=== PATIENT | male | born 1970 | race Hispanic/Latino ===

== ENCOUNTER 2018-05-09 18:20 | Observation (INO) | payer OTHER ==
--- OUTSIDE RECORDS SUMMARY | 2018-05-09 18:24 | XMS REPORT | Clinical Summary ---
:1970 Author Organization [facility] Address [address] [place] [address] Care Team Providers Name Role Phone New ZacariasOVlad Primary Care Provider Allergies Active Allergy Reactions Severity Noted Date Comments Aspirin GI Bleeding High 10/11/2016 GI bleeding Atorvastatin Other (See Comments) Low 12/09/2017 Cough Iodine Hives 05/19/2007 IV iodine and iodine -Cardiac arrest Other 10/11/2016 Anesthesia: during Gallbladder and back surgery pt went into cardiac arrest. ([facility]). Ropinirole 10/11/2016 Hypotensive for 2 days. Shellfish Derived Anaphylaxis High 10/11/2016 Cardiac arrest Medications Medication Sig Dispensed Refills Start End Date Status Date metFORMIN (GLUCOPHAGE) Take 1,000 mg 0 Active 1,000 mg tablet by mouth 2 (two) times a day with meals. BD ULTRA-FINE LILY PEN USE BID UTD 1 Active NEEDLES 32 gauge x 7 32" needle ACCU-CHEK GUIDE strip DIRECTED 4 Active test strips TID 7 ACCU-CHEK GUIDE GLUCOSE TK 1 Active METER misc DIRECTED 7 ACCU-CHEK FASTCLIX misc TEST TID 4 Active DIRECTED 7 LYRICA 200 mg capsule Take 1 tablet 0 Active by mouth 3 8 (three) times a day. sertraline (ZOLOFT) 50 Take 50 mg by 0 Active MG tablet mouth daily. traZODone (DESYREL) 50 Take 50 mg by 0 Active MG tablet mouth nightly. promethazine Take 25 mg by 0 Active (PHENERGAN) 25 MG mouth every 6 tablet (six) hours as needed for nausea or vomiting. rosuvastatin (CRESTOR) Take 10 mg by 0 Active 10 MG tablet mouth nightly. empagliflozin Take 10 mg by 0 Active (JARDIANCE) 10 mg mouth every tablet tablet morning. amLODIPine (NORVASC) 5 Take 5 mg by 0 Active mg tablet mouth daily. esomeprazole (NexIUM) Take 40 mg by 0 05/01/20 Discontinued 40 MG capsule mouth every 18 morning. montelukast (SINGULAIR) Take 10 mg by 0 05/01/20 Discontinued 10 mg tablet mouth every 18 morning. MOMETASONE/FORMOTEROL Inhale 1 puff 0 11/21/19 Discontinued (DULERA INHL) 2 (two) times 18 a day as needed. Uses 2 to 3 times a week. VICTOZA 2-JOVI 0.6 Inject 0.6 mg 3 12/23/19 Discontinued mg/0.1 mL (18 mg/3 mL) under the 7 18 pen injector skin every morning. metoprolol succinate XL TK 1 T PO 3 12/22/19 Discontinued (TOPROL-XL) 25 mg 24 hr ONCE A DAY in 7 18 tablet the morning ondansetron (ZOFRAN) 8 TK 1 T PO q8 2 12/25/19 Discontinued MG tablet prn 7 18 LYRICA 50 mg capsule Take 50 mg by 0 12/22/19 Discontinued mouth 3 7 18 (three) times a day. baclofen (LIORESAL) 10 TK 1 T PO TID 0 05/01/20 Discontinued MG tablet 7 18 hydroCHLOROthiazide TK 1 T PO QD 2 11/21/19 Discontinued (HYDRODIURIL) 12.5 MG IN THE 7 18 tablet MORNING oxyCODone-acetaminophen TK 1 T PO TID 0 05/01/20 Discontinued (PERCOCET) 10-325 mg PRN 7 18 per tablet LYRICA 75 mg capsule TK 1 C TID 1 12/22/19 Discontinued 7 18 JARDIANCE 10 mg tablet TK 1 T PO QD 3 12/23/19 Discontinued 7 18 metroNIDAZOLE (FLAGYL) Take 1 tablet 21 tablet 0 05/18/19 500 MG tablet (500 mg 7 18 total) by mouth 3 (three) times a day for 7 days. ciprofloxacin (CIPRO) Take 1 tablet 14 tablet 0 05/18/19 500 MG tablet (500 mg 7 18 total) by mouth 2 (two) times a day for 7 days. ondansetron ODT (ZOFRAN Take 1 tablet 15 tablet 0 05/23/19 Discontinued ODT) 4 MG (4 mg total) 7 18 disintegrating tablet by mouth every 8 (eight) hours as needed for nausea or vomiting for up to 15 days. acetaminophen-codeine Take 1-2 15 tablet 0 05/14/19 (TYLENOL WITH CODEINE tablets by 7 18 #3) 300-30 mg per mouth every 6 tablet (six) hours as needed for moderate pain for up to 3 days. clindamycin (CLEOCIN) TK ONE C PO Q 0 11/21/19 Discontinued 300 MG capsule 8 H 7 18 TOUJEO SOLOSTAR 300 20 UNITS QHS 4 05/01/20 Discontinued unit/mL (1.5 mL) SC 7 18 insulin pen oxyCODone (ROXICODONE) TK 1 T PO TID 0 09/12/19 Discontinued 10 MG tablet 7 18 acetaminophen-codeine Take 1-2 15 tablet 0 05/28/19 (TYLENOL WITH CODEINE tablets by 8 18 #3) 300-30 mg per mouth every 6 tablet (six) hours as needed for moderate pain for up to 5 days. famotidine (PEPCID) 40 Take 1 tablet 20 tablet 0 06/22/19 MG tablet (40 mg total) 8 18 by mouth nightly as needed for heartburn for up to 30 days. ondansetron ODT (ZOFRAN Take 1 tablet 20 tablet 0 06/22/19 ODT) 4 MG (4 mg total) 8 18 disintegrating tablet by mouth every 8 (eight) hours as needed for nausea or vomiting for up to 30 days. keTOROlac (TORadol) 10 Take 1 tablet 20 tablet 0 06/10/19 mg tablet (10 mg total) 8 18 by mouth every 6 (six) hours as needed for moderate pain for up to 5 days. meloxicam (MOBIC) 7.5 Take 7.5 mg 0 05/01/20 Discontinued mg tablet by mouth 2 18 (two) times a day. milnacipran (SAVELLA) Take 25 mg by 0 05/01/20 Discontinued 25 mg tablet mouth 2 (two) 18 times a day. tamsulosin (FLOMAX) 0.4 Take 1 30 capsule 0 07/13/19 mg capsule,extended capsule (0.4 8 18 release 24hr mg total) by mouth daily for 30 days. traMADol (ULTRAM) 50 mg Take 1 tablet 20 tablet 0 06/17/19 tablet (50 mg total) 8 18 by mouth every 6 (six) hours as needed for moderate pain for up to 5 days. amoxicillin-pot Take 1 tablet 20 tablet 0 09/04/19 clavulanate (AUGMENTIN) by mouth 8 18 875-125 mg per tablet every 12 (twelve) hours for 10 days. acetaminophen-codeine Take 1-2 10 tablet 0 08/28/19 (TYLENOL WITH CODEINE tablets by 8 18 #3) 300-30 mg per mouth every 8 tablet (eight) hours as needed for moderate pain for up to 3 days. famotidine (PEPCID AC) Take 10 mg by 0 05/01/20 Discontinued 10 MG tablet mouth 2 (two) 18 times a day. diphenhydrAMINE Take 1 90 capsule 0 01/21/20 (BENADRYL) 25 mg capsule (25 8 18 capsule mg total) by mouth 3 (three) times a day for 30 days. clindamycin (CLEOCIN) Take 3 60 capsule 0 12/28/19 150 MG capsule capsules (450 8 18 mg total) by mouth 4 (four) times a day for 5 days. levoFLOXacin (LEVAQUIN) Take 1 tablet 5 tablet 0 12/29/19 500 MG tablet (500 mg 8 18 total) by mouth daily for 5 days. oxyCODone-acetaminophen Take one for 21 tablet 0 12/30/19 (PERCOCET) 10-325 mg severe pain 8 18 per tablet as needed every eight hours for up to 7 days. ondansetron (ZOFRAN) 4 Take 1 tablet 10 tablet 0 05/01/20 Discontinued MG tablet (4 mg total) 8 18 by mouth every 8 (eight) hours as needed for nausea or vomiting for up to 10 doses. pregabalin (LYRICA) 200 Take 200 mg 0 05/01/20 Discontinued MG capsule by mouth 2 18 (two) times a day. Active Problems Problem Noted Date Generalized weakness 05/04/2018 Arthralgia of multiple sites 05/01/2018 Obesity (BMI 30-39.9) 02/26/2018 Cellulitis 12/21/2017 Essential hypertension 12/09/2017 Mixed hyperlipidemia 12/09/2017 Chest pain, rule out acute myocardial infarction 02/10/2017 Resolved Problems Problem Noted Date Resolved Date Generalized weakness 05/01/2018 05/01/2018 Encounters Date Type Specialty Care Team Description 05/01/2018 - Hospital Encounter General Internal DiptiChristiano Generalized weakness 05/05/2018 Shruti Walls MD (Primary Dx) Jude Lawson MD 02/07/2018 Emergency Emergency Medicine [facility], initial encounter (Primary Dx); Anthony Francis MD Pain of right forearm; Hand pain, right 01/15/2018 Emergency Emergency Medicine [facility], initial encounter (Primary Dx); Santiago Estrada Contusion of rib on left side, initial encounter; Contusion of right upper extremity, initial encounter; Hematoma of scalp, initial encounter; Secondary hypertension 01/02/2018 - Emergency Emergency Medicine Kennedy Rodgers Abdominal pain, 01/03/2018 DO Mariola unspecified abdominal location (Primary Dx) 12/24/2017 Emergency Emergency Medicine Gal Dela Cruz Abdominal pain, MD Eufemia unspecified abdominal location (Primary Dx) 12/22/2017 Documentation Pain Medicine Eliezer Gauthier MD 12/21/2017 - Hospital Encounter General Surgery Gayla Olguin Cellulitis of 12/22/2017Emily Wyman MD abdominal wall Eduardo Farrell, (Primary Dx) DO 12/21/2017 Orders Only Pain Medicine Eliezer Gauthier MD 12/21/2017 Documentation Pain Medicine Eliezer Gauthier MD 12/20/2017 - Emergency Emergency Medicine Js Alegre, Postoperative 12/21/2017 MD infection, initial encounter (Primary Dx) 12/20/2017 Intake Access N/A 12/18/2017 Anesthesia Event Orthopedic Surgery Maryan Gudino, PASSENGER SERVICE AGENT 12/18/2017 Surgery Orthopedic Surgery Abrahan, INSERTION PAIN PUMP MD Eliezer FENTANYL 12/18/2017 Hospital Encounter Orthopedic Surgery Eliezer Gauthier MD 11/20/2017 Pre-Admit Testing Pre-Admission Abrahan, Preop testing Appointment Testing MD Eliezer (Primary Dx) 11/20/2017 Emergency Emergency Medicine Kennedy Rodgers Acute right-sided Mohammad, low back pain, with sciatica presence unspecified (Primary Dx) 10/29/2017 Emergency Emergency Medicine Pam Rubio, Shoulder strain, He Cortes, cherelle, initial MD encounter (Primary Dx) 09/11/2017 Anesthesia Event Orthopedic Surgery Deng Manzanares, OTR FLATBED DRIVER 09/11/2017 Surgery Orthopedic Surgery Abrahan, INTRATHECAL, FOR MD Eliezer PAIN PUMP TRIAL 09/11/2017 Hospital Encounter Orthopedic Surgery Eliezer Gauthier MD 08/24/2017 Emergency Emergency Medicine Camilo Olguin, Pain due to dental caries (Primary Dx); Chronic dental pain; Dental abscess; Hyperglycemia; Acute maxillary sinusitis, recurrence not specified 06/12/2017 Emergency Emergency Medicine Herman, Urinary hesitancy ( Primary Dx); Hema-Jerardo Essential hypertension MD Hair 06/05/2017 Emergency Emergency Medicine Herman, Chronic bilateral Hema-Jerardo low back pain with MD Hair bilateral sciatica (Primary Dx) 05/23/2017 Emergency Emergency Medicine Js Alegre, Epigastric pain (Primary Dx) 05/11/2017 Emergency Emergency Medicine Olga, Acute gastritis Anthony Francis MD without hemorrhage, unspecified gastritis type (Primary Dx) after 05/08/2017 Family History Medical History Relation Name Comments Leukemia Brother Diabetes type II Father Hypertension Father Stroke Father No Known Problems Maternal Grandfather Cancer Maternal Grandmother Diabetes Maternal Grandmother Diabetes Mother Hypertension Mother Stroke Mother No Known Problems Paternal Grandfather No Known Problems Paternal Grandmother Cancer Sister Diabetes type II Sister Ovarian cancer Sister Ovarian cancer Sister Relation Name Status Comments Brother Father Maternal Grandfather Maternal Grandmother Mother Paternal Grandfather Paternal Grandmother Sister Sister Social History Tobacco Use Types Packs/Day Years Used Date Never Smoker Smokeless Tobacco: Never Used Alcohol Use Drinks/Week oz/Week Comments No Sex Assigned at Date Recorded Not on file Job Start Date Occupation Industry Not on file Not on file Not on file Travel History Travel Start Travel End No recent travel history available. Last Filed Vital Signs Vital Sign Reading Time Taken Blood Pressure 109/57 05/05/2018 10:44 AM [employer] SUPERVIS[employer] Pulse 64 05/05/2018 10:44 AM [employer] Temperature 36.8 C (98.2 F) 05/05/2018 10:44 AM [employer]PER[employer] Respiratory Rate 15 05/05/2018 10:44 AM [employer] Oxygen Saturation 97% 05/05/2018 10:44 AM [employer]PER[employer] Inhaled Oxygen Concentration - - Weight 111 kg (244 lb) 05/01/2018 12:14 PM [employer] Height 167.6 cm (5' 6") 05/01/2018 12:14 PM [employer] SUPER[employer] Body Mass Index 39.38 05/01/2018 12:14 PM [employer] SUPER[employer]OR Plan of Treatment Health Maintenance Due Date Last Done Comments INFLUENZA VACCINE 12/11/2017 Implants Implanted Type Area Package Line Relief Operator Device Shelf Model / Identifier Expiration Serial Date / Lot Surescan Sensor Ipg - [id number] - [id number] IMPLANT N/A: N/A [employer] -NEUROLO 08/07/2017 [id number] / Implanted: Qty: 1 on 10/17/2016 by Eliezer Gauthier MD DEVICES GICAL [id number] / N/A Patient Buyer Intern - [id number] [id number] IMPLANT N/A: N/A [employer]-NEUROLO [id number] / Implanted: Qty: 1 on 10/17/2016 by Eliezer Gauthier MD DEVICES VERONICA / Charging System, W Sensor, Spinal Stimulation, Ea - [id number] [id number] IMPLANT N/A : N/A [employer]-NEUROLO [id number] / Implanted: Qty: 1 on 10/17/2016 by Eliezer Gauthier MD DEVICES VERONICA / Kit Pckt Adptr For Scs 2x4in - [id number] Neurosurgical N/A: N/A [employer] 01/23/2020 [id number] / Implanted: Qty: 1 on 10/17/2016 by Eliezer Gauthier MD Implants NEUROMODULATION / [id number] Pump Infsn Synchromed Ii W/ Fltr Sut Loop Prgrmbl Rsvr 20ml - [id number] - [id number] Neurosurgical Right: [employer] 05/26/2019 [id number] / Implanted: Qty: 1 on 12/18/2017 by Eliezer Gauthier MD Implants Abdomen, NEUROMODULATION [id number] / Lower [id number] Quadrant Passer Cath W/ Rmvbl Hndl And Ppe Obtrtr 38cm Strl - [id number] Neurosurgical N/A: N/A [employer] [facility] [email or web address]] - 10/10/2022 [id number] / Implanted: Qty: 1 on 12/18/2017 by Eliezer Gauthier MD Implants NEUROLOGICAL / [id number] Procedures Procedure Name Priority Date/Time Associated Comments Diagnosis ESTIMATED GFR Routine 05/04/2018 5:05 Results for this AM [employer] SUPER[employer] procedure are in the results section. BASIC METABOLIC PANEL Routine 05/04/2018 5:05 Results for this AM [employer] procedure are in the results section. HC COMPLETE BLD COUNT Routine 05/04/2018 5:05 Results for this W/AUTO DIFF AM [employer]PER[employer] procedure are in the results section. POC GLUCOSE Routine 05/02/2018 5:46 Results for this PM [employer]PER[employer] procedure are in the results section. POC GLUCOSE Routine 05/01/2018 5:01 Results for this PM [employer] procedure are in the results section. URINALYSIS SCREEN AND Routine 05/01/2018 3:33 Results for this MICROSCOPY, WITH REFLEX PM [employer] SUPERVISOR procedure are in TO CULTURE the results section. URINE CULTURE Routine 05/01/2018 3:33 Results for this PM [employer]PER[employer] procedure are in the results section. CT HEAD WO CONTRAST STAT 05/01/2018 2:36 Results for this PM [employer] SUPER[employer] procedure are in the results section. VENOUS BLOOD GAS STAT 05/01/2018 1:51 Results for this PM [employer]PER[employer] procedure are in the results section. XR CHEST 1 VW PORTABLE STAT 05/01/2018 1:10 Results for this PM [employer]PER[employer] procedure are in the results section. PROCALCITONIN Routine 05/01/2018 12:40 Results for this PM [employer] procedure are in the results section. C-REACTIVE PROTEIN Routine 05/01/2018 12:40 Results for this PM [employer]PER[employer] procedure are in the results section. ESTIMATED GFR STAT 05/01/2018 12:40 Results for this PM [employer]PER[employer] procedure are in the results section. TROPONIN STAT 05/01/2018 12:40 Results for this PM [employer]PER[employer] procedure are in the results section. CREATINE KINASE, TOTAL STAT 05/01/2018 12:40 Results for this (CPK) PM [employer] SUPER[employer] procedure are in the results section. HC COMPLETE BLD COUNT STAT 05/01/2018 12:40 Results for this W/AUTO DIFF PM [employer] SUPER[employer] procedure are in the results section. LIPASE LEVEL STAT 05/01/2018 12:40 Results for this PM [employer]PER[employer] procedure are in the results section. HEPATIC FUNCTION PANEL STAT 05/01/2018 12:40 Results for this PM [employer] SUPER[employer] procedure are in the results section. BASIC METABOLIC PANEL STAT 05/01/2018 12:40 Results for this PM [employer] SUPER[employer]OR procedure are in the results section. RESPIRATORY PATHOGEN Routine 05/01/2018 12:40 Results for this PANEL PM [employer] SUPER[employer] procedure are in the results section. INFLUENZA ANTIGEN TEST, Routine 05/01/2018 12:40 Results for this REFLEX NEGATIVE TO RPP PM [employer]PER[employer]OR procedure are in the results section. ECG ED PRELIMINARY Routine 05/01/2018 12:19 Results for this INTERPRETATION PM [employer] procedure are in the results section. ECG 12-LEAD STAT 05/01/2018 12:18 Results for this PM [employer]PER[employer] procedure are in the results section. POC GLUCOSE Routine 05/01/2018 12:13 Results for this PM [employer] procedure are in the results section. XR FOREARM 2 VW RIGHT STAT 02/07/2018 2:37 Results for this AM CDT procedure are in the results section. XR HAND 3+ VW RIGHT STAT 02/07/2018 2:37 Results for this AM CDT procedure are in the results section. XR FOREARM 2 VW RIGHT STAT 01/15/2018 2:19 Results for this AM CDT procedure are in the results section. XR RIBS W PA CHEST LEFT STAT 01/15/2018 2:19 Results for this AM CDT procedure are in the results section. CT HEAD WO CONTRAST STAT 01/15/2018 2:06 Results for this AM CDT procedure are in the results section. ZZESTIMATED GFR STAT 01/15/2018 1:57 Results for this AM CDT procedure are in the results section. TROPONIN STAT 01/15/2018 1:57 Results for this AM CDT procedure are in the results section. LIPASE LEVEL STAT 01/15/2018 1:57 Results for this AM CDT procedure are in the results section. PARTIAL THROMBOPLASTIN STAT 01/15/2018 1:57 Results for this TIME (PTT) AM CDT procedure are in the results section. PROTHROMBIN TIME WITH STAT 01/15/2018 1:57 Results for this INR AM CDT procedure are in the results section. HEPATIC FUNCTION PANEL STAT 01/15/2018 1:57 Results for this AM CDT procedure are in the results section. BASIC METABOLIC PANEL STAT 01/15/2018 1:57 Results for this AM CDT procedure are in the results section. HC COMPLETE BLD COUNT STAT 01/15/2018 1:57 Results for this W/AUTO DIFF AM CDT procedure are in the results section. ECG 12-LEAD STAT 01/15/2018 1:15 Results for this AM CDT procedure are in the results section. ECG ED PRELIMINARY Routine 01/15/2018 1:09 Results for this INTERPRETATION AM CDT procedure are in the results section. CT RENAL STONE PROTOCOL STAT 01/02/2018 11:04 Results for this PM CDT procedure are in the results section. ECG 12-LEAD Routine 01/02/2018 10:45 Results for this PM CDT procedure are in the results section. ZZESTIMATED GFR STAT 01/02/2018 10:40 Results for this PM CDT procedure are in the results section. LIPASE LEVEL STAT 01/02/2018 10:40 Results for this PM CDT procedure are in the results section. COMPREHENSIVE METABOLIC STAT 01/02/2018 10:40 Results for this PANEL PM CDT procedure are in the results section. HC COMPLETE BLD COUNT STAT 01/02/2018 10:40 Results for this W/AUTO DIFF PM CDT procedure are in the results section. ECG ED PRELIMINARY Routine 01/02/2018 10:34 Results for this INTERPRETATION PM CDT procedure are in the results section. CT ABDOMEN PELVIS WO STAT 12/24/2017 8:21 Results for this CONTRAST PM CDT procedure are in the results section. TROPONIN STAT 12/24/2017 8:08 Results for this PM CDT procedure are in the results section. CREATINE KINASE, TOTAL STAT 12/24/2017 8:08 Results for this (CPK) PM CDT procedure are in the results section. ZZESTIMATED GFR STAT 12/24/2017 8:08 Results for this PM CDT procedure are in the results section. B NATRIURETIC PEPTIDE STAT 12/24/2017 8:08 Results for this PM CDT procedure are in the results section. PARTIAL THROMBOPLASTIN STAT 12/24/2017 8:08 Results for this TIME (PTT) PM CDT procedure are in the results section. PROTHROMBIN TIME WITH STAT 12/24/2017 8:08 Results for this INR PM CDT procedure are in the results section. LIPASE LEVEL STAT 12/24/2017 8:08 Results for this PM CDT procedure are in the results section. COMPREHENSIVE METABOLIC STAT 12/24/2017 8:08 Results for this PANEL PM CDT procedure are in the results section. HC COMPLETE BLD COUNT STAT 12/24/2017 8:08 Results for this W/AUTO DIFF PM CDT procedure are in the results section. URINALYSIS SCREEN AND STAT 12/24/2017 8:00 Results for this MICROSCOPY, WITH REFLEX PM CDT procedure are in TO CULTURE the results section. URINE CULTURE STAT 12/24/2017 8:00 Results for this PM CDT procedure are in the results section. ECG ED PRELIMINARY Routine 12/24/2017 7:46 Results for this INTERPRETATION PM CDT procedure are in the results section. ECG 12-LEAD Routine 12/24/2017 6:24 Results for this PM CDT procedure are in the results section. ZZESTIMATED GFR Routine 12/22/2017 11:20 Results for this AM CDT procedure are in the results section. COMPREHENSIVE METABOLIC Routine 12/22/2017 11:20 Results for this PANEL AM CDT procedure are in the results section. POC GLUCOSE Routine 12/22/2017 11:19 Results for this AM CDT procedure are in the results section. POC GLUCOSE Routine 12/22/2017 7:08 Results for this AM CDT procedure are in the results section. HC COMPLETE BLD COUNT Routine 12/22/2017 6:30 Results for this W/AUTO DIFF AM CDT procedure are in the results section. POC GLUCOSE Routine 12/21/2017 8:49 Results for this PM CDT procedure are in the results section. POC GLUCOSE Routine 12/21/2017 5:03 Results for this PM CDT procedure are in the results section. POC GLUCOSE Routine 12/21/2017 11:16 Results for this AM CDT procedure are in the results section. ECG 12-LEAD STAT 12/21/2017 10:24 Results for this AM CDT procedure are in the results section. POC GLUCOSE Routine 12/21/2017 7:26 Results for this AM CDT procedure are in the results section. POC GLUCOSE Routine 12/21/2017 4:02 Results for this AM CDT procedure are in the results section. TROPONIN Routine 12/21/2017 3:56 Results for this AM CDT procedure are in the results section. ZZESTIMATED GFR Routine 12/21/2017 3:56 Results for this AM CDT procedure are in the results section. PHOSPHORUS LEVEL Routine 12/21/2017 3:56 Results for this AM CDT procedure are in the results section. MAGNESIUM LEVEL Routine 12/21/2017 3:56 Results for this AM CDT procedure are in the results section. COMPREHENSIVE METABOLIC Routine 12/21/2017 3:56 Results for this PANEL AM CDT procedure are in the results section. PARTIAL THROMBOPLASTIN Routine 12/21/2017 3:56 Results for this TIME (PTT) AM CDT procedure are in the results section. PROTHROMBIN TIME WITH Routine 12/21/2017 3:56 Results for this INR AM CDT procedure are in the results section. HC COMPLETE BLD COUNT Routine 12/21/2017 3:56 Results for this W/AUTO DIFF AM CDT procedure are in the results section. IA CRITICAL CARE, E/M Routine 12/21/2017 1:05 Results for this 30-74 MINUTES AM CDT procedure are in the results section. CT ABDOMEN PELVIS WO STAT 12/20/2017 9:47 Results for this CONTRAST PM CDT procedure are in the results section. BLOOD CULTURE, AEROBIC Routine 12/20/2017 9:25 Results for this & ANAEROBIC PM CDT procedure are in the results section. ZZESTIMATED GFR STAT 12/20/2017 9:20 Results for this PM CDT procedure are in the results section. C-REACTIVE PROTEIN STAT 12/20/2017 9:20 Results for this PM CDT procedure are in the results section. URINALYSIS SCREEN AND STAT 12/20/2017 9:20 Results for this MICROSCOPY, WITH REFLEX PM CDT procedure are in TO CULTURE the results section. LIPASE LEVEL STAT 12/20/2017 9:20 Results for this PM CDT procedure are in the results section. HEPATIC FUNCTION PANEL STAT 12/20/2017 9:20 Results for this PM CDT procedure are in the results section. LACTIC ACID LEVEL, STAT 12/20/2017 9:20 Results for this SEPSIS - NOW AND REPEAT PM CDT procedure are in 2X EVERY 3 HOURS the results section. TROPONIN STAT 12/20/2017 9:20 Results for this PM CDT procedure are in the results section. CREATINE KINASE, TOTAL STAT 12/20/2017 9:20 Results for this (CPK) PM CDT procedure are in the results section. SEDIMENTATION RATE STAT 12/20/2017 9:20 Results for this PM CDT procedure are in the results section. HC COMPLETE BLD COUNT STAT 12/20/2017 9:20 Results for this W/AUTO DIFF PM CDT procedure are in the results section. BASIC METABOLIC PANEL STAT 12/20/2017 9:20 Results for this PM CDT procedure are in the results section. URINE CULTURE STAT 12/20/2017 9:20 Results for this PM CDT procedure are in the results section. BLOOD CULTURE, AEROBIC Routine 12/20/2017 9:20 Results for this & ANAEROBIC PM CDT procedure are in the results section. POC GLUCOSE Routine 12/18/2017 1:06 Results for this PM CDT procedure are in the results section. OR FL < 1 HOUR Routine 12/18/2017 12:00 Results for this PM CDT procedure are in the results section. IA AN ELECTIVE Routine 12/18/2017 11:42 ENDOTRACHEAL AIRWAY AM CDT Procedure Note - Omega Jo CRNA - 12/18/2017 11:42 AM CDT Airway Date/Time: 12/18/2017 11:23 AM Performed by: OMEGA JO Authorized by: REGINA LATHAM Location: [place] Urgency: Elective Difficult Airway: No Resident/OTR FLATBED DRIVER/AA: OMEGA JO Performed by: resident/OTR FLATBED DRIVER/AA Preoxygenated with 100% O2: Yes C-spine Precautions Maintained Throughout: Yes Mask Ventilation: Assisted mask Final Airway Type: Endotracheal airway Final Endotracheal Airway: ETT Cuffed: Yes Technique Used: Direct laryngoscopy Insertion Site: Oral Blade Type: Anthony Laryngoscope Blade/Videolaryngoscope Blade Size: 4 ETT Size (mm): 8.0 Cuff at minimum occlusion pressure: Yes Measured from: Lips ETT to Lips (cm): 22 Placement Verified by: CO2 detection, direct visualization and equal breath sounds Laryngoscopic view: Grade I - full view of glottis Rapid Sequence Induction (RSI): No Modified RSI: No Number of Attempts at Approach: 1 INSERTION, PUMP, TRIAL, 12/18/2017 10:30 AM CDT Lumbago FOR PAIN Chronic pain associated with significant psychosocial dysfunction Special Needs LARGE C-ARM BeamingTRONIC POC GLUCOSE Routine 12/18/2017 9:36 AM Results for this CDT procedure are in the results section. ECG PRE/POST OP Routine 11/20/2017 4:45 PM Preop testing Results for this CDT procedure are in the results section. ZZESTIMATED GFR Routine 11/20/2017 4:34 PM Results for this CDT procedure are in the results section. HEMOGLOBIN A1C Routine 11/20/2017 4:34 PM Preop testing Results for this CDT procedure are in the results section. COMPREHENSIVE METABOLIC Routine 11/20/2017 4:34 PM Preop testing Results for this PANEL CDT procedure are in the results section. HC COMPLETE BLD COUNT Routine 11/20/2017 4:34 PM Preop testing Results for this W/AUTO DIFF CDT procedure are in the results section. XR CHEST 2 VW STAT 10/29/2017 7:50 PM Results for this CDT procedure are in the results section. XR SHOULDER 2+ VW LEFT STAT 10/29/2017 7:50 PM Results for this CDT procedure are in the results section. POC GLUCOSE Routine 09/11/2017 1:37 PM Results for this CDT procedure are in the results section. OR FL < 1 HOUR Routine 09/11/2017 1:00 PM Results for this CDT procedure are in the results section. INSERTION, CATHETER, 09/11/2017 12:00 PM Lower back pain INTRATHECAL, FOR PAIN CDT PUMP TRIAL Case Notes REQ 1030 START Special Needs LARGE C-ARM POC GLUCOSE Routine 09/11/2017 10:37 AM CDT ECG 12-LEAD STAT 08/24/2017 10:48 PM CDT XR CHEST 2 VW STAT 08/24/2017 10:[address] MAXILLOFACIAL WO CONTRAST STAT 08/24/2017 10:[address] HEAD WO CONTRAST STAT 08/24/2017 10:30 PM CDT ZZESTIMATED GFR STAT 08/24/2017 10:10 PM CDT TROPONIN STAT 08/24/2017 10:10 PM CDT COMPREHENSIVE METABOLIC STAT 08/24/2017 10:10 PM CDT Results for this PANEL procedure are in the results section. HC COMPLETE BLD COUNT W/AUTO STAT 08/24/2017 10:10 PM CDT Results for this DIFF procedure are in the results section. ECG ED PRELIMINARY Routine 08/24/2017 9:34 PM CDT Results for this INTERPRETATION procedure are in the results section. ZZESTIMATED GFR Routine 06/12/2017 3:25 AM [employer]OLD SHOP SUPERVISOR COMPREHENSIVE METABOLIC Routine 06/12/2017 3:25 AM [employer] SUPER[employer]OR Results for this PANEL procedure are in the results section. URINALYSIS SCREEN AND STAT 06/12/2017 2:50 AM [employer] SUPER[employer]OR Results for this MICROSCOPY, WITH REFLEX TO procedure are in the CULTURE results section. URINE CULTURE STAT 06/12/2017 2:50 AM [employer] SUPERVISOR HC COMPLETE BLD COUNT W/AUTO STAT 06/12/2017 2:45 AM [employer] SUPERVISOR Results for this DIFF procedure are in the results section. ECG 12-LEAD STAT 05/23/2017 10:[address] ABDOMEN PELVIS WO STAT 05/23/2017 10:38 PM [employer] SUPER[employer]OR Results for this CONTRAST procedure are in the results section. ZZESTIMATED GFR STAT 05/23/2017 10:10 PM [employer] SUPER[employer]OR LACTIC ACID LEVEL, SEPSIS - STAT 05/23/2017 10:10 PM [employer] SUPER[employer]OR Results for this NOW AND REPEAT 2X EVERY 3 procedure are in the HOURS results section. MAGNESIUM LEVEL STAT 05/23/2017 10:10 PM [employer] SUPER[employer]OR TROPONIN STAT 05/23/2017 10:10 PM [employer] SUPER[employer]OR URINALYSIS SCREEN AND STAT 05/23/2017 10:10 PM [employer] SUPER[employer]OR Results for this MICROSCOPY, WITH REFLEX TO procedure are in the CULTURE results section. PARTIAL THROMBOPLASTIN TIME STAT 05/23/2017 10:10 PM [employer] SUPERVISOR Results for this (PTT) procedure are in the results section. PROTHROMBIN TIME WITH INR STAT 05/23/2017 10:10 PM [employer] SUPERVISOR HC COMPLETE BLD COUNT W/AUTO STAT 05/23/2017 10:10 PM [employer] SUPERVISOR Results for this DIFF procedure are in the results section. LIPASE LEVEL STAT 05/23/2017 10:10 PM [employer] SUPERVISOR HEPATIC FUNCTION PANEL STAT 05/23/2017 10:10 PM [employer] SUPERVISOR BASIC METABOLIC PANEL STAT 05/23/2017 10:10 PM [employer] SUPERVISOR URINE CULTURE STAT 05/23/2017 10:10 PM [employer] SUPERVISOR ECG ED PRELIMINARY Routine 05/12/2017 10:31 AM [employer] SUPERVISOR Results for this INTERPRETATION procedure are in the results section. CT ABDOMEN PELVIS WO STAT 05/11/2017 8:24 PM [employer] SUPERVISOR Results for this CONTRAST procedure are in the results section. URINALYSIS SCREEN AND STAT 05/11/2017 8:20 PM [employer] SUPERVISOR Results for this MICROSCOPY, WITH REFLEX TO procedure are in the CULTURE results section. URINE CULTURE STAT 05/11/2017 8:20 PM [employer] SUPERVISOR INFLUENZA ANTIGEN Routine 05/11/2017 6:30 PM [employer] SUPERVISOR ZZESTIMATED GFR STAT 05/11/2017 6:25 PM [employer] SUPER[employer]OR LIPASE LEVEL STAT 05/11/2017 6:25 PM [employer] SUPERVISOR COMPREHENSIVE METABOLIC STAT 05/11/2017 6:25 PM [employer] SUPER[employer]OR Results for this PANEL procedure are in the results section. PARTIAL THROMBOPLASTIN TIME STAT 05/11/2017 6:25 PM [employer] SUPERVISOR Results for this (PTT) procedure are in the results section. PROTHROMBIN TIME WITH INR STAT 05/11/2017 6:25 PM [employer] SUPERVISOR HC COMPLETE BLD COUNT W/AUTO STAT 05/11/2017 6:25 PM [employer] SUPER[employer]OR Results for this DIFF procedure are in the results section. XR ABDOMEN ACUTE INC CHEST STAT 05/11/2017 6:20 PM [employer] SUPERVISOR ECG 12-LEAD Routine 05/11/2017 3:53 PM [employer] SUPERVISOR after 05/08/2017 Results Estimated GFR (05/04/2018 5:05 AM [employer] SUPERVISOR)Only the most recent of2 resultswithin the time period is included. Estimated GFR 89 mL/min/1.73 m2 [facility] Comment: [facility] CatergoryUnitsInterpretation G1 >=90 Normal or high G2 60-89Mildly decreased [id number] to moderately decreased [id number] to severely decreased G4 15-29Severely decreased G5 <15Kidney failure The eGFR was calculated using the Chronic Kidney Disease Epidemiology Collaboration (CKD-EPI) equation. Interpretation is based on recommendations of the National Kidney Foundation-Kidney Disease Outcomes Quality Initiative (NKF-KDOQI) published in 2014. Specimen Plasma specimen Performing Organization Address City/State/Zipcode Phone Number [facility] DEPARTMENT OF PATHOLOGY AND [address] [place] [address] [facility] [address] [address] [place], [place] [id number] [place] [address] CBC with platelet and differential (05/04/2018 5:05 AM [employer] SUPERVISOR)Only the most recent of13 resultswithin the time period is included. WBC 9.20 4.50 - 11.00 k/uL [facility] RBC 4.68 4.40 - 6.00 m/uL [facility] HGB 13.8 (L) 14.0 - 18.0 g/dL [facility] HCT 42.6 41.0 - 51.0 % [facility] MCV 91.0 82.0 - 100.0 fL [facility] MCH 29.5 27.0 - 34.0 pg [facility] MCHC 32.4 31.0 - 37.0 g/dL [facility] RDW - SD 45.8 37.0 - 55.0 fL [facility] MPV 12.6 8.8 - 13.2 fL [facility] Platelet count 134 (L) 150 - 400 k/uL [facility] Nucleated RBC 0.00 /100 WBC [facility] Neutrophils 54.7 39.0 - 69.0 % [facility] Lymphocytes 33.8 25.0 - 45.0 % [facility] Monocytes 6.2 0.0 - 10.0 % [facility] Eosinophils 3.6 0.0 - 5.0 % [facility] Basophils 0.5 0.0 - 1.0 % [facility] Specimen Blood Performing Organization Address City/[facility] Phone Number [facility] DEPARTMENT OF PATHOLOGY AND [address] [place] [address] Basic metabolic panel (05/04/2018 5:05 AM M[employer] SUPERVISOR)Only the most recent of5 resultswithin the time period is included. Sodium 142 135 - 148 mEq/L [facility] Potassium 4.0 3.5 - 5.0 mEq/L [facility] Chloride 108 98 - 112 mEq/L [facility] CO2 25 24 - 31 mEq/L [facility] Anion gap 9@ANIO 7 - 15 mEq/L [facility] BUN 13 6 - 20 mg/dL [facility] Creatinine 1.00 0.70 - 1.20 mg/dL [facility] Glucose 120 (H) 65 - 99 mg/dL [facility] Calcium 8.9 8.3 - 10.2 mg/dL [facility] Specimen Plasma specimen Performing Organization Address [facility] Phone Number [facility] DEPARTMENT OF PATHOLOGY AND [address] [place] [address] POC glucose (05/02/2018 5:46 PM [employer] SUPERVISOR)Only the most recent of14 resultswithin the time period is included. POC glucose 119 (H) 65 - 99 mg/dL [facility] Comment: HOSPITAL Meter ID: [id number] Sql Data Analyst: Yuval Barrientos Performing Organization Address City/[facility] Hospital[facility] Phone Number [facility] DEPARTMENT OF PATHOLOGY AND [address] [place] [address] Urinalysis screen and microscopy, with reflex to culture (05/01/2018 3:33 PM [employer] SUPERVISOR)Only the most recent of6 resultswithin the time period is included. Specimen site Clean catch [facility] Color, UA Yellow [facility] Appearance, UA Clear [facility] Specific gravity, UA 1.028 1.001 - 1.035 [facility] pH, UA 5.0 5.0 - 8.5 [facility] Protein, UA Negative Negative [facility] Glucose, UA 3+ (A) Negative [facility] Ketones, UA Negative Negative [facility] Bilirubin, UA Negative Negative [facility] Blood, UA Negative Negative [facility] Nitrite, UA Negative Negative [facility] Urobilinogen, UA 4.0 (A) <2.0 [facility] Leukocyte esterase, UA Negative Negative [facility] Epithelial cells, UA Few /HPF [facility] WBC, UA 0-5 0 - 1 /HPF [facility] RBC, UA 0-5 0 - 5 /HPF [facility] Bacteria, UA None seen None seen [facility] Yeast, UA None seen [facility] Yeast with pseudohyphae, UA None seen [facility] Specimen Urine Performing Organization Address City/[facility] Phone Number [facility] DEPARTMENT OF PATHOLOGY AND [address] [place] [address] Urine culture (05/01/2018 3:33 PM [employer] SUPERVISOR)Only the most recent of6 resultswithin the time period is included. Urine culture SEE COMMENTComment: Bacteriuria [facility] screen negative. [facility] Specimen Urine Performing Organization Address City/[facility] Phone Number [facility] DEPARTMENT OF PATHOLOGY AND [address] [place] [address] [address] [place] Head Wo Contrast (05/01/2018 2:36 PM [employer] SUPERVISOR)Only the most recent of3 resultswithin the time period is included. Narrative Performed At EXAMINATION: CT HEAD WO CONTRAST [facility] CLINICAL HISTORY: headacheweakness COMPARISON:CT brain from January 15, 2018. TECHNIQUE: Noncontrast enhanced images of the brain were obtained from the skull base to the vertex. Both soft tissue and bone reconstruction algorithms were performed.CT scans are performed using radiation dose reduction techniques. Technical factors are evaluated and adjusted to ensure appropriate moderation of exposure. Automated dose management technology is applied to adjust radiation exposure while achieving a diagnostic quality image. FINDINGS: Artifacts obscure some details. There is no definite evidence of acute intracranial hemorrhage or mass, hydrocephalus or midline shift, stroke or thrombus in the vessels. There is nonspecific enlargement of the ventricles and extra axial space greater in the anterior region. There is mild calcification in the cade of some of the arteries. The orbits, sinuses and mastoid air cells do not show significant abnormality. IMPRESSION: No acute intracranial abnormality identified. [id number] Procedure Note Hm Interface, Radiology Results Incoming - 05/01/2018 2:42 PM [employer] SUPERVISOR EXAMINATION: CT HEAD WO CONTRAST CLINICAL HISTORY: headache weakness COMPARISON: CT brain from January 15, 2018. TECHNIQUE: Noncontrast enhanced images of the brain were obtained from the skull base to the vertex. Both soft tissue and bone reconstruction algorithms were performed. CT scans are performed using radiation dose reduction techniques. Technical factors are evaluated and adjusted to ensure appropriate moderation of exposure. Automated dose management technology is applied to adjust radiation exposure while achieving a diagnostic quality image. FINDINGS: Artifacts obscure some details. There is no definite evidence of acute intracranial hemorrhage or mass, hydrocephalus or midline shift, stroke or thrombus in the vessels. There is nonspecific enlargement of the ventricles and extra axial space greater in the anterior region. There is mild calcification in the cade of some of the arteries. The orbits, sinuses and mastoid air cells do not show significant abnormality. IMPRESSION: No acute intracranial abnormality identified. [facility]-[id number] Performing Organization Address City/State/Zipcode Phone Number [facility] [address] [place] [address] Venous blood gas (05/01/2018 1:51 PM [employer] SUPERVISOR) pH, venous 7.36 7.32 - 7.42 [facility] pCO2, venous 43 (L) 45 - 51 mmHg [facility] pO2, venous 61 (H) 25 - 40 mmHg [facility] Base excess, venous -2 -2 - 2 meq/L [facility] O2 saturation, venous 92 (H) 40 - 70 % [facility] Bicarbonate, venous 23.1 21.0 - 28.0 mmol/L [facility] FiO2, inspired O2% Unknown % [facility] Specimen Blood Performing Organization Address City/[facility] Phone Number [facility] DEPARTMENT OF PATHOLOGY AND [address] [place] [address] [facility] [address] [place] [address] [facility] XR Chest 1 Vw Portable (05/01/2018 1:10 PM [employer] SUPERVISOR) Narrative Performed At EXAMINATION:XR CHEST 1 [facility]:weaknessfatigue COMPARISON:Left rib series from 01/15/2018 IMPRESSION: An AP radiograph of the chest was submitted for interpretation. Mild pulmonary vascular congestion. Otherwise no significant change in appearance of the chest when compared to previous examination. Rounded opacity overlying the left suprahilar region likely represents a vascular opacity rather than a pulmonary nodule. The mediastinal contours and cardiac silhouette are unchanged. Mild cardiomegaly. The bones are unremarkable. [facility]-[id number] Procedure Note Interface, Radiology Results Incoming - 05/01/2018 1:27 PM [employer] SUPERVISOR EXAMINATION: XR CHEST 1 VW PORTABLE CLINICAL HISTORY: weakness fatigue COMPARISON: Left rib series from 01/15/2018 IMPRESSION: An AP radiograph of the chest was submitted for interpretation. Mild pulmonary vascular congestion. Otherwise no significant change in appearance of the chest when compared to previous examination. Rounded opacity overlying the left suprahilar region likely represents a vascular opacity rather than a pulmonary nodule. The mediastinal contours and cardiac silhouette are unchanged. Mild cardiomegaly. The bones are unremarkable. [facility]-[id number] Performing Organization Address City/[facility]/Zipcode Phone Number [facility] [address] [place] [address] Respiratory pathogen panel (05/01/2018 12:40 PM [employer] SUPERVISOR) Respiratory pathogen Negative for all pathogens tested: [facility] panel Negative for Adenovirus HOSPITAL Negative for Coronavirus HKU1 Negative for Coronavirus NL63 Negative for Coronavirus 229E Negative for Coronavirus OC43 Negative for Human Metapneumovirus Negative for Rhinovirus/Enterovirus Negative for Influenza A Negative for Influenza A/H1 Negative for Influenza A/H3 Negative for Influenza A/H1-2009 Negative for Influenza B Negative for Parainfluenza Virus 1 Negative for Parainfluenza Virus 2 Negative for Parainfluenza Virus 3 Negative for Parainfluenza Virus 4 Negative for Respiratory Syncytial Virus Negative for Bordetella pertussis Negative for Chlamydophila pneumoniae Negative for Mycoplasma pneumoniae This real-time PCR assay detects the presence of nucleic acids (RNA or DNA) for the respiratory pathogens listed. A result of "Not-detected" does not exclude the possibility of the presence of one or more pathogens at concentrations less than the detectable limits of the assay. Comment: Specimen Information Specimen Source: Nares Specimen Site: Left Specimen Nares - Left Performing Organization Address City/State/Zipcode Phone Number [facility] DEPARTMENT OF PATHOLOGY AND [address] [place] [address] GENOMIC MEDICINE [address] [address] Procalcitonin (05/01/2018 12:40 PM [employer] SUPERVISOR) Procalcitonin 0.65 (H) <=0.07 ng/mL [facility] Comment: INTERPRETIVE INFORMATION: Procalcitonin Effective November 11, 2017, this test is performed by the [employer] Procalcitonin assay. A correction has been applied to optimize cutoff's established for the [employer] PCT sensitive Kryptor assay. Procalcitonin > 2.00 ng/mL: Procalcitonin levels above 2.00 ng/mL on the first day of ICU admission represent a high risk for progression to severe sepsis and/or septic shock. Procalcitonin < 0.50 ng/mL: Procalcitonin levels below 0.50 ng/mL on the first day of ICU admission represent a low risk for progression to severe sepsis and/or septic shock. If the procalcitonin measurement is performed shortly after the systemic infection process has started (usually less than 6 hours), these values may still be low. As various non-infectious conditions are known to induce procalcitonin as well, procalcitonin levels between 0.5 ng/mL and 2.00 ng/mL should be reviewed carefully to take into account the specific clinical background and condition(s) of the individual patient. Performed at: [facility] [address] [facility] [address] Specimen Serum Performing Organization Address City/[facility]/Zipcode Phone Number [facility] [address] [place] [address] [facility] [address] [place] [address] Influenza antigen test, reflex negative to RPP (05/01/2018 12:40 PM [employer] SUPERVISOR) Influenza antigen Negative for Influenza A/B antigen. [facility] Comment: HOSPITAL Specimen Information Specimen Source: Nares Specimen Site: Left Specimen Nares - Left Performing Organization Address [facility] Phone Number [facility] DEPARTMENT OF PATHOLOGY AND [address] [place] [id number] [place] [address] Troponin (05/01/2018 12:40 PM [employer] SUPERVISOR)Only the most recent of7 resultswithin the time period is included. Troponin <0.300 0.000 - 0.300 ng/mL [facility] Comment: HOSPITAL 0.30 - 1.49 ng/mlMay indicate increased risk of acute coronary syndrome. >=1.5 ng/mlConsistent with acute myocardial infarction. The diagnostic value of a single normal or non-diagnostic result is questionable.Serial samples at 2-6 hour intervals are required to rule out acute myocardial injury. Specimen Plasma specimen Performing Organization Address [facility] Phone Number [facility] DEPARTMENT OF PATHOLOGY AND [id number] [place] [address] C-reactive protein (05/01/2018 12:40 PM M[employer] SUPERVISOR)Only the most recent of2 resultswithin the time period is included. CRP 1.21 (H) 0.00 - 0.50 mg/dL [facility] Specimen Plasma specimen Performing Organization Address [facility]/Zipcode Phone Number [facility] DEPARTMENT OF PATHOLOGY AND [address] [place] [address] [place] [phone] Lipase level (05/01/2018 12:40 PM M[employer] SUPERVISOR)Only the most recent of7 resultswithin the time period is included. Lipase 39 13 - 60 U/L [facility] Specimen Plasma specimen Performing Organization Address City/[facility] Phone Number [facility] DEPARTMENT OF PATHOLOGY AND [address] [place] [address] Creatine kinase, total (CPK) (05/01/2018 12:40 PM M[employer] SUPERVISOR)Only the most recent of3 resultswithin the time period is included. Creatine kinase 54 39 - 308 U/L [facility] Specimen Plasma specimen Performing Organization Address [facility] Phone Number [facility] DEPARTMENT PATHOLOGY AND [address] [place] [address] Hepatic function panel (05/01/2018 12:40 PM M[employer] SUPERVISOR)Only the most recent of4 resultswithin the time period is included. Albumin 4.1 3.5 - 5.0 g/dL [facility] Total bilirubin 0.6 0.0 - 1.2 mg/dL [facility] Bilirubin direct <0.1 0.0 - 0.3 mg/dL [facility] Alkaline phosphatase 121 40 - 129 U/L [facility] Protein 8.1 6.3 - 8.3 g/dL [facility] Comment: HOSPITAL [place] 4.6-7.0 g/dL 1 week 4.4-7.6 g/dL 7 months-1year5.1-7.3 g/dL 1-2 years5.6-7.5 g/dL >3 years6.0-8.0 g/dL 18-150 6.3-8.3 g/dL ALT 27 5 - 50 U/L [facility] AST 40 10 - 50 U/L [facility] Specimen Plasma specimen Performing Organization Address City/[facility] Phone Number [facility] DEPARTMENT OF PATHOLOGY AND [address] [place] [address] [place] [phone] [place] [address] [facility] ECG ED Preliminary Interpretation - Not an Order (05/01/2018 12:19 PM M[employer] SUPERVISOR)Only the most recent of6 resultswithin the time period is included. Narrative Performed At Christiano Resendez MD 05/01/20182:23 PM ECG ED Preliminary Interpretation - Not an Order Performed by: Christiano Resendez MD Authorized by: Christiano Resendez MD ECG reviewed by ED Physician in the absence of a classified advertising manager: yes Previous ECG: Previous ECG:Compared to current Similarity:No change Interpretation: Interpretation: normal Rate: ECG rate:68 ECG rate assessment: normal Rhythm: Rhythm: sinus rhythm Ectopy: Ectopy: none QRS: QRS axis:Left QRS intervals:Normal Conduction: Conduction: normal ST segments: ST segments:Normal T waves: T waves: normal Comments: Read at 12:18 pm ECG 12 lead (05/01/2018 12:18 PM [employer])Only the most recent of8 resultswithin the time period is included. Ventricular rate 68 [facility] Atrial rate 68 [facility] IA interval 128 [facility] QRSD interval 84 [facility] QT interval 382 [facility] QTC interval 406 [facility] P axis 1 68 [facility] QRS axis 1 -42 [facility] T wave axis 16 [facility] EKG impression Normal sinus rhythm-Left axis [facility] deviation-Abnormal ECG-In automated comparison with ECG of 15-JAN-2018 01:15,-No significant change was found- Narrative Performed At Performing Organization Address City/State/Zipcode Phone Number [facility] MUSE [address] [place] [address] XR Forearm 2 Vw Right (02/07/2018 2:37 AM CDT)Only the most recent of2 resultswithin the time period is included. Narrative Performed At XR FOREARM 2 VW RIGHT [facility] CLINICAL INDICATION:Fractureforearm COMPARISON:None. IMPRESSION: There is no acute fracture or dislocation. There are mild degenerative changes at the base of the thumb. Osseous mineralization is normal. [facility]-[id number] Procedure Note Interface, Radiology Results Incoming - 02/07/2018 2:45 AM CDT XR FOREARM 2 VW RIGHT CLINICAL INDICATION: Fracture forearm COMPARISON: None. IMPRESSION: There is no acute fracture or dislocation. There are mild degenerative changes at the base of the thumb. Osseous mineralization is normal. [facility]-[id number] Performing Organization Address [facility] Phone Number [facility] [address] [place] [address] XR Hand 3+ Vw Right (02/07/2018 2:37 AM CDT) Narrative Performed At XR HAND 3VW RIGHT [facility] CLINICAL INDICATION:Fracturehand COMPARISON:None. IMPRESSION: There is no acute fracture or dislocation. There are mild degenerative changes of the base of the thumb. Osseous mineralization is normal. [facility]-[id number] Procedure Note Interface, Radiology Results Incoming - 02/07/2018 2:42 AM CDT XR HAND 3 VW RIGHT CLINICAL INDICATION: Fracture hand COMPARISON: None. IMPRESSION: There is no acute fracture or dislocation. There are mild degenerative changes of the base of the thumb. Osseous mineralization is normal. [facility]-[id number] Performing Organization Address [facility] Phone Number [facility] [address] [place] [address] XR Ribs W Pa Chest Left (01/15/2018 2:19 AM CDT) Narrative Performed At Examination:XR RIBS W PA CHEST LEFT [facility] Clinical History: fall Comparison: None. Findings: Single frontal view of the chest and 3 views of the leftribs are obtained. On the chest film, the lungs are free of infiltrate. The heart size normal. No effusion is seen. On the rib films, no acute fracture or dislocation is seen. Posterior stimulator leads are noted. No pneumothorax is seen. IMPRESSION: 1. No acute abnormality identified in the chest or leftribs. [facility]-[id number] Procedure Note Interface, Radiology Results Incoming - 01/15/2018 2:25 AM CDT Examination: XR RIBS W PA CHEST LEFT Clinical History: fall Comparison: None. Findings: Single frontal view of the chest and 3 views of the left ribs are obtained. On the chest film, the lungs are free of infiltrate. The heart size normal. No effusion is seen. On the rib films, no acute fracture or dislocation is seen. Posterior stimulator leads are noted. No pneumothorax is seen. IMPRESSION: 1. No acute abnormality identified in the chest or left ribs. [facility]-[id number] Performing Organization Address [facility]/Zipcode Phone Number [facility] [address] [place] [address] Estimated GFR (01/15/2018 1:57 AM CDT)Only the most recent of11 resultswithin the time period is included. GFR Non Af Amer 72 mL/min/1.73 m2 [facility] DEPARTMENT OF PATHOLOGY AND GENOMIC MEDICINE GFR Af Amer 87 mL/min/1.73 m2 [facility] DEPARTMENT OF Comment: PATHOLOGY AND [facility] Chronic kidney disease: <60 mL/min/1.73m2 MEDICINE Kidney failure: <15 mL/min/1.73m2 The estimated GFR is calculated from the IDMS-traceable Modification of Diet in Renal Disease Equation. The accuracy of the calculation is poor when the creatinine is normal. Calculated values >90 mL/min/1.73m2 are not reported. This equation has not been validated in children (<18 years), women, the elderly (>70 years), or ethnic groups other than Caucasians and Americans. Specimen Plasma specimen Performing Organization Address [facility] Phone Number [facility] DEPARTMENT OF PATHOLOGY AND [address] [place] [address] [place] [address] [facility] Partial thromboplastin time, activated (01/15/2018 1:57 AM CDT)Only the most recent of5 resultswithin the time period is included. PTT 35.1 23.0 - 36.0 sec [facility] DEPARTMENT OF Comment: PATHOLOGY AND [facility] PTT therapeutic range for unfractionated heparin is MEDICINE 61.0-112.0 seconds which corresponds to Anti-Xa 0.3-0.7 U/ml. Specimen Blood Performing Organization Address [facility] Phone Number [facility] PATHOLOGY AND [address] [place] [address] [place] [address] [facility] Prothrombin time with INR (01/15/2018 1:57 AM CDT)Only the most recent of5 resultswithin the time period is included. Prothrombin time 13.6 12.0 - 15.0 sec [facility] DEPARTMENT OF PATHOLOGY AND GENOMIC MEDICINE INR 1.0 [facility] DEPARTMENT OF Comment: PATHOLOGY AND GENOMIC The International Normalized Ratio (INR) is a therapeutic MEDICINE monitoring tool for patients who are stable on oral anticoagulant therapy. An INR of 2.0-3.0 is suggested for deep vein thrombosis/pulmonary embolism. Specimen Blood Performing Organization Address City/State/Zipcode Phone Number [facility] DEPARTMENT OF PATHOLOGY AND [id number] [place] [address] [place] [address] [facility] MEDICINE CT Renal Stone Protocol (01/02/2018 11:04 PM CDT) Narrative Performed At EXAMINATION:CT RENAL STONE PROTOCOL [facility] CLINICAL HISTORY:RUQ abdominal pain around pain pump contrast allergy TECHNIQUE: Multiple axial images of the abdomen and pelvis were obtained without intravenous administration of iodinated contrast. Sagittal and coronal computerized reformatted images were also obtained. The lack of intravenous contrast reduces the sensitivity of detecting solid organ disease. CT imaging was performed with iterative reconstruction technique and/or automated exposure control to reduce radiation dose. COMPARISON:12/24/2017 IMPRESSION: Diffuse fatty infiltration of the liver. Patient is status post cholecystectomy. Spleen, pancreas and adrenal glands are normal. Punctate nonobstructive calculus is seen of superior pole of the left kidney. Right kidney is normal. No hydronephrosis or hydroureter. Bladder is unremarkable. No free intraperitoneal fluid or air. Atherosclerotic vascular calcifications are seen. Diverticulosis is seen without diverticulitis. Appendix is normal. No gastrointestinal tract obstruction. No acute osseous abnormalities. Mild degenerative change of the lower lumbar spine. Postoperative appearance and posterior fusion are seen of L3-L4. Hardware is seen in the left gluteal region, with leads entering the thoracic spine spinal canal. A right mid abdomen subcutaneous tissue device is seen with catheter entering the lumbar spinal canal and proceeding in the thoracic spinal canal. Previously seen gas around this device has resolved. No fluid collections are seen associated with the device or catheter. CONCLUSION: Diffuse fatty infiltration of the liver. Punctate nonobstructive calculus is seen of superior pole of the left kidney. Previously seen gas around right mid abdomen subcutaneous tissues device has resolved. No fluid collections are seen associated with the device or catheter. [facility]-[id number] Procedure Note Interface, Radiology Results Incoming - 01/02/2018 11:18 PM CDT EXAMINATION: CT RENAL STONE PROTOCOL CLINICAL HISTORY: RUQ abdominal pain around pain pump contrast allergy TECHNIQUE: Multiple axial images of the abdomen and pelvis were obtained without intravenous administration of iodinated contrast. Sagittal and coronal computerized reformatted images were also obtained. The lack of intravenous contrast reduces the sensitivity of detecting solid organ disease. CT imaging was performed with iterative reconstruction technique and/or automated exposure control to reduce radiation dose. COMPARISON: 12/24/2017 IMPRESSION: Diffuse fatty infiltration of the liver. Patient is status post cholecystectomy. Spleen, pancreas and adrenal glands are normal. Punctate nonobstructive calculus is seen of superior pole of the left kidney. Right kidney is normal. No hydronephrosis or hydroureter. Bladder is unremarkable. No free intraperitoneal fluid or air. Atherosclerotic vascular calcifications are seen. Diverticulosis is seen without diverticulitis. Appendix is normal. No gastrointestinal tract obstruction. No acute osseous abnormalities. Mild degenerative change of the lower lumbar spine. Postoperative appearance and posterior fusion are seen of L3-L4. Hardware is seen in the left gluteal region, with leads entering the thoracic spine spinal canal. A right mid abdomen subcutaneous tissue device is seen with catheter entering the lumbar spinal canal and proceeding in the thoracic spinal canal. Previously seen gas around this device has resolved. No fluid collections are seen associated with the device or catheter. CONCLUSION: Diffuse fatty infiltration of the liver. Punctate nonobstructive calculus is seen of superior pole of the left kidney. Previously seen gas around right mid abdomen subcutaneous tissues device has resolved. No fluid collections are seen associated with the device or catheter. [facility]-[id number] Performing Organization Address City/State/Zipcode Phone Number [facility] [address] [place] [address] Comprehensive metabolic panel (01/02/2018 10:40 PM CDT)Only the most recent of8 resultswithin the time period is included. Sodium 141 135 - 148 mEq/L [facility] DEPARTMENT OF PATHOLOGY AND GENOMIC MEDICINE Potassium 3.9 3.5 - 5.0 mEq/L [facility] DEPARTMENT OF PATHOLOGY AND GENOMIC MEDICINE Chloride 103 98 - 112 mEq/L [facility] DEPARTMENT OF PATHOLOGY AND GENOMIC MEDICINE CO2 26 24 - 31 mEq/L [facility] DEPARTMENT OF PATHOLOGY AND GENOMIC MEDICINE Anion gap 12@ANIO 7 - 15 mEq/L [facility] DEPARTMENT OF PATHOLOGY AND GENOMIC MEDICINE BUN 9 6 - 20 mg/dL [facility] DEPARTMENT OF PATHOLOGY AND GENOMIC MEDICINE Creatinine 1.2 0.7 - 1.2 mg/dL [facility] DEPARTMENT OF PATHOLOGY AND GENOMIC MEDICINE Glucose 203 (H) 65 - 99 mg/dL [facility] DEPARTMENT OF PATHOLOGY AND GENOMIC MEDICINE Calcium 8.6 8.3 - 10.2 mg/dL [facility] DEPARTMENT OF PATHOLOGY AND GENOMIC MEDICINE Protein 8.1 6.3 - 8.3 g/dL [facility] DEPARTMENT OF Comment: PATHOLOGY AND GENOMIC [place] 4.6-7.0 g/dL MEDICINE 1 week 4.4-7.6 g/dL 7 months-1year5.1-7.3 g/dL 1-2 years5.6-7.5 g/dL >3 years6.0-8.0 g/dL 18-150 6.3-8.3 g/dL Albumin 3.9 3.5 - 5.0 g/dL [facility] DEPARTMENT OF PATHOLOGY AND GENOMIC MEDICINE A/G ratio 0.9 0.7 - 3.8 [facility] DEPARTMENT OF PATHOLOGY AND GENOMIC MEDICINE Alkaline phosphatase 97 40 - 129 U/L [facility] DEPARTMENT OF PATHOLOGY AND GENOMIC MEDICINE AST 20 10 - 50 U/L [facility] DEPARTMENT OF PATHOLOGY AND GENOMIC MEDICINE ALT 11 5 - 50 U/L [facility] DEPARTMENT OF PATHOLOGY AND GENOMIC MEDICINE Total bilirubin 0.4 0.0 - 1.2 mg/dL [facility] DEPARTMENT OF PATHOLOGY AND GENOMIC MEDICINE Specimen Plasma specimen Performing Organization Address City/State/Zipcode Phone Number [facility] DEPARTMENT OF PATHOLOGY AND [address] [place] [address] [facility] CT Abdomen Pelvis Wo Contrast (12/24/2017 8:21 PM CDT)Only the most recent of4 resultswithin the time period is included. Narrative Performed At EXAMINATION: [facility] CT ABDOMEN PELVIS WO CONTRAST CLINICAL HISTORY: Abd painunspecified, abd pain s p pain pump placed to abd COMPARISON: December 20, 2017 TECHNIQUE: Contiguous 5 mm axial slices were performed from the hemidiaphragms to the iliac crests without IV contrast. No oral contrast was given for the procedure REQUEST BY PHYSICIAN. . Images were acquired on a multidetector CT scanner using helical scanning technique with 2-D reconstructions in the coronal and sagittal planes.The dose length product for the entire procedure is 814 mGy-cm. CT imaging was performed with iterative reconstruction technique and/or automated exposure control to reduce radiation dose. FINDINGS: 1. The lung parenchymal window settings demonstrate no abnormality in the visualized lung parenchymal bases . 2. The absence of intravenous iodinated contrast media precludes evaluation of solid organ pathology. No abnormality is demonstrated of the liver, kidneys, spleen, pancreas. 3. The absence of enteric contrast precludes evaluation of the small and large bowel as well as the stomach. No dilatation of the small or large bowel are identified. The appendix is visualized and is normal. 4. No intra-abdominal fluid collections, mesenteric masses, or retroperitoneal lymphadenopathy is seen. 5. The aorta is normal in caliber with no atheromatous plaque formation..No abnormality of the inferior vena cava is noted. The gallbladder is surgically absent. 6. The sagittal and coronal reconstructed images demonstrate no vertebral body height loss. A fusion has been performed at the L3-4 level. 7. Bone window settings demonstrate no gross acute bony abnormality. CT PELVIS: No pelvic fluid collections, masses, or lymphadenopathy is seen. No inguinal lymphadenopathy is identified. IMPRESSION: Unremarkable exam. [facility]-[id number] Procedure Note [facility], Radiology Results - 12/24/2017 8:44 PM CDT EXAMINATION: CT ABDOMEN PELVIS WO CONTRAST CLINICAL HISTORY: Abd pain unspecified, abd pain s p pain pump placed to abd COMPARISON: December 20, 2017 TECHNIQUE: Contiguous 5 mm axial slices were performed from the hemidiaphragms to the iliac crests without IV contrast. No oral contrast was given for the procedure REQUEST BY PHYSICIAN. . Images were acquired on a multidetector CT scanner using helical scanning technique with 2-D reconstructions in the coronal and sagittal planes.The dose length product for the entire procedure is 814 mGy-cm. CT imaging was performed with iterative reconstruction technique and/or automated exposure control to reduce radiation dose. FINDINGS: 1. The lung parenchymal window settings demonstrate no abnormality in the visualized lung parenchymal bases . 2. The absence of intravenous iodinated contrast media precludes evaluation of solid organ pathology. No abnormality is demonstrated of the liver, kidneys, spleen, pancreas. 3. The absence of enteric contrast precludes evaluation of the small and large bowel as well as the stomach. No dilatation of the small or large bowel are identified. The appendix is visualized and is normal. 4. No intra-abdominal fluid collections, mesenteric masses, or retroperitoneal lymphadenopathy is seen. 5. The aorta is normal in caliber with no atheromatous plaque formation..No abnormality of the inferior vena cava is noted. The gallbladder is surgically absent. 6. The sagittal and coronal reconstructed images demonstrate no vertebral body height loss. A fusion has been performed at the L3-4 level. 7. Bone window settings demonstrate no gross acute bony abnormality. CT PELVIS: No pelvic fluid collections, masses, or lymphadenopathy is seen. No inguinal lymphadenopathy is identified. IMPRESSION: Unremarkable exam. [facility]-[id number] Performing Organization Address City/[facility]/Zipcode Phone Number [facility] [address] [place] [address] B natriuretic peptide (12/24/2017 8:08 PM CDT) BNP 17 0 - 100 pg/mL [facility] DEPARTMENT OF PATHOLOGY AND GENOMIC MEDICINE Specimen Blood Performing Organization Address City/[facility] Phone Number [facility] DEPARTMENT OF PATHOLOGY AND [id number] [place] [address] [place] [address] GENOMIC MEDICINE Phosphorus level (12/21/2017 3:56 AM CDT) Phosphorus 3.1 2.4 - 4.5 mg/dL [facility] DEPARTMENT OF PATHOLOGY AND GENOMIC MEDICINE Specimen Plasma specimen Performing Organization Address [facility] Phone Number [facility] DEPARTMENT OF PATHOLOGY AND [address] [place] [address] [facility] Magnesium level (12/21/2017 3:56 AM CDT)Only the most recent of2 resultswithin the time period is included. Magnesium 1.8 1.6 - 2.6 mg/dL [facility] DEPARTMENT OF PATHOLOGY AND GENOMIC MEDICINE Specimen Plasma specimen Performing Organization Address [facility] Phone Number [facility] DEPARTMENT OF PATHOLOGY AND [address] [place] [address] GENOMIC MEDICINE CRITICAL CARE (12/21/2017 1:05 AM CDT) Narrative Performed At Js Alegre MD 12/21/20173:10 AM Critical Care Performed by: JS ALEGRE Authorized by: JS ALEGRE Critical care provider statement: Critical care time (minutes):33 Critical care start time:12/20/2017 9:00 PM Critical care end time:12/20/2017 11:30 PM Critical care time was exclusive of:Separately billable procedures and treating other patients and teaching time Critical care was necessary to treat or prevent imminent or life-threatening deterioration of the following conditions:Sepsis (emergent transfer for post op infection) Critical care was time spent personally by me on the following activities:Blood draw for specimens, development of treatment plan with patient or surrogate, discussions with consultants, discussions with primary provider, evaluation of patient's response to treatment, examination of patient, obtaining history from patient or surrogate, ordering and performing treatments and interventions, ordering and review of laboratory studies, ordering and review of radiographic studies, pulse oximetry, re-evaluation of patient's condition and review of old charts Jean-Pierre 'yes' if you are taking over critical care for this patient from another provider.: no Blood culture, aerobic & anaerobic (12/20/2017 9:25 PM CDT)Only the most recent of2 resultswithin the time period is included. Blood culture isolate No growth after 5 days of incubation. [facility] DEPARTMENT OF Comment: PATHOLOGY AND GENOMIC Specimen Information MEDICINE Specimen Source: Blood Specimen Site: Antecubital, left Specimen Blood - Antecubital, left Performing Organization Address City/[facility] Phone Number [facility] DEPARTMENT OF PATHOLOGY AND [address] [place] [address] GENOMIC [facility] Lactic acid level, SEPSIS - Now and repeat 2x every 3 hours (12/20/2017 9:20 PM CDT)Only the most recent of2 resultswithin the time period is included. Lactic acid 1.3 0.5 - 2.2 mmol/L [facility] DEPARTMENT OF PATHOLOGY AND GENOMIC MEDICINE Specimen Plasma specimen Performing Organization Address [facility] Phone Number [facility] DEPARTMENT OF PATHOLOGY AND [address] [place] [address] [employer] MEDICINE Sedimentation rate (12/20/2017 9:20 PM CDT) Sedimentation rate 38 (H) 0 - 10 mm/hr [facility] DEPARTMENT OF PATHOLOGY AND GENOMIC MEDICINE Specimen Blood Performing Organization Address [facility] Phone Number [facility] DEPARTMENT OF PATHOLOGY AND [address] [place] [address] [facility] MEDICINE OR [place] < 1 Hour (12/18/2017 12:00 PM CDT)Only the most recent of2 resultswithin the time period is included. Narrative Performed At IMPRESSION: C-arm fluoroscopy under one hour was provided in the OR for [facility] the referring physician. A radiologist was not present during the procedure. Refer to the Operative report issued by the performing provider for procedure details. [facility] OR 19 ROOM: 1 PROCEDURE: INSERTION PAIN PUMP START TIME: 1130 END TIME: 1200 FLUORO TIME: 38 SECS DOSAGE:41.57 mGy TECH: TS Procedure Note Interface, Radiology Results Incoming - 12/18/2017 1:36 PM CDT IMPRESSION: C-arm fluoroscopy under one hour was provided in the OR for the referring physician. A radiologist was not present during the procedure. Refer to the Operative report issued by the performing provider for procedure details. [facility] OR 19 ROOM: 1 PROCEDURE: INSERTION PAIN PUMP START TIME: 1130 END TIME: 1200 FLUORO TIME: 38 SECS DOSAGE:41.57 mGy TECH: TS Performing Organization Address [facility] Phone Number [facility] [address] [place] [address] ECG Pre/Post Op (11/20/2017 4:45 PM CDT) Ventricular rate 74 [facility] Atrial rate 74 [facility] IA interval 138 [facility] QRSD interval 86 [facility] QT interval 364 [facility] QTC interval 404 [facility] P axis 1 15 [facility] QRS axis 1 -34 [facility] T wave axis 8 [facility] MUSE EKG impression Normal sinus rhythm-Left axis [facility] MUSE deviation-Abnormal ECG-In automated comparison with ECG of 24-AUG-2017 22:48,-No significant change was found- Performing Organization Address [facility] Phone Number [facility] MUSE [address] [place] [address] Hemoglobin A1c (11/20/2017 4:34 PM CDT) Hemoglobin A1C 7.9 (H) 4.0 - 5.6 % [facility] DEPARTMENT OF PATHOLOGY Comment: AND GENOMIC MEDICINE HbA1c cutoffs for diagnosing diabetes: 4.0% - 5.6%=normal 5.7% - 6.4%=increased risk for diabetes (prediabetes) >=6.5%=diabetes Goals for glycemic control (ADA 2016) < 7.0%Target for non adults with diabetes. More or less stringent targets may be appropriate for individual patients. <7.5% Target for Children and adolescents with type 1 diabetes. Specimen Blood Performing Organization Address [facility] Phone Number [facility] DEPARTMENT OF PATHOLOGY AND [address] [place] [address] [employer] MEDICINE XR Shoulder 2+ Vw Left (10/29/2017 7:50 PM CDT) Narrative Performed At EXAMINATION:XR SHOULDER 2VW LEFT [facility] CLINICAL HISTORY:pain COMPARISON:None. IMPRESSION: No evidence of acute left shoulder fracture or dislocation. Soft tissues are unremarkable. [facility]-[id number] Procedure Note Interface, Radiology Results Incoming - 10/29/2017 8:18 PM CDT EXAMINATION: XR SHOULDER 2 VW LEFT CLINICAL HISTORY: pain COMPARISON: None. IMPRESSION: No evidence of acute left shoulder fracture or dislocation. Soft tissues are unremarkable. [facility] [facility]-[id number] Performing Organization Address [facility] Phone Number [facility] [address] [place] [address] XR Chest 2 Vw (10/29/2017 7:50 PM CDT)Only the most recent of2 resultswithin the time period is included. Narrative Performed At EXAMINATION: XR CHEST 2 VW [facility] CLINICAL HISTORY: SOBl shoulder pain r o ptx COMPARISON:08/24/2017 chest x-ray. IMPRESSION: The lungs are clear. No pleural effusion or pneumothorax. The cardiomediastinal silhouette is normal. No acute osseous abnormalities. [facility]-[id number] Procedure Note Interface, Radiology Results Incoming - 10/29/2017 8:18 PM CDT EXAMINATION: XR CHEST 2 VW CLINICAL HISTORY: SOB l shoulder pain r o ptx COMPARISON: 08/24/2017 chest x-ray. IMPRESSION: The lungs are clear. No pleural effusion or pneumothorax. The cardiomediastinal silhouette is normal. No acute osseous abnormalities. [facility]-[id number] Performing Organization Address [facility] Phone Number [facility] [address] [place] [address] CT Maxillofacial Wo Contrast (08/24/2017 10:32 PM CDT) Narrative Performed At EXAM: CT MAXILLOFACIAL WO CONTRAST [facility] CLINICAL HISTORY: dental painsinus pain TECHNIQUE: Axial noncontrast enhanced images through the maxillofacial bones were obtained with bone and soft tissue algorithms. Coronal and sagittal reconstructions were also performed. CT scans are performed using radiation dose reduction techniques (iterative reconstruction and/or automated exposure control). Technical factors are evaluated and adjusted to ensure appropriate moderation of exposure. Automated dose management technology is applied to adjust radiation exposure while achieving a diagnostic quality image. COMPARISON:CT head performed concurrently FINDINGS: No fracture of the maxillofacial bones is seen. Paranasal sinuses demonstrate scattered mild to moderate mucosal thickening. Orbits and skull base are intact. Multiple teeth are absent. Numerous dental caries are present. Small. Lucencies surrounding the left maxillary medial incisor is noted. Soft tissues are unremarkable. IMPRESSION: 1.Negative CT for acute maxillofacial fracture. 2.Multiple teeth are absent. Numerous dental caries are present. Small. Lucencies surrounding the left maxillary medial incisor is noted. [facility]-[id number] Procedure Note Hm Interface, Radiology Results Incoming - 08/24/2017 10:44 PM CDT EXAM: CT MAXILLOFACIAL WO CONTRAST CLINICAL HISTORY: dental pain sinus pain TECHNIQUE: Axial noncontrast enhanced images through the maxillofacial bones were obtained with bone and soft tissue algorithms. Coronal and sagittal reconstructions were also performed. CT scans are performed using radiation dose reduction techniques (iterative reconstruction and/or automated exposure control). Technical factors are evaluated and adjusted to ensure appropriate moderation of exposure. Automated dose management technology is applied to adjust radiation exposure while achieving a diagnostic quality image. COMPARISON: CT head performed concurrently FINDINGS: No fracture of the maxillofacial bones is seen. Paranasal sinuses demonstrate scattered mild to moderate mucosal thickening. Orbits and skull base are intact. Multiple teeth are absent. Numerous dental caries are present. Small. Lucencies surrounding the left maxillary medial incisor is noted. Soft tissues are unremarkable. IMPRESSION: 1. Negative CT for acute maxillofacial fracture. 2. Multiple teeth are absent. Numerous dental caries are present. Small. Lucencies surrounding the left maxillary medial incisor is noted. [facility]-[id number] Performing Organization Address City/State/Zipcode Phone Number [facility] [address] [place] [address] Influenza antigen (05/11/2017 6:30 PM [employer]OLD SHOP SUPERVISOR) Influenza antigen Negative for Influenza A/B antigen. [facility] DEPARTMENT OF Comment: PATHOLOGY AND GENOMIC Specimen Information MEDICINE Specimen Source: Nares Specimen Site: Right Specimen Nares - Right Performing Organization Address City/State/Zipcode Phone Number [facility] DEPARTMENT OF PATHOLOGY AND [address] [place] [address] GENOMIC MEDICINE XR Abdomen Acute Inc Chest (05/11/2017 6:20 PM [employer]OLD SHOP SUPERVISOR) Narrative Performed At Study:XR ABDOMEN ACUTE INC CHEST [facility] History: ABDOMINAL PAIN COMPARISON: Chest x-ray June 13, 2016 IMPRESSION: A single view of the chest. 4 views of the abdomen.There is no focal consolidation, pleural effusion or pneumothorax.No bowel distention or free air. Spinal simulator device has its leads at the level of the lower thoracic spine. Cardiac silhouette is normal.There are degenerative changes of the lumbar spine and bilateral hip joints. [id number] Procedure Note Hm Interface, Radiology Results Incoming - 05/11/2017 6:35 PM MOLD SHOP SUPERVISOR Study:XR ABDOMEN ACUTE INC CHEST History: ABDOMINAL PAIN COMPARISON: Chest x-ray June 13, 2016 IMPRESSION: A single view of the chest. 4 views of the abdomen. There is no focal consolidation, pleural effusion or pneumothorax. No bowel distention or free air. Spinal simulator device has its leads at the level of the lower thoracic spine. Cardiac silhouette is normal. There are degenerative changes of the lumbar spine and bilateral hip joints. [id number] Performing Organization Address City/State/Zipcode Phone Number JESS[facility] [address] [place] [address] after 05/08/2017 Insurance Payer Benefit Plan / Group Subscriber ID Type Phone Address [facility] MEDICARE [facility] DUAL COMPLETE [facility] xxxxxxxxx HMO Advance Directives Patient has advance care planning documents on file. For more information, please contact:Joshua Arciniega[address] [place] [address]
--- OUTSIDE RECORDS SUMMARY | 2018-05-09 18:24 | XMS REPORT | Summary of Care ---
:1970 Author Name ZHEN ZEPEDA M.D. Address Unavailable Unavailable , Care Team Providers Name Role Phone MYA Stearns, RIN Unavailable Unavailable ZHEN ZEPEDA M.D. Unavailable Unavailable MARIO AYALA MD Unavailable Unavailable Unavailable Unavailable Unavailable Functional Status Name Dates Details Functional status health issues are not documented Status: Name Dates Details Cognitive status health issues are not documented Status: Problems Name Dates Details Dermatitis (692.9, L30.9) Status: Active Sicca syndrome (710.2, M35.00) Status: Active Arthralgia of multiple sites (719.49, M25.50) Status: Active Need for hepatitis C screening test (V73.89, Z11.59) Status: Active Screening for endocrine, nutritional, metabolic and immunity disorder (V77.99, Z13.29) Status: Active Screening for skin condition (V82.0, Z13.89) Status: Active Low back pain (724.2, M54.5) Status: Active Medications Name Dates Details Gabapentin 300 MG Oral Capsule Refills: 0 Active MetFORMIN HCl - 500 MG Oral Tablet Refills: 0 Active Lyrica 25 MG Oral Capsule Refills: 0 Active Norvasc 5 MG Oral Tablet Refills: 0 Active Simvastatin TABS Refills: 0 Active Triamcinolone Acetonide CREA Refills: 0 Active Zofran TABS Refills: 0 Active Hydrocodone-Acetaminophen TABS Refills: 0 Active Meclizine HCl TABS Refills: 0 Active Cipro 500 MG Oral Tablet Refills: 0 Active PredniSONE 20 MG Oral Tablet TAPER Instructions - TAKE 3 PILLS, BY MOUTH, DAILY X 5 DAYSTHEN 2 PILLS DAILY X 5 DAYSTHEN 1 PILL DAILY X 5 DAYS, UNTIL COMPLETE Quantity: 30 Refills: 0 ZHEN ZEPEDA M.D. Start : 30-May-2017 Active PredniSONE 20 MG Oral Tablet Take 3 tablets PO QAM for 2 days, then 2 tablets PO QAM for 3 days, then take 1 tablet PO QAM for 3 days, then take 1/2 tab PO QAM daily Quantity: 16 Refills: 0 MYA Stearns RIN Start : 02-Mar-2014 Active Pilocarpine HCl - 5 MG Oral Tablet TAKE 1 TABLET 3 TIMES DAILY. Quantity: 90 Refills: 1 MYA Stearns RIN Start : 20-Feb-2014 Active Allergies and Adverse Reactions Name Dates Details Iodine SOLN (Allergy) Status: Active Past Medical History Name Dates Details History of Diabetes mellitus (250.00, E11.9) Status: Resolved History of essential hypertension (V12.59, Z86.79) Status: Resolved History of hypercholesterolemia (V12.29, Z86.39) Status: Resolved Procedures Procedure Dates Details CT Spine lumbar myelogram 80153 Date: 30-May-2017 Immunization Name Dates Details Immunizations not documented Social History Name Dates Details Unknown if ever smoked Vital Signs Date Test Result Details No Known Vitals to report Results Date Description Value Details [id number] [U] XRAY SPINE LUMBOSACRAL MIN 4 VWS 77050 XR SPINE LUMBOSACRAL MIN 4 VWS EXAM: XR SPINE LUMBOSACRAL MIN 4 VWS DATE: 05/30/2017 at 1400 hours. INDICATION: Lower back pain. COMPARISON: None available. TECHNIQUE: AP, lateral, coned lateral, LPO and RPO radiographs of the lumbar spine. FINDINGS:5 nonrib bearing, lumbar-type vertebral bodies are present.A presumed spinal cord stimulator battery pack project over the left hip. Its distal leads are excluded from the [id number].Moderate facet arthropathy is present throughout the mid to lower lumbar spine.There appears to be an intervening disc spacer at the L3-L4 level. IMPRESSION:1. No acute, radiographic abnormality of the lower lumbar spine.2. Advanced facet arthropathy throughout the mid to lower lumbar spine.3. Probable intervening disc spacer at the L3-L4 level. 05/30/2017 2:32 PM NATHALIA Hector Plan of Care Name Dates Details Planned Observations Planned Goals not documented Interventions Provided Medication ChangesPredniSONE 20 MG Oral Tablet - StartLabs/Procedures/ImagingCT Spine lumbar myelogram 75535; To Be Done: 30 May 2017[U] XRAY SPINE LUMBOSACRAL MIN 4 VWS 30773; Done: 30 May 2017 Instructions Name Dates Details Instructions not documented Encounters Appointment; ZHEN ZEPEDA M.D. On: 23-Apr-2017 9:15 Encounter Diagnosis: Problem not documented Appointment; ZHEN ZEPEDA M.D. On: 30-May-2017 13:00 Encounter Diagnosis: Problem not documented
--- OUTSIDE RECORDS SUMMARY | 2018-05-09 18:24 | XMS REPORT ---
:1970 [facility] Address [address] [place] [address] Care Team Providers Name Role Phone NONE Primary Care Provider Unavailable Payers Payer Name Policy Type Policy Number Effective Date Expiration Date Problems This patient has no known problems. Allergies, Adverse Reactions, Alerts Allergy Name Allergy Status Severity Reaction(s) Onset Inactive Treating Comments Type Date Date Clinician lorazepam DA Active MO 2018-02 00:00:0 0 lisinopril DA Active ID 2017-12 00:00:0 0 iodine DA Active ID 2017-12 00:00:0 0 aspirin DA Active ID 2017-12 00:00:0 0 ropinirole DA Active ID 2017-12 00:00:0 0 Medications This patient has no known medications. Encounters Start End Encounter Admission Attending Care Care Encounter Date/Time Date/Time Type Type Clinicians Facility Department ID 2017-07-31 2017-07-31 Emergency [facility] [id number] 19:16:00 19:16:00
--- OUTSIDE RECORDS SUMMARY | 2018-05-09 18:25 | XMS REPORT | Continuity of Care Document ---
:1970 Author Organization [facility] Address [address] [place] [address] Phone Unavailable Care Team Providers Name Role Phone OTHER, ENTER NAME IN NOTES Primary Care Physician Unavailable Insurance Providers Guarantor Matti Garibay Address [address] [place] [address] Email [email or web address] Payer [facility] [id number] Policy Number [id number] Subscriber's Name Matti Garibay Relationship Self / Same As Patient Group Number [id number] Group Name NA Payer Medicaid Policy Number [id number] Subscriber's Name Matti Garibay Relationship Self / Same As Patient Group Number NA Group Name NA Advance Directives Directive Response Recorded Date/Time Advance Directive on File No 04/03/18 7:19pm Name of Surrogate/Decision Maker NA 04/03/18 8:14pm Patient/Family Given Education Material R/T Y - KR...04/03/18 04/03/18 8: 15pm Directives? Chief Complaint and Reason for Visit Chief Complaint General Complaint Reason for Visit HTN (hypertension) Anxiety Problems Medical Problem Onset Date Status Epigastric discomfort Unknown Acute URI (upper respiratory infection) Unknown Acute URI (upper respiratory infection) Unknown Acute Past Problems Medical Problem Onset Date Status Anxiety Unknown Acute HTN (hypertension) Unknown Acute Medications Current Home Medications Medication Dose Units Route Directions Days Qty Instructions Start Date Albuterol Hfa * 1-2 Puff RESPIRATORY Rt-Every 6 (Proair Hfa 90 (INHALATION) Hours As Mcg/Act *) Aer Needed Amlodipine 1 Tab ORAL Daily Besylate (Amlodipine Besylate*) 5 Mg Tab Carbidopa/Levodo 0.5 Tab ORAL Bedtime pa * (Sinemet 25/100 Mg *) 1 Tab Tab Cetirizine Hcl 10 Mg ORAL Daily (Zyrtec *) 10 Mg Tab Esomeprazole Mag 40 Mg ORAL Daily * (Nexium 40 Mg *) 40 Mg Cap Esomeprazole Mag 40 Mg ORAL Daily * (Nexium 40 Mg *) 40 Mg Cap Hydrocodone-Acet 5 Mg ORAL As Needed aminophen (Co-Gesic 5/500 Mg) 1 Tab Tab Metformin Hcl Mg ORAL Daily (Glucophage *) 500 Mg Tab Montelukast 10 Mg ORAL Once Daily Sodium (Montelukast Sodium 10 Mg (Singulair) *) 10 Mg Tab Nebivolol * 5 Mg ORAL Daily (Bystolic *) 5 Mg Tab Nebivolol * 10 Mg ORAL Daily (Bystolic *) 10 Mg Tab Past Home Medications Medication Directions Ordered Status Amlodipine Besylate-Benazepril (Amlodipine Once Daily Discontinued Besy/Benazazepril 5MG/20MG *) 1 Cap Cap, 1 Cap Oral Loteprednol Etabonate (Alrex 0.2% Oph *) 0.2 % Twice A Day Discontinued Kristen, 1 Drop Ophthalmic Social History Social History Problem Response Recorded Date/Time Onset Date Status Hx Alcohol Use No 12/04/2012 11:05pm Not Applicable Not Applicable Hx Physical Abuse No 04/03/2018 7:19pm Not Applicable Not Applicable Smoking Status Start Date Stop Date Never smoker Hospital Discharge Instructions No hospital discharge instruction information available. Plan of Care Discharge Date 04/03/18 9:48pm Instructions/Education Provided Panic Attack Hypertension Forms Provided Prescription Opioid Use Portal Welcome Letter Prescriptions See Medication Section Referrals OTHER,ENTER NAME IN NOTES Additional Instructions/Education TAKE ALL MEDICATIONS PRESCRIBED AMLODIPINE 10MG TAB 1 BY MOUTH ONCE A DAY #14. FOLLOW UP WITH A PRIMARY CARE PROVIDER IN 2-3 DAYS RETURN TO THE ER IF YOUR SYMPTOMS WORSEN Functional Status No functional status information available. Allergies, Adverse Reactions, Alerts Allergen Type Severity Reaction Status Last Updated Aspirin ([id number]) Allergy Severe Active 12/05/12 Iodine ([id number]) Allergy Severe Active 03/06/11 Phenylbutazone Adverse Reaction Severe Active 03/06/11 Ropinirole ([id number]) Allergy Unknown Active 03/30/14 ASA Adverse Reaction Severe GI BLEED Active 12/04/12 Immunizations No immunization information available. Vital Signs Acute Vital Signs Vital Response Date/Time Blood Pressure 137/71 mm Hg 04/03/2018 9:59pm Pulse Pulse Rate (adult) 73 beats per minute (60 - 100) 04/03/2018 9:59pm Respiratory Rate 20 breaths per minute (10 - 24) 04/03/2018 9:59pm Results Laboratory Results Test Name Result Units Flags Reference Collection Result Comments Date/Time Date/Time White Blood Count 10.1 K/ul 4.0-12.3 04/03/2018 04/03/2018 7:39pm 8:10pm Red Blood Count 5.01 M/ul 3.80-5.80 04/03/2018 04/03/2018 7:39pm 8:10pm Hemoglobin 15.3 g/dl 11.67-17.2 04/03/2018 04/03/2018 2 7:39pm 8:10pm Hematocrit 44.6 % 35.0-51.0 04/03/2018 04/03/2018 7:39pm 8:10pm Mean Corpuscular 89.0 fl 78-96 04/03/2018 04/03/2018 Volume 7:39pm 8:10pm Mean Corpuscular 30.6 pg 26.8-33.4 04/03/2018 04/03/2018 Hemoglobin 7:39pm 8:10pm Mean Corpuscular 34.3 g/dl 32.3-36.7 04/03/2018 04/03/2018 Hemoglobin Concent 7:39pm 8:10pm Red Cell 13.1 % 11.6-15.4 04/03/2018 04/03/2018 Distribution Width 7:39pm 8:10pm Platelet Count 149 K/ul 115-328 04/03/2018 04/03/2018 7:39pm 8:10pm Mean Platelet 14.1 fl H 8.4-11.8 04/03/2018 04/03/2018 Volume 7:39pm 8:10pm Neutrophils (%) 62.4 % 44.7-82.4 04/03/2018 04/03/2018 (Auto) 7:39pm 8:10pm Lymphocytes (%) 26.9 % 10.0-50.0 04/03/2018 04/03/2018 (Auto) 7:39pm 8:10pm Monocytes (%) 6.0 % 3.9-13.4 04/03/2018 04/03/2018 (Auto) 7:39pm 8:10pm Eosinophils (%) 3.6 % 0.0-6.43 04/03/2018 04/03/2018 (Auto) 7:39pm 8:10pm Basophils (%) 1.2 % H 0.0-0.72 04/03/2018 04/03/2018 (Auto) 7:39pm 8:10pm Prothrombin Time 9.9 SECONDS L 10.3-12.3 04/03/2018 04/03/2018 7:39pm 8:13pm THERAPEUTIC LEVEL: 1.5 to 1.9 times normal range of PT Prothromb Time 0.94 04/03/2018 04/03/2018 International 7:39pm 8:13pm Recommended therapeutic range for patients receiving Ratio warfarin (coumadin) therapy: INR is 2.0 to 3.0 Recommended range for patients with mechanical prosthetic heart valves: INR is 2.5 to 3.5 Activated Partial 27.9 SECONDS 22.5-37.0 04/03/2018 04/03/2018 Thromboplast Time 7:39pm 8:13pm Random Glucose 158 mg/dL H 74-106 04/03/2018 04/03/2018 7:39pm 8:19pm Blood Urea 11 mg/dL 10-3004/03/2018 04/03/2018 Nitrogen 7:39pm 8:19pm Serum Osmolality 282 280-300 04/03/2018 04/03/2018 7:39pm 8:19pm Creatinine 0.7 mg/dL 0.70-1.20 04/03/2018 04/03/2018 7:39pm 8:19pm Glomerular > 60.00 04/03/2018 04/03/2018 GFR RESULTS ARE REPORTED IN mL/min/1.73m2. Filtration Rate 7:39pm 8:19pm Calc Normal GFR: >60mL/min Moderately decreased GFR: 30-59 mL/min Severely decreased GFR: 15-29 mL/min Kidney Failure (or Dialysis): <15 mL/min The calculated eGFR is not valid for patients younger than 18 years or older than 75 years. BUN/Creatinine 15.7 12-04/03/2018 04/03/2018 Ratio 7:39pm 8:19pm Sodium Level 140 mmol/L 135-145 04/03/2018 04/03/2018 7:39pm 8:19pm Potassium Level 4.0 mmol/L 3.5-5.2 04/03/2018 04/03/2018 7:39pm 8:19pm Chloride Level 106 mmol/L 98-108 04/03/2018 04/03/2018 7:39pm 8:19pm Carbon Dioxide 24 mmol/L 21-32 04/03/2018 04/03/2018 Level 7:39pm 8:19pm Anion Gap 14.0 mEq/L 12-04/03/2018 04/03/2018 7:39pm 8:19pm Calcium Level 8.8 mg/dL 8.6-10.0 04/03/2018 04/03/2018 7:39pm 8:19pm Magnesium Level 2.3 mg/dL 1.6-2.6 04/03/2018 04/03/2018 7:39pm 8:19pm Total Protein 7.3 g/dL 6.6-8.7 04/03/2018 04/03/2018 7:39pm 8:19pm Albumin 3.8 g/dL 3.5-5.2 04/03/2018 04/03/2018 7:39pm 8:19pm Globulin 3.5 gm/dL 04/03/2018 04/03/2018 7:39pm 8:19pm Albumin/Globulin 1.1 >1.0 04/03/2018 04/03/2018 Ratio 7:39pm 8:19pm Total Bilirubin 0.4 mg/dL 0.0-1.2 04/03/2018 04/03/2018 7:39pm 8:19pm Aspartate Amino 36 U/L 15-40 04/03/2018 04/03/2018 Transf (AST/SGOT) 7:39pm 8:19pm Alanine 32 U/L 0-41 04/03/2018 04/03/2018 Aminotransferase 7:39pm 8:19pm (ALT/SGPT) ES-Jnh-W-Type 51 pg/mL 0-125 04/03/2018 04/03/2018 Natriuretic 7:39pm 8:24pm Peptide Total Alkaline 125 U/L 40-130 04/03/2018 04/03/2018 Phosphatase 7:39pm 8:19pm Creatine Kinase 55 U/L 20-200 04/03/2018 04/03/2018 7:39pm 8:19pm Troponin I < 0.30 ng/mL 0.0-0.5 04/03/2018 04/03/2018 Published clinical studies have shown elevations of cTnI in 7:39pm 8:24pm patients with myocardial injury, as seen in unstable angina pectoris, cardiac contusions, and heart transplants. Elevations have also been seen in patients with rhabdomyolysis and polymyositis. Elevated troponin levels point to myocardial injury, but are not necessarily indicative of an ischemic mechanism. The term AL should be used when there is evidence of cardiac damage, as detected by marker proteins in a clinical setting consistent with myocardial ischemia. If the clinical circumstance suggests that an ischemic mechanism is unlikely, other causes of cardiac injury should be considered. For diagnostic purposes, the results should always be assessed in conjunction with the patient's medical history, clinical examination and other findings. Creatine Kinase MB < 1.0 ng/ml 0.0-3.6 04/03/2018 04/03/2018 7:39pm 8:24pm DIAGNOSTIC CITERIA: CKMB CKMB RELATIVE INDEX SUGGESTIVE OF NON-AMI < or=5 N/A RODRÍGUEZ ZONE (INCONCLUSIVE) > 5 < or=4 SUGGESTIVE OF AMI >5 > 4 Myoglobin < 25 ng/mL L 28-72 04/03/2018 04/03/2018 7:39pm 8:24pm Procedures Procedure Status Date Provider(s) Computed tomography of head without contrast Completed 04/03/18 RAE REYNOLDS NP X-ray of chest, single view Completed 04/03/18 RAE REYNOLDS DRUG COUNSELOR Encounters Encounter Location Arrival/Admit Date Discharge/Depart Date Attending Provider Departed Dee 04/03/18 7:12pm 04/03/18 9:48pm [facility] Recent Diagnosis
[2018-05-09] MEDS ORDERED: MORPHINE 4 MG/ML SYR ONE ×2 (19:04→21:45)
[2018-05-09] MEDS ORDERED: ONDANSETRON 4 MG/2 ML VIAL ONE (19:04)
[2018-05-09 19:28] LABS: Absolute Lymphocytes (CBC) 2.1 K/uL (0.7-4.9); Absolute Monocytes 0.7 K/uL (0.1-1.3); Absolute Neutrophil 6.8 K/uL (1.8-8.0); Eosinophils % 3.5 % (0-4.4); Hematocrit 46.8 % (39.6-49.0); Lymphocytes % 20.6 % (15.3-44.8); MPV 11.4 fL (7.6-11.3); Monocytes % 6.8 % (3.3-12.3); RBC Red Blood Cell Count 5.27 M/uL (4.33-5.43)
[2018-05-09 19:30] LABS: Protime INR 1.06
--- NOTE | 2018-05-09 19:34 | RAD REPORT ---
EXAM DESCRIPTION: CT - Head Brain Wo Cont - 05/09/2018 7:26 pm CLINICAL HISTORY: Headache COMPARISON: None. TECHNIQUE: Computed axial tomography of the head was obtained. IV contrast was not requested. All CT scans are performed using dose optimization technique as appropriate and may include automated exposure control or mA/KV adjustment according to patient size. FINDINGS: An intracranial bleed is not seen . The ventricles are normal in caliber. No extra-axial fluid collection is noted. Fluid within the sinuses/ mastoids is not seen. IMPRESSION: No acute intracranial abnormality is seen. If patient's symptoms persist MRI of the bra in would be recommended.
[2018-05-09 19:49] LABS: ALT/SGPT 36 U/L (12-78); AST/SGOT 46 U/L (15-37); Albumin 3.6 g/dL (3.4-5.0); Alkaline Phosphatase 106 U/L (45-117); BUN Blood Urea Nitrogen 11 mg/dL (7-18); Bicarbonate 29 mmol/L (21-32); Bilirubin Direct 0.2 mg/dL (0-0.2); Bilirubin Total 0.4 mg/dL (0.2-1.0); Glucose Level 106 mg/dL (74-106); Magnesium 2.4 mg/dL (1.8-2.4); NT PRO-BNP 10 pg/mL (<125); Potassium 4.4 mmol/L (3.5-5.1); Protein, Total 7.8 g/dL (6.4-8.2); Sodium Level 142 mmol/L (136-145); Troponin (Emerg Dept Use Only) < 0.02 ng/mL (0.0-0.045)
--- NOTE | 2018-05-09 20:18 | RAD REPORT ---
EXAM DESCRIPTION: Barney Single View05/09/2018 7:51 pm CLINICAL HISTORY: Chest pain COMPARISON: 2014 FINDINGS: The lungs appear clear of acute infiltrate. The heart is borderline enlarged IMPRESSION: No acute abnormalities displayed
--- NOTE | 2018-05-09 21:42 | EDPHYS ---
Physician Documentation [facility] Name: Matti Juarez Age: 47 yrs Sex: Male : 1970 Arrival Date: 05/09/2018 Time: 18:27 Bed 18 Private MD: ED Physician Reyes Llanes HPI: 05/09 18:50 This 47 yrs old Male presents to ER via EMS with complaints of Chest Pain. [facility] 18:50 The patient or guardian reports chest pain that is located primarily in the substernal [facility] area. Onset: acutely, 3 hour(s) ago. The pain does not radiate. The chest pain is described as a pressure, sharp. Duration: The patient or guardian reports multiple episodes, approximately 1 episodes since symptom onset, that wax and wane. This is a 47 year old male that presents to the ED with substernal chest pain beginning approx 3 hours ago. Patient states having 2 episodes. The patient describes the pain now as a dull ache which does not radiate. Patient was recently discharged from [facility] due to weakness. 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 . Historical: - Allergies: 18:37 Aspirin; em 18:37 SHELLFISH; em 18:37 Iodinated Contrast Media - IV Dye (cardiac arrest); em 18:37 Requip; em 18:37 atorvastatin; em - Home Meds: 18:37 Lyrica Oral [Active]; metformin 1,000 mg Oral tab 1 tab 2 times per day [Active]; em promethazine 25 mg Oral tab 1 tab every 6 hours [Active]; rosuvastatin 10 mg oral tab 1 tab once daily [Active]; sertraline 50 mg oral tab 1 tab once daily [Active]; trazodone 50 mg Oral tab [Active]; - PMHx: 18:37 cardiac arrest; Hypertension; Diabetes - NIDDM; em - PSHx: 18:37 back fusion; em - Immunization history:: Adult Immunizations up to date. - Social history:: Smoking status: Patient/guardian denies using tobacco. - Ebola Screening: : Patient negative for fever greater than or equal to 101.5 degrees Fahrenheit, and additional compatible Ebola Virus Disease symptoms Patient denies exposure to infectious person Patient denies travel to an Ebola-affected area in the 21 days before illness onset No symptoms or risks identified at this time. ROS: 18:50 Constitutional: Negative for fever, chills, and weight loss. jmm 18:50 Respiratory: Negative for shortness of breath, cough, wheezing, and pleuritic chest pain, Abdomen/GI: Negative for abdominal pain, nausea, vomiting, diarrhea, and constipation, MS/Extremity: Negative for injury and deformity, Skin: Negative for injury, rash, and discoloration, Neuro: Negative for headache, weakness, numbness, tingling, and seizure. 18:50 Cardiovascular: Positive for chest pain. 18:50 All other systems are negative. Exam: 18:50 Head/Face: atraumatic. Eyes: EOMI, no conjunctival erythema appreciated ENT: Moist [facility] Mucus Membranes Neck: Trachea midline, Supple 18:50 Cardiovascular: Regular rate and rhythm. No edema appreciated Respiratory: Normal respirations, no respiratory distress appreciated 18:50 Constitutional: The patient appears in no acute distress, alert, awake. 18:50 Chest/axilla: Palpation: tenderness, that is moderate. 18:50 Abdomen/GI: Inspection: abdomen appears normal, Bowel sounds: normal, Palpation: soft, in all quadrants. 18:50 Back: ROM is normal. 18:50 Musculoskeletal/extremity: ROM: intact in all extremities. 18:50 Skin: Appearance: Color: normal in color. 18:50 Neuro: Orientation: is normal, Mentation: is normal, Memory: is normal. 18:50 Psych: Behavior/mood is pleasant, cooperative. Vital Signs: 18:37 BP 116 / 72; Pulse 67; Resp 14; Temp 98.2(O); Pulse Ox 99% on R/A; Weight 110.68 kg; em Height 5 ft. 6 in. (167.64 cm); Pain 8/10; 20:24 BP 130 / 94; Pulse 64; Resp 18; Pulse Ox 97% on R/A; aa1 21:30 BP 140 / 87; Pulse 77; Resp 18; Pulse Ox 96% on R/A; aa1 18:37 Body Mass Index 39.38 (110.68 kg, 167.64 cm) em MDM: 18:37 Patient medically screened. glenn 21:40 The patient was not given aspirin in the Emergency Department. Data reviewed: vital [facility] signs, nurses notes, lab test result(s), EKG, radiologic studies. ED course: i discussed the patient with Dr. Davison whom accepted admission. . 05/09 18:47 Order name: Basic Metabolic Panel; Complete Time: 20:20 [facility] 05/09 18:47 Order name: CBC with Diff; Complete Time: 19:42 [facility] 05/09 18:47 Order name: LFT's; Complete Time: 20:20 [facility] 05/09 18:47 Order name: Magnesium; Complete Time: 20:20 [facility] 05/09 18:47 Order name: NT PRO-BNP; Complete Time: 20:20 [facility] 05/09 18:47 Order name: PT-INR; Complete Time: 19:42 [facility] 05/09 18:47 Order name: Troponin (emerg Dept Use Only); Complete Time: 20:20 [facility] 05/09 18:47 Order name: XRAY Chest (1 view); Complete Time: 20:20 [facility] 05/09 18:47 Order name: CT Head Brain wo Cont; Complete Time: 19:42 [facility] 05/09 18:47 Order name: EKG; Complete Time: 18:48 [facility] 05/09 18:47 Order name: Cardiac monitoring; Complete Time: 19:21 [facility] 05/09 18:47 Order name: EKG - Nurse/Tech; Complete Time: 19:21 [facility] 05/09 18:47 Order name: IV Saline Lock; Complete Time: 19:21 [facility] 05/09 18:47 Order name: Labs collected and sent; Complete Time: 19:21 [facility] 05/09 18:47 Order name: O2 Per Protocol; Complete Time: 19:21 [facility] 05/09 18:47 Order name: O2 Sat Monitoring; Complete Time: 19:21 [facility] Administered Medications: 19:17 Drug: Zofran 4 mg Route: IVP; Site: right antecubital; ss 19:19 Drug: morphine 2 mg Route: IVP; Site: right antecubital; ss 21:40 Drug: Tylenol 650 mg Route: PO; jb4 21:42 Drug: Nitroglycerin 0.4 mg Route: Sublingual; jb4 21:43 Drug: morphine 2 mg Route: IVP; Site: right antecubital; jb4 Disposition: 05/09/18 21:41 Hospitalization ordered by Aurora Davison for Observation. Preliminary diagnosis is Chest pain, unspecified. - Bed requested for Telemetry/MedSurg (observation). - Status is Observation. aa1 - Condition is Stable. - Problem is new. - Symptoms have improved. UTI on Admission? No Addendum: 05/13/2018 11:09 Co-signature as Attending Physician, Reyes Llanes MD I agree with the assessment and c franks plan of care. Signatures: Dispatcher [employer] EDMS Nicole Rayo RN RN Katiana Worthy RN RN aa1 Reyes Llanes MD MD cha Mickail, Joel, PA PA [facility] Piyush De Anda, SAP BOBJ DEVELOPER SAP BOBJ DEVELOPER em Nasra Nair RN RN ss Oracio Hardy RN RN jb4 Corrections: (The following items were deleted from the chart) 05/09 21:58 21:41 Hospitalization Ordered by Aurora Davison MD for Observation. Preliminary diagnosis is Chest pain, unspecified. Bed requested for Telemetry/MedSurg (observation). Status is Observation. Condition is Stable. Problem is new. Symptoms have improved. UTI on Admission? No. [facility] 22:46 21:58 05/09/2018 21:41 Hospitalization Ordered by Aurora Davison MD for Observation. aa1 Preliminary diagnosis is Chest pain, unspecified. Bed requested for Telemetry/MedSurg (observation). Status is Observation. Condition is Stable. Problem is new. Symptoms have improved. UTI on Admission? No.
--- NOTE | 2018-05-09 21:42 | ER ---
Nurse's Notes [facility] Name: Matti Juarez Age: 47 yrs Sex: Male : 1970 Arrival Date: 05/09/2018 Time: 18:27 Bed 18 Private MD: Diagnosis: Chest pain, unspecified Presentation: 05/09 18:28 Presenting complaint: EMS states: called out for substernal chest pain that started a em few hours ago, also reports nausea, pt denies vomiting, pt has hx of cardiac arrest about 6 months ago while getting gallbladder removed, pt was given IV iodine during the procedure. Transition of care: patient was not received from another setting of care. Onset of symptoms was May 09, 2018. Risk Assessment: Do you want to hurt yourself or someone else? Patient reports no desire to harm self or others. Initial Sepsis Screen: Does the patient meet any 2 criteria? No. Patient's initial sepsis screen is negative. Does the patient have a suspected source of infection? No. Patient's initial sepsis screen is negative. Care prior to arrival: None. 18:28 Method Of Arrival: EMS: [facility] em 18:39 Acuity: JELENA 3 ph Triage Assessment: 18:37 General: Appears in no apparent distress. comfortable, Behavior is calm, cooperative. em Pain: Complains of pain in anterior aspect of left upper chest and mid-sternal area Pain does not radiate. Pain currently is 8 out of 10 on a pain scale. Quality of pain is described as pressure. Cardiovascular: Reports chest pain, nausea, shortness of breath, Patient's skin is warm and dry. Historical: - Allergies: 18:37 Aspirin; em 18:37 SHELLFISH; em 18:37 Iodinated Contrast Media - IV Dye (cardiac arrest); em 18:37 Requip; em 18:37 atorvastatin; em - Home Meds: 18:37 Lyrica Oral [Active]; metformin 1,000 mg Oral tab 1 tab 2 times per day [Active]; em promethazine 25 mg Oral tab 1 tab every 6 hours [Active]; rosuvastatin 10 mg oral tab 1 tab once daily [Active]; sertraline 50 mg oral tab 1 tab once daily [Active]; trazodone 50 mg Oral tab [Active]; - PMHx: 18:37 cardiac arrest; Hypertension; Diabetes - NIDDM; em - PSHx: 18:37 back fusion; em - Immunization history:: Adult Immunizations up to date. - Social history:: Smoking status: Patient/guardian denies using tobacco. - Ebola Screening: : Patient negative for fever greater than or equal to 101.5 degrees Fahrenheit, and additional compatible Ebola Virus Disease symptoms Patient denies exposure to infectious person Patient denies travel to an Ebola-affected area in the 21 days before illness onset No symptoms or risks identified at this time. Screenin:38 Abuse screen: Denies threats or abuse. Nutritional screening: No deficits noted. em Tuberculosis screening: No symptoms or risk factors identified. Fall Risk None identified. Assessment: 18:39 General: Appears in no apparent distress. comfortable, Behavior is calm, cooperative. em Pain: Complains of pain in mid-sternal area and anterior aspect of left upper chest Pain currently is 8 out of 10 on a pain scale. Quality of pain is described as pressure, sharp, Pain began 3 hours ago. Pain: Pain does not radiate. Neuro: Level of Consciousness is awake, alert, obeys commands, Oriented to person, place, time, situation, Moves all extremities. Speech is slurred. Cardiovascular: Reports chest pain, nausea, Patient's skin is warm and dry. Rhythm is sinus rhythm. Respiratory: Airway is patent Respiratory effort is even, unlabored, Respiratory pattern is regular, symmetrical. GI: Abdomen is obese, Reports nausea. : No signs and/or symptoms were reported regarding the genitourinary system. Derm: Skin is intact, is healthy with good turgor, Skin is pink, warm \T\ dry. Musculoskeletal: Range of motion: intact in all extremities. 18:45 General: The previous assessment is accurate, call light remains within reach. ss 19:15 Reassessment: Patient appears in no apparent distress at this time. EMS IV infiltrated, em IV D/C'd, placed new IV 20 RAC. 20:24 Reassessment: Patient appears in no apparent distress at this time. Patient and/or aa1 family updated on plan of care and expected duration. Pain level reassessed. Patient is alert, oriented x 3, equal unlabored respirations, skin warm/dry/pink. Awaiting provider reassessment. Pt reports he still has a headache and nausea. 22:04 Reassessment: Patient appears in no apparent distress at this time. Patient and/or aa1 family updated on plan of care and expected duration. Pain level reassessed. Patient is alert, oriented x 3, equal unlabored respirations, skin warm/dry/pink. Pt to be admitted and bed assignment received however admission orders have not yet been entered by admitting provider. 22:32 Reassessment: Report given to Judy on 2nd floor. aa1 Vital Signs: 18:37 BP 116 / 72; Pulse 67; Resp 14; Temp 98.2(O); Pulse Ox 99% on R/A; Weight 110.68 kg; em Height 5 ft. 6 in. (167.64 cm); Pain 8/10; 20:24 BP 130 / 94; Pulse 64; Resp 18; Pulse Ox 97% on R/A; aa1 21:30 BP 140 / 87; Pulse 77; Resp 18; Pulse Ox 96% on R/A; aa1 18:37 Body Mass Index 39.38 (110.68 kg, 167.64 cm) em ED Course: 18:27 Patient arrived in ED. em 18:33 Antolin Welsh PA is PHCP. [facility] 18:33 Reyes Llanes MD is Attending Physician. jmm 18:37 Arm band placed on. em 18:39 Triage completed. ph 18:39 Maintain EMS IV. Dressing intact. Good blood return noted. Site clean \T\ dry. Gauge \T\ em site: 20 LAC. 18:39 Patient maintains SpO2 saturation greater than 95% on room air. em 18:46 Patient has correct armband on for positive identification. Placed in gown. Bed in low mh5 position. Call light in reach. Side rails up X2. Warm blanket given. scientologist on. Pulse ox on. NIBP on. 18:46 EKG done, by ED staff, reviewed by Reyes Llanes MD. mh5 18:49 Piyush De Anda LVN is Primary Nurse. em 19:13 Note: Nurse Staff wanted to get IV before CT scan. nj 19:15 Initial lab(s) drawn, by me, sent to lab. Inserted saline lock: 20 gauge in right em antecubital area, using aseptic technique. Blood collected. 19:26 CT Head Brain wo Cont In Process Unspecified. EDMS 19:51 XRAY Chest (1 view) In Process Unspecified. EDMS 21:41 Divinski, Ianir, MD is Hospitalizing Provider. m 22:32 No provider procedures requiring assistance completed. Patient admitted, IV remains in aa1 place. Administered Medications: 19:17 Drug: Zofran 4 mg Route: IVP; Site: right antecubital; ss 19:19 Drug: morphine 2 mg Route: IVP; Site: right antecubital; ss 21:40 Drug: Tylenol 650 mg Route: PO; jb4 21:42 Drug: Nitroglycerin 0.4 mg Route: Sublingual; jb4 21:43 Drug: morphine 2 mg Route: IVP; Site: right antecubital; jb4 Outcome: 21:41 Decision to Hospitalize by Provider. m 22:45 Admitted to Tele accompanied by tech, family with patient, via wheelchair, room 214, aa1 with chart, Report called to Judy 22:45 Condition: stable 22:45 Instructed on the need for admit, Demonstrated understanding of instructions. 22:46 Patient left the ED. aa1 Signatures: Dispatcher [employer] EDKatiana Thompson, RN RN aa1 Antolin Welsh PA PA jmm Piyush De Anda, LEASE OUT MAN LEASE OUT MAN Nasra Foster RN RN ss Hall, Patricia, RN RN ph Bryson, James, RN RN 4 Mauro Sun Maria [facility] Corrections: (The following items were deleted from the chart) 19:26 19:19 Patient did not have IV access during this emergency room visit. Pressure em dressing applied, 5
[2018-05-09] MEDS ORDERED: ACETAMINOPHEN 325 MG TABLET ONE (21:44)
[2018-05-09] MEDS ORDERED: NITROGLYCERIN 0.4 MG/TAB SL ONE (21:45)
--- NOTE | 2018-05-09 22:35 | P.HP ---
Certification for Inpatient Patient admitted to: Observation With expected LOS: <2 Midnights Practitioner: I am a practitioner with admitting privileges, knowledge of patient current condition, hospital course, and medical plan of care. Services: Services provided to patient in accordance with Admission requirements found in Title 42 Section 412.3 of the Code of Federal Regulations Patient History Date of Service: 05/09/18 Reason for admission: chest pain History of Present Illness: Mr Juarez is a 47 years old male with history of HTN, CVA, chronic pain syndrome s/p a fentanyl pump, DM II, s/p cardiac arrest during a cholecystectomy , who came to ER complaining of chest pain and headache. The chest pain started about 2 hours prior arrival, pressure like, substernal, associated with nausea, no radiated. He denied SOB or palpitations. Movements make it worse. Nitro SL did not relived the pain. He is also complaining of headache, started at the same time than chest pain. CT head shows no acute abnormalities. No obvious focal neurologic deficit. EKG SR 62 bpm, no ST abnormalities, poor R progression on anterior leads, left axis deviation. Initial trop I is negative. Allergies aspirin Allergy (Verified 01/01/14 15:53) Itching iodine Allergy (Verified 01/01/14 16:23) Anaphylaxis ropinirole HCl [From Requip] Allergy (Verified 01/01/14 16:23) Anaphylaxis Iodine-Iodine Containing Allergy (Uncoded 04/26/14 23:27) Unknown Home medications list reviewed: Yes Home Medications: Esomeprazole Mag Trihydrate [Nexium] 40 mg PO DAILY 01/01/14 Metformin HCl [Glucophage*] 500 mg PO DAILY WITH BREAKFAST 01/01/14 Mometasone/Formoterol [Dulera 100 Mcg/5 Mcg Inhaler] 2 puff IH PRN PRN 01/01/14 Mucinex 10 mg PO DAILY 01/01/14 Nebivolol HCl [Bystolic*] 10 mg PO DAILY 01/01/14 Hydrocodone 10/APAP 325 [[place] 10/325*] 1 tab PO Q6H PRN #40 tab 01/04/14 Cyclobenzaprine [Flexeril*] 10 mg PO TIDP PRN #30 tab 01/06/14 Gabapentin [Neurontin*] 300 mg PO BID #90 cap 01/06/14 LORazepam [Ativan] 0.5 mg PO TID PRN #30 tab 01/06/14 Promethazine Tab [Phenergan -Tab] 25 mg PO Q6HP PRN #30 tab 01/06/14 predniSONE [Prednisone*] 60 mg PO DAILY #30 tab 01/06/14 - Past Medical/Surgical History Diabetic: Yes -: 2001 staph? via pt -: RLS -: NIDDM -: CVA -: HTN -: Pneumoia -: lupus -: disc degeneration -: asthma -: intestinal polyps -: hyperlipidemia -: 27 h/o back surgery 2001 last 2006 -: galbladder removed 2009 -: heart cath 2013 -: spinal cord stimulator - Family History Family History: Reviewed- Non-Contributory - Social History Smoking Status: Former smoker Alcohol use: No CD- Drugs: No Caffeine use: Yes Place of Residence: Home Review of Systems 10-point ROS is otherwise unremarkable Physical Examination - Physical Exam General: Alert, In no apparent distress HEENT: Atraumatic, PERRLA, Mucous membr. moist/pink, EOMI, Sclerae nonicteric Neck: Supple, 2+ carotid pulse no bruit, No LAD, Without JVD or thyroid abnormality Respiratory: Clear to auscultation bilaterally, Normal air movement Cardiovascular: Regular rate/rhythm, Normal S1 S2 Gastrointestinal: Normal bowel sounds, No tenderness Musculoskeletal: No tenderness Integumentary: No rashes Neurological: Normal speech, Normal strength at 5/5 x4 extr, Normal tone, Normal affect Lymphatics: No axilla or inguinal lymphadenopathy - Studies Laboratory Data (last 24 hrs) 05/09/18 19:15: PT 12.5, INR 1.06 05/09/18 19:15: WBC 10.0, Hgb 15.8, Hct 46.8, Plt Count 126 L 05/09/18 19:15: Sodium 142, Potassium 4.4, BUN 11, Creatinine 0.84, Glucose 106 , Magnesium 2.4, Total Bilirubin 0.4, AST 46 H, ALT 36, Alkaline Phosphatase 106 Assessment and Plan - Problems (Diagnosis) (1) Headache Current Visit: Yes Status: Acute Qualifiers: Headache type: unspecified Headache chronicity pattern: acute headache Intractability: not intractable Qualified Code(s): R51 - Headache (2) Obesity Current Visit: Yes Status: Acute Qualifiers: Obesity type: unspecified obesity type Obesity classification: unspecified obesity classification Serious obesity comorbidity presence: unspecified whether serious comorbidity present Qualified Code(s): E66.9 - Obesity, unspecified (3) Diabetes mellitus Current Visit: Yes Status: Acute Qualifiers: Diabetes mellitus type: type 2 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 Initial trop I negative, EKG without acute changes. Will continue with serial cardiac enzymes and EKG. Consult cardiology team. Headache: unremarkable CT head. Will order pain medication and evaluate progress. - Advance Directives Does patient have a Living Will: No Does patient have a Durable POA for Healthcare: No - Code Status/Comfort Care Code Status Assessed: Yes Code Status: Full Code
[2018-05-09] MEDS ORDERED: ACETAMINOPHEN 500 MG TAB PO PRN (22:40)
[2018-05-09 23:08] VITALS: BMI 39.4
[2018-05-10 00:26] LABS: Urine Appearance CLEAR; Urine Bilirubin NEGATIVE (NEG); Urine Blood NEGATIVE (NEG); Urine Color YELLOW; Urine Glucose 3+ (NEG); Urine Protein NEGATIVE (NEG); Urine Specific Gravity >=1.030 (1.005-1.030); Urine Urobilinogen 0.2 mg/dL (0.2-1.0); Urine pH 5.5 (5.0-7.0)
[2018-05-10 00:28] LABS: Urine Microscopic Reflex NO UMIC
[2018-05-10] MEDS: TRAMADOL HCL 50 MG TAB PO PRN ×2 (00:40→10:52)
[2018-05-10] MEDS: ONDANSETRON 4 MG/2 ML VIAL IV PRN ×2 (00:42→06:10)
[2018-05-10 06:56] LABS: Absolute Monocytes 0.7 K/uL (0.1-1.3); Absolute Neutrophil 5.5 K/uL (1.8-8.0); Basophils % 1.1 % (0-1.3); Eosinophils % 4.2 % (0-4.4); Hematocrit 45.1 % (39.6-49.0); Lymphocytes % 30.8 % (15.3-44.8); MPV 11.5 fL (7.6-11.3); Monocytes % 7.3 % (3.3-12.3)
[2018-05-10 07:08] LABS: BUN Blood Urea Nitrogen 12 mg/dL (7-18); Bicarbonate 28 mmol/L (21-32); Glucose Level 108 mg/dL (74-106); HDL Cholesterol 23 mg/dL (40-60); LDL Cholesterol, Calculated 49 (<130); Sodium Level 143 mmol/L (136-145); Troponin I < 0.02 ng/mL (0.0-0.045)
[2018-05-10] MEDS: INSULIN -REGULAR HUMAN 50 UNIT/0.5 ML ML SQ SCH ×3 (07:30→16:30)
--- NOTE | 2018-05-10 08:30 | EKG ---
Test Date: 2018-05-09 Test Time: 18:32:39 Card Tape Converter Operator: CASEY MEASUREMENT RESULTS: Intervals: Rate: 62 KS: 150 QRSD: 96 QT: 390 QTc: 395 [place]: P: 21 KS: 150 QRS: -46 T: 7 INTERPRETIVE STATEMENTS: Normal sinus rhythm Left axis deviation Abnormal ECG Compared to ECG 07/05/2014 23:58:59 no significant change from previous ECG Electronically Signed On 05-10-18 08:29:18 WINDOW REPAIRER by Sebastian Sung
[2018-05-10] MEDS ORDERED: AMLODIPINE 5 MG TAB PO SCH (09:00)
[2018-05-10] MEDS: PREGABALIN 50 MG CAP PO SCH ×2 (10:25→14:44)
[2018-05-10 10:28] VITALS: BP 107/81
[2018-05-10 11:01] VITALS: TEMP 97.5
--- NOTE | 2018-05-10 11:41 | CON ---
Chief Complaint: Chest pain. History Of Present Illness: Mr. Juarez is visiting his daughter. He normally lives in [place]. 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 Within the past year and a half, he has had a cardiac cath that did not reveal any CAD. The pain he had was in the central part of his chest, felt like pressure. It la sted for several hours. When he took nitroglycerin, it improved slightly, did not go away, went away , then came back while he was sleeping. He sat up and that seemed to help it. The patient has numer s hospital admissions for chest pain. Two cardiac caths have been done. He has underlying diabete s, obesity, dyslipidemia, and history of TIAs. Outpatient Medications: Amlodipine, Lyrica, metformin, promethazine, rosuvastatin, sertraline, trazo done, and Jardiance. Allergies: HE REPORTS DRUG INTOLERANCE TO ASPIRIN, IODINE, ROPINIROLE, AND HE TOLD ME THAT HE TAKES PLAVIX, ALTHOUGH THAT IS NOT ON THE LIST OF MEDICINES HE TAKES, THAT HE GAVE TO THE NURSES. Social History: He uses no tobacco. Physical Examination: General: He is alert, oriented, pleasant, not in distress, 5 feet 6 inches, 244 pounds, obese, orien carey. Lungs: Clear. Carotids: No bruit. Heart: Normal. Abdomen: Soft. Extremities: Normal. No cyanosis, clubbing, or edema. Laboratory Data: His electrocardiogram shows sinus rhythm, leftward axis, otherwise it is normal. Impression And Plan: Mr. Juarez is not having an acute coronary syndrome. We should get him back o n his Plavix. I see that he has been started on Protonix since being in the hospital. I think that is a good idea. If he could sleep overnight without having chest pain or taking Protonix, I believe he could be discharged home since his last chest pain was just 5 hours ago. We probably should not l et him go even though his enzymes are normal. If he does not have any chest pain overnight, he shoul d be discharged with a prescription for Protonix to take as an outpatient. Thank you very much for your kind referral of Mr. Juarez. I will follow him with you. MIRELLA Voice ID: [id number] Report ID: [id number]
--- NOTE | 2018-05-10 13:40 | P.PN ---
Subjective Date of Service: 05/10/18 Primary Care Provider: Dr. Molina([facility]); Pain management-Dr. Gauthier( [place], [place]) Chief Complaint: chest pain Subjective: Improving (Chest pain improved.) Physical Examination - Vital Signs Temperature: 97.5 F Blood Pressure: 107/81 Pulse: 70 Respirations: 18 Pulse Ox (%): 95 - Physical Exam General: Alert, Oriented x3, Cooperative HEENT: Atraumatic Neck: Supple Respiratory: Clear to auscultation bilaterally, Normal air movement Cardiovascular: Normal pulses, Regular rate/rhythm Gastrointestinal: Normal bowel sounds, Soft and benign, Non-distended, No tenderness, No masses, No rebound, No guarding Musculoskeletal: No erythema, No tenderness, No warmth Integumentary: No tenderness/swelling, No erythema, No warmth, No cyanosis Neurological: Normal speech, Normal strength at 5/5 x4 extr, Normal tone, Normal affect - Studies Laboratory Data (last 24 hrs) 05/09/18 19:15: PT 12.5, INR 1.06 05/09/18 19:15: WBC 10.0, Hgb 15.8, Hct 46.8, Plt Count 126 L 05/09/18 19:15: Sodium 142, Potassium 4.4, BUN 11, Creatinine 0.84, Glucose 106 , Magnesium 2.4, Total Bilirubin 0.4, AST 46 H, ALT 36, Alkaline Phosphatase 106 Medications List Reviewed: Yes Assessment & Plan Discharge Plan: Home Plan to discharge in: 24 Hours Physician Review Additional Text: Impression: Chest pain, atypical with history of CAD Hypertension Diabetes mellitus type 2 Diabetic neuropathy History of TIA Hyperlipidemia GERD Chronic pain with history of pain pump Depression Plan: Chest pain, atypical with history of CAD: Cardiac enzymes unremarkable. Chest pain likely atypical. Cardiology has evaluated patient. Cardiology recommends to monitor overnight. Cardiology agrees with adding Protonix for possible underlying GERD. Patient may require GI evaluation as an outpatient. If stable discharge tomorrow. Encourage ambulation. Restart Plavix. Patient has had multiple cardiac evaluations in the past. Patient is visiting in the area. He gets most of his care at [facility] (formerly [facility]) and pain management in [facility]. Hypertension: Continue with blood pressure medication. Will monitor and adjust appropriately. Diabetes mellitus type 2: Will check A1c. Will continue sliding scale. Diabetic neuropathy: Restart home medication. Will provide medication for pain. Hyperlipidemia: Will restart home medication. History of TIA: Continue with Plavix. GERD: Suspect GERD. Patient started on Protonix. Patient may required GI evaluation as an outpatient. Chronic pain with history of pain pump: Will provide medication for pain. Patient has pain pump in place. Patient seen by pain management in [facility]. Depression: Continue with medication. Time Spent Managing Pts Care (In Minutes): 55
[2018-05-10 14:33] LABS: Thyroid Stimulating Hormone 1.75 uIU/mL (0.360-3.740)
[2018-05-10 15:53] VITALS: O2SAT 100
--- NOTE | 2018-05-10 16:32 | P.DS ---
Admission Date: 05/09/18 Discharge Date: 05/10/18 Primary Care Provider: Dr. Molina([facility]); Pain management-Dr. Gauthier( [place], [place]) Disposition: ROUTINE DISCHARGE Discharge Condition: GOOD Reason for Admission: chest pain Consultations: Cardiology-Dr. Sung Procedures: CT head: Unremarkable CXR: unremarkable Medical Problem List: Atypical with history of CAD Hypertension Diabetes mellitus type 2 Diabetic neuropathy History of TIA Hyperlipidemia GERD Chronic pain with history of pain pump Depression Brief History of Present Illness: 47 yo HM presented to the ER with chest pain. He was admitted for observation. Hospital Course: Patient presented with chest pain. Cardiac enzymes were normal. No EKG changes were noted. Cardiology evaluated the patient. He has had multiple cardiac evaluations and heart catheterizations. No need for further cardiac workup at this time. Chest pain is atypical and likely GERD related. Will recommend that he continue with Protonix 40 mg daily. He may need to see GI as an outpatient to further address. He is visiting in the area. Recommendation is for the patient to follow up with his [facility]ter at [facility] to further assess. He may continue with Plavix 75 mg daily. He has HTN. He will continue with his medication at discharge. He has DM. He will continue with his medication at discharge. Recommendation is for the patient to maintain BS less than 140 fasting and less than 200 after meals. Patient has DM Neuropathy. He may continue with his medication. He has chronic pain and see Pain management in [place], [place]. He will continue to follow up with his specialist. He currently has a pain pump. He has Depression. He will continue with his medication. He has Hyperlipidemia. He will continue with his home medication. Vital Signs/Physical Exam: Temp Pulse Resp BP Pulse Ox 97.5 F 70 18 107/81 95 05/10/18 13:40 05/10/18 13:40 05/10/18 13:40 05/10/18 13:40 05/10/18 13:40 General: Alert, In no apparent distress, Oriented x3, Cooperative HEENT: Atraumatic Neck: Supple Respiratory: Clear to auscultation bilaterally, Normal air movement Cardiovascular: Normal pulses, Regular rate/rhythm Gastrointestinal: Normal bowel sounds, Soft and benign, Non-distended, No tenderness, No masses Musculoskeletal: No erythema, No tenderness, No warmth Integumentary: No erythema, No warmth, No cyanosis Neurological: Normal speech, Normal strength at 5/5 x4 extr, Normal tone, Normal affect Laboratory Data at Discharge: WBC 9.7 K/uL (4.3-10.9) 05/10/18 06:33 Hgb 15.3 g/dL (13.6-17.9) 05/10/18 06:33 Hct 45.1 % (39.6-49.0) 05/10/18 06:33 Plt Count 145 K/uL (152-406) L 05/10/18 06:33 PT 12.5 SECONDS (9.5-12.5) 05/09/18 19:15 INR 1.06 05/09/18 19:15 Sodium 143 mmol/L (136-145) 05/10/18 06:33 Potassium 4.0 mmol/L (3.5-5.1) 05/10/18 06:33 BUN 12 mg/dL (7-18) 05/10/18 06:33 Creatinine 0.98 mg/dL (0.55-1.3) 05/10/18 06:33 Glucose 108 mg/dL (74-106) H 05/10/18 06:33 Magnesium 2.4 mg/dL (1.8-2.4) 05/09/18 19:15 Total Bilirubin 0.4 mg/dL (0.2-1.0) 05/09/18 19:15 AST 46 U/L (15-37) H 05/09/18 19:15 ALT 36 U/L (12-78) 05/09/18 19:15 Alkaline Phosphatase 106 U/L (45-117) 05/09/18 19:15 Troponin I < 0.02 ng/mL (0.0-0.045) 05/10/18 13:51 Triglycerides Cancelled 05/10/18 06:40 Cholesterol Cancelled 05/10/18 06:40 HDL Cholesterol Cancelled 05/10/18 06:40 Cholesterol/HDL Ratio Cancelled 05/10/18 06:40 Home Medications: Amlodipine [Norvasc*] 5 mg PO DAILY 05/09/18 Empagliflozin [Jardiance] 10 mg PO DAILY 05/09/18 Metformin ER [Glucophage ER*] 1,000 mg PO BID 12/28/18 Pregabalin [Lyrica*] 200 mg PO TID 05/09/18 Promethazine HCl 25 mg pe PO Q6HP PRN 05/09/18 Rosuvastatin [Crestor*] 10 mg PO BEDTIME 05/09/18 Sertraline [Zoloft*] 50 mg PO BEDTIME 05/09/18 Trazodone [Desyrel*] 50 mg PO BEDTIME 05/09/18 Clopidogrel Bisulfate [Plavix*] 75 mg PO DAILY tablet 05/10/18 Pantoprazole [Protonix Tab*] 40 mg PO DAILYAC #30 tab 05/10/18 New Medications: Pantoprazole [Protonix Tab*] 40 mg PO DAILYAC #30 tab Patient Discharge Instructions: 1. Patient will need to follow up with his PCP in one week to follow up this hospitalization. 2. Patient presented with chest pain. Cardiac enzymes were normal. No EKG changes were noted. Cardiology evaluated the patient. He has had multiple cardiac evaluations and heart catheterizations. No need for further cardiac workup at this time. Chest pain is atypical and likely GERD related. Will recommend that he continue with Protonix 40 mg daily. He may need to see GI as an outpatient to further address. He is visiting in the area. Recommendation is for the patient to follow up with his [facility]ter at [facility] to further assess. He may continue with Plavix 75 mg daily. 3. He has HTN. He will continue with his medication at discharge. 4. He has DM. He will continue with his medication at discharge. Recommendation is for the patient to maintain BS less than 140 fasting and less than 200 after meals. 5. Patient has DM Neuropathy. He may continue with his medication. 6. He has chronic pain and see Pain management in [place], [place]. He will continue to follow up with his specialist. He currently has a pain pump. 7. He has Depression. He will continue with his medication. 8. He has Hyperlipidemia. He will continue with his medication. Diet: AHA Activity: Fall precautions Time spent managing pt's care (in minutes): 55
[2018-05-10] MEDS ORDERED: ENOXAPARIN 40 MG/0.4 ML SQ SCH (17:00)
[2018-05-10] MEDS ORDERED: SERTRALINE HCL 50 MG TAB PO SCH (21:00)
[2018-05-10] MEDS ORDERED: TRAZODONE 50 MG TABLET PO SCH (21:00)
[2018-05-10] MEDS ORDERED: ROSUVASTATIN 10 MG TAB PO SCH (21:00)
[2018-05-11] MEDS ORDERED: PANTOPRAZOLE 40MG TABLET PO SCH (06:30)
[2018-05-11] MEDS ORDERED: CLOPIDOGREL 75 MG TABLET PO SCH (09:00)
== END 2018-05-10 17:46 | disposition home or self-care (01) ==
LOC: ER 18:20 → ERHOLD 22:20 → 2ND 22:32
PROVIDERS: ADMIT Internal Medicine; ATTEND Internal Medicine
DX: R07.89 Other chest pain (principal); I25.10 Atherosclerotic heart disease of native coronary artery without angina pectoris; I10 Essential (primary) hypertension; E11.40 Type 2 diabetes mellitus with diabetic neuropathy, unspecified; E78.5 Hyperlipidemia, unspecified; K21.9 Gastro-esophageal reflux disease without esophagitis; F32.9 Major depressive disorder, single episode, unspecified; G89.29 Other chronic pain; Z86.73 Personal history of transient ischemic attack (TIA), and cerebral infarction without residual deficits
CPT/HCPCS: 36415; 70450; 71045; 80048 ×2; 80061; 80076; 81003; 82962 ×2; 83036; 83735; 83880; 84439; 84443; 84484 ×4; 85025 ×2; 85610; 93005; 96374; 96375; 99285; G0378 ×2; J1650; J2405 ×3

== ENCOUNTER 2018-05-27 00:06 | Observation (INO) | payer OTHER ==
--- OUTSIDE RECORDS SUMMARY | 2018-05-27 00:10 | XMS REPORT | Clinical Summary ---
:1970 Author Organization [facility] Address [address] [place] [address] Care Team Providers Name Role Phone New ZacariasOVlad Primary Care Provider Allergies Active Allergy Reactions Severity Noted Date Comments Aspirin GI Bleeding High 10/11/2016 GI bleeding Atorvastatin Other (See Comments) Low 12/09/2017 Cough Iodine Hives 05/19/2007 IV iodine and iodine -Cardiac arrest Other 10/11/2016 Anesthesia: during Gallbladder and back surgery pt went into cardiac arrest. ([facility] Ropinirole 10/11/2016 Hypotensive for 2 days. [...] PO QD 3 12/23/19 Discontinued 7 18 clindamycin (CLEOCIN) TK ONE C PO Q 0 11/21/19 Discontinued 300 MG capsule 8 H 7 18 MARIANA CHILDERSOSTAR 300 20 UNITS QHS 4 05/01/20 Discontinued [...] Description 05/01/2018 - Hospital Encounter General Internal Christiano Resendez Generalized weakness 05/05/2018 Shruti Walls MD (Primary Dx) Jude Lawson MD 02/07/2018 Emergency Emergency Medicine Saadantejacklyn, Fall, initial encounter (Primary Dx); Anthony Francis MD Pain of right forearm; Hand pain, right 01/15/2018 Emergency Emergency Medicine Brittaniani, Fall, initial encounter (Primary Dx); Santiago Estrada, Contusion of rib on left side, initial encounter; Contusion of right upper extremity, initial encounter; Hematoma of scalp, initial encounter; Secondary hypertension 01/02/2018 - Emergency Emergency Medicine Kennedy Rodgers Abdominal pain, 01/03/2018 Mohammad, DO unspecified abdominal location (Primary Dx) 12/24/2017 Emergency Emergency Medicine Gal Dela Cruz Abdominal pain, MD Eufemia unspecified abdominal location (Primary Dx) 12/22/2017 Documentation Pain Medicine Eliezer Gauthier MD 12/21/2017 - Hospital Encounter General Surgery Gayla Olguin Cellulitis of 12/22/2017 MD Zamzam abdominal wall Eduardo Farrell, (Primary Dx) DO 12/21/2017 Orders Only Pain Medicine Eliezer Gauthier MD 12/21/2017 Documentation Pain Medicine Eliezer Gauthier MD 12/20/2017 - Emergency Emergency Medicine Js Alegre, Postoperative 12/21/2017 infection, initial encounter (Primary Dx) 12/20/2017 Intake Access N/A 12/18/2017 Anesthesia Event Orthopedic Surgery Maryan Gudino, DATA ENTRY EMAIL PROCESSOR 12/18/2017 Surgery Orthopedic Surgery Abrahan, INSERTION PAIN PUMP MD Eliezer FENTANYL 12/18/2017 Hospital Encounter Orthopedic Surgery Eliezer Gauthier MD 11/20/2017 Pre-Admit Testing Pre-Admission Abrahan Preop testing Appointment Testing MD Eliezer (Primary Dx) 11/20/2017 Emergency Emergency Medicine Kennedy Rodgers Acute right-sided Mohammad, DO low back pain, with sciatica presence unspecified (Primary Dx) 10/29/2017 Emergency Emergency Medicine [place] Meulen, Shoulder strain, He Cortes, left, initial MD encounter (Primary Dx) 09/11/2017 Anesthesia Event Orthopedic Surgery Jacindasage, Deng Robert, FISHER PURSE SEINE 09/11/2017 Surgery Orthopedic Surgery Abrahan, INTRATHECAL, FOR [...] with MD Hair bilateral sciatica (Primary Dx) after 05/26/2017 Family History Medical History Relation Name Comments [...] Taken Blood Pressure 109/57 05/05/2018 10:44 AM RAIL TRANSPORTATION TABELER Pulse 64 05/05/2018 10:44 AM RAIL TRANSPORTATION TABELER Temperature 36.8 C (98.2 F) 05/05/2018 10:44 AM RAIL TRANSPORTATION TABELER Respiratory Rate 15 05/05/2018 10:44 AM RAIL TRANSPORTATION TABELER Oxygen Saturation 97% 05/05/2018 10:44 AM RAIL TRANSPORTATION TABELER Inhaled Oxygen Concentration - - Weight 111 kg (244 lb) 05/01/2018 12:14 PM RAIL TRANSPORTATION TABELER Height 167.6 cm (5' 6") 05/01/2018 12:14 PM RAIL TRANSPORTATION TABELER Body Mass Index 39.38 05/01/2018 12:14 PM RAIL TRANSPORTATION TABELER Plan of Treatment Health Maintenance Due Date Last Done Comments INFLUENZA VACCINE 12/11/2017 Implants Implanted Type Area Pre Press Operator Device Shelf Model / Identifier Expiration Serial Date / Lot Surescan Sensor Ipg - [id number] - [id number] [id number] IMPLANT N/A: N/A [employer] -NEUROLO 08/07/2017 [id number] / Implanted: Qty: 1 on 10/17/2016 by Eliezer Gauthier MD DEVICES GICAL [id number] / N/A Patient Neuropsychiatrist - [id number] [id number] IMPLANT N/A: N/A [employer]-NEUROLO [id number] / Implanted: Qty: 1 on 10/17/2016 by Eliezer Gauthier MD DEVICES GICAL / Charging System, W Sensor, Spinal Stimulation, Ea - [id number] [id number] IMPLANT N/A : N/A [employer]-NEUROLO [id number] / Implanted: Qty: 1 on 10/17/2016 by Eliezer Gauthier MD DEVICES GICAL / Kit Pckt Adptr For Scs 2x4in - [id number] Neurosurgical N/A: N/A [employer] 01/23/2020 [id number] / Implanted: Qty: 1 on 10/17/2016 by Eliezer Gauthier MD Implants NEUROMODULATION / [id number] Pump Infsn Synchromed Ii W/ Fltr Sut Loop Prgrmbl Rsvr 20ml - [id number] - [id number] Neurosurgical Right: [employer] 05/26/2019 [id number] / Implanted: Qty: 1 on 12/18/2017 by Eliezer Gauthier MD Implants Abdomen, NEUROMODULATION [id number] / Lower [id number] Quadrant Passer Cath W/ Rmvbl Hndl And Ppe Obtrtr 38cm Strl - [id number] Neurosurgical N/A: N/A [employer] [facility] - 10/10/2022 [id number] / Implanted: Qty: 1 on 12/18/2017 by Eliezer Gauthier MD Implants NEUROLOGICAL / [id number] Procedures Procedure Name Priority Date/Time Associated Comments Diagnosis ESTIMATED GFR Routine 05/04/2018 5:05 Results for this AM RAIL TRANSPORTATION TABELER procedure are in the results section. BASIC METABOLIC PANEL Routine 05/04/2018 5:05 Results for this AM RAIL TRANSPORTATION TABELER procedure are in the results section. HC COMPLETE BLD COUNT Routine 05/04/2018 5:05 Results for this W/AUTO DIFF AM RAIL TRANSPORTATION TABELER procedure are in the results section. POC GLUCOSE Routine 05/02/2018 5:46 Results for this PM RAIL TRANSPORTATION TABELER procedure are in the results section. POC GLUCOSE Routine 05/01/2018 5:01 Results for this PM RAIL TRANSPORTATION TABELER procedure are in the results section. URINALYSIS SCREEN AND Routine 05/01/2018 3:33 Results for this MICROSCOPY, WITH REFLEX PM RAIL TRANSPORTATION TABELER procedure are in TO CULTURE the results section. URINE CULTURE Routine 05/01/2018 3:33 Results for this PM RAIL TRANSPORTATION TABELER procedure are in the results section. CT HEAD WO CONTRAST STAT 05/01/2018 2:36 Results for this PM RAIL TRANSPORTATION TABELER procedure are in the results section. VENOUS BLOOD GAS STAT 05/01/2018 1:51 Results for this PM RAIL TRANSPORTATION TABELER procedure are in the results section. XR CHEST 1 VW PORTABLE STAT 05/01/2018 1:10 Results for this PM RAIL TRANSPORTATION TABELER procedure are in the results section. PROCALCITONIN Routine 05/01/2018 12:40 Results for this PM RAIL TRANSPORTATION TABELER procedure are in the results section. C-REACTIVE PROTEIN Routine 05/01/2018 12:40 Results for this PM RAIL TRANSPORTATION TABELER procedure are in the results section. ESTIMATED GFR STAT 05/01/2018 12:40 Results for this PM RAIL TRANSPORTATION TABELER procedure are in the results section. TROPONIN STAT 05/01/2018 12:40 Results for this PM RAIL TRANSPORTATION TABELER procedure are in the results section. CREATINE KINASE, TOTAL STAT 05/01/2018 12:40 Results for this (CPK) PM RAIL TRANSPORTATION TABELER procedure are in the results section. HC COMPLETE BLD COUNT STAT 05/01/2018 12:40 Results for this W/AUTO DIFF PM RAIL TRANSPORTATION TABELER procedure are in the results section. LIPASE LEVEL STAT 05/01/2018 12:40 Results for this PM RAIL TRANSPORTATION TABELER procedure are in the results section. HEPATIC FUNCTION PANEL STAT 05/01/2018 12:40 Results for this PM RAIL TRANSPORTATION TABELER procedure are in the results section. BASIC METABOLIC PANEL STAT 05/01/2018 12:40 Results for this PM RAIL TRANSPORTATION TABELER procedure are in the results section. RESPIRATORY PATHOGEN Routine 05/01/2018 12:40 Results for this PANEL PM RAIL TRANSPORTATION TABELER procedure are in the results section. INFLUENZA ANTIGEN TEST, Routine 05/01/2018 12:40 Results for this REFLEX NEGATIVE TO RPP PM RAIL TRANSPORTATION TABELER procedure are in the results section. ECG ED PRELIMINARY Routine 05/01/2018 12:19 Results for this INTERPRETATION PM RAIL TRANSPORTATION TABELER procedure are in the results section. ECG 12-LEAD STAT 05/01/2018 12:18 Results for this PM RAIL TRANSPORTATION TABELER procedure are in the results section. POC GLUCOSE Routine 05/01/2018 12:13 Results for this PM RAIL TRANSPORTATION TABELER procedure are in the results section. XR [...] CDT procedure are in the results section. FL CRITICAL CARE, E/M Routine 12/21/2017 1:05 Results [...] CDT procedure are in the results section. FL AN ELECTIVE Routine 12/18/2017 11:42 ENDOTRACHEAL AIRWAY AM CDT Procedure Note - Omega Jo CRNA - 12/18/2017 11:42 AM CDT Airway Date/Time: 12/18/2017 11:23 AM Performed by: OMEGA JO Authorized by: REGINA LATHAM Location: OR Urgency: Elective Difficult Airway: No Resident/FISHER PURSE SEINE/AA: OMEGA JO Performed by: resident/FISHER PURSE SEINE/AA Preoxygenated with 100% O2: Yes C-spine Precautions [...] significant psychosocial dysfunction Special Needs LARGE C-ARM [employer] POC GLUCOSE Routine 12/18/2017 9:36 AM Results [...] section. ZZESTIMATED GFR Routine 06/12/2017 3:25 AM RAIL TRANSPORTATION TABELER COMPREHENSIVE METABOLIC Routine 06/12/2017 3:25 AM RAIL TRANSPORTATION TABELER Results for this PANEL procedure are in the results section. URINALYSIS SCREEN AND STAT 06/12/2017 2:50 AM RAIL TRANSPORTATION TABELER Results for this MICROSCOPY, WITH REFLEX TO procedure are in the CULTURE results section. URINE CULTURE STAT 06/12/2017 2:50 AM RAIL TRANSPORTATION TABELER HC COMPLETE BLD COUNT W/AUTO STAT 06/12/2017 2:45 AM RAIL TRANSPORTATION TABELER Results for this DIFF procedure are in the results section. after 05/26/2017 Results Estimated GFR (05/04/2018 5:05 AM RAIL TRANSPORTATION TABELER)Only the most recent of2 resultswithin the time period is included. Estimated GFR 89 mL/min/1.73 m2 [facility] CatergoryUnitsInterpretation G1 >=90 Normal or high G2 60-89Mildly decreased K0j09-32Tsauoy to moderately decreased R2f52-24Oohosnzahd to severely decreased G4 15-29Severely decreased G5 <15Kidney failure The eGFR was calculated using the Chronic Kidney Disease Epidemiology Collaboration (CKD-EPI) equation. Interpretation is based on recommendations of the National Kidney Foundation-Kidney Disease Outcomes Quality Initiative (NKF-KDOQI) published in 2014. Specimen Plasma specimen Performing Organization Address City/State/Zipcode Phone Number [facility] DEPARTMENT OF PATHOLOGY AND [address] [place] [address] GENOMIC MEDICINE [facility] [address] [place], [place] [id number] [place] [address] CBC with platelet and differential (05/04/2018 5:05 AM RAIL TRANSPORTATION TABELER)Only the most recent of11 resultswithin the time period is included. WBC 9.20 4.50 - 11.00 k/uL [facility] RBC 4.68 4.40 - 6.00 m/uL [facility] HGB 13.8 (L) 14.0 - 18.0 g/dL [facility] HCT 42.6 41.0 - 51.0 % [facility] MCV 91.0 82.0 - 100.0 fL [facility] MCH 29.5 27.0 - 34.0 pg [facility] MCHC 32.4 31.0 - 37.0 g/dL [facility] RDW - SD 45.8 37.0 - 55.0 fL [facility] MPV 12.6 8.8 - 13.2 fL [facility] Platelet count 134 (L) 150 - 400 k/uL [facility] Nucleated RBC 0.00 /100 WBC [facility] Neutrophils 54.7 39.0 - 69.0 % [facility] Lymphocytes 33.8 25.0 - 45.0 % [facility] Monocytes 6.2 0.0 - 10.0 % [facility] Eosinophils 3.6 0.0 - 5.0 % [facility] Basophils 0.5 0.0 - 1.0 % [facility] Specimen Blood Performing Organization Address City/[facility] Phone Number [facility] DEPARTMENT PATHOLOGY AND [address] [place] [address] Basic metabolic panel (05/04/2018 5:05 AM RAIL TRANSPORTATION TABELER)Only the most recent of4 resultswithin the time period is included. Sodium 142 135 - 148 mEq/L [facility] Potassium 4.0 3.5 - 5.0 mEq/L [facility] Chloride 108 98 - 112 mEq/L [facility] CO2 25 24 - 31 mEq/L [facility] Anion gap 9@ANIO 7 - 15 mEq/L [facility] BUN 13 6 - 20 mg/dL [facility] Creatinine 1.00 0.70 - 1.20 mg/dL [facility] Glucose 120 (H) 65 - 99 mg/dL [facility] Calcium 8.9 8.3 - 10.2 mg/dL [facility] Specimen Plasma specimen Performing Organization Address [facility] Phone Number [facility] DEPARTMENT PATHOLOGY AND [address] [place] [address] POC glucose (05/02/2018 5:46 PM RAIL TRANSPORTATION TABELER)Only the most recent of14 resultswithin the time period is included. POC glucose 119 (H) 65 - 99 mg/dL [facility] Comment: HOSPITAL Meter ID: [id number] Cert Pharmacy Tech: Yuval Barrientos Performing Organization Address City/[facility] Phone Number [facility] DEPARTMENT PATHOLOGY AND [address] [place] [address] Urinalysis screen and microscopy, with reflex to culture (05/01/2018 3:33 PM RAIL TRANSPORTATION TABELER)Only the most recent of4 resultswithin the time period is included. Specimen site Clean catch [facility] Color, UA Yellow [facility] Appearance, UA Clear [facility] Specific gravity, UA 1.028 1.001 - 1.035 [facility] pH, UA 5.0 5.0 - 8.5 [facility] Protein, UA Negative Negative [facility] Glucose, UA 3+ (A) Negative [facility] Ketones, UA Negative Negative [facility] Bilirubin, UA Negative Negative [facility] Blood, UA Negative Negative [facility] Nitrite, UA Negative Negative [facility] Urobilinogen, UA 4.0 (A) <2.0 [facility] Leukocyte esterase, UA Negative Negative [facility] Epithelial cells, UA Few /HPF [facility] WBC, UA 0-5 0 - 1 /HPF [facility] RBC, UA 0-5 0 - 5 /HPF [facility] Bacteria, UA None seen None seen [facility] Yeast, UA None seen [facility] Yeast with pseudohyphae, UA None seen [facility] Specimen Urine Performing Organization Address City/[facility] Phone Number [facility] DEPARTMENT OF PATHOLOGY AND [address] [place] [address] Urine culture (05/01/2018 3:33 PM RAIL TRANSPORTATION TABELER)Only the most recent of4 resultswithin the time period is included. Urine culture SEE COMMENTComment: Bacteriuria [facility] screen negative. [facility] Specimen Urine Performing Organization Address City/[facility]code Phone Number [facility] DEPARTMENT OF PATHOLOGY AND [address] [place] [address] [place] [address] GENOMIC MEDICINE [address] [place] [address] [facility] [address] Head Wo Contrast (05/01/2018 2:36 PM RAIL TRANSPORTATION TABELER)Only the most recent of3 resultswithin the time [...] abnormality. IMPRESSION: No acute intracranial abnormality identified. [id number] Procedure Note Hm Interface, Radiology Results Incoming - 05/01/2018 2:42 PM RAIL TRANSPORTATION TABELER EXAMINATION: CT HEAD WO CONTRAST CLINICAL HISTORY: [...] abnormality. IMPRESSION: No acute intracranial abnormality identified. [facility]-[id number] Performing Organization Address City/State/Zipcode Phone Number [facility] [address] [place] [address] Venous blood gas (05/01/2018 1:51 PM RAIL TRANSPORTATION TABELER) pH, venous 7.36 7.32 - 7.42 [facility] pCO2, venous 43 (L) 45 - 51 mmHg [facility] pO2, venous 61 (H) 25 - 40 mmHg [facility] Base excess, venous -2 -2 - 2 meq/L [facility] O2 saturation, venous 92 (H) 40 - 70 % [facility] Bicarbonate, venous 23.1 21.0 - 28.0 mmol/L [facility] FiO2, inspired O2% Unknown % [facility] Specimen Blood Performing Organization Address City/[facility] Phone Number [facility] DEPARTMENT OF PATHOLOGY AND [address] [place] [address] GENOMIC MEDICINE [facility] [address] [place] [address] [facility] XR Chest 1 Vw Portable (05/01/2018 1:10 PM RAIL TRANSPORTATION TABELER) Narrative Performed At EXAMINATION:XR CHEST 1 [facility]W [facility] CLINICAL HISTORY:weaknessfatigue COMPARISON:Left rib series [...] unchanged. Mild cardiomegaly. The bones are unremarkable. [facility]-[id number] Procedure Note Interface, Radiology Results Incoming - 05/01/2018 1:27 PM RAIL TRANSPORTATION TABELER EXAMINATION: XR CHEST 1 VW PORTABLE CLINICAL [...] unchanged. Mild cardiomegaly. The bones are unremarkable. [facility]-[id number] Performing Organization Address City/State/Zipcode Phone Number [facility] [address] [place] [address] Respiratory pathogen panel (05/01/2018 12:40 PM RAIL TRANSPORTATION TABELER) Respiratory pathogen Negative for all pathogens tested: [facility] Negative for Adenovirus [facility] Negative for Coronavirus HKU1 Negative for Coronavirus [...] Left Performing Organization Address City/State/Zipcode Phone Number [facility] DEPARTMENT OF PATHOLOGY AND [address] [place] [address] GENOMIC MEDICINE [address] [address] Procalcitonin (05/01/2018 12:40 PM RAIL TRANSPORTATION TABELER) Procalcitonin 0.65 (H) <=0.07 ng/mL [facility] Comment: INTERPRETIVE INFORMATION: Procalcitonin Effective November 11, 2017, this test is performed by the [facility] Procalcitonin assay. A correction has been [...] condition(s) of the individual patient. Performed at: [facility] [address] [facility] [address] Specimen Serum Performing Organization Address City/[facility]/Zipcode Phone Number [facility] [address] [place] [address] [facility] [address] [place] [address] Influenza antigen test, reflex negative to RPP (05/01/2018 12:40 PM RAIL TRANSPORTATION TABELER) Influenza antigen Negative for Influenza A/B antigen. [facility] Comment: HOSPITAL Specimen Information Specimen Source: Nares Specimen Site: Left Specimen Nares - Left Performing Organization Address [facility] Phone Number [facility] DEPARTMENT OF PATHOLOGY AND [address] [place] [address] Troponin (05/01/2018 12:40 PM RAIL TRANSPORTATION TABELER)Only the most recent of6 resultswithin the time period is included. Troponin <0.300 0.000 - 0.300 ng/mL [facility] Comment: HOSPITAL 0.30 - 1.49 ng/mlMay indicate increased risk of acute coronary syndrome. >=1.5 ng/mlConsistent with acute myocardial infarction. The diagnostic value of a single normal or non-diagnostic result is questionable.Serial samples at 2-6 hour intervals are required to rule out acute myocardial injury. Specimen Plasma specimen Performing Organization Address [facility] Phone Number [facility] DEPARTMENT OF PATHOLOGY AND [address] [place] [address] [address] C-reactive protein (05/01/2018 12:40 PM RAIL TRANSPORTATION TABELER)Only the most recent of2 resultswithin the time period is included. CRP 1.21 (H) 0.00 - 0.50 mg/dL [facility] Specimen Plasma specimen Performing Organization Address [facility]/Zipcode Phone Number [facility] DEPARTMENT OF PATHOLOGY AND [address] [place], [place] [address] [address] [place] [address] Lipase level (05/01/2018 12:40 PM RAIL TRANSPORTATION TABELER)Only the most recent of5 resultswithin the time period is included. Lipase 39 13 - 60 U/L [facility] Specimen Plasma specimen Performing Organization Address [facility] Phone Number [facility] DEPARTMENT OF PATHOLOGY AND [address] [place] [id number] [place] [address] Creatine kinase, total (CPK) (05/01/2018 12:40 PM RAIL TRANSPORTATION TABELER)Only the most recent of3 resultswithin the time period is included. Creatine kinase 54 39 - 308 U/L [facility] Specimen Plasma specimen Performing Organization Address [facility] Phone Number [facility] DEPARTMENT OF PATHOLOGY AND [address] [place] [id number] [place] [address] Hepatic function panel (05/01/2018 12:40 PM RAIL TRANSPORTATION TABELER)Only the most recent of3 resultswithin the time period is included. Albumin 4.1 3.5 - 5.0 g/dL [facility] Total bilirubin 0.6 0.0 - 1.2 mg/dL [facility] Bilirubin direct <0.1 0.0 - 0.3 mg/dL [facility] Alkaline phosphatase 121 40 - 129 U/L [facility] Protein 8.1 6.3 - 8.3 g/dL [facility] Comment: HOSPITAL [place]pinit 4.6-7.0 g/dL 1 week 4.4-7.6 g/dL 7 months-1year5.1-7.3 g/dL 1-2 years5.6-7.5 g/dL >3 years6.0-8.0 g/dL 18-150 6.3-8.3 g/dL ALT 27 5 - 50 U/L [facility] AST 40 10 - 50 U/L [facility] Specimen Plasma specimen Performing Organization Address City/State/Zipcode Phone Number [facility] DEPARTMENT OF PATHOLOGY AND [address] [place] [address] GENOMIC MEDICINE [facility] [address] [place] [address] [facility] ECG ED Preliminary Interpretation - Not an Order (05/01/2018 12:19 PM RAIL TRANSPORTATION TABELER)Only the most recent of5 resultswithin the time period is included. Narrative Performed At Christiano Resendez MD 05/01/20182:23 PM ECG ED Preliminary Interpretation - Not an Order Performed by: Christiano Resendez MD Authorized by: Christiano Resendez MD ECG reviewed by ED Physician in the absence of a gasoline engine assembler: yes Previous ECG: Previous ECG:Compared to current Similarity:No change Interpretation: Interpretation: normal Rate: ECG rate:68 ECG rate assessment: normal Rhythm: Rhythm: sinus rhythm Ectopy: Ectopy: none QRS: QRS axis:Left QRS intervals:Normal Conduction: Conduction: normal ST segments: ST segments:Normal T waves: T waves: normal Comments: Read at 12:18 pm ECG 12 lead (05/01/2018 12:18 PM RAIL TRANSPORTATION TABELER)Only the most recent of6 resultswithin the time period is included. Ventricular rate 68 [facility] Atrial rate 68 [facility] FL interval 128 [facility] QRSD interval 84 [...] found- Narrative Performed At Performing Organization Address City/[facility]/Zipcode Phone Number [facility] [address] [place] [address] XR Forearm 2 Vw Right (02/07/2018 2:37 AM CDT)Only the most recent of2 resultswithin the time period is included. Narrative Performed At XR FOREARM 2 VW RIGHT [facility] CLINICAL INDICATION:Fractureforearm COMPARISON:None. IMPRESSION: There is no acute fracture or dislocation. There are mild degenerative changes at the base of the thumb. Osseous mineralization is normal. [facility]-[id number] Procedure Note Interface, Radiology Results Incoming - 02/07/2018 2:45 AM CDT XR FOREARM 2 VW RIGHT CLINICAL INDICATION: Fracture forearm COMPARISON: None. IMPRESSION: There is no acute fracture or dislocation. There are mild degenerative changes at the base of the thumb. Osseous mineralization is normal. [facility]-[id number] Performing Organization Address [facility] Phone Number [facility] [address] [place] [address] XR Hand 3+ Vw Right (02/07/2018 2:37 AM CDT) Narrative Performed At XR HAND 3VW RIGHT [facility] CLINICAL INDICATION:Fracturehand COMPARISON:None. IMPRESSION: There is no acute fracture or dislocation. There are mild degenerative changes of the base of the thumb. Osseous mineralization is normal. [facility]-[id number] Procedure Note Interface, Radiology Results Incoming - 02/07/2018 2:42 AM CDT XR HAND 3 VW RIGHT CLINICAL INDICATION: Fracture hand COMPARISON: None. IMPRESSION: There is no acute fracture or dislocation. There are mild degenerative changes of the base of the thumb. Osseous mineralization is normal. [facility]-[id number] Performing Organization Address [facility] Phone Number [facility] [address] [place] [address] XR Ribs W Pa Chest Left (01/15/2018 2:19 AM CDT) Narrative Performed At Examination:XR RIBS W PA CHEST LEFT [facility] Clinical History: fall Comparison: None. Findings: Single [...] abnormality identified in the chest or leftribs. [facility]-[id number] Procedure Note Interface, Radiology Results Incoming - [...] identified in the chest or left ribs. [facility]-[id number] Performing Organization Address City/[facility]/[place] Phone Number PATRICIA LOPEZ [address] [place] [address] Estimated GFR (01/15/2018 1:57 AM CDT)Only the most recent of9 resultswithin the time period is included. GFR Non Af Amer 72 mL/min/1.73 m2 [facility] DEPARTMENT OF PATHOLOGY AND [facility] MEDICINE GFR Af Amer 87 mL/min/1.73 m2 [facility] DEPARTMENT OF Comment: PATHOLOGY AND [facility] Chronic kidney disease: <60 mL/min/1.73m2 MEDICINE [...] Americans. Specimen Plasma specimen Performing Organization Address [facility] Phone Number [facility] DEPARTMENT OF PATHOLOGY AND [address] [place] [address] [place] [address] [facility] Partial thromboplastin time, activated (01/15/2018 1:57 AM CDT)Only the most recent of3 resultswithin the time period is included. PTT 35.1 23.0 - 36.0 sec [facility] DEPARTMENT OF Comment: PATHOLOGY AND [facility] PTT therapeutic range for unfractionated heparin is MEDICINE 61.0-112.0 seconds which corresponds to Anti-Xa 0.3-0.7 U/ml. Specimen Blood Performing Organization Address [facility] Phone Number [facility] DEPARTMENT OF PATHOLOGY AND [address] [place] [address] [place] [address] [facility] Prothrombin time with INR (01/15/2018 1:57 AM CDT)Only the most recent of3 resultswithin the time period is included. Prothrombin time 13.6 12.0 - 15.0 sec [facility] DEPARTMENT OF PATHOLOGY AND GENOMIC MEDICINE INR 1.0 [facility] DEPARTMENT OF Comment: PATHOLOGY AND GENOMIC The International Normalized Ratio (INR) is a therapeutic MEDICINE monitoring tool for patients who are stable on oral anticoagulant therapy. An INR of 2.0-3.0 is suggested for deep vein thrombosis/pulmonary embolism. Specimen Blood Performing Organization Address City/State/Zipcode Phone Number [facility] DEPARTMENT OF PATHOLOGY AND [address] [address] [facility] MEDICINE CT Renal Stone Protocol (01/02/2018 [...] seen associated with the device or catheter. [facility]-[id number] Procedure Note Interface, Radiology Results Incoming - [...] seen associated with the device or catheter. [facility]-[id number] Performing Organization Address City/State/Zipcode Phone Number [facility] [address] [place] [address] Comprehensive metabolic panel (01/02/2018 10:40 PM CDT)Only the most recent of7 resultswithin the time period is included. Sodium 141 135 - 148 mEq/L [facility] DEPARTMENT OF PATHOLOGY AND GENOMIC MEDICINE Potassium 3.9 3.5 - 5.0 mEq/L [facility] DEPARTMENT OF PATHOLOGY AND GENOMIC MEDICINE Chloride 103 98 - 112 mEq/L [facility] DEPARTMENT OF PATHOLOGY AND GENOMIC MEDICINE CO2 26 24 - 31 mEq/L [facility] DEPARTMENT OF PATHOLOGY AND GENOMIC MEDICINE Anion gap 12@ANIO 7 - 15 mEq/L [facility] DEPARTMENT OF PATHOLOGY AND GENOMIC MEDICINE BUN 9 6 - 20 mg/dL [facility] DEPARTMENT OF PATHOLOGY AND GENOMIC MEDICINE Creatinine 1.2 0.7 - 1.2 mg/dL [facility] OF PATHOLOGY AND GENOMIC [facility] Glucose 203 (H) 65 - 99 mg/dL [facility] DEPARTMENT OF PATHOLOGY AND GENOMIC [facility] Calcium 8.6 8.3 - 10.2 mg/dL [facility] DEPARTMENT OF PATHOLOGY AND GENOMIC [facility] Protein 8.1 6.3 - 8.3 g/dL [facility] DEPARTMENT OF Comment: PATHOLOGY AND GENOMIC [place] 4.6-7.0 g/dL MEDICINE 1 week 4.4-7.6 g/dL 7 months-1year5.1-7.3 g/dL 1-2 years5.6-7.5 g/dL >3 years6.0-8.0 g/dL 18-150 6.3-8.3 g/dL Albumin 3.9 3.5 - 5.0 g/dL [facility] OF PATHOLOGY AND GENOMIC [facility] A/G ratio 0.9 0.7 - 3.8 [facility] DEPARTMENT OF PATHOLOGY AND GENOMIC [facility] Alkaline phosphatase 97 40 - 129 U/L [facility] DEPARTMENT OF PATHOLOGY AND GENOMIC MEDICINE AST 20 10 - 50 U/L [facility] DEPARTMENT OF PATHOLOGY AND GENOMIC MEDICINE ALT 11 5 - 50 U/L [facility] DEPARTMENT OF PATHOLOGY AND GENOMIC [facility] Total bilirubin 0.4 0.0 - 1.2 mg/dL [facility] DEPARTMENT OF PATHOLOGY AND GENOMIC [facility] Specimen Plasma specimen Performing Organization Address City/State/Zipcode Phone Number [facility] DEPARTMENT OF PATHOLOGY AND [address] [place] [address] [facility] CT Abdomen Pelvis Wo Contrast (12/24/2017 8:21 PM CDT)Only the most recent of2 resultswithin [...] inguinal lymphadenopathy is identified. IMPRESSION: Unremarkable exam. [facility]-[id number] Procedure Note Interface, Radiology Results Incoming - 12/24/2017 8:44 PM CDT EXAMINATION: CT [...] inguinal lymphadenopathy is identified. IMPRESSION: Unremarkable exam. [facility]-[id number] Performing Organization Address [facility] Phone Number [facility] [address] [place] [address] B natriuretic peptide (12/24/2017 8:08 PM CDT) BNP 17 0 - 100 pg/mL [facility] DEPARTMENT OF PATHOLOGY AND GENOMIC MEDICINE Specimen Blood Performing Organization Address [facility] Phone Number [facility] DEPARTMENT OF PATHOLOGY AND [address] [place] [address] GENOMIC [facility] Phosphorus level (12/21/2017 3:56 AM CDT) Phosphorus 3.1 2.4 - 4.5 mg/dL [facility] DEPARTMENT OF PATHOLOGY AND GENOMIC MEDICINE Specimen Plasma specimen Performing Organization Address [facility] Phone Number [facility] DEPARTMENT OF PATHOLOGY AND [address] [place] [address] GENOMIC [facility] Magnesium level (12/21/2017 3:56 AM CDT) Magnesium 1.8 1.6 - 2.6 mg/dL [facility] DEPARTMENT OF PATHOLOGY AND GENOMIC MEDICINE Specimen Plasma specimen Performing Organization Address [facility] Phone Number [facility] DEPARTMENT OF PATHOLOGY AND [address] [place] [address] [facility] MEDICINE CRITICAL CARE (12/21/2017 1:05 AM CDT) [...] No growth after 5 days of incubation. [facility] DEPARTMENT OF Comment: PATHOLOGY AND GENOMIC Specimen Information MEDICINE Specimen Source: Blood Specimen Site: Antecubital, left Specimen Blood - Antecubital, left Performing Organization Address City/[facility] Phone Number [facility] DEPARTMENT OF PATHOLOGY AND [address] [place] [address] GENOMIC MEDICINE Lactic acid level, SEPSIS - Now and repeat 2x every 3 hours (12/20/2017 9:20 PM CDT) Lactic acid 1.3 0.5 - 2.2 mmol/L [facility] DEPARTMENT OF PATHOLOGY AND GENOMIC MEDICINE Specimen Plasma specimen Performing Organization Address [facility] Phone Number [facility] DEPARTMENT OF PATHOLOGY AND [address] [place] [address] GENOMIC MEDICINE Sedimentation rate (12/20/2017 9:20 PM CDT) Sedimentation rate 38 (H) 0 - 10 mm/hr [facility] DEPARTMENT OF PATHOLOGY AND GENOMIC MEDICINE Specimen Blood Performing Organization Address [facility] Phone Number [facility] DEPARTMENT OF PATHOLOGY AND [address] [place] [address] [facility] MEDICINE OR FL < 1 Hour [...] DOSAGE:41.57 mGy TECH: TS Performing Organization Address [facility] Phone Number [facility] [address] [place] [address] ECG Pre/Post Op (11/20/2017 4:45 PM CDT) Ventricular rate 74 [facility] Atrial rate 74 [facility] FL interval 138 [facility] QRSD interval 86 [facility] QT interval 364 [facility] QTC interval 404 [facility] P axis 1 15 [facility] QRS axis 1 -34 [facility] T wave axis 8 [facility] M[facility] EKG impression Normal sinus rhythm-Left axis [facility] M[facility] deviation-Abnormal ECG-In automated comparison with ECG of 24-AUG-2017 22:48,-No significant change was found- Performing Organization Address [facility] Phone Number [facility] [address] [place] [address] Hemoglobin A1c (11/20/2017 4:34 PM CDT) Hemoglobin A1C 7.9 (H) 4.0 - 5.6 % [facility] DEPARTMENT OF PATHOLOGY Comment: AND GENOMIC MEDICINE HbA1c cutoffs for diagnosing diabetes: 4.0% - 5.6%=normal 5.7% - 6.4%=increased risk for diabetes (prediabetes) >=6.5%=diabetes Goals for glycemic control (ADA 2016) < 7.0%Target for non adults with diabetes. More or less stringent targets may be appropriate for individual patients. <7.5% Target for Children and adolescents with type 1 diabetes. Specimen Blood Performing Organization Address [facility] Phone Number [facility] DEPARTMENT OF PATHOLOGY AND [address] [place] [id number] GENOMIC MEDICINE XR Shoulder 2+ Vw Left (10/29/2017 7:50 PM CDT) Narrative Performed At EXAMINATION:XR SHOULDER 2VW LEFT [facility] CLINICAL HISTORY:pain COMPARISON:None. IMPRESSION: No evidence of acute left shoulder fracture or dislocation. Soft tissues are unremarkable. [facility]-[id number] Procedure Note Interface, Radiology Results Incoming - 10/29/2017 8:18 PM CDT EXAMINATION: XR SHOULDER 2 VW LEFT CLINICAL HISTORY: pain COMPARISON: None. IMPRESSION: No evidence of acute left shoulder fracture or dislocation. Soft tissues are unremarkable. [facility]-[id number] Performing Organization Address [facility] Phone Number [facility] [address] [place] [address] XR Chest 2 Vw (10/29/2017 7:50 PM CDT)Only the most recent of2 resultswithin the time period is included. Narrative Performed At EXAMINATION: XR CHEST 2 VW [facility] CLINICAL HISTORY: SOBl shoulder pain r o ptx COMPARISON:08/24/2017 chest x-ray. IMPRESSION: The lungs are clear. No pleural effusion or pneumothorax. The cardiomediastinal silhouette is normal. No acute osseous abnormalities. [facility]-[id number] Procedure Note Interface, Radiology Results Incoming - 10/29/2017 8:18 PM CDT EXAMINATION: XR CHEST 2 VW CLINICAL HISTORY: SOB l shoulder pain r o ptx COMPARISON: 08/24/2017 chest x-ray. IMPRESSION: The lungs are clear. No pleural effusion or pneumothorax. The cardiomediastinal silhouette is normal. No acute osseous abnormalities. [facility]-[id number] Performing Organization Address [facility] Phone Number [facility] [address] [place] [address] CT Maxillofacial Wo Contrast (08/24/2017 10:32 PM [...] the left maxillary medial incisor is noted. [facility]-[id number] Procedure Note Hm Interface, Radiology Results Incoming [...] the left maxillary medial incisor is noted. [facility]-[id number] Performing Organization Address City/State/Zipcode Phone Number [facility] [address] [place] [address] after 05/26/2017 Insurance Payer Benefit Plan / Group Subscriber ID Type Phone Address [facility] MEDICARE [facility] DUAL COMPLETE MCR xxxxxxxxx O Advance Directives Patient has advance care planning documents on file. For more information, please contact:Joshua Arciniega[address] [place] [address]
--- OUTSIDE RECORDS SUMMARY | 2018-05-27 00:11 | XMS REPORT ---
:1970 [facility] Address [address] [place] [address] Care Team Providers Name Role Phone NONE Primary Care Provider Unavailable Payers Payer Name Policy Type Policy Number Effective Date Expiration Date Problems This patient has no known problems. Allergies, Adverse Reactions, Alerts Allergy Name Allergy Status Severity Reaction(s) Onset Inactive Treating Comments Type Date Date Clinician iodine DA Active SV 2018-05 00:00:0 0 lisinopril DA Active NM 2018-05 00:00:0 0 iodine DA Active NM 2018-05 00:00:0 0 lorazepam DA Active MO 2018-05 00:00:0 0 aspirin DA Active NM 2018-05 00:00:0 0 ropinirole DA Active NM 2018-05 00:00:0 0 lorazepam DA Active MO 2018-02 00:00:0 0 lisinopril DA Active NM 2017-12 00:00:0 0 iodine DA Active NM 2017-12 00:00:0 0 aspirin DA Active NM 2017-12 00:00:0 0 ropinirole DA Active NM 2017-12 00:00:0 0 Medications This patient has no known medications. Encounters Start End Encounter Admission Attending Care Care Encounter Date/Time Date/Time Type Type Clinicians Facility Department ID 2017-07-31 2017-07-31 Emergency E [facility] [id number] 19:16:00 19:16:00
[2018-05-27] MEDS ORDERED: MORPHINE 4 MG/ML SYR ONE ×2 (01:02→04:11)
[2018-05-27] MEDS ORDERED: ONDANSETRON 4 MG/2 ML VIAL ONE (01:03)
[2018-05-27 01:05] LABS: Absolute Lymphocytes (CBC) 2.4 K/uL (0.7-4.9); Absolute Monocytes 0.9 K/uL (0.1-1.3); Absolute Neutrophil 7.7 K/uL (1.8-8.0); Eosinophils % 3.8 % (0-4.4); Hematocrit 46.2 % (39.6-49.0); Lymphocytes % 20.8 % (15.3-44.8); MPV 11.3 fL (7.6-11.3); Monocytes % 7.6 % (3.3-12.3); RBC Red Blood Cell Count 5.32 M/uL (4.33-5.43)
[2018-05-27 01:06] LABS: Protime INR 1.02
[2018-05-27 01:19] LABS: ALT/SGPT 30 U/L (12-78); AST/SGOT 24 U/L (15-37); Albumin 3.2 g/dL (3.4-5.0); Alkaline Phosphatase 93 U/L (45-117); BUN Blood Urea Nitrogen 12 mg/dL (7-18); Bicarbonate 26 mmol/L (21-32); Bilirubin Direct 0.1 mg/dL (0-0.2); Bilirubin Total 0.3 mg/dL (0.2-1.0); Glucose Level 203 mg/dL (74-106); Magnesium 2.1 mg/dL (1.8-2.4); NT PRO-BNP 63 pg/mL (<125); Potassium 3.7 mmol/L (3.5-5.1); Protein, Total 7.1 g/dL (6.4-8.2); Sodium Level 139 mmol/L (136-145); Troponin (Emerg Dept Use Only) < 0.02 ng/mL (0.0-0.045)
[2018-05-27] MEDS ORDERED: NITROGLYCERIN 0.4 MG/TAB SL ONE (02:11)
--- NOTE | 2018-05-27 02:34 | ER ---
Nurse's Notes [facility] Name: Matti Juarez Age: 47 yrs Sex: Male : 1970 Arrival Date: 05/27/2018 Time: 00:07 Bed 16 Private MD: Diagnosis: Chest pain, unspecified Presentation: 05/27 00:20 Presenting complaint: Patient states: sudden chest pain radiating to left arm started rr5 at 2330H. pain score of 4/10. nauseated no vomiting. 00:20 Transition of care: patient was not received from another setting of care. Onset of rr5 symptoms was May 26, 2018 at 23:30. Risk Assessment: Do you want to hurt yourself or someone else? Patient reports no desire to harm self or others. Initial Sepsis Screen: Does the patient meet any 2 criteria? No. Patient's initial sepsis screen is negative. Does the patient have a suspected source of infection? No. Patient's initial sepsis screen is negative. Care prior to arrival: None. 00:20 Method Of Arrival: Ambulatory rr5 00:20 Acuity: JELENA 3 rr5 Historical: - Allergies: 00:40 Aspirin; rr5 00:40 atorvastatin; rr5 00:40 Iodinated Contrast Media - IV Dye (cardiac arrest); rr5 00:40 Requip; rr5 00:40 SHELLFISH; rr5 - Home Meds: 00:40 Lyrica Oral [Active]; metformin 1,000 mg Oral tab 1 tab 2 times per day [Active]; rr5 promethazine 25 mg Oral tab 1 tab every 6 hours [Active]; rosuvastatin 10 mg Oral tab 1 tab once daily [Active]; sertraline 50 mg Oral tab 1 tab once daily [Active]; trazodone 50 mg Oral tab [Active]; - PMHx: 00:40 cardiac arrest; Diabetes - NIDDM; Hypertension; heart catheterization; rr5 - PSHx: 00:40 spinal fusion; rr5 - Immunization history:: Adult Immunizations up to date, Pneumococcal vaccine is up to date, Flu vaccine is up to date. - Social history:: Smoking status: Patient/guardian denies using tobacco, Patient/guardian denies using alcohol, street drugs. - Ebola Screening: : Patient negative for fever greater than or equal to 101.5 degrees Fahrenheit, and additional compatible Ebola Virus Disease symptoms Patient denies exposure to infectious person Patient denies travel to an Ebola-affected area in the 21 days before illness onset. Screenin:30 Abuse screen: Denies threats or abuse. Denies injuries from another. Nutritional rr5 screening: No deficits noted. Tuberculosis screening: No symptoms or risk factors identified. Fall Risk IV access (20 points). Total Thorpe Fall Scale indicates No Risk (0-24 pts). Assessment: 00:30 General: Appears in no apparent distress. comfortable, Behavior is calm, cooperative, rr5 appropriate for age. Pain: Complains of pain in chest Pain radiates to left arm Pain currently is 4 out of 10 on a pain scale. Quality of pain is described as Pain began gradually, Is intermittent. 00:30 Neuro: Level of Consciousness is awake, alert, obeys commands, Oriented to person, rr5 place, time, situation, Appropriate for age. Cardiovascular: Capillary refill < 3 seconds Patient's skin is warm and dry. Cardiovascular: Chest pain. Respiratory: Airway is patent Respiratory effort is even, unlabored, Respiratory pattern is regular, symmetrical. GI: No signs and/or symptoms were reported involving the gastrointestinal system. : No signs and/or symptoms were reported regarding the genitourinary system. EENT: No signs and/or symptoms were reported regarding the EENT system. Derm: Skin is intact, Skin temperature is warm. 02:00 Reassessment: Patient appears in no apparent distress at this time. Patient and/or rr5 family updated on plan of care and expected duration. Pain level reassessed. complaints of chest pain 12/20. 02:00 Pain: Complains of pain in chest Pain radiates to left arm Pain currently is 8 out of rr5 10 on a pain scale. Quality of pain is described as aching, Pain began gradually, Is intermittent. 02:30 Reassessment: Patient appears in no apparent distress at this time. Patient and/or rr5 family updated on plan of care and expected duration. Pain level reassessed. Patient states feeling better. Patient states symptoms have improved. 03:30 Reassessment: Pt states that he is having severe chest pain. Vj BE notified and orders rec'd for EKG and Nitro s/l. 03:41 Reassessment: EKG shown to Vj BE and orders rec'd for Amlodipine 5 mg po now. fc Vital Signs: 00:25 BP 146 / 84; Pulse 72; Resp 19; Temp 98.8; Pulse Ox 100% ; Weight 110.68 kg; Height 5 rr5 ft. 6 in. (167.64 cm); Pain 4/10; 01:00 BP 157 / 99; Pulse 75; Resp 19; Pulse Ox 99% ; rr5 02:00 BP 148 / 83; Pulse 68; Resp 17; Pulse Ox 99% ; rr5 02:30 BP 149 / 80; Pulse 76; Resp 17; Pulse Ox 100% ; rr5 03:00 BP 141 / 92; Pulse 75; Resp 17; Pulse Ox 100% ; rr5 03:30 BP 141 / 82; Pulse 82; Resp 19; Pulse Ox 99% ; Pain 10/10; rr5 04:30 BP 125 / 84; Pulse 70; Resp 17; Pulse Ox 98% ; rr5 00:25 Body Mass Index 39.38 (110.68 kg, 167.64 cm) rr5 ED Course: 00:07 Patient arrived in ED. al2 00:20 Vj Suero PA is PHCP. jr8 00:21 Sherwin Marsh MD is Attending Physician. jr8 00:27 EKG completed in triage. Results shown to MD. rr5 00:27 Patient has correct armband on for positive identification. Placed in gown. Bed in low rr5 position. Call light in reach. Side rails up X 1. electronic device monitor on. Pulse ox on. NIBP on. 00:30 Patient maintains SpO2 saturation greater than 95% on room air. rr5 00:40 Inserted saline lock: 20 gauge in left forearm, using aseptic technique. Blood rr5 collected. 00:40 Arm band placed on right wrist. rr5 01:01 Kenneth Kimbrough, RN is Primary Nurse. rr5 01:06 X-ray completed. Portable x-ray completed in exam room. Patient tolerated procedure kw well. 01:11 Triage completed. rr5 01:13 XRAY Chest (1 view) In Process Unspecified. EDMS 02:33 Mariola Romero MD is Hospitalizing Provider. jr8 04:30 No provider procedures requiring assistance completed. Patient admitted, IV remains in rr5 place. intact, No redness/swelling at site. Administered Medications: 01:00 Drug: Zofran 4 mg Route: IVP; Site: left forearm; rr5 03:46 Follow up: Response: No adverse reaction rr5 01:02 Drug: morphine 4 mg Route: IVP; Site: left forearm; rr5 03:46 Follow up: Response: No adverse reaction rr5 02:00 Drug: Nitroglycerin 0.4 mg {Note: chest pain 8/10. .} Route: Sublingual; rr5 03:46 Follow up: Response: No adverse reaction rr5 03:35 Drug: Nitroglycerin 0.4 mg Route: Sublingual; rr5 04:42 Follow up: Response: No adverse reaction rr5 03:40 Drug: amLODIPine 5 mg Route: PO; rr5 04:41 Follow up: Response: No adverse reaction rr5 Outcome: 02:34 Decision to Hospitalize by Provider. jr8 04:51 Admitted to ER Hold. Please see [facility] for further documentation. rr5 04:51 Condition: stable 04:51 Instructed on the need for admit. 08:10 Patient left the ED. hj Signatures: Dispatcher [employer] EDMS Deborah Syed RN RN Violeta Alvarado Josh, PA PA jr8 Yonatan Becerra RN RN hj Love, Angelica al2 Roque, Raymond, RN RN rr5 Corrections: (The following items were deleted from the chart) 04:33 04:30 Reassessment: Patient appears in no apparent distress at this time. Patient rr5 and/or family updated on plan of care and expected duration. Pain level reassessed. discharge instruction and prescription given and explained without complaints made. Patient states feeling better. Patient states symptoms have improved. rr5 04:38 04:30 IV discontinued, intact, bleeding controlled, No redness/swelling at site. rr5 Pressure dressing applied, rr5
--- NOTE | 2018-05-27 02:34 | EDPHYS ---
Physician Documentation [facility] Name: Matti Juarez Age: 47 yrs Sex: Male : 1970 Arrival Date: 05/27/2018 Time: 00:07 Bed 16 Private MD: ED Physician Sherwin Marsh HPI: 05/27 01:11 This 47 yrs old Male presents to ER via Ambulatory with complaints of Chest jr8 Pain. 01:11 Onset: The symptoms/episode began/occurred acutely, today. Associated signs and jr8 symptoms: The patient has no apparent associated signs or symptoms. Modifying factors: The patient symptoms are alleviated by nothing, the patient symptoms are aggravated by nothing. The patient has experienced similar episodes in the past, a few times. The patient has been recently seen by a physician:. Patient stated that he has had history of chest pain for past few years. Has had three heart catheterization's without stent placement. Last one being about 2 weeks ago. All of them completed for chest pain. Came tonight for chest pain. Comes and goes. Pressure and sharp in nature . Historical: - Allergies: 00:40 Aspirin; rr5 00:40 atorvastatin; rr5 00:40 Iodinated Contrast Media - IV Dye (cardiac arrest); rr5 00:40 Requip; rr5 00:40 SHELLFISH; rr5 - Home Meds: 00:40 Lyrica Oral [Active]; metformin 1,000 mg Oral tab 1 tab 2 times per day [Active]; rr5 promethazine 25 mg Oral tab 1 tab every 6 hours [Active]; rosuvastatin 10 mg Oral tab 1 tab once daily [Active]; sertraline 50 mg Oral tab 1 tab once daily [Active]; trazodone 50 mg Oral tab [Active]; - PMHx: 00:40 cardiac arrest; Diabetes - NIDDM; Hypertension; heart catheterization; rr5 - PSHx: 00:40 spinal fusion; rr5 - Immunization history:: Adult Immunizations up to date, Pneumococcal vaccine is up to date, Flu vaccine is up to date. - Social history:: Smoking status: Patient/guardian denies using tobacco, Patient/guardian denies using alcohol, street drugs. - Ebola Screening: : Patient negative for fever greater than or equal to 101.5 degrees Fahrenheit, and additional compatible Ebola Virus Disease symptoms Patient denies exposure to infectious person Patient denies travel to an Ebola-affected area in the 21 days before illness onset. ROS: 01:11 Eyes: Negative for injury, pain, redness, and discharge, ENT: Negative for injury, jr8 pain, and discharge, Neck: Negative for injury, pain, and swelling, Respiratory: Negative for shortness of breath, cough, wheezing, and pleuritic chest pain, Abdomen/GI: Negative for abdominal pain, nausea, vomiting, diarrhea, and constipation, Back: Negative for injury and pain, MS/Extremity: Negative for injury and deformity, Skin: Negative for injury, rash, and discoloration, Neuro: Negative for headache, weakness, numbness, tingling, and seizure. 01:11 Cardiovascular: Positive for chest pain, Negative for edema, orthopnea, palpitations, paroxysmal nocturnal dyspnea. Exam: 01:11 Eyes: Pupils equal round and reactive to light, extra-ocular motions intact. Lids and jr8 lashes normal. Conjunctiva and sclera are non-icteric and not injected. Cornea within normal limits. Periorbital areas with no swelling, redness, or edema. ENT: Nares patent. No nasal discharge, no septal abnormalities noted. Tympanic membranes are normal and external auditory canals are clear. Oropharynx with no redness, swelling, or masses, exudates, or evidence of obstruction, uvula midline. Mucous membranes moist. Neck: Trachea midline, no thyromegaly or masses palpated, and no cervical lymphadenopathy. Supple, full range of motion without nuchal rigidity, or vertebral point tenderness. No Meningismus. Chest/axilla: Normal chest wall appearance and motion. Nontender with no deformity. No lesions are appreciated. Cardiovascular: Regular rate and rhythm with a normal S1 and S2. No gallops, murmurs, or rubs. Normal PMI, no JVD. No pulse deficits. Respiratory: Lungs have equal breath sounds bilaterally, clear to auscultation and percussion. No rales, rhonchi or wheezes noted. No increased work of breathing, no retractions or nasal flaring. Abdomen/GI: Soft, non-tender, with normal bowel sounds. No distension or tympany. No guarding or rebound. No evidence of tenderness throughout. Back: No spinal tenderness. No costovertebral tenderness. Full range of motion. Skin: Warm, dry with normal turgor. Normal color with no rashes, no lesions, and no evidence of cellulitis. MS/ Extremity: Pulses equal, no cyanosis. Neurovascular intact. Full, normal range of motion. Neuro: Awake and alert, GCS 15, oriented to person, place, time, and situation. Cranial nerves II-XII grossly intact. Motor strength 5/5 in all extremities. Sensory grossly intact. Cerebellar exam normal. Normal gait. Vital Signs: 00:25 BP 146 / 84; Pulse 72; Resp 19; Temp 98.8; Pulse Ox 100% ; Weight 110.68 kg; Height 5 rr5 ft. 6 in. (167.64 cm); Pain 4/10; 01:00 BP 157 / 99; Pulse 75; Resp 19; Pulse Ox 99% ; rr5 02:00 BP 148 / 83; Pulse 68; Resp 17; Pulse Ox 99% ; rr5 02:30 BP 149 / 80; Pulse 76; Resp 17; Pulse Ox 100% ; rr5 03:00 BP 141 / 92; Pulse 75; Resp 17; Pulse Ox 100% ; rr5 03:30 BP 141 / 82; Pulse 82; Resp 19; Pulse Ox 99% ; Pain 10/10; rr5 04:30 BP 125 / 84; Pulse 70; Resp 17; Pulse Ox 98% ; rr5 00:25 Body Mass Index 39.38 (110.68 kg, 167.64 cm) rr5 MDM: 00:21 Patient medically screened. jr8 02:32 Data reviewed: vital signs, nurses notes, lab test result(s), EKG, radiologic studies, jr8 plain films, and as a result, I will admit patient. Data interpreted: Pulse oximetry: on room air is 100 %. Interpretation: normal. Counseling: I had a detailed discussion with the patient and/or guardian regarding: the historical points, exam findings, and any diagnostic results supporting the discharge/admit diagnosis, lab results, radiology results, the need for further work-up and treatment in the hospital. ED course: Patient feeling better but still with pain after nitro and morphine. 05/27 00:43 Order name: Basic Metabolic Panel; Complete Time: :05/27 00:43 Order name: CBC with Diff; Complete Time: 05/27 00:43 Order name: LFT's; Complete Time: 05/27 00:43 Order name: Magnesium; Complete Time: 01:22 8 05/27 00:43 Order name: NT PRO-BNP; Complete Time: :22 8 05/27 00:43 Order name: PT-INR; Complete Time: :22 8 05/27 00:43 Order name: Troponin (emerg Dept Use Only); Complete Time: 01:22 8 05/27 00:43 Order name: XRAY Chest (1 view); Complete Time: 15:48 8 05/27 02:53 Order name: Lipid Profile EDPA 05/27 02:53 Order name: Lipid Profile; Complete Time: 15:48 EDPA 05/27 02:53 Order name: Troponin I EDPA 05/27 02:53 Order name: Troponin I; Complete Time: 15:48 EDPA 05/27 02:53 Order name: Troponin I EDPA 05/27 06:06 Order name: Urinalysis; Complete Time: 06:52 EDPA 05/27 00:43 Order name: EKG; Complete Time: 00:44 8 05/27 00:43 Order name: Cardiac monitoring; Complete Time: 01:43 8 05/27 00:43 Order name: EKG - Nurse/Tech; Complete Time: 01:43 8 05/27 00:43 Order name: IV Saline Lock; Complete Time: 01:43 8 05/27 00:43 Order name: Labs collected and sent; Complete Time: 01:43 8 05/27 02:53 Order name: CONS Physician Consult EDPA 05/27 02:53 Order name: Heart Healthy EDPA 05/27 02:53 Order name: Echo with Doppler EDPA 05/27 02:53 Order name: EKG Electrocardiogram EDPA 05/27 02:53 Order name: EKG Electrocardiogram EDPA 05/27 03:37 Order name: EKG; Complete Time: 03:37 fc 05/27 00:43 Order name: O2 Per Protocol; Complete Time: :43 8 05/27 00:43 Order name: O2 Sat Monitoring; Complete Time: 01:44 05/27 03:37 Order name: EKG - Nurse/Tech; Complete Time: 03:38 fc Administered Medications: 01:00 Drug: Zofran 4 mg Route: IVP; Site: left forearm; rr5 03:46 Follow up: Response: No adverse reaction rr5 01:02 Drug: morphine 4 mg Route: IVP; Site: left forearm; rr5 03:46 Follow up: Response: No adverse reaction rr5 02:00 Drug: Nitroglycerin 0.4 mg {Note: chest pain 8/10. .} Route: Sublingual; rr5 03:46 Follow up: Response: No adverse reaction rr5 03:35 Drug: Nitroglycerin 0.4 mg Route: Sublingual; rr5 04:42 Follow up: Response: No adverse reaction rr5 03:40 Drug: amLODIPine 5 mg Route: PO; rr5 04:41 Follow up: Response: No adverse reaction rr5 Disposition: 22:36 Co-signature as Attending Physician, Sherwin Marsh MD I agree with the assessment and 4 plan of care. Disposition: 05/27/18 02:34 Hospitalization ordered by Mariola Romero for Observation. Preliminary diagnosis is Chest pain, unspecified. - Bed requested for Telemetry/MedSurg (observation). - Status is Observation. hj - Condition is Stable. - Problem is new. - Symptoms have improved. UTI on Admission? No Signatures: Dispatcher [employer] EDMS Deborah Syed RN RN fc Vj Suero PA PA jr8 Yonatan Becerra RN RN Tao Foley MD MD ps1 Wadley, Terrence, MD MD 4 Jagdish Nichols mw2 Kenneth Kimbrough, RN RN rr5 Corrections: (The following items were deleted from the chart) 04:44 02:34 Hospitalization Ordered by Mariola Romero MD for Observation. Preliminary fc diagnosis is Chest pain, unspecified. Bed requested for Telemetry/MedSurg (observation). Status is Observation. Condition is Stable. Problem is new. Symptoms have improved. UTI on Admission? No. jr8 06:16 04:44 05/27/2018 02:34 Hospitalization Ordered by Mariola Romero MD for Observation. mw2 Preliminary diagnosis is Chest pain, unspecified. Bed requested for [facility] ER HOLD. Status is Observation. Condition is Stable. Problem is new. Symptoms have improved. UTI on Admission? No. fc 08:10 06:16 05/27/2018 02:34 Hospitalization Ordered by Mariola Romero MD for Observation. hj Preliminary diagnosis is Chest pain, unspecified. Bed requested for Telemetry/MedSurg (observation). Status is Observation. Condition is Stable. Problem is new. Symptoms have improved. UTI on Admission? No. mw2
[2018-05-27] MEDS ORDERED: ALPRAZOLAM 0.25 MG TABLET PO PRN (02:48)
[2018-05-27] MEDS ORDERED: ACETAMINOPHEN 500 MG TAB PO PRN (02:48)
[2018-05-27] MEDS ORDERED: AMLODIPINE 5 MG TAB ONE (03:50)
[2018-05-27] MEDS: MORPHINE 4 MG/ML SYR IV PRN ×2 (04:15→08:19)
[2018-05-27 06:00] LABS: Urine Appearance CLEAR; Urine Bilirubin NEGATIVE (NEG); Urine Blood NEGATIVE (NEG); Urine Color YELLOW; Urine Glucose NEGATIVE (NEG); Urine Protein NEGATIVE (NEG); Urine Specific Gravity 1.015 (1.005-1.030); Urine pH 6.5 (5.0-7.0)
[2018-05-27 06:05] LABS: Urine Microscopic Reflex NO UMIC
[2018-05-27] MEDS ORDERED: PANTOPRAZOLE 40MG TABLET PO SCH (06:30)
[2018-05-27] MEDS ORDERED: PANTOPRAZOLE 40 MG INJ ONE (06:33)
--- NOTE | 2018-05-27 06:46 | EKG ---
Test Date: 2018-05-27 Test Time: 00:27:40 Java Tech: [place] MEASUREMENT RESULTS: Intervals: Rate: 80 AK: 144 QRSD: 84 QT: 354 QTc: 408 [place]: P: 18 AK: 144 QRS: -40 T: 4 INTERPRETIVE STATEMENTS: Normal sinus rhythm Left axis deviation Abnormal ECG Compared to ECG 05/09/2018 18:32:39 No significant changes Electronically Signed On 05-27-18 06:46:07 CRAB BUTCHER by Sebastian Sung
[2018-05-27 07:06] LABS: HDL Cholesterol 32 mg/dL (40-60); LDL Cholesterol, Calculated 108 (<130); Troponin I < 0.02 ng/mL (0.0-0.045)
--- NOTE | 2018-05-27 07:24 | P.HP ---
Certification for Inpatient Patient admitted to: Observation With expected LOS: <2 Midnights Patient will require the following post-hospital care: None Practitioner: I am a practitioner with admitting privileges, knowledge of patient current condition, hospital course, and medical plan of care. Services: Services provided to patient in accordance with Admission requirements found in Title 42 Section 412.3 of the Code of Federal Regulations Patient History Date of Service: 05/27/18 Reason for admission: Chest pain rule out acute coronary syndrome History of Present Illness: Patient is a 47-year-old gentleman came into the hospital with chest discomfort. Pain was mainly in the sternal region which radiate down his left arm. Patient has had shortness of breath and lightheadedness. He ,came into the emergency room for further evaluation. In the ER, he had troponins which are negative. He was here about 1-2 weeks ago for similar complaints. He had to leave because he states that his mother was in the hospital with a stroke in his sister ended up having a stroke as well. There were recently discharge from the hospital so he came into the hospital for further evaluation of his chest pain. Patient does have multiple risk factors. He will be evaluated with a stress test, and if it is okay then he should be stable for discharge home. His chest x-ray is negative. Labs are unremarkable. It could be GI related. This could be worked up further as an outpatient. Allergies aspirin Allergy (Verified 05/09/18 22:58) Itching iodine Allergy (Verified 05/09/18 22:58) Anaphylaxis ropinirole HCl [From Requip] Allergy (Verified 05/09/18 22:58) Anaphylaxis Iodine-Iodine Containing Allergy (Uncoded 05/09/18 22:58) Unknown Home Medications: Amlodipine [Norvasc*] 5 mg PO DAILY 05/09/18 Empagliflozin [Jardiance] 10 mg PO DAILY 05/09/18 Metformin ER [Glucophage ER*] 1,000 mg PO BID 05/09/18 Pregabalin [Lyrica*] 200 mg PO TID 05/09/18 Promethazine HCl 25 mg pe PO Q6HP PRN 05/09/18 Rosuvastatin [Crestor*] 10 mg PO BEDTIME 05/09/18 Sertraline [Zoloft*] 50 mg PO BEDTIME 05/09/18 Trazodone [Desyrel*] 50 mg PO BEDTIME 05/09/18 Clopidogrel Bisulfate [Plavix] 75 mg PO DAILY #30 tablet 05/10/18 Pantoprazole [Protonix Tab*] 40 mg PO DAILYAC #30 tab 05/10/18 - Past Medical/Surgical History Has patient received pneumonia vaccine in the past: Yes Diabetic: Yes -: 2001 staph? via pt -: RLS -: NIDDM -: CVA -: HTN -: Pneumoia -: lupus -: disc degeneration -: asthma -: intestinal polyps -: hyperlipidemia -: 27 h/o back surgery 2001 last 2006 -: galbladder removed 2009 -: heart cath 2013 -: spinal cord stimulator - Family History Father Medical History: Hypertension, Diabetes, Cancer Mother Medical History: Hypertension, Diabetes, Cancer Brother Medical History: Hypertension, Diabetes, Cancer Sister Medical History: Hypertension, Diabetes, Cancer - Social History Smoking Status: Unknown if ever smoked Alcohol use: No CD- Drugs: No Caffeine use: No Place of Residence: Home Review of Systems 10-point ROS is otherwise unremarkable Physical Examination - Vital Signs Temperature: 99.5 F Blood Pressure: 125/84 Pulse: 75 Respirations: 16 Pulse Ox (%): 99 - Physical Exam General: Alert, In no apparent distress, Oriented x3 HEENT: Atraumatic, PERRLA, Mucous membr. moist/pink, EOMI, Sclerae nonicteric Neck: Supple, 2+ carotid pulse no bruit, No LAD, Without JVD or thyroid abnormality Respiratory: Clear to auscultation bilaterally, Normal air movement Cardiovascular: Regular rate/rhythm, Normal S1 S2, No murmurs Gastrointestinal: Normal bowel sounds, Soft and benign, Non-distended, No tenderness Musculoskeletal: No clubbing, No swelling, No tenderness Integumentary: No rashes Neurological: Normal gait, Normal speech, Normal strength at 5/5 x4 extr, Normal tone, Normal affect Lymphatics: No axilla or inguinal lymphadenopathy - Studies Laboratory Data (last 24 hrs) 05/27/18 00:50: PT 12.0, INR 1.02 05/27/18 00:50: WBC 11.5 H, Hgb 15.7, Hct 46.2, Plt Count 152 05/27/18 00:50: Sodium 139, Potassium 3.7, BUN 12, Creatinine 0.87, Glucose 203 H, Magnesium 2.1, Total Bilirubin 0.3, AST 24, ALT 30, Alkaline Phosphatase 93 Assessment & Plan - Problems (Diagnosis) (1) Chest pain, rule out acute myocardial infarction Current Visit: Yes Status: Acute (2) Diabetes mellitus Current Visit: No Status: Acute Qualifiers: Diabetes mellitus type: type 2 Diabetes mellitus senior living insulin use: 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 Serial troponins and EKG 2. Cardiology consultation 3. Stress test 4. Anti-platelet therapy, anti coagulation, beta-sary, statin, and O2 as needed 5. IV morphine for pain 6. Nitro p.r.n. Discharge Plan: Home Plan to discharge in: 24 Hours - Advance Directives Does patient have a Living Will: No Does patient have a Durable POA for Healthcare: No - Code Status/Comfort Care Code Status Assessed: Yes Code Status: Full Code Critical Care: No Time Spent Managing PTS Care (In Minutes): 50
[2018-05-27] MEDS ORDERED: REGADENOSON 0.4 MG/5 ML SYR IV ONE (07:58)
--- NOTE | 2018-05-27 08:10 | RAD REPORT ---
EXAM DESCRIPTION: RAD - Chest Single View - 05/27/2018 1:12 am CLINICAL HISTORY: CHEST PAIN Chest pain. COMPARISON: Chest Single View dated 05/09/2018; CHEST SINGLE VIEW dated 05/28/2014; CHEST PA AND LAT 2 VIEW dated 05/16/2014; CHEST SINGLE VIEW dated 04/06/2014 FINDINGS: Portable technique limits examination quality. The lungs are grossly clear. The heart is upper limit of normal in size. No displaced fractures. IMPRESSION: No acute intrathoracic process suspected.
[2018-05-27] MEDS ORDERED: ASPIRIN EC 81 MG TAB PO SCH (09:00)
[2018-05-27] MEDS ORDERED: CLOPIDOGREL 75 MG TABLET PO SCH (09:00)
[2018-05-27] MEDS ORDERED: HOME MED 1 EA UNK (Empagliflozin [Jardiance] 10 MG) PO SCH (09:00)
[2018-05-27] MEDS ORDERED: ENOXAPARIN 40 MG/0.4 ML SQ SCH (09:00)
[2018-05-27] MEDS ORDERED: PREGABALIN 50 MG CAP PO SCH (09:00)
[2018-05-27] MEDS ORDERED: AMLODIPINE 5 MG TAB PO SCH (09:00)
[2018-05-27] MEDS ORDERED: METOPROLOL TAR 50 MG TAB PO SCH (09:00)
[2018-05-27] MEDS ORDERED: METFORMIN ER 500 MG TAB PO SCH (09:00)
[2018-05-27 09:10] VITALS: BP 134/81; TEMP 97.8
[2018-05-27 09:57] VITALS: BMI 39.2
--- NOTE | 2018-05-27 12:27 | EKG ---
Test Date: 2018-05-27 Test Time: 03:35:48 Designer Writer: RR MEASUREMENT RESULTS: Intervals: Rate: 68 NM: 124 QRSD: 80 QT: 384 QTc: 408 [place]: P: 12 NM: 124 QRS: -25 T: 24 INTERPRETIVE STATEMENTS: Normal sinus rhythm with sinus arrhythmia Normal ECG Compared to ECG 05/27/2018 00:27:40 Left-axis deviation no longer present Electronically Signed On 05-27-18 12:25:39 ARCH SUPPORT TECHNICIAN by Santosh Sharma
[2018-05-27 12:46] VITALS: O2SAT 97
[2018-05-27] MEDS ORDERED: TRAZODONE 50 MG TABLET PO SCH (21:00)
[2018-05-27] MEDS ORDERED: ROSUVASTATIN 10 MG TAB PO SCH (21:00)
[2018-05-27] MEDS ORDERED: SERTRALINE HCL 50 MG TAB PO SCH (21:00)
== END 2018-05-27 13:30 | disposition home or self-care (01) ==
LOC: ER 00:06 → ERHOLD 02:48 → 2ND 07:49
PROVIDERS: ADMIT Hospitalist; ATTEND Family Medicine
DX: R07.9 Chest pain, unspecified (principal); E11.9 Type 2 diabetes mellitus without complications; M32.9 Systemic lupus erythematosus, unspecified; E66.9 Obesity, unspecified; Z68.39 Body mass index [BMI] 39.0-39.9, adult; Z86.73 Personal history of transient ischemic attack (TIA), and cerebral infarction without residual deficits; Z88.6 Allergy status to analgesic agent
CPT/HCPCS: 36415; 71045; 80048; 80061; 80076; 81003; 82962; 83735; 83880; 84484 ×2; 85025; 85610; 93005 ×2; 96374; 96375; 99285; C9113; G0378 ×2; J1650; J2405; J2785

== ENCOUNTER 2018-05-29 07:50 | Emergency (ER) | payer OTHER ==
--- OUTSIDE RECORDS SUMMARY | 2018-05-29 07:53 | XMS REPORT | Clinical Summary ---
:1970 Author Organization [facility] Address [address] [place] [address] Care Team Providers Name Role Phone New ZacariasOVlad Primary Care Provider Allergies Active Allergy Reactions Severity Noted Date Comments Aspirin GI Bleeding High 10/11/2016 GI bleeding Atorvastatin Other (See Comments) Low 12/09/2017 Cough Iodine Hives 05/19/2007 IV iodine and iodine -Cardiac arrest Other 10/11/2016 Anesthesia: during Gallbladder and back surgery pt went into cardiac arrest. ([facility]). Ropinirole 10/11/2016 Hypotensive for 2 days. [...] 12/18/2017 Anesthesia Event Orthopedic Surgery Maryan Gudino, WINDOWS SERVER ENGINEER 12/18/2017 Surgery Orthopedic Surgery Abrahan, INSERTION PAIN PUMP MD Eliezer FENTANYL 12/18/2017 Hospital Encounter Orthopedic Surgery Eliezer Gauthier MD 11/20/2017 Pre-Admit Testing Pre-Admission Abrahan Preop testing Appointment Testing MD Eliezer (Primary Dx) 11/20/2017 Emergency Emergency Medicine Kennedy Rodgers Acute right-sided Mohammad, DO low back pain, with sciatica presence unspecified (Primary Dx) 10/29/2017 Emergency Emergency Medicine [place] Me[place]en, Shoulder strain, He Cortes, left, initial MD encounter (Primary Dx) 09/11/2017 Anesthesia Event Orthopedic Surgery Jacindasage, Deng Robert, OFFICE WORKFORCE PLANNER 09/11/2017 Surgery Orthopedic Surgery Abrahan, INTRATHECAL, FOR [...] MD Hair bilateral sciatica (Primary Dx) after 05/28/2017 Family History Medical History Relation Name Comments [...] Taken Blood Pressure 109/57 05/05/2018 10:44 AM FLAT SORTING MACHINE CLERK Pulse 64 05/05/2018 10:44 AM FLAT SORTING MACHINE CLERK Temperature 36.8 C (98.2 F) 05/05/2018 10:44 AM FLAT SORTING MACHINE CLERK Respiratory Rate 15 05/05/2018 10:44 AM FLAT SORTING MACHINE CLERK Oxygen Saturation 97% 05/05/2018 10:44 AM FLAT SORTING MACHINE CLERK Inhaled Oxygen Concentration - - Weight 111 kg (244 lb) 05/01/2018 12:14 PM FLAT SORTING MACHINE CLERK Height 167.6 cm (5' 6") 05/01/2018 12:14 PM FLAT SORTING MACHINE CLERK Body Mass Index 39.38 05/01/2018 12:14 PM FLAT SORTING MACHINE CLERK Plan of Treatment Health Maintenance Due Date Last Done Comments INFLUENZA VACCINE 12/11/2017 Implants Implanted Type Area Herbarium Curator Device Shelf Model / Identifier Expiration Serial Date / Lot Surescan Sensor Ipg - [id number] - [id number] IMPLANT N/A: N/A [employer] -NEUROLO 08/07/2017 [id number] / Implanted: Qty: 1 on 10/17/2016 by Eliezer Gauthier MD DEVICES GICAL [id number] / N/A Patient Galley Cook - [id number] IMPLANT N/A: N/A [employer]-NEUROLO [id number] / Implanted: Qty: 1 on 10/17/2016 by Eliezer Gauthier MD DEVICES GICAL / Charging System, W Sensor, Spinal Stimulation, Ea - [id number] [id number] IMPLANT N/A : N/A [employer]-NEUROLO [id number] / Implanted: Qty: 1 on 10/17/2016 by Eliezer Gauthier MD DEVICES GICAL / Kit Pckt Adptr For Scs 2x4in - [id number] Neurosurgical N/A: N/A [employer] 01/23/2020 [id number] / Implanted: Qty: 1 on 10/17/2016 by Eliezer Gauthier MD Implants NEUROMODULATION / [id number] Pump Infsn Synchromed Ii W/ Fltr Sut Loop Prgrmbl Rsvr 20ml - [id number] - [id number] Neurosurgical Right: [employer] 05/26/2019 [id number] / Implanted: Qty: 1 on 12/18/2017 by Eliezer Gauthier MD Implants Abdomen, NEUROMODULATION [id number] / Lower [id number] Quadrant Passer Cath W/ Rmvbl Hndl And Ppe Obtrtr 38cm Strl - [id number] Neurosurgical N/A: N/A [employer] [facility] - 10/10/2022 [id number] / Implanted: Qty: 1 on 12/18/2017 by Eliezer Gauthier MD Implants NEUROLOGICAL / [id number] Procedures Procedure Name Priority Date/Time Associated Comments Diagnosis ESTIMATED GFR Routine 05/04/2018 5:05 Results for this AM FLAT SORTING MACHINE CLERK procedure are in the results section. BASIC METABOLIC PANEL Routine 05/04/2018 5:05 Results for this AM FLAT SORTING MACHINE CLERK procedure are in the results section. HC COMPLETE BLD COUNT Routine 05/04/2018 5:05 Results for this W/AUTO DIFF AM FLAT SORTING MACHINE CLERK procedure are in the results section. POC GLUCOSE Routine 05/02/2018 5:46 Results for this PM FLAT SORTING MACHINE CLERK procedure are in the results section. POC GLUCOSE Routine 05/01/2018 5:01 Results for this PM FLAT SORTING MACHINE CLERK procedure are in the results section. URINALYSIS SCREEN AND Routine 05/01/2018 3:33 Results for this MICROSCOPY, WITH REFLEX PM FLAT SORTING MACHINE CLERK procedure are in TO CULTURE the results section. URINE CULTURE Routine 05/01/2018 3:33 Results for this PM FLAT SORTING MACHINE CLERK procedure are in the results section. CT HEAD WO CONTRAST STAT 05/01/2018 2:36 Results for this PM FLAT SORTING MACHINE CLERK procedure are in the results section. VENOUS BLOOD GAS STAT 05/01/2018 1:51 Results for this PM FLAT SORTING MACHINE CLERK procedure are in the results section. XR CHEST 1 VW PORTABLE STAT 05/01/2018 1:10 Results for this PM FLAT SORTING MACHINE CLERK procedure are in the results section. PROCALCITONIN Routine 05/01/2018 12:40 Results for this PM FLAT SORTING MACHINE CLERK procedure are in the results section. C-REACTIVE PROTEIN Routine 05/01/2018 12:40 Results for this PM FLAT SORTING MACHINE CLERK procedure are in the results section. ESTIMATED GFR STAT 05/01/2018 12:40 Results for this PM FLAT SORTING MACHINE CLERK procedure are in the results section. TROPONIN STAT 05/01/2018 12:40 Results for this PM FLAT SORTING MACHINE CLERK procedure are in the results section. CREATINE KINASE, TOTAL STAT 05/01/2018 12:40 Results for this (CPK) PM FLAT SORTING MACHINE CLERK procedure are in the results section. HC COMPLETE BLD COUNT STAT 05/01/2018 12:40 Results for this W/AUTO DIFF PM FLAT SORTING MACHINE CLERK procedure are in the results section. LIPASE LEVEL STAT 05/01/2018 12:40 Results for this PM FLAT SORTING MACHINE CLERK procedure are in the results section. HEPATIC FUNCTION PANEL STAT 05/01/2018 12:40 Results for this PM FLAT SORTING MACHINE CLERK procedure are in the results section. BASIC METABOLIC PANEL STAT 05/01/2018 12:40 Results for this PM FLAT SORTING MACHINE CLERK procedure are in the results section. RESPIRATORY PATHOGEN Routine 05/01/2018 12:40 Results for this PANEL PM FLAT SORTING MACHINE CLERK procedure are in the results section. INFLUENZA ANTIGEN TEST, Routine 05/01/2018 12:40 Results for this REFLEX NEGATIVE TO RPP PM FLAT SORTING MACHINE CLERK procedure are in the results section. ECG ED PRELIMINARY Routine 05/01/2018 12:19 Results for this INTERPRETATION PM FLAT SORTING MACHINE CLERK procedure are in the results section. ECG 12-LEAD STAT 05/01/2018 12:18 Results for this PM FLAT SORTING MACHINE CLERK procedure are in the results section. POC GLUCOSE Routine 05/01/2018 12:13 Results for this PM FLAT SORTING MACHINE CLERK procedure are in the results section. XR [...] procedure are in the results section. CT CRITICAL CARE, E/M Routine 12/21/2017 1:05 Results [...] procedure are in the results section. CT AN ELECTIVE Routine 12/18/2017 11:42 ENDOTRACHEAL AIRWAY AM CDT Procedure Note - Omega Jo CRNA - 12/18/2017 11:42 AM CDT Airway Date/Time: 12/18/2017 11:23 AM Performed by: OMEGA JO Authorized by: ERGINA LATHAM Location: [place] Urgency: Elective Difficult Airway: No Resident/OFFICE WORKFORCE PLANNER/AA: OMEGA JO Performed by: resident/OFFICE WORKFORCE PLANNER/AA Preoxygenated with 100% O2: Yes C-spine Precautions [...] section. ZZESTIMATED GFR Routine 06/12/2017 3:25 AM FLAT SORTING MACHINE CLERK COMPREHENSIVE METABOLIC Routine 06/12/2017 3:25 AM FLAT SORTING MACHINE CLERK Results for this PANEL procedure are in the results section. URINALYSIS SCREEN AND STAT 06/12/2017 2:50 AM FLAT SORTING MACHINE CLERK Results for this MICROSCOPY, WITH REFLEX TO procedure are in the CULTURE results section. URINE CULTURE STAT 06/12/2017 2:50 AM FLAT SORTING MACHINE CLERK HC COMPLETE BLD COUNT W/AUTO STAT 06/12/2017 2:45 AM FLAT SORTING MACHINE CLERK Results for this DIFF procedure are in the results section. after 05/28/2017 Results Estimated GFR (05/04/2018 5:05 AM FLAT SORTING MACHINE CLERK)Only the most recent of2 resultswithin the time period is included. Estimated GFR 89 mL/min/1.73 m2 [facility] CatergoryUnitsInterpretation G1 >=90 Normal or high G2 60-89Mildly decreased M5s68-10Xalyig to moderately decreased L9i44-42Dpkqlspojp to severely decreased G4 15-29Severely decreased G5 <15Kidney failure The eGFR was calculated using the Chronic Kidney Disease Epidemiology Collaboration (CKD-EPI) equation. Interpretation is based on recommendations of the National Kidney Foundation-Kidney Disease Outcomes Quality Initiative (NKF-KDOQI) published in 2014. Specimen Plasma specimen Performing Organization Address City/State/Zipcode Phone Number [facility] DEPARTMENT OF PATHOLOGY AND [address] [place] [address] GENOMIC MEDICINE [facility] [address] [place], [place] [id number] [place] [address] CBC with platelet and differential (05/04/2018 5:05 AM FLAT SORTING MACHINE CLERK)Only the most recent of11 resultswithin the time period is included. WBC 9.20 4.50 - 11.00 k/uL [facility] RBC 4.68 4.40 - 6.00 m/uL [facility] HGB 13.8 (L) 14.0 - 18.0 g/dL [facility] HCT 42.6 41.0 - 51.0 % [facility] MCV 91.0 82.0 - 100.0 fL [facility] MCH 29.5 27.0 - 34.0 pg [facility] MCHC 32.4 31.0 - 37.0 g/dL [facility] RDW - SD 45.8 37.0 - 55.0 fL [facility] MPV 12.6 8.8 - 13.2 fL [facility] Platelet count 134 (L) 150 - 400 k/uL [facility] Nucleated RBC 0.00 /100 WBC [facility] Neutrophils 54.7 39.0 - 69.0 % [facility] Lymphocytes 33.8 25.0 - 45.0 % [facility] Monocytes 6.2 0.0 - 10.0 % [facility] Eosinophils 3.6 0.0 - 5.0 % [facility] Basophils 0.5 0.0 - 1.0 % [facility] Specimen Blood Performing Organization Address City/[facility] Phone Number [facility] DEPARTMENT PATHOLOGY AND [address] [place] [address] Basic metabolic panel (05/04/2018 5:05 AM FLAT SORTING MACHINE CLERK)Only the most recent of4 resultswithin the time period is included. Sodium 142 135 - 148 mEq/L [facility] Potassium 4.0 3.5 - 5.0 mEq/L [facility] Chloride 108 98 - 112 mEq/L [facility] CO2 25 24 - 31 mEq/L [facility] Anion gap 9@ANIO 7 - 15 mEq/L [facility] BUN 13 6 - 20 mg/dL [facility] Creatinine 1.00 0.70 - 1.20 mg/dL [facility] Glucose 120 (H) 65 - 99 mg/dL [facility] Calcium 8.9 8.3 - 10.2 mg/dL [facility] Specimen Plasma specimen Performing Organization Address [facility] Phone Number [facility] DEPARTMENT PATHOLOGY AND [address] [place] [address] POC glucose (05/02/2018 5:46 PM FLAT SORTING MACHINE CLERK)Only the most recent of14 resultswithin the time period is included. POC glucose 119 (H) 65 - 99 mg/dL [facility] Comment: HOSPITAL Meter ID: [id number] Act Tutor: Yuval Barrientos Performing Organization Address City/[facility] Phone Number [facility] DEPARTMENT PATHOLOGY AND [address] [place] [address] [place] Urinalysis screen and microscopy, with reflex to culture (05/01/2018 3:33 PM FLAT SORTING MACHINE CLERK)Only the most recent of4 resultswithin the time period is included. Specimen site Clean catch [facility] Color, UA Yellow [facility] Appearance, UA Clear [facility] Specific gravity, UA 1.028 1.001 - 1.035 [facility] pH, UA 5.0 5.0 - 8.5 [facility] Protein, UA Negative Negative [facility] Glucose, UA 3+ (A) Negative [facility] Ketones, UA Negative Negative [facility] Bilirubin, UA Negative Negative [facility] Blood, UA Negative Negative [facility] Nitrite, UA Negative Negative [facility] Urobilinogen, UA 4.0 (A) <2.0 [facility] Leukocyte esterase, UA Negative Negative [facility] Epithelial cells, UA Few /HPF [facility] WBC, UA 0-5 0 - 1 /HPF [facility] RBC, UA 0-5 0 - 5 /HPF [facility] Bacteria, UA None seen None seen [facility] Yeast, UA None seen [facility] Yeast with pseudohyphae, UA None seen [facility] Specimen Urine Performing Organization Address City/[facility] Phone Number [facility] DEPARTMENT OF PATHOLOGY AND [address] [place] [address] Urine culture (05/01/2018 3:33 PM FLAT SORTING MACHINE CLERK)Only the most recent of4 resultswithin the time period is included. Urine culture SEE COMMENTComment: Bacteriuria [facility] screen negative. [facility] Specimen Urine Performing Organization Address City/[facility] Cent[facility]ode Phone Number [facility] DEPARTMENT OF PATHOLOGY AND [address] [place] [address] [place] [address] GENOMIC MEDICINE [address] [place] [address] [facility] CT Head Wo Contrast (05/01/2018 2:36 PM FLAT SORTING MACHINE CLERK)Only the most recent of3 resultswithin the time [...] abnormality. IMPRESSION: No acute intracranial abnormality identified. [id number] Procedure Note Hm Interface, Radiology Results Incoming - 05/01/2018 2:42 PM FLAT SORTING MACHINE CLERK EXAMINATION: CT HEAD WO CONTRAST CLINICAL HISTORY: [...] abnormality. IMPRESSION: No acute intracranial abnormality identified. [facility]-[id number] Performing Organization Address City/State/Zipcode Phone Number [facility] [address] [place] [address] Venous blood gas (05/01/2018 1:51 PM FLAT SORTING MACHINE CLERK) pH, venous 7.36 7.32 - 7.42 [facility] pCO2, venous 43 (L) 45 - 51 mmHg [facility] pO2, venous 61 (H) 25 - 40 mmHg [facility] Base excess, venous -2 -2 - 2 meq/L [facility] O2 saturation, venous 92 (H) 40 - 70 % [facility] Bicarbonate, venous 23.1 21.0 - 28.0 mmol/L [facility] FiO2, inspired O2% Unknown % [facility] Specimen Blood Performing Organization Address City/[facility] Phone Number [facility] DEPARTMENT OF PATHOLOGY AND [address] [place] [address] GENOMIC MEDICINE [facility] [address] [place] [address] [employer] XR Chest 1 Vw Portable (05/01/2018 1:10 PM FLAT SORTING MACHINE CLERK) Narrative Performed At EXAMINATION:XR CHEST 1 VW PORTABLE [facility] CLINICAL HISTORY:weaknessfatigue COMPARISON:Left rib series from 01/15/2018 [...] unchanged. Mild cardiomegaly. The bones are unremarkable. [facility]-[id number] Procedure Note Interface, Radiology Results Incoming - 05/01/2018 1:27 PM FLAT SORTING MACHINE CLERK EXAMINATION: XR CHEST 1 VW PORTABLE CLINICAL [...] unchanged. Mild cardiomegaly. The bones are unremarkable. [facility]-[id number] Performing Organization Address City/State/Zipcode Phone Number [facility] [address] [place] [address] Respiratory pathogen panel (05/01/2018 12:40 PM FLAT SORTING MACHINE CLERK) Respiratory pathogen Negative for all pathogens tested: [facility] Negative for Adenovirus [facility] [employer] [facility] [facility] Negative for Coronavirus HKU1 Negative for Coronavirus [...] Left Performing Organization Address City/State/Zipcode Phone Number [facility] DEPARTMENT OF PATHOLOGY AND [address] [place] [address] GENOMIC MEDICINE [address] [address] Procalcitonin (05/01/2018 12:40 PM FLAT SORTING MACHINE CLERK) Procalcitonin 0.65 (H) <=0.07 ng/mL [facility] Comment: INTERPRETIVE INFORMATION: Procalcitonin Effective November 11, 2017, this test is performed by the [employer] Procalcitonin assay. A correction has been [...] of the individual patient. Performed at: [facility] [address] [facility] [address] Specimen Serum Performing Organization Address City/[facility]/Zipcode Phone Number [facility] [address] [place] [address] [facility] [address] [place] [address] Influenza antigen test, reflex negative to RPP (05/01/2018 12:40 PM FLAT SORTING MACHINE CLERK) Influenza antigen Negative for Influenza A/B antigen. [facility] Comment: HOSPITAL Specimen Information Specimen Source: Nares Specimen Site: Left Specimen Nares - Left Performing Organization Address [facility] Phone Number [facility] DEPARTMENT OF PATHOLOGY AND [address] [place] [address] Troponin (05/01/2018 12:40 PM FLAT SORTING MACHINE CLERK)Only the most recent of6 resultswithin the time period is included. Troponin <0.300 0.000 - 0.300 ng/mL [facility] Comment: HOSPITAL 0.30 - 1.49 ng/mlMay indicate increased risk of acute coronary syndrome. >=1.5 ng/mlConsistent with acute myocardial infarction. The diagnostic value of a single normal or non-diagnostic result is questionable.Serial samples at 2-6 hour intervals are required to rule out acute myocardial injury. Specimen Plasma specimen Performing Organization Address [facility] Phone Number [facility] DEPARTMENT OF PATHOLOGY AND [address] [place] [address] [address] C-reactive protein (05/01/2018 12:40 PM FLAT SORTING MACHINE CLERK)Only the most recent of2 resultswithin the time period is included. CRP 1.21 (H) 0.00 - 0.50 mg/dL [facility] Specimen Plasma specimen Performing Organization Address [facility]/Zipcode Phone Number [facility] DEPARTMENT OF PATHOLOGY AND [address] [place], [place] [address] [address] [place] [address] Lipase level (05/01/2018 12:40 PM FLAT SORTING MACHINE CLERK)Only the most recent of5 resultswithin the time period is included. Lipase 39 13 - 60 U/L [facility] Specimen Plasma specimen Performing Organization Address [facility] Phone Number [facility] DEPARTMENT OF PATHOLOGY AND [address] [place] [id number] [place] [address] Creatine kinase, total (CPK) (05/01/2018 12:40 PM FLAT SORTING MACHINE CLERK)Only the most recent of3 resultswithin the time period is included. Creatine kinase 54 39 - 308 U/L [facility] Specimen Plasma specimen Performing Organization Address [facility] Phone Number [facility] DEPARTMENT OF PATHOLOGY AND [address] [place] [id number] [place] [address] Hepatic function panel (05/01/2018 12:40 PM FLAT SORTING MACHINE CLERK)Only the most recent of3 resultswithin the time period is included. Albumin 4.1 3.5 - 5.0 g/dL [facility] Total bilirubin 0.6 0.0 - 1.2 mg/dL [facility] Bilirubin direct <0.1 0.0 - 0.3 mg/dL [facility] Alkaline phosphatase 121 40 - 129 U/L [facility] Protein 8.1 6.3 - 8.3 g/dL [facility] Comment: HOSPITAL Jean 4.6-7.0 g/dL 1 week 4.4-7.6 g/dL 7 months-1year5.1-7.3 g/dL 1-2 years5.6-7.5 g/dL >3 years6.0-8.0 g/dL 18-150 6.3-8.3 g/dL ALT 27 5 - 50 U/L [facility] AST 40 10 - 50 U/L [facility] Specimen Plasma specimen Performing Organization Address City/State/Zipcode Phone Number [facility] DEPARTMENT OF PATHOLOGY AND [address] [place] [address] GENOMIC MEDICINE [facility] [address] [place] [address] [employer] [facility] [facility] ECG ED Preliminary Interpretation - Not an Order (05/01/2018 12:19 PM FLAT SORTING MACHINE CLERK)Only the most recent of5 resultswithin the time period is included. Narrative Performed At Christiano Resendez MD 05/01/20182:23 PM ECG ED Preliminary Interpretation - Not an Order Performed by: Christiano Resendez MD Authorized by: Christiano Resendez MD ECG reviewed by ED Physician in the absence of a drawing supervisor: yes Previous ECG: Previous ECG:Compared to current Similarity:No change Interpretation: Interpretation: normal Rate: ECG rate:68 ECG rate assessment: normal Rhythm: Rhythm: sinus rhythm Ectopy: Ectopy: none QRS: QRS axis:Left QRS intervals:Normal Conduction: Conduction: normal ST segments: ST segments:Normal T waves: T waves: normal Comments: Read at 12:18 pm ECG 12 lead (05/01/2018 12:18 PM FLAT SORTING MACHINE CLERK)Only the most recent of6 resultswithin the time period is included. Ventricular rate 68 [facility] Atrial rate [address] interval 128 [facility] QRSD interval 84 [...] found- Narrative Performed At Performing Organization Address City/[facility]/Zipcode Phone Number [facility] MUSE [address] [place] [address] XR Forearm 2 Vw Right (02/07/2018 2:37 AM CDT)Only the most recent of2 resultswithin the time period is included. Narrative Performed At XR FOREARM 2 VW RIGHT [facility] CLINICAL INDICATION:Fractureforearm COMPARISON:None. IMPRESSION: There is no acute fracture or dislocation. There are mild degenerative changes at the base of the thumb. Osseous mineralization is normal. [facility]-[id number] Procedure Note Interface, Radiology Results Incoming - 02/07/2018 2:45 AM CDT XR FOREARM 2 VW RIGHT CLINICAL INDICATION: Fracture forearm COMPARISON: None. IMPRESSION: There is no acute fracture or dislocation. There are mild degenerative changes at the base of the thumb. Osseous mineralization is normal. [facility]-[id number] Performing Organization Address [facility] Phone Number [facility] [address] [place] [address] XR Hand 3+ Vw Right (02/07/2018 2:37 AM CDT) Narrative Performed At XR HAND 3VW RIGHT [facility] CLINICAL INDICATION:Fracturehand COMPARISON:None. IMPRESSION: There is no acute fracture or dislocation. There are mild degenerative changes of the base of the thumb. Osseous mineralization is normal. [facility]-[id number] Procedure Note Interface, Radiology Results Incoming - 02/07/2018 2:42 AM CDT XR HAND 3 VW RIGHT CLINICAL INDICATION: Fracture hand COMPARISON: None. IMPRESSION: There is no acute fracture or dislocation. There are mild degenerative changes of the base of the thumb. Osseous mineralization is normal. [facility]-[id number] Performing Organization Address [facility] Phone Number [facility] [address] [place] [address] XR Ribs W Pa Chest Left (01/15/2018 [...] abnormality identified in the chest or leftribs. [facility]-[id number] Procedure Note Interface, Radiology Results Incoming - [...] identified in the chest or left ribs. [facility]-[id number] Performing Organization Address City/[facility]/[employer] Phone Number PATRICIA LOPEZ [address] [place] [address] Estimated GFR (01/15/2018 1:57 AM CDT)Only the most recent of9 resultswithin the time period is included. GFR Non Af Amer 72 mL/min/1.73 m2 [facility] DEPARTMENT OF PATHOLOGY AND [facility] MEDICINE GFR Af Amer 87 mL/min/1.73 m2 [facility] DEPARTMENT OF Comment: PATHOLOGY AND [facility] Chronic kidney disease: <60 mL/min/1.73m2 MEDICINE [...] Americans. Specimen Plasma specimen Performing Organization Address [facility] Phone Number [facility] DEPARTMENT OF PATHOLOGY AND [address] [place] [address] [place] [address] [facility] Partial thromboplastin time, activated (01/15/2018 1:57 AM CDT)Only the most recent of3 resultswithin the time period is included. PTT 35.1 23.0 - 36.0 sec [facility] DEPARTMENT OF Comment: PATHOLOGY AND [facility] PTT therapeutic range for unfractionated heparin is MEDICINE 61.0-112.0 seconds which corresponds to Anti-Xa 0.3-0.7 U/ml. Specimen Blood Performing Organization Address [facility] Phone Number [facility] DEPARTMENT OF PATHOLOGY AND [address] [place] [address] [place] [address] [facility] Prothrombin time with INR (01/15/2018 1:57 AM CDT)Only the most recent of3 resultswithin the time period is included. Prothrombin time 13.6 12.0 - 15.0 sec [facility] DEPARTMENT OF PATHOLOGY AND GENOMIC MEDICINE INR 1.0 [facility] DEPARTMENT OF Comment: PATHOLOGY AND GENOMIC The International Normalized Ratio (INR) is a therapeutic MEDICINE monitoring tool for patients who are stable on oral anticoagulant therapy. An INR of 2.0-3.0 is suggested for deep vein thrombosis/pulmonary embolism. Specimen Blood Performing Organization Address City/State/Zipcode Phone Number [facility] DEPARTMENT OF PATHOLOGY AND [address] [place] [address] [facility] MEDICINE CT Renal Stone Protocol (01/02/2018 [...] seen associated with the device or catheter. [facility]-[id number] Procedure Note Interface, Radiology Results Incoming - [...] seen associated with the device or catheter. [facility]-[id number] Performing Organization Address City/State/Zipcode Phone Number [facility] [address] [place] [address] Comprehensive metabolic panel (01/02/2018 10:40 PM CDT)Only the most recent of7 resultswithin the time period is included. Sodium 141 135 - 148 mEq/L [facility] DEPARTMENT OF PATHOLOGY AND GENOMIC MEDICINE Potassium 3.9 3.5 - 5.0 mEq/L [facility] DEPARTMENT OF PATHOLOGY AND GENOMIC MEDICINE Chloride 103 98 - 112 mEq/L [facility] DEPARTMENT OF PATHOLOGY AND GENOMIC MEDICINE CO2 26 24 - 31 mEq/L [facility] DEPARTMENT OF PATHOLOGY AND GENOMIC MEDICINE Anion gap 12@ANIO 7 - 15 mEq/L [facility] DEPARTMENT OF PATHOLOGY AND GENOMIC MEDICINE BUN 9 6 - 20 mg/dL [facility] DEPARTMENT OF PATHOLOGY AND GENOMIC MEDICINE Creatinine 1.2 0.7 - 1.2 mg/dL [facility] OF PATHOLOGY AND GENOMIC [facility] Glucose 203 (H) 65 - 99 mg/dL [facility] DEPARTMENT OF PATHOLOGY AND GENOMIC [facility] Calcium 8.6 8.3 - 10.2 mg/dL [facility] DEPARTMENT OF PATHOLOGY AND GENOMIC [facility] Protein 8.1 6.3 - 8.3 g/dL [facility] DEPARTMENT OF Comment: PATHOLOGY AND GENOMIC Jean 4.6-7.0 g/dL MEDICINE 1 week 4.4-7.6 g/dL 7 months-1year5.1-7.3 g/dL 1-2 years5.6-7.5 g/dL >3 years6.0-8.0 g/dL 18-150 6.3-8.3 g/dL Albumin 3.9 3.5 - 5.0 g/dL [facility] OF PATHOLOGY AND GENOMIC [facility] A/G ratio 0.9 0.7 - 3.8 [facility] DEPARTMENT OF PATHOLOGY AND GENOMIC [facility] Alkaline phosphatase 97 40 - 129 U/L [facility] DEPARTMENT OF PATHOLOGY AND GENOMIC MEDICINE AST 20 10 - 50 U/L [facility] DEPARTMENT OF PATHOLOGY AND GENOMIC MEDICINE ALT 11 5 - 50 U/L [facility] DEPARTMENT OF PATHOLOGY AND GENOMIC [facility] Total bilirubin 0.4 0.0 - 1.2 mg/dL [facility] DEPARTMENT OF PATHOLOGY AND GENOMIC [facility] Specimen Plasma specimen Performing Organization Address City/State/Zipcode Phone Number [facility] DEPARTMENT OF PATHOLOGY AND [address] [place] [address] [facility] [address] Abdomen Pelvis Wo Contrast (12/24/2017 8:21 [...] inguinal lymphadenopathy is identified. IMPRESSION: Unremarkable exam. [facility]-[id number] Procedure Note Interface, Radiology Results Incoming - [...] inguinal lymphadenopathy is identified. IMPRESSION: Unremarkable exam. [facility]-[id number] Performing Organization Address [facility] Phone Number [facility] [address] [place] [address] B natriuretic peptide (12/24/2017 8:08 PM CDT) BNP 17 0 - 100 pg/mL [facility] DEPARTMENT OF PATHOLOGY AND GENOMIC MEDICINE Specimen Blood Performing Organization Address [facility] Phone Number [facility] DEPARTMENT OF PATHOLOGY AND [address] [place] [address] GENOMIC [facility] Phosphorus level (12/21/2017 3:56 AM CDT) Phosphorus 3.1 2.4 - 4.5 mg/dL [facility] DEPARTMENT OF PATHOLOGY AND GENOMIC MEDICINE Specimen Plasma specimen Performing Organization Address [facility] Phone Number [facility] DEPARTMENT OF PATHOLOGY AND [address] [place] [address] GENOMIC [facility] Magnesium level (12/21/2017 3:56 AM CDT) Magnesium 1.8 1.6 - 2.6 mg/dL [facility] DEPARTMENT OF PATHOLOGY AND GENOMIC MEDICINE Specimen Plasma specimen Performing Organization Address [facility] Phone Number [facility] DEPARTMENT OF PATHOLOGY AND [address] [place] [address] [facility] MEDICINE CRITICAL CARE (12/21/2017 1:05 AM [...] No growth after 5 days of incubation. [facility] DEPARTMENT OF Comment: PATHOLOGY AND GENOMIC Specimen Information MEDICINE Specimen Source: Blood Specimen Site: Antecubital, left Specimen Blood - Antecubital, left Performing Organization Address City/[facility] Phone Number [facility] DEPARTMENT OF PATHOLOGY AND [address] [place] [address] GENOMIC MEDICINE Lactic acid level, SEPSIS - Now and repeat 2x every 3 hours (12/20/2017 9:20 PM CDT) Lactic acid 1.3 0.5 - 2.2 mmol/L [facility] DEPARTMENT OF PATHOLOGY AND GENOMIC MEDICINE Specimen Plasma specimen Performing Organization Address [facility] Phone Number [facility] DEPARTMENT OF PATHOLOGY AND [address] [place] [address] GENOMIC MEDICINE Sedimentation rate (12/20/2017 9:20 PM CDT) Sedimentation rate 38 (H) 0 - 10 mm/hr [facility] DEPARTMENT OF PATHOLOGY AND GENOMIC MEDICINE Specimen Blood Performing Organization Address [facility] Phone Number [facility] DEPARTMENT OF PATHOLOGY AND [address] [place] [address] [facility] MEDICINE OR [place] < 1 Hour [...] DOSAGE:41.57 mGy TECH: TS Performing Organization Address [facility] Phone Number [facility] [address] [place] [address] ECG Pre/Post Op (11/20/2017 4:45 PM CDT) Ventricular rate 74 [facility] Atrial [facility] [address] interval 138 [facility] QRSD interval 86 [facility] QT interval 364 [facility] QTC interval 404 [facility] P axis 1 15 [facility] QRS axis 1 -34 [facility] T wave axis 8 [facility] MUSE EKG impression Normal sinus rhythm-Left axis [facility] MUSE deviation-Abnormal ECG-In automated comparison with ECG of 24-AUG-2017 22:48,-No significant change was found- Performing Organization Address [facility] Phone Number [facility] MUSE [address] [place] [address] Hemoglobin A1c (11/20/2017 4:34 PM CDT) Hemoglobin A1C 7.9 (H) 4.0 - 5.6 % [facility] DEPARTMENT OF PATHOLOGY Comment: AND GENOMIC MEDICINE HbA1c cutoffs for diagnosing diabetes: 4.0% - 5.6%=normal 5.7% - 6.4%=increased risk for diabetes (prediabetes) >=6.5%=diabetes Goals for glycemic control (ADA 2016) < 7.0%Target for non adults with diabetes. More or less stringent targets may be appropriate for individual patients. <7.5% Target for Children and adolescents with type 1 diabetes. Specimen Blood Performing Organization Address [facility] Phone Number [facility] DEPARTMENT OF PATHOLOGY AND [address] [place] [phone] GENOMIC MEDICINE XR Shoulder 2+ Vw Left (10/29/2017 7:50 PM CDT) Narrative Performed At EXAMINATION:XR SHOULDER 2VW LEFT [facility] CLINICAL HISTORY:pain COMPARISON:None. IMPRESSION: No evidence of acute left shoulder fracture or dislocation. Soft tissues are unremarkable. [facility]-[id number] Procedure Note Interface, Radiology Results Incoming - 10/29/2017 8:18 PM CDT EXAMINATION: XR SHOULDER 2 VW LEFT CLINICAL HISTORY: pain COMPARISON: None. IMPRESSION: No evidence of acute left shoulder fracture or dislocation. Soft tissues are unremarkable. [facility]-[id number] Performing Organization Address [facility] Phone Number [facility] [address] [place] [address] XR Chest 2 Vw (10/29/2017 7:50 PM CDT)Only the most recent of2 resultswithin the time period is included. Narrative Performed At EXAMINATION: XR CHEST 2 VW [facility] CLINICAL HISTORY: SOBl shoulder pain r o ptx COMPARISON:08/24/2017 chest x-ray. IMPRESSION: The lungs are clear. No pleural effusion or pneumothorax. The cardiomediastinal silhouette is normal. No acute osseous abnormalities. [facility]-[id number] Procedure Note Interface, Radiology Results Incoming - 10/29/2017 8:18 PM CDT EXAMINATION: XR CHEST 2 VW CLINICAL HISTORY: SOB l shoulder pain r o ptx COMPARISON: 08/24/2017 chest x-ray. IMPRESSION: The lungs are clear. No pleural effusion or pneumothorax. The cardiomediastinal silhouette is normal. No acute osseous abnormalities. [facility]-[id number] Performing Organization Address [facility] Phone Number [facility] [address] [place] [address] CT Maxillofacial Wo Contrast (08/24/2017 10:32 PM [...] the left maxillary medial incisor is noted. [facility]-[id number] Procedure Note Hm Interface, Radiology Results Incoming [...] the left maxillary medial incisor is noted. [facility]-[id number] Performing Organization Address City/State/Zipcode Phone Number JESSICA [address] [place] [address] after 05/28/2017 Insurance Payer Benefit Plan / Group Subscriber ID Type Phone Address [facility] MEDICARE [facility] DUAL COMPLETE MCR xxxxxxxxx O Advance Directives Patient has advance care planning documents on file. For more information, please contact:Joshua Arciniega[address] [place] [address]
--- OUTSIDE RECORDS SUMMARY | 2018-05-29 07:54 | XMS REPORT ---
:1970 [facility] Address [address] [place] [address] Care Team Providers Name Role Phone NONE Primary Care Provider Unavailable Payers Payer Name Policy Type Policy Number Effective Date Expiration Date Problems This patient has no known problems. Allergies, Adverse Reactions, Alerts Allergy Name Allergy Status Severity Reaction(s) Onset Inactive Treating Comments Type Date Date Clinician iodine DA Active SV 2018-05 00:00:0 0 lisinopril DA Active [place] 2018-05 00:00:0 0 iodine DA Active [place] 2018-05 00:00:0 0 lorazepam DA Active [place] 2018-05 00:00:0 0 aspirin DA Active [place] 2018-05 00:00:0 0 ropinirole DA Active [place] 2018-05 00:00:0 0 lorazepam DA Active [place] 2018-02 00:00:0 0 lisinopril DA Active [place] 2017-12 00:00:0 0 iodine DA Active [place] 2017-12 00:00:0 0 aspirin DA Active [place] 2017-12 00:00:0 0 ropinirole DA Active [place] 2017-12 00:00:0 0 Medications This patient has no known medications. Encounters Start End Encounter Admission Attending Care Care Encounter Date/Time Date/Time Type Type Clinicians Facility Department ID 2017-07-31 2017-07-31 Emergency E [facility] [id number] 19:16:00 19:16:00
--- NOTE | 2018-05-29 08:07 | EDPHYS ---
Physician Documentation [facility] Name: Matti Juarez Age: 47 yrs Sex: Male : 1970 Arrival Date: 05/29/2018 Time: 07:52 Bed 13 Private MD: ED Physician Reji Valle HPI: 05/29 08:26 This 47 yrs old Male presents to ER via Ambulatory with complaints of snw Toothache. 08:26 The patient presents with broken tooth/teeth, pain, swelling. The problem is located in snw the lower right second molar (#31). Onset: The symptoms/episode began/occurred suddenly, yesterday, and became worse this morning. Duration: The symptoms are continuous, and are steadily getting worse. Associated signs and symptoms: Pertinent positives: anorexia, nausea, pain. Severity of symptoms: At their worst the symptoms were severe. The patient has experienced similar episodes in the past, multiple times. It is unknown whether or not the patient has recently seen a physician. Historical: - Allergies: 07:55 Aspirin; rb1 07:55 atorvastatin; rb1 07:55 Iodinated Contrast Media - IV Dye (cardiac arrest); rb1 07:55 Requip; rb1 07:55 SHELLFISH; rb1 07:55 Anesthesia; rb1 - Home Meds: 07:55 Lyrica Oral [Active]; metformin 1,000 mg Oral tab 1 tab 2 times per day [Active]; rb1 promethazine 25 mg Oral tab 1 tab every 6 hours [Active]; rosuvastatin 10 mg Oral tab 1 tab once daily [Active]; sertraline 50 mg Oral tab 1 tab once daily [Active]; trazodone 50 mg Oral tab [Active]; - PMHx: 07:55 cardiac arrest; Diabetes - NIDDM; heart catheterization; Hypertension; rb1 - PSHx: 07:55 spinal fusion; rb1 - Immunization history:: Adult Immunizations up to date. - Social history:: Smoking status: Patient/guardian denies using tobacco. - Ebola Screening: : Patient negative for fever greater than or equal to 101.5 degrees Fahrenheit, and additional compatible Ebola Virus Disease symptoms. ROS: 08:25 Constitutional: Negative for fever, chills, and weight loss, Eyes: Negative for injury, snw pain, redness, and discharge, Neck: Negative for injury, pain, and swelling, Cardiovascular: Negative for chest pain, palpitations, and edema, Respiratory: Negative for shortness of breath, cough, wheezing, and pleuritic chest pain, Back: Negative for injury and pain, : Negative for injury, bleeding, discharge, and swelling, MS/Extremity: Negative for injury and deformity, Skin: Negative for injury, rash, and discoloration, Neuro: Negative for headache, weakness, numbness, tingling, and seizure. 08:25 ENT: Positive for dental pain, Gum pain Teeth pain 08:25 Abdomen/GI: Positive for nausea and vomiting. Exam: 08:13 Head/Face: Normocephalic, atraumatic. Eyes: Pupils equal round and reactive to light, snw extra-ocular motions intact. Lids and lashes normal. Conjunctiva and sclera are non-icteric and not injected. Cornea within normal limits. Periorbital areas with no swelling, redness, or edema. Neck: Trachea midline, no thyromegaly or masses palpated, and no cervical lymphadenopathy. Supple, full range of motion without nuchal rigidity, or vertebral point tenderness. No Meningismus. Chest/axilla: Normal chest wall appearance and motion. Nontender with no deformity. No lesions are appreciated. Cardiovascular: Regular rate and rhythm with a normal S1 and S2. No gallops, murmurs, or rubs. Normal PMI, no JVD. No pulse deficits. Respiratory: Lungs have equal breath sounds bilaterally, clear to auscultation and percussion. No rales, rhonchi or wheezes noted. No increased work of breathing, no retractions or nasal flaring. Back: No spinal tenderness. No costovertebral tenderness. Full range of motion. Skin: Warm, dry with normal turgor. Normal color with no rashes, no lesions, and no evidence of cellulitis. MS/ Extremity: Pulses equal, no cyanosis. Neurovascular intact. Full, normal range of motion. Neuro: Awake and alert, GCS 15, oriented to person, place, time, and situation. Cranial nerves II-XII grossly intact. Motor strength 5/5 in all extremities. Sensory grossly intact. Cerebellar exam normal. Normal gait. 08:13 Constitutional: The patient appears alert, awake, anxious, in obvious distress, in obvious pain, uncomfortable. 08:13 ENT: External ear(s): are unremarkable, Ear canal(s): are normal, TM's: are normal, Nose: is normal, Mouth: is normal, Dental exam: gum swelling, missing teeth, pain, that is moderate, that is severe, specifically in the lower right second molar (#31), Voice: is normal. 08:13 Abdomen/GI: Inspection: abdomen appears normal, Bowel sounds: normal, vomiting. Vital Signs: 07:52 BP 176 / 116; Pulse 90; Resp 20; Temp 99.1(O); Pulse Ox 95% on R/A; Weight 110.68 kg rb1 (R); Height 5 ft. 6 in. (167.64 cm) (R); Pain 10/10; 07:52 Body Mass Index 39.38 (110.68 kg, 167.64 cm) rb1 MDM: 08:06 Patient medically screened. snw 08:12 Data reviewed: vital signs, nurses notes. Data interpreted: Pulse oximetry: on room air snw is 95 %. Interpretation: acceptable. Counseling: I had a detailed discussion with the patient and/or guardian regarding: the historical points, exam findings, and any diagnostic results supporting the discharge/admit diagnosis, the presence of at least one elevated blood pressure reading (>120/80) during this emergency department visit, the need for outpatient follow up, to return to the emergency department if symptoms worsen or persist or if there are any questions or concerns that arise at home. Administered Medications: 08:15 Drug: Jal (7.5 mg-325 mg) 1 tabs Route: PO; rb1 08:15 Follow up: Response: Medication administered at discharge. rb1 08:15 Drug: Clindamycin 300 mg Route: PO; rb1 08:15 Follow up: Response: Medication administered at discharge. rb1 08:15 Drug: Zofran 4 mg Route: PO; rb1 08:15 Follow up: Response: Medication administered at discharge.; pt. has had all three rb1 medications before. Disposition: 10:36 Co-signature as Attending Physician, Reji Valle MD I agree with the assessment and kdr plan of care. Disposition: 05/29/18 08:06 Discharged to Home. Impression: Dental caries, unspecified, Dental root caries. - Condition is Stable. - Discharge Instructions: Dental Caries, Adult, Dental Pain, Root Canal, Diet and Dental Disease. - Prescriptions for chlorhexidine gluconate 0.12 % Mucous Membrane mouthwash - place 15 milliliter by MUCOUS MEMBRANE route 2 times per day after brushing teeth, swish in mouth for 30 seconds then spit out; 480 milliliter. Clindamycin HCl 150 mg Oral Capsule - take 1 capsule by ORAL route every 6 hours for 10 days; 40 capsule. Ultram 50 mg Oral Tablet - take 1 tablet by ORAL route every 6 hours As needed; 20 tablet. - Medication Reconciliation Form, Thank You Letter, Antibiotic Education, Prescription Opioid Use form. - Follow up: Private Physician; When: Tomorrow; Reason: Recheck today's complaints, Continuance of care, Re-evaluation by your physician. Follow up: Emergency Department; When: As needed; Reason: Worsening of condition. Signatures: Reji Valle MD MD [facility] Chelo Dolan, O[facility]-C DIFFERENTIAL SPECIALIST-Sohailw Luanne Hayden, USMAN RN rb1 Batsheva Leos RN RN hb Corrections: (The following items were deleted from the chart) 08:41 08:06 05/29/2018 08:06 Discharged to Home. Impression: Dental caries, unspecified; rb1 Dental root caries. Condition is Stable. Forms are Medication Reconciliation Form, Thank You Letter, Antibiotic Education, Prescription Opioid Use. Follow up: Private Physician; When: Tomorrow; Reason: Recheck today's complaints, Continuance of care, Re-evaluation by your physician. Follow up: Emergency Department; When: As needed; Reason: Worsening of condition. snw 08:45 08:41 05/29/2018 08:06 Discharged to Home. Impression: Dental caries, unspecified; hb Dental root caries. Condition is Stable. Discharge Instructions: Dental Caries, Adult, Dental Pain, Root Canal, Diet and Dental Disease. Prescriptions for chlorhexidine gluconate 0.12 % Mucous Membrane mouthwash - place 15 milliliter by MUCOUS MEMBRANE route 2 times per day after brushing teeth, swish in mouth for 30 seconds then spit out; 480 milliliter, Clindamycin HCl 150 mg Oral Capsule - take 1 capsule by ORAL route every 6 hours for 10 days; 40 capsule, Ultram 50 mg Oral Tablet - take 1 tablet by ORAL route every 6 hours As needed; 20 tablet. and Forms are Medication Reconciliation Form, Thank You Letter, Antibiotic Education, Prescription Opioid Use. Follow up: Private Physician; When: Tomorrow; Reason: Recheck today's complaints, Continuance of care, Re-evaluation by your physician. Follow up: Emergency Department; When: As needed; Reason: Worsening of condition. rb1
--- NOTE | 2018-05-29 08:07 | ER ---
Nurse's Notes [facility] Name: Matti Juarez Age: 47 yrs Sex: Male : 1970 Arrival Date: 05/29/2018 Time: 07:52 Bed 13 Private MD: Diagnosis: Dental caries, unspecified;Dental root caries Presentation: 05/29 07:55 Presenting complaint: Patient states: c/o of tooth pain that started last night on the rb1 right lower jaw. Transition of care: patient was not received from another setting of care. Onset of symptoms was May 28, 2018. Risk Assessment: Do you want to hurt yourself or someone else? Patient reports no desire to harm self or others. Initial Sepsis Screen: Does the patient meet any 2 criteria? No. Patient's initial sepsis screen is negative. Does the patient have a suspected source of infection? No. Patient's initial sepsis screen is negative. 07:55 Method Of Arrival: Ambulatory rb1 07:55 Acuity: JELENA 4 rb1 07:55 Care prior to arrival: None. rb1 Triage Assessment: 07:55 General: Appears uncomfortable, Behavior is calm, cooperative. Pain: Complains of pain rb1 in right lower jaw Pain currently is 10 out of 10 on a pain scale. Pain began 1 day ago. EENT: Reports pain in right lower jaw. Neuro: Level of Consciousness is awake, alert, obeys commands, Oriented to person, place, time, situation. Cardiovascular: Capillary refill < 3 seconds is brisk in bilateral fingers. Respiratory: Airway is patent Respiratory effort is even, unlabored, Respiratory pattern is regular, symmetrical. GI: Reports vomiting, x 1 due to pain per pt. report. : No signs and/or symptoms were reported regarding the genitourinary system. Derm: Skin is dry, Skin is normal, Skin temperature is warm. Historical: - Allergies: 07:55 Aspirin; rb1 07:55 atorvastatin; rb1 07:55 Iodinated Contrast Media - IV Dye (cardiac arrest); rb1 07:55 Requip; rb1 07:55 SHELLFISH; rb1 07:55 Anesthesia; rb1 - Home Meds: 07:55 Lyrica Oral [Active]; metformin 1,000 mg Oral tab 1 tab 2 times per day [Active]; rb1 promethazine 25 mg Oral tab 1 tab every 6 hours [Active]; rosuvastatin 10 mg Oral tab 1 tab once daily [Active]; sertraline 50 mg Oral tab 1 tab once daily [Active]; trazodone 50 mg Oral tab [Active]; - PMHx: 07:55 cardiac arrest; Diabetes - NIDDM; heart catheterization; Hypertension; rb1 - PSHx: 07:55 spinal fusion; rb1 - Immunization history:: Adult Immunizations up to date. - Social history:: Smoking status: Patient/guardian denies using tobacco. - Ebola Screening: : Patient negative for fever greater than or equal to 101.5 degrees Fahrenheit, and additional compatible Ebola Virus Disease symptoms. Screenin:55 Abuse screen: Denies threats or abuse. Nutritional screening: No deficits noted. rb1 Tuberculosis screening: No symptoms or risk factors identified. Fall Risk None identified. Assessment: 07:55 General: See triage assessment. rb1 Vital Signs: 07:52 BP 176 / 116; Pulse 90; Resp 20; Temp 99.1(O); Pulse Ox 95% on R/A; Weight 110.68 kg rb1 (R); Height 5 ft. 6 in. (167.64 cm) (R); Pain 10/10; 07:52 Body Mass Index 39.38 (110.68 kg, 167.64 cm) rb1 ED Course: 07:52 Patient arrived in ED. rg4 07:52 Luanne Hayden, RN is Primary Nurse. rb1 07:52 Arm band placed on right wrist. rb1 07:55 Patient has correct armband on for positive identification. Bed in low position. Call rb1 light in reach. Side rails up X 1. Pulse ox on. NIBP on. 08:00 Chelo Dolan FNP-C is PHCP. snw 08:00 Reji Valle MD is Attending Physician. snw 08:03 Triage completed. rb1 08:17 No provider procedures requiring assistance completed. Patient did not have IV access rb1 during this emergency room visit. Administered Medications: 08:15 Drug: Marbury (7.5 mg-325 mg) 1 tabs Route: PO; rb1 08:15 Follow up: Response: Medication administered at discharge. rb1 08:15 Drug: Clindamycin 300 mg Route: PO; rb1 08:15 Follow up: Response: Medication administered at discharge. rb1 08:15 Drug: Zofran 4 mg Route: PO; rb1 08:15 Follow up: Response: Medication administered at discharge.; pt. has had all three rb1 medications before. Intake: Outcome: 08:06 Discharge ordered by MD. tamayo 08:17 Patient left the ED. rb1 08:17 Discharged to home ambulatory, with family. rb1 08:17 Condition: stable 08:17 Discharge instructions given to patient, Instructed on discharge instructions, follow up and referral plans. medication usage, Demonstrated understanding of instructions, follow-up care, medications, Prescriptions given X 3. 08:45 Patient left the ED. Signatures: Chelo Dolan, FOUNDRY TENDER-C FOUNDRY TENDER-Csnw Luanne Hayden RN RN rb1 Batsheva Leos RN RN Judith Palmer rg4 Corrections: (The following items were deleted from the chart) 08:45 08:41 Patient left the ED. rb1 rb1
[2018-05-29] MEDS ORDERED: HYDROCODONE/APAP 7.5/325 MG TAB ONE (08:24)
[2018-05-29] MEDS ORDERED: CLINDAMYCIN HCL 150 MG CAP ONE (08:24)
[2018-05-29] MEDS ORDERED: ONDANSETRON 4 MG (ODT) TAB ONE (08:24)
[2018-05-29 08:47] VITALS: BP 176/116; TEMP 99.1; O2SAT 95
== END 2018-05-29 08:45 | disposition home or self-care (01) ==
LOC: ER 07:50
DX: J06.9 Acute upper respiratory infection, unspecified (principal); Z88.6 Allergy status to analgesic agent; Z88.4 Allergy status to anesthetic agent; Z91.041 Radiographic dye allergy status; Z91.013 Allergy to seafood; E11.9 Type 2 diabetes mellitus without complications; I10 Essential (primary) hypertension

== ENCOUNTER 2018-06-07 15:45 | Emergency (ER) | payer OTHER ==
--- OUTSIDE RECORDS SUMMARY | 2018-06-07 15:49 | XMS REPORT | Clinical Summary ---
:1970 Author Organization [facility] Address [address] [place] [address] Care Team Providers Name Role Phone New ZacariasOVlad Primary Care Provider Allergies Active Allergy Reactions Severity Noted Date Comments Aspirin GI Bleeding High 10/11/2016 GI bleeding Atorvastatin Other (See Comments) Low 12/09/2017 Cough Iodine Hives 05/19/2007 IV iodine and iodine -Cardiac arrest Other 10/11/2016 Anesthesia: during Gallbladder and back surgery pt went into cardiac arrest. ([facility] Ropinirole 10/11/2016 Hypotensive for 2 days. [...] 09/12/19 Discontinued 10 MG tablet 7 18 famotidine (PEPCID) 40 Take 1 tablet 20 [...] Description 05/01/2018 - Hospital Encounter General Internal Dipti, Christiano Generalized weakness 05/05/2018 Shruti Walls MD (Primary Dx) Jude Lawson MD 02/07/2018 Emergency Emergency Medicine Imelda Espinoza, initial encounter (Primary Dx); Anthony Francis MD Pain of right forearm; Hand pain, right 01/15/2018 Emergency Emergency Medicine Imelda Perry, initial encounter (Primary Dx); Santiago Estrada, Contusion [...] Medicine Eliezer Gauthier MD 12/21/2017 Documentation Pain Eliezer Baumann MD 12/20/2017 - Emergency Emergency Medicine Js Alegre, Postoperative 12/21/2017 infection, initial encounter (Primary Dx) 12/20/2017 Intake Access N/A 12/18/2017 Anesthesia Event Orthopedic Surgery Maryan Gudino, EBD TEACHER 12/18/2017 Surgery Orthopedic Surgery Abrahan, INSERTION PAIN PUMP MD Eliezer FENTANYL 12/18/2017 Hospital Encounter Orthopedic Surgery Eliezer Gauthier MD 11/20/2017 Pre-Admit Testing Pre-Admission Abrahan Preop testing Appointment Testing MD Eliezer (Primary Dx) 11/20/2017 Emergency Emergency Medicine Kennedy Rodgers Acute right-sided Mohammad, DO low back pain, with sciatica presence unspecified (Primary Dx) 10/29/2017 Emergency Emergency Medicine Pam Rubio, Fabiola briggs, He Cortes, left, initial MD encounter (Primary Dx) 09/11/2017 Anesthesia Event Orthopedic Surgery Deng Manzanares, ELIAZAR 09/11/2017 Surgery Orthopedic Surgery Abrahan INTRATHECAL, FOR MD Eliezer PAIN PUMP TRIAL 09/11/2017 Hospital Encounter Orthopedic Surgery Eliezer Gauthier MD 08/24/2017 Emergency Emergency Medicine Camilo Olguin, Pain due to dental caries (Primary Dx); Chronic dental pain; Dental abscess; Hyperglycemia; Acute maxillary sinusitis, recurrence not specified 06/12/2017 Emergency Emergency Medicine Wingtorun, Urinary hesitancy ( Primary Dx); Dariel Essential hypertension MD Hair after 06/06/2017 Family History Medical History Relation Name Comments [...] Taken Blood Pressure 109/57 05/05/2018 10:44 AM TECHNICAL SALES ADVISOR Pulse 64 05/05/2018 10:44 AM TECHNICAL SALES ADVISOR Temperature 36.8 C (98.2 F) 05/05/2018 10:44 AM TECHNICAL SALES ADVISOR Respiratory Rate 15 05/05/2018 10:44 AM TECHNICAL SALES ADVISOR Oxygen Saturation 97% 05/05/2018 10:44 AM TECHNICAL SALES ADVISOR Inhaled Oxygen Concentration - - Weight 111 kg (244 lb) 05/01/2018 12:14 PM TECHNICAL SALES ADVISOR Height 167.6 cm (5' 6") 05/01/2018 12:14 PM TECHNICAL SALES ADVISOR Body Mass Index 39.38 05/01/2018 12:14 PM TECHNICAL SALES ADVISOR Plan of Treatment Health Maintenance Due Date Last Done Comments INFLUENZA VACCINE 12/11/2017 Implants Implanted Type 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 Device Shelf Model / Identifier Expiration Serial Date / Lot Surescan Sensor Ipg - [id number] - [id number] IMPLANT N/A: N/A [employer] -NEUROLO 08/07/2017 [id number] / Implanted: Qty: 1 on 10/17/2016 by Eliezer Gauthier MD DEVICES GICAL [id number] / N/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 - [id number] IMPLANT N/A: N/A [employer]-NEUROLO [id number] / Implanted: Qty: 1 on 10/17/2016 by Eliezer Gauthier MD DEVICES GIKIKI / Charging System, W Sensor, Spinal Stimulation, Ea - [id number] IMPLANT N/A : N/A [employer]-NEUROLO [id number] / Implanted: Qty: 1 on 10/17/2016 by Eliezer Gauthier MD DEVICES GICAL / Kit Pckt Adptr For Scs 2x4in - [id number] Neurosurgical N/A: N/A [employer] 01/23/2020 [id number] / Implanted: Qty: 1 on 10/17/2016 by Eliezer Gauthier MD Implants NEUROMODULATION / [id number] Pump Infsn Synchromed Ii W/ Fltr Sut Loop Prgrmbl Rsvr 20ml - [id number] - [id number] Neurosurgical Right: [employer] 05/26/2019 [id number] / Implanted: Qty: 1 on 12/18/2017 by Eliezer Gauthier MD Implants Abdomen, NEUROMODULATION [id number] / Lower [id number] Quadrant Passer Cath W/ Rmvbl Hndl And Ppe Obtrtr 38cm Strl - [id number] Neurosurgical N/A: N/A [employer] [facility] - 10/10/2022 [id number] / Implanted: Qty: 1 on 12/18/2017 by Eliezer Gauthier MD Implants NEUROLOGICAL / [id number] Procedures Procedure Name Priority Date/Time Associated Comments Diagnosis ESTIMATED GFR Routine 05/04/2018 5:05 Results for this AM TECHNICAL SALES ADVISOR procedure are in the results section. BASIC METABOLIC PANEL Routine 05/04/2018 5:05 Results for this AM TECHNICAL SALES ADVISOR procedure are in the results section. HC COMPLETE BLD COUNT Routine 05/04/2018 5:05 Results for this W/AUTO DIFF AM TECHNICAL SALES ADVISOR procedure are in the results section. POC GLUCOSE Routine 05/02/2018 5:46 Results for this PM TECHNICAL SALES ADVISOR procedure are in the results section. POC GLUCOSE Routine 05/01/2018 5:01 Results for this PM TECHNICAL SALES ADVISOR procedure are in the results section. URINALYSIS SCREEN AND Routine 05/01/2018 3:33 Results for this MICROSCOPY, WITH REFLEX PM TECHNICAL SALES ADVISOR procedure are in TO CULTURE the results section. URINE CULTURE Routine 05/01/2018 3:33 Results for this PM TECHNICAL SALES ADVISOR procedure are in the results section. CT HEAD WO CONTRAST STAT 05/01/2018 2:36 Results for this PM TECHNICAL SALES ADVISOR procedure are in the results section. VENOUS BLOOD GAS STAT 05/01/2018 1:51 Results for this PM TECHNICAL SALES ADVISOR procedure are in the results section. XR CHEST 1 VW PORTABLE STAT 05/01/2018 1:10 Results for this PM TECHNICAL SALES ADVISOR procedure are in the results section. PROCALCITONIN Routine 05/01/2018 12:40 Results for this PM TECHNICAL SALES ADVISOR procedure are in the results section. C-REACTIVE PROTEIN Routine 05/01/2018 12:40 Results for this PM TECHNICAL SALES ADVISOR procedure are in the results section. ESTIMATED GFR STAT 05/01/2018 12:40 Results for this PM TECHNICAL SALES ADVISOR procedure are in the results section. TROPONIN STAT 05/01/2018 12:40 Results for this PM TECHNICAL SALES ADVISOR procedure are in the results section. CREATINE KINASE, TOTAL STAT 05/01/2018 12:40 Results for this (CPK) PM TECHNICAL SALES ADVISOR procedure are in the results section. HC COMPLETE BLD COUNT STAT 05/01/2018 12:40 Results for this W/AUTO DIFF PM TECHNICAL SALES ADVISOR procedure are in the results section. LIPASE LEVEL STAT 05/01/2018 12:40 Results for this PM TECHNICAL SALES ADVISOR procedure are in the results section. HEPATIC FUNCTION PANEL STAT 05/01/2018 12:40 Results for this PM TECHNICAL SALES ADVISOR procedure are in the results section. BASIC METABOLIC PANEL STAT 05/01/2018 12:40 Results for this PM TECHNICAL SALES ADVISOR procedure are in the results section. RESPIRATORY PATHOGEN Routine 05/01/2018 12:40 Results for this PANEL PM TECHNICAL SALES ADVISOR procedure are in the results section. INFLUENZA ANTIGEN TEST, Routine 05/01/2018 12:40 Results for this REFLEX NEGATIVE TO RPP PM TECHNICAL SALES ADVISOR procedure are in the results section. ECG ED PRELIMINARY Routine 05/01/2018 12:19 Results for this INTERPRETATION PM TECHNICAL SALES ADVISOR procedure are in the results section. ECG 12-LEAD STAT 05/01/2018 12:18 Results for this PM TECHNICAL SALES ADVISOR procedure are in the results section. POC GLUCOSE Routine 05/01/2018 12:13 Results for this PM TECHNICAL SALES ADVISOR procedure are in the results section. XR [...] CDT procedure are in the results section. GA CRITICAL CARE, E/M Routine 12/21/2017 1:05 Results [...] CDT procedure are in the results section. GA AN ELECTIVE Routine 12/18/2017 11:42 ENDOTRACHEAL AIRWAY AM CDT Procedure Note - Omega Jo CRNA - 12/18/2017 11:42 AM CDT Airway Date/Time: 12/18/2017 11:23 AM Performed by: OMEGA JO Authorized by: REGINA LATHAM Location: [place] Urgency: Elective Difficult Airway: No Resident/DRILL SETUP OPERATOR/AA: OMEGA JO Performed by: resident/DRILL SETUP OPERATOR/AA Preoxygenated with 100% O2: Yes C-spine Precautions [...] significant psychosocial dysfunction Special Needs LARGE C-ARM [email or web address] POC GLUCOSE Routine 12/18/2017 9:36 AM Results [...] section. ZZESTIMATED GFR Routine 06/12/2017 3:25 AM TECHNICAL SALES ADVISOR COMPREHENSIVE METABOLIC Routine 06/12/2017 3:25 AM TECHNICAL SALES ADVISOR Results for this PANEL procedure are in the results section. URINALYSIS SCREEN AND STAT 06/12/2017 2:50 AM TECHNICAL SALES ADVISOR Results for this MICROSCOPY, WITH REFLEX TO procedure are in the CULTURE results section. URINE CULTURE STAT 06/12/2017 2:50 AM TECHNICAL SALES ADVISOR HC COMPLETE BLD COUNT W/AUTO STAT 06/12/2017 2:45 AM TECHNICAL SALES ADVISOR Results for this DIFF procedure are in the results section. after 06/06/2017 Results Estimated GFR (05/04/2018 5:05 AM TECHNICAL SALES ADVISOR)Only the most recent of2 resultswithin the time period is included. Estimated GFR 89 mL/min/1.[address] [facility] Comment: [facility] CatergoryUnitsInterpretation G1 >=90 Normal or high G2 60-89Mildly decreased N1p80-80Fdymkw to moderately decreased Z2l19-32Bdxapjixqw to severely decreased G4 15-29Severely decreased G5 <15Kidney failure The eGFR was calculated using the Chronic Kidney Disease Epidemiology Collaboration (CKD-EPI) equation. Interpretation is based on recommendations of the National Kidney Foundation-Kidney Disease Outcomes Quality Initiative (NKF-KDOQI) published in 2014. Specimen Plasma specimen Performing Organization Address City/[facility]/Zipcode Phone Number [facility] DEPARTMENT OF PATHOLOGY AND [address] [place] [address] GENOMIC MEDICINE [facility] [address] CBC with platelet and differential (05/04/2018 5:05 AM TECHNICAL SALES ADVISOR)Only the most recent of11 resultswithin the time period is included. WBC 9.20 4.50 - 11.00 k/uL [facility] RBC 4.68 4.40 - 6.00 m/uL [facility] HGB 13.8 (L) 14.0 - 18.0 g/dL [facility] HCT 42.6 41.0 - 51.0 % [facility] MCV 91.0 82.0 - 100.0 fL [facility] MCH 29.5 27.0 - 34.0 pg [facility] MCHC 32.4 31.0 - 37.0 g/dL [facility] RDW - SD 45.8 37.0 - 55.0 fL [facility] MPV 12.6 8.8 - 13.2 fL [facility] Platelet count 134 (L) 150 - 400 k/uL [facility] Nucleated RBC 0.00 /100 WBC [facility] Neutrophils 54.7 39.0 - 69.0 % [facility] Lymphocytes 33.8 25.0 - 45.0 % [facility] Monocytes 6.2 0.0 - 10.0 % [facility] Eosinophils 3.6 0.0 - 5.0 % [facility] Basophils 0.5 0.0 - 1.0 % [facility] Specimen Blood Performing Organization Address City/[facility]/Zipcode Phone Number [facility] DEPARTMENT OF PATHOLOGY AND [address] [place] [id number] [place] [address] Basic metabolic panel (05/04/2018 5:05 AM TECHNICAL SALES ADVISOR)Only the most recent of4 resultswithin the time period is included. Sodium 142 135 - 148 mEq/L [facility] Potassium 4.0 3.5 - 5.0 mEq/L [facility] Chloride 108 98 - 112 mEq/L [facility] CO2 25 24 - 31 mEq/L [facility] Anion gap 9@ANIO 7 - 15 mEq/L [facility] BUN 13 6 - 20 mg/dL [facility] Creatinine 1.00 0.70 - 1.20 mg/dL [facility] Glucose 120 (H) 65 - 99 mg/dL [facility] Calcium 8.9 8.3 - 10.2 mg/dL [facility] Specimen Plasma specimen Performing Organization Address City/[facility]/Zipcode Phone Number [facility] DEPARTMENT OF PATHOLOGY AND [address] [place] [address] POC glucose (05/02/2018 5:46 PM TECHNICAL SALES ADVISOR)Only the most recent of14 resultswithin the time period is included. POC glucose 119 (H) 65 - 99 mg/dL [facility] Comment: HOSPITAL Meter ID: [id number] Slip Tender: Yuval Barrientos Performing Organization Address City/State/Zipcode Phone Number [facility] DEPARTMENT OF PATHOLOGY AND [address] [place] [address] Urinalysis screen and microscopy, with reflex to culture (05/01/2018 3:33 PM TECHNICAL SALES ADVISOR)Only the most recent of4 resultswithin the time period is included. Specimen site Clean catch [facility] Color, UA Yellow [facility] Appearance, UA Clear [facility] Specific gravity, UA 1.028 1.001 - 1.035 [facility] pH, UA 5.0 5.0 - 8.5 [facility] Protein, UA Negative Negative [facility] Glucose, UA 3+ (A) Negative [facility] Ketones, UA Negative Negative [facility] Bilirubin, UA Negative Negative [facility] Blood, UA Negative Negative [facility] Nitrite, UA Negative Negative [facility] Urobilinogen, UA 4.0 (A) <2.0 [facility] Leukocyte esterase, UA Negative Negative [facility] Epithelial cells, UA Few /HPF [facility] WBC, UA 0-5 0 - 1 /HPF [facility] RBC, UA 0-5 0 - 5 /HPF [facility] Bacteria, UA None seen None seen [facility] Yeast, UA None seen [facility] Yeast with pseudohyphae, UA None seen [facility] Specimen Urine Performing Organization Address [facility] Phone Number [facility] DEPARTMENT OF PATHOLOGY AND [address] [place] [address] Urine culture (05/01/2018 3:33 PM TECHNICAL SALES ADVISOR)Only the most recent of4 resultswithin the time period is included. Urine culture SEE COMMENTComment: Bacteriuria [facility] screen negative. HOSPITAL Specimen Urine Performing Organization Address City/[facility] Phone Number [facility] DEPARTMENT OF PATHOLOGY AND [address] [place] [address] Head Wo Contrast (05/01/2018 2:36 PM TECHNICAL SALES ADVISOR)Only the most recent of3 resultswithin the time period is included. Narrative Performed At EXAMINATION: CT HEAD WO CONTRAST [facility] CLINICAL HISTORY: headacheweakness COMPARISON:CT brain from [...] abnormality. IMPRESSION: No acute intracranial abnormality identified. [facility]-[id number] Procedure Note Interface, Radiology Results Incoming - 05/01/2018 2:42 PM TECHNICAL SALES ADVISOR EXAMINATION: CT HEAD WO CONTRAST CLINICAL HISTORY: [...] abnormality. IMPRESSION: No acute intracranial abnormality identified. [facility]-[id number] Performing Organization Address City/State/Zipcode Phone Number [facility] [address] [place] [address] Venous blood gas (05/01/2018 1:51 PM TECHNICAL SALES ADVISOR) pH, venous 7.36 7.32 - 7.42 [facility] pCO2, venous 43 (L) 45 - 51 mmHg [facility] pO2, venous 61 (H) 25 - 40 mmHg [facility] Base excess, venous -2 -2 - 2 meq/L [facility] O2 saturation, venous 92 (H) 40 - 70 % [facility] Bicarbonate, venous 23.1 21.0 - 28.0 mmol/L [facility] FiO2, inspired O2% Unknown % [facility] Specimen Blood Performing Organization Address [facility] Phone Number [facility] DEPARTMENT OF PATHOLOGY AND [address] [place] [address] GENOMIC MEDICINE [facility] [address] [place] [address] [facility] XR Chest 1 Vw Portable (05/01/2018 1:10 PM TECHNICAL SALES ADVISOR) Narrative Performed At EXAMINATION:XR CHEST 1 VW [facility]ABLE [facility]:weaknessfatigue COMPARISON:Left rib series [...] unchanged. Mild cardiomegaly. The bones are unremarkable. [facility]-[id number] Procedure Note Interface, Radiology Results Incoming - 05/01/2018 1:27 PM TECHNICAL SALES ADVISOR EXAMINATION: XR CHEST 1 VW PORTABLE CLINICAL [...] unchanged. Mild cardiomegaly. The bones are unremarkable. [facility]-[id number] Performing Organization Address City/[facility]/Zipcode Phone Number [facility] [address] [place] [address] Respiratory pathogen panel (05/01/2018 12:40 PM TECHNICAL SALES ADVISOR) Respiratory pathogen Negative for all pathogens tested: [facility] panel Negative for Adenovirus HOSPITAL Negative [...] Left Performing Organization Address City/State/Zipcode Phone Number [facility] DEPARTMENT OF PATHOLOGY AND [address] [place] [phone] [facility] [address] [address] Procalcitonin (05/01/2018 12:40 PM TECHNICAL SALES ADVISOR) Procalcitonin 0.65 (H) <=0.07 ng/mL [facility] Comment: INTERPRETIVE INFORMATION: Procalcitonin Effective November 11, 2017, this test is performed by the [facility] Procalcitonin assay. A correction has been [...] condition(s) of the individual patient. Performed at: [facility] [address] [facility] [address] Specimen Serum Performing Organization Address City/[facility]/Zipcode Phone Number [facility] [address] [place] [address] [facility] [address] [place] [address] Influenza antigen test, reflex negative to RPP (05/01/2018 12:40 PM TECHNICAL SALES ADVISOR) Influenza antigen Negative for Influenza A/B antigen. [facility] Comment: HOSPITAL Specimen Information Specimen Source: Nares Specimen Site: Left Specimen Nares - Left Performing Organization Address [facility] Phone Number [facility] DEPARTMENT PATHOLOGY AND [address] [place] [id number] [place] [address] Troponin (05/01/2018 12:40 PM TECHNICAL SALES ADVISOR)Only the most recent of6 resultswithin the time period is included. Troponin <0.300 0.000 - 0.300 ng/mL [facility] Comment: HOSPITAL 0.30 - 1.49 ng/mlMay indicate increased risk of acute coronary syndrome. >=1.5 ng/mlConsistent with acute myocardial infarction. The diagnostic value of a single normal or non-diagnostic result is questionable.Serial samples at 2-6 hour intervals are required to rule out acute myocardial injury. Specimen Plasma specimen Performing Organization Address [facility] Phone Number [facility] DEPARTMENT PATHOLOGY AND [address] [place] [address] C-reactive protein (05/01/2018 12:40 PM TECHNICAL SALES ADVISOR)Only the most recent of2 resultswithin the time period is included. CRP 1.21 (H) 0.00 - 0.50 mg/dL [facility] Specimen Plasma specimen Performing Organization Address [facility] Phone Number [facility] DEPARTMENT OF PATHOLOGY AND [address] [place] [address] [address] Lipase level (05/01/2018 12:40 PM TECHNICAL SALES ADVISOR)Only the most recent of5 resultswithin the time period is included. Lipase 39 13 - 60 U/L [facility] Specimen Plasma specimen Performing Organization Address [facility] Phone Number [facility] DEPARTMENT OF PATHOLOGY AND [address] [place] [address] Creatine kinase, total (CPK) (05/01/2018 12:40 PM TECHNICAL SALES ADVISOR)Only the most recent of3 resultswithin the time period is included. Creatine kinase 54 39 - 308 U/L [facility] Specimen Plasma specimen Performing Organization Address City/[facility] Phone Number [facility] DEPARTMENT OF PATHOLOGY AND [address] [place] [address] Hepatic function panel (05/01/2018 12:40 PM TECHNICAL SALES ADVISOR)Only the most recent of3 resultswithin the time period is included. Albumin 4.1 3.5 - 5.0 g/dL [facility] Total bilirubin 0.6 0.0 - 1.2 mg/dL [facility] Bilirubin direct <0.1 0.0 - 0.3 mg/dL [facility] Alkaline phosphatase 121 40 - 129 U/L [facility] Protein 8.1 6.3 - 8.3 g/dL [facility] Comment: HOSPITAL 4.6-7.0 g/dL 1 week 4.4-7.6 g/dL 7 months-1year5.1-7.3 g/dL 1-2 years5.6-7.5 g/dL >3 years6.0-8.0 g/dL 18-150 6.3-8.3 g/dL ALT 27 5 - 50 U/L [facility] AST 40 10 - 50 U/L [facility] Specimen Plasma specimen Performing Organization Address City/[facility] Phone Number [facility] DEPARTMENT OF PATHOLOGY AND [address] [place] [address] ECG ED Preliminary Interpretation - Not an Order (05/01/2018 12:19 PM TECHNICAL SALES ADVISOR)Only the most recent of5 resultswithin the time period is included. Narrative Performed At Christiano Resendez MD 05/01/20182:23 PM ECG ED Preliminary Interpretation - Not an Order Performed by: Christiano Resendez MD Authorized by: Christiano Resendez MD ECG reviewed by ED Physician in the absence of a stucco plasterer: yes Previous ECG: Previous ECG:Compared to current Similarity:No change Interpretation: Interpretation: normal Rate: ECG rate:68 ECG rate assessment: normal Rhythm: Rhythm: sinus rhythm Ectopy: Ectopy: none QRS: QRS axis:Left QRS intervals:Normal Conduction: Conduction: normal ST segments: ST segments:Normal T waves: T waves: normal Comments: Read at 12:18 pm ECG 12 lead (05/01/2018 12:18 PM TECHNICAL SALES ADVISOR)Only the most recent of6 resultswithin the time period is included. Ventricular rate 68 [facility] Atrial rate 68 [facility] GA interval 128 [facility] QRSD interval 84 [...] At Performing Organization Address City/State/Zipcode Phone Number [facility] [address] [place] [address] XR Forearm 2 Vw Right (02/07/2018 2:37 AM CDT)Only the most recent of2 resultswithin the time period is included. Narrative Performed At XR FOREARM 2 VW RIGHT [facility] CLINICAL INDICATION:Fractureforearm COMPARISON:None. IMPRESSION: There is no acute fracture or dislocation. There are mild degenerative changes at the base of the thumb. Osseous mineralization is normal. [facility]-[id number] Procedure Note Interface, Radiology Results Incoming - 02/07/2018 2:45 AM CDT XR FOREARM 2 VW RIGHT CLINICAL INDICATION: Fracture forearm COMPARISON: None. IMPRESSION: There is no acute fracture or dislocation. There are mild degenerative changes at the base of the thumb. Osseous mineralization is normal. [id number] Performing Organization Address [facility] Phone Number [facility] [address] [place] [address] XR Hand 3+ Vw Right (02/07/2018 2:37 AM CDT) Narrative Performed At XR HAND 3VW RIGHT [facility] CLINICAL INDICATION:Fracturehand COMPARISON:None. IMPRESSION: There is no acute fracture or dislocation. There are mild degenerative changes of the base of the thumb. Osseous mineralization is normal. [facility]-[id number] Procedure Note Interface, Radiology Results Incoming - 02/07/2018 2:42 AM CDT XR HAND 3 VW RIGHT CLINICAL INDICATION: Fracture hand COMPARISON: None. IMPRESSION: There is no acute fracture or dislocation. There are mild degenerative changes of the base of the thumb. Osseous mineralization is normal. [facility]-[id number] Performing Organization Address [facility] Phone Number [facility] [address] [place] [address] XR Ribs W Pa Chest Left (01/15/2018 [...] abnormality identified in the chest or leftribs. [facility]-[id number] Procedure Note Interface, Radiology Results Incoming - [...] identified in the chest or left ribs. [id number] Performing Organization Address [facility] Phone Number [facility] [address] [place] [address] Estimated GFR (01/15/2018 1:57 AM CDT)Only the most recent of9 resultswithin the time period is included. GFR Non Af Amer 72 mL/min/1.73 m2 [facility] DEPARTMENT OF PATHOLOGY AND [facility] GFR Af Amer 87 mL/min/1.73 m2 [facility] DEPARTMENT OF Comment: PATHOLOGY AND [facility] Chronic kidney disease: <60 mL/min/1.73m2 MEDICINE Kidney [...] Americans. Specimen Plasma specimen Performing Organization Address [facility] Phone Number [facility] AND [address] [place] [address] [address] [place], [place] [id number] [place] [address] Partial thromboplastin time, activated (01/15/2018 1:57 AM CDT)Only the most recent of3 resultswithin the time period is included. PTT 35.1 23.0 - 36.0 sec [facility] DEPARTMENT OF Comment: PATHOLOGY AND [facility] PTT therapeutic range for unfractionated heparin is MEDICINE 61.0-112.0 seconds which corresponds to Anti-Xa 0.3-0.7 U/ml. Specimen Blood Performing Organization Address [facility] Phone Number [facility] AND [address] [place] [address] [place] [address] [facility] Prothrombin time with INR (01/15/2018 1:57 AM CDT)Only the most recent of3 resultswithin the time period is included. Prothrombin time 13.6 12.0 - 15.0 sec [facility] DEPARTMENT OF PATHOLOGY AND [facility] INR 1.0 [facility] DEPARTMENT OF Comment: PATHOLOGY AND [facility] The International Normalized Ratio (INR) is a therapeutic MEDICINE monitoring tool for patients who are stable on oral anticoagulant therapy. An INR of 2.0-3.0 is suggested for deep vein thrombosis/pulmonary embolism. Specimen Blood Performing Organization Address [facility] Phone Number [facility] AND [address] [place] [address] [place] [address] [facility] CT Renal Stone Protocol (01/02/2018 11:04 PM CDT) Narrative Performed At EXAMINATION:[facility] CLINICAL HISTORY:RUQ abdominal pain around pain pump [...] seen associated with the device or catheter. [facility]-[id number] Procedure Note Interface, Radiology Results Incoming - [...] seen associated with the device or catheter. [facility]-[id number] Performing Organization Address City/State/Zipcode Phone Number [facility] [address] [place] [address] Comprehensive metabolic panel (01/02/2018 10:40 PM CDT)Only the most recent of7 resultswithin the time period is included. Sodium 141 135 - 148 mEq/L [facility] DEPARTMENT OF PATHOLOGY AND GENOMIC MEDICINE Potassium 3.9 3.5 - 5.0 mEq/L [facility] DEPARTMENT OF PATHOLOGY AND GENOMIC MEDICINE Chloride 103 98 - 112 mEq/L [facility] DEPARTMENT OF PATHOLOGY AND GENOMIC MEDICINE CO2 26 24 - 31 mEq/L [facility] DEPARTMENT OF PATHOLOGY AND GENOMIC MEDICINE Anion gap 12@ANIO 7 - 15 mEq/L [facility] DEPARTMENT OF PATHOLOGY AND GENOMIC MEDICINE BUN 9 6 - 20 mg/dL [facility] DEPARTMENT OF PATHOLOGY AND GENOMIC MEDICINE Creatinine 1.2 0.7 - 1.2 mg/dL [facility] DEPARTMENT OF PATHOLOGY AND GENOMIC MEDICINE Glucose 203 (H) 65 - 99 mg/dL [facility] DEPARTMENT OF PATHOLOGY AND GENOMIC MEDICINE Calcium 8.6 8.3 - 10.2 mg/dL [facility] DEPARTMENT OF PATHOLOGY AND GENOMIC MEDICINE Protein 8.1 6.3 - 8.3 g/dL [facility] DEPARTMENT OF Comment: PATHOLOGY AND GENOMIC 4.6-7.0 g/dL MEDICINE 1 week 4.4-7.6 g/dL 7 months-1year5.1-7.3 g/dL 1-2 years5.6-7.5 g/dL >3 years6.0-8.0 g/dL 18-150 6.3-8.3 g/dL Albumin 3.9 3.5 - 5.0 g/dL [facility] OF PATHOLOGY AND bMobilized MEDICINE A/G ratio 0.9 0.7 - 3.8 [facility] DEPARTMENT OF PATHOLOGY AND GENOMIC MEDICINE Alkaline phosphatase 97 40 - 129 U/L [facility] DEPARTMENT OF PATHOLOGY AND GENOMIC MEDICINE AST 20 10 - 50 U/L [facility] DEPARTMENT OF PATHOLOGY AND GENOMIC MEDICINE ALT 11 5 - 50 U/L [facility] OF PATHOLOGY AND bMobilized [facility] Total bilirubin 0.4 0.0 - 1.2 mg/dL [facility] OF PATHOLOGY AND bMobilized [facility] Specimen Plasma specimen Performing Organization Address City/State/Zipcode Phone Number [facility] DEPARTMENT OF PATHOLOGY AND [address] [place] [address] [facility] CT Abdomen Pelvis Wo Contrast (12/24/2017 [...] inguinal lymphadenopathy is identified. IMPRESSION: Unremarkable exam. [facility]-[id number] Procedure Note [facility], Radiology Results Incoming - 12/24/2017 8:44 PM [...] inguinal lymphadenopathy is identified. IMPRESSION: Unremarkable exam. [facility]-[id number] Performing Organization Address City/State/Zipcode Phone Number [facility] [address] [place] [address] B natriuretic peptide (12/24/2017 8:08 PM CDT) BNP 17 0 - 100 pg/mL [facility] DEPARTMENT OF PATHOLOGY AND GENOMIC MEDICINE Specimen Blood Performing Organization Address City/[facility] Phone Number [facility] DEPARTMENT OF PATHOLOGY AND [address] [place] [address] GENOMIC MEDICINE Phosphorus level (12/21/2017 3:56 AM CDT) Phosphorus 3.1 2.4 - 4.5 mg/dL [facility] DEPARTMENT OF PATHOLOGY AND GENOMIC MEDICINE Specimen Plasma specimen Performing Organization Address City/[facility] Phone Number [facility] DEPARTMENT OF PATHOLOGY AND [address] [place] [address] [facility] MEDICINE Magnesium level (12/21/2017 3:56 AM CDT) Magnesium 1.8 1.6 - 2.6 mg/dL [facility] DEPARTMENT OF PATHOLOGY AND GENOMIC MEDICINE Specimen Plasma specimen Performing Organization Address [facility] Phone Number [facility] DEPARTMENT OF PATHOLOGY AND [address] [place] [address] [facility] MEDICINE CRITICAL CARE (12/21/2017 1:05 AM CDT) [...] No growth after 5 days of incubation. [facility] DEPARTMENT OF Comment: PATHOLOGY AND GENOMIC Specimen Information MEDICINE Specimen Source: Blood Specimen Site: Antecubital, left Specimen Blood - Antecubital, left Performing Organization Address City/[facility] Phone Number [facility] DEPARTMENT OF PATHOLOGY AND [address] [place] [address] GENOMIC MEDICINE Lactic acid level, SEPSIS - Now and repeat 2x every 3 hours (12/20/2017 9:20 PM CDT) Lactic acid 1.3 0.5 - 2.2 mmol/L [facility] DEPARTMENT OF PATHOLOGY AND GENOMIC MEDICINE Specimen Plasma specimen Performing Organization Address [facility] Phone Number [facility] DEPARTMENT OF PATHOLOGY AND [address] [place] [address] GENOMIC MEDICINE Sedimentation rate (12/20/2017 9:20 PM CDT) Sedimentation rate 38 (H) 0 - 10 mm/hr [facility] DEPARTMENT OF PATHOLOGY AND GENOMIC MEDICINE Specimen Blood Performing Organization Address [facility] Phone Number [facility] DEPARTMENT OF PATHOLOGY AND [address] [place] [address] GENOMIC MEDICINE OR FL < 1 Hour (12/18/2017 [...] DOSAGE:41.57 mGy TECH: TS Performing Organization Address [facility] Phone Number [facility] [address] [place] [address] ECG Pre/Post Op (11/20/2017 4:45 PM CDT) Ventricular rate 74 H MUSE Atrial rate 74 [facility] MUSE GA interval 138 [facility] QRSD interval 86 [facility] QT interval 364 [facility] QTC interval 404 [facility] MUSE P axis 1 15 [facility] MUSE QRS axis 1 -34 [facility] MUSE T wave axis 8 [facility] MUSE EKG impression Normal sinus rhythm-Left axis [facility] MUSE deviation-Abnormal ECG-In automated comparison with ECG of 24-AUG-2017 22:48,-No significant change was found- Performing Organization Address [facility] Phone Number [facility] MUSE [address] [place] [address] Hemoglobin A1c (11/20/2017 4:34 PM CDT) Hemoglobin A1C 7.9 (H) 4.0 - 5.6 % [facility] DEPARTMENT OF PATHOLOGY Comment: AND GENOMIC MEDICINE HbA1c cutoffs for diagnosing diabetes: 4.0% - 5.6%=normal 5.7% - 6.4%=increased risk for diabetes (prediabetes) >=6.5%=diabetes Goals for glycemic control (ADA 2016) < 7.0%Target for non adults with diabetes. More or less stringent targets may be appropriate for individual patients. <7.5% Target for Children and adolescents with type 1 diabetes. Specimen Blood Performing Organization Address [facility] Phone Number [facility] DEPARTMENT OF PATHOLOGY AND [address] [place] [address] b[employer]obilized MEDICINE XR Shoulder 2+ Vw Left (10/29/2017 7:50 PM CDT) Narrative Performed At EXAMINATION:XR SHOULDER 2VW LEFT [facility] CLINICAL HISTORY:pain COMPARISON:None. IMPRESSION: No evidence of acute left shoulder fracture or dislocation. Soft tissues are unremarkable. [facility]-[id number] Procedure Note Interface, Radiology Results Incoming - 10/29/2017 8:18 PM CDT EXAMINATION: XR SHOULDER 2 VW LEFT CLINICAL HISTORY: pain COMPARISON: None. IMPRESSION: No evidence of acute left shoulder fracture or dislocation. Soft tissues are unremarkable. [facility]-[id number] Performing Organization Address [facility] Phone Number [facility] [address] [place] [address] XR Chest 2 Vw (10/29/2017 7:50 PM CDT)Only the most recent of2 resultswithin the time period is included. Narrative Performed At EXAMINATION: XR CHEST 2 VW [facility] CLINICAL HISTORY: SOBl shoulder pain r o ptx COMPARISON:08/24/2017 chest x-ray. IMPRESSION: The lungs are clear. No pleural effusion or pneumothorax. The cardiomediastinal silhouette is normal. No acute osseous abnormalities. [facility]-[id number] Procedure Note Interface, Radiology Results Incoming - 10/29/2017 8:18 PM CDT EXAMINATION: XR CHEST 2 VW CLINICAL HISTORY: SOB l shoulder pain r o ptx COMPARISON: 08/24/2017 chest x-ray. IMPRESSION: The lungs are clear. No pleural effusion or pneumothorax. The cardiomediastinal silhouette is normal. No acute osseous abnormalities. [facility]-[id number] Performing Organization Address [facility] Phone Number [facility] [address] [place] [address] CT Maxillofacial Wo Contrast (08/24/2017 10:32 PM [...] the left maxillary medial incisor is noted. [facility]-[id number] Procedure Note Interface, Radiology Results Incoming - 08/24/2017 10:44 [...] the left maxillary medial incisor is noted. [facility]-[id number] Performing Organization Address City/State/Zipcode Phone Number [facility] [address] [place] [address] after 06/06/2017 Insurance Payer Benefit Plan / Group Subscriber ID Type Phone Address [facility] DUAL COMPLETE [facility] xxxxxxxxx O (Home) [address] [place] [address] Advance Directives Patient has advance care planning documents on file. For more information, please contact:Joshua Arciniega[address] [place] [address]
--- OUTSIDE RECORDS SUMMARY | 2018-06-07 15:49 | XMS REPORT ---
:1970 [facility] Address [address] [place] [address] Care Team Providers Name Role Phone NONE Primary Care Provider Unavailable Payers Payer Name Policy Type Policy Number Effective Date Expiration Date Problems This patient has no known problems. Allergies, Adverse Reactions, Alerts Allergy Name Allergy Status Severity Reaction(s) Onset Inactive Treating Comments Type Date Date Clinician iodine DA Active SV 2018-05 00:00:0 0 lisinopril DA Active ID 2018-05 00:00:0 0 iodine DA Active ID 2018-05 00:00:0 0 lorazepam DA Active MO 2018-05 00:00:0 0 aspirin DA Active ID 2018-05 00:00:0 0 ropinirole DA Active ID 2018-05 00:00:0 0 lorazepam DA Active MO [...] ID 2017-07-31 2017-07-31 Emergency E [facility] [id number] 19:16:00 19:16:00
--- NOTE | 2018-06-07 17:01 | RAD REPORT ---
EXAM DESCRIPTION: RAD - Chest Pa And Lat (2 Views) - 06/07/2018 4:46 pm CLINICAL HISTORY: Cough, congestion and fever COMPARISON: May 27 TECHNIQUE: PA and lateral views of the chest were obtained. FINDINGS: The lungs are clear of focal infiltrate, mass or failure. Lung markings are mildly promine nt but not clearly different. Heart size is normal and central vasculature is within normal limits. No pleural effusion or pneumothorax seen. No acute bony finding noted. No aortic abnormality. IMPRESSION: No acute cardiopulmonary process. No significant interval change.
[2018-06-07] MEDS ORDERED: HYDROCODONE/CHLORPHEN 5 ML/OSYR ONE (17:10)
--- NOTE | 2018-06-07 18:05 | EDPHYS ---
Physician Documentation [facility] Name: Matti Juarez Age: 47 yrs Sex: Male : 1970 Arrival Date: 06/07/2018 Time: 15:47 Bed 26 Private MD: ED Physician Jim Monson HPI: 06/07 16:23 This 47 yrs old Male presents to ER via Ambulatory with complaints of Fever, kb Cough. 16:23 The patient or guardian reports cough, that is intermittent, described as moderate, kb with no sputum, flu symptoms, arthralgias, low-grade fever, myalgias. Onset: The symptoms/episode began/occurred yesterday. Severity of symptoms: At their worst the symptoms were moderate, in the emergency department the symptoms are unchanged. Modifying factors: The symptoms are alleviated by nothing, the symptoms are aggravated by nothing. Associated signs and symptoms: Pertinent positives: chest pain, with breathing, earache, fever, rhinorrhea, sore throat, Pertinent negatives: diarrhea, nausea, vomiting. The patient has not experienced similar symptoms in the past. The patient has not recently seen a physician. Historical: - Allergies: 16:00 Anesthesia; sg 16:00 Aspirin; sg 16:00 atorvastatin; sg 16:00 Iodinated Contrast Media - IV Dye (cardiac arrest); sg 16:00 Requip; sg 16:00 SHELLFISH; sg - PMHx: 16:00 cardiac arrest; Diabetes - NIDDM; heart catheterization; Hypertension; sg - PSHx: 16:00 spinal fusion; sg - Immunization history:: Adult Immunizations up to date. - Social history:: Smoking status: Patient/guardian denies using tobacco. - Ebola Screening: : Patient negative for fever greater than or equal to 101.5 degrees Fahrenheit, and additional compatible Ebola Virus Disease symptoms Patient denies exposure to infectious person Patient denies travel to an Ebola-affected area in the 21 days before illness onset No symptoms or risks identified at this time. ROS: 16:20 Neck: Negative for injury, pain, and swelling, Abdomen/GI: Negative for abdominal pain, kb nausea, vomiting, diarrhea, and constipation, Back: Negative for injury and pain, : Negative for injury, bleeding, discharge, and swelling, MS/Extremity: Negative for injury and deformity, Skin: Negative for injury, rash, and discoloration. 16:20 Constitutional: Positive for body aches, chills, fatigue, fever, malaise, Negative for poor PO intake, weight loss. 16:20 ENT: Positive for rhinorrhea, sinus congestion, sore throat. 16:20 Cardiovascular: Positive for chest pain, Negative for edema, orthopnea, palpitations, paroxysmal nocturnal dyspnea. 16:20 Respiratory: Positive for cough, Negative for dyspnea on exertion, hemoptysis, orthopnea, pleurisy, shortness of breath, sputum production, wheezing. Exam: 16:22 Constitutional: This is a well developed, well nourished patient who is awake, alert, kb and in no acute distress. Head/Face: Normocephalic, atraumatic. Chest/axilla: Normal chest wall appearance and motion. Nontender with no deformity. No lesions are appreciated. Cardiovascular: Regular rate and rhythm with a normal S1 and S2. No gallops, murmurs, or rubs. Normal PMI, no JVD. No pulse deficits. Abdomen/GI: Soft, non-tender, with normal bowel sounds. No distension or tympany. No guarding or rebound. No evidence of tenderness throughout. Skin: Warm, dry with normal turgor. Normal color with no rashes, no lesions, and no evidence of cellulitis. MS/ Extremity: Pulses equal, no cyanosis. Neurovascular intact. Full, normal range of motion. Neuro: Awake and alert, GCS 15, oriented to person, place, time, and situation. Cranial nerves II-XII grossly intact. Motor strength 5/5 in all extremities. Sensory grossly intact. Cerebellar exam normal. Normal gait. 16:22 ENT: External ear(s): are unremarkable, Ear canal(s): are normal, TM's: are normal, Nose: is normal, Mouth: is normal, Posterior pharynx: Airway: normal, no evidence of obstruction, Tonsils: bilaterally enlarged, with erythema, Uvula: normal, midline, swelling, that is moderate, erythema, that is moderate. 16:23 Respiratory: the patient does not display signs of respiratory distress, Respirations: kb normal, Breath sounds: pt reports pain with deep breath . Vital Signs: 15:58 Pulse 107; Resp 19; Temp 98.6; Pulse Ox 100% ; Weight 75.3 kg; Height 5 ft. 6 in. sg (167.64 cm); Pain 10/10; 16:01 BP 147 / 107; sg 16:53 BP 147 / 104; Pulse 101; Resp 19 S; Pulse Ox 97% on R/A; rv 17:30 BP 133 / 90; Pulse 86; Resp 17 S; Pulse Ox 95% on R/A; rv 18:00 BP 125 / 94; Pulse 83; Resp 18 S; Pulse Ox 95% on R/A; rv 15:58 Body Mass Index 26.79 (75.30 kg, 167.64 cm) MDM: 16:03 Patient medically screened. kb 16:20 Data reviewed: vital signs, nurses notes. Data interpreted: Pulse oximetry: on room air kb is 100 %. Interpretation: normal. 16:57 ED course: Pt had an episode of vomiting caused by cough. . kb 17:56 Counseling: I had a detailed discussion with the patient and/or guardian regarding: the kb historical points, exam findings, and any diagnostic results supporting the discharge/admit diagnosis, lab results, radiology results, the need for outpatient follow up, a family practitioner, to return to the emergency department if symptoms worsen or persist or if there are any questions or concerns that arise at home. 06/07 16:11 Order name: Flu; Complete Time: 18:01 kb 06/07 16:11 Order name: Strep; Complete Time: 17:58 kb 06/07 16:11 Order name: Chest Pa And Lat (2 Views) XRAY; Complete Time: 17:04 kb 06/07 17:59 Order name: Throat Culture EDMS Administered Medications: 17:01 Drug: Tussionex Pennkinetic ER 5 ml Route: PO; rv 17:32 Follow up: Response: Pain is decreased rv Disposition: 06/08 07:03 Co-signature as Attending Physician, Jmi Monson MD. rn Disposition: 06/07/18 18:04 Discharged to Home. Impression: Acute upper respiratory infection, unspecified. - Condition is Stable. - Discharge Instructions: Upper Respiratory Infection, Adult, [id number]. - Prescriptions for Tessalon Perles 100 mg Oral Capsule - take 1 capsule by ORAL route every 8 hours As needed; 15 capsule. Albuterol Sulfate 90 mcg/actuation - inhale 1-2 puff by INHALATION route every 4-6 hours; 1 Inhaler. Tamiflu 75 mg Oral Capsule - take 1 capsule by ORAL route every 12 hours for 5 days; 10 capsule. - Medication Reconciliation Form, Thank You Letter, Antibiotic Education, Prescription Opioid Use form. - Follow up: Emergency Department; When: As needed; Reason: Worsening of condition. Follow up: Private Physician; When: 2 - 3 days; Reason: Recheck today's complaints, Continuance of care, Re-evaluation by your physician. Signatures: Dispatcher [employer] EDMS Polly Gracia, OLI-C DIRECTOR OF STRATEGIC ALLIANCES-Nikhil Hadley RN RN sg Nieto, Roman, MD MD rn Vicente, Ronaldo, RN RN rv Corrections: (The following items were deleted from the chart) 06/07 16:23 16:22 Constitutional: This is a well developed, well nourished patient who is awake, kb alert, and in no acute distress. Head/Face: Normocephalic, atraumatic. Chest/axilla: Normal chest wall appearance and motion. Nontender with no deformity. No lesions are appreciated. Cardiovascular: Regular rate and rhythm with a normal S1 and S2. No gallops, murmurs, or rubs. Normal PMI, no JVD. No pulse deficits. Respiratory: Lungs have equal breath sounds bilaterally, clear to auscultation and percussion. No rales, rhonchi or wheezes noted. No increased work of breathing, no retractions or nasal flaring. Abdomen/GI: Soft, non-tender, with normal bowel sounds. No distension or tympany. No guarding or rebound. No evidence of tenderness throughout. Skin: Warm, dry with normal turgor. Normal color with no rashes, no lesions, and no evidence of cellulitis. MS/ Extremity: Pulses equal, no cyanosis. Neurovascular intact. Full, normal range of motion. Neuro: Awake and alert, GCS 15, oriented to person, place, time, and situation. Cranial nerves II-XII grossly intact. Motor strength 5/5 in all extremities. Sensory grossly intact. Cerebellar exam normal. Normal gait. kb 18:11 18:04 06/07/2018 18:04 Discharged to Home. Impression: Acute upper respiratory rv infection, unspecified. Condition is Stable. Discharge Instructions: Upper Respiratory Infection, Adult, [id number]. Prescriptions for Tessalon Perles 100 mg Oral Capsule - take 1 capsule by ORAL route every 8 hours As needed; 15 capsule, Albuterol Sulfate 90 mcg/actuation - inhale 1-2 puff by INHALATION route every 4-6 hours; 1 Inhaler. and Forms are Medication Reconciliation Form, Thank You Letter, Antibiotic Education, Prescription Opioid Use. Follow up: Emergency Department; When: As needed; Reason: Worsening of condition. Follow up: Private Physician; When: 2 - 3 days; Reason: Recheck today's complaints, Continuance of care, Re-evaluation by your physician. kb
--- NOTE | 2018-06-07 18:05 | ER ---
Nurse's Notes [facility] Name: Matti Juarez Age: 47 yrs Sex: Male : 1970 Arrival Date: 06/07/2018 Time: 15:47 Bed 26 Private MD: Diagnosis: Acute upper respiratory infection, unspecified Presentation: 06/07 16:00 Presenting complaint: Patient states: N/V/D for 1-2 days now, pt reports feeling weak sg with bodyaches, and fever. Transition of care: patient was not received from another setting of care. Onset of symptoms was June 07, 2018. Risk Assessment: Do you want to hurt yourself or someone else? Patient reports no desire to harm self or others. Initial Sepsis Screen: Does the patient meet any 2 criteria? RR > 20 per min. HR > 90 bpm. Does the patient have a suspected source of infection? Yes: Productive cough/pneumonia. Care prior to arrival: None. 16:00 Method Of Arrival: Ambulatory sg 16:00 Acuity: JELENA 3 sg Historical: - Allergies: 16:00 Anesthesia; sg 16:00 Aspirin; sg 16:00 atorvastatin; sg 16:00 Iodinated Contrast Media - IV Dye (cardiac arrest); sg 16:00 Requip; sg 16:00 SHELLFISH; sg - PMHx: 16:00 cardiac arrest; Diabetes - NIDDM; heart catheterization; Hypertension; sg - PSHx: 16:00 spinal fusion; sg - Immunization history:: Adult Immunizations up to date. - Social history:: Smoking status: Patient/guardian denies using tobacco. - Ebola Screening: : Patient negative for fever greater than or equal to 101.5 degrees Fahrenheit, and additional compatible Ebola Virus Disease symptoms Patient denies exposure to infectious person Patient denies travel to an Ebola-affected area in the 21 days before illness onset No symptoms or risks identified at this time. Screenin:26 Abuse screen: Denies threats or abuse. Denies injuries from another. Nutritional rv screening: No deficits noted. Tuberculosis screening: No symptoms or risk factors identified. Fall Risk None identified. Assessment: 16:25 General: Appears in no apparent distress. uncomfortable, Behavior is calm, cooperative. rv Pain: Denies pain. Neuro: Level of Consciousness is awake, alert, obeys commands, Oriented to person, place, time, situation. Cardiovascular: Capillary refill < 3 seconds. Respiratory: Airway is patent. GI: No signs and/or symptoms were reported involving the gastrointestinal system. : No signs and/or symptoms were reported regarding the genitourinary system. EENT: No signs and/or symptoms were reported regarding the EENT system. Derm: Skin is intact. Musculoskeletal: No signs and/or symptoms reported regarding the musculoskeletal system. Vital Signs: 15:58 Pulse 107; Resp 19; Temp 98.6; Pulse Ox 100% ; Weight 75.3 kg; Height 5 ft. 6 in. sg (167.64 cm); Pain 10/10; 16:01 BP 147 / 107; sg 16:53 BP 147 / 104; Pulse 101; Resp 19 S; Pulse Ox 97% on R/A; rv 17:30 BP 133 / 90; Pulse 86; Resp 17 S; Pulse Ox 95% on R/A; rv 18:00 BP 125 / 94; Pulse 83; Resp 18 S; Pulse Ox 95% on R/A; rv 15:58 Body Mass Index 26.79 (75.30 kg, 167.64 cm) sg ED Course: 15:47 Patient arrived in ED. as 15:58 Arm band placed on. sg 16:01 Triage completed. sg 16:02 Polly Gracia FNP-C is [facility]. kb 16:02 Jim Monson MD is Attending Physician. kb 16:09 Hilario Chopra, USMAN is Primary Nurse. la1 16:26 Patient has correct armband on for positive identification. Bed in low position. Call rv light in reach. Side rails up X 1. Pulse ox on. NIBP on. 16:43 Patient moved to radiology via wheelchair. sg4 16:43 X-ray completed. Patient tolerated procedure well. sg4 16:44 Chest Pa And Lat (2 Views) XRAY In Process Unspecified. EDMS 18:07 No provider procedures requiring assistance completed. Patient did not have IV access rv during this emergency room visit. Administered Medications: 17:01 Drug: Tussionex Pennkinetic ER 5 ml Route: PO; rv 17:32 Follow up: Response: Pain is decreased rv Outcome: 18:04 Discharge ordered by . kb 18:07 Discharged to home ambulatory. rv 18:07 Condition: good 18:07 Discharge instructions given to patient, Instructed on discharge instructions, follow up and referral plans. medication usage, Demonstrated understanding of instructions, follow-up care, medications, Prescriptions given X 3. 18:11 Patient left the ED. rv Signatures: Dispatcher [employer] EDPolly Glass, RAFITA BAIRD-Nikhil Hadley, RN RN Mary Cano Lee, RN RN la1 Smith Church RN RN rv Garcia, Susana sg4
[2018-06-07 18:17] VITALS: TEMP 98.6
[2018-06-07 18:21] VITALS: O2SAT 95
[2018-06-07 18:23] VITALS: BP 125/94
== END 2018-06-07 18:11 | disposition home or self-care (01) ==
LOC: ER 15:45
DX: J06.9 Acute upper respiratory infection, unspecified (principal); I10 Essential (primary) hypertension; Z88.4 Allergy status to anesthetic agent; Z88.6 Allergy status to analgesic agent; Z88.8 Allergy status to other drugs, medicaments and biological substances; Z91.013 Allergy to seafood; Z91.041 Radiographic dye allergy status
CPT/HCPCS: 71046; 87070; 87081; 87804; 99284

== ENCOUNTER 2020-06-14 14:20 | Emergency (ER) | payer OTHER ==
--- OUTSIDE RECORDS SUMMARY | 2020-06-14 14:23 | XMS REPORT | Clinical Summary ---
:1970 Author Organization [facility] Address [address] [place] [address] Care Team Providers Name Role Phone New Zacarias D.O. Primary Care Provider [phone] Allergies Active Allergy Reactions Severity Noted Date Comments Aspirin GI Bleeding High 10/11/2016 GI bleeding Atorvastatin Other (See Comments) Low 12/09/2017 Cough Iodine Hives 05/19/2007 IV iodine and i odine -Cardiac arrest Other 10/11/2016 Anesthesia: dur ing Gallbladder and back surgery pt went into cardiac arrest. ([facility]). Ropinirole 10/11/2016 Hypotensive for 2 days. Shellfish Derived Anaphylaxis High 10/11/2016 Cardiac ar rest Medications Medication Sig Dispensed Refills Start Date End Date Status metFORMIN (GLUCOPHAGE) Take 1,000 mg by 0 Active 1,000 mg tablet mouth 2 (two) times a day with meals. BD ULTRA-FINE LILY PEN USE BID UTD 1 03/13/2017 Active NEEDLES 32 gauge x 5/32" needle ACCU-CHEK GUIDE strip DIRECTED TID 4 04/18/2017 Active test strips ACCU-CHEK GUIDE GLUCOSE TK DIRECTED 1 04/15/2017 Active METER misc ACCU-CHEK FASTCLIX misc TEST TID 4 04/15/2017 Active DIRECTED LYRICA 200 mg capsule Take 1 tablet by 0 09/23/2017 Active mouth 3 (three) times a day. sertraline (ZOLOFT) 50 Take 50 mg by 0 Active MG tablet mouth daily. traZODone (DESYREL) 50 Take 50 mg by 0 Active MG tablet mouth nightly. promethazine Take 25 mg by 0 Act bipin (PHENERGAN) 25 MG mouth every 6 tablet (six) hours as needed for nausea or vomiting. rosuvastatin (CRESTOR) Take 10 mg by 0 Active 10 MG tablet mouth nightly. empagliflozin Take 10 mg by 0 Ac tive (JARDIANCE) 10 mg mouth every tablet tablet morning. amLODIPine (NORVASC) 5 Take 5 mg by 0 Active mg tablet mouth daily. Active Problems Problem Noted Date Generalized weakness 05/04/2018 Arthralgia of multiple sites 05/01/2018 Obesity (BMI 30-39.9) 02/26/2018 Cellulitis 12/21/2017 Essential hypertension 12/09/2017 Mixed hyperlipidemia 12/09/2017 Chest pain, rule out acute myocardial infarction 02/10 Surgical History Surgery Date Site/Laterality Comments LUMBAR FUSION 2001 SPINAL CORD STIMULATOR IMPLANT 2 003 CHOLECYSTECTOMY, LAPAROSCOPIC 20 12. Carrdiac arrest x 2 in OR and PACU. CARDIAC CATHETERIZATION 2015 and 07/2016 no stents REPLACEMENT, NEUROSTIMULATOR 10/17/2016 N/A Pro cedure: REPLACEMENT OF GENERATOR OR INFUSION PUMP DORSA L COLUMN STIMULATOR BATTERY ; Surge on: Eliezer Gauthier MD; Location: [facility] OP C 19 OR; Service: Anesthe siology; Laterality: N/A; Medical devices from this surgery are in t he Implants section. INJECTION, FACET JOINT, LUMBAR, 01/02/2017 N/A Procedure: BILATERAL L3-4 PARAVERTEBRAL, FOR NERVE BLOCK L 4-5 L5-S1 LUMBAR FACET INJECTION ; [place] geon: Eliezer Gauthier MD; Location: [facility] OP C 19 OR; Service: Anesthe siology; Laterality: N/A; CHOLECYSTECTOMY INSERTION, CATHETER, 09/11/2017 N/A Procedure: INTRATHECAL, FOR INTRATHECAL, FOR PAIN PUMP TRIAL PAIN PUMP TRIAL; Surgeon: Eliezer Gauthier MD; Location: [facility] OP C 19 OR; Service: Pain Kacy alicia; Laterality: N/A; INSERTION, PUMP, TRIAL, FOR PAIN 12/18/2017 N/A Procedure: INSERTION PAIN PUMP FENTANYL; Surgeon: Eliezer Gauthier MD; Location: [facility] OP C 19 OR; Service: Pain Ma ravin; Laterality: N/A; Medical devices from this surgery are in t he Implants section. Medical History Medical History Date Comments Coronary artery disease Hypertension Sleep apnea, obstructive has CPAP. Does not use CPAP. asked to bring mask day rg. PONV (postoperative nausea and vomiting) Type 2 diabetes mellitus (HCC) GERD (gastroesophageal reflux disease) s evere Asthma wheezing. no attacks . 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 States will pass by the plants and will become SOB or will j ust be sitting and becomes SOB. Happens multiple times a week to once a month . Snoring Claustrophobia when tied down. TIA (transient ischemic attack) x 2 11/11 016, 04/2016 hospitalized. not on any blood thinner s. Back pain radiates to henok. low er ext. with numbness Glaucoma Work place accident 03/27/2000 H/O being hospitalized 04/2016 due to e levated BP, elvated Blood sugar, and TIA Angina pectoris (HCC) almost everyday Lupus (HCC) Stroke (HCC) Cardiac arrest (HCC) per pt had cardiac arrest during gallbladder surgery Lupus (HCC) Family History Medical History Relation Name Comments [...] Assigned at Date Recorded Not on file Last Filed Vital Signs Not on file Plan of Treatment Health Maintenance Due Date Last Done Comments DIABETES: RETINAL EYE EXAM 1980 DIABETIC FOOT EXAM 1980 URINE MICROALBUMIN 1980 COVID-19 VACCINE (1 of 2) 1986 INFLUENZA VACCINE 12/12/2019 Implants Implanted 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 SPITAL DEVICES GICAL [id number] / N/A Patient Brewer Helper - [id number] IMPLANT N/A: N/A [employer]-NEUROLO [id number] / Implanted: Qty: 1 on 10/17/2016 by Eliezer Gauthier MD at [facility] [employer] GICAL / Charging System, W Sensor, Spinal Stimulation, Ea - [id number] IMPLANT N/A: N/A [employer]-NEUROLO [id number] / Implanted: Qty: 1 on 10/17/2016 by Eliezer Gauthier MD at [facility] [employer] DEV[employer] GICAL / Kit Pckt Adptr For Scs 2x4in - [id number] Neurosurgical N/A: N/A [employer] 01/23/2020 [id number] / Implanted: Qty: 1 on 10/17/2016 by Eliezer Gauthier MD at [facility] Implants NEUROMODULATION / [id number] Pump Infsn Synchromed Ii W/ Fltr Sut Loo p Prgrmbl Rsvr 20ml - [id number] - [id number] Neurosurgical Right: [employer] 05/26/2019 [id number] / Implanted: Qty: 1 on 12/18/2017 by Eliezer Gauthier MD at [facility] Implants Abdomen, NEUROMODULATION [id number] / Lower [id number] Quadrant Passer Cath W/ Rmvbl Hndl And Ppe Obtrtr 38cm Strl - [id number] Neurosurgical N/A: N/A [employer] [facility] 10/10/2022 [id number] / Implanted: Qty: 1 on 12/18/2017 by Eliezer Gauthier MD at [facility] Implants NEUROLOGICAL / [id number] Results Not on fileafter 06/14/2019 Insurance Payer Benefit Plan / Subscriber ID Effective Dates Phone Addre ss Type Group [facility] MEDICARE [facility] DUAL COMPLETE [id number] 2016-Present [facility] MEDICAID MEDICAID [id number] 2016-Present Med icaid Advance Directives For more information, please contact: [phone] Type Date Recorded Patient Technical Service Specialist Explanati on Advance Directives, 10/29/2017 7:57 PM Living Will and Medical Power of Forging Engineer Advance Directives, 12/18/2017 7:51 AM Living Will and Medical Power of Forging Engineer
--- OUTSIDE RECORDS SUMMARY | 2020-06-14 14:23 | XMS REPORT | Summary of Care ---
:1970 Author Organization [facility] Address [address] [place] [id number] Care Team Providers Name Role Phone Chriss Wnog Service/Team Unavailable Leandro Molina MD Primary Care Provider Unavailable Reason for Visit Reason Comments Refill Request hydrOXYzine 50 mg tablet Encounter Details Date Type Department Care Team Description 04/04/2020 Refill [facility] Internal Leandro Molina Refill Request Medicine- Winston Deras MD (hydrOXYzine 50 mg [facility] n tablet) [address], [address] [place] [address] Allergies Active Allergy Reactions Severity Noted Date Comments Aspirin Other - See comments High 10/11/2016 GI blee ding Other reaction( s): GI Bleeding GI bleeding Atorvastatin Unknown - See comments, Low 12/09/2017 Coug h Other - See comments Cough Iodine Hives 05/19/2007 IV iodine and i odine -Cardiac arrest Lisinopril Cough Medium 02/26/2018 Persistent coug h Ropinirole Other - See comments High 10/11/2016 Severe hypotension Hypotensive for 2 days. Seafood/Fish Anaphylaxis High 12/02/2018 Shellfish Derived Palpitations, High 10/11/2016 Cardiac a rrest Anaphylaxis documented as of this encounter (statuses as of 04/04/2020) Medications Medication Sig Dispensed Refills Start End Status Date Date lancets 31 gauge Use as directed 100 Each 2 03/04/20 Active Misc 18 blood sugar Use as directed 1 Box 2 03/04/20 Ac tive diagnostic 18 (ACCU-CHEK SMARTVIEW TEST STRIP) strip rosuvastatin 10 mg Take 1 tablet by 30 tablet 5 12/05/19 Active tabletIndications: mouth at 19 Essential bedtime. hypertension, Chest pain, unspecified type nitroglycerin 0.[address] 1 tablet 1 Bottle 2 12/05/19 Active sublingual under the tongue 19 tabletIndications: every 5 (five) Essential minutes as hypertension, Chest needed for Chest pain, unspecified pain. type metoprolol tartrate Take 0.5 tablets 30 tablet 5 12/05/19 Active 25 mg by mouth 2 (two) 19 tabletIndications: times daily. Essential hypertension, Chest pain, unspecified type ondansetron (ZOFRAN) Take 4 mg by 0 Active 4 mg tablet mouth 2 (two) times daily as needed for Nausea and Vomiting (N/V). HYDROmorphone 4 mg Take 4 mg by 0 Active tablet mouth 2 (two) times daily as needed. amLODIPine 10 mg Take 1 tablet by 30 tablet 2 12/31/19 Active tabletIndications: mouth daily. 19 Essential hypertension, Chest pain, unspecified type sennosides (SENOKOT) Take 1 tablet by 30 tablet 2 12/31/19 Active 8.6 mg mouth daily. 19 tabletIndications: Constipation, unspecified constipation type tamsulosin 0.4 mg 24 Take 1 capsule 30 capsule 1 04/22/20 Active hr by mouth daily. 19 capsuleIndications: Benign localized prostatic hyperplasia with lower urinary tract symptoms (LUTS) albuterol (PROAIR Inhale 2 Puffs 8.5 g 0 04/28/20 Active HFA) 90 every 6 (six) 19 mcg/actuation hours as needed inhalerIndications: for Wheezing, Moderate persistent Shortness of asthma without Breath or Chest complication tightness. fluticasone Use 1 [place] in 16 g 5 04/28/20 Act bipin propionate 50 each nostril 2 19 mcg/actuation nasal (two) times sprayIndications: daily. Chronic rhinitis EPINEPHrine (EPIPEN 0.3 mL by 2 Each 0 04/28/20 Active 2-JOVI) 0.3 mg/0.3 mL Intramuscular 19 injectionIndications route as needed : Adverse food (anaphylaxis). reaction, initial encounter esomeprazole 20 mg Take 40 mg by 60 capsule 2 04/30/20 Active capsuleIndications: mouth daily. 19 Gastroesophageal reflux disease, esophagitis presence not specified CLOPIDOGREL 75 mg TAKE 1 TABLET BY 90 tablet 0 08/03/19 Active tablet MOUTH DAILY 20 SERTraline 50 mg Take 1 tablet by 90 tablet 1 08/03/19 Active tabletIndications: mouth daily. 20 RICH (generalized anxiety disorder) budesonide-formotero Inhale 2 Puffs 2 10.2 g 11 08/07/19 Active L (SYMBICORT) (two) times 20 160-4.5 daily. mcg/actuation inhalerIndications: Moderate persistent asthma without complication hydrOXYzine 50 mg Take 1 tablet by 90 tablet 1 04/04/20 Active tabletIndications: mouth 3 (three) 20 Anxiety times daily as needed for Anxiety. hydrOXYzine 50 mg Take 1 tablet by 90 tablet 1 01/30/2004/04 Discontinued tabletIndications: mouth 3 (three) 19 020 (Reorder) Anxiety times daily as needed for Anxiety. 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 12/09/2017 cerebral infarction documented as of this encounter (statuses as of 04/04/2020) Immunizations Name Administration Dates Next Due Influenza Virus Vaccine Quad .5 mL 04/22/2019 IM 6+ MO TDAP (ADACEL) VACCINE 04/22/2019 (Deferred: Patient Refused - not covered in by insurance in clinic) documented as of this encounter Social History Tobacco Use Types Packs/Day Years Used Date Never Smoker Smokeless Tobacco: Never Used Alcohol Use Drinks/Week oz/Week Comments No Sex Assigned at Date Recorded Not on file documented as of this encounter Last Filed Vital Signs Not on filedocumented in this encounter Plan of Treatment Health Maintenance Due Date Last Done Comments PNEUMOCOCCAL 0-64 YEARS COMBINED 1976 SERIES (1 of 3 - PCV13) DTaP,Tdap,and Td Vaccines (1 - 1989 Tdap) LDL-C 12/03/2019 12/02/2018 INFLUENZA VACCINE (#1) 2020 04/22/2019 HgA1C 02/13/2020 08/14/2019, 04/22/2019, 12/03/2018, Additional history exists FOOT EXAM 04/22/2020 04/22/2019, 04/22/2019 URINE MICROALBUMIN 04/22/2020 04/22/2019, 03/04/2018 Depression Screening 04/30/2020 04/30/2019 EYE EXAM 05/11/2020 05/11/2019, 04/07/2018, 03/05/2018, Additional history exists CREATININE (SERUM) 09/09/2020 09/10/2019, 08/14/2019, 04/22/2019, Additional history exists Colorectal Cancer Screening 2020 documented as of this encounter Implants Implanted Type 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 Vegetable 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 Device Shelf Model / Identifier Expiration Serial / Date Lot Neurostimulator Neurostimulator Right: Back Pain Pump Pain Pump documented as of this encounter Results Not on filedocumented in this encounter Visit Diagnoses Diagnosis Anxiety Anxiety state, unspecified documented in this encounter Insurance Payer Benefit Plan / Subscriber ID Effective Phone Address T ype Group Dates [facility] [id number] 2019-Pres Medica re HEALTHCARE - HEALTHCARE ent Adv HM O MANAGED DUAL COMPLETE MEDICARE [facility] MEDICAID OF [id number] 2018-Pre [phone] Medi caid [place] sent [id number] [place] [address] [facility] [id number] 2017-Pres Medica re HEALTHCARE - HEALTHCARE ent Adv PP O MANAGED DUAL COMPLETE MEDICARE documented as of this encounter
--- OUTSIDE RECORDS SUMMARY | 2020-06-14 14:23 | XMS REPORT | Continuity of Care Document ---
:1970 Author Organization [facility] t Address [address] [place] [address] Care Team Providers Name Role Phone NONE Primary Care Physician Unavailable Braeden Molina MD Attending Clinician Unavailable Doctor Unassigned, Name Attending Clinician Unavailable Vtc-Lab Attending Clinician Unavailable Pcp-Lab Attending Clinician Unavailable Pb BRYSON Attending Clinician Rachelle BRYSON L Attending Clinician KATELYN Attending Clinician Unavailable Payers Payer Name Policy Type Policy Number Effective Date Expiration Date S ource Problems Condition Condition Condition Status Onset Resolution Last Treating Co mments Source Name Details Category Date Date Treatment Clinician Date Generalize Generalize Disease Active 2017-05 H cora d weakness d weakness 2-23 Me thodi 00:00: st 00 Arthralgia Arthralgia Disease Active 2017-05 H oujaneth of of 2-20 Methodi multiple multiple 00:00: st sites sites 00 Obesity Obesity Disease Active 2017-05 [place] (BMI (BMI 0-17 Methodi 30-39.9) 30-39.9) 00:00: st 00 Cellulitis Cellulitis Disease Active [place] 8-11 Methodi 00:00: st 00 Essential Essential Disease Active Ramila ston hypertensi hypertensi 7-30 Me thodi on on 00:00: st 00 Mixed Mixed Disease Active [place] hyperlipid hyperlipid 7-30 Me thodi emia emia 00:00: st 00 Chest Chest Disease Active 2016-05 [place] pain, rule pain, rule 0-01 Me thodi out acute out acute 00:00: st myocardial myocardial 00 infarction infarction History of History of Problem Resolve Univers Diabetes Diabetes d ity of mellitus mellitus [place] [facility]ici ans History of History of Problem Resolve Univers essential essential d ity of hypertens[place]ici ans History of History of Problem Resolve Univers hyperchole hyperchole d it y of sterolemia [place]olemia [place] [facility] Dermatitis Dermatitis Problem Active U nivers [place] [facility] [place] [facility] 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 [facility] [place] [facility] Need for Need for Problem Active Unive rs hepatitis hepatitis ity of C C [place] screening screening Phys ici test test ans Screening Screening Problem Active Uni vers for skin for skin [place] condition [place] Low back Low back Problem Active Unive rs pain pain ity of [place] Physici ans Allergies, Adverse Reactions, Alerts Allergy Allergy Status Severity Reaction(s) Onset Inactive Treating Comm ents Source Name Type Date Date Clinician lisinopr DA Active [place] [facility] il 4-05 [place] 00:00: d 00 [facility] iodine DA Active SV [facility] 4-05 [place] 00:00: d 00 [facility] [place] lorazepa DA Active [place] [facility] m 4-05 [facility] 00:[facility]: d 00 [facility] aspirin DA Active [place] 2019-0 [facility] 4-05 [place] 00:00: d 00 [facility] ropiniro DA Active [place] 2019-0 [facility] le 4-05 [place] 00:00: d 00 [facility] lisinopr DA Active [place] 2019-0 [facility] il 3-31 [place] 00:00: d 00 [facility] iodine DA Active SV 2019-0 [facility] 3-31 [place] 00:00: d 00 [facility] lorazepa DA Active [place] 2019-0 [facility] m 3-31 [facility] 00:00: d 00 [facility] aspirin DA Active [place] 2019-0 [facility] 3-31 [place] 00:00: d 00 [facility] ropiniro DA Active [place] 2019-0 [facility] le 3-31 [facility] 00:00: d 00 [facility] iodine DA Active SV 2019-0 [facility] 1-05 [place] 00:00: d 00 [facility] lisinopr DA Active [place] 2019-0 [facility] il 1- [place] 00:00: d 00 [facility] iodine DA Active [place] 2019-0 [facility] 1- [place] 00:00: d 00 [facility] lorazepa DA Active [place] 2019-0 [facility] m 1-01 [place] 00:00: d 00 [facility] aspirin DA Active [place] 2019-0 [facility] 1-01 [place] 00:00: d 00 [facility] ropiniro DA Active [place] 2019-0 [facility] le 1-01 [place] 00:00: d 00 [facility] lorazepa DA Active [place] 2018-1 [facility] m 0-14 [place] 00:00: d 00 [facility] [place] lisinopr DA Active [place] 2018-0 [facility] il 8-25 Clear 00:00: Faria 00 [facility] iodine DA Active [place] 2018-0 [facility] 8-25 Clear 00:00: Faria 00 [facility] aspirin DA Active [place] 2018-0 [facility] 8-25 Clear 00:00: Faria 00 [facility] ropiniro DA Active [place] 2018-0 [facility] le 8-25 Clear 00:00: Faria 00 [facility] Atorvast Propensi Active Other (See Cough [place] atin ty to Comments) 12-09 Methodi adverse 00:00: st reaction 00 s to drug Aspirin Propensi Active GI Bleeding GI [place] ty to 10-11 bleeding Methodi adverse 00:00: st reaction 00 s to drug Other Propensi Active 2017-0 Anesthesi [place] ty to 10-11 a: during Methodi adverse 00:00: Gallbladd st reaction 00 er and s back surgery pt went into cardiac arrest. ([facility]) . Ropiniro Propensi Active Hypotensi Ramila ston le ty to 10-11 ve for 2 Methodi adverse 00:00: days. st reaction 00 s to drug Shellfis Propensi Active Anaphylaxis Cardiac Lewis h ty to 10-11 arrest Methodi Derived adverse 00:00: st reaction 00 s to drug Iodine Propensi Active Hives IV iodine [place] ty to 05-19 and Methodi adverse 00:00: iodine st reaction 00 -Cardiac s to arrest drug Iodine drug Active Univers SOLN allergy [facility] [place] [facility] Family History Family Member Diagnosis Comments Start Date Stop Date Source Natural brother Leukemia [facility] ethodist Natural father Diabetes type II [place] Natural father Hypertension [place] Natural father Stroke [place] Me thodist Maternal grandfather No Known Problems [place] Maternal grandmother Cancer [place] Maternal grandmother Diabetes [place] Natural mother Diabetes [place] Me thodist Natural mother Hypertension [place] Natural mother Stroke [place] [facility]ist Paternal grandfather No Known Problems [place] Paternal grandmother No Known Problems [place] Natural sister Cancer [place] Me thodist Natural sister Diabetes type II [place] Natural sister Ovarian cancer [place] Social History Social Habit Start Date Stop Date Quantity Comments Source Sex Assigned At [facility] ethodist Tobacco use and 2018-05-01 2018-05-01 Never used [facility] ethodist exposure 00:00:00 00:00:00 Alcohol intake 2018-05-01 2018-05-01 Current [facility] thodist 00:00:00 00:00:00 non-drinker of alcohol (finding) Smoking Status Start Date Stop Date Source Never smoker [place] Methodis t Medications Ordered Filled Start Stop Current Ordering Indication Dosage Frequency Signature Comments Components Source Medication Medication Date Date Medication? Clinician (SIG) Name Name metFORMIN Yes 1000mg Q.5D Take 1,000 Lewis (GLUCOPHAGE 2-14 mg by Methodi ) 1,000 mg 08:46: mouth 2 st tablet 09 (two) times a day with meals. sertraline Yes 50mg QD Take 50 mg H oujaneth (ZOLOFT) 50 2-14 by mouth Meth craig MG tablet 08:46: daily. st 09 traZODone Yes 50mg QD Take 50 mg [place] (DESYREL) 2-14 by mouth Method i 50 MG 08:46: nightly. st tablet 09 promethazin Yes 25mg Q6H Take 25 mg Lewis e 2-14 by mouth Methodi (PHENERGAN) 08:46: every 6 st 25 MG 09 (six) tablet hours as needed for nausea or vomiting. rosuvastati Yes 10mg QD Take 10 mg Lewis n (CRESTOR) 2-14 by mouth Meth craig 10 MG 08:46: nightly. st tablet 09 empaglifloz Yes 10mg QD Take 10 mg Lewis in 2-14 by mouth Methodi (JARDIANCE) 08:46: every st 10 mg 09 morning. tablet tablet amLODIPine Yes 5mg QD Take 5 mg Ho usbarry (NORVASC) 5 2-14 by mouth Meth craig mg tablet 08:46: daily. st 09 LYRICA 200 Yes 1{tbl} [id number] Take 1 Lewis mg capsule 5-14 [id number] tablet by Methodi 00:00: 3D mouth 3 st 00 (three) times a day. PredniSONE PredniSONE Yes ZHEN TAPER Univers 20 MG Oral 20 MG Oral 1-18 KATELYN donnelly of Tablet Tablet 00:00: M.D. [place] 00 3 PILLS, Physici BY MOUTH, ans DAILY X 5 DAYSTHEN 2 PILLS DAILY X 5 DAYSTHEN 1 PILL DAILY X 5 DAYS, UNTIL COMPLETE ACCU-CHEK 2016-05 Yes [place] GUIDE strip 2-07 DIRECTED Meth craig test strips 00:00: TID st 00 ACCU-CHEK 2016-05 Yes TK Lewis GUIDE 2-04 DIRECTED Methodi GLUCOSE 00:00: st METER misc 00 ACCU-CHEK 2016-05 Yes TEST TID [place] FASTCLIX 2-04 Methodi misc 00:00: DIRECTED st 00 BD 2016-05 Yes USE BID Lewis ULTRA-FINE 1-01 UTD Methodi LILY PEN 00:00: st NEEDLES 32 00 gauge x 5/32" needle PredniSONE PredniSONE 2013-05 Yes RIN Take 3 Univers 20 MG Oral 20 MG Oral 0-21 JIE-TIGH tablets PO ity of Tablet Tablet 00:00: M.D. QAM [place] 2 [place] 00 [place], then Physici 2 tablets ans PO QAM for 3 days, then take 1 tablet PO QAM for 3 days, then take 1/2 tab PO QAM daily Pilocarpine Pilocarpine 2013-05 Yes RIN Q0.3333D TAKE 1 Univers HCl - 5 MG HCl - 5 MG 0-11 JIE-TIGH TABLET 3 ity of Oral Tablet Oral Tablet 00:00: M.D. TIMES [place] 00 DAILY. Physici ans Gabapentin Gabapentin Yes Uni vers 300 MG Oral 300 MG Oral i ty of Capsule Capsule [place] Physici ans MetFORMIN MetFORMIN Yes Unive rs HCl - 500 HCl - 500 ity o f MG Oral MG Oral [place] Tablet Tablet Physici ans Lyrica 25 Lyrica 25 Yes Unive rs MG Oral MG Oral ity of Capsule Capsule [place] [facility]ici [facility] Norvasc 5 Norvasc 5 Yes Unive rs MG Oral MG Oral ity of Tablet Tablet [place] [facility] Simvastatin Simvastatin Yes U nivers TABS TABS ity of [place] [facility]ici ans Triamcinolo Triamcinolo Yes U nivers ne ne ity of Acetonide Acetonide [place] CREA CREA Physici ans Zofran TABS Zofran TABS Yes U nivers ity of [place] [facility]ici ans Hydrocodone Hydrocodone Yes U nivers -Acetaminop -Acetaminop i ty of hen TABS hen TABS [place] [facility] Meclizine Meclizine Yes Unive rs HCl TABS HCl TABS ity of [place] [facility]ici ans Cipro 500 Cipro 500 Yes Unive rs MG Oral MG Oral ity of Tablet Tablet [place] [facility] Procedures Procedure Date / Time Performed Performing Clinician [facility] e CT Spine lumbar 2017-05-30 00:00:00 [place] myelogram [address] Physicians Plan of Care Planned Activity Planned Date Details Comments Source Future Scheduled 2019-12-12 INFLUENZA VACCINE [place] Test 00:00:00 [code = INFLUENZA VACCINE] Future Scheduled 1986 COVID-19 VACCINE (1 of H [place]a [facility] Test 00:00:00 2) [code = COVID-19 VACCINE (1 of 2)] Future Scheduled 1980 DIABETES: RETINAL EYE [place] [facility] Test 00:00:00 EXAM [code = DIABETES: RETINAL EYE EXAM] Future Scheduled 1980 DIABETIC FOOT EXAM [place] [facility] Test 00:00:00 [code = DIABETIC FOOT EXAM] Future Scheduled 1980 URINE MICROALBUMIN [place] [facility] Test 00:00:00 [code = URINE MICROALBUMIN] Encounters Start End Encounter Admission Attending Care Care Encounter Source Date/Time Date/Time Type Type Clinicians Facility Department ID 2020-04-04 2020-04-04 Refill Jesse [facility] [id number] 00:00:00 00:00:00 Leandro Deras PRIMARY [id number] CARE [id number] PAVILLION [id number] 2019-11-20 2019-11-20 Telephone Jesse [facility] [id number] 00:00:00 00:00:00 Leandro Deras PRIMARY [id number] CARE [id number] PAVILLION [id number] 2019-11-13 2019-11-13 Telephone Jesse [facility] [id number] 00:00:00 00:00:00 Leandro Deras PRIMARY [id number] CARE [id number] PAVILLION [id number] 2019-09-29 2019-09-29 Patient Doctor [facility] [id number] 00:00:00 00:00:00 Secure Msg Unassigned, PRIMARY [id number] [place] CARE [id number] PAVILLION [id number] 2019-09-15 2019-09-15 Telephone Jesse [facility] [id number] 00:00:00 00:00:00 Leandro Deras PRIMARY [id number] CARE [id number] PAVILLION [id number] 2019-09-10 2019-09-10 Dyed Raw Stock Blower Feeder Vtc-Lab [facility] [id number] 12:34:34 12:44:34 Visit MULTISPEC [id number] IALTY 4.2.7.2.686 CENTER [id number] [facility] 2019-08-18 2019-08-18 Patient Jesse [facility] [id number] 00:00:00 00:00:00 Secure Msg Leandro Deras PRIMARY [id number] CARE [id number] PAVILLION [id number] 2019-08-17 2019-08-17 Patient Doctor [facility] [id number] 00:00:00 00:00:00 Secure Msg Unassigned, PRIMARY [id number] [place] CARE [id number] PAVILLION [id number] 2019-08-14 2019-08-14 Dyed Raw Stock Blower Feeder Pcp-Lab [facility] [id number] 11:02:02 11:12:02 Visit PRIMARY [id number] CARE [id number] PAVILLION [id number] 2019-08-12 2019-08-12 [facility] [id number] 14:32:03 15:02:03 ne Visit Salvatore PRIMARY [id number] CARE [id number] PAVILLION [id number] 2019-08-12 2019-08-12 Telephone Jesse [facility] [id number] 00:00:00 00:00:00 Leandro Deras PRIMARY [id number] CARE [id number] PAVILLION [id number] 2019-08-07 2019-08-10 [facility]ici [facility] [id number] 08:31:45 15:00:40 ne Visit Kay DARBYPEC [id number] IALTY 4.2.7.2.686 [facility] [id number] [facility] 2017-07-31 2017-07-31 Emergency E MCSETX MED [id number] Medical 19:16:00 19:16:00 [facility] 2017-05-30 2017-05-30 AURELIA [facility] 3 [id number] [facility] 13:00:00 13:00:00 t; Jinny FONTAINE it y of [place] ZEPEDA Physici M.D. ans 2017-04-23 2017-04-23 Appointmen AURELIA ZEPEDA UTP [id number] [facility] 09:15:00 09:15:00 t; Jinny FONTAINE it y of [place] Physici M.D. ans Results Test Description Test Time Test Comments Results Result Comments Source GLUBED 2018-08-14 11:32:00 Test Item Value Reference Range Interpretation Comme nts GLUBED (test code = GLUBED) 155 mg/dL 70-110 H BASIC METABOLIC [id number] 06:26:00 Test Item Value Reference Range Interpretation Comments SODIUM (test code = NA) 141 mmol/l 134.0-147.0 N POTASSIUM (test code = K) 3.9 mmol/L 3.6-5.2 N CHLORIDE (test code = CL) 106 mmol/l 98.0-107.0 N CARBON DIOXIDE (test code = CO2) 27.8 mmol/l 21.0-33.0 N ANION GAP (test code = GAP) 11.1 0-20 N GLUCOSE (test code = GLU) 174 mg/dl 70.0-110.0 H BLOOD UREA NITROGEN (test code = 16 mg/dl 7.0-18.0 N BUN) CREATININE (test code = CREAT) 0.77 mg/dL 0.60-1.30 N GFR NON BLACK (test code = 115 mL/min 95-105 H GFRNONBLACK) GFR BLACK (test code = GFRBLACK) 139 mL/min 115-127 H CALCIUM (test code = CA) 8.0 mg/dl 8.0-10.5 N CBC W/AUTO [id number] 06:04:00 Test Item Value Reference Range Interpretation Comments WHITE BLOOD CELL (test code = 16.1 K/mm3 4.5-11.0 H WBC) RED BLOOD CELL (test code = 4.97 M/mm3 4.40-5.90 N RBC) HEMOGLOBIN (test code = HGB) 14.5 gm/dL 13.0-17.0 N HEMATOCRIT (test code = HCT) 44.5 % 36.0-48.0 N MEAN CELL VOLUME (test code = 89.5 UM3 80.0-94.0 N MCV) MEAN CELL HGB (test code = MCH) 29.2 UUG 25.5-32.5 N MEAN CELL HGB CONCETRATION 32.6 gm/dL 29.0-35.5 N (test code = MCHC) RED CELL DISTRIBUTION WIDTH 14.3 % 11.5-15.0 N (test code = RDW) RED CELL DISTRIBUTION WIDTH SD 46.5 fL 34.8-50.2 N (test code = RDW-SD) PLATELET COUNT (test code = 161 K/mm3 150-400 N PLT) MEAN PLATELET VOLUME (test code 13.5 fl 7.4-10.4 H = MPV) NEUTROPHIL % (test code = NT%) 74.0 % 49.0-76.0 N IMMATURE GRANULOCYTE % (test 0.9 % 0.0-0.4 H code = IG%) LYMPHOCYTE % (test code = LY%) 18.0 % 23.0-38.0 L MONOCYTE % (test code = MO%) 6.7 % 1.0-10.0 N EOSINOPHIL % (test code = EO%) 0.1 % 1.0-5.0 L BASOPHIL % (test code = BA%) 0.3 % 0.0-1.0 N NEUTROPHIL # (test code = NT#) 11.9 K/mm3 2.4-6.3 H IMMATURE GRANULOCYTE # (test 0.15 x10 3/uL 0.00-0.07 H code = IG#) LYMPHOCYTE # (test code = LY#) 2.9 K/mm3 1.2-4.0 N MONOCYTE # (test code = MO#) 1.1 K/mm3 0.0-0.6 H EOSINOPHIL # (test code = EO#) 0.0 K/MM3 0.0-0.7 N BASOPHIL # (test code = BA#) 0.1 K/mm3 0.0-0.2 N [id number] 05:50:00 Test Item Value Reference Range Interpretation Comments GLUBED (test code = GLUBED) 163 mg/dL 70-110 H [id number] 00:32:00 Test Item Value Reference Range Interpretation Comments GLUBED (test code = GLUBED) 216 mg/dL 70-110 H [id number] 05:57:00 Test Item Value Reference Range Interpretation Comments GLUBED (test code = GLUBED) 147 mg/dL 70-110 H [id number] 00:14:00 Test Item Value Reference Range Interpretation Comments GLUBED (test code = GLUBED) 169 mg/dL 70-110 H [id number] 16:32:00 Test Item Value Reference Range Interpretation Comments GLUBED (test code = GLUBED) 132 mg/dL 70-110 H [id number] 11:51:00 Test Item Value Reference Range Interpretation Comments GLUBED (test code = GLUBED) 170 mg/dL 70-110 H CARDIAC ENZYMES [id number] 08:23:00 Test Item Value Reference Range Interpretation Comments CREATINE KINASE (CK) 28 Units/L 39-308 L (test code = CK) TROPONIN-I (test code <0.02 NG/ML 0.00-0.06 N REFERE NCE RANGE = TROPI) TROPONIN I HEAL THY INDIVIDUALS: < 0.06 ng/mL R/O ISCHE AKHIL: 0.07 - 0.60 ng/ mL CUT-OFF RANGE F OR AMI: 0.60 - 1. 5 ng/mL - XR CHEST 1 [id number] 06:38:00 FAX: Sky Valente MD [phone] [place]: St: ADM FAX: Jimmie Dobbs [phone] Name: SUDHEER JUAREZ [facility] : 1970 Age/S: 47/M [address] [facility] Unit #: [id number] Loc: E.438 [place], [place] Phys: [place] [address] Acct: [id number] Dis Date: Status: ADM IN PHONE #: [phone] Exam Date: 08/12/2018 06 FAX #: [phone] Reason: CHEST PAIN EXAMS: CPT CODE: [id number] XR CHEST 1 V 85074 Location: U19. CHEST, FRONTAL VIEW HISTORY: CHEST PAIN COMPARISON: Chest x-ray 05/17/18. FINDINGS: The lungs are clear without consolidation. No pleural effusion or pneumothorax. The heart size is normal. The bones are unremarkable. IMPRESSION: No evidence of acute cardiopulmonary disease. [id number] Reported and signed by: Augusta Remy M.D. CC: Sky Bartholomew MD; [place] BE Technologist: [facility]EE [facility] Date/Time/By: 08/12/2018 (0638) : By: [email or web address] PAGE 1 Signed Report FAX: Sky Valente MD [phone] [place]: St: ADM FAX: [place]ango Dobbs [phone] Name: SUDHEER JUAREZ [facility] : 1970 Age/S: 47/M [address] [facility] Unit #: [id number] Loc: [address] Phys: [place] [address] Acct: [id number] Dis Date: Status: ADM IN PHONE #: [phone] Exam Date: 08/12/2018635 FAX #: [phone] Reason: CHEST PAIN EXAMS: CPT CODE: [id number] XR CHEST 1 V 91883 <Continued> Orig Print D/T: S: 08/12/2018 (0641) PAGE 2 Signed [id number] 05:48:00 Test Item Value Reference Range Interpretation Comments GLUBED (test code = GLUBED) 155 mg/dL 70-110 H [id number] 04:15:00 Test Item Value Reference Range Interpretation Comments GLUBED (test code = GLUBED) 195 mg/dL 70-110 H [id number] 16:15:00 Test Item Value Reference Range Interpretation Comments GLUBED (test code = GLUBED) 210 mg/dL 70-110 H URINALYSIS [id number] 13:21:00 Test Item Value Reference Range Interpretation Comments UA COLOR (test code = COLU) YELLOW UA APPEARANCE (test code = CLEAR APPU) UA GLUCOSE DIPSTICK (test 1000 mg/dl mg/dl NORMAL A code = DGLUU) UA BILIRUBIN DIPSTICK (test NEGATIVE mg/dL NEGATIVE code = BILU) UA KETONE DIPSTICK (test NEGATIVE mg/dl NEGATIVE code = KETU) UA SPECIFIC GRAVITY (test 1.015 1.000-1.030 code = SGU) UA BLOOD DIPSTICK (test NEGATIVE Emilio/micL NEGATIVE code = DAVID) UA PH DIPSTICK (test code = 6.0 5.0-9.0 AYAKA) UA PROTEIN DIPSTICK (test 15 mg/dl mg/dl NEGATIVE A code = PROU) UA UROBILINIOGEN DIPSTICK 4.0 mg/dl mg/dl NORMAL A (test code = URO) UA NITRITE DIPSTICK (test NEGATIVE NEGATIVE code = SHELIA) UA LEUKOCYTE ESTERASE NEGATIVE Lakhwinder/micL NEGATIVE DIPSTICK (test code = LEUU) UA WBC (test code = WBCU) 0-2 WBC/HPF NONE UA RBC (test code = RBCU) 0-2 RBC/HPF 0-3 UA EPITHELIAL CELLS (test 0-3 EPI/HPF 0-3 code = EPIU) UA BACTERIA (test code = FEW NONE BACU) UA MUCUS (test code = MUCU) TRACE DRUGS OF ABUSE SCREEN [id number] 13:20:00 Test Item Value Reference Interpretation Comments Range URN COCAINE (test NEGATIVE NEGATIVE Cocaine cu t-off code = COCAURN) concentratio n: 300 ng/mL URN CANNABINOIDS NEGATIVE NEGATIVE Cannabinoid s cut-off (test code = concentration: 50 ng/mL CANNABURN) URN AMPHETAMINE NEGATIVE NEGATIVE Amphetamine cut-off (test code = concentration: 1000 ng/mL AMPHETURN) URN BARBITURATE NEGATIVE NEGATIVE Barbiturate cut-off (test code = concentration: 200 ng/mL BARBITURN) URN BENZODIAZEPINE NEGATIVE NEGATIVE Benzodiaz epine cut-off (test code = concentration: 200 ng/mL BENZOURN) URN OPIATES (test POSITIVE NEGATIVE A UNCONFIRME D INITIAL code = OPIATURN) SCREENING O NLY; SUGGEST ADDITIONALCONFI RMATORY TESTING.Opiates cut-off concentration: 200 ng/mL URN PHENCYCLIDINE NEGATIVE NEGATIVE Phencyclid ine(PCP) cut-off (PCP) (test code = concentra tion: 25 ng/ml PHENCURN) URN METHADONE (test NEGATIVE NEGATIVE Methadon e cut-off code = METHAURN) concentrati on: 300 ng/mL URINALYSIS [id number] 13:17:00 Test Item Value Reference Range Interpretation Comments UA COLOR (test code = COLU) YELLOW UA APPEARANCE (test code = CLEAR APPU) UA GLUCOSE DIPSTICK (test 1000 mg/dl mg/dl NORMAL A code = DGLUU) UA BILIRUBIN DIPSTICK (test NEGATIVE mg/dL NEGATIVE code = BILU) UA KETONE DIPSTICK (test NEGATIVE mg/dl NEGATIVE code = KETU) UA SPECIFIC GRAVITY (test 1.015 1.000-1.030 code = SGU) UA BLOOD DIPSTICK (test NEGATIVE Emilio/micL NEGATIVE code = DAVID) UA PH DIPSTICK (test code = 6.0 5.0-9.0 AYAKA) UA PROTEIN DIPSTICK (test 15 mg/dl mg/dl NEGATIVE A code = PROU) UA UROBILINIOGEN DIPSTICK 4.0 mg/dl mg/dl NORMAL A (test code = URO) UA NITRITE DIPSTICK (test NEGATIVE NEGATIVE code = SHELIA) UA LEUKOCYTE ESTERASE NEGATIVE Lakhwinder/micL NEGATIVE DIPSTICK (test code = LEUU) UA WBC (test code = WBCU) WBC/HPF NONE UA RBC (test code = RBCU) RBC/HPF 0-3 UA EPITHELIAL CELLS (test EPI/HPF 0-3 code = EPIU) UA BACTERIA (test code = NONE BACU) [id number] 11:54:00 Test Item Value Reference Range Interpretation Comments HGBA1C% (test code = HGBA1C%) 5.7 %A1C 4.8-6.0 N ESTIMATED AVERAGE GLUCOSE (test 117 MG/DL code = EAG) [id number] 11:19:00 Test Item Value Reference Range Interpretation Comments GLUBED (test code = GLUBED) 225 mg/dL 70-110 H COMPREHENSIVE METABOLIC [id number] 07:52:00 Test Item Value Reference Range Interpretation Comments SODIUM (test code = NA) 139 mmol/l 134.0-147.0 N POTASSIUM (test code = K) 3.6 mmol/L 3.6-5.2 N CHLORIDE (test code = CL) 105 mmol/l 98.0-107.0 N CARBON DIOXIDE (test code = CO2) 24.4 mmol/l 21.0-33.0 N ANION GAP (test code = GAP) 13.2 0-20 N GLUCOSE (test code = GLU) 187 mg/dl 70.0-110.0 H BLOOD UREA NITROGEN (test code = 13 mg/dl 7.0-18.0 N BUN) CREATININE (test code = CREAT) 0.89 mg/dL 0.60-1.30 N GFR NON BLACK (test code = 97 mL/min 95-105 N GFRNONBLACK) GFR BLACK (test code = GFRBLACK) 118 mL/min 115-127 N TOTAL PROTEIN (test code = PROT) 7.3 gm/dL 6.4-8.2 N ALBUMIN (test code = ALB) 3.3 gm/dl 3.2-4.7 N CALCIUM (test code = CA) 9.5 mg/dl 8.0-10.5 N BILIRUBIN TOTAL (test code = 0.7 mg/dl 0.0-1.0 N BILT) SGOT/AST (test code = AST) 23 Units/L 15.0-37.0 N SGPT/ALT (test code = ALT) 24 Units/L 12.0-78.0 N ALKALINE PHOSPHATASE TOTAL (test 83 Units/L 50.0-136.0 N code = ALKP) Comments to Senior Product Development Scientist: Patient is currently in the ED waiting on a bedLIPID PROFILE (CORONARY RISK)2018-08-11 07:52:00 Test Item Value Reference Range Interpretation Comments TRIGLYCERIDES (test code = TRIG) 63 mg/dl 40.0-150.0 N CHOLESTEROL (test code = CHOL) 156 mg/dl 0.0-200.0 N CHOLESTEROL/HDL RATIO (test code = 5.2 RATIO CHOLHDL) HDL CHOLESTEROL (test code = HDL) 30 mg/dl 30.0-60.0 N LIPOPROTEIN LDL (test code = LDL) 128 mg/dl 70-130 N Comments to Senior Product Development Scientist: Patient is currently in the ED waiting on a [id number] 07:52:00 Test Item Value Reference Range Interpretation Comments MAGNESIUM (test code = MAG) 1.9 mg/dl 1.8-2.4 N Comments to Senior Product Development Scientist: Patient is currently in the ED waiting on a bedCBC W/AUTO [id number] 07:31:00 Test Item Value Reference Range Interpretation Comments WHITE BLOOD CELL (test code = 13.0 K/mm3 4.5-11.0 H WBC) RED BLOOD CELL (test code = 5.48 M/mm3 4.40-5.90 N RBC) HEMOGLOBIN (test code = HGB) 15.8 gm/dL 13.0-17.0 N HEMATOCRIT (test code = HCT) 47.6 % 36.0-48.0 N MEAN CELL VOLUME (test code = 86.9 UM3 80.0-94.0 N MCV) MEAN CELL HGB (test code = MCH) 28.8 UUG 25.5-32.5 N MEAN CELL HGB CONCETRATION 33.2 gm/dL 29.0-35.5 N (test code = MCHC) RED CELL DISTRIBUTION WIDTH 13.8 % 11.5-15.0 N (test code = RDW) RED CELL DISTRIBUTION WIDTH SD 43.9 fL 34.8-50.2 N (test code = RDW-SD) PLATELET COUNT (test code = 200 K/mm3 150-400 N PLT) MEAN PLATELET VOLUME (test code 13.5 fl 7.4-10.4 H = MPV) NEUTROPHIL % (test code = NT%) 92.4 % 49.0-76.0 H IMMATURE GRANULOCYTE % (test 0.7 % 0.0-0.4 H code = IG%) LYMPHOCYTE % (test code = LY%) 5.9 % 23.0-38.0 L MONOCYTE % (test code = MO%) 0.8 % 1.0-10.0 L EOSINOPHIL % (test code = EO%) 0.0 % 1.0-5.0 L BASOPHIL % (test code = BA%) 0.2 % 0.0-1.0 N NEUTROPHIL # (test code = NT#) 12.0 K/mm3 2.4-6.3 H IMMATURE GRANULOCYTE # (test 0.09 x10 3/uL 0.00-0.07 H code = IG#) LYMPHOCYTE # (test code = LY#) 0.8 K/mm3 1.2-4.0 L MONOCYTE # (test code = MO#) 0.1 K/mm3 0.0-0.6 N EOSINOPHIL # (test code = EO#) 0.0 K/MM3 0.0-0.7 N BASOPHIL # (test code = BA#) 0.0 K/mm3 0.0-0.2 N Comments to Senior Product Development Scientist: Patient is currently in the ED waiting on a [id number] 05:55:00 Test Item Value Reference Range Interpretation Comments GLUBED (test code = GLUBED) 215 mg/dL 70-110 H [id number] 00:35:00 Test Item Value Reference Range Interpretation Comments GLUBED (test code = GLUBED) 260 mg/dL 70-110 H COMPREHENSIVE METABOLIC [id number] 18:48:00 Test Item Value Reference Range Interpretation Comments SODIUM (test code = NA) 140 mmol/l 134.0-147.0 N POTASSIUM (test code = K) 3.4 mmol/L 3.6-5.2 L CHLORIDE (test code = CL) 105 mmol/l 98.0-107.0 N CARBON DIOXIDE (test code = CO2) 25.3 mmol/l 21.0-33.0 N ANION GAP (test code = GAP) 13.1 0-20 N GLUCOSE (test code = GLU) 120 mg/dl 70.0-110.0 H BLOOD UREA NITROGEN (test code = 13 mg/dl 7.0-18.0 N BUN) CREATININE (test code = CREAT) 0.87 mg/dL 0.60-1.30 N GFR NON BLACK (test code = 100 mL/min 95-105 N GFRNONBLACK) GFR BLACK (test code = GFRBLACK) 121 mL/min 115-127 N TOTAL PROTEIN (test code = PROT) 7.5 GM/DL 6.0-8.1 N ALBUMIN (test code = ALB) 3.5 gm/dL 3.2-4.7 N CALCIUM (test code = CA) 9.1 mg/dl 8.0-10.5 N BILIRUBIN TOTAL (test code = 0.7 mg/dl 0.0-1.0 N BILT) SGOT/AST (test code = AST) 32 Units/L 15.0-37.0 N SGPT/ALT (test code = ALT) 28 Units/L 12.0-78.0 N ALKALINE PHOSPHATASE TOTAL (test 88 Units/L 50.0-136.0 N code = ALKP) COMPREHENSIVE METABOLIC [id number] 18:41:00 Test Item Value Reference Range Interpretation Comments SODIUM (test code = NA) 140 mmol/l 134.0-147.0 N POTASSIUM (test code = K) 3.4 mmol/L 3.6-5.2 L CHLORIDE (test code = CL) 105 mmol/l 98.0-107.0 N CARBON DIOXIDE (test code = CO2) 25.3 mmol/l 21.0-33.0 N ANION GAP (test code = GAP) 13.1 0-20 N GLUCOSE (test code = GLU) mg/dl 70.0-110.0 BLOOD UREA NITROGEN (test code = mg/dl 7.0-18.0 BUN) CREATININE (test code = CREAT) mg/dL 0.60-1.30 GFR NON BLACK (test code = mL/min 95-105 GFRNONBLACK) GFR BLACK (test code = GFRBLACK) mL/min 115-127 TOTAL PROTEIN (test code = PROT) gm/dL 6.4-8.2 ALBUMIN (test code = ALB) gm/dl 3.2-4.7 CALCIUM (test code = CA) mg/dl 8.0-10.5 BILIRUBIN TOTAL (test code = mg/dl 0.0-1.0 BILT) SGOT/AST (test code = AST) Units/L 15.0-37.0 SGPT/ALT (test code = ALT) Units/L 12.0-78.0 ALKALINE PHOSPHATASE TOTAL (test Units/L 50.0-136.0 code = ALKP) PROTHROMBIN [id number] 18:36:00 Test Item Value Reference Range Interpretation Comments PROTHROMBIN TIME 12.6 SECONDS 9.9-12.8 N PATIENT (test code = PTP) INTERNATIONAL NORMAL 1.1 0.89-1.14 N THE INR IS TO BE USED RATIO (test code = ONLY FOR MONITORING INR) ORAL ANTICOAGULANTTH ERAPY. THE FOLLOWING A RE SUGGESTED RANGE S FROM [facility] LE[facility] OF CHEST PHYS[facility]:REJI CATION INR VALUEPROPHYLAXI S OF VENOUS THROMBOS IS (ORTHOPEDIC RENNY TA) 2.0 - 3.0PROP HYLAXIS OF VENOUS THROM BOSIS (OTHER THAN HIG H-RISK SURGERY) 2.0 - 3.0TRE ATMENT OF DEEP VEIN THROMBOSIS OR PULMONARY EMBOL ISM 2.0 - 3.0PREV ENTION OF SYSTEMIC EMB OLISM TISSUE HEART VA LVES 2.0 - 3.0 AC ALATNA MYOCARDIAL INFA RCTION (TO PREVENT SYSTEMIC EMBOLI SM) 2.0 - 3.0 ACUTE MYOCARDIA L INFARCTION (TO PREVENT RECURRE NT INFARCT) 2.5 - 3.0 VALV ULAR HEART DISEASE 2.0 - 3.0 ATRIAL FIBRILATION 2.0 - 3.0BILEAFLET MECHANICAL VALV E IN AORTIC POSITION 2.0 - 3.0MECHAN ICAL PROSTHETIC VALV ES (HIGH RISK) 2.5 - 3.5PRESEN CE OF LUPUS ANTICOAGU LANT OR ANTIPHOSPHOLIP ID ANTIBODIES 2.5 - 3 .5 CBC W/AUTO [id number] 18:31:00 Test Item Value Reference Range Interpretation Comments WHITE BLOOD CELL (test code = 11.9 K/mm3 4.5-11.0 H WBC) RED BLOOD CELL (test code = 5.51 M/mm3 4.40-5.90 N RBC) HEMOGLOBIN (test code = HGB) 15.9 gm/dL 13.0-17.0 N HEMATOCRIT (test code = HCT) 48.5 % 36.0-48.0 H MEAN CELL VOLUME (test code = 88.0 UM3 80.0-94.0 N MCV) MEAN CELL HGB (test code = MCH) 28.9 UUG 25.5-32.5 N MEAN CELL HGB CONCETRATION 32.8 gm/dL 29.0-35.5 N (test code = MCHC) RED CELL DISTRIBUTION WIDTH 14.0 % 11.5-15.0 N (test code = RDW) RED CELL DISTRIBUTION WIDTH SD 44.5 fL 34.8-50.2 N (test code = RDW-SD) PLATELET COUNT (test code = 161 K/mm3 150-400 N PLT) MEAN PLATELET VOLUME (test code 12.8 fl 7.4-10.4 H = MPV) NEUTROPHIL % (test code = NT%) 76.5 % 49.0-76.0 H IMMATURE GRANULOCYTE % (test 0.7 % 0.0-0.4 H code = IG%) LYMPHOCYTE % (test code = LY%) 14.9 % 23.0-38.0 L MONOCYTE % (test code = MO%) 4.5 % 1.0-10.0 N EOSINOPHIL % (test code = EO%) 2.9 % 1.0-5.0 N BASOPHIL % (test code = BA%) 0.5 % 0.0-1.0 N NEUTROPHIL # (test code = NT#) 9.1 K/mm3 2.4-6.3 H IMMATURE GRANULOCYTE # (test 0.08 x10 3/uL 0.00-0.07 H code = IG#) LYMPHOCYTE # (test code = LY#) 1.8 K/mm3 1.2-4.0 N MONOCYTE # (test code = MO#) 0.5 K/mm3 0.0-0.6 N EOSINOPHIL # (test code = EO#) 0.4 K/MM3 0.0-0.7 N BASOPHIL # (test code = BA#) 0.1 K/mm3 0.0-0.2 N - CT L-SPINE W/O [id number] 18:03:00 FAX: Sagar Troncoso MD [phone] [place]: St: REG Name: JUAREZSUDHEER SIMEON [facility] : 1970 Age/S: 47/M [address] [facility] Unit: [id number] [place]: [place]: [place] [id number] Acct: [id number] Dis Date: Status: REG ER PHONE #: [phone] Exam Date: 08/10/2018 1754 FAX #: [phone] Reason: acute injury, Hx L3-4 fusion EXAMS: CPT CODE: [id number] CT L-SPINE W/O CONTRAST 13119 EXAM: CT LUMBAR SPINE WITHOUT CONTRAST INDICATION: Back injury COMPARISON: February 28, 2003 TECHNIQUE: Axial CT imaging of the lumbar spine was obtained without administration of intravenous contrast. Sagittal and coronal reconstructions were submitted for review. IV contrast: None DLP: 887.87 mGy-cm FINDINGS: There are 5 nonrib-bearing lumbar vertebra. There are postsurgical changes at L3-L4 with osseous fusion of the vertebral bodies and posterior elements. There are neurostimulator leads within the lower lumbar and lower thoracic spine. The vertebral bodies are normal in height, alignment and density. The facet joints and spinous processes are in normal alignment. There is diffuse facet joint arthropathy. There are erosive changes at the facet joints at L4-L5 bilaterally which has progressed since the prior examination. There is loss of the intervertebral disc height throughout the lumbar spine. The p araspinal soft tissues are normal. Imaged portion of the abdomen is unremarkable. Individual levels: L1-2: No spinal canal or neuroforaminal stenosis. L2-3: Nospinal canal or neuroforaminal stenosis. L3-4: Postsurgical changes. No spinal canalor neuroforaminal stenosis. L4-5: No spinal canal stenosis. Facet joint hypertr ophy with moderate neuroforaminal stenosis bilaterally. L5- S1: No spinal canal stenosis. Facet joint hypertrophy with moderate neuroforaminal stenosis bilaterally. IMPRESSION: No acute fracture is identified. Erosive changes at the facet joints at L4-L5 bilaterally which has progressed since the prior examination may be secondary to synovitis. PAGE 1 Signed Report (CONTINUED) FAX: Sagar Troncoso MD [phone] [place]: St: REG Name: SUDHEER JUAREZ [facility] : 1970 Age/S: 47/M [address] Unit: [id number] Loc: [place], [place] Phys: Sagar Peters [id number] Acct: [id number] Dis Date: Status: REG ER PHONE #: [phone] Exam Date: 08/10/2018 1754FAX #: [phone] Reason: acute injury, Hx L3-4 fusion EXAMS: CPT CODE: [id number] CT L-SPINE W/O CONTRAST 29361 <Continued> Diffuse discogenic disease and facet joint arthropathy throughout the lumbar spine. Postsurgical changes at L3-L4. Moderate neuroforaminal stenosis at L4-L5 and L5-S1 bilaterally. LOCATION: B2This CT exam was performed according to our departmental dose optimization program, which includes automated exposure control, adjustment of the mA and or kV according to patient size and/or use of iterative reconstruction technique. at 1803 Reported and signed by: Leslee Lobo M.D. CC: Sagar Peters MD Technologist: MEHUL AWAN [facility] Dt/Tm: 08/10/2018 (1802) 16 Orig Print D/T: S: 08/10/2018 (5266 PAGE 2 Signed Report- CT HEAD/BRAIN W/O [id number] 17:56:00 FAX: Sagar Troncoso MD [phone] [place]: St: REG Name: SUDHEER JUAREZ [facility] : 1970 Age/S: 47/M [address] Unit: [id number] Loc: [place], [place]: [place] [id number] Acct: [id number] Dis Date: Status: REG ER PHONE #: [phone] Exam Date: 08/10/2018 1754 FAX #: [phone] Reason: acute injury, +LOC EXAMS: CPT CODE: [id number] CT HEAD/BRAIN W/O CONT 61955 CT HEAD WITHOUT CONTRAST. HISTORY: acute injury, +LOC COMPARISON: CT head 01/06/18. TECHNIQUE: Axial CT images of the head were obtained with coronal and/or sagittal reformatted views. Automated exposure control, iterative reconstruction technique, and/or adjustment of mA and/or kV according to patient's size was utilized for radiation dose reduction. IV CONTRAST: None. Location: U19. FINDINGS: No intracranial abnormalities such as hemorrhage, mass, masseffect, hydrocephalus, midline shift, extra-axial fluid collection or secondary signs ofan acute infarct are noted. The calvarium and skull base are intact. The visualized paranasal sinus and mastoid air cells are clear. IMPRESSION: Noevidence of acute intracranial abnormality. at 1756 Reported and signed by: Augusta Remy M.D. CC: Sagar Peters MD Technologist: MEHUL AWAN [facility] Dt/Tm: 08/10/2018 (1755) [email or web address] Orig Print D/T: S: 08/10/2018 (6394 PAGE 1 Signed Report- XR T-SPINE 3 [id number] 17:33:00 FAX: Sagar Troncoso MD [phone] [place]: EM St: REG Name: SUDHEER JUAREZ [facility] : 1970 Age/S: 47/M [address] Unit#: [id number] Loc: [place], [place]: [place] [address] Acct: [id number] Dis Date: Status: REG ER PHONE #: [phone] Exam Date: 08/10/2018 1729 FAX #: [phone] Reason: acute injury EXAMS: CPT CODE: [id number] XR T-SPINE 3 VIEWS 84169 Site ID: [id number] HISTORY: Acute injury, back pain IMPRESSION: Normal thoracic kyphosis, no acute fracture or subluxation. No significant spondylosis. Visualized ribs are intact. Spinal epidural leads terminate at the T8-T9 level. at 1739 Reported and signed by: Memo Greer M.D. CC: Sagar Peters MD Technologist: HAI Huffman Date/Time/By: 08/10/2018 (7710) : By: [email or web address] PAGE 1Signed Report FAX: Sagar Troncoso MD [phone] [place]: St: REG -- Name: SUDHEER JUAREZ [facility] : 1970 Age/S: 47/M [address] [facility] #: [id number] Loc: [place], [place]: [place] [address] Acct: [id number] Dis Date: Status: REG ER PHONE #: [phone] Exam Date: 08/10/2018 1729 FAX #: [phone] Reason: acute injury EXAMS: CPT CODE: [id number] XR T-SPINE 3 VIEWS 13492 <Continued> OrigPrint D/T: S: 08/10/2018 (6494) PAGE 2 Signed Report[U] XRAY SPINE LUMBOSACRAL MIN 4 VWS [id number] 13:57:00 Test Item Value Reference Range Interpretation Comments XR SPINE LUMBOSACRAL EXAM: XR SPINE MIN 4 VWS (test code = LUMBOSACRAL MIN 4 VWS 86678-2) DATE: 05/30/2017 at 1400 hours. INDICATION: Lower back pain. COMPARISON: None available. TECHNIQUE: AP, lateral, coned lateral, LPO and RPO radiographs of the lumbar spine. FINDINGS:5 nonrib bearing, lumbar-type vertebral bodies are present.A presumed spinal cord stimulator battery pack project over the left hip. Its distal leads are excluded from the [id number]-qe-hwkr.Moderate facet arthropathy is present throughout the mid to lower lumbar spine.There appears to be an intervening disc spacer at the L3-L4 level. IMPRESSION:1. No acute, radiographic abnormality of the lower lumbar spine.2. Advanced facet arthropathy throughout the mid to lower lumbar spine.3. Probable intervening disc spacer at the L3-L4 level. 05/30/2017 2:[address] [employer] [facility]
--- NOTE | 2020-06-14 16:18 | ER ---
Nurse's Notes [facility] Name: Matti Juarez Age: 49 yrs Sex: Male : 1970 Arrival Date: 06/14/2020 Time: 14:23 Bed Waiting Private MD: Diagnosis: Periapical abscess without sinus Presentation: 06/14 16:06 Chief complaint: Patient states: bad infection in left lower tooth, has a lot of pain , iw started 3 days ago, worse last night. Coronavirus screen: At this time, the client does not indicate any symptoms associated with coronavirus-19. Ebola Screen: Patient negative for fever greater than or equal to 101.5 degrees Fahrenheit, and additional compatible Ebola Virus Disease symptoms Patient denies exposure to infectious person. Patient denies travel to an Ebola-affected area in the 21 days before illness onset. No symptoms or risks identified at this time. Initial Sepsis Screen: Does the patient meet any 2 criteria? No. Patient's initial sepsis screen is negative. Does the patient have a suspected source of infection? No. Patient's initial sepsis screen is negative. Risk Assessment: Do you want to hurt yourself or someone else? Patient reports no desire to harm self or others. Onset of symptoms was June 11, 2020. 16:06 Method Of Arrival: Ambulatory iw 16:06 Acuity: JELENA 4 iw Historical: - Allergies: 16:08 Anesthesia; iw 16:08 Aspirin; iw 16:08 atorvastatin; iw 16:08 Iodinated Contrast Media - IV Dye (cardiac arrest); iw 16:08 Requip; iw 16:08 SHELLFISH; iw - PMHx: 16:08 cardiac arrest; Diabetes - NIDDM; heart catheterization; Hypertension; iw - PSHx: 16:08 spinal fusion; iw - Social history:: Smoking status: . Screenin:11 Abuse screen: Denies threats or abuse. Denies injuries from another. Nutritional iw screening: No deficits noted. Tuberculosis screening: No symptoms or risk factors identified. Fall Risk None identified. Assessment: 16:09 General: Appears in no apparent distress. comfortable, Behavior is calm, cooperative. iw Pain: Complains of pain in left jaw. Neuro: Level of Consciousness is awake, alert, obeys commands, Oriented to person, place, time, situation. Cardiovascular: Patient's skin is warm and dry. Respiratory: Respiratory effort is even, unlabored, Respiratory pattern is regular. EENT: Derm: Skin is intact, is healthy with good turgor. Musculoskeletal: Range of motion: intact in all extremities. Vital Signs: 16:08 BP 198 / 113; Pulse 87; Resp 16; Pulse Ox 99% on R/A; iw ED Course: 14:23 Patient arrived in ED. ds1 16:06 Milady Finn, RN is Primary Nurse. iw 16:07 Triage completed. iw 16:08 Arm band placed on. iw 16:10 Polly Gracia FNP-C is [facility]. kb 16:10 Mariola Goodman MD is Attending Physician. kb 16:11 No provider procedures requiring assistance completed. Patient did not have IV access iw during this emergency room visit. Administered Medications: 16:42 Drug: [place] 10 mg-325 mg 1 tabs Route: PO; iw 16:42 Drug: Augmentin 875 mg Route: PO; iw Outcome: 16:17 Discharge ordered by MD. kb 16:42 Discharged to home ambulatory, with family. iw 16:42 Condition: good 16:42 Discharge instructions given to patient, Instructed on discharge instructions, follow up and referral plans. medication usage, Demonstrated understanding of instructions, follow-up care, medications, Prescriptions given X 1. 16:42 Patient left the ED. iw Signatures: Polly Gracia FNP-C FNP-Sylvia Montalvo ds1 Milady Finn RN RN iw
--- NOTE | 2020-06-14 16:18 | EDPHYS ---
Physician Documentation [facility] Name: Matti Juarez Age: 49 yrs Sex: Male : 1970 Arrival Date: 06/14/2020 Time: 14:23 Bed Waiting Private MD: ED Physician Mariola Goodman HPI: 06/14 16:17 This 49 yrs old Male presents to ER via Ambulatory with complaints of Dental kb Pain, Ear Pain. 16:17 The patient presents with pain, redness, swelling. The problem is located in the lower kb left second molar (#18). Onset: The symptoms/episode began/occurred 3 day(s) ago. Duration: The symptoms are continuous. Modifying factors: The symptoms are alleviated by nothing, the symptoms are aggravated by nothing. Associated signs and symptoms: Pertinent positives: pain, redness in area, swelling. Severity of symptoms: At their worst the symptoms were moderate, in the emergency department the symptoms are unchanged. The patient has experienced similar episodes in the past. The patient has not recently seen a physician. Pt reports tooth pain with gum swelling and redness for 3 days. States he has been trying to make an appt with dentist, but is having trouble finding a ride to get there because he is in [place]. States his son is supposed to get him there within the week. Historical: - Allergies: 16:08 Anesthesia; iw 16:08 Aspirin; iw 16:08 atorvastatin; iw 16:08 Iodinated Contrast Media - IV Dye (cardiac arrest); iw 16:08 Requip; iw 16:08 SHELLFISH; iw - PMHx: 16:08 cardiac arrest; Diabetes - NIDDM; heart catheterization; Hypertension; iw - PSHx: 16:08 spinal fusion; iw - Social history:: Smoking status: . ROS: 16:12 Constitutional: Negative for fever, chills, and weight loss, Cardiovascular: Negative kb for chest pain, palpitations, and edema, Respiratory: Negative for shortness of breath, cough, wheezing, and pleuritic chest pain, Abdomen/GI: Negative for abdominal pain, nausea, vomiting, diarrhea, and constipation, MS/Extremity: Negative for injury and deformity, Skin: Negative for injury, rash, and discoloration, Neuro: Negative for headache, weakness, numbness, tingling, and seizure. 16:12 ENT: Positive for dental pain, ear pain. Exam: 16:12 Constitutional: This is a well developed, well nourished patient who is awake, alert, kb and in no acute distress. Head/Face: Normocephalic, atraumatic. Chest/axilla: Normal chest wall appearance and motion. Nontender with no deformity. No lesions are appreciated. Cardiovascular: Regular rate and rhythm with a normal S1 and S2. No gallops, murmurs, or rubs. Normal PMI, no JVD. No pulse deficits. Respiratory: Lungs have equal breath sounds bilaterally, clear to auscultation and percussion. No rales, rhonchi or wheezes noted. No increased work of breathing, no retractions or nasal flaring. Abdomen/GI: Soft, non-tender, with normal bowel sounds. No distension or tympany. No guarding or rebound. No evidence of tenderness throughout. Skin: Warm, dry with normal turgor. Normal color with no rashes, no lesions, and no evidence of cellulitis. MS/ Extremity: Pulses equal, no cyanosis. Neurovascular intact. Full, normal range of motion. Neuro: Awake and alert, GCS 15, oriented to person, place, time, and situation. Cranial nerves II-XII grossly intact. Motor strength 5/5 in all extremities. Sensory grossly intact. Cerebellar exam normal. Normal gait. 16:12 ENT: External ear(s): are unremarkable, Ear canal(s): are normal, TM's: are normal, Dental exam: abscess, that is mild, specifically in the lower left second molar (#18), gum swelling, that is mild, that is moderate, specifically in the lower left second molar (#18), pain, that is moderate, specifically in the lower left second molar (#18). Vital Signs: 16:08 BP 198 / 113; Pulse 87; Resp 16; Pulse Ox 99% on R/A; iw MDM: 16:10 Patient medically screened. kb 16:11 Data reviewed: vital signs, nurses notes. Data interpreted: Pulse oximetry: on room air kb is 99 %. Interpretation: normal. Counseling: I had a detailed discussion with the patient and/or guardian regarding: the historical points, exam findings, and any diagnostic results supporting the discharge/admit diagnosis, the need for outpatient follow up, a dentist, to return to the emergency department if symptoms worsen or persist or if there are any questions or concerns that arise at home. ED course: Pt reports BP is normal for him. States he is working with his PCP to get it down, but nothing has worked yet. Pt asymptomatic of BP. Administered Medications: 16:42 Drug: [place] 10 mg-325 mg 1 tabs Route: PO; iw 16:42 Drug: Augmentin 875 mg Route: PO; Disposition: 18:23 Co-signature as Attending Physician, Mariola Goodman MD. ma2 Disposition: 06/14/20 16:17 Discharged to Home. Impression: Periapical abscess without sinus. - Condition is Stable. - Discharge Instructions: Dental Pain, Bozc-wt-Awjt, Dental Abscess, Wmiv-wd-Hwfo. - Prescriptions for Augmentin 875- 125 mg Oral Tablet - take 1 tablet by ORAL route every 12 hours for 10 days; 20 tablet. - Medication Reconciliation Form, Thank You Letter, Antibiotic Education, Prescription Opioid Use form. - Follow up: Emergency Department; When: As needed; Reason: Worsening of condition. Follow up: Private Physician; When: 2 - 3 days; Reason: Recheck today's complaints, Continuance of care, Re-evaluation by your physician. Signatures: Polly Gracia, RAFITA BAIRD-Milady Jones RN RN iw Alzahri, Mohammad, MD MD ma2 Corrections: (The following items were deleted from the chart) 16:42 16:17 06/14/2020 16:17 Discharged to Home. Impression: Periapical abscess without iw sinus. Condition is Stable. Forms are Medication Reconciliation Form, Thank You Letter, Antibiotic Education, Prescription Opioid Use. Follow up: Emergency Department; When: As needed; Reason: Worsening of condition. Follow up: Private Physician; When: 2 - 3 days; Reason: Recheck today's complaints, Continuance of care, Re-evaluation by your physician. kb
[2020-06-14 16:53] VITALS: BP 198/113; O2SAT 99
[2020-06-14] MEDS ORDERED: HYDROCODONE/APAP 10/325 TAB ONE (16:55)
[2020-06-14] MEDS ORDERED: AMOX/K CLAV 875 MG TAB ONE (16:55)
== END 2020-06-14 16:42 | disposition home or self-care (01) ==
LOC: ER 14:20
DX: K04.7 Periapical abscess without sinus (principal); E11.9 Type 2 diabetes mellitus without complications; I10 Essential (primary) hypertension
CPT/HCPCS: 99283

== ENCOUNTER 2020-10-21 22:01 | Emergency (ER) | payer OTHER ==
[2020-10-22] MEDS ORDERED: LIDOCAINE 1% MPF 5 ML VIAL ONE (00:14)
[2020-10-22] MEDS ORDERED: BUPIVACAINE 0.5% PF 10 ML VIAL ONE (00:14)
--- NOTE | 2020-10-22 00:18 | EDPHYS ---
Physician Documentation [facility] Name: Matti Juarez Age: 50 yrs Sex: Male : 1970 Arrival Date: 10/21/2020 Time: 22:06 Bed 12 Private MD: ED Physician Otto Ryan HPI: 10/21 23:50 This 50 yrs old Male presents to ER via Ambulatory with complaints of cp Toothache, Jaw Pain. 23:50 The patient presents with pain. The problem is located in the left lower jaw back cp molar. Onset: The symptoms/episode began/occurred 1 month(s) ago, and became worse today. Duration: The symptoms are intermittent. Associated signs and symptoms: Pertinent positives: nausea, Pertinent negatives: fever, inability to eat. Patient reports he has been seen by dentist for this issue but dentist unable to remove tooth due to issue with tools. Patient reports being on multiple courses of antibiotics and most recently finishing course of clindamycin 2 days ago. Pain became intense today causing him to black out. Patient requesting dental block. Historical: - Allergies: 22:33 Anesthesia; em 22:33 Aspirin; em 22:33 atorvastatin; em 22:33 Iodinated Contrast Media - IV Dye (cardiac arrest); em 22:33 Requip; em 22:33 SHELLFISH; em - PMHx: 22:33 cardiac arrest; Diabetes - NIDDM; heart catheterization; Hypertension; em - PSHx: 22:33 spinal fusion; em - Immunization history:: Adult Immunizations up to date. - Social history:: Smoking status: Patient denies any tobacco usage or history of. ROS: 23:55 Constitutional: Negative for body aches, chills, fever, poor PO intake. cp 23:55 Eyes: Negative for injury, pain, redness, and discharge. cp 23:55 ENT: Positive for dental pain, Negative for ear pain, sore throat, difficulty swallowing, difficulty handling secretions. 23:55 Cardiovascular: Negative for chest pain, palpitations. 23:55 Respiratory: Negative for cough, shortness of breath, wheezing. 23:55 Abdomen/GI: Positive for nausea, Negative for abdominal pain. 23:55 Skin: Negative for rash. 23:55 Neuro: Negative for altered mental status, headache, weakness. 23:55 All other systems are negative. Exam: 23:58 Constitutional: The patient appears in no acute distress, alert, awake, non-toxic, well cp developed, well nourished, obese. 23:58 Head/Face: Normocephalic, atraumatic. cp 23:58 Eyes: Periorbital structures: appear normal, Conjunctiva: normal, no exudate, no injection, Sclera: no appreciated abnormality, Lids and lashes: appear normal, bilaterally. 23:58 ENT: External ear(s): are unremarkable, Ear canal(s): are normal, clear, TM's: dullness, bilaterally, Nose: is normal, Mouth: Lips: moist, Oral mucosa: pink and intact, moist, Posterior pharynx: Airway: no evidence of obstruction, patent, Dental exam: abscess, is not appreciated, dental caries, that is moderate, diffusely, gum swelling, not appreciated, missing teeth, diffusely, pain, that is severe, specifically in the lower left third molar (#17), Voice: is normal. 23:58 Neck: External neck: is normal, ROM/movement: is normal, is supple, no meningismus, no nuchal rigidity. 23:58 Chest/axilla: Inspection: normal. 23:58 Cardiovascular: Rate: normal. 23:58 Respiratory: the patient does not display signs of respiratory distress, Respirations: normal. Vital Signs: 22:31 BP 130 / 85; Pulse 94; Resp 18; Temp 97.7(O); Pulse Ox 98% on R/A; Weight 102.06 kg; em Height 5 ft. 6 in. (167.64 cm); Pain 10/10; 10/22 00:35 BP 121 / 81; Pulse 71; Resp 16 S; Pulse Ox 100% on R/A; Pain 0/10; bb 10/21 22:31 Body Mass Index 36.32 (102.06 kg, 167.64 cm) em MDM: 10/21 23:34 Patient medically screened. cp 10/22 00:00 Differential diagnosis: dental caries, dental abscess, pericoronitis. cp 00:17 Data reviewed: vital signs, nurses notes. cp 00:17 Counseling: I had a detailed discussion with the patient and/or guardian regarding: the cp historical points, exam findings, and any diagnostic results supporting the discharge/admit diagnosis, the need for outpatient follow up, for definitive care, a dentist, to return to the emergency department if symptoms worsen or persist or if there are any questions or concerns that arise at home. Response to treatment: the patient's symptoms have mildly improved after treatment, VSS. Dental block of left lower jaw performed after injecting approximately 5 ccs of mixture 1% lidocaine with epi and 0.5% marcaine, and as a result, I will discharge patient. ED course: Review of [place] prescription monitor program website did not return any results. Will discharge to home for continued monitoring with return precautions: swelling of lower jaw, fever, difficulty swallowing. Administered Medications: 00:26 Drug: Marcaine (bupivacaine) (0.5 %) 10 ml {Note: administered by Reyes BE to bb affected area.} Volume: 10 ml; Route: Infiltration; :33 Follow up: Response: Pain is decreased bb 00:27 Drug: Lidocaine-Epinephrine -1%: (1:100,000) 10 ml {Note: administered by Reyes gleason to affected area.} Volume: 20 ml; Route: Infiltration; 00:33 Follow up: Response: Pain is decreased bb 00:33 Drug: Ondansetron 4 mg Route: PO; bb 00:33 Follow up: Response: Medication administered at discharge. bb Disposition: 10/22/20 00:18 Discharged to Home. Impression: Disorder of teeth and supporting structures, unspecified. - Condition is Stable. - Discharge Instructions: Dental Pain. - Prescriptions for penicillin V potassium 500 mg Oral tablet - take 1 tablet by ORAL route 4 times per day for 10 days; 40 tablet. Zofran 4 mg Oral Tablet - take 1 tablet by ORAL route every 12 hours As needed; 20 tablet. Metronidazole 500 mg Oral Tablet - take 1 tablet by ORAL route every 8 hours; 30 tablet. - Medication Reconciliation Form, Thank You Letter, Antibiotic Education, Prescription Opioid Use form. - Follow up: Private Physician; When: 2 - 3 days; Reason: Recheck today's complaints. - Problem is an ongoing problem. - Symptoms have improved. Addendum: 10/23/2020 02:32 Co-signature as Attending Physician, Otto Ryan MD. m Signatures: Piyush De Anda RN Zaira Oswald RN RN bb Page, Corey, PA PA cp Holmes, Maurice, MD MD [id number] Corrections: (The following items were deleted from the chart) 10/22 00:36 00:18 10/22/2020 00:18 Discharged to Home. Impression: Disorder of teeth and supporting bb structures, unspecified. Condition is Stable. Forms are Medication Reconciliation Form, Thank You Letter, Antibiotic Education, Prescription Opioid Use. Follow up: Private Physician; When: 2 - 3 days; Reason: Recheck today's complaints. Problem is an ongoing problem. Symptoms have improved. cp
--- NOTE | 2020-10-22 00:18 | ER ---
Nurse's Notes [facility] Name: Matti Juarez Age: 50 yrs Sex: Male : 1970 Arrival Date: 10/21/2020 Time: 22:06 Bed 12 Private MD: Diagnosis: Disorder of teeth and supporting structures, unspecified Presentation: 10/21 22:31 Chief complaint: Patient states: has been getting treated for infected tooth by dentist em for 1 month, has completed 2 rounds of clindamycin and amoxicillin and pain and swelling has been getting worse, denies fever. Coronavirus screen: Client denies travel out of the [place] in the last 14 days. Ebola Screen: Patient negative for fever greater than or equal to 101.5 degrees Fahrenheit, and additional compatible Ebola Virus Disease symptoms Patient denies exposure to infectious person. Patient denies travel to an Ebola-affected area in the 21 days before illness onset. No symptoms or risks identified at this time. Initial Sepsis Screen: Does the patient meet any 2 criteria? HR > 90 bpm. No. Patient's initial sepsis screen is negative. Does the patient have a suspected source of infection? Yes:. Risk Assessment: Do you want to hurt yourself or someone else? Patient reports no desire to harm self or others. Onset of symptoms was October 21, 2020. 22:31 Method Of Arrival: Ambulatory em 22:31 Acuity: JELENA 3 em Historical: - Allergies: 22:33 Anesthesia; em 22:33 Aspirin; em 22:33 atorvastatin; em 22:33 Iodinated Contrast Media - IV Dye (cardiac arrest); em 22:33 Requip; em 22:33 SHELLFISH; em - PMHx: 22:33 cardiac arrest; Diabetes - NIDDM; heart catheterization; Hypertension; em - PSHx: 22:33 spinal fusion; em - Immunization history:: Adult Immunizations up to date. - Social history:: Smoking status: Patient denies any tobacco usage or history of. Screenin:14 Abuse screen: Denies threats or abuse. Nutritional screening: No deficits noted. bb Tuberculosis screening: No symptoms or risk factors identified. Fall Risk None identified. Assessment: 23:14 General: Appears in no apparent distress. uncomfortable, Behavior is calm, cooperative. bb Pain: Complains of pain in left lower jaw Pain currently is 10 out of 10 on a pain scale. Neuro: Level of Consciousness is awake, alert, obeys commands, Oriented to person, place, time, situation. Cardiovascular: Capillary refill < 3 seconds Patient's skin is warm and dry. Respiratory: Respiratory effort is even, unlabored, Respiratory pattern is regular. GI: No signs and/or symptoms were reported involving the gastrointestinal system. EENT: missing teeth pt states last tooth on left has holes in it and is extremely painful. Derm: Skin is pink, warm \T\ dry. Musculoskeletal: Circulation, motion, and sensation intact. 10/22 00:34 Reassessment: Patient is alert, oriented x 3, equal unlabored respirations, skin bb warm/dry/pink. Patient states feeling better. Patient states symptoms have improved. pt verbalized understanding of and agrees to plan of care discharge instructions given pt ambulated with steady gait to exit accompanied by family. Vital Signs: 10/21 22:31 BP 130 / 85; Pulse 94; Resp 18; Temp 97.7(O); Pulse Ox 98% on R/A; Weight 102.06 kg; em Height 5 ft. 6 in. (167.64 cm); Pain 10/10; 10/22 00:35 BP 121 / 81; Pulse 71; Resp 16 S; Pulse Ox 100% on R/A; Pain 0/10; bb 10/21 22:31 Body Mass Index 36.32 (102.06 kg, 167.64 cm) em ED Course: 10/21 22:06 Patient arrived in ED. bp1 22:33 Triage completed. em 22:34 Arm band placed on. em 23:14 Patient has correct armband on for positive identification. Adult w/ patient. bb 23:16 Reyes Fitzgerald PA is PHCP. cp 23:16 Otto Ryan MD is Attending Physician. cp 10/22 00:35 No provider procedures requiring assistance completed. Patient did not have IV access bb during this emergency room visit. Administered Medications: 00:26 Drug: Marcaine (bupivacaine) (0.5 %) 10 ml {Note: administered by Reyes BE to bb affected area.} Volume: 10 ml; Route: Infiltration; 00:33 Follow up: Response: Pain is decreased bb 00:27 Drug: Lidocaine-Epinephrine -1%: (1:100,000) 10 ml {Note: administered by Reyes gleason to affected area.} Volume: 20 ml; Route: Infiltration; 00:33 Follow up: Response: Pain is decreased bb 00:33 Drug: Ondansetron 4 mg Route: PO; bb 00:33 Follow up: Response: Medication administered at discharge. bb Outcome: 00:18 Discharge ordered by . alexys 00:35 Discharged to home ambulatory, with family. bb 00:35 Condition: stable 00:35 Discharge instructions given to patient, Instructed on discharge instructions, follow up and referral plans. medication usage, Demonstrated understanding of instructions, follow-up care, medications, Prescriptions given X 3. 00:36 Patient left the ED. bb Signatures: Piyush De Anda RN Zaira Oswald RN RN bb Page, Corey, PA PA cp [place], [facility] Corrections: (The following items were deleted from the chart) 10/21 22:34 22:31 Chief complaint: Patient states: has been getting treated for infected tooth by em dentist for 1 month, has completed 2 rounds of clindamycin and pain and swelling has been getting worse, denies fever em
[2020-10-22] MEDS ORDERED: ONDANSETRON 4 MG (ODT) TAB ONE (00:51)
[2020-10-22 00:56] VITALS: TEMP 97.7
[2020-10-22 00:58] VITALS: BP 121/81; O2SAT 100
== END 2020-10-22 00:36 | disposition home or self-care (01) ==
LOC: ER 22:01
DX: K08.89 Other specified disorders of teeth and supporting structures (principal); I10 Essential (primary) hypertension; Z88.4 Allergy status to anesthetic agent; Z88.6 Allergy status to analgesic agent; Z88.8 Allergy status to other drugs, medicaments and biological substances; Z91.013 Allergy to seafood; Z91.041 Radiographic dye allergy status
CPT/HCPCS: 99283

== ENCOUNTER 2021-07-27 17:35 | Emergency (ER) | payer OTHER ==
--- OUTSIDE RECORDS SUMMARY | 2021-07-27 17:45 | XMS REPORT | Continuity of Care Document ---
:1970 Author Organization [facility] t Address [address] [place] [address] Care Team Providers Name Role Phone NONE Primary Care Physician Unavailable BRUNO Attending Clinician Unavailable BRUNO Attending Clinician Unavailable Nemesio ESQUIVEL Attending Clinician Unavailable Nemesio Murphy Attending Clinician Doctor Unassigned, Name Attending Clinician Unavailable JERMAINE Attending Clinician Unavailable MCKAYLA Attending Clinician Unavailable Lab, Fam Pob I Attending Clinician Unavailable Palomo BAIRD Attending Clinician PALOMO Attending Clinician Unavailable Tio Coppola DO Attending Clinician Braeden Molina MD Attending Clinician Unavailable CINTHIA Attending Clinician Unavailable CARMEN Attending Clinician Unavailable TACO Attending Clinician Unavailable SREEDHAR DEWEY Attending Clinician Unavailable UNKNOWN Attending Clinician Unavailable Vtc-Lab Attending Clinician Unavailable Dalila BRYSON Attending Clinician DALILA Attending Clinician Unavailable Pcp-Lab Attending Clinician Unavailable Unknown Attending Clinician Unavailable Pb BRYSON Attending Clinician Tito Champagne MD Attending Clinician Tito CHAMPAGNE Attending Clinician Unavailable ELIZABETH MOSS Attending Clinician Unavailable Catherine MURILLO Attending Clinician Saad Villagomez MD Attending Clinician Elizabeth Moss MD Attending Clinician Silas Pino MD Attending Clinician [phone] Carrie BRYSON Attending Clinician Marleen Attending Clinician Unavailable Jack Cyr MD Attending Clinician Sreedhar Dewey MD Attending Clinician Donta MARY Attending Clinician Dante BRYSON Attending Clinician Alma BRYSON Attending Clinician Skye BRYSON T Attending Clinician KATELYN Attending Clinician Unavailable CINTHIA Admitting Clinician Unavailable Marleen Admitting Clinician Unavailable Alma BRYSON Admitting Clinician Payers Payer Name Policy Type Policy Number Effective Date Expiration Date Micheline HERNANDEZ/[facility] DUAL [id number] 2020 COMP HMO D SNP 00:00:00 [place]ICAID [place] [id number] 2018 00:00:00 CIG[employer] TOTAL CARE [id number] 2020 MEDICARE HMO DSNP 00:00:00 MEDICARE-PART B 5 [id number] 2020 00:00:00 [facility] [id number] 2017 DUAL COMPLETE 00:00:00 [facility] - [id number] DUAL COMPLETE - DUAL ELIGIBLE - SNP (MEDICARE-MEDICAID REPLACEMENT HMO) [place]: ACS - [id number] TMHP - TRADITIONAL Problems Condition Condition Condition Status Onset Resolution Last Treating Co mments Source Name Details Category Date Date Treatment Clinician Date Chest pain Chest pain Disease Active U nivers 7-23 ity of 00:00: [place] [facility] Nonspecifi Nonspecifi Disease Active 2017-05 U nivers c chest c chest 0-17 ity of pain pain 00:00: [place] [facility] Obesity Obesity Disease Active 2017-05 Univers (BMI (BMI 0-17 ity of 30-39.9) 30-39.9) 00:00: [place] [facility] Occlusion Occlusion Disease Active Uni vers and and 730 ity of stenosis stenosis 00:00: [facility] Medical multiple multiple Branch and and 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 Essential Essential Disease Active Uni vers hypertensi hypertensi 7-30 it y of on on 00:00: Medical Branch Type 2 Type 2 Disease Active Univers diabetes diabetes 30 ity of mellitus mellitus 00:00: [place] with other with other 00 Me dical specified specified Bran ch complicati complicati on on Mixed Mixed Disease Active Univers hyperlipid hyperlipid 30 it y of emia emia 00:00: [place] [facility] SANDHYA SANDHYA Disease Active Univers (obstructi (obstructi 12-09 it y of ve sleep ve sleep 00:00: [place] apnea) apnea) 00 Medical Branch Occlusion Occlusion Disease Active Uni vers and and 730 ity of stenosis stenosis 00:00: [place] of Medical multiple multiple Branch and and 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 Occlusion Occlusion Disease Active Uni vers and and 730 ity of stenosis stenosis 00:00: [place] of Medical multiple multiple Branch and and 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 History of History of Problem [...] Dermatitis Problem Active U nivers [facility]y of [place] [facility] 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 [facility] of [place] [facility] Arthralgia Arthralgia Problem Active U nivers of of ity of multiple multiple [place] sites sites Physici ans Need for Need for Problem Active Unive rs hepatitis hepatitis ity of C C [place] screening screening Phys ici test test ans Screening Screening Problem Active Uni vers for skin for skin [place] condition [place] [facility] Low back Low back Problem Active Unive rs pain pain ity of [place] [facility] Allergies, Adverse Reactions, Alerts Allergy Allergy Status Severity Reaction(s) Onset Inactive Treating Comm ents Source Name Type Date Date Clinician Seafood/ Food Active Anaphylaxis Uni vers Fish Allergy 7- ity of 00:00: [place] 00 Medical Branch SEAFOOD/ Food Active High Anaphylaxis Uni vers FISH 7- ity of 00:00: [place] 00 [facility] lisinopr DA Active [place] 2019-[facility] iodine DA Active SV 2018-0 [facility] 4-05 [facility]: d [facility] lorazepa DA Active [place] 2019-0 [facility] m 4-05 [facility]: d [facility] aspirin DA Active [place] 2019-0 [facility] 4-05 [facility] 00:[facility]: d [facility] ropiniro DA Active [place] 2019-0 [facility] le 4-05 [facility] 00:[facility]: d [facility] lisinopr DA Active [place] 2019-0 [facility] 3-31 [facility] 00:[facility]: d [facility] iodine DA Active SV 2019-0 [facility] 3-31 [facility] 00:[facility]: d [facility] lorazepa DA Active [place] 2019-0 [facility] m 3-31 [facility] 00:[facility]: d [facility] aspirin DA Active [place] 2019-0 [facility] 3-31 [facility] 00:[facility]: d [facility] ropiniro DA Active [place] 2019-0 [facility] le 3-31 [facility] 00:[facility]: d [facility] iodine DA Active SV 2019-0 [facility] 1-05 [facility] 00:[facility]: d 00 [facility] lisinopr DA Active [place] 2019-0 [facility] 1-01 [facility] 00:[facility]: d [facility] iodine DA Active [place] 2019-0 [facility] 1- [facility] 00:00: d 00 [facility] lorazepa DA Active MO 2018-0 [facility] m 1 [facility] 00:00: d 00 [facility] aspirin DA Active [place] 2019-0 [facility] 05-13 [facility] 00:00: d 00 [facility] ropiniro DA Active [place] 2019-0 [facility] le 05-13 [facility] 00:00: d 00 [facility] Lisinopr Propensi Active Cough 2017-05 Persisten Uni vers il ty to 0-17 t cough ity of adverse 00:00: [place] reaction 00 Medical s to Branch drug Ropiniro Propensi Active Other - See 2017-05 Severe U nivers le ty to comments 0-17 hypotensi ity o f adverse 00:00: on [place] reaction Medical s to Branch drug Shellfis Propensi Active Palpitations 2017-05 Univers h ty to 0-17 ity of Derived adverse 00:00: [place] reaction 00 Medical s Branch LISINOPR DRUG Active Med COUGH 2017-05 Univers IL INGREDI 0-17 ity of 00:00: [place] 00 Medical [place] lorazepa DA Active MO 2017-05 [facility] m 0-14 [facility] 00:00: d 00 [facility] lisinopr DA Active [place] 2017-0 [facility] il 8-25 Clear 00:00: [place] [facility] iodine DA Active [place] 2018-0 [facility] 8-25 Clear 00:00: [place] [facility] aspirin DA Active [place] 2018-0 [facility] 8-25 Clear 00:00: [place] [facility] ropiniro DA Active [place] 2018-0 [facility] le 8-25 Clear 00:00: [place] [address] [facility] ATORVAST DRUG Active Low Unknown-Cmnt Un alfonso ATIN INGREDI 7-30 ity of 00:00: [place] 00 Medical Branch Aspirin Propensi Active Other - See 2018 GI Un alfonso ty to comments 7-30 bleeding ity of adverse 00:00: [place] reaction 00 Medical s Branch Atorvast Propensi Active Other - See CoughCou g Univers atin ty to comments 7-30 h ity of adverse 00:00: [place] reaction 00 Medical s Branch Aspirin Propensi Active Other - See 2017 GI Un alfonso ty to comments 6- bleedingO ity o f adverse 00:00: ther [place] reaction 00 reaction( Medic al s s): GI Branch BleedingG I bleeding Ropiniro Propensi Active Other - See Severe U nivers le ty to comments 10-11 hypotensi ity o f adverse 00:00: onHypoten [place] reaction 00 sive for Medica l s to 2 days. Branch drug Shellfis Propensi Active Anaphylaxis Cardiac Univers h ty to 10-11 arrest ity of Derived adverse 00:00: [place] reaction 00 Medical s Branch ASPIRIN DRUG Active High Other-Cmnt Unive rs INGREDI 10-11 ity of 00:00: [place] [facility] ROPINIRO DRUG Active High Other-Cmnt Univ ers LE INGREDI 10-11 ity of 00:00: [place] [facility] SHELLFIS DRUG Active High Palpitations Un alfonso H INGREDI 10-11 ity of DERIVED 00:00: [place] 00 Medical Branch IODINE DRUG Active Hives 2007- Univers INGREDI 05-19 ity of 00:00: [place] [facility] Iodine Propensi Active Hives IV iodine Unive rs ty to 05-19 and ity of adverse 00:00: iodine [place] reaction 00 -Cardiac Medica l s arrest Branch Iodine drug Active Univers SOLN allergy [facility] of [place] [facility] Social History Social Habit Start Date Stop Date Quantity Comments Source Exposure to Not sure [facility] SARS-CoV-2 [place] [facility] (event) Branch Alcohol intake 2021-07-21 2021-07-21 Current University of 00:00:00 00:00:00 non-drinker of [facility] alcohol Branch (finding) Tobacco use and 2017-12-09 2017-12-09 Never used Universit y of exposure 00:00:00 00:00:00 [facility] [place] [facility] Sex [birth year] At [birth year] Universit y of 00:00:00 00:00:00 [facility] [place] [facility] Smoking Status Start Date Stop Date Source Never smoker [facility] Medications Ordered Filled Start Stop Current Ordering Indication Dosage Frequency Signature Comments Components Source Medication Medication Date Date Medication? Clinician (SIG) Name Name HYDROmorpho Yes 4mg Take 4 mg U nivers ne 4 mg 3-11 by mouth 2 ity of tablet 14:26: (two) [place] 11 times Medical daily as Branch needed. montelukast Yes 10mg Take 10 mg Univers (SINGULAIR) 3-11 by mouth. ity of 10 mg 14:26: [place] tablet 11 Medical Branch losartan 25 0 Yes 25mg Take 25 mg Univers mg tablet 3-11 by mouth ity of 14:26: daily. [place] 11 Medical Branch metFORMIN 2021-0 Yes [id number] 1000mg Take 1 Univers 1,000 mg 3-04 tablet by ity of tablet 00:00: mouth 2 (two) Medical times Branch daily with meals. losartan 50 Yes [id number] 50mg Take 1 Univers mg tablet 3-04 tablet by ity o f 00:00: mouth 00 daily. Medical Branch ondansetron Yes Univer s 8 mg tablet 3-03 ity of 00:00: [place] 00 Medical Branch cyclobenzap Yes TAKE 1 Univ ers rine 10 mg 2-15 TABLET BY ity of tablet 00:00: MOUTH 00 THREE Medical TIMES Branch DAILY NEEDED FOR SPASMS Diclofenac Yes APPLY 2 Univ ers Sodium 1 % 2-15 GRAMS ity of gel 00:00: TOPICALLY TO THE Medical AFFECTED Branch AREA FOUR TIMES DAILY DIRECTED pregabalin Yes TAKE 1 Unive rs 200 mg 2-15 CAPSULE BY ity of capsule 00:00: MOUTH 00 TWICE Medical DAILY Branch DIRECTED hydrOXYzine 2019- Yes [id number] 50mg Take 1 Univers 50 mg 1-23 tablet by ity of tablet 00:00: mouth 3 (three) Medical times Branch daily as needed for Anxiety. hydrOXYzine 2019-05 Yes [id number] 50mg Take 1 Univers 50 mg 1-23 tablet by ity of tablet 00:00: mouth 3 (three) Medical times Branch daily as needed for Anxiety. hydrOXYzine 2019-1 Yes [id number] 50mg Take 1 Univers 50 mg 1-23 tablet by ity of tablet 00:00: mouth 3 (three) Medical times Branch daily as needed for Anxiety. hydrOXYzine 2019- Yes [id number] 50mg Take 1 Univers 50 mg 1-23 tablet by ity of tablet 00:00: mouth 3 (three) Medical times Branch daily as needed for Anxiety. hydrOXYzine 0 2020- No [id number] 50mg Take 1 Univers 50 mg 5- 06-07 tablet by ity of tablet 00:00: 04:59 mouth [place] 00 :00 every 8 Medical (eight) Branch hours as needed for Itching for up to 30 days. HYDROmorpho 2020-0 Yes 4mg Take 4 mg U nivers ne 4 mg 4-01 by mouth 2 ity of tablet 19:39: (two) [place] 27 times Medical daily as Branch needed. HYDROmorpho 2020-0 Yes 4mg Take 4 mg U nivers ne 4 mg 4-01 by mouth 2 ity of tablet 19:39: (two) [place] 27 times Medical daily as Branch needed. HYDROmorpho 2020-0 Yes 4mg Take 4 mg U nivers ne 4 mg 4-01 by mouth 2 ity of tablet 19:39: (two) [place] 27 times Medical daily as Branch needed. HYDROmorpho 2020-0 Yes 4mg Take 4 mg U nivers ne 4 mg 4-01 by mouth 2 ity of tablet 19:39: (two) [place] 27 times Medical daily as Branch needed. HYDROmorpho 2020-0 Yes 4mg Take 4 mg U nivers ne 4 mg 4-01 by mouth 2 ity of tablet 19:39: (two) [place] 27 times Medical daily as Branch needed. HYDROmorpho 2020-0 Yes 4mg Take 4 mg U nivers ne 4 mg 4-01 by mouth 2 ity of tablet 19:39: (two) [place] 27 times Medical daily as Branch needed. HYDROmorpho 2020-0 Yes 4mg Take 4 mg U nivers ne 4 mg 4-01 by mouth 2 ity of tablet 19:39: (two) [place] 27 times Medical daily as Branch needed. HYDROmorpho 2020-0 Yes 4mg Take 4 mg U nivers ne 4 mg 4-01 by mouth 2 ity of tablet 19:39: (two) [place] 27 times Medical daily as Branch needed. HYDROmorpho 2020-0 Yes 4mg Take 4 mg U nivers ne 4 mg 4-01 by mouth 2 ity of tablet 19:39: (two) [place] 27 times Medical daily as Branch needed. HYDROmorpho 2020-0 Yes 4mg Take 4 mg U nivers ne 4 mg 4-01 by mouth 2 ity of tablet 19:39: (two) [place] 27 times Medical daily as Branch needed. HYDROmorpho 2020-0 Yes 4mg Take 4 mg U nivers ne 4 mg 4-01 by mouth 2 ity of tablet 19:39: (two) [place] 27 times Medical daily as Branch needed. HYDROmorpho 2020-0 Yes 4mg Take 4 mg U nivers ne 4 mg 4-01 by mouth 2 ity of tablet 19:39: (two) [place] 27 times Medical daily as Branch needed. cyclobenzap 2020-0 2020- No 10mg Take 10 mg Univers rine 10 mg 4-01 04-01 by mouth 3 it y of tablet 19:39: 00:00 (three) [place] 17 :00 times Medical daily as Branch needed for Muscle Spasms. HYDROmorpho 2020-0 Yes 4mg Take 4 mg U nivers ne 4 mg 4-01 by mouth 2 ity of tablet 14:39: (two) [place] 27 times Medical daily as Branch needed. pregabalin 2020-0 2020- No [id number] 50mg Take 1 Univers 50 mg 4-01 05-02 capsule by ity of capsule 00:00: 04:59 mouth 3 [place] 00 :00 (three) Medical times Branch daily for 30 days. pregabalin 2020-0 2020- No [id number] 50mg Take 1 Univers 50 mg 4-01 05-02 capsule by ity of capsule 00:00: 04:59 mouth 3 [place] 00 :00 (three) Medical times Branch daily for 30 days. pregabalin 2020-0 2020- No [id number] 50mg Take 1 Univers 50 mg 4-01 05-02 capsule by ity of capsule 00:00: 04:59 mouth 3 [place] 00 :00 (three) Medical times Branch daily for 30 days. pregabalin 2020-0 2020- No [id number] 50mg Take 1 Univers 50 mg 4-01 05-02 capsule by ity of capsule 00:00: 04:59 mouth 3 [place] 00 :00 (three) Medical times Branch daily for 30 days. pregabalin 2020-0 2020- No [id number] 50mg Take 1 Univers 50 mg 4-01 05-02 capsule by ity of capsule 00:00: 04:59 mouth 3 [place] 00 :00 (three) Medical times Branch daily for 30 days. budesonide- 2020-0 Yes [id number] 2{puff} Inhale 2 Univers formoteroL 3-27 Puffs 2 ity of (SYMBICORT) 00:00: (two) [place] 160-4.5 00 times Medical mcg/actuati daily. Branch on inhaler budesonide- 2019-0 Yes [id number] 2{puff} Inhale 2 Univers formoteroL 3-27 Puffs 2 ity of (SYMBICORT) 00:00: (two) [place] 160-4.5 00 times Medical mcg/actuati daily. Branch on inhaler budesonide- 2019-0 Yes [id number] 2{puff} Inhale 2 Univers formoteroL 3-27 Puffs 2 ity of (SYMBICORT) 00:00: (two) [place] 160-4.5 00 times Medical mcg/actuati daily. Branch on inhaler budesonide- 2019-0 Yes [id number] 2{puff} Inhale 2 Univers formoteroL 3-27 Puffs 2 ity of (SYMBICORT) 00:00: (two) [place] 160-4.5 00 times Medical mcg/actuati daily. Branch on inhaler budesonide- 0 Yes [id number] 2{puff} Inhale 2 Univers formoteroL 3-27 Puffs 2 ity of (SYMBICORT) 00:00: (two) [place] 160-4.5 00 times Medical mcg/actuati daily. Branch on inhaler budesonide- 2019-0 Yes [id number] 2{puff} Inhale 2 Univers formoteroL 3-27 Puffs 2 ity of (SYMBICORT) 00:00: (two) [place] 160-4.5 00 times Medical mcg/actuati daily. Branch on inhaler budesonide- 2019-0 Yes [id number] 2{puff} Inhale 2 Univers formoteroL 3-27 Puffs 2 ity of (SYMBICORT) 00:00: (two) [place] 160-4.5 00 times Medical mcg/actuati daily. Branch on inhaler budesonide- 2019-0 Yes [id number] 2{puff} Inhale 2 Univers formoteroL 3-27 Puffs 2 ity of (SYMBICORT) 00:00: (two) [place] 160-4.5 00 times Medical mcg/actuati daily. Branch on inhaler budesonide- 2019-0 Yes [id number] 2{puff} Inhale 2 Univers formoteroL 3-27 Puffs 2 ity of (SYMBICORT) 00:00: (two) [place] 160-4.5 00 times Medical mcg/actuati daily. Branch on inhaler budesonide- 0 Yes [id number] 2{puff} Inhale 2 Univers formoteroL 3-27 Puffs 2 ity of (SYMBICORT) 00:00: (two) [place] 160-4.5 00 times Medical mcg/actuati daily. Branch on inhaler budesonide- 0 Yes [id number] 2{puff} Inhale 2 Univers formoteroL 3-27 Puffs 2 ity of (SYMBICORT) 00:00: (two) [place] 160-4.5 00 times Medical mcg/actuati daily. Branch on inhaler budesonide- Yes [id number] 2{puff} Inhale 2 Univers formoteroL 3-27 Puffs 2 ity of (SYMBICORT) 00:00: (two) [place] 160-4.5 00 times Medical mcg/actuati daily. Branch on inhaler budesonide- 0 Yes [id number] 2{puff} Inhale 2 Univers formoteroL 3-27 Puffs 2 ity of (SYMBICORT) 00:00: (two) [place] 160-4.5 00 times Medical mcg/actuati daily. Branch on inhaler budesonide- 0 Yes [id number] 2{puff} Inhale 2 Univers formoteroL 3-27 Puffs 2 ity of (SYMBICORT) 00:00: (two) [place] 160-4.5 00 times Medical mcg/actuati daily. Branch on inhaler budesonide- 2019-0 Yes [id number] 2{puff} Inhale 2 Univers formoteroL 3-27 Puffs 2 ity of (SYMBICORT) 00:00: (two) [place] 160-4.5 00 times Medical mcg/actuati daily. Branch on inhaler budesonide- 0 Yes [id number] 2{puff} Inhale 2 Univers formoteroL 3-27 Puffs 2 ity of (SYMBICORT) 00:00: (two) [place] 160-4.5 00 times Medical mcg/actuati daily. Branch on inhaler budesonide- 2019-0 Yes [id number] 2{puff} Inhale 2 Univers formoteroL 3-27 Puffs 2 ity of (SYMBICORT) 00:00: (two) [place] 160-4.5 00 times Medical mcg/actuati daily. Branch on inhaler CLOPIDOGREL 2020-0 Yes TAKE 1 Univ ers 75 mg 3-23 TABLET BY ity of tablet 00:00: MOUTH [place] 00 DAILY Medical Branch SERTraline 2020-0 Yes [id number] 50mg Take 1 U nivers 50 mg 3-23 tablet by ity of tablet 00:00: mouth [place] 00 daily. Medical Branch CLOPIDOGREL 2020-0 Yes TAKE 1 Univ ers 75 mg 3-23 TABLET BY ity of tablet 00:00: MOUTH [place] 00 DAILY Medical Branch CLOPIDOGREL 2020-0 Yes TAKE 1 Univ ers 75 mg 3-23 TABLET BY ity of tablet 00:00: MOUTH [place] 00 DAILY Medical Branch SERTraline 2020-0 Yes [id number] 50mg Take 1 U nivers 50 mg 3-23 tablet by ity of tablet 00:00: mouth [place] 00 daily. Medical Branch CLOPIDOGREL 2020-0 Yes TAKE 1 Univ ers 75 mg 3-23 TABLET BY ity of tablet 00:00: MOUTH [place] 00 DAILY Medical Branch SERTraline 2020-0 Yes [id number] 50mg Take 1 U nivers 50 mg 3-23 tablet by ity of tablet 00:00: mouth [place] 00 daily. Medical Branch CLOPIDOGREL 2020-0 Yes TAKE 1 Univ ers 75 mg 3-23 TABLET BY ity of tablet 00:00: MOUTH [place] 00 DAILY Medical Branch SERTraline 2020-0 Yes [id number] 50mg Take 1 U nivers 50 mg 3-23 tablet by ity of tablet 00:00: mouth [place] 00 daily. Medical Branch CLOPIDOGREL 2020-0 Yes TAKE 1 Univ ers 75 mg 3-23 TABLET BY ity of tablet 00:00: MOUTH [place] 00 DAILY Medical Branch SERTraline 2020-0 Yes [id number] 50mg Take 1 U nivers 50 mg 3-23 tablet by ity of tablet 00:00: mouth [place] 00 daily. Medical Branch CLOPIDOGREL 2020-0 Yes TAKE 1 Univ ers 75 mg 3-23 TABLET BY ity of tablet 00:00: MOUTH [place] 00 DAILY Medical Branch SERTraline 2020-0 Yes [id number] 50mg Take 1 U nivers 50 mg 3-23 tablet by ity of tablet 00:00: mouth [place] 00 daily. Medical Branch CLOPIDOGREL 2020-0 Yes TAKE 1 Univ ers 75 mg 3-23 TABLET BY ity of tablet 00:00: MOUTH [place] 00 DAILY Medical Branch SERTraline 2020-0 Yes [id number] 50mg Take 1 U nivers 50 mg 3-23 tablet by ity of tablet 00:00: mouth [place] 00 daily. Medical Branch CLOPIDOGREL 2020-0 Yes TAKE 1 Univ ers 75 mg 3-23 TABLET BY ity of tablet 00:00: MOUTH [place] 00 DAILY Medical Branch SERTraline 2020-0 Yes [id number] 50mg Take 1 U nivers 50 mg 3-23 tablet by ity of tablet 00:00: mouth [place] 00 daily. Medical Branch CLOPIDOGREL 2020-0 Yes TAKE 1 Univ ers 75 mg 3-23 TABLET BY ity of tablet 00:00: MOUTH [place] 00 DAILY Medical Branch SERTraline 2020-0 Yes [id number] 50mg Take 1 U nivers 50 mg 3-23 tablet by ity of tablet 00:00: mouth [place] 00 daily. Medical Branch CLOPIDOGREL 2020-0 Yes TAKE 1 Univ ers 75 mg 3-23 TABLET BY ity of tablet 00:00: MOUTH [place] 00 DAILY Medical Branch SERTraline 2020-0 Yes [id number] 50mg Take 1 U nivers 50 mg 3-23 tablet by ity of tablet 00:00: mouth [place] 00 daily. Medical Branch CLOPIDOGREL 2020-0 Yes TAKE 1 Univ ers 75 mg 3-23 TABLET BY ity of tablet 00:00: MOUTH [place] 00 DAILY Medical Branch SERTraline 2020-0 Yes [id number] 50mg Take 1 U nivers 50 mg 3-23 tablet by ity of tablet 00:00: mouth [place] 00 daily. Medical Branch CLOPIDOGREL 2020-0 Yes TAKE 1 Univ ers 75 mg 3-23 TABLET BY ity of tablet 00:00: MOUTH [place] 00 DAILY Medical Branch SERTraline 2020-0 Yes [id number] 50mg Take 1 U nivers 50 mg 3-23 tablet by ity of tablet 00:00: mouth [place] 00 daily. Medical Branch CLOPIDOGREL 2020-0 Yes TAKE 1 Univ ers 75 mg 3-23 TABLET BY ity of tablet 00:00: MOUTH [place] 00 DAILY Medical Branch SERTraline 2020-0 Yes [id number] 50mg Take 1 U nivers 50 mg 3-23 tablet by ity of tablet 00:00: mouth [place] 00 daily. Medical Branch CLOPIDOGREL 2020-0 Yes TAKE 1 Univ ers 75 mg 3-23 TABLET BY ity of tablet 00:00: MOUTH [place] 00 DAILY Medical Branch SERTraline 2020-0 Yes [id number] 50mg Take 1 U nivers 50 mg 3-23 tablet by ity of tablet 00:00: mouth [place] 00 daily. Medical Branch CLOPIDOGREL 2020-0 Yes TAKE 1 Univ ers 75 mg 3-23 TABLET BY ity of tablet 00:00: MOUTH [place] 00 DAILY Medical Branch SERTraline 2020-0 Yes [id number] 50mg Take 1 U nivers 50 mg 3-23 tablet by ity of tablet 00:00: mouth [place] 00 daily. Medical Branch CLOPIDOGREL 2020-0 Yes TAKE 1 Univ ers 75 mg 3-23 TABLET BY ity of tablet 00:00: MOUTH [place] 00 DAILY Medical Branch SERTraline 2020-0 Yes [id number] 50mg Take 1 U nivers 50 mg 3-23 tablet by ity of tablet 00:00: mouth [place] 00 daily. Medical Branch CLOPIDOGREL 2020-0 Yes TAKE 1 Univ ers 75 mg 3-23 TABLET BY ity of tablet 00:00: MOUTH [place] 00 DAILY Medical Branch SERTraline 2020-0 Yes [id number] 50mg Take 1 U nivers 50 mg 3-23 tablet by ity of tablet 00:00: mouth [place] 00 daily. Medical Branch CLOPIDOGREL 2020-0 Yes TAKE 1 Univ ers 75 mg 3-23 TABLET BY ity of tablet 00:00: MOUTH [place] 00 DAILY Medical Branch SERTraline 2020-0 Yes [id number] 50mg Take 1 U nivers 50 mg 3-23 tablet by ity of tablet 00:00: mouth [place] 00 daily. Medical Branch CLOPIDOGREL 2020-0 Yes TAKE 1 Univ ers 75 mg 3-23 TABLET BY ity of tablet 00:00: MOUTH [place] 00 DAILY Medical Branch SERTraline 2020-0 Yes [id number] 50mg Take 1 U nivers 50 mg 3-23 tablet by ity of tablet 00:00: mouth [place] 00 daily. Medical Branch CLOPIDOGREL 2020-0 Yes TAKE 1 Univ ers 75 mg 3-23 TABLET BY ity of tablet 00:00: MOUTH [place] 00 DAILY Medical Branch SERTraline 2020-0 Yes [id number] 50mg Take 1 U nivers 50 mg 3-23 tablet by ity of tablet 00:00: mouth [place] 00 daily. Medical Branch CLOPIDOGREL 2020-0 Yes TAKE 1 Univ ers 75 mg 3-23 TABLET BY ity of tablet 00:00: MOUTH [place] 00 DAILY Medical Branch SERTraline 2020-0 Yes [id number] 50mg Take 1 U nivers 50 mg 3-23 tablet by ity of tablet 00:00: mouth [place] 00 daily. Medical Branch CLOPIDOGREL 2020-0 Yes TAKE 1 Univ ers 75 mg 3-23 TABLET BY ity of tablet 00:00: MOUTH [place] 00 DAILY Medical Branch SERTraline 2020-0 Yes [id number] 50mg Take 1 U nivers 50 mg 3-23 tablet by ity of tablet 00:00: mouth [place] 00 daily. Medical Branch CLOPIDOGREL 2020-0 Yes TAKE 1 Univ ers 75 mg 3-23 TABLET BY ity of tablet 00:00: MOUTH [place] 00 DAILY Medical Branch SERTraline 2020-0 Yes [id number] 50mg Take 1 U nivers 50 mg 3-23 tablet by ity of tablet 00:00: mouth [place] 00 daily. Medical Branch CLOPIDOGREL 2020-0 Yes TAKE 1 Univ ers 75 mg 3-23 TABLET BY ity of tablet 00:00: MOUTH [place] 00 DAILY Medical Branch SERTraline 2020-0 Yes [id number] 50mg Take 1 U nivers 50 mg 3-23 tablet by ity of tablet 00:00: mouth [place] 00 daily. Medical Branch diphenhydrA 2020-0 Yes [id number] 25mg Take 1 Univers MINE 1-07 capsule by ity of (BENADRYL) 00:00: mouth 2 [place] 25 [place] 00 (two) Medical capsule times Branch daily. predniSONE 2020-0 Yes [id number] 10mg Take 1 [facility] 10 mg 1-07 tablet by ity of tablet 00:00: mouth [place] 00 daily. Medical [facility] diphenhydrA 2020-0 Yes [id number] 25mg Take 1 [facility] MINE 1-07 capsule by ity of (BENADRYL) 00:00: mouth [place] 25 mg 00 (two) Medical capsule times Branch daily. predniSONE 2020-0 Yes [id number] 10mg Take 1 [facility] 10 mg 1-07 tablet by ity of tablet 00:00: mouth [place] 00 daily. Medical [facility] diphenhydrA 2020-0 Yes [id number] 25mg Take 1 [facility] MINE 1-07 capsule by ity of (BENADRYL) 00:00: mouth [place] 25 mg 00 (two) Medical capsule times Branch daily. predniSONE 2020-0 Yes [id number] 10mg Take 1 [facility] 10 mg 1-07 tablet by ity of tablet 00:00: mouth [place] 00 daily. [facility] diphenhydrA 2020-0 Yes [id number] 25mg Take 1 [facility] MINE 1-07 capsule by ity of (BENADRYL) 00:00: mouth [place] 25 mg 00 (two) Medical capsule times Branch daily. predniSONE 2020-0 Yes [id number] 10mg Take 1 [facility] 10 mg 1-07 tablet by ity of tablet 00:00: mouth [place] 00 daily. [facility] diphenhydrA 2020-0 Yes [id number] 25mg Take 1 [facility] MINE 1-07 capsule by ity of (BENADRYL) 00:00: mouth [place] 25 mg 00 (two) Medical capsule times Branch daily. predniSONE 2020-0 Yes [id number] 10mg Take 1 [facility] 10 mg 1-07 tablet by ity of tablet 00:00: mouth [place] 00 daily. [facility] diphenhydrA 2020-0 Yes [id number] 25mg Take 1 [facility] MINE 1-07 capsule by ity of (BENADRYL) 00:00: mouth 2 [place] 25 mg 00 (two) Medical capsule times Branch daily. predniSONE 2020-0 Yes [id number] 10mg Take 1 [facility] 10 mg 1-07 tablet by ity of tablet 00:00: mouth [place] 00 daily. [facility] diphenhydrA 2020-0 Yes [id number] 25mg Take 1 [facility] MINE 1-07 capsule by ity of (BENADRYL) 00:00: mouth 2 [place] 25 mg 00 (two) Medical capsule times Branch daily. predniSONE 2020-0 Yes [id number] 10mg Take 1 [facility] 10 mg 1-07 tablet by ity of tablet 00:00: mouth [place] 00 daily. [facility] diphenhydrA 2020-0 Yes [id number] 25mg Take 1 [facility] MINE 1-07 capsule by ity of (BENADRYL) 00:00: mouth 2 [place] 25 mg 00 (two) Medical capsule times Branch daily. predniSONE 2020-0 Yes [id number] 10mg Take 1 [facility] 10 mg 1-07 tablet by ity of tablet 00:00: mouth [place] 00 daily. [facility] diphenhydrA 2020-0 Yes [id number] 25mg Take 1 [facility] MINE 1-07 capsule by ity of (BENADRYL) 00:00: mouth 2 [place] 25 mg 00 (two) Medical capsule times Branch daily. predniSONE 2020-0 Yes [id number] 10mg Take 1 [facility] 10 mg 1-07 tablet by ity of tablet 00:00: mouth [place] 00 daily. [facility] diphenhydrA 2020-0 Yes [id number] 25mg Take 1 [facility] MINE 1-07 capsule by ity of (BENADRYL) 00:00: mouth 2 [place] 25 mg 00 (two) Medical capsule times Branch daily. predniSONE 2020-0 Yes [id number] 10mg Take 1 [facility] 10 mg 1-07 tablet by ity of tablet 00:00: mouth [place] 00 daily. [facility] diphenhydrA 2020-0 Yes [id number] 25mg Take 1 [facility] MINE 1-07 capsule by ity of (BENADRYL) 00:00: mouth 2 [place] 25 mg 00 (two) Medical capsule times Branch daily. predniSONE 2020-0 Yes [id number] 10mg Take 1 [facility] 10 mg 1-07 tablet by ity of tablet 00:00: mouth [place] 00 daily. Medical [facility] diphenhydrA 2020-0 Yes [id number] 25mg Take 1 [facility] MINE 1-07 capsule by ity of (BENADRYL) 00:00: mouth 2 [place] 25 mg 00 (two) Medical capsule times Branch daily. predniSONE 2020-0 Yes [id number] 10mg Take 1 [facility] 10 mg 1-07 tablet by ity of tablet 00:00: mouth [place] 00 daily. Medical [facility] diphenhydrA 2020-0 Yes [id number] 25mg Take 1 [facility] MINE 1-07 capsule by ity of (BENADRYL) 00:00: mouth 2 [place] 25 mg 00 (two) Medical capsule times Branch daily. predniSONE 2020-0 Yes [id number] 10mg Take 1 [facility] 10 mg 1-07 tablet by ity of tablet 00:00: mouth [place] 00 daily. Medical [facility] diphenhydrA 2020-0 Yes [id number] 25mg Take 1 [facility] MINE 1-07 capsule by ity of (BENADRYL) 00:00: mouth 2 [place] 25 mg 00 (two) Medical capsule times Branch daily. predniSONE 2020-0 Yes [id number] 10mg Take 1 [facility] 10 mg 1-07 tablet by ity of tablet 00:00: mouth [place] 00 daily. Medical [facility] diphenhydrA 2020-0 Yes [id number] 25mg Take 1 [facility] MINE -07 capsule by ity of (BENADRYL) 00:00: mouth 2 [place] 25 mg 00 (two) Medical capsule times Branch daily. predniSONE 2020-0 Yes [id number] 10mg Take 1 [facility] 10 mg -07 tablet by ity of tablet 00:00: mouth [place] 00 daily. Medical [facility] diphenhydrA 0 2020- No [id number] 25mg Take 1 [facility] MINE -11 13- capsule by ity of (BENADRYL) 00:00: 00:00 mouth 2 [place] 25 mg 00 :00 (two) Medical capsule times Branch daily. predniSONE 0 2020- No [id number] 10mg Take 1 [facility] 10 mg 05-19- tablet by ity of tablet 00:00: 00:00 mouth [place] 00 :00 daily. Medical Branch esomeprazol 2018-05 Yes [id number] 40mg Take 40 mg [facility] e 20 mg 2-19 by mouth ity of capsule 00:00: daily. Medical Branch esomeprazol 2018-05 Yes [id number] 40mg Take 40 mg [facility] e 20 mg 2-19 by mouth ity of capsule 00:00: daily. Medical Branch esomeprazol 2018-05 Yes [id number] 40mg Take 40 mg [facility] e 20 mg 2-19 by mouth ity of capsule 00:00: daily. Medical Branch CLOPIDOGREL 2018-05 Yes TAKE 1 [facility] ers 75 mg 2-19 TABLET BY ity of tablet 00:00: MOUTH DAILY Medical Branch esomeprazol 2018-05 Yes [id number] 40mg Take 40 mg [facility] e 20 mg 2-19 by mouth ity of capsule 00:00: daily. Medical Branch CLOPIDOGREL 2018-05 Yes TAKE 1 [facility] ers 75 mg 2-19 TABLET BY ity of tablet 00:00: MOUTH 00 DAILY Medical Branch esomeprazol 2018-05 Yes [id number] 40mg Take 40 mg [facility] e 20 mg 2-19 by mouth ity of capsule 00:00: daily. Medical Branch CLOPIDOGREL 2018-05 Yes TAKE 1 [facility] ers 75 mg 2-19 TABLET BY ity of tablet 00:00: MOUTH [place] 00 DAILY Medical Branch esomeprazol 2018- Yes [id number] 40mg Take 40 mg [facility] e 20 mg 2-19 by mouth ity of capsule 00:00: daily. [place] [facility] esomeprazol 2018-05 Yes [id number] 40mg Take 40 mg [facility] e 20 mg 2-19 by mouth ity of capsule 00:00: daily. [place] [facility] esomeprazol 2018-05 Yes [id number] 40mg Take 40 mg [facility] e 20 mg 2-19 by mouth ity of capsule 00:00: daily. [place] [facility] esomeprazol 2018-05 Yes [id number] 40mg Take 40 mg [facility] e 20 mg 2-19 by mouth ity of capsule 00:00: daily. [place] [facility] esomeprazol 2018-05 Yes [id number] 40mg Take 40 mg [facility] e 20 mg 2-19 by mouth ity of capsule 00:00: daily. [place] [facility] esomeprazol 2018-05 Yes [id number] 40mg Take 40 mg [facility] e 20 mg 2-19 by mouth ity of capsule 00:00: daily. [place] [facility] esomeprazol 2018-05 Yes [id number] 40mg Take 40 mg [facility] e 20 mg 2-19 by mouth ity of capsule 00:00: daily. [place] [facility] esomeprazol 2018-05 Yes [id number] 40mg Take 40 mg [facility] e 20 mg 2-19 by mouth ity of capsule 00:00: daily. [place] [facility] esomeprazol 2018-05 Yes [id number] 40mg Take 40 mg [facility] e 20 mg 2-19 by mouth ity of capsule 00:00: daily. [place] [facility] esomeprazol 2018-05 Yes [id number] 40mg Take 40 mg [facility] e 20 mg 2-19 by mouth ity of capsule 00:00: daily. [place] [facility] esomeprazol 2018-05 Yes [id number] 40mg Take 40 mg [facility] e 20 mg 2-19 by mouth ity of capsule 00:00: daily. [place] [facility] esomeprazol 2018-05 Yes [id number] 40mg Take 40 mg [facility] e 20 mg 2-19 by mouth ity of capsule 00:00: daily. [place] [facility] esomeprazol 2018-05 Yes [id number] 40mg Take 40 mg [facility] e 20 mg 2-19 by mouth ity of capsule 00:00: daily. [facility] esomeprazol 2018-05 Yes [id number] 40mg Take 40 mg [facility] e 20 mg 2-19 by mouth ity of capsule 00:00: daily. [facility] esomeprazol 2018-05 Yes [id number] 40mg Take 40 mg [facility] e 20 mg 2-19 by mouth ity of capsule 00:00: daily. [place] [facility] esomeprazol 2018-05 Yes [id number] 40mg Take 40 mg [facility] e 20 mg 2-19 by mouth ity of capsule 00:00: daily. [place] [facility] esomeprazol 2018-05 Yes [id number] 40mg Take 40 mg [facility] e 20 mg 2-19 by mouth ity of capsule 00:00: daily. [place] [facility] esomeprazol 2018-05 Yes [id number] 40mg Take 40 mg [facility] e 20 mg 2-19 by mouth ity of capsule 00:00: daily. [place] [facility] esomeprazol 2018-05 Yes [id number] 40mg Take 40 mg [facility] e 20 mg 2-19 by mouth ity of capsule 00:00: daily. [place] [facility] esomeprazol 2018-05 Yes [id number] 40mg Take 40 mg [facility] e 20 mg 2-19 by mouth ity of capsule 00:00: daily. [place] [facility] esomeprazol 2018-05 Yes [id number] 40mg Take 40 mg [facility] e 20 mg 2-19 by mouth ity of capsule 00:00: daily. [place] [facility] esomeprazol 2018-05 Yes [id number] 40mg Take 40 mg [facility] e 20 mg 2-19 by mouth ity of capsule 00:00: daily. [place] [facility] esomeprazol 2018-05 Yes [id number] 40mg Take 40 mg [facility] e 20 mg 2-19 by mouth ity of capsule 00:00: daily. [place] [facility] esomeprazol 2018-05 Yes [id number] 40mg Take 40 mg [facility] e 20 mg 2-19 by mouth ity of capsule 00:00: daily. [address] CLOPIDOGREL 2018-05 2020- No TAKE 1 [facility] vers 75 mg 2-19 08-02 TABLET BY ity of tablet 00:00: 00:00 MOUTH [place] 00 :00 DAILY Medical Branch albuterol 2018-05 Yes [id number] 2{puff} Inhale 2 [facility] (PROAIR 2-17 Puffs ity of HFA) 90 00:00: every 6 [place] mcg/actuati 00 (six) Medical on inhaler hours as Branc h needed for Wheezing, Shortness of Breath or Chest tightness. fluticasone 2018-05 Yes [id number] 1{spray Use 1 [facility] propionate 2-17 } [place] in ity o f 50 00:00: each [place] mcg/actuati 00 nostril 2 Med ical on nasal (two) Branch spray times daily. EPINEPHrine 2018-05 Yes [id number] .3mg 0.3 mL by [facility] (EPIPEN 2-17 Intramuscu ity of 2-JOVI) 0.3 00:00: lar route [place] mg/0.3 mL 00 as needed Medic al injection (anaphylax Bran ch is). albuterol 2018-05 Yes [id number] 2{puff} Inhale 2 [facility] (PROAIR 2-17 Puffs ity of HFA) 90 00:00: every 6 [place] mcg/actuati 00 (six) Medical on inhaler hours as Branc h needed for Wheezing, Shortness of Breath or Chest tightness. albuterol 2018-05 Yes [id number] 2{puff} Inhale 2 [facility] (PROAIR 2-17 Puffs ity of HFA) 90 00:00: every 6 [place] mcg/actuati 00 (six) Medical on inhaler hours as Branc h needed for Wheezing, Shortness of Breath or Chest tightness. budesonide- 2018-05 Yes [id number] 2{puff} Inhale 2 [facility] formoterol 2-17 Puffs 2 ity of 80-4.5 00:00: (two) [place] mcg/actuati 00 times Medical on inhaler daily. Branch fluticasone 2018-05 Yes [id number] 1{spray Use 1 [facility] propionate 2-17 } [place] in ity o f 50 00:00: each [place] mcg/actuati 00 nostril 2 Med ical on nasal (two) Branch spray times daily. EPINEPHrine 2018-05 Yes [id number] .3mg 0.3 mL by [facility] (EPIPEN 2-17 Intramuscu ity of 2-JOVI) 0.3 00:00: lar route [place] mg/0.3 mL 00 as needed Medic al injection (anaphylax Bran ch is). albuterol 2018-05 Yes [id number] 2{puff} Inhale 2 [facility] (PROAIR 2-17 Puffs ity of HFA) 90 00:00: every 6 [place] mcg/actuati 00 (six) Medical on inhaler hours as Branc h needed for Wheezing, Shortness of Breath or Chest tightness. budesonide- 2018-05 Yes [id number] 2{puff} Inhale 2 [facility] formoterol 2-17 Puffs 2 ity of 80-4.5 00:00: (two) [place] mcg/actuati 00 times Medical on inhaler daily. Branch fluticasone 2018-05 Yes [id number] 1{spray Use 1 [facility] propionate 2-17 } [place] in ity o f 50 00:00: each [place] mcg/actuati 00 nostril 2 Med ical on nasal (two) Branch spray times daily. EPINEPHrine 2018-05 Yes [id number] .3mg 0.3 mL by [facility] (EPIPEN 2-17 Intramuscu ity of 2-JOVI) 0.3 00:00: lar route [place] mg/0.3 mL 00 as needed Medic al injection (anaphylax Bran ch is). albuterol 2018-05 Yes [id number] 2{puff} Inhale 2 [facility] (PROAIR 2-17 Puffs ity of HFA) 90 00:00: every 6 [place] mcg/actuati 00 (six) Medical on inhaler hours as Branc h needed for Wheezing, Shortness of Breath or Chest tightness. budesonide- 2018-05 Yes [id number] 2{puff} Inhale 2 [facility] formoterol 2-17 Puffs 2 ity of 80-4.5 00:00: (two) [place] mcg/actuati 00 times Medical on inhaler daily. Branch fluticasone 2018-05 Yes [id number] 1{spray Use 1 [facility] propionate 2-17 } [place] in ity o f 50 00:00: each [place] mcg/actuati 00 nostril 2 Med ical on nasal (two) Branch spray times daily. EPINEPHrine 2018-05 Yes [id number] .3mg 0.3 mL by [facility] (EPIPEN 2-17 Intramuscu ity of 2-JOVI) 0.3 00:00: lar route [place] mg/0.3 mL 00 as needed Medic al injection (anaphylax Bran ch is). albuterol 2018-05 Yes [id number] 2{puff} Inhale 2 [facility] (PROAIR 2-17 Puffs ity of HFA) 90 00:00: every 6 [place] mcg/actuati 00 (six) Medical on inhaler hours as Branc h needed for Wheezing, Shortness of Breath or Chest tightness. budesonide- 2018-05 Yes [id number] 2{puff} Inhale 2 [facility] formoterol 2-17 Puffs 2 ity of 80-4.5 00:00: (two) [place] mcg/actuati 00 times Medical on inhaler daily. Branch fluticasone 2018-05 Yes [id number] 1{spray Use 1 [facility] propionate 2-17 } [place] in ity o f 50 00:00: each [place] mcg/actuati 00 nostril 2 Med ical on nasal (two) Branch spray times daily. EPINEPHrine 2018-05 Yes [id number] .3mg 0.3 mL by [facility] (EPIPEN 2-17 Intramuscu ity of 2-JOVI) 0.3 00:00: lar route [place] mg/0.3 mL 00 as needed Medic al injection (anaphylax Bran ch is). albuterol 2018-05 Yes [id number] 2{puff} Inhale 2 [facility] (PROAIR 2-17 Puffs ity of HFA) 90 00:00: every 6 [place] mcg/actuati 00 (six) Medical on inhaler hours as Branc h needed for Wheezing, Shortness of Breath or Chest tightness. budesonide- 2018-05 Yes [id number] 2{puff} Inhale 2 [facility] formoterol 2-17 Puffs 2 ity of 80-4.5 00:00: (two) [place] mcg/actuati 00 times Medical on inhaler daily. Branch fluticasone 2018-05 Yes [id number] 1{spray Use 1 [facility] propionate 2-17 } [place] in ity o f 50 00:00: each [place] mcg/actuati 00 nostril 2 Med ical on nasal (two) Branch spray times daily. EPINEPHrine 2018-05 Yes [id number] .3mg 0.3 mL by [facility] (EPIPEN 2-17 Intramuscu ity of 2-JOVI) 0.3 00:00: lar route [place] mg/0.3 mL 00 as needed Medic al injection (anaphylax Bran ch is). albuterol 2018-05 Yes [id number] 2{puff} Inhale 2 [facility] (PROAIR 2-17 Puffs ity of HFA) 90 00:00: every 6 [place] mcg/actuati 00 (six) Medical on inhaler hours as Branc h needed for Wheezing, Shortness of Breath or Chest tightness. budesonide- 2018-05 Yes [id number] 2{puff} Inhale 2 [facility] formoterol 2-17 Puffs 2 ity of 80-4.5 00:00: (two) [place] mcg/actuati 00 times Medical on inhaler daily. Branch fluticasone 2018-05 Yes [id number] 1{spray Use 1 [facility] propionate 2-17 } [place] in ity o f 50 00:00: each [place] mcg/actuati 00 nostril 2 Med ical on nasal (two) Branch spray times daily. EPINEPHrine 2018-05 Yes [id number] .3mg 0.3 mL by [facility] (EPIPEN 2-17 Intramuscu ity of 2-JOVI) 0.3 00:00: lar route [place] mg/0.3 mL 00 as needed Medic al injection (anaphylax Bran ch is). albuterol 2018-05 Yes [id number] 2{puff} Inhale 2 [facility] (PROAIR 2-17 Puffs ity of HFA) 90 00:00: every 6 [place] mcg/actuati 00 (six) Medical on inhaler hours as Branc h needed for Wheezing, Shortness of Breath or Chest tightness. budesonide- 2018-05 Yes [id number] 2{puff} Inhale 2 [facility] formoterol 2-17 Puffs 2 ity of 80-4.5 00:00: (two) [place] mcg/actuati 00 times Medical on inhaler daily. Branch fluticasone 2018-05 Yes [id number] 1{spray Use 1 [facility] propionate 2-17 } [place] in ity o f 50 00:00: each [place] mcg/actuati 00 nostril 2 Med ical on nasal (two) Branch spray times daily. EPINEPHrine 2018-05 Yes [id number] .3mg 0.3 mL by [facility] (EPIPEN 2-17 Intramuscu ity of 2-JOVI) 0.3 00:00: lar route [place] mg/0.3 mL 00 as needed Medic al injection (anaphylax Bran ch is). albuterol 2018-05 Yes [id number] 2{puff} Inhale 2 [facility] (PROAIR 2-17 Puffs ity of HFA) 90 00:00: every 6 [place] mcg/actuati 00 (six) Medical on inhaler hours as Branc h needed for Wheezing, Shortness of Breath or Chest tightness. budesonide- 2018-05 Yes [id number] 2{puff} Inhale 2 [facility] formoterol 2-17 Puffs 2 ity of 80-4.5 00:00: (two) [place] mcg/actuati 00 times Medical on inhaler daily. Branch fluticasone 2018-05 Yes [id number] 1{spray Use 1 [facility] propionate 2-17 } [place] in ity o f 50 00:00: each [place] mcg/actuati 00 nostril 2 Med ical on nasal (two) Branch spray times daily. EPINEPHrine 2018-05 Yes [id number] .3mg 0.3 mL by [facility] (EPIPEN 2-17 Intramuscu ity of 2-JOVI) 0.3 00:00: lar route [place] mg/0.3 mL 00 as needed Medic al injection (anaphylax Bran ch is). albuterol 2018-05 Yes [id number] 2{puff} Inhale 2 [facility] (PROAIR 2-17 Puffs ity of HFA) 90 00:00: every 6 [place] mcg/actuati 00 (six) Medical on inhaler hours as Branc h needed for Wheezing, Shortness of Breath or Chest tightness. budesonide- 2018-05 Yes [id number] 2{puff} Inhale 2 [facility] formoterol 2-17 Puffs 2 ity of 80-4.5 00:00: (two) [place] mcg/actuati 00 times Medical on inhaler daily. Branch fluticasone 2018-05 Yes [id number] 1{spray Use 1 [facility] propionate 2-17 } [place] in ity o f 50 00:00: each [place] mcg/actuati 00 nostril 2 Med ical on nasal (two) Branch spray times daily. EPINEPHrine 2018-05 Yes [id number] .3mg 0.3 mL by [facility] (EPIPEN 2-17 Intramuscu ity of 2-JOVI) 0.3 00:00: lar route [place] mg/0.3 mL 00 as needed Medic al injection (anaphylax Bran ch is). albuterol 2018-05 Yes [id number] 2{puff} Inhale 2 [facility] (PROAIR 2-17 Puffs ity of HFA) 90 00:00: every 6 [place] mcg/actuati 00 (six) Medical on inhaler hours as Branc h needed for Wheezing, Shortness of Breath or Chest tightness. budesonide- 2018-05 Yes [id number] 2{puff} Inhale 2 [facility] formoterol 2-17 Puffs 2 ity of 80-4.5 00:00: (two) [place] mcg/actuati 00 times Medical on inhaler daily. Branch fluticasone 2018-05 Yes [id number] 1{spray Use 1 [facility] propionate 2-17 } [place] in ity o f 50 00:00: each [place] mcg/actuati 00 nostril 2 Med ical on nasal (two) Branch spray times daily. EPINEPHrine 2018-05 Yes [id number] .3mg 0.3 mL by [facility] (EPIPEN 2-17 Intramuscu ity of 2-JOVI) 0.3 00:00: lar route [place] mg/0.3 mL 00 as needed Medic al injection (anaphylax Bran ch is). albuterol 2018-05 Yes [id number] 2{puff} Inhale 2 [facility] (PROAIR 2-17 Puffs ity of HFA) 90 00:00: every 6 [place] mcg/actuati 00 (six) Medical on inhaler hours as Branc h needed for Wheezing, Shortness of Breath or Chest tightness. budesonide- 2018-05 Yes [id number] 2{puff} Inhale 2 [facility] formoterol 2-17 Puffs 2 ity of 80-4.5 00:00: (two) [place] mcg/actuati 00 times Medical on inhaler daily. Branch fluticasone 2018-05 Yes [id number] 1{spray Use 1 [facility] propionate 2-17 } [place] in ity o f 50 00:00: each [place] mcg/actuati 00 nostril 2 Med ical on nasal (two) Branch spray times daily. EPINEPHrine 2018-05 Yes [id number] .3mg 0.3 mL by [facility] (EPIPEN 2-17 Intramuscu ity of 2-JOVI) 0.3 00:00: lar route [place] mg/0.3 mL 00 as needed Medic al injection (anaphylax Bran ch is). albuterol 2018-05 Yes [id number] 2{puff} Inhale 2 [facility] (PROAIR 2-17 Puffs ity of HFA) 90 00:00: every 6 [place] mcg/actuati 00 (six) Medical on inhaler hours as Branc h needed for Wheezing, Shortness of Breath or Chest tightness. budesonide- 2018-05 Yes [id number] 2{puff} Inhale 2 [facility] formoterol 2-17 Puffs 2 ity of 80-4.5 00:00: (two) [place] mcg/actuati 00 times Medical on inhaler daily. Branch fluticasone 2018-05 Yes [id number] 1{spray Use 1 [facility] propionate 2-17 } [place] in ity o f 50 00:00: each [place] mcg/actuati 00 nostril 2 Med ical on nasal (two) Branch spray times daily. EPINEPHrine 2018-05 Yes [id number] .3mg 0.3 mL by [facility] (EPIPEN 2-17 Intramuscu ity of 2-JOVI) 0.3 00:00: lar route [place] mg/0.3 mL 00 as needed Medic al injection (anaphylax Bran ch is). albuterol 2018-05 Yes [id number] 2{puff} Inhale 2 [facility] (PROAIR 2-17 Puffs ity of HFA) 90 00:00: every 6 [place] mcg/actuati 00 (six) Medical on inhaler hours as Branc h needed for Wheezing, Shortness of Breath or Chest tightness. fluticasone 2018-05 Yes [id number] 1{spray Use 1 [facility] propionate 2-17 } [place] in ity o f 50 00:00: each [place] mcg/actuati 00 nostril 2 Med ical on nasal (two) Branch spray times daily. EPINEPHrine 2018-05 Yes [id number] .3mg 0.3 mL by [facility] (EPIPEN 2-17 Intramuscu ity of 2-JOVI) 0.3 00:00: lar route [place] mg/0.3 mL 00 as needed Medic al injection (anaphylax Bran ch is). albuterol 2018-05 Yes [id number] 2{puff} Inhale 2 [facility] (PROAIR 2-17 Puffs ity of HFA) 90 00:00: every 6 [place] mcg/actuati 00 (six) Medical on inhaler hours as Branc h needed for Wheezing, Shortness of Breath or Chest tightness. fluticasone 2018-05 Yes [id number] 1{spray Use 1 [facility] propionate 2-17 } [place] in ity o f 50 00:00: each [place] mcg/actuati 00 nostril 2 Med ical on nasal (two) Branch spray times daily. EPINEPHrine 2018-05 Yes [id number] .3mg 0.3 mL by [facility] (EPIPEN 2-17 Intramuscu ity of 2-JOVI) 0.3 00:00: lar route [place] mg/0.3 mL 00 as needed Medic al injection (anaphylax Bran ch is). albuterol 2018-05 Yes [id number] 2{puff} Inhale 2 [facility] (PROAIR 2-17 Puffs ity of HFA) 90 00:00: every 6 [place] mcg/actuati 00 (six) Medical on inhaler hours as Branc h needed for Wheezing, Shortness of Breath or Chest tightness. fluticasone 2018-05 Yes [id number] 1{spray Use 1 [facility] propionate 2-17 } [place] in ity o f 50 00:00: each [place] mcg/actuati 00 nostril 2 Med ical on nasal (two) Branch spray times daily. EPINEPHrine 2018-05 Yes [id number] .3mg 0.3 mL by [facility] (EPIPEN 2-17 Intramuscu ity of 2-JOVI) 0.3 00:00: lar route [place] mg/0.3 mL 00 as needed Medic al injection (anaphylax Bran ch is). albuterol 2018-05 Yes [id number] 2{puff} Inhale 2 [facility] (PROAIR 2-17 Puffs ity of HFA) 90 00:00: every 6 [place] mcg/actuati 00 (six) Medical on inhaler hours as Branc h needed for Wheezing, Shortness of Breath or Chest tightness. fluticasone 2018-05 Yes [id number] 1{spray Use 1 [facility] propionate 2-17 } [place] in ity o f 50 00:00: each [place] mcg/actuati 00 nostril 2 Med ical on nasal (two) Branch spray times daily. EPINEPHrine 2018-05 Yes [id number] .3mg 0.3 mL by [facility] (EPIPEN 2-17 Intramuscu ity of 2-JOVI) 0.3 00:00: lar route [place] mg/0.3 mL 00 as needed Medic al injection (anaphylax Bran ch is). albuterol 2018-05 Yes [id number] 2{puff} Inhale 2 [facility] (PROAIR 2-17 Puffs ity of HFA) 90 00:00: every 6 [place] mcg/actuati 00 (six) Medical on inhaler hours as Branc h needed for Wheezing, Shortness of Breath or Chest tightness. fluticasone 2018-05 Yes [id number] 1{spray Use 1 [facility] propionate 2-17 } [place] in ity o f 50 00:00: each [place] mcg/actuati 00 nostril 2 Med ical on nasal (two) Branch spray times daily. EPINEPHrine 2018-05 Yes [id number] .3mg 0.3 mL by [facility] (EPIPEN 2-17 Intramuscu ity of 2-JOVI) 0.3 00:00: lar route [place] mg/0.3 mL 00 as needed Medic al injection (anaphylax Bran ch is). albuterol 2018-05 Yes [id number] 2{puff} Inhale 2 [facility] (PROAIR 2-17 Puffs ity of HFA) 90 00:00: every 6 [place] mcg/actuati 00 (six) Medical on inhaler hours as Branc h needed for Wheezing, Shortness of Breath or Chest tightness. fluticasone 2018-05 Yes [id number] 1{spray Use 1 [facility] propionate 2-17 } [place] in ity o f 50 00:00: each [place] mcg/actuati 00 nostril 2 Med ical on nasal (two) Branch spray times daily. EPINEPHrine 2018-05 Yes [id number] .3mg 0.3 mL by [facility] (EPIPEN 2-17 Intramuscu ity of 2-JOVI) 0.3 00:00: lar route [place] mg/0.3 mL 00 as needed Medic al injection (anaphylax Bran ch is). albuterol 2018-05 Yes [id number] 2{puff} Inhale 2 [facility] (PROAIR 2-17 Puffs ity of HFA) 90 00:00: every 6 [place] mcg/actuati 00 (six) Medical on inhaler hours as Branc h needed for Wheezing, Shortness of Breath or Chest tightness. fluticasone 2018-05 Yes [id number] 1{spray Use 1 [facility] propionate 2-17 } [place] in ity o f 50 00:00: each [place] mcg/actuati 00 nostril 2 Med ical on nasal (two) Branch spray times daily. EPINEPHrine 2018-05 Yes [id number] .3mg 0.3 mL by [facility] (EPIPEN 2-17 Intramuscu ity of 2-JOVI) 0.3 00:00: lar route [place] mg/0.3 mL 00 as needed Medic al injection (anaphylax Bran ch is). albuterol 2018-05 Yes [id number] 2{puff} Inhale 2 [facility] (PROAIR 2-17 Puffs ity of HFA) 90 00:00: every 6 [place] mcg/actuati 00 (six) Medical on inhaler hours as Branc h needed for Wheezing, Shortness of Breath or Chest tightness. fluticasone 2018-05 Yes [id number] 1{spray Use 1 [facility] propionate 2-17 } [place] in ity o f 50 00:00: each [place] mcg/actuati 00 nostril 2 Med ical on nasal (two) Branch spray times daily. EPINEPHrine 2018-05 Yes [id number] .3mg 0.3 mL by [facility] (EPIPEN 2-17 Intramuscu ity of 2-JOVI) 0.3 00:00: lar route [place] mg/0.3 mL 00 as needed Medic al injection (anaphylax Bran ch is). albuterol 2018-05 Yes [id number] 2{puff} Inhale 2 [facility] (PROAIR 2-17 Puffs ity of HFA) 90 00:00: every 6 [place] mcg/actuati 00 (six) Medical on inhaler hours as Branc h needed for Wheezing, Shortness of Breath or Chest tightness. fluticasone 2018-05 Yes [id number] 1{spray Use 1 [facility] propionate 2-17 } [place] in ity o f 50 00:00: each [place] mcg/actuati 00 nostril 2 Med ical on nasal (two) Branch spray times daily. EPINEPHrine 2018-05 Yes [id number] .3mg 0.3 mL by [facility] (EPIPEN 2-17 Intramuscu ity of 2-JOVI) 0.3 00:00: lar route [place] mg/0.3 mL 00 as needed Medic al injection (anaphylax Bran ch is). albuterol 2018-05 Yes [id number] 2{puff} Inhale 2 [facility] (PROAIR 2-17 Puffs ity of HFA) 90 00:00: every 6 [place] mcg/actuati 00 (six) Medical on inhaler hours as Branc h needed for Wheezing, Shortness of Breath or Chest tightness. fluticasone 2018-05 Yes [id number] 1{spray Use 1 [facility] propionate 2-17 } [place] in ity o f 50 00:00: each [place] mcg/actuati 00 nostril 2 Med ical on nasal (two) Branch spray times daily. EPINEPHrine 2018-05 Yes [id number] .3mg 0.3 mL by [facility] (EPIPEN 2-17 Intramuscu ity of 2-JOVI) 0.3 00:00: lar route [place] mg/0.3 mL 00 as needed Medic al injection (anaphylax Bran ch is). albuterol 2018-05 Yes [id number] 2{puff} Inhale 2 [facility] (PROAIR 2-17 Puffs ity of HFA) 90 00:00: every 6 [place] mcg/actuati 00 (six) Medical on inhaler hours as Branc h needed for Wheezing, Shortness of Breath or Chest tightness. fluticasone 2018-05 Yes [id number] 1{spray Use 1 [facility] propionate 2-17 } [place] in ity o f 50 00:00: each [place] mcg/actuati 00 nostril 2 Med ical on nasal (two) Branch spray times daily. EPINEPHrine 2018-05 Yes [id number] .3mg 0.3 mL by [facility] (EPIPEN 2-17 Intramuscu ity of 2-JOVI) 0.3 00:00: lar route [place] mg/0.3 mL 00 as needed Medic al injection (anaphylax Bran ch is). albuterol 2018-05 Yes [id number] 2{puff} Inhale 2 [facility] (PROAIR 2-17 Puffs ity of HFA) 90 00:00: every 6 [place] mcg/actuati 00 (six) Medical on inhaler hours as Branc h needed for Wheezing, Shortness of Breath or Chest tightness. fluticasone 2018-05 Yes [id number] 1{spray Use 1 [facility] propionate 2-17 } [place] in ity o f 50 00:00: each [place] mcg/actuati 00 nostril 2 Med ical on nasal (two) Branch spray times daily. EPINEPHrine 2018-05 Yes [id number] .3mg 0.3 mL by [facility] (EPIPEN 2-17 Intramuscu ity of 2-JOVI) 0.3 00:00: lar route [place] mg/0.3 mL 00 as needed Medic al injection (anaphylax Bran ch is). albuterol 2018-05 Yes [id number] 2{puff} Inhale 2 [facility] (PROAIR 2-17 Puffs ity of HFA) 90 00:00: every 6 [place] mcg/actuati 00 (six) Medical on inhaler hours as Branc h needed for Wheezing, Shortness of Breath or Chest tightness. fluticasone 2018-05 Yes [id number] 1{spray Use 1 [facility] propionate 2-17 } [place] in ity o f 50 00:00: each [place] mcg/actuati 00 nostril 2 Med ical on nasal (two) Branch spray times daily. EPINEPHrine 2018-05 Yes [id number] .3mg 0.3 mL by [facility] (EPIPEN 2-17 Intramuscu ity of 2-JOVI) 0.3 00:00: lar route [place] mg/0.3 mL 00 as needed Medic al injection (anaphylax Bran ch is). albuterol 2018-05 Yes [id number] 2{puff} Inhale 2 [facility] (PROAIR 2-17 Puffs ity of HFA) 90 00:00: every 6 [place] mcg/actuati 00 (six) Medical on inhaler hours as Branc h needed for Wheezing, Shortness of Breath or Chest tightness. fluticasone 2018-05 Yes [id number] 1{spray Use 1 [facility] propionate 2-17 } [place] in ity o f 50 00:00: each [place] mcg/actuati 00 nostril 2 Med ical on nasal (two) Branch spray times daily. EPINEPHrine 2018-05 Yes [id number] .3mg 0.3 mL by [facility] (EPIPEN 2-17 Intramuscu ity of 2-JOVI) 0.3 00:00: lar route [place] mg/0.3 mL 00 as needed Medic al injection (anaphylax Bran ch is). albuterol 2018-05 Yes [id number] 2{puff} Inhale 2 [facility] (PROAIR 2-17 Puffs ity of HFA) 90 00:00: every 6 [place] mcg/actuati 00 (six) Medical on inhaler hours as Branc h needed for Wheezing, Shortness of Breath or Chest tightness. fluticasone 2018-05 Yes [id number] 1{spray Use 1 [facility] propionate 2-17 } [place] in ity o f 50 00:00: each [place] mcg/actuati 00 nostril 2 Med ical on nasal (two) Branch spray times daily. EPINEPHrine 2018-05 Yes [id number] .3mg 0.3 mL by [facility] (EPIPEN 2-17 Intramuscu ity of 2-JOVI) 0.3 00:00: lar route [place] mg/0.3 mL 00 as needed Medic al injection (anaphylax Bran ch is). budesonide- 2018-05 2020- No [id number] 2{puff} Inhale 2 [facility] formoterol 2-17 03-27 Puffs 2 ity o f 80-4.5 00:00: 00:00 (two) [place] mcg/actuati 00 :00 times Medical on inhaler daily. Branch budesonide- 2018-05 2020- No [id number] 2{puff} Inhale 2 [facility] formoterol 2-17 03-27 Puffs 2 ity o f 80-4.5 00:00: 00:00 (two) [place] mcg/actuati 00 :00 times Medical on inhaler daily. Branch tamsulosin 2018-05 Yes [id number] .4mg Take 1 [facility] 0.4 mg 24 2-11 capsule by ity of hr capsule 00:00: mouth [place] 00 daily. Medical Branch tamsulosin 2018-05 Yes [id number] .4mg Take 1 [facility] 0.4 mg 24 2-11 capsule by ity of hr capsule 00:00: mouth [place] 00 daily. Medical Branch SERTraline 2018-05 Yes [id number] 100mg Take 1 [facility] 100 mg 2-11 tablet by ity of tablet 00:00: mouth [place] 00 daily. Medical Branch tamsulosin 2018-05 Yes [id number] .4mg Take 1 [facility] 0.4 mg 24 2-11 capsule by ity of hr capsule 00:00: mouth [place] 00 daily. Medical Branch SERTraline 2018-05 Yes [id number] 100mg Take 1 [facility] 100 mg 2-11 tablet by ity of tablet 00:00: mouth [place] 00 daily. Medical Branch tamsulosin 2018-05 Yes [id number] .4mg Take 1 [facility] 0.4 mg 24 2-11 capsule by ity of hr capsule 00:00: mouth [place] 00 daily. Medical Branch SERTraline 2018-05 Yes [id number] 100mg Take 1 [facility] 100 mg 2-11 tablet by ity of tablet 00:00: mouth [place] 00 daily. Medical Branch tamsulosin 2018-05 Yes [id number] .4mg Take 1 [facility] 0.4 mg 24 2-11 capsule by ity of hr capsule 00:00: mouth [place] 00 daily. Medical Branch SERTraline 2018-05 Yes [id number] 100mg Take 1 [facility] 100 mg 2-11 tablet by ity of tablet 00:00: mouth [place] 00 daily. Medical Branch tamsulosin 2018-05 Yes [id number] .4mg Take 1 [facility] 0.4 mg 24 2-11 capsule by ity of hr capsule 00:00: mouth [place] 00 daily. Medical Branch tamsulosin 2018-05 Yes [id number] .4mg Take 1 [facility] 0.4 mg 24 2-11 capsule by ity of hr capsule 00:00: mouth [place] 00 daily. Medical Branch tamsulosin 2018-05 Yes [id number] .4mg Take 1 [facility] 0.4 mg 24 2-11 capsule by ity of hr capsule 00:00: mouth [place] 00 daily. Medical Branch tamsulosin 2018-05 Yes [id number] .4mg Take 1 [facility] 0.4 mg 24 2-11 capsule by ity of hr capsule 00:00: mouth [place] 00 daily. Medical Branch tamsulosin 2018-05 Yes [id number] .4mg Take 1 [facility] 0.4 mg 24 2-11 capsule by ity of hr capsule 00:00: mouth [place] 00 daily. Medical Branch tamsulosin 2018-05 Yes [id number] .4mg Take 1 [facility] 0.4 mg 24 2-11 capsule by ity of hr capsule 00:00: mouth [place] 00 daily. Medical Branch tamsulosin 2018-05 Yes [id number] .4mg Take 1 [facility] 0.4 mg 24 2-11 capsule by ity of hr capsule 00:00: mouth [place] 00 daily. Medical Branch tamsulosin 2018-05 Yes [id number] .4mg Take 1 [facility] 0.4 mg 24 2-11 capsule by ity of hr capsule 00:00: mouth [place] 00 daily. Medical Branch tamsulosin 2018-05 Yes [id number] .4mg Take 1 [facility] 0.4 mg 24 2-11 capsule by ity of hr capsule 00:00: mouth [place] 00 daily. Medical Branch tamsulosin 2018-05 Yes [id number] .4mg Take 1 [facility] 0.4 mg 24 2-11 capsule by ity of hr capsule 00:00: mouth [place] 00 daily. Medical Branch tamsulosin 2018-05 Yes [id number] .4mg Take 1 [facility] 0.4 mg 24 2-11 capsule by ity of hr capsule 00:00: mouth [place] 00 daily. Medical Branch tamsulosin 2018-05 Yes [id number] .4mg Take 1 [facility] 0.4 mg 24 2-11 capsule by ity of hr capsule 00:00: mouth [place] 00 daily. Medical Branch tamsulosin 2018-05 Yes [id number] .4mg Take 1 [facility] 0.4 mg 24 2-11 capsule by ity of hr capsule 00:00: mouth [place] 00 daily. Medical Branch tamsulosin 2018-05 Yes [id number] .4mg Take 1 [facility] 0.4 mg 24 2-11 capsule by ity of hr capsule 00:00: mouth [place] 00 daily. Medical Branch tamsulosin 2018-05 Yes [id number] .4mg Take 1 [facility] 0.4 mg 24 2-11 capsule by ity of hr capsule 00:00: mouth [place] 00 daily. Medical Branch tamsulosin 2018-05 Yes [id number] .4mg Take 1 [facility] 0.4 mg 24 2-11 capsule by ity of hr capsule 00:00: mouth [place] 00 daily. Medical Branch tamsulosin 2018-05 Yes [id number] .4mg Take 1 [facility] 0.4 mg 24 2-11 capsule by ity of hr capsule 00:00: mouth [place] 00 daily. Medical Branch tamsulosin 2018-05 Yes [id number] .4mg Take 1 [facility] 0.4 mg 24 2-11 capsule by ity of hr capsule 00:00: mouth [place] 00 daily. Medical Branch tamsulosin 2018-05 Yes [id number] .4mg Take 1 [facility] 0.4 mg 24 2-11 capsule by ity of hr capsule 00:00: mouth [place] 00 daily. Medical Branch tamsulosin 2018-05 Yes [id number] .4mg Take 1 [facility] 0.4 mg 24 2-11 capsule by ity of hr capsule 00:00: mouth [place] 00 daily. Medical Branch tamsulosin 2018-05 Yes [id number] .4mg Take 1 [facility] 0.4 mg 24 2-11 capsule by ity of hr capsule 00:00: mouth [place] 00 daily. Medical Branch tamsulosin 2018-05 Yes [id number] .4mg Take 1 [facility] 0.4 mg 24 2-11 capsule by ity of hr capsule 00:00: mouth [place] 00 daily. Medical Branch tamsulosin 2018-05 Yes [id number] .4mg Take 1 [facility] 0.4 mg 24 2-11 capsule by ity of hr capsule 00:00: mouth [place] 00 daily. Medical Branch SERTraline 2018-05 2020- No [id number] 100mg Take 1 [facility] 100 mg 2-11 03-23 tablet by ity of tablet 00:00: 00:00 mouth [place] 00 :00 daily. Medical Branch hydrOXYzine Yes [id number] 50mg Take 1 [facility] 50 mg 9-19 tablet by ity of tablet 00:00: mouth 3 00 (three) Medical times Branch daily as needed for Anxiety. hydrOXYzine Yes [id number] 50mg Take 1 [facility] 50 mg 9-19 tablet by ity of tablet 00:00: mouth 3 (three) Medical times Branch daily as needed for Anxiety. hydrOXYzine Yes [id number] 50mg Take 1 [facility] 50 mg 9-19 tablet by ity of tablet 00:00: mouth 3 [place] 00 (three) Medical times Branch daily as needed for Anxiety. hydrOXYzine Yes [id number] 50mg Take 1 [facility] 50 mg 9-19 tablet by ity of tablet 00:00: mouth 3 (three) Medical times Branch daily as needed for Anxiety. hydrOXYzine 2019-0 Yes [id number] 50mg Take 1 [facility] 50 mg 9-19 tablet by ity of tablet 00:00: mouth 3 (three) Medical times Branch daily as needed for Anxiety. hydrOXYzine 2019-0 Yes [id number] 50mg Take 1 [facility] 50 mg 9-19 tablet by ity of tablet 00:00: mouth 3 (three) Medical times Branch daily as needed for Anxiety. hydrOXYzine 2019-0 Yes [id number] 50mg Take 1 [facility] 50 mg 9-19 tablet by ity of tablet 00:00: mouth 3 (three) Medical times Branch daily as needed for Anxiety. hydrOXYzine 2019-0 Yes [id number] 50mg Take 1 [facility] 50 mg 9-19 tablet by ity of tablet 00:00: mouth (three) Medical times Branch daily as needed for Anxiety. hydrOXYzine 2019-0 Yes [id number] 50mg Take 1 [facility] 50 mg 9-19 tablet by ity of tablet 00:00: mouth (three) Medical times Branch daily as needed for Anxiety. hydrOXYzine 2019-0 Yes [id number] 50mg Take 1 [facility] 50 mg 9-19 tablet by ity of tablet 00:00: mouth (three) Medical times Branch daily as needed for Anxiety. hydrOXYzine 2019-0 Yes [id number] 50mg Take 1 [facility] 50 mg 9-19 tablet by ity of tablet 00:00: mouth (three) Medical times Branch daily as needed for Anxiety. hydrOXYzine 2019-0 Yes [id number] 50mg Take 1 [facility] 50 mg 9-19 tablet by ity of tablet 00:00: mouth (three) Medical times Branch daily as needed for Anxiety. hydrOXYzine 2019-0 Yes [id number] 50mg Take 1 [facility] 50 mg 9-19 tablet by ity of tablet 00:00: mouth 3 (three) Medical times Branch daily as needed for Anxiety. hydrOXYzine 2019-0 Yes [id number] 50mg Take 1 [facility] 50 mg 9-19 tablet by ity of tablet 00:00: mouth 3 (three) Medical times Branch daily as needed for Anxiety. hydrOXYzine 2019-0 Yes [id number] 50mg Take 1 [facility] 50 mg 9-19 tablet by ity of tablet 00:00: mouth 3 (three) Medical times Branch daily as needed for Anxiety. hydrOXYzine 2019-0 Yes [id number] 50mg Take 1 [facility] 50 mg 9-19 tablet by ity of tablet 00:00: mouth 3 (three) Medical times Branch daily as needed for Anxiety. hydrOXYzine 2019-0 Yes [id number] 50mg Take 1 [facility] 50 mg 9-19 tablet by ity of tablet 00:00: mouth 3 (three) Medical times Branch daily as needed for Anxiety. hydrOXYzine 2019-0 Yes [id number] 50mg Take 1 [facility] 50 mg 9-19 tablet by ity of tablet 00:00: mouth 3 (three) Medical times Branch daily as needed for Anxiety. hydrOXYzine 2018-0 Yes [id number] 50mg Take 1 [facility] 50 mg 9-19 tablet by ity of tablet 00:00: mouth 3 (three) Medical times Branch daily as needed for Anxiety. hydrOXYzine 2018-0 Yes [id number] 50mg Take 1 [facility] 50 mg 9-19 tablet by ity of tablet 00:00: mouth 3 (three) Medical times Branch daily as needed for Anxiety. hydrOXYzine 2018-0 Yes [id number] 50mg Take 1 [facility] 50 mg 9-19 tablet by ity of tablet 00:00: mouth 3 (three) Medical times Branch daily as needed for Anxiety. hydrOXYzine 2019-0 Yes [id number] 50mg Take 1 [facility] 50 mg 9-19 tablet by ity of tablet 00:00: mouth 3 (three) Medical times Branch daily as needed for Anxiety. hydrOXYzine 2019-0 Yes [id number] 50mg Take 1 [facility] 50 mg 9-19 tablet by ity of tablet 00:00: mouth 3 (three) Medical times Branch daily as needed for Anxiety. hydrOXYzine 2019-0 Yes [id number] 50mg Take 1 [facility] 50 mg 9-19 tablet by ity of tablet 00:00: mouth 3 (three) Medical times Branch daily as needed for Anxiety. hydrOXYzine 2019-0 Yes [id number] 50mg Take 1 [facility] 50 mg 9-19 tablet by ity of tablet 00:00: mouth 3 (three) Medical times Branch daily as needed for Anxiety. hydrOXYzine 2020- No [id number] 50mg Take 1 [facility] 50 mg 9-19 11-23 tablet by ity of tablet 00:00: 00:00 mouth 3 [place] 00 :00 (three) Medical times Branch daily as needed for Anxiety. esomeprazol 2019-0 2019- No 40mg Take 40 mg [facility] e 40 mg 8-20 08-20 by mouth. ity of capsule 21:02: 00:00 [place] 40 :00 Medical Branch esomeprazol 2019-0 2019- No 40mg Take 40 mg [facility] e 40 mg 8-20 08-20 by mouth. ity of capsule 21:02: 00:00 40 :00 Medical Branch clopidogrel 2019-0 Yes 75mg Take 75 mg [facility] (PLAVIX) 75 8-20 by mouth ity of mg tablet 20:08: daily. Medical Branch ondansetron 2019-0 Yes 4mg Take 4 mg [facility] n[facility] (ZOFRAN) 4 8-20 by mouth 2 ity of mg tablet 20:08: (two) times Medical daily as Branch needed for Nausea and Vomiting (N/V). cyclobenzap 2019-0 Yes 10mg Take 10 mg [facility] rine 10 mg 8-20 by mouth 3 ity of tablet 20:08: (three) times Medical daily as Branch needed for Muscle Spasms. HYDROmorpho 2019-0 Yes 4mg Take 4 mg [facility] nivers ne 4 mg 8-20 by mouth 2 ity of tablet 20:08: (two) times Medical daily as Branch needed. clopidogrel 2019-0 Yes 75mg Take 75 mg [facility] (PLAVIX) 75 8-20 by mouth ity of mg tablet 20:08: daily. [address] [place] [address] Branch ondansetron 2019-0 Yes 4mg Take 4 mg U nivers (ZOFRAN) 4 8-20 by mouth 2 ity of mg tablet 20:08: (two) times Medical daily as Branch needed for Nausea and Vomiting (N/V). cyclobenzap 2019-0 Yes 10mg Take 10 mg [facility] rine 10 mg 8-20 by mouth 3 ity of tablet 20:08: (three) times Medical daily as Branch needed for Muscle Spasms. HYDROmorpho 2019-0 Yes 4mg Take 4 mg U nivers ne 4 mg 8-20 by mouth 2 ity of tablet 20:08: (two) [place] [id number] times Medical daily as Branch needed. clopidogrel 2019-0 Yes 75mg Take 75 mg [facility] (PLAVIX) 75 8-20 by mouth ity of mg tablet 20:08: daily. [place] [facility] ondansetron 2019-0 Yes 4mg Take 4 mg U nivers (ZOFRAN) 4 8-20 by mouth 2 ity of mg tablet 20:08: (two) [place] 07 times Medical daily as Branch needed for Nausea and Vomiting (N/V). cyclobenzap 2019-0 Yes 10mg Take 10 mg [facility] rine 10 mg 8-20 by mouth 3 ity of tablet 20:08: (three) [place] 07 times Medical daily as Branch needed for Muscle Spasms. HYDROmorpho 2019-0 Yes 4mg Take 4 mg U nivers ne 4 mg 8-20 by mouth 2 ity of tablet 20:08: (two) [place] 07 times Medical daily as Branch needed. ondansetron 2019-0 Yes 4mg Take 4 mg U nivers (ZOFRAN) 4 8-20 by mouth 2 ity of mg tablet 20:08: (two) [place] 07 times Medical daily as Branch needed for Nausea and Vomiting (N/V). cyclobenzap 2019-0 Yes 10mg Take 10 mg [facility] rine 10 mg 8-20 by mouth 3 ity of tablet 20:08: (three) [place] 07 times Medical daily as Branch needed for Muscle Spasms. HYDROmorpho 2019-0 Yes 4mg Take 4 mg U nivers ne 4 mg 8-20 by mouth 2 ity of tablet 20:08: (two) [place] 07 times Medical daily as Branch needed. ondansetron 2019-0 Yes 4mg Take 4 mg [facility] nivers (ZOFRAN) 4 8-20 by mouth 2 ity of mg tablet 20:08: (two) [place] 07 times Medical daily as Branch needed for Nausea and Vomiting (N/V). cyclobenzap 2019-0 Yes 10mg Take 10 mg [facility] rine 10 mg 8-20 by mouth 3 ity of tablet 20:08: (three) [place] 07 times Medical daily as Branch needed for Muscle Spasms. HYDROmorpho 2019-0 Yes 4mg Take 4 mg U nivers ne 4 mg 8-20 by mouth 2 ity of tablet 20:08: (two) [place] 07 times Medical daily as Branch needed. ondansetron 2019-0 Yes 4mg Take 4 mg [facility] nivers (ZOFRAN) 4 8-20 by mouth 2 ity of mg tablet 20:08: (two) [place] 07 times Medical daily as Branch needed for Nausea and Vomiting (N/V). cyclobenzap 2019-0 Yes 10mg Take 10 mg [facility] rine 10 mg 8-20 by mouth 3 ity of tablet 20:08: (three) [place] 07 times Medical daily as Branch needed for Muscle Spasms. HYDROmorpho 2019-0 Yes 4mg Take 4 mg U nivers ne 4 mg 8-20 by mouth 2 ity of tablet 20:08: (two) [place] 07 times Medical daily as Branch needed. ondansetron 2019-0 Yes 4mg Take 4 mg [facility] nivers (ZOFRAN) 4 8-20 by mouth 2 ity of mg tablet 20:08: (two) [place] 07 times Medical daily as Branch needed for Nausea and Vomiting (N/V). cyclobenzap 2019-0 Yes 10mg Take 10 mg [facility] rine 10 mg 8-20 by mouth 3 ity of tablet 20:08: (three) [place] 07 times Medical daily as Branch needed for Muscle Spasms. HYDROmorpho 2019-0 Yes 4mg Take 4 mg [facility] nivers ne 4 mg 8-20 by mouth 2 ity of tablet 20:08: (two) [place] 07 times Medical daily as Branch needed. ondansetron 2019-0 Yes 4mg Take 4 mg U nivers (ZOFRAN) 4 8-20 by mouth 2 ity of mg tablet 20:08: (two) [place] 07 times Medical daily as Branch needed for Nausea and Vomiting (N/V). cyclobenzap 2019-0 Yes 10mg Take 10 mg [facility] rine 10 mg 8-20 by mouth 3 ity of tablet 20:08: (three) [place] 07 times Medical daily as Branch needed for Muscle Spasms. HYDROmorpho 2019-0 Yes 4mg Take 4 mg U nivers ne 4 mg 8-20 by mouth 2 ity of tablet 20:08: (two) [place] 07 times Medical daily as Branch needed. ondansetron 2019-0 Yes 4mg Take 4 mg [facility] nivers (ZOFRAN) 4 8-20 by mouth 2 ity of mg tablet 20:08: (two) [place] 07 times Medical daily as Branch needed for Nausea and Vomiting (N/V). cyclobenzap 2019-0 Yes 10mg Take 10 mg [facility] rine 10 mg 8-20 by mouth 3 ity of tablet 20:08: (three) [place] 07 times Medical daily as Branch needed for Muscle Spasms. HYDROmorpho 2019-0 Yes 4mg Take 4 mg U nivers ne 4 mg 8-20 by mouth 2 ity of tablet 20:08: (two) [place] 07 times Medical daily as Branch needed. ondansetron 2019-0 Yes 4mg Take 4 mg [facility] nivers (ZOFRAN) 4 8-20 by mouth 2 ity of mg tablet 20:08: (two) [place] 07 times Medical daily as Branch needed for Nausea and Vomiting (N/V). cyclobenzap 2019-0 Yes 10mg Take 10 mg [facility] rine 10 mg 8-20 by mouth 3 ity of tablet 20:08: (three) [place] 07 times Medical daily as Branch needed for Muscle Spasms. HYDROmorpho 2019-0 Yes 4mg Take 4 mg U nivers ne 4 mg 8-20 by mouth 2 ity of tablet 20:08: (two) [place] 07 times Medical daily as Branch needed. ondansetron 2019-0 Yes 4mg Take 4 mg [facility] nivers (ZOFRAN) 4 8-20 by mouth 2 ity of mg tablet 20:08: (two) [place] 07 times Medical daily as Branch needed for Nausea and Vomiting (N/V). cyclobenzap 2019-0 Yes 10mg Take 10 mg [facility] rine 10 mg 8-20 by mouth 3 ity of tablet 20:08: (three) [place] 07 times Medical daily as Branch needed for Muscle Spasms. HYDROmorpho 2019-0 Yes 4mg Take 4 mg [facility] nivers ne 4 mg 8-20 by mouth 2 ity of tablet 20:08: (two) [place] 07 times Medical daily as Branch needed. ondansetron 2019-0 Yes 4mg Take 4 mg [facility] nivers (ZOFRAN) 4 8-20 by mouth 2 ity of mg tablet 20:08: (two) [place] 07 times Medical daily as Branch needed for Nausea and Vomiting (N/V). cyclobenzap 2019-0 Yes 10mg Take 10 mg [facility] rine 10 mg 8-20 by mouth 3 ity of tablet 20:08: (three) [place] 07 times Medical daily as Branch needed for Muscle Spasms. HYDROmorpho 2019-0 Yes 4mg Take 4 mg [facility] nivers ne 4 mg 8-20 by mouth 2 ity of tablet 20:08: (two) [place] 07 times Medical daily as Branch needed. ondansetron 2019-0 Yes 4mg Take 4 mg [facility] nivers (ZOFRAN) 4 8-20 by mouth 2 ity of mg tablet 20:08: (two) [place] 07 times Medical daily as Branch needed for Nausea and Vomiting (N/V). cyclobenzap 2019-0 Yes 10mg Take 10 mg [facility] rine 10 mg 8-20 by mouth 3 ity of tablet 20:08: (three) [place] 07 times Medical daily as Branch needed for Muscle Spasms. HYDROmorpho 2019-0 Yes 4mg Take 4 mg U nivers ne 4 mg 8-20 by mouth 2 ity of tablet 20:08: (two) [place] 07 times Medical daily as Branch needed. ondansetron 2019-0 Yes 4mg Take 4 mg [facility] nivers (ZOFRAN) 4 8-20 by mouth 2 ity of mg tablet 20:08: (two) [place] 07 times Medical daily as Branch needed for Nausea and Vomiting (N/V). cyclobenzap 2019-0 Yes 10mg Take 10 mg [facility] rine 10 mg 8-20 by mouth 3 ity of tablet 20:08: (three) [place] 07 times Medical daily as Branch needed for Muscle Spasms. HYDROmorpho 2019-0 Yes 4mg Take 4 mg [facility] nivers ne 4 mg 8-20 by mouth 2 ity of tablet 20:08: (two) [place] 07 times Medical daily as Branch needed. ondansetron 2019-0 Yes 4mg Take 4 mg [facility] nivers (ZOFRAN) 4 8-20 by mouth 2 ity of mg tablet 20:08: (two) [place] 07 times Medical daily as Branch needed for Nausea and Vomiting (N/V). cyclobenzap 2019-0 Yes 10mg Take 10 mg [facility] rine 10 mg 8-20 by mouth 3 ity of tablet 20:08: (three) [place] 07 times Medical daily as Branch needed for Muscle Spasms. HYDROmorpho 2019-0 Yes 4mg Take 4 mg [facility] nivers ne 4 mg 8-20 by mouth 2 ity of tablet 20:08: (two) [place] 07 times Medical daily as Branch needed. ondansetron 2019-0 Yes 4mg Take 4 mg [facility] nivers (ZOFRAN) 4 8-20 by mouth 2 ity of mg tablet 20:08: (two) [place] 07 times Medical daily as Branch needed for Nausea and Vomiting (N/V). cyclobenzap 2019-0 Yes 10mg Take 10 mg [facility] rine 10 mg 8-20 by mouth 3 ity of tablet 20:08: (three) [place] 07 times Medical daily as Branch needed for Muscle Spasms. HYDROmorpho 2019-0 Yes 4mg Take 4 mg [facility] nivers ne 4 mg 8-20 by mouth 2 ity of tablet 20:08: (two) [place] 07 times Medical daily as Branch needed. ondansetron 2019-0 Yes 4mg Take 4 mg [facility] nivers (ZOFRAN) 4 8-20 by mouth 2 ity of mg tablet 20:08: (two) [place] 07 times Medical daily as Branch needed for Nausea and Vomiting (N/V). cyclobenzap 2019-0 Yes 10mg Take 10 mg [facility] rine 10 mg 8-20 by mouth 3 ity of tablet 20:08: (three) [place] 07 times Medical daily as Branch needed for Muscle Spasms. HYDROmorpho 2019-0 Yes 4mg Take 4 mg [facility] nivers ne 4 mg 8-20 by mouth 2 ity of tablet 20:08: (two) [place] 07 times Medical daily as Branch needed. ondansetron 2019-0 Yes 4mg Take 4 mg [facility] nivers (ZOFRAN) 4 8-20 by mouth 2 ity of mg tablet 20:08: (two) [place] 07 times Medical daily as Branch needed for Nausea and Vomiting (N/V). cyclobenzap 2019-0 Yes 10mg Take 10 mg [facility] rine 10 mg 8-20 by mouth 3 ity of tablet 20:08: (three) [place] 07 times Medical daily as Branch needed for Muscle Spasms. HYDROmorpho 2019-0 Yes 4mg Take 4 mg [facility] nivers ne 4 mg 8-20 by mouth 2 ity of tablet 20:08: (two) [place] 07 times Medical daily as Branch needed. ondansetron 2019-0 Yes 4mg Take 4 mg [facility] nivers (ZOFRAN) 4 8-20 by mouth 2 ity of mg tablet 20:08: (two) [place] 07 times Medical daily as Branch needed for Nausea and Vomiting (N/V). ondansetron 2019-0 Yes 4mg Take 4 mg [facility] n[facility] (ZOFRAN) 4 8-20 by mouth 2 ity of mg tablet 20:08: (two) [place] 07 times Medical daily as Branch needed for Nausea and Vomiting (N/V). ondansetron 2019-0 Yes 4mg Take 4 mg [facility] nivers (ZOFRAN) 4 8-20 by mouth 2 ity of mg tablet 20:08: (two) [place] 07 times Medical daily as Branch needed for Nausea and Vomiting (N/V). ondansetron 2019-0 Yes 4mg Take 4 mg [facility] nivers (ZOFRAN) 4 8-20 by mouth 2 ity of mg tablet 20:08: (two) [place] 07 times Medical daily as Branch needed for Nausea and Vomiting (N/V). ondansetron 2019-0 Yes 4mg Take 4 mg [facility] nivers (ZOFRAN) 4 8-20 by mouth 2 ity of mg tablet 20:08: (two) [place] 07 times Medical daily as Branch needed for Nausea and Vomiting (N/V). ondansetron 2019-0 Yes 4mg Take 4 mg [facility] nivers (ZOFRAN) 4 8-20 by mouth 2 ity of mg tablet 20:08: (two) [place] 07 times Medical daily as Branch needed for Nausea and Vomiting (N/V). ondansetron 2019-0 Yes 4mg Take 4 mg [facility] (ZOFRAN) 4 8-20 by mouth 2 ity of mg tablet 20:08: (two) [place] 07 times Medical daily as Branch needed for Nausea and Vomiting (N/V). ondansetron 2019-0 Yes 4mg Take 4 mg [facility] (ZOFRAN) 4 8-20 by mouth 2 ity of mg tablet 20:08: (two) [place] 07 times Medical daily as Branch needed for Nausea and Vomiting (N/V). ondansetron 2019-0 Yes 4mg Take 4 mg [facility] (ZOFRAN) 4 8-20 by mouth 2 ity of mg tablet 20:08: (two) [place] 07 times Medical daily as Branch needed for Nausea and Vomiting (N/V). ondansetron 2019-0 Yes 4mg Take 4 mg [facility] (ZOFRAN) 4 8-20 by mouth 2 ity of mg tablet 20:08: (two) [place] 07 times Medical daily as Branch needed for Nausea and Vomiting (N/V). ondansetron 2019-0 Yes 4mg Take 4 mg [facility] (ZOFRAN) 4 8-20 by mouth 2 ity of mg tablet 20:08: (two) [place] 07 times Medical daily as Branch needed for Nausea and Vomiting (N/V). ondansetron 2019-0 Yes 4mg Take 4 mg [facility] (ZOFRAN) 4 8-20 by mouth 2 ity of mg tablet 20:08: (two) [place] 07 times Medical daily as Branch needed for Nausea and Vomiting (N/V). ondansetron 2019-0 Yes 4mg Take 4 mg [facility] (ZOFRAN) 4 8-20 by mouth 2 ity of mg tablet 15:08: (two) [place] 07 times Medical daily as Branch needed for Nausea and Vomiting (N/V). amLODIPine Yes [id number] 10mg Take 1 [facility] 10 mg 8-20 tablet by ity of tablet 00:00: mouth [place] 00 daily. Medical Branch sennosides Yes [id number] 8.6mg Take 1 [facility] (SENOKOT) 8-20 tablet by ity o f 8.6 mg 00:00: mouth [place] tablet 00 daily. Medical Branch amLODIPine Yes [id number] 10mg Take 1 [facility] 10 mg 8-20 tablet by ity of tablet 00:00: mouth [place] 00 daily. Medical Branch hydrOXYzine Yes [id number] 25mg Take 1 [facility] 25 mg 8-20 capsule by ity of capsule 00:00: mouth 3 [place] 00 (three) Medical times Branch daily as needed for Anxiety. esomeprazol 2018- Yes [id number] 40mg Take 40 mg [facility] e 20 mg 8-20 by mouth ity of capsule 00:00: daily [place] 00 before a Medical meal. Branch sennosides Yes [id number] 8.6mg Take 1 [facility] (SENOKOT) 8-20 tablet by ity o f 8.6 mg 00:00: mouth [place] tablet 00 daily. Medical Branch amLODIPine Yes [id number] 10mg Take 1 [facility] 10 mg 8-20 tablet by ity of tablet 00:00: mouth [place] 00 daily. Medical Branch hydrOXYzine Yes [id number] 25mg Take 1 [facility] 25 mg 8-20 capsule by ity of capsule 00:00: mouth 3 [place] 00 (three) Medical times Branch daily as needed for Anxiety. esomeprazol Yes [id number] 40mg Take 40 mg [facility] e 20 mg 8-20 by mouth ity of capsule 00:00: daily [place] 00 before a Medical meal. Branch sennosides Yes [id number] 8.6mg Take 1 [facility] (SENOKOT) 8-20 tablet by ity o f 8.6 mg 00:00: mouth [place] tablet 00 daily. Medical Branch amLODIPine Yes [id number] 10mg Take 1 [facility] 10 mg 8-20 tablet by ity of tablet 00:00: mouth [place] 00 daily. Medical Branch esomeprazol Yes [id number] 40mg Take 40 mg [facility] e 20 mg 8-20 by mouth ity of capsule 00:00: daily [place] 00 before a Medical meal. Branch sennosides Yes [id number] 8.6mg Take 1 [facility] (SENOKOT) 8-20 tablet by ity o f 8.6 mg 00:00: mouth [place] tablet 00 daily. Medical Branch amLODIPine Yes [id number] 10mg Take 1 [facility] 10 mg 8-20 tablet by ity of tablet 00:00: mouth [place] 00 daily. Medical Branch sennosides Yes [id number] 8.6mg Take 1 [facility] (SENOKOT) 8-20 tablet by ity o f 8.6 mg 00:00: mouth [place] tablet 00 daily. Medical Branch amLODIPine Yes [id number] 10mg Take 1 [facility] 10 mg 8-20 tablet by ity of tablet 00:00: mouth [place] 00 daily. Medical Branch sennosides Yes [id number] 8.6mg Take 1 [facility] (SENOKOT) 8-20 tablet by ity o f 8.6 mg 00:00: mouth [place] tablet 00 daily. Medical Branch amLODIPine Yes [id number] 10mg Take 1 [facility] 10 mg 8-20 tablet by ity of tablet 00:00: mouth [place] 00 daily. Medical Branch sennosides Yes [id number] 8.6mg Take 1 [facility] (SENOKOT) 8-20 tablet by ity o f 8.6 mg 00:00: mouth [place] tablet 00 daily. Medical Branch amLODIPine 2019-0 Yes [id number] 10mg Take 1 [facility] 10 mg 8-20 tablet by ity of tablet 00:00: mouth [place] 00 daily. Medical Branch sennosides 0 Yes [id number] 8.6mg Take 1 [facility] (SENOKOT) 8-20 tablet by ity o f 8.6 mg 00:00: mouth [place] tablet 00 daily. Medical Branch amLODIPine 0 Yes [id number] 10mg Take 1 [facility] 10 mg 8-20 tablet by ity of tablet 00:00: mouth [place] 00 daily. Medical Branch sennosides Yes [id number] 8.6mg Take 1 [facility] (SENOKOT) 8-20 tablet by ity o f 8.6 mg 00:00: mouth [place] tablet 00 daily. Medical Branch amLODIPine Yes [id number] 10mg Take 1 [facility] 10 mg 8-20 tablet by ity of tablet 00:00: mouth [place] 00 daily. Medical Branch sennosides Yes [id number] 8.6mg Take 1 [facility] (SENOKOT) 8-20 tablet by ity o f 8.6 mg 00:00: mouth [place] tablet 00 daily. Medical Branch amLODIPine Yes [id number] 10mg Take 1 [facility] 10 mg 8-20 tablet by ity of tablet 00:00: mouth [place] 00 daily. Medical Branch sennosides Yes [id number] 8.6mg Take 1 [facility] (SENOKOT) 8-20 tablet by ity o f 8.6 mg 00:00: mouth [place] tablet 00 daily. Medical Branch amLODIPine 0 Yes [id number] 10mg Take 1 [facility] 10 mg 8-20 tablet by ity of tablet 00:00: mouth [place] 00 daily. Medical Branch sennosides Yes [id number] 8.6mg Take 1 [facility] (SENOKOT) 8-20 tablet by ity o f 8.6 mg 00:00: mouth [place] tablet 00 daily. Medical Branch amLODIPine 0 Yes [id number] 10mg Take 1 [facility] 10 mg 8-20 tablet by ity of tablet 00:00: mouth [place] 00 daily. Medical Branch sennosides 0 Yes [id number] 8.6mg Take 1 [facility] (SENOKOT) 8-20 tablet by ity o f 8.6 mg 00:00: mouth [place] tablet 00 daily. Medical Branch amLODIPine 0 Yes [id number] 10mg Take 1 [facility] 10 mg 8-20 tablet by ity of tablet 00:00: mouth [place] 00 daily. Medical Branch sennosides 0 Yes [id number] 8.6mg Take 1 [facility] (SENOKOT) 8-20 tablet by ity o f 8.6 mg 00:00: mouth [place] tablet 00 daily. Medical Branch amLODIPine Yes [id number] 10mg Take 1 [facility] 10 mg 8-20 tablet by ity of tablet 00:00: mouth [place] 00 daily. Medical Branch sennosides Yes [id number] 8.6mg Take 1 [facility] (SENOKOT) 8-20 tablet by ity o f 8.6 mg 00:00: mouth [place] tablet 00 daily. Medical Branch amLODIPine Yes [id number] 10mg Take 1 [facility] 10 mg 8-20 tablet by ity of tablet 00:00: mouth [place] 00 daily. Medical Branch sennosides Yes [id number] 8.6mg Take 1 [facility] (SENOKOT) 8-20 tablet by ity o f 8.6 mg 00:00: mouth [place] tablet 00 daily. Medical Branch amLODIPine Yes [id number] 10mg Take 1 [facility] 10 mg 8-20 tablet by ity of tablet 00:00: mouth [place] 00 daily. Medical Branch sennosides Yes [id number] 8.6mg Take 1 [facility] (SENOKOT) 8-20 tablet by ity o f 8.6 mg 00:00: mouth [place] tablet 00 daily. Medical Branch amLODIPine 0 Yes [id number] 10mg Take 1 U n[facility] 10 mg 8-20 tablet by ity of tablet 00:00: mouth [place] 00 daily. Medical Branch sennosides 0 Yes [id number] 8.6mg Take 1 [facility] (SENOKOT) 8-20 tablet by ity o f 8.6 mg 00:00: mouth [place] tablet 00 daily. Medical Branch amLODIPine 0 Yes [id number] 10mg Take 1 [facility] 10 mg 8-20 tablet by ity of tablet 00:00: mouth [place] 00 daily. Medical Branch sennosides Yes [id number] 8.6mg Take 1 [facility] (SENOKOT) 8-20 tablet by ity o f 8.6 mg 00:00: mouth [place] tablet 00 daily. Medical Branch amLODIPine Yes [id number] 10mg Take 1 [facility] 10 mg 8-20 tablet by ity of tablet 00:00: mouth [place] 00 daily. Medical Branch sennosides Yes [id number] 8.6mg Take 1 [facility] (SENOKOT) 8-20 tablet by ity o f 8.6 mg 00:00: mouth [place] tablet 00 daily. Medical Branch amLODIPine Yes [id number] 10mg Take 1 [facility] 10 mg 8-20 tablet by ity of tablet 00:00: mouth [place] 00 daily. [facility] Yes [id number] 8.6mg Take 1 [facility] (SENOKOT) 8-20 tablet by ity o f 8.6 mg 00:00: mouth [place] tablet 00 daily. Medical Branch amLODIPine Yes [id number] 10mg Take 1 U nivers 10 mg 8-20 tablet by ity of tablet 00:00: mouth [place] 00 daily. [facility] [id number] 8.6mg Take 1 [facility] (SENOKOT) 8-20 tablet by ity o f 8.6 mg 00:00: mouth [place] tablet 00 daily. Medical Branch amLODIPine Yes [id number] 10mg Take 1 [facility] n[facility] 10 mg 8-20 tablet by ity of tablet 00:00: mouth [place] 00 daily. [facility] [id number] 8.6mg Take 1 [facility] (SENOKOT) 8-20 tablet by ity o f 8.6 mg 00:00: mouth [place] tablet 00 daily. Medical Branch amLODIPine Yes [id number] 10mg Take 1 U nivers 10 mg 8-20 tablet by ity of tablet 00:00: mouth [place] 00 daily. [facility] [id number] 8.6mg Take 1 [facility] (SENOKOT) 8-20 tablet by ity o f 8.6 mg 00:00: mouth [place] tablet 00 daily. Medical Branch amLODIPine Yes [id number] 10mg Take 1 U nivers 10 mg 8-20 tablet by ity of tablet 00:00: mouth [place] 00 daily. [facility] [id number] 8.6mg Take 1 Univers (SENOKOT) 8-20 tablet by ity o f 8.6 mg 00:00: mouth [place] tablet 00 daily. Medical Branch amLODIPine Yes [id number] 10mg Take 1 U nivers 10 mg 8-20 tablet by ity of tablet 00:00: mouth [place] 00 daily. Medical Branch sennosides Yes [id number] 8.6mg Take 1 Univers (SENOKOT) 8-20 tablet by ity o f 8.6 mg 00:00: mouth [place] tablet 00 daily. Medical Branch amLODIPine Yes [id number] 10mg Take 1 U nivers 10 mg 8-20 tablet by ity of tablet 00:00: mouth [place] 00 daily. Medical Branch sennosides Yes [id number] 8.6mg Take 1 [facility] (SENOKOT) 8-20 tablet by ity o f 8.6 mg 00:00: mouth [place] tablet 00 daily. Medical Branch amLODIPine Yes [id number] 10mg Take 1 U nivers 10 mg 8-20 tablet by ity of tablet 00:00: mouth [place] 00 daily. Medical Branch sennosides Yes [id number] 8.6mg Take 1 [facility] (SENOKOT) 8-20 tablet by ity o f 8.6 mg 00:00: mouth [place] tablet 00 daily. Medical Branch amLODIPine Yes [id number] 10mg Take 1 U nivers 10 mg 8-20 tablet by ity of tablet 00:00: mouth [place] 00 daily. Medical Branch sennosides Yes [id number] 8.6mg Take 1 [facility] (SENOKOT) 8-20 tablet by ity o f 8.6 mg 00:00: mouth [place] tablet 00 daily. Medical Branch amLODIPine Yes [id number] 10mg Take 1 U nivers 10 mg 8-20 tablet by ity of tablet 00:00: mouth [place] 00 daily. Medical Branch sennosides Yes [id number] 8.6mg Take 1 [facility] (SENOKOT) 8-20 tablet by ity o f 8.6 mg 00:00: mouth [place] tablet 00 daily. Medical Branch amLODIPine Yes [id number] 10mg Take 1 U nivers 10 mg 8-20 tablet by ity of tablet 00:00: mouth [place] 00 daily. [facility] Branch sennosides Yes [id number] 8.6mg Take 1 Univers (SENOKOT) 8-20 tablet by ity o f 8.6 mg 00:00: mouth [place] tablet 00 daily. [facility] hydrOXYzine 2019- No [id number] 25mg Take 1 [facility] 25 mg 8-20 -19 capsule by ity of capsule 00:00: 00:00 mouth 3 [place] 00 :00 (three) Medical times Branch daily as needed for Anxiety. esomeprazol Yes 40mg Take 40 mg Univers e 40 mg 7-26 by mouth. ity of capsule 02:09: [address] clopidogrel Yes 75mg Take 75 mg Univers (PLAVIX) 75 7-26 by mouth ity of mg tablet 02:09: daily. [address] esomeprazol Yes 40mg Take 40 mg Univers e 40 mg 7-26 by mouth. ity of capsule 02:09: [address] clopidogrel Yes 75mg Take 75 mg Univers (PLAVIX) 75 7-26 by mouth ity of mg tablet 02:09: daily. [address] esomeprazol Yes 40mg Take 40 mg Univers e 40 mg 7-26 by mouth. ity of capsule 02:09: [address] clopidogrel Yes 75mg Take 75 mg Univers (PLAVIX) 75 7-26 by mouth ity of mg tablet 02:09: daily. [address] esomeprazol Yes 40mg Take 40 mg [facility] e 40 mg 7-26 by mouth. ity of capsule 02:09: [address] clopidogrel Yes 75mg Take 75 mg Univers (PLAVIX) 75 7-26 by mouth ity of mg tablet 02:09: daily. [address] esomeprazol Yes 40mg Take 40 mg Univers e 40 mg 7-26 by mouth. ity of capsule 02:09: [address] clopidogrel Yes 75mg Take 75 mg Univers (PLAVIX) 75 7-26 by mouth ity of mg tablet 02:09: daily. [address] metFORMIN 2019- No 1000mg Take 1,000 Univers 1,000 mg 7-25 07-25 mg by ity of tablet 22:24: 00:00 mouth. [place] 47 :00 [facility] alum-mag 2018- Yes 30mL 30 mL, Univers hydroxide-s 12-04 Oral, ity of imeth 21:50: Q6HPRN, [place] (MAALOX 25 Starting Medical PLUS / [facility] MAG-AL 12/04/18 at PLUS) 1650, 200-200-20 Until mg/5 mL Discontinu suspension ed, 30 mL Routine, Indigestio n sulfur 2019- No 5mL 5 mL, Univers hexafluorid 12-04 Intravenou i ty of e microsphr 21:30: 20:20 s, ONCE, 1 [place] (LUMASON) 00 :00 dose, [facility] Medic al injection 5 12/04/18 at Br anch mL 1630, Routine KCL 2018- No 30meq 30 mEq, Univers (KLOR-CON 12-04 Oral, ity of M10) tablet 13:00: 14:19 ONCE, 1 [place] 30 mEq 00 :00 dose, [facility] 12/04/18 at Branch 0800, Routine nitroglycer 2019- No 1{patch 1 Patch, Univers in 12-04 } Transderma ity of (TRANSDERM- 11:15: 22:20 l (Apply [place] NITRO) 0.2 00 :00 To Skin), Medi lula mg/hr patch Administer Br anch 1 Patch over 12 Hours, ONCE, 1 dose, [facility] 12/04/18 at 0615, Routine ramelteon 2018- No 8mg 8 mg, Univer s (ROZEREM) 12-04 Oral, ity of tablet 8 mg 07:20: 07:50 ONCE, 1 [place] 00 :00 dose, [facility] 12/04/18 at Branch 0230, Routine hydralAZINE 2018- No 10mg 10 mg, Uni vers (APRESOLINE 12-04 Intravenou i ty of ) injection 03:53: 04:06 s, ONCE, 1 [place] 10 mg 00 :00 dose, [facility] 12/03/18 at Branch 2300, Routine
Indicatio n: Hypertensi ve Emergency morpHINE 2019- No 2mg 2 mg, Slow Un alfonso injection 2 7-25 07-25 IV Push, ity of mg 03:30: 02:35 ONCE, 1 [place] 00 :00 dose, Sat12/03/18 at Branch 2230, Routine morpHINE 2019- No 2mg 2 mg, Slow Un alfonso injection 2 7-25 07-25 IV Push, ity of mg 02:52: 03:32 ONCE, 1 00 :00 dose, Sat12/03/18 at Branch 2200, Routine rosuvastati 2018- Yes 10mg 10 mg, Univ ers n (CRESTOR) 7-25 Oral, QHS, it y of tablet 10 02:00: First dose [place] mg 00 on Sat12/03/18 at Branch 2100, Until Discontinu ed, Routine rosuvastati Yes [id number] 10mg Take 1 Univers n 10 mg 7-25 tablet by ity of tablet 00:00: mouth at [place] [address] bedtime. Medical Branch nitroglycer Yes [id number] .4mg Place 1 Univers in 0.4 mg 7-25 tablet ity of sublingual 00:00: under the [place] tablet 00 tongue Medical every 5 Branch (five) minutes as needed for Chest pain. metoprolol Yes [id number] 12.5mg Take 0.5 Univers tartrate 25 7-25 tablets by it y of mg tablet 00:00: mouth 2 (two) Medical times Branch daily. rosuvastati Yes [id number] 10mg Take 1 Univers n 10 mg 7-25 tablet by ity of tablet 00:00: mouth at [place] [address] bedtime. Medical Branch nitroglycer Yes [id number] .4mg Place 1 [facility] in 0.4 mg 7-25 tablet ity of sublingual 00:00: under the [place] tablet 00 tongue Medical every 5 Branch (five) minutes as needed for Chest pain. metoprolol Yes [id number] 12.5mg Take 0.5 [facility] tartrate 25 7-25 tablets by it y of mg tablet 00:00: mouth 2 00 (two) Medical times Branch daily. amLODIPine 2018- Yes [id number] 5mg Take 1 U nivers 5 mg tablet 7-25 tablet by ity of 00:00: mouth [place] 00 daily. Medical Branch traZODONE Yes [id number] 50mg Take 1 U nivers 50 mg 7-25 tablet by ity of tablet 00:00: mouth at [place] 00 bedtime. Medical Branch rosuvastati Yes [id number] 10mg Take 1 [facility] n 10 mg 7-25 tablet by ity of tablet 00:00: mouth at [place] 00 bedtime. Medical Branch nitroglycer Yes [id number] .4mg Place 1 [facility] in 0.4 mg 7-25 tablet ity of sublingual 00:00: under the [place] tablet 00 tongue Medical every 5 Branch (five) minutes as needed for Chest pain. metoprolol Yes [id number] 12.5mg Take 0.5 [facility] tartrate 25 7-25 tablets by it y of mg tablet 00:00: mouth 2 (two) Medical times Branch daily. amLODIPine Yes [id number] 5mg Take 1 U nivers 5 mg tablet 7-25 tablet by ity of 00:00: mouth [place] 00 daily. Medical Branch traZODONE Yes [id number] 50mg Take 1 U nivers 50 mg 7-25 tablet by ity of tablet 00:00: mouth at [place] 00 bedtime. Medical Branch rosuvastati Yes [id number] 10mg Take 1 Univers n 10 mg 7-25 tablet by ity of tablet 00:00: mouth at [place] 00 bedtime. Medical Branch nitroglycer Yes [id number] .4mg Place 1 Univers in 0.4 mg 7-25 tablet ity of sublingual 00:00: under the [place] tablet 00 tongue Medical every 5 Branch (five) minutes as needed for Chest pain. metoprolol Yes [id number] 12.5mg Take 0.5 [facility] tartrate 25 7-25 tablets by it y of mg tablet 00:00: mouth 2 (two) Medical times Branch daily. amLODIPine Yes [id number] 5mg Take 1 U nivers 5 mg tablet 7-25 tablet by ity of 00:00: mouth [place] 00 daily. Medical Branch traZODONE Yes [id number] 50mg Take 1 U nivers 50 mg 7-25 tablet by ity of tablet 00:00: mouth at [place] 00 bedtime. Medical Branch rosuvastati Yes [id number] 10mg Take 1 Univers n 10 mg 7-25 tablet by ity of tablet 00:00: mouth at [place] 00 bedtime. Medical Branch nitroglycer Yes [id number] .4mg Place 1 Univers in 0.4 mg 7-25 tablet ity of sublingual 00:00: under the [place] tablet 00 tongue Medical every 5 Branch (five) minutes as needed for Chest pain. metoprolol Yes [id number] 12.5mg Take 0.5 [facility] tartrate 25 7-25 tablets by it y of mg tablet 00:00: mouth 2 (two) Medical times Branch daily. rosuvastati Yes [id number] 10mg Take 1 Univers n 10 mg 7-25 tablet by ity of tablet 00:00: mouth at [place] bedtime. Medical Branch nitroglycer Yes [id number] .4mg Place 1 Univers in 0.4 mg 7-25 tablet ity of sublingual 00:00: under the [place] tablet 00 tongue Medical every 5 Branch (five) minutes as needed for Chest pain. metoprolol Yes [id number] 12.5mg Take 0.5 [facility] tartrate 25 7-25 tablets by it y of mg tablet 00:00: mouth 2 (two) Medical times Branch daily. rosuvastati Yes [id number] 10mg Take 1 Univers n 10 mg 7-25 tablet by ity of tablet 00:00: mouth at [place] bedtime. Medical Branch nitroglycer Yes [id number] .4mg Place 1 Univers in 0.4 mg 7-25 tablet ity of sublingual 00:00: under the [place] tablet 00 tongue Medical every 5 Branch (five) minutes as needed for Chest pain. metoprolol Yes [id number] 12.5mg Take 0.5 [facility] tartrate 25 7-25 tablets by it y of mg tablet 00:00: mouth 2 (two) Medical times Branch daily. rosuvastati Yes [id number] 10mg Take 1 Univers n 10 mg 7-25 tablet by ity of tablet 00:00: mouth at [place] [address] bedtime. Medical Branch nitroglycer Yes [id number] .4mg Place 1 Univers in 0.4 mg 7-25 tablet ity of sublingual 00:00: under the [place] tablet 00 tongue Medical every 5 Branch (five) minutes as needed for Chest pain. metoprolol Yes [id number] 12.5mg Take 0.5 [facility] tartrate 25 7-25 tablets by it y of mg tablet 00:00: mouth 2 (two) Medical times Branch daily. rosuvastati Yes [id number] 10mg Take 1 Univers n 10 mg 7-25 tablet by ity of tablet 00:00: mouth at [place] bedtime. Medical Branch nitroglycer Yes [id number] .4mg Place 1 [facility] in 0.4 mg 7-25 tablet ity of sublingual 00:00: under the [place] tablet 00 tongue Medical every 5 Branch (five) minutes as needed for Chest pain. metoprolol Yes [id number] 12.5mg Take 0.5 [facility] tartrate 25 7-25 tablets by it y of mg tablet 00:00: mouth 2 (two) Medical times Branch daily. rosuvastati Yes [id number] 10mg Take 1 Univers n 10 mg 7-25 tablet by ity of tablet 00:00: mouth at [place] bedtime. Medical Branch nitroglycer Yes [id number] .4mg Place 1 Univers in 0.4 mg 7-25 tablet ity of sublingual 00:00: under the [place] tablet 00 tongue Medical every 5 Branch (five) minutes as needed for Chest pain. metoprolol Yes [id number] 12.5mg Take 0.5 [facility] tartrate 25 7-25 tablets by it y of mg tablet 00:00: mouth 2 (two) Medical times Branch daily. rosuvastati Yes [id number] 10mg Take 1 [facility] n 10 mg 7-25 tablet by ity of tablet 00:00: mouth at [place] bedtime. Medical Branch nitroglycer Yes [id number] .4mg Place 1 Univers in 0.4 mg 7-25 tablet ity of sublingual 00:00: under the [place] tablet 00 tongue Medical every 5 Branch (five) minutes as needed for Chest pain. metoprolol Yes [id number] 12.5mg Take 0.5 [facility] tartrate 25 7-25 tablets by it y of mg tablet 00:00: mouth 2 (two) Medical times Branch daily. rosuvastati Yes [id number] 10mg Take 1 Univers n 10 mg 7-25 tablet by ity of tablet 00:00: mouth at [place] 00 bedtime. Medical Branch nitroglycer Yes [id number] .4mg Place 1 Univers in 0.4 mg 7-25 tablet ity of sublingual 00:00: under the [place] tablet 00 tongue Medical every 5 Branch (five) minutes as needed for Chest pain. metoprolol Yes [id number] 12.5mg Take 0.5 [facility] tartrate 25 7-25 tablets by it y of mg tablet 00:00: mouth 2 (two) Medical times Branch daily. rosuvastati Yes [id number] 10mg Take 1 Univers n 10 mg 7-25 tablet by ity of tablet 00:00: mouth at [place] bedtime. Medical Branch nitroglycer Yes [id number] .4mg Place 1 [facility] in 0.4 mg 7-25 tablet ity of sublingual 00:00: under the [place] tablet 00 tongue Medical every 5 Branch (five) minutes as needed for Chest pain. metoprolol Yes [id number] 12.5mg Take 0.5 [facility] tartrate 25 7-25 tablets by it y of mg tablet 00:00: mouth 2 (two) Medical times Branch daily. rosuvastati Yes [id number] 10mg Take 1 Univers n 10 mg 7-25 tablet by ity of tablet 00:00: mouth at [place] bedtime. Medical Branch nitroglycer Yes [id number] .4mg Place 1 [facility] in 0.4 mg 7-25 tablet ity of sublingual 00:00: under the [place] tablet 00 tongue Medical every 5 Branch (five) minutes as needed for Chest pain. metoprolol Yes [id number] 12.5mg Take 0.5 [facility] tartrate 25 7-25 tablets by it y of mg tablet 00:00: mouth 2 (two) Medical times Branch daily. rosuvastati Yes [id number] 10mg Take 1 [facility] n 10 mg 7-25 tablet by ity of tablet 00:00: mouth at [place] bedtime. Medical Branch nitroglycer Yes [id number] .4mg Place 1 [facility] in 0.4 mg 7-25 tablet ity of sublingual 00:00: under the [place] tablet 00 tongue Medical every 5 Branch (five) minutes as needed for Chest pain. metoprolol 2018-0 Yes [id number] 12.5mg Take 0.5 [facility] tartrate 25 7-25 tablets by it y of mg tablet 00:00: mouth 2 (two) Medical times Branch daily. rosuvastati 2018- Yes [id number] 10mg Take 1 Univers n 10 mg 7-25 tablet by ity of tablet 00:00: mouth at [place] bedtime. Medical Branch nitroglycer Yes [id number] .4mg Place 1 Univers in 0.4 mg 7-25 tablet ity of sublingual 00:00: under the [place] tablet 00 tongue Medical every 5 Branch (five) minutes as needed for Chest pain. metoprolol Yes [id number] 12.5mg Take 0.5 [facility] tartrate 25 7-25 tablets by it y of mg tablet 00:00: mouth 2 (two) Medical times Branch daily. rosuvastati Yes [id number] 10mg Take 1 Univers n 10 mg 7-25 tablet by ity of tablet 00:00: mouth at [place] bedtime. Medical Branch nitroglycer Yes [id number] .4mg Place 1 Univers in 0.4 mg 7-25 tablet ity of sublingual 00:00: under the [place] tablet 00 tongue Medical every 5 Branch (five) minutes as needed for Chest pain. metoprolol Yes [id number] 12.5mg Take 0.5 [facility] tartrate 25 7-25 tablets by it y of mg tablet 00:00: mouth 2 (two) Medical times Branch daily. rosuvastati Yes [id number] 10mg Take 1 Univers n 10 mg 7-25 tablet by ity of tablet 00:00: mouth at [place] bedtime. Medical Branch nitroglycer Yes [id number] .4mg Place 1 [facility] in 0.4 mg 7-25 tablet ity of sublingual 00:00: under the [place] tablet 00 tongue Medical every 5 Branch (five) minutes as needed for Chest pain. rosuvastati 2018- Yes [id number] 10mg Take 1 Univers n 10 mg 7-25 tablet by ity of tablet 00:00: mouth at [place] [address] bedtime. Medical Branch nitroglycer Yes [id number] .4mg Place 1 [facility] in 0.4 mg 7-25 tablet ity of sublingual 00:00: under the [place] tablet 00 tongue Medical every 5 Branch (five) minutes as needed for Chest pain. metoprolol Yes [id number] 12.5mg Take 0.5 [facility] tartrate 25 7-25 tablets by it y of mg tablet 00:00: mouth 2 [place] (two) Medical times Branch daily. metoprolol Yes [id number] 12.5mg Take 0.5 [facility] tartrate 25 7-25 tablets by it y of mg tablet 00:00: mouth 2 [place] (two) Medical times Branch daily. amLODIPine Yes [id number] 5mg Take 1 U nivers 5 mg tablet 7-25 tablet by ity of 00:00: mouth [place] daily. Medical Branch traZODONE Yes [id number] 50mg Take 1 U nivers 50 mg 7-25 tablet by ity of tablet 00:00: mouth at [place] [address] bedtime. Medical Branch rosuvastati Yes [id number] 10mg Take 1 Univers n 10 mg 7-25 tablet by ity of tablet 00:00: mouth at [place] [address] bedtime. Medical Branch nitroglycer Yes [id number] .4mg Place 1 [facility] in 0.4 mg 7-25 tablet ity of sublingual 00:00: under the [place] tablet 00 tongue Medical every 5 Branch (five) minutes as needed for Chest pain. metoprolol Yes [id number] 12.5mg Take 0.5 [facility] tartrate 25 7-25 tablets by it y of mg tablet 00:00: mouth 2 [place] (two) Medical times Branch daily. rosuvastati Yes [id number] 10mg Take 1 [facility] n 10 mg 7-25 tablet by ity of tablet 00:00: mouth at [place] [address] bedtime. Medical Branch nitroglycer Yes [id number] .4mg Place 1 [facility] in 0.4 mg 7-25 tablet ity of sublingual 00:00: under the [place] tablet 00 tongue Medical every 5 Branch (five) minutes as needed for Chest pain. metoprolol Yes [id number] 12.5mg Take 0.5 [facility] tartrate 25 7-25 tablets by it y of mg tablet 00:00: mouth 2 (two) Medical times Branch daily. rosuvastati Yes [id number] 10mg Take 1 [facility] n 10 mg 7-25 tablet by ity of tablet 00:00: mouth at [place] bedtime. Medical Branch nitroglycer Yes [id number] .4mg Place 1 [facility] in 0.4 mg 7-25 tablet ity of sublingual 00:00: under the [place] tablet 00 tongue Medical every 5 Branch (five) minutes as needed for Chest pain. metoprolol Yes [id number] 12.5mg Take 0.5 [facility] tartrate 25 7-25 tablets by it y of mg tablet 00:00: mouth 2 (two) Medical times Branch daily. rosuvastati Yes [id number] 10mg Take 1 [facility] n 10 mg 7-25 tablet by ity of tablet 00:00: mouth at [place] bedtime. Medical Branch nitroglycer Yes [id number] .4mg Place 1 [facility] in 0.4 mg 7-25 tablet ity of sublingual 00:00: under the [place] tablet 00 tongue Medical every 5 Branch (five) minutes as needed for Chest pain. metoprolol Yes [id number] 12.5mg Take 0.5 [facility] tartrate 25 7-25 tablets by it y of mg tablet 00:00: mouth 2 (two) Medical times Branch daily. rosuvastati Yes [id number] 10mg Take 1 [facility] n 10 mg 7-25 tablet by ity of tablet 00:00: mouth at [place] bedtime. Medical Branch nitroglycer Yes [id number] .4mg Place 1 [facility] in 0.4 mg 7-25 tablet ity of sublingual 00:00: under the [place] tablet 00 tongue Medical every 5 Branch (five) minutes as needed for Chest pain. metoprolol Yes [id number] 12.5mg Take 0.5 [facility] tartrate 25 7-25 tablets by it y of mg tablet 00:00: mouth 2 (two) Medical times Branch daily. rosuvastati Yes [id number] 10mg Take 1 [facility] n 10 mg 7-25 tablet by ity of tablet 00:00: mouth at [place] bedtime. Medical Branch nitroglycer Yes [id number] .4mg Place 1 [facility] in 0.4 mg 7-25 tablet ity of sublingual 00:00: under the [place] tablet 00 tongue Medical every 5 Branch (five) minutes as needed for Chest pain. metoprolol Yes [id number] 12.5mg Take 0.5 [facility] tartrate 25 7-25 tablets by it y of mg tablet 00:00: mouth 2 (two) Medical times Branch daily. rosuvastati Yes [id number] 10mg Take 1 [facility] n 10 mg 7-25 tablet by ity of tablet 00:00: mouth at [place] bedtime. Medical Branch nitroglycer Yes [id number] .4mg Place 1 [facility] in 0.4 mg 7-25 tablet ity of sublingual 00:00: under the [place] tablet 00 tongue Medical every 5 Branch (five) minutes as needed for Chest pain. metoprolol Yes [id number] 12.5mg Take 0.5 [facility] tartrate 25 7-25 tablets by it y of mg tablet 00:00: mouth 2 (two) Medical times Branch daily. rosuvastati Yes [id number] 10mg Take 1 [facility] n 10 mg 7-25 tablet by ity of tablet 00:00: mouth at [place] bedtime. Medical Branch nitroglycer Yes [id number] .4mg Place 1 [facility] in 0.4 mg 7-25 tablet ity of sublingual 00:00: under the [place] tablet 00 tongue Medical every 5 Branch (five) minutes as needed for Chest pain. metoprolol Yes [id number] 12.5mg Take 0.5 [facility] tartrate 25 7-25 tablets by it y of mg tablet 00:00: mouth 2 [place] (two) Medical times Branch daily. rosuvastati Yes [id number] 10mg Take 1 [facility] n 10 mg 7-25 tablet by ity of tablet 00:00: mouth at [place] [address] bedtime. Medical Branch nitroglycer Yes [id number] .4mg Place 1 [facility] in 0.4 mg 7-25 tablet ity of sublingual 00:00: under the [place] tablet 00 tongue Medical every 5 Branch (five) minutes as needed for Chest pain. metoprolol Yes [id number] 12.5mg Take 0.5 [facility] tartrate 25 7-25 tablets by it y of mg tablet 00:00: mouth 2 (two) Medical times Branch daily. rosuvastati Yes [id number] 10mg Take 1 [facility] n 10 mg 7-25 tablet by ity of tablet 00:00: mouth at bedtime. Medical Branch nitroglycer Yes [id number] .4mg Place 1 [facility] in 0.4 mg 7-25 tablet ity of sublingual 00:00: under the [place] tablet 00 tongue Medical every 5 Branch (five) minutes as needed for Chest pain. metoprolol Yes [id number] 12.5mg Take 0.5 [facility] tartrate 25 7-25 tablets by it y of mg tablet 00:00: mouth 2 (two) Medical times Branch daily. rosuvastati Yes [id number] 10mg Take 1 [facility] n 10 mg 7-25 tablet by ity of tablet 00:00: mouth at [place] bedtime. Medical Branch nitroglycer Yes [id number] .4mg Place 1 [facility] in 0.4 mg 7-25 tablet ity of sublingual 00:00: under the [place] tablet 00 tongue Medical every 5 Branch (five) minutes as needed for Chest pain. metoprolol Yes [id number] 12.5mg Take 0.5 [facility] tartrate 25 7-25 tablets by it y of mg tablet 00:00: mouth 2 (two) Medical times Branch daily. rosuvastati Yes [id number] 10mg Take 1 [facility] n 10 mg 7-25 tablet by ity of tablet 00:00: mouth at [place] bedtime. Medical Branch nitroglycer Yes [id number] .4mg Place 1 [facility] in 0.4 mg 7-25 tablet ity of sublingual 00:00: under the [place] tablet 00 tongue Medical every 5 Branch (five) minutes as needed for Chest pain. metoprolol Yes [id number] 12.5mg Take 0.5 [facility] tartrate 25 7-25 tablets by it y of mg tablet 00:00: mouth 2 (two) Medical times Branch daily. rosuvastati Yes [id number] 10mg Take 1 [facility] n 10 mg 7-25 tablet by ity of tablet 00:00: mouth at [place] 00 bedtime. Medical Branch nitroglycer Yes [id number] .4mg Place 1 [facility] in 0.4 mg 7-25 tablet ity of sublingual 00:00: under the [place] tablet 00 tongue Medical every 5 Branch (five) minutes as needed for Chest pain. metoprolol Yes [id number] 12.5mg Take 0.5 [facility] tartrate 25 7-25 tablets by it y of mg tablet 00:00: mouth 2 [place] (two) Medical times Branch daily. rosuvastati Yes [id number] 10mg Take 1 [facility] n 10 mg 7-25 tablet by ity of tablet 00:00: mouth at [place] bedtime. Medical Branch nitroglycer Yes [id number] .4mg Place 1 [facility] in 0.4 mg 7-25 tablet ity of sublingual 00:00: under the [place] tablet 00 tongue Medical every 5 Branch (five) minutes as needed for Chest pain. metoprolol Yes [id number] 12.5mg Take 0.5 [facility] tartrate 25 7-25 tablets by it y of mg tablet 00:00: mouth 2 [place] (two) Medical times Branch daily. rosuvastati Yes [id number] 10mg Take 1 [facility] n 10 mg 7-25 tablet by ity of tablet 00:00: mouth at [place] bedtime. Medical Branch nitroglycer Yes [id number] .4mg Place 1 [facility] in 0.4 mg 7-25 tablet ity of sublingual 00:00: under the [place] tablet 00 tongue Medical every 5 Branch (five) minutes as needed for Chest pain. metoprolol Yes [id number] 12.5mg Take 0.5 [facility] tartrate 25 7-25 tablets by it y of mg tablet 00:00: mouth 2 [place] (two) Medical times Branch daily. rosuvastati Yes [id number] 10mg Take 1 [facility] n 10 mg 7-25 tablet by ity of tablet 00:00: mouth at [place] bedtime. Medical Branch nitroglycer Yes [id number] .4mg Place 1 [facility] in 0.4 mg 7-25 tablet ity of sublingual 00:00: under the [place] tablet 00 tongue Medical every 5 Branch (five) minutes as needed for Chest pain. metoprolol Yes [id number] 12.5mg Take 0.5 [facility] tartrate 25 7-25 tablets by it y of mg tablet 00:00: mouth 2 [place] 00 (two) Medical times Branch daily. amLODIPine 2019- No [id number] 5mg Take 1 [facility] 5 mg tablet 7-25 08-20 tablet by it y of 00:00: 00:00 mouth [place] 00 :00 daily. Medical Branch traZODONE 2019- No [id number] 50mg Take 1 [facility] 50 mg 7-25 08-20 tablet by ity of tablet 00:00: 00:00 mouth at [place] 00 :00 bedtime. Medical Branch amLODIPine 2019- No [id number] 5mg Take 1 [facility] 5 mg tablet 7-25 08-20 tablet by it y of 00:00: 00:00 mouth [place] 00 :00 daily. Medical Branch traZODONE 2019- No [id number] 50mg Take 1 [facility] 50 mg 7-25 08-20 tablet by ity of tablet 00:00: 00:00 mouth at [place] 00 :00 bedtime. Medical Branch acetaminoph Yes 650mg 650 mg, [facility] en 7-24 Oral, ity of (TYLENOL) 22:46: Q6HPRN, [place] tablet 650 29 Starting Medic al mg Sat Branch 12/03/18 at 1746, Until Discontinu ed, Routine, Pain (scale 1-3), Pain (scale 4-6), headache metoprolol Yes 12.5mg 12.5 mg, U nivers tartrate 7-24 Oral, BID, ity o f (LOPRESSOR) 15:45: First dose [place] tablet 12.5 00 on Sat Medica l mg 12/03/18 at Branch 1045, Until Discontinu ed, Routine pantoprazol Yes 40mg 40 mg, Univ ers e 7-24 Oral, ity of (PROTONIX) 14:00: DAILY, [place] EC tablet 00 First dose Medi lula 40 mg on Sat Branch 12/03/18 at 0900, Until Discontinu ed, Routine nitroglycer 2019- No 1[in_us 1 Inch, Univers in (NITROL) 12-03 ] Transderma i ty of 2 % 11:00: 09:05 l (Apply [place] ointment 1 00 :19 To Skin), Medi lula Inch Q6HHOL, Branch First dose on Sat12/03/18 at 0600, Until Discontinu ed, Routine KCL 2018- No 40meq 40 mEq, Univers (KLOR-CON 12-03 Oral, ity of M20) tablet 10:30: 09:50 ONCE, 1 [place] 40 mEq 00 :00 dose, Sat Medical 12/03/18 at Branch 0530, Routine NaCl 0.9% 2019- No 500mL at 999 Univ ers (NS) IV 12-03 mL/hr, IV ity of infusion 09:00: 09:15 Infusion, [place] as 500 mL 00 :00 ONCE, 1 Medical dose, Sat [place] 12/03/18 at 0400, Routine nitroglycer 2018- No 5ug/min 5 mcg/min Univers in 50 12-03 (1.5 ity of mg/250 mL 04:39: 14:14 mL/hr), IV [place] (Fixed 22 :31 Infusion, Medical Dose) TITRATE, Branch infusion Starting Sat12/02/18 at 2339, Until Sat12/03/18 at 0914, To be tirtrated up if chest pain persist, Routine ondansetron 2018- Yes 4mg 4 mg, Slow Univers (ZOFRAN 12-03 IV Push, ity of (PF)) 03:20: Q6HPRN, [place] injection 4 45 Starting Medi lula mg Sat [place] 12/02/18 at 2220, Until Discontinu ed, Routine, Nausea and Vomiting (N/V) amLODIPine 2019- No 5mg 5 mg, Unive rs (NORVASC) 12-03 Oral, ity of tablet 5 mg 03:15: 07:58 DAILY, [place] 00 :00 First dose Medical on Sat [place] 12/02/18 at 2215, Until Discontinu ed, Routine clopidogrel 2018- Yes 75mg 75 mg, Univ ers (PLAVIX) 12-02 Oral, ity of tablet 75 14:00: DAILY, [place] mg 00 First dose Medical on Sat [place] 12/02/18 at 0900, Until Discontinu ed, Routine enoxaparin 2018- Yes 40mg 40 mg, Unive rs (LOVENOX) 7-23 Subcutaneo ity of injection 14:00: us, DAILY, [place] 40 mg 00 First dose Medical on [facility] 12/02/18 at 0900, Until Discontinu ed, Routine Sliding Yes Subcutaneo Univ ers Scale 12-02 us, AC+HS, ity of Insulin-Reg 12:30: First dose [place] ular + Fsbg 00 on [facility] l Testing 12/02/18 at Branch 0730, Until Discontinu ed, Routine nitroglycer Yes .4mg 0.4 mg, Uni vers in 12-02 Sublingual ity of (NITROSTAT) 05:54: , Q5MIN [place] sublingual 26 PRN, Medical tablet 0.4 Starting Branc h mg [facility] 12/02/18 at 0054, Until Discontinu ed, Routine, Chest pain morpHINE 2019- No 2mg 2 mg, Slow Un alfonso injection 2 12-02 07-24 IV Push, ity of mg 05:53: 03:42 Q4HPRN, [place] 42 :05 Starting Medical [facility] 12/02/18 at 0053, Until [facility] 12/02/18 at 2242, Routine, Pain (scale 7-10) SERTraline Yes [id number] 50mg Take 1 U nivers 50 mg 3-21 tablet by ity of tablet 00:00: mouth [place] 00 daily. [facility] Branch SERTraline 2018-0 Yes [id number] 50mg Take 1 U nivers 50 mg 3-21 tablet by ity of tablet 00:00: mouth [place] 00 daily. [facility] Branch SERTraline 2018-0 Yes [id number] 50mg Take 1 U nivers 50 mg 3-21 tablet by ity of tablet 00:00: mouth [place] 00 daily. [facility] Branch SERTraline 2019-0 Yes [id number] 50mg Take 1 U nivers 50 mg 3-21 tablet by ity of tablet 00:00: mouth [place] 00 daily. [facility] Branch SERTraline 2019-0 Yes [id number] 50mg Take 1 U nivers 50 mg 3-21 tablet by ity of tablet 00:00: mouth [place] 00 daily. [facility] Branch SERTraline 2019-0 Yes [id number] 50mg Take 1 U nivers 50 mg 3-21 tablet by ity of tablet 00:00: mouth [place] 00 daily. [facility] Branch SERTraline 2019-0 Yes [id number] 50mg Take 1 U nivers 50 mg 3-21 tablet by ity of tablet 00:00: mouth 00 daily. Medical Branch SERTraline 2019-0 Yes [id number] 50mg Take 1 U nivers 50 mg 3-21 tablet by ity of tablet 00:00: mouth 00 daily. Medical Branch metFORMIN 2019-0 Yes [id number] 1000mg Take 1 [facility] 1,000 mg 2-25 tablet by ity of tablet 00:00: mouth (two) Medical times Branch daily with meals. metFORMIN 2019-0 Yes [id number] 1000mg Take 1 [facility] 1,000 mg 2-25 tablet by ity of tablet 00:00: mouth (two) Medical times Branch daily with meals. metFORMIN 2019-0 Yes [id number] 1000mg Take 1 [facility] 1,000 mg 2-25 tablet by ity of tablet 00:00: mouth (two) Medical times Branch daily with meals. metFORMIN 2019-0 Yes [id number] 1000mg Take 1 [facility] 1,000 mg 2-25 tablet by ity of tablet 00:00: mouth (two) Medical times Branch daily with meals. metFORMIN 2019-0 Yes [id number] 1000mg Take 1 [facility] 1,000 mg 2-25 tablet by ity of tablet 00:00: mouth (two) Medical times Branch daily with meals. metFORMIN 2019-0 Yes [id number] 1000mg Take 1 [facility] 1,000 mg 2-25 tablet by ity of tablet 00:00: mouth (two) Medical times Branch daily with meals. metFORMIN 2019-0 Yes [id number] 1000mg Take 1 [facility] 1,000 mg 2-25 tablet by ity of tablet 00:00: mouth (two) Medical times Branch daily with meals. metFORMIN 2019-0 Yes [id number] 1000mg Take 1 [facility] 1,000 mg 2-25 tablet by ity of tablet 00:00: mouth (two) Medical times Branch daily with meals. traZODONE 2019-0 2019- No [id number] 50mg Take 1 [facility] 50 mg 2-25 07-25 tablet by ity of tablet 00:00: 00:00 mouth at [place] 00 :00 bedtime. Medical Branch lancets 31 2018-1 Yes Use as Unive rs gauge Misc 0-23 directed ity o f 00:00: [place] Medical Branch blood sugar 2017-05 Yes Use as Univ ers diagnostic 0-23 directed ity o f (ACCU-CHEK 00:00: [place] SMARTVIEW 00 Medical TEST STRIP) Branch strip lancets 2017-05 Yes Use as Unive rs gauge Misc 0-23 directed ity o f 00:00: [place] Medical Branch blood sugar 2017-05 Yes Use as Univ ers diagnostic 0-23 directed ity o f (ACCU-CHEK 00:00: [place] SMARTVIEW 00 Medical TEST STRIP) Branch strip lancets 2017-05 Yes Use as Unive rs gauge Misc 0-23 directed ity o f 00:00: [place] Medical Branch blood sugar 2017-05 Yes Use as Univ ers diagnostic 0-23 directed ity o f (ACCU-CHEK 00:00: [place] SMARTVIEW 00 Medical TEST STRIP) Branch strip lancets 2017-05 Yes Use as Unive rs gauge Misc 0-23 directed ity o f 00:00: [place] Medical Branch blood sugar 2017-05 Yes Use as Univ ers diagnostic 0-23 directed ity o f (ACCU-CHEK 00:00: [place] SMARTVIEW 00 Medical TEST STRIP) Branch strip lancets 2017-05 Yes Use as Unive rs gauge Misc 0-23 directed ity o f 00:00: [place] Medical Branch blood sugar 2017-05 Yes Use as Univ ers diagnostic 0-23 directed ity o f (ACCU-CHEK 00:00: [place] SMARTVIEW 00 Medical TEST STRIP) Branch strip lancets 2017-05 Yes Use as Unive rs gauge Misc 0-23 directed ity o f 00:00: [place] Medical Branch blood sugar 2017-05 Yes Use as Univ ers diagnostic 0-23 directed ity o f (ACCU-CHEK 00:00: [place] SMARTVIEW 00 Medical TEST STRIP) Branch strip lancets 2017-05 Yes Use as Unive rs gauge Misc 0-23 directed ity o f 00:00: [place] Medical Branch blood sugar 2017-05 Yes Use as Univ ers diagnostic 0-23 directed ity o f (ACCU-CHEK 00:00: [place] SMARTVIEW 00 Medical TEST STRIP) Branch strip lancets 2017-05 Yes Use as Unive rs gauge Misc 0-23 directed ity o f 00:00: [place] Medical Branch blood sugar 2017-05 Yes Use as Univ ers diagnostic 0-23 directed ity o f (ACCU-CHEK 00:00: [place] SMARTVIEW 00 Medical TEST STRIP) Branch strip lancets 2017-05 Yes Use as Unive rs gauge Misc 0-23 directed ity o f 00:00: [place] Medical Branch blood sugar 2017-05 Yes Use as Univ ers diagnostic 0-23 directed ity o f (ACCU-CHEK 00:00: [place] SMARTVIEW 00 Medical TEST STRIP) Branch strip lancets 2017-05 Yes Use as Unive rs gauge Misc 0-23 directed ity o f 00:00: [place] Medical Branch blood sugar 2017-05 Yes Use as Univ ers diagnostic 0-23 directed ity o f (ACCU-CHEK 00:00: [place] SMARTVIEW 00 Medical TEST STRIP) Branch strip lancets 2017-05 Yes Use as Unive rs gauge Misc 0-23 directed ity o f 00:00: [place] Medical Branch blood sugar 2017-05 Yes Use as Univ ers diagnostic 0-23 directed ity o f (ACCU-CHEK 00:00: [place] SMARTVIEW 00 Medical TEST STRIP) Branch strip lancets 2017-05 Yes Use as Unive rs gauge Misc 0-23 directed ity o f 00:00: [place] Medical Branch blood sugar 2017-05 Yes Use as Univ ers diagnostic 0-23 directed ity o f (ACCU-CHEK 00:00: [place] SMARTVIEW 00 Medical TEST STRIP) Branch strip lancets 2017-05 Yes Use as Unive rs gauge Misc 0-23 directed ity o f 00:00: [place] Medical Branch blood sugar 2017-05 Yes Use as Univ ers diagnostic 0-23 directed ity o f (ACCU-CHEK 00:00: [place] SMARTVIEW 00 Medical TEST STRIP) Branch strip lancets 2017-05 Yes Use as Unive rs gauge Misc 0-23 directed ity o f 00:00: [place] Medical Branch blood sugar 2017-05 Yes Use as Univ ers diagnostic 0-23 directed ity o f (ACCU-CHEK 00:00: [place] SMARTVIEW 00 Medical TEST STRIP) Branch strip lancets 2017-05 Yes Use as Unive rs gauge Misc 0-23 directed ity o f 00:00: [place] Medical Branch blood sugar 2017-05 Yes Use as Univ ers diagnostic 0-23 directed ity o f (ACCU-CHEK 00:00: [place] SMARTVIEW 00 Medical TEST STRIP) Branch strip lancets 2017-05 Yes Use as Unive rs gauge Misc 0-23 directed ity o f 00:00: [place] 00 Medical Branch blood sugar 2017-05 Yes Use as Univ ers diagnostic 0-23 directed ity o f (ACCU-CHEK 00:00: [place] SMARTVIEW 00 Medical TEST STRIP) Branch strip lancets 2017-05 Yes Use as Unive rs gauge Misc 0-23 directed ity o f 00:00: [place] 00 Medical Branch lancets 2017-05 Yes Use as Unive rs gauge Misc 0-23 directed ity o f 00:00: [place] Medical Branch blood sugar 2017-05 Yes Use as Univ ers diagnostic 0-23 directed ity o f (ACCU-CHEK 00:00: [place] [facility] Branch strip blood sugar 2017-05 Yes Use as Univ ers diagnostic 0-23 directed ity o f (ACCU-CHEK 00:00: [place] [facility]) Branch strip lancets 2017-05 Yes Use as Unive rs gauge Misc 0-23 directed ity o f 00:00: [place] Medical Branch blood sugar 2017-05 Yes Use as Univ ers diagnostic 0-23 directed ity o f (ACCU-CHEK 00:00: [place] [facility]) Branch strip lancets 2017-05 Yes Use as Unive rs gauge Misc 0-23 directed ity o f 00:00: [place] Medical Branch blood sugar 2017-05 Yes Use as Univ ers diagnostic 0-23 directed ity o f (ACCU-CHEK 00:00: [place] SMARTVIEW 00 Medical TEST STRIP) Branch strip lancets 2017-05 Yes Use as Unive rs gauge Misc 0-23 directed ity o f 00:00: [place] [facility] Branch blood sugar 2017-05 Yes Use as Univ ers diagnostic 0-23 directed ity o f (ACCU-CHEK 00:00: [place] SMARTVIEW 00 Medical TEST STRIP) Branch strip lancets 2017-05 Yes Use as Unive rs gauge Misc 0-23 directed ity o f 00:00: [place] Medical Branch blood sugar 2017-05 Yes Use as Univ ers diagnostic 0-23 directed ity o f (ACCU-CHEK 00:00: [place] SMARTVIEW 00 Medical TEST STRIP) Branch strip lancets 2017-05 Yes Use as Unive rs gauge Misc 0-23 directed ity o f 00:00: [place] [facility] Branch blood sugar 2017-05 Yes Use as Univ ers diagnostic 0-23 directed ity o f (ACCU-CHEK 00:00: [place] SMARTVIEW 00 Medical TEST STRIP) Branch strip lancets 2017-05 Yes Use as Unive rs gauge Misc 0-23 directed ity o f 00:00: [place] Medical Branch blood sugar 2017-05 Yes Use as Univ ers diagnostic 0-23 directed ity o f (ACCU-CHEK 00:00: [place] SMARTVIEW 00 Medical TEST STRIP) Branch strip lancets 2017-05 Yes Use as Unive rs gauge Misc 0-23 directed ity o f 00:00: [place] Medical Branch blood sugar 2017-05 Yes Use as Univ ers diagnostic 0-23 directed ity o f (ACCU-CHEK 00:00: [place] SMARTVIEW 00 Medical TEST STRIP) Branch strip lancets 2017-05 Yes Use as Unive rs gauge Misc 0-23 directed ity o f 00:00: [place] Medical Branch blood sugar 2017-05 Yes Use as Univ ers diagnostic 0-23 directed ity o f (ACCU-CHEK 00:00: [place] SMARTVIEW 00 Medical TEST STRIP) Branch strip lancets 2017-05 Yes Use as Unive rs gauge Misc 0-23 directed ity o f 00:00: [place] Medical Branch blood sugar 2017-05 Yes Use as Univ ers diagnostic 0-23 directed ity o f (ACCU-CHEK 00:00: [place] SMARTVIEW 00 Medical TEST STRIP) Branch strip lancets 2017-05 Yes Use as Unive rs gauge Misc 0-23 directed ity o f 00:00: [place] Medical Branch blood sugar 2017-05 Yes Use as Univ ers diagnostic 0-23 directed ity o f (ACCU-CHEK 00:00: [place] SMARTVIEW 00 Medical TEST STRIP) Branch strip lancets 2017-05 Yes Use as Unive rs gauge Misc 0-23 directed ity o f 00:00: [place] Medical Branch blood sugar 2017-05 Yes Use as Univ ers diagnostic 0-23 directed ity o f (ACCU-CHEK 00:00: [place] SMARTVIEW 00 Medical TEST STRIP) Branch strip lancets 2017-05 Yes Use as Unive rs gauge Misc 0-23 directed ity o f 00:00: [place] [facility] Branch blood sugar 2017-05 Yes Use as Univ ers diagnostic 0-23 directed ity o f (ACCU-CHEK 00:00: [place] SMARTVIEW 00 Medical TEST STRIP) Branch strip lancets 2017-05 Yes Use as Unive rs gauge Misc 0-23 directed ity o f 00:00: [place] Medical Branch blood sugar 2017-05 Yes Use as Univ ers diagnostic 0-23 directed ity o f (ACCU-CHEK 00:00: [place] SMARTVIEW 00 Medical TEST STRIP) Branch strip lancets 2017-05 Yes Use as Unive rs gauge Misc 0-23 directed ity o f 00:00: [place] Medical Branch blood sugar 2017-05 Yes Use as Univ ers diagnostic 0-23 directed ity o f (ACCU-CHEK 00:00: [place] [facility] TEST [facility]) Branch strip lancets 2017-05 Yes Use as Unive rs gauge Misc 0-23 directed ity o f 00:00: [place] Medical Branch blood sugar 2017-05 Yes Use as Univ ers diagnostic 0-23 directed ity o f (ACCU-CHEK 00:00: [place] [facility] Medical TEST STR[facility]) Branch strip lancets 2017-05 Yes Use as Unive rs gauge Misc 0-23 directed ity o f 00:00: [place] Medical Branch blood sugar 2017-05 Yes Use as Univ ers diagnostic 0-23 directed ity o f (ACCU-CHEK 00:00: [place] SMARTVIEW 00 Medical TEST STRIP) Branch strip lancets 2017-05 Yes Use as Unive rs gauge Misc 0-23 directed ity o f 00:00: [place] Medical Branch blood sugar 2017-05 Yes Use as Univ ers diagnostic 0-23 directed ity o f (ACCU-CHEK 00:00: [place] SMARTVIEW 00 Medical TEST STRIP) Branch strip lancets 2017-05 Yes Use as Unive rs gauge Misc 0-23 directed ity o f 00:00: [place] [facility] Branch blood sugar 2017-05 Yes Use as Univ ers diagnostic 0-23 directed ity o f (ACCU-CHEK 00:00: [place] SMARTVIEW 00 Medical TEST STRIP) Branch strip lancets 2017-05 Yes Use as Unive rs gauge Misc 0-23 directed ity o f 00:00: [place] 00 Medical Branch blood sugar 2017-05 Yes Use as Univ ers diagnostic 0- directed ity o f (ACCU-CHEK 00:00: [place] SMARTVIEW 00 Medical TEST STRIP) Branch strip amLODIPine 2017-05- No 5mg Take 1 Univ ers 5 mg tablet 12-04 tablet by it y of 00:00: 00:00 mouth [place] 00 :00 daily. Medical Branch empaglifloz 2017-05- No 10mg Take 10 mg Univers in -24 by mouth ity of (JARDIANCE) 00:00: 00:00 daily. [place] as 10 mg Tab 00 :00 Medical Branch LYRICA 200 0 Yes 200mg Take 200 [facility] [place] mg capsule 7-26 mg by ity of 00:00: mouth 3 [place] [id number] (three) Medical times Branch daily. LYRICA 200 2017- Yes 200mg Take 200 [place] mg capsule 7-26 mg by ity of 00:00: mouth 3 [place] ([facility]) Medical times Branch daily. LYRICA 200 2017-0 Yes 200mg Take 200 [place] mg capsule 7-26 mg by ity of 00:00: mouth 3 [place] (three) Medical times Branch daily. LYRICA 200 2017-0 Yes 200mg Take 200 [place] mg capsule 7-26 mg by ity of 00:00: mouth 3 [place] (three) Medical times Branch daily. LYRICA 200 2017-0 Yes 200mg Take 200 [place] mg capsule 7-26 mg by ity of 00:00: mouth 3 [place] (three) Medical times Branch daily. LYRICA 200 2017-0 Yes 200mg Take 200 [place] mg capsule 7-26 mg by ity of 00:00: mouth 3 [place] (three) Medical times Branch daily. LYRICA 200 2018-0 Yes 200mg Take 200 [place] mg capsule 7-26 mg by ity of 00:00: mouth 3 [place] (three) Medical times Branch daily. LYRICA 200 2017-0 Yes 200mg Take 200 [place] mg capsule 7-26 mg by ity of 00:00: mouth 3 [place] (three) Medical times Branch daily. LYRICA 200 2018-0 Yes 200mg Take 200 [place] mg capsule 7-26 mg by ity of 00:00: mouth (three) Medical times Branch daily. LYRICA 200 2018-0 Yes 200mg Take 200 [place] mg capsule 7-26 mg by ity of 00:00: mouth (three) Medical times Branch daily. LYRICA 200 2018-0 Yes 200mg Take 200 [place] mg capsule 7-26 mg by ity of 00:00: mouth (three) Medical times Branch daily. LYRICA 200 2018-0 Yes 200mg Take 200 Un alfonso mg capsule 7-26 mg by ity of 00:00: mouth (three) Medical times Branch daily. LYRICA 200 2018-0 Yes 200mg Take 200 Un alfonso mg capsule 7-26 mg by ity of 00:00: mouth (three) Medical times Branch daily. LYRICA 200 2018-0 Yes 200mg Take 200 Un alfonso mg capsule 7-26 mg by ity of 00:00: mouth (three) Medical times Branch daily. LYRICA 200 2017-0 Yes 200mg Take 200 Un alfonso mg capsule 7-26 mg by ity of 00:00: mouth (three) Medical times Branch daily. LYRICA 200 2018-0 Yes 200mg Take 200 Un alfonso mg capsule 7-26 mg by ity of 00:00: mouth (three) Medical times Branch daily. LYRICA 200 2018-0 Yes 200mg Take 200 Un alfonso mg capsule 7-26 mg by ity of 00:00: mouth (three) Medical times Branch daily. LYRICA 200 2018-0 Yes 200mg Take 200 Un alfonso mg capsule 7-26 mg by ity of 00:00: mouth (three) Medical times Branch daily. LYRICA 200 2018-0 Yes 200mg Take 200 Un alfonso mg capsule 7-26 mg by ity of 00:00: mouth (three) Medical times Branch daily. LYRICA 200 2018-0 Yes 200mg Take 200 Un alfonso mg capsule 7-26 mg by ity of 00:00: mouth (three) Medical times Branch daily. LYRICA 200 2018-0 Yes 200mg Take 200 Un alfonso mg capsule 7-26 mg by ity of 00:00: mouth 3 [place] 00 (three) Medical times Branch daily. LYRICA 200 Yes 200mg Take 200 Un alfonso mg capsule 7-26 mg by ity of 00:00: mouth 3 [place] 00 (three) Medical times Branch daily. LYRICA 200 Yes 200mg Take 200 Un alfonso mg capsule 7-26 mg by ity of 00:00: mouth 3 [place] 00 (three) Medical times Branch daily. LYRICA 200 2020- No 200mg Take 200 U nivers mg capsule 7-26 04-01 mg by ity of 00:00: 00:00 mouth 3 [place] 00 :00 (three) Medical times Branch daily. pregabalin 2019- No 1{tbl} Take 1 Un alfonso (LYRICA) 5-14 07-25 tablet by ity o f 200 mg 00:00: 00:00 mouth. [place] capsule 00 :00 Medical Branch PredniSONE PredniSONE Yes ZHEN TAPER Univers 20 MG Oral 20 MG Oral 1-18 KATELYN Christianson ity of Tablet Tablet 00:00: M.D. ns - TAKE [place] 00 3 PILLS, Physici BY MOUTH, ans DAILY X 5 DAYSTHEN 2 PILLS DAILY X 5 DAYSTHEN 1 PILL DAILY X 5 DAYS, UNTIL COMPLETE empaglifloz 2016-05 2019- No TK 1 T PO Univers in 06-03 07-24 QD ity of (JARDIANCE) 00:00: 00:00 [place] 10 mg Tab 00 :00 Medical Branch PredniSONE PredniSONE 2013-05 Yes RIN Take 3 [...] ity of Tablet Tablet [place] Physici ans Immunizations Ordered Filled Immunization Date Status Comments Sour e Immunization Name Name Influenza Virus 2021-04-12 Completed Universit y of Vaccine 00:00:00 [facility] [place] [facility] Influenza Virus 2019-04-22 Completed Universit y of Vaccine Quad .5 mL 00:00:00 [facility] 6+ MO Branch Influenza Virus 2019-04-22 Completed Universit y of Vaccine Quad .5 mL 00:00:00 [facility] 6+ MO Branch Influenza Virus 2019-04-22 Completed Universit y of Vaccine Quad .5 mL 00:00:00 [facility] 6+ MO Branch Influenza Virus 2019-04-22 Completed Universit y of Vaccine Quad .5 mL 00:00:00 [facility] 6+ MO Branch Influenza Virus 2019-04-22 Completed Universit y of Vaccine Quad .5 mL 00:00:00 [facility] 6+ MO Branch Influenza Virus 2019-04-22 Completed Universit y of Vaccine Quad .5 mL 00:00:00 [facility] 6+ MO Branch Influenza Virus 2019-04-22 Completed Universit y of Vaccine Quad .5 mL 00:00:00 [facility] 6+ MO Branch Influenza Virus 2019-04-22 Completed Universit y of Vaccine Quad .5 mL 00:00:00 [facility] 6+ MO Branch Influenza Virus 2019-04-22 Completed Universit y of Vaccine Quad .5 mL 00:00:00 [place] [facility] 6+ MO Branch Influenza Virus 2019-04-22 Completed Universit y of Vaccine Quad .5 mL 00:00:00 [place] [facility] IM 6+ MO Branch Influenza Virus 2019-04-22 Completed Universit y of Vaccine Quad .5 mL 00:00:00 [place] [facility] IM 6+ MO Branch Influenza Virus 2019-04-22 Completed Universit y of Vaccine Quad .5 mL 00:00:00 [place] [facility] IM 6+ MO Branch Influenza Virus 2019-04-22 Completed Universit y of Vaccine Quad .5 mL 00:00:00 [place] [facility] IM 6+ MO Branch Influenza Virus 2019-04-22 Completed Universit y of Vaccine Quad .5 mL 00:00:00 [place] [facility] IM 6+ MO Branch Influenza Virus 2019-04-22 Completed Universit y of Vaccine Quad .5 mL 00:00:00 [place] [facility] IM 6+ MO Branch Influenza Virus 2019-04-22 Completed Universit y of Vaccine Quad .5 mL 00:00:00 [place] [facility] IM 6+ MO Branch Influenza Virus 2019-04-22 Completed Universit y of Vaccine Quad .5 mL 00:00:00 [place] [facility] IM 6+ MO Branch Influenza Virus 2019-04-22 Completed Universit y of Vaccine Quad .5 mL 00:00:00 [place] [facility] IM 6+ MO Branch Influenza Virus 2019-04-22 Completed Universit y of Vaccine Quad .5 mL 00:00:00 [place] [facility] IM 6+ MO Branch Influenza Virus 2019-04-22 Completed Universit y of Vaccine Quad .5 mL 00:00:00 [place] [facility] IM 6+ MO Branch Influenza Virus 2019-04-22 Completed Universit y of Vaccine Quad .5 mL 00:00:00 [place] [facility] IM 6+ MO Branch Influenza Virus 2019-04-22 Completed Universit y of Vaccine Quad .5 mL 00:00:00 [place] [facility] IM 6+ MO Branch Influenza Virus 2019-04-22 Completed Universit y of Vaccine Quad .5 mL 00:00:00 [place] [facility] IM 6+ MO Branch Influenza Virus 2019-04-22 Completed Universit y of Vaccine Quad .5 mL 00:00:00 [place] [facility] IM 6+ MO Branch Influenza Virus 2019-04-22 Completed Universit y of Vaccine Quad .5 mL 00:00:00 [place] [facility] IM 6+ MO Branch Influenza Virus 2019-04-22 Completed Universit y of Vaccine Quad .5 mL 00:00:00 [place] [facility] IM 6+ MO Branch Influenza Virus 2019-04-22 Completed Universit y of Vaccine Quad .5 mL 00:00:00 [place] [facility] IM 6+ MO Branch Influenza Virus 2019-04-22 Completed Universit y of Vaccine Quad .5 mL 00:00:00 [place] [facility] IM 6+ MO Branch Influenza Virus 2019-04-22 Completed Universit y of Vaccine Quad .5 mL 00:00:00 [facility] IM 6+ MO Branch TDAP 2013-06-09 Completed University of 00:00:00 [facility] [place] [facility] Vital Signs Vital Name Observation Time Observation Value Comments Source Systolic blood 2018-12-30 19:40:00 145 mm[Hg] Univer sity of pressure [facility] [place] [facility] Diastolic blood 2018-12-30 19:40:00 86 mm[Hg] Unive rsity of pressure [facility] [place] [facility] Heart rate 2018-12-30 19:40:00 80 /min Universi ty of [facility] [place] [facility] Body temperature 2018-12-30 19:40:00 37.17 [facility] ersity of [facility] [place] [facility] Respiratory rate 2018-12-30 19:40:00 18 /min Univ ersity of [place] [facility] [place] Body height 2018-12-30 19:40:00 167.6 cm Universi ty of [place] [facility] [place] Body weight 2018-12-30 19:40:00 96.616 kg Universi ty of [place] [facility] [place] BMI 2018-12-30 19:40:00 34.38 kg/m2 Universi ty of [facility] [place] [facility] Oxygen saturation in 2018-12-30 19:40:00 98 /min room air University of Arterial blood by [facility] Pulse oximetry Branch Systolic blood 2018-12-04 21:00:00 123 mm[Hg] Univer sity of pressure [facility] [place] [facility] Diastolic blood 2018-12-04 21:00:00 59 mm[Hg] Unive rsity of pressure [place] [facility] [place] Heart rate 2018-12-04 21:00:00 57 /min Universi ty of [facility] [place] [facility] Body temperature 2018-12-04 21:00:00 36.67 Aras[facility] ersity of [place] [facility] Respiratory rate 2018-12-04 21:00:00 18 /min Univ ersity of [facility] [place] [facility] Oxygen saturation in 2018-12-04 21:00:00 99 /min University of Arterial blood by [place] [facility] Pulse oximetry Branch Body weight 2018-12-04 10:30:00 92.67 kg [facility] BMI 2018-12-04 10:30:00 32.97 kg/m2 [facility] Body height 2018-12-03 07:15:00 167.6 cm [facility] Procedures Procedure Date / Time Performing Clinician Source Performed CT HEAD WO CONTRAST 2021-07-26 20:37:00 Blessing Esquivel [facility] NOTICE OF PRIVACY 2021-07-26 20:17:06 Doctor Unassigned, No [facility] PRACTICES [facility] CONSENT/REFUSAL FOR 2021-07-26 20:16:51 [facility] ASSIGNMENT OF BENEFITS 2021-07-26 20:16:37 Doctor Unassigned, No [facility] ASSIGNMENT OF BENEFITS 2021-07-14 15:37:14 Doctor Unassigned, No [facility] EXTERNAL PROVIDER 2019-08-04 05:01:00 Doctor Unassigned, No [facility] RECORDS [facility] EXTERNAL PROVIDER 2018-12-12 05:01:00 Doctor Unassigned, No [facility] POCT GLUCOSE (AUTOMATED) 2018-12-04 22:09:00 [facility] ECHO ROUTINE W/DOPPLER 2018-12-04 20:04:25 Zofia Manley [facility] POCT GLUCOSE (AUTOMATED) 2018-12-04 16:50:00 [facility] POCT GLUCOSE (AUTOMATED) 2018-12-04 12:39:00 Emiliano Cheung [facility] MAGNESIUM 2018-12-04 07:50:00 RiosJorge A Hernandez [facility] TROPONIN I 2018-12-04 07:50:00 Jorge A Rao [facility] BASIC METABOLIC PANEL 2018-12-04 07:50:00 Jorge A Rao [facility] (NA, K, CL, CO2, Medical Branch GLUCOSE, BUN, CREATININE, CA) TROPONIN I 2018-12-04 02:44:00 Jorge A Rao [facility] POCT GLUCOSE (AUTOMATED) 2018-12-04 02:28:00 [facility] POCT GLUCOSE (AUTOMATED) 2018-12-03 21:04:00 [facility] POCT GLUCOSE (AUTOMATED) 2018-12-03 16:40:00 [facility] XR CHEST 1 VW 2018-12-03 14:47:12 Mae Lui [facility] POCT GLUCOSE (AUTOMATED) 2018-12-03 12:47:00 [facility] MAGNESIUM 2018-12-03 08:37:00 Audra Evans [facility] TROPONIN I 2018-12-03 08:37:[address] [facility] HEPATIC FUNCTION PANEL 2018-12-03 08:37:00 Audra Evans [facility] ([id number]) (ALB,T.PRO,BILI [facility] Branch T,BU/BC,ALT,AST,ALK PHOS) BASIC METABOLIC PANEL 2018-12-03 08:37:00 Audra Evans [facility] (NA, K, CL, CO2, Medical Branch GLUCOSE, BUN, CREATININE, CA) PROFILE / HEMOGRAM 2018-12-03 08:37:00 Audra Evans [facility] GLYCOSYLATED HEMOGLOBIN 2018-12-03 08:37:00 Audra Evans [facility] (A1C) [facility] PROTHROMBIN TIME / INR 2018-12-03 08:37:00 Audra Evans [facility] MRSA / MSSA SCREEN BY 2018-12-03 08:26:00 Audra Evans [facility] PCR, [facility] TROPONIN I 2018-12-03 03:47:00 [facility] POCT GLUCOSE (AUTOMATED) 2018-12-03 01:31:00 [facility] TROPONIN I 2018-12-02 22:55:[facility]) 2018-12-02 20:45:00 [facility] POCT GLUCOSE (AUTOMATED) 2018-12-02 16:48:00 [facility] TROPONIN I 2018-12-02 16:05:00 Robert Hanley [facility] ECHO ROUTINE W/DOPPLER 2018-12-02 14:00:25 [facility] PO[facility] GLUCOSE (AUTOMATED) 2018-12-02 12:07:00 [facility] TROPONIN I 2018-12-02 11:18:00 Dante, [facility] LIPID PANEL 2018-12-02 11:18:00 Dante, [facility] ([id number])(TOTAL Medical Branch CHOLESTEROL, TRIGLYCERIDES, HDL) SEDIMENTATION RATE 2018-12-02 11:18:00 [facility] PROCALCITONIN 2018-12-02 11:18:00 Dante [facility] PHOSPHORUS 2018-12-02 06:18:00 Dante [facility] MAGNESIUM 2018-12-02 06:18:00 Dante, [facility] TROPONIN I 2018-12-02 06:18:00 Dante, [facility] BASIC METABOLIC PANEL 2018-12-02 06:18:00 DanteMary umaña [facility] (NA, K, CL, CO2, Medical Branch GLUCOSE, BUN, CREATININE, CA) CBC WITH DIFFERENTIAL 2018-12-02 06:18:00 [facility] 2018-12-02 05:01:00 Doctor Unassigned, No Uni [facility] CT Spine lumbar 2017-05-30 00:00:00 [facility] myelogram [id number] Physicians Encounters Start End Encounter Admission Attending Care Care Encounter Source Date/Time Date/Time Type Type Clinicians Facility Department ID 2021-07-28 2021-07-28 Outpatient R MELINA CARR [facility] [id number] [facility] 13:00:00 13:00:00 [facility] [id number] [facility] 2021-07-28 2021-07-28 Outpatient R BRUNO MELINA [facility] [id number] Univers 13:00:00 13:00:00 PETRONA CARRNITA [facility] 2021-07-26 2021-07-26 Outpatient R FARZANA, [facility] [id number] Univers 15:20:22 23:59:00 BLESSING [facility] 2021-07-26 2021-07-26 [facility] [id number] Univers 15:00:00 23:59:00 Encounter Blessing CARLOS [id number] [facility] [id number] [facility] [id number] [address] 2021-07-26 2021-07-26 [facility] [id number] Univers 00:00:00 00:00:00 BLESSING [id number] [facility] 2021-07-24 2021-07-24 Outpatient R FARZANA, [facility] [id number] Univers 00:00:00 00:00:00 BLESSING [id number] [facility] 2021-07-21 2021-07-21 Outpatient R FARZANA, [facility] [id number] Univers 14:30:00 15:16:04 BLESSING [facility] 2021-07-21 2021-07-21 Outpatient R FARZANA [facility] [id number] Univers 14:30:00 14:30:00 BLESSING [id number] [facility] 2021-07-19 2021-07-19 Outpatient R FARZANA, [facility] [id number] Univers 09:00:00 09:00:00 BLESSING [id number] [facility] 2021-07-19 2021-07-19 Outpatient R FARZANA, [facility] [id number] Univers 09:00:00 09:00:00 BLESSING [facility] 2021-07-14 2021-07-14 Outpatient R FARZANA [facility] [id number] Univers 11:30:00 11:30:00 BLESSING [id number] [facility] 2021-07-14 2021-07-14 Outpatient R FARZANA [facility] [id number] Univers 10:00:00 11:07:33 BLESSING [facility] 2021-07-14 2021-07-14 Orders Doctor ALEM [id number] Univers 00:00:00 00:00:00 Only Unassigned, JOSESITO [id number] ity of [facility] [id number] Adrien as [id number] [address] 2021-07-12 2021-07-12 [facility] [id number] Univers 10:00:00 10:00:00 JUVE [id number] [facility] 2021-07-12 2021-07-12 Outpatient [facility] [id number] Univers 10:00:00 10:00:00 JUVE [facility] 2020-12-06 2020-12-06 Outpatient PERLA BLOCK [id number] Perla 10:45:00 10:45:00 ELLIOT obrien 2020-07-30 2020-07-30 Laboratory Lab, [employer] [facility] I [facility] 1.2. [id number] Univers 16:14:44 16:34:44 Only Jeannie Cul[facility] [id number] ity [facility] [id number] Adrien as Professio [phone] [address] Office [address] 2020-07-30 2020-07-30 Outpatient R [facility] [id number] Univers 16:00:00 16:00:00 [id number] [facility] 2020-07-30 2020-07-30 [facility] [id number] Univers 16:00:00 16:00:00 [facility] 2020-07-28 2020-07-28 Patient Abdon [facility] [id number] Univers 00:00:00 00:00:00 Outreach Joel PRIMARY [id number] i ty of [place] [id number] [id number] Id dical 388 Branch 2020-04-04 2020-04-04 [facility] 1.2.840.114 [id number] Univers 00:00:00 00:00:00 Leandro Deras PRIMARY [id number] ity of [place] [id number] [id number] Me dical 389 Branch 2020-04-04 2020-04-04 [facility] [id number] 00:00:00 00:00:00 Leandro Deras PRIMARY [id number] CARE [id number] PAVILLION [id number] 389 2020-03-18 2020-03-18 Outpatient FERGUSON_JO MEHOP [facility] [id number] 02:21:00 02:21:00 HN [facility]6 [facility] 2020-03-14 2020-03-14 Outpatient FERGUSON_JO MEHOP [facility] [id number] 04:45:00 04:45:00 HN 1102 [facility] 2020-02-29 2020-02-29 Outpatient Sofia [facility] [id number] Univers 08:45:00 08:45:00 ARELY [id number] cony ramirez [facility] [place] [facility] 2020-02-29 2020-02-29 Outpatient Sofia [facility] [id number] Univers 08:45:00 08:45:00 ARELY itjoie o james [facility] [place] [facility] 2020-02-26 2020-02-26 Outpatient FERGUSON_JO MEHOP [facility] [id number] 09:48:00 09:48:00 HN 1016 [facility] 2020-02-25 2020-02-25 Outpatient FERGUSON_JO MEHOP [facility] [id number] 01:22:00 01:22:00 HN 1015 [facility] 2020-02-17 2020-02-17 Outpatient R TACO, [facility] [id number] Univers 11:00:00 11:00:00 TRELL ity [facility] 2020-02-17 2020-02-17 Outpatient R SEAN DEWEY [facility] [id number] Univers 11:00:00 11:00:00 ity [facility] 2019-11-20 2019-11-20 Telephone [facility] [id number] Univers 00:00:00 00:00:00 Leandro Deras PRIMARY [id number] ity [id number] [id number] [address] 2019-11-20 2019-11-20 Telephone [facility] [id number] 00:00:00 00:00:00 Leandro Braeden PRIMARY [id number] CARE [id number] PAVILLION [id number] [facility] 2019-11-13 2019-11-13 [facility] [id number] [facility] 00:00:00 00:00:00 Leandro Braeden PRIMARY [id number] ity [id number] [id number] [address] 2019-11-13 2019-11-13 [facility] [id number] 00:00:00 00:00:00 Leandro Braeden PRIMARY [id number] CARE [id number] PAVILLION [id number] 389 2019-11-04 2019-11-04 Outpatient R [facility] [id number] Univers 10:40:00 10:40:00 [id number] ity [facility] 2019-10-28 2019-10-28 Outpatient R [facility] [id number] Univers 10:40:00 10:40:00 [id number] ity [facility] 2019-10-28 2019-10-28 Outpatient R UNKNOWN, [facility] [id number] Univers 10:40:00 10:40:00 ATTENDING ity of [facility] [place] [facility] 2019-09-29 2019-09-29 Patient Doctor [facility] [id number] Univers 00:00:00 00:00:00 Secure Msg Unassigned, PRIMARY [id number] ity of [place] [id number] [id number] Id dical [address] [place] 2019-09-29 2019-09-29 Patient Doctor [facility] 1.2.840.114 [id number] 00:00:00 00:00:00 Secure Msg Unassigned, PRIMARY [id number] [place] CARE [id number] PAVILLION [id number] 390 2019-09-15 2019-09-15 Telephone eJsse [facility] [id number] Univers 00:00:00 00:00:00 Leandro Deras PRIMARY [id number] ity [place] [id number] [id number] Id dictn [address] [place] 2019-09-15 2019-09-15 Telephone Jesse [facility] [id number] 00:00:00 00:00:00 Leandro Deras PRIMARY [id number] CARE [id number] PAVILLION [id number] 389 2019-09-10 2019-09-10 Licensed Sales Assistant [facility] 1.2.840.114 [id number] Univers 12:34:34 12:44:34 Visit Samir Conner MULTISPEC 350.1.13.10 ity of [place]2.[place]2.[place] [id number] [facility] AND JAIRO [facility] 2019-09-10 2019-09-10 Licensed Sales Assistant Vt-Lab [facility] 1.2.840.114 [id number] 12:34:34 12:44:34 Visit MULTISPEC [id number] IALTY [id number] CENTER [id number] AND JAIRO [facility] 2019-09-10 2019-09-10 Outpatient R [facility] [id number] Univers 12:40:00 12:40:00 ity [facility] 2019-09-10 2019-09-10 Outpatient R SAMIR CONNER [facility] [id number] Univers 12:40:00 12:40:00 ity of [facility] [place] [facility] 2019-08-18 2019-08-18 Patient Jesse [facility] 1.2.840.114 [id number] Univers 00:00:00 00:00:00 Secure Msg Leandro Deras PRIMARY [id number] ity of [place] [id number] [id number] Id dical [address] [place] 2019-08-18 2019-08-18 Patient Jesse [facility] [id number] 00:00:00 00:00:00 Secure Msg Leandro Deras PRIMARY [id number] CARE [id number] PAVILLION [id number] 390 2019-08-17 2019-08-17 Patient Doctor [facility] 1.2.840.114 [id number] Univers 00:00:00 00:00:00 Secure Msg Unassigned, PRIMARY 350.1.13.10 ity [place] [id number] [id number] Id dical [address] [place] 2019-08-17 2019-08-17 Patient Doctor [facility] 1.2.840.114 [id number] 00:00:00 00:00:00 Secure Msg Unassigned, PRIMARY 350.1.13.10 [place] CARE [id number] PAVILLION [id number] 2019-08-14 2019-08-14 Outpatient R [facility] [id number] Univers 12:10:00 12:10:00 ity of [facility] [place] [facility] 2019-08-14 2019-08-14 Outpatient R UNKNOWN, [facility] [id number] Univers 12:10:00 12:10:00 ATTENDING ity of [facility] [place] [facility] 2019-08-14 2019-08-14 Licensed Sales Assistant Pcp-Lab [facility] 1.2.840.114 [id number] Univers 11:02:02 11:12:02 Visit Unknown, Attending PRIMARY 350.1.13.10 ity of Alberto Connera CARE 4.2.7.2.686 T excorina PAVILLION [id number] [facility] [address] [place] 2019-08-14 2019-08-14 Licensed Sales Assistant Pcp-Lab [facility] 1.2.840.114 [id number] 11:02:02 11:12:02 Visit PRIMARY 350.1.13.10 CARE [id number] PAVILLION [id number] 2019-08-12 2019-08-12 Telemedic Salvatore Ambriz [facility] 1.2.840 .114 [id number] Univers 14:32:03 15:02:03 ne Visit Unknown, Attending PRIMARY 350.1.13.1 0 ity of [id number] [id number] [facility] [address] 2019-08-12 2019-08-12 [facility] 1.2.840.114 [id number] 14:32:03 15:02:03 ne Visit Salvatore PRIMARY 350.1.13.10 CARE [id number] PAVILLION [id number] 2019-08-12 2019-08-12 Outpatient [facility] [id number] Univers 14:50:00 14:50:00 [id number] [facility] 2019-08-12 2019-08-12 Outpatient R UNKNOWN, [facility] [id number] Univers 14:50:00 14:50:00 [facility] 2019-08-12 2019-08-12 Telephone [facility] [id number] Univers 00:00:00 00:00:00 Leandro Deras PRIMARY 350.1.13.10 ity [place] [id number] [facility] [address] 2019-08-12 2019-08-12 Telephone [facility] [id number] 00:00:00 00:00:00 Leandro Deras PRIMARY 350.1.13.10 CARE [id number] PAVILLION [id number] 389 2019-08-07 2019-08-10 [facility] 1.2.840.114 [id number] Univers 08:31:45 15:00:40 ne Visit Kay [facility] 350.1.13.10 ity of [place] 4.2.7.2.686 [facility] [phone] [facility] [place] [address] [address] [facility] 2019-08-07 2019-08-10 [facility]ici [facility] 1.2.840.114 [id number] 08:31:45 15:00:40 ne Visit Kay DARBYPEC 350.1.13.10 [place]AL[place] 4.2.7.2.686 [place] [phone] [place] [address] [facility] 2019-08-07 2019-08-07 Outpatient R RACHELLE [facility] [id number] Univers 10:30:00 10:30:00 KAY [id number] cony alonso [facility] 2019-08-07 2019-08-07 Outpatient R RACHELLE [facility] [id number] Univers 10:30:00 10:30:00 KAY alonso [facility] 2019-08-06 2019-08-06 Outpatient R RACHELLE [facility] [id number] Univers 10:45:00 10:45:00 KAY [id number] cony o james [facility] 2019-08-04 2019-08-04 Outpatient R ELIZABETH [facility] [id number] Univers 11:00:00 11:00:00 Judit MOSS [facility] 2019-08-04 2019-08-04 Telemedici Johan Alexander [facility]ERS[facility] 1.2.84 0.114 [id number] Univers 07:35:13 08:05:13 ne Visit Trell Villagomez Y HEALTH 350.1.13 .10 ity of Mame Pineda [facility] 4.2.7.2.68 6 [place] [phone] [facility] [address] 2019-08-04 2019-08-04 Telephone MAYTE AlexanderIT 1.2.840.114 [id number] Univers 00:00:00 00:00:00 Johan Y HEALTH 350.1.13.10 i ty of [place] [phone] [facility] [address] 2019-08-04 2019-08-04 Orders Doctor ALEM 1.2.840.114 [id number] Univers 00:00:00 00:00:00 Only Unassigned, JOSESITO 350.1.13.10 ity of [place] [facility] 4.2.7.2.686 Adrien as [phone] [facility] [address] 2019-08-03 2019-08-03 RefJD [facility] 1.2.840.114 [id number] Univers 00:00:00 00:00:00 Mostafa MULTISPEC 350.1.13.10 ity of [place] IALTY 4.2.7.2.686 [facility] [phone] [facility] AND [address] DIABETES CLINIC 2019-08-03 2019-08-03 RefJD [facility] 1.2.840.114 [id number] Univers 00:00:00 00:00:00 Mostafa MULTISPEC 350.1.13.10 ity of [place] IALTY 4.2.7.2.686 [facility] [phone] [facility] AND [address] DIABETES CLINIC 2019-08-03 2019-08-03 Telephone [facility] [id number] Univers 00:00:00 00:00:00 Leandro Deras PRIMARY 350.1.13.10 it[place] [phone] Id dical [address] 2019-08-03 2019-08-03 Telephone [facility] 1.2.840.114 [id number] Univers 00:00:00 00:00:00 Kay Francis MULTISPEC 350.1.13.10 ity of [place] [id number] [facility] AND [address] DIABETES CLINIC 2019-06-05 2019-06-05 Telephone Martha HAIDER 1.2.840.11 [id number] Univers 00:00:00 00:00:00 henok, Juan Y 350.1.13.10 ity of NATIONAL 4.2.7.2.686 Adrien as [phone] [facility] [address] 2019-05-19 2019-05-19 Clinic Martha [facility] 1.2.840.114 [id number] Univers 00:00:00 00:00:00 Assessment henok, Juan Y 350.1.13.10 ity of NATIONAL 4.2.7.2.686 Adrien as BANK [phone] [facility] [address] 2019-03-05 2019-03-05 Outpatient [id number] [place] 03:44:00 03:44:00 428 Medical Group 2019-01-26 2019-01-26 Telephone Jesse [facility] 1.2.771.178 [id number] Univers 00:00:00 00:00:00 Leandro Deras PRIMARY 350.1.13.10 [place] [phone] Id dical [address] 2018-12-30 2018-12-30 Office Klarissa Elverzuleyka Santiago [facility] 1.2 .840.114 [id number] Univers 14:33:52 16:12:24 Visit Unknown, Attending PRIMARY 350.1.13.10 ity of Sean Dewey CARE 4.2.7.2.686 [facility] [phone] Id dical [address] 2018-12-12 2018-12-12 Orders Doctor ALEM 1.2.840.114 [id number] Univers 00:00:00 00:00:00 Only Unassigned, JOSESITO 350.1.13.10 ity of [place] [facility] 4.2.7.2.686 Adrien as [phone] [facility] [address] 2018-12-05 2018-12-05 Transition Blaine Longo 1.2.840.114 [id number] Univers 00:00:00 00:00:00 of Care Nicky Frankely 350.1.13.10 it y of [place] [phone] [facility] [address] 2018-12-02 2018-12-04 Hospital Mary Howell 1.2.840.114 [id number] Univers 00:29:00 19:45:00 Encounter ToritoMelanyOxfordMikey holden 35 0.1.13.10 ity of Emiliano Cheung [facility] 4.2.7.2.686 [place] [phone] [facility] [address] 2018-12-04 2018-12-04 Telephone Alvarez [facility] 1.2.840.114 [id number] Univers 00:00:00 00:00:00 [facility] Paperwoven 350.1.13.10 it y of [place] 4.2.7.2.686 [facility] [phone] [facility] Primary & [address] Specialty Care 2018-12-02 2018-12-02 Orders Doctor ALEM 1.2.840.114 [id number] Univers 00:00:00 00:00:00 Only Unassigned, JOSESITO 350.1.13.10 ity of [place] [facility] 4.2.7.2.[address] [facility] [phone] [facility] [address] 2017-07-31 2017-07-31 Emergency E [facility] MED [id number] Medical 19:16:00 19:16:00 [facility] 2017-05-30 2017-05-30 Appointmen AURELIA ZEPEDA Orthopedics 3 [id number] [facility] 13:00:00 13:00:00 t; Jinny FONTAINE it y of [place] ZEPEDA Physici M.D. ans 2017-04-23 2017-04-23 Appointmen AURELIA ZEPEDA [facility] [id number] Univers 09:15:00 09:15:00 t; Jinny FONTAINE it y of [place] ZEPEDA Physici M.D. ans Results Test Description Test Time Test Comments Results Result Comments Source POCT GLUCOSE (AUTOMATED) 2018-12-04 22:26:00 Test Item Value Reference Range Interpretation Comme nts POCT GLU (test code = 4603015725) 103 mg/dL 70-110 Lab Interpretation (test code = 78306-8) Normal [facility]2018-12-04 16:59:00 Test Item Value Reference Range Interpretation Comments POCT GLU (test code = 84 mg/dL 70-110 3742976212) SHAWN (test code = SHAWN) Notified Provider Lab Interpretation (test Normal code = 66002-1) [facility]2018-12-04 12:55:00 Test Item Value Reference Range Interpretation Comments POCT GLU (test code = 87 mg/dL 70-110 5981391131) SHAWN (test code = SHAWN) Notified Provider Lab Interpretation (test Normal code = 88999-8) [facility] [id number] 09:24:00 Test Item Value Reference Range Interpretation Comments TROPONIN I (test 0.002 ng/mL See_Comment [Automated code = 8547293873) message] The system which generated this result transmitted reference range : <=0.034. The reference range was not used to interpret this result as normal/abnormal . SHAWN (test code = Equal or Less than SHAWN) 0.034 ng/ml---Normal?Not e: Cardiac troponin begins to rise 3-4 hours after the onset of ischemia. Repeat in 4-6 hours if the sample was drawn within 3-4 hours of the onset of the symptom and found normal. Between 0.035 and 0.120 ng/mL--- Borderline. Questionable myocardial injury or necrosis?Note: Serial measurement may be necessary to confirm or exclude the diagnosis of myocardial injury or necrosis; Clinical correlation (symptoms, EKGs, imaging studies, and others) required; Repeat in 4-6 hours if clinically indicated.? Equal or Higher than 0.121 ng/mL---Abnormal. Myocardial Injury or Necrosis Likely? Biotin has been reported to cause a negative bias, interpret results relative to patient's use of biotin.? ? Lab Interpretation Normal (test code = 55458-1) [facility] (NA, K, CL, CO2, GLUCOSE, BUN, CREATININE, CA)2018-12-04 09:13:00 Test Item Value Reference Range Interpretation Comments NA (test code = 141 mmol/L 135-145 9577314236) K (test code = 3.7 mmol/L 3.5-5 8872415687) CL (test code = 108 mmol/L 98-108 2890367248) CO2 TOTAL (test code = 25 mmol/L 23-31 1245643067) AGAP (test code = 2-16 4689136519) BUN (test code = 10 mg/dL 7-23 5946811305) GLUCOSE (test code = 97 mg/dL 70-110 9313130878) CREATININE (test code 0.68 mg/dL 0.6-1.25 = 2706848434) CALCIUM (test code = 8.8 mg/dL 8.6-10.6 2402602579) eGFR Calculation mL/min/1.73m2 (Non-) (test code = 7916089758) eGFR Calculation mL/min/1.73m2 () (test code = 1700790031) SHAWN (test code = SHAWN) Association of Glomerular Filtration Rate (GFR) and Staging of Kidney Disease*+ ---------+ --------+ +| GFR (mL/min/1.73 m2)?| With Kidney Damage?|?Without Kidney Damage+ -------+ ------+ ---------+|?>90?|?Stage one?|? Normal?+ --------+ -------+ +|?60-89?|?St age two?|? Decreased GFR? + -+ + ---+|?30-59?|?Stage three?|? Stage three? + -+ + ---+|?15-29?|?Stage four? |? Stage four?+ ------+ -----+ --------+|?<15 (or dialysis)?|?Stage five? |? Stage five?+ ------+ -----+ --------+*Each stage assumes the associated GFR level has been in effect for at least three months.?Stages 1 to 5, with or without kidney disease, indicate chronic kidney disease.Notes: Determination of stages one and two (with eGFR >59mL/min/1.73 m2) requires estimation of kidney damage for at least three months as defined by structural or functional abnormalities of the kidney, manifested by either:Pathological abnormalities or Markers of kidney damage (including abnormalities in the composition of the blood or urine or abnormalities in imaging tests). [facility] 09:13:00 Test Item Value Reference Range Interpretation Comments MAGNESIUM (test code = 1937510469) 2.1 mg/dL 1.7-2.4 Lab Interpretation (test code = Normal 49347-4) [facility] [id number] 03:18:00 Test Item Value Reference Range Interpretation Comments TROPONIN I (test 0.003 ng/mL See_Comment [Automated code = 1951115820) message] The system which generated this result transmitted reference range : <=0.034. The reference range was not used to interpret this result as normal/abnormal . SHAWN (test code = Equal or Less than SHAWN) 0.034 ng/ml---Normal?Not e: Cardiac troponin begins to rise 3-4 hours after the onset of ischemia. Repeat in 4-6 hours if the sample was drawn within 3-4 hours of the onset of the symptom and found normal. Between 0.035 and 0.120 ng/mL--- Borderline. Questionable myocardial injury or necrosis?Note: Serial measurement may be necessary to confirm or exclude the diagnosis of myocardial injury or necrosis; Clinical correlation (symptoms, EKGs, imaging studies, and others) required; Repeat in 4-6 hours if clinically indicated.? Equal or Higher than 0.121 ng/mL---Abnormal. Myocardial Injury or Necrosis Likely? Biotin has been reported to cause a negative bias, interpret results relative to patient's use of biotin.?? ? Lab Interpretation Normal (test code = 59612-0) [facility] GLUCOSE (AUTOMATED)2018-12-04 02:29:00 Test Item Value Reference Range Interpretation Comments POCT GLU (test code = 9564630126) 106 mg/dL 70-110 Lab Interpretation (test code = Normal 52231-2) [facility] GLUCOSE (AUTOMATED)2018-12-03 21:13:00 Test Item Value Reference Range Interpretation Comments POCT GLU (test code = 4245739478) 108 mg/dL 70-110 Lab Interpretation (test code = Normal 10706-1) [facility] GLUCOSE (AUTOMATED)2018-12-03 16:41:00 Test Item Value Reference Range Interpretation Comments POCT GLU (test code = 6608957829) 123 mg/dL 70-110 H Lab Interpretation (test code = Abnormal 79365-2) [facility]SA / MSSA Screen by Vanita [id number] 16:21:00 Test Item Value Reference Range Interpretation Comments MSSA Screen by Vanita PICHARDO (test code Negative Negative = 89695-1) MRSA/MSSA Positive? (test code = No No 5878021047) Lab Interpretation (test code = Normal 18679-9) [facility] Hospital[facility] CHEST 1 [id number] 15:04:55* * * * * * * * ORIGINAL REPORT * * * * * * * *EXAM: XR CHEST 1 VW HISTORY: chest pain COMPARISON: None. FINDINGS: The heart is upper limit of normal in size or slightly enlarged to theleft, probably the latter. The lungs are moderately well expanded andmildly congested but otherwise clear. A spinal stimulator is superimposedupon the lower thoracic spine.[facility], Radiant Results Inft User - 12/03/2018 10:05 AM CDT* * * * * * * * ORIGINAL REPORT * * * * * * * *EXAM: XR CHEST 1 VWHISTORY: chest pain COMPARISON: None.FINDINGS:The heart is upper limit of normal in size or slightly enlarged to theleft, probably the latter. The lungs are moderately well expanded andmildly congested but otherwise clear. A s jose stimulator is superimposedupon the lower thoracic spine.[facility])2018-12-03 12:48:00 Test Item Value Reference Range Interpretation Comments POCT GLU (test code = 9550080052) 93 mg/dL 70-110 Lab Interpretation (test code = Normal 26145-4) [facility] HospitalGLYCOSYLATED HEMOGLOBIN (A1C)2018-12-03 10:52:00 Test Item Value Reference Range Interpretation Comments HGB A1C (test code = 4548-4) 5.0 % 4-6 Lab Interpretation (test code = Normal 38012-2) [facility] HospitalHEPATIC FUNCTION PANEL (86993) (ALB,T.PRO,BILI T,BU/BC,ALT,AST,ALK PHOS)2018-12-03 09:36:00 Test Item Value Reference Range Interpretation Comments TOTAL BILI (test code = 0.8 mg/dL 0.1-1.9 6695303960) BILI UNCON (test code = 0.4 mg/dL 0.1-1.4 6932038991) BILI CONJ (test code = 0.0 mg/dL 0-0.3 6292584268) T PROTEIN (test code = 6.9 g/dL 6.3-8.2 9314851453) ALBUMIN (test code = 3.5 g/dL 3.5-5 0937840038) ALK PHOS (test code = 73 U/L 34-122 Slight hemolysis 4038355415) ALT(SGPT) (test code = 10 U/L 9-51 Sligh t hemolysis 1015459011) AST(SGOT) (test code = 34 U/L 13-40 Sligh t hemolysis 7394141643) Lab Interpretation (test Normal code = 48255-8) [facility] (NA, K, CL, CO2, GLUCOSE, BUN, CREATININE, CA)2018-12-03 09:27:00 Test Item Value Reference Range Interpretation Comments NA (test code = 138 mmol/L 135-145 9495951972) K (test code = 3.7 mmol/L 3.5-5 Slight 0630099243) hemolysis CL (test code = 105 mmol/L 98-108 3873651774) CO2 TOTAL (test code 25 mmol/L 23-31 = 8119433592) AGAP (test code = 2-16 9655087756) BUN (test code = 10 mg/dL 7-23 Slight 1065097049) hemolysis GLUCOSE (test code = 113 mg/dL 70-110 H 2114200193) CREATININE (test code 0.80 mg/dL 0.6-1.25 = 0033608284) CALCIUM (test code = 8.3 mg/dL 8.6-10.6 L 2329867866) eGFR Calculation mL/min/1.73m2 (Non-) (test code = 1779867749) eGFR Calculation mL/min/1.73m2 () (test code = 4614080656) SHAWN (test code = SHAWN) Association of Glomerular Filtration Rate (GFR) and Staging of Kidney Disease*+ +----- +-- ----+| GFR (mL/min/1.73 m2)?| With Kidney Damage?|?Without Kidney Damage+ +------- +---- --+|?>90?|?Stage one?|? Normal?+ +------ +--- ---+|?60-89?|?Stage two?|? Decreased GFR? + -----+ --------+ +|?3 0-59?|?Stage three?|? Stage three? + -----+ --------+ +|?1 5-29?|?Stage four? |? Stage four?+ +-------- +----- -+|?<15 (or dialysis)?|?Stage five? |? Stage five?+ +-------- +----- -+*Each stage assumes the associated GFR level has been in effect for at least three months.?Stages 1 to 5, with or without kidney disease, indicate chronic kidney disease.Notes: Determination of stages one and two (with eGFR >59mL/min/1.73 m2) requires estimation of kidney damage for at least three months as defined by structural or functional abnormalities of the kidney, manifested by either:Pathological abnormalities or Markers of kidney damage (including abnormalities in the composition of the blood or urine or abnormalities in imaging tests). Lab Interpretation Abnormal (test code = 33416-4) [facility]2019-07-24 09:27:00 Test Item Value Reference Range Interpretation Comments MAGNESIUM (test code = 4494631722) 2.1 mg/dL 1.7-2.4 Lab Interpretation (test code = Normal 88353-8) [facility] [id number] 09:22:00 Test Item Value Reference Range Interpretation Comments TROPONIN I (test 0.003 ng/mL See_Comment [Automated code = 6227378029) message] The system which generated this result transmitted reference range : <=0.034. The reference range was not used to interpret this result as normal/abnormal . SHAWN (test code = Equal or Less than SHAWN) 0.034 ng/ml---Normal?Not e: Cardiac troponin begins to rise 3-4 hours after the onset of ischemia. Repeat in 4-6 hours if the sample was drawn within 3-4 hours of the onset of the symptom and found normal. Between 0.035 and 0.120 ng/mL--- Borderline. Questionable myocardial injury or necrosis?Note: Serial measurement may be necessary to confirm or exclude the diagnosis of myocardial injury or necrosis; Clinical correlation (symptoms, EKGs, imaging studies, and others) required; Repeat in 4-6 hours if clinically indicated.? Equal or Higher than 0.121 ng/mL---Abnormal. Myocardial Injury or Necrosis Likely? Biotin has been reported to cause a negative bias, interpret results relative to patient's use of biotin.? ?? Lab Interpretation Normal (test code = 53058-2) [facility] HospitalPROTHROMBIN TIME / [id number] 08:52:00 Test Item Value Reference Range Interpretation Comments PROTIME PATIENT (test See_Comment H [Auto mated message] code = 5964-2) The system wh ich generated this result transmitted ref erence range: 10.1 - 1 2.6 Seconds. The reference range was not used to int erpret this result as normal/abnormal . INR (test code = 6301-6) Nor mal INR <1.1; Warfarin Therap eutic range 2.0 to 3. 0 or 2.5 to 3.5, dep ending upon the indica tions. Lab Interpretation (test Abnormal code = 46755-0) [facility] HospitalPROFILE / [id number] 08:50:00 Test Item Value Reference Range Interpretation Comments WBC (test code = See_Comment [Automated message] The 6690-2) system which ge nerated this result tra nsmitted reference range : 4.20 - 10.70 10*3/?L. The reference range was not used to interpr et this result as normal/abnormal . RBC (test code = See_Comment [Automated message] The 789-8) system which nerated this result tra nsmitted reference range : 4.26 - 5.52 10*6/?L. T he reference range was not used to interpr et this result as normal/abnormal . HGB (test code = 14.1 g/dL 12.2-16.4 718-7) HCT (test code = 42.5 % 38.4-49.3 4544-3) MCH (test code = 29.7 pg 26.1-32.7 785-6) MCV (test code = 89.5 fL 81.7-95.6 787-2) MCHC (test code = 33.2 g/dL 31.2-35 786-4) PLT (test code = See_Comment [Automated message] The 777-3) system which nerated this result tra nsmitted reference range : 150 - 328 10*3/?L. Th e reference range was not used to interpr et this result as normal/abnormal . MPV (test code = 12.6 fL 9.8-13 25775-0) RDW-CV (test code = 13.2 % 12.1-15.4 788-0) RDW-SD (test code = 43.4 fL 38.5-51.6 19938-3) NRBC x10^3 (test <0.01 See_Comment [Automated message] The code = 8954400978) system [facility] generated this result tra nsmitted reference range : 10*3/?L. The reference r bhavna was not used to int erpret this result as normal/abnormal . NRBC/100 WBC (test See_Comment [Automat ed message] The code = 0317442104) system wh ich generated this result tra nsmitted reference range : 0.0 - 10.0 /100 WBCs. The reference range was not used to interpr et this result as normal/abnormal . IPF % (test code = 1.2-10.7 5616178025) [facility] [id number] 04:27:00 Test Item Value Reference Range Interpretation Comments TROPONIN I (test 0.002 ng/mL See_Comment [Automated code = 2912298939) message] The system which generated this result transmitted reference range : <=0.034. The reference range was not used to interpret this result as normal/abnormal . SHAWN (test code = Equal or Less than SHAWN) 0.034 ng/ml---Normal?Not e: Cardiac troponin begins to rise 3-4 hours after the onset of ischemia. Repeat in 4-6 hours if the sample was drawn within 3-4 hours of the onset of the symptom and found normal. Between 0.035 and 0.120 ng/mL--- Borderline. Questionable myocardial injury or necrosis?Note: Serial measurement may be necessary to confirm or exclude the diagnosis of myocardial injury or necrosis; Clinical correlation (symptoms, EKGs, imaging studies, and others) required; Repeat in 4-6 hours if clinically indicated.? Equal or Higher than 0.121 ng/mL---Abnormal. Myocardial Injury or Necrosis Likely? Biotin has been reported to cause a negative bias, interpret results relative to patient's use of biotin.? ? Lab Interpretation Normal (test code = 06992-6) [facility] GLUCOSE (AUTOMATED)2018-12-03 01:32:00 Test Item Value Reference Range Interpretation Comments POCT GLU (test code = 7361499813) 117 mg/dL 70-110 H Lab Interpretation (test code = Abnormal 36811-3) [facility] [id number] 23:37:00 Test Item Value Reference Range Interpretation Comments TROPONIN I (test 0.001 ng/mL See_Comment [Automated code = 5047279297) message] The system which generated this result transmitted reference range : <=0.034. The reference range was not used to interpret this result as normal/abnormal . SHAWN (test code = Equal or Less than SHAWN) 0.034 ng/ml---Normal?Not e: Cardiac troponin begins to rise 3-4 hours after the onset of ischemia. Repeat in 4-6 hours if the sample was drawn within 3-4 hours of the onset of the symptom and found normal. Between 0.035 and 0.120 ng/mL--- Borderline. Questionable myocardial injury or necrosis?Note: Serial measurement may be necessary to confirm or exclude the diagnosis of myocardial injury or necrosis; Clinical correlation (symptoms, EKGs, imaging studies, and others) required; Repeat in 4-6 hours if clinically indicated.? Equal or Higher than 0.121 ng/mL---Abnormal. Myocardial Injury or Necrosis Likely? Biotin has been reported to cause a negative bias, interpret results relative to patient's use of biotin.? ? Lab Interpretation Normal (test code = 47515-5) [facility]2018-12-02 20:56:00 Test Item Value Reference Range Interpretation Comments POCT GLU (test code = 4224712434) 120 mg/dL 70-110 H Lab Interpretation (test code = Abnormal 84943-0) [facility] HospitalPROCALCITONIN2019-07-23 17:57:00 Test Item Value Reference Range Interpretation Comments Procalcitonin (test 0.16 ng/mL <0.07 H code = 8275892486) SHAWN (test code = SHAWN) INTERPRETATION OF PROCALCITONIN RESULTS IN ADULTS >= 18 YEARS OF AGEInitiation and discontinuation of antibiotics on patients with suspected or confirmed Lower Respiratory Tract Infection in Adults >= 18 years of age.+ +---- + ----+ ---------+|Procalcitonin |Interpretation?|Antibio tic? |Considerations? |ng/mL? |?|recommendation |? + +-------- --------+ + -----+| <0.1? | Bacterial?| Strongly?|? |?| infection very | discouraged? | Overruling:? |?| unlikely? |? | ? Clinically unstable? + +-------- --------+ + ? High risk for adverse? | <0.25?| Bacterial?| Discouraged? |? outcome? |?| infection?|? | ? SEE IMPORTANT NOTE?|?| unlikely? |? |? + +-------- --------+ + -----+| >=0.25? | Bacterial?| Encouraged?|? |?| infection?|? |? |?| likely? |? | Consider treatment failure?+ + +------- --------+ if levels does not decrease | >0.5? | Bacterial?| Strongly?| appropriately? |?| infection very | encouraged?|? |?| likely? |? |? + +-------- --------+ + -----+Discontinuation of antibiotics in high-acuity patients with suspected or confirmed sepsis in Adults >= 18 years of age.+ +---- + ----+ ---------+|Procalcitonin |Interpretation?|Antibio tic? |Considerations? |ng/mL? |?|recommendation |? + +-------- --------+ + -----+| <0.25?| Bacterial?| Strongly?|? |?| infection very | discouraged? | Overruling:? |?| unlikely? |? | ? Clinically unstable? + +-------- --------+ + ? High risk for adverse? | <0.5 or drop | Bacterial?| Discouraged? |? outcome? | >80% from?| infection?|? | ? SEE IMPORTANT NOTE?| highest PCT?| unlikely? |? |? | level?|?|? |?? + +-------- --------+ + -----+| >=0.5?| Bacterial?| Encouraged?|? |?| infection?|? |? |?| likely? |? | Consider treatment failure?+ + +------- --------+ if levels does not decrease | >1.0? | Bacterial?| Strongly?| appropriately? |?| infection very | encouraged?|? |?| likely? |? |? + +-------- --------+ + -----+Percentage of drop of Procalcitonin calculation for Discontinuation of antibiotics in high-acuity patients with suspected or confirmed sepsis in Adults >= 18 years of age.? Procalcitonin highest{}-Procalcitonin current{}Delta Procalcitonin = x100% ? Procalcitonin current {}IMPORTANT NOTE: Procalcitonin may be elevated without bacterial infection by physiologic stress related to trauma, ellis, chronic dialysis, metastatic cancer, surgery in the past seven days, malaria, some fungal infections, and some forms of vasculitis. The interpretation algorithm may not apply to patients with immunosuppression (equivalent of >10 mg of prednisone daily), HIV with CD4 cell count < 350 cells/mm3, active malignancy on systemic chemotherapy, solid organ transplant or hematopoietic stem cell transplantation, or hospital acquired pneumonia. Additionally, some clinical trials of procalcitonin have excluded patients with shock requiring vasopressor use, acute respiratory failure requiring mechanical ventilation, or those with known lung abscess/empyema.For further information please refer to:[email or web address] Lab Interpretation Abnormal (test code = 73531-7) [facility]2018-12-02 17:00:00 Test Item Value Reference Range Interpretation Comments POCT GLU (test code = 8393417315) 104 mg/dL 70-110 Lab Interpretation (test code = Normal 41435-2) [facility] [id number] 16:52:00 Test Item Value Reference Range Interpretation Comments TROPONIN I (test 0.001 ng/mL See_Comment [Automated code = 9619567172) message] The system which generated this result transmitted reference range : <=0.034. The reference range was not used to interpret this result as normal/abnormal . SHAWN (test code = Equal or Less than SHAWN) 0.034 ng/ml---Normal?Not e: Cardiac troponin begins to rise 3-4 hours after the onset of ischemia. Repeat in 4-6 hours if the sample was drawn within 3-4 hours of the onset of the symptom and found normal. Between 0.035 and 0.120 ng/mL--- Borderline. Questionable myocardial injury or necrosis?Note: Serial measurement may be necessary to confirm or exclude the diagnosis of myocardial injury or necrosis; Clinical correlation (symptoms, EKGs, imaging studies, and others) required; Repeat in 4-6 hours if clinically indicated.? Equal or Higher than 0.121 ng/mL---Abnormal. Myocardial Injury or Necrosis Likely? Biotin has been reported to cause a negative bias, interpret results relative to patient's use of biotin.? ? Lab Interpretation Normal (test code = 04345-3) [facility]ED[facility]ENTATION [id number] 12:28:00 Test Item Value Reference Range Interpretation Comments ESR (test code = See_Comment H [Automated message] 4925668115) The system [employer] generated this result transmitted ref erence range: 0 - 10 m m/HR. The reference r bhavna was not used to interpret this result as normal/abnor mal. Lab Interpretation (test Abnormal code = 57763-9) [facility]2018-12-02 12:22:00 Test Item Value Reference Range Interpretation Comments POCT GLU (test code = 4730897922) 93 mg/dL 70-110 Lab Interpretation (test code = Normal 81424-5) [facility] [id number] 12:00:00 Test Item Value Reference Range Interpretation Comments TROPONIN I (test 0.002 ng/mL See_Comment [Automated code = 3785214367) message] The system which generated this result transmitted reference range : <=0.034. The reference range was not used to interpret this result as normal/abnormal . SHAWN (test code = Equal or Less than SHAWN) 0.034 ng/ml---Normal?Not e: Cardiac troponin begins to rise 3-4 hours after the onset of ischemia. Repeat in 4-6 hours if the sample was drawn within 3-4 hours of the onset of the symptom and found normal. Between 0.035 and 0.120 ng/mL--- Borderline. Questionable myocardial injury or necrosis?Note: Serial measurement may be necessary to confirm or exclude the diagnosis of myocardial injury or necrosis; Clinical correlation (symptoms, EKGs, imaging studies, and others) required; Repeat in 4-6 hours if clinically indicated.? Equal or Higher than 0.121 ng/mL---Abnormal. Myocardial Injury or Necrosis Likely? Biotin has been reported to cause a negative bias, interpret results relative to patient's use of biotin.? ? Lab Interpretation Normal (test code = 62268-0) [facility]IP[facility] PANEL (83915)(TOTAL CHOLESTEROL, TRIGLYCERIDES, HDL)2018-12-02 11:49:00 Test Item Value Reference Range Interpretation Comments CHOL (test code = 140 mg/dL 120-200 3173208239) HDL (test code = 23 mg/dL >40 L 0850565013) HDLC RATIO (test code = See_Comment H [Au tomated message] 9036111707) The system [employer] generated this result transmit carey reference range : <=5.0. The refe rence range was not u sed to interpret th is result as normal/abnormal . TRIG (test code = 107 mg/dL 30-170 4001510850) LDL CHOL (test code = 96 mg/dL See_Comment [Auto mated message] 39709-4) The system [employer] generated this result transmit carey reference range : <=160. The refe rence range was not u sed to interpret th is result as normal/abnormal . VLDL (test code = 21 mg/dL 5-60 2360502100) Lab Interpretation (test Abnormal code = 11120-6) [facility] [id number] 06:54:00 Test Item Value Reference Range Interpretation Comments TROPONIN I (test 0.002 ng/mL See_Comment [Automated code = 8314737315) message] The system which generated this result transmitted reference range : <=0.034. The reference range was not used to interpret this result as normal/abnormal . SHAWN (test code = Equal or Less than SHAWN) 0.034 ng/ml---Normal?Not e: Cardiac troponin begins to rise 3-4 hours after the onset of ischemia. Repeat in 4-6 hours if the sample was drawn within 3-4 hours of the onset of the symptom and found normal. Between 0.035 and 0.120 ng/mL--- Borderline. Questionable myocardial injury or necrosis?Note: Serial measurement may be necessary to confirm or exclude the diagnosis of myocardial injury or necrosis; Clinical correlation (symptoms, EKGs, imaging studies, and others) required; Repeat in 4-6 hours if clinically indicated.? Equal or Higher than 0.121 ng/mL---Abnormal. Myocardial Injury or Necrosis Likely? Biotin has been reported to cause a negative bias, interpret results relative to patient's use of biotin.? ? Lab Interpretation Normal (test code = 57116-3) [facility] HospitalPhosphorus [id number] 06:43:00 Test Item Value Reference Range Interpretation Comments PHOSPHORUS (test code = 0127722424) 2.8 mg/dL 2.5-5 Lab Interpretation (test code = Normal 55522-9) [facility] (NA, K, CL, CO2, GLUCOSE, BUN, CREATININE, CA)2018-12-02 06:43:00 Test Item Value Reference Range Interpretation Comments NA (test code = 140 mmol/L 135-145 0927080230) K (test code = 3.7 mmol/L 3.5-5 2854499422) CL (test code = 106 mmol/L 98-108 3926624119) CO2 TOTAL (test code = 27 mmol/L 23-31 2344423579) AGAP (test code = 2-16 4056226393) BUN (test code = 7 mg/dL 7-23 8490355348) GLUCOSE (test code = 92 mg/dL 70-110 3964296037) CREATININE (test code = 0.72 mg/dL 0.6-1.25 0670576169) CALCIUM (test code = 8.5 mg/dL 8.6-10.6 L 1593812190) eGFR Calculation mL/min/1.73m2 (Non-) (test code = 6158911446) eGFR Calculation mL/min/1.73m2 () (test code = 3791825006) SHAWN (test code = SHAWN) Association of Glomerular Filtration Rate (GFR) and Staging of Kidney Disease*+ + + +| GFR (mL/min/1.73 m2)?| With Kidney Damage?|?Without Kidney Damage+ --------+ --------+ +|?>90?|?S gabriele one?|? Normal?+ ---------+ ---------+ +|?60-89? |?Stage two?|? Decreased GFR? + --+ --+ ------+|?30-59?|?Stage three?|? Stage three? + --+ --+ ------+|?15-29?|?Stage four? |? Stage four?+ -------+ -------+ +|?<15 (or dialysis)?|?Stage five? |? Stage five?+ -------+ -------+ +*Each stage assumes the associated GFR level has been in effect for at least three months.?Stages 1 to 5, with or without kidney disease, indicate chronic kidney disease.Notes: Determination of stages one and two (with eGFR >59mL/min/1.73 m2) requires estimation of kidney damage for at least three months as defined by structural or functional abnormalities of the kidney, manifested by either:Pathological abnormalities or Markers of kidney damage (including abnormalities in the composition of the blood or urine or abnormalities in imaging tests). Lab Interpretation Abnormal (test code = 66910-2) [facility] HospitalMagnesium [id number] 06:43:00 Test Item Value Reference Range Interpretation Comments MAGNESIUM (test code = 1837925760) 2.0 mg/dL 1.7-2.4 Lab Interpretation (test code = Normal 71431-9) [facility] WITH [id number] 06:24:00 Test Item Value Reference Range Interpretation Comments WBC (test code = See_Comment [Automated 7454-2) message] The sy stem which generated this result transmitted reference range : 4.20 - 10.70 10*3/?L. The reference range was not used to interpret this result as normal/abnormal . RBC (test code = See_Comment [Automated 128-1) message] The sy stem which generated this result transmitted reference range : 4.26 - 5.52 10*6/?L. The reference range was not used to interpret this result as normal/abnormal . HGB (test code = 14.4 g/dL 12.2-16.4 718-7) HCT (test code = 42.4 % 38.4-49.3 4544-3) MCV (test code = 88.1 fL 81.7-95.6 787-2) MCH (test code = 29.9 pg 26.1-32.7 785-6) MCHC (test code = 34.0 g/dL 31.2-35 786-4) RDW-SD (test code = 43.0 fL 38.5-51.6 58635-2) RDW-CV (test code = 13.2 % 12.1-15.4 788-0) PLT (test code = See_Comment L [Automated 777-3) message] The sy stem which generated this result transmitted reference range : 150 - 328 10*3/ ?L. The reference r bhavna was not used to interpret this result as normal/abnormal . MPV (test code = 12.9 fL 9.8-13 36589-0) NRBC/100 WBC (test See_Comment [Automat ed code = 2107433418) message] The system which generated this result transmitted reference range : 0.0 - 10.0 /100 WBCs. The refer ence range was not u sed to interpret th is result as normal/abnormal . NRBC x10^3 (test code <0.01 See_Comment [Auto mated = 7329058144) message] The s ystem which generated this result transmitted reference range : 10*3/?L. The reference range was not used to interpret this result as normal/abnormal . GRAN MAT (NEUT) % 58.9 % (test code = 770-8) IMM GRAN % (test code 0.60 % = 0370458179) LYMPH % (test code = 30.8 % 736-9) MONO % (test code = 6.2 % 5905-5) EOS % (test code = 3.0 % 713-8) BASO % (test code = 0.5 % 706-2) GRAN MAT x10^3(ANC) 5.88 10*3/uL 1.99-6.95 (test code = 4511249909) IMM GRAN x10^3 (test 0.06 10*3/uL 0-0.06 code = 0724341015) LYMPH x10^3 (test code 3.08 10*3/uL 1.09-3.23 = 731-0) MONO x10^3 (test code 0.62 10*3/uL 0.36-1.02 = 742-7) EOS x10^3 (test code = 0.30 10*3/uL 0.06-0.53 711-2) BASO x10^3 (test code 0.05 10*3/uL 0.01-0.09 = 704-7) Lab Interpretation Abnormal (test code = 33361-2) [facility]GLUBED2019-04-[facility] 11:32:00 Test Item Value Reference Range Interpretation Comments GLUBED (test code = GLUBED) 155 mg/dL 70-110 H BASIC METABOLIC [id number] 06:26:00 Test Item Value Reference Range Interpretation [...] CA) 8.0 mg/dl 8.0-10.5 N CBC W/AUTO [id number] 06:04:00 Test Item Value Reference Range Interpretation [...] code = BA#) 0.1 K/mm3 0.0-0.2 N [id number] 05:50:00 Test Item Value Reference Range Interpretation Comments GLUBED (test code = GLUBED) 163 mg/dL 70-110 H [id number] 00:32:00 Test Item Value Reference Range Interpretation Comments GLUBED (test code = GLUBED) 216 mg/dL 70-110 H [id number] 05:57:00 Test Item Value Reference Range Interpretation Comments GLUBED (test code = GLUBED) 147 mg/dL 70-110 H [id number] 00:14:00 Test Item Value Reference Range Interpretation Comments GLUBED (test code = GLUBED) 169 mg/dL 70-110 H [id number] 16:32:00 Test Item Value Reference Range Interpretation Comments GLUBED (test code = GLUBED) 132 mg/dL 70-110 H [id number] 11:51:00 Test Item Value Reference Range Interpretation Comments GLUBED (test code = GLUBED) 170 mg/dL 70-110 H CARDIAC ENZYMES [id number] 08:23:00 Test Item Value Reference Range Interpretation Comments CREATINE KINASE (CK) 28 Units/L 39-308 L (test code = CK) TROPONIN-I (test code <0.02 NG/ML 0.00-0.06 N REFERE NCE RANGE = TROPI) TROPONIN I HEAL THY INDIVIDUALS: < 0.06 ng/mL R/O ISCHE AKHIL: 0.07 - 0.60 ng/ mL CUT-OFF RANGE F OR AMI: 0.60 - 1. 5 ng/mL - XR CHEST 1 [id number] 06:38:00 FAX: Sky Valente MD [phone] [place]: St: ADM FAX: Jimmie Dobbs [phone] Name: JUAREZSUDHEER [facility] : 1970 Age/S: 47/M [address] [facility] Unit #: [id number] Loc: [address] [place], [place] Phys: Chilango Vigil [address] Acct: Rajan [id number] Dis Date: Status: ADM IN PHONE #: [phone] Exam Date: 08/12/2018 0636 FAX #: [phone] Reason: CHEST PAIN EXAMS: CPT CODE: [id number] XR CHEST 1 V 36139 Location: U19. CHEST, FRONTAL VIEW HISTORY: CHEST PAIN COMPARISON: Chest x-ray 05/17/18. FINDINGS: The lungs are clear without consolidation. No pleural effusion or pneumothorax. The heart size is normal. The bones are unremarkable. IMPRESSION: No evidence of acute cardiopulmonary disease. [id number] Reported and signed by: Augusta Remy M.D. CC: Sky Bartholomew MD; [place]ango BE Technologist: KAREN CEE Trnscrd Date/Time/By: 08/12/2018 (0638) : By: [email or web address] PAGE 1 Signed Report FAX: Sky Valente MD [phone] [place]: St: ADM FAX: Chilango Dobbs [phone] Name: SUDHEER JUAREZ [facility] : 1970 Age/S: 47/M [address] [facility] Unit #: [id number] Loc: [address] Phys: Chilango Vigil [address] Acct: [id number] Dis Date: Status: ADM IN PHONE #: [phone] Exam Date: 08/12/2018635 FAX #: [phone] Reason: CHEST PAIN EXAMS: CPT CODE: [id number] XR CHEST 1 V 11895 <Continued> Orig Print D/T: S: 08/12/2018 (0641) PAGE 2 Signed [id number] 05:48:00 Test Item Value Reference Range Interpretation Comments GLUBED (test code = GLUBED) 155 mg/dL 70-110 H [id number] 04:15:00 Test Item Value Reference Range Interpretation Comments GLUBED (test code = GLUBED) 195 mg/dL 70-110 H [id number] 16:15:00 Test Item Value Reference Range Interpretation Comments GLUBED (test code = GLUBED) 210 mg/dL 70-110 H URINALYSIS [id number] 13:21:00 Test Item Value Reference Range Interpretation [...] = MUCU) TRACE DRUGS OF ABUSE SCREEN [id number] 13:20:00 Test Item Value Reference Interpretation Comments [...] = [place]) concentrati on: 300 ng/mL URINALYSIS [id number] 13:17:00 Test Item Value Reference Range Interpretation [...] UA BACTERIA (test code = NONE BACU) [id number] 11:54:00 Test Item Value Reference Range Interpretation Comments HGBA1C% (test code = HGBA1C%) 5.7 %A1C 4.8-6.0 N ESTIMATED AVERAGE GLUCOSE (test 117 MG/DL code = EAG) [id number] 11:19:00 Test Item Value Reference Range Interpretation Comments GLUBED (test code = GLUBED) 225 mg/dL 70-110 H COMPREHENSIVE METABOLIC [id number] 07:52:00 Test Item Value Reference Range Interpretation [...] 50.0-136.0 N code = ALKP) Comments to [employer]en[employer] Reporter: Patient is currently in the ED waiting [...] LDL) 128 mg/dl 70-130 N Comments to [address] Reporter: Patient is currently in the ED waiting on a [id number] 07:52:00 Test Item Value Reference Range Interpretation Comments MAGNESIUM (test code = MAG) 1.9 mg/dl 1.8-2.[address] to [address] Reporter: Patient is currently in the ED waiting on a bedCBC W/AUTO [id number] 07:31:00 Test Item Value Reference Range Interpretation [...] BA#) 0.0 K/mm3 0.0-0.2 [address] to [address] Reporter: Patient is currently in the ED waiting on a [id number] 05:55:00 Test Item Value Reference Range Interpretation Comments GLUBED (test code = GLUBED) 215 mg/dL 70-110 H [id number] 00:35:00 Test Item Value Reference Range Interpretation Comments GLUBED (test code = GLUBED) 260 mg/dL 70-110 H COMPREHENSIVE METABOLIC [id number] 18:48:00 Test Item Value Reference Range Interpretation [...] 50.0-136.0 N code = ALKP) COMPREHENSIVE METABOLIC [id number] 18:41:00 Test Item Value Reference Range Interpretation [...] (test Units/L 50.0-136.0 code = ALKP) PROTHROMBIN [id number] 18:36:00 Test Item Value Reference Range Interpretation Comments PROTHROMBIN TIME 12.6 SECONDS 9.9-12.8 N PATIENT (test code = PTP) INTERNATIONAL NORMAL 1.1 0.89-1.14 N THE INR IS TO BE USED RATIO (test code = ONLY FOR MONITORING INR) ORAL ANTICOAGULANTTH ERAPY. THE FOLLOWING A RE SUGGESTED RANGE S FROM [facility] LE[facility] OF CHEST PHYSICIANS:REJI CATION INR VALUEPROPHYLAXI S OF VENOUS THROMBOS IS (ORTHOPEDIC RENNY TA) 2.0 - 3.0PROP HYLAXIS OF VENOUS THROM BOSIS (OTHER THAN HIG H-RISK SURGERY) 2.0 - 3.0TRE ATMENT OF DEEP VEIN THROMBOSIS OR PULMONARY EMBOL ISM 2.0 - 3.0PREV ENTION OF SYSTEMIC EMB OLISM TISSUE HEART VA LVES 2.0 - 3.0 AC WALTER MYOCARDIAL INFA RCTION (TO PREVENT SYSTEMIC EMBOLI [...] ANTIBODIES 2.5 - 3 .5 CBC W/AUTO [id number] 18:31:00 Test Item Value Reference Range Interpretation [...] K/mm3 0.0-0.2 N - CT L-SPINE W/O [id number] 18:03:00 FAX: Sagar Troncoso MD [phone] [place]: St: REG Name: SUDHEER JUAREZ [facility] : 1970 Age/S: 47/M [address] [facility] Unit: [id number] Loc: E.[place], [place]: [place] [address] Acct: [id number] Dis Date: Status: REG ER PHONE #: [phone] Exam Date: 08/10/2018 8757 FAX #: [phone] Reason: acute injury, Hx L3-4 fusion EXAMS: CPT CODE: [id number] CT L-SPINE W/O CONTRAST 52716 EXAM: CT LUMBAR SPINE WITHOUT CONTRAST INDICATION: [...] Signed Report (CONTINUED) FAX: Sagar Troncoso MD [phone] [place]: St: REG Name: SUDHEER JUAREZ [facility] : 1970 Age/S: 47/M [address] [facility] [address] Unit: [id number] Loc: E.[place], [place] Phys: Sagar Peters MD[address] Acct: [id number] Dis Date: Status: REG ER PHONE #: [phone] Exam Date: 08/10/2018 1754FAX #: [phone] Reason: acute injury, Hx L3-4 fusion EXAMS: CPT CODE: [id number] CT L-SPINE W/O CONTRAST 97904 <Continued> Diffuse discogenic disease and facet joint [...] MD Technologist: MEHUL AWAN Trnscrd Dt/Tm: 08/10/2018 (180) [email or web address] Orig Print D/T: S: 08/10/2018 (9758 PAGE 2 Signed Report- CT HEAD/BRAIN W/O [id number] 17:56:00 FAX: Sagar Troncoso MD [phone] [place]: St: REG Name: JUAREZSUDHEER [facility] : 1970 Age/S: 47/M [address] Unit: [id number] Loc: E.[place], [place]: [place] [address] Acct: [id number] Dis Date: Status: REG ER PHONE #: [phone] Exam Date: 08/10/2018 1754 FAX #: [phone] Reason: acute injury, +LOC EXAMS: CPT CODE: [id number] CT HEAD/BRAIN W/O CONT 96495 CT HEAD WITHOUT CONTRAST. HISTORY: acute injury, [...] IMPRESSION: Noevidence of acute intracranial abnormality. at 4601 Reported and signed by: Augusta Remy M.D. CC: Sagar Peters MD Technologist: MEHUL AWAN Trnscrd Dt/Tm: 08/10/2018 (3754) [email or web address] Orig Print D/T: S: 08/10/2018 (1769 PAGE 1 Signed Report- XR T-SPINE 3 [id number] 17:33:00 FAX: Sagar Troncoso MD [phone] [place]: St: REG Name: SUDHEER JUAREZ [facility] : 1970 Age/S: 47/M [address] [facility] Unit#: [id number] Loc: E.[place], [place]: [place] [address] Acct: [id number] Dis Date: Status: REG ER PHONE #: [phone] Exam Date: 08/10/2018 1729 FAX #: [phone] Reason: acute injury EXAMS: CPT CODE: [id number] XR T-SPINE 3 VIEWS 97417 Site ID: [id number] HISTORY: Acute injury, back pain IMPRESSION: Normal thoracic kyphosis, no acute fracture or subluxation. No significant spondylosis. Visualized ribs are intact. Spinal epidural leads terminate at the T8-T9 level. at 1733 Reported and signed by: Memo Greer M.D. CC: Sagar Peters MD Technologist: HAI ELKINS [facility] Date/Time/By: 08/10/2018 (3508) : By: [email or web address] PAGE 1Signed Report FAX: Sagar Troncoso MD [phone] [place]: St: REG -- Name: SUDHEER JUAREZ [facility] : 1970 Age/S: 47/M [address] [facility] Unit #: [id number] [place]: [place] [address] Acct: [id number] Dis Date: Status: REG ER PHONE #: [phone] Exam Date: 08/10/2018 1729 FAX #: [phone] Reason: acute injury EXAMS: CPT CODE: [id number] XR T-SPINE 3 VIEWS 74363 <Continued> OrigPrint D/T: S: 08/10/2018 (1299) PAGE 2 Signed Report[U] XRAY SPINE LUMBOSACRAL MIN 4 S [id number] 13:57:00 Test Item Value Reference Range Interpretation Comments XR SPINE LUMBOSACRAL EXAM: XR SPINE MIN 4 VWS (test code = LUMBOSACRAL MIN 4 VWS 76003-9) DATE: 05/30/2017 at 1400 hours. INDICATION: Lower back pain. COMPARISON: None available. TECHNIQUE: AP, lateral, coned lateral, LPO and RPO radiographs of the lumbar spine. FINDINGS:5 nonrib bearing, lumbar-type vertebral bodies are present.A presumed spinal cord stimulator battery pack project over the left hip. Its distal leads are excluded from the fmacu-bt-oeog.Moderate facet arthropathy is present throughout the mid to lower lumbar spine.There appears to be an intervening disc spacer at the L3-L4 level. IMPRESSION:1. No acute, radiographic abnormality of the lower lumbar spine.2. Advanced facet arthropathy throughout the mid to lower lumbar spine.3. Probable intervening disc spacer at the L3-L4 level. 05/30/2017 2:32 PM [employer] Lamont Hector [facility]"
[2021-07-27 18:28] LABS: Urine Blood Negative (Negative); Urine Glucose Negative (Negative); Urine Protein Negative (Negative); Urine pH 5.5 (5.0-7.0)
[2021-07-27] MEDS ORDERED: FAMOTIDINE 20 MG/2 ML VIAL IV ONE (18:37)
[2021-07-27] MEDS ORDERED: MORPHINE 4 MG/ML SYR ONE ×2 (18:37→20:59)
[2021-07-27] MEDS ORDERED: NA CHLORIDE 0.9% 1,000 ML ONE (18:37)
[2021-07-27] MEDS ORDERED: ONDANSETRON 4 MG/2 ML VIAL ONE ×2 (18:37→21:00)
[2021-07-27 18:39] LABS: Urine Bacteria <20 /HPF (NONE SEEN); Urine RBC <5 /HPF (NONE SEEN)
[2021-07-27 18:42] LABS: Absolute Lymphocytes (CBC) 2.4 K/uL (0.7-4.9); Hematocrit 46.3 % (39.6-49.0); Lymphocytes % 20.7 % (15.3-44.8); MPV 11.1 fL (7.6-11.3); RBC Red Blood Cell Count 5.16 M/uL (4.33-5.43)
[2021-07-27 18:55] LABS: ALT/SGPT 32 U/L (12-78); AST/SGOT 26 U/L (15-37); Albumin 3.5 g/dL (3.4-5.0); Alkaline Phosphatase 111 U/L (45-117); BUN Blood Urea Nitrogen 10 mg/dL (7-18); Bicarbonate 28 mmol/L (21-32); Bilirubin Total 0.8 mg/dL (0.2-1.0); Glucose Level 101 mg/dL (74-106); Lipase 171 U/L (73-393); Potassium 4.2 mmol/L (3.5-5.1); Protein, Total 8.1 g/dL (6.4-8.2); Sodium Level 137 mmol/L (136-145)
--- NOTE | 2021-07-27 20:59 | RAD REPORT ---
EXAM DESCRIPTION: CT - Abdomen Pelvis Wo Contrast - 07/27/2021 8:35 pm CLINICAL HISTORY: Abdominal distention;Abd pain COMPARISON: <Comparisons> CT study 05/01/2014 TECHNIQUE: Axial [address] imaging of the abdomen and pelvis was performed without IV contrast. No IV contrast was given because of allergy, abnormal renal function, patient refusal or physician re quest. Oral contrast was given. All CT scans are performed using dose optimization technique as appropriate and may include automated exposure control or mA/KV adjustment according to patient size. FINDINGS: No suspicious findings in the lung bases. The liver, spleen and pancreas show no suspicious findings on non-contrast imaging. Gallbladder is ab sent. No biliary tree dilatation. No hydronephrosis or suspicious renal mass. No significant adrenal finding. Isodense renal masses an d pyelonephritis cannot be excluded in the absence of IV contrast. Urinary bladder is fully contracte d. No dilated bowel loops or bowel wall thickening. Appendix is normal. No active GI process identifiabl e. No free air, free fluid or inflammatory stranding. No hernia, mass or bulky lymphadenopathy. No suspicious bony findings. Neurostimulator wires are in place. Battery packs are seen in the right abdomen subcutaneous fat in the subcutaneous fat over the superior left gluteal musculature. IMPRESSION: Non-contrast enhanced CT abdomen and pelvis imaging show no acute or emergent finding. Full assessment is limited is the absence of IV contrast.
--- NOTE | 2021-07-27 21:43 | ER ---
Nurse's Notes [facility] Name: Matti Juarez Age: 50 yrs Sex: Male : 1970 Arrival Date: 07/27/2021 Time: 17:36 Bed 17 Private MD: Diagnosis: Abdominal pain, unspecified Presentation: 07/27 17:55 Chief complaint: Patient states: i started yesterday started having real bad stomach tw2 pains, well the night before. it would ease off. but now its getting worse and worse. i am real nauseated, i havent thrown up but i feel like i can. i did get a cat scan yesterday for migraines. i think maybe a virus or not but its all over. Coronavirus screen: nausea, Client presents with at least one sign or symptom that may indicate coronavirus-19. Standard/surgical mask placed on the client. Provider contacted for isolation considerations. Ebola Screen: Patient denies travel to an Ebola-affected area in the 21 days before illness onset. Initial Sepsis Screen: Does the patient meet any 2 criteria? No. Patient's initial sepsis screen is negative. Does the patient have a suspected source of infection? No. Patient's initial sepsis screen is negative. Risk Assessment: Do you want to hurt yourself or someone else? Patient reports no desire to harm self or others. Onset of symptoms was July 27, 2021. 17:55 Method Of Arrival: Ambulatory tw2 17:55 Acuity: JELENA 3 tw2 Triage Assessment: 18:00 General: Appears in no apparent distress. obese, well groomed, Behavior is calm, tw2 cooperative, appropriate for age. Pain: Complains of pain in abdomen. GI: Reports lower abdominal pain, upper abdominal pain, bloating, nausea. Historical: - Allergies: 17:57 Anesthesia; tw2 17:57 Aspirin; tw2 17:57 Iodinated Contrast Media - IV Dye (cardiac arrest); tw2 17:57 atorvastatin; tw2 17:57 Requip; tw2 17:57 SHELLFISH; tw2 17:57 ropinirole HCl; tw2 - Home Meds: 17:57 metformin 1,000 mg Oral tab 1 tab 2 times per day [Active]; pregabalin 75 mg oral cap 1 tw2 cap [Active]; promethazine 25 mg Oral tab 1 tab every 6 hours [Active]; - PMHx: 17:57 cardiac arrest; Diabetes - NIDDM; heart catheterization; Hypertension; tw2 - PSHx: 17:57 Cholecystectomy; spine fusion; pain pump implant, RIGHT lower abd; spine stimulator, tw2 LEFT hip; - Immunization history:: Client reports receiving the 2nd dose of the Covid vaccine, Flu vaccine is up to date. - Social history:: Smoking status: Patient denies any tobacco usage or history of. Screenin:37 Abuse screen: Denies threats or abuse. Nutritional screening: No deficits noted. tw2 Tuberculosis screening: No symptoms or risk factors identified. Fall Risk None identified. Assessment: 18:27 General: Appears in no apparent distress. comfortable, Behavior is calm, cooperative, ab2 appropriate for age. Pain: Complains of pain in abdomen Pain currently is 7 out of 10 on a pain scale. Neuro: Level of Consciousness is awake, alert, obeys commands, Oriented to person, place, time, situation, Appropriate for age Cardiovascular Lab Director are equal bilaterally Moves all extremities. Gait is steady, Speech is normal, Facial symmetry appears normal. Cardiovascular: No deficits noted. Denies chest pain, shortness of breath, Heart tones S1 S2 present Patient's skin is warm and dry. Respiratory: No deficits noted. Airway is patent Respiratory effort is even, unlabored, Respiratory pattern is regular, symmetrical, Breath sounds are clear bilaterally. GI: Abdomen is round obese, Bowel sounds present X 4 quads. Abd is non tender Reports lower abdominal pain, upper abdominal pain, diarrhea, intolerance of food, nausea, vomiting. : No deficits noted. No signs and/or symptoms were reported regarding the genitourinary system. EENT: No deficits noted. No signs and/or symptoms were reported regarding the EENT system. Derm: Skin is intact, is healthy with good turgor, Skin is dry, Skin is pink, warm \T\ dry. Skin temperature is warm. 19:42 Reassessment: Patient and/or family updated on plan of care and expected duration. Pain ll3 level reassessed. Patient is alert, oriented x 3, equal unlabored respirations, skin warm/dry/pink. Patient states symptoms have not improved. 21:10 Reassessment: C/o nausea and abdominal pain, 9/10, ERP notified, medicated as ordered. ll3 22:15 Reassessment: PO challenge tolerated well, ERP notified. ll3 Vital Signs: 17:55 BP 158 / 97; Pulse 80; Resp 17; Temp 98.4(TE); Pulse Ox 100% on R/A; Weight 112.94 kg tw2 (R); Height 5 ft. 6 in. (167.64 cm); Pain 10/10; 18:39 BP 146 / 89; Pulse 83; Resp 17; Pulse Ox 98% on R/A; ab2 19:00 BP 133 / 100; Pulse 67; Resp 17; Pulse Ox 97% on R/A; ll3 21:12 BP 146 / 90; Pulse 78; Pulse Ox 95% on R/A; ll3 22:15 BP 129 / 91; Pulse 76; Resp 16; Pulse Ox 95% on R/A; ll3 17:55 Body Mass Index 40.19 (112.94 kg, 167.64 cm) tw2 ED Course: 17:36 Patient arrived in ED. ds1 17:53 Reyes Fitzgerald PA is PHCP. cp 17:53 Jeremy Fernandes MD is Attending Physician. cp 17:57 Triage completed. tw2 18:00 Arm band placed on. tw2 18:00 Bed in low position. Call light in reach. Adult w/ patient. Pulse ox on. NIBP on. tw2 18:08 Jared White is Primary Nurse. ab2 18:39 No provider procedures requiring assistance completed. Inserted saline lock: 22 gauge ab2 in left antecubital area, using aseptic technique. Blood collected. 18:45 Urine Dipstick-Ancillary Sent. mh5 20:35 Abdomen In Process Unspecified. EDMS 21:42 Kody Pagan MD is Referral Physician. cp 22:42 IV discontinued, intact, bleeding controlled, No redness/swelling at site. Pressure ll3 dressing applied. Administered Medications: 18:40 Drug: morphine 4 mg Route: IVP; Site: left forearm; ab2 18:56 Follow up: Response: No adverse reaction ab2 18:45 Drug: NS 0.9% 1000 ml Route: IV; Rate: 1 bolus; Site: left forearm; ab2 18:45 Drug: Pepcid (famotidine) 20 mg Route: IVP; Site: left forearm; ab2 18:56 Follow up: Response: No adverse reaction ab2 18:45 Drug: Zofran (Ondansetron) 4 mg Route: IVP; Site: left forearm; ab2 18:56 Follow up: Response: No adverse reaction ab2 21:08 Drug: morphine 4 mg Route: IVP; Site: left forearm; ll3 22:17 Follow up: Response: No adverse reaction; Marked relief of symptoms ll3 21:08 Drug: Zofran (Ondansetron) 4 mg Route: IVP; Site: left forearm; ll3 22:17 Follow up: Response: No adverse reaction; Marked relief of symptoms ll3 22:15 Drug: GI Cocktail without - (Maalox Suspension 30 ml, Lidocaine Liquid 2 % 15 ll3 ml) Route: PO; 22:43 Follow up: Response: No adverse reaction ll3 Outcome: 21:43 Discharge ordered by . alexys 22:42 Discharged to home ambulatory. ll3 22:42 Condition: stable 22:42 Discharge instructions given to patient, Instructed on discharge instructions, follow up and referral plans. medication usage, Demonstrated understanding of instructions, follow-up care, medications, Prescriptions given X 3. 22:44 Patient left the ED. ll3 Signatures: Dispatcher [employer] [facility] Sylvia Mercado ds1 Reyes Fitzgerald PA PA cp Wise, Tara, RN RN 2 Marie Daniels [facility] Richard Rosenberg RN RN ll3 Jared White ab2
--- NOTE | 2021-07-27 21:43 | EDPHYS ---
Physician Documentation [facility] Name: Matti Juarez Age: 50 yrs Sex: Male : 1970 Arrival Date: 07/27/2021 Time: 17:36 Bed 17 Private MD: ED Physician Jeremy Fernandes HPI: 07/27 18:30 This 50 yrs old Male presents to ER via Ambulatory with complaints of cp Abdominal Pain. 18:30 The patient presents with abdominal pain mid abdomen. cp 18:30 Onset: The symptoms/episode began/occurred yesterday. The symptoms do not radiate. cp Associated signs and symptoms: Pertinent positives: nausea, Pertinent negatives: constipation, diarrhea, shortness of breath, vomiting, chest pain. 18:30 The symptoms are described as burning. Severity of pain: in the emergency department cp the pain is unchanged despite home interventions. Historical: - Allergies: 17:57 Anesthesia; tw2 17:57 Aspirin; tw2 17:57 Iodinated Contrast Media - IV Dye (cardiac arrest); tw2 17:57 atorvastatin; tw2 17:57 Requip; tw2 17:57 SHELLFISH; tw2 17:57 ropinirole HCl; tw2 - Home Meds: 17:57 metformin 1,000 mg Oral tab 1 tab 2 times per day [Active]; pregabalin 75 mg oral cap 1 tw2 cap [Active]; promethazine 25 mg Oral tab 1 tab every 6 hours [Active]; - PMHx: 17:57 cardiac arrest; Diabetes - NIDDM; heart catheterization; Hypertension; tw2 - PSHx: 17:57 Cholecystectomy; spine fusion; pain pump implant, RIGHT lower abd; spine stimulator, tw2 LEFT hip; - Immunization history:: Client reports receiving the 2nd dose of the Covid vaccine, Flu vaccine is up to date. - Social history:: Smoking status: Patient denies any tobacco usage or history of. ROS: 18:45 Constitutional: Negative for body aches, chills, fever, poor PO intake. cp 18:45 Cardiovascular: Negative for chest pain, edema, palpitations. cp 18:45 Eyes: Negative for injury, pain, redness, and discharge. cp 18:45 ENT: Negative for drainage from ear(s), ear pain, sore throat, difficulty swallowing, difficulty handling secretions. 18:45 Respiratory: Negative for cough, shortness of breath, wheezing. 18:45 Abdomen/GI: Positive for abdominal pain, nausea, Negative for vomiting, diarrhea, constipation, black/tarry stool, rectal bleeding. 18:45 Back: Negative for radiated pain. 18:45 Neuro: Negative for altered mental status, dizziness, headache, syncope, weakness. 18:45 All other systems are negative. Exam: 18:50 Constitutional: The patient appears in no acute distress, alert, awake, cp non-diaphoretic, non-toxic, well developed, well nourished, obese. 18:50 Head/Face: Normocephalic, atraumatic. cp 18:50 Eyes: Periorbital structures: appear normal, Conjunctiva: normal, no exudate, no injection, Sclera: no appreciated abnormality, Lids and lashes: appear normal, bilaterally. 18:50 ENT: External ear(s): are unremarkable, Nose: is normal, Mouth: Lips: moist, Oral mucosa: pink and intact, moist, Posterior pharynx: Airway: no evidence of obstruction, patent. 18:50 Chest/axilla: Inspection: normal, Palpation: is normal, no crepitus, no tenderness. 18:50 Cardiovascular: Rate: normal, Rhythm: regular, Edema: is not appreciated, JVD: is not appreciated. 18:50 Respiratory: the patient does not display signs of respiratory distress, Respirations: normal, no use of accessory muscles, no retractions, labored breathing, is not present, Breath sounds: are clear throughout, no decreased breath sounds, no stridor, no wheezing. 18:50 Abdomen/GI: Inspection: obese Bowel sounds: active, all quadrants, Palpation: soft, in all quadrants, moderate abdominal tenderness, in the mid abdomen, rebound tenderness, is not appreciated, involuntary guarding, is not appreciated. 18:50 Back: pain, is absent, ROM is normal. Vital Signs: 17:55 BP 158 / 97; Pulse 80; Resp 17; Temp 98.4(TE); Pulse Ox 100% on R/A; Weight 112.94 kg tw2 (R); Height 5 ft. 6 in. (167.64 cm); Pain 10/10; 18:39 BP 146 / 89; Pulse 83; Resp 17; Pulse Ox 98% on R/A; ab2 19:00 BP 133 / 100; Pulse 67; Resp 17; Pulse Ox 97% on R/A; ll3 21:12 BP 146 / 90; Pulse 78; Pulse Ox 95% on R/A; ll3 22:15 BP 129 / 91; Pulse 76; Resp 16; Pulse Ox 95% on R/A; ll3 17:55 Body Mass Index 40.19 (112.94 kg, 167.64 cm) tw2 MDM: 18:02 Patient medically screened. cp 19:00 Differential diagnosis: appendicitis, bowel obstruction, pancreatitis, Peptic Ulcer cp Disease, Perf. Duodenal Ulcer, Perf. Gastric Ulcer, Ureterolithiasis, urinary tract infection. 21:42 Data reviewed: vital signs, nurses notes, lab test result(s), radiologic studies, CT cp scan. 21:42 Counseling: I had a detailed discussion with the patient and/or guardian regarding: the cp historical points, exam findings, and any diagnostic results supporting the discharge/admit diagnosis, lab results, radiology results, to return to the emergency department if symptoms worsen or persist or if there are any questions or concerns that arise at home. Response to treatment: the patient's symptoms have markedly improved after treatment. Special discussion: Based on the patient's Hx, exam, and Dx evaluation, there is no indication for emergent surgery or inpatient Tx. It is understood by the patient/guardian that if the Sx's persist or worsen they need to return immediately for re-evaluation. 07/27 18:27 Order name: CBC with Diff; Complete Time: 18:58 cp 07/27 18:27 Order name: CMP; Complete Time: 18:58 cp 07/27 18:27 Order name: Lipase; Complete Time: 18:58 cp 07/27 18:27 Order name: Urine Microscopic Only; Complete Time: 18:58 cp 07/27 18:28 Order name: Urine Dipstick-Ancillary EDMS 07/27 18:43 Order name: Abdomen ; Complete Time: 21:16 EDMS 07/27 18:27 Order name: IV Saline Lock; Complete Time: 18:27 cp 07/27 18:27 Order name: Labs collected and sent; Complete Time: 18:27 cp 07/27 18:27 Order name: Urine Dipstick-Ancillary (obtain specimen); Complete Time: 18:27 cp 07/27 21:17 Order name: PO challenge; Complete Time: 22:15 cp Administered Medications: 18:40 Drug: morphine 4 mg Route: IVP; Site: left forearm; ab2 18:56 Follow up: Response: No adverse reaction ab2 18:45 Drug: NS 0.9% 1000 ml Route: IV; Rate: 1 bolus; Site: left forearm; ab2 18:45 Drug: Pepcid (famotidine) 20 mg Route: IVP; Site: left forearm; ab2 18:56 Follow up: Response: No adverse reaction ab2 18:45 Drug: Zofran (Ondansetron) 4 mg Route: IVP; Site: left forearm; ab2 18:56 Follow up: Response: No adverse reaction ab2 21:08 Drug: morphine 4 mg Route: IVP; Site: left forearm; ll3 22:17 Follow up: Response: No adverse reaction; Marked relief of symptoms ll3 21:08 Drug: Zofran (Ondansetron) 4 mg Route: IVP; Site: left forearm; ll3 22:17 Follow up: Response: No adverse reaction; Marked relief of symptoms ll3 22:15 Drug: GI Cocktail without - (Maalox Suspension 30 ml, Lidocaine Liquid 2 % 15 ll3 ml) Route: PO; 22:43 Follow up: Response: No adverse reaction ll3 Disposition Summary: 07/27/21 21:43 Discharge Ordered Location: Home cp Problem: new cp Symptoms: have improved cp Condition: Stable cp Diagnosis - Abdominal pain, unspecified cp Followup: cp - With: Kody Pagan MD - When: 2 - 3 days - Reason: Recheck today's complaints Discharge Instructions: - Discharge Summary Sheet cp - Abdominal Pain, Adult cp Forms: - Medication Reconciliation Form cp - Thank You Letter cp - Antibiotic Education cp - Prescription Opioid Use cp Prescriptions: - Protonix 40 mg Oral Tablet - take 1 tablet by ORAL route once daily; 30 tablet; Refills: 0, Product cp Selection Permitted - Zofran 4 mg Oral Tablet - take 1 tablet by ORAL route every 12 hours As needed; 20 tablet; Refills: 0, cp Product Selection Permitted - dicyclomine 20 mg Oral Tablet - take 1 tablet by ORAL route 4 times per day; 30 tablet; Refills: 0, Product cp Selection Permitted Signatures: Dispatcher [employer] EDReyes Cordon PA PA cp Wise, Tara RN RN tw2 Richard Rosenberg RN RN ll3 Jared White2 Corrections: (The following items were deleted from the chart) 18:34 18:27 Abdomen Pelvis W Con+CT.RAD.BRZ ordered. EDMS EDMS 18:43 18:28 Abdomen Pelvis W Con+CT.RAD.BRZ ordered. EDMS EDMS
[2021-07-27] MEDS ORDERED: MAGNES/ALUMIN/SIMET 30ML UCUP ONE (22:02)
[2021-07-27] MEDS ORDERED: LIDOCAINE VISCOUS 2% SOLN 15 ML UDC ONE (22:02)
[2021-07-28 00:54] VITALS: TEMP 98.4
[2021-07-28 00:58] VITALS: O2SAT 95
[2021-07-28 00:59] VITALS: BP 129/91
== END 2021-07-27 22:44 | disposition home or self-care (01) ==
LOC: ER 17:35
DX: R10.9 Unspecified abdominal pain (principal); R11.0 Nausea; I10 Essential (primary) hypertension; E11.9 Type 2 diabetes mellitus without complications; I25.2 Old myocardial infarction; Z88.4 Allergy status to anesthetic agent; Z88.6 Allergy status to analgesic agent; Z88.8 Allergy status to other drugs, medicaments and biological substances; Z91.041 Radiographic dye allergy status; Z91.013 Allergy to seafood
CPT/HCPCS: 85025; 36415; 83690; 80053; 74176; 96375; 96374; 99284; J7030; J2405 ×2; 81003; 81015

== ENCOUNTER 2021-08-17 19:05 | Emergency (ER) | payer OTHER ==
--- OUTSIDE RECORDS SUMMARY | 2021-08-17 19:10 | XMS REPORT | Continuity of Care Document ---
:1970 Author Organization [facility] t Address [address] [place] [place] [address] Care Team Providers Name Role Phone NONE Primary Care Physician Unavailable ABILIO Attending Clinician Unavailable BRUNO Attending Clinician Unavailable BRUNO Attending Clinician Unavailable ZO GREER Attending Clinician Unavailable Stephen OLVERA Attending Clinician Unavailable Stephen OLVERA Attending Clinician Unavailable Bill BRYSON Attending Clinician Nemesio Murphy Attending Clinician Abilio BRYSON Attending Clinician Doctor Unassigned, Name Attending Clinician Unavailable MCKAYLA Attending Clinician Unavailable Braeden Molina MD Attending Clinician Unavailable CINTHIA Attending Clinician Unavailable Vtc-Lab Attending Clinician Unavailable Pcp-Lab Attending Clinician Unavailable Pb BRYSON Attending Clinician Tito Bush MD Attending Clinician Marleen Attending Clinician Unavailable KATELYN Attending Clinician Unavailable CINTHIA Admitting Clinician Unavailable Marleen Admitting Clinician Unavailable Payers Payer Name Policy Type Policy Number Effective Date Expiration Date S jewel [facility]/[facility] DUAL [id number] 2020 COMP HMO D SNP 00:00:00 MEDICAID OF [place] [id number] 2018 00:00:00 MEDICARE-PART B 5 [id number] 2020 00:00:00 [facility] - [id number] DUAL COMPLETE - DUAL ELIGIBLE - SNP (MEDICARE-MEDICAID REPLACEMENT HMO) [place]: ACS - [id number] TMHP - TRADITIONAL Problems Condition Condition Condition Status Onset Resolution Last Treating Co mments Source Name Details Category Date Date Treatment Clinician Date Chest pain Chest pain Disease Active U nivers 7-23 ity of 00:00: [place] [facility] Nonspecifi Nonspecifi Disease Active 2017-05 U nivers c chest c chest 0-17 ity of pain pain 00:00: [place] [facility] Branch Obesity Obesity Disease Active 2017-05 Univers (BMI (BMI 0-17 ity of 30-39.9) 30-39.9) 00:00: [place] [facility] Occlusion Occlusion Disease Active Uni vers and and 730 ity of stenosis stenosis 00:00: [place] of of 00 Medical multiple multiple Branch and and 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 Essential Essential Disease Active Uni vers hypertensi hypertensi 7-30 it y of on on 00:: [place] [facility] Type 2 Type 2 Disease Active Univers diabetes diabetes 7-30 ity of mellitus mellitus 00:00: [place] with other with other 00 Me dical specified specified Bran ch complicati complicati on on Mixed Mixed Disease Active Univers hyperlipid hyperlipid 7-30 it y of emia emia 00:00: [place] 00 Medical Branch SANDHYA SANDHYA Disease Active Univers (obstructi (obstructi 7-30 it y of ve sleep ve sleep 00:00: [place] apnea) apnea) 00 Medical Branch History of History of Problem Resolve Univers [...] ents Source Name Type Date Date Clinician SEAFOOD/ Food Active High Anaphylaxis 2018- Uni vers FISH 7-23 ity of 00:00: [place] 00 Medical Branch Seafood/ Food Active Anaphylaxis Uni vers Fish Allergy 7-23 ity of 00:00: [place] 00 Medical [facility] lisinopr DA Active ND 2018-0 [facility] d [facility] iodine DA Active SV 2018-0 [facility] 4-05 [facility] 00:[facility]: d [facility] lorazepa DA Active MO 2018-0 [facility] m 4-05 [facility] 00:[facility]: d [facility] aspirin DA Active ND 2018-0 [facility] 4-05 [facility] 00:[facility]: d 00 [facility] ropiniro DA Active ND 2018-0 [facility] le 4-05 [facility] 00:00: d 00 [facility] lisinopr DA Active ND 2018-0 [facility] il 3-31 [facility] 00:00: d 00 [facility] iodine DA Active SV 2018-0 [facility] 3-31 [facility] 00:[facility]: d 00 [facility] lorazepa DA Active MO 2019-0 [facility] m 3-31 [facility] 00:[facility]: d [facility] aspirin DA Active ND 2019-0 [facility] 3-31 [facility] 00:00: d 00 [facility] ropiniro DA Active ND 2019-0 [facility] le 3-31 [facility] 00:00: d 00 [facility] iodine DA Active SV 2019-0 [facility] 1-05 [facility] 00:00: d 00 [facility] lisinopr DA Active ND 2019-0 [facility] il 1- [facility] 00:00: d 00 [facility] Center iodine DA Active ND 2019-0 [facility] 1- [facility] 00:00: d 00 [facility] Center lorazepa DA Active MO 2019-0 [facility] m 1- [facility] 00:00: d 00 [facility] Center aspirin DA Active ND 2019-0 [facility] 1- [facility] 00:00: d 00 [facility] Center ropiniro DA Active ND 2019-0 [facility] le 1- [facility] 00:00: d 00 [facility] LISINOPR DRUG Active Med COUGH 2017- Univers IL INGREDI 0-17 ity of 00:00: [place] 00 Medical Branch Lisinopr Propensi Active Cough 2017- Persisten Uni vers il ty to 0-17 t cough ity of adverse 00:00: [place] reaction 00 Medical s to Branch drug lorazepa DA Active MO 2017-1 [facility] m 0-14 [facility] 00:00: d 00 [facility] lisinopr DA Active ND 2018-0 [facility] il 8-25 Clear 00:00: [place] 00 [facility] iodine DA Active ND 2018-0 [facility] 8-25 Clear 00:00: [place] 00 [facility] aspirin DA Active ND 2018-0 [facility] 8-25 Clear 00:00: [place] 00 [facility] ropiniro DA Active ND 2018-0 [facility] le 8-25 Clear 00:00: [place] 00 [facility] ATORVAST DRUG Active Low Unknown-Cmnt 0 Un alfonso ATIN INGREDI 7-30 ity of 00:00: [place] 00 Medical Branch Atorvast Propensi Active Other - See 0 CoughCou g Univers atin ty to comments 7-30 h ity of adverse 00:00: [place] reaction 00 Medical s Branch ASPIRIN DRUG Active High Other-Cmnt Unive rs INGREDI 10-11 ity of 00:00: [place] 00 Medical Branch ROPINIRO DRUG Active High Other-Cmnt Univ ers LE INGREDI 6 ity of 00:00: [place] 00 Medical Branch SHELLFIS DRUG Active High Palpitations Un alfonso H INGREDI 10-11 ity of DERIVED 00:00: [place] 00 Medical Branch Aspirin Propensi Active Other - See GI Un alfonso ty to comments 10-11 bleedingO ity o f adverse 00:00: ther [...] 00:00: [place] reaction 00 Medical s Branch IODINE DRUG Active Hives Univers INGREDI 05-19 ity of 00:00: [place] 00 Medical Branch Iodine Propensi Active Hives IV iodine Unive rs ty to 05-19 and ity of adverse 00:00: iodine [place] reaction -Cardiac Medica l s arrest Branch Iodine drug Active Univers SOLN allergy ity of [place] [facility] ans Social History Social Habit Start Date Stop Date Quantity Comments Source Exposure to Not sure [facility] SARS-CoV-2 [place] [facility] (event) Branch Alcohol intake 2021-08-10 2021-08-10 Current [facility] 00:00:00 00:00:00 non-drinker of [facility] alcohol Branch (finding) Tobacco use and 2017-12-09 2017-12-09 Never used Universit y of exposure 00:00:00 00:00:00 [facility] Sex [birth year] Universit y of 00:00:00 00:00:00 [facility] Smoking Status Start Date Stop Date Source Never smoker [facility] Medical Branch Medications Ordered Filled Start Stop Current Ordering Indication Dosage Frequency Signature Comments Components Source Medication Medication Date Date Medication? Clinician (SIG) Name Name lancets Yes [id number] Use as Univers gauge Misc 08-12 directed ity o f 00:00: [place] 00 Medical Branch blood sugar Yes [id number] Use as Univers diagnostic 08-12 directed ity o f (ACCU-CHEK 00:00: [place] SMARTVIEW 00 Medical TEST STRIP) Branch strip lancets Yes [id number] Use as Univers gauge Misc 4-02 directed ity o f 00:00: [place] [facility] blood sugar Yes [id number] Use as Univers diagnostic 4-02 directed ity o f (ACCU-CHEK 00:00: [place] SMARTVIEW 00 Medical TEST STRIP) Branch strip lancets Yes [id number] Use as Univers gauge Misc 4-02 directed ity o f 00:00: [place] [facility] [place] blood sugar Yes [id number] Use as Univers diagnostic 4-02 directed ity o f (ACCU-CHEK 00:00: [place] SMARTVIEW 00 Medical TEST STRIP) Branch strip lancets Yes [id number] Use as Univers gauge Misc 4-02 directed ity o f 00:00: [place] [facility] blood sugar Yes [id number] Use as Univers diagnostic 4-02 directed ity o f (ACCU-CHEK 00:00: [place] SMARTVIEW 00 Medical TEST STRIP) Branch strip losartan 25 Yes 25mg Take 25 mg Univers mg tablet 3-23 by mouth ity of 11:01: daily. [address] losartan 25 Yes 25mg Take 25 mg Univers mg tablet 3-23 by mouth ity of 11:01: daily. [address] losartan 25 Yes 25mg Take 25 mg Univers mg tablet 3-23 by mouth ity of 11:01: daily. [address] losartan 25 Yes 25mg Take 25 mg Univers mg tablet 3-23 by mouth ity of 11:01: daily. [address] losartan 25 Yes 25mg Take 25 mg Univers mg tablet 3-23 by mouth ity of 11:01: daily. [address] losartan 25 Yes 25mg Take 25 mg Univers mg tablet 3-23 by mouth ity of 11:01: daily. [address] rosuvastati Yes [id number] 5mg Take 1 Univers n 5 mg 3-23 tablet by ity of tablet 00:00: mouth [place] 00 daily. [facility] rosuvastati Yes [id number] 5mg Take 1 Univers n 5 mg 3-23 tablet by ity of tablet 00:00: mouth [place] 00 daily. Medical Branch rosuvastati 2021-0 Yes [id number] 5mg Take 1 Univers n 5 mg 3-23 tablet by ity of tablet 00:00: mouth [place] 00 daily. Medical Branch rosuvastati 2021-0 Yes [id number] 5mg Take 1 Univers n 5 mg 3-23 tablet by ity of tablet 00:00: mouth [place] 00 daily. Medical Branch rosuvastati 2021-0 Yes [id number] 5mg Take 1 Univers n 5 mg 3-23 tablet by ity of tablet 00:00: mouth [place] 00 daily. Medical Branch rosuvastati 2021-0 Yes [id number] 5mg Take 1 Univers n 5 mg 3-23 tablet by ity of tablet 00:00: mouth [place] 00 daily. Medical Branch HYDROmorpho 2021-0 Yes 4mg Take 4 mg U nivers ne 4 mg 3-11 by mouth 2 ity of tablet 14:26: (two) [place] 11 times Medical daily as Branch needed. montelukast 2021-0 Yes 10mg Take 10 mg Univers (SINGULAIR) 3-11 by mouth. ity of 10 mg 14:26: [place] tablet 11 [facility] HYDROmorpho 2021-0 Yes 4mg Take 4 mg U nivers ne 4 mg 3-11 by mouth 2 ity of tablet 14:26: (two) [place] 11 times Medical daily as Branch needed. montelukast 2021-0 Yes 10mg Take 10 mg Univers (SINGULAIR) 3-11 by mouth. ity of 10 mg 14:26: [place] tablet 11 Medical Branch HYDROmorpho 2021-0 Yes 4mg Take 4 mg U nivers ne 4 mg 3-11 by mouth 2 ity of tablet 14:26: (two) [place] 11 times Medical daily as Branch needed. montelukast 2-0 Yes 10mg Take 10 mg Univers (SINGULAIR) 3-11 by mouth. ity of 10 mg 14:26: [place] tablet 11 [facility] Branch HYDROmorpho 2021-0 Yes 4mg Take 4 mg U nivers ne 4 mg 3-11 by mouth 2 ity of tablet 14:26: (two) [place] 11 times Medical daily as Branch needed. montelukast 2022-0 Yes 10mg Take 10 mg Univers (SINGULAIR) 3-11 by mouth. ity of 10 mg 14:26: [place] tablet 11 Medical Branch HYDROmorpho Yes 4mg Take 4 mg U nivers ne 4 mg 3-11 by mouth 2 ity of tablet 14:26: (two) [place] 11 times Medical daily as Branch needed. montelukast Yes 10mg Take 10 mg Univers (SINGULAIR) 3-11 by mouth. ity of 10 mg 14:26: [place] tablet 11 Medical Branch HYDROmorpho Yes 4mg Take 4 mg U nivers ne 4 mg 3-11 by mouth 2 ity of tablet 14:26: (two) [place] 11 times Medical daily as Branch needed. montelukast Yes 10mg Take 10 mg Univers (SINGULAIR) 3-11 by mouth. ity of 10 mg 14:26: [place] tablet 11 Medical Branch metFORMIN Yes [id number] 1000mg Take 1 Univers 1,000 mg 3-04 tablet by ity of tablet 00:00: mouth 2 (two) Medical times Branch daily with meals. losartan 50 0 Yes [id number] 50mg Take 1 Univers mg tablet 3-04 tablet by ity o f 00:00: mouth [place] 00 daily. Medical Branch metFORMIN Yes [id number] 1000mg Take 1 Univers 1,000 mg 3-04 tablet by ity of tablet 00:00: mouth 2 (two) Medical times Branch daily with meals. losartan 50 0 Yes [id number] 50mg Take 1 Univers mg tablet 3-04 tablet by ity o f 00:00: mouth [place] 00 daily. Medical Branch metFORMIN Yes [id number] 1000mg Take 1 Univers 1,000 mg 3-04 tablet by ity of tablet 00:00: mouth 2 (two) Medical times Branch daily with meals. losartan 50 0 Yes [id number] 50mg Take 1 Univers mg tablet 3-04 tablet by ity o f 00:00: mouth [place] 00 daily. Medical Branch metFORMIN 0 Yes [id number] 1000mg Take 1 Univers 1,000 mg 3-04 tablet by ity of tablet 00:00: mouth 2 (two) Medical times Branch daily with meals. losartan 50 0 Yes [id number] 50mg Take 1 Univers mg tablet 3-04 tablet by ity o f 00:00: mouth 00 daily. Medical Branch metFORMIN 2-0 Yes [id number] 1000mg Take 1 Univers 1,000 mg 3-04 tablet by ity of tablet 00:00: mouth 2 (two) Medical times Branch daily with meals. losartan 50 2021-0 Yes [id number] 50mg Take 1 Univers mg tablet 3-04 tablet by ity o f 00:00: mouth 00 daily. Medical Branch metFORMIN 2-0 Yes [id number] 1000mg Take 1 Univers 1,000 mg 3-04 tablet by ity of tablet 00:00: mouth 2 (two) Medical times Branch daily with meals. losartan 50 2021-0 Yes [id number] 50mg Take 1 Univers mg tablet 3-04 tablet by ity o f 00:00: mouth 00 daily. Medical Branch ondansetron 2021-0 Yes Univer s 8 mg tablet 3-03 ity of 00:00: Medical Branch ondansetron 2021-0 Yes Univer s 8 mg tablet 3-03 ity of 00:00: 00 Medical Branch ondansetron 2021-0 Yes Univer s 8 mg tablet 3-03 ity of 00:00: 00 Medical Branch ondansetron 2021-0 Yes Univer s 8 mg tablet 3-03 ity of 00:00: Medical Branch ondansetron 2021-0 Yes Univer s 8 mg tablet 3-03 ity of 00:00: 00 Medical Branch ondansetron 2-0 Yes Univer s 8 mg tablet 3-03 ity of 00:00: 00 Medical Branch cyclobenzap 2021-0 Yes TAKE 1 Univ ers rine 10 mg 2-15 TABLET BY ity of tablet 00:00: MOUTH THREE Medical TIMES Branch DAILY NEEDED FOR SPASMS Diclofenac 2021-0 Yes APPLY 2 Univ ers Sodium 1 % 2-15 GRAMS ity of gel 00:00: TOPICALLY TO THE Medical AFFECTED Branch AREA FOUR TIMES DAILY DIRECTED pregabalin 2021-0 Yes TAKE 1 Unive rs 200 mg 2-15 CAPSULE BY ity of capsule 00:00: MOUTH TWICE Medical DAILY Branch DIRECTED cyclobenzap 2021-0 Yes TAKE 1 Univ ers rine 10 mg 2-15 TABLET BY ity of tablet 00:00: MOUTH THREE Medical TIMES Branch DAILY NEEDED FOR SPASMS Diclofenac 2022-0 Yes APPLY 2 Univ ers Sodium 1 % 2-15 GRAMS ity of gel 00:00: TOPICALLY 00 TO THE Medical AFFECTED Branch AREA FOUR TIMES DAILY DIRECTED pregabalin 2022-0 Yes TAKE 1 Unive rs 200 mg 2-15 CAPSULE BY ity of capsule 00:00: MOUTH TWICE Medical DAILY Branch DIRECTED cyclobenzap 2022-0 Yes TAKE 1 Univ ers rine 10 mg 2-15 TABLET BY ity of tablet 00:00: MOUTH THREE Medical TIMES Branch DAILY NEEDED FOR SPASMS Diclofenac 2022-0 Yes APPLY 2 Univ ers Sodium 1 % 2-15 GRAMS ity of gel 00:00: TOPICALLY 00 TO THE Medical AFFECTED Branch AREA FOUR TIMES DAILY DIRECTED pregabalin 2022-0 Yes TAKE 1 Unive rs 200 mg 2-15 CAPSULE BY ity of capsule 00:00: MOUTH TWICE Medical DAILY Branch DIRECTED cyclobenzap 2022-0 Yes TAKE 1 Univ ers rine 10 mg 2-15 TABLET BY ity of tablet 00:00: MOUTH THREE Medical TIMES Branch DAILY NEEDED FOR SPASMS Diclofenac 2022-0 Yes APPLY 2 Univ ers Sodium 1 % 2-15 GRAMS ity of gel 00:00: TOPICALLY 00 TO THE Medical AFFECTED Branch AREA FOUR TIMES DAILY DIRECTED pregabalin 2022-0 Yes TAKE 1 Unive rs 200 mg 2-15 CAPSULE BY ity of capsule 00:00: MOUTH TWICE Medical DAILY Branch DIRECTED cyclobenzap 2022-0 Yes TAKE 1 Univ ers rine 10 mg 2-15 TABLET BY ity of tablet 00:00: MOUTH THREE Medical TIMES Branch DAILY NEEDED FOR SPASMS Diclofenac 2022-0 Yes APPLY 2 Univ ers Sodium 1 % 2-15 GRAMS ity of gel 00:00: TOPICALLY 00 TO THE Medical AFFECTED Branch AREA FOUR TIMES DAILY DIRECTED pregabalin 2022-0 Yes TAKE 1 Unive rs 200 mg 2-15 CAPSULE BY ity of capsule 00:00: MOUTH 00 TWICE Medical DAILY Branch DIRECTED cyclobenzap 2022-0 Yes TAKE 1 Univ ers rine 10 mg 2-15 TABLET BY ity of tablet 00:00: MOUTH THREE Medical TIMES Branch DAILY NEEDED FOR SPASMS Diclofenac 2022-0 Yes APPLY 2 Univ ers Sodium 1 % 2-15 GRAMS ity of gel 00:00: TOPICALLY TO THE Medical AFFECTED Branch AREA FOUR TIMES DAILY DIRECTED pregabalin Yes TAKE 1 Unive rs 200 mg 2-15 CAPSULE BY ity of capsule 00:00: MOUTH [place] 00 TWICE Medical DAILY Branch DIRECTED budesonide- Yes [id number] 2{puff} Inhale 2 Univers formoteroL 3-27 Puffs 2 ity of (SYMBICORT) 00:00: (two) [place] 160-4.5 00 times Medical mcg/actuati daily. Branch on inhaler budesonide- Yes [id number] 2{puff} Inhale 2 Univers formoteroL 3-27 Puffs 2 ity of (SYMBICORT) 00:00: (two) [place] 160-4.5 00 times Medical mcg/actuati daily. Branch on inhaler budesonide Yes [id number] 2{puff} Inhale 2 Univers formoteroL 3-27 Puffs 2 ity of (SYMBICORT) 00:00: (two) [place] 160-4.5 00 times Medical mcg/actuati daily. Branch on inhaler budesonide- Yes [id number] 2{puff} Inhale 2 Univers formoteroL 3-27 Puffs 2 ity of (SYMBICORT) 00:00: (two) [place] 160-4.5 00 times Medical mcg/actuati daily. Branch on inhaler budesonide Yes [id number] 2{puff} Inhale 2 Univers formoteroL 3-27 Puffs 2 ity of (SYMBICORT) 00:00: (two) [place] 160-4.5 00 times Medical mcg/actuati daily. Branch on inhaler budesonide Yes [id number] 2{puff} Inhale 2 Univers formoteroL 3-27 Puffs 2 ity of (SYMBICORT) 00:00: (two) [place] 160-4.5 00 times Medical mcg/actuati daily. Branch on inhaler esomeprazol 2018- Yes [id number] 40mg Take 40 mg Univers e 20 mg 2-19 by mouth ity of capsule 00:00: daily. [place] 00 Medical Branch esomeprazol 2018-05 Yes [id number] 40mg Take 40 mg Univers e 20 mg 2-19 by mouth ity of capsule 00:00: daily. [place] [facility] esomeprazol 2018-05 Yes [id number] 40mg Take 40 mg Univers e 20 mg 2-19 by mouth ity of capsule 00:00: daily. [place] [facility] esomeprazol 2018-05 Yes [id number] 40mg Take 40 mg Univers e 20 mg 2-19 by mouth ity of capsule 00:00: daily. [place] [facility] esomeprazol 2018-05 Yes [id number] 40mg Take 40 mg Univers e 20 mg 2-19 by mouth ity of capsule 00:00: daily. [place] [facility] esomeprazol 2018-05 Yes [id number] 40mg Take 40 mg Univers e 20 mg 2-19 by mouth ity of capsule 00:00: daily. [address] albuterol 2018-05 Yes [id number] 2{puff} Inhale 2 Univers (PROAIR 2-17 Puffs ity of HFA) 90 00:00: every 6 [place] mcg/actuati 00 (six) Medical on inhaler hours as Branc h needed for Wheezing, Shortness of Breath or Chest tightness. albuterol 2018-05 Yes [id number] 2{puff} Inhale 2 Univers (PROAIR 2-17 Puffs ity of HFA) 90 00:00: every 6 [place] mcg/actuati 00 (six) Medical on inhaler hours as Branc h needed for Wheezing, Shortness of Breath or Chest tightness. albuterol 2018-05 Yes [id number] 2{puff} Inhale 2 Univers (PROAIR 2-17 Puffs ity of HFA) 90 00:00: every 6 [place] mcg/actuati 00 (six) Medical on inhaler hours as Branc h needed for Wheezing, Shortness of Breath or Chest tightness. albuterol 2018-05 Yes [id number] 2{puff} Inhale 2 Univers (PROAIR 2-17 Puffs ity of HFA) 90 00:00: every 6 [place] mcg/actuati 00 (six) Medical on inhaler hours as Branc h needed for Wheezing, Shortness of Breath or Chest tightness. albuterol 2018-05 Yes [id number] 2{puff} Inhale 2 Univers (PROAIR 2-17 Puffs ity of HFA) 90 00:00: every 6 [place] mcg/actuati 00 (six) Medical on inhaler hours as Branc h needed for Wheezing, Shortness of Breath or Chest tightness. albuterol 2018-05 Yes [id number] 2{puff} Inhale 2 Univers (PROAIR 2-17 Puffs ity of HFA) 90 00:00: every 6 [place] mcg/actuati 00 (six) Medical on inhaler hours as Branc h needed for Wheezing, Shortness of Breath or Chest tightness. lancets 2017-05 Yes Use as Unive rs gauge Misc 0-23 directed ity o f 00:00: [place] 00 Medical [place] blood sugar 2017-05 Yes Use as Univ ers diagnostic 0-23 directed ity o f (ACCU-CHEK 00:00: [place] SMARTVIEW 00 Medical TEST STRIP) Branch strip lancets 2017-05 Yes Use as Unive rs gauge Misc 0-23 directed ity o f 00:00: [place] 00 Medical [place] blood sugar 2017-05 Yes Use as Univ ers diagnostic 0-23 directed ity o f (ACCU-CHEK 00:00: [place] SMARTVIEW 00 Medical TEST STRIP) Branch strip lancets 31 2017-05- No Use as Univ ers gauge Misc 0-23 03-30 directed ity of 00:00: 00:00 [place] 00 :00 [facility] Branch blood sugar 2017-05- No Use as Uni vers diagnostic 0-23 03-30 directed ity of (ACCU-CHEK 00:00: 00:00 [place] SMARTVIEW 00 :00 Medical TEST STRIP) Branch strip PredniSONE PredniSONE Yes ZHEN TAPER Univers 20 MG Oral 20 MG Oral 1-18 KATELYN Christianson ity of Tablet Tablet 00:00: M.D. ns - TAKE [place] 00 3 PILLS, Physici BY MOUTH, ans DAILY X 5 DAYSTHEN 2 PILLS DAILY X 5 DAYSTHEN 1 PILL DAILY X 5 DAYS, UNTIL COMPLETE PredniSONE PredniSONE 2013-05 Yes RIN Take 3 [...] Oral MG Oral ity of Tablet Tablet [place] [facility] Simvastatin Simvastatin Yes U nivers TABS TABS ity of [place] [facility] Triamcinolo Triamcinolo Yes U nivers ne ne ity of Acetonide Acetonide [place] CREA CREA Physici ans Zofran TABS Zofran TABS Yes [facility] Hydrocodone Hydrocodone Yes U nivers -Acetaminop -Acetaminop i ty of hen TABS hen TABS [place] [facility] ans Meclizine Meclizine Yes Unive rs HCl TABS HCl TABS ity of [facility] Cipro 500 Cipro 500 Yes Unive rs MG Oral MG Oral ity of Tablet Tablet [place] Phys[facility] ans Immunizations Ordered Filled Immunization Date Status Comments [facility] e Immunization Name Name Influenza Virus 2021-04-12 Completed Universit y of Vaccine 00:00:00 [facility] Influenza Virus 2021-04-12 Completed Universit y of Vaccine 00:00:00 [facility] Influenza Virus 2021-04-12 Completed Universit y of Vaccine 00:00:00 [facility] Influenza Virus 2021-04-12 Completed Universit y of Vaccine 00:00:00 [facility] Influenza Virus 2021-04-12 Completed Universit y of Vaccine 00:00:00 [facility] Influenza Virus 2021-04-12 Completed Universit y of Vaccine 00:00:00 [facility] Influenza Virus 2019-04-22 Completed Universit y of Vaccine Quad .5 mL 00:00:00 [facility] 6+ MO Branch Influenza Virus 2019-04-22 Completed [...] y of Vaccine Quad .5 mL 00:00:00 [place] [facility] IM 6+ MO Branch TDAP 2013-06-09 Completed University of 00:00:00 [facility] TDAP 2013-06-09 Completed University of 00:00:00 [facility] TDAP 2013-06-09 Completed University of 00:00:00 [facility] TDAP 2013-06-09 Completed University of 00:00:00 [facility] TDAP 2013-06-09 Completed University of 00:00:00 [facility] TDAP 2013-06-09 Completed University of 00:00:00 [facility] Vital Signs Vital Name Observation Time Observation Value Comments Source Systolic blood 2021-08-10 19:39:00 132 mm[Hg] Univer sity of pressure [facility] Diastolic blood 2021-08-10 19:39:00 82 mm[Hg] Unive rsity of pressure [facility] Heart rate 2021-08-10 19:39:00 73 /min [facility] Body temperature 2021-08-10 19:39:00 36.44 [facility] Respiratory rate 2021-08-10 19:39:00 18 /min [facility] Body height 2021-08-10 19:39:00 167.6 cm [facility] Body weight 2021-08-10 19:39:00 113.581 kg [facility] BMI 2021-08-10 19:39:00 40.42 kg/m2 [facility] Oxygen saturation in 2021-08-10 19:39:00 97 /min [facility] Arterial blood by [facility] Pulse oximetry Branch Procedures Procedure Date / Time Performed Performing Clinician Sour e CT Spine lumbar 2017-05-30 00:00:00 [place] myelogram [id number] Physicians Encounters Start End Encounter Admission Attending Care Care Encounter Source Date/Time Date/Time Type Type Clinicians Facility Department ID 2021-09-28 2021-09-28 Outpatient Sofia RAMIREZ [facility] [id number] Univers 15:30:00 15:30:00 OSIEL [id number] [facility] [place] [facility] 2021-08-31 2021-08-31 Outpatient R MELINA CARR [facility] [id number] Univers 00:00:00 00:00:00 MELINA CARR [facility] [place] [facility] 2021-08-21 2021-08-21 Outpatient Sofia GREER [facility] [id number] Univers 13:00:00 13:00:00 TIERRA [id number] [facility] [place] [facility] 2021-08-21 2021-08-21 [id number] Univers 13:00:00 13:00:00 TIERRA [facility] [place] [facility] 2021-08-17 2021-08-17 Outpatient TOBI TREVIZO [facility] [id number] Univers 13:00:00 13:00:00 TOBI OLVERA [facility] [place] [facility] 2021-08-17 2021-08-17 Telephone [facility] [id number] Univers 00:00:00 00:00:00 Alfred HEALTH 350.1.13.10 it y of [place] 4.2.7.2.686 Adrien as BORIS?BLEA [id number] [address] [facility] 2021-08-17 2021-08-17 Refill [facility] 1.2.840.114 [id number] Univers 00:00:00 00:00:00 Blessing A HEALTH 350.1.13.10 i ty of [place] 4.2.7.2.686 Adrien as BORIS?BLEA [id number] [address] [facility] 2021-08-16 2021-08-16 Outpatient Sofia GREER [facility] [id number] Univers 12:00:00 12:00:00 TIERRA [id number] [facility] 2021-08-16 2021-08-16 Outpatient R CARLO [facility] [id number] Univers 12:00:00 12:00:00 TIERRA [facility] 2021-08-16 2021-08-16 Telephone [facility] 1.2.840.114 [id number] Univers 00:00:00 00:00:00 Osiel CARLOS 350.1.13.10 i ty [facility] [place] [phone] N[place] dical NAL 188 [facility] 2021-08-14 2021-08-14 Outpatient R MELINA CARR [facility] [id number] Univers 15:18:48 23:59:00 MELINA CARR [facility] 2021-08-10 2021-08-10 Outpatient R ABILIO [facility] [id number] Univers 15:00:00 15:45:32 OSIEL [facility] [place] [facility] 2021-08-10 2021-08-10 Office [facility] [id number] Univers 15:00:00 15:45:32 Visit Osiel CARLOS 350.1.13.10 i ty [facility] [place] [phone] N[place] dical NAL 188 [facility] 2021-08-09 2021-08-09 Refill Doctor [facility] 1.2.840.114 [id number] Univers 00:00:00 00:00:00 Unassigned, PRIMARY 350.1.13.10 ity of [place].2.[place] [phone] N[place] dical [address] [place] 2020-12-06 2020-12-06 Outpatient PERLA BLOCK [id number] [place] 10:45:00 10:45:00 ELLIOT obrien 2020-04-04 2020-04-04 Refill Jesse [facility] 1.2.840.114 [id number] 00:00:00 00:00:00 Leandro Deras PRIMARY 350.1.13.10 CARE 4.2.7.2.686 PAVILLION [id number] 389 2020-03-18 2020-03-18 Outpatient FERGUSON_JO MEHOP MEHOP [address] [place] 02:21:00 02:21:00 HN 1106 [facility] 2020-03-14 2020-03-14 Outpatient FERGUSON_JO MEHOP MEHOP [address] [place] 04:45:00 04:45:00 HN 1102 [facility] 2020-02-26 2020-02-26 Outpatient FERGUSON_JO MEHOP MEHOP [address] [place] 09:48:00 09:48:00 HN 1016 [facility] 2020-02-25 2020-02-25 Outpatient FERGUSON_JO MEHOP MEHOP [address] [place] 01:22:00 01:22:00 HN 1015 [facility] 2019-11-20 2019-11-20 Telephone [facility] [id number] 00:00:00 00:00:00 Leandro Braeden PRIMARY 350.1.13.10 CARE 4.2.7.2.686 PAVILLION [id number] 389 2019-11-13 2019-11-13 Telephone [facility] [id number] 00:00:00 00:00:00 Leandro Braeden PRIMARY 350.1.13.10 CARE 4.2.7.2.686 PAVILLION [id number] 389 2019-09-29 2019-09-29 Patient Doctor [facility] 1.2.840.114 [id number] 00:00:00 00:00:00 Secure Msg Unassigned, PRIMARY 350.1.13.10 [place] CARE 4.2.7.2.686 PAVILLION [id number] 390 2019-09-15 2019-09-15 Telephone [facility] [id number] 00:00:00 00:00:00 Leandro Deras PRIMARY 350.1.13.10 CARE 4.2.7.2.686 PAVILLION [id number] 389 2019-09-10 2019-09-10 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 [facility] 1.2.840.114 [id number] 12:34:34 12:44:34 Visit MULTISPEC 350.1.13.10 IALTY 4.2.7.2.686 CENTER [id number] [place] [facility] 2019-08-18 2019-08-18 Patient Jesse [facility] 1.2.840.114 [id number] 00:00:00 00:00:00 Secure Msg Leandro Deras PRIMARY 350.1.13.10 CARE 4.2.7.2.686 PAVILLION [id number] 390 2019-08-17 2019-08-17 Patient Doctor [facility] 1.2.840.114 [id number] 00:00:00 00:00:00 Secure Msg Unassigned, PRIMARY 350.1.13.10 [place] CARE 4.2.7.2.686 PAVILLION [id number] 389 2019-08-14 2019-08-14 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 Pcp-Lab [facility] 1.2.840.114 [id number] 11:02:02 11:12:02 Visit PRIMARY 350.1.13.10 CARE 4.2.7.2.686 PAVILLION [id number] 2019-08-12 2019-08-12 Telemedici [facility] 1.2.840.114 [id number] 14:32:03 15:02:03 ne Visit Salvatore PRIMARY 350.1.13.10 CARE 4.2.7.2.686 PAVILLION [id number] 390 2019-08-12 2019-08-12 Telephone [facility] [id number] 00:00:00 00:00:00 Leandro Deras PRIMARY 350.1.13.10 CARE 4.2.7.2.686 PAVILLION [id number] 389 2019-08-07 2019-08-10 Telemedici RachelleNEW [facility] 1.2.840.114 [id number] 08:31:45 15:00:40 ne Visit Kay Francis MULTISPEC 350.1.13.10 IALTY 4.2.7.2.686 [place] [id number] [facility] 2019-03-05 2019-03-05 Outpatient Young_J MMG G [id number] [address] [place] 03:44:00 03:44:00 428 [facility] 2017-07-31 2017-07-31 Emergency E [facility] [id number] Medical 19:16:00 19:16:00 [facility] 2017-05-30 2017-05-30 AURELIA Knutson Orth[facility] 3 [id number] [facility] 13:00:00 13:00:00 t; Jinny FONTAINE y of [place] ZEPEDA Physici M.D. ans 2017-04-23 2017-04-23 AURELIA Knutson [facility] [id number] [facility] 09:15:00 09:15:00 t; Jinny FONTAINE of [place] ZEP[place] Physici M.D. ans Results Test Description Test Time Test Comments Results Result Comments Source GLUBED 2018-08-14 11:32:00 Test Item Value Reference Range Interpretation Comme nts GLUBED (test code = GLUBED) 155 mg/dL 70-110 H BASIC METABOLIC [id number] 06:26:00 Test Item Value Reference Range Interpretation [...] CA) 8.0 mg/dl 8.0-10.5 N CBC W/AUTO [id number] 06:04:00 Test Item Value Reference Range Interpretation [...] code = BA#) 0.1 K/mm3 0.0-0.2 N [id number] 05:50:00 Test Item Value Reference Range Interpretation Comments GLUBED (test code = GLUBED) 163 mg/dL 70-110 H [id number] 00:32:00 Test Item Value Reference Range Interpretation Comments GLUBED (test code = GLUBED) 216 mg/dL 70-110 H [id number] 05:57:00 Test Item Value Reference Range Interpretation Comments GLUBED (test code = GLUBED) 147 mg/dL 70-110 H [id number] 00:14:00 Test Item Value Reference Range Interpretation Comments GLUBED (test code = GLUBED) 169 mg/dL 70-110 H [id number] 16:32:00 Test Item Value Reference Range Interpretation Comments GLUBED (test code = GLUBED) 132 mg/dL 70-110 H [id number] 11:51:00 Test Item Value Reference Range Interpretation Comments GLUBED (test code = GLUBED) 170 mg/dL 70-110 H CARDIAC ENZYMES [id number] 08:23:00 Test Item Value Reference Range Interpretation Comments CREATINE KINASE (CK) 28 Units/L 39-308 L (test code = CK) TROPONIN-I (test code <0.02 NG/ML 0.00-0.06 N REFERE NCE RANGE = TROPI) TROPONIN I HEAL THY INDIVIDUALS: < 0.06 ng/mL R/O ISCHE AKHIL: 0.07 - 0.60 ng/ mL CUT-OFF RANGE F OR AMI: 0.60 - 1. 5 ng/mL - XR CHEST 1 [id number] 06:38:00 FAX: Sky Valente MD [phone] [place]: St: [facility] FAX: Jimmie Dobbs [phone] Name: SUDHEER JUAREZ [facility] : 1970 Age/S: 47/M [address] [facility] Unit #: [id number] Loc: E.438 [place], [place] Phys: [place] Vigil [address] Acct: [id number] Dis Date: Status: ADM IN PHONE #: [phone] Exam Date: 08/12/2018 0636 FAX #: [phone] Reason: CHEST PAIN EXAMS: CPT CODE: [id number] XR CHEST 1 V 17102 Location: U19. CHEST, FRONTAL VIEW HISTORY: CHEST PAIN COMPARISON: Chest x-ray 05/17/18. FINDINGS: The lungs are clear without consolidation. No pleural effusion or pneumothorax. The heart size is normal. The bones are unremarkable. IMPRESSION: No evidence of acute cardiopulmonary disease. [id number] Reported and signed by: Augusta Remy M.D. CC: Sky Bartholomew MD; [place] BE Technologist: KAREN CEE Trnnerd Date/Time/By: 08/12/2018 (0638) : By: [email or web address] PAGE 1 Signed Report FAX: Sky Valente MD [phone] [place]: St: ADM FAX: Chilango Dobbs [phone] Name: SUDHEER JUAREZ [facility] : 1970 Age/S: 47/M [address] [facility] #: [id number] Loc: E.438 [place], [place] Phys: [place] Vigil [address] Acct: [id number] Dis Date: Status: ADM IN PHONE #: [phone] Exam Date: 08/12/2018 0636 FAX #: [phone] Reason: CHEST PAIN EXAMS: CPT CODE: [id number] XR CHEST 1 V 49183 <Continued> Orig Print D/T: S: 08/12/2018 (0641) PAGE 2 Signed [id number] 05:48:00 Test Item Value Reference Range Interpretation Comments GLUBED (test code = GLUBED) 155 mg/dL 70-110 H [id number] 04:15:00 Test Item Value Reference Range Interpretation Comments GLUBED (test code = GLUBED) 195 mg/dL 70-110 H [id number] 16:15:00 Test Item Value Reference Range Interpretation Comments GLUBED (test code = GLUBED) 210 mg/dL 70-110 H URINALYSIS [id number] 13:21:00 Test Item Value Reference Range Interpretation [...] = MUCU) TRACE DRUGS OF ABUSE SCREEN [id number] 13:20:00 Test Item Value Reference Interpretation Comments [...] = [place]) concentrati on: 300 ng/mL URINALYSIS [id number] 13:17:00 Test Item Value Reference Range Interpretation [...] UA BACTERIA (test code = NONE BACU) [id number] 11:54:00 Test Item Value Reference Range Interpretation Comments HGBA1C% (test code = HGBA1C%) 5.7 %A1C 4.8-6.0 N ESTIMATED AVERAGE GLUCOSE (test 117 MG/DL code = EAG) [id number] 11:19:00 Test Item Value Reference Range Interpretation Comments GLUBED (test code = GLUBED) 225 mg/dL 70-110 H COMPREHENSIVE METABOLIC [id number] 07:52:00 Test Item Value Reference Range Interpretation [...] 50.0-136.0 N code = ALKP) Comments to Behavioral Science Chair: Patient is currently in the ED waiting [...] LDL) 128 mg/dl 70-130 N Comments to Behavioral Science Chair: Patient is currently in the ED waiting on a [id number] 07:52:00 Test Item Value Reference Range Interpretation Comments MAGNESIUM (test code = MAG) 1.9 mg/dl 1.8-2.4 N Comments to Behavioral Science Chair: Patient is currently in the ED waiting on a bedCBC W/AUTO [id number] 07:31:00 Test Item Value Reference Range Interpretation [...] BA#) 0.0 K/mm3 0.0-0.2 N Comments to Behavioral Science Chair: Patient is currently in the ED waiting on a [id number] 05:55:00 Test Item Value Reference Range Interpretation Comments GLUBED (test code = GLUBED) 215 mg/dL 70-110 H [id number] 00:35:00 Test Item Value Reference Range Interpretation Comments GLUBED (test code = GLUBED) 260 mg/dL 70-110 H COMPREHENSIVE METABOLIC [id number] 18:48:00 Test Item Value Reference Range Interpretation [...] 50.0-136.0 N code = ALKP) COMPREHENSIVE METABOLIC [id number] 18:41:00 Test Item Value Reference Range Interpretation [...] (test Units/L 50.0-136.0 code = ALKP) PROTHROMBIN [id number] 18:36:00 Test Item Value Reference Range Interpretation Comments PROTHROMBIN TIME 12.6 SECONDS 9.9-12.8 N PATIENT (test code = PTP) INTERNATIONAL NORMAL 1.1 0.89-1.14 N THE INR IS TO BE USED RATIO (test code = ONLY FOR MONITORING INR) ORAL ANTICOAGULANTTH ERAPY. THE FOLLOWING A RE SUGGESTED RANGE S FROM THESAN CARLOS [facility] LEGE OF CHEST PHYSICIANS:REJI CATION INR VALUEPROPHYLAXI [...] ANTIBODIES 2.5 - 3 .5 CBC W/AUTO [id number] 18:31:00 Test Item Value Reference Range Interpretation [...] K/mm3 0.0-0.2 N - CT L-SPINE W/O [id number] 18:03:00 FAX: Sagar Troncoso MD [phone] [place]: [place] St: REG Name: SUDHEER JUAREZ [facility] : 1970 Age/S: 47/M [address] [facility] Unit: [id number] [place]: [place] [address] Acct: [id number] Dis Date: Status: REG ER PHONE #: [phone] Exam Date: 08/10/2018 9693 FAX #: [phone] Reason: acute injury, Hx L3-4 fusion EXAMS: CPT CODE: [id number] CT L-SPINE W/O CONTRAST 62127 EXAM: CT LUMBAR SPINE WITHOUT CONTRAST INDICATION: [...] Signed Report (CONTINUED) FAX: Sagar Troncoso MD [phone] [place]: St: REG Name: SUDHEER JUAREZ [facility] : 1970 Age/S: 47/M [address] [facility] Unit: [id number] Loc: [place], [place] Phys: Sagar Peters MD77591 Acct: [id number] Dis Date: Status: REG ER PHONE #: [phone] Exam Date: 08/10/2018 1754FAX #: [phone] Reason: acute injury, Hx L3-4 fusion EXAMS: CPT CODE: [id number] CT L-SPINE W/O CONTRAST 25674 <Continued> Diffuse discogenic disease and facet joint [...] Technologist: MEHUL AWAN Trnscrd Dt/Tm: 08/10/2018 (180) 16 Orig Print D/T: S: 08/10/2018 (1806 PAGE 2 Signed Report- CT HEAD/BRAIN W/O [id number] 17:56:00 FAX: Sagar Troncoso MD [phone] [place]: St: REG Name: SUDHEER JUAREZ [facility] : 1970 Age/S: 47/M [address] [facility] [address] Unit: [id number] Loc: E.ERS [place], [place]: [place] [address] Acct: [id number] Dis Date: Status: REG ER PHONE #: [phone] Exam Date: 08/10/2018 175 FAX #: [phone] Reason: acute injury, +LOC EXAMS: CPT CODE: [id number] CT HEAD/BRAIN W/O CONT 51849 CT HEAD WITHOUT CONTRAST. HISTORY: acute injury, [...] Technologist: MEHUL AWAN Trnscrd Dt/Tm: 08/10/2018 (1755) [email or web address] Orig Print D/T: S: 08/10/2018 (0479 PAGE 1 Signed Report- XR T-SPINE 3 [id number] 17:33:00 FAX: Sagar Troncoso MD [phone] [place]: St: REG Name: SUDHEER JUAREZ [facility] : 1970 Age/S: 47/M [address] [facility] Unit#: [id number] Loc: [place], [place]: [place] [address] Acct: [id number] Dis Date: Status: REG ER PHONE #: [phone] Exam Date: 08/10/2018 1729 FAX #: [phone] Reason: acute injury EXAMS: CPT CODE: [id number] XR T-SPINE 3 VIEWS 92067 Site ID: [id number] HISTORY: Acute injury, back pain IMPRESSION: Normal thoracic kyphosis, no acute fracture or subluxation. No significant spondylosis. Visualized ribs are intact. Spinal epidural leads terminate at the T8-T9 level. at 1733 Reported and signed by: Memo Greer M.D. CC: Sagar Peters MD Technologist: HAI Sharprd Date/Time/By: 08/10/2018 (1733) : By: [email or web address] PAGE 1Signed Report FAX: Sagar Troncoso MD [phone] [place]: St: REG -- Name: SUDHEER JUAREZ [facility] : 1970 Age/S: 47/M [address] [facility] Unit #: [id number] Loc: [place], [place]: [place] [address] Acct: [id number] Dis Date: Status: REG ER PHONE #: [phone] Exam Date: 08/10/2018 1729 FAX #: [phone] Reason: acute injury EXAMS: CPT CODE: [id number] XR T-SPINE 3 VIEWS 31204 <Continued> OrigPrint D/T: S: 08/10/2018 (9573) PAGE 2 Signed Report[U] XRAY SPINE LUMBOSACRAL MIN 4 VWS [id number] 13:57:00 Test Item Value Reference Range Interpretation Comments XR SPINE LUMBOSACRAL EXAM: XR SPINE MIN 4 VWS (test code = LUMBOSACRAL MIN 4 VWS 01777-8) DATE: 05/30/2017 at 1400 hours. INDICATION: Lower back pain. COMPARISON: None available. TECHNIQUE: AP, lateral, coned lateral, LPO and RPO radiographs of the lumbar spine. FINDINGS:5 nonrib bearing, lumbar-type vertebral bodies are present.A presumed spinal cord stimulator battery pack project over the left hip. Its distal leads are excluded from the jlkns-vj-awns.Moderate facet arthropathy is present throughout the mid to lower lumbar spine.There appears to be an intervening disc spacer at the L3-L4 level. IMPRESSION:1. No acute, radiographic abnormality of the lower lumbar spine.2. Advanced facet arthropathy throughout the mid to lower lumbar spine.3. Probable intervening disc spacer at the L3-L4 level. 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
--- NOTE | 2021-08-17 20:23 | RAD REPORT ---
EXAM DESCRIPTION: RAD - Chest Single View - 08/17/2021 8:17 pm CLINICAL HISTORY: CHEST PAIN COMPARISON: Two view chest 06/07/2018 TECHNIQUE: AP portable chest image was obtained 08/17/2021 8:17 pm . FINDINGS: No peripheral mass consolidation. Interstitial markings are mildly prominent but not gross ly different from comparison. Mild interstitial edema or infiltrate could be masked. Loop recorder ov erlies the midline chest. Heart size is upper normal. Pulmonary vasculature within normal limits. No measurable pleural effusion and no pneumothorax. No acute bony abnormality seen. No acute aortic find ings suspected. IMPRESSION: No focal acute lung parenchymal process seen. Baseline interstitial pattern could mask e dontrell edema or infiltrate. Heart size is upper normal. No acute failure or volume overload suspected.
--- NOTE | 2021-08-17 20:24 | RAD REPORT ---
EXAM DESCRIPTION: CT - Head Brain Wo Cont - 08/17/2021 8:09 pm CLINICAL HISTORY: HEADACHE COMPARISON: Head Brain Wo Cont dated 05/09/2018 TECHNIQUE: Axial 5 mm thick images of the head were obtained without IV contrast. All CT scans are performed using dose optimization technique as appropriate and may include automated exposure control or mA/KV adjustment according to patient size. FINDINGS: No intracranial hemorrhage, mass, edema or shift of mid-line structures. No acute infarcti on changes seen. No abnormal extra-axial fluid collections. Ventricles are normal. Minimal volume los s changes are present. Is greater than typically seen for age but not significantly different from 20 18 imaging. Mastoid air cells and visualized portions of the paranasal sinuses are clear. No acute bony findings. IMPRESSION: Negative non-contrast CT head examination for acute finding. No significant change from comparison.
[2021-08-17 20:34] LABS: Absolute Lymphocytes (CBC) 1.9 K/uL (0.7-4.9); Hematocrit 43.8 % (39.6-49.0); Lymphocytes % 21.4 % (15.3-44.8); MPV 11.4 fL (7.6-11.3); RBC Red Blood Cell Count 4.83 M/uL (4.33-5.43)
[2021-08-17 20:41] LABS: Potassium 3.8 mmol/L (3.5-5.1)
[2021-08-17] MEDS ORDERED: ONDANSETRON 4 MG/2 ML VIAL ONE (21:06)
[2021-08-17 21:33] LABS: Troponin High Sensitivity 5.2 pg/mL (<58.9)
[2021-08-17] MEDS ORDERED: ACETAMINOPHEN 500 MG TAB ONE (22:13)
--- NOTE | 2021-08-18 01:09 | ER ---
Nurse's Notes [facility] Name: Matti Juarez Age: 50 yrs Sex: Male : 1970 Arrival Date: 08/17/2021 Time: 19:13 Bed 15 Private MD: Diagnosis: Chest pain, unspecified;Essential (primary) hypertension;Hyperglycemia, unspecified Presentation: 08/17 19:13 Chief complaint: EMS states: pt was outside looking at [place] and started having sm5 sudden sharp chest pain and unable to catch his breath. pt has heart monitor on x3 days due to hx of a fib. follows with cardiology at [facility]. pt states CP better now but complaining of headache. Coronavirus screen: Vaccine status: Patient reports receiving the 2nd dose of the covid vaccine. Ebola Screen: No symptoms or risks identified at this time. Initial Sepsis Screen: Does the patient meet any 2 criteria? No. Patient's initial sepsis screen is negative. Does the patient have a suspected source of infection? No. Patient's initial sepsis screen is negative. Risk Assessment: Do you want to hurt yourself or someone else? Patient reports no desire to harm self or others. Onset of symptoms was August 17, 2021. 19:13 Method Of Arrival: EMS: [facility] 19:13 Acuity: JELENA 3 sm5 Historical: - Allergies: 19:17 Anesthesia; sm5 19:17 Aspirin; sm5 19:17 atorvastatin; sm5 19:17 Iodinated Contrast Media - IV Dye (cardiac arrest); 5 19:17 Requip; 5 19:17 ropinirole HCl; 5 19:17 SHELLFISH; 5 - Home Meds: 19:17 metformin 1,000 mg Oral tab 1 tab 2 times per day [Active]; losartan oral [Active]; sm5 montelukast oral [Active]; - PMHx: 19:17 cardiac arrest; Diabetes - NIDDM; heart catheterization; Hypertension; sm5 - PSHx: 19:17 Cholecystectomy; pain pump implant, RIGHT lower abd; spine fusion; spine stimulator, sm5 LEFT hip; - Immunization history:: Client reports receiving the 2nd dose of the Covid vaccine, Flu vaccine is up to date. - Social history:: Smoking status: Patient denies any tobacco usage or history of. Screenin:19 Abuse screen: Denies threats or abuse. Denies injuries from another. Nutritional sm5 screening: No deficits noted. Tuberculosis screening: No symptoms or risk factors identified. Fall Risk None identified. Assessment: 21:04 General: Appears in no apparent distress. Behavior is cooperative. Pain: Complains of sm5 pain in head. Neuro: No deficits noted. Level of Consciousness is awake, alert, obeys commands, Oriented to person, place, time, situation. Cardiovascular: Capillary refill < 3 seconds Patient's skin is warm and dry. Rhythm is sinus rhythm. Respiratory: No deficits noted. Airway is patent Trachea midline Respiratory effort is even, unlabored. GI: Reports nausea. 22:27 Reassessment: No changes from previously documented assessment. Patient and/or family 5 updated on plan of care and expected duration. Pain level reassessed. 23:48 Reassessment: No changes from previously documented assessment. Patient is alert, sm5 oriented x 3, equal unlabored respirations, skin warm/dry/pink. 08/18 01:23 Reassessment: Patient states feeling better. [facility] Vital Signs: 08/17 19:13 BP 171 / 119; Pulse 97; Resp 20; Temp 97.8(O); Pulse Ox 98% on R/A; Weight 113.4 kg; 5 Height 5 ft. 6 in. (167.64 cm); Pain 10/10; 21:05 BP 147 / 115; Pulse 67; Resp 20; Pulse Ox 98% on R/A; 5 08/18 00:00 BP 146 / 91; Pulse 61; Resp 13; Pulse Ox 98% on R/A; 5 01:00 BP 159 / 105; Pulse 75; Resp 20; Pulse Ox 98% on R/A; 5 08/17 19:13 Body Mass Index 40.35 (113.40 kg, 167.64 cm) [facility] ED Course: 08/17 19:13 Patient arrived in ED. [facility] 19:15 Triage completed. [facility] 19:17 Sary Miller, USMAN is Primary Nurse. [facility] 19:18 Arm band placed on left wrist. EKG completed in triage. Results shown to MD. [facility] 19:19 Patient has correct armband on for positive identification. Placed in gown. Bed in low sm5 position. Side rails up X2. black off worker on. Pulse ox on. NIBP on. 19:32 Junior Pinedo DO is Attending Physician. ms3 19:33 Inserted saline lock: 20 gauge in left antecubital area, using aseptic technique. Blood sm5 collected. 19:33 Initial lab(s) drawn, by me, EKG done, by installation and service technician. sm5 19:55 Basic Metabolic Panel Sent. sm5 19:55 CBC with Diff Sent. sm5 19:55 Troponin HS Sent. sm5 20:11 CT Head Brain wo Cont In Process Unspecified. EDMS 20:22 XRAY Chest (1 view) In Process Unspecified. EDMS 23:09 Troponin High Sensitivity: To be drawn at 1047 Sent. sm5 23:54 Troponin High Sensitivity Sent. sm5 08/18 01:23 No provider procedures requiring assistance completed. IV discontinued, intact, sm5 bleeding controlled, No redness/swelling at site. Pressure dressing applied. Administered Medications: 08/17 21:04 Drug: Zofran (Ondansetron) 4 mg Route: IVP; Site: left antecubital; sm5 22:17 Follow up: Response: Nausea is decreased sm5 22:15 Drug: Tylenol 1000 mg Route: PO; sm5 23:21 Follow up: Response: Pain is decreased sm5 Outcome: 08/18 01:08 Discharge ordered by . ms3 01:24 Discharged to home ambulatory, with family. sm5 01:24 Condition: stable 01:24 Discharge instructions given to patient, family, Instructed on discharge instructions, follow up and referral plans. Demonstrated understanding of instructions, follow-up care. 01:24 Patient left the ED. 5 Signatures: Dispatcher [employer] EDFL Junior Pinedo DO DO ms3 Sary Miller, RN RN sm5
--- NOTE | 2021-08-18 01:09 | EDPHYS ---
Physician Documentation [facility] Name: Matti Juarez Age: 50 yrs Sex: Male : 1970 Arrival Date: 08/17/2021 Time: 19:13 Bed 15 Private MD: ED Physician Junior Pinedo HPI: 08/17 20:36 This 50 yrs old Male presents to ER via EMS with complaints of chest pain. ms3 20:36 The patient or guardian reports chest pain that is located primarily in the substernal ms3 area. Onset: acutely, 1 hour(s) ago. The pain does not radiate. Associated signs and symptoms: The patient has no apparent associated signs or symptoms. The chest pain is described as sore. Duration: The patient or guardian reports multiple episodes, the episodes last approximately 1 hour(s). Modifying factors: The symptoms are alleviated by nothing. the symptoms are aggravated by nothing. Severity of pain: At its worst the pain was severe in the emergency department the pain has improved markedly. 50-year-old male with past medical history of atrial fibrillation, TIA, intracranial hemorrhage, hypertension, diabetes presents for chest pain that began 1 hour prior to arrival. Patient states his pain is a 3 or 4/10. Patient states the pain was severe on onset. Patient also notes a headache and nausea. Patient denies alleviating or inciting factors. Patient states he has had intermittent chest pain for the previous 3 months. Patient currently is seeing cardiology and wearing a heart monitor.. Historical: - Allergies: 19:17 Anesthesia; sm5 19:17 Aspirin; sm5 19:17 atorvastatin; sm5 19:17 Iodinated Contrast Media - IV Dye (cardiac arrest); sm5 19:17 Requip; sm5 19:17 ropinirole HCl; sm5 19:17 SHELLFISH; sm5 - Home Meds: 19:17 metformin 1,000 mg Oral tab 1 tab 2 times per day [Active]; losartan oral [Active]; sm5 montelukast oral [Active]; - PMHx: 19:17 cardiac arrest; Diabetes - NIDDM; heart catheterization; Hypertension; sm5 - PSHx: 19:17 Cholecystectomy; pain pump implant, RIGHT lower abd; spine fusion; spine stimulator, sm5 LEFT hip; - Immunization history:: Client reports receiving the 2nd dose of the Covid vaccine, Flu vaccine is up to date. - Social history:: Smoking status: Patient denies any tobacco usage or history of. ROS: 20:36 Constitutional: Negative for fever, and chills. Neck: Negative for injury, pain, and ms3 swelling. 20:36 Respiratory: Negative for shortness of breath, cough, wheezing, and pleuritic chest pain, Back: Negative for injury and pain, Skin: Negative for injury, rash, and discoloration, Neuro: Negative for headache, weakness, numbness, tingling. 20:36 Cardiovascular: Positive for chest pain. 20:36 All other systems are negative. Exam: 19:18 ECG was reviewed by the Attending Physician. ms3 20:40 Constitutional: This is a well developed, well nourished patient who is awake, alert, ms3 and in no acute distress. Head/Face: Normocephalic, atraumatic. Chest/axilla: Normal chest wall appearance and motion. Nontender with no deformity. Cardiovascular: Regular rate and rhythm with a normal S1 and S2. No gallops, murmurs, or rubs. Normal PMI, no JVD. No pulse deficits. Respiratory: Lungs have equal breath sounds bilaterally, clear to auscultation and percussion. No rales, rhonchi or wheezes noted. No increased work of breathing, no retractions or nasal flaring. Abdomen/GI: Soft, non-tender, with normal bowel sounds. No distension or tympany. No guarding or rebound. No evidence of tenderness throughout. Back: No spinal tenderness. No costovertebral tenderness. Full range of motion. Skin: Warm, dry with normal turgor. Normal color with no rashes, no lesions, and no evidence of cellulitis. MS/ Extremity: Pulses equal, no cyanosis. Neurovascular intact. Full, normal range of motion. Psych: Awake, alert, with orientation to person, place and time. Behavior, mood, and affect are within normal limits. Vital Signs: 19:13 BP 171 / 119; Pulse 97; Resp 20; Temp 97.8(O); Pulse Ox 98% on R/A; Weight 113.4 kg; sm5 Height 5 ft. 6 in. (167.64 cm); Pain 10/10; 21:05 BP 147 / 115; Pulse 67; Resp 20; Pulse Ox 98% on R/A; [facility] 08/18 00:00 BP 146 / 91; Pulse 61; Resp 13; Pulse Ox 98% on R/A; [facility] 01:00 BP 159 / 105; Pulse 75; Resp 20; Pulse Ox 98% on R/A; 5 08/17 19:13 Body Mass Index 40.35 (113.40 kg, 167.64 cm) [facility] MDM: 08/17 19:44 Patient medically screened. ms3 20:40 Differential diagnosis: abnormal EKG, coronary artery disease chest wall pain, stable ms3 angina. 08/18 01:09 HEART Score: History: Slightly Suspicious (0), ECG: Normal (0), Age: > 45 and < 65 ms3 years (1), Risk Factors: > or = 3 Risk factors for atherosclerotic disease (2), Troponin: < or = 1 x Normal Limit (0). 01:09 Data reviewed: vital signs, nurses notes, lab test result(s), EKG, radiologic studies. 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 Counseling: I had a detailed discussion with the patient and/or guardian regarding: the historical points, exam findings, and any diagnostic results supporting the discharge/admit diagnosis, lab results, radiology results, the need for outpatient follow up, to return to the emergency department if symptoms worsen or persist or if there are any questions or concerns that arise at home. ED course: Discussed labs, EKG, chest x-ray, physical exam findings with patient. Discussed observation versus discharge with patient. Through shared decision-making decision for discharge was made. Patient to follow-up with his primary care physician in 1 to 2 days. All questions were answered. Return precautions discussed include worsening symptoms, or any other concerns. On reevaluation patient is alert and oriented x4, no apparent distress, nontoxic, ambulatory emergency primary, without chest pain.. 08/17 19:47 Order name: Basic Metabolic Panel; Complete Time: 21:49 ms3 08/17 19:47 Order name: CBC with Diff; Complete Time: 20:54 ms3 08/17 19:47 Order name: Troponin HS; Complete Time: 21:49 ms3 08/17 19:47 Order name: XRAY Chest (1 view); Complete Time: 20:34 ms3 08/17 19:47 Order name: Troponin High Sensitivity: To be drawn at 1047 ms3 08/17 23:46 Order name: Troponin High Sensitivity; Complete Time: 00:57 EDMS 08/17 19:47 Order name: EKG; Complete Time: 19:48 ms3 08/17 19:47 Order name: Cardiac monitoring; Complete Time: 19:55 ms3 08/17 19:47 Order name: EKG - Nurse/Tech; Complete Time: 19:55 ms3 08/17 19:47 Order name: IV Saline Lock; Complete Time: 19:55 ms3 08/17 19:47 Order name: Labs collected and sent; Complete Time: 19:55 ms3 08/17 19:48 Order name: CT Head Brain wo Cont; Complete Time: 20:34 ms3 08/17 19:47 Order name: O2 Per Protocol; Complete Time: 19:55 ms3 08/17 19:47 Order name: O2 Sat Monitoring; Complete Time: 19:55 ms3 EC/07 19:18 Rate is 84 beats/min. Rhythm is regular. Left axis deviation noted. Clinical ms3 impression: NSR with LAD. Interpreted by me. Administered Medications: 21:04 Drug: Zofran (Ondansetron) 4 mg Route: IVP; Site: left antecubital; sm5 22:17 Follow up: Response: Nausea is decreased sm5 22:15 Drug: Tylenol 1000 mg Route: PO; sm5 23:21 Follow up: Response: Pain is decreased sm5 Disposition Summary: 08/18/21 01:08 Discharge Ordered Location: Home ms3 Condition: Stable ms3 Diagnosis - Chest pain, unspecified ms3 - Essential (primary) hypertension ms3 - Hyperglycemia, unspecified ms3 Followup: ms3 - With: Private Physician - When: 1 - 2 days - Reason: Re-evaluation by your physician Discharge Instructions: - Discharge Summary Sheet ms3 - Hypertension, Adult ms3 - Nonspecific Chest Pain, Adult, [id number] ms3 Forms: - Medication Reconciliation Form ms3 - Thank You Letter ms3 - Antibiotic Education ms3 - Prescription Opioid Use ms3 Signatures: Dispatcher [employer] EDMS Junior Pinedo DO DO ms3 Sary Miller RN RN sm5 Brown, Gabrielle, PA PA sb3
--- NOTE | 2021-08-18 07:46 | EKG ---
Test Date: 2021-08-17 Test Time: 19:18:54 Hopper Operator: LEONELA MEASUREMENT RESULTS: Intervals: Rate: 84 DE: 148 QRSD: 90 QT: 340 QTc: 401 [place]: P: 30 DE: 148 QRS: -57 T: 26 INTERPRETIVE STATEMENTS: Normal sinus rhythm Left axis deviation Abnormal ECG Compared to ECG 05/27/2018 03:35:48 Left-axis deviation now present Sinus arrhythmia no longer present Electronically Signed On 08-18-21 07:45:51 CDT by Santosh Sharma
[2021-08-18 08:29] VITALS: TEMP 97.8; O2SAT 98
[2021-08-18 08:34] VITALS: BP 159/105
== END 2021-08-18 01:24 | disposition home or self-care (01) ==
LOC: ER 19:05
DX: I10 Essential (primary) hypertension (principal); E11.65 Type 2 diabetes mellitus with hyperglycemia; R51.9 Headache, unspecified; R11.0 Nausea; Z88.4 Allergy status to anesthetic agent; Z88.6 Allergy status to analgesic agent; Z88.8 Allergy status to other drugs, medicaments and biological substances; Z91.013 Allergy to seafood; Z91.041 Radiographic dye allergy status
CPT/HCPCS: 93005; 85025; 80048; 36415; 84484 ×2; 70450; 71045; 96374; 99285; J2405

== ENCOUNTER 2022-10-25 12:14 | Emergency (ER) | payer OTHER ==
--- OUTSIDE RECORDS SUMMARY | 2022-10-25 12:37 | XMS REPORT | Continuity of Care Document ---
:1970 Author Organization [facility] t Address [address] [address] [place] [address] Care Team Providers Name Role Phone NONE Primary Care Physician Unavailable DILIP BOLTON Attending Clinician Unavailable Blessing Murphy Attending Clinician Hoang BRYSON, Dilip Attending Clinician Jeremy BRYSON, Maggie Attending Clinician Alfred Khan MD Attending Clinician TEREZA MAGALLANES Attending Clinician Unavailable CASSY CORRIGAN Attending Clinician Unavailable CINTHIA Attending Clinician Unavailable Kay Bush MD Attending Clinician Doctor Unassigned, [place] Attending Clinician Unavailable ADITYA CHENG Attending Clinician Unavailable BLESSING YANES Attending Clinician Unavailable Mariola Romero Attending Clinician Unavailable Jacqui Gómez LVN Attending Clinician Unavailable Lab, Ang - Db Attending Clinician Unavailable Ashley Rodriguez RN Attending Clinician Unavailable Yissel Kelly Attending Clinician Unavailable Jany Vaughan Attending Clinician TAO TREVIZO Attending Clinician Unavailable Tao Trevizo DO Attending Clinician KAY BUSH Attending Clinician Unavailable TIERRA MATOS Attending Clinician Unavailable SOHA KNOX Attending Clinician Unavailable PRINCESS ZACARIAS Attending Clinician Unavailable SHANNAN WILCOX Attending Clinician Unavailable Cass Crespo MD Attending Clinician CASS CRESPO Attending Clinician Unavailable Therapist, Adc Respiratory Attending Clinician Unavailable Desean Gay MD Attending Clinician DESEAN GAY Attending Clinician Unavailable Arely Morales OD Attending Clinician ARELY MORALES Attending Clinician Unavailable Sindy Oneill MD Attending Clinician SINDY ONEILL Attending Clinician Unavailable Tierra Matos MD Attending Clinician TOBI OLVERA Attending Clinician Unavailable TOBI OVLERA Attending Clinician Unavailable Soha Knox MD Attending Clinician JUVE DEAN Attending Clinician Unavailable ELLIOT BLOCK Attending Clinician Unavailable Lab, Adc Fam Pob I Attending Clinician Unavailable Matt Solano Attending Clinician MATT CULVER Attending Clinician Unavailable Joel Coppola DO Attending Clinician HAFSA SAEED Attending Clinician Unavailable BAO EMERY Attending Clinician Unavailable PANKAJ MEDINA Attending Clinician Unavailable Leandro Molina MD Attending Clinician Unavailable DOMINGO AVALOS Attending Clinician Unavailable SEAN METZ Attending Clinician Unavailable LORENE MONTANO Attending Clinician Unavailable UNKNOWN, ATTENDING Attending Clinician Unavailable Vtc-Lab Attending Clinician Unavailable Samir Conner MD Attending Clinician SAMIR CONNER Attending Clinician Unavailable Pcp-Lab Attending Clinician Unavailable Unknown, Attending Attending Clinician Unavailable Pb BRYSON, Salvatore Attending Clinician MAME NY Attending Clinician Unavailable Catherine MURILLO, Johan Attending Clinician Trell Villagomez MD Attending Clinician Brian Hatfield MD, Mame Attending Clinician Rosanne Pino MD Attending Clinician SHANNEN SIN Attending Clinician Unavailable ALYSSA WU Attending Clinician Unavailable Juan Butler MD Attending Clinician Marleen Attending Clinician Unavailable PATI HONEYCUTT Attending Clinician Unavailable Elver Cyr MD Attending Clinician [phone] Sean Metz MD Attending Clinician Nicky Longo RN Attending Clinician Mary Howell MD Attending Clinician Mikey Marquez MD Attending Clinician [phone] Emiliano Cheung MD Attending Clinician Sean Antoine Attending Clinician Unavailable ZHEN ZEPEDA M.D. Attending Clinician Unavailable RICHARD BRYAN Attending Clinician Unavailable JUMANA SOLO Attending Clinician Unavailable MATT RAMOS Attending Clinician Unavailable MIKAELA MAN Attending Clinician Unavailable STEVEN WILLINGHAM Attending Clinician Unavailable KERRY PUTNAM Attending Clinician Unavailable Talat Abdul Attending Clinician Unavailable Driss Bain Attending Clinician Unavailable CINTHIA Admitting Clinician Unavailable BLESSING YANES Admitting Clinician Unavailable Mariola Romero Admitting Clinician Unavailable CASS CRESPO Admitting Clinician Unavailable SINYD ONEILL Admitting Clinician Unavailable Marleen Admitting Clinician Unavailable Mikey Marquez MD Admitting Clinician [phone] Sean Antoine Admitting Clinician Unavailable MATT RAMOS Admitting Clinician Unavailable Payers Payer Name Policy Type Policy Number Effective Date Expiration Date Enrico HERNANDEZ/[facility] DUAL [id number] 2021 COMP HMO D SNP 00:00:00 [place] [id number] 2018 00:00:00 [facility] - [id number] DUAL COMPLETE - DUAL ELIGIBLE - SNP (MEDICARE-MEDICAID REPLACEMENT HMO) [employer]IG[employer] TOTAL CARE [id number] 2020 MEDICARE HMO DSNP 00:00:00 MEDICARE-PART B 5 [id number] 2020 00:00:00 [facility] [id number] 2017 DUAL COMPLETE 00:00:00 [place]: ACS - [id number] TMHP - TRADITIONAL Problems Condition Condition Condition Status Onset Resolution Last Treating Co mments Source Name Details Category Date Date Treatment Clinician Date Fatty Fatty Disease Active 2021-05 Univers liver liver 0-06 ity of 00:00: [place] [address] Medical Branch Elevated Elevated Disease Active Unive rs AST (SGOT) AST (SGOT) 9-26 it y of 00:00: [place] [facility] History of History of Disease Active U nivers transient transient 5-05 ity of ischemic ischemic 00:00: [place] attack attack 00 Medical (TIA) (TIA) Branch Chest pain Chest pain Disease Active U nivers 7-23 ity of 00:00: [place] [address] Medical Branch Generalize Generalize Disease Active 2017-05 M ethodi d weakness d weakness 07-05 st 00:00: Hospita 00 l Arthralgia Arthralgia Disease Active 2017-05 M ethodi of of 2-20 st multiple multiple 00:00: Hospit a sites sites 00 l Nonspecifi Nonspecifi Disease Active 2017-05 U nivers c chest c chest 0-17 ity of pain pain 00:00: [place] 00 Medical Branch Obesity Obesity Disease Active 2017-05 Methodi (BMI (BMI 0-17 st 30-39.9) 30-39.9) 00:00: Hospit a 00 l Cellulitis Cellulitis Disease Active M ethodi 8-11 st 00:00: Hospita 00 l Occlusion Occlusion Disease Recurre Un alfonso and and nce 730 ity of stenosis stenosis 00:00: [place] of of 00 Medical multiple multiple Branch and and 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 Type 2 Type 2 Disease Recurre Univers diabetes diabetes nce 7-30 ity of mellitus mellitus 00:00: [place] with other with other 00 Me dical specified specified Bran ch complicati complicati on on SANDHYA SANDHYA Disease Recurre Univers (obstructi (obstructi nce 730 it y of ve sleep ve sleep 00:00: [place] apnea) apnea) 00 Medical Branch Essential Essential Disease Active Met hodi hypertensi hypertensi 12-09 st on on 00:00: Hospita 00 l Mixed Mixed Disease Active Methodi hyperlipid hyperlipid 12-[address] emia emia 00:00: Hospita 00 l Chest Chest Disease Active 2016-05 Methodi pain, rule pain, rule 0-01 st out acute out acute 00:00: Hosp pam myocardial myocardial 00 l infarction infarction History of History of Problem Resolve [place] Diabetes Diabetes d Physic i mellitus mellitus ans History of History of Problem Resolve [place] essential essential d Phys ici hypertensi hypertensi an s on on History of History of Problem Resolve [place] hyperchole hyperchole d Ph ysici sterolemia sterolemia an s Dermatitis Dermatitis Problem Active U T Physici ans [place] Sic[place] Problem Active UT syndrome syndrome Physic i ans Need for Need for Problem Active [facility] hepatitis hepatitis Phys ici C C ans screening screening test test Screening Screening Problem Active [facility] for skin for skin Physic i condition condition ans Low back Low back Problem Active [facility] pain pain Physici ans Allergies, Adverse Reactions, Alerts Allergy Allergy Status Severity Reaction(s) Onset Inactive Treating Comm ents Source Name Type Date Date Clinician Seafood/ Food Active Anaphylaxis 2019-0 Uni vers Fish Allergy 7-23 ity of 00:00: [place] 00 Medical Branch SEAFOOD/ Food Active High Anaphylaxis 2019-0 Uni vers FISH 7-23 ity of 00:00: [place] 00 Medical Branch lisinopr DA Active [place] 2019-0 [facility] iodine DA Active SV 2019-0 [facility] 4-05 [facility] 00:[facility]: d [facility] lorazepa DA Active [place] 2019-0 [facility] m 4-05 [facility] 00:[facility]: d [facility] aspirin DA Active [place] 2019-0 [facility] 4-05 [facility] 00:[facility]: d [facility] ropiniro DA Active [place] 2019-0 [facility] le 4-05 [facility] 00:[facility]: d [facility] lisinopr DA Active [place] 2019-0 [facility] il 3-31 [facility] 00:[facility]: d [facility] iodine DA Active SV 2019-0 [facility] 3-31 [facility] 00:00: d 00 [facility] lorazepa DA Active MO 2019-0 [facility] m 3-31 [facility] 00:[facility]: d [facility] aspirin DA Active [place] 2019-0 [facility] 3-31 [facility] 00:[facility]: d 00 [facility] ropiniro DA Active [place] 2019-0 [facility] le 3-31 [facility] 00:[facility]: d 00 [facility] iodine DA Active SV 2019-0 [facility] 1-05 [facility] 00:00: d 00 [facility] lisinopr DA Active [place] 2019-0 [facility] il 1- [facility] 00:[facility]: d [facility] iodine DA Active [place] 2019-0 [facility] 1- [facility] 00:[facility]: d 00 [facility] lorazepa DA Active [place] 2019-0 [facility] m 1- [facility] 00:[facility]: d [facility] aspirin DA Active [place] 2019-0 [facility] 1- [facility] 00:[facility]: d 00 [facility] ropiniro DA Active [place] 2019-0 [facility] le 1- [facility] 00:[facility]: d [facility] Lisinopr Propensi Active Cough 2017- Persisten Uni vers il ty to 0-17 t cough ity of adverse 00:00: [place] reaction 00 Medical s to Branch drug LISINOPR DRUG Active Med COUGH 2018- Univers IL INGREDI 0-17 ity of 00:00: [place] 00 Medical Branch lorazepa DA Active MO 2018-1 [facility] m 0-14 [facility] 00:00: d 00 [facility] lisinopr DA Active [place] 2018-0 [facility] il 8-25 Clear 00:00: [place] 00 [facility] iodine DA Active [place] 2018-0 [facility] 8-25 Clear 00:00: [place] 00 [facility] aspirin DA Active [place] 2018-0 [facility] 8-25 Clear 00:00: [place] 00 [facility] ropiniro DA Active [place] 2018-0 [facility] le 8-25 Clear 00:00: [place] 00 [facility] Atorvast Propensi Active Other - See 0 CoughCou g Univers atin ty to comments 730 h ity of adverse 00:00: [place] reaction 00 Medical s Branch ATORVAST DRUG Active Low Unknown-Cmnt Un alfonso ATIN INGREDI 12-09 ity of 00:00: [place] 00 Medical Branch Atorvast Propensi Active Other (See Cough Me thodi atin ty to Comments) 12-09 st adverse 00:00: Hospita reaction 00 l s to drug Aspirin Propensi Active Other - See GI Un alfonso ty to comments 10-11 bleedingO ity o f adverse 00:00: ther [place] reaction 00 reaction( Medic al s s): GI Branch BleedingG I bleeding Shellfis Propensi Active Anaphylaxis Cardiac Univers h ty to 10-11 arrest ity of Derived adverse 00:00: [place] reaction 00 Medical s Branch ASPIRIN DRUG Active High Other-Cmnt 0 Unive rs INGREDI 10-11 ity of 00:00: [place] 00 Medical Branch ROPINIRO DRUG Active High Other-Cmnt 0 Univ ers LE INGREDI 10-11 ity of 00:00: [place] 00 Medical Branch SHELLFIS DRUG Active High Palpitations Un alfonso H INGREDI 10-11 ity of DERIVED 00:00: [place] 00 Medical Branch Aspirin Propensi Active GI Bleeding GI Me thodi ty to 10-[address] adverse 00:00: Hospita reaction 00 l s to drug Other Propensi Active Anesthesi Metho di ty to 10-11 a: during st adverse 00:00: [facility] a reaction 00 er and l s back surgery pt went into cardiac arrest. ([facility]) . Ropiniro Propensi Active 2017-0 Hypotensi Met hodi le ty to 10-[address] adverse 00:00: days. Hospita reaction 00 l s to drug Shellfis Propensi Active Anaphylaxis 2017- Cardiac Methodi h ty to 10-[address] Derived adverse 00:00: Hospita reaction 00 l s to drug Iodine Propensi Active Hives IV iodine Unive rs ty to 05-19 and ity of adverse 00:00: iodine [place] reaction 00 -Cardiac Medica l s arrest Branch IODINE DRUG Active Hives Univers INGREDI 05-19 ity of 00:00: [place] 00 Medical Branch Iodine Propensi Active Hives IV iodine Metho di ty to 05-[address] adverse 00:00: iodine Hospita reaction 00 -Cardiac l s to arrest drug Iodine drug Active [facility] SOLN allergy Physici ans Family History Family Member Diagnosis Comments Start Date Stop Date Source Maternal grandfather No Known Problems [facility] Paternal grandfather No Known Problems [facility] Paternal grandmother No Known Problems [facility] Natural father Hypertension [facility] Natural father Stroke [facility] Natural father Diabetes type II [facility] Maternal grandmother Cancer [facility] Maternal grandmother Diabetes [facility] Natural mother Diabetes [facility] Natural mother Hypertension [facility] Natural mother Stroke [facility] Natural sister Cancer [facility] Natural sister Diabetes type II Meth [facility] Natural sister Ovarian cancer Method [facility] Natural brother Leukemia [facility] Social History Social Habit Start Date Stop Date Quantity Comments Source Gender identity [facility] Sexual orientation Method [facility] Exposure to 2022-03-24 2022-04-03 Not sure University of SARS-CoV-2 (event) 00:00:00 13:26:00 [facility] Tobacco use and 2022-02-02 2022-02-02 Smokeless Universit y of exposure 00:00:00 00:00:00 tobacco non-user [facility] History of Social 2019-01-02 2019-01-[address] function 00:00:00 00:00:00 Hospital Alcohol intake 2018-05-01 2018-05-01 Current Buddhist 00:00:00 00:00:00 non-drinker of Hospital alcohol (finding) Sex Ass[birth year] At [birth year] Buddhist 00:00:00 00:00:00 Hospital Smoking Status Start Date Stop Date Source Never smoked tobacco [facility] Medications Ordered Filled Start Stop Current Ordering Indication Dosage Frequency Signature Comments Components Source Medication Medication Date Date Medication? Clinician (SIG) Name Name omeprazole 2022-0 Yes [id number] 20mg Take 1 Univers 20 mg 6-02 capsule by ity of capsule 00:00: mouth in [place] the morning. Branch MUST BE SEEN FOR FURTHER REFILLS omeprazole 2022-0 Yes [id number] 20mg Take 1 Univers 20 mg 6-02 capsule by ity of capsule 00:00: mouth in [place] the morning. Branch MUST BE SEEN FOR FURTHER REFILLS montelukast 2022-0 Yes [id number] 10mg Take 1 Univers 10 mg 6-02 tablet by ity of tablet 00:00: mouth in [place] the morning. Branch MUST BE SEEN FOR FURTHER REFILLS omeprazole 2022-0 Yes [id number] 20mg Take 1 Univers 20 mg 6-02 capsule by ity of capsule 00:00: mouth in [place] the morning. Branch MUST BE SEEN FOR FURTHER REFILLS montelukast 2022-0 Yes [id number] 10mg Take 1 Univers 10 mg 6-02 tablet by ity of tablet 00:00: mouth in [place] the morning. Branch MUST BE SEEN FOR FURTHER REFILLS omeprazole 2022-0 Yes [id number] 20mg Take 1 Univers 20 mg 6-02 capsule by ity of capsule 00:00: mouth in [place] the morning. Branch MUST BE SEEN FOR FURTHER REFILLS montelukast 2022-0 Yes [id number] 10mg Take 1 Univers 10 mg 6-02 tablet by ity of tablet 00:00: mouth in [place] the morning. Branch MUST BE SEEN FOR FURTHER REFILLS metFORMIN 2022-0 Yes [id number] 1000mg Take 1 Univers 1,000 mg 4-26 tablet by ity of tablet 00:00: mouth in [place] the morning Branch and 1 tablet in the evening. Take with meals. MUST BE SEEN FOR FURTHER REFILLS metFORMIN 2022-0 Yes [id number] 1000mg Take 1 Univers 1,000 mg 4-26 tablet by ity of tablet 00:00: mouth in [place] the morning Branch and 1 tablet in the evening. Take with meals. MUST BE SEEN FOR FURTHER REFILLS metFORMIN 2022-0 Yes [id number] 1000mg Take 1 Univers 1,000 mg 4-26 tablet by ity of tablet 00:00: mouth in [place] 00 the Medical morning Branch and 1 tablet in the evening. Take with meals. MUST BE SEEN FOR FURTHER REFILLS metFORMIN 2022-0 Yes [id number] 1000mg Take 1 Univers 1,000 mg 4-26 tablet by ity of tablet 00:00: mouth in [place] [address] the Medical morning Branch and 1 tablet in the evening. Take with meals. MUST BE SEEN FOR FURTHER REFILLS metFORMIN 2022-0 Yes [id number] 1000mg Take 1 Univers 1,000 mg 4-26 tablet by ity of tablet 00:00: mouth in [place] [address] the Medical morning Branch and 1 tablet in the evening. Take with meals. MUST BE SEEN FOR FURTHER REFILLS metFORMIN 2022-0 Yes [id number] 1000mg Take 1 Univers 1,000 mg 4-26 tablet by ity of tablet 00:00: mouth in [place] [address] the [facility] morning [place] and 1 tablet in the evening. Take with meals. MUST BE SEEN FOR FURTHER REFILLS metFORMIN 2022-0 Yes [id number] 1000mg Take 1 Univers 1,000 mg 4-26 tablet by ity of tablet 00:00: mouth in [place] [address] the [facility] morning [place] and 1 tablet in the evening. Take with meals. MUST BE SEEN FOR FURTHER REFILLS fluticasone 2022-0 Yes [id number] 1{spray Use 1 Univers propionate 4-21 } [place] in ity o f 50 00:00: each [place] mcg/actuati 00 nostril in Me dical on nasal the Branch spray morning and 1 [place] in the evening. fluticasone 2022-0 Yes [id number] 1{spray Use 1 Univers propionate 4-21 } [place] in ity o f 50 00:00: each [place] mcg/actuati 00 nostril in Me dical on nasal the Branch spray morning and 1 [place] in the evening. fluticasone 2022-0 Yes [id number] 1{spray Use 1 Univers propionate 4-21 } [place] in ity o f 50 00:00: each [place] mcg/actuati 00 nostril in Me dical on nasal the Branch spray morning and 1 [place] in the evening. fluticasone 2022-0 Yes [id number] 1{spray Use 1 Univers propionate 4-21 } [place] in ity o f 50 00:00: each [place] mcg/actuati 00 nostril in Me dical on nasal the Branch spray morning and 1 [place] in the evening. fluticasone 2022-0 Yes [id number] 1{spray Use 1 Univers propionate 4-21 } [place] in ity o f 50 00:00: each [place] mcg/actuati 00 nostril in Me dical on nasal the Branch spray morning and 1 [place] in the evening. fluticasone 2022-0 Yes [id number] 1{spray Use 1 Univers propionate 4-21 } [place] in ity o f 50 00:00: each [place] mcg/actuati 00 nostril in Me dical on nasal the Branch spray morning and 1 [place] in the evening. fluticasone 2022-0 Yes [id number] 1{spray Use 1 Univers propionate 4-21 } [place] in ity o f 50 00:00: each [place] mcg/actuati 00 nostril in Me dical on nasal the Branch spray morning and 1 [place] in the evening. fluticasone 2022-0 Yes [id number] 1{spray Use 1 Univers propionate 4-21 } [place] in it o f 50 00:00: each [place] mcg/actuati 00 nostril in Me dical on nasal the Branch spray morning and 1 [place] in the evening. fluticasone 2022-0 Yes [id number] 1{spray Use 1 Univers propionate 4-21 } [place] in ity o f 50 00:00: each [place] mcg/actuati 00 nostril in Me dical on nasal the Branch spray morning and 1 [place] in the evening. fluticasone 2022-0 Yes [id number] 1{spray Use 1 Univers propionate 4-21 } [place] in ity o f 50 00:00: each [place] mcg/actuati 00 nostril in Me dical on nasal the Branch spray morning and 1 [place] in the evening. fluticasone 2022-0 Yes [id number] 1{spray Use 1 Univers propionate 4-21 } [place] in ity o f 50 00:00: each [place] mcg/actuati 00 nostril in Me dical on nasal the Branch spray morning and 1 [place] in the evening. fluticasone 2022-0 Yes [id number] 1{spray Use 1 Univers propionate 4-21 } [place] in ity o f 50 00:00: each [place] mcg/actuati 00 nostril in Me dical on nasal the Branch spray morning and 1 [place] in the evening. fluticasone 2022-0 Yes [id number] 1{spray Use 1 Univers propionate 4-21 } [place] in ity o f 50 00:00: each [place] mcg/actuati 00 nostril in Me dical on nasal the Branch spray morning and 1 [place] in the evening. metoprolol 2022-0 3- No 25mg Take 25 mg Univers tartrate 25 2-20 02-20 by mouth ity of mg tablet 09:42: 00:00 in the [place] 57 :00 morning Medical and 25 mg Branch in the evening. Patient takes half tablet twice daily metoprolol 2022-0 Yes [id number] 12.5mg Take 0.5 Univers tartrate 25 2-20 tablets by it y of mg tablet 00:00: [facility] Branch and 0.5 tablets in the evening. Patient takes half tablet twice daily losartan 50 2022-0 Yes [id number] 50mg Take 1 Univers mg tablet 2-20 tablet by ity o f 00:00: mouth in [place] 00 the Medical morning. Branch metoprolol 2022-0 Yes [id number] 12.5mg Take 0.5 Univers tartrate 25 2-20 tablets by it y of mg tablet 00:00: [facility] morning Branch and 0.5 tablets in the evening. Patient takes half tablet twice daily losartan 50 2022-0 Yes [id number] 50mg Take 1 Univers mg tablet 2-20 tablet by ity o f 00:00: mouth in [place] 00 the Medical morning. Branch metoprolol 2022-0 Yes [id number] 12.5mg Take 0.5 Univers tartrate 25 2-20 tablets by it y of mg tablet 00:00: [place] the Medical morning Branch and 0.5 tablets in the evening. Patient takes half tablet twice daily losartan 50 2022-0 Yes [id number] 50mg Take 1 Univers mg tablet 2-20 tablet by ity o f 00:00: mouth in [place] 00 the Medical morning. Branch metoprolol 2022-0 Yes [id number] 12.5mg Take 0.5 Univers tartrate 25 2-20 tablets by it y of mg tablet 00:00: [facility] morning Branch and 0.5 tablets in the evening. Patient takes half tablet twice daily losartan 50 3-0 Yes [id number] 50mg Take 1 Univers mg tablet 2-20 tablet by ity o f 00:00: mouth in [place] the morning. Branch metoprolol 2023-0 Yes [id number] 12.5mg Take 0.5 Univers tartrate 25 2-20 tablets by it y of mg tablet 00:00: [place] the Medical morning Branch and 0.5 tablets in the evening. Patient takes half tablet twice daily losartan 50 3-0 Yes [id number] 50mg Take 1 Univers mg tablet 2-20 tablet by ity o f 00:00: mouth in [place] the morning. Branch metoprolol 2023-0 Yes [id number] 12.5mg Take 0.5 Univers tartrate 25 2-20 tablets by it y of mg tablet 00:00: mouth in [facility] the morning Branch and 0.5 tablets in the evening. Patient takes half tablet twice daily losartan 50 3-0 Yes [id number] 50mg Take 1 Univers mg tablet 2-20 tablet by ity o f 00:00: mouth in [place] the morning. Branch metoprolol 3-0 Yes [id number] 12.5mg Take 0.5 Univers tartrate 25 2-20 tablets by it y of mg tablet 00:00: mouth in [facility] the morning Branch and 0.5 tablets in the evening. Patient takes half tablet twice daily losartan 50 3-0 Yes [id number] 50mg Take 1 Univers mg tablet 2-20 tablet by ity o f 00:00: mouth in [place] the morning. Branch metoprolol 2023-0 Yes [id number] 12.5mg Take 0.5 Univers tartrate 25 2-20 tablets by it y of mg tablet 00:00: mouth in [facility] the Medical morning Branch and 0.5 tablets in the evening. Patient takes half tablet twice daily losartan 50 3-0 Yes [id number] 50mg Take 1 Univers mg tablet 2-20 tablet by ity o f 00:00: mouth in [place] the morning. Branch metoprolol 2023-0 Yes [id number] 12.5mg Take 0.5 Univers tartrate 25 2-20 tablets by it y of mg tablet 00:00: mouth in [facility] the Medical morning Branch and 0.5 tablets in the evening. Patient takes half tablet twice daily losartan 50 2023-0 Yes [id number] 50mg Take 1 Univers mg tablet 2-20 tablet by ity o f 00:00: mouth in [place] the morning. Branch metoprolol 2023-0 Yes [id number] 12.5mg Take 0.5 Univers tartrate 25 2-20 tablets by it y of mg tablet 00:00: mouth in the Medical morning Branch and 0.5 tablets in the evening. Patient takes half tablet twice daily losartan 50 2023-0 Yes [id number] 50mg Take 1 Univers mg tablet 2-20 tablet by ity o f 00:00: mouth in [place] the Medical morning. Branch metoprolol 2023-0 Yes [id number] 12.5mg Take 0.5 Univers tartrate 25 2-20 tablets by it y of mg tablet 00:00: mouth in the Medical morning Branch and 0.5 tablets in the evening. Patient takes half tablet twice daily losartan 50 2023-0 Yes [id number] 50mg Take 1 Univers mg tablet 2-20 tablet by ity o f 00:00: mouth in [place] the morning. Branch metoprolol 2023-0 Yes [id number] 12.5mg Take 0.5 Univers tartrate 25 2-20 tablets by it y of mg tablet 00:00: mouth in [facility] [place] the morning Branch and 0.5 tablets in the evening. Patient takes half tablet twice daily losartan 50 2023-0 Yes [id number] 50mg Take 1 [facility] mg tablet 2-20 tablet by ity o f 00:00: mouth in [place] the morning. Branch metoprolol 2023-0 Yes [id number] 12.5mg Take 0.5 [facility] tartrate 25 2-20 tablets by it y of mg tablet 00:00: mouth in [place] the Medical morning Branch and 0.5 tablets in the evening. Patient takes half tablet twice daily losartan 50 2023-0 Yes [id number] 50mg Take 1 [facility] mg tablet 2-20 tablet by ity o f 00:00: mouth in [place] the Medical morning. Branch metoprolol 2023-0 Yes [id number] 12.5mg Take 0.5 [facility] tartrate 25 2-20 tablets by it y of mg tablet 00:00: mouth in [place] the Medical morning Branch and 0.5 tablets in the evening. Patient takes half tablet twice daily losartan 50 2023-0 Yes [id number] 50mg Take 1 [facility] mg tablet 2-20 tablet by ity o f 00:00: mouth in [place] the morning. Branch metoprolol 2023-0 Yes [id number] 12.5mg Take 0.5 [facility] tartrate 25 2-20 tablets by it y of mg tablet 00:00: mouth in the morning Branch and 0.5 tablets in the evening. Patient takes half tablet twice daily losartan 50 3-0 Yes [id number] 50mg Take 1 [facility] mg tablet 2-20 tablet by ity o f 00:00: mouth in [place] the morning. Branch metoprolol 2023-0 Yes [id number] 12.5mg Take 0.5 [facility] tartrate 25 2-20 tablets by it y of mg tablet 00:00: mouth in the Medical morning Branch and 0.5 tablets in the evening. Patient takes half tablet twice daily losartan 50 3-0 Yes [id number] 50mg Take 1 [facility] mg tablet 2-20 tablet by ity o f 00:00: mouth in [place] the morning. Branch metoprolol 2023-0 Yes [id number] 12.5mg Take 0.5 [facility] tartrate 25 2-20 tablets by it y of mg tablet 00:00: mouth in the morning Branch and 0.5 tablets in the evening. Patient takes half tablet twice daily losartan 50 3-0 Yes [id number] 50mg Take 1 [facility] mg tablet 2-20 tablet by ity o f 00:00: mouth in [place] the morning. Branch metoprolol 2023-0 Yes [id number] 12.5mg Take 0.5 [facility] tartrate 25 2-20 tablets by it y of mg tablet 00:00: mouth in [facility] the Medical morning Branch and 0.5 tablets in the evening. Patient takes half tablet twice daily losartan 50 2023-0 Yes [id number] 50mg Take 1 [facility] mg tablet 2-20 tablet by ity o f 00:00: mouth in [place] the Medical morning. Branch metoprolol 2023-0 Yes [id number] 12.5mg Take 0.5 [facility] tartrate 25 2-20 tablets by it y of mg tablet 00:00: mouth in [facility] 00 the [facility] morning Branch and 0.5 tablets in the evening. Patient takes half tablet twice daily losartan 50 2022-0 Yes [id number] 50mg Take 1 [facility] mg tablet 2-20 tablet by ity o f 00:00: mouth in [place] [address] the Medical morning. Branch metoprolol 2022-0 Yes [id number] 12.5mg Take 0.5 [facility] tartrate 25 2-20 tablets by it y of mg tablet 00:00: mouth in [facility] 00 the [facility] morning Branch and 0.5 tablets in the evening. Patient takes half tablet twice daily losartan 50 2022-0 Yes [id number] 50mg Take 1 [facility] mg tablet 2-20 tablet by ity o f 00:00: mouth in [place] [address] the Medical morning. Branch metoprolol 2022-0 Yes [id number] 12.5mg Take 0.5 [facility] tartrate 25 2-20 tablets by it y of mg tablet 00:00: mouth in [place] [address] the [facility] morning [place] and 0.5 tablets in the evening. Patient takes half tablet twice daily losartan 50 2022-0 Yes [id number] 50mg Take 1 [facility] mg tablet 2-20 tablet by ity o f 00:00: mouth in [place] [address] the morning. Branch MONTELUKAST 2022-0 Yes [id number] 10mg TAKE 1 [facility] 10 mg 2-14 TABLET BY ity of tablet 00:00: MOUTH IN [place] 00 THE [facility] MORNING Branch MONTELUKAST 2022-0 Yes [id number] 10mg TAKE 1 [facility] 10 mg 2-14 TABLET BY ity of tablet 00:00: MOUTH IN [place] 00 THE [facility] MORNING Branch MONTELUKAST 2022-0 Yes [id number] 10mg TAKE 1 [facility] 10 mg 2-14 TABLET BY ity of tablet 00:00: MOUTH IN [place] 00 THE [facility] MORNING Branch MONTELUKAST 2022-0 Yes [id number] 10mg TAKE 1 [facility] 10 mg 2-14 TABLET BY ity of tablet 00:00: MOUTH IN [place] 00 THE [facility] MORNING Branch MONTELUKAST 2022-0 Yes [id number] 10mg TAKE 1 [facility] 10 mg 2-14 TABLET BY ity of tablet 00:00: MOUTH IN [place] 00 THE [facility] MORNING Branch MONTELUKAST 2022-0 Yes [id number] 10mg TAKE 1 [facility] 10 mg 2-14 TABLET BY ity of tablet 00:00: MOUTH IN [place] 00 THE Medical MORNING Branch MONTELUKAST 0 Yes [id number] 10mg TAKE 1 [facility] 10 mg 2-14 TABLET BY ity of tablet 00:00: MOUTH IN [place] 00 THE Medical MORNING Branch MONTELUKAST 0 Yes [id number] 10mg TAKE 1 [facility] 10 mg 2-14 TABLET BY ity of tablet 00:00: MOUTH IN [place] 00 THE Medical MORNING Branch MONTELUKAST 0 Yes [id number] 10mg TAKE 1 [facility] 10 mg 2-14 TABLET BY ity of tablet 00:00: MOUTH IN [place] 00 THE Medical MORNING Branch MONTELUKAST Yes [id number] 10mg TAKE 1 [facility] 10 mg 2-14 TABLET BY ity of tablet 00:00: MOUTH IN [place] 00 THE [facility] MORNING Branch MONTELUKAST Yes [id number] 10mg TAKE 1 [facility] 10 mg 2-14 TABLET BY ity of tablet 00:00: MOUTH IN [place] 00 THE [facility] MORNING Branch MONTELUKAST 0 Yes [id number] 10mg TAKE 1 [facility] 10 mg 2-14 TABLET BY ity of tablet 00:00: MOUTH IN [place] 00 THE Medical MORNING Branch MONTELUKAST 0 Yes [id number] 10mg TAKE 1 [facility] 10 mg 2-14 TABLET BY ity of tablet 00:00: MOUTH IN [place] 00 THE [facility] MORNING Branch MONTELUKAST 0 Yes [id number] 10mg TAKE 1 [facility] 10 mg 2-14 TABLET BY ity of tablet 00:00: MOUTH IN [place] 00 THE [facility] MORNING Branch MONTELUKAST 2022-0 Yes [id number] 10mg TAKE 1 [facility] 10 mg 2-14 TABLET BY ity of tablet 00:00: MOUTH IN [place] 00 THE [facility] MORNING [place] MONTELUKAST 0 Yes [id number] 10mg TAKE 1 [facility] 10 mg 2-14 TABLET BY ity of tablet 00:00: MOUTH IN [place] 00 THE [facility] MORNING Branch MONTELUKAST 0 Yes [id number] 10mg TAKE 1 [facility] 10 mg 2-14 TABLET BY ity of tablet 00:00: MOUTH IN [place] 00 THE [facility] MORNING Branch MONTELUKAST 2022-0 Yes [id number] 10mg TAKE 1 [facility] 10 mg 2-14 TABLET BY ity of tablet 00:00: MOUTH IN [place] 00 THE [facility] [id number] 10mg TAKE 1 [facility] 10 mg 2-14 TABLET BY ity of tablet 00:00: [facility] [place] [facility] [id number] 10mg TAKE 1 [facility] 10 mg 2-14 - TABLET BY ity of tablet 00:00: 00:00 MOUTH IN [place] 00 :00 THE [facility] Branch metFORMIN 2021- Yes [id number] 1000mg Take 1 [facility] 1,000 mg 2-12 tablet by ity of tablet 00:00: mouth in [place] 00 the [facility] morning [place] and 1 tablet in the evening. Take with meals. Omeprazole 2021- Yes [id number] 20mg Take 1 [facility] 20 mg 2-12 tablet by ity of tablet 00:00: mouth in [place] the morning. Branch metFORMIN 2021-05 Yes [id number] 1000mg Take 1 [facility] 1,000 mg 2-12 tablet by ity of tablet 00:00: mouth in [place] the [facility] morning [place] and 1 tablet in the evening. Take with meals. Omeprazole 2021- Yes [id number] 20mg Take 1 [facility] 20 mg 2-12 tablet by ity of tablet 00:00: mouth in [place] the morning. Branch metFORMIN 2021- Yes [id number] 1000mg Take 1 [facility] 1,000 mg 2-12 tablet by ity of tablet 00:00: mouth in [place] the [facility] morning [place] and 1 tablet in the evening. Take with meals. Omeprazole 2021- Yes [id number] 20mg Take 1 [facility] 20 mg 2-12 tablet by ity of tablet 00:00: mouth in [place] the morning. Branch metFORMIN 2021-05 Yes [id number] 1000mg Take 1 [facility] 1,000 mg 2-12 tablet by ity of tablet 00:00: mouth in [place] the [facility] morning [place] and 1 tablet in the evening. Take with meals. Omeprazole 2021- Yes [id number] 20mg Take 1 [facility] 20 mg 2-12 tablet by ity of tablet 00:00: mouth in [place] [address] the Medical morning. Branch metFORMIN 2021- Yes [id number] 1000mg Take 1 [facility] 1,000 mg 2-12 tablet by ity of tablet 00:00: mouth in [place] [address] the [facility] and 1 tablet in the evening. Take with meals. Omeprazole 2021- Yes [id number] 20mg Take 1 [facility] 20 mg 2-12 tablet by ity of tablet 00:00: mouth in [place] the morning. Branch metFORMIN 2021- Yes [id number] 1000mg Take 1 [facility] 1,000 mg 2-12 tablet by ity of tablet 00:00: mouth in [place] the morning Branch and 1 tablet in the evening. Take with meals. Omeprazole 2021- Yes [id number] 20mg Take 1 [facility] 20 mg 2-12 tablet by ity of tablet 00:00: mouth in [place] the morning. Branch metFORMIN 2021- Yes [id number] 1000mg Take 1 [facility] 1,000 mg 2-12 tablet by ity of tablet 00:00: mouth in [place] the Branch and 1 tablet in the evening. Take with meals. Omeprazole 2021- Yes [id number] 20mg Take 1 [facility] 20 mg 2-12 tablet by ity of tablet 00:00: mouth in [place] the . Branch metFORMIN 2021- Yes [id number] 1000mg Take 1 [facility] 1,000 mg 2-12 tablet by ity of tablet 00:00: mouth in [place] the Branch and 1 tablet in the evening. Take with meals. Omeprazole 2021- Yes [id number] 20mg Take 1 [facility] 20 mg 2-12 tablet by ity of tablet 00:00: mouth in [place] the . Branch metFORMIN 2021- Yes [id number] 1000mg Take 1 [facility] 1,000 mg 2-12 tablet by ity of tablet 00:00: mouth in [place] the Branch and 1 tablet in the evening. Take with meals. Omeprazole 2021-1 Yes [id number] 20mg Take 1 [facility] 20 mg 2-12 tablet by ity of tablet 00:00: mouth in [place] the morning. Branch metFORMIN 2021- Yes [id number] 1000mg Take 1 [facility] 1,000 mg 2-12 tablet by ity of tablet 00:00: mouth in [place] [address] the Branch and 1 tablet in the evening. Take with meals. Omeprazole 2021- Yes [id number] 20mg Take 1 [facility] 20 mg 2-12 tablet by ity of tablet 00:00: mouth in [place] the morning. Branch metFORMIN 2021-1 Yes [id number] 1000mg Take 1 [facility] 1,000 mg 2-12 tablet by ity of tablet 00:00: mouth in [place] the morning Branch and 1 tablet in the evening. Take with meals. Omeprazole 2021-1 Yes [id number] 20mg Take 1 [facility] 20 mg 2-12 tablet by ity of tablet 00:00: mouth in [place] the morning. Branch metFORMIN 2021-1 Yes [id number] 1000mg Take 1 [facility] 1,000 mg 2-12 tablet by ity of tablet 00:00: mouth in [place] [address] the morning Branch and 1 tablet in the evening. Take with meals. Omeprazole 2021-1 Yes [id number] 20mg Take 1 [facility] 20 mg 2-12 tablet by ity of tablet 00:00: mouth in [place] the morning. Branch metFORMIN 2021-1 Yes [id number] 1000mg Take 1 [facility] 1,000 mg 2-12 tablet by ity of tablet 00:00: mouth in [place] [address] the morning Branch and 1 tablet in the evening. Take with meals. Omeprazole 2021-1 Yes [id number] 20mg Take 1 [facility] 20 mg 2-12 tablet by ity of tablet 00:00: mouth in [place] the morning. Branch metFORMIN 2021-1 Yes [id number] 1000mg Take 1 [facility] 1,000 mg 2-12 tablet by ity of tablet 00:00: mouth in [place] [address] the morning Branch and 1 tablet in the evening. Take with meals. Omeprazole 2021-1 Yes [id number] 20mg Take 1 [facility] 20 mg 2-12 tablet by ity of tablet 00:00: mouth in [place] the morning. Branch metFORMIN 2021-1 Yes [id number] 1000mg Take 1 [facility] 1,000 mg 2-12 tablet by ity of tablet 00:00: mouth in [place] [address] the morning Branch and 1 tablet in the evening. Take with meals. Omeprazole 2021-1 Yes [id number] 20mg Take 1 [facility] 20 mg 2-12 tablet by ity of tablet 00:00: mouth in [place] the morning. Branch Omeprazole 2021-1 Yes [id number] 20mg Take 1 [facility] 20 mg 2-12 tablet by ity of tablet 00:00: mouth in [place] [address] the morning. Branch Omeprazole 2021-1 Yes [id number] 20mg Take 1 [facility] 20 mg 2-12 tablet by ity of tablet 00:00: mouth in [place] 00 the Medical morning. Branch Omeprazole 2021-05 Yes [id number] 20mg Take 1 [facility] 20 mg 2-12 tablet by ity of tablet 00:00: mouth in [place] the Medical morning. Branch Omeprazole 2021-05 Yes [id number] 20mg Take 1 [facility] 20 mg 2-12 tablet by ity of tablet 00:00: mouth in [place] the Medical morning. Branch Omeprazole 2021-05 Yes [id number] 20mg Take 1 [facility] 20 mg 2-12 tablet by ity of tablet 00:00: mouth in [place] 00 the Medical morning. Branch Omeprazole 2021-05 Yes [id number] 20mg Take 1 [facility] 20 mg 2-12 tablet by ity of tablet 00:00: mouth in [place] the Medical morning. Branch Omeprazole 2021-05 Yes [id number] 20mg Take 1 [facility] 20 mg 2-12 tablet by ity of tablet 00:00: mouth in [place] the Medical morning. Branch Omeprazole 2021-05 Yes [id number] 20mg Take 1 [facility] 20 mg 2-12 tablet by ity of tablet 00:00: mouth in [place] the Medical morning. Branch Omeprazole 2021-05 Yes [id number] 20mg Take 1 [facility] 20 mg 2-12 tablet by ity of tablet 00:00: mouth in [place] the Medical morning. Branch Omeprazole 2021-05 Yes [id number] 20mg Take 1 [facility] 20 mg 2-12 tablet by ity of tablet 00:00: mouth in [place] the Medical morning. Branch Omeprazole 2021-05 Yes [id number] 20mg Take 1 [facility] 20 mg 2-12 tablet by ity of tablet 00:00: mouth in [place] the Medical morning. Branch Omeprazole 2021-05 Yes [id number] 20mg Take 1 [facility] 20 mg 2-12 tablet by ity of tablet 00:00: mouth in [place] 00 the Medical morning. Branch metFORMIN 2021-05- No [id number] 1000mg Take 1 [facility] 1,000 mg 2-12 - tablet by ity o f tablet 00:00: 00:00 mouth in [place] 00 :00 the Medical morning Branch and 1 tablet in the evening. Take with meals. apixaban 2021-05 Yes 1358 5mg Take 1 [facility] (ELIQUIS) 5 1-25 tablet by ity of mg tablet 00:00: mouth [place] 00 the Medical morning Branch and 1 tablet in the evening. Indication s: atrial fibrillati on apixaban 2021-05 Yes 1358 5mg Take 1 [facility] (ELIQUIS) 5 1-25 tablet by ity of mg tablet 00:00: mouth in [place] 00 the Medical morning Branch and 1 tablet in the evening. Indication s: atrial fibrillati on apixaban 2021-05 Yes 1358 5mg Take 1 [facility] (ELIQUIS) 5 1-25 tablet by ity of mg tablet 00:00: mouth [place] 00 the Medical morning Branch and 1 tablet in the evening. Indication s: atrial fibrillati on apixaban 2021-05 Yes 1358 5mg Take 1 [facility] (ELIQUIS) 5 1-25 tablet by ity of mg tablet 00:00: mouth [place] 00 the Medical morning Branch and 1 tablet in the evening. Indication s: atrial fibrillati on apixaban 2021-05 Yes 1358 5mg Take 1 [facility] (ELIQUIS) 5 1-25 tablet by ity of mg tablet 00:00: mouth [place] 00 the Medical morning Branch and 1 tablet in the evening. Indication s: atrial fibrillati on apixaban 2021-05 Yes 1358 5mg Take 1 [facility] (ELIQUIS) 5 1-25 tablet by ity of mg tablet 00:00: mouth in [place] 00 the Medical morning Branch and 1 tablet in the evening. Indication s: atrial fibrillati on apixaban 2021-05 Yes 1358 5mg Take 1 [facility] (ELIQUIS) 5 1-25 tablet by ity of mg tablet 00:00: mouth [place] 00 the Medical morning Branch and 1 tablet in the evening. Indication s: atrial fibrillati on apixaban 2021-05 Yes 1358 5mg Take 1 [facility] (ELIQUIS) 5 1-25 tablet by ity of mg tablet 00:00: mouth [place] 00 the Medical morning Branch and 1 tablet in the evening. Indication s: atrial fibrillati on apixaban 2021-05 Yes 1358 5mg Take 1 [facility] (ELIQUIS) 5 1-25 tablet by ity of mg tablet 00:00: mouth in [place] 00 the Medical morning Branch and 1 tablet in the evening. Indication s: atrial fibrillati on apixaban 2021-05 Yes 1358 5mg Take 1 [facility] (ELIQUIS) 5 1-25 tablet by ity of mg tablet 00:00: mouth in [place] 00 the Medical morning Branch and 1 tablet in the evening. Indication s: atrial fibrillati on apixaban 2021-05 Yes 1358 5mg Take 1 [facility] (ELIQUIS) 5 1-25 tablet by ity of mg tablet 00:00: mouth in [place] 00 the Medical morning Branch and 1 tablet in the evening. Indication s: atrial fibrillati on apixaban 2021-05 Yes 1358 5mg Take 1 [facility] (ELIQUIS) 5 1-25 tablet by ity of mg tablet 00:00: mouth in [place] 00 the Medical morning Branch and 1 tablet in the evening. Indication s: atrial fibrillati on apixaban 2021-05 Yes 1358 5mg Take 1 [facility] (ELIQUIS) 5 1-25 tablet by ity of mg tablet 00:00: mouth [place] 00 the Medical morning Branch and 1 tablet in the evening. Indication s: atrial fibrillati on apixaban 2021-05 Yes 1358 5mg Take 1 [facility] (ELIQUIS) 5 1-25 tablet by ity of mg tablet 00:00: mouth in [place] 00 the Medical morning Branch and 1 tablet in the evening. Indication s: atrial fibrillati on apixaban 2021-05 Yes 1358 5mg Take 1 [facility] (ELIQUIS) 5 1-25 tablet by ity of mg tablet 00:00: mouth in [place] 00 the Medical morning Branch and 1 tablet in the evening. Indication s: atrial fibrillati on apixaban 2021-05 Yes 1358 5mg Take 1 [facility] (ELIQUIS) 5 1-25 tablet by ity of mg tablet 00:00: mouth in [place] 00 the Medical morning Branch and 1 tablet in the evening. Indication s: atrial fibrillati on apixaban 2021-05 Yes 1358 5mg Take 1 [facility] (ELIQUIS) 5 1-25 tablet by ity of mg tablet 00:00: mouth in [place] 00 the Medical morning Branch and 1 tablet in the evening. Indication s: atrial fibrillati on apixaban 2021-05 Yes 1358 5mg Take 1 [facility] (ELIQUIS) 5 1-25 tablet by ity of mg tablet 00:00: mouth in [place] 00 the Medical morning Branch and 1 tablet in the evening. Indication s: atrial fibrillati on apixaban 2021-05 Yes 1358 5mg Take 1 [facility] (ELIQUIS) 5 1-25 tablet by ity of mg tablet 00:00: mouth in [place] 00 the Medical morning Branch and 1 tablet in the evening. Indication s: atrial fibrillati on apixaban 2021-05 Yes 1358 5mg Take 1 [facility] (ELIQUIS) 5 1-25 tablet by ity of mg tablet 00:00: mouth in [place] 00 the Medical morning Branch and 1 tablet in the evening. Indication s: atrial fibrillati on apixaban 2021-05 Yes 1358 5mg Take 1 [facility] (ELIQUIS) 5 1-25 tablet by ity of mg tablet 00:00: mouth in [place] 00 the Medical morning Branch and 1 tablet in the evening. Indication s: atrial fibrillati on apixaban 2021-05 Yes 1358 5mg Take 1 [facility] (ELIQUIS) 5 1-25 tablet by ity of mg tablet 00:00: mouth in [place] 00 the Medical morning Branch and 1 tablet in the evening. Indication s: atrial fibrillati on apixaban 2021-05 Yes 1358 5mg Take 1 [facility] (ELIQUIS) 5 1-25 tablet by ity of mg tablet 00:00: mouth in [place] 00 the Medical morning Branch and 1 tablet in the evening. Indication s: atrial fibrillati on apixaban 2021-05 Yes 1358 5mg Take 1 [facility] (ELIQUIS) 5 1-25 tablet by ity of mg tablet 00:00: mouth in [place] 00 the Medical morning Branch and 1 tablet in the evening. Indication s: atrial fibrillati on apixaban 2021-05 Yes 1358 5mg Take 1 [facility] (ELIQUIS) 5 1-25 tablet by ity of mg tablet 00:00: mouth in [place] 00 the Medical morning Branch and 1 tablet in the evening. Indication s: atrial fibrillati on apixaban 2021-05 Yes 1358 5mg Take 1 [facility] (ELIQUIS) 5 1-25 tablet by ity of mg tablet 00:00: mouth in [place] 00 the Medical morning Branch and 1 tablet in the evening. Indication s: atrial fibrillati on apixaban 2021-05 Yes 1358 5mg Take 1 [facility] (ELIQUIS) 5 1-25 tablet by ity of mg tablet 00:00: mouth in [place] 00 the Medical morning Branch and 1 tablet in the evening. Indication s: atrial fibrillati on apixaban 2021-05 Yes 1358 5mg Take 1 [facility] (ELIQUIS) 5 1-25 tablet by ity of mg tablet 00:00: mouth in [place] 00 the Medical morning Branch and 1 tablet in the evening. Indication s: atrial fibrillati on apixaban 2021-05 Yes 1358 5mg Take 1 [facility] (ELIQUIS) 5 1-25 tablet by ity of mg tablet 00:00: mouth in [place] 00 the Medical morning Branch and 1 tablet in the evening. Indication s: atrial fibrillati on apixaban 2021-05 Yes 1358 5mg Take 1 [facility] (ELIQUIS) 5 1-25 tablet by ity of mg tablet 00:00: mouth in [place] 00 the Medical morning Branch and 1 tablet in the evening. Indication s: atrial fibrillati on apixaban 2021-05 Yes 1358 5mg Take 1 [facility] (ELIQUIS) 5 1-25 tablet by ity of mg tablet 00:00: mouth in [place] 00 the Medical morning Branch and 1 tablet in the evening. Indication s: atrial fibrillati on losartan 25 2021-05- No 25mg Take 25 mg [facility] mg tablet 06-03 by mouth ity o f 14:08: 00:00 daily. [place] 17 : [facility] losartan 25 2021-05- No 25mg Take 25 mg Univers mg tablet -04-03 by mouth ity o f 14:08: 00:00 daily. [place] 17 :00 [facility] losartan 25 2021-05- No 25mg Take 25 mg Univers mg tablet -04-03 by mouth ity o f 14:08: 00:00 daily. [place] 17 : [facility] losartan 25 2021-05- No 25mg Take 25 mg Univers mg tablet 06-03 by mouth ity o f 14:08: 00:00 daily. [place] [id number] :00 Medical Branch metoprolol 2021-05 Yes 25mg Take 25 mg U nivers tartrate 25 1-22 by mouth ity of mg tablet 13:45: in the [place] [address] morning Medical and 25 mg Branch in the evening. Patient takes half tablet twice daily metoprolol 2021- Yes 25mg Take 25 mg U nivers tartrate 25 1-22 by mouth ity of mg tablet 13:45: in the [place] [address] morning Medical and 25 mg Branch in the evening. Patient takes half tablet twice daily metoprolol 2021- Yes 25mg Take 25 mg U nivers tartrate 25 1-22 by mouth ity of mg tablet 13:45: in the [place] [address] morning Medical and 25 mg Branch in the evening. Patient takes half tablet twice daily metoprolol 2021- Yes 25mg Take 25 mg U nivers tartrate 25 1-22 by mouth ity of mg tablet 13:45: in the [place] [address] morning Medical and 25 mg Branch in the evening. Patient takes half tablet twice daily metoprolol 2021-05 Yes 25mg Take 25 mg U nivers tartrate 25 1-22 by mouth ity of mg tablet 13:45: in the [place] [address] morning Medical and 25 mg Branch in the evening. Patient takes half tablet twice daily metoprolol 2021-05 Yes 25mg Take 25 mg U nivers tartrate 25 1-22 by mouth ity of mg tablet 13:45: in the [place] [address] morning Medical and 25 mg Branch in the evening. Patient takes half tablet twice daily metoprolol 2021- Yes 25mg Take 25 mg U nivers tartrate 25 1-22 by mouth ity of mg tablet 13:45: in the [place] [address] morning Medical and 25 mg Branch in the evening. Patient takes half tablet twice daily metoprolol 2021- Yes 25mg Take 25 mg U nivers tartrate 25 1-22 by mouth ity of mg tablet 13:45: in the [place] [address] morning Medical and 25 mg Branch in the evening. Patient takes half tablet twice daily metoprolol 2021-1 Yes 25mg Take 25 mg U nivers tartrate 25 1-22 by mouth ity of mg tablet 13:45: in the [place] [address] morning Medical and 25 mg Branch in the evening. Patient takes half tablet twice daily metoprolol 2021-1 Yes 25mg Take 25 mg U nivers tartrate 25 1-22 by mouth ity of mg tablet 13:45: in the [place] [address] morning Medical and 25 mg Branch in the evening. Patient takes half tablet twice daily metoprolol 2021-05 Yes 25mg Take 25 mg U nivers tartrate 25 1-22 by mouth ity of mg tablet 13:45: in the [place] [address] morning Medical and 25 mg Branch in the evening. Patient takes half tablet twice daily metoprolol 2021-05 Yes 25mg Take 25 mg U nivers tartrate 25 1-22 by mouth ity of mg tablet 13:45: in the [place] [address] morning Medical and 25 mg Branch in the evening. Patient takes half tablet twice daily metoprolol 2021-05 Yes 25mg Take 25 mg U nivers tartrate 25 1-22 by mouth ity of mg tablet 13:45: in the [place] [address] morning Medical and 25 mg Branch in the evening. Patient takes half tablet twice daily metoprolol 2021-05 Yes 25mg Take 25 mg U nivers tartrate 25 1-22 by mouth ity of mg tablet 13:45: in the [place] [address] morning Medical and 25 mg Branch in the evening. Patient takes half tablet twice daily metoprolol 2021-05 Yes 25mg Take 25 mg U nivers tartrate 25 1-22 by mouth ity of mg tablet 13:45: in the [place] [address] morning Medical and 25 mg Branch in the evening. Patient takes half tablet twice daily metoprolol 2021-05 Yes 25mg Take 25 mg U nivers tartrate 25 1-22 by mouth ity of mg tablet 13:45: in the [place] [address] morning Medical and 25 mg Branch in the evening. Patient takes half tablet twice daily metoprolol 2021-05 Yes 25mg Take 25 mg [facility] tartrate 25 1-22 by mouth ity of mg tablet 13:45: in the [place] [address] morning Medical and 25 mg Branch in the evening. Patient takes half tablet twice daily albuterol 2021-05 Yes [id number] 2{puff} Inhale 2 [facility] (PROAIR 1-22 Puffs ity of HFA) 90 00:00: every 6 [place] mcg/actuati 00 (six) Medical on inhaler hours as Branc h needed for Wheezing, Shortness of Breath or Chest tightness. losartan 2021-05 Yes [id number] 100mg Take 1 [facility] [place] 100 mg 1-22 tablet by ity of tablet 00:00: mouth in [place] 00 the Medical morning. Branch losartan 2021-05 Yes [id number] 100mg Take 1 [facility] [place] 100 mg 1-22 tablet by ity of tablet 00:00: mouth in [place] 00 the Medical morning. Branch albuterol 2021-05 Yes [id number] 2{puff} Inhale 2 [facility] (PROAIR 1-22 Puffs ity of HFA) 90 00:00: every 6 [place] mcg/actuati 00 (six) Medical on inhaler hours as Branc h needed for Wheezing, Shortness of Breath or Chest tightness. albuterol 2021-05 Yes [id number] 2{puff} Inhale 2 [facility] (PROAIR 1-22 Puffs ity of HFA) 90 00:00: every 6 [place] mcg/actuati 00 (six) Medical on inhaler hours as Branc h needed for Wheezing, Shortness of Breath or Chest tightness. losartan 2021-05 Yes [id number] 100mg Take 1 [facility] [place] 100 mg 1-22 tablet by ity of tablet 00:00: mouth in [place] 00 the Medical morning. Branch albuterol 2021-05 Yes [id number] 2{puff} Inhale 2 [facility] (PROAIR 1-22 Puffs ity of HFA) 90 00:00: every 6 [place] mcg/actuati 00 (six) Medical on inhaler hours as Branc h needed for Wheezing, Shortness of Breath or Chest tightness. losartan 2021-05 Yes [id number] 100mg Take 1 [facility] [place] 100 mg 1-22 tablet by ity of tablet 00:00: mouth in [place] 00 the Medical morning. Branch albuterol 2021-05 Yes [id number] 2{puff} Inhale 2 [facility] (PROAIR 1-22 Puffs ity of HFA) 90 00:00: every 6 [place] mcg/actuati 00 (six) Medical on inhaler hours as Branc h needed for Wheezing, Shortness of Breath or Chest tightness. losartan 2021-05 Yes [id number] 100mg Take 1 [facility] [place] 100 mg 1-22 tablet by ity of tablet 00:00: mouth in [place] 00 the Medical morning. Branch albuterol 2021-05 Yes [id number] 2{puff} Inhale 2 [facility] (PROAIR 1-22 Puffs ity of HFA) 90 00:00: every 6 [place] mcg/actuati 00 (six) Medical on inhaler hours as Branc h needed for Wheezing, Shortness of Breath or Chest tightness. losartan 2021-05 Yes [id number] 100mg Take 1 [facility] [place] 100 mg 1-22 tablet by ity of tablet 00:00: mouth in [place] 00 the Medical morning. Branch albuterol 2021-05 Yes [id number] 2{puff} Inhale 2 [facility] (PROAIR 1-22 Puffs ity of HFA) 90 00:00: every 6 [place] mcg/actuati 00 (six) Medical on inhaler hours as Branc h needed for Wheezing, Shortness of Breath or Chest tightness. losartan 2021-05 Yes [id number] 100mg Take 1 [facility] [place] 100 mg 1-22 tablet by ity of tablet 00:00: mouth in [place] 00 the Medical morning. Branch albuterol 2021-05 Yes [id number] 2{puff} Inhale 2 [facility] (PROAIR 1-22 Puffs ity of HFA) 90 00:00: every 6 [place] mcg/actuati 00 (six) Medical on inhaler hours as Branc h needed for Wheezing, Shortness of Breath or Chest tightness. losartan 2021-05 Yes [id number] 100mg Take 1 [facility] [place] 100 mg 1-22 tablet by ity of tablet 00:00: mouth in [place] 00 the Medical morning. Branch albuterol 2021-05 Yes [id number] 2{puff} Inhale 2 [facility] (PROAIR 1-22 Puffs ity of HFA) 90 00:00: every 6 [place] mcg/actuati 00 (six) Medical on inhaler hours as Branc h needed for Wheezing, Shortness of Breath or Chest tightness. losartan 2021-05 Yes [id number] 100mg Take 1 [facility] [place] 100 mg 1-22 tablet by ity of tablet 00:00: mouth in [place] 00 the Medical morning. Branch albuterol 2021-05 Yes [id number] 2{puff} Inhale 2 [facility] (PROAIR 1-22 Puffs ity of HFA) 90 00:00: every 6 [place] mcg/actuati 00 (six) Medical on inhaler hours as Branc h needed for Wheezing, Shortness of Breath or Chest tightness. losartan 2021-05 Yes [id number] 100mg Take 1 [facility] [place] 100 mg 1-22 tablet by ity of tablet 00:00: mouth in [place] 00 the Medical morning. Branch losartan 2021-05 Yes [id number] 100mg Take 1 [facility] [place] 100 mg 1-22 tablet by ity of tablet 00:00: mouth in [place] 00 the Medical morning. Branch albuterol 2021-05 Yes [id number] 2{puff} Inhale 2 [facility] (PROAIR 1-22 Puffs ity of HFA) 90 00:00: every 6 [place] mcg/actuati 00 (six) Medical on inhaler hours as Branc h needed for Wheezing, Shortness of Breath or Chest tightness. losartan 2021-05 Yes [id number] 100mg Take 1 [facility] [place] 100 mg 1-22 tablet by ity of tablet 00:00: mouth in [place] 00 the Medical morning. Branch albuterol 2021-05 Yes [id number] 2{puff} Inhale 2 [facility] (PROAIR 1-22 Puffs ity of HFA) 90 00:00: every 6 [place] mcg/actuati 00 (six) Medical on inhaler hours as Branc h needed for Wheezing, Shortness of Breath or Chest tightness. losartan 2021-05 Yes [id number] 100mg Take 1 [facility] [place] 100 mg 1-22 tablet by ity of tablet 00:00: mouth in [place] 00 the Medical morning. Branch albuterol 2021-05 Yes [id number] 2{puff} Inhale 2 [facility] (PROAIR 1-22 Puffs ity of HFA) 90 00:00: every 6 [place] mcg/actuati 00 (six) Medical on inhaler hours as Branc h needed for Wheezing, Shortness of Breath or Chest tightness. losartan 2021-05 Yes [id number] 100mg Take 1 [facility] [place] 100 mg 1-22 tablet by ity of tablet 00:00: mouth in [place] 00 the Medical morning. Branch albuterol 2021-05 Yes [id number] 2{puff} Inhale 2 [facility] (PROAIR 1-22 Puffs ity of HFA) 90 00:00: every 6 [place] mcg/actuati 00 (six) Medical on inhaler hours as Branc h needed for Wheezing, Shortness of Breath or Chest tightness. losartan 2021-05 Yes [id number] 100mg Take 1 [facility] [place] 100 mg 1-22 tablet by ity of tablet 00:00: mouth in [place] 00 the Medical morning. Branch albuterol 2021-05 Yes [id number] 2{puff} Inhale 2 [facility] (PROAIR 1-22 Puffs ity of HFA) 90 00:00: every 6 [place] mcg/actuati 00 (six) Medical on inhaler hours as Branc h needed for Wheezing, Shortness of Breath or Chest tightness. losartan 2021-05 Yes [id number] 100mg Take 1 [facility] [place] 100 mg 1-22 tablet by ity of tablet 00:00: mouth in [place] 00 the Medical morning. Branch albuterol 2021-05 Yes [id number] 2{puff} Inhale 2 [facility] (PROAIR 1-22 Puffs ity of HFA) 90 00:00: every 6 [place] mcg/actuati 00 (six) Medical on inhaler hours as Branc h needed for Wheezing, Shortness of Breath or Chest tightness. losartan 2021-05 Yes [id number] 100mg Take 1 [facility] [place] 100 mg 1-22 tablet by ity of tablet 00:00: mouth in [place] 00 the Medical morning. Branch albuterol 2021-05 Yes [id number] 2{puff} Inhale 2 [facility] (PROAIR 1-22 Puffs ity of HFA) 90 00:00: every 6 [place] mcg/actuati 00 (six) Medical on inhaler hours as Branc h needed for Wheezing, Shortness of Breath or Chest tightness. losartan 2021-05 Yes [id number] 100mg Take 1 [facility] [place] 100 mg 1-22 tablet by ity of tablet 00:00: mouth in [place] 00 the Medical morning. Branch albuterol 2021-05 Yes [id number] 2{puff} Inhale 2 [facility] (PROAIR 1-22 Puffs ity of HFA) 90 00:00: every 6 [place] mcg/actuati 00 (six) Medical on inhaler hours as Branc h needed for Wheezing, Shortness of Breath or Chest tightness. losartan 2021-05 Yes [id number] 100mg Take 1 [facility] [place] 100 mg 1-22 tablet by ity of tablet 00:00: mouth in [place] 00 the Medical morning. Branch albuterol 2021-05 Yes [id number] 2{puff} Inhale 2 [facility] (PROAIR 1-22 Puffs ity of HFA) 90 00:00: every 6 [place] mcg/actuati 00 (six) Medical on inhaler hours as Branc h needed for Wheezing, Shortness of Breath or Chest tightness. losartan 2021-05 Yes [id number] 100mg Take 1 [facility] [place] 100 mg 1-22 tablet by ity of tablet 00:00: mouth in [place] 00 the Medical morning. Branch albuterol 2021-05 Yes [id number] 2{puff} Inhale 2 [facility] (PROAIR 1-22 Puffs ity of HFA) 90 00:00: every 6 [place] mcg/actuati 00 (six) Medical on inhaler hours as Branc h needed for Wheezing, Shortness of Breath or Chest tightness. losartan 2021-05 Yes [id number] 100mg Take 1 [facility] [place] 100 mg 1-22 tablet by ity of tablet 00:00: mouth in [place] 00 the Medical morning. Branch albuterol 2021-05 Yes [id number] 2{puff} Inhale 2 [facility] (PROAIR 1-22 Puffs ity of HFA) 90 00:00: every 6 [place] mcg/actuati 00 (six) Medical on inhaler hours as Branc h needed for Wheezing, Shortness of Breath or Chest tightness. losartan 2021-05 Yes [id number] 100mg Take 1 [facility] [place] 100 mg 1-22 tablet by ity of tablet 00:00: mouth in [place] 00 the Medical morning. Branch albuterol 2021-05 Yes [id number] 2{puff} Inhale 2 [facility] (PROAIR 1-22 Puffs ity of HFA) 90 00:00: every 6 [place] mcg/actuati 00 (six) Medical on inhaler hours as Branc h needed for Wheezing, Shortness of Breath or Chest tightness. losartan 2021-05 Yes [id number] 100mg Take 1 [facility] [place] 100 mg 1-22 tablet by ity of tablet 00:00: mouth in [place] 00 the Medical morning. Branch albuterol 2021-05 Yes [id number] 2{puff} Inhale 2 [facility] (PROAIR 1-22 Puffs ity of HFA) 90 00:00: every 6 [place] mcg/actuati 00 (six) Medical on inhaler hours as Branc h needed for Wheezing, Shortness of Breath or Chest tightness. losartan 2021-05 Yes [id number] 100mg Take 1 [facility] [place] 100 mg 1-22 tablet by ity of tablet 00:00: mouth in [place] 00 the Medical morning. Branch albuterol 2021-05 Yes [id number] 2{puff} Inhale 2 [facility] (PROAIR 1-22 Puffs ity of HFA) 90 00:00: every 6 [place] mcg/actuati 00 (six) Medical on inhaler hours as Branc h needed for Wheezing, Shortness of Breath or Chest tightness. losartan 2021-05 Yes [id number] 100mg Take 1 [facility] [place] 100 mg 1-22 tablet by ity of tablet 00:00: mouth in [place] 00 the Medical morning. Branch albuterol 2021-05 Yes [id number] 2{puff} Inhale 2 [facility] (PROAIR 1-22 Puffs ity of HFA) 90 00:00: every 6 [place] mcg/actuati 00 (six) Medical on inhaler hours as Branc h needed for Wheezing, Shortness of Breath or Chest tightness. losartan 2021-05 Yes [id number] 100mg Take 1 [facility] [place] 100 mg 1-22 tablet by ity of tablet 00:00: mouth in [place] 00 the Medical morning. Branch albuterol 2021-05 Yes [id number] 2{puff} Inhale 2 [facility] (PROAIR 1-22 Puffs ity of HFA) 90 00:00: every 6 [place] mcg/actuati 00 (six) Medical on inhaler hours as Branc h needed for Wheezing, Shortness of Breath or Chest tightness. losartan 2021-05 Yes [id number] 100mg Take 1 [facility] [place] 100 mg 1-22 tablet by ity of tablet 00:00: mouth in [place] 00 the Medical morning. Branch albuterol 2021-05 Yes [id number] 2{puff} Inhale 2 [facility] (PROAIR 1-22 Puffs ity of HFA) 90 00:00: every 6 [place] mcg/actuati 00 (six) Medical on inhaler hours as Branc h needed for Wheezing, Shortness of Breath or Chest tightness. losartan 2021-05 Yes [id number] 100mg Take 1 [facility] [place] 100 mg 1-22 tablet by ity of tablet 00:00: mouth in [place] 00 the Medical morning. Branch albuterol 2021-05 Yes [id number] 2{puff} Inhale 2 [facility] (PROAIR 1-22 Puffs ity of HFA) 90 00:00: every 6 [place] mcg/actuati 00 (six) Medical on inhaler hours as Branc h needed for Wheezing, Shortness of Breath or Chest tightness. losartan 2021-05 Yes [id number] 100mg Take 1 [facility] [place] 100 mg 1-22 tablet by ity of tablet 00:00: mouth in [place] 00 the Medical morning. Branch albuterol 2021-05 Yes [id number] 2{puff} Inhale 2 [facility] (PROAIR 1-22 Puffs ity of HFA) 90 00:00: every 6 [place] mcg/actuati 00 (six) Medical on inhaler hours as Branc h needed for Wheezing, Shortness of Breath or Chest tightness. losartan 2021-05 Yes [id number] 100mg Take 1 [facility] [place] 100 mg 1-22 tablet by ity of tablet 00:00: mouth in [place] 00 the Medical morning. Branch albuterol 2021-05 Yes [id number] 2{puff} Inhale 2 [facility] (PROAIR 1-22 Puffs ity of HFA) 90 00:00: every 6 [place] mcg/actuati 00 (six) Medical on inhaler hours as Branc h needed for Wheezing, Shortness of Breath or Chest tightness. losartan 2021-05 Yes [id number] 100mg Take 1 [facility] [place] 100 mg 1-22 tablet by ity of tablet 00:00: mouth in [place] 00 the Medical morning. Branch albuterol 2021-05 Yes [id number] 2{puff} Inhale 2 [facility] (PROAIR 1-22 Puffs ity of HFA) 90 00:00: every 6 [place] mcg/actuati 00 (six) Medical on inhaler hours as Branc h needed for Wheezing, Shortness of Breath or Chest tightness. losartan 2021-05 Yes [id number] 100mg Take 1 [facility] [place] 100 mg 1-22 tablet by ity of tablet 00:00: mouth in [place] 00 the Medical morning. Branch albuterol 2021-05 Yes [id number] 2{puff} Inhale 2 [facility] (PROAIR 1-22 Puffs ity of HFA) 90 00:00: every 6 [place] mcg/actuati 00 (six) Medical on inhaler hours as Branc h needed for Wheezing, Shortness of Breath or Chest tightness. losartan 2021-05 Yes [id number] 100mg Take 1 [facility] [place] 100 mg 1-22 tablet by ity of tablet 00:00: mouth in [place] 00 the Medical morning. Branch albuterol 2021-05 Yes [id number] 2{puff} Inhale 2 [facility] (PROAIR 1-22 Puffs ity of HFA) 90 00:00: every 6 [place] mcg/actuati 00 (six) Medical on inhaler hours as Branc h needed for Wheezing, Shortness of Breath or Chest tightness. losartan 2021-05 Yes [id number] 100mg Take 1 [place] 100 mg 1-22 tablet by ity of tablet 00:00: mouth in [place] 00 the Medical morning. Branch albuterol 2021-05 Yes [id number] 2{puff} Inhale 2 [facility] (PROAIR 1-22 Puffs ity of HFA) 90 00:00: every 6 [place] mcg/actuati 00 (six) Medical on inhaler hours as Branc h needed for Wheezing, Shortness of Breath or Chest tightness. losartan 2021-05 Yes [id number] 100mg Take 1 [place] 100 mg 1-22 tablet by ity of tablet 00:00: mouth in [place] 00 the Medical morning. Branch albuterol 2021-05 Yes [id number] 2{puff} Inhale 2 [facility] (PROAIR 1-22 Puffs ity of HFA) 90 00:00: every 6 [place] mcg/actuati 00 (six) Medical on inhaler hours as Branc h needed for Wheezing, Shortness of Breath or Chest tightness. losartan 2021-05 Yes [id number] 100mg Take 1 [place] 100 mg 1-22 tablet by ity of tablet 00:00: mouth in [place] 00 the Medical morning. Branch apixaban Yes 1358 5mg Take 1 [facility] (ELIQUIS) 5 9-30 tablet by ity of mg tablet 00:00: mouth [place] 00 the Medical morning Branch and 1 tablet in the evening. Indication s: atrial fibrillati on apixaban Yes 1358 5mg Take 1 [facility] (ELIQUIS) 5 9-30 tablet by ity of mg tablet 00:00: mouth [place] 00 the Medical morning Branch and 1 tablet in the evening. Indication s: atrial fibrillati on apixaban 0 Yes 1358 5mg Take 1 [facility] (ELIQUIS) 5 9-30 tablet by ity of mg tablet 00:00: mouth [place] 00 the Medical morning Branch and 1 tablet in the evening. Indication s: atrial fibrillati on apixaban Yes 1358 5mg Take 1 [facility] (ELIQUIS) 5 9-30 tablet by ity of mg tablet 00:00: mouth [place] 00 the Medical morning Branch and 1 tablet in the evening. Indication s: atrial fibrillati on apixaban Yes 1358 5mg Take 1 [facility] (ELIQUIS) 5 9-30 tablet by ity of mg tablet 00:00: mouth [place] 00 the Medical morning Branch and 1 tablet in the evening. Indication s: atrial fibrillati on apixaban Yes 1358 5mg Take 1 [facility] (ELIQUIS) 5 9-30 tablet by ity of mg tablet 00:00: mouth [place] 00 the Medical morning Branch and 1 tablet in the evening. Indication s: atrial fibrillati on apixaban Yes 1358 5mg Take 1 [facility] (ELIQUIS) 5 9-30 tablet by ity of mg tablet 00:00: mouth [place] 00 the Medical morning Branch and 1 tablet in the evening. Indication s: atrial fibrillati on apixaban Yes 1358 5mg Take 1 [facility] (ELIQUIS) 5 9-30 tablet by ity of mg tablet 00:00: mouth [place] 00 the Medical morning Branch and 1 tablet in the evening. Indication s: atrial fibrillati on apixaban Yes 1358 5mg Take 1 [facility] (ELIQUIS) 5 9-30 tablet by ity of mg tablet 00:00: mouth [place] 00 the Medical morning Branch and 1 tablet in the evening. Indication s: atrial fibrillati on apixaban 2021- No 1358 5mg Take 1 [facility] (ELIQUIS) 5 9-30 11-25 tablet by it y of mg tablet 00:00: 00:00 mouth in [place] as 00 :00 the Medical morning Branch and 1 tablet in the evening. Indication s: atrial fibrillati on apixaban 2021-0 2022- No 1358 5mg Take 1 [facility] s (ELIQUIS) 5 02-09 11-25 tablet by it y of mg tablet 00:00: 00:00 mouth in [facility] as 00 :00 the Branch and 1 tablet in the evening. Indication s: atrial fibrillati on metFORMIN 2021-0 Yes [id number] 1000mg Take 1 [facility] 1,000 mg 9-23 tablet by ity of tablet 00:00: mouth in [place] the Branch and 1 tablet in the evening. Take with meals. Omeprazole 2021-0 Yes [id number] 20mg Take 1 [facility] 20 mg 9-23 tablet by ity of tablet 00:00: mouth in [place] the . Branch metFORMIN 2021-0 Yes [id number] 1000mg Take 1 [facility] 1,000 mg 9-23 tablet by ity of tablet 00:00: mouth in [place] the Branch and 1 tablet in the evening. Take with meals. Omeprazole 2021-0 Yes [id number] 20mg Take 1 [facility] 20 mg 9-23 tablet by ity of tablet 00:00: mouth in [place] the . Branch metFORMIN 2021-0 Yes [id number] 1000mg Take 1 [facility] 1,000 mg 9-23 tablet by ity of tablet 00:00: mouth in [place] the Branch and 1 tablet in the evening. Take with meals. Omeprazole 2021-0 Yes [id number] 20mg Take 1 [facility] 20 mg 9-23 tablet by ity of tablet 00:00: mouth in [place] the . Branch metFORMIN 2-0 Yes [id number] 1000mg Take 1 [facility] 1,000 mg 9-23 tablet by ity of tablet 00:00: mouth in [place] the Branch and 1 tablet in the evening. Take with meals. Omeprazole 2-0 Yes [id number] 20mg Take 1 [facility] 20 mg 9-23 tablet by ity of tablet 00:00: mouth in [place] [address] the . Branch metFORMIN 2-0 Yes [id number] 1000mg Take 1 [facility] 1,000 mg 9-23 tablet by ity of tablet 00:00: mouth in [place] [address] the Branch and 1 tablet in the evening. Take with meals. Omeprazole 2-0 Yes [id number] 20mg Take 1 [facility] 20 mg 9-23 tablet by ity of tablet 00:00: mouth in [place] the morning. Branch metFORMIN 2022-0 Yes [id number] 1000mg Take 1 [facility] 1,000 mg 9-23 tablet by ity of tablet 00:00: mouth in [place] [address] the morning Branch and 1 tablet in the evening. Take with meals. Omeprazole 2022-0 Yes [id number] 20mg Take 1 [facility] 20 mg 9-23 tablet by ity of tablet 00:00: mouth in [place] the morning. Branch metFORMIN 2022-0 Yes [id number] 1000mg Take 1 [facility] 1,000 mg 9-23 tablet by ity of tablet 00:00: mouth in [place] [address] the morning Branch and 1 tablet in the evening. Take with meals. Omeprazole 2022-0 Yes [id number] 20mg Take 1 [facility] 20 mg 9-23 tablet by ity of tablet 00:00: mouth in [place] the . Branch metFORMIN 2022-0 Yes [id number] 1000mg Take 1 [facility] 1,000 mg 9-23 tablet by ity of tablet 00:00: mouth in [place] [address] the [place] and 1 tablet in the evening. Take with meals. Omeprazole 2022-0 Yes [id number] 20mg Take 1 [facility] 20 mg 9-23 tablet by ity of tablet 00:00: mouth in [place] the . Branch metFORMIN 2022-0 Yes [id number] 1000mg Take 1 [facility] 1,000 mg 9-23 tablet by ity of tablet 00:00: mouth in [place] [address] the [place] and 1 tablet in the evening. Take with meals. Omeprazole 2022-0 Yes [id number] 20mg Take 1 [facility] 20 mg 9-23 tablet by ity of tablet 00:00: mouth in [place] the morning. Branch metFORMIN 2022-0 Yes [id number] 1000mg Take 1 [facility] 1,000 mg 9-23 tablet by ity of tablet 00:00: mouth in [place] [address] the morning Branch and 1 tablet in the evening. Take with meals. Omeprazole 2022-0 Yes [id number] 20mg Take 1 [facility] 20 mg 9-23 tablet by ity of tablet 00:00: mouth in [place] [address] the morning. Branch metFORMIN 2022-0 Yes [id number] 1000mg Take 1 [facility] 1,000 mg 9-23 tablet by ity of tablet 00:00: mouth in [place] 00 the Medical morning Branch and 1 tablet in the evening. Take with meals. Omeprazole 2022-0 Yes [id number] 20mg Take 1 [facility] 20 mg 9-23 tablet by ity of tablet 00:00: mouth in [place] the morning. Branch metFORMIN 2022-0 Yes [id number] 1000mg Take 1 [facility] 1,000 mg 9-23 tablet by ity of tablet 00:00: mouth in [place] the morning Branch and 1 tablet in the evening. Take with meals. Omeprazole 2022-0 Yes [id number] 20mg Take 1 [facility] 20 mg 9-23 tablet by ity of tablet 00:00: mouth in [place] the morning. Branch metFORMIN 2022-0 Yes [id number] 1000mg Take 1 [facility] 1,000 mg 9-23 tablet by ity of tablet 00:00: mouth in [place] [address] the morning Branch and 1 tablet in the evening. Take with meals. Omeprazole 2022-0 Yes [id number] 20mg Take 1 [facility] 20 mg 9-23 tablet by ity of tablet 00:00: mouth in [place] the morning. Branch metFORMIN 2022-0 Yes [id number] 1000mg Take 1 [facility] 1,000 mg 9-23 tablet by ity of tablet 00:00: mouth in [place] the morning Branch and 1 tablet in the evening. Take with meals. Omeprazole 2022-0 Yes [id number] 20mg Take 1 [facility] 20 mg 9-23 tablet by ity of tablet 00:00: mouth in [place] the morning. Branch metFORMIN 2022-0 Yes [id number] 1000mg Take 1 [facility] 1,000 mg 9-23 tablet by ity of tablet 00:00: mouth in [place] [address] the morning Branch and 1 tablet in the evening. Take with meals. Omeprazole 2022-0 Yes [id number] 20mg Take 1 [facility] 20 mg 9-23 tablet by ity of tablet 00:00: mouth in [place] the morning. Branch metFORMIN 2022-0 Yes [id number] 1000mg Take 1 [facility] 1,000 mg 9-23 tablet by ity of tablet 00:00: mouth in [place] [address] the morning Branch and 1 tablet in the evening. Take with meals. Omeprazole 2022-0 Yes [id number] 20mg Take 1 [facility] 20 mg 9-23 tablet by ity of tablet 00:00: mouth in [place] 00 the Medical morning. Branch metFORMIN 2022-0 Yes [id number] 1000mg Take 1 [facility] 1,000 mg 9-23 tablet by ity of tablet 00:00: mouth in [place] the Medical morning Branch and 1 tablet in the evening. Take with meals. Omeprazole 2022-0 Yes [id number] 20mg Take 1 [facility] 20 mg 9-23 tablet by ity of tablet 00:00: mouth in [place] the Medical morning. Branch metFORMIN 2022-0 Yes [id number] 1000mg Take 1 [facility] 1,000 mg 9-23 tablet by ity of tablet 00:00: mouth in [place] [address] the morning Branch and 1 tablet in the evening. Take with meals. Omeprazole 2022-0 Yes [id number] 20mg Take 1 [facility] 20 mg 9-23 tablet by ity of tablet 00:00: mouth in [place] the Medical morning. Branch metFORMIN 2022-0 Yes [id number] 1000mg Take 1 [facility] 1,000 mg 9-23 tablet by ity of tablet 00:00: mouth in [place] [address] the morning Branch and 1 tablet in the evening. Take with meals. Omeprazole 2022-0 Yes [id number] 20mg Take 1 [facility] 20 mg 9-23 tablet by ity of tablet 00:00: mouth in [place] the Medical morning. Branch metFORMIN 2022-0 2022- No [id number] 1000mg Take 1 [facility] 1,000 mg 9-23 12-12 tablet by ity o f tablet 00:00: 00:00 mouth in [place] 00 :00 the morning Branch and 1 tablet in the evening. Take with meals. Omeprazole 2022-0 2022- No [id number] 20mg Take 1 [facility] 20 mg 9-23 12-12 tablet by ity of tablet 00:00: 00:00 mouth in [place] 00 :00 the Medical morning. Branch metFORMIN 2022-0 2022- No [id number] 1000mg Take 1 [facility] 1,000 mg 9-23 12-12 tablet by ity o f tablet 00:00: 00:00 mouth in [place] 00 :00 the morning Branch and 1 tablet in the evening. Take with meals. Omeprazole 2022-0 2022- No [id number] 20mg Take 1 [facility] 20 mg 9-23 12-12 tablet by ity of tablet 00:00: 00:00 mouth in [place] 00 :00 the Medical morning. Branch apixaban 0 Yes 1358 5mg Take 1 [facility] (ELIQUIS) 5 9-07 tablet by ity of mg tablet 00:00: mouth [place] 00 the Medical morning Branch and 1 tablet in the evening. Indication s: atrial fibrillati on apixaban 0 Yes 1358 5mg Take 1 [facility] (ELIQUIS) 5 9-07 tablet by ity of mg tablet 00:00: mouth in [place] 00 the Medical morning Branch and 1 tablet in the evening. Indication s: atrial fibrillati on apixaban 0 Yes 1358 5mg Take 1 [facility] (ELIQUIS) 5 9-07 tablet by ity of mg tablet 00:00: mouth in [place] 00 the Medical morning Branch and 1 tablet in the evening. Indication s: atrial fibrillati on apixaban 0 Yes 1358 5mg Take 1 [facility] (ELIQUIS) 5 9-07 tablet by ity of mg tablet 00:00: mouth [place] 00 the Medical morning Branch and 1 tablet in the evening. Indication s: atrial fibrillati on apixaban 0 Yes 1358 5mg Take 1 [facility] (ELIQUIS) 5 9-07 tablet by ity of mg tablet 00:00: mouth in [place] 00 the Medical morning Branch and 1 tablet in the evening. Indication s: atrial fibrillati on apixaban 0 Yes 1358 5mg Take 1 [facility] (ELIQUIS) 5 9-07 tablet by ity of mg tablet 00:00: mouth in [place] 00 the Medical morning Branch and 1 tablet in the evening. Indication s: atrial fibrillati on apixaban 0 Yes 1358 5mg Take 1 [facility] (ELIQUIS) 5 9-07 tablet by ity of mg tablet 00:00: [place] 00 the Medical morning Branch and 1 tablet in the evening. Indication s: atrial fibrillati on apixaban 0 Yes 1358 5mg Take 1 [facility] (ELIQUIS) 5 9-07 tablet by [facility] mg tablet 00:00: [place] 00 the Medical morning Branch and 1 tablet in the evening. Indication s: atrial fibrillati on apixaban 2021- No 1358 5mg Take 1 [facility] (ELIQUIS) 5 9-07 09-30 tablet by it y of mg tablet 00:00: 00:00 mouth in [place] 00 :00 the Medical morning Branch and 1 tablet in the evening. Indication s: atrial fibrillati on montelukast 2021- No 10mg Take 10 mg [facility] (SINGULAIR) 8-25 08-25 by mouth. it y of 10 mg 10:02: 00:00 [place] tablet 41 :00 Medical Branch montelust 0 Yes [id number] 10mg Take 1 [facility] (SINGULAIR) 8-25 tablet by ity of 10 mg 00:00: mouth in [place] tablet 00 the Medical morning. [place] montelust Yes [id number] 10mg Take 1 [facility] (SINGULAIR) 8-25 tablet by ity of 10 mg 00:00: mouth in [place] tablet 00 the Medical morning. [place] montelust Yes [id number] 10mg Take 1 [facility] (SINGULAIR) 8-25 tablet by ity of 10 mg 00:00: mouth in [place] tablet 00 the Medical morning. [place] [facility] [id number] 10mg Take 1 [facility] (SINGULAIR) 8-25 tablet by ity of 10 mg 00:00: mouth in [place] tablet 00 the Medical morning. [place] [facility] Yes [id number] 10mg Take 1 [facility] (SINGULAIR) 8-25 tablet by ity of 10 mg 00:00: mouth in [place] tablet 00 the Medical morning. [place] montelust 0 Yes [id number] 10mg Take 1 [facility] (SINGULAIR) 8-25 tablet by ity of 10 mg 00:00: mouth in [place] tablet 00 the Medical morning. [place] [facility] [id number] 10mg Take 1 [facility] (SINGULAIR) 8-25 tablet by ity of 10 mg 00:00: mouth in [place] tablet 00 the Medical morning. [place] [facility] Yes [id number] 10mg Take 1 [facility] (SINGULAIR) 8-25 tablet by ity of 10 mg 00:00: mouth in [place] tablet 00 the Medical morning. [place] [facility] Yes [id number] 10mg Take 1 [facility] (SINGULAIR) 8-25 tablet by ity of 10 mg 00:00: mouth in [place] tablet 00 the Medical morning. Branch montelukast 0 Yes [id number] 10mg Take 1 [facility] (SINGULAIR) 8-25 tablet by ity of 10 mg 00:00: mouth in [place] tablet 00 the Medical morning. Branch montelukast 0 Yes [id number] 10mg Take 1 [facility] (SINGULAIR) 8-25 tablet by ity of 10 mg 00:00: mouth in [place] tablet 00 the Medical morning. Branch montelukast 0 Yes [id number] 10mg Take 1 [facility] (SINGULAIR) 8-25 tablet by ity of 10 mg 00:00: mouth in [place] tablet 00 the Medical morning. Branch montelukast Yes [id number] 10mg Take 1 [facility] (SINGULAIR) 8-25 tablet by ity of 10 mg 00:00: mouth in [place] tablet 00 the Medical morning. Branch montelukast Yes [id number] 10mg Take 1 [facility] (SINGULAIR) 8-25 tablet by ity of 10 mg 00:00: mouth in [place] tablet 00 the Medical morning. Branch montelukast Yes [id number] 10mg Take 1 [facility] (SINGULAIR) 8-25 tablet by ity of 10 mg 00:00: mouth in [place] tablet 00 the Medical morning. Branch montelukast Yes [id number] 10mg Take 1 [facility] (SINGULAIR) 8-25 tablet by ity of 10 mg 00:00: mouth in [place] tablet 00 the Medical morning. Branch montelukast 0 Yes [id number] 10mg Take 1 [facility] (SINGULAIR) 8-25 tablet by ity of 10 mg 00:00: mouth in [place] tablet 00 the Medical morning. Branch montelukast 0 Yes [id number] 10mg Take 1 [facility] (SINGULAIR) 8-25 tablet by ity of 10 mg 00:00: mouth in [place] tablet 00 the Medical morning. Branch montelukast 0 Yes [id number] 10mg Take 1 [facility] (SINGULAIR) 8-25 tablet by ity of 10 mg 00:00: mouth in [place] tablet 00 the Medical morning. Branch montelukast 2022-0 Yes [id number] 10mg Take 1 [facility] (SINGULAIR) 8-25 tablet by ity of 10 mg 00:00: mouth in [place] tablet 00 the Medical morning. Branch montelukast 2021-0 Yes [id number] 10mg Take 1 [facility] (SINGULAIR) 8-25 tablet by ity of 10 mg 00:00: mouth in [place] tablet 00 the Medical morning. Branch montelukast 2021-0 Yes [id number] 10mg Take 1 [facility] (SINGULAIR) 8-25 tablet by ity of 10 mg 00:00: mouth in [place] tablet 00 the Medical morning. Branch montelukast 2021-0 Yes [id number] 10mg Take 1 [facility] (SINGULAIR) 8-25 tablet by ity of 10 mg 00:00: mouth in [place] tablet 00 the Medical morning. Branch montelukast 0 Yes [id number] 10mg Take 1 [facility] (SINGULAIR) 8-25 tablet by ity of 10 mg 00:00: mouth in [place] tablet 00 the Medical morning. Branch montelukast 0 Yes [id number] 10mg Take 1 [facility] (SINGULAIR) 8-25 tablet by ity of 10 mg 00:00: mouth in [place] tablet 00 the Medical morning. Branch montelukast 0 Yes [id number] 10mg Take 1 [facility] (SINGULAIR) 8-25 tablet by ity of 10 mg 00:00: mouth in [place] tablet 00 the Medical morning. Branch montelukast 0 Yes [id number] 10mg Take 1 [facility] (SINGULAIR) 8-25 tablet by ity of 10 mg 00:00: mouth in [place] tablet 00 the Medical morning. Branch montelukast 0 Yes [id number] 10mg Take 1 [facility] (SINGULAIR) 8-25 tablet by ity of 10 mg 00:00: mouth in [place] tablet 00 the Medical morning. Branch montelukast 2021-0 Yes [id number] 10mg Take 1 [facility] (SINGULAIR) 8-25 tablet by ity of 10 mg 00:00: mouth in [place] tablet 00 the Medical morning. Branch montelukast 2021-0 Yes [id number] 10mg Take 1 [facility] (SINGULAIR) 8-25 tablet by ity of 10 mg 00:00: mouth in [place] tablet 00 the Medical morning. [facility] [id number] 10mg Take 1 [facility] (SINGULAIR) 8-25 tablet by ity of 10 mg 00:00: mouth in [place] tablet 00 the Medical morning. [facility]- No [id number] 10mg Take 1 [facility] (SINGULAIR) 8-25 02-14 tablet by it y of 10 mg 00:00: 00:00 mouth in [place] tablet 00 :00 the Medical morning. Branch apixaban Yes 1358 5mg Take 1 [facility] (ELIQUIS) 5 8-19 tablet by it[facility] of mg tablet 00:00: mouth [place] 00 the Medical morning Branch and 1 tablet in the evening. Indication s: atrial fibrillati on apixaban Yes 1358 5mg Take 1 [facility] (ELIQUIS) 5 8-19 tablet by ity of mg tablet 00:00: mouth [place] 00 the Medical morning Branch and 1 tablet in the evening. Indication s: atrial fibrillati on apixaban Yes 1358 5mg Take 1 [facility] (ELIQUIS) 5 8-19 tablet by ity of mg tablet 00:00: mouth in [place] 00 the Medical morning Branch and 1 tablet in the evening. Indication s: atrial fibrillati on apixaban Yes 1358 5mg Take 1 [facility] (ELIQUIS) 5 8-19 tablet by ity of mg tablet 00:00: mouth [place] 00 the Medical morning Branch and 1 tablet in the evening. Indication s: atrial fibrillati on apixaban Yes 1358 5mg Take 1 [facility] (ELIQUIS) 5 8-19 tablet by ity of mg tablet 00:00: mouth [place] 00 the Medical morning Branch and 1 tablet in the evening. Indication s: atrial fibrillati on apixaban Yes 1358 5mg Take 1 [facility] (ELIQUIS) 5 8-19 tablet by ity of mg tablet 00:00: mouth [place] 00 the Medical morning Branch and 1 tablet in the evening. Indication s: atrial fibrillati on apixaban 2021- No 1358 5mg Take 1 [facility] (ELIQUIS) 5 8-19 09-07 tablet by it y of mg tablet 00:00: 00:00 mouth in [facility] as 00 :00 the [facility] morning [place] and 1 tablet in the evening. Indication s: atrial fibrillati on metFORMIN 2022-0 Yes [id number] 1000mg Take 1 [facility] 1,000 mg 8-02 tablet by ity of tablet 00:00: mouth in [address] morning [place] and 1 tablet in the evening. Take with meals. metFORMIN 2022-0 Yes [id number] 1000mg Take 1 [facility] 1,000 mg 8-02 tablet by ity of tablet 00:00: mouth in [address] morning [place] and 1 tablet in the evening. Take with meals. metFORMIN 2022-0 Yes [id number] 1000mg Take 1 [facility] 1,000 mg 8-02 tablet by ity of tablet 00:00: mouth in [address] and 1 tablet in the evening. Take with meals. metFORMIN 2022-0 Yes [id number] 1000mg Take 1 [facility] 1,000 mg 8-02 tablet by ity of tablet 00:00: mouth in [address] and 1 tablet in the evening. Take with meals. metFORMIN 2022-0 Yes [id number] 1000mg Take 1 [facility] 1,000 mg 8-02 tablet by ity of tablet 00:00: mouth in [address] and 1 tablet in the evening. Take with meals. metFORMIN 2022-0 Yes [id number] 1000mg Take 1 [facility] 1,000 mg 8-02 tablet by ity of tablet 00:00: mouth in [address] and 1 tablet in the evening. Take with meals. metFORMIN 2022-0 Yes [id number] 1000mg Take 1 [facility] 1,000 mg 8-02 tablet by ity of tablet 00:00: mouth in [address] and 1 tablet in the evening. Take with meals. metFORMIN 2022-0 Yes [id number] 1000mg Take 1 [facility] 1,000 mg 8-02 tablet by ity of tablet 00:00: mouth in [address] and 1 tablet in the evening. Take with meals. metFORMIN 2022-0 Yes [id number] 1000mg Take 1 [facility] 1,000 mg 8-02 tablet by ity of tablet 00:00: mouth in [address] and 1 tablet in the evening. Take with meals. metFORMIN 2022-0 Yes [id number] 1000mg Take 1 [facility] 1,000 mg - tablet by ity of tablet 00:00: mouth in [place] 00 the Medical morning Branch and 1 tablet in the evening. Take with meals. metFORMIN 2021- No [id number] 1000mg Take 1 [facility] 1,000 mg 12-12 tablet by ity o f tablet 00:00: 00:00 mouth in [place] 00 :00 the Medical morning Branch and 1 tablet in the evening. Take with meals. metFORMIN 2021- No [id number] 1000mg Take 1 [facility] 1,000 mg 12-12 tablet by ity o f tablet 00:00: 00:00 mouth in [place] 00 :00 the Medical morning Branch and 1 tablet in the evening. Take with meals. apixaban Yes 1358 5mg Take 1 [facility] (ELIQUIS) 5 7-21 tablet by ity of mg tablet 00:00: mouth in [facility] s 00 the Medical morning Branch and 1 tablet in the evening. Indication s: atrial fibrillati on apixaban Yes 1358 5mg Take 1 [facility] (ELIQUIS) 5 7-21 tablet by ity of mg tablet 00:00: mouth in [facility] s 00 the Medical morning Branch and 1 tablet in the evening. Indication s: atrial fibrillati on apixaban 2021- No 1358 5mg Take 1 [facility] (ELIQUIS) 5 7-21 08-19 tablet by it y of mg tablet 00:00: 00:00 mouth in [place] [facility] 00 :00 the Medical morning Branch and 1 tablet in the evening. Indication s: atrial fibrillati on chlorphenir Yes [id number] 4mg Take 1 [facility] amine 4 mg 6-29 tablet by ity of tablet 00:00: mouth [place] 00 every 6 Medical (six) Branch hours as needed for Allergies or Runny nose. calcium/mag Yes [id number] 1{each} Take 1 [facility] nesium/zinc 6-29 Each by ity o f (CALCIUM-MA 00:00: mouth [place] GNESUIUM-ZI 00 daily. Medica l [place]) Branch 333-133-5 mg Tab benzonatate Yes [id number] 100mg Take 1 [facility] 100 mg 6-29 capsule by ity of capsule 00:00: mouth 3 [place] 00 (three) Medical times Branch daily as needed for Cough. nirmatrelvi 2021-0 Yes [id number] 3{tbl} Take 3 [facility] r-ritonavir 6-29 tablets by it y of (PAXLOVID, 00:00: mouth 2 [place] EUA,) 150 00 (two) Medical mg x 2- 100 times Branch mg tablet daily. chlorphenir 2022-0 Yes [id number] 4mg Take 1 [facility] amine 4 mg 6-29 tablet by ity of tablet 00:00: mouth [place] 00 every 6 Medical (six) Branch hours as needed for Allergies or Runny nose. calcium/mag 2021-0 Yes [id number] 1{each} Take 1 [facility] nesium/zinc 6-29 Each by ity o f (CALCIUM-MA 00:00: mouth [place] GNESUIUM-ZI 00 daily. Medica l NC) Branch 333-133-5 mg Tab benzonatate 2021-0 Yes [id number] 100mg Take 1 [facility] 100 mg 6-29 capsule by ity of capsule 00:00: mouth 3 [place] 00 (three) Medical times Branch daily as needed for Cough. nirmatrelvi 2021-0 Yes [id number] 3{tbl} Take 3 [facility] r-ritonavir 6-29 tablets by it y of (PAXLOVID, 00:00: mouth 2 [place] EUA,) 150 00 (two) Medical mg x 2- 100 times Branch mg tablet daily. chlorphenir 2021-0 Yes [id number] 4mg Take 1 [facility] amine 4 mg 6-29 tablet by ity of tablet 00:00: mouth [place] 00 every 6 Medical (six) Branch hours as needed for Allergies or Runny nose. calcium/mag 2-0 Yes [id number] 1{each} Take 1 [facility] nesium/zinc 6-29 Each by ity o f (CALCIUM-MA 00:00: mouth [place] GNESUIUM-ZI 00 daily. Medica l NC) Branch 333-133-5 mg Tab benzonatate 202-0 Yes [id number] 100mg Take 1 [facility] 100 mg 6-29 capsule by ity of capsule 00:00: mouth 3 [place] 00 (three) Medical times Branch daily as needed for Cough. nirmatrelvi Yes [id number] 3{tbl} Take 3 [facility] r-ritonavir 6-29 tablets by it y of (PAXLOVID, 00:00: mouth 2 [place] EUA,) 150 00 (two) Medical mg x 2- 100 times Branch mg tablet daily. chlorphenir 2021-0 Yes [id number] 4mg Take 1 [facility] amine 4 mg 6-29 tablet by ity of tablet 00:00: mouth [place] 00 every 6 Medical (six) Branch hours as needed for Allergies or Runny nose. calcium/mag 2021-0 Yes [id number] 1{each} Take 1 [facility] nesium/zinc 6-29 Each by ity o f (CALCIUM-MA 00:00: mouth [place] GNESUIUM-ZI 00 daily. Medica l NC) Branch 333-133-5 mg Tab benzonatate 2021-0 Yes [id number] 100mg Take 1 [facility] 100 mg 6-29 capsule by ity of capsule 00:00: mouth 3 [place] 00 (three) Medical times Branch daily as needed for Cough. nirmatrelvi Yes [id number] 3{tbl} Take 3 [facility] r-ritonavir 6-29 tablets by it y of (PAXLOVID, 00:00: mouth 2 [place] EUA,) 150 00 (two) Medical mg x 2- 100 times Branch mg tablet daily. chlorphenir Yes [id number] 4mg Take 1 [facility] amine 4 mg 6-29 tablet by ity of tablet 00:00: mouth [place] 00 every 6 Medical (six) Branch hours as needed for Allergies or Runny nose. calcium/mag 2021-0 Yes [id number] 1{each} Take 1 [facility] nesium/zinc 6-29 Each by ity o f (CALCIUM-MA 00:00: mouth [place] GNESUIUM-ZI 00 daily. Medica l NC) Branch 333-133-5 mg Tab benzonatate 2021-0 Yes [id number] 100mg Take 1 [facility] 100 mg 6-29 capsule by ity of capsule 00:00: mouth 3 [place] 00 (three) Medical times Branch daily as needed for Cough. nirmatrelvi 2021-0 Yes [id number] 3{tbl} Take 3 [facility] r-ritonavir 6-29 tablets by it y of (PAXLOVID, 00:00: mouth 2 [place] EUA,) 150 00 (two) Medical mg x 2- 100 times Branch mg tablet daily. chlorphenir 2022-0 Yes [id number] 4mg Take 1 [facility] amine 4 mg 6-29 tablet by ity of tablet 00:00: mouth [place] 00 every 6 Medical (six) Branch hours as needed for Allergies or Runny nose. calcium/mag 2-0 Yes [id number] 1{each} Take 1 [facility] nesium/zinc 6-29 Each by ity o f (CALCIUM-MA 00:00: mouth [place] GNESUIUM-ZI 00 daily. Medica l NC) Branch 333-133-5 mg Tab benzonatate 2022-0 Yes [id number] 100mg Take 1 [facility] 100 mg 6-29 capsule by ity of capsule 00:00: mouth 3 [place] 00 (three) Medical times Branch daily as needed for Cough. nirmatrelvi 2021-0 Yes [id number] 3{tbl} Take 3 [facility] r-ritonavir 6-29 tablets by it y of (PAXLOVID, 00:00: mouth 2 [place] EUA,) 150 00 (two) Medical mg x 2- 100 times Branch mg tablet daily. chlorphenir 2-0 Yes [id number] 4mg Take 1 [facility] amine 4 mg 6-29 tablet by ity of tablet 00:00: mouth [place] 00 every 6 Medical (six) Branch hours as needed for Allergies or Runny nose. calcium/mag 2021-0 Yes [id number] 1{each} Take 1 [facility] nesium/zinc 6-29 Each by ity o f (CALCIUM-MA 00:00: mouth [place] GNESUIUM-ZI 00 daily. Medica l NC) Branch 333-133-5 mg Tab benzonatate 2022-0 Yes [id number] 100mg Take 1 [facility] 100 mg 6-29 capsule by ity of capsule 00:00: mouth 3 [place] 00 (three) Medical times Branch daily as needed for Cough. nirmatrelvi 2021-0 Yes [id number] 3{tbl} Take 3 [facility] r-ritonavir 6-29 tablets by it y of (PAXLOVID, 00:00: mouth 2 [place] EUA,) 150 00 (two) Medical mg x 2- 100 times Branch mg tablet daily. chlorphenir 2022-0 Yes [id number] 4mg Take 1 [facility] amine 4 mg 6-29 tablet by ity of tablet 00:00: mouth [place] 00 every 6 Medical (six) Branch hours as needed for Allergies or Runny nose. calcium/mag 2-0 Yes [id number] 1{each} Take 1 [facility] nesium/zinc 6-29 Each by ity o f (CALCIUM-MA 00:00: mouth [place] GNESUIUM-ZI 00 daily. Medica l NC) Branch 333-133-5 mg Tab benzonatate 2022-0 Yes [id number] 100mg Take 1 [facility] 100 mg 6-29 capsule by ity of capsule 00:00: mouth 3 [place] 00 (three) Medical times Branch daily as needed for Cough. nirmatrelvi 2021-0 Yes [id number] 3{tbl} Take 3 [facility] r-ritonavir 6-29 tablets by it y of (PAXLOVID, 00:00: mouth 2 [place] EUA,) 150 00 (two) Medical mg x 2- 100 times Branch mg tablet daily. chlorphenir 2-0 Yes [id number] 4mg Take 1 [facility] amine 4 mg 6-29 tablet by ity of tablet 00:00: mouth [place] 00 every 6 Medical (six) Branch hours as needed for Allergies or Runny nose. calcium/mag 2021-0 Yes [id number] 1{each} Take 1 [facility] nesium/zinc 6-29 Each by ity o f (CALCIUM-MA 00:00: mouth [place] GNESUIUM-ZI 00 daily. Medica l NC) Branch 333-133-5 mg Tab benzonatate 2-0 Yes [id number] 100mg Take 1 [facility] 100 mg 6-29 capsule by ity of capsule 00:00: mouth 3 [place] 00 (three) Medical times Branch daily as needed for Cough. nirmatrelvi 2022-0 Yes [id number] 3{tbl} Take 3 [facility] r-ritonavir 6-29 tablets by it y of (PAXLOVID, 00:00: mouth 2 [place] EUA,) 150 00 (two) Medical mg x 2- 100 times Branch mg tablet daily. chlorphenir 2022-0 Yes [id number] 4mg Take 1 [facility] amine 4 mg 6-29 tablet by ity of tablet 00:00: mouth [place] 00 every 6 Medical (six) Branch hours as needed for Allergies or Runny nose. calcium/mag Yes [id number] 1{each} Take 1 [facility] nesium/zinc 6-29 Each by ity o f (CALCIUM-MA 00:00: mouth [place] GNESUIUM-ZI 00 daily. Medica l NC) Branch 333-133-5 mg Tab benzonatate Yes [id number] 100mg Take 1 [facility] 100 mg 6-29 capsule by ity of capsule 00:00: mouth 3 [place] 00 (three) Medical times Branch daily as needed for Cough. nirmatrelvi Yes [id number] 3{tbl} Take 3 [facility] r-ritonavir 6-29 tablets by it y of (PAXLOVID, 00:00: mouth 2 [place] EUA,) 150 00 (two) Medical mg x 2- 100 times Branch mg tablet daily. chlorphenir 2021- No [id number] 4mg Take 1 [facility] amine 4 mg 6-29 09-23 tablet by ity of tablet 00:00: 00:00 mouth [place] 00 :00 every 6 Medical (six) Branch hours as needed for Allergies or Runny nose. calcium/mag 2021- No [id number] 1{each} Take 1 [facility] nesium/zinc 6-29 09-23 Each by ity of (CALCIUM-MA 00:00: 00:00 mouth [place] GNESUIUM-ZI 00 :00 daily. Medica l NC) Branch 333-133-5 mg Tab benzonatate 2021- No [id number] 100mg Take 1 [facility] 100 mg 6-29 09-23 capsule by ity of capsule 00:00: 00:00 mouth 3 [place] 00 :00 (three) Medical times Branch daily as needed for Cough. nirmatrelvi 2021- No [id number] 3{tbl} Take 3 [facility] r-ritonavir 6-29 09-23 tablets by i ty of (PAXLOVID, 00:00: 00:00 mouth 2 [place] EUA,) 150 00 :00 (two) Medical mg x 2- 100 times Branch mg tablet daily. chlorphenir 2022-0 2022- No [id number] 4mg Take 1 [facility] amine 4 mg 11-08 tablet by ity of tablet 00:00: 00:00 mouth [place] 00 :00 every 6 Medical (six) Branch hours as needed for Allergies or Runny nose. calcium/mag 2021- No [id number] 1{each} Take 1 [facility] nesium/zinc 11-08 Each by ity of (CALCIUM-MA 00:00: 00:00 mouth [place] GNESUIUM-ZI 00 :00 daily. Medica l [place]) Branch 333-133-5 mg Tab benzonatate 2021- No [id number] 100mg Take 1 [facility] 100 mg 11-08 capsule by ity of capsule 00:00: 00:00 mouth 3 [place] 00 :00 (three) Medical times Branch daily as needed for Cough. nirmatrelvi 2021- No [id number] 3{tbl} Take 3 [facility] r-ritonavir 11-08 tablets by i ty of (PAXLOVID, 00:00: 00:00 mouth 2 [place] EUA,) 150 00 :00 (two) Medical mg x 2- 100 times Branch mg tablet daily. vitamin 2021- No [id number] 1{tbl} Take 1 [facility] D3-folic 11-0830 tablet by ity o f acid 125 00:00: 04:59 mouth [place] mcg (5,000 00 :00 daily for Medi lula unit)-1 mg 30 days. Branc h Tab mupirocin 2 Yes [id number] Apply to [facility] % ointment 6-15 area(s) 3 ity of 00:00: (three) [place] 00 times Medical daily. Branch mupirocin 2 Yes [id number] Apply to [facility] % ointment 6-15 area(s) 3 ity of 00:00: (three) [place] 00 times Medical daily. Branch mupirocin 2 Yes [id number] Apply to [facility] % ointment 6-15 area(s) 3 ity of 00:00: (three) [place] 00 times Medical daily. Branch mupirocin 2 2022-0 Yes [id number] Apply to [facility] % ointment 6-15 area(s) 3 ity of 00:00: (three) [place] 00 times Medical daily. Branch mupirocin 2 2-0 Yes [id number] Apply to [facility] % ointment 6-15 area(s) 3 ity of 00:00: (three) [place] 00 times Medical daily. Branch mupirocin 2 2021-0 Yes [id number] Apply to [facility] % ointment 6-15 area(s) 3 ity of 00:00: (three) [place] 00 times Medical daily. Branch mupirocin 2 2021-0 Yes [id number] Apply to [facility] % ointment 6-15 area(s) 3 ity of 00:00: (three) [place] 00 times Medical daily. Branch mupirocin 2 2021-0 Yes [id number] Apply to [facility] % ointment 6-15 area(s) 3 ity of 00:00: (three) [place] 00 times Medical daily. Branch mupirocin 2 2021-0 Yes [id number] Apply to [facility] % ointment 6-15 area(s) 3 ity of 00:00: (three) [place] 00 times Medical daily. Branch mupirocin 2 2021-0 Yes [id number] Apply to [facility] % ointment 6-15 area(s) 3 ity of 00:00: (three) [place] 00 times Medical daily. Branch mupirocin 2 2021-0 Yes [id number] Apply to Univers % ointment 6-15 area(s) 3 ity of 00:00: (three) [place] 00 times Medical daily. Branch mupirocin 2 2-0 Yes [id number] Apply to Univers % ointment 6-15 area(s) 3 ity of 00:00: (three) [place] 00 times Medical daily. Branch mupirocin 2 2-0 Yes [id number] Apply to Univers % ointment 6-15 area(s) 3 ity of 00:00: (three) [place] 00 times Medical daily. Branch mupirocin 2 2-0 Yes [id number] Apply to [facility] % ointment 6-15 area(s) 3 ity of 00:00: (three) [place] 00 times Medical daily. Branch mupirocin 2 2022-0 Yes [id number] Apply to [facility] % ointment 6-15 area(s) 3 ity of 00:00: (three) [place] 00 times Medical daily. Branch mupirocin 2 2-0 Yes [id number] Apply to [facility] % ointment 6-15 area(s) 3 ity of 00:00: (three) [place] 00 times Medical daily. Branch mupirocin 2 2-0 Yes [id number] Apply to [facility] % ointment 6-15 area(s) 3 ity of 00:00: (three) [place] 00 times Medical daily. Branch mupirocin 2 2-0 Yes [id number] Apply to [facility] % ointment 6-15 area(s) 3 ity of 00:00: (three) [place] 00 times Medical daily. Branch mupirocin 2 2-0 Yes [id number] Apply to [facility] % ointment 6-15 area(s) 3 ity of 00:00: (three) [place] 00 times Medical daily. Branch mupirocin 2 2021-0 Yes [id number] Apply to [facility] % ointment 6-15 area(s) 3 ity of 00:00: (three) [place] 00 times Medical daily. Branch mupirocin 2 2-0 Yes [id number] Apply to [facility] % ointment 6-15 area(s) 3 ity of 00:00: (three) [place] 00 times Medical daily. Branch mupirocin 2 2-0 Yes [id number] Apply to [facility] % ointment 6-15 area(s) 3 ity of 00:00: (three) [place] 00 times Medical daily. Branch mupirocin 2 2-0 Yes [id number] Apply to Univers % ointment 6-15 area(s) 3 ity of 00:00: (three) [place] 00 times Medical daily. Branch mupirocin 2 2022-0 Yes [id number] Apply to Univers % ointment 6-15 area(s) 3 ity of 00:00: (three) [place] 00 times Medical daily. Branch mupirocin 2 2-0 Yes [id number] Apply to Univers % ointment 6-15 area(s) 3 ity of 00:00: (three) [place] 00 times Medical daily. Branch mupirocin 2 2-0 Yes [id number] Apply to Univers % ointment 6-15 area(s) 3 ity of 00:00: (three) [place] 00 times Medical daily. Branch mupirocin 2 2-0 Yes [id number] Apply to [facility] % ointment 6-15 area(s) 3 ity of 00:00: (three) [place] 00 times Medical daily. Branch mupirocin 2 2-0 Yes [id number] Apply to Univers % ointment 6-15 area(s) 3 ity of 00:00: (three) [place] 00 times Medical daily. Branch mupirocin 2 2-0 Yes [id number] Apply to Univers % ointment 6-15 area(s) 3 ity of 00:00: (three) [place] 00 times Medical daily. Branch mupirocin 2 2021-0 Yes [id number] Apply to [facility] % ointment 6-15 area(s) 3 ity of 00:00: (three) [place] 00 times Medical daily. Branch mupirocin 2 2021-0 Yes [id number] Apply to Univers % ointment 6-15 area(s) 3 ity of 00:00: (three) [place] 00 times Medical daily. Branch mupirocin 2 2-0 Yes [id number] Apply to Univers % ointment 6-15 area(s) 3 ity of 00:00: (three) [place] 00 times Medical daily. Branch mupirocin 2 2-0 Yes [id number] Apply to [facility] % ointment 6-15 area(s) 3 ity of 00:00: (three) [place] 00 times Medical daily. Branch mupirocin 2 2-0 Yes [id number] Apply to Univers % ointment 6-15 area(s) 3 ity of 00:00: (three) [place] 00 times Medical daily. Branch mupirocin 2 2-0 Yes [id number] Apply to [facility] % ointment 6-15 area(s) 3 ity of 00:00: (three) [place] 00 times Medical daily. Branch mupirocin 2 2-0 Yes [id number] Apply to [facility] % ointment 6-15 area(s) 3 ity of 00:00: (three) [place] 00 times Medical daily. Branch mupirocin 2 2022-0 Yes [id number] Apply to [facility] % ointment 6-15 area(s) 3 ity of 00:00: (three) [place] 00 times Medical daily. Branch mupirocin 2 2022-0 Yes [id number] Apply to [facility] % ointment 6-15 area(s) 3 ity of 00:00: (three) [place] times Medical daily. Branch mupirocin 2 2022-0 Yes [id number] Apply to [facility] % ointment 6-15 area(s) 3 ity of 00:00: (three) [place] 00 times Medical daily. Branch mupirocin 2 2022-0 Yes [id number] Apply to [facility] % ointment 6-15 area(s) 3 ity of 00:00: (three) [place] times Medical daily. Branch mupirocin 2 2022-0 Yes [id number] Apply to [facility] % ointment 6-15 area(s) 3 ity of 00:00: (three) [place] times Medical daily. Branch mupirocin 2 2-0 Yes [id number] Apply to [facility] % ointment 6-15 area(s) 3 ity of 00:00: (three) [place] times Medical daily. Branch mupirocin 2 2-0 Yes [id number] Apply to [facility] % ointment 6-15 area(s) 3 ity of 00:00: (three) [place] times Medical daily. Branch mupirocin 2 2022-0 Yes [id number] Apply to [facility] % ointment 6-15 area(s) 3 ity of 00:00: (three) [place] times Medical daily. Branch mupirocin 2 2022-0 Yes [id number] Apply to [facility] % ointment 6-15 area(s) 3 ity of 00:00: (three) [place] times Medical daily. Branch mupirocin 2 2022-0 Yes [id number] Apply to [facility] % ointment 6-15 area(s) 3 ity of 00:00: (three) [place] 00 times Medical daily. Branch mupirocin 2 2022-0 Yes [id number] Apply to [facility] % ointment 6-15 area(s) 3 ity of 00:00: (three) [place] 00 times Medical daily. Branch mupirocin 2 2-0 Yes [id number] Apply to [facility] % ointment 6-15 area(s) 3 ity of 00:00: (three) [place] 00 times Medical daily. Branch mupirocin 2 2-0 Yes [id number] Apply to [facility] % ointment 6-15 area(s) 3 ity of 00:00: (three) [place] 00 times Medical daily. Branch mupirocin 2 2-0 Yes [id number] Apply to [facility] % ointment 6-15 area(s) 3 ity of 00:00: (three) [place] 00 times Medical daily. Branch mupirocin 2 2022-0 Yes [id number] Apply to [facility] % ointment 6-15 area(s) 3 ity of 00:00: (three) [place] 00 times Medical daily. Branch mupirocin 2 2-0 Yes [id number] Apply to [facility] % ointment 6-15 area(s) 3 ity of 00:00: (three) [place] 00 times Medical daily. Branch mupirocin 2 2-0 Yes [id number] Apply to [facility] % ointment 6-15 area(s) 3 ity of 00:00: (three) [place] 00 times Medical daily. Branch mupirocin 2 2-0 Yes [id number] Apply to [facility] % ointment 6-15 area(s) 3 ity of 00:00: (three) [place] 00 times Medical daily. Branch mupirocin 2 2022-0 Yes [id number] Apply to [facility] % ointment 6-15 area(s) 3 ity of 00:00: (three) [place] 00 times Medical daily. Branch mupirocin 2 2-0 Yes [id number] Apply to [facility] % ointment 6-15 area(s) 3 ity of 00:00: (three) [place] 00 times Medical daily. Branch mupirocin 2 2022-0 Yes [id number] Apply to [facility] % ointment 6-15 area(s) 3 ity of 00:00: (three) [place] 00 times Medical daily. Branch mupirocin 2 2022-0 Yes [id number] Apply to [facility] % ointment 6-15 area(s) 3 ity of 00:00: (three) [place] 00 times Medical daily. Branch isosorbide 2021-0 Yes [id number] 60mg Take 1 [facility] n[facility] mononitrate 5-05 tablet by ity of 60 mg 24 hr 00:00: mouth [place] tablet 00 daily. Medical Branch isosorbide 2021-0 Yes [id number] 60mg Take 1 [facility] nivers mononitrate 5-05 tablet by ity of 60 mg 24 hr 00:00: mouth [place] tablet 00 daily. Medical [facility] isosorbide 2021-0 Yes [id number] 60mg Take 1 U nivers mononitrate 5-05 tablet by ity of 60 mg 24 hr 00:00: mouth [place] tablet 00 daily. Medical [facility] isosorbide 2021-0 Yes [id number] 60mg Take 1 U nivers mononitrate 5-05 tablet by ity of 60 mg 24 hr 00:00: mouth [place] tablet 00 daily. Medical [facility] isosorbide 2021-0 Yes [id number] 60mg Take 1 U nivers mononitrate 5-05 tablet by ity of 60 mg 24 hr 00:00: mouth [place] tablet 00 daily. Medical [facility] isosorbide 2021-0 Yes [id number] 60mg Take 1 U nivers mononitrate 5-05 tablet by ity of 60 mg 24 hr 00:00: mouth [place] tablet 00 daily. Medical [facility] isosorbide 2021-0 Yes [id number] 60mg Take 1 U nivers mononitrate 5-05 tablet by ity of 60 mg 24 hr 00:00: mouth [place] tablet 00 daily. Medical [facility] isosorbide 2021-0 Yes [id number] 60mg Take 1 [facility] nivers mononitrate 5-05 tablet by ity of 60 mg 24 hr 00:00: mouth [place] tablet 00 daily. Medical [facility] isosorbide 2021-0 Yes [id number] 60mg Take 1 U nivers mononitrate 5-05 tablet by ity of 60 mg 24 hr 00:00: mouth [place] tablet 00 daily. Medical [facility] isosorbide 2-0 Yes [id number] 60mg Take 1 U nivers mononitrate 5-05 tablet by ity of 60 mg 24 hr 00:00: mouth [place] tablet 00 daily. Medical [facility] isosorbide 2-0 Yes [id number] 60mg Take 1 U nivers mononitrate 5-05 tablet by ity of 60 mg 24 hr 00:00: mouth [place] tablet 00 daily. Medical [facility] isosorbide 2021-0 Yes [id number] 60mg Take 1 U nivers mononitrate 5-05 tablet by ity of 60 mg 24 hr 00:00: mouth [place] tablet 00 daily. Medical [facility] isosorbide 2021-0 Yes [id number] 60mg Take 1 U nivers mononitrate 5-05 tablet by ity of 60 mg 24 hr 00:00: mouth [place] tablet 00 daily. Medical [facility] isosorbide 2021-0 Yes [id number] 60mg Take 1 U nivers mononitrate 5-05 tablet by ity of 60 mg 24 hr 00:00: mouth [place] tablet 00 daily. Medical [facility] isosorbide 2021-0 Yes [id number] 60mg Take 1 U nivers mononitrate 5-05 tablet by ity of 60 mg 24 hr 00:00: mouth [place] tablet 00 daily. Medical [facility] isosorbide 2021-0 Yes [id number] 60mg Take 1 [facility] nivers mononitrate 5-05 tablet by ity of 60 mg 24 hr 00:00: mouth [place] tablet 00 daily. Medical [facility] isosorbide 2021-0 Yes [id number] 60mg Take 1 U nivers mononitrate 5-05 tablet by ity of 60 mg 24 hr 00:00: mouth [place] tablet 00 daily. Medical [facility] isosorbide 2021-0 Yes [id number] 60mg Take 1 U nivers mononitrate 5-05 tablet by ity of 60 mg 24 hr 00:00: mouth [place] tablet 00 daily. Medical [facility] isosorbide 2-0 Yes [id number] 60mg Take 1 U nivers mononitrate 5-05 tablet by ity of 60 mg 24 hr 00:00: mouth [place] tablet 00 daily. Medical [facility] isosorbide 2021-0 Yes [id number] 60mg Take 1 U nivers mononitrate 5-05 tablet by ity of 60 mg 24 hr 00:00: mouth [place] tablet 00 daily. Medical Branch isosorbide 2-0 Yes [id number] 60mg Take 1 U nivers mononitrate 5-05 tablet by ity of 60 mg 24 hr 00:00: mouth [place] tablet 00 daily. Medical [facility] isosorbide 2-0 Yes [id number] 60mg Take 1 [facility] nivers mononitrate 5-05 tablet by ity of 60 mg 24 hr 00:00: mouth [place] tablet 00 daily. Medical [facility] isosorbide 2021-0 Yes [id number] 60mg Take 1 [facility] nivers mononitrate 5-05 tablet by ity of 60 mg 24 hr 00:00: mouth [place] tablet 00 daily. Medical [facility] isosorbide 2021-0 Yes [id number] 60mg Take 1 [facility] nivers mononitrate 5-05 tablet by ity of 60 mg 24 hr 00:00: mouth [place] tablet 00 daily. Medical [facility] isosorbide 2021-0 Yes [id number] 60mg Take 1 [facility] nivers mononitrate 5-05 tablet by ity of 60 mg 24 hr 00:00: mouth [place] tablet 00 daily. Medical [facility] isosorbide 2021-0 Yes [id number] 60mg Take 1 U nivers mononitrate 5-05 tablet by ity of 60 mg 24 hr 00:00: mouth [place] tablet 00 daily. Medical [facility] isosorbide 2021-0 Yes [id number] 60mg Take 1 U nivers mononitrate 5-05 tablet by ity of 60 mg 24 hr 00:00: mouth [place] tablet 00 daily. Medical [facility] isosorbide 2021-0 Yes [id number] 60mg Take 1 [facility] nivers mononitrate 5-05 tablet by ity of 60 mg 24 hr 00:00: mouth [place] tablet 00 daily. Medical [facility] isosorbide 2021-0 Yes [id number] 60mg Take 1 U nivers mononitrate 5-05 tablet by ity of 60 mg 24 hr 00:00: mouth [place] tablet 00 daily. Medical [facility] isosorbide 2-0 Yes [id number] 60mg Take 1 [facility] nivers mononitrate 5-05 tablet by ity of 60 mg 24 hr 00:00: mouth [place] tablet 00 daily. Medical [facility] isosorbide 2-0 Yes [id number] 60mg Take 1 U nivers mononitrate 5-05 tablet by ity of 60 mg 24 hr 00:00: mouth [place] tablet 00 daily. Medical [facility] isosorbide 2-0 Yes [id number] 60mg Take 1 U nivers mononitrate 5-05 tablet by ity of 60 mg 24 hr 00:00: mouth [place] tablet 00 daily. Medical [facility] isosorbide 2022-0 Yes [id number] 60mg Take 1 [facility] nivers mononitrate 5-05 tablet by ity of 60 mg 24 hr 00:00: mouth [place] tablet 00 daily. Medical [facility] isosorbide 2021-0 Yes [id number] 60mg Take 1 [facility] nivers mononitrate 5-05 tablet by ity of 60 mg 24 hr 00:00: mouth [place] tablet 00 daily. Medical [facility] isosorbide 2021-0 Yes [id number] 60mg Take 1 [facility] nivers mononitrate 5-05 tablet by ity of 60 mg 24 hr 00:00: mouth [place] tablet 00 daily. Medical [facility] isosorbide 2021-0 Yes [id number] 60mg Take 1 [facility] nivers mononitrate 5-05 tablet by ity of 60 mg 24 hr 00:00: mouth [place] tablet 00 daily. Medical [facility] isosorbide 0 Yes [id number] 60mg Take 1 U nivers mononitrate 5-05 tablet by ity of 60 mg 24 hr 00:00: mouth [place] tablet 00 daily. Medical [facility] isosorbide 2021-0 Yes [id number] 60mg Take 1 U nivers mononitrate 5-05 tablet by ity of 60 mg 24 hr 00:00: mouth [place] tablet 00 daily. Medical [facility] isosorbide 2021-0 Yes [id number] 60mg Take 1 [facility] nivers mononitrate 5-05 tablet by ity of 60 mg 24 hr 00:00: mouth [place] tablet 00 daily. Medical [facility] isosorbide 2021-0 Yes [id number] 60mg Take 1 [facility] nivers mononitrate 5-05 tablet by ity of 60 mg 24 hr 00:00: mouth [place] tablet 00 daily. Medical [facility] isosorbide 2021-0 Yes [id number] 60mg Take 1 [facility] nivers mononitrate 5-05 tablet by ity of 60 mg 24 hr 00:00: mouth [place] tablet 00 daily. Medical [facility] isosorbide 2021-0 Yes [id number] 60mg Take 1 [facility] nivers mononitrate 5-05 tablet by ity of 60 mg 24 hr 00:00: mouth [place] tablet 00 daily. Medical [facility] isosorbide 2021-0 Yes [id number] 60mg Take 1 [facility] nivers mononitrate 5-05 tablet by ity of 60 mg 24 hr 00:00: mouth [place] tablet 00 daily. Medical [facility] isosorbide 2021-0 Yes [id number] 60mg Take 1 [facility] nivers mononitrate 5-05 tablet by ity of 60 mg 24 hr 00:00: mouth [place] tablet 00 daily. Medical [facility] isosorbide 2021-0 Yes [id number] 60mg Take 1 [facility] nivers mononitrate 5-05 tablet by ity of 60 mg 24 hr 00:00: mouth [place] tablet 00 daily. Medical [facility] isosorbide 2021-0 Yes [id number] 60mg Take 1 [facility] nivers mononitrate 5-05 tablet by ity of 60 mg 24 hr 00:00: mouth [place] tablet 00 daily. Medical [facility] isosorbide 2021-0 Yes [id number] 60mg Take 1 [facility] nivers mononitrate 5-05 tablet by ity of 60 mg 24 hr 00:00: mouth [place] tablet 00 daily. Medical [facility] isosorbide 2021-0 Yes [id number] 60mg Take 1 [facility] nivers mononitrate 5-05 tablet by ity of 60 mg 24 hr 00:00: mouth [place] tablet 00 daily. Medical [facility] isosorbide 2021-0 Yes [id number] 60mg Take 1 U nivers mononitrate 5-05 tablet by ity of 60 mg 24 hr 00:00: mouth [place] tablet 00 daily. Medical [facility] isosorbide 2021-0 Yes [id number] 60mg Take 1 U nivers mononitrate 5-05 tablet by ity of 60 mg 24 hr 00:00: mouth [place] tablet 00 daily. Medical [facility] isosorbide 2021-0 Yes [id number] 60mg Take 1 [facility] nivers mononitrate 5-05 tablet by ity of 60 mg 24 hr 00:00: mouth [place] tablet 00 daily. Medical [facility] isosorbide 2021-0 Yes [id number] 60mg Take 1 [facility] nivers mononitrate 5-05 tablet by ity of 60 mg 24 hr 00:00: mouth [place] tablet 00 daily. Medical [facility] isosorbide 2021-0 Yes [id number] 60mg Take 1 U nivers mononitrate 5-05 tablet by ity of 60 mg 24 hr 00:00: mouth [place] tablet 00 daily. Medical [facility] isosorbide 2021-0 Yes [id number] 60mg Take 1 U nivers mononitrate 5-05 tablet by ity of 60 mg 24 hr 00:00: mouth [place] tablet 00 daily. Medical [facility] isosorbide 2021-0 Yes [id number] 60mg Take 1 U nivers mononitrate 5-05 tablet by ity of 60 mg 24 hr 00:00: mouth [place] tablet 00 daily. Medical [facility] isosorbide 2021-0 Yes [id number] 60mg Take 1 U nivers mononitrate 5-05 tablet by ity of 60 mg 24 hr 00:00: mouth [place] tablet 00 daily. Medical Branch isosorbide 2021-0 Yes [id number] 60mg Take 1 [facility] nivers mononitrate 5-05 tablet by ity of 60 mg 24 hr 00:00: mouth [place] tablet 00 daily. Medical [facility] isosorbide 2021-0 Yes [id number] 60mg Take 1 [facility] nivers mononitrate 5-05 tablet by ity of 60 mg 24 hr 00:00: mouth [place] tablet 00 daily. Medical Branch budesonide- Yes [id number] 2{puff} Inhale 2 [facility] formoteroL 4-26 Puffs 2 ity of (SYMBICORT) 00:00: (two) [place] 160-4.5 00 times Medical mcg/actuati daily. Branch on inhaler fluticasone Yes [id number] 1{spray Use 1 [facility] propionate 4-26 } [place] in ity o f 50 00:00: each [place] mcg/actuati 00 nostril 2 Med ical on nasal (two) Branch spray times daily. EPINEPHrine Yes ADMINISTER [facility] 0.3 mg/0.3 4-26 0.3 ML IN ity of mL 00:00: THE MUSCLE [place] injection 00 1 TIME NOW Medi lula FOR 1 DOSE Branch budesonide- Yes [id number] 2{puff} Inhale 2 [facility] formoteroL 4-26 Puffs 2 ity of (SYMBICORT) 00:00: (two) [place] 160-4.5 00 times Medical mcg/actuati daily. Branch on inhaler fluticasone Yes [id number] 1{spray Use 1 [facility] propionate 4-26 } [place] in ity o f 50 00:00: each [place] mcg/actuati 00 nostril 2 Med ical on nasal (two) Branch spray times daily. EPINEPHrine Yes ADMINISTER [facility] 0.3 mg/0.3 4-26 0.3 ML IN ity of mL 00:00: THE MUSCLE [place] injection 00 1 TIME NOW Medi lula FOR 1 DOSE Branch budesonide- 2021- Yes [id number] 2{puff} Inhale 2 [facility] formoteroL 4-26 Puffs 2 ity of (SYMBICORT) 00:00: (two) [place] 160-4.5 00 times Medical mcg/actuati daily. Branch on inhaler fluticasone 2021- Yes [id number] 1{spray Use 1 [facility] propionate 4-26 } [place] in ity o f 50 00:00: each [place] mcg/actuati 00 nostril 2 Med ical on nasal (two) Branch spray times daily. EPINEPHrine 2021- Yes ADMINISTER [facility] 0.3 mg/0.3 4-26 0.3 ML IN ity of mL 00:00: THE MUSCLE [place] injection 00 1 TIME NOW Medi lula FOR 1 DOSE Branch budesonide- Yes [id number] 2{puff} Inhale 2 [facility] formoteroL 4-26 Puffs 2 ity of (SYMBICORT) 00:00: (two) [place] 160-4.5 00 times Medical mcg/actuati daily. Branch on inhaler fluticasone Yes [id number] 1{spray Use 1 [facility] propionate 4-26 } [place] in ity o f 50 00:00: each [place] mcg/actuati 00 nostril 2 Med ical on nasal (two) Branch spray times daily. EPINEPHrine 2021- Yes ADMINISTER [facility] 0.3 mg/0.3 4-26 0.3 ML IN ity of mL 00:00: THE MUSCLE [place] injection 00 1 TIME NOW Medi lula FOR 1 DOSE Branch budesonide- 2021-0 Yes [id number] 2{puff} Inhale 2 [facility] formoteroL 4-26 Puffs 2 ity of (SYMBICORT) 00:00: (two) [place] 160-4.5 00 times Medical mcg/actuati daily. Branch on inhaler fluticasone Yes [id number] 1{spray Use 1 [facility] propionate 4-26 } [place] in ity o f 50 00:00: each [place] mcg/actuati 00 nostril 2 Med ical on nasal (two) Branch spray times daily. EPINEPHrine 2021-0 Yes ADMINISTER [facility] 0.3 mg/0.3 4-26 0.3 ML IN ity of mL 00:00: THE MUSCLE [place] injection 00 1 TIME NOW Medi lula FOR 1 DOSE Branch budesonide- 0 Yes [id number] 2{puff} Inhale 2 [facility] formoteroL 4-26 Puffs 2 ity of (SYMBICORT) 00:00: (two) [place] 160-4.5 00 times Medical mcg/actuati daily. Branch on inhaler fluticasone 0 Yes [id number] 1{spray Use 1 [facility] propionate 4-26 } [place] in ity o f 50 00:00: each [place] mcg/actuati 00 nostril 2 Med ical on nasal (two) Branch spray times daily. EPINEPHrine 0 Yes ADMINISTER [facility] 0.3 mg/0.3 4-26 0.3 ML IN ity of mL 00:00: THE MUSCLE [place] injection 00 1 TIME NOW Medi lula FOR 1 DOSE Branch budesonide- 0 Yes [id number] 2{puff} Inhale 2 [facility] formoteroL 4-26 Puffs 2 ity of (SYMBICORT) 00:00: (two) [place] 160-4.5 00 times Medical mcg/actuati daily. Branch on inhaler fluticasone 0 Yes [id number] 1{spray Use 1 [facility] propionate 4-26 } [place] in ity o f 50 00:00: each [place] mcg/actuati 00 nostril 2 Med ical on nasal (two) Branch spray times daily. EPINEPHrine 0 Yes ADMINISTER [facility] 0.3 mg/0.3 4-26 0.3 ML IN ity of mL 00:00: THE MUSCLE [place] injection 00 1 TIME NOW Medi lula FOR 1 DOSE Branch budesonide- 0 Yes [id number] 2{puff} Inhale 2 [facility] formoteroL 4-26 Puffs 2 ity of (SYMBICORT) 00:00: (two) [place] 160-4.5 00 times Medical mcg/actuati daily. Branch on inhaler fluticasone 0 Yes [id number] 1{spray Use 1 [facility] propionate 4-26 } [place] in ity o f 50 00:00: each [place] mcg/actuati 00 nostril 2 Med ical on nasal (two) Branch spray times daily. EPINEPHrine Yes ADMINISTER [facility] 0.3 mg/0.3 4-26 0.3 ML IN ity of mL 00:00: THE MUSCLE [place] injection 00 1 TIME NOW Medi lula FOR 1 DOSE Branch budesonide- Yes [id number] 2{puff} Inhale 2 [facility] formoteroL 4-26 Puffs 2 ity of (SYMBICORT) 00:00: (two) [place] 160-4.5 00 times Medical mcg/actuati daily. Branch on inhaler fluticasone Yes [id number] 1{spray Use 1 [facility] propionate 4-26 } [place] in ity o f 50 00:00: each [place] mcg/actuati 00 nostril 2 Med ical on nasal (two) Branch spray times daily. EPINEPHrine Yes ADMINISTER [facility] 0.3 mg/0.3 4-26 0.3 ML IN ity of mL 00:00: THE MUSCLE [place] injection 00 1 TIME NOW Medi lula FOR 1 DOSE Branch budesonide- Yes [id number] 2{puff} Inhale 2 [facility] formoteroL 4-26 Puffs 2 ity of (SYMBICORT) 00:00: (two) [place] 160-4.5 00 times Medical mcg/actuati daily. Branch on inhaler fluticasone Yes [id number] 1{spray Use 1 [facility] propionate 4-26 } [place] in ity o f 50 00:00: each [place] mcg/actuati 00 nostril 2 Med ical on nasal (two) Branch spray times daily. EPINEPHrine Yes ADMINISTER [facility] 0.3 mg/0.3 4-26 0.3 ML IN ity of mL 00:00: THE MUSCLE [place] injection 00 1 TIME NOW Medi lula FOR 1 DOSE Branch budesonide- 0 Yes [id number] 2{puff} Inhale 2 [facility] formoteroL 4-26 Puffs 2 ity of (SYMBICORT) 00:00: (two) [place] 160-4.5 00 times Medical mcg/actuati daily. Branch on inhaler fluticasone 2021-0 Yes [id number] 1{spray Use 1 [facility] propionate 4-26 } [place] in ity o f 50 00:00: each [place] mcg/actuati 00 nostril 2 Med ical on nasal (two) Branch spray times daily. EPINEPHrine Yes ADMINISTER [facility] 0.3 mg/0.3 4-26 0.3 ML IN ity of mL 00:00: THE MUSCLE [place] injection 00 1 TIME NOW Medi lula FOR 1 DOSE Branch budesonide- 0 Yes [id number] 2{puff} Inhale 2 [facility] formoteroL 4-26 Puffs 2 ity of (SYMBICORT) 00:00: (two) [place] 160-4.5 00 times Medical mcg/actuati daily. Branch on inhaler fluticasone 0 Yes [id number] 1{spray Use 1 [facility] propionate 4-26 } [place] in ity o f 50 00:00: each [place] mcg/actuati 00 nostril 2 Med ical on nasal (two) Branch spray times daily. EPINEPHrine 2021-0 Yes ADMINISTER [facility] 0.3 mg/0.3 4-26 0.3 ML IN ity of mL 00:00: THE MUSCLE [place] injection 00 1 TIME NOW Medi lula FOR 1 DOSE Branch budesonide- 0 Yes [id number] 2{puff} Inhale 2 [facility] formoteroL 4-26 Puffs 2 ity of (SYMBICORT) 00:00: (two) [place] 160-4.5 00 times Medical mcg/actuati daily. Branch on inhaler fluticasone 0 Yes [id number] 1{spray Use 1 [facility] propionate 4-26 } [place] in ity o f 50 00:00: each [place] mcg/actuati 00 nostril 2 Med ical on nasal (two) Branch spray times daily. EPINEPHrine 2021-0 Yes ADMINISTER [facility] 0.3 mg/0.3 4-26 0.3 ML IN ity of mL 00:00: THE MUSCLE [place] injection 00 1 TIME NOW Medi lula FOR 1 DOSE Branch budesonide- 2021-0 Yes [id number] 2{puff} Inhale 2 [facility] formoteroL 4-26 Puffs 2 ity of (SYMBICORT) 00:00: (two) [place] 160-4.5 00 times Medical mcg/actuati daily. Branch on inhaler fluticasone 2021-0 Yes [id number] 1{spray Use 1 [facility] propionate 4-26 } [place] in ity o f 50 00:00: each [place] mcg/actuati 00 nostril 2 Med ical on nasal (two) Branch spray times daily. EPINEPHrine 2021-0 Yes ADMINISTER [facility] 0.3 mg/0.3 4-26 0.3 ML IN ity of mL 00:00: THE MUSCLE [place] injection 00 1 TIME NOW Medi lula FOR 1 DOSE Branch budesonide- 0 Yes [id number] 2{puff} Inhale 2 [facility] formoteroL 4-26 Puffs 2 ity of (SYMBICORT) 00:00: (two) [place] 160-4.5 00 times Medical mcg/actuati daily. Branch on inhaler fluticasone 2021-0 Yes [id number] 1{spray Use 1 [facility] propionate 4-26 } [place] in ity o f 50 00:00: each [place] mcg/actuati 00 nostril 2 Med ical on nasal (two) Branch spray times daily. EPINEPHrine 2021-0 Yes ADMINISTER [facility] 0.3 mg/0.3 4-26 0.3 ML IN ity of mL 00:00: THE MUSCLE [place] injection 00 1 TIME NOW Medi lula FOR 1 DOSE Branch budesonide- 0 Yes [id number] 2{puff} Inhale 2 [facility] formoteroL 4-26 Puffs 2 ity of (SYMBICORT) 00:00: (two) [place] 160-4.5 00 times Medical mcg/actuati daily. Branch on inhaler fluticasone 0 Yes [id number] 1{spray Use 1 [facility] propionate 4-26 } [place] in ity o f 50 00:00: each [place] mcg/actuati 00 nostril 2 Med ical on nasal (two) Branch spray times daily. EPINEPHrine 2021-0 Yes ADMINISTER [facility] 0.3 mg/0.3 4-26 0.3 ML IN ity of mL 00:00: THE MUSCLE [place] injection 00 1 TIME NOW Medi lula FOR 1 DOSE Branch budesonide- 2021-0 Yes [id number] 2{puff} Inhale 2 [facility] formoteroL 4-26 Puffs 2 ity of (SYMBICORT) 00:00: (two) [place] 160-4.5 00 times Medical mcg/actuati daily. Branch on inhaler fluticasone 2021-0 Yes [id number] 1{spray Use 1 [facility] propionate 4-26 } [place] in ity o f 50 00:00: each [place] mcg/actuati 00 nostril 2 Med ical on nasal (two) Branch spray times daily. EPINEPHrine 2021-0 Yes ADMINISTER [facility] 0.3 mg/0.3 4-26 0.3 ML IN ity of mL 00:00: THE MUSCLE [place] injection 00 1 TIME NOW Medi lula FOR 1 DOSE Branch budesonide- 2021-0 Yes [id number] 2{puff} Inhale 2 [facility] formoteroL 4-26 Puffs 2 ity of (SYMBICORT) 00:00: (two) [place] 160-4.5 00 times Medical mcg/actuati daily. Branch on inhaler fluticasone 2021-0 Yes [id number] 1{spray Use 1 [facility] propionate 4-26 } [place] in ity o f 50 00:00: each [place] mcg/actuati 00 nostril 2 Med ical on nasal (two) Branch spray times daily. EPINEPHrine 2021- Yes ADMINISTER [facility] 0.3 mg/0.3 4-26 0.3 ML IN ity of mL 00:00: THE MUSCLE [place] injection 00 1 TIME NOW Medi lula FOR 1 DOSE Branch budesonide- 2021-0 Yes [id number] 2{puff} Inhale 2 [facility] formoteroL 4-26 Puffs 2 ity of (SYMBICORT) 00:00: (two) [place] 160-4.5 00 times Medical mcg/actuati daily. Branch on inhaler fluticasone 2021-0 Yes [id number] 1{spray Use 1 [facility] propionate 4-26 } [place] in ity o f 50 00:00: each [place] mcg/actuati 00 nostril 2 Med ical on nasal (two) Branch spray times daily. EPINEPHrine 2021-0 Yes ADMINISTER [facility] 0.3 mg/0.3 4-26 0.3 ML IN ity of mL 00:00: THE MUSCLE [place] injection 00 1 TIME NOW Medi lula FOR 1 DOSE Branch budesonide- 2021-0 Yes [id number] 2{puff} Inhale 2 [facility] formoteroL 4-26 Puffs 2 ity of (SYMBICORT) 00:00: (two) [place] 160-4.5 00 times Medical mcg/actuati daily. Branch on inhaler fluticasone 2021-0 Yes [id number] 1{spray Use 1 [facility] propionate 4-26 } [place] in ity o f 50 00:00: each [place] mcg/actuati 00 nostril 2 Med ical on nasal (two) Branch spray times daily. EPINEPHrine 2021-0 Yes ADMINISTER [facility] 0.3 mg/0.3 4-26 0.3 ML IN ity of mL 00:00: THE MUSCLE [place] injection 00 1 TIME NOW Medi lula FOR 1 DOSE Branch budesonide- 2021-0 Yes [id number] 2{puff} Inhale 2 [facility] formoteroL 4-26 Puffs 2 ity of (SYMBICORT) 00:00: (two) [place] 160-4.5 00 times Medical mcg/actuati daily. Branch on inhaler fluticasone 2021-0 Yes [id number] 1{spray Use 1 [facility] propionate 4-26 } [place] in ity o f 50 00:00: each [place] mcg/actuati 00 nostril 2 Med ical on nasal (two) Branch spray times daily. EPINEPHrine 2021-0 Yes ADMINISTER [facility] 0.3 mg/0.3 4-26 0.3 ML IN ity of mL 00:00: THE MUSCLE [place] injection 00 1 TIME NOW Medi lula FOR 1 DOSE Branch budesonide- 2021-0 Yes [id number] 2{puff} Inhale 2 [facility] formoteroL 4-26 Puffs 2 ity of (SYMBICORT) 00:00: (two) [place] 160-4.5 00 times Medical mcg/actuati daily. Branch on inhaler fluticasone 2021-0 Yes [id number] 1{spray Use 1 [facility] propionate 4-26 } [place] in ity o f 50 00:00: each [place] mcg/actuati 00 nostril 2 Med ical on nasal (two) Branch spray times daily. EPINEPHrine 2021-0 Yes ADMINISTER [facility] 0.3 mg/0.3 4-26 0.3 ML IN ity of mL 00:00: THE MUSCLE [place] injection 00 1 TIME NOW Medi lula FOR 1 DOSE Branch budesonide- 2021-0 Yes [id number] 2{puff} Inhale 2 [facility] formoteroL 4-26 Puffs 2 ity of (SYMBICORT) 00:00: (two) [place] 160-4.5 00 times Medical mcg/actuati daily. Branch on inhaler fluticasone 2022-0 Yes [id number] 1{spray Use 1 [facility] propionate 4-26 } [place] in ity o f 50 00:00: each [place] mcg/actuati 00 nostril 2 Med ical on nasal (two) Branch spray times daily. EPINEPHrine 2021-0 Yes ADMINISTER [facility] 0.3 mg/0.3 4-26 0.3 ML IN ity of mL 00:00: THE MUSCLE [place] injection 00 1 TIME NOW Medi lula FOR 1 DOSE Branch budesonide- 0 Yes [id number] 2{puff} Inhale 2 [facility] formoteroL 4-26 Puffs 2 ity of (SYMBICORT) 00:00: (two) [place] 160-4.5 00 times Medical mcg/actuati daily. Branch on inhaler fluticasone Yes [id number] 1{spray Use 1 [facility] propionate 4-26 } [place] in ity o f 50 00:00: each [place] mcg/actuati 00 nostril 2 Med ical on nasal (two) Branch spray times daily. EPINEPHrine Yes ADMINISTER [facility] 0.3 mg/0.3 4-26 0.3 ML IN ity of mL 00:00: THE MUSCLE [place] injection 00 1 TIME NOW Medi lula FOR 1 DOSE Branch budesonide- 0 Yes [id number] 2{puff} Inhale 2 [facility] formoteroL 4-26 Puffs 2 ity of (SYMBICORT) 00:00: (two) [place] 160-4.5 00 times Medical mcg/actuati daily. Branch on inhaler fluticasone 2021-0 Yes [id number] 1{spray Use 1 [facility] propionate 4-26 } [place] in ity o f 50 00:00: each [place] mcg/actuati 00 nostril 2 Med ical on nasal (two) Branch spray times daily. EPINEPHrine 2021-0 Yes ADMINISTER [facility] 0.3 mg/0.3 4-26 0.3 ML IN ity of mL 00:00: THE MUSCLE [place] injection 00 1 TIME NOW Medi lula FOR 1 DOSE Branch budesonide- 0 Yes [id number] 2{puff} Inhale 2 [facility] formoteroL 4-26 Puffs 2 ity of (SYMBICORT) 00:00: (two) [place] 160-4.5 00 times Medical mcg/actuati daily. Branch on inhaler fluticasone Yes [id number] 1{spray Use 1 [facility] propionate 4-26 } [place] in ity o f 50 00:00: each [place] mcg/actuati 00 nostril 2 Med ical on nasal (two) Branch spray times daily. EPINEPHrine Yes ADMINISTER [facility] 0.3 mg/0.3 4-26 0.3 ML IN ity of mL 00:00: THE MUSCLE [place] injection 00 1 TIME NOW Medi lula FOR 1 DOSE Branch budesonide- 0 Yes [id number] 2{puff} Inhale 2 [facility] formoteroL 4-26 Puffs 2 ity of (SYMBICORT) 00:00: (two) [place] 160-4.5 00 times Medical mcg/actuati daily. Branch on inhaler fluticasone Yes [id number] 1{spray Use 1 [facility] propionate 4-26 } [place] in ity o f 50 00:00: each [place] mcg/actuati 00 nostril 2 Med ical on nasal (two) Branch spray times daily. EPINEPHrine Yes ADMINISTER [facility] 0.3 mg/0.3 4-26 0.3 ML IN ity of mL 00:00: THE MUSCLE [place] injection 00 1 TIME NOW Medi lula FOR 1 DOSE Branch budesonide- 0 Yes [id number] 2{puff} Inhale 2 [facility] formoteroL 4-26 Puffs 2 ity of (SYMBICORT) 00:00: (two) [place] 160-4.5 00 times Medical mcg/actuati daily. Branch on inhaler fluticasone 0 Yes [id number] 1{spray Use 1 [facility] propionate 4-26 } [place] in ity o f 50 00:00: each [place] mcg/actuati 00 nostril 2 Med ical on nasal (two) Branch spray times daily. EPINEPHrine 2021-0 Yes ADMINISTER [facility] 0.3 mg/0.3 4-26 0.3 ML IN ity of mL 00:00: THE MUSCLE [place] injection 00 1 TIME NOW Medi lula FOR 1 DOSE Branch budesonide- 0 Yes [id number] 2{puff} Inhale 2 [facility] formoteroL 4-26 Puffs 2 ity of (SYMBICORT) 00:00: (two) [place] 160-4.5 00 times Medical mcg/actuati daily. Branch on inhaler fluticasone 2021-0 Yes [id number] 1{spray Use 1 [facility] propionate 4-26 } [place] in ity o f 50 00:00: each [place] mcg/actuati 00 nostril 2 Med ical on nasal (two) Branch spray times daily. EPINEPHrine 2021-0 Yes ADMINISTER [facility] 0.3 mg/0.3 4-26 0.3 ML IN ity of mL 00:00: THE MUSCLE [place] injection 00 1 TIME NOW Medi lula FOR 1 DOSE Branch budesonide- 2021-0 Yes [id number] 2{puff} Inhale 2 [facility] formoteroL 4-26 Puffs 2 ity of (SYMBICORT) 00:00: (two) [place] 160-4.5 00 times Medical mcg/actuati daily. Branch on inhaler fluticasone 0 Yes [id number] 1{spray Use 1 [facility] propionate 4-26 } [place] in ity o f 50 00:00: each [place] mcg/actuati 00 nostril 2 Med ical on nasal (two) Branch spray times daily. EPINEPHrine 2021-0 Yes ADMINISTER [facility] 0.3 mg/0.3 4-26 0.3 ML IN ity of mL 00:00: THE MUSCLE [place] injection 00 1 TIME NOW Medi lula FOR 1 DOSE Branch budesonide- 0 Yes [id number] 2{puff} Inhale 2 [facility] formoteroL 4-26 Puffs 2 ity of (SYMBICORT) 00:00: (two) [place] 160-4.5 00 times Medical mcg/actuati daily. Branch on inhaler fluticasone 2021-0 Yes [id number] 1{spray Use 1 [facility] propionate 4-26 } [place] in ity o f 50 00:00: each [place] mcg/actuati 00 nostril 2 Med ical on nasal (two) Branch spray times daily. EPINEPHrine 2021-0 Yes ADMINISTER [facility] 0.3 mg/0.3 4-26 0.3 ML IN ity of mL 00:00: THE MUSCLE [place] injection 00 1 TIME NOW Medi lula FOR 1 DOSE Branch budesonide- 2021-0 Yes [id number] 2{puff} Inhale 2 [facility] formoteroL 4-26 Puffs 2 ity of (SYMBICORT) 00:00: (two) [place] 160-4.5 00 times Medical mcg/actuati daily. Branch on inhaler fluticasone 2021-0 Yes [id number] 1{spray Use 1 [facility] propionate 4-26 } [place] in ity o f 50 00:00: each [place] mcg/actuati 00 nostril 2 Med ical on nasal (two) Branch spray times daily. EPINEPHrine 2021-0 Yes ADMINISTER [facility] 0.3 mg/0.3 4-26 0.3 ML IN ity of mL 00:00: THE MUSCLE [place] injection 00 1 TIME NOW Medi lula FOR 1 DOSE Branch budesonide- 2021-0 Yes [id number] 2{puff} Inhale 2 [facility] formoteroL 4-26 Puffs 2 ity of (SYMBICORT) 00:00: (two) [place] 160-4.5 00 times Medical mcg/actuati daily. Branch on inhaler fluticasone 2021-0 Yes [id number] 1{spray Use 1 [facility] propionate 4-26 } [place] in ity o f 50 00:00: each [place] mcg/actuati 00 nostril 2 Med ical on nasal (two) Branch spray times daily. EPINEPHrine 2021-0 Yes ADMINISTER [facility] 0.3 mg/0.3 4-26 0.3 ML IN ity of mL 00:00: THE MUSCLE [place] injection 00 1 TIME NOW Medi lula FOR 1 DOSE Branch budesonide- 2021-0 Yes [id number] 2{puff} Inhale 2 [facility] formoteroL 4-26 Puffs 2 ity of (SYMBICORT) 00:00: (two) [place] 160-4.5 00 times Medical mcg/actuati daily. Branch on inhaler fluticasone 2021-0 Yes [id number] 1{spray Use 1 [facility] propionate 4-26 } [place] in ity o f 50 00:00: each [place] mcg/actuati 00 nostril 2 Med ical on nasal (two) Branch spray times daily. EPINEPHrine 2021-0 Yes ADMINISTER [facility] 0.3 mg/0.3 4-26 0.3 ML IN ity of mL 00:00: THE MUSCLE [place] injection 00 1 TIME NOW Medi lula FOR 1 DOSE Branch budesonide- 2021-0 Yes [id number] 2{puff} Inhale 2 [facility] formoteroL 4-26 Puffs 2 ity of (SYMBICORT) 00:00: (two) [place] 160-4.5 00 times Medical mcg/actuati daily. Branch on inhaler fluticasone 2021-0 Yes [id number] 1{spray Use 1 [facility] propionate 4-26 } [place] in ity o f 50 00:00: each [place] mcg/actuati 00 nostril 2 Med ical on nasal (two) Branch spray times daily. EPINEPHrine 2021-0 Yes ADMINISTER [facility] 0.3 mg/0.3 4-26 0.3 ML IN ity of mL 00:00: THE MUSCLE [place] injection 00 1 TIME NOW Medi lula FOR 1 DOSE Branch budesonide- 0 Yes [id number] 2{puff} Inhale 2 [facility] formoteroL 4-26 Puffs 2 ity of (SYMBICORT) 00:00: (two) [place] 160-4.5 00 times Medical mcg/actuati daily. Branch on inhaler fluticasone 2021-0 Yes [id number] 1{spray Use 1 [facility] propionate 4-26 } [place] in ity o f 50 00:00: each [place] mcg/actuati 00 nostril 2 Med ical on nasal (two) Branch spray times daily. EPINEPHrine 2021-0 Yes ADMINISTER [facility] 0.3 mg/0.3 4-26 0.3 ML IN ity of mL 00:00: THE MUSCLE [place] injection 00 1 TIME NOW Medi lula FOR 1 DOSE Branch budesonide- 2021-0 Yes [id number] 2{puff} Inhale 2 [facility] formoteroL 4-26 Puffs 2 ity of (SYMBICORT) 00:00: (two) [place] 160-4.5 00 times Medical mcg/actuati daily. Branch on inhaler fluticasone 0 Yes [id number] 1{spray Use 1 [facility] propionate 4-26 } [place] in ity o f 50 00:00: each [place] mcg/actuati 00 nostril 2 Med ical on nasal (two) Branch spray times daily. EPINEPHrine 2021-0 Yes ADMINISTER [facility] 0.3 mg/0.3 4-26 0.3 ML IN ity of mL 00:00: THE MUSCLE [place] injection 00 1 TIME NOW Medi lula FOR 1 DOSE Branch budesonide- 2021-0 Yes [id number] 2{puff} Inhale 2 [facility] formoteroL 4-26 Puffs 2 ity of (SYMBICORT) 00:00: (two) [place] 160-4.5 00 times Medical mcg/actuati daily. Branch on inhaler fluticasone Yes [id number] 1{spray Use 1 [facility] propionate 4-26 } [place] in ity o f 50 00:00: each [place] mcg/actuati 00 nostril 2 Med ical on nasal (two) Branch spray times daily. EPINEPHrine Yes ADMINISTER [facility] 0.3 mg/0.3 4-26 0.3 ML IN ity of mL 00:00: THE MUSCLE [place] injection 00 1 TIME NOW Medi lula FOR 1 DOSE Branch budesonide- 0 Yes [id number] 2{puff} Inhale 2 [facility] formoteroL 4-26 Puffs 2 ity of (SYMBICORT) 00:00: (two) [place] 160-4.5 00 times Medical mcg/actuati daily. Branch on inhaler fluticasone Yes [id number] 1{spray Use 1 [facility] propionate 4-26 } [place] in ity o f 50 00:00: each [place] mcg/actuati 00 nostril 2 Med ical on nasal (two) Branch spray times daily. EPINEPHrine Yes ADMINISTER [facility] 0.3 mg/0.3 4-26 0.3 ML IN ity of mL 00:00: THE MUSCLE [place] injection 00 1 TIME NOW Medi lula FOR 1 DOSE Branch budesonide- 0 Yes [id number] 2{puff} Inhale 2 [facility] formoteroL 4-26 Puffs 2 ity of (SYMBICORT) 00:00: (two) [place] 160-4.5 00 times Medical mcg/actuati daily. Branch on inhaler fluticasone 2021-0 Yes [id number] 1{spray Use 1 [facility] propionate 4-26 } [place] in ity o f 50 00:00: each [place] mcg/actuati 00 nostril 2 Med ical on nasal (two) Branch spray times daily. EPINEPHrine 0 Yes ADMINISTER [facility] 0.3 mg/0.3 4-26 0.3 ML IN ity of mL 00:00: THE MUSCLE [place] injection 00 1 TIME NOW Medi lula FOR 1 DOSE Branch budesonide- 0 Yes [id number] 2{puff} Inhale 2 [facility] formoteroL 4-26 Puffs 2 ity of (SYMBICORT) 00:00: (two) [place] 160-4.5 00 times Medical mcg/actuati daily. Branch on inhaler fluticasone 0 Yes [id number] 1{spray Use 1 [facility] propionate 4-26 } [place] in ity o f 50 00:00: each [place] mcg/actuati 00 nostril 2 Med ical on nasal (two) Branch spray times daily. EPINEPHrine Yes ADMINISTER [facility] 0.3 mg/0.3 4-26 0.3 ML IN ity of mL 00:00: THE MUSCLE [place] injection 00 1 TIME NOW Medi lula FOR 1 DOSE Branch budesonide- Yes [id number] 2{puff} Inhale 2 [facility] formoteroL 4-26 Puffs 2 ity of (SYMBICORT) 00:00: (two) [place] 160-4.5 00 times Medical mcg/actuati daily. Branch on inhaler fluticasone Yes [id number] 1{spray Use 1 [facility] propionate 4-26 } [place] in ity o f 50 00:00: each [place] mcg/actuati 00 nostril 2 Med ical on nasal (two) Branch spray times daily. EPINEPHrine Yes ADMINISTER [facility] 0.3 mg/0.3 4-26 0.3 ML IN ity of mL 00:00: THE MUSCLE [place] injection 00 1 TIME NOW Medi lula FOR 1 DOSE Branch budesonide- Yes [id number] 2{puff} Inhale 2 [facility] formoteroL 4-26 Puffs 2 ity of (SYMBICORT) 00:00: (two) [place] 160-4.5 00 times Medical mcg/actuati daily. Branch on inhaler fluticasone 0 Yes [id number] 1{spray Use 1 [facility] propionate 4-26 } [place] in ity o f 50 00:00: each [place] mcg/actuati 00 nostril 2 Med ical on nasal (two) Branch spray times daily. EPINEPHrine 2021-0 Yes ADMINISTER [facility] 0.3 mg/0.3 4-26 0.3 ML IN ity of mL 00:00: THE MUSCLE [place] injection 00 1 TIME NOW Medi lula FOR 1 DOSE Branch budesonide- Yes [id number] 2{puff} Inhale 2 [facility] formoteroL 4-26 Puffs 2 ity of (SYMBICORT) 00:00: (two) [place] 160-4.5 00 times Medical mcg/actuati daily. Branch on inhaler fluticasone Yes [id number] 1{spray Use 1 [facility] propionate 4-26 } [place] in ity o f 50 00:00: each [place] mcg/actuati 00 nostril 2 Med ical on nasal (two) Branch spray times daily. EPINEPHrine Yes ADMINISTER [facility] 0.3 mg/0.3 4-26 0.3 ML IN ity of mL 00:00: THE MUSCLE [place] injection 00 1 TIME NOW Medi lula FOR 1 DOSE Branch budesonide- Yes [id number] 2{puff} Inhale 2 [facility] formoteroL 4-26 Puffs 2 ity of (SYMBICORT) 00:00: (two) [place] 160-4.5 00 times Medical mcg/actuati daily. Branch on inhaler fluticasone Yes [id number] 1{spray Use 1 [facility] propionate 4-26 } [place] in ity o f 50 00:00: each [place] mcg/actuati 00 nostril 2 Med ical on nasal (two) Branch spray times daily. EPINEPHrine Yes ADMINISTER [facility] 0.3 mg/0.3 4-26 0.3 ML IN ity of mL 00:00: THE MUSCLE [place] injection 00 1 TIME NOW Medi lula FOR 1 DOSE Branch budesonide- 0 Yes [id number] 2{puff} Inhale 2 [facility] formoteroL 4-26 Puffs 2 ity of (SYMBICORT) 00:00: (two) [place] 160-4.5 00 times Medical mcg/actuati daily. Branch on inhaler EPINEPHrine Yes ADMINISTER [facility] 0.3 mg/0.3 4-26 0.3 ML IN ity of mL 00:00: THE MUSCLE [place] injection 00 1 TIME NOW Medi lula FOR 1 DOSE Branch budesonide- 0 Yes [id number] 2{puff} Inhale 2 [facility] formoteroL 4-26 Puffs 2 ity of (SYMBICORT) 00:00: (two) [place] 160-4.5 00 times Medical mcg/actuati daily. Branch on inhaler EPINEPHrine 2021-0 Yes ADMINISTER [facility] 0.3 mg/0.3 4-26 0.3 ML IN ity of mL 00:00: THE MUSCLE [place] injection 00 1 TIME NOW Medi lula FOR 1 DOSE Branch budesonide- 2021-0 Yes [id number] 2{puff} Inhale 2 [facility] formoteroL 4-26 Puffs 2 ity of (SYMBICORT) 00:00: (two) [place] 160-4.5 00 times Medical mcg/actuati daily. Branch on inhaler EPINEPHrine Yes ADMINISTER [facility] 0.3 mg/0.3 4-26 0.3 ML IN ity of mL 00:00: THE MUSCLE [place] injection 00 1 TIME NOW Medi lula FOR 1 DOSE Branch budesonide- 2021-0 Yes [id number] 2{puff} Inhale 2 [facility] formoteroL 4-26 Puffs 2 ity of (SYMBICORT) 00:00: (two) [place] 160-4.5 00 times Medical mcg/actuati daily. Branch on inhaler EPINEPHrine 2021-0 Yes ADMINISTER [facility] 0.3 mg/0.3 4-26 0.3 ML IN ity of mL 00:00: THE MUSCLE [place] injection 00 1 TIME NOW Medi lula FOR 1 DOSE Branch budesonide- 2021-0 Yes [id number] 2{puff} Inhale 2 [facility] formoteroL 4-26 Puffs 2 ity of (SYMBICORT) 00:00: (two) [place] 160-4.5 00 times Medical mcg/actuati daily. Branch on inhaler EPINEPHrine 2021- Yes ADMINISTER [facility] 0.3 mg/0.3 4-26 0.3 ML IN ity of mL 00:00: THE MUSCLE [place] injection 00 1 TIME NOW Medi lula FOR 1 DOSE Branch budesonide- 2021-0 Yes [id number] 2{puff} Inhale 2 [facility] formoteroL 4-26 Puffs 2 ity of (SYMBICORT) 00:00: (two) [place] 160-4.5 00 times Medical mcg/actuati daily. Branch on inhaler EPINEPHrine 2021-0 Yes ADMINISTER [facility] 0.3 mg/0.3 4-26 0.3 ML IN ity of mL 00:00: THE MUSCLE [place] injection 00 1 TIME NOW Medi lula FOR 1 DOSE Branch budesonide- 0 Yes [id number] 2{puff} Inhale 2 [facility] formoteroL 4-26 Puffs 2 ity of (SYMBICORT) 00:00: (two) [place] 160-4.5 00 times Medical mcg/actuati daily. Branch on inhaler EPINEPHrine Yes ADMINISTER [facility] 0.3 mg/0.3 4-26 0.3 ML IN ity of mL 00:00: THE MUSCLE [place] injection 00 1 TIME NOW Medi lula FOR 1 DOSE Branch budesonide- 0 Yes [id number] 2{puff} Inhale 2 [facility] formoteroL 4-26 Puffs 2 ity of (SYMBICORT) 00:00: (two) [place] 160-4.5 00 times Medical mcg/actuati daily. Branch on inhaler EPINEPHrine Yes ADMINISTER [facility] 0.3 mg/0.3 4-26 0.3 ML IN ity of mL 00:00: THE MUSCLE [place] injection 00 1 TIME NOW Medi lula FOR 1 DOSE Branch budesonide- Yes [id number] 2{puff} Inhale 2 [facility] formoteroL 4-26 Puffs 2 ity of (SYMBICORT) 00:00: (two) [place] 160-4.5 00 times Medical mcg/actuati daily. Branch on inhaler EPINEPHrine Yes ADMINISTER [facility] 0.3 mg/0.3 4-26 0.3 ML IN ity of mL 00:00: THE MUSCLE [place] injection 00 1 TIME NOW Medi lula FOR 1 DOSE Branch budesonide- 0 Yes [id number] 2{puff} Inhale 2 [facility] formoteroL 4-26 Puffs 2 ity of (SYMBICORT) 00:00: (two) [place] 160-4.5 00 times Medical mcg/actuati daily. Branch on inhaler EPINEPHrine 0 Yes ADMINISTER [facility] 0.3 mg/0.3 4-26 0.3 ML IN ity of mL 00:00: THE MUSCLE [place] injection 00 1 TIME NOW Medi lula FOR 1 DOSE Branch budesonide- 0 Yes [id number] 2{puff} Inhale 2 [facility] formoteroL 4-26 Puffs 2 ity of (SYMBICORT) 00:00: (two) [place] 160-4.5 00 times Medical mcg/actuati daily. Branch on inhaler EPINEPHrine Yes ADMINISTER [facility] 0.3 mg/0.3 4-26 0.3 ML IN ity of mL 00:00: THE MUSCLE [place] injection 00 1 TIME NOW Medi lula FOR 1 DOSE Branch budesonide- Yes [id number] 2{puff} Inhale 2 [facility] formoteroL 4-26 Puffs 2 ity of (SYMBICORT) 00:00: (two) [place] 160-4.5 00 times Medical mcg/actuati daily. Branch on inhaler EPINEPHrine Yes ADMINISTER [facility] 0.3 mg/0.3 4-26 0.3 ML IN ity of mL 00:00: THE MUSCLE [place] injection 00 1 TIME NOW Medi ulla FOR 1 DOSE Branch budesonide- Yes [id number] 2{puff} Inhale 2 [facility] formoteroL 4-26 Puffs 2 ity of (SYMBICORT) 00:00: (two) [place] 160-4.5 00 times Medical mcg/actuati daily. Branch on inhaler EPINEPHrine Yes ADMINISTER [facility] 0.3 mg/0.3 4-26 0.3 ML IN ity of mL 00:00: THE MUSCLE [place] injection 00 1 TIME NOW Medi lula FOR 1 DOSE Branch fluticasone 2023- No [id number] 1{spray Use 1 [facility] propionate 4-26 04-21 } [place] in ity of 50 00:00: 00:00 each [place] mcg/actuati 00 :00 nostril 2 Med ical on nasal (two) Branch spray times daily. buprenorphi Yes APPLY 1 [facility] vers ne 20 4-19 PATCH ON ity of mcg/hour 00:00: THE SKIN [place] PTWK 00 EVERY Medical WEEK. Branch buprenorphi 2021-0 Yes APPLY 1 [facility] vers ne 20 4-19 PATCH ON ity of mcg/hour 00:00: THE SKIN [place] PTWK 00 EVERY Medical WEEK. Branch buprenorphi 2021- Yes APPLY 1 [facility] vers ne 20 4-19 PATCH ON ity of mcg/hour 00:00: THE SKIN [place] PTWK 00 EVERY Medical WEEK. Branch buprenorphi 2021- Yes APPLY 1 [facility] vers ne 20 4-19 PATCH ON ity of mcg/hour 00:00: THE SKIN [place] PTWK 00 EVERY Medical WEEK. Branch buprenorphi 2021-0 Yes APPLY 1 [facility] vers ne 20 4-19 PATCH ON ity of mcg/hour 00:00: THE SKIN [place] PTWK 00 EVERY Medical WEEK. Branch buprenorphi 2021-0 Yes APPLY 1 [facility] vers ne 20 4-19 PATCH ON ity of mcg/hour 00:00: THE SKIN [place] PTWK 00 EVERY Medical WEEK. Branch buprenorphi 2021-0 Yes APPLY 1 [facility] vers ne 20 4-19 PATCH ON ity of mcg/hour 00:00: THE SKIN [place] PTWK 00 EVERY Medical WEEK. Branch buprenorphi 2021-0 Yes APPLY 1 [facility] vers ne 20 4-19 PATCH ON ity of mcg/hour 00:00: THE SKIN [place] PTWK 00 EVERY Medical WEEK. Branch buprenorphi 2021-0 Yes APPLY 1 [facility] vers ne 20 4-19 PATCH ON ity of mcg/hour 00:00: THE SKIN [place] PTWK 00 EVERY Medical WEEK. Branch buprenorphi 2021-0 Yes APPLY 1 [facility] vers ne 20 4-19 PATCH ON ity of mcg/hour 00:00: THE SKIN [place] PTWK 00 EVERY Medical WEEK. Branch buprenorphi 2021-0 Yes APPLY 1 [facility] vers ne 20 4-19 PATCH ON ity of mcg/hour 00:00: THE SKIN [place] PTWK 00 EVERY Medical WEEK. Branch buprenorphi 2021-0 Yes APPLY 1 [facility] vers ne 20 4-19 PATCH ON ity of mcg/hour 00:00: THE SKIN [place] PTWK 00 EVERY Medical WEEK. Branch buprenorphi 2021-0 Yes APPLY 1 [facility] vers ne 20 4-19 PATCH ON ity of mcg/hour 00:00: THE SKIN [place] PTWK 00 EVERY Medical WEEK. Branch buprenorphi 2-0 Yes APPLY 1 [facility] vers ne 20 4-19 PATCH ON ity of mcg/hour 00:00: THE SKIN [place] PTWK 00 EVERY Medical WEEK. Branch buprenorphi 2-0 Yes APPLY 1 [facility] vers ne 20 4-19 PATCH ON ity of mcg/hour 00:00: THE SKIN [place] PTWK 00 EVERY Medical WEEK. Branch buprenorphi 2-0 Yes APPLY 1 [facility] vers ne 20 4-19 PATCH ON ity of mcg/hour 00:00: THE SKIN [place] PTWK 00 EVERY Medical WEEK. Branch buprenorphi 2021-0 Yes APPLY 1 [facility] vers ne 20 4-19 PATCH ON ity of mcg/hour 00:00: THE SKIN [place] PTWK 00 EVERY Medical WEEK. Branch buprenorphi 2021-0 Yes APPLY 1 [facility] vers ne 20 4-19 PATCH ON ity of mcg/hour 00:00: THE SKIN [place] PTWK 00 EVERY Medical WEEK. Branch buprenorphi 2021-0 Yes APPLY 1 [facility] vers ne 20 4-19 PATCH ON ity of mcg/hour 00:00: THE SKIN [place] PTWK 00 EVERY Medical WEEK. Branch buprenorphi 2021-0 Yes APPLY 1 [facility] vers ne 20 4-19 PATCH ON ity of mcg/hour 00:00: THE SKIN [place] PTWK 00 EVERY Medical WEEK. Branch buprenorphi 2-0 Yes APPLY 1 [facility] vers ne 20 4-19 PATCH ON ity of mcg/hour 00:00: THE SKIN [place] PTWK 00 EVERY Medical WEEK. Branch buprenorphi 2021-0 Yes APPLY 1 [facility] vers ne 20 4-19 PATCH ON ity of mcg/hour 00:00: THE SKIN [place] PTWK 00 EVERY Medical WEEK. Branch buprenorphi 2021-0 Yes APPLY 1 [facility] vers ne 20 4-19 PATCH ON ity of mcg/hour 00:00: THE SKIN [place] PTWK 00 EVERY Medical WEEK. Branch buprenorphi 2-0 Yes APPLY 1 [facility] vers ne 20 4-19 PATCH ON ity of mcg/hour 00:00: THE SKIN [place] PTWK 00 EVERY Medical WEEK. Branch buprenorphi 2-0 Yes APPLY 1 [facility] vers ne 20 4-19 PATCH ON ity of mcg/hour 00:00: THE SKIN [place] PTWK 00 EVERY Medical WEEK. Branch buprenorphi 2-0 Yes APPLY 1 [facility] vers ne 20 4-19 PATCH ON ity of mcg/hour 00:00: THE SKIN [place] PTWK 00 EVERY Medical WEEK. Branch buprenorphi 2-0 Yes APPLY 1 [facility] vers ne 20 4-19 PATCH ON ity of mcg/hour 00:00: THE SKIN [place] PTWK 00 EVERY Medical WEEK. Branch buprenorphi 2-0 Yes APPLY 1 [facility] vers ne 20 4-19 PATCH ON ity of mcg/hour 00:00: THE SKIN [place] PTWK 00 EVERY Medical WEEK. Branch buprenorphi 2021-0 Yes APPLY 1 [facility] vers ne 20 4-19 PATCH ON ity of mcg/hour 00:00: THE SKIN [place] PTWK 00 EVERY Medical WEEK. Branch buprenorphi 2021-0 Yes APPLY 1 [facility] vers ne 20 4-19 PATCH ON ity of mcg/hour 00:00: THE SKIN [place] PTWK 00 EVERY Medical WEEK. Branch buprenorphi 2021-0 Yes APPLY 1 [facility] vers ne 20 4-19 PATCH ON ity of mcg/hour 00:00: THE SKIN [place] PTWK 00 EVERY Medical WEEK. Branch buprenorphi 2021-0 Yes APPLY 1 [facility] vers ne 20 4-19 PATCH ON ity of mcg/hour 00:00: THE SKIN [place] PTWK 00 EVERY Medical WEEK. Branch buprenorphi 2021-0 Yes APPLY 1 [facility] vers ne 20 4-19 PATCH ON ity of mcg/hour 00:00: THE SKIN [place] PTWK 00 EVERY Medical WEEK. Branch buprenorphi 2021-0 Yes APPLY 1 [facility] vers ne 20 4-19 PATCH ON ity of mcg/hour 00:00: THE SKIN [place] PTWK 00 EVERY Medical WEEK. Branch buprenorphi 2021-0 Yes APPLY 1 [facility] vers ne 20 4-19 PATCH ON ity of mcg/hour 00:00: THE SKIN [place] PTWK 00 EVERY Medical WEEK. Branch buprenorphi 2021-0 Yes APPLY 1 [facility] vers ne 20 4-19 PATCH ON ity of mcg/hour 00:00: THE SKIN [place] PTWK 00 EVERY Medical WEEK. Branch buprenorphi 2021-0 Yes APPLY 1 [facility] vers ne 20 4-19 PATCH ON ity of mcg/hour 00:00: THE SKIN [place] PTWK 00 EVERY Medical WEEK. Branch buprenorphi 2021-0 Yes APPLY 1 [facility] vers ne 20 4-19 PATCH ON ity of mcg/hour 00:00: THE SKIN [place] PTWK 00 EVERY Medical WEEK. Branch buprenorphi 2021-0 Yes APPLY 1 [facility] vers ne 20 4-19 PATCH ON ity of mcg/hour 00:00: THE SKIN [place] PTWK 00 EVERY Medical WEEK. Branch buprenorphi 2021-0 Yes APPLY 1 [facility] vers ne 20 4-19 PATCH ON ity of mcg/hour 00:00: THE SKIN [place] PTWK 00 EVERY Medical WEEK. Branch buprenorphi 2-0 Yes APPLY 1 [facility] vers ne 20 4-19 PATCH ON ity of mcg/hour 00:00: THE SKIN [place] PTWK 00 EVERY Medical WEEK. Branch buprenorphi 2-0 Yes APPLY 1 [facility] vers ne 20 4-19 PATCH ON ity of mcg/hour 00:00: THE SKIN [place] PTWK 00 EVERY Medical WEEK. Branch buprenorphi 2-0 Yes APPLY 1 [facility] vers ne 20 4-19 PATCH ON ity of mcg/hour 00:00: THE SKIN [place] PTWK 00 EVERY Medical WEEK. Branch buprenorphi 2-0 Yes APPLY 1 [facility] vers ne 20 4-19 PATCH ON ity of mcg/hour 00:00: THE SKIN [place] PTWK 00 EVERY Medical WEEK. Branch buprenorphi 2-0 Yes APPLY 1 [facility] vers ne 20 4-19 PATCH ON ity of mcg/hour 00:00: THE SKIN [place] PTWK 00 EVERY Medical WEEK. Branch buprenorphi 2-0 Yes APPLY 1 [facility] vers ne 20 4-19 PATCH ON ity of mcg/hour 00:00: THE SKIN [place] PTWK 00 EVERY Medical WEEK. Branch buprenorphi 2-0 Yes APPLY 1 [facility] vers ne 20 4-19 PATCH ON ity of mcg/hour 00:00: THE SKIN [place] PTWK 00 EVERY Medical WEEK. Branch buprenorphi 2-0 Yes APPLY 1 [facility] vers ne 20 4-19 PATCH ON ity of mcg/hour 00:00: THE SKIN [place] PTWK 00 EVERY Medical WEEK. Branch buprenorphi 2-0 Yes APPLY 1 [facility] vers ne 20 4-19 PATCH ON ity of mcg/hour 00:00: THE SKIN [place] PTWK 00 EVERY Medical WEEK. Branch buprenorphi 2022-0 Yes APPLY 1 [facility] vers ne 20 4-19 PATCH ON ity of mcg/hour 00:00: THE SKIN [place] PTWK 00 EVERY Medical WEEK. Branch buprenorphi 2-0 Yes APPLY 1 [facility] vers ne 20 4-19 PATCH ON ity of mcg/hour 00:00: THE SKIN [place] PTWK 00 EVERY Medical WEEK. Branch buprenorphi 2022-0 Yes APPLY 1 [facility] vers ne 20 4-19 PATCH ON ity of mcg/hour 00:00: THE SKIN [place] PTWK 00 EVERY Medical WEEK. Branch buprenorphi 2022-0 Yes APPLY 1 [facility] vers ne 20 4-19 PATCH ON ity of mcg/hour 00:00: THE SKIN [place] PTWK 00 EVERY Medical WEEK. Branch buprenorphi 2022-0 Yes APPLY 1 [facility] vers ne 20 4-19 PATCH ON ity of mcg/hour 00:00: THE SKIN [place] PTWK 00 EVERY Medical WEEK. Branch buprenorphi 2022-0 Yes APPLY 1 [facility] vers ne 20 4-19 PATCH ON ity of mcg/hour 00:00: THE SKIN [place] PTWK 00 EVERY Medical WEEK. Branch buprenorphi 2022-0 Yes APPLY 1 [facility] vers ne 20 4-19 PATCH ON ity of mcg/hour 00:00: THE SKIN [place] PTWK 00 EVERY Medical WEEK. Branch buprenorphi 2022-0 Yes APPLY 1 [facility] vers ne 20 4-19 PATCH ON ity of mcg/hour 00:00: THE SKIN [place] PTWK 00 EVERY Medical WEEK. Branch buprenorphi 2022-0 Yes APPLY 1 [facility] vers ne 20 4-19 PATCH ON ity of mcg/hour 00:00: THE SKIN [place] PTWK 00 EVERY Medical WEEK. Branch acetaminoph 2022-0 Yes TAKE 1 [facility] ers en-codeine 4-18 TABLET BY ity of 300-60 mg 00:00: MOUTH [place] tablet 00 EVERY 6 Medical HOURS Branch NEEDED acetaminoph 2022-0 Yes TAKE 1 [facility] ers en-codeine 4-18 TABLET BY ity of 300-60 mg 00:00: MOUTH [place] tablet 00 EVERY 6 Medical HOURS Branch NEEDED acetaminoph 2022-0 Yes TAKE 1 [facility] ers en-codeine 4-18 TABLET BY ity of 300-60 mg 00:00: MOUTH [place] tablet 00 EVERY 6 [facility] HOURS [facility] NEEDED acetaminoph 2022-0 Yes TAKE 1 [facility] en-codeine 4-18 TABLET BY [facility] 300-60 mg 00:00: MOUTH [place] tablet 00 EVERY 6 [facility] HOURS [facility] NEEDED acetaminoph 2022-0 Yes TAKE 1 [facility] en-codeine 4-18 TABLET BY [facility] 300-60 mg 00:00: MOUTH [place] tablet 00 EVERY 6 [facility] HOURS [facility] NEEDED acetaminoph 2022-0 Yes TAKE 1 [facility] en-codeine 4-18 TABLET BY [facility] 300-60 mg 00:00: MOUTH [place] tablet 00 EVERY 6 [facility] HOURS [facility] NEEDED acetaminoph 2022-0 Yes TAKE 1 [facility] en-codeine 4-18 TABLET BY [facility] 300-60 mg 00:00: MOUTH [place] tablet 00 EVERY 6 [facility] HOURS [facility] NEEDED acetaminoph 2022-0 Yes TAKE 1 [facility] en-codeine 4-18 TABLET BY [facility] 300-60 mg 00:00: MOUTH [place] tablet 00 EVERY 6 [facility] HOURS [facility] NEEDED acetaminoph 2022-0 Yes TAKE 1 [facility] en-codeine 4-18 TABLET BY [facility] 300-60 mg 00:00: MOUTH [place] tablet 00 EVERY 6 [facility] HOURS [facility] NEEDED acetaminoph 2022-0 Yes TAKE 1 [facility] en-codeine 4-18 TABLET BY [facility] 300-60 mg 00:00: MOUTH [place] tablet 00 EVERY 6 [facility] HOURS [facility] NEEDED acetaminoph 2022-0 Yes TAKE 1 [facility] en-codeine 4-18 TABLET BY [facility] 300-60 mg 00:00: MOUTH [place] tablet 00 EVERY 6 [facility] HOURS [facility] NEEDED acetaminoph 2022-0 Yes TAKE 1 [facility] en-codeine 4-18 TABLET BY ity of 300-60 mg 00:00: MOUTH [place] tablet 00 EVERY 6 Medical HOURS Branch NEEDED acetaminoph 2022-0 Yes TAKE 1 [facility] en-codeine 4-18 TABLET BY ity of 300-60 mg 00:00: MOUTH [place] tablet 00 EVERY 6 Medical HOURS Branch NEEDED acetaminoph 2022-0 Yes TAKE 1 [facility] en-codeine 4-18 TABLET BY ity of 300-60 mg 00:00: MOUTH [place] tablet 00 EVERY 6 Medical HOURS Branch NEEDED acetaminoph 2022-0 Yes TAKE 1 [facility] en-codeine 4-18 TABLET BY ity of 300-60 mg 00:00: MOUTH [place] tablet 00 EVERY 6 Medical HOURS Branch NEEDED acetaminoph 2022-0 Yes TAKE 1 [facility] en-codeine 4-18 TABLET BY ity of 300-60 mg 00:00: MOUTH [place] tablet 00 EVERY 6 Medical HOURS Branch NEEDED acetaminoph 2022-0 Yes TAKE 1 [facility] en-codeine 4-18 TABLET BY ity of 300-60 mg 00:00: MOUTH [place] tablet 00 EVERY 6 Medical HOURS Branch NEEDED acetaminoph 2022-0 Yes TAKE 1 [facility] en-codeine 4-18 TABLET BY ity of 300-60 mg 00:00: MOUTH [place] tablet 00 EVERY 6 Medical HOURS Branch NEEDED acetaminoph 2022-0 Yes TAKE 1 [facility] en-codeine 4-18 TABLET BY ity of 300-60 mg 00:00: MOUTH [place] tablet 00 EVERY 6 Medical HOURS Branch NEEDED acetaminoph 2022-0 Yes TAKE 1 [facility] en-codeine 4-18 TABLET BY ity of 300-60 mg 00:00: MOUTH [place] tablet 00 EVERY 6 Medical HOURS Branch NEEDED acetaminoph 2022-0 Yes TAKE 1 [facility] en-codeine 4-18 TABLET BY ity of 300-60 mg 00:00: MOUTH [place] tablet 00 EVERY 6 Medical HOURS Branch NEEDED acetaminoph 2022-0 Yes TAKE 1 [facility] en-codeine 4-18 TABLET BY ity of 300-60 mg 00:00: MOUTH [place] tablet 00 EVERY 6 Medical HOURS Branch NEEDED acetaminoph 2022-0 Yes TAKE 1 [facility] en-codeine 4-18 TABLET BY ity of 300-60 mg 00:00: MOUTH [place] tablet 00 EVERY 6 Medical HOURS Branch NEEDED acetaminoph 2022-0 Yes TAKE 1 [facility] en-codeine 4-18 TABLET BY ity of 300-60 mg 00:00: MOUTH [place] tablet 00 EVERY 6 Medical HOURS Branch NEEDED acetaminoph 2022-0 Yes TAKE 1 [facility] en-codeine 4-18 TABLET BY ity of 300-60 mg 00:00: MOUTH [place] tablet 00 EVERY 6 Medical HOURS Branch NEEDED acetaminoph 2022-0 Yes TAKE 1 [facility] en-codeine 4-18 TABLET BY ity of 300-60 mg 00:00: MOUTH [place] tablet 00 EVERY 6 Medical HOURS Branch NEEDED acetaminoph 2022-0 Yes TAKE 1 [facility] en-codeine 4-18 TABLET BY ity of 300-60 mg 00:00: MOUTH [place] tablet 00 EVERY 6 Medical HOURS Branch NEEDED acetaminoph 2022-0 Yes TAKE 1 [facility] en-codeine 4-18 TABLET BY ity of 300-60 mg 00:00: MOUTH [place] tablet 00 EVERY 6 Medical HOURS Branch NEEDED acetaminoph 2022-0 Yes TAKE 1 [facility] en-codeine 4-18 TABLET BY ity of 300-60 mg 00:00: MOUTH [place] tablet 00 EVERY 6 Medical HOURS Branch NEEDED acetaminoph 2022-0 Yes TAKE 1 [facility] en-codeine 4-18 TABLET BY ity of 300-60 mg 00:00: MOUTH [place] tablet 00 EVERY 6 [facility] HOURS Branch NEEDED acetaminoph 2022-0 Yes TAKE 1 [facility] en-codeine 4-18 TABLET BY ity of 300-60 mg 00:00: MOUTH [place] tablet 00 EVERY 6 Medical HOURS Branch NEEDED acetaminoph 2022-0 Yes TAKE 1 [facility] en-codeine 4-18 TABLET BY ity of 300-60 mg 00:00: MOUTH [place] tablet 00 EVERY 6 Medical HOURS Branch NEEDED acetaminoph 2022-0 Yes TAKE 1 [facility] en-codeine 4-18 TABLET BY ity of 300-60 mg 00:00: MOUTH [place] tablet 00 EVERY 6 Medical HOURS Branch NEEDED acetaminoph 2022-0 Yes TAKE 1 [facility] en-codeine 4-18 TABLET BY ity of 300-60 mg 00:00: MOUTH [place] tablet 00 EVERY 6 Medical HOURS Branch NEEDED acetaminoph 2022-0 Yes TAKE 1 [facility] en-codeine 4-18 TABLET BY ity of 300-60 mg 00:00: MOUTH [place] tablet 00 EVERY 6 Medical HOURS Branch NEEDED acetaminoph 2022-0 Yes TAKE 1 [facility] en-codeine 4-18 TABLET BY ity of 300-60 mg 00:00: MOUTH [place] tablet 00 EVERY 6 Medical HOURS Branch NEEDED acetaminoph 2022-0 Yes TAKE 1 [facility] en-codeine 4-18 TABLET BY ity of 300-60 mg 00:00: MOUTH [place] tablet 00 EVERY 6 Medical HOURS Branch NEEDED acetaminoph 2022-0 Yes TAKE 1 [facility] en-codeine 4-18 TABLET BY ity of 300-60 mg 00:00: MOUTH [place] tablet 00 EVERY 6 [facility] HOURS Branch NEEDED acetaminoph 2022-0 Yes TAKE 1 [facility] en-codeine 4-18 TABLET BY ity of 300-60 mg 00:00: MOUTH [place] tablet 00 EVERY 6 [facility] HOURS Branch NEEDED acetaminoph 2022-0 Yes TAKE 1 [facility] en-codeine 4-18 TABLET BY ity of 300-60 mg 00:00: MOUTH [place] tablet 00 EVERY 6 [facility] HOURS Branch NEEDED acetaminoph 2022-0 Yes TAKE 1 [facility] en-codeine 4-18 TABLET BY ity of 300-60 mg 00:00: MOUTH [place] tablet 00 EVERY 6 [facility] HOURS Branch NEEDED acetaminoph 2022-0 Yes TAKE 1 [facility] en-codeine 4-18 TABLET BY ity of 300-60 mg 00:00: MOUTH [place] tablet 00 EVERY 6 [facility] HOURS Branch NEEDED acetaminoph 2022-0 Yes TAKE 1 [facility] en-codeine 4-18 TABLET BY ity of 300-60 mg 00:00: MOUTH [place] tablet 00 EVERY 6 [facility] HOURS Branch NEEDED acetaminoph 2022-0 Yes TAKE 1 [facility] en-codeine 4-18 TABLET BY ity of 300-60 mg 00:00: MOUTH [place] tablet 00 EVERY 6 [facility] HOURS Branch NEEDED acetaminoph 2022-0 Yes TAKE 1 [facility] en-codeine 4-18 TABLET BY ity of 300-60 mg 00:00: MOUTH [place] tablet 00 EVERY 6 [facility] HOURS Branch NEEDED acetaminoph 2022-0 Yes TAKE 1 [facility] en-codeine 4-18 TABLET BY ity of 300-60 mg 00:00: MOUTH [place] tablet 00 EVERY 6 [facility] HOURS Branch NEEDED acetaminoph 2022-0 Yes TAKE 1 [facility] en-codeine 4-18 TABLET BY ity of 300-60 mg 00:00: MOUTH [place] tablet 00 EVERY 6 [facility] HOURS Branch NEEDED acetaminoph 2022-0 Yes TAKE 1 [facility] en-codeine 4-18 TABLET BY ity of 300-60 mg 00:00: MOUTH [place] tablet 00 EVERY 6 [facility] HOURS Branch NEEDED acetaminoph 2022-0 Yes TAKE 1 [facility] en-codeine 4-18 TABLET BY ity of 300-60 mg 00:00: MOUTH [place] tablet 00 EVERY 6 [facility] HOURS Branch NEEDED acetaminoph 2022-0 Yes TAKE 1 [facility] en-codeine 4-18 TABLET BY ity of 300-60 mg 00:00: MOUTH [place] tablet 00 EVERY 6 Medical HOURS Branch NEEDED acetaminoph 2022-0 Yes TAKE 1 [facility] en-codeine 4-18 TABLET BY ity of 300-60 mg 00:00: MOUTH [place] tablet 00 EVERY 6 Medical HOURS Branch NEEDED acetaminoph 2022-0 Yes TAKE 1 [facility] en-codeine 4-18 TABLET BY ity of 300-60 mg 00:00: MOUTH [place] tablet 00 EVERY 6 Medical HOURS Branch NEEDED acetaminoph 2022-0 Yes TAKE 1 [facility] en-codeine 4-18 TABLET BY ity of 300-60 mg 00:00: MOUTH [place] tablet 00 EVERY 6 Medical HOURS Branch NEEDED acetaminoph 2022-0 Yes TAKE 1 [facility] en-codeine 4-18 TABLET BY ity of 300-60 mg 00:00: MOUTH [place] tablet 00 EVERY 6 Medical HOURS Branch NEEDED acetaminoph 2022-0 Yes TAKE 1 [facility] en-codeine 4-18 TABLET BY ity of 300-60 mg 00:00: MOUTH [place] tablet 00 EVERY 6 Medical HOURS Branch NEEDED acetaminoph 2022-0 Yes TAKE 1 [facility] en-codeine 4-18 TABLET BY ity of 300-60 mg 00:00: MOUTH [place] tablet 00 EVERY 6 Medical HOURS Branch NEEDED acetaminoph 2022-0 Yes TAKE 1 [facility] en-codeine 4-18 TABLET BY ity of 300-60 mg 00:00: MOUTH [place] tablet 00 EVERY 6 Medical HOURS Branch NEEDED acetaminoph 2022-0 Yes TAKE 1 [facility] en-codeine 4-18 TABLET BY ity of 300-60 mg 00:00: MOUTH [place] tablet 00 EVERY 6 Medical HOURS Branch NEEDED losartan 25 Yes 25mg Take 25 mg [facility] mg tablet 4-11 by mouth ity of 13:05: daily. [address] losartan 25 Yes 25mg Take 25 mg [facility] mg tablet 4-11 by mouth ity of 13:05: daily. [address] losartan 25 0 Yes 25mg Take 25 mg [facility] mg tablet 4-11 by mouth ity of 13:05: daily. [address] losartan 25 0 Yes 25mg Take 25 mg [facility] mg tablet 4-11 by mouth ity of 13:05: daily. [address] losartan 25 0 Yes 25mg Take 25 mg [facility] mg tablet 4-11 by mouth ity of 13:05: daily. [address] losartan 25 0 Yes 25mg Take 25 mg [facility] mg tablet 4-11 by mouth ity of 13:05: daily. [address] losartan 25 0 Yes 25mg Take 25 mg [facility] mg tablet 4-11 by mouth ity of 13:05: daily. [address] losartan 25 Yes 25mg Take 25 mg [facility] mg tablet 4-11 by mouth ity of 13:05: daily. [address] losartan 25 Yes 25mg Take 25 mg [facility] mg tablet 4-11 by mouth ity of 13:05: daily. [address] losartan 25 Yes 25mg Take 25 mg [facility] mg tablet 4-11 by mouth ity of 13:05: daily. [address] losartan 25 Yes 25mg Take 25 mg [facility] mg tablet 4-11 by mouth ity of 13:05: daily. [address] losartan 25 Yes 25mg Take 25 mg [facility] mg tablet 4-11 by mouth ity of 13:05: daily. [address] losartan 25 Yes 25mg Take 25 mg [facility] mg tablet 4-11 by mouth ity of 13:05: daily. [address] losartan 25 Yes 25mg Take 25 mg [facility] mg tablet 4-11 by mouth ity of 13:05: daily. [address] losartan 25 Yes 25mg Take 25 mg [facility] mg tablet 4-11 by mouth ity of 13:05: daily. [address] losartan 25 Yes 25mg Take 25 mg [facility] mg tablet 4-11 by mouth ity of 13:05: daily. [address] losartan 25 Yes 25mg Take 25 mg [facility] mg tablet 4-11 by mouth ity of 13:05: daily. [address] losartan 25 Yes 25mg Take 25 mg [facility] mg tablet 4-11 by mouth ity of 13:05: daily. [address] losartan 25 Yes 25mg Take 25 mg [facility] mg tablet 4-11 by mouth ity of 13:05: daily. [address] losartan 25 0 Yes 25mg Take 25 mg [facility] mg tablet 4-11 by mouth ity of 13:05: daily. [address] losartan 25 0 Yes 25mg Take 25 mg [facility] mg tablet 4-11 by mouth ity of 13:05: daily. [address] ACCU-CHEK Yes Univers SOFTCLIX 4-07 ity of LANCETS 00:00: [place] [facility] 00 [facility] Branch ACCU-CHEK 2022-0 Yes [facility] SOFTCLIX 4-07 ity of LANCETS 00:00: [facility] 00 Medical Branch ACCU-CHEK 2022-0 Yes [facility] SOFTCLIX 4-07 ity of LANCETS 00:00: [facility] 00 Medical Branch ACCU-CHEK 2022-0 Yes [facility] SOFTCLIX 4-07 ity of LANCETS 00:00: [facility] 00 Medical Branch ACCU-CHEK 2022-0 Yes [facility] SOFTCLIX 4-07 ity of LANCETS 00:00: [facility] 00 Medical Branch ACCU-CHEK 2022-0 Yes [facility] SOFTCLIX 4-07 ity of LANCETS 00:00: [facility] 00 Medical Branch ACCU-CHEK 2022-0 Yes [facility] SOFTCLIX 4-07 ity of LANCETS 00:00: [facility] 00 Medical Branch ACCU-CHEK 2022-0 Yes [facility] SOFTCLIX 4-07 ity of LANCETS 00:00: [facility] 00 Medical Branch ACCU-CHEK 2022-0 Yes [facility] SOFTCLIX 4-07 ity of LANCETS 00:00: [facility] 00 Medical Branch ACCU-CHEK 2022-0 Yes [facility] SOFTCLIX 4-07 ity of LANCETS 00:00: [facility] 00 Medical Branch ACCU-CHEK 2022-0 Yes Univers SOFTCLIX 4-07 ity of LANCETS 00:00: [facility] 00 Medical Branch ACCU-CHEK 2022-0 Yes [facility] SOFTCLIX 4-07 ity of LANCETS 00:00: [facility] 00 Medical Branch ACCU-CHEK 2022-0 Yes [facility] SOFTCLIX 4-07 ity of LANCETS 00:00: [facility] 00 Medical Branch ACCU-CHEK 2022-0 Yes Univers SOFTCLIX 4-07 ity of LANCETS 00:00: [facility] 00 Medical Branch ACCU-CHEK 2022-0 Yes Univers SOFTCLIX 4-07 ity of LANCETS 00:00: [facility] 00 Medical Branch ACCU-CHEK 2022-0 Yes Univers SOFTCLIX 4-07 ity of LANCETS 00:00: [facility] 00 Medical Branch ACCU-CHEK 2022-0 Yes Univers SOFTCLIX 4-07 ity of LANCETS 00:00: [facility] 00 Medical Branch ACCU-CHEK 2022-0 Yes Univers SOFTCLIX 4-07 ity of LANCETS 00:00: [facility] 00 Medical Branch ACCU-CHEK 2022-0 Yes Univers SOFTCLIX 4-07 ity of LANCETS 00:00: [facility] 00 Medical Branch ACCU-CHEK 2022-0 Yes [facility] SOFTCLIX 4-07 ity of LANCETS 00:00: [facility] 00 Medical Branch ACCU-CHEK 2022-0 Yes Univers SOFTCLIX 4-07 ity of LANCETS 00:00: [facility] 00 Medical Branch ACCU-CHEK 2022-0 Yes [facility] SOFTCLIX 4-07 ity of LANCETS 00:00: [facility] 00 Medical Branch ACCU-CHEK 2022-0 Yes Univers SOFTCLIX 4-07 ity of LANCETS 00:00: [facility] 00 Medical Branch ACCU-CHEK 2022-0 Yes Univers SOFTCLIX 4-07 ity of LANCETS 00:00: [facility] 00 Medical Branch ACCU-CHEK 2022-0 Yes [facility] SOFTCLIX 4-07 ity of LANCETS 00:00: [facility] 00 Medical Branch ACCU-CHEK 2022-0 Yes [facility] SOFTCLIX 4-07 ity of LANCETS 00:00: [facility] 00 Medical Branch ACCU-CHEK 2022-0 Yes [facility] SOFTCLIX 4-07 ity of LANCETS 00:00: [facility] 00 Medical Branch ACCU-CHEK 2022-0 Yes [facility] SOFTCLIX 4-07 ity of LANCETS 00:00: [facility] 00 Medical Branch ACCU-CHEK 2022-0 Yes [facility] SOFTCLIX 4-07 ity of LANCETS 00:00: [facility] 00 Medical Branch ACCU-CHEK 2022-0 Yes [facility] SOFTCLIX 4-07 ity of LANCETS 00:00: [facility] 00 Medical Branch ACCU-CHEK 2022-0 Yes [facility] SOFTCLIX 4-07 ity of LANCETS 00:00: [facility] 00 Medical Branch ACCU-CHEK 2022-0 Yes [facility] SOFTCLIX 4-07 ity of LANCETS 00:00: [facility] 00 Medical Branch ACCU-CHEK 2022-0 Yes [facility] SOFTCLIX 4-07 ity of LANCETS 00:00: [facility] 00 Medical Branch ACCU-CHEK 2022-0 Yes [facility] SOFTCLIX 4-07 ity of LANCETS 00:00: [facility] 00 Medical Branch ACCU-CHEK 2022-0 Yes Univers SOFTCLIX 4-07 ity of LANCETS 00:00: [facility] 00 Medical Branch ACCU-CHEK 2022-0 Yes [facility] SOFTCLIX 4-07 ity of LANCETS 00:00: [facility] 00 Medical Branch ACCU-CHEK 2022-0 Yes Univers SOFTCLIX 4-07 ity of LANCETS 00:00: [facility] 00 Medical Branch ACCU-CHEK 2022-0 Yes Univers SOFTCLIX 4-07 ity of LANCETS 00:00: [facility] 00 Medical Branch ACCU-CHEK 2022-0 Yes Univers SOFTCLIX 4-07 ity of LANCETS 00:00: [place] [address] Medical Branch ACCU-CHEK 2022-0 Yes Univers SOFTCLIX 4-07 ity of LANCETS 00:00: [facility] 00 Medical Branch ACCU-CHEK 2022-0 Yes Univers SOFTCLIX 4-07 ity of LANCETS 00:00: [facility] 00 Medical Branch ACCU-CHEK 2022-0 Yes Univers SOFTCLIX 4-07 ity of LANCETS 00:00: [facility] 00 Medical Branch ACCU-CHEK 2022-0 Yes [facility] SOFTCLIX 4-07 ity of LANCETS 00:00: [facility] 00 Medical Branch ACCU-CHEK 2022-0 Yes [facility] SOFTCLIX 4-07 ity of LANCETS 00:00: [facility] 00 Medical Branch ACCU-CHEK 2022-0 Yes [facility] SOFTCLIX 4-07 ity of LANCETS 00:00: [facility] 00 Medical Branch ACCU-CHEK 2022-0 Yes [facility] SOFTCLIX 4-07 ity of LANCETS 00:00: [facility] 00 Medical Branch ACCU-CHEK 2022-0 Yes [facility] SOFTCLIX 4-07 ity of LANCETS 00:00: [facility] 00 Medical Branch ACCU-CHEK 2022-0 Yes [facility] SOFTCLIX 4-07 ity of LANCETS 00:00: [facility] 00 Medical Branch ACCU-CHEK 2022-0 Yes [facility] SOFTCLIX 4-07 ity of LANCETS 00:00: [facility] 00 Medical Branch ACCU-CHEK 2022-0 Yes [facility] SOFTCLIX 4-07 ity of LANCETS 00:00: [facility] 00 Medical Branch ACCU-CHEK 2022-0 Yes [facility] SOFTCLIX 4-07 ity of LANCETS 00:00: [facility] 00 Medical Branch ACCU-CHEK 2022-0 Yes Univers SOFTCLIX 4-07 ity of LANCETS 00:00: [facility] 00 Medical Branch ACCU-CHEK 2022-0 Yes [facility] SOFTCLIX 4-07 ity of LANCETS 00:00: [facility] 00 Medical Branch ACCU-CHEK 2022-0 Yes [facility] SOFTCLIX 4-07 ity of LANCETS 00:00: [facility] 00 Medical Branch ACCU-CHEK 2022-0 Yes [facility] SOFTCLIX 4-07 ity of LANCETS 00:00: [facility] 00 Medical Branch ACCU-CHEK 2022-0 Yes Univers SOFTCLIX 4-07 ity of LANCETS 00:00: [facility] 00 Medical Branch ACCU-CHEK 2022-0 Yes [facility] SOFTCLIX 4-07 ity of LANCETS 00:00: [facility] 00 Medical Branch ACCU-CHEK 2022-0 Yes [facility] SOFTCLIX 4-07 ity of LANCETS 00:00: [facility] 00 Medical Branch blood sugar 2022-0 Yes [id number] Use as [facility] diagnostic 4-02 directed ity o f (ACCU-CHEK 00:00: [place] SMARTVIEW 00 Medical TEST STRIP) Branch strip blood sugar 2-0 Yes [id number] Use as [facility] diagnostic 4-02 directed ity o f (ACCU-CHEK 00:00: [place] SMARTVIEW 00 Medical TEST STRIP) Branch strip blood sugar 2022-0 Yes [id number] Use as [facility] diagnostic 4-02 directed ity o f (ACCU-CHEK 00:00: [place] SMARTVIEW 00 Medical TEST STRIP) Branch strip blood sugar 2022-0 Yes [id number] Use as [facility] diagnostic 4-02 directed ity o f (ACCU-CHEK 00:00: [place] SMARTVIEW 00 Medical TEST STRIP) Branch strip blood sugar 202-0 Yes [id number] Use as [facility] diagnostic 4-02 directed ity o f (ACCU-CHEK 00:00: [place] SMARTVIEW 00 Medical TEST STRIP) Branch strip blood sugar 2021-0 Yes [id number] Use as [facility] diagnostic 4-02 directed ity o f (ACCU-CHEK 00:00: [place] SMARTVIEW 00 Medical TEST STRIP) Branch strip blood sugar 2021-0 Yes [id number] Use as [facility] diagnostic 4- directed ity o f (ACCU-CHEK 00:00: [place] SMARTVIEW 00 Medical TEST STRIP) Branch strip blood sugar 2021-0 Yes [id number] Use as [facility] diagnostic 4- directed ity o f (ACCU-CHEK 00:00: [place] SMARTVIEW 00 Medical TEST STRIP) Branch strip blood sugar 2021-0 Yes [id number] Use as [facility] diagnostic 4- directed ity o f (ACCU-CHEK 00:00: [place] SMARTVIEW 00 Medical TEST STRIP) Branch strip blood sugar 2021-0 Yes [id number] Use as [facility] diagnostic 4- directed ity o f (ACCU-CHEK 00:00: [place] SMARTVIEW 00 Medical TEST STRIP) Branch strip blood sugar 2021-0 Yes [id number] Use as [facility] diagnostic 4- directed ity o f (ACCU-CHEK 00:00: [place] SMARTVIEW 00 Medical TEST STRIP) Branch strip blood sugar 2021-0 Yes [id number] Use as [facility] diagnostic 4- directed ity o f (ACCU-CHEK 00:00: [place] SMARTVIEW 00 Medical TEST STRIP) Branch strip blood sugar 2021-0 Yes [id number] Use as [facility] diagnostic 4-02 directed ity o f (ACCU-CHEK 00:00: [place] SMARTVIEW 00 Medical TEST STRIP) Branch strip blood sugar 2021-0 Yes [id number] Use as [facility] diagnostic 4-02 directed ity o f (ACCU-CHEK 00:00: [place] SMARTVIEW 00 Medical TEST STRIP) Branch strip blood sugar 2-0 Yes [id number] Use as [facility] diagnostic 4-02 directed ity o f (ACCU-CHEK 00:00: [place] SMARTVIEW 00 Medical TEST STRIP) Branch strip blood sugar 2022-0 Yes [id number] Use as [facility] diagnostic 4-02 directed ity o f (ACCU-CHEK 00:00: [place] SMARTVIEW 00 Medical TEST STRIP) Branch strip blood sugar 2021-0 Yes [id number] Use as [facility] diagnostic 4-02 directed ity o f (ACCU-CHEK 00:00: [place] SMARTVIEW 00 Medical TEST STRIP) Branch strip blood sugar 2022-0 Yes [id number] Use as [facility] diagnostic 4-02 directed ity o f (ACCU-CHEK 00:00: [place] SMARTVIEW 00 Medical TEST STRIP) Branch strip blood sugar 2021-0 Yes [id number] Use as [facility] diagnostic 4-02 directed ity o f (ACCU-CHEK 00:00: [place] SMARTVIEW 00 Medical TEST STRIP) Branch strip blood sugar 2021-0 Yes [id number] Use as [facility] diagnostic 4- directed ity o f (ACCU-CHEK 00:00: [place] SMARTVIEW 00 Medical TEST STRIP) Branch strip blood sugar 2021-0 Yes [id number] Use as [facility] diagnostic 4- directed ity o f (ACCU-CHEK 00:00: [place] SMARTVIEW 00 Medical TEST STRIP) Branch strip blood sugar 2021-0 Yes [id number] Use as [facility] diagnostic 4- directed ity o f (ACCU-CHEK 00:00: [place] SMARTVIEW 00 Medical TEST STRIP) Branch strip blood sugar 2021-0 Yes [id number] Use as [facility] diagnostic 4- directed ity o f (ACCU-CHEK 00:00: [place] SMARTVIEW 00 Medical TEST STRIP) Branch strip blood sugar 2-0 Yes [id number] Use as [facility] diagnostic 4- directed ity o f (ACCU-CHEK 00:00: [place] SMARTVIEW 00 Medical TEST STRIP) Branch strip blood sugar 2022-0 Yes [id number] Use as [facility] diagnostic 4-02 directed ity o f (ACCU-CHEK 00:00: [place] SMARTVIEW 00 Medical TEST STRIP) Branch strip blood sugar 2022-0 Yes [id number] Use as [facility] diagnostic 4-02 directed ity o f (ACCU-CHEK 00:00: [place] SMARTVIEW 00 Medical TEST STRIP) Branch strip blood sugar 2022-0 Yes [id number] Use as [facility] diagnostic 4-02 directed ity o f (ACCU-CHEK 00:00: [place] SMARTVIEW 00 Medical TEST STRIP) Branch strip blood sugar 2022-0 Yes [id number] Use as [facility] diagnostic 4-02 directed ity o f (ACCU-CHEK 00:00: [place] SMARTVIEW 00 Medical TEST STRIP) Branch strip blood sugar 2022-0 Yes [id number] Use as [facility] diagnostic 4-02 directed ity o f (ACCU-CHEK 00:00: [place] SMARTVIEW 00 Medical TEST STRIP) Branch strip blood sugar 2022-0 Yes [id number] Use as [facility] diagnostic 4- directed ity o f (ACCU-CHEK 00:00: [place] SMARTVIEW 00 Medical TEST STRIP) Branch strip blood sugar 2022-0 Yes [id number] Use as [facility] diagnostic 4- directed ity o f (ACCU-CHEK 00:00: [place] SMARTVIEW 00 Medical TEST STRIP) Branch strip blood sugar 2021-0 Yes [id number] Use as [facility] diagnostic 4- directed ity o f (ACCU-CHEK 00:00: [place] SMARTVIEW 00 Medical TEST STRIP) Branch strip blood sugar 2-0 Yes [id number] Use as [facility] diagnostic 4- directed ity o f (ACCU-CHEK 00:00: [place] SMARTVIEW 00 Medical TEST STRIP) Branch strip blood sugar 2-0 Yes [id number] Use as [facility] diagnostic 4- directed ity o f (ACCU-CHEK 00:00: [place] SMARTVIEW 00 Medical TEST STRIP) Branch strip blood sugar 2-0 Yes [id number] Use as [facility] diagnostic 4- directed ity o f (ACCU-CHEK 00:00: [place] SMARTVIEW 00 Medical TEST STRIP) Branch strip blood sugar 2022-0 Yes [id number] Use as [facility] diagnostic 4- directed ity o f (ACCU-CHEK 00:00: [place] SMARTVIEW 00 Medical TEST STRIP) Branch strip blood sugar 2022-0 Yes [id number] Use as [facility] diagnostic 4-02 directed ity o f (ACCU-CHEK 00:00: [place] SMARTVIEW 00 Medical TEST STRIP) Branch strip blood sugar 2022-0 Yes [id number] Use as [facility] diagnostic 4-02 directed ity o f (ACCU-CHEK 00:00: [place] SMARTVIEW 00 Medical TEST STRIP) Branch strip blood sugar 2022-0 Yes [id number] Use as [facility] diagnostic 4-02 directed ity o f (ACCU-CHEK 00:00: [place] SMARTVIEW 00 Medical TEST STRIP) Branch strip blood sugar 2021-0 Yes [id number] Use as [facility] diagnostic 4-02 directed ity o f (ACCU-CHEK 00:00: [place] SMARTVIEW 00 Medical TEST STRIP) Branch strip blood sugar 2021-0 Yes [id number] Use as [facility] diagnostic 4-02 directed ity o f (ACCU-CHEK 00:00: [place] SMARTVIEW 00 Medical TEST STRIP) Branch strip blood sugar 2021-0 Yes [id number] Use as [facility] diagnostic 4- directed ity o f (ACCU-CHEK 00:00: [place] SMARTVIEW 00 Medical TEST STRIP) Branch strip blood sugar 2021-0 Yes [id number] Use as [facility] diagnostic 4- directed ity o f (ACCU-CHEK 00:00: [place] SMARTVIEW 00 Medical TEST STRIP) Branch strip blood sugar 2021-0 Yes [id number] Use as [facility] diagnostic 4- directed ity o f (ACCU-CHEK 00:00: [place] SMARTVIEW 00 Medical TEST STRIP) Branch strip blood sugar 2021-0 Yes [id number] Use as [facility] diagnostic 4- directed ity o f (ACCU-CHEK 00:00: [place] SMARTVIEW 00 Medical TEST STRIP) Branch strip blood sugar 2021-0 Yes [id number] Use as [facility] diagnostic 4- directed ity o f (ACCU-CHEK 00:00: [place] SMARTVIEW 00 Medical TEST STRIP) Branch strip blood sugar 2021-0 Yes [id number] Use as [facility] diagnostic 4- directed ity o f (ACCU-CHEK 00:00: [place] SMARTVIEW 00 Medical TEST STRIP) Branch strip blood sugar 2021-0 Yes [id number] Use as [facility] diagnostic 4-02 directed ity o f (ACCU-CHEK 00:00: [place] SMARTVIEW 00 Medical TEST STRIP) Branch strip blood sugar 2-0 Yes [id number] Use as [facility] diagnostic 4-02 directed ity o f (ACCU-CHEK 00:00: [place] SMARTVIEW 00 Medical TEST STRIP) Branch strip blood sugar 2022-0 Yes [id number] Use as [facility] diagnostic 4-02 directed ity o f (ACCU-CHEK 00:00: [place] SMARTVIEW 00 Medical TEST STRIP) Branch strip blood sugar 2022-0 Yes [id number] Use as [facility] diagnostic 4-02 directed ity o f (ACCU-CHEK 00:00: [place] SMARTVIEW 00 Medical TEST STRIP) Branch strip blood sugar 2021-0 Yes [id number] Use as [facility] diagnostic 4-02 directed ity o f (ACCU-CHEK 00:00: [place] SMARTVIEW 00 Medical TEST STRIP) Branch strip blood sugar 2021-0 Yes [id number] Use as [facility] diagnostic 4-02 directed ity o f (ACCU-CHEK 00:00: [place] SMARTVIEW 00 Medical TEST STRIP) Branch strip blood sugar 2021-0 Yes [id number] Use as [facility] diagnostic 4-02 directed ity o f (ACCU-CHEK 00:00: [place] SMARTVIEW 00 Medical TEST STRIP) Branch strip blood sugar 2021-0 Yes [id number] Use as [facility] diagnostic 4- directed ity o f (ACCU-CHEK 00:00: [place] SMARTVIEW 00 Medical TEST STRIP) Branch strip blood sugar 2021-0 Yes [id number] Use as [facility] diagnostic 4- directed ity o f (ACCU-CHEK 00:00: [place] SMARTVIEW 00 Medical TEST STRIP) Branch strip blood sugar 2021-0 Yes [id number] [facility] as [facility] diagnostic 4-02 directed ity o f (ACCU-CHEK 00:00: [place] SMARTVIEW 00 Medical TEST STRIP) Branch strip blood sugar 2021-0 Yes [id number] Use as [facility] diagnostic 4-02 directed ity o f (ACCU-CHEK 00:00: [place] SMARTVIEW 00 Medical TEST STRIP) Branch strip rosuvastati 2021-0 Yes [id number] 5mg Take 1 [facility] n 5 mg 3-23 tablet by ity of tablet 00:00: mouth [place] 00 daily. Medical Branch rosuvastati 2021-0 Yes [id number] 5mg Take 1 [facility] n 5 mg 3-23 tablet by ity of tablet 00:00: mouth [place] 00 daily. Medical Branch rosuvastati 2021-0 Yes [id number] 5mg Take 1 [facility] n 5 mg 3-23 tablet by ity of tablet 00:00: mouth [place] 00 daily. Medical Branch rosuvastati 2021-0 Yes [id number] 5mg Take 1 [facility] n 5 mg 3-23 tablet by ity of tablet 00:00: mouth [place] 00 daily. Medical Branch rosuvastati 0 Yes [id number] 5mg Take 1 [facility] n 5 mg 3-23 tablet by ity of tablet 00:00: mouth [place] 00 daily. [facility] Branch rosuvastati Yes [id number] 5mg Take 1 [facility] n 5 mg 3-23 tablet by ity of tablet 00:00: mouth [place] 00 daily. [facility] Branch rosuvastati Yes [id number] 5mg Take 1 [facility] n 5 mg 3-23 tablet by ity of tablet 00:00: mouth [place] 00 daily. [facility] Branch rosuvastati Yes [id number] 5mg Take 1 [facility] n 5 mg 3-23 tablet by ity of tablet 00:00: mouth [place] 00 daily. [facility] Branch rosuvastati Yes [id number] 5mg Take 1 [facility] n 5 mg 3-23 tablet by ity of tablet 00:00: mouth [place] 00 daily. [facility] Branch rosuvastati Yes [id number] 5mg Take 1 [facility] n 5 mg 3-23 tablet by ity of tablet 00:00: mouth [place] 00 daily. [facility] Branch rosuvastati Yes [id number] 5mg Take 1 [facility] n 5 mg 3-23 tablet by ity of tablet 00:00: mouth [place] 00 daily. [facility] Branch rosuvastati Yes [id number] 5mg Take 1 [facility] n 5 mg 3-23 tablet by ity of tablet 00:00: mouth [place] 00 daily. [facility] Branch rosuvastati Yes [id number] 5mg Take 1 [facility] n 5 mg 3-23 tablet by ity of tablet 00:00: mouth [place] 00 daily. [facility] Branch rosuvastati Yes [id number] 5mg Take 1 [facility] n 5 mg 3-23 tablet by ity of tablet 00:00: mouth [place] 00 daily. [facility] Branch rosuvastati Yes [id number] 5mg Take 1 [facility] n 5 mg 3-23 tablet by ity of tablet 00:00: mouth [place] 00 daily. [facility] Branch rosuvastati Yes [id number] 5mg Take 1 [facility] n 5 mg 3-23 tablet by ity of tablet 00:00: mouth [place] 00 daily. [facility] Branch rosuvastati Yes [id number] 5mg Take 1 [facility] n 5 mg 3-23 tablet by ity of tablet 00:00: mouth [place] 00 daily. [facility] rosuvastati Yes [id number] 5mg Take 1 [facility] n 5 mg 3-23 tablet by ity of tablet 00:00: mouth [place] 00 daily. [facility] Branch rosuvastati Yes [id number] 5mg Take 1 [facility] n 5 mg 3-23 tablet by ity of tablet 00:00: mouth [place] 00 daily. [facility] rosuvastati Yes [id number] 5mg Take 1 [facility] n 5 mg 3-23 tablet by ity of tablet 00:00: mouth [place] 00 daily. [facility] Branch rosuvastati Yes [id number] 5mg Take 1 [facility] n 5 mg 3-23 tablet by ity of tablet 00:00: mouth [place] 00 daily. [facility] rosuvastati Yes [id number] 5mg Take 1 [facility] n 5 mg 3-23 tablet by ity of tablet 00:00: mouth [place] 00 daily. [facility] Branch rosuvastati Yes [id number] 5mg Take 1 [facility] n 5 mg 3-23 tablet by ity of tablet 00:00: mouth [place] 00 daily. [facility] rosuvastati Yes [id number] 5mg Take 1 [facility] n 5 mg 3-23 tablet by ity of tablet 00:00: mouth [place] 00 daily. [facility] rosuvastati Yes [id number] 5mg Take 1 [facility] n 5 mg 3-23 tablet by ity of tablet 00:00: mouth [place] 00 daily. [facility] Branch rosuvastati Yes [id number] 5mg Take 1 [facility] n 5 mg 3-23 tablet by ity of tablet 00:00: mouth [place] 00 daily. [facility] rosuvastati Yes [id number] 5mg Take 1 [facility] n 5 mg 3-23 tablet by ity of tablet 00:00: mouth [place] 00 daily. [facility] Branch rosuvastati Yes [id number] 5mg Take 1 [facility] n 5 mg 3-23 tablet by ity of tablet 00:00: mouth [place] 00 daily. [facility] rosuvastati Yes [id number] 5mg Take 1 [facility] n 5 mg 3-23 tablet by ity of tablet 00:00: mouth [place] 00 daily. [facility] rosuvastati Yes [id number] 5mg Take 1 [facility] n 5 mg 3-23 tablet by ity of tablet 00:00: mouth [place] 00 daily. [facility] Branch rosuvastati Yes [id number] 5mg Take 1 [facility] n 5 mg 3-23 tablet by ity of tablet 00:00: mouth [place] 00 daily. [facility] Branch rosuvastati Yes [id number] 5mg Take 1 [facility] n 5 mg 3-23 tablet by ity of tablet 00:00: mouth [place] 00 daily. [facility] Branch rosuvastati Yes [id number] 5mg Take 1 [facility] n 5 mg 3-23 tablet by ity of tablet 00:00: mouth [place] 00 daily. [facility] Branch rosuvastati Yes [id number] 5mg Take 1 [facility] n 5 mg 3-23 tablet by ity of tablet 00:00: mouth [place] 00 daily. [facility] Branch rosuvastati Yes [id number] 5mg Take 1 [facility] n 5 mg 3-23 tablet by ity of tablet 00:00: mouth [place] 00 daily. [facility] Branch rosuvastati Yes [id number] 5mg Take 1 [facility] n 5 mg 3-23 tablet by ity of tablet 00:00: mouth [place] 00 daily. [facility] Branch rosuvastati Yes [id number] 5mg Take 1 [facility] n 5 mg 3-23 tablet by ity of tablet 00:00: mouth [place] 00 daily. [facility] Branch rosuvastati Yes [id number] 5mg Take 1 [facility] n 5 mg 3-23 tablet by ity of tablet 00:00: mouth [place] 00 daily. [facility] Branch rosuvastati Yes [id number] 5mg Take 1 [facility] n 5 mg 3-23 tablet by ity of tablet 00:00: mouth [place] 00 daily. [facility] Branch rosuvastati Yes [id number] 5mg Take 1 [facility] n 5 mg 3-23 tablet by ity of tablet 00:00: mouth [place] 00 daily. [facility] Branch rosuvastati Yes [id number] 5mg Take 1 [facility] n 5 mg 3-23 tablet by ity of tablet 00:00: mouth [place] 00 daily. [facility] Branch rosuvastati Yes [id number] 5mg Take 1 [facility] n 5 mg 3-23 tablet by ity of tablet 00:00: mouth [place] 00 daily. [facility] rosuvastati Yes [id number] 5mg Take 1 [facility] n 5 mg 3-23 tablet by ity of tablet 00:00: mouth [place] 00 daily. [facility] Branch rosuvastati Yes [id number] 5mg Take 1 [facility] n 5 mg 3-23 tablet by ity of tablet 00:00: mouth [place] 00 daily. [facility] rosuvastati Yes [id number] 5mg Take 1 [facility] n 5 mg 3-23 tablet by ity of tablet 00:00: mouth [place] 00 daily. [facility] Branch rosuvastati Yes [id number] 5mg Take 1 [facility] n 5 mg 3-23 tablet by ity of tablet 00:00: mouth [place] 00 daily. [facility] rosuvastati Yes [id number] 5mg Take 1 [facility] n 5 mg 3-23 tablet by ity of tablet 00:00: mouth [place] 00 daily. [facility] Branch rosuvastati Yes [id number] 5mg Take 1 [facility] n 5 mg 3-23 tablet by ity of tablet 00:00: mouth [place] 00 daily. [facility] rosuvastati Yes [id number] 5mg Take 1 [facility] n 5 mg 3-23 tablet by ity of tablet 00:00: mouth [place] 00 daily. [facility] rosuvastati Yes [id number] 5mg Take 1 [facility] n 5 mg 3-23 tablet by ity of tablet 00:00: mouth [place] 00 daily. [facility] Branch rosuvastati Yes [id number] 5mg Take 1 [facility] n 5 mg 3-23 tablet by ity of tablet 00:00: mouth [place] 00 daily. [facility] rosuvastati Yes [id number] 5mg Take 1 [facility] n 5 mg 3-23 tablet by ity of tablet 00:00: mouth [place] 00 daily. [facility] Branch rosuvastati Yes [id number] 5mg Take 1 [facility] n 5 mg 3-23 tablet by ity of tablet 00:00: mouth [place] 00 daily. [facility] rosuvastati Yes [id number] 5mg Take 1 [facility] n 5 mg 3-23 tablet by ity of tablet 00:00: mouth [place] 00 daily. [facility] rosuvastati Yes [id number] 5mg Take 1 [facility] n 5 mg 3-23 tablet by ity of tablet 00:00: mouth daily. Medical Branch rosuvastati 2-0 Yes [id number] 5mg Take 1 [facility] n 5 mg 3-23 tablet by ity of tablet 00:00: mouth [place] daily. Medical Branch rosuvastati 2-0 Yes [id number] 5mg Take 1 [facility] n 5 mg 3-23 tablet by ity of tablet 00:00: mouth [place] daily. Medical Branch rosuvastati 2-0 Yes [id number] 5mg Take 1 [facility] n 5 mg 3-23 tablet by ity of tablet 00:00: mouth 00 daily. Medical Branch pantoprazol 2021-0 Yes 40mg Take 40 mg [facility] e 40 mg EC 3-18 by mouth ity o f tablet 00:00: daily. Medical Branch ondansetron 2021-0 Yes TAKE 1 [facility] ers 4 mg tablet 3-18 TABLET BY ity of 00:00: MOUTH [place] EVERY 12 Medical HOURS Branch NEEDED dicyclomine 2021-0 Yes 20mg Take 20 mg [facility] 20 mg 3-18 by mouth 4 ity of tablet 00:00: (four) [place] 00 times Medical daily. Branch pantoprazol 2021-0 Yes 40mg Take 40 mg [facility] e 40 mg EC 3-18 by mouth ity o f tablet 00:00: daily. Medical Branch ondansetron 2021-0 Yes TAKE 1 [facility] ers 4 mg tablet 3-18 TABLET BY ity of 00:00: MOUTH [place] EVERY 12 Medical HOURS Branch NEEDED dicyclomine 2021-0 Yes 20mg Take 20 mg [facility] 20 mg 3-18 by mouth 4 ity of tablet 00:00: (four) [place] 00 times Medical daily. Branch pantoprazol 2021-0 Yes 40mg Take 40 mg [facility] e 40 mg EC 3-18 by mouth ity o f tablet 00:00: daily. Medical Branch ondansetron 2021-0 Yes TAKE 1 [facility] ers 4 mg tablet 3-18 TABLET BY ity of 00:00: MOUTH [place] EVERY 12 Medical HOURS Branch NEEDED dicyclomine 2-0 Yes 20mg Take 20 mg [facility] 20 mg 3-18 by mouth 4 ity of tablet 00:00: (four) [place] 00 times Medical daily. Branch pantoprazol 2-0 Yes 40mg Take 40 mg [facility] e 40 mg EC 3-18 by mouth ity o f tablet 00:00: daily. Medical Branch ondansetron 2-0 Yes TAKE 1 [facility] ers 4 mg tablet 3-18 TABLET BY ity of 00:00: MOUTH [place] EVERY 12 Medical HOURS Branch NEEDED dicyclomine 2-0 Yes 20mg Take 20 mg [facility] 20 mg 3-18 by mouth 4 ity of tablet 00:00: (four) [place] 00 times Medical daily. Branch pantoprazol 2-0 Yes 40mg Take 40 mg [facility] e 40 mg EC 3-18 by mouth ity o f tablet 00:00: daily. [place] Medical Branch ondansetron 2021-0 Yes TAKE 1 [facility] ers 4 mg tablet 3-18 TABLET BY ity of 00:00: MOUTH [place] EVERY 12 Medical HOURS Branch NEEDED dicyclomine 2-0 Yes 20mg Take 20 mg [facility] 20 mg 3-18 by mouth 4 ity of tablet 00:00: (four) [place] 00 times Medical daily. Branch pantoprazol 2-0 Yes 40mg Take 40 mg [facility] e 40 mg EC 3-18 by mouth ity o f tablet 00:00: daily. [place] Medical Branch ondansetron 2-0 Yes TAKE 1 [facility] ers 4 mg tablet 3-18 TABLET BY ity of 00:00: MOUTH [place] EVERY 12 Medical HOURS Branch NEEDED dicyclomine 2-0 Yes 20mg Take 20 mg [facility] 20 mg 3-18 by mouth 4 ity of tablet 00:00: (four) [place] times Medical daily. Branch pantoprazol 2-0 Yes 40mg Take 40 mg [facility] e 40 mg EC 3-18 by mouth ity o f tablet 00:00: daily. [place] Medical Branch ondansetron 2-0 Yes TAKE 1 [facility] ers 4 mg tablet 3-18 TABLET BY ity of 00:00: MOUTH [place] EVERY 12 Medical HOURS Branch NEEDED dicyclomine 2-0 Yes 20mg Take 20 mg [facility] 20 mg 3-18 by mouth 4 ity of tablet 00:00: (four) [place] 00 times Medical daily. Branch pantoprazol 2-0 Yes 40mg Take 40 mg [facility] e 40 mg EC 3-18 by mouth ity o f tablet 00:00: daily. [place] 00 Medical Branch ondansetron 2022-0 Yes TAKE 1 [facility] ers 4 mg tablet 3-18 TABLET BY ity of 00:00: MOUTH [place] 00 EVERY 12 Medical HOURS Branch NEEDED dicyclomine 2-0 Yes 20mg Take 20 mg [facility] 20 mg 3-18 by mouth 4 ity of tablet 00:00: (four) [place] 00 times Medical daily. Branch pantoprazol 2021-0 Yes 40mg Take 40 mg [facility] e 40 mg EC 3-18 by mouth ity o f tablet 00:00: daily. [place] 00 Medical Branch ondansetron 2021-0 Yes TAKE 1 [facility] ers 4 mg tablet 3-18 TABLET BY ity of 00:00: MOUTH [place] 00 EVERY 12 Medical HOURS Branch NEEDED dicyclomine 2021-0 Yes 20mg Take 20 mg [facility] 20 mg 3-18 by mouth 4 ity of tablet 00:00: (four) [place] 00 times Medical daily. Branch pantoprazol 2021-0 Yes 40mg Take 40 mg [facility] e 40 mg EC 3-18 by mouth ity o f tablet 00:00: daily. [place] [address] Medical Branch ondansetron 2021-0 Yes TAKE 1 [facility] ers 4 mg tablet 3-18 TABLET BY ity of 00:00: MOUTH [place] 00 EVERY 12 Medical HOURS Branch NEEDED dicyclomine 2021-0 Yes 20mg Take 20 mg [facility] 20 mg 3-18 by mouth 4 ity of tablet 00:00: (four) [place] 00 times Medical daily. Branch pantoprazol 2021-0 2021- No 40mg Take 40 mg [facility] e 40 mg EC 07-28 by mouth ity of tablet 00:00: 00:00 daily. [place] 00 :00 Medical Branch ondansetron 2021-0 2021- No TAKE 1 Uni vers 4 mg tablet 07-28 TABLET BY it y of 00:00: 00:00 MOUTH [place] 00 :00 EVERY 12 Medical HOURS Branch NEEDED dicyclomine 2-0 2021- No 20mg Take 20 mg [facility] 20 mg 18 02-02 by mouth 4 ity of tablet 00:00: 00:00 (four) [place] 00 :00 times Medical daily. Branch pantoprazol 2021-0 2021- No 40mg Take 40 mg [facility] e 40 mg EC 18 02-02 by mouth ity of tablet 00:00: 00:00 daily. [place] 00 :00 Medical Branch ondansetron 2021- No TAKE 1 [facility] vers 4 mg tablet 07-28 TABLET BY it y of 00:00: 00:00 MOUTH [place] 00 :00 EVERY 12 Medical HOURS Branch NEEDED dicyclomine 2021- No 20mg Take 20 mg [facility] 20 mg 07-28 by mouth 4 ity of tablet 00:00: 00:00 (four) [place] 00 :00 times Medical daily. Branch montelukast Yes 10mg Take 10 mg [facility] (SINGULAIR) 3-11 by mouth. ity of 10 mg 14:26: [place] tablet 11 Medical Branch montelukast Yes 10mg Take 10 mg Univers (SINGULAIR) 3-11 by mouth. ity of 10 mg 14:26: [place] tablet 11 Medical Branch montelukast Yes 10mg Take 10 mg [facility] (SINGULAIR) 3-11 by mouth. ity of 10 mg 14:26: [place] tablet 11 Medical Branch montelukast Yes 10mg Take 10 mg [facility] (SINGULAIR) 3-11 by mouth. ity of 10 mg 14:26: [place] [facility] 11 [facility] Branch metFORMIN 2021- No [id number] 1000mg Take 1 Univers 1,000 mg 07-14 tablet by ity o f tablet 00:00: 00:00 mouth 2 [place] 00 :00 (two) Medical times Branch daily with meals. cyclobenzap Yes TAKE 1 Univ ers rine [...] 00 TWICE Medical DAILY Branch DIRECTED cyclobenzap Yes TAKE 1 [facility] ers rine 10 mg 2-15 TABLET BY ity of tablet 00:00: MOUTH [place] 00 THREE Medical TIMES Branch DAILY NEEDED FOR SPASMS Diclofenac Yes APPLY 2 Univ ers Sodium 1 % 2-15 GRAMS ity of gel 00:00: TOPICALLY 00 TO THE Medical AFFECTED Branch AREA FOUR TIMES DAILY DIRECTED pregabalin 2022-0 Yes TAKE 1 Unive rs 200 mg 2-15 CAPSULE BY ity of capsule 00:00: MOUTH TWICE Medical DAILY Branch DIRECTED cyclobenzap 2-0 Yes TAKE 1 Univ ers rine 10 mg 2-15 TABLET BY ity of tablet 00:00: MOUTH THREE Medical TIMES Branch DAILY NEEDED FOR SPASMS Diclofenac 2021-0 Yes APPLY 2 Univ ers Sodium 1 % 2-15 GRAMS ity of gel 00:00: TOPICALLY 00 TO THE Medical AFFECTED Branch AREA FOUR TIMES DAILY DIRECTED pregabalin 2-0 Yes TAKE 1 Unive rs 200 mg [...] Branch AREA FOUR TIMES DAILY DIRECTED pregabalin 2-0 Yes TAKE 1 Unive rs 200 mg 2-15 CAPSULE BY ity of capsule 00:00: MOUTH TWICE Medical DAILY Branch DIRECTED cyclobenzap 2-0 Yes TAKE 1 Univ ers rine 10 mg 2-15 TABLET BY ity of tablet 00:00: MOUTH THREE Medical TIMES Branch DAILY NEEDED FOR SPASMS Diclofenac 2-0 Yes APPLY 2 Univ ers Sodium 1 % 2-15 GRAMS ity of gel 00:00: TOPICALLY TO THE Medical AFFECTED Branch AREA FOUR TIMES DAILY DIRECTED pregabalin 2-0 Yes TAKE 1 Unive rs 200 mg 2-15 CAPSULE BY ity of capsule 00:00: MOUTH 00 TWICE Medical DAILY Branch DIRECTED cyclobenzap 2022-0 Yes TAKE 1 Univ ers rine 10 mg 2-15 TABLET BY ity of tablet 00:00: MOUTH 00 THREE Medical TIMES Branch DAILY NEEDED FOR SPASMS Diclofenac 2-0 Yes APPLY 2 Univ ers Sodium 1 % 2-15 GRAMS ity of gel 00:00: TOPICALLY 00 TO THE Medical AFFECTED Branch AREA FOUR TIMES DAILY DIRECTED pregabalin 2022-0 Yes TAKE 1 Unive rs 200 mg 2-15 CAPSULE BY ity of capsule 00:00: MOUTH 00 TWICE Medical DAILY Branch DIRECTED cyclobenzap 2-0 Yes TAKE 1 Univ ers rine 10 [...] 00 TWICE Medical DAILY Branch DIRECTED cyclobenzap 2021-0 Yes TAKE 1 [facility] ers rine 10 mg 2-15 TABLET BY ity of tablet 00:00: MOUTH 00 THREE Medical TIMES Branch DAILY NEEDED FOR SPASMS Diclofenac 2021-0 Yes APPLY 2 Univ ers Sodium 1 % 2-15 GRAMS ity of gel 00:00: TOPICALLY 00 TO THE Medical AFFECTED Branch AREA FOUR TIMES DAILY DIRECTED pregabalin 2-0 Yes TAKE 1 Unive rs 200 mg 2-15 CAPSULE BY ity of capsule 00:00: MOUTH 00 TWICE Medical DAILY Branch DIRECTED cyclobenzap 2-0 Yes TAKE 1 Univ ers rine 10 mg 2-15 TABLET BY ity of tablet 00:00: MOUTH 00 THREE Medical TIMES Branch DAILY NEEDED FOR SPASMS Diclofenac 2-0 Yes APPLY 2 Univ ers Sodium 1 % 2-15 GRAMS ity of gel 00:00: TOPICALLY 00 TO THE Medical AFFECTED Branch AREA FOUR TIMES DAILY DIRECTED pregabalin 2022-0 Yes TAKE 1 Unive rs 200 mg 2-15 CAPSULE BY ity of capsule 00:00: MOUTH 00 TWICE Medical DAILY Branch DIRECTED cyclobenzap 2-0 Yes TAKE 1 Univ ers rine 10 mg 2-15 TABLET BY ity of tablet 00:00: MOUTH 00 THREE Medical TIMES Branch DAILY NEEDED FOR SPASMS Diclofenac 2-0 Yes APPLY 2 Univ ers Sodium 1 [...] MOUTH TWICE Medical DAILY Branch DIRECTED cyclobenzap 2-0 Yes TAKE 1 [facility] ers rine 10 [...] MOUTH TWICE Medical DAILY Branch DIRECTED cyclobenzap 2-0 Yes TAKE 1 [facility] ers rine 10 mg 2-15 TABLET BY ity of tablet 00:00: MOUTH THREE Medical TIMES Branch DAILY NEEDED FOR SPASMS Diclofenac 2-0 Yes APPLY 2 Univ ers Sodium 1 [...] 00 TWICE Medical DAILY Branch DIRECTED cyclobenzap 2-0 Yes TAKE 1 Univ ers rine 10 [...] MOUTH TWICE Medical DAILY Branch DIRECTED cyclobenzap 2-0 Yes TAKE 1 [facility] ers rine 10 mg 2-15 TABLET BY ity of tablet 00:00: MOUTH THREE Medical TIMES Branch DAILY NEEDED FOR SPASMS Diclofenac 2-0 Yes APPLY 2 Univ ers Sodium 1 % 2-15 GRAMS ity of gel 00:00: TOPICALLY 00 TO THE Medical AFFECTED Branch AREA FOUR TIMES DAILY DIRECTED pregabalin 2022-0 Yes TAKE 1 Unive rs 200 mg 2-15 CAPSULE BY ity of capsule 00:00: MOUTH TWICE Medical DAILY Branch DIRECTED cyclobenzap 2-0 Yes TAKE 1 [facility] ers rine 10 mg 2-15 TABLET BY ity of tablet 00:00: MOUTH 00 THREE Medical TIMES Branch DAILY NEEDED FOR SPASMS Diclofenac 2-0 Yes APPLY 2 Univ ers Sodium 1 [...] ity of tablet 00:00: MOUTH [place] 00 THREE Medical TIMES Branch DAILY NEEDED FOR SPASMS Diclofenac 2022-0 Yes APPLY 2 Univ ers Sodium 1 % 2-15 GRAMS ity of gel 00:00: TOPICALLY TO THE Medical AFFECTED Branch AREA FOUR TIMES DAILY DIRECTED pregabalin 2022-0 Yes TAKE 1 Unive rs 200 mg 2-15 CAPSULE BY ity of capsule 00:00: MOUTH TWICE Medical DAILY Branch DIRECTED cyclobenzap 2-0 Yes TAKE 1 Univ ers rine 10 mg 2-15 TABLET BY ity of tablet 00:00: MOUTH THREE Medical TIMES Branch DAILY NEEDED FOR SPASMS Diclofenac 2-0 Yes APPLY 2 Univ ers Sodium 1 % 2-15 GRAMS ity of gel 00:00: TOPICALLY 00 TO THE Medical AFFECTED Branch AREA FOUR TIMES DAILY DIRECTED pregabalin 2022-0 Yes TAKE 1 Un[facility] rs 200 mg 2-15 CAPSULE BY ity of capsule 00:00: MOUTH TWICE Medical DAILY Branch DIRECTED cyclobenzap 2-0 Yes TAKE 1 [facility] ers rine 10 mg 2-15 TABLET BY ity of tablet 00:00: MOUTH THREE Medical TIMES Branch DAILY NEEDED FOR SPASMS Diclofenac 2-0 Yes APPLY 2 Univ ers Sodium 1 % 2-15 GRAMS ity of gel 00:00: TOPICALLY 00 TO THE Medical AFFECTED Branch AREA FOUR TIMES DAILY DIRECTED pregabalin 2022-0 Yes TAKE 1 [facility] rs 200 mg 2-15 CAPSULE BY ity of capsule 00:00: MOUTH TWICE Medical DAILY Branch DIRECTED cyclobenzap 2-0 Yes TAKE 1 [facility] ers rine 10 mg 2-15 TABLET BY ity of tablet 00:00: MOUTH THREE Medical TIMES Branch DAILY NEEDED FOR SPASMS Diclofenac 2-0 Yes APPLY 2 Univ ers Sodium 1 [...] TIMES Branch DAILY NEEDED FOR SPASMS Diclofenac 2-0 Yes APPLY 2 Univ ers Sodium 1 % 2-15 GRAMS ity of gel 00:00: TOPICALLY 00 TO THE Medical AFFECTED Branch AREA FOUR TIMES DAILY DIRECTED pregabalin 2022-0 Yes TAKE 1 [facility] rs 200 mg 2-15 CAPSULE BY ity of capsule 00:00: MOUTH TWICE Medical DAILY Branch DIRECTED cyclobenzap 2-0 Yes TAKE 1 [facility] ers rine 10 mg 2-15 TABLET BY ity of tablet 00:00: MOUTH THREE Medical TIMES Branch DAILY NEEDED FOR SPASMS Diclofenac 2021-0 Yes APPLY 2 Univ ers Sodium 1 % 2-15 GRAMS ity of gel 00:00: TOPICALLY TO THE Medical AFFECTED Branch AREA FOUR TIMES DAILY DIRECTED pregabalin 2-0 Yes TAKE 1 Un[facility] rs 200 mg 2-15 CAPSULE BY ity of capsule 00:00: MOUTH TWICE Medical DAILY Branch DIRECTED cyclobenzap 2022-0 Yes TAKE 1 [facility] ers rine 10 mg 2-15 TABLET BY ity of tablet 00:00: MOUTH THREE Medical TIMES Branch DAILY NEEDED FOR SPASMS Diclofenac 2-0 Yes APPLY 2 Univ ers Sodium 1 [...] 00 TWICE Medical DAILY Branch DIRECTED cyclobenzap 2021-0 Yes TAKE 1 [facility] ers rine 10 mg 2-15 TABLET BY ity of tablet 00:00: MOUTH 00 THREE Medical TIMES Branch DAILY NEEDED FOR SPASMS Diclofenac 2021-0 Yes APPLY 2 Univ ers Sodium 1 % 2-15 GRAMS ity of gel 00:00: TOPICALLY 00 TO THE Medical AFFECTED Branch AREA FOUR TIMES DAILY DIRECTED pregabalin 2-0 Yes TAKE 1 Un[facility] rs 200 mg 2-15 CAPSULE BY ity of capsule 00:00: MOUTH 00 TWICE Medical DAILY Branch DIRECTED cyclobenzap 2021-0 Yes TAKE 1 Univ ers rine 10 mg 2-15 TABLET BY ity of tablet 00:00: MOUTH 00 THREE Medical TIMES Branch DAILY NEEDED FOR SPASMS Diclofenac 2021-0 Yes APPLY 2 Univ ers Sodium 1 % 2-15 GRAMS ity of gel 00:00: TOPICALLY 00 TO THE Medical AFFECTED Branch AREA FOUR TIMES DAILY DIRECTED pregabalin 2-0 Yes TAKE 1 Un[facility] rs 200 mg 2-15 CAPSULE BY ity of capsule 00:00: MOUTH 00 TWICE Medical DAILY Branch DIRECTED cyclobenzap 2-0 Yes TAKE 1 Univ ers rine 10 [...] 00 TWICE Medical DAILY Branch DIRECTED cyclobenzap 2-0 Yes TAKE 1 [facility] ers rine 10 mg 2-15 TABLET BY ity of tablet 00:00: MOUTH 00 THREE Medical TIMES Branch DAILY NEEDED FOR SPASMS Diclofenac 2-0 Yes APPLY 2 Univ ers Sodium 1 % 2-15 GRAMS ity of gel 00:00: TOPICALLY 00 TO THE Medical AFFECTED Branch AREA FOUR TIMES DAILY DIRECTED pregabalin 2022-0 Yes TAKE 1 Unive rs 200 mg 2-15 CAPSULE BY ity of capsule 00:00: MOUTH TWICE Medical DAILY Branch DIRECTED cyclobenzap 2-0 Yes TAKE 1 Univ ers rine 10 [...] MOUTH TWICE Medical DAILY Branch DIRECTED cyclobenzap 2-0 Yes TAKE 1 [facility] ers rine 10 mg 2-15 TABLET BY ity of tablet 00:00: MOUTH THREE Medical TIMES Branch DAILY NEEDED FOR SPASMS Diclofenac 2-0 Yes APPLY 2 Univ ers Sodium 1 [...] TIMES Branch DAILY NEEDED FOR SPASMS Diclofenac 2-0 Yes APPLY 2 Univ ers Sodium 1 % 2-15 GRAMS ity of gel 00:00: TOPICALLY 00 TO THE Medical AFFECTED Branch AREA FOUR TIMES DAILY DIRECTED pregabalin 2022-0 Yes TAKE 1 [facility] rs 200 mg 2-15 CAPSULE BY ity of capsule 00:00: MOUTH TWICE Medical DAILY Branch DIRECTED cyclobenzap 2-0 Yes TAKE 1 Univ ers rine 10 mg 2-15 TABLET BY ity of tablet 00:00: MOUTH THREE Medical TIMES Branch DAILY NEEDED FOR SPASMS Diclofenac 2-0 Yes APPLY 2 Univ ers Sodium 1 % 2-15 GRAMS ity of gel 00:00: TOPICALLY 00 TO THE Medical AFFECTED Branch AREA FOUR TIMES DAILY DIRECTED pregabalin 2022-0 Yes TAKE 1 [facility] rs 200 mg 2-15 CAPSULE BY ity of capsule 00:00: MOUTH TWICE Medical DAILY Branch DIRECTED cyclobenzap 2-0 Yes TAKE 1 [facility] ers rine 10 mg 2-15 TABLET BY ity of tablet 00:00: MOUTH THREE Medical TIMES Branch DAILY NEEDED FOR SPASMS Diclofenac 2-0 Yes APPLY 2 Univ ers Sodium 1 [...] TIMES Branch DAILY NEEDED FOR SPASMS Diclofenac 2-0 Yes APPLY 2 Univ ers Sodium 1 [...] MOUTH TWICE Medical DAILY Branch DIRECTED cyclobenzap 2-0 Yes TAKE 1 [facility] ers rine 10 mg 2-15 TABLET BY ity of tablet 00:00: MOUTH THREE Medical TIMES Branch DAILY NEEDED FOR SPASMS Diclofenac 2-0 Yes APPLY 2 Univ ers Sodium 1 [...] 2-15 GRAMS ity of gel 00:00: TOPICALLY [place] 00 TO THE Medical AFFECTED Branch AREA FOUR TIMES DAILY DIRECTED pregabalin 2022-0 Yes TAKE 1 Un[facility] rs 200 mg 2-15 CAPSULE BY ity of capsule 00:00: MOUTH 00 TWICE Medical DAILY Branch DIRECTED cyclobenzap 2-0 Yes TAKE 1 [facility] ers rine 10 [...] 00 TWICE Medical DAILY Branch DIRECTED cyclobenzap 2-0 Yes TAKE 1 [facility] ers rine 10 mg 2-15 TABLET BY ity of tablet 00:00: MOUTH THREE Medical TIMES Branch DAILY NEEDED FOR SPASMS Diclofenac 2021-0 Yes APPLY 2 Univ ers Sodium 1 % 2-15 GRAMS ity of gel 00:00: TOPICALLY 00 TO THE Medical AFFECTED Branch AREA FOUR TIMES DAILY DIRECTED pregabalin 2-0 Yes TAKE 1 Un[facility] rs 200 mg 2-15 CAPSULE BY ity of capsule 00:00: MOUTH 00 TWICE Medical DAILY Branch DIRECTED cyclobenzap 2-0 Yes TAKE 1 [facility] rine 10 mg 2-15 TABLET BY [facility] tablet 00:00: MOUTH THREE Medical TIMES Branch DAILY NEEDED FOR SPASMS Diclofenac 2-0 Yes APPLY 2 [facility] Sodium 1 [...] TIMES Branch DAILY NEEDED FOR SPASMS Diclofenac 2-0 Yes APPLY 2 [facility] Sodium 1 % 2-15 GRAMS it[facility] of gel 00:00: TOPICALLY 00 TO THE Medical AFFECTED Branch AREA FOUR TIMES DAILY DIRECTED pregabalin 2022-0 Yes TAKE 1 [facility] 200 mg 2-15 CAPSULE BY [facility] of capsule 00:00: MOUTH 00 TWICE Medical DAILY Branch DIRECTED cyclobenzap 2021-0 Yes TAKE 1 [facility] rine 10 mg 2-15 TABLET BY [facility] of tablet 00:00: MOUTH 00 THREE Medical TIMES Branch DAILY NEEDED FOR SPASMS Diclofenac 2021-0 Yes APPLY 2 [facility] Sodium 1 % 2-15 GRAMS it[facility] of gel 00:00: TOPICALLY 00 TO THE Medical AFFECTED Branch AREA FOUR TIMES DAILY DIRECTED pregabalin 2-0 Yes TAKE 1 [facility] 200 mg 2-15 CAPSULE BY [facility] of capsule 00:00: MOUTH 00 TWICE Medical DAILY Branch DIRECTED cyclobenzap 2021-0 Yes TAKE 1 [facility] rine 10 mg 2-15 TABLET BY [facility] of tablet 00:00: MOUTH THREE Medical TIMES Branch DAILY NEEDED FOR SPASMS Diclofenac 2021-0 Yes APPLY 2 [facility] Sodium 1 % 2-15 GRAMS it[facility] of gel 00:00: TOPICALLY TO THE Medical AFFECTED Branch AREA FOUR TIMES DAILY DIRECTED pregabalin 2-0 Yes TAKE 1 [facility] 200 mg 2-15 CAPSULE BY [facility] of capsule 00:00: MOUTH 00 TWICE Medical DAILY Branch DIRECTED cyclobenzap 2021-0 Yes TAKE 1 [facility] rine 10 mg 2-15 TABLET BY [facility] of tablet 00:00: MOUTH 00 THREE Medical TIMES Branch DAILY NEEDED FOR SPASMS Diclofenac 2021-0 Yes APPLY 2 [facility] Sodium 1 % 2-15 GRAMS it[facility] of gel 00:00: TOPICALLY 00 TO THE Medical AFFECTED Branch AREA FOUR TIMES DAILY DIRECTED pregabalin 2-0 Yes TAKE 1 [facility] 200 mg 2-15 CAPSULE BY [facility] of capsule 00:00: MOUTH 00 TWICE Medical DAILY Branch DIRECTED cyclobenzap 2-0 Yes TAKE 1 [facility] rine 10 mg 2-15 TABLET BY [facility] of tablet 00:00: MOUTH 00 THREE Medical TIMES Branch DAILY NEEDED FOR SPASMS Diclofenac 2-0 Yes APPLY 2 [facility] Sodium 1 % 2-15 GRAMS it[facility] of gel 00:00: TOPICALLY 00 TO THE Medical AFFECTED Branch AREA FOUR TIMES DAILY DIRECTED pregabalin 2022-0 Yes TAKE 1 [facility] 200 mg 2-15 CAPSULE BY [facility] of capsule 00:00: MOUTH TWICE Medical DAILY Branch DIRECTED cyclobenzap 2-0 Yes TAKE 1 [facility] rine 10 [...] MOUTH TWICE Medical DAILY Branch DIRECTED cyclobenzap 2-0 Yes TAKE 1 [facility] rine 10 [...] MOUTH TWICE Medical DAILY Branch DIRECTED cyclobenzap 2-0 Yes TAKE 1 [facility] rine 10 mg 2-15 TABLET BY [facility] of tablet 00:00: MOUTH THREE Medical TIMES Branch DAILY NEEDED FOR SPASMS Diclofenac 2-0 Yes APPLY 2 [facility] Sodium 1 [...] ity of tablet 00:00: MOUTH [place] 00 THREE Medical TIMES Branch DAILY NEEDED FOR SPASMS Diclofenac Yes APPLY 2 [facility] Sodium 1 % 2-15 GRAMS ity of gel 00:00: TOPICALLY 00 TO THE Medical AFFECTED Branch AREA FOUR TIMES DAILY DIRECTED pregabalin 0 Yes TAKE 1 [facility] 200 mg 2-15 CAPSULE BY [facility] of capsule 00:00: MOUTH 00 TWICE Medical DAILY Branch DIRECTED cyclobenzap Yes TAKE 1 [facility] rine [...] MOUTH 00 TWICE Medical DAILY Branch DIRECTED albuterol 2018-05 Yes [id number] 2{puff} Inhale 2 [facility] (PROAIR 2-17 Puffs it[facility] of HFA) 90 00:00: every 6 [place] mcg/actuati 00 (six) Medical on inhaler hours as Branc h needed for Wheezing, Shortness of Breath or Chest tightness. albuterol 2018-05 Yes [id number] 2{puff} Inhale 2 [facility] (PROAIR 2-17 Puffs ity of HFA) 90 00:00: every 6 [place] mcg/actuati 00 (six) Medical on inhaler hours as Branc h needed for Wheezing, Shortness of Breath or Chest tightness. albuterol 2018-05 Yes [id number] 2{puff} Inhale 2 [facility] (PROAIR 2-17 Puffs ity of HFA) 90 00:00: every 6 [place] mcg/actuati 00 (six) Medical on inhaler hours as Branc h needed for Wheezing, Shortness of Breath or Chest tightness. albuterol 2018-05 Yes [id number] 2{puff} Inhale 2 [facility] (PROAIR 2-17 Puffs ity of HFA) 90 00:00: every 6 [place] mcg/actuati 00 (six) Medical on inhaler hours as Branc h needed for Wheezing, Shortness of Breath or Chest tightness. albuterol 2018-05 Yes [id number] 2{puff} Inhale 2 [facility] (PROAIR 2-17 Puffs ity of HFA) 90 00:00: every 6 [place] mcg/actuati 00 (six) Medical on inhaler hours as Branc h needed for Wheezing, Shortness of Breath or Chest tightness. albuterol 2018-05 Yes [id number] 2{puff} Inhale 2 [facility] (PROAIR 2-17 Puffs ity of HFA) 90 00:00: every 6 [place] mcg/actuati 00 (six) Medical on inhaler hours as Branc h needed for Wheezing, Shortness of Breath or Chest tightness. albuterol 2018-05 Yes [id number] 2{puff} Inhale 2 [facility] (PROAIR 2-17 Puffs [facility]y of HFA) 90 00:00: every 6 [place] mcg/actuati 00 (six) Medical on inhaler hours as Branc h needed for Wheezing, Shortness of Breath or Chest tightness. albuterol 2018-05 Yes [id number] 2{puff} Inhale 2 [facility] (PROAIR 2-17 Puffs [facility]y of HFA) 90 00:00: every 6 [place] mcg/actuati 00 (six) Medical on inhaler hours as Branc h needed for Wheezing, Shortness of Breath or Chest tightness. albuterol 2018-05 Yes [id number] 2{puff} Inhale 2 [facility] (PROAIR 2-17 Puffs [facility]y of HFA) 90 00:00: every 6 [place] mcg/actuati 00 (six) Medical on inhaler hours as Branc h needed for Wheezing, Shortness of Breath or Chest tightness. albuterol 2018-05 Yes [id number] 2{puff} Inhale 2 [facility] (PROAIR 2-17 Puffs [facility]y of HFA) 90 00:00: every 6 [place] mcg/actuati 00 (six) Medical on inhaler hours as Branc h needed for Wheezing, Shortness of Breath or Chest tightness. albuterol 2018-05 Yes [id number] 2{puff} Inhale 2 [facility] (PROAIR 2-17 Puffs [facility]y of HFA) 90 00:00: every 6 [place] mcg/actuati 00 (six) Medical on inhaler hours as Branc h needed for Wheezing, Shortness of Breath or Chest tightness. albuterol 2018-05 Yes [id number] 2{puff} Inhale 2 [facility] (PROAIR 2-17 Puffs [facility]y of HFA) 90 00:00: every 6 [place] mcg/actuati 00 (six) Medical on inhaler hours as Branc h needed for Wheezing, Shortness of Breath or Chest tightness. albuterol 2018-05 Yes [id number] 2{puff} Inhale 2 [facility] (PROAIR 2-17 Puffs [facility]y of HFA) 90 00:00: every 6 [place] mcg/actuati 00 (six) Medical on inhaler hours as Branc h needed for Wheezing, Shortness of Breath or Chest tightness. albuterol 2018-05 Yes [id number] 2{puff} Inhale 2 [facility] (PROAIR 2-17 Puffs [facility]y of HFA) 90 00:00: every 6 [place] mcg/actuati 00 (six) Medical on inhaler hours as Branc h needed for Wheezing, Shortness of Breath or Chest tightness. albuterol 2018-05 Yes [id number] 2{puff} Inhale 2 [facility] (PROAIR 2-17 Puffs [facility]y of HFA) 90 00:00: every 6 [place] mcg/actuati 00 (six) Medical on inhaler hours as Branc h needed for Wheezing, Shortness of Breath or Chest tightness. albuterol 2018-05 Yes [id number] 2{puff} Inhale 2 [facility] (PROAIR 2-17 Puffs [facility]y of HFA) 90 00:00: every 6 [place] mcg/actuati 00 (six) Medical on inhaler hours as Branc h needed for Wheezing, Shortness of Breath or Chest tightness. albuterol 2018-05 Yes [id number] 2{puff} Inhale 2 [facility] (PROAIR 2-17 Puffs [facility]y of HFA) 90 00:00: every 6 [place] mcg/actuati 00 (six) Medical on inhaler hours as Branc h needed for Wheezing, Shortness of Breath or Chest tightness. albuterol 2018-05 Yes [id number] 2{puff} Inhale 2 [facility] (PROAIR 2-17 Puffs [facility]y of HFA) 90 00:00: every 6 [place] mcg/actuati 00 (six) Medical on inhaler hours as Branc h needed for Wheezing, Shortness of Breath or Chest tightness. albuterol 2018-05 Yes [id number] 2{puff} Inhale 2 [facility] (PROAIR 2-17 Puffs [facility]y of HFA) 90 00:00: every 6 [place] mcg/actuati 00 (six) Medical on inhaler hours as Branc h needed for Wheezing, Shortness of Breath or Chest tightness. albuterol 2018-05 Yes [id number] 2{puff} Inhale 2 [facility] (PROAIR 2-17 Puffs [facility]y of HFA) 90 00:00: every 6 [place] mcg/actuati 00 (six) Medical on inhaler hours as Branc h needed for Wheezing, Shortness of Breath or Chest tightness. albuterol 2018-05- No [id number] 2{puff} Inhale 2 [facility] (PROAIR 2-17 11-22 Puffs [facility] of HFA) 90 00:00: 00:00 every 6 [place] mcg/actuati 00 :00 (six) Medical on inhaler hours as Branc h needed for Wheezing, Shortness of Breath or Chest tightness. albuterol 2018-05- No [id number] 2{puff} Inhale 2 [facility] (PROAIR 2-17 11-22 Puffs [facility]y of HFA) 90 00:00: 00:00 every 6 [place] mcg/actuati 00 :00 (six) Medical on inhaler hours as Branc h needed for Wheezing, Shortness of Breath or Chest tightness. albuterol 2018-05- No [id number] 2{puff} Inhale 2 [facility] (PROAIR 2-17 11-22 Puffs [facility]y of HFA) 90 00:00: 00:00 every 6 [place] mcg/actuati 00 :00 (six) Medical on inhaler hours as Branc h needed for Wheezing, Shortness of Breath or Chest tightness. albuterol 2018-05- No [id number] 2{puff} Inhale 2 [facility] (PROAIR 2-17 11-22 Puffs [facility] of HFA) 90 00:00: 00:00 every 6 [place] mcg/actuati 00 :00 (six) Medical on inhaler hours as Branc h needed for Wheezing, Shortness of Breath or Chest tightness. albuterol 2018-05- No [id number] 2{puff} Inhale 2 [facility] (PROAIR 2-17 11-22 Puffs [facility] of HFA) 90 00:00: 00:00 every 6 [place] mcg/actuati 00 :00 (six) Medical on inhaler hours as Branc h needed for Wheezing, Shortness of Breath or Chest tightness. metFORMIN 2019-0 Yes 1000mg Q.5D Take 1,000 [facility] (GLUCOPHAGE 2-[address] ) 1,000 mg 08:46: mouth 2 [facility] tablet 09 (two) l times a day with meals. sertraline 2019-0 Yes 50mg QD Take 50 mg [facility] (ZOLOFT) 50 2-[address] MG tablet 08:46: daily. [facility] a 09 l traZODone 2019-0 Yes 50mg QD Take 50 mg [facility] (DESYREL) 2-[address] 50 MG 08:46: nightly. [facility]osp[facility] tablet 09 l promethazin 2019-0 Yes 25mg Q6H Take 25 mg [facility] (PHENERGAN) 08:46: every 6 [facility] 25 MG 09 (six) l tablet hours as needed for nausea or vomiting. rosuvastati 2019-0 Yes 10mg QD Take 10 mg [facility] (CRESTOR) 2-[address] 10 MG 08:46: nightly. [facility]osp[facility] tablet 09 l empaglifloz 2019-0 Yes 10mg QD Take 10 mg [facility] (JARDIANCE) 08:46: every [facility] 10 mg 09 morning. l tablet tablet amLODIPine 2019-0 Yes 5mg QD Take 5 mg [facility] (NORVASC) 5 2-[address] mg tablet 08:46: daily. [facility] a 09 l metFORMIN 2019-0 Yes 1000mg Q.5D Take 1,000 [facility] (GLUCOPHAGE 2-[address] ) 1,000 mg 08:46: mouth 2 [facility] tablet 09 (two) l times a day with meals. sertraline 2019-0 Yes 50mg QD Take 50 mg [facility] (ZOLOFT) 50 2-[address] MG tablet 08:46: daily. [facility] a 09 l traZODone 2019-0 Yes 50mg QD Take 50 mg [facility] (DESYREL) 2-[address] 50 MG 08:46: nightly. [facility]osp[facility] tablet 09 l promethazin 2019-0 Yes 25mg Q6H Take 25 mg [facility] 2[facility] (PHENERGAN) 08:46: every 6 [facility] 25 MG 09 (six) l tablet hours as needed for nausea or vomiting. rosuvastati 2019-0 Yes 10mg QD Take 10 mg [facility] (CRESTOR) 2-[address] 10 MG 08:46: nightly. [facility]osp[facility] tablet 09 l empaglifloz 2019-0 Yes 10mg QD Take 10 mg [facility] (JARDIANCE) 08:46: every [facility] 10 mg 09 morning. l tablet tablet amLODIPine 2019-0 Yes 5mg QD Take 5 mg [facility] (NORVASC) 5 2-[address] mg tablet 08:46: daily. [facility] a 09 l metFORMIN 2019-0 Yes 1000mg Q.5D Take 1,000 [facility] (GLUCOPHAGE 2-[address] ) 1,000 mg 08:46: mouth 2 [facility] tablet 09 (two) l times a day with meals. sertraline 2019-0 Yes 50mg QD Take 50 mg [facility] (ZOLOFT) 50 2-[address] MG tablet 08:46: daily. [facility] a 09 l traZODone 2019-0 Yes 50mg QD Take 50 mg [facility] (DESYREL) 2-[address] 50 MG 08:46: nightly. [facility] tablet 09 l promethazin 2019-0 Yes 25mg Q6H Take 25 mg [facility] 2[facility] (PHENERGAN) 08:46: every 6 [facility] 25 MG 09 (six) l tablet hours as needed for nausea or vomiting. rosuvastati 2019-0 Yes 10mg QD Take 10 mg [facility] (CRESTOR) 2-[address] 10 MG 08:46: nightly. [facility] tablet 09 l empaglifloz 2019-0 Yes 10mg QD Take 10 mg [facility] 2-[address] (JARDIANCE) 08:46: every [facility] 10 mg 09 morning. l tablet tablet amLODIPine 2019-0 Yes 5mg QD Take 5 mg [facility] (NORVASC) 5 2-[address] mg tablet 08:46: daily. [facility] a 09 l metFORMIN 2019-0 Yes 1000mg Q.5D Take 1,000 [facility] (GLUCOPHAGE 2-[address] ) 1,000 mg 08:46: mouth 2 [facility] tablet 09 (two) l times a day with meals. sertraline 2019-0 Yes 50mg QD Take 50 mg [facility] (ZOLOFT) 50 2-[address] MG tablet 08:46: daily. [facility] a 09 l traZODone 2019-0 Yes 50mg QD Take 50 mg [facility] (DESYREL) 2-[address] 50 MG 08:46: nightly. [facility] tablet 09 l promethazin 2019-0 Yes 25mg Q6H Take 25 mg [facility] 2[facility] (PHENERGAN) 08:46: every 6 [facility] 25 MG 09 (six) l tablet hours as needed for nausea or vomiting. rosuvastati 2019-0 Yes 10mg QD Take 10 mg [facility] (CRESTOR) 2-[address] 10 MG 08:46: nightly. [facility] tablet 09 l empaglifloz 2019-0 Yes 10mg QD Take 10 mg [facility] 2[facility] (JARDIANCE) 08:46: every [facility] 10 mg 09 morning. l tablet tablet amLODIPine 2019-0 Yes 5mg QD Take 5 mg [facility] (NORVASC) 5 2-[address] mg tablet 08:46: daily. [facility] a 09 l metFORMIN 2019-0 Yes 1000mg Q.5D Take 1,000 [facility] (GLUCOPHAGE 2-[address] ) 1,000 mg 08:46: mouth 2 [facility] tablet 09 (two) l times a day with meals. sertraline 2019-0 Yes 50mg QD Take 50 mg [facility] (ZOLOFT) 50 2-[address] MG tablet 08:46: daily. [facility] a 09 l metFORMIN 2019-0 Yes 1000mg Q.5D Take 1,000 [facility] (GLUCOPHAGE 2-[address] ) 1,000 mg 08:46: mouth 2 [facility] tablet 09 (two) l times a day with meals. sertraline 2019-0 Yes 50mg QD Take 50 mg [facility] (ZOLOFT) 50 2-[address] MG tablet 08:46: daily. [facility] a 09 l traZODone 2019-0 Yes 50mg QD Take 50 mg [facility] (DESYREL) 2-[address] 50 MG 08:46: nightly. [facility] tablet 09 l promethazin 2019-0 Yes 25mg Q6H Take 25 mg [facility] 2[facility] (PHENERGAN) 08:46: every 6 [facility] 25 MG 09 (six) l tablet hours as needed for nausea or vomiting. rosuvastati 2019-0 Yes 10mg QD Take 10 mg [facility] (CRESTOR) 2-[address] 10 MG 08:46: nightly. [facility] tablet 09 l empaglifloz 2019-0 Yes 10mg QD Take 10 mg [facility] 2-[address] (JARDIANCE) 08:46: every [facility] 10 mg 09 morning. l tablet tablet amLODIPine 2019-0 Yes 5mg QD Take 5 mg [facility] (NORVASC) 5 2-[address] mg tablet 08:46: daily. [facility] a 09 l traZODone 2019-0 Yes 50mg QD Take 50 mg [facility] (DESYREL) 2-[address] 50 MG 08:46: nightly. [facility] tablet 09 l promethazin 2019-0 Yes 25mg Q6H Take 25 mg [facility] 2[facility] (PHENERGAN) 08:46: every 6 [facility] 25 MG 09 (six) l tablet hours as needed for nausea or vomiting. rosuvastati 2019-0 Yes 10mg QD Take 10 mg [facility] (CRESTOR) 2-[address] 10 MG 08:46: nightly. [facility] tablet 09 l empaglifloz 2019-0 Yes 10mg QD Take 10 mg [facility] 2[facility] (JARDIANCE) 08:46: every [facility] 10 mg 09 morning. l tablet tablet amLODIPine 2019-0 Yes 5mg QD Take 5 mg [facility] (NORVASC) 5 2-[address] mg tablet 08:46: daily. [facility] a 09 l metFORMIN 2019-0 Yes 1000mg Q.5D Take 1,000 [facility] (GLUCOPHAGE 2-[address] ) 1,000 mg 08:46: mouth 2 [facility] tablet 09 (two) l times a day with meals. sertraline 2019-0 Yes 50mg QD Take 50 mg [facility] (ZOLOFT) 50 2-[address] MG tablet 08:46: daily. [facility] a 09 l traZODone 2019-0 Yes 50mg QD Take 50 mg [facility] (DESYREL) 2-[address] 50 MG 08:46: nightly. [facility] tablet 09 l promethazin 2019-0 Yes 25mg Q6H Take 25 mg [facility] 2[facility] (PHENERGAN) 08:46: every 6 [facility] 25 MG 09 (six) l tablet hours as needed for nausea or vomiting. rosuvastati 2019-0 Yes 10mg QD Take 10 mg [facility] (CRESTOR) 2-[address] 10 MG 08:46: nightly. [facility] tablet 09 l empaglifloz 2019-0 Yes 10mg QD Take 10 mg [facility] (JARDIANCE) 08:46: every [facility] 10 mg 09 morning. l tablet tablet amLODIPine 2019-0 Yes 5mg QD Take 5 mg [facility] (NORVASC) 5 2-[address] mg tablet 08:46: daily. [facility] a 09 l metFORMIN 2019-0 Yes 1000mg Q.5D Take 1,000 [facility] (GLUCOPHAGE 2-[address] ) 1,000 mg 08:46: mouth 2 [facility] tablet 09 (two) l times a day with meals. sertraline 2019-0 Yes 50mg QD Take 50 mg [facility] (ZOLOFT) 50 2-[address] MG tablet 08:46: daily. [facility] a 09 l traZODone 2019-0 Yes 50mg QD Take 50 mg [facility] (DESYREL) 2-[address] 50 MG 08:46: nightly. [facility] tablet 09 l promethazin 2019-0 Yes 25mg Q6H Take 25 mg [facility] 2[facility] (PHENERGAN) 08:46: every 6 [facility] 25 MG 09 (six) l tablet hours as needed for nausea or vomiting. rosuvastati 2019-0 Yes 10mg QD Take 10 mg [facility] (CRESTOR) 2-[address] 10 MG 08:46: nightly. [facility] tablet 09 l empaglifloz 2019-0 Yes 10mg QD Take 10 mg [facility] (JARDIANCE) 08:46: every [facility] 10 mg 09 morning. l tablet tablet amLODIPine 2019-0 Yes 5mg QD Take 5 mg [facility] (NORVASC) 5 2-[address] mg tablet 08:46: daily. [facility] a 09 l metFORMIN 2019-0 Yes 1000mg Q.5D Take 1,000 [facility] (GLUCOPHAGE 2-[address] ) 1,000 mg 08:46: mouth 2 [facility] tablet 09 (two) l times a day with meals. sertraline 2019-0 Yes 50mg QD Take 50 mg [facility] (ZOLOFT) 50 2-[address] MG tablet 08:46: daily. [facility] a 09 l traZODone 2019-0 Yes 50mg QD Take 50 mg [facility] (DESYREL) 2-[address] 50 MG 08:46: nightly. [facility] tablet 09 l promethazin 2019-0 Yes 25mg Q6H Take 25 mg [facility] 2[facility] (PHENERGAN) 08:46: every 6 [facility] 25 MG 09 (six) l tablet hours as needed for nausea or vomiting. rosuvastati 2019-0 Yes 10mg QD Take 10 mg [facility] (CRESTOR) 2-[address] 10 MG 08:46: nightly. [facility] tablet 09 l empaglifloz 2019-0 Yes 10mg QD Take 10 mg [facility] 2-[address] (JARDIANCE) 08:46: every [facility] 10 mg 09 morning. l tablet tablet amLODIPine 2019-0 Yes 5mg QD Take 5 mg [facility] (NORVASC) 5 2-[address] mg tablet 08:46: daily. [facility] a 09 l metFORMIN 2019-0 Yes 1000mg Q.5D Take 1,000 [facility] (GLUCOPHAGE 2-[address] ) 1,000 mg 08:46: mouth 2 [facility] tablet 09 (two) l times a day with meals. sertraline 2019-0 Yes 50mg QD Take 50 mg [facility] (ZOLOFT) 50 2-[address] MG tablet 08:46: daily. [facility] a 09 l traZODone 2019-0 Yes 50mg QD Take 50 mg [facility] (DESYREL) 2-[address] 50 MG 08:46: nightly. [facility] tablet 09 l promethazin 2019-0 Yes 25mg Q6H Take 25 mg [facility] 2[facility] (PHENERGAN) 08:46: every 6 [facility] 25 MG 09 (six) l tablet hours as needed for nausea or vomiting. rosuvastati 2019-0 Yes 10mg QD Take 10 mg [facility] (CRESTOR) 2-[address] 10 MG 08:46: nightly. [facility] tablet 09 l empaglifloz 2019-0 Yes 10mg QD Take 10 mg [facility] (JARDIANCE) 08:46: every [facility] 10 mg 09 morning. l tablet tablet amLODIPine 2019-0 Yes 5mg QD Take 5 mg [facility] (NORVASC) 5 2-[address] mg tablet 08:46: daily. [facility] a 09 l metFORMIN 2019-0 Yes 1000mg Q.5D Take 1,000 [facility] (GLUCOPHAGE 2-[address] ) 1,000 mg 08:46: mouth 2 [facility] tablet 09 (two) l times a day with meals. sertraline 2019-0 Yes 50mg QD Take 50 mg [facility] (ZOLOFT) 50 2-[address] MG tablet 08:46: daily. [facility] a 09 l traZODone 2019-0 Yes 50mg QD Take 50 mg [facility] (DESYREL) 2-[address] 50 MG 08:46: nightly. [facility] tablet 09 l promethazin 2019-0 Yes 25mg Q6H Take 25 mg [facility] 2[facility] (PHENERGAN) 08:46: every 6 [facility] 25 MG 09 (six) l tablet hours as needed for nausea or vomiting. rosuvastati 2019-0 Yes 10mg QD Take 10 mg [facility] (CRESTOR) 2-[address] 10 MG 08:46: nightly. [facility] tablet 09 l empaglifloz 2019-0 Yes 10mg QD Take 10 mg [facility] 2-[address] (JARDIANCE) 08:46: every [facility] 10 mg 09 morning. l tablet tablet amLODIPine 2019-0 Yes 5mg QD Take 5 mg [facility] (NORVASC) 5 2-[address] mg tablet 08:46: daily. [facility] a 09 l metFORMIN 2019-0 Yes 1000mg Q.5D Take 1,000 [facility] (GLUCOPHAGE 2-[address] ) 1,000 mg 08:46: mouth 2 [facility] tablet 09 (two) l times a day with meals. sertraline 2019-0 Yes 50mg QD Take 50 mg [facility] (ZOLOFT) 50 2-[address] MG tablet 08:46: daily. [facility] a 09 l traZODone 2019-0 Yes 50mg QD Take 50 mg [facility] (DESYREL) 2-[address] 50 MG 08:46: nightly. [facility] tablet 09 l promethazin 2019-0 Yes 25mg Q6H Take 25 mg [facility] 2[facility] (PHENERGAN) 08:46: every 6 [facility] 25 MG 09 (six) l tablet hours as needed for nausea or vomiting. rosuvastati 2019-0 Yes 10mg QD Take 10 mg [facility] (CRESTOR) 2-[address] 10 MG 08:46: nightly. [facility] tablet 09 l empaglifloz 2019-0 Yes 10mg QD Take 10 mg [facility] 2-[address] (JARDIANCE) 08:46: every [facility] 10 mg 09 morning. l tablet tablet amLODIPine 2019-0 Yes 5mg QD Take 5 mg [facility] (NORVASC) 5 2-[address] mg tablet 08:46: daily. [facility] a 09 l metFORMIN 2019-0 Yes 1000mg Q.5D Take 1,000 [facility] (GLUCOPHAGE 2-[address] ) 1,000 mg 08:46: mouth 2 [facility] tablet 09 (two) l times a day with meals. sertraline 2019-0 Yes 50mg QD Take 50 mg [facility] (ZOLOFT) 50 2-[address] MG tablet 08:46: daily. [facility] a 09 l traZODone 2019-0 Yes 50mg QD Take 50 mg [facility] (DESYREL) 2-[address] 50 MG 08:46: nightly. [facility] tablet 09 l promethazin 2019-0 Yes 25mg Q6H Take 25 mg [facility] 2[facility] (PHENERGAN) 08:46: every 6 [facility] 25 MG 09 (six) l tablet hours as needed for nausea or vomiting. rosuvastati 0 Yes 10mg QD Take 10 mg [facility] (CRESTOR) 2-[address] 10 MG 08:46: nightly. [facility] tablet 09 l empaglifloz 0 Yes 10mg QD Take 10 mg [facility] 2-[address] (JARDIANCE) 08:46: every [facility] 10 mg 09 morning. l tablet tablet amLODIPine Yes 5mg QD Take 5 mg [facility] (NORVASC) 5 2-[address] mg tablet 08:46: daily. [facility] a 09 l LYRICA 200 Yes 1{tbl} Q.[id number] Take 1 [facility] mg capsule 5-[id number] 00:00: 3D mouth 3 [facility] 00 (three) l times a day. LYRICA 200 Yes 1{tbl} Q.[id number] Take 1 [facility] mg capsule 5-[id number] 00:00: 3D mouth 3 [facility] 00 (three) l times a day. LYRICA 200 Yes 1{tbl} Q.[id number] Take 1 [facility] mg [facility] 5-[id number] 00:00: 3D mouth 3 [facility] 00 (three) l times a day. LYRICA 200 Yes 1{tbl} Q.[id number] Take 1 [facility] mg capsule 5-[id number] 00:00: 3D mouth 3 [facility] 00 (three) l times a day. LYRICA 200 Yes 1{tbl} Q.[id number] Take 1 [facility] 5-[id number] 00:00: 3D mouth 3 [facility] 00 (three) l times a day. LYRICA 200 Yes 1{tbl} Q.[id number] Take 1 [facility] capsule 5-[id number] 00:00: 3D mouth 3 [facility] 00 (three) l times a day. LYRICA 200 Yes 1{tbl} Q.[id number] Take 1 [facility] 5-[id number] 00:00: 3D mouth 3 [facility] 00 (three) l times a day. LYRICA 200 2017- Yes 1{tbl} Q.[id number] Take 1 [facility] mg [facility] 5-[id number] 00:00: 3D mouth 3 [facility] 00 (three) l times a day. LYRICA 200 Yes 1{tbl} Q.[id number] Take 1 [facility] mg [facility] 5-[id number] 00:00: 3D mouth 3 [facility] 00 (three) l times a day. LYRICA 200 Yes 1{tbl} Q.[id number] Take 1 [facility] 5-[id number] 00:00: 3D mouth 3 [facility] 00 (three) l times a day. LYRICA 200 Yes 1{tbl} Q.[id number] Take 1 [facility] 5-[id number] 00:00: 3D mouth 3 [facility] 00 (three) l times a day. LYRICA 200 Yes 1{tbl} Q.[id number] Take 1 [facility] mg [facility] 5-[id number] 00:00: 3D mouth 3 [facility] 00 (three) l times a day. LYRICA 200 Yes 1{tbl} Q.[id number] Take 1 [facility] mg capsule 5-[id number] 00:00: 3D mouth 3 [facility] 00 (three) l times a day. PredniSONE PredniSONE Yes ZHEN TAPER UT 20 MG Oral 20 MG Oral 1-18 KATELYN [facility] Tablet Tablet 00:00: M.D. ns - TAKE ans 00 3 PILLS, BY MOUTH, DAILY X 5 DAYSTHEN 2 PILLS DAILY X 5 DAYSTHEN 1 PILL DAILY X 5 DAYS, UNTIL COMPLETE ACCU-CHEK 2016-05 Yes [facility] GUIDE strip 2-[address] test strips 00:00: [facility] ACCU-CHEK 2016-05 Yes [facility] GUIDE strip 2-[address] test strips 00:00: [facility] 00 l ACCU-CHEK 2016-05 Yes [facility] GUIDE strip 2-[address] test strips 00:00: [facility] 00 [facility] ACCU-CHEK 2016-05 Yes [facility] GUIDE strip 2-[address] test strips 00:00: [facility] 00 l ACCU-CHEK 2016-05 Yes [facility] GUIDE strip 2-[address] test strips 00:00: [facility] 00 [facility] ACCU-CHEK 2016-05 Yes [facility] GUIDE strip 2-[address] test strips 00:00: [facility] 00 l ACCU-CHEK 2016-05 Yes [facility] GUIDE strip 2-[address] test strips 00:00: [facility] 00 l ACCU-CHEK 2016-05 Yes [facility] GUIDE strip 2-[address] test strips 00:00: [facility] 00 [facility] ACCU-CHEK 2016-05 Yes [facility] GUIDE strip 2-[address] test strips 00:00: [facility] 00 l ACCU-CHEK 2016-05 Yes [facility] GUIDE strip 2-[address] test strips 00:00: TID [facility] ACCU-CHEK 2016-05 Yes [facility] GUIDE strip 2-[address] test strips 00:00: [facility] ACCU-CHEK 2016-05 Yes [facility] GUIDE strip 2-[address] test strips 00:00: [facility] ACCU-CHEK 2016-05 Yes [facility] GUIDE strip 2-[address] test strips 00:00: [facility] ACCU-CHEK 2016-05 Yes TK [facility] GUIDE 2-[address] GLUCOSE 00:00: [facility] METER misc 00 l ACCU-CHEK 2016-05 Yes TEST TID Meth craig FASTCLIX 2-04 st misc 00:00: [facility] 00 l ACCU-CHEK 2016-05 Yes TK [facility] GUIDE 2-[address] GLUCOSE 00:00: [facility] METER misc 00 l ACCU-CHEK 2016-05 Yes TEST TID Meth craig FASTCLIX 2-04 [facility] misc 00:00: [facility] 00 l ACCU-CHEK 2016-05 Yes TK [facility] GUIDE 2-[address] GLUCOSE 00:00: [facility] METER misc 00 l ACCU-CHEK 2017-1 Yes TEST TID [facility] craig FASTCLIX 2-04 [facility] misc 00:00: [facility] 00 l ACCU-CHEK 2017-1 Yes TK [facility] GUIDE 2-[address] GLUCOSE 00:00: [facility] METER misc 00 l ACCU-CHEK 2017-1 Yes TEST TID Meth craig FASTCLIX 2-04 [facility] misc 00:00: [facility] 00 l ACCU-CHEK 2017- Yes TK [facility] GUIDE 2-[address] GLUCOSE 00:00: [facility] MET[facility] misc 00 l ACCU-CHEK 2017- Yes TEST TID Meth craig FASTCLIX 2-04 [facility] misc 00:00: [facility] 00 l ACCU-CHEK 2016- Yes TK [facility] GUIDE 2-[address] GLUCOSE 00:00: [facility] METER misc 00 l ACCU-CHEK 2016- Yes TEST TID Meth craig FASTCLIX 2-04 [facility] misc 00:00: [facility] 00 l ACCU-CHEK 2016- Yes TK [facility] GUIDE 2-[address] GLUCOSE 00:00: [facility] METER misc 00 l ACCU-CHEK 2016- Yes TEST TID Meth craig FASTCLIX 2-04 st misc 00:00: [facility] 00 l ACCU-CHEK 2016- Yes TK [facility] GUIDE 2-[address] GLUCOSE 00:00: [facility] METER misc 00 l ACCU-CHEK 2016- Yes TEST TID Meth craig FASTCLIX 2-04 [facility] misc 00:00: [facility] 00 l ACCU-CHEK 2016- Yes TK [facility] GUIDE 2-[address] GLUCOSE 00:00: [facility] METER misc 00 l ACCU-CHEK 2017- Yes TEST TID Meth craig FASTCLIX 2-04 [facility] misc 00:00: [facility] 00 l ACCU-CHEK 2017-1 Yes TK [facility] GUIDE 2-[address] GLUCOSE 00:00: [facility] METER misc 00 l ACCU-CHEK 2017-1 Yes TEST TID Meth craig FASTCLIX 2-04 [facility] misc 00:00: [facility] 00 l ACCU-CHEK 2017- Yes TK [facility] GUIDE 2-[address] GLUCOSE 00:00: [facility] MET[facility] misc 00 l ACCU-CHEK 2016-05 Yes TEST TID Meth craig FASTCLIX 2-04 [facility] misc 00:00: [facility] 00 l ACCU-CHEK 2016-05 Yes TK [facility] GUIDE 2-[address] GLUCOSE 00:00: [facility] METER misc 00 l ACCU-CHEK 2016-05 Yes TEST TID Meth craig FASTCLIX 2-04 [facility] misc 00:00: [facility] 00 l ACCU-CHEK 2016-05 Yes TK [facility] GUIDE 2-[address] GLUCOSE 00:00: [facility] METER misc 00 l ACCU-CHEK 2016-05 Yes TEST TID Meth craig FASTCLIX 2-04 [facility] misc 00:00: [facility] 00 l BD 2016-05 Yes USE BID [facility] ULTRA-FINE 1-[address] LILY PEN 00:00: [facility]ospita NEEDLES 32 00 l gauge x 5/32" needle BD 2016-05 Yes USE BID [facility] ULTRA-FINE 1-[address] LILY PEN 00:00: [facility]ospita NEEDLES 32 00 l gauge x 5/32" needle BD 2016-05 Yes USE BID [facility] ULTRA-FINE 1-[address] LILY PEN 00:00: [facility]osp[facility] NEEDLES 32 00 l gauge x 5/32" needle BD 2016-05 Yes USE BID [facility] ULTRA-FINE 1-[address] LILY PEN 00:00: [facility]ospita NEEDLES 32 00 l gauge x 5/32" needle BD 2016-05 Yes USE BID [facility] ULTRA-FINE 1-[address] LILY PEN 00:00: [facility]ospita NEEDLES 32 00 l gauge x 5/32" needle BD 2016-05 Yes USE BID [facility] ULTRA-FINE 1-[address] LILY PEN 00:00: [facility]ospita NEEDLES 32 00 l gauge x 5/32" needle BD 2016-05 Yes USE BID [facility] ULTRA-FINE 1-[address] LILY PEN 00:00: [facility]ospita NEEDLES 32 00 l gauge x 5/32" needle BD 2016-05 Yes USE BID [facility] ULTRA-FINE 1-[address] LILY PEN 00:00: [facility]ospita NEEDLES 32 00 l gauge x 5/32" needle BD 2016-05 Yes USE BID [facility] ULTRA-FINE 1-[address] LILY PEN 00:00: [facility]ospita NEEDLES 32 00 l gauge x 5/32" needle BD 2016-05 Yes USE BID [facility] ULTRA-FINE 1- UTD st LILY PEN 00:00: Hospita NEEDLES 32 00 l gauge x 5/32" needle BD 2016-05 Yes USE BID [facility] ULTRA-FINE 1- UTD st LILY PEN 00:00: [facility]ospita NEEDLES 32 00 l gauge x 5/32" needle BD 2016-05 Yes USE BID [facility] ULTRA-FINE 1- UTD st LILY PEN 00:00: [facility]ospita NEEDLES 32 00 l gauge x 5/32" needle BD 2016-05 Yes USE BID [facility] ULTRA-FINE 1- UTD st LILY PEN 00:00: Hospita NEEDLES 32 00 l gauge x 5/32" needle PredniSONE PredniSONE 2013-05 Yes RIN Take 3 UT 20 MG Oral 20 MG Oral 0-21 JIE-TIGH tablets PO [facility] Tablet Tablet 00:00: M.D. QAM for 2 ans 00 days, then 2 tablets PO QAM for 3 days, then take 1 tablet PO QAM for 3 days, then take 1/2 tab PO QAM daily Pilocarpine Pilocarpine 2013-05 Yes RIN Q0.3333D TAKE 1 UT HCl - 5 MG HCl - 5 MG 0-11 JIE-TIGH TABLET 3 [facility] Oral Tablet Oral Tablet 00:00: M.D. TIMES ans 00 DAILY. Gabapentin Gabapentin Yes UT 300 MG Oral 300 MG Oral P hysici Capsule Capsule ans MetFORMIN MetFORMIN Yes UT HCl - 500 HCl - [address] MG Oral MG Oral ans Tablet Tablet Lyrica 25 Lyrica 25 Yes UT MG Oral MG Oral Physici Capsule Capsule ans Norvasc 5 Norvasc 5 Yes UT MG Oral MG Oral [facility]ici Tablet Tablet ans Simvastatin Simvastatin Yes U T TABS TABS Physici ans Triamcinolo Triamcinolo Yes U T ne ne Physici [place]ide Acetonide ans CREA CREA Zofran TABS Zofran TABS Yes U T Physici ans Hydrocodone Hydrocodone Yes U T -Acetaminop -Acetaminop P hysici hen TABS hen TABS ans Meclizine Meclizine Yes UT HCl TABS HCl TABS [facility]ici ans Cipro 500 Cipro 500 Yes UT MG Oral MG Oral [facility] Tablet Tablet ans Immunizations Ordered Filled Immunization Date Status Comments Sourc e Immunization Name Name Pneumococcal 20 2022-04-22 Completed [facility] Conjugate, PCV20 00:00:00 [facility] (Prevnar 20) Branch Zoster Vaccine 2022-04-22 Completed [facility] Recombinant 00:00:00 [facility] Pneumococcal 20 2022-04-22 Completed [facility]it [facility] of Conjugate, PCV20 00:00:00 [facility] dical (Prevnar 20) Branch Zoster Vaccine 2022-04-22 Completed [facility] of Recombinant 00:00:00 [facility] Pneumococcal 20 2022-04-22 Completed [facility]it [facility] of Conjugate, PCV20 00:00:00 [facility] dical (Prevnar 20) Branch Zoster Vaccine 2022-04-22 Completed [facility] of Recombinant 00:00:00 [facility] Pneumococcal 20 2022-04-22 Completed [facility]it [facility] of Conjugate, PCV20 00:00:00 [facility] dical (Prevnar 20) Branch Zoster Vaccine 2022-04-22 Completed [facility] of Recombinant 00:00:00 [facility] Pneumococcal 20 2022-04-22 Completed [facility] of Conjugate, PCV20 00:00:00 [facility] dical (Prevnar 20) Branch Zoster Vaccine 2022-04-22 Completed [facility] of Recombinant 00:00:00 [facility] Pneumococcal 20 2022-04-22 Completed [facility] of Conjugate, PCV20 00:00:00 [facility] dical (Prevnar 20) Branch Zoster Vaccine 2022-04-22 Completed [facility] of Recombinant 00:00:00 [facility] Pneumococcal 20 2022-04-22 Completed [facility] of Conjugate, PCV20 00:00:00 [place] [facility] (Prevnar 20) Branch Zoster Vaccine 2022-04-22 Completed [facility] of Recombinant 00:00:00 [facility] Pneumococcal 20 2022-04-22 Completed [facility] of Conjugate, PCV20 00:00:00 [place] [facility] (Prevnar 20) Branch Zoster Vaccine 2022-04-22 Completed [facility] of Recombinant 00:00:00 [facility] Pneumococcal 20 2022-04-22 Completed [facility] of Conjugate, PCV20 00:00:00 [place] [facility] (Prevnar 20) Branch Zoster Vaccine 2022-04-22 Completed [facility] of Recombinant 00:00:00 [facility] Pneumococcal 20 2022-04-22 Completed [facility] of Conjugate, PCV20 00:00:00 [facility] dical (Prevnar 20) Branch Zoster Vaccine 2022-04-22 Completed [facility] of Recombinant 00:00:00 [facility] Pneumococcal 20 2022-04-22 Completed [facility]it y of Conjugate, PCV20 00:00:00 [facility] dical (Prevnar 20) Branch Zoster Vaccine 2022-04-22 Completed [facility] of Recombinant 00:00:00 [facility] Pneumococcal 20 2022-04-22 Completed [facility] y of Conjugate, PCV20 00:00:00 [facility] dical (Prevnar 20) Branch Zoster Vaccine 2022-04-22 Completed [facility] of Recombinant 00:00:00 [facility] Pneumococcal 20 2022-04-22 Completed [facility]it y of Conjugate, PCV20 00:00:00 [facility] dical (Prevnar 20) Branch Zoster Vaccine 2022-04-22 Completed [facility] of Recombinant 00:00:00 [facility] Pneumococcal 20 2022-04-22 Completed [facility] y of Conjugate, PCV20 00:00:00 [facility] dical (Prevnar 20) Branch Zoster Vaccine 2022-04-22 Completed [facility] of Recombinant 00:00:00 [facility] Pneumococcal 20 2022-04-22 Completed [facility]it y of Conjugate, PCV20 00:00:00 [facility] dical (Prevnar 20) Branch Zoster Vaccine 2022-04-22 Completed [facility] of Recombinant 00:00:00 [facility] Pneumococcal 20 2022-04-22 Completed [facility]it y of Conjugate, PCV20 00:00:00 [facility] dical (Prevnar 20) Branch Zoster Vaccine 2022-04-22 Completed [facility] of Recombinant 00:00:00 [facility] Pneumococcal 20 2022-04-22 Completed [facility]it y of Conjugate, PCV20 00:00:00 [facility] dical (Prevnar 20) Branch Zoster Vaccine 2022-04-22 Completed [facility] of Recombinant 00:00:00 [facility] Pneumococcal 20 2022-04-22 Completed [facility]it y of Conjugate, PCV20 00:00:00 [facility] dical (Prevnar 20) Branch Zoster Vaccine 2022-04-22 Completed [facility] of Recombinant 00:00:00 [facility] Pneumococcal 20 2022-04-22 Completed [facility] y of Conjugate, PCV20 00:00:00 [facility] dical (Prevnar 20) Branch Zoster Vaccine 2022-04-22 Completed [facility] of Recombinant 00:00:00 [facility] Pneumococcal 20 2022-04-22 Completed [facility]it y of Conjugate, PCV20 00:00:00 [facility] dical (Prevnar 20) Branch Zoster Vaccine 2022-04-22 Completed [facility] of Recombinant 00:00:00 [facility] Pneumococcal 20 2022-04-22 Completed [facility]it y of Conjugate, PCV20 00:00:00 [facility] dical (Prevnar 20) Branch Zoster Vaccine 2022-04-22 Completed [facility] of Recombinant 00:00:00 [facility] Pneumococcal 20 2022-04-22 Completed [facility]it y of Conjugate, PCV20 00:00:00 [facility] dical (Prevnar 20) Branch Zoster Vaccine 2022-04-22 Completed [facility] of Recombinant 00:00:00 [facility] Pneumococcal 20 2022-04-22 Completed [facility]it y of Conjugate, PCV20 00:00:00 [facility] dical (Prevnar 20) Branch Zoster Vaccine 2022-04-22 Completed [facility] of Recombinant 00:00:00 [facility] Pneumococcal 20 2022-04-22 Completed [facility]it y of Conjugate, PCV20 00:00:00 [facility] dical (Prevnar 20) Branch Zoster Vaccine 2022-04-22 Completed [facility] of Recombinant 00:00:00 [facility] Pneumococcal 20 2022-04-22 Completed [facility]it y of Conjugate, PCV20 00:00:00 [facility] dical (Prevnar 20) Branch Zoster Vaccine 2022-04-22 Completed [facility] of Recombinant 00:00:00 [facility] Pneumococcal 20 2022-04-22 Completed [facility] y of Conjugate, PCV20 00:00:00 [facility] dical (Prevnar 20) Branch Zoster Vaccine 2022-04-22 Completed [facility] of Recombinant 00:00:00 [facility] Pneumococcal 20 2022-04-22 Completed [facility]it y of Conjugate, PCV20 00:00:00 [facility] dical (Prevnar 20) Branch Zoster Vaccine 2022-04-22 Completed [facility] of Recombinant 00:00:00 [facility] Pneumococcal 20 2022-04-22 Completed [facility] y of Conjugate, PCV20 00:00:00 [place] [facility] (Prevnar 20) Branch Zoster Vaccine 2022-04-22 Completed [facility] of Recombinant 00:00:00 [facility] Pneumococcal 20 2022-04-22 Completed [facility]it y of Conjugate, PCV20 00:00:00 [facility] dical (Prevnar 20) Branch Zoster Vaccine 2022-04-22 Completed [facility] of Recombinant 00:00:00 [facility] Pneumococcal 20 2022-04-22 Completed [facility]it y of Conjugate, PCV20 00:00:00 [facility] dical (Prevnar 20) Branch Zoster Vaccine 2022-04-22 Completed [facility] of Recombinant 00:00:00 [facility] Influenza Virus 2022-02-02 Completed [facility]it y of Vaccine Quad IM, 00:00:00 [facility] dical Preserv and ABX Branch Free 6 MO-64 YRS Influenza Virus 2022-02-02 Completed [facility]it y of Vaccine Quad IM, 00:00:00 [facility] dical Preserv and ABX Branch Free 6 MO-64 YRS Influenza Virus 2022-02-02 Completed [facility]it y of Vaccine Quad IM, 00:00:00 [facility] dical Preserv and ABX Branch Free 6 MO-64 YRS Influenza Virus 2022-02-02 Completed [facility]it y of Vaccine Quad IM, 00:00:00 [facility] dical Preserv and ABX Branch Free 6 MO-64 YRS Influenza Virus 2022-02-02 Completed [facility]it y of Vaccine Quad IM, 00:00:00 [facility] dical Preserv and ABX Branch Free 6 MO-64 YRS Influenza Virus 2022-02-02 Completed [facility]it y of Vaccine Quad IM, 00:00:00 [facility] dical Preserv and ABX Branch Free 6 MO-64 YRS Influenza Virus 2022-02-02 Completed [facility]it y of Vaccine Quad IM, 00:00:00 [facility] dical Preserv and ABX Branch Free 6 MO-64 YRS Influenza Virus 2022-02-02 Completed [facility]it y of Vaccine Quad IM, 00:00:00 [place] [facility] Preserv and ABX Branch Free 6 MO-64 YRS Influenza Virus 2022-02-02 Completed [facility] y of Vaccine Quad IM, 00:00:00 [place] [facility] Preserv and ABX Branch Free 6 MO-64 YRS Influenza Virus 2022-02-02 Completed [facility] y of Vaccine Quad IM, 00:00:00 [place] [facility] Preserv and ABX Branch Free 6 MO-64 YRS Influenza Virus 2022-02-02 Completed [facility] y of Vaccine Quad IM, 00:00:00 [place] [facility] Preserv and ABX Branch Free 6 MO-64 YRS Influenza Virus 2022-02-02 Completed [facility] y of Vaccine Quad IM, 00:00:00 [place] [facility] Preserv and ABX Branch Free 6 MO-64 YRS Influenza Virus 2022-02-02 Completed [facility] y of Vaccine Quad IM, 00:00:00 [place] [facility] Preserv and ABX Branch Free 6 MO-64 YRS Influenza Virus 2022-02-02 Completed [facility] y of Vaccine Quad IM, 00:00:00 [place] [facility] Preserv and ABX Branch Free 6 MO-64 YRS Influenza Virus 2022-02-02 Completed [facility] y of Vaccine Quad IM, 00:00:00 [place] [facility] Preserv and ABX Branch Free 6 MO-64 YRS Influenza Virus 2022-02-02 Completed [facility] y of Vaccine Quad IM, 00:00:00 [place] [facility] Preserv and ABX Branch Free 6 MO-64 YRS Influenza Virus 2022-02-02 Completed [facility] y of Vaccine Quad IM, 00:00:00 [place] [facility] Preserv and ABX Branch Free 6 MO-64 YRS Influenza Virus 2022-02-02 Completed [facility] y of Vaccine Quad IM, 00:00:00 [place] [facility] Preserv and ABX Branch Free 6 MO-64 YRS Influenza Virus 2022-02-02 Completed [facility] y of Vaccine Quad IM, 00:00:00 [place] [facility] Preserv and ABX Branch Free 6 MO-64 YRS Influenza Virus 2022-02-02 Completed [facility] y of Vaccine Quad IM, 00:00:00 [place] [facility] Preserv and ABX Branch Free 6 MO-64 YRS Influenza Virus 2022-02-02 Completed [facility] y of Vaccine Quad IM, 00:00:00 [place] [facility] Preserv and ABX Branch Free 6 MO-64 YRS Influenza Virus 2022-02-02 Completed [facility] y of Vaccine Quad IM, 00:00:00 [place] [facility] Preserv and ABX Branch Free 6 MO-64 YRS Influenza Virus 2022-02-02 Completed [facility] y of Vaccine Quad IM, 00:00:00 [place] [facility] Preserv and ABX Branch Free 6 MO-64 YRS Influenza Virus 2022-02-02 Completed [facility] y of Vaccine Quad IM, 00:00:00 [place] [facility] Preserv and ABX Branch Free 6 MO-64 YRS Influenza Virus 2022-02-02 Completed [facility] y of Vaccine Quad IM, 00:00:00 [place] [facility] Preserv and ABX Branch Free 6 MO-64 YRS Influenza Virus 2022-02-02 Completed [facility] y of Vaccine Quad IM, 00:00:00 [place] [facility] Preserv and ABX Branch Free 6 MO-64 YRS Influenza Virus 2022-02-02 Completed [facility] y of Vaccine Quad IM, 00:00:00 [place] [facility] Preserv and ABX Branch Free 6 MO-64 YRS Influenza Virus 2022-02-02 Completed [facility] y of Vaccine Quad IM, 00:00:00 [place] [facility] Preserv and ABX Branch Free 6 MO-64 YRS Influenza Virus 2022-02-02 Completed [facility] y of Vaccine Quad IM, 00:00:00 [place] [facility] Preserv and ABX Branch Free 6 MO-64 YRS Influenza Virus 2022-02-02 Completed [facility] y of Vaccine Quad IM, 00:00:00 [place] [facility] Preserv and ABX Branch Free 6 MO-64 YRS Influenza Virus 2022-02-02 Completed [facility] y of Vaccine Quad IM, 00:00:00 [place] [facility] Preserv and ABX Branch Free 6 MO-64 YRS Influenza Virus 2022-02-02 Completed [facility] y of Vaccine Quad IM, 00:00:00 [place] [facility] Preserv and ABX Branch Free 6 MO-64 YRS Influenza Virus 2022-02-02 Completed [facility] y of Vaccine Quad IM, 00:00:00 [place] [facility] Preserv and ABX Branch Free 6 MO-64 YRS Influenza Virus 2022-02-02 Completed [facility] y of Vaccine Quad IM, 00:00:00 [place] [facility] Preserv and ABX Branch Free 6 MO-64 YRS Influenza Virus 2022-02-02 Completed [facility] y of Vaccine Quad IM, 00:00:00 [place] [facility] Preserv and ABX Branch Free 6 MO-64 YRS Influenza Virus 2022-02-02 Completed [facility] y of Vaccine Quad IM, 00:00:00 [place] [facility] Preserv and ABX Branch Free 6 MO-64 YRS Influenza Virus 2022-02-02 Completed [facility] y of Vaccine Quad IM, 00:00:00 [place] [facility] Preserv and ABX Branch Free 6 MO-64 YRS Influenza Virus 2022-02-02 Completed [facility] y of Vaccine Quad IM, 00:00:00 [place] [facility] Preserv and ABX Branch Free 6 MO-64 YRS Influenza Virus 2022-02-02 Completed [facility] y of Vaccine Quad IM, 00:00:00 [place] [facility] Preserv and ABX Branch Free 6 MO-64 YRS Influenza Virus 2022-02-02 Completed [facility] y of Vaccine Quad IM, 00:00:00 [place] [facility] Preserv and ABX Branch Free 6 MO-64 YRS Influenza Virus 2022-02-02 Completed [facility] y of Vaccine Quad IM, 00:00:00 [place] [facility] Preserv and ABX Branch Free 6 MO-64 YRS Influenza Virus 2022-02-02 Completed [facility] y of Vaccine Quad IM, 00:00:00 [place] [facility] Preserv and ABX Branch Free 6 MO-64 YRS Influenza Virus 2022-02-02 Completed [facility] y of Vaccine Quad IM, 00:00:00 [place] [facility] Preserv and ABX Branch Free 6 MO-64 YRS Influenza Virus 2022-02-02 Completed [facility] y of Vaccine Quad IM, 00:00:00 [place] [facility] Preserv and ABX Branch Free 6 MO-64 YRS Influenza Virus 2022-02-02 Completed [facility] y of Vaccine Quad IM, 00:00:00 [place] [facility] Preserv and ABX Branch Free 6 MO-64 YRS Influenza Virus 2022-02-02 Completed [facility] y of Vaccine Quad IM, 00:00:00 [place] [facility] Preserv and ABX Branch Free 6 MO-64 YRS Influenza Virus 2022-02-02 Completed [facility] y of Vaccine Quad IM, 00:00:00 [place] [facility] Preserv and ABX Branch Free 6 MO-64 YRS Influenza Virus 2022-02-02 Completed [facility] y of Vaccine Quad IM, 00:00:00 [place] [facility] Preserv and ABX Branch Free 6 MO-64 YRS Influenza Virus 2021-04-12 Completed [facility] y of Vaccine 00:00:00 [facility] Influenza Virus 2021-04-12 Completed [facility] y of Vaccine 00:00:00 [facility] Influenza Virus 2021-04-12 Completed [facility] y of Vaccine 00:00:00 [facility] Influenza Virus 2021-04-12 Completed [facility] y of Vaccine 00:00:00 [facility] Influenza Virus 2021-04-12 Completed [facility] y of Vaccine 00:00:00 [facility] Influenza Virus 2021-04-12 Completed [facility] y of Vaccine 00:00:00 [facility] Influenza Virus 2021-04-12 Completed [facility] y of Vaccine 00:00:00 [facility] Influenza Virus 2021-04-12 Completed [facility] y of Vaccine 00:00:00 [facility] Influenza Virus 2021-04-12 Completed [facility] y of Vaccine 00:00:00 [facility] Influenza Virus 2021-04-12 Completed [facility] y of Vaccine 00:00:00 [facility] Influenza Virus 2021-04-12 Completed [facility] y of Vaccine 00:00:00 [facility] Influenza Virus 2021-04-12 Completed [facility] y of Vaccine 00:00:00 [facility] Influenza Virus 2021-04-12 Completed [facility] y of Vaccine 00:00:00 [facility] Influenza Virus 2021-04-12 Completed [facility] y of Vaccine 00:00:00 [facility] Influenza Virus 2021-04-12 Completed [facility] y of Vaccine 00:00:00 [facility] Influenza Virus 2021-04-12 Completed [facility] y of Vaccine 00:00:00 [facility] Influenza Virus 2021-04-12 Completed [facility] y of Vaccine 00:00:00 [facility] Influenza Virus 2021-04-12 Completed [facility] y of Vaccine 00:00:00 [facility] Influenza Virus 2021-04-12 Completed [facility] y of Vaccine 00:00:00 [facility] Influenza Virus 2021-04-12 Completed [facility] y of Vaccine 00:00:00 [facility] Influenza Virus 2021-04-12 Completed [facility] y of Vaccine 00:00:00 [facility] Influenza Virus 2021-04-12 Completed [facility] y of Vaccine 00:00:00 [facility] Influenza Virus 2021-04-12 Completed [facility] y of Vaccine 00:00:00 [facility] Influenza Virus 2021-04-12 Completed [facility] y of Vaccine 00:00:00 [facility] Influenza Virus 2021-04-12 Completed [facility] y of Vaccine 00:00:00 [facility] Influenza Virus 2021-04-12 Completed [facility]it y of Vaccine 00:00:00 [facility] Influenza Virus 2021-04-12 Completed [facility]it y of Vaccine 00:00:00 [facility] Influenza Virus 2021-04-12 Completed [facility] y of Vaccine 00:00:00 [facility] Influenza Virus 2021-04-12 Completed [facility] y of Vaccine 00:00:00 [facility] Influenza Virus 2021-04-12 Completed [facility] y of Vaccine 00:00:00 [facility] Influenza Virus 2021-04-12 Completed [facility] y of Vaccine 00:00:00 [facility] Influenza Virus 2021-04-12 Completed [facility] y of Vaccine 00:00:00 [facility] Influenza Virus 2021-04-12 Completed [facility] y of Vaccine 00:00:00 [facility] Influenza Virus 2021-04-12 Completed [facility] y of Vaccine 00:00:00 [facility] Influenza Virus 2021-04-12 Completed [facility] y of Vaccine 00:00:00 [facility] Influenza Virus 2021-04-12 Completed [facility] y of Vaccine 00:00:00 [facility] Influenza Virus 2021-04-12 Completed [facility] y of Vaccine 00:00:00 [facility] Influenza Virus 2021-04-12 Completed [facility] y of Vaccine 00:00:00 [facility] Influenza Virus 2021-04-12 Completed [facility] y of Vaccine 00:00:00 [facility] Influenza Virus 2021-04-12 Completed [facility] y of Vaccine 00:00:00 [facility] Influenza Virus 2021-04-12 Completed [facility] Vaccine 00[facility]00:00 [facility] [facility] Influenza Virus 2021-04-12 Completed Universit y of Vaccine 00:00:00 [facility] Influenza Virus 2021-04-12 Completed Universit y of Vaccine 00:00:00 [facility] Influenza Virus 2021-04-12 Completed Universit y of Vaccine 00:00:00 [facility] Influenza Virus 2021-04-12 Completed Universit y of Vaccine 00:00:00 [facility] Influenza Virus 2021-04-12 Completed Universit y of Vaccine 00:00:00 [facility] Influenza Virus 2021-04-12 Completed Universit y of Vaccine 00:00:00 [facility] Influenza Virus 2021-04-12 Completed Universit y of Vaccine 00:00:00 [facility] Influenza Virus 2021-04-12 Completed Universit y of Vaccine 00:00:00 [facility] Influenza Virus 2021-04-12 Completed Universit y of Vaccine 00:00:00 [facility] Influenza Virus 2021-04-12 Completed Universit y of Vaccine 00:00:00 [facility] Influenza Virus 2021-04-12 Completed Universit y of Vaccine 00:00:00 [facility] Influenza Virus 2021-04-12 Completed Universit y of Vaccine 00:00:00 [facility] Influenza Virus 2021-04-12 Completed Universit y of Vaccine 00:00:00 [facility] Influenza Virus 2021-04-12 Completed Universit y of Vaccine 00:00:00 [facility] Influenza Virus 2021-04-12 Completed Universit y of Vaccine 00:00:00 [facility] Influenza Virus 2021-04-12 Completed Universit y of Vaccine 00:00:00 [facility] Influenza Virus 2021-04-12 Completed Universit y of Vaccine 00:00:00 [facility] Influenza Virus 2019-04-22 Completed Universit y of Vaccine Quad .5 mL 00:00:00 [facility] IM 6+ MO Branch Influenza Virus 2019-04-22 Completed Universit y of Vaccine Quad .5 mL 00:00:00 [facility] 6+ [facility] Influenza Virus 2019-04-22 Completed Universit y of Vaccine Quad .5 mL 00:00:00 [facility] IM 6+ MO [facility] Influenza Virus 2019-04-22 Completed Universit y of Vaccine Quad .5 mL 00:00:00 [facility] IM 6+ MO Branch Influenza Virus 2019-04-22 Completed Universit y of Vaccine Quad .5 mL 00:00:00 [facility] IM 6+ MO Branch Influenza Virus [...] y of Vaccine Quad .5 mL 00:00:00 [facility] IM 6+ MO Branch Influenza Virus [...] y of Vaccine Quad .5 mL 00:00:00 [facility] 6+ MO Branch TDAP 2013-06-09 Completed University of 00:00:00 [facility] TDAP 2013-06-09 Completed University of 00:00:00 [facility] TDAP 2013-06-09 Completed University of 00:00:00 [facility] TDAP 2013-06-09 Completed University of 00:00:00 [facility] TDAP 2013-06-09 Completed University of 00:00:00 [facility] TDAP 2013-06-09 Completed University of 00:00:00 [facility] TDAP 2013-06-09 Completed University of 00:00:00 [facility] TDAP 2013-06-09 Completed University of 00:00:00 [facility] TDAP 2013-06-09 Completed University of 00:00:00 [facility] TDAP 2013-06-09 Completed University of 00:00:00 [facility] TDAP 2013-06-09 Completed University of 00:00:00 [facility] TDAP 2013-06-09 Completed University of 00:00:00 [facility] TDAP 2013-06-09 Completed University of 00:00:00 [facility] TDAP 2013-06-09 Completed University of 00:00:00 [facility] TDAP 2013-06-09 Completed University of 00:00:00 [facility] TDAP 2013-06-09 Completed University of 00:00:00 [facility] TDAP 2013-06-09 Completed University of 00:00:00 [facility] TDAP 2013-06-09 Completed University of 00:00:00 [facility] TDAP 2013-06-09 Completed University of 00:00:00 [facility] TDAP 2013-06-09 Completed University of 00:00:00 [facility] TDAP 2013-06-09 Completed University of 00:00:00 [facility] TDAP 2013-06-09 Completed University of 00:00:00 [facility] TDAP 2013-06-09 Completed University of 00:00:00 [facility] TDAP 2013-06-09 Completed University of 00:00:00 [facility] TDAP 2013-06-09 Completed University of 00:00:00 [facility] TDAP 2013-06-09 Completed University of 00:00:00 [facility] TDAP 2013-06-09 Completed University of 00:00:00 [facility] TDAP 2013-06-09 Completed University of 00:00:00 [facility] TDAP 2013-06-09 Completed University of 00:00:00 [facility] TDAP 2013-06-09 Completed University of 00:00:00 [facility] TDAP 2013-06-09 Completed University of 00:00:00 [facility] TDAP 2013-06-09 Completed University of 00:00:00 [facility] TDAP 2013-06-09 Completed University of 00:00:00 [facility] TDAP 2013-06-09 Completed University of 00:00:00 [facility] TDAP 2013-06-09 Completed University of 00:00:00 [facility] TDAP 2013-06-09 Completed University of 00:00:00 [facility] TDAP 2013-06-09 Completed University of 00:00:00 [facility] TDAP 2013-06-09 Completed University of 00:00:00 [facility] TDAP 2013-06-09 Completed University of 00:00:00 [facility] TDAP 2013-06-09 Completed University of 00:00:00 [facility] TDAP 2013-06-09 Completed University of 00:00:00 [facility] TDAP 2013-06-09 Completed University of 00:00:00 [facility] TDAP 2013-06-09 Completed University of 00:00:00 [facility] TDAP 2013-06-09 Completed University of 00:00:00 [facility] TDAP 2013-06-09 Completed University of 00:00:00 [facility] TDAP 2013-06-09 Completed University of 00:00:00 [facility] TDAP 2013-06-09 Completed University of 00:00:00 [facility] TDAP 2013-06-09 Completed University of 00:00:00 [facility] TDAP 2013-06-09 Completed University of 00:00:00 [facility] TDAP 2013-06-09 Completed University of 00:00:00 [facility] TDAP 2013-06-09 Completed University of 00:00:00 [facility] TDAP 2013-06-09 Completed University of 00:00:00 [facility] TDAP 2013-06-09 Completed University of 00:00:00 [facility] TDAP 2013-06-09 Completed University of 00:00:00 [facility] TDAP 2013-06-09 Completed University of 00:00:00 [facility] TDAP 2013-06-09 Completed University of 00:00:00 [facility] TDAP 2013-06-09 Completed University of 00:00:00 [facility] TDAP 2013-06-09 Completed University of 00:00:00 [facility] Vital Signs Vital Name Observation Time Observation Value Comments Source Systolic blood 2022-04-03 19:51:00 134 mm[Hg] Univer sity of pressure [facility] Diastolic blood 2022-04-03 19:51:00 86 mm[Hg] Unive rsity of pressure [facility] Heart rate 2022-04-03 19:51:00 83 /min Universi of [facility] Oxygen saturation in 2022-04-03 19:51:00 97 /min [facility] Arterial blood by [facility] Pulse oximetry Branch Body temperature 2022-04-03 19:48:00 36.72 Araseli [facility] Respiratory rate 2022-04-03 19:48:00 17 /min [facility] Body weight 2022-04-03 19:48:00 111.63 kg Universi [facility] BMI 2022-04-03 19:48:00 39.72 kg/m2 Universi ty [facility] Systolic blood 2022-02-02 20:20:00 138 mm[Hg] Univer sity of pressure [facility] Diastolic blood 2022-02-02 20:20:00 90 mm[Hg] [facility] Heart rate 2022-02-02 20:19:00 78 /min [facility] Body height 2022-02-02 20:19:00 167.6 cm [facility] Body weight 2022-02-02 20:19:00 104.736 kg [facility] BMI 2022-02-02 20:19:00 37.27 kg/m2 [facility] Oxygen saturation in 2022-02-02 20:19:00 99 /min [place] [facility] Arterial blood by [facility] Pulse oximetry Branch Procedures Procedure Date / Time Performing Clinician Source Performed EXTERNAL PROVIDER - ADC 2022-05-03 06:01:00 Doctor Chadwick, [facility] CARDIOLOGY [facility] AUTHORIZATION TO RELEASE 2022-04-03 06:01:00 Doctor Chadwick, [facility] PHI TO [facility] US ABDOMEN COMPLETE 2022-02-13 18:24:56 [facility] FLU VACC (), 6 2022-02-02 20:37:25 Blessing Yanes [facility] MO-64 YRS, .5ML, IM, QUAD Medica l Branch (FLUCELVAX) MEDICATION CORRESPONDENCE 2022-01-19 05:01:00 Doctor Chadwick, [facility] DME/SUPPLY JUSTIFICATION 2021-12-25 05:01:00 Doctor Chadwick, [facility] CT Spine lumbar myelogram 2017-05-30 00:00:00 [facility] [id number] Plan of Care Planned Activity Planned Date Details Comments Source Future Scheduled 2022-10-25 [facility] Test 12:18:53 malignant neoplasm of colon (procedure) [code = 607011094] Future Scheduled 2022-10-25 [facility] Test 12:18:53 malignant neoplasm of colon (procedure) [code = 559782391] Future Scheduled 2022-10-25 [facility] Test 12:18:53 malignant neoplasm of colon (procedure) [code = 872721687] Future Scheduled 2022-10-25 COVID-19 VACCINE (#1) [facility] Test 12:18:53 [code = COVID-19 VACCINE (#1)] Future Scheduled 2022-10-25 [facility] Test 12:18:53 malignant neoplasm of colon (procedure) [code = 692653084] Future Scheduled 2022-10-25 [facility] Test 12:18:53 malignant neoplasm of colon (procedure) [code = 743010077] Future Scheduled 2022-10-25 SHINGLES VACCINES ([facility] 12:18:53 of 2) [code = SHINGLES VACCINES (1 of 2)] Future Scheduled 2022-10-25 INFLUENZA VACCINE Method [facility] Hospital Test 12:18:53 [code = INFLUENZA VACCINE] Future Scheduled 2022-08-15 COVID-19 VACCINE (#1) [facility] Hospital Test 23:12:16 [code = COVID-19 VACCINE (#1)] Future Scheduled 2022-08-15 COLONOSCOPY SCREENING [facility] Hospital Test 23:12:16 [code = COLONOSCOPY SCREENING] Future Scheduled 2022-08-15 SHINGLES VACCINES (1 [facility] Test 23:12:16 of 2) [code = SHINGLES VACCINES (1 of 2)] Future Scheduled 2022-08-15 INFLUENZA VACCINE Method [facility] Hospital Test 23:12:16 [code = INFLUENZA VACCINE] Future Scheduled 2022-04-25 COVID-19 VACCINE (#1) [facility] Hospital Test 20:19:34 [code = COVID-19 VACCINE (#1)] Future Scheduled 2022-04-25 COLONOSCOPY SCREENING [facility] Hospital Test 20:19:34 [code = COLONOSCOPY SCREENING] Future Scheduled 2022-04-25 [facility]IN[facility] 20:19:34 of 2) [code = SHINGLES VACCINES (1 of 2)] Future Scheduled 2022-04-25 INFLUENZA VACCINE Method [facility] Test 20:19:34 [code = INFLUENZA VACCINE] Future Scheduled 2022-04-25 COVID-19 [facility] 20:19:34 [code = COVID-19 VACCINE (#1)] Future Scheduled 2022-04-25 [facility] 20:19:34 [code = COLONOSCOPY SCREENING] Future Scheduled 2022-04-25 SHINGLES VACCINES (1 Met [facility] Hospital Test 20:19:34 of 2) [code = SHINGLES VACCINES (1 of 2)] Future Scheduled 2022-04-25 INFLUENZA VACCINE Method ist Hospital Test 20:19:34 [code = INFLUENZA VACCINE] Future Scheduled 2022-04-25 COVID-19 VACCINE (#[facility]) [facility] 20:19:34 [code = COVID-19 VACCINE (#1)] Future Scheduled 2022-04-25 COLONOSCOPY SCREENING [facility] Hospital Test 20:19:34 [code = COLONOSCOPY SCREENING] Future Scheduled 2022-04-25 SHINGLES VACCINES (1 [facility] Test 20:19:34 of 2) [code = SHINGLES VACCINES (1 of 2)] Future Scheduled 2022-04-25 INFLUENZA VACCINE Method ist Hospital Test 20:19:34 [code = INFLUENZA VACCINE] Future Scheduled 2022-04-25 COVID-19 VACCINE (#1) [facility] Hospital Test 20:19:34 [code = COVID-19 VACCINE (#1)] Future Scheduled 2022-04-25 COLONOSCOPY SCREENING [facility] Hospital Test 20:19:34 [code = COLONOSCOPY SCREENING] Future Scheduled 2022-04-25 SHINGLES VACCINES (1 [facility] Test 20:19:34 of 2) [code = SHINGLES VACCINES (1 of 2)] Future Scheduled 2022-04-25 INFLUENZA VACCINE Method [facility] Hospital Test 20:19:34 [code = INFLUENZA VACCINE] Future Scheduled 2022-03-14 HEPATITIS B VACCINES Met [facility] Test 23:23:26 (1 of 3 - 3-dose series) [code = HEPATITIS B VACCINES (1 of 3 - 3-dose series)] Future Scheduled 2022-03-14 COVID-19 VACCINE (#1) [facility] Test 23:23:26 [code = COVID-19 VACCINE (#1)] Future Scheduled 2022-03-14 COLONOSCOPY SCREENING [facility] Test 23:23:26 [code = COLONOSCOPY SCREENING] Future Scheduled 2022-03-14 SHINGLES VACCINES (1 [facility] Test 23:23:26 of 2) [code = SHINGLES VACCINES (1 of 2)] Future Scheduled 2022-03-14 INFLUENZA VACCINE Method [facility] Hospital Test 23:23:26 [code = INFLUENZA VACCINE] Future Scheduled 2022-03-14 HEPATITIS B VACCINES Met [facility] Test 23:23:26 (1 of 3 - 3-dose series) [code = HEPATITIS B VACCINES (1 of 3 - 3-dose series)] Future Scheduled 2022-03-14 COVID-19 VACCINE (#1) [facility] Test 23:23:26 [code = COVID-19 VACCINE (#1)] Future Scheduled 2022-03-14 COLONOSCOPY SCREENING [facility] Test 23:23:26 [code = COLONOSCOPY SCREENING] Future Scheduled 2022-03-14 SHINGLES VACCINES (1 [facility] Test 23:23:26 of 2) [code = SHINGLES VACCINES (1 of 2)] Future Scheduled 2022-03-14 INFLUENZA VACCINE Method [facility] Hospital Test 23:23:26 [code = INFLUENZA VACCINE] Future Scheduled 2022-01-03 INFLUENZA VACCINE Method [facility] Hospital Test 17:56:50 [code = INFLUENZA VACCINE] Future Scheduled 2022-01-03 HEPATITIS B VACCINES Met [facility] Test 17:56:50 (1 of 3 - 3-dose series) [code = HEPATITIS B VACCINES (1 of 3 - 3-dose series)] Future Scheduled 2022-01-03 COVID-19 VACCINE (#1) [facility] Test 17:56:50 [code = COVID-19 VACCINE (#1)] Future Scheduled 2022-01-03 COLONOSCOPY SCREENING [facility] Test 17:56:50 [code = COLONOSCOPY SCREENING] Future Scheduled 2022-01-03 SHINGLES VACCINES (1 Met [facility] Test 17:56:50 of 2) [code = SHINGLES VACCINES (1 of 2)] Future Scheduled 2022-01-03 INFLUENZA VACCINE Method is Hospital Test 17:56:50 [code = INFLUENZA VACCINE] Future Scheduled 2022-01-03 HEPATITIS B VACCINES Met [facility] Test 17:56:50 (1 of 3 - 3-dose series) [code = HEPATITIS B VACCINES (1 of 3 - 3-dose series)] Future Scheduled 2022-01-03 COVID-19 VACCINE (#1) [facility] Test 17:56:50 [code = COVID-19 VACCINE (#1)] Future Scheduled 2022-01-03 COLONOSCOPY SCREENING [facility] Test 17:56:50 [code = COLONOSCOPY SCREENING] Future Scheduled 2022-01-03 SHINGLES VACCINES (1 [facility] Test 17:56:50 of 2) [code = SHINGLES VACCINES (1 of 2)] Future Scheduled 2022-01-03 INFLUENZA VACCINE Method [facility] Hospital Test 17:56:50 [code = INFLUENZA VACCINE] Future Scheduled 2022-01-03 HEPATITIS B VACCINES Met [facility] Test 17:56:50 (1 of 3 - 3-dose series) [code = HEPATITIS B VACCINES (1 of 3 - 3-dose series)] Future Scheduled 2022-01-03 COVID-19 VACCINE (#1) [facility] Test 17:56:50 [code = COVID-19 VACCINE (#1)] Future Scheduled 2022-01-03 COLONOSCOPY SCREENING [facility] Test 17:56:50 [code = COLONOSCOPY SCREENING] Future Scheduled 2022-01-03 SHINGLES VACCINES (1 [facility] Test 17:56:50 of 2) [code = SHINGLES VACCINES (1 of 2)] Future Scheduled 2022-01-03 INFLUENZA VACCINE Method [facility] Hospital Test 17:56:50 [code = INFLUENZA VACCINE] Future Scheduled 2022-01-03 HEPATITIS B VACCINES [facility] Test 17:56:50 (1 of 3 - 3-dose series) [code = HEPATITIS B VACCINES (1 of 3 - 3-dose series)] Future Scheduled 2022-01-03 COVID-19 VACCINE (#1) [facility] Test 17:56:50 [code = COVID-19 VACCINE (#1)] Future Scheduled 2022-01-03 COLONOSCOPY SCREENING [facility] Test 17:56:50 [code = COLONOSCOPY SCREENING] Future Scheduled 2022-01-03 SHINGLES VACCINES (1 Met [facility] Test 17:56:50 of 2) [code = SHINGLES VACCINES (1 of 2)] Future Scheduled 2022-01-03 INFLUENZA VACCINE Method [facility] Hospital Test 17:56:50 [code = INFLUENZA VACCINE] Future Scheduled 2022-01-03 HEPATITIS B VACCINES Met [facility] Test 17:56:50 (1 of 3 - 3-dose series) [code = HEPATITIS B VACCINES (1 of 3 - 3-dose series)] Future Scheduled 2022-01-03 COVID-19 VACCINE (#1) [facility] Test 17:56:50 [code = COVID-19 VACCINE (#1)] Future Scheduled 2022-01-03 COLONOSCOPY SCREENING [facility] Test 17:56:50 [code = COLONOSCOPY SCREENING] Future Scheduled 2022-01-03 SHINGLES VACCINES (1 Met [facility] Test 17:56:50 of 2) [code = SHINGLES VACCINES (1 of 2)] Encounters Start End Encounter Admission Attending Care Care Encounter Source Date/Time Date/Time Type Type Clinicians Facility Department ID 2022-10-24 2022-10-24 Outpatient R [facility] [id number] Univers 14:40:00 14:40:00 DILIP donnelly [facility] 2022-10-15 2022-10-15 [facility] [id number] Univers 14:40:00 14:40:00 DILIP alonso [facility] 2022-10-12 2022-10-12 [facility] [id number] Univers 00:00:00 00:00:00 Blessing A HEALTH 350.1.13.10 i ty of [place] 4.2.7.2.686 Adrien as BORIS?BLEA [id number] [address] MEDICAL OFFICE BUILDING 2022-10-12 2022-10-12 [facility] [id number] Univers 00:00:00 00:00:00 [facility]ing A HEALTH 350.1.13.10 i ty of [place] 4.2.7.2.686 Adrien as BORIS?BLEA [id number] [facility] [address] 2022-10-12 2022-10-12 [facility] [id number] Univers 00:00:00 00:00:00 Blessing [facility] HEALTH 350.1.13.10 i ty of [place] 4.2.7.2.686 Adrien as BORIS?BLEA [id number] [address] 2022-10-12 2022-10-12 [facility] [id number] Univers 00:00:00 00:00:00 [facility] HEALTH 350.1.13.10 i [facility] 4.2.7.2.686 Adrien as BORIS?BLEA [phone] [facility] [address] 2022-10-01 2022-10-01 [facility] [id number] Univers 14:00:00 14:00:00 DILIP ity o f [facility] 2022-09-18 2022-09-18 Telephone [facility] [id number] Univers 00:00:00 00:00:00 [facility] 350.1.13.10 [place] [id number] [facility] 059 [facility] 2022 2022 Outpatient [facility] [id number] Univers 09:00:00 09:00:00 DILIP ity o f [facility] 2022-09-05 2022-09-[address] [facility] 1.2.840.114 [id number] Univers 00:00:00 00:00:00 Blessing A HEALTH 350.1.13.10 i ty of [place] 4.2.7.2.686 Adrien as BORIS?BLEA [id number] [address] 2022-09-03 2022-09-03 [facility] 1.2.840.114 [id number] Univers 00:00:00 00:00:00 Secure Msg Blessing A HEALTH 350.1.13.10 ity of [place] 4.2.7.2.686 Adrien as BORIS?BLEA [id number] [address] MEDICAL OFFICE [facility] 2022-08-31 2022-08-31 Patient Farzana, [facility] 1.2.840.114 [id number] Univers 00:00:00 00:00:00 Secure Msg Blessing A HEALTH 350.1.13.10 ity of [place] 4.2.7.2.686 Adrien as BORIS?BLEA [id number] [address] OFFICE [facility] 2022-08-31 2022-08-31 Patient Hoang, [facility] [id number] [id number] Univers 00:00:00 00:00:00 Secure Msg Dilip [place] 350.1.13.10 ity [place] [id number] Al dicnd NAL 9 [facility] 2022-08-31 2022-08-31 Refmarah [facility] 1.2.840.114 [id number] Univers 00:00:00 00:00:00 Maggie MULTISPEC 350.1.13.10 [place]2.7.2.[place] [id number] Adore cotton AND JAIRO 0[address] [place] [facility] 2022-08-31 2022-08-31 [facility]abella [facility] 1.2.840.114 [id number] Univers 00:00:00 00:00:00 Alfred HEALTH 350.1.13.10 it y of [place] 4.2.7.2.686 Adrien as BORIS?BLEA [id number] [address] OFFICE [facility] 2022-08-27 2022-08-27 Telephone Hoang, [facility] [id number] Univers 00:00:00 00:00:00 Qiangjun [place] 350.1.13.10 ity [place] 4[place] [id number] Al dical TOMY 059 [facility] 2022-08-14 2022-08-14 Patient Farzana, [facility] [id number] [id number] Univers 00:00:00 00:00:00 Secure Msg Blessing [facility] HEALTH 350.1.13.10 ity of [place] 4.2.7.2.686 Adrien as BORIS?BLEA [id number] [address] MEDICAL OFFICE [facility] 2022-08-11 2022-08-11 Emergency ER CATANESCU, [facility] [id number] [place] 05:03:00 06:34:00 TEREZA -[id number] [facility] 2022-07-21 2022-07-21 Emergency ER SHEKHAR, [facility] [id number] [place] 19:47:00 21:28:00 CASSY -[id number] [facility] 2022-07-03 2022-07-03 Outpatient BIBIANA [facility] [id number] [place] 00:00:00 00:00:00 HN [id number] [facility] 2022-07-02 2022-07-02 Telephone Rachelle [facility] [id number] [id number] Univers 00:00:00 00:00:00 Kay Francis MULTISPEC 350.1.13.10 [place] SLE[place] [id number] Adore Sheth 056 [place] [facility] 2022-06-25 2022-06-25 Refill Doctor [facility] [id number] [id number] Univers 00:00:00 00:00:00 Unassigned, HEALTH 350.1.13.10 ity of [place] 4.2.7.2.686 Adrien as BORIS?BLEA [phone] Al dic[address] OFFICE [facility] 2022-06-25 2022-06-25 Refill Farzana, [facility] [id number] [id number] Univers 00:00:00 00:00:00 Blessing A HEALTH 350.1.13.10 i ty of [place] 4.2.7.2.686 Adrien as BORIS?BLEA [id number] [address] MEDICAL OFFICE [facility] 2022-06-25 2022-06-25 Refill Farzana, [facility] 1.2.840.114 [id number] Univers 00:00:00 00:00:00 Blessing A HEALTH 350.1.13.10 i ty of [place] 4.2.7.2.686 Adrien as BORIS?BLEA [id number] [address] OFFICE [facility] 2022-06-25 2022-06-25 Patient Farzana, [facility] 1.2.840.114 [id number] Univers 00:00:00 00:00:00 Secure Msg Blessing A HEALTH 350.1.13.10 ity of [place] 4.2.7.2.686 Adrien as BORIS?BLEA [id number] [address] OFFICE [facility] 2022-05-03 2022-05-03 Orders Doctor ALEM 1.2.840.114 [id number] Univers 00:00:00 00:00:00 Only Unassigned, LUIS ARMANDO 350.1.13.10 ity of [place] [facility] 4.2.7.2.686 Adrien as [phone] [address] 2022-04-24 2022-04-24 Patient Hoang, [facility] 1.2.840.114 [id number] Univers 00:00:00 00:00:00 Secure Msg Dilip [place] 350.1.13.10 ity of [place].2.7.2.[place] [phone] Al dical NAL 059 [facility] 2022-04-23 2022-04-23 Patient Farzana, [facility] 1.2.840.114 [id number] Univers 00:00:00 00:00:00 Secure Msg Blessing A HEALTH 350.1.13.10 ity of [place] 4.2.7.2.686 Adrien as BORIS?BLEA [id number] [address] OFFICE [facility] 2022-04-23 2022-04-23 Patient Farzana, [facility] 1.2.840.114 [id number] Univers 00:00:00 00:00:00 Secure Msg Blessing A HEALTH 350.1.13.10 ity of [place] 4.2.7.2.686 Adrien as BORIS?BLEA [phone] [address] MEDICAL OFFICE [facility] 2022-04-22 2022-04-22 [facility] 1.2.840.114 [id number] Univers 00:00:00 00:00:00 Blessing A HEALTH 350.1.13.10 i ty of [place] 4.2.7.2.686 Adrien as BORIS?BLEA [id number] [address] OFFICE [facility] 2022-04-08 2022-04-08 Telephone [facility] 1.2.588.243 [id number] Univers 00:00:00 00:00:00 Blessing A HEALTH 350.1.13.10 i ty of [place] 4.2.7.2.686 Adrien as BORIS?BLEA [id number] [address] OFFICE [facility] 2022-04-06 2022-04-06 Emergency ER SKYLAR, [facility] [id number] [place] 12:30:00 15:21:00 ADITYA -[id number] [facility] 2022-04-06 2022-04-06 [facility]ill [facility] 1.2.840.114 [id number] Univers 00:00:00 00:00:00 Qiadeon [facility] 350.1.13.10 ity of [place] 4.2.7.2.[place]ESS [id number] Al dical [facility] 2022-04-04 2022-04-04 Patient Rachelle [facility] 1.2.840.114 [id number] Univers 00:00:00 00:00:00 Secure Msg Kay Francis MULTISPEC 350.1.13.10 ity of [place] 4.2.7.2.686 [place] SLEMP [id number] Adore Sheth 056 [place] [facility] 2022-04-03 2022-04-03 Office [facility] 1.2.840.114 [id number] Univers 14:20:00 14:20:00 Visit Zachbeau TERRANCE 350.1.13.10 ity of [place] 4.2.7.2.686 [place] [facility] [id number] Al dical [facility] 2022-04-03 2022-04-03 Outpatient R HOANG, [facility] [id number] Univers 14:20:00 14:09:45 DILIP donnelly o [facility] 2022-04-03 2022-04-03 Isidoromarah [facility] 1.2.840.114 [id number] Univers 00:00:00 00:00:00 Kay BARR 350.1.13.10 ity of [place] 4.2.7.2.686 [place] SLE[place] [id number] [facility] [place] 947316 [place] [facility] 2022-04-03 2022-04-03 Orders Doctor FERRARA 1.2.840.114 [id number] Univers 00:00:00 00:00:00 Only Unassigned, LUIS ARMANDO 350.1.13.10 ity of [place] [facility] 4.2.7.2.686 Adrien as [phone] [facility] [address] 2022-03-19 2022-03-19 Outpatient R HOANG, [facility] [id number] Univers 09:20:00 09:20:00 DILIP calderónjoie o [facility] 2022-03-19 2022-03-19 Outpatient R HOANG, [facility] [id number] Univers 09:20:00 09:20:00 DILIP calderónjoie o [facility] 2022-03-19 2022-03-19 Outpatient R HOANG, [facility] [id number] Univers 09:20:00 09:20:00 DILIP calderónjoie o [facility] 2022-03-19 2022-03-19 Outpatient R HOANG, [facility] [id number] Univers 09:20:00 09:20:00 DILIP cony o [facility] 2022-03-19 2022-03-19 Outpatient R HOANG, [facility] [id number] Univers 09:20:00 09:20:00 DILIP calderóny o f [facility] 2022-02-15 2022-02-15 Telephone [facility] 1.2.226.839 [id number] Univers 00:00:00 00:00:00 Blessing Nemesio HEALTH 350.1.13.10 i ty of [facility] 4.2.7.2.686 Adrien as BORIS?BLEA [phone] [address] OFFICE [facility] 2022-02-14 2022-02-14 Outpatient FERGUSON_JO [facility] [address]14 [place] 00:00:00 00:00:00 HN 1005 [facility] 2022-02-14 2022-02-14 Patient [facility] 1.2.840.114 [id number] Univers 00:00:00 00:00:00 Secure Msg Blessing A HEALTH 350.1.13.10 ity of [place] 4.2.7.2.686 Adrien as BORIS?BLEA [id number] [address] 2022-02-13 2022-02-13 Outpatient [facility] [id number] Univers 12:37:39 23:59:00 BLESSING cony of [facility] 2022-02-13 2022-02-13 [facility] 1.2.840.114 [id number] Univers 12:37:39 23:59:00 Encounter Blessing Herr [facility] 350.1.13.10 ity [facility] 4.2.7.2.686 [place] [id number] [facility] [address] [place] 2022-02-08 2022-02-09 [facility] [id number] [place] 06:37:00 18:02:00 Mariola -[id number] [facility] 2022-02-09 2022-02-09 Isabella [facility] 1.2.840.114 [id number] Univers 00:00:00 00:00:00 Dilip [facility] 350.1.13.10 ity of [facility] 4.2.7.2.686 [place] [facility] [id number] Al dical NAL 059 [facility] 2022-02-08 2022-02-08 Patient Rico [facility] 1.2.840.114 [id number] Univers 00:00:00 00:00:00 Secure Msg Jacqui Beaver [place] 350.1.13.10 ity of [facility] 4.2.7.2.686 [place] [id number] Al dical NAL 044 [facility] 2022-02-08 2022-02-08 Patient [facility] 1.2.840.114 [id number] Univers 00:00:00 00:00:00 Secure Msg Blessing A HEALTH 350.1.13.10 ity of [place] 4.2.7.2.686 Adrien as BORIS?BLEA [id number] [facility] 044 [facility] OFFICE [facility] 2022-02-05 2022-02-05 Telephone [facility] 1.2.034.209 [id number] Univers 00:00:00 00:00:00 Blessing A HEALTH 350.1.13.10 i ty of [place] 4.2.7.2.686 Adrien as BORIS?BLEA [id number] [address] OFFICE [facility] 2022-02-02 2022-02-02 [facility], Ang - Db [facility] 1.2.840.1 14 [id number] Univers 16:00:00 16:15:00 Visit Farzana Blessing A HEALTH 350.1.13.10 ity of [place] 4.2.7.2.686 Adrien as BORIS?BLEA [id number] [facility] 353 [facility] OFFICE [facility] 2022-02-02 2022-02-02 Outpatient R [facility] [id number] Univers 15:00:00 15:49:47 BLESSING ity of [facility] 2022-02-02 2022-02-[address] [facility] 1.2.840.114 [id number] Univers 15:00:00 15:49:47 Visit Blessing Herr HEALTH 350.1.13.10 i ty of [place] 4.2.7.2.686 Adrien as BORIS?BLEA [id number] Al dicbrian ROWAN [address] [place] MEDICAL OFFICE BUILDING 2022-02-02 2022-02-02 Outpatient R FARZANA [facility] [id number] Univers 14:30:00 14:30:00 BLESSING itjoie of [facility] 2022-01-19 2022-01-19 Orders Doctor ALEM 1.2.840.114 [id number] Univers 00:00:00 00:00:00 Only Unassigned, LUIS ARMANDO 350.1.13.10 ity of [place] [facility] 4.2.7.2.686 Adrien as [phone] [facility] [address] [place] 2022-01-16 2022-01-16 Refill Hoang [facility] 1.2.840.114 [id number] Univers 00:00:00 00:00:00 Dilip CARLOS 350.1.13.10 ity of [place] 4.2.7.2.686 [place] ESSTHANH [id number] Al dical NAL 059 [facility] 2022-01-08 2022-01-08 Case ALEM Rodriguez 1.2.840.114 [id number] Univers 00:00:00 00:00:00 Management Ashley BELLAMY 350.1.13.10 ity of [facility] 4.2.7.2.686 Adrien as [id number] [facility] [address] [place] 2022-01-06 2022-01-07 Inpatient ER Nick [facility] [id number] [place] 14:59:00 16:35:00 Mariola -[id number] [facility] 2022-01-05 2022-01-05 Emergency ER Leticia [facility] [id number] [place] 21:17:00 22:57:00 Yissel -[id number] [facility] 2022-01-04 2022-01-04 Patient Rico [facility] 1.2.840.114 [id number] Univers 00:00:00 00:00:00 Secure Msg Jacqui [facility] 350.1.13.10 ity of [place] 4.2.7.2.686 Adrien as BORIS?BLEA [phone] Al dical ANUM [address] [place] MEDICAL OFFICE [facility] 2022-01-04 2022-01-04 Patient [facility] 1.2.840.114 [id number] Univers 00:00:00 00:00:00 Secure Msg Blessing A HEALTH 350.1.13.10 ity of [facility] 4.2.7.2.686 Adrien as BORIS?BLEA [id number] [address] OFFICE [facility] 2022-01-02 2022-01-02 Refill [facility] 1.2.840.114 [id number] Univers 00:00:00 00:00:00 Blessing A HEALTH 350.1.13.10 i ty of [facility] 4.2.7.2.686 Adrien as BORIS?BLEA [id number] [address] OFFICE [facility] 2022-01-01 2022-01-01 Refill [facility] 1.2.840.114 [id number] Univers 00:00:00 00:00:00 Blessing A HEALTH 350.1.13.10 i ty of [place] 4.2.7.2.686 Adrien as BORIS?BLEA [id number] [address] 2021-12-29 2021-12-29 Refmarah oBltonPLAINS [facility] 1.2.840.114 [id number] Univers 00:00:00 00:00:00 Qiangbeau [facility] 350.1.13.10 ity of [place].2.7.2.[place] [id number] [facility] 059 [facility] 2021-12-25 2021-12-25 Orders Doctor ALEM 1.2.840.114 [id number] Univers 00:00:00 00:00:00 Only Unassigned, LUIS ARMANDO 350.1.13.10 ity of [place] [facility] 4.2.7.2.686 Adrien as [id number] [address] 2021-12-06 2021-12-06 Outpatient R FARZANA [facility] [id number] Univers 11:30:00 11:30:00 BLESSING ity of [facility] 2021-12-01 2021-12-[address] [facility] 1.2.840.114 [id number] Univers 00:00:00 00:00:00 Blessing A HEALTH 350.1.13.10 i ty of [place] 4.2.7.2.686 Adrien as BORIS?BLEA [id number] [address] OFFICE [facility] 2021-11-30 2021-11-30 Refmarah [facility] 1.2.840.114 [id number] Univers 00:00:00 00:00:00 Qiadeon [place] 350.1.13.10 ity of [place] 4.2.7.2.686 [place] O[place] [id number] [facility] 059 [facility] 2021-11-30 2021-11-30 Telephone [facility] 1.2.592.736 [id number] Univers 00:00:00 00:00:00 Blessing A HEALTH 350.1.13.10 i ty of [place] 4.2.7.2.686 Adrien as BORIS?BLEA [id number] [address] 2021-11-17 2021-11-17 Telephone [facility] 1.2.978.226 [id number] Univers 00:00:00 00:00:00 Blessing A HEALTH 350.1.13.10 i ty of [place] 4.2.7.2.686 Adrien as BORIS?BLEA [id number] [address] 2021-11-17 2021-11-17 Telephone [facility] 1.2.840.114 [id number] Univers 00:00:00 00:00:00 Jany HEALTH 350.1.13.10 it y of [place] 4.2.7.2.686 Adrien as BORIS?BLEA [id number] [address] 2021-11-14 2021-11-14 Patient [facility] 1.2.840.114 [id number] Univers 00:00:00 00:00:00 Secure Msfeng Osman M HEALTH 350.1.13.10 ity of [place] 4.2.7.2.686 Adrien as BORIS?BLEA [id number] [address] OFFICE [facility] 2021-11-14 2021-11-14 Patient [facility] 1.2.840.114 [id number] Univers 00:00:00 00:00:00 Secure Msg Jacqui Beaver HEALTH 350.1.13.10 ity of [place] 4.2.7.2.686 Adrien as BORIS?BLEA [id number] [address] 2021-11-14 2021-11-14 Patient [facility] 1.2.840.114 [id number] Univers 00:00:00 00:00:00 Secure Msg Blessing A HEALTH 350.1.13.10 ity of [place] 4.2.7.2.686 Adrien as BORIS?BLEA [id number] [address] 2021-11-08 2021-11-08 Emergency X [facility] ERT [id number] Univers 07:59:00 08:59:00 TAO cony [facility] 2021-11-08 2021-11-08 Emergency [facility] 1.2.474.242 [id number] Univers 07:59:00 08:59:00 Tao [facility]BEAU 350.1.13.10 i ty of [place] 4.2.7.2.686 [place] [facility] [id number] [address] 2021-11-08 2021-11-08 Telephone [facility] 1.2.400.238 [id number] Univers 00:00:00 00:00:00 Blessing A HEALTH 350.1.13.10 i ty of [place] 4.2.7.2.686 Adrien as BORIS?BLEA [id number] [address] 2021-11-07 2021-11-07 Outpatient Sofia BUSH [facility] [id number] Univers 14:30:00 14:30:00 KAY pickering [facility] 2021-11-07 2021-11-07 Outpatient R RACHELLE [facility] [id number] Univers 14:30:00 14:30:00 KAY pickering [facility] 2021-11-07 2021-11-07 Outpatient R RACHELLE, [facility] [id number] Univers 14:30:00 14:30:00 KAY stephanejoie celeste james [facility] 2021-11-01 2021-11-01 Outpatient R CARLO, [facility] [id number] Univers 12:30:00 12:30:00 TIERRA joie [facility] 2021-11-01 2021-11-01 Telephone [facility] 1.2.794.848 [id number] Univers 00:00:00 00:00:00 Blessing Herr HEALTH 350.1.13.10 i ty of [place] 4.2.7.2.686 Adrien as BORIS?BLEA [id number] [address] MEDICAL OFFICE [facility] 2021-10-25 2021-10-25 Outpatient R FARZANA [facility] [id number] Univers 09:30:00 09:48:15 BLESSING donnelly [facility] 2021-10-25 2021-10-[address] [facility] 1.2.840.114 [id number] Univers 09:30:00 09:48:15 Visit Blessing Herr HEALTH 350.1.13.10 i ty of [place] 4.2.7.2.686 Adrien as BORIS?BLEA [phone] [address] MEDICAL OFFICE [facility] 2021-10-19 2021-10-19 Telephone Hoang [facility] 1.2.414.727 [id number] Univers 00:00:00 00:00:00 Dilip [facility] 350.1.13.10 ity of [place] 4.2.7.2.686 [place] [id number] [facility] 059 [facility] 2021-10-18 2021-10-18 Patient Rico [facility] 1.2.840.114 [id number] Univers 00:00:00 00:00:00 Secure Msg Jacqui Beaver HEALTH 350.1.13.10 ity of [facility] 4.2.7.2.686 Adrien as BORIS?BLEA [phone] Me dical KNEY 044 [facility] 2021-09-28 2021-09-28 Outpatient R ABILIO, [facility] [id number] Univers 15:30:00 15:30:00 S[facility] 2021-09-28 2021-09-28 Outpatient R ABILIO, [facility] [id number] Univers 15:30:00 15:30:00 [facility] 2021-09-27 2021-09-27 Outpatient R DEANN, [facility] [id number] Univers 10:40:00 10:40:00 PRINCESS [facility] 2021-09-27 2021-09-27 Telephone [facility] 1.2.874.898 [id number] Univers 00:00:00 00:00:00 Blessing Herr HEALTH 350.1.13.10 i ty of [place] 4.2.7.2.686 Adrien as BORIS?BLEA [id number] Al susanna ROWAN [address] [place] [address] 2021-09-26 2021-09-26 Outpatient R BRENDEN, [facility] [id number] Univers 14:00:00 14:00:00 SHANNAN [facility] 2021-09-21 2021-09-21 [facility] BLADIMIR Crespo 1.2.840.114 [id number] Univers 15:19:00 23:59:00 Encounter Cass Walls 350.1.13.10 ity [facility] 4.2.7.2.686 Adrien as [id number] [address] 2021-09-21 2021-09-21 Outpatient R [facility] ACO [id number] Univers 00:00:00 23:59:00 CASS [facility] 2021-09-20 2021-09-20 [facility], Ang - Israel [facility] 1.2.840.1 14 [id number] Univers 11:00:00 11:15:00 Visit Blessing Yanes A HEALTH 350.1.13.10 ity of [place] 4.2.7.2.686 Adrien as BORIS?BLEA [id number] Al susanna ROWAN [address] [facility] OFFICE [facility] 2021-09-20 2021-09-20 Outpatient [facility] [id number] Univers 11:00:00 11:00:00 BLESSING donnelly [facility] 2021-09-20 2021-09-20 Office [facility] 1.2.840.114 [id number] Univers 10:30:00 11:00:00 Visit Blessing Herr HEALTH 350.1.13.10 i ty of [facility] 4.2.7.2.686 Adrien as BORIS?BLEA [id number] [address] OFFICE [facility] 2021-09-20 2021-09-20 Outpatient [facility] [id number] Univers 10:30:00 10:30:00 BLESSING donnelly [facility] 2021-09-20 2021-09-20 Telephone [facility] 1.2.217.794 [id number] Univers 00:00:00 00:00:00 Blessing Herr HEALTH 350.1.13.10 i ty of [place] 4.2.7.2.686 Adrien as BORIS?BLEA [id number] [address] OFFICE [facility] 2021-09-18 2021-09-18 Telephone [facility] 1.2.282.927 [id number] Univers 00:00:00 00:00:00 Dilip [facility] 350.1.13.10 ity of [place] 4.2.7.2.[place] [id number] [facility] 059 [facility] 2021-09-15 2021-09-15 Patient Rico [facility] 1.2.840.114 [id number] Univers 00:00:00 00:00:00 Secure Msg Jacqui Beaver HEALTH 350.1.13.10 ity of [place] 4.2.7.2.686 Adrien as BORIS?BLEA [id number] [address] OFFICE [facility] 2021-09-14 2021-09-14 Outpatient R CARLO [facility] [id number] Univers 13:42:35 23:59:00 TIERRA donnelly [facility] 2021-09-14 2021-09-14 Outpatient R HOANG [facility] [id number] Univers 15:00:00 15:27:51 DILIP calderóny o f [facility] 2021-09-14 2021-09-14 Office [facility] 1.2.840.114 [id number] Univers 15:00:00 15:27:51 Visit Dilip TERRANCE 350.1.13.10 ity of [place] 4.2.7.2.686 [place] [facility] [id number] Al susanna NAL [address] [facility] 2021-09-14 2021-09-14 Outpatient R HOANG, [facility] [id number] Univers 15:00:00 15:00:00 DILIP donnelly o f [facility] 2021-09-14 2021-09-14 Outpatient R CARLO, [facility] [id number] Univers 14:00:00 14:00:00 TIERRA [facility] 2021-09-14 2021-09-14 Shaper Hand Therapist, [facility] 1.2.840.114 [id number] Univers 12:30:00 12:45:00 Visit Desean Gay 350.1.13. 10 ity [facility] 4.2.7.2.686 [place] [id number] [facility] [address] [place] 2021-09-14 2021-09-14 Outpatient R RICCARDO, [facility] [id number] Univers 12:30:00 12:30:00 DESEAN [facility] 2021 2021 Outpatient R DEANN, [facility] [id number] Univers 13:40:00 13:40:00 PRINCESS [facility] 2021-09-06 2021-09-06 Telephone [facility] 1.2.322.222 [id number] Univers 00:00:00 00:00:00 Blessing A HEALTH 350.1.13.10 i ty of [place] 4.2.7.2.686 Adrien as BORIS?BLEA [id number] Al dical KNEY [address] [place] MEDICAL OFFICE BUILDING 2021-09-05 2021-09-05 Outpatient R RACHELLE, [facility] [id number] Univers 13:30:00 15:06:45 KAY pickering [facility] 2021-09-05 2021-09-05 Office [facility] .2.840.114 [id number] Univers 13:30:00 15:06:45 Visit Kay Tito [facility] 350.1.13.10 [facility] 4.2.7.2.686 [place] C[place] [id number] [facility] [place] [address] [facility] 2021-09-05 2021-09-05 Outpatient R RACHELLE [facility] [id number] Univers 13:30:00 13:30:00 KAY stephanejoie alonso [facility] 2021-09-05 2021-09-05 [facility] [id number] Univers 13:30:00 13:30:00 KAY stephanejoie alonso [facility] 2021-09-04 2021-09-04 Office MELIZA Morales [id number] Univers 08:00:00 08:53:32 Visit Arely Y [id number] i ty of [employer] [id number] Adrien as BANK [id number] [facility] BLDG. [address] 2021-09-04 2021-09-04 Outpatient Sof[facility] [id number] Univers 08:00:00 08:53:32 ARELY ity o [facility] 2021-09-04 2021-09-04 Outpatient Sofia MORALES [facility] [id number] Univers 08:00:00 08:53:32 ARELY ity o [facility] 2021-09-04 2021-09-04 Outpatient Sofia MORALES [facility] [id number] Univers 08:00:00 08:00:00 ARELY ity o [facility] 2021-09-04 2021-09-04 Outpatient R CARMEN [facility] [id number] Univers 08:00:00 08:00:00 ARELY ity o [facility] 2021-08-31 2021-08-31 [facility] [id number] [facility] 08:07:43 23:59:00 Encounter Blessing TOMASTON [id number] ity of [place] [id number] [facility] [id number] [facility] [address] 2021-08-31 2021-08-31 [facility] [id number] [facility] 08:06:25 08:06:25 Encounter Sindy THOMTON [id number] ity of [place] [id number] [facility] [id number] [facility] [address] 2021-08-31 2021-08-31 [facility] [id number] [place] [address] 08:06:11 08:06:11 Encounter Sindy TERRANCE [id number] ity of [place] [id number] [facility] [id number] [facility] [address] [place] 2021-08-31 2021-08-31 Outpatient R SINDY ONEILL [facility] [id number] Univers 08:06:11 08:06:11 MIRANDASINDY WHITE [facility] 2021-08-31 2021-08-31 Outpatient R SINDY ONEILL [facility] [id number] Univers 08:06:11 08:06:11 SINDY ONEILL [facility] 2021-08-31 2021-08-31 [facility] [id number] [place] [address] 08:04:49 08:05:00 Encounter Sindyelvia CARLOS 350.1.13.10 ity of [place] 4.2.7.2.686 [facility] [id number] [place] [address] [place] 2021-08-31 2021-08-31 Outpatient R SINDY ONEILL [facility] [id number] Univers 08:04:32 08:05:00 SINDY ONEILL [facility] 2021-08-31 2021-08-31 [facility] 1.2.840.[id number] [place] [address] 08:04:32 08:05:00 Encounter Sindyadrien CARLOS 350.1.13.10 ity of [place] 4.2.7.2.686 [facility] [id number] [facility] [address] 2021-08-31 2021-08-31 Outpatient R SINDY ONEILL [facility] [id number] Univers 00:00:00 00:00:00 SINDY ONEILL [facility] 2021-08-31 2021-08-31 Outpatient R FARZANA [facility] [id number] Univers 00:00:00 00:00:00 BLESSING donnelly [facility] 2021-08-22 2021-08-22 Orders Doctor ALEM 1.2.840.114 [id number] Univers 00:00:00 00:00:00 Only Unassigned, LUIS ARMANDO 350.1.13.10 ity of [facility] 4.2.7.2.686 [facility] [id number] [facility] 009 [place] 2021-08-21 2021-08-21 Outpatient R CARLO [facility] [id number] Univers 13:00:00 14:01:28 TIERRA ity [facility] 2021-08-21 2021-08-21 [facility] 1.2.840.114 [id number] Univers 13:00:00 14:01:28 Visit [facility] 350.1.13.10 it y of [place] 4.2.7.2.686 [place] a [place]LD[place] [id number] [address] OFFICE BUILDING 2021-08-21 2021-08-21 Outpatient R CARLO [facility] [id number] Univers 13:00:00 14:01:28 TIERRA ity [facility] 2021-08-21 2021-08-21 Office [facility] 1.2.840.114 [id number] Univers 13:00:00 14:01:28 Visit [facility] 350.1.13.10 it y of [place] 4.2.7.2.686 [place] a [place] [id number] [address] OFFICE BUILDING 2021-08-21 2021-08-21 Telephone Farzana [facility] 1.2.199.031 [id number] Univers 00:00:00 00:00:00 Blessing A HEALTH 350.1.13.10 i ty of [place] 4.2.7.2.686 Adrien as BORIS?BLEA [phone] [address] MEDICAL OFFICE BUILDING 2021-08-21 2021-08-21 Telephone Farzana, [facility] 1.2.682.795 [id number] Univers 00:00:00 00:00:00 Blessing A HEALTH 350.1.13.10 i ty of [place] 4.2.7.2.686 Adrien as BORIS?BLEA [id number] [address] OFFICE BUILDING 2021-08-21 2021-08-21 Telephone Matos, [facility] 1.2.650.083 [id number] Univers 00:00:00 00:00:00 Tierra HEALTH 350.1.13.10 it y of [place] 4.2.7.2.686 [place] [id number] [place] [address] [address] OFFICE [facility] 2021-08-21 2021-08-21 Telephone Matos, [facility] 1.2.352.102 [id number] Univers 00:00:00 00:00:00 Tierra HEALTH 350.1.13.10 it y of [place] 4.2.7.2.686 [place] [id number] [address] OFFICE [facility] 2021-08-21 2021-08-21 Telephone Farzana, [facility] 1.2.136.761 [id number] Univers 00:00:00 00:00:00 Blessing A HEALTH 350.1.13.10 i ty of [place] 4.2.7.2.686 Adrien as BORIS?BLEA [phone] [address] OFFICE BUILDING 2021-08-21 2021-08-21 Telephone Khan, [facility] 1.2.357.614 [id number] Univers 00:00:00 00:00:00 Alfred HEALTH 350.1.13.10 it y of [place] 4.2.7.2.686 Adrien as BORIS?BLEA [id number] Me [address] OFFICE [facility] 2021-08-21 2021-08-21 Patient Doctor [facility] 1.2.840.114 [id number] Univers 00:00:00 00:00:00 Secure Msg Unassigned, HEALTH 350.1.13.10 ity of [place] 4.2.7.2.686 Adrien as BORIS?BLEA [id number] [address] OFFICE [facility] 2021-08-18 2021-08-18 Outpatient [facility] [id number] Univers 09:15:00 09:15:00 ARELY ity o f [facility] 2021-08-18 2021-08-18 Outpatient R [facility] [id number] Univers 09:15:00 09:15:00 ARELY ity o f [facility] 2021-08-18 2021-08-18 Telephone [facility] 1.2.735.278 [id number] Univers 00:00:00 00:00:00 Blessing A HEALTH 350.1.13.10 i ty of [place] 4.2.7.2.686 Adrien as BORIS?BLEA [id number] [address] 2021-08-17 2021-08-17 Outpatient R [facility] [id number] Univers 13:00:00 13:00:00 GRISELDA OLVERAILL [facility] 2021-08-17 2021-08-17 Outpatient R [facility] [id number] Univers 13:00:00 13:00:00 ATARAFIA STRAHIL ity [facility] 2021-08-17 2021-08-17 Outpatient R [facility] [id number] Univers 13:00:00 13:00:00 WADE [facility] 2021-08-17 2021-08-17 Telephone [facility] 1.2.356.508 [id number] Univers 00:00:00 00:00:00 Alfred HEALTH 350.1.13.10 it y of [place] 4.2.7.2.686 Adrien as BORIS?BLEA [phone] Al susanna ROWAN 044 [facility] OFFICE [facility] 2021-08-17 2021-08-17 Refmarah [facility] 1.2.840.114 [id number] Univers 00:00:00 00:00:00 Blessing Herr [facility] 350.1.13.10 i ty of [place] 4.2.7.2.686 Adrien as BORIS?BLEA [phone] [facility] 044 [facility] 2021-08-16 2021-08-16 Outpatient R CARLO [facility] [id number] Univers 12:00:00 12:00:00 [facility] 2021-08-16 2021-08-16 [facility] [id number] Univers 12:00:00 12:00:00 [facility] 2021-08-16 2021-08-16 Outpatient R [facility] [id number] Univers 12:00:00 12:00:00 [facility] 2021-08-16 2021-08-16 Telephone [facility] 1.2.840.114 [id number] Univers 00:00:00 00:00:00 Soha CARLOS 350.1.13.10 i ty of [place].2.7.2.686 [place] [id number] Al susanna [facility] 188 [facility] 2021-08-14 2021-08-14 Outpatient R SINDY ONEILL [facility] [id number] Univers 15:18:48 23:59:00 SINDY ONEILL [facility] 2021-08-14 2021-08-14 Outpatient R SINDY ONEILL [facility] [id number] Univers 15:18:48 23:59:00 SINDY ONEILL [facility] 2021-08-10 2021-08-10 Outpatient R ABILIO [facility] [id number] Univers 15:00:00 15:45:32 SOHA [facility] 2021-08-10 2021-08-10 Office [facility] 1.2.491.015 [id number] Univers 15:00:00 15:45:32 Visit Soha CARLOS 350.1.13.10 i ty [facility] 4.2.7.2.686 [place] [id number] Al dical NAL [address] [facility] 2021-08-10 2021-08-10 Outpatient R [facility] [id number] Univers 15:00:00 15:45:[address] [facility] 2021-08-10 2021-08-10 Outpatient R [facility] [id number] Univers 15:00:00 15:45:[address] [facility] 2021-08-10 2021-08-10 Outpatient R [facility] [id number] Univers 15:00:00 15:00:[address] [facility] 2021-08-09 2021-08-09 Refmarah [facility] 1.2.840.114 [id number] Univers 00:00:00 00:00:00 Kay BARR 350.1.13.10 ity of [place].2.7.2.686 [place] C[place] [id number] [address] [facility] 2021-08-09 2021-08-09 Isabella Bush [facility] 1.2.840.114 [id number] Univers 00:00:00 00:00:00 Kay DARBYPEC 350.1.13.10 it[place] of [place].7.2.686 [place] [id number] [address] [facility] 2021-08-09 2021-08-09 Isabella Carlson [facility] 1.2.840.114 [id number] Univers 00:00:00 00:00:00 Unassigned, PRIMARY 350.1.13.10 ity of [place] 4.2.7.2.686 [place] [id number] Al dical [address] 2021-08-04 2021-08-04 Patient [facility] 1.2.840.114 [id number] Univers 00:00:00 00:00:00 Secure Msg Blessing A HEALTH 350.1.13.10 ity of [place] 4.2.7.2.686 Adrien as BORIS?BLEA [phone] [address] MEDICAL OFFICE BUILDING 2021-08-04 2021-08-04 Patient [facility] 1.2.840.114 [id number] Univers 00:00:00 00:00:00 Secure Msg Blessing A HEALTH 350.1.13.10 ity of [place] 4.2.7.2.686 Adrien as BORIS?BLEA [phone] [address] MEDICAL OFFICE [facility] 2021-08-02 2021-08-02 Office MELIZA Oneill 1.2.281.572 [id number] Univers 11:30:00 11:30:00 Visit Sindy Murphy HEALTH 350.1.13.[address] [facility] 4.2.7.2.686 [place] [id number] [facility] 0[address] [place] 2021-08-02 2021-08-02 Outpatient R SINDY ONEILL [facility] [id number] Univers 11:30:00 11:24:07 SINDY ONEILL joie [facility] 2021-07-28 2021-07-28 Outpatient R SINDY ONEILL [facility] [id number] Univers 13:00:00 13:00:[address] [facility] 2021-07-26 2021-07-26 Outpatient R [facility] [id number] Univers 15:20:22 23:59:00 BLESSING ity [facility] 2021-07-26 2021-07-26 [facility] 1.2.840.114 [id number] Univers 15:00:00 23:59:00 Encounter Blessing Herr [place] 350.1.13.10 ity of [place] 4.2.7.2.686 [place] [id number] [facility] 801 [place] 2021-07-21 2021-07-21 Outpatient R [facility] [id number] Univers 14:30:00 15:16:04 BLESSING ity [facility] 2021-07-19 2021-07-19 Outpatient R FARZANA [facility] [id number] Univers 09:00:00 09:00:00 BLESSING donnelly [facility] 2021-07-14 2021-07-14 Outpatient Sofia YANES [facility] [id number] Univers 10:00:00 11:07:33 BLESSING donnelly [facility] 2021-07-14 2021-07-14 Orders Doctor ALEM 1.2.840.114 [id number] Univers 00:00:00 00:00:00 Only Unassigned, LUIS ARMANDO 350.1.13.10 ity of [facility] 4.2.7.2.686 Adrien as [id number] [address] 2021-07-12 2021-07-12 Outpatient Sofia DEAN [facility] [id number] Univers 10:00:00 10:00:00 JUVE donnelly [facility] 2021-02-12 2021-02-12 Outpatient PRIV PRIV [id number] 1-2 [facility] 00:00:00 00:00:00 [id number] Medica l 2021-02-12 2021-02-12 Outpatient PRIV PRIV [id number] 1-2 [facility] 00:00:00 00:00:00 [id number] Medica l 2020-12-06 2020-12-06 Outpatient PERLA BLOCK [id number] Perla 10:45:00 10:45:00 ELLIOT obrien 2020-07-30 2020-07-30 Laboratory Lab, Adc Fam Pob I [facility] 1.2. 840.114 [id number] Univers 16:14:44 16:34:44 Only Matt Culver [facility] 350.1.13.10 ity of [place] 4.2.7.2.686 Adrien as Professio [id number] [address] Office [facility] 2020-07-30 2020-07-30 Outpatient Sofia CULVER [facility] [id number] Univers 16:00:00 16:00:00 MATT [facility] 2020-07-28 2020-07-28 Patient [facility] 1.2.840.114 [id number] Univers 00:00:00 00:00:00 Outreach Joel PRIMARY 350.1.13.10 i ty of [place] CARE 4.2.7.2.686 Maritza weston PAVILLION [id number] Al dical [address] 2020-05-04 2020-05-04 Emergency ER OWO, EDDS [facility] [id number] [place] 16:03:00 18:07:00 -[id number] [facility] 2020-05-01 2020-05-01 Emergency ER RUPERT, [facility] [id number] [place] 14:12:00 18:16:00 BAO -[id number] [facility] 2020-04-20 2020-04-21 Emergency ER , [facility] [id number] [place] 22:53:00 00:07:00 WASIM -[id number] [facility] 2020-04-04 2020-04-04 [facility] 1.2.840.114 [id number] Univers 00:00:00 00:00:00 [facility] PRIMARY 350.1.13.10 ity of CARE 4.2.7.2.686 Maritza s PAVILLION [id number] Al dical [address] 2020-04-04 2020-04-04 [facility] 1.2.840.114 [id number] 00:00:00 00:00:00 [facility] PRIMARY 350.1.13.10 CARE 4.2.7.2.686 PAVILLION [id number] 389 2020-03-18 2020-03-18 Outpatient FERGUSON_JO GAHOP [facility] 814 [place] 00:00:00 00:00:00 HN 1106 [facility] 2020-03-14 2020-03-14 Outpatient FERGUSON_JO MEHOP GAHOP [address]14 [place] 04:45:00 04:45:00 HN 1102 [facility] 2020-02-29 2020-02-29 Outpatient Sofia [facility] [id number] Univers 08:45:00 08:45:00 ARELY pickering [facility] 2020-02-26 2020-02-26 Emergency ER OWO, TOKS [facility] [id number] [place] 10:15:00 12:20:00 -[id number] [facility] 2020-02-26 2020-02-26 Outpatient FERGUSON_JO MEHOP GAHOP 814 [place] 09:48:00 09:48:00 HN 1016 [facility] 2020-02-25 2020-02-25 Outpatient FERGUSON_JO MEHOP MEHOP 814 [place] 01:22:00 01:22:00 HN 1015 [facility] 2020-02-19 2020-02-20 Emergency ER AVALOS, [facility] [id number] [place] 21:17:00 03:38:00 DOMINGO -[id number] [facility] 2020-02-17 2020-02-17 Outpatient SEAN GUILLERMO [facility] [id number] [facility] 11:00:00 11:00:00 ity of [facility] 2020-02-10 2020-02-10 Emergency ER OWO, TOKS [facility] [id number] [place] 16:26:00 19:59:00 -[id number] [facility] 2019-12-31 2019-12-31 Emergency ER OWO, TOKS [facility] [id number] [place] 17:19:00 19:23:00 -[id number] [facility] 2019-11-26 2019-11-26 Emergency ER SAIFI, [facility] [id number] [place] 09:27:00 11:17:00 LORENE -[id number] [facility] 2019-11-20 2019-11-20 Telephone [facility] 1.2.479.031 [id number] Univers 00:00:00 00:00:00 Leandro Deras PRIMARY 350.1.13.10 ity of CARE 4.2.7.2.686 Maritza GUPTA [id number] [address] 2019-11-20 2019-11-20 Telephone [facility] 1.2.759.248 [id number] 00:00:00 00:00:00 Leandro Deras PRIMARY 350.1.13.10 CARE 4.2.7.2.686 PAVILLION [id number] 389 2019-11-13 2019-11-13 Telephone Jesse [facility] 1.2.968.771 [id number] Univers 00:00:00 00:00:00 Leandro Deras PRIMARY 350.1.13.10 ity of [place] 4.2.7.2.686 [place] [id number] [facility] [address] [place] 2019-11-13 2019-11-13 Telephone [facility] 1.2.173.716 [id number] 00:00:00 00:00:00 Leandro Deras PRIMARY 350.1.13.10 CARE 4.2.7.2.686 PAVILLION [id number] 389 2019-10-28 2019-10-28 Outpatient R UNKNOWN, [facility] [id number] Univers 10:40:00 10:40:00 ATTENDING ity of [facility] 2019-09-29 2019-09-29 Patient Doctor [facility] 1.2.840.114 [id number] 00:00:00 00:00:00 Secure Msg Unassigned, PRIMARY 350.1.13.10 [place] CARE 4.2.7.2.686 PAVILLION [id number] 390 2019-09-29 2019-09-29 Patient Doctor [facility] 1.2.840.114 [id number] Univers 00:00:00 00:00:00 Secure Msg Unassigned, PRIMARY 350.1.13.10 ity of [place] CARE 4.2.7.2.[place] [id number] [address] 2019-09-15 2019-09-15 Telephone [facility] 1.2.001.220 [id number] 00:00:00 00:00:00 Leandro Deras PRIMARY 350.1.13.10 CARE 4.2.7.2.686 PAVILLION [id number] 389 2019-09-15 2019-09-15 Telephone [facility] 1.2.388.161 [id number] [facility] 00:00:00 00:00:00 Leandro Deras PRIMARY 350.1.13.10 ity of [place] 4.2.7.2.686 [place] [id number] Al dical [address] 2019-09-10 2019-09-10 Shaper Hand [facility]-Lab [facility] 1.2.840.114 [id number] 12:34:34 12:44:34 Visit MULTISPEC 350.1.13.10 IALTY 4.2.7.2.686 CENTER [id number] [place] [address] [facility]ES CLIN[facility] 2019-09-10 2019-09-10 Shaper Hand Vt-Lab [facility] 1.2.840.114 [id number] [facility] 12:34:34 12:44:34 Visit Samir Conner MULTISPEC 350.1.13.10 ity of [place] 4.2.7.2.686 [place] CENTER [id number] [facility] AND [address] DIABETES [facility] 2019-09-10 2019-09-10 Outpatient R SAMIR CONNER [facility] [id number] [facility] 12:40:00 12:40:00 ity of [facility] 2019-08-18 2019-08-18 Patient Jesse, [facility] 1.2.840.114 [id number] 00:00:00 00:00:00 Secure Msg Leandro Deras PRIMARY 350.1.13.10 CARE 4.2.7.2.686 PAVILLION [id number] 390 2019-08-18 2019-08-18 Patient Jesse [facility] 1.2.840.114 [id number] Univers 00:00:00 00:00:00 Secure Msg Leandro Deras PRIMARY 350.1.13.10 ity of [place] 4.2.7.2.686 [place] [id number] Al dical [address] 2019-08-17 2019-08-17 Patient Doctor [facility] 1.2.840.114 [id number] 00:00:00 00:00:00 Secure Msg Unassigned, PRIMARY 350.1.13.10 [place] CARE 4.2.7.2.686 PAVILLION [id number] 389 2019-08-17 2019-08-17 Patient Doctor [facility] 1.2.840.114 [id number] Univers 00:00:00 00:00:00 Secure Msg Unassigned, PRIMARY 350.1.13.10 ity of [place] CARE 4.2.7.2.686 [place] [id number] Al dical [address] [place] 2019-08-14 2019-08-14 Outpatient R UNKNOWN, [facility] [id number] Univers 12:10:00 12:10:00 ATTENDING ity [facility] 2019-08-14 2019-08-14 Shaper Hand Pcp-Lab [facility] 1.2.840.114 [id number] 11:02:02 11:12:02 Visit PRIMARY 350.1.13.10 CARE 4.2.7.2.686 PAVILLION [id number] 366 2019-08-14 2019-08-14 Shaper Hand Pcp-Lab [facility] 1.2.840.114 [id number] Univers 11:02:02 11:12:02 Visit Unknown, Attending PRIMARY 350.1.13.10 ity of [place], Israa CARE 4.2.7.2.686 [place] PAVILLION [id number] [facility] [address] [place] 2019-08-12 2019-08-12 [facility] 1.2.840.114 [id number] 14:32:03 15:02:03 ne Visit Salvatore PRIMARY 350.1.13.10 CARE 4.2.7.2.686 PAVILLION [id number] 390 2019-08-12 2019-08-12 [facility] Pb [facility] 1.2.840 .114 [id number] Univers 14:32:03 15:02:03 ne Visit Unknown, Attending PRIMARY 350.1.13.1 0 ity of [place] 4.2.7.2.686 [place] [id number] [facility] [address] [place] 2019-08-12 2019-08-12 Outpatient R UNKNOWN, [facility] [id number] Univers 14:50:00 14:50:00 ATTENDING ity [facility] 2019-08-12 2019-08-12 Telephone Jesse [facility] 1.2.259.226 [id number] 00:00:00 00:00:00 Leandro Deras PRIMARY 350.1.13.10 CARE 4.2.7.2.686 PAVILLION [id number] 389 2019-08-12 2019-08-12 Telephone [facility] 1.2.110.796 [id number] Univers 00:00:00 00:00:00 Leandro Deras PRIMARY 350.1.13.10 ity of [place] 4.2.7.2.686 [place] [id number] Al dical [address] [place] 2019-08-07 2019-08-10 [facility] 1.2.840.114 [id number] 08:31:45 15:00:40 ne Visit Kay DARBYPEC 350.1.13.10 IALTY 4.2.7.2.686 SLEMP [id number] [place] [address] [facility] 2019-08-07 2019-08-10 [facility]ici [facility] 1.2.840.114 [id number] Univers 08:31:45 15:00:40 ne Visit Kay BARR 350.1.13.10 ity of [place] 4.2.7.2.686 [place] CENTER [id number] [facility] AND [address] DIABETES CLINIC 2019-08-07 2019-08-07 Outpatient R RACHELLE [facility] [id number] Univers 10:30:00 10:30:00 KAY pickering [facility] 2019-08-04 2019-08-04 Outpatient R BRIAN [facility] [id number] Univers 11:00:00 11:00:00 cony HAT[place] of [place] [facility] 2019-08-04 2019-08-04 Telemedici Johan Alexander [facility] 1.2.84 0.114 [id number] Univers 07:35:13 08:05:13 ne Visit Trell Villagomez Y HEALTH 350.1.13 .10 ity of Mame Ny [facility] 4.2.7.2.68 6 [place] [id number] [facility] lula [address] 2019-08-04 2019-08-04 Telephone Catherine, [facility] 1.2.840.114 [id number] Univers 00:00:00 00:00:00 Johan Y HEALTH 350.1.13.10 i ty of CLINICS 4.2.7.2.686 [place] [id number] [facility] [address] 2019-08-04 2019-08-04 Orders Doctor ALEM 1.2.840.114 [id number] Univers 00:00:00 00:00:00 Only Unassigned, LUIS ARMANDO 350.1.13.10 ity of [place] HOSPITAL 4.2.7.2.686 Adrien as [id number] [facility] [address] 2019-08-03 2019-08-03 [facility] 1.2.840.114 [id number] Univers 00:00:00 00:00:00 Mostafa MULTISPEC 350.1.13.10 ity of [place] Rodriguez IALTY 4.2.7.2.686 [facility] [id number] [facility] AND [address] DIABETES CLINIC 2019-08-03 2019-08-03 Refill [facility] 1.2.840.114 [id number] Univers 00:00:00 00:00:00 Mostafa MULTISPEC 350.1.13.10 ity of Sil[place]ristina Rodriguez IALTY 4.2.7.2.686 [facility] [id number] [facility] AND [address] [facility] 2019-08-03 2019-08-03 [facility]phone [facility] [id number] Univers 00:00:00 00:00:00 Leandro Deras PRIMARY 350.1.13.10 [place] [id number] Al dical [address] [place] 2019-08-03 2019-08-03 [facility]phone [facility] [id number] Univers 00:00:00 00:00:00 Kay Francis MULTISPEC 350.1.13.10 [place] [id number] [facility] AND [address] [facility]ABETES [facility]INIC 2019-07-20 2019-07-20 Emergency ER MERRICK [facility] [id number] [place] 20:16:00 21:34:00 SHANNEN -[id number] [facility] 2019-06-23 2019-06-23 Emergency ER JAZMIN, [facility] [id number] [place] 15:06:00 17:30:00 ALYSSA -[id number] [facility] 2019-06-05 2019-06-05 Emergency ER RUPERT, [facility] [id number] [place] 16:39:00 19:48:00 BAO -[id number] [facility] 2019-06-05 2019-06-05 [facility] [id number] Univers 00:00:00 00:00:00 henok, Juan Y 350.1.13.10 ity of NATIONAL 4.2.7.2.686 Adrien as BANK [phone] [facility] [address] 2019-05-19 2019-05-19 [facility] 1.2.840.114 [id number] Univers 00:00:00 00:00:00 Assessment henokJuan Y 350.1.13.10 ity of NATIONAL 4.2.7.2.686 Adrien as BANK [id number] [facility] 2019-03-05 2019-03-05 Outpatient Young_J [facility] [id number] [place] 03:44:00 03:44:00 024 Medical Group 2019-03-01 2019-03-01 Emergency ER TRELL, [facility] [id number] [place] 15:15:00 18:55:00 PATI [id number] [facility] 2019-01-26 2019-01-26 Telephone [facility] [id number] [id number] Univers 00:00:00 00:00:00 Leandro Deras PRIMARY 350.1.13.10 ity of CARE 4.2.7.2.686 [place] [phone] Al dical [address] 2019-01-21 2019-01-21 Emergency ER RUPERT, [facility] [id number] [place] 17:43:00 20:38:00 BAO -[id number] [facility] 2018-12-30 2018-12-30 Office Elver Cyr [facility] 1.2 .840.114 [id number] Univers 14:33:52 16:12:24 Visit Unknown, Attending PRIMARY [id number] ity of LashaySean Sreedhar [facility] 4.2.7.2.686 [facility] [id number] Al dical [address] 2018-12-12 2018-12-12 Orders Doctor ALEM 1.2.840.114 [id number] Univers 00:00:00 00:00:00 Only Unassigned, LUIS ARMANDO 350.1.13.10 ity of [facility] 4.2.7.2.686 Adrien as [phone] [facility] 009 Branch 2018-12-05 2018-12-05 Transition Blaine Longo 1.2.840.114 [id number] Univers 00:00:00 00:00:00 of Care Nicky Hicks 350.1.13.10 it [place].2.[place] [id number] [facility] [address] 2018-12-02 2018-12-04 Hospital Mary Howell 1.2.840.114 [id number] Univers 00:29:00 19:45:00 Encounter Mikey Marquezy 35 0.1.13.10 ity of Emiliano Cheung [facility] 4.2.7.2.686 [place] [id number] [facility] 090 Branch 2018-12-04 2018-12-04 Telephone Alvarez [facility] 1.2.840.114 [id number] Univers 00:00:00 00:00:00 [facility] 350.1.13.10 it y of Silas Rodriguez [place] 4.2.7.2.686 [place] [facility] [phone] [facility] Primary & 059 [address] Specialty Care 2018-12-02 2018-12-02 Orders Doctor FERRARA 1.2.840.114 [id number] Univers 00:00:00 00:00:00 Only Unassigned, LUIS ARMANDO 350.1.13.10 ity of [facility] 4.2.7.2.686 Adrien as [phone] [facility] 009 Branch 2018-11-29 2018-12-01 Inpatient ER Elina, [facility] [id number] [place] 19:48:00 23:00:00 Sean -[id number] [facility] 2018-11-28 2018-11-29 Emergency ER MERRICK, [facility] [id number] [place] 20:53:00 01:14:00 SHANNEN -[id number] [facility] 2018-04-03 2018-04-03 Emergency ER JAZMIN, [facility] [id number] [place] 19:12:00 21:48:00 ALYSSA -[id number] [facility] 2017-07-31 2017-07-31 Emergency E [facility] MED [id number] Medical 19:16:00 19:16:00 [facility] 2017-05-30 2017-05-30 AURELIA [facility] 3 [id number] [place] 13:00:00 13:00:00 t; Jinny FONTAINE Ph greg Reid M.D. 2017-04-23 2017-04-23 AURELIA Knutson [facility] [id number] [place] 09:15:00 09:15:00 t; Jinny FONTAINE Ph greg Reid M.D. 2013-08-09 2013-08-09 Emergency ER RICHARD BRYAN [facility] [id number] [place] 19:09:00 22:27:00 -[id number] [facility] 2013-05-11 2013-05-11 Emergency ER MEDINA, [facility] [id number] 61 [place] 02:30:00 05:46:00 WASIM -[id number] [facility] 2013-04-18 2013-04-18 Emergency ER UGORJI, [facility] [id number] 61 [place] 01:08:00 04:45:00 JUMANA -[id number] [facility] 2013-03-26 2013-03-26 Outpatient EL D'ANN, [facility] [id number] [place] 09:38:00 09:38:00 MATT -[id number] [facility] 2013-03-09 2013-03-09 Emergency ER DONOVAN, [facility] [id number] [place] 19:03:00 20:05:00 MIKAELA -[id number] [facility] 2012-12-04 2012-12-06 Inpatient ER D'ANN, [facility] MED [id number] 61 [place] 21:36:00 14:11:00 MATT -[id number] [facility] 2012-12-01 2012-12-02 Emergency ER JOSSELINE BRYANG [facility] [id number] [place] 22:29:00 01:22:00 -[id number] [facility] 2012-11-27 2012-11-27 Outpatient UR TARSHA, [facility] [id number] [place] 10:49:00 10:49:00 [place] -[id number] [facility] 2012-11-18 2012-11-18 Emergency ER UGORJI, [facility] [id number] 61 [place] 12:50:00 15:39:00 [facility] -[id number] [facility] 2012-08-01 2012-08-01 Emergency ER UGORJI, [facility] [id number] 61 [place] 17:26:00 20:49:00 [facility] -[id number] [facility] 2012-07-19 2012-07-19 Emergency ER JERSEY, [facility] [id number] [address] [place] 14:19:00 15:44:00 [facility] -[id number] [facility] 2012-07-10 2012-07-10 Outpatient ELI Abdul, [facility] [id number] [place] 07:04:00 07:04:00 Talat -[id number] [facility] 2012-06-06 2012-06-06 Outpatient EL D'ANN, [facility] [id number] [place] 13:17:00 13:17:00 [facility] -[id number] [facility] 2012-06-05 2012-06-06 Emergency ER UGORJI, [facility] [id number] 61 [place] 20:38:00 02:50:00 CLEDARRICK -[id number] [facility] 2012-05-28 2012-06-01 Inpatient EL D'ANN, [facility] [id number] 61 [place] 17:00:00 10:27:00 MATT -[id number] [facility] 2012-03-09 2012-03-09 Emergency ER Taya, [facility] [id number] [place] 21:25:00 22:48:00 Driss -[id number] [facility] 2012-02-29 2012-02-29 Outpatient EL D'ANN, [facility] [id number] [place] 15:16:00 15:16:00 MATT -[id number] [facility] 2012-01-12 2012-01-12 Emergency ER GERMANIA, [facility] [id number] [place] 19:42:00 23:53:00 JUMANA -[id number] [facility] 2011-08-14 2011-08-14 Outpatient EL D'ANN, [facility] [id number] [place] 11:58:00 11:58:00 [id number] [facility] 2011-04-26 2011-04-26 Outpatient EL D'ANN, [facility] [id number] [place] 14:29:00 14:29:00 [id number] [facility] 2010-10-18 2010-10-19 Emergency ER UGMEG, [facility] [id number] 61 [place] 20:52:00 01:50:00 [facility] -[id number] [facility] 2010-10-13 2010-10-16 Inpatient EL D'ANN, [facility] [id number] 61 [place] 18:28:00 20:15:00 [id number] [facility] 2010-09-12 2010-09-14 Inpatient EL D'ANN, [facility] [id number] [address] [place] 12:12:00 13:45:00 [id number] [facility] Results Test Description Test Time Test Comments Results Result Comments Source GLUBED 2018-08-14 11:32:00 Test Item Value Reference Range Interpretation Comme nts GLUBED (test code = GLUBED) 155 mg/dL 70-110 H BASIC METABOLIC [id number] 06:26:00 Test Item Value Reference Range Interpretation [...] CA) 8.0 mg/dl 8.0-10.5 N CBC W/AUTO [id number] 06:04:00 Test Item Value Reference Range Interpretation [...] code = BA#) 0.1 K/mm3 0.0-0.2 N [id number] 05:50:00 Test Item Value Reference Range Interpretation Comments GLUBED (test code = GLUBED) 163 mg/dL 70-110 H [id number] 00:32:00 Test Item Value Reference Range Interpretation Comments GLUBED (test code = GLUBED) 216 mg/dL 70-110 H [id number] 05:57:00 Test Item Value Reference Range Interpretation Comments GLUBED (test code = GLUBED) 147 mg/dL 70-110 H [id number] 00:14:00 Test Item Value Reference Range Interpretation Comments GLUBED (test code = GLUBED) 169 mg/dL 70-110 H [id number] 16:32:00 Test Item Value Reference Range Interpretation Comments GLUBED (test code = GLUBED) 132 mg/dL 70-110 H [id number] 11:51:00 Test Item Value Reference Range Interpretation Comments GLUBED (test code = GLUBED) 170 mg/dL 70-110 H CARDIAC ENZYMES [id number] 08:23:00 Test Item Value Reference Range Interpretation Comments CREATINE KINASE (CK) 28 Units/L 39-308 L (test code = CK) TROPONIN-I (test code <0.02 NG/ML 0.00-0.06 N REFERE NCE RANGE = TROPI) TROPONIN I HEAL THY INDIVIDUALS: <0 .06 ng/mL R/O ISCHE AKHIL: 0.07 - 0.60 ng/ mL CUT-OFF RANGE F OR AMI: 0.60 - 1.5 ng/mL - XR CHEST 1 [id number] 06:38:00 FAX: Sky Valente MD [phone] [place]: St: ADM FAX: Chilango Dobbs [phone] ------ Name: SUDHEER JUAREZ [facility] : 1970 Age/S: 47/M [address] [facility] Unit #: [id number] Loc: [address] [place] [address] Phys: Chilango Vigil [address] Acct: [id number] Dis Date: Status: ADM IN PHONE #:[phone] Exam Date: 08/12/2018635 FAX #: [phone] Reason: CHEST PAIN EXAMS: CPT CODE: [id number] XR CHEST 1 V 79223 Location: U19. CHEST, FRONTAL VIEW HISTORY: CHEST PAIN COMPARISON: Chest x-ray 05/17/18. FINDINGS: The lungs are clear without consolidation. No pleural effusion or pneumothorax. The heart size is normal. The bones are unremarkable. IMPRESSION: No evidence of acute cardiopulmonary disease. at 0638 Reported and signed by: Augusta Remy M.D. CC: Sky Bartholomew MD; Chilango BE Technologist: KAREN CEE Trnscrd Date/Time/By: 08/12/2018 (0638) : By: [email or web address] PAGE 1 Signed Report FAX: Sky Valente MD [phone] [place]: St: ADM FAX: Chilango Dobbs [phone] Name: SUDHEER JUAREZ [facility] : 1970 Age/S: 47/M [address] [facility] Unit #: [id number] Loc: [address] Phys: Chilango Vigil [address] Acct: [id number] Dis Date: Status: ADM IN PHONE #: [phone] Exam Date: 08/12/2018635 FAX #: [phone] Reason: CHEST PAIN EXAMS: CPT CODE: [id number] XRCHEST 1 V 49604 (Continued) Orig Print D/T: S: 08/12/2018 (0641) PAGE 2 Signed [id number] 05:48:00 Test Item Value Reference Range Interpretation Comments GLUBED (test code = GLUBED) 155 mg/dL 70-110 H [id number] 04:15:00 Test Item Value Reference Range Interpretation Comments GLUBED (test code = GLUBED) 195 mg/dL 70-110 H [id number] 16:15:00 Test Item Value Reference Range Interpretation Comments GLUBED (test code = GLUBED) 210 mg/dL 70-110 H URINALYSIS [id number] 13:21:00 Test Item Value Reference Range Interpretation [...] = MUCU) TRACE DRUGS OF ABUSE SCREEN [id number] 13:20:00 Test Item Value Reference Interpretation Comments [...] = [place]) concentrati on: 300 ng/mL URINALYSIS [id number] 13:17:00 Test Item Value Reference Range Interpretation [...] UA BACTERIA (test code = NONE BACU) [id number] 11:54:00 Test Item Value Reference Range Interpretation Comments HGBA1C% (test code = HGBA1C%) 5.7 %A1C 4.8-6.0 N ESTIMATED AVERAGE GLUCOSE (test 117 MG/DL code = EAG) [id number] 11:19:00 Test Item Value Reference Range Interpretation Comments GLUBED (test code = GLUBED) 225 mg/dL 70-110 H COMPREHENSIVE METABOLIC [id number] 07:52:00 Test Item Value Reference Range Interpretation [...] 50.0-136.0 N code = ALKP) Comments to Supervisor [employer]: Patient is currently in the ED waiting [...] LDL) 128 mg/dl 70-130 N Comments to Supervisor [employer]: Patient is currently in the ED waiting on a bed [id number] 07:52:00 Test Item Value Reference Range Interpretation Comments MAGNESIUM (test code = MAG) 1.9 mg/dl 1.8-2.4 N Comments to [employer]visor [employer]: Patient is currently in the ED waiting on a bedCBC W/AUTO [id number] 07:31:00 Test Item Value Reference Range Interpretation [...] BA#) 0.0 K/mm3 0.0-0.2 N Comments to [employer]visor [employer]: Patient is currently in the ED waiting on a bedGLUBED 2018-08-11 05:55:00 Test Item Value Reference Range Interpretation Comments GLUBED (test code = GLUBED) 215 mg/dL 70-110 H [id number] 00:35:00 Test Item Value Reference Range Interpretation Comments GLUBED (test code = GLUBED) 260 mg/dL 70-110 H COMPREHENSIVE METABOLIC [id number] 18:48:00 Test Item Value Reference Range Interpretation [...] 50.0-136.0 N code = ALKP) COMPREHENSIVE METABOLIC [id number] 18:41:00 Test Item Value Reference Range Interpretation [...] (test Units/L 50.0-136.0 code = ALKP) PROTHROMBIN [id number] 18:36:00 Test Item Value Reference Range Interpretation Comments PROTHROMBIN TIME 12.6 SECONDS 9.9-12.8 N PATIENT (test code = PTP) INTERNATIONAL NORMAL 1.1 0.89-1.14 N THE INR IS TO BE USED RATIO (test code = ONLY FOR MONITORING INR) ORAL ANTICOAGULANTTH ERAPY. THE FOLLOWING A RE SUGGESTED RANGE S FROM [facility] LEGE OF CHEST PHYSICIANS:REJI CATION INR VALUEPROPHY LAXIS OF VENOUS THROM BOSIS (ORTHOPEDIC RENNY TA) 2.0 - 3.0PROPHY LAXIS OF VENOUS THROM BOSIS (OTHER THAN HIG H-RISK SURGERY) 2.0 - 3.0TREATMENT OF DEEP VEIN THROMBOSIS OR PULMONARY EMBOL ISM 2.0 - 3.0PREVEN TION OF SYSTEMIC EMBOLI SM TISSUE HEART VA LVES 2.0 - 3.0 ACUTE MYOCARDIAL INFA RCTION (TO PREVENT SYS TEMIC EMBOLISM) 2.0 - 3.0 ACUTE MYOCARDIA L INFARCTION (TO PREVENT RECURRENT INFAR CT) 2.5 - 3.0 VALVULAR HEART DISEASE 2.0 - 3 .0 ATRIAL FIBRILAT ION 2.0 - 3.0BILEAF LET MECHANICAL VALV E IN AORTIC POSITION 2.0 - 3.0MECHANICAL PROSTHETIC VALV ES (HIGH RISK) 2.5 - 3.5PRESENCE OF LUPUS ANTICOAGULANT O R ANTIPHOSPHOLIPI D ANTIBODIES 2.5 - 3.5 CBC W/AUTO [id number] 18:31:00 Test Item Value Reference Range Interpretation [...] K/mm3 0.0-0.2 N - CT L-SPINE W/O [id number] 18:03:00 FAX: Sagar Troncoso MD [phone] [place]: St: REG Name: SUDHEER JUAREZ [facility] : 1970 Age/S: 47/M [address] [facility] Unit: [id number] [place]: [place] Phys: Sagar Peters [facility] [address] Acct: [id number] Dis Date: Status: REG ER PHONE #: [phone] Exam Date: 08/10/2018 4932 FAX #: [phone] Reason: acute injury, Hx L3-4 fusion EXAMS: CPT CODE: [id number] CT L-SPINE W/OCONTRAST 32760 EXAM: CT LUMBAR SPINE WITHOUT CONTRAST INDICATION: [...] The vertebral bodies are normal in height, a lignment and density. The facet joints and spinous processes are in normal alignment. There is diffuse facet joint arthropathy. There are erosive changes at the facet joints at L4-L5 bilaterally which has progressed since the prior examination. There is loss of the intervertebral disc height throughout the lumbar spine. The paraspinal soft tissues are normal. Imaged portion of the abdomen is unremarkable. Individual levels: L1-2: No spinal canal or neuroforaminal stenosis. L2-3: No spinal canal or neuroforaminal stenosis. L3-4: Postsurgical changes. No spinal canal or neuroforaminal stenosis. L4-5: No spinal canal stenosis. Facet joint hypertrophy with moderate neuroforaminal stenosis bilaterally. L5-S1: No spinal canal stenosis. Facet joint hypertrophy with moderate neuroforaminal stenosis bilaterally. IMPRESSION: No acute fracture is identified. Erosive changes at the facet joints at L4-L5 bilaterally which has progressed since the prior examination may be secondary to synovitis. PAGE 1 Signed Report (CONTINUED) FAX: Sagar Troncoso MD [phone] [place]: St: REG Name: SUDHEER JUAREZ [facility] : 1970 Age/S: 47/M [address] [facility] Unit: [id number] Loc: [place], [place]: [place] [address] Acct: [id number] Dis Date: Status: REG ER PHONE #: [phone] ExamDate: 08/10/2018 9559 FAX #: [phone] Reason: acute injury, Hx L3-4 fusion EXAMS: CPT CODE: [id number] CT L-SPINE W/O CONTRAST 15468 (Continued) Diffuse discogenic disease and facet joint arthropathy throughout the lumbar spine. Postsurgical changes at L3-L4. Moderate neuroforaminal stenosis at L4-L5 and L5- S1 bilaterally. LOCATION: B2 This CT exam was performed according to our departmental doseoptimization program, which includes automated exposure control, adjustment of the mA and or kV according to patient size and/or use of iterative reconstruction technique. at 1803 Reported and signed by: Leslee Lobo M.D. CC: Sagar Peters MD Technologist: MEHUL AWAN Trnscrd Dt/Tm: 08/10/2018 (994) [email or web address] Orig Print D/T: S: 08/10/2018 (4710 PAGE 2 Signed Report- CT HEAD/BRAIN W/O [id number] 17:56:00 FAX: Sagar Troncoso MD [phone] [place]: St: REG Name: LARRYSUDHEER SIMEON [facility] : 1970 Age/S: 47/M [address] [facility] Unit: [id number] Loc: [place], [place] Phys: Sagar Peters [facility] [address] Acct: [id number] Dis Date: Status: REG ER PHONE #: [phone] Exam Date: 08/10/2018 3045 FAX #: [phone] Reason: acute injury, +LOC EXAMS: CPT CODE: [id number] CT HEAD/BRAIN W/O CONT 98821 CT HEAD WITHOUT CONTRAST. HISTORY: acute injury, +LOC COMPARISON: CT head 01/06/18. TECHNIQUE: Axial CT images of the head were obtained with coronal and/or sagittal reformatted views. Automated exposure control, iterative reconstruction technique, and/or adjustment of mA and/or kV according to patie nt's size was utilized for radiation dose reduction. IV CONTRAST: None. Location: U19. FINDINGS: No intracranial abnormalities such as hemorrhage, mass, mass effect, hydrocephalus, midline shift, extra-axial fluid collection or secondary signs of an acute infarct are noted. The calvarium and skull base are intact. The visualized paranasal sinus and mastoid air cells are clear. IMPRESSION: No evidenceof acute intracranial abnormality. at 1755 Reported and signed by: Augusta Remy M.D. CC: Sagar Peters MD Technologist: MEHUL Huffman Dt/Tm: 08/10/2018 (250) [email or web address] Orig Print D/T: S: 08/10/2018 (4289 PAGE 1 Signed Report- XR T-SPINE 3 [id number] 17:33:00 FAX: Sagar Troncoso MD [phone] [place]: St: REG Name: SUDHEER JUAREZ [facility] : 1970 Age/S: 47/M [address] [facility] Unit #: [id number] Loc: [place], [place]: [place] [address] Acct: [id number] Dis Date: Status: REG ER PHONE #: [phone] Exam Date: 08/10/2018 1729 FAX #: [phone] Reason: acute injury EXAMS: CPT CODE: [id number] XR T-SPINE 3 VIEWS 20079 Site ID: [id number] HISTORY: Acute injury, back pain IMPRESSION: Normal thoracic kyphosis, no acute fracture or subluxation. No significant spondylosis. Visualized ribs are intact. Spinal epidural leads terminate at the T8-T9 level. at 1733 Reportedand signed by: Memo Matos M.D. CC: Sagar Peters MD Technologist: HAI Huffman Date/Time/By: 08/10/2018 (6603) : By: [email or web address] PAGE 1 Signed Report FAX: Sagar Troncoso MD [phone] [place]: St: REG -- Name: SUDHEER JUAREZ [facility] : 1970 Age/S: 47/M [address] [facility]: [id number] Loc: [place], [place]: [place] [address] Acct: [id number] Dis Date: Status: REG ER PHONE #: [phone] Exam Date: 08/10/2018 1729 FAX #: [phone] Reason: acute injury EXAMS: CPT CODE: [id number] XR T-SPINE 3 VIEWS 99699 (Continued) Orig Print D/T: S: 08/10/2018 (9135) PAGE 2 Signed Report[U] XRAY SPINE LUMBOSACRAL MIN 4 VWS [id number] 13:57:00 Test Item Value Reference Range Interpretation Comments XR SPINE LUMBOSACRAL EXAM: XR SPINE MIN 4 VWS (test code = LUMBOSACRAL MIN 4 VWS 64710-4) DATE: 05/30/2017 at 1400 hours. INDICATION: Lower back pain. COMPARISON: None available. TECHNIQUE: AP, lateral, coned lateral, LPO and RPO radiographs of the lumbar spine. FINDINGS:5 nonrib bearing, lumbar-type vertebral bodies are present.A presumed spinal cord stimulator battery pack project over the left hip. Its distal leads are excluded from the yzlkq-co-wdjx.Moderate facet arthropathy is present throughout the mid to lower lumbar spine.There appears to be an intervening disc spacer at the L3-L4 level. IMPRESSION:1. No acute, radiographic abnormality of the lower lumbar spine.2. Advanced facet arthropathy throughout the mid to lower lumbar spine.3. Probable intervening disc spacer at the L3-L4 level. 05/30/2017 2:32 PM ORTHOPEDIC ASSISTANT Lamont Hector [place] Physicians Notes Date/Time Note Provider Source 2018-09-18 10:38:00-00:00 [id number] [facility] and [facility] [address] [place], [place] [address] PATIENT NAME: SUDHEER JUAREZ ADMIT DATE: ACCOUNT NO: [id number] DISCHARGE DATE: 9 ROOM NO: E.438 REPORT TYPE: DISCHARGE SUMMARY DATE OF : AGE: 48 SEX: M ADMITTING PHYSICIAN:Sky Bartholomew MD ATTENDING PHYSICIAN:Sky Bartholomew MD ADMISSION DATE: 08/10/2018 DISCHARGE DATE: 08/14/2018 PRIMARY CARE PHYSICIAN: BJ. REASON FOR ADMISSION: Severe back pain. CONSULTATIONS: 1. Dr. Avila, orthopedics. 2. Pain management, [facility] Valenzuela. HISTORY OF PRESENT ILLNESS AND HOSPITAL COURSE: A 47-year-old patient with known history of chronic back pain who follows w [facility] pain management and has fentanyl pain pump, also wit h history of L3-L4 spinal fusion, also with history of hypertension, diabetes, T IA, hyperlipidemia, lupus, anxiety, presented to the hospital with excruciating back pain. EMS was ca lled. He was brought into the hospital. He denies any incontinence or perineal sensory loss. The patient was diagnosed with zbzxj-kk-qbvmxhx intractable low back pain. Diabetes and hypertension remained stable during this hospitalization. Plavix was continued for history of TIA. He was seen by orthopedics a nd pain management. Pain was controlled with Percocet and IV Dilaudid . Lyrica was continued. PT was ordered for mobilization. MRI was not possible d ue to spinal cord stimulator in place. Slowly, pain improved. The patient was a ble to ambulate and discharged home in a stable condition on 08/14/2018. FOLLOWUP: Follow up with PCP in 1 week, pain man agement in 1 week. ACTIVITY: As tolerated. DISCHARGE DIET: As tolerated, ADA. DISCHARGE TIME: 35 minutes. DISCHARGE EXAMINATION: GENERAL: Alert, oriented x3. CHEST: Clear to auscultation bilaterally. ABDOMEN: Soft, nontender, nondistended. Bowel so unds present. EXTREMITIES: No edema, cyanosis, or clubbing. DIAGNOSTIC STUDIES: CT L-spine negative for acut e fracture. Dictated By: Lakeisha Flaherty MD PATIENT NAME: SUDHEER JUAREZ ACCOUNT #: [id number] WT: DS:E.HIM/SINSI/NTS Conf#: [id number]/DID#: [id number] Authenticated by Lakeisha Flaherty MD On 09/22/2018 02:45:38 PM Electronically Signed by Lakeisha Flaherty MD on 0 09/22/18 at 1445 PATIENT NAME: SUDHEER JUAREZ ACCOUNT #: [id number] 2018-08-16 23:31:00-00:00 [facility] ([facility]) EMERGENCY PROVIDER REPORT REPORT#:[id number] REPORT STATUS: Signed DATE:08/16/18 TIME: 2330 PATIENT: SUDHEER JUAREZ UNIT #: [id number] ROOM/BED: AGE: 47 SEX: M PCP PHYS: No Primary or Family P hysician SERVICE AUTHOR: Rin Simmons [employer] * ALL edits or amendments must be made on the [employer] document * HPI-Back Pain 40 and Over General Confirmed Patient Yes Patient Type Existing patient Initial Greet Date/Time 08/16/18 2311 Assumed Care at Time 2311 Presentation Chief Complaint Pain, lumbar Hx Obtained From Patient Sudden in Onset? No Onset Occurred Today Symptom Duration Since onset Progression since Onset Gradually worsening Caused by No trauma by history Free Text HPI Notes Free Text HPI Notes 47 y/o M with PMHx of DM, an d HTN, PSHx of L3-L4 spinal fusion, presents to the ED c/o lumbar back pain x 3 days. Pt was admitted into the hosital after falling 3 feet x 1 week ago for acut e on chronic lumbar pain, chronic back pain present >1 year. Describes pain as aching.throbbing, at worst 7/10, aggravated with movement and palpation, better with rest and narcotic pain meds, no associated sx's. Pt reports he was switched from pe rcocet to dilaudid 2 days ago, with no releif of pain. Has pain management appo intment in 2 days. Denies neurological defecit, urinary incontinence. Risk-Back Pain 40 and Over Risk Stratification )( Abdominal Aortic Aneurysm Risk factors review ed, Risk factors N/A, No risk factors )( Thoracic Aortic Dissection Risk facto rs reviewed, Risk factors N/A, No risk factors Review of Systems ROS Statements All systems rev neg except as marked. Focused Review of Systems Constitutional Denies: Chills, Fatigue, Fever, Lethargy, Malais e, Recent wt loss, Weakness - generalized. Respiratory Denies: Cough, non-productive, Cough, productive , Dyspnea on exertion, Hemoptysis, Parox nocturnal dyspnea, Pleuritic p ain, Shortness of breath, Wheezing. Cardiovascular Denies: Chest pain, Dyspnea on exertion, Edema, Orthopnea, Palpitations, Parox nocturnal dyspnea, Syncope. GI Denies: Abdominal pain, Anorexia, Belching, Bloo dy/tarry stool, Constipation, Diarrhea, Dysphagia, Hematemesis, Hemato chezia, Mucousy stool, Melena, Nausea, Rectal pain, Vomiting. Male Denies: Dysuria, Flank pain, Hematuria, Incontinence, Nocturia, Penile discharge , Penile lesion, Scrotal swe lling, Testicular pain, Testicular swelling, Urinary frequency, Urinary urgency, Urination decreased, Urination increased. Musculoskeletal Reports: Back pain, Lumbar pain. Denies: Extremi ty pain, Extremity swelling, Joint pain, Joint swelling, Myalgia, Neck pain, Thoracic pain. Hematologic Denies: Adenopathy, Bleeding, Bruising, Petechia e. Neurologic Denies: Abnormal movement, Bladder dysfu nction, Bowel dysfunction, Change LOC, Confusion, Dizziness, Focal weakness, Generalize d weakness, Headache, Lightheaded, Numbness, Problem walking, Seizure, Shaking, Slurred speech, Spinning sensation, Syncope, Tingling, Unable to speak, Vision change. Past Medical History - Adult Stated Complaint FALL BACK PAIN Allergies Coded Allergies: iodine (Severe, CARDIAC ARREST 08/15/18) Converted from Ingredient Allergy: IODINE lorazepam (From ATIVAN) (Intermediate, A NXIETY worsens significantly 08/15/18) per pt he cannont take ativan because it "has t he opposite effect", wires him up more aspirin (Mild, BLEEDING 08/15/18) lisinopril (Mild, COUGHING 08/15/18) ropinirole (From REQUIP) (Mild, DECREASE BP 09/28) Home Medications Active Scripts SERTRALINE (ZOLOFT) 25 MG PO BEDTIME SERTRALINE (ZOLOFT) 25 MG PO BEDTIME #30 TAB Prov: 02/25/18 traZODone (DESYREL) 50 MG PO BEDTIME PRN PRN INS OMNIA traZODone (DESYREL) 50 MG PO BEDTIME PRN PRN IN SOMNIA #30 TAB Prov: 02/25/[address] (NexIUM) 20 MG PO DAILY ESOMEPRAZOLE MAG DR (NexIUM) 20 MG PO DAILY #30 CAP Prov: 02/25/18 METHOCARBAMOL (ROBAXIN) 750 MG PO Q8HR METHOCARBAMOL (ROBAXIN) 750 MG PO Q8HR #30 TAB Prov: 08/13/18 predniSONE 20 MG PO C BK predniSONE 20 MG PO C BK #10 TAB Prov: 08/13/18 Discontinued Scripts traMADol (ULTRAM) 50 MG PO Q4H PRN PRN pain traMADol (ULTRAM) 50 MG PO Q4H PRN PRN pain #20 TABS Prov: 05/13/18 DC: 08/10/18 1750 Change of medication Reported Medications EMPAGLIFLOZIN (JARDIANCE) 25 MG PO DAILY CLOPIDOGREL (PLAVIX) 75 MG PO DAILY PREGABALIN (LYRICA) 200 MG PO TID MONTELUKAST (SINGULAIR) 10 MG PO DAILY metFORMIN (GLUCOPHAGE) 1,000 MG PO BID METOPROLOL SUCC XL (TOPROL XL) 25 MG PO DAILY Review of Nursing Notes Rev avail, and agree Past Medical History: Reports: Diabetes mellitus, Hypertension. Additional Medical History Lupus, No MN, Heart Grafts x2, anxiety Additional Surgical History NO Stents, Spinal Fusion, back surgery Family History: Reports: Hypertension. Alcohol Use Denies EtOH use Drug Use Denies recreational drugs Smoking status for patients 13 years old or olde r: Never Smoker Physical Exam Vital Signs Vital Signs First Documented: Result Date Time Pulse Ox 96 08/16 2306 B/P 164/100 08/16 2306 B/P Mean 121 08/16 2306 O2 Delivery Room air 08/16 2305 Temp 36.9 08/16 2305 Pulse 83 08/16 230 Resp 18 08/16 2305 Last Documented: Result Date Time Pulse Ox 97 08/17 29 B/P 155/80 08/17 29 B/P Mean 105 08/17 29 Temp 36.7 08/17 29 Pulse 80 08/17 29 Resp 18 08/17 29 O2 Delivery Room air 08/16 2305 Review of Vital Signs Reviewed, Vital signs norm al Focused PE General/Const General/Const Awake, Alert, No acute di stress, Well appearing, Well developed , Well hydrated, Well nourished MS Neck Neck Atraumatic, Supple Resp/Chest Respiratory/Chest Atraumatic, Breath sounds NL, Breath sounds = bilat Cardiovascular Cardiovascular Heart rate NL, Regular r hythm, Heart sounds NL, Cap refill not delayed, Peripheral circulation NL Abdomen/GI Abdomen/GI Atraumatic, Soft, Non-tender MS Back Flank/Spine/Paraspinal Lumbar paraspinal tend. MS Lower Extrem Lower Ext/Pelvis/MS Atraumatic, Inspection NL, Full range of motion, No swelling, Non-tender Skin Skin Atraumatic, Color NL, No rash, War m, Dry, Intact, Turgor NL, No swelling Neurologic Neurologic Oriented X3, Speech NL Re-Evaluation MDM Re-Evaluation/Progress #1 Time of Re-Eval 0028 Re-Eval Status Improved Eval Following Treatment Pt. feels better Back Pain MDM Note The patient presented with acute back pain. The patient is now resting comfortably and feels better, is alert, talkativ e, interactive and in no distress. The repeat examination is unremarkable and benign. The patient is neurologically intact and is ambulatory in the ED. The patient has no fever, no bowel or bladder incontinenc e, no saddle anesthesia, and is otherwise alert and well-appearing. The history, physical ex amination, and diagnostics (if any) do not suggest the presence of acute spinal epidural abscess, acute spinal epidural bleed, cauda equina syndrome, abdominal aortic a neurysm, aortic dissection or other process requiring further testing, treatme nt or consultation in the emergency department. The vi ji signs have been stable. The patient's condition is stable and appropriate for discharge. The pat ient will pursue further outpatient evaluation with the primary care phys ician or other designated or consulting physician as indicated in the dischar ge instructions. ED Course Medication(s) Ordered Medication(s) Ordered: Central Nervous System Agents Sig/Mahsa Start time Last Medication Dose Route Stop Time Status Admin Hydromorphone HCl 1 MG ONCE ONE 08/16 2344 DC 0 08/16 IV 08/16 Hydromorphone HCl 1 MG ONCE ONE 08/16 2329 DC SC 08/16 2330 Patient Discharge Departure Vital Signs/Condition Vital Signs First Documented: Result Date Time Pulse Ox 96 08/16 2305 B/P 164/100 08/16 230 B/P Mean 121 08/16 2305 O2 Delivery Room air 08/16 2305 Temp 36.9 08/16 2305 Pulse 83 08/16 2305 Resp 18 08/16 2305 Last Documented: Result Date Time Pulse Ox 97 08/17 0030 B/P 155/80 08/17 0030 B/P Mean 105 08/170 Temp 36.7 08/17 0030 Pulse 80 08/17 0030 Resp 18 08/17 0030 O2 Delivery Room air 08/16 2305 All vital signs available at the time of this en try have been reviewed. Condition Stable Clinical Impression Clinical Impression Primary Impression: Acute exacerbation of chroni c low back pain Secondary Impressions: Narcotic dependence Disposition Decision Discharge )( Discharged to Home Yes )( Time 0028 )( Date 08/17/18 Discharge/Care Plan Counseled Regarding Diagnosis, Need for follow-u p, When to return to ED Discharge Note I have spoken with the patie nt and/or caregivers. I have explained the patient's condition, diagnoses and albina atment plan based on the information available to me at this time. I have answered the patient's and/ or caregiver's questions and addressed any concerns. The patient and/or careg alfonso have as good an understanding of the patient 's diagnosis, condition and treatment plan as can be expected at this point. The vital signs have bee n stable. The patient's condition is stable and appr opriate for discharge from the emergency department. The patient will pursue further outpatient evalu ation with the primary care physician or other designated or consulting phys ician as outlined in the discharge instructions. The patient and/or caregivers are agreeable to this plan of care and follow-up instructions have been exp lained in detail. The patient and/or caregivers have received these instructio ns in written format and have expressed an understanding of the discharge inst ructions. The patient and/or caregivers are aware that any significant change in condition or worsening of symptoms should prompt an immediate return to [facility] or the closest emergency department or a call to 911. at 2117 RPT #:[id number] END OF REPORT 2018-08-16 23:31:00-00:00 [facility] ([facility]) EMERGENCY PROVIDER REPORT REPORT#:[id number] REPORT STATUS: Signed DATE:08/16/18 TIME: 2330 PATIENT: SUDHEER JUAREZ UNIT #: [id number] ROOM/BED: AGE: 47 SEX: M PCP PHYS: No Primary or Family Ph ysician SERVICE AUTHOR: Rin Simmons NP * ALL edits or amendments must be made on the [employer]/computer document * Rin Simmons 08/16/18 2331: HPI-Back Pain 40 and Over General Confirmed Patient Yes Patient Type Existing patient Assumed Care at Time 2311 Presentation Chief Complaint Pain, lumbar Hx Obtained From Patient Sudden in Onset? No Onset Occurred Today Symptom Duration Since onset Progression since Onset Gradually worsening Caused by No trauma by history Free Text HPI Notes Free Text HPI Notes 47 y/o M with PMHx of DM, an d HTN, PSHx of L3-L4 spinal fusion, presents to the ED c/o lumbar back pain x 3 days. Pt was admitted into the hosital after falling 3 feet x 1 week ago for acut e on chronic lumbar pain, chronic back pain present >1 year. Describes pain as aching.throbbing, at worst 7/10, aggravated with movement and palpation, better with rest and narcotic pain meds, no associated sx's. Pt reports he was switched from pe rcocet to dilaudid 2 days ago, with no releif of pain. Has pain management appo intment in 2 days. Denies neurological defecit, urinary incontinence. Risk-Back Pain 40 and Over Risk Stratification )( Abdominal Aortic Aneurysm Risk factors review ed, Risk factors N/A, No risk factors )( Thoracic Aortic Dissection Risk facto rs reviewed, Risk factors N/A, No risk factors Review of Systems ROS Statements All systems rev neg except as marked. Focused Review of Systems Constitutional Denies: Chills, Fatigue, Fever, Lethargy, Malais e, Recent wt loss, Weakness - generalized. Respiratory Denies: Cough, non-productive, Cough, productive , Dyspnea on exertion, Hemoptysis, Parox nocturnal dyspnea, Pleuritic p ain, Shortness of breath, Wheezing. Cardiovascular Denies: Chest pain, Dyspnea on exertion, Edema, Orthopnea, Palpitations, Parox nocturnal dyspnea, Syncope. GI Denies: Abdominal pain, Anorexia, Belching, Bloo dy/tarry stool, Constipation, Diarrhea, Dysphagia, Hematemesis, Hemato chezia, Mucousy stool, Melena, Nausea, Rectal pain, Vomiting. Male Denies: Dysuria, Flank pain, Hematuria, Incontinence, Nocturia, Penile discharge , Penile lesion, Scrotal swe lling, Testicular pain, Testicular swelling, Urinary frequency, Urinary urgency, Urination decreased, Urination increased. Musculoskeletal Reports: Back pain, Lumbar pain. Denies: Extremi ty pain, Extremity swelling, Joint pain, Joint swelling, Myalgia, Neck pain, Thoracic pain. Hematologic Denies: Adenopathy, Bleeding, Bruising, Petechia e. Neurologic Denies: Abnormal movement, Bladder dysfu nction, Bowel dysfunction, Change LOC, Confusion, Dizziness, Focal weakness, Generalize d weakness, Headache, Lightheaded, Numbness, Problem walking, Seizure, Shaking, Slurred speech, Spinning sensation, Syncope, Tingling, Unable to speak, Vision change. Past Medical History - Adult Stated Complaint FALL BACK PAIN Allergies Coded Allergies: iodine (Severe, CARDIAC ARREST 08/15/18) Converted from Ingredient Allergy: IODINE lorazepam (From ATIVAN) (Intermediate, A NXIETY worsens significantly 08/15/18) per pt he cannont take ativan because it "has t he opposite effect", wires him up more aspirin (Mild, BLEEDING 08/15/18) lisinopril (Mild, COUGHING 08/15/18) ropinirole (From REQUIP) (Mild, DECREASE BP 09/28) Home Medications Active Scripts SERTRALINE (ZOLOFT) 25 MG PO BEDTIME SERTRALINE (ZOLOFT) 25 MG PO BEDTIME #30 TAB Prov: 02/25/18 traZODone (DESYREL) 50 MG PO BEDTIME PRN PRN INS OMNIA traZODone (DESYREL) 50 MG PO BEDTIME PRN PRN IN SOMNIA #30 TAB Prov: 02/25/[address] (NexIUM) 20 MG PO DAILY ESOMEPRAZOLE MAG DR (NexIUM) 20 MG PO DAILY #30 CAP Prov: 02/25/18 METHOCARBAMOL (ROBAXIN) 750 MG PO Q8HR METHOCARBAMOL (ROBAXIN) 750 MG PO Q8HR #30 TAB Prov: 08/13/18 predniSONE 20 MG PO C BK predniSONE 20 MG PO C BK #10 TAB Prov: 08/13/18 Discontinued Scripts traMADol (ULTRAM) 50 MG PO Q4H PRN PRN pain traMADol (ULTRAM) 50 MG PO Q4H PRN PRN pain #20 TABS Prov: 05/13/18 DC: 08/10/18 1750 Change of medication Reported Medications EMPAGLIFLOZIN (JARDIANCE) 25 MG PO DAILY CLOPIDOGREL (PLAVIX) 75 MG PO DAILY PREGABALIN (LYRICA) 200 MG PO TID MONTELUKAST (SINGULAIR) 10 MG PO DAILY metFORMIN (GLUCOPHAGE) 1,000 MG PO BID METOPROLOL SUCC XL (TOPROL XL) 25 MG PO DAILY Review of Nursing Notes Rev avail, and agree Past Medical History: Reports: Diabetes mellitus, Hypertension. Additional Medical History Lupus, No MN, Heart Grafts x2, anxiety Additional Surgical History NO Stents, Spinal Fusion, back surgery Family History: Reports: Hypertension. Alcohol Use Denies EtOH use Drug Use Denies recreational drugs Smoking status for patients 13 years old or olde r: Never Smoker Physical Exam Vital Signs Vital Signs First Documented: Result Date Time Pulse Ox 96 08/16 2305 B/P 164/100 08/16 2305 B/P Mean 121 08/16 2305 O2 Delivery Room air 08/16 2305 Temp 36.9 08/16 2305 Pulse 83 08/16 2305 Resp 18 08/16 2305 Last Documented: Result Date Time Pulse Ox 97 08/170 B/P 155/80 08/17 29 B/P Mean 105 08/17 29 Temp 36.7 08/17 29 Pulse 80 08/170 Resp 18 08/17 29 O2 Delivery Room air 08/16 2305 Review of Vital Signs Reviewed, Vital signs norm al Focused PE General/Const General/Const Awake, Alert, No acute di stress, Well appearing, Well developed , Well hydrated, Well nourished MS Neck Neck Atraumatic, Supple Resp/Chest Respiratory/Chest Atraumatic, Breath sounds NL, Breath sounds = bilat Cardiovascular Cardiovascular Heart rate NL, Regular r hythm, Heart sounds NL, Cap refill not delayed, Peripheral circulation NL Abdomen/GI Abdomen/GI Atraumatic, Soft, Non-tender MS Back Flank/Spine/Paraspinal Lumbar paraspinal tend. MS Lower Extrem Lower Ext/Pelvis/MS Atraumatic, Inspection NL, Full range of motion, No swelling, Non-tender Skin Skin Atraumatic, Color NL, No rash, War m, Dry, Intact, Turgor NL, No swelling Neurologic Neurologic Oriented X3, Speech NL Re-Evaluation MDM Re-Evaluation/Progress #1 Time of Re-Eval 0028 Re-Eval Status Improved Eval Following Treatment Pt. feels better Back Pain MDM Note The patient presented with acute back pain. The patient is now resting comfortably and feels better, is alert, talkativ e, interactive and in no distress. The repeat examination is unremarkable and benign. The patient is neurologically intact and is ambulatory in the ED. The patient has no fever, no bowel or bladder incontinenc e, no saddle anesthesia, and is otherwise alert and well-appearing. The history, physical ex amination, and diagnostics (if any) do not suggest the presence of acute spinal epidural abscess, acute spinal epidural bleed, cauda equina syndrome, abdominal aortic a neurysm, aortic dissection or other process requiring further testing, treatme nt or consultation in the emergency department. The vi ji signs have been stable. The patient's condition is stable and appropriate for discharge. The pat ient will pursue further outpatient evaluation with the primary care phys ician or other designated or consulting physician as indicated in the dischar ge instructions. ED Course Medication(s) Ordered Medication(s) Ordered: Central Nervous System Agents Sig/Mahsa Start time Last Medication Dose Route Stop Time Status Admin Hydromorphone HCl 1 MG ONCE ONE 08/16 2345 DC 0 / IV 08/16 2346 2346 Hydromorphone HCl 1 MG ONCE ONE 08/16 2330 DC SC 08/16 2331 Patient Discharge Departure Vital Signs/Condition Vital Signs First Documented: Result Date Time Pulse Ox 96 08/16 2305 B/P 164/100 08/16 2305 B/P Mean 121 08/16 2305 O2 Delivery Room air 08/16 2305 Temp 36.9 08/16 2305 Pulse 83 08/16 2305 Resp 18 08/16 2305 Last Documented: Result Date Time Pulse Ox 97 08/17 29 B/P 155/80 08/17 29 B/P Mean 105 08/17 29 Temp 36.7 08/17 29 Pulse 80 08/17 29 Resp 18 08/17 29 O2 Delivery Room air 08/16 2305 All vital signs available at the time of this en try have been reviewed. Condition Stable Clinical Impression Clinical Impression Primary Impression: Acute exacerbation of chroni c low back pain Secondary Impressions: Narcotic dependence Disposition Decision Discharge )( Discharged to Home Yes )( Time 0028 )( Date 08/17/18 Discharge/Care Plan Counseled Regarding Diagnosis, Need for follow-u p, When to return to ED Discharge Note I have spoken with the patie nt and/or caregivers. I have explained the patient's condition, diagnoses and albina atment plan based on the information available to me at this time. I have answered the patient's and/ or caregiver's questions and addressed any concerns. The patient and/or careg alfonso have as good an understanding of the patient 's diagnosis, condition and treatment plan as can be expected at this point. The vital signs have bee n stable. The patient's condition is stable and appr opriate for discharge from the emergency department. The patient will pursue further outpatient evalu ation with the primary care physician or other designated or consulting phys ician as outlined in the discharge instructions. The patient and/or caregivers are agreeable to this plan of care and follow-up instructions have been exp lained in detail. The patient and/or caregivers have received these instructio ns in written format and have expressed an understanding of the discharge inst ructions. The patient and/or caregivers are aware that any significant change in condition or worsening of symptoms should prompt an immediate return to [facility] or the closest emergency department or a call to 911. Vani Madden 08/17/182116: HPI-Back Pain 40 and Over General Initial Greet Date/Time 08/16/18 2311 Physical Exam Vital Signs Vital Signs Re-Evaluation MDM ED Course Medication(s) Ordered Patient Discharge Departure Vital Signs/Condition Vital Signs Supervising Physician Note MidLv Saw Pt Alone I have reviewed the PA/WIRE SPIRAL BINDER's note and plan of car e. I was available for consultation as needed at al l times during the patient's visit in the emergency department. I agree with the clinical impression , plan and disposition. at 2117 Electronically Signed by Vani Madden MD on at 211 RPT #:[id number] END OF REPORT 2018-08-15 12:22:00-00:00 [facility] ([facility]) EMERGENCY PROVIDER REPORT REPORT#:[id number] REPORT STATUS: Signed DATE:08/15/18 TIME: 1222 PATIENT: SUDHEER JUAREZ UNIT #: [id number] ROOM/BED: AGE: 47 SEX: M PCP PHYS: No Primary or Family Ph ysician SERVICE AUTHOR: Bishop Choudhury * ALL edits or amendments must be made on the [employer]/computer document * HPI-Back Pain 40 and Over General Confirmed Patient Yes Initial Greet Date/Time 08/15/18 1217 Presentation Chief Complaint Pain, back Sudden in Onset? Yes Free Text HPI Notes Free Text HPI Notes Pt is a 47 M with history of Chronic Back Pain, DM, HTN whom was recently admitted into the hospital f or acute on chronic back pain. Patient states he was released yesterday and has pain manageme nt follow up but was unable to get his Rx filled for pain control. He does have a fentanyl pain pump in his abdomen but notes continued pain. He denies recent falls or blunt trauma to aggrevate his back. States he woke up this morning and felt li ke his back was "tight". He notes that he has been able to get aroun d his house with assistance of cane or walker. Of note, the ended the history portion o f my initial encounter by stating "I do not want to be admitted to the [facility]." Review of Systems ROS Statements All systems rev neg except as marked. Focused Review of Systems Constitutional Denies: Fever, Lethargy, Weakness - generalized. Respiratory Denies: Shortness of breath. Cardiovascular Denies: Chest pain, Dyspnea on exertion, Edema. Musculoskeletal Reports: Back pain, Lumbar pain. Denies: Extremi ty pain, Extremity swelling, Joint pain, Joint swelling, Myalgia, Neck pain, Thoracic pain. Neurologic Reports: Problem walking (uses cane/ walker). De nies: Bladder dysfunction, Bowel dysfunction, Focal weakness, Generalized w eakness, Headache, Numbness, Shaking, Syncope, Tingling, Unable to speak, Vis ion change. Past Medical History - Adult Stated Complaint back pain Allergies Coded Allergies: iodine (Severe, CARDIAC ARREST 08/15/18) Converted from Ingredient Allergy: IODINE lorazepam (From ATIVAN) (Intermediate, A NXIETY worsens significantly 08/15/18) per pt he cannont take ativan because it "has t he opposite effect", wires him up more aspirin (Mild, BLEEDING 08/15/18) lisinopril (Mild, COUGHING 08/15/18) ropinirole (From REQUIP) (Mild, DECREASE BP 09/28) Home Medications Active Scripts SERTRALINE (ZOLOFT) 25 MG PO BEDTIME SERTRALINE (ZOLOFT) 25 MG PO BEDTIME #30 TAB Prov: 02/25/18 traZODone (DESYREL) 50 MG PO BEDTIME PRN PRN INS OMNIA traZODone (DESYREL) 50 MG PO BEDTIME PRN PRN IN SOMNIA #30 TAB Prov: 02/25/[address] (NexIUM) 20 MG PO DAILY ESOMEPRAZOLE MAG DR (NexIUM) 20 MG PO DAILY #30 CAP Prov: 02/25/18 METHOCARBAMOL (ROBAXIN) 750 MG PO Q8HR METHOCARBAMOL (ROBAXIN) 750 MG PO Q8HR #30 TAB Prov: 08/13/18 predniSONE 20 MG PO C BK predniSONE 20 MG PO C BK #10 TAB Prov: 08/13/18 Discontinued Scripts traMADol (ULTRAM) 50 MG PO Q4H PRN PRN pain traMADol (ULTRAM) 50 MG PO Q4H PRN PRN pain #20 TABS Prov: 05/13/18 DC: 08/10/18 1750 Change of medication Reported Medications EMPAGLIFLOZIN (JARDIANCE) 25 MG PO DAILY CLOPIDOGREL (PLAVIX) 75 MG PO DAILY PREGABALIN (LYRICA) 200 MG PO TID MONTELUKAST (SINGULAIR) 10 MG PO DAILY metFORMIN (GLUCOPHAGE) 1,000 MG PO BID METOPROLOL SUCC XL (TOPROL XL) 25 MG PO DAILY Review of Nursing Notes Rev avail, and agree Past Medical History: Reports: Diabetes mellitus, Hypertension. Additional Medical History Lupus, No MN, Heart Grafts x2, anxiety Additional Surgical History NO Stents, Spinal Fusion, back surgery Family History: Reports: Hypertension. Alcohol Use Denies EtOH use Drug Use Denies recreational drugs Smoking status for patients 13 years old or olde r: Never Smoker Physical Exam Vital Signs Vital Signs First Documented: Result Date Time Pulse Ox 98 04/05 1206 B/P 177/89 04/05 1206 B/P Mean 118 04/05 1206 O2 Delivery Room air 04/05 1206 Temp 36.8 04/05 1206 Pulse 81 04/05 1206 Resp 18 04/05 1206 Last Documented: Result Date Time Pulse Ox 98 04/05 1206 B/P 177/89 04/05 1206 B/P Mean 118 04/05 1206 O2 Delivery Room air 04/05 1206 Temp 36.8 04/05 1206 Pulse 81 04/05 1206 Resp 18 04/05 1206 Review of Vital Signs Reviewed Focused PE General/Const General/Const Awake, Alert, No acute di stress, Well appearing, Well developed , Well hydrated, on initial encounter the patien t is lieing in bed with his hands crossed behind his head and legs crossed t alking with his spouse in NAD MS Neck Neck Supple, No meningismus Resp/Chest Respiratory/Chest Atraumatic, Breath sounds NL, Breath sounds = bilat, No respiratory distress, No rales, No rhonchi Cardiovascular Cardiovascular Heart rate NL, Regular rhythm, H eart sounds NL, No gallop, No murmurs, No rubs, Cap refill not delayed, Periph eral circulation NL Abdomen/GI Abdomen/GI Atraumatic, Soft, Non-tender, No dis tention, No pulsatile mass, R sided abdominal pain pump is palpable MS Back Back Atraumatic, No midline vertebral tend, Str aight leg raise neg, No CVA tenderness, remote skin changes from procedures neg for midline tnederness or steppoffs paraspinal soft tissue tenderness is p resent MS Lower Extrem Lower Ext/Pelvis/MS Atraumatic, Inspection NL, Full range of motion, No swelling, Non-tender, Neurol ogic intact, Vascular intact, Pelvis stable, Pelvis non-tender, patient is able to lift both legs up past 45 degrees in supine position able to roll side to side without natali tance Skin Skin Atraumatic, Color NL Neurologic Neurologic Oriented X3, Speech NL, No m otor deficits, No sensory deficits, no diminished sensation to saddle region 5/5 streng th to BLE reflexes are normal to patella and achilles Additional PE MS Ankle/Foot Ankle/Foot Inspection NL, No compartment syndro me, No edema Psychiatric Psychiatric Affect NL, Mood NL Re-Evaluation MDM Free Text MDM Notes Free Text MDM Notes I reviewed the patient's chart from recent admis dyana/ CT spine: I had a discussion with patient about care for c hronic back pain and the need for him to follow up with al ready established pain medicine doctor. Pt agrees to go home with meds for muscle spasm/ strain and f ollow up. This patient was recently ad mitted and evaluated by Pain Mgmt, Ortho and cleared for discharge. He has adequate follow up with pain managmeent and has no focal neurologic deficits, fever or dysuria. Re-Evaluation/Progress #1 Time of Re-Eval 1222 Re-Eval Status Improved ED Course Medication(s) Ordered Medication(s) Ordered: Autonomic Drugs Sig/Mahsa Start time Last Medication Dose Route Stop Time Status Admin Methocarbamol 750 MG X1ED STA 08/15 1222 DC 04/ PO 08/15 1223 1229 Central Nervous System Agents Sig/Mahsa Start time Last Medication Dose Route Stop Time Status Admin Hydromorphone HCl 2 MG X1ED STA 08/15 1221 DC 0 /05 PO 08/15 1222 1230 Hormones And Synthetic Substit Sig/Mahsa Start time Last Medication Dose Route Stop Time Status Admin Prednisone 50 MG X1ED STA 08/15 1222 DC 04/05 PO 08/15 1223 1229 Patient Discharge Departure Vital Signs/Condition Vital Signs First Documented: Result Date Time Pulse Ox 98 08/15 1206 B/P 177/89 08/15 1206 B/P Mean 118 08/15 1206 O2 Delivery Room air 08/15 1206 Temp 36.8 08/15 1206 Pulse 81 08/15 1206 Resp 18 08/15 1206 Last Documented: Result Date Time Pulse Ox 98 08/15 1206 B/P 177/89 08/15 1206 B/P Mean 118 08/15 1206 O2 Delivery Room air 08/15 120 Temp 36.8 08/15 1206 Pulse 81 08/15 1206 Resp 18 08/15 1206 All vital signs available at the time of this en try have been reviewed. Condition Stable Clinical Impression Clinical Impression Primary Impression: Acute exacerbation of chroni c low back pain Disposition Decision Discharge )( Discharged to Home Yes )( Time 1224 )( Date 08/15/18 Discharge/Care Plan Counseled Regarding Diagnosi s, Prescriptions, Need for follow-up, When to return to ED Prescriptions prednisone robaxin Electronically Signed by Bishop Choudhury on at 1635 RPT #:[id number] END OF REPORT 2018-08-15 12:22:00-00:00 [facility] ([facility]) EMERGENCY PROVIDER REPORT REPORT#:[id number] REPORT STATUS: Signed DATE:08/15/18 TIME: 122 PATIENT: SUDHEER JUAREZ UNIT #: [id number] ROOM/BED: AGE: 47 SEX: M PCP PHYS: No Primary or Family Ph ysician SERVICE AUTHOR: Bishop Choudhury * ALL edits or amendments must be made on the [employer]/computer document * Bishop Choudhury 08/15/18 1222: HPI-Back Pain 40 and Over General Confirmed Patient Yes Presentation Chief Complaint Pain, back Sudden in Onset? Yes Free Text HPI Notes Free Text HPI Notes Pt is a 47 M with history of Chronic Back Pain, DM, HTN whom was recently admitted into the hospital f or acute on chronic back pain. Patient states he was released yesterday and has pain manageme nt follow up but was unable to get his Rx filled for pain control. He does have a fentanyl pain pump in his abdomen but notes continued pain. He denies recent falls or blunt trauma to aggrevate his back. States he woke up this morning and felt li ke his back was "tight". He notes that he has been able to get aroun d his house with assistance of cane or walker. Of note, the ended the history portion o f my initial encounter by stating "I do not want to be admitted to the [facility]." Review of Systems ROS Statements All systems rev neg except as marked. Focused Review of Systems Constitutional Denies: Fever, Lethargy, Weakness - generalized. Respiratory Denies: Shortness of breath. Cardiovascular Denies: Chest pain, Dyspnea on exertion, Edema. Musculoskeletal Reports: Back pain, Lumbar pain. Denies: Extremi ty pain, Extremity swelling, Joint pain, Joint swelling, Myalgia, Neck pain, Thoracic pain. Neurologic Reports: Problem walking (uses cane/ walker). De nies: Bladder dysfunction, Bowel dysfunction, Focal weakness, Generalized w eakness, Headache, Numbness, Shaking, Syncope, Tingling, Unable to speak, Vis ion change. Past Medical History - Adult Stated Complaint back pain Allergies Coded Allergies: iodine (Severe, CARDIAC ARREST 08/15/18) Converted from Ingredient Allergy: IODINE lorazepam (From ATIVAN) (Intermediate, A NXIETY worsens significantly 08/15/18) per pt he cannont take ativan because it "has t he opposite effect", wires him up more aspirin (Mild, BLEEDING 08/15/18) lisinopril (Mild, COUGHING 08/15/18) ropinirole (From REQUIP) (Mild, DECREASE BP 09/28) Home Medications Active Scripts SERTRALINE (ZOLOFT) 25 MG PO BEDTIME SERTRALINE (ZOLOFT) 25 MG PO BEDTIME #30 TAB Prov: 02/25/18 traZODone (DESYREL) 50 MG PO BEDTIME PRN PRN INS OMNIA traZODone (DESYREL) 50 MG PO BEDTIME PRN PRN IN SOMNIA #30 TAB Prov: 02/25/[address] (NexIUM) 20 MG PO DAILY ESOMEPRAZOLE MAG DR (NexIUM) 20 MG PO DAILY #30 CAP Prov: 02/25/18 METHOCARBAMOL (ROBAXIN) 750 MG PO Q8HR METHOCARBAMOL (ROBAXIN) 750 MG PO Q8HR #30 TAB Prov: 08/13/18 predniSONE 20 MG PO C BK predniSONE 20 MG PO C BK #10 TAB Prov: 08/13/18 Discontinued Scripts traMADol (ULTRAM) 50 MG PO Q4H PRN PRN pain traMADol (ULTRAM) 50 MG PO Q4H PRN PRN pain #20 TABS Prov: 05/13/18 DC: 08/10/18 1750 Change of medication Reported Medications EMPAGLIFLOZIN (JARDIANCE) 25 MG PO DAILY CLOPIDOGREL (PLAVIX) 75 MG PO DAILY PREGABALIN (LYRICA) 200 MG PO TID MONTELUKAST (SINGULAIR) 10 MG PO DAILY metFORMIN (GLUCOPHAGE) 1,000 MG PO BID METOPROLOL SUCC XL (TOPROL XL) 25 MG PO DAILY Review of Nursing Notes Rev avail, and agree Past Medical History: Reports: Diabetes mellitus, Hypertension. Additional Medical History Lupus, No MN, Heart Grafts x2, anxiety Additional Surgical History NO Stents, Spinal Fusion, back surgery Family History: Reports: Hypertension. Alcohol Use Denies EtOH use Drug Use Denies recreational drugs Smoking status for patients 13 years old or olde r: Never Smoker Physical Exam Vital Signs Vital Signs First Documented: Result Date Time Pulse Ox 98 04/05 1206 B/P 177/89 04/05 1206 B/P Mean 118 04/05 1206 O2 Delivery Room air 04/05 1206 Temp 36.8 04/05 1206 Pulse 81 04/05 1206 Resp 18 04/05 1206 Last Documented: Result Date Time Pulse Ox 98 04/05 1206 B/P 177/89 04/05 1206 B/P Mean 118 04/05 1206 O2 Delivery Room air 04/05 1206 Temp 36.8 04/05 1206 Pulse 81 04/05 1206 Resp 18 04/05 1206 Review of Vital Signs Reviewed Focused PE General/Const General/Const Awake, Alert, No acute di stress, Well appearing, Well developed , Well hydrated, on initial encounter the patien t is lieing in bed with his hands crossed behind his head and legs crossed t alking with his spouse in NAD MS Neck Neck Supple, No meningismus Resp/Chest Respiratory/Chest Atraumatic, Breath sounds NL, Breath sounds = bilat, No respiratory distress, No rales, No rhonchi Cardiovascular Cardiovascular Heart rate NL, Regular rhythm, H eart sounds NL, No gallop, No murmurs, No rubs, Cap refill not delayed, Periph eral circulation NL Abdomen/GI Abdomen/GI Atraumatic, Soft, Non-tender, No dis tention, No pulsatile mass, R sided abdominal pain pump is palpable MS Back Back Atraumatic, No midline vertebral tend, Str aight leg raise neg, No CVA tenderness, remote skin changes from procedures neg for midline tnederness or steppoffs paraspinal soft tissue tenderness is p resent MS Lower Extrem Lower Ext/Pelvis/MS Atraumatic, Inspection NL, Full range of motion, No swelling, Non-tender, Neurol ogic intact, Vascular intact, Pelvis stable, Pelvis non-tender, patient is able to lift both legs up past 45 degrees in supine position able to roll side to side without natali tance Skin Skin Atraumatic, Color NL Neurologic Neurologic Oriented X3, Speech NL, No m otor deficits, No sensory deficits, no diminished sensation to saddle region 5/5 streng th to BLE reflexes are normal to patella and achilles Additional PE MS Ankle/Foot Ankle/Foot Inspection NL, No compartment syndro me, No edema Psychiatric Psychiatric Affect NL, Mood NL Re-Evaluation MDM Free Text MDM Notes Free Text MDM Notes I reviewed the patient's chart from recent admis dyana/ CT spine: I had a discussion with patient about care for c hronic back pain and the need for him to follow up with al ready established pain medicine doctor. Pt agrees to go home with meds for muscle spasm/ strain and f ollow up. This patient was recently ad mitted and evaluated by Pain Mgmt, Ortho and cleared for discharge. He has adequate follow up with pain managmeent and has no focal neurologic deficits, fever or dysuria. Re-Evaluation/Progress #1 Time of Re-Eval 1222 Re-Eval Status Improved ED Course Medication(s) Ordered Medication(s) Ordered: Autonomic Drugs Sig/Mahsa Start time Last Medication Dose Route Stop Time Status Admin Methocarbamol 750 MG X1ED STA 08/15 1222 DC 04/ PO 08/15 1223 1229 Central Nervous System Agents Sig/Mahsa Start time Last Medication Dose Route Stop Time Status Admin Hydromorphone HCl 2 MG X1ED STA 08/15 1221 DC 0 05 PO 08/15 1222 1230 Hormones And Synthetic Substit Sig/Mahsa Start time Last Medication Dose Route Stop Time Status Admin Prednisone 50 MG X1ED STA 08/15 1222 DC 04/ PO 08/15 1223 1229 Patient Discharge Departure Vital Signs/Condition Vital Signs First Documented: Result Date Time Pulse Ox 98 08/15 1206 B/P 177/89 04/ 1206 B/P Mean 118 04/05 1206 O2 Delivery Room air 04/ 1206 Temp 36.8 04/05 1206 Pulse 81 04/05 1206 Resp 18 08/15 1206 Last Documented: Result Date Time Pulse Ox 98 04/ 1206 B/P 177/89 04/ 1206 B/P Mean 118 04/05 1206 O2 Delivery Room air 04/ 1206 Temp 36.8 04/05 1206 Pulse 81 04/ 1206 Resp 18 08/15 1206 All vital signs available at the time of this en try have been reviewed. Condition Stable Clinical Impression Clinical Impression Primary Impression: Acute exacerbation of chroni c low back pain Disposition Decision Discharge )( Discharged to Home Yes )( Time 1224 )( Date 08/15/18 Discharge/Care Plan Counseled Regarding Diagnosi s, Prescriptions, Need for follow-up, When to return to ED Prescriptions prednisone edwigeaxin Payton Snowden 08/16/18 0758: HPI-Back Pain 40 and Over General Initial Greet Date/Time 08/15/18 1217 Risk-Back Pain 40 and Over Risk Stratification )( Abdominal Aortic Aneurysm Risk factors review ed )( Thoracic Aortic Dissection Risk factors revie wed Physical Exam Vital Signs Vital Signs Re-Evaluation MDM ED Course Medication(s) Ordered Patient Discharge Departure Vital Signs/Condition Vital Signs Supervising Physician Note MidLv Saw Pt Alone I have reviewed the PA/WIRE SPIRAL BINDER's note and plan of car e. I was available for consultation as needed at al l times during the patient's visit in the emergency department. I agree with the clinical impression , plan and disposition. Electronically Signed by Bishop Choudhury on at 1635 Electronically Signed by Payton Snowden MD on 0 08/16/18 at 0759 RPT #:[id number] END OF REPORT 2018-08-14 11:17:00-00:00 [facility] ([facility] Orthopaedic Progress Note REPORT#:[id number] REPORT STATUS: Signed DATE:08/14/18 TIME: 1117 PATIENT: SUDHEER JUAREZ UNIT #: [id number] ROOM/BED: [place] [id number] : 70 AGE: 47 SEX: M ATTEND: Shahid Bartholomew MD ADM AUTHOR: Jose Elias Avila MD * ALL edits or amendments must be made on the [employer] document * Subjective Chief complaint: low back spasm INTRACTABLE PAIN HPI: IMPROVED PAIN PUMP INTERROGATED YESTERDAY BY PAIN MANAGEM ENT Review of Systems Constitutional: Denies: chills, fatigue, fever. Respiratory: Denies: SOB, wheezing. Cardiovascular: Denies: chest pain, palpitations. Objective VS: Last Documented: Result Date Time Pulse Ox 95 08/14 1048 B/P 124/60 08/14 1048 B/P Mean 81.6 08/14 1048 O2 Delivery Room air 08/14 1048 Temp 36.6 08/14 1048 Pulse 59 08/14 1048 Resp 18 08/14 1048 Medications: Active Meds + DC'd Last 24 Hrs Hydromorphone HCl 4 MG Q4H PRN PRN PO Hydromorphone HCl 1 MG Q6H PRN PRN IV Methocarbamol 750 MG Q8HR PO Oxycodone/Acetaminophen 1 TAB Q4H PRN PRN PO (DC ) Prednisone 20 MG C BK PO Ondansetron HCl 4 MG Q4H PRN PRN IV Dextrose/Water 125 ML ASDIR PRN IV Dextrose/Water 250 ML ASDIR PRN IV Glucagon 1 MG ASDIR PRN IM Nitroglycerin 0.4 MG Q5M PRN PRN SL Insulin Human Lispro 0 Q6HR SUBQ Hydromorphone HCl 1 MG Q4H PRN PRN IV (DC) Clopidogrel Bisulfate 75 MG DAILY PO Metoprolol Succinate 25 MG DAILY PO Montelukast Sodium 10 MG DAILY PO Pantoprazole 40 MG 0600 PO Pregabalin 200 MG TID PO Sertraline HCl 25 MG BEDTIME PO Trazodone HCl 50 MG BEDTIME PRN PRN PO Sodium Chloride 500 ML ASDIR IV Sodium Chloride 10 ML ASDIR IV I O: 24 hour I O ending at 0700: 08/14 0700 08/13 1900 Intake Total 300 Output Total 300 Balance -300 300 Intake, Oral 300 Number 1 Bowel Movements Output, Urine 300 Physical Exam General appearance: alert, awake, oriented, plea alyssia, conversational, mental status normal Musculoskeletal: midline spi ne tenderness, muscle spasm, painful range of motion , paraspinal tenderness Results Findings/data: Laboratory Tests 08/14 08/14 08/14 0538 0532 0024 Chemistry Sodium (134.0 - 147.0 mmol/l) 141 Potassium (3.6 - 5.2 mmol/L) 3.9 Chloride (98.0 - 107.0 mmol/l) 106 Carbon Dioxide (21.0 - 33.0 mmol/l) 27.8 Anion Gap (0 - 20) 11.1 BUN (7.0 - 18.0 mg/dl) 16 Creatinine (0.60 - 1.30 mg/dL) 0.77 Est GFR ( Amer) (115 - 127 mL/min) 139 H Est GFR (Non-Af Amer) (95 - 105 mL/min) 115 H Glucose (70.0 - 110.0 mg/dl) 174 H POC Glucose (70 - 110 mg/dL) 163 H 216 H Calcium (8.0 - 10.5 mg/dl) 8.0 Laboratory Tests 08/14 0532 Hematology WBC (4.5 - 11.0 K/mm3) 16.1 H RBC (4.40 - 5.90 M/mm3) 4.97 Hgb (13.0 - 17.0 gm/dL) 14.5 Hct (36.0 - 48.0 %) 44.5 MCV (80.0 - 94.0 UM3) 89.5 MCH (25.5 - 32.5 UUG) 29.2 MCHC (29.0 - 35.5 gm/dL) 32.6 RDW (11.5 - 15.0 %) 14.3 Plt Count (150 - 400 K/mm3) 161 MPV (7.4 - 10.4 fl) 13.5 H Neut % (Auto) (49.0 - 76.0 %) 74.0 Lymph % (Auto) (23.0 - 38.0 %) 18.0 L Cla[place]orne % (Auto) (1.0 - 10.0 %) 6.7 Eos % (Auto) (1.0 - 5.0 %) 0.1 L Baso % (Auto) (0.0 - 1.0 %) 0.3 Neut # (Auto) (2.4 - 6.3 K/mm3) 11.9 H Lymph # (Auto) (1.2 - 4.0 K/mm3) 2.9 Claiborne # (Auto) (0.0 - 0.6 K/mm3) 1.1 H Eos # (Auto) (0.0 - 0.7 K/MM3) 0.0 Baso # (Auto) (0.0 - 0.2 K/mm3) 0.1 Immature Gran % (0.0 - 0.4 %) 0.9 H Immature Gran # (0.00 - 0.07 x10 3/uL) 0.15 H Diagnosis, Assessment Plan Hospital course to date: MAKING PROGRESS LESS SPASM PIAN MGMT SEEING PT Problem List/A P: 1. Intractable low back pain MULTIPLE OPERATED LUMBAR SPINE CHRONIC BACK PAINS PAIN MANAGEMENT IS SEEING. REDNISONE 20 MG DAILY PHY THERAPY Electronically Signed by Jose Elias Avila MD on at 1119 RPT #:[id number] END OF REPORT 2018-08-13 14:29:00-00:00 [facility] ([facility]) Hospitalist Progress Note REPORT#:[id number] REPORT STATUS: Signed DATE:08/13/18 TIME: 1429 PATIENT: SUDHEER JUAREZ UNIT #: [id number] ROOM/BED: [place] [address] : 70 AGE: 47 SEX: M ATTEND: Shahid Bartholomew MD ADM AUTHOR: Lakeisha Flaherty MD * ALL edits or amendments must be made on the [employer]/computer document * Subjective Chief Complaint: still with severe back pain cannot take more than one or two steps worked with PT unable to sit up long enough pain meds not working no recent weight loss, incontinence,loss of blad rick or bowel control Review of Systems Constitutional: Denies: fatigue, fever. Respiratory: Denies: SOB, wheezing. GI: Reports: nausea. Denies: vomiting. Objective General VS/I O: Vital Signs: Date Time Temp Pulse Resp B/P B/P Pulse O2 O2 F low FiO2 Mean Ox Delivery Rate 08/13 1141 36.4 59 17 118/76 90.1 95 08/13 0654 36.7 49 17 119/68 85.3 97 08/13 0357 36.4 58 19 121/76 90.7 97 Nasal cannula 08/13 0004 37.0 53 19 126/63 84.0 98 Nasal cannula 08/12 1852 37.0 60 19 104/62 75.8 98 Nasal cannula 08/12 1531 36.7 51 18 108/62 77.7 97 Nasal cannula Physical Exam General appearance: alert, awake, oriented Cardiovascular: normal heart sounds, regular rat e rhythm Respiratory: clear to auscultation, symmetric ex pansion Abdomen: non-tender, normal bowel sounds, soft, no distention, pain pump Extremities: no calf tenderness, no clubbing, no cyanosis, no edema Musculoskeletal: muscle spasm, muscle tenderness , paraspinal tenderness Neuro/SET UP MECHANIC HEADING MACHINES: alert, oriented X 3 Skin: dry, intact Results Findings/Data: Laboratory Tests 08/12 08/13 08/13 1620 0002 0548 Chemistry POC Glucose (70 - 110 mg/dL) 132 H 169 H 147 H Diagnosis, Assessment Plan Free Text DxA P Notes Free text DxA P notes: 1. Frwag-yx-azexpmj intractable low back pain. C T L-spine is negative for acute fracture. consulted PT, slow to improv e---cannot take few steps, cannot sit for more than few seconds seen by Dr. Avila consult pain management patient reports pain not well controlled---perco paradise not working discussed with pain mgmt, they will change to dom sotelo and also working on getting him earlier outpatient appt 2. Diabetes mellitus type 2. controlled E8O----4.7 3. Hyperlipidemia. Continue home medications. 4. Transient ischemic attack. Continue Plavix. 5. Deep vein thrombosis prophylaxis with SCDs. 6. chronic pain-----Lyrica, tramadol, fentanyl( pain pump) Home tomorrow, has wheelchair at home, wants a w alker too. continue pain control at home, needs outpatient fu with pain management discussed with patient ---he agrees with plan also set up outpatient PT if possible Electronically Signed by Lakeisha Flaherty MD on at 1438 RPT #:[id number] END OF REPORT 2018-08-13 14:29:00-00:00 [facility] ([facility]) Hospitalist Progress Note REPORT#:[id number] REPORT STATUS: Signed DATE:08/13/18 TIME: 1429 PATIENT: SUDHEER JUAREZ UNIT #: [id number] ROOM/BED: [place] [address] : 70 AGE: 47 SEX: M ATTEND: Shahid Bartholomew MD ADM AUTHOR: Lakeisha Flaherty MD * ALL edits or amendments must be made on the [employer]/computer document * See Addendum Subjective Chief Complaint: still with severe back pain cannot take more than one or two steps worked with PT unable to sit up long enough pain meds not working no recent weight loss, incontinence,loss of blad rick or bowel control Review of Systems Constitutional: Denies: fatigue, fever. Respiratory: Denies: SOB, wheezing. GI: Reports: nausea. Denies: vomiting. Objective General VS/I O: Vital Signs: Date Time Temp Pulse Resp B/P B/P Pulse O2 O2 F low FiO2 Mean Ox Delivery Rate 08/13 1141 36.4 59 17 118/76 90.1 95 08/13 0654 36.7 49 17 119/68 85.3 97 08/13 0357 36.4 58 19 121/76 90.7 97 Nasal cannula 08/13 0004 37.0 53 19 126/63 84.0 98 Nasal cannula 08/12 1852 37.0 60 19 104/62 75.8 98 Nasal cannula 08/12 1531 36.7 51 18 108/62 77.7 97 Nasal cannula Physical Exam General appearance: alert, awake, oriented Cardiovascular: normal heart sounds, regular rat e rhythm Respiratory: clear to auscultation, symmetric ex pansion Abdomen: non-tender, normal bowel sounds, soft, no distention, pain pump Extremities: no calf tenderness, no clubbing, no cyanosis, no edema Musculoskeletal: muscle spasm, muscle tenderness , paraspinal tenderness Neuro/SET UP MECHANIC HEADING MACHINES: alert, oriented X 3 Skin: dry, intact Results Findings/Data: Laboratory Tests 08/12 08/13 08/13 1620 0002 0548 Chemistry POC Glucose (70 - 110 mg/dL) 132 H 169 H 147 H Diagnosis, Assessment Plan Free Text DxA P Notes Free text DxA P notes: 1. Kddvs-xo-izvgukd intractable low back pain. CT L-spine is negative for acute fracture. consulted PT, slow to improv e---cannot take few steps, cannot sit for more than few seconds seen by Dr. Avila consult pain management patient reports pain not well controlled---nikunj ghotra not working discussed with pain mgmt, they will change to dom sotelo and also working on getting him earlier outpatient appt 2. Diabetes mellitus type 2. controlled P2A----5.7 3. Hyperlipidemia. Continue home medications. 4. Transient ischemic attack. Continue Plavix. 5. Deep vein thrombosis prophylaxis with SCDs. 6. chronic pain-----Lyrica, tramadol, fentanyl( pain pump) Home tomorrow, has wheelchair at home, wants a w alker too. continue pain control at home, needs outpatient fu with pain management discussed with patient ---he agrees with plan also set up outpatient PT if possible Electronically Signed by Lakeisha Flaherty MD on at 1438 Addendum 1: 08/13/18 1439 by Lakeisha Flaherty MD The patient has a mobility l imitation that significantly impairs his/her ability to participate in one or mor e mobility-related activities of daily living in the home; and the patient is able to safely use the walker; and the functional mobility deficit can be sufficiently resolved by use of a walker. Electronically Signed by Lakeisha Flaherty MD on at 1435 RPT #:[id number] END OF REPORT 2018-08-13 14:01:00-00:00 [facility] ([facility]) Pain Management Progress Note REPORT#:[id number] REPORT STATUS: Signed DATE:08/13/18 TIME: 1401 PATIENT: SUDHEER JUAREZ UNIT #: [id number] ROOM/BED: [place] [address] : 70 AGE: 47 SEX: M ATTEND: Shahid Bartholomew MD ADM AUTHOR: Brennen Valenzuela * ALL edits or amendments must be made on the [employer]/computer document * Subjective Chief Complaint: Patient seen and examined. Chart reviewed. He still is having lumbar pa in and states that the Percocet is not manageing his discomfort. We discussed changing to Dilaudid PO and he is a greeable. Patient denies dizziness, ch est pain, dyspnea, N/V, pruritus, or hallucinations 14 point ROS unremarkable except as noted Objective Physical Exam VS/I O: Last Documented: Result Date Time Pulse Ox 95 08/13 1141 B/P 118/76 08/13 1141 B/P Mean 90.1 08/13 1141 Temp 36.4 08/13 1141 Pulse 59 08/13 1141 Resp 17 08/13 1141 O2 Delivery Nasal cannula 08/13 0357 Medications: Active Meds + DC'd Last 24 Hrs Hydromorphone HCl 4 MG Q4H PRN PRN PO Hydromorphone HCl 1 MG Q6H PRN PRN IV (UNV) Methocarbamol 750 MG Q8HR PO (DC) Methocarbamol 750 MG Q8HR PO Oxycodone/Acetaminophen 1 TAB Q4H PRN PRN PO (DC ) Prednisone 20 MG C BK PO Ondansetron HCl 4 MG Q4H PRN PRN IV Dextrose/Water 125 ML ASDIR PRN IV Dextrose/Water 250 ML ASDIR PRN IV Glucagon 1 MG ASDIR PRN IM Nitroglycerin 0.4 MG Q5M PRN PRN SL Insulin Human Lispro 0 Q6HR SUBQ Cyclobenzaprine HCl 10 MG BID PO (DC) Hydromorphone HCl 1 MG Q4H PRN PRN IV (DC) Oxycodone/Acetaminophen 1 TAB Q4H PRN PRN PO (DC ) Clopidogrel Bisulfate 75 MG DAILY PO Metoprolol Succinate 25 MG DAILY PO Montelukast Sodium 10 MG DAILY PO Pantoprazole 40 MG 0600 PO Pregabalin 200 MG TID PO Sertraline HCl 25 MG BEDTIME PO Trazodone HCl 50 MG BEDTIME PRN PRN PO Sodium Chloride 500 ML ASDIR IV Sodium Chloride 10 ML ASDIR IV General appearance: alert, awake, oriented, no a cute distress Head/Eyes: atraumatic, EOMI, normocephalic, norm al conjunctiva/sclera, PERRLA ENT: noraml pharynx, moist mucosal membranes Neck: full range of motion, no bruit/NL carotids, no lymphadenopathy, supple/no meningismus Cardiovascular: regular rate rhythm, no murmur, no rub Respiratory: clear to auscultation, no distress Abdomen: soft, non-tender, no distention, ITPP i n RLQ, stimulator L posterior quadrant Abdomen quadrants LLQ normal bowel sounds, LUQ normal baljinder l sounds, RLQ normal bowel sounds, RUQ normal bowel sounds Extremities: moves all, no edema, pedal pulses Neuro/SET UP MECHANIC HEADING MACHINES: no motor deficits, no sensory deficit s, CNII-XII grossly intact Skin: dry, intact, warm Lymphatics: no lymphadenopathy Psychiatry: normal affect Spine Cervical: normal inspection Thoracic: muscle tenderness Lumbar: muscle tenderness, decreased ROM Results Findings/data: Laboratory Tests: 08/13 08/13 08/12 0548 0002 1620 Chemistry POC Glucose (70 - 110 mg/dL) 147 H 169 H 132 H Diagnosis, Assessment Plan Free text A P: A/P: Pt is a47 y/o male with med hx of Diabet es mellitus type 2, hypertension, TIA, hyperlipidemia, anxiety, and lupus, chronic pain , prior L3-L4 spinal fusion, back surgery, pain pump with fentanyl and a stim ulator. He was admitted after a fall with c/o acute on c hronic lumbar pain acute on chronic lumbar pain - s/p fall - prior L3-L4 spinal fusion, ITPP, nuerostimulat or - CT Lumbar spine 08/10/18 - No acute fracture is identified. Erosive changes at the facet joints at L4-L5 bilaterally which has progressed since the prior examination may be secondary to synovitis. Diffuse discogenic disease and facet joint arthr opathy throughout the lumbar spine. Postsurgical changes at L3-L4. Moderate neuroforaminal stenosis at L4-L5 and L5-S1 bilaterally - interrogation is ITPP normal, see separate rep ort - DC percocet 7.5/325 1 tab PO q4hrs prn pain 4- 6 - Dilaudid 1mg IV q4hrs prn pain 7-10 - Dilaudid 4mg PO q 4 hrs prn pain 4-6 Muscle spasm - change Flexeril to Robaxin - Robaxin 750 mg po TID Diabetic peripheral neuropathy - Lyrica 200mg PO tid Patient will require monitoring while utilizing narcotic medication will arrange followup in clinic [place] [facility] report personally reviewed, copy place d on chart. 06/23/2018 1 04/10/2018 LYRI CA 200 MG CAPSULE 90.0 30 DA [place] [id number] [facility] (1911 ) 0 Medicare [place] 05/29/2018 1 05/29/2018 TRAM ADOL HCL 50 MG TABLET 20.0 5 KE RIT [id number] [facility] ( 1910) 05/28/2018 2 05/22/2018 FENTANYL CITRATE POWDER 0.0015 1 VL RED [id number] [facility] ( 8731) 0 195.0 MME Private Pay [place] 05/14/2018 1 05/13/2018 TRAMADOL HCL 50 MG TABLET 20.0 3 RO ARM [id number] [facility] ( 9191) 0 33.33 MME [place] 04/10/2018 1 04/10/2018 LYRI CA 200 MG CAPSULE 90.0 30 DA [place] [id number] [facility] (9191) 0 Medicare [place] 03/24/2018 2 03/20/2018 FENTANYL CITRATE POWDER 0.001 1 VL RED [id number] [facility] ( 8731) [facility] (1910) [address] [place] [facility] [address] [phone] [employer] [employer] (9190) [address] [place] [address] [phone] [facility] (8731) [address] [facility] [address] [phone] at 1406 RPT #:[id number] END OF REPORT 2018-08-13 14:01:00-00:00 [facility] ([facility]) Pain Management Progress Note REPORT#:[id number] REPORT STATUS: Signed DATE:08/13/18 TIME: 1401 PATIENT: SUDHEER JUAREZ UNIT #: [id number] ROOM/BED: [place] [address] : 70 AGE: 47 SEX: M ATTEND: Shahid Bartholomew MD ADM AUTHOR: Brennen Valenzuela * ALL edits or amendments must be made on the el Applimation/computer document * Subjective Chief Complaint: Patient seen and examined. Chart reviewed. He still is having lumbar pa in and states that the Percocet is not manageing his discomfort. We discussed changing to Dilaudid PO and he is a greeable. Patient denies dizziness, ch est pain, dyspnea, N/V, pruritus, or hallucinations 14 point ROS unremarkable except as noted Objective Physical Exam VS/I O: Last Documented: Result Date Time Pulse Ox 95 08/13 1141 B/P 118/76 08/13 1141 B/P Mean 90.1 08/13 1141 Temp 36.4 08/13 1141 Pulse 59 08/13 1141 Resp 17 08/13 1141 O2 Delivery Nasal cannula 08/13 0357 Medications: Active Meds + DC'd Last 24 Hrs Hydromorphone HCl 4 MG Q4H PRN PRN PO Hydromorphone HCl 1 MG Q6H PRN PRN IV (UNV) Methocarbamol 750 MG Q8HR PO (DC) Methocarbamol 750 MG Q8HR PO Oxycodone/Acetaminophen 1 TAB Q4H PRN PRN PO (DC ) Prednisone 20 MG C BK PO Ondansetron HCl 4 MG Q4H PRN PRN IV Dextrose/Water 125 ML ASDIR PRN IV Dextrose/Water 250 ML ASDIR PRN IV Glucagon 1 MG ASDIR PRN IM Nitroglycerin 0.4 MG Q5M PRN PRN SL Insulin Human Lispro 0 Q6HR SUBQ Cyclobenzaprine HCl 10 MG BID PO (DC) Hydromorphone HCl 1 MG Q4H PRN PRN IV (DC) Oxycodone/Acetaminophen 1 TAB Q4H PRN PRN PO (DC ) Clopidogrel Bisulfate 75 MG DAILY PO Metoprolol Succinate 25 MG DAILY PO Montelukast Sodium 10 MG DAILY PO Pantoprazole 40 MG 0600 PO Pregabalin 200 MG TID PO Sertraline HCl 25 MG BEDTIME PO Trazodone HCl 50 MG BEDTIME PRN PRN PO Sodium Chloride 500 ML ASDIR IV Sodium Chloride 10 ML ASDIR IV General appearance: alert, awake, oriented, no a cute distress Head/Eyes: atraumatic, EOMI, normocephalic, norm al conjunctiva/sclera, PERRLA ENT: noraml pharynx, moist mucosal membranes Neck: full range of motion, no bruit/NL carotids, no lymphadenopathy, supple/no meningismus Cardiovascular: regular rate rhythm, no murmur, no rub Respiratory: clear to auscultation, no distress Abdomen: soft, non-tender, no distention, ITPP i n RLQ, stimulator L posterior quadrant Abdomen quadrants LLQ normal bowel sounds, LUQ normal baljinder l sounds, RLQ normal bowel sounds, RUQ normal bowel sounds Extremities: moves all, no edema, pedal pulses Neuro/SET UP MECHANIC HEADING MACHINES: no motor deficits, no sensory deficit s, CNII-XII grossly intact Skin: dry, intact, warm Lymphatics: no lymphadenopathy Psychiatry: normal affect Spine Cervical: normal inspection Thoracic: muscle tenderness Lumbar: muscle tenderness, decreased ROM Results Findings/data: Laboratory Tests: 08/13 08/13 08/12 0548 0002 1620 Chemistry POC Glucose (70 - 110 mg/dL) 147 H 169 H 132 H Diagnosis, Assessment Plan Free text A P: A/P: Pt is a47 y/o male with med hx of Diabet es mellitus type 2, hypertension, TIA, hyperlipidemia, anxiety, and lupus, chronic pain , prior L3-L4 spinal fusion, back surgery, pain pump with fentanyl and a stim ulator. He was admitted after a fall with c/o acute on c hronic lumbar pain acute on chronic lumbar pain - s/p fall - prior L3-L4 spinal fusion, ITPP, nuerostimulat or - CT Lumbar spine 08/10/18 - No acute fracture is identified. Erosive changes at the facet joints at L4-L5 bilaterally which has progressed since the prior examination may be secondary to synovitis. Diffuse discogenic disease and facet joint arthr opathy throughout the lumbar spine. Postsurgical changes at L3-L4. Moderate neuroforaminal stenosis at L4-L5 and L5-S1 bilaterally - interrogation is ITPP normal, see separate rep ort - DC percocet 7.5/325 1 tab PO q4hrs prn pain 4- 6 - Dilaudid 1mg IV q4hrs prn pain 7-10 - Dilaudid 4mg PO q 4 hrs prn pain 4-6 Muscle spasm - change Flexeril to Robaxin - Robaxin 750 mg po TID Diabetic peripheral neuropathy - Lyrica 200mg PO tid Patient will require monitoring while utilizing narcotic medication will arrange followup in clinic [place] [facility] report personally reviewed, copy place d on chart. 06/23/2018 1 04/10/2018 LYRI CA 200 MG CAPSULE 90.0 30 DA [place] [id number] [facility] (1911 ) 0 Medicare [place] 05/29/2018 1 05/29/2018 TRAM ADOL HCL 50 MG TABLET 20.0 5 KE RIT [id number] [facility] ( 1910) 05/28/2018 2 05/22/2018 FENTANYL CITRATE POWDER 0.0015 1 VL RED [id number] [facility] ( 8731) 0 195.0 MME Private Pay [place] 05/14/2018 1 05/13/2018 TRAMADOL HCL 50 MG TABLET 20.0 3 RO ARM [id number] [facility] ( 9191) 0 33.33 MME [place] 04/10/2018 1 04/10/2018 LYRI CA 200 MG CAPSULE 90.0 30 DA [place] [id number] [facility] (9191) 0 Medicare [place] 03/24/2018 2 03/20/2018 FENTANYL CITRATE POWDER 0.001 1 VL RED [id number] [facility] ( 8731) [facility] (1910) [address] [place] [address] [phone] [employer] (9191) [address] [place] [address] [phone] [facility] (8731) [address] [facility] [address] [phone] at 1406 Electronically Signed by Alberto Arceo MD on 07/29 at 2157 RPT #:[id number] END OF REPORT 2018-08-13 07:12:00-00:00 [id number] [facility] and [place] [id number] [place] [id number] PATIENT NAME: SUDHEER JUAREZ ADMIT DATE: ACCOUNT NO: [id number] DISCHARGE DATE: ROOM NO: E.[facility] REPORT TYPE: OPERATIVE REPORT DATE OF : AGE: 47 SEX: M ADMITTING PHYSICIAN:Sky Bartholomew MD ATTENDING PHYSICIAN:Sky Bartholomew MD OPERATION DATE: 08/13/2018 PREOPERATIVE DIAGNOSIS: Chronic pain syndrome wi th intrathecal pain pump in place. POSTOPERATIVE DIAGNOSIS: Chronic pain syndrome w ith intrathecal pain pump in place. PROCEDURE PERFORMED: Interrogation of intratheca l pain pump. ANESTHESIA: PROCEDURE IN DETAIL: The patient has intrathecal pain pump and chronic pain. I was asked to interrogate his device to ascerta in medications and function. He has a Medtronic SynchroMed II device pump mod el #8637-20, pump serial #[id number]. He currently has in his reservoir f entanyl 75 mcg per mL. He has a simple continuous infusion of 16.984 mcg per day. Estimated ROB is 73 months. Current reservoir volume has 5.9 mL. Low reservo ir alarm volume is set at 2ml Refill interval approximately 17 days. Low reser voir alarm date 08/29/2018. No changes were made to his device. He is asked to follow up with his regularly treating pain management doctor for up coming refill. Dictated By: Brennen Valenzuela PA for Alberto lam MD WT: OP:KELSEA/NETO/MYLENE Conf#: [id number]/DID#: [id number] Authenticated and Edited by Lex Dan On 08/13/18 2:17:30 PM Authenticated by Alberto Arceo MD On 08/13/2018 09:58:51 PM Electronically Signed by Alberto Arceo MD on 07/29 at 2159 at 2159 PATIENT NAME: SUDHEER JUAREZ ACCOUNT #: [id number] 2018-08-12 15:23:00-00:00 [facility] ([facility] Orthopaedic Progress Note REPORT#:[id number] REPORT STATUS: Signed DATE:08/12/18 TIME: 152 PATIENT: SUDHEER JUAREZ UNIT #: [id number] ROOM/BED: [place] [address] : 70 AGE: 47 SEX: M ATTEND: Shahid Bartholomew MD ADM AUTHOR: Jose Elias Avila MD * ALL edits or amendments must be made on the [employer]/computer document * Subjective Chief complaint: low back spasm INTRACTABLE PAIN Review of Systems Constitutional: Denies: chills, fatigue. Respiratory: Denies: SOB. Cardiovascular: Denies: chest pain, palpitations. Objective VS: Last Documented: Result Date Time Pulse Ox 96 08/12 1259 B/P 118/69 08/12 1259 B/P Mean 85.4 08/12 1259 Temp 36.6 08/12 1259 Pulse 65 08/12 1259 Resp 16 08/12 1259 O2 Delivery Room air 08/12 0356 Medications: Active Meds + DC'd Last 24 Hrs Prednisone 20 MG C BK PO Ondansetron HCl 4 MG Q4H PRN PRN IV Dextrose/Water 125 ML ASDIR PRN IV Dextrose/Water 250 ML ASDIR PRN IV Glucagon 1 MG ASDIR PRN IM Nitroglycerin 0.4 MG Q5M PRN PRN SL Insulin Human Lispro 0 Q6HR SUBQ Cyclobenzaprine HCl 10 MG BID PO Hydromorphone HCl 1 MG Q4H PRN PRN IV Insulin Human Lispro 0 Q6H SUBQ (DC) Oxycodone/Acetaminophen 1 TAB Q4H PRN PRN PO Clopidogrel Bisulfate 75 MG DAILY PO Metoprolol Succinate 25 MG DAILY PO Montelukast Sodium 10 MG DAILY PO Pantoprazole 40 MG 0600 PO Insulin Human Lispro SLIDING SCALE Q6HR SUBQ (DC) Pregabalin 200 MG TID PO Sertraline HCl 25 MG BEDTIME PO Trazodone HCl 50 MG BEDTIME PRN PRN PO Dextrose/Water 125 ML ASDIR PRN IV (DC) Dextrose/Water 250 ML ASDIR PRN IV (DC) Glucagon 1 MG ASDIR PRN IM (DC) Hydromorphone HCl 1 MG Q4H PRN PRN IV (DC) Ondansetron HCl 4 MG Q4H PRN PRN IV (DC) Oxycodone/Acetaminophen 1 TAB Q4H PRN PRN PO (DC ) Sodium Chloride 500 ML ASDIR IV Sodium Chloride 10 ML ASDIR IV I O: 24 hour I O ending at 0700: 08/12 0700 08/11 1900 Intake Total 119 480 Output Total 850 400 Balance -731 80 Intake, Oral 119 240 Intake, Oral 240 Supplement Number Voids 2 Output, Urine 850 400 Ambulation status: unable to ambulate Physical Exam General appearance: alert, awake, oriented, plea alyssia, mental status normal Musculoskeletal: midline spi ne tenderness, muscle spasm, painful range of motion , paraspinal tenderness Results Findings/data: Laboratory Tests 08/12 08/12 08/12 08/12 1129 0730 0540 0051 Chemistry POC Glucose (70 - 110 mg/dL) 170 H 155 H 195 H Total Creatine Kinase (39 - 308 Units/L) 28 L Troponin I (0.00 - 0.06 NG/ML) <0.02 Radiology data: Recent Impressions: RADIOLOGY - XR CHEST 1 V 08/13 635 Report Impression - Status: SIGNED Entered: 08/12/2018 0641 IMPRESSION: No evidence of acute cardiopulmonary disease. Impression By: [email or web address] Aria Remy M.D. Diagnosis, Assessment Plan Hospital course to date: MAKING VERY LITTLE PROGRESS LOTS OF SPASM Problem List/A P: 1. Intractable low back pain MULTIPLE OPERATED LUMBAR SPINE CHRONIC BACK PAINS PAIN MANAGEMENT IS SEEING. WILL BEGIN PREDNISONE 20 MG DAILY PHY THERAPY WILL FOLLOW Electronically Signed by Jose Elias Avila MD on at 1526 RPT #:[id number] END OF REPORT 2018-08-12 13:54:00-00:00 [facility] ([facility]) Hospitalist Progress Note REPORT#:[id number] REPORT STATUS: Signed DATE:08/12/18 TIME: 1354 PATIENT: SUDHEER JUAREZ UNIT #: [id number] ROOM/BED: [place] [address] : 70 AGE: 47 SEX: M ATTEND: Shahid Bartholomew MD ADM AUTHOR: Lakeisha Flaherty MD * ALL edits or amendments must be made on the el Applimation/computer document * Subjective Chief Complaint: still with severe back pain cannot take more than one or two steps worked with PT today Review of Systems Constitutional: Denies: fatigue, fever. Respiratory: Denies: SOB, wheezing. GI: Reports: nausea. Denies: vomiting. Objective General VS/I O: Vital Signs: Date Time Temp Pulse Resp B/P B/P Pulse O2 O2 F low FiO2 Mean Ox Delivery Rate 08/12 1259 36.6 65 16 118/69 85.4 96 08/12 1126 36.8 61 94 08/12 0545 57 18 121/80 93.3 08/12 0406 75 18 133/76 94.7 08/12 0356 36.9 76 17 93/57 69.3 96 Room air 08/11 2328 37.0 52 20 108/68 81.3 97 Room air 08/11 1853 36.9 69 17 154/78 103.1 95 Room air 08/11 1527 36.8 83 18 98/61 72.9 97 Room air 24 hour I O ending at 0700: 08/11 1900 08/12 0700 Intake Total 480 119 Output Total 400 850 Balance 80 -731 Intake, Oral 240 119 Intake, Oral 240 Supplement Number Voids 2 Output, Urine 400 850 Physical Exam General appearance: alert, awake, oriented Cardiovascular: normal heart sounds, regular rat e rhythm Respiratory: clear to auscultation, symmetric ex pansion Abdomen: non-tender, normal bowel sounds, soft, no distention, pain pump Extremities: no calf tenderness, no clubbing, no cyanosis, no edema Neuro/SET UP MECHANIC HEADING MACHINES: alert, oriented X 3 Skin: dry, intact Results Findings/Data: Laboratory Tests 08/11 08/12 08/12 08/12 08/12 1523 0051 0540 0730 1129 Chemistry POC Glucose (70 - 110 mg/dL) 210 H 195 H 155 H 170 H Total Creatine Kinase (39 - 308 Units/L) 28 L Troponin I (0.00 - 0.06 NG/ML) <0.02 Diagnosis, Assessment Plan Free Text DxA P Notes Free text DxA P notes: 1. Ziifh-fa-hupvkxy intractable low back pain. C T L-spine is negative for acute fracture. consulted PT, slow to improve consulted ortho consult pain management patient reports pain not well controlled 2. Diabetes mellitus type 2. controlled O7L----1.7 3. Hyperlipidemia. Continue home medications. 4. Transient ischemic attack. Continue Plavix. 5. Deep vein thrombosis prophylaxis with SCDs. 6. chronic pain-----Lyrica, tramadol, fentanyl( pain pump) Home once the patient is able to walk. Electronically Signed by Lakeisha Flaherty MD on at 1357 RPT #:[id number] END OF REPORT 2018-08-12 12:03:00-00:00 [facility] ([facility]) Pain Management Consult Note REPORT#:[id number] REPORT STATUS: Signed DATE:08/12/18 TIME: 1203 PATIENT: SUDHEER JUAREZ UNIT #: [id number] ROOM/BED: [place] [address] : 70 AGE: 47 SEX: M ATTEND: Shahid Bartholomew MD ADM AUTHOR: Brennen Valenzuela * ALL edits or amendments must be made on the el [employer]/computer document * History of Present Illness Primary Care Physician: attend DR Bartholomew HPI: Pt is a 47-year-old male wit h known history of chronic back pain, who presented to the ER s/p fall. Pt c/o acute on chronic lumbar pain, present >1 year, worse after fall 2 days ago, aching.throbbing, at worst 7/10, aggravated with movement and palpation, better with rest and narcotic pain meds, no asso ciated sx's Review of Systems Additional notes: 14 point ROS undertaken , negative except as not ed History Past History Past Medical History: Reports: Diabetes mellitus, Hypertension. Past social history: no alcohol use, no drug abu se, no tobacco use Past family history: Relation not specified for: Family History: Cancer Family History: Diabetes Family History: Heart disease Family History: Stroke Family History: Unknown Family History: Unremarkable Medications: Home Medications: Medication Dose/Rte/Freq Days Qty Entered Last Max Daily Dose Reviewed EMPAGLIFLOZIN 25 MG PO DAILY 07/06/17 08/10/18 (JARDIANCE) 1934 2003 Strength: 25 MG TAB CLOPIDOGREL (PLAVIX) 75 MG PO DAILY 01/03/18 Strength: 75 MG TAB 2153 2003 PREGABALIN (LYRICA) 200 MG PO TID 05/13/1807/13 Strength: 200 MG CAP 0059 2003 MONTELUKAST (SINGULAIR) 10 MG PO DAILY 08/01/16 08/10/18 Strength: 4 MG TAB.CHEW 082003 metFORMIN (GLUCOPHAGE) 1,000 MG PO BID 08/01/16 08/10/18 Strength: 1,000 MG TAB 0819 2003 METOPROLOL SUCC XL 25 MG PO DAILY 08/01/16 (TOPROL XL) 0821 2003 Strength: 25 MG TAB.SR.24H SERTRALINE (ZOLOFT) 25 MG PO BEDTIME 30 08/10/18 Strength: 50 MG TAB 1543 2003 traZODone (DESYREL) 50 MG PO 30 02/25/18 Strength: 50 MG TAB BEDTIME PRN PRN 1544 [address] 20 MG PO DAILY 30 02/25/18 08/10/18 (NexIUM) 1544 2003 Strength: 20 MG CAP. Current Hospital Medications: Autonomic Drugs Sig/Mahsa Start time Last Medication Dose Route Stop Time Status Admin Cyclobenzaprine HCl 10 MG BID 08/11 2099 AC (FLEXERIL) PO 09/10 205 0852 Blood Formation,Coagulation Sig/Mahsa Start time Last Medication Dose Route Stop Time Status Admin Clopidogrel Bisulfate 75 MG DAILY 08/11 09 AC 08/12 (PLAVIX) PO 09/10 0859 0851 Cardiovascular Drugs Sig/Mahsa Start time Last Medication Dose Route Stop Time Status Admin Nitroglycerin 0.4 MG Q5M PRN PRN 08/12 0630 AC 08/12 (NITROSTAT BOTTLE) SL 09/11 0629 0643 Metoprolol Succinate 25 MG DAILY 08/11 09 AC 08/12 (TOPROL XL) PO 09/10 0859 0852 Central Nervous System Agents Sig/Mahsa Start time Last Medication Dose Route Stop Time Status Admin Hydromorphone HCl 1 MG Q4H PRN PRN 08/11 2014 A C 08/12 (DILAUDID) IV 09/10 2013 0853 Oxycodone/ 1 TAB Q4H PRN PRN 08/11 2014 AC 2 Acetaminophen PO 09/10 2013 1308 (PERCOCET 5-325 MG TABLET) Pregabalin 200 MG TID 08/10 2099 AC 08/12 (LYRICA) PO 09/09 2058 1308 Sertraline HCl 25 MG BEDTIME 08/10 2099 AC 1 (ZOLOFT) PO 09/09 2058 2302 Trazodone HCl 50 MG BEDTIME PRN PRN 08/10 2030 AC 08/11 (DESYREL) PO 09/09 2028 2302 Hydromorphone HCl 1 MG Q4H PRN PRN 08/10 1830 D C 08/11 (DILAUDID) IV 08/11 1829 1404 Electrolytic, Caloric, And Vic Sig/Mahsa Start time Last Medication Dose Route Stop Time Status Admin Dextrose/Water 125 ML ASDIR PRN 08/12 0945 AC (DEXTROSE 10%) IV 09/11 09 Dextrose/Water 250 ML ASDIR PRN 08/12 0945 AC (DEXTROSE 10%) IV 09/11 0944 Sodium Chloride 500 ML ASDIR 08/10 1830 AC (SODIUM CHLORIDE IV 09/09 1829 0.9%) Sodium Chloride 10 ML ASDIR 08/10 1830 AC (SODIUM CHLORIDE) IV 09/09 1829 Gastrointestinal Drugs Sig/Mahsa Start time Last Medication Dose Route Stop Time Status Admin Ondansetron HCl 4 MG Q4H PRN PRN 08/12 1115 AC 08/12 (ZOFRAN 2ML) IV 09/11 1114 1118 Pantoprazole 40 MG 0600 08/11 0600 AC 08/12 (PROTONIX) PO 09/10 0559 0632 Ondansetron HCl 4 MG Q4H PRN PRN 08/10 1830 DC 08/11 (ZOFRAN 2ML) IV 08/11 1829 1123 Hormones And Synthetic Substit Sig/Mahsa Start time Last Medication Dose Route Stop Time Status Admin Prednisone 20 MG C BK 08/12 1515 AC 08/12 (predniSONE) PO 08/26 1600 1631 Glucagon 1 MG ASDIR PRN 08/12 0945 AC (GLUCAGON) IM 09/11 0944 Insulin Human Lispro 0 Q6HR 08/12 0000 AC 08/12 (HumaLOG 100 UNITS/ SUBQ 09/11 0000 1159 ML) Insulin Human Lispro 0 Q6H 08/11 2015 DC (HumaLOG 100 UNITS/ SUBQ 09/10 2014 ML) Miscellaneous Therapeutic Agen Sig/Mahsa Start time Last Medication Dose Route Stop Time Status Admin Montelukast Sodium 10 MG DAILY 08/11 0900 AC (SINGULAIR) PO 09/10 0859 0852 Allergies: Coded Allergies: iodine (Severe, CARDIAC ARREST 08/10/18) Converted from Ingredient Allergy: IODINE lorazepam (From ATIVAN) (Intermediate, A NXIETY worsens significantly 08/10/18) per pt he cannont take ativan because it "has t he opposite effect", wires him up more aspirin (Mild, BLEEDING 08/10/18) lisinopril (Mild, COUGHING 08/10/18) ropinirole (From REQUIP) (Mild, DECREASE BP 07/13 05/31) Free Text Hx Notes Free text Hx notes: PAST MEDICAL HISTORY: Diabetes mellitus type 2, hypertension, TIA, hyperlipidemia, anxiety, and lupus, chronic pain . PAST SURGICAL HISTORY: L3-L4 spinal fusion, back surgery, pain pump with fentanyl and a stimulator. Objective Physical Exam VS/I O: Last Documented: Result Date Time Pulse Ox 97 08/12 1530 B/P 108/62 08/12 1530 B/P Mean 77.7 08/12 1530 O2 Delivery Nasal cannula 08/12 1530 Temp 36.7 08/12 1530 Pulse 51 08/12 1530 Resp 18 08/12 1530 24 hour I O ending at 0700: 08/12 0700 08/11 1900 Intake Total 119 480 Output Total 850 400 Balance -731 80 Intake, Oral 119 240 Intake, Oral 240 Supplement Number Voids 2 Output, Urine 850 400 General appearance: alert, awake, oriented, no a cute distress Head/Eyes: atraumatic, EOMI, normocephalic, norm al conjunctiva/sclera, PERRLA ENT: noraml pharynx, moist mucosal membranes Neck: full range of motion, no bruit/NL carotids, no lymphadenopathy, supple/no meningismus Cardiovascular: regular rate rhythm, no murmur, no rub Respiratory: clear to auscultation, no distress Abdomen: soft, non-tender, no distention, ITPP i n RLQ, stimulator L posterior quadrant Abdomen quadrants LLQ normal bowel sounds, LUQ normal baljinder l sounds, RLQ normal bowel sounds, RUQ normal bowel sounds Extremities: moves all, no edema, pedal pulses Neuro/SET UP MECHANIC HEADING MACHINES: no motor deficits, no sensory deficit s, CNII-XII grossly intact Skin: dry, intact, no rash Lymphatics: no lymphadenopathy Psychiatry: normal affect Spine Cervical: normal inspection Thoracic: muscle tenderness Lumbar: muscle tenderness, decreased ROM Results Findings/data: Laboratory Tests: 08/12 08/12 08/12 08/12 08/12 1620 1129 0730 0540 0051 Chemistry POC Glucose (70 - 110 mg/dL) 132 H 170 H 155 H 195 H Total Creatine Kinase (39 - 308 28 L Units/L) Troponin I (0.00 - 0.06 NG/ML) <0.02 Recent Impressions: RADIOLOGY - XR CHEST 1 V 08/12 0636 Report Impression - Status: SIGNED Entered: 08/12/2018 0641 IMPRESSION: No evidence of acute cardiopulmonary disease. Impression By: [email or web address] - [place] Remy M.D. Diagnosis, Assessment Plan Free text A P: A/P: Pt is a47 y/o male with med hx of Diabet es mellitus type 2, hypertension, TIA, hyperlipidemia, anxiety, and lupus, chronic pain , prior L3-L4 spinal fusion, back surgery, pain pump with fentanyl and a stim ulator. He was admitted after a fall with c/o acute on c hronic lumbar pain acute on chronic lumbar pain - s/p fall - prior L3-L4 spinal fusion, ITPP, nuerostimulat or - CT Lumbar spine 08/10/18 - No acute fracture is identified. Erosive changes at the facet joints at L4-L5 bilaterally which has progressed since the prior examination may be secondary to synovitis. Diffuse discogenic disease and facet joint arthr opathy throughout the lumbar spine. Postsurgical changes at L3-L4. Moderate neuroforaminal stenosis at L4-L5 and L5-S1 bilaterally - interrogation is ITPP normal, see separate rep ort - Dilaudid 1mg IV q4hrs prn pain 7-10 - percocet 7.5/325 1 tab PO q4hrs prn pain 4-6 Muscle spasm - change Flexeril to Robaxin - Robaxin 750 mg po TID Diabetic peripheral neuropathy - Lyrica 200mg PO tid Thank you DR Flaherty for the consultation. case di scussed with Dr Arceo whom agrees. [place] [employer] report personally reviewed, copy place d on chart. 06/23/2018 1 04/10/2018 LYRI CA 200 MG CAPSULE 90.0 30 DA [place] [id number] [facility] (1910 ) 0 Medicare [place] 05/29/2018 1 05/29/2018 TRAM ADOL HCL 50 MG TABLET 20.0 5 KE RIT [id number] [facility] ( 1910) 05/28/2018 2 05/22/2018 FENTANYL CITRATE POWDER 0.0015 1 VL RED [id number] [facility] ( 7279) 0 195.0 MME Private Pay [place] 05/14/2018 1 05/13/2018 TRAMADOL HCL 50 MG TABLET 20.0 3 RO ARM [id number] [facility] ( 9191) 0 33.33 MME Medicare [place] 04/10/2018 1 04/10/2018 LYRI CA 200 MG CAPSULE 90.0 30 DA [place] [id number] [facility] (9191) 0 Medicare [place] 03/24/2018 2 03/20/2018 FENTANYL CITRATE POWDER 0.001 1 VL RED [id number] [facility] ( 8731) [facility] (7631) [address] [place] [address] [phone] [facility] (1791) [address] [place] [address] [phone] [facility] (5987) [address] [facility] [address] [phone] at 1738 RPT #:[id number] END OF REPORT 2018-08-12 12:03:00-00:00 [facility] ([facility]) Pain Management Consult Note REPORT#:[id number] REPORT STATUS: Signed DATE:08/12/18 TIME: 1203 PATIENT: SUDHEER JUAREZ UNIT #: [id number] ROOM/BED: [place] [address] : 70 AGE: 47 SEX: M ATTEND: Shahid Bartholomew MD ADM AUTHOR: Brennen Valenzuela * ALL edits or amendments must be made on the [employer]/computer document * History of Present Illness Primary Care Physician: attend DR Bartholomew HPI: Pt is a 47-year-old male wit h known history of chronic back pain, who presented to the ER s/p fall. Pt c/o acute on chronic lumbar pain, present >1 year, worse after fall 2 days ago, aching.throbbing, at worst 7/10, aggravated with movement and palpation, better with rest and narcotic pain meds, no asso ciated sx's Review of Systems Additional notes: 14 point ROS undertaken , negative except as not ed History Past History Past Medical History: Reports: Diabetes mellitus, Hypertension. Past social history: no alcohol use, no drug abu se, no tobacco use Past family history: Relation not specified for: Family History: Cancer Family History: Diabetes Family History: Heart disease Family History: Stroke Family History: Unknown Family History: Unremarkable Medications: Home Medications: Medication Dose/Rte/Freq Days Qty Entered Last Max Daily Dose Reviewed EMPAGLIFLOZIN 25 MG PO DAILY 07/06/17 08/10/18 (JARDIANCE) 1932003 Strength: 25 MG TAB CLOPIDOGREL (PLAVIX) 75 MG PO DAILY 01/03/18 Strength: 75 MG TAB 2152003 PREGABALIN (LYRICA) 200 MG PO TID 05/13/1807/13 Strength: 200 MG CAP 0059 2003 MONTELUKAST (SINGULAIR) 10 MG PO DAILY 08/01/16 08/10/18 Strength: 4 MG TAB.CHEW 082003 metFORMIN (GLUCOPHAGE) 1,000 MG PO BID 08/01/16 08/10/18 Strength: 1,000 MG TAB 0819 2003 METOPROLOL SUCC XL 25 MG PO DAILY 08/01/16 (TOPROL XL) 0821 2003 Strength: 25 MG TAB.SR.24H SERTRALINE (ZOLOFT) 25 MG PO BEDTIME 30 08/10/18 Strength: 50 MG TAB 1543 2003 traZODone (DESYREL) 50 MG PO 30 02/25/18 Strength: 50 MG TAB BEDTIME PRN PRN 1544 [address] 20 MG PO DAILY 30 02/25/18 08/10/18 (NexIUM) 1544 2003 Strength: 20 MG CAP. Current Hospital Medications: Autonomic Drugs Sig/Mahsa Start time Last Medication Dose Route Stop Time Status Admin Cyclobenzaprine HCl 10 MG BID 08/11 2100 AC (FLEXERIL) PO 09/10 205 0852 Blood Formation,Coagulation Sig/Mahsa Start time Last Medication Dose Route Stop Time Status Admin Clopidogrel Bisulfate 75 MG DAILY 08/11 899 AC 08/12 (PLAVIX) PO 09/10 0859 0851 Cardiovascular Drugs Sig/Mahsa Start time Last Medication Dose Route Stop Time Status Admin Nitroglycerin 0.4 MG Q5M PRN PRN 08/12 0630 AC 08/12 (NITROSTAT BOTTLE) SL 09/11 0629 0643 Metoprolol Succinate 25 MG DAILY 08/11 899 AC 08/12 (TOPROL XL) PO 09/10 0859 0852 Central Nervous System Agents Sig/Mahsa Start time Last Medication Dose Route Stop Time Status Admin Hydromorphone HCl 1 MG Q4H PRN PRN 08/11 2014 AC 08/12 (DILAUDID) IV 09/10 2013 0853 Oxycodone/ 1 TAB Q4H PRN PRN 08/11 2014 AC 2 Acetaminophen PO 09/10 2013 1308 (PERCOCET 5-325 MG TABLET) Pregabalin 200 MG TID 08/10 2099 AC 08/12 (LYRICA) PO 09/09 2058 1308 Sertraline HCl 25 MG BEDTIME 08/10 2099 AC 1 (ZOLOFT) PO 09/09 2058 2302 Trazodone HCl 50 MG BEDTIME PRN PRN 08/10 2029 AC 08/11 (DESYREL) PO 09/09 2028 2302 Hydromorphone HCl 1 MG Q4H PRN PRN 08/10 1830 D C 08/11 (DILAUDID) IV 08/11 1829 1404 Electrolytic, Caloric, And Vic Sig/Mahsa Start time Last Medication Dose Route Stop Time Status Admin Dextrose/Water 125 ML ASDIR PRN 08/12 0945 AC (DEXTROSE 10%) IV 09/11 0944 Dextrose/Water 250 ML ASDIR PRN 08/12 0945 AC (DEXTROSE 10%) IV 09/11 0944 Sodium Chloride 500 ML ASDIR 08/10 1830 AC (SODIUM CHLORIDE IV 09/09 1829 0.9%) Sodium Chloride 10 ML ASDIR 08/10 1830 AC (SODIUM CHLORIDE) IV 09/09 1829 Gastrointestinal Drugs Sig/Mahsa Start time Last Medication Dose Route Stop Time Status Admin Ondansetron HCl 4 MG Q4H PRN PRN 08/12 1115 AC 08/12 (ZOFRAN 2ML) IV 09/11 1114 1118 Pantoprazole 40 MG 0600 08/11 0600 AC 08/12 (PROTONIX) PO 09/10 0559 0632 Ondansetron HCl 4 MG Q4H PRN PRN 08/10 1830 DC 08/11 (ZOFRAN 2ML) IV 08/11 1829 1123 Hormones And Synthetic Substit Sig/Mahsa Start time Last Medication Dose Route Stop Time Status Admin Prednisone 20 MG C BK 08/12 1515 AC 08/12 (predniSONE) PO 08/26 1600 1631 Glucagon 1 MG ASDIR PRN 08/12 0945 AC (GLUCAGON) IM 09/11 0944 Insulin Human Lispro 0 Q6HR 08/12 0000 AC 04 2 (HumaLOG 100 UNITS/ SUBQ 09/11 0000 1159 ML) Insulin Human Lispro 0 Q6H 08/11 2014 DC (HumaLOG 100 UNITS/ SUBQ 09/10 2014 ML) Miscellaneous Therapeutic Agen Sig/Mahsa Start time Last Medication Dose Route Stop Time Status Admin Montelukast Sodium 10 MG DAILY 08/11 0900 AC (SINGULAIR) PO 09/10 0859 0852 Allergies: Coded Allergies: iodine (Severe, CARDIAC ARREST 08/10/18) Converted from Ingredient Allergy: IODINE lorazepam (From ATIVAN) (Intermediate, A NXIETY worsens significantly 08/10/18) per pt he cannont take ativan because it "has t he opposite effect", wires him up more aspirin (Mild, BLEEDING 08/10/18) lisinopril (Mild, COUGHING 08/10/18) ropinirole (From REQUIP) (Mild, DECREASE BP 07/13 05/31) Free Text Hx Notes Free text Hx notes: PAST MEDICAL HISTORY: Diabetes mellitus type 2, hypertension, TIA, hyperlipidemia, anxiety, and lupus, chronic pain . PAST SURGICAL HISTORY: L3-L4 spinal fusion, back surgery, pain pump with fentanyl and a stimulator. Objective Physical Exam VS/I O: Last Documented: Result Date Time Pulse Ox 97 08/12 153 B/P 108/62 08/12 153 B/P Mean 77.7 08/12 153 O2 Delivery Nasal cannula 08/12 153 Temp 36.7 08/12 153 Pulse 51 08/12 1531 Resp 18 08/12 1531 24 hour I O ending at 0700: 08/12 0700 08/11 1900 Intake Total 119 480 Output Total 850 400 Balance -731 80 Intake, Oral 119 240 Intake, Oral 240 Supplement Number Voids 2 Output, Urine 850 400 General appearance: alert, awake, oriented, no a cute distress Head/Eyes: atraumatic, EOMI, normocephalic, norm al conjunctiva/sclera, PERRLA ENT: noraml pharynx, moist mucosal membranes Neck: full range of motion, no bruit/NL carotids, no lymphadenopathy, supple/no meningismus Cardiovascular: regular rate rhythm, no murmur, no rub Respiratory: clear to auscultation, no distress Abdomen: soft, non-tender, no distention, ITPP i n RLQ, stimulator L posterior quadrant Abdomen quadrants LLQ normal bowel sounds, LUQ normal baljinder l sounds, RLQ normal bowel sounds, RUQ normal bowel sounds Extremities: moves all, no edema, pedal pulses Neuro/SET UP MECHANIC HEADING MACHINES: no motor deficits, no sensory deficit s, CNII-XII grossly intact Skin: dry, intact, no rash Lymphatics: no lymphadenopathy Psychiatry: normal affect Spine Cervical: normal inspection Thoracic: muscle tenderness Lumbar: muscle tenderness, decreased ROM Results Findings/data: Laboratory Tests: 08/12 08/12 08/12 08/12 08/12 1620 1129 0730 0540 0051 Chemistry POC Glucose (70 - 110 mg/dL) 132 H 170 H 155 H 195 H Total Creatine Kinase (39 - 308 28 L Units/L) Troponin I (0.00 - 0.06 NG/ML) <0.02 Recent Impressions: RADIOLOGY - XR CHEST 1 V 08/12 0636 Report Impression - Status: SIGNED Entered: 08/12/2018 0641 IMPRESSION: No evidence of acute cardiopulmonary disease. Impression By: [email or web address] - Augusta Remy M.D. Diagnosis, Assessment Plan Free text A P: A/P: Pt is a47 y/o male with med hx of Diabet es mellitus type 2, hypertension, TIA, hyperlipidemia, anxiety, and lupus, chronic pain , prior L3-L4 spinal fusion, back surgery, pain pump with fentanyl and a stim ulator. He was admitted after a fall with c/o acute on c hronic lumbar pain acute on chronic lumbar pain - s/p fall - prior L3-L4 spinal fusion, ITPP, nuerostimulat or - CT Lumbar spine 08/10/18 - No acute fracture is identified. Erosive changes at the facet joints at L4-L5 bilaterally which has progressed since the prior examination may be secondary to synovitis. Diffuse discogenic disease and facet joint arthr opathy throughout the lumbar spine. Postsurgical changes at L3-L4. Moderate neuroforaminal stenosis at L4-L5 and L5-S1 bilaterally - interrogation is ITPP normal, see separate rep ort - Dilaudid 1mg IV q4hrs prn pain 7-10 - percocet 7.5/325 1 tab PO q4hrs prn pain 4-6 Muscle spasm - change Flexeril to Robaxin - Robaxin 750 mg po TID Diabetic peripheral neuropathy - Lyrica 200mg PO tid Thank you DR Flaherty for the consultation. case di scussed with Dr Arceo whom agrees. [facility] report personally reviewed, copy place d on chart. 06/23/2018 1 04/10/2018 LYRI CA 200 MG CAPSULE 90.0 30 DA [place] [id number] [facility] (1910 ) 0 Medicare [place] 05/29/2018 1 05/29/2018 TRAM ADOL HCL 50 MG TABLET 20.0 5 KE RIT [id number] [facility] ( 1910) 05/28/2018 2 05/22/2018 FENTANYL CITRATE POWDER 0.0015 1 VL RED [id number] [facility] ( 8731) 0 195.0 MME Private Pay [place] 05/14/2018 1 05/13/2018 TRAMADOL HCL 50 MG TABLET 20.0 3 RO ARM [id number] [facility] ( 9191) 0 33.33 MME Medicare [place] 04/10/2018 1 04/10/2018 LYRI CA 200 MG CAPSULE 90.0 30 DA [place] 615043 [facility] (9191) 0 Medicare [place] 03/24/2018 2 03/20/2018 FENTANYL CITRATE POWDER 0.001 1 VL RED [id number] [facility] ( 8731) [employer] (1910) [address] [place] [address] [id number] [employer] (9191) [address] [place] [address] [id number] [facility] (8731) [address] [facility] [address] [id number] at 1731 Electronically Signed by Alberto Arceo MD on 07/01 at 5558 RPT #:[id number] END OF REPORT 2018-08-12 09:39:00-00:00 [facility] ([facility]) Pharmacy Prog.Note-Med Mgmt REPORT#:[id number] REPORT STATUS: Signed DATE:08/12/18 TIME: 0939 PATIENT: SUDHEER JUAREZ UNIT #: [id number] ROOM/BED: [facility]-1 : 70 AGE: 47 SEX: M ATTEND: Igor Bartholomew MD ADM AUTHOR: Claudio Block [facility] * ALL edits or amendments must be made on the el ectronic/computer document * Medication Therapy Management Additional comments: RE Hypoglycemia treatment added per approved P T protocol Electronically Signed by Claudio Bolck [facility] on 08/12 at 0939 RPT #:[id number] END OF REPORT 2018-08-11 12:06:00-00:00 [id number] [facility] [address] [address] PATIENT NAME: SUDHEER JUAREZ ADMIT DATE: ACCOUNT NO: [id number] DISCHARGE DATE: ROOM NO: [facility] REPORT TYPE: CONSULTATION REPORT DATE OF : 70 AGE: 47 SEX: M ADMITTING PHYSICIAN:Sky Bartholomew MD ATTENDING PHYSICIAN:Sky Bartholomew MD CONSULTATION DATE: 08/11/2018 CONSULTING PHYSICIAN: Jose Elias Avila MD REASON FOR CONSULTATION: Intractable low back pa in and right upper leg pain. HISTORY OF PRESENT ILLNESS: Sudheer Juarez is a 47-year-old male who has a history of chronic low back pain. He was follo wed by pain management physician, Dr. Gauthier in [place], [place]. He states that he has had over 20 low back surgeries, most of which were incision and drain age of infections. He had a fusion with hardware at one point, he believes a ll the hardware has been removed. He currently has a spinal cord stimulat or in place as well as a pain pump. He has been told by his surgeon not to un dergo an MRI scan. His most recent incident involved a fall for about 3 to 4 feet off the doorway of his [facility] home. He was trying to grab o n to the door with a strong wind and it threw him off the platform. He state s he was knocked unconscious and was eventually brought here to [facility] where a CT of the lumbar spine was done, which showed postsurgica l changes, but no acute changes. There were no fractures and no dislocations of the fac et joint. Since yesterday, he has had intractable pain. He has great difficult y even rolling from side to side, initially had some numbness in his legs, but that is resolved and now he is left with some right uppe r leg pain. He has not had any nausea, vomiting, or chest pain. Denies any recent infections with fe vers or chills. PAST MEDICAL HISTORY: Diabetes type 2, hypertens ion, TIA, hyperlipidemia, anxiety disorder, and lupus. PAST SURGICAL HISTORY: He had undergone multiple lumbar surgeries, possibly over 20. He has had L3-L4 spinal fusion and deco mpression. He has had pain pump insertion as well as a spinal cord stimulator, both of which are in place. I did speak with his doctor's office, Dr. Gauthier' s office confirmed that. SOCIAL HISTORY: Lives here i n the [facility], but he drives to [place] to see his pain management physician. Denies any tobacc o, alcohol, or illicit drug use. ALLERGIES: NUMEROUS INCLUDING LISINOPRIL, ASPIRI N, LORAZEPAM, IODINE, ROPINIROLE. MEDICATIONS: At home include metoprolol, Lyrica, Zoloft, trazodone, Singulair, Nexium, Glucophage, and Plavix. PATIENT NAME: SUDHEER JUAREZ ACCOUNT #: [id number] PHYSICAL EXAMINATION: GENERAL: He is awake and alert 47-year-old [place] male. He is lying supine. He is able to answer questions appropriately. Mo derately obese. VITAL SIGNS: Show temperature 36.7, pulse 85, re spirations 18, blood pressure 99/65, pulse ox 95%. EXTREMITIES: I was able to log roll the patient to the left. He does have a healed midline incision in the lumbar spinal reg ion. There is no underlying fluid. Pelvis appears to be stable. There is haresh e mild tenderness along the spinous processes, but no sign of infection or f luid collections. Thoracic spine examination is fairly unremarkable as well . Both hips have fairly good range of motion, but overall he is quite guarded . Pulses are intact to the feet. His pain pump and spinal cord stimulator a re palpable. LABORATORY DATA: Show a WBC count of 13, hemoglo bin 15.8, and platelet count 200,000. Basic metabolic panel was unremarkable. Hemoglobin A1c was 5.7. Liver function tests are normal. Coags tests wer e normal. Imaging of the lumbar CT scan showing no acute changes to the l umbar region. There are no fractures or subluxation. There are some erosive changes inside the facet joints at L4-L5 bilaterally, which may be second ruddy to synovitis. There is diffuse discogenic disease and facet joint arthr opathy throughout the lumbar spine, but without acute changes. He has moderate neural foraminal stenosis at L4-L5 and L5-S1 bilaterally. DIAGNOSTIC DATA: X-rays of the thoracic spine re vealed no acute fracture or subluxation, or any specific injury to the thoracic spinal area and there is no significant spondylosis. ASSESSMENT: A 47-year-old with multiple lumbar b ack surgeries with acute intractable back pain on top of his chronic low back pain for which he sees pain management for which he had a spinal cord stimul ator as well as a pain pump. PLAN: 1. MRI will not be possible with a spinal cord s timulator in place. 2. Agree with Lyrica, which he is on at home as well as the Percocet and the IV Dilaudid. 3. We will order physical therapy for mobilizati on. 4. I will continue to follow him during this hospitalization. We will mobilize him as tolerated and that will be ordered. Dictated By: Jose Elias Avila MD WT: CON:ELACEY/MADISON/MYLENE Conf#: [id number]/DID#: [id number] Authenticated by Jose Elias Avila MD On 019 12:47:37 PM Electronically Signed by Jose Elias Avila MD on 0 08/13/18 at 1247 PATIENT NAME: SUDHEER JUAREZ ACCOUNT #: [id number] 2018-08-11 11:09:00-00:00 [id number] [facility] and [id number] [address] PATIENT NAME: SUDHEER JUAREZ ADMIT DATE: ACCOUNT NO: [id number] DISCHARGE DATE: 9 ROOM NO: E.438 REPORT TYPE: HISTORY AND PHYSICAL DATE OF : [birth year] AGE: 47 SEX: M ADMITTING PHYSICIAN:Sky Bartholomew MD ATTENDING PHYSICIAN:Sky Bartholomew MD ADMISSION DATE: 08/10/2018 PRIMARY CARE PHYSICIAN: REBA. REASON FOR ADMISSION: Severe back pain. HISTORY OF PRESENT ILLNESS: A 47-year-old patient with known history of chronic back pain, who follows with pain management and has fentanyl pain pump, also has history of L3-L4 spinal fusion, diabetes mellitu s type 2 and hypertension, presented to the hospital after a fall. The patient reports he lives in and it was windy yesterday, he decided to op en the door and he was ____ out of his RV. He states he fell 3 feet. He lost consciousn ess. Apparently neighbor called EMS. The patient was brought into the [facility]. He complains of severe low back pain, thoracic pain , and lower extremity pain. He reports pain is much worse than his baseline. He denies any incontinence, perineal and sensory loss. He denies nausea, vomiting, abdominal pain, anthony st pain, fevers or chills lately. PAST MEDICAL HISTORY: Diabetes mellitus type 2, hypertension, TIA, hyperlipidemia, anxiety, and lupus. PAST SURGICAL HISTORY: L3-L4 spinal fusion, back surgery, pain pump with fentanyl 12.5 mcg daily as a back stimulator. FAMILY HISTORY: Hypertension. SOCIAL HISTORY: No current tobacco, alcohol, or drug use. ALLERGIES: IODINE, LORAZEPAM, ASPIRIN, LISINOPRI L, ROPINIROLE. MEDICATIONS AT HOME: Plavix, metoprolol, Lyrica, Zoloft, trazodone, Singulair, Nexium, ____ Glucophage. REVIEW OF SYSTEMS: Fourteen-point reviewed and f ound to be negative except as mentioned in HPI. SOCIAL HISTORY: No current tobacco, alcohol, or drug use. PHYSICAL EXAMINATION: VITAL SIGNS: Afebrile, heart rate 85 karthikeyan ts per minute, respiratory rate 18 per minute, blood pressure 99/65 mmHg, pulse ox 97% on room air. Weight 120 pounds, BMI 42.7. GENERAL APPEARANCE: Alert, oriented x3, no acute distress. PATIENT NAME: SUDHEER JUAREZ ACCOUNT #: [id number] HEENT: Normocephalic, atraumatic. Oropharyngeal mucosa clear and moist. Sclerae are anicteric. Pupils bilaterally equal, react to light and accommodation. NECK: Supple. No JVD. HEART: S1 and S2 present. No murmurs, rubs, or g allops. LUNGS: Clear to auscultation bilaterally. ABDOMEN: Soft, nontender, nondistended. Bowel so unds present. No organomegaly appreciated. Pain pump noted in the right upper quadrant. EXTREMITIES: No edema, cyanosis, or clubbing. SKIN: Warm and dry. No rashes or ecchymosis. NEUROLOGIC: Cranial nerves II through XII intact . Motor and sensory normal. PSYCHIATRIC: Normal insight. MUSCULOSKELETAL: Pain all over his thoracic lumb ar spine, but no focal tenderness, no paraspinal muscle spasm. LABS AND IMAGING: CBC with hemoglobin 15.9, WBC 11.9, and platelets 161. INR 1.1. CMP with potassium 3.4. Other electrolytes normal, glucose 120 and creatinine normal. LFTs normal. X-ray thoracic s pine three views with normal thoracic kyphosis. No acute fracture or subluxat ion. No significant spondylolysis. CT of the hea d and brain without contrast, no acute abnormality. CT lumbar spine without contrast, no ac daniel fracture, erosive changes at facet joints L4-L5 bilaterally, which has prog ressed, may be secondary to synovitis, diffuse discogenic disease, facet joint arthropathy throughout the lumbar spine, post-surgical changes at L3-L4, moderate neural foraminal stenosis L4-L5 and L5-S1 bilaterally. ASSESSMENT AND PLAN: 1. Rnpuh-wa-afmdsos intractable low back pain. C T L-spine is negative for acute fracture. The patient had trauma before ad mission and would fell down 3 feet from his RV. Consult physical therapy. CT s hows no fracture. Consult ortho for further input. Continue pain meds as o rdered. Once the patient is able to move with PT, the patient can be dischar ged home. The patient follows with Dr. Gauthier in [place] pain management for chronic low back pain and has a pain pump as well. 2. Diabetes mellitus type 2. Continue home medic ations and adjust as needed. Check A1c. 3. Hyperlipidemia. Continue home medications. 4. Transient ischemic attack. Continue Plavix. 5. Deep vein thrombosis prophylaxis with SCDs. 6. Disposition: Home once the patient is able to walk. Dictated By: Lakeisha Flaherty MD WT: HP:ELACEY/BHAVNA/MYLENE Conf#: [id number]/DID#: [id number] Authenticated by Lakeisha Flaherty MD On 08/14/2018 09:48:35 PM Electronically Signed by Lakeisha Flaherty MD on 0 08/14/18 at 2148 PATIENT NAME: SUDHEER JUAREZ ACCOUNT #: [id number] 2018-08-11 11:03:00-00:00 [facility] ([facility]) History Physical - Adult REPORT#:[id number] REPORT STATUS: Signed DATE:08/11/18 TIME: 1103 PATIENT: SUDHEER JUAREZ UNIT #: [id number] ROOM/BED: [place] [address] : 70 AGE: 47 SEX: M ATTEND: Shahid Bartholomew MD ADM AUTHOR: Lakeisha Flaherty MD * ALL edits or amendments must be made on the [employer]/computer document * History Past medical history: Reports: Diabetes mellitus, Hypertension. Additional medical history: Lupus, No MN, Heart Grafts x2, anxiety Additional surgical history: NO Stents, Spinal Fusion, back surgery Family history: Reports: Hypertension. Alcohol use: Denies EtOH use Drug use: Denies recreational drugs Smoking status for patients 13 years old or olde r: Never Smoker Medication/Allergy-Vaccine Hx Allergies: Coded Allergies: iodine (Severe, CARDIAC ARREST 08/10/18) Converted from Ingredient Allergy: IODINE lorazepam (From ATIVAN) (Intermediate, A NXIETY worsens significantly 08/10/18) per pt he cannont take ativan because it "has t he opposite effect", wires him up more aspirin (Mild, BLEEDING 08/10/18) lisinopril (Mild, COUGHING 08/10/18) ropinirole (From REQUIP) (Mild, DECREASE BP 07/13 05/31) Electronically Signed by Lakeisha Flaherty MD on at 1103 RPT #:[id number] END OF REPORT 2018-08-10 17:03:00-00:00 [facility] ([facility]) EMERGENCY PROVIDER REPORT REPORT#:[id number] REPORT STATUS: Signed DATE:08/10/18 TIME: 1703 PATIENT: SUDHEER JUAREZ UNIT #: [id number] ROOM/BED: [place] [address] AGE: 47 SEX: M PCP PHYS: No Primary or Family Ph ysician SERVICE AUTHOR: Sagar Peters MD * ALL edits or amendments must be made on the [employer] document * HPI-Trauma Minor/Fall General Confirmed Patient Yes Initial Greet Date/Time 08/10/18 1646 Presentation Chief Complaint Fall Hx Obtained From Patient Onset Occurred Today Symptom Duration Since onset Progression since Onset Unchanged Caused by Fall from height Location Back Quality Painful Severity: Onset Severe Severity: Current Severe Associated with Reports: Loss of consciousness. Associated Other Pt denies other symptoms Exacerbated by Nothing Relieved by Nothing Free Text HPI Notes Free Text HPI Notes 47 y/o M with PMHx of DM, an d HTN, PSHx of L3-L4 spinal fusion, presents to the ED c/o thoracic and lumbar back pain, s/p fall f rom height, onset today. Pt states he fell 3 feet while on his RV. S tates LOC. Pt currently has a Fentanyl pump in place. Denies BUE pain, neck pain, or an y other acute Sx. Pt did not urinate on himself. Portions of this section were scribed by Shaan Palmer on 08/10/18 at 1819 Review of Systems ROS Statements All systems rev neg except as marked. Focused Review of Systems Constitutional Denies: Chills, Fever. Eyes Denies: Blurred bilat, Photophobia. Ears/Nose/Throat Denies: Nasal congestion, Sore throat. Respiratory Denies: Cough, non-productive, Shortness of john th. Musculoskeletal Reports: Back pain. Denies: Extremity pain, Neck pain. Skin Denies: Diaphoresis, Erythema. Neurologic Reports: Change LOC. Denies: Numbness. Additional Review of Systems Cardiovascular Denies: Chest pain, Palpitations. GI Denies: Abdominal pain, Nausea, Vomiting. Male Denies: Dysuria, Hematuria. Portions of this section were scribed by Shaan Palmer on 08/10/18 at 1712 Past Medical History - Adult Stated Complaint back pain Allergies Coded Allergies: iodine (Severe, CARDIAC ARREST 08/10/18) Converted from Ingredient Allergy: IODINE lorazepam (From ATIVAN) (Intermediate, A NXIETY worsens significantly 08/10/18) per pt he cannont take ativan because it "has t he opposite effect", wires him up more aspirin (Mild, BLEEDING 08/10/18) lisinopril (Mild, COUGHING 08/10/18) ropinirole (From REQUIP) (Mild, DECREASE BP 07/13 05/31) Home Medications Active Scripts SERTRALINE (ZOLOFT) 25 MG PO BEDTIME SERTRALINE (ZOLOFT) 25 MG PO BEDTIME #30 TAB Prov: 02/25/18 traZODone (DESYREL) 50 MG PO BEDTIME PRN PRN INS OMNIA traZODone (DESYREL) 50 MG PO BEDTIME PRN PRN IN SOMNIA #30 TAB Prov: 02/25/[address] (NexIUM) 20 MG PO DAILY ESOMEPRAZOLE MAG DR (NexIUM) 20 MG PO DAILY #30 CAP Prov: 02/25/18 Discontinued Scripts traMADol (ULTRAM) 50 MG PO Q4H PRN PRN pain traMADol (ULTRAM) 50 MG PO Q4H PRN PRN pain #20 TABS Prov: 05/13/18 DC: 08/10/18 9630 Change of medication Reported Medications EMPAGLIFLOZIN (JARDIANCE) 25 MG PO DAILY CLOPIDOGREL (PLAVIX) 75 MG PO DAILY PREGABALIN (LYRICA) 200 MG PO TID MONTELUKAST (SINGULAIR) 10 MG PO DAILY metFORMIN (GLUCOPHAGE) 1,000 MG PO BID METOPROLOL SUCC XL (TOPROL XL) 25 MG PO DAILY Review of Nursing Notes Rev avail, and agree Past Medical History: Reports: Diabetes mellitus, Hypertension. Additional Medical History Lupus, No MN, Heart Grafts x2, anxiety Additional Surgical History NO Stents, Spinal Fusion, back surgery Family History: Reports: Hypertension. Alcohol Use Denies EtOH use Drug Use Denies recreational drugs Smoking status for patients 13 years old or olde r: Never Smoker Portions of this section were scribed by Shaan Palmer on 08/10/18 at 1819 Physical Exam Vital Signs Vital Signs First Documented: Result Date Time Pulse Ox 98 08/10 1635 B/P 170/90 08/10 1635 B/P Mean 116 08/10 1635 Temp 36.7 08/10 1635 Pulse 78 08/10 1635 Resp 16 08/10 1635 Last Documented: Result Date Time Pulse Ox 98 08/10 1753 B/P 178/92 08/10 1753 B/P Mean 120 08/10 1753 Pulse 88 08/10 1753 Resp 16 08/10 1753 Temp 36.7 08/10 1635 Review of Vital Signs Reviewed, Vital signs abno rmal (Elevated BP) Focused PE General/Const General/Const Awake, Alert, Well developed, Wel l nourished, Cooperative MS Head Head Atraumatic, Normocephalic Ears/Nose/Throat Ears/Nose/Throat Airway patent, Mucous membrane s moist MS Neck Neck Atraumatic, Supple, Full range of motion, No swelling, Non-tender Resp/Chest Respiratory/Chest Breath sounds NL, Breath soun ds = bilat, No respiratory distress, No wheezing Cardiovascular Cardiovascular Heart rate NL, Regular rhythm, H eart sounds NL, Pulses = bilaterally MS Back Back No muscle spasm Text/Dict Notes Diffuse back tenderness. MS Upper Extrem Upper Extremity/MS Atraumatic, Inspection NL, F ull range of motion, No swelling, Non-tender MS Lower Extrem Lower Ext/Pelvis/MS Atraumatic, Inspection NL, Full range of motion, No swelling, Non-tender Skin Skin Atraumatic, Color NL, No rash, Warm, Dry, Intact, No swelling Neurologic Neurologic Oriented X3, Speech NL, No m otor deficits, No sensory deficits, CN II - XII intact, Reflexes equal bilat, Cerebella r NL, Memory NL Text/Dict Notes No neurosurgical signs. Portions of this section were scribed by Shaan Palmer on 08/10/18 at 1819 Interpretation Diagnostics Lab Results Interpretation Results Recent Impressions: RADIOLOGY - XR T-SPINE 3 VIEWS 08/10 172 Report Impression - Status: SIGNED Entered: 08/10/2018 1736 IMPRESSION: Normal thoracic kyphosis, no acute fracture or s ubluxation. No significant spondylosis. Visualized ribs are int act. Spinal epidural leads terminate at the T8-T9 level. Impression By: [email or web address] - Memo Matos M.D. CAT SCAN - CT HEAD/BRAIN W/O CONT 08/10 1753 Report Impression - Status: SIGNED Entered: 08/10/20181758 IMPRESSION: No evidence of acute intracranial abnormality. Impression By: [email or web address] Aria Remy M.D. CAT SCAN - CT L-SPINE W/O CONTRAST 08/10 1753 Report Impression - Status: SIGNED Entered: 08/10/20181805 IMPRESSION: No acute fracture is identified. Erosive changes at the facet joints at L4-L5 henok aterally which has progressed since the prior examination may be se condary to synovitis. Diffuse discogenic disease and facet joint arthr opathy throughout the lumbar spine. Postsurgical changes at L3-L4. Moderate neuroforaminal stenosis at L4-L5 and L5 -S1 bilaterally. LOCATION: B2 This CT exam was performed according to our depa rtmental dose optimization program, which includes automated e xposure control, adjustment of the mA and or kV according to suzanne ent size and/or use of iterative reconstruction technique. Impression By: [email or web address] - Amado Tafoya Imaging Statement Radiographic studies reviewed and considered in the medical decision-making. Point of Care Testing Pulse Oximetry Pulse Ox % 98 On: Room air Interpretation Interpreted by me, Pulse oximetr y normal Time 1635 Radiography X-Ray T-Spine Interpetation/Wet Read by Interpret - Radiologi st Reviewed by ED physician CT Head Study No contrast Interpretation/Wet Read by Interpret - Radiolog ist Reviewed by ED physician CT L-Spine Study Type No contrast Interpretation/Wet Read by Interpret - Radiolog ist Reviewed by ED physician Portions of this section were scribed by Shaan Palmer on 08/10/18 at 1819 Re-Evaluation MDM Free Text MDM Notes Free Text MDM Notes CT H/B ordered due to fall, LOC. Re-Evaluation/Progress #1 Time of Re-Eval 1817 Re-Eval Status Persistent pain. Plan Post Re-Eval Plan admit ED Course Medication(s) Ordered Medication(s) Ordered: Electrolytic, Caloric, And Vic Sig/Mahsa Start time Last Medication Dose Route Stop Time Status Admin Sodium Chloride 500 ML ASDIR 08/10 1829 AC IV 09/09 1828 Sodium Chloride 10 ML ASDIR 08/10 1829 AC IV 09/09 1828 Consultation Consultation Business Rules Analyst Called Physical Therapy Requested Call Time 1819 Requested Call Date 08/10/18 Call Returned Routine Portions of this section were scribed by Shaan Palmer on 08/10/18 at 1819 Patient Discharge Departure Vital Signs/Condition Vital Signs First Documented: Result Date Time Pulse Ox 98 08/10 1635 B/P 170/90 08/10 1635 B/P Mean 116 08/10 1635 Temp 36.7 08/10 1635 Pulse 78 08/10 1635 Resp 16 08/10 1635 Last Documented: Result Date Time Pulse Ox 98 08/10 1753 B/P 178/92 08/10 1753 B/P Mean 120 08/10 1753 Pulse 88 08/10 1753 Resp 16 08/10 1753 Temp 36.7 08/10 1635 All vital signs available at the time of this en try have been reviewed. Condition Stable Clinical Impression Clinical Impression Primary Impression: Intractable back pain Disposition Decision Admit Admit Physician Name Sky Bartholomew MD Admit Physician Hospitalist Request Time 1819 Request Date 08/10/18 )( Admission Accepts Yes )( Accepted Time 1819 )( Accepted Date 08/10/18 Call Information will see patient, agrees with eval, agrees with plan Discharge/Care Plan Counseled Regarding Diagnosis, Imaging studies, Need for admission Admit Note I have spoken with the patie nt and/or caregivers. I have explained the patient's condition, diagnoses and albina atment plan based on the information available to me at this time. I have answered the patient's and/ or caregiver's questions and addressed any concerns. The patient and/or careg alfonso have as good an understanding of the patient 's diagnosis, condition and treatment plan as can be expected at this point. The patient has been stabilized within the capability of the emergency department. The patient wi ll be transported for further care and management or will be moved to an observation or inpatient service. I have communicated with the staff or medical p ractitioner taking over this patient's care. Quality Measures Smoking Cessation Screened, non user Tobacco Screening/Cessation 18 years or older, D enies tobacco use Supervising Physician Note Scribe Statement Portions of this note were t ranscribed by a Scribe. I, personally performed the history, physical exam and medical decis ion making; and confirmed the accuracy of the information in the transcribed note. Shaan Palmer, 08/10/181711, scribing for a nd in the presence of Dr. Peters. Signed By: Shaan Palmer, 08/10/182 Portions of this section were scribed by Shaan Palmer on 08/10/18 at 1819 at 0615 RPT #:[id number] END OF REPORT
[2022-10-25] MEDS ORDERED: CODEINE 30MG/APAP 300MG TAB ONE (12:46)
--- NOTE | 2022-10-25 13:36 | RAD REPORT ---
EXAM DESCRIPTION: US - Scrotum Testicles - 10/25/2022 1:25 pm CLINICAL HISTORY: eval for rupture, sp trauma Trauma, pain COMPARISON: No comparisons FINDINGS: The right testicle 3.8 x 2.3 cm. No intratesticular masses or evidence of testicular torsi on. Microlithiasis. The left testicle 3.8 x 2.7 cm. No intratesticular masses or evidence of testicular torsion. Microlit hiasis. Both epididymides are normal in size and appearance. Mild left-sided hydrocele. IMPRESSION: No finding to indicate testicular trauma. Microlithiasis noted bilaterally.
[2022-10-25 14:15] LABS: Specific Gravity 1.025 (1.005-1.030); Urine Bacteria None Seen /HPF (<20); Urine Bilirubin NEGATIVE (Negative); Urine Blood 3+ (OVER) (Negative); Urine Clarity Extremely Turbid (Clear); Urine Color Yellow (Yellow); Urine Glucose 4+ (Over) (Negative); Urine Protein 1+ (Negative); Urine RBC >50 /HPF (None Seen); Urine Urobilinogen 2+ (Normal)
--- NOTE | 2022-10-25 14:54 | ER ---
Nurse's Notes [facility] Name: Matti Juarez Age: 52 yrs Sex: Male : 1970 Arrival Date: 10/25/2022 Time: 12:14 Bed 7 Private MD: Diagnosis: UTI/ Urinary tract infection, site not specified Presentation: 10/25 12:28 Chief complaint: Patient states: Pt reports that his right testicle got crushed by a cm10 folding chair when he was grabbing a bbq pit from falling. Pt reports that this happened yesterday. Pt reports that he feels like he is unable to empty his bladder completely. Coronavirus screen: Vaccine status: Patient reports receiving the 2nd dose of the covid vaccine. Client denies travel out of the [place] in the last 14 days. Ebola Screen: No symptoms or risks identified at this time. 12:28 Method Of Arrival: Wheelchair cm10 12:32 Initial Sepsis Screen: Does the patient meet any 2 criteria? No. Patient's initial cm10 sepsis screen is negative. Does the patient have a suspected source of infection? No. Patient's initial sepsis screen is negative. Risk Assessment: Do you want to hurt yourself or someone else? Patient reports no desire to harm self or others. Onset of symptoms was October 24, 2022. 12:32 Acuity: JELENA 3 cm10 Triage Assessment: 12:33 General: Appears in no apparent distress. uncomfortable, Behavior is calm, cooperative. cm10 Pain: Complains of pain in pelvis Pain currently is 10 out of 10 on a pain scale. Pain began 1 day ago. Historical: - Allergies: 12:32 Anesthesia; cm10 12:32 Aspirin; cm10 12:32 atorvastatin; cm10 12:32 Iodinated Contrast Media - IV Dye (cardiac arrest); cm10 12:32 Requip; cm10 12:32 ropinirole HCl; cm10 12:32 SHELLFISH; cm10 - PMHx: 12:32 cardiac arrest; Diabetes - NIDDM; heart catheterization; Hypertension; cm10 - PSHx: 12:32 Cholecystectomy; pain pump implant, RIGHT lower abd; spine fusion; spine stimulator, cm10 LEFT hip; - Immunization history:: Adult Immunizations unknown. - Social history:: Smoking status: Patient denies any tobacco usage or history of. Screenin:35 [facility] ED Fall Risk Assessment (Adult) History of falling in the last 3 months, iw including since admission. Abuse screen: Denies threats or abuse. Denies injuries from another. Nutritional screening: No deficits noted. Tuberculosis screening: No symptoms or risk factors identified. Assessment: 14:35 Reassessment: Patient appears in no apparent distress at this time. Patient and/or iw family updated on plan of care and expected duration. Pain level reassessed. Patient is alert, oriented x 3, equal unlabored respirations, skin warm/dry/pink. 15:19 Reassessment: Patient appears in no apparent distress at this time. Patient and/or iw family updated on plan of care and expected duration. Pain level reassessed. Patient is alert, oriented x 3, equal unlabored respirations, skin warm/dry/pink. Vital Signs: 12:32 BP 153 / 97; Pulse 103; Resp 18; Temp 99(TE); Pulse Ox 98% on R/A; Weight 104.33 kg; cm10 Height 5 ft. 6 in. ; Pain 10/10; 14:41 BP 148 / 84; Pulse 89; Resp 16; Pulse Ox 98% on R/A; Pain 9/10; iw 12:32 Body Mass Index 37.12 (104.33 kg, 167.64 cm) cm10 12:32 Pain Scale: Adult cm10 14:41 Pain Scale: Adult iw ED Course: 12:17 Patient arrived in ED. mr 12:27 Jayson Marshall MD is Attending Physician. bs3 12:32 Triage completed. cm10 12:33 Arm band placed on Patient placed in an exam room, on a stretcher. cm10 12:40 Milady Finn, RN is Primary Nurse. iw 13:25 Scrotum Testicles In Process Unspecified. EDMS 14:35 No provider procedures requiring assistance completed. Patient did not have IV access iw during this emergency room visit. 14:36 Patient has correct armband on for positive identification. iw 14:53 Tenzin Lo MD is Referral Physician. bs3 Administered Medications: 12:40 Drug: Acetaminophen-Codeine PO (300 mg-30 mg) 1 tablet Route: PO; iw 13:40 Follow up: Response: No adverse reaction iw Medication: 14:35 VIS not applicable for this client. iw Outcome: 14:53 Discharge ordered by . bs3 15:19 Discharged to home ambulatory, with family. iw 15:19 Condition: good 15:19 Discharge instructions given to patient, family, Instructed on discharge instructions, follow up and referral plans. medication usage, Demonstrated understanding of instructions, follow-up care, medications, Prescriptions given X 1. 15:21 Patient left the ED. iw Signatures: Dispatcher [employer] EDTN AngAudrey Irene, RN RN Jayson Bonilla MD MD bs3 Jennyfer Daniels RN RN cm10
--- NOTE | 2022-10-25 14:54 | EDPHYS ---
Physician Documentation [facility] Name: Matti Juarez Age: 52 yrs Sex: Male : 1970 Arrival Date: 10/25/2022 Time: 12:14 Bed 7 Private MD: ED Physician Jayson Marshall HPI: 10/25 12:36 This 52 yrs old Male presents to ER via Wheelchair with complaints of bs3 Testicular Pain. 12:36 Patient has a history of diabetes, heart cath, hypertension, status post cardiac arrest bs3 presenting with testicular pain started yesterday after he got it caught in a folding chair since then he has had severe pain he decided to wait and therefore came in today denies any nausea vomiting chest pain shortness of breath or anything else bothering him has not taken anything for the pain nothing makes better or worse. Historical: - Allergies: 12:32 Anesthesia; cm10 12:32 Aspirin; cm10 12:32 atorvastatin; cm10 12:32 Iodinated Contrast Media - IV Dye (cardiac arrest); cm10 12:32 Requip; cm10 12:32 ropinirole HCl; cm10 12:32 SHELLFISH; cm10 - PMHx: 12:32 cardiac arrest; Diabetes - NIDDM; heart catheterization; Hypertension; cm10 - PSHx: 12:32 Cholecystectomy; pain pump implant, RIGHT lower abd; spine fusion; spine stimulator, cm10 LEFT hip; - Immunization history:: Adult Immunizations unknown. - Social history:: Smoking status: Patient denies any tobacco usage or history of. ROS: 12:36 Constitutional: Negative for fever, chills bs3 12:36 All other systems are negative. Exam: 12:36 Constitutional: This is a well developed, well nourished patient who is awake, alert, bs3 and in no acute distress. Head/Face: Normocephalic, atraumatic. Eyes: Pupils equal round and reactive to light, extra-ocular motions intact. Lids and lashes normal. ENT: mmm, no posterior phyarngeal erythema Chest/axilla: Normal chest wall appearance and motion. Nontender with no deformity. No lesions are appreciated. Cardiovascular: Regular rate and rhythm with a normal S1 and S2. symmetric pulses in upper extremities Abdomen/GI: Soft, non-tender, no rebound or guarding MS/ Extremity: Pulses equal, no cyanosis. Neurovascular intact. Full, normal range of motion. Neuro: Awake and alert, GCS 15, oriented to person, place, time, and situation. Cranial nerves II-XII grossly intact. Motor strength 5/5 in all extremities. Sensory grossly intact. Vital Signs: 12:32 BP 153 / 97; Pulse 103; Resp 18; Temp 99(TE); Pulse Ox 98% on R/A; Weight 104.33 kg; cm10 Height 5 ft. 6 in. ; Pain 10/10; 14:41 BP 148 / 84; Pulse 89; Resp 16; Pulse Ox 98% on R/A; Pain 9/10; iw 12:32 Body Mass Index 37.12 (104.33 kg, 167.64 cm) cm10 12:32 Pain Scale: Adult cm10 14:41 Pain Scale: Adult iw MDM: 12:27 Patient medically screened. bs3 12:36 Data reviewed: vital signs, nurses notes. ED course: Will evaluate for testicular bs3 rupture with ultrasound we will treat pain will reassess. 14:19 ED course: Urinalysis consistent with urinary tract infection will give antibiotics bs3 advised outpatient follow-up with Dr. Lo urology. 14:51 ED course: return prec given. bs3 10/25 12:28 Order name: Urinalysis w/ reflexes; Complete Time: 14:18 bs3 10/25 14:19 Order name: Urine Culture EDAZ 10/25 12:33 Order name: US Scrotum Testicles; Complete Time: 13:45 bs3 Administered Medications: 12:40 Drug: Acetaminophen-Codeine PO (300 mg-30 mg) 1 tablet Route: PO; iw 13:40 Follow up: Response: No adverse reaction iw Disposition Summary: 10/25/22 14:53 Discharge Ordered Location: Home bs3 Problem: new bs3 Symptoms: have improved bs3 Condition: Stable bs3 Diagnosis - UTI/ Urinary tract infection, site not specified bs3 Followup: bs3 - With: Tenzin Lo MD - When: 1 week - Reason: Re-evaluation by your physician Discharge Instructions: - Discharge Summary Sheet bs3 - Urinary Tract Infection, Adult, [id number] bs3 Forms: - Medication Reconciliation Form bs3 - Thank You Letter bs3 - Antibiotic Education bs3 - Prescription Opioid Use bs3 Prescriptions: - Cephalexin 500 mg Oral Capsule - take 1 capsule by ORAL route every 12 hours for 10 days; 20 capsule; Refills: bs3 0, Product Selection Permitted Signatures: Dispatcher [employer] Milady Carty, RN RN iw Jayson Marshall MD MD bs3 Jennyfer Daniels RN RN cm10
[2022-10-25 16:33] VITALS: TEMP 99; O2SAT 98
[2022-10-25 16:35] VITALS: BP 148/84
== END 2022-10-25 15:21 | disposition home or self-care (01) ==
LOC: ER 12:14
DX: N39.0 Urinary tract infection, site not specified (principal); I10 Essential (primary) hypertension; E11.9 Type 2 diabetes mellitus without complications; I25.2 Old myocardial infarction; Z88.4 Allergy status to anesthetic agent; Z88.6 Allergy status to analgesic agent; Z88.8 Allergy status to other drugs, medicaments and biological substances; Z91.013 Allergy to seafood; Z91.041 Radiographic dye allergy status
CPT/HCPCS: 76870; 81001; 87086; 87088; 99283

== ENCOUNTER 2022-11-21 10:56 | Emergency (ER) | payer OTHER ==
--- OUTSIDE RECORDS SUMMARY | 2022-11-21 11:15 | XMS REPORT | Continuity of Care Document ---
:1970 Author Organization [facility] t Address [address] [facility] [address] [place] [address] Care Team Providers Name Role Phone NONE Primary Care Physician Unavailable Farzana PA, Blessing A Attending Clinician Hoang BRYSON, Dilip Attending Clinician FAREED PAUL Attending Clinician Unavailable Fareed Poole Attending Clinician DILIP BOLTON Attending Clinician Unavailable Jeremy BRYSON, Maggie Attending Clinician Alfred Khan MD Attending Clinician TEREZA MAGALLANES Attending Clinician Unavailable CASSY CORRIGAN Attending Clinician Unavailable CINTHIA Attending Clinician Unavailable Kay Bush MD Attending Clinician Doctor Unassigned, [place] Attending Clinician Unavailable ADITYA CHENG Attending Clinician Unavailable BLESSING YANES Attending Clinician Unavailable Mariola Romero Attending Clinician Unavailable Jacqui Gómez LVN Attending Clinician Unavailable Lab, Ang - Db Attending Clinician Unavailable Jennifer MARY, Ashley Herr Attending Clinician Unavailable Yissel Kelly Attending Clinician [...] Clinician Unavailable Tierra Matos MD Attending Clinician [phone] TOBI OLVERA Attending Clinician Unavailable TOBI OLVERA Attending Clinician Unavailable Soha Knox MD Attending Clinician JUVE DEAN Attending Clinician Unavailable ELLIOT BLOCK Attending Clinician Unavailable Lab, Adc Fam Pob I Attending Clinician Unavailable Matt Solano Attending Clinician MATT GARCIA Attending Clinician Unavailable Joel Coppola DO Attending Clinician HAFSA SAEED Attending Clinician Unavailable BAO EMERY Attending Clinician Unavailable PANKAJ MEDINA Attending Clinician Unavailable Leandro Molina MD Attending Clinician Unavailable DOMINGO AVALOS Attending Clinician Unavailable SEAN METZ Attending Clinician Unavailable LORENE MONTANO Attending Clinician Unavailable UNKNOWN, ATTENDING Attending Clinician Unavailable Vtc-Lab Attending Clinician Unavailable Dalila BRYSON, Samir Attending Clinician SAMIR CONNER Attending Clinician Unavailable Pcp-Lab Attending Clinician Unavailable Unknown, Attending Attending Clinician Unavailable Pb BRYSON, Salvatore Attending Clinician MAME NY Attending Clinician Unavailable Catherine MURILLO, Johan Attending Clinician Trell Villagomez MD Attending Clinician Brian Moss MD, Mame Attending Clinician Rosanne Pino MD Attending Clinician SHANNEN SIN Attending Clinician Unavailable ALYSSA WU Attending Clinician Unavailable Juan Butler MD Attending Clinician Marleen Attending Clinician Unavailable PATI HONEYCUTT Attending Clinician Unavailable Klarissa BRYSON, Elver Santiago Attending Clinician [phone] Sean Metz MD Attending Clinician Nicky Longo RN Attending Clinician Mary Howell MD Attending Clinician Alma BRYSON, Mikey Attending Clinician [phone] Emiliano Cheung MD Attending Clinician Sean Antoine Attending Clinician Unavailable ZHEN ZEPEDA M.D. Attending Clinician Unavailable RICHARD BRYAN Attending Clinician Unavailable JUMANA SOLO Attending Clinician Unavailable MATT RAMOS Attending Clinician Unavailable MIKAELA MAN Attending Clinician Unavailable STEVEN WILLINGHAM Attending Clinician Unavailable KERRY PUTNAM Attending Clinician Unavailable Talat Abdul Attending Clinician Unavailable Driss Bain Attending Clinician Unavailable FAREED PAUL Admitting Clinician Unavailable CINTHIA Admitting Clinician Unavailable BLESSING YANES Admitting Clinician Unavailable Mariola Romero Admitting Clinician Unavailable CASS CRESPO Admitting Clinician Unavailable SINDY ONEILL Admitting Clinician Unavailable Marleen Admitting Clinician Unavailable Mikey Marquez MD Admitting Clinician [phone] Sean Antoine Admitting Clinician Unavailable MATT RAMOS Admitting Clinician Unavailable Payers Payer Name Policy Type Policy Number Effective Date Expiration Date S jewel [facility] - [id number] DUAL COMPLETE - DUAL ELIGIBLE - SNP (MEDICARE-MEDICAID REPLACEMENT HMO) [employer] TOTAL CARE [id number] 2020 MEDICARE HMO DSNP 00:00:00 MEDICARE-PART B 5 [id number] 2020 00:00:00 [facility] [id number] 2017 DUAL COMPLETE 00:00:00 [place]: ACS - [id number] TMHP - TRADITIONAL Problems Condition Condition Condition Status Onset Resolution Last Treating Co mments Source Name Details Category Date Date Treatment Clinician Date Fatty Fatty Disease Active 2021-05 Univers liver liver 0-06 ity of 00:00: [place] [address] Medical Branch Elevated Elevated Disease Active Unive rs AST (SGOT) AST (SGOT) 9-26 it y of 00:00: [place] Medical Branch History of History of Disease Active U nivers transient transient 5-05 ity of ischemic ischemic 00:00: [place] attack attack 00 Medical (TIA) (TIA) Branch Chest pain Chest pain Disease Active 2018- U nivers 7-23 ity of 00:00: [place] [address] Medical Branch Generalize Generalize Disease Active 2017-05 M ethodi d weakness d weakness 07-05 st 00:00: [facility]osp[facility] 00 l Arthralgia Arthralgia Disease Active 2017-05 M ethodi of of -20 st multiple multiple 00:00: Hospit a sites [...] nce 730 ity of stenosis stenosis 00:00: [place] of of 00 Medical multiple multiple Branch and and 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 Type 2 Type 2 Disease Recurre Univers diabetes diabetes nce 7 ity of mellitus mellitus 00:00: [place] with other with other 00 Me dical specified specified Bran ch complicati complicati on on SANDHYA SANDHYA Disease Recurre Univers (obstructi (obstructi nce 7 it y of ve sleep ve sleep 00:00: [place] apnea) apnea) 00 Medical Branch Essential Essential [...] [place] 00 Medical Branch lisinopr DA Active GA 2019-0 [facility] iodine DA Active SV 2019-0 [facility] 4-05 [facility] d [facility] lorazepa DA Active MO 2019-0 [facility] m 4-05 [facility]: d [facility] aspirin DA Active GA 2019-0 [facility] 4-05 [facility] 00:[facility]: d [facility] ropiniro DA Active GA 2019-0 [facility] le 4-05 [facility] 00:[facility]: d 00 [facility] lisinopr DA Active GA 2019-0 [facility] il 3-31 [facility] 00:[facility]: d [facility] iodine DA Active SV 2019-0 [facility] 3-31 [facility] 00:[facility]: d [facility] lorazepa DA Active MO 2019-0 [facility] m 3-31 [facility] 00:[facility]: d [facility] aspirin DA Active GA 2019-0 [facility] 3-31 [facility] 00:[facility]: d [facility] ropiniro DA Active GA 2019-0 [facility] le 3-31 [facility] 00:[facility]: d [facility] iodine DA Active SV 2019-0 [facility] 1-05 [facility] 00:[facility]: d 00 [facility] lisinopr DA Active GA 2019-0 [facility] il 1- [facility] 00:[facility]: d 00 [facility] iodine DA Active GA 2019-0 [facility] 1- [facility] 00:[facility]: d 00 [facility] lorazepa DA Active MO 2019-0 [facility] m 1- [facility] 00:[facility]: d [facility] aspirin DA Active GA 2019-0 [facility] 1- [facility] 00:[facility]: d 00 [facility] ropiniro DA Active GA 2019-0 [facility] le 1- [facility] 00:00: d [...] m 0-14 [facility] 00:00: d 00 [facility] Center lisinopr DA Active GA 2018-0 [facility] il 8-25 [facility] 00:00: [place] 00 [facility] iodine DA Active GA 2018-0 [facility] 8-25 Clear 00:00: [place] 00 [facility] aspirin DA Active GA 2018-0 [facility] 8-25 Clear 00:00: [place] 00 [facility] ropiniro DA Active GA 2018-0 [facility] le 8-25 Clear 00:00: [place] 00 [facility] Atorvast Propensi Active Other - See [address] CoughCou g Univers atin ty to comments 730 h ity of adverse 00:00: [place] reaction 00 Medical s Branch ATORVAST DRUG Active Low Unknown-Cmnt 0 Un alfonso ATIN INGREDI 12-09 ity of [...] Medical Branch SHELLFIS DRUG Active High Palpitations 0 Un alfonso H INGREDI 10-11 ity of [...] (Clear [facility]) . Ropiniro Propensi Active Hypotensi Met hodi le ty to 10-[address] adverse 00:00: days. Hospita reaction 00 l s to drug Shellfis Propensi Active Anaphylaxis Cardiac Methodi h ty to 10-11 arrest [...] Comments Start Date Stop Date Source Natural father Hypertension [facility] Natural father Stroke [facility] Natural father Diabetes type II [facility] Maternal grandmother Cancer [facility] Maternal grandmother Diabetes [facility] Natural mother Diabetes [facility] Natural mother [facility] Natural mother Stroke [facility] Natural sister Cancer [facility] Natural sister Diabetes type II [facility] Natural sister Ovarian cancer Method [facility] Natural brother Leukemia [facility] Maternal grandfather No Known Problems [facility] Paternal grandfather No Known Problems [facility] Paternal grandmother No Known Problems [facility] Social History Social Habit Start Date Stop Date Quantity Comments Source Gender identity [facility] Sexual orientation Method [facility] Exposure to 2022-03-24 2022-04-03 Not sure University of SARS-CoV-2 (event) 00:00:00 13:26:00 [facility] Tobacco use and 2022-02-02 2022-02-02 Smokeless Universit y of exposure 00:00:00 00:00:00 tobacco non-user [facility] History of Social 2019-01-02 2019-01-[address] function 00:00:00 00:00:00 Hospital Alcohol intake 2018-05-01 2018-05-01 Current Yazidism 00:00:00 00:00:00 non-drinker of Hospital alcohol (finding) Sex Ass[birth year] At [birth year] Y[facility]ism 00:00:00 00:00:00 Hospital Smoking Status Start Date Stop Date Source Never smoked tobacco [facility] Medications Ordered Filled Start Stop Current Ordering Indication Dosage Frequency Signature Comments Components Source Medication Medication Date Date Medication? Clinician (SIG) Name Name losartan 50 Yes [id number] 50mg Take 1 Univers mg tablet 7-03 tablet by ity o f 00:00: mouth in [place] 00 the Medical morning. Branch losartan 50 Yes [id number] 50mg Take 1 Univers mg tablet 7-03 tablet by ity o f 00:00: mouth in [place] 00 the Medical morning. Branch MONTELUKAST Yes [id number] TAKE 1 Univers 10 mg 7-03 TABLET BY ity of tablet 00:00: MOUTH IN [place] 00 THE Medical MORNING Branch losartan 50 Yes [id number] 50mg Take 1 Univers mg tablet 7-03 tablet by ity o f 00:00: mouth in [place] 00 the morning. Branch MONTELUKAST Yes [id number] TAKE 1 Univers 10 mg 7-03 TABLET BY ity of tablet 00:00: MOUTH IN [place] THE Medical MORNING Branch ketorolac No 30mg 30 mg, Unive rs (TORADOL) 10-28 Slow IV ity of injection 23:30: 22:27 Push, [place] 30 mg 00 :00 ONCE, 1 Medical dose, On Branch 10/28/22 at 1830, GARY sulfamethox 2022- No 1{tbl} 1 tablet, Univers azole-trime 10-28 Oral, ity of thoprim 22:30: 22:26 ONCE, 1 [place] (BACTRIM 00 :00 dose, On Medical DS) 800-160 [place] mg per 10/28/22 at tablet 1 1730, tablet GARY
Re ason for Anti-Infec tive: Documented Infection< br>Documen carey Infection Site: Urine
D uration of Therapy: 10 days vancomycin No 1000mg 1,000 mg, Univers (VANCOCIN) 10-28 IV ity of 1,000 mg in 21:30: 22:21 [place], [place] NaCl 0.9% 00 :00 ONCE, 1 Medical (NS) 250 mL dose, On [facility] VIAL-MATE Sun IV 10/28/22 at piggyback 1630, Administer over 60 Minutes, 250 mL
Reas on for Anti-Infec tive: Documented Infection< br>Documen carey Infection Site: Urine<br&g t;Duration of Therapy: Other (see Comments) morpHINE (4 2022- No 4mg 4 mg, Slow Univers mg/mL) 10-28 IV Push, ity of injection 4 19:00: 18:56 ONCE, 1 [place] mg 00 :00 dose, On [facility] 10/28/22 at 1400, STAT ondansetron 2022- No 4mg 4 mg, Slow Univers (ZOFRAN 10-28 IV Push, ity of (PF)) 16:00: 15:57 ONCE, 1 [place] injection 4 00 :00 dose, On Medi lula mg [facility] 10/28/22 at 1100, GARY morpHINE (4 2022- No 4mg 4 mg, Slow Univers mg/mL) 10-28 IV Push, ity of injection 4 16:00: 15:57 ONCE, 1 [place] mg 00 :00 dose, On [facility] 10/28/22 at 1100, STAT sulfamethox 2022-0 Yes [id number] 1{tbl} Take 1 Univers azole-trime 6-18 tablet by ity of thoprim 00:00: mouth [place] 800-160 mg 00 every 12 Medic al per tablet (twelve) Branc h hours. gabapentin 2022-0 Yes [id number] 100mg Take 1 Univers 100 mg 6-18 capsule by ity of capsule 00:00: mouth in [place] 00 the Medical morning Branch and 1 capsule at noon and 1 capsule in the evening. ketorolac 2022-0 Yes [id number] 10mg Take 1 U nivers 10 mg 6-18 tablet by ity of tablet 00:00: mouth [place] 00 every 6 Medical (six) Branch hours as needed for Pain (scale 4-6). sulfamethox 2022-0 Yes [id number] 1{tbl} Take 1 Univers azole-trime 6-18 tablet by ity of thoprim 00:00: mouth [place] 800-160 mg 00 every 12 Medic al per tablet (twelve) Branc h hours. gabapentin 2022-0 Yes [id number] 100mg Take 1 Univers 100 mg 6-18 capsule by ity of capsule 00:00: mouth in [place] 00 the Medical morning Branch and 1 capsule at noon and 1 capsule in the evening. ketorolac 2023-0 Yes 10mg Take 1 U nivers 10 mg 6-18 tablet by ity of tablet 00:00: mouth [place] 00 every 6 Medical (six) Branch hours as needed for Pain (scale 4-6). sulfamethox 202-0 Yes 1{tbl} Take 1 Univers azole-trime 6-18 tablet by ity of thoprim 00:00: mouth [place] 800-160 mg 00 every 12 Medic al per tablet (twelve) Branc h hours. gabapentin 202-0 Yes [id number] 100mg Take 1 Univers 100 mg 6-18 capsule by ity of capsule 00:00: mouth in [place] 00 the Medical morning Branch and 1 capsule at noon and 1 capsule in the evening. ketorolac 2022-0 Yes [id number] 10mg Take 1 U nivers 10 mg 6-18 tablet by ity of tablet 00:00: mouth [place] 00 every 6 Medical (six) Branch hours as needed for Pain (scale 4-6). sulfamethox 2022-0 Yes 1{tbl} Take 1 Univers azole-trime 6-18 tablet by ity of thoprim 00:00: mouth [place] 800-160 mg 00 every 12 Medic al per tablet (twelve) Branc h hours. gabapentin 2022-0 Yes [id number] 100mg Take 1 Univers 100 mg 6-18 capsule by ity of capsule 00:00: mouth in [place] 00 the Medical morning Branch and 1 capsule at noon and 1 capsule in the evening. ketorolac 2022-0 Yes [id number] 10mg Take 1 U nivers 10 mg 6-18 tablet by ity of tablet 00:00: mouth [place] 00 every 6 Medical (six) Branch hours as needed for Pain (scale 4-6). ketorolac 2023-0 2023- No [id number] 10mg Take 1 Univers 10 mg 6-18 06-18 tablet by ity of tablet 00:00: 00:00 mouth [place] 00 :00 every 6 Medical (six) Branch hours as needed for Pain (scale 4-6). omeprazole 3-0 Yes [id number] 20mg Take 1 Univers 20 mg 6-02 capsule by ity of capsule 00:00: mouth in [place] the Medical morning. Branch MUST BE SEEN FOR FURTHER REFILLS omeprazole 3-0 Yes [id number] 20mg Take 1 Univers 20 mg 6-02 capsule by ity of capsule 00:00: mouth in [place] the Medical morning. Branch MUST BE SEEN FOR FURTHER REFILLS montelukast 2022-0 Yes [id number] 10mg Take 1 Univers 10 mg 6-02 tablet by ity of tablet 00:00: mouth in [place] the Medical morning. Branch MUST BE SEEN FOR FURTHER REFILLS omeprazole 2022-0 Yes [id number] 20mg Take 1 Univers 20 mg 6-02 capsule by ity of capsule 00:00: mouth in [place] the Medical morning. Branch MUST BE SEEN FOR FURTHER REFILLS montelukast 2022-0 Yes [id number] 10mg Take 1 Univers 10 mg 6-02 tablet by ity of tablet 00:00: mouth in [place] the Medical morning. Branch MUST BE SEEN FOR FURTHER REFILLS omeprazole 2022-0 Yes [id number] 20mg Take 1 Univers 20 mg 6-02 capsule by ity of capsule 00:00: mouth in [place] the Medical morning. Branch MUST BE SEEN FOR FURTHER REFILLS montelukast 2022-0 Yes [id number] 10mg Take 1 Univers 10 mg 6-02 tablet by ity of tablet 00:00: mouth in [place] the Medical morning. Branch MUST BE SEEN FOR FURTHER REFILLS omeprazole 3-0 Yes [id number] 20mg Take 1 Univers 20 mg 6-02 capsule by ity of capsule 00:00: mouth in [place] the Medical morning. Branch MUST BE SEEN FOR FURTHER REFILLS montelukast 2022-0 Yes [id number] 10mg Take 1 Univers 10 mg 6-02 tablet by ity of tablet 00:00: mouth in [place] the Medical morning. Branch MUST BE SEEN FOR FURTHER REFILLS omeprazole 3-0 Yes [id number] 20mg Take 1 Univers 20 mg 6-02 capsule by ity of capsule 00:00: mouth in [place] the Medical morning. Branch MUST BE SEEN FOR FURTHER REFILLS montelukast 3-0 Yes [id number] 10mg Take 1 Univers 10 mg 6-02 tablet by ity of tablet 00:00: mouth in [place] [address] the Medical morning. Branch MUST BE SEEN FOR FURTHER REFILLS omeprazole 2022-0 Yes [id number] 20mg Take 1 Univers 20 mg 6-02 capsule by ity of capsule 00:00: mouth in [place] [address] the . Branch MUST BE SEEN FOR FURTHER REFILLS omeprazole 2022-0 Yes [id number] 20mg Take 1 Univers 20 mg 6-02 capsule by ity of capsule 00:00: mouth in [place] the . Branch MUST BE SEEN FOR FURTHER REFILLS montelukast 2022-0 202- No [id number] 10mg Take 1 Univers 10 mg 6-02 07-03 tablet by ity of tablet 00:00: 00:00 mouth in [place] 00 :00 the . Branch MUST BE SEEN FOR FURTHER REFILLS metFORMIN 2022-0 Yes [id number] 1000mg Take 1 Univers 1,000 mg 4-26 tablet by ity of tablet 00:00: mouth in [address] and 1 tablet in the evening. Take with meals. MUST BE SEEN FOR FURTHER REFILLS metFORMIN 2022-0 Yes [id number] 1000mg Take 1 Univers 1,000 mg 4-26 tablet by ity of tablet 00:00: mouth in [address] and 1 tablet in the evening. Take with meals. MUST BE SEEN FOR FURTHER REFILLS metFORMIN 2022-0 Yes [id number] 1000mg Take 1 Univers 1,000 mg 4-26 tablet by ity of tablet 00:00: mouth in [address] and 1 tablet in the evening. Take with meals. MUST BE SEEN FOR FURTHER REFILLS metFORMIN 2022-0 Yes [id number] 1000mg Take 1 Univers 1,000 mg 4-26 tablet by ity of tablet 00:00: mouth in [address] and 1 tablet in the evening. Take with meals. MUST BE SEEN FOR FURTHER REFILLS metFORMIN 2022-0 Yes [id number] 1000mg Take 1 Univers 1,000 mg 4-26 tablet by ity of tablet 00:00: mouth in [address] and 1 tablet in the evening. Take with meals. MUST BE SEEN FOR FURTHER REFILLS metFORMIN 2022-0 Yes [id number] 1000mg Take 1 Univers 1,000 mg 4-26 tablet by ity of tablet 00:00: mouth in [address] and 1 tablet in the evening. Take with meals. MUST BE SEEN FOR FURTHER REFILLS metFORMIN 2022-0 Yes [id number] 1000mg Take 1 Univers 1,000 mg 4-26 tablet by ity of tablet 00:00: mouth in [place] [address] the [facility] and 1 tablet in the evening. Take with meals. MUST BE SEEN FOR FURTHER REFILLS metFORMIN 2022-0 Yes [id number] 1000mg Take 1 Univers 1,000 mg 4-26 tablet by ity of tablet 00:00: mouth in [place] [address] the [facility] and 1 tablet in the evening. Take with meals. MUST BE SEEN FOR FURTHER REFILLS metFORMIN 2022-0 Yes [id number] 1000mg Take 1 Univers 1,000 mg 4-26 tablet by ity of tablet 00:00: mouth in [address] morning [place] and 1 tablet in the evening. Take with meals. MUST BE SEEN FOR FURTHER REFILLS metFORMIN 2022-0 Yes [id number] 1000mg Take 1 Univers 1,000 mg 4-26 tablet by ity of tablet 00:00: mouth in [address] and 1 tablet in the evening. Take with meals. MUST BE SEEN FOR FURTHER REFILLS metFORMIN 2022-0 Yes [id number] 1000mg Take 1 Univers 1,000 mg 4-26 tablet by ity of tablet 00:00: mouth in [address] and 1 tablet in the evening. Take with meals. MUST BE SEEN FOR FURTHER REFILLS fluticasone 2022-0 Yes [id number] 1{spray Use 1 Univers propionate 4-21 } [place] in ity o f 50 00:00: each [place] mcg/actuati 00 nostril in Me dical on nasal the Branch spray morning and 1 [place] in the evening. fluticasone 2022-0 Yes [id number] 1{spray Use 1 Univers propionate 4-21 } [place] in ity o f 50 00:00: each [place] mcg/actuati 00 nostril in Me dical on nasal the Branch spray morning and 1 [place] in the evening. fluticasone 2022-0 Yes [id number] 1{spray Use 1 Univers propionate 4-21 } [place] in ity o f 50 00:00: each [place] mcg/actuati 00 nostril in Me dical on nasal the Branch spray morning and 1 [place] in the evening. fluticasone 2022-0 Yes [id number] 1{spray Use 1 Univers propionate 4-21 } [place] in ity o f 50 00:00: each [place] mcg/actuati 00 nostril in Me dical on nasal the Branch spray morning and 1 [place] in the evening. fluticasone 0 Yes [id number] 1{spray Use 1 Univers propionate 4-21 } [place] in ity o f 50 00:00: each [place] mcg/actuati 00 nostril in Me dical on nasal the Branch spray morning and 1 [place] in the evening. fluticasone 0 Yes [id number] 1{spray Use 1 Univers propionate 4-21 } [place] in ity o f 50 00:00: each [place] mcg/actuati 00 nostril in Me dical on nasal the Branch spray morning and 1 [place] in the evening. fluticasone 0 Yes [id number] 1{spray Use 1 Univers propionate 4-21 } [place] in ity o f 50 00:00: each [place] mcg/actuati 00 nostril in Me dical on nasal the Branch spray morning and 1 [place] in the evening. fluticasone 0 Yes [id number] 1{spray Use 1 Univers propionate 4-21 } [place] in ity o f 50 00:00: each [place] mcg/actuati 00 nostril in Me dical on nasal the Branch spray morning and 1 [place] in the evening. fluticasone Yes [id number] 1{spray Use 1 Univers propionate 4-21 } [place] in ity o f 50 00:00: each [place] mcg/actuati 00 nostril in Me dical on nasal the Branch spray morning and 1 [place] in the evening. fluticasone 0 Yes [id number] 1{spray Use 1 Univers propionate 4-21 } [place] in ity o f 50 00:00: each [place] mcg/actuati 00 nostril in Me dical on nasal the Branch spray morning and 1 [place] in the evening. fluticasone 0 Yes [id number] 1{spray Use 1 Univers propionate 4-21 } [place] in ity o f 50 00:00: each [place] mcg/actuati 00 nostril in Me dical on nasal the Branch spray morning and 1 [place] in the evening. fluticasone 2022-0 Yes [id number] 1{spray Use 1 Univers propionate 4-21 } [place] in ity o f 50 00:00: each [place] mcg/actuati 00 nostril in Me dical on nasal the Branch spray morning and 1 [place] in the evening. fluticasone 0 Yes [id number] 1{spray Use 1 Univers propionate 4-21 } [place] in ity o f 50 00:00: each [place] mcg/actuati 00 nostril in Me dical on nasal the Branch spray morning and 1 [place] in the evening. fluticasone 0 Yes [id number] 1{spray Use 1 Univers propionate 4-21 } [place] in ity o f 50 00:00: each [place] mcg/actuati 00 nostril in Me dical on nasal the Branch spray morning and 1 [place] in the evening. fluticasone 0 Yes [id number] 1{spray Use 1 Univers propionate 4-21 } [place] in it o 50 00:00: each [place] mcg/actuati 00 nostril in Me dical on nasal the Branch spray morning and 1 [place] in the evening. fluticasone 0 Yes [id number] 1{spray Use 1 Univers propionate 4-21 } [place] in it o 50 00:00: each [place] mcg/actuati 00 nostril in Me dical on nasal the Branch spray morning and 1 [place] in the evening. fluticasone 0 Yes [id number] 1{spray Use 1 Univers propionate 4-21 } [place] in [facility] 00:00: each [place] mcg/actuati 00 nostril in Me dical on nasal the Branch spray morning and 1 [place] in the evening. metoprolol 2022-0 2022- No 25mg Take 25 mg Univers tartrate 25 2-20 02-20 by mouth ity of mg tablet 09:42: 00:00 in the [place] 57 :00 morning Medical and 25 mg Branch in the evening. Patient takes half tablet twice daily metoprolol 2022-0 Yes [id number] 12.5mg Take 0.5 Univers tartrate 25 2-20 tablets by it y of mg tablet 00:00: [place] 00 the Medical morning Branch and 0.5 tablets in the evening. Patient takes half tablet twice daily losartan 50 2022-0 Yes [id number] 50mg Take 1 Univers mg tablet 2-20 tablet by ity o f 00:00: mouth in [place] the morning. Branch metoprolol 2023-0 Yes [id number] 12.5mg Take 0.5 Univers tartrate 25 2-20 tablets by it y of mg tablet 00:00: [place] morning Branch and 0.5 tablets in the evening. Patient takes half tablet twice daily losartan 50 2023-0 Yes [id number] 50mg Take 1 Univers mg tablet 2-20 tablet by ity o f 00:00: mouth in [place] the morning. Branch metoprolol 2023-0 Yes [id number] 12.5mg Take 0.5 Univers tartrate 25 2-20 tablets by it y of mg tablet 00:00: [place] the morning Branch and 0.5 tablets in the evening. Patient takes half tablet twice daily losartan 50 2023-0 Yes [id number] 50mg Take 1 Univers mg tablet 2-20 tablet by ity o f 00:00: mouth in [place] the morning. Branch metoprolol 2023-0 Yes [id number] 12.5mg Take 0.5 Univers tartrate 25 2-20 tablets by it y of mg tablet 00:00: mouth in [facility] the morning Branch and 0.5 tablets in the evening. Patient takes half tablet twice daily losartan 50 3-0 Yes [id number] 50mg Take 1 [facility] mg tablet 2-20 tablet by ity o f 00:00: mouth in [place] the morning. Branch metoprolol 2023-0 Yes [id number] 12.5mg Take 0.5 [facility] tartrate 25 2-20 tablets by it y of mg tablet 00:00: mouth in [facility] the morning Branch and 0.5 tablets in the evening. Patient takes half tablet twice daily losartan 50 3-0 Yes [id number] 50mg Take 1 [facility] mg tablet 2-20 tablet by ity o f 00:00: mouth in [place] the morning. Branch metoprolol 2023-0 Yes [id number] 12.5mg Take 0.5 [facility] tartrate 25 2-20 tablets by it y of mg tablet 00:00: mouth in [place] the Medical morning Branch and 0.5 tablets in the evening. Patient takes half tablet twice daily losartan 50 2023-0 Yes [id number] 50mg Take 1 [facility] mg tablet 2-20 tablet by ity o f 00:00: mouth in [place] the Medical morning. Branch metoprolol 2023-0 Yes [id number] 12.5mg Take 0.5 [facility] tartrate 25 2-20 tablets by it y of mg tablet 00:00: mouth in [place] the Medical morning Branch and 0.5 tablets in the evening. Patient takes half tablet twice daily losartan 50 2023-0 Yes [id number] 50mg Take 1 [facility] mg tablet 2-20 tablet by ity o f 00:00: mouth in [place] the Medical morning. Branch metoprolol 2023-0 Yes [id number] 12.5mg Take 0.5 [facility] tartrate 25 2-20 tablets by it y of mg tablet 00:00: mouth in [place] the morning Branch and 0.5 tablets in the evening. Patient takes half tablet twice daily losartan 50 3-0 Yes [id number] 50mg Take 1 [facility] mg tablet 2-20 tablet by ity o f 00:00: mouth in [place] the morning. Branch metoprolol 2023-0 Yes [id number] 12.5mg Take 0.5 [facility] tartrate 25 2-20 tablets by it y of mg tablet 00:00: mouth in [place] the Medical morning Branch and 0.5 tablets in the evening. Patient takes half tablet twice daily losartan 50 2023-0 Yes [id number] 50mg Take 1 [facility] mg tablet 2-20 tablet by ity o f 00:00: mouth in [place] the morning. Branch metoprolol 2023-0 Yes [id number] 12.5mg Take 0.5 [facility] tartrate 25 2-20 tablets by it y of mg tablet 00:00: mouth [facility] the [facility] morning Branch and 0.5 tablets in the evening. Patient takes half tablet twice daily losartan 50 2023-0 Yes [id number] 50mg Take 1 [facility] mg tablet 2-20 tablet by ity o f 00:00: mouth in [place] the Medical morning. Branch metoprolol 2023-0 Yes [id number] 12.5mg Take 0.5 [facility] tartrate 25 2-20 tablets by it y of mg tablet 00:00: mouth in [place] the Medical morning Branch and 0.5 tablets in the evening. Patient takes half tablet twice daily losartan 50 2023-0 Yes [id number] 50mg Take 1 [facility] mg tablet 2-20 tablet by ity o f 00:00: mouth in [place] the morning. Branch metoprolol 2023-0 Yes [id number] 12.5mg Take 0.5 [facility] tartrate 25 2-20 tablets by it y of mg tablet 00:00: mouth [facility] the morning Branch and 0.5 tablets in the evening. Patient takes half tablet twice daily losartan 50 2023-0 Yes [id number] 50mg Take 1 [facility] mg tablet 2-20 tablet by ity o f 00:00: mouth in [place] the morning. Branch metoprolol 2023-0 Yes [id number] 12.5mg Take 0.5 [facility] tartrate 25 2-20 tablets by it y of mg tablet 00:00: mouth in [facility] the morning Branch and 0.5 tablets in the evening. Patient takes half tablet twice daily losartan 50 3-0 Yes [id number] 50mg Take 1 [facility] mg tablet 2-20 tablet by ity o f 00:00: mouth in [place] the morning. Branch metoprolol 2023-0 Yes [id number] 12.5mg Take 0.5 [facility] tartrate 25 2-20 tablets by it y of mg tablet 00:00: mouth in [facility] the morning Branch and 0.5 tablets in the evening. Patient takes half tablet twice daily losartan 50 3-0 Yes [id number] 50mg Take 1 [facility] mg tablet 2-20 tablet by ity o f 00:00: mouth in [place] the morning. Branch metoprolol 2023-0 Yes [id number] 12.5mg Take 0.5 [facility] tartrate 25 2-20 tablets by it y of mg tablet 00:00: mouth in [facility] the morning Branch and 0.5 tablets in the evening. Patient takes half tablet twice daily losartan 50 3-0 Yes [id number] 50mg Take 1 [facility] mg tablet 2-20 tablet by ity o f 00:00: mouth in [place] the morning. Branch metoprolol 2023-0 Yes [id number] 12.5mg Take 0.5 [facility] tartrate 25 2-20 tablets by it y of mg tablet 00:00: mouth in [place] the Medical morning Branch and 0.5 tablets in the evening. Patient takes half tablet twice daily losartan 50 2023-0 Yes [id number] 50mg Take 1 [facility] mg tablet 2-20 tablet by ity o f 00:00: mouth in [place] the morning. Branch metoprolol 2023-0 Yes [id number] 12.5mg Take 0.5 [facility] tartrate 25 2-20 tablets by it y of mg tablet 00:00: mouth in [place] the morning Branch and 0.5 tablets in the evening. Patient takes half tablet twice daily losartan 50 3-0 Yes [id number] 50mg Take 1 [facility] mg tablet 2-20 tablet by ity o f 00:00: mouth in [place] the morning. Branch metoprolol 2023-0 Yes [id number] 12.5mg Take 0.5 [facility] tartrate 25 2-20 tablets by it y of mg tablet 00:00: mouth in [facility] the morning Branch and 0.5 tablets in the evening. Patient takes half tablet twice daily losartan 50 3-0 Yes [id number] 50mg Take 1 [facility] mg tablet 2-20 tablet by ity o f 00:00: mouth in [place] the morning. Branch metoprolol 3-0 Yes [id number] 12.5mg Take 0.5 [facility] tartrate 25 2-20 tablets by it y of mg tablet 00:00: mouth in [facility] the morning Branch and 0.5 tablets in the evening. Patient takes half tablet twice daily losartan 50 3-0 Yes [id number] 50mg Take 1 [facility] mg tablet 2-20 tablet by ity o f 00:00: mouth in [place] the morning. Branch metoprolol 2023-0 Yes [id number] 12.5mg Take 0.5 [facility] tartrate 25 2-20 tablets by it y of mg tablet 00:00: mouth in [facility] the morning Branch and 0.5 tablets in the evening. Patient takes half tablet twice daily losartan 50 3-0 Yes [id number] 50mg Take 1 [facility] mg tablet 2-20 tablet by ity o f 00:00: mouth in [place] the morning. Branch metoprolol 2023-0 Yes [id number] 12.5mg Take 0.5 [facility] tartrate 25 2-20 tablets by it y of mg tablet 00:00: mouth in [place] the Medical morning Branch and 0.5 tablets in the evening. Patient takes half tablet twice daily losartan 50 2023-0 Yes [id number] 50mg Take 1 [facility] mg tablet 2-20 tablet by ity o f 00:00: mouth in [place] 00 the Medical morning. Branch metoprolol 2022-0 Yes [id number] 12.5mg Take 0.5 [facility] tartrate 25 2-20 tablets by it y of mg tablet 00:00: mouth [place] 00 the Medical morning Branch and 0.5 tablets in the evening. Patient takes half tablet twice daily losartan 50 2022-0 Yes [id number] 50mg Take 1 [facility] mg tablet 2-20 tablet by ity o f 00:00: mouth in [place] [address] the Medical morning. Branch metoprolol 2022-0 Yes [id number] 12.5mg Take 0.5 [facility] tartrate 25 2-20 tablets by it y of mg tablet 00:00: mouth in [facility] s 00 the Medical morning Branch and 0.5 tablets in the evening. Patient takes half tablet twice daily metoprolol 2022-0 Yes [id number] 12.5mg Take 0.5 [facility] tartrate 25 2-20 tablets by it y of mg tablet 00:00: mouth in [facility] the Medical morning Branch and 0.5 tablets in the evening. Patient takes half tablet twice daily metoprolol 2022-0 Yes [id number] 12.5mg Take 0.5 [facility] tartrate 25 2-20 tablets by it y of mg tablet 00:00: mouth in [facility] the Medical morning Branch and 0.5 tablets in the evening. Patient takes half tablet twice daily losartan 50 2022-0 3- No [id number] 50mg Take 1 [facility] mg tablet 2-20 - tablet by ity of 00:00: 00:00 mouth in [place] 00 :00 the Medical morning. Branch MONTELUKAST 2022-0 Yes [id number] 10mg TAKE 1 [facility] 10 mg 2-14 TABLET BY ity of tablet 00:00: MOUTH IN [place] 00 THE Medical MORNING Branch MONTELUKAST 2022-0 Yes [id number] 10mg TAKE 1 [facility] 10 mg 2-14 TABLET BY ity of tablet 00:00: MOUTH IN [place] 00 THE Medical MORNING Branch MONTELUKAST 2022-0 Yes [id number] 10mg TAKE 1 [facility] 10 mg 2-14 TABLET BY ity of tablet 00:00: MOUTH IN [place] 00 THE [facility] MORNING Branch MONTELUKAST 2023-0 Yes [id number] 10mg TAKE 1 [facility] 10 mg 2-14 TABLET BY ity of tablet 00:00: MOUTH IN [place] 00 THE Medical MORNING Branch MONTEKAST Yes [id number] 10mg TAKE 1 [facility] 10 mg 2-14 TABLET BY ity of tablet 00:00: MOUTH IN [place] 00 THE Medical MORNING Branch MONTELUKAST Yes [id number] 10mg TAKE 1 [facility] 10 mg 2-14 TABLET BY ity of tablet 00:00: MOUTH IN [place] 00 THE Medical MORNING Branch MONTEKAST Yes [id number] 10mg TAKE 1 [facility] 10 mg 2-14 TABLET BY ity of tablet 00:00: MOUTH IN [place] 00 THE [facility] MORNING Branch MONTEKAST Yes [id number] 10mg TAKE 1 [facility] 10 mg 2-14 TABLET BY ity of tablet 00:00: MOUTH IN [place] 00 THE [facility] MORNING Branch MONTEKAST Yes [id number] 10mg TAKE 1 [facility] 10 mg 2-14 TABLET BY ity of tablet 00:00: MOUTH IN [place] 00 [facility] [id number] 10mg TAKE 1 [facility] 10 mg 2-14 TABLET BY ity of tablet 00:00: MOUTH IN [place] 00 THE [facility] MORNING [facility] Yes [id number] 10mg TAKE 1 [facility] 10 mg 2-14 TABLET BY ity of tablet 00:00: MOUTH IN [place] 00 THE [facility] MORNING [place] MONTEKAST Yes [id number] 10mg TAKE 1 [facility] 10 mg 2-14 TABLET BY ity of tablet 00:00: MOUTH IN [place] 00 THE [facility] MORNING [place] MONTEKAST Yes [id number] 10mg TAKE 1 [facility] 10 mg 2-14 TABLET BY ity of tablet 00:00: MOUTH IN [place] 00 THE [facility] MORNING [place] MONTEKAST Yes [id number] 10mg TAKE 1 [facility] 10 mg 2-14 TABLET BY ity of tablet 00:00: MOUTH IN [place] 00 THE [facility] MORNING [place] MONTELUKAST Yes [id number] 10mg TAKE 1 [facility] 10 mg 2-14 TABLET BY ity of tablet 00:00: MOUTH IN [place] 00 THE [facility] MORNING [place] MONTEKAST Yes [id number] 10mg TAKE 1 [facility] 10 mg 2-14 TABLET BY ity of tablet 00:00: MOUTH IN [place] 00 THE Medical MORNING Branch MONTELUKAST 2022-0 Yes [id number] 10mg TAKE 1 [facility] 10 mg 2-14 TABLET BY ity of tablet 00:00: MOUTH IN [place] 00 THE Medical MORNING Branch MONTELUKAST 2022-0 Yes [id number] 10mg TAKE 1 [facility] 10 mg 2-14 TABLET BY ity of tablet 00:00: MOUTH IN [place] 00 THE Medical MORNING Branch MONTELUKAST 2022-0 Yes [id number] 10mg TAKE 1 [facility] 10 mg 2-14 TABLET BY ity of tablet 00:00: MOUTH IN [place] 00 THE [facility] MORNING Branch MONTELUKAST 2022-0 2022- No [id number] 10mg TAKE 1 [facility] 10 mg 2-14 - TABLET BY ity of tablet 00:00: 00:00 MOUTH IN [place] 00 :00 THE [facility] Branch metFORMIN 2021- Yes [id number] 1000mg Take 1 [facility] 1,000 mg 2-12 tablet by ity of tablet 00:00: mouth in [place] 00 the [facility] morning [place] and 1 tablet in the evening. Take with meals. Omeprazole 2021- Yes [id number] 20mg Take 1 [facility] 20 mg 2-12 tablet by ity of tablet 00:00: mouth in [place] the morning. Branch metFORMIN 2021-05 Yes [id number] 1000mg Take 1 [facility] 1,000 mg 2-12 tablet by ity of tablet 00:00: mouth in [place] the [facility] and 1 tablet in the evening. Take with meals. Omeprazole 2021- Yes [id number] 20mg Take 1 [facility] 20 mg 2-12 tablet by ity of tablet 00:00: mouth in [place] the Medical morning. Branch metFORMIN 2021- Yes [id number] 1000mg Take 1 [facility] 1,000 mg 2-12 tablet by ity of tablet 00:00: mouth in [place] the [facility] morning [place] and 1 tablet in the evening. Take with meals. Omeprazole 2021- Yes [id number] 20mg Take 1 [facility] 20 mg 2-12 tablet by ity of tablet 00:00: mouth in [place] the morning. Branch metFORMIN 2021- Yes [id number] 1000mg Take 1 [facility] 1,000 mg 2-12 tablet by ity of tablet 00:00: mouth in [place] [address] the [facility] morning Branch and 1 tablet in the evening. Take with meals. Omeprazole 2021-1 Yes [id number] 20mg Take 1 [facility] 20 mg 2-12 tablet by ity of tablet 00:00: mouth in [place] the morning. Branch metFORMIN 2021-1 Yes [id number] 1000mg Take 1 [facility] 1,000 mg 2-12 tablet by ity of tablet 00:00: mouth in [place] [address] the morning Branch and 1 tablet in the evening. Take with meals. Omeprazole 2021-1 Yes [id number] 20mg Take 1 [facility] 20 mg 2-12 tablet by ity of tablet 00:00: mouth in [place] the morning. Branch metFORMIN 2021-1 Yes [id number] 1000mg Take 1 [facility] 1,000 mg 2-12 tablet by ity of tablet 00:00: mouth in [place] [address] the [facility] morning [place] and 1 tablet in the evening. Take with meals. Omeprazole 2021-1 Yes [id number] 20mg Take 1 [facility] 20 mg 2-12 tablet by ity of tablet 00:00: mouth in [place] the . Branch metFORMIN 2021-1 Yes [id number] 1000mg Take 1 [facility] 1,000 mg 2-12 tablet by ity of tablet 00:00: mouth in [place] [address] the [facility] [place] and 1 tablet in the evening. Take with meals. Omeprazole 2021-1 Yes [id number] 20mg Take 1 [facility] 20 mg 2-12 tablet by ity of tablet 00:00: mouth in [place] the . Branch metFORMIN 2021-1 Yes [id number] 1000mg Take 1 [facility] 1,000 mg 2-12 tablet by ity of tablet 00:00: mouth in [place] [address] the [facility] morning [place] and 1 tablet in the evening. Take with meals. Omeprazole 2021-1 Yes [id number] 20mg Take 1 [facility] 20 mg 2-12 tablet by ity of tablet 00:00: mouth in [place] the morning. Branch metFORMIN 2021-1 Yes [id number] 1000mg Take 1 [facility] 1,000 mg 2-12 tablet by ity of tablet 00:00: mouth in [place] [address] the [facility] morning [place] and 1 tablet in the evening. Take with meals. Omeprazole 2021-1 Yes [id number] 20mg Take 1 [facility] 20 mg 2-12 tablet by ity of tablet 00:00: mouth in [place] [address] the morning. Branch metFORMIN 2021-1 Yes [id number] 1000mg Take 1 [facility] 1,000 mg 2-12 tablet by ity of tablet 00:00: mouth in [place] the morning Branch and 1 tablet in the evening. Take with meals. Omeprazole 2021-1 Yes [id number] 20mg Take 1 [facility] 20 mg 2-12 tablet by ity of tablet 00:00: mouth in [place] the morning. Branch metFORMIN 2021-1 Yes [id number] 1000mg Take 1 [facility] 1,000 mg 2-12 tablet by ity of tablet 00:00: mouth in [place] the Branch and 1 tablet in the evening. Take with meals. Omeprazole 2021-1 Yes [id number] 20mg Take 1 [facility] 20 mg 2-12 tablet by ity of tablet 00:00: mouth in [place] the morning. Branch metFORMIN 2021-1 Yes [id number] 1000mg Take 1 [facility] 1,000 mg 2-12 tablet by ity of tablet 00:00: mouth in [place] the Branch and 1 tablet in the evening. Take with meals. Omeprazole 2021-1 Yes [id number] 20mg Take 1 [facility] 20 mg 2-12 tablet by ity of tablet 00:00: mouth in [place] the . Branch metFORMIN 2021-1 Yes [id number] 1000mg Take 1 [facility] 1,000 mg 2-12 tablet by ity of tablet 00:00: mouth in [place] [address] the [place] and 1 tablet in the evening. Take with meals. Omeprazole 2021-1 Yes [id number] 20mg Take 1 [facility] 20 mg 2-12 tablet by ity of tablet 00:00: mouth in [place] the morning. Branch metFORMIN 2021-1 Yes [id number] 1000mg Take 1 [facility] 1,000 mg 2-12 tablet by ity of tablet 00:00: mouth in [place] [address] the morning Branch and 1 tablet in the evening. Take with meals. Omeprazole 2-1 Yes [id number] 20mg Take 1 [facility] 20 mg 2-12 tablet by ity of tablet 00:00: mouth in [place] [address] the morning. Branch metFORMIN 2021-1 Yes [id number] 1000mg Take 1 [facility] 1,000 mg 2-12 tablet by ity of tablet 00:00: mouth in [place] [address] the Medical morning Branch and 1 tablet in the evening. Take with meals. Omeprazole 2021-1 Yes [id number] 20mg Take 1 [facility] 20 mg 2-12 tablet by ity of tablet 00:00: mouth in [place] the Medical morning. Branch Omeprazole 2021-1 Yes [id number] 20mg Take 1 [facility] 20 mg 2-12 tablet by ity of tablet 00:00: mouth in [place] the Medical morning. Branch Omeprazole 2021-1 Yes [id number] 20mg Take 1 [facility] 20 mg 2-12 tablet by ity of tablet 00:00: mouth in [place] the Medical morning. Branch Omeprazole 2021-1 Yes [id number] 20mg Take 1 [facility] 20 mg 2-12 tablet by ity of tablet 00:00: mouth in [place] the Medical morning. Branch Omeprazole 2021-1 Yes [id number] 20mg Take 1 [facility] 20 mg 2-12 tablet by ity of tablet 00:00: mouth in [place] the Medical morning. Branch Omeprazole 2021-1 Yes [id number] 20mg Take 1 [facility] 20 mg 2-12 tablet by ity of tablet 00:00: mouth in [place] the Medical morning. Branch Omeprazole 2021- Yes [id number] 20mg Take 1 [facility] 20 mg 2-12 tablet by ity of tablet 00:00: mouth in [place] the Medical morning. Branch Omeprazole 2021-1 Yes [id number] 20mg Take 1 [facility] 20 mg 2-12 tablet by ity of tablet 00:00: mouth in [place] the Medical morning. Branch Omeprazole 2021-1 Yes [id number] 20mg Take 1 [facility] 20 mg 2-12 tablet by ity of tablet 00:00: mouth in [place] the Medical morning. Branch Omeprazole 2021-1 Yes [id number] 20mg Take 1 [facility] 20 mg 2-12 tablet by ity of tablet 00:00: mouth in [place] the Medical morning. Branch Omeprazole 2021-1 Yes [id number] 20mg Take 1 [facility] 20 mg 2-12 tablet by ity of tablet 00:00: mouth in [place] the Medical morning. Branch Omeprazole 2-1 Yes [id number] 20mg Take 1 [facility] 20 mg 2-12 tablet by ity of tablet 00:00: mouth in [place] the Medical morning. Branch Omeprazole 2021-1 Yes [id number] 20mg Take 1 [facility] 20 mg 2-12 tablet by ity of tablet 00:00: mouth in [place] the morning. Branch Omeprazole 2021-05 Yes [id number] 20mg Take 1 [facility] 20 mg 2-12 tablet by ity of tablet 00:00: mouth in [place] the . Branch Omeprazole 2021-05 Yes [id number] 20mg Take 1 [facility] 20 mg 2-12 tablet by ity of tablet 00:00: mouth in [place] the . Branch Omeprazole 2021-05 Yes [id number] 20mg Take 1 [facility] 20 mg 2-12 tablet by ity of tablet 00:00: mouth in [place] the morning. Branch Omeprazole 2021-05 Yes [id number] 20mg Take 1 [facility] 20 mg 2-12 tablet by ity of tablet 00:00: mouth in [place] the . Branch metFORMIN 2021-053- No [id number] 1000mg Take 1 [facility] 1,000 mg 2-12 04-26 tablet by ity o f tablet 00:00: 00:00 mouth in [place] 00 :00 the Branch and 1 tablet in the evening. Take with meals. apixaban 2021-05 Yes 1358 5mg Take 1 [facility] (ELIQUIS) 5 1-25 tablet by ity of mg tablet 00:00: mouth in [place] [address] the Branch and 1 tablet in the evening. Indication s: atrial fibrillati on apixaban 2021-05 Yes 1358 5mg Take 1 [facility] (ELIQUIS) 5 1-25 tablet by ity of mg tablet 00:00: mouth in [place] [address] the Branch and 1 tablet in the evening. Indication s: atrial fibrillati on apixaban 2021-05 Yes 1358 5mg Take 1 [facility] (ELIQUIS) 5 1-25 tablet by ity of mg tablet 00:00: mouth in [facility] 00 the morning Branch and 1 tablet in the evening. Indication s: atrial fibrillati on apixaban 2021-05 Yes 1358 5mg Take 1 [facility] (ELIQUIS) 5 1-25 tablet by ity of mg tablet 00:00: mouth in [place] [address] the morning Branch and 1 tablet in [...] evening. Indication s: atrial fibrillati on losartan 2021-05- No 25mg Take 25 mg [facility] mg tablet 06-03 by mouth ity o f 14:08: 00:00 daily. [place] 17 : [facility] losartan 25 2021-05- No 25mg Take 25 mg Univers mg tablet 06-03 by mouth ity o f 14:08: 00:00 daily. [place] 17 :00 [facility] losartan 25 2021-05- No 25mg Take 25 mg Univers mg tablet 06-03 by mouth ity o f 14:08: 00:00 daily. [place] 17 : [facility] losartan 25 2021-05- No 25mg Take 25 mg Univers mg tablet 06-03 by mouth ity o f 14:08: 00:00 daily. [place] [address] :00 Medical Branch metoprolol 2021-05 Yes 25mg Take 25 mg U nivers tartrate 25 1-22 by mouth ity of mg tablet 13:45: in the [place] [address] morning Medical and 25 mg Branch in the evening. Patient takes half tablet twice daily metoprolol 2021-1 Yes 25mg Take 25 mg U nivers tartrate 25 1-22 by mouth ity of mg tablet 13:45: in the [place] [address] morning Medical and 25 mg Branch in the evening. Patient takes half tablet twice daily metoprolol 2021- Yes 25mg Take 25 mg U nivers tartrate 25 1-22 by mouth ity of mg tablet 13:45: in the [place] [address] morning Medical and 25 mg Branch in the evening. Patient takes half tablet twice daily metoprolol 2021- Yes 25mg Take 25 mg U nivers tartrate 25 1-22 by mouth ity of mg tablet 13:45: in the [place] [address] morning Medical and 25 mg Branch in the evening. Patient takes half tablet twice daily metoprolol 2021- Yes 25mg Take 25 mg U nivers tartrate 25 1-22 by mouth ity of mg tablet 13:45: in the [place] [address] morning Medical and 25 mg Branch in the evening. Patient takes half tablet twice daily metoprolol 2021-05 Yes 25mg Take 25 mg U nivers tartrate 25 1-22 by mouth ity of mg tablet 13:45: in the [place] [address] morning Medical and 25 mg Branch in the evening. Patient takes half tablet twice daily metoprolol 2021- Yes 25mg Take 25 mg U nivers tartrate 25 1-22 by mouth ity of mg tablet 13:45: in the [place] [address] morning Medical and 25 mg Branch in the evening. Patient takes half tablet twice daily metoprolol 2021-1 Yes 25mg Take 25 mg U nivers tartrate 25 1-22 by mouth ity of mg tablet 13:45: in the [place] [address] morning Medical and 25 mg Branch in the evening. Patient takes half tablet twice daily metoprolol 2021-1 Yes 25mg Take 25 mg U nivers tartrate 25 1-22 by mouth ity of mg tablet 13:45: in the [place] [address] morning Medical and 25 mg Branch in the evening. Patient takes half tablet twice daily metoprolol 2021-1 Yes 25mg Take 25 mg U nivers tartrate 25 1-22 by mouth ity of mg tablet 13:45: in the [place] [address] morning Medical and 25 mg Branch in the evening. Patient takes half tablet twice daily metoprolol 2021-05 Yes 25mg Take 25 mg U nivers tartrate 25 1-22 by mouth ity of mg tablet 13:45: in the [place] [address] morning Medical and 25 mg Branch in the evening. Patient takes half tablet twice daily metoprolol 2021-05 Yes 25mg Take 25 mg U nivers tartrate 25 1-22 by mouth ity of mg tablet 13:45: in the [place] [address] morning Medical and 25 mg Branch in the evening. Patient takes half tablet twice daily metoprolol 2021-05 Yes 25mg Take 25 mg U nivers tartrate 25 1-22 by mouth ity of mg tablet 13:45: in the [place] [address] morning Medical and 25 mg Branch in the evening. Patient takes half tablet twice daily metoprolol 2021-05 Yes 25mg Take 25 mg U nivers tartrate 25 1-22 by mouth ity of mg tablet 13:45: in the [place] [address] morning Medical and 25 mg Branch in the evening. Patient takes half tablet twice daily metoprolol 2021-05 Yes 25mg Take 25 mg U nivers tartrate 25 1-22 by mouth ity of mg tablet 13:45: in the [place] [address] morning Medical and 25 mg Branch in the evening. Patient takes half tablet twice daily metoprolol 2021-05 Yes 25mg Take 25 mg U nivers tartrate 25 1-22 by mouth ity of mg tablet 13:45: in the [place] [address] morning Medical and 25 mg Branch in the evening. Patient takes half tablet twice daily metoprolol 2021-05 Yes 25mg Take 25 mg U nivers tartrate 25 1-22 by mouth ity of mg tablet 13:45: in the [place] [address] morning Medical and 25 mg Branch in the evening. Patient takes half tablet twice daily albuterol 2021-05 Yes [id number] 2{puff} Inhale 2 [facility] (PROAIR 1-22 Puffs ity of HFA) 90 00:00: every 6 [place] mcg/actuati 00 (six) Medical on inhaler hours as Branc h needed for Wheezing, Shortness of Breath or Chest tightness. losartan 2021-05 Yes [id number] 100mg Take 1 Un [place] 100 mg 1-22 tablet by ity of tablet 00:00: mouth in [place] 00 the Medical morning. Branch losartan 2021-05 Yes [id number] 100mg Take 1 Un [place] 100 mg 1-22 tablet by ity of tablet 00:00: mouth in [place] 00 the Medical morning. Branch albuterol 2021-05 Yes [id number] 2{puff} Inhale 2 [facility] (PROAIR 1-22 Puffs ity of HFA) 90 00:00: every 6 [place] mcg/actuati 00 (six) Medical on inhaler hours as Branc h needed for Wheezing, Shortness of Breath or Chest tightness. albuterol 2021-05 Yes [id number] 2{puff} Inhale 2 [facility] (PROAIR 1-22 Puffs ity of HFA) 90 00:00: every 6 [place] mcg/actuati 00 (six) Medical on inhaler hours as Branc h needed for Wheezing, Shortness of Breath or Chest tightness. losartan 2021-05 Yes [id number] 100mg Take 1 [facility] [place] 100 mg 1-22 tablet by [facility] of tablet 00:00: mouth in [place] 00 the Medical morning. Branch albuterol 2021-05 Yes [id number] 2{puff} Inhale 2 [facility] (PROAIR 1-22 Puffs ity of HFA) 90 00:00: every 6 [place] mcg/actuati 00 (six) Medical on inhaler hours as Branc h needed for Wheezing, Shortness of Breath or Chest tightness. losartan 2021-05 Yes [id number] 100mg Take 1 [facility] [place] 100 mg 1-22 tablet by [facility] of tablet 00:00: mouth in [place] 00 the Medical morning. Branch albuterol 2021-05 Yes [id number] 2{puff} Inhale 2 [facility] (PROAIR 1-22 Puffs ity of HFA) 90 00:00: every 6 [place] mcg/actuati 00 (six) Medical on inhaler hours as Branc h needed for Wheezing, Shortness of Breath or Chest tightness. losartan 2021-05 Yes [id number] 100mg Take 1 [facility] [place] 100 mg 1-22 tablet by [facility] of tablet 00:00: mouth in [place] 00 the Medical morning. Branch albuterol 2021-05 Yes [id number] 2{puff} Inhale 2 [facility] (PROAIR 1-22 Puffs ity of HFA) 90 00:00: every 6 [place] mcg/actuati 00 (six) Medical on inhaler hours as Branc h needed for Wheezing, Shortness of Breath or Chest tightness. losartan 2021-05 Yes [id number] 100mg Take 1 [facility] [place] 100 mg 1-22 tablet by it[facility] of tablet 00:00: mouth in [place] 00 the Medical morning. Branch albuterol 2021-05 Yes [id number] 2{puff} Inhale 2 [facility] (PROAIR 1-22 Puffs ity of HFA) 90 00:00: every 6 [place] mcg/actuati 00 (six) Medical on inhaler hours as Branc h needed for Wheezing, Shortness of Breath or Chest tightness. losartan 2021-05 Yes [id number] 100mg Take 1 [facility] [place] 100 mg 1-22 tablet by [facility] of tablet 00:00: mouth in [place] 00 the Medical morning. Branch albuterol 2021-05 Yes [id number] 2{puff} Inhale 2 [facility] (PROAIR 1-22 Puffs ity of HFA) 90 00:00: every 6 [place] mcg/actuati 00 (six) Medical on inhaler hours as Branc h needed for Wheezing, Shortness of Breath or Chest tightness. losartan 2021-05 Yes [id number] 100mg Take 1 [facility] [place] 100 mg 1-22 tablet by [facility] of tablet 00:00: mouth in [place] 00 the Medical morning. Branch albuterol 2021-05 Yes [id number] 2{puff} Inhale 2 [facility] (PROAIR 1-22 Puffs ity of HFA) 90 00:00: every 6 [place] mcg/actuati 00 (six) Medical on inhaler hours as Branc h needed for Wheezing, Shortness of Breath or Chest tightness. losartan 2021-05 Yes [id number] 100mg Take 1 [facility] [place] 100 mg 1-22 tablet by [facility] of tablet 00:00: mouth in [place] 00 the Medical morning. Branch albuterol 2021-05 Yes [id number] 2{puff} Inhale 2 [facility] (PROAIR 1-22 Puffs ity of HFA) 90 00:00: every 6 [place] mcg/actuati 00 (six) Medical on inhaler hours as Branc h needed for Wheezing, Shortness of Breath or Chest tightness. losartan 2021-05 Yes [id number] 100mg Take 1 [facility] [place] 100 mg 1-22 tablet by [facility] of tablet 00:00: mouth in [place] 00 the Medical morning. Branch losartan 2021-05 Yes [id number] 100mg Take 1 [facility] [place] 100 mg 1-22 tablet by [facility] of tablet 00:00: mouth in [place] 00 the Medical morning. Branch albuterol 2021-05 Yes [id number] 2{puff} Inhale 2 [facility] (PROAIR 1-22 Puffs ity of HFA) 90 00:00: every 6 [place] mcg/actuati 00 (six) Medical on inhaler hours as Branc h needed for Wheezing, Shortness of Breath or Chest tightness. losartan 2021-05 Yes [id number] 100mg Take 1 [facility] [place] 100 mg 1-22 tablet by [facility] of tablet 00:00: mouth in [place] 00 the Medical morning. Branch albuterol 2021-05 Yes [id number] 2{puff} Inhale 2 [facility] (PROAIR 1-22 Puffs ity of HFA) 90 00:00: every 6 [place] mcg/actuati 00 (six) Medical on inhaler hours as Branc h needed for Wheezing, Shortness of Breath or Chest tightness. losartan 2021-05 Yes [id number] 100mg Take 1 [facility] [place] 100 mg 1-22 tablet by ity of tablet 00:00: mouth in [place] 00 the Medical morning. Branch albuterol 2021-05 Yes [id number] 2{puff} Inhale 2 [facility] (PROAIR 1-22 Puffs ity of HFA) 90 00:00: every 6 [place] mcg/actuati 00 (six) Medical on inhaler hours as Branc h needed for Wheezing, Shortness of Breath or Chest tightness. losartan 2021-05 Yes [id number] 100mg Take 1 [facility] [place] 100 mg 1-22 tablet by [facility] of tablet 00:00: mouth in [place] 00 the Medical morning. Branch albuterol 2021-05 Yes [id number] 2{puff} Inhale 2 [facility] (PROAIR 1-22 Puffs ity of HFA) 90 00:00: every 6 [place] mcg/actuati 00 (six) Medical on inhaler hours as Branc h needed for Wheezing, Shortness of Breath or Chest tightness. losartan 2021-05 Yes [id number] 100mg Take 1 [facility] [place] 100 mg 1-22 tablet by [facility] of tablet 00:00: mouth in [place] 00 the Medical morning. Branch albuterol 2021-05 Yes [id number] 2{puff} Inhale 2 [facility] (PROAIR 1-22 Puffs ity of HFA) 90 00:00: every 6 [place] mcg/actuati 00 (six) Medical on inhaler hours as Branc h needed for Wheezing, Shortness of Breath or Chest tightness. losartan 2021-05 Yes [id number] 100mg Take 1 [place] 100 mg 1-22 tablet by [facility] of tablet 00:00: mouth in [place] 00 the Medical morning. Branch albuterol 2021-05 Yes [id number] 2{puff} Inhale 2 [facility] (PROAIR 1-22 Puffs ity of HFA) 90 00:00: every 6 [place] mcg/actuati 00 (six) Medical on inhaler hours as Branc h needed for Wheezing, Shortness of Breath or Chest tightness. losartan 2021-05 Yes [id number] 100mg Take 1 [facility] [place] 100 mg 1-22 tablet by [facility] of tablet 00:00: mouth in [place] 00 the Medical morning. Branch albuterol 2021-05 Yes [id number] 2{puff} Inhale 2 [facility] (PROAIR 1-22 Puffs ity of HFA) 90 00:00: every 6 [place] mcg/actuati 00 (six) Medical on inhaler hours as Branc h needed for Wheezing, Shortness of Breath or Chest tightness. losartan 2021-05 Yes [id number] 100mg Take 1 [facility] [place] 100 mg 1-22 tablet by [facility] of tablet 00:00: mouth in [place] 00 the Medical morning. Branch albuterol 2021-05 Yes [id number] 2{puff} Inhale 2 [facility] (PROAIR 1-22 Puffs ity of HFA) 90 00:00: every 6 [place] mcg/actuati 00 (six) Medical on inhaler hours as Branc h needed for Wheezing, Shortness of Breath or Chest tightness. losartan 2021-05 Yes [id number] 100mg Take 1 [facility] [place] 100 mg 1-22 tablet by ity of tablet 00:00: mouth in [place] 00 the Medical morning. Branch albuterol 2021-05 Yes [id number] 2{puff} Inhale 2 [facility] (PROAIR 1-22 Puffs ity of HFA) 90 00:00: every 6 [place] mcg/actuati 00 (six) Medical on inhaler hours as Branc h needed for Wheezing, Shortness of Breath or Chest tightness. losartan 2021-05 Yes [id number] 100mg Take 1 [facility] [place] 100 mg 1-22 tablet by ity of tablet 00:00: mouth in [place] 00 the Medical morning. Branch albuterol 2021-05 Yes [id number] 2{puff} Inhale 2 [facility] (PROAIR 1-22 Puffs ity of HFA) 90 00:00: every 6 [place] mcg/actuati 00 (six) Medical on inhaler hours as Branc h needed for Wheezing, Shortness of Breath or Chest tightness. losartan 2021-05 Yes [id number] 100mg Take 1 [facility] [place] 100 mg 1-22 tablet by it[facility] of tablet 00:00: mouth in [place] 00 the Medical morning. Branch albuterol 2021-05 Yes [id number] 2{puff} Inhale 2 [facility] (PROAIR 1-22 Puffs ity of HFA) 90 00:00: every 6 [place] mcg/actuati 00 (six) Medical on inhaler hours as Branc h needed for Wheezing, Shortness of Breath or Chest tightness. losartan 2021-05 Yes [id number] 100mg Take 1 [facility] [place] 100 mg 1-22 tablet by ity of tablet 00:00: mouth in [place] 00 the Medical morning. Branch albuterol 2021-05 Yes [id number] 2{puff} Inhale 2 [facility] (PROAIR 1-22 Puffs ity of HFA) 90 00:00: every 6 [place] mcg/actuati 00 (six) Medical on inhaler hours as Branc h needed for Wheezing, Shortness of Breath or Chest tightness. losartan 2021-05 Yes [id number] 100mg Take 1 [facility] [place] 100 mg 1-22 tablet by ity of tablet 00:00: mouth in [place] 00 the Medical morning. Branch albuterol 2021-05 Yes [id number] 2{puff} Inhale 2 [facility] (PROAIR 1-22 Puffs ity of HFA) 90 00:00: every 6 [place] mcg/actuati 00 (six) Medical on inhaler hours as Branc h needed for Wheezing, Shortness of Breath or Chest tightness. losartan 2021-05 Yes [id number] 100mg Take 1 [facility] [place] 100 mg 1-22 tablet by it[facility] of tablet 00:00: mouth in [place] 00 the Medical morning. Branch albuterol 2021-05 Yes [id number] 2{puff} Inhale 2 [facility] (PROAIR 1-22 Puffs ity of HFA) 90 00:00: every 6 [place] mcg/actuati 00 (six) Medical on inhaler hours as Branc h needed for Wheezing, Shortness of Breath or Chest tightness. losartan 2021-05 Yes [id number] 100mg Take 1 [place] 100 mg 1-22 tablet by ity of tablet 00:00: mouth in [place] 00 the Medical morning. Branch albuterol 2021-05 Yes [id number] 2{puff} Inhale 2 [facility] (PROAIR 1-22 Puffs ity of HFA) 90 00:00: every 6 [place] mcg/actuati 00 (six) Medical on inhaler hours as Branc h needed for Wheezing, Shortness of Breath or Chest tightness. losartan 2021-05 Yes [id number] 100mg Take 1 [facility] [place] 100 mg 1-22 tablet by it[facility] of tablet 00:00: mouth in [place] 00 the Medical morning. Branch albuterol 2021-05 Yes [id number] 2{puff} Inhale 2 [facility] (PROAIR 1-22 Puffs ity of HFA) 90 00:00: every 6 [place] mcg/actuati 00 (six) Medical on inhaler hours as Branc h needed for Wheezing, Shortness of Breath or Chest tightness. losartan 2021-05 Yes [id number] 100mg Take 1 [place] 100 mg 1-22 tablet by it[facility] of tablet 00:00: mouth in [place] 00 the Medical morning. Branch albuterol 2021-05 Yes [id number] 2{puff} Inhale 2 [facility] (PROAIR 1-22 Puffs ity of HFA) 90 00:00: every 6 [place] mcg/actuati 00 (six) Medical on inhaler hours as Branc h needed for Wheezing, Shortness of Breath or Chest tightness. losartan 2021-05 Yes [id number] 100mg Take 1 [place] 100 mg 1-22 tablet by ity of tablet 00:00: mouth in [place] 00 the Medical morning. Branch albuterol 2021-05 Yes [id number] 2{puff} Inhale 2 [facility] (PROAIR 1-22 Puffs ity of HFA) 90 00:00: every 6 [place] mcg/actuati 00 (six) Medical on inhaler hours as Branc h needed for Wheezing, Shortness of Breath or Chest tightness. losartan 2021-05 Yes [id number] 100mg Take 1 [facility] [place] 100 mg 1-22 tablet by ity of tablet 00:00: mouth in [place] 00 the Medical morning. Branch albuterol 2021-05 Yes [id number] 2{puff} Inhale 2 [facility] (PROAIR 1-22 Puffs ity of HFA) 90 00:00: every 6 [place] mcg/actuati 00 (six) Medical on inhaler hours as Branc h needed for Wheezing, Shortness of Breath or Chest tightness. losartan 2021-05 Yes [id number] 100mg Take 1 [place] 100 mg 1-22 tablet by ity of tablet 00:00: mouth in [place] 00 the Medical morning. Branch albuterol 2021-05 Yes [id number] 2{puff} Inhale 2 [facility] (PROAIR 1-22 Puffs ity of HFA) 90 00:00: every 6 [place] mcg/actuati 00 (six) Medical on inhaler hours as Branc h needed for Wheezing, Shortness of Breath or Chest tightness. losartan 2021-05 Yes [id number] 100mg Take 1 [place] 100 mg 1-22 tablet by ity of tablet 00:00: mouth in [place] 00 the Medical morning. Branch albuterol 2021-05 Yes [id number] 2{puff} Inhale 2 [facility] (PROAIR 1-22 Puffs ity of HFA) 90 00:00: every 6 [place] mcg/actuati 00 (six) Medical on inhaler hours as Branc h needed for Wheezing, Shortness of Breath or Chest tightness. losartan 2021-05 Yes [id number] 100mg Take 1 [facility] [place] 100 mg 1-22 tablet by ity of tablet 00:00: mouth in [place] 00 the Medical morning. Branch albuterol 2021-05 Yes [id number] 2{puff} Inhale 2 [facility] (PROAIR 1-22 Puffs ity of HFA) 90 00:00: every 6 [place] mcg/actuati 00 (six) Medical on inhaler hours as Branc h needed for Wheezing, Shortness of Breath or Chest tightness. losartan 2021-05 Yes [id number] 100mg Take 1 [place] 100 mg 1-22 tablet by ity of tablet 00:00: mouth in [place] 00 the Medical morning. Branch albuterol 2021-05 Yes [id number] 2{puff} Inhale 2 [facility] (PROAIR 1-22 Puffs ity of HFA) 90 00:00: every 6 [place] mcg/actuati 00 (six) Medical on inhaler hours as Branc h needed for Wheezing, Shortness of Breath or Chest tightness. losartan 2021-05 Yes [id number] 100mg Take 1 [place] 100 mg 1-22 tablet by ity of tablet 00:00: mouth in [place] 00 the Medical morning. Branch albuterol 2021-05 Yes [id number] 2{puff} Inhale 2 [facility] (PROAIR 1-22 Puffs ity of HFA) 90 00:00: every 6 [place] mcg/actuati 00 (six) Medical on inhaler hours as Branc h needed for Wheezing, Shortness of Breath or Chest tightness. losartan 2021-05 Yes [id number] 100mg Take 1 [place] 100 mg 1-22 tablet by ity of tablet 00:00: mouth in [place] 00 the Medical morning. Branch albuterol 2021-05 Yes [id number] 2{puff} Inhale 2 [facility] (PROAIR 1-22 Puffs ity of HFA) 90 00:00: every 6 [place] mcg/actuati 00 (six) Medical on inhaler hours as Branc h needed for Wheezing, Shortness of Breath or Chest tightness. losartan 2021-05 Yes [id number] 100mg Take 1 [place] 100 mg 1-22 tablet by ity of tablet 00:00: mouth in [place] 00 the Medical morning. Branch albuterol 2021-05 Yes [id number] 2{puff} Inhale 2 [facility] (PROAIR 1-22 Puffs ity of HFA) 90 00:00: every 6 [place] mcg/actuati 00 (six) Medical on inhaler hours as Branc h needed for Wheezing, Shortness of Breath or Chest tightness. losartan 2021-05 Yes [id number] 100mg Take 1 [place] 100 mg 1-22 tablet by ity of tablet 00:00: mouth in [place] 00 the Medical morning. Branch albuterol 2021-05 Yes [id number] 2{puff} Inhale 2 [facility] (PROAIR 1-22 Puffs ity of HFA) 90 00:00: every 6 [place] mcg/actuati 00 (six) Medical on inhaler hours as Branc h needed for Wheezing, Shortness of Breath or Chest tightness. losartan 2021-05 Yes [id number] 100mg Take 1 [place] 100 mg 1-22 tablet by ity of tablet 00:00: mouth in [place] 00 the Medical morning. Branch albuterol 2021-05 Yes [id number] 2{puff} Inhale 2 [facility] (PROAIR 1-22 Puffs ity of HFA) 90 00:00: every 6 [place] mcg/actuati 00 (six) Medical on inhaler hours as Branc h needed for Wheezing, Shortness of Breath or Chest tightness. losartan 2021-05 Yes [id number] 100mg Take 1 [place] 100 mg 1-22 tablet by ity of tablet 00:00: mouth in [place] 00 the Medical morning. Branch albuterol 2021-05 Yes [id number] 2{puff} Inhale 2 [facility] (PROAIR 1-22 Puffs ity of HFA) 90 00:00: every 6 [place] mcg/actuati 00 (six) Medical on inhaler hours as Branc h needed for Wheezing, Shortness of Breath or Chest tightness. losartan 2021-05 Yes [id number] 100mg Take 1 [place] 100 mg 1-22 tablet by ity of tablet 00:00: mouth in [place] 00 the Medical morning. Branch apixaban Yes 1358 5mg Take 1 [facility] (ELIQUIS) 5 9-30 tablet by ity of mg tablet 00:00: mouth in [facility] 00 the Medical morning Branch and 1 tablet in the evening. Indication s: atrial fibrillati on apixaban Yes 1358 5mg Take 1 [facility] (ELIQUIS) 5 9-30 tablet by ity of mg tablet 00:00: mouth in [facility] 00 the Medical morning Branch and 1 [...] Indication s: atrial fibrillati on apixaban 0 2021- No 1358 5mg Take 1 [facility] (ELIQUIS) 5 9-30 11-25 tablet by it y of mg tablet 00:00: 00:00 mouth in [place] 00 :00 the Medical morning Branch and 1 tablet in the evening. Indication s: atrial fibrillati on apixaban 2021-0 2021- No 1358 5mg Take 1 [facility] (ELIQUIS) 5 9-30 11-25 tablet by it y of mg tablet 00:00: 00:00 mouth in [place] 00 :00 the Medical morning Branch and 1 tablet in the evening. Indication s: atrial fibrillati on metFORMIN 2022-0 Yes [id number] 1000mg Take 1 [facility] 1,000 mg 9-23 tablet by ity of tablet 00:00: mouth in [place] [address] the Branch and 1 tablet in the evening. Take with meals. Omeprazole 2022-0 Yes [id number] 20mg Take 1 [facility] 20 mg 9-23 tablet by ity of tablet 00:00: mouth in [place] the . Branch metFORMIN 2022-0 Yes [id number] 1000mg Take 1 [facility] 1,000 mg 9-23 tablet by ity of tablet 00:00: mouth in [place] [address] the morning Branch and 1 tablet in the evening. Take with meals. Omeprazole 2022-0 Yes [id number] 20mg Take 1 [facility] 20 mg 9-23 tablet by ity of tablet 00:00: mouth in [place] the . Branch metFORMIN 2022-0 Yes [id number] 1000mg Take 1 [facility] 1,000 mg 9-23 tablet by ity of tablet 00:00: mouth in [place] [address] the Branch and 1 tablet in the evening. Take with meals. Omeprazole 2022-0 Yes [id number] 20mg Take 1 [facility] 20 mg 9-23 tablet by ity of tablet 00:00: mouth in [place] the . Branch metFORMIN 2022-0 Yes [id number] 1000mg Take 1 [facility] 1,000 mg 9-23 tablet by ity of tablet 00:00: mouth in [place] [address] the Branch and 1 tablet in the evening. Take with meals. Omeprazole 2022-0 Yes [id number] 20mg Take 1 [facility] 20 mg 9-23 tablet by ity of tablet 00:00: mouth in [place] the . Branch metFORMIN 2022-0 Yes [id number] 1000mg Take 1 [facility] 1,000 mg 9-23 tablet by ity of tablet 00:00: mouth in [place] [address] the Branch and 1 tablet in the evening. Take with meals. Omeprazole 2022-0 Yes [id number] 20mg Take 1 [facility] 20 mg 9-23 tablet by ity of tablet 00:00: mouth in [place] [address] the morning. Branch metFORMIN 2022-0 Yes [id number] 1000mg Take 1 [facility] 1,000 mg 9-23 tablet by ity of tablet 00:00: mouth in [place] [address] the Medical morning Branch and 1 tablet in the evening. Take with meals. Omeprazole 2022-0 Yes [id number] 20mg Take 1 [facility] 20 mg 9-23 tablet by ity of tablet 00:00: mouth in [place] the morning. Branch metFORMIN 2022-0 Yes [id number] 1000mg Take 1 [facility] 1,000 mg 9-23 tablet by ity of tablet 00:00: mouth in [place] [address] the morning Branch and 1 tablet in the evening. Take with meals. Omeprazole 2022-0 Yes [id number] 20mg Take 1 [facility] 20 mg 9-23 tablet by ity of tablet 00:00: mouth in [place] the morning. Branch metFORMIN 2022-0 Yes [id number] 1000mg Take 1 [facility] 1,000 mg 9-23 tablet by ity of tablet 00:00: mouth in [place] [address] the morning Branch and 1 tablet in the evening. Take with meals. Omeprazole 2022-0 Yes [id number] 20mg Take 1 [facility] 20 mg 9-23 tablet by ity of tablet 00:00: mouth in [place] the morning. Branch metFORMIN 2022-0 Yes [id number] 1000mg Take 1 [facility] 1,000 mg 9-23 tablet by ity of tablet 00:00: mouth in [place] [address] the morning Branch and 1 tablet in the evening. Take with meals. Omeprazole 2022-0 Yes [id number] 20mg Take 1 [facility] 20 mg 9-23 tablet by ity of tablet 00:00: mouth in [place] the . Branch metFORMIN 2022-0 Yes [id number] 1000mg Take 1 [facility] 1,000 mg 9-23 tablet by ity of tablet 00:00: mouth in [place] [address] the morning Branch and 1 tablet in the evening. Take with meals. Omeprazole 2022-0 Yes [id number] 20mg Take 1 [facility] 20 mg 9-23 tablet by ity of tablet 00:00: mouth in [place] the morning. Branch metFORMIN 2022-0 Yes [id number] 1000mg Take 1 [facility] 1,000 mg 9-23 tablet by ity of tablet 00:00: mouth in [place] [address] the morning Branch and 1 tablet in the evening. Take with meals. Omeprazole 2022-0 Yes [id number] 20mg Take 1 [facility] 20 mg 9-23 tablet by ity of tablet 00:00: mouth in [place] [address] the . Branch metFORMIN 2022-0 Yes [id number] 1000mg Take 1 [facility] 1,000 mg 9-23 tablet by ity of tablet 00:00: mouth in [place] the Branch and 1 tablet in the evening. Take with meals. Omeprazole 2022-0 Yes [id number] 20mg Take 1 [facility] 20 mg 9-23 tablet by ity of tablet 00:00: mouth in [place] the morning. Branch metFORMIN 2022-0 Yes [id number] 1000mg Take 1 [facility] 1,000 mg 9-23 tablet by ity of tablet 00:00: mouth in [address] Branch and 1 tablet in the evening. Take with meals. Omeprazole 2022-0 Yes [id number] 20mg Take 1 [facility] 20 mg 9-23 tablet by ity of tablet 00:00: mouth in [place] [address] the . Branch metFORMIN 2022-0 Yes [id number] 1000mg Take 1 [facility] 1,000 mg 9-23 tablet by ity of tablet 00:00: mouth in [address] [place] and 1 tablet in the evening. Take with meals. Omeprazole 2022-0 Yes [id number] 20mg Take 1 [facility] 20 mg 9-23 tablet by ity of tablet 00:00: mouth in [place] the . Branch metFORMIN 2022-0 Yes [id number] 1000mg Take 1 [facility] 1,000 mg 9-23 tablet by ity of tablet 00:00: mouth in [address] [place] and 1 tablet in the evening. Take with meals. Omeprazole 2022-0 Yes [id number] 20mg Take 1 [facility] 20 mg 9-23 tablet by ity of tablet 00:00: mouth in [place] the . Branch metFORMIN 2022-0 Yes [id number] 1000mg Take 1 [facility] 1,000 mg 9-23 tablet by ity of tablet 00:00: mouth in [address] [place] and 1 tablet in the evening. Take with meals. Omeprazole 2022-0 Yes [id number] 20mg Take 1 [facility] 20 mg 9-23 tablet by ity of tablet 00:00: mouth in [place] [address] the morning. Branch metFORMIN 2022-0 Yes [id number] 1000mg Take 1 [facility] 1,000 mg 9-23 tablet by ity of tablet 00:00: mouth in [address] morning Branch and 1 tablet in the evening. Take with meals. Omeprazole 2022-0 Yes [id number] 20mg Take 1 [facility] 20 mg 9-23 tablet by ity of tablet 00:00: mouth in [place] 00 the Medical morning. Branch metFORMIN 2-0 Yes [id number] 1000mg Take 1 [facility] 1,000 mg 9-23 tablet by ity of tablet 00:00: mouth in [place] 00 the Medical morning Branch and 1 tablet in the evening. Take with meals. Omeprazole 2022-0 Yes [id number] 20mg Take 1 [facility] 20 mg 9-23 tablet by ity of tablet 00:00: mouth in [place] 00 the Medical morning. Branch metFORMIN 2-0 Yes [id number] 1000mg Take 1 [facility] 1,000 mg 9-23 tablet by ity of tablet 00:00: mouth in [place] 00 the Medical morning Branch and 1 tablet in the evening. Take with meals. Omeprazole 2-0 Yes [id number] 20mg Take 1 [facility] 20 mg 9-23 tablet by ity of tablet 00:00: mouth in [place] 00 the Medical morning. Branch metFORMIN 2-0 2022- No [id number] 1000mg Take 1 [facility] 1,000 mg 9-23 12-12 tablet by ity o f tablet 00:00: 00:00 mouth in [place] 00 :00 the Medical morning Branch and 1 tablet in the evening. Take with meals. Omeprazole 2-0 2022- No [id number] 20mg Take 1 [facility] 20 mg 9-23 12-12 tablet by ity of tablet 00:00: 00:00 mouth in [place] 00 :00 the Medical morning. Branch metFORMIN 2022-0 2022- No [id number] 1000mg Take 1 [facility] 1,000 mg 9-23 12-12 tablet by ity o f tablet 00:00: 00:00 mouth in [place] 00 :00 the Medical morning Branch and 1 tablet in the evening. Take with meals. Omeprazole 2022-0 2022- No [id number] 20mg Take 1 [facility] 20 mg 9-23 12-12 tablet by ity of tablet 00:00: 00:00 mouth in [place] 00 :00 the Medical morning. Branch apixaban 2-0 Yes [id number] 5mg Take 1 [facility] (ELIQUIS) 5 9-07 tablet by ity of mg tablet 00:00: mouth in [facility] 00 the Medical morning Branch and 1 [...] 10:02: 00:00 [place] tablet 41 :00 Medical [place] montelukast Yes [id number] 10mg Take 1 [facility] (SINGULAIR) 8-25 tablet by ity of 10 mg 00:00: mouth in [place] tablet 00 the Medical morning. Branch montelukast 0 Yes [id number] 10mg Take 1 [facility] (SINGULAIR) 8-25 tablet by ity of 10 mg 00:00: mouth in [place] tablet 00 the Medical morning. Branch montelukast 0 Yes [id number] 10mg Take 1 [facility] (SINGULAIR) 8-25 tablet by ity of 10 mg 00:00: mouth in [place] tablet 00 the Medical morning. Branch montelukast Yes [id number] 10mg Take 1 [facility] (SINGULAIR) 8-25 tablet by ity of 10 mg 00:00: mouth in [place] tablet 00 the Medical morning. Branch montelukast Yes [id number] 10mg Take 1 [facility] (SINGULAIR) 8-25 tablet by ity of 10 mg 00:00: mouth in [place] tablet 00 the Medical morning. Branch montelukast 0 Yes [id number] 10mg Take 1 [facility] (SINGULAIR) 8-25 tablet by ity of 10 mg 00:00: mouth in [place] tablet 00 the Medical morning. [place] montelukast Yes [id number] 10mg Take 1 [facility] (SINGULAIR) 8-25 tablet by ity of 10 mg 00:00: mouth in [place] tablet 00 the Medical morning. [place] montelust Yes [id number] 10mg Take 1 [facility] (SINGULAIR) 8-25 tablet by ity of 10 mg 00:00: mouth in [place] tablet 00 the Medical morning. Branch montelukast 0 Yes [id number] 10mg Take 1 [facility] (SINGULAIR) 8-25 tablet by ity of 10 mg 00:00: mouth in [place] tablet 00 the Medical morning. Branch montelukast 2021-0 Yes [id number] 10mg Take 1 [facility] (SINGULAIR) 8-25 tablet by ity of 10 mg 00:00: mouth in [place] tablet 00 the Medical morning. Branch montelukast 0 Yes [id number] 10mg Take 1 [facility] (SINGULAIR) 8-25 tablet by ity of 10 mg 00:00: mouth in [place] tablet 00 the Medical morning. Branch montelukast 0 Yes [id number] 10mg Take 1 [facility] (SINGULAIR) 8-25 tablet by ity of 10 mg 00:00: mouth in [place] tablet 00 the Medical morning. Branch montelukast 0 Yes [id number] 10mg Take 1 [facility] (SINGULAIR) 8-25 tablet by ity of 10 mg 00:00: mouth in [place] tablet 00 the Medical morning. [place] montelukast Yes [id number] 10mg Take 1 [facility] (SINGULAIR) 8-25 tablet by [facility] of 10 mg 00:00: mouth in [place] tablet 00 the Medical morning. [place] montelukast Yes [id number] 10mg Take 1 [facility] (SINGULAIR) 8-25 tablet by [facility] of 10 mg 00:00: mouth in [place] tablet 00 the Medical morning. [place] montelukast Yes [id number] 10mg Take 1 [facility] (SINGULAIR) 8-25 tablet by [facility] of 10 mg 00:00: mouth in [place] tablet 00 the Medical morning. [place] montelukast 0 Yes [id number] 10mg Take 1 [facility] (SINGULAIR) 8-25 tablet by [facility] of 10 mg 00:00: mouth in [place] tablet 00 the Medical morning. [place] montelukast 0 Yes [id number] 10mg Take 1 [facility] (SINGULAIR) 8-25 tablet by [facility] of 10 mg 00:00: mouth in [place] tablet 00 the Medical morning. [place] montelukast 0 Yes [id number] 10mg Take 1 [facility] (SINGULAIR) 8-25 tablet by ity of 10 mg 00:00: mouth in [place] tablet 00 the Medical morning. [place] montelukast 0 Yes [id number] 10mg Take 1 [facility] (SINGULAIR) 8-25 tablet by [facility]y of 10 mg 00:00: mouth in [place] tablet 00 the Medical morning. [place] montelukast 0 Yes [id number] 10mg Take 1 [facility] (SINGULAIR) 8-25 tablet by [facility] of 10 mg 00:00: mouth in [place] tablet 00 the Medical morning. [facility] montelukast 0 Yes [id number] 10mg Take 1 [facility] (SINGULAIR) 8-25 tablet by [facility] of 10 mg 00:00: mouth in [place] tablet 00 the Medical morning. [facility] montelukast 0 Yes [id number] 10mg Take 1 [facility] (SINGULAIR) 8-25 tablet by [facility] of 10 mg 00:00: mouth in [place] tablet 00 the Medical morning. [facility] montelukast 0 Yes [id number] 10mg Take 1 [facility] (SINGULAIR) 8-25 tablet by ity of 10 mg 00:00: mouth in [place] tablet 00 the Medical morning. [facility] montelukast 0 Yes [id number] 10mg Take 1 [facility] (SINGULAIR) 8-25 tablet by [facility]y of 10 mg 00:00: mouth in [place] tablet 00 the Medical morning. [facility] montelukast 0 Yes [id number] 10mg Take 1 [facility] (SINGULAIR) 8-25 tablet by [facility] of 10 mg 00:00: mouth in [place] tablet 00 the Medical morning. [place] montelukast 0 Yes [id number] 10mg Take 1 [facility] (SINGULAIR) 8-25 tablet by [facility] of 10 mg 00:00: mouth in [place] tablet 00 the Medical morning. [facility] montelukast 0 Yes [id number] 10mg Take 1 [facility] (SINGULAIR) 8-25 tablet by ity of 10 mg 00:00: mouth in [place] tablet 00 the Medical morning. [facility] montelukast 0 Yes [id number] 10mg Take 1 [facility] (SINGULAIR) 8-25 tablet by [facility] of 10 mg 00:00: mouth in [place] tablet 00 the Medical morning. [facility] montelukast 0 Yes [id number] 10mg Take 1 [facility] (SINGULAIR) 8-25 tablet by [facility] of 10 mg 00:00: mouth in [place] tablet 00 the Medical morning. [facility] montelukast 0 Yes [id number] 10mg Take 1 [facility] (SINGULAIR) 8-25 tablet by [facility] of 10 mg 00:00: mouth in [place] tablet 00 the Medical morning. [facility] antoninalukast 2022- No [id number] 10mg Take 1 [facility] (SINGULAIR) 8-25 02-14 [...] evening. Indication s: atrial fibrillati on metFORMIN Yes [id number] 1000mg Take 1 [facility] 1,000 mg 8-02 tablet by ity of tablet 00:00: mouth in [address] morning [place] and 1 tablet in the evening. Take with meals. metFORMIN 2022-0 Yes [id number] 1000mg Take 1 [facility] 1,000 mg 8-02 tablet by ity of tablet 00:00: mouth in [address] and 1 tablet in the evening. Take with meals. metFORMIN 2022-0 Yes [id number] 1000mg Take 1 [facility] 1,000 mg 8-02 tablet by ity of tablet 00:00: mouth in [address] and 1 tablet in the evening. Take with meals. metFORMIN 2022-0 Yes [id number] 1000mg Take 1 [facility] 1,000 mg 8-02 tablet by ity of tablet 00:00: mouth in [address] and 1 tablet in the evening. Take with meals. metFORMIN 2022-0 Yes [id number] 1000mg Take 1 [facility] 1,000 mg 8-02 tablet by ity of tablet 00:00: mouth in [address] and 1 tablet in the evening. Take with meals. metFORMIN 2022-0 Yes [id number] 1000mg Take 1 [facility] 1,000 mg 8-02 tablet by ity of tablet 00:00: mouth in [address] and 1 tablet in the evening. Take with meals. metFORMIN 2022-0 Yes [id number] 1000mg Take 1 [facility] 1,000 mg 8-02 tablet by ity of tablet 00:00: mouth in [address] and 1 tablet in the evening. Take with meals. metFORMIN 2022-0 Yes [id number] 1000mg Take 1 [facility] 1,000 mg 8-02 tablet by ity of tablet 00:00: mouth in [address] and 1 tablet in the evening. Take with meals. metFORMIN 2022-0 Yes [id number] 1000mg Take 1 [facility] 1,000 mg 8-02 tablet by ity of tablet 00:00: mouth in [address] and 1 tablet in the evening. Take with meals. metFORMIN 2022-0 Yes [id number] 1000mg Take 1 [facility] 1,000 mg 8-02 tablet by ity of tablet 00:00: mouth in [address] and 1 tablet in the evening. Take with meals. metFORMIN 2022-0 2022- No [id number] 1000mg Take 1 [facility] 1,000 mg 12-12 tablet by ity o f tablet 00:00: 00:00 mouth in [place] 00 :00 the Medical morning Branch and 1 tablet in the evening. Take with meals. metFORMIN 2021- No [id number] 1000mg Take 1 [facility] 1,000 mg 12-12 tablet by ity o f tablet 00:00: 00:00 mouth in [place] 00 :00 the Medical morning [facility] and 1 tablet in the evening. Take with meals. apixaban Yes 1358 5mg Take 1 [facility] (ELIQUIS) 5 7-21 tablet by [facility] mg tablet 00:00[facility] and 1 tablet in the evening. Indication s: atrial fibrillati on apixaban Yes 1358 5mg Take 1 [facility] (ELIQUIS) 5 7-21 tablet by [facility] of mg tablet 00:00: [facility] and 1 tablet in the evening. Indication s: atrial fibrillati on apixaban 2021- No 1358 5mg Take 1 [facility] (ELIQUIS) 5 7-21 08- tablet by it y of mg tablet 00:00: 00:00 mouth in [place] 00 :00 the Medical morning Branch and 1 tablet in the evening. Indication s: atrial fibrillati on chlorphenir Yes [id number] 4mg Take 1 [facility] amine 4 mg 6-29 tablet by ity of tablet 00:00: mouth [place] 00 every 6 Medical (six) Branch hours as needed for Allergies or Runny nose. calcium/mag Yes [id number] 1{each} Take 1 [facility] nesium/zinc 6-29 Each by ity o f (CALCIUM-MA 00:00: mouth [place] GNESUIUM-ZI 00 daily. Medica l HI) Branch 333-133-5 mg Tab benzonatate Yes [id number] 100mg Take 1 [facility] 100 mg 6-29 capsule by ity of capsule 00:00: mouth 3 [place] 00 (three) Medical times Branch daily as needed for Cough. nirmatrelvi Yes [id number] 3{tbl} Take 3 [facility] r-ritonavir 6-29 tablets by it y of (PAXLOVID, 00:00: mouth [place] EUA,) 150 00 (two) Medical mg x 2- 100 times Branch mg tablet daily. chlorphenir 2022-0 Yes [id number] 4mg Take 1 [facility] amine 4 mg 6-29 tablet by ity of tablet 00:00: mouth [place] 00 every 6 Medical (six) Branch hours as needed for Allergies or Runny nose. calcium/mag 2021-0 Yes [id number] 1{each} Take 1 [facility] nesium/zinc 6-29 Each by ity o f (CALCIUM-MA 00:00: mouth [place] GNESUIUM-ZI 00 daily. Medica l NC) Branch 333-133-5 mg Tab benzonatate 2022-0 Yes [id number] 100mg Take 1 [facility] 100 mg 6-29 capsule by ity of capsule 00:00: mouth 3 [place] 00 (three) Medical times Branch daily as needed for Cough. nirmatrelvi 2021-0 Yes [id number] 3{tbl} Take 3 [facility] r-ritonavir 6-29 tablets by it y of (PAXLOVID, 00:00: mouth [place] EUA,) 150 00 (two) Medical mg x 2- 100 times Branch mg tablet daily. chlorphenir 2021-0 Yes [id number] 4mg Take 1 [facility] amine 4 mg 6-29 tablet by ity of tablet 00:00: mouth [place] 00 every 6 Medical (six) Branch hours as needed for Allergies or Runny nose. calcium/mag 2021-0 Yes [id number] 1{each} Take 1 [facility] nesium/zinc 6-29 Each by ity o f (CALCIUM-MA 00:00: mouth [place] GNESUIUM-ZI 00 daily. Medica l NC) Branch 333-133-5 mg Tab benzonatate 2022-0 Yes [id number] 100mg Take 1 [facility] 100 mg 6-29 capsule by ity of capsule 00:00: mouth 3 [place] 00 (three) Medical times Branch daily as needed for Cough. nirmatrelvi 2021-0 Yes [id number] 3{tbl} Take 3 [facility] r-ritonavir 6-29 tablets by it y of (PAXLOVID, 00:00: mouth [place] EUA,) 150 00 (two) Medical mg x 2- 100 times Branch mg tablet daily. chlorphenir 2022-0 Yes [id number] 4mg Take 1 [facility] amine 4 mg 6-29 tablet by ity of tablet 00:00: mouth [place] 00 every 6 Medical (six) Branch hours as needed for Allergies or Runny nose. calcium/mag 2022-0 Yes [id number] 1{each} Take 1 [facility] nesium/zinc 6-29 Each by ity o f (CALCIUM-MA 00:00: mouth [place] GNESUIUM-ZI 00 daily. Medica l NC) Branch 333-133-5 mg Tab benzonatate 2022-0 Yes [id number] 100mg Take 1 [facility] 100 mg 6-29 capsule by ity of capsule 00:00: mouth 3 [place] 00 (three) Medical times Branch daily as needed for Cough. nirmatrelvi 2021-0 Yes [id number] 3{tbl} Take 3 [facility] r-ritonavir 6-29 tablets by it y of (PAXLOVID, 00:00: mouth [place] EUA,) 150 00 (two) Medical mg x 2- 100 times Branch mg tablet daily. chlorphenir 2022-0 Yes [id number] 4mg Take 1 [facility] amine 4 mg 6-29 tablet by ity of tablet 00:00: mouth [place] 00 every 6 Medical (six) Branch hours as needed for Allergies or Runny nose. calcium/mag 2-0 Yes [id number] 1{each} Take 1 [facility] nesium/zinc 6-29 Each by ity o f (CALCIUM-MA 00:00: mouth [place] GNESUIUM-ZI 00 daily. Medica l HI) Branch 333-133-5 mg Tab benzonatate 2022-0 Yes [id number] 100mg Take 1 [facility] 100 mg 6-29 capsule by ity of capsule 00:00: mouth 3 [place] 00 (three) Medical times Branch daily as needed for Cough. nirmatrelvi 2022-0 Yes [id number] 3{tbl} Take 3 [facility] r-ritonavir 6-29 tablets by it y of (PAXLOVID, 00:00: mouth 2 [place] EUA,) 150 00 (two) Medical mg x 2- 100 times Branch mg tablet daily. chlorphenir 2022-0 Yes [id number] 4mg Take 1 [facility] amine 4 mg 6-29 tablet by ity of tablet 00:00: mouth [place] 00 every 6 Medical (six) Branch hours as needed for Allergies or Runny nose. calcium/mag 2021-0 Yes [id number] 1{each} Take 1 [facility] nesium/zinc 6-29 Each by ity o f (CALCIUM-MA 00:00: mouth [place] GNESUIUM-ZI 00 daily. Medica l HI) Branch 333-133-5 mg Tab benzonatate 2021-0 Yes [id number] 100mg Take 1 [facility] 100 mg 6-29 capsule by ity of capsule 00:00: mouth 3 [place] 00 (three) Medical times Branch daily as needed for Cough. nirmatrelvi 2021-0 Yes [id number] 3{tbl} Take 3 [facility] r-ritonavir 6-29 tablets by it y of (PAXLOVID, 00:00: mouth 2 [place] EUA,) 150 00 (two) Medical mg x 2- 100 times Branch mg tablet daily. chlorphenir 2021-0 Yes [id number] 4mg Take 1 [facility] amine 4 mg 6-29 tablet by ity of tablet 00:00: mouth [place] 00 every 6 Medical (six) Branch hours as needed for Allergies or Runny nose. calcium/mag 2021-0 Yes [id number] 1{each} Take 1 [facility] nesium/zinc 6-29 Each by ity o f (CALCIUM-MA 00:00: mouth [place] GNESUIUM-ZI 00 daily. Medica l HI) Branch 333-133-5 mg Tab benzonatate 2021-0 Yes [id number] 100mg Take 1 [facility] 100 mg 6-29 capsule by ity of capsule 00:00: mouth 3 [place] 00 (three) Medical times Branch daily as needed for Cough. nirmatrelvi 2021-0 Yes [id number] 3{tbl} Take 3 [facility] r-ritonavir 6-29 tablets by it y of (PAXLOVID, 00:00: mouth 2 [place] EUA,) 150 00 (two) Medical mg x 2- 100 times Branch mg tablet daily. chlorphenir 2021-0 Yes [id number] 4mg Take 1 [facility] amine 4 mg 6-29 tablet by ity of tablet 00:00: mouth [place] 00 every 6 Medical (six) Branch hours as needed for Allergies or Runny nose. calcium/mag 2021-0 Yes [id number] 1{each} Take 1 [facility] nesium/zinc 6-29 Each by ity o f (CALCIUM-MA 00:00: mouth [place] GNESUIUM-ZI 00 daily. Medica l HI) Branch 333-133-5 mg Tab benzonatate 2021-0 Yes [id number] 100mg Take 1 [facility] 100 mg 6-29 capsule by ity of capsule 00:00: mouth 3 [place] 00 (three) Medical times Branch daily as needed for Cough. nirmatrelvi 2021-0 Yes [id number] 3{tbl} Take 3 [facility] r-ritonavir 6-29 tablets by it y of (PAXLOVID, 00:00: mouth 2 [place] EUA,) 150 00 (two) Medical mg x 2- 100 times Branch mg tablet daily. chlorphenir 2021-0 Yes [id number] 4mg Take 1 [facility] amine 4 mg 6-29 tablet by ity of tablet 00:00: mouth [place] 00 every 6 Medical (six) Branch hours as needed for Allergies or Runny nose. calcium/mag 2021-0 Yes [id number] 1{each} Take 1 [facility] nesium/zinc 6-29 Each by ity o f (CALCIUM-MA 00:00: mouth [place] GNESUIUM-ZI 00 daily. Medica l HI) Branch 333-133-5 mg Tab benzonatate 2021-0 Yes [id number] 100mg Take 1 [facility] 100 mg 6-29 capsule by ity of capsule 00:00: mouth 3 [place] 00 (three) Medical times Branch daily as needed for Cough. nirmatrelvi 2021-0 Yes [id number] 3{tbl} Take 3 [facility] r-ritonavir 6-29 tablets by it y of (PAXLOVID, 00:00: mouth 2 [place] EUA,) 150 00 (two) Medical mg x 2- 100 times Branch mg tablet daily. chlorphenir 2022-0 Yes [id number] 4mg Take 1 [facility] amine 4 mg 6-29 tablet by ity of tablet 00:00: mouth [place] 00 every 6 Medical (six) Branch hours as needed for Allergies or Runny nose. calcium/mag 2021-0 Yes [id number] 1{each} Take 1 [facility] nesium/zinc 6-29 Each by ity o f (CALCIUM-MA 00:00: mouth [place] GNESUIUM-ZI 00 daily. Medica l NC) Branch 333-133-5 mg Tab benzonatate 2021- Yes [id number] 100mg Take 1 [facility] 100 mg 6-29 capsule by ity of capsule 00:00: mouth 3 [place] 00 (three) Medical times Branch daily as needed for Cough. nirmatrelvi Yes [id number] 3{tbl} Take 3 [facility] r-ritonavir 6-29 tablets by it y of (PAXLOVID, 00:00: mouth 2 [place] EUA,) 150 00 (two) Medical mg x 2- 100 times Branch mg tablet daily. chlorphenir 2021- No [id number] 4mg Take 1 [facility] amine 4 mg 6-29 09-23 tablet by ity of tablet 00:00: 00:00 mouth [place] 00 :00 every 6 Medical (six) Branch hours as needed for Allergies or Runny nose. calcium/mag 2021- No [id number] 1{each} Take 1 [facility] nesium/zinc 6-29 09-23 Each by ity of (CALCIUM-MA 00:00: 00:00 mouth [place] GNESUIUM-ZI 00 :00 daily. Medica l HI) Branch 333-133-5 mg Tab benzonatate 2021- No [id number] 100mg Take 1 [facility] 100 mg 6-29 09-23 capsule by ity of capsule 00:00: 00:00 mouth 3 [place] 00 :00 (three) Medical times Branch daily as needed for Cough. nirmatrelvi 2021- No [id number] 3{tbl} Take 3 [facility] r-ritonavir 6-29 09-23 tablets by i ty of (PAXLOVID, 00:00: 00:00 mouth 2 [place] EUA,) 150 00 :00 (two) Medical mg x 2- 100 times Branch mg tablet daily. chlorphenir 2021-2021- No [id number] 4mg Take 1 [facility] amine 4 mg 6-29 09-23 tablet by ity of tablet 00:00: 00:00 mouth [place] 00 :00 every 6 Medical (six) Branch hours as needed for Allergies or Runny nose. calcium/mag 2021- No [id number] 1{each} Take 1 [facility] nesium/zinc 11-08 Each by ity of (CALCIUM-MA 00:00: 00:00 mouth [place] GNESUIUM-ZI 00 :00 daily. Medica l NC) Branch 333-133-5 mg Tab benzonatate 2021- No [id number] 100mg Take 1 [facility] 100 mg 11-08 capsule by ity of capsule 00:00: 00:00 mouth 3 [place] 00 :00 (three) Medical times Branch daily as needed for Cough. nirmatrelvi 2021- No [id number] 3{tbl} Take 3 [facility] r-ritonavir 11-08 tablets by i ty of (PAXLOVID, 00:00: 00:00 mouth 2 [place] EUA,) 150 00 :00 (two) Medical mg x 2- 100 times Branch mg tablet daily. vitamin 2021- No [id number] 1{tbl} Take 1 [facility] D3-folic 11-08 07-30 tablet by ity o f acid 125 00:00: 04:59 mouth [place] mcg (5,000 00 :00 daily for Medi lula unit)-1 mg 30 days. Branc h Tab mupirocin 2 Yes [id number] Apply to [facility] % ointment 6-15 area(s) 3 ity of 00:00: (three) [place] 00 times Medical daily. Branch mupirocin 2 Yes [id number] Apply to [facility] % ointment 6-15 area(s) 3 ity of 00:00: (three) [place] 00 times Medical daily. Branch mupirocin 2 Yes [id number] Apply to [facility] % ointment 6-15 area(s) 3 ity of 00:00: (three) [place] 00 times Medical daily. Branch mupirocin 2 Yes [id number] Apply to [facility] % ointment 6-15 area(s) 3 ity of 00:00: (three) [place] 00 times Medical daily. Branch mupirocin 2 2022-0 Yes [id number] Apply to [facility] % ointment 6-15 area(s) 3 ity of 00:00: (three) [place] 00 times Medical daily. Branch mupirocin 2 2-0 Yes [id number] Apply to [facility] % ointment 6-15 area(s) 3 ity of 00:00: (three) [place] 00 times Medical daily. Branch mupirocin 2 2021-0 Yes [id number] Apply to [facility] % ointment 6-15 area(s) 3 ity of 00:00: (three) [place] 00 times Medical daily. Branch mupirocin 2 2021-0 Yes [id number] Apply to [facility] % ointment 6-15 area(s) 3 ity of 00:00: (three) [place] 00 times Medical daily. Branch mupirocin 2 2021-0 Yes [id number] Apply to [facility] % ointment 6-15 area(s) 3 ity of 00:00: (three) [place] 00 times Medical daily. Branch mupirocin 2 2021-0 Yes [id number] Apply to [facility] % ointment 6-15 area(s) 3 ity of 00:00: (three) [place] 00 times Medical daily. Branch mupirocin 2 2021-0 Yes [id number] Apply to [facility] % ointment 6-15 area(s) 3 ity of 00:00: (three) [place] 00 times Medical daily. Branch mupirocin 2 2021-0 Yes [id number] Apply to [facility] % ointment 6-15 area(s) 3 ity of 00:00: (three) [place] 00 times Medical daily. Branch mupirocin 2 2021-0 Yes [id number] Apply to [facility] % ointment 6-15 area(s) 3 ity of 00:00: (three) [place] 00 times Medical daily. Branch mupirocin 2 2-0 Yes [id number] Apply to [facility] % ointment 6-15 area(s) 3 ity of 00:00: (three) [place] 00 times Medical daily. Branch mupirocin 2 2-0 Yes [id number] Apply to [facility] % ointment 6-15 area(s) 3 ity of 00:00: (three) [place] 00 times Medical daily. Branch mupirocin 2 2-0 Yes [id number] Apply to [facility] % ointment 6-15 area(s) 3 ity of 00:00: (three) [place] 00 times Medical daily. Branch mupirocin 2 2-0 Yes [id number] Apply to [facility] % ointment 6-15 area(s) 3 ity of 00:00: (three) [place] 00 times Medical daily. Branch mupirocin 2 2-0 Yes [id number] Apply to [facility] % ointment 6-15 area(s) 3 ity of 00:00: (three) [place] 00 times Medical daily. Branch mupirocin 2 2-0 Yes [id number] Apply to [facility] % ointment 6-15 area(s) 3 ity of 00:00: (three) [place] 00 times Medical daily. Branch mupirocin 2 2021-0 Yes [id number] Apply to [facility] % ointment 6-15 area(s) 3 ity of 00:00: (three) [place] 00 times Medical daily. Branch mupirocin 2 2021-0 Yes [id number] Apply to [facility] % ointment 6-15 area(s) 3 ity of 00:00: (three) [place] 00 times Medical daily. Branch mupirocin 2 2021-0 Yes [id number] Apply to [facility] % ointment 6-15 area(s) 3 ity of 00:00: (three) [place] 00 times Medical daily. Branch mupirocin 2 2021-0 Yes [id number] Apply to [facility] % ointment 6-15 area(s) 3 ity of 00:00: (three) [place] 00 times Medical daily. Branch mupirocin 2 2-0 Yes [id number] Apply to [facility] % ointment 6-15 area(s) 3 ity of 00:00: (three) [place] 00 times Medical daily. Branch mupirocin 2 2-0 Yes [id number] Apply to [facility] % ointment 6-15 area(s) 3 ity of 00:00: (three) [place] 00 times Medical daily. Branch mupirocin 2 2-0 Yes [id number] Apply to [facility] % ointment 6-15 area(s) 3 ity of 00:00: (three) [place] 00 times Medical daily. Branch mupirocin 2 2-0 Yes [id number] Apply to [facility] % ointment 6-15 area(s) 3 ity of 00:00: (three) [place] 00 times Medical daily. Branch mupirocin 2 2-0 Yes [id number] Apply to [facility] % ointment 6-15 area(s) 3 ity of 00:00: (three) [place] 00 times Medical daily. Branch mupirocin 2 2-0 Yes [id number] Apply to [facility] % ointment 6-15 area(s) 3 ity of 00:00: (three) [place] 00 times Medical daily. Branch mupirocin 2 2-0 Yes [id number] Apply to [facility] % ointment 6-15 area(s) 3 ity of 00:00: (three) [place] 00 times Medical daily. Branch mupirocin 2 2021-0 Yes [id number] Apply to [facility] % ointment 6-15 area(s) 3 ity of 00:00: (three) [place] 00 times Medical daily. Branch mupirocin 2 2021-0 Yes [id number] Apply to [facility] % ointment 6-15 area(s) 3 ity of 00:00: (three) [place] 00 times Medical daily. Branch mupirocin 2 2-0 Yes [id number] Apply to [facility] % ointment 6-15 area(s) 3 ity of 00:00: (three) [place] 00 times Medical daily. Branch mupirocin 2 2-0 Yes [id number] Apply to [facility] % ointment 6-15 area(s) 3 ity of 00:00: (three) [place] 00 times Medical daily. Branch mupirocin 2 2-0 Yes [id number] Apply to [facility] % ointment 6-15 area(s) 3 ity of 00:00: (three) [place] 00 times Medical daily. Branch mupirocin 2 2-0 Yes [id number] Apply to [facility] % ointment 6-15 area(s) 3 ity of 00:00: (three) [place] 00 times Medical daily. Branch mupirocin 2 2-0 Yes [id number] Apply to [facility] % ointment 6-15 area(s) 3 ity of 00:00: (three) [place] 00 times Medical daily. Branch mupirocin 2 2022-0 Yes [id number] Apply to [facility] % ointment 6-15 area(s) 3 ity of 00:00: (three) [place] 00 times Medical daily. Branch mupirocin 2 2-0 Yes [id number] Apply to [facility] % ointment 6-15 area(s) 3 ity of 00:00: (three) [place] 00 times Medical daily. Branch mupirocin 2 2-0 Yes [id number] Apply to [facility] % ointment 6-15 area(s) 3 ity of 00:00: (three) [place] 00 times Medical daily. Branch mupirocin 2 2-0 Yes [id number] Apply to [facility] % ointment 6-15 area(s) 3 ity of 00:00: (three) [place] 00 times Medical daily. Branch mupirocin 2 2-0 Yes [id number] Apply to [facility] % ointment 6-15 area(s) 3 ity of 00:00: (three) [place] 00 times Medical daily. Branch mupirocin 2 2-0 Yes [id number] Apply to [facility] % ointment 6-15 area(s) 3 ity of 00:00: (three) [place] 00 times Medical daily. Branch mupirocin 2 2-0 Yes [id number] Apply to [facility] % ointment 6-15 area(s) 3 ity of 00:00: (three) [place] 00 times Medical daily. Branch mupirocin 2 2-0 Yes [id number] Apply to [facility] % ointment 6-15 area(s) 3 ity of 00:00: (three) [place] 00 times Medical daily. Branch mupirocin 2 2-0 Yes [id number] Apply to [facility] % ointment 6-15 area(s) 3 ity of 00:00: (three) [place] 00 times Medical daily. Branch mupirocin 2 2022-0 Yes [id number] Apply to [facility] % ointment 6-15 area(s) 3 ity of 00:00: (three) [place] 00 times Medical daily. Branch mupirocin 2 2-0 Yes [id number] Apply to [facility] % ointment 6-15 area(s) 3 ity of 00:00: (three) [place] 00 times Medical daily. Branch mupirocin 2 2022-0 Yes [id number] Apply to [facility] % ointment 6-15 area(s) 3 ity of 00:00: (three) [place] 00 times Medical daily. Branch mupirocin 2 2-0 Yes [id number] Apply to [facility] % ointment 6-15 area(s) 3 ity of 00:00: (three) [place] 00 times Medical daily. Branch mupirocin 2 2022-0 Yes [id number] Apply to [facility] % ointment 6-15 area(s) 3 ity of 00:00: (three) [place] 00 times Medical daily. Branch mupirocin 2 2022-0 Yes [id number] Apply to [facility] % ointment 6-15 area(s) 3 ity of 00:00: (three) [place] 00 times Medical daily. Branch mupirocin 2 2022-0 Yes [id number] Apply to [facility] % ointment 6-15 area(s) 3 ity of 00:00: (three) [place] 00 times Medical daily. Branch mupirocin 2 2-0 Yes [id number] Apply to [facility] % ointment 6-15 area(s) 3 ity of 00:00: (three) [place] 00 times Medical daily. Branch mupirocin 2 2-0 Yes [id number] Apply to [facility] % ointment 6-15 area(s) 3 ity of 00:00: (three) [place] 00 times Medical daily. Branch mupirocin 2 2022-0 Yes [id number] Apply to [facility] % ointment 6-15 area(s) 3 ity of 00:00: (three) [place] 00 times Medical daily. Branch mupirocin 2 2022-0 Yes [id number] Apply to [facility] % ointment 6-15 area(s) 3 ity of 00:00: (three) [place] 00 times Medical daily. Branch mupirocin 2 2022-0 Yes [id number] Apply to [facility] % ointment 6-15 area(s) 3 ity of 00:00: (three) [place] 00 times Medical daily. Branch mupirocin 2 2022-0 Yes [id number] Apply to [facility] % ointment 6-15 area(s) 3 ity of 00:00: (three) [place] 00 times Medical daily. Branch mupirocin 2 2021-0 Yes [id number] Apply to [facility] % ointment 6-15 area(s) 3 ity of 00:00: (three) [place] 00 times Medical daily. Branch mupirocin 2 2021-0 Yes [id number] Apply to [facility] % ointment 6-15 area(s) 3 ity of 00:00: (three) [place] 00 times Medical daily. Branch mupirocin 2 2021-0 Yes [id number] Apply to [facility] % ointment 6-15 area(s) 3 ity of 00:00: (three) [place] 00 times Medical daily. Branch isosorbide 2021-0 Yes [id number] 60mg Take 1 [facility] nivers mononitrate 5-05 tablet by ity of 60 mg 24 hr 00:00: mouth [place] tablet 00 daily. Medical Branch isosorbide 2021-0 Yes [id number] 60mg Take 1 U nivers mononitrate 5-05 tablet by ity of 60 mg 24 hr 00:00: mouth [place] tablet 00 daily. Medical Branch isosorbide 2021-0 Yes [id number] 60mg Take 1 U nivers mononitrate 5-05 tablet by ity of 60 mg 24 hr 00:00: mouth [place] tablet 00 daily. Medical Branch isosorbide 2021-0 Yes [id number] 60mg Take 1 U nivers mononitrate 5-05 tablet by ity of 60 mg 24 hr 00:00: mouth [place] tablet 00 daily. Medical Branch isosorbide 2021-0 Yes [id number] 60mg Take 1 U nivers mononitrate 5-05 tablet by ity of 60 mg 24 hr 00:00: mouth [place] tablet 00 daily. Medical Branch isosorbide 2021-0 Yes [id number] 60mg Take 1 U nivers mononitrate 5-05 tablet by ity of 60 mg 24 hr 00:00: mouth [place] tablet 00 daily. Medical Branch isosorbide 2-0 Yes [id number] 60mg Take 1 U nivers mononitrate 5-05 tablet by ity of 60 mg 24 hr 00:00: mouth [place] tablet 00 daily. Medical Branch isosorbide 2-0 Yes [id number] 60mg Take 1 U nivers mononitrate 5-05 tablet by ity of 60 mg 24 hr 00:00: mouth [place] tablet 00 daily. [facility] isosorbide 2-0 Yes [id number] 60mg Take 1 [facility] mononitrate 5-05 tablet by ity of 60 mg 24 hr 00:00: mouth [place] tablet 00 daily. [facility] isosorbide 2-0 Yes [id number] 60mg Take 1 [facility] mononitrate 5-05 tablet by ity of 60 mg 24 hr 00:00: mouth [place] tablet 00 daily. [facility] isosorbide 2-0 Yes [id number] 60mg Take 1 [facility] mononitrate 5-05 tablet by ity of 60 mg 24 hr 00:00: mouth [place] tablet 00 daily. [facility] isosorbide 2021-0 Yes [id number] 60mg Take 1 [facility] mononitrate 5-05 tablet by ity of 60 mg 24 hr 00:00: mouth [place] tablet 00 daily. [facility] isosorbide 2021-0 Yes [id number] 60mg Take 1 [facility] mononitrate 5-05 tablet by ity of 60 mg 24 hr 00:00: mouth [place] tablet 00 daily. [facility] isosorbide 2021-0 Yes [id number] 60mg Take 1 [facility] mononitrate 5-05 tablet by ity of 60 mg 24 hr 00:00: mouth [place] tablet 00 daily. [facility] isosorbide 2021-0 Yes [id number] 60mg Take 1 [facility] mononitrate 5-05 tablet by ity of 60 mg 24 hr 00:00: mouth [place] tablet 00 daily. [facility] isosorbide 2-0 Yes [id number] 60mg Take 1 [facility] mononitrate 5-05 tablet by ity of 60 mg 24 hr 00:00: mouth [place] tablet 00 daily. [facility] isosorbide 2-0 Yes [id number] 60mg Take 1 [facility] mononitrate 5-05 tablet by ity of 60 mg 24 hr 00:00: mouth [place] tablet 00 daily. [facility] isosorbide 2-0 Yes [id number] 60mg Take 1 [facility] mononitrate 5-05 tablet by ity of 60 mg 24 hr 00:00: mouth [place] tablet 00 daily. [facility] isosorbide 2-0 Yes [id number] 60mg Take 1 [facility] mononitrate 5-05 tablet by ity of 60 mg 24 hr 00:00: mouth [place] tablet 00 daily. [facility] isosorbide 2-0 Yes [id number] 60mg Take 1 [facility] mononitrate 5-05 tablet by ity of 60 mg 24 hr 00:00: mouth [place] tablet 00 daily. [facility] isosorbide 2-0 Yes [id number] 60mg Take 1 [facility] mononitrate 5-05 tablet by ity of 60 mg 24 hr 00:00: mouth [place] tablet 00 daily. [facility] isosorbide 2021-0 Yes [id number] 60mg Take 1 [facility] mononitrate 5-05 tablet by ity of 60 mg 24 hr 00:00: mouth [place] tablet 00 daily. [facility] isosorbide 2021-0 Yes [id number] 60mg Take 1 [facility] mononitrate 5-05 tablet by ity of 60 mg 24 hr 00:00: mouth [place] tablet 00 daily. [facility] isosorbide 2021-0 Yes [id number] 60mg Take 1 [facility] mononitrate 5-05 tablet by ity of 60 mg 24 hr 00:00: mouth [place] tablet 00 daily. [facility] isosorbide 2021-0 Yes [id number] 60mg Take 1 [facility] mononitrate 5-05 tablet by ity of 60 mg 24 hr 00:00: mouth [place] tablet 00 daily. [facility] isosorbide 2021-0 Yes [id number] 60mg Take 1 [facility] mononitrate 5-05 tablet by ity of 60 mg 24 hr 00:00: mouth [place] tablet 00 daily. [facility] isosorbide 2-0 Yes [id number] 60mg Take 1 [facility] mononitrate 5-05 tablet by ity of 60 mg 24 hr 00:00: mouth [place] tablet 00 daily. [facility] isosorbide 2-0 Yes [id number] 60mg Take 1 [facility] mononitrate 5-05 tablet by ity of 60 mg 24 hr 00:00: mouth [place] tablet 00 daily. [facility] isosorbide 2-0 Yes [id number] 60mg Take 1 [facility] mononitrate 5-05 tablet by ity of 60 mg 24 hr 00:00: mouth [place] tablet 00 daily. [facility] isosorbide 2-0 Yes [id number] 60mg Take 1 [facility] mononitrate 5-05 tablet by ity of 60 mg 24 hr 00:00: mouth [place] tablet 00 daily. [facility] isosorbide 2021-0 Yes [id number] 60mg Take 1 [facility] mononitrate 5-05 tablet by ity of 60 mg 24 hr 00:00: mouth [place] tablet 00 daily. [facility] isosorbide 2021-0 Yes [id number] 60mg Take 1 [facility] mononitrate 5-05 tablet by ity of 60 mg 24 hr 00:00: mouth [place] tablet 00 daily. [facility] isosorbide 2021-0 Yes [id number] 60mg Take 1 [facility] mononitrate 5-05 tablet by ity of 60 mg 24 hr 00:00: mouth [place] tablet 00 daily. [facility] isosorbide 2021-0 Yes [id number] 60mg Take 1 [facility] mononitrate 5-05 tablet by ity of 60 mg 24 hr 00:00: mouth [place] tablet 00 daily. [facility] isosorbide 2021-0 Yes [id number] 60mg Take 1 [facility] mononitrate 5-05 tablet by ity of 60 mg 24 hr 00:00: mouth [place] tablet 00 daily. [facility] isosorbide 2021-0 Yes [id number] 60mg Take 1 [facility] mononitrate 5-05 tablet by ity of 60 mg 24 hr 00:00: mouth [place] tablet 00 daily. [facility] isosorbide 2021-0 Yes [id number] 60mg Take 1 [facility] mononitrate 5-05 tablet by ity of 60 mg 24 hr 00:00: mouth [place] tablet 00 daily. [facility] isosorbide 2021-0 Yes [id number] 60mg Take 1 [facility] mononitrate 5-05 tablet by ity of 60 mg 24 hr 00:00: mouth [place] tablet 00 daily. [facility] isosorbide 2021-0 Yes [id number] 60mg Take 1 [facility] mononitrate 5-05 tablet by ity of 60 mg 24 hr 00:00: mouth [place] tablet 00 daily. [facility] isosorbide 2-0 Yes [id number] 60mg Take 1 [facility] mononitrate 5-05 tablet by ity of 60 mg 24 hr 00:00: mouth [place] tablet 00 daily. [facility] isosorbide 2022-0 Yes [id number] 60mg Take 1 [facility] mononitrate 5-05 tablet by ity of 60 mg 24 hr 00:00: mouth [place] tablet 00 daily. [facility] isosorbide 2-0 Yes [id number] 60mg Take 1 [facility] mononitrate 5-05 tablet by ity of 60 mg 24 hr 00:00: mouth [place] tablet 00 daily. [facility] isosorbide 2-0 Yes [id number] 60mg Take 1 [facility] mononitrate 5-05 tablet by ity of 60 mg 24 hr 00:00: mouth [place] tablet 00 daily. [facility] isosorbide 2021-0 Yes [id number] 60mg Take 1 [facility] mononitrate 5-05 tablet by ity of 60 mg 24 hr 00:00: mouth [place] tablet 00 daily. [facility] isosorbide 2021-0 Yes [id number] 60mg Take 1 [facility] mononitrate 5-05 tablet by ity of 60 mg 24 hr 00:00: mouth [place] tablet 00 daily. [facility] isosorbide 2021-0 Yes [id number] 60mg Take 1 [facility] mononitrate 5-05 tablet by ity of 60 mg 24 hr 00:00: mouth [place] tablet 00 daily. [facility] isosorbide 2021-0 Yes [id number] 60mg Take 1 [facility] mononitrate 5-05 tablet by ity of 60 mg 24 hr 00:00: mouth [place] tablet 00 daily. [facility] isosorbide 2021-0 Yes [id number] 60mg Take 1 [facility] mononitrate 5-05 tablet by ity of 60 mg 24 hr 00:00: mouth [place] tablet 00 daily. [facility] isosorbide 2-0 Yes [id number] 60mg Take 1 [facility] mononitrate 5-05 tablet by ity of 60 mg 24 hr 00:00: mouth [place] tablet 00 daily. [facility] isosorbide 2-0 Yes [id number] 60mg Take 1 [facility] mononitrate 5-05 tablet by ity of 60 mg 24 hr 00:00: mouth [place] tablet 00 daily. [facility] isosorbide 2-0 Yes [id number] 60mg Take 1 [facility] mononitrate 5-05 tablet by ity of 60 mg 24 hr 00:00: mouth [place] tablet 00 daily. [facility] isosorbide 2021-0 Yes [id number] 60mg Take 1 [facility] mononitrate 5-05 tablet by ity of 60 mg 24 hr 00:00: mouth [place] tablet 00 daily. [facility] isosorbide 2021-0 Yes [id number] 60mg Take 1 [facility] mononitrate 5-05 tablet by ity of 60 mg 24 hr 00:00: mouth [place] tablet 00 daily. [facility] isosorbide 2021-0 Yes [id number] 60mg Take 1 [facility] mononitrate 5-05 tablet by ity of 60 mg 24 hr 00:00: mouth [place] tablet 00 daily. [facility] isosorbide 2021-0 Yes [id number] 60mg Take 1 [facility] mononitrate 5-05 tablet by ity of 60 mg 24 hr 00:00: mouth [place] tablet 00 daily. [facility] isosorbide 2021-0 Yes [id number] 60mg Take 1 [facility] mononitrate 5-05 tablet by ity of 60 mg 24 hr 00:00: mouth [place] tablet 00 daily. [facility] isosorbide 2021-0 Yes [id number] 60mg Take 1 [facility] mononitrate 5-05 tablet by ity of 60 mg 24 hr 00:00: mouth [place] tablet 00 daily. [facility] isosorbide 2021-0 Yes [id number] 60mg Take 1 [facility] mononitrate 5-05 tablet by ity of 60 mg 24 hr 00:00: mouth [place] tablet 00 daily. [facility] isosorbide 2021-0 Yes [id number] 60mg Take 1 [facility] mononitrate 5-05 tablet by ity of 60 mg 24 hr 00:00: mouth [place] tablet 00 daily. [facility] isosorbide 2021-0 Yes [id number] 60mg Take 1 [facility] mononitrate 5-05 tablet by ity of 60 mg 24 hr 00:00: mouth [place] tablet 00 daily. [facility] isosorbide 2-0 Yes [id number] 60mg Take 1 [facility] mononitrate 5-05 tablet by ity of 60 mg 24 hr 00:00: mouth [place] tablet 00 daily. [facility] isosorbide 2-0 Yes [id number] 60mg Take 1 [facility] mononitrate 5-05 tablet by ity of 60 mg 24 hr 00:00: mouth [place] tablet 00 daily. [facility] budesonide- Yes [id number] 2{puff} Inhale 2 [facility] formoteroL 4-26 Puffs 2 ity of (SYMBICORT) 00:00: (two) [place] 160-4.5 00 times Medical mcg/actuati daily. Branch on inhaler fluticasone 0 Yes [id number] 1{spray Use 1 [facility] propionate 4-26 } [place] in ity o f 50 00:00: each [place] mcg/actuati 00 nostril 2 Med ical on nasal (two) Branch spray times daily. EPINEPHrine Yes ADMINISTER [facility] 0.3 mg/0.3 4-26 0.3 ML IN ity of mL 00:00: THE MUSCLE [place] injection 00 1 TIME NOW Medi lula FOR 1 DOSE Branch budesonide- Yes [id number] 2{puff} Inhale 2 [facility] formoteroL 4-26 Puffs 2 ity of (SYMBICORT) 00:00: (two) [place] 160-4.5 00 times Medical mcg/actuati daily. Branch on inhaler fluticasone Yes [id number] 1{spray Use 1 [facility] propionate 4-26 } [place] in ity o f 50 00:00: each [place] mcg/actuati 00 nostril 2 Med ical on nasal (two) Branch spray times daily. EPINEPHrine Yes ADMINISTER [facility] 0.3 mg/0.3 4-26 0.3 ML IN ity of mL 00:00: THE MUSCLE [place] injection 00 1 TIME NOW Medi lula FOR 1 DOSE Branch budesonide- Yes [id number] 2{puff} Inhale 2 [facility] formoteroL 4-26 Puffs 2 ity of (SYMBICORT) 00:00: (two) [place] 160-4.5 00 times Medical mcg/actuati daily. Branch on inhaler fluticasone 0 Yes [id number] 1{spray Use 1 [facility] propionate 4-26 } [place] in ity o f 50 00:00: each [place] mcg/actuati 00 nostril 2 Med ical on nasal (two) Branch spray times daily. EPINEPHrine 2021-0 Yes ADMINISTER [facility] 0.3 mg/0.3 4-26 0.3 ML IN ity of mL 00:00: THE MUSCLE [place] injection 00 1 TIME NOW Medi lula FOR 1 DOSE Branch budesonide- 2021-0 Yes [id number] 2{puff} Inhale 2 [facility] formoteroL 4-26 Puffs 2 ity of (SYMBICORT) 00:00: (two) [place] 160-4.5 00 times Medical mcg/actuati daily. Branch on inhaler fluticasone 2021-0 Yes [id number] 1{spray Use 1 [facility] propionate 4-26 } [place] in ity o f 50 00:00: each [place] mcg/actuati 00 nostril 2 Med ical on nasal (two) Branch spray times daily. EPINEPHrine 2021-0 Yes ADMINISTER [facility] 0.3 mg/0.3 4-26 0.3 ML IN ity of mL 00:00: THE MUSCLE [place] injection 00 1 TIME NOW Medi lula FOR 1 DOSE Branch budesonide- 2021-0 Yes [id number] 2{puff} Inhale 2 [facility] formoteroL 4-26 Puffs 2 ity of (SYMBICORT) 00:00: (two) [place] 160-4.5 00 times Medical mcg/actuati daily. Branch on inhaler fluticasone 2021-0 Yes [id number] 1{spray Use 1 [facility] propionate 4-26 } [place] in ity o f 50 00:00: each [place] mcg/actuati 00 nostril 2 Med ical on nasal (two) Branch spray times daily. EPINEPHrine 2021-0 Yes ADMINISTER [facility] 0.3 mg/0.3 4-26 0.3 ML IN ity of mL 00:00: THE MUSCLE [place] injection 00 1 TIME NOW Medi lula FOR 1 DOSE Branch budesonide- 2021-0 Yes [id number] 2{puff} Inhale 2 [facility] formoteroL 4-26 Puffs 2 ity of (SYMBICORT) 00:00: (two) [place] 160-4.5 00 times Medical mcg/actuati daily. Branch on inhaler fluticasone 2021-0 Yes [id number] 1{spray Use 1 [facility] propionate 4-26 } [place] in ity o f 50 00:00: each [place] mcg/actuati 00 nostril 2 Med ical on nasal (two) Branch spray times daily. EPINEPHrine 2021-0 Yes ADMINISTER [facility] 0.3 mg/0.3 4-26 0.3 ML IN ity of mL 00:00: THE MUSCLE [place] injection 00 1 TIME NOW Medi lula FOR 1 DOSE Branch budesonide- 2021-0 Yes [id number] 2{puff} Inhale 2 [facility] formoteroL 4-26 Puffs 2 ity of (SYMBICORT) 00:00: (two) [place] 160-4.5 00 times Medical mcg/actuati daily. Branch on inhaler fluticasone 2021-0 Yes [id number] 1{spray Use 1 [facility] propionate 4-26 } [place] in ity o f 50 00:00: each [place] mcg/actuati 00 nostril 2 Med ical on nasal (two) Branch spray times daily. EPINEPHrine 2021- Yes ADMINISTER [facility] 0.3 mg/0.3 4-26 0.3 ML IN ity of mL 00:00: THE MUSCLE [place] injection 00 1 TIME NOW Medi lula FOR 1 DOSE Branch budesonide- 2021- Yes [id number] 2{puff} Inhale 2 [facility] formoteroL 4-26 Puffs 2 ity of (SYMBICORT) 00:00: (two) [place] 160-4.5 00 times Medical mcg/actuati daily. Branch on inhaler fluticasone Yes [id number] 1{spray Use 1 [facility] propionate 4-26 } [place] in ity o f 50 00:00: each [place] mcg/actuati 00 nostril 2 Med ical on nasal (two) Branch spray times daily. EPINEPHrine 2021-0 Yes ADMINISTER [facility] 0.3 mg/0.3 4-26 0.3 ML IN ity of mL 00:00: THE MUSCLE [place] injection 00 1 TIME NOW Medi lula FOR 1 DOSE Branch budesonide- 2021-0 Yes [id number] 2{puff} Inhale 2 [facility] formoteroL 4-26 Puffs 2 ity of (SYMBICORT) 00:00: (two) [place] 160-4.5 00 times Medical mcg/actuati daily. Branch on inhaler fluticasone 2021-0 Yes [id number] 1{spray Use 1 [facility] propionate 4-26 } [place] in ity o f 50 00:00: each [place] mcg/actuati 00 nostril 2 Med ical on nasal (two) Branch spray times daily. EPINEPHrine 2021-0 Yes ADMINISTER [facility] 0.3 mg/0.3 4-26 0.3 ML IN ity of mL 00:00: THE MUSCLE [place] injection 00 1 TIME NOW Medi lula FOR 1 DOSE Branch budesonide- 0 Yes [id number] 2{puff} Inhale 2 [facility] formoteroL 4-26 Puffs 2 ity of (SYMBICORT) 00:00: (two) [place] 160-4.5 00 times Medical mcg/actuati daily. Branch on inhaler fluticasone 2021-0 Yes [id number] 1{spray Use 1 [facility] propionate 4-26 } [place] in ity o f 50 00:00: each [place] mcg/actuati 00 nostril 2 Med ical on nasal (two) Branch spray times daily. EPINEPHrine 2021-0 Yes ADMINISTER [facility] 0.3 mg/0.3 4-26 0.3 ML IN ity of mL 00:00: THE MUSCLE [place] injection 00 1 TIME NOW Medi lula FOR 1 DOSE Branch budesonide- 0 Yes [id number] 2{puff} Inhale 2 [facility] formoteroL 4-26 Puffs 2 ity of (SYMBICORT) 00:00: (two) [place] 160-4.5 00 times Medical mcg/actuati daily. Branch on inhaler fluticasone 0 Yes [id number] 1{spray Use 1 [facility] propionate 4-26 } [place] in ity o f 50 00:00: each [place] mcg/actuati 00 nostril 2 Med ical on nasal (two) Branch spray times daily. EPINEPHrine 2021-0 Yes ADMINISTER [facility] 0.3 mg/0.3 4-26 0.3 ML IN ity of mL 00:00: THE MUSCLE [place] injection 00 1 TIME NOW Medi lula FOR 1 DOSE Branch budesonide- 2021-0 Yes [id number] 2{puff} Inhale 2 [facility] formoteroL 4-26 Puffs 2 ity of (SYMBICORT) 00:00: (two) [place] 160-4.5 00 times Medical mcg/actuati daily. Branch on inhaler fluticasone 2021-0 Yes [id number] 1{spray Use 1 [facility] propionate 4-26 } [place] in ity o f 50 00:00: each [place] mcg/actuati 00 nostril 2 Med ical on nasal (two) Branch spray times daily. EPINEPHrine Yes ADMINISTER [facility] 0.3 mg/0.3 4-26 0.3 ML IN ity of mL 00:00: THE MUSCLE [place] injection 00 1 TIME NOW Medi lula FOR 1 DOSE Branch budesonide- Yes [id number] 2{puff} Inhale 2 [facility] formoteroL 4-26 Puffs 2 ity of (SYMBICORT) 00:00: (two) [place] 160-4.5 00 times Medical mcg/actuati daily. Branch on inhaler fluticasone Yes [id number] 1{spray Use 1 [facility] propionate 4-26 } [place] in ity o f 50 00:00: each [place] mcg/actuati 00 nostril 2 Med ical on nasal (two) Branch spray times daily. EPINEPHrine Yes ADMINISTER [facility] 0.3 mg/0.3 4-26 0.3 ML IN ity of mL 00:00: THE MUSCLE [place] injection 00 1 TIME NOW Medi lula FOR 1 DOSE Branch budesonide- Yes [id number] 2{puff} Inhale 2 [facility] formoteroL 4-26 Puffs 2 ity of (SYMBICORT) 00:00: (two) [place] 160-4.5 00 times Medical mcg/actuati daily. Branch on inhaler fluticasone Yes [id number] 1{spray Use 1 [facility] propionate 4-26 } [place] in ity o f 50 00:00: each [place] mcg/actuati 00 nostril 2 Med ical on nasal (two) Branch spray times daily. EPINEPHrine Yes ADMINISTER [facility] 0.3 mg/0.3 4-26 0.3 ML IN ity of mL 00:00: THE MUSCLE [place] injection 00 1 TIME NOW Medi lula FOR 1 DOSE Branch budesonide- 0 Yes [id number] 2{puff} Inhale 2 [facility] formoteroL 4-26 Puffs 2 ity of (SYMBICORT) 00:00: (two) [place] 160-4.5 00 times Medical mcg/actuati daily. Branch on inhaler fluticasone 0 Yes [id number] 1{spray Use 1 [facility] propionate 4-26 } [place] in ity o f 50 00:00: each [place] mcg/actuati 00 nostril 2 Med ical on nasal (two) Branch spray times daily. EPINEPHrine Yes ADMINISTER [facility] 0.3 mg/0.3 4-26 0.3 ML IN ity of mL 00:00: THE MUSCLE [place] injection 00 1 TIME NOW Medi lula FOR 1 DOSE Branch budesonide- 0 Yes [id number] 2{puff} Inhale 2 [facility] formoteroL 4-26 Puffs 2 ity of (SYMBICORT) 00:00: (two) [place] 160-4.5 00 times Medical mcg/actuati daily. Branch on inhaler fluticasone 0 Yes [id number] 1{spray Use 1 [facility] propionate 4-26 } [place] in ity o f 50 00:00: each [place] mcg/actuati 00 nostril 2 Med ical on nasal (two) Branch spray times daily. EPINEPHrine 2021-0 Yes ADMINISTER [facility] 0.3 mg/0.3 4-26 0.3 ML IN ity of mL 00:00: THE MUSCLE [place] injection 00 1 TIME NOW Medi lula FOR 1 DOSE Branch budesonide- 0 Yes [id number] 2{puff} Inhale 2 [facility] formoteroL 4-26 Puffs 2 ity of (SYMBICORT) 00:00: (two) [place] 160-4.5 00 times Medical mcg/actuati daily. Branch on inhaler fluticasone 0 Yes [id number] 1{spray Use 1 [facility] propionate 4-26 } [place] in ity o f 50 00:00: each [place] mcg/actuati 00 nostril 2 Med ical on nasal (two) Branch spray times daily. EPINEPHrine 2021-0 Yes ADMINISTER [facility] 0.3 mg/0.3 4-26 0.3 ML IN ity of mL 00:00: THE MUSCLE [place] injection 00 1 TIME NOW Medi lula FOR 1 DOSE Branch budesonide- 2021-0 Yes [id number] 2{puff} Inhale 2 [facility] formoteroL 4-26 Puffs 2 ity of (SYMBICORT) 00:00: (two) [place] 160-4.5 00 times Medical mcg/actuati daily. Branch on inhaler fluticasone 2021-0 Yes [id number] 1{spray Use 1 [facility] propionate 4-26 } [place] in ity o f 50 00:00: each [place] mcg/actuati 00 nostril 2 Med ical on nasal (two) Branch spray times daily. EPINEPHrine 2021-0 Yes ADMINISTER [facility] 0.3 mg/0.3 4-26 0.3 ML IN ity of mL 00:00: THE MUSCLE [place] injection 00 1 TIME NOW Medi lula FOR 1 DOSE Branch budesonide- 2021-0 Yes [id number] 2{puff} Inhale 2 [facility] formoteroL 4-26 Puffs 2 ity of (SYMBICORT) 00:00: (two) [place] 160-4.5 00 times Medical mcg/actuati daily. Branch on inhaler fluticasone 2021-0 Yes [id number] 1{spray Use 1 [facility] propionate 4-26 } [place] in ity o f 50 00:00: each [place] mcg/actuati 00 nostril 2 Med ical on nasal (two) Branch spray times daily. EPINEPHrine 2021-0 Yes ADMINISTER [facility] 0.3 mg/0.3 4-26 0.3 ML IN ity of mL 00:00: THE MUSCLE [place] injection 00 1 TIME NOW Medi lula FOR 1 DOSE Branch budesonide- 2021-0 Yes [id number] 2{puff} Inhale 2 [facility] formoteroL 4-26 Puffs 2 ity of (SYMBICORT) 00:00: (two) [place] 160-4.5 00 times Medical mcg/actuati daily. Branch on inhaler fluticasone 2021-0 Yes [id number] 1{spray Use 1 [facility] propionate 4-26 } [place] in ity o f 50 00:00: each [place] mcg/actuati 00 nostril 2 Med ical on nasal (two) Branch spray times daily. EPINEPHrine 2021-0 Yes ADMINISTER [facility] 0.3 mg/0.3 4-26 0.3 ML IN ity of mL 00:00: THE MUSCLE [place] injection 00 1 TIME NOW Medi lula FOR 1 DOSE Branch budesonide- 2021-0 Yes [id number] 2{puff} Inhale 2 [facility] formoteroL 4-26 Puffs 2 ity of (SYMBICORT) 00:00: (two) [place] 160-4.5 00 times Medical mcg/actuati daily. Branch on inhaler fluticasone 2021-0 Yes [id number] 1{spray Use 1 [facility] propionate 4-26 } [place] in ity o f 50 00:00: each [place] mcg/actuati 00 nostril 2 Med ical on nasal (two) Branch spray times daily. EPINEPHrine 2021-0 Yes ADMINISTER [facility] 0.3 mg/0.3 4-26 0.3 ML IN ity of mL 00:00: THE MUSCLE [place] injection 00 1 TIME NOW Medi lula FOR 1 DOSE Branch budesonide- 2021-0 Yes [id number] 2{puff} Inhale 2 [facility] formoteroL 4-26 Puffs 2 ity of (SYMBICORT) 00:00: (two) [place] 160-4.5 00 times Medical mcg/actuati daily. Branch on inhaler fluticasone 2021-0 Yes [id number] 1{spray Use 1 [facility] propionate 4-26 } [place] in ity o f 50 00:00: each [place] mcg/actuati 00 nostril 2 Med ical on nasal (two) Branch spray times daily. EPINEPHrine 2021- Yes ADMINISTER [facility] 0.3 mg/0.3 4-26 0.3 ML IN ity of mL 00:00: THE MUSCLE [place] injection 00 1 TIME NOW Medi lula FOR 1 DOSE Branch budesonide- 2021-0 Yes [id number] 2{puff} Inhale 2 [facility] formoteroL 4-26 Puffs 2 ity of (SYMBICORT) 00:00: (two) [place] 160-4.5 00 times Medical mcg/actuati daily. Branch on inhaler fluticasone 2021-0 Yes [id number] 1{spray Use 1 [facility] propionate 4-26 } [place] in ity o f 50 00:00: each [place] mcg/actuati 00 nostril 2 Med ical on nasal (two) Branch spray times daily. EPINEPHrine 2021-0 Yes ADMINISTER [facility] 0.3 mg/0.3 4-26 0.3 ML IN ity of mL 00:00: THE MUSCLE [place] injection 00 1 TIME NOW Medi lula FOR 1 DOSE Branch budesonide- 2021-0 Yes [id number] 2{puff} Inhale 2 [facility] formoteroL 4-26 Puffs 2 ity of (SYMBICORT) 00:00: (two) [place] 160-4.5 00 times Medical mcg/actuati daily. Branch on inhaler fluticasone 2021-0 Yes [id number] 1{spray Use 1 [facility] propionate 4-26 } [place] in ity o f 50 00:00: each [place] mcg/actuati 00 nostril 2 Med ical on nasal (two) Branch spray times daily. EPINEPHrine 2021-0 Yes ADMINISTER [facility] 0.3 mg/0.3 4-26 0.3 ML IN ity of mL 00:00: THE MUSCLE [place] injection 00 1 TIME NOW Medi lula FOR 1 DOSE Branch budesonide- 2021-0 Yes [id number] 2{puff} Inhale 2 [facility] formoteroL 4-26 Puffs 2 ity of (SYMBICORT) 00:00: (two) [place] 160-4.5 00 times Medical mcg/actuati daily. Branch on inhaler fluticasone 2021-0 Yes [id number] 1{spray Use 1 [facility] propionate 4-26 } [place] in ity o f 50 00:00: each [place] mcg/actuati 00 nostril 2 Med ical on nasal (two) Branch spray times daily. EPINEPHrine 2021-0 Yes ADMINISTER [facility] 0.3 mg/0.3 4-26 0.3 ML IN ity of mL 00:00: THE MUSCLE [place] injection 00 1 TIME NOW Medi lula FOR 1 DOSE Branch budesonide- 2021-0 Yes [id number] 2{puff} Inhale 2 [facility] formoteroL 4-26 Puffs 2 ity of (SYMBICORT) 00:00: (two) [place] 160-4.5 00 times Medical mcg/actuati daily. Branch on inhaler fluticasone 2021-0 Yes [id number] 1{spray Use 1 [facility] propionate 4-26 } [place] in ity o f 50 00:00: each [place] mcg/actuati 00 nostril 2 Med ical on nasal (two) Branch spray times daily. EPINEPHrine 2021-0 Yes ADMINISTER [facility] 0.3 mg/0.3 4-26 0.3 ML IN ity of mL 00:00: THE MUSCLE [place] injection 00 1 TIME NOW Medi lula FOR 1 DOSE Branch budesonide- 2021-0 Yes [id number] 2{puff} Inhale 2 [facility] formoteroL 4-26 Puffs 2 ity of (SYMBICORT) 00:00: (two) [place] 160-4.5 00 times Medical mcg/actuati daily. Branch on inhaler fluticasone 2022-0 Yes [id number] 1{spray Use 1 [facility] propionate 4-26 } [place] in ity o f 50 00:00: each [place] mcg/actuati 00 nostril 2 Med ical on nasal (two) Branch spray times daily. EPINEPHrine 2021- Yes ADMINISTER [facility] 0.3 mg/0.3 4-26 0.3 ML IN ity of mL 00:00: THE MUSCLE [place] injection 00 1 TIME NOW Medi lula FOR 1 DOSE Branch budesonide- 0 Yes [id number] 2{puff} Inhale 2 [facility] formoteroL 4-26 Puffs 2 ity of (SYMBICORT) 00:00: (two) [place] 160-4.5 00 times Medical mcg/actuati daily. Branch on inhaler fluticasone Yes [id number] 1{spray Use 1 [facility] propionate 4-26 } [place] in ity o f 50 00:00: each [place] mcg/actuati 00 nostril 2 Med ical on nasal (two) Branch spray times daily. EPINEPHrine Yes ADMINISTER [facility] 0.3 mg/0.3 4-26 0.3 ML IN ity of mL 00:00: THE MUSCLE [place] injection 00 1 TIME NOW Medi lula FOR 1 DOSE Branch budesonide- 0 Yes [id number] 2{puff} Inhale 2 [facility] formoteroL 4-26 Puffs 2 ity of (SYMBICORT) 00:00: (two) [place] 160-4.5 00 times Medical mcg/actuati daily. Branch on inhaler fluticasone 0 Yes [id number] 1{spray Use 1 [facility] propionate 4-26 } [place] in ity o f 50 00:00: each [place] mcg/actuati 00 nostril 2 Med ical on nasal (two) Branch spray times daily. EPINEPHrine 2021-0 Yes ADMINISTER [facility] 0.3 mg/0.3 4-26 0.3 ML IN ity of mL 00:00: THE MUSCLE [place] injection 00 1 TIME NOW Medi lula FOR 1 DOSE Branch budesonide- 0 Yes [id number] 2{puff} Inhale 2 [facility] formoteroL 4-26 Puffs 2 ity of (SYMBICORT) 00:00: (two) [place] 160-4.5 00 times Medical mcg/actuati daily. Branch on inhaler fluticasone Yes [id number] 1{spray Use 1 [facility] propionate 4-26 } [place] in ity o f 50 00:00: each [place] mcg/actuati 00 nostril 2 Med ical on nasal (two) Branch spray times daily. EPINEPHrine Yes ADMINISTER [facility] 0.3 mg/0.3 4-26 0.3 ML IN ity of mL 00:00: THE MUSCLE [place] injection 00 1 TIME NOW Medi lula FOR 1 DOSE Branch budesonide- Yes [id number] 2{puff} Inhale 2 [facility] formoteroL 4-26 Puffs 2 ity of (SYMBICORT) 00:00: (two) [place] 160-4.5 00 times Medical mcg/actuati daily. Branch on inhaler fluticasone Yes [id number] 1{spray Use 1 [facility] propionate 4-26 } [place] in ity o f 50 00:00: each [place] mcg/actuati 00 nostril 2 Med ical on nasal (two) Branch spray times daily. EPINEPHrine Yes ADMINISTER [facility] 0.3 mg/0.3 4-26 0.3 ML IN ity of mL 00:00: THE MUSCLE [place] injection 00 1 TIME NOW Medi lula FOR 1 DOSE Branch budesonide- 0 Yes [id number] 2{puff} Inhale 2 [facility] formoteroL 4-26 Puffs 2 ity of (SYMBICORT) 00:00: (two) [place] 160-4.5 00 times Medical mcg/actuati daily. Branch on inhaler fluticasone 0 Yes [id number] 1{spray Use 1 [facility] propionate 4-26 } [place] in ity o f 50 00:00: each [place] mcg/actuati 00 nostril 2 Med ical on nasal (two) Branch spray times daily. EPINEPHrine 2021-0 Yes ADMINISTER [facility] 0.3 mg/0.3 4-26 0.3 ML IN ity of mL 00:00: THE MUSCLE [place] injection 00 1 TIME NOW Medi lula FOR 1 DOSE Branch budesonide- 0 Yes [id number] 2{puff} Inhale 2 [facility] formoteroL 4-26 Puffs 2 ity of (SYMBICORT) 00:00: (two) [place] 160-4.5 00 times Medical mcg/actuati daily. Branch on inhaler fluticasone 0 Yes [id number] 1{spray Use 1 [facility] propionate 4-26 } [place] in ity o f 50 00:00: each [place] mcg/actuati 00 nostril 2 Med ical on nasal (two) Branch spray times daily. EPINEPHrine 2021-0 Yes ADMINISTER [facility] 0.3 mg/0.3 4-26 0.3 ML IN ity of mL 00:00: THE MUSCLE [place] injection 00 1 TIME NOW Medi lula FOR 1 DOSE Branch budesonide- 0 Yes [id number] 2{puff} Inhale 2 [facility] formoteroL 4-26 Puffs 2 ity of (SYMBICORT) 00:00: (two) [place] 160-4.5 00 times Medical mcg/actuati daily. Branch on inhaler fluticasone Yes [id number] 1{spray Use 1 [facility] propionate 4-26 } [place] in ity o f 50 00:00: each [place] mcg/actuati 00 nostril 2 Med ical on nasal (two) Branch spray times daily. EPINEPHrine Yes ADMINISTER [facility] 0.3 mg/0.3 4-26 0.3 ML IN ity of mL 00:00: THE MUSCLE [place] injection 00 1 TIME NOW Medi lula FOR 1 DOSE Branch budesonide- Yes [id number] 2{puff} Inhale 2 [facility] formoteroL 4-26 Puffs 2 ity of (SYMBICORT) 00:00: (two) [place] 160-4.5 00 times Medical mcg/actuati daily. Branch on inhaler fluticasone 0 Yes [id number] 1{spray Use 1 [facility] propionate 4-26 } [place] in ity o f 50 00:00: each [place] mcg/actuati 00 nostril 2 Med ical on nasal (two) Branch spray times daily. EPINEPHrine 2021-0 Yes ADMINISTER [facility] 0.3 mg/0.3 4-26 0.3 ML IN ity of mL 00:00: THE MUSCLE [place] injection 00 1 TIME NOW Medi lula FOR 1 DOSE Branch budesonide- 0 Yes [id number] 2{puff} Inhale 2 [facility] formoteroL 4-26 Puffs 2 ity of (SYMBICORT) 00:00: (two) [place] 160-4.5 00 times Medical mcg/actuati daily. Branch on inhaler fluticasone 2021-0 Yes [id number] 1{spray Use 1 [facility] propionate 4-26 } [place] in ity o f 50 00:00: each [place] mcg/actuati 00 nostril 2 Med ical on nasal (two) Branch spray times daily. EPINEPHrine 2021-0 Yes ADMINISTER [facility] 0.3 mg/0.3 4-26 0.3 ML IN ity of mL 00:00: THE MUSCLE [place] injection 00 1 TIME NOW Medi lula FOR 1 DOSE Branch budesonide- 2021-0 Yes [id number] 2{puff} Inhale 2 [facility] formoteroL 4-26 Puffs 2 ity of (SYMBICORT) 00:00: (two) [place] 160-4.5 00 times Medical mcg/actuati daily. Branch on inhaler fluticasone 2021-0 Yes [id number] 1{spray Use 1 [facility] propionate 4-26 } [place] in ity o f 50 00:00: each [place] mcg/actuati 00 nostril 2 Med ical on nasal (two) Branch spray times daily. EPINEPHrine 2021-0 Yes ADMINISTER [facility] 0.3 mg/0.3 4-26 0.3 ML IN ity of mL 00:00: THE MUSCLE [place] injection 00 1 TIME NOW Medi lula FOR 1 DOSE Branch budesonide- 2021-0 Yes [id number] 2{puff} Inhale 2 [facility] formoteroL 4-26 Puffs 2 ity of (SYMBICORT) 00:00: (two) [place] 160-4.5 00 times Medical mcg/actuati daily. Branch on inhaler fluticasone 2021-0 Yes [id number] 1{spray Use 1 [facility] propionate 4-26 } [place] in ity o f 50 00:00: each [place] mcg/actuati 00 nostril 2 Med ical on nasal (two) Branch spray times daily. EPINEPHrine 2021-0 Yes ADMINISTER [facility] 0.3 mg/0.3 4-26 0.3 ML IN ity of mL 00:00: THE MUSCLE [place] injection 00 1 TIME NOW Medi lula FOR 1 DOSE Branch budesonide- 2021-0 Yes [id number] 2{puff} Inhale 2 [facility] formoteroL 4-26 Puffs 2 ity of (SYMBICORT) 00:00: (two) [place] 160-4.5 00 times Medical mcg/actuati daily. Branch on inhaler fluticasone 2021-0 Yes [id number] 1{spray Use 1 [facility] propionate 4-26 } [place] in ity o f 50 00:00: each [place] mcg/actuati 00 nostril 2 Med ical on nasal (two) Branch spray times daily. EPINEPHrine 2021-0 Yes ADMINISTER [facility] 0.3 mg/0.3 4-26 0.3 ML IN ity of mL 00:00: THE MUSCLE [place] injection 00 1 TIME NOW Medi lula FOR 1 DOSE Branch budesonide- 0 Yes [id number] 2{puff} Inhale 2 [facility] formoteroL 4-26 Puffs 2 ity of (SYMBICORT) 00:00: (two) [place] 160-4.5 00 times Medical mcg/actuati daily. Branch on inhaler fluticasone 2021-0 Yes [id number] 1{spray Use 1 [facility] propionate 4-26 } [place] in ity o f 50 00:00: each [place] mcg/actuati 00 nostril 2 Med ical on nasal (two) Branch spray times daily. EPINEPHrine 2021-0 Yes ADMINISTER [facility] 0.3 mg/0.3 4-26 0.3 ML IN ity of mL 00:00: THE MUSCLE [place] injection 00 1 TIME NOW Medi lula FOR 1 DOSE Branch budesonide- 0 Yes [id number] 2{puff} Inhale 2 [facility] formoteroL 4-26 Puffs 2 ity of (SYMBICORT) 00:00: (two) [place] 160-4.5 00 times Medical mcg/actuati daily. Branch on inhaler fluticasone 0 Yes [id number] 1{spray Use 1 [facility] propionate 4-26 } [place] in ity o f 50 00:00: each [place] mcg/actuati 00 nostril 2 Med ical on nasal (two) Branch spray times daily. EPINEPHrine 2021-0 Yes ADMINISTER [facility] 0.3 mg/0.3 4-26 0.3 ML IN ity of mL 00:00: THE MUSCLE [place] injection 00 1 TIME NOW Medi lula FOR 1 DOSE Branch budesonide- 2021-0 Yes [id number] 2{puff} Inhale 2 [facility] formoteroL 4-26 Puffs 2 ity of (SYMBICORT) 00:00: (two) [place] 160-4.5 00 times Medical mcg/actuati daily. Branch on inhaler fluticasone Yes [id number] 1{spray Use 1 [facility] propionate 4-26 } [place] in ity o f 50 00:00: each [place] mcg/actuati 00 nostril 2 Med ical on nasal (two) Branch spray times daily. EPINEPHrine Yes ADMINISTER [facility] 0.3 mg/0.3 4-26 0.3 ML IN ity of mL 00:00: THE MUSCLE [place] injection 00 1 TIME NOW Medi lula FOR 1 DOSE Branch budesonide- 0 Yes [id number] 2{puff} Inhale 2 [facility] formoteroL 4-26 Puffs 2 ity of (SYMBICORT) 00:00: (two) [place] 160-4.5 00 times Medical mcg/actuati daily. Branch on inhaler fluticasone Yes [id number] 1{spray Use 1 [facility] propionate 4-26 } [place] in ity o f 50 00:00: each [place] mcg/actuati 00 nostril 2 Med ical on nasal (two) Branch spray times daily. EPINEPHrine Yes ADMINISTER [facility] 0.3 mg/0.3 4-26 0.3 ML IN ity of mL 00:00: THE MUSCLE [place] injection 00 1 TIME NOW Medi lula FOR 1 DOSE Branch budesonide- 0 Yes [id number] 2{puff} Inhale 2 [facility] formoteroL 4-26 Puffs 2 ity of (SYMBICORT) 00:00: (two) [place] 160-4.5 00 times Medical mcg/actuati daily. Branch on inhaler fluticasone 0 Yes [id number] 1{spray Use 1 [facility] propionate 4-26 } [place] in ity o f 50 00:00: each [place] mcg/actuati 00 nostril 2 Med ical on nasal (two) Branch spray times daily. EPINEPHrine 0 Yes ADMINISTER [facility] 0.3 mg/0.3 4-26 0.3 ML IN ity of mL 00:00: THE MUSCLE [place] injection 00 1 TIME NOW Medi lula FOR 1 DOSE Branch budesonide- 0 Yes [id number] 2{puff} Inhale 2 [facility] formoteroL 4-26 Puffs 2 ity of (SYMBICORT) 00:00: (two) [place] 160-4.5 00 times Medical mcg/actuati daily. Branch on inhaler fluticasone Yes [id number] 1{spray Use 1 [facility] propionate 4-26 } [place] in ity o f 50 00:00: each [place] mcg/actuati 00 nostril 2 Med ical on nasal (two) Branch spray times daily. EPINEPHrine Yes ADMINISTER [facility] 0.3 mg/0.3 4-26 0.3 ML IN ity of mL 00:00: THE MUSCLE [place] injection 00 1 TIME NOW Medi lula FOR 1 DOSE Branch budesonide- Yes [id number] 2{puff} Inhale 2 [facility] formoteroL 4-26 Puffs 2 ity of (SYMBICORT) 00:00: (two) [place] 160-4.5 00 times Medical mcg/actuati daily. Branch on inhaler EPINEPHrine Yes ADMINISTER [facility] 0.3 mg/0.3 4-26 0.3 ML IN ity of mL 00:00: THE MUSCLE [place] injection 00 1 TIME NOW Medi lula FOR 1 DOSE Branch budesonide- Yes [id number] 2{puff} Inhale 2 [facility] formoteroL 4-26 Puffs 2 ity of (SYMBICORT) 00:00: (two) [place] 160-4.5 00 times Medical mcg/actuati daily. Branch on inhaler EPINEPHrine Yes ADMINISTER [facility] 0.3 mg/0.3 4-26 0.3 ML IN ity of mL 00:00: THE MUSCLE [place] injection 00 1 TIME NOW Medi lula FOR 1 DOSE Branch budesonide- 0 Yes [id number] 2{puff} Inhale 2 [facility] formoteroL 4-26 Puffs 2 ity of (SYMBICORT) 00:00: (two) [place] 160-4.5 00 times Medical mcg/actuati daily. Branch on inhaler EPINEPHrine Yes ADMINISTER [facility] 0.3 mg/0.3 4-26 0.3 ML IN ity of mL 00:00: THE MUSCLE [place] injection 00 1 TIME NOW Medi lula FOR 1 DOSE Branch budesonide- 2022-0 Yes [id number] 2{puff} Inhale 2 [facility] formoteroL 4-26 Puffs 2 ity of (SYMBICORT) 00:00: (two) [place] 160-4.5 00 times Medical mcg/actuati daily. Branch on inhaler EPINEPHrine Yes ADMINISTER [facility] 0.3 mg/0.3 4-26 0.3 ML IN ity of mL 00:00: THE MUSCLE [place] injection 00 1 TIME NOW Medi lula FOR 1 DOSE Branch budesonide- 2021-0 Yes [id number] 2{puff} Inhale 2 [facility] formoteroL 4-26 Puffs 2 ity of (SYMBICORT) 00:00: (two) [place] 160-4.5 00 times Medical mcg/actuati daily. Branch on inhaler EPINEPHrine Yes ADMINISTER [facility] 0.3 mg/0.3 4-26 0.3 ML IN ity of mL 00:00: THE MUSCLE [place] injection 00 1 TIME NOW Medi lula FOR 1 DOSE Branch budesonide- 2021-0 Yes [id number] 2{puff} Inhale 2 [facility] formoteroL 4-26 Puffs 2 ity of (SYMBICORT) 00:00: (two) [place] 160-4.5 00 times Medical mcg/actuati daily. Branch on inhaler EPINEPHrine Yes ADMINISTER [facility] 0.3 mg/0.3 4-26 0.3 ML IN ity of mL 00:00: THE MUSCLE [place] injection 00 1 TIME NOW Medi lula FOR 1 DOSE Branch budesonide- 2021-0 Yes [id number] 2{puff} Inhale 2 [facility] formoteroL 4-26 Puffs 2 ity of (SYMBICORT) 00:00: (two) [place] 160-4.5 00 times Medical mcg/actuati daily. Branch on inhaler EPINEPHrine 2021-0 Yes ADMINISTER [facility] 0.3 mg/0.3 4-26 0.3 ML IN ity of mL 00:00: THE MUSCLE [place] injection 00 1 TIME NOW Medi lula FOR 1 DOSE Branch budesonide- 2021-0 Yes [id number] 2{puff} Inhale 2 [facility] formoteroL 4-26 Puffs 2 ity of (SYMBICORT) 00:00: (two) [place] 160-4.5 00 times Medical mcg/actuati daily. Branch on inhaler EPINEPHrine 2022-0 Yes ADMINISTER [facility] 0.3 mg/0.3 4-26 0.3 ML IN ity of mL 00:00: THE MUSCLE [place] injection 00 1 TIME NOW Medi lula FOR 1 DOSE Branch budesonide- Yes [id number] 2{puff} Inhale 2 [facility] formoteroL 4-26 Puffs 2 ity of (SYMBICORT) 00:00: (two) [place] 160-4.5 00 times Medical mcg/actuati daily. Branch on inhaler EPINEPHrine Yes ADMINISTER [facility] 0.3 mg/0.3 4-26 0.3 ML IN ity of mL 00:00: THE MUSCLE [place] injection 00 1 TIME NOW Medi lula FOR 1 DOSE Branch budesonide- Yes [id number] 2{puff} Inhale 2 [facility] formoteroL 4-26 Puffs 2 ity of (SYMBICORT) 00:00: (two) [place] 160-4.5 00 times Medical mcg/actuati daily. Branch on inhaler EPINEPHrine Yes ADMINISTER [facility] 0.3 mg/0.3 4-26 0.3 ML IN ity of mL 00:00: THE MUSCLE [place] injection 00 1 TIME NOW Medi lula FOR 1 DOSE Branch budesonide- Yes [id number] 2{puff} Inhale 2 [facility] formoteroL 4-26 Puffs 2 ity of (SYMBICORT) 00:00: (two) [place] 160-4.5 00 times Medical mcg/actuati daily. Branch on inhaler EPINEPHrine Yes ADMINISTER [facility] 0.3 mg/0.3 4-26 0.3 ML IN ity of mL 00:00: THE MUSCLE [place] injection 00 1 TIME NOW Medi lula FOR 1 DOSE Branch budesonide- 2021-0 Yes [id number] 2{puff} Inhale 2 [facility] formoteroL 4-26 Puffs 2 ity of (SYMBICORT) 00:00: (two) [place] 160-4.5 00 times Medical mcg/actuati daily. Branch on inhaler EPINEPHrine Yes ADMINISTER [facility] 0.3 mg/0.3 4-26 0.3 ML IN ity of mL 00:00: THE MUSCLE [place] injection 00 1 TIME NOW Medi lula FOR 1 DOSE Branch budesonide- 2022-0 Yes [id number] 2{puff} Inhale 2 [facility] formoteroL 4-26 Puffs 2 ity of (SYMBICORT) 00:00: (two) [place] 160-4.5 00 times Medical mcg/actuati daily. Branch on inhaler EPINEPHrine 2021- Yes ADMINISTER [facility] 0.3 mg/0.3 4-26 0.3 ML IN ity of mL 00:00: THE MUSCLE [place] injection 00 1 TIME NOW Medi lula FOR 1 DOSE Branch budesonide- 2021-0 Yes [id number] 2{puff} Inhale 2 [facility] formoteroL 4-26 Puffs 2 ity of (SYMBICORT) 00:00: (two) [place] 160-4.5 00 times Medical mcg/actuati daily. Branch on inhaler EPINEPHrine Yes ADMINISTER [facility] 0.3 mg/0.3 4-26 0.3 ML IN ity of mL 00:00: THE MUSCLE [place] injection 00 1 TIME NOW Medi lula FOR 1 DOSE Branch budesonide- 2021-0 Yes [id number] 2{puff} Inhale 2 [facility] formoteroL 4-26 Puffs 2 ity of (SYMBICORT) 00:00: (two) [place] 160-4.5 00 times Medical mcg/actuati daily. Branch on inhaler EPINEPHrine 2021-0 Yes ADMINISTER [facility] 0.3 mg/0.3 4-26 0.3 ML IN ity of mL 00:00: THE MUSCLE [place] injection 00 1 TIME NOW Medi lula FOR 1 DOSE Branch budesonide- 2021-0 Yes [id number] 2{puff} Inhale 2 [facility] formoteroL 4-26 Puffs 2 ity of (SYMBICORT) 00:00: (two) [place] 160-4.5 00 times Medical mcg/actuati daily. Branch on inhaler EPINEPHrine 2021-0 Yes ADMINISTER [facility] 0.3 mg/0.3 4-26 0.3 ML IN ity of mL 00:00: THE MUSCLE [place] injection 00 1 TIME NOW Medi lula FOR 1 DOSE Branch budesonide- 2021-0 Yes [id number] 2{puff} Inhale 2 [facility] formoteroL 4-26 Puffs 2 ity of (SYMBICORT) 00:00: (two) [place] 160-4.5 00 times Medical mcg/actuati daily. Branch on inhaler EPINEPHrine 2022-0 Yes ADMINISTER [facility] 0.3 mg/0.3 4-26 0.3 ML IN ity of mL 00:00: THE MUSCLE [place] injection 00 1 TIME NOW Medi [facility] FOR 1 DOSE Branch fluticasone 3- No [id number] 1{spray Use 1 [facility] propionate 4-26 04-21 } [place] in ity of 50 00:00: 00:00 each [place] mcg/actuati 00 :00 nostril 2 Med ical on nasal (two) Branch spray times daily. buprenorphi Yes APPLY 1 Uni vers ne 20 4-19 PATCH ON ity of mcg/hour 00:00: THE SKIN [place] PTWK 00 EVERY Medical WEEK. Branch buprenorphi Yes APPLY 1 [facility] vers ne 20 4-19 PATCH ON ity of mcg/hour 00:00: THE SKIN [place] PTWK 00 EVERY Medical WEEK. Branch buprenorphi Yes APPLY 1 Uni vers ne 20 4-19 PATCH ON ity of mcg/hour 00:00: THE SKIN [place] PTWK 00 EVERY Medical WEEK. Branch buprenorphi Yes APPLY 1 Uni vers ne 20 4-19 PATCH ON ity of mcg/hour 00:00: THE SKIN [place] PTWK 00 EVERY Medical WEEK. Branch buprenorphi Yes APPLY 1 [facility] vers ne 20 4-19 PATCH ON ity of mcg/hour 00:00: THE SKIN [place] PTWK 00 EVERY Medical WEEK. Branch buprenorphi Yes APPLY 1 [facility] vers ne 20 4-19 PATCH ON ity of mcg/hour 00:00: THE SKIN [place] PTWK 00 EVERY Medical WEEK. Branch buprenorphi Yes APPLY 1 Uni vers ne 20 4-19 PATCH ON ity of mcg/hour 00:00: THE SKIN [place] PTWK 00 EVERY Medical WEEK. Branch buprenorphi 0 Yes APPLY 1 Uni vers ne 20 4-19 PATCH ON ity of mcg/hour 00:00: THE SKIN [place] PTWK 00 EVERY Medical WEEK. Branch buprenorphi Yes APPLY 1 Uni vers ne [...] 6 Medical HOURS Branch NEEDED losartan 25 2021-0 Yes 25mg Take 25 mg Univers mg tablet 4-11 by mouth ity of 13:05: daily. [place] [address] Medical Branch losartan 25 2021-0 Yes 25mg Take 25 mg Univers mg tablet 4-11 by mouth ity of 13:05: daily. [place] [address] Medical Branch losartan 25 2021-0 Yes 25mg Take 25 mg Univers mg tablet 4-11 by mouth ity of 13:05: daily. [address] Branch losartan 25 2021-0 Yes 25mg Take 25 mg Univers mg tablet 4-11 by mouth ity of 13:05: daily. [address] losartan 25 Yes 25mg Take 25 mg Univers mg tablet 4-11 by mouth ity of 13:05: daily. [address] losartan 25 Yes 25mg Take 25 mg Univers mg tablet 4-11 by mouth ity of 13:05: daily. [address] losartan 25 Yes 25mg Take 25 mg Univers mg tablet 4-11 by mouth ity of 13:05: daily. [address] losartan 25 Yes 25mg Take 25 mg Univers mg tablet 4-11 by mouth ity of 13:05: daily. [address] losartan 25 Yes 25mg Take 25 mg Univers mg tablet 4-11 by mouth ity of 13:05: daily. [address] losartan 25 Yes 25mg Take 25 mg Univers mg tablet 4-11 by mouth ity of 13:05: daily. [address] losartan 25 Yes 25mg Take 25 mg Univers mg tablet 4-11 by mouth ity of 13:05: daily. [address] losartan Yes 25mg Take 25 mg Univers mg tablet 4-11 by mouth ity of 13:05: daily. [address] losartan 25 Yes 25mg Take 25 mg Univers mg tablet 4-11 by mouth ity of 13:05: daily. [address] losartan 25 Yes 25mg Take 25 mg Univers mg tablet 4-11 by mouth ity of 13:05: daily. [address] losartan 25 Yes 25mg Take 25 mg Univers mg tablet 4-11 by mouth ity of 13:05: daily. [address] losartan 25 0 Yes 25mg Take 25 mg Univers mg tablet 4-11 by mouth ity of 13:05: daily. [address] losartan 25 0 Yes 25mg Take 25 mg Univers mg tablet 4-11 by mouth ity of 13:05: daily. [address] losartan 25 Yes 25mg Take 25 mg Univers mg tablet 4-11 by mouth ity of 13:05: daily. [address] losartan 25 0 Yes 25mg Take 25 mg Univers mg tablet 4-11 by mouth ity of 13:05: daily. [place] [address] Medical Branch losartan 25 2021-0 Yes 25mg Take 25 mg Univers mg tablet 4-11 by mouth ity of 13:05: daily. [place] [facility] Medical Branch losartan 25 2021-0 Yes 25mg Take 25 mg Univers mg tablet 4-11 by mouth ity of 13:05: daily. [place] [address] Medical Branch ACCU-CHEK 2022-0 Yes Univers SOFTCLIX 4-07 ity of LANCETS 00:00: [place] [address] Medical Branch ACCU-CHEK 2022-0 Yes Univers SOFTCLIX 4-07 ity of LANCETS 00:00: [place] [address] Medical Branch ACCU-CHEK 2022-0 Yes Univers SOFTCLIX 4-07 ity of LANCETS 00:00: [place] [address] Medical Branch ACCU-CHEK 2022-0 Yes Univers SOFTCLIX 4-07 ity of LANCETS 00:00: [place] [address] Medical Branch ACCU-CHEK 2022-0 Yes Univers SOFTCLIX 4-07 ity of LANCETS 00:00: [place] [address] Medical Branch ACCU-CHEK 2022-0 Yes Univers SOFTCLIX 4-07 ity of LANCETS 00:00: [place] [address] Medical Branch ACCU-CHEK 2022-0 Yes Univers SOFTCLIX 4-07 ity of LANCETS 00:00: [place] [address] Medical Branch ACCU-CHEK 2022-0 Yes Univers SOFTCLIX 4-07 ity of LANCETS 00:00: [place] [address] Medical Branch ACCU-CHEK 2022-0 Yes Univers SOFTCLIX 4-07 ity of LANCETS 00:00: [place] [address] Medical Branch ACCU-CHEK 2022-0 Yes Univers SOFTCLIX 4-07 ity of LANCETS 00:00: [place] [address] Medical Branch ACCU-CHEK 2022-0 Yes Univers SOFTCLIX 4-07 ity of LANCETS 00:00: [place] [address] Medical Branch ACCU-CHEK 2022-0 Yes Univers SOFTCLIX 4-07 ity of LANCETS 00:00: [place] [address] Medical Branch ACCU-CHEK 2022-0 Yes Univers SOFTCLIX 4-07 ity of LANCETS 00:00: [place] [address] Medical Branch ACCU-CHEK 2022-0 Yes Univers SOFTCLIX 4-07 ity of LANCETS 00:00: [facility] 00 Medical Branch ACCU-CHEK 2022-0 Yes Univers SOFTCLIX 4-07 ity of LANCETS 00:00: [facility] 00 Medical Branch ACCU-CHEK 2022-0 Yes Univers SOFTCLIX 4-07 ity of LANCETS 00:00: [facility] 00 Medical Branch ACCU-CHEK 2022-0 Yes Univers SOFTCLIX 4-07 ity of LANCETS 00:00: [facility] 00 Medical Branch ACCU-CHEK 2022-0 Yes Univers SOFTCLIX 4-07 ity of LANCETS 00:00: [facility] 00 Medical Branch ACCU-CHEK 2022-0 Yes Univers SOFTCLIX 4-07 ity of LANCETS 00:00: [place] [address] Medical Branch ACCU-CHEK 2022-0 Yes Univers SOFTCLIX 4-07 ity of LANCETS 00:00: [place] [address] Medical Branch ACCU-CHEK 2022-0 Yes Univers SOFTCLIX 4-07 ity of LANCETS 00:00: [facility] 00 Medical Branch ACCU-CHEK 2022-0 Yes Univers SOFTCLIX 4-07 ity of LANCETS 00:00: [place] [address] Medical Branch ACCU-CHEK 2022-0 Yes Univers SOFTCLIX 4-07 ity of LANCETS 00:00: [facility] 00 Medical Branch ACCU-CHEK 2022-0 Yes Univers SOFTCLIX 4-07 ity of LANCETS 00:00: [facility] 00 Medical Branch ACCU-CHEK 2022-0 Yes Univers SOFTCLIX 4-07 ity of LANCETS 00:00: [facility] 00 Medical Branch ACCU-CHEK 2022-0 Yes Univers SOFTCLIX 4-07 ity of LANCETS 00:00: [facility] 00 Medical Branch ACCU-CHEK 2022-0 Yes Univers SOFTCLIX 4-07 ity of LANCETS 00:00: [facility] 00 Medical Branch ACCU-CHEK 2022-0 Yes Univers SOFTCLIX 4-07 ity of LANCETS 00:00: [facility] 00 Medical Branch ACCU-CHEK 2022-0 Yes Univers SOFTCLIX 4-07 ity of LANCETS 00:00: [facility] 00 Medical Branch ACCU-CHEK 2022-0 Yes Univers SOFTCLIX 4-07 ity of LANCETS 00:00: [facility] 00 Medical Branch ACCU-CHEK 2022-0 Yes Univers SOFTCLIX 4-07 ity of LANCETS 00:00: [facility] 00 Medical Branch ACCU-CHEK 2022-0 Yes Univers SOFTCLIX 4-07 ity of LANCETS 00:00: [facility] 00 Medical Branch ACCU-CHEK 2022-0 Yes Univers SOFTCLIX 4-07 ity of LANCETS 00:00: [facility] 00 Medical Branch ACCU-CHEK 2022-0 Yes Univers SOFTCLIX 4-07 ity of LANCETS 00:00: [facility] 00 Medical Branch ACCU-CHEK 2022-0 Yes Univers SOFTCLIX 4-07 ity of LANCETS 00:00: [facility] 00 Medical Branch ACCU-CHEK 2022-0 Yes Univers SOFTCLIX 4-07 ity of LANCETS 00:00: [facility] 00 Medical Branch ACCU-CHEK 2022-0 Yes Univers SOFTCLIX 4-07 ity of LANCETS 00:00: [facility] 00 Medical Branch ACCU-CHEK 2022-0 Yes Univers SOFTCLIX 4-07 ity of LANCETS 00:00: [facility] 00 Medical Branch ACCU-CHEK 2022-0 Yes Univers SOFTCLIX 4-07 ity of LANCETS 00:00: [facility] 00 Medical Branch ACCU-CHEK 2022-0 Yes Univers SOFTCLIX 4-07 ity of LANCETS 00:00: [facility] 00 Medical Branch ACCU-CHEK 2022-0 Yes Univers SOFTCLIX 4-07 ity of LANCETS 00:00: [facility] 00 Medical Branch ACCU-CHEK 2022-0 Yes Univers SOFTCLIX 4-07 ity of LANCETS 00:00: [facility] 00 Medical Branch ACCU-CHEK 2022-0 Yes Univers SOFTCLIX 4-07 ity of LANCETS 00:00: [facility] 00 Medical Branch ACCU-CHEK 2022-0 Yes Univers SOFTCLIX 4-07 ity of LANCETS 00:00: [facility] 00 Medical Branch ACCU-CHEK 2022-0 Yes Univers SOFTCLIX 4-07 ity of LANCETS 00:00: [facility] 00 Medical Branch ACCU-CHEK 2022-0 Yes Univers SOFTCLIX 4-07 ity of LANCETS 00:00: [facility] 00 Medical Branch ACCU-CHEK 2022-0 Yes Univers SOFTCLIX 4-07 ity of LANCETS 00:00: [facility] 00 Medical Branch ACCU-CHEK 2022-0 Yes Univers SOFTCLIX 4-07 ity of LANCETS 00:00: [facility] 00 Medical Branch ACCU-CHEK 2022-0 Yes Univers SOFTCLIX 4-07 ity of LANCETS 00:00: [facility] 00 Medical Branch ACCU-CHEK 2022-0 Yes Univers SOFTCLIX 4-07 ity of LANCETS 00:00: [facility] 00 Medical Branch ACCU-CHEK 2022-0 Yes Univers SOFTCLIX 4-07 ity of LANCETS 00:00: [facility] 00 Medical Branch ACCU-CHEK 2022-0 Yes Univers SOFTCLIX 4-07 ity of LANCETS 00:00: [facility] 00 Medical Branch ACCU-CHEK 2022-0 Yes Univers SOFTCLIX 4-07 ity of LANCETS 00:00: [facility] 00 Medical Branch ACCU-CHEK 2022-0 Yes Univers SOFTCLIX 4-07 ity of LANCETS 00:00: [facility] 00 Medical Branch ACCU-CHEK 2022-0 Yes Univers SOFTCLIX 4-07 ity of LANCETS 00:00: [facility] 00 Medical Branch ACCU-CHEK 2022-0 Yes Univers SOFTCLIX 4-07 ity of LANCETS 00:00: [facility] 00 Medical Branch ACCU-CHEK 2022-0 Yes Univers SOFTCLIX 4-07 ity of LANCETS 00:00: [facility] 00 Medical Branch ACCU-CHEK 2022-0 Yes Univers SOFTCLIX 4-07 ity of LANCETS 00:00: [facility] 00 Medical Branch ACCU-CHEK 2022-0 Yes Univers SOFTCLIX 4-07 ity of LANCETS 00:00: [facility] 00 Medical Branch ACCU-CHEK 2022-0 Yes Univers SOFTCLIX 4-07 ity of LANCETS 00:00: [facility] 00 Medical Branch ACCU-CHEK 2022-0 Yes Univers SOFTCLIX 4-07 ity of LANCETS 00:00: [place] [facility] 00 Medical Branch ACCU-CHEK 2021-0 Yes Univers SOFTCLIX 4-07 ity of LANCETS 00:00: [place] [facility] 00 Medical Branch blood sugar 2021-0 Yes [id number] Use as Univers diagnostic 4-02 directed ity o f (ACCU-CHEK 00:00: [place] SMARTVIEW 00 Medical TEST STRIP) Branch strip blood sugar 2021-0 Yes [id number] Use as Univers diagnostic 4-02 directed ity o f (ACCU-CHEK 00:00: [place] SMARTVIEW 00 Medical TEST STRIP) Branch strip blood sugar 2021-0 Yes [id number] Use as Univers diagnostic 4-02 directed ity o f (ACCU-CHEK 00:00: [place] SMARTVIEW 00 Medical TEST STRIP) Branch strip blood sugar 2021-0 Yes [id number] Use as Univers diagnostic 4-02 directed ity o f (ACCU-CHEK 00:00: [place] SMARTVIEW 00 Medical TEST STRIP) Branch strip blood sugar 2021-0 Yes [id number] Use as Univers diagnostic 4-02 directed ity o f (ACCU-CHEK 00:00: [place] SMARTVIEW 00 Medical TEST STRIP) Branch strip blood sugar 2021-0 Yes [id number] Use as [facility] diagnostic 4-02 directed ity o f (ACCU-CHEK 00:00: [place] SMARTVIEW 00 Medical TEST STRIP) Branch strip blood sugar 2021-0 Yes [id number] Use as [facility] diagnostic 4-02 directed ity o f (ACCU-CHEK 00:00: [place] SMARTVIEW 00 Medical TEST STRIP) Branch strip blood sugar 2021-0 Yes [id number] Use as [facility] diagnostic 4-02 directed ity o f (ACCU-CHEK 00:00: [place] SMARTVIEW 00 Medical TEST STRIP) Branch strip blood sugar 2021-0 Yes [id number] Use as [facility] diagnostic 4-02 directed ity o f (ACCU-CHEK 00:00: [place] SMARTVIEW 00 Medical TEST STRIP) Branch strip blood sugar 2021-0 Yes [id number] Use as [facility] diagnostic 4-02 directed ity o f (ACCU-CHEK 00:00: [place] SMARTVIEW 00 Medical TEST STRIP) Branch strip blood sugar 2021-0 Yes [id number] Use as [facility] diagnostic 4-02 directed ity o f (ACCU-CHEK 00:00: [place] SMARTVIEW 00 Medical TEST STRIP) Branch strip blood sugar 2022-0 Yes [id number] Use as [facility] diagnostic 4-02 directed ity o f (ACCU-CHEK 00:00: [place] SMARTVIEW 00 Medical TEST STRIP) Branch strip blood sugar 2022-0 Yes [id number] Use as [facility] diagnostic 4- directed ity o f (ACCU-CHEK 00:00: [place] SMARTVIEW 00 Medical TEST STRIP) Branch strip blood sugar 2022-0 Yes [id number] Use as [facility] diagnostic 4- directed ity o f (ACCU-CHEK 00:00: [place] SMARTVIEW 00 Medical TEST STRIP) Branch strip blood sugar 2021-0 Yes [id number] Use as [facility] diagnostic 4- directed ity o f (ACCU-CHEK 00:00: [place] SMARTVIEW 00 Medical TEST STRIP) Branch strip blood sugar 2-0 Yes [id number] Use as [facility] diagnostic 4- directed ity o f (ACCU-CHEK 00:00: [place] SMARTVIEW 00 Medical TEST STRIP) Branch strip blood sugar 2-0 Yes [id number] Use as [facility] diagnostic 4- directed ity o f (ACCU-CHEK 00:00: [place] SMARTVIEW 00 Medical TEST STRIP) Branch strip blood sugar 2-0 Yes [id number] Use as [facility] diagnostic 4- directed ity o f (ACCU-CHEK 00:00: [place] SMARTVIEW 00 Medical TEST STRIP) Branch strip blood sugar 2022-0 Yes [id number] Use as [facility] diagnostic 4- directed ity o f (ACCU-CHEK 00:00: [place] SMARTVIEW 00 Medical TEST STRIP) Branch strip blood sugar 2022-0 Yes [id number] Use as [facility] diagnostic 4-02 directed ity o f (ACCU-CHEK 00:00: [place] SMARTVIEW 00 Medical TEST STRIP) Branch strip blood sugar 2022-0 Yes [id number] Use as [facility] diagnostic 4-02 directed ity o f (ACCU-CHEK 00:00: [place] SMARTVIEW 00 Medical TEST STRIP) Branch strip blood sugar 2022-0 Yes [id number] Use as [facility] diagnostic 4-02 directed ity o f (ACCU-CHEK 00:00: [place] SMARTVIEW 00 Medical TEST STRIP) Branch strip blood sugar 2021-0 Yes [id number] Use as [facility] diagnostic 4-02 directed ity o f (ACCU-CHEK 00:00: [place] SMARTVIEW 00 Medical TEST STRIP) Branch strip blood sugar 2021-0 Yes [id number] Use as [facility] diagnostic 4-02 directed ity o f (ACCU-CHEK 00:00: [place] SMARTVIEW 00 Medical TEST STRIP) Branch strip blood sugar 2021-0 Yes [id number] Use as [facility] diagnostic 4- directed ity o f (ACCU-CHEK 00:00: [place] SMARTVIEW 00 Medical TEST STRIP) Branch strip blood sugar 2021-0 Yes [id number] Use as [facility] diagnostic 4- directed ity o f (ACCU-CHEK 00:00: [place] SMARTVIEW 00 Medical TEST STRIP) Branch strip blood sugar 2021-0 Yes [id number] Use as [facility] diagnostic 4- directed ity o f (ACCU-CHEK 00:00: [place] SMARTVIEW 00 Medical TEST STRIP) Branch strip blood sugar 2021-0 Yes [id number] Use as [facility] diagnostic 4- directed ity o f (ACCU-CHEK 00:00: [place] SMARTVIEW 00 Medical TEST STRIP) Branch strip blood sugar 2021-0 Yes [id number] Use as [facility] diagnostic 4- directed ity o f (ACCU-CHEK 00:00: [place] SMARTVIEW 00 Medical TEST STRIP) Branch strip blood sugar 2021-0 Yes [id number] Use as [facility] diagnostic 4- directed ity o f (ACCU-CHEK 00:00: [place] SMARTVIEW 00 Medical TEST STRIP) Branch strip blood sugar 2021-0 Yes [id number] Use as [facility] diagnostic 4-02 directed ity o f (ACCU-CHEK 00:00: [place] SMARTVIEW 00 Medical TEST STRIP) Branch strip blood sugar 2-0 Yes [id number] Use as [facility] diagnostic 4-02 directed ity o f (ACCU-CHEK 00:00: [place] SMARTVIEW 00 Medical TEST STRIP) Branch strip blood sugar 2022-0 Yes [id number] Use as [facility] diagnostic 4-02 directed ity o f (ACCU-CHEK 00:00: [place] SMARTVIEW 00 Medical TEST STRIP) Branch strip blood sugar 2022-0 Yes [id number] Use as [facility] diagnostic 4-02 directed ity o f (ACCU-CHEK 00:00: [place] SMARTVIEW 00 Medical TEST STRIP) Branch strip blood sugar 2-0 Yes [id number] Use as [facility] diagnostic 4-02 directed ity o f (ACCU-CHEK 00:00: [place] SMARTVIEW 00 Medical TEST STRIP) Branch strip blood sugar 2022-0 Yes [id number] Use as [facility] diagnostic 4-02 directed ity o f (ACCU-CHEK 00:00: [place] SMARTVIEW 00 Medical TEST STRIP) Branch strip blood sugar 2022-0 Yes [id number] Use as [facility] diagnostic 4-02 directed ity o f (ACCU-CHEK 00:00: [place] SMARTVIEW 00 Medical TEST STRIP) Branch strip blood sugar 2-0 Yes [id number] Use as [facility] diagnostic 4- directed ity o f (ACCU-CHEK 00:00: [place] SMARTVIEW 00 Medical TEST STRIP) Branch strip blood sugar 2-0 Yes [id number] Use as [facility] diagnostic 4- directed ity o f (ACCU-CHEK 00:00: [place] SMARTVIEW 00 Medical TEST STRIP) Branch strip blood sugar 2022-0 Yes [id number] Use as [facility] diagnostic 4-02 directed ity o f (ACCU-CHEK 00:00: [place] SMARTVIEW 00 Medical TEST STRIP) Branch strip blood sugar 2-0 Yes [id number] Use as [facility] diagnostic 4-02 directed ity o f (ACCU-CHEK 00:00: [place] SMARTVIEW 00 Medical TEST STRIP) Branch strip blood sugar 2022-0 Yes [id number] Use as [facility] diagnostic 4-02 directed ity o f (ACCU-CHEK 00:00: [place] SMARTVIEW 00 Medical TEST STRIP) Branch strip blood sugar 2022-0 Yes [id number] Use as [facility] diagnostic 4-02 directed ity o f (ACCU-CHEK 00:00: [place] SMARTVIEW 00 Medical TEST STRIP) Branch strip blood sugar 2022-0 Yes [id number] Use as [facility] diagnostic 4-02 directed ity o f (ACCU-CHEK 00:00: [place] SMARTVIEW 00 Medical TEST STRIP) Branch strip blood sugar 2022-0 Yes [id number] Use as [facility] diagnostic 4-02 directed ity o f (ACCU-CHEK 00:00: [place] SMARTVIEW 00 Medical TEST STRIP) Branch strip blood sugar 2022-0 Yes [id number] Use as [facility] diagnostic 4-02 directed ity o f (ACCU-CHEK 00:00: [place] SMARTVIEW 00 Medical TEST STRIP) Branch strip blood sugar 2021-0 Yes [id number] Use as [facility] diagnostic 4-02 directed ity o f (ACCU-CHEK 00:00: [place] SMARTVIEW 00 Medical TEST STRIP) Branch strip blood sugar 2021-0 Yes [id number] Use as [facility] diagnostic 4- directed ity o f (ACCU-CHEK 00:00: [place] SMARTVIEW 00 Medical TEST STRIP) Branch strip blood sugar 2021-0 Yes [id number] Use as [facility] diagnostic 4- directed ity o f (ACCU-CHEK 00:00: [place] SMARTVIEW 00 Medical TEST STRIP) Branch strip blood sugar 2021-0 Yes [id number] Use as [facility] diagnostic 4- directed ity o f (ACCU-CHEK 00:00: [place] SMARTVIEW 00 Medical TEST STRIP) Branch strip blood sugar 2021-0 Yes [id number] Use as [facility] diagnostic 4- directed ity o f (ACCU-CHEK 00:00: [place] SMARTVIEW 00 Medical TEST STRIP) Branch strip blood sugar 2021-0 Yes [id number] Use as [facility] diagnostic 4- directed ity o f (ACCU-CHEK 00:00: [place] SMARTVIEW 00 Medical TEST STRIP) Branch strip blood sugar 2021-0 Yes [id number] Use as [facility] diagnostic 4- directed ity o f (ACCU-CHEK 00:00: [place] SMARTVIEW 00 Medical TEST STRIP) Branch strip blood sugar 2021-0 Yes [id number] Use as [facility] diagnostic 4- directed ity o f (ACCU-CHEK 00:00: [place] SMARTVIEW 00 Medical TEST STRIP) Branch strip blood sugar 2-0 Yes [id number] Use as [facility] diagnostic 4-02 directed ity o f (ACCU-CHEK 00:00: [place] SMARTVIEW 00 Medical TEST STRIP) Branch strip blood sugar 2-0 Yes [id number] Use as [facility] diagnostic 4-02 directed ity o f (ACCU-CHEK 00:00: [place] SMARTVIEW 00 Medical TEST STRIP) Branch strip blood sugar 2-0 Yes [id number] Use as [facility] diagnostic 4-02 directed ity o f (ACCU-CHEK 00:00: [place] SMARTVIEW 00 Medical TEST STRIP) Branch strip blood sugar 0 Yes [id number] Use as [facility] diagnostic 4-02 directed ity o f (ACCU-CHEK 00:00: [place] SMARTVIEW 00 Medical TEST STRIP) Branch strip blood sugar 2021-0 Yes [id number] Use as [facility] diagnostic 4- directed ity o f (ACCU-CHEK 00:00: [place] SMARTVIEW 00 Medical TEST STRIP) Branch strip blood sugar 2021-0 Yes [id number] Use as [facility] diagnostic 4- directed ity o f (ACCU-CHEK 00:00: [place] SMARTVIEW 00 Medical TEST STRIP) Branch strip blood sugar 2021- Yes [id number] Use as [facility] diagnostic 4- directed ity o f (ACCU-CHEK 00:00: [place] SMARTVIEW 00 Medical TEST STRIP) Branch strip blood sugar 2021- Yes [id number] Use as [facility] diagnostic 4- directed ity o f (ACCU-CHEK 00:00: [place] [facility] TEST STR[facility]) Branch strip rosuvastati Yes [id number] 5mg Take 1 [facility] n 5 mg 3-23 tablet by ity of tablet 00:00: mouth [place] 00 daily. Medical Branch rosuvastati Yes [id number] 5mg Take 1 [facility] n 5 mg 3-23 tablet by ity of tablet 00:00: mouth [place] 00 daily. Medical Branch rosuvastati Yes [id number] 5mg Take 1 [facility] n 5 mg 3-23 tablet by ity of tablet 00:00: mouth [place] 00 daily. Medical Branch rosuvastati Yes [id number] 5mg Take 1 [facility] n 5 mg 3-23 tablet by ity of tablet 00:00: mouth [place] 00 daily. Medical Branch rosuvastati 2021-0 Yes [id number] 5mg Take 1 [facility] n 5 mg 3-23 tablet by ity of tablet 00:00: mouth [place] 00 daily. Medical Branch rosuvastati 2021-0 Yes [id number] 5mg Take 1 [facility] n 5 mg 3-23 tablet by ity of tablet 00:00: mouth [place] 00 daily. Medical Branch rosuvastati 2021-0 Yes [id number] 5mg Take 1 [facility] n 5 mg 3-23 tablet by ity of tablet 00:00: mouth [place] 00 daily. Medical Branch rosuvastati Yes [id number] 5mg Take 1 [facility] n 5 mg 3-23 tablet by ity of tablet 00:00: mouth [place] 00 daily. [facility] Branch rosuvastati Yes [id number] 5mg Take 1 [facility] n 5 mg 3-23 tablet by ity of tablet 00:00: mouth [place] 00 daily. [facility] rosuvastati Yes [id number] 5mg Take 1 [facility] n 5 mg 3-23 tablet by ity of tablet 00:00: mouth [place] 00 daily. [facility] Branch rosuvastati Yes [id number] 5mg Take 1 [facility] n 5 mg 3-23 tablet by ity of tablet 00:00: mouth [place] 00 daily. [facility] rosuvastati Yes [id number] 5mg Take 1 [facility] n 5 mg 3-23 tablet by ity of tablet 00:00: mouth [place] 00 daily. [facility] rosuvastati Yes [id number] 5mg Take 1 [facility] n 5 mg 3-23 tablet by ity of tablet 00:00: mouth [place] 00 daily. [facility] rosuvastati Yes [id number] 5mg Take 1 [facility] n 5 mg 3-23 tablet by ity of tablet 00:00: mouth [place] 00 daily. [facility] rosuvastati Yes [id number] 5mg Take 1 [facility] n 5 mg 3-23 tablet by ity of tablet 00:00: mouth [place] 00 daily. [facility] Branch rosuvastati Yes [id number] 5mg Take 1 [facility] n 5 mg 3-23 tablet by ity of tablet 00:00: mouth [place] 00 daily. [facility] rosuvastati Yes [id number] 5mg Take 1 [facility] n 5 mg 3-23 tablet by ity of tablet 00:00: mouth [place] 00 daily. [facility] Branch rosuvastati Yes [id number] 5mg Take 1 [facility] n 5 mg 3-23 tablet by ity of tablet 00:00: mouth [place] 00 daily. [facility] rosuvastati Yes [id number] 5mg Take 1 [facility] n 5 mg 3-23 tablet by ity of tablet 00:00: mouth [place] 00 daily. [facility] rosuvastati Yes [id number] 5mg Take 1 [facility] n 5 mg 3-23 tablet by ity of tablet 00:00: mouth [place] 00 daily. [facility] Branch rosuvastati Yes [id number] 5mg Take 1 [facility] n 5 mg 3-23 tablet by ity of tablet 00:00: mouth [place] 00 daily. [facility] Branch rosuvastati Yes [id number] 5mg Take 1 [facility] n 5 mg 3-23 tablet by ity of tablet 00:00: mouth [place] 00 daily. [facility] rosuvastati Yes [id number] 5mg Take 1 [facility] n 5 mg 3-23 tablet by ity of tablet 00:00: mouth [place] 00 daily. [facility] Branch rosuvastati Yes [id number] 5mg Take 1 [facility] n 5 mg 3-23 tablet by ity of tablet 00:00: mouth [place] 00 daily. [facility] Branch rosuvastati Yes [id number] 5mg Take 1 [facility] n 5 mg 3-23 tablet by ity of tablet 00:00: mouth [place] 00 daily. [facility] Branch rosuvastati Yes [id number] 5mg Take 1 [facility] n 5 mg 3-23 tablet by ity of tablet 00:00: mouth [place] 00 daily. [facility] Branch rosuvastati Yes [id number] 5mg Take 1 [facility] n 5 mg 3-23 tablet by ity of tablet 00:00: mouth [place] 00 daily. [facility] Branch rosuvastati Yes [id number] 5mg Take 1 [facility] n 5 mg 3-23 tablet by ity of tablet 00:00: mouth [place] 00 daily. [facility] rosuvastati Yes [id number] 5mg Take 1 [facility] n 5 mg 3-23 tablet by ity of tablet 00:00: mouth [place] 00 daily. [facility] rosuvastati Yes [id number] 5mg Take 1 [facility] n 5 mg 3-23 tablet by ity of tablet 00:00: mouth [place] 00 daily. [facility] rosuvastati Yes [id number] 5mg Take 1 [facility] n 5 mg 3-23 tablet by ity of tablet 00:00: mouth [place] 00 daily. [facility] Branch rosuvastati Yes [id number] 5mg Take 1 [facility] n 5 mg 3-23 tablet by ity of tablet 00:00: mouth [place] 00 daily. [facility] rosuvastati Yes [id number] 5mg Take 1 [facility] n 5 mg 3-23 tablet by ity of tablet 00:00: mouth [place] 00 daily. [facility] Branch rosuvastati Yes [id number] 5mg Take 1 [facility] n 5 mg 3-23 tablet by ity of tablet 00:00: mouth [place] 00 daily. [facility] rosuvastati Yes [id number] 5mg Take 1 [facility] n 5 mg 3-23 tablet by ity of tablet 00:00: mouth [place] 00 daily. [facility] Branch rosuvastati Yes [id number] 5mg Take 1 [facility] n 5 mg 3-23 tablet by ity of tablet 00:00: mouth [place] 00 daily. [facility] rosuvastati Yes [id number] 5mg Take 1 [facility] n 5 mg 3-23 tablet by ity of tablet 00:00: mouth [place] 00 daily. [facility] rosuvastati Yes [id number] 5mg Take 1 [facility] n 5 mg 3-23 tablet by ity of tablet 00:00: mouth [place] 00 daily. [facility] rosuvastati Yes [id number] 5mg Take 1 [facility] n 5 mg 3-23 tablet by ity of tablet 00:00: mouth [place] 00 daily. [facility] rosuvastati Yes [id number] 5mg Take 1 [facility] n 5 mg 3-23 tablet by ity of tablet 00:00: mouth [place] 00 daily. [facility] Branch rosuvastati Yes [id number] 5mg Take 1 [facility] n 5 mg 3-23 tablet by ity of tablet 00:00: mouth [place] 00 daily. [facility] rosuvastati Yes [id number] 5mg Take 1 [facility] n 5 mg 3-23 tablet by ity of tablet 00:00: mouth [place] 00 daily. [facility] Branch rosuvastati Yes [id number] 5mg Take 1 [facility] n 5 mg 3-23 tablet by ity of tablet 00:00: mouth [place] 00 daily. [facility] rosuvastati Yes [id number] 5mg Take 1 [facility] n 5 mg 3-23 tablet by ity of tablet 00:00: mouth [place] 00 daily. [facility] rosuvastati Yes [id number] 5mg Take 1 [facility] n 5 mg 3-23 tablet by ity of tablet 00:00: mouth [place] 00 daily. [facility] Branch rosuvastati Yes [id number] 5mg Take 1 [facility] n 5 mg 3-23 tablet by ity of tablet 00:00: mouth [place] 00 daily. [facility] rosuvastati Yes [id number] 5mg Take 1 [facility] n 5 mg 3-23 tablet by ity of tablet 00:00: mouth [place] 00 daily. [facility] rosuvastati Yes [id number] 5mg Take 1 [facility] n 5 mg 3-23 tablet by ity of tablet 00:00: mouth [place] 00 daily. [facility] rosuvastati Yes [id number] 5mg Take 1 [facility] n 5 mg 3-23 tablet by ity of tablet 00:00: mouth [place] 00 daily. [facility] rosuvastati Yes [id number] 5mg Take 1 [facility] n 5 mg 3-23 tablet by ity of tablet 00:00: mouth [place] 00 daily. [facility] rosuvastati Yes [id number] 5mg Take 1 [facility] n 5 mg 3-23 tablet by ity of tablet 00:00: mouth [place] 00 daily. [facility] rosuvastati Yes [id number] 5mg Take 1 [facility] n 5 mg 3-23 tablet by ity of tablet 00:00: mouth [place] 00 daily. [facility] rosuvastati Yes [id number] 5mg Take 1 [facility] n 5 mg 3-23 tablet by ity of tablet 00:00: mouth [place] 00 daily. [facility] rosuvastati Yes [id number] 5mg Take 1 [facility] n 5 mg 3-23 tablet by ity of tablet 00:00: mouth [place] 00 daily. [facility] rosuvastati Yes [id number] 5mg Take 1 [facility] n 5 mg 3-23 tablet by ity of tablet 00:00: mouth [place] 00 daily. [facility] rosuvastati Yes [id number] 5mg Take 1 [facility] n 5 mg 3-23 tablet by ity of tablet 00:00: mouth [place] 00 daily. [facility] rosuvastati Yes [id number] 5mg Take 1 [facility] n 5 mg 3-23 tablet by ity of tablet 00:00: mouth [place] 00 daily. [facility] rosuvastati 2-0 Yes [id number] 5mg Take 1 [facility] n 5 mg 3-23 tablet by ity of tablet 00:00: mouth [place] 00 daily. Medical Branch rosuvastati 2021-0 Yes [id number] 5mg Take 1 [facility] n 5 mg 3-23 tablet by ity of tablet 00:00: mouth [place] 00 daily. [facility] Branch rosuvastati 2021-0 Yes [id number] 5mg Take 1 [facility] n 5 mg 3-23 tablet by ity of tablet 00:00: mouth [place] 00 daily. Medical Branch rosuvastati 2021-0 Yes [id number] 5mg Take 1 [facility] n 5 mg 3-23 tablet by ity of tablet 00:00: mouth 00 daily. Medical Branch rosuvastati 2021-0 Yes [id number] 5mg Take 1 [facility] n 5 mg 3-23 tablet by ity of tablet 00:00: mouth 00 daily. Medical Branch pantoprazol 2021-0 Yes 40mg Take 40 mg [facility] e 40 mg EC 3-18 by mouth ity o f tablet 00:00: daily. [place] [facility] ondansetron 2021-0 Yes TAKE 1 Univ ers 4 mg tablet 3-18 TABLET BY ity of 00:00: MOUTH EVERY 12 Medical HOURS Branch NEEDED dicyclomine 2021-0 Yes 20mg Take 20 mg [facility] 20 mg 3-18 by mouth 4 ity of tablet 00:00: (four) [place] 00 times Medical daily. Branch pantoprazol 2021-0 Yes 40mg Take 40 mg [facility] e 40 mg EC 3-18 by mouth ity o f tablet 00:00: daily. [place] [facility] ondansetron 2021-0 Yes TAKE 1 Univ ers 4 mg tablet 3-18 TABLET BY ity of 00:00: MOUTH [place] EVERY 12 Medical HOURS Branch NEEDED dicyclomine 2021-0 Yes 20mg Take 20 mg [facility] 20 mg 3-18 by mouth 4 ity of tablet 00:00: (four) [place] 00 times Medical daily. Branch pantoprazol 2021-0 Yes 40mg Take 40 mg [facility] e 40 mg EC 3-18 by mouth ity o f tablet 00:00: daily. [place] [facility] ondansetron 2021-0 Yes TAKE 1 Univ ers 4 mg tablet 3-18 TABLET BY ity of 00:00: MOUTH [place] EVERY 12 Medical HOURS Branch NEEDED dicyclomine 2022-0 Yes 20mg Take 20 mg [facility] 20 mg 3-18 by mouth 4 ity of tablet 00:00: (four) [place] 00 times Medical daily. Branch pantoprazol 2022-0 Yes 40mg Take 40 mg [facility] e 40 mg EC 3-18 by mouth ity o f tablet 00:00: daily. [place] [facility] ondansetron 2-0 Yes TAKE 1 Univ ers 4 mg tablet 3-18 TABLET BY ity of 00:00: MOUTH [place] EVERY 12 Medical HOURS Branch NEEDED dicyclomine 2-0 Yes 20mg Take 20 mg [facility] 20 mg 3-18 by mouth 4 ity of tablet 00:00: (four) [place] 00 times Medical daily. Branch pantoprazol 2-0 Yes 40mg Take 40 mg [facility] e 40 mg EC 3-18 by mouth ity o f tablet 00:00: daily. [place] [facility] ondansetron 2-0 Yes TAKE 1 Univ ers 4 mg tablet 3-18 TABLET BY ity of 00:00: MOUTH [place] EVERY 12 Medical HOURS Branch NEEDED dicyclomine 2-0 Yes 20mg Take 20 mg [facility] 20 mg 3-18 by mouth 4 ity of tablet 00:00: (four) [place] 00 times Medical daily. Branch pantoprazol 2-0 Yes 40mg Take 40 mg [facility] e 40 mg EC 3-18 by mouth ity o f tablet 00:00: daily. [place] [facility] ondansetron 2-0 Yes TAKE 1 Univ ers 4 mg tablet 3-18 TABLET BY ity of 00:00: MOUTH [place] EVERY 12 Medical HOURS Branch NEEDED dicyclomine 2-0 Yes 20mg Take 20 mg [facility] 20 mg 3-18 by mouth 4 ity of tablet 00:00: (four) [place] 00 times Medical daily. Branch pantoprazol 2022-0 Yes 40mg Take 40 mg [facility] e 40 mg EC 3-18 by mouth ity o f tablet 00:00: daily. [place] [facility] ondansetron 2022-0 Yes TAKE 1 Univ ers 4 mg tablet 3-18 TABLET BY ity of 00:00: MOUTH [place] EVERY 12 Medical HOURS Branch NEEDED dicyclomine 2022-0 Yes 20mg Take 20 mg [facility] 20 mg 3-18 by mouth 4 ity of tablet 00:00: (four) [place] 00 times Medical daily. Branch pantoprazol 2021-0 Yes 40mg Take 40 mg [facility] e 40 mg EC 3-18 by mouth ity o f tablet 00:00: daily. [place] 00 Medical Branch ondansetron 2021-0 Yes TAKE 1 Univ ers 4 mg tablet 3-18 TABLET BY ity of 00:00: MOUTH [place] 00 EVERY 12 Medical HOURS Branch NEEDED dicyclomine 2021-0 Yes 20mg Take 20 mg [facility] 20 mg 3-18 by mouth 4 ity of tablet 00:00: (four) [place] 00 times Medical daily. Branch pantoprazol 2021-0 Yes 40mg Take 40 mg [facility] e 40 mg EC 3-18 by mouth ity o f tablet 00:00: daily. [place] 00 Medical Branch ondansetron 2021-0 Yes TAKE 1 [facility] ers 4 mg tablet 3-18 TABLET BY ity of 00:00: MOUTH [place] 00 EVERY 12 Medical HOURS Branch NEEDED dicyclomine 2021-0 Yes 20mg Take 20 mg [facility] 20 mg 3-18 by mouth 4 ity of tablet 00:00: (four) [place] 00 times Medical daily. Branch pantoprazol 2021-0 Yes 40mg Take 40 mg [facility] e 40 mg EC 3-18 by mouth ity o f tablet 00:00: daily. [place] 00 Medical Branch ondansetron 2021-0 Yes TAKE 1 Univ ers 4 mg tablet 3-18 TABLET BY ity of 00:00: MOUTH [place] 00 EVERY 12 Medical HOURS Branch NEEDED dicyclomine 2021-0 Yes 20mg Take 20 mg [facility] 20 mg 3-18 by mouth 4 ity of tablet 00:00: (four) [place] 00 times Medical daily. Branch pantoprazol 2021-0 2021- No 40mg Take 40 mg [facility] e 40 mg EC 3-18 02-02 by mouth ity of tablet 00:00: 00:00 daily. [place] 00 :00 Medical Branch ondansetron 2021-0 2021- No TAKE 1 Uni vers 4 mg tablet 3-18 02-02 TABLET BY it y of 00:00: 00:00 MOUTH [place] 00 :00 EVERY 12 Medical HOURS Branch NEEDED dicyclomine 2-0 2021- No 20mg Take 20 mg [facility] 20 mg 3-18 02-02 by mouth 4 ity of tablet 00:00: 00:00 (four) [place] 00 :00 times Medical daily. Branch pantoprazol 2021- No 40mg Take 40 mg [facility] e 40 mg EC 07-28 by mouth ity of tablet 00:00: 00:00 daily. [place] 00 :00 Medical Branch ondansetron 2021- No TAKE 1 Uni vers 4 mg tablet 07-28 TABLET BY it y of 00:00: 00:00 MOUTH [place] 00 :00 EVERY 12 Medical HOURS Branch NEEDED dicyclomine 2021- No 20mg Take 20 mg [facility] 20 mg 07-28 by mouth 4 ity of tablet 00:00: 00:00 (four) [place] 00 :00 times Medical daily. Branch montelukast Yes 10mg Take 10 mg [facility] (SINGULAIR) 3-11 by mouth. ity of 10 mg 14:26: [address] montelukast Yes 10mg Take 10 mg Univers (SINGULAIR) 3-11 by mouth. ity of 10 mg 14:26: [address] montelukast Yes 10mg Take 10 mg Univers (SINGULAIR) 3-11 by mouth. ity of 10 mg 14:26: [address] montelukast Yes 10mg Take 10 mg Univers (SINGULAIR) 3-11 by mouth. ity of 10 mg 14:26: [address] metFORMIN 2021- No [id number] 1000mg Take 1 Univers 1,000 mg 07-14 tablet by ity o f tablet 00:00: 00:00 mouth 2 [place] 00 :00 (two) Medical times [place] daily with meals. cyclobenzap Yes TAKE 1 Univ ers rine 10 mg 2-15 TABLET BY ity of tablet 00:00: MOUTH 00 THREE Medical TIMES [place] DAILY NEEDED FOR SPASMS Diclofenac Yes APPLY [...] [place] 00 TWICE Medical DAILY Branch DIRECTED cyclobenzap [...] [place] 00 TWICE Medical DAILY Branch DIRECTED cyclobenzap [...] [place] 00 TWICE Medical DAILY Branch DIRECTED cyclobenzap Yes TAKE 1 Univ ers rine 10 mg 2-15 TABLET BY ity of tablet 00:00: MOUTH [place] 00 THREE Medical TIMES Branch DAILY NEEDED FOR SPASMS Diclofenac 0 Yes APPLY 2 Univ ers Sodium 1 % 2-15 GRAMS ity of gel 00:00: TOPICALLY 00 TO THE Medical AFFECTED Branch AREA FOUR TIMES DAILY DIRECTED pregabalin 0 Yes TAKE 1 Unive rs 200 mg 2-15 CAPSULE BY ity of capsule 00:00: MOUTH [place] 00 TWICE Medical DAILY Branch DIRECTED cyclobenzap [...] [place] 00 TWICE Medical DAILY Branch DIRECTED albuterol 2018-05 Yes [id number] 2{puff} Inhale 2 Univers (PROAIR 2-17 Puffs ity of HFA) 90 00:00: every 6 [place] mcg/actuati 00 (six) Medical on inhaler hours as Branc h needed for Wheezing, Shortness of Breath or Chest tightness. albuterol 2018-05 Yes [id number] 2{puff} Inhale 2 Univers (PROAIR 2-17 Puffs ity of HFA) 90 00:00: every 6 [place] mcg/actuati 00 (six) Medical on inhaler hours as Branc h needed for Wheezing, Shortness of Breath or Chest tightness. albuterol 2018-05 Yes [id number] 2{puff} Inhale 2 Univers (PROAIR 2-17 Puffs ity of HFA) 90 00:00: every 6 [place] mcg/actuati 00 (six) Medical on inhaler hours as Branc h needed for Wheezing, Shortness of Breath or Chest tightness. albuterol 2018-05 Yes [id number] 2{puff} Inhale 2 Univers (PROAIR 2-17 Puffs ity of HFA) 90 00:00: every 6 [place] mcg/actuati 00 (six) Medical on inhaler hours as Branc h needed for Wheezing, Shortness of Breath or Chest tightness. albuterol 2018-05 Yes [id number] 2{puff} Inhale 2 Univers (PROAIR 2-17 Puffs ity of HFA) 90 00:00: every 6 [place] mcg/actuati 00 (six) Medical on inhaler hours as Branc h needed for Wheezing, Shortness of Breath or Chest tightness. albuterol 2018-05 Yes [id number] 2{puff} Inhale 2 [facility] (PROAIR 2-17 Puffs ity of HFA) 90 00:00: every 6 [place] mcg/actuati 00 (six) Medical on inhaler hours as Branc h needed for Wheezing, Shortness of Breath or Chest tightness. albuterol 2018-05 Yes [id number] 2{puff} Inhale 2 [facility] (PROAIR 2-17 Puffs ity of HFA) 90 00:00: every 6 [place] mcg/actuati 00 (six) Medical on inhaler hours as Branc h needed for Wheezing, Shortness of Breath or Chest tightness. albuterol 2018-05 Yes [id number] 2{puff} Inhale 2 [facility] (PROAIR 2-17 Puffs ity of HFA) 90 00:00: every 6 [place] mcg/actuati 00 (six) Medical on inhaler hours as Branc h needed for Wheezing, Shortness of Breath or Chest tightness. albuterol 2018-05 Yes [id number] 2{puff} Inhale 2 [facility] (PROAIR 2-17 Puffs ity of HFA) 90 00:00: every 6 [place] mcg/actuati 00 (six) Medical on inhaler hours as Branc h needed for Wheezing, Shortness of Breath or Chest tightness. albuterol 2018-05 Yes [id number] 2{puff} Inhale 2 [facility] (PROAIR 2-17 Puffs ity of HFA) 90 00:00: every 6 [place] mcg/actuati 00 (six) Medical on inhaler hours as Branc h needed for Wheezing, Shortness of Breath or Chest tightness. albuterol 2018-05 Yes [id number] 2{puff} Inhale 2 [facility] (PROAIR 2-17 Puffs ity of HFA) 90 00:00: every 6 [place] mcg/actuati 00 (six) Medical on inhaler hours as Branc h needed for Wheezing, Shortness of Breath or Chest tightness. albuterol 2018-05 Yes [id number] 2{puff} Inhale 2 [facility] (PROAIR 2-17 Puffs ity of HFA) 90 00:00: every 6 [place] mcg/actuati 00 (six) Medical on inhaler hours as Branc h needed for Wheezing, Shortness of Breath or Chest tightness. albuterol 2018-05 Yes [id number] 2{puff} Inhale 2 [facility] (PROAIR 2-17 Puffs ity of HFA) 90 00:00: every 6 [place] mcg/actuati 00 (six) Medical on inhaler hours as Branc h needed for Wheezing, Shortness of Breath or Chest tightness. albuterol 2018-05 Yes [id number] 2{puff} Inhale 2 [facility] (PROAIR 2-17 Puffs ity of HFA) 90 00:00: every 6 [place] mcg/actuati 00 (six) Medical on inhaler hours as Branc h needed for Wheezing, Shortness of Breath or Chest tightness. albuterol 2018-05 Yes [id number] 2{puff} Inhale 2 [facility] (PROAIR 2-17 Puffs ity of HFA) 90 00:00: every 6 [place] mcg/actuati 00 (six) Medical on inhaler hours as Branc h needed for Wheezing, Shortness of Breath or Chest tightness. albuterol 2018-05 Yes [id number] 2{puff} Inhale 2 [facility] (PROAIR 2-17 Puffs ity of HFA) 90 00:00: every 6 [place] mcg/actuati 00 (six) Medical on inhaler hours as Branc h needed for Wheezing, Shortness of Breath or Chest tightness. albuterol 2018-05 Yes [id number] 2{puff} Inhale 2 [facility] (PROAIR 2-17 Puffs ity of HFA) 90 00:00: every 6 [place] mcg/actuati 00 (six) Medical on inhaler hours as Branc h needed for Wheezing, Shortness of Breath or Chest tightness. albuterol 2018-05 Yes [id number] 2{puff} Inhale 2 [facility] (PROAIR 2-17 Puffs ity of HFA) 90 00:00: every 6 [place] mcg/actuati 00 (six) Medical on inhaler hours as Branc h needed for Wheezing, Shortness of Breath or Chest tightness. albuterol 2018-05 Yes [id number] 2{puff} Inhale 2 [facility] (PROAIR 2-17 Puffs ity of HFA) 90 00:00: every 6 [place] mcg/actuati 00 (six) Medical on inhaler hours as Branc h needed for Wheezing, Shortness of Breath or Chest tightness. albuterol 2018-05 Yes [id number] 2{puff} Inhale 2 [facility] (PROAIR 2-17 Puffs ity of HFA) 90 00:00: every 6 [place] mcg/actuati 00 (six) Medical on inhaler hours as Branc h needed for Wheezing, Shortness of Breath or Chest tightness. albuterol 2018-05- No [id number] 2{puff} Inhale 2 [facility] (PROAIR 2-17 11-22 Puffs ity of HFA) 90 00:00: 00:00 every 6 [place] mcg/actuati 00 :00 (six) Medical on inhaler hours as Branc h needed for Wheezing, Shortness of Breath or Chest tightness. albuterol 2018-05- No [id number] 2{puff} Inhale 2 [facility] (PROAIR 2-17 11-22 Puffs ity of HFA) 90 00:00: 00:00 every 6 [place] mcg/actuati 00 :00 (six) Medical on inhaler hours as Branc h needed for Wheezing, Shortness of Breath or Chest tightness. albuterol 2018-05- No [id number] 2{puff} Inhale 2 [facility] (PROAIR 2-17 11-22 Puffs ity of HFA) 90 00:00: 00:00 every 6 [place] mcg/actuati 00 :00 (six) Medical on inhaler hours as Branc h needed for Wheezing, Shortness of Breath or Chest tightness. albuterol 2018-05- No [id number] 2{puff} Inhale 2 [facility] (PROAIR 2-17 11-22 Puffs ity of HFA) 90 00:00: 00:00 every 6 [place] mcg/actuati 00 :00 (six) Medical on inhaler hours as Branc h needed for Wheezing, Shortness of Breath or Chest tightness. albuterol 2018-05- No [id number] 2{puff} Inhale 2 [facility] (PROAIR 2-17 11-22 [...] daily. Hospit a 09 l LYRICA 200 2017- Yes 1{tbl} Q.[id number] Take 1 [id number] 00:00: [facility]D [facility] ([facility]) l times a day. LYRICA 200 Yes 1{tbl} Q.[id number] Take 1 [id number] 00:00: [facility] 00 (three) l times a day. LYRICA 200 Yes 1{tbl} Q.[id number] Take 1 [id number] 00:00: 3D mouth 3 [facility] 00 (three) l times a day. LYRICA 200 Yes 1{tbl} Q.[id number] Take 1 [id number] 00:00: 3D mouth 3 [facility] 00 (three) l times a day. LYRICA 200 Yes 1{tbl} Q.[id number] Take 1 [id number] 00:00: 3D mouth 3 [facility] 00 (three) l times a day. LYRICA 200 Yes 1{tbl} Q.[id number] Take 1 [id number] 00:00: 3D mouth 3 [facility] 00 (three) l times a day. LYRICA 200 Yes 1{tbl} Q.[id number] Take 1 [id number] 00:00: 3D mouth 3 [facility] 00 (three) l times a day. LYRICA 200 2017- Yes 1{tbl} Q.[id number] Take 1 [id number] 00:00: 3D mouth 3 [facility] 00 (three) l times a day. LYRICA 200 Yes 1{tbl} Q.[id number] Take 1 [id number] 00:00: 3D mouth 3 [facility] 00 (three) l times a day. LYRICA 200 Yes 1{tbl} Q.[id number] Take 1 [id number] 00:00: 3D mouth 3 [facility] 00 (three) l times a day. LYRICA 200 Yes 1{tbl} Q.[id number] Take 1 [id number] 00:00: 3D mouth 3 [facility] 00 (three) l times a day. LYRICA 200 Yes 1{tbl} Q.[id number] Take 1 [facility] 5[id number] 00:00: 3D mouth 3 [facility] 00 (three) l times a day. LYRICA 200 Yes 1{tbl} Q.[id number] Take 1 [id number] 00:00: 3D mouth 3 [facility] 00 (three) l times a day. LYRICA 200 Yes 1{tbl} Q.[id number] Take 1 [facility] 5[id number] 00:00: 3D mouth 3 [facility] 00 (three) l times a day. PredniSONE PredniSONE Yes ZHEN TAPER [place] 20 MG Oral 20 MG Oral 1-18 KATELYN [facility] Tablet Tablet 00:00: M.D. ns - [...] misc 00:00: DIRECTED Hospita 00 l ACCU-CHEK 2016-1 Yes TK [facility] GUIDE 2-[address] [...] Immunizations Ordered Filled Immunization Date Status Comments [facility] e Immunization Name Name Pneumococcal 20 2022-04-22 Completed Universit y of Conjugate, PCV20 00:00:00 [facility] dical (Prevnar 20) Branch Zoster Vaccine 2022-04-22 Completed University of Recombinant 00:00:00 [facility] Pneumococcal 20 2022-04-22 Completed Universit y of Conjugate, PCV20 00:00:00 [facility] dical (Prevnar 20) Branch Zoster Vaccine 2022-04-22 Completed University of Recombinant 00:00:00 [facility] Pneumococcal 20 2022-04-22 Completed Universit y of Conjugate, PCV20 00:00:00 [facility] dical (Prevnar 20) Branch Zoster Vaccine 2022-04-22 Completed University of Recombinant 00:00:00 [facility] Pneumococcal 20 2022-04-22 Completed Universit y of Conjugate, PCV20 00:00:00 [facility] dical (Prevnar 20) Branch Zoster Vaccine 2022-04-22 Completed University of Recombinant 00:00:00 [facility] Pneumococcal 20 2022-04-22 Completed Universit y of Conjugate, PCV20 00:00:00 [facility] dical (Prevnar 20) Branch Zoster Vaccine 2022-04-22 Completed University of Recombinant 00:00:00 [facility] Pneumococcal 20 2022-04-22 Completed Universit y of Conjugate, PCV20 00:00:00 [facility] dical (Prevnar 20) Branch Zoster Vaccine 2022-04-22 Completed University of Recombinant 00:00:00 [facility] Pneumococcal 20 2022-04-22 Completed Universit y of Conjugate, PCV20 00:00:00 [facility] dical (Prevnar 20) Branch Zoster Vaccine 2022-04-22 Completed University of Recombinant 00:00:00 [facility] Pneumococcal 20 2022-04-22 Completed Universit y of Conjugate, PCV20 00:00:00 [facility] dical (Prevnar 20) Branch Zoster Vaccine 2022-04-22 Completed University of Recombinant 00:00:00 [facility] Pneumococcal 20 2022-04-22 Completed Universit y of Conjugate, PCV20 00:00:00 [facility] dical (Prevnar 20) Branch Zoster Vaccine 2022-04-22 Completed University of Recombinant 00:00:00 [facility] Pneumococcal 20 2022-04-22 Completed Universit y of Conjugate, PCV20 00:00:00 [facility] dical (Prevnar 20) Branch Zoster Vaccine 2022-04-22 Completed University of Recombinant 00:00:00 [facility] Pneumococcal 20 2022-04-22 Completed Universit y of Conjugate, PCV20 00:00:00 [facility] dical (Prevnar 20) Branch Zoster Vaccine 2022-04-22 Completed University of Recombinant 00:00:00 [facility] Pneumococcal 20 2022-04-22 Completed Universit y of Conjugate, PCV20 00:00:00 [facility] dical (Prevnar 20) Branch Zoster Vaccine 2022-04-22 Completed University of Recombinant 00:00:00 [facility] Pneumococcal 20 2022-04-22 Completed Universit y of Conjugate, PCV20 00:00:00 [facility] dical (Prevnar 20) Branch Zoster Vaccine 2022-04-22 Completed University of Recombinant 00:00:00 [facility] Pneumococcal 20 2022-04-22 Completed Universit y of Conjugate, PCV20 00:00:00 [facility] dical (Prevnar 20) Branch Zoster Vaccine 2022-04-22 Completed University of Recombinant 00:00:00 [facility] Pneumococcal 20 2022-04-22 Completed Universit y of Conjugate, PCV20 00:00:00 [facility] dical (Prevnar 20) Branch Zoster Vaccine 2022-04-22 Completed University of Recombinant 00:00:00 [facility] Pneumococcal 20 2022-04-22 Completed Universit y of Conjugate, PCV20 00:00:00 [facility] dical (Prevnar 20) Branch Zoster Vaccine 2022-04-22 Completed University of Recombinant 00:00:00 [facility] Pneumococcal 20 2022-04-22 Completed Universit y of Conjugate, PCV20 00:00:00 [facility] dical (Prevnar 20) Branch Zoster Vaccine 2022-04-22 Completed University of Recombinant 00:00:00 [facility] Pneumococcal 20 2022-04-22 Completed Universit y of Conjugate, PCV20 00:00:00 [facility] dical (Prevnar 20) Branch Zoster Vaccine 2022-04-22 Completed University of Recombinant 00:00:00 [facility] Pneumococcal 20 2022-04-22 Completed Universit y of Conjugate, PCV20 00:00:00 [facility] dical (Prevnar 20) Branch Zoster Vaccine 2022-04-22 Completed University of Recombinant 00:00:00 [facility] Pneumococcal 20 2022-04-22 Completed Universit y of Conjugate, PCV20 00:00:00 [place] [facility] (Prevnar 20) Branch Zoster Vaccine 2022-04-22 Completed University of Recombinant 00:00:00 [facility] Pneumococcal 20 2022-04-22 Completed Universit y of Conjugate, PCV20 00:00:00 [facility] dical (Prevnar 20) Branch Zoster Vaccine 2022-04-22 Completed University of Recombinant 00:00:00 [facility] Pneumococcal 20 2022-04-22 Completed Universit y of Conjugate, PCV20 00:00:00 [facility] dical (Prevnar 20) Branch Zoster Vaccine 2022-04-22 Completed University of Recombinant 00:00:00 [facility] Pneumococcal 20 2022-04-22 Completed Universit y of Conjugate, PCV20 00:00:00 [facility] dical (Prevnar 20) Branch Zoster Vaccine 2022-04-22 Completed University of Recombinant 00:00:00 [facility] Pneumococcal 20 2022-04-22 Completed Universit y of Conjugate, PCV20 00:00:00 [facility] dical (Prevnar 20) Branch Zoster Vaccine 2022-04-22 Completed University of Recombinant 00:00:00 [facility] Pneumococcal 20 2022-04-22 Completed Universit y of Conjugate, PCV20 00:00:00 [facility] dical (Prevnar 20) Branch Zoster Vaccine 2022-04-22 Completed University of Recombinant 00:00:00 [facility] Pneumococcal 20 2022-04-22 Completed Universit y of Conjugate, PCV20 00:00:00 [facility] dical (Prevnar 20) Branch Zoster Vaccine 2022-04-22 Completed University of Recombinant 00:00:00 [facility] Pneumococcal 20 2022-04-22 Completed Universit y of Conjugate, PCV20 00:00:00 [facility] dical (Prevnar 20) Branch Zoster Vaccine 2022-04-22 Completed University of Recombinant 00:00:00 [facility] Pneumococcal 20 2022-04-22 Completed Universit y of Conjugate, PCV20 00:00:00 [facility] dical (Prevnar 20) Branch Zoster Vaccine 2022-04-22 Completed University of Recombinant 00:00:00 [facility] Pneumococcal 20 2022-04-22 Completed Universit y of Conjugate, PCV20 00:00:00 [facility] dical (Prevnar 20) Branch Zoster Vaccine 2022-04-22 Completed University of Recombinant 00:00:00 [facility] Pneumococcal 20 2022-04-22 Completed Universit y of Conjugate, PCV20 00:00:00 [facility] dical (Prevnar 20) Branch Zoster Vaccine 2022-04-22 Completed University of Recombinant 00:00:00 [facility] Pneumococcal 20 2022-04-22 Completed Universit y of Conjugate, PCV20 00:00:00 [facility] dical (Prevnar 20) Branch Zoster Vaccine 2022-04-22 Completed University of Recombinant 00:00:00 [facility] Pneumococcal 20 2022-04-22 Completed Universit y of Conjugate, PCV20 00:00:00 [facility] dical (Prevnar 20) Branch Zoster Vaccine 2022-04-22 Completed University of Recombinant 00:00:00 [facility] Pneumococcal 20 2022-04-22 Completed Universit y of Conjugate, PCV20 00:00:00 [facility] dical (Prevnar 20) Branch Zoster Vaccine 2022-04-22 Completed University of Recombinant 00:00:00 [facility] Pneumococcal 20 2022-04-22 Completed Universit y of Conjugate, PCV20 00:00:00 [facility] dical (Prevnar 20) Branch Zoster Vaccine 2022-04-22 Completed University of Recombinant 00:00:00 [facility] Influenza Virus 2022-02-02 Completed Universit y of Vaccine Quad IM, 00:00:00 [facility] dical Preserv and ABX Branch Free 6 MO-64 YRS Influenza Virus 2022-02-02 Completed Universit y of Vaccine Quad IM, 00:00:00 [facility] dical Preserv and ABX Branch Free 6 MO-64 YRS Influenza Virus 2022-02-02 Completed Universit y of Vaccine Quad IM, 00:00:00 [facility] dical Preserv and ABX Branch Free 6 MO-64 YRS Influenza Virus 2022-02-02 Completed Universit y of Vaccine Quad IM, 00:00:00 [facility] dical Preserv and ABX Branch Free 6 MO-64 YRS Influenza Virus 2022-02-02 Completed Universit y of Vaccine Quad IM, 00:00:00 [facility] dical Preserv and ABX Branch Free 6 [...] Universit y of Vaccine Quad IM, 00:00:00 [place] [facility] Preserv and ABX Branch Free [...] Universit y of Vaccine Quad IM, 00:00:00 [place] [facility] Preserv and ABX Branch Free [...] Universit y of Vaccine Quad IM, 00:00:00 [place] [facility] Preserv and ABX Branch Free 6 MO-64 YRS Influenza Virus 2022-02-02 Completed Universit y of Vaccine Quad IM, 00:00:00 [place] [facility] Preserv and ABX Branch Free 6 MO-64 YRS Influenza Virus 2022-02-02 Completed Universit y of Vaccine Quad IM, 00:00:00 [place] [facility] Preserv and ABX Branch Free 6 MO-64 YRS Influenza Virus 2022-02-02 Completed Universit y of Vaccine Quad IM, 00:00:00 [place] [facility] Preserv and ABX Branch Free 6 MO-64 YRS Influenza Virus 2021-04-12 Completed Universit y of Vaccine 00:00:00 [facility] Influenza Virus 2021-04-12 Completed Universit y of Vaccine 00:00:00 [facility] Influenza Virus 2021-04-12 Completed Universit y of Vaccine 00:00:00 [facility] Influenza Virus 2021-04-12 Completed Universit y of Vaccine 00:00:00 [facility] Influenza Virus 2021-04-12 Completed Universit y of Vaccine 00:00:00 [facility] Influenza Virus 2021-04-12 Completed Universit y of Vaccine 00:00:00 [facility] Influenza Virus 2021-04-12 Completed Universit y of Vaccine 00:00:00 [facility] Influenza Virus 2021-04-12 Completed Universit y of Vaccine 00:00:00 [facility] Influenza Virus 2021-04-12 Completed Universit y of Vaccine 00:00:00 [facility] Influenza Virus 2021-04-12 Completed Universit y of Vaccine 00:00:00 [facility] Influenza Virus 2021-04-12 Completed Universit y of Vaccine 00:00:00 [facility] Influenza Virus 2021-04-12 Completed Universit y of Vaccine 00:00:00 [facility] Influenza Virus 2021-04-12 Completed Universit y of Vaccine 00:00:00 [facility] Influenza Virus 2021-04-12 Completed Universit y of Vaccine 00:00:00 [facility] Influenza Virus 2021-04-12 Completed Universit y of Vaccine 00:00:00 [facility] Influenza Virus 2021-04-12 Completed Universit y of Vaccine 00:00:00 [facility] Influenza Virus 2021-04-12 Completed Universit y of Vaccine 00:00:00 [facility] Influenza Virus 2021-04-12 Completed Universit y of Vaccine 00:00:00 [facility] Influenza Virus 2021-04-12 Completed Universit y of Vaccine 00:00:00 [facility] Influenza Virus 2021-04-12 Completed Universit y of Vaccine 00:00:00 [facility] Influenza Virus 2021-04-12 Completed Universit y of Vaccine 00:00:00 [facility] Influenza Virus 2021-04-12 Completed Universit y of Vaccine 00:00:00 [facility] Influenza Virus 2021-04-12 Completed Universit y of Vaccine 00:00:00 [facility] Influenza Virus 2021-04-12 Completed Universit y of Vaccine 00:00:00 [facility] Influenza Virus 2021-04-12 Completed Universit y of Vaccine 00:00:00 [facility] Influenza Virus 2021-04-12 Completed Universit y of Vaccine 00:00:00 [facility] Influenza Virus 2021-04-12 Completed Universit y of Vaccine 00:00:00 [facility] Influenza Virus 2021-04-12 Completed Universit y of Vaccine 00:00:00 [facility] Influenza Virus 2021-04-12 Completed Universit y of Vaccine 00:00:00 [facility] Influenza Virus 2021-04-12 Completed Universit y of Vaccine 00:00:00 [facility] Influenza Virus 2021-04-12 Completed Universit y of Vaccine 00:00:00 [facility] Influenza Virus 2021-04-12 Completed Universit y of Vaccine 00:00:00 [facility] Influenza Virus 2021-04-12 Completed Universit y of Vaccine 00:00:00 [facility] Influenza Virus 2021-04-12 Completed Universit y of Vaccine 00:00:00 [facility] Influenza Virus 2021-04-12 Completed Universit y of Vaccine 00:00:[address] [facility] Branch Influenza Virus 2021-04-12 Completed Universit y of Vaccine 00:00:00 [facility] Influenza Virus 2021-04-12 Completed Universit y of Vaccine 00:00:[address] [facility] Branch Influenza Virus 2021-04-12 Completed Universit y of Vaccine 00:00:00 [facility] Influenza Virus 2021-04-12 Completed Universit y of Vaccine 00:00:00 [facility] Influenza Virus 2021-04-12 Completed Universit y of Vaccine 00:00:[address] [facility] Branch Influenza Virus 2021-04-12 Completed Universit y of Vaccine 00:00:[address] [facility] Branch Influenza Virus 2021-04-12 Completed Universit y of Vaccine 00:00:00 [facility] Influenza Virus 2021-04-12 Completed Universit y of Vaccine 00:00:00 [facility] Influenza Virus 2021-04-12 Completed Universit y of Vaccine 00:00:00 [facility] Influenza Virus 2021-04-12 Completed Universit y of Vaccine 00:00:00 [facility] Influenza Virus 2021-04-12 Completed Universit y of Vaccine 00:00:00 [facility] Influenza Virus 2021-04-12 Completed Universit y of Vaccine 00:00:00 [facility] Influenza Virus 2021-04-12 Completed Universit y of Vaccine 00:00:[address] [facility] Branch Influenza Virus 2021-04-12 Completed Universit y of Vaccine 00:00:00 [facility] Influenza Virus 2021-04-12 Completed Universit y of Vaccine 00:00:00 [facility] Influenza Virus 2021-04-12 Completed Universit y of Vaccine 00:00:00 [facility] Influenza Virus 2021-04-12 Completed Universit y of Vaccine 00:00:00 [facility] Branch Influenza Virus 2021-04-12 Completed Universit y of Vaccine 00:00:[address] [facility] Branch Influenza Virus 2021-04-12 Completed Universit y of Vaccine 00:00:[address] [facility] Branch Influenza Virus 2021-04-12 Completed Universit y of Vaccine 00:00:00 [facility] Branch Influenza Virus 2021-04-12 Completed Universit y of Vaccine 00:00:00 [facility] Influenza Virus 2021-04-12 Completed Universit y of Vaccine 00:00:00 [facility] Influenza Virus 2021-04-12 Completed Universit y of Vaccine 00:00:00 [facility] Influenza Virus 2021-04-12 Completed Universit y of Vaccine 00:00:00 [facility] Influenza Virus 2021-04-12 Completed Universit y of Vaccine 00:00:00 [facility] Influenza Virus 2021-04-12 Completed Universit y of Vaccine 00:00:00 [facility] Influenza Virus 2021-04-12 Completed Universit y of Vaccine 00:00:00 [facility] Influenza Virus 2019-04-22 Completed Universit y of Vaccine Quad .5 mL 00:00:00 [place] [facility] 6+ MO Branch Influenza Virus 2019-04-22 Completed Universit y of Vaccine Quad .5 mL 00:00:00 [place] [facility] 6+ MO Branch Influenza Virus 2019-04-22 Completed Universit y of Vaccine Quad .5 mL 00:00:00 [place] [facility] 6+ MO Branch Influenza Virus [...] y of Vaccine Quad .5 mL 00:00:00 [facility] MO [facility] TDAP 2013-06-09 Completed University of 00:00:00 [facility] TDAP 2013-06-09 Completed University of 00:00:00 [facility] TDAP 2013-06-09 Completed University of 00:00:00 [facility] TDAP 2013-06-09 Completed University of 00:00:[address] [facility] TDAP 2013-06-09 Completed University of 00:00:[address] [facility] TDAP 2013-06-09 Completed University of 00:00:[address] [facility] TDAP 2013-06-09 Completed University of 00:00:[address] [facility] TDAP 2013-06-09 Completed University of 00:00:[address] [facility] TDAP 2013-06-09 Completed University of 00:00:[address] [facility] TDAP 2013-06-09 Completed University of 00:00:[address] [facility] TDAP 2013-06-09 Completed University of 00:00:[address] [facility] TDAP 2013-06-09 Completed University of 00:00:[address] [facility] TDAP 2013-06-09 Completed University of 00:00:[address] [facility] TDAP 2013-06-09 Completed University of 00:00:[address] [facility] TDAP 2013-06-09 Completed University of 00:00:[address] [facility] TDAP 2013-06-09 Completed University of 00:00:[address] [facility] TDAP 2013-06-09 Completed University of 00:00:[address] [facility] TDAP 2013-06-09 Completed University of 00:00:[address] [facility] TDAP 2013-06-09 Completed University of 00:00:[address] [facility] TDAP 2013-06-09 Completed University of 00:00:[address] [facility] TDAP 2013-06-09 Completed University of 00:00:[address] [facility] TDAP 2013-06-09 Completed University of 00:00:[address] [facility] TDAP 2013-06-09 Completed University of 00:00:[address] [facility] TDAP 2013-06-09 Completed University of 00:00:[address] [facility] TDAP 2013-06-09 Completed University of 00:00:[address] [facility] TDAP 2013-06-09 Completed University of 00:00:[address] [facility] TDAP 2013-06-09 Completed University of 00:00:[address] [facility] TDAP 2013-06-09 Completed University of 00:00:[address] [facility] TDAP 2013-06-09 Completed University of 00:00:[address] [facility] TDAP 2013-06-09 Completed University of 00:00:[address] [facility] TDAP 2013-06-09 Completed [facility] 00:00:00 [facility] TDAP 2013-06-09 Completed University of 00:00:00 [facility] TDAP 2013-06-09 Completed University of 00:00:00 [facility] TDAP 2013-06-09 Completed University of 00:00:00 [facility] TDAP 2013-06-09 Completed University of 00:00:[address] [facility] TDAP 2013-06-09 Completed University of 00:00:[address] [facility] TDAP 2013-06-09 Completed University of 00:00:00 [facility] TDAP 2013-06-09 Completed University of 00:00:00 [facility] TDAP 2013-06-09 Completed University of 00:00:00 [facility] TDAP 2013-06-09 Completed University of 00:00:00 [facility] TDAP 2013-06-09 Completed University of 00:00:[address] [facility] TDAP 2013-06-09 Completed University of 00:00:[address] [facility] TDAP 2013-06-09 Completed University of 00:00:[address] [facility] TDAP 2013-06-09 Completed University of 00:00:[address] [facility] TDAP 2013-06-09 Completed University of 00:00:[address] [facility] TDAP 2013-06-09 Completed University of 00:00:[address] [facility] TDAP 2013-06-09 Completed University of 00:00:[address] [facility] TDAP 2013-06-09 Completed University of 00:00:[address] [facility] TDAP 2013-06-09 Completed University of 00:00:[address] [facility] TDAP 2013-06-09 Completed University of 00:00:00 [facility] TDAP 2013-06-09 Completed University of 00:00:00 [facility] TDAP 2013-06-09 Completed University of 00:00:00 [facility] TDAP 2013-06-09 Completed University of 00:00:00 [facility] TDAP 2013-06-09 Completed University of 00:00:00 [facility] TDAP 2013-06-09 Completed University of 00:00:00 [facility] TDAP 2013-06-09 Completed University of 00:00:[address] [facility] TDAP 2013-06-09 Completed University of 00:00:00 [facility] TDAP 2013-06-09 Completed University of 00:00:00 [facility] TDAP 2013-06-09 Completed University of 00:00:00 [facility] TDAP 2013-06-09 Completed University of 00:00:00 [facility] TDAP 2013-06-09 Completed University of 00:00:00 [facility] TDAP 2013-06-09 Completed University of 00:00:00 [facility] Vital Signs Vital Name Observation Time Observation Value Comments Source Systolic blood 2022-10-28 22:10:00 158 mm[Hg] Univer sity of pressure [facility] Diastolic blood 2022-10-28 22:10:00 90 mm[Hg] Unive rsity of pressure [facility] Heart rate 2022-10-28 22:10:00 105 /min Universi ty of [facility] Oxygen saturation in 2022-10-28 22:10:00 96 /min University of Arterial blood by [place] [facility] Pulse oximetry Branch Respiratory rate 2022-10-28 21:05:00 30 /min Univ ersity of [facility] Body temperature 2022-10-28 15:29:00 36.72 Araseli Univ ersity of [facility] Body weight 2022-10-28 15:29:00 111.585 kg Universi ty of [facility] BMI 2022-10-28 15:29:00 39.71 kg/m2 [facility] Systolic blood 2022-04-03 19:51:00 134 mm[Hg] Univer sity of pressure [facility] Diastolic blood 2022-04-03 19:51:00 86 mm[Hg] Unive rsity of pressure [facility] Heart rate 2022-04-03 19:51:00 83 /min Universi ty of [facility] Oxygen saturation in 2022-04-03 19:51:00 97 /min University of Arterial blood by [place] [facility] P[facility]xim[facility] Branch Body temperature 2022-04-03 19:48:00 36.72 Araseli Univ ersity of [facility] Respiratory rate 2022-04-03 19:48:00 17 /min Univ ersity of [facility] Body weight 2022-04-03 19:48:00 111.63 kg [facility]i ty of [facility] BMI 2022-04-03 19:48:00 39.72 kg/m2 [facility] Systolic blood 2022-02-02 20:20:00 138 mm[Hg] Univer sity of pressure [facility] Diastolic blood 2022-02-02 20:20:00 90 mm[Hg] [facility] Heart rate 2022-02-02 20:19:00 78 /min [facility] Body height 2022-02-02 20:19:00 167.6 cm [facility] Body weight 2022-02-02 20:19:00 104.736 kg [facility] BMI 2022-02-02 20:19:00 37.27 kg/m2 [facility] Oxygen saturation in 2022-02-02 20:19:00 99 /min [facility] Arterial blood by [facility] Pulse oximetry Branch Procedures Procedure Date / Time Performing Clinician Source Performed US TESTICULAR TORSION 2022-10-28 18:10:00 Fareed Paul [facility] BASIC METABOLIC PANEL 2022-10-28 15:47:00 Fareed Paul [facility] (NA, K, CL, CO2, GLUCOSE, Medica l Branch BUN, CREATININE, CA) CBC WITH DIFF 2022-10-28 15:47:[address] [facility] URINALYSIS 2022-10-28 15:47:[address] [facility] CONSENT/REFUSAL FOR 2022-10-28 15:25:48 Doctor Chadwick [facility] DIAGNOSIS AND TREATMENT [facility] EXTERNAL PROVIDER - ADC 2022-05-03 06:01:00 Doctor Chadwick [facility] CARDIOLOGY [facility] AUTHORIZATION TO RELEASE 2022-04-03 06:01:00 Doctor Genao [facility] PHI TO [facility] US ABDOMEN COMPLETE 2022-02-13 18:24:56 Blessing Yanes [facility] FLU VACC ([phone]), 6 2022-02-02 20:37:25 Blessing Yanes [facility] MO-64 YRS, .5ML, IM, QUAD Medica l Branch (FLUCELVAX) MEDICATION CORRESPONDENCE 2022-01-19 05:01:00 Doctor Chadwick, [facility] DME/SUPPLY JUSTIFICATION 2021-12-25 05:01:00 Doctor Unassigned, [facility] Spine lumbar myelogram 2017-05-30 00:00:00 [facility] [id number] Plan of Care Planned Activity Planned Date Details Comments Source Future Scheduled 2022-11-21 [facility] Test 10:58:39 malignant neoplasm of colon (procedure) [code = 948541021] Future Scheduled 2022-11-21 [facility] Test 10:58:39 malignant neoplasm of colon (procedure) [code = 568692909] Future Scheduled 2022-11-21 [facility] Test 10:58:39 malignant neoplasm of colon (procedure) [code = 352845259] Future Scheduled 2022-11-21 COVID[facility]19 [facility] 10:58:39 [code = COVID-19 VACCINE (#1)] Future Scheduled 2022-11-21 [facility] Test 10:58:39 malignant neoplasm of colon (procedure) [code = 595037546] Future Scheduled 2022-11-21 [facility] Test 10:58:39 malignant neoplasm of colon (procedure) [code = 875054214] Future Scheduled 2022-11-21 SHINGLES VACCINES (1 [facility] Test 10:58:39 of 2) [code = SHINGLES VACCINES (1 of 2)] Future Scheduled 2022-11-21 INFLUENZA VACCINE [facility] Test 10:58:39 [code = INFLUENZA VACCINE] Future Scheduled 2022-10-25 [facility] Test 12:18:53 malignant neoplasm of colon (procedure) [code = 880037460] Future Scheduled 2022-10-25 [facility] Test 12:18:53 malignant neoplasm of colon (procedure) [code = 302482452] Future Scheduled 2022-10-25 [facility] Test 12:18:53 malignant neoplasm of colon (procedure) [code = 345777497] Future Scheduled 2022-10-25 COVID-19 VACCINE (#1[facility] 12:18:53 [code = COVID-19 VACCINE (#1)] Future Scheduled 2022-10-25 [facility] Test 12:18:53 malignant neoplasm of colon (procedure) [code = 741507651] Future Scheduled 2022-10-25 [facility] Test 12:18:53 malignant neoplasm of colon (procedure) [code = 578119597] Future Scheduled 2022-10-25 [facility]:18[facility]53 of 2) [code = SHINGLES VACCINES (1 of 2)] Future Scheduled 2022-10-25 INFLUENZA VACCINE [facility] Test 12:18:53 [code = INFLUENZA VACCINE] Future Scheduled 2022-08-15 COVID-19 VACCINE (#1) [facility] Test 23:12:16 [code = COVID-19 VACCINE (#1)] Future Scheduled 2022-08-[address] 23:12:16 [code = COLONOSCOPY SCREENING] Future Scheduled 2022-08-15 [facility]IN[facility]:12:16 of 2) [code = SHINGLES VACCINES (1 of 2)] Future Scheduled 2022-08-15 INFLUENZA VACCINE Method [facility] Test 23:12:16 [code = INFLUENZA VACCINE] Future Scheduled 2022-04-25 COVID-19 VACCINE (#1[facility] 20:19:34 [code = COVID-19 VACCINE (#1)] Future Scheduled 2022-04-25 COLONOSCOPY SCREENING [facility] Hospital Test 20:19:34 [code = COLONOSCOPY SCREENING] Future Scheduled 2022-04-25 [facility]LES [facility]INES [facility] 20:19:34 of 2) [code = SHINGLES VACCINES (1 of 2)] Future Scheduled 2022-04-25 INFLUENZA VACCINE [facility] Test 20:19:34 [code = INFLUENZA VACCINE] Future Scheduled 2022-04-25 COVID-19 VACCINE (#1) [facility] Test 20:19:34 [code = COVID-19 VACCINE (#1)] Future Scheduled 2022-04-25 COLONOSCOPY SCREENING [facility] Hospital Test 20:19:34 [code = COLONOSCOPY SCREENING] Future Scheduled 2022-04-25 [facility]INES [facility] 20:19:34 of 2) [code = SHINGLES VACCINES (1 of 2)] Future Scheduled 2022-04-25 INFLUENZA VACCINE Method [facility] Hospital Test 20:19:34 [code = INFLUENZA VACCINE] Future Scheduled 2022-04-25 COVID-19 [facility]ACCINE (#1[facility] 20:19:34 [code = COVID-19 VACCINE (#1)] Future Scheduled 2022-04-25 COLONOSCOPY SCREENING [facility] Hospital Test 20:19:34 [code = COLONOSCOPY SCREENING] Future Scheduled 2022-04-25 SHINGLES VACCINES (1 Met [facility] Hospital Test 20:19:34 of 2) [code = SHINGLES VACCINES (1 of 2)] Future Scheduled 2022-04-25 INFLUENZA VACCINE Method ist Hospital Test 20:19:34 [code = INFLUENZA VACCINE] Future Scheduled 2022-04-25 COVID-19 VACCINE (#1) [facility] Hospital Test 20:19:34 [code = COVID-19 VACCINE (#1)] Future Scheduled 2022-04-25 COLONOSCOPY SCREENING [facility] Hospital Test 20:19:34 [code = COLONOSCOPY SCREENING] Future Scheduled 2022-04-25 SHINGLES VACCINES (1 [facility] Hospital Test 20:19:34 of 2) [code = SHINGLES VACCINES (1 of 2)] Future Scheduled 2022-04-25 INFLUENZA VACCINE Method is Hospital Test 20:19:34 [code = INFLUENZA VACCINE] Future Scheduled 2022-03-14 HEPATITIS B VACCINES [facility] Hospital Test 23:23:26 (1 of 3 - 3-dose series) [code = HEPATITIS B VACCINES (1 of 3 - 3-dose series)] Future Scheduled 2022-03-14 COVID-19 VACCINE (#1) [facility] Hospital Test 23:23:26 [code = COVID-19 VACCINE (#1)] Future Scheduled 2022-03-14 COLONOSCOPY SCREENING [facility] Hospital Test 23:23:26 [code = COLONOSCOPY SCREENING] Future Scheduled 2022-03-14 SHINGLES VACCINES (1 [facility] Hospital Test 23:23:26 of 2) [code = SHINGLES VACCINES (1 of 2)] Future Scheduled 2022-03-14 INFLUENZA VACCINE Method ist Hospital Test 23:23:26 [code = INFLUENZA VACCINE] Future Scheduled 2022-03-14 HEPATITIS B VACCINES [facility] Hospital Test 23:23:26 (1 of 3 - 3-dose series) [code = HEPATITIS B VACCINES (1 of 3 - 3-dose series)] Future Scheduled 2022-03-14 COVID[facility]19 [facility]INE [facility] 23:23:26 [code = COVID-19 VACCINE (#1)] Future Scheduled 2022-03-14 COLONOSCOPY SCREENING [facility] Hospital Test 23:23:26 [code = COLONOSCOPY SCREENING] Future Scheduled 2022-03-14 SHINGLES VACCINES (1 [facility] Hospital Test 23:23:26 of 2) [code = SHINGLES VACCINES (1 of 2)] Future Scheduled 2022-03-14 INFLUENZA VACCINE Method is Hospital Test 23:23:26 [code = INFLUENZA VACCINE] Future Scheduled 2022-01-03 INFLUENZA VACCINE Method is Hospital Test 17:56:50 [code = INFLUENZA VACCINE] Future Scheduled 2022-01-03 HEPATITIS B VACCINES [facility] Test 17:56:50 (1 of 3 - 3-dose series) [code = HEPATITIS B VACCINES (1 of 3 - 3-dose series)] Future Scheduled 2022-01-03 COVID-19 VACCINE (#1) [facility] Hospital Test 17:56:50 [code = COVID-19 VACCINE (#1)] Future Scheduled 2022-01-03 COLONOSCOPY SCREENING [facility] Hospital Test 17:56:50 [code = COLONOSCOPY SCREENING] Future Scheduled 2022-01-03 SHINGLES VACCINES (1 [facility] Hospital Test 17:56:50 of 2) [code = SHINGLES VACCINES (1 of 2)] Future Scheduled 2022-01-03 INFLUENZA VACCINE Method is Hospital Test 17:56:50 [code = INFLUENZA VACCINE] Future Scheduled 2022-01-03 HEPATITIS B VACCINES [facility] Hospital Test 17:56:50 (1 of 3 - 3-dose series) [code = HEPATITIS B VACCINES (1 of 3 - 3-dose series)] Future Scheduled 2022-01-03 COVID-19 VACCINE (#1) [facility] Hospital Test 17:56:50 [code = COVID-19 VACCINE (#1)] Future Scheduled 2022-01-03 COLONOSCOPY SCREENING [facility] Hospital Test 17:56:50 [code = COLONOSCOPY SCREENING] Future Scheduled 2022-01-03 SHINGLES VACCINES (1 [facility] Hospital Test 17:56:50 of 2) [code = SHINGLES VACCINES (1 of 2)] Future Scheduled 2022-01-03 INFLUENZA VACCINE Method is Hospital Test 17:56:50 [code = INFLUENZA VACCINE] Future Scheduled 2022-01-03 HEPATITIS B VACCINES [facility] Hospital Test 17:56:50 (1 of 3 - 3-dose series) [code = HEPATITIS B VACCINES (1 of 3 - 3-dose series)] Future Scheduled 2022-01-03 COVID-19 VACCINE (#1) [facility] Hospital Test 17:56:50 [code = COVID-19 VACCINE (#1)] Future Scheduled 2022-01-03 COLONOSCOPY SCREENING [facility] Hospital Test 17:56:50 [code = COLONOSCOPY SCREENING] Future Scheduled 2022-01-03 SHINGLES VACCINES (1 [facility] Hospital Test 17:56:50 of 2) [code = SHINGLES VACCINES (1 of 2)] Future Scheduled 2022-01-03 INFLUENZA VACCINE Method is Hospital Test 17:56:50 [code = INFLUENZA VACCINE] Future Scheduled 2022-01-03 HEPATITIS B VACCINES [facility] Test 17:56:50 (1 of 3 - 3-dose series) [code = HEPATITIS B VACCINES (1 of 3 - 3-dose series)] Future Scheduled 2022-01-03 COVID-19 VACCINE (#1) [facility] Hospital Test 17:56:50 [code = COVID-19 VACCINE (#1)] Future Scheduled 2022-01-03 COLONOSCOPY SCREENING [facility] Test 17:56:50 [code = COLONOSCOPY SCREENING] Future Scheduled 2022-01-03 SHINGLES VACCINES (1 [facility] Test 17:56:50 of 2) [code = SHINGLES VACCINES (1 of 2)] Future Scheduled 2022-01-03 INFLUENZA VACCINE Method is Hospital Test 17:56:50 [code = INFLUENZA VACCINE] Future Scheduled 2022-01-03 HEPATITIS B VACCINES [facility] Test 17:56:50 (1 of 3 - 3-dose series) [code = HEPATITIS B VACCINES (1 of 3 - 3-dose series)] Future Scheduled 2022-01-03 COVID-19 VACCINE (#1) [facility] Hospital Test 17:56:50 [code = COVID-19 VACCINE (#1)] Future Scheduled 2022-01-03 COLONOSCOPY SCREENING [facility] Test 17:56:50 [code = COLONOSCOPY SCREENING] Future Scheduled 2022-01-03 SHINGLES VACCINES (1 Met [facility] Test 17:56:50 of 2) [code = SHINGLES VACCINES (1 of 2)] Encounters Start End Encounter Admission Attending Care Care Encounter Source Date/Time Date/Time Type Type Clinicians Facility Department ID 2022-11-12 2022-11-12 [id number] Univers 00:00:00 00:00:00 Blessing A HEALTH 350.1.13.10 i ty of [place] 4.2.7.2.686 Adrien as BORIS?BLEA [id number] [address] 2022-11-10 2022-11-10 [facility] [id number] Univers 00:00:00 00:00:00 [facility] HEALTH 350.1.13.10 i ty of [place] 4.2.7.2.686 Adrien as BORIS?BLEA [id number] [address] 2022-11-10 2022-11-10 [facility] [id number] Univers 00:00:00 00:00:00 Blessing A HEALTH 350.1.13.10 i ty of [place] 4.2.7.2.686 Adrien as BORIS?BLEA [id number] [address] 2022-10-28 2022-10-28 Emergency X HUMBERTO [facility] ERT [id number] Univers 10:30:00 18:00:00 FAREED ity of [facility] 2022-10-28 2022-10-28 Emergency Humberto [facility] [id number] Univers 10:30:00 18:00:00 [facility] 350.1.13.10 [place] [id number] [address] 2022-10-24 2022-10-24 Outpatient R HOANG [facility] [id number] Univers 14:40:00 14:40:00 DILIP pickering [facility] 2022-10-15 2022-10-15 Outpatient R HOANG [facility] [id number] Univers 14:40:00 14:40:00 DILIP pickering [facility] 2022-10-12 2022-10-12 [id number] [id number] Univers 00:00:00 00:00:00 Blessing A HEALTH 350.1.13.10 i ty of [place] 4.2.7.2.686 Adrien as BORIS?BLEA [id number] [address] 2022-10-12 2022-10-12 [facility] 1.2.840.114 [id number] Univers 00:00:00 00:00:00 Blessing A HEALTH 350.1.13.10 i ty of [place] 4.2.7.2.686 Adrien as BORIS?BLEA [id number] [address] 2022-10-12 2022-10-12 [facility] 1.2.840.114 [id number] Univers 00:00:00 00:00:00 Blessing A HEALTH 350.1.13.10 i ty of [place] 4.2.7.2.686 Adrien as BORIS?BLEA [id number] [address] 2022-10-12 2022-10-12 [facility] 1.2.840.114 [id number] Univers 00:00:00 00:00:00 [facility] HE[facility] 350.1.13.10 i ty of [place] 4.2.7.2.686 Adrien as BORIS?BLEA [id number] [address] 2022-10-01 2022-10-01 Outpatient R HOANG [facility] [id number] Univers 14:00:00 14:00:00 RODOLFOCARLOS ALBERTO pickering [facility] 2022-09-18 2022-09-18 Telephone [facility] [id number] Univers 00:00:00 00:00:00 Qiacarlos alberto [place] 350.1.13.10 [place] [phone] Or susanna NAL 9 [facility] 2022 2022 Outpatient R HOANG [facility] [id number] Univers 09:00:00 09:00:00 QIARICHJUN ity o f [facility] 2022-09-05 2022-09-05 [facility] 1.2.840.114 [id number] Univers 00:00:00 00:00:00 Blessing A HEALTH 350.1.13.10 i ty of [place] 4.2.7.2.686 Adrien as BORIS?BLEA [id number] [address] OFFICE [facility] 2022-09-03 2022-09-03 Patient [facility] 1.2.840.114 [id number] Univers 00:00:00 00:00:00 Secure Msg Blessing A HEALTH 350.1.13.10 ity of [facility] 4.2.7.2.686 Adrien as BORIS?BLEA [id number] [address] OFFICE [facility] 2022-08-31 2022-08-31 [facility] 1.2.840.114 [id number] Univers 00:00:00 00:00:00 Secure Msg Blessing A HEALTH 350.1.13.10 ity of [place] 4.2.7.2.686 Adrien as BORIS?BLEA [id number] [address] OFFICE [facility] 2022-08-31 2022-08-31 Patient [facility] 1.2.840.114 [id number] Univers 00:00:00 00:00:00 Secure Msg Dilip [place] 350.1.13.10 ity of [facility] [place] [id number] Or ana paulawy NAL 9 [facility] 2022-08-31 2022-08-31 [facility]ill [facility] 1.2.840.114 [id number] Univers 00:00:00 00:00:00 Maggie MULTISPEC 350.1.13.10 [place]2.[place] [id number] Adore Sheth [address] [facility] 2022-08-31 2022-08-31 Refmarah WinterersGUADALUPE [facility] 1.2.840.114 [id number] Univers 00:00:00 00:00:00 Alfred HEALTH 350.1.13.10 it y of [place] 4.2.7.2.686 Adrien as BORIS?BLEA [id number] [address] MEDICAL OFFICE BUILDING 2022-08-27 2022-08-27 Telephone [facility] [id number] Univers 00:00:00 00:00:00 Dilip [facility] 350.1.13.10 [place] [facility] [id number] [place] [id number] [facility] 2022-08-14 2022-08-14 Patient [facility] 1.2.840.114 [id number] Univers 00:00:00 00:00:00 Secure Ms Blessing Herr HEALTH 350.1.13.10 ity of [facility] 4.2.7.2.686 Adrien as BORIS?BLEA [id number] [address] MEDICAL OFFICE [facility] 2022-08-11 2022-08-11 Emergency ER CATANESCU, [facility] [id number] [place] 05:03:00 06:34:00 TEREZA -[id number] [facility] 2022-07-21 2022-07-21 Emergency ER SHEKHAR, [facility] [facility] D000 [id number] [place] 19:47:00 21:28:00 CASSY -[id number] [facility] 2022-07-03 2022-07-03 Outpatient BIBIANA RESENDIZ 814 [place] 00:00:00 00:00:00 HN 0221 da [facility] Outre h Program 2022-07-02 2022-07-02 [facility]phone [facility] 1.2.840.114 1 [id number] Univers 00:00:00 00:00:00 Kay Tito MULTISPEC 350.1.13.10 [place] [id number] Adore [facility] AND JAIRO [address] [place] [facility] 2022-06-25 2022-06-25 Refill Doctor REBA 1.2.840.114 [id number] Univers 00:00:00 00:00:00 Unassigned, HEALTH 350.1.13.10 ity of [place] 4.2.7.2.686 Adrien as BORIS?BLEA [phone] [address] MEDICAL OFFICE [facility] 2022-06-25 2022-06-25 Refill Farzana, [facility] 1.2.840.114 [id number] Univers 00:00:00 00:00:00 Blessing A HEALTH 350.1.13.10 i ty of [place] 4.2.7.2.686 Adrien as BORIS?BLEA [phone] [address] MEDICAL OFFICE [facility] 2022-06-25 2022-06-25 Refill Farzana, [facility] 1.2.840.114 [id number] Univers 00:00:00 00:00:00 Blessing A HEALTH 350.1.13.10 i ty of [place] 4.2.7.2.686 Adrien as BORIS?BLEA [id number] [address] MEDICAL OFFICE [facility] 2022-06-25 2022-06-25 Patient Farzana, [facility] 1.2.840.114 [id number] Univers 00:00:00 00:00:00 Secure Msg Blessing A HEALTH 350.1.13.10 ity of [place] 4.2.7.2.686 Adrien as BORIS?BLEA [id number] [address] MEDICAL OFFICE BUILDING 2022-05-03 2022-05-03 Orders Doctor ALEM 1.2.840.114 [id number] Univers 00:00:00 00:00:00 Only Unassigned, LUIS ARMANDO 350.1.13.10 ity of [place] [facility] 4.2.7.2.686 Adrien as [id number] [address] 2022-04-24 2022-04-24 Patient Hoang, [facility] 1.2.840.114 [id number] Univers 00:00:00 00:00:00 Secure Msg Dilip [place] 350.1.13.10 ity of [place].7.2.[place] [phone] Or dical NAL 059 [facility] 2022-04-23 2022-04-23 Patient Farzana, [facility] 1.2.840.114 [id number] Univers 00:00:00 00:00:00 Secure Msg Blessing A HEALTH 350.1.13.10 ity of [place] 4.2.7.2.686 Adrien as BORIS?BLEA [id number] [address] OFFICE [facility] 2022-04-23 2022-04-23 Patient Farzana, [facility] 1.2.840.114 [id number] Univers 00:00:00 00:00:00 Secure Msg Blessing A HEALTH 350.1.13.10 ity of [place] 4.2.7.2.686 Adrien as BORIS?BLEA [id number] [address] MEDICAL OFFICE [facility] 2022-04-22 2022-04-22 Refill Farzana, [facility] 1.2.840.114 [id number] Univers 00:00:00 00:00:00 Blessing A HEALTH 350.1.13.10 i ty of [place] 4.2.7.2.686 Adrien as BORIS?BLEA [id number] [address] MEDICAL OFFICE [facility] 2022-04-08 2022-04-08 [facility] 1.2.449.971 [id number] Univers 00:00:00 00:00:00 Blessing A HEALTH 350.1.13.10 i ty of [place] 4.2.7.2.686 Adrien as BORIS?BLEA [id number] [address] OFFICE [facility] 2022-04-06 2022-04-06 Emergency ER SKYLAR [facility] [id number] [place] 12:30:00 15:21:00 [id number] da [facility] 2022-04-06 2022-04-06 [facility]ill [facility] 1.2.840.114 [id number] Univers 00:00:00 00:00:00 Dilip CARLOS 350.1.13.10 ity of [facility] [place] [id number] Or dical NAL [address] [place] [address] 2022-04-04 2022-04-04 Patient Rachelle [facility] 1.2.840.114 [id number] Univers 00:00:00 00:00:00 Secure Msg Kay DARBYPEC 350.1.13.10 it[place] of [place] C[place] [id number] [facility] AND [address] [facility] 2022-04-03 2022-04-03 Office [facility] 1.2.840.114 [id number] Univers 14:20:00 14:20:00 Visit Dilip CARLOS 350.1.13.10 ity of [place] 4.2.7.2.[place] [id number] [address] 2022-04-03 2022-04-03 Outpatient R HOANG [facility] [id number] Univers 14:20:00 14:09:45 DILIP calderóny o f [facility] 2022-04-03 2022-04-03 Refill [facility] 1.2.840.114 [id number] Univers 00:00:00 00:00:00 Kay DARBYPEC 350.1.13.10 it[place] of [place] CENTER [id number] [facility] AND [address] [facility] 2022-04-03 2022-04-03 Orders Doctor FERRARA 1.2.840.114 [id number] Univers 00:00:00 00:00:00 Only Unassigned, LUIS ARMANDO 350.1.13.10 ity of [place] [facility] 4.2.7.2.686 Adrien as [id number] [address] 2022-03-19 2022-03-19 Outpatient R HOANG, [facility] [id number] Univers 09:20:00 09:20:00 DILIP alonso [facility] 2022-03-19 2022-03-19 Outpatient R HOANG, [facility] [id number] Univers 09:20:00 09:20:00 DILIP alonso [facility] 2022-03-19 2022-03-19 Outpatient R HOANG, [facility] [id number] Univers 09:20:00 09:20:00 DILIP alonso [facility] 2022-03-19 2022-03-19 Outpatient R HOANG, [facility] [id number] Univers 09:20:00 09:20:00 RODOLFOBEAU donnelly [facility] 2022-03-19 2022-03-19 Outpatient R HOANG, [facility] [id number] Univers 09:20:00 09:20:00 [facility] 2022-02-15 2022-02-15 Telephone [facility] 1.2.039.199 [id number] Univers 00:00:00 00:00:00 Blessing A HEALTH 350.1.13.10 i ty of [place] 4.2.7.2.686 Adrien as BORIS?BLEA [id number] [address] MEDICAL OFFICE [facility] 2022-02-14 2022-02-14 Outpatient FERGUSON_JO [facility] 814 [place] 00:00:00 00:00:00 HN 1005 [facility] 2022-02-14 2022-02-14 [facility] 1.2.840.114 [id number] Univers 00:00:00 00:00:00 Secure Msg Blessing A HEALTH 350.1.13.10 ity of [place] 4.2.7.2.686 Adrien as BORIS?BLEA [id number] [address] MEDICAL OFFICE [facility] 2022-02-13 2022-02-13 Outpatient [facility] [id number] Univers 12:37:39 23:59:00 BLESSING ity [facility] 2022-02-13 2022-02-13 [facility] 1.2.840.114 [id number] Univers 12:37:39 23:59:00 Encounter Blessing CARLOS 350.1.13.10 ity of [facility] [place].2.[place] [id number] [facility] [address] [place] 2022-02-08 2022-02-09 [facility] [id number] [place] 06:37:00 18:02:00 Mohammad -[id number] [facility] 2022-02-09 2022-02-09 [facility] 1.2.840.114 [id number] Univers 00:00:00 00:00:00 Dilip TOMASBEAU 350.1.13.10 ity of [place] [id number] [facility] 059 [facility] 2022-02-08 2022-02-08 Patient [facility] 1.2.840.114 [id number] Univers 00:00:00 00:00:00 Secure Msg Jacqui Beaver [place] 350.1.13.10 ity of [place]2.[place] [phone] [facility] 044 [facility] 2022-02-08 2022-02-08 Patient [facility] 1.2.840.114 [id number] Univers 00:00:00 00:00:00 Secure Msg Blessing A HEALTH 350.1.13.10 ity of [place] 4.2.7.2.686 Adrien as BORIS?BLEA [id number] [address] OFFICE [facility] 2022-02-05 2022-02-05 Telephone [facility] 1.2.433.698 [id number] Univers 00:00:00 00:00:00 Blessing A HEALTH 350.1.13.10 i ty of [place] 4.2.7.2.686 Adrien as BORIS?BLEA [id number] [address] OFFICE [facility] 2022-02-02 2022-02-02 Varnishing Unit Operator Lab, Ang - Db [facility] 1.2.840.1 14 [id number] Univers 16:00:00 16:15:00 Visit Farzana Blessing Herr HEALTH 350.1.13.10 ity of [place] 4.2.7.2.686 Adrien as BORIS?BLEA [phone] [facility] ANUM [address] MEDICAL OFFICE [facility] 2022-02-02 2022-02-02 Outpatient [facility] [id number] Univers 15:00:00 15:49:47 BLESSING ity [facility] 2022-02-02 2022-02-02 Office [facility] 1.2.840.114 [id number] Univers 15:00:00 15:49:47 Visit Blessing Herr [facility] 350.1.13.10 i ty of [place] 4.2.7.2.686 Adrien as BORIS?BLEA [id number] [facility] 044 [facility] OFFICE [facility] 2022-02-02 2022-02-02 Outpatient R FARZANA [facility] [id number] Univers 14:30:00 14:30:00 BLESSING ity [facility] 2022-01-19 2022-01-19 Orders Doctor FERRARA 1.2.840.114 [id number] Univers 00:00:00 00:00:00 Only Unassigned, LUIS ARMANDO 350.1.13.10 ity of [place] [facility] 4.2.7.2.686 Adrien as [phone] [address] 2022-01-16 2022-01-16 Isabella Bolton [facility] 1.2.840.114 [id number] Univers 00:00:00 00:00:00 Dilip [place] 350.1.13.10 ity of [place]2.[place].2.[place] O[place] [phone] Or susanna HUITRON 059 [facility] 2022-01-08 2022-01-08 ALEM Hernandez 1.2.840.114 [id number] Univers 00:00:00 00:00:00 Management Ashley BELLAMY 350.1.13.10 ity of [facility] 4.2.7.2.686 Adrien as [phone] [address] 2022-01-06 2022-01-07 Inpatient ER Nick [facility] [id number] [place] 14:59:00 16:35:00 Mariola -[id number] [facility] 2022-01-05 2022-01-05 Emergency ER Leticia [facility] [id number] [place] 21:17:00 22:57:00 Yissel -[id number] [facility] 2022-01-04 2022-01-04 Patient Gómez, [facility] 1.2.840.114 [id number] Univers 00:00:00 00:00:00 Secure Msg Jacqui M HEALTH 350.1.13.10 ity of [place] 4.2.7.2.686 Adrien as BORIS?BLEA [id number] [address] OFFICE [facility] 2022-01-04 2022-01-04 Patient Farzana, [facility] 1.2.840.114 [id number] Univers 00:00:00 00:00:00 Secure Msg Blessing A HEALTH 350.1.13.10 ity of [place] 4.2.7.2.686 Adrien as BORIS?BLEA [phone] [address] OFFICE [facility] 2022-01-02 2022-01-02 Refill [facility] 1.2.840.114 [id number] Univers 00:00:00 00:00:00 Blessing A HEALTH 350.1.13.10 i ty of [place] 4.2.7.2.686 Adrien as BORIS?BLEA [id number] [address] OFFICE [facility] 2022-01-01 2022-01-01 Refill [facility] 1.2.840.114 [id number] Univers 00:00:00 00:00:00 Blessing A HEALTH 350.1.13.10 i ty of [place] 4.2.7.2.686 Adrien as BORIS?BLEA [id number] [address] OFFICE [facility] 2021-12-29 2021-12-29 Refill [facility] 1.2.840.114 [id number] Univers 00:00:00 00:00:00 Qiangjun [place] 350.1.13.10 ity of [facility] [place].2.[place] [phone] [address] 2021-12-25 2021-12-25 Orders Doctor ALEM 1.2.840.114 [id number] Univers 00:00:00 00:00:00 Only Unassigned, LUIS ARMANDO 350.1.13.10 ity of [facility] 4.2.7.2.686 Adrien as [phone] [address] 2021-12-06 2021-12-06 Outpatient [facility] [id number] Univers 11:30:00 11:30:00 BLESSING ity of [facility] 2021-12-01 2021-12-01 Refill [facility] 1.2.840.114 [id number] Univers 00:00:00 00:00:00 Blessing A HEALTH 350.1.13.10 i ty of [place] 4.2.7.2.686 Adrien as BORIS?BLEA [id number] [address] OFFICE [facility] 2021-11-30 2021-11-30 Refmarah BoltonGUADALUPE [facility] 1.2.840.114 [id number] Univers 00:00:00 00:00:00 Qiarichbeau [place] 350.1.13.10 ity of [place] 4.2.7.2.[place] [id number] [address] 2021-11-30 2021-11-30 Telephone [facility] 1.2.598.718 [id number] Univers 00:00:00 00:00:00 Blessing A HEALTH 350.1.13.10 i ty of [facility] 4.2.7.2.686 Adrien as BORIS?BLEA [id number] [address] OFFICE [facility] 2021-11-17 2021-11-17 Telephone [facility] 1.2.059.429 [id number] Univers 00:00:00 00:00:00 Blessing A HEALTH 350.1.13.10 i ty of [place] 4.2.7.2.686 Adrien as BORIS?BLEA [id number] [address] OFFICE [facility] 2021-11-17 2021-11-17 Telephone EderGUADALU[facility] 1.2.840.114 [id number] Univers 00:00:00 00:00:00 Jany HEALTH 350.1.13.10 it y of [place] 4.2.7.2.686 Adrien as BORIS?BLEA [phone] [address] OFFICE [facility] 2021-11-14 2021-11-14 Patient [facility] 1.2.840.114 [id number] Univers 00:00:00 00:00:00 Secure Msg Jacqui Beaver HEALTH 350.1.13.10 ity of [facility] 4.2.7.2.686 Adrien as BORIS?BLEA [phone] [address] 2021-11-14 2021-11-14 Patient [facility] 1.2.840.114 [id number] Univers 00:00:00 00:00:00 Secure Msg Jacqui Beaver HEALTH 350.1.13.10 ity of [place] 4.2.7.2.686 Adrien as BORIS?BLEA [id number] [address] 2021-11-14 2021-11-14 Patient [facility] 1.2.840.114 [id number] Univers 00:00:00 00:00:00 Secure Msg Blessing Herr HEALTH 350.1.13.10 ity of [place] 4.2.7.2.686 Adrien as BORIS?BLEA [id number] [address] 2021-11-08 2021-11-08 Emergency X SINGER [facility] ERT [id number] Univers 07:59:00 08:59:00 TAO cony of [facility] 2021-11-08 2021-11-08 Emergency [facility] 1.2.322.369 [id number] Univers 07:59:00 08:59:00 Tao TERRANCE 350.1.13.10 i ty of [place].2.7.2.[place] ALFR[place] [id number] [address] 2021-11-08 2021-11-08 Telephone [facility] 1.2.025.053 [id number] Univers 00:00:00 00:00:00 Blessing A HEALTH 350.1.13.10 i ty of [place] 4.2.7.2.686 Adrien as BORIS?BLEA [id number] [address] MEDICAL OFFICE [facility] 2021-11-07 2021-11-07 Outpatient R RACHELLE [facility] [id number] Univers 14:30:00 14:30:00 KAY alonso [facility] 2021-11-07 2021-11-07 Outpatient [facility] [id number] Univers 14:30:00 14:30:00 KAY alonos [facility] 2021-11-07 2021-11-07 Outpatient [facility] [id number] Univers 14:30:00 14:30:00 KAY alonso [facility] 2021-11-01 2021-11-01 Out[facility] [id number] Univers 12:30:00 12:30:00 TIERRA [facility] 2021-11-01 2021-11-01 Telephone [facility] 1.2.523.026 [id number] Univers 00:00:00 00:00:00 Blessing Herr HEALTH 350.1.13.10 i ty of [place] 4.2.7.2.686 Adrien as BORIS?BLEA [id number] [address] OFFICE [facility] 2021-10-25 2021-10-25 Outpatient [facility] [id number] Univers 09:30:00 09:48:15 BLESSING itjoie [facility] 2021-10-25 2021-10-25 Office [facility] 1.2.840.114 [id number] Univers 09:30:00 09:48:15 Visit Blessing A HEALTH 350.1.13.10 i ty of [facility] 4.2.7.2.686 Adrien as BORIS?BLEA [phone] Or dicwy KN 044 [facility] OFFICE [facility] 2021-10-19 2021-10-19 Telephone [facility] 1.2.260.597 [id number] Univers 00:00:00 00:00:00 Dilip [facility] 350.1.13.10 [place] [phone] Or dical NAL 059 [facility] 2021-10-18 2021-10-18 Patient [facility] 1.2.840.114 [id number] Univers 00:00:00 00:00:00 Secure Msg Jacqui Beaver HEALTH 350.1.13.10 ity of [place] 4.2.7.2.686 Adrien as BORIS?BLEA [id number] [address] 2021-09-28 2021-09-28 Outpatient R ABILIO [facility] [id number] Univers 15:30:00 15:30:00 [facility] 2021-09-28 2021-09-28 [facility] [id number] Univers 15:30:00 15:30:00 [facility] 2021-09-27 2021-09-27 Outpatient [facility] [id number] Univers 10:40:00 10:40:00 PRINCESS [facility] 2021-09-27 2021-09-27 Telephone [facility] 1.2.960.824 [id number] Univers 00:00:00 00:00:00 Blessing A HEALTH 350.1.13.10 i ty of [place] 4.2.7.2.686 Adrien as BORIS?BLEA [id number] [address] OFFICE [facility] 2021-09-26 2021-09-26 Outpatient R BRENDEN [facility] [id number] Univers 14:00:00 14:00:00 SHANNAN [facility] 2021-09-21 2021-09-21 [facility] BLADIMIR Crespo 1.2.840.114 9 [id number] Univers 15:19:00 23:59:00 Encounter [place] 350.1.13.10 ity [facility] 4.2.7.2.686 Adrien as [id number] [address] 2021-09-21 2021-09-21 Outpatient R VONNIE [facility] ACO [id number] Univers 00:00:00 23:59:00 CASS [facility] 2021-09-20 2021-09-20 Varnishing Unit Operator Lab, Ang - Db [facility] 1.2.840.1 14 [id number] Univers 11:00:00 11:15:00 Visit Farzana Blessing Herr HEALTH 350.1.13.10 ity of [place] [address].2.7.2.686 Adrien as BORIS?BLEA [phone] [facility] [address] MEDICAL OFFICE [facility] 2021-09-20 2021-09-20 Outpatient [facility] [id number] Univers 11:00:00 11:00:00 BLESSING calderónFoundation [facility] 2021-09-20 2021-09-20 Office [facility] 1..840.114 [id number] Univers 10:30:00 11:00:00 Visit Blessing Herr HEALTH 350.1.13.10 i ty of [place] [address].2.7.2.686 Adrien as BORIS?BLEA [id number] [address] MEDICAL OFFICE [facility] 2021-09-20 2021-09-20 Outpatient [facility] [id number] Univers 10:30:00 10:30:00 BLESSING [facility] 2021-09-20 2021-09-20 Telephone [facility] ..[id number] Univers 00:00:00 00:00:00 Blessing Herr HEALTH 350.1.13.10 i ty of [place] 4.2.7.2.686 Adrien as BORIS?BLEA [id number] [address] MEDICAL OFFICE [facility] 2021-09-18 2021-09-18 Telephone [facility] 1.2.142.098 [id number] Univers 00:00:00 00:00:00 Dilip CARLOS 350.1.13.10 ity of [place] [id number] [place] [id number] [facility] 2021-09-15 2021-09-15 Patient [facility] 1.2.840.114 [id number] Univers 00:00:00 00:00:00 Secure Msg Jacqui Beaver [facility] 350.1.13.10 ity of [facility] 4.2.7.2.686 Adrien as BORIS?BLEA [id number] [facility] 044 [facility] OFFICE [facility] 2021-09-14 2021-09-14 Outpatient R CARLO [facility] [id number] Univers 13:42:35 23:59:00 TIERRA [facility] 2021-09-14 2021-09-14 Outpatient R HOANG [facility] [id number] Univers 15:00:00 15:27:51 DILIP donnelly o f [facility] 2021-09-14 2021-09-14 Office [facility] 1.2.840.114 [id number] Univers 15:00:00 15:27:51 Visit Dilip CARLOS 350.1.13.10 ity of [facility] 4.2.7.2.[place] [facility] [phone] [address] 2021-09-14 2021-09-14 Outpatient R HOANG [facility] [id number] Univers 15:00:00 15:00:00 DILIP donnelly o f [facility] 2021-09-14 2021-09-14 Outpatient R CARLO [facility] [id number] Univers 14:00:00 14:00:00 TIERRA [facility] 2021-09-14 2021-09-14 Varnishing Unit Operator Therapist, Adc Respiratory [facility] 1.2.840.114 [id number] Univers 12:30:00 12:45:00 Visit Desean Gay [place] 350.1.13. 10 ity of [place]2.7.2.[place] [id number] [place] [id number] [place] 2021-09-14 2021-09-14 Outpatient R RICCARDO, [facility] [id number] Univers 12:30:00 12:30:00 DESEAN [facility] 2021 2021 Outpatient R DEANN, [facility] [id number] Univers 13:40:00 13:40:00 PRINCESS [facility] 2021-09-06 2021-09-06 [facility] [id number] Univers 00:00:00 00:00:00 Blessing [address] [facility] 350.1.13.10 i ty of [place] 4.2.7.2.686 Adrien as BORIS?BLEA [phone] Or susanna [facility] [address] [place] MEDICAL OFFICE BUILDING 2021-09-05 2021-09-05 [facility] [id number] Univers 13:30:00 15:06:45 KAY alonso [facility] 2021-09-05 2021-09-05 Office [facility] 1.2.840.114 [id number] Univers 13:30:00 15:06:45 Visit Kay BARR 350.1.13.10 [place] [id number] [facility] AND JAIRO [address] [place] [facility] 2021-09-05 2021-09-05 Outpatient R RACHELLE [facility] [id number] Univers 13:30:00 13:30:00 KAY alonso [facility] 2021-09-05 2021-09-05 Outpatient R RACHELLE [facility] [id number] Univers 13:30:00 13:30:00 KAY alonso [facility] 2021-09-04 2021-09-04 Office MELIZA Morales [id number] Univers 08:00:00 08:53:32 Visit Arely Y 350.1.13.10 i ty of [place] 4.2.7.2.686 Adrien as BANK [phone] [facility] BLDG. [address] [place] 2021-09-04 2021-09-04 Outpatient R CARMEN, [facility] [id number] Univers 08:00:00 08:53:32 ARELY ity o f [facility] 2021-09-04 2021-09-04 Outpatient R CRAMEN, [facility] [id number] Univers 08:00:00 08:53:32 ARELY ity o f [facility] 2021-09-04 2021-09-04 Outpatient R CARMEN, [facility] [id number] Univers 08:00:00 08:00:00 ARELY ity o f [facility] 2021-09-04 2021-09-04 Outpatient R CARMEN, [facility] [id number] Univers 08:00:00 08:00:00 ARELY ity o [facility] 2021-08-31 2021-08-31 [facility] [id number] Univers 08:07:43 23:59:00 Encounter Blessing [place] 350.1.13.10 ity of [facility] 4.2.7.2.686 [facility] [id number] [address] 2021-08-31 2021-08-31 [facility] [id number] Univers 08:06:25 08:06:25 Encounter Sindy [place] 350.1.13.10 ity of [facility] 4.2.7.2.686 [facility] [id number] [address] 2021-08-31 2021-08-31 [facility] 1.2.840.114 [id number] Univers 08:06:11 08:06:11 Encounter Sindy [place] 350.1.13.10 ity of [place] 4.2.7.2.686 [facility] [id number] [address] 2021-08-31 2021-08-31 Outpatient R SINDY ONEILL [facility] [id number] Univers 08:06:11 08:06:11 SINDY ONEILL [facility] 2021-08-31 2021-08-31 Outpatient R SINDY ONEILL [facility] [id number] Univers 08:06:11 08:06:11 SINDY ONEILL [facility] 2021-08-31 2021-08-31 [facility] Mai [facility] 1.2.840.114 [id number] Univers 08:04:49 08:05:00 Encounter Sindy CARLOS 350.1.13.10 ity [facility] 4.2.7.2.686 [facility] [id number] [facility] [address] 2021-08-31 2021-08-31 Outpatient R SINDY ONEILL [facility] [id number] Univers 08:04:32 08:05:00 SINDY ONEILL [facility] 2021-08-31 2021-08-31 [facility] 1.2.840.114 [id number] Univers 08:04:32 08:05:00 Encounter Sindy CARLOS 350.1.13.10 ity [facility] 4.2.7.2.686 [facility] [id number] [facility] [address] 2021-08-31 2021-08-31 Outpatient R SINDY ONEILL [facility] [id number] Univers 00:00:00 00:00:00 SINDY ONEILL [facility] 2021-08-31 2021-08-31 Outpatient R FARZANA [facility] [id number] Univers 00:00:00 00:00:00 BLESSING [facility] 2021-08-22 2021-08-22 Orders Doctor FERRARA 1.2.840.114 [id number] Univers 00:00:00 00:00:00 Only Unassigned, LUIS ARMANDO 350.1.13.10 ity of [facility] 4.2.7.2.686 [facility] [id number] [facility] [address] 2021-08-21 2021-08-21 [facility] [id number] Univers 13:00:00 14:01:28 TIERRA [facility] 2021-08-21 2021-08-21 Office [facility] 1.2.840.114 [id number] Univers 13:00:00 14:01:28 Visit Tierra HEALTH 350.1.13.10 it y of [place] 4.2.7.2.686 [place] [id number] [address] OFFICE [facility] 2021-08-21 2021-08-21 Outpatient R CARLO, [facility] [id number] Univers 13:00:00 14:01:28 TIERRA ity of [facility] 2021-08-21 2021-08-21 Office Matos, [facility] 1.2.840.114 [id number] Univers 13:00:00 14:01:28 Visit Tierra HEALTH 350.1.13.10 it y of [place] 4.2.7.2.686 [place] [id number] [address] OFFICE [facility] 2021-08-21 2021-08-21 Telephone Farzana, [facility] 1.2.963.104 [id number] Univers 00:00:00 00:00:00 Blessing A HEALTH 350.1.13.10 i ty of [place] 4.2.7.2.686 Adrien as BORIS?BLEA [id number] [address] OFFICE [facility] 2021-08-21 2021-08-21 Telephone Farzana, [facility] 1.2.491.889 [id number] Univers 00:00:00 00:00:00 Blessing A HEALTH 350.1.13.10 i ty of [place] 4.2.7.2.686 Adrien as BORIS?BLEA [id number] [address] OFFICE [facility] 2021-08-21 2021-08-21 Telephone Matos, [facility] 1.2.986.425 [id number] Univers 00:00:00 00:00:00 Tierra HEALTH 350.1.13.10 it y of [place] 4.2.7.2.686 [place] [id number] [address] OFFICE BUILDING 2021-08-21 2021-08-21 Telephone Matos, [facility] 1.2.986.297 [id number] Univers 00:00:00 00:00:00 Tierra HEALTH 350.1.13.10 it y of [place] 4.2.7.2.686 [place] [id number] [facility] [address] OFFICE BUILDING 2021-08-21 2021-08-21 Telephone Farzana, [facility] 1.2.231.455 [id number] Univers 00:00:00 00:00:00 Blessing A HEALTH 350.1.13.10 i ty of [place] 4.2.7.2.686 Adrien as BORIS?BLEA [id number] [address] OFFICE [facility] 2021-08-21 2021-08-21 Telephone [facility] 1.2.449.168 [id number] Univers 00:00:00 00:00:00 Alfred HEALTH 350.1.13.10 it y of [place] 4.2.7.2.686 Adrien as BORIS?BLEA [id number] [address] OFFICE [facility] 2021-08-21 2021-08-21 Patient Doctor [facility] 1.2.840.114 [id number] Univers 00:00:00 00:00:00 Secure Msg Unassigned, HEALTH 350.1.13.10 ity of [place] 4.2.7.2.686 Adrien as BORIS?BLEA [id number] [address] OFFICE [facility] 2021-08-18 2021-08-18 Outpatient Sofia MORALES [facility] [id number] Univers 09:15:00 09:15:00 ARELYSILVIA donnelly o f [facility] 2021-08-18 2021-08-18 Outpatient Sofia MORALES [facility] [id number] Univers 09:15:00 09:15:00 ARELYSILVIA donnelly o f [facility] 2021-08-18 2021-08-18 Telephone [facility] 1.2.293.244 [id number] Univers 00:00:00 00:00:00 Blessing A HEALTH 350.1.13.10 i ty of [place] 4.2.7.2.686 Adrien as BORIS?BLEA [id number] [address] OFFICE [facility] 2021-08-17 2021-08-17 Outpatient R GRISELDA OLVERAORTito [facility] [id number] Univers 13:00:00 13:00:00 TOBI OLVERA joie [facility] 2021-08-17 2021-08-17 Outpatient R [facility] [id number] Univers 13:00:00 13:00:00 GRISELDA OLVERAORTito joie [facility] 2021-08-17 2021-08-17 [facility] [id number] Univers 13:00:00 13:00:00 WADE [facility] 2021-08-17 2021-08-17 Telephone [facility] 1.2.145.956 [id number] Univers 00:00:00 00:00:00 Alfred HEALTH 350.1.13.10 it y of [place] 4.2.7.2.686 Adrien as BORIS?BLEA [id number] [address] OFFICE [facility] 2021-08-17 2021-08-17 Refill [facility] 1.2.840.114 [id number] Univers 00:00:00 00:00:00 Blessing A HEALTH 350.1.13.10 i ty of [place] 4.2.7.2.686 Adrien as BORIS?BLEA [id number] [address] 2021-08-16 2021-08-16 Outpatient Sofia MATOS [facility] [id number] Univers 12:00:00 12:00:00 TIERRA [facility] 2021-08-16 2021-08-16 Outpatient R CARLO [facility] [id number] Univers 12:00:00 12:00:00 TIERRA [facility] 2021-08-16 2021-08-16 Outpatient R CARLO [facility] [id number] Univers 12:00:00 12:00:00 [facility] 2021-08-16 2021-08-16 Telephone [facility] 1.2.840.114 [id number] Univers 00:00:00 00:00:00 Soha CARLOS 350.1.13.10 i ty of [place].2.7.2.[place] [id number] Or dicbrian HUITRON 188 [facility] 2021-08-14 2021-08-14 Outpatient R SINDY ONEILL [facility] [id number] Univers 15:18:48 23:59:00 SINDY ONEILL [facility] 2021-08-14 2021-08-14 Outpatient R SINDY ONEILL [facility] [id number] Univers 15:18:48 23:59:00 ISNDY ONEILL [facility] 2021-08-10 2021-08-10 [facility] [id number] Univers 15:00:00 15:45:32 SOHA joie [facility] 2021-08-10 2021-08-10 Office [facility] 1.2.901.967 [id number] Univers 15:00:00 15:45:32 Visit Soha CARLOS 350.1.13.10 i ty of [place]2.7.[place] [id number] Or susanna HUITRON [address] [place] [address] 2021-08-10 2021-08-10 Out[facility] [id number] Univers 15:00:00 15:45:32 SOHA joie [facility] 2021-08-10 2021-08-10 Out[facility] [id number] Univers 15:00:00 15:45:32 SOHA donnelly [facility] 2021-08-10 2021-08-10 Out[facility] [id number] Univers 15:00:00 15:00:00 SOHA [facility] 2021-08-09 2021-08-09 Isabella [facility] 1.2.840.114 [id number] Univers 00:00:00 00:00:00 Kay BARR 350.1.13.10 [place].7.[place] [id number] [address] DIABETES CLINIC 2021-08-09 2021-08-09 Refill Rachelle [facility] 1.2.840.114 [id number] Univers 00:00:00 00:00:00 Kay Francis MULTISPEC 350.1.13.10 ity of [place] [id number] [address] DIABETES CLINIC 2021-08-09 2021-08-09 Refill Doctor [facility] 1.2.840.114 [id number] Univers 00:00:00 00:00:00 Unassigned, PRIMARY 350.1.13.10 ity of [place]2.[place] [id number] [address] 2021-08-04 2021-08-04 Patient Farzana, [facility] 1.2.840.114 [id number] Univers 00:00:00 00:00:00 Secure Msg Blessing A HEALTH 350.1.13.10 ity of [place] 4.2.7.2.686 Adrien as BORIS?BLEA [id number] [address] MEDICAL OFFICE [facility] 2021-08-04 2021-08-04 Patient Farzana, [facility] 1.2.840.114 [id number] Univers 00:00:00 00:00:00 Secure Msg Blessing A HEALTH 350.1.13.10 ity of [place] 4.2.7.2.686 Adrien as BORIS?BLEA [id number] [address] MEDICAL OFFICE [facility] 2021-08-02 2021-08-02 Office MELIZA Oneill 1.2.065.586 [id number] Univers 11:30:00 11:30:00 Visit Sindy Y HEALTH 350.1.13.10 i ty of [place] [id number] [address] 2021-08-02 2021-08-02 Outpatient R SINDY ONEILL [facility] [id number] Univers 11:30:00 11:24:07 SINDY ONEILL [facility] 2021-07-28 2021-07-28 Outpatient R SINDY ONEILL [facility] [id number] Univers 13:00:00 13:00:00 SINDY ONEILL [facility] 2021-07-26 2021-07-26 Out[facility] [id number] Univers 15:20:22 23:59:00 BLESSING donnelly [facility] 2021-07-26 2021-07-26 [facility] 1.2.840.114 [id number] Univers 15:00:00 23:59:00 Encounter Blessing CARLOS 350.1.13.10 ity [facility] 4.2.7.2.686 [facility] [id number] [facility] [address] 2021-07-21 2021-07-21 Outpatient [facility] [id number] Univers 14:30:00 15:16:04 BLESSING joie [facility] 2021-07-19 2021-07-19 Outpatient [facility] [id number] Univers 09:00:00 09:00:00 BLESSING donnelly [facility] 2021-07-14 2021-07-14 Outpatient Sofia [facility] [id number] Univers 10:00:00 11:07:33 BLESSING [facility] 2021-07-14 2021-07-14 Orders Doctor FERRARA 1.2.840.114 [id number] Univers 00:00:00 00:00:00 Only Unassigned, LUIS ARMANDO 350.1.13.10 ity [facility] 4.2.7.2.686 [facility] [id number] [facility] [address] 2021-07-12 2021-07-12 Outpatient R [facility] [id number] Univers 10:00:00 10:00:00 JUVE donnelly [facility] 2021-02-12 2021-02-12 Outpatient PRIV PRIV [id number] 1-2 [facility] 00:00:00 00:00:00 [id number] Medica l 2021-02-12 2021-02-12 Outpatient PRIV PRIV [id number] 1-2 [facility] 00:00:00 00:00:00 [id number] Medica l 2020-12-06 2020-12-06 Outpatient PERLA BLOCK [id number] Perla 10:45:00 10:45:00 ELLIOT obrien 2020-07-30 2020-07-30 Laboratory Lab, Adc Fam Pob I [facility] 1.2. 840.114 [id number] Univers 16:14:44 16:34:44 [facility] 350.1.13.10 ity [facility] 4.2.7.2.686 Adrien as Professio [phone] [place] d[place] [address] [address] 2020-07-30 2020-07-30 Outpatient R PALOMO [facility] [id number] Univers 16:00:00 16:00:00 [facility] 2020-07-28 2020-07-28 Patient Abdon [facility] 1.2.840.114 [id number] Univers 00:00:00 00:00:00 Outreach Joel PRIMARY 350.1.13.10 i ty [facility] [place].2.7.2.[place] [id number] Me dical [address] 2020-05-04 2020-05-04 Emergency ER OWO, TOKS [facility] [id number] [place] 16:03:00 18:07:00 -[id number] [facility] 2020-05-01 2020-05-01 Emergency ER SAUNDRAANNONE, [facility] [id number] [place] 14:12:00 18:16:00 BAO -[id number] [facility] 2020-04-20 2020-04-21 Emergency ER MEDINA, [facility] [id number] [place] 22:53:00 00:07:00 WASIM -[id number] [facility] 2020-04-04 2020-04-04 Refill Jesse [facility] 1.2.840.114 [id number] Univers 00:00:00 00:00:00 Leandro Braeden PRIMARY 350.1.13.10 it[place] of [place].2.[place] [id number] Me dical [address] 2020-04-04 2020-04-04 Isabella [facility] 1.2.840.114 [id number] 00:00:00 00:00:00 Leandro Deras [facility] 350.1.13.10 [facility].2.7.2.686 ALONSO [id number] [facility] 2020-03-18 2020-03-18 Outpatient FERGUSON_JO MEHOP MEHOP [address] [place] 00:00:00 00:00:00 HN 1106 [facility] 2020-03-14 2020-03-14 Outpatient FERGUSON_JO MEHOP MEHOP [address] [place] 04:45:00 04:45:00 HN 1102 [facility] 2020-02-29 2020-02-29 Outpatient Sofia MORALES, [facility] [id number] Univers 08:45:00 08:45:00 ARELY pickering [facility] 2020-02-26 2020-02-26 Emergency ER OWO, TOKS [facility] [id number] [place] 10:15:00 12:20:00 -[id number] [facility] 2020-02-26 2020-02-26 Outpatient FERGUSON_JO MEHOP MEHOP [address] [place] 09:48:00 09:48:00 HN 1016 [facility] 2020-02-25 2020-02-25 Outpatient FERGUSON_JO MEHOP MEHOP [address] [place] 01:22:00 01:22:00 HN 1015 [facility] 2020-02-19 2020-02-20 Emergency ER AVALOS, [facility] [id number] [place] 21:17:00 03:38:00 DOMINGO -[id number] [facility] 2020-02-17 2020-02-17 Outpatient SEAN GUILLERMO [facility] [id number] Univers 11:00:00 11:00:00 cony [facility] 2020-02-10 2020-02-10 Emergency ER OWO, TOKS [facility] [id number] [place] 16:26:00 19:59:00 -[id number] [facility] 2019-12-31 2019-12-31 Emergency ER OWO, TOKS [facility] [id number] [place] 17:19:00 19:23:00 -[id number] [facility] 2019-11-26 2019-11-26 Emergency ER SAIFI, [facility] [id number] [place] 09:27:00 11:17:00 [id number] [facility] 2019-11-20 2019-11-20 Telephone [facility] 1.2.120.091 [id number] [facility] 00:00:00 00:00:00 Leandro Dreas PRIMARY 350.1.13.10 it[place] of [place] [id number] [address] 2019-11-20 2019-11-20 Telephone [facility] 1.2.516.607 [id number] 00:00:00 00:00:00 Leandro Deras PRIMARY 350.1.13.10 CARE 4.2.7.2.686 PAVILLION [id number] [facility] 2019-11-13 2019-11-13 [facility] 1.2.456.240 [id number] [facility] 00:00:00 00:00:00 Leandro Dersa PRIMARY 350.1.13.10 it[place] of [place] 4[place] [id number] [address] 2019-11-13 2019-11-13 [facility] 1.2.666.716 [id number] 00:00:00 00:00:00 Leandro Deras PRIMARY 350.1.13.10 CARE 4.2.7.2.686 PAVILLION [id number] [facility] 2019-10-28 2019-10-28 Outpatient R UNKNOWN, [facility] [id number] Univers 10:40:00 10:40:00 ATTENDING ity of [facility] 2019-09-29 2019-09-29 Patient Doctor [facility] 1.2.840.114 [id number] Univers 00:00:00 00:00:00 Secure Msg Unassigned, PRIMARY 350.1.13.10 ity of [place] 4.2.7.2.[place] [id number] Or dical [address] 2019-09-29 2019-09-29 Patient Doctor [facility] 1.2.840.114 [id number] 00:00:00 00:00:00 Secure Msg Unassigned, PRIMARY 350.1.13.10 [place] CARE 4.2.7.2.686 PAVILLION [id number] 390 2019-09-15 2019-09-15 Telephone Jesse [facility] 1.2.491.229 [id number] Univers 00:00:00 00:00:00 Leandro Deras PRIMARY 350.1.13.10 [place] of [place] 4[place]2.[place].2.[place] [id number] Or dical [address] 2019-09-15 2019-09-15 Telephone Jesse [facility] 1.2.494.922 [id number] 00:00:00 00:00:00 Leandro Deras PRIMARY 350.1.13.10 CARE 4.2.7.2.686 PAVILLION [id number] 389 2019-09-10 2019-09-10 Varnishing Unit Operator Vt-Lab [facility] 1.2.840.114 [id number] Univers 12:34:34 12:44:34 Visit Samir Conner MULTISPEC 350.1.13.10 it[place] of [place].2.[place] [id number] [facility] AND [address] DIABETES CLINIC 2019-09-10 2019-09-10 Varnishing Unit Operator Vt-Lab [facility] 1.2.840.114 [id number] 12:34:34 12:44:34 Visit MULTISPEC 350.1.13.10 IALTY 4.2.7.2.686 CENTER [id number] [place] [address] DIABETES CLINIC 2019-09-10 2019-09-10 Outpatient R SAMIR CONNER [facility] [id number] Univers 12:40:00 12:40:00 ity of [facility] 2019-08-18 2019-08-18 Patient Jesse [facility] 1.2.840.114 [id number] Univers 00:00:00 00:00:00 Secure Msg Leandro Deras PRIMARY 350.1.13.10 it[place] of [place] 4.2.7.2.[place] [id number] Or dical [address] 2019-08-18 2019-08-18 Patient Jesse, [facility] 1.2.840.114 [id number] 00:00:00 00:00:00 Secure Msg Leandro Deras PRIMARY 350.1.13.10 CARE 4.2.7.2.686 PAVILLION [id number] 390 2019-08-17 2019-08-17 Patient Doctor [facility] 1.2.840.114 [id number] Univers 00:00:00 00:00:00 Secure Msg Unassigned, PRIMARY 350.1.13.10 ity of [place] CARE 4.2.7.2.[place] [id number] Or dical [address] 2019-08-17 2019-08-17 Patient Doctor [facility] 1.2.840.114 [id number] 00:00:00 00:00:00 Secure Msg Unassigned, PRIMARY 350.1.13.10 [place] CARE 4.2.7.2.686 PAVILLION [id number] 389 2019-08-14 2019-08-14 Outpatient R UNKNOWN, [facility] [id number] Univers 12:10:00 12:10:00 ATTENDING ity of [facility] 2019-08-14 2019-08-14 Varnishing Unit Operator Pcp-Lab [facility] 1.2.840.114 [id number] Univers 11:02:02 11:12:02 Visit Unknown, Attending PRIMARY 350.1.13.10 ity of Samir Conenr CARE 4.2.7.2.686 [place] PAVILLION [id number] Or dical [address] 2019-08-14 2019-08-14 Varnishing Unit Operator Pcp-Lab [facility] 1.2.840.114 [id number] 11:02:02 11:12:02 Visit PRIMARY 350.1.13.10 CARE 4.2.7.2.686 PAVILLION [id number] 366 2019-08-12 2019-08-12 Telemedici Salvatore Ambriz [facility] 1.2.840 .114 [id number] Univers 14:32:03 15:02:03 ne Visit Unknown, Attending PRIMARY 350.1.13.1 0 it[place] of [place] 4.2.7.2.[place] [id number] [facility] [address] 2019-08-12 2019-08-12 [facility]medici [facility] 1.2.840.114 [id number] 14:32:03 15:02:03 ne Visit Salvatore PRIMARY 350.1.13.10 CARE 4.2.7.2.686 PAVILLION [id number] [facility] 2019-08-12 2019-08-12 Outpatient R CARLOZ, [facility] [id number] Univers 14:50:00 14:50:00 ATTENDING ity of [facility] 2019-08-12 2019-08-12 Telephone [facility] 1.2.375.427 [id number] 4556 [facility] 00:00:00 00:00:00 Leandro Deras PRIMARY 350.1.13.10 it[place] of [place] 4[place].2.[place] [phone] [address] 2019-08-12 2019-08-12 [facility]phone [facility] 1.2.060.101 [id number] 00:00:00 00:00:00 Leandro Deras PRIMARY 350.1.13.10 CARE 4.2.7.2.686 PAVILLION [id number] 389 2019-08-07 2019-08-10 Telemedici [facility] 1.2.840.114 [id number] Univers 08:31:45 15:00:40 ne Visit Kay DARBYPEC 350.1.13.10 ity of [place] [id number] [facility] AND JAIRO [address] [place] [address] DIABETES [facility] 2019-08-07 2019-08-10 Telemedici [facility] 1.2.840.114 [id number] 08:31:45 15:00:40 ne Visit Kay DARBYPEC 350.1.13.10 IALTY 4.2.7.2.686 CENTER [id number] AND JAIRO [facility] DIABETES CLINIC 2019-08-07 2019-08-07 Outpatient [facility] [id number] Univers 10:30:00 10:30:00 KAY donnelly o james [facility] 2019-08-04 2019-08-04 Outpatient R BRIAN [facility] [id number] Univers 11:00:00 11:00:00 LIU ity of MAME [facility] 2019-08-04 2019-08-04 Telemedici Trayros Johan [facility] 1.2.84 0.114 [id number] Univers 07:35:13 08:05:13 ne Visit Trell Villagomez [facility] 350.1.13 .10 ity of Brian CooleyAmaury blackwellroberto carlosseamus CLINICS 4.2.7.2.68 6 [place] [id number] [facility] [address] 2019-08-04 2019-08-04 Telephone MAYTE AlexanderIT 1.2.840.114 [id number] Univers 00:00:00 00:00:00 Johan HEALTH 350.1.13.10 i ty of CL[place] [id number] [facility] [address] 2019-08-04 2019-08-04 Orders Doctor ALEM 1.2.840.114 [id number] Univers 00:00:00 00:00:00 Only Unassigned, LUIS ARMANDO 350.1.13.10 ity of [place] [facility] 4.2.7.2.686 Adrien as [phone] [facility] [address] 2019-08-03 2019-08-03 [facility] 1.2.840.114 [id number] Univers 00:00:00 00:00:00 Mostafa MULTISPEC 350.1.13.10 ity of [place] MARI 4.2.7.2.686 [facility] [phone] [facility] AND JAIRO [address] DIABETES CLINIC 2019-08-03 2019-08-03 [facility] 1.2.840.114 [id number] Univers 00:00:00 00:00:00 Mostafa MULTISPEC 350.1.13.10 ity of [place] MARI 4.2.7.2.686 [facility] [id number] [facility] AND JAIRO 9 [place] [facility]ES [facility] 2019-08-03 2019-08-03 [facility]phone [facility] [id number] [id number] Univers 00:00:00 00:00:00 Leandro Deras PRIMARY 350.1.13.10 [place] [id number] Or dicbrian [address] 2019-08-03 2019-08-03 Telephone [facility] 1.2.840.114 [id number] Univers 00:00:00 00:00:00 Kay Francis MEHNAZPEC 350.1.13.10 ity of [place] [id number] [facility] AND [address] DIABETES [facility] 2019-07-20 2019-07-20 Emergency ER MERRICK, [facility] [id number] [place] 20:16:00 21:34:00 SHANNEN -[id number] [facility] 2019-06-23 2019-06-23 Emergency ER JAZMIN, [facility] [id number] [place] 15:06:00 17:30:00 ALYSSA -[id number] [facility] 2019-06-05 2019-06-05 Emergency ER RUPERT, [facility] [id number] [place] 16:39:00 19:48:00 BAO -[id number] [facility] 2019-06-05 2019-06-05 Telephone [facility] 1.2.840.11 [id number] Univers 00:00:00 00:00:00 henok Juan Y 350.1.13.10 ity of NATIONAL 4.2.7.2.686 Adrien as BANK [phone] [facility] BLDG. [address] 2019-05-19 2019-05-19 Clinic [facility] 1.2.840.114 [id number] Univers 00:00:00 00:00:00 Assessment henok, Juan Y 350.1.13.10 ity of NATIONAL 4.2.7.2.686 Adrien [id number] [address] 2019-03-05 2019-03-05 Outpatient Young_J [facility] G [id number] [address] [place] 03:44:00 03:44:00 024 [facility] 2019-03-01 2019-03-01 Emergency ER TRELL [facility] [id number] [place] 15:15:00 18:55:00 PATI -[id number] [facility] 2019-01-26 2019-01-26 Telephone Jesse [facility] 1.2.837.225 [id number] Univers 00:00:00 00:00:00 Leandro Braeden PRIMARY 350.1.13.10 ity of CARE [place]2.[place] [facility] [phone] Or dical [address] 2019-01-21 2019-01-21 Emergency ER RUPERT, [facility] [id number] [place] 17:43:00 20:38:00 BAO -[id number] [facility] 2018-12-30 2018-12-30 Office Elver Cyr [facility] 1.2 .840.114 [id number] Univers 14:33:52 16:12:24 Visit Unknown, Attending PRIMARY 350.1.13.10 ity of Sean Metz [facility] 4.2.7.2.686 [place] PAV[facility]UID[facility] [phone] Or dical [address] 2018-12-12 2018-12-12 Orders Doctor ALEM 1.2.840.114 [id number] Univers 00:00:00 00:00:00 Only Unassigned, LUIS ARMANDO 350.1.13.10 ity of [place] [facility] 4.2.7.2.686 Adrien as [phone] [facility] 009 Branch 2018-12-05 2018-12-05 Transition Blaine Longo 1.2.840.114 [id number] Univers 00:00:00 00:00:00 of Care Nicky Hicks 350.1.13.10 [place] [phone] [facility] [address] 2018-12-02 2018-12-04 Hospital Dante Maryoli Avalso 1.2.840.114 [id number] Univers 00:29:00 19:45:00 Encounter Mikey Marquezy 35 0.1.13.10 ity of Emiliano Cheung [facility] 4.2.7.2.686 [place] [phone] [facility] 090 Branch 2018-12-04 2018-12-04 Telephone REBA Pino 1.2.840.114 [id number] Univers 00:00:00 00:00:00 [facility] 350.1.13.10 it y of Silas Rodriguez [place] 4.2.7.2.686 [facility] [phone] [facility] Primary & 059 [address] Specialty Care 2018-12-02 2018-12-02 Orders Doctor ALEM 1.2.840.114 [id number] Univers 00:00:00 00:00:00 Only Unassigned, LUIS ARMANDO 350.1.13.10 ity of [place] [facility] 4.2.7.2.686 Adrien as [phone] [facility] 009 [address] 2018-11-29 2018-12-01 Inpatient ER Elina, [facility] MED [id number] [address] [place] 19:48:00 23:00:00 Sean -[id number] [facility] 2018-11-28 2018-11-29 Emergency ER MERRICK [facility] [id number] [place] 20:53:00 01:14:00 SHANNEN -[id number] [facility] 2018-04-03 2018-04-03 Emergency ER JAZMIN [facility] [id number] [place] 19:12:00 21:48:00 ALYSSA -[id number] [facility] 2017-07-31 2017-07-31 Emergency E [facility] MED [id number] [facility] 19:16:00 19:16:00 [facility] 2017-05-30 2017-05-30 AURELIA [facility] 3 [id number] ID 13:00:00 13:00:00 t; Jinny FONTAINE Ph greg Reid M.D. 2017-04-23 2017-04-23 AURELIA Knutson UTP [id number] [place] 09:15:00 09:15:00 t; Jinny FONTAINE Ph greg Reid M.D. 2013-08-09 2013-08-09 Emergency ER BA, RICHARD [facility] [id number] [place] 19:09:00 22:27:00 -[id number] [facility] 2013-05-11 2013-05-11 Emergency ER MEDINA, [facility] [id number] [address] [place] 02:30:00 05:46:00 WAS -[id number] [facility] 2013-04-18 2013-04-18 Emergency ER UGORJI, [facility] [id number] [address] [place] 01:08:00 04:45:00 CLEDARRICK -[id number] [facility] 2013-03-26 2013-03-26 Outpatient EL D'ANN, [facility] [id number] [place] 09:38:00 09:38:00 [id number] [facility] 2013-03-09 2013-03-09 Emergency ER DONOVAN, [facility] [id number] [place] 19:03:00 20:05:00 MIKAELA -[id number] [facility] 2012-12-04 2012-12-06 Inpatient ER D'ANN, [facility] [id number] [address] [place] 21:36:00 14:11:00 MATT -[id number] [facility] 2012-12-01 2012-12-02 Emergency ER BA, RICHARD [facility] [id number] [place] 22:29:00 01:22:00 -[id number] [facility] 2012-11-27 2012-11-27 Outpatient UR TARSHA, [facility] [id number] [place] 10:49:00 10:49:00 STEVEN -[id number] [facility] 2012-11-18 2012-11-18 Emergency ER UGORJI, [facility] [id number] [address] [place] 12:50:00 15:39:00 CLEDARRICK -[id number] [facility] 2012-08-01 2012-08-01 Emergency ER UGORJI, [facility] [id number] [address] [place] 17:26:00 20:49:00 CLEDARRICK -[id number] [facility] 2012-07-19 2012-07-19 Emergency ER JERSEY, [facility] [id number] [address] [place] 14:19:00 15:44:00 [facility] -[id number] [facility] 2012-07-10 2012-07-10 Outpatient EL Young, [facility] [id number] [place] 07:04:00 07:04:00 Talat -[id number] [facility] 2012-06-06 2012-06-06 Outpatient EL D'ANN, [facility] [id number] [place] 13:17:00 13:17:00 MATT -[id number] [facility] 2012-06-05 2012-06-06 Emergency ER UGORJI, [facility] [id number] [address] [place] 20:38:00 02:50:00 JUMANA -[id number] [facility] 2012-05-28 2012-06-01 Inpatient EL D'ANN, [facility] [id number] [address] [place] 17:00:00 10:27:00 MATT -[id number] [facility] 2012-03-09 2012-03-09 Emergency ER Bain, [facility] [id number] [place] 21:25:00 22:48:00 Driss -[id number] [facility] 2012-02-29 2012-02-29 Outpatient EL D'ANN, [facility] [id number] [place] 15:16:00 15:16:00 MATT -[id number] [facility] 2012-01-12 2012-01-12 Emergency ER UGORJI, [facility] [id number] [address] [place] 19:42:00 23:53:00 [facility][id number] [facility] 2011-08-14 2011-08-14 Outpatient EL D'ANN, [facility] [id number] [place] 11:58:00 11:58:00 MATT -[id number] [facility] 2011-04-26 2011-04-26 Outpatient EL D'ANN, [facility] [id number] [place] 14:29:00 14:29:00 MATT -[id number] [facility] 2010-10-18 2010-10-19 Emergency ER UGORJI, [facility] [id number] [address] [place] 20:52:00 01:50:00 [id number] [facility] 2010-10-13 2010-10-16 Inpatient ELI RAMOS [facility] [id number] [address] [place] 18:28:00 20:15:00 [id number] [facility] 2010-09-12 2010-09-14 Inpatient ELI RAMOS [facility] [id number] [address] [place] 12:12:00 13:45:00 [id number] [facility] Results Test Description Test Time Test Comments Results Result Comments Source BASIC METABOLIC PANEL (NA, K, CL, CO2, GLUCOSE, BUN, 2022-10 16:23:16 CREATININE, CA) Test Item Value Reference Range Interpretation Comme nts NA (test code = 6908338373) 136 mmol/L 135-145 K (test code = 9891104224) 4.0 mmol/L 3.5-5.0 CL (test code = 4582376997) 101 mmol/L 98-108 CO2 TOTAL (test code = 4986159938) 23 mmol/L 23-31 AGAP (test code = 0477780116) 12 2-16 BUN (test code = 1657856634) 9 mg/dL 7-23 GLUCOSE (test code = 4560082510) 286 mg/dL 70-110 H CREATININE (test code = 0.68 mg/dL 0.60-1.25 0143206685) CALCIUM (test code = 3724202973) 8.3 mg/dL 8.6-10.6 L eGFR (test code = 3721868484) 122.5 mL/min/1.73m2 SHAWN (test code = SHAWN) Association of Glomerular Filtration Rate (GFR) and Staging of Kidney Disease* + +-------- + ------+| GFR (mL/min/1.73 m2) ?| With Kidney Damage ?| ?Without Kidney Damage+ +-- + +| ?>90 ?| ?Stage one ?| ? Normal ?+ +------- + -------+| ?60-89 ?| ?Stage two ?| ? Decreased GFR ? + +-------- + ------+| ?30-59 ?| ?Stage three ?| ? Stage three ? + +-------- + ------+| ?15-29 ?| ?Stage four ? | ? Stage four ?+ +------- + -------+| ?<15 (or dialysis) ? ?| ?Stage five ? | ? Stage five ?+ +------- + -------+ *Each stage assumes the associated GFR level has been in effect for at least three months. ?Stages 1 to 5, with or without kidney disease, indicate chronic kidney disease. Notes: Determination of stages one and two (with eGFR >59mL/min/1.73 m2) requires estimation of kidney damage for at least three months as defined by structural or functional abnormalities of the kidney, manifested by either:Pathological abnormalities or Markers of kidney damage (including abnormalities in the composition of the blood or urine or abnormalities in imaging tests). Lab Interpretation (test code = Abnormal 28045-0) [facility] WITH [id number] 16:10:58 Test Item Value Reference Range Interpretation Comments WBC (test code = 13.03 See_Comment H [Automated 9090-2) message] The sy stem which generated this result transmitted reference range : 4.20 - 10.70 10*3/?L. The reference range was not used to interpret this result as normal/abnormal . RBC (test code = 4.94 See_Comment [Automated 779-8) message] The sy stem which generated this result transmitted reference range : 4.26 - 5.52 10*6/?L. The reference range was not used to interpret this result as normal/abnormal . HGB (test code = 15.0 g/dL 12.2-16.4 718-7) HCT (test code = 43.7 % 38.4-49.3 4544-3) MCV (test code = 88.5 fL 81.7-95.6 787-2) MCH (test code = 30.4 pg 26.1-32.7 785-6) MCHC (test code = 34.3 g/dL 31.2-35.0 786-4) RDW-SD (test code = 42.8 fL 38.5-51.6 95604-9) RDW-CV (test code = 13.2 % 12.1-15.4 788-0) PLT (test code = 156 See_Comment [Automated 777-3) message] The sy stem which generated this result transmitted reference range : 150 - 328 10*3/ ?L. The reference r bhavna was not used to interpret this result as normal/abnormal . MPV (test code = 13.0 fL 9.8-13.0 31563-1) NRBC/100 WBC (test 0.0 See_Comment [Automat ed code = 3790485655) message] The system which generated this result transmitted reference range : 0.0 - 10.0 /100 WBCs. The refer ence range was not u sed to interpret th is result as normal/abnormal . NRBC x10^3 (test code See_Comment [Auto mated = 6358531121) message] The s ystem which generated this result transmitted reference range : 10*3/?L. The reference range was not used to interpret this result as normal/abnormal . GRAN MAT (NEUT) % 72.3 % (test code = 770-8) IMM GRAN % (test code 2.00 % = 0210919111) LYMPH % (test code = 15.0 % 736-9) MONO % (test code = 9.1 % 5905-5) EOS % (test code = 1.1 % 713-8) BASO % (test code = 0.5 % 706-2) GRAN MAT x10^3(ANC) 9.42 10*3/uL 1.99-6.95 H (test code = 2692460550) IMM GRAN x10^3 (test 0.26 10*3/uL 0.00-0.06 H code = 4197445654) LYMPH x10^3 (test code 1.96 10*3/uL 1.09-3.23 = 731-0) MONO x10^3 (test code 1.19 10*3/uL 0.36-1.02 H = 742-7) EOS x10^3 (test code = 0.14 10*3/uL 0.06-0.53 711-2) BASO x10^3 (test code 0.06 10*3/uL 0.01-0.09 = 704-7) Lab Interpretation Abnormal (test code = 74875-7) [facility] Test Item Value Reference Range Interpretation Comments GLUBED (test code = GLUBED) 155 mg/dL 70-110 H BASIC METABOLIC [id number] 06:26:00 Test Item Value Reference Range Interpretation [...] CA) 8.0 mg/dl 8.0-10.5 N CBC W/AUTO [id number] 06:04:00 Test Item Value Reference Range Interpretation [...] code = BA#) 0.1 K/mm3 0.0-0.2 N [id number] 05:50:00 Test Item Value Reference Range Interpretation Comments GLUBED (test code = GLUBED) 163 mg/dL 70-110 H [id number] 00:32:00 Test Item Value Reference Range Interpretation Comments GLUBED (test code = GLUBED) 216 mg/dL 70-110 H [id number] 05:57:00 Test Item Value Reference Range Interpretation Comments GLUBED (test code = GLUBED) 147 mg/dL 70-110 H [id number] 00:14:00 Test Item Value Reference Range Interpretation Comments GLUBED (test code = GLUBED) 169 mg/dL 70-110 H [id number] 16:32:00 Test Item Value Reference Range Interpretation Comments GLUBED (test code = GLUBED) 132 mg/dL 70-110 H [id number] 11:51:00 Test Item Value Reference Range Interpretation Comments GLUBED (test code = GLUBED) 170 mg/dL 70-110 H CARDIAC ENZYMES [id number] 08:23:00 Test Item Value Reference Range Interpretation Comments CREATINE KINASE (CK) 28 Units/L 39-308 L (test code = CK) TROPONIN-I (test code <0.02 NG/ML 0.00-0.06 N REFERE NCE RANGE = TROPI) TROPONIN I HEAL THY INDIVIDUALS: <0 .06 ng/mL R/O ISCHE AKHIL: 0.07 - 0.60 ng/ mL CUT-OFF RANGE F OR AMI: 0.60 - 1.5 ng/mL - XR CHEST 1 [id number] 06:38:00 FAX: Sky Valente MD [phone] [place]: St: [facility] FAX: Chilango Dobbs [phone] ------ Name: LARRYSUDHEER CAILIN [facility] : 1970 Age/S: 47/M [address] [facility] Unit #: [id number] Loc: [address] Phys: Chilango Vigil [address] Acct: [id number] Dis Date: Status: ADM IN PHONE #:[phone] Exam Date: 08/12/2018 0636 FAX #: [phone] Reason: CHEST PAIN EXAMS: CPT CODE: [id number] XR CHEST 1 V 19325 Location: U19. CHEST, FRONTAL VIEW HISTORY: CHEST [...] 1 Signed Report FAX: Sky Valente MD [phone] [place]: St: ADM FAX: Chilango Dobbs [phone] Name: SUDHEER JUAREZ [facility] : 1970 Age/S: 47/M [address] [facility] Unit #: [id number] Loc: [address] [place], [place] Phys: Chilango Vigil [address] Acct: [id number] Dis Date: Status: ADM IN PHONE #: [phone] Exam Date: 08/12/2018635 FAX #: [phone] Reason: CHEST PAIN EXAMS: CPT CODE: [id number] XRCHEST 1 V 55562 (Continued) Orig Print D/T: S: 08/12/2018 (0641) PAGE 2 Signed [id number] 05:48:00 Test Item Value Reference Range Interpretation Comments GLUBED (test code = GLUBED) 155 mg/dL 70-110 H [id number] 04:15:00 Test Item Value Reference Range Interpretation Comments GLUBED (test code = GLUBED) 195 mg/dL 70-110 H [id number] 16:15:00 Test Item Value Reference Range Interpretation Comments GLUBED (test code = GLUBED) 210 mg/dL 70-110 H URINALYSIS [id number] 13:21:00 Test Item Value Reference Range Interpretation [...] = MUCU) TRACE DRUGS OF ABUSE SCREEN [id number] 13:20:00 Test Item Value Reference Interpretation Comments [...] = [place]) concentrati on: 300 ng/mL URINALYSIS [id number] 13:17:00 Test Item Value Reference Range Interpretation [...] UA BACTERIA (test code = NONE BACU) [id number] 11:54:00 Test Item Value Reference Range Interpretation Comments HGBA1C% (test code = HGBA1C%) 5.7 %A1C 4.8-6.0 N ESTIMATED AVERAGE GLUCOSE (test 117 MG/DL code = EAG) [id number] 11:19:00 Test Item Value Reference Range Interpretation Comments GLUBED (test code = GLUBED) 225 mg/dL 70-110 H COMPREHENSIVE METABOLIC [id number] 07:52:00 Test Item Value Reference Range Interpretation [...] 50.0-136.0 N code = ALKP) Comments to Strip Cleaner: Patient is currently in the ED waiting [...] LDL) 128 mg/dl 70-130 N Comments to Strip Cleaner: Patient is currently in the ED waiting on a bed [id number] 07:52:00 Test Item Value Reference Range Interpretation Comments MAGNESIUM (test code = MAG) 1.9 mg/dl 1.8-2.4 N Comments to Strip Cleaner: Patient is currently in the ED waiting on a bedCBC W/AUTO [id number] 07:31:00 Test Item Value Reference Range Interpretation [...] BA#) 0.0 K/mm3 0.0-0.2 N Comments to Strip Cleaner: Patient is currently in the ED waiting on a bedGLUBED 2018-08-11 05:55:00 Test Item Value Reference Range Interpretation Comments GLUBED (test code = GLUBED) 215 mg/dL 70-110 H [id number] 00:35:00 Test Item Value Reference Range Interpretation Comments GLUBED (test code = GLUBED) 260 mg/dL 70-110 H COMPREHENSIVE METABOLIC [id number] 18:48:00 Test Item Value Reference Range Interpretation [...] 50.0-136.0 N code = ALKP) COMPREHENSIVE METABOLIC [id number] 18:41:00 Test Item Value Reference Range Interpretation [...] (test Units/L 50.0-136.0 code = ALKP) PROTHROMBIN [id number] 18:36:00 Test Item Value Reference Range Interpretation Comments PROTHROMBIN TIME 12.6 SECONDS 9.9-12.8 N PATIENT (test code = PTP) INTERNATIONAL NORMAL 1.1 0.89-1.14 N THE INR IS TO BE USED RATIO (test code = ONLY FOR MONITORING INR) ORAL ANTICOAGULANTTH ERAPY. THE FOLLOWING A RE SUGGESTED RANGE S FROM [facility] LE[facility] OF CHEST PHYSICIANS:REJI CATION INR [...] D ANTIBODIES 2.5 - 3.5 CBC W/AUTO [id number] 18:31:00 Test Item Value Reference Range Interpretation [...] K/mm3 0.0-0.2 N - CT L-SPINE W/O [id number] 18:03:00 FAX: Sagar Troncoso MD [phone] [place]: St: REG Name: SUDHEER JUAREZ [facility] : 1970 Age/S: 47/M [address] [facility] Unit: [id number] Loc: E.[place], [place] Phys: Sagar Peters [facility] [address] Acct: [id number] Dis Date: Status: REG ER PHONE #: [phone] Exam Date: 08/10/2018 1752 FAX #: [phone] Reason: acute injury, Hx L3-4 fusion EXAMS: CPT CODE: [id number] CT L-SPINE W/OCONTRAST 00838 EXAM: CT LUMBAR SPINE WITHOUT CONTRAST INDICATION: [...] Signed Report (CONTINUED) FAX: Sagar Troncoso MD [phone] [place]: St: REG Name: SUDHEER JUAREZ [facility] : 1970 Age/S: 47/M [address] [facility] Unit: [id number] Loc: E.[place], [place] Phys: [place] [address] Acct: [id number] Dis Date: Status: REG ER PHONE #: [phone] ExamDate: 08/10/2018 8049 FAX #: [phone] Reason: acute injury, Hx L3-4 fusion EXAMS: CPT CODE: [id number] CT L-SPINE W/O CONTRAST 20102 (Continued) Diffuse discogenic disease and facet joint [...] MD Technologist: MEHUL AWAN Trnscrd Dt/Tm: 08/10/2018 (1802) 16 Orig Print D/T: S: 08/10/2018 (1410 PAGE 2 Signed Report- CT HEAD/BRAIN W/O [id number] 17:56:00 FAX: Sagar Troncoso MD [phone] [place]: St: REG Name: SUDHEER JUAREZ [facility] : 1970 Age/S: 47/M [address] [facility] Unit: [id number] Loc: E.[place], [place] Phys: Sagar Peters [facility] [address] Acct: [id number] Dis Date: Status: REG ER PHONE #: [phone] Exam Date: 08/10/2018 2400 FAX #: [phone] Reason: acute injury, +LOC EXAMS: CPT CODE: [id number] CT HEAD/BRAIN W/O CONT 57875 CT HEAD WITHOUT CONTRAST. HISTORY: acute injury, [...] IMPRESSION: No evidenceof acute intracranial abnormality. at 8804 Reported and signed by: Augusta Remy M.D. CC: Sagar Peters MD Technologist: MEHUL AWAN Trntxrd Dt/Tm: 08/10/2018 (1231) t.SDR.SP17 Orig Print D/T: S: 08/10/2018 (6601 PAGE 1 Signed Report- XR T-SPINE 3 [id number] 17:33:00 FAX: Sagar Troncoso MD [phone] [place]: St: REG Name: SUDHEER JUAREZ [facility] : 1970 Age/S: 47/M [address] [facility] Unit #: [id number] [place]: [place]: [place] [address] Acct: [id number] Dis Date: Status: REG ER PHONE #: [phone] Exam Date: 08/10/2018 1729 FAX #: [phone] Reason: acute injury EXAMS: CPT CODE: [id number] XR T-SPINE 3 VIEWS 91884 Site ID: [id number] HISTORY: Acute injury, back pain IMPRESSION: Normal thoracic kyphosis, no acute fracture or subluxation. No significant spondylosis. Visualized ribs are intact. Spinal epidural leads terminate at the T8-T9 level. at 1733 Reportedand signed by: Memo Matos M.D. CC: Sagar Peters MD Technologist: HAI ELKINS Trnscrd Date/Time/By: 08/10/2018 (1435) : By: [email or web address] PAGE 1 Signed Report FAX: Sagar Troncoso MD [phone] [place]: St: REG -- Name: SUDHEER JUAREZ [facility] : 1970 Age/S: 47/M [address] [facility] Unit #: [id number] Loc: [place]: [place] [address] Acct: [id number] Dis Date: Status: REG ER PHONE #: [phone] Exam Date: 08/10/2018 1729 FAX #: [phone] Reason: acute injury EXAMS: CPT CODE: [id number] XR T-SPINE 3 VIEWS 07961 (Continued) Orig Print D/T: S: 08/10/2018 (8315) PAGE 2 Signed Report[U] XRAY SPINE LUMBOSACRAL MIN 4 VWS [id number] 13:57:00 Test Item Value Reference Range Interpretation Comments XR SPINE LUMBOSACRAL EXAM: XR SPINE MIN 4 VWS (test code = LUMBOSACRAL MIN 4 VWS 45445-9) DATE: 05/30/2017 at 1400 hours. INDICATION: Lower back pain. COMPARISON: None available. TECHNIQUE: AP, lateral, coned lateral, LPO and RPO radiographs of the lumbar spine. FINDINGS:5 nonrib bearing, lumbar-type vertebral bodies are present.A presumed spinal cord stimulator battery pack project over the left hip. Its distal leads are excluded from the spmmu-nb-mjff.Moderate facet arthropathy is present throughout the mid to lower lumbar spine.There appears to be an intervening disc spacer at the L3-L4 level. IMPRESSION:1. No acute, radiographic abnormality of the lower lumbar spine.2. Advanced facet arthropathy throughout the mid to lower lumbar spine.3. Probable intervening disc spacer at the L3-L4 level. 05/30/2017 2:32 PM ZIPPER TRIMMER HAND Lamont Hector ID Physicians Notes Date/Time Note Provider Source 2018-09-18 10:38:00-00:00 [id number] [facility] and [place] [address] Tevin Pickering [place], [place] [address] PATIENT NAME: SUDHEER JUAREZ ADMIT DATE: ACCOUNT NO: [id number] DISCHARGE DATE: 9 ROOM NO: E.438 REPORT TYPE: DISCHARGE SUMMARY DATE OF : AGE: 48 SEX: M ADMITTING PHYSICIAN:Sky Bartholomew MD ATTENDING PHYSICIAN:Sky Bartholomew MD ADMISSION DATE: 08/10/2018 DISCHARGE DATE: 08/14/2018 PRIMARY CARE PHYSICIAN: [facility]. REASON FOR ADMISSION: Severe back pain. CONSULTATIONS: 1. Dr. Avila, orthopedics. 2. Pain management, [facility]uel[facility]. HISTORY OF PRESENT ILLNESS AND HOSPITAL COURSE: A 47-year-old patient with known history of chronic back pain who follows w [facility] pain management and has fentanyl pain pump, also wit h history of L3-L4 spinal fusion, also with history of hypertension, diabetes, T IA, hyperlipidemia, lupus, anxiety, presented to the hospital with excruciating back pain. EMS was ca lled. He was brought into the hospital. He denies any incontinence or perineal sensory loss. The patient was diagnosed with xtfog-sm-bpyievm intractable low back pain. Diabetes and hypertension [...] PATIENT NAME: SUDHEER JUAREZ ACCOUNT #: [id number] WT: DS:ELACEY/BHAVNA/NTS Conf#: [id number]/DID#: [id number] Authenticated by Lakeisha Flaherty MD On 09/22/2018 02:45:38 PM Electronically Signed by Lakeisha Flaherty MD on 0 09/22/18 at 1445 PATIENT NAME: SUDHEER JUAREZ ACCOUNT #: [id number] 2018-08-16 23:31:00-00:00 [facility] ([facility]) EMERGENCY PROVIDER REPORT REPORT#:[id number] REPORT STATUS: Signed DATE:08/16/18 TIME: 2330 PATIENT: SUDHEER JUAREZ UNIT #: [id number] ROOM/BED: AGE: 47 SEX: M PCP PHYS: No Primary or Family Ph ysician SERVICE AUTHOR: Rin Simmons MILKING MACHINE TECHNICIAN * ALL edits or amendments must be made on the 3D Data/computer document * HPI-Back Pain 40 and Over [...] mellitus, Hypertension. Additional Medical History Lupus, No GA, Heart Grafts x2, anxiety Additional Surgical History NO Stents, Spinal Fusion, back surgery Family History: Reports: Hypertension. Alcohol Use Denies EtOH use Drug Use Denies recreational drugs Smoking status for patients 13 years old or olde r: Never Smoker Physical Exam Vital Signs Vital Signs First Documented: Result Date Time Pulse Ox 96 04/06 2306 B/P 164/100 08/16 2305 B/P Mean 121 [...] Result Date Time Pulse Ox 96 08/16 230 B/P 164/100 08/16 230 B/P Mean 121 08/16 2305 O2 Delivery Room air 08/16 2305 Temp 36.9 08/16 2305 Pulse 83 08/16 2306 Resp 18 08/16 2306 Last Documented: Result Date Time Pulse Ox 97 08/17 0030 B/P 155/80 / 0030 B/P Mean 105 / 0030 Temp 36.7 / 0030 Pulse 80 04/ 0030 Resp 18 08/17 0030 O2 Delivery Room air 08/16 2306 All vital signs available at the time [...] symptoms should prompt an immediate return to [facility] or the closest emergency department or a call to 1. at 2117 RPT #:[id number] END OF REPORT 2018-08-16 23:31:00-00:00 [facility] ([facility]) EMERGENCY PROVIDER REPORT REPORT#:[id number] REPORT STATUS: Signed DATE:08/16/18 TIME: 2330 PATIENT: SUDHEER JUAREZ UNIT #: [id number] ROOM/BED: AGE: 47 SEX: M PCP PHYS: No Primary or Family Ph ysician SERVICE AUTHOR: Rin Simmons MILKING MACHINE TECHNICIAN * ALL edits or amendments must be made on the 3D Data/computer document * Rin Simmnos 08/16/18 2331: HPI-Back Pain 40 and Over [...] mellitus, Hypertension. Additional Medical History Lupus, No GA, Heart Grafts x2, anxiety Additional Surgical History NO Stents, Spinal Fusion, back surgery Family History: Reports: Hypertension. Alcohol Use Denies EtOH use Drug Use Denies recreational drugs Smoking status for patients 13 years old or olde r: Never Smoker Physical Exam Vital Signs Vital Signs First Documented: Result Date Time Pulse Ox 96 08/16 2306 B/P 164/100 08/16 2306 B/P Mean 121 08/16 230 O2 Delivery Room air 08/16 2305 Temp 36.9 08/16 2305 Pulse 83 08/16 230 Resp 18 08/16 2305 Last Documented: Result Date Time Pulse Ox 97 08/17 0030 B/P 155/80 08/17 29 B/P Mean 105 08/17 29 Temp 36.7 08/17 29 Pulse 80 08/17 29 Resp 18 08/17 29 O2 Delivery Room air 08/16 2306 Review of Vital Signs Reviewed, Vital signs [...] B/P 155/80 08/17 0030 B/P Mean 105 08/17 29 Temp 36.7 08/17 29 Pulse 80 08/17 0030 Resp 18 08/170 O2 Delivery Room air 08/16 2305 All [...] symptoms should prompt an immediate return to [facility] or the closest emergency department or a call to 911. Vani Madden 08/17/182116: HPI-Back Pain 40 and Over General Initial Greet Date/Time 08/16/18 2311 Physical Exam Vital Signs Vital Signs Re-Evaluation MDM ED Course Medication(s) Ordered Patient Discharge Departure Vital Signs/Condition Vital Signs Supervising Physician Note MidLv Saw Pt Alone I have reviewed the PA/MILKING MACHINE TECHNICIAN's note and plan of car e. I was available for consultation as needed at al l times during the patient's visit in the emergency department. I agree with the clinical impression , plan and disposition. at 2116 Electronically Signed by Vani Madden MD on at 2118 RPT #:[id number] END OF REPORT 2018-08-15 12:22:00-00:00 [facility] ([facility]) EMERGENCY PROVIDER REPORT REPORT#:[id number] REPORT STATUS: Signed DATE:08/15/18 TIME: 1222 PATIENT: SUDHEER JUAREZ UNIT #: [id number] ROOM/BED: AGE: 47 SEX: M PCP PHYS: No Primary or Family Ph ysician SERVICE AUTHOR: Bishop Choudhury * ALL edits or amendments must be made on the 3D Data/computer document * HPI-Back Pain 40 and Over [...] not want to be admitted to the [facility]." Review of Systems ROS Statements All systems [...] pain #20 TABS Prov: 05/13/18 DC: 08/10/18 5697 Change of medication Reported Medications EMPAGLIFLOZIN (JARDIANCE) [...] mellitus, Hypertension. Additional Medical History Lupus, No GA, Heart Grafts x2, anxiety Additional Surgical History [...] MG X1ED STA 08/15 1221 DC 0 / PO 08/15 1222 1230 Hormones And Synthetic [...] Pulse Ox 98 04/ 1206 B/P 177/89 04/05 1206 B/P Mean 118 04/05 1206 O2 Delivery Room air 04/ 1206 Temp 36.8 04/05 1206 Pulse 81 04/05 1206 Resp 18 08/15 1206 All vital [...] by Bishop Choudhury on at 1635 RPT #:[id number] END OF REPORT 2018-08-15 12:22:00-00:00 [facility] ([facility]) EMERGENCY PROVIDER REPORT REPORT#:[id number] REPORT STATUS: Signed DATE:08/15/18 TIME: 1222 PATIENT: SUDHEER JUAREZ UNIT #: [id number] ROOM/BED: AGE: 47 SEX: M PCP PHYS: No Primary or Family Ph ysician SERVICE AUTHOR: Bishop Choudhury * ALL edits or amendments must be made on the 3D Data/computer document * Bishop Choudhury 08/15/18 1222: HPI-Back [...] not want to be admitted to the [facility]." Review of Systems ROS Statements All systems [...] mellitus, Hypertension. Additional Medical History Lupus, No GA, Heart Grafts x2, anxiety Additional Surgical History [...] MG X1ED STA 08/15 1221 DC 0 08/15 PO 08/15 1222 1230 Hormones And Synthetic Substit Sig/Mahsa Start time Last Medication Dose Route Stop Time Status Admin Prednisone 50 MG X1ED STA 08/15 1222 DC 08/15 PO 08/15 1223 1229 Patient Discharge Departure Vital Signs/Condition Vital Signs First Documented: Result Date Time Pulse Ox 98 08/15 1206 B/P 177/89 04/ 1206 B/P Mean 118 04/05 1206 O2 Delivery Room air 04/ 1206 Temp 36.8 04/05 1206 Pulse 81 04/05 1206 Resp 18 04/ 1206 Last Documented: Result Date Time Pulse Ox 98 08/15 1206 B/P 177/89 04/ 1206 B/P Mean 118 04/ 1206 O2 Delivery Room air 04/ 1206 [...] When to return to ED Prescriptions prednisone Payton Morin 08/16/18 0758: HPI-Back Pain 40 and Over [...] Saw Pt Alone I have reviewed the PA/MILKING MACHINE TECHNICIAN's note and plan of car e. I was available for consultation as needed at al l times during the patient's visit in the emergency department. I agree with the clinical impression , plan and disposition. Electronically Signed by Bishop Choudhury on at 1635 Electronically Signed by Payton Snowden MD on 0 08/16/18 at 0759 RPT #:[id number] END OF REPORT 2018-08-14 11:17:00-00:00 [facility] ([facility]) Orthopaedic Progress Note REPORT#:[id number] REPORT STATUS: Signed DATE:08/14/18 TIME: 1117 PATIENT: SUDHEER JUAREZ UNIT #: [id number] ROOM/BED: [place] [address] : 70 AGE: 47 SEX: M ATTEND: Shahid Bartholomew MD ADM AUTHOR: Jose Elias Avila MD * ALL edits or amendments must be made on the 3D Data/computer document * Subjective Chief complaint: low back [...] (Auto) (23.0 - 38.0 %) 18.0 L [place] % (Auto) (1.0 - 10.0 %) 6.7 Eos % (Auto) (1.0 - 5.0 %) 0.1 L Baso % (Auto) (0.0 - 1.0 %) 0.3 Neut # (Auto) (2.4 - 6.3 K/mm3) 11.9 H Lymph # (Auto) (1.2 - 4.0 K/mm3) 2.9 [place] # (Auto) (0.0 - 0.6 K/mm3) 1.1 [...] Elias Avila MD on at 1119 RPT #:[id number] END OF REPORT 2018-08-13 14:29:00-00:00 [facility] ([facility] Hospitalist Progress Note REPORT#:[id number] REPORT STATUS: Signed DATE:08/13/18 TIME: 1429 PATIENT: SUDHEER JUAREZ UNIT #: [id number] ROOM/BED: [place] [address] : 70 AGE: 47 SEX: M ATTEND: Shahid Bartholomew MD ADM AUTHOR: Lakeisha Flaherty MD * ALL edits or amendments must be made on the 3D Data/computer document * Subjective Chief Complaint: still with [...] muscle spasm, muscle tenderness , paraspinal tenderness Neuro/TRUCK CATERER: alert, oriented X 3 Skin: dry, intact Results Findings/Data: Laboratory Tests 08/12 08/13 08/13 1620 0002 0548 Chemistry POC Glucose (70 - 110 mg/dL) 132 H 169 H 147 H Diagnosis, Assessment Plan Free Text DxA P Notes Free text DxA P notes: 1. Zddpx-vs-zawmvdo intractable low back pain. C T L-spine [...] appt 2. Diabetes mellitus type 2. controlled R7W----8.7 3. Hyperlipidemia. Continue home medications. 4. Transient [...] Lakeisha Flaherty MD on at 1438 RPT #:[id number] END OF REPORT 2018-08-13 14:29:00-00:00 [facility] ([facility]) Hospitalist Progress Note REPORT#:[id number] REPORT STATUS: Signed DATE:08/13/18 TIME: 1429 PATIENT: SUDHEER JUAREZ UNIT #: [id number] ROOM/BED: [place] [address] : 70 AGE: 47 SEX: M ATTEND: Shahid Bartholomew MD ADM AUTHOR: Lakeisha Flaherty MD * ALL edits or amendments must be made on the 3D Data/[facility] document * See Addendum Subjective Chief Complaint: [...] muscle spasm, muscle tenderness , paraspinal tenderness Neuro/TRUCK CATERER: alert, oriented X 3 Skin: dry, intact Results Findings/Data: Laboratory Tests 08/12 08/13 08/13 1620 0002 0548 Chemistry POC Glucose (70 - 110 mg/dL) 132 H 169 H 147 H Diagnosis, Assessment Plan Free Text DxA P Notes Free text DxA P notes: 1. Csnfi-zv-bakblcf intractable low back pain. C T L-spine [...] appt 2. Diabetes mellitus type 2. controlled H4T----7.7 3. Hyperlipidemia. Continue home medications. 4. Transient [...] Signed by Lakeisha Flaherty MD on at 1439 RPT #:[id number] END OF REPORT 2018-08-13 14:01:00-00:00 [facility] ([facility]) Pain Management Progress Note REPORT#:[id number] REPORT STATUS: Signed DATE:08/13/18 TIME: 140 PATIENT: SUDHEER JUAREZ UNIT #: [id number] ROOM/BED: [place] [address] : 70 AGE: 47 SEX: M ATTEND: Shahid Bartholomew MD ADM AUTHOR: Brennen Valenzuela * ALL edits or amendments must be made on the 3D Data/computer document * Subjective Chief Complaint: Patient seen [...] Extremities: moves all, no edema, pedal pulses Neuro/TRUCK CATERER: no motor deficits, no sensory deficit s, [...] narcotic medication will arrange followup in clinic [place] 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 06/23/2018 1 04/10/2018 LYRI CA 200 MG CAPSULE 90.0 30 DA [place] [id number] [facility] (1910 ) 0 Medicare [place] 05/29/2018 1 05/29/2018 TRAM ADOL HCL 50 MG TABLET 20.0 5 KE RIT [id number] [facility] ( 1910) 05/28/2018 2 05/22/2018 FENTANYL CITRATE POWDER 0.0015 1 VL RED [id number] [facility] ( 8731) 0 195.0 MME Private Pay [place] 05/14/2018 1 05/13/2018 TRAMADOL HCL 50 MG TABLET 20.0 3 RO ARM [id number] [facility] ( 91) 0 33.33 MME Medicare [place] 04/10/2018 1 04/10/2018 LYRI CA 200 MG CAPSULE 90.0 30 DA [place] 487210 [facility] (9191) 0 Medicare [place] 03/24/2018 2 03/20/2018 FENTANYL CITRATE POWDER 0.001 1 VL RED [id number] [facility] ( 8731) [facility] (1910) [address] [place] [address] [phone] [employer] (9191) [address] [place] [address] [phone] [facility] (8731) [address] [facility] [address] [phone] at 1406 RPT #:[id number] END OF REPORT 2018-08-13 14:01:00-00:00 [facility] ([facility]) Pain Management Progress Note REPORT#:[id number] REPORT STATUS: Signed DATE:08/13/18 TIME: 1401 PATIENT: SUDHEER JUAREZ UNIT #: [id number] ROOM/BED: [place] [address] : 70 AGE: 47 SEX: M ATTEND: Igor Bartholomew MD ADM AUTHOR: Brennen Valenzuela * ALL edits or amendments must be made on the el ectronic/computer document * Subjective Chief Complaint: Patient seen [...] Extremities: moves all, no edema, pedal pulses Neuro/TRUCK CATERER: no motor deficits, no sensory deficit s, [...] narcotic medication will arrange followup in clinic [place] 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 06/23/2018 1 04/10/2018 LYRI CA 200 MG CAPSULE 90.0 30 DA [place] [id number] [facility] (1910 ) 0 Medicare [place] 05/29/2018 1 05/29/2018 TRAM ADOL HCL 50 MG TABLET 20.0 5 KE RIT [id number] [facility] ( 1910) 05/28/2018 2 05/22/2018 FENTANYL CITRATE POWDER 0.0015 1 VL RED [id number] [facility] ( 8731) 0 195.0 MME Private Pay [place] 05/14/2018 1 05/13/2018 TRAMADOL HCL 50 MG TABLET 20.0 3 RO ARM 137868 [facility] ( 91) 0 33.33 MME Medicare [place] 04/10/2018 1 04/10/2018 LYRI CA 200 MG CAPSULE 90.0 30 DA [place] 157699 [facility] (9191) 0 Medicare [place] 03/24/2018 2 03/20/2018 FENTANYL CITRATE POWDER 0.001 1 VL RED 163186 [facility] ( 8731) [facility] (1910) [address] [place] [address] [id number] [employer] (9191) [address] [place] [address] [phone] [facility] (8731) [address] [facility] [address] [phone] at 1406 Electronically Signed by Alberto Arceo MD on 07/29 at 8671 RPT #:[id number] END OF REPORT 2018-08-13 07:12:00-00:00 [id number] [facility] Main and [facility] [address] [place], [place] [address] PATIENT NAME: SUDHEER JUAREZ ADMIT DATE: ACCOUNT NO: [id number] DISCHARGE DATE: ROOM NO: E.438 REPORT TYPE: OPERATIVE REPORT DATE OF : [...] device pump mod el #8637-20, pump serial #[id number]. He currently has in his reservoir f [...] Valenzuela PA for Alberto lam MD WT: OP:ELACEY/NETO/MYLENE Conf#: [id number]/DID#: [id number] Authenticated and Edited by Lex Dan On 08/13/18 2:17:30 PM Authenticated by Alberto Arceo MD On 08/13/2018 09:58:51 PM Electronically Signed by Alberto Arceo MD on 07/29 at 2159 at 2159 PATIENT NAME: SUDHEER JUAREZ ACCOUNT #: [id number] 2018-08-12 15:23:00-00:00 [facility] ([facility] Orthopaedic Progress Note REPORT#:[id number] REPORT STATUS: Signed DATE:08/12/18 TIME: 1522 PATIENT: SUDHEER JUAREZ UNIT #: [id number] ROOM/BED: [place] [address] : 70 AGE: 47 SEX: M ATTEND: Shahid Bartholomew MD ADM AUTHOR: Jose Elias Avila MD * ALL edits or amendments must be made on the 3D Data/[facility] document * Subjective Chief complaint: low back [...] RADIOLOGY - XR CHEST 1 V 08/12 0536 Report Impression - Status: SIGNED Entered: 08/12/2018640 IMPRESSION: No evidence of acute cardiopulmonary disease. [...] Elias Avila MD on at 1526 RPT #:[id number] END OF REPORT 2018-08-12 13:54:00-00:00 [facility] ([facility]) Hospitalist Progress Note REPORT#:[id number] REPORT STATUS: Signed DATE:08/12/18 TIME: 1354 PATIENT: SUDHEER JUAREZ UNIT #: [id number] ROOM/BED: [place] [address] : 70 AGE: 47 SEX: M ATTEND: Shahid Bartholomew MD ADM AUTHOR: Lakeisha Flaherty MD * ALL edits or amendments must be made on the 3D Data/computer document * Subjective Chief Complaint: still with [...] tenderness, no clubbing, no cyanosis, no edema Neuro/TRUCK CATERER: alert, oriented X 3 Skin: dry, intact [...] Notes Free text DxA P notes: 1. Irvem-zo-lostuwn intractable low back pain. C T L-spine is negative for acute fracture. consulted PT, slow to improve consulted ortho consult pain management patient reports pain not well controlled 2. Diabetes mellitus type 2. controlled U2B----2.7 3. Hyperlipidemia. Continue home medications. 4. Transient ischemic attack. Continue Plavix. 5. Deep vein thrombosis prophylaxis with SCDs. 6. chronic pain-----Lyrica, tramadol, fentanyl( pain pump) Home once the patient is able to walk. Electronically Signed by Lakeisha Flaherty MD on at 1357 RPT #:[id number] END OF REPORT 2018-08-12 12:03:00-00:00 [facility] ([facility]) Pain Management Consult Note REPORT#:[id number] REPORT STATUS: Signed DATE:08/12/18 TIME: 1203 PATIENT: SUDHEER JUAREZ UNIT #: [id number] ROOM/BED: [place] [address] : 70 AGE: 47 SEX: M ATTEND: Shahid Bartholomew MD ADM AUTHOR: Brennen Valenzuela * ALL edits or amendments must be made on the 3D Data/[facility] document * History of Present Illness Primary [...] DAILY 08/01/16 08/10/18 Strength: 4 MG TAB.CHEW 821 2003 metFORMIN (GLUCOPHAGE) 1,000 MG PO BID 08/01/16 08/10/18 Strength: 1,000 MG TAB 082003 METOPROLOL SUCC XL 25 MG PO DAILY 08/01/16 03/05/31 (TOPROL XL) 082003 Strength: 25 MG TAB.SR.24H SERTRALINE (ZOLOFT) 25 MG PO BEDTIME 30 8 08/10/18 Strength: 50 MG TAB 1543 2003 traZODone (DESYREL) 50 MG PO 30 02/25/18 Strength: 50 MG TAB BEDTIME PRN PRN 1544 [address] 20 MG PO DAILY 30 02/25/18 08/10/18 (NexIUM) 1542003 Strength: 20 MG CAP. Current Hospital Medications: Autonomic Drugs Sig/Mahsa Start time Last Medication Dose Route Stop Time Status Admin Cyclobenzaprine HCl 10 MG BID 08/11 2099 AC (FLEXERIL) PO 09/10 2058 0852 Blood Formation,Coagulation Sig/Mahsa Start time Last [...] 2099 AC 1 (ZOLOFT) PO 09/09 2058 230 Trazodone HCl 50 MG BEDTIME PRN PRN 08/10 2030 AC 08/11 (DESYREL) PO 09/09 2028 230 Hydromorphone HCl 1 MG Q4H PRN PRN [...] 08/12 153 O2 Delivery Nasal cannula 08/12 1530 Temp 36.7 08/12 153 Pulse 51 08/12 [...] Extremities: moves all, no edema, pedal pulses Neuro/TRUCK CATERER: no motor deficits, no sensory deficit s, [...] 0636 Report Impression - Status: SIGNED Entered: 08/12/2018640 IMPRESSION: No evidence of acute cardiopulmonary disease. [...] di scussed with Dr Arceo whom agrees. [facility] report personally reviewed, copy place d on chart. 06/23/2018 1 04/10/2018 LYRI CA 200 MG CAPSULE 90.0 30 DA [place] [id number] [facility] (1911 ) 0 Medicare [place] 05/29/2018 1 05/29/2018 TRAM ADOL HCL 50 MG TABLET 20.0 5 KE RIT [id number] [facility] ( 1910) 05/28/2018 2 05/22/2018 FENTANYL CITRATE POWDER 0.0015 1 VL RED 080301 [facility] ( 8731) 0 195.0 MME Private Pay [place] 05/14/2018 1 05/13/2018 TRAMADOL HCL 50 MG TABLET 20.0 3 RO ARM 725752 [facility] ( 9191) 0 33.33 MME Medicare [place] 04/10/2018 1 04/10/2018 LYRI CA 200 MG CAPSULE 90.0 30 DA [place] 884530 [facility] (9191) 0 Medicare [place] 03/24/2018 2 03/20/2018 FENTANYL CITRATE POWDER 0.001 1 VL RED 090656 [facility] ( 8731) [employer] (1910) [address] [place] [address] [id number] [employer] [facility] (3591) [address] [place] [address] [phone] [facility] (8812) [address] [facility] [address] [phone] at 1738 RPT #:[id number] END OF REPORT 2018-08-12 12:03:00-00:00 [facility] Pain Management Consult Note REPORT#:[id number] REPORT STATUS: Signed DATE:08/12/18 TIME: 1203 PATIENT: SUDHEER JUAREZ UNIT #: [id number] ROOM/BED: [place] [address] : 70 AGE: 47 SEX: M ATTEND: Shahid Bartholomew MD ADM AUTHOR: Brennen Valenzuela * ALL edits or amendments must be made on the 3D Data/[facility] document * History of Present Illness Primary [...] DAILY 08/01/16 08/10/18 Strength: 4 MG TAB.CHEW 0822 2003 metFORMIN (GLUCOPHAGE) 1,000 MG PO BID 08/01/16 08/10/18 Strength: 1,000 MG TAB 0819 2003 METOPROLOL SUCC XL 25 MG PO DAILY 08/01/1607/13 (TOPROL XL) 0821 2003 Strength: 25 MG TAB.SR.24H SERTRALINE (ZOLOFT) 25 MG PO BEDTIME 30 8 08/10/18 Strength: 50 MG TAB 1543 2003 [...] BID 08/11 2100 AC (FLEXERIL) PO 09/10 2058 0852 Blood Formation,Coagulation Sig/Mahsa Start time Last Medication Dose Route Stop Time Status Admin Clopidogrel Bisulfate 75 MG DAILY 08/11 0900 AC 08/12 (PLAVIX) PO 09/10 0859 0851 Cardiovascular Drugs Sig/Mahsa Start time Last Medication Dose Route Stop Time Status Admin Nitroglycerin 0.4 MG Q5M PRN PRN 08/12 0630 AC 08/12 (NITROSTAT BOTTLE) SL 09/11 0629 0643 Metoprolol Succinate 25 MG DAILY 08/11 09 AC 08/12 (TOPROL XL) PO 09/10 0859 0852 Central Nervous System Agents Sig/Masha Start time Last Medication Dose Route Stop Time Status Admin Hydromorphone HCl 1 MG Q4H PRN PRN 08/11 2014 A C 08/12 (DILAUDID) IV 09/10 2013 0853 Oxycodone/ 1 TAB Q4H PRN PRN 08/11 2014 AC 2 Acetaminophen PO 09/10 2013 1308 (PERCOCET 5-325 MG TABLET) Pregabalin 200 MG TID 08/10 2100 AC 08/12 (LYRICA) PO 09/09 2058 1308 Sertraline HCl 25 MG BEDTIME 08/10 2100 AC 1 (ZOLOFT) PO 09/09 2058 2302 Trazodone HCl 50 MG BEDTIME PRN PRN 08/10 2030 AC 08/11 (DESYREL) PO 09/099 2302 Hydromorphone HCl 1 MG Q4H PRN PRN 08/10 1830 D C 08/11 (DILAUDID) IV 08/11 1829 1404 Electrolytic, Caloric, And Ivc Sig/Mahsa Start time Last Medication Dose Route [...] Human Lispro 0 Q6HR 08/12 0000 AC 2 (HumaLOG 100 UNITS/ SUBQ 09/11 0000 [...] Nasal cannula 08/12 153 Temp 36.7 08/12 1531 Pulse 51 08/12 1531 Resp 18 08/12 [...] Extremities: moves all, no edema, pedal pulses Neuro/TRUCK CATERER: no motor deficits, no sensory deficit s, [...] di scussed with Dr Arceo whom agrees. [facility] report personally reviewed, copy place d on chart. 06/23/2018 1 04/10/2018 LYRI CA 200 MG CAPSULE 90.0 30 DA [place] [id number] [facility] (1910 ) 0 Medicare [place] 05/29/2018 1 05/29/2018 TRAM ADOL HCL 50 MG TABLET 20.0 5 KE RIT [id number] [facility] ( 1910) 05/28/2018 2 05/22/2018 FENTANYL CITRATE POWDER 0.0015 1 VL RED 236049 [facility] ( 8731) 0 195.0 MME Private Pay [place] 05/14/2018 1 05/13/2018 TRAMADOL HCL 50 MG TABLET 20.0 3 RO ARM 612375 [facility] ( 9191) 0 33.33 MME Medicare [place] 04/10/2018 1 04/10/2018 LYRI CA 200 MG CAPSULE 90.0 30 DA [place] 619484 [facility] (9191) 0 Medicare [place] 03/24/2018 2 03/20/2018 FENTANYL CITRATE POWDER 0.001 1 VL RED 645606 [facility] ( 8731) [employer] (1910) [address] [place] [address] [phone] [employer] (9430) [address] [place] [address] [phone] [facility] (8785) [address] [facility] [address] [phone] at 1738 Electronically Signed by Alberto Arceo MD on 07/01 at 2346 RPT #:[id number] END OF REPORT 2018-08-12 09:39:00-00:00 [facility] ([facility]) Pharmacy Prog.Note-Med Mgmt REPORT#:[id number] REPORT STATUS: Signed DATE:08/12/18 TIME: 0939 PATIENT: SUDHEER JUAREZ UNIT #: [id number] ROOM/BED: [place] [address] : 70 AGE: 47 SEX: M ATTEND: Shahid Bartholomew MD ADM AUTHOR: Claudio Block [facility] * ALL edits or amendments must be made on the el [employer]/computer document * Medication Therapy Management Additional comments: RE Hypoglycemia treatment added per approved P T protocol Electronically Signed by Claudio Block [facility] on 08/12 at 0939 RPT #:[id number] END OF REPORT 2018-08-11 12:06:00-00:00 [id number] [facility] and [facility] [address] [place] [address] PATIENT NAME: SUDHEER JUAREZ ADMIT DATE: ACCOUNT NO: [id number] DISCHARGE DATE: ROOM NO: [facility] REPORT TYPE: CONSULTATION REPORT DATE OF : [...] by pain management physician, Dr. Gauthier in [place], [place]. He states that he has had [...] been told by his surgeon not to und ergo an MRI scan. His most recent incident involved a fall for about 3 to 4 feet off the doorway of his new trailer home. He was trying to grab o n to the door with a strong wind and it threw him off the platform. He state s he was knocked unconscious and was eventually brought here to [facility] where a CT of the lumbar spine [...] Lives here i n the [facility], but he drives to [place] to see his pain management physician. Denies any tobacc o, alcohol, or illicit drug use. ALLERGIES: NUMEROUS INCLUDING LISINOPRIL, ASPIRI N, LORAZEPAM, IODINE, ROPINIROLE. MEDICATIONS: At home include metoprolol, Lyrica, Zoloft, trazodone, Singulair, Nexium, Glucophage, and Plavix. PATIENT NAME: SUDHEER JUAREZ ACCOUNT #: [id number] PHYSICAL EXAMINATION: GENERAL: He is awake and [...] Dictated By: Jose Elias Avila MD WT: CON:ELACEY/MADISON/MYLEEN Conf#: [id number]/DID#: [id number] Authenticated by Jose Elias Avila MD On 019 12:47:37 PM Electronically Signed by Jose Elias Avila MD on 0 08/13/18 at 1247 PATIENT NAME: USDHEER JUAREZ ACCOUNT #: [id number] 2018-08-11 11:09:00-00:00 [id number] [facility] [address] [place] [address] PATIENT NAME: SUDHEER JUAREZ ADMIT DATE: ACCOUNT NO: [id number] DISCHARGE DATE: 9 ROOM NO: E.438 REPORT [...] EMS. The [facility]. He complains of severe low back pain, [...] distress. PATIENT NAME: SUDHEER JUAREZ ACCOUNT #: [id number] HEENT: Normocephalic, atraumatic. Oropharyngeal mucosa clear and [...] CT lumbar spine without contrast, no ac [place] fracture, erosive changes at facet joints L4-L5 bilaterally, which has prog ressed, may be secondary to synovitis, diffuse discogenic disease, facet joint arthropathy throughout the lumbar spine, post-surgical changes at L3-L4, moderate neural foraminal stenosis L4-L5 and L5-S1 bilaterally. ASSESSMENT AND PLAN: 1. Ljcju-kx-jykgwmf intractable low back pain. C T L-spine [...] The patient follows with Dr. Gauthier in [place] pain management for chronic low back pain and has a pain pump as well. 2. Diabetes mellitus type 2. Continue home medic ations and adjust as needed. Check A1c. 3. Hyperlipidemia. Continue home medications. 4. Transient ischemic attack. Continue Plavix. 5. Deep vein thrombosis prophylaxis with SCDs. 6. Disposition: Home once the patient is able to walk. Dictated By: Lakeisha Flaherty MD WT: HP:ELACEY/BHAVNA/NTS Conf#: [id number]/DID#: [id number] Authenticated by Lakeisha Flaherty MD On 08/14/2018 09:48:35 PM Electronically Signed by Lakeisha Flaherty MD on 0 08/14/18 at 2148 PATIENT NAME: SUDHEER JUAREZ ACCOUNT #: [id number] 2018-08-11 11:03:00-00:00 [facility] ([facility]) History Physical - Adult REPORT#:[id number] REPORT STATUS: Signed DATE:08/11/18 TIME: 1103 PATIENT: SUDHEER JUAREZ UNIT #: [id number] ROOM/BED: [place] [address] : 70 AGE: 47 SEX: M ATTEND: Shahid Bartholomew MD ADM AUTHOR: Lakeisha Flaherty MD * ALL edits or amendments must be made on the [employer]computer document * History Past medical history: Reports: Diabetes mellitus, Hypertension. Additional medical history: Lupus, No GA, Heart Grafts x2, anxiety Additional surgical history: [...] Lakeisha Flaherty MD on at 1103 RPT #:[id number] END OF REPORT 2018-08-10 17:03:00-00:00 [facility] ([facility]) EMERGENCY PROVIDER REPORT REPORT#:[id number] REPORT STATUS: Signed DATE:08/10/18 TIME: 1703 PATIENT: SUDHEER JUAREZ UNIT #: [id number] ROOM/BED: [place] [address] AGE: 47 SEX: M PCP PHYS: No Primary or Family Ph ysician SERVICE AUTHOR: Sagar Peters MD * ALL edits or amendments must be made on the 3D Data/computer document * HPI-Trauma Minor/Fall General Confirmed Patient [...] mellitus, Hypertension. Additional Medical History Lupus, No GA, Heart Grafts x2, anxiety Additional Surgical History [...] RADIOLOGY - XR T-SPINE 3 VIEWS 08/10 1728 Report Impression - Status: SIGNED Entered: 08/10/2018 173 IMPRESSION: Normal thoracic kyphosis, no acute fracture or s ubluxation. No significant spondylosis. Visualized ribs are int act. Spinal epidural leads terminate at the T8-T9 level. Impression By: [email or web address] Aria Matos M.D. CAT SCAN - CT HEAD/BRAIN W/O CONT 08/10 1753 Report Impression - Status: SIGNED Entered: 08/10/20181758 IMPRESSION: No evidence of acute intracranial abnormality. Impression By: [email or web address] Aria Remy M.D. CAT SCAN - CT L-SPINE W/O CONTRAST 08/10 1753 Report Impression - Status: SIGNED Entered: 08/10/2018 180 IMPRESSION: No acute fracture is identified. Erosive [...] 1828 Sodium Chloride 10 ML ASDIR 08/10 183 AC IV 09/09 1828 Consultation Consultation Banjo Repairer Called Physical Therapy Requested Call Time 1819 [...] of Dr. Peters. Signed By: Shaan Palmer, 08/10/181711 Portions of this section were scribed by Shaan Palmer on 08/10/18 at 1819 at 0615 RPT #:[id number] END OF REPORT
--- NOTE | 2022-11-21 11:27 | RAD REPORT ---
EXAM DESCRIPTION: CT - Head Brain Wo Cont - 11/21/2022 11:15 am CLINICAL HISTORY: NUMBNESS COMPARISON: Head Brain Wo Cont dated 08/17/2021; Head Brain Wo Cont dated 05/09/2018 TECHNIQUE: Noncontrast head CT images were obtained without IV contrast. Multiplanar reformats were generated and reviewed. All CT scans are performed using dose optimization technique as appropriate and may include automated exposure control or mA/KV adjustment according to patient size. FINDINGS: Mixed density, although predominantly hypodense, left frontoparietal convexity subdural co llection measuring up to 8 millimeter in thickness. Minimal mass effect upon the adjacent sulci. No m idline shift. No evidence of parenchymal hemorrhage, mass, or edema. Midline structures are unremarka ble. Normal ventricular caliber for age. Aguilar-white matter differentiation is preserved, without evidence of acute infarct. Mild periventricul ar and deep white matter hypodensities are nonspecific, but suggests chronic small vessel ischemic ch anges. Mastoid air cells are well aerated. Mild inflammatory mucosal thickening along the ethmoidal air cell s bilaterally. Partially visualized periapical lucencies along the maxillary alveolus. No acute bony findings. IMPRESSION: Mixed density left frontoparietal subdural collection measuring 8 millimeter in thicknes s, suggestive of a subacute hemorrhage. Minimal mass effect, without significant ventricular effaceme nt or midline shift. No other acute findings. Incidental findings as above.
[2022-11-21 11:34] LABS: Absolute Lymphocytes (CBC) 2.1 K/uL (0.7-4.9); Hematocrit 43.6 % (39.6-49.0); Lymphocytes % 26.5 % (15.3-44.8); MCV 89.6 fL (80-100); MPV 11.3 fL (7.6-11.3); RBC Red Blood Cell Count 4.87 M/uL (4.33-5.43)
--- NOTE | 2022-11-21 11:54 | EDPHYS ---
Physician Documentation [facility] Name: Matti Juarez Age: 52 yrs Sex: Male : 1970 Arrival Date: 11/21/2022 Time: 10:56 Bed 4 Private MD: ED Physician Nancy Greer HPI: 11/21 11:15 This 52 yrs old Male presents to ER via Unassigned with complaints of Numbness snw - right side. 11:15 The patient's problem is reported as weakness, in the right lower extremity. Onset: The snw symptoms/episode began/occurred acutely, this morning. Duration: The episode is continuous. Context: occurred at home, Possible contributing factors include: Patient is a know diabetic. recent illness. It is unknown whether or not the patient has had similar symptoms in the past. The patient has been recently seen by a physician: The patient has been recently seen at the [facility] Emergency Department, last month. 11:15 Pt states he was aware there was something wrong this am when he awoke at 0900. Pt did snw take his Eliquis at 0930. Denies trauma. Pt does recall that he has had a bad headache x 3 days, initially to occipital area and then yesterday noted the pain had moved to left frontal area. . Historical: - Allergies: 11:25 Anesthesia; iw 11:25 Aspirin; iw 11:25 atorvastatin; iw 11:25 Iodinated Contrast Media - IV Dye (cardiac arrest); iw 11:25 Requip; iw 11:25 ropinirole HCl; iw 11:25 SHELLFISH; iw - PMHx: 11:25 cardiac arrest; Diabetes - NIDDM; heart catheterization; Hypertension; iw - PSHx: 11:25 Cholecystectomy; pain pump implant, RIGHT lower abd; spine fusion; spine stimulator, iw LEFT hip; - Immunization history:: Adult Immunizations not up to date. - Social history:: Smoking status: . ROS: 11:12 Eyes: Negative for injury, pain, redness, and discharge, ENT: Negative for injury, snw pain, and discharge, Neck: Negative for injury, pain, and swelling, Cardiovascular: Negative for chest pain, palpitations, and edema, Respiratory: Negative for shortness of breath, cough, wheezing, and pleuritic chest pain, Abdomen/GI: Negative for abdominal pain, nausea, vomiting, diarrhea, and constipation, Back: Negative for injury and pain, : Negative for injury, bleeding, discharge, and swelling, MS/Extremity: Negative for injury and deformity, Skin: Negative for injury, rash, and discoloration, Psych: Negative for depression, anxiety, suicide ideation, homicidal ideation, and hallucinations. 11:12 Constitutional: Positive for numbness to right face, arm, leg, mildly weaker to right. 11:12 Neuro: Positive for numbness, tingling, weakness. Exam: 11:37 Radiologist reports: 8mm subacute left frontoparietal subdural, no shift snw 11:37 Constitutional: This is a well developed, well nourished patient who is awake, alert, and in no acute distress. Head/Face: Normocephalic, atraumatic. Eyes: Pupils equal round and reactive to light, extra-ocular motions intact. Lids and lashes normal. Conjunctiva and sclera are non-icteric and not injected. Cornea within normal limits. Periorbital areas with no swelling, redness, or edema. 11:37 ENT: Nose: is normal, Mouth: no acute changes, Dental exam: dental caries, Voice: mildly weak. 11:53 Neck: Trachea midline, no thyromegaly or masses palpated, and no cervical snw lymphadenopathy. Supple, full range of motion without nuchal rigidity, or vertebral point tenderness. No Meningismus. Chest/axilla: Normal chest wall appearance and motion. Nontender with no deformity. No lesions are appreciated. Cardiovascular: Regular rate and rhythm with a normal S1 and S2. No gallops, murmurs, or rubs. Normal PMI, no JVD. No pulse deficits. Respiratory: Lungs have equal breath sounds bilaterally, clear to auscultation and percussion. No rales, rhonchi or wheezes noted. No increased work of breathing, no retractions or nasal flaring. Abdomen/GI: Soft, non-tender, with normal bowel sounds. No distension or tympany. No guarding or rebound. No evidence of tenderness throughout. Back: No spinal tenderness. No costovertebral tenderness. Full range of motion. Skin: Warm, dry with normal turgor. Normal color with no rashes, no lesions, and no evidence of cellulitis. MS/ Extremity: Pulses equal, no cyanosis. Neurovascular intact. Full, normal range of motion. Psych: Awake, alert, with orientation to person, place and time. Behavior, mood, and affect are within normal limits. 11:53 Neuro: Orientation: is normal, Mentation: is normal, Memory: is normal, Cerebellar function: is grossly normal, Motor: mild right sided weakness, Sensation: numbness, that is mild, that is moderate, of the right face, right arm and right leg, Gait: is steady, with walker (baby stroller), seizure activity, is not displayed by the patient. Vital Signs: 11:00 BP 179 / 99; Pulse 76; Resp 18; Temp 98.6(O); Pulse Ox 98% on R/A; db 11:45 BP 170 / 100; Pulse 79; Resp 16; Pulse Ox 98% on R/A; iw 12:24 BP 159 / 89; Pulse 86; Resp 18; Pulse Ox 98% on R/A; iw 12:38 BP 163 / 83; Pulse 91; Resp 18; Pulse Ox 98% ; iw 12:58 BP 150 / 78; Pulse 89; Resp 16; Temp 98; Pulse Ox 98% on R/A; Pain 0/10; iw 12:58 Pain Scale: Adult iw NIH Stroke Scale Scores: 11:13 NIHSS Score: 2 iw 11:17 NIHSS Score: 2 snw 12:50 NIHSS Score: 2 iw [place] Coma Score: 11:17 Eye Response: spontaneous(4). Motor Response: obeys commands(6). Verbal Response: snw oriented(5). Total: 15. MDM: 11:09 Patient medically screened. snw 11:17 Differential diagnosis: CVA, TIA, metabolic disorder. Data reviewed: vital signs, snw nurses notes. 11:50 Management of patient was discussed with the following: Dr. David, Neurointensivist, snw target BP SBP<160, no need to reverse Eliquis at present time. Will kindly accept to Neuro ICU for monitoring.. I considered the following discharge prescriptions or medication management in the emergency department Medications were administered in the Emergency Department. See JUL. 11/21 11:06 Order name: CBC with Diff; Complete Time: 11:46 snw 11/21 11:06 Order name: CMP; Complete Time: 12:22 snw 11/21 11:06 Order name: Lipase; Complete Time: 12:22 snw 11/21 11:21 Order name: Glucose, Ancillary Testing; Complete Time: 11:24 EDMS 11/21 11:06 Order name: CT Head Brain wo Cont; Complete Time: 11:32 snw 12 11:06 Order name: IV Saline Lock; Complete Time: 11:32 snw 11/21 11:06 Order name: Labs collected and sent; Complete Time: 11:32 snw 11/21 11:50 Order name: Misc. Order: target BP SBP<160; Complete Time: 12:25 snw EC:40 Rate is 83 beats/min. Rhythm is irregular. Left axis deviation noted. MT interval is snw normal. Clinical impression: NSR w/ Non-specific ST/T Changes and occ PVCs. Administered Medications: 11:56 Drug: Cardene IV 2.5 mg Route: IV; Rate: calculated rate; Site: left wrist; iw 12:20 Follow up: Rate change 5 mg/hr iw 13:02 Follow up: IV Status: Infusion continued upon transfer iw Point of Care Testing: Blood Glucose: 11:13 Blood Glucose: 234 mg/dL; iw Ranges: Critical Glucose Levels:Adult <50 mg/dl or >400 mg/dl <40 mg/dl or >180 mg/dl Disposition Summary: 11/21/22 11:53 Transfer Ordered Transfer Location: [facility] snw Reason: Higher level of care snw Condition: Stable snw Problem: new snw Symptoms: are unchanged snw Accepting Physician: Dr. David(11/21/22 13:02) iw Diagnosis - Nontraumatic acute subdural hemorrhage - sub-acute left frontoparietal 8mm on snw Eliquis Forms: - Medication Reconciliation Form snw - SBAR form snw NIH Stroke Scale - NIH Stroke Score Date: 11/21/2022 Time: 11:13 Total Score = 2 10. Dysarthria (speech clarity - read or repeat words) - 0(Normal) 11. Extinction and Inattention (visual/tactile/auditory/spatial/personal) - 0(No abnormality) 1a. Level of Consciousness (LOC) - 0(Alert) 1b. Level of Consciousness (LOC) (Month \T\ Age) - 0(Both) 1c. LOC Commands (Open \T\ Closes Eyes/Signal Apprentice) - 0(Both) 2. Best Gaze (Lateral Gaze Paresis) - 0(Normal) 3. Visual Field Loss - 0(No visual loss) 4. Facial Palsy - 0(Normal) 5a. Left Arm: Motor (10-second hold) - 0(No drift) 5b. Right Arm: Motor (10-second hold) - 0(No drift) 6a. Left Leg: Motor (5-second hold - always test supine) - 0(No drift) 6b. Right Leg: Motor (5-second hold - always test supine) - 1(Drift) 7. Limb Ataxia (finger/nose \T\ heel/petty - test with eyes open) - 0(Absent) 8. Sensory Loss (pinprick arms/legs/face) - 1(Mild to moderate loss) 9. Best Language: Aphasia (description/naming/reading) - 0(No aphasia) Initials: NIH Stroke Scale - NIH Stroke Score Date: 11/21/2022 Time: 11:17 Total Score = 2 10. Dysarthria (speech clarity - read or repeat words) - 0(Normal) 11. Extinction and Inattention (visual/tactile/auditory/spatial/personal) - 0(No abnormality) 1a. Level of Consciousness (LOC) - 0(Alert) 1b. Level of Consciousness (LOC) (Month \T\ Age) - 0(Both) 1c. LOC Commands (Open \T\ Closes Eyes/Signal Apprentice) - 0(Both) 2. Best Gaze (Lateral Gaze Paresis) - 0(Normal) 3. Visual Field Loss - 0(No visual loss) 4. Facial Palsy - 0(Normal) 5a. Left Arm: Motor (10-second hold) - 0(No drift) 5b. Right Arm: Motor (10-second hold) - 0(No drift) 6a. Left Leg: Motor (5-second hold - always test supine) - 0(No drift) 6b. Right Leg: Motor (5-second hold - always test supine) - 1(Drift) 7. Limb Ataxia (finger/nose \T\ heel/petty - test with eyes open) - 0(Absent) 8. Sensory Loss (pinprick arms/legs/face) - 1(Mild to moderate loss) 9. Best Language: Aphasia (description/naming/reading) - 0(No aphasia) Initials: roni NIH Stroke Scale - NIH Stroke Score Date: 11/21/2022 Time: 12:50 Total Score = 2 10. Dysarthria (speech clarity - read or repeat words) - 0(Normal) 11. Extinction and Inattention (visual/tactile/auditory/spatial/personal) - 0(No abnormality) 1a. Level of Consciousness (LOC) - 0(Alert) 1b. Level of Consciousness (LOC) (Month \T\ Age) - 0(Both) 1c. LOC Commands (Open \T\ Closes Eyes/Signal Apprentice) - 0(Both) 2. Best Gaze (Lateral Gaze Paresis) - 0(Normal) 3. Visual Field Loss - 0(No visual loss) 4. Facial Palsy - 0(Normal) 5a. Left Arm: Motor (10-second hold) - 0(No drift) 5b. Right Arm: Motor (10-second hold) - 0(No drift) 6a. Left Leg: Motor (5-second hold - always test supine) - 0(No drift) 6b. Right Leg: Motor (5-second hold - always test supine) - 1(Drift) 7. Limb Ataxia (finger/nose \T\ heel/petty - test with eyes open) - 0(Absent) 8. Sensory Loss (pinprick arms/legs/face) - 1(Mild to moderate loss) 9. Best Language: Aphasia (description/naming/reading) - 0(No aphasia) Initials: iw Signatures: Dispatcher [employer] Chelo Delaney, JOHNC BRUSH HAND-Csnw Milady Finn RN RN iw Corrections: (The following items were deleted from the chart) 11:17 11:15 The patient has been recently seen by a physician: The patient has been snw recently seen at the [facility] Emergency Department, last week, snw 13:02 11:53 Dr. Frankie tamayo iw
--- NOTE | 2022-11-21 11:54 | ER ---
Nurse's Notes [facility] Name: Matti Juarez Age: 52 yrs Sex: Male : 1970 Arrival Date: 11/21/2022 Time: 10:56 Bed 4 Private MD: Diagnosis: Nontraumatic acute subdural [id number] left frontoparietal 8mm on Eliquis Presentation: 11/21 11:13 Chief complaint: Patient states: numbness to right side of face, right arm, right leg iw since waking at 0900, went to bed between 2-3 am , he also feels weakness on his right side, hx of TIA's , on eliquis. Coronavirus screen: At this time, the client does not indicate any symptoms associated with coronavirus-19. Ebola Screen: Patient negative for fever greater than or equal to 101.5 degrees Fahrenheit, and additional compatible Ebola Virus Disease symptoms Patient denies exposure to infectious person. Patient denies travel to an Ebola-affected area in the 21 days before illness onset. No symptoms or risks identified at this time. Pre-hospital glucose is not applicable to this patient. Initial Sepsis Screen: Does the patient meet any 2 criteria? No. Patient's initial sepsis screen is negative. Does the patient have a suspected source of infection? No. Patient's initial sepsis screen is negative. Risk Assessment: Do you want to hurt yourself or someone else? Patient reports no desire to harm self or others. Onset of symptoms was November 21, 2022. 11:13 Method Of Arrival: Ambulatory iw 11:13 Acuity: JELENA 3 iw 11:44 Acuity: JELENA 2 iw Triage Assessment: 11:13 The onset of the patients symptoms was November 21, 2022 at 02:00. iw Stroke Activation: Symptom onset > 6 hours Physician: Stroke Attending; Name: ; Notified At: ; Arrived At: Physician: Chief Stroke Resident; Name: ; Notified At: ; Arrived At: Physician: Stroke Resident; Name: ; Notified At: ; Arrived At: Physician: ED Attending; Name: ; Notified At: ; Arrived At: Physician: ED Resident; Name: ; Notified At: ; Arrived At: Historical: - Allergies: 11:25 Anesthesia; iw 11:25 Aspirin; iw 11:25 atorvastatin; iw 11:25 Iodinated Contrast Media - IV Dye (cardiac arrest); iw 11:25 Requip; iw 11:25 ropinirole HCl; iw 11:25 SHELLFISH; iw - PMHx: 11:25 cardiac arrest; Diabetes - NIDDM; heart catheterization; Hypertension; iw - PSHx: 11:25 Cholecystectomy; pain pump implant, RIGHT lower abd; spine fusion; spine stimulator, iw LEFT hip; - Immunization history:: Adult Immunizations not up to date. - Social history:: Smoking status: . Screenin:25 [facility] ED Fall Risk Assessment (Adult) History of falling in the last 3 months, iw including since admission Yes- single mechanical fall (1 pt) Confusion or Disorientation No (0 pts) Intoxicated or Sedated No (0 pts) Impaired Gait No (0 pts) Mobility Assist Device Used No (0 pt) Altered Elimination No (0 pt) Score/Fall Risk Level 0 - 2 = Low Risk. Abuse screen: Denies threats or abuse. Denies injuries from another. Nutritional screening: No deficits noted. Tuberculosis screening: No symptoms or risk factors identified. Assessment: 11:13 Reassessment: Code Stroke called. iw 11:13 General: Appears in no apparent distress. Behavior is calm, cooperative. Pain: iw Complains of pain in face and left cheondoism. Neuro: Level of Consciousness is awake, alert, obeys commands, Oriented to person, place, time, situation, Moves all extremities. Full function Reports headache in right in left parietal area, numbness in right arm and right leg weakness in right leg. Cardiovascular: Patient's skin is warm and dry. Respiratory: Respiratory effort is even, unlabored, Respiratory pattern is regular, symmetrical. GI: Abdomen is non-distended. Derm: Skin is intact, is healthy with good turgor, Skin is pink, warm \T\ dry. Musculoskeletal: Range of motion: intact in all extremities. 11:18 Reassessment: patient returned to room from CT. db 11:33 VAN Scoring: Arm Drift: Patients demonstrates NO arm weakness. Patient is VAN Negative. iw TNKase (Tenecteplase) Screening:. 11:49 Pain: Complains of pain in left cheondoism. iw 12:25 Reassessment: Patient appears in no apparent distress at this time. Patient and/or iw family updated on plan of care and expected duration. Pain level reassessed. Patient is alert, oriented x 3, equal unlabored respirations, skin warm/dry/pink. Vital Signs: 11:00 BP 179 / 99; Pulse 76; Resp 18; Temp 98.6(O); Pulse Ox 98% on R/A; db 11:45 BP 170 / 100; Pulse 79; Resp 16; Pulse Ox 98% on R/A; iw 12:24 BP 159 / 89; Pulse 86; Resp 18; Pulse Ox 98% on R/A; iw 12:38 BP 163 / 83; Pulse 91; Resp 18; Pulse Ox 98% ; iw 12:58 BP 150 / 78; Pulse 89; Resp 16; Temp 98; Pulse Ox 98% on R/A; Pain 0/10; iw 12:58 Pain Scale: Adult iw [place] Coma Score: 11:17 Eye Response: spontaneous(4). Motor Response: obeys commands(6). Verbal Response: snw oriented(5). Total: 15. NIH Stroke Scale Scores: 11:13 NIHSS Score: 2 iw 11:17 NIHSS Score: 2 snw 12:50 NIHSS Score: 2 iw ED Course: 10:57 Patient arrived in ED. im 11:05 Chelo Dewey FNP-C is PHCP. snw 11:05 Nancy Greer MD is Attending Physician. snw 11:05 Arm band placed on Patient placed in an exam room, on a stretcher. ll1 11:05 Patient has correct armband on for positive identification. iw 11:17 CT Head Brain wo Cont In Process Unspecified. EDMS 11:24 Inserted saline lock: 20 gauge in left wrist, using aseptic technique. Blood collected. hb 11:25 Triage completed. iw 11:32 Milady Finn, RN is Primary Nurse. iw 11:42 EKG done, by ED staff, reviewed by Chelo ELLER. em1 12:25 Provided Education on: hemorrhagic stroke, cardene drip . iw 13:01 No provider procedures requiring assistance completed. Patient transferred, IV remains iw in place. Administered Medications: 11:56 Drug: Cardene IV 2.5 mg Route: IV; Rate: calculated rate; Site: left wrist; iw 12:20 Follow up: Rate change 5 mg/hr iw 13:02 Follow up: IV Status: Infusion continued upon transfer iw Medication: 12:42 VIS not applicable for this client. iw Point of Care Testing: Blood Glucose: 11:13 Blood Glucose: 234 mg/dL; Ranges: Outcome: 11:53 ER care complete, transfer ordered by MD. tamayo 13:00 Transferred by ground EMS to [facility], Transfer form completed. iw X-rays sent w/ patient. 13:00 Condition: stable 13:00 Instructed on the need for transfer, Demonstrated understanding of instructions. 13:02 Patient left the ED. NIH Stroke Scale - NIH Stroke Score Date: 11/21/2022 Time: 11:13 Total Score = 2 10. Dysarthria (speech clarity - read or repeat words) - 0(Normal) 11. Extinction and Inattention (visual/tactile/auditory/spatial/personal) - 0(No abnormality) 1a. Level of Consciousness (LOC) - 0(Alert) 1b. Level of Consciousness (LOC) (Month \T\ Age) - 0(Both) 1c. LOC Commands (Open \T\ Closes Eyes/Industrial Maintenance Manager) - 0(Both) 2. Best Gaze (Lateral Gaze Paresis) - 0(Normal) 3. Visual Field Loss - 0(No visual loss) 4. Facial Palsy - 0(Normal) 5a. Left Arm: Motor (10-second hold) - 0(No drift) 5b. Right Arm: Motor (10-second hold) - 0(No drift) 6a. Left Leg: Motor (5-second hold - always test supine) - 0(No drift) 6b. Right Leg: Motor (5-second hold - always test supine) - 1(Drift) 7. Limb Ataxia (finger/nose \T\ heel/petty - test with eyes open) - 0(Absent) 8. Sensory Loss (pinprick arms/legs/face) - 1(Mild to moderate loss) 9. Best Language: Aphasia (description/naming/reading) - 0(No aphasia) Initials: NIH Stroke Scale - NIH Stroke Score Date: 11/21/2022 Time: 11:17 Total Score = 2 10. Dysarthria (speech clarity - read or repeat words) - 0(Normal) 11. Extinction and Inattention (visual/tactile/auditory/spatial/personal) - 0(No abnormality) 1a. Level of Consciousness (LOC) - 0(Alert) 1b. Level of Consciousness (LOC) (Month \T\ Age) - 0(Both) 1c. LOC Commands (Open \T\ Closes Eyes/Industrial Maintenance Manager) - 0(Both) 2. Best Gaze (Lateral Gaze Paresis) - 0(Normal) 3. Visual Field Loss - 0(No visual loss) 4. Facial Palsy - 0(Normal) 5a. Left Arm: Motor (10-second hold) - 0(No drift) 5b. Right Arm: Motor (10-second hold) - 0(No drift) 6a. Left Leg: Motor (5-second hold - always test supine) - 0(No drift) 6b. Right Leg: Motor (5-second hold - always test supine) - 1(Drift) 7. Limb Ataxia (finger/nose \T\ heel/petty - test with eyes open) - 0(Absent) 8. Sensory Loss (pinprick arms/legs/face) - 1(Mild to moderate loss) 9. Best Language: Aphasia (description/naming/reading) - 0(No aphasia) Initials: pending sale to [facility] NIH Stroke Scale - NIH Stroke Score Date: 11/21/2022 Time: 12:50 Total Score = 2 10. Dysarthria (speech clarity - read or repeat words) - 0(Normal) 11. Extinction and Inattention (visual/tactile/auditory/spatial/personal) - 0(No abnormality) 1a. Level of Consciousness (LOC) - 0(Alert) 1b. Level of Consciousness (LOC) (Month \T\ Age) - 0(Both) 1c. LOC Commands (Open \T\ Closes Eyes/Industrial Maintenance Manager) - 0(Both) 2. Best Gaze (Lateral Gaze Paresis) - 0(Normal) 3. Visual Field Loss - 0(No visual loss) 4. Facial Palsy - 0(Normal) 5a. Left Arm: Motor (10-second hold) - 0(No drift) 5b. Right Arm: Motor (10-second hold) - 0(No drift) 6a. Left Leg: Motor (5-second hold - always test supine) - 0(No drift) 6b. Right Leg: Motor (5-second hold - always test supine) - 1(Drift) 7. Limb Ataxia (finger/nose \T\ heel/petty - test with eyes open) - 0(Absent) 8. Sensory Loss (pinprick arms/legs/face) - 1(Mild to moderate loss) 9. Best Language: Aphasia (description/naming/reading) - 0(No aphasia) Initials: iw Signatures: Dispatcher [employer] EDMS Chelo Dewey, OLI-C COMMUNICATIONS TECHNICIAN-Csnw Milady Finn, USMAN MARY iw Brown Daniels em1 Batsheva Leos RN RN hb Porsche Abreu RN RN ll1 Isabel Cristina RN RN db Michelle Ramires Corrections: (The following items were deleted from the chart) 11:28 11:00 BP 179 / 99; Pulse 76bpm; Resp 18bpm; Pulse Ox 98% RA; db db 11:29 11:24 Inserted saline lock: 20 gauge in left forearm, using aseptic technique. hb Blood collected. hb 11:49 11:45 Pulse 79bpm; Resp 16bpm; Pulse Ox 98% RA; iw iw 13:02 12:58 BP 150 / 78; Pulse 89bpm; Resp 16bpm; Pulse Ox 98% RA; iw iw
[2022-11-21 11:55] LABS: Albumin 3.1 g/dL (3.4-5.0); Bilirubin Total 0.5 mg/dL (0.2-1.0); Potassium 4.1 mEq/L (3.5-5.1); Protein, Total 7.8 g/dL (6.4-8.2)
[2022-11-21] MEDS ORDERED: Nicardipine/NS 25 MG/250 ML KIT IV ONE (12:01)
[2022-11-21 13:59] VITALS: O2SAT 98
[2022-11-21 14:05] VITALS: BP 150/78; TEMP 98
[2022-11-21 14:14] LABS: Absolute Lymphocytes (CBC) 2.1 K/uL (0.7-4.9); Hematocrit 46.2 % (39.6-49.0); Lymphocytes % 39.1 % (15.3-44.8); MCV 92.5 fL (80-100); MPV 9.4 fL (7.6-11.3); RBC Red Blood Cell Count 4.99 M/uL (4.33-5.43)
[2022-11-21 14:27] LABS: Potassium 3.5 mEq/L (3.5-5.1)
[2022-11-21 22:22] LABS: Protime INR ND
--- NOTE | 2022-11-22 15:47 | EKG ---
Test Date: 2022-11-21 Test Time: 11:38:50 Pbx Repairer: NEHEMIAS MEASUREMENT RESULTS: Intervals: Rate: 83 VT: 156 QRSD: 86 QT: 340 QTc: 399 [place]: P: 18 VT: 156 QRS: -38 T: 13 INTERPRETIVE STATEMENTS: Sinus rhythm with occasional premature ventricular complexes Left axis deviation Abnormal ECG Compared to ECG 08/31/2022 03:55:41 Ventricular premature complex(es) now present Electronically Signed On 11-22-22 15:44:46 CDT by Sean Antoine
== END 2022-11-21 13:02 | disposition short-term general hospital (02) ==
LOC: ER 10:56
DX: I62.01 Nontraumatic acute subdural hemorrhage (principal); R29.702 NIHSS score 2; I10 Essential (primary) hypertension; Z79.01 Long term (current) use of anticoagulants; E11.9 Type 2 diabetes mellitus without complications; Z88.4 Allergy status to anesthetic agent; Z88.6 Allergy status to analgesic agent; Z88.8 Allergy status to other drugs, medicaments and biological substances; Z91.013 Allergy to seafood; Z91.041 Radiographic dye allergy status
CPT/HCPCS: 36415; 70450; 80048; 80053; 82947; 83690; 85025; 85610; 93005

== ENCOUNTER 2022-12-11 13:13 | Emergency (ER) | payer OTHER ==
--- OUTSIDE RECORDS SUMMARY | 2022-12-11 13:39 | XMS REPORT | Continuity of Care Document ---
:1970 Author Organization [facility] t Address [address] [address] [place] [address] Care Team Providers Name Role Phone NONE Primary Care Physician Unavailable AMANDA HANEY Attending Clinician Unavailable BELLE CATES Attending Clinician Unavailable BLESSING YANES Attending Clinician Unavailable Blessing Murphy Attending Clinician Doctor Unassigned, [place] Attending Clinician Unavailable Jamila Phillips MD Attending Clinician [phone] DILIP BOLTON Attending Clinician Unavailable JAMILA PHILLIPS Attending Clinician Unavailable Fabian [facility] Attending Clinician Dalila Rodriguez MD Attending Clinician [phone] Belle Cates MD Attending Clinician [phone] Mariangel Luciano MD Attending Clinician Medina BRYSON, Amanda Luna Attending Clinician [phone] Dilip Bolton MD Attending Clinician Wilfredo RECOVERY COORDINATORHue Burnett Attending Clinician DALILA RODRIGUEZ Attending Clinician Unavailable CANDIDA PAUL Attending Clinician Unavailable Candida Poole S Attending Clinician Jeremy BRYSON, Maggie Attending Clinician Alfred Khan MD Attending Clinician TEREZA MAGALLANES Attending Clinician Unavailable CASSY CORRIGAN Attending Clinician Unavailable CINTHIA Attending Clinician Unavailable Kay Bush MD Attending Clinician ADITYA CHENG Attending Clinician Unavailable Mariola Romero Attending Clinician Unavailable Jacqui Gómez LVN Attending Clinician Unavailable Roman, Ang - Db Attending Clinician Unavailable Ashley Rodriguez RN Attending Clinician Unavailable Yissel Kelly Attending Clinician Unavailable Jany Vaughan Attending Clinician BETTY TREVIZO Attending Clinician Unavailable Betty Trevizo DO Attending Clinician KAY BUSH Attending Clinician Unavailable KORY MATOS Attending Clinician Unavailable SOHA KNOX Attending Clinician Unavailable PRINCESS ZACARIAS Attending Clinician Unavailable SHANNAN WILCOX Attending Clinician Unavailable Cass Crespo MD Attending Clinician CASS CRESPO Attending Clinician Unavailable Therapist, Adc Respiratory Attending Clinician Unavailable Thanh Gay MD Attending Clinician THANH GAY Attending Clinician Unavailable Moralesmarco a ROBLES, Betty Attending Clinician BETTY MORALES Attending Clinician Unavailable Sindy Oneill MD Attending Clinician SINDY ONEILL Attending Clinician Unavailable Carlo BRYSON, Kory Leach Attending Clinician [phone] TOBI OLVERA Attending Clinician Unavailable TOBI OLVERA [...] Clinician Unavailable DOMINGO AVALOS Attending Clinician Unavailable BELIA METZ Attending Clinician Unavailable LORENE MONTANO Attending Clinician Unavailable UNKNOWN, ATTENDING Attending Clinician Unavailable Vtc-Lab Attending Clinician Unavailable Samir Conner MD Attending Clinician SAMIR CONNER Attending Clinician Unavailable Pcp-Lab Attending Clinician Unavailable Unknown, Attending Attending Clinician Unavailable Salvatore Ambriz MD Attending Clinician MILO NY Attending Clinician Unavailable Johan Cuellar Attending Clinician Trell Villagomez MD Attending Clinician Milo Ny MD Attending Clinician Alvarez BRYSON, Rosanne Hawk Attending Clinician SHANNEN SIN Attending Clinician Unavailable ALYSSA WU Attending Clinician Unavailable Carrie BRYSON, Juan Attending Clinician Marleen Attending Clinician Unavailable PATI HONEYCUTT Attending Clinician Unavailable Klarissa BRYSON, Elver Santiago Attending Clinician [phone] Tao Metz MD, Belia Eli Attending Clinician Donta MARY, Nicky Attending Clinician Dante BRYSON, Mary Attending Clinician Alma BRYSON, Mikey Attending Clinician [phone] Emiliano Cheung MD Attending Clinician Sean Antoine Attending Clinician Unavailable ZHEN ZEPEDA M.D. Attending Clinician Unavailable RICHARD BRYAN Attending Clinician Unavailable JUMANA SOLO Attending Clinician Unavailable MATT RAMOS Attending Clinician Unavailable MIKAELA MAN Attending Clinician Unavailable STEVEN WILLINGHAM Attending Clinician Unavailable KERRY PUTNAM Attending Clinician Unavailable Talat Abdul Attending Clinician Unavailable Driss Bain Attending Clinician Unavailable BELLE CATES Admitting Clinician Unavailable CANDIDA PAUL Admitting Clinician Unavailable CINTHIA Admitting Clinician Unavailable BLESSING YANES Admitting Clinician Unavailable Mariola Romero Admitting Clinician Unavailable CASS CRESPO Admitting Clinician Unavailable SINDY ONEILL Admitting Clinician Unavailable Marleen Admitting Clinician Unavailable Alma BRYSON, Mikey Admitting Clinician [phone] Sean Antoine Admitting Clinician Unavailable MATT RAMOS Admitting Clinician Unavailable Payers Payer Name Policy Type Policy Number Effective Date Expiration Date Micheline holloway [employer] MEDICARE [id number] 2022 00:00:00 [place]ID [place] [id number] 2022 00:00:00 WELLMED/[facility] DUAL [id number] 2021 COMP HMO D SNP 00:00:00 [place] [id number] 2018 00:00:00 [facility] - [id number] DUAL COMPLETE - DUAL ELIGIBLE - SNP (MEDICARE-MEDICAID REPLACEMENT HMO) DANIELA TOTAL CARE [id number] 2020 MEDICARE HMO DSNP 00:00:00 MEDICARE-PART B 5 [id number] 2020 00:00:00 [facility] [id number] 2017 DUAL COMPLETE 00:00:00 [place] ACS - [id number] TMHP - TRADITIONAL Problems Condition Condition Condition Status Onset Resolution Last Treating Co mments Source Name Details Category Date Date Treatment Clinician Date Subdural Subdural Disease Recurre [facility] [address] Fatty Fatty Disease Active 2021-05 Univers liver liver 0-06 ity of 00:00: [place] [facility] Elevated Elevated Disease Active Unive rs AST (SGOT) AST (SGOT) 9-26 it y of 00:00: [place] [facility] History of History of Disease Active U nivers transient transient 5-05 ity of ischemic ischemic 00:00: [place] attack attack 00 Medical (TIA) (TIA) Branch Chest pain Chest pain Disease Active U nivers 7-23 ity of 00:00: [place] [facility] Generalize Generalize Disease Active 2017-05 M ethodi d weakness d weakness 2-23 st 00:00: Hospita 00 l Arthralgia Arthralgia Disease Active 2017-05 M ethodi of of 2-20 st multiple multiple 00:00: Hospit a sites sites 00 l Nonspecifi Nonspecifi Disease Active 2017-05 U nivers c chest c chest 0-17 ity of pain pain 00:00: [place] [facility] Obesity Obesity Disease Active 2017-05 Methodi (BMI (BMI 0-17 st 30-39.9) 30-39.9) 00:00: Hospit a 00 l Cellulitis Cellulitis Disease Active M ethodi 8-11 st 00:00: Hospita 00 l Occlusion Occlusion Disease Recurre Un alfonso and and nce 7-30 ity of stenosis stenosis 00:00: [place] of of 00 Medical multiple multiple Branch and and 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 Type 2 Type 2 Disease Recurre Univers diabetes diabetes nce 12-09 ity of mellitus mellitus 00:00: [place] with other with other 00 Me dical specified specified Bran ch complicati complicati on on SANDHYA SANDHYA Disease Recurre Univers (obstructi (obstructi nce 7 it y of ve sleep ve sleep 00:00: [place] apnea) apnea) 00 Medical Branch Essential Essential Disease Active Met hodi hypertensi hypertensi 12-09 st on on 00:00: Hospita 00 l Mixed Mixed Disease Active Methodi hyperlipid hyperlipid 12-[address] emia emia 00:00: Hospita 00 l Chest Chest Disease Active 2016-05 Methodi pain, rule pain, rule 0 st out acute out acute 00:00: Hosp [...] ents Source Name Type Date Date Clinician IODINE Allergy Active High Anaphylaxis 0 [facility] 11-21 00:00: 00 LISINOPR Allergy Active High Sob 2022-0 [facility] IL 11-21 00:00: 00 SHELLFIS Allergy Active High Anaphylaxis 2022-0 [facility] H 11-21 DERIVED 00:00: 00 SHELLFIS Allergy Active High Anaphylaxis 2022-0 SL HV H 11-21 CONTAINI 00:00: NG 00 PRODUCTS ROPINIRO Allergy Active Other [facility] LE 11-21 00:00: 00 ATORVAST Allergy Active Low Palpitations 2022- S [facility] ATIN 11-21 00:00: 00 Shellfis Propensi Active Anaphylaxis [facility] ty to 7-12 [facility] Containi adverse 00:00: Medical ng reaction 00 Center Products s Atorvast Propensi Active Palpitations [facility] at[facility] ty to 12 [facility] adverse 00:00: Medical reaction 00 Center s Iodine Propensi Active Anaphylaxis [facility] ty to 712 [facility] adverse 00:00: Medical reaction 00 Center s Lisinopr Propensi Active Shortness Of [facility] il ty to Breath 12 [facility] adverse 00:00: Medical reaction 00 Center s Ropiniro Propensi Active Other (See [facility] I [facility] le ty to Comments) 11-21 [facility] adverse 00:00: Medical reaction 00 Center s Shellfis Propensi Active Anaphylaxis [facility] ty to 11-21 [facility] Derived adverse 00:00: Medical reaction 00 Center s Seafood/ Food Active Anaphylaxis 2018-0 Uni vers Fish Allergy 7-23 ity of 00:00: [address] Branch SEAFOOD/ Food Active High Anaphylaxis 2018-0 Uni vers FISH 7-23 ity of 00:00: [place] 00 [facility] Branch lisinopr DA Active [place] 2019-0 [facility] [...] lisinopr DA Active [place] 2019-0 [facility] il 1- [place] 00:00: d 00 [facility] iodine DA Active [place] 2018-0 [facility] 05-13 [place] 00:00: d 00 [facility] Center lorazepa DA Active [place] 2018-0 [facility] m 1 [place] 00:00: d 00 [facility] aspirin DA Active [place] 2018-0 [facility] 05-13 [place] 00:00: d 00 [facility] ropiniro DA Active [place] 2018-0 [facility] le 05-13 [place] 00:00: d 00 [facility] Lisinopr Propensi Active Cough 2017-05 Persisten Uni vers il ty to 0-17 t cough ity of adverse 00:00: [place] reaction 00 Medical s to Branch drug LISINOPR DRUG Active Med COUGH 2017-05 Univers IL INGREDI 0-17 ity of 00:00: [place] 00 [facility] lorazepa DA Active MO 2017-05 [facility] m 0-14 [place] 00:00: d 00 [facility] lisinopr DA Active [place] 0 [facility] il 8-25 Clear 00:00: [place] 00 [facility] iodine DA Active [place] [facility] 8-25 Clear 00:00: [place] 00 [facility] aspirin DA Active [place] [facility] 8-25 Clear 00:00: [place] 00 [facility] ropiniro DA Active [place] [facility] le 8-25 Clear 00:00: [place] 00 [facility] Atorvast Propensi Active Other - See CoughCou g Univers atin ty to comments 7-30 h ity of adverse 00:00: [place] reaction 00 Medical s Branch ATORVAST DRUG Active Low Unknown-Cmnt Un alfonso ATIN INGREDI 730 ity of 00:00: [place] 00 Medical Branch Atorvast Propensi Active Other (See Cough Me thodi atin ty to Comments) 7-30 st adverse 00:00: Hospita reaction 00 l [...] ers LE INGREDI 10-11 ity of 00:00: Medical Branch SHELLFIS DRUG Active High Palpitations Un alfonso H INGREDI 10-11 ity of DERIVED 00:00: Medical Branch Aspirin Propensi Active GI Bleeding GI Me thodi ty to 10-[address] adverse 00:00: Hospita reaction 00 l s to drug Other Propensi Active Anesthesi Metho di ty to 10-11 a: during st adverse 00:00: [facility] a reaction 00 er and l s back surgery pt went into cardiac arrest. ([facility]) . Ropiniro Propensi Active Hypotensi Met hodi [...] 00 -Cardiac l s to arrest drug NO KNOWN Allergy Active [facility] Iodine drug Active [facility] allergy Physici ans Family History Family Member Diagnosis Comments Start Date Stop Date Source Natural father Hypertension [facility] Natural father Stroke [facility] Natural father Diabetes type II [facility] Maternal grandmother Cancer [facility] Maternal grandmother Diabetes [facility] Natural mother Diabetes [facility] Natural mother Hypertension [facility] Natural mother Stroke [facility] Natural sister Cancer [facility] Natural sister Diabetes type II [facility] Natural sister Ovarian cancer [facility] Natural brother Leukemia [facility] Maternal grandfather No Known Problems [facility] Paternal grandfather No Known Problems [facility] Paternal grandmother No Known Problems [facility] Social History Social Habit Start Date Stop Date Quantity Comments Source Gender identity [facility] Sexual orientation [facility] Exposure to 2022-03-24 2022-04-03 Not sure University SARS-CoV-2 (event) 00:00:00 13:26:00 [facility] Tobacco use and 2022-02-02 2022-02-02 Smokeless Universit y of exposure 00:00:00 00:00:00 tobacco non-user [facility] History of Social 2019-01-02 2019-01-[address] function 00:00:00 00:00:00 Hospital Alcohol intake 2018-05-01 2018-05-01 Current Spiritism 00:00:00 00:00:00 non-drinker of Hospital alcohol (finding) Sex Ass[birth year] At [birth year] GLENIS Salvador 00:00:00 00:00:00 [facility] Smoking Status Start Date Stop Date Source Never smoked tobacco [facility] Medications Ordered Filled Start Stop Current Ordering Indication Dosage Frequency Signature Comments Components Source Medication Medication Date Date Medication? Clinician (SIG) Name Name metoprolol 2022- No 25mg Take 1 Univ ers tartrate 25 7- 07-19 tablet by it y of mg tablet 12:20: 00:00 mouth in [place] as 19 :00 the Medical morning Branch and 1 tablet in the evening. metoprolol 2022- No 25mg Take 1 Univ ers tartrate 25 7-19 07-19 tablet by it y of mg tablet 12:20: 00:00 mouth in [place] 19 :00 the Medical morning Branch and 1 tablet in the evening. metoprolol 2022- No 25mg Take 1 Univ ers tartrate 25 7-19 07-19 tablet by it y of mg tablet 12:20: 00:00 mouth in [place] 19 :00 the Medical morning Branch and 1 tablet in the evening. metoprolol 2022- No 25mg Take 1 Univ ers tartrate 25 7-19 07-19 tablet by it y of mg tablet 12:20: 00:00 mouth in [place] 19 :00 the Medical morning Branch and 1 tablet in the evening. metFORMIN Yes [id number] 1000mg Take 1 Univers 1,000 mg 7-19 tablet by ity of tablet 00:00: mouth in [place] 00 the Medical morning Branch and 1 tablet in the evening. Take with meals. MUST BE SEEN FOR FURTHER REFILLS pantoprazol Yes [id number] 40mg Take 1 Univers e 40 mg EC 7-19 tablet by ity of tablet 00:00: mouth in [place] 00 the Medical morning. Branch metoprolol Yes [id number] 25mg Take 1 U nivers tartrate 25 7-19 tablet by ity of mg tablet 00:00: [place] the [place] morning Branch and 1 tablet in the evening. Blood-Gluco 2022-0 Yes [id number] Use as Univers se Meter 7-19 directed. ity of (ONETOUCH 00:00: May [place] VERIO FLEX 00 substitute Med ical START) Kit brand Branch preferred by insurance blood sugar 0 Yes [id number] Test bid Univers diagnostic 7-19 daily for ity of (ONETOUCH 00:00: diagnosis [place] as VERIO TEST 00 code E11.9 Med ical STRIPS) May Branch strip substitute brand preferred by insurance Lancing Yes [id number] Test bid Un alfonso Device with 7-19 daily. Use it y of Lancets 00:00: as [place] (ONE TOUCH 00 directed. Medi lula DELICA) Kit May Branch substitute brand preferred by insurance metFORMIN Yes [id number] 1000mg Take 1 Univers 1,000 mg 7-19 tablet by ity of tablet 00:00: mouth in [place] the Medical morning Branch and 1 tablet in the evening. Take with meals. MUST BE SEEN FOR FURTHER REFILLS pantoprazol 2022-0 Yes [id number] 40mg Take 1 Univers e 40 mg EC 7-19 tablet by ity of tablet 00:00: mouth in [place] 00 the Medical morning. Branch metoprolol 2022- Yes [id number] 25mg Take 1 U nivers tartrate 25 7-19 tablet by ity of mg tablet 00:00: [place] the [place] morning Branch and 1 tablet in the evening. Blood-Gluco 2022-0 Yes [id number] Use as Univers se Meter 7-19 directed. ity of (ONETOUCH 00:00: May [place] VERIO FLEX 00 substitute Med ical START) Kit brand Branch preferred by insurance blood sugar 2022-0 Yes [id number] Test bid Univers diagnostic 7-19 daily for ity of (ONETOUCH 00:00: diagnosis [place] VERIO TEST 00 code E11.9 Med ical STRIPS) May Branch strip substitute brand preferred by insurance Lancing Yes [id number] Test bid Un alfonso Device with 7-19 daily. Use it y of Lancets 00:00: as [place] (ONE TOUCH 00 directed. [facility]) Kit May Branch substitute brand preferred by insurance metFORMIN Yes [id number] 1000mg Take 1 Univers 1,000 mg 7-19 tablet by ity of tablet 00:00: mouth in [place] the Medical morning Branch and 1 tablet in the evening. Take with meals. MUST BE SEEN FOR FURTHER REFILLS pantoprazol Yes [id number] 40mg Take 1 Univers e 40 mg EC 7-19 tablet by ity of tablet 00:00: mouth in [place] the Medical morning. Branch metoprolol Yes [id number] 25mg Take 1 U nivers tartrate 25 7-19 tablet by ity of mg tablet 00:00: mouth in [facility] the Medical morning Branch and 1 tablet in the evening. Blood-Gluco Yes [id number] Use as Univers se Meter 7-19 directed. ity of (ONETOUCH 00:00: May [place] VERIO FLEX 00 substitute Med ical START) Kit brand Branch preferred by insurance blood sugar 0 Yes [id number] Test bid Univers diagnostic 7-19 daily for ity of (ONETOUCH 00:00: diagnosis [place] VERIO TEST 00 code E11.9 Med ical STRIPS) May Branch strip substitute brand preferred by insurance Lancing Yes [id number] Test bid Un alfonso Device with 7-19 daily. Use it y of Lancets 00:00: as [place] (ONE TOUCH 00 directed. [facility]) Kit May Branch substitute brand preferred by insurance metFORMIN Yes [id number] 1000mg Take 1 Univers 1,000 mg 7-19 tablet by ity of tablet 00:00: mouth in [place] the Medical morning Branch and 1 tablet in the evening. Take with meals. MUST BE SEEN FOR FURTHER REFILLS pantoprazol 2022-0 Yes [id number] 40mg Take 1 Univers e 40 mg EC 7-19 tablet by ity of tablet 00:00: mouth in [place] the Medical morning. Branch metoprolol 0 Yes [id number] 25mg Take 1 U nivers tartrate 25 7-19 tablet by ity of mg tablet 00:00: mouth in [facility] the Medical morning Branch and 1 tablet in the evening. Blood-Gluco 2022-0 Yes [id number] Use as Univers se Meter 7-19 directed. ity of (ONETOUCH 00:00: May [place] VERIO FLEX 00 substitute Med ical START) Kit brand Branch preferred by insurance blood sugar 2022-0 Yes [id number] Test bid Univers diagnostic 7-19 daily for ity of (ONETOUCH 00:00: diagnosis [place] VERIO TEST 00 code E11.9 Med ical STRIPS) May Branch strip substitute brand preferred by insurance Lancing 0 Yes [id number] Test bid Un alfonso Device with 7-19 daily. Use it y of Lancets 00:00: as [place] (ONE TOUCH 00 directed. Medi lula DELICA) Kit May Branch substitute brand preferred by insurance metFORMIN 2022-0 Yes [id number] 1000mg Take 1 Univers 1,000 mg 7-19 tablet by ity of tablet 00:00: mouth in [place] [address] the Medical morning Branch and 1 tablet in the evening. Take with meals. MUST BE SEEN FOR FURTHER REFILLS pantoprazol 2022-0 Yes [id number] 40mg Take 1 Univers e 40 mg EC 7-19 tablet by ity of tablet 00:00: mouth in [place] [address] the morning. Branch metoprolol 2022-0 Yes [id number] 25mg Take 1 U nivers tartrate 25 7-19 tablet by ity of mg tablet 00:00: mouth in [facility] the Medical morning Branch and 1 tablet in the evening. Blood-Gluco 2022-0 Yes [id number] Use as Univers se Meter 7-19 directed. ity of (ONETOUCH 00:00: May [place] VERIO FLEX 00 substitute Med ical START) Kit brand Branch preferred by insurance blood sugar 2022-0 Yes [id number] Test bid Univers diagnostic 7-19 daily for ity of (ONETOUCH 00:00: diagnosis [place] VERIO TEST 00 code E11.9 Med ical STRIPS) May Branch strip substitute brand preferred by insurance Lancing 0 Yes [id number] Test bid Un alfonso Device with 7-19 daily. Use it y of Lancets 00:00: as [place] (ONE TOUCH 00 directed. [facility]) Kit May Branch substitute brand preferred by insurance metFORMIN 0 Yes [id number] 1000mg Take 1 Univers 1,000 mg 7-19 tablet by ity of tablet 00:00: mouth in [place] the Medical morning Branch and 1 tablet in the evening. Take with meals. MUST BE SEEN FOR FURTHER REFILLS pantoprazol 2022-0 Yes [id number] 40mg Take 1 Univers e 40 mg EC 7-19 tablet by ity of tablet 00:00: mouth in [place] the Medical morning. Branch metoprolol 2022-0 Yes [id number] 25mg Take 1 U nivers tartrate 25 7-19 tablet by ity of mg tablet 00:00: mouth in [facility] the morning Branch and 1 tablet in the evening. Blood-Gluco 0 Yes [id number] Use as Univers se Meter 7-19 directed. ity of (ONETOUCH 00:00: May [place] VERIO FLEX 00 substitute Med ical START) Kit brand Branch preferred by insurance blood sugar 0 Yes [id number] Test bid Univers diagnostic 7-19 daily for ity of (ONETOUCH 00:00: diagnosis [place] VERIO TEST 00 code E11.9 Med ical STRIPS) May Branch strip substitute brand preferred by insurance Lancing 0 Yes [id number] Test bid Un alfonso Device with 7-19 daily. Use it y of Lancets 00:00: as [place] (ONE TOUCH 00 directed. [facility]) Kit May Branch substitute brand preferred by insurance metFORMIN 0 Yes [id number] 1000mg Take 1 Univers 1,000 mg 7-19 tablet by ity of tablet 00:00: mouth in [place] the Medical morning Branch and 1 tablet in the evening. Take with meals. MUST BE SEEN FOR FURTHER REFILLS pantoprazol 2022-0 Yes [id number] 40mg Take 1 Univers e 40 mg EC 7-19 tablet by ity of tablet 00:00: mouth in [place] 00 the Medical morning. Branch metoprolol 2022-0 Yes [id number] 25mg Take 1 U nivers tartrate 25 7-19 tablet by ity of mg tablet 00:00: mouth in [facility] the Medical morning Branch and 1 tablet in the evening. Blood-Gluco 2022-0 Yes [id number] Use as Univers se Meter 7-19 directed. ity of (ONETOUCH 00:00: May [place] VERIO FLEX 00 substitute Med ical START) Kit brand Branch preferred by insurance blood sugar Yes [id number] Test bid Univers diagnostic 7-19 daily for ity of (ONETOUCH 00:00: diagnosis [place] VERIO TEST 00 code E11.9 Med ical STRIPS) May Branch strip substitute brand preferred by insurance Lancing Yes [id number] Test bid Un alfonso Device with 7-19 daily. Use it y of Lancets 00:00: as [place] (ONE TOUCH directed. [facility] lula DEL[facility] Ink) Kit May Branch substitute brand preferred by insurance metFORMIN Yes [id number] 1000mg Take 1 Univers 1,000 mg 7-19 tablet by ity of tablet 00:00: mouth in the Medical morning Branch and 1 tablet in the evening. Take with meals. MUST BE SEEN FOR FURTHER REFILLS pantoprazol Yes [id number] 40mg Take 1 Univers e 40 mg EC 7-19 tablet by ity of tablet 00:00: mouth in the Medical morning. Branch metoprolol Yes [id number] 25mg Take 1 U nivers tartrate 25 7-19 tablet by ity of mg tablet 00:00: mouth in [facility] the Medical morning Branch and 1 tablet in the evening. Blood-Gluco Yes [id number] Use as Univers se Meter 7-19 directed. ity of (ONETOUCH 00:00: May [place] VERIO FLEX 00 substitute Med ical START) Kit brand Branch preferred by insurance blood sugar Yes [id number] Test bid Univers diagnostic 7-19 daily for ity of (ONETOUCH 00:00: diagnosis [place] VERIO TEST 00 code E11.9 Med ical STRIPS) May Branch strip substitute brand preferred by insurance Lancing Yes [id number] Test bid Un alfonso Device with 7-19 daily. Use it y of Lancets 00:00: as [place] (ONE TOUCH 00 directed. Medi lula DELICA) Kit May Branch substitute brand preferred by insurance metFORMIN 0 Yes [id number] 1000mg Take 1 Univers 1,000 mg 7-19 tablet by ity of tablet 00:00: mouth in the Medical morning Branch and 1 tablet in the evening. Take with meals. MUST BE SEEN FOR FURTHER REFILLS pantoprazol Yes [id number] 40mg Take 1 Univers e 40 mg EC 7-19 tablet by ity of tablet 00:00: mouth in [place] 00 the Medical morning. Branch metoprolol Yes [id number] 25mg Take 1 U nivers tartrate 25 7-19 tablet by ity of mg tablet 00:00: [place] the Medical morning Branch and 1 tablet in the evening. Blood-Gluco 2022-0 Yes [id number] Use as Univers se Meter 7-19 directed. ity of (ONETOUCH 00:00: May [place] VERIO FLEX 00 substitute Med ical START) Kit brand Branch preferred by insurance blood sugar Yes [id number] Test bid [facility] diagnostic 7-19 daily for ity of (ONETOUCH 00:00: diagnosis Adrien as VERIO TEST 00 code E11.9 Med ical STRIPS) May Branch strip substitute brand preferred by insurance Lancing Yes [id number] Test bid Un alfonso Device with 7-19 daily. Use it y of Lancets 00:00: as [place] (ONE TOUCH 00 directed. Medi lula DELICA) Kit May Branch substitute brand preferred by insurance metFORMIN Yes [id number] 1000mg Take 1 [facility] 1,000 mg 7-19 tablet by ity of tablet 00:00: mouth in [place] 00 the Medical morning Branch and 1 tablet in the evening. Take with meals. MUST BE SEEN FOR FURTHER REFILLS pantoprazol 2022-0 Yes [id number] 40mg Take 1 [facility] e 40 mg EC 7-19 tablet by ity of tablet 00:00: mouth in [place] 00 the Medical morning. Branch metoprolol Yes [id number] 25mg Take 1 [facility] nivers tartrate 25 7-19 tablet by ity of mg tablet 00:00: mouth in [place] the Medical morning Branch and 1 tablet in the evening. Blood-Gluco 2022-0 Yes [id number] Use as [facility] se Meter 7-19 directed. ity of (ONETOUCH 00:00: May [place] VERIO FLEX 00 substitute Med ical START) Kit brand Branch preferred by insurance blood sugar 2022-0 Yes [id number] Test bid [facility] diagnostic 7-19 daily for ity of (ONETOUCH 00:00: diagnosis [place]rien as VERIO TEST 00 code E11.9 Med ical STRIPS) May Branch strip substitute brand preferred by insurance Lancing Yes [id number] Test bid Un alfonso Device with 7-19 daily. Use it y of Lancets 00:00: as [place] (ONE TOUCH 00 directed. [facility]) Kit May Branch substitute brand preferred by insurance metFORMIN 2022-0 Yes [id number] 1000mg Take 1 [facility] 1,000 mg 7-19 tablet by ity of tablet 00:00: mouth in [place] the Medical morning Branch and 1 tablet in the evening. Take with meals. MUST BE SEEN FOR FURTHER REFILLS pantoprazol 2022-0 Yes [id number] 40mg Take 1 [facility] e 40 mg EC 7-19 tablet by ity of tablet 00:00: mouth in [place] the Medical morning. Branch metoprolol 0 Yes [id number] 25mg Take 1 U nivers tartrate 25 7-19 tablet by ity of mg tablet 00:00: mouth in [place] [facility] the Medical morning Branch and 1 tablet in the evening. Blood-Gluco Yes [id number] Use as [facility] se Meter 7-19 directed. ity of (ONETOUCH 00:00: May [place] VERIO FLEX 00 substitute Med ical START) Kit brand Branch preferred by insurance blood sugar 0 Yes [id number] Test bid [facility] diagnostic 7-19 daily for ity of (ONETOUCH 00:00: diagnosis Adrien as VERIO TEST 00 code E11.9 Med ical STRIPS) May Branch strip substitute brand preferred by insurance Lancing 0 Yes [id number] Test bid Un al[place] Device with 7-19 daily. Use it y of Lancets 00:00: as [place] (ONE TOUCH 00 directed. [facility]) Kit May Branch substitute brand preferred by insurance metFORMIN 0 Yes [id number] 1000mg Take 1 [facility] 1,000 mg 7-19 tablet by ity of tablet 00:00: mouth in [place] the Medical morning Branch and 1 tablet in the evening. Take with meals. MUST BE SEEN FOR FURTHER REFILLS pantoprazol 2022-0 Yes [id number] 40mg Take 1 [facility] e 40 mg EC 7-19 tablet by ity of tablet 00:00: mouth in [place] the Medical morning. Branch metoprolol 2022-0 Yes [id number] 25mg Take 1 U nivers tartrate 25 7-19 tablet by ity of mg tablet 00:00: mouth in [facility] the Medical morning Branch and 1 tablet in the evening. Blood-Gluco 2022-0 Yes [id number] Use as [facility] se Meter 7-19 directed. ity of (ONETOUCH 00:00: May [place] VERIO FLEX 00 substitute Med ical START) Kit brand Branch preferred by insurance blood sugar 2022-0 Yes [id number] Test bid [facility] diagnostic 7-19 daily for ity of (ONETOUCH 00:00: diagnosis [place]rien as VERIO TEST 00 code E11.9 Med ical STRIPS) May Branch strip substitute brand preferred by insurance Lancing 0 Yes [id number] Test bid Un [place] Device with 7-19 daily. Use it y of Lancets 00:00: as [place] (ONE TOUCH 00 directed. Medi lula DELICA) Kit May Branch substitute brand preferred by insurance metFORMIN 2022-0 Yes [id number] 1000mg Take 1 [facility] 1,000 mg 7-19 tablet by ity of tablet 00:00: mouth in the Medical morning Branch and 1 tablet in the evening. Take with meals. MUST BE SEEN FOR FURTHER REFILLS pantoprazol 0 Yes [id number] 40mg Take 1 [facility] e 40 mg EC 7-19 tablet by ity of tablet 00:00: mouth in the Medical morning. Branch metoprolol 0 Yes [id number] 25mg Take 1 U nivers tartrate 25 7-19 tablet by ity of mg tablet 00:00: mouth in [facility] the Medical morning Branch and 1 tablet in the evening. Blood-Gluco 2022-0 Yes [id number] Use as [facility] se Meter 7-19 directed. ity of (ONETOUCH 00:00: September [place] VERIO FLEX 00 substitute Med ical START) Kit brand Branch preferred by insurance blood sugar 2022-0 Yes [id number] Test bid [facility] diagnostic 7-19 daily for ity of (ONETOUCH 00:00: diagnosis Adrien as VERIO TEST 00 code E11.9 Med ical STRIPS) May Branch strip substitute brand preferred by insurance Lancing 2022-0 Yes [id number] Test bid Un [place] Device with 7-19 daily. Use it y of Lancets 00:00: as [place] (ONE TOUCH 00 directed. Medi lula DELICA) Kit May Branch substitute brand preferred by insurance metFORMIN 0 Yes [id number] 1000mg Take 1 [facility] 1,000 mg 7-19 tablet by ity of tablet 00:00: mouth in [place] 00 the Medical morning Branch and 1 tablet in the evening. Take with meals. MUST BE SEEN FOR FURTHER REFILLS pantoprazol 2022-0 Yes [id number] 40mg Take 1 [facility] e 40 mg EC 7-19 tablet by ity of tablet 00:00: mouth in [place] 00 the morning. Branch metoprolol 2022-0 Yes [id number] 25mg Take 1 U nivers tartrate 25 7-19 tablet by ity of mg tablet 00:00: [place] 00 the Medical morning Branch and 1 tablet in the evening. Blood-Gluco 2022-0 Yes [id number] Use as [facility] se Meter 7-19 directed. ity of (ONETOUCH 00:00: September [place] VERIO FLEX 00 substitute Med ical START) Kit brand Branch preferred by insurance blood sugar 0 Yes [id number] Test bid [facility] diagnostic 7-19 daily for ity of (ONETOUCH 00:00: diagnosis Adrien as VERIO TEST 00 code E11.9 Med ical STRIPS) May Branch strip substitute brand preferred by insurance Lancing Yes [id number] Test bid Un alfon[place] Device with 7-19 daily. Use it y of Lancets 00:00: as [place] (ONE TOUCH 00 directed. Medi lula DELICA) Kit May Branch substitute brand preferred by insurance metFORMIN 0 Yes [id number] 1000mg Take 1 [facility] 1,000 mg 7-19 tablet by ity of tablet 00:00: mouth in [place] the morning Branch and 1 tablet in the evening. Take with meals. MUST BE SEEN FOR FURTHER REFILLS pantoprazol 2022-0 Yes [id number] 40mg Take 1 [facility] e 40 mg EC 7-19 tablet by ity of tablet 00:00: mouth in [place] 00 the morning. Branch metoprolol 2022-0 Yes [id number] 25mg Take 1 U nivers tartrate 25 7-19 tablet by ity of mg tablet 00:00: [place] the Medical morning Branch and 1 tablet in the evening. Blood-Gluco 2022-0 Yes [id number] Use as [facility] se Meter 7-19 directed. ity of (ONETOUCH 00:00: May [place] VERIO FLEX 00 substitute Med ical START) Kit brand Branch preferred by insurance blood sugar Yes [id number] Test bid [facility] diagnostic 7-19 daily for ity of (ONETOUCH 00:00: diagnosis [place]rien as VERIO TEST 00 code E11.9 Med ical STRIPS) May Branch strip substitute brand preferred by insurance Lancing Yes [id number] Test bid Un alfon[place] Device with 7-19 daily. Use it y of Lancets 00:00: as [place] (ONE TOUCH 00 directed. Medi lula DELICA) Kit May Branch substitute brand preferred by insurance omeprazole 0 Yes 20mg QD [facility]Pri[facility]SEC[facility] 20 MG 11:27: (20 mg Medical capsule 02 total) by Center mouth daily. montelukast 0 Yes 10mg QD Take [address] [facility] (SINGULAIR) 7-17 tablet (10 [facility]ela [facility]es 10 mg 11:27: mg total) Medical tablet 02 by mouth Center daily. losartan 0 Yes 50mg QD Take [address] [facility] (COZAAR) 50 7-17 tablet (50 Carmela kes MG tablet 11:27: mg total) Med ical 02 by mouth Center daily. metoprolol 0 Yes 25mg Q.5D Take 1 [facility] tartrate 7-17 tablet (25 [facility] (LOPRESSOR) 11:27: mg total) M edical 25 MG 02 by mouth 2 Center tablet (two) times daily. budesonide- Yes maintenance 2{puff} Q.5D Inhale [address] [facility] formoteroL 7-17 therapy for puffs by [facility] (SYMBICORT) 11:27: asthma mouth via Medical 160-4.5 02 inhaler 2 Center mcg/actuati (two) on inhaler times daily. pregabalin 0 Yes 200mg Take [address] [facility] (LYRICA) 7-17 capsule [facility] 200 MG 11:27: (200 mg Medical capsule 02 total) by Center mouth 2 (two) times daily as needed As needed for back pain. Max Daily Amount: 400 mg metFORMIN 2022-0 2023- No 1000mg Take [address] [facility] (GLUCOPHAGE 7-17 07-14 tablet [facility] ) 1000 MG 11:27: 00:00 (1,000 mg Me dical tablet 02 :00 total) by Center mouth 2 (two) times daily with breakfast and dinner. clopidogreL 2023-0 2024- Yes 75mg QD Take [address] [facility] (PLAVIX) 75 7-17 07-16 tablet (75 [facility] mg tablet 00:00: 23:59 mg total) Me dical 00 :00 by mouth Center daily . clopidogreL 2023-0 Yes 75mg Take 1 Univ ers 75 mg 7-16 tablet by ity of tablet 00:00: mouth in [place] the Medical morning. Branch clopidogreL 2023-0 Yes 75mg Take 1 Univ ers 75 mg 7-16 tablet by ity of tablet 00:00: mouth in [place] the Medical morning. Branch clopidogreL 2023-0 Yes 75mg Take 1 Univ ers 75 mg 7-16 tablet by ity of tablet 00:00: mouth in [place] the Medical morning. Branch clopidogreL 2023-0 Yes 75mg Take 1 Univ ers 75 mg 7-16 tablet by ity of tablet 00:00: mouth in [place] the Medical morning. Branch clopidogreL 2023-0 Yes 75mg Take 1 Univ ers 75 mg 7-16 tablet by ity of tablet 00:00: mouth in [place] the Medical morning. Branch clopidogreL 2023-0 Yes 75mg Take 1 Univ ers 75 mg 7-16 tablet by ity of tablet 00:00: mouth in [place] the Medical morning. Branch clopidogreL 2023-0 Yes 75mg Take 1 Univ ers 75 mg 7-16 tablet by ity of tablet 00:00: mouth in [place] the Medical morning. Branch clopidogreL 2023-0 Yes 75mg Take 1 Univ ers 75 mg 7-16 tablet by ity of tablet 00:00: mouth in [place] the Medical morning. Branch clopidogreL 2023-0 Yes 75mg Take 1 Univ ers 75 mg 7-16 tablet by ity of tablet 00:00: mouth in [place] the Medical morning. Branch clopidogreL 2023-0 Yes 75mg Take 1 Univ ers 75 mg 7-16 tablet by ity of tablet 00:00: mouth in [place] the Medical morning. Branch clopidogreL 2023-0 Yes 75mg Take 1 Univ ers 75 mg 7-16 tablet by ity of tablet 00:00: mouth in [place] the Medical morning. Branch clopidogreL 2023-0 Yes 75mg Take 1 Univ ers 75 mg 7-16 tablet by ity of tablet 00:00: mouth in [place] 00 the Medical morning. Branch clopidogreL 2023-0 Yes 75mg Take 1 Univ ers 75 mg 7-16 tablet by ity of tablet 00:00: mouth in [place] the Medical morning. Branch clopidogreL 2023-0 Yes 75mg Take 1 Univ ers 75 mg 7-16 tablet by ity of tablet 00:00: mouth in [place] the Medical morning. Branch clopidogreL 2023-0 Yes 75mg Take 1 Univ ers 75 mg 7-16 tablet by ity of tablet 00:00: mouth in [place] the Medical morning. Branch rosuvastati 2023-0 2024- Yes 20mg QD Take [address] [facility] (CRESTOR) 7-15 07-14 tablet (20 [facility] 20 MG 00:00: 23:59 mg total) Medica l tablet 00 :00 by mouth Center daily. rosuvastati 2023-0 Yes 20mg Take 1 Univ ers n 20 mg 7-14 tablet by ity of tablet 00:00: mouth at [place] [address] bedtime. Medical Branch rosuvastati 2023-0 Yes 20mg Take 1 Univ ers n 20 mg 7-14 tablet by ity of tablet 00:00: mouth at [place] [address] bedtime. Medical Branch rosuvastati 2023-0 Yes 20mg Take 1 Univ ers n 20 mg 7-14 tablet by ity of tablet 00:00: mouth at [place] [address] bedtime. Medical Branch rosuvastati 2023-0 Yes 20mg Take 1 Univ ers n 20 mg 7-14 tablet by ity of tablet 00:00: mouth at [place] [address] bedtime. Medical Branch rosuvastati 2023-0 Yes 20mg Take 1 Univ ers n 20 mg 7-14 tablet by ity of tablet 00:00: mouth at [place] [address] bedtime. Medical Branch rosuvastati 2023-0 Yes 20mg Take 1 Univ ers n 20 mg 7-14 tablet by ity of tablet 00:00: mouth at [place] [address] bedtime. Medical Branch rosuvastati 2023-0 Yes 20mg Take 1 Univ ers n 20 mg 7-14 tablet by ity of tablet 00:00: mouth at [place] [address] bedtime. Medical Branch rosuvastati 2023-0 Yes 20mg Take 1 Univ ers n 20 mg 7-14 tablet by ity of tablet 00:00: mouth at [place] [address] bedtime. Medical Branch rosuvastati 2023-0 Yes 20mg Take 1 Univ ers n 20 mg 7-14 tablet by ity of tablet 00:00: mouth at [place] [address] bedtime. Medical Branch rosuvastati 3-0 Yes 20mg Take 1 Univ ers n 20 mg 7-14 tablet by ity of tablet 00:00: mouth at [place] [address] bedtime. Medical Branch rosuvastati 3-0 Yes 20mg Take 1 Univ ers n 20 mg 7-14 tablet by ity of tablet 00:00: mouth at [place] [address] bedtime. Medical Branch rosuvastati 2022-0 Yes 20mg Take 1 Univ ers n 20 mg 7-14 tablet by ity of tablet 00:00: mouth at [place] [address] bedtime. Medical Branch rosuvastati 2022-0 Yes 20mg Take 1 Univ ers n 20 mg 7-14 tablet by ity of tablet 00:00: mouth at [place] [address] bedtime. Medical Branch rosuvastati 2022-0 Yes 20mg Take 1 Univ ers n 20 mg 7-14 tablet by ity of tablet 00:00: mouth at [place] [address] bedtime. Medical Branch rosuvastati 2022-0 Yes 20mg Take 1 Univ ers n 20 mg 7-14 tablet by ity of tablet 00:00: mouth at [place] [address] bedtime. Medical Branch HYDROcodone 2022-0 Yes TAKE 1 Univ ers -acetaminop 7-07 TABLET BY ity of hen 10-325 00:00: MOUTH [place] mg tablet 00 TWICE A Medical DAY Branch NEEDED FOR PAIN MAX 2/DAY HYDROcodone 2022-0 Yes TAKE 1 Univ ers -acetaminop 7-07 TABLET BY ity of hen 10-325 00:00: MOUTH [place] mg tablet 00 TWICE A Medical DAY Branch NEEDED FOR PAIN MAX 2/DAY HYDROcodone 2022-0 Yes TAKE 1 Univ ers -acetaminop 7-07 TABLET BY ity of hen 10-325 00:00: MOUTH [place] mg tablet 00 TWICE A Medical DAY Branch NEEDED FOR PAIN MAX 2/DAY HYDROcodone 2022-0 Yes TAKE 1 Univ ers -acetaminop 7-07 TABLET BY ity of hen 10-325 00:00: MOUTH [place] mg tablet 00 TWICE A Medical DAY Branch NEEDED FOR PAIN MAX 2/DAY HYDROcodone 2022-0 Yes TAKE 1 Univ ers -acetaminop 7-07 TABLET BY ity of hen 10-325 00:00: MOUTH [place] mg tablet 00 TWICE A Medical DAY Branch NEEDED FOR PAIN MAX 2/DAY HYDROcodone 2022-0 Yes TAKE 1 Univ ers -acetaminop 7-07 TABLET BY ity of hen 10-325 00:00: MOUTH [place] mg tablet 00 TWICE A Medical DAY Branch NEEDED FOR PAIN MAX 2/DAY HYDROcodone 2022-0 Yes TAKE 1 Univ ers -acetaminop 7-07 TABLET BY ity of hen 10-325 00:00: MOUTH [place] mg tablet 00 TWICE A Medical DAY Branch NEEDED FOR PAIN MAX 2/DAY HYDROcodone 2022-0 Yes TAKE 1 Univ ers -acetaminop 7-07 TABLET BY ity of hen 10-325 00:00: MOUTH [place] mg tablet 00 TWICE A Medical DAY Branch NEEDED FOR PAIN MAX 2/DAY HYDROcodone 2022-0 Yes TAKE 1 Univ ers -acetaminop 7-07 TABLET BY ity of hen 10-325 00:00: MOUTH [place] mg tablet 00 TWICE A Medical DAY Branch NEEDED FOR PAIN MAX 2/DAY HYDROcodone 2022-0 Yes TAKE 1 Univ ers -acetaminop 7-07 TABLET BY ity of hen 10-325 00:00: MOUTH [place] mg tablet 00 TWICE A Medical DAY Branch NEEDED FOR PAIN MAX 2/DAY HYDROcodone 2022-0 Yes TAKE 1 Univ ers -acetaminop 7-07 TABLET BY ity of hen 10-325 00:00: MOUTH [place] mg tablet 00 TWICE A Medical DAY Branch NEEDED FOR PAIN MAX 2/DAY HYDROcodone 2022-0 Yes TAKE 1 Univ ers -acetaminop 7-07 TABLET BY ity of hen 10-325 00:00: MOUTH [place] mg tablet 00 TWICE A Medical DAY Branch NEEDED FOR PAIN MAX 2/DAY HYDROcodone 2022-0 Yes TAKE 1 Univ ers -acetaminop 7-07 TABLET BY ity of hen 10-325 00:00: MOUTH [place] mg tablet 00 TWICE A Medical DAY Branch NEEDED FOR PAIN MAX 2/DAY HYDROcodone 2022-0 Yes TAKE 1 Univ ers -acetaminop 7-07 TABLET BY ity of hen 10-325 00:00: MOUTH [place] mg tablet 00 TWICE A Medical DAY Branch NEEDED FOR PAIN MAX 2/DAY HYDROcodone 3-0 Yes TAKE 1 Univ ers -acetaminop 7-07 TABLET BY ity of hen 10-325 00:00: MOUTH [place] mg tablet 00 TWICE A Medical DAY Branch NEEDED FOR PAIN MAX 2/DAY losartan 50 2022-0 Yes [id number] 50mg Take 1 [facility] mg tablet 7-03 tablet by ity o f 00:00: mouth in [place] 00 the Medical morning. Branch losartan 50 2022-0 Yes [id number] 50mg Take 1 [facility] mg tablet 7-03 tablet by ity o f 00:00: mouth in [place] 00 the Medical morning. Branch MONTELUKAST 2022-0 Yes [id number] TAKE 1 [facility] 10 mg 7-03 TABLET BY ity of tablet 00:00: MOUTH IN [place] 00 THE Medical MORNING Branch losartan 50 2022-0 Yes [id number] 50mg Take 1 [facility] mg tablet 7-03 tablet by ity o f 00:00: mouth in [place] 00 the Medical morning. Branch MONTELUKAST 2022-0 Yes [id number] TAKE 1 [facility] 10 mg 7-03 TABLET BY ity of tablet 00:00: MOUTH IN [place] THE Medical MORNING Branch losartan 50 2022-0 Yes [id number] 50mg Take 1 [facility] mg tablet 7-03 tablet by ity o f 00:00: mouth in [place] 00 the Medical morning. Branch MONTELUKAST 2022-0 Yes [id number] TAKE 1 [facility] 10 mg 7-03 TABLET BY ity of tablet 00:00: MOUTH IN [place] 00 THE Medical MORNING Branch losartan 50 2022-0 Yes [id number] 50mg Take 1 [facility] mg tablet 7-03 tablet by ity o f 00:00: mouth in [place] the Medical morning. Branch MONTELUKAST 2022-0 Yes [id number] TAKE 1 [facility] 10 mg 7-03 TABLET BY ity of tablet 00:00: MOUTH IN [place] 00 THE Medical MORNING Branch losartan 50 2022-0 Yes [id number] 50mg Take 1 [facility] mg tablet 7-03 tablet by ity o f 00:00: mouth in [place] 00 the Medical morning. Branch MONTELUKAST 2022-0 Yes [id number] TAKE 1 [facility] 10 mg 7-03 TABLET BY ity of tablet 00:00: MOUTH IN [place] 00 THE Medical MORNING Branch losartan 50 2022-0 Yes [id number] 50mg Take 1 [facility] mg tablet 7-03 tablet by ity o f 00:00: mouth in [place] 00 the Medical morning. Branch MONTELUKAST 2022-0 Yes [id number] TAKE 1 [facility] 10 mg 7-03 TABLET BY ity of tablet 00:00: MOUTH IN [place] 00 THE Medical MORNING Branch losartan 50 2022-0 Yes [id number] 50mg Take 1 [facility] mg tablet 7-03 tablet by ity o f 00:00: mouth in [place] 00 the Medical morning. Branch MONTELUKAST 2022-0 Yes [id number] TAKE 1 [facility] 10 mg 7-03 TABLET BY ity of tablet 00:00: MOUTH IN [place] 00 THE Medical MORNING Branch losartan 50 2022-0 Yes [id number] 50mg Take 1 [facility] mg tablet 7-03 tablet by ity o f 00:00: mouth in [place] 00 the Medical morning. Branch MONTELUKAST 2022-0 Yes [id number] TAKE 1 [facility] 10 mg 7-03 TABLET BY ity of tablet 00:00: MOUTH IN [place] 00 THE Medical MORNING Branch losartan 50 2022-0 Yes [id number] 50mg Take 1 [facility] mg tablet 7-03 tablet by ity o f 00:00: mouth in [place] 00 the Medical morning. Branch MONTELUKAST 2022-0 Yes [id number] TAKE 1 [facility] 10 mg 7-03 TABLET BY ity of tablet 00:00: MOUTH IN [place] 00 THE Medical MORNING Branch losartan 50 2022-0 Yes [id number] 50mg Take 1 [facility] mg tablet 7-03 tablet by ity o f 00:00: mouth in [place] 00 the Medical morning. Branch MONTELUKAST 2022-0 Yes [id number] TAKE 1 [facility] 10 mg 7-03 TABLET BY ity of tablet 00:00: MOUTH IN [place] 00 THE Medical MORNING Branch losartan 50 2022-0 Yes [id number] 50mg Take 1 [facility] mg tablet 7-03 tablet by ity o f 00:00: mouth in [place] 00 the Medical morning. Branch MONTELUKAST 2022-0 Yes [id number] TAKE 1 [facility] 10 mg 7-03 TABLET BY ity of tablet 00:00: MOUTH IN [place] 00 THE Medical MORNING Branch losartan 50 2022-0 Yes [id number] 50mg Take 1 [facility] mg tablet 7-03 tablet by ity o f 00:00: mouth in [place] 00 the Medical morning. Branch MONTELUKAST 2022-0 Yes [id number] TAKE 1 [facility] 10 mg 7-03 TABLET BY ity of tablet 00:00: MOUTH IN [place] 00 THE Medical MORNING Branch losartan 50 2022-0 Yes [id number] 50mg Take 1 [facility] mg tablet 7-03 tablet by ity o f 00:00: mouth in [place] 00 the Medical morning. Branch MONTELUKAST 2022-0 Yes [id number] TAKE 1 [facility] 10 mg 7-03 TABLET BY ity of tablet 00:00: MOUTH IN [place] 00 THE Medical MORNING Branch losartan 50 2022-0 Yes [id number] 50mg Take 1 [facility] mg tablet 7-03 tablet by ity o f 00:00: mouth in [place] 00 the Medical morning. Branch MONTELUKAST 2022-0 Yes [id number] TAKE 1 [facility] 10 mg 7-03 TABLET BY ity of tablet 00:00: MOUTH IN [place] 00 THE Medical MORNING Branch losartan 50 2022-0 Yes [id number] 50mg Take 1 [facility] mg tablet 7-03 tablet by ity o f 00:00: mouth in [place] 00 the Medical morning. Branch MONTELUKAST 2022-0 Yes [id number] TAKE 1 [facility] 10 mg 7-03 TABLET BY ity of tablet 00:00: MOUTH IN [place] 00 THE Medical MORNING Branch losartan 50 2022-0 Yes [id number] 50mg Take 1 [facility] mg tablet 7-03 tablet by ity o f 00:00: mouth in [place] 00 the Medical morning. Branch MONTELUKAST 2022-0 Yes [id number] TAKE 1 [facility] 10 mg 7-03 TABLET BY ity of tablet 00:00: MOUTH IN [place] 00 THE Medical MORNING Branch losartan 50 2022-0 Yes [id number] 50mg Take 1 [facility] mg tablet 7-03 tablet by ity o f 00:00: mouth in [place] 00 the Medical morning. Branch MONTELUKAST 2022-0 Yes [id number] TAKE 1 [facility] 10 mg 7-03 TABLET BY ity of tablet 00:00: MOUTH IN [place] 00 THE Medical MORNING Branch losartan 50 2022-0 Yes [id number] 50mg Take 1 [facility] mg tablet 7-03 tablet by ity o f 00:00: mouth in [place] 00 the Medical morning. Branch MONTELUKAST 2022-0 Yes [id number] TAKE 1 [facility] 10 mg 7-03 TABLET BY ity of tablet 00:00: MOUTH IN [place] 00 THE Medical MORNING Branch losartan 50 2022-0 Yes [id number] 50mg Take 1 [facility] mg tablet 7-03 tablet by ity o f 00:00: mouth in [place] 00 the Medical morning. Branch MONTELUKAST 2023-0 Yes [id number] TAKE 1 [facility] 10 mg 7-03 TABLET BY ity of tablet 00:00: MOUTH IN [place] 00 THE Medical MORNING Branch losartan 50 2022-0 Yes [id number] 50mg Take 1 [facility] mg tablet 7-03 tablet by ity o f 00:00: mouth in [place] 00 the Medical morning. Branch MONTELUKAST Yes [id number] TAKE 1 [facility] 10 mg 7-03 TABLET BY ity of tablet 00:00: MOUTH IN [place] 00 THE Medical MORNING Branch losartan 50 0 Yes [id number] 50mg Take 1 [facility] mg tablet 7-03 tablet by ity o f 00:00: mouth in [place] 00 the Medical morning. Branch MONTELUKAST Yes [id number] TAKE 1 [facility] 10 mg 7-03 TABLET BY ity of tablet 00:00: MOUTH IN [place] THE Medical MORNING Branch ketorolac 2022- No 30mg 30 mg, Unive rs (TORADOL) 10-28 Slow IV ity of injection 23:30: 22:27 Push, [place] 30 mg 00 :00 ONCE, 1 Medical dose, On Branch 10/28/22 at 1830, GARY sulfamethox 2022- No 1{tbl} 1 tablet, Univers azole-trime 10-28 Oral, ity of thoprim 22:30: 22:26 ONCE, 1 [place] (BACTRIM 00 :00 dose, On Medical DS) 800-160 [place] mg per 10/28/22 at tablet 1 1730, tablet GARY
Re ason for Anti-Infec tive: Documented Infection< br>Documen carey Infection Site: Urine
D uration of Therapy: 10 days vancomycin 2022- No 1000mg 1,000 mg, Univers (VANCOCIN) 10-28 IV ity of 1,000 mg in 21:30: 22:21 [place], [place] NaCl 0.9% 00 :00 ONCE, 1 Medical (NS) 250 mL dose, On [facility] VIAL-MATE [place] IV 10/28/22 at piggyback 1630, Administer over 60 Minutes, 250 mL
Reas on for Anti-Infec tive: Documented Infection< br>Documen carey Infection Site: Urine<br&g t;Duration of Therapy: Other (see Comments) morpHINE (4 2022- No 4mg 4 mg, Slow Univers mg/mL) 10-28 IV Push, ity of injection 4 19:00: 18:56 ONCE, 1 [place] mg 00 :00 dose, On Medical [facility] 10/28/22 at 1400, STAT ondansetron 2022- No 4mg 4 mg, Slow Univers (ZOFRAN 10-28 IV Push, ity of (PF)) 16:00: 15:57 ONCE, 1 [place] injection 4 00 :00 dose, On Medi lula mg [place] Branch 10/28/22 at 1100, GARY morpHINE (4 2022- No 4mg 4 mg, Slow [facility] mg/mL) 10-28 IV [place], ity of injection 4 16:00: 15:57 ONCE, 1 [place] mg 00 :[place] dose, On [facility] 10/28/22 at 1100, STAT sulfamethox 2022-0 Yes 1{tbl} Take 1 [facility] azole-trime 6-18 tablet by ity of thoprim 00:00: mouth [place] 800-160 mg 00 every 12 Medic al per tablet (twelve) Branc h hours. gabapentin 2022-0 Yes [id number] 100mg Take 1 [facility] 100 mg 6-18 capsule by ity of capsule 00:00: mouth in [place] 00 the Medical morning Branch and 1 capsule at noon and 1 capsule in the evening. ketorolac 2022-0 Yes 10mg Take 1 U nivers 10 mg 6-18 tablet by ity of tablet 00:00: mouth [place] 00 every 6 Medical (six) Branch hours as needed for Pain (scale 4-6). sulfamethox 2022-0 Yes 1{tbl} Take 1 [facility] azole-trime 6-18 tablet by ity of thoprim 00:00: mouth [place] 800-160 mg 00 every 12 Medic al per tablet (twelve) Branc h hours. gabapentin 2022-0 Yes [id number] 100mg Take 1 [facility] 100 mg 6-18 capsule by ity of capsule 00:00: mouth in [place] 00 the Medical morning Branch and 1 capsule at noon and 1 capsule in the evening. ketorolac 3-0 Yes [id number] 10mg Take 1 U nivers 10 mg 6-18 tablet by ity of tablet 00:00: mouth [place] 00 every 6 Medical (six) Branch hours as needed for Pain (scale 4-6). sulfamethox 2023-0 Yes [id number] 1{tbl} Take 1 [facility] azole-trime 6-18 tablet by ity of thoprim 00:00: mouth [place] 800-160 mg 00 every 12 Medic al per tablet (twelve) Branc h hours. gabapentin 2023-0 Yes [id number] 100mg Take 1 [facility] 100 mg 6-18 capsule by ity of capsule 00:00: mouth in [place] 00 the Medical morning Branch and 1 capsule at noon and 1 capsule in the evening. ketorolac 2023-0 Yes [id number] 10mg Take 1 [facility] 10 mg 6-18 tablet by ity of tablet 00:00: mouth [place] 00 every 6 Medical (six) Branch hours as needed for Pain (scale 4-6). sulfamethox 2023-0 Yes [id number] 1{tbl} Take 1 [facility] azole-trime 6-18 tablet by ity of thoprim 00:00: mouth [place] 800-160 mg 00 every 12 Medic al per tablet (twelve) Branc h hours. gabapentin 2023-0 Yes [id number] 100mg Take 1 [facility] 100 mg 6-18 capsule by ity of capsule 00:00: mouth in [place] 00 the Medical morning Branch and 1 capsule at noon and 1 capsule in the evening. ketorolac 2023-0 Yes [id number] 10mg Take 1 [facility] 10 mg 6-18 tablet by ity of tablet 00:00: mouth [place] 00 every 6 Medical (six) Branch hours as needed for Pain (scale 4-6). sulfamethox 2023-0 Yes [id number] 1{tbl} Take 1 [facility] azole-trime 6-18 tablet by ity of thoprim 00:00: mouth [place] 800-160 mg 00 every 12 Medic al per tablet (twelve) Branc h hours. gabapentin 2023-0 Yes [id number] 100mg Take 1 [facility] 100 mg 6-18 capsule by ity of capsule 00:00: mouth in [place] 00 the Medical morning Branch and 1 capsule at noon and 1 capsule in the evening. ketorolac 2023-0 Yes [id number] 10mg Take 1 [facility] 10 mg 6-18 tablet by ity of tablet 00:00: mouth [place] 00 every 6 Medical (six) Branch hours as needed for Pain (scale 4-6). sulfamethox 2023-0 Yes [id number] 1{tbl} Take 1 [facility] azole-trime 6-18 tablet by ity of thoprim 00:00: mouth [place] 800-160 mg 00 every 12 Medic al per tablet (twelve) Branc h hours. gabapentin 2023-0 Yes [id number] 100mg Take 1 [facility] 100 mg 6-18 capsule by ity of capsule 00:00: mouth in [place] 00 the Medical morning Branch and 1 capsule at noon and 1 capsule in the evening. ketorolac 2023-0 Yes [id number] 10mg Take 1 [facility] n[facility] 10 mg 6-18 tablet by ity of tablet 00:00: mouth [place] 00 every 6 Medical (six) Branch hours as needed for Pain (scale 4-6). sulfamethox 2022-0 Yes 1{tbl} Take 1 [facility] azole-trime 6-18 tablet by ity of thoprim 00:00: mouth [place] 800-160 mg 00 every 12 Medic al per tablet (twelve) Branc h hours. gabapentin 2022-0 Yes [id number] 100mg Take 1 [facility] 100 mg 6-18 capsule by ity of capsule 00:00: mouth in [place] 00 the Medical morning Branch and 1 capsule at noon and 1 capsule in the evening. ketorolac 3-0 Yes [id number] 10mg Take 1 [facility] 10 mg 6-18 tablet by ity of tablet 00:00: mouth [place] 00 every 6 Medical (six) Branch hours as needed for Pain (scale 4-6). gabapentin 202-0 2022- No [id number] 100mg Take 1 [facility] 100 mg 6-18 07-19 capsule by ity of capsule 00:00: 00:00 mouth in [place] 00 :00 the Medical morning Branch and 1 capsule at noon and 1 capsule in the evening. gabapentin 2023-0 2022- No [id number] 100mg Take 1 [facility] 100 mg 6-18 07-19 capsule by ity of capsule 00:00: 00:00 mouth in [place] 00 :00 the Medical morning Branch and 1 capsule at noon and 1 capsule in the evening. gabapentin 2023-0 202- No [id number] 100mg Take 1 [facility] 100 mg 6-18 07-19 capsule by ity of capsule 00:00: 00:00 mouth in [place] 00 :00 the [facility] Branch and 1 capsule at noon and 1 capsule in the evening. gabapentin 3-0 2022- No [id number] 100mg Take 1 [facility] 100 mg 6-18 07-19 capsule by ity of capsule 00:00: 00:00 mouth in [place] 00 :00 the [facility] and 1 capsule at noon and 1 capsule in the evening. ketorolac 3-0 2022- No [id number] 10mg Take 1 [facility] 10 mg 6-18 06-18 tablet by ity of tablet 00:00: 00:00 mouth [place] 00 :00 every 6 Medical (six) Branch hours as needed for Pain (scale 4-6). pregabalin 2023-0 Yes 75mg Take 1 [facility] rs 75 mg 6-06 capsule by ity of capsule 00:00: mouth in [address] and 1 capsule at noon and 1 capsule in the evening. pregabalin 2023-0 Yes 75mg Take 1 [facility] rs 75 mg 6-06 capsule by ity of capsule 00:00: mouth in [address] and 1 capsule at noon and 1 capsule in the evening. pregabalin 2023-0 Yes 75mg Take 1 [facility] rs 75 mg 6-06 capsule by ity of capsule 00:00: mouth in [address] and 1 capsule at noon and 1 capsule in the evening. pregabalin 2023-0 Yes 75mg Take 1 [facility] rs 75 mg 6-06 capsule by ity of capsule 00:00: mouth in [address] and 1 capsule at noon and 1 capsule in the evening. pregabalin 2023-0 Yes 75mg Take 1 [facility] rs 75 mg 6-06 capsule by ity of capsule 00:00: mouth in [address] and 1 capsule at noon and 1 capsule in the evening. pregabalin 2023-0 Yes 75mg Take 1 [facility] rs 75 mg 6-06 capsule by ity of capsule 00:00: mouth in [address] and 1 capsule at noon and 1 capsule in the evening. pregabalin 2023-0 Yes 75mg Take 1 [facility] rs 75 mg 6-06 capsule by ity of capsule 00:00: mouth in [address] and 1 capsule at noon and 1 capsule in the evening. pregabalin 2023-0 Yes 75mg Take 1 [facility] rs 75 mg 6-06 capsule by ity of capsule 00:00: mouth in [address] and 1 capsule at noon and 1 capsule in the evening. pregabalin 2023-0 Yes 75mg Take 1 [facility] rs 75 mg 6-06 capsule by ity of capsule 00:00: mouth in [address] and 1 capsule at noon and 1 capsule in the evening. pregabalin 2023-0 Yes 75mg Take 1 [facility] rs 75 mg 6-06 capsule by ity of capsule 00:00: mouth in [address] and 1 capsule at noon and 1 capsule in the evening. pregabalin 2023-0 Yes 75mg Take 1 [facility] rs 75 mg 6-06 capsule by ity of capsule 00:00: mouth in [address] and 1 capsule at noon and 1 capsule in the evening. pregabalin 2023-0 Yes 75mg Take 1 [facility] rs 75 mg 6-06 capsule by ity of capsule 00:00: mouth in [address] and 1 capsule at noon and 1 capsule in the evening. pregabalin 2023-0 Yes 75mg Take 1 [facility] rs 75 mg 6-06 capsule by ity of capsule 00:00: mouth in [address] and 1 capsule at noon and 1 capsule in the evening. pregabalin 2023-0 Yes 75mg Take 1 [facility] rs 75 mg 6-06 capsule by ity of capsule 00:00: mouth in [address] and 1 capsule at noon and 1 capsule in the evening. pregabalin 2023-0 Yes 75mg Take 1 [facility] rs 75 mg 6-06 capsule by ity of capsule 00:00: mouth in [address] and 1 capsule at noon and 1 capsule in the evening. omeprazole 2023-0 Yes [id number] 20mg Take 1 [facility] 20 mg 6-02 capsule by ity of capsule 00:00: mouth in [address] Branch MUST BE SEEN FOR FURTHER REFILLS omeprazole 2023-0 Yes [id number] 20mg Take 1 [facility] 20 mg 6-02 capsule by ity of capsule 00:00: mouth in [place] the Medical morning. Branch MUST BE SEEN FOR FURTHER REFILLS montelukast 2022-0 Yes [id number] 10mg Take 1 [facility] 10 mg 6-02 tablet by ity of tablet 00:00: mouth in [place] the Medical morning. Branch MUST BE SEEN FOR FURTHER REFILLS omeprazole 2022-0 Yes [id number] 20mg Take 1 [facility] 20 mg 6-02 capsule by ity of capsule 00:00: mouth in [place] the Medical morning. Branch MUST BE SEEN FOR FURTHER REFILLS montelukast 2022-0 Yes [id number] 10mg Take 1 [facility] 10 mg 6-02 tablet by ity of tablet 00:00: mouth in [place] the Medical morning. Branch MUST BE SEEN FOR FURTHER REFILLS omeprazole 2022-0 Yes [id number] 20mg Take 1 [facility] 20 mg 6-02 capsule by ity of capsule 00:00: mouth in [place] the Medical morning. Branch MUST BE SEEN FOR FURTHER REFILLS montelukast 2022-0 Yes [id number] 10mg Take 1 [facility] 10 mg 6-02 tablet by ity of tablet 00:00: mouth in [place] the Medical morning. Branch MUST BE SEEN FOR FURTHER REFILLS omeprazole 2022-0 Yes [id number] 20mg Take 1 [facility] 20 mg 6-02 capsule by ity of capsule 00:00: mouth in [place] the Medical morning. Branch MUST BE SEEN FOR FURTHER REFILLS montelukast 2022-0 Yes [id number] 10mg Take 1 [facility] 10 mg 6-02 tablet by ity of tablet 00:00: mouth in [place] the Medical morning. Branch MUST BE SEEN FOR FURTHER REFILLS omeprazole 2022-0 Yes [id number] 20mg Take 1 [facility] 20 mg 6-02 capsule by ity of capsule 00:00: mouth in [place] the Medical morning. Branch MUST BE SEEN FOR FURTHER REFILLS montelukast 2022-0 Yes [id number] 10mg Take 1 [facility] 10 mg 6-02 tablet by ity of tablet 00:00: mouth in [place] 00 the Medical morning. Branch MUST BE SEEN FOR FURTHER REFILLS omeprazole 2022-0 Yes [id number] 20mg Take 1 [facility] 20 mg 6-02 capsule by ity of capsule 00:00: mouth in [place] 00 the Medical morning. Branch MUST BE SEEN FOR FURTHER REFILLS omeprazole 2022-0 Yes [id number] 20mg Take 1 [facility] 20 mg 6-02 capsule by ity of capsule 00:00: mouth in [place] 00 the Medical morning. Branch MUST BE SEEN FOR FURTHER REFILLS omeprazole 2022-0 Yes [id number] 20mg Take 1 [facility] 20 mg 6-02 capsule by ity of capsule 00:00: mouth in [place] 00 the Medical morning. Branch MUST BE SEEN FOR FURTHER REFILLS omeprazole 2022-0 Yes [id number] 20mg Take 1 [facility] 20 mg 6-02 capsule by ity of capsule 00:00: mouth in [place] 00 the Medical morning. Branch MUST BE SEEN FOR FURTHER REFILLS omeprazole 2022-0 Yes [id number] 20mg Take 1 [facility] 20 mg 6-02 capsule by ity of capsule 00:00: mouth in [place] 00 the Medical morning. Branch MUST BE SEEN FOR FURTHER REFILLS omeprazole 2022-0 3- No [id number] 20mg Take 1 [facility] 20 mg 6-02 07-19 capsule by ity of capsule 00:00: 00:00 mouth in [place] 00 :00 the Medical morning. Branch MUST BE SEEN FOR FURTHER REFILLS omeprazole 2022-0 2022- No [id number] 20mg Take 1 [facility] 20 mg 6-02 -19 capsule by ity of capsule 00:00: 00:00 mouth in [place] 00 :00 the Medical morning. Branch MUST BE SEEN FOR FURTHER REFILLS omeprazole 2022-0 3- No [id number] 20mg Take 1 [facility] 20 mg 6-02 07-19 capsule by ity of capsule 00:00: 00:00 mouth in [place] 00 :00 the Medical morning. Branch MUST BE SEEN FOR FURTHER REFILLS omeprazole 2022-0 2022- No [id number] 20mg Take 1 [facility] 20 mg 6-02 07-19 capsule by ity of capsule 00:00: 00:00 mouth in [place] 00 :00 the Medical morning. Branch MUST BE SEEN FOR FURTHER REFILLS montelukast 2022-0 3- No [id number] 10mg Take 1 [facility] 10 mg 6-02 07-03 tablet by ity of tablet 00:00: 00:00 mouth in [place] 00 :00 the Medical morning. Branch MUST BE SEEN FOR FURTHER REFILLS metFORMIN 2023-0 Yes [id number] 1000mg Take 1 [facility] 1,000 mg 4-26 tablet by ity of tablet 00:00: mouth in [address] and 1 tablet in the evening. Take with meals. MUST BE SEEN FOR FURTHER REFILLS metFORMIN 2023-0 Yes [id number] 1000mg Take 1 [facility] 1,000 mg 4-26 tablet by ity of tablet 00:00: mouth in [address] and 1 tablet in the evening. Take with meals. MUST BE SEEN FOR FURTHER REFILLS metFORMIN 2023-0 Yes [id number] 1000mg Take 1 [facility] 1,000 mg 4-26 tablet by ity of tablet 00:00: mouth in [address] and 1 tablet in the evening. Take with meals. MUST BE SEEN FOR FURTHER REFILLS metFORMIN 2023-0 Yes [id number] 1000mg Take 1 [facility] 1,000 mg 4-26 tablet by ity of tablet 00:00: mouth in [address] and 1 tablet in the evening. Take with meals. MUST BE SEEN FOR FURTHER REFILLS metFORMIN 2023-0 Yes [id number] 1000mg Take 1 [facility] 1,000 mg 4-26 tablet by ity of tablet 00:00: mouth in [address] and 1 tablet in the evening. Take with meals. MUST BE SEEN FOR FURTHER REFILLS metFORMIN 2023-0 Yes [id number] 1000mg Take 1 [facility] 1,000 mg 4-26 tablet by ity of tablet 00:00: mouth in [address] and 1 tablet in the evening. Take with meals. MUST BE SEEN FOR FURTHER REFILLS metFORMIN 2023-0 Yes [id number] 1000mg Take 1 [facility] 1,000 mg 4-26 tablet by ity of tablet 00:00: mouth in [address] and 1 tablet in the evening. Take with meals. MUST BE SEEN FOR FURTHER REFILLS metFORMIN 2023-0 Yes [id number] 1000mg Take 1 [facility] 1,000 mg 4-26 tablet by ity of tablet 00:00: mouth in [address] and 1 tablet in the evening. Take with meals. MUST BE SEEN FOR FURTHER REFILLS metFORMIN 2023-0 Yes [id number] 1000mg Take 1 [facility] 1,000 mg 4-26 tablet by ity of tablet 00:00: mouth in [address] and 1 tablet in the evening. Take with meals. MUST BE SEEN FOR FURTHER REFILLS metFORMIN 2023-0 Yes [id number] 1000mg Take 1 [facility] 1,000 mg 4-26 tablet by ity of tablet 00:00: mouth in [address] and 1 tablet in the evening. Take with meals. MUST BE SEEN FOR FURTHER REFILLS metFORMIN 3-0 Yes [id number] 1000mg Take 1 [facility] 1,000 mg 4-26 tablet by ity of tablet 00:00: mouth in [address] and 1 tablet in the evening. Take with meals. MUST BE SEEN FOR FURTHER REFILLS metFORMIN 2022-0 Yes [id number] 1000mg Take 1 [facility] 1,000 mg 4-26 tablet by ity of tablet 00:00: mouth in [address] and 1 tablet in the evening. Take with meals. MUST BE SEEN FOR FURTHER REFILLS metFORMIN 2022-0 Yes [id number] 1000mg Take 1 [facility] 1,000 mg 4-26 tablet by ity of tablet 00:00: mouth in [address] and 1 tablet in the evening. Take with meals. MUST BE SEEN FOR FURTHER REFILLS metFORMIN 2022-0 Yes [id number] 1000mg Take 1 [facility] 1,000 mg 4-26 tablet by ity of tablet 00:00: mouth in [address] and 1 tablet in the evening. Take with meals. MUST BE SEEN FOR FURTHER REFILLS metFORMIN 2022-0 2023- No [id number] 1000mg Take 1 [facility] 1,000 mg 4-26 07-19 tablet by ity o f tablet 00:00: 00:00 mouth in [place] 00 :00 [facility] and 1 tablet in the evening. Take with meals. MUST BE SEEN FOR FURTHER REFILLS metFORMIN 2023-0 2023- No [id number] 1000mg Take 1 [facility] 1,000 mg 4-26 07-19 tablet by ity o f tablet 00:00: 00:00 mouth in [place] 00 :00 [facility] and 1 tablet in the evening. Take with meals. MUST BE SEEN FOR FURTHER REFILLS metFORMIN 2023-0 2023- No [id number] 1000mg Take 1 [facility] 1,000 mg 4-26 07-19 tablet by ity o f tablet 00:00: 00:00 mouth in [place] 00 :00 [facility] and 1 tablet in the evening. Take with meals. MUST BE SEEN FOR FURTHER REFILLS metFORMIN 2022-0 3- No [id number] 1000mg Take 1 [facility] 1,000 mg 09-05- tablet by [facility] tablet 00:00: 00:00 mouth in [place] 00 :00 the Medical morning Branch and 1 tablet in the evening. Take with meals. MUST BE SEEN FOR FURTHER REFILLS fluticasone 2022-0 Yes [id number] 1{spray Use 1 [facility] propionate 4-21 } [place] [id number] 00:00: each [place] mcg/actuati 00 nostril in Me dical on nasal the Branch spray morning and 1 [place] in the evening. fluticasone 0 Yes [id number] 1{spray Use 1 [facility] propionate 4-21 } [place] [id number] 00:00: each [place] mcg/actuati 00 nostril in Me dical on nasal the Branch spray morning and 1 [place] in the evening. fluticasone 0 Yes [id number] 1{spray Use 1 [facility] propionate 4-21 } [place] [id number] 00:00: each [place] mcg/actuati 00 nostril in Md dical on nasal the Branch spray morning and 1 [place] in the evening. fluticasone 2022-0 Yes [id number] 1{spray Use 1 [facility] propionate 4-21 } [place] [id number] 00:00: each [place] mcg/actuati 00 nostril in Me dical on nasal the Branch spray morning and 1 [place] in the evening. fluticasone 2022-0 Yes [id number] 1{spray Use 1 [facility] propionate 4-21 } [place] [id number] 00:00: each [place] mcg/actuati 00 nostril in Me dical on nasal the Branch spray morning and 1 [place] in the evening. fluticasone 2022-0 Yes [id number] 1{spray Use 1 [facility] propionate 4-21 } [place] [id number] 00:00: each [place] mcg/actuati 00 nostril in Me dical on nasal the Branch spray morning and 1 [place] in the evening. fluticasone 2022-0 Yes [id number] 1{spray Use 1 [facility] propionate 4-21 } [place] [id number] 00:00: each [place] mcg/actuati 00 nostril in Md dical on nasal the Branch spray morning and 1 [place] in the evening. fluticasone 2022-0 Yes [id number] 1{spray Use 1 [facility] propionate 4-21 } [place] in ity o f 50 00:00: each [place] mcg/actuati 00 nostril in Me dical on nasal the Branch spray morning and 1 [place] in the evening. fluticasone 2022-0 Yes [id number] 1{spray Use 1 [facility] propionate 4-21 } [place] in ity o f 50 00:00: each [place] mcg/actuati 00 nostril in Me dical on nasal the Branch spray morning and 1 [place] in the evening. fluticasone 2022-0 Yes [id number] 1{spray Use 1 [facility] propionate 4-21 } [place] in ity o f 50 00:00: each [place] mcg/actuati 00 nostril in Me dical on nasal the Branch spray morning and 1 [place] in the evening. fluticasone 2022-0 Yes [id number] 1{spray Use 1 [facility] propionate 4-21 } [place] in ity o f 50 00:00: each [place] mcg/actuati 00 nostril in Me dical on nasal the Branch spray morning and 1 [place] in the evening. fluticasone 2022-0 Yes [id number] 1{spray Use 1 [facility] propionate 4-21 } [place] in ity o f 50 00:00: each [place] mcg/actuati 00 nostril in Me dical on nasal the Branch spray morning and 1 [place] in the evening. fluticasone 2022-0 Yes [id number] 1{spray Use 1 [facility] propionate 4-21 } [place] in ity o f 50 00:00: each [place] mcg/actuati 00 nostril in Me dical on nasal the Branch spray morning and 1 [place] in the evening. fluticasone 2022-0 Yes [id number] 1{spray Use 1 [facility] propionate 4-21 } [place] in ity o f 50 00:00: each [place] mcg/actuati 00 nostril in Me dical on nasal the Branch spray morning and 1 [place] in the evening. fluticasone 2022-0 Yes [id number] 1{spray Use 1 [facility] propionate 4-21 } [place] in ity o f 50 00:00: each [place] mcg/actuati 00 nostril in Me dical on nasal the Branch spray morning and 1 [place] in the evening. fluticasone 2022-0 Yes [id number] 1{spray Use 1 [facility] propionate 4-21 } [place] in ity o f 50 00:00: each [place] mcg/actuati 00 nostril in Me dical on nasal the Branch spray morning and 1 [place] in the evening. fluticasone 2022-0 Yes [id number] 1{spray Use 1 [facility] propionate 4-21 } [place] in ity o f 50 00:00: each [place] mcg/actuati 00 nostril in Me dical on nasal the Branch spray morning and 1 [place] in the evening. fluticasone 2022-0 Yes [id number] 1{spray Use 1 [facility] propionate 4-21 } [place] in ity o f 50 00:00: each [place] mcg/actuati 00 nostril in Me dical on nasal the Branch spray morning and 1 [place] in the evening. fluticasone 2022-0 Yes [id number] 1{spray Use 1 [facility] propionate 4-21 } [place] in ity o f 50 00:00: each [place] mcg/actuati 00 nostril in Me dical on nasal the Branch spray morning and 1 [place] in the evening. fluticasone 2022-0 Yes [id number] 1{spray Use 1 [facility] propionate 4-21 } [place] in ity o f 50 00:00: each [place] mcg/actuati 00 nostril in Me dical on nasal the Branch spray morning and 1 [place] in the evening. fluticasone 2022-0 Yes [id number] 1{spray Use 1 [facility] propionate 4-21 } [place] in ity o f 50 00:00: each [place] mcg/actuati 00 nostril in Me dical on nasal the Branch spray morning and 1 [place] in the evening. fluticasone 2022-0 Yes [id number] 1{spray Use 1 [facility] propionate 4-21 } [place] in ity o f 50 00:00: each [place] mcg/actuati 00 nostril in Me dical on nasal the Branch spray morning and 1 [place] in the evening. fluticasone 2022-0 Yes [id number] 1{spray Use 1 [facility] propionate 4-21 } [place] in ity o f 50 00:00: each [place] mcg/actuati 00 nostril in Me dical on nasal the Branch spray morning and 1 [place] in the evening. fluticasone 0 Yes [id number] 1{spray Use 1 [facility] propionate 4-21 } [place] in ity o f 50 00:00: each [place] mcg/actuati 00 nostril in Me dical on nasal the Branch spray morning and 1 [place] in the evening. fluticasone 0 Yes [id number] 1{spray Use 1 [facility] propionate 4-21 } [place] in ity o f 50 00:00: each [place] mcg/actuati 00 nostril in Me dical on nasal the Branch spray morning and 1 [place] in the evening. fluticasone 0 Yes [id number] 1{spray Use 1 [facility] propionate 4-21 } [place] in ity o f 50 00:00: each [place] mcg/actuati 00 nostril in Me dical on nasal the Branch spray morning and 1 [place] in the evening. fluticasone 0 Yes [id number] 1{spray Use 1 [facility] propionate 4-21 } [place] in ity o f 50 00:00: each [place] mcg/actuati 00 nostril in Me dical on nasal the Branch spray morning and 1 [place] in the evening. fluticasone 0 Yes [id number] 1{spray Use 1 [facility] propionate 4-21 } [place] in ity o f 50 00:00: each [place] mcg/actuati 00 nostril in Me dical on nasal the Branch spray morning and 1 [place] in the evening. fluticasone 0 Yes [id number] 1{spray Use 1 [facility] propionate 4-21 } [place] in ity o f 50 00:00: each [place] mcg/actuati 00 nostril in Me dical on nasal the Branch spray morning and 1 [place] in the evening. fluticasone 0 Yes [id number] 1{spray Use 1 [facility] propionate 4-21 } [place] in ity o f 50 00:00: each [place] mcg/actuati 00 nostril in Me dical on nasal the Branch spray morning and 1 [place] in the evening. fluticasone 2022-0 Yes [id number] 1{spray Use 1 [facility] propionate 4-21 } [place] in ity o f 50 00:00: each [place] mcg/actuati 00 nostril in Me dical on nasal the Branch spray morning and 1 [place] in the evening. fluticasone 2022-0 Yes [id number] 1{spray Use 1 [facility] propionate 4-21 } [place] in ity o f 50 00:00: each [place] mcg/actuati 00 nostril in Me dical on nasal the Branch spray morning and 1 [place] in the evening. fluticasone 2022-0 Yes [id number] 1{spray Use 1 [facility] propionate 4-21 } [place] in ity o f 50 00:00: each [place] mcg/actuati 00 nostril in Me dical on nasal the Branch spray morning and 1 [place] in the evening. fluticasone 2022-0 Yes [id number] 1{spray Use 1 [facility] propionate 4-21 } [place] in ity o f 50 00:00: each [place] mcg/actuati 00 nostril in Me dical on nasal the Branch spray morning and 1 [place] in the evening. fluticasone 0 Yes [id number] 1{spray Use 1 [facility] propionate 4-21 } [place] in ity o f 50 00:00: each [place] mcg/actuati 00 nostril in Me dical on nasal the Branch spray morning and 1 [place] in the evening. fluticasone 0 Yes [id number] 1{spray Use 1 [facility] propionate 4-21 } [place] in ity o f 50 00:00: each [place] mcg/actuati 00 nostril in Me dical on nasal the Branch spray morning and 1 [place] in the evening. metoprolol 2022- No 25mg Take 25 mg [facility] tartrate 25 2-20 02-20 by mouth ity of mg tablet 09:42: 00:00 in the [place] 57 :00 morning Medical and 25 mg Branch in the evening. Patient takes half tablet twice daily metoprolol 2022-0 Yes [id number] 12.5mg Take 0.5 [facility] tartrate 25 2-20 tablets by it y of mg tablet 00:00: mouth in [place] [facility] 00 the Medical morning Branch and 0.5 tablets in the evening. Patient takes half tablet twice daily losartan 50 2022-0 Yes [id number] 50mg Take 1 [facility] mg tablet 2-20 tablet by ity o f 00:00: mouth in [place] 00 the Medical morning. Branch metoprolol 2022-0 Yes [id number] 12.5mg Take 0.5 [facility] tartrate 25 2-20 tablets by it y of mg tablet 00:00: mouth in [facility] the Medical morning Branch and 0.5 tablets in the evening. Patient takes half tablet twice daily losartan 50 2023-0 Yes [id number] 50mg Take 1 [facility] mg tablet 2-20 tablet by ity o f 00:00: mouth in [place] the morning. Branch metoprolol 2023-0 Yes [id number] 12.5mg Take 0.5 [facility] tartrate 25 2-20 tablets by it y of mg tablet 00:00: mouth in [place] [facility] the morning Branch and 0.5 tablets in the evening. Patient takes half tablet twice daily losartan 50 2023-0 Yes [id number] 50mg Take 1 [facility] mg tablet 2-20 tablet by ity o f 00:00: mouth in [place] the morning. Branch metoprolol 2023-0 Yes [id number] 12.5mg Take 0.5 [facility] tartrate 25 2-20 tablets by it y of mg tablet 00:00: mouth in [facility] the morning Branch and 0.5 tablets in the evening. Patient takes half tablet twice daily losartan 50 3-0 Yes [id number] 50mg Take 1 [facility] mg tablet 2-20 tablet by ity o f 00:00: mouth in [place] the morning. Branch metoprolol 2023-0 Yes [id number] 12.5mg Take 0.5 [facility] tartrate 25 2-20 tablets by it y of mg tablet 00:00: mouth in [place] [facility] the morning Branch and 0.5 tablets in the evening. Patient takes half tablet twice daily losartan 50 3-0 Yes [id number] 50mg Take 1 [facility] mg tablet 2-20 tablet by ity o f 00:00: mouth in [place] the morning. Branch metoprolol 2023-0 Yes [id number] 12.5mg Take 0.5 [facility] tartrate 25 2-20 tablets by it y of mg tablet 00:00: mouth in [facility] the morning Branch and 0.5 tablets in the evening. Patient takes half tablet twice daily losartan 50 2023-0 Yes [id number] 50mg Take 1 [facility] mg tablet 2-20 tablet by ity o f 00:00: mouth in [place] the morning. Branch metoprolol 2023-0 Yes [id number] 12.5mg Take 0.5 [facility] tartrate 25 2-20 tablets by it y of mg tablet 00:00: mouth [place] the Medical morning Branch and 0.5 tablets in the evening. Patient takes half tablet twice daily losartan 50 2023-0 Yes [id number] 50mg Take 1 [facility] mg tablet 2-20 tablet by ity o f 00:00: mouth in [place] the morning. Branch metoprolol 2023-0 Yes [id number] 12.5mg Take 0.5 [facility] tartrate 25 2-20 tablets by it y of mg tablet 00:00: mouth in [facility] the morning Branch and 0.5 tablets in the evening. Patient takes half tablet twice daily losartan 50 3-0 Yes [id number] 50mg Take 1 [facility] mg tablet 2-20 tablet by ity o f 00:00: mouth in [place] the morning. Branch metoprolol 2023-0 Yes [id number] 12.5mg Take 0.5 [facility] tartrate 25 2-20 tablets by it y of mg tablet 00:00: mouth in [facility] the morning Branch and 0.5 tablets in the evening. Patient takes half tablet twice daily losartan 50 3-0 Yes [id number] 50mg Take 1 [facility] mg tablet 2-20 tablet by ity o f 00:00: mouth in [place] the morning. Branch metoprolol 2023-0 Yes [id number] 12.5mg Take 0.5 [facility] tartrate 25 2-20 tablets by it y of mg tablet 00:00: mouth in [facility] the morning Branch and 0.5 tablets in the evening. Patient takes half tablet twice daily losartan 50 3-0 Yes [id number] 50mg Take 1 [facility] mg tablet 2-20 tablet by ity o f 00:00: mouth in [place] the morning. Branch metoprolol 2023-0 Yes [id number] 12.5mg Take 0.5 [facility] tartrate 25 2-20 tablets by it y of mg tablet 00:00: mouth in [facility] the morning Branch and 0.5 tablets in the evening. Patient takes half tablet twice daily losartan 50 2023-0 Yes [id number] 50mg Take 1 [facility] mg tablet 2-20 tablet by ity o f 00:00: mouth in [place] the morning. Branch metoprolol 2023-0 Yes [id number] 12.5mg Take 0.5 [facility] tartrate 25 2-20 tablets by it y of mg tablet 00:00: mouth [place] the Medical morning Branch and 0.5 tablets in the evening. Patient takes half tablet twice daily losartan 50 3-0 Yes [id number] 50mg Take 1 [facility] mg tablet 2-20 tablet by ity o f 00:00: mouth in [place] the morning. Branch metoprolol 2023-0 Yes [id number] 12.5mg Take 0.5 [facility] tartrate 25 2-20 tablets by it y of mg tablet 00:00: mouth [place] the morning Branch and 0.5 tablets in the evening. Patient takes half tablet twice daily losartan 50 3-0 Yes [id number] 50mg Take 1 [facility] mg tablet 2-20 tablet by ity o f 00:00: mouth in [place] the morning. Branch metoprolol 2023-0 Yes [id number] 12.5mg Take 0.5 [facility] tartrate 25 2-20 tablets by it y of mg tablet 00:00: mouth in [facility] the morning Branch and 0.5 tablets in the evening. Patient takes half tablet twice daily losartan 50 3-0 Yes [id number] 50mg Take 1 [facility] mg tablet 2-20 tablet by ity o f 00:00: mouth in [place] the morning. Branch metoprolol 2023-0 Yes [id number] 12.5mg Take 0.5 [facility] tartrate 25 2-20 tablets by it y of mg tablet 00:00: mouth in [facility] the morning Branch and 0.5 tablets in the evening. Patient takes half tablet twice daily losartan 50 3-0 Yes [id number] 50mg Take 1 [facility] mg tablet 2-20 tablet by ity o f 00:00: mouth in [place] the morning. Branch metoprolol 2023-0 Yes [id number] 12.5mg Take 0.5 [facility] tartrate 25 2-20 tablets by it y of mg tablet 00:00: mouth in [facility] the morning Branch and 0.5 tablets in the evening. Patient takes half tablet twice daily losartan 50 2023-0 Yes [id number] 50mg Take 1 [facility] mg tablet 2-20 tablet by ity o f 00:00: mouth in [place] the morning. Branch metoprolol 2023-0 Yes [id number] 12.5mg Take 0.5 [facility] tartrate 25 2-20 tablets by it y of mg tablet 00:00: mouth in the morning Branch and 0.5 tablets in the evening. Patient takes half tablet twice daily losartan 50 2023-0 Yes [id number] 50mg Take 1 [facility] mg tablet 2-20 tablet by ity o f 00:00: mouth in [place] the morning. Branch metoprolol 2023-0 Yes [id number] 12.5mg Take 0.5 [facility] tartrate 25 2-20 tablets by it y of mg tablet 00:00: mouth in [place] the morning Branch and 0.5 tablets in the evening. Patient takes half tablet twice daily losartan 50 2023-0 Yes [id number] 50mg Take 1 [facility] mg tablet 2-20 tablet by ity o f 00:00: mouth in [place] the morning. Branch metoprolol 2023-0 Yes [id number] 12.5mg Take 0.5 [facility] tartrate 25 2-20 tablets by it y of mg tablet 00:00: mouth in [facility] the morning Branch and 0.5 tablets in the evening. Patient takes half tablet twice daily losartan 50 3-0 Yes [id number] 50mg Take 1 [facility] mg tablet 2-20 tablet by ity o f 00:00: mouth in [place] the morning. Branch metoprolol 2023-0 Yes [id number] 12.5mg Take 0.5 [facility] tartrate 25 2-20 tablets by it y of mg tablet 00:00: mouth in [facility] the morning Branch and 0.5 tablets in the evening. Patient takes half tablet twice daily losartan 50 3-0 Yes [id number] 50mg Take 1 [facility] mg tablet 2-20 tablet by ity o f 00:00: mouth in [place] the morning. Branch metoprolol 2023-0 Yes [id number] 12.5mg Take 0.5 [facility] tartrate 25 2-20 tablets by it y of mg tablet 00:00: mouth in [facility] the morning Branch and 0.5 tablets in the evening. Patient takes half tablet twice daily losartan 50 2023-0 Yes [id number] 50mg Take 1 [facility] mg tablet 2-20 tablet by ity o f 00:00: mouth in [place] the morning. Branch metoprolol 2023-0 Yes [id number] 12.5mg Take 0.5 [facility] tartrate 25 2-20 tablets by it y of mg tablet 00:00: [place] [facility] morning Branch and 0.5 tablets in the evening. Patient takes half tablet twice daily losartan 50 2022-0 Yes [id number] 50mg Take 1 [facility] mg tablet 2-20 tablet by ity o f 00:00: mouth in [place] [address] the [facility] morning. Branch metoprolol Yes [id number] 12.5mg Take 0.5 [facility] tartrate 25 2-20 tablets by it y of mg tablet 00:00: mouth in [place] [facility] morning Branch and 0.5 tablets in the evening. Patient takes half tablet twice daily metoprolol 0 Yes [id number] 12.5mg Take 0.5 [facility] tartrate 25 2-20 tablets by it y of mg tablet 00:00: [place] [facility] morning Branch and 0.5 tablets in the evening. Patient takes half tablet twice daily metoprolol Yes [id number] 12.5mg Take 0.5 [facility] tartrate 25 2-20 tablets by it y of mg tablet 00:00: mouth in the [facility] and 0.5 tablets in the evening. Patient takes half tablet twice daily metoprolol 0 Yes [id number] 12.5mg Take 0.5 [facility] tartrate 25 2-20 tablets by it y of mg tablet 00:00: mouth in the [facility] and 0.5 tablets in the evening. Patient takes half tablet twice daily metoprolol 2022-0 Yes [id number] 12.5mg Take 0.5 [facility] tartrate 25 2-20 tablets by it y of mg tablet 00:00: [place] [facility] morning Branch and 0.5 tablets in the evening. Patient takes half tablet twice daily metoprolol 2022-0 Yes [id number] 12.5mg Take 0.5 [facility] tartrate 25 2-20 tablets by it y of mg tablet 00:00: mouth in [place] [facility] morning Branch and 0.5 tablets in the evening. Patient takes half tablet twice daily metoprolol 0 2022- No [id number] 12.5mg Take 0.5 [facility] tartrate 25 2-20 07-19 tablets by i ty of mg tablet 00:00: 00:00 mouth in [place] 00 :00 the Medical morning Branch and 0.5 tablets in the evening. Patient takes half tablet twice daily metoprolol 2022- No [id number] 12.5mg Take 0.5 [facility] tartrate 25 2-20 -19 tablets by i ty of mg tablet 00:00: 00:00 mouth in [place] 00 :00 the Medical morning Branch and 0.5 tablets in the evening. Patient takes half tablet twice daily metoprolol 2022- No [id number] 12.5mg Take 0.5 [facility] tartrate 25 2-20 - tablets by i ty of mg tablet 00:00: 00:00 mouth in [place] 00 :00 the Medical morning Branch and 0.5 tablets in the evening. Patient takes half tablet twice daily metoprolol 2022- No [id number] 12.5mg Take 0.5 [facility] tartrate 25 2-29 11- tablets by i ty of mg tablet 00:00: 00:00 mouth in [facility] as 00 :00 the Medical morning Branch and 0.5 tablets in the evening. Patient takes half tablet twice daily losartan 50 2022- No [id number] 50mg Take 1 [facility] mg tablet 07-02 tablet by ity of 00:00: 00:00 mouth in [place] 00 :00 the [facility] Yes [id number] 10mg TAKE 1 [facility] 10 mg 2-14 TABLET BY ity of tablet 00:00: MOUTH IN [place] 00 [id number] TA[facility] 1 [facility] 10 mg 2-14 TABLET BY ity of tablet 00:00: MOUTH IN [place] 00 THE [facility] MONTELUKAST 0 Yes [id number] 10mg TAKE 1 [facility] 10 mg 2-14 TABLET BY ity of tablet 00:00: MOUTH IN [place] 00 THE [facility] MONTELUKAST 0 Yes [id number] 10mg TAKE 1 [facility] 10 mg 2-14 TABLET BY ity of tablet 00:00: MOUTH IN [place] 00 THE [facility] MONTELUKAST 0 Yes [id number] 10mg TAKE 1 [facility] 10 mg 2-14 TABLET BY ity of tablet 00:00: [facility] [place] [id number] 1 [facility] 10 mg 2-14 TABLET BY ity of tablet 00:00: MOUTH IN [place] 00 THE [facility] MORNING [place] MONTELUKAST Yes [id number] 10mg TAKE 1 [facility] 10 mg 2-14 TABLET BY ity of tablet 00:00: MOUTH IN [place] 00 THE [facility] MORNING [place] MONTELUKAST Yes [id number] 10mg TAKE 1 [facility] 10 mg 2-14 TABLET BY ity of tablet 00:00: MOUTH IN [place] 00 THE [facility] MORNING [place] MONTELUKAST Yes [id number] 10mg TAKE 1 [facility] 10 mg 2-14 TABLET BY ity of tablet 00:00: MOUTH IN [place] 00 THE [facility] MONTEKAST Yes [id number] 10mg TAKE 1 [facility] 10 mg 2-14 TABLET BY ity of tablet 00:00: MOUTH IN [place] 00 THE [facility] MONTEKAST Yes [id number] 10mg TAKE 1 [facility] 10 mg 2-14 TABLET BY ity of tablet 00:00: MOUTH IN [place] 00 THE [facility] MONTEKA Yes [id number] 10mg TAKE 1 [facility] 10 mg 2-14 TABLET BY ity of tablet 00:00: MOUTH IN [place] 00 THE [facility] [place] Yes [id number] 10mg TAKE 1 [facility] 10 mg 2-14 TABLET BY ity of tablet 00:00: MOUTH IN [place] 00 THE [facility] MONTEKAST Yes [id number] 10mg TAKE 1 [facility] 10 mg 2-14 TABLET BY ity of tablet 00:00: MOUTH IN [place] 00 THE [facility] MONTELUKAST Yes [id number] 10mg TAKE 1 [facility] 10 mg 2-14 TABLET BY ity of tablet 00:00: MOUTH IN [place] 00 THE [facility] MONTEKAST Yes [id number] 10mg TAKE 1 [facility] 10 mg 2-14 TABLET BY ity of tablet 00:00: MOUTH IN [place] 00 THE [facility] MONTEKAST Yes [id number] 10mg TAKE 1 [facility] 10 mg 2-14 TABLET BY ity of tablet 00:00: MOUTH IN [place] 00 THE [facility] MONTELUKAST Yes [id number] 10mg TAKE 1 [facility] 10 mg 2-14 TABLET BY ity of tablet 00:00: MOUTH IN [place] 00 THE Medical MORNING Branch MONTELUKAST 0 Yes [id number] 10mg TAKE 1 [facility] 10 mg 2-14 TABLET BY ity of tablet 00:00: MOUTH IN [place] 00 THE Medical MORNING Branch MONTELUKAST 0 3- No [id number] 10mg TAKE 1 [facility] 10 mg 2-14 - TABLET BY ity of tablet 00:00: 00:00 MOUTH IN [place] 00 :00 THE Medical MORNING Branch metFORMIN 2021-05 Yes [id number] 1000mg Take 1 [facility] 1,000 mg 2-12 tablet by ity of tablet 00:00: mouth in [place] 00 the Medical morning Branch and 1 tablet in the evening. Take with meals. Omeprazole 2021-05 Yes [id number] 20mg Take 1 [facility] 20 mg 2-12 tablet by ity of tablet 00:00: mouth in [place] the morning. Branch metFORMIN 2021-05 Yes [id number] 1000mg Take 1 [facility] 1,000 mg 2-12 tablet by ity of tablet 00:00: mouth in [place] the morning [place] and 1 tablet in the evening. Take with meals. Omeprazole 2021-05 Yes [id number] 20mg Take 1 [facility] 20 mg 2-12 tablet by ity of tablet 00:00: mouth in [place] the morning. Branch metFORMIN 2021-05 Yes [id number] 1000mg Take 1 [facility] 1,000 mg 2-12 tablet by ity of tablet 00:00: mouth in [place] the morning Branch and 1 tablet in the evening. Take with meals. Omeprazole 2021-05 Yes [id number] 20mg Take 1 [facility] 20 mg 2-12 tablet by ity of tablet 00:00: mouth in [place] the morning. Branch metFORMIN 2021-05 Yes [id number] 1000mg Take 1 [facility] 1,000 mg 2-12 tablet by ity of tablet 00:00: mouth in [place] the morning Branch and 1 tablet in the evening. Take with meals. Omeprazole 2021-05 Yes [id number] 20mg Take 1 [facility] 20 mg 2-12 tablet by ity of tablet 00:00: mouth in [place] the morning. Branch metFORMIN 2021-05 Yes [id number] 1000mg Take 1 [facility] 1,000 mg 2-12 tablet by ity of tablet 00:00: mouth in [place] [address] the morning Branch and 1 tablet in the evening. Take with meals. Omeprazole 2021- Yes [id number] 20mg Take 1 [facility] 20 mg 2-12 tablet by ity of tablet 00:00: mouth in [place] the morning. Branch metFORMIN 2021- Yes [id number] 1000mg Take 1 [facility] 1,000 mg 2-12 tablet by ity of tablet 00:00: mouth in [place] [address] the morning Branch and 1 tablet in the evening. Take with meals. Omeprazole 2021- Yes [id number] 20mg Take 1 [facility] 20 mg 2-12 tablet by ity of tablet 00:00: mouth in [place] the morning. Branch metFORMIN 2021- Yes [id number] 1000mg Take 1 [facility] 1,000 mg 2-12 tablet by ity of tablet 00:00: mouth in [place] [address] the morning [place] and 1 tablet in the evening. Take with meals. Omeprazole 2021- Yes [id number] 20mg Take 1 [facility] 20 mg 2-12 tablet by ity of tablet 00:00: mouth in [place] [address] the morning. Branch metFORMIN 2021- Yes [id number] 1000mg Take 1 [facility] 1,000 mg 2-12 tablet by ity of tablet 00:00: mouth in [place] [address] the [place] and 1 tablet in the evening. Take with meals. Omeprazole 2021- Yes [id number] 20mg Take 1 [facility] 20 mg 2-12 tablet by ity of tablet 00:00: mouth in [place] the . Branch metFORMIN 2021- Yes [id number] 1000mg Take 1 [facility] 1,000 mg 2-12 tablet by ity of tablet 00:00: mouth in [place] [address] the [facility] morning Branch and 1 tablet in the evening. Take with meals. Omeprazole 2021-1 Yes [id number] 20mg Take 1 [facility] 20 mg 2-12 tablet by ity of tablet 00:00: mouth in [place] [address] the morning. Branch metFORMIN 2021- Yes [id number] 1000mg Take 1 [facility] 1,000 mg 2-12 tablet by ity of tablet 00:00: mouth in [address] morning [place] and 1 tablet in the evening. Take with meals. Omeprazole 2021- Yes [id number] 20mg Take 1 [facility] 20 mg 2-12 tablet by ity of tablet 00:00: mouth in [place] the morning. Branch metFORMIN 2021- Yes [id number] 1000mg Take 1 [facility] 1,000 mg 2-12 tablet by ity of tablet 00:00: mouth in [place] [address] the morning Branch and 1 tablet in the evening. Take with meals. Omeprazole 2021-1 Yes [id number] 20mg Take 1 [facility] 20 mg 2-12 tablet by ity of tablet 00:00: mouth in [place] the morning. Branch metFORMIN 2021- Yes [id number] 1000mg Take 1 [facility] 1,000 mg 2-12 tablet by ity of tablet 00:00: mouth in [place] the morning Branch and 1 tablet in the evening. Take with meals. Omeprazole 2021- Yes [id number] 20mg Take 1 [facility] 20 mg 2-12 tablet by ity of tablet 00:00: mouth in [place] the morning. Branch metFORMIN 2021- Yes [id number] 1000mg Take 1 [facility] 1,000 mg 2-12 tablet by ity of tablet 00:00: mouth in [place] [address] the Branch and 1 tablet in the evening. Take with meals. Omeprazole 2021-1 Yes [id number] 20mg Take 1 [facility] 20 mg 2-12 tablet by ity of tablet 00:00: mouth in [place] the morning. Branch metFORMIN 2021- Yes [id number] 1000mg Take 1 [facility] 1,000 mg 2-12 tablet by ity of tablet 00:00: mouth in [place] [address] the Branch and 1 tablet in the evening. Take with meals. Omeprazole 2021-1 Yes [id number] 20mg Take 1 [facility] 20 mg 2-12 tablet by ity of tablet 00:00: mouth in [place] the morning. Branch metFORMIN 2021-1 Yes [id number] 1000mg Take 1 [facility] 1,000 mg 2-12 tablet by ity of tablet 00:00: mouth in [place] [address] the morning Branch and 1 tablet in the evening. Take with meals. Omeprazole 2021-1 Yes [id number] 20mg Take 1 [facility] 20 mg 2-12 tablet by ity of tablet 00:00: mouth in [place] [address] the morning. Branch Omeprazole 2021-1 Yes [id number] 20mg Take 1 [facility] 20 mg 2-12 tablet by ity of tablet 00:00: mouth in [place] 00 the Medical morning. Branch Omeprazole 2021-1 Yes [id number] 20mg Take 1 [facility] 20 mg 2-12 tablet by ity of tablet 00:00: mouth in [place] 00 the Medical morning. Branch Omeprazole 2021-1 Yes [id number] 20mg Take 1 [facility] 20 mg 2-12 tablet by ity of tablet 00:00: mouth in [place] 00 the Medical morning. Branch Omeprazole 2021-1 Yes [id number] 20mg Take 1 [facility] 20 mg 2-12 tablet by ity of tablet 00:00: mouth in [place] the Medical morning. Branch Omeprazole 2021-1 Yes [id number] 20mg Take 1 [facility] 20 mg 2-12 tablet by ity of tablet 00:00: mouth in [place] the Medical morning. Branch Omeprazole 2-1 Yes [id number] 20mg Take 1 [facility] 20 mg 2-12 tablet by ity of tablet 00:00: mouth in [place] the Medical morning. Branch Omeprazole 2021-1 Yes [id number] 20mg Take 1 [facility] 20 mg 2-12 tablet by ity of tablet 00:00: mouth in [place] the Medical morning. Branch Omeprazole 2021-1 Yes [id number] 20mg Take 1 [facility] 20 mg 2-12 tablet by ity of tablet 00:00: mouth in [place] the Medical morning. Branch Omeprazole 2021-1 Yes [id number] 20mg Take 1 [facility] 20 mg 2-12 tablet by ity of tablet 00:00: mouth in [place] the Medical morning. Branch Omeprazole 2-1 Yes [id number] 20mg Take 1 [facility] 20 mg 2-12 tablet by ity of tablet 00:00: mouth in [place] the Medical morning. Branch Omeprazole 2-1 Yes [id number] 20mg Take 1 [facility] 20 mg 2-12 tablet by ity of tablet 00:00: mouth in [place] 00 the Medical morning. Branch Omeprazole 2-1 Yes [id number] 20mg Take 1 [facility] 20 mg 2-12 tablet by ity of tablet 00:00: mouth in [place] 00 the Medical morning. Branch Omeprazole 2-1 Yes [id number] 20mg Take 1 [facility] 20 mg 2-12 tablet by ity of tablet 00:00: mouth in [place] 00 the Medical morning. Branch Omeprazole 2021-05 Yes [id number] 20mg Take 1 [facility] 20 mg 2-12 tablet by ity of tablet 00:00: mouth in [place] 00 the morning. Branch Omeprazole 2021-05 Yes [id number] 20mg Take 1 [facility] 20 mg 2-12 tablet by ity of tablet 00:00: mouth in [place] 00 the morning. Branch Omeprazole 2021-05 Yes [id number] 20mg Take 1 [facility] 20 mg 2-12 tablet by ity of tablet 00:00: mouth in [place] 00 the morning. Branch Omeprazole 2021-05 Yes [id number] 20mg Take 1 [facility] 20 mg 2-12 tablet by ity of tablet 00:00: mouth in [place] 00 the morning. Branch Omeprazole 2021-05 Yes [id number] 20mg Take 1 [facility] 20 mg 2-12 tablet by ity of tablet 00:00: mouth in [place] 00 the morning. Branch Omeprazole 2021-05 Yes [id number] 20mg Take 1 [facility] 20 mg 2-12 tablet by ity of tablet 00:00: mouth in [place] 00 the morning. Branch metFORMIN 2021-05 2023- No [id number] 1000mg Take 1 [facility] 1,000 mg 2-12 04-26 tablet by ity o f tablet 00:00: 00:00 mouth in [place] 00 :00 the morning Branch and 1 tablet in the evening. Take with meals. apixaban 2021-05 Yes 1358 5mg Take 1 [facility] (ELIQUIS) 5 1-25 tablet by ity of mg tablet 00:00: mouth in [facility] 00 the morning Branch and 1 tablet in the evening. Indication s: atrial fibrillati on apixaban 2021-05 Yes 1358 5mg Take 1 [facility] (ELIQUIS) 5 1-25 tablet by ity of mg tablet 00:00: mouth in [facility] 00 the Medical morning Branch and 1 tablet in the evening. Indication s: atrial fibrillati on apixaban 2021-05 Yes 1358 5mg Take 1 [facility] (ELIQUIS) 5 1-25 tablet by ity of mg tablet 00:00: mouth in [facility] 00 the Medical morning Branch and 1 [...] 1358 5mg Take 1 [facility] (ELIQUIS) 5 -25 tablet by ity of mg tablet 00:00: mouth [place] 00 the Medical morning Branch and 1 tablet in the evening. Indication s: atrial fibrillati on apixaban 2021-05- No 1358 5mg Take 1 Un[facility] s (ELIQUIS) 5 06-06 tablet by it y of mg tablet 00:00: 00:00 mouth in [place] 00 :00 the Medical morning Branch and 1 tablet in the evening. Indication s: atrial fibrillati on apixaban 2021-05- No 1358 5mg Take 1 Un[facility] s (ELIQUIS) 5 06-06 tablet by it y of mg tablet 00:00: 00:00 mouth in [place] 00 :00 the Medical morning Branch and 1 tablet in the evening. Indication s: atrial fibrillati on apixaban 2021-05- No 1358 5mg Take 1 Un[facility] s (ELIQUIS) 5 06-06 tablet by it y of mg tablet 00:00: 00:00 mouth in [place] 00 :00 the Medical morning Branch and 1 tablet in the evening. Indication s: atrial fibrillati on apixaban 2021-05- No 1358 5mg Take 1 Univer s (ELIQUIS) 5 06-06 tablet by it y of mg tablet 00:00: 00:00 mouth in [place] 00 :00 the Medical morning Branch and 1 tablet in the evening. Indication s: atrial fibrillati on apixaban 2021-05- No 5mg QD Take [address] [facility] (ELIQUIS) 5 06-06-14 tablet (5 [facility] mg Tab 00:00: 00:00 mg total) Medic al tablet 00 :00 by mouth Center daily. losartan 2021-05- No 25mg Take 25 mg [facility] mg tablet 06-03 by mouth ity o f 14:08: 00:00 daily. [place] 17 :00 [facility] losartan 25 2021-05- No 25mg Take 25 mg [facility] mg tablet 06-03 by mouth ity o f 14:08: 00:00 daily. [place] 17 :00 [facility] losartan 25 2021-05- No 25mg Take 25 mg [facility] mg tablet 1-22 11-22 by mouth ity o f 14:08: 00:00 daily. [place] 17 :00 Medical Branch losartan 25 2021-05- No 25mg Take 25 mg [facility] mg tablet 06-03 by mouth ity o f 14:08: 00:00 daily. [place] 17 :00 Medical Branch metoprolol 2021-05 Yes 25mg Take 25 mg U nivers tartrate 25 1-22 by mouth ity of mg tablet 13:45: in the [place] [address] morning Medical and 25 mg Branch in the evening. Patient takes half tablet twice daily metoprolol 2021-05 Yes 25mg Take 25 mg U nivers tartrate 25 1-22 by mouth ity of mg tablet 13:45: in the [place] [address] morning Medical and 25 mg Branch in the evening. Patient takes half tablet twice daily metoprolol 2021-05 Yes 25mg Take 25 mg U nivers tartrate 25 1-22 by mouth ity of mg tablet 13:45: in the [place] [address] morning Medical and 25 mg Branch in the evening. Patient takes half tablet twice daily metoprolol 2021-05 Yes 25mg Take 25 mg U nivers tartrate 25 1-22 by mouth ity of mg tablet 13:45: in the [place] [address] morning Medical and 25 mg Branch in the evening. Patient takes half tablet twice daily metoprolol 2021-05 Yes 25mg Take 25 mg U nivers tartrate 25 1-22 by mouth ity of mg tablet 13:45: in the [place] [address] morning Medical and 25 mg Branch in the evening. Patient takes half tablet twice daily metoprolol 2021-05 Yes 25mg Take 25 mg U nivers tartrate 25 1-22 by mouth ity of mg tablet 13:45: in the [place] [address] morning Medical and 25 mg Branch in the evening. Patient takes half tablet twice daily metoprolol 2021-05 Yes 25mg Take 25 mg U nivers tartrate 25 1-22 by mouth ity of mg tablet 13:45: in the [place] [address] morning Medical and 25 mg Branch in the evening. Patient takes half tablet twice daily metoprolol 2021-05 Yes 25mg Take 25 mg U nivers tartrate 25 1-22 by mouth ity of mg tablet 13:45: in the [place] [address] morning Medical and 25 mg Branch in the evening. Patient takes half tablet twice daily metoprolol 2021-05 Yes 25mg Take 25 mg U nivers tartrate 25 1-22 by mouth ity of mg tablet 13:45: in the [place] [address] morning Medical and 25 mg Branch in the evening. Patient takes half tablet twice daily metoprolol 2021-05 Yes 25mg Take 25 mg U nivers tartrate 25 1-22 by mouth ity of mg tablet 13:45: in the [place] [address] morning Medical and 25 mg Branch in the evening. Patient takes half tablet twice daily metoprolol 2021-05 Yes 25mg Take 25 mg U nivers tartrate 25 1-22 by mouth ity of mg tablet 13:45: in the [place] [address] morning Medical and 25 mg Branch in the evening. Patient takes half tablet twice daily metoprolol 2021-05 Yes 25mg Take 25 mg U nivers tartrate 25 1-22 by mouth ity of mg tablet 13:45: in the [place] [address] morning Medical and 25 mg Branch in the evening. Patient takes half tablet twice daily metoprolol 2021-05 Yes 25mg Take 25 mg U nivers tartrate 25 1-22 by mouth ity of mg tablet 13:45: in the [place] [address] morning Medical and 25 mg Branch in the evening. Patient takes half tablet twice daily metoprolol 2021-05 Yes 25mg Take 25 mg U nivers tartrate 25 1-22 by mouth ity of mg tablet 13:45: in the [place] [address] morning Medical and 25 mg Branch in the evening. Patient takes half tablet twice daily metoprolol 2021-05 Yes 25mg Take 25 mg [facility] nivers tartrate 25 1-22 by mouth ity of mg tablet 13:45: in the [place] [address] morning Medical and 25 mg Branch in the evening. Patient takes half tablet twice daily metoprolol 2021-05 Yes 25mg Take 25 mg U nivers tartrate 25 1-22 by mouth ity of mg tablet 13:45: in the [place] [address] morning Medical and 25 mg Branch in the evening. Patient takes half tablet twice daily metoprolol 2021-05 Yes 25mg Take 25 mg U nivers tartrate 25 1-22 by mouth ity of mg tablet 13:45: in the [place] [address] morning Medical and 25 mg Branch in the evening. Patient takes half tablet twice daily albuterol 2021-05 Yes [id number] 2{puff} Inhale 2 [facility] (PROAIR 1-22 Puffs ity of HFA) 90 00:00: every 6 [place] mcg/actuati 00 (six) Medical on inhaler hours as Branc h needed for Wheezing, Shortness of Breath or Chest tightness. losartan 2021-05 Yes [id number] 100mg Take 1 [facility] [place] 100 mg 1-22 tablet by ity of tablet 00:00: mouth in [place] 00 the Medical morning. Branch losartan 2021-05 Yes [id number] 100mg Take 1 [facility] [place] 100 mg 1-22 tablet by ity of tablet 00:00: mouth in [place] 00 the Medical morning. Branch albuterol 2021-05 Yes [id number] 2{puff} Inhale 2 [facility] (PROAIR 1-22 Puffs ity of HFA) 90 00:00: every 6 [place] mcg/actuati 00 (six) Medical on inhaler hours as Branc h needed for Wheezing, Shortness of Breath or Chest tightness. albuterol 2021-05 Yes [id number] 2{puff} Inhale 2 [facility] (PROAIR 1-22 Puffs ity of HFA) 90 00:00: every 6 [place] mcg/actuati 00 (six) Medical on inhaler hours as Branc h needed for Wheezing, Shortness of Breath or Chest tightness. losartan 2021-05 Yes [id number] 100mg Take 1 [facility] [place] 100 mg 1-22 tablet by ity of tablet 00:00: mouth in [place] 00 the Medical morning. Branch albuterol 2021-05 Yes [id number] 2{puff} Inhale 2 [facility] (PROAIR 1-22 Puffs ity of HFA) 90 00:00: every 6 [place] mcg/actuati 00 (six) Medical on inhaler hours as Branc h needed for Wheezing, Shortness of Breath or Chest tightness. losartan 2021-05 Yes [id number] 100mg Take 1 [facility] [place] 100 mg 1-22 tablet by ity of tablet 00:00: mouth in [place] 00 the Medical morning. Branch albuterol 2021-05 Yes [id number] 2{puff} Inhale 2 [facility] (PROAIR 1-22 Puffs ity of HFA) 90 00:00: every 6 [place] mcg/actuati 00 (six) Medical on inhaler hours as Branc h needed for Wheezing, Shortness of Breath or Chest tightness. losartan 2021-05 Yes [id number] 100mg Take 1 [facility] [place] 100 mg 1-22 tablet by ity of tablet 00:00: mouth in [place] 00 the Medical morning. Branch albuterol 2021-05 Yes [id number] 2{puff} Inhale 2 [facility] (PROAIR 1-22 Puffs ity of HFA) 90 00:00: every 6 [place] mcg/actuati 00 (six) Medical on inhaler hours as Branc h needed for Wheezing, Shortness of Breath or Chest tightness. losartan 2021-05 Yes [id number] 100mg Take 1 [facility] [place] 100 mg 1-22 tablet by ity of tablet 00:00: mouth in [place] 00 the Medical morning. Branch albuterol 2021-05 Yes [id number] 2{puff} Inhale 2 [facility] (PROAIR 1-22 Puffs ity of HFA) 90 00:00: every 6 [place] mcg/actuati 00 (six) Medical on inhaler hours as Branc h needed for Wheezing, Shortness of Breath or Chest tightness. losartan 2021-05 Yes [id number] 100mg Take 1 [facility] [place] 100 mg 1-22 tablet by ity of tablet 00:00: mouth in [place] 00 the Medical morning. Branch albuterol 2021-05 Yes [id number] 2{puff} Inhale 2 [facility] (PROAIR 1-22 Puffs ity of HFA) 90 00:00: every 6 [place] mcg/actuati 00 (six) Medical on inhaler hours as Branc h needed for Wheezing, Shortness of Breath or Chest tightness. losartan 2021-05 Yes [id number] 100mg Take 1 [facility] [place] 100 mg 1-22 tablet by ity of tablet 00:00: mouth in [place] 00 the Medical morning. Branch albuterol 2021-05 Yes [id number] 2{puff} Inhale 2 [facility] (PROAIR 1-22 Puffs ity of HFA) 90 00:00: every 6 [place] mcg/actuati 00 (six) Medical on inhaler hours as Branc h needed for Wheezing, Shortness of Breath or Chest tightness. losartan 2021-05 Yes [id number] 100mg Take 1 [facility] [place] 100 mg 1-22 tablet by ity of tablet 00:00: mouth in [place] 00 the Medical morning. Branch albuterol 2021-05 Yes [id number] 2{puff} Inhale 2 [facility] (PROAIR 1-22 Puffs ity of HFA) 90 00:00: every 6 [place] mcg/actuati 00 (six) Medical on inhaler hours as Branc h needed for Wheezing, Shortness of Breath or Chest tightness. losartan 2021-05 Yes [id number] 100mg Take 1 [facility] [place] 100 mg 1-22 tablet by ity of tablet 00:00: mouth in [place] 00 the Medical morning. Branch losartan 2021-05 Yes [id number] 100mg Take 1 [facility] [place] 100 mg 1-22 tablet by ity of tablet 00:00: mouth in [place] 00 the Medical morning. Branch albuterol 2021-05 Yes [id number] 2{puff} Inhale 2 [facility] (PROAIR 1-22 Puffs ity of HFA) 90 00:00: every 6 [place] mcg/actuati 00 (six) Medical on inhaler hours as Branc h needed for Wheezing, Shortness of Breath or Chest tightness. losartan 2021-05 Yes [id number] 100mg Take 1 [facility] [place] 100 mg 1-22 tablet by ity of tablet 00:00: mouth in [place] 00 the Medical morning. Branch albuterol 2021-05 Yes [id number] 2{puff} Inhale 2 [facility] (PROAIR 1-22 Puffs ity of HFA) 90 00:00: every 6 [place] mcg/actuati 00 (six) Medical on inhaler hours as Branc h needed for Wheezing, Shortness of Breath or Chest tightness. losartan 2021-05 Yes [id number] 100mg Take 1 [facility] [place] 100 mg 1-22 tablet by ity of tablet 00:00: mouth in [place] 00 the Medical morning. Branch albuterol 2021-05 Yes [id number] 2{puff} Inhale 2 [facility] (PROAIR 1-22 Puffs ity of HFA) 90 00:00: every 6 [place] mcg/actuati 00 (six) Medical on inhaler hours as Branc h needed for Wheezing, Shortness of Breath or Chest tightness. losartan 2021-05 Yes [id number] 100mg Take 1 [facility] [place] 100 mg 1-22 tablet by ity of tablet 00:00: mouth in [place] 00 the Medical morning. Branch albuterol 2021-05 Yes [id number] 2{puff} Inhale 2 [facility] (PROAIR 1-22 Puffs ity of HFA) 90 00:00: every 6 [place] mcg/actuati 00 (six) Medical on inhaler hours as Branc h needed for Wheezing, Shortness of Breath or Chest tightness. losartan 2021-05 Yes [id number] 100mg Take 1 [facility] [place] 100 mg 1-22 tablet by ity of tablet 00:00: mouth in [place] 00 the Medical morning. Branch albuterol 2021-05 Yes [id number] 2{puff} Inhale 2 [facility] (PROAIR 1-22 Puffs ity of HFA) 90 00:00: every 6 [place] mcg/actuati 00 (six) Medical on inhaler hours as Branc h needed for Wheezing, Shortness of Breath or Chest tightness. losartan 2021-05 Yes [id number] 100mg Take 1 [facility] [place] 100 mg 1-22 tablet by ity of tablet 00:00: mouth in [place] 00 the Medical morning. Branch albuterol 2021-05 Yes [id number] 2{puff} Inhale 2 [facility] (PROAIR 1-22 Puffs ity of HFA) 90 00:00: every 6 [place] mcg/actuati 00 (six) Medical on inhaler hours as Branc h needed for Wheezing, Shortness of Breath or Chest tightness. losartan 2021-05 Yes [id number] 100mg Take 1 [facility] [place] 100 mg 1-22 tablet by ity of tablet 00:00: mouth in [place] 00 the Medical morning. Branch albuterol 2021-05 Yes [id number] 2{puff} Inhale 2 [facility] (PROAIR 1-22 Puffs ity of HFA) 90 00:00: every 6 [place] mcg/actuati 00 (six) Medical on inhaler hours as Branc h needed for Wheezing, Shortness of Breath or Chest tightness. losartan 2021-05 Yes [id number] 100mg Take 1 [facility] [place] 100 mg 1-22 tablet by ity of tablet 00:00: mouth in [place] 00 the Medical morning. Branch albuterol 2021-05 Yes [id number] 2{puff} Inhale 2 [facility] (PROAIR 1-22 Puffs ity of HFA) 90 00:00: every 6 [place] mcg/actuati 00 (six) Medical on inhaler hours as Branc h needed for Wheezing, Shortness of Breath or Chest tightness. losartan 2021-05 Yes [id number] 100mg Take 1 [facility] [place] 100 mg 1-22 tablet by ity of tablet 00:00: mouth in [place] 00 the Medical morning. Branch albuterol 2021-05 Yes [id number] 2{puff} Inhale 2 [facility] (PROAIR 1-22 Puffs ity of HFA) 90 00:00: every 6 [place] mcg/actuati 00 (six) Medical on inhaler hours as Branc h needed for Wheezing, Shortness of Breath or Chest tightness. losartan 2021-05 Yes [id number] 100mg Take 1 [facility] [place] 100 mg 1-22 tablet by ity of tablet 00:00: mouth in [place] 00 the Medical morning. Branch albuterol 2021-05 Yes [id number] 2{puff} Inhale 2 [facility] (PROAIR 1-22 Puffs ity of HFA) 90 00:00: every 6 [place] mcg/actuati 00 (six) Medical on inhaler hours as Branc h needed for Wheezing, Shortness of Breath or Chest tightness. losartan 2021-05 Yes [id number] 100mg Take 1 [facility] [place] 100 mg 1-22 tablet by ity of tablet 00:00: mouth in [place] 00 the Medical morning. Branch albuterol 2021-05 Yes [id number] 2{puff} Inhale 2 [facility] (PROAIR 1-22 Puffs ity of HFA) 90 00:00: every 6 [place] mcg/actuati 00 (six) Medical on inhaler hours as Branc h needed for Wheezing, Shortness of Breath or Chest tightness. losartan 2021-05 Yes [id number] 100mg Take 1 [facility] [place] 100 mg 1-22 tablet by ity of tablet 00:00: mouth in [place] 00 the Medical morning. Branch albuterol 2021-05 Yes [id number] 2{puff} Inhale 2 [facility] (PROAIR 1-22 Puffs ity of HFA) 90 00:00: every 6 [place] mcg/actuati 00 (six) Medical on inhaler hours as Branc h needed for Wheezing, Shortness of Breath or Chest tightness. losartan 2021-05 Yes [id number] 100mg Take 1 [facility] [place] 100 mg 1-22 tablet by ity of tablet 00:00: mouth in [place] 00 the Medical morning. Branch albuterol 2021-05 Yes [id number] 2{puff} Inhale 2 [facility] (PROAIR 1-22 Puffs ity of HFA) 90 00:00: every 6 [place] mcg/actuati 00 (six) Medical on inhaler hours as Branc h needed for Wheezing, Shortness of Breath or Chest tightness. losartan 2021-05 Yes [id number] 100mg Take 1 [facility] [place] 100 mg 1-22 tablet by ity of tablet 00:00: mouth in [place] 00 the Medical morning. Branch albuterol 2021-05 Yes [id number] 2{puff} Inhale 2 [facility] (PROAIR 1-22 Puffs ity of HFA) 90 00:00: every 6 [place] mcg/actuati 00 (six) Medical on inhaler hours as Branc h needed for Wheezing, Shortness of Breath or Chest tightness. losartan 2021-05 Yes [id number] 100mg Take 1 [facility] [place] 100 mg 1-22 tablet by ity of tablet 00:00: mouth in [place] 00 the Medical morning. Branch albuterol 2021-05 Yes [id number] 2{puff} Inhale 2 [facility] (PROAIR 1-22 Puffs ity of HFA) 90 00:00: every 6 [place] mcg/actuati 00 (six) Medical on inhaler hours as Branc h needed for Wheezing, Shortness of Breath or Chest tightness. losartan 2021-05 Yes [id number] 100mg Take 1 [facility] [place] 100 mg 1-22 tablet by ity of tablet 00:00: mouth in [place] 00 the Medical morning. Branch albuterol 2021-05 Yes [id number] 2{puff} Inhale 2 [facility] (PROAIR 1-22 Puffs ity of HFA) 90 00:00: every 6 [place] mcg/actuati 00 (six) Medical on inhaler hours as Branc h needed for Wheezing, Shortness of Breath or Chest tightness. losartan 2021-05 Yes [id number] 100mg Take 1 [facility] [place] 100 mg 1-22 tablet by ity of tablet 00:00: mouth in [place] 00 the Medical morning. Branch albuterol 2021-05 Yes [id number] 2{puff} Inhale 2 [facility] (PROAIR 1-22 Puffs ity of HFA) 90 00:00: every 6 [place] mcg/actuati 00 (six) Medical on inhaler hours as Branc h needed for Wheezing, Shortness of Breath or Chest tightness. losartan 2021-05 Yes [id number] 100mg Take 1 [facility] [place] 100 mg 1-22 tablet by ity of tablet 00:00: mouth in [place] 00 the Medical morning. Branch albuterol 2021-05 Yes [id number] 2{puff} Inhale 2 [facility] (PROAIR 1-22 Puffs ity of HFA) 90 00:00: every 6 [place] mcg/actuati 00 (six) Medical on inhaler hours as Branc h needed for Wheezing, Shortness of Breath or Chest tightness. losartan 2021-05 Yes [id number] 100mg Take 1 [facility] [place] 100 mg 1-22 tablet by ity of tablet 00:00: mouth in [place] 00 the Medical morning. Branch albuterol 2021-05 Yes [id number] 2{puff} Inhale 2 [facility] (PROAIR 1-22 Puffs ity of HFA) 90 00:00: every 6 [place] mcg/actuati 00 (six) Medical on inhaler hours as Branc h needed for Wheezing, Shortness of Breath or Chest tightness. losartan 2021-05 Yes [id number] 100mg Take 1 [facility] [place] 100 mg 1-22 tablet by ity of tablet 00:00: mouth in [place] 00 the Medical morning. Branch albuterol 2021-05 Yes [id number] 2{puff} Inhale 2 [facility] (PROAIR 1-22 Puffs ity of HFA) 90 00:00: every 6 [place] mcg/actuati 00 (six) Medical on inhaler hours as Branc h needed for Wheezing, Shortness of Breath or Chest tightness. losartan 2021-05 Yes [id number] 100mg Take 1 [facility] [place] 100 mg 1-22 tablet by ity of tablet 00:00: mouth in [place] 00 the Medical morning. Branch albuterol 2021-05 Yes [id number] 2{puff} Inhale 2 [facility] (PROAIR 1-22 Puffs ity of HFA) 90 00:00: every 6 [place] mcg/actuati 00 (six) Medical on inhaler hours as Branc h needed for Wheezing, Shortness of Breath or Chest tightness. losartan 2021-05 Yes [id number] 100mg Take 1 [facility] [place] 100 mg 1-22 tablet by ity of tablet 00:00: mouth in [place] 00 the Medical morning. Branch albuterol 2021-05 Yes [id number] 2{puff} Inhale 2 [facility] (PROAIR 1-22 Puffs ity of HFA) 90 00:00: every 6 [place] mcg/actuati 00 (six) Medical on inhaler hours as Branc h needed for Wheezing, Shortness of Breath or Chest tightness. losartan 2021-05 Yes [id number] 100mg Take 1 [facility] [place] 100 mg 1-22 tablet by ity of tablet 00:00: mouth in [place] 00 the Medical morning. Branch albuterol 2021-05 Yes [id number] 2{puff} Inhale 2 [facility] (PROAIR 1-22 Puffs ity of HFA) 90 00:00: every 6 [place] mcg/actuati 00 (six) Medical on inhaler hours as Branc h needed for Wheezing, Shortness of Breath or Chest tightness. losartan 2021-05 Yes [id number] 100mg Take 1 [facility] [place] 100 mg 1-22 tablet by ity of tablet 00:00: mouth in [place] 00 the Medical morning. Branch albuterol 2021-05 Yes [id number] 2{puff} Inhale 2 [facility] (PROAIR 1-22 Puffs ity of HFA) 90 00:00: every 6 [place] mcg/actuati 00 (six) Medical on inhaler hours as Branc h needed for Wheezing, Shortness of Breath or Chest tightness. losartan 2021-05 Yes [id number] 100mg Take 1 [facility] [place] 100 mg 1-22 tablet by ity of tablet 00:00: mouth in [place] 00 the Medical morning. Branch albuterol 2021-05 Yes [id number] 2{puff} Inhale 2 [facility] (PROAIR 1-22 Puffs ity of HFA) 90 00:00: every 6 [place] mcg/actuati 00 (six) Medical on inhaler hours as Branc h needed for Wheezing, Shortness of Breath or Chest tightness. losartan 2021-05 Yes [id number] 100mg Take 1 [facility] [place] 100 mg 1-22 tablet by ity of tablet 00:00: mouth in [place] 00 the Medical morning. Branch albuterol 2021-05 Yes [id number] 2{puff} Inhale 2 [facility] (PROAIR 1-22 Puffs ity of HFA) 90 00:00: every 6 [place] mcg/actuati 00 (six) Medical on inhaler hours as Branc h needed for Wheezing, Shortness of Breath or Chest tightness. losartan 2021-05 Yes [id number] 100mg Take 1 [facility] [place] 100 mg 1-22 tablet by ity of tablet 00:00: mouth in [place] 00 the Medical morning. Branch albuterol 2021-05 Yes [id number] 2{puff} Inhale 2 [facility] (PROAIR 1-22 Puffs ity of HFA) 90 00:00: every 6 [place] mcg/actuati 00 (six) Medical on inhaler hours as Branc h needed for Wheezing, Shortness of Breath or Chest tightness. losartan 2021-05 Yes [id number] 100mg Take 1 [facility] [place] 100 mg 1-22 tablet by ity of tablet 00:00: mouth in [place] 00 the Medical morning. Branch albuterol 2021-05 Yes [id number] 2{puff} Inhale 2 [facility] (PROAIR 1-22 Puffs ity of HFA) 90 00:00: every 6 [place] mcg/actuati 00 (six) Medical on inhaler hours as Branc h needed for Wheezing, Shortness of Breath or Chest tightness. losartan 2021-05 Yes [id number] 100mg Take 1 [place] 100 mg 1-22 tablet by ity of tablet 00:00: mouth in [place] 00 the Medical morning. Branch albuterol 2021-05 Yes [id number] 2{puff} Inhale 2 [facility] (PROAIR 1-22 Puffs ity of HFA) 90 00:00: every 6 [place] mcg/actuati 00 (six) Medical on inhaler hours as Branc h needed for Wheezing, Shortness of Breath or Chest tightness. losartan 2021-05 Yes [id number] 100mg Take 1 [facility] [place] 100 mg 1-22 tablet by ity of tablet 00:00: mouth in [place] 00 the Medical morning. Branch albuterol 2021-05 Yes [id number] 2{puff} Inhale 2 [facility] (PROAIR 1-22 Puffs ity of HFA) 90 00:00: every 6 [place] mcg/actuati 00 (six) Medical on inhaler hours as Branc h needed for Wheezing, Shortness of Breath or Chest tightness. losartan 2021-05 Yes [id number] 100mg Take 1 [place] 100 mg 1-22 tablet by ity of tablet 00:00: mouth in [place] 00 the Medical morning. Branch albuterol 2021-05 Yes [id number] 2{puff} Inhale 2 [facility] (PROAIR 1-22 Puffs ity of HFA) 90 00:00: every 6 [place] mcg/actuati 00 (six) Medical on inhaler hours as Branc h needed for Wheezing, Shortness of Breath or Chest tightness. losartan 2021-05 Yes [id number] 100mg Take 1 [place] 100 mg 1-22 tablet by ity of tablet 00:00: mouth in [place] 00 the Medical morning. Branch albuterol 2021-05 Yes [id number] 2{puff} Inhale 2 [facility] (PROAIR 1-22 Puffs ity of HFA) 90 00:00: every 6 [place] mcg/actuati 00 (six) Medical on inhaler hours as Branc h needed for Wheezing, Shortness of Breath or Chest tightness. losartan 2021-05 Yes [id number] 100mg Take 1 [place] 100 mg 1-22 tablet by ity of tablet 00:00: mouth in [place] 00 the Medical morning. Branch albuterol 2021-05 Yes [id number] 2{puff} Inhale 2 [facility] (PROAIR 1-22 Puffs ity of HFA) 90 00:00: every 6 [place] mcg/actuati 00 (six) Medical on inhaler hours as Branc h needed for Wheezing, Shortness of Breath or Chest tightness. albuterol 2021-05 Yes [id number] 2{puff} Inhale 2 [facility] (PROAIR 1-22 Puffs ity of HFA) 90 00:00: every 6 [place] mcg/actuati 00 (six) Medical on inhaler hours as Branc h needed for Wheezing, Shortness of Breath or Chest tightness. albuterol 2021-05 Yes [id number] 2{puff} Inhale 2 [facility] (PROAIR 1-22 Puffs ity of HFA) 90 00:00: every 6 [place] mcg/actuati 00 (six) Medical on inhaler hours as Branc h needed for Wheezing, Shortness of Breath or Chest tightness. albuterol 2021-05 Yes [id number] 2{puff} Inhale 2 [facility] (PROAIR 1-22 Puffs ity of HFA) 90 00:00: every 6 [place] mcg/actuati 00 (six) Medical on inhaler hours as Branc h needed for Wheezing, Shortness of Breath or Chest tightness. albuterol 2021-05 Yes [id number] 2{puff} Inhale 2 [facility] (PROAIR 1-22 Puffs ity of HFA) 90 00:00: every 6 [place] mcg/actuati 00 (six) Medical on inhaler hours as Branc h needed for Wheezing, Shortness of Breath or Chest tightness. albuterol 2021-05 Yes [id number] 2{puff} Inhale 2 [facility] (PROAIR 1-22 Puffs ity of HFA) 90 00:00: every 6 [place] mcg/actuati 00 (six) Medical on inhaler hours as Branc h needed for Wheezing, Shortness of Breath or Chest tightness. albuterol 2021-05 Yes [id number] 2{puff} Inhale 2 [facility] (PROAIR 1-22 Puffs ity of HFA) 90 00:00: every 6 [place] mcg/actuati 00 (six) Medical on inhaler hours as Branc h needed for Wheezing, Shortness of Breath or Chest tightness. albuterol 2021-05 Yes [id number] 2{puff} Inhale 2 [facility] (PROAIR 1-22 Puffs ity of HFA) 90 00:00: every 6 [place] mcg/actuati 00 (six) Medical on inhaler hours as Branc h needed for Wheezing, Shortness of Breath or Chest tightness. albuterol 2021-05 Yes [id number] 2{puff} Inhale 2 [facility] (PROAIR 1-22 Puffs ity of HFA) 90 00:00: every 6 [place] mcg/actuati 00 (six) Medical on inhaler hours as Branc h needed for Wheezing, Shortness of Breath or Chest tightness. albuterol 2021-05 Yes [id number] 2{puff} Inhale 2 [facility] (PROAIR 1-22 Puffs ity of HFA) 90 00:00: every 6 [place] mcg/actuati 00 (six) Medical on inhaler hours as Branc h needed for Wheezing, Shortness of Breath or Chest tightness. albuterol 2021-05 Yes [id number] 2{puff} Inhale 2 [facility] (PROAIR 1-22 Puffs ity of HFA) 90 00:00: every 6 [place] mcg/actuati 00 (six) Medical on inhaler hours as Branc h needed for Wheezing, Shortness of Breath or Chest tightness. albuterol 2021-05 Yes [id number] 2{puff} Inhale 2 [facility] (PROAIR 1-22 Puffs ity of HFA) 90 00:00: every 6 [place] mcg/actuati 00 (six) Medical on inhaler hours as Branc h needed for Wheezing, Shortness of Breath or Chest tightness. albuterol 2021-05 Yes [id number] 2{puff} Inhale 2 [facility] (PROAIR 1-22 Puffs ity of HFA) 90 00:00: every 6 [place] mcg/actuati 00 (six) Medical on inhaler hours as Branc h needed for Wheezing, Shortness of Breath or Chest tightness. albuterol 2021-05 Yes [id number] 2{puff} Inhale 2 [facility] (PROAIR 1-22 Puffs ity of HFA) 90 00:00: every 6 [place] mcg/actuati 00 (six) Medical on inhaler hours as Branc h needed for Wheezing, Shortness of Breath or Chest tightness. albuterol 2021-05 Yes [id number] 2{puff} Inhale 2 [facility] (PROAIR 1-22 Puffs ity of HFA) 90 00:00: every 6 [place] mcg/actuati 00 (six) Medical on inhaler hours as Branc h needed for Wheezing, Shortness of Breath or Chest tightness. albuterol 2021-05 Yes [id number] 2{puff} Inhale 2 [facility] (PROAIR 1-22 Puffs ity of HFA) 90 00:00: every 6 [place] mcg/actuati 00 (six) Medical on inhaler hours as Branc h needed for Wheezing, Shortness of Breath or Chest tightness. apixaban Yes [id number] 5mg Take 1 [facility] [...] Indication s: atrial fibrillati on apixaban 2021-0 202- No 1358 5mg Take 1 [facility] s (ELIQUIS) 5 02-09 11-25 tablet by it y of mg tablet 00:00: 00:00 mouth in [facility] as 00 :00 the Medical morning Branch and 1 tablet in the evening. Indication s: atrial fibrillati on metFORMIN 2021-0 Yes [id number] 1000mg Take 1 [facility] 1,000 mg 9-23 tablet by ity of tablet 00:00: mouth in [place] the morning Branch and 1 tablet in the evening. Take with meals. Omeprazole 2021-0 Yes [id number] 20mg Take 1 [facility] 20 mg 9-23 tablet by ity of tablet 00:00: mouth in [place] the morning. Branch metFORMIN 2021-0 Yes [id number] 1000mg Take 1 [facility] 1,000 mg 9-23 tablet by ity of tablet 00:00: mouth in [place] the morning Branch and 1 tablet in the evening. Take with meals. Omeprazole 2021-0 Yes [id number] 20mg Take 1 [facility] 20 mg 9-23 tablet by ity of tablet 00:00: mouth in [place] the morning. Branch metFORMIN 2021-0 Yes [id number] 1000mg Take 1 [facility] 1,000 mg 9-23 tablet by ity of tablet 00:00: mouth in [place] the Branch and 1 tablet in the evening. Take with meals. Omeprazole 2-0 Yes [id number] 20mg Take 1 [facility] 20 mg 9-23 tablet by ity of tablet 00:00: mouth in [place] the morning. Branch metFORMIN 2021-0 Yes [id number] 1000mg Take 1 [facility] 1,000 mg 9-23 tablet by ity of tablet 00:00: mouth in [place] the morning Branch and 1 tablet in the evening. Take with meals. Omeprazole 2022-0 Yes [id number] 20mg Take 1 [facility] 20 mg 9-23 tablet by ity of tablet 00:00: mouth in [place] the morning. Branch metFORMIN 2021-0 Yes [id number] 1000mg Take 1 [facility] 1,000 mg 9-23 tablet by ity of tablet 00:00: mouth in [place] [address] the morning Branch and 1 tablet in the evening. Take with meals. Omeprazole 2022-0 Yes [id number] 20mg Take 1 [facility] 20 mg 9-23 tablet by ity of tablet 00:00: mouth in [place] the morning. Branch metFORMIN 2022-0 Yes [id number] 1000mg Take 1 [facility] 1,000 mg 9-23 tablet by ity of tablet 00:00: mouth in [place] the morning Branch and 1 tablet in the evening. Take with meals. Omeprazole 2022-0 Yes [id number] 20mg Take 1 [facility] 20 mg 9-23 tablet by ity of tablet 00:00: mouth in [place] the morning. Branch metFORMIN 2022-0 Yes [id number] 1000mg Take 1 [facility] 1,000 mg 9-23 tablet by ity of tablet 00:00: mouth in [place] the Branch and 1 tablet in the evening. Take with meals. Omeprazole 2022-0 Yes [id number] 20mg Take 1 [facility] 20 mg 9-23 tablet by ity of tablet 00:00: mouth in [place] the . Branch metFORMIN 2022-0 Yes [id number] 1000mg Take 1 [facility] 1,000 mg 9-23 tablet by ity of tablet 00:00: mouth in [place] [address] the Branch and 1 tablet in the evening. Take with meals. Omeprazole 2022-0 Yes [id number] 20mg Take 1 [facility] 20 mg 9-23 tablet by ity of tablet 00:00: mouth in [place] the . Branch metFORMIN 2022-0 Yes [id number] 1000mg Take 1 [facility] 1,000 mg 9-23 tablet by ity of tablet 00:00: mouth in [place] the Branch and 1 tablet in the evening. Take with meals. Omeprazole 2022-0 Yes [id number] 20mg Take 1 [facility] 20 mg 9-23 tablet by ity of tablet 00:00: mouth in [place] the morning. Branch metFORMIN 2022-0 Yes [id number] 1000mg Take 1 [facility] 1,000 mg 9-23 tablet by ity of tablet 00:00: mouth in [place] [address] the Branch and 1 tablet in the evening. Take with meals. Omeprazole 2022-0 Yes [id number] 20mg Take 1 [facility] 20 mg 9-23 tablet by ity of tablet 00:00: mouth in [place] [address] the morning. Branch metFORMIN 2022-0 Yes [id number] 1000mg Take 1 [facility] 1,000 mg 9-23 tablet by ity of tablet 00:00: mouth in [place] the morning Branch and 1 tablet in the evening. Take with meals. Omeprazole 2022-0 Yes [id number] 20mg Take 1 [facility] 20 mg 9-23 tablet by ity of tablet 00:00: mouth in [place] the morning. Branch metFORMIN 2022-0 Yes [id number] 1000mg Take 1 [facility] 1,000 mg 9-23 tablet by ity of tablet 00:00: mouth in [place] [address] the morning Branch and 1 tablet in the evening. Take with meals. Omeprazole 2022-0 Yes [id number] 20mg Take 1 [facility] 20 mg 9-23 tablet by ity of tablet 00:00: mouth in [place] the morning. Branch metFORMIN 2022-0 Yes [id number] 1000mg Take 1 [facility] 1,000 mg 9-23 tablet by ity of tablet 00:00: mouth in [place] [address] the morning [place] and 1 tablet in the evening. Take with meals. Omeprazole 2022-0 Yes [id number] 20mg Take 1 [facility] 20 mg 9-23 tablet by ity of tablet 00:00: mouth in [place] the morning. Branch metFORMIN 2022-0 Yes [id number] 1000mg Take 1 [facility] 1,000 mg 9-23 tablet by ity of tablet 00:00: mouth in [place] [address] the [facility] Branch and 1 tablet in the evening. Take with meals. Omeprazole 2022-0 Yes [id number] 20mg Take 1 [facility] 20 mg 9-23 tablet by ity of tablet 00:00: mouth in [place] the morning. Branch metFORMIN 2022-0 Yes [id number] 1000mg Take 1 [facility] 1,000 mg 9-23 tablet by ity of tablet 00:00: mouth in [place] [address] the [facility] morning Branch and 1 tablet in the evening. Take with meals. Omeprazole 2022-0 Yes [id number] 20mg Take 1 [facility] 20 mg 9-23 tablet by ity of tablet 00:00: mouth in [place] [address] the morning. Branch metFORMIN 2022-0 Yes [id number] 1000mg Take 1 [facility] 1,000 mg 9-23 tablet by ity of tablet 00:00: mouth in [place] [address] the [facility] morning Branch and 1 tablet in the evening. Take with meals. Omeprazole 2022-0 Yes [id number] 20mg Take 1 [facility] 20 mg 9-23 tablet by ity of tablet 00:00: mouth in [place] the Medical morning. Branch metFORMIN 2022-0 Yes [id number] 1000mg Take 1 [facility] 1,000 mg 9-23 tablet by ity of tablet 00:00: mouth in [place] the morning Branch and 1 tablet in the evening. Take with meals. Omeprazole 2022-0 Yes [id number] 20mg Take 1 [facility] 20 mg 9-23 tablet by ity of tablet 00:00: mouth in [place] 00 the Medical morning. Branch metFORMIN 2022-0 Yes [id number] 1000mg Take 1 [facility] 1,000 mg 9-23 tablet by ity of tablet 00:00: mouth in [place] the morning Branch and 1 tablet in the evening. Take with meals. Omeprazole 2022-0 Yes [id number] 20mg Take 1 [facility] 20 mg 9-23 tablet by ity of tablet 00:00: mouth in [place] the morning. Branch metFORMIN 2022-0 Yes [id number] 1000mg Take 1 [facility] 1,000 mg 9-23 tablet by ity of tablet 00:00: mouth in [place] [address] the Branch and 1 tablet in the evening. Take with meals. Omeprazole 2022-0 Yes [id number] 20mg Take 1 [facility] 20 mg 9-23 tablet by ity of tablet 00:00: mouth in [place] the . Branch metFORMIN 2022-0 2022- No [id number] 1000mg Take 1 [facility] 1,000 mg 9-23 12-12 tablet by ity o f tablet 00:00: 00:00 mouth in [place] 00 :00 the Branch and 1 tablet in the evening. Take with meals. Omeprazole 2022-0 2022- No [id number] 20mg Take 1 [facility] 20 mg 9-23 12-12 tablet by ity of tablet 00:00: 00:00 mouth in [place] 00 :00 the Medical morning. Branch metFORMIN 2022-0 2022- No [id number] 1000mg Take 1 [facility] 1,000 mg 9-23 12-12 tablet by ity o f tablet 00:00: 00:00 mouth in [place] 00 :00 the morning Branch and 1 tablet in the evening. Take with meals. Omeprazole 2022-0 2022- No [id number] 20mg Take 1 [facility] 20 mg 9-23 12-12 tablet by ity of tablet 00:00: 00:00 mouth in [place] 00 :00 the [facility] morning. Branch apixaban Yes 1358 5mg Take 1 [facility] (ELIQUIS) 5 9-07 tablet by ity of mg tablet 00:00: mouth in [place] [address] the [facility] morning [place] and 1 tablet in the evening. Indication s: atrial fibrillati on apixaban Yes 1358 5mg Take 1 [facility] (ELIQUIS) 5 9-07 tablet by ity of mg tablet 00:00: mouth in [place] [address] the [facility] and 1 tablet in the evening. Indication s: atrial fibrillati on apixaban Yes 1358 5mg Take 1 [facility] (ELIQUIS) 5 9-07 tablet by ity of mg tablet 00:00: mouth in [place] [address] the [facility] morning Branch and 1 tablet in the evening. Indication s: atrial fibrillati on apixaban Yes 1358 5mg Take 1 [facility] (ELIQUIS) 5 9-07 tablet by ity of mg tablet 00:00: mouth in [address] and 1 tablet in the evening. Indication s: atrial fibrillati on apixaban Yes 1358 5mg Take 1 [facility] (ELIQUIS) 5 9-07 tablet by ity of mg tablet 00:00: mouth in [place] [address] the [facility] and 1 tablet in the evening. Indication s: atrial fibrillati on apixaban Yes 1358 5mg Take 1 [facility] (ELIQUIS) 5 9-07 tablet by ity of mg tablet 00:00: mouth in [address] and 1 tablet in the evening. Indication s: atrial fibrillati on apixaban Yes 1358 5mg Take 1 [facility] (ELIQUIS) 5 9-07 tablet by ity of mg tablet 00:00: mouth in [place] [address] the [facility] morning Branch and 1 tablet in the evening. Indication s: atrial fibrillati on apixaban Yes 1358 5mg Take 1 [facility] (ELIQUIS) 5 9-07 tablet by ity of mg tablet 00:00: mouth in [place] [address] the [facility] Branch and 1 tablet in the evening. Indication s: atrial fibrillati on apixaban 2021- No 1358 5mg Take 1 [facility] s (ELIQUIS) 5 01-17 09-30 tablet by it y of mg tablet 00:00: 00:00 mouth in [place] 00 :00 the Medical morning Branch and 1 tablet in the evening. Indication s: atrial fibrillati on montelukast 2021- No 10mg Take 10 mg [facility] (SINGULAIR) 8-25 08-25 by mouth. it y of 10 mg 10:02: 00:00 [place] tablet 41 :00 Medical Branch montelukast Yes [id number] 10mg Take 1 [facility] (SINGULAIR) 8-25 tablet by ity of 10 mg 00:00: mouth in [place] tablet 00 the Medical [facility]. [id number] Take 1 [facility] (SINGULAIR) 8-25 tablet by ity of 10 mg 00:00: mouth in [place] tablet 00 the Medical morning. [place] montelukast Yes [id number] 10mg Take 1 [facility] (SINGULAIR) 8-25 tablet by ity of 10 mg 00:00: mouth in [place] tablet 00 the Medical morning. [place] [facility] [id number] 10mg Take 1 [facility] (SINGULAIR) 8-25 tablet by ity of 10 mg 00:00: mouth in [place] tablet 00 the Medical morning. [facility] [id number] 10mg Take 1 [facility] (SINGULAIR) 8-25 tablet by ity of 10 mg 00:00: mouth in [place] tablet 00 the Medical morning. [place] montelukast Yes [id number] 10mg Take 1 [facility] (SINGULAIR) 8-25 tablet by ity of 10 mg 00:00: mouth in [place] tablet 00 the Medical morning. [place] montelukast Yes [id number] 10mg Take 1 [facility] (SINGULAIR) 8-25 tablet by ity of 10 mg 00:00: mouth in [place] tablet 00 the Medical morning. [place] [facility] [id number] 10mg Take 1 [facility] (SINGULAIR) 8-25 tablet by ity of 10 mg 00:00: mouth in [place] tablet 00 the Medical morning. [facility] Yes [id number] 10mg Take 1 [facility] (SINGULAIR) 8-25 tablet by ity of 10 mg 00:00: mouth in [place] tablet 00 the Medical morning. [place] montelukast 0 Yes [id number] 10mg Take 1 [facility] (SINGULAIR) 8-25 tablet by ity of 10 mg 00:00: mouth in [place] tablet 00 the Medical morning. [place] montelust 0 Yes [id number] 10mg Take 1 [facility] (SINGULAIR) 8-25 tablet by ity of 10 mg 00:00: mouth in [place] tablet 00 the Medical morning. [place] montelust Yes [id number] 10mg Take 1 [facility] (SINGULAIR) 8-25 tablet by ity of 10 mg 00:00: mouth in [place] tablet 00 the Medical [facility]. [facility] [id number]mg Take 1 [facility] (SINGULAIR) 8-25 tablet by ity of 10 mg 00:00: mouth in [place] tablet 00 the Medical morning. [facility] [id number] 10mg Take 1 [facility] (SINGULAIR) 8-25 tablet by ity of 10 mg 00:00: mouth in [place] tablet 00 the Medical morning. [facility] [id number] 10mg Take 1 [facility] (SINGULAIR) 8-25 tablet by ity of 10 mg 00:00: mouth in [place] tablet 00 the Medical morning. [facility] [id number] 10mg Take 1 [facility] (SINGULAIR) 8-25 tablet by ity of 10 mg 00:00: mouth in [place] tablet 00 the Medical morning. [facility] [id number] 10mg Take 1 [facility] (SINGULAIR) 8-25 tablet by ity of 10 mg 00:00: mouth in [place] tablet 00 the Medical morning. [place] montelukast 0 Yes [id number] 10mg Take 1 [facility] (SINGULAIR) 8-25 tablet by ity of 10 mg 00:00: mouth in [place] tablet 00 the Medical morning. [place] montelukast 0 Yes [id number] 10mg Take 1 [facility] (SINGULAIR) 8-25 tablet by ity of 10 mg 00:00: mouth in [place] tablet 00 the Medical morning. Branch montelukast 0 Yes [id number] 10mg Take 1 [facility] (SINGULAIR) 8-25 tablet by ity of 10 mg 00:00: mouth in [place] tablet 00 the Medical morning. Branch montelukast 0 Yes [id number] 10mg Take 1 [facility] (SINGULAIR) 8-25 tablet by ity of 10 mg 00:00: mouth in [place] tablet 00 the Medical morning. Branch montelukast 0 Yes [id number] 10mg Take 1 [facility] (SINGULAIR) 8-25 tablet by ity of 10 mg 00:00: mouth in [place] tablet 00 the Medical morning. [place] montelukast Yes [id number] 10mg Take 1 [facility] (SINGULAIR) 8-25 tablet by ity of 10 mg 00:00: mouth in [place] tablet 00 the Medical morning. [place] montelukast Yes [id number] 10mg Take 1 [facility] (SINGULAIR) 8-25 tablet by ity of 10 mg 00:00: mouth in [place] tablet 00 the Medical morning. [place] montelukast Yes [id number] 10mg Take 1 [facility] (SINGULAIR) 8-25 tablet by ity of 10 mg 00:00: mouth in [place] tablet 00 the Medical morning. [place] montelukast 0 Yes [id number] 10mg Take 1 [facility] (SINGULAIR) 8-25 tablet by ity of 10 mg 00:00: mouth in [place] tablet 00 the Medical morning. [place] montelukast 0 Yes [id number] 10mg Take 1 [facility] (SINGULAIR) 8-25 tablet by ity of 10 mg 00:00: mouth in [place] tablet 00 the Medical morning. [place] montelukast 0 Yes [id number] 10mg Take 1 [facility] (SINGULAIR) 8-25 tablet by ity of 10 mg 00:00: mouth in [place] tablet 00 the Medical morning. [place] montelukast 0 Yes [id number] 10mg Take 1 [facility] (SINGULAIR) 8-25 tablet by ity of 10 mg 00:00: mouth in [place] tablet 00 the Medical morning. [place] montelukast 0 Yes [id number] 10mg Take 1 [facility] (SINGULAIR) 8-25 tablet by ity of 10 mg 00:00: mouth in [place] tablet 00 the Medical morning. Branch montelukast Yes [id number] 10mg Take 1 [facility] (SINGULAIR) 8-25 tablet by ity of 10 mg 00:00: mouth in [place] tablet 00 the Medical morning. Branch montelukast 2022- No [id number] 10mg Take 1 [facility] (SINGULAIR) 8-25 02-14 [...] Take 1 [facility]iver s (ELIQUIS) 5 8-19 - tablet by it y of mg tablet 00:00: 00:00 mouth in [place] 00 :00 the Medical morning Branch and 1 tablet in the evening. Indication s: atrial fibrillati on metFORMIN 2021-0 Yes [id number] 1000mg Take 1 [facility] 1,000 mg 8-02 tablet by ity of tablet 00:00: mouth in [place] [address] the [facility] morning [place] and 1 tablet in the evening. Take with meals. metFORMIN 2021-0 Yes [id number] 1000mg Take 1 [facility] 1,000 mg 8-02 tablet by ity of tablet 00:00: mouth in [place] [address] the [facility] morning [place] and 1 tablet in the evening. Take with meals. metFORMIN 2021-0 Yes [id number] 1000mg Take 1 [facility] 1,000 mg 8-02 tablet by ity of tablet 00:00: mouth in [place] [address] the [facility] morning [place] and 1 tablet in the evening. Take with meals. metFORMIN 2021-0 Yes [id number] 1000mg Take 1 [facility] 1,000 mg 8-02 tablet by ity of tablet 00:00: mouth in [address] morning [place] and 1 tablet in the evening. Take with meals. metFORMIN 2021-0 Yes [id number] 1000mg Take 1 [facility] 1,000 mg 8-02 tablet by ity of tablet 00:00: mouth in [address] morning [place] and 1 tablet in the evening. Take with meals. metFORMIN 2021-0 Yes [id number] 1000mg Take 1 [facility] 1,000 mg 8-02 tablet by ity of tablet 00:00: mouth in [address] morning [place] and 1 tablet in the evening. Take with meals. metFORMIN 2021-0 Yes [id number] 1000mg Take 1 [facility] 1,000 mg 8-02 tablet by ity of tablet 00:00: mouth in [address] morning [place] and 1 tablet in the evening. Take with meals. metFORMIN 202-0 Yes [id number] 1000mg Take 1 [facility] 1,000 mg 8-02 tablet by ity of tablet 00:00: mouth in [address] morning [place] and 1 tablet in the evening. Take with meals. metFORMIN 2021-0 Yes [id number] 1000mg Take 1 [facility] 1,000 mg 8-02 tablet by ity of tablet 00:00: mouth in [place] 00 the Medical morning Branch and 1 tablet in the evening. Take with meals. metFORMIN Yes [id number] 1000mg Take 1 [facility] 1,000 mg 8- tablet by ity of tablet 00:00: mouth in [place] 00 the [facility] morning Branch and 1 tablet in the evening. Take with meals. metFORMIN 2- No [id number] 1000mg Take 1 [facility] 1,000 mg 12-12 tablet by ity o f tablet 00:00: 00:00 mouth in [place] 00 :00 the [facility] morning Branch and 1 tablet in the evening. Take with meals. metFORMIN 2021- No [id number] 1000mg Take 1 [facility] 1,000 mg 12-12 tablet by ity o f tablet 00:00: 00:00 mouth in [place] 00 :00 the [facility] Branch and 1 tablet in the evening. Take with meals. apixaban Yes 1358 5mg Take 1 [facility] (ELIQUIS) 5 7-21 tablet by ity of mg tablet 00:00: mouth in [place] [facility] 00 the [facility] Branch and 1 tablet in the evening. Indication s: atrial fibrillati on apixaban Yes 1358 5mg Take 1 [facility] (ELIQUIS) 5 7-21 tablet by ity of mg tablet 00:00: mouth in [place] [facility] 00 the [facility] Branch and 1 tablet in the evening. Indication s: atrial fibrillati on apixaban 2022- No 1358 5mg Take 1 Univer s (ELIQUIS) 5 7-21 08-19 tablet by it y of mg tablet 00:00: 00:00 mouth in [facility] 00 :00 the [facility] Branch and 1 tablet in the evening. Indication s: atrial fibrillati on chlorphenir Yes [id number] 4mg Take 1 [facility] amine 4 mg 6-29 tablet by ity of tablet 00:00: mouth [place] 00 every 6 Medical (six) Branch hours as needed for Allergies or Runny nose. calcium/mag Yes [id number] 1{each} Take 1 [facility] nesium/zinc 6-29 Each by ity o f (CALCIUM-MA 00:00: mouth [place] GNESUIUM-ZI 00 daily. Medica l NC) Branch 333-133-5 mg Tab benzonatate 2021-0 Yes [id number] 100mg Take 1 [facility] 100 mg 6-29 capsule by ity of capsule 00:00: mouth 3 [place] 00 (three) Medical times Branch daily as needed for Cough. nirmatrelvi 2021-0 Yes [id number] 3{tbl} Take 3 [facility] r-ritonavir 6-29 tablets by it y of (PAXLOVID, 00:00: mouth [place] EUA,) 150 00 (two) Medical mg x 2- 100 times Branch mg tablet daily. chlorphenir 2021-0 Yes [id number] 4mg Take 1 [facility] amine 4 mg 6-29 tablet by ity of tablet 00:00: mouth [place] 00 every 6 Medical (six) Branch hours as needed for Allergies or Runny nose. calcium/mag 2021-0 Yes [id number] 1{each} Take 1 [facility] nesium/zinc 6-29 Each by ity o f (CALCIUM-MA 00:00: mouth [place] GNESUIUM-ZI 00 daily. Medica l ND) Branch 333-133-5 mg Tab benzonatate 2021-0 Yes [id number] 100mg Take 1 [facility] 100 mg 6-29 capsule by ity of capsule 00:00: mouth 3 [place] 00 (three) Medical times Branch daily as needed for Cough. nirmatrelvi 2021-0 Yes [id number] 3{tbl} Take 3 [facility] r-ritonavir 6-29 tablets by it y of (PAXLOVID, 00:00: mouth 2 [place] EUA,) 150 00 (two) Medical mg x 2- 100 times Branch mg tablet daily. chlorphenir 2-0 Yes [id number] 4mg Take 1 [facility] amine 4 mg 6-29 tablet by ity of tablet 00:00: mouth [place] 00 every 6 Medical (six) Branch hours as needed for Allergies or Runny nose. calcium/mag 2-0 Yes [id number] 1{each} Take 1 [facility] nesium/zinc 6-29 Each by ity o f (CALCIUM-MA 00:00: mouth [place] GNESUIUM-ZI 00 daily. Medica l NC) Branch 333-133-5 mg Tab benzonatate 2-0 Yes [id number] 100mg Take 1 [facility] 100 mg 6-29 capsule by ity of capsule 00:00: mouth 3 [place] 00 (three) Medical times Branch daily as needed for Cough. nirmatrelvi 2021-0 Yes [id number] 3{tbl} Take 3 [facility] r-ritonavir 6-29 tablets by it y of (PAXLOVID, 00:00: mouth 2 [place] EUA,) 150 00 (two) Medical mg x 2- 100 times Branch mg tablet daily. chlorphenir 2022-0 Yes [id number] 4mg Take 1 [facility] amine 4 mg 6-29 tablet by ity of tablet 00:00: mouth [place] 00 every 6 Medical (six) Branch hours as needed for Allergies or Runny nose. calcium/mag 2021-0 Yes [id number] 1{each} Take 1 [facility] nesium/zinc 6-29 Each by ity o f (CALCIUM-MA 00:00: mouth [place] GNESUIUM-ZI 00 daily. Medica l NC) Branch 333-133-5 mg Tab benzonatate 2021-0 Yes [id number] 100mg Take 1 [facility] 100 mg 6-29 capsule by ity of capsule 00:00: mouth 3 [place] 00 (three) Medical times Branch daily as needed for Cough. nirmatrelvi 2021-0 Yes [id number] 3{tbl} Take 3 [facility] r-ritonavir 6-29 tablets by it y of (PAXLOVID, 00:00: mouth 2 [place] EUA,) 150 00 (two) Medical mg x 2- 100 times Branch mg tablet daily. chlorphenir 2021-0 Yes [id number] 4mg Take 1 [facility] amine 4 mg 6-29 tablet by ity of tablet 00:00: mouth [place] 00 every 6 Medical (six) Branch hours as needed for Allergies or Runny nose. calcium/mag 2-0 Yes [id number] 1{each} Take 1 [facility] nesium/zinc 6-29 Each by ity o f (CALCIUM-MA 00:00: mouth [place] GNESUIUM-ZI 00 daily. Medica l NC) Branch 333-133-5 mg Tab benzonatate 202-0 Yes [id number] 100mg Take 1 [facility] 100 mg 6-29 capsule by ity of capsule 00:00: mouth 3 [place] 00 (three) Medical times Branch daily as needed for Cough. nirmatrelvi Yes [id number] 3{tbl} Take 3 [facility] r-ritonavir 6-29 tablets by it y of (PAXLOVID, 00:00: mouth 2 [place] EUA,) 150 00 (two) Medical mg x 2- 100 times Branch mg tablet daily. chlorphenir 2021-0 Yes [id number] 4mg Take 1 [facility] amine 4 mg 6-29 tablet by ity of tablet 00:00: mouth [place] 00 every 6 Medical (six) Branch hours as needed for Allergies or Runny nose. calcium/mag 2021-0 Yes [id number] 1{each} Take 1 [facility] nesium/zinc 6-29 Each by ity o f (CALCIUM-MA 00:00: mouth [place] GNESUIUM-ZI 00 daily. Medica l NC) Branch 333-133-5 mg Tab benzonatate 2021-0 Yes [id number] 100mg Take 1 [facility] 100 mg 6-29 capsule by ity of capsule 00:00: mouth 3 [place] 00 (three) Medical times Branch daily as needed for Cough. nirmatrelvi Yes [id number] 3{tbl} Take 3 [facility] r-ritonavir 6-29 tablets by it y of (PAXLOVID, 00:00: mouth 2 [place] EUA,) 150 00 (two) Medical mg x 2- 100 times Branch mg tablet daily. chlorphenir Yes [id number] 4mg Take 1 [facility] amine 4 mg 6-29 tablet by ity of tablet 00:00: mouth [place] 00 every 6 Medical (six) Branch hours as needed for Allergies or Runny nose. calcium/mag 2021-0 Yes [id number] 1{each} Take 1 [facility] nesium/zinc 6-29 Each by ity o f (CALCIUM-MA 00:00: mouth [place] GNESUIUM-ZI 00 daily. Medica l NC) Branch 333-133-5 mg Tab benzonatate 2021-0 Yes [id number] 100mg Take 1 [facility] 100 mg 6-29 capsule by ity of capsule 00:00: mouth 3 [place] 00 (three) Medical times Branch daily as needed for Cough. nirmatrelvi 2021-0 Yes [id number] 3{tbl} Take 3 [facility] r-ritonavir 6-29 tablets by it y of (PAXLOVID, 00:00: mouth 2 [place] EUA,) 150 00 (two) Medical mg x 2- 100 times Branch mg tablet daily. chlorphenir 2022-0 Yes [id number] 4mg Take 1 [facility] amine 4 mg 6-29 tablet by ity of tablet 00:00: mouth [place] 00 every 6 Medical (six) Branch hours as needed for Allergies or Runny nose. calcium/mag 2-0 Yes [id number] 1{each} Take 1 [facility] nesium/zinc 6-29 Each by ity o f (CALCIUM-MA 00:00: mouth [place] GNESUIUM-ZI 00 daily. Medica l NC) Branch 333-133-5 mg Tab benzonatate 2022-0 Yes [id number] 100mg Take 1 [facility] 100 mg 6-29 capsule by ity of capsule 00:00: mouth 3 [place] 00 (three) Medical times Branch daily as needed for Cough. nirmatrelvi 2021-0 Yes [id number] 3{tbl} Take 3 [facility] r-ritonavir 6-29 tablets by it y of (PAXLOVID, 00:00: mouth 2 [place] EUA,) 150 00 (two) Medical mg x 2- 100 times Branch mg tablet daily. chlorphenir 2-0 Yes [id number] 4mg Take 1 [facility] amine 4 mg 6-29 tablet by ity of tablet 00:00: mouth [place] 00 every 6 Medical (six) Branch hours as needed for Allergies or Runny nose. calcium/mag 2021-0 Yes [id number] 1{each} Take 1 [facility] nesium/zinc 6-29 Each by ity o f (CALCIUM-MA 00:00: mouth [place] GNESUIUM-ZI 00 daily. Medica l NC) Branch 333-133-5 mg Tab benzonatate 2022-0 Yes [id number] 100mg Take 1 [facility] 100 mg 6-29 capsule by ity of capsule 00:00: mouth 3 [place] 00 (three) Medical times Branch daily as needed for Cough. nirmatrelvi 2021-0 Yes [id number] 3{tbl} Take 3 [facility] r-ritonavir 6-29 tablets by it y of (PAXLOVID, 00:00: mouth 2 [place] EUA,) 150 00 (two) Medical mg x 2- 100 times Branch mg tablet daily. chlorphenir 2021-0 Yes [id number] 4mg Take 1 [facility] amine 4 mg 6-29 tablet by ity of tablet 00:00: mouth [place] 00 every 6 Medical (six) Branch hours as needed for Allergies or Runny nose. calcium/mag 2021-0 Yes [id number] 1{each} Take 1 [facility] nesium/zinc 6-29 Each by ity o f (CALCIUM-MA 00:00: mouth [place] GNESUIUM-ZI 00 daily. Medica l NC) Branch 333-133-5 mg Tab benzonatate 2021-0 Yes [id number] 100mg Take 1 [facility] 100 mg 6-29 capsule by ity of capsule 00:00: mouth 3 [place] 00 (three) Medical times Branch daily as needed for Cough. nirmatrelvi Yes [id number] 3{tbl} Take 3 [facility] r-ritonavir 6-29 tablets by it y of (PAXLOVID, 00:00: mouth 2 [place] EUA,) 150 00 (two) Medical mg x 2- 100 times Branch mg tablet daily. chlorphenir 2021- No [id number] 4mg Take 1 [facility] amine 4 mg 6-29 09-23 tablet by ity of tablet 00:00: 00:00 mouth [place] 00 :00 every 6 Medical (six) Branch hours as needed for Allergies or Runny nose. calcium/mag 0 2021- No [id number] 1{each} Take 1 [facility] nesium/zinc 6-29 09-23 Each by ity of (CALCIUM-MA 00:00: 00:00 mouth [place] GNESUIUM-ZI 00 :00 daily. Medica l NC) Branch 333-133-5 mg Tab benzonatate 2021-0 2021- No [id number] 100mg Take 1 [facility] 100 mg 6-29 09-23 capsule by ity of capsule 00:00: 00:00 mouth 3 [place] 00 :00 (three) Medical times Branch daily as needed for Cough. nirmatrelvi 0 2021- No [id number] 3{tbl} Take 3 [facility] r-ritonavir 6-29 09-23 tablets by i ty of (PAXLOVID, 00:00: 00:00 mouth 2 [place] EUA,) 150 00 :00 (two) Medical mg x 2- 100 times Branch mg tablet daily. chlorphenir 2021- No [id number] 4mg Take 1 [facility] amine 4 mg 11-08 tablet by ity of tablet 00:00: 00:00 mouth [place] 00 :00 every 6 Medical (six) Branch hours as needed for Allergies or Runny nose. calcium/mag 2021- No [id number] 1{each} Take 1 [facility] nesium/zinc 11-08 Each by ity of (CALCIUM-MA 00:00: 00:00 mouth [place] GNESUIUM-ZI 00 :00 daily. Medica l NC) Branch 333-133-5 mg Tab benzonatate 2021- No [id number] 100mg Take 1 [facility] 100 mg 11-08 capsule by ity of capsule 00:00: 00:00 mouth 3 [place] 00 :00 (three) Medical times Branch daily as needed for Cough. nirmatrelvi 2021- No [id number] 3{tbl} Take 3 [facility] r-ritonavir 11-08 tablets by i ty of (PAXLOVID, 00:00: 00:00 mouth 2 [place] EUA,) 150 00 :00 (two) Medical mg x 2- 100 times Branch mg tablet daily. vitamin 2021- No [id number] 1{tbl} Take 1 [facility] D3-folic 11-0830 tablet by ity o f acid 125 00:00: 04:59 mouth [place] mcg (5,000 00 :00 daily for Medi lula unit)-1 mg 30 days. Bran h Tab mupirocin 2 Yes [id number] Apply to Univers % ointment 6-15 area(s) 3 ity of 00:00: (three) [place] 00 times Medical daily. Branch mupirocin 2 Yes [id number] Apply to Univers % ointment 6-15 area(s) 3 ity of 00:00: (three) [place] 00 times Medical daily. Branch mupirocin 2 Yes [id number] Apply to Univers % ointment 6-15 area(s) 3 ity of 00:00: (three) [place] 00 times Medical daily. Branch mupirocin 2 2-0 Yes [id number] Apply to Univers % ointment 6-15 area(s) 3 ity of 00:00: (three) [place] 00 times Medical daily. Branch mupirocin 2 2-0 Yes [id number] Apply to Univers % ointment 6-15 area(s) 3 ity of 00:00: (three) [place] 00 times Medical daily. Branch mupirocin 2 2021-0 Yes [id number] Apply to Univers % ointment 6-15 area(s) 3 ity of 00:00: (three) [place] 00 times Medical daily. Branch mupirocin 2 2-0 Yes [id number] Apply to Univers % ointment 6-15 area(s) 3 ity of 00:00: (three) [place] 00 times Medical daily. Branch mupirocin 2 2021-0 Yes [id number] Apply to Univers % ointment 6-15 area(s) 3 ity of 00:00: (three) [place] 00 times Medical daily. Branch mupirocin 2 2021-0 Yes [id number] Apply to Univers % ointment 6-15 area(s) 3 ity of 00:00: (three) [place] 00 times Medical daily. Branch mupirocin 2 2021-0 Yes [id number] Apply to Univers % ointment 6-15 area(s) 3 ity of 00:00: (three) [place] 00 times Medical daily. Branch mupirocin 2 2-0 Yes [id number] Apply to Univers % ointment 6-15 area(s) 3 ity of 00:00: (three) [place] 00 times Medical daily. Branch mupirocin 2 2-0 Yes [id number] Apply to Univers % ointment 6-15 area(s) 3 ity of 00:00: (three) [place] 00 times Medical daily. Branch mupirocin 2 2-0 Yes [id number] Apply to [facility] % ointment 6-15 area(s) 3 ity of 00:00: (three) [place] 00 times Medical daily. Branch mupirocin 2 2-0 Yes [id number] Apply to [facility] % ointment 6-15 area(s) 3 ity of 00:00: (three) [place] 00 times Medical daily. Branch mupirocin 2 2-0 Yes [id number] Apply to [facility] % ointment 6-15 area(s) 3 ity of 00:00: (three) [place] 00 times Medical daily. Branch mupirocin 2 2-0 Yes [id number] Apply to [facility] % ointment 6-15 area(s) 3 ity of 00:00: (three) [place] 00 times Medical daily. Branch mupirocin 2 2-0 Yes [id number] Apply to [facility] % ointment 6-15 area(s) 3 ity of 00:00: (three) [place] 00 times Medical daily. Branch mupirocin 2 2-0 Yes [id number] Apply to [facility] % ointment 6-15 area(s) 3 ity of 00:00: (three) [place] 00 times Medical daily. Branch mupirocin 2 2021-0 Yes [id number] Apply to [facility] % ointment 6-15 area(s) 3 ity of 00:00: (three) [place] 00 times Medical daily. Branch mupirocin 2 2021-0 Yes [id number] Apply to [facility] % ointment 6-15 area(s) 3 ity of 00:00: (three) [place] 00 times Medical daily. Branch mupirocin 2 2021-0 Yes [id number] Apply to [facility] % ointment 6-15 area(s) 3 ity of 00:00: (three) [place] 00 times Medical daily. Branch mupirocin 2 2-0 Yes [id number] Apply to [facility] % ointment 6-15 area(s) 3 ity of 00:00: (three) [place] 00 times Medical daily. Branch mupirocin 2 2-0 Yes [id number] Apply to [facility] % ointment 6-15 area(s) 3 ity of 00:00: (three) [place] 00 times Medical daily. Branch mupirocin 2 2-0 Yes [id number] Apply to [facility] % ointment 6-15 area(s) 3 ity of 00:00: (three) [place] 00 times Medical daily. Branch mupirocin 2 2-0 Yes [id number] Apply to [facility] % ointment 6-15 area(s) 3 ity of 00:00: (three) [place] 00 times Medical daily. Branch mupirocin 2 2-0 Yes [id number] Apply to [facility] % ointment 6-15 area(s) 3 ity of 00:00: (three) [place] 00 times Medical daily. Branch mupirocin 2 2-0 Yes [id number] Apply to [facility] % ointment 6-15 area(s) 3 ity of 00:00: (three) [place] 00 times Medical daily. Branch mupirocin 2 2021-0 Yes [id number] Apply to [facility] % ointment 6-15 area(s) 3 ity of 00:00: (three) [place] 00 times Medical daily. Branch mupirocin 2 2021-0 Yes [id number] Apply to [facility] % ointment 6-15 area(s) 3 ity of 00:00: (three) [place] 00 times Medical daily. Branch mupirocin 2 2021-0 Yes [id number] Apply to [facility] % ointment 6-15 area(s) 3 ity of 00:00: (three) [place] 00 times Medical daily. Branch mupirocin 2 2021-0 Yes [id number] Apply to [facility] % ointment 6-15 area(s) 3 ity of 00:00: (three) [place] 00 times Medical daily. Branch mupirocin 2 2021-0 Yes [id number] Apply to [facility] % ointment 6-15 area(s) 3 ity of 00:00: (three) [place] 00 times Medical daily. Branch mupirocin 2 2021-0 Yes [id number] Apply to [facility] % ointment 6-15 area(s) 3 ity of 00:00: (three) [place] 00 times Medical daily. Branch mupirocin 2 2-0 Yes [id number] Apply to [facility] % ointment 6-15 area(s) 3 ity of 00:00: (three) [place] 00 times Medical daily. Branch mupirocin 2 2-0 Yes [id number] Apply to [facility] % ointment 6-15 area(s) 3 ity of 00:00: (three) [place] 00 times Medical daily. Branch mupirocin 2 2-0 Yes [id number] Apply to [facility] % ointment 6-15 area(s) 3 ity of 00:00: (three) [place] 00 times Medical daily. Branch mupirocin 2 2-0 Yes [id number] Apply to [facility] % ointment 6-15 area(s) 3 ity of 00:00: (three) [place] 00 times Medical daily. Branch mupirocin 2 2021-0 Yes [id number] Apply to [facility] % ointment 6-15 area(s) 3 ity of 00:00: (three) [place] 00 times Medical daily. Branch mupirocin 2 2021-0 Yes [id number] Apply to [facility] % ointment 6-15 area(s) 3 ity of 00:00: (three) [place] 00 times Medical daily. Branch mupirocin 2 2021-0 Yes [id number] Apply to [facility] % ointment 6-15 area(s) 3 ity of 00:00: (three) [place] 00 times Medical daily. Branch mupirocin 2 2021-0 Yes [id number] Apply to [facility] % ointment 6-15 area(s) 3 ity of 00:00: (three) [place] 00 times Medical daily. Branch mupirocin 2 2021-0 Yes [id number] Apply to [facility] % ointment 6-15 area(s) 3 ity of 00:00: (three) [place] 00 times Medical daily. Branch mupirocin 2 2021-0 Yes [id number] Apply to [facility] % ointment 6-15 area(s) 3 ity of 00:00: (three) [place] 00 times Medical daily. Branch mupirocin 2 2-0 Yes [id number] Apply to [facility] % ointment 6-15 area(s) 3 ity of 00:00: (three) [place] 00 times Medical daily. Branch mupirocin 2 2-0 Yes [id number] Apply to [facility] % ointment 6-15 area(s) 3 ity of 00:00: (three) [place] 00 times Medical daily. Branch mupirocin 2 2-0 Yes [id number] Apply to [facility] % ointment 6-15 area(s) 3 ity of 00:00: (three) [place] 00 times Medical daily. Branch mupirocin 2 2022-0 Yes [id number] Apply to [facility] % ointment 6-15 area(s) 3 ity of 00:00: (three) [place] 00 times Medical daily. Branch mupirocin 2 2-0 Yes [id number] Apply to [facility] % ointment 6-15 area(s) 3 ity of 00:00: (three) [place] 00 times Medical daily. Branch mupirocin 2 2-0 Yes [id number] Apply to [facility] % ointment 6-15 area(s) 3 ity of 00:00: (three) [place] 00 times Medical daily. Branch mupirocin 2 2-0 Yes [id number] Apply to [facility] % ointment 6-15 area(s) 3 ity of 00:00: (three) [place] 00 times Medical daily. Branch mupirocin 2 2-0 Yes [id number] Apply to [facility] % ointment 6-15 area(s) 3 ity of 00:00: (three) [place] 00 times Medical daily. Branch mupirocin 2 2021-0 Yes [id number] Apply to [facility] % ointment 6-15 area(s) 3 ity of 00:00: (three) [place] 00 times Medical daily. Branch mupirocin 2 2-0 Yes [id number] Apply to [facility] % ointment 6-15 area(s) 3 ity of 00:00: (three) [place] 00 times Medical daily. Branch mupirocin 2 2-0 Yes [id number] Apply to [facility] % ointment 6-15 area(s) 3 ity of 00:00: (three) [place] 00 times Medical daily. Branch mupirocin 2 2-0 Yes [id number] Apply to [facility] % ointment 6-15 area(s) 3 ity of 00:00: (three) [place] 00 times Medical daily. Branch mupirocin 2 2022-0 Yes [id number] Apply to [facility] % ointment 6-15 area(s) 3 ity of 00:00: (three) [place] 00 times Medical daily. Branch mupirocin 2 2-0 Yes [id number] Apply to [facility] % ointment 6-15 area(s) 3 ity of 00:00: (three) [place] 00 times Medical daily. Branch mupirocin 2 2-0 Yes [id number] Apply to [facility] % ointment 6-15 area(s) 3 ity of 00:00: (three) [place] 00 times Medical daily. Branch mupirocin 2 2-0 Yes [id number] Apply to [facility] % ointment 6-15 area(s) 3 ity of 00:00: (three) [place] 00 times Medical daily. Branch mupirocin 2 2-0 Yes [id number] Apply to [facility] % ointment 6-15 area(s) 3 ity of 00:00: (three) [place] 00 times Medical daily. Branch mupirocin 2 2-0 Yes [id number] Apply to [facility] % ointment 6-15 area(s) 3 ity of 00:00: (three) [place] 00 times Medical daily. Branch mupirocin 2 2021-0 Yes [id number] Apply to [facility] % ointment 6-15 area(s) 3 ity of 00:00: (three) [place] 00 times Medical daily. Branch mupirocin 2 2021-0 Yes [id number] Apply to [facility] % ointment 6-15 area(s) 3 ity of 00:00: (three) [place] 00 times Medical daily. Branch mupirocin 2 2-0 Yes [id number] Apply to [facility] % ointment 6-15 area(s) 3 ity of 00:00: (three) [place] 00 times Medical daily. Branch mupirocin 2 2-0 Yes [id number] Apply to [facility] % ointment 6-15 area(s) 3 ity of 00:00: (three) [place] 00 times Medical daily. Branch mupirocin 2 2-0 Yes [id number] Apply to [facility] % ointment 6-15 area(s) 3 ity of 00:00: (three) [place] 00 times Medical daily. Branch mupirocin 2 2-0 Yes [id number] Apply to [facility] % ointment 6-15 area(s) 3 ity of 00:00: (three) [place] 00 times Medical daily. Branch mupirocin 2 2-0 Yes [id number] Apply to [facility] % ointment 6-15 area(s) 3 ity of 00:00: (three) [place] 00 times Medical daily. Branch mupirocin 2 2022-0 Yes [id number] Apply to [facility] % ointment 6-15 area(s) 3 ity of 00:00: (three) [place] 00 times Medical daily. Branch mupirocin 2 2022-0 Yes [id number] Apply to [facility] % ointment 6-15 area(s) 3 ity of 00:00: (three) [place] times Medical daily. Branch mupirocin 2 2022-0 Yes [id number] Apply to [facility] % ointment 6-15 area(s) 3 ity of 00:00: (three) [place] 00 times Medical daily. Branch mupirocin 2 2022-0 Yes [id number] Apply to [facility] % ointment 6-15 area(s) 3 ity of 00:00: (three) [place] times Medical daily. Branch mupirocin 2 2022-0 Yes [id number] Apply to [facility] % ointment 6-15 area(s) 3 ity of 00:00: (three) [place] times Medical daily. Branch mupirocin 2 2-0 Yes [id number] Apply to [facility] % ointment 6-15 area(s) 3 ity of 00:00: (three) [place] times Medical daily. Branch mupirocin 2 2-0 Yes [id number] Apply to [facility] % ointment 6-15 area(s) 3 ity of 00:00: (three) [place] times Medical daily. Branch mupirocin 2 2022-0 Yes [id number] Apply to [facility] % ointment 6-15 area(s) 3 ity of 00:00: (three) [place] times Medical daily. Branch mupirocin 2 2022-0 Yes [id number] Apply to [facility] % ointment 6-15 area(s) 3 ity of 00:00: (three) [place] times Medical daily. Branch mupirocin 2 2022-0 Yes [id number] Apply to [facility] % ointment 6-15 area(s) 3 ity of 00:00: (three) [place] 00 times Medical daily. Branch mupirocin 2 2022-0 Yes [id number] Apply to [facility] % ointment 6-15 area(s) 3 ity of 00:00: (three) [place] 00 times Medical daily. Branch mupirocin 2 2021-0 Yes [id number] Apply to [facility] % ointment 6-15 area(s) 3 ity of 00:00: (three) [place] 00 times Medical daily. Branch mupirocin 2 2021-0 Yes [id number] Apply to [facility] % ointment 6-15 area(s) 3 ity of 00:00: (three) [place] 00 times Medical daily. Branch isosorbide 2021-0 Yes [id number] 60mg Take 1 [facility] n[facility] mononitrate 5-05 tablet by ity of 60 mg 24 hr 00:00: mouth [place] tablet 00 daily. Medical Branch isosorbide 2021-0 Yes [id number] 60mg Take 1 [facility] nivers mononitrate 5-05 tablet by ity of 60 mg 24 hr 00:00: mouth [place] tablet 00 daily. Medical [facility] isosorbide 2021-0 Yes [id number] 60mg Take 1 U nivers mononitrate 5-05 tablet by ity of 60 mg 24 hr 00:00: mouth [place] tablet 00 daily. Medical Branch isosorbide 2021-0 Yes [id number] 60mg Take 1 [facility] nivers mononitrate 5-05 tablet by ity of 60 mg 24 hr 00:00: mouth [place] tablet 00 daily. Medical [facility] isosorbide 2021-0 Yes [id number] 60mg Take 1 U nivers mononitrate 5-05 tablet by ity of 60 mg 24 hr 00:00: mouth [place] tablet 00 daily. Medical [facility] isosorbide 2021-0 Yes [id number] 60mg Take 1 U nivers mononitrate 5-05 tablet by ity of 60 mg 24 hr 00:00: mouth [place] tablet 00 daily. Medical Branch isosorbide 2-0 Yes [id number] 60mg Take 1 U nivers mononitrate 5-05 tablet by ity of 60 mg 24 hr 00:00: mouth [place] tablet 00 daily. Medical [facility] isosorbide 2-0 Yes [id number] 60mg Take 1 [facility] nivers mononitrate 5-05 tablet by ity of 60 mg 24 hr 00:00: mouth [place] tablet 00 daily. Medical [facility] isosorbide 2-0 Yes [id number] 60mg Take 1 U nivers mononitrate 5-05 tablet by ity of 60 mg 24 hr 00:00: mouth [place] tablet 00 daily. Medical Branch isosorbide 2-0 Yes [id number] 60mg Take 1 [facility] nivers mononitrate 5-05 tablet by ity of 60 mg 24 hr 00:00: mouth [place] tablet 00 daily. Medical Branch isosorbide 2-0 Yes [id number] 60mg Take 1 U nivers mononitrate 5-05 tablet by ity of 60 mg 24 hr 00:00: mouth [place] tablet 00 daily. Medical [facility] isosorbide 2-0 Yes [id number] 60mg Take 1 U nivers mononitrate 5-05 tablet by ity of 60 mg 24 hr 00:00: mouth [place] tablet 00 daily. Medical Branch isosorbide 2021-0 Yes [id number] 60mg Take 1 U nivers mononitrate 5-05 tablet by ity of 60 mg 24 hr 00:00: mouth [place] tablet 00 daily. Medical [facility] isosorbide 2021-0 Yes [id number] 60mg Take 1 [facility] nivers mononitrate 5-05 tablet by ity of 60 mg 24 hr 00:00: mouth [place] tablet 00 daily. Medical [facility] isosorbide 2021-0 Yes [id number] 60mg Take 1 U nivers mononitrate 5-05 tablet by ity of 60 mg 24 hr 00:00: mouth [place] tablet 00 daily. Medical [facility] isosorbide 2021-0 Yes [id number] 60mg Take 1 [facility] nivers mononitrate 5-05 tablet by ity of 60 mg 24 hr 00:00: mouth [place] tablet 00 daily. Medical [facility] isosorbide 2-0 Yes [id number] 60mg Take 1 [facility] nivers mononitrate 5-05 tablet by ity of 60 mg 24 hr 00:00: mouth [place] tablet 00 daily. Medical [facility] isosorbide 2-0 Yes [id number] 60mg Take 1 [facility] nivers mononitrate 5-05 tablet by ity of 60 mg 24 hr 00:00: mouth [place] tablet 00 daily. Medical [facility] isosorbide 2-0 Yes [id number] 60mg Take 1 [facility] nivers mononitrate 5-05 tablet by ity of 60 mg 24 hr 00:00: mouth [place] tablet 00 daily. Medical Branch isosorbide 2-0 Yes [id number] 60mg Take 1 [facility] nivers mononitrate 5-05 tablet by ity of 60 mg 24 hr 00:00: mouth [place] tablet 00 daily. Medical [facility] isosorbide 2021-0 Yes [id number] 60mg Take 1 U nivers mononitrate 5-05 tablet by ity of 60 mg 24 hr 00:00: mouth [place] tablet 00 daily. Medical [facility] isosorbide 2021-0 Yes [id number] 60mg Take 1 [facility] nivers mononitrate 5-05 tablet by ity of 60 mg 24 hr 00:00: mouth [place] tablet 00 daily. Medical [facility] isosorbide 2021-0 Yes [id number] 60mg Take 1 [facility] nivers mononitrate 5-05 tablet by ity of 60 mg 24 hr 00:00: mouth [place] tablet 00 daily. Medical [facility] isosorbide 2021-0 Yes [id number] 60mg Take 1 [facility] nivers mononitrate 5-05 tablet by ity of 60 mg 24 hr 00:00: mouth [place] tablet 00 daily. Medical Branch isosorbide 2021-0 Yes [id number] 60mg Take 1 [facility] nivers mononitrate 5-05 tablet by ity of 60 mg 24 hr 00:00: mouth [place] tablet 00 daily. Medical [facility] isosorbide 2021-0 Yes [id number] 60mg Take 1 [facility] nivers mononitrate 5-05 tablet by ity of 60 mg 24 hr 00:00: mouth [place] tablet 00 daily. Medical [facility] isosorbide 2021-0 Yes [id number] 60mg Take 1 [facility] nivers mononitrate 5-05 tablet by ity of 60 mg 24 hr 00:00: mouth [place] tablet 00 daily. Medical Branch isosorbide 2-0 Yes [id number] 60mg Take 1 [facility] nivers mononitrate 5-05 tablet by ity of 60 mg 24 hr 00:00: mouth [place] tablet 00 daily. Medical [facility] isosorbide 2021-0 Yes [id number] 60mg Take 1 [facility] nivers mononitrate 5-05 tablet by ity of 60 mg 24 hr 00:00: mouth [place] tablet 00 daily. Medical [facility] isosorbide 2-0 Yes [id number] 60mg Take 1 [facility] nivers mononitrate 5-05 tablet by ity of 60 mg 24 hr 00:00: mouth [place] tablet 00 daily. Medical [facility] isosorbide 2-0 Yes [id number] 60mg Take 1 [facility] nivers mononitrate 5-05 tablet by ity of 60 mg 24 hr 00:00: mouth [place] tablet 00 daily. Medical [facility] isosorbide 2021-0 Yes [id number] 60mg Take 1 [facility] nivers mononitrate 5-05 tablet by ity of 60 mg 24 hr 00:00: mouth [place] tablet 00 daily. Medical [facility] isosorbide 2021-0 Yes [id number] 60mg Take 1 [facility] nivers mononitrate 5-05 tablet by ity of 60 mg 24 hr 00:00: mouth [place] tablet 00 daily. Medical [facility] isosorbide 2021-0 Yes [id number] 60mg Take 1 [facility] nivers mononitrate 5-05 tablet by ity of 60 mg 24 hr 00:00: mouth [place] tablet 00 daily. Medical [facility] isosorbide 2021-0 Yes [id number] 60mg Take 1 [facility] nivers mononitrate 5-05 tablet by ity of 60 mg 24 hr 00:00: mouth [place] tablet 00 daily. Medical [facility] isosorbide 2021-0 Yes [id number] 60mg Take 1 [facility] nivers mononitrate 5-05 tablet by ity of 60 mg 24 hr 00:00: mouth [place] tablet 00 daily. Medical [facility] isosorbide 2021-0 Yes [id number] 60mg Take 1 [facility] nivers mononitrate 5-05 tablet by ity of 60 mg 24 hr 00:00: mouth [place] tablet 00 daily. Medical [facility] isosorbide 2021-0 Yes [id number] 60mg Take 1 [facility] nivers mononitrate 5-05 tablet by ity of 60 mg 24 hr 00:00: mouth [place] tablet 00 daily. Medical [facility] isosorbide 2-0 Yes [id number] 60mg Take 1 [facility] nivers mononitrate 5-05 tablet by ity of 60 mg 24 hr 00:00: mouth [place] tablet 00 daily. Medical [facility] isosorbide 2-0 Yes [id number] 60mg Take 1 [facility] nivers mononitrate 5-05 tablet by ity of 60 mg 24 hr 00:00: mouth [place] tablet 00 daily. Medical [facility] isosorbide 2-0 Yes [id number] 60mg Take 1 [facility] nivers mononitrate 5-05 tablet by ity of 60 mg 24 hr 00:00: mouth [place] tablet 00 daily. Medical [facility] isosorbide 2022-0 Yes [id number] 60mg Take 1 [facility] nivers mononitrate 5-05 tablet by ity of 60 mg 24 hr 00:00: mouth [place] tablet 00 daily. Medical [facility] isosorbide 2021-0 Yes [id number] 60mg Take 1 [facility] nivers mononitrate 5-05 tablet by ity of 60 mg 24 hr 00:00: mouth [place] tablet 00 daily. Medical [facility] isosorbide 2021-0 Yes [id number] 60mg Take 1 [facility] nivers mononitrate 5-05 tablet by ity of 60 mg 24 hr 00:00: mouth [place] tablet 00 daily. Medical [facility] isosorbide 2021-0 Yes [id number] 60mg Take 1 [facility] nivers mononitrate 5-05 tablet by ity of 60 mg 24 hr 00:00: mouth [place] tablet 00 daily. Medical [facility] isosorbide 0 Yes [id number] 60mg Take 1 [facility] nivers mononitrate 5-05 tablet by ity of 60 mg 24 hr 00:00: mouth [place] tablet 00 daily. Medical [facility] isosorbide 2021-0 Yes [id number] 60mg Take 1 [facility] nivers mononitrate 5-05 tablet by ity of 60 mg 24 hr 00:00: mouth [place] tablet 00 daily. Medical [facility] isosorbide 2021-0 Yes [id number] 60mg Take 1 [facility] nivers mononitrate 5-05 tablet by ity of 60 mg 24 hr 00:00: mouth [place] tablet 00 daily. Medical [facility] isosorbide 2021-0 Yes [id number] 60mg Take 1 [facility] nivers mononitrate 5-05 tablet by ity of 60 mg 24 hr 00:00: mouth [place] tablet 00 daily. Medical [facility] isosorbide 2021-0 Yes [id number] 60mg Take 1 [facility] nivers mononitrate 5-05 tablet by ity of 60 mg 24 hr 00:00: mouth [place] tablet 00 daily. Medical [facility] isosorbide 2021-0 Yes [id number] 60mg Take 1 [facility] nivers mononitrate 5-05 tablet by ity of 60 mg 24 hr 00:00: mouth [place] tablet 00 daily. Medical [facility] isosorbide 2021-0 Yes [id number] 60mg Take 1 [facility] nivers mononitrate 5-05 tablet by ity of 60 mg 24 hr 00:00: mouth [place] tablet 00 daily. Medical [facility] isosorbide 2021-0 Yes [id number] 60mg Take 1 [facility] nivers mononitrate 5-05 tablet by ity of 60 mg 24 hr 00:00: mouth [place] tablet 00 daily. Medical [facility] isosorbide 2021-0 Yes [id number] 60mg Take 1 [facility] nivers mononitrate 5-05 tablet by ity of 60 mg 24 hr 00:00: mouth [place] tablet 00 daily. Medical [facility] isosorbide 2021-0 Yes [id number] 60mg Take 1 [facility] nivers mononitrate 5-05 tablet by ity of 60 mg 24 hr 00:00: mouth [place] tablet 00 daily. Medical [facility] isosorbide 2021-0 Yes [id number] 60mg Take 1 [facility] nivers mononitrate 5-05 tablet by ity of 60 mg 24 hr 00:00: mouth [place] tablet 00 daily. Medical [facility] isosorbide 2021-0 Yes [id number] 60mg Take 1 [facility] nivers mononitrate 5-05 tablet by ity of 60 mg 24 hr 00:00: mouth [place] tablet 00 daily. Medical [facility] isosorbide 2021-0 Yes [id number] 60mg Take 1 [facility] nivers mononitrate 5-05 tablet by ity of 60 mg 24 hr 00:00: mouth [place] tablet 00 daily. Medical [facility] isosorbide 2021-0 Yes [id number] 60mg Take 1 [facility] nivers mononitrate 5-05 tablet by ity of 60 mg 24 hr 00:00: mouth [place] tablet 00 daily. Medical [facility] isosorbide 2021-0 Yes [id number] 60mg Take 1 [facility] nivers mononitrate 5-05 tablet by ity of 60 mg 24 hr 00:00: mouth [place] tablet 00 daily. Medical [facility] isosorbide 2021-0 Yes [id number] 60mg Take 1 [facility] nivers mononitrate 5-05 tablet by ity of 60 mg 24 hr 00:00: mouth [place] tablet 00 daily. Medical [facility] isosorbide 2021-0 Yes [id number] 60mg Take 1 [facility] nivers mononitrate 5-05 tablet by ity of 60 mg 24 hr 00:00: mouth [place] tablet 00 daily. Medical [facility] isosorbide 2021-0 Yes [id number] 60mg Take 1 [facility] nivers mononitrate 5-05 tablet by ity of 60 mg 24 hr 00:00: mouth [place] tablet 00 daily. Medical [facility] isosorbide Yes [id number] 60mg Take 1 [facility] nivers mononitrate 5-05 tablet by ity of 60 mg 24 hr 00:00: mouth [place] tablet 00 daily. Medical [facility] isosorbide Yes [id number] 60mg Take 1 [facility] nivers mononitrate 5-05 tablet by ity of 60 mg 24 hr 00:00: mouth [place] tablet 00 daily. Medical [facility] isosorbide 2022- No [id number] 60mg Take 1 [facility] mononitrate 5-05 07-19 tablet by it y of 60 mg 24 hr 00:00: 00:00 [place] tablet 00 :00 daily. [facility] isosorbide 2022- No [id number] 60mg Take 1 [facility] mononitrate 5-05 07-19 tablet by it y of 60 mg 24 hr 00:00: 00:00 [place] tablet 00 :00 daily. [facility] isosorbide 2022- No [id number] 60mg Take 1 [facility] mononitrate 5-05 07-19 tablet by it y of 60 mg 24 hr 00:00: 00:00 [place] tablet 00 :00 daily. [facility] isosorbide 2022- No [id number] 60mg Take 1 [facility] mononitrate 5-05 07-19 tablet by it y of 60 mg 24 hr 00:00: 00:00 [place] tablet 00 :00 daily. [facility] budesonide- Yes [id number] 2{puff} Inhale 2 [facility] formoteroL 4-26 Puffs 2 ity of (SYMBICORT) 00:00: (two) [place] 160-4.5 00 times Medical mcg/actuati daily. Branch on inhaler fluticasone Yes [id number] 1{spray Use 1 [facility] propionate 4-26 } [place] in ity o f 50 00:00: each [place] mcg/actuati 00 nostril 2 Med ical on nasal (two) Branch spray times daily. EPINEPHrine Yes ADMINISTER [facility] 0.3 mg/0.3 4-26 0.3 ML IN ity of mL 00:00: THE MUSCLE [place] injection 00 1 TIME NOW Medi lula FOR 1 DOSE Branch budesonide- Yes [id number] 2{puff} Inhale 2 [facility] formoteroL 4-26 Puffs 2 ity of (SYMBICORT) 00:00: (two) [place] 160-4.5 00 times Medical mcg/actuati daily. Branch on inhaler fluticasone 0 Yes [id number] 1{spray Use 1 [facility] propionate 4-26 } [place] in ity o f 50 00:00: each [place] mcg/actuati 00 nostril 2 Med ical on nasal (two) Branch spray times daily. EPINEPHrine Yes ADMINISTER [facility] 0.3 mg/0.3 4-26 0.3 ML IN ity of mL 00:00: THE MUSCLE [place] injection 00 1 TIME NOW Medi lula FOR 1 DOSE Branch budesonide- Yes [id number] 2{puff} Inhale 2 [facility] formoteroL 4-26 Puffs 2 ity of (SYMBICORT) 00:00: (two) [place] 160-4.5 00 times Medical mcg/actuati daily. Branch on inhaler fluticasone Yes [id number] 1{spray Use 1 [facility] propionate 4-26 } [place] in ity o f 50 00:00: each [place] mcg/actuati 00 nostril 2 Med ical on nasal (two) Branch spray times daily. EPINEPHrine Yes ADMINISTER [facility] 0.3 mg/0.3 4-26 0.3 ML IN ity of mL 00:00: THE MUSCLE [place] injection 00 1 TIME NOW Medi lula FOR 1 DOSE Branch budesonide- 0 Yes [id number] 2{puff} Inhale 2 [facility] formoteroL 4-26 Puffs 2 ity of (SYMBICORT) 00:00: (two) [place] 160-4.5 00 times Medical mcg/actuati daily. Branch on inhaler fluticasone 0 Yes [id number] 1{spray Use 1 [facility] propionate 4-26 } [place] in ity o f 50 00:00: each [place] mcg/actuati 00 nostril 2 Med ical on nasal (two) Branch spray times daily. EPINEPHrine Yes ADMINISTER [facility] 0.3 mg/0.3 4-26 0.3 ML IN ity of mL 00:00: THE MUSCLE [place] injection 00 1 TIME NOW Medi lula FOR 1 DOSE Branch budesonide- Yes [id number] 2{puff} Inhale 2 [facility] formoteroL 4-26 Puffs 2 ity of (SYMBICORT) 00:00: (two) [place] 160-4.5 00 times Medical mcg/actuati daily. Branch on inhaler fluticasone 2021-0 Yes [id number] 1{spray Use 1 [facility] propionate 4-26 } [place] in ity o f 50 00:00: each [place] mcg/actuati 00 nostril 2 Med ical on nasal (two) Branch spray times daily. EPINEPHrine Yes ADMINISTER [facility] 0.3 mg/0.3 4-26 0.3 ML IN ity of mL 00:00: THE MUSCLE [place] injection 00 1 TIME NOW Medi lula FOR 1 DOSE Branch budesonide- Yes [id number] 2{puff} Inhale 2 [facility] formoteroL 4-26 Puffs 2 ity of (SYMBICORT) 00:00: (two) [place] 160-4.5 00 times Medical mcg/actuati daily. Branch on inhaler fluticasone Yes [id number] 1{spray Use 1 [facility] propionate 4-26 } [place] in ity o f 50 00:00: each [place] mcg/actuati 00 nostril 2 Med ical on nasal (two) Branch spray times daily. EPINEPHrine Yes ADMINISTER [facility] 0.3 mg/0.3 4-26 0.3 ML IN ity of mL 00:00: THE MUSCLE [place] injection 00 1 TIME NOW Medi lula FOR 1 DOSE Branch budesonide- 0 Yes [id number] 2{puff} Inhale 2 [facility] formoteroL 4-26 Puffs 2 ity of (SYMBICORT) 00:00: (two) [place] 160-4.5 00 times Medical mcg/actuati daily. Branch on inhaler fluticasone 0 Yes [id number] 1{spray Use 1 [facility] propionate 4-26 } [place] in ity o f 50 00:00: each [place] mcg/actuati 00 nostril 2 Med ical on nasal (two) Branch spray times daily. EPINEPHrine Yes ADMINISTER [facility] 0.3 mg/0.3 4-26 0.3 ML IN ity of mL 00:00: THE MUSCLE [place] injection 00 1 TIME NOW Medi lula FOR 1 DOSE Branch budesonide- 2021-0 Yes [id number] 2{puff} Inhale 2 [facility] formoteroL 4-26 Puffs 2 ity of (SYMBICORT) 00:00: (two) [place] 160-4.5 00 times Medical mcg/actuati daily. Branch on inhaler fluticasone 2021-0 Yes [id number] 1{spray Use 1 [facility] propionate 4-26 } [place] in ity o f 50 00:00: each [place] mcg/actuati 00 nostril 2 Med ical on nasal (two) Branch spray times daily. EPINEPHrine Yes ADMINISTER [facility] 0.3 mg/0.3 4-26 0.3 ML IN ity of mL 00:00: THE MUSCLE [place] injection 00 1 TIME NOW Medi lula FOR 1 DOSE Branch budesonide- 0 Yes [id number] 2{puff} Inhale 2 [facility] formoteroL 4-26 Puffs 2 ity of (SYMBICORT) 00:00: (two) [place] 160-4.5 00 times Medical mcg/actuati daily. Branch on inhaler fluticasone 2021-0 Yes [id number] 1{spray Use 1 [facility] propionate 4-26 } [place] in ity o f 50 00:00: each [place] mcg/actuati 00 nostril 2 Med ical on nasal (two) Branch spray times daily. EPINEPHrine 2021-0 Yes ADMINISTER [facility] 0.3 mg/0.3 4-26 0.3 ML IN ity of mL 00:00: THE MUSCLE [place] injection 00 1 TIME NOW Medi lula FOR 1 DOSE Branch budesonide- 2021-0 Yes [id number] 2{puff} Inhale 2 [facility] formoteroL 4-26 Puffs 2 ity of (SYMBICORT) 00:00: (two) [place] 160-4.5 00 times Medical mcg/actuati daily. Branch on inhaler fluticasone 2021-0 Yes [id number] 1{spray Use 1 [facility] propionate 4-26 } [place] in ity o f 50 00:00: each [place] mcg/actuati 00 nostril 2 Med ical on nasal (two) Branch spray times daily. EPINEPHrine 2021-0 Yes ADMINISTER [facility] 0.3 mg/0.3 4-26 0.3 ML IN ity of mL 00:00: THE MUSCLE [place] injection 00 1 TIME NOW Medi lula FOR 1 DOSE Branch budesonide- 2021-0 Yes [id number] 2{puff} Inhale 2 [facility] formoteroL 4-26 Puffs 2 ity of (SYMBICORT) 00:00: (two) [place] 160-4.5 00 times Medical mcg/actuati daily. Branch on inhaler fluticasone 2021-0 Yes [id number] 1{spray Use 1 [facility] propionate 4-26 } [place] in ity o f 50 00:00: each [place] mcg/actuati 00 nostril 2 Med ical on nasal (two) Branch spray times daily. EPINEPHrine 2021- Yes ADMINISTER [facility] 0.3 mg/0.3 4-26 0.3 ML IN ity of mL 00:00: THE MUSCLE [place] injection 00 1 TIME NOW Medi lula FOR 1 DOSE Branch budesonide- 2021-0 Yes [id number] 2{puff} Inhale 2 [facility] formoteroL 4-26 Puffs 2 ity of (SYMBICORT) 00:00: (two) [place] 160-4.5 00 times Medical mcg/actuati daily. Branch on inhaler fluticasone 2021-0 Yes [id number] 1{spray Use 1 [facility] propionate 4-26 } [place] in ity o f 50 00:00: each [place] mcg/actuati 00 nostril 2 Med ical on nasal (two) Branch spray times daily. EPINEPHrine 2021-0 Yes ADMINISTER [facility] 0.3 mg/0.3 4-26 0.3 ML IN ity of mL 00:00: THE MUSCLE [place] injection 00 1 TIME NOW Medi lula FOR 1 DOSE Branch budesonide- 2021-0 Yes [id number] 2{puff} Inhale 2 [facility] formoteroL 4-26 Puffs 2 ity of (SYMBICORT) 00:00: (two) [place] 160-4.5 00 times Medical mcg/actuati daily. Branch on inhaler fluticasone 2021-0 Yes [id number] 1{spray Use 1 [facility] propionate 4-26 } [place] in ity o f 50 00:00: each [place] mcg/actuati 00 nostril 2 Med ical on nasal (two) Branch spray times daily. EPINEPHrine 2021-0 Yes ADMINISTER [facility] 0.3 mg/0.3 4-26 0.3 ML IN ity of mL 00:00: THE MUSCLE [place] injection 00 1 TIME NOW Medi lula FOR 1 DOSE Branch budesonide- 2021-0 Yes [id number] 2{puff} Inhale 2 [facility] formoteroL 4-26 Puffs 2 ity of (SYMBICORT) 00:00: (two) [place] 160-4.5 00 times Medical mcg/actuati daily. Branch on inhaler fluticasone 2021-0 Yes [id number] 1{spray Use 1 [facility] propionate 4-26 } [place] in ity o f 50 00:00: each [place] mcg/actuati 00 nostril 2 Med ical on nasal (two) Branch spray times daily. EPINEPHrine 2021- Yes ADMINISTER [facility] 0.3 mg/0.3 4-26 0.3 ML IN ity of mL 00:00: THE MUSCLE [place] injection 00 1 TIME NOW Medi lula FOR 1 DOSE Branch budesonide- Yes [id number] 2{puff} Inhale 2 [facility] formoteroL 4-26 Puffs 2 ity of (SYMBICORT) 00:00: (two) [place] 160-4.5 00 times Medical mcg/actuati daily. Branch on inhaler fluticasone 2021-0 Yes [id number] 1{spray Use 1 [facility] propionate 4-26 } [place] in ity o f 50 00:00: each [place] mcg/actuati 00 nostril 2 Med ical on nasal (two) Branch spray times daily. EPINEPHrine 2021-0 Yes ADMINISTER [facility] 0.3 mg/0.3 4-26 0.3 ML IN ity of mL 00:00: THE MUSCLE [place] injection 00 1 TIME NOW Medi lula FOR 1 DOSE Branch budesonide- 2021-0 Yes [id number] 2{puff} Inhale 2 [facility] formoteroL 4-26 Puffs 2 ity of (SYMBICORT) 00:00: (two) [place] 160-4.5 00 times Medical mcg/actuati daily. Branch on inhaler fluticasone 0 Yes [id number] 1{spray Use 1 [facility] propionate 4-26 } [place] in ity o f 50 00:00: each [place] mcg/actuati 00 nostril 2 Med ical on nasal (two) Branch spray times daily. EPINEPHrine 2022-0 Yes ADMINISTER [facility] 0.3 mg/0.3 4-26 0.3 ML IN ity of mL 00:00: THE MUSCLE [place] injection 00 1 TIME NOW Medi lula FOR 1 DOSE [facility] budesonide- 0 Yes [id number] 2{puff} Inhale 2 [facility] formoteroL 4-26 Puffs 2 ity of (SYMBICORT) 00:00: (two) [place] 160-4.5 00 times Medical mcg/actuati daily. Branch on inhaler fluticasone 2021- Yes [id number] 1{spray Use 1 [facility] propionate 4-26 } [place] in ity o f 50 00:00: each [place] mcg/actuati 00 nostril 2 Med ical on nasal (two) Branch spray times daily. EPINEPHrine Yes ADMINISTER [facility] 0.3 mg/0.3 4-26 0.3 ML IN ity of mL 00:00: THE MUSCLE [place] injection 00 1 TIME NOW Medi lula FOR 1 DOSE [facility] budesonide- Yes [id number] 2{puff} Inhale 2 [facility] formoteroL 4-26 Puffs 2 ity of (SYMBICORT) 00:00: (two) [place] 160-4.5 00 times Medical mcg/actuati daily. Branch on inhaler fluticasone Yes [id number] 1{spray Use 1 [facility] propionate 4-26 } [place] in ity o f 50 00:00: each [place] mcg/actuati 00 nostril 2 Med ical on nasal (two) Branch spray times daily. EPINEPHrine Yes ADMINISTER [facility] 0.3 mg/0.3 4-26 0.3 ML IN ity of mL 00:00: THE MUSCLE [place] injection 00 1 TIME NOW Medi lula FOR 1 DOSE [facility] budesonide- 0 Yes [id number] 2{puff} Inhale 2 [facility] formoteroL 4-26 Puffs 2 ity of (SYMBICORT) 00:00: (two) [place] 160-4.5 00 times Medical mcg/actuati daily. Branch on inhaler fluticasone 0 Yes [id number] 1{spray Use 1 [facility] propionate 4-26 } [place] in ity o f 50 00:00: each [place] mcg/actuati 00 nostril 2 Med ical on nasal (two) Branch spray times daily. EPINEPHrine Yes ADMINISTER [facility] 0.3 mg/0.3 4-26 0.3 ML IN ity of mL 00:00: THE MUSCLE [place] injection 00 1 TIME NOW Medi lula FOR 1 DOSE [facility] budesonide- 0 Yes [id number] 2{puff} Inhale 2 [facility] formoteroL 4-26 Puffs 2 ity of (SYMBICORT) 00:00: (two) [place] 160-4.5 00 times Medical mcg/actuati daily. Branch on inhaler fluticasone Yes [id number] 1{spray Use 1 [facility] propionate 4-26 } [place] in ity o f 50 00:00: each [place] mcg/actuati 00 nostril 2 Med ical on nasal (two) Branch spray times daily. EPINEPHrine Yes ADMINISTER [facility] 0.3 mg/0.3 4-26 0.3 ML IN ity of mL 00:00: THE MUSCLE [place] injection 00 1 TIME NOW Medi lula FOR 1 DOSE [facility] budesonide- Yes [id number] 2{puff} Inhale 2 [facility] formoteroL 4-26 Puffs 2 ity of (SYMBICORT) 00:00: (two) [place] 160-4.5 00 times Medical mcg/actuati daily. Branch on inhaler fluticasone Yes [id number] 1{spray Use 1 [facility] propionate 4-26 } [place] in ity o f 50 00:00: each [place] mcg/actuati 00 nostril 2 Med ical on nasal (two) Branch spray times daily. EPINEPHrine Yes ADMINISTER [facility] 0.3 mg/0.3 4-26 0.3 ML IN ity of mL 00:00: THE MUSCLE [place] injection 00 1 TIME NOW Medi lula FOR 1 DOSE [facility] budesonide- 0 Yes [id number] 2{puff} Inhale 2 [facility] formoteroL 4-26 Puffs 2 ity of (SYMBICORT) 00:00: (two) [place] 160-4.5 00 times Medical mcg/actuati daily. Branch on inhaler fluticasone 2021-0 Yes [id number] 1{spray Use 1 [facility] propionate 4-26 } [place] in ity o f 50 00:00: each [place] mcg/actuati 00 nostril 2 Med ical on nasal (two) Branch spray times daily. EPINEPHrine Yes ADMINISTER [facility] 0.3 mg/0.3 4-26 0.3 ML IN ity of mL 00:00: THE MUSCLE [place] injection 00 1 TIME NOW Medi lula FOR 1 DOSE [facility] budesonide- 0 Yes [id number] 2{puff} Inhale 2 [facility] formoteroL 4-26 Puffs 2 ity of (SYMBICORT) 00:00: (two) [place] 160-4.5 00 times Medical mcg/actuati daily. Branch on inhaler fluticasone 2021-0 Yes [id number] 1{spray Use 1 [facility] propionate 4-26 } [place] in ity o f 50 00:00: each [place] mcg/actuati 00 nostril 2 Med ical on nasal (two) Branch spray times daily. EPINEPHrine 2021-0 Yes ADMINISTER [facility] 0.3 mg/0.3 4-26 0.3 ML IN ity of mL 00:00: THE MUSCLE [place] injection 00 1 TIME NOW Medi lula FOR 1 DOSE Branch budesonide- 0 Yes [id number] 2{puff} Inhale 2 [facility] formoteroL 4-26 Puffs 2 ity of (SYMBICORT) 00:00: (two) [place] 160-4.5 00 times Medical mcg/actuati daily. Branch on inhaler fluticasone 0 Yes [id number] 1{spray Use 1 [facility] propionate 4-26 } [place] in ity o f 50 00:00: each [place] mcg/actuati 00 nostril 2 Med ical on nasal (two) Branch spray times daily. EPINEPHrine 2021-0 Yes ADMINISTER [facility] 0.3 mg/0.3 4-26 0.3 ML IN ity of mL 00:00: THE MUSCLE [place] injection 00 1 TIME NOW Medi lula FOR 1 DOSE Branch budesonide- 2021-0 Yes [id number] 2{puff} Inhale 2 [facility] formoteroL 4-26 Puffs 2 ity of (SYMBICORT) 00:00: (two) [place] 160-4.5 00 times Medical mcg/actuati daily. Branch on inhaler fluticasone 2021-0 Yes [id number] 1{spray Use 1 [facility] propionate 4-26 } [place] in ity o f 50 00:00: each [place] mcg/actuati 00 nostril 2 Med ical on nasal (two) Branch spray times daily. EPINEPHrine 2021-0 Yes ADMINISTER [facility] 0.3 mg/0.3 4-26 0.3 ML IN ity of mL 00:00: THE MUSCLE [place] injection 00 1 TIME NOW Medi lula FOR 1 DOSE Branch budesonide- 2021-0 Yes [id number] 2{puff} Inhale 2 [facility] formoteroL 4-26 Puffs 2 ity of (SYMBICORT) 00:00: (two) [place] 160-4.5 00 times Medical mcg/actuati daily. Branch on inhaler fluticasone 2021-0 Yes [id number] 1{spray Use 1 [facility] propionate 4-26 } [place] in ity o f 50 00:00: each [place] mcg/actuati 00 nostril 2 Med ical on nasal (two) Branch spray times daily. EPINEPHrine 2021-0 Yes ADMINISTER [facility] 0.3 mg/0.3 4-26 0.3 ML IN ity of mL 00:00: THE MUSCLE [place] injection 00 1 TIME NOW Medi lula FOR 1 DOSE Branch budesonide- 2021-0 Yes [id number] 2{puff} Inhale 2 [facility] formoteroL 4-26 Puffs 2 ity of (SYMBICORT) 00:00: (two) [place] 160-4.5 00 times Medical mcg/actuati daily. Branch on inhaler fluticasone 2021-0 Yes [id number] 1{spray Use 1 [facility] propionate 4-26 } [place] in ity o f 50 00:00: each [place] mcg/actuati 00 nostril 2 Med ical on nasal (two) Branch spray times daily. EPINEPHrine 2021-0 Yes ADMINISTER [facility] 0.3 mg/0.3 4-26 0.3 ML IN ity of mL 00:00: THE MUSCLE [place] injection 00 1 TIME NOW Medi lula FOR 1 DOSE Branch budesonide- 2021-0 Yes [id number] 2{puff} Inhale 2 [facility] formoteroL 4-26 Puffs 2 ity of (SYMBICORT) 00:00: (two) [place] 160-4.5 00 times Medical mcg/actuati daily. Branch on inhaler fluticasone 2021-0 Yes [id number] 1{spray Use 1 [facility] propionate 4-26 } [place] in ity o f 50 00:00: each [place] mcg/actuati 00 nostril 2 Med ical on nasal (two) Branch spray times daily. EPINEPHrine 2021-0 Yes ADMINISTER [facility] 0.3 mg/0.3 4-26 0.3 ML IN ity of mL 00:00: THE MUSCLE [place] injection 00 1 TIME NOW Medi lula FOR 1 DOSE Branch budesonide- 2021-0 Yes [id number] 2{puff} Inhale 2 [facility] formoteroL 4-26 Puffs 2 ity of (SYMBICORT) 00:00: (two) [place] 160-4.5 00 times Medical mcg/actuati daily. Branch on inhaler fluticasone 2021-0 Yes [id number] 1{spray Use 1 [facility] propionate 4-26 } [place] in ity o f 50 00:00: each [place] mcg/actuati 00 nostril 2 Med ical on nasal (two) Branch spray times daily. EPINEPHrine 2021-0 Yes ADMINISTER [facility] 0.3 mg/0.3 4-26 0.3 ML IN ity of mL 00:00: THE MUSCLE [place] injection 00 1 TIME NOW Medi lula FOR 1 DOSE Branch budesonide- 2021-0 Yes [id number] 2{puff} Inhale 2 [facility] formoteroL 4-26 Puffs 2 ity of (SYMBICORT) 00:00: (two) [place] 160-4.5 00 times Medical mcg/actuati daily. Branch on inhaler fluticasone 2021-0 Yes [id number] 1{spray Use 1 [facility] propionate 4-26 } [place] in ity o f 50 00:00: each [place] mcg/actuati 00 nostril 2 Med ical on nasal (two) Branch spray times daily. EPINEPHrine 2021-0 Yes ADMINISTER [facility] 0.3 mg/0.3 4-26 0.3 ML IN ity of mL 00:00: THE MUSCLE [place] injection 00 1 TIME NOW Medi lula FOR 1 DOSE Branch budesonide- 2021-0 Yes [id number] 2{puff} Inhale 2 [facility] formoteroL 4-26 Puffs 2 ity of (SYMBICORT) 00:00: (two) [place] 160-4.5 00 times Medical mcg/actuati daily. Branch on inhaler fluticasone 2021-0 Yes [id number] 1{spray Use 1 [facility] propionate 4-26 } [place] in ity o f 50 00:00: each [place] mcg/actuati 00 nostril 2 Med ical on nasal (two) Branch spray times daily. EPINEPHrine 2021-0 Yes ADMINISTER [facility] 0.3 mg/0.3 4-26 0.3 ML IN ity of mL 00:00: THE MUSCLE [place] injection 00 1 TIME NOW Medi lula FOR 1 DOSE Branch budesonide- 2021-0 Yes [id number] 2{puff} Inhale 2 [facility] formoteroL 4-26 Puffs 2 ity of (SYMBICORT) 00:00: (two) [place] 160-4.5 00 times Medical mcg/actuati daily. Branch on inhaler fluticasone 0 Yes [id number] 1{spray Use 1 [facility] propionate 4-26 } [place] in ity o f 50 00:00: each [place] mcg/actuati 00 nostril 2 Med ical on nasal (two) Branch spray times daily. EPINEPHrine 2021-0 Yes ADMINISTER [facility] 0.3 mg/0.3 4-26 0.3 ML IN ity of mL 00:00: THE MUSCLE [place] injection 00 1 TIME NOW Medi lula FOR 1 DOSE Branch budesonide- 0 Yes [id number] 2{puff} Inhale 2 [facility] formoteroL 4-26 Puffs 2 ity of (SYMBICORT) 00:00: (two) [place] 160-4.5 00 times Medical mcg/actuati daily. Branch on inhaler fluticasone 0 Yes [id number] 1{spray Use 1 [facility] propionate 4-26 } [place] in ity o f 50 00:00: each [place] mcg/actuati 00 nostril 2 Med ical on nasal (two) Branch spray times daily. EPINEPHrine 2021-0 Yes ADMINISTER [facility] 0.3 mg/0.3 4-26 0.3 ML IN ity of mL 00:00: THE MUSCLE [place] injection 00 1 TIME NOW Medi lula FOR 1 DOSE Branch budesonide- 0 Yes [id number] 2{puff} Inhale 2 [facility] formoteroL 4-26 Puffs 2 ity of (SYMBICORT) 00:00: (two) [place] 160-4.5 00 times Medical mcg/actuati daily. Branch on inhaler fluticasone Yes [id number] 1{spray Use 1 [facility] propionate 4-26 } [place] in ity o f 50 00:00: each [place] mcg/actuati 00 nostril 2 Med ical on nasal (two) Branch spray times daily. EPINEPHrine 2021-0 Yes ADMINISTER [facility] 0.3 mg/0.3 4-26 0.3 ML IN ity of mL 00:00: THE MUSCLE [place] injection 00 1 TIME NOW Medi lula FOR 1 DOSE Branch budesonide- 0 Yes [id number] 2{puff} Inhale 2 [facility] formoteroL 4-26 Puffs 2 ity of (SYMBICORT) 00:00: (two) [place] 160-4.5 00 times Medical mcg/actuati daily. Branch on inhaler fluticasone Yes [id number] 1{spray Use 1 [facility] propionate 4-26 } [place] in ity o f 50 00:00: each [place] mcg/actuati 00 nostril 2 Med ical on nasal (two) Branch spray times daily. EPINEPHrine 2021-0 Yes ADMINISTER [facility] 0.3 mg/0.3 4-26 0.3 ML IN ity of mL 00:00: THE MUSCLE [place] injection 00 1 TIME NOW Medi lula FOR 1 DOSE Branch budesonide- 0 Yes [id number] 2{puff} Inhale 2 [facility] formoteroL 4-26 Puffs 2 ity of (SYMBICORT) 00:00: (two) [place] 160-4.5 00 times Medical mcg/actuati daily. Branch on inhaler fluticasone 2021-0 Yes [id number] 1{spray Use 1 [facility] propionate 4-26 } [place] in ity o f 50 00:00: each [place] mcg/actuati 00 nostril 2 Med ical on nasal (two) Branch spray times daily. EPINEPHrine 2021-0 Yes ADMINISTER [facility] 0.3 mg/0.3 4-26 0.3 ML IN ity of mL 00:00: THE MUSCLE [place] injection 00 1 TIME NOW Medi lula FOR 1 DOSE Branch budesonide- 2021-0 Yes [id number] 2{puff} Inhale 2 [facility] formoteroL 4-26 Puffs 2 ity of (SYMBICORT) 00:00: (two) [place] 160-4.5 00 times Medical mcg/actuati daily. Branch on inhaler fluticasone 0 Yes [id number] 1{spray Use 1 [facility] propionate 4-26 } [place] in ity o f 50 00:00: each [place] mcg/actuati 00 nostril 2 Med ical on nasal (two) Branch spray times daily. EPINEPHrine 2021-0 Yes ADMINISTER [facility] 0.3 mg/0.3 4-26 0.3 ML IN ity of mL 00:00: THE MUSCLE [place] injection 00 1 TIME NOW Medi lula FOR 1 DOSE Branch budesonide- 0 Yes [id number] 2{puff} Inhale 2 [facility] formoteroL 4-26 Puffs 2 ity of (SYMBICORT) 00:00: (two) [place] 160-4.5 00 times Medical mcg/actuati daily. Branch on inhaler fluticasone 0 Yes [id number] 1{spray Use 1 [facility] propionate 4-26 } [place] in ity o f 50 00:00: each [place] mcg/actuati 00 nostril 2 Med ical on nasal (two) Branch spray times daily. EPINEPHrine Yes ADMINISTER [facility] 0.3 mg/0.3 4-26 0.3 ML IN ity of mL 00:00: THE MUSCLE [place] injection 00 1 TIME NOW Medi lula FOR 1 DOSE Branch budesonide- 0 Yes [id number] 2{puff} Inhale 2 [facility] formoteroL 4-26 Puffs 2 ity of (SYMBICORT) 00:00: (two) [place] 160-4.5 00 times Medical mcg/actuati daily. Branch on inhaler fluticasone 0 Yes [id number] 1{spray Use 1 [facility] propionate 4-26 } [place] in ity o f 50 00:00: each [place] mcg/actuati 00 nostril 2 Med ical on nasal (two) Branch spray times daily. EPINEPHrine 2021-0 Yes ADMINISTER [facility] 0.3 mg/0.3 4-26 0.3 ML IN ity of mL 00:00: THE MUSCLE [place] injection 00 1 TIME NOW Medi lula FOR 1 DOSE Branch budesonide- 2021-0 Yes [id number] 2{puff} Inhale 2 [facility] formoteroL 4-26 Puffs 2 ity of (SYMBICORT) 00:00: (two) [place] 160-4.5 00 times Medical mcg/actuati daily. Branch on inhaler fluticasone 2021-0 Yes [id number] 1{spray Use 1 [facility] propionate 4-26 } [place] in ity o f 50 00:00: each [place] mcg/actuati 00 nostril 2 Med ical on nasal (two) Branch spray times daily. EPINEPHrine 2021-0 Yes ADMINISTER [facility] 0.3 mg/0.3 4-26 0.3 ML IN ity of mL 00:00: THE MUSCLE [place] injection 00 1 TIME NOW Medi lula FOR 1 DOSE Branch budesonide- 2021-0 Yes [id number] 2{puff} Inhale 2 [facility] formoteroL 4-26 Puffs 2 ity of (SYMBICORT) 00:00: (two) [place] 160-4.5 00 times Medical mcg/actuati daily. Branch on inhaler fluticasone 2021-0 Yes [id number] 1{spray Use 1 [facility] propionate 4-26 } [place] in ity o f 50 00:00: each [place] mcg/actuati 00 nostril 2 Med ical on nasal (two) Branch spray times daily. EPINEPHrine 2021-0 Yes ADMINISTER [facility] 0.3 mg/0.3 4-26 0.3 ML IN ity of mL 00:00: THE MUSCLE [place] injection 00 1 TIME NOW Medi lula FOR 1 DOSE Branch budesonide- 2021-0 Yes [id number] 2{puff} Inhale 2 [facility] formoteroL 4-26 Puffs 2 ity of (SYMBICORT) 00:00: (two) [place] 160-4.5 00 times Medical mcg/actuati daily. Branch on inhaler fluticasone 2021-0 Yes [id number] 1{spray Use 1 [facility] propionate 4-26 } [place] in ity o f 50 00:00: each [place] mcg/actuati 00 nostril 2 Med ical on nasal (two) Branch spray times daily. EPINEPHrine 2021-0 Yes ADMINISTER [facility] 0.3 mg/0.3 4-26 0.3 ML IN ity of mL 00:00: THE MUSCLE [place] injection 00 1 TIME NOW Medi lula FOR 1 DOSE Branch budesonide- 2021-0 Yes [id number] 2{puff} Inhale 2 [facility] formoteroL 4-26 Puffs 2 ity of (SYMBICORT) 00:00: (two) [place] 160-4.5 00 times Medical mcg/actuati daily. Branch on inhaler fluticasone 2021-0 Yes [id number] 1{spray Use 1 [facility] propionate 4-26 } [place] in ity o f 50 00:00: each [place] mcg/actuati 00 nostril 2 Med ical on nasal (two) Branch spray times daily. EPINEPHrine 2021-0 Yes ADMINISTER [facility] 0.3 mg/0.3 4-26 0.3 ML IN ity of mL 00:00: THE MUSCLE [place] injection 00 1 TIME NOW Medi lula FOR 1 DOSE Branch budesonide- 2021-0 Yes [id number] 2{puff} Inhale 2 [facility] formoteroL 4-26 Puffs 2 ity of (SYMBICORT) 00:00: (two) [place] 160-4.5 00 times Medical mcg/actuati daily. Branch on inhaler fluticasone 2021-0 Yes [id number] 1{spray Use 1 [facility] propionate 4-26 } [place] in ity o f 50 00:00: each [place] mcg/actuati 00 nostril 2 Med ical on nasal (two) Branch spray times daily. EPINEPHrine Yes ADMINISTER [facility] 0.3 mg/0.3 4-26 0.3 ML IN ity of mL 00:00: THE MUSCLE [place] injection 00 1 TIME NOW Medi lula FOR 1 DOSE Branch budesonide- 0 Yes [id number] 2{puff} Inhale 2 [facility] formoteroL 4-26 Puffs 2 ity of (SYMBICORT) 00:00: (two) [place] 160-4.5 00 times Medical mcg/actuati daily. Branch on inhaler fluticasone 2021-0 Yes [id number] 1{spray Use 1 [facility] propionate 4-26 } [place] in ity o f 50 00:00: each [place] mcg/actuati 00 nostril 2 Med ical on nasal (two) Branch spray times daily. EPINEPHrine 2021-0 Yes ADMINISTER [facility] 0.3 mg/0.3 4-26 0.3 ML IN ity of mL 00:00: THE MUSCLE [place] injection 00 1 TIME NOW Medi lula FOR 1 DOSE Branch budesonide- 2021-0 Yes [id number] 2{puff} Inhale 2 [facility] formoteroL 4-26 Puffs 2 ity of (SYMBICORT) 00:00: (two) [place] 160-4.5 00 times Medical mcg/actuati daily. Branch on inhaler EPINEPHrine 2021-0 Yes ADMINISTER [facility] 0.3 mg/0.3 4-26 0.3 ML IN ity of mL 00:00: THE MUSCLE [place] injection 00 1 TIME NOW Medi lula FOR 1 DOSE Branch budesonide- 2021-0 Yes [id number] 2{puff} Inhale 2 [facility] formoteroL 4-26 Puffs 2 ity of (SYMBICORT) 00:00: (two) [place] 160-4.5 00 times Medical mcg/actuati daily. Branch on inhaler EPINEPHrine 2021- Yes ADMINISTER [facility] 0.3 mg/0.3 4-26 0.3 ML IN ity of mL 00:00: THE MUSCLE [place] injection 00 1 TIME NOW Medi lula FOR 1 DOSE Branch budesonide- 2021-0 Yes [id number] 2{puff} Inhale 2 [facility] formoteroL 4-26 Puffs 2 ity of (SYMBICORT) 00:00: (two) [place] 160-4.5 00 times Medical mcg/actuati daily. Branch on inhaler EPINEPHrine 2021-0 Yes ADMINISTER [facility] 0.3 mg/0.3 4-26 0.3 ML IN ity of mL 00:00: THE MUSCLE [place] injection 00 1 TIME NOW Medi lula FOR 1 DOSE Branch budesonide- 2021-0 Yes [id number] 2{puff} Inhale 2 [facility] formoteroL 4-26 Puffs 2 ity of (SYMBICORT) 00:00: (two) [place] 160-4.5 00 times Medical mcg/actuati daily. Branch on inhaler EPINEPHrine 2021-0 Yes ADMINISTER [facility] 0.3 mg/0.3 4-26 0.3 ML IN ity of mL 00:00: THE MUSCLE [place] injection 00 1 TIME NOW Medi lula FOR 1 DOSE Branch budesonide- 2021-0 Yes [id number] 2{puff} Inhale 2 [facility] formoteroL 4-26 Puffs 2 ity of (SYMBICORT) 00:00: (two) [place] 160-4.5 00 times Medical mcg/actuati daily. Branch on inhaler EPINEPHrine 2021-0 Yes ADMINISTER [facility] 0.3 mg/0.3 4-26 0.3 ML IN ity of mL 00:00: THE MUSCLE [place] injection 00 1 TIME NOW Medi lula FOR 1 DOSE Branch budesonide- 2021-0 Yes [id number] 2{puff} Inhale 2 [facility] formoteroL 4-26 Puffs 2 ity of (SYMBICORT) 00:00: (two) [place] 160-4.5 00 times Medical mcg/actuati daily. Branch on inhaler EPINEPHrine Yes ADMINISTER [facility] 0.3 mg/0.3 4-26 0.3 ML IN ity of mL 00:00: THE MUSCLE [place] injection 00 1 TIME NOW Medi lula FOR 1 DOSE Branch budesonide- 2021-0 Yes [id number] 2{puff} Inhale 2 [facility] formoteroL 4-26 Puffs 2 ity of (SYMBICORT) 00:00: (two) [place] 160-4.5 00 times Medical mcg/actuati daily. Branch on inhaler EPINEPHrine Yes ADMINISTER [facility] 0.3 mg/0.3 4-26 0.3 ML IN ity of mL 00:00: THE MUSCLE [place] injection 00 1 TIME NOW Medi lula FOR 1 DOSE Branch budesonide- 2021-0 Yes [id number] 2{puff} Inhale 2 [facility] formoteroL 4-26 Puffs 2 ity of (SYMBICORT) 00:00: (two) [place] 160-4.5 00 times Medical mcg/actuati daily. Branch on inhaler EPINEPHrine Yes ADMINISTER [facility] 0.3 mg/0.3 4-26 0.3 ML IN ity of mL 00:00: THE MUSCLE [place] injection 00 1 TIME NOW Medi lula FOR 1 DOSE Branch budesonide- 2021-0 Yes [id number] 2{puff} Inhale 2 [facility] formoteroL 4-26 Puffs 2 ity of (SYMBICORT) 00:00: (two) [place] 160-4.5 00 times Medical mcg/actuati daily. Branch on inhaler EPINEPHrine Yes ADMINISTER [facility] 0.3 mg/0.3 4-26 0.3 ML IN ity of mL 00:00: THE MUSCLE [place] injection 00 1 TIME NOW Medi lula FOR 1 DOSE Branch budesonide- 2021-0 Yes [id number] 2{puff} Inhale 2 [facility] formoteroL 4-26 Puffs 2 ity of (SYMBICORT) 00:00: (two) [place] 160-4.5 00 times Medical mcg/actuati daily. Branch on inhaler EPINEPHrine 2021-0 Yes ADMINISTER [facility] 0.3 mg/0.3 4-26 0.3 ML IN ity of mL 00:00: THE MUSCLE [place] injection 00 1 TIME NOW Medi lula FOR 1 DOSE Branch budesonide- 2021-0 Yes [id number] 2{puff} Inhale 2 [facility] formoteroL 4-26 Puffs 2 ity of (SYMBICORT) 00:00: (two) [place] 160-4.5 00 times Medical mcg/actuati daily. Branch on inhaler EPINEPHrine 2021- Yes ADMINISTER [facility] 0.3 mg/0.3 4-26 0.3 ML IN ity of mL 00:00: THE MUSCLE [place] injection 00 1 TIME NOW Medi lula FOR 1 DOSE Branch budesonide- 2021-0 Yes [id number] 2{puff} Inhale 2 [facility] formoteroL 4-26 Puffs 2 ity of (SYMBICORT) 00:00: (two) [place] 160-4.5 00 times Medical mcg/actuati daily. Branch on inhaler EPINEPHrine 2021-0 Yes ADMINISTER [facility] 0.3 mg/0.3 4-26 0.3 ML IN ity of mL 00:00: THE MUSCLE [place] injection 00 1 TIME NOW Medi lula FOR 1 DOSE Branch budesonide- 2021-0 Yes [id number] 2{puff} Inhale 2 [facility] formoteroL 4-26 Puffs 2 ity of (SYMBICORT) 00:00: (two) [place] 160-4.5 00 times Medical mcg/actuati daily. Branch on inhaler EPINEPHrine 2021-0 Yes ADMINISTER [facility] 0.3 mg/0.3 4-26 0.3 ML IN ity of mL 00:00: THE MUSCLE [place] injection 00 1 TIME NOW Medi lula FOR 1 DOSE Branch budesonide- 2021-0 Yes [id number] 2{puff} Inhale 2 [facility] formoteroL 4-26 Puffs 2 ity of (SYMBICORT) 00:00: (two) [place] 160-4.5 00 times Medical mcg/actuati daily. Branch on inhaler EPINEPHrine 2021-0 Yes ADMINISTER [facility] 0.3 mg/0.3 4-26 0.3 ML IN ity of mL 00:00: THE MUSCLE [place] injection 00 1 TIME NOW Medi lula FOR 1 DOSE Branch budesonide- 2021-0 Yes [id number] 2{puff} Inhale 2 [facility] formoteroL 4-26 Puffs 2 ity of (SYMBICORT) 00:00: (two) [place] 160-4.5 00 times Medical mcg/actuati daily. Branch on inhaler EPINEPHrine 2021- Yes ADMINISTER [facility] 0.3 mg/0.3 4-26 0.3 ML IN ity of mL 00:00: THE MUSCLE [place] injection 00 1 TIME NOW Medi lula FOR 1 DOSE Branch budesonide- 2021-0 Yes [id number] 2{puff} Inhale 2 [facility] formoteroL 4-26 Puffs 2 ity of (SYMBICORT) 00:00: (two) [place] 160-4.5 00 times Medical mcg/actuati daily. Branch on inhaler EPINEPHrine Yes ADMINISTER [facility] 0.3 mg/0.3 4-26 0.3 ML IN ity of mL 00:00: THE MUSCLE [place] injection 00 1 TIME NOW Medi lula FOR 1 DOSE Branch budesonide- 2021-0 Yes [id number] 2{puff} Inhale 2 [facility] formoteroL 4-26 Puffs 2 ity of (SYMBICORT) 00:00: (two) [place] 160-4.5 00 times Medical mcg/actuati daily. Branch on inhaler EPINEPHrine Yes ADMINISTER [facility] 0.3 mg/0.3 4-26 0.3 ML IN ity of mL 00:00: THE MUSCLE [place] injection 00 1 TIME NOW Medi lula FOR 1 DOSE Branch budesonide- 2021-0 Yes [id number] 2{puff} Inhale 2 [facility] formoteroL 4-26 Puffs 2 ity of (SYMBICORT) 00:00: (two) [place] 160-4.5 00 times Medical mcg/actuati daily. Branch on inhaler EPINEPHrine 2021-0 Yes ADMINISTER [facility] 0.3 mg/0.3 4-26 0.3 ML IN ity of mL 00:00: THE MUSCLE [place] injection 00 1 TIME NOW Medi lula FOR 1 DOSE Branch budesonide- 2021-0 Yes [id number] 2{puff} Inhale 2 [facility] formoteroL 4-26 Puffs 2 ity of (SYMBICORT) 00:00: (two) [place] 160-4.5 00 times Medical mcg/actuati daily. Branch on inhaler EPINEPHrine Yes ADMINISTER [facility] 0.3 mg/0.3 4-26 0.3 ML IN ity of mL 00:00: THE MUSCLE [place] injection 00 1 TIME NOW Medi lula FOR 1 DOSE Branch budesonide- Yes [id number] 2{puff} Inhale 2 [facility] formoteroL 4-26 Puffs 2 ity of (SYMBICORT) 00:00: (two) [place] 160-4.5 00 times Medical mcg/actuati daily. Branch on inhaler EPINEPHrine Yes ADMINISTER [facility] 0.3 mg/0.3 4-26 0.3 ML IN ity of mL 00:00: THE MUSCLE [place] injection 00 1 TIME NOW Medi lula FOR 1 DOSE Branch budesonide- Yes [id number] 2{puff} Inhale 2 [facility] formoteroL 4-26 Puffs 2 ity of (SYMBICORT) 00:00: (two) [place] 160-4.5 00 times Medical mcg/actuati daily. Branch on inhaler budesonide- Yes [id number] 2{puff} Inhale 2 [facility] formoteroL 4-26 Puffs 2 ity of (SYMBICORT) 00:00: (two) [place] 160-4.5 00 times Medical mcg/actuati daily. Branch on inhaler budesonide- Yes [id number] 2{puff} Inhale 2 [facility] formoteroL 4-26 Puffs 2 ity of (SYMBICORT) 00:00: (two) [place] 160-4.5 00 times Medical mcg/actuati daily. Branch on inhaler budesonide- Yes [id number] 2{puff} Inhale 2 [facility] formoteroL 4-26 Puffs 2 ity of (SYMBICORT) 00:00: (two) [place] 160-4.5 00 times Medical mcg/actuati daily. Branch on inhaler budesonide- Yes [id number] 2{puff} Inhale 2 [facility] formoteroL 4-26 Puffs 2 ity of (SYMBICORT) 00:00: (two) [place] 160-4.5 00 times Medical mcg/actuati daily. Branch on inhaler budesonide- Yes [id number] 2{puff} Inhale 2 [facility] formoteroL 4-26 Puffs 2 ity of (SYMBICORT) 00:00: (two) [place] 160-4.5 00 times Medical mcg/actuati daily. Branch on inhaler budesonide- Yes [id number] 2{puff} Inhale 2 [facility] formoteroL 4-26 Puffs 2 ity of (SYMBICORT) 00:00: (two) [place] 160-4.5 00 times Medical mcg/actuati daily. Branch on inhaler budesonide- Yes [id number] 2{puff} Inhale 2 [facility] formoteroL 4-26 Puffs 2 ity of (SYMBICORT) 00:00: (two) [place] 160-4.5 00 times Medical mcg/actuati daily. Branch on inhaler budesonide- Yes [id number] 2{puff} Inhale 2 [facility] formoteroL 4-26 Puffs 2 ity of (SYMBICORT) 00:00: (two) [place] 160-4.5 00 times Medical mcg/actuati daily. Branch on inhaler budesonide- Yes [id number] 2{puff} Inhale 2 [facility] formoteroL 4-26 Puffs 2 ity of (SYMBICORT) 00:00: (two) [place] 160-4.5 00 times Medical mcg/actuati daily. Branch on inhaler budesonide- Yes [id number] 2{puff} Inhale 2 [facility] formoteroL 4-26 Puffs 2 ity of (SYMBICORT) 00:00: (two) [place] 160-4.5 00 times Medical mcg/actuati daily. Branch on inhaler budesonide- Yes [id number] 2{puff} Inhale 2 [facility] formoteroL 4-26 Puffs 2 ity of (SYMBICORT) 00:00: (two) [place] 160-4.5 00 times Medical mcg/actuati daily. Branch on inhaler budesonide- Yes [id number] 2{puff} Inhale 2 [facility] formoteroL 4-26 Puffs 2 ity of (SYMBICORT) 00:00: (two) [place] 160-4.5 00 times Medical mcg/actuati daily. Branch on inhaler budesonide- Yes [id number] 2{puff} Inhale 2 [facility] formoteroL 4-26 Puffs 2 ity of (SYMBICORT) 00:00: (two) [place] 160-4.5 00 times Medical mcg/actuati daily. Branch on inhaler budesonide- Yes [id number] 2{puff} Inhale 2 [facility] formoteroL 4-26 Puffs 2 ity of (SYMBICORT) 00:00: (two) [place] 160-4.5 00 times Medical mcg/actuati daily. Branch on inhaler budesonide- Yes [id number] 2{puff} Inhale 2 [facility] formoteroL 4-26 Puffs 2 ity of (SYMBICORT) 00:00: (two) [place] 160-4.5 00 times Medical mcg/actuati daily. Branch on inhaler fluticasone 2023- No [id number] 1{spray Use 1 [facility] propionate 4-26 04-21 } [place] in ity of 50 00:00: 00:00 each [...] PTWK 00 EVERY Medical WEEK. Branch buprenorphi 2022- No APPLY 1 [place] ne 20 4-19 07-19 PATCH ON ity of mcg/hour 00:00: 00:[place] PT[facility] 00 :00 EVERY Medical WEEK. Branch buprenorphi 2022- No APPLY 1 [place] 20 4-19 07-19 PATCH ON ity of mcg/hour 00:00: 00:00 [place] PT[facility] 00 :00 EVERY Medical WEEK. Branch buprenorphi 2022- No APPLY 1 [place] 20 4-19 07-19 PATCH ON ity of mcg/hour 00:00: 00:00 [place] PTWK 00 :00 EVERY Medical WEEK. Branch buprenorphi 2022- No APPLY 1 [place] 20 4-19 07-19 PATCH ON ity of mcg/hour 00:00: 00:00 [place] PTWK 00 :00 EVERY Medical WEEK. Branch acetaminoph 2022-0 Yes [...] 6 Medical HOURS Branch NEEDED acetaminoph 2022-0 2023- No TAKE 1 [facility] vers en-codeine 4-18 07-19 TABLET BY ity of 300-60 mg 00:00: 00:00 MOUTH [place] tablet 00 :00 EVERY 6 Medical HOURS Branch NEEDED acetaminoph 2022-0 3- No TAKE 1 [facility] vers en-codeine 4-18 07-19 TABLET BY ity of 300-60 mg 00:00: 00:00 MOUTH [place] tablet 00 :00 EVERY 6 Medical HOURS Branch NEEDED acetaminoph 2022-0 3- No TAKE 1 [facility] vers en-codeine 4-18 07-19 TABLET BY ity of 300-60 mg 00:00: 00:00 MOUTH [place] tablet 00 :00 EVERY 6 Medical HOURS Branch NEEDED acetaminoph 2022-0 3- No TAKE 1 [facility] vers en-codeine 4-18 07-19 TABLET BY ity of 300-60 mg 00:00: 00:00 MOUTH [place] tablet 00 :00 EVERY 6 Medical HOURS Branch NEEDED losartan 25 Yes 25mg Take 25 mg [facility] mg tablet 4-11 by mouth ity of 13:05: daily. [address] losartan 25 Yes 25mg Take 25 mg [facility] mg tablet 4-11 by mouth ity of 13:05: daily. [address] losartan 25 Yes 25mg Take 25 mg [facility] mg tablet 4-11 by mouth ity of 13:05: daily. [address] losartan 25 0 Yes 25mg Take 25 mg [facility] mg tablet 4-11 by mouth ity of 13:05: daily. [address] losartan 25 0 Yes 25mg Take 25 mg [facility] mg tablet 4-11 by mouth ity of 13:05: daily. [address] losartan 25 0 Yes 25mg Take 25 mg [facility] mg tablet 4-11 by mouth ity of 13:05: daily. [address] losartan 25 Yes 25mg Take 25 mg [facility] mg tablet 4-11 by mouth ity of 13:05: daily. [address] losartan 25 Yes 25mg Take 25 mg [facility] mg tablet 4-11 by mouth ity of 13:05: daily. [address] losartan 25 Yes 25mg Take 25 mg [facility] mg tablet 4-11 by mouth ity of 13:05: daily. [address] losartan 25 Yes 25mg Take 25 mg [facility] mg tablet 4-11 by mouth ity of 13:05: daily. [address] losartan 25 Yes 25mg Take 25 mg [facility] mg tablet 4-11 by mouth ity of 13:05: daily. [address] losartan 25 Yes 25mg Take 25 mg [facility] mg tablet 4-11 by mouth ity of 13:05: daily. [address] losartan 25 Yes 25mg Take 25 mg [facility] mg tablet 4-11 by mouth ity of 13:05: daily. [address] losartan 25 Yes 25mg Take 25 mg [facility] mg tablet 4-11 by mouth ity of 13:05: daily. [address] losartan 25 Yes 25mg Take 25 mg [facility] mg tablet 4-11 by mouth ity of 13:05: daily. [address] losartan 25 Yes 25mg Take 25 mg [facility] mg tablet 4-11 by mouth ity of 13:05: daily. [address] losartan 25 Yes 25mg Take 25 mg [facility] mg tablet 4-11 by mouth ity of 13:05: daily. [address] losartan 25 Yes 25mg Take 25 mg [facility] mg tablet 4-11 by mouth ity of 13:05: daily. [address] losartan 25 Yes 25mg Take 25 mg [facility] mg tablet 4-11 by mouth ity of 13:05: daily. [address] losartan 25 Yes 25mg Take 25 mg [facility] mg tablet 4-11 by mouth ity of 13:05: daily. [address] losartan 25 Yes 25mg Take 25 mg [facility] mg tablet 4-11 by mouth ity of 13:05: daily. [address] ACCU-CHEK Yes [facility] SOFTCLIX 4-07 ity of LANCETS 00:00: [address] ACCU-CHEK 2022-0 Yes [facility] SOFTCLIX 4-07 ity of LANCETS 00:00: [facility] 00 Medical Branch ACCU-CHEK 2022-0 Yes [facility] SOFTCLIX 4-07 ity of LANCETS 00:00: [facility] 00 Medical Branch ACCU-CHEK 2022-0 Yes Univers SOFTCLIX 4-07 ity of LANCETS 00:00: [facility] 00 Medical Branch ACCU-CHEK 2022-0 Yes Univers SOFTCLIX 4-07 ity of LANCETS 00:00: [facility] 00 Medical Branch ACCU-CHEK 2022-0 Yes Univers SOFTCLIX 4-07 ity of LANCETS 00:00: [facility] 00 Medical Branch ACCU-CHEK 2022-0 Yes Univers SOFTCLIX 4-07 ity of LANCETS 00:00: [facility] 00 Medical Branch ACCU-CHEK 2022-0 Yes Univers SOFTCLIX 4-07 ity of LANCETS 00:00: [place] [address] Medical Branch ACCU-CHEK 2022-0 Yes Univers SOFTCLIX 4-07 ity of LANCETS 00:00: [facility] 00 Medical Branch ACCU-CHEK 2022-0 Yes Univers SOFTCLIX 4-07 ity of LANCETS 00:00: [place] [address] Medical Branch ACCU-CHEK 2022-0 Yes Univers SOFTCLIX 4-07 ity of LANCETS 00:00: [facility] 00 Medical Branch ACCU-CHEK 2022-0 Yes Univers SOFTCLIX 4-07 ity of LANCETS 00:00: [facility] 00 Medical Branch ACCU-CHEK 2022-0 Yes Univers SOFTCLIX 4-07 ity of LANCETS 00:00: [facility] 00 Medical Branch ACCU-CHEK 2022-0 Yes Univers SOFTCLIX 4-07 ity of LANCETS 00:00: [facility] 00 Medical Branch ACCU-CHEK 2022-0 Yes Univers SOFTCLIX 4-07 ity of LANCETS 00:00: [facility] 00 Medical Branch ACCU-CHEK 2022-0 Yes Univers SOFTCLIX 4-07 ity of LANCETS 00:00: [facility] 00 Medical Branch ACCU-CHEK 2022-0 Yes Univers SOFTCLIX 4-07 ity of LANCETS 00:00: [facility] 00 Medical Branch ACCU-CHEK 2022-0 Yes Univers SOFTCLIX 4-07 ity of LANCETS 00:00: [facility] 00 Medical Branch ACCU-CHEK 2022-0 Yes Univers SOFTCLIX 4-07 ity of LANCETS 00:00: [facility] 00 Medical Branch ACCU-CHEK 2022-0 Yes Univers SOFTCLIX 4-07 ity of LANCETS 00:00: [facility] 00 Medical Branch ACCU-CHEK 2022-0 Yes Univers SOFTCLIX 4-07 ity of LANCETS 00:00: [facility] 00 Medical Branch ACCU-CHEK 2022-0 Yes Univers SOFTCLIX 4-07 ity of LANCETS 00:00: [facility] 00 Medical Branch ACCU-CHEK 2022-0 Yes Univers SOFTCLIX 4-07 ity of LANCETS 00:00: [facility] 00 Medical Branch ACCU-CHEK 2022-0 Yes Univers SOFTCLIX 4-07 ity of LANCETS 00:00: [facility] 00 Medical Branch ACCU-CHEK 2022-0 Yes Univers SOFTCLIX 4-07 ity of LANCETS 00:00: [facility] 00 Medical Branch ACCU-CHEK 2022-0 Yes Univers SOFTCLIX 4-07 ity of LANCETS 00:00: [facility] 00 Medical Branch ACCU-CHEK 2022-0 Yes Univers SOFTCLIX 4-07 ity of LANCETS 00:00: [facility] 00 Medical Branch ACCU-CHEK 2022-0 Yes Univers SOFTCLIX 4-07 ity of LANCETS 00:00: [facility] 00 Medical Branch ACCU-CHEK 2022-0 Yes Univers SOFTCLIX 4-07 ity of LANCETS 00:00: [facility] 00 Medical Branch ACCU-CHEK 2022-0 Yes Univers SOFTCLIX 4-07 ity of LANCETS 00:00: [facility] 00 Medical Branch ACCU-CHEK 2022-0 Yes Univers SOFTCLIX 4-07 ity of LANCETS 00:00: [facility] 00 Medical Branch ACCU-CHEK 2022-0 Yes Univers SOFTCLIX 4-07 ity of LANCETS 00:00: [facility] 00 Medical Branch ACCU-CHEK 2022-0 Yes Univers SOFTCLIX 4-07 ity of LANCETS 00:00: [facility] 00 Medical Branch ACCU-CHEK 2022-0 Yes Univers SOFTCLIX 4-07 ity of LANCETS 00:00: [facility] 00 Medical Branch ACCU-CHEK 2022-0 Yes Univers SOFTCLIX 4-07 ity of LANCETS 00:00: [facility] 00 Medical Branch ACCU-CHEK 2022-0 Yes Univers SOFTCLIX 4-07 ity of LANCETS 00:00: [facility] 00 Medical Branch ACCU-CHEK 2022-0 Yes Univers SOFTCLIX 4-07 ity of LANCETS 00:00: [facility] 00 Medical Branch ACCU-CHEK 2022-0 Yes Univers SOFTCLIX 4-07 ity of LANCETS 00:00: [facility] 00 Medical Branch ACCU-CHEK 2022-0 Yes Univers SOFTCLIX 4-07 ity of LANCETS 00:00: [facility] 00 Medical Branch ACCU-CHEK 2022-0 Yes Univers SOFTCLIX 4-07 ity of LANCETS 00:00: [facility] 00 Medical Branch ACCU-CHEK 2022-0 Yes Univers SOFTCLIX 4-07 ity of LANCETS 00:00: [facility] 00 Medical Branch ACCU-CHEK 2022-0 Yes Univers SOFTCLIX 4-07 ity of LANCETS 00:00: [facility] 00 Medical Branch ACCU-CHEK 2022-0 Yes Univers SOFTCLIX 4-07 ity of LANCETS 00:00: [facility] 00 Medical Branch ACCU-CHEK 2022-0 Yes Univers SOFTCLIX 4-07 ity of LANCETS 00:00: [facility] 00 Medical Branch ACCU-CHEK 2022-0 Yes Univers SOFTCLIX 4-07 ity of LANCETS 00:00: [facility] 00 Medical Branch ACCU-CHEK 2022-0 Yes Univers SOFTCLIX 4-07 ity of LANCETS 00:00: [facility] 00 Medical Branch ACCU-CHEK 2022-0 Yes Univers SOFTCLIX 4-07 ity of LANCETS 00:00: [facility] 00 Medical Branch ACCU-CHEK 2022-0 Yes Univers SOFTCLIX 4-07 ity of LANCETS 00:00: [facility] 00 Medical Branch ACCU-CHEK 2022-0 Yes Univers SOFTCLIX 4-07 ity of LANCETS 00:00: [facility] 00 Medical Branch ACCU-CHEK 2022-0 Yes Univers SOFTCLIX 4-07 ity of LANCETS 00:00: [facility] 00 Medical Branch ACCU-CHEK 2022-0 Yes Univers SOFTCLIX 4-07 ity of LANCETS 00:00: [facility] 00 Medical Branch ACCU-CHEK 2022-0 Yes Univers SOFTCLIX 4-07 ity of LANCETS 00:00: [facility] 00 Medical Branch ACCU-CHEK 2022-0 Yes Univers SOFTCLIX 4-07 ity of LANCETS 00:00: [facility] 00 Medical Branch ACCU-CHEK 2022-0 Yes Univers SOFTCLIX 4-07 ity of LANCETS 00:00: [facility] 00 Medical Branch ACCU-CHEK 2022-0 Yes Univers SOFTCLIX 4-07 ity of LANCETS 00:00: [place] [address] Medical Branch ACCU-CHEK 2022-0 Yes Univers SOFTCLIX 4-07 ity of LANCETS 00:00: [facility] 00 Medical Branch ACCU-CHEK 2022-0 Yes Univers SOFTCLIX 4-07 ity of LANCETS 00:00: [facility] 00 Medical Branch ACCU-CHEK 2022-0 Yes Univers SOFTCLIX 4-07 ity of LANCETS 00:00: [facility] 00 Medical Branch ACCU-CHEK 2022-0 Yes Univers SOFTCLIX 4-07 ity of LANCETS 00:00: [facility] 00 Medical Branch ACCU-CHEK 2022-0 Yes Univers SOFTCLIX 4-07 ity of LANCETS 00:00: [facility] 00 Medical Branch ACCU-CHEK 2022-0 Yes Univers SOFTCLIX 4-07 ity of LANCETS 00:00: [facility] 00 Medical Branch ACCU-CHEK 2022-0 Yes Univers SOFTCLIX 4-07 ity of LANCETS 00:00: [facility] 00 Medical Branch ACCU-CHEK 2022-0 Yes Univers SOFTCLIX 4-07 ity of LANCETS 00:00: [facility] 00 Medical Branch ACCU-CHEK 2022-0 Yes Univers SOFTCLIX 4-07 ity of LANCETS 00:00: [facility] 00 Medical Branch ACCU-CHEK 2022-0 Yes Univers SOFTCLIX 4-07 ity of LANCETS 00:00: [facility] 00 Medical Branch ACCU-CHEK 2022-0 Yes Univers SOFTCLIX 4-07 ity of LANCETS 00:00: [facility] 00 Medical Branch ACCU-CHEK 2022-0 Yes Univers SOFTCLIX 4-07 ity of LANCETS 00:00: [facility] 00 Medical Branch ACCU-CHEK 2022-0 Yes Univers SOFTCLIX 4-07 ity of LANCETS 00:00: [facility] 00 Medical Branch ACCU-CHEK 2022-0 Yes Univers SOFTCLIX 4-07 ity of LANCETS 00:00: [facility] 00 Medical Branch ACCU-CHEK 2022-0 Yes Univers SOFTCLIX 4-07 ity of LANCETS 00:00: [facility] 00 Medical Branch ACCU-CHEK 2022-0 Yes Univers SOFTCLIX 4-07 ity of LANCETS 00:00: [facility] 00 Medical Branch ACCU-CHEK 2022-0 Yes Univers SOFTCLIX 4-07 ity of LANCETS 00:00: [facility] 00 Medical Branch ACCU-CHEK 2022-0 Yes Univers SOFTCLIX 4-07 ity of LANCETS 00:00: [facility] 00 Medical Branch ACCU-CHEK 2022-0 Yes Univers SOFTCLIX 4-07 ity of LANCETS 00:00: [facility] 00 Medical Branch ACCU-CHEK 2022-0 Yes Univers SOFTCLIX 4-07 ity of LANCETS 00:00: [facility] 00 Medical Branch ACCU-CHEK 2022-0 Yes Univers SOFTCLIX 4-07 ity of LANCETS 00:00: [facility] 00 Medical Branch ACCU-CHEK 2022-0 Yes Univers SOFTCLIX 4-07 ity of LANCETS 00:00: [facility] 00 Medical Branch ACCU-CHEK 2022-0 Yes Univers SOFTCLIX 4-07 ity of LANCETS 00:00: [facility] 00 Medical Branch ACCU-CHEK 2022-0 Yes Univers SOFTCLIX 4-07 ity of LANCETS 00:00: [facility] 00 Medical Branch ACCU-CHEK 2022-0 Yes Univers SOFTCLIX 4-07 ity of LANCETS 00:00: [place] Misc 00 Medical Branch ACCU-CHEK 2-0 Yes Univers SOFTCLIX 4-07 ity of LANCETS 00:00: [place] Misc 00 Medical Branch blood sugar 2021-0 Yes [id number] Use as [facility] diagnostic 4-02 directed ity o f (ACCU-CHEK 00:00: [place] SMARTVIEW 00 Medical TEST STRIP) Branch strip blood sugar 2021-0 Yes [id number] Use as [facility] diagnostic 4-02 directed ity o f (ACCU-CHEK 00:00: [place] SMARTVIEW 00 Medical TEST STRIP) Branch strip blood sugar 2021-0 Yes [id number] Use as [facility] diagnostic 4-02 directed ity o f (ACCU-CHEK 00:00: [place] SMARTVIEW 00 Medical TEST STRIP) Branch strip blood sugar 2021-0 Yes [id number] Use as [facility] diagnostic 4-02 directed ity o f (ACCU-CHEK 00:00: [place] SMARTVIEW 00 Medical TEST STRIP) Branch strip blood sugar 2021-0 Yes [id number] Use as [facility] diagnostic 4-02 directed ity o f (ACCU-CHEK 00:00: [place] SMARTVIEW 00 Medical TEST STRIP) Branch strip blood sugar 2021-0 Yes [id number] Use as [facility] diagnostic 4-02 directed ity o f (ACCU-CHEK 00:00: [place] SMARTVIEW 00 Medical TEST STRIP) Branch strip blood sugar 2021-0 Yes [id number] Use as [facility] diagnostic 4-02 directed ity o f (ACCU-CHEK 00:00: [place] SMARTVIEW 00 Medical TEST STRIP) Branch strip blood sugar 2021-0 Yes [id number] Use as [facility] diagnostic 4-02 directed ity o f (ACCU-CHEK 00:00: [place] SMARTVIEW 00 Medical TEST STRIP) Branch strip blood sugar 2-0 Yes [id number] Use as [facility] diagnostic 4-02 directed ity o f (ACCU-CHEK 00:00: [place] SMARTVIEW 00 Medical TEST STRIP) Branch strip blood sugar 2-0 Yes [id number] Use as [facility] diagnostic 4-02 directed ity o f (ACCU-CHEK 00:00: [place] SMARTVIEW 00 Medical TEST STRIP) Branch strip blood sugar 2-0 Yes [id number] Use as [facility] diagnostic 4-02 directed ity o f (ACCU-CHEK 00:00: [place] SMARTVIEW 00 Medical TEST STRIP) Branch strip blood sugar 2022-0 Yes [id number] Use as [facility] diagnostic 4-02 directed ity o f (ACCU-CHEK 00:00: [place] SMARTVIEW 00 Medical TEST STRIP) Branch strip blood sugar 2022-0 Yes [id number] Use as [facility] diagnostic 4- directed ity o f (ACCU-CHEK 00:00: [place] SMARTVIEW 00 Medical TEST STRIP) Branch strip blood sugar 2022-0 Yes [id number] Use as [facility] diagnostic 4- directed ity o f (ACCU-CHEK 00:00: [place] SMARTVIEW 00 Medical TEST STRIP) Branch strip blood sugar 2021-0 Yes [id number] Use as [facility] diagnostic 4- directed ity o f (ACCU-CHEK 00:00: [place] SMARTVIEW 00 Medical TEST STRIP) Branch strip blood sugar 2021-0 Yes [id number] Use as [facility] diagnostic 4- directed ity o f (ACCU-CHEK 00:00: [place] SMARTVIEW 00 Medical TEST STRIP) Branch strip blood sugar 2-0 Yes [id number] Use as [facility] diagnostic 4- directed ity o f (ACCU-CHEK 00:00: [place] SMARTVIEW 00 Medical TEST STRIP) Branch strip blood sugar 2-0 Yes [id number] Use as [facility] diagnostic 4- directed ity o f (ACCU-CHEK 00:00: [place] SMARTVIEW 00 Medical TEST STRIP) Branch strip blood sugar 2-0 Yes [id number] Use as [facility] diagnostic 4- directed ity o f (ACCU-CHEK 00:00: [place] SMARTVIEW 00 Medical TEST STRIP) Branch strip blood sugar 2022-0 Yes [id number] Use as [facility] diagnostic 4- directed ity o f (ACCU-CHEK 00:00: [place] SMARTVIEW 00 Medical TEST STRIP) Branch strip blood sugar 2022-0 Yes [id number] Use as [facility] diagnostic 4-02 directed ity o f (ACCU-CHEK 00:00: [place] SMARTVIEW 00 Medical TEST STRIP) Branch strip blood sugar 2022-0 Yes [id number] Use as [facility] diagnostic 4-02 directed ity o f (ACCU-CHEK 00:00: [place] SMARTVIEW 00 Medical TEST STRIP) Branch strip blood sugar 2022-0 Yes [id number] Use as [facility] diagnostic 4-02 directed ity o f (ACCU-CHEK 00:00: [place] SMARTVIEW 00 Medical TEST STRIP) Branch strip blood sugar 2021-0 Yes [id number] Use as [facility] diagnostic 4-02 directed ity o f (ACCU-CHEK 00:00: [place] SMARTVIEW 00 Medical TEST STRIP) Branch strip blood sugar 2021-0 Yes [id number] Use as [facility] diagnostic 4- directed ity o f (ACCU-CHEK 00:00: [place] SMARTVIEW 00 Medical TEST STRIP) Branch strip blood sugar 2021-0 Yes [id number] Use as [facility] diagnostic 4- directed ity o f (ACCU-CHEK 00:00: [place] SMARTVIEW 00 Medical TEST STRIP) Branch strip blood sugar 2021-0 Yes [id number] Use as [facility] diagnostic 4- directed ity o f (ACCU-CHEK 00:00: [place] SMARTVIEW 00 Medical TEST STRIP) Branch strip blood sugar 2021-0 Yes [id number] Use as [facility] diagnostic 4- directed ity o f (ACCU-CHEK 00:00: [place] SMARTVIEW 00 Medical TEST STRIP) Branch strip blood sugar 2021-0 Yes [id number] Use as [facility] diagnostic 4- directed ity o f (ACCU-CHEK 00:00: [place] SMARTVIEW 00 Medical TEST STRIP) Branch strip blood sugar 2021-0 Yes [id number] Use as [facility] diagnostic 4- directed ity o f (ACCU-CHEK 00:00: [place] SMARTVIEW 00 Medical TEST STRIP) Branch strip blood sugar 2-0 Yes [id number] Use as [facility] diagnostic 4- directed ity o f (ACCU-CHEK 00:00: [place] SMARTVIEW 00 Medical TEST STRIP) Branch strip blood sugar 2-0 Yes [id number] Use as [facility] diagnostic 4-02 directed ity o f (ACCU-CHEK 00:00: [place] SMARTVIEW 00 Medical TEST STRIP) Branch strip blood sugar 2-0 Yes [id number] Use as [facility] diagnostic 4-02 directed ity o f (ACCU-CHEK 00:00: [place] SMARTVIEW 00 Medical TEST STRIP) Branch strip blood sugar 2022-0 Yes [id number] Use as [facility] diagnostic 4-02 directed ity o f (ACCU-CHEK 00:00: [place] SMARTVIEW 00 Medical TEST STRIP) Branch strip blood sugar 2-0 Yes [id number] Use as [facility] diagnostic 4-02 directed ity o f (ACCU-CHEK 00:00: [place] SMARTVIEW 00 Medical TEST STRIP) Branch strip blood sugar 2022-0 Yes [id number] Use as [facility] diagnostic 4-02 directed ity o f (ACCU-CHEK 00:00: [place] SMARTVIEW 00 Medical TEST STRIP) Branch strip blood sugar 2022-0 Yes [id number] Use as [facility] diagnostic 4-02 directed ity o f (ACCU-CHEK 00:00: [place] SMARTVIEW 00 Medical TEST STRIP) Branch strip blood sugar 2021-0 Yes [id number] Use as [facility] diagnostic 4- directed ity o f (ACCU-CHEK 00:00: [place] SMARTVIEW 00 Medical TEST STRIP) Branch strip blood sugar 2-0 Yes [id number] Use as [facility] diagnostic 4- directed ity o f (ACCU-CHEK 00:00: [place] SMARTVIEW 00 Medical TEST STRIP) Branch strip blood sugar 2021-0 Yes [id number] Use as [facility] diagnostic 4- directed ity o f (ACCU-CHEK 00:00: [place] SMARTVIEW 00 Medical TEST STRIP) Branch strip blood sugar 2-0 Yes [id number] Use as [facility] diagnostic 4- directed ity o f (ACCU-CHEK 00:00: [place] SMARTVIEW 00 Medical TEST STRIP) Branch strip blood sugar 2022-0 Yes [id number] Use as [facility] diagnostic 4- directed ity o f (ACCU-CHEK 00:00: [place] SMARTVIEW 00 Medical TEST STRIP) Branch strip blood sugar 2022-0 Yes [id number] [facility] as [facility] diagnostic 4-02 directed ity o f (ACCU-CHEK 00:00: [place] SMARTVIEW 00 Medical TEST STRIP) Branch strip blood sugar 2022-0 Yes [id number] Use as [facility] diagnostic 4-02 directed ity o f (ACCU-CHEK 00:00: [place] SMARTVIEW 00 Medical TEST STRIP) Branch strip blood sugar 2022-0 Yes [id number] Use as [facility] diagnostic 4-02 directed ity o f (ACCU-CHEK 00:00: [place] SMARTVIEW 00 Medical TEST STRIP) Branch strip blood sugar 2022-0 Yes [id number] Use as [facility] diagnostic 4-02 directed ity o f (ACCU-CHEK 00:00: [place] SMARTVIEW 00 Medical TEST STRIP) Branch strip blood sugar 2022-0 Yes [id number] Use as [facility] diagnostic 4-02 directed ity o f (ACCU-CHEK 00:00: [place] SMARTVIEW 00 Medical TEST STRIP) Branch strip blood sugar 2022-0 Yes [id number] Use as [facility] diagnostic 4- directed ity o f (ACCU-CHEK 00:00: [place] SMARTVIEW 00 Medical TEST STRIP) Branch strip blood sugar 2022-0 Yes [id number] Use as [facility] diagnostic 4- directed ity o f (ACCU-CHEK 00:00: [place] SMARTVIEW 00 Medical TEST STRIP) Branch strip blood sugar 2022-0 Yes [id number] Use as [facility] diagnostic 4- directed ity o f (ACCU-CHEK 00:00: [place] SMARTVIEW 00 Medical TEST STRIP) Branch strip blood sugar 2022-0 Yes [id number] Use as [facility] diagnostic 4- directed ity o f (ACCU-CHEK 00:00: [place] SMARTVIEW 00 Medical TEST STRIP) Branch strip blood sugar 2022-0 Yes [id number] Use as [facility] diagnostic 4- directed ity o f (ACCU-CHEK 00:00: [place] SMARTVIEW 00 Medical TEST STRIP) Branch strip blood sugar 2022-0 Yes [id number] Use as [facility] diagnostic 4- directed ity o f (ACCU-CHEK 00:00: [place] SMARTVIEW 00 Medical TEST STRIP) Branch strip blood sugar 2022-0 Yes [id number] Use as [facility] diagnostic 4- directed ity o f (ACCU-CHEK 00:00: [place] SMARTVIEW 00 Medical TEST STRIP) Branch strip blood sugar 2022-0 Yes [id number] Use as [facility] diagnostic 4- directed ity o f (ACCU-CHEK 00:00: [place] SMARTVIEW 00 Medical TEST STRIP) Branch strip blood sugar 2022-0 Yes [id number] Use as [facility] diagnostic 4-02 directed ity o f (ACCU-CHEK 00:00: [place] SMARTVIEW 00 Medical TEST STRIP) Branch strip blood sugar 2022-0 Yes [id number] Use as [facility] diagnostic 4-02 directed ity o f (ACCU-CHEK 00:00: [place] SMARTVIEW 00 Medical TEST STRIP) Branch strip blood sugar 2021-0 Yes [id number] Use as [facility] diagnostic 4- directed ity o f (ACCU-CHEK 00:00: [place] SMARTVIEW 00 Medical TEST STRIP) Branch strip blood sugar 2021-0 Yes [id number] Use as [facility] diagnostic 4- directed ity o f (ACCU-CHEK 00:00: [place] SMARTVIEW 00 Medical TEST STRIP) Branch strip blood sugar 2021-0 Yes [id number] Use as [facility] diagnostic 4- directed ity o f (ACCU-CHEK 00:00: [place] SMARTVIEW 00 Medical TEST STRIP) Branch strip blood sugar 2021-0 Yes [id number] Use as [facility] diagnostic 4- directed ity o f (ACCU-CHEK 00:00: [place] SMARTVIEW 00 Medical TEST STRIP) Branch strip blood sugar 2021-0 Yes [id number] Use as [facility] diagnostic - directed ity o f (ACCU-CHEK 00:00: [place] SMARTVIEW 00 Medical TEST STRIP) Branch strip blood sugar 2021-0 Yes [id number] Use as [facility] diagnostic 08-12 directed ity o f (ACCU-CHEK 00:00: [place] SMARTVIEW 00 Medical TEST STRIP) Branch strip blood sugar 2021-0 Yes [id number] Use as [facility] diagnostic - directed ity o f (ACCU-CHEK 00:00: [place] SMARTVIEW 00 Medical TEST STRIP) Branch strip blood sugar 2021-0 Yes [id number] Use as [facility] diagnostic 4- directed ity o f (ACCU-CHEK 00:00: [place] SMARTVIEW 00 Medical TEST STRIP) Branch strip blood sugar 2021-0 3- No [id number] Use as [facility] diagnostic 4-11-28 directed ity of (ACCU-CHEK 00:00: 00:00 [place] SMARTVIEW 00 :00 Medical TEST STRIP) Branch strip blood sugar 2-0 3- No [id number] Use as [facility] diagnostic 4-11-28 directed ity of (ACCU-CHEK 00:00: 00:00 [place] SMARTVIEW 00 :00 Medical TEST STRIP) Branch strip blood sugar 2022-0 3- No [id number] Use as [facility] diagnostic 4-11-28 directed ity of (ACCU-CHEK 00:00: 00:00 [place] SMARTVIEW 00 :00 Medical TEST STRIP) Branch strip blood sugar 3- No [id number] Use as [facility] diagnostic 08-12 directed ity of (ACCU-CHEK 00:00: 00:00 [place] SMARTVIEW 00 :00 Medical TEST STRIP) Branch strip rosuvastati Yes [id number] 5mg Take 1 [facility] n 5 mg 3-23 tablet by ity of tablet 00:00: mouth [place] 00 daily. Medical Branch rosuvastati Yes [id number] 5mg Take 1 [facility] n 5 mg 3-23 tablet by ity of tablet 00:00: mouth [place] 00 daily. Medical Branch rosuvastati Yes [id number] 5mg Take 1 [facility] n 5 mg 3-23 tablet by ity of tablet 00:00: mouth [place] 00 daily. Medical Branch rosuvastati Yes [id number] 5mg Take 1 [facility] n 5 mg 3-23 tablet by ity of tablet 00:00: mouth [place] 00 daily. Medical Branch rosuvastati Yes [id number] 5mg Take 1 [facility] n 5 mg 3-23 tablet by ity of tablet 00:00: mouth [place] 00 daily. Medical Branch rosuvastati Yes [id number] 5mg Take 1 [facility] n 5 mg 3-23 tablet by ity of tablet 00:00: mouth [place] 00 daily. Medical Branch rosuvastati Yes [id number] 5mg Take 1 [facility] n 5 mg 3-23 tablet by ity of tablet 00:00: mouth [place] 00 daily. Medical Branch rosuvastati Yes [id number] 5mg Take 1 [facility] n 5 mg 3-23 tablet by ity of tablet 00:00: mouth [place] 00 daily. Medical Branch rosuvastati Yes [id number] 5mg Take 1 [facility] n 5 mg 3-23 tablet by ity of tablet 00:00: mouth [place] 00 daily. Medical Branch rosuvastati Yes [id number] 5mg Take 1 [facility] n 5 mg 3-23 tablet by ity of tablet 00:00: mouth [place] 00 daily. Medical Branch rosuvastati Yes [id number] 5mg Take 1 [facility] n 5 mg 3-23 tablet by ity of tablet 00:00: mouth [place] 00 daily. Medical Branch rosuvastati Yes [id number] 5mg Take 1 [facility] n 5 mg 3-23 tablet by ity of tablet 00:00: mouth [place] 00 daily. [facility] Branch rosuvastati Yes [id number] 5mg Take 1 [facility] n 5 mg 3-23 tablet by ity of tablet 00:00: mouth [place] 00 daily. [facility] Branch rosuvastati Yes [id number] 5mg Take 1 [facility] n 5 mg 3-23 tablet by ity of tablet 00:00: mouth [place] 00 daily. [facility] Branch rosuvastati Yes [id number] 5mg Take 1 [facility] n 5 mg 3-23 tablet by ity of tablet 00:00: mouth [place] 00 daily. [facility] Branch rosuvastati Yes [id number] 5mg Take 1 [facility] n 5 mg 3-23 tablet by ity of tablet 00:00: mouth [place] 00 daily. [facility] Branch rosuvastati Yes [id number] 5mg Take 1 [facility] n 5 mg 3-23 tablet by ity of tablet 00:00: mouth [place] 00 daily. [facility] Branch rosuvastati Yes [id number] 5mg Take 1 [facility] n 5 mg 3-23 tablet by ity of tablet 00:00: mouth [place] 00 daily. [facility] Branch rosuvastati Yes [id number] 5mg Take 1 [facility] n 5 mg 3-23 tablet by ity of tablet 00:00: mouth [place] 00 daily. [facility] Branch rosuvastati Yes [id number] 5mg Take 1 [facility] n 5 mg 3-23 tablet by ity of tablet 00:00: mouth [place] 00 daily. [facility] Branch rosuvastati Yes [id number] 5mg Take 1 [facility] n 5 mg 3-23 tablet by ity of tablet 00:00: mouth [place] 00 daily. [facility] Branch rosuvastati Yes [id number] 5mg Take 1 [facility] n 5 mg 3-23 tablet by ity of tablet 00:00: mouth [place] 00 daily. [facility] rosuvastati Yes [id number] 5mg Take 1 [facility] n 5 mg 3-23 tablet by ity of tablet 00:00: mouth [place] 00 daily. [facility] rosuvastati Yes [id number] 5mg Take 1 [facility] n 5 mg 3-23 tablet by ity of tablet 00:00: mouth [place] 00 daily. Medical Branch rosuvastati Yes [id number] 5mg Take 1 [facility] n 5 mg 3-23 tablet by ity of tablet 00:00: mouth [place] 00 daily. Medical Branch rosuvastati Yes [id number] 5mg Take 1 [facility] n 5 mg 3-23 tablet by ity of tablet 00:00: mouth [place] 00 daily. Medical Branch rosuvastati Yes [id number] 5mg Take 1 [facility] n 5 mg 3-23 tablet by ity of tablet 00:00: mouth [place] 00 daily. Medical Branch rosuvastati Yes [id number] 5mg Take 1 [facility] n 5 mg 3-23 tablet by ity of tablet 00:00: mouth [place] 00 daily. Medical Branch rosuvastati Yes [id number] 5mg Take 1 [facility] n 5 mg 3-23 tablet by ity of tablet 00:00: mouth [place] 00 daily. Medical Branch rosuvastati Yes [id number] 5mg Take 1 [facility] n 5 mg 3-23 tablet by ity of tablet 00:00: mouth [place] 00 daily. Medical Branch rosuvastati Yes [id number] 5mg Take 1 [facility] n 5 mg 3-23 tablet by ity of tablet 00:00: mouth [place] 00 daily. Medical Branch rosuvastati Yes [id number] 5mg Take 1 [facility] n 5 mg 3-23 tablet by ity of tablet 00:00: mouth [place] 00 daily. Medical Branch rosuvastati Yes [id number] 5mg Take 1 [facility] n 5 mg 3-23 tablet by ity of tablet 00:00: mouth [place] 00 daily. [facility] Branch rosuvastati Yes [id number] 5mg Take 1 [facility] n 5 mg 3-23 tablet by ity of tablet 00:00: mouth [place] 00 daily. [facility] Branch rosuvastati Yes [id number] 5mg Take 1 [facility] n 5 mg 3-23 tablet by ity of tablet 00:00: mouth [place] 00 daily. [facility] Branch rosuvastati Yes [id number] 5mg Take 1 [facility] n 5 mg 3-23 tablet by ity of tablet 00:00: mouth [place] 00 daily. [facility] Branch rosuvastati Yes [id number] 5mg Take 1 [facility] n 5 mg 3-23 tablet by ity of tablet 00:00: mouth [place] 00 daily. [facility] Branch rosuvastati Yes [id number] 5mg Take 1 [facility] n 5 mg 3-23 tablet by ity of tablet 00:00: mouth [place] 00 daily. [facility] Branch rosuvastati Yes [id number] 5mg Take 1 [facility] n 5 mg 3-23 tablet by ity of tablet 00:00: mouth [place] 00 daily. [facility] Branch rosuvastati Yes [id number] 5mg Take 1 [facility] n 5 mg 3-23 tablet by ity of tablet 00:00: mouth [place] 00 daily. [facility] Branch rosuvastati Yes [id number] 5mg Take 1 [facility] n 5 mg 3-23 tablet by ity of tablet 00:00: mouth [place] 00 daily. [facility] Branch rosuvastati Yes [id number] 5mg Take 1 [facility] n 5 mg 3-23 tablet by ity of tablet 00:00: mouth [place] 00 daily. [facility] Branch rosuvastati Yes [id number] 5mg Take 1 [facility] n 5 mg 3-23 tablet by ity of tablet 00:00: mouth [place] 00 daily. [facility] Branch rosuvastati Yes [id number] 5mg Take 1 [facility] n 5 mg 3-23 tablet by ity of tablet 00:00: mouth [place] 00 daily. [facility] Branch rosuvastati Yes [id number] 5mg Take 1 [facility] n 5 mg 3-23 tablet by ity of tablet 00:00: mouth [place] 00 daily. [facility] Branch rosuvastati Yes [id number] 5mg Take 1 [facility] n 5 mg 3-23 tablet by ity of tablet 00:00: mouth [place] 00 daily. [facility] Branch rosuvastati Yes [id number] 5mg Take 1 [facility] n 5 mg 3-23 tablet by ity of tablet 00:00: mouth [place] 00 daily. [facility] rosuvastati Yes [id number] 5mg Take 1 [facility] n 5 mg 3-23 tablet by ity of tablet 00:00: mouth [place] 00 daily. [facility] rosuvastati Yes [id number] 5mg Take 1 [facility] n 5 mg 3-23 tablet by ity of tablet 00:00: mouth [place] 00 daily. Medical Branch rosuvastati Yes [id number] 5mg Take 1 [facility] n 5 mg 3-23 tablet by ity of tablet 00:00: mouth [place] 00 daily. Medical Branch rosuvastati Yes [id number] 5mg Take 1 [facility] n 5 mg 3-23 tablet by ity of tablet 00:00: mouth [place] 00 daily. Medical Branch rosuvastati Yes [id number] 5mg Take 1 [facility] n 5 mg 3-23 tablet by ity of tablet 00:00: mouth [place] 00 daily. Medical Branch rosuvastati Yes [id number] 5mg Take 1 [facility] n 5 mg 3-23 tablet by ity of tablet 00:00: mouth [place] 00 daily. Medical Branch rosuvastati Yes [id number] 5mg Take 1 [facility] n 5 mg 3-23 tablet by ity of tablet 00:00: mouth [place] 00 daily. Medical Branch rosuvastati Yes [id number] 5mg Take 1 [facility] n 5 mg 3-23 tablet by ity of tablet 00:00: mouth [place] 00 daily. Medical Branch rosuvastati Yes [id number] 5mg Take 1 [facility] n 5 mg 3-23 tablet by ity of tablet 00:00: mouth [place] 00 daily. Medical Branch rosuvastati Yes [id number] 5mg Take 1 [facility] n 5 mg 3-23 tablet by ity of tablet 00:00: mouth [place] 00 daily. Medical Branch rosuvastati Yes [id number] 5mg Take 1 [facility] n 5 mg 3-23 tablet by ity of tablet 00:00: mouth [place] 00 daily. [facility] Branch rosuvastati Yes [id number] 5mg Take 1 [facility] n 5 mg 3-23 tablet by ity of tablet 00:00: mouth [place] 00 daily. [facility] Branch rosuvastati Yes [id number] 5mg Take 1 [facility] n 5 mg 3-23 tablet by ity of tablet 00:00: mouth [place] 00 daily. [facility] Branch rosuvastati Yes [id number] 5mg Take 1 [facility] n 5 mg 3-23 tablet by ity of tablet 00:00: mouth [place] 00 daily. [facility] Branch rosuvastati 2-0 Yes [id number] 5mg Take 1 [facility] n 5 mg 3-23 tablet by ity of tablet 00:00: mouth [place] 00 daily. Medical Branch rosuvastati 2021-0 Yes [id number] 5mg Take 1 [facility] n 5 mg 3-23 tablet by ity of tablet 00:00: mouth [place] 00 daily. Medical Branch rosuvastati 2021-0 Yes [id number] 5mg Take 1 [facility] n 5 mg 3-23 tablet by ity of tablet 00:00: mouth [place] 00 daily. Medical Branch rosuvastati 2021-0 Yes [id number] 5mg Take 1 [facility] n 5 mg 3-23 tablet by ity of tablet 00:00: mouth [place] 00 daily. Medical Branch pantoprazol 2021-0 Yes 40mg Take 40 mg [facility] e 40 mg EC 3-18 by mouth ity o f tablet 00:00: daily. [place] 00 Medical Branch ondansetron 2021-0 Yes TAKE 1 Univ ers 4 mg tablet 3-18 TABLET BY ity of 00:00: MOUTH [place] 00 EVERY 12 Medical HOURS Branch NEEDED dicyclomine 2021-0 Yes 20mg Take 20 mg [facility] 20 mg 3-18 by mouth 4 ity of tablet 00:00: (four) [place] 00 times Medical daily. Branch pantoprazol 2021-0 Yes 40mg Take 40 mg [facility] e 40 mg EC 3-18 by mouth ity o f tablet 00:00: daily. [place] Medical Branch ondansetron 2021-0 Yes TAKE 1 Univ ers 4 mg tablet 3-18 TABLET BY ity of 00:00: MOUTH [place] 00 EVERY 12 Medical HOURS Branch NEEDED dicyclomine 2021-0 Yes 20mg Take 20 mg [facility] 20 mg 3-18 by mouth 4 ity of tablet 00:00: (four) [place] 00 times Medical daily. Branch pantoprazol 2021-0 Yes 40mg Take 40 mg [facility] e 40 mg EC 3-18 by mouth ity o f tablet 00:00: daily. [place] 00 Medical Branch ondansetron 2021-0 Yes TAKE 1 Univ ers 4 mg tablet 3-18 TABLET BY ity of 00:00: MOUTH [place] 00 EVERY 12 Medical HOURS Branch NEEDED dicyclomine 2-0 Yes 20mg Take 20 mg [facility] 20 mg 3-18 by mouth 4 ity of tablet 00:00: (four) [place] 00 times Medical daily. Branch pantoprazol 2022-0 [...] mouth 4 ity of tablet 00:00: (four) [place] 00 times Medical daily. Branch pantoprazol 2-0 Yes 40mg Take 40 mg [facility] e 40 mg EC 3-18 by mouth ity o f tablet 00:00: daily. [place] Medical Branch ondansetron 2022-0 Yes TAKE 1 [facility] ers 4 mg tablet 3-18 TABLET BY ity of 00:00: MOUTH [place] EVERY 12 Medical HOURS Branch NEEDED dicyclomine 2-0 Yes 20mg Take 20 mg [facility] 20 mg 3-18 by mouth 4 ity of tablet 00:00: (four) [place] 00 times Medical daily. Branch pantoprazol 2-0 Yes 40mg Take 40 mg [facility] e 40 mg EC 3-18 by mouth ity o f tablet 00:00: daily. [place] Medical Branch ondansetron 2022-0 Yes TAKE 1 [facility] ers 4 mg tablet 3-18 TABLET BY ity of 00:00: MOUTH [place] EVERY 12 Medical HOURS Branch NEEDED dicyclomine 2-0 Yes 20mg Take 20 mg [facility] 20 mg 3-18 by mouth 4 ity of tablet 00:00: (four) [place] times Medical daily. Branch pantoprazol 2022-0 Yes 40mg Take 40 mg [facility] e 40 mg EC 3-18 by mouth ity o f tablet 00:00: daily. [place] Medical Branch ondansetron 2-0 Yes TAKE 1 [facility] ers 4 mg tablet 3-18 TABLET BY ity of 00:00: MOUTH [place] 00 EVERY 12 Medical HOURS Branch NEEDED dicyclomine 2022-0 Yes 20mg Take 20 mg [facility] 20 mg 3-18 by mouth 4 ity of tablet 00:00: (four) [place] 00 times Medical daily. Branch pantoprazol 2022-0 Yes 40mg Take 40 mg [facility] e 40 mg EC 3-18 by mouth ity o f tablet 00:00: daily. [place] 00 Medical Branch ondansetron 2021-0 Yes TAKE 1 [facility] ers 4 mg tablet 3-18 TABLET BY ity of 00:00: MOUTH [place] 00 EVERY 12 Medical HOURS Branch NEEDED dicyclomine 2-0 Yes 20mg Take 20 mg [facility] 20 mg 3-18 by mouth 4 ity of tablet 00:00: (four) [place] 00 times Medical daily. Branch pantoprazol 2021-0 Yes 40mg Take 40 mg [facility] e 40 mg EC 3-18 by mouth ity o f tablet 00:00: daily. [place] [address] Medical Branch ondansetron 2021-0 Yes TAKE 1 Univ ers 4 mg tablet 3-18 TABLET BY ity of 00:00: MOUTH [place] 00 EVERY 12 Medical HOURS Branch NEEDED dicyclomine 2021-0 Yes 20mg Take 20 mg [facility] 20 mg 3-18 by mouth 4 ity of tablet 00:00: (four) [place] 00 times Medical daily. Branch pantoprazol 2021-0 Yes 40mg Take 40 mg [facility] e 40 mg EC 3-18 by mouth ity o f tablet 00:00: daily. [place] [address] Medical Branch ondansetron 2021-0 Yes TAKE 1 Univ ers 4 mg tablet 3-18 TABLET BY ity of 00:00: MOUTH [place] 00 EVERY 12 Medical HOURS Branch NEEDED dicyclomine 2021-0 Yes 20mg Take 20 mg [facility] 20 mg 3-18 by mouth 4 ity of tablet 00:00: (four) [place] 00 times Medical daily. Branch pantoprazol 2021-0 2021- No 40mg Take 40 mg [facility] e 40 mg EC -18 02-02 by mouth ity of tablet 00:00: 00:00 daily. [place] 00 :00 Medical Branch ondansetron 2021-0 2021- No TAKE 1 Uni vers 4 mg tablet 07-28 TABLET BY it y of 00:00: 00:00 MOUTH [place] 00 :00 EVERY 12 Medical HOURS Branch NEEDED dicyclomine 2-0 2021- No 20mg Take 20 mg [facility] 20 mg -18 02-02 by mouth 4 ity of tablet 00:00: 00:00 (four) [place] 00 :00 times Medical daily. Branch pantoprazol 2021-0 2021- No 40mg Take 40 mg [facility] e 40 mg EC 3-18 23 by mouth ity of tablet 00:00: 00:00 daily. [place] 00 :00 Medical Branch ondansetron 2021- No TAKE 1 [facility] vers 4 mg tablet 07-28 TABLET BY it y of 00:00: 00:00 MOUTH [place] 00 :00 EVERY 12 Medical HOURS Branch NEEDED dicyclomine 2021- No 20mg Take 20 mg [facility] 20 mg 07-28 by mouth 4 ity of tablet 00:00: 00:00 (four) [place] 00 :00 times Medical daily. Branch montelukast Yes 10mg Take 10 mg [facility] (SINGULAIR) 3-11 by mouth. ity of 10 mg 14:26: [place] tablet 11 [facility] Yes 10mg Take 10 mg [facility] (SINGULAIR) 3-11 by mouth. ity of 10 mg 14:26: [place] tablet 11 [facility] Yes 10mg Take 10 mg [facility] (SINGULAIR) 3-11 by mouth. ity of 10 mg 14:26: [place] tablet 11 [facility] Yes 10mg Take 10 mg [facility] (SINGULAIR) 3-11 by mouth. ity of 10 mg 14:26: [address] metFORMIN 2021- No [id number] 1000mg Take 1 [facility] 1,000 mg 07-14 [...] AFFECTED Branch AREA FOUR TIMES DAILY DIRECTED cyclobenzap 2021-0 Yes TAKE 1 Univ ers rine 10 mg 2-15 TABLET BY ity of tablet 00:00: MOUTH 00 THREE Medical TIMES Branch DAILY NEEDED FOR SPASMS Diclofenac 2-0 Yes APPLY 2 Univ ers Sodium 1 % 2-15 GRAMS ity of gel 00:00: TOPICALLY 00 TO THE Medical AFFECTED Branch AREA FOUR TIMES DAILY DIRECTED cyclobenzap 2-0 Yes TAKE 1 Univ ers rine 10 mg 2-15 TABLET BY ity of tablet 00:00: MOUTH 00 THREE Medical TIMES Branch DAILY NEEDED FOR SPASMS Diclofenac 2-0 Yes APPLY 2 Univ ers Sodium 1 % 2-15 GRAMS ity of gel 00:00: TOPICALLY 00 TO THE Medical AFFECTED Branch AREA FOUR TIMES DAILY DIRECTED cyclobenzap 2-0 Yes TAKE 1 Univ ers rine 10 mg 2-15 TABLET BY ity of tablet 00:00: MOUTH 00 THREE Medical TIMES Branch DAILY NEEDED FOR SPASMS Diclofenac 2-0 Yes APPLY 2 Univ ers Sodium 1 % 2-15 GRAMS ity of gel 00:00: TOPICALLY 00 TO THE Medical AFFECTED Branch AREA FOUR TIMES DAILY DIRECTED cyclobenzap 2-0 Yes TAKE 1 Univ ers rine 10 mg 2-15 TABLET BY ity of tablet 00:00: MOUTH 00 THREE Medical TIMES Branch DAILY NEEDED FOR SPASMS Diclofenac 2-0 Yes APPLY 2 Univ ers Sodium 1 % 2-15 GRAMS ity of gel 00:00: TOPICALLY 00 TO THE Medical AFFECTED Branch AREA FOUR TIMES DAILY DIRECTED cyclobenzap 2022-0 Yes TAKE 1 Univ ers rine 10 mg 2-15 TABLET BY ity of tablet 00:00: MOUTH [place] 00 THREE Medical TIMES Branch DAILY NEEDED FOR SPASMS Diclofenac 2-0 Yes APPLY 2 Univ ers Sodium 1 % 2-15 GRAMS ity of gel 00:00: TOPICALLY [place] 00 TO THE Medical AFFECTED Branch AREA FOUR TIMES DAILY DIRECTED cyclobenzap 2-0 Yes TAKE 1 Univ ers rine 10 mg 2-15 TABLET BY ity of tablet 00:00: MOUTH 00 THREE Medical TIMES Branch DAILY NEEDED FOR SPASMS Diclofenac 2-0 Yes APPLY 2 Univ ers Sodium 1 % 2-15 GRAMS ity of gel 00:00: TOPICALLY 00 TO THE Medical AFFECTED Branch AREA FOUR TIMES DAILY DIRECTED cyclobenzap 2021-0 Yes TAKE 1 Univ ers rine 10 mg 2-15 TABLET BY ity of tablet 00:00: MOUTH 00 THREE Medical TIMES Branch DAILY NEEDED FOR SPASMS Diclofenac 2021-0 Yes APPLY 2 Univ ers Sodium 1 % 2-15 GRAMS ity of gel 00:00: TOPICALLY 00 TO THE Medical AFFECTED Branch AREA FOUR TIMES DAILY DIRECTED cyclobenzap 2-0 Yes TAKE 1 Univ ers rine 10 mg 2-15 TABLET BY ity of tablet 00:00: MOUTH 00 THREE Medical TIMES Branch DAILY NEEDED FOR SPASMS Diclofenac 2021-0 Yes APPLY 2 Univ ers Sodium 1 % 2-15 GRAMS ity of gel 00:00: TOPICALLY 00 TO THE Medical AFFECTED Branch AREA FOUR TIMES DAILY DIRECTED cyclobenzap 2-0 Yes TAKE 1 Univ ers rine 10 mg 2-15 TABLET BY ity of tablet 00:00: MOUTH 00 THREE Medical TIMES Branch DAILY NEEDED FOR SPASMS Diclofenac 2-0 Yes APPLY 2 Univ ers Sodium 1 % 2-15 GRAMS ity of gel 00:00: TOPICALLY 00 TO THE Medical AFFECTED Branch AREA FOUR TIMES DAILY DIRECTED cyclobenzap 2-0 Yes TAKE 1 Univ ers rine 10 mg 2-15 TABLET BY ity of tablet 00:00: MOUTH 00 THREE Medical TIMES Branch DAILY NEEDED FOR SPASMS Diclofenac 2-0 Yes APPLY 2 Univ ers Sodium 1 % 2-15 GRAMS ity of gel 00:00: TOPICALLY 00 TO THE Medical AFFECTED Branch AREA FOUR TIMES DAILY DIRECTED cyclobenzap 2-0 Yes TAKE 1 Univ ers rine 10 mg 2-15 TABLET BY ity of tablet 00:00: MOUTH [place] 00 THREE Medical TIMES Branch DAILY NEEDED FOR SPASMS Diclofenac 2-0 Yes APPLY 2 Univ ers Sodium 1 % 2-15 GRAMS ity of gel 00:00: TOPICALLY [place] 00 TO THE Medical AFFECTED Branch AREA FOUR TIMES DAILY DIRECTED cyclobenzap 2-0 Yes TAKE 1 Univ ers rine 10 mg 2-15 TABLET BY ity of tablet 00:00: MOUTH [place] 00 THREE Medical TIMES Branch DAILY NEEDED FOR SPASMS Diclofenac 2-0 Yes APPLY 2 Univ ers Sodium 1 % 2-15 GRAMS ity of gel 00:00: TOPICALLY [place] 00 TO THE Medical AFFECTED Branch AREA FOUR TIMES DAILY DIRECTED cyclobenzap 2021-0 Yes TAKE 1 Univ ers rine 10 mg 2-15 TABLET BY ity of tablet 00:00: MOUTH [place] 00 THREE Medical TIMES Branch DAILY NEEDED FOR SPASMS Diclofenac 2021-0 Yes APPLY 2 Univ ers Sodium 1 % 2-15 GRAMS ity of gel 00:00: TOPICALLY [place] 00 TO THE Medical AFFECTED Branch AREA FOUR TIMES DAILY DIRECTED cyclobenzap 2-0 Yes TAKE 1 Univ ers rine 10 mg 2-15 TABLET BY ity of tablet 00:00: MOUTH [place] 00 THREE Medical TIMES Branch DAILY NEEDED FOR SPASMS Diclofenac 2021-0 Yes APPLY 2 Univ ers Sodium 1 % 2-15 GRAMS ity of gel 00:00: TOPICALLY [place] 00 TO THE Medical AFFECTED Branch AREA FOUR TIMES DAILY DIRECTED cyclobenzap 2-0 Yes TAKE 1 Univ ers rine 10 mg 2-15 TABLET BY ity of tablet 00:00: MOUTH [place] 00 THREE Medical TIMES Branch DAILY NEEDED FOR SPASMS Diclofenac 2-0 Yes APPLY 2 Univ ers Sodium 1 % 2-15 GRAMS ity of gel 00:00: TOPICALLY [place] 00 TO THE Medical AFFECTED Branch AREA FOUR TIMES DAILY DIRECTED pregabalin 2022-0 2023- No TAKE 1 Univ ers 200 mg 2-15 -19 CAPSULE BY ity of capsule 00:00: 00:00 MOUTH [place] 00 :00 TWICE Medical DAILY Branch DIRECTED pregabalin 2022-0 3- No TAKE 1 Univ ers 200 mg 2-15 -19 CAPSULE BY ity of capsule 00:00: 00:00 MOUTH [place] 00 :00 TWICE Medical DAILY Branch DIRECTED pregabalin 2022-0 3- No TAKE 1 Univ ers 200 mg 2-15 - CAPSULE BY ity of capsule 00:00: 00:00 MOUTH [place] 00 :00 TWICE Medical DAILY Branch DIRECTED pregabalin 2021-0 3- No TAKE 1 Univ ers 200 mg 2-15 - CAPSULE BY ity of capsule 00:00: 00:00 MOUTH [place] 00 :00 TWICE Medical DAILY Branch DIRECTED albuterol 2018-05 Yes [id number] 2{puff} Inhale 2 [facility] (PROAIR 2-17 Puffs ity of HFA) 90 00:00: every 6 [place] mcg/actuati 00 (six) Medical on inhaler hours as Branc h needed for Wheezing, Shortness of Breath or Chest tightness. albuterol 2018-05 Yes [id number] 2{puff} Inhale 2 [facility] (PROAIR 2-17 Puffs ity of HFA) 90 00:00: every 6 [place] mcg/actuati 00 (six) Medical on inhaler hours as Branc h needed for Wheezing, Shortness of Breath or Chest tightness. albuterol 2018-05 Yes [id number] 2{puff} Inhale 2 [facility] (PROAIR 2-17 Puffs ity of HFA) 90 00:00: every 6 [place] mcg/actuati 00 (six) Medical on inhaler hours as Branc h needed for Wheezing, Shortness of Breath or Chest tightness. albuterol 2018-05 Yes [id number] 2{puff} Inhale 2 [facility] (PROAIR 2-17 Puffs ity of HFA) 90 00:00: every 6 [place] mcg/actuati 00 (six) Medical on inhaler hours as Branc h needed for Wheezing, Shortness of Breath or Chest tightness. albuterol 2018-05 Yes [id number] 2{puff} Inhale 2 [facility] (PROAIR 2-17 Puffs ity of HFA) 90 00:00: every 6 [place] mcg/actuati 00 (six) Medical on inhaler hours as Branc h needed for Wheezing, Shortness of Breath or Chest tightness. albuterol 2018-05 Yes [id number] 2{puff} Inhale 2 [facility] (PROAIR 2-17 Puffs ity of HFA) 90 00:00: every 6 [place] mcg/actuati 00 (six) Medical on inhaler hours as Branc h needed for Wheezing, Shortness of Breath or Chest tightness. albuterol 2018-05 Yes [id number] 2{puff} Inhale 2 [facility] (PROAIR 2-17 Puffs ity of HFA) 90 00:00: every 6 [place] mcg/actuati 00 (six) Medical on inhaler hours as Branc h needed for Wheezing, Shortness of Breath or Chest tightness. albuterol 2018-05 Yes [id number] 2{puff} Inhale 2 [facility] (PROAIR 2-17 Puffs ity of HFA) 90 00:00: every 6 [place] mcg/actuati 00 (six) Medical on inhaler hours as Branc h needed for Wheezing, Shortness of Breath or Chest tightness. albuterol 2018-05 Yes [id number] 2{puff} Inhale 2 [facility] (PROAIR 2-17 Puffs ity of HFA) 90 00:00: every 6 [place] mcg/actuati 00 (six) Medical on inhaler hours as Branc h needed for Wheezing, Shortness of Breath or Chest tightness. albuterol 2018-05 Yes [id number] 2{puff} Inhale 2 [facility] (PROAIR 2-17 Puffs ity of HFA) 90 00:00: every 6 [place] mcg/actuati 00 (six) Medical on inhaler hours as Branc h needed for Wheezing, Shortness of Breath or Chest tightness. albuterol 2018-05 Yes [id number] 2{puff} Inhale 2 [facility] (PROAIR 2-17 Puffs ity of HFA) 90 00:00: every 6 [place] mcg/actuati 00 (six) Medical on inhaler hours as Branc h needed for Wheezing, Shortness of Breath or Chest tightness. albuterol 2018-05 Yes [id number] 2{puff} Inhale 2 [facility] (PROAIR 2-17 Puffs ity of HFA) 90 00:00: every 6 [place] mcg/actuati 00 (six) Medical on inhaler hours as Branc h needed for Wheezing, Shortness of Breath or Chest tightness. albuterol 2018-05 Yes [id number] 2{puff} Inhale 2 [facility] (PROAIR 2-17 Puffs ity of HFA) 90 00:00: every 6 [place] mcg/actuati 00 (six) Medical on inhaler hours as Branc h needed for Wheezing, Shortness of Breath or Chest tightness. albuterol 2018-05 Yes [id number] 2{puff} Inhale 2 [facility] (PROAIR 2-17 Puffs ity of HFA) 90 00:00: every 6 [place] mcg/actuati 00 (six) Medical on inhaler hours as Branc h needed for Wheezing, Shortness of Breath or Chest tightness. albuterol 2018-05 Yes [id number] 2{puff} Inhale 2 [facility] (PROAIR 2-17 Puffs ity of HFA) 90 00:00: every 6 [place] mcg/actuati 00 (six) Medical on inhaler hours as Branc h needed for Wheezing, Shortness of Breath or Chest tightness. albuterol 2018-05 Yes [id number] 2{puff} Inhale 2 [facility] (PROAIR 2-17 Puffs ity of HFA) 90 00:00: every 6 [place] mcg/actuati 00 (six) Medical on inhaler hours as Branc h needed for Wheezing, Shortness of Breath or Chest tightness. albuterol 2018-05 Yes [id number] 2{puff} Inhale 2 [facility] (PROAIR 2-17 Puffs ity of HFA) 90 00:00: every 6 [place] mcg/actuati 00 (six) Medical on inhaler hours as Branc h needed for Wheezing, Shortness of Breath or Chest tightness. albuterol 2018-05 Yes [id number] 2{puff} Inhale 2 [facility] (PROAIR 2-17 Puffs ity of HFA) 90 00:00: every 6 [place] mcg/actuati 00 (six) Medical on inhaler hours as Branc h needed for Wheezing, Shortness of Breath or Chest tightness. albuterol 2018-05 Yes [id number] 2{puff} Inhale 2 [facility] (PROAIR 2-17 Puffs ity of HFA) 90 00:00: every 6 [place] mcg/actuati 00 (six) Medical on inhaler hours as Branc h needed for Wheezing, Shortness of Breath or Chest tightness. albuterol 2018-05 Yes [id number] 2{puff} Inhale 2 [facility] (PROAIR 2-17 Puffs ity of HFA) 90 00:00: every 6 [place] mcg/actuati 00 (six) Medical on inhaler hours as Branc h needed for Wheezing, Shortness of Breath or Chest tightness. albuterol 2018-05- No [id number] 2{puff} Inhale 2 [facility] (PROAIR 2-17 11-22 Puffs ity of HFA) 90 00:00: 00:00 every 6 [place] mcg/actuati 00 :00 (six) Medical on inhaler hours as Branc h needed for Wheezing, Shortness of Breath or Chest tightness. albuterol 2018-05- No [id number] 2{puff} Inhale 2 [facility] (PROAIR 2-17 11-22 Puffs ity of HFA) 90 00:00: 00:00 every 6 [place] mcg/actuati 00 :00 (six) Medical on inhaler hours as Branc h needed for Wheezing, Shortness of Breath or Chest tightness. albuterol 2018-05- No [id number] 2{puff} Inhale 2 [facility] (PROAIR 2-17 11-22 Puffs ity of HFA) 90 00:00: 00:00 every 6 [place] mcg/actuati 00 :00 (six) Medical on inhaler hours as Branc h needed for Wheezing, Shortness of Breath or Chest tightness. albuterol 2018-05- No [id number] 2{puff} Inhale 2 [facility] (PROAIR 2-17 11-22 Puffs ity of HFA) 90 00:00: 00:00 every 6 [place] mcg/actuati 00 :00 (six) Medical on inhaler hours as Branc h needed for Wheezing, Shortness of Breath or Chest tightness. albuterol 2018-05- No [id number] 2{puff} Inhale 2 [facility] (PROAIR 2-17 11-22 [...] l times a day with meals. sertraline 2018-0 Yes 50mg QD Take 50 mg M [...] ) 1,000 mg 08:46: mouth 2 Hosp p[facility] tablet 09 (two) l times a day [...] rosuvastati Yes 10mg QD Take 10 mg [facility] ([facility]) 2-[address] 10 MG 08:46: nightly. Hospita tablet 09 l empaglifloz Yes 10mg QD Take 10 mg [facility] (JARDIANCE) 08:46: every Hospi ta 10 mg 09 morning. l tablet tablet amLODIPine Yes 5mg QD Take 5 mg [facility] (NORVASC) 5 2-[address] mg tablet 08:46: daily. Hospit a 09 l LYRICA 200 Yes 1{tbl} Q.[id number] Take 1 [facility] mg capsule 5-[id number] 00:00: 3D mouth 3 [facility]ospita 00 (three) l times a day. LYRICA 200 Yes 1{tbl} Q.[id number] Take 1 [facility] capsule 5-[id number] 00:00: 3D mouth 3 [facility]osp[facility] 00 (three) l times a day. LYRICA 200 Yes 1{tbl} Q.[id number] Take 1 [facility] capsule 5-[id number] 00:00: 3D mouth 3 [facility]osp[facility] 00 (three) l times a day. LYRICA 200 Yes 1{tbl} Q.[id number] Take 1 [facility] capsule 5-[id number] 00:00: 3D mouth 3 [facility]osp[facility] 00 (three) l times a day. LYRICA 200 Yes 1{tbl} Q.[id number] Take 1 [facility] 5-[id number] 00:00: 3D mouth 3 [facility]osp[facility] 00 (three) l times a day. LYRICA 200 Yes 1{tbl} Q.[id number] Take 1 [facility] capsule 5-[id number] 00:00: 3D mouth 3 [facility]osp[facility] 00 (three) l times a day. LYRICA 200 Yes 1{tbl} Q.[id number] Take 1 [facility] capsule 5-[id number] 00:00: 3D mouth 3 [facility]osp[facility] 00 (three) l times a day. LYRICA 200 Yes 1{tbl} Q.[id number] Take 1 [facility] capsule 5-[id number] 00:00: 3D mouth 3 [facility]osp[facility] 00 (three) l times a day. LYRICA 200 Yes 1{tbl} Q.[id number] Take 1 [facility] 5-[id number] 00:00: 3D mouth 3 [facility]osp[facility] 00 (three) l times a day. LYRICA 200 Yes 1{tbl} Q.[id number] Take 1 [facility] 5-[id number] 00:00: 3D mouth 3 [facility]ospita 00 (three) l times a day. LYRICA 200 Yes 1{tbl} Q.[id number] Take 1 [facility] capsule 5-[id number] 00:00: 3D mouth 3 [facility]ospita 00 (three) l times a day. LYRICA 200 Yes 1{tbl} Q.[id number] Take 1 [facility] capsule 5-[id number] 00:00: 3D mouth 3 [facility]ospita 00 (three) l times a day. LYRICA 200 Yes 1{tbl} Q.[id number] Take 1 [facility] capsule 5-[id number] 00:00: 3D mouth 3 [facility]ospita 00 (three) l times a day. LYRICA 200 Yes 1{tbl} Q.[id number] Take 1 [facility] capsule 5-[id number] 00:00: 3D mouth 3 [facility]ospita 00 (three) l times a day. LYRICA 200 Yes 1{tbl} Q.[id number] Take 1 [facility] capsule 5-[id number] 00:00: 3D mouth 3 [facility]ospita 00 (three) l times a day. PredniSONE PredniSONE Yes ZHEN TAPER [place] 20 MG Oral 20 MG Oral 1-18 KATELYN [facility] Tablet Tablet 00:00: M.D. ns - [...] l ACCU-CHEK 2016- Yes TK [facility] GUIDE 2- DIRECTED st GLUCOSE 00:00: Hospita METER misc [...] l ACCU-CHEK 2016- Yes TEST TID Meth criag FASTCLIX 2-04 st misc 00:00: DIRECTED Hospita [...] Status Comments Sour e Immunization Name Name Pneumococcal 20 2022-04-22 Completed [facility] y of Conjugate, PCV20 00:00:00 [facility] dical (Prevnar 20) Branch Zoster Vaccine 2022-04-22 Completed [facility] 00:00:00 [facility] Pneumococcal 20 2022-04-22 Completed Universit y of Conjugate, PCV20 00:00:00 [facility] dical (Prevnar 20) Branch Zoster Vaccine 2022-04-22 Completed Combat Stroke 00:00:00 [facility] Pneumococcal 20 2022-04-22 Completed Universit y of Conjugate, PCV20 00:00:00 [facility] dical (Prevnar 20) Branch Zoster Vaccine 2022-04-22 Completed University of Recombinant 00:00:00 [facility] Pneumococcal 20 2022-04-22 Completed Universit y of Conjugate, PCV20 00:00:00 [facility] dical (Prevnar 20) Branch Zoster Vaccine 2022-04-22 Completed University of Recombinant 00:00:00 [facility] Pneumococcal 20 2022-04-22 Completed Universit y of Conjugate, PCV20 00:00:00 [facility] dical (Prevnar 20) Branch Zoster Vaccine 2022-04-22 Completed University of Recombinant 00:00:00 [facility] Pneumococcal 20 2022-04-22 Completed Universit y of Conjugate, PCV20 00:00:00 [facility] dical (Prevnar 20) Branch Zoster Vaccine 2022-04-22 Completed University of Recombinant 00:00:00 [facility] Pneumococcal 20 2022-04-22 Completed Universit y of Conjugate, PCV20 00:00:00 [facility] dical (Prevnar 20) Branch Zoster Vaccine 2022-04-22 Completed University of Recombinant 00:00:00 [facility] Pneumococcal 20 2022-04-22 Completed Universit y of Conjugate, PCV20 00:00:00 [facility] dical (Prevnar 20) Branch Zoster Vaccine 2022-04-22 Completed University of Recombinant 00:00:00 [facility] Pneumococcal 20 2022-04-22 Completed Universit y of Conjugate, PCV20 00:00:00 [facility] dical (Prevnar 20) Branch Zoster Vaccine 2022-04-22 Completed University of Recombinant 00:00:00 [facility] Pneumococcal 20 2022-04-22 Completed Universit y of Conjugate, PCV20 00:00:00 [facility] dical (Prevnar 20) Branch Zoster Vaccine 2022-04-22 Completed University of Recombinant 00:00:00 [facility] Pneumococcal 20 2022-04-22 Completed Universit y of Conjugate, PCV20 00:00:00 [facility] dical (Prevnar 20) Branch Zoster Vaccine 2022-04-22 Completed University of Recombinant 00:00:00 [facility] Pneumococcal 20 2022-04-22 Completed Universit y of Conjugate, PCV20 00:00:00 [facility] dical (Prevnar 20) Branch Zoster Vaccine 2022-04-22 Completed University of Recombinant 00:00:00 [facility] Pneumococcal 20 2022-04-22 Completed Universit y of Conjugate, PCV20 00:00:00 [facility] dical (Prevnar 20) Branch Zoster Vaccine 2022-04-22 Completed University of Recombinant 00:00:00 [facility] Pneumococcal 20 2022-04-22 Completed Universit y of Conjugate, PCV20 00:00:00 [place] [facility] dical (Prevnar 20) Branch Zoster Vaccine 2022-04-22 Completed University of Recombinant 00:00:00 [facility] Pneumococcal 20 2022-04-22 Completed Universit y of Conjugate, PCV20 00:00:00 [facility] dical (Prevnar 20) Branch Zoster Vaccine 2022-04-22 Completed University of Recombinant 00:00:00 [facility] Pneumococcal 20 2022-04-22 Completed Universit y of Conjugate, PCV20 00:00:00 [facility] dical (Prevnar 20) Branch Zoster Vaccine 2022-04-22 Completed University of Recombinant 00:00:00 [facility] Pneumococcal 20 2022-04-22 Completed Universit y of Conjugate, PCV20 00:00:00 [facility] dical (Prevnar 20) Branch Zoster Vaccine 2022-04-22 Completed University of Recombinant 00:00:00 [facility] Pneumococcal 20 2022-04-22 Completed Universit y of Conjugate, PCV20 00:00:00 [facility] dical (Prevnar 20) Branch Zoster Vaccine 2022-04-22 Completed University of Recombinant 00:00:00 [facility] Pneumococcal 20 2022-04-22 Completed Universit y of Conjugate, PCV20 00:00:00 [facility] dical (Prevnar 20) Branch Zoster Vaccine 2022-04-22 Completed University of Recombinant 00:00:00 [facility] Pneumococcal 20 2022-04-22 Completed Universit y of Conjugate, PCV20 00:00:00 [facility] dical (Prevnar 20) Branch Zoster Vaccine 2022-04-22 Completed University of Recombinant 00:00:00 [facility] Pneumococcal 20 2022-04-22 Completed Universit y of Conjugate, PCV20 00:00:00 [facility] dical (Prevnar 20) Branch Zoster Vaccine 2022-04-22 Completed University of Recombinant 00:00:00 [facility] Pneumococcal 20 2022-04-22 Completed Universit y of Conjugate, PCV20 00:00:00 [facility] dical (Prevnar 20) Branch Zoster Vaccine 2022-04-22 Completed University of Recombinant 00:00:00 [facility] Pneumococcal 20 2022-04-22 Completed Universit y of Conjugate, PCV20 00:00:00 [facility] dical (Prevnar 20) Branch Zoster Vaccine 2022-04-22 Completed University of Recombinant 00:00:00 [facility] Pneumococcal 20 2022-04-22 Completed Universit y of Conjugate, PCV20 00:00:00 [facility] dical (Prevnar 20) Branch Zoster Vaccine 2022-04-22 Completed University of Recombinant 00:00:00 [facility] Pneumococcal 20 2022-04-22 Completed Universit y of Conjugate, PCV20 00:00:00 [facility] dical (Prevnar 20) Branch Zoster Vaccine 2022-04-22 Completed University of Recombinant 00:00:00 [facility] Pneumococcal 20 2022-04-22 Completed Universit y of Conjugate, PCV20 00:00:00 [facility] dical (Prevnar 20) Branch Zoster Vaccine 2022-04-22 Completed University of Recombinant 00:00:00 [facility] Pneumococcal 20 2022-04-22 Completed Universit y of Conjugate, PCV20 00:00:00 [facility] dical (Prevnar 20) Branch Zoster Vaccine 2022-04-22 Completed University of Recombinant 00:00:00 [facility] Pneumococcal 20 2022-04-22 Completed Universit y of Conjugate, PCV20 00:00:00 [facility] dical (Prevnar 20) Branch Zoster Vaccine 2022-04-22 Completed University of Recombinant 00:00:00 [facility] Pneumococcal 20 2022-04-22 Completed Universit y of Conjugate, PCV20 00:00:00 [facility] dical (Prevnar 20) Branch Zoster Vaccine 2022-04-22 Completed University of Recombinant 00:00:00 [facility] Pneumococcal 20 2022-04-22 Completed Universit y of Conjugate, PCV20 00:00:00 [facility] dical (Prevnar 20) Branch Zoster Vaccine 2022-04-22 Completed University of Recombinant 00:00:00 [facility] Pneumococcal 20 2022-04-22 Completed Universit y of Conjugate, PCV20 00:00:00 [facility] dical (Prevnar 20) Branch Zoster Vaccine 2022-04-22 Completed University of Recombinant 00:00:00 [facility] Pneumococcal 20 2022-04-22 Completed Universit y of Conjugate, PCV20 00:00:00 [facility] dical (Prevnar 20) Branch Zoster Vaccine 2022-04-22 Completed University of Recombinant 00:00:00 [facility] Pneumococcal 20 2022-04-22 Completed Universit y of Conjugate, PCV20 00:00:00 [place] [facility] dical (Prevnar 20) Branch Zoster Vaccine 2022-04-22 Completed University of Recombinant 00:00:00 [facility] Pneumococcal 20 2022-04-22 Completed Universit y of Conjugate, PCV20 00:00:00 [facility] dical (Prevnar 20) Branch Zoster Vaccine 2022-04-22 Completed University of Recombinant 00:00:00 [facility] Pneumococcal 20 2022-04-22 Completed Universit y of Conjugate, PCV20 00:00:00 [facility] dical (Prevnar 20) Branch Zoster Vaccine 2022-04-22 Completed University of Recombinant 00:00:00 [facility] Pneumococcal 20 2022-04-22 Completed Universit y of Conjugate, PCV20 00:00:00 [facility] dical (Prevnar 20) Branch Zoster Vaccine 2022-04-22 Completed University of Recombinant 00:00:00 [facility] Pneumococcal 20 2022-04-22 Completed Universit y of Conjugate, PCV20 00:00:00 [facility] dical (Prevnar 20) Branch Zoster Vaccine 2022-04-22 Completed University of Recombinant 00:00:00 [facility] Pneumococcal 20 2022-04-22 Completed Universit y of Conjugate, PCV20 00:00:00 [facility] dical (Prevnar 20) Branch Zoster Vaccine 2022-04-22 Completed University of Recombinant 00:00:00 [facility] Pneumococcal 20 2022-04-22 Completed Universit y of Conjugate, PCV20 00:00:00 [facility] dical (Prevnar 20) Branch Zoster Vaccine 2022-04-22 Completed University of Recombinant 00:00:00 [facility] Pneumococcal 20 2022-04-22 Completed Universit y of Conjugate, PCV20 00:00:00 [place] [facility] dical (Prevnar 20) Branch Zoster Vaccine 2022-04-22 Completed University of Recombinant 00:00:00 [facility] Pneumococcal 20 2022-04-22 Completed Universit y of Conjugate, PCV20 00:00:00 [facility] dical (Prevnar 20) Branch Zoster Vaccine 2022-04-22 Completed University of Recombinant 00:00:00 [facility] Pneumococcal 20 2022-04-22 Completed Universit y of Conjugate, PCV20 00:00:00 [facility] dical (Prevnar 20) Branch Zoster Vaccine 2022-04-22 Completed University of Recombinant 00:00:00 [facility] Pneumococcal 20 2022-04-22 Completed Universit y of Conjugate, PCV20 00:00:00 [facility] dical (Prevnar 20) Branch Zoster Vaccine 2022-04-22 Completed University of Recombinant 00:00:00 [facility] Pneumococcal 20 2022-04-22 Completed Universit y of Conjugate, PCV20 00:00:00 [facility] dical (Prevnar 20) Branch Zoster Vaccine 2022-04-22 Completed University of Recombinant 00:00:00 [facility] Pneumococcal 20 2022-04-22 Completed Universit y of Conjugate, PCV20 00:00:00 [facility] dical (Prevnar 20) Branch Zoster Vaccine 2022-04-22 Completed University of Recombinant 00:00:00 [facility] Pneumococcal 20 2022-04-22 Completed Universit y of Conjugate, PCV20 00:00:00 [facility] dical (Prevnar 20) Branch Zoster Vaccine 2022-04-22 Completed University of Recombinant 00:00:00 [facility] Pneumococcal 20 2022-04-22 Completed Universit y of Conjugate, PCV20 00:00:00 [facility] dical (Prevnar 20) Branch Zoster Vaccine 2022-04-22 Completed University of Recombinant 00:00:00 [facility] Pneumococcal 20 2022-04-22 Completed Universit y of Conjugate, PCV20 00:00:00 [facility] dical (Prevnar 20) Branch Zoster Vaccine 2022-04-22 Completed University of Recombinant 00:00:00 [facility] Pneumococcal 20 2022-04-22 Completed Universit y of Conjugate, PCV20 00:00:00 [facility] dical (Prevnar 20) Branch Zoster Vaccine 2022-04-22 Completed University of Recombinant 00:00:00 [facility] Pneumococcal 20 2022-04-22 Completed Universit y of Conjugate, PCV20 00:00:00 [facility] dical (Prevnar 20) Branch Zoster Vaccine 2022-04-22 Completed University of Recombinant 00:00:00 [facility] Pneumococcal 20 2022-04-22 Completed Universit y of Conjugate, PCV20 00:00:00 [facility] dical (Prevnar 20) Branch Zoster Vaccine 2022-04-22 Completed University of Recombinant 00:00:00 [facility] Pneumococcal 20 2022-04-22 Completed Universit y of Conjugate, PCV20 00:00:00 [facility] dical (Prevnar 20) Branch Zoster Vaccine 2022-04-22 Completed University of Recombinant 00:00:00 [facility] Pneumococcal 20 2022-04-22 Completed Universit y of Conjugate, PCV20 00:00:00 [facility] dical (Prevnar 20) Branch Zoster Vaccine 2022-04-22 Completed University of Recombinant 00:00:00 [facility] Influenza Virus 2022-02-02 Completed Universit y of Vaccine Quad IM, 00:00:00 [facility] dical Preserv and ABX Branch Free 6 MO-64 YRS Influenza Virus 2022-02-02 Completed Universit y of Vaccine [facility] IM, 00:00:00 [facility] dical Preserv and ABX Branch Free 6 MO-64 YRS Influenza Virus 2022-02-02 Completed [facility]it y of Vaccine [facility] IM, 00:00:00 [facility] dical Preserv and ABX Branch Free 6 MO-64 YRS Influenza Virus 2022-02-02 Completed [facility]it y of Vaccine [facility] IM, 00:00:00 [facility] dical Preserv and ABX Branch Free 6 MO-64 YRS Influenza Virus 2022-02-02 Completed [facility]it y of Vaccine [facility] IM, 00:00:00 [facility] dical Preserv and ABX Branch Free 6 MO-64 YRS Influenza Virus 2022-02-02 Completed [facility]it y of Vaccine [facility] IM, 00:00:00 [facility] dical Preserv and ABX Branch Free 6 MO-64 YRS Influenza Virus 2022-02-02 Completed [facility]it y of Vaccine Quad IM, 00:00:00 [place] [facility] dical Preserv and ABX Branch Free 6 MO-64 YRS Influenza Virus 2022-02-02 Completed [facility]it y of Vaccine Quad IM, 00:00:00 [place] [facility]ical Preserv and ABX Branch Free 6 MO-64 YRS Influenza Virus 2022-02-02 Completed [facility] y of Vaccine Quad IM, 00:00:00 [place] [facility] Preserv and ABX Branch Free 6 MO-64 YRS Influenza Virus 2022-02-02 Completed [facility] y of Vaccine [facility] IM, 00:00:00 [facility] dical Preserv and ABX Branch Free 6 [...] Universit y of Vaccine [facility] IM, 00:00:00 [place] [facility] Preserv and ABX Branch Free 6 MO-64 YRS Influenza Virus 2022-02-02 Completed [facility]it y of Vaccine [facility] IM, 00:00:00 [place] [facility] Preserv and ABX Branch Free 6 MO-64 YRS Influenza Virus 2022-02-02 Completed [facility]it y of Vaccine Quad IM, 00:00:00 [place] [facility] dical Preserv and ABX Branch Free 6 MO-64 YRS Influenza Virus 2022-02-02 Completed [facility]it y of Vaccine Quad IM, 00:00:00 [place] [facility] Preserv and ABX Branch Free 6 MO-64 YRS Influenza Virus 2022-02-02 Completed [facility] y of Vaccine [facility] IM, 00:00:00 [place] [facility] Preserv and ABX Branch Free 6 MO-64 YRS Influenza Virus 2022-02-02 Completed [facility] y of Vaccine [facility] IM, 00:00:00 [place] [facility] Preserv and ABX Branch Free 6 MO-64 YRS Influenza Virus 2022-02-02 Completed [facility] y of Vaccine Quad IM, 00:00:00 [place] [facility] Preserv and ABX Branch Free 6 MO-64 YRS Influenza Virus 2022-02-02 Completed [facility] y of Vaccine Quad IM, 00:00:00 [place] [facility] Preserv and ABX Branch Free 6 MO-64 YRS Influenza Virus 2022-02-02 Completed [facility] y of Vaccine Quad IM, 00:00:00 [place] [facility] Preserv and ABX Branch Free 6 MO-64 YRS Influenza Virus 2022-02-02 Completed [facility] y of Vaccine Quad IM, 00:00:00 [place] [facility] dical Preserv and ABX Branch Free 6 MO-64 YRS Influenza Virus 2022-02-02 Completed [facility]it y [facility], 00:00:00 [place] [facility] Preserv and ABX Branch Free 6 MO-64 YRS Influenza Virus 2022-02-02 Completed [facility], 00:00:00 [place] [facility] Preserv and ABX Branch Free 6 MO-64 YRS Influenza Virus 2022-02-02 Completed [facility], 00:00:00 [place] [facility] Preserv and ABX Branch Free [...] [facility]it y of [facility], 00:00:00 [place] [facility] Preserv and ABX Branch Free 6 MO-64 YRS Influenza Virus 2022-02-02 Completed [facility], 00:00:00 [place] [facility] Preserv and ABX Branch Free 6 MO-64 YRS Influenza Virus 2022-02-02 Completed [facility]it y of Vaccine [facility], 00:00:00 [facility] dical Preserv and ABX Branch Free 6 MO-64 YRS Influenza Virus 2021-04-12 Completed Universit y of Vaccine 00:00:00 [facility] Influenza Virus 2021-04-12 Completed Universit y of Vaccine 00:00:00 [facility] Influenza Virus 2021-04-12 Completed Universit y of Vaccine 00:00:00 [facility] Influenza Virus 2021-04-12 Completed Universit y of Vaccine 00:00:00 [facility] Influenza Virus 2021-04-12 Completed Universit y of Vaccine 00:00:00 [facility] Influenza Virus 2021-04-12 Completed Universit y of Vaccine 00:00:00 [facility] Influenza Virus 2021-04-12 Completed Universit y of Vaccine 00:00:00 [facility] Influenza Virus 2021-04-12 Completed Universit y of Vaccine 00:00:00 [facility] Influenza Virus 2021-04-12 Completed Universit y of Vaccine 00:00:00 [facility] Influenza Virus 2021-04-12 Completed Universit y of Vaccine 00:00:00 [facility] Influenza Virus 2021-04-12 Completed Universit y of Vaccine 00:00:00 [facility] Influenza Virus 2021-04-12 Completed Universit y of Vaccine 00:00:00 [facility] Influenza Virus 2021-04-12 Completed Universit y of Vaccine 00:00:00 [facility] Influenza Virus 2021-04-12 Completed Universit y of Vaccine 00:00:00 [facility] Influenza Virus 2021-04-12 Completed Universit y of Vaccine 00:00:00 [facility] Influenza Virus 2021-04-12 Completed Universit y of Vaccine 00:00:00 [facility] Influenza Virus 2021-04-12 Completed Universit y of Vaccine 00:00:00 [facility] Influenza Virus 2021-04-12 Completed [facility]it y of Vaccine 00:00:00 [facility] Influenza Virus 2021-04-12 Completed Universit y of Vaccine 00:00:00 [facility] Influenza Virus 2021-04-12 Completed Universit y of Vaccine 00:00:00 [facility] Influenza Virus 2021-04-12 Completed Universit y of Vaccine 00:00:00 [facility] Influenza Virus 2021-04-12 Completed Universit y of Vaccine 00:00:00 [facility] Influenza Virus 2021-04-12 Completed Universit y of Vaccine 00:00:00 [facility] Influenza Virus 2021-04-12 Completed Universit y of Vaccine 00:00:00 [facility] Influenza Virus 2021-04-12 Completed Universit y of Vaccine 00:00:00 [facility] Influenza Virus 2021-04-12 Completed Universit y of Vaccine 00:00:00 [facility] Influenza Virus 2021-04-12 Completed Universit y of Vaccine 00:00:00 [facility] Influenza Virus 2021-04-12 Completed Universit y of Vaccine 00:00:00 [facility] Influenza Virus 2021-04-12 Completed Universit y of Vaccine 00:00:00 [facility] Influenza Virus 2021-04-12 Completed Universit y of Vaccine 00:00:00 [facility] Influenza Virus 2021-04-12 Completed Universit y of Vaccine 00:00:00 [facility] Influenza Virus 2021-04-12 Completed Universit y of Vaccine 00:00:00 [facility] Influenza Virus 2021-04-12 Completed Universit y of Vaccine 00:00:00 [facility] Influenza Virus 2021-04-12 Completed Universit y of Vaccine 00:00:00 [facility] Influenza Virus 2021-04-12 Completed Universit y of Vaccine 00:00:00 [facility] Influenza Virus 2021-04-12 Completed Universit y of Vaccine 00:00:00 [facility] Influenza Virus 2021-04-12 Completed Universit y of Vaccine 00:00:00 [facility] Influenza Virus 2021-04-12 Completed Universit y of Vaccine 00:00:00 [facility] Influenza Virus 2021-04-12 Completed Universit y of Vaccine 00:00:00 [facility] Influenza Virus 2021-04-12 Completed Universit y of Vaccine 00:00:00 [facility] Influenza Virus 2021-04-12 Completed Universit y of Vaccine 00:00:00 [facility] Influenza Virus 2021-04-12 Completed Universit y of Vaccine 00:00:00 [facility] Influenza Virus 2021-04-12 Completed Universit y of Vaccine 00:00:00 [facility] Influenza Virus 2021-04-12 Completed Universit y of Vaccine 00:00:00 [facility] Influenza Virus 2021-04-12 Completed Universit y of Vaccine 00:00:00 [facility] Influenza Virus 2021-04-12 Completed Universit y of Vaccine 00:00:00 [facility] Influenza Virus 2021-04-12 Completed Universit y of Vaccine 00:00:00 [facility] Influenza Virus 2021-04-12 Completed [facility]it y of Vaccine 00:00:00 [facility] Influenza Virus 2021-04-12 Completed Universit y of Vaccine 00:00:00 [facility] Influenza Virus 2021-04-12 Completed Universit y of Vaccine 00:00:00 [facility] Influenza Virus 2021-04-12 Completed Universit y of Vaccine 00:00:00 [facility] Influenza Virus 2021-04-12 Completed Universit y of Vaccine 00:00:00 [facility] Influenza Virus 2021-04-12 Completed Universit y of Vaccine 00:00:00 [facility] Influenza Virus 2021-04-12 Completed [facility]it y of Vaccine 00:00:00 [facility] Influenza Virus 2021-04-12 Completed Universit y of Vaccine 00:00:00 [facility] Influenza Virus 2021-04-12 Completed [facility]it y of Vaccine 00:00:00 [facility] Influenza Virus 2021-04-12 Completed [facility]it y of Vaccine 00:00:00 [facility] Influenza Virus 2021-04-12 Completed [facility]it y of Vaccine 00:00:00 [facility] Influenza Virus 2021-04-12 Completed [facility]it y of Vaccine 00:00:00 [facility] Influenza Virus 2021-04-12 Completed [facility]it y of Vaccine 00:00:00 [facility] Influenza Virus 2021-04-12 Completed [facility]it y of Vaccine 00:00:00 [facility] Influenza Virus 2021-04-12 Completed [facility]it y of Vaccine 00:00:00 [facility] Influenza Virus 2021-04-12 Completed [facility]it y of Vaccine 00:00:00 [facility] Influenza Virus 2021-04-12 Completed [facility]it y of Vaccine 00:00:00 [facility] Influenza Virus 2021-04-12 Completed [facility]it y of Vaccine 00:00:00 [facility] Influenza Virus 2021-04-12 Completed [facility]it y of Vaccine 00:00:00 [facility] Influenza Virus 2021-04-12 Completed [facility]it y of Vaccine 00:00:00 [facility] Influenza Virus 2021-04-12 Completed [facility]it y of Vaccine 00:00:00 [facility] Influenza Virus 2021-04-12 Completed [facility]it y of Vaccine 00:00:00 [facility] Influenza Virus 2021-04-12 Completed [facility]it y of Vaccine 00:00:00 [facility] Influenza Virus 2021-04-12 Completed [facility]it y of Vaccine 00:00:00 [facility] Influenza Virus 2021-04-12 Completed [facility]it y of Vaccine 00:00:00 [facility] Influenza Virus 2021-04-12 Completed [facility]it y of Vaccine 00:00:00 [facility] Influenza Virus 2021-04-12 Completed [facility]it y of Vaccine 00:00:00 [facility] Influenza Virus 2021-04-12 Completed [facility]it y of Vaccine 00:00:00 [facility] Influenza Virus 2021-04-12 Completed [facility]it y of Vaccine 00:00:00 [facility] Influenza Virus 2021-04-12 Completed [facility]it y of Vaccine 00:00:00 [facility] Influenza Virus 2021-04-12 Completed Universit y of Vaccine 00:00:00 [facility] Influenza Virus 2021-04-12 Completed Universit y of Vaccine 00:00:00 [facility] Influenza Virus 2021-04-12 Completed Universit y of Vaccine 00:00:00 [facility] Influenza Virus 2021-04-12 Completed Universit y of Vaccine 00:00:00 [facility] Influenza Virus 2019-04-22 Completed [facility] of Vaccine [facility] .5 mL 00:00:00 [place] [facility] 6+ MO Branch Influenza Virus 2019-04-22 Completed [facility] of Vaccine [facility] .5 mL 00:00:00 [place] [facility] 6+ MO Branch Influenza Virus 2019-04-22 Completed [facility] of Vaccine [facility] .5 mL 00:00:00 [place] [facility] 6+ MO Branch Influenza Virus 2019-04-22 Completed [facility] of Vaccine [facility] .5 mL 00:00:00 [place] [facility] 6+ MO Branch Influenza Virus 2019-04-22 Completed [facility] of Vaccine [facility] .5 mL 00:00:00 [place] [facility] 6+ MO Branch Influenza Virus 2019-04-22 Completed [facility] Vaccine [facility] .5 mL 00:00:00 [place] [facility] 6+ MO Branch Influenza Virus 2019-04-22 Completed [facility] Vaccine [facility] .5 mL 00:00:00 [place] [facility] 6+ MO Branch Influenza Virus 2019-04-22 Completed [facility] of Vaccine [facility] .5 mL 00:00:00 [place] [facility] 6+ MO Branch Influenza Virus [...] y of Vaccine [facility] .5 mL 00:00:00 [place] [facility] 6+ MO Branch TDAP 2013-06-09 Completed University of 00:00:00 [facility] TDAP 2013-06-09 Completed University of 00:00:00 [facility] TDAP 2013-06-09 Completed University of 00:00:00 [facility] TDAP 2013-06-09 Completed University of 00:00:00 [place] [facility] TDAP 2013-06-09 Completed [facility] of 00:00:00 [place] [facility] TDAP 2013-06-09 Completed [facility] of 00:00:00 [place] [facility] TDAP 2013-06-09 Completed University of 00:00:00 [place] [facility] TDAP 2013-06-09 Completed [facility] of 00:00:00 [place] [facility] TDAP 2013-06-09 Completed [facility] of 00:00:00 [place] [facility] TDAP 2013-06-09 Completed [facility] of 00:00:00 [place] [facility] TDAP 2013-06-09 Completed University of 00:00:00 [facility] TDAP 2013-06-09 Completed University of 00:00:00 [place] [facility] TDAP 2013-06-09 Completed [facility] of 00:00:00 [place] [facility] TDAP 2013-06-09 Completed University of 00:00:00 [facility] TDAP 2013-06-09 Completed University of 00:00:00 [facility] TDAP 2013-06-09 Completed University of 00:00:00 [facility] TDAP 2013-06-09 Completed University of 00:00:00 [facility] TDAP 2013-06-09 Completed University of 00:00:00 [facility] TDAP 2013-06-09 Completed University of 00:00:00 [facility] TDAP 2013-06-09 Completed University of 00:00:00 [facility] TDAP 2013-06-09 Completed University of 00:00:00 [facility] TDAP 2013-06-09 Completed University of 00:00:00 [facility] TDAP 2013-06-09 Completed University of 00:00:00 [facility] TDAP 2013-06-09 Completed [facility] of 00:00:00 [facility] TDAP 2013-06-09 Completed University of 00:00:00 [facility] TDAP 2013-06-09 Completed University of 00:00:00 [place] [facility] TDAP 2013-06-09 Completed [facility] of 00:00:00 [place] [facility] TDAP 2013-06-09 Completed University of 00:00:00 [place] [facility] TDAP 2013-06-09 Completed University of 00:00:00 [facility] TDAP 2013-06-09 Completed University of 00:00:00 [facility] TDAP 2013-06-09 Completed University of 00:00:00 [place] [facility] TDAP 2013-06-09 Completed [facility] of 00:00:00 [place] [facility] TDAP 2013-06-09 Completed University of 00:00:00 [place] [facility] TDAP 2013-06-09 Completed [facility] of 00:00:00 [place] [facility] TDAP 2013-06-09 Completed [facility] of 00:00:00 [place] [facility] TDAP 2013-06-09 Completed [facility] of 00:00:00 [place] [facility] TDAP 2013-06-09 Completed [facility] of 00:00:00 [place] [facility] TDAP 2013-06-09 Completed University of 00:00:00 [place] [facility] TDAP 2013-06-09 Completed University of 00:00:00 [place] [facility] TDAP 2013-06-09 Completed University of 00:00:00 [facility] TDAP 2013-06-09 Completed University of 00:00:00 [facility] TDAP 2013-06-09 Completed University of 00:00:00 [facility] TDAP 2013-06-09 Completed University of 00:00:00 [facility] TDAP 2013-06-09 Completed University of 00:00:00 [facility] TDAP 2013-06-09 Completed University of 00:00:00 [place] [facility] TDAP 2013-06-09 Completed University of 00:00:00 [facility] TDAP 2013-06-09 Completed University of 00:00:00 [facility] TDAP 2013-06-09 Completed University of 00:00:00 [facility] TDAP 2013-06-09 Completed University of 00:00:00 [facility] TDAP 2013-06-09 Completed University of 00:00:00 [facility] TDAP 2013-06-09 Completed University of 00:00:00 [place] [facility] TDAP 2013-06-09 Completed University of 00:00:00 [place] [facility] TDAP 2013-06-09 Completed [facility] of 00:00:00 [place] [facility] TDAP 2013-06-09 Completed [facility] of 00:00:00 [place] [facility] TDAP 2013-06-09 Completed [facility] of 00:00:00 [place] [facility] TDAP 2013-06-09 Completed [facility] of 00:00:00 [place] [facility] TDAP 2013-06-09 Completed University of 00:00:00 [facility] TDAP 2013-06-09 Completed University of 00:00:00 [place] [facility] TDAP 2013-06-09 Completed University of 00:00:00 [place] [facility] TDAP 2013-06-09 Completed [facility] of 00:00:00 [place] [facility] TDAP 2013-06-09 Completed [facility] of 00:00:00 [place] [facility] TDAP 2013-06-09 Completed [facility] of 00:00:00 [place] [facility] TDAP 2013-06-09 Completed [facility] of 00:00:00 [place] [facility] TDAP 2013-06-09 Completed [facility] of 00:00:00 [place] [facility] TDAP 2013-06-09 Completed University of 00:00:00 [place] [facility] TDAP 2013-06-09 Completed University of 00:00:00 [place] [facility] TDAP 2013-06-09 Completed University of 00:00:00 [place] [facility] TDAP 2013-06-09 Completed University of 00:00:00 [place] [facility] TDAP 2013-06-09 Completed University of 00:00:00 [place] [facility] TDAP 2013-06-09 Completed [facility] of 00:00:00 [place] [facility] TDAP 2013-06-09 Completed University of 00:00:00 [place] [facility] TDAP 2013-06-09 Completed University of 00:00:00 [place] [facility] TDAP 2013-06-09 Completed University of 00:00:00 [place] [facility] TDAP 2013-06-09 Completed University of 00:00:00 [place] [facility] TDAP 2013-06-09 Completed University of 00:00:00 [place] [facility] TDAP 2013-06-09 Completed University of 00:00:00 [place] [facility] TDAP 2013-06-09 Completed University of 00:00:00 [facility] TDAP 2013-06-09 Completed University of 00:00:00 [facility] TDAP 2013-06-09 Completed University of 00:00:00 [facility] TDAP 2013-06-09 Completed University of 00:00:00 [facility] TDAP 2013-06-09 Completed University of 00:00:00 [facility] Vital Signs Vital Name Observation Time Observation Value Comments Source Systolic blood 2022-11-28 16:44:00 119 mm[Hg] Univer sity of pressure [facility] Diastolic blood 2022-11-28 16:44:00 67 mm[Hg] Unive rsity of pressure [facility] Heart rate 2022-11-28 16:44:00 72 /min Universi ty of [facility] Body height 2022-11-28 16:44:00 167.6 cm Universi ty of [place] [facility] Body weight 2022-11-28 16:44:00 104.327 kg Universi [facility] of [place] [facility] BMI 2022-11-28 16:44:00 37.12 kg/m2 [facility] [place] [facility] Oxygen saturation in 2022-11-28 16:44:00 94 /min University of Arterial blood by [place] [facility] oxim[facility] HEIGHT 2022-11-21 14:10:00 167.6 cm WEIGHT 2022-11-21 14:10:00 106.142 kg HEIGHT 2022-11-21 14:10:00 167.6 cm WEIGHT 2022-11-21 14:10:00 106.142 kg HEIGHT 2022-11-21 14:10:00 167.6 cm WEIGHT 2022-11-21 14:10:00 106.142 kg Systolic blood 2022-10-28 22:10:00 158 mm[Hg] Univer sity of pressure [facility] Diastolic blood 2022-10-28 22:10:00 90 mm[Hg] Unive rsity of pressure [facility] [place] Heart rate 2022-10-28 22:10:00 105 /min [facility] Oxygen saturation in 2022-10-28 22:10:00 96 /min University of Arterial blood by [facility] Pulse oximetry Branch Respiratory rate 2022-10-28 21:05:00 30 /min Univ ersity of [facility] Body temperature 2022-10-28 15:29:00 36.72 Araseli Univ ersity of [facility] Body weight 2022-10-28 15:29:00 111.585 kg [facility] BMI 2022-10-28 15:29:00 39.71 kg/m2 [facility] Systolic blood 2022-04-03 19:51:00 134 mm[Hg] Univer sity of pressure [facility] Diastolic blood 2022-04-03 19:51:00 86 mm[Hg] Unive rsity of pressure [facility] Heart rate 2022-04-03 19:51:00 83 /min [facility] Oxygen saturation in 2022-04-03 19:51:00 97 /min University of Arterial blood by [facility] Pulse oximetry [facility] Body temperature 2022-04-03 19:48:00 36.72 Araseli [facility] ersity of [facility] Respiratory rate 2022-04-03 19:48:00 17 /min Univ ersity of [facility] Body weight 2022-04-03 19:48:00 111.63 kg Universi ty of [facility] BMI 2022-04-03 19:48:00 39.72 kg/m2 Universi ty [facility] Systolic blood 2022-02-02 20:20:00 138 mm[Hg] Univer sity of pressure [facility] Diastolic blood 2022-02-02 20:20:00 90 mm[Hg] Unive rsity of [facility] Heart rate 2022-02-02 20:19:00 78 /min Universi ty [facility] Body height 2022-02-02 20:19:00 167.6 cm Universi ty [facility] Body weight 2022-02-02 20:19:00 104.736 kg Universi ty [facility] BMI 2022-02-02 20:19:00 37.27 kg/m2 Universi ty [facility] Oxygen saturation in 2022-02-02 20:19:00 99 /min [facility] Arterial blood by [facility] Pulse oximetry [place] Systolic blood 2022-11-25 07:05:00 126 mm[Hg] [facility] Diastolic blood 2022-11-25 07:05:00 69 mm[Hg] [facility] Heart rate 2022-11-25 07:05:00 54 /min [facility] Body temperature 2022-11-25 07:05:00 36.28 Araseli [facility] Respiratory rate 2022-11-25 07:05:00 17 /min [facility] Oxygen saturation in 2022-11-25 07:05:00 98 /min [facility] Arterial blood by Medical nter Pulse oximetry Body height 2022-11-21 14:10:00 167.6 cm [facility] Body weight 2022-11-21 14:10:00 106.142 kg [facility] BMI 2022-11-21 14:10:00 37.77 kg/m2 [facility] Procedures Procedure Date / Time Performing Clinician Source Performed EXTERNAL PROVIDER RECORDS 2022-12-10 05:01:00 Doctor Unassigned, [facility] POCT-GLUCOSE METER 2022-11-25 08:14:00 Medina [facility] CBC W/PLT COUNT & AUTO 2022-11-25 05:47:00 Robert Power [facility] BASIC METABOLIC PANEL 2022-11-25 05:47:00 Robert Power [facility] PHOSPHORUS 2022-11-25 05:47:00 Tono [facility] MAGNESIUM 2022-11-25 05:47:00 Tono [facility] CBC W/PLT COUNT & AUTO 2022-11-25 05:47:00 Tono [facility] ECG 12-LEAD 2022-11-24 22:54:38 Posthenok [facility] ECG 12-LEAD 2022-11-24 22:54:38 Unknown, Hl7 [facility] POCT-GLUCOSE METER 2022-11-24 22:12:00 Medina [facility] BASIC METABOLIC PANEL 2022-11-24 18:58:00 Robert Power [facility] HIGH SENSITIVITY TROPONIN 2022-11-24 18:58:00 Dino Tate I [facility] CBC W/PLT COUNT & AUTO 2022-11-24 18:58:[address] [facility] MAGNESIUM 2022-11-24 18:58:00 Bebeto [facility] PHOSPHORUS 2022-11-24 18:58:00 Bebeto [facility] CBC W/PLT COUNT & AUTO 2022-11-24 18:58:[address] [facility] CT BRAIN WITHOUT IV 2022-11-24 18:45:00 [facility] POCT-GLUCOSE METER 2022-11-24 17:05:00 Medina [facility] POCT-GLUCOSE METER 2022-11-24 12:37:00 Medina [facility] POCT-GLUCOSE METER 2022-11-24 08:23:00 Medina [facility] CBC W/PLT COUNT & AUTO 2022-11-24 04:18:00 Robert Power [facility] BASIC METABOLIC PANEL 2022-11-24 04:18:00 Robert Power [facility] PHOSPHORUS 2022-11-24 04:18:00 Tono [facility] MAGNESIUM 2022-11-24 04:18:00 Tono [facility] CBC W/PLT COUNT & AUTO 2022-11-24 04:18:00 Tono [facility] POCT-GLUCOSE METER 2022-11-23 21:50:00 Medina [facility] EEG AWAKE AND DROWSY 2022-11-23 19:00:13 Leyla Cha [facility] POCT-GLUCOSE METER 2022-11-23 17:59:00 Medina [facility] CAROTID DOPPLER BILATERAL 2022-11-23 14:00:00 Kevin Pang [facility] POCT-GLUCOSE METER 2022-11-23 12:59:00 Medina [facility] POCT-GLUCOSE METER 2022-11-23 08:11:00 Medina [facility] CBC W/PLT COUNT & AUTO 2022-11-23 04:08:00 Tono Robert [facility] PHOSPHORUS 2022-11-23 04:08:00 Tono [facility] MAGNESIUM 2022-11-23 04:08:00 Tono [facility] CBC W/PLT COUNT & AUTO 2022-11-23 04:08:00 Robert Power [facility] POCT-GLUCOSE METER 2022-11-22 20:57:00 Paola [facility] [facility] POCT-GLUCOSE METER 2022-11-22 17:34:00 [facility] POCT-GLUCOSE METER 2022-11-22 11:21:[address] [facility] [address] BRAIN WITHOUT IV 2022-11-22 09:30:00 Amaury Tovarrukh [facility] POCT-GLUCOSE METER 2022-11-22 08:02:00 Donta Markolayinka [facility] CBC W/PLT COUNT & AUTO 2022-11-22 03:05:00 Robert Power [facility] BASIC METABOLIC PANEL 2022-11-22 03:05:00 Robert Power [facility] PHOSPHORUS 2022-11-22 03:05:00 Robert Power [facility] MAGNESIUM 2022-11-22 03:05:00 Robert Power [facility] CBC W/PLT COUNT & AUTO 2022-11-22 03:05:00 Robert Power [facility] CT BRAIN WITHOUT IV 2022-11-21 22:44:31 Marilee Betancourt [facility] EEG AWAKE AND DROWSY 2022-11-21 20:01:05 Kevin Pang [facility] Suheel [facility]ric[facility] CBC W/PLT COUNT & AUTO 2022-11-21 16:54:00 Robert Power [facility] HIGH SENSITIVITY TROPONIN 2022-11-21 16:54:00 Henry Power [facility] HEMOGLOBIN A1C 2022-11-21 16:54:00 Robert Power [facility] TSH/FREE T4 IF INDICATED 2022-11-21 16:54:00 Damon Power [facility] VITAMIN B12 2022-11-21 16:54:00 Robert Power [facility] METHYLMALONIC ACID 2022-11-21 16:54:00 Robert Power [facility] HC LAB HIV-1 AG W/HIV-1&2 2022-11-21 16:54:00 Henry Power [facility] AB [facility] RPR 2022-11-21 16:54:00 Robert Power [facility] CBC W/PLT COUNT & AUTO 2022-11-21 16:54:00 Tono Robert [facility] [place] INSERT 2022-11-21 16:28:15 Kevin Pang [facility] CATH,ART,PERCUT,SHORTTERM [facility] ECG 12-LEAD 2022-11-21 16:05:42 Unknown, Hl7 [facility] ECG 12-LEAD 2022-11-21 16:04:59 LongDino [facility] ECG 12-LEAD 2022-11-21 16:04:59 Unknown, Hl7 [facility] COMPREHENSIVE METABOLIC 2022-11-21 15:19:00 Robert Power [facility] PHOSPHORUS 2022-11-21 15:19:00 Robert Power [facility] MAGNESIUM 2022-11-21 15:19:00 Robert Power [facility] PROTHROMBIN TIME/INR 2022-11-21 15:19:00 Robert Power CH, I [facility] APTT 2022-11-21 15:19:00 Robert Power [facility] LIPID PANEL 2022-11-21 15:19:00 Robert Power [facility] C-REACTIVE PROTEIN 2022-11-21 15:19:00 Robert Power [facility] CREATINE KINASE (CK) 2022-11-21 15:19:00 Robert Power CH, I [facility] POCT-GLUCOSE METER 2022-11-21 14:42:00 Belle Cates [facility] EKG-SCANNED 2022-11-21 00:00:00 [facility] US TESTICULAR TORSION 2022-10-28 18:10:00 Candida Paul [facility] BASIC METABOLIC PANEL 2022-10-28 15:47:[address] [facility] (NA, K, CL, CO2, GLUCOSE, Medica l Branch BUN, CREATININE, CA) CBC WITH DIFF 2022-10-28 15:47:00 Humberto [facility] URINALYSIS 2022-10-28 15:47:00 Candida Paul [facility] CONSENT/REFUSAL FOR 2022-10-28 15:25:48 Doctor Chadwick, [facility] DIAGNOSIS AND TREATMENT [facility] EXTERNAL PROVIDER - ADC 2022-05-03 06:01:00 Doctor Chadwick, [facility] CARDIOLOGY [facility] AUTHORIZATION TO RELEASE 2022-04-03 06:01:00 Doctor Chadwick, [facility] PHI TO [facility] US ABDOMEN COMPLETE 2022-02-13 18:24:56 Blessing Yaens [facility] FLU VACC ([id number]), 6 2022-02-02 20:37:25 Blessing Yanes [facility] MO-64 YRS, .5ML, IM, QUAD Medica l Branch (FLUCELVAX) MEDICATION CORRESPONDENCE 2022-01-19 05:01:00 Doctor Chadwick [facility] DME/SUPPLY JUSTIFICATION 2021-12-25 05:01:00 Doctor Chadwick, [facility] CT Spine lumbar myelogram 2017-05-30 00:00:00 [place] [facility] [id number] Plan of Care Planned Activity Planned Date Details Comments Source Future Scheduled 2025-11-21 Lipid panel (procedure) [facility] Test 00:00:00 [code = 65208969] Medical Ce nter Future Scheduled 2023-06-09 DTAP/TDAP/TD VACCINES ([address] [facility] Test 00:00:00 - Td or Tdap) [code = Medica l Center DTAP/TDAP/TD VACCINES (2 - Td or Tdap)] Future Scheduled 2023-01-11 Influenza Vaccine (#1) [facility] 00:00:00 [code = Influenza Vaccine Me dical Center (#1)] Future Scheduled 2022-11-28 Screening for malignant [facility] 11:18:16 neoplasm of colon Hospital (procedure) [code = 150548947] Future Scheduled 2022-11-28 Screening for malignant [facility] 11:18:16 neoplasm of colon Hospital (procedure) [code = 959739499] Future Scheduled 2022-11-28 Screening for malignant [facility] 11:18:16 neoplasm of colon Hospital (procedure) [code = 610494875] Future Scheduled 2022-11-28 COVID-19 VACCINE (#1) [facility] 11:18:16 [code = COVID-19 [facility]ACCINE [facility] Future Scheduled 2022-11-28 Screening for malignant [facility] 11:18:16 neoplasm of colon Hospital (procedure) [code = 748113418] Future Scheduled 2022-11-28 Screening for malignant [facility] 11:18:16 neoplasm of colon Hospital (procedure) [code = 724156533] Future Scheduled 2022-11-28 SHINGLES VACCINES (1 of [facility] 11:18:16 2) [code = SHINGLES Hospital VACCINES (1 of 2)] Future Scheduled 2022-11-28 INFLUENZA VACCINE [code = [facility] 11:18:16 INFLUENZA VACCINE] Hospital Future Scheduled 2022-11-21 SHINGLES VACCINES (1 of [facility] 10:58:39 2) [code = SHINGLES Hospital VACCINES (1 of 2)] Future Scheduled 2022-11-21 INFLUENZA VACCINE [code = [facility] 10:58:39 INFLUENZA VACCINE] Hospital Future Scheduled 2022-11-21 Screening for malignant [facility] 10:58:39 neoplasm of colon Hospital (procedure) [code = 298321912] Future Scheduled 2022-11-21 Screening for malignant [facility] 10:58:39 neoplasm of colon Hospital (procedure) [code = 464289127] Future Scheduled 2022-11-21 Screening for malignant [facility] 10:58:39 neoplasm of colon Hospital (procedure) [code = 181079200] Future Scheduled 2022-11-21 COVID-19 VACCINE (#1) [facility] 10:58:39 [code = COVID-19 VACCINE Hos pital (#1)] Future Scheduled 2022-11-21 Screening for malignant [facility] 10:58:39 neoplasm of colon Hospital (procedure) [code = 503893066] Future Scheduled 2022-11-21 Screening for malignant [facility] 10:58:39 neoplasm of colon Hospital (procedure) [code = 801812756] Future Scheduled 2022-10-25 Screening for malignant [facility] 12:18:53 neoplasm of colon Hospital (procedure) [code = 712730929] Future Scheduled 2022-10-25 Screening for malignant [facility] 12:18:53 neoplasm of colon Hospital (procedure) [code = 271918989] Future Scheduled 2022-10-25 Screening for malignant [facility] 12:18:53 neoplasm of colon Hospital (procedure) [code = 196026836] Future Scheduled 2022-10-25 COVID-19 VACCINE (#1) [facility] 12:18:53 [code = COVID-19 VACCINE Hos pital (#1)] Future Scheduled 2022-10-25 Screening for malignant [facility] 12:18:53 neoplasm of colon Hospital (procedure) [code = 104383568] Future Scheduled 2022-10-25 Screening for malignant [facility] 12:18:53 neoplasm of colon Hospital (procedure) [code = 969609271] Future Scheduled 2022-10-25 SHINGLES VACCINES (1 of [facility] 12:18:53 2) [code = SHINGLES Hospital VACCINES (1 of 2)] Future Scheduled 2022-10-25 INFLUENZA VACCINE [code = [facility] 12:18:53 INFLUENZA VACCINE] Hospital Future Scheduled 2022-09-10 Medicare IPPE (WELCOME TO [facility] Test 00:00:00 MEDICARE) [code = Medical Ce nter Medicare IPPE (WELCOME TO MEDICARE)] Future Scheduled 2022-08-15 COVID-19 VACCINE (#1) [facility] 23:12:16 [code = COVID-19 VACCINE Hos pital (#1)] Future Scheduled 2022-08-15 COLONOSCOPY SCREENING [facility] 23:12:16 [code = COLONOSCOPY Hospital SCREENING] Future Scheduled 2022-08-15 SHINGLES VACCINES (1 of [facility] 23:12:16 2) [code = SHINGLES Hospital VACCINES (1 of 2)] Future Scheduled 2022-08-15 INFLUENZA VACCINE [code = [facility] 23:12:16 INFLUENZA VACCINE] Hospital Future Scheduled 2022-05-[address] [facility] Test 00:00:00 (12+) [code = DEPRESSION [facility] SCREENING (12+)] Future Scheduled 2022-04-25 COVID-19 VACCINE (#1) [facility] 20:19:34 [code = COVID-19 VACCINE Hos pital (#1)] Future Scheduled 2022-04-25 COLONOSCOPY [facility]CREENING [facility] 20:19:34 [code = COLONOSCOPY Hospital SCREENING] Future Scheduled 2022-04-25 SHINGLES VACCINES (1 of [facility] 20:19:34 2) [code = SHINGLES Hospital VACCINES (1 of 2)] Future Scheduled 2022-04-25 INFLUENZA VACCINE [code = [facility] 20:19:34 INFLUENZA VACCINE] Hospital Future Scheduled 2022-04-25 COVID-19 VACCINE (#1) [facility] 20:19:34 [code = COVID-19 VACCINE Hos pital (#1)] Future Scheduled 2022-04-25 COLONOSCOPY SCREENING [facility] 20:19:34 [code = COLONOSCOPY Hospital SCREENING] Future Scheduled 2022-04-25 SHINGLES VACCINES (1 of [facility] 20:19:34 2) [code = SHINGLES Hospital VACCINES (1 of 2)] Future Scheduled 2022-04-25 INFLUENZA VACCINE [code = [facility] 20:19:34 INFLUENZA VACCINE] Hospital Future Scheduled 2022-04-25 COVID-19 VACCINE (#1) [facility] 20:19:34 [code = COVID-19 VACCINE Hos pital (#1)] Future Scheduled 2022-04-25 COLONOSCOPY [facility]CREENING [facility] 20:19:34 [code = COLONOSCOPY Hospital SCREENING] Future Scheduled 2022-04-25 SHINGLES VACCINES (1 of [facility] 20:19:34 2) [code = SHINGLES Hospital VACCINES (1 of 2)] Future Scheduled 2022-04-25 INFLUENZA VACCINE [code = [facility] 20:19:34 INFLUENZA VACCINE] Hospital Future Scheduled 2022-04-25 COVID-19 VACCINE (#1) [facility] 20:19:34 [code = COVID-19 VACCINE Hos pital (#1)] Future Scheduled 2022-04-25 COLONOSCOPY [facility]CREENING [facility] 20:19:34 [code = COLONOSCOPY Hospital SCREENING] Future Scheduled 2022-04-25 SHINGLES VACCINES (1 of [facility] 20:19:34 2) [code = SHINGLES Hospital VACCINES (1 of 2)] Future Scheduled 2022-04-25 INFLUENZA VACCINE [code = [facility] 20:19:34 INFLUENZA VACCINE] Hospital Future Scheduled 2022-03-14 HEPATITIS B VACCINES (1 [facility] 23:23:26 of 3 - 3-dose series) Hospit al [code = HEPATITIS B VACCINES (1 of 3 - 3-dose series)] Future Scheduled 2022-03-14 COVID-19 VACCINE (#1) [facility] 23:23:26 [code = COVID-19 VACCINE Hos pital (#1)] Future Scheduled 2022-03-14 COLONOSCOPY [facility]CREENING [facility] 23:23:26 [code = COLONOSCOPY Hospital SCREENING] Future Scheduled 2022-03-14 SHINGLES VACCINES (1 of [facility] 23:23:26 2) [code = SHINGLES Hospital VACCINES (1 of 2)] Future Scheduled 2022-03-14 INFLUENZA VACCINE [code = [facility] 23:23:26 INFLUENZA VACCINE] Hospital Future Scheduled 2022-03-14 HEPATITIS B VACCINES (1 [facility] 23:23:26 of 3 - 3-dose series) Hospit al [code = HEPATITIS B VACCINES (1 of 3 - 3-dose series)] Future Scheduled 2022-03-14 COVID-19 VACCINE (#1) [facility] 23:23:26 [code = COVID-19 VACCINE Hos pital (#1)] Future Scheduled 2022-03-14 COLONOSCOPY [facility]CREENING [facility] 23:23:26 [code = COLONOSCOPY Hospital SCREENING] Future Scheduled 2022-03-14 SHINGLES VACCINES (1 of [facility] 23:23:26 2) [code = SHINGLES Hospital VACCINES (1 of 2)] Future Scheduled 2022-03-14 INFLUENZA VACCINE [code = [facility] 23:23:26 INFLUENZA VACCINE] Hospital Future Scheduled 2022-01-03 INFLUENZA VACCINE [code = [facility] 17:56:50 INFLUENZA VACCINE] Hospital Future Scheduled 2022-01-03 HEPATITIS B VACCINES (1 [facility] 17:56:50 of 3 - 3-dose series) Hospit al [code = HEPATITIS B VACCINES (1 of 3 - 3-dose series)] Future Scheduled 2022-01-03 COVID-19 VACCINE (#1) [facility] 17:56:50 [code = COVID-19 VACCINE Hos pital (#1)] Future Scheduled 2022-01-03 COLONOSCOPY [facility]CREENING [facility] 17:56:50 [code = COLONOSCOPY Hospital SCREENING] Future Scheduled 2022-01-03 SHINGLES VACCINES (1 of [facility] 17:56:50 2) [code = SHINGLES Hospital VACCINES (1 of 2)] Future Scheduled 2022-01-03 INFLUENZA VACCINE [code = [facility] 17:56:50 INFLUENZA VACCINE] Hospital Future Scheduled 2022-01-03 HEPATITIS B VACCINES (1 [facility] 17:56:50 of 3 - 3-dose series) Hospit al [code = HEPATITIS B VACCINES (1 of 3 - 3-dose series)] Future Scheduled 2022-01-03 COVID-19 VACCINE (#1) [facility] 17:56:50 [code = COVID-19 VACCINE Hos pital (#1)] Future Scheduled 2022-01-03 COLONOSCOPY [facility]CREENING [facility] 17:56:50 [code = COLONOSCOPY Hospital SCREENING] Future Scheduled 2022-01-03 SHINGLES VACCINES (1 of [facility] 17:56:50 2) [code = SHINGLES Hospital VACCINES (1 of 2)] Future Scheduled 2022-01-03 INFLUENZA VACCINE [code = [facility] 17:56:50 INFLUENZA VACCINE] Hospital Future Scheduled 2022-01-03 HEPATITIS B VACCINES (1 [facility] 17:56:50 of 3 - 3-dose series) Hospit al [code = HEPATITIS B VACCINES (1 of 3 - 3-dose series)] Future Scheduled 2022-01-03 COVID-19 VACCINE (#1) [facility] 17:56:50 [code = COVID-19 VACCINE Hos pital (#1)] Future Scheduled 2022-01-03 COLONOSCOPY [facility]CREENING [facility] 17:56:50 [code = COLONOSCOPY Hospital SCREENING] Future Scheduled 2022-01-03 SHINGLES VACCINES (1 of [facility] 17:56:50 2) [code = SHINGLES Hospital VACCINES (1 of 2)] Future Scheduled 2022-01-03 INFLUENZA VACCINE [code = [facility] 17:56:50 INFLUENZA VACCINE] Hospital Future Scheduled 2022-01-03 HEPATITIS B VACCINES (1 [facility] 17:56:50 of 3 - 3-dose series) Hospit al [code = HEPATITIS B VACCINES (1 of 3 - 3-dose series)] Future Scheduled 2022-01-03 COVID-19 VACCINE (#1) [facility] 17:56:50 [code = COVID-19 VACCINE Hos pital (#1)] Future Scheduled 2022-01-03 COLONOSCOPY [facility]CREENING [facility] 17:56:50 [code = COLONOSCOPY Hospital SCREENING] Future Scheduled 2022-01-03 SHINGLES VACCINES (1 of [facility] 17:56:50 2) [code = SHINGLES Hospital VACCINES (1 of 2)] Future Scheduled 2022-01-03 INFLUENZA VACCINE [code = [facility] 17:56:50 INFLUENZA VACCINE] Hospital Future Scheduled 2022-01-03 HEPATITIS B VACCINES (1 [facility] 17:56:50 of 3 - 3-dose series) Hospit al [code = HEPATITIS B VACCINES (1 of 3 - 3-dose series)] Future Scheduled 2022-01-03 COVID-19 VACCINE (#1) [facility] 17:56:50 [code = COVID-19 VACCINE Hos pital (#1)] Future Scheduled 2022-01-03 COLONOSCOPY [facility]CREENING [facility] 17:56:50 [code = COLONOSCOPY Hospital SCREENING] Future Scheduled 2022-01-03 SHINGLES VACCINES (1 of [facility] 17:56:50 2) [code = SHINGLES Hospital VACCINES (1 of 2)] Future Scheduled 2020 SHINGLES VACCINES ([address] [facility] Test 00:00:00 2) [facility] Future Scheduled 1988 HEPATITIS C [facility] 00:00[facility]00 [code = HEPATITIS C Medical Center SCREENING] Future Scheduled [address] [facility] Test 00:00:00 virus screening Medical Cent er (procedure) [code = 382854834] Future Scheduled [address] [facility] Test 00:00:00 Counseling and Screening [facility] (12+) [code = Tobacco Cessation Counseling and Screening (12+)] Future Scheduled 1971-03-16 COVID-19 VACCINE (#1) [facility] 00:00:00 [code = COVID-19 VACCINE Med ical Center (#1)] Future Scheduled 1970 CT Colonography (combo) [facility] Test 00:00:00 [code = CT Colonography [facility] Center (combo)] Future Scheduled 1970 Screening for malignant [facility] Test 00:00:00 neoplasm of colon Medical Ce nter (procedure) [code = 382568070] Future Scheduled 1970 Screening for malignant [facility] Test 00:00:00 neoplasm of colon Medical Ce nter (procedure) [code = 718222216] Future Scheduled 1970 Screening for malignant [facility] Test 00:00:00 neoplasm of colon Medical Ce nter (procedure) [code = 938664404] Future Scheduled 1970 Screening for malignant [facility] Test 00:00:00 neoplasm of colon Medical Ce nter (procedure) [code = 118399941] Future Scheduled 1970 Sigmoidoscopy [code = [facility] 00:[facility] Sigmoidoscopy] Medical Cente r Encounters Start End Encounter Admission Attending Care Care Encounter Source Date/Time Date/Time Type Type Clinicians Facility Department ID 2022-11-24 Inpatient ER MEDINA [facility] [id number] SLE 18:28:35 MRINALINI 2022-11-24 Inpatient ER MEDINA [facility] [id number] SLE 08:11:11 MRINALINI 2022-11-23 Inpatient ER CATES, [facility] [id number] SLE 12:42:16 BELLE 2022-11-22 Inpatient ER [facility] [id number] SLE 09:39:31 2022-11-22 Inpatient ER [facility] [id number] SLE 09:07:19 2022-11-21 Inpatient ER CATES, [facility] [id number] [facility] 22:21:04 [facility] 2022-11-21 Inpatient ER CATES, [facility] [id number] SLE 16:26:35 [facility] 2022-12-12 2022-12-12 Outpatient R FARZANA [facility] [id number] Univers 12:30:00 12:30:00 BLESSING ity of [facility] 2022-12-11 2022-12-11 [facility]phone [facility] [id number] Univers 00:00:00 00:00:00 Blessing A HEALTH 350.1.13.10 i ty of [place] [id number] Adrien as BORIS?BLEA [phone] [address] MEDICAL OFFICE [facility] 2022-12-11 2022-12-11 Patient Farzana [facility] [id number] Univers 00:00:00 00:00:00 Secure Msg Blessing A HEALTH 350.1.13.10 ity of [place] [id number] Adrien as BORIS?BLEA [phone] [address] OFFICE [facility] 2022-12-10 2022-12-10 Orders Doctor ALEM [id number] Univers 00:00:00 00:00:00 Only Unassigned, LUIS ARMANDO 350.1.13.10 ity of [place] [facility] [id number] Adrien as [phone] [address] 2022-12-07 2022-12-07 Telephone Jacqueline [facility] [id number] Univers 00:00:00 00:00:00 , Jamila HEALTH 350.1.13.10 ity of [facility] [id number] Adrien as BORIS?BLEA [phone] [address] MEDICAL OFFICE [facility] 2022-12-05 2022-12-05 Telephone [facility] [id number] Univers 00:00:00 00:00:00 , Jamila HEALTH 350.1.13.10 ity of [place] 4.2.7.2.686 Adrien as BORIS?BLEA [phone] [address] MEDICAL OFFICE BUILDING 2022-12-04 2022-12-04 Refill [facility] 1.2.840.114 [id number] Univers 00:00:00 00:00:00 , Jamila HEALTH 350.1.13.10 ity of [place] 4.2.7.2.686 Adrien as BORIS?BLEA [phone] [address] OFFICE [facility] 2022-12-04 2022-12-04 Refill [facility] [id number] Univers 00:00:00 00:00:00 , Jamila HEALTH 350.1.13.10 ity of [place] 4.2.7.2.686 Adrien as BORIS?BLEA [phone] [address] MEDICAL OFFICE [facility] 2022-11-30 2022-11-30 Outpatient R DEVEN [facility] [id number] Univers 14:00:00 14:00:00 DILIP donnelly o f [facility] 2022-11-28 2022-11-28 Outpatient R [facility] [id number] Univers 11:20:00 12:31:29 , JAMILA it y of [facility] 2022-11-28 2022-11-28 Office [facility] 1.2.840.114 [id number] Univers 11:20:00 12:31:29 Visit , [facility] 350.1.13.10 ity of [place] 4.2.7.2.686 Adrien as BORIS?BLEA [phone] [address] OFFICE [facility] 2022-11-28 2022-11-28 Patient Fabian [facility] 1.2.840.114 [id number] Univers 00:00:00 00:00:00 Outreach Ashley Francis HEALTH 350.1.13.10 i ty of [place] 4.2.7.2.686 Adrien as BORIS?BLEA [phone] Md dicga KNEY [address] [facility] OFFICE [facility] 2022-11-26 2022-11-26 Telephone [facility] [id number] Univers 00:00:00 00:00:00 Blessing A HEALTH 350.1.13.10 i ty of [place] 4.2.7.2.686 Adrien as BORIS?BLEA [phone] [address] OFFICE [facility] 2022-11-21 2022-11-25 Inpatient ER MEDINA, [facility] Neuro ICU [id number] [facility] 14:05:00 11:27:00 [facility] 2022-11-21 2022-11-25 [facility] Dalila Rodriguez [facility] [id number] 14:05:00 11:27:00 Encounter [facility] Mariangel Luciano, [facility] 2022-11-24 2022-11-24 Orders [facility] [id number] 00:00:00 00:00:[address] [facility] 2022-11-23 2022-11-23 Telephone [facility] [id number] Univers 00:00:00 00:00:00 Dilip [place] 350.1.13.10 ity of [facility] 4.2.7.2.[place] PROF[place] [phone] Md dical NAL 059 [facility] 2022-11-23 2022-11-23 Refill Wilfredo [facility] 1.2.840.114 [id number] Univers 00:00:00 00:00:00 Hue HEALTH 350.1.13.10 it y of [place] 4.2.7.2.686 Adrien as BORIS?BLEA [phone] Md dical KNEY 0[address] [facility] OFFICE [facility] 2022-11-21 2022-11-21 Patient [facility] 1.2.840.114 [id number] Univers 00:00:00 00:00:00 Secure Msg Blessing A HEALTH 350.1.13.10 ity of [place] 4.2.7.2.686 Adrien as BORIS?BLEA [phone] [address] MEDICAL OFFICE [facility] 2022-11-21 2022-11-21 Orders [facility] [id number] 00:00:00 00:00:[address] [facility] 2022-11-12 2022-11-12 [facility]ill [facility] 1.2.840.114 [id number] Univers 00:00:00 00:00:00 Blessing A HEALTH 350.1.13.10 i ty of [place] 4.2.7.2.686 Adrien as BORIS?BLEA [phone] [address] OFFICE [facility] 2022-11-10 2022-11-10 Refmarah [facility] 1.2.840.114 [id number] Univers 00:00:00 00:00:00 [facility] HEALTH 350.1.13.10 i ty of [place] 4.2.7.2.686 Adrien as BORIS?BLEA [id number] [address] OFFICE [facility] 2022-11-10 2022-11-10 Isabella [facility] 1.2.840.114 [id number] Univers 00:00:00 00:00:00 Blessing A HEALTH 350.1.13.10 i ty of [place] [facility] 4.2.7.2.686 Adrien as BORIS?BLEA [phone] [address] OFFICE [facility] 2022-10-28 2022-10-28 Emergency X [facility] E[facility] [id number] Univers 10:30:00 18:00:00 CANDIDA ity of [facility] 2022-10-28 2022-10-28 Emergency [facility] [id number] Univers 10:30:00 18:00:00 Candida S [place] 350.1.13.10 i ty [place]2.7.2.[place] [phone] [address] 2022-10-24 2022-10-24 Outpatient [facility] [id number] Univers 14:40:00 14:40:00 DILIP calderónjoie celeste pickering [facility] 2022-10-15 2022-10-15 Out[facility] [id number] Univers 14:40:00 14:40:00 DILIP pickering [facility] 2022-10-12 2022-10-12 [id number] Univers 00:00:00 00:00:00 [facility]ing [facility] [id number] i ty of [place] [id number] Adrien as BORIS?BLEA [phone] [address] 2022-10-12 2022-10-12 [facility] [id number] Univers 00:00:00 00:00:00 Blessing [facility] [id number] i ty of [place] [id number] Adrien as BORIS?BLEA [phone] [address] OFFICE [facility] 2022-10-12 2022-10-12 [facility] [id number] Univers 00:00:00 00:00:00 [facility]ing [facility] 350.1.13.10 i ty of [place] [id number] Adrien as BORIS?BLEA [phone] [address] 2022-10-12 2022-10-12 [facility] 1.2.840.114 [id number] Univers 00:00:00 00:00:00 [facility] HEALTH 350.1.13.10 i ty of [place] 4.2.7.2.686 Adrien as BORIS?BLEA [phone] [address] 2022-10-01 2022-10-01 Outpatient [facility] [id number] Univers 14:00:00 14:00:00 RODOLFODEON cony alonso james [facility] 2022-09-18 2022-09-18 Telephone [facility] 1.2.563.744 [id number] Univers 00:00:00 00:00:00 Qiangbeau [place] 350.1.13.10 ity of [place].2.[place] [phone] [facility] NAL 9 [facility] 2022 2022 Outpatient [facility] [id number] Univers 09:00:00 09:00:00 QIANGJUN ity o f [facility] 2022-09-05 2022-09-05 [facility]ill [facility] 1.2.840.114 [id number] Univers 00:00:00 00:00:00 Blessing A HEALTH 350.1.13.10 i ty of [place] 4.2.7.2.686 Adrien as BORIS?BLEA [phone] [address] OFFICE [facility] 2022-09-03 2022-09-03 [facility] 1.2.840.114 [id number] Univers 00:00:00 00:00:00 Secure Msg Blessing A HEALTH 350.1.13.10 ity of [place] 4.2.7.2.686 Adrien as BORIS?BLEA [phone] [address] 2022-08-31 2022-08-31 [facility] 1.2.840.114 [id number] Univers 00:00:00 00:00:00 Secure Msg Blessing A HEALTH 350.1.13.10 ity of [place] 4.2.7.2.686 Adrien as BORIS?BLEA [phone] [address] OFFICE [facility] 2022-08-31 2022-08-31 Patient [facility] 1.2.840.114 [id number] Univers 00:00:00 00:00:00 Secure Msg Rodolfongbeau [place] 350.1.13.10 ity of [place].7.2.[place] [phone] [address] 2022-08-31 2022-08-31 [facility]ill [facility] 1.2.840.114 [id number] Univers 00:00:00 00:00:00 Maggie MULTISPEC 350.1.13.10 [place] of [place].2.[place] C[place] [phone] Adore Sheth [address] [facility] 2022-08-31 2022-08-31 Refmarah KhanGUADALU[facility] 1.2.840.114 [id number] Univers 00:00:00 00:00:00 Alfred HEALTH 350.1.13.10 it y of [place] 4.2.7.2.686 Adrien as BORIS?BLEA [phone] Md dic[address] MEDICAL OFFICE [facility] 2022-08-27 2022-08-27 Telephone [facility] 1.2.131.550 [id number] Univers 00:00:00 00:00:00 Dilip [place] 350.1.13.10 ity of [place] 4.2.7.2.686 [place] [facility] [phone] Md dical NAL 9 [facility] 2022-08-14 2022-08-14 Patient Farzana, [facility] 1.2.840.114 [id number] Univers 00:00:00 00:00:00 Secure Ms Blessing A HEALTH 350.1.13.10 ity of [place] 4.2.7.2.686 Adrien as BORIS?BLEA [phone] Md dic[address] MEDICAL OFFICE [facility] 2022-08-11 2022-08-11 Emergency ER CATANESTEREZA, [facility] [id number] [place] 05:03:00 06:34:00 TEREZA -[id number] [facility] 2022-07-21 2022-07-21 Emergency ER SHEKHAR, [facility] D000 [id number] [place] 19:47:00 21:28:00 CASSY -[id number] [facility] 2022-07-03 2022-07-03 Outpatient BIBIANA RESENDIZ [facility] 814 [place] 00:00:00 00:00:00 HN 0221 da [facility] 2022-07-02 2022-07-02 Telephone Ihsan [facility] 1.2.840.114 1 [id number] Univers 00:00:00 00:00:00 Kay Francis MULTISPEC 350.1.13.10 ity of [place].2.686 [place] CENTER [id number] [facility] AND GILL [address] [facility] 2022-06-25 2022-06-25 Refill Doctor [facility] 1.2.840.114 [id number] Univers 00:00:00 00:00:00 Unassigned, HEALTH 350.1.13.10 ity of [place] 4.2.7.2.686 Adrien as BORIS?BLEA [phone] [address] MEDICAL OFFICE [facility] 2022-06-25 2022-06-25 Refill [facility] 1.2.840.114 [id number] Univers 00:00:00 00:00:00 Blessing A HEALTH 350.1.13.10 i ty of [place] 4.2.7.2.686 Adrien as BORIS?BLEA [id number] [address] MEDICAL OFFICE [facility] 2022-06-25 2022-06-25 Refill [facility] 1.2.840.114 [id number] Univers 00:00:00 00:00:00 Blessing A HEALTH 350.1.13.10 i ty of [place] 4.2.7.2.686 Adrien as BORIS?BLEA [phone] [address] MEDICAL OFFICE [facility] 2022-06-25 2022-06-25 Patient Farzana, [facility] 1.2.840.114 [id number] Univers 00:00:00 00:00:00 Secure Msg Blessing A HEALTH 350.1.13.10 ity of [place] 4.2.7.2.686 Adrien as BORIS?BLEA [id number] [address] OFFICE [facility] 2022-05-03 2022-05-03 Orders Doctor ALEM 1.2.840.114 [id number] Univers 00:00:00 00:00:00 Only Unassigned, LUIS ARMANDO 350.1.13.10 ity of [facility] 4.2.7.2.686 Adrien as [phone] [facility] [address] 2022-04-24 2022-04-24 Patient Deven, [facility] 1.2.840.114 [id number] Univers 00:00:00 00:00:00 Secure Msg Dilip [place] 350.1.13.10 ity of [facility] 4.2.7.2.686 [place] [phone] Md dical NAL 059 [facility] 2022-04-23 2022-04-23 Patient Farzana, [facility] 1.2.840.114 [id number] Univers 00:00:00 00:00:00 Secure Msg Blessing A HEALTH 350.1.13.10 ity of [place] 4.2.7.2.686 Adrien as BORIS?BLEA [phone] Md dic[address] MEDICAL OFFICE [facility] 2022-04-23 2022-04-23 Patient Farzana, [facility] 1.2.840.114 [id number] Univers 00:00:00 00:00:00 Secure Msg Lbessing A HEALTH 350.1.13.10 ity of [place] 4.2.7.2.686 Adrien as BORIS?BLEA [phone] [address] OFFICE [facility] 2022-04-22 2022-04-22 Ref[facility] 1.2.840.114 [id number] Univers 00:00:00 00:00:00 Blessing A HEALTH 350.1.13.10 i ty of [place] 4.2.7.2.686 Adrien as BORIS?BLEA [phone] Md dic[address] OFFICE [facility] 2022-04-08 2022-04-08 Telephone [facility] 1.2.622.852 [id number] Univers 00:00:00 00:00:00 Blessing A HEALTH 350.1.13.10 i ty of [place] 4.2.7.2.686 Adrien as BORIS?BLEA [phone] [address] OFFICE [facility] 2022-04-06 2022-04-06 Emergency ER SKYLAR [facility] [id number] [place] 12:30:00 15:21:00 ADITYA -[id number] zenaida [facility] 2022-04-06 2022-04-06 Refmarah Bolton[facility] 1.2.840.114 [id number] Univers 00:00:00 00:00:00 Rodolfodeon CARLOS 350.1.13.10 ity of [place] 4.2.7.2.[place] [phone] Md dical NAL [address] [place] [address] 2022-04-04 2022-04-04 Patient [facility] 1.2.840.114 [id number] Univers 00:00:00 00:00:00 Secure Msg Kay DARBYPEC 350.1.13.10 ity of [place].2.686 [place] CENTER [id number] [facility] AND [address] [facility] 2022-04-03 2022-04-03 Office [facility] 1.2.840.114 [id number] Univers 14:20:00 14:20:00 Visit Dilip CARLOS 350.1.13.10 ity of [facility] 4.2.7.2.686 [place] [phone] [address] 2022-04-03 2022-04-03 Outpatient [facility] [id number] Univers 14:20:00 14:09:45 DILIP calderóny o f [facility] 2022-04-03 2022-04-03 Refill [facility] 1.2.840.114 [id number] Univers 00:00:00 00:00:00 Kay DARBYPEC 350.1.13.10 [place] of [place]2.[place].2.686 [place] CENTER [phone] [facility] AND [address] [facility] 2022-04-03 2022-04-03 Orders Doctor FERRARA 1.2.840.114 [id number] Univers 00:00:00 00:00:00 Only Unassigned, LUIS ARMANDO 350.1.13.10 ity of [place] [facility] 4.2.7.2.686 Adrien as [phone] [address] 2022-03-19 2022-03-19 Outpatient R DEVEN, [facility] [id number] Univers 09:20:00 09:20:00 DILIP alonso [facility] 2022-03-19 2022-03-19 Outpatient R DEVEN, [facility] [id number] Univers 09:20:00 09:20:00 DILIP donnelly [facility] 2022-03-19 2022-03-19 Outpatient R DEVEN, [facility] [id number] Univers 09:20:00 09:20:00 [facility] 2022-[facility]-19 2022-03-19 Outpatient R DEVEN, [facility] [id number] Univers 09:20:00 09:20:00 [facility] 2022-03-19 2022-03-19 Outpatient R DEVEN, [facility] [id number] Univers 09:20:00 09:20:00 [facility] 2022-02-15 2022-02-15 Telephone Farzana, [facility] 1.2.676.272 [id number] Univers 00:00:00 00:00:00 Blessing A HEALTH 350.1.13.10 i ty [facility] 4.2.7.2.686 Adrien as BORIS?BLEA [phone] [address] MEDICAL OFFICE [facility] 2022-02-14 2022-02-14 Outpatient BIBIANA PAMAX [facility] 814 [place] 00:00:00 00:00:00 HN 1005 [facility] 2022-02-14 2022-02-14 Patient [facility] 1.2.840.114 [id number] Univers 00:00:00 00:00:00 Secure Msg Blessing A HEALTH 350.1.13.10 ity of [place] 4.2.7.2.686 Adrien as BORIS?BLEA [id number] [address] MEDICAL OFFICE [facility] 2022-02-13 2022-02-13 Outpatient R FARZANA, [facility] [id number] Univers 12:37:39 23:59:00 BLESSING ity of [facility] 2022-02-13 2022-02-13 Hospital [facility] 1.2.840.114 [id number] Univers 12:37:39 23:59:00 Encounter Blessing CARLOS 350.1.13.10 ity of [facility] 4.2.7.2.686 [place] C[place] [id number] [facility] [address] 2022-02-08 2022-02-09 [facility] [id number] [place] 06:37:00 18:02:00 [facility][id number] 2022-02-09 2022-02-09 Isabella [facility] 1.2.840.114 [id number] Univers 00:00:00 00:00:00 Dilip [place] 350.1.13.10 ity of [place] 4.2.7.2.686 [place] [phone] [facility] [address] [facility] 2022-02-08 2022-02-08 Patient [facility] 1.2.840.114 [id number] Univers 00:00:00 00:00:00 Secure Msg Jacqui [place] 350.1.13.10 ity of [place] 4.2.7.2.[place] [id number] [facility] 044 [facility] 2022-02-08 2022-02-08 Patient [facility] 1.2.840.114 [id number] Univers 00:00:00 00:00:00 Secure Msg Blessing A HEALTH 350.1.13.10 [place]y [place] [facility] 4.2.7.2.686 Adrien as BORIS?BLEA [phone] Md dicga KNEY [address] MEDICAL OFFICE BUILDING 2022-02-05 2022-02-05 Telephone [facility] 1.2.733.124 [id number] Univers 00:00:00 00:00:00 Blessing A HEALTH 350.1.13.10 i ty of [place] [facility] 4.2.7.2.686 Adrien as BORIS?BLEA [phone] [facility] [address] MEDICAL OFFICE [facility] 2022-02-02 2022-02-02 [facility], Ang - Db [facility] 1.2.840.1 14 [id number] Univers 16:00:00 16:15:00 Visit Farzana Blessing Herr [facility] 350.1.13.10 ity [place] 4.2.7.2.686 Adrien as BORIS?BLEA [phone] [facility] [address] [facility] OFFICE [facility] 2022-02-02 2022-02-02 Outpatient R FARZANA, [facility] [id number] Univers 15:00:00 15:49:47 BLESSING ity [facility] 2022-02-02 2022-02-02 Office [facility] 1.2.840.114 [id number] Univers 15:00:00 15:49:47 Visit Blessing A [facility] 350.1.13.10 i ty of [place] 4.2.7.2.686 Adrien as BORIS?BLEA [phone] [address] OFFICE [facility] 2022-02-02 2022-02-02 Outpatient R FARZANA, [facility] [id number] Univers 14:30:00 14:30:00 BLESSING ity of [facility] 2022-01-19 2022-01-19 Orders Doctor FERRARA 1.2.840.114 [id number] Univers 00:00:00 00:00:00 Only Unassigned, LUIS ARMANDO 350.1.13.10 ity of [place] [facility] 4.2.7.2.686 Adrien as [phone] [address] 2022-01-16 2022-01-16 Isabella Bolton[facility]AL[facility] 1.2.840.114 [id number] Univers 00:00:00 00:00:00 Dilip [place] [facility] 350.1.13.10 ity of [place] 4.2.7.2.686 [place] ESSTHANH [phone] [facility] 059 [facility] 2022-01-08 2022-01-08 ALEM Hernandez 1.2.840.114 [id number] Univers 00:00:00 00:00:00 Management Ashley A LUIS ARMANDO 350.1.13.10 ity of HOSPITAL 4.2.7.2.686 Adrien as [id number] [address] 2022-01-06 2022-01-07 Inpatient ER Nick, [facility] [id number] [place] 14:59:00 16:35:00 Mariola -[id number] [facility] 2022-01-05 2022-01-05 Emergency ER Leticia, [facility] [id number] [place] 21:17:00 22:57:00 Yissel -[id number] [facility] 2022-01-04 2022-01-04 Patient Gómez, [facility] 1.2.840.114 [id number] Univers 00:00:00 00:00:00 Secure Msg Jacqui Beaver HEALTH 350.1.13.10 ity of [place] 4.2.7.2.686 Adrien as BORIS?BLEA [phone] [address] OFFICE [facility] 2022-01-04 2022-01-04 Patient Farzana, [facility] 1.2.840.114 [id number] Univers 00:00:00 00:00:00 Secure Msg Blessing A HEALTH 350.1.13.10 ity of [place] 4.2.7.2.686 Adrien as BORIS?BLEA [phone] [address] OFFICE [facility] 2022-01-02 2022-01-02 Refill [facility] 1.2.840.114 [id number] Univers 00:00:00 00:00:00 Blessing A HEALTH 350.1.13.10 i ty of [place] 4.2.7.2.686 Adrien as BORIS?BLEA [phone] [address] OFFICE [facility] 2022-01-01 2022-01-01 Refill Farzana, [facility] 1.2.840.114 [id number] Univers 00:00:00 00:00:00 Blessing A HEALTH 350.1.13.10 i ty of [place] 4.2.7.2.686 Adrien as BORIS?BLEA [phone] [address] OFFICE [facility] 2021-12-29 2021-12-29 Refmarah BoltonGUADALU[facility] 1.2.840.114 [id number] Univers 00:00:00 00:00:00 Qiangbeau [place] [facility] 350.1.13.10 ity of [facility] 4.2.7.2.686 [place] [phone] [address] 2021-12-25 2021-12-25 Orders Doctor ALEM 1.2.840.114 [id number] Univers 00:00:00 00:00:00 Only Unassigned, LUIS ARMANDO 350.1.13.10 ity of [place] [facility] 4.2.7.2.686 Adrien as [phone] [address] 2021-12-06 2021-12-06 Outpatient R [facility] [id number] Univers 11:30:00 11:30:00 BLESSING ity of [facility] 2021-12-01 2021-12-01 Refill [facility] 1.2.840.114 [id number] Univers 00:00:00 00:00:00 Blessing A HEALTH 350.1.13.10 i ty of [place] 4.2.7.2.686 Adrien as BORIS?BLEA [phone] [address] OFFICE [facility] 2021-11-30 2021-11-30 Refmarah BoltonGUADALU[facility] 1.2.840.114 [id number] Univers 00:00:00 00:00:00 Ricardabeau [place] 350.1.13.10 ity of [place] 4.2.7.2.[place] [id number] [address] 2021-11-30 2021-11-30 Telephone [facility] 1.2.874.277 [id number] Univers 00:00:00 00:00:00 Blessing A HEALTH 350.1.13.10 i ty of [place] [facility] 4.2.7.2.686 Adrien as BORIS?BLEA [phone] [address] OFFICE [facility] 2021-11-17 2021-11-17 Telephone [facility] 1.2.690.844 [id number] Univers 00:00:00 00:00:00 Blessing A HEALTH 350.1.13.10 i ty of [place] [facility] 4.2.7.2.686 Adrien as BORIS?BLEA [phone] [address] OFFICE [facility] 2021-11-17 2021-11-17 Telephone [facility]derGU[facility]ALU[facility] 1.2.840.114 [id number] Univers 00:00:00 00:00:00 Jany HEALTH 350.1.13.10 it y of [place] 4.2.7.2.686 Adrien as BORIS?BLEA [phone] [address] OFFICE [facility] 2021-11-14 2021-11-14 Patient [facility] 1.2.840.114 [id number] Univers 00:00:00 00:00:00 Secure Msg Jacqui Beaver HEALTH 350.1.13.10 ity of [place] 4.2.7.2.686 Adrien as BORIS?BLEA [id number] [address] OFFICE [facility] 2021-11-14 2021-11-14 Patient [facility] 1.2.840.114 [id number] Univers 00:00:00 00:00:00 Secure Msg Jacqui Beaver HEALTH 350.1.13.10 ity of [place] 4.2.7.2.686 Adrien as BORIS?BLEA [phone] [address] 2021-11-14 2021-11-14 Patient [facility] 1.2.840.114 [id number] Univers 00:00:00 00:00:00 Secure Msg Blessing A HEALTH 350.1.13.10 ity of [place] [facility] 4.2.7.2.686 Adrien as BORIS?BLEA [phone] [address] 2021-11-08 2021-11-08 Emergency X [facility] ERT [id number] Univers 07:59:00 08:59:00 BETTY donnelly of [facility] 2021-11-08 2021-11-08 Emergency [facility] 1.2.514.269 [id number] Univers 07:59:00 08:59:00 Betty CARLOS 350.1.13.10 i ty of [place] 4.2.7.2.686 [place] [facility] [phone] [address] 2021-11-08 2021-11-08 Telephone [facility] 1.2.372.445 [id number] Univers 00:00:00 00:00:00 Blessing A HEALTH 350.1.13.10 i ty of [place] 4.2.7.2.686 Adrien as BORIS?BLEA [phone] [address] MEDICAL OFFICE [facility] 2021-11-07 2021-11-07 Outpatient R IHSAN [facility] [id number] Univers 14:30:00 14:30:00 KAY alonso [facility] 2021-11-07 2021-11-07 Outpatient [facility] [id number] Univers 14:30:00 14:30:00 KAY alonso [facility] 2021-11-07 2021-11-07 Outpatient R [facility] [id number] Univers 14:30:00 14:30:00 KAY joie alonso [facility] 2021-11-01 2021-11-01 Outpatient [facility] [id number] Univers 12:30:00 12:30:00 KORY [facility] 2021-11-01 2021-11-01 Telephone [facility] 1.2.446.757 [id number] Univers 00:00:00 00:00:00 Blessing A HEALTH 350.1.13.10 i ty of [place] 4.2.7.2.686 Adrien as BORIS?BLEA [phone] [address] MEDICAL OFFICE [facility] 2021-10-25 2021-10-25 Outpatient R [facility] [id number] Univers 09:30:00 09:48:15 BLESSING itjoie [facility] 2021-10-25 2021-10-25 Office [facility] 1.2.840.114 [id number] Univers 09:30:00 09:48:15 Visit Blessing Herr HEALTH 350.1.13.10 i ty of [place] 4.2.7.2.686 Adrien as BORIS?BLEA [id number] [address] OFFICE [facility] 2021-10-19 2021-10-19 Telephone [facility]GU[facility] 1.2.266.645 [id number] Univers 00:00:00 00:00:00 Qiadeon [place] 350.1.13.10 ity of [place] 4.2.7.2.686 [place] [id number] [facility] 059 [facility] 2021-10-18 2021-10-18 Patient [facility] 1.2.840.114 [id number] Univers 00:00:00 00:00:00 Secure Msg Jacqui Beaver HEALTH 350.1.13.10 ity of [place] [facility] 4.2.7.2.686 Adrien as BORIS?BLEA [phone] [address] 2021-09-28 2021-09-28 Outpatient [facility] [id number] Univers 15:30:00 15:30:00 [facility] 2021-09-28 2021-09-28 Outpatient R [facility] [id number] Univers 15:30:00 15:30:00 [facility] 2021-09-27 2021-09-27 Outpatient [facility] [id number] Univers 10:40:00 10:40:00 PRINCESS [facility] 2021-09-27 2021-09-27 Telephone [facility] 1.2.689.062 [id number] Univers 00:00:00 00:00:00 Blessing Herr HEALTH 350.1.13.10 i ty of [place] 4.2.7.2.686 Adrien as BORIS?BLEA [phone] [address] OFFICE [facility] 2021-09-26 2021-09-26 Outpatient R BRENDEN [facility] [id number] Univers 14:00:00 14:00:00 SHANNAN [facility] 2021-09-21 2021-09-21 [facility] BLADIMIR Crespo [id number] Univers 15:19:00 23:59:00 Encounter Cass Walls 350.1.13.10 ity of [facility] 4.2.7.2.686 Adrien as [phone] [address] 2021-09-21 2021-09-21 [facility] [id number] Univers 00:00:00 23:59:00 CASS [facility] 2021-09-20 2021-09-20 Jack [facility], Ang - Db [facility] [id number] Univers 11:00:00 11:15:00 Visit Blessing Yanes Nemesio HEALTH 350.1.13.10 ity of [place] 4.2.7.2.686 Adrien as BORIS?BLEA [phone] [facility] [address] MEDICAL OFFICE [facility] 2021-09-20 2021-09-20 Outpatient R [facility] [id number] Univers 11:00:00 11:00:00 BLESSING [facility] 2021-09-20 2021-09-20 Office [facility] [id number] [id number] Univers 10:30:00 11:00:00 Visit Blessing Herr HEALTH 350.1.13.10 i ty of [place] 4.2.7.2.686 Adrien as BORIS?BLEA [phone] [facility] [address] MEDICAL OFFICE [facility] 2021-09-20 2021-09-20 Outpatient R [facility] [id number] Univers 10:30:00 10:30:00 BLESSING [facility] 2021-09-20 2021-09-20 Telephone [facility] [id number] Univers 00:00:00 00:00:00 Blessing Herr HEALTH 350.1.13.10 i ty of [place] 4.2.7.2.686 Adrien as BORIS?BLEA [phone] [facility] [address] MEDICAL OFFICE BUILDING 2021-09-18 2021-09-18 Telephone [facility] [id number] Univers 00:00:00 00:00:00 Dilip CARLOS 350.1.13.10 ity of [place]2.7.2.[place] [phone] Md dical NAL 9 [facility] 2021-09-15 2021-09-15 Patient [facility] 1.2.840.114 [id number] Univers 00:00:00 00:00:00 Secure Msg Jacqui Beaver [facility] 350.1.13.10 ity [place] [facility] 4.2.7.2.686 Adrien as BORIS?BLEA [phone] Md susanna FERRARI [address] [facility] OFFICE [facility] 2021-09-14 2021-09-14 Outpatient Sofia MATOS [facility] [id number] Univers 13:42:35 23:59:00 [facility] 2021-09-14 2021-09-14 Outpatient R DEVEN [facility] [id number] Univers 15:00:00 15:27:51 RICARDABEAU cony o f [facility] 2021-09-14 2021-09-14 Office [facility] 1.2.840.114 [id number] Univers 15:00:00 15:27:51 Visit Dilip CARLOS 350.1.13.10 ity [facility] 4[place]2.7.2.[place] [phone] [id number] [address] 2021-09-14 2021-09-14 Outpatient R DEVEN [facility] [id number] Univers 15:00:00 15:00:00 RICARDABEAU cony o f [facility] 2021-09-14 2021-09-14 Outpatient R CARLO [facility] [id number] Univers 14:00:00 14:00:00 KORY [facility] 2021-09-14 2021-09-14 Jack Spooler Tender Therapist, Adc Respiratory [facility] 1.2.840.114 [id number] Univers 12:30:00 12:45:00 Visit Thanh Gay 350.1.13. 10 ity of [place] [id number] [facility] [address] 2021-09-14 2021-09-14 Outpatient R GAY, [facility] [id number] Univers 12:30:00 12:30:00 THANH [facility] 2021 2021 Outpatient R DEANN, [facility] [id number] Univers 13:40:00 13:40:00 PRINCESS [facility] 2021-09-06 2021-09-06 Telephone [facility] [id number] Univers 00:00:00 00:00:00 Blessing MONTEIRO 350.1.13.10 i ty of [place] 4.2.7.2.686 Adrien as BORIS?BLEA [id number] Md ana paula[address] MEDICAL OFFICE BUILDING 2021-09-05 2021-09-05 Outpatient R [facility] [id number] Univers 13:30:00 15:06:45 KAY alonso [facility] 2021-09-05 2021-09-05 Office [facility] 1.2.840.114 [id number] Univers 13:30:00 15:06:45 Visit Kay BARR 350.1.13.10 ity storm MARI 4.2.7.2.686 [facility] [place] [id number] [facility] [place] [address] [facility] 2021-09-05 2021-09-05 Outpatient R IHSAN [facility] [id number] Univers 13:30:00 13:30:00 KAY alonso [facility] 2021-09-05 2021-09-05 Outpatient R IHSAN [facility] [id number] Univers 13:30:00 13:30:00 KAY alonso [facility] 2021-09-04 2021-09-04 Office MELIZA Morales 1.2.077.249 [id number] Univers 08:00:00 08:53:32 Visit Betty Murphy 350.1.13.10 i ty of 4.2.7.2.686 Adrien as [place] [phone] [facility] BLDG. [address] 2021-09-04 2021-09-04 Outpatient R CARMEN, [facility] [id number] Univers 08:00:00 08:53:32 BETTY ity o f [facility] 2021-09-04 2021-09-04 Outpatient R CARMEN, [facility] [id number] Univers 08:00:00 08:53:32 BETTY ity o f [facility] 2021-09-04 2021-09-04 Outpatient R MORALES, [facility] [id number] Univers 08:00:00 08:00:00 BETTY ity o f [facility] 2021-09-04 2021-09-04 Outpatient R MORALES, [facility] [id number] Univers 08:00:00 08:00:00 BETTY ity o [facility] 2021-08-31 2021-08-31 [facility] 1.2.840.114 [id number] Univers 08:07:43 23:59:00 Encounter Blessing CARLOS 350.1.13.10 ity of [place] 4.2.7.2.686 [facility] [place] [id number] [facility] [address] 2021-08-31 2021-08-31 [facility] 1.2.840.114 [id number] Univers 08:06:25 08:06:25 Encounter Sindy CARLOS 350.1.13.10 ity of [place] 4.2.7.2.686 [facility] [place] [id number] [facility] [address] 2021-08-31 2021-08-31 [facility] 1.2.840.114 [id number] Univers 08:06:11 08:06:11 Encounter Sindy CARLOS 350.1.13.10 ity of [place] 4.2.7.2.686 [facility] [place] [id number] [facility] [address] 2021-08-31 2021-08-31 Outpatient R SINDY ONEILL [facility] [id number] Univers 08:06:11 08:06:11 SINDY ONEILL [facility] 2021-08-31 2021-08-31 Outpatient R SINDY ONEILL [facility] [id number] Univers 08:06:11 08:06:11 SINDY ONEILL [facility] 2021-08-31 2021-08-31 [facility] 1.2.840.114 [id number] Univers 08:04:49 08:05:00 Encounter Sindy TOMASBEAU 350.1.13.10 ity [facility] 4.2.7.2.686 [facility] [id number] [facility] [address] 2021-08-31 2021-08-31 Outpatient R SINDY ONEILL [facility] [id number] Univers 08:04:32 08:05:00 SINDY ONEILL [facility] 2021-08-31 2021-08-31 [facility] 1.2.840.114 [id number] Univers 08:04:32 08:05:00 Encounter Sindy TOMASBEAU 350.1.13.10 ity [facility] 4.2.7.2.686 [facility] [id number] [facility] [address] 2021-08-31 2021-08-31 Outpatient R SINDY ONEILL [facility] [id number] Univers 00:00:00 00:00:00 SINDY ONEILL [facility] 2021-08-31 2021-08-31 Outpatient R FARZANA [facility] [id number] Univers 00:00:00 00:00:00 BLESSING joie [facility] 2021-08-22 2021-08-22 Orders Doctor ALEM 1.2.840.114 [id number] Univers 00:00:00 00:00:00 Only Unassigned, LUIS ARMANDO 350.1.13.10 ity of [facility] 4.2.7.2.686 Adrien [id number] [facility] [address] 2021-08-21 2021-08-21 [address] [facility] [id number] Univers 13:00:00 14:01:28 KORY [facility] 2021-08-21 2021-08-21 Office Matos, [facility] 1.2.840.114 [id number] Univers 13:00:00 14:01:28 Visit Kory HEALTH 350.1.13.10 it y of [place] 4.2.7.2.686 [place] a [place] [id number] [address] OFFICE [facility] 2021-08-21 2021-08-21 Outpatient R CARLO, [facility] [id number] Univers 13:00:00 14:01:28 KORY ity of [facility] 2021-08-21 2021-08-21 Office Matos, [facility] 1.2.840.114 [id number] Univers 13:00:00 14:01:28 Visit Kory HEALTH 350.1.13.10 it y of [place] 4.2.7.2.686 [place] [phone] [address] OFFICE [facility] 2021-08-21 2021-08-21 Telephone Farzana, [facility] 1.2.166.104 [id number] Univers 00:00:00 00:00:00 Blessing A HEALTH 350.1.13.10 i ty of [place] 4.2.7.2.686 Adrien as BORIS?BLEA [phone] [address] OFFICE [facility] 2021-08-21 2021-08-21 Telephone Farzana, [facility] 1.2.613.659 [id number] Univers 00:00:00 00:00:00 Blessing A HEALTH 350.1.13.10 i ty of [place] 4.2.7.2.686 Adrien as BORIS?BLEA [id number] [address] OFFICE BUILDING 2021-08-21 2021-08-21 Telephone Matos, [facility] 1.2.992.590 [id number] Univers 00:00:00 00:00:00 Kory HEALTH 350.1.13.10 it y of [place] 4.2.7.2.686 [place] [id number] [address] OFFICE BUILDING 2021-08-21 2021-08-21 Telephone Matos, [facility] 1.2.937.709 [id number] Univers 00:00:00 00:00:00 Kory HEALTH 350.1.13.10 it y of [place] 4.2.7.2.686 [place] nemesio FAR[place] [id number] [facility] [address] OFFICE BUILDING 2021-08-21 2021-08-21 Telephone [facility] 1.2.208.612 [id number] Univers 00:00:00 00:00:00 Blessing A HEALTH 350.1.13.10 i ty of [place] 4.2.7.2.686 Adrien as BORIS?BLEA [phone] Md susanna FERRARI[address] OFFICE [facility] 2021-08-21 2021-08-21 Telephone [facility] 1.2.305.393 [id number] Univers 00:00:00 00:00:00 Alfred HEALTH 350.1.13.10 it y of [place] 4.2.7.2.686 Adrien as BORIS?BLEA [phone] Md susanna FERRARI[address] OFFICE [facility] 2021-08-21 2021-08-21 Patient Doctor [facility] 1.2.840.114 [id number] Univers 00:00:00 00:00:00 Secure Msg Unassigned, HEALTH 350.1.13.10 ity of [place] 4.2.7.2.686 Adrien as BORIS?BLEA [id number] Md susanna ROWAN [address] [place] [address] OFFICE [facility] 2021-08-18 2021-08-18 Outpatient Sofia MORALES [facility] [id number] Univers 09:15:00 09:15:00 BETTYSILVIA donnelly o [facility] 2021-08-18 2021-08-18 Outpatient Sofia MORALES, [facility] [id number] Univers 09:15:00 09:15:00 BETTY ity o f [facility] 2021-08-18 2021-08-18 Telephone [facility] 1.2.521.199 [id number] Univers 00:00:00 00:00:00 Blessing A HEALTH 350.1.13.10 i ty of [place] 4.2.7.2.686 Adrien as BORIS?BLEA [id number] [address] MEDICAL OFFICE [facility] 2021-08-17 2021-08-17 Outpatient R [facility] [id number] Univers 13:00:00 13:00:00 TOBI OLVERA joie [facility] 2021-08-17 2021-08-17 Outpatient R WADE [facility] [id number] Univers 13:00:00 13:00:00 GRISELDA OLVERACTTito joie [facility] 2021-08-17 2021-08-17 Outpatient R WADE [facility] [id number] Univers 13:00:00 13:00:00 WADE [facility] 2021-08-17 2021-08-17 Telephone [facility] 1.2.612.682 [id number] Univers 00:00:00 00:00:00 Alfred HEALTH 350.1.13.10 it y of [place] 4.2.7.2.686 Adrien as BORIS?BLEA [phone] [address] OFFICE [facility] 2021-08-17 2021-08-17 Refill [facility] 1.2.840.114 [id number] Univers 00:00:00 00:00:00 Blessing A HEALTH 350.1.13.10 i ty of [place] 4.2.7.2.686 Adrien as BORIS?BLEA [id number] [address] OFFICE [facility] 2021-08-16 2021-08-16 Outpatient R CARLO [facility] [id number] Univers 12:00:00 12:00:00 KORY [facility] 2021-08-16 2021-08-16 Outpatient R CARLO [facility] [id number] Univers 12:00:00 12:00:00 KORY [facility] 2021-08-16 2021-08-16 Outpatient R CARLO [facility] [id number] Univers 12:00:00 12:00:00 [facility] 2021-08-16 2021-08-16 Telephone [facility] 1.2.840.114 [id number] Univers 00:00:00 00:00:00 Soha CARLOS 350.1.13.10 i ty of [facility] 4.2.7.2.686 [place] [id number] [address] 2021-08-14 2021-08-14 Outpatient R SINDY ONEILL [facility] [id number] Univers 15:18:48 23:59:00 SINDY ONEILL joie [facility] 2021-08-14 2021-08-14 [facility] [id number] Univers 15:18:48 23:59:00 SINDY ONEILL [facility] 2021-08-10 2021-08-10 Out[address] [facility] [id number] Univers 15:00:00 15:45:32 SOHA [facility] 2021-08-10 2021-08-10 Office [facility] 1.2.783.635 [id number] Univers 15:00:00 15:45:32 Visit Soha TOMASBEAU 350.1.13.10 i ty of [place].2.[place] [phone] [address] 2021-08-10 2021-08-10 Out[address] [id number] Univers 15:00:00 15:45:32 SOHA [facility] 2021-08-10 2021-08-10 Outpatient R [facility] [id number] Univers 15:00:00 15:45:32 SOHA [facility] 2021-08-10 2021-08-10 Outpatient R [address] [id number] Univers 15:00:00 15:00:00 SOHA [facility] 2021-08-09 2021-08-09 Isabella [facility] 1.2.840.114 [id number] Univers 00:00:00 00:00:00 Kay BARR 350.1.13.10 ity of [place].2.[place] C[place] [id number] [address] [facility] 2021-08-09 2021-08-09 Refmarah Bush [facility] 1.2.840.114 [id number] Univers 00:00:00 00:00:00 Kay Tito MULTISPEC 350.1.13.10 ity of [place].2.686 [place] C[place] [phone] [address] [facility] 2021-08-09 2021-08-09 Refill [facility] 1.2.840.114 [id number] Univers 00:00:00 00:00:00 Unassigned, PRIMARY 350.1.13.10 ity of [place]2.[place].2.[place] [id number] [address] 2021-08-04 2021-08-04 Patient [facility] 1.2.840.114 [id number] Univers 00:00:00 00:00:00 Secure Msg Blessing A HEALTH 350.1.13.10 ity of [place] 4.2.7.2.686 Adrien as BORIS?BLEA [phone] [address] MEDICAL OFFICE [facility] 2021-08-04 2021-08-04 Patient [facility] 1.2.840.114 [id number] Univers 00:00:00 00:00:00 Secure Msg Blessing A HEALTH 350.1.13.10 ity of [place] 4.2.7.2.686 Adrien as BORIS?BLEA [id number] [address] MEDICAL OFFICE BUILDING 2021-08-02 2021-08-02 Office MELIZA Oneill 1.2.294.028 [id number] Univers 11:30:00 11:30:00 Visit Sindy MONTEIRO 350.1.13.10 i ty of [place] [id number] [address] 2021-08-02 2021-08-02 Outpatient R SINDY ONEILL [facility] [id number] Univers 11:30:00 11:24:07 SINDY ONEILL [facility] 2021-07-28 2021-07-28 Outpatient R SINDY ONEILL [facility] [id number] Univers 13:00:00 13:00:00 SINDY ONEILL [facility] 2021-07-26 2021-07-26 Outpatient R [facility] [id number] Univers 15:20:22 23:59:00 BLESSING donnelly [facility] 2021-07-26 2021-07-26 [facility] 1.2.840.114 [id number] Univers 15:00:00 23:59:00 Encounter Blessing CARLOS 350.1.13.10 ity [facility] 4.2.7.2.686 [facility] [id number] [facility] [address] 2021-07-21 2021-07-21 Outpatient R [facility] [id number] Univers 14:30:00 15:16:04 BLESSING joie [facility] 2021-07-19 2021-07-19 Outpatient R [address] [facility] [id number] Univers 09:00:00 09:00:00 BLESSING donnelly [facility] 2021-07-14 2021-07-14 Outpatient R [facility] [id number] Univers 10:00:00 11:07:33 BLESSING joie [facility] 2021-07-14 2021-07-14 Orders Doctor FERRARA 1.2.840.114 [id number] Univers 00:00:00 00:00:00 Only Unassigned, LUIS ARMANDO 350.1.13.10 ity of [facility] 4.2.7.2.686 [facility] [phone] [facility] [address] 2021-07-12 2021-07-12 Outpatient R JERMAINE [facility] [id number] Univers 10:00:00 10:00:00 JUVE cony [facility] 2021-02-12 2021-02-12 Outpatient PRIV PRIV [id number] 1-2 [facility] 00:00:00 00:00:00 [id number] Medica l 2021-02-12 2021-02-12 Outpatient PRIV PRIV [id number] 1-2 [facility] 00:00:00 00:00:00 [id number] Medica l 2020-12-06 2020-12-06 Outpatient BLOCKPERLA AGUILAR PERLA [id number] Perla 10:45:00 10:45:00 ELLIOT Garcia camille 2020-07-30 2020-07-30 Laboratory Lab, Adc Fam Pob I [facility] 1.2. 840.114 [id number] Univers 16:14:44 16:34:44 [facility] 350.1.13.10 ity [facility] 4.2.7.2.686 Adrien as Robby [id number] Md dical [address] Office Building [facility] 2020-07-30 2020-07-30 Outpatient R PALOMO [facility] [id number] Univers 16:00:00 16:00:00 [facility] 2020-07-28 2020-07-28 Patient Abdon [facility] 1.2.840.114 [id number] Univers 00:00:00 00:00:00 Outreach Joel PRIMARY 350.1.13.10 i ty [facility] 4.2.7.2.686 Maritza GUPTA [phone] Md dical [address] [place] [address] 2020-05-04 2020-05-04 Emergency ER EDD SAEEDS [facility] [id number] [place] 16:03:00 18:07:00 -[id number] [facility] 2020-05-01 2020-05-01 Emergency ER SAUNDRAMADINAE, [facility] [id number] [place] 14:12:00 18:16:00 BAO -[id number] [facility] 2020-04-20 2020-04-21 Emergency ER MEDINA, [facility] [id number] [place] 22:53:00 00:07:00 WASIM -[id number] [facility] 2020-04-04 2020-04-04 Refill Jesse [facility] 1.2.840.114 [id number] Univers 00:00:00 00:00:00 Leandro Braeden PRIMARY 350.1.13.10 ity of [facility] 4.2.7.2.686 Maritza weston ALONSO [id number] [address] 2020-04-04 2020-04-04 Isabella [facility] 1.2.840.114 [id number] 00:00:00 00:00:00 Leandro Deras [facility] 350.1.13.10 CARE 4.2.7.2.686 PAVILLION [id number] [facility] 2020-03-18 2020-03-18 Outpatient FERGUSON_JO MEHOP MEHOP [address] [place] 00:00:00 00:00:00 HN 1106 [facility] 2020-03-14 2020-03-14 Outpatient FERGUSON_JO MEHOP MEHOP [address] [place] 04:45:00 04:45:00 HN 1102 [facility] 2020-02-29 2020-02-29 Outpatient Sofia MORALES [facility] [id number] Univers 08:45:00 08:45:00 BETTY pickering [facility] 2020-02-26 2020-02-26 Emergency ER OWO, TOKS [facility] [id number] [place] 10:15:00 12:20:00 -[id number] [facility] 2020-02-26 2020-02-26 Outpatient FERGUSON_JO MEHOP MEHOP [address]14 [place] 09:48:00 09:48:00 HN 1016 [facility] 2020-02-25 2020-02-25 Outpatient FERGUSON_JO MEHOP MEHOP [address]14 [place] 01:22:00 01:22:00 HN 1015 [facility] 2020-02-19 2020-02-20 Emergency ER AVALOS, [facility] [id number] [place] 21:17:00 03:38:00 DOMINGO -[id number] [facility] 2020-02-17 2020-02-17 Outpatient BELIA GUILLERMO [facility] [id number] Univers 11:00:00 11:00:00 ity [facility] 2020-02-10 2020-02-10 Emergency ER OWO, TOKS [facility] [id number] [place] 16:26:00 19:59:00 -[id number] [facility] 2019-12-31 2019-12-31 Emergency ER OWO, HAFSA [facility] [id number] [place] 17:19:00 19:23:00 -[id number] [facility] 2019-11-26 2019-11-26 Emergency ER SAIFI, [facility] [id number] [place] 09:27:00 11:17:00 [facility] -[id number] [facility] 2019-11-20 2019-11-20 [facility] 1.2.389.407 [id number] Univers 00:00:00 00:00:00 Leandro Deras PRIMARY 350.1.13.10 [place] [id number] [address] 2019-11-20 2019-11-20 Telephone [facility] 1.2.963.973 [id number] 00:00:00 00:00:00 Leandro Deras PRIMARY 350.1.13.10 CARE 4.2.7.2.686 PAVILLION [id number] 389 2019-11-13 2019-11-13 Telephone [facility] 1.2.195.689 [id number] Univers 00:00:00 00:00:00 Leandro Deras PRIMARY 350.1.13.10 it[place] of [place] [id number] [address] 2019-11-13 2019-11-13 Telephone [facility] 1.2.811.952 [id number] 00:00:00 00:00:00 Leandro Deras PRIMARY 350.1.13.10 CARE 4.2.7.2.686 PAVILLION [id number] 389 2019-10-28 2019-10-28 Outpatient R UNKNOWN, [facility] [id number] Univers 10:40:00 10:40:00 ATTENDING ity of [facility] 2019-09-29 2019-09-29 Patient Doctor [facility] 1.2.840.114 [id number] 00:00:00 00:00:00 Secure Msg Unassigned, PRIMARY 350.1.13.10 [place] CARE 4.2.7.2.686 PAVILLION [id number] 390 2019-09-29 2019-09-29 Patient Doctor [facility] 1.2.840.114 [id number] Univers 00:00:00 00:00:00 Secure Msg Unassigned, PRIMARY 350.1.13.10 ity of [place]2.[place] [id number] Md dical [address] 2019-09-15 2019-09-15 Telephone Jesse [facility] 1.2.107.137 [id number] 00:00:00 00:00:00 Leandro Deras PRIMARY 350.1.13.10 CARE 4.2.7.2.686 PAVILLION [id number] 389 2019-09-15 2019-09-15 [facility]phone [facility] 1.2.310.966 [id number] [facility] 00:00:00 00:00:00 Leandro Deras PRIMARY 350.1.13.10 it[place] of [place] [id number] [facility] [address] 2019-09-10 2019-09-10 Jack Spooler Tender [facility] 1.2.840.114 [id number] 12:34:34 12:44:34 Visit MULTISPEC 350.1.13.10 I[place] 4.2.7.2.686 CENTER [id number] [place] [address] [facility] 2019-09-10 2019-09-10 Jack Spooler Tender [facility] 1.2.840.114 [id number] [facility] 12:34:34 12:44:34 Visit Samir Conner MULTISPEC 350.1.13.10 [place] of [place] [id number] [facility] AND [address] DI[facility]ETES CLINIC 2019-09-10 2019-09-10 Outpatient R SAMIR CONNER [facility] [id number] [facility] 12:40:00 12:40:00 ity of [facility] 2019-08-18 2019-08-18 Patient [facility] 1.2.840.114 [id number] 00:00:00 00:00:00 Secure Msg Leandro Deras PRIMARY 350.1.13.10 CARE 4.2.7.2.686 PAVILLION [id number] 390 2019-08-18 2019-08-18 Patient Jesse, [facility] 1.2.840.114 [id number] Univers 00:00:00 00:00:00 Secure Msg Leandro Deras PRIMARY 350.1.13.10 it[place] of [place] 4[place]2.[place].2.[place] [id number] Md dical [address] 2019-08-17 2019-08-17 Patient Doctor [facility] 1.2.840.114 [id number] 00:00:00 00:00:00 Secure Msg Unassigned, PRIMARY 350.1.13.10 [place] CARE 4.2.7.2.686 PAVILLION [id number] 2019-08-17 2019-08-17 Patient Doctor [facility] 1.2.840.114 [id number] Univers 00:00:00 00:00:00 Secure Msg Unassigned, PRIMARY 350.1.13.10 ity of [place] 4[place]2.7.2.[place] [id number] Md dicga [address] 2019-08-14 2019-08-14 Outpatient R UNKNOWN, [facility] [id number] Univers 12:10:00 12:10:00 ATTENDING ity of [facility] 2019-08-14 2019-08-14 Jack Spooler Tender Pcp-Lab [facility] 1.2.840.114 [id number] 11:02:02 11:12:02 Visit PRIMARY 350.1.13.10 CARE 4.2.7.2.686 PAVILLION [id number] 2019-08-14 2019-08-14 Jack Spooler Tender Pcp-Lab [facility] 1.2.840.114 [id number] Univers 11:02:02 11:12:02 Visit Unknown, Attending PRIMARY 350.1.13.10 ity of [place], [place] CARE 4.2.7.2.686 [place] PAVILLION [id number] Md dicga [address] 2019-08-12 2019-08-12 [facility].840.114 [id number] 14:32:03 15:02:03 ne Visit Salvatore PRIMARY 350.1.13.10 CARE 4.2.7.2.686 PAVILLION [id number] 390 2019-08-12 2019-08-12 Telemedici Salvatore Ambriz [facility] 1.2.840 .114 [id number] [facility] 14:32:03 15:02:03 ne Visit Unknown, Attending PRIMARY 350.1.13.1 0 [place] 4[place]7.2.[place] [id number] [address] 2019-08-12 2019-08-12 Outpatient R UNKNOWN, [facility] [id number] Univers 14:50:00 14:50:00 ATTENDING ity of [facility] 2019-08-12 2019-08-12 [facility] [id number] [id number] 00:00:00 00:00:00 Leandro Deras PRIMARY 350.1.13.10 CARE 4.2.7.2.686 PAVILLION [id number] 389 2019-08-12 2019-08-12 [facility] [id number] [id number] [facility] 00:00:00 00:00:00 Leandro Deras PRIMARY 350.1.13.10 [place] of [place] [phone] [facility] [address] 2019-08-07 2019-08-10 [facility] 1.2.840.114 [id number] 08:31:45 15:00:40 ne Visit Kay DARBYPEC 350.1.13.10 IALTY 4.2.7.2.686 CENTER [phone] AND JAIRO [facility] DIABETES CLINIC 2019-08-07 2019-08-10 [facility]oldoi [facility] 1.2.840.114 [id number] [facility] 08:31:45 15:00:40 ne Visit Kay DARBYPEC 350.1.13.10 [place] C[place] [phone] [facility] AND JAIRO [address] [place] [address] DIABETES CLINIC 2019-08-07 2019-08-07 Outpatient R IHSAN, [facility] [id number] Univers 10:30:00 10:30:00 KAY pickering [facility] 2019-08-04 2019-08-04 Outpatient R ELIZABETH [facility] [id number] Univers 11:00:00 11:00:00 stephane HATFIELDy of MILO [facility] 2019-08-04 2019-08-04 Telemedici Johan Alexander UNIVERSIT 1.2.84 0.114 [id number] Univers 07:35:13 08:05:13 ne Visit Trell Villagomez [facility] 350.1.13 .10 ity of [place] Ny [facility] 4.2.7.2.68 6 [place] [phone] [place] 026591 Branch 2019-08-04 2019-08-04 Telephone Catherine, UNIVERSIT 1.2.840.114 [id number] Univers 00:00:00 00:00:00 Johan [facility] 350.1.13.10 i ty of CLINICS [place] [phone] [facility] 071 [address] 2019-08-04 2019-08-04 Orders Doctor ALEM 1.2.840.114 [id number] Univers 00:00:00 00:00:00 Only Unassigned, LUIS ARMANDO 350.1.13.10 ity of [place] [facility] 4.2.7.2.686 Adrien as [phone] [facility] 009 [address] 2019-08-03 2019-08-03 Ref[facility] 1.2.840.114 [id number] Univers 00:00:00 00:00:00 Mostafa MULTISPEC 350.1.13.10 ity of Silas MARI 4.2.7.2.686 [facility] [phone] [facility] AND GILL [address] DIABETES CLINIC 2019-08-03 2019-08-03 [facility] 1.2.840.114 [id number] Univers 00:00:00 00:00:00 Mostafa MULTISPEC 350.1.13.10 ity of [place] MARI 4.2.7.2.686 [facility] [phone] [facility] AND GILL [address] DIABETES CLINIC 2019-08-03 2019-08-03 Telephone [facility] [id number] [id number] Univers 00:00:00 00:00:00 Leandro Deras PRIMARY 350.1.13.10 it[place] [phone] Md dical [address] 2019-08-03 2019-08-03 Telephone [facility] 1.2.840.114 [id number] Univers 00:00:00 00:00:00 Kay DARBYPEC 350.1.13.10 ity of IALTY 4.2.7.2.686 [facility] [id number] [facility] AND GILL [address] DIABETES [facility] 2019-07-20 2019-07-20 Emergency ER GALILEAHEAVEN, [facility] [id number] [place] 20:16:00 21:34:00 SHANNEN -[id number] [facility] 2019-06-23 2019-06-23 Emergency ER JAZMIN, [facility] [id number] [place] 15:06:00 17:30:00 ALYSSA -[id number] [facility] 2019-06-05 2019-06-05 Emergency ER RUPERT, [facility] [id number] [place] 16:39:00 19:48:00 BAO -[id number] [facility] 2019-06-05 2019-06-05 Telephone [employer] UNIVERSIT 1.2.840.11 [id number] Univers 00:00:00 00:00:00 henok, Juan Y 350.1.13.10 ity of NATIONAL 4.2.7.2.686 Adrien as BANK [phone] [facility] BLDG. [address] 2019-05-19 2019-05-19 Clinic Puthenparam UNIVERSIT 1.2.840.114 [id number] Univers 00:00:00 00:00:00 Assessment henok, Juan Y 350.1.13.10 ity of NATIONAL 4.2.7.2.686 Adrien as BANK [phone] [facility] BLDG. 136 [address] 2019-03-05 2019-03-05 Outpatient Young_J MMG G [id number] [address] [place] 03:44:00 03:44:00 024 Medical Group 2019-03-01 2019-03-01 Emergency ER TRELL, [facility] [id number] [place] 15:15:00 18:55:00 PATI -[id number] [facility] 2019-01-26 2019-01-26 Telephone Jesse [facility] 1.2.027.617 [id number] Univers 00:00:00 00:00:00 Leandro Deras PRIMARY 350.1.13.10 it[place] of [place] [phone] Md dical [address] 2019-01-21 2019-01-21 Emergency ER RUPERT, [facility] [id number] [place] 17:43:00 20:38:00 BAO -[id number] [facility] 2018-12-30 2018-12-30 Office Elver Cyr [facility] 1.2 .840.114 [id number] Univers 14:33:52 16:12:24 Visit Unknown, Attending PRIMARY 350.1.13.10 ity of Belia Metz [facility] 4.2.7.2.686 [place] [phone] Md dical [address] 2018-12-12 2018-12-12 Orders Doctor ALEM 1.2.840.114 [id number] Univers 00:00:00 00:00:00 Only Unassigned, LUIS ARMANDO 350.1.13.10 ity of [place] [facility] 4.2.7.2.686 Adrien as [phone] [facility] 009 [address] 2018-12-05 2018-12-05 Transition Blaine Longo 1.2.840.114 [id number] Univers 00:00:00 00:00:00 of Care Nicky Frankely 350.1.13.10 it y of [place] [id number] [facility] [address] 2018-12-02 2018-12-04 Hospital Mary Howell 1.2.840.114 [id number] Univers 00:29:00 19:45:00 Encounter Torito-Mikey Statony 35 0.1.13.10 ity of Emiliano Cheung [facility] 4.2.7.2.686 [place] [phone] [facility] 090 [address] 2018-12-04 2018-12-04 Telephone REBA Pino 1.2.840.114 [id number] Univers 00:00:00 00:00:00 [facility] 350.1.13.10 it y of [place] Rodriguez [place] 4.2.7.2.686 [facility] [id number] [facility] Primary & [address] Specialty Care 2018-12-02 2018-12-02 Orders Doctor ALEM 1.2.840.[id number] [place] [address] 00:00:00 00:00:00 Only Unassigned, LUIS ARMANDO 350.1.13.10 ity [place] [facility] 4.2.7.2.686 [facility] as [phone] [facility] 009 [address] 2018-11-29 2018-12-01 Inpatient ER Elina, [facility] [id number] [place] 19:48:00 23:00:00 Esan -[id number] [facility] 2018-11-28 2018-11-29 Emergency ER MERRICK [facility] [id number] [place] 20:53:00 01:14:00 SHANNEN -[id number] [facility] 2018-04-03 2018-04-03 Emergency ER JAZMIN [facility] [id number] [place] 19:12:00 21:48:00 ALYSSA -[id number] [facility] 2017-07-31 2017-07-31 Emergency E [facility] [id number] Medical 19:16:00 19:16:00 [facility] 2017-05-30 2017-05-30 A[facility] 3 [id number] [place] 13:00:00 13:00:00 t; Jinny FONTAINE Ph greg Reid M.D. 2017-04-23 2017-04-23 AURELIA Knutson UTP [id number] [place] 09:15:00 09:15:00 t; Jo Ann FONTAINE. greg Reid M.D. 2013-08-09 2013-08-09 Emergency ER BA, RICHARD [facility] [id number] [place] 19:09:00 22:27:00 -[id number] [facility] 2013-05-11 2013-05-11 Emergency ER MEDINA, [facility] [id number] [place] 02:30:00 05:46:00 WAS -[id number] [facility] 2013-04-18 2013-04-18 Emergency ER UGORJI, [facility] [id number] [address] [place] 01:08:00 04:45:00 CLEDARRICK -[id number] [facility] 2013-03-26 2013-03-26 Outpatient EL D'ANN, [facility] [id number] [place] 09:38:00 09:38:00 [facility] -[id number] [facility] 2013-03-09 2013-03-09 Emergency ER DONOVAN, [facility] [id number] [place] 19:03:00 20:05:00 MIKAELA -[id number] [facility] 2012-12-04 2012-12-06 Inpatient ER D'ANN, [facility] [id number] [address] [place] 21:36:00 14:11:00 [facility] -[id number] [facility] 2012-12-01 2012-12-02 Emergency ER BA, RICHARD [facility] [id number] [place] 22:29:00 01:22:00 -[id number] [facility] 2012-11-27 2012-11-27 Outpatient UR TARSHA, [facility] [id number] [place] 10:49:00 10:49:00 STEVEN -[id number] [facility] 2012-11-18 2012-11-18 Emergency ER UGORJI, [facility] [id number] [address] [place] 12:50:00 15:39:00 CLEDARRICK -[id number] [facility] 2012-08-01 2012-08-01 Emergency ER UGORJI, [facility] [id number] 61 [place] 17:26:00 20:49:00 CLEMENT -[id number] [facility] 2012-07-19 2012-07-19 Emergency ER JERSEY, [facility] [id number] [address] [place] 14:19:00 15:44:00 [facility] -[id number] [facility] 2012-07-10 2012-07-10 Outpatient EL Franko, [facility] [id number] [place] 07:04:00 07:04:00 Talat -[id number] [facility] 2012-06-06 2012-06-06 Outpatient EL D'ANN, [facility] [id number] [place] 13:17:00 13:17:00 MATT -[id number] [facility] 2012-06-05 2012-06-06 Emergency ER UGORJI, [facility] [id number] 61 [place] 20:38:00 02:50:00 CLEDARRICK -[id number] [facility] 2012-05-28 2012-06-01 Inpatient EL D'ANN, [facility] [id number] 61 [place] 17:00:00 10:27:00 MATT -[id number] [facility] 2012-03-09 2012-03-09 Emergency ER Bain, [facility] [id number] [place] 21:25:00 22:48:00 Driss -[id number] [facility] 2012-02-29 2012-02-29 Outpatient EL D'ANN, [facility] [id number] [place] 15:16:00 15:16:00 MATT -[id number] [facility] 2012-01-12 2012-01-12 Emergency ER UGORJI, [facility] [id number] 61 [place] 19:42:00 23:53:00 CLEDARRICK -[id number] [facility] 2011-08-14 2011-08-14 Outpatient EL D'ANN, [facility] [id number] [place] 11:58:00 11:58:00 MATT -[id number] [facility] 2011-04-26 2011-04-26 Outpatient EL D'ANN, [facility] [id number] [place] 14:29:00 14:29:00 MATT -[id number] [facility] 2010-10-18 2010-10-19 Emergency ER GERMANIA, [facility] [id number] [address] [place] 20:52:00 01:50:00 CLEMENT -[id number] [facility] 2010-10-13 2010-10-16 Inpatient ELI RAMOS, [facility] [id number] [address] [place] 18:28:00 20:15:00 MATT -[id number] [facility] 2010-09-12 2010-09-14 Inpatient EL RACHEL, [facility] [id number] [address] [place] 12:12:00 13:45:00 [facility] -[id number] [facility] Results Test Description Test Time Test Comments Results Result Comments Source POC-Glucose meter 2022-11-25 08:26:55 Test Item Value Reference Range Interpretation Comme nts POC-Glucose Meter (test code = 141 mg/dL 70-110 H : [facility] [address]) [facility], 770 30: Shaper Set Up Operator/Techni olesya ID = [id number] for Cinda Vines Lab Interpretation (test code = Abnormal 65671-9) [facility] [id number] 08:26:55 Test Item Value Reference Range Interpretation Comments POC-GLUCOSE METER 141 mg/dL 70-110 H : [facility] (BEAKER) (test code = [address]ERT[address] R [facility], 1538) [address]: Shaper Set Up Operator/Techni olesya ID = [id number] for Cinda Cool [id number] 06:43:25 Test Item Value Reference Range Interpretation Comments MAGNESIUM (BEAKER) (test code = 2.2 mg/dL 1.6-2.6 627) Shaper Set Up Operator ID - [id number] 06:43:25 Test Item Value Reference Range Interpretation Comments PHOSPHORUS (BEAKER) (test code = 2.9 mg/dL 2.3-4.7 604) Shaper Set Up Operator ID - MARCOBASIC METABOLIC [id number] 06:43:24 Test Item Value Reference Range Interpretation Comments SODIUM (BEAKER) 142 meq/L 136-145 (test code = 381) POTASSIUM 3.8 meq/L 3.5-5.1 (BEAKER) (test code = 379) CHLORIDE (BEAKER) 110 meq/L 98-107 H (test code = 382) CO2 (BEAKER) 20 meq/L 22-29 L (test code = 355) BLOOD UREA 12 mg/dL 7-21 NITROGEN (BEAKER) (test code = 354) CREATININE 0.82 mg/dL 0.57-1.25 (BEAKER) (test code = 358) GLUCOSE RANDOM 137 mg/dL 70-105 H (BEAKER) (test code = 652) CALCIUM (BEAKER) 8.7 mg/dL 8.4-10.2 (test code = 697) EGFR (BEAKER) 106 Interpretatio n of eGFR (test code = mL/min/1.73 values Stage De scription 1092) sq m Result G1 Chely l or high >=90 G2 Mildly decreased 60-89 G3a Mildl y to moderately 45-5 9 G3b Moderately to s everely 30-44 G4 Severl y decreased 15-29 G5 Kidney failure <15Reported eGF R is based on the CKD-EPI 2020 equation that d oes not use a race coefficientEsti mated GFR is not as accur ate as Creatinine Velma davide in predicting glom erular filtration rate . Estimated GFR is not appl icable for dialysis patien ts Shaper Set Up Operator ID - MARCOCBC W/PLT COUNT & AUTO [id number] 06:01:36 Test Item Value Reference Range Interpretation Comments WHITE BLOOD CELL COUNT (BEAKER) 9.4 K/ L 3.5-10.5 (test code = 775) RED BLOOD CELL COUNT (BEAKER) 4.94 M/ L 4.63-6.08 (test code = 761) HEMOGLOBIN (BEAKER) (test code = 14.5 GM/DL 13.7-17.5 410) HEMATOCRIT (BEAKER) (test code = 44.5 % 40.1-51.0 411) MEAN CORPUSCULAR VOLUME (BEAKER) 90 fL 79-92 (test code = 753) MEAN CORPUSCULAR HEMOGLOBIN 29.4 pg 25.7-32.2 (BEAKER) (test code = 751) MEAN CORPUSCULAR HEMOGLOBIN CONC 32.6 GM/DL 32.3-36.5 (BEAKER) (test code = 752) RED CELL DISTRIBUTION WIDTH 13.9 % 11.6-14.4 (BEAKER) (test code = 412) PLATELET COUNT (BEAKER) (test 138 K/CU MM 150-450 L code = 756) MEAN PLATELET VOLUME (BEAKER) 13.0 fL 9.4-12.4 H (test code = 754) NUCLEATED RED BLOOD CELLS 0 /100 WBC 0-0 (BEAKER) (test code = 413) NEUTROPHILS RELATIVE PERCENT 58 % (BEAKER) (test code = 429) LYMPHOCYTES RELATIVE PERCENT 28 % (BEAKER) (test code = 430) MONOCYTES RELATIVE PERCENT 7 % (BEAKER) (test code = 431) EOSINOPHILS RELATIVE PERCENT 6 % (BEAKER) (test code = 432) BASOPHILS RELATIVE PERCENT 1 % (BEAKER) (test code = 437) NEUTROPHILS ABSOLUTE COUNT 5.45 K/ L 1.78-5.38 H (BEAKER) (test code = 670) LYMPHOCYTES ABSOLUTE COUNT 2.59 K/ L 1.32-3.57 (BEAKER) (test code = 414) MONOCYTES ABSOLUTE COUNT (BEAKER) 0.69 K/ L 0.30-0.82 (test code = 415) EOSINOPHILS ABSOLUTE COUNT 0.58 K/ L 0.04-0.54 H (BEAKER) (test code = 416) BASOPHILS ABSOLUTE COUNT (BEAKER) 0.06 K/ L 0.01-0.08 (test code = 417) IMMATURE GRANULOCYTES-RELATIVE 0.50 % 0.00-1.00 PERCENT (BEAKER) (test code = 2801) POCT-GLUCOSE [id number] 22:23:26 Test Item Value Reference Range Interpretation Comments POC-GLUCOSE METER 186 mg/dL 70-110 H : TESTED A T [facility] 6720 (BEAKER) (test code = [facility] Sofia [facility], 1538) [address]: Shaper Set Up Operator/Techni olesya ID = [id number] for Nicole Esquivel HIGH SENSITIVITY TROPONIN [id number] 19:54:32 Test Item Value Reference Range Interpretation Comments HIGH SENSITIVITY TROPONIN I (test < pg/ml <=35 code = 4009474) The INTELLIGENCE APPLICATIONS STAT High Sensitivity Troponin-I results should be used in conjunction with other diagnostic information such as ECG, clinical observations and information, and patient symptoms to aid inthe diagnosis of [place].BASIC METABOLIC [id number] 19:44:55 Test Item Value Reference Range Interpretation Comments SODIUM (BEAKER) 141 meq/L 136-145 (test code = 381) POTASSIUM 3.9 meq/L 3.5-5.1 (BEAKER) (test code = 379) CHLORIDE (BEAKER) 108 meq/L 98-107 H (test code = 382) CO2 (BEAKER) 21 meq/L 22-29 L (test code = 355) BLOOD UREA 13 mg/dL 7-21 NITROGEN (BEAKER) (test code = 354) CREATININE 0.90 mg/dL 0.57-1.25 (BEAKER) (test code = 358) GLUCOSE RANDOM 123 mg/dL 70-105 H (BEAKER) (test code = 652) CALCIUM (BEAKER) 9.2 mg/dL 8.4-10.2 (test code = 697) EGFR (BEAKER) 104 Interpretatio n of eGFR (test code = mL/min/1.73 values Stage De scription 1092) sq m Result G1 Chely l or high >=90 G2 Mildly decreased 60-89 G3a Mildl y to moderately 45-5 9 G3b Moderately to s everely 30-44 G4 Severl y decreased 15-29 G5 Kidney failure <15Reported eGF R is based on the CKD-EPI 2020 equation that d oes not use a race coefficientEsti mated GFR is not as accur ate as Creatinine Velma augustine in predicting glom erular filtration rate . Estimated GFR is not appl icable for dialysis patien ts [id number] 19:44:55 Test Item Value Reference Range Interpretation Comments MAGNESIUM (BEAKER) (test code = 2.1 mg/dL 1.6-2.6 627) [id number] 19:44:55 Test Item Value Reference Range Interpretation Comments PHOSPHORUS (BEAKER) (test code = 2.0 mg/dL 2.3-4.7 L 604) CBC W/PLT COUNT & AUTO [id number] 19:27:50 Test Item Value Reference Range Interpretation Comments WHITE BLOOD CELL COUNT (BEAKER) 11.1 K/ L 3.5-10.5 H (test code = 775) RED BLOOD CELL COUNT (BEAKER) 5.13 M/ L 4.63-6.08 (test code = 761) HEMOGLOBIN (BEAKER) (test code = 15.1 GM/DL 13.7-17.5 410) HEMATOCRIT (BEAKER) (test code = 45.6 % 40.1-51.0 411) MEAN CORPUSCULAR VOLUME (BEAKER) 89 fL 79-92 (test code = 753) MEAN CORPUSCULAR HEMOGLOBIN 29.4 pg 25.7-32.2 (BEAKER) (test code = 751) MEAN CORPUSCULAR HEMOGLOBIN CONC 33.1 GM/DL 32.3-36.5 (BEAKER) (test code = 752) RED CELL DISTRIBUTION WIDTH 13.7 % 11.6-14.4 (BEAKER) (test code = 412) PLATELET COUNT (BEAKER) (test 160 K/CU MM 150-450 code = 756) MEAN PLATELET VOLUME (BEAKER) 12.9 fL 9.4-12.4 H (test code = 754) NUCLEATED RED BLOOD CELLS 0 /100 WBC 0-0 (BEAKER) (test code = 413) NEUTROPHILS RELATIVE PERCENT 60 % (BEAKER) (test code = 429) LYMPHOCYTES RELATIVE PERCENT 27 % (BEAKER) (test code = 430) MONOCYTES RELATIVE PERCENT 8 % (BEAKER) (test code = 431) EOSINOPHILS RELATIVE PERCENT 5 % (BEAKER) (test code = 432) BASOPHILS RELATIVE PERCENT 1 % (BEAKER) (test code = 437) NEUTROPHILS ABSOLUTE COUNT 6.61 K/ L 1.78-5.38 H (BEAKER) (test code = 670) LYMPHOCYTES ABSOLUTE COUNT 2.98 K/ L 1.32-3.57 (BEAKER) (test code = 414) MONOCYTES ABSOLUTE COUNT (BEAKER) 0.83 K/ L 0.30-0.82 H (test code = 415) EOSINOPHILS ABSOLUTE COUNT 0.53 K/ L 0.04-0.54 (BEAKER) (test code = 416) BASOPHILS ABSOLUTE COUNT (BEAKER) 0.08 K/ L 0.01-0.08 (test code = 417) IMMATURE GRANULOCYTES-RELATIVE 0.50 % 0.00-1.00 PERCENT (BEAKER) (test code = 2801) CT BRAIN WITHOUT IV [id number] 18:49:08 [facility] CENTERName: SUDHEER JUAREZ : 1970 Sex: MCT BRAIN WITHOUT IV CONTRASTINDICATION: Stroke, follow upCOMPARISON: 11/22/2022TECHNIQUE: Noncontrast axial CT imaging of the brain and skull. DOSE REDUCTION: Dose modulation, iterative reconstruction, and/orweight-based adjustment of the mA/kV was utilized to reduce theradiation dose to as low as reasonably achievable.FINDINGS:Expected evolution of previously described isodense and hypodense leftcerebral convexity subdural hematoma, which measures up to 8 mm. Smallvolume acute subdural hematoma along theanterior falx is unchanged andmeasures up to 2 mm. No associated midline shift or significant masseffect.No new intracranial hemorrhage.Scattered foci of hypoattenuation are present throughout theperiventricular and subcortical white matter, and, although nonspecificby imaging, statistically representmild chronic microvascular ischemicchanges in this age group.No hydrocephalus.Orbits are within normal limits.No obstructive paranasal sinus disease.IMPRESSION:1. Expected evolution of previously described isodense and hypodenseleft cerebral convexity subdural hematoma, which measures up to 8 mm. 2. Small volume acute subdural hematoma along the anterior falx isunchanged and measures up to 2 mm. No associated midline shift orsignificant mass effect.3. No new intracranial hemorrhage.4. Age-indeterminate lacunar infarct of the left basal ganglia.Electronically Signed By: Sary Maradiaga11/24/2022 18:51 CDTWorkstation Name: [id number]- GLUCOSE [id number] 17:16:25 Test Item Value Reference Range Interpretation Comments POC-GLUCOSE METER 234 mg/dL 70-110 H : TESTED A T [facility] 6720 (BEAKER) (test code = L[place] DIOP [place], 1538) [address]: Shaper Set Up Operator/Techni olesya ID = [id number] for Jean-Pierre Duff POCT-GLUCOSE [id number] 12:48:27 Test Item Value Reference Range Interpretation Comments POC-GLUCOSE METER 153 mg/dL 70-110 H : TESTED A T [facility] 6720 (BEAKER) (test code = LALO Black [facility], 153) [address]: Shaper Set Up Operator/Techni olesya ID = [id number] for Mey Dos Santos POCT-GLUCOSE [id number] 08:34:06 Test Item Value Reference Range Interpretation Comments POC-GLUCOSE METER 199 mg/dL 70-110 H : TESTED A T [facility] 6720 (BEAKER) (test code = LALO Black [facility], 1538) 35607: Shaper Set Up Operator/Techni olesya ID = [id number] for Mey Dos Santos CBC W/PLT COUNT & AUTO [id number] 05:53:53 Test Item Value Reference Range Interpretation Comments WHITE BLOOD CELL COUNT 10.6 K/ L 3.5-10.5 H (BEAKER) (test code = 775) RED BLOOD CELL COUNT 5.16 M/ L 4.63-6.08 (BEAKER) (test code = 761) HEMOGLOBIN (BEAKER) 15.2 GM/DL 13.7-17.5 (test code = 410) HEMATOCRIT (BEAKER) 46.1 % 40.1-51.0 (test code = 411) MEAN CORPUSCULAR 89 fL 79-92 VOLUME (BEAKER) (test code = 753) MEAN CORPUSCULAR 29.5 pg 25.7-32.2 HEMOGLOBIN (BEAKER) (test code = 751) MEAN CORPUSCULAR 33.0 GM/DL 32.3-36.5 HEMOGLOBIN CONC (BEAKER) (test code = 752) RED CELL DISTRIBUTION 14.0 % 11.6-14.4 WIDTH (BEAKER) (test code = 412) PLATELET COUNT 158 K/CU MM 150-450 (BEAKER) (test code = 756) MEAN PLATELET VOLUME 13.4 fL 9.4-12.4 H Unable to report due (BEAKER) (test code = to abn ormal Platelet 754) population distribution. NUCLEATED RED BLOOD 0 /100 WBC 0-0 CELLS (BEAKER) (test code = 413) NEUTROPHILS RELATIVE 55 % PERCENT (BEAKER) (test code = 429) LYMPHOCYTES RELATIVE 30 % PERCENT (BEAKER) (test code = 430) MONOCYTES RELATIVE 8 % PERCENT (BEAKER) (test code = 431) EOSINOPHILS RELATIVE 6 % PERCENT (BEAKER) (test code = 432) BASOPHILS RELATIVE 1 % PERCENT (BEAKER) (test code = 437) NEUTROPHILS ABSOLUTE 5.84 K/ L 1.78-5.38 H COUNT (BEAKER) (test code = 670) LYMPHOCYTES ABSOLUTE 3.23 K/ L 1.32-3.57 COUNT (BEAKER) (test code = 414) MONOCYTES ABSOLUTE 0.81 K/ L 0.30-0.82 COUNT (BEAKER) (test code = 415) EOSINOPHILS ABSOLUTE 0.60 K/ L 0.04-0.54 H COUNT (BEAKER) (test code = 416) BASOPHILS ABSOLUTE 0.06 K/ L 0.01-0.08 COUNT (BEAKER) (test code = 417) IMMATURE 0.70 % 0.00-1.00 GRANULOCYTES-RELATIVE PERCENT (BEAKER) (test code = 2801) BASIC METABOLIC [id number] 05:46:34 Test Item Value Reference Range Interpretation Comments SODIUM (BEAKER) 141 meq/L 136-145 (test code = 381) POTASSIUM 3.8 meq/L 3.5-5.1 (BEAKER) (test code = 379) CHLORIDE (BEAKER) 109 meq/L 98-107 H (test code = 382) CO2 (BEAKER) 21 meq/L 22-29 L (test code = 355) BLOOD UREA 15 mg/dL 7-21 NITROGEN (BEAKER) (test code = 354) CREATININE 0.90 mg/dL 0.57-1.25 (BEAKER) (test code = 358) GLUCOSE RANDOM 132 mg/dL 70-105 H (BEAKER) (test code = 652) CALCIUM (BEAKER) 8.8 mg/dL 8.4-10.2 (test code = 697) EGFR (BEAKER) 104 Interpretatio n of eGFR (test code = mL/min/1.73 values Stage De scription 1092) sq m Result G1 Chely l or high >=90 G2 Mildly decreased 60-89 G3a Mildl y to moderately 45-5 9 G3b Moderately to s everely 30-44 G4 Severl y decreased 15-29 G5 Kidney failure <15Reported eGF R is based on the CKD-EPI 2020 equation that d oes not use a race coefficientEsti mated GFR is not as accur ate as Creatinine Velma augustine in predicting glom erular filtration rate . Estimated GFR is not appl icable for dialysis patien ts [id number] 05:46:34 Test Item Value Reference Range Interpretation Comments MAGNESIUM (BEAKER) (test code = 2.1 mg/dL 1.6-2.6 627) [id number] 05:46:34 Test Item Value Reference Range Interpretation Comments PHOSPHORUS (BEAKER) (test code = 2.6 mg/dL 2.3-4.7 604) POCT-GLUCOSE [id number] 22:01:37 Test Item Value Reference Range Interpretation Comments POC-GLUCOSE METER 169 mg/dL 70-110 H : TESTED A T [facility] 6720 (BEAKER) (test code = [facility], 1538) [id number]: Shaper Set Up Operator/Techni olesya ID = [id number] for Nicole Esquivel POCT-GLUCOSE [id number] 18:12:40 Test Item Value Reference Range Interpretation Comments POC-GLUCOSE METER 231 mg/dL 70-110 H : TESTED A T [facility] 6720 (BEAKER) (test code = [facility], 1538) [id number]: Shaper Set Up Operator/Techni olesya ID = [id number] for Jean-Pierre Duff POCT-GLUCOSE [id number] 13:10:52 Test Item Value Reference Range Interpretation Comments POC-GLUCOSE METER 183 mg/dL 70-110 H : TESTED A T [facility] 6720 (BEAKER) (test code = [facility], 1538) 33691: Shaper Set Up Operator/Techni olesya ID = [id number] for Melissa gibsonon, Triwanda POCT-GLUCOSE [id number] 08:23:00 Test Item Value Reference Range Interpretation Comments POC-GLUCOSE METER 163 mg/dL 70-110 H : TESTED A T [facility] 6720 (BEAKER) (test code = [facility], 1538) 03388: Shaper Set Up Operator/Techni olesya ID = [id number] for Melsisa hnson, Triwanda [id number] 06:47:03 Test Item Value Reference Range Interpretation Comments MAGNESIUM (BEAKER) (test code = 1.9 mg/dL 1.6-2.6 627) Shaper Set Up Operator ID - ADMINOperator ID - [id number] 05:46:13 Test Item Value Reference Range Interpretation Comments PHOSPHORUS (BEAKER) (test code = 2.7 mg/dL 2.3-4.7 604) Shaper Set Up Operator ID - ADMINCBC W/PLT COUNT & AUTO [id number] 04:58:21 Test Item Value Reference Range Interpretation Comments WHITE BLOOD CELL COUNT (BEAKER) 9.7 K/ L 3.5-10.5 (test code = 775) RED BLOOD CELL COUNT (BEAKER) 4.88 M/ L 4.63-6.08 (test code = 761) HEMOGLOBIN (BEAKER) (test code = 14.5 GM/DL 13.7-17.5 410) HEMATOCRIT (BEAKER) (test code = 44.0 % 40.1-51.0 411) MEAN CORPUSCULAR VOLUME (BEAKER) 90 fL 79-92 (test code = 753) MEAN CORPUSCULAR HEMOGLOBIN 29.7 pg 25.7-32.2 (BEAKER) (test code = 751) MEAN CORPUSCULAR HEMOGLOBIN CONC 33.0 GM/DL 32.3-36.5 (BEAKER) (test code = 752) RED CELL DISTRIBUTION WIDTH 13.8 % 11.6-14.4 (BEAKER) (test code = 412) PLATELET COUNT (BEAKER) (test 159 K/CU MM 150-450 code = 756) MEAN PLATELET VOLUME (BEAKER) 13.0 fL 9.4-12.4 H (test code = 754) NUCLEATED RED BLOOD CELLS 0 /100 WBC 0-0 (BEAKER) (test code = 413) NEUTROPHILS RELATIVE PERCENT 58 % (BEAKER) (test code = 429) LYMPHOCYTES RELATIVE PERCENT 28 % (BEAKER) (test code = 430) MONOCYTES RELATIVE PERCENT 8 % (BEAKER) (test code = 431) EOSINOPHILS RELATIVE PERCENT 6 % (BEAKER) (test code = 432) BASOPHILS RELATIVE PERCENT 1 % (BEAKER) (test code = 437) NEUTROPHILS ABSOLUTE COUNT 5.58 K/ L 1.78-5.38 H (BEAKER) (test code = 670) LYMPHOCYTES ABSOLUTE COUNT 2.73 K/ L 1.32-3.57 (BEAKER) (test code = 414) MONOCYTES ABSOLUTE COUNT (BEAKER) 0.73 K/ L 0.30-0.82 (test code = 415) EOSINOPHILS ABSOLUTE COUNT 0.53 K/ L 0.04-0.54 (BEAKER) (test code = 416) BASOPHILS ABSOLUTE COUNT (BEAKER) 0.05 K/ L 0.01-0.08 (test code = 417) IMMATURE GRANULOCYTES-RELATIVE 0.40 % 0.00-1.00 PERCENT (BEAKER) (test code = 2801) POCT-GLUCOSE [id number] 21:08:50 Test Item Value Reference Range Interpretation Comments POC-GLUCOSE METER 170 mg/dL 70-110 H : TESTED A T [facility] 6720 (BEAKER) (test code [facility], = 1538) 04959: Shaper Set Up Operator/Techni olesya ID = [id number] for Thanh Ruiz POCT-GLUCOSE [id number] 17:45:46 Test Item Value Reference Range Interpretation Comments POC-GLUCOSE METER 235 mg/dL 70-110 H : TESTED A T [facility] 6720 (BEAKER) (test code = [facility], 1538) 53012: Shaper Set Up Operator/Techni olesya ID = [id number] for MAUREEN RAMIREZ [id number] 14:58:42 Test Item Value Reference Range Interpretation Comments RPR SCREEN ([facility]) (test code = Nonreactive Nonreactive 420) CT BRAIN WITHOUT IV [id number] 12:27:04 [facility] CENTERName: SUDHEER JUAREZ : 1970 Sex: MCT BRAIN WITHOUT IV CONTRASTINDICATION: Unlisted Reason for ExamCOMPARISON: 11/21/2022TECHNIQUE: Noncontrast axial CT imaging of the brain and skull. DOSE REDUCTION: Dose modulation, iterative reconstruction, and/orweight-based adjustment of the mA/kV was utilized to reduce theradiation dose to as low as reasonably achievable.FINDINGS:Expected evolution of previously described isodense and hypodense leftcerebral convexity subdural hematoma, which measures up to 8 mm. Smallvolume acute subdural hematoma along the anterior falx is unchanged andmeasures up to 2 mm. No associated midline shift or significantmasseffect.No new intracranial hemorrhage.Scattered foci of hypoattenuation are present throughout theperiventricular and subcortical white matter, and, although nonspecificby imaging, statistically represent mild chronic microvascular ischemicchanges in this age group.No hydrocephalus.Orbits are within normal limits.No obstructive paranasal sinus disease.IMPRESSION:1. Expected evolution of previously described isodense and hypodenseleft cerebral convexity subdural hematoma, which measures up to 8 mm. 2. Small volume acute subdural hematoma along the anterior falx isunchanged and measures up to 2 mm. No associated midline shift orsignificant mass effect.3. No new intracranial hemorrhage.If there is persistent clinical concern for intracranial pathology, MRexamination is recommended for further characterization.Electronically Signed By: Sary Maradiaga11/22/2022 12:29 CDTWorkstation Name: [id number] METER 2022-11-22 11:32:35 Test Item Value Reference Range Interpretation Comments POC-GLUCOSE METER 158 mg/dL 70-110 H : TESTED A T [facility] 6720 ([employer]) (test code = [facility] [place], 1538) 86673: Shaper Set Up Operator/Techni olseya ID = [id number] for Julio César Mae HEMOGLOBIN [id number] 11:17:17 Test Item Value Reference Range Interpretation Comments HEMOGLOBIN A1C 8.1 % See_Comment H [Automated essage] ELECTROPHORESIS ([employer]) The system which (test code = 3811) generated this result transmitted ref erence range: <=5.6%. The reference range was not used to int erpret this result as normal/abnormal . "The A1c is measured using a NGSP-certified method. HbA1c value equal to or greater than 6.5% as thediagnosis cutoff for diabetes. An HbA1c value of 5.7- 6.4% indicates increased risk for diabetes (prediabetes)."Shaper Set Up Operator ID - ADMPOCT- GLUCOSE [id number] 08:13:06 Test Item Value Reference Range Interpretation Comments POC-GLUCOSE METER 143 mg/dL 70-110 H : TESTED A T [facility] 6720 (BEAKER) (test code = [facility] [place], 1538) 01984: Shaper Set Up Operator/Techni olesya ID = [id number] for ALEM HARRIS CBC W/PLT COUNT & AUTO [id number] 04:17:53 Test Item Value Reference Range Interpretation Comments WHITE BLOOD CELL COUNT 11.2 K/ L 3.5-10.5 H (BEAKER) (test code = 775) RED BLOOD CELL COUNT 4.78 M/ L 4.63-6.08 (BEAKER) (test code = 761) HEMOGLOBIN (BEAKER) 14.1 GM/DL 13.7-17.5 (test code = 410) HEMATOCRIT (BEAKER) 42.2 % 40.1-51.0 (test code = 411) MEAN CORPUSCULAR 88 fL 79-92 VOLUME (BEAKER) (test code = 753) MEAN CORPUSCULAR 29.5 pg 25.7-32.2 HEMOGLOBIN (BEAKER) (test code = 751) MEAN CORPUSCULAR 33.4 GM/DL 32.3-36.5 HEMOGLOBIN CONC (BEAKER) (test code = 752) RED CELL DISTRIBUTION 13.5 % 11.6-14.4 WIDTH (BEAKER) (test code = 412) PLATELET COUNT 169 K/CU MM 150-450 (BEAKER) (test code = 756) MEAN PLATELET VOLUME Unable to report due (BEAKER) (test code = to abn ormal Platelet 754) population distribution. NUCLEATED RED BLOOD 0 /100 WBC 0-0 CELLS (BEAKER) (test code = 413) NEUTROPHILS RELATIVE 64 % PERCENT (BEAKER) (test code = 429) LYMPHOCYTES RELATIVE 25 % PERCENT (BEAKER) (test code = 430) MONOCYTES RELATIVE 7 % PERCENT (BEAKER) (test code = 431) EOSINOPHILS RELATIVE 3 % PERCENT (BEAKER) (test code = 432) BASOPHILS RELATIVE 0 % PERCENT (BEAKER) (test code = 437) NEUTROPHILS ABSOLUTE 7.13 K/ L 1.78-5.38 H COUNT (BEAKER) (test code = 670) LYMPHOCYTES ABSOLUTE 2.82 K/ L 1.32-3.57 COUNT (BEAKER) (test code = 414) MONOCYTES ABSOLUTE 0.73 K/ L 0.30-0.82 COUNT (BEAKER) (test code = 415) EOSINOPHILS ABSOLUTE 0.38 K/ L 0.04-0.54 COUNT (BEAKER) (test code = 416) BASOPHILS ABSOLUTE 0.05 K/ L 0.01-0.08 COUNT (BEAKER) (test code = 417) IMMATURE 0.50 % 0.00-1.00 GRANULOCYTES-RELATIVE PERCENT (BEAKER) (test code = 2801) [id number] 04:06:03 Test Item Value Reference Range Interpretation Comments MAGNESIUM (BEAKER) (test code = 1.6 mg/dL 1.6-2.6 627) Shaper Set Up Operator ID - [id number] 04:06:03 Test Item Value Reference Range Interpretation Comments PHOSPHORUS (BEAKER) (test code = 3.7 mg/dL 2.3-4.7 604) Shaper Set Up Operator ID - MMBASIC METABOLIC [id number] 04:06:02 Test Item Value Reference Range Interpretation Comments SODIUM (BEAKER) 139 meq/L 136-145 (test code = 381) POTASSIUM 3.9 meq/L 3.5-5.1 (BEAKER) (test code = 379) CHLORIDE (BEAKER) 105 meq/L 98-107 (test code = 382) CO2 (BEAKER) 24 meq/L 22-29 (test code = 355) BLOOD UREA 9 mg/dL 7-21 NITROGEN (BEAKER) (test code = 354) CREATININE 0.82 mg/dL 0.57-1.25 (BEAKER) (test code = 358) GLUCOSE RANDOM 142 mg/dL 70-105 H (BEAKER) (test code = 652) CALCIUM (BEAKER) 9.3 mg/dL 8.4-10.2 (test code = 697) EGFR (BEAKER) 106 Interpretatio n of eGFR (test code = mL/min/1.73 values Stage De scription 1092) sq m Result G1 Chely l or high >=90 G2 Mildly decreased 60-89 G3a Mildl y to moderately 45-5 9 G3b Moderately to s everely 30-44 G4 Severl y decreased 15-29 G5 Kidney failure <15Reported eGF R is based on the CKD-EPI 2020 equation that d oes not use a race coefficientEsti mated GFR is not as accur ate as Creatinine Velma davide in predicting glom erular filtration rate . Estimated GFR is not appl icable for dialysis patien ts Shaper Set Up Operator ID - MMCT BRAIN WITHOUT IV [id number] 01:51:30 [facility] CENTERName: SUDHEER JUAREZ : 1970 Sex: MEXAM/TECHNIQUE: Noncontrast CT of the head. Dose modulation, iterativereconstruction, and/or weight basedadjustment of the mA/kV was utilizedto reduce the radiation dose to as low as reasonably achievable.INDICATION: Subdural hematoma on outside imaging.COMPARISON: None.FINDINGS: Mixed attenuation left subdural hematoma measures 9 mm. Trace acutesubdural or subarachnoid hematoma along the anterior falx. Nosubstantial midline shift is present. Basal and suprasellar cisterns arepatent. No cerebellar tonsillar ectopia. The ventricles are normal inmorphology. No territorial aguilar-white differentiation loss.Aguilar-white differentiation is preserved. No acute intracranialhemorrhage. No extra-axial fluid collection.Ventricles are normal in appearance. Basal cisterns are patent. Nomidline shift. Cerebellar tonsils are normal in appearance.Orbits are normal. Paranasal sinuses are clear. Mastoid air cells areclear. No acute osseous processes or suspicious osseous lesion. Midlinestructures are normal. Visualized face and neck are unremarkable.IMPRESSION:Impression:Left convexity mixed attenuation subdural hematoma measures 9 mm withoutsignificant midline shift. Additionally there is trace anterior falxsubduralor subarachnoid blood. No herniation or hydrocephalusidentified.Per review of notes, findings are kno wn.Electronically Signed By: Ravinder Rojo11/22/2022 01:54 CDTWorkstation Name: [id number] 18:45:00 Test Item Value Reference Range Interpretation Comments VITAMIN B12 (BEAKER) (test code = 383 pg/mL 213-816 774) Shaper Set Up Operator ID - BSHIV-1 ANTIGEN WITH HIV-1/2 [id number] 17:48:38 Test Item Value Reference Range Interpretation Comments HIV-1 ANTIGEN WITH HIV 1\\T\\2 Nonreactive Nonreactive ANTIBODY (2) (BEAKER) (test code = 2586) Shaper Set Up Operator ID - ADMINTSH/FREE T4 IF [id number] 17:48:37 Test Item Value Reference Range Interpretation Comments THYROID STIMULATING HORMONE 1.693 uIU/mL 0.350-4.940 (BEAKER) (test code = 772) Shaper Set Up Operator ID - ADMINHIGH SENSITIVITY TROPONIN [id number] 17:34:01 Test Item Value Reference Range Interpretation Comments HIGH SENSITIVITY TROPONIN I (test < pg/ml <=35 code = 5657001) Shaper Set Up Operator ID - ADMINThe INTELLIGENCE APPLICATIONS STAT High Sensitivity Troponin-I results should be used in conjunction with other diagnostic information such as ECG, clinical observations and information, and patientsymptoms to aid in the diagnosis of [place]. CBC W/PLT COUNT & AUTO [id number] 17:04:31 Test Item Value Reference Range Interpretation Comments WHITE BLOOD CELL COUNT (BEAKER) 9.7 K/ L 3.5-10.5 (test code = 775) RED BLOOD CELL COUNT (BEAKER) 4.94 M/ L 4.63-6.08 (test code = 761) HEMOGLOBIN (BEAKER) (test code = 14.5 GM/DL 13.7-17.5 410) HEMATOCRIT (BEAKER) (test code = 43.9 % 40.1-51.0 411) MEAN CORPUSCULAR VOLUME (BEAKER) 89 fL 79-92 (test code = 753) MEAN CORPUSCULAR HEMOGLOBIN 29.4 pg 25.7-32.2 (BEAKER) (test code = 751) MEAN CORPUSCULAR HEMOGLOBIN CONC 33.0 GM/DL 32.3-36.5 (BEAKER) (test code = 752) RED CELL DISTRIBUTION WIDTH 13.4 % 11.6-14.4 (BEAKER) (test code = 412) PLATELET COUNT (BEAKER) (test 164 K/CU MM 150-450 code = 756) MEAN PLATELET VOLUME (BEAKER) 12.8 fL 9.4-12.4 H (test code = 754) NUCLEATED RED BLOOD CELLS 0 /100 WBC 0-0 (BEAKER) (test code = 413) NEUTROPHILS RELATIVE PERCENT 69 % (BEAKER) (test code = 429) LYMPHOCYTES RELATIVE PERCENT 20 % (BEAKER) (test code = 430) MONOCYTES RELATIVE PERCENT 6 % (BEAKER) (test code = 431) EOSINOPHILS RELATIVE PERCENT 5 % (BEAKER) (test code = 432) BASOPHILS RELATIVE PERCENT 1 % (BEAKER) (test code = 437) NEUTROPHILS ABSOLUTE COUNT 6.66 K/ L 1.78-5.38 H (BEAKER) (test code = 670) LYMPHOCYTES ABSOLUTE COUNT 1.91 K/ L 1.32-3.57 (BEAKER) (test code = 414) MONOCYTES ABSOLUTE COUNT (BEAKER) 0.53 K/ L 0.30-0.82 (test code = 415) EOSINOPHILS ABSOLUTE COUNT 0.47 K/ L 0.04-0.54 (BEAKER) (test code = 416) BASOPHILS ABSOLUTE COUNT (BEAKER) 0.07 K/ L 0.01-0.08 (test code = 417) IMMATURE GRANULOCYTES-RELATIVE 0.50 % 0.00-1.00 PERCENT (BEAKER) (test code = 2801) LIPID [id number] 16:20:15 Test Item Value Reference Range Interpretation Comments TRIGLYCERIDES (BEAKER) (test code = 138 mg/dL 540) CHOLESTEROL (BEAKER) (test code = 156 mg/dL 631) HDL CHOLESTEROL (BEAKER) (test code 31 mg/dL = 976) LDL CHOLESTEROL CALCULATED (BEAKER) 97 mg/dL (test code = 633) Triglyceride Reference Range: Low Risk <150 Borderline 150-199 High Risk 200- 499 Very High Risk >=500Cholesterol Reference Range: Low Risk <200 Borderline 200-239 High Risk >240HDL Cholesterol Reference Range: Low Risk >=60 High Risk <40LDL Cholesterol Reference Range: Optimal <100 Near Optimal 100-129 Borderline 130-159 High 160-189 Very High >=190CREATINE KINASE (CK)2022-11-21 16:20:15 Test Item Value Reference Range Interpretation Comments CREATINE KINASE TOTAL (BEAKER) (test 31 U/L 29-200 code = 380) C-REACTIVE [id number] 16:20:15 Test Item Value Reference Range Interpretation Comments C-REACTIVE PROTEIN (BEAKER) (test 1.08 mg/dL 0.00-0.50 H code = 676) COMPREHENSIVE METABOLIC [id number] 16:20:14 Test Item Value Reference Range Interpretation Comments TOTAL PROTEIN 7.8 gm/dL 6.0-8.3 (BEAKER) (test code = 770) ALBUMIN (BEAKER) 3.7 g/dL 3.5-5.0 (test code = 1145) ALKALINE 98 U/L 40-150 PHOSPHATASE (BEAKER) (test code = 346) BILIRUBIN TOTAL 0.6 mg/dL 0.2-1.2 (BEAKER) (test code = 377) SODIUM (BEAKER) 137 meq/L 136-145 (test code = 381) POTASSIUM (BEAKER) 4.2 meq/L 3.5-5.1 (test code = 379) CHLORIDE (BEAKER) 105 meq/L 98-107 (test code = 382) CO2 (BEAKER) (test 22 meq/L 22-29 code = 355) BLOOD UREA 8 mg/dL 7-21 NITROGEN (BEAKER) (test code = 354) CREATININE 0.84 mg/dL 0.57-1.25 (BEAKER) (test code = 358) GLUCOSE RANDOM 182 mg/dL 70-105 H (BEAKER) (test code = 652) CALCIUM (BEAKER) 9.9 mg/dL 8.4-10.2 (test code = 697) AST (SGOT) 53 U/L 5-34 H (BEAKER) (test code = 353) ALT (SGPT) 44 U/L 6-55 (BEAKER) (test code = 347) EGFR (BEAKER) 106 Interpretatio n of eGFR (test code = 1092) mL/min/1.[address] age Description sq m Result G1 Chely l or high >=90 G2 Mildly decreased 60-89 G3a Mildl y to moderately 45-5 9 G3b Moderately to s everely 30-44 G4 Severl y decreased 15-29 G5 Kidney failure <15Reported eGF R is based on the CKD-EPI 2020 equation that d oes not use a race coefficientEsti mated GFR is not as accur ate as Creatinine Velma davide in predicting glom erular filtration rate . Estimated GFR is not appl icable for dialysis patien ts [id number] 16:20:14 Test Item Value Reference Range Interpretation Comments MAGNESIUM (BEAKER) (test code = 1.6 mg/dL 1.6-2.6 627) [id number] 16:20:14 Test Item Value Reference Range Interpretation Comments PHOSPHORUS (BEAKER) (test code = 3.3 mg/dL 2.3-4.7 604) [id number] 15:37:23 Test Item Value Reference Range Interpretation Comments PARTIAL THROMBOPLASTIN TIME 35.5 seconds 22.5-36.0 (BEAKER) (test code = 760) PROTHROMBIN TIME/[id number] 15:36:45 Test Item Value Reference Range Interpretation Comments PROTIME (BEAKER) (test code = 15.3 seconds 11.9-14.2 H 759) INR (BEAKER) (test code = 370) 1.29 <=5.90 RECOMMENDED COUMADIN/WARFARIN INR THERAPY RANGESSTANDARD DOSE: 2.0 - 3.0 Includes: PROPHYLAXIS for venous thrombosis, systemic embolization; TREATMENT for venous thrombosis and/or pulmonary embolus.HIGH RISK: Target INR is 2.5-3.5 for patients with mechanical heart valves.POCT-GLUCOSE [id number] 14:53:41 Test Item Value Reference Range Interpretation Comments POC-GLUCOSE METER 183 mg/dL 70-110 H : TESTED A T [facility] 6720 (BEAKER) (test code = [facility] [place], 1538) 19888: Shaper Set Up Operator/Techni olesya ID = [id number] for Wendy Urena BASIC METABOLIC PANEL (NA, K, CL, CO2, GLUCOSE, BUN, CREATININE, CA)2022-10-28 16:23:16 Test Item Value Reference Range Interpretation Comments NA (test code = 136 mmol/L 135-145 6198084813) K (test code = 4.0 mmol/L 3.5-5.0 9350404962) CL (test code = 101 mmol/L 98-108 0021318874) CO2 TOTAL (test code = 23 mmol/L 23-31 6414756954) AGAP (test code = 12 2-16 7394058976) BUN (test code = 9 mg/dL 7-23 7681954473) GLUCOSE (test code = 286 mg/dL 70-110 H 0027934372) CREATININE (test code = 0.68 mg/dL 0.60-1.25 3999833291) CALCIUM (test code = 8.3 mg/dL 8.6-10.6 L 3232886404) eGFR (test code = 122.5 mL/min/1.73m2 5367532988) SHAWN (test code = SHAWN) Association of Glomerular Filtration Rate (GFR) and Staging of Kidney Disease* + --+ --+ ------+| GFR (mL/min/1.73 m2) ?| With Kidney Damage ?| ?Without Kidney Damage+ --------+ --------+ +| ?>90 ?| ?Stage one ?| ? Normal ?+ ---+ ---+ -------+| ?60-89 ?| ?Stage two ?| ? Decreased GFR ? + --+ --+ ------+| ?30-59 ?| ?Stage three ?| ? Stage three ? + --+ --+ ------+| ?15-29 ?| ?Stage four ? | ? Stage four ?+ ---+ ---+ -------+| ?<15 (or dialysis) ? ?| ?Stage five ? | ? Stage five ?+ ---+ ---+ -------+ *Each stage assumes the associated GFR [...] tests). Lab Interpretation Abnormal (test code = 71202-4) [facility] WITH [id number] 16:10:58 Test Item Value Reference Range Interpretation Comments WBC (test code = 13.03 See_Comment H [Automated 6690-2) message] The sy stem which generated this result transmitted reference range : 4.20 - 10.70 10*3/?L. The reference range was not used to interpret this result as normal/abnormal . RBC (test code = 4.94 See_Comment [Automated 789-8) message] The sy stem which generated this [...] RDW-SD (test code = 42.8 fL 38.5-51.6 37446-1) RDW-CV (test code = 13.2 % 12.1-15.4 788-0) PLT (test code = 156 See_Comment [Automated 777-3) message] The sy stem which generated this result transmitted reference range : 150 - 328 10*3/ ?L. The reference r bhavna was not used to interpret this result as normal/abnormal . MPV (test code = 13.0 fL 9.8-13.0 11404-8) NRBC/100 WBC (test 0.0 See_Comment [Automat ed code = 5900343371) message] The system which generated this result transmitted reference range : 0.0 - 10.0 /100 WBCs. The refer ence range was not u sed to interpret th is result as normal/abnormal . NRBC x10^3 (test code See_Comment [Auto mated = 4414459164) message] The s ystem which generated this result transmitted reference range : 10*3/?L. The reference range was not used to interpret this result as normal/abnormal . GRAN MAT (NEUT) % 72.3 % (test code = 770-8) IMM GRAN % (test code 2.00 % = 4142777248) LYMPH % (test code = 15.0 % 736-9) MONO % (test code = 9.1 % 5905-5) EOS % (test code = 1.1 % 713-8) BASO % (test code = 0.5 % 706-2) GRAN MAT x10^3(ANC) 9.42 10*3/uL 1.99-6.95 H (test code = 0904819926) IMM GRAN x10^3 (test 0.26 10*3/uL 0.00-0.06 H code = 3465267893) LYMPH x10^3 (test code 1.96 10*3/uL 1.09-3.23 = 731-0) MONO x10^3 (test code 1.19 10*3/uL 0.36-1.02 H = 742-7) EOS x10^3 (test code = 0.14 10*3/uL 0.06-0.53 711-2) BASO x10^3 (test code 0.06 10*3/uL 0.01-0.09 = 704-7) Lab Interpretation Abnormal (test code = 20461-7) [facility] Test Item Value Reference Range Interpretation Comments GLUBED (test code = GLUBED) 155 mg/dL 70-110 H BASIC METABOLIC [id number] 06:26:00 Test Item Value Reference Range Interpretation [...] CA) 8.0 mg/dl 8.0-10.5 N CBC W/AUTO [id number] 06:04:00 Test Item Value Reference Range Interpretation [...] code = BA#) 0.1 K/mm3 0.0-0.2 N [id number] 05:50:00 Test Item Value Reference Range Interpretation Comments GLUBED (test code = GLUBED) 163 mg/dL 70-110 H [id number] 00:32:00 Test Item Value Reference Range Interpretation Comments GLUBED (test code = GLUBED) 216 mg/dL 70-110 H [id number] 05:57:00 Test Item Value Reference Range Interpretation Comments GLUBED (test code = GLUBED) 147 mg/dL 70-110 H [id number] 00:14:00 Test Item Value Reference Range Interpretation Comments GLUBED (test code = GLUBED) 169 mg/dL 70-110 H [id number] 16:32:00 Test Item Value Reference Range Interpretation Comments GLUBED (test code = GLUBED) 132 mg/dL 70-110 H [id number] 11:51:00 Test Item Value Reference Range Interpretation Comments GLUBED (test code = GLUBED) 170 mg/dL 70-110 H CARDIAC ENZYMES [id number] 08:23:00 Test Item Value Reference Range Interpretation Comments CREATINE KINASE (CK) 28 Units/L 39-308 L (test code = CK) TROPONIN-I (test code <0.02 NG/ML 0.00-0.06 N REFERE NCE RANGE = TROPI) TROPONIN I HEAL THY INDIVIDUALS: <0 .06 ng/mL R/O ISCHE AKHIL: 0.07 - 0.60 ng/ mL CUT-OFF RANGE F OR AMI: 0.60 - 1.5 ng/mL - XR CHEST 1 [id number] 06:38:00 FAX: Sky Valente MD [phone] [place]: St: ADM FAX: Chilango Dobbs [phone] ------ Name: SUDHEER JUAREZ [facility] : 1970 Age/S: 47/M [address] [facility]: [id number] Loc: E.438 [place], [place] Phys: Chilango Vigil [address] Acct: [id number] Dis Date: Status: ADM IN PHONE #:[phone] Exam Date: 08/12/2018 06 FAX #: [phone] Reason: CHEST PAIN EXAMS: CPT CODE: [id number] XR CHEST 1 V 13220 Location: U19. CHEST, FRONTAL VIEW HISTORY: CHEST PAIN COMPARISON: Chest x-ray 05/17/18. FINDINGS: The lungs are clear without consolidation. No pleural effusion or pneumothorax. The heart size is normal. The bones are unremarkable. IMPRESSION: No evidence of acute cardiopulmonary disease. at 0638 Reported and signed by: Augusta Remy M.D. CC: Sky Bartholomew MD; [place] BE Technologist: KAREN CEE [facility] Date/Time/By: 08/12/2018 (0638) : By: [email or web address] PAGE 1 Signed Report FAX: Sky Valente MD [phone] [place]: St: [facility] FAX: Chilango Dobbs [phone] Name: SUDHEER JUAREZ [facility] [place] : 1970 Age/S: 47/M [address] [place] [facility] Unit #: [id number] Loc: E.[address] [place], [place] Phys: [place] Vigil [address] Acct: [id number] Dis Date: Status: ADM IN PHONE #: [phone] Exam Date: 08/12/2018 06 FAX #: [phone] Reason: CHEST PAIN EXAMS: CPT CODE: [id number] XR CHEST 1 V 14835 (Continued) Orig Print D/T: S: 08/12/2018 (0641) PAGE 2 Signed [id number] 05:48:00 Test Item Value Reference Range Interpretation Comments GLUBED (test code = GLUBED) 155 mg/dL 70-110 H [id number] 04:15:00 Test Item Value Reference Range Interpretation Comments GLUBED (test code = GLUBED) 195 mg/dL 70-110 H [id number] 16:15:00 Test Item Value Reference Range Interpretation Comments GLUBED (test code = GLUBED) 210 mg/dL 70-110 H URINALYSIS [id number] 13:21:00 Test Item Value Reference Range Interpretation [...] = MUCU) TRACE DRUGS OF ABUSE SCREEN [id number] 13:20:00 Test Item Value Reference Interpretation Comments [...] = [place]) concentrati on: 300 ng/mL URINALYSIS [id number] 13:17:00 Test Item Value Reference Range Interpretation [...] UA BACTERIA (test code = NONE BACU) [id number] 11:54:00 Test Item Value Reference Range Interpretation Comments HGBA1C% (test code = HGBA1C%) 5.7 %A1C 4.8-6.0 N ESTIMATED AVERAGE GLUCOSE (test 117 MG/DL code = EAG) [id number] 11:19:00 Test Item Value Reference Range Interpretation Comments GLUBED (test code = GLUBED) 225 mg/dL 70-110 H COMPREHENSIVE METABOLIC [id number] 07:52:00 Test Item Value Reference Range Interpretation [...] 50.0-136.0 N code = ALKP) Comments to Creative Manager: Patient is currently in the ED waiting [...] LDL) 128 mg/dl 70-130 N Comments to Creative Manager: Patient is currently in the ED waiting on a bed [id number] 07:52:00 Test Item Value Reference Range Interpretation Comments MAGNESIUM (test code = MAG) 1.9 mg/dl 1.8-2.4 N Comments to Creative Manager: Patient is currently in the ED waiting on a bedCBC W/AUTO [id number] 07:31:00 Test Item Value Reference Range Interpretation [...] BA#) 0.0 K/mm3 0.0-0.2 N Comments to Creative Manager: Patient is currently in the ED waiting on a bedGLUBED 2018-08-11 05:55:00 Test Item Value Reference Range Interpretation Comments GLUBED (test code = GLUBED) 215 mg/dL 70-110 H [id number] 00:35:00 Test Item Value Reference Range Interpretation Comments GLUBED (test code = GLUBED) 260 mg/dL 70-110 H COMPREHENSIVE METABOLIC [id number] 18:48:00 Test Item Value Reference Range Interpretation [...] 50.0-136.0 N code = ALKP) COMPREHENSIVE METABOLIC [id number] 18:41:00 Test Item Value Reference Range Interpretation [...] (test Units/L 50.0-136.0 code = ALKP) PROTHROMBIN [id number] 18:36:00 Test Item Value Reference Range Interpretation Comments PROTHROMBIN TIME 12.6 SECONDS 9.9-12.8 N PATIENT (test code = PTP) INTERNATIONAL NORMAL 1.1 0.89-1.14 N THE INR IS TO BE USED RATIO (test code = ONLY FOR MONITORING INR) ORAL ANTICOAGULANTTH ERAPY. THE FOLLOWING A RE SUGGESTED RANGE S FROM [facility] COL LEGE OF CHEST PHYSICIANS:REJI CATION INR VALUEPROPHY LAXIS OF VENOUS THROM BOSIS (ORTHOPEDIC RENNY TA) 2.0 - 3.0PROPHY LAXIS OF VENOUS THROM BOSIS (OTHER THAN HIG H-RISK SURGERY) 2.0 - 3.0TREATMENT OF DEEP VEIN THROMBOSIS OR PULMONARY EMBOL ISM 2.0 - 3.0PREVENTION OF SYSTEMIC EMBOLI SM TISSUE HEART VA LVES 2.0 - 3.0 ACUTE MYOCARDIAL INFA RCTION (TO PREVENT SYS TEMIC EMBOLISM) 2.0 - 3.0 ACUTE MYOCARDIA L INFARCTION (TO PREVENT RECURRENT INFAR CT) 2.5 - 3.0 VALVULAR HEART DISEASE 2.0 - 3 .0 ATRIAL FIBRILAT ION 2.0 - 3.0BILEAFLET MECHANICAL VALV E IN AORTIC POSITION 2.0 - 3.0MECHANICAL PROSTHETIC VALV ES (HIGH RISK) 2.5 - 3.5PRESENCE OF LUPUS ANTICOAGULANT O R ANTIPHOSPHOLIPI D ANTIBODIES 2.5 - 3.5 CBC W/AUTO [id number] 18:31:00 Test Item Value Reference Range Interpretation [...] K/mm3 0.0-0.2 N - CT L-SPINE W/O [id number] 18:03:00 FAX: Sagar Troncoso MD [phone] [place]: St: REG Name: SUDHEER JUAREZ [facility] : 1970 Age/S: 47/M [address] [facility] Unit: [id number] Loc: [place], [place] Phys: Sagar Peters [facility] [address] Acct: [id number] Dis Date: Status: REG ER PHONE #: [phone] Exam Date: 08/10/2018 1754 FAX #: [phone] Reason: acute injury, Hx L3-4 fusion EXAMS: CPT CODE: [id number] CT L-SPINE W/O CONTRAST 86619 EXAM: CT LUMBAR SPINE WITHOUT CONTRAST INDICATION: Back injury COMPARISON: February TECHNIQUE: Axial CT imaging of the lumbar spine was obtained without administration of intravenous contrast. Sagittal and coronal reconstructions were submitted for review. IV contrast: None DLP:887.87 mGy-cm FINDINGS: There are 5 nonrib-bearing lumbar vertebra. There are postsurgical changes at L3-L4 with osseous fusion of the vertebral bodies and posterior elements. There are neurostimulatorleads within the lower lumbar and lower thoracic spine. The vertebral bodies are normal in height, al ignment and density. The facet joints and spinous [...] changes. No spinal canal or neuroforaminal stenosis. L4-5:No spinal canal stenosis. Facet joint hypertrophy with moderate neuroforaminal stenosis bilaterally. L5-S1: No spinal canal stenosis. Facet joint hypertrophy with moderate neuroforaminal stenosis bilaterally. IMPRESSION: No acute fracture is identified. Erosive changes at the facet joints at L4-L5 bilaterally which has progressed since the prior examination may be secondary to synovitis. PAGE 1 Signed Report (CONTINUED) FAX: Sagar Troncoso MD [phone] [place]: St: REG Name: SUDHEER JUAREZ [facility] : 1970 Age/S: 47/M [address] [facility] Unit: [id number] Loc: [place], [place] Phys: [place] [address] Acct: [id number] Dis Date: Status: REG ER PHONE #: [phone] Exam Date: 08/10/2018 1754 FAX #: [phone] Reason: acute injury, Hx L3-4 fusion EXAMS: CPT CODE: [id number] CT L-SPINE W/O CONTRAST 76183 (Continued) Diffuse discogenic disease and facet joint arthropathy throughout the lumbar spine. Postsurgical changes at L3-L4. Moderate neuroforaminal stenosis at L4-L5 and L5-S1 bilaterally. LOCATION: B2 This CT exam was performed according to our departmental doseoptimization program, which includes automated exposure control, adjustment of the mA and or kV according to patient size and/or use of iterative reconstruction technique. at 1803 Reported and signed by: Leslee Lobo M.D. CC: Sagar Peters MD Technologist: MEHUL AWAN Trnscrd Dt/Tm: 08/10/2018 (1802) 16 Orig Print D/T: S: 08/10/2018 (180 PAGE 2 Signed Report- CT HEAD/BRAIN W/O [id number] 17:56:00 FAX: Sagar Troncoso MD [phone] [place]: St: REG Name: SUDHEER JUAREZ [facility] : 1970 Age/S: 47/M [address] [facility] Unit: [id number] Loc: [place], [place] Phys: Sagar Peters [facility] [address] Acct: [id number] Dis Date: Status: REG ER PHONE #: [phone] Exam Date: 08/10/2018 175 FAX #: [phone] Reason: acute injury, +LOC EXAMS: CPT CODE: [id number] CT HEAD/BRAIN W/O CONT 92298 CT HEAD WITHOUT CONTRAST. HISTORY: acute injury, +LOC COMPARISON: CT head 01/06/18. TECHNIQUE: Axial CT images of the head were obtained with coronal and/or sagittal reformatted views. Automated exposure control, iterative reconstruction technique, and/or adjustment of mA and/or kV according to patient's size was utilized for radiation dose reduction. IV CONTRAST: None. Location: U19. FINDINGS: Nointracranial abnormalities such as hemorrhage, mass, mass effect, hydrocephalus, midline shift, extra-axial fluid collection or secondary signs of an acute infarct are noted. The calvarium and skull base are intact. The visualized paranasal sinus and mastoid air cells are clear. IMPRESSION: No evidence of acute intracranial abnormality. at 2899 Reported and signed by: Augusta Remy M.D. CC: Sagar Peters MD Technologist: MEHUL AWAN Trnscrd Dt/Tm: 08/10/2018 (9326) [email or web address] Orig Print D/T: S: 08/10/2018 (7005 PAGE 1 Signed Report- XR T-SPINE 3 VIEWS 2018-08-10 17:33:00 FAX: Sagar Troncoso MD [phone] [place]: St: REG Name: SUDHEER JUAREZ [facility] : 1970 Age/S: 47/M [address] [facility] [employer] Unit #: [id number] Loc: [place], [place]: [place] [address] Acct: [id number] Dis Date: Status: REG ER PHONE #: [phone] Exam Date: 08/10/2018 1729 FAX #: [phone] Reason: acute injury EXAMS: CPT CODE: [id number] XR T-SPINE 3 VIEWS 99540 Site ID: [id number] HISTORY: Acute injury, back pain IMPRESSION: Normal thoracic kyphosis, no acute fracture or subluxation. No significant spondylosis. Visualized ribs are intact. Spinal epidural leads terminate at the T8-T9 level. at 0394 Reported and signed by: Memo Matos M.D. CC: Sagar Peters MD Technologist: HAI ELKINS Trnscrd Date/Time/By: 08/10/2018 (0000) : By: [email or web address] PAGE 1 Signed Report FAX: Sagar Troncoso MD [phone] [place]: St: REG -- Name: SUDHEER JUAREZ [facility] : 1970 Age/S: 47/M [address] Unit #: [id number] Loc: [place], [place] Phys: [place] [address] Acct: [id number] Dis Date: Status: REG ER PHONE #: [phone] Exam Date: 08/10/2018 1729 FAX #: [phone] Reason: acute injury EXAMS: CPT CODE: [id number] XR T-SPINE 3 VIEWS 58002 (Continued) Orig Print D/T: S: 08/10/2018(1736) PAGE 2 Signed Report[U] XRAY SPINE LUMBOSACRAL MIN 4 VWS [id number] 13:57:00 Test Item Value Reference Range Interpretation Comments XR SPINE LUMBOSACRAL EXAM: XR SPINE MIN 4 VWS (test code = LUMBOSACRAL MIN 4 VWS 73980-4) DATE: 05/30/2017 at 1400 hours. INDICATION: Lower back pain. COMPARISON: None available. TECHNIQUE: AP, lateral, coned lateral, LPO and RPO radiographs of the lumbar spine. FINDINGS:5 nonrib bearing, lumbar-type vertebral bodies are present.A presumed spinal cord stimulator battery pack project over the left hip. Its distal leads are excluded from the hqwal-hc-wlvx.Moderate facet arthropathy is present throughout the mid to lower lumbar spine.There appears to be an intervening disc spacer at the L3-L4 level. IMPRESSION:1. No acute, radiographic abnormality of the lower lumbar spine.2. Advanced facet arthropathy throughout the mid to lower lumbar spine.3. Probable intervening disc spacer at the L3-L4 level. 05/30/2017 2:32 PM MEDIA MARKETING COORDINATOR Lamont Hector [place] Physicians Notes Date/Time Note Provider Source 2022-12-11 Formatting of this note is different from the or iginal. [facility] 12:39:03-00:00 Images from the original note were not included. My Note Addendum 12:34 PM Addend Delete Copy Nauseous yesterday, vomited once today just bile, migraine 9/10 pain, feels weak and diaphoretic. Denies chest pain, palpitations, numbness or tin gling of extremities. Advised patient to have some one drive him to the ED given his hx or call 911. Patient verbalized understanding and agreed with the plan. He will have his drive him. Jacqui Gómez LVN 12/11/2022 12:37 PM Magdalena Hernandez Signed 12:13 PM Copy Pt called and stated that he has a migraine and is vomiting. Pt needs guidance of what he should do. Please advise 2022-12-11 [facility] 12:34:55-00:00 Nauseous yesterday, vomited once today just bile, migraine 9/10 pain, feels weak and diaphoretic. Denies chest pain, palpitations, numbness or tin gling of extremities. Advised patient to have some one drive him to the ED given his hx or call 911. Patient verbalized understanding and agreed with the plan. He will have his drive him. Jacqui Gómez LVN 12/11/2022 12:37 PM 2022-12-11 Formatting of this note might be differe nt from the original. Magdalena Hernandez [facility] 12:13:41-00:00 Pt called and stated that he has a migraine and is vomiting. Pt needs guidance of what he should do. Please advise Electronically signed by Magdalena Hernandez at 0805/2022 12:15 PM CDT 2022-12-10 Formatting of this note might be differe nt from the original. Miya Valentin LVN [facility] 10:14:30-00:00 Spoke with Koby at [facility] and confirmed that Dr. Phillips is patient's PCP. No further information requested. Electronically signed by Miya Valentin LVN at 0 12/10/2022 10:15 AM CDT 2022-12-07 Formatting of this note might be differe nt from the original. Chely Sheikh [facility] 09:29:51-00:00 Mehnaz with [facility] Staff is needing to speak to nurse in regards to pt last office visit and if pt will follow home ana. Electronically signed by Chely Sheikh at 9:31 AM CDT 2022-12-05 Formatting of this note might be differe nt from the original. Miya Valentin LVN [facility] 17:47:11-00:00 Sudheer Juarez SHAHLA/Spouse-Viki walls contacted on 12/05/2022. She was notified orders have been placed and are pending insurance approval. Electronically signed by Miya Valentin LVN at 0 12/05/2022 5:50 PM CDT 2022-12-05 Formatting of this note might be differe nt from the original. Chely Sheikh [facility] 15:44:24-00:00 Spouse states pt was seen on 11/28/[address] PHILLIPS an stated pt had a stroke an requesting a order for hospital bed, bed toilet, ankle foot osteosis 90 degree and tub transfer bench. Contact spouse when processed. Electronically signed by Chely Sheikh at 3:48 PM CDT 2022-12-04 Formatting of this note is different fro m the original. Amina Mayorga MA [facility] 10:20:23-00:00 Images from the original note were not included. Last Refilled: 11/28/22 Notes: duplicate Recent Visits Date Type Provider Dept 11/28/22 Office Visit Jamila Phillips MD [facility] 02/02/22 Office Visit Blessing Yanes PA [facility] 10/25/21 Office Visit Blessing Yanes PA [facility] 09/20/21 Office Visit Blessing Yanes PA [facility] 07/21/21 Office Visit Blessing Yanes PA [facility] 07/14/21 Office Visit Blessing Yanes PA [facility] Showing recent visits within past 540 days with a meds authorizing provider and meeting all other requirements Future Appointments Date Type Provider Dept 12/12/22 Appointment Blessing Yanes PA [facility] Showing future appointments within next 150 days with a meds authorizing provider and meeting all other requirements pantoprazole 40 mg EC tablet Possible duplicate: Hover to review recent acti ons on this medication Sig: Take 1 tablet by mouth in the morning. Disp: 30 tablet Refills: 2 Start: 12/04/2022 Class: eRX Non-formulary For: Chronic GERD Last ordered: 6 days ago (11/28/2022) by Tree Phillips MD Gastroenterology: Antiulcer - Proton Pump Inhibitors Passed 12/04/2022 09:05 AM Protocol Details Valid encounter within last 12 months To be filled at: [id number] - [place], [place] - [address] AT [facility] [address] 2022-11-30 Formatting of this note is different from the or iginal. [facility] 15:30:15-00:00 Images from the original note were not included. Patient seen in office 11/28/22 Office Visit 11/28/2022 [facility], [place] MD -FAMILY MEDICINE Acute ischemic left MCA strok e +5 more Dx Hospital F/U Reason for Visit Progress Notes Jamila Phillips MD (STAFF) -FAMILY EDICINE Expand All Collapse All Family Medicine Clinic Visit Date: 11/28/2022 CC: Hospital F/U HPI: Sudheer Juarez is a 52 year ol d male presents for hospital follow-up. This is our first visit together, he has not been seen in our clinic for almost a year now. He went to outside hospital 711 with acute weakness and then was transferred to [facility] as he was found to have a subdural hematoma as well as acute left-sided ischemic stroke. Medications were changed, he was discharged on Plavix and rosuvastatin for stroke prevention. Aspirin and Eliquis were discontinued due to the subdural hematoma. He was recommended to follow-up with [facility] internal medicine, ace rology and also EP for impla ntable loop recorder to evaluate for arrhythmia. No appointments have been scheduled yet, he has a listed phone numbers to call. He lives with his and s on, in [place]. He has severe weakness to the right side since the stroke, he is unable to stand without support. He needs help with showering, with dressing, he has difficu lty getting in and out of be d. He does not have any DME equipment at home except for a wheelchair which is broken. Home health has not yet been set up since discharge. He fell yesterday in the shower and twisted the right knee 2022-11-26 [facility] 16:06:40-00:00 Attempted to contact patient . No answer. Left message to call back. Jacqui Gómez LVN 11/26/2022 4:06 PM 2022-11-26 Formatting of this note might be differe nt from the original. Berna Fuentes [facility] 10:15:59-00:00 Patient called asking to spe ak to nurse, he was hospitalized and they had put him on a new meds, he is scheduled fo Hospital fu on Saturday, he has questions regarding his medications. Please advise Electronically signed by Berna Fuentes at 11/26 10:18 AM [facility] 2018-09-18 [id number] [facility] [place] 10:38:00-00:00 [address] [place], [place] [address] PATIENT NAME: SUDHEER JUAREZ ADMIT DATE: ACCOUNT NO: [id number] DISCHARGE DATE: 9 ROOM NO: E[facility] REPORT TYPE: DISCHARGE SUMMARY DATE OF : AGE: 48 SEX: M ADMITTING PHYSICIAN:Sky Bartholomew MD ATTENDING PHYSICIAN:Sky Bartholomew MD ADMISSION DATE: 08/10/2018 DISCHARGE DATE: 08/14/2018 PRIMARY CARE PHYSICIAN: [facility]. REASON FOR ADMISSION: Severe back pain. CONSULTATIONS: 1. Dr. Avila, orthopedics. 2. Pain management, [facility]. HISTORY OF PRESENT ILLNESS AND HOSPITAL COURSE: A 47-year-old patient with known history of chronic back pain who follows w [facility] pain management and has fentanyl pain pump, also wit h history of L3-L4 spinal fusion, also with history of hypertension, diabetes, T IA, hyperlipidemia, lupus, anxiety, presented to the hospital with excruciating back pain. EMS was sc lled. He was brought into the hospital. He denies any incontinence or perineal sensory loss. The patient was diagnosed with odakt-yl-ayuugri intractable low back pain. Diabetes and hypertension [...] Lakeisha Flaherty MD PATIENT NAME: SUDHEER JUAREZ CAIL[place] ACCOUNT #: [id number] WT: DS:KELSEA/BHAVNA/NTS Conf#: [id number]/DID#: [id number] Authenticated by Lakeisha Flaherty MD On 09/22/2018 02:45:38 PM Electronically Signed by Lakeisha Flaherty MD on 0 09/22/18 at 1445 PATIENT NAME: SUDHEER JUAREZ ACCOUNT #: [id number] 2018-08-16 [facility] 23:31:00-00:00 [facility] ([facility]) EMERGENCY PROVIDER REPORT REPORT#:[id number] REPORT STATUS: Signed DATE:08/16/18 TIME: 2330 PATIENT: SUDHEER JUAREZ UNIT #: [id number] ROOM/BED: AGE: 47 SEX: M PCP PHYS: No Primary or Family Ph ysician SERVICE AUTHOR: Rin Simmons WATCH [employer]ER * ALL edits or amendments must be made on the [employer]/computer document * HPI-Back Pain 40 and Over General Confirmed Patient Yes Patient Type Existing patient Initial Greet Date/Time 08/16/182310 Assumed Care at Time 2310 Presentation Chief Complaint Pain, lumbar Hx Obtained [...] mellitus, Hypertension. Additional Medical History Lupus, No [place], Heart Grafts x2, anxiety Additional Surgical History NO Stents, Spinal Fusion, back surgery Family History: Reports: Hypertension. Alcohol Use Denies EtOH use Drug Use Denies recreational drugs Smoking status for patients 13 years old or olde r: Never Smoker Physical Exam Vital Signs Vital Signs First Documented: Result Date Time Pulse Ox 96 08/16 2305 B/P 164/100 08/16 2305 B/P Mean 121 08/16 230 O2 Delivery Room air 08/16 2305 Temp 36.9 08/16 230 Pulse 83 08/16 230 Resp 18 08/16 2305 Last Documented: Result Date Time Pulse Ox 97 04/ 0030 B/P 155/80 08/17 0030 B/P Mean 105 08/17 0030 Temp 36.7 / 0030 Pulse 80 04/ 0030 Resp 18 08/17 0030 O2 Delivery Room air 08/16 230 Review of Vital Signs Reviewed, Vital signs [...] 08/16 2305 Pulse 83 08/16 2305 Resp 08/16 Last Documented: Result Date Time Pulse Ox 97 08/17 29 B/P 155/80 08/17 29 B/P Mean 105 08/17 29 Temp 36.7 08/17 29 Pulse 80 04/07 0030 Resp 18 08/17 0030 O2 Delivery [...] symptoms should prompt an immediate return to [facility] or the closest emergency department or a call to 911. at 2117 RPT #:[id number] END OF REPORT 2018-08-16 [facility] 23:31:00-00:00 [facility] ([facility]) EMERGENCY PROVIDER REPORT REPORT#:[id number] REPORT STATUS: Signed DATE:08/16/18 TIME: 2330 PATIENT: SUDHEER JUAREZ UNIT #: [id number] ROOM/BED: AGE: 47 SEX: M PCP PHYS: No Primary or Family Ph ysician SERVICE AUTHOR: Rin Simmons NP * ALL edits or amendments must be made on the [employer]ement[employer]/computer document * Rin Simmons 08/16/18 2331: HPI-Back [...] mellitus, Hypertension. Additional Medical History Lupus, No [place], Heart Grafts x2, anxiety Additional Surgical History NO Stents, Spinal Fusion, back surgery Family History: Reports: Hypertension. Alcohol Use Denies EtOH use Drug Use Denies recreational drugs Smoking status for patients 13 years old or olde r: Never Smoker Physical Exam Vital Signs Vital Signs First Documented: Result Date Time Pulse Ox 96 08/16 2306 B/P 164/100 08/16 2306 B/P Mean 121 08/16 2305 O2 Delivery Room air 08/16 2305 Temp 36.9 08/16 230 Pulse 83 08/16 2306 Resp 18 08/16 230 Last Documented: Result Date Time Pulse Ox 97 04 0030 B/P 155/80 / 0030 B/P Mean 105 / 0030 Temp 36.7 / 0030 Pulse 80 04/ 0030 Resp 18 / 0030 O2 Delivery Room air 08/16 2306 Review [...] 08/16 2344 DC 0 08/16 IV 08/16 2345 2346 Hydromorphone HCl 1 MG ONCE ONE 08/16 2330 DC SC 08/16 2330 Patient Discharge Departure Vital Signs/Condition Vital Signs First Documented: Result Date Time Pulse Ox 96 08/16 2305 B/P 164/100 08/16 2305 B/P Mean 121 08/16 2306 O2 Delivery Room air 08/16 2305 Temp 36.9 08/16 2305 Pulse 83 08/16 2305 Resp 18 08/16 2305 Last Documented: Result Date Time Pulse Ox 97 08/17 0030 B/P 155/80 08/17 0030 B/P Mean 105 08/17 0030 Temp 36.7 08/17 0030 Pulse 80 / 0030 Resp 18 08/17 0030 O2 Delivery [...] symptoms should prompt an immediate return to [facility] or the closest emergency department or a call to 911. Vani Madden 08/17/182116: HPI-Back Pain 40 and Over General Initial Greet Date/Time 08/16/18 2311 Physical Exam Vital Signs Vital Signs Re-Evaluation MDM ED Course Medication(s) Ordered Patient Discharge Departure Vital Signs/Condition Vital Signs Supervising Physician Note MidLv Saw Pt Alone I have reviewed the PA/WATCH CRYSTAL EDGE GRINDER's note and plan of car e. I was available for consultation as needed at al l times during the patient's visit in the emergency department. I agree with the clinical impression , plan and disposition. at 2117 Electronically Signed by Vani Madden MD on at 2118 RPT #:[id number] END OF REPORT 2018-08-15 [facility] 12:22:00-00:00 [facility] ([facility]) EMERGENCY PROVIDER REPORT REPORT#:[id number] REPORT STATUS: Signed DATE:08/15/18 TIME: 1222 PATIENT: SUDHEER JUAREZ UNIT #: [id number] ROOM/BED: AGE: 47 SEX: M PCP PHYS: No Primary or Family Ph ysician SERVICE AUTHOR: Bishop Choudhury * ALL edits or amendments must be made on the [employer] document * HPI-Back Pain 40 and Over [...] not want to be admitted to the [facility]." Review of Systems ROS Statements All systems [...] he cannont take ativan because it "has the opposite effect", wires him up more aspirin [...] mellitus, Hypertension. Additional Medical History Lupus, No [place], Heart Grafts x2, anxiety Additional Surgical History NO Stents, Spinal Fusion, back surgery Family History: Reports: Hypertension. Alcohol Use Denies EtOH use Drug Use Denies recreational drugs Smoking status for patients 13 years old or olde r: Never Smoker Physical Exam Vital Signs Vital Signs First Documented: Result Date Time Pulse Ox 98 04 1206 B/P 177/89 04 1206 B/P Mean 118 08/15 1206 O2 Delivery Room air 08/15 1206 Temp 36.8 08/15 1206 Pulse 81 08/15 1206 Resp 18 08/15 1206 Last Documented: Result Date Time Pulse Ox 98 08/15 120 B/P 177/89 08/15 1206 B/P Mean 118 08/15 1206 O2 Delivery Room air 08/15 1205 Temp 36.8 08/15 120 Pulse 81 08/15 120 Resp 18 08/15 1206 Review of Vital Signs Reviewed Focused [...] Status Admin Methocarbamol 750 MG X1ED STA 04 1222 DC 04/ 05 PO 04/ 1223 1229 Central Nervous System Agents Sig/Mahsa Start time Last Medication Dose Route Stop Time Status Admin Hydromorphone HCl 2 MG X1ED STA 04 1221 DC 0 4/05 PO 04/ 1222 1230 Hormones And Synthetic Substit Sig/Mahsa Start time Last Medication Dose Route Stop Time Status Admin Prednisone 50 MG X1ED STA 08/15 1222 DC 04/05 PO 04/ 1223 1229 Patient Discharge Departure Vital Signs/Condition [...] 81 04/05 1206 Resp 18 04/05 1206 All vital signs available at the [...] Signed by Bishop Choudhury on at 1635 [facility] #:[id number] END OF REPORT 2018-08-15 [facility] 12:22:00-00:00 [facility] ([facility]) EMERGENCY PROVIDER REPORT REPORT#:[id number] REPORT STATUS: Signed DATE:08/15/18 TIME: 1222 PATIENT: SUDHEER JUAREZ UNIT #: [id number] ROOM/BED: AGE: 47 SEX: M PCP PHYS: No Primary or Family Ph ysician SERVICE AUTHOR: Bishop Choudhury PA * ALL edits or amendments must be made on the Memento/computer document * Bishop Choudhury 08/15/18 1222: HPI-Back [...] not want to be admitted to the [facility]." Review of Systems ROS Statements All systems [...] mellitus, Hypertension. Additional Medical History Lupus, No [place], Heart Grafts x2, anxiety Additional Surgical History NO Stents, Spinal Fusion, back surgery Family History: Reports: Hypertension. Alcohol Use Denies EtOH use Drug Use Denies recreational drugs Smoking status for patients 13 years old or olde r: Never Smoker Physical Exam Vital Signs Vital Signs First Documented: Result Date Time Pulse Ox 98 08/15 1206 B/P 177/89 08/15 1206 B/P Mean 118 08/15 120 O2 Delivery Room air 08/15 1205 Temp 36.8 08/15 120 Pulse 81 08/15 1206 Resp 18 08/15 1205 Last Documented: Result Date Time Pulse Ox 98 08/15 120 B/P 177/89 08/15 1205 B/P Mean 118 08/15 1206 O2 Delivery Room air 08/15 1205 Temp 36.8 08/15 120 Pulse 81 08/15 1206 Resp 18 08/15 120 Review of Vital Signs Reviewed Focused PE [...] Status Admin Methocarbamol 750 MG X1ED STA 04 1222 DC 04/ 05 PO 04/05 1223 1229 Central Nervous System Agents Sig/Mahsa Start time Last Medication Dose Route Stop Time Status Admin Hydromorphone HCl 2 MG X1ED STA 04/ 1221 DC 0 4/05 PO 04/05 1222 1230 Hormones And Synthetic Substit Sig/Mahsa Start time Last Medication Dose Route Stop Time Status Admin Prednisone 50 MG X1ED STA 04/ 1222 DC 04/05 PO 04/05 1223 1229 Patient Discharge Departure Vital Signs/Condition [...] 81 04/05 1206 Resp 18 04/05 1206 All vital signs available at the time of this en try have been reviewed. Condition Stable Clinical Impression Clinical Impression Primary Impression: Acute exacerbation of chroni c low back pain Disposition Decision Discharge )( Discharged to Home Yes )( Time 1224 )( Date 08/15/18 Discharge/Care Plan Counseled Regarding Diagnosi s, Prescriptions, Need for follow-up, When to return to ED Prescriptions prednisone robaxin Koussayer,Tarek 08/16/18 0758: HPI-Back Pain 40 and Over [...] Saw Pt Alone I have reviewed the PA/WATCH CRYSTAL EDGE GRINDER's note and plan of car e. I was available for consultation as needed at al l times during the patient's visit in the emergency department. I agree with the clinical impression , plan and disposition. Electronically Signed by Bishop Choudhury on at 1635 Electronically Signed by Payton Snowden MD on 0 08/16/18 at 0759 RPT #:[id number] END OF REPORT 2018-08-14 [facility] 11:17:00-00:00 [facility] ([facility]) Orthopaedic Progress Note REPORT#:[id number] REPORT STATUS: Signed DATE:08/14/18 TIME: 1117 PATIENT: SUDHEER JUAREZ UNIT #: [id number] ROOM/BED: [place] [address] : 70 AGE: 47 SEX: M ATTEND: Shahid Bartholomew MD ADM AUTHOR: Jose Elias Avila MD * ALL edits or amendments must be made on the Memento/computer document * Subjective Chief complaint: low back [...] (Auto) (23.0 - 38.0 %) 18.0 L [place] % (Auto) (1.0 - 10.0 %) 6.7 Eos % (Auto) (1.0 - 5.0 %) 0.1 L Baso % (Auto) (0.0 - 1.0 %) 0.3 Neut # (Auto) (2.4 - 6.3 K/mm3) 11.9 H Lymph # (Auto) (1.2 - 4.0 K/mm3) 2.9 [place] # (Auto) (0.0 - 0.6 K/mm3) 1.1 [...] Elias Avila MD on at 1119 RPT #:[id number] END OF REPORT 2018-08-13 [facility] 14:29:00-00:00 [facility] ([facility]) Hospitalist Progress Note REPORT#:[id number] REPORT STATUS: Signed DATE:08/13/18 TIME: 1428 PATIENT: SUDHEER JUAREZ UNIT #: [id number] ROOM/BED: [place] [address] : 70 AGE: 47 SEX: M ATTEND: Shahid Bartholomew MD ADM AUTHOR: Lakeisha Flaherty MD * ALL edits or amendments must be made on the [employer] document * Subjective Chief Complaint: still with [...] muscle spasm, muscle tenderness , paraspinal tenderness Neuro/HYDROGRAPHIC ENGINEER: alert, oriented X 3 Skin: dry, intact Results Findings/Data: Laboratory Tests 08/12 08/13 08/13 1620 0002 0548 Chemistry POC Glucose (70 - 110 mg/dL) 132 H 169 H 147 H Diagnosis, Assessment Plan Free Text DxA P Notes Free text DxA P notes: 1. Ggsqh-eo-oxclzmq intractable low back pain. CT L-spine is negative for acute fracture. consulted PT, slow to improv e---cannot take few steps, cannot sit for more than few seconds seen by Dr. Avila consult pain management patient reports pain not well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
--- NOTE | 2022-12-11 13:51 | RAD REPORT ---
EXAM DESCRIPTION: CT - Ct Stroke Brain Wo Cont - 12/11/2022 1:42 pm CLINICAL HISTORY: Right-sided weakness COMPARISON: November 21, 2022 TECHNIQUE: Computed axial tomography of the head was obtained. All CT scans are performed using dose optimization technique as appropriate and may include automated exposure control or mA/KV adjustment according to patient size. FINDINGS: An intracranial bleed is not seen . The ventricles are normal in caliber. Small left cerebral subdural hematoma has resolved since prior exam No significant hypodensity within the brain is noted Fluid within the sinuses/ mastoids is not seen. Mild chronic sinusitis IMPRESSION: No acute intracranial abnormality is seen. If patient's symptoms persist MRI of the bra in would be recommended Dr Llanes of the emergency room was notified at 1:47 p.m. on December 11, 2022
[2022-12-11 14:12] LABS: Absolute Lymphocytes (CBC) 2.2 K/uL (0.7-4.9); Hematocrit 42.3 % (39.6-49.0); Lymphocytes % 21.1 % (15.3-44.8); MCV 88.8 fL (80-100); MPV 11.4 fL (7.6-11.3); RBC Red Blood Cell Count 4.76 M/uL (4.33-5.43)
[2022-12-11 14:27] LABS: Protime INR 1.15
[2022-12-11 14:30] LABS: Albumin 3.2 g/dL (3.4-5.0); Bilirubin Direct 0.2 mg/dL (0-0.2); Bilirubin Indirect, Calculated 0.4 mg/dL (0.2-0.8); Bilirubin Total 0.6 mg/dL (0.2-1.0); Magnesium 1.9 mg/dL (1.6-2.4); Potassium 3.4 mEq/L (3.5-5.1); Protein, Total 7.8 g/dL (6.4-8.2); Troponin High Sensitivity 4.9 pg/mL (<58.9)
[2022-12-11] MEDS ORDERED: METOCLOPRAMIDE 10 MG/2mL INJ ONE (14:57)
[2022-12-11] MEDS ORDERED: MORPHINE 2 MG/ML SYR ONE (14:58)
[2022-12-11] MEDS ORDERED: MAGNESIUM SULFATE 1 gm IVPB 1 GM/100 ML BAG IV ONE (14:58)
[2022-12-11] MEDS ORDERED: NA CHLORIDE 0.9% 500 ML ONE (14:58)
--- NOTE | 2022-12-11 16:33 | ER ---
Nurse's Notes [facility] Name: Matti Juarez Age: 52 yrs Sex: Male : 1970 Arrival Date: 12/11/2022 Time: 13:13 Bed 4 Private MD: Diagnosis: Headache Presentation: 12/11 13:24 Chief complaint: Patient states: headache to the back of his head X2 days. Pt states cm10 that the pain is getting worse and today he had 1 episode of vomiting. Pt states that on 11/21 he had a brain bleed and has right-sided deficits. No new weakness, no blurred vision. Pt reports taking tylenol with no relief. Coronavirus screen: Vaccine status: Patient reports receiving the 2nd dose of the covid vaccine. Ebola Screen: No symptoms or risks identified at this time. Initial Sepsis Screen: Does the patient meet any 2 criteria? No. Patient's initial sepsis screen is negative. Does the patient have a suspected source of infection? No. Patient's initial sepsis screen is negative. Risk Assessment: Do you want to hurt yourself or someone else? Patient reports no desire to harm self or others. Onset of symptoms was December 11, 2022. 13:24 Method Of Arrival: Wheelchair cm10 13:24 Acuity: JELENA 3 cm10 Historical: - Allergies: 13:26 Anesthesia; cm10 13:26 Aspirin; cm10 13:26 atorvastatin; cm10 13:26 Iodinated Contrast Media - IV Dye (cardiac arrest); cm10 13:26 Requip; cm10 13:26 ropinirole HCl; cm10 13:26 SHELLFISH; cm10 - PMHx: 13:26 cardiac arrest; Diabetes - NIDDM; heart catheterization; Hypertension; hemorrhagic cm10 stroke; 13:28 Right sided weakness; aa5 - PSHx: 13:26 Cholecystectomy; pain pump implant, RIGHT lower abd; spine stimulator, LEFT hip; spine cm10 fusion; - Immunization history:: Adult Immunizations. - Social history:: Smoking status: Patient denies any tobacco usage or history of. Screenin:30 Abuse screen: Denies threats or abuse. Nutritional screening: No deficits noted. aa5 Tuberculosis screening: No symptoms or risk factors identified. Assessment: 13:28 General: Appears comfortable, Behavior is calm, cooperative. Pain: Complains of pain in aa5 back of head Pain currently is 8 out of 10 on a pain scale. Quality of pain is described as pressure, Is continuous. 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 . Cardiovascular: Heart tones S1 S2 present Rhythm is regular. Respiratory: Airway is patent Respiratory effort is even, unlabored, Respiratory pattern is regular, symmetrical. 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 Patient currently denies nausea. : No signs and/or symptoms were reported regarding the genitourinary system. EENT: No signs and/or symptoms were reported regarding the EENT system. Derm: Skin is pink, warm \T\ dry. Musculoskeletal: right sided weakness. 15:00 Reassessment: Patient is alert, oriented x 3, equal unlabored respirations, skin aa5 warm/dry/pink. 15:45 Reassessment: Patient is alert, oriented x 3, equal unlabored respirations, skin aa5 warm/dry/pink. Patient states symptoms have not improved. 16:45 Reassessment: Patient is alert, oriented x 3, equal unlabored respirations, skin aa5 warm/dry/pink. Patient states feeling better. Pain: Pain currently is 3 out of 10 on a pain scale. Vital Signs: 13:24 BP 147 / 83; Pulse 68; Resp 18; Temp 97.3; Pulse Ox 98% ; Weight 106.59 kg; Height 5 cm10 ft. 6 in. ; Pain 8/10; 13:45 BP 145 / 84; Pulse 70; Resp 18 S; Pulse Ox 100% on R/A; aa5 14:27 BP 143 / 85; Pulse 71; Resp 16 S; Pulse Ox 99% on R/A; aa5 15:00 BP 146 / 89; Pulse 71; Resp 16 S; Pulse Ox 99% on R/A; aa5 15:45 BP 137 / 87; Pulse 73; Resp 16 S; Pulse Ox 99% on R/A; aa5 16:45 BP 139 / 87; Pulse 72; Resp 16 S; Pulse Ox 98% on R/A; Pain 3/10; aa5 13:24 Body Mass Index 37.93 (106.59 kg, 167.64 cm) cm10 13:24 Pain Scale: Adult cm10 16:45 Pain Scale: Adult aa5 Rayna Coma Score: 13:45 Eye Response: spontaneous(4). Motor Response: obeys commands(6). Verbal Response: sb4 oriented(5). Total: 15. ED Course: 13:17 Patient arrived in ED. am2 13:20 Gabrielle Angeles PA-C is PHCP. sb4 13:20 Jim Monson MD is Attending Physician. sb4 13:26 Triage completed. cm10 13:28 Arm band placed on Patient placed in an exam room, on a stretcher. cm10 13:28 Patient has correct armband on for positive identification. Bed in low position. Call aa5 light in reach. Side rails up X2. Adult w/ patient. Client placed on continuous cardiac and pulse oximetry monitoring. NIBP monitoring applied. 13:37 Latricia Carrillo, USMAN is Primary Nurse. aa5 13:44 CT Stroke Brain w/o Contrast In Process Unspecified. EDMS 14:05 Initial lab(s) drawn, by ED staff, sent to lab. aa5 14:05 Inserted saline lock: 22 gauge in left antecubital area, using aseptic technique. IV aa5 inserted by ZULEIMA Sandoval. 16:55 No provider procedures requiring assistance completed. IV discontinued, intact, aa5 bleeding controlled, No redness/swelling at site. Pressure dressing applied. Administered Medications: 15:00 Drug: morphine IVP or IV 2 mg Route: IVP; Infused Over: 4 mins; Site: left antecubital; aa5 15:15 Follow up: Response: No adverse reaction aa5 15:00 Drug: metoCLOPramide IVP 10 mg Route: IVP; Site: left antecubital; aa5 15:45 Follow up: Response: No adverse reaction aa5 15:00 Drug: NS 0.9% IV 500 ml Route: IV; Rate: bolus; Site: left antecubital; aa5 15:45 Follow up: IV Status: Completed infusion; IV Intake: 500ml aa5 15:45 Drug: Magnesium Sulfate IVPB 1 grams Route: IVPB; Infused Over: 1 hrs; Site: left aa5 antecubital; 16:45 Follow up: IV Status: Completed infusion aa5 Medication: 16:55 VIS not applicable for this client. aa5 Intake: 15:45 IV: 500ml; Total: 500ml. aa5 Outcome: 16:32 Discharge ordered by . sb4 16:55 Discharged to home via wheelchair, with significant other. aa5 16:55 Condition: improved 16:55 Discharge instructions given to patient, family, Instructed on discharge instructions, follow up and referral plans. Demonstrated understanding of instructions, follow-up care. 16:59 Patient left the ED. 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 Patient states feeling better. aa5 19:17 19:16 Pain: Pain currently is 3 out of 10 on a pain scale. aa5 aa5
--- NOTE | 2022-12-11 16:33 | EDPHYS ---
Physician Documentation [facility] Name: Matti Juarez Age: 52 yrs Sex: Male : 1970 Arrival Date: 12/11/2022 Time: 13:13 Bed 4 Private MD: ED Physician Jim Monson HPI: 12/11 13:45 This 52 yrs old Male presents to ER via Wheelchair with complaints of sb4 Headache, Nausea/Vomiting, muscle spasms. 13:45 The patient complains of pain to the occiput. Onset: The symptoms/episode sb4 began/occurred this morning. Associated signs and symptoms: Pertinent positives: vomiting, Pertinent negatives: altered mental status, dizziness, fever, neck stiffness, paresthesias, Photophobia vision changes, vision loss, weakness. Headache History: The patient has had previous headaches and this one is similar to previous episodes. The symptoms are alleviated by nothing. the symptoms are aggravated by nothing. The patient has experienced a previous episode, approximately 2 months ago. The patient has been recently seen by a physician: in the hospital. 52 year old male with recent history of 8 mm nontraumatic brain bleed secondary to eliquis with residual right sided deficits presents with complaints of an occipital headache. he states the pain began this morning while he was participating in physical therapy. he reports the pain caused him to vomit. he states the pain feels similar to when he had the bleed, but this time he does not have any new neurologic deficits. Historical: - Allergies: 13:26 Anesthesia; cm10 13:26 Aspirin; cm10 13:26 atorvastatin; cm10 13:26 Iodinated Contrast Media - IV Dye (cardiac arrest); cm10 13:26 Requip; cm10 13:26 ropinirole HCl; cm10 13:26 SHELLFISH; cm10 - PMHx: 13:26 cardiac arrest; Diabetes - NIDDM; heart catheterization; Hypertension; hemorrhagic cm10 stroke; 13:28 Right sided weakness; aa5 - PSHx: 13:26 Cholecystectomy; pain pump implant, RIGHT lower abd; spine stimulator, LEFT hip; spine cm10 fusion; - Immunization history:: Adult Immunizations. - Social history:: Smoking status: Patient denies any tobacco usage or history of. ROS: 13:45 Constitutional: Negative for fever, chills, and weight loss, Eyes: Negative for injury, sb4 pain, redness, and discharge, ENT: Negative for injury, pain, and discharge, Cardiovascular: Negative for chest pain, palpitations, and edema, Respiratory: Negative for shortness of breath, cough, wheezing, and pleuritic chest pain, Back: Negative for injury and pain, MS/Extremity: Negative for injury and deformity, Skin: Negative for injury, rash, and discoloration. 13:45 Abdomen/GI: Positive for nausea and vomiting. 13:45 Neuro: Positive for headache, weakness, Negative for altered mental status, dizziness, speech changes, syncope. 13:45 All other systems are negative. Exam: 13:45 Constitutional: This is a well developed, well nourished patient who is awake, alert, sb4 and in no acute distress. Head/Face: Normocephalic, atraumatic. Eyes: Extra-ocular motions intact. Periorbital areas with no swelling, redness, or edema. Cardiovascular: Regular rate and rhythm with a normal S1 and S2. Respiratory: Lungs have equal breath sounds bilaterally, clear to auscultation and percussion. No rales, rhonchi or wheezes noted. No increased work of breathing, no retractions or nasal flaring. Abdomen/GI: Soft, non-tender, no distension. Skin: Warm, dry with normal turgor. Normal color with no rashes, no lesions, and no evidence of cellulitis. MS/ Extremity: Pulses equal, no cyanosis. Neurovascular intact. Full, normal range of motion. 13:45 Neuro: Orientation: is normal, to person, place, time \T\ situation. Mentation: is normal, appropriate for stated age, no acute changes, able to follow commands, Memory: is normal, appropriate for stated age, no acute changes, Cranial nerves: no acute changes. Vital Signs: 13:24 BP 147 / 83; Pulse 68; Resp 18; Temp 97.3; Pulse Ox 98% ; Weight 106.59 kg; Height 5 cm10 ft. 6 in. ; Pain 8/10; 13:45 BP 145 / 84; Pulse 70; Resp 18 S; Pulse Ox 100% on R/A; aa5 14:27 BP 143 / 85; Pulse 71; Resp 16 S; Pulse Ox 99% on R/A; aa5 15:00 BP 146 / 89; Pulse 71; Resp 16 S; Pulse Ox 99% on R/A; aa5 15:45 BP 137 / 87; Pulse 73; Resp 16 S; Pulse Ox 99% on R/A; aa5 16:45 BP 139 / 87; Pulse 72; Resp 16 S; Pulse Ox 98% on R/A; Pain 3/10; aa5 13:24 Body Mass Index 37.93 (106.59 kg, 167.64 cm) cm10 13:24 Pain Scale: Adult cm10 16:45 Pain Scale: Adult aa5 Holland Coma Score: 13:45 Eye Response: spontaneous(4). Motor Response: obeys commands(6). Verbal Response: sb4 oriented(5). Total: 15. MDM: 13:20 Patient medically screened. sb4 13:45 Differential diagnosis: cluster headache, cerebral vascular accident, epidural sb4 hematoma, hypertensive headache, intracerebral hemorrhage, migraine, subarachnoid bleed, subdural hematoma, temporal arteritis, tension headache, traumatic injuries. 16:31 Data reviewed: vital signs, nurses notes, lab test result(s), EKG, radiologic studies, sb4 I have discussed the patient's presentation/case with the attending Emergency Department Physician; and as a result, I will discharge patient. Consideration of Admission/Observation Escalation of care including admission/observation considered. Historians other than the Patient: Spouse/Significant Other: . Care significantly affected by the following chronic conditions: Diabetes, Hypertension. Counseling: I had a detailed discussion with the patient and/or guardian regarding: the historical points, exam findings, and any diagnostic results supporting the discharge/admit diagnosis, the presence of at least one elevated blood pressure reading (>120/80) during this emergency department visit, lab results, radiology results, to return to the emergency department if symptoms worsen or persist or if there are any questions or concerns that arise at home. Medication response: morphine, reglan, magnesium- markedly improved. Special discussion: I discussed with the patient/guardian in detail that at this point there is no indication for admission to the hospital. It is understood, however, that if the symptoms persist or worsen the patient needs to return immediately for re-evaluation. 16:33 ED course: After discovering that patient's work-up was negative for any acute sb4 findings, I treated him with a migraine cocktail which relieved his symptoms. He feels okay to go home. I gave him strict return precautions and to follow-up with his neurologist tomorrow. I have given him a copy of all of his results. He and his verbalized understanding. 12/11 13:52 Order name: Basic Metabolic Panel; Complete Time: 14:31 sb4 12/11 13:52 Order name: CBC with Diff; Complete Time: 14:24 sb4 12/11 13:52 Order name: LFT's; Complete Time: 14:31 sb4 12/11 13:52 Order name: Magnesium; Complete Time: 14:31 sb4 12/11 13:52 Order name: NT PRO-BNP; Complete Time: 14:31 sb4 12/11 13:52 Order name: PT-INR; Complete Time: 14:29 sb4 12/11 13:52 Order name: Troponin HS; Complete Time: 14:31 sb4 12/11 13:37 Order name: CT Stroke Brain w/o Contrast; Complete Time: 13:56 aa5 12/11 13:52 Order name: EKG; Complete Time: 13:53 sb4 12/11 13:52 Order name: Cardiac monitoring; Complete Time: 14:05 sb4 12/11 13:52 Order name: EKG - Nurse/Tech; Complete Time: 14:05 sb4 12/11 13:52 Order name: IV Saline Lock; Complete Time: 14:05 sb4 12/11 13:52 Order name: Labs collected and sent; Complete Time: 14:05 sb4 12/11 13:52 Order name: O2 Per Protocol; Complete Time: 14:05 sb4 12/11 13:52 Order name: O2 Sat Monitoring; Complete Time: 14:05 sb4 EC:13 Rate is 72 beats/min. Rhythm is regular, Normal Sinus Rhythm. ND interval is normal at sb4 158 msec. QRS interval is normal at 90 msec. QT interval is normal at 370 msec. No Q waves. T waves are Normal. No ST changes noted. Clinical impression: Normal ECG. Interpreted by me. Reviewed by me. Administered Medications: 15:00 Drug: morphine IVP or IV 2 mg Route: IVP; Infused Over: 4 mins; Site: left antecubital; aa5 15:15 Follow up: Response: No adverse reaction aa5 15:00 Drug: metoCLOPramide IVP 10 mg Route: IVP; Site: left antecubital; aa5 15:45 Follow up: Response: No adverse reaction aa5 15:00 Drug: NS 0.9% IV 500 ml Route: IV; Rate: bolus; Site: left antecubital; aa5 15:45 Follow up: IV Status: Completed infusion; IV Intake: 500ml aa5 15:45 Drug: Magnesium Sulfate IVPB 1 grams Route: IVPB; Infused Over: 1 hrs; Site: left aa5 antecubital; 16:45 Follow up: IV Status: Completed infusion aa5 Disposition: 17:23 Co-signature as Attending Physician, Jim Monson MD I reviewed the patient's care rn provided by the Advanced Practice Provider and agree with the diagnosis and treatment plan. Disposition Summary: 12/11/22 16:32 Discharge Ordered Location: Home sb4 Problem: new sb4 Symptoms: have improved sb4 Condition: Stable sb4 Diagnosis - Headache sb4 Followup: sb4 - With: Private Physician - When: Tomorrow - Reason: Recheck today's complaints, Continuance of care, Re-evaluation by your physician Discharge Instructions: - General Headache Without Cause sb4 - Discharge Summary Sheet rs5 Forms: - Medication Reconciliation Form sb4 - Thank You Letter sb4 - Antibiotic Education sb4 - Prescription Opioid Use sb4 - Patient Portal Instructions sb4 - SBAR form rs5 Signatures: Dispatcher [employer] EDJim Cr MD MD rn Calderon, Audri RN RN aa5 Gabrielle Angeles PA-C PAAydin sb4 Jennyfer Daniels RN RN cm10 Corrections: (The following items were deleted from the chart) 13:44 13:38 Head Brain Wo Cont+CT.RAD.BRZ ordered. EDMS EDMS 13:58 13:54 Head Angio+CT.RAD.BRZ ordered. EDMS EDMS 13:58 13:54 Neck Angio+CT.RAD.BRZ ordered. EDMS EDMS
[2022-12-11 17:12] VITALS: TEMP 97.3
[2022-12-11 17:17] VITALS: O2SAT 99
[2022-12-11 17:20] VITALS: BP 137/87
--- NOTE | 2022-12-12 17:36 | EKG ---
Test Date: 2022-12-11 Test Time: 13:52:47 Shell Assembler: LAITH MEASUREMENT RESULTS: Intervals: Rate: 72 W[place]: 158 QRSD: 90 QT: 370 QTc: 405 [place]: P: 26 WY: 158 QRS: -29 T: 27 INTERPRETIVE STATEMENTS: Normal sinus rhythm Normal ECG Compared to ECG 11/21/2022 11:38:50 Ventricular premature complex(es) no longer present Left-axis deviation no longer present Electronically Signed On 12-12-22 17:33:41 CDT by Sean Antoine
== END 2022-12-11 16:59 | disposition home or self-care (01) ==
LOC: ER 13:13
DX: R51.9 Headache, unspecified (principal); R53.1 Weakness; E11.9 Type 2 diabetes mellitus without complications; I10 Essential (primary) hypertension; Z88.4 Allergy status to anesthetic agent; Z88.6 Allergy status to analgesic agent; Z88.8 Allergy status to other drugs, medicaments and biological substances; Z91.013 Allergy to seafood; Z91.041 Radiographic dye allergy status
CPT/HCPCS: 85025; 80048; 36415; 83735; 85610; 80076; 84484; 83880; 70450; J3475; J2765; J2270; J7040; 93005

== ENCOUNTER 2022-12-20 21:41 | Emergency (ER) | payer OTHER ==
--- OUTSIDE RECORDS SUMMARY | 2022-12-20 22:06 | XMS REPORT | Continuity of Care Document ---
:1970 Author Organization [facility] t Address [address] [facility] [address] [place] [address] Care Team Providers Name Role Phone NONE Primary Care Physician Unavailable AMANDA HANEY Attending Clinician Unavailable BELLE CATES Attending Clinician Unavailable Blessing Murphy Attending Clinician Jamila Phillips MD Attending Clinician [phone] BLESSING YANES Attending Clinician Unavailable Doctor Unassigned, [place] Attending Clinician Unavailable DILIP BOLTON Attending Clinician Unavailable JAMILA PHILLIPS Attending Clinician Unavailable Fabian [facility], Ashley Francis Attending Clinician Jennifer BRYSON, Dalila Ribera Attending Clinician [phone] Donta BRYSON, Belle Shelley Attending Clinician [phone] Ankita BRYSON, Mariangel Attending Clinician Medina BRYSON, Amanda Luna Attending Clinician [phone] Dilip Bolton MD Attending Clinician Hue Mcadams Attending Clinician CANDIDA PAUL Attending Clinician Unavailable Candida Poole [...] Db Attending Clinician Unavailable Ashley Rodriguez RN A Attending Clinician Unavailable Yissel Kelly Attending Clinician Unavailable Jany Vaughan Attending Clinician BETTY TREVIZO Attending Clinician Unavailable Betty Trevizo DO Attending Clinician IHSAN, KAY L Attending Clinician Unavailable KORY MATOS Attending Clinician Unavailable SOHA KNOX Attending Clinician Unavailable PRINCESS ZACARIAS Attending Clinician Unavailable SHANNAN WILCOX Attending Clinician Unavailable Cass Crespo MD Attending Clinician CASS CRESPO Attending Clinician Unavailable Therapist, Adc Respiratory Attending Clinician Unavailable Thanh Gay MD Attending Clinician THANH GAY Attending Clinician Unavailable Moralesmarco a ROBLES, Betty Attending Clinician CARMEN BETTY Attending Clinician Unavailable Mai BRYSON, Sindy Attending Clinician SINDY ONEILL Attending Clinician Unavailable Carlo BRYSON, Kory Leach Attending Clinician TOBI OLVERA Attending Clinician Unavailable TOBI OLVERA [...] Attending Clinician MILO [place] Attending Clinician Unavailable Catherine MURILLO, Johan Attending Clinician Trell Villagomez MD Attending Clinician Milo Ny MD Attending Clinician Rosanne Pino MD Mohamed Attending Clinician SHANNEN SIN Attending Clinician Unavailable ALYSSA WU Attending Clinician Unavailable Carrie BRYSON, Juan Attending Clinician Marleen Attending Clinician Unavailable PATI HONEYCUTT Attending Clinician Unavailable Klarissa BRYSON, Elver Santiago Attending Clinician [phone] Lashay BRYSON, Belia Eli Attending Clinician Donta MARY, Nicky Attending Clinician Dante BRYSON, Mary Attending Clinician Alma BRYSON, Mikey Attending Clinician [phone] Skye BRYSON, Emiliano Mitchell Attending Clinician Sean Antoine Attending Clinician Unavailable [...] Clinician Unavailable Alma BRYSON, Mikey Admitting Clinician [phone] Sean Antoine Admitting Clinician Unavailable MATT RAMOS Admitting Clinician Unavailable Payers Payer Name Policy Type Policy Number Effective Date Expiration Date Micheline holloway [employer] MEDICARE [id number] 2022 00:00:00 [place]ICAID [place] [id number] 2022 00:00:00 [facility]/[facility] DUAL [id number] 2021 COMP HMO D SNP 00:00:00 [place] [id number] 2018 00:00:00 [facility] [id number] DUAL COMPLETE - DUAL ELIGIBLE - SNP (MEDICARE-MEDICAID REPLACEMENT HMO) [employer] [id number] 2020 MEDICARE HMO DSNP 00:00:00 MEDICARE-PART B 5 [id number] 2020 00:00:00 [facility] [id number] 2017 DUAL COMPLETE 00:00:00 [place] ACS - [id number] TMHP - TRADITIONAL Problems Condition Condition Condition Status Onset Resolution Last Treating Co mments Source Name Details Category Date Date Treatment Clinician Date Subdural Subdural Disease Recurre [facility] [place] [id number] [facility] Fatty Fatty Disease Active 2021-05 Univers liver liver 0-06 ity of 00:00: [place] [facility] Elevated Elevated Disease Active Unive rs AST (SGOT) AST (SGOT) 9-26 it y of 00:00: [place] [facility] History of History of Disease Active U nivers transient transient 5-05 ity of ischemic ischemic 00:00: [place] attack attack 00 Medical (TIA) (TIA) Branch Chest pain Chest pain Disease Active U nivers 7-23 ity of 00:00: [place] [facility] Generalize Generalize Disease Active 2017-05 M ethodi d weakness d weakness 2- st 00:00: Hospita 00 l Arthralgia Arthralgia Disease Active 2017-05 M ethodi of of 2-20 st multiple multiple 00:00: Hospit a sites sites 00 l Nonspecifi Nonspecifi Disease Active 2017-05 U nivers c chest c chest 0-17 ity of pain pain 00:00: [place] [facility] Obesity Obesity Disease Active 2017-05 [...] nce 7-30 ity of mellitus mellitus 00:00: [place] with other with other 00 Me dical specified specified Bran ch complicati complicati on on SANDHYA SANDHYA Disease Recurre Univers (obstructi (obstructi nce 12-09 it y of ve sleep ve sleep 00:00: [place] apnea) apnea) 00 Medical Branch Essential Essential [...] ents Source Name Type Date Date Clinician Shellfis Propensi Active Anaphylaxis [facility] 7[facility]12 [facility] Containi adverse 00:00: Medical ng reaction Center Products s Atorvast Propensi Active Palpitations [facility] at[facility] ty to 7-12 [facility] adverse 00:00: Medical reaction Center s Iodine Propensi Active Anaphylaxis [facility] ty to 7-12 [facility] adverse 00:00: Medical reaction Center s Lisinopr Propensi Active Shortness Of [facility] il ty to Breath 7-12 [facility] adverse 00:00: Medical reaction Center s Ropiniro Propensi Active Other (See [facility] le ty to Comments) 712 [facility] adverse 00:00: Medical reaction Center s Shellfis Propensi Active Anaphylaxis 2022-[address] h ty to 712 [facility] Derived adverse 00:00: Medical reaction 00 Center s IODINE Allergy Active High Anaphylaxis 2022-0 [facility] 11-21 00:00: 00 LISINOPR Allergy Active High Sob 2022-0 [facility] IL 11-21 00:00: 00 SHELLFIS Allergy Active High Anaphylaxis 3-0 SL HV H 712 DERIVED 00:00: 00 SHELLFIS Allergy Active High Anaphylaxis 3-0 SL HV H 12 CONTAINI 00:00: NG 00 PRODUCTS ROPINIRO Allergy Active Other 2022-0 [facility] LE 11-21 00:00: 00 ATORVAST Allergy Active Low Palpitations 2022-0 S [facility] ATIN 11-21 00:00: 00 Seafood/ Food Active Anaphylaxis 2018-0 Uni vers Fish Allergy 7-23 ity of 00:00: [address] Branch SEAFOOD/ Food Active High Anaphylaxis 2019-0 Uni vers FISH 7-23 ity of 00:00: [address] Branch lisinopr DA Active [facility] 2019-0 [facility]05 [facility] d 00 [facility] iodine DA Active SV 2019-0 [facility] 4-05 [facility] 00:[facility]: d 00 [facility] Center lorazepa DA Active MO 2019-0 [facility] m 4-05 [facility] 00:[facility]: d 00 [facility] aspirin DA Active [place] 2019-0 [facility] 4-05 [facility] 00:00: d 00 [facility] Center ropiniro DA Active NH 2019-0 [facility] le 4-05 [facility] 00:00: d 00 [facility] Center lisinopr DA Active NH 2019-0 [facility] il 3-31 [facility] 00:00: d 00 Medical Center iodine DA Active SV 2019-0 [facility] 3-31 [facility] 00:00: d 00 Medical Center lorazepa DA Active MO 2019-0 [facility] m 3-31 [facility] 00:00: d 00 [facility] Center aspirin DA Active [place] 2019-0 [facility] 3-31 [facility] 00:00: d 00 [facility] Center ropiniro DA Active NH 2019-0 [facility] le 3-31 [facility] 00:00: d 00 [facility] Center iodine DA Active SV 2019-0 [facility] 1-05 [facility] 00:00: d 00 [facility] Center lisinopr DA Active NH 2019-0 [facility] il 1-01 [facility] 00:00: d 00 Medical Center iodine DA Active [place] 2019-0 [facility] 1-01 [facility] 00:00: d 00 Medical Center lorazepa DA Active MO 2019-0 [facility] m 1- [facility] 00:00: d 00 [facility] Center aspirin DA Active [place] 2019-0 [facility] 1 [facility] 00:00: d 00 Medical Center ropiniro DA Active [place] 2018-0 [facility] le 05-13 [facility] 00:00: d 00 [facility] Lisinopr Propensi Active Cough 2017-05 Persisten Uni vers il ty to 0-17 t cough ity of adverse 00:00: [place] reaction 00 Medical s to Branch drug LISINOPR DRUG Active Med COUGH 2017-05 Univers IL INGREDI 0-17 ity of 00:00: [place] 00 Medical [place] lorazepa DA Active MO 2017-05 [facility] m 0-14 [facility] 00:00: d 00 [facility] lisinopr DA Active NH 0 [facility] il 8-25 Clear 00:00: [place] 00 [facility] iodine DA Active NH 2017- [facility] 8-25 Clear 00:00: [place] 00 [facility] aspirin DA Active NH [facility] 8-25 Clear 00:00: [place] 00 [facility] ropiniro DA Active NH [facility] le 8-25 Clear 00:00: [place] 00 [facility] Atorvast Propensi Active Other - See CoughCou g Univers atin ty to comments 7-30 h ity of adverse 00:00: [place] reaction 00 Medical s Branch ATORVAST DRUG Active Low Unknown-Cmnt Un alfonso ATIN INGREDI 7 ity of 00:00: [place] [facility] Atorvast Propensi Active Other (See Cough Me thodi atin ty to Comments) 730 st adverse 00:00: Hospita reaction 00 l [...] back surgery pt went into cardiac arrest. ([facility]) . Ropiniro Propensi Active Hypotensi Met hodi [...] Hives Univers INGREDI 05-19 ity of 00:00: Medical Branch Iodine Propensi Active Hives IV iodine Metho di ty to 05-[address] adverse 00:00: iodine Hospita reaction 00 -Cardiac l s to arrest drug Iodine drug Active [facility] allergy Physici ans NO KNOWN Allergy Active [facility] Family History Family Member Diagnosis Comments Start Date Stop Date Source Maternal grandfather No Known Problems [facility] [place] [facility] Paternal grandfather No Known Problems [facility] [place] [facility] Paternal grandmother No Known Problems [facility] [place] [facility] Natural father Hypertension [facility] Natural father Stroke [facility] [place] [facility] Natural father Diabetes type II [facility] Maternal grandmother Cancer [facility]aternal grandmother Diabetes [facility] Natural mother Diabetes [facility] [place] [facility] Natural mother [facility]pertension [facility] Natural mother Stroke [facility] [place] [facility] Natural sister Cancer [facility] [place] [facility] Natural sister Diabetes type II [facility] Natural sister Ovarian cancer [facility] Natural brother Leukemia [facility] [place] [facility] Social History Social Habit Start Date Stop Date Quantity Comments Source Gender identity [facility] Sexual orientation [facility] Exposure to 2022-03-24 2022-04-03 Not sure University SARS-CoV-2 (event) 00:00:00 13:26:00 [facility] Tobacco use and 2022-02-02 2022-02-02 Smokeless Universit y of exposure 00:00:00 00:00:00 tobacco non-user [facility] History of Social 2019-01-02 2019-01-[address] function 00:00:00 00:00:00 Hospital Alcohol intake 2018-05-01 2018-05-01 Current [facility] 00:00:00 00:00:00 non-drinker of Hospital alcohol (finding) Sex Ass[birth year] At [birth year] GLENIS [place] 00:00:00 00:00:00 Medical Center Smoking Status Start Date Stop Date Source Never smoked tobacco [facility] Medications Ordered Filled Start Stop Current Ordering Indication Dosage Frequency Signature Comments Components Source Medication Medication Date Date Medication? Clinician (SIG) Name Name EFRAÍN Yes [id number] TAKE 1 Univers 10 mg 8-10 TABLET BY ity of tablet 00:00: MOUTH IN [place] 00 THE Medical MORNING Branch metoprolol 2022- No 25mg Take 1 Univ [...] and 1 tablet in the evening. metFORMIN 2022-0 Yes [id number] 1000mg Take 1 Univers 1,000 mg 7-19 tablet by ity of tablet 00:00: mouth in [place] 00 the Medical morning Branch and 1 tablet in the evening. Take with meals. MUST BE SEEN FOR FURTHER REFILLS pantoprazol 2022-0 Yes [id number] 40mg Take 1 Univers e 40 mg EC 7-19 tablet by ity of tablet 00:00: mouth in [place] the Medical morning. Branch metoprolol 2022-0 Yes [id number] 25mg Take 1 U nivers tartrate 25 7-19 tablet by ity of mg tablet 00:00[place] the [place] and 1 tablet in the evening. Blood-Gluco 2022-0 Yes [id number] Use as Univers se Meter 7-19 directed. ity of (ONETOUCH 00:00: May [place] VERIO FLEX 00 substitute Med ical START) Kit brand Branch preferred by insurance blood sugar 2022-0 Yes [id number] Test bid Univers diagnostic 7-19 daily for ity of (ONETOUCH 00:00: diagnosis Adrien as VERIO TEST 00 code E11.9 Med ical STRIPS) May Branch strip substitute brand preferred by insurance Lancing 2022-0 Yes [id number] Test bid Un alfonso Device with 7-19 daily. Use it y of Lancets 00:00: as [place] (ONE TOUCH 00 directed. Medi lula DELICA) Kit May Branch substitute brand preferred by insurance metFORMIN 2022-0 Yes [id number] 1000mg Take 1 Univers 1,000 mg 7-19 tablet by ity of tablet 00:00: mouth in [place] the Medical morning Branch and 1 tablet in the evening. Take with meals. MUST BE SEEN FOR FURTHER REFILLS pantoprazol 2022-0 Yes [id number] 40mg Take 1 Univers e 40 mg EC 7-19 tablet by ity of tablet 00:00: mouth in [place] 00 the Medical morning. Branch metoprolol 2022-0 Yes [id number] 25mg Take 1 U nivers tartrate 25 7-19 tablet by ity of mg tablet 00:00: [place] the [place] morning Branch and 1 tablet in the evening. Blood-Gluco 2022-0 Yes [id number] Use as Univers se Meter 7-19 directed. ity of (ONETOUCH 00:00: September [place] VERIO FLEX 00 substitute Med ical START) Kit brand Branch preferred by insurance blood sugar 0 Yes [id number] Test bid Univers diagnostic 7-19 daily for ity of (ONETOUCH 00:00: diagnosis Adrien as VERIO TEST 00 code E11.9 Med ical STRIPS) May Branch strip substitute brand preferred by insurance Lancing Yes [id number] Test bid Un alfonso Device with 7-19 daily. Use it y of Lancets 00:00: as [place] (ONE TOUCH 00 directed. [facility]) Kit May Branch substitute brand preferred by insurance metFORMIN Yes [id number] 1000mg Take 1 Univers 1,000 mg 7-19 tablet by ity of tablet 00:00: mouth in [place] the Medical morning Branch and 1 tablet in the evening. Take with meals. MUST BE SEEN FOR FURTHER REFILLS pantoprazol Yes [id number] 40mg Take 1 Univers e 40 mg EC 7-19 tablet by ity of tablet 00:00: mouth in [place] the Medical morning. Branch metoprolol Yes [id number] 25mg Take 1 U nivers tartrate 25 7-19 tablet by ity of mg tablet 00:00: mouth in [facility] 00 the Medical morning Branch and 1 tablet in the evening. Blood-Gluco Yes [id number] Use as Univers se Meter 7-19 directed. ity of (ONETOUCH 00:00: May [place] VERIO FLEX 00 substitute Med ical START) Kit brand Branch preferred by insurance blood sugar 0 Yes [id number] Test bid Univers diagnostic 7-19 daily for ity of (ONETOUCH 00:00: diagnosis Adrien as VERIO TEST 00 code E11.9 Med ical STRIPS) May Branch strip substitute brand preferred by insurance Lancing Yes [id number] Test bid Un alfonso Device with 7-19 daily. Use it y of Lancets 00:00: as [place] (ONE TOUCH 00 directed. [facility]) Kit May Branch substitute brand preferred by insurance metFORMIN Yes [id number] 1000mg Take 1 Univers 1,000 mg 7-19 tablet by ity of tablet 00:00: mouth in [place] the Medical morning Branch and 1 tablet in the evening. Take with meals. MUST BE SEEN FOR FURTHER REFILLS pantoprazol 0 Yes [id number] 40mg Take 1 Univers e 40 mg EC 7-19 tablet by ity of tablet 00:00: mouth in [place] the Medical morning. Branch metoprolol Yes [id number] 25mg Take 1 U nivers tartrate 25 7-19 tablet by ity of mg tablet 00:00: mouth in [facility] the Medical morning Branch and 1 tablet in the evening. Blood-Gluco 2022-0 Yes [id number] Use as Univers se Meter 7-19 directed. ity of (ONETOUCH 00:00: May [place] VERIO FLEX 00 substitute Med ical START) Kit brand Branch preferred by insurance blood sugar Yes [id number] Test bid Univers diagnostic 7-19 daily for ity of (ONETOUCH 00:00: diagnosis Adrien as VERIO TEST 00 code E11.9 Med ical STRIPS) May Branch strip substitute brand preferred by insurance Lancing Yes [id number] Test bid Un alfonso Device with 7-19 daily. Use it y of Lancets 00:00: as [place] (ONE TOUCH 00 directed. Medi lula DELICA) Kit May Branch substitute brand preferred by insurance metFORMIN Yes [id number] 1000mg Take 1 Univers 1,000 mg 7-19 tablet by ity of tablet 00:00: mouth in [place] the Medical morning Branch and 1 tablet in the evening. Take with meals. MUST BE SEEN FOR FURTHER REFILLS pantoprazol 0 Yes [id number] 40mg Take 1 Univers e 40 mg EC 7-19 tablet by ity of tablet 00:00: mouth in [place] the Medical morning. Branch metoprolol Yes [id number] 25mg Take 1 U nivers tartrate 25 7-19 tablet by ity of mg tablet 00:00: mouth in [facility] the Medical morning Branch and 1 tablet in the evening. Blood-Gluco 2022-0 Yes [id number] Use as Univers se Meter 7-19 directed. ity of (ONETOUCH 00:00: May [place] VERIO FLEX 00 substitute Med ical START) Kit brand Branch preferred by insurance blood sugar 0 Yes [id number] Test bid Univers diagnostic 7-19 daily for ity of (ONETOUCH 00:00: diagnosis Adrien as VERIO TEST 00 code E11.9 Med ical STRIPS) May Branch strip substitute brand preferred by insurance Lancing 2023-0 Yes [id number] Test bid Un alfonso Device with 7-19 daily. Use it y of Lancets 00:00: as [place] (ONE TOUCH 00 directed. [facility]) Kit May Branch substitute brand preferred by insurance metFORMIN 2022-0 Yes [id number] 1000mg Take 1 Univers 1,000 mg 7-19 tablet by ity of tablet 00:00: mouth in [place] 00 the Medical morning Branch and 1 tablet in the evening. Take with meals. MUST BE SEEN FOR FURTHER REFILLS pantoprazol 2022-0 Yes [id number] 40mg Take 1 Univers e 40 mg EC 7-19 tablet by ity of tablet 00:00: mouth in [place] 00 the Medical morning. Branch metoprolol 2022-0 Yes [id number] 25mg Take 1 U nivers tartrate 25 7-19 tablet by ity of mg tablet 00:00: [place] the Medical morning Branch and 1 tablet in the evening. Blood-Gluco 0 Yes [id number] Use as Univers se Meter 7-19 directed. ity of (ONETOUCH 00:00: May [place] VERIO FLEX 00 substitute Med ical START) Kit brand Branch preferred by insurance blood sugar 2022-0 Yes [id number] Test bid Univers diagnostic 7-19 daily for ity of (ONETOUCH 00:00: diagnosis Adrien as VERIO TEST 00 code E11.9 Med ical STRIPS) May Branch strip substitute brand preferred by insurance Lancing 0 Yes [id number] Test bid Un alfonso Device with 7-19 daily. Use it y of Lancets 00:00: as [place] (ONE TOUCH 00 directed. [facility]) Kit May Branch substitute brand preferred by insurance metFORMIN 2022-0 Yes [id number] 1000mg Take 1 Univers 1,000 mg 7-19 tablet by ity of tablet 00:00: mouth in [place] 00 the Medical morning Branch and 1 tablet in the evening. Take with meals. MUST BE SEEN FOR FURTHER REFILLS pantoprazol 2022-0 Yes [id number] 40mg Take 1 Univers e 40 mg EC 7-19 tablet by ity of tablet 00:00: mouth in [place] 00 the Medical morning. Branch metoprolol 2022-0 Yes [id number] 25mg Take 1 U nivers tartrate 25 7-19 tablet by ity of mg tablet 00:00: [place] the Medical morning Branch and 1 tablet in the evening. Blood-Gluco Yes [id number] Use as Univers se Meter 7-19 directed. ity of (ONETOUCH 00:00: May [place] VERIO FLEX 00 substitute Med ical START) Kit brand Branch preferred by insurance blood sugar 0 Yes [id number] Test bid Univers diagnostic 7-19 daily for ity of (ONETOUCH 00:00: diagnosis Adrien as VERIO TEST 00 code E11.9 Med ical STRIPS) May Branch strip substitute brand preferred by insurance Lancing Yes [id number] Test bid Un alofnso Device with 7-19 daily. Use it y of Lancets 00:00: as [place] (ONE TOUCH 00 directed. Medi lula DELICA) Kit May Branch substitute brand preferred by insurance metFORMIN 0 Yes [id number] 1000mg Take 1 Univers 1,000 mg 7-19 tablet by ity of tablet 00:00: mouth in the Medical morning Branch and 1 tablet in the evening. Take with meals. MUST BE SEEN FOR FURTHER REFILLS pantoprazol 0 Yes [id number] 40mg Take 1 Univers e 40 mg EC 7-19 tablet by ity of tablet 00:00: mouth in the Medical morning. Branch metoprolol 0 Yes [id number] 25mg Take 1 U nivers tartrate 25 7-19 tablet by ity of mg tablet 00:00: mouth in [facility] the Medical morning Branch and 1 tablet in the evening. Blood-Gluco Yes [id number] Use as Univers se Meter 7-19 directed. ity of (ONETOUCH 00:00: September [place] VERIO FLEX 00 substitute Med ical START) Kit brand Branch preferred by insurance blood sugar 0 Yes [id number] Test bid Univers diagnostic 7-19 daily for ity of (ONETOUCH 00:00: diagnosis Adrien as VERIO TEST 00 code E11.9 Med ical STRIPS) May Branch strip substitute brand preferred by insurance Lancing 0 Yes [id number] Test bid Un alfonso Device with 7-19 daily. Use it y of Lancets 00:00: as [place] (ONE TOUCH 00 directed. Medi lula DELICA) Kit May Branch substitute brand preferred by insurance metFORMIN 0 Yes [id number] 1000mg Take 1 Univers 1,000 mg 7-19 tablet by ity of tablet 00:00: mouth in [place] the Medical morning Branch and 1 tablet in the evening. Take with meals. MUST BE SEEN FOR FURTHER REFILLS pantoprazol Yes [id number] 40mg Take 1 Univers e 40 mg EC 7-19 tablet by ity of tablet 00:00: mouth in [place] the Medical morning. Branch metoprolol Yes [id number] 25mg Take 1 U nivers tartrate 25 7-19 tablet by ity of mg tablet 00:00: [place] the Medical morning Branch and 1 tablet in the evening. Blood-Gluco Yes [id number] Use as Univers se Meter 7-19 directed. ity of (ONETOUCH 00:00: September [place] VERIO FLEX 00 substitute Med ical START) Kit brand Branch preferred by insurance blood sugar Yes [id number] Test bid Univers diagnostic 7-19 daily for ity of (ONETOUCH 00:00: diagnosis Adrien as VERIO TEST 00 code E11.9 Med ical STRIPS) May Branch strip substitute brand preferred by insurance Lancing Yes [id number] Test bid Un alfonso Device with 7-19 daily. Use it y of Lancets 00:00: as [place] (ONE TOUCH 00 directed. Medi lula DELICA) Kit May Branch substitute brand preferred by insurance metFORMIN Yes [id number] 1000mg Take 1 Univers 1,000 mg 7-19 tablet by ity of tablet 00:00: mouth in [place] the Medical morning Branch and 1 tablet in the evening. Take with meals. MUST BE SEEN FOR FURTHER REFILLS pantoprazol 2022-0 Yes [id number] 40mg Take 1 Univers e 40 mg EC 7-19 tablet by ity of tablet 00:00: mouth in [place] the Medical morning. Branch metoprolol Yes [id number] 25mg Take 1 U nivers tartrate 25 7-19 tablet by ity of mg tablet 00:00: [place] the Medical morning Branch and 1 tablet in the evening. Blood-Gluco 0 Yes [id number] Use as Univers se Meter 7-19 directed. ity of (ONETOUCH 00:00: May [place] VERIO FLEX 00 substitute Med ical START) Kit brand Branch preferred by insurance blood sugar 2022- Yes [id number] Test bid Univers diagnostic 7-19 daily for ity of (ONETOUCH 00:00: diagnosis Adrien as VERIO TEST 00 code E11.9 Med ical STRIPS) May Branch strip substitute brand preferred by insurance Lancing Yes [id number] Test bid Un alfonso Device with 7-19 daily. Use it y of Lancets 00:00: as [place] (ONE TOUCH 00 directed. [facility]) Kit May Branch substitute brand preferred by insurance metFORMIN Yes [id number] 1000mg Take 1 Univers 1,000 mg 7-19 tablet by ity of tablet 00:00: mouth in [place] the Medical morning Branch and 1 tablet in the evening. Take with meals. MUST BE SEEN FOR FURTHER REFILLS pantoprazol Yes [id number] 40mg Take 1 Univers e 40 mg EC 7-19 tablet by ity of tablet 00:00: mouth in [place] the Medical morning. Branch metoprolol Yes [id number] 25mg Take 1 U nivers tartrate 25 7-19 tablet by ity of mg tablet 00:00: mouth in [facility] the Medical morning Branch and 1 tablet in the evening. Blood-Gluco Yes [id number] Use as [facility] se Meter 7-19 directed. ity of (ONETOUCH 00:00: May [place] VERIO FLEX 00 substitute Med ical START) Kit brand Branch preferred by insurance blood sugar Yes [id number] Test bid [facility] diagnostic 7-19 daily for ity of (ONETOUCH 00:00: diagnosis [place] as VERIO TEST 00 code E11.9 Med ical STRIPS) May Branch strip substitute brand preferred by insurance Lancing Yes [id number] Test bid Un alfonso Device with 7-19 daily. Use it y of Lancets 00:00: as [place] (ONE TOUCH 00 directed. [facility] lula DELICA) Kit May Branch substitute brand preferred by insurance metFORMIN Yes [id number] 1000mg Take 1 [facility] 1,000 mg 7-19 tablet by ity of tablet 00:00: mouth in [place] the Medical morning Branch and 1 tablet in the evening. Take with meals. MUST BE SEEN FOR FURTHER REFILLS pantoprazol 0 Yes [id number] 40mg Take 1 [facility] e 40 mg EC 7-19 tablet by ity of tablet 00:00: mouth in [place] the Medical morning. Branch metoprolol Yes [id number] 25mg Take 1 U nivers tartrate 25 7-19 tablet by ity of mg tablet 00:00: mouth in [facility] the Medical morning Branch and 1 tablet in the evening. Blood-Gluco 0 Yes [id number] Use as [facility] se Meter 7-19 directed. ity of (ONETOUCH 00:00: May [place] VERIO FLEX 00 substitute Med ical START) Kit brand Branch preferred by insurance blood sugar 0 Yes [id number] Test bid [facility] diagnostic 7-19 daily for ity of (ONETOUCH 00:00: diagnosis [place]rien as VERIO TEST 00 code E11.9 Med ical STRIPS) May Branch strip substitute brand preferred by insurance Lancing Yes [id number] Test bid Un alfonso Device with 7-19 daily. Use it y of Lancets 00:00: as [place] (ONE TOUCH 00 directed. Medi lula DELICA) Kit May Branch substitute brand preferred by insurance metFORMIN Yes [id number] 1000mg Take 1 [facility] 1,000 mg 7-19 tablet by ity of tablet 00:00: mouth in [place] the Medical morning Branch and 1 tablet in the evening. Take with meals. MUST BE SEEN FOR FURTHER REFILLS pantoprazol 0 Yes [id number] 40mg Take 1 [facility] e 40 mg EC 7-19 tablet by ity of tablet 00:00: mouth in [place] the morning. Branch metoprolol 0 Yes [id number] 25mg Take 1 U nivers tartrate 25 7-19 tablet by ity of mg tablet 00:00: mouth in [facility] the Medical morning Branch and 1 tablet in the evening. Blood-Gluco 0 Yes [id number] Use as [facility] se Meter 7-19 directed. ity of (ONETOUCH 00:00: May [place] VERIO FLEX 00 substitute Med ical START) Kit brand Branch preferred by insurance blood sugar 0 Yes [id number] Test bid [facility] diagnostic 7-19 daily for ity of (ONETOUCH 00:00: diagnosis [place] as VERIO TEST 00 code E11.9 Med ical STRIPS) May Branch strip substitute brand preferred by insurance Lancing 0 Yes [id number] Test bid Un alfonso Device with 7-19 daily. Use it y of Lancets 00:00: as [place] (ONE TOUCH 00 directed. [facility]) Kit May Branch substitute brand preferred by insurance metFORMIN 0 Yes [id number] 1000mg Take 1 [facility] 1,000 mg 7-19 tablet by ity of tablet 00:00: mouth in [place] the Medical morning Branch and 1 tablet in the evening. Take with meals. MUST BE SEEN FOR FURTHER REFILLS pantoprazol 2022-0 Yes [id number] 40mg Take 1 [facility] e 40 mg EC 7-19 tablet by ity of tablet 00:00: mouth in [place] the Medical morning. Branch metoprolol 2022-0 Yes [id number] 25mg Take 1 U nivers tartrate 25 7-19 tablet by ity of mg tablet 00:00: mouth in [facility] the morning Branch and 1 tablet in the evening. Blood-Gluco 0 Yes [id number] Use as [facility] se Meter 7-19 directed. ity of (ONETOUCH 00:00: May [place] VERIO FLEX 00 substitute Med ical START) Kit brand Branch preferred by insurance blood sugar 0 Yes [id number] Test bid [facility] diagnostic 7-19 daily for ity of (ONETOUCH 00:00: diagnosis [place]rien as VERIO TEST 00 code E11.9 Med ical STRIPS) May Branch strip substitute brand preferred by insurance Lancing 0 Yes [id number] Test bid Un alfonso Device with 7-19 daily. Use it y of Lancets 00:00: as [place] (ONE TOUCH 00 directed. [facility] Kit May Branch substitute brand preferred by insurance metFORMIN 0 Yes [id number] 1000mg Take 1 [facility] 1,000 mg 7-19 tablet by ity of tablet 00:00: mouth in [place] the Medical morning Branch and 1 tablet in the evening. Take with meals. MUST BE SEEN FOR FURTHER REFILLS pantoprazol 2022-0 Yes [id number] 40mg Take 1 [facility] e 40 mg EC 7-19 tablet by ity of tablet 00:00: mouth in [place] the morning. Branch metoprolol 2022-0 Yes [id number] 25mg Take 1 U nivers tartrate 25 7-19 tablet by ity of mg tablet 00:00: mouth in [facility] the Medical morning Branch and 1 tablet in the evening. Blood-Gluco 2022-0 Yes [id number] Use as [facility] se Meter 7-19 directed. ity of (ONETOUCH 00:00: May [place] VERIO FLEX 00 substitute Med ical START) Kit brand Branch preferred by insurance blood sugar Yes [id number] Test bid [facility] diagnostic 7-19 daily for ity of (ONETOUCH 00:00: diagnosis [place]rien as VERIO TEST 00 code E11.9 Med ical STRIPS) May Branch strip substitute brand preferred by insurance Lancing Yes [id number] Test bid Un alfonso Device with 7-19 daily. Use it y of Lancets 00:00: as [place] (ONE TOUCH directed. [facility] lula DELplista) Kit May Branch substitute brand preferred by insurance metFORMIN Yes [id number] 1000mg Take 1 [facility] 1,000 mg 7-19 tablet by ity of tablet 00:00: mouth in the Medical morning Branch and 1 tablet in the evening. Take with meals. MUST BE SEEN FOR FURTHER REFILLS pantoprazol Yes [id number] 40mg Take 1 [facility] e 40 mg EC 7-19 tablet by ity of tablet 00:00: mouth in the Medical morning. Branch metoprolol Yes [id number] 25mg Take 1 U nivers tartrate 25 7-19 tablet by ity of mg tablet 00:00: mouth in [facility] the Medical morning Branch and 1 tablet in the evening. Blood-Gluco Yes [id number] Use as [facility] se Meter 7-19 directed. ity of (ONETOUCH 00:00: May [place] VERIO FLEX 00 substitute Med ical START) Kit brand Branch preferred by insurance blood sugar Yes [id number] Test bid [facility] diagnostic 7-19 daily for ity of (ONETOUCH 00:00: diagnosis [place] as VERIO TEST 00 code E11.9 Med ical STRIPS) May Branch strip substitute brand preferred by insurance Lancing Yes [id number] Test bid Un alfon[place] Device with 7-19 daily. Use it y of Lancets 00:00: as [place] (ONE TOUCH 00 directed. Medi lula DELICA) Kit May Branch substitute brand preferred by insurance metFORMIN Yes [id number] 1000mg Take 1 [facility] 1,000 mg 7-19 tablet by ity of tablet 00:00: mouth in the Medical morning Branch and 1 tablet in the evening. Take with meals. MUST BE SEEN FOR FURTHER REFILLS pantoprazol Yes [id number] 40mg Take 1 [facility] e 40 mg EC 7-19 tablet by ity of tablet 00:00: mouth in [place] the morning. Branch metoprolol Yes [id number] 25mg Take 1 U nivers tartrate 25 7-19 tablet by ity of mg tablet 00:00: mouth in s the Medical morning Branch and 1 tablet in the evening. Blood-Gluco 2022-0 Yes [id number] Use as [facility] se Meter 7-19 directed. ity of (ONETOUCH 00:00: September [place] VERIO FLEX 00 substitute Med ical START) Kit brand Branch preferred by insurance blood sugar Yes [id number] Test bid [facility] diagnostic 7-19 daily for ity of (ONETOUCH 00:00: diagnosis [place] as VERIO TEST 00 code E11.9 Med ical STRIPS) May Branch strip substitute brand preferred by insurance Lancing Yes [id number] Test bid Un [place] Device with 7-19 daily. Use it y of Lancets 00:00: as [place] (ONE TOUCH 00 directed. Medi lula DELICA) Kit May Branch substitute brand preferred by insurance metFORMIN Yes [id number] 1000mg Take 1 [facility] 1,000 mg 7-19 tablet by ity of tablet 00:00: mouth in [place] the Medical morning Branch and 1 tablet in the evening. Take with meals. MUST BE SEEN FOR FURTHER REFILLS pantoprazol 2022-0 Yes [id number] 40mg Take 1 [facility] e 40 mg EC 7-19 tablet by ity of tablet 00:00: mouth in [place] the morning. Branch metoprolol Yes [id number] 25mg Take 1 U nivers tartrate 25 7-19 tablet by ity of mg tablet 00:00: mouth in the Medical morning Branch and 1 tablet in the evening. Blood-Gluco 2022-0 Yes [id number] Use as [facility] se Meter 7-19 directed. ity of (ONETOUCH 00:00: September [place] VERIO FLEX 00 substitute Med ical START) Kit brand Branch preferred by insurance blood sugar 2022-0 Yes [id number] Test bid [facility] diagnostic 7-19 daily for ity of (ONETOUCH 00:00: diagnosis [place] as VERIO TEST 00 code E11.9 Med ical STRIPS) May Branch strip substitute brand preferred by insurance Lancing 0 Yes [id number] Test bid Un [place] Device with 7-19 daily. Use it y of Lancets 00:00: as [place] (ONE TOUCH 00 directed. [facility]) Kit May Branch substitute brand preferred by insurance metFORMIN 0 Yes [id number] 1000mg Take 1 [facility] 1,000 mg 7-19 tablet by ity of tablet 00:00: mouth in [place] the Medical morning Branch and 1 tablet in the evening. Take with meals. MUST BE SEEN FOR FURTHER REFILLS pantoprazol 0 Yes [id number] 40mg Take 1 [facility] e 40 mg EC 7-19 tablet by ity of tablet 00:00: mouth in [place] the morning. Branch metoprolol Yes [id number] 25mg Take 1 U nivers tartrate 25 7-19 tablet by ity of mg tablet 00:00: mouth in [facility] the morning Branch and 1 tablet in the evening. Blood-Gluco Yes [id number] Use as [facility] se Meter 7-19 directed. ity of (ONETOUCH 00:00: May [place] VERIO FLEX 00 substitute Med ical START) Kit brand Branch preferred by insurance blood sugar 0 Yes [id number] Test bid [facility] diagnostic 7-19 daily for ity of (ONETOUCH 00:00: diagnosis [place] as VERIO TEST 00 code E11.9 Med ical STRIPS) May Branch strip substitute brand preferred by insurance Lancing 0 Yes [id number] Test bid Un alfonso Device with 7-19 daily. Use it y of Lancets 00:00: as [place] (ONE TOUCH 00 directed. [facility]) Kit May Branch substitute brand preferred by insurance metFORMIN Yes [id number] 1000mg Take 1 [facility] 1,000 mg 7-19 tablet by ity of tablet 00:00: mouth in [place] the morning Branch and 1 tablet in the evening. Take with meals. MUST BE SEEN FOR FURTHER REFILLS pantoprazol 2022-0 Yes [id number] 40mg Take 1 [facility] e 40 mg EC 7-19 tablet by ity of tablet 00:00: mouth in [place] the morning. Branch metoprolol 2022-0 Yes [id number] 25mg Take 1 U nivers tartrate 25 7-19 tablet by [place] of mg tablet [place] Branch and 1 tablet in the evening. Blood-Gluco 2022-0 Yes [id number] Use as [facility] se Meter 7-19 directed. ity of (ONETOUCH 00:00: May [place] VERIO FLEX 00 substitute Med ical START) Kit brand Branch preferred by insurance blood sugar 0 Yes [id number] Test bid [facility] diagnostic 7-19 daily for ity of (ONETOUCH 00:00: diagnosis [place] as VERIO TEST 00 code E11.9 Med ical STRIPS) May Branch strip substitute brand preferred by insurance Lancing 0 Yes [id number] Test bid Un alfonso Device with 7-19 daily. Use it y of Lancets 00:00: as [place] (ONE TOUCH 00 directed. Medi lula DELICA) Kit May Branch substitute brand preferred by insurance omeprazole 2022-0 Yes 20mg QD [facility] MG 11:27: (20 mg Medical capsule 02 total) by Center mouth daily. montelukast 2022-0 Yes 10mg QD Take [address] [facility] (SINGULAIR) 7-17 tablet (10 [facility] 10 mg 11:27: mg total) Medical tablet 02 by mouth Center daily. losartan 2022-0 Yes 50mg QD Take [address] [facility] (COZAAR) 50 7-17 tablet (50 [facility] MG tablet 11:27: mg total) Med ical 02 by mouth Center daily. metoprolol 2022-0 Yes 25mg Q.5D Take [facility] tartrate 7-[facility] (25 [facility] (LOPRESSOR) 11:27: mg total) M edical 25 MG 02 by mouth 2 Center tablet (two) times daily. budesonide- 2022-0 Yes maintenance 2{puff} Q.5D Inhale [address] [facility] formoteroL 7-17 therapy for puffs by [facility] (SYMBICORT) 11:27: asthma mouth via Medical 160-4.5 02 inhaler 2 Center mcg/actuati (two) on inhaler times daily. pregabalin 2022-0 Yes 200mg Take [address] [facility] (LYRICA) 7-17 capsule [facility] 200 MG 11:27: (200 mg Medical capsule 02 total) by Center mouth 2 (two) times daily as needed As needed for back pain. Max Daily Amount: 400 mg omeprazole 2022-0 Yes 20mg QD Take 1 [facility] (PriLOSEC) 7-17 [facility] 20 MG 11:27: (20 mg Medical capsule 02 total) by Center mouth daily. montelukast 3-0 Yes 10mg QD Take [address] [facility] (SINGULAIR) 7-17 tablet (10 [facility] 10 mg 11:27: mg total) Medical tablet 02 by mouth Center daily. losartan 2022-0 Yes 50mg QD Take [address] [facility] (COZAAR) 50 7-17 tablet (50 [facility]ela [facility] MG tablet 11:27: mg total) Med ical 02 by mouth Center daily. metoprolol 2022-0 Yes 25mg Q.5D Take 1 [facility] tartrate 7-[facility] tablet (25 [facility] (LOPRESSOR) 11:27: mg total) M edical 25 MG 02 by mouth 2 Center tablet (two) times daily. budesonide- 2022-0 Yes maintenance 2{puff} Q.5D Inhale [address] [facility] formoteroL 7-17 therapy for puffs by [facility] (SYMBICORT) 11:27: asthma mouth via Medical 160-4.5 02 inhaler 2 Center mcg/actuati (two) on inhaler times daily. pregabalin 2022-0 Yes 200mg Take [address] [facility] (LYRICA) 7-17 capsule [facility] 200 MG 11:27: (200 mg Medical capsule 02 total) by Center mouth 2 (two) times daily as needed As needed for back pain. Max Daily Amount: 400 mg metFORMIN 2022-0 2023- No 1000mg Take [address] [facility] (GLUCOPHAGE 7-17 -14 tablet [facility] ) 1000 MG 11:27: 00:00 (1,000 mg Me dical tablet 02 :00 total) by Center mouth 2 (two) times daily with breakfast and dinner. metFORMIN 2022-0 2023- No 1000mg Take [address] [facility] (GLUCOPHAGE 7-17 -14 tablet [facility] ) 1000 MG 11:27: 00:00 (1,000 mg Me dical tablet 02 :00 total) by Center mouth 2 (two) times daily with breakfast and dinner. clopidogreL 2022-0 2024- Yes 75mg QD Take [address] [facility] (PLAVIX) 75 7-17 07-16 tablet (75 [facility] mg tablet 00:00: 23:59 mg total) Me dical 00 :00 by mouth Center daily . clopidogreL 2023-0 2024- Yes 75mg QD Take [address] [facility] (PLAVIX) 75 7-17 07-16 tablet (75 [facility] mg tablet 00:00: 23:59 mg total) Me dical 00 :00 by mouth Center daily . clopidogreL 2023-0 Yes 75mg Take 1 [facility] ers 75 mg 7-16 tablet by ity of tablet 00:00: mouth in [place] the Medical morning. Branch clopidogreL 2023-0 Yes 75mg Take 1 Univ ers 75 mg 7-16 tablet by ity of tablet 00:00: mouth in [place] the Medical morning. Branch clopidogreL 2023-0 Yes 75mg Take 1 Univ ers 75 mg 7-16 tablet by ity of tablet 00:00: mouth in [place] the Medical morning. Branch clopidogreL 2023-0 Yes 75mg Take 1 Univ ers 75 mg 7-16 tablet by ity of tablet 00:00: mouth in [place] the Medical morning. Branch clopidogreL 2023-0 Yes 75mg Take 1 Univ ers 75 mg 7-16 tablet by ity of tablet 00:00: mouth in [place] the Medical morning. Branch clopidogreL 2023-0 Yes 75mg Take 1 Univ ers 75 mg 7-16 tablet by ity of tablet 00:00: mouth in [place] the Medical morning. Branch clopidogreL 2023-0 Yes 75mg Take 1 Univ ers 75 mg 7-16 tablet by ity of tablet 00:00: mouth in [place] the Medical morning. Branch clopidogreL 2023-0 Yes 75mg Take 1 Univ ers 75 mg 7-16 tablet by ity of tablet 00:00: mouth in [place] the Medical morning. Branch clopidogreL 2023-0 Yes 75mg Take 1 Univ ers 75 mg 7-16 tablet by ity of tablet 00:00: mouth in [place] the Medical morning. Branch clopidogreL 2023-0 Yes 75mg Take 1 Univ ers 75 mg 7-16 tablet by ity of tablet 00:00: mouth in [place] the Medical morning. Branch clopidogreL 2023-0 Yes 75mg Take 1 Univ ers 75 mg 7-16 tablet by ity of tablet 00:00: mouth in [place] the Medical morning. Branch clopidogreL 2023-0 Yes 75mg Take 1 Univ ers 75 mg 7-16 tablet by ity of tablet 00:00: mouth in [place] the Medical morning. Branch clopidogreL 2023-0 Yes 75mg Take 1 Univ ers 75 mg 7-16 tablet by ity of tablet 00:00: mouth in [place] the Medical morning. Branch clopidogreL 2023-0 Yes 75mg Take 1 Univ ers 75 mg 7-16 tablet by ity of tablet 00:00: mouth in [place] the Medical morning. Branch clopidogreL 2023-0 Yes 75mg Take 1 Univ ers 75 mg 7-16 tablet by ity of tablet 00:00: mouth in [place] the Medical morning. Branch clopidogreL 2023-0 Yes 75mg Take 1 [facility] ers 75 mg 7-16 tablet by ity of tablet 00:00: mouth in [place] the Medical morning. Branch clopidogreL 2023-0 Yes 75mg Take 1 [facility] ers 75 mg 7-16 tablet by ity of tablet 00:00: mouth in [place] the Medical morning. Branch clopidogreL 2023-0 Yes 75mg Take 1 [facility] ers 75 mg 7-16 tablet by ity of tablet 00:00: mouth in [place] the Medical morning. Branch clopidogreL 2023-0 Yes 75mg Take 1 [facility] ers 75 mg 7-16 tablet by ity of tablet 00:00: mouth in [place] the Medical morning. Branch clopidogreL 2023-0 Yes 75mg Take 1 [facility] ers 75 mg 7-16 tablet by ity of tablet 00:00: mouth in [place] the Medical morning. Branch rosuvastati 2023-0 2024- Yes 20mg QD Take [address] [facility] (CRESTOR) 7-15 07-14 tablet (20 [facility] 20 MG 00:00: 23:59 mg total) Medica l tablet 00 :00 by mouth Center daily. rosuvastati 2023-0 2024- Yes 20mg QD Take [address] [facility] (CRESTOR) 7-15 07-14 tablet (20 [facility] 20 MG 00:00: 23:59 mg total) Medica l tablet 00 :00 by mouth Center daily. rosuvastati 2023-0 Yes 20mg Take 1 Univ ers n 20 mg 7-14 tablet by ity of tablet 00:00: mouth at [place] [address] bedtime. Medical Branch rosuvastati 2023-0 Yes 20mg Take 1 Univ ers n 20 mg 7-14 tablet by ity of tablet 00:00: mouth at [place] [address] bedtime. Medical Branch rosuvastati 2023-0 Yes 20mg Take 1 Univ ers n 20 mg 7-14 tablet by ity of tablet 00:00: mouth at [place] [address] bedtime. Medical Branch rosuvastati 2023-0 Yes 20mg Take 1 Univ ers n 20 mg 7-14 tablet by ity of tablet 00:00: mouth at [place] bedtime. Medical Branch rosuvastati 2023-0 Yes 20mg Take 1 Univ ers n 20 mg 7-14 tablet by ity of tablet 00:00: mouth at [place] bedtime. Medical Branch rosuvastati 2023-0 Yes 20mg Take 1 Univ ers n 20 mg 7-14 tablet by ity of tablet 00:00: mouth at [place] bedtime. Medical Branch rosuvastati 2023-0 Yes 20mg Take 1 [facility] ers n 20 mg 7-14 tablet by ity of tablet 00:00: mouth at [place] [address] bedtime. Medical Branch rosuvastati 2023-0 Yes 20mg Take 1 [facility] ers n 20 mg 7-14 tablet by ity of tablet 00:00: mouth at [place] [address] bedtime. Medical Branch rosuvastati 3-0 Yes 20mg Take 1 [facility] ers n 20 mg 7-14 tablet by ity of tablet 00:00: mouth at [place] bedtime. Medical Branch rosuvastati 2023-0 Yes 20mg Take 1 [facility] ers n 20 mg 7-14 tablet by ity of tablet 00:00: mouth at [place] [address] bedtime. Medical Branch rosuvastati 2023-0 Yes 20mg Take 1 [facility] ers n 20 mg 7-14 tablet by ity of tablet 00:00: mouth at [place] [address] bedtime. Medical Branch rosuvastati 2023-0 Yes 20mg Take 1 [facility] ers n 20 mg 7-14 tablet by ity of tablet 00:00: mouth at [place] [address] bedtime. Medical Branch rosuvastati 2023-0 Yes 20mg Take 1 [facility] ers n 20 mg 7-14 tablet by ity of tablet 00:00: mouth at [place] [address] bedtime. Medical Branch rosuvastati 2023-0 Yes 20mg Take 1 [facility] ers n 20 mg 7-14 tablet by ity of tablet 00:00: mouth at [place] [address] bedtime. Medical Branch rosuvastati 2023-0 Yes 20mg Take 1 [facility] ers n 20 mg 7-14 tablet by ity of tablet 00:00: mouth at [place] [address] bedtime. Medical Branch rosuvastati 3-0 Yes 20mg Take 1 [facility] ers n 20 mg 7-14 tablet by ity of tablet 00:00: mouth at [place] [address] bedtime. Medical Branch rosuvastati 2022-0 Yes 20mg Take 1 [facility] ers n 20 mg 7-14 tablet by ity of tablet 00:00: mouth at [place] [address] bedtime. Medical Branch rosuvastati 3-0 Yes 20mg Take 1 [facility] ers n 20 mg 7-14 tablet by ity of tablet 00:00: mouth at [place] [address] bedtime. Medical Branch rosuvastati 2022-0 Yes 20mg Take 1 [facility] ers n 20 mg 7-14 tablet by ity of tablet 00:00: mouth at [place] [address] bedtime. Medical Branch rosuvastati 2022-0 Yes 20mg Take 1 [facility] ers n 20 mg 7-14 tablet by ity of tablet 00:00: mouth at [place] [address] bedtime. Medical Branch HYDROcodone 2022-0 Yes TAKE [...] PAIN MAX 2/DAY losartan 50 2022-0 Yes [id number] 50mg Take 1 [facility] mg tablet 7-03 tablet by ity o f 00:00: mouth in [place] the Medical morning. Branch losartan 50 2022-0 Yes [id number] 50mg Take 1 [facility] mg tablet 7-03 tablet by ity o f 00:00: mouth in [place] the Medical morning. Branch MONTELUKAST 2022-0 Yes [id number] TAKE 1 [facility] 10 mg 7-03 TABLET BY ity of tablet 00:00: MOUTH IN [place] THE Medical MORNING Branch losartan 50 2022-0 Yes [id number] 50mg Take 1 [facility] mg tablet 7-03 tablet by ity o f 00:00: mouth in [place] 00 the Medical morning. Branch MONTELUKAST 2022-0 Yes [id number] TAKE 1 [facility] 10 mg 7-03 TABLET BY ity of tablet 00:00: MOUTH IN [place] 00 THE Medical MORNING Branch losartan 50 2022-0 Yes [id number] 50mg Take 1 [facility] mg tablet 7-03 tablet by ity o f 00:00: mouth in [place] 00 the Medical morning. Branch MONTELUKAST 2022-0 Yes [id number] TAKE 1 [facility] 10 mg 7-03 TABLET BY ity of tablet 00:00: MOUTH IN [place] 00 THE Medical MORNING Branch losartan 50 2022-0 Yes [id number] 50mg Take 1 [facility] mg tablet 7-03 tablet by ity o f 00:00: mouth in [place] 00 the Medical morning. Branch MONTELUKAST 2022-0 Yes [id number] TAKE 1 [facility] 10 mg 7-03 TABLET BY ity of tablet 00:00: MOUTH IN [place] 00 THE Medical MORNING Branch losartan 50 2022-0 Yes [id number] 50mg Take 1 [facility] mg tablet 7-03 tablet by ity o f 00:00: mouth in [place] 00 the Medical morning. Branch MONTELUKAST 2022-0 Yes [id number] TAKE 1 [facility] 10 mg 7-03 TABLET BY ity of tablet 00:00: MOUTH IN [place] 00 THE Medical MORNING Branch losartan 50 2022-0 Yes [id number] 50mg Take 1 [facility] mg tablet 7-03 tablet by ity o f 00:00: mouth in [place] 00 the Medical morning. Branch MONTELUKAST 2022-0 Yes [id number] TAKE 1 [facility] 10 mg 7-03 TABLET BY ity of tablet 00:00: MOUTH IN [place] 00 THE Medical MORNING Branch losartan 50 2022-0 Yes [id number] 50mg Take 1 [facility] mg tablet 7-03 tablet by ity o f 00:00: mouth in [place] 00 the Medical morning. Branch MONTELUKAST 2022-0 Yes [id number] TAKE 1 [facility] 10 mg 7-03 TABLET BY ity of tablet 00:00: MOUTH IN [place] 00 THE Medical MORNING Branch losartan 50 2022-0 Yes [id number] 50mg Take 1 [facility] mg tablet 7-03 tablet by ity o f 00:00: mouth in [place] 00 the Medical morning. Branch MONTELUKAST 2022-0 Yes [id number] TAKE 1 [facility] 10 mg 7-03 TABLET BY ity of tablet 00:00: MOUTH IN [place] 00 THE Medical MORNING Branch losartan 50 2022-0 Yes [id number] 50mg Take 1 [facility] mg tablet 7-03 tablet by ity o f 00:00: mouth in [place] 00 the Medical morning. Branch MONTELUKAST 2022-0 Yes [id number] TAKE 1 [facility] 10 mg 7-03 TABLET BY ity of tablet 00:00: MOUTH IN [place] 00 THE Medical MORNING Branch losartan 50 2022-0 Yes [id number] 50mg Take 1 [facility] mg tablet 7-03 tablet by ity o f 00:00: mouth in [place] 00 the Medical morning. Branch MONTELUKAST 2022-0 Yes [id number] TAKE 1 [facility] 10 mg 7-03 TABLET BY ity of tablet 00:00: MOUTH IN [place] 00 THE Medical MORNING Branch losartan 50 2022-0 Yes [id number] 50mg Take 1 [facility] mg tablet 7-03 tablet by ity o f 00:00: mouth in [place] 00 the Medical morning. Branch MONTELUKAST 2022-0 Yes [id number] TAKE 1 [facility] 10 mg 7-03 TABLET BY ity of tablet 00:00: MOUTH IN [place] 00 THE Medical MORNING Branch losartan 50 2022-0 Yes [id number] 50mg Take 1 [facility] mg tablet 7-03 tablet by ity o f 00:00: mouth in [place] 00 the Medical morning. Branch MONTELUKAST 2022-0 Yes [id number] TAKE 1 [facility] 10 mg 7-03 TABLET BY ity of tablet 00:00: MOUTH IN [place] 00 THE Medical MORNING Branch losartan 50 2022-0 Yes [id number] 50mg Take 1 [facility] mg tablet 7-03 tablet by ity o f 00:00: mouth in [place] 00 the Medical morning. Branch MONTELUKAST 2022-0 Yes [id number] TAKE 1 [facility] 10 mg 7-03 TABLET BY ity of tablet 00:00: MOUTH IN [place] 00 THE Medical MORNING Branch losartan 50 2022-0 Yes [id number] 50mg Take 1 [facility] mg tablet 7-03 tablet by ity o f 00:00: mouth in [place] 00 the Medical morning. Branch MONTELUKAST 2022-0 Yes [id number] TAKE 1 [facility] 10 mg 7-03 TABLET BY ity of tablet 00:00: MOUTH IN [place] 00 THE Medical MORNING Branch losartan 50 2022-0 Yes [id number] 50mg Take 1 [facility] mg tablet 7-03 tablet by ity o f 00:00: mouth in [place] 00 the Medical morning. Branch MONTELUKAST 2022-0 Yes [id number] TAKE 1 [facility] 10 mg 7-03 TABLET BY ity of tablet 00:00: MOUTH IN [place] 00 THE Medical MORNING Branch losartan 50 2022-0 Yes [id number] 50mg Take 1 [facility] mg tablet 7-03 tablet by ity o f 00:00: mouth in [place] 00 the Medical morning. Branch MONTELUKAST 2022-0 Yes [id number] TAKE 1 [facility] 10 mg 7-03 TABLET BY ity of tablet 00:00: MOUTH IN [place] 00 THE Medical MORNING Branch losartan 50 2022-0 Yes [id number] 50mg Take 1 [facility] mg tablet 7-03 tablet by ity o f 00:00: mouth in [place] 00 the Medical morning. Branch MONTELUKAST 2022-0 Yes [id number] TAKE 1 [facility] 10 mg 7-03 TABLET BY ity of tablet 00:00: MOUTH IN [place] 00 THE Medical MORNING Branch losartan 50 2022-0 Yes [id number] 50mg Take 1 [facility] mg tablet 7-03 tablet by ity o f 00:00: mouth in [place] 00 the Medical morning. Branch MONTELUKAST 2022-0 Yes [id number] TAKE 1 [facility] 10 mg 7-03 TABLET BY ity of tablet 00:00: MOUTH IN [place] 00 THE Medical MORNING Branch losartan 50 2022-0 Yes [id number] 50mg Take 1 [facility] mg tablet 7-03 tablet by ity o f 00:00: mouth in [place] 00 the Medical morning. Branch MONTELUKAST 2022-0 Yes [id number] TAKE 1 [facility] 10 mg 7-03 TABLET BY ity of tablet 00:00: MOUTH IN [place] 00 THE Medical MORNING Branch losartan 50 2022-0 Yes [id number] 50mg Take 1 [facility] mg tablet 7-03 tablet by ity o f 00:00: mouth in [place] 00 the Medical morning. Branch MONTELUKAST 2022-0 Yes [id number] TAKE 1 [facility] 10 mg 7-03 TABLET BY ity of tablet 00:00: MOUTH IN [place] 00 THE Medical MORNING Branch losartan 50 2022-0 Yes [id number] 50mg Take 1 [facility] mg tablet 7-03 tablet by ity o f 00:00: mouth in [place] 00 the Medical morning. Branch MONTELUKAST 2022-0 Yes [id number] TAKE 1 [facility] 10 mg 7-03 TABLET BY ity of tablet 00:00: MOUTH IN [place] 00 THE Medical MORNING Branch losartan 50 2022-0 Yes [id number] 50mg Take 1 [facility] mg tablet 7-03 tablet by ity o f 00:00: mouth in [place] 00 the Medical morning. Branch MONTELUKAST 2022-0 Yes [id number] TAKE 1 [facility] 10 mg 7-03 TABLET BY ity of tablet 00:00: MOUTH IN [place] 00 THE Medical MORNING Branch losartan 50 2022-0 Yes [id number] 50mg Take 1 [facility] mg tablet 7-03 tablet by ity o f 00:00: mouth in [place] 00 the Medical morning. Branch MONTELUKAST Yes [id number] TAKE 1 [facility] 10 mg 7-03 TABLET BY ity of tablet 00:00: MOUTH IN [place] 00 THE Medical MORNING Branch losartan 50 0 Yes [id number] 50mg Take 1 [facility] mg tablet 7-03 tablet by ity o f 00:00: mouth in [place] 00 the Medical morning. Branch MONTELUKAST Yes [id number] TAKE 1 [facility] 10 mg 7-03 TABLET BY ity of tablet 00:00: MOUTH IN [place] 00 THE Medical MORNING Branch losartan 50 0 Yes [id number] 50mg Take 1 [facility] mg tablet 7-03 tablet by ity o f 00:00: mouth in [place] 00 the Medical morning. Branch losartan 50 0 Yes [id number] 50mg Take 1 [facility] mg tablet 7-03 tablet by ity o f 00:00: mouth in [place] 00 the Medical morning. Branch MONTELUKAST 2022- No [id number] TAKE 1 [facility] 10 mg 7-03 08-10 TABLET BY ity of tablet 00:00: 00:00 MOUTH IN [place] 00 :00 THE Medical MORNING Branch MONTELUKAST 2022- No [id number] TAKE 1 [facility] 10 mg 7-03 08-10 TABLET BY ity of tablet 00:00: 00:00 MOUTH IN [place] 00 :00 THE Medical MORNING Branch ketorolac 2022- No 30mg 30 mg, Unive rs (TORADOL) 10-28 Slow IV ity of injection 23:30: 22:27 [place], [place] 30 mg 00 :00 ONCE, 1 Medical dose, On Branch 10/28/22 at 1830, GARY sulfamethox 2022- No 1{tbl} 1 tablet, [facility] azole-trime 10-28 Oral, ity of thoprim 22:30: 22:26 ONCE, 1 [place] (BACTRIM 00 :00 dose, On Medical DS) 800-160 Sun Branch mg per 10/28/22 at tablet 1 1730, tablet GARY
Re ason for Anti-Infec tive: Documented Infection< br>Documen carey Infection Site: Urine
D uration of Therapy: 10 days vancomycin 2022- No 1000mg 1,000 mg, [facility] (VANCOCIN) 10-28 IV ity of 1,000 mg in 21:30: 22:21 [place], [place] NaCl 0.9% 00 :00 ONCE, 1 Medical (NS) 250 mL dose, On Bran ch VIAL-MATE Sun IV 10/28/22 at piggyback 1630, Administer over 60 Minutes, 250 mL
Reas on for Anti-Infec tive: Documented Infection< br>Documen carey Infection Site: Urine<br&g t;Duration of Therapy: Other (see Comments) morpHINE (4 2022- No 4mg 4 mg, Slow [facility] mg/mL) 10-28 IV [place], ity of injection 4 19:00: 18:56 ONCE, 1 [place] mg 00 :00 dose, On [facility] 10/28/22 at 1400, STAT ondansetron 2022- No 4mg 4 mg, Slow [facility] (ZOFRAN 10-28 IV [place], ity of (PF)) 16:00: 15:57 ONCE, 1 [place] injection 4 00 :00 dose, On Medi lula mg [facility] 10/28/22 at 1100, GARY morpHINE (4 2022- No 4mg 4 mg, Slow [facility] mg/mL) 10-28 IV [place], ity of injection 4 16:00: 15:57 ONCE, 1 [place] mg 00 :00 dose, On [facility] 10/28/22 at 1100, STAT sulfamethox Yes 1{tbl} Take 1 [facility] azole-trime 6-18 tablet by ity of thoprim 00:00: mouth [place] 800-160 mg 00 every 12 Medic al per tablet (twelve) Branc h hours. gabapentin Yes 100mg Take 1 [facility] 100 mg 6-18 capsule by ity of capsule 00:00: mouth in [place] 00 the Medical morning Branch and 1 capsule at noon and 1 capsule in the evening. ketorolac 0 Yes 10mg Take 1 U n[facility] 10 mg 6-18 tablet by ity of tablet 00:00: mouth [place] 00 every 6 Medical (six) Branch hours as needed for Pain (scale 4-6). sulfamethox 2023-0 Yes [id number] 1{tbl} Take 1 [facility] azole-trime 6-18 tablet by ity of thoprim 00:00: mouth [place] 800-160 mg 00 every 12 Medic al per tablet (twelve) Branc h hours. gabapentin 2023-0 Yes [id number] 100mg Take 1 [facility] 100 mg 6-18 capsule by ity of capsule 00:00: mouth in [place] 00 the Medical morning Branch and 1 capsule at noon and 1 capsule in the evening. ketorolac 2023-0 Yes [id number] 10mg Take 1 U nivers 10 mg 6-18 tablet by ity of tablet 00:00: mouth [place] 00 every 6 Medical (six) Branch hours as needed for Pain (scale 4-6). sulfamethox 2023-0 Yes [id number] 1{tbl} Take 1 [facility] azole-trime 6-18 tablet by ity of thoprim 00:00: mouth [place] 800-160 mg 00 every 12 Medic al per tablet (twelve) Branc h hours. gabapentin 2023-0 Yes [id number] 100mg Take 1 [facility] 100 mg 6-18 capsule by ity of capsule 00:00: mouth in [place] 00 the Medical morning Branch and 1 capsule at noon and 1 capsule in the evening. ketorolac 202-0 Yes [id number] 10mg Take 1 U nivers 10 mg 6-18 tablet by ity of tablet 00:00: mouth [place] 00 every 6 Medical (six) Branch hours as needed for Pain (scale 4-6). sulfamethox 2023-0 Yes 1{tbl} Take 1 [facility] azole-trime 6-18 tablet by ity of thoprim 00:00: mouth [place] 800-160 mg 00 every 12 Medic al per tablet (twelve) Branc h hours. gabapentin 2023-0 Yes [id number] 100mg Take 1 [facility] 100 mg 6-18 capsule by ity of capsule 00:00: mouth in [place] 00 the Medical morning Branch and 1 capsule at noon and 1 capsule in the evening. ketorolac 2023-0 Yes [id number] 10mg Take 1 U nivers 10 mg 6-18 tablet by ity of tablet 00:00: mouth [place] 00 every 6 Medical (six) Branch hours as needed for Pain (scale 4-6). sulfamethox 2023-0 Yes [id number] 1{tbl} Take 1 [facility] azole-trime 6-18 tablet by ity of thoprim 00:00: mouth [place] 800-160 mg 00 every 12 Medic al per tablet (twelve) Branc h hours. gabapentin 2023-0 Yes [id number] 100mg Take 1 [facility] 100 mg 6-18 capsule by ity of capsule 00:00: mouth in [place] 00 the Medical morning Branch and 1 capsule at noon and 1 capsule in the evening. ketorolac 2023-0 Yes [id number] 10mg Take 1 U nivers 10 mg 6-18 tablet by ity of tablet 00:00: mouth [place] 00 every 6 Medical (six) Branch hours as needed for Pain (scale 4-6). sulfamethox 202-0 Yes [id number] 1{tbl} Take 1 [facility] azole-trime 6-18 tablet by ity of thoprim 00:00: mouth [place] 800-160 mg 00 every 12 Medic al per tablet (twelve) Branc h hours. gabapentin 2022-0 Yes [id number] 100mg Take 1 [facility] 100 mg 6-18 capsule by ity of capsule 00:00: mouth in [place] 00 the Medical morning Branch and 1 capsule at noon and 1 capsule in the evening. ketorolac 2022-0 Yes [id number] 10mg Take 1 U nivers 10 mg 6-18 tablet by ity of tablet 00:00: mouth [place] 00 every 6 Medical (six) Branch hours as needed for Pain (scale 4-6). sulfamethox 2022-0 Yes [id number] 1{tbl} Take 1 [facility] azole-trime 6-18 tablet by ity of thoprim 00:00: mouth [place] 800-160 mg 00 every 12 Medic al per tablet (twelve) Branc h hours. gabapentin 3-0 Yes [id number] 100mg Take 1 [facility] 100 mg 6-18 capsule by ity of capsule 00:00: mouth in [place] 00 the Medical morning Branch and 1 capsule at noon and 1 capsule in the evening. ketorolac 2023-0 Yes [id number] 10mg Take 1 U nivers 10 mg 6-18 tablet by ity of tablet 00:00: mouth [place] 00 every 6 Medical (six) Branch hours as needed for Pain (scale 4-6). gabapentin 2023-0 2023- No [id number] 100mg Take 1 [facility] 100 mg 6-18 07-19 capsule by ity of capsule 00:00: 00:00 mouth in [place] 00 :00 the [facility] morning Branch and 1 capsule at noon and 1 capsule in the evening. gabapentin 2023-0 2022- No [id number] 100mg Take 1 [facility] 100 mg 6-18 07-19 capsule by ity of capsule 00:00: 00:00 mouth in [place] 00 :00 the [facility] and 1 capsule at noon and 1 capsule in the evening. gabapentin 2023-0 2022- No [id number] 100mg Take 1 [facility] 100 mg 6-18 07-19 capsule by ity of capsule 00:00: 00:00 mouth in [place] 00 :00 the [facility] and 1 capsule at noon and 1 capsule in the evening. gabapentin 2023-0 2022- No [id number] 100mg Take 1 [facility] 100 mg 6-18 07-19 capsule by ity of capsule 00:00: 00:00 mouth in [place] 00 :00 [facility] and 1 capsule at noon and 1 capsule in the evening. ketorolac 3-0 2022- No [id number] 10mg Take 1 [facility] 10 mg 6-18 06-18 tablet by ity of tablet 00:00: 00:00 mouth [place] 00 :00 every 6 Medical (six) Branch hours as needed for Pain (scale 4-6). pregabalin 2023-0 Yes 75mg Take 1 Unive rs 75 mg 6-06 capsule by ity of capsule 00:00: mouth in [address] and 1 capsule at noon and 1 capsule in the evening. pregabalin 2023-0 Yes 75mg Take 1 Unive rs 75 mg 6-06 capsule by ity of capsule 00:00: mouth in [address] and 1 capsule at noon and 1 capsule in the evening. pregabalin 2023-0 Yes 75mg Take 1 Unive rs 75 mg 6-06 capsule by ity of capsule 00:00: mouth in [address] and 1 capsule at noon and 1 capsule in the evening. pregabalin 2023-0 Yes 75mg Take 1 Unive rs 75 mg 6-06 capsule by ity of capsule 00:00: mouth in [address] and 1 capsule at noon and 1 capsule in the evening. pregabalin 2023-0 Yes 75mg Take 1 Unive rs 75 mg 6-06 capsule by ity of capsule 00:00: mouth in [address] morning [place] and 1 capsule at noon and 1 capsule in the evening. pregabalin 2023-0 Yes 75mg Take 1 Unive rs 75 mg 6-06 capsule by ity of capsule 00:00: mouth in [address] morning [place] and 1 capsule at noon and 1 capsule in the evening. pregabalin 2023-0 Yes 75mg Take 1 Unive rs 75 mg 6-06 capsule by ity of capsule 00:00: mouth in [address] morning [place] and 1 capsule at noon and 1 capsule in the evening. pregabalin 2023-0 Yes 75mg Take 1 Unive rs 75 mg 6-06 capsule by ity of capsule 00:00: mouth in [address] and 1 capsule at noon and 1 capsule in the evening. pregabalin 2023-0 Yes 75mg Take 1 Unive rs 75 mg 6-06 capsule by ity of capsule 00:00: mouth in [address] and 1 capsule at noon and 1 capsule in the evening. pregabalin 2023-0 Yes 75mg Take 1 Unive rs 75 mg 6-06 capsule by ity of capsule 00:00: mouth in [address] and 1 capsule at noon and 1 capsule in the evening. pregabalin 2023-0 Yes 75mg Take 1 Unive rs 75 mg 6-06 capsule by ity of capsule 00:00: mouth in [address] and 1 capsule at noon and 1 capsule in the evening. pregabalin 2023-0 Yes 75mg Take 1 Unive rs 75 mg 6-06 capsule by ity of capsule 00:00: mouth in [address] morning [place] and 1 capsule at noon and 1 capsule in the evening. pregabalin 2023-0 Yes 75mg Take 1 Unive rs 75 mg 6-06 capsule by ity of capsule 00:00: mouth in [address] and 1 capsule at noon and 1 capsule in the evening. pregabalin 2023-0 Yes 75mg Take 1 Unive rs 75 mg 6-06 capsule by ity of capsule 00:00: mouth in [place] 00 the Medical morning Branch and 1 capsule at noon and 1 capsule in the evening. pregabalin 2023-0 Yes 75mg Take 1 Unive rs 75 mg 6-06 capsule by ity of capsule 00:00: mouth in [place] [address] the Medical morning Branch and 1 capsule at noon and 1 capsule in the evening. pregabalin 2023-0 Yes 75mg Take 1 Unive rs 75 mg 6-06 capsule by ity of capsule 00:00: mouth in [place] [address] the Medical morning Branch and 1 capsule at noon and 1 capsule in the evening. pregabalin 2023-0 Yes 75mg Take 1 Unive rs 75 mg 6-06 capsule by ity of capsule 00:00: mouth in [place] [address] the Medical morning Branch and 1 capsule at noon and 1 capsule in the evening. pregabalin 2023-0 Yes 75mg Take 1 Unive rs 75 mg 6-06 capsule by ity of capsule 00:00: mouth in [place] [address] the Medical morning Branch and 1 capsule at noon and 1 capsule in the evening. pregabalin 2023-0 Yes 75mg Take 1 Unive rs 75 mg 6-06 capsule by ity of capsule 00:00: mouth in [place] [address] the Medical morning Branch and 1 capsule at noon and 1 capsule in the evening. pregabalin 2023-0 Yes 75mg Take 1 Unive rs 75 mg 6-06 capsule by ity of capsule 00:00: mouth in [place] [address] the [facility] morning Branch and 1 capsule at noon and 1 capsule in the evening. omeprazole 2023-0 Yes [id number] 20mg Take 1 [facility] 20 mg 6-02 capsule by ity of capsule 00:00: mouth in [place] the morning. Branch MUST BE SEEN FOR FURTHER REFILLS omeprazole 2023-0 Yes [id number] 20mg Take 1 [facility] 20 mg 6-02 capsule by ity of capsule 00:00: mouth in [place] the morning. Branch MUST BE SEEN FOR FURTHER REFILLS montelukast 2023-0 Yes [id number] 10mg Take 1 [facility] 10 mg 6-02 tablet by ity of tablet 00:00: mouth in [place] the morning. Branch MUST BE SEEN FOR FURTHER REFILLS omeprazole 2023-0 Yes [id number] 20mg Take 1 [facility] 20 mg 6-02 capsule by ity of capsule 00:00: mouth in [place] the Medical morning. Branch MUST BE SEEN FOR FURTHER REFILLS montelukast 2022-0 Yes [id number] 10mg Take 1 [facility] 10 mg 6-02 tablet by ity of tablet 00:00: mouth in [place] the Medical morning. Branch MUST BE SEEN FOR FURTHER REFILLS omeprazole 2022-0 Yes [id number] 20mg Take 1 [facility] 20 mg 6-02 capsule by ity of capsule 00:00: mouth in [place] the Medical morning. Branch MUST BE SEEN FOR FURTHER REFILLS montelukast 2022-0 Yes [id number] 10mg Take 1 [facility] 10 mg 6-02 tablet by ity of tablet 00:00: mouth in [place] the Medical morning. Branch MUST BE SEEN FOR FURTHER REFILLS omeprazole 2022-0 Yes [id number] 20mg Take 1 [facility] 20 mg 6-02 capsule by ity of capsule 00:00: mouth in [place] the Medical morning. Branch MUST BE SEEN FOR FURTHER REFILLS montelukast 2022-0 Yes [id number] 10mg Take 1 [facility] 10 mg 6-02 tablet by ity of tablet 00:00: mouth in [place] the Medical morning. Branch MUST BE SEEN FOR FURTHER REFILLS omeprazole 2022-0 Yes [id number] 20mg Take 1 [facility] 20 mg 6-02 capsule by ity of capsule 00:00: mouth in [place] the Medical morning. Branch MUST BE SEEN FOR FURTHER REFILLS montelukast 2022-0 Yes [id number] 10mg Take 1 [facility] 10 mg 6-02 tablet by ity of tablet 00:00: mouth in [place] the Medical morning. Branch MUST BE SEEN FOR FURTHER REFILLS omeprazole 2022-0 Yes [id number] 20mg Take 1 [facility] 20 mg 6-02 capsule by ity of capsule 00:00: mouth in [place] the Medical morning. Branch MUST BE SEEN FOR FURTHER REFILLS omeprazole 2022-0 Yes [id number] 20mg Take 1 [facility] 20 mg 6-02 capsule by ity of capsule 00:00: mouth in [place] the Medical morning. Branch MUST BE SEEN FOR FURTHER REFILLS omeprazole 3-0 Yes [id number] 20mg Take 1 [facility] 20 mg 6-02 capsule by ity of capsule 00:00: mouth in [place] 00 the Medical morning. Branch MUST BE SEEN FOR FURTHER REFILLS omeprazole 3-0 Yes [id number] 20mg Take 1 [facility] 20 mg 6-02 capsule by ity of capsule 00:00: mouth in [place] 00 the Medical morning. Branch MUST BE SEEN FOR FURTHER REFILLS omeprazole 2022-0 Yes [id number] 20mg Take 1 [facility] 20 mg 6-02 capsule by ity of capsule 00:00: mouth in [place] 00 the Medical morning. Branch MUST BE SEEN FOR FURTHER REFILLS omeprazole 2022-0 2022- No [id number] 20mg Take 1 [facility] 20 mg 6-02 -19 capsule by ity of capsule 00:00: 00:00 mouth in [place] 00 :00 the Medical morning. Branch MUST BE SEEN FOR FURTHER REFILLS omeprazole 2022-0 2022- No [id number] 20mg Take 1 [facility] 20 mg 6-02 - capsule by ity of capsule 00:00: 00:00 mouth in [place] 00 :00 the Medical morning. Branch MUST BE SEEN FOR FURTHER REFILLS omeprazole 2022-0 2022- No [id number] 20mg Take 1 [facility] 20 mg 6-02 - capsule by ity of capsule 00:00: 00:00 mouth in [place] 00 :00 the Medical morning. Branch MUST BE SEEN FOR FURTHER REFILLS omeprazole 2022-0 2022- No [id number] 20mg Take 1 [facility] 20 mg 6-02 - capsule by ity of capsule 00:00: 00:00 mouth in [place] 00 :00 the Medical morning. Branch MUST BE SEEN FOR FURTHER REFILLS montelukast 2022-0 2022- No [id number] 10mg Take 1 [facility] 10 mg 6-06 19-03 tablet by ity of tablet 00:00: 00:00 mouth in [place] 00 :00 the Medical morning. Branch MUST BE SEEN FOR FURTHER REFILLS metFORMIN 2022-0 Yes [id number] 1000mg Take 1 [facility] 1,000 mg 4-26 tablet by ity of tablet 00:00: mouth in [place] the morning Branch and 1 tablet in the evening. Take with meals. MUST BE SEEN FOR FURTHER REFILLS metFORMIN 2022-0 Yes [id number] 1000mg Take 1 [facility] 1,000 mg 4-26 tablet by ity of tablet 00:00: mouth in [place] the morning Branch and 1 tablet in the evening. Take with meals. MUST BE SEEN FOR FURTHER REFILLS metFORMIN 2022-0 Yes [id number] 1000mg Take 1 [facility] 1,000 mg 4-26 tablet by ity of tablet 00:00: mouth in [address] and 1 tablet in the evening. Take with meals. MUST BE SEEN FOR FURTHER REFILLS metFORMIN 2023-0 Yes [id number] 1000mg Take 1 [facility] 1,000 mg 4-26 tablet by ity of tablet 00:00: mouth in [address] and 1 tablet in the evening. Take with meals. MUST BE SEEN FOR FURTHER REFILLS metFORMIN 2023-0 Yes [id number] 1000mg Take 1 [facility] 1,000 mg 4-26 tablet by ity of tablet 00:00: mouth in [address] and 1 tablet in the evening. Take with meals. MUST BE SEEN FOR FURTHER REFILLS metFORMIN 2023-0 Yes [id number] 1000mg Take 1 [facility] 1,000 mg 4-26 tablet by ity of tablet 00:00: mouth in [address] and 1 tablet in the evening. Take with meals. MUST BE SEEN FOR FURTHER REFILLS metFORMIN 2023-0 Yes [id number] 1000mg Take 1 [facility] 1,000 mg 4-26 tablet by ity of tablet 00:00: mouth in [address] and 1 tablet in the evening. Take with meals. MUST BE SEEN FOR FURTHER REFILLS metFORMIN 2023-0 Yes [id number] 1000mg Take 1 [facility] 1,000 mg 4-26 tablet by ity of tablet 00:00: mouth in [address] and 1 tablet in the evening. Take with meals. MUST BE SEEN FOR FURTHER REFILLS metFORMIN 2023-0 Yes [id number] 1000mg Take 1 [facility] 1,000 mg 4-26 tablet by ity of tablet 00:00: mouth in [address] and 1 tablet in the evening. Take with meals. MUST BE SEEN FOR FURTHER REFILLS metFORMIN 2023-0 Yes [id number] 1000mg Take 1 [facility] 1,000 mg 4-26 tablet by ity of tablet 00:00: mouth in [address] and 1 tablet in the evening. Take with meals. MUST BE SEEN FOR FURTHER REFILLS metFORMIN 2023-0 Yes [id number] 1000mg Take 1 [facility] 1,000 mg 4-26 tablet by ity of tablet 00:00: mouth in [address] and 1 tablet in the evening. Take with meals. MUST BE SEEN FOR FURTHER REFILLS metFORMIN 2023-0 Yes [id number] 1000mg Take 1 [facility] 1,000 mg 4-26 tablet by ity of tablet 00:00: mouth in [address] and 1 tablet in the evening. Take with meals. MUST BE SEEN FOR FURTHER REFILLS metFORMIN 2022-0 Yes [id number] 1000mg Take 1 [facility] 1,000 mg 4-26 tablet by ity of tablet 00:00: mouth in [address] and 1 tablet in the evening. Take with meals. MUST BE SEEN FOR FURTHER REFILLS metFORMIN 2022-0 Yes [id number] 1000mg Take 1 [facility] 1,000 mg 4-26 tablet by ity of tablet 00:00: mouth in [address] and 1 tablet in the evening. Take with meals. MUST BE SEEN FOR FURTHER REFILLS metFORMIN 2022-0 2022- No [id number] 1000mg Take 1 [facility] 1,000 mg 4-26 07-19 tablet by ity o f tablet 00:00: 00:00 mouth in [place] 00 :00 [facility] and 1 tablet in the evening. Take with meals. MUST BE SEEN FOR FURTHER REFILLS metFORMIN 2022-0 2022- No [id number] 1000mg Take 1 [facility] 1,000 mg 4-26 07-19 tablet by ity o f tablet 00:00: 00:00 mouth in [place] 00 :00 [facility] and 1 tablet in the evening. Take with meals. MUST BE SEEN FOR FURTHER REFILLS metFORMIN 2022-0 2022- No [id number] 1000mg Take 1 [facility] 1,000 mg 4-26 07-19 tablet by ity o f tablet 00:00: 00:00 mouth in [place] 00 :00 [facility] and 1 tablet in the evening. Take with meals. MUST BE SEEN FOR FURTHER REFILLS metFORMIN 2022-0 2022- No [id number] 1000mg Take 1 [facility] 1,000 mg 4-26 07-19 tablet by ity o f tablet 00:00: 00:00 mouth in [place] 00 :00 [facility] and 1 tablet in the evening. Take with meals. MUST BE SEEN FOR FURTHER REFILLS fluticasone 2022-0 Yes [id number] 1{spray Use 1 [facility] propionate 4-21 } [place] in ity o f 50 00:00: each [place] mcg/actuati 00 nostril in Ri dical on nasal the Branch spray morning and 1 [place] in the evening. fluticasone 2022-0 Yes [id number] 1{spray Use 1 [facility] propionate 4-21 } [place] in ity o f 50 00:00: each [place] mcg/actuati 00 nostril in Me dical on nasal the Branch spray morning and 1 [place] in the evening. fluticasone 2022-0 Yes [id number] 1{spray Use 1 [facility] propionate 4-21 } [place] in ity o f 50 00:00: each [place] mcg/actuati 00 nostril in Me dical on nasal the Branch spray morning and 1 [place] in the evening. fluticasone 2022-0 Yes [id number] 1{spray Use 1 [facility] propionate 4-21 } [place] in ity o f 50 00:00: each [place] mcg/actuati 00 nostril in Me dical on nasal the Branch spray morning and 1 [place] in the evening. fluticasone 2022-0 Yes [id number] 1{spray Use 1 [facility] propionate 4-21 } [place] in ity o f 50 00:00: each [place] mcg/actuati 00 nostril in Me dical on nasal the Branch spray morning and 1 [place] in the evening. fluticasone 2022-0 Yes [id number] 1{spray Use 1 [facility] propionate 4-21 } [place] in ity o f 50 00:00: each [place] mcg/actuati 00 nostril in Me dical on nasal the Branch spray morning and 1 [place] in the evening. fluticasone 2022-0 Yes [id number] 1{spray Use 1 [facility] propionate 4-21 } [place] in ity o f 50 00:00: each [place] mcg/actuati 00 nostril in Me dical on nasal the Branch spray morning and 1 [place] in the evening. fluticasone 2022-0 Yes [id number] 1{spray Use 1 [facility] propionate 4-21 } [place] in ity o f 50 00:00: each [place] mcg/actuati 00 nostril in Me dical on nasal the Branch spray morning and 1 [place] in the evening. fluticasone 2022-0 Yes [id number] 1{spray Use 1 [facility] propionate 4-21 } [place] in ity o f 50 00:00: each [place] mcg/actuati 00 nostril in Me dical on nasal the Branch spray morning and 1 [place] in the evening. fluticasone 0 Yes [id number] 1{spray Use 1 [facility] propionate 4-21 } [place] in ity o f 50 00:00: each [place] mcg/actuati 00 nostril in Me dical on nasal the Branch spray morning and 1 [place] in the evening. fluticasone 0 Yes [id number] 1{spray Use 1 [facility] propionate 4-21 } [place] in ity o f 50 00:00: each [place] mcg/actuati 00 nostril in Me dical on nasal the Branch spray morning and 1 [place] in the evening. fluticasone 0 Yes [id number] 1{spray Use 1 [facility] propionate 4-21 } [place] in ity o f 50 00:00: each [place] mcg/actuati 00 nostril in Me dical on nasal the Branch spray morning and 1 [place] in the evening. fluticasone 0 Yes [id number] 1{spray Use 1 [facility] propionate 4-21 } [place] in ity o f 50 00:00: each [place] mcg/actuati 00 nostril in Me dical on nasal the Branch spray morning and 1 [place] in the evening. fluticasone 0 Yes [id number] 1{spray Use 1 [facility] propionate 4-21 } [place] in ity o f 50 00:00: each [place] mcg/actuati 00 nostril in Me dical on nasal the Branch spray morning and 1 [place] in the evening. fluticasone 0 Yes [id number] 1{spray Use 1 [facility] propionate 4-21 } [place] in ity o f 50 00:00: each [place] mcg/actuati 00 nostril in Me dical on nasal the Branch spray morning and 1 [place] in the evening. fluticasone 0 Yes [id number] 1{spray Use 1 [facility] propionate 4-21 } [place] in ity o f 50 00:00: each [place] mcg/actuati 00 nostril in Me dical on nasal the Branch spray morning and 1 [place] in the evening. fluticasone 0 Yes [id number] 1{spray Use 1 [facility] propionate 4-21 } [place] in ity o f 50 00:00: each [place] mcg/actuati 00 nostril in Me dical on nasal the Branch spray morning and 1 [place] in the evening. fluticasone 0 Yes [id number] 1{spray Use 1 [facility] propionate 4-21 } [place] in ity o f 50 00:00: each [place] mcg/actuati 00 nostril in Me dical on nasal the Branch spray morning and 1 [place] in the evening. fluticasone 0 Yes [id number] 1{spray Use 1 [facility] propionate 4-21 } [place] in ity o f 50 00:00: each [place] mcg/actuati 00 nostril in Me dical on nasal the Branch spray morning and 1 [place] in the evening. fluticasone 0 Yes [id number] 1{spray Use 1 [facility] propionate 4-21 } [place] in ity o f 50 00:00: each [place] mcg/actuati 00 nostril in Me dical on nasal the Branch spray morning and 1 [place] in the evening. fluticasone 0 Yes [id number] 1{spray Use 1 [facility] propionate 4-21 } [place] in ity o f 50 00:00: each [place] mcg/actuati 00 nostril in Me dical on nasal the Branch spray morning and 1 [place] in the evening. fluticasone 0 Yes [id number] 1{spray Use 1 [facility] propionate 4-21 } [place] in ity o f 50 00:00: each [place] mcg/actuati 00 nostril in Me dical on nasal the Branch spray morning and 1 [place] in the evening. fluticasone 0 Yes [id number] 1{spray Use 1 [facility] propionate 4-21 } [place] in ity o f 50 00:00: each [place] mcg/actuati 00 nostril in Me dical on nasal the Branch spray morning and 1 [place] in the evening. fluticasone 0 Yes [id number] 1{spray Use 1 [facility] propionate 4-21 } [place] in ity o f 50 00:00: each [place] mcg/actuati 00 nostril in Me dical on nasal the Branch spray morning and 1 [place] in the evening. fluticasone 0 Yes [id number] 1{spray Use 1 [facility] propionate 4-21 } [place] in ity o f 50 00:00: each [place] mcg/actuati 00 nostril in Me dical on nasal the Branch spray morning and 1 [place] in the evening. fluticasone Yes [id number] 1{spray Use 1 [facility] propionate 4-21 } [place] in ity o f 50 00:00: each [place] mcg/actuati 00 nostril in Me dical on nasal the Branch spray morning and 1 [place] in the evening. fluticasone Yes [id number] 1{spray Use 1 [facility] propionate 4-21 } [place] in ity o f 50 00:00: each [place] mcg/actuati 00 nostril in Me dical on nasal the Branch spray morning and 1 [place] in the evening. fluticasone Yes [id number] 1{spray Use 1 [facility] propionate 4-21 } [place] in ity o f 50 00:00: each [place] mcg/actuati 00 nostril in Me dical on nasal the Branch spray morning and 1 [place] in the evening. fluticasone Yes [id number] 1{spray Use 1 [facility] propionate 4-21 } [place] in ity o f 50 00:00: each [place] mcg/actuati 00 nostril in Me dical on nasal the Branch spray morning and 1 [place] in the evening. fluticasone Yes [id number] 1{spray Use 1 [facility] propionate 4-21 } [place] in ity o f 50 00:00: each [place] mcg/actuati 00 nostril in Me dical on nasal the Branch spray morning and 1 [place] in the evening. fluticasone Yes [id number] 1{spray Use 1 [facility] propionate 4-21 } [place] in ity o f 50 00:00: each [place] mcg/actuati 00 nostril in Me dical on nasal the Branch spray morning and 1 [place] in the evening. fluticasone 0 Yes [id number] 1{spray Use 1 [facility] propionate 4-21 } [place] in ity o f 50 00:00: each [place] mcg/actuati 00 nostril in Me dical on nasal the Branch spray morning and 1 [place] in the evening. fluticasone 0 Yes [id number] 1{spray Use 1 [facility] propionate 4-21 } [place] in ity o f 50 00:00: each [place] mcg/actuati 00 nostril in Me dical on nasal the Branch spray morning and 1 [place] in the evening. fluticasone 2023-0 Yes [id number] 1{spray Use 1 [facility] propionate 4-21 } [place] in ity o f 50 00:00: each [place] mcg/actuati 00 nostril in Me dical on nasal the Branch spray morning and 1 [place] in the evening. fluticasone 0 Yes [id number] 1{spray Use 1 [facility] propionate 4-21 } [place] in ity o f 50 00:00: each [place] mcg/actuati 00 nostril in Me dical on nasal the Branch spray morning and 1 [place] in the evening. fluticasone 0 Yes [id number] 1{spray Use 1 [facility] propionate 4-21 } [place] in ity o f 50 00:00: each [place] mcg/actuati 00 nostril in Me dical on nasal the Branch spray morning and 1 [place] in the evening. fluticasone Yes [id number] 1{spray Use 1 [facility] propionate 4-21 } [place] in ity o f 50 00:00: each [place] mcg/actuati 00 nostril in Me dical on nasal the Branch spray morning and 1 [place] in the evening. fluticasone 0 Yes [id number] 1{spray Use 1 [facility] propionate 4-21 } [place] in ity o f 50 00:00: each [place] mcg/actuati 00 nostril in Me dical on nasal the Branch spray morning and 1 [place] in the evening. fluticasone 0 Yes [id number] 1{spray Use 1 [facility] propionate 4-21 } [place] in ity o f 50 00:00: each [place] mcg/actuati 00 nostril in Me dical on nasal the Branch spray morning and 1 [place] in the evening. fluticasone Yes [id number] 1{spray Use 1 [facility] propionate 4-21 } [place] in ity o f 50 00:00: each [place] mcg/actuati 00 nostril in Me dical on nasal the Branch spray morning and 1 [place] in the evening. fluticasone 0 Yes [id number] 1{spray Use 1 [facility] propionate 4-21 } [place] in ity o f 50 00:00: each [place] mcg/actuati 00 nostril in Me dical on nasal the Branch spray morning and 1 [place] in the evening. metoprolol 0 2022- No 25mg Take 25 mg [facility] tartrate 25 2-20 02-20 by mouth ity of mg tablet 09:42: 00:00 in the [place] 57 :00 morning Medical and 25 mg Branch in the evening. Patient takes half tablet twice daily metoprolol 2023-0 Yes [id number] 12.5mg Take 0.5 [facility] tartrate 25 2-20 tablets by it y of mg tablet 00:00: mouth [place] 00 the Medical morning Branch and 0.5 tablets in the evening. Patient takes half tablet twice daily losartan 50 3-0 Yes [id number] 50mg Take 1 [facility] mg tablet 2-20 tablet by ity o f 00:00: mouth in [place] 00 the Medical morning. Branch metoprolol 2023-0 Yes [id number] 12.5mg Take 0.5 [facility] tartrate 25 2-20 tablets by it y [facility] mg tablet 00:00[facility] Branch and 0.5 tablets in the evening. Patient takes half tablet twice daily losartan 50 2022-0 Yes [id number] 50mg Take 1 [facility] mg tablet 2-20 tablet by ity o f 00:00: mouth in [place] 00 the Medical morning. Branch metoprolol 3-0 Yes [id number] 12.5mg Take 0.5 [facility] tartrate 25 2-20 tablets by it y of mg tablet 00:00: [facility] Branch and 0.5 tablets in the evening. Patient takes half tablet twice daily losartan 50 3-0 Yes [id number] 50mg Take 1 [facility] mg tablet 2-20 tablet by ity o f 00:00: mouth in [place] 00 the Medical morning. Branch metoprolol 3-0 Yes [id number] 12.5mg Take 0.5 [facility] tartrate 25 2-20 tablets by it y of mg tablet 00:00: mouth [place] 00 the Medical morning Branch and 0.5 tablets in the evening. Patient takes half tablet twice daily losartan 50 3-0 Yes [id number] 50mg Take 1 [facility] mg tablet 2-20 tablet by ity o f 00:00: mouth in [place] 00 the Medical morning. Branch metoprolol 2023-0 Yes [id number] 12.5mg Take 0.5 [facility] tartrate 25 2-20 tablets by it y of mg tablet 00:00: mouth [place] 00 the Medical morning Branch and 0.5 tablets in the evening. Patient takes half tablet twice daily losartan 50 2023-0 Yes [id number] 50mg Take 1 [facility] mg tablet 2-20 tablet by ity o f 00:00: mouth in [place] the morning. Branch metoprolol 2023-0 Yes [id number] 12.5mg Take 0.5 [facility] tartrate 25 2-20 tablets by it y of mg tablet 00:00: mouth in the Medical morning Branch and 0.5 tablets in the evening. Patient takes half tablet twice daily losartan 50 2023-0 Yes [id number] 50mg Take 1 [facility] mg tablet 2-20 tablet by ity o f 00:00: mouth in [place] the Medical morning. Branch metoprolol 2023-0 Yes [id number] 12.5mg Take 0.5 [facility] tartrate 25 2-20 tablets by it y of mg tablet 00:00: mouth in the Medical morning Branch and 0.5 tablets in the evening. Patient takes half tablet twice daily losartan 50 2023-0 Yes [id number] 50mg Take 1 [facility] mg tablet 2-20 tablet by ity o f 00:00: mouth in [place] the morning. Branch metoprolol 2023-0 Yes [id number] 12.5mg Take 0.5 [facility] tartrate 25 2-20 tablets by it y of mg tablet 00:00: mouth in [facility] the morning Branch and 0.5 tablets in the evening. Patient takes half tablet twice daily losartan 50 2023-0 Yes [id number] 50mg Take 1 [facility] mg tablet 2-20 tablet by ity o f 00:00: mouth in [place] the morning. Branch metoprolol 2023-0 Yes [id number] 12.5mg Take 0.5 [facility] tartrate 25 2-20 tablets by it y of mg tablet 00:00: mouth in [place] the Medical morning Branch and 0.5 tablets in the evening. Patient takes half tablet twice daily losartan 50 2023-0 Yes [id number] 50mg Take 1 [facility] mg tablet 2-20 tablet by ity o f 00:00: mouth in [place] the Medical morning. Branch metoprolol 2023-0 Yes [id number] 12.5mg Take 0.5 [facility] tartrate 25 2-20 tablets by it y of mg tablet 00:00: mouth in [place] the Medical morning Branch and 0.5 tablets in the evening. Patient takes half tablet twice daily losartan 50 2023-0 Yes [id number] 50mg Take 1 [facility] mg tablet 2-20 tablet by ity o f 00:00: mouth in [place] the morning. Branch metoprolol 2023-0 Yes [id number] 12.5mg Take 0.5 [facility] tartrate 25 2-20 tablets by it y of mg tablet 00:00: mouth in the morning Branch and 0.5 tablets in the evening. Patient takes half tablet twice daily losartan 50 3-0 Yes [id number] 50mg Take 1 [facility] mg tablet 2-20 tablet by ity o f 00:00: mouth in [place] the morning. Branch metoprolol 2023-0 Yes [id number] 12.5mg Take 0.5 [facility] tartrate 25 2-20 tablets by it y of mg tablet 00:00: mouth in the Medical morning Branch and 0.5 tablets in the evening. Patient takes half tablet twice daily losartan 50 3-0 Yes [id number] 50mg Take 1 [facility] mg tablet 2-20 tablet by ity o f 00:00: mouth in [place] the morning. Branch metoprolol 2023-0 Yes [id number] 12.5mg Take 0.5 [facility] tartrate 25 2-20 tablets by it y of mg tablet 00:00: mouth in the morning Branch and 0.5 tablets in the evening. Patient takes half tablet twice daily losartan 50 3-0 Yes [id number] 50mg Take 1 [facility] mg tablet 2-20 tablet by ity o f 00:00: mouth in [place] the morning. Branch metoprolol 2023-0 Yes [id number] 12.5mg Take 0.5 [facility] tartrate 25 2-20 tablets by it y of mg tablet 00:00: mouth in [facility] the Medical morning Branch and 0.5 tablets in the evening. Patient takes half tablet twice daily losartan 50 2023-0 Yes [id number] 50mg Take 1 [facility] mg tablet 2-20 tablet by ity o f 00:00: mouth in [place] the Medical morning. Branch metoprolol 2023-0 Yes [id number] 12.5mg Take 0.5 [facility] tartrate 25 2-20 tablets by it y of mg tablet 00:00: [facility] the morning Branch and 0.5 tablets in the evening. Patient takes half tablet twice daily losartan 50 2023-0 Yes [id number] 50mg Take 1 [facility] mg tablet 2-20 tablet by ity o f 00:00: mouth in [place] the morning. Branch metoprolol 2023-0 Yes [id number] 12.5mg Take 0.5 [facility] tartrate 25 2-20 tablets by it y of mg tablet 00:00: mouth in [facility] the morning Branch and 0.5 tablets in the evening. Patient takes half tablet twice daily losartan 50 2023-0 Yes [id number] 50mg Take 1 [facility] mg tablet 2-20 tablet by ity o f 00:00: mouth in [place] the morning. Branch metoprolol 2023-0 Yes [id number] 12.5mg Take 0.5 [facility] tartrate 25 2-20 tablets by it y of mg tablet 00:00: mouth in [facility] the morning Branch and 0.5 tablets in the evening. Patient takes half tablet twice daily losartan 50 3-0 Yes [id number] 50mg Take 1 [facility] mg tablet 2-20 tablet by ity o f 00:00: mouth in [place] the morning. Branch metoprolol 2023-0 Yes [id number] 12.5mg Take 0.5 [facility] tartrate 25 2-20 tablets by it y of mg tablet 00:00: mouth in [place] [address] the morning Branch and 0.5 tablets in the evening. Patient takes half tablet twice daily losartan 50 2023-0 Yes [id number] 50mg Take 1 [facility] mg tablet 2-20 tablet by ity o f 00:00: mouth in [place] the morning. Branch metoprolol 2023-0 Yes [id number] 12.5mg Take 0.5 [facility] tartrate 25 2-20 tablets by it y of mg tablet 00:00: mouth in [facility] the morning Branch and 0.5 tablets in the evening. Patient takes half tablet twice daily losartan 50 2023-0 Yes [id number] 50mg Take 1 [facility] mg tablet 2-20 tablet by ity o f 00:00: mouth in [place] [address] the morning. Branch metoprolol 2023-0 Yes [id number] 12.5mg Take 0.5 [facility] tartrate 25 2-20 tablets by it y of mg tablet 00:00: mouth in [facility] the [facility] morning Branch and 0.5 tablets in the evening. Patient takes half tablet twice daily losartan 50 2023-0 Yes [id number] 50mg Take 1 [facility] mg tablet 2-20 tablet by ity o f 00:00: mouth in [place] [address] the morning. Branch metoprolol 2023-0 Yes [id number] 12.5mg Take 0.5 [facility] tartrate 25 2-20 tablets by it y of mg tablet 00:00: mouth in [facility] the [facility] morning Branch and 0.5 tablets in the evening. Patient takes half tablet twice daily losartan 50 2023-0 Yes [id number] 50mg Take 1 [facility] mg tablet 2-20 tablet by ity o f 00:00: mouth in [place] [address] the morning. Branch metoprolol 2023-0 Yes [id number] 12.5mg Take 0.5 [facility] tartrate 25 2-20 tablets by it y of mg tablet 00:00: mouth in [facility] the [facility] morning Branch and 0.5 tablets in the evening. Patient takes half tablet twice daily losartan 50 3-0 Yes [id number] 50mg Take 1 [facility] mg tablet 2-20 tablet by ity o f 00:00: mouth in [place] [address] the morning. Branch metoprolol 2023-0 Yes [id number] 12.5mg Take 0.5 [facility] tartrate 25 2-20 tablets by it y of mg tablet 00:00: mouth in [facility] the [facility] Branch and 0.5 tablets in the evening. Patient takes half tablet twice daily metoprolol 2023-0 Yes [id number] 12.5mg Take 0.5 [facility] tartrate 25 2-20 tablets by it y of mg tablet 00:00: mouth in [place] [address] the [facility] morning Branch and 0.5 tablets in the evening. Patient takes half tablet twice daily metoprolol 2023-0 Yes [id number] 12.5mg Take 0.5 [facility] tartrate 25 2-20 tablets by it y of mg tablet 00:00: mouth in [facility] the [facility] morning Branch and 0.5 tablets in the evening. Patient takes half tablet twice daily metoprolol 2023-0 Yes [id number] 12.5mg Take 0.5 [facility] tartrate 25 2-20 tablets by it y of mg tablet 00:00: mouth [place] 00 the Medical morning Branch and 0.5 tablets in the evening. Patient takes half tablet twice daily metoprolol Yes [id number] 12.5mg Take 0.5 [facility] tartrate 25 2-20 tablets by it y of mg tablet 00:00: mouth [place] 00 the Medical morning Branch and 0.5 tablets in the evening. Patient takes half tablet twice daily metoprolol Yes [id number] 12.5mg Take 0.5 [facility] tartrate 25 2-20 tablets by it y of mg tablet 00:00: mouth [place] 00 the Medical morning Branch and 0.5 tablets in the evening. Patient takes half tablet twice daily metoprolol 2022- No [id number] 12.5mg Take 0.5 [facility] tartrate 25 2-20 07-19 tablets by i ty of mg tablet 00:00: 00:00 mouth in [place] 00 :00 the Medical morning Branch and 0.5 tablets in the evening. Patient takes half tablet twice daily metoprolol 2022- No [id number] 12.5mg Take 0.5 [facility] tartrate 25 2-20 07-19 tablets by i ty of mg tablet 00:00: 00:00 mouth in [place] 00 :00 the Medical morning Branch and 0.5 tablets in the evening. Patient takes half tablet twice daily metoprolol 2022- No [id number] 12.5mg Take 0.5 [facility] tartrate 25 2-20 07-19 tablets by i ty of mg tablet 00:00: 00:00 mouth in [place] 00 :00 the Medical morning Branch and 0.5 tablets in the evening. Patient takes half tablet twice daily metoprolol 2022- No [id number] 12.5mg Take 0.5 [facility] tartrate 25 2-20 07-19 tablets by i ty of mg tablet 00:00: 00:00 mouth in [place] 00 :00 the Medical morning Branch and 0.5 tablets in the evening. Patient takes half tablet twice daily losartan 50 2022- No [id number] 50mg Take 1 [facility] mg tablet 2-20 - tablet by ity of 00:00: 00:00 mouth in [place] 00 :00 the Medical morning. Branch MONTELUKAST Yes [id number] 10mg TAKE 1 [facility] 10 mg 2-14 TABLET BY ity of tablet 00:00: MOUTH IN [place] 00 THE [facility] MORNING [place] MONTEKAST 0 Yes [id number] 10mg TAKE 1 [facility] 10 mg 2-14 TABLET BY ity of tablet 00:00: MOUTH IN [place] 00 THE [facility] MORNING [place] MONTEKAST Yes [id number] 10mg TAKE 1 [facility] 10 mg 2-14 TABLET BY ity of tablet 00:00: MOUTH IN [place] 00 THE [id number] 1 [facility] 10 mg 2-14 TABLET BY ity of tablet 00:00: MOUTH IN [place] 00 THE [facility] MORNING [place] MONTE[place]AST Yes [id number] 10mg TAKE 1 [facility] 10 mg 2-14 TABLET BY ity of tablet 00:00: [facility] [place] [id number] 1 [facility] 10 mg 2-14 TABLET BY ity of tablet 00:00: MOUTH IN [place] 00 THE [facility] Yes [id number] 10mg TAKE 1 [facility] 10 mg 2-14 TABLET BY ity of tablet 00:00: MOUTH IN [place] 00 THE [facility] Yes [id number] 10mg TAKE 1 [facility] 10 mg 2-14 TABLET BY ity of tablet 00:00: MOUTH IN [place] [facility] [id number] 10mg TAKE 1 [facility] 10 mg 2-14 TABLET BY ity of tablet 00:00: MOUTH [facility] [place] [facility] [id number] 10mg TAKE 1 [facility] 10 mg 2-14 TABLET BY ity of tablet 00:00: MOUTH IN [place] 00 THE [facility] MORNING [place] MONTEKAST 0 Yes [id number] 10mg TAKE 1 [facility] 10 mg 2-14 TABLET BY ity of tablet 00:00: MOUTH IN [place] [facility] [id number] 10mg TAKE 1 [facility] 10 mg 2-14 TABLET BY ity of tablet 00:00: MOUTH IN [place] 00 THE [facility] MONTEKA 2022-0 Yes [id number] 10mg TAKE 1 [facility] 10 mg 2-14 TABLET BY ity of tablet 00:00: MOUTH IN [place] 00 THE Medical MORNING Branch MONTELUKAST 2022-0 Yes [id number] 10mg TAKE 1 [facility] 10 mg 2-14 TABLET BY ity of tablet 00:00: MOUTH IN [place] 00 THE Medical MORNING Branch MONTELUKAST 2022-0 Yes [id number] 10mg TAKE 1 [facility] 10 mg 2-14 TABLET BY ity of tablet 00:00: MOUTH IN [place] 00 THE [facility] MORNING Branch MONTELUKAST 2022-0 Yes [id number] 10mg TAKE 1 [facility] 10 mg 2-14 TABLET BY ity of tablet 00:00: MOUTH IN [place] 00 THE [facility] MORNING Branch MONTEKAST 2022- Yes [id number] 10mg TAKE 1 [facility] 10 mg 2-14 TABLET BY ity of tablet 00:00: MOUTH IN [place] 00 THE [facility] MORNING Branch [facility] Yes [id number] 10mg TAKE 1 [facility] 10 mg 2-14 TABLET BY ity of tablet 00:00: MOUTH IN [place] 00 THE [facility] MORNING [facility] 2022-0 Yes [id number] 10mg TAKE 1 [facility] 10 mg 2-14 TABLET BY ity of tablet 00:00: MOUTH IN [place] 00 THE [facility] MORNING [place] [facility] 2022- No [id number] 10mg TAKE 1 [facility] 10 mg 2-14 - TABLET BY ity of tablet 00:00: 00:00 MOUTH IN [place] 00 :[address] [facility] Branch metFORMIN 2021- Yes [id number] 1000mg Take 1 [facility] 1,000 mg 2-12 tablet by ity of tablet 00:00: mouth in [place] 00 the [facility] morning Branch and 1 tablet in the evening. Take with meals. Omeprazole 2021- Yes [id number] 20mg Take 1 [facility] 20 mg 2-12 tablet by ity of tablet 00:00: mouth in [place] 00 the Medical morning. Branch metFORMIN 2021- Yes [id number] 1000mg Take 1 [facility] 1,000 mg 2-12 tablet by ity of tablet 00:00: mouth in [place] 00 the [facility] morning Branch and 1 tablet in the evening. Take with meals. Omeprazole 2021- Yes [id number] 20mg Take 1 [facility] 20 mg 2-12 tablet by ity of tablet 00:00: mouth in [place] 00 the Medical morning. Branch metFORMIN 2021- Yes [id number] 1000mg Take 1 [facility] 1,000 mg 2-12 tablet by ity of tablet 00:00: mouth in [place] the morning Branch and 1 tablet in the evening. Take with meals. Omeprazole 2021- Yes [id number] 20mg Take 1 [facility] 20 mg 2-12 tablet by ity of tablet 00:00: mouth in [place] the morning. Branch metFORMIN 2021- Yes [id number] 1000mg Take 1 [facility] 1,000 mg 2-12 tablet by ity of tablet 00:00: mouth in [place] [address] the morning Branch and 1 tablet in the evening. Take with meals. Omeprazole 2021- Yes [id number] 20mg Take 1 [facility] 20 mg 2-12 tablet by ity of tablet 00:00: mouth in [place] the . Branch metFORMIN 2021- Yes [id number] 1000mg Take 1 [facility] 1,000 mg 2-12 tablet by ity of tablet 00:00: mouth in [place] [address] the Branch and 1 tablet in the evening. Take with meals. Omeprazole 2021- Yes [id number] 20mg Take 1 [facility] 20 mg 2-12 tablet by ity of tablet 00:00: mouth in [place] the morning. Branch metFORMIN 2021- Yes [id number] 1000mg Take 1 [facility] 1,000 mg 2-12 tablet by ity of tablet 00:00: mouth in [place] [address] the [place] and 1 tablet in the evening. Take with meals. Omeprazole 2021- Yes [id number] 20mg Take 1 [facility] 20 mg 2-12 tablet by ity of tablet 00:00: mouth in [place] the . Branch metFORMIN 2021- Yes [id number] 1000mg Take 1 [facility] 1,000 mg 2-12 tablet by ity of tablet 00:00: mouth in [place] [address] the [facility] Branch and 1 tablet in the evening. Take with meals. Omeprazole 2021- Yes [id number] 20mg Take 1 [facility] 20 mg 2-12 tablet by ity of tablet 00:00: mouth in [place] the morning. Branch metFORMIN 2021- Yes [id number] 1000mg Take 1 [facility] 1,000 mg 2-12 tablet by ity of tablet 00:00: mouth in [place] [address] the morning Branch and 1 tablet in the evening. Take with meals. Omeprazole 2021-1 Yes [id number] 20mg Take 1 [facility] 20 mg 2-12 tablet by ity of tablet 00:00: mouth in [place] the morning. Branch metFORMIN 2021- Yes [id number] 1000mg Take 1 [facility] 1,000 mg 2-12 tablet by ity of tablet 00:00: mouth in [place] the morning Branch and 1 tablet in the evening. Take with meals. Omeprazole 2021- Yes [id number] 20mg Take 1 [facility] 20 mg 2-12 tablet by [facility] of tablet 00:00: mouth in [place] the morning. Branch metFORMIN 2021- Yes [id number] 1000mg Take 1 [facility] 1,000 mg 2-12 tablet by [facility] of tablet 00:00: mouth in [place] the morning Branch and 1 tablet in the evening. Take with meals. Omeprazole 2021- Yes [id number] 20mg Take 1 [facility] 20 mg 2-12 tablet by [facility] of tablet 00:00: mouth in [place] the morning. Branch metFORMIN 2021- Yes [id number] 1000mg Take 1 [facility] 1,000 mg 2-12 tablet by [facility]y of tablet 00:00: mouth in [place] [address] the Branch and 1 tablet in the evening. Take with meals. Omeprazole 2021-1 Yes [id number] 20mg Take 1 [facility] 20 mg 2-12 tablet by [facility] of tablet 00:00: mouth in [place] the morning. Branch metFORMIN 2021- Yes [id number] 1000mg Take 1 [facility] 1,000 mg 2-12 tablet by [facility]y of tablet 00:00: mouth in [place] [address] the Branch and 1 tablet in the evening. Take with meals. Omeprazole 2021-1 Yes [id number] 20mg Take 1 [facility] 20 mg 2-12 tablet by [facility] of tablet 00:00: mouth in [place] the morning. Branch metFORMIN 2021- Yes [id number] 1000mg Take 1 [facility] 1,000 mg 2-12 tablet by [facility]y of tablet 00:00: mouth in [place] [address] the morning Branch and 1 tablet in the evening. Take with meals. Omeprazole 2021-1 Yes [id number] 20mg Take 1 [facility] 20 mg 2-12 tablet by [facility]y of tablet 00:00: mouth in [place] the morning. Branch metFORMIN 2021- Yes [id number] 1000mg Take 1 [facility] 1,000 mg 2-12 tablet by [facility]y of tablet 00:00: mouth in [place] the Medical morning Branch and 1 tablet in the evening. Take with meals. Omeprazole 2021-1 Yes [id number] 20mg Take 1 [facility] 20 mg 2-12 tablet by [facility] of tablet 00:00: mouth in [place] the Medical morning. Branch metFORMIN 2021-1 Yes [id number] 1000mg Take 1 [facility] 1,000 mg 2-12 tablet by ity of tablet 00:00: mouth in [place] the morning Branch and 1 tablet in the evening. Take with meals. Omeprazole 2021-1 Yes [id number] 20mg Take 1 [facility] 20 mg 2-12 tablet by [facility] of tablet 00:00: mouth in [place] the Medical morning. Branch Omeprazole 2021-1 Yes [id number] 20mg Take 1 [facility] 20 mg 2-12 tablet by [facility] of tablet 00:00: mouth in [place] the Medical morning. Branch Omeprazole 2021-1 Yes [id number] 20mg Take 1 [facility] 20 mg 2-12 tablet by [facility] of tablet 00:00: mouth in [place] the morning. Branch Omeprazole 2021-1 Yes [id number] 20mg Take 1 [facility] 20 mg 2-12 tablet by [facility] of tablet 00:00: mouth in [place] the Medical morning. Branch Omeprazole 2021-1 Yes [id number] 20mg Take 1 [facility] 20 mg 2-12 tablet by [facility] of tablet 00:00: mouth in [place] the Medical morning. Branch Omeprazole 2021-1 Yes [id number] 20mg Take 1 [facility] 20 mg 2-12 tablet by [facility] of tablet 00:00: mouth in [place] the Medical morning. Branch Omeprazole 2021-1 Yes [id number] 20mg Take 1 [facility] 20 mg 2-12 tablet by [facility] of tablet 00:00: mouth in [place] the Medical morning. Branch Omeprazole 2021-1 Yes [id number] 20mg Take 1 [facility] 20 mg 2-12 tablet by [facility] of tablet 00:00: mouth in [place] the Medical morning. Branch Omeprazole 2021-1 Yes [id number] 20mg Take 1 [facility] 20 mg 2-12 tablet by [facility] of tablet 00:00: mouth in [place] the Medical morning. Branch Omeprazole 2021-1 Yes [id number] 20mg Take 1 [facility] 20 mg 2-12 tablet by [facility] of tablet 00:00: mouth in [place] 00 the Medical morning. Branch Omeprazole 2021-05 Yes [id number] 20mg Take 1 [facility] 20 mg 2-12 tablet by [facility] of tablet 00:00: mouth in [place] 00 the Medical morning. Branch Omeprazole 2021-05 Yes [id number] 20mg Take 1 [facility] 20 mg 2-12 tablet by [facility] of tablet 00:00: mouth in [place] the Medical morning. Branch Omeprazole 2021-05 Yes [id number] 20mg Take 1 [facility] 20 mg 2-12 tablet by [facility] of tablet 00:00: mouth in [place] 00 the Medical morning. Branch Omeprazole 2021-05 Yes [id number] 20mg Take 1 [facility] 20 mg 2-12 tablet by [facility] of tablet 00:00: mouth in [place] the Medical morning. Branch Omeprazole 2021-05 Yes [id number] 20mg Take 1 [facility] 20 mg 2-12 tablet by [facility] of tablet 00:00: mouth in [place] the Medical morning. Branch Omeprazole 2021-05 Yes [id number] 20mg Take 1 [facility] 20 mg 2-12 tablet by [facility] of tablet 00:00: mouth in [place] the Medical morning. Branch Omeprazole 2021-05 Yes [id number] 20mg Take 1 [facility] 20 mg 2-12 tablet by [facility] of tablet 00:00: mouth in [place] the Medical morning. Branch Omeprazole 2021-05 Yes [id number] 20mg Take 1 [facility] 20 mg 2-12 tablet by [facility] of tablet 00:00: mouth in [place] the Medical morning. Branch Omeprazole 2021-05 Yes [id number] 20mg Take 1 [facility] 20 mg 2-12 tablet by [facility] of tablet 00:00: mouth in [place] the Medical morning. Branch Omeprazole 2021-05 Yes [id number] 20mg Take 1 [facility] 20 mg 2-12 tablet by [facility] of tablet 00:00: mouth in [place] 00 the Medical morning. Branch metFORMIN 2021-05- No [id number] 1000mg Take 1 [facility] 1,000 mg 2-12 - tablet by ity o f tablet 00:00: 00:00 mouth in [place] 00 :00 the Medical morning Branch and [...] 5mg Take 1 [facility] (ELIQUIS) 5 -04 12-19 tablet by it y of mg tablet 00:00: 00:00 mouth in [place] 00 :00 the Medical morning Branch and 1 tablet in the evening. Indication s: atrial fibrillati on apixaban 2021-05- No 1358 5mg Take 1 [facility] (ELIQUIS) 5 -04 12-19 tablet by it y of mg tablet 00:00: 00:00 mouth in [place] 00 :00 the Medical morning Branch and 1 tablet in the evening. Indication s: atrial fibrillati on apixaban 2021-05- No 1358 5mg Take 1 [facility] (ELIQUIS) 5 -25 07-19 tablet by it y of mg tablet 00:00: 00:00 mouth in [place] 00 :00 the Medical morning Branch and 1 tablet in the evening. Indication s: atrial fibrillati on apixaban 2021-05- No 1358 5mg Take 1 [facility] (ELIQUIS) 5 -04 12-19 tablet by it y of mg tablet 00:00: 00:00 mouth in [place] 00 :00 the Medical morning Branch and 1 tablet in the evening. Indication s: atrial fibrillati on apixaban 2021-05 No 5mg QD Take [address] [facility] (ELIQUIS) 5 06-06-14 tablet (5 [facility] mg Tab 00:00: 00:00 mg total) Medic al tablet 00 :00 by mouth Center daily. apixaban 2021-05 No 5mg QD Take [address] [facility] (ELIQUIS) 5 06-06 07-14 tablet (5 [facility] mg Tab 00:00: 00:00 mg total) Medic al tablet 00 :00 by mouth Center daily. losartan 25 2021-05- No 25mg Take 25 mg [facility] mg tablet 06-03 by mouth ity o f 14:08: 00:00 daily. [place] 17 :00 [facility] losartan 25 2021-05- No 25mg Take 25 mg [facility] mg tablet 06-03 by mouth ity o f 14:08: 00:00 daily. [place] 17 :00 [facility] losartan 25 2021-05- No 25mg Take 25 mg [facility] mg tablet 06-03 by mouth ity o f 14:08: 00:00 daily. [place] 17 :00 [facility] losartan 25 2021-05- No 25mg Take 25 mg [facility] mg tablet 06-03 by mouth ity o f 14:08: 00:00 daily. [place] 17 :00 [facility] metoprolol 2021-05 Yes 25mg Take 25 mg [facility] nivers tartrate 25 1-22 by mouth ity of mg tablet 13:45: in the [place] [address] morning Medical and 25 mg Branch in the evening. Patient takes half tablet twice daily metoprolol 2021-05 Yes 25mg Take 25 mg [facility] tartrate 25 1-22 by mouth ity of mg tablet 13:45: in the [place] [address] morning Medical and 25 mg Branch in the evening. Patient takes half tablet twice daily metoprolol 2021-05 Yes 25mg Take 25 mg [facility] nivers tartrate 25 1-22 by mouth ity of mg tablet 13:45: in the [place] [address] morning Medical and 25 mg Branch in the evening. Patient takes half tablet twice daily metoprolol 2021-05 Yes 25mg Take 25 mg [facility] nivers tartrate 25 1-22 by mouth ity of mg tablet 13:45: in the [place] [address] morning Medical and 25 mg Branch in the evening. Patient takes half tablet twice daily metoprolol 2021-1 Yes 25mg Take 25 mg [facility] nivers tartrate 25 1-22 by mouth ity of mg tablet 13:45: in the [place] [address] morning Medical and 25 mg Branch in the evening. Patient takes half tablet twice daily metoprolol 2021-1 Yes 25mg Take 25 mg [facility] nivers tartrate 25 1-22 by mouth ity of mg tablet 13:45: in the [place] [address] morning Medical and 25 mg Branch in the evening. Patient takes half tablet twice daily metoprolol 2021-1 Yes 25mg Take 25 mg [facility] nivers tartrate 25 1-22 by mouth ity of mg tablet 13:45: in the [place] [address] morning Medical and 25 mg Branch in the evening. Patient takes half tablet twice daily metoprolol 2021-1 Yes 25mg Take 25 mg [facility] nivers tartrate 25 1-22 by mouth ity of mg tablet 13:45: in the [place] [address] morning Medical and 25 mg Branch in the evening. Patient takes half tablet twice daily metoprolol 2021-1 Yes 25mg Take 25 mg U nivers tartrate 25 1-22 by mouth ity of mg tablet 13:45: in the [place] [address] morning Medical and 25 mg Branch in the evening. Patient takes half tablet twice daily metoprolol 2021-1 Yes 25mg Take 25 mg U nivers tartrate 25 1-22 by mouth ity of mg tablet 13:45: in the [place] [address] morning Medical and 25 mg Branch in the evening. Patient takes half tablet twice daily metoprolol 2021-1 Yes 25mg Take 25 mg U nivers tartrate 25 1-22 by mouth ity of mg tablet 13:45: in the [place] [address] morning Medical and 25 mg Branch in the evening. Patient takes half tablet twice daily metoprolol 2-1 Yes 25mg Take 25 mg U nivers tartrate 25 1-22 by mouth ity of mg tablet 13:45: in the [place] [address] morning Medical and 25 mg Branch in the evening. Patient takes half tablet twice daily metoprolol 2-1 Yes 25mg Take 25 mg U nivers tartrate 25 1-22 by mouth ity of mg tablet 13:45: in the [place] [address] morning Medical and 25 mg Branch in the evening. Patient takes half tablet twice daily metoprolol 2022-1 Yes 25mg Take 25 mg U nivers tartrate 25 1-22 by mouth ity of mg tablet 13:45: in the [address] Medical and 25 mg Branch in the evening. Patient takes half tablet twice daily metoprolol 2021-05 Yes 25mg Take 25 mg U nivers tartrate 25 1-22 by mouth ity of mg tablet 13:45: in the [address] Medical and 25 mg Branch in the evening. Patient takes half tablet twice daily metoprolol 2021-05 Yes 25mg Take 25 mg U nivers tartrate 25 1-22 by mouth ity of mg tablet 13:45: in the [address] Medical and 25 mg Branch in the evening. Patient takes half tablet twice daily metoprolol 2021-05 Yes 25mg Take 25 mg U nivers tartrate 25 1-22 by mouth ity of mg tablet 13:45: in the [address] Medical and 25 mg Branch in the evening. Patient takes half tablet twice daily albuterol 2021-05 Yes [id number] 2{puff} Inhale 2 [facility] (PROAIR 1-22 Puffs ity of HFA) 90 00:00: every 6 [place] mcg/actuati 00 (six) Medical on inhaler hours as Branc h needed for Wheezing, Shortness of Breath or Chest tightness. losartan 2021-05 Yes [id number] 100mg Take 1 [facility] [place] 100 mg 1-22 tablet by ity of tablet 00:00: mouth in [place] the Medical morning. Branch losartan 2021-05 Yes [id number] 100mg Take 1 [facility] [place] 100 mg 1-22 tablet by ity of tablet 00:00: mouth in [place] the Medical morning. Branch albuterol 2021-05 Yes [id number] 2{puff} Inhale 2 [facility] (PROAIR 1-22 Puffs ity of HFA) 90 00:00: every 6 [place] mcg/actuati 00 (six) Medical on inhaler hours as Branc h needed for Wheezing, Shortness of Breath or Chest tightness. albuterol 2021-05 Yes [id number] 2{puff} Inhale 2 [facility] (PROAIR 1-22 Puffs ity of HFA) 90 00:00: every 6 [place] mcg/actuati 00 (six) Medical on inhaler hours as Branc h needed for Wheezing, Shortness of Breath or Chest tightness. losartan 2021-05 Yes [id number] 100mg Take 1 [facility] [place] 100 mg 1-22 tablet by ity of tablet 00:00: mouth in [place] 00 the Medical morning. Branch albuterol 2021-05 Yes [id number] 2{puff} Inhale 2 [facility] (PROAIR 1-22 Puffs ity of HFA) 90 00:00: every 6 [place] mcg/actuati 00 (six) Medical on inhaler hours as Branc h needed for Wheezing, Shortness of Breath or Chest tightness. losartan 2021-05 Yes [id number] 100mg Take 1 [facility] [place] 100 mg 1-22 tablet by ity of tablet 00:00: mouth in [place] 00 the Medical morning. Branch albuterol 2021-05 Yes [id number] 2{puff} Inhale 2 [facility] (PROAIR 1-22 Puffs ity of HFA) 90 00:00: every 6 [place] mcg/actuati 00 (six) Medical on inhaler hours as Branc h needed for Wheezing, Shortness of Breath or Chest tightness. losartan 2021-05 Yes [id number] 100mg Take 1 [facility] [place] 100 mg 1-22 tablet by ity of tablet 00:00: mouth in [place] 00 the Medical morning. Branch albuterol 2021-05 Yes [id number] 2{puff} Inhale 2 [facility] (PROAIR 1-22 Puffs ity of HFA) 90 00:00: every 6 [place] mcg/actuati 00 (six) Medical on inhaler hours as Branc h needed for Wheezing, Shortness of Breath or Chest tightness. losartan 2021-05 Yes [id number] 100mg Take 1 [facility] [place] 100 mg 1-22 tablet by ity of tablet 00:00: mouth in [place] 00 the Medical morning. Branch albuterol 2021-05 Yes [id number] 2{puff} Inhale 2 [facility] (PROAIR 1-22 Puffs ity of HFA) 90 00:00: every 6 [place] mcg/actuati 00 (six) Medical on inhaler hours as Branc h needed for Wheezing, Shortness of Breath or Chest tightness. losartan 2021-05 Yes [id number] 100mg Take 1 [facility] [place] 100 mg 1-22 tablet by ity of tablet 00:00: mouth in [place] 00 the Medical morning. Branch albuterol 2021-05 Yes [id number] 2{puff} Inhale 2 [facility] (PROAIR 1-22 Puffs ity of HFA) 90 00:00: every 6 [place] mcg/actuati 00 (six) Medical on inhaler hours as Branc h needed for Wheezing, Shortness of Breath or Chest tightness. losartan 2021-05 Yes [id number] 100mg Take 1 [facility] [place] 100 mg 1-22 tablet by ity of tablet 00:00: mouth in [place] 00 the Medical morning. Branch albuterol 2021-05 Yes [id number] 2{puff} Inhale 2 [facility] (PROAIR 1-22 Puffs ity of HFA) 90 00:00: every 6 [place] mcg/actuati 00 (six) Medical on inhaler hours as Branc h needed for Wheezing, Shortness of Breath or Chest tightness. losartan 2021-05 Yes [id number] 100mg Take 1 [facility] [place] 100 mg 1-22 tablet by ity of tablet 00:00: mouth in [place] 00 the Medical morning. Branch albuterol 2021-05 Yes [id number] 2{puff} Inhale 2 [facility] (PROAIR 1-22 Puffs ity of HFA) 90 00:00: every 6 [place] mcg/actuati 00 (six) Medical on inhaler hours as Branc h needed for Wheezing, Shortness of Breath or Chest tightness. losartan 2021-05 Yes [id number] 100mg Take 1 [facility] [place] 100 mg 1-22 tablet by ity of tablet 00:00: mouth in [place] 00 the Medical morning. Branch losartan 2021-05 Yes [id number] 100mg Take 1 [facility] [place] 100 mg 1-22 tablet by ity of tablet 00:00: mouth in [place] 00 the Medical morning. Branch albuterol 2021-05 Yes [id number] 2{puff} Inhale 2 [facility] (PROAIR 1-22 Puffs ity of HFA) 90 00:00: every 6 [place] mcg/actuati 00 (six) Medical on inhaler hours as Branc h needed for Wheezing, Shortness of Breath or Chest tightness. losartan 2021-05 Yes [id number] 100mg Take 1 [facility] [place] 100 mg 1-22 tablet by ity of tablet 00:00: mouth in [place] 00 the Medical morning. Branch albuterol 2021-05 Yes [id number] 2{puff} Inhale 2 [facility] (PROAIR 1-22 Puffs ity of HFA) 90 00:00: every 6 [place] mcg/actuati 00 (six) Medical on inhaler hours as Branc h needed for Wheezing, Shortness of Breath or Chest tightness. losartan 2021-05 Yes [id number] 100mg Take 1 [facility] [place] 100 mg 1-22 tablet by ity of tablet 00:00: mouth in [place] 00 the Medical morning. Branch albuterol 2021-05 Yes [id number] 2{puff} Inhale 2 [facility] (PROAIR 1-22 Puffs ity of HFA) 90 00:00: every 6 [place] mcg/actuati 00 (six) Medical on inhaler hours as Branc h needed for Wheezing, Shortness of Breath or Chest tightness. losartan 2021-05 Yes [id number] 100mg Take 1 [facility] [place] 100 mg 1-22 tablet by ity of tablet 00:00: mouth in [place] 00 the Medical morning. Branch albuterol 2021-05 Yes [id number] 2{puff} Inhale 2 [facility] (PROAIR 1-22 Puffs ity of HFA) 90 00:00: every 6 [place] mcg/actuati 00 (six) Medical on inhaler hours as Branc h needed for Wheezing, Shortness of Breath or Chest tightness. losartan 2021-05 Yes [id number] 100mg Take 1 [facility] [place] 100 mg 1-22 tablet by ity of tablet 00:00: mouth in [place] 00 the Medical morning. Branch albuterol 2021-05 Yes [id number] 2{puff} Inhale 2 [facility] (PROAIR 1-22 Puffs ity of HFA) 90 00:00: every 6 [place] mcg/actuati 00 (six) Medical on inhaler hours as Branc h needed for Wheezing, Shortness of Breath or Chest tightness. losartan 2021-05 Yes [id number] 100mg Take 1 [facility] [place] 100 mg 1-22 tablet by ity of tablet 00:00: mouth in [place] 00 the Medical morning. Branch albuterol 2021-05 Yes [id number] 2{puff} Inhale 2 [facility] (PROAIR 1-22 Puffs ity of HFA) 90 00:00: every 6 [place] mcg/actuati 00 (six) Medical on inhaler hours as Branc h needed for Wheezing, Shortness of Breath or Chest tightness. losartan 2021-05 Yes [id number] 100mg Take 1 [facility] [place] 100 mg 1-22 tablet by ity of tablet 00:00: mouth in [place] 00 the Medical morning. Branch albuterol 2021-05 Yes [id number] 2{puff} Inhale 2 [facility] (PROAIR 1-22 Puffs ity of HFA) 90 00:00: every 6 [place] mcg/actuati 00 (six) Medical on inhaler hours as Branc h needed for Wheezing, Shortness of Breath or Chest tightness. losartan 2021-05 Yes [id number] 100mg Take 1 [facility] [place] 100 mg 1-22 tablet by ity of tablet 00:00: mouth in [place] 00 the Medical morning. Branch albuterol 2021-05 Yes [id number] 2{puff} Inhale 2 [facility] (PROAIR 1-22 Puffs ity of HFA) 90 00:00: every 6 [place] mcg/actuati 00 (six) Medical on inhaler hours as Branc h needed for Wheezing, Shortness of Breath or Chest tightness. losartan 2021-05 Yes [id number] 100mg Take 1 [facility] [place] 100 mg 1-22 tablet by ity of tablet 00:00: mouth in [place] 00 the Medical morning. Branch albuterol 2021-05 Yes [id number] 2{puff} Inhale 2 [facility] (PROAIR 1-22 Puffs ity of HFA) 90 00:00: every 6 [place] mcg/actuati 00 (six) Medical on inhaler hours as Branc h needed for Wheezing, Shortness of Breath or Chest tightness. losartan 2021-05 Yes [id number] 100mg Take 1 [facility] [place] 100 mg 1-22 tablet by ity of tablet 00:00: mouth in [place] 00 the Medical morning. Branch albuterol 2021-05 Yes [id number] 2{puff} Inhale 2 [facility] (PROAIR 1-22 Puffs ity of HFA) 90 00:00: every 6 [place] mcg/actuati 00 (six) Medical on inhaler hours as Branc h needed for Wheezing, Shortness of Breath or Chest tightness. losartan 2021-05 Yes [id number] 100mg Take 1 [facility] [place] 100 mg 1-22 tablet by ity of tablet 00:00: mouth in [place] 00 the Medical morning. Branch albuterol 2021-05 Yes [id number] 2{puff} Inhale 2 [facility] (PROAIR 1-22 Puffs ity of HFA) 90 00:00: every 6 [place] mcg/actuati 00 (six) Medical on inhaler hours as Branc h needed for Wheezing, Shortness of Breath or Chest tightness. losartan 2021-05 Yes [id number] 100mg Take 1 [facility] [place] 100 mg 1-22 tablet by ity of tablet 00:00: mouth in [place] 00 the Medical morning. Branch albuterol 2021-05 Yes [id number] 2{puff} Inhale 2 [facility] (PROAIR 1-22 Puffs ity of HFA) 90 00:00: every 6 [place] mcg/actuati 00 (six) Medical on inhaler hours as Branc h needed for Wheezing, Shortness of Breath or Chest tightness. losartan 2021-05 Yes [id number] 100mg Take 1 [facility] [place] 100 mg 1-22 tablet by ity of tablet 00:00: mouth in [place] 00 the Medical morning. Branch albuterol 2021-05 Yes [id number] 2{puff} Inhale 2 [facility] (PROAIR 1-22 Puffs ity of HFA) 90 00:00: every 6 [place] mcg/actuati 00 (six) Medical on inhaler hours as Branc h needed for Wheezing, Shortness of Breath or Chest tightness. losartan 2021-05 Yes [id number] 100mg Take 1 [facility] [place] 100 mg 1-22 tablet by ity of tablet 00:00: mouth in [place] 00 the Medical morning. Branch albuterol 2021-05 Yes [id number] 2{puff} Inhale 2 [facility] (PROAIR 1-22 Puffs ity of HFA) 90 00:00: every 6 [place] mcg/actuati 00 (six) Medical on inhaler hours as Branc h needed for Wheezing, Shortness of Breath or Chest tightness. losartan 2021-05 Yes [id number] 100mg Take 1 [facility] [place] 100 mg 1-22 tablet by ity of tablet 00:00: mouth in [place] 00 the Medical morning. Branch albuterol 2021-05 Yes [id number] 2{puff} Inhale 2 [facility] (PROAIR 1-22 Puffs ity of HFA) 90 00:00: every 6 [place] mcg/actuati 00 (six) Medical on inhaler hours as Branc h needed for Wheezing, Shortness of Breath or Chest tightness. losartan 2021-05 Yes [id number] 100mg Take 1 [facility] [place] 100 mg 1-22 tablet by ity of tablet 00:00: mouth in [place] 00 the Medical morning. Branch albuterol 2021-05 Yes [id number] 2{puff} Inhale 2 [facility] (PROAIR 1-22 Puffs ity of HFA) 90 00:00: every 6 [place] mcg/actuati 00 (six) Medical on inhaler hours as Branc h needed for Wheezing, Shortness of Breath or Chest tightness. losartan 2021-05 Yes [id number] 100mg Take 1 [facility] [place] 100 mg 1-22 tablet by ity of tablet 00:00: mouth in [place] 00 the Medical morning. Branch albuterol 2021-05 Yes [id number] 2{puff} Inhale 2 [facility] (PROAIR 1-22 Puffs ity of HFA) 90 00:00: every 6 [place] mcg/actuati 00 (six) Medical on inhaler hours as Branc h needed for Wheezing, Shortness of Breath or Chest tightness. losartan 2021-05 Yes [id number] 100mg Take 1 [facility] [place] 100 mg 1-22 tablet by ity of tablet 00:00: mouth in [place] 00 the Medical morning. Branch albuterol 2021-05 Yes [id number] 2{puff} Inhale 2 [facility] (PROAIR 1-22 Puffs ity of HFA) 90 00:00: every 6 [place] mcg/actuati 00 (six) Medical on inhaler hours as Branc h needed for Wheezing, Shortness of Breath or Chest tightness. losartan 2021-05 Yes [id number] 100mg Take 1 [facility] [place] 100 mg 1-22 tablet by ity of tablet 00:00: mouth in [place] 00 the Medical morning. Branch albuterol 2021-05 Yes [id number] 2{puff} Inhale 2 [facility] (PROAIR 1-22 Puffs ity of HFA) 90 00:00: every 6 [place] mcg/actuati 00 (six) Medical on inhaler hours as Branc h needed for Wheezing, Shortness of Breath or Chest tightness. losartan 2021-05 Yes [id number] 100mg Take 1 [facility] [place] 100 mg 1-22 tablet by ity of tablet 00:00: mouth in [place] 00 the Medical morning. Branch albuterol 2021-05 Yes [id number] 2{puff} Inhale 2 [facility] (PROAIR 1-22 Puffs ity of HFA) 90 00:00: every 6 [place] mcg/actuati 00 (six) Medical on inhaler hours as Branc h needed for Wheezing, Shortness of Breath or Chest tightness. losartan 2021-05 Yes [id number] 100mg Take 1 [facility] [place] 100 mg 1-22 tablet by ity of tablet 00:00: mouth in [place] 00 the Medical morning. Branch albuterol 2021-05 Yes [id number] 2{puff} Inhale 2 [facility] (PROAIR 1-22 Puffs ity of HFA) 90 00:00: every 6 [place] mcg/actuati 00 (six) Medical on inhaler hours as Branc h needed for Wheezing, Shortness of Breath or Chest tightness. losartan 2021-05 Yes [id number] 100mg Take 1 [facility] [place] 100 mg 1-22 tablet by ity of tablet 00:00: mouth in [place] 00 the Medical morning. Branch albuterol 2021-05 Yes [id number] 2{puff} Inhale 2 [facility] (PROAIR 1-22 Puffs ity of HFA) 90 00:00: every 6 [place] mcg/actuati 00 (six) Medical on inhaler hours as Branc h needed for Wheezing, Shortness of Breath or Chest tightness. losartan 2021-05 Yes [id number] 100mg Take 1 [facility] [place] 100 mg 1-22 tablet by ity of tablet 00:00: mouth in [place] 00 the Medical morning. Branch albuterol 2021-05 Yes [id number] 2{puff} Inhale 2 [facility] (PROAIR 1-22 Puffs ity of HFA) 90 00:00: every 6 [place] mcg/actuati 00 (six) Medical on inhaler hours as Branc h needed for Wheezing, Shortness of Breath or Chest tightness. losartan 2021-05 Yes [id number] 100mg Take 1 [facility] [place] 100 mg 1-22 tablet by ity of tablet 00:00: mouth in [place] 00 the Medical morning. Branch albuterol 2021-05 Yes [id number] 2{puff} Inhale 2 [facility] (PROAIR 1-22 Puffs ity of HFA) 90 00:00: every 6 [place] mcg/actuati 00 (six) Medical on inhaler hours as Branc h needed for Wheezing, Shortness of Breath or Chest tightness. losartan 2021-05 Yes [id number] 100mg Take 1 [facility] [place] 100 mg 1-22 tablet by ity of tablet 00:00: mouth in [place] 00 the Medical morning. Branch albuterol 2021-05 Yes [id number] 2{puff} Inhale 2 [facility] (PROAIR 1-22 Puffs ity of HFA) 90 00:00: every 6 [place] mcg/actuati 00 (six) Medical on inhaler hours as Branc h needed for Wheezing, Shortness of Breath or Chest tightness. losartan 2021-05 Yes [id number] 100mg Take 1 [place] 100 mg 1-22 tablet by ity of tablet 00:00: mouth in [place] 00 the Medical morning. Branch albuterol 2021-05 Yes [id number] 2{puff} Inhale 2 [facility] (PROAIR 1-22 Puffs ity of HFA) 90 00:00: every 6 [place] mcg/actuati 00 (six) Medical on inhaler hours as Branc h needed for Wheezing, Shortness of Breath or Chest tightness. losartan 2021-05 Yes [id number] 100mg Take 1 [place] 100 mg 1-22 tablet by ity of tablet 00:00: mouth in [place] 00 the Medical morning. Branch albuterol 2021-05 Yes [id number] 2{puff} Inhale 2 [facility] (PROAIR 1-22 Puffs ity of HFA) 90 00:00: every 6 [place] mcg/actuati 00 (six) Medical on inhaler hours as Branc h needed for Wheezing, Shortness of Breath or Chest tightness. losartan 2021-05 Yes [id number] 100mg Take 1 [place] 100 mg 1-22 tablet by ity of tablet 00:00: mouth in [place] 00 the Medical morning. Branch albuterol 2021-05 Yes [id number] 2{puff} Inhale 2 [facility] (PROAIR 1-22 Puffs ity of HFA) 90 00:00: every 6 [place] mcg/actuati 00 (six) Medical on inhaler hours as Branc h needed for Wheezing, Shortness of Breath or Chest tightness. losartan 2021-05 Yes [id number] 100mg Take 1 [place] 100 mg 1-22 tablet by ity of tablet 00:00: mouth in [place] 00 the Medical morning. Branch albuterol 2021-05 Yes [id number] 2{puff} Inhale 2 [facility] (PROAIR 1-22 Puffs ity of HFA) 90 00:00: every 6 [place] mcg/actuati 00 (six) Medical on inhaler hours as Branc h needed for Wheezing, Shortness of Breath or Chest tightness. losartan 2021-05 Yes [id number] 100mg Take 1 [place] 100 mg 1-22 tablet by ity of tablet 00:00: mouth in [place] 00 the Medical morning. Branch albuterol 2021-05 Yes [id number] 2{puff} Inhale 2 [facility] (PROAIR 1-22 Puffs ity of HFA) 90 00:00: every 6 [place] mcg/actuati 00 (six) Medical on inhaler hours as Branc h needed for Wheezing, Shortness of Breath or Chest tightness. losartan 2021-05 Yes [id number] 100mg Take 1 [place] 100 mg 1-22 tablet by ity of tablet 00:00: mouth in [place] 00 the Medical morning. Branch albuterol 2021-05 Yes [id number] 2{puff} Inhale 2 [facility] (PROAIR 1-22 Puffs ity of HFA) 90 00:00: every 6 [place] mcg/actuati 00 (six) Medical on inhaler hours as Branc h needed for Wheezing, Shortness of Breath or Chest tightness. losartan 2021-05 Yes [id number] 100mg Take 1 [place] 100 mg 1-22 tablet by ity of tablet 00:00: mouth in [place] 00 the Medical morning. Branch albuterol 2021-05 Yes [id number] 2{puff} Inhale 2 [facility] (PROAIR 1-22 Puffs ity of HFA) 90 00:00: every 6 [place] mcg/actuati 00 (six) Medical on inhaler hours as Branc h needed for Wheezing, Shortness of Breath or Chest tightness. losartan 2021-05 Yes [id number] 100mg Take 1 [place] 100 mg 1-22 tablet by ity of tablet 00:00: mouth in [place] 00 the Medical morning. Branch albuterol 2021-05 Yes [id number] 2{puff} Inhale 2 [facility] (PROAIR 1-22 Puffs ity of HFA) 90 00:00: every 6 [place] mcg/actuati 00 (six) Medical on inhaler hours as Branc h needed for Wheezing, Shortness of Breath or Chest tightness. albuterol 2021-05 Yes [id number] 2{puff} Inhale 2 [facility] (PROAIR 1-22 Puffs ity of HFA) 90 00:00: every 6 [place] mcg/actuati 00 (six) Medical on inhaler hours as Branc h needed for Wheezing, Shortness of Breath or Chest tightness. albuterol 2021-05 Yes [id number] 2{puff} Inhale 2 [facility] (PROAIR 1-22 Puffs ity of HFA) 90 00:00: every 6 [place] mcg/actuati 00 (six) Medical on inhaler hours as Branc h needed for Wheezing, Shortness of Breath or Chest tightness. albuterol 2021-05 Yes [id number] 2{puff} Inhale 2 [facility] (PROAIR 1-22 Puffs ity of HFA) 90 00:00: every 6 [place] mcg/actuati 00 (six) Medical on inhaler hours as Branc h needed for Wheezing, Shortness of Breath or Chest tightness. albuterol 2021-05 Yes [id number] 2{puff} Inhale 2 [facility] (PROAIR 1-22 Puffs ity of HFA) 90 00:00: every 6 [place] mcg/actuati 00 (six) Medical on inhaler hours as Branc h needed for Wheezing, Shortness of Breath or Chest tightness. albuterol 2021-05 Yes [id number] 2{puff} Inhale 2 [facility] (PROAIR 1-22 Puffs ity of HFA) 90 00:00: every 6 [place] mcg/actuati 00 (six) Medical on inhaler hours as Branc h needed for Wheezing, Shortness of Breath or Chest tightness. albuterol 2021-05 Yes [id number] 2{puff} Inhale 2 [facility] (PROAIR 1-22 Puffs ity of HFA) 90 00:00: every 6 [place] mcg/actuati 00 (six) Medical on inhaler hours as Branc h needed for Wheezing, Shortness of Breath or Chest tightness. albuterol 2021-05 Yes [id number] 2{puff} Inhale 2 [facility] (PROAIR 1-22 Puffs ity of HFA) 90 00:00: every 6 [place] mcg/actuati 00 (six) Medical on inhaler hours as Branc h needed for Wheezing, Shortness of Breath or Chest tightness. albuterol 2021-05 Yes [id number] 2{puff} Inhale 2 [facility] (PROAIR 1-22 Puffs ity of HFA) 90 00:00: every 6 [place] mcg/actuati 00 (six) Medical on inhaler hours as Branc h needed for Wheezing, Shortness of Breath or Chest tightness. albuterol 2021-05 Yes [id number] 2{puff} Inhale 2 [facility] (PROAIR 1-22 Puffs ity of HFA) 90 00:00: every 6 [place] mcg/actuati 00 (six) Medical on inhaler hours as Branc h needed for Wheezing, Shortness of Breath or Chest tightness. albuterol 2021-05 Yes [id number] 2{puff} Inhale 2 [facility] (PROAIR 1-22 Puffs ity of HFA) 90 00:00: every 6 [place] mcg/actuati 00 (six) Medical on inhaler hours as Branc h needed for Wheezing, Shortness of Breath or Chest tightness. albuterol 2021-05 Yes [id number] 2{puff} Inhale 2 [facility] (PROAIR 1-22 Puffs ity of HFA) 90 00:00: every 6 [place] mcg/actuati 00 (six) Medical on inhaler hours as Branc h needed for Wheezing, Shortness of Breath or Chest tightness. albuterol 2021-05 Yes [id number] 2{puff} Inhale 2 [facility] (PROAIR 1-22 Puffs ity of HFA) 90 00:00: every 6 [place] mcg/actuati 00 (six) Medical on inhaler hours as Branc h needed for Wheezing, Shortness of Breath or Chest tightness. albuterol 2021-05 Yes [id number] 2{puff} Inhale 2 [facility] (PROAIR 1-22 Puffs ity of HFA) 90 00:00: every 6 [place] mcg/actuati 00 (six) Medical on inhaler hours as Branc h needed for Wheezing, Shortness of Breath or Chest tightness. albuterol 2021-05 Yes [id number] 2{puff} Inhale 2 [facility] (PROAIR 1-22 Puffs ity of HFA) 90 00:00: every 6 [place] mcg/actuati 00 (six) Medical on inhaler hours as Branc h needed for Wheezing, Shortness of Breath or Chest tightness. albuterol 2021-05 Yes [id number] 2{puff} Inhale 2 [facility] (PROAIR 1-22 Puffs ity of HFA) 90 00:00: every 6 [place] mcg/actuati 00 (six) Medical on inhaler hours as Branc h needed for Wheezing, Shortness of Breath or Chest tightness. albuterol 2021-05 Yes [id number] 2{puff} Inhale 2 [facility] (PROAIR 1-22 Puffs ity of HFA) 90 00:00: every 6 [place] mcg/actuati 00 (six) Medical on inhaler hours as Branc h needed for Wheezing, Shortness of Breath or Chest tightness. albuterol 2021-05 Yes [id number] 2{puff} Inhale 2 [facility] (PROAIR 1-22 Puffs ity of HFA) 90 00:00: every 6 [place] mcg/actuati 00 (six) Medical on inhaler hours as Branc h needed for Wheezing, Shortness of Breath or Chest tightness. albuterol 2021-05 Yes [id number] 2{puff} Inhale 2 [facility] (PROAIR 1-22 Puffs ity of HFA) 90 00:00: every 6 [place] mcg/actuati 00 (six) Medical on inhaler hours as Branc h needed for Wheezing, Shortness of Breath or Chest tightness. albuterol 2021-05 Yes [id number] 2{puff} Inhale 2 [facility] (PROAIR 1-22 Puffs ity of HFA) 90 00:00: every 6 [place] mcg/actuati 00 (six) Medical on inhaler hours as Branc h needed for Wheezing, Shortness of Breath or Chest tightness. albuterol 2021-05 Yes [id number] 2{puff} Inhale 2 [facility] (PROAIR 1-22 Puffs [...] evening. Indication s: atrial fibrillati on apixaban 2022-0 Yes [id number] 5mg Take 1 [facility] (ELIQUIS) 5 9-30 tablet by ity of mg tablet 00:00: mouth [facility] 00 the Medical morning Branch and 1 [...] s: atrial fibrillati on metFORMIN 2021-0 Yes [id number] 1000mg Take 1 [facility] 1,000 mg 9-23 tablet by ity of tablet 00:00: mouth in [place] the morning Branch and 1 tablet in the evening. Take with meals. Omeprazole 2022-0 Yes [id number] 20mg Take 1 [facility] 20 mg 9-23 tablet by ity of tablet 00:00: mouth in [place] the . Branch metFORMIN 2-0 Yes [id number] 1000mg Take 1 [facility] 1,000 mg 9-23 tablet by ity of tablet 00:00: mouth in [place] the morning Branch and 1 tablet in the evening. Take with meals. Omeprazole 2022-0 Yes [id number] 20mg Take 1 [facility] 20 mg 9-23 tablet by ity of tablet 00:00: mouth in [place] the morning. Branch metFORMIN 2-0 Yes [id number] 1000mg Take 1 [facility] 1,000 mg 9-23 tablet by ity of tablet 00:00: mouth in [place] the morning Branch and 1 tablet in the evening. Take with meals. Omeprazole 2022-0 Yes [id number] 20mg Take 1 [facility] 20 mg 9-23 tablet by ity of tablet 00:00: mouth in [place] the morning. Branch metFORMIN 2022-0 Yes [id number] 1000mg Take 1 [facility] 1,000 mg 9-23 tablet by ity of tablet 00:00: mouth in [place] [address] the [facility] morning Branch and 1 tablet in the evening. Take with meals. Omeprazole 2022-0 Yes [id number] 20mg Take 1 [facility] 20 mg 9-23 tablet by ity of tablet 00:00: mouth in [place] the morning. Branch metFORMIN 2022-0 Yes [id number] 1000mg Take 1 [facility] 1,000 mg 9-23 tablet by ity of tablet 00:00: mouth in [place] [address] the morning Branch and 1 tablet in the evening. Take with meals. Omeprazole 2022-0 Yes [id number] 20mg Take 1 [facility] 20 mg 9-23 tablet by ity of tablet 00:00: mouth in [place] [address] the morning. Branch metFORMIN 2022-0 Yes [id number] 1000mg Take 1 [facility] 1,000 mg 9-23 tablet by ity of tablet 00:00: mouth in [place] [address] the [facility] morning [place] and 1 tablet in the evening. Take with meals. Omeprazole 2022-0 Yes [id number] 20mg Take 1 [facility] 20 mg 9-23 tablet by ity of tablet 00:00: mouth in [place] [address] the morning. Branch metFORMIN 2022-0 Yes [id number] 1000mg Take 1 [facility] 1,000 mg 9-23 tablet by ity of tablet 00:00: mouth in [address] morning [place] and 1 tablet in the evening. Take with meals. Omeprazole 2022-0 Yes [id number] 20mg Take 1 [facility] 20 mg 9-23 tablet by ity of tablet 00:00: mouth in [place] the . Branch metFORMIN 2022-0 Yes [id number] 1000mg Take 1 [facility] 1,000 mg 9-23 tablet by ity of tablet 00:00: mouth in [place] [address] the [facility] morning [place] and 1 tablet in the evening. Take with meals. Omeprazole 2022-0 Yes [id number] 20mg Take 1 [facility] 20 mg 9-23 tablet by ity of tablet 00:00: mouth in [place] [address] the morning. Branch metFORMIN 2022-0 Yes [id number] 1000mg Take 1 [facility] 1,000 mg 9-23 tablet by ity of tablet 00:00: mouth in [address] morning [place] and 1 tablet in the evening. Take with meals. Omeprazole 2022-0 Yes [id number] 20mg Take 1 [facility] 20 mg 9-23 tablet by ity of tablet 00:00: mouth in [place] [address] the morning. Branch metFORMIN 2022-0 Yes [id number] 1000mg Take 1 [facility] 1,000 mg 9-23 tablet by ity of tablet 00:00: mouth in [place] the Branch and 1 tablet in the evening. Take with meals. Omeprazole 2022-0 Yes [id number] 20mg Take 1 [facility] 20 mg 9-23 tablet by ity of tablet 00:00: mouth in [place] the morning. Branch metFORMIN 2022-0 Yes [id number] 1000mg Take 1 [facility] 1,000 mg 9-23 tablet by ity of tablet 00:00: mouth in [place] [address] the Branch and 1 tablet in the evening. Take with meals. Omeprazole 2022-0 Yes [id number] 20mg Take 1 [facility] 20 mg 9-23 tablet by ity of tablet 00:00: mouth in [place] the morning. Branch metFORMIN 2022-0 Yes [id number] 1000mg Take 1 [facility] 1,000 mg 9-23 tablet by ity of tablet 00:00: mouth in [place] the Branch and 1 tablet in the evening. Take with meals. Omeprazole 2022-0 Yes [id number] 20mg Take 1 [facility] 20 mg 9-23 tablet by ity of tablet 00:00: mouth in [place] the . Branch metFORMIN 2022-0 Yes [id number] 1000mg Take 1 [facility] 1,000 mg 9-23 tablet by ity of tablet 00:00: mouth in [address] [place] and 1 tablet in the evening. Take with meals. Omeprazole 2022-0 Yes [id number] 20mg Take 1 [facility] 20 mg 9-23 tablet by ity of tablet 00:00: mouth in [place] the morning. Branch metFORMIN 2022-0 Yes [id number] 1000mg Take 1 [facility] 1,000 mg 9-23 tablet by ity of tablet 00:00: mouth in [place] [address] the morning Branch and 1 tablet in the evening. Take with meals. Omeprazole 2022-0 Yes [id number] 20mg Take 1 [facility] 20 mg 9-23 tablet by ity of tablet 00:00: mouth in [place] [address] the morning. Branch metFORMIN 2022-0 Yes [id number] 1000mg Take 1 [facility] 1,000 mg 9-23 tablet by ity of tablet 00:00: mouth in [place] [address] the Medical morning Branch and 1 tablet in the evening. Take with meals. Omeprazole 2022-0 Yes [id number] 20mg Take 1 [facility] 20 mg 9-23 tablet by ity of tablet 00:00: mouth in [place] the morning. Branch metFORMIN 2022-0 Yes [id number] 1000mg Take 1 [facility] 1,000 mg 9-23 tablet by ity of tablet 00:00: mouth in [place] the Medical morning Branch and 1 tablet in the evening. Take with meals. Omeprazole 2022-0 Yes [id number] 20mg Take 1 [facility] 20 mg 9-23 tablet by ity of tablet 00:00: mouth in [place] the morning. Branch metFORMIN 2022-0 Yes [id number] 1000mg Take 1 [facility] 1,000 mg 9-23 tablet by ity of tablet 00:00: mouth in [place] the morning Branch and 1 tablet in the evening. Take with meals. Omeprazole 2022-0 Yes [id number] 20mg Take 1 [facility] 20 mg 9-23 tablet by ity of tablet 00:00: mouth in [place] the morning. Branch metFORMIN 2022-0 Yes [id number] 1000mg Take 1 [facility] 1,000 mg 9-23 tablet by ity of tablet 00:00: mouth in [place] the morning Branch and 1 tablet in the evening. Take with meals. Omeprazole 2022-0 Yes [id number] 20mg Take 1 [facility] 20 mg 9-23 tablet by ity of tablet 00:00: mouth in [place] the morning. Branch metFORMIN 2022-0 Yes [id number] 1000mg Take 1 [facility] 1,000 mg 9-23 tablet by ity of tablet 00:00: mouth in [place] the morning Branch and 1 tablet in the evening. Take with meals. Omeprazole 2022-0 Yes [id number] 20mg Take 1 [facility] 20 mg 9-23 tablet by ity of tablet 00:00: mouth in [place] the morning. Branch metFORMIN 2022-0 2022- No [id number] 1000mg Take 1 [facility] 1,000 mg 9-23 12-12 tablet by ity o f tablet 00:00: 00:00 mouth in [place] 00 :00 the Medical morning Branch and 1 tablet in the evening. Take with meals. Omeprazole 2022-0 2022- No [id number] 20mg Take 1 [facility] 20 mg 9-23 12-12 tablet by ity of tablet 00:00: 00:00 mouth in [place] 00 :00 the Medical morning. Branch metFORMIN 2021- No [id number] 1000mg Take 1 [facility] 1,000 mg 02-02 tablet by ity o f tablet 00:00: 00:00 mouth in [place] 00 :00 the Medical morning Branch and 1 tablet in the evening. Take with meals. Omeprazole 2021- No [id number] 20mg Take 1 [facility] 20 mg 02-02 tablet by ity of tablet 00:00: 00:00 mouth in [place] 00 :00 the Medical morning. Branch apixaban Yes 1358 5mg Take 1 [facility] (ELIQUIS) 5 9-07 tablet by ity of mg tablet 00:00: mouth in [place] [address] the Medical morning Branch and 1 tablet in the evening. Indication s: atrial fibrillati on apixaban Yes 1358 5mg Take 1 [facility] (ELIQUIS) 5 9-07 tablet by ity of mg tablet 00:00: mouth in [address] morning [place] and 1 tablet in the evening. Indication s: atrial fibrillati on apixaban Yes 1358 5mg Take 1 [facility] (ELIQUIS) 5 9-07 tablet by ity of mg tablet 00:00: mouth in [place] [address] the [facility] morning Branch and 1 tablet in the evening. Indication s: atrial fibrillati on apixaban Yes 1358 5mg Take 1 [facility] (ELIQUIS) 5 9-07 tablet by ity of mg tablet 00:00: mouth in [place] [address] the [facility] morning Branch and 1 tablet in the evening. Indication s: atrial fibrillati on apixaban 0 Yes 1358 5mg Take 1 [facility] (ELIQUIS) 5 9-07 tablet by ity of mg tablet 00:00: mouth in [place] [address] the [facility] morning Branch and 1 tablet in the evening. Indication s: atrial fibrillati on apixaban 2021-0 Yes 1358 5mg Take 1 [facility] (ELIQUIS) 5 9-07 tablet by ity of mg tablet 00:00: mouth in [place] [address] the Medical morning Branch and 1 tablet in the evening. Indication s: atrial fibrillati on apixaban 2021-0 Yes 1358 5mg Take 1 [facility] (ELIQUIS) 5 9-07 tablet by ity of mg tablet 00:00: [place] 00 the Medical morning Branch and 1 tablet in the evening. Indication s: atrial fibrillati on apixaban Yes 1358 5mg Take 1 [facility] (ELIQUIS) 5 - tablet by ity of mg tablet 00:00: [...] evening. Indication s: atrial fibrillati on montelukast No 10mg Take 10 mg [facility] (SINGULAIR) 8-25 08-25 by mouth. it y of 10 mg 10:02: 00:00 [place] tablet 41 :00 Medical [place] montelukast Yes [id number] 10mg Take 1 [facility] (SINGULAIR) 8-25 tablet by ity of 10 mg 00:00: mouth in [place] tablet 00 the Medical morning. [place] montelukast Yes [id number] 10mg Take 1 [facility] (SINGULAIR) 8-25 tablet by ity of 10 mg 00:00: mouth in [place] tablet 00 the Medical morning. [place] montelukast Yes [id number] 10mg Take 1 [facility] (SINGULAIR) 8-25 tablet by ity of 10 mg 00:00: mouth in [place] tablet 00 the Medical morning. [place] montelukast Yes [id number] 10mg Take 1 [facility] (SINGULAIR) 8-25 tablet by ity of 10 mg 00:00: mouth in [place] tablet 00 the Medical morning. [place] montelukast Yes [id number] 10mg Take 1 [facility] (SINGULAIR) 8-25 tablet by ity of 10 mg 00:00: mouth in [place] tablet 00 the Medical morning. [place] montelukast Yes [id number] 10mg Take 1 [facility] (SINGULAIR) 8-25 tablet by ity of 10 mg 00:00: mouth in [place] tablet 00 the Medical morning. Branch montelukast 0 Yes [id number] 10mg Take 1 [facility] (SINGULAIR) 8-25 tablet by ity of 10 mg 00:00: mouth in [place] tablet 00 the Medical morning. Branch montelukast 0 Yes [id number] 10mg Take 1 [facility] (SINGULAIR) 8-25 tablet by ity of 10 mg 00:00: mouth in [place] tablet 00 the Medical morning. Branch montelukast 0 Yes [id number] 10mg Take 1 [facility] (SINGULAIR) 8-25 tablet by ity of 10 mg 00:00: mouth in [place] tablet 00 the Medical morning. Branch montelukast 0 Yes [id number] 10mg Take 1 [facility] (SINGULAIR) 8-25 tablet by ity of 10 mg 00:00: mouth in [place] tablet 00 the Medical morning. Branch montelukast 0 Yes [id number] 10mg Take 1 [facility] (SINGULAIR) 8-25 tablet by ity of 10 mg 00:00: mouth in [place] tablet 00 the Medical morning. Branch montelukast Yes [id number] 10mg Take 1 [facility] (SINGULAIR) 8-25 tablet by ity of 10 mg 00:00: mouth in [place] tablet 00 the Medical morning. Branch montelukast 0 Yes [id number] 10mg Take 1 [facility] (SINGULAIR) 8-25 tablet by ity of 10 mg 00:00: mouth in [place] tablet 00 the Medical morning. Branch montelukast 0 Yes [id number] 10mg Take 1 [facility] (SINGULAIR) 8-25 tablet by ity of 10 mg 00:00: mouth in [place] tablet 00 the Medical morning. Branch montelukast 0 Yes [id number] 10mg Take 1 [facility] (SINGULAIR) 8-25 tablet by ity of 10 mg 00:00: mouth in [place] tablet 00 the Medical morning. Branch montelukast 0 Yes [id number] 10mg Take 1 [facility] (SINGULAIR) 8-25 tablet by ity of 10 mg 00:00: mouth in [place] tablet 00 the Medical morning. Branch montelukast 0 Yes [id number] 10mg Take 1 [facility] (SINGULAIR) 8-25 tablet by ity of 10 mg 00:00: mouth in [place] tablet 00 the Medical morning. [place] montelukast 0 Yes [id number] 10mg Take 1 [facility] (SINGULAIR) 8-25 tablet by ity of 10 mg 00:00: mouth in [place] tablet 00 the Medical morning. Branch montelukast Yes [id number] 10mg Take 1 [facility] (SINGULAIR) 8-25 tablet by ity of 10 mg 00:00: mouth in [place] tablet 00 the Medical morning. Branch montelukast Yes [id number] 10mg Take 1 [facility] (SINGULAIR) 8-25 tablet by ity of 10 mg 00:00: mouth in [place] tablet 00 the Medical morning. [place] montelukast Yes [id number] 10mg Take 1 [facility] (SINGULAIR) 8-25 tablet by ity of 10 mg 00:00: mouth in [place] tablet 00 the Medical morning. [place] montelukast Yes [id number] 10mg Take 1 [facility] (SINGULAIR) 8-25 tablet by ity of 10 mg 00:00: mouth in [place] tablet 00 the Medical morning. [place] montelukast Yes [id number] 10mg Take 1 [facility] (SINGULAIR) 8-25 tablet by ity of 10 mg 00:00: mouth in [place] tablet 00 the Medical morning. [place] montelust Yes [id number] 10mg Take 1 [facility] (SINGULAIR) 8-25 tablet by ity of 10 mg 00:00: mouth in [place] tablet 00 the Medical morning. [place] montelukast 0 Yes [id number] 10mg Take 1 [facility] (SINGULAIR) 8-25 tablet by ity of 10 mg 00:00: mouth in [place] tablet 00 the Medical morning. [place] montelukast Yes [id number] 10mg Take 1 [facility] (SINGULAIR) 8-25 tablet by ity of 10 mg 00:00: mouth in [place] tablet 00 the Medical morning. [place] montelukast Yes [id number] 10mg Take 1 [facility] (SINGULAIR) 8-25 tablet by ity of 10 mg 00:00: mouth in [place] tablet 00 the Medical morning. [place] montelust Yes [id number] 10mg Take 1 [facility] (SINGULAIR) 8-25 tablet by ity of 10 mg 00:00: mouth in [place] tablet 00 the Medical morning. Branch montelukast Yes [id number] 10mg Take 1 [facility] (SINGULAIR) 8-25 tablet by ity of 10 mg 00:00: mouth in [place] tablet 00 the Medical morning. Branch montelukast Yes [id number] 10mg Take 1 [facility] (SINGULAIR) 8-25 tablet by ity of 10 mg 00:00: mouth in [place] tablet 00 the Medical morning. Branch montelukast Yes [id number] 10mg Take 1 [facility] (SINGULAIR) 8-25 tablet by ity of 10 mg 00:00: mouth in [place] tablet 00 the morning. [place] letitiast 3- No [id number] 10mg Take 1 [facility] (SINGULAIR) 8-25 02-14 tablet by it y of 10 mg 00:00: 00:00 mouth in [place] tablet 00 :00 the Medical morning. Branch apixaban Yes 1358 5mg Take 1 [facility] (ELIQUIS) 5 8-19 tablet by ity of mg tablet 00:00: [place] the morning Branch and 1 tablet [...] Indication s: atrial fibrillati on apixaban 2021-0 Yes 1358 5mg Take 1 [facility] (ELIQUIS) [...] Indication s: atrial fibrillati on apixaban 2021-0 Yes 1358 5mg Take 1 [facility] (ELIQUIS) 5 8-19 tablet by ity of mg tablet 00:00: [place] the Medical morning Branch and 1 tablet in the evening. Indication s: atrial fibrillati on apixaban 202- No 1358 5mg Take 1 [facility] (ELIQUIS) 5 8-19 09-07 tablet by it y of mg tablet 00:00: 00:00 mouth in [place] 00 :00 the Medical morning Branch and 1 tablet in the evening. Indication s: atrial fibrillati on metFORMIN 2021-0 Yes [id number] 1000mg Take 1 [facility] 1,000 mg 8-02 tablet by ity of tablet 00:00: mouth in [place] 00 the Medical morning Branch and 1 tablet in the evening. Take with meals. metFORMIN 2021-0 Yes [id number] 1000mg Take 1 [facility] 1,000 mg 8-02 tablet by ity of tablet 00:00: mouth in [place] 00 the Medical morning Branch and 1 tablet in the evening. Take with meals. metFORMIN 2021-0 Yes [id number] 1000mg Take 1 [facility] 1,000 mg 8-02 tablet by ity of tablet 00:00: mouth in [place] 00 the Medical morning Branch and 1 tablet in the evening. Take with meals. metFORMIN 2021-0 Yes [id number] 1000mg Take 1 [facility] 1,000 mg 8-02 tablet by ity of tablet 00:00: mouth in [place] 00 the Medical morning Branch and 1 tablet in the evening. Take with meals. metFORMIN 2021-0 Yes [id number] 1000mg Take 1 [facility] 1,000 mg 8-02 tablet by ity of tablet 00:00: mouth in [place] 00 the Medical morning Branch and 1 tablet in the evening. Take with meals. metFORMIN 2022-0 Yes [id number] 1000mg Take 1 [facility] 1,000 mg 8-02 tablet by ity of tablet 00:00: mouth in [place] 00 the Medical morning Branch and 1 tablet in the evening. Take with meals. metFORMIN 2022-0 Yes [id number] 1000mg Take 1 [facility] 1,000 mg 8-02 tablet by ity of tablet 00:00: mouth in [place] 00 the Medical morning Branch and 1 tablet in the evening. Take with meals. metFORMIN 2021-0 Yes [id number] 1000mg Take 1 [facility] 1,000 mg 8-02 tablet by ity of tablet 00:00: mouth in [place] [address] the Medical morning Branch and 1 tablet in the evening. Take with meals. metFORMIN 2021-0 Yes [id number] 1000mg Take 1 [facility] 1,000 mg 8-02 tablet by ity of tablet 00:00: mouth in [place] [place] [address] the Medical morning Branch and 1 tablet in the evening. Take with meals. metFORMIN 2021-0 Yes [id number] 1000mg Take 1 [facility] 1,000 mg 8-02 tablet by ity of tablet 00:00: mouth in [place] [address] the Medical morning Branch and 1 tablet in the evening. Take with meals. metFORMIN 2021-0 2021- No [id number] 1000mg Take 1 [facility] 1,000 mg 8-06 21-23 tablet by ity o f tablet 00:00: 00:00 mouth in [place] 00 :00 the [facility] morning [place] and 1 tablet in the evening. Take with meals. metFORMIN 2021-0 2021- No [id number] 1000mg Take 1 [facility] 1,000 mg 8-06 21- tablet by ity o f tablet 00:00: 00:00 mouth in [place] 00 :00 the [facility] morning [place] and 1 tablet in the evening. Take with meals. apixaban 2021-0 Yes 1358 5mg Take 1 [facility] (ELIQUIS) 5 7-21 tablet by ity of mg tablet 00:00: mouth in [address] Medical morning Branch and 1 tablet in the evening. Indication s: atrial fibrillati on apixaban 2021-0 Yes 1358 5mg Take 1 [facility] (ELIQUIS) 5 7-21 tablet by ity of mg tablet 00:00: mouth in [facility] 00 the Medical morning Branch and 1 tablet in the evening. Indication s: atrial fibrillati on apixaban 2021-0 2022- No 1358 5mg Take 1 [facility] s (ELIQUIS) 5 7-21 08-19 tablet by it y of mg tablet 00:00: 00:00 mouth in [facility] 00 :00 the Medical morning Branch and 1 tablet in the evening. Indication s: atrial fibrillati on chlorphenir 2022-0 Yes [id number] 4mg Take 1 [facility] amine 4 mg 6-29 tablet by ity of tablet 00:00: mouth [place] 00 every 6 Medical (six) Branch hours as needed for Allergies or Runny nose. calcium/mag 2021-0 Yes [id number] 1{each} Take 1 [facility] nesium/zinc 6-29 Each by ity o f (CALCIUM-MA 00:00: mouth [place] GNESUIUM-ZI 00 daily. Medica l [place]) Branch 333-133-5 mg Tab benzonatate 2021-0 Yes [id number] 100mg Take 1 [facility] 100 mg 6-29 capsule by ity of capsule 00:00: mouth 3 [place] 00 (three) Medical times Branch daily as needed for Cough. nirmatrelvi 2021-0 Yes [id number] 3{tbl} Take 3 [facility] r-ritonavir 6-29 tablets by it y of (PAXLOVID, 00:00: mouth [place] EUA[place] 150 00 (two) Medical mg x 2- 100 times Branch mg tablet daily. chlorphenir 2021-0 Yes [id number] 4mg Take 1 [facility] amine 4 mg 6-29 tablet by ity of tablet 00:00: mouth [place] 00 every 6 Medical (six) Branch hours as needed for Allergies or Runny nose. calcium/mag 2021-0 Yes [id number] 1{each} Take 1 [facility] nesium/zinc 6-29 Each by ity o f (CALCIUM-MA 00:00: mouth [place] GNESUIUM-ZI 00 daily. Medica l [place]) Branch 333-133-5 mg Tab benzonatate 2021-0 Yes [id number] 100mg Take 1 [facility] 100 mg 6-29 capsule by ity of capsule 00:00: mouth 3 [place] 00 (three) Medical times Branch daily as needed for Cough. nirmatrelvi 2021-0 Yes [id number] 3{tbl} Take 3 [facility] r-ritonavir 6-29 tablets by it y of (PAXLOVID, 00:00: mouth [place] EUA[place] 150 00 (two) Medical mg x 2- 100 times Branch mg tablet daily. chlorphenir 2-0 Yes [id number] 4mg Take 1 [facility] amine 4 mg 6-29 tablet by ity of tablet 00:00: mouth [place] 00 every 6 Medical (six) Branch hours as needed for Allergies or Runny nose. calcium/mag 2021-0 Yes [id number] 1{each} Take 1 [facility] nesium/zinc 6-29 Each by ity o f (CALCIUM-MA 00:00: mouth [place] GNESUIUM-ZI 00 daily. Medica l [place]) Branch 333-133-5 mg Tab benzonatate 2-0 Yes [id number] 100mg Take 1 [facility] 100 mg 6-29 capsule by ity of capsule 00:00: mouth 3 [place] 00 (three) Medical times Branch daily as needed for Cough. nirmatrelvi 2021-0 Yes [id number] 3{tbl} Take 3 [facility] r-ritonavir 6-29 tablets by it y of (PAXLOVID, 00:00: mouth [place] EUA[place] 150 00 (two) Medical mg x 2- 100 times Branch mg tablet daily. chlorphenir 2021-0 Yes [id number] 4mg Take 1 [facility] amine 4 mg 6-29 tablet by ity of tablet 00:00: mouth [place] 00 every 6 Medical (six) Branch hours as needed for Allergies or Runny nose. calcium/mag 2021-0 Yes [id number] 1{each} Take 1 [facility] nesium/zinc 6-29 Each by ity o f (CALCIUM-MA 00:00: mouth [place] GNESUIUM-ZI 00 daily. Medica l [place]) Branch 333-133-5 mg Tab benzonatate 2021-0 Yes [id number] 100mg Take 1 [facility] 100 mg 6-29 capsule by ity of capsule 00:00: mouth 3 [place] 00 (three) Medical times Branch daily as needed for Cough. nirmatrelvi 2021-0 Yes [id number] 3{tbl} Take 3 [facility] r-ritonavir 6-29 tablets by it y of (PAXLOVID, 00:00: mouth [place] EUA[place] 150 00 (two) Medical mg x 2- 100 times Branch mg tablet daily. chlorphenir 2-0 Yes [id number] 4mg Take 1 [facility] amine 4 mg 6-29 tablet by ity of tablet 00:00: mouth [place] 00 every 6 Medical (six) Branch hours as needed for Allergies or Runny nose. calcium/mag 2021-0 Yes [id number] 1{each} Take 1 [facility] nesium/zinc 6-29 Each by ity o f (CALCIUM-MA 00:00: mouth [place] GNESUIUM-ZI 00 daily. Medica l [place]) Branch 333-133-5 mg Tab benzonatate 2021-0 Yes [id number] 100mg Take 1 [facility] 100 mg 6-29 capsule by ity of capsule 00:00: mouth 3 [place] 00 (three) Medical times Branch daily as needed for Cough. nirmatrelvi 2021-0 Yes [id number] 3{tbl} Take 3 [facility] r-ritonavir 6-29 tablets by it y of (PAXLOVID, 00:00: mouth [place] EUA[place] 150 00 (two) Medical mg x 2- 100 times Branch mg tablet daily. chlorphenir 2021-0 Yes [id number] 4mg Take 1 [facility] amine 4 mg 6-29 tablet by ity of tablet 00:00: mouth [place] 00 every 6 Medical (six) Branch hours as needed for Allergies or Runny nose. calcium/mag 2021-0 Yes [id number] 1{each} Take 1 [facility] nesium/zinc 6-29 Each by ity o f (CALCIUM-MA 00:00: mouth [place] GNESUIUM-ZI 00 daily. Medica l [place]) Branch 333-133-5 mg Tab benzonatate 2021-0 Yes [id number] 100mg Take 1 [facility] 100 mg 6-29 capsule by ity of capsule 00:00: mouth 3 [place] 00 (three) Medical times Branch daily as needed for Cough. nirmatrelvi 2021-0 Yes [id number] 3{tbl} Take 3 [facility] r-ritonavir 6-29 tablets by it y of (PAXLOVID, 00:00: mouth [place] EUA[place] 150 00 (two) Medical mg x 2- 100 times Branch mg tablet daily. chlorphenir 2-0 Yes [id number] 4mg Take 1 [facility] amine 4 mg 6-29 tablet by ity of tablet 00:00: mouth [place] 00 every 6 Medical (six) Branch hours as needed for Allergies or Runny nose. calcium/mag 2021-0 Yes [id number] 1{each} Take 1 [facility] nesium/zinc 6-29 Each by ity o f (CALCIUM-MA 00:00: mouth [place] GNESUIUM-ZI 00 daily. [place]ica [place]) Branch 333-133-5 mg Tab benzonatate 2021-0 Yes [id number] 100mg Take 1 [facility] 100 mg 6-29 capsule by ity of capsule 00:00: mouth 3 [place] 00 (three) Medical times Branch daily as needed for Cough. nirmatrelvi 2021-0 Yes [id number] 3{tbl} Take 3 [facility] r-ritonavir 6-29 tablets by it y of (PAXLOVID, 00:00: mouth [place] EUA[place] 150 00 (two) Medical mg x 2- 100 times Branch mg tablet daily. chlorphenir 2021-0 Yes [id number] 4mg Take 1 [facility] amine 4 mg 6-29 tablet by ity of tablet 00:00: mouth [place] 00 every 6 Medical (six) Branch hours as needed for Allergies or Runny nose. calcium/mag 2021-0 Yes [id number] 1{each} Take 1 [facility] nesium/zinc 6-29 Each by ity o f (CALCIUM-MA 00:00: mouth [place] GNESUIUM-ZI 00 daily. Medica [place]) Branch 333-133-5 mg Tab benzonatate 2021-0 Yes [id number] 100mg Take 1 [facility] 100 mg 6-29 capsule by ity of capsule 00:00: mouth 3 [place] 00 (three) Medical times Branch daily as needed for Cough. nirmatrelvi 2021-0 Yes [id number] 3{tbl} Take 3 [facility] r-ritonavir 6-29 tablets by it y of (PAXLOVID, 00:00: mouth [place] EU[place] 150 00 (two) Medical mg x 2- 100 times Branch mg tablet daily. chlorphenir 2-0 Yes [id number] 4mg Take 1 [facility] amine 4 mg 6-29 tablet by ity of tablet 00:00: mouth [place] 00 every 6 Medical (six) Branch hours as needed for Allergies or Runny nose. calcium/mag 2021-0 Yes [id number] 1{each} Take 1 [facility] nesium/zinc 6-29 Each by ity o f (CALCIUM-MA 00:00: mouth [place] GNESUIUM-ZI 00 daily. Medica l [place]) Branch 333-133-5 mg Tab benzonatate Yes [id number] 100mg Take 1 [facility] 100 mg 6-29 capsule by ity of capsule 00:00: mouth 3 [place] 00 (three) Medical times Branch daily as needed for Cough. nirmatrelvi Yes [id number] 3{tbl} Take 3 [facility] r-ritonavir 6-29 tablets by it y of (PAXLOVID, 00:00: mouth [place] EU[place] 150 00 (two) Medical mg x 2- 100 times Branch mg tablet daily. chlorphenir Yes [id number] 4mg Take 1 [facility] amine 4 mg 6-29 tablet by ity of tablet 00:00: mouth [place] 00 every 6 Medical (six) Branch hours as needed for Allergies or Runny nose. calcium/mag Yes [id number] 1{each} Take 1 [facility] nesium/zinc 6-29 Each by ity o f (CALCIUM-MA 00:00: mouth [place] GNESUIUM-ZI 00 daily. Medica l [place]) Branch 333-133-5 mg Tab benzonatate Yes [id number] 100mg Take 1 [facility] 100 mg 6-29 capsule by ity of capsule 00:00: mouth 3 [place] 00 (three) Medical times Branch daily as needed for Cough. nirmatrelvi Yes [id number] 3{tbl} Take 3 [facility] r-ritonavir 6-29 tablets by it y of (PAXLOVID, 00:00: mouth 2 [place] EU[place],) 150 00 (two) Medical mg x 2- 100 times Branch mg tablet daily. chlorphenir 2021- No [id number] 4mg Take 1 [facility] amine 4 mg 6-29 - tablet by ity of tablet 00:00: 00:00 mouth [place] 00 :00 every 6 Medical (six) Branch hours as needed for Allergies or Runny nose. calcium/mag 2021- No [id number] 1{each} Take 1 [facility] nesium/zinc 6-29 09-23 Each by ity of (CALCIUM-MA 00:00: 00:00 mouth [place] GNESUIUM-ZI 00 :00 daily. Medica l [place]) Branch 333-133-5 mg Tab benzonatate 2021- No [id number] 100mg Take 1 [facility] 100 mg 11-08 capsule by ity of capsule 00:00: 00:00 mouth 3 [place] 00 :00 (three) Medical times Branch daily as needed for Cough. nirmatrelvi 2021- No [id number] 3{tbl} Take 3 [facility] r-ritonavir 11-08 tablets by i ty of (PAXLOVID, 00:00: 00:00 mouth 2 [place] EUA,) 150 00 :00 (two) Medical mg x 2- 100 times Branch mg tablet daily. chlorphenir 2021- No [id number] 4mg Take 1 [facility] amine 4 mg 11-08 tablet by ity of tablet 00:00: 00:00 mouth [place] 00 :00 every 6 Medical (six) Branch hours as needed for Allergies or Runny nose. calcium/mag 2021- No [id number] 1{each} Take 1 [facility] nesium/zinc 11-08 Each by ity of (CALCIUM-MA 00:00: 00:00 mouth [place] GNESUIUM-ZI 00 :00 daily. Medica l [place]) Branch 333-133-5 mg Tab benzonatate 2021- No [id number] 100mg Take 1 [facility] 100 mg 11-08 capsule by ity of capsule 00:00: 00:00 mouth 3 [place] 00 :00 (three) Medical times Branch daily as needed for Cough. nirmatrelvi 2021- No [id number] 3{tbl} Take 3 [facility] r-ritonavir 11-08 tablets by i ty of (PAXLOVID, 00:00: 00:00 mouth 2 [place] EUA,) 150 00 :00 (two) Medical mg x 2- 100 times Branch mg tablet daily. vitamin 2021- No [id number] 1{tbl} Take 1 [facility] D3-folic 11-0830 tablet by ity o f acid 125 00:00: 04:59 mouth [place] mcg (5,000 00 :00 daily for Medi lula unit)-1 mg 30 days. Branc h Tab mupirocin 2 Yes [id number] Apply to [facility] % ointment 6-15 area(s) 3 ity of 00:00: (three) [place] 00 times Medical daily. Branch mupirocin 2 2-0 Yes [id number] Apply to [facility] % ointment 6-15 area(s) 3 ity of 00:00: (three) [place] 00 times Medical daily. Branch mupirocin 2 2021-0 Yes [id number] Apply to [facility] % ointment 6-15 area(s) 3 ity of 00:00: (three) [place] 00 times Medical daily. Branch mupirocin 2 2021-0 Yes [id number] Apply to [facility] % ointment 6-15 area(s) 3 ity of 00:00: (three) [place] 00 times Medical daily. Branch mupirocin 2 2021-0 Yes [id number] Apply to [facility] % ointment 6-15 area(s) 3 ity of 00:00: (three) [place] 00 times Medical daily. Branch mupirocin 2 2021-0 Yes [id number] Apply to Univers % ointment 6-15 area(s) 3 ity of 00:00: (three) [place] 00 times Medical daily. Branch mupirocin 2 2021-0 Yes [id number] Apply to [facility] % ointment 6-15 area(s) 3 ity of 00:00: (three) [place] 00 times Medical daily. Branch mupirocin 2 2021-0 Yes [id number] Apply to Univers % ointment 6-15 area(s) 3 ity of 00:00: (three) [place] 00 times Medical daily. Branch mupirocin 2 2021-0 Yes [id number] Apply to Univers % ointment 6-15 area(s) 3 ity of 00:00: (three) [place] 00 times Medical daily. Branch mupirocin 2 2-0 Yes [id number] Apply to Univers % ointment 6-15 area(s) 3 ity of 00:00: (three) [place] 00 times Medical daily. Branch mupirocin 2 2-0 Yes [id number] Apply to Univers % ointment 6-15 area(s) 3 ity of 00:00: (three) [place] 00 times Medical daily. Branch mupirocin 2 2022-0 Yes [id number] Apply to Univers % ointment 6-15 area(s) 3 ity of 00:00: (three) [place] 00 times Medical daily. Branch mupirocin 2 2021-0 Yes [id number] Apply to Univers % ointment 6-15 area(s) 3 ity of 00:00: (three) [place] 00 times Medical daily. Branch mupirocin 2 2021-0 Yes [id number] Apply to Univers % ointment 6-15 area(s) 3 ity of 00:00: (three) [place] 00 times Medical daily. Branch mupirocin 2 2021-0 Yes [id number] Apply to Univers % ointment 6-15 area(s) 3 ity of 00:00: (three) [place] 00 times Medical daily. Branch mupirocin 2 2021-0 Yes [id number] Apply to [facility] % ointment 6-15 area(s) 3 ity of 00:00: (three) [place] 00 times Medical daily. Branch mupirocin 2 2021-0 Yes [id number] Apply to Univers % ointment 6-15 area(s) 3 ity of 00:00: (three) [place] 00 times Medical daily. Branch mupirocin 2 2021-0 Yes [id number] Apply to Univers % ointment 6-15 area(s) 3 ity of 00:00: (three) [place] 00 times Medical daily. Branch mupirocin 2 2021-0 Yes [id number] Apply to [facility] % ointment 6-15 area(s) 3 ity of 00:00: (three) [place] 00 times Medical daily. Branch mupirocin 2 2021-0 Yes [id number] Apply to Univers % ointment 6-15 area(s) 3 ity of 00:00: (three) [place] 00 times Medical daily. Branch mupirocin 2 2021-0 Yes [id number] Apply to [facility] % ointment 6-15 area(s) 3 ity of 00:00: (three) [place] 00 times Medical daily. Branch mupirocin 2 2021-0 Yes [id number] Apply to Univers % ointment 6-15 area(s) 3 ity of 00:00: (three) [place] 00 times Medical daily. Branch mupirocin 2 2022-0 Yes [id number] Apply to Univers % ointment 6-15 area(s) 3 ity of 00:00: (three) [place] 00 times Medical daily. Branch mupirocin 2 2-0 Yes [id number] Apply to Univers % ointment 6-15 area(s) 3 ity of 00:00: (three) [place] 00 times Medical daily. Branch mupirocin 2 2-0 Yes [id number] Apply to Univers % ointment 6-15 area(s) 3 ity of 00:00: (three) [place] 00 times Medical daily. Branch mupirocin 2 2-0 Yes [id number] Apply to Univers % ointment 6-15 area(s) 3 ity of 00:00: (three) [place] 00 times Medical daily. Branch mupirocin 2 2-0 Yes [id number] Apply to [facility] % ointment 6-15 area(s) 3 ity of 00:00: (three) [place] 00 times Medical daily. Branch mupirocin 2 2021-0 Yes [id number] Apply to [facility] % ointment 6-15 area(s) 3 ity of 00:00: (three) [place] 00 times Medical daily. Branch mupirocin 2 2-0 Yes [id number] Apply to Univers % ointment 6-15 area(s) 3 ity of 00:00: (three) [place] 00 times Medical daily. Branch mupirocin 2 2-0 Yes [id number] Apply to Univers % ointment 6-15 area(s) 3 ity of 00:00: (three) [place] 00 times Medical daily. Branch mupirocin 2 2-0 Yes [id number] Apply to Univers % ointment 6-15 area(s) 3 ity of 00:00: (three) [place] 00 times Medical daily. Branch mupirocin 2 2-0 Yes [id number] Apply to Univers % ointment 6-15 area(s) 3 ity of 00:00: (three) [place] 00 times Medical daily. Branch mupirocin 2 2-0 Yes [id number] Apply to Univers % ointment 6-15 area(s) 3 ity of 00:00: (three) [place] 00 times Medical daily. Branch mupirocin 2 2-0 Yes [id number] Apply to Univers % ointment 6-15 area(s) 3 ity of 00:00: (three) [place] 00 times Medical daily. Branch mupirocin 2 2-0 Yes [id number] Apply to Univers % ointment 6-15 area(s) 3 ity of 00:00: (three) [place] 00 times Medical daily. Branch mupirocin 2 2-0 Yes [id number] Apply to Univers % ointment 6-15 area(s) 3 ity of 00:00: (three) [place] 00 times Medical daily. Branch mupirocin 2 2-0 Yes [id number] Apply to Univers % ointment 6-15 area(s) 3 ity of 00:00: (three) [place] 00 times Medical daily. Branch mupirocin 2 2021-0 Yes [id number] Apply to Univers % ointment 6-15 area(s) 3 ity of 00:00: (three) [place] 00 times Medical daily. Branch mupirocin 2 2021-0 Yes [id number] Apply to Univers % ointment 6-15 area(s) 3 ity of 00:00: (three) [place] 00 times Medical daily. Branch mupirocin 2 2021-0 Yes [id number] Apply to [facility] % ointment 6-15 area(s) 3 ity of 00:00: (three) [place] 00 times Medical daily. Branch mupirocin 2 2-0 Yes [id number] Apply to Univers % ointment 6-15 area(s) 3 ity of 00:00: (three) [place] 00 times Medical daily. Branch mupirocin 2 2-0 Yes [id number] Apply to Univers % ointment 6-15 area(s) 3 ity of 00:00: (three) [place] 00 times Medical daily. Branch mupirocin 2 2-0 Yes [id number] Apply to Univers % ointment 6-15 area(s) 3 ity of 00:00: (three) [place] 00 times Medical daily. Branch mupirocin 2 2-0 Yes [id number] Apply to Univers % ointment 6-15 area(s) 3 ity of 00:00: (three) [place] 00 times Medical daily. Branch mupirocin 2 2022-0 Yes [id number] Apply to [facility] % ointment 6-15 area(s) 3 ity of 00:00: (three) [place] times Medical daily. Branch mupirocin 2 2022-0 Yes [id number] Apply to [facility] % ointment 6-15 area(s) 3 ity of 00:00: (three) [place] times Medical daily. Branch mupirocin 2 2022-0 Yes [id number] Apply to [facility] % ointment 6-15 area(s) 3 ity of 00:00: (three) [place] 00 times Medical daily. Branch mupirocin 2 2022-0 Yes [id number] Apply to [facility] % ointment 6-15 area(s) 3 ity of 00:00: (three) [place] times Medical daily. Branch mupirocin 2 2022-0 Yes [id number] Apply to [facility] % ointment 6-15 area(s) 3 ity of 00:00: (three) [place] times Medical daily. Branch mupirocin 2 2-0 Yes [id number] Apply to [facility] % ointment 6-15 area(s) 3 ity of 00:00: (three) [place] times Medical daily. Branch mupirocin 2 2-0 Yes [id number] Apply to [facility] % ointment 6-15 area(s) 3 ity of 00:00: (three) [place] times Medical daily. Branch mupirocin 2 2022-0 Yes [id number] Apply to [facility] % ointment 6-15 area(s) 3 ity of 00:00: (three) [place] times Medical daily. Branch mupirocin 2 2022-0 Yes [id number] Apply to [facility] % ointment 6-15 area(s) 3 ity of 00:00: (three) [place] times Medical daily. Branch mupirocin 2 2022-0 Yes [id number] Apply to [facility] % ointment 6-15 area(s) 3 ity of 00:00: (three) [place] 00 times Medical daily. Branch mupirocin 2 2022-0 Yes [id number] Apply to [facility] % ointment 6-15 area(s) 3 ity of 00:00: (three) [place] 00 times Medical daily. Branch mupirocin 2 2-0 Yes [id number] Apply to [facility] % ointment 6-15 area(s) 3 ity of 00:00: (three) [place] 00 times Medical daily. Branch mupirocin 2 2-0 Yes [id number] Apply to [facility] % ointment 6-15 area(s) 3 ity of 00:00: (three) [place] 00 times Medical daily. Branch mupirocin 2 2-0 Yes [id number] Apply to [facility] % ointment 6-15 area(s) 3 ity of 00:00: (three) [place] 00 times Medical daily. Branch mupirocin 2 2-0 Yes [id number] Apply to [facility] % ointment 6-15 area(s) 3 ity of 00:00: (three) [place] 00 times Medical daily. Branch mupirocin 2 2-0 Yes [id number] Apply to [facility] % ointment 6-15 area(s) 3 ity of 00:00: (three) [place] 00 times Medical daily. Branch mupirocin 2 2021-0 Yes [id number] Apply to [facility] % ointment 6-15 area(s) 3 ity of 00:00: (three) [place] 00 times Medical daily. Branch mupirocin 2 2-0 Yes [id number] Apply to [facility] % ointment 6-15 area(s) 3 ity of 00:00: (three) [place] 00 times Medical daily. Branch mupirocin 2 2-0 Yes [id number] Apply to [facility] % ointment 6-15 area(s) 3 ity of 00:00: (three) [place] 00 times Medical daily. Branch mupirocin 2 2-0 Yes [id number] Apply to [facility] % ointment 6-15 area(s) 3 ity of 00:00: (three) [place] 00 times Medical daily. Branch mupirocin 2 2-0 Yes [id number] Apply to [facility] % ointment 6-15 area(s) 3 ity of 00:00: (three) [place] 00 times Medical daily. Branch mupirocin 2 2-0 Yes [id number] Apply to [facility] % ointment 6-15 area(s) 3 ity of 00:00: (three) [place] 00 times Medical daily. Branch mupirocin 2 2-0 Yes [id number] Apply to [facility] % ointment 6-15 area(s) 3 ity of 00:00: (three) [place] 00 times Medical daily. Branch mupirocin 2 2-0 Yes [id number] Apply to [facility] % ointment 6-15 area(s) 3 ity of 00:00: (three) [place] 00 times Medical daily. Branch mupirocin 2 2-0 Yes [id number] Apply to [facility] % ointment 6-15 area(s) 3 ity of 00:00: (three) [place] 00 times Medical daily. Branch mupirocin 2 2-0 Yes [id number] Apply to [facility] % ointment 6-15 area(s) 3 ity of 00:00: (three) [place] 00 times Medical daily. Branch mupirocin 2 2-0 Yes [id number] Apply to [facility] % ointment 6-15 area(s) 3 ity of 00:00: (three) [place] 00 times Medical daily. Branch mupirocin 2 2-0 Yes [id number] Apply to [facility] % ointment 6-15 area(s) 3 ity of 00:00: (three) [place] 00 times Medical daily. Branch mupirocin 2 2-0 Yes [id number] Apply to [facility] % ointment 6-15 area(s) 3 ity of 00:00: (three) [place] 00 times Medical daily. Branch mupirocin 2 2-0 Yes [id number] Apply to [facility] % ointment 6-15 area(s) 3 ity of 00:00: (three) [place] 00 times Medical daily. Branch mupirocin 2 2-0 Yes [id number] Apply to [facility] % ointment 6-15 area(s) 3 ity of 00:00: (three) [place] 00 times Medical daily. Branch mupirocin 2 2-0 Yes [id number] Apply to [facility] % ointment 6-15 area(s) 3 ity of 00:00: (three) [place] 00 times Medical daily. Branch mupirocin 2 2-0 Yes [id number] Apply to [facility] % ointment 6-15 area(s) 3 ity of 00:00: (three) [place] 00 times Medical daily. Branch mupirocin 2 2-0 Yes [id number] Apply to [facility] % ointment 6-15 area(s) 3 ity of 00:00: (three) [place] 00 times Medical daily. Branch mupirocin 2 2-0 Yes [id number] Apply to [facility] % ointment 6-15 area(s) 3 ity of 00:00: (three) [place] 00 times Medical daily. Branch mupirocin 2 2021-0 Yes [id number] Apply to [facility] % ointment 6-15 area(s) 3 ity of 00:00: (three) [place] 00 times Medical daily. Branch mupirocin 2 2021-0 Yes [id number] Apply to [facility] % ointment 6-15 area(s) 3 ity of 00:00: (three) [place] 00 times Medical daily. Branch mupirocin 2 2021-0 Yes [id number] Apply to [facility] % ointment 6-15 area(s) 3 ity of 00:00: (three) [place] 00 times Medical daily. Branch mupirocin 2 2021-0 Yes [id number] Apply to [facility] % ointment 6-15 area(s) 3 ity of 00:00: (three) [place] 00 times Medical daily. Branch mupirocin 2 2021-0 Yes [id number] Apply to [facility] % ointment 6-15 area(s) 3 ity of 00:00: (three) [place] 00 times Medical daily. Branch mupirocin 2 2021-0 Yes [id number] Apply to [facility] % ointment 6-15 area(s) 3 ity of 00:00: (three) [place] 00 times Medical daily. Branch mupirocin 2 2-0 Yes [id number] Apply to [facility] % ointment 6-15 area(s) 3 ity of 00:00: (three) [place] 00 times Medical daily. Branch isosorbide 2-0 Yes [id number] 60mg Take 1 U nivers mononitrate 5-05 tablet by ity of 60 mg 24 hr 00:00: mouth [place] tablet 00 daily. Medical Branch isosorbide 2022-0 Yes [id number] 60mg Take 1 U nivers mononitrate 5-05 tablet by ity of 60 mg 24 hr 00:00: mouth [place] tablet 00 daily. Medical Branch isosorbide 2021-0 Yes [id number] 60mg Take 1 U nivers mononitrate 5-05 tablet by ity of 60 mg 24 hr 00:00: mouth [place] tablet 00 daily. Medical Branch isosorbide 2021-0 Yes [id number] 60mg Take 1 U nivers mononitrate 5-05 tablet by ity of 60 mg 24 hr 00:00: mouth [place] tablet 00 daily. Medical Branch isosorbide 2021-0 Yes [id number] 60mg Take 1 U nivers mononitrate 5-05 tablet by ity of 60 mg 24 hr 00:00: mouth [place] tablet 00 daily. Medical Branch isosorbide 2021-0 Yes [id number] 60mg Take 1 U nivers mononitrate 5-05 tablet by ity of 60 mg 24 hr 00:00: mouth [place] tablet 00 daily. Medical Branch isosorbide 2021-0 Yes [id number] 60mg Take 1 U nivers mononitrate 5-05 tablet by ity of 60 mg 24 hr 00:00: mouth [place] tablet 00 daily. Medical Branch isosorbide 2021-0 Yes [id number] 60mg Take 1 U nivers mononitrate 5-05 tablet by ity of 60 mg 24 hr 00:00: mouth [place] tablet 00 daily. Medical Branch isosorbide 2021-0 Yes [id number] 60mg Take 1 U nivers mononitrate 5-05 tablet by ity of 60 mg 24 hr 00:00: mouth [place] tablet 00 daily. Medical Branch isosorbide 2021-0 Yes [id number] 60mg Take 1 U nivers mononitrate 5-05 tablet by ity of 60 mg 24 hr 00:00: mouth [place] tablet 00 daily. Medical Branch isosorbide 2021-0 Yes [id number] 60mg Take 1 U nivers mononitrate 5-05 tablet by ity of 60 mg 24 hr 00:00: mouth [place] tablet 00 daily. Medical Branch isosorbide 2021-0 Yes [id number] 60mg Take 1 U nivers mononitrate 5-05 tablet by ity of 60 mg 24 hr 00:00: mouth [place] tablet 00 daily. Medical Branch isosorbide 2022-0 Yes [id number] 60mg Take 1 U nivers mononitrate 5-05 tablet by ity of 60 mg 24 hr 00:00: mouth [place] tablet 00 daily. [facility] isosorbide 2021-0 Yes [id number] 60mg Take 1 [facility] mononitrate 5-05 tablet by ity of 60 mg 24 hr 00:00: mouth [place] tablet 00 daily. [facility] isosorbide 2021-0 Yes [id number] 60mg Take 1 [facility] mononitrate 5-05 tablet by ity of 60 mg 24 hr 00:00: mouth [place] tablet 00 daily. [facility] isosorbide 2021-0 Yes [id number] 60mg Take 1 [facility] mononitrate 5-05 tablet by ity of 60 mg 24 hr 00:00: mouth [place] tablet 00 daily. [facility] isosorbide 2021-0 Yes [id number] 60mg Take 1 [facility] mononitrate 5-05 tablet by ity of 60 mg 24 hr 00:00: mouth [place] tablet 00 daily. [facility] isosorbide 2021-0 Yes [id number] 60mg Take 1 [facility] mononitrate 5-05 tablet by ity of 60 mg 24 hr 00:00: mouth [place] tablet 00 daily. [facility] isosorbide 2021-0 Yes [id number] 60mg Take 1 [facility] mononitrate 5-05 tablet by ity of 60 mg 24 hr 00:00: mouth [place] tablet 00 daily. [facility] isosorbide 2021-0 Yes [id number] 60mg Take 1 [facility] mononitrate 5-05 tablet by ity of 60 mg 24 hr 00:00: mouth [place] tablet 00 daily. [facility] isosorbide 2021-0 Yes [id number] 60mg Take 1 [facility] mononitrate 5-05 tablet by ity of 60 mg 24 hr 00:00: mouth [place] tablet 00 daily. [facility] isosorbide 2021-0 Yes [id number] 60mg Take 1 [facility] mononitrate 5-05 tablet by ity of 60 mg 24 hr 00:00: mouth [place] tablet 00 daily. [facility] isosorbide 2021-0 Yes [id number] 60mg Take 1 [facility] mononitrate 5-05 tablet by ity of 60 mg 24 hr 00:00: mouth [place] tablet 00 daily. [facility] isosorbide 2022-0 Yes [id number] 60mg Take 1 [facility] mononitrate 5-05 tablet by ity of 60 mg 24 hr 00:00: mouth [place] tablet 00 daily. [facility] isosorbide 2021-0 Yes [id number] 60mg Take 1 [facility] mononitrate 5-05 tablet by ity of 60 mg 24 hr 00:00: mouth [place] tablet 00 daily. [facility] isosorbide 2021-0 Yes [id number] 60mg Take 1 [facility] mononitrate 5-05 tablet by ity of 60 mg 24 hr 00:00: mouth [place] tablet 00 daily. [facility] isosorbide 2021-0 Yes [id number] 60mg Take 1 [facility] mononitrate 5-05 tablet by ity of 60 mg 24 hr 00:00: mouth [place] tablet 00 daily. [facility] isosorbide 2021-0 Yes [id number] 60mg Take 1 [facility] mononitrate 5-05 tablet by ity of 60 mg 24 hr 00:00: mouth [place] tablet 00 daily. [facility] isosorbide 2021-0 Yes [id number] 60mg Take 1 [facility] mononitrate 5-05 tablet by ity of 60 mg 24 hr 00:00: mouth [place] tablet 00 daily. [facility] isosorbide 2021-0 Yes [id number] 60mg Take 1 [facility] mononitrate 5-05 tablet by ity of 60 mg 24 hr 00:00: mouth [place] tablet 00 daily. [facility] isosorbide 2021-0 Yes [id number] 60mg Take 1 [facility] mononitrate 5-05 tablet by ity of 60 mg 24 hr 00:00: mouth [place] tablet 00 daily. [facility] isosorbide 2021-0 Yes [id number] 60mg Take 1 [facility] mononitrate 5-05 tablet by ity of 60 mg 24 hr 00:00: mouth [place] tablet 00 daily. [facility] isosorbide 2-0 Yes [id number] 60mg Take 1 [facility] mononitrate 5-05 tablet by ity of 60 mg 24 hr 00:00: mouth [place] tablet 00 daily. [facility] isosorbide 2-0 Yes [id number] 60mg Take 1 [facility] mononitrate 5-05 tablet by ity of 60 mg 24 hr 00:00: mouth [place] tablet 00 daily. [facility] isosorbide 2-0 Yes [id number] 60mg Take 1 [facility] mononitrate 5-05 tablet by ity of 60 mg 24 hr 00:00: mouth [place] tablet 00 daily. [facility] isosorbide 2-0 Yes [id number] 60mg Take 1 [facility] mononitrate 5-05 tablet by ity of 60 mg 24 hr 00:00: mouth [place] tablet 00 daily. [facility] isosorbide 2-0 Yes [id number] 60mg Take 1 [facility] mononitrate 5-05 tablet by ity of 60 mg 24 hr 00:00: mouth [place] tablet 00 daily. [facility] isosorbide 2-0 Yes [id number] 60mg Take 1 [facility] mononitrate 5-05 tablet by ity of 60 mg 24 hr 00:00: mouth [place] tablet 00 daily. [facility] isosorbide 2-0 Yes [id number] 60mg Take 1 [facility] mononitrate 5-05 tablet by ity of 60 mg 24 hr 00:00: mouth [place] tablet 00 daily. [facility] isosorbide 2-0 Yes [id number] 60mg Take 1 [facility] mononitrate 5-05 tablet by ity of 60 mg 24 hr 00:00: mouth [place] tablet 00 daily. [facility] isosorbide 2-0 Yes [id number] 60mg Take 1 [facility] mononitrate 5-05 tablet by ity of 60 mg 24 hr 00:00: mouth [place] tablet 00 daily. [facility] isosorbide 2-0 Yes [id number] 60mg Take 1 [facility] mononitrate 5-05 tablet by ity of 60 mg 24 hr 00:00: mouth [place] tablet 00 daily. [facility] isosorbide 2-0 Yes [id number] 60mg Take 1 [facility] mononitrate 5-05 tablet by ity of 60 mg 24 hr 00:00: mouth [place] tablet 00 daily. [facility] isosorbide 2-0 Yes [id number] 60mg Take 1 [facility] mononitrate 5-05 tablet by ity of 60 mg 24 hr 00:00: mouth [place] tablet 00 daily. [facility] isosorbide 2-0 Yes [id number] 60mg Take 1 [facility] mononitrate 5-05 tablet by ity of 60 mg 24 hr 00:00: mouth [place] tablet 00 daily. [facility] isosorbide 2-0 Yes [id number] 60mg Take 1 [facility] mononitrate 5-05 tablet by ity of 60 mg 24 hr 00:00: mouth [place] tablet 00 daily. [facility] isosorbide 2021-0 Yes [id number] 60mg Take 1 [facility] mononitrate 5-05 tablet by ity of 60 mg 24 hr 00:00: mouth [place] tablet 00 daily. [facility] isosorbide 2-0 Yes [id number] 60mg Take 1 [facility] mononitrate 5-05 tablet by ity of 60 mg 24 hr 00:00: mouth [place] tablet 00 daily. [facility] isosorbide 2021-0 Yes [id number] 60mg Take 1 [facility] mononitrate 5-05 tablet by ity of 60 mg 24 hr 00:00: mouth [place] tablet 00 daily. [facility] isosorbide 2021-0 Yes [id number] 60mg Take 1 [facility] mononitrate 5-05 tablet by ity of 60 mg 24 hr 00:00: mouth [place] tablet 00 daily. [facility] isosorbide 2021-0 Yes [id number] 60mg Take 1 [facility] mononitrate 5-05 tablet by ity of 60 mg 24 hr 00:00: mouth [place] tablet 00 daily. [facility] isosorbide 2-0 Yes [id number] 60mg Take 1 [facility] mononitrate 5-05 tablet by ity of 60 mg 24 hr 00:00: mouth [place] tablet 00 daily. [facility] isosorbide 2-0 Yes [id number] 60mg Take 1 [facility] mononitrate 5-05 tablet by ity of 60 mg 24 hr 00:00: mouth [place] tablet 00 daily. [facility] isosorbide 2-0 Yes [id number] 60mg Take 1 [facility] mononitrate 5-05 tablet by ity of 60 mg 24 hr 00:00: mouth [place] tablet 00 daily. [facility] isosorbide 2-0 Yes [id number] 60mg Take 1 [facility] mononitrate 5-05 tablet by ity of 60 mg 24 hr 00:00: mouth [place] tablet 00 daily. [facility] isosorbide 2-0 Yes [id number] 60mg Take 1 [facility] mononitrate 5-05 tablet by ity of 60 mg 24 hr 00:00: mouth [place] tablet 00 daily. [facility] isosorbide 2021-0 Yes [id number] 60mg Take 1 [facility] mononitrate 5-05 tablet by ity of 60 mg 24 hr 00:00: mouth [place] tablet 00 daily. [facility] isosorbide 2-0 Yes [id number] 60mg Take 1 [facility] mononitrate 5-05 tablet by ity of 60 mg 24 hr 00:00: mouth [place] tablet 00 daily. [facility] isosorbide 2021-0 Yes [id number] 60mg Take 1 [facility] mononitrate 5-05 tablet by ity of 60 mg 24 hr 00:00: mouth [place] tablet 00 daily. [facility] isosorbide 2021-0 Yes [id number] 60mg Take 1 [facility] mononitrate 5-05 tablet by ity of 60 mg 24 hr 00:00: mouth [place] tablet 00 daily. [facility] isosorbide 2021-0 Yes [id number] 60mg Take 1 [facility] mononitrate 5-05 tablet by ity of 60 mg 24 hr 00:00: mouth [place] tablet 00 daily. [facility] isosorbide 2021-0 Yes [id number] 60mg Take 1 [facility] mononitrate 5-05 tablet by ity of 60 mg 24 hr 00:00: mouth [place] tablet 00 daily. [facility] isosorbide 2021-0 Yes [id number] 60mg Take 1 [facility] mononitrate 5-05 tablet by ity of 60 mg 24 hr 00:00: mouth [place] tablet 00 daily. [facility] isosorbide 2021-0 Yes [id number] 60mg Take 1 [facility] mononitrate 5-05 tablet by ity of 60 mg 24 hr 00:00: mouth [place] tablet 00 daily. [facility] isosorbide 2021-0 Yes [id number] 60mg Take 1 [facility] mononitrate 5-05 tablet by ity of 60 mg 24 hr 00:00: mouth [place] tablet 00 daily. [facility] isosorbide 2-0 3- No [id number] 60mg Take 1 [facility] mononitrate 5-05 07-19 tablet by it y of 60 mg 24 hr 00:00: 00:00 [facility] [place] 00 :00 daily. [facility] isosorbide 2-0 2023- No [id number] 60mg Take 1 [facility] mononitrate 5-05 07-19 tablet by it y of 60 mg 24 hr 00:00: 00:[place] [facility] [place] 00 :00 daily. [facility] isosorbide 2022- No [id number] 60mg Take 1 [facility] mononitrate 5-05 07-19 tablet by it y of 60 mg 24 hr 00:00: 00:[place] 00 :00 daily. [facility] isosorbide 2022- No [id number] 60mg Take 1 [facility] mononitrate 5-05 07-19 tablet by it y of 60 mg 24 hr 00:00: 00:[place] 00 :00 daily. [facility] budesonide- Yes [id number] 2{puff} Inhale 2 [facility] formoteroL 4-26 Puffs 2 ity of (SYMBICORT) 00:00: (two) [place] 160-4.5 00 times Medical mcg/actuati daily. Branch on inhaler fluticasone Yes [id number] 1{spray Use 1 [facility] propionate 4-26 } [place] in ity o f 50 00:00: each [place] mcg/actuati 00 nostril 2 Med ical on nasal (two) Branch spray times daily. EPINEPHrine Yes ADMINISTER [facility] 0.3 mg/0.3 4-26 0.3 ML IN ity of mL 00:00: THE MUSCLE [place] injection 00 1 TIME NOW Medi lula FOR 1 DOSE Branch budesonide- Yes [id number] 2{puff} Inhale 2 [facility] formoteroL 4-26 Puffs 2 ity of (SYMBICORT) 00:00: (two) [place] 160-4.5 00 times Medical mcg/actuati daily. Branch on inhaler fluticasone Yes [id number] 1{spray Use 1 [facility] propionate 4-26 } [place] in ity o f 50 00:00: each [place] mcg/actuati 00 nostril 2 Med ical on nasal (two) Branch spray times daily. EPINEPHrine Yes ADMINISTER [facility] 0.3 mg/0.3 4-26 0.3 ML IN ity of mL 00:00: THE MUSCLE [place] injection 00 1 TIME NOW Medi lula FOR 1 DOSE Branch budesonide- Yes [id number] 2{puff} Inhale 2 [facility] formoteroL 4-26 Puffs 2 ity of (SYMBICORT) 00:00: (two) [place] 160-4.5 00 times Medical mcg/actuati daily. Branch on inhaler fluticasone Yes [id number] 1{spray Use 1 [facility] propionate 4-26 } [place] in ity o f 50 00:00: each [place] mcg/actuati 00 nostril 2 Med ical on nasal (two) Branch spray times daily. EPINEPHrine Yes ADMINISTER [facility] 0.3 mg/0.3 4-26 0.3 ML IN ity of mL 00:00: THE MUSCLE [place] injection 00 1 TIME NOW Medi lula FOR 1 DOSE Branch budesonide- Yes [id number] 2{puff} Inhale 2 [facility] formoteroL 4-26 Puffs 2 ity of (SYMBICORT) 00:00: (two) [place] 160-4.5 00 times Medical mcg/actuati daily. Branch on inhaler fluticasone Yes [id number] 1{spray Use 1 [facility] propionate 4-26 } [place] in ity o f 50 00:00: each [place] mcg/actuati 00 nostril 2 Med ical on nasal (two) Branch spray times daily. EPINEPHrine Yes ADMINISTER [facility] 0.3 mg/0.3 4-26 0.3 ML IN ity of mL 00:00: THE MUSCLE [place] injection 00 1 TIME NOW Medi lula FOR 1 DOSE Branch budesonide- Yes [id number] 2{puff} Inhale 2 [facility] formoteroL 4-26 Puffs 2 ity of (SYMBICORT) 00:00: (two) [place] 160-4.5 00 times Medical mcg/actuati daily. Branch on inhaler fluticasone Yes [id number] 1{spray Use 1 [facility] propionate 4-26 } [place] in ity o f 50 00:00: each [place] mcg/actuati 00 nostril 2 Med ical on nasal (two) Branch spray times daily. EPINEPHrine Yes ADMINISTER [facility] 0.3 mg/0.3 4-26 0.3 ML IN ity of mL 00:00: THE MUSCLE [place] injection 00 1 TIME NOW Medi lula FOR 1 DOSE Branch budesonide- 2021-0 Yes [id number] 2{puff} Inhale 2 [facility] formoteroL 4-26 Puffs 2 ity of (SYMBICORT) 00:00: (two) [place] 160-4.5 00 times Medical mcg/actuati daily. Branch on inhaler fluticasone 2021-0 Yes [id number] 1{spray Use 1 [facility] propionate 4-26 } [place] in ity o f 50 00:00: each [place] mcg/actuati 00 nostril 2 Med ical on nasal (two) Branch spray times daily. EPINEPHrine 2021-0 Yes ADMINISTER [facility] 0.3 mg/0.3 4-26 0.3 ML IN ity of mL 00:00: THE MUSCLE [place] injection 00 1 TIME NOW Medi lula FOR 1 DOSE Branch budesonide- 0 Yes [id number] 2{puff} Inhale 2 [facility] formoteroL 4-26 Puffs 2 ity of (SYMBICORT) 00:00: (two) [place] 160-4.5 00 times Medical mcg/actuati daily. Branch on inhaler fluticasone 2021-0 Yes [id number] 1{spray Use 1 [facility] propionate 4-26 } [place] in ity o f 50 00:00: each [place] mcg/actuati 00 nostril 2 Med ical on nasal (two) Branch spray times daily. EPINEPHrine 2021-0 Yes ADMINISTER [facility] 0.3 mg/0.3 4-26 0.3 ML IN ity of mL 00:00: THE MUSCLE [place] injection 00 1 TIME NOW Medi lula FOR 1 DOSE Branch budesonide- 2021-0 Yes [id number] 2{puff} Inhale 2 [facility] formoteroL 4-26 Puffs 2 ity of (SYMBICORT) 00:00: (two) [place] 160-4.5 00 times Medical mcg/actuati daily. Branch on inhaler fluticasone 2021-0 Yes [id number] 1{spray Use 1 [facility] propionate 4-26 } [place] in ity o f 50 00:00: each [place] mcg/actuati 00 nostril 2 Med ical on nasal (two) Branch spray times daily. EPINEPHrine 2021-0 Yes ADMINISTER [facility] 0.3 mg/0.3 4-26 0.3 ML IN ity of mL 00:00: THE MUSCLE [place] injection 00 1 TIME NOW Medi lula FOR 1 DOSE Branch budesonide- 2021-0 Yes [id number] 2{puff} Inhale 2 [facility] formoteroL 4-26 Puffs 2 ity of (SYMBICORT) 00:00: (two) [place] 160-4.5 00 times Medical mcg/actuati daily. Branch on inhaler fluticasone 2021-0 Yes [id number] 1{spray Use 1 [facility] propionate 4-26 } [place] in ity o f 50 00:00: each [place] mcg/actuati 00 nostril 2 Med ical on nasal (two) Branch spray times daily. EPINEPHrine 2021-0 Yes ADMINISTER [facility] 0.3 mg/0.3 4-26 0.3 ML IN ity of mL 00:00: THE MUSCLE [place] injection 00 1 TIME NOW Medi lula FOR 1 DOSE Branch budesonide- 2021-0 Yes [id number] 2{puff} Inhale 2 [facility] formoteroL 4-26 Puffs 2 ity of (SYMBICORT) 00:00: (two) [place] 160-4.5 00 times Medical mcg/actuati daily. Branch on inhaler fluticasone 2021-0 Yes [id number] 1{spray Use 1 [facility] propionate 4-26 } [place] in ity o f 50 00:00: each [place] mcg/actuati 00 nostril 2 Med ical on nasal (two) Branch spray times daily. EPINEPHrine 2021-0 Yes ADMINISTER [facility] 0.3 mg/0.3 4-26 0.3 ML IN ity of mL 00:00: THE MUSCLE [place] injection 00 1 TIME NOW Medi lula FOR 1 DOSE Branch budesonide- 2021-0 Yes [id number] 2{puff} Inhale 2 [facility] formoteroL 4-26 Puffs 2 ity of (SYMBICORT) 00:00: (two) [place] 160-4.5 00 times Medical mcg/actuati daily. Branch on inhaler fluticasone 2021-0 Yes [id number] 1{spray Use 1 [facility] propionate 4-26 } [place] in ity o f 50 00:00: each [place] mcg/actuati 00 nostril 2 Med ical on nasal (two) Branch spray times daily. EPINEPHrine 2021-0 Yes ADMINISTER [facility] 0.3 mg/0.3 4-26 0.3 ML IN ity of mL 00:00: THE MUSCLE [place] injection 00 1 TIME NOW Medi lula FOR 1 DOSE Branch budesonide- 2021- Yes [id number] 2{puff} Inhale 2 [facility] formoteroL 4-26 Puffs 2 ity of (SYMBICORT) 00:00: (two) [place] 160-4.5 00 times Medical mcg/actuati daily. Branch on inhaler fluticasone 2021- Yes [id number] 1{spray Use 1 [facility] propionate 4-26 } [place] in ity o f 50 00:00: each [place] mcg/actuati 00 nostril 2 Med ical on nasal (two) Branch spray times daily. EPINEPHrine 2021- Yes ADMINISTER [facility] 0.3 mg/0.3 4-26 0.3 ML IN ity of mL 00:00: THE MUSCLE [place] injection 00 1 TIME NOW Medi lula FOR 1 DOSE Branch budesonide- Yes [id number] 2{puff} Inhale 2 [facility] formoteroL 4-26 Puffs 2 ity of (SYMBICORT) 00:00: (two) [place] 160-4.5 00 times Medical mcg/actuati daily. Branch on inhaler fluticasone Yes [id number] 1{spray Use 1 [facility] propionate 4-26 } [place] in ity o f 50 00:00: each [place] mcg/actuati 00 nostril 2 Med ical on nasal (two) Branch spray times daily. EPINEPHrine 2021- Yes ADMINISTER [facility] 0.3 mg/0.3 4-26 0.3 ML IN ity of mL 00:00: THE MUSCLE [place] injection 00 1 TIME NOW Medi lula FOR 1 DOSE Branch budesonide- 0 Yes [id number] 2{puff} Inhale 2 [facility] formoteroL 4-26 Puffs 2 ity of (SYMBICORT) 00:00: (two) [place] 160-4.5 00 times Medical mcg/actuati daily. Branch on inhaler fluticasone Yes [id number] 1{spray Use 1 [facility] propionate 4-26 } [place] in ity o f 50 00:00: each [place] mcg/actuati 00 nostril 2 Med ical on nasal (two) Branch spray times daily. EPINEPHrine 2021-0 Yes ADMINISTER [facility] 0.3 mg/0.3 4-26 0.3 ML IN ity of mL 00:00: THE MUSCLE [place] injection 00 1 TIME NOW Medi lula FOR 1 DOSE Branch budesonide- 0 Yes [id number] 2{puff} Inhale 2 [facility] formoteroL 4-26 Puffs 2 ity of (SYMBICORT) 00:00: (two) [place] 160-4.5 00 times Medical mcg/actuati daily. Branch on inhaler fluticasone 0 Yes [id number] 1{spray Use 1 [facility] propionate 4-26 } [place] in ity o f 50 00:00: each [place] mcg/actuati 00 nostril 2 Med ical on nasal (two) Branch spray times daily. EPINEPHrine Yes ADMINISTER [facility] 0.3 mg/0.3 4-26 0.3 ML IN ity of mL 00:00: THE MUSCLE [place] injection 00 1 TIME NOW Medi lula FOR 1 DOSE Branch budesonide- 0 Yes [id number] 2{puff} Inhale 2 [facility] formoteroL 4-26 Puffs 2 ity of (SYMBICORT) 00:00: (two) [place] 160-4.5 00 times Medical mcg/actuati daily. Branch on inhaler fluticasone 0 Yes [id number] 1{spray Use 1 [facility] propionate 4-26 } [place] in ity o f 50 00:00: each [place] mcg/actuati 00 nostril 2 Med ical on nasal (two) Branch spray times daily. EPINEPHrine 0 Yes ADMINISTER [facility] 0.3 mg/0.3 4-26 0.3 ML IN ity of mL 00:00: THE MUSCLE [place] injection 00 1 TIME NOW Medi lula FOR 1 DOSE Branch budesonide- 2021-0 Yes [id number] 2{puff} Inhale 2 [facility] formoteroL 4-26 Puffs 2 ity of (SYMBICORT) 00:00: (two) [place] 160-4.5 00 times Medical mcg/actuati daily. Branch on inhaler fluticasone 2021-0 Yes [id number] 1{spray Use 1 [facility] propionate 4-26 } [place] in ity o f 50 00:00: each [place] mcg/actuati 00 nostril 2 Med ical on nasal (two) Branch spray times daily. EPINEPHrine 2022-0 Yes ADMINISTER [facility] 0.3 mg/0.3 4-26 0.3 ML IN ity of mL 00:00: THE MUSCLE [place] injection 00 1 TIME NOW Medi lula FOR 1 DOSE Branch budesonide- 0 Yes [id number] 2{puff} Inhale 2 [facility] formoteroL 4-26 Puffs 2 ity of (SYMBICORT) 00:00: (two) [place] 160-4.5 00 times Medical mcg/actuati daily. Branch on inhaler fluticasone Yes [id number] 1{spray Use 1 [facility] propionate 4-26 } [place] in ity o f 50 00:00: each [place] mcg/actuati 00 nostril 2 Med ical on nasal (two) Branch spray times daily. EPINEPHrine Yes ADMINISTER [facility] 0.3 mg/0.3 4-26 0.3 ML IN ity of mL 00:00: THE MUSCLE [place] injection 00 1 TIME NOW Medi lula FOR 1 DOSE Branch budesonide- Yes [id number] 2{puff} Inhale 2 [facility] formoteroL 4-26 Puffs 2 ity of (SYMBICORT) 00:00: (two) [place] 160-4.5 00 times Medical mcg/actuati daily. Branch on inhaler fluticasone Yes [id number] 1{spray Use 1 [facility] propionate 4-26 } [place] in ity o f 50 00:00: each [place] mcg/actuati 00 nostril 2 Med ical on nasal (two) Branch spray times daily. EPINEPHrine 2021- Yes ADMINISTER [facility] 0.3 mg/0.3 4-26 0.3 ML IN ity of mL 00:00: THE MUSCLE [place] injection 00 1 TIME NOW Medi lula FOR 1 DOSE Branch budesonide- 0 Yes [id number] 2{puff} Inhale 2 [facility] formoteroL 4-26 Puffs 2 ity of (SYMBICORT) 00:00: (two) [place] 160-4.5 00 times Medical mcg/actuati daily. Branch on inhaler fluticasone 2021-0 Yes [id number] 1{spray Use 1 [facility] propionate 4-26 } [place] in ity o f 50 00:00: each [place] mcg/actuati 00 nostril 2 Med ical on nasal (two) Branch spray times daily. EPINEPHrine Yes ADMINISTER [facility] 0.3 mg/0.3 4-26 0.3 ML IN ity of mL 00:00: THE MUSCLE [place] injection 00 1 TIME NOW Medi lula FOR 1 DOSE Branch budesonide- 0 Yes [id number] 2{puff} Inhale 2 [facility] formoteroL 4-26 Puffs 2 ity of (SYMBICORT) 00:00: (two) [place] 160-4.5 00 times Medical mcg/actuati daily. Branch on inhaler fluticasone 2021-0 Yes [id number] 1{spray Use 1 [facility] propionate 4-26 } [place] in ity o f 50 00:00: each [place] mcg/actuati 00 nostril 2 Med ical on nasal (two) Branch spray times daily. EPINEPHrine Yes ADMINISTER [facility] 0.3 mg/0.3 4-26 0.3 ML IN ity of mL 00:00: THE MUSCLE [place] injection 00 1 TIME NOW Medi lula FOR 1 DOSE Branch budesonide- 0 Yes [id number] 2{puff} Inhale 2 [facility] formoteroL 4-26 Puffs 2 ity of (SYMBICORT) 00:00: (two) [place] 160-4.5 00 times Medical mcg/actuati daily. Branch on inhaler fluticasone Yes [id number] 1{spray Use 1 [facility] propionate 4-26 } [place] in ity o f 50 00:00: each [place] mcg/actuati 00 nostril 2 Med ical on nasal (two) Branch spray times daily. EPINEPHrine 0 Yes ADMINISTER [facility] 0.3 mg/0.3 4-26 0.3 ML IN ity of mL 00:00: THE MUSCLE [place] injection 00 1 TIME NOW Medi lula FOR 1 DOSE Branch budesonide- 2021-0 Yes [id number] 2{puff} Inhale 2 [facility] formoteroL 4-26 Puffs 2 ity of (SYMBICORT) 00:00: (two) [place] 160-4.5 00 times Medical mcg/actuati daily. Branch on inhaler fluticasone 2021-0 Yes [id number] 1{spray Use 1 [facility] propionate 4-26 } [place] in ity o f 50 00:00: each [place] mcg/actuati 00 nostril 2 Med ical on nasal (two) Branch spray times daily. EPINEPHrine 2021-0 Yes ADMINISTER [facility] 0.3 mg/0.3 4-26 0.3 ML IN ity of mL 00:00: THE MUSCLE [place] injection 00 1 TIME NOW Medi lula FOR 1 DOSE Branch budesonide- 2021-0 Yes [id number] 2{puff} Inhale 2 [facility] formoteroL 4-26 Puffs 2 ity of (SYMBICORT) 00:00: (two) [place] 160-4.5 00 times Medical mcg/actuati daily. Branch on inhaler fluticasone 2021-0 Yes [id number] 1{spray Use 1 [facility] propionate 4-26 } [place] in ity o f 50 00:00: each [place] mcg/actuati 00 nostril 2 Med ical on nasal (two) Branch spray times daily. EPINEPHrine 2021-0 Yes ADMINISTER [facility] 0.3 mg/0.3 4-26 0.3 ML IN ity of mL 00:00: THE MUSCLE [place] injection 00 1 TIME NOW Medi lula FOR 1 DOSE Branch budesonide- 0 Yes [id number] 2{puff} Inhale 2 [facility] formoteroL 4-26 Puffs 2 ity of (SYMBICORT) 00:00: (two) [place] 160-4.5 00 times Medical mcg/actuati daily. Branch on inhaler fluticasone 0 Yes [id number] 1{spray Use 1 [facility] propionate 4-26 } [place] in ity o f 50 00:00: each [place] mcg/actuati 00 nostril 2 Med ical on nasal (two) Branch spray times daily. EPINEPHrine 2021-0 Yes ADMINISTER [facility] 0.3 mg/0.3 4-26 0.3 ML IN ity of mL 00:00: THE MUSCLE [place] injection 00 1 TIME NOW Medi lula FOR 1 DOSE Branch budesonide- 2021-0 Yes [id number] 2{puff} Inhale 2 [facility] formoteroL 4-26 Puffs 2 ity of (SYMBICORT) 00:00: (two) [place] 160-4.5 00 times Medical mcg/actuati daily. Branch on inhaler fluticasone 2021-0 Yes [id number] 1{spray Use 1 [facility] propionate 4-26 } [place] in ity o f 50 00:00: each [place] mcg/actuati 00 nostril 2 Med ical on nasal (two) Branch spray times daily. EPINEPHrine 2021-0 Yes ADMINISTER [facility] 0.3 mg/0.3 4-26 0.3 ML IN ity of mL 00:00: THE MUSCLE [place] injection 00 1 TIME NOW Medi lula FOR 1 DOSE Branch budesonide- 2021-0 Yes [id number] 2{puff} Inhale 2 [facility] formoteroL 4-26 Puffs 2 ity of (SYMBICORT) 00:00: (two) [place] 160-4.5 00 times Medical mcg/actuati daily. Branch on inhaler fluticasone 2021-0 Yes [id number] 1{spray Use 1 [facility] propionate 4-26 } [place] in ity o f 50 00:00: each [place] mcg/actuati 00 nostril 2 Med ical on nasal (two) Branch spray times daily. EPINEPHrine 2021-0 Yes ADMINISTER [facility] 0.3 mg/0.3 4-26 0.3 ML IN ity of mL 00:00: THE MUSCLE [place] injection 00 1 TIME NOW Medi lula FOR 1 DOSE Branch budesonide- 2021-0 Yes [id number] 2{puff} Inhale 2 [facility] formoteroL 4-26 Puffs 2 ity of (SYMBICORT) 00:00: (two) [place] 160-4.5 00 times Medical mcg/actuati daily. Branch on inhaler fluticasone 2021-0 Yes [id number] 1{spray Use 1 [facility] propionate 4-26 } [place] in ity o f 50 00:00: each [place] mcg/actuati 00 nostril 2 Med ical on nasal (two) Branch spray times daily. EPINEPHrine 2021-0 Yes ADMINISTER [facility] 0.3 mg/0.3 4-26 0.3 ML IN ity of mL 00:00: THE MUSCLE [place] injection 00 1 TIME NOW Medi lula FOR 1 DOSE Branch budesonide- 2021-0 Yes [id number] 2{puff} Inhale 2 [facility] formoteroL 4-26 Puffs 2 ity of (SYMBICORT) 00:00: (two) [place] 160-4.5 00 times Medical mcg/actuati daily. Branch on inhaler fluticasone 2021-0 Yes [id number] 1{spray Use 1 [facility] propionate 4-26 } [place] in ity o f 50 00:00: each [place] mcg/actuati 00 nostril 2 Med ical on nasal (two) Branch spray times daily. EPINEPHrine 2021-0 Yes ADMINISTER [facility] 0.3 mg/0.3 4-26 0.3 ML IN ity of mL 00:00: THE MUSCLE [place] injection 00 1 TIME NOW Medi lula FOR 1 DOSE Branch budesonide- 2021-0 Yes [id number] 2{puff} Inhale 2 [facility] formoteroL 4-26 Puffs 2 ity of (SYMBICORT) 00:00: (two) [place] 160-4.5 00 times Medical mcg/actuati daily. Branch on inhaler fluticasone 2021-0 Yes [id number] 1{spray Use 1 [facility] propionate 4-26 } [place] in ity o f 50 00:00: each [place] mcg/actuati 00 nostril 2 Med ical on nasal (two) Branch spray times daily. EPINEPHrine 2021-0 Yes ADMINISTER [facility] 0.3 mg/0.3 4-26 0.3 ML IN ity of mL 00:00: THE MUSCLE [place] injection 00 1 TIME NOW Medi lula FOR 1 DOSE Branch budesonide- 2021-0 Yes [id number] 2{puff} Inhale 2 [facility] formoteroL 4-26 Puffs 2 ity of (SYMBICORT) 00:00: (two) [place] 160-4.5 00 times Medical mcg/actuati daily. Branch on inhaler fluticasone 2021-0 Yes [id number] 1{spray Use 1 [facility] propionate 4-26 } [place] in ity o f 50 00:00: each [place] mcg/actuati 00 nostril 2 Med ical on nasal (two) Branch spray times daily. EPINEPHrine 2021-0 Yes ADMINISTER [facility] 0.3 mg/0.3 4-26 0.3 ML IN ity of mL 00:00: THE MUSCLE [place] injection 00 1 TIME NOW Medi lula FOR 1 DOSE Branch budesonide- 2021-0 Yes [id number] 2{puff} Inhale 2 [facility] formoteroL 4-26 Puffs 2 ity of (SYMBICORT) 00:00: (two) [place] 160-4.5 00 times Medical mcg/actuati daily. Branch on inhaler fluticasone 2022-0 Yes [id number] 1{spray Use 1 [facility] propionate 4-26 } [place] in [facility]y o f 50 00:00: each [place] mcg/actuati 00 nostril 2 Med ical on nasal (two) Branch spray times daily. EPINEPHrine 2021-0 Yes ADMINISTER [facility] 0.3 mg/0.3 4-26 0.3 ML IN ity of mL 00:00: THE MUSCLE [place] injection 00 1 TIME NOW Medi lula FOR 1 DOSE Branch budesonide- 0 Yes [id number] 2{puff} Inhale 2 [facility] formoteroL 4-26 Puffs 2 ity of (SYMBICORT) 00:00: (two) [place] 160-4.5 00 times Medical mcg/actuati daily. Branch on inhaler fluticasone Yes [id number] 1{spray Use 1 [facility] propionate 4-26 } [place] in ity o f 50 00:00: each [place] mcg/actuati 00 nostril 2 Med ical on nasal (two) Branch spray times daily. EPINEPHrine Yes ADMINISTER [facility] 0.3 mg/0.3 4-26 0.3 ML IN ity of mL 00:00: THE MUSCLE [place] injection 00 1 TIME NOW Medi lula FOR 1 DOSE Branch budesonide- 0 Yes [id number] 2{puff} Inhale 2 [facility] formoteroL 4-26 Puffs 2 ity of (SYMBICORT) 00:00: (two) [place] 160-4.5 00 times Medical mcg/actuati daily. Branch on inhaler fluticasone 2021-0 Yes [id number] 1{spray Use 1 [facility] propionate 4-26 } [place] in ity o f 50 00:00: each [place] mcg/actuati 00 nostril 2 Med ical on nasal (two) Branch spray times daily. EPINEPHrine 2021-0 Yes ADMINISTER [facility] 0.3 mg/0.3 4-26 0.3 ML IN ity of mL 00:00: THE MUSCLE [place] injection 00 1 TIME NOW Medi lula FOR 1 DOSE Branch budesonide- 0 Yes [id number] 2{puff} Inhale 2 [facility] formoteroL 4-26 Puffs 2 ity of (SYMBICORT) 00:00: (two) [place] 160-4.5 00 times Medical mcg/actuati daily. Branch on inhaler fluticasone Yes [id number] 1{spray Use 1 [facility] propionate 4-26 } [place] in ity o f 50 00:00: each [place] mcg/actuati 00 nostril 2 Med ical on nasal (two) Branch spray times daily. EPINEPHrine Yes ADMINISTER [facility] 0.3 mg/0.3 4-26 0.3 ML IN ity of mL 00:00: THE MUSCLE [place] injection 00 1 TIME NOW Medi lula FOR 1 DOSE Branch budesonide- Yes [id number] 2{puff} Inhale 2 [facility] formoteroL 4-26 Puffs 2 ity of (SYMBICORT) 00:00: (two) [place] 160-4.5 00 times Medical mcg/actuati daily. Branch on inhaler fluticasone Yes [id number] 1{spray Use 1 [facility] propionate 4-26 } [place] in [facility]y o f 50 00:00: each [place] mcg/actuati 00 nostril 2 Med ical on nasal (two) Branch spray times daily. EPINEPHrine Yes ADMINISTER [facility] 0.3 mg/0.3 4-26 0.3 ML IN ity of mL 00:00: THE MUSCLE [place] injection 00 1 TIME NOW Medi lula FOR 1 DOSE Branch budesonide- 0 Yes [id number] 2{puff} Inhale 2 [facility] formoteroL 4-26 Puffs 2 ity of (SYMBICORT) 00:00: (two) [place] 160-4.5 00 times Medical mcg/actuati daily. Branch on inhaler fluticasone Yes [id number] 1{spray Use 1 [facility] propionate 4-26 } [place] in ity o f 50 00:00: each [place] mcg/actuati 00 nostril 2 Med ical on nasal (two) Branch spray times daily. EPINEPHrine 2021-0 Yes ADMINISTER [facility] 0.3 mg/0.3 4-26 0.3 ML IN ity of mL 00:00: THE MUSCLE [place] injection 00 1 TIME NOW Medi lula FOR 1 DOSE Branch budesonide- 0 Yes [id number] 2{puff} Inhale 2 [facility] formoteroL 4-26 Puffs 2 ity of (SYMBICORT) 00:00: (two) [place] 160-4.5 00 times Medical mcg/actuati daily. Branch on inhaler fluticasone 2021-0 Yes [id number] 1{spray Use 1 [facility] propionate 4-26 } [place] in ity o f 50 00:00: each [place] mcg/actuati 00 nostril 2 Med ical on nasal (two) Branch spray times daily. EPINEPHrine 2021-0 Yes ADMINISTER [facility] 0.3 mg/0.3 4-26 0.3 ML IN ity of mL 00:00: THE MUSCLE [place] injection 00 1 TIME NOW Medi lula FOR 1 DOSE Branch budesonide- 2021-0 Yes [id number] 2{puff} Inhale 2 [facility] formoteroL 4-26 Puffs 2 ity of (SYMBICORT) 00:00: (two) [place] 160-4.5 00 times Medical mcg/actuati daily. Branch on inhaler fluticasone 2021-0 Yes [id number] 1{spray Use 1 [facility] propionate 4-26 } [place] [facility]y o f 50 00:00: each [place] mcg/actuati 00 nostril 2 Med ical on nasal (two) Branch spray times daily. EPINEPHrine 2021-0 Yes ADMINISTER [facility] 0.3 mg/0.3 4-26 0.3 ML IN ity of mL 00:00: THE MUSCLE [place] injection 00 1 TIME NOW Medi lula FOR 1 DOSE Branch budesonide- 0 Yes [id number] 2{puff} Inhale 2 [facility] formoteroL 4-26 Puffs 2 ity of (SYMBICORT) 00:00: (two) [place] 160-4.5 00 times Medical mcg/actuati daily. Branch on inhaler fluticasone 2021-0 Yes [id number] 1{spray Use 1 [facility] propionate 4-26 } [place] in ity o f 50 00:00: each [place] mcg/actuati 00 nostril 2 Med ical on nasal (two) Branch spray times daily. EPINEPHrine 2021-0 Yes ADMINISTER [facility] 0.3 mg/0.3 4-26 0.3 ML IN ity of mL 00:00: THE MUSCLE [place] injection 00 1 TIME NOW Medi lula FOR 1 DOSE Branch budesonide- 2021-0 Yes [id number] 2{puff} Inhale 2 [facility] formoteroL 4-26 Puffs 2 ity of (SYMBICORT) 00:00: (two) [place] 160-4.5 00 times Medical mcg/actuati daily. Branch on inhaler fluticasone 2021-0 Yes [id number] 1{spray Use 1 [facility] propionate 4-26 } [place] in ity o f 50 00:00: each [place] mcg/actuati 00 nostril 2 Med ical on nasal (two) Branch spray times daily. EPINEPHrine 2021-0 Yes ADMINISTER [facility] 0.3 mg/0.3 4-26 0.3 ML IN ity of mL 00:00: THE MUSCLE [place] injection 00 1 TIME NOW Medi lula FOR 1 DOSE Branch budesonide- 2021-0 Yes [id number] 2{puff} Inhale 2 [facility] formoteroL 4-26 Puffs 2 ity of (SYMBICORT) 00:00: (two) [place] 160-4.5 00 times Medical mcg/actuati daily. Branch on inhaler fluticasone 2021-0 Yes [id number] 1{spray Use 1 [facility] propionate 4-26 } [place] in ity o f 50 00:00: each [place] mcg/actuati 00 nostril 2 Med ical on nasal (two) Branch spray times daily. EPINEPHrine 2021-0 Yes ADMINISTER [facility] 0.3 mg/0.3 4-26 0.3 ML IN ity of mL 00:00: THE MUSCLE [place] injection 00 1 TIME NOW Medi lula FOR 1 DOSE Branch budesonide- 0 Yes [id number] 2{puff} Inhale 2 [facility] formoteroL 4-26 Puffs 2 ity of (SYMBICORT) 00:00: (two) [place] 160-4.5 00 times Medical mcg/actuati daily. Branch on inhaler fluticasone 2021-0 Yes [id number] 1{spray Use 1 [facility] propionate 4-26 } [place] in ity o f 50 00:00: each [place] mcg/actuati 00 nostril 2 Med ical on nasal (two) Branch spray times daily. EPINEPHrine 2021-0 Yes ADMINISTER [facility] 0.3 mg/0.3 4-26 0.3 ML IN ity of mL 00:00: THE MUSCLE [place] injection 00 1 TIME NOW Medi lula FOR 1 DOSE Branch budesonide- 2021-0 Yes [id number] 2{puff} Inhale 2 [facility] formoteroL 4-26 Puffs 2 ity of (SYMBICORT) 00:00: (two) [place] 160-4.5 00 times Medical mcg/actuati daily. Branch on inhaler fluticasone 2021-0 Yes [id number] 1{spray Use 1 [facility] propionate 4-26 } [place] in ity o f 50 00:00: each [place] mcg/actuati 00 nostril 2 Med ical on nasal (two) Branch spray times daily. EPINEPHrine 2021-0 Yes ADMINISTER [facility] 0.3 mg/0.3 4-26 0.3 ML IN ity of mL 00:00: THE MUSCLE [place] injection 00 1 TIME NOW Medi lula FOR 1 DOSE Branch budesonide- 2021-0 Yes [id number] 2{puff} Inhale 2 [facility] formoteroL 4-26 Puffs 2 ity of (SYMBICORT) 00:00: (two) [place] 160-4.5 00 times Medical mcg/actuati daily. Branch on inhaler fluticasone 2021-0 Yes [id number] 1{spray Use 1 [facility] propionate 4-26 } [place] in ity o f 50 00:00: each [place] mcg/actuati 00 nostril 2 Med ical on nasal (two) Branch spray times daily. EPINEPHrine Yes ADMINISTER [facility] 0.3 mg/0.3 4-26 0.3 ML IN ity of mL 00:00: THE MUSCLE [place] injection 00 1 TIME NOW Medi lula FOR 1 DOSE Branch budesonide- 2021-0 Yes [id number] 2{puff} Inhale 2 [facility] formoteroL 4-26 Puffs 2 ity of (SYMBICORT) 00:00: (two) [place] 160-4.5 00 times Medical mcg/actuati daily. Branch on inhaler EPINEPHrine Yes ADMINISTER [facility] 0.3 mg/0.3 4-26 0.3 ML IN ity of mL 00:00: THE MUSCLE [place] injection 00 1 TIME NOW Medi lula FOR 1 DOSE Branch budesonide- 2021-0 Yes [id number] 2{puff} Inhale 2 [facility] formoteroL 4-26 Puffs 2 ity of (SYMBICORT) 00:00: (two) [place] 160-4.5 00 times Medical mcg/actuati daily. Branch on inhaler EPINEPHrine 2021-0 Yes ADMINISTER [facility] 0.3 mg/0.3 4-26 0.3 ML IN ity of mL 00:00: THE MUSCLE [place] injection 00 1 TIME NOW Medi lula FOR 1 DOSE Branch budesonide- 2021-0 Yes [id number] 2{puff} Inhale 2 [facility] formoteroL 4-26 Puffs 2 ity of (SYMBICORT) 00:00: (two) [place] 160-4.5 00 times Medical mcg/actuati daily. Branch on inhaler EPINEPHrine 2021- Yes ADMINISTER [facility] 0.3 mg/0.3 4-26 0.3 ML IN ity of mL 00:00: THE MUSCLE [place] injection 00 1 TIME NOW Medi lula FOR 1 DOSE Branch budesonide- 2021-0 Yes [id number] 2{puff} Inhale 2 [facility] formoteroL 4-26 Puffs 2 ity of (SYMBICORT) 00:00: (two) [place] 160-4.5 00 times Medical mcg/actuati daily. Branch on inhaler EPINEPHrine 2021- Yes ADMINISTER [facility] 0.3 mg/0.3 4-26 0.3 ML IN ity of mL 00:00: THE MUSCLE [place] injection 00 1 TIME NOW Medi lula FOR 1 DOSE Branch budesonide- 2021-0 Yes [id number] 2{puff} Inhale 2 [facility] formoteroL 4-26 Puffs 2 ity of (SYMBICORT) 00:00: (two) [place] 160-4.5 00 times Medical mcg/actuati daily. Branch on inhaler EPINEPHrine 2021-0 Yes ADMINISTER [facility] 0.3 mg/0.3 4-26 0.3 ML IN ity of mL 00:00: THE MUSCLE [place] injection 00 1 TIME NOW Medi lula FOR 1 DOSE Branch budesonide- 2021-0 Yes [id number] 2{puff} Inhale 2 [facility] formoteroL 4-26 Puffs 2 ity of (SYMBICORT) 00:00: (two) [place] 160-4.5 00 times Medical mcg/actuati daily. Branch on inhaler EPINEPHrine 2021-0 Yes ADMINISTER [facility] 0.3 mg/0.3 4-26 0.3 ML IN ity of mL 00:00: THE MUSCLE [place] injection 00 1 TIME NOW Medi lula FOR 1 DOSE Branch budesonide- 2021-0 Yes [id number] 2{puff} Inhale 2 [facility] formoteroL 4-26 Puffs 2 ity of (SYMBICORT) 00:00: (two) [place] 160-4.5 00 times Medical mcg/actuati daily. Branch on inhaler EPINEPHrine 2021-0 Yes ADMINISTER [facility] 0.3 mg/0.3 4-26 0.3 ML IN ity of mL 00:00: THE MUSCLE [place] injection 00 1 TIME NOW Medi lula FOR 1 DOSE Branch budesonide- 2021-0 Yes [id number] 2{puff} Inhale 2 [facility] formoteroL 4-26 Puffs 2 ity of (SYMBICORT) 00:00: (two) [place] 160-4.5 00 times Medical mcg/actuati daily. Branch on inhaler EPINEPHrine 2021-0 Yes ADMINISTER [facility] 0.3 mg/0.3 4-26 0.3 ML IN ity of mL 00:00: THE MUSCLE [place] injection 00 1 TIME NOW Medi lula FOR 1 DOSE Branch budesonide- 2021-0 Yes [id number] 2{puff} Inhale 2 [facility] formoteroL 4-26 Puffs 2 ity of (SYMBICORT) 00:00: (two) [place] 160-4.5 00 times Medical mcg/actuati daily. Branch on inhaler EPINEPHrine 2021-0 Yes ADMINISTER [facility] 0.3 mg/0.3 4-26 0.3 ML IN ity of mL 00:00: THE MUSCLE [place] injection 00 1 TIME NOW Medi lula FOR 1 DOSE Branch budesonide- 2021-0 Yes [id number] 2{puff} Inhale 2 [facility] formoteroL 4-26 Puffs 2 ity of (SYMBICORT) 00:00: (two) [place] 160-4.5 00 times Medical mcg/actuati daily. Branch on inhaler EPINEPHrine 2021-0 Yes ADMINISTER [facility] 0.3 mg/0.3 4-26 0.3 ML IN ity of mL 00:00: THE MUSCLE [place] injection 00 1 TIME NOW Medi lula FOR 1 DOSE Branch budesonide- 2021-0 Yes [id number] 2{puff} Inhale 2 [facility] formoteroL 4-26 Puffs 2 ity of (SYMBICORT) 00:00: (two) [place] 160-4.5 00 times Medical mcg/actuati daily. Branch on inhaler EPINEPHrine 2021-0 Yes ADMINISTER [facility] 0.3 mg/0.3 4-26 0.3 ML IN ity of mL 00:00: THE MUSCLE [place] injection 00 1 TIME NOW Medi lula FOR 1 DOSE Branch budesonide- 2021-0 Yes [id number] 2{puff} Inhale 2 [facility] formoteroL 4-26 Puffs 2 ity of (SYMBICORT) 00:00: (two) [place] 160-4.5 00 times Medical mcg/actuati daily. Branch on inhaler EPINEPHrine 2021- Yes ADMINISTER [facility] 0.3 mg/0.3 4-26 0.3 ML IN ity of mL 00:00: THE MUSCLE [place] injection 00 1 TIME NOW Medi lula FOR 1 DOSE Branch budesonide- 2021-0 Yes [id number] 2{puff} Inhale 2 [facility] formoteroL 4-26 Puffs 2 ity of (SYMBICORT) 00:00: (two) [place] 160-4.5 00 times Medical mcg/actuati daily. Branch on inhaler EPINEPHrine 2021- Yes ADMINISTER [facility] 0.3 mg/0.3 4-26 0.3 ML IN ity of mL 00:00: THE MUSCLE [place] injection 00 1 TIME NOW Medi lula FOR 1 DOSE Branch budesonide- 2021-0 Yes [id number] 2{puff} Inhale 2 [facility] formoteroL 4-26 Puffs 2 ity of (SYMBICORT) 00:00: (two) [place] 160-4.5 00 times Medical mcg/actuati daily. Branch on inhaler EPINEPHrine 2021-0 Yes ADMINISTER [facility] 0.3 mg/0.3 4-26 0.3 ML IN ity of mL 00:00: THE MUSCLE [place] injection 00 1 TIME NOW Medi lula FOR 1 DOSE Branch budesonide- 2021-0 Yes [id number] 2{puff} Inhale 2 [facility] formoteroL 4-26 Puffs 2 ity of (SYMBICORT) 00:00: (two) [place] 160-4.5 00 times Medical mcg/actuati daily. Branch on inhaler EPINEPHrine 2021-0 Yes ADMINISTER [facility] 0.3 mg/0.3 4-26 0.3 ML IN ity of mL 00:00: THE MUSCLE [place] injection 00 1 TIME NOW Medi lula FOR 1 DOSE Branch budesonide- 2021-0 Yes [id number] 2{puff} Inhale 2 [facility] formoteroL 4-26 Puffs 2 ity of (SYMBICORT) 00:00: (two) [place] 160-4.5 00 times Medical mcg/actuati daily. Branch on inhaler EPINEPHrine 2021-0 Yes ADMINISTER [facility] 0.3 mg/0.3 4-26 0.3 ML IN ity of mL 00:00: THE MUSCLE [place] injection 00 1 TIME NOW Medi lula FOR 1 DOSE Branch budesonide- 2021-0 Yes [id number] 2{puff} Inhale 2 [facility] formoteroL 4-26 Puffs 2 ity of (SYMBICORT) 00:00: (two) [place] 160-4.5 00 times Medical mcg/actuati daily. Branch on inhaler EPINEPHrine 2021- Yes ADMINISTER [facility] 0.3 mg/0.3 4-26 0.3 ML IN ity of mL 00:00: THE MUSCLE [place] injection 00 1 TIME NOW Medi lula FOR 1 DOSE Branch budesonide- 2021-0 Yes [id number] 2{puff} Inhale 2 [facility] formoteroL 4-26 Puffs 2 ity of (SYMBICORT) 00:00: (two) [place] 160-4.5 00 times Medical mcg/actuati daily. Branch on inhaler EPINEPHrine 2021-0 Yes ADMINISTER [facility] 0.3 mg/0.3 4-26 0.3 ML IN ity of mL 00:00: THE MUSCLE [place] injection 00 1 TIME NOW Medi lula FOR 1 DOSE Branch budesonide- 2021-0 Yes [id number] 2{puff} Inhale 2 [facility] formoteroL 4-26 Puffs 2 ity of (SYMBICORT) 00:00: (two) [place] 160-4.5 00 times Medical mcg/actuati daily. Branch on inhaler EPINEPHrine 2021-0 Yes ADMINISTER [facility] 0.3 mg/0.3 4-26 0.3 ML IN ity of mL 00:00: THE MUSCLE [place] injection 00 1 TIME NOW Medi lula FOR 1 DOSE Branch budesonide- 2021-0 Yes [id number] 2{puff} Inhale 2 [facility] formoteroL 4-26 Puffs 2 ity of (SYMBICORT) 00:00: (two) [place] 160-4.5 00 times Medical mcg/actuati daily. Branch on inhaler EPINEPHrine 2021-0 Yes ADMINISTER [facility] 0.3 mg/0.3 4-26 0.3 ML IN ity of mL 00:00: THE MUSCLE [place] injection 00 1 TIME NOW Medi lula FOR 1 DOSE Branch budesonide- Yes [id number] 2{puff} Inhale 2 [facility] formoteroL 4-26 Puffs 2 ity of (SYMBICORT) 00:00: (two) [place] 160-4.5 00 times Medical mcg/actuati daily. Branch on inhaler budesonide- Yes [id number] 2{puff} Inhale 2 [facility] formoteroL 4-26 Puffs 2 ity of (SYMBICORT) 00:00: (two) [place] 160-4.5 00 times Medical mcg/actuati daily. Branch on inhaler budesonide- Yes [id number] 2{puff} Inhale 2 [facility] formoteroL 4-26 Puffs 2 ity of (SYMBICORT) 00:00: (two) [place] 160-4.5 00 times Medical mcg/actuati daily. Branch on inhaler budesonide- Yes [id number] 2{puff} Inhale 2 [facility] formoteroL 4-26 Puffs 2 ity of (SYMBICORT) 00:00: (two) [place] 160-4.5 00 times Medical mcg/actuati daily. Branch on inhaler budesonide- Yes [id number] 2{puff} Inhale 2 [facility] formoteroL 4-26 Puffs 2 ity of (SYMBICORT) 00:00: (two) [place] 160-4.5 00 times Medical mcg/actuati daily. Branch on inhaler budesonide- Yes [id number] 2{puff} Inhale 2 [facility] formoteroL 4-26 Puffs 2 ity of (SYMBICORT) 00:00: (two) [place] 160-4.5 00 times Medical mcg/actuati daily. Branch on inhaler budesonide- Yes [id number] 2{puff} Inhale 2 [facility] formoteroL 4-26 Puffs 2 ity of (SYMBICORT) 00:00: (two) [place] 160-4.5 00 times Medical mcg/actuati daily. Branch on inhaler budesonide- Yes [id number] 2{puff} Inhale 2 [facility] formoteroL 4-26 Puffs 2 ity of (SYMBICORT) 00:00: (two) [place] 160-4.5 00 times Medical mcg/actuati daily. Branch on inhaler budesonide- Yes [id number] 2{puff} Inhale 2 [facility] formoteroL 4-26 Puffs 2 ity of (SYMBICORT) 00:00: (two) [place] 160-4.5 00 times Medical mcg/actuati daily. Branch on inhaler budesonide- Yes [id number] 2{puff} Inhale 2 [facility] formoteroL 4-26 Puffs 2 ity of (SYMBICORT) 00:00: (two) [place] 160-4.5 00 times Medical mcg/actuati daily. Branch on inhaler budesonide- Yes [id number] 2{puff} Inhale 2 [facility] formoteroL 4-26 Puffs 2 ity of (SYMBICORT) 00:00: (two) [place] 160-4.5 00 times Medical mcg/actuati daily. Branch on inhaler budesonide- Yes [id number] 2{puff} Inhale 2 [facility] formoteroL 4-26 Puffs 2 ity of (SYMBICORT) 00:00: (two) [place] 160-4.5 00 times Medical mcg/actuati daily. Branch on inhaler budesonide- Yes [id number] 2{puff} Inhale 2 [facility] formoteroL 4-26 Puffs 2 ity of (SYMBICORT) 00:00: (two) [place] 160-4.5 00 times Medical mcg/actuati daily. Branch on inhaler budesonide- Yes [id number] 2{puff} Inhale 2 [facility] formoteroL 4-26 Puffs 2 ity of (SYMBICORT) 00:00: (two) [place] 160-4.5 00 times Medical mcg/actuati daily. Branch on inhaler budesonide- Yes [id number] 2{puff} Inhale 2 [facility] formoteroL 4-26 Puffs 2 ity of (SYMBICORT) 00:00: (two) [place] 160-4.5 00 times Medical mcg/actuati daily. Branch on inhaler budesonide- Yes [id number] 2{puff} Inhale 2 [facility] formoteroL 4-26 Puffs 2 ity of (SYMBICORT) 00:00: (two) [place] 160-4.5 00 times Medical mcg/actuati daily. Branch on inhaler budesonide- Yes [id number] 2{puff} Inhale 2 [facility] formoteroL 4-26 Puffs 2 ity of (SYMBICORT) 00:00: (two) [place] 160-4.5 00 times Medical mcg/actuati daily. Branch on inhaler budesonide- Yes [id number] 2{puff} Inhale 2 [facility] formoteroL 4-26 Puffs 2 ity of (SYMBICORT) 00:00: (two) [place] 160-4.5 00 times Medical mcg/actuati daily. Branch on inhaler budesonide- Yes [id number] 2{puff} Inhale 2 [facility] formoteroL 4-26 Puffs 2 ity of (SYMBICORT) 00:00: (two) [place] 160-4.5 00 times Medical mcg/actuati daily. Branch on inhaler budesonide- Yes [id number] 2{puff} Inhale 2 [facility] formoteroL 4-26 Puffs 2 ity of (SYMBICORT) 00:00: (two) [place] 160-4.5 00 times Medical mcg/actuati daily. Branch on inhaler budesonide- Yes [id number] 2{puff} Inhale 2 [facility] formoteroL 4-26 Puffs 2 ity of (SYMBICORT) 00:00: (two) [place] 160-4.5 00 times Medical mcg/actuati daily. Branch on inhaler fluticasone 0 2023- No [id number] 1{spray Use 1 [facility] propionate 4-26 04-21 } [place] in ity of 50 00:00: 00:00 each [...] 00 :00 EVERY Medical WEEK. Branch acetaminoph Yes TAKE 1 [facility] ers en-codeine 4-18 TABLET BY ity of 300-60 mg 00:00: MOUTH [place] tablet 00 EVERY 6 Medical HOURS Branch NEEDED acetaminoph 2021-0 Yes TAKE 1 [facility] ers en-codeine 4-18 [...] 4-11 by mouth ity of 13:05: daily. [place] [address] [facility] Branch losartan 25 2021-0 Yes 25mg Take 25 mg [facility] mg tablet 4-11 by mouth ity of 13:05: daily. [place] [address] Medical Branch losartan 25 2021-0 Yes 25mg Take 25 mg [facility] mg tablet 4-11 by mouth ity of 13:05: daily. [address] losartan 25 Yes 25mg Take 25 mg [facility] mg tablet 4-11 by mouth ity of 13:05: daily. [address] losartan 25 Yes 25mg Take 25 mg [facility] mg tablet 4-11 by mouth ity of 13:05: daily. [address] losartan 25 Yes 25mg Take 25 mg [facility] mg tablet 4-11 by mouth ity of 13:05: daily. [address] losartan 25 Yes 25mg Take 25 mg [facility] mg tablet 4-11 by mouth ity of 13:05: daily. [address] losartan 25 Yes 25mg Take 25 mg [facility] mg tablet 4-11 by mouth ity of 13:05: daily. [address] losartan 25 Yes 25mg Take 25 mg [facility] mg tablet 4-11 by mouth ity of 13:05: daily. [address] losartan 25 Yes 25mg Take 25 mg [facility] mg tablet 4-11 by mouth ity of 13:05: daily. [address] losartan 25 Yes 25mg Take 25 mg [facility] mg tablet 4-11 by mouth ity of 13:05: daily. [address] losartan 25 Yes 25mg Take 25 mg [facility] mg tablet 4-11 by mouth ity of 13:05: daily. [address] losartan 25 Yes 25mg Take 25 mg [facility] mg tablet 4-11 by mouth ity of 13:05: daily. [address] losartan 25 Yes 25mg Take 25 mg [facility] mg tablet 4-11 by mouth ity of 13:05: daily. [address] losartan 25 Yes 25mg Take 25 mg [facility] mg tablet 4-11 by mouth ity of 13:05: daily. [address] losartan 25 Yes 25mg Take 25 mg [facility] mg tablet 4-11 by mouth ity of 13:05: daily. [address] losartan 25 Yes 25mg Take 25 mg [facility] mg tablet 4-11 by mouth ity of 13:05: daily. [address] losartan 25 Yes 25mg Take 25 mg [facility] mg tablet 4-11 by mouth ity of 13:05: daily. [place] [address] [facility] losartan 25 2021-0 Yes 25mg Take 25 mg [facility] mg tablet 4-11 by mouth ity of 13:05: daily. [place] [address] [facility] Branch losartan 25 2021-0 Yes 25mg Take 25 mg [facility] mg tablet 4-11 by mouth ity of 13:05: daily. [address] Branch losartan 25 2021-0 Yes 25mg Take 25 mg [facility] mg tablet 4-11 by mouth ity of 13:05: daily. [place] [address] [facility] Branch ACCU-CHEK 2022-0 Yes [facility] SOFTCLIX 4-07 ity of LANCETS 00:00: [place] [address] [facility] Branch ACCU-CHEK 2022-0 Yes [facility] SOFTCLIX 4-07 ity of LANCETS 00:00: [place] [address] [facility] Branch ACCU-CHEK 2022-0 Yes [facility] SOFTCLIX 4-07 ity of LANCETS 00:00: [place] [address] [facility] Branch ACCU-CHEK 2022-0 Yes [facility] SOFTCLIX 4-07 ity of LANCETS 00:00: [place] [address] [facility] Branch ACCU-CHEK 2022-0 Yes [facility] SOFTCLIX 4-07 ity of LANCETS 00:00: [place] [address] [facility] Branch ACCU-CHEK 2022-0 Yes [facility] SOFTCLIX 4-07 ity of LANCETS 00:00: [place] [address] [facility] Branch ACCU-CHEK 2022-0 Yes [facility] SOFTCLIX 4-07 ity of LANCETS 00:00: [place] [address] [facility] Branch ACCU-CHEK 2022-0 Yes [facility] SOFTCLIX 4-07 ity of LANCETS 00:00: [place] [address] [facility] Branch ACCU-CHEK 2022-0 Yes [facility] SOFTCLIX 4-07 ity of LANCETS 00:00: [place] [address] [facility] Branch ACCU-CHEK 2022-0 Yes [facility] SOFTCLIX 4-07 ity of LANCETS 00:00: [place] [address] [facility] Branch ACCU-CHEK 2022-0 Yes [facility] SOFTCLIX 4-07 ity of LANCETS 00:00: [place] [address] Medical Branch ACCU-CHEK 2022-0 Yes [facility] SOFTCLIX 4-07 ity of LANCETS 00:00: [place] [facility] Branch ACCU-CHEK 2022-0 Yes [facility] SOFTCLIX 4-07 ity of LANCETS 00:00: [facility] 00 Medical Branch ACCU-CHEK 2022-0 Yes [facility] SOFTCLIX 4-07 ity of LANCETS 00:00: [facility] 00 Medical Branch ACCU-CHEK 2022-0 Yes [facility] SOFTCLIX 4-07 ity of LANCETS 00:00: [facility] 00 Medical Branch ACCU-CHEK 2022-0 Yes [facility] SOFTCLIX 4-07 ity of LANCETS 00:00: [facility] 00 Medical Branch ACCU-CHEK 2022-0 Yes [facility] SOFTCLIX 4-07 ity of LANCETS 00:00: [facility] 00 Medical Branch ACCU-CHEK 2022-0 Yes [facility] SOFTCLIX 4-07 ity of LANCETS 00:00: [facility] 00 Medical Branch ACCU-CHEK 2022-0 Yes [facility] SOFTCLIX 4-07 ity of LANCETS 00:00: [facility] 00 Medical Branch ACCU-CHEK 2022-0 Yes [facility] SOFTCLIX 4-07 ity of LANCETS 00:00: [facility] 00 Medical Branch ACCU-CHEK 2022-0 Yes [facility] SOFTCLIX 4-07 ity of LANCETS 00:00: [facility] 00 Medical Branch ACCU-CHEK 2022-0 Yes [facility] SOFTCLIX 4-07 ity of LANCETS 00:00: [facility] 00 Medical Branch ACCU-CHEK 2022-0 Yes [facility] SOFTCLIX 4-07 ity of LANCETS 00:00: [facility] 00 Medical Branch ACCU-CHEK 2022-0 Yes [facility] SOFTCL[facility] 4-07 ity of LANCETS 00:00: [facility] 00 Medical Branch ACCU-CHEK 2022-0 Yes [facility] SOFTCL[facility] 4-07 ity of LANCETS 00:00: [facility] 00 Medical Branch ACCU-CHEK 2022-0 Yes [facility] SOFTCL[facility] 4-07 ity of LANCETS 00:00: [facility] 00 Medical Branch ACCU-CHEK 2022-0 Yes [facility] SOFTCL[employer] 4-07 ity of LANCETS 00:00: [facility] 00 Medical Branch ACCU-CHEK 2022-0 Yes [facility] SOFT[facility] 4-07 ity of LANCETS 00:00: [facility] 00 Medical Branch ACCU-CHEK 2022-0 Yes [facility] SOFT[facility] 4-07 ity of LANCETS 00:00: [facility] 00 Medical Branch ACCU-CHEK 2022-0 Yes [facility] SOFTCL[employer] 4-07 ity of LANCETS 00:00: [facility] 00 Medical Branch ACCU-CHEK 2022-0 Yes [facility] SOFTCL[facility] 4-07 ity of LANCETS 00:00: [facility] 00 Medical Branch ACCU-CHEK 2022-0 Yes [facility] SOFTCL[facility] 4-07 ity of LANCETS 00:00: [facility] 00 Medical Branch ACCU-CHEK 2022-0 Yes [facility]FT[facility] 4-07 ity of LANCETS 00:00: [facility] 00 Medical Branch ACCU-CHEK 2022-0 Yes [facility] SOFTCLIX 4-07 ity of LANCETS 00:00: [facility] 00 Medical Branch ACCU-CHEK 2022-0 Yes [facility] SOFTCLIX 4-07 ity of LANCETS 00:00: [facility] 00 Medical Branch ACCU-CHEK 2022-0 Yes [facility] SOFTCLIX 4-07 ity of LANCETS 00:00: [facility] 00 Medical Branch ACCU-CHEK 2022-0 Yes [facility] SOFTCLIX 4-07 ity of LANCETS 00:00: [facility] 00 Medical Branch ACCU-CHEK 2022-0 Yes [facility] SOFTCLIX 4-07 ity of LANCETS 00:00: [facility] 00 Medical Branch ACCU-CHEK 2022-0 Yes [facility] SOFTCLIX 4-07 ity of LANCETS 00:00: [facility] 00 Medical Branch ACCU-CHEK 2022-0 Yes [facility] SOFTCLIX 4-07 ity of LANCETS 00:00: [facility] 00 Medical Branch ACCU-CHEK 2022-0 Yes [facility] SOFTCLIX 4-07 ity of LANCETS 00:00: [facility] 00 Medical Branch ACCU-CHEK 2022-0 Yes [facility] SOFTCLIX 4-07 ity of LANCETS 00:00: [facility] 00 Medical Branch ACCU-CHEK 2022-0 Yes [facility] SOFTCLIX 4-07 ity of LANCETS 00:00: [facility] 00 Medical Branch ACCU-CHEK 2022-0 Yes [facility] SOFTCLIX 4-07 ity of LANCETS 00:00: [facility] 00 Medical Branch ACCU-CHEK 2022-0 Yes [facility] SOFTCLIX 4-07 ity of LANCETS 00:00: [facility] 00 Medical Branch ACCU-CHEK 2022-0 Yes [facility] SOFTCLIX 4-07 ity of LANCETS 00:00: [facility] 00 Medical Branch ACCU-CHEK 2022-0 Yes [facility] SOFTCLIX 4-07 ity of LANCETS 00:00: [facility] 00 Medical Branch ACCU-CHEK 2022-0 Yes [facility] SOFTCLIX 4-07 ity of LANCETS 00:00: [facility] 00 Medical Branch ACCU-CHEK 2022-0 Yes [facility] SOFTCLIX 4-07 ity of LANCETS 00:00: [facility] 00 Medical Branch ACCU-CHEK 2022-0 Yes [facility] SOFTCLIX 4-07 ity of LANCETS 00:00: [place] [address] Medical Branch ACCU-CHEK 2022-0 Yes [facility] SOFTCLIX 4-07 ity of LANCETS 00:00: [facility] 00 Medical Branch ACCU-CHEK 2022-0 Yes [facility] SOFTCLIX 4-07 ity of LANCETS 00:00: [facility] 00 Medical Branch ACCU-CHEK 2022-0 Yes [facility] SOFTCLIX 4-07 ity of LANCETS 00:00: [facility] 00 Medical Branch ACCU-CHEK 2022-0 Yes [facility] SOFTCLIX 4-07 ity of LANCETS 00:00: [facility] 00 Medical Branch ACCU-CHEK 2022-0 Yes [facility] SOFTCLIX 4-07 ity of LANCETS 00:00: [facility] 00 Medical Branch ACCU-CHEK 2022-0 Yes [facility] SOFTCLIX 4-07 ity of LANCETS 00:00: [facility] 00 Medical Branch ACCU-CHEK 2022-0 Yes [facility] SOFTCLIX 4-07 ity of LANCETS 00:00: [facility] 00 Medical Branch ACCU-CHEK 2022-0 Yes [facility] SOFTCLIX 4-07 ity of LANCETS 00:00: [facility] 00 Medical Branch ACCU-CHEK 2022-0 Yes [facility] SOFTCLIX 4-07 ity of LANCETS 00:00: [facility] 00 Medical Branch ACCU-CHEK 2022-0 Yes [facility] SOFTCLIX 4-07 ity of LANCETS 00:00: [facility] 00 Medical Branch ACCU-CHEK 2022-0 Yes [facility] SOFTCLIX 4-07 ity of LANCETS 00:00: [facility] 00 Medical Branch ACCU-CHEK 2022-0 Yes [facility] SOFTCLIX 4-07 ity of LANCETS 00:00: [facility] 00 Medical Branch ACCU-CHEK 2022-0 Yes [facility] SOFTCLIX 4-07 ity of LANCETS 00:00: [facility] 00 Medical Branch ACCU-CHEK 2022-0 Yes [facility] SOFTCLIX 4-07 ity of LANCETS 00:00: [facility] 00 Medical Branch ACCU-CHEK 2022-0 Yes [facility] SOFTCLIX 4-07 ity of LANCETS 00:00: [facility] 00 Medical Branch ACCU-CHEK 2022-0 Yes [facility] SOFTCLIX 4-07 ity of LANCETS 00:00: [facility] 00 Medical Branch ACCU-CHEK 2022-0 Yes [facility] SOFTCLIX 4-07 ity of LANCETS 00:00: [facility] 00 Medical Branch ACCU-CHEK 2022-0 Yes [facility] SOFTCLIX 4-07 ity of LANCETS 00:00: [facility] 00 Medical Branch ACCU-CHEK 2022-0 Yes [facility] SOFTCLIX 4-07 ity of LANCETS 00:00: [facility] 00 Medical Branch ACCU-CHEK 2022-0 Yes [facility] SOFTCLIX 4-07 ity of LANCETS 00:00: [facility] 00 Medical Branch ACCU-CHEK 2022-0 Yes [facility] SOFTCLIX 4-07 ity of LANCETS 00:00: [facility] 00 Medical Branch ACCU-CHEK 2022-0 Yes [facility] SOFTCLIX 4-07 ity of LANCETS 00:00: [facility] 00 Medical Branch ACCU-CHEK 2022-0 Yes [facility] SOFTCLIX 4-07 ity of LANCETS 00:00: [facility] 00 Medical Branch ACCU-CHEK 2022-0 Yes [facility] SOFTCLIX 4-07 ity of LANCETS 00:00: [facility] 00 Medical Branch ACCU-CHEK 2022-0 Yes [facility] SOFTCLIX 4-07 ity of LANCETS 00:00: [facility] 00 Medical Branch ACCU-CHEK 2022-0 Yes [facility] SOFTCLIX 4-07 ity of LANCETS 00:00: [facility] 00 Medical Branch ACCU-CHEK 2022-0 Yes [facility] SOFTCLIX 4-07 ity of LANCETS 00:00: [facility] 00 Medical Branch ACCU-CHEK 2022-0 Yes [facility] SOFTCLIX 4-07 ity of LANCETS 00:00: [facility] 00 Medical Branch ACCU-CHEK 2022-0 Yes [facility] SOFTCLIX 4-07 ity of LANCETS 00:00: [facility] 00 Medical Branch ACCU-CHEK 2022-0 Yes [facility] SOFTCLIX 4-07 ity of LANCETS 00:00: [facility] 00 Medical Branch ACCU-CHEK 2022-0 Yes [facility] SOFTCLIX 4-07 ity of LANCETS 00:00: [place] [address] Medical Branch ACCU-CHEK 2022-0 Yes [facility] SOFTCLIX 4-07 ity of LANCETS 00:00: [facility] 00 Medical Branch ACCU-CHEK 2022-0 Yes [facility] SOFTCLIX 4-07 ity of LANCETS 00:00: [facility] 00 Medical Branch ACCU-CHEK 2022-0 Yes [facility] SOFTCLIX 4-07 ity of LANCETS 00:00: [facility] 00 Medical Branch ACCU-CHEK 2022-0 Yes [facility] SOFTCLIX 4-07 ity of LANCETS 00:00: [facility] 00 Medical Branch ACCU-CHEK 2022-0 Yes [facility] SOFTCLIX 4-07 ity of LANCETS 00:00: [facility] 00 Medical Branch blood sugar 2022-0 Yes [id number] Use as [facility] diagnostic 4-02 directed ity o f (ACCU-CHEK 00:00: [place] [facility] 00 Medical TEST STRIP) Branch strip blood sugar 2022-0 Yes [id number] Use as [facility] diagnostic 4-02 directed ity o f (ACCU-CHEK 00:00: [place] [facility] 00 Medical TEST STRIP) Branch strip blood sugar 2022-0 Yes [id number] Use as [facility] diagnostic 4-02 directed ity o f (ACCU-CHEK 00:00: [place] [facility] 00 Medical TEST STRIP) Branch strip blood sugar 2022-0 Yes [id number] Use as [facility] diagnostic 4-02 directed ity o f (ACCU-CHEK 00:00: [place] [facility] 00 Medical TEST STRIP) Branch strip blood sugar 2021-0 Yes [id number] Use as [facility] diagnostic 4-02 directed ity o f (ACCU-CHEK 00:00: [place] [facility] 00 Medical TEST STRIP) Branch strip blood sugar 2021-0 Yes [id number] Use as [facility] diagnostic 4- directed ity o f (ACCU-CHEK 00:00: [place] [facility] 00 Medical TEST STRIP) Branch strip blood sugar 2021-0 Yes [id number] Use as [facility] diagnostic 4- directed ity o f (ACCU-CHEK 00:00: [place] [facility] 00 Medical TEST STRIP) Branch strip blood sugar 2021-0 Yes [id number] Use as [facility] diagnostic 4- directed ity o f (ACCU-CHEK 00:00: [place] [facility] 00 Medical TEST STRIP) Branch strip blood sugar 2021-0 Yes [id number] Use as [facility] diagnostic 4- directed ity o f (ACCU-CHEK 00:00: [place] [facility] 00 Medical TEST STRIP) Branch strip blood sugar 2021-0 Yes [id number] Use as [facility] diagnostic 4- directed ity o f (ACCU-CHEK 00:00: [place] [facility] 00 Medical TEST STRIP) Branch strip blood sugar 2021-0 Yes [id number] Use as [facility] diagnostic 4- directed ity o f (ACCU-CHEK 00:00: [place] [facility] 00 Medical TEST STRIP) Branch strip blood sugar 2021-0 Yes [id number] Use as [facility] diagnostic 4-02 directed ity o f (ACCU-CHEK 00:00: [place] [facility] 00 Medical TEST STRIP) Branch strip blood sugar 2-0 Yes [id number] Use as [facility] diagnostic 4-02 directed ity o f (ACCU-CHEK 00:00: [place] [facility] 00 Medical TEST STRIP) Branch strip blood sugar 2-0 Yes [id number] Use as [facility] diagnostic 4-02 directed ity o f (ACCU-CHEK 00:00: [place] [facility] 00 Medical TEST STRIP) Branch strip blood sugar 2022-0 Yes [id number] Use as [facility] diagnostic 4-02 directed ity o f (ACCU-CHEK 00:00: [place] [facility] 00 Medical TEST STRIP) Branch strip blood sugar 2021-0 Yes [id number] Use as [facility] diagnostic 4-02 directed ity o f (ACCU-CHEK 00:00: [place] [facility] 00 Medical TEST STRIP) Branch strip blood sugar 2-0 Yes [id number] Use as [facility] diagnostic 4-02 directed ity o f (ACCU-CHEK 00:00: [place] [facility] 00 Medical TEST STRIP) Branch strip blood sugar 2021-0 Yes [id number] Use as [facility] diagnostic 4-02 directed ity o f (ACCU-CHEK 00:00: [place] [facility] 00 Medical TEST STRIP) Branch strip blood sugar 2021-0 Yes [id number] Use as [facility] diagnostic 4- directed ity o f (ACCU-CHEK 00:00: [place] [facility] 00 Medical TEST STRIP) Branch strip blood sugar 2021-0 Yes [id number] Use as [facility] diagnostic 4- directed ity o f (ACCU-CHEK 00:00: [place] [facility] 00 Medical TEST STRIP) Branch strip blood sugar 2021-0 Yes [id number] Use as [facility] diagnostic 4- directed ity o f (ACCU-CHEK 00:00: [place] [facility] 00 Medical TEST STRIP) Branch strip blood sugar 2021-0 Yes [id number] Use as [facility] diagnostic 4- directed ity o f (ACCU-CHEK 00:00: [place] [facility] 00 Medical TEST STRIP) Branch strip blood sugar 2-0 Yes [id number] Use as [facility] diagnostic 4- directed ity o f (ACCU-CHEK 00:00: [place] [facility] 00 Medical TEST STRIP) Branch strip blood sugar 2022-0 Yes [id number] Use as [facility] diagnostic 4-02 directed ity o f (ACCU-CHEK 00:00: [place] [facility] 00 Medical TEST STRIP) Branch strip blood sugar 2022-0 Yes [id number] Use as [facility] diagnostic 4-02 directed ity o f (ACCU-CHEK 00:00: [place] [facility] 00 Medical TEST STRIP) Branch strip blood sugar 2022-0 Yes [id number] Use as [facility] diagnostic 4-02 directed ity o f (ACCU-CHEK 00:00: [place] [facility] 00 Medical TEST STRIP) Branch strip blood sugar 2022-0 Yes [id number] Use as [facility] diagnostic 4-02 directed ity o f (ACCU-CHEK 00:00: [place] [facility] 00 Medical TEST STRIP) Branch strip blood sugar 2022-0 Yes [id number] Use as [facility] diagnostic 4-02 directed ity o f (ACCU-CHEK 00:00: [place] [facility] 00 Medical TEST STRIP) Branch strip blood sugar 2022-0 Yes [id number] Use as [facility] diagnostic 4-02 directed ity o f (ACCU-CHEK 00:00: [place] [facility] 00 Medical TEST STRIP) Branch strip blood sugar 2022-0 Yes [id number] Use as [facility] diagnostic 4-02 directed ity o f (ACCU-CHEK 00:00: [place] [facility] 00 Medical TEST STRIP) Branch strip blood sugar 2-0 Yes [id number] Use as [facility] diagnostic 4- directed ity o f (ACCU-CHEK 00:00: [place] [facility] 00 Medical TEST STRIP) Branch strip blood sugar 2-0 Yes [id number] Use as [facility] diagnostic 4- directed ity o f (ACCU-CHEK 00:00: [place] [facility] 00 Medical TEST STRIP) Branch strip blood sugar 2-0 Yes [id number] Use as [facility] diagnostic 4- directed ity o f (ACCU-CHEK 00:00: [place] [facility] 00 Medical TEST STRIP) Branch strip blood sugar 2-0 Yes [id number] Use as [facility] diagnostic 4- directed ity o f (ACCU-CHEK 00:00: [place] [facility] 00 Medical TEST STRIP) Branch strip blood sugar 2-0 Yes [id number] Use as [facility] diagnostic 4- directed ity o f (ACCU-CHEK 00:00: [place] [facility] 00 Medical TEST STRIP) Branch strip blood sugar 2022-0 Yes [id number] Use as [facility] diagnostic 4-02 directed ity o f (ACCU-CHEK 00:00: [place] [facility] 00 Medical TEST STRIP) Branch strip blood sugar 2022-0 Yes [id number] Use as [facility] diagnostic 4-02 directed ity o f (ACCU-CHEK 00:00: [place] [facility] 00 Medical TEST STRIP) Branch strip blood sugar 2022-0 Yes [id number] Use as [facility] diagnostic 4-02 directed ity o f (ACCU-CHEK 00:00: [place] [facility] 00 Medical TEST STRIP) Branch strip blood sugar 2-0 Yes [id number] Use as [facility] diagnostic 4-02 directed ity o f (ACCU-CHEK 00:00: [place] [facility] 00 Medical TEST STRIP) Branch strip blood sugar 2-0 Yes [id number] Use as [facility] diagnostic 4-02 directed ity o f (ACCU-CHEK 00:00: [place] [facility] 00 Medical TEST STRIP) Branch strip blood sugar 2021-0 Yes [id number] Use as [facility] diagnostic 4- directed ity o f (ACCU-CHEK 00:00: [place] [facility] 00 Medical TEST STRIP) Branch strip blood sugar 2021-0 Yes [id number] Use as [facility] diagnostic 4- directed ity o f (ACCU-CHEK 00:00: [place] [facility] 00 Medical TEST STRIP) Branch strip blood sugar 2021-0 Yes [id number] Use as [facility] diagnostic 4- directed ity o f (ACCU-CHEK 00:00: [place] [facility] 00 Medical TEST STRIP) Branch strip blood sugar 2021-0 Yes [id number] Use as [facility] diagnostic 4- directed ity o f (ACCU-CHEK 00:00: [place] [facility] 00 Medical TEST STRIP) Branch strip blood sugar 2021-0 Yes [id number] Use as [facility] diagnostic 4- directed ity o f (ACCU-CHEK 00:00: [place] [facility] 00 Medical TEST STRIP) Branch strip blood sugar 2-0 Yes [id number] Use as [facility] diagnostic 4- directed ity o f (ACCU-CHEK 00:00: [place] [facility] 00 Medical TEST STRIP) Branch strip blood sugar 2-0 Yes [id number] Use as [facility] diagnostic 4-02 directed ity o f (ACCU-CHEK 00:00: [place] [facility] 00 Medical TEST STRIP) Branch strip blood sugar 2-0 Yes [id number] Use as [facility] diagnostic 4-02 directed ity o f (ACCU-CHEK 00:00: [place] [facility] 00 Medical TEST STRIP) Branch strip blood sugar 2022-0 Yes [id number] Use as [facility] diagnostic 4-02 directed ity o f (ACCU-CHEK 00:00: [place] [facility] 00 Medical TEST STRIP) Branch strip blood sugar 2022-0 Yes [id number] Use as [facility] diagnostic 4-02 directed ity o f (ACCU-CHEK 00:00: [place] [facility] 00 Medical TEST STRIP) Branch strip blood sugar 2022-0 Yes [id number] Use as [facility] diagnostic 4-02 directed ity o f (ACCU-CHEK 00:00: [place] [facility] 00 Medical TEST STRIP) Branch strip blood sugar 2022-0 Yes [id number] Use as [facility] diagnostic 4-02 directed ity o f (ACCU-CHEK 00:00: [place] [facility] 00 Medical TEST STRIP) Branch strip blood sugar 2022-0 Yes [id number] Use as [facility] diagnostic 4-02 directed ity o f (ACCU-CHEK 00:00: [place] [facility] 00 Medical TEST STRIP) Branch strip blood sugar 2022-0 Yes [id number] Use as [facility] diagnostic 4- directed ity o f (ACCU-CHEK 00:00: [place] [facility] 00 Medical TEST STRIP) Branch strip blood sugar 2022-0 Yes [id number] Use as [facility] diagnostic 4- directed ity o f (ACCU-CHEK 00:00: [place] [facility] 00 Medical TEST STRIP) Branch strip blood sugar 2022-0 Yes [id number] Use as [facility] diagnostic 4- directed ity o f (ACCU-CHEK 00:00: [place] [facility] 00 Medical TEST STRIP) Branch strip blood sugar 2022-0 Yes [id number] Use as [facility] diagnostic 4- directed ity o f (ACCU-CHEK 00:00: [place] [facility] 00 Medical TEST STRIP) Branch strip blood sugar 2022-0 Yes [id number] Use as [facility] diagnostic 4- directed ity o f (ACCU-CHEK 00:00: [place] [facility] 00 Medical TEST STRIP) Branch strip blood sugar 2022-0 Yes [id number] Use as [facility] diagnostic 4-02 directed ity o f (ACCU-CHEK 00:00: [place] [facility] 00 Medical TEST STRIP) Branch strip blood sugar 2022-0 Yes [id number] Use as [facility] diagnostic 4-02 directed ity o f (ACCU-CHEK 00:00: [place] [facility] 00 Medical TEST STRIP) Branch strip blood sugar 2022-0 Yes [id number] Use as [facility] diagnostic 4-02 directed ity o f (ACCU-CHEK 00:00: [place] [facility] 00 Medical TEST STRIP) Branch strip blood sugar 2022-0 Yes [id number] Use as [facility] diagnostic 08-12 directed ity o f (ACCU-CHEK 00:00: [place] [facility] 00 Medical TEST STRIP) Branch strip blood sugar 2021-0 Yes [id number] Use as [facility] diagnostic 08-12 directed ity o f (ACCU-CHEK 00:00: [place] [facility] 00 Medical TEST STRIP) Branch strip blood sugar 2021-0 Yes [id number] Use as [facility] diagnostic 08-12 directed ity o f (ACCU-CHEK 00:00: [place] [facility] 00 Medical TEST STRIP) Branch strip blood sugar 2021-0 Yes [id number] Use as [facility] diagnostic 08-12 directed ity o f (ACCU-CHEK 00:00: [place] [facility] 00 Medical TEST STRIP) Branch strip blood sugar 2021-0 2022- No [id number] Use as [facility] diagnostic 08-12 directed ity of (ACCU-CHEK 00:00: 00:00 [place] [facility] 00 :00 Medical TEST STRIP) Branch strip blood sugar 2021-0 3- No [id number] Use as [facility] diagnostic 08-12 directed ity of (ACCU-CHEK 00:00: 00:00 [place] [facility] 00 :00 Medical TEST STRIP) Branch strip blood sugar 2021-0 3- No [id number] Use as [facility] diagnostic 08-12 directed ity of (ACCU-CHEK 00:00: 00:00 [place] [facility] 00 :00 Medical TEST STRIP) Branch strip blood sugar 2021-0 2023- No [id number] Use as [facility] diagnostic 08-12 directed ity of (ACCU-CHEK 00:00: 00:00 [place] [facility] 00 :00 Medical TEST STRIP) Branch strip rosuvastati 2021-0 Yes [id number] 5mg Take 1 [facility] n 5 mg 3-23 tablet by ity of tablet 00:00: mouth [place] 00 daily. Medical Branch rosuvastati 2021-0 Yes [id number] 5mg Take 1 [facility] n 5 mg 3-23 tablet by ity of tablet 00:00: mouth [place] 00 daily. Medical Branch rosuvastati 2021-0 Yes [id number] 5mg Take 1 [facility] n 5 mg 3-23 tablet by ity of tablet 00:00: mouth [place] 00 daily. Medical Branch rosuvastati Yes [id number] 5mg Take 1 [facility] n 5 mg 3-23 tablet by ity of tablet 00:00: mouth [place] 00 daily. [facility] Branch rosuvastati Yes [id number] 5mg Take 1 [facility] n 5 mg 3-23 tablet by ity of tablet 00:00: mouth [place] 00 daily. [facility] Branch rosuvastati Yes [id number] 5mg Take 1 [facility] n 5 mg 3-23 tablet by ity of tablet 00:00: mouth [place] 00 daily. [facility] Branch rosuvastati Yes [id number] 5mg Take 1 [facility] n 5 mg 3-23 tablet by ity of tablet 00:00: mouth [place] 00 daily. [facility] Branch rosuvastati Yes [id number] 5mg Take 1 [facility] n 5 mg 3-23 tablet by ity of tablet 00:00: mouth [place] 00 daily. [facility] Branch rosuvastati Yes [id number] 5mg Take 1 [facility] n 5 mg 3-23 tablet by ity of tablet 00:00: mouth [place] 00 daily. [facility] rosuvastati Yes [id number] 5mg Take 1 [facility] n 5 mg 3-23 tablet by ity of tablet 00:00: mouth [place] 00 daily. [facility] Branch rosuvastati Yes [id number] 5mg Take 1 [facility] n 5 mg 3-23 tablet by ity of tablet 00:00: mouth [place] 00 daily. [facility] Branch rosuvastati Yes [id number] 5mg Take 1 [facility] n 5 mg 3-23 tablet by ity of tablet 00:00: mouth [place] 00 daily. [facility] Branch rosuvastati Yes [id number] 5mg Take 1 [facility] n 5 mg 3-23 tablet by ity of tablet 00:00: mouth [place] 00 daily. [facility] Branch rosuvastati Yes [id number] 5mg Take 1 [facility] n 5 mg 3-23 tablet by ity of tablet 00:00: mouth [place] 00 daily. [facility] rosuvastati Yes [id number] 5mg Take 1 [facility] n 5 mg 3-23 tablet by ity of tablet 00:00: mouth [place] 00 daily. [facility] rosuvastati Yes [id number] 5mg Take 1 [facility] n 5 mg 3-23 tablet by ity of tablet 00:00: mouth [place] 00 daily. Medical Branch rosuvastati Yes [id number] 5mg Take 1 [facility] n 5 mg 3-23 tablet by ity of tablet 00:00: mouth [place] 00 daily. Medical Branch rosuvastati Yes [id number] 5mg Take 1 [facility] n 5 mg 3-23 tablet by ity of tablet 00:00: mouth [place] 00 daily. Medical Branch rosuvastati Yes [id number] 5mg Take 1 [facility] n 5 mg 3-23 tablet by ity of tablet 00:00: mouth [place] 00 daily. Medical Branch rosuvastati Yes [id number] 5mg Take 1 [facility] n 5 mg 3-23 tablet by ity of tablet 00:00: mouth [place] 00 daily. Medical Branch rosuvastati Yes [id number] 5mg Take 1 [facility] n 5 mg 3-23 tablet by ity of tablet 00:00: mouth [place] 00 daily. Medical Branch rosuvastati Yes [id number] 5mg Take 1 [facility] n 5 mg 3-23 tablet by ity of tablet 00:00: mouth [place] 00 daily. Medical Branch rosuvastati Yes [id number] 5mg Take 1 [facility] n 5 mg 3-23 tablet by ity of tablet 00:00: mouth [place] 00 daily. Medical Branch rosuvastati Yes [id number] 5mg Take 1 [facility] n 5 mg 3-23 tablet by ity of tablet 00:00: mouth [place] 00 daily. Medical Branch rosuvastati Yes [id number] 5mg Take 1 [facility] n 5 mg 3-23 tablet by ity of tablet 00:00: mouth [place] 00 daily. [facility] Branch rosuvastati Yes [id number] 5mg Take 1 [facility] n 5 mg 3-23 tablet by ity of tablet 00:00: mouth [place] 00 daily. [facility] Branch rosuvastati Yes [id number] 5mg Take 1 [facility] n 5 mg 3-23 tablet by ity of tablet 00:00: mouth [place] 00 daily. [facility] Branch rosuvastati Yes [id number] 5mg Take 1 [facility] n 5 mg 3-23 tablet by ity of tablet 00:00: mouth [place] 00 daily. [facility] Branch rosuvastati Yes [id number] 5mg Take 1 [facility] n 5 mg 3-23 tablet by ity of tablet 00:00: mouth [place] 00 daily. [facility] rosuvastati Yes [id number] 5mg Take 1 [facility] n 5 mg 3-23 tablet by ity of tablet 00:00: mouth [place] 00 daily. [facility] rosuvastati Yes [id number] 5mg Take 1 [facility] n 5 mg 3-23 tablet by ity of tablet 00:00: mouth [place] 00 daily. [facility] rosuvastati Yes [id number] 5mg Take 1 [facility] n 5 mg 3-23 tablet by ity of tablet 00:00: mouth [place] 00 daily. [facility] rosuvastati Yes [id number] 5mg Take 1 [facility] n 5 mg 3-23 tablet by ity of tablet 00:00: mouth [place] 00 daily. [facility] Branch rosuvastati Yes [id number] 5mg Take 1 [facility] n 5 mg 3-23 tablet by ity of tablet 00:00: mouth [place] 00 daily. [facility] rosuvastati Yes [id number] 5mg Take 1 [facility] n 5 mg 3-23 tablet by ity of tablet 00:00: mouth [place] 00 daily. [facility] Branch rosuvastati Yes [id number] 5mg Take 1 [facility] n 5 mg 3-23 tablet by ity of tablet 00:00: mouth [place] 00 daily. [facility] rosuvastati Yes [id number] 5mg Take 1 [facility] n 5 mg 3-23 tablet by ity of tablet 00:00: mouth [place] 00 daily. [facility] rosuvastati Yes [id number] 5mg Take 1 [facility] n 5 mg 3-23 tablet by ity of tablet 00:00: mouth [place] 00 daily. [facility] rosuvastati Yes [id number] 5mg Take 1 [facility] n 5 mg 3-23 tablet by ity of tablet 00:00: mouth [place] 00 daily. [facility] rosuvastati Yes [id number] 5mg Take 1 [facility] n 5 mg 3-23 tablet by ity of tablet 00:00: mouth [place] 00 daily. [facility] rosuvastati Yes [id number] 5mg Take 1 [facility] n 5 mg 3-23 tablet by ity of tablet 00:00: mouth [place] 00 daily. Medical Branch rosuvastati Yes [id number] 5mg Take 1 [facility] n 5 mg 3-23 tablet by ity of tablet 00:00: mouth [place] 00 daily. Medical Branch rosuvastati Yes [id number] 5mg Take 1 [facility] n 5 mg 3-23 tablet by ity of tablet 00:00: mouth [place] 00 daily. Medical Branch rosuvastati Yes [id number] 5mg Take 1 [facility] n 5 mg 3-23 tablet by ity of tablet 00:00: mouth [place] 00 daily. [facility] Branch rosuvastati Yes [id number] 5mg Take 1 [facility] n 5 mg 3-23 tablet by ity of tablet 00:00: mouth [place] 00 daily. [facility] Branch rosuvastati Yes [id number] 5mg Take 1 [facility] n 5 mg 3-23 tablet by ity of tablet 00:00: mouth [place] 00 daily. [facility] Branch rosuvastati Yes [id number] 5mg Take 1 [facility] n 5 mg 3-23 tablet by ity of tablet 00:00: mouth [place] 00 daily. [facility] Branch rosuvastati Yes [id number] 5mg Take 1 [facility] n 5 mg 3-23 tablet by ity of tablet 00:00: mouth [place] 00 daily. [facility] Branch rosuvastati Yes [id number] 5mg Take 1 [facility] n 5 mg 3-23 tablet by ity of tablet 00:00: mouth [place] 00 daily. [facility] Branch rosuvastati Yes [id number] 5mg Take 1 [facility] n 5 mg 3-23 tablet by ity of tablet 00:00: mouth [place] 00 daily. [facility] rosuvastati Yes [id number] 5mg Take 1 [facility] n 5 mg 3-23 tablet by ity of tablet 00:00: mouth [place] 00 daily. [facility] rosuvastati Yes [id number] 5mg Take 1 [facility] n 5 mg 3-23 tablet by ity of tablet 00:00: mouth [place] 00 daily. [facility] rosuvastati Yes [id number] 5mg Take 1 [facility] n 5 mg 3-23 tablet by ity of tablet 00:00: mouth [place] 00 daily. [facility] rosuvastati Yes [id number] 5mg Take 1 [facility] n 5 mg 3-23 tablet by ity of tablet 00:00: mouth [place] 00 daily. [facility] rosuvastati Yes [id number] 5mg Take 1 [facility] n 5 mg 3-23 tablet by ity of tablet 00:00: mouth [place] 00 daily. [facility] rosuvastati Yes [id number] 5mg Take 1 [facility] n 5 mg 3-23 tablet by ity of tablet 00:00: mouth [place] 00 daily. [facility] rosuvastati Yes [id number] 5mg Take 1 [facility] n 5 mg 3-23 tablet by ity of tablet 00:00: mouth [place] 00 daily. [facility] rosuvastati Yes [id number] 5mg Take 1 [facility] n 5 mg 3-23 tablet by ity of tablet 00:00: mouth [place] 00 daily. [facility] rosuvastati Yes [id number] 5mg Take 1 [facility] n 5 mg 3-23 tablet by ity of tablet 00:00: mouth [place] 00 daily. [facility] rosuvastati Yes [id number] 5mg Take 1 [facility] n 5 mg 3-23 tablet by ity of tablet 00:00: mouth [place] 00 daily. [facility] rosuvastati Yes [id number] 5mg Take 1 [facility] n 5 mg 3-23 tablet by ity of tablet 00:00: mouth [place] 00 daily. [facility] rosuvastati Yes [id number] 5mg Take 1 [facility] n 5 mg 3-23 tablet by ity of tablet 00:00: mouth [place] 00 daily. [facility] rosuvastati Yes [id number] 5mg Take 1 [facility] n 5 mg 3-23 tablet by ity of tablet 00:00: mouth [place] 00 daily. [facility] rosuvastati Yes [id number] 5mg Take 1 [facility] n 5 mg 3-23 tablet by ity of tablet 00:00: mouth [place] 00 daily. [facility] rosuvastati Yes [id number] 5mg Take 1 [facility] n 5 mg 3-23 tablet by ity of tablet 00:00: mouth [place] 00 daily. [facility] pantoprazol Yes 40mg Take 40 mg Univers e 40 mg EC 3-18 by mouth ity o f tablet 00:00: daily. [place] [facility] ondansetron 2-0 Yes TAKE 1 Univ ers 4 mg tablet 3-18 TABLET BY ity of 00:00: MOUTH [place] EVERY 12 Medical HOURS Branch NEEDED dicyclomine 2-0 Yes 20mg Take 20 mg [facility] 20 mg 3-18 by mouth 4 ity of tablet 00:00: (four) [place] times Medical daily. Branch pantoprazol 2-0 Yes 40mg Take 40 mg [facility] e 40 mg EC 3-18 by mouth ity o f tablet 00:00: daily. [place] [facility] ondansetron 2-0 Yes TAKE 1 [facility] ers 4 mg tablet 3-18 TABLET BY ity of 00:00: MOUTH [place] EVERY 12 Medical HOURS Branch NEEDED dicyclomine 2-0 Yes 20mg Take 20 mg [facility] 20 mg 3-18 by mouth 4 ity of tablet 00:00: (four) [place] times Medical daily. Branch pantoprazol 2-0 Yes 40mg Take 40 mg [facility] e 40 mg EC 3-18 by mouth ity o f tablet 00:00: daily. [place] [facility] ondansetron 2-0 Yes TAKE 1 [facility] ers 4 mg tablet 3-18 TABLET BY ity of 00:00: MOUTH [place] EVERY 12 Medical HOURS Branch NEEDED dicyclomine 2-0 Yes 20mg Take 20 mg [facility] 20 mg 3-18 by mouth 4 ity of tablet 00:00: (four) [place] times Medical daily. Branch pantoprazol 2-0 Yes 40mg Take 40 mg [facility] e 40 mg EC 3-18 by mouth ity o f tablet 00:00: daily. [place] [facility] ondansetron 2-0 Yes TAKE 1 [facility] ers 4 mg tablet 3-18 TABLET BY ity of 00:00: MOUTH [place] EVERY 12 Medical HOURS Branch NEEDED dicyclomine 2-0 Yes 20mg Take 20 mg [facility] 20 mg 3-18 by mouth 4 ity of tablet 00:00: (four) [place] times Medical daily. Branch pantoprazol 2022-0 Yes 40mg Take 40 mg [facility] e 40 mg EC 3-18 by mouth ity o f tablet 00:00: daily. [place] [facility] ondansetron 2-0 Yes TAKE 1 [facility] ers 4 mg tablet 3-18 TABLET BY ity of 00:00: MOUTH [place] 00 EVERY 12 Medical HOURS Branch NEEDED dicyclomine 2022-0 Yes 20mg Take 20 mg [facility] 20 mg 3-18 by mouth 4 ity of tablet 00:00: (four) [place] 00 times Medical daily. Branch pantoprazol 2022-0 Yes 40mg Take 40 mg [facility] e 40 mg EC 3-18 by mouth ity o f tablet 00:00: daily. [place] [facility] ondansetron 2-0 Yes TAKE 1 [facility] ers 4 mg tablet 3-18 TABLET BY ity of 00:00: MOUTH [place] EVERY 12 Medical HOURS Branch NEEDED dicyclomine 2-0 Yes 20mg Take 20 mg [facility] 20 mg 3-18 by mouth 4 ity of tablet 00:00: (four) [place] 00 times Medical daily. Branch pantoprazol 2-0 Yes 40mg Take 40 mg [facility] e 40 mg EC 3-18 by mouth ity o f tablet 00:00: daily. [place] [facility] ondansetron 2-0 Yes TAKE 1 Univ ers 4 mg tablet 3-18 TABLET BY ity of 00:00: MOUTH [place] EVERY 12 Medical HOURS Branch NEEDED dicyclomine 2-0 Yes 20mg Take 20 mg [facility] 20 mg 3-18 by mouth 4 ity of tablet 00:00: (four) [place] 00 times Medical daily. Branch pantoprazol 2-0 Yes 40mg Take 40 mg [facility] e 40 mg EC 3-18 by mouth ity o f tablet 00:00: daily. [place] [facility] ondansetron 2-0 Yes TAKE 1 Univ ers 4 mg tablet 3-18 TABLET BY ity of 00:00: MOUTH [place] EVERY 12 Medical HOURS Branch NEEDED dicyclomine 2-0 Yes 20mg Take 20 mg [facility] 20 mg 3-18 by mouth 4 ity of tablet 00:00: (four) [place] 00 times Medical daily. Branch pantoprazol 2022-0 Yes 40mg Take 40 mg [facility] e 40 mg EC 3-18 by mouth ity o f tablet 00:00: daily. [place] [facility] ondansetron 2022-0 Yes TAKE 1 Univ ers 4 mg tablet 3-18 TABLET BY ity of 00:00: MOUTH [place] EVERY 12 Medical HOURS Branch NEEDED dicyclomine 2022-0 Yes 20mg Take 20 mg [facility] 20 mg 18 by mouth 4 ity of tablet 00:00: (four) [place] 00 times Medical daily. Branch pantoprazol Yes 40mg Take 40 mg Univers e 40 mg EC -18 by mouth ity o f tablet 00:00: daily. [place] 00 Medical Branch ondansetron Yes TAKE 1 Univ ers 4 mg tablet 07-28 TABLET BY ity of 00:00: MOUTH [place] 00 EVERY 12 Medical HOURS Branch NEEDED dicyclomine 2021-0 Yes 20mg Take 20 mg Univers 20 mg -18 by mouth 4 ity of tablet 00:00: (four) [place] 00 times Medical daily. Branch pantoprazol 2021-2021- No 40mg Take 40 mg [facility] e 40 mg EC 07-28 by mouth ity of tablet 00:00: 00:00 daily. [place] 00 :00 Medical Branch ondansetron 2021-2021- No TAKE 1 Uni vers 4 mg tablet 07-28 TABLET BY it y of 00:00: 00:00 MOUTH [place] 00 :00 EVERY 12 Medical HOURS Branch NEEDED dicyclomine 2021-0 2021- No 20mg Take 20 mg [facility] 20 mg 07-28 by mouth 4 ity of tablet 00:00: 00:00 (four) [place] 00 :00 times Medical daily. Branch pantoprazol 2021-0 2021- No 40mg Take 40 mg [facility] e 40 mg EC 07-28 by mouth ity of tablet 00:00: 00:00 daily. [place] 00 :00 Medical Branch ondansetron 2021-0 2021- No TAKE 1 Uni vers 4 mg tablet 07-28 TABLET BY it y of 00:00: 00:00 MOUTH [place] 00 :00 EVERY 12 Medical HOURS Branch NEEDED dicyclomine 2021-0 2021- No 20mg Take 20 mg Univers 20 mg 18 02-02 by mouth 4 ity of tablet 00:00: 00:00 (four) [place] 00 :00 times Medical daily. Branch montelukast Yes 10mg Take 10 mg Univers (SINGULAIR) 3-11 by mouth. ity of 10 mg 14:26: [place] tablet 11 Medical Branch montelukast 2022-0 Yes 10mg Take 10 mg Univers (SINGULAIR) 3-11 by mouth. ity of 10 mg 14:26: [place] tablet 11 Medical Branch montelukast 0 Yes 10mg Take 10 mg Univers (SINGULAIR) 3-11 by mouth. ity of 10 mg 14:26: [place] tablet 11 Medical Branch montelukast 2021-0 Yes 10mg Take 10 mg Univers (SINGULAIR) 3-11 by mouth. ity of 10 mg 14:26: [place] tablet 11 Medical Branch metFORMIN 2021-0 2021- No [id number] 1000mg Take 1 Univers 1,000 mg 3-04 - tablet by ity o f tablet 00:00: 00:00 mouth 2 [place] 00 :00 (two) Medical times Branch daily with meals. cyclobenzap 0 Yes TAKE 1 Univ ers rine 10 [...] TWICE Medical DAILY Branch DIRECTED pregabalin 2022-0 2023- No TAKE 1 Univ ers 200 mg 2-15 -19 CAPSULE BY ity of capsule 00:00: 00:00 MOUTH [place] 00 :00 TWICE Medical DAILY Branch DIRECTED pregabalin 2022-0 2023- No TAKE 1 Univ ers 200 mg 2-15 -19 CAPSULE BY ity of capsule 00:00: 00:00 MOUTH [place] 00 :00 TWICE Medical DAILY Branch DIRECTED albuterol 2018-05 Yes [id number] 2{puff} Inhale 2 Univers (PROAIR 2-17 Puffs ity of HFA) 90 00:00: every 6 [place] mcg/actuati 00 (six) Medical on inhaler hours as Branc h needed for Wheezing, Shortness of Breath or Chest tightness. albuterol 2018-05 Yes [id number] 2{puff} Inhale 2 Univers (PROAIR 2-17 Puffs ity of HFA) 90 00:00: every 6 [place] mcg/actuati 00 (six) Medical on inhaler hours as Branc h needed for Wheezing, Shortness of Breath or Chest tightness. albuterol 2018-05 Yes [id number] 2{puff} Inhale 2 Univers (PROAIR 2-17 Puffs ity of HFA) 90 00:00: every 6 [place] mcg/actuati 00 (six) Medical on inhaler hours as Branc h needed for Wheezing, Shortness of Breath or Chest tightness. albuterol 2018-05 Yes [id number] 2{puff} Inhale 2 Univers (PROAIR 2-17 Puffs ity of HFA) 90 00:00: every 6 [place] mcg/actuati 00 (six) Medical on inhaler hours as Branc h needed for Wheezing, Shortness of Breath or Chest tightness. albuterol 2018-05 Yes [id number] 2{puff} Inhale 2 Univers (PROAIR 2-17 Puffs ity of HFA) 90 00:00: every 6 [place] mcg/actuati 00 (six) Medical on inhaler hours as Branc h needed for Wheezing, Shortness of Breath or Chest tightness. albuterol 2018-05 Yes [id number] 2{puff} Inhale 2 Univers (PROAIR 2-17 Puffs ity of HFA) 90 00:00: every 6 [place] mcg/actuati 00 (six) Medical on inhaler hours as Branc h needed for Wheezing, Shortness of Breath or Chest tightness. albuterol 2018-05 Yes [id number] 2{puff} Inhale 2 [facility] (PROAIR 2-17 Puffs ity of HFA) 90 00:00: every 6 [place] mcg/actuati 00 (six) Medical on inhaler hours as Branc h needed for Wheezing, Shortness of Breath or Chest tightness. albuterol 2018-05 Yes [id number] 2{puff} Inhale 2 Univers (PROAIR 2-17 Puffs ity of HFA) 90 00:00: every 6 [place] mcg/actuati 00 (six) Medical on inhaler hours as Branc h needed for Wheezing, Shortness of Breath or Chest tightness. albuterol 2018-05 Yes [id number] 2{puff} Inhale 2 Univers (PROAIR 2-17 Puffs ity of HFA) 90 00:00: every 6 [place] mcg/actuati 00 (six) Medical on inhaler hours as Branc h needed for Wheezing, Shortness of Breath or Chest tightness. albuterol 2018-05 Yes [id number] 2{puff} Inhale 2 Univers (PROAIR 2-17 Puffs ity of HFA) 90 00:00: every 6 [place] mcg/actuati 00 (six) Medical on inhaler hours as Branc h needed for Wheezing, Shortness of Breath or Chest tightness. albuterol 2018-05 Yes [id number] 2{puff} Inhale 2 Univers (PROAIR 2-17 Puffs ity of HFA) 90 00:00: every 6 [place] mcg/actuati 00 (six) Medical on inhaler hours as Branc h needed for Wheezing, Shortness of Breath or Chest tightness. albuterol 2018-05 Yes [id number] 2{puff} Inhale 2 Univers (PROAIR 2-17 Puffs ity of HFA) 90 00:00: every 6 [place] mcg/actuati 00 (six) Medical on inhaler hours as Branc h needed for Wheezing, Shortness of Breath or Chest tightness. albuterol 2018-05 Yes [id number] 2{puff} Inhale 2 Univers (PROAIR 2-17 Puffs ity of HFA) 90 00:00: every 6 [place] mcg/actuati 00 (six) Medical on inhaler hours as Branc h needed for Wheezing, Shortness of Breath or Chest tightness. albuterol 2018-05 Yes [id number] 2{puff} Inhale 2 [facility] (PROAIR 2-17 Puffs ity of HFA) 90 00:00: every 6 [place] mcg/actuati 00 (six) Medical on inhaler hours as Branc h needed for Wheezing, Shortness of Breath or Chest tightness. albuterol 2018-05 Yes [id number] 2{puff} Inhale 2 Univers (PROAIR 2-17 Puffs ity of HFA) 90 00:00: every 6 [place] mcg/actuati 00 (six) Medical on inhaler hours as Branc h needed for Wheezing, Shortness of Breath or Chest tightness. albuterol 2018-05 Yes [id number] 2{puff} Inhale 2 Univers (PROAIR 2-17 Puffs ity of HFA) 90 00:00: every 6 [place] mcg/actuati 00 (six) Medical on inhaler hours as Branc h needed for Wheezing, Shortness of Breath or Chest tightness. albuterol 2018-05 Yes [id number] 2{puff} Inhale 2 [facility] (PROAIR 2-17 Puffs ity of HFA) 90 00:00: every 6 [place] mcg/actuati 00 (six) Medical on inhaler hours as Branc h needed for Wheezing, Shortness of Breath or Chest tightness. albuterol 2018-05 Yes [id number] 2{puff} Inhale 2 [facility] (PROAIR 2-17 Puffs ity of HFA) 90 00:00: every 6 [place] mcg/actuati 00 (six) Medical on inhaler hours as Branc h needed for Wheezing, Shortness of Breath or Chest tightness. albuterol 2018-05 Yes [id number] 2{puff} Inhale 2 [facility] (PROAIR 2-17 Puffs ity of HFA) 90 00:00: every 6 [place] mcg/actuati 00 (six) Medical on inhaler hours as Branc h needed for Wheezing, Shortness of Breath or Chest tightness. albuterol 2018-05 Yes [id number] 2{puff} Inhale 2 [facility] (PROAIR 2-17 Puffs ity of HFA) 90 00:00: every 6 [place] mcg/actuati 00 (six) Medical on inhaler hours as Branc h needed for Wheezing, Shortness of Breath or Chest tightness. albuterol 2018-05- No [id number] 2{puff} Inhale 2 [facility] (PROAIR 2-17 11-22 Puffs ity of HFA) 90 00:00: 00:00 every 6 [place] mcg/actuati 00 :00 (six) Medical on inhaler hours as Branc h needed for Wheezing, Shortness of Breath or Chest tightness. albuterol 2018-05- No [id number] 2{puff} Inhale 2 Univers (PROAIR 2-17 11-22 Puffs ity of HFA) 90 00:00: 00:00 every 6 [place] mcg/actuati 00 :00 (six) Medical on inhaler hours as Branc h needed for Wheezing, Shortness of Breath or Chest tightness. albuterol 2018-05- No [id number] 2{puff} Inhale 2 [facility] (PROAIR 2-17 11-22 Puffs ity of HFA) 90 00:00: 00:00 every 6 [place] mcg/actuati 00 :00 (six) Medical on inhaler hours as Branc h needed for Wheezing, Shortness of Breath or Chest tightness. albuterol 2018-05- No [id number] 2{puff} Inhale 2 [facility] (PROAIR 2-17 11-22 Puffs ity of HFA) 90 00:00: 00:00 every 6 [place] mcg/actuati 00 :00 (six) Medical on inhaler hours as Branc h needed for Wheezing, Shortness of Breath or Chest tightness. albuterol 2018-05- No [id number] 2{puff} Inhale 2 [facility] (PROAIR 2-17 11-22 [...] hours as needed for nausea or vomiting. metFORMIN 2019-0 Yes 1000mg Q.5D Take 1,000 [...] tablet 08:46: daily. [facility] l rosuvastati 2019-0 Yes 10mg QD Take 10 [...] a 09 l LYRICA 200 Yes 1{tbl} Q.[id number] Take 1 [id number] [facility]:00: [facility]D [facility] ([facility]) l times a day. LYRICA 200 Yes 1{tbl} Q.[id number] Take 1 [id number] 00:00: 3D [facility] 00 (three) l times a day. LYRICA 200 Yes 1{tbl} Q.[id number] Take 1 [id number] 00:00: 3D mouth [facility] 00 (three) l times a day. LYRICA 200 Yes 1{tbl} Q.[id number] Take 1 [id number] 00:00: 3D mouth [facility] 00 (three) l times a day. LYRICA 200 Yes 1{tbl} Q.[id number] Take 1 [facility]-[id number] 00:00: 3D mouth [facility] 00 (three) l times a day. LYRICA 200 Yes 1{tbl} Q.[id number] Take 1 [facility]-[id number] 00:00: 3D mouth 3 [facility] 00 (three) l times a day. LYRICA 200 Yes 1{tbl} Q.[id number] Take 1 [id number] 00:00: 3D mouth 3 [facility] 00 (three) l times a day. LYRICA 200 Yes 1{tbl} Q.[id number] Take 1 [id number] 00:00: 3D mouth 3 [facility] 00 (three) l times a day. LYRICA 200 Yes 1{tbl} Q.[id number] Take 1 [id number] 00:00: 3D mouth 3 [facility] 00 (three) l times a day. LYRICA 200 Yes 1{tbl} Q.[id number] Take 1 [id number] 00:00: 3D mouth 3 [facility] 00 (three) l times a day. LYRICA 200 Yes 1{tbl} Q.[id number] Take 1 [facility]-[id number] 00:00: 3D mouth 3 [facility] 00 (three) l times a day. LYRICA 200 Yes 1{tbl} Q.[id number] Take 1 [facility] 5-[id number] 00:00: 3D mouth 3 [facility] 00 (three) l times a day. LYRICA 200 Yes 1{tbl} Q.[id number] Take 1 [facility] 5-[id number] 00:00: 3D mouth 3 [facility] 00 (three) l times a day. LYRICA 200 Yes 1{tbl} Q.[id number] Take 1 [facility] 5-[id number] 00:00: 3D mouth 3 [facility] 00 (three) l times a day. LYRICA 200 Yes 1{tbl} Q.[id number] Take 1 [facility] 5-[id number] 00:00: 3D mouth 3 [facility] 00 (three) l times a day. LYRICA 200 Yes 1{tbl} Q.[id number] Take 1 [facility] 5-[id number] 00:00: 3D mouth 3 [...] Completed Universit y of Conjugate, PCV20 00:00:00 [facility] dical (Prevnar 20) Branch Zoster Vaccine 2022-04-22 Completed University of Recombinant 00:00:00 [facility] Pneumococcal 20 2022-04-22 Completed Universit y of Conjugate, PCV20 00:00:00 [facility] dical (Prevnar 20) Branch Zoster Vaccine 2022-04-22 Completed University of Recombinant 00:00:00 [facility] Pneumococcal 20 2022-04-22 Completed Universit y of Conjugate, PCV20 00:00:00 [facility] dical (Prevnar 20) Branch Zoster Vaccine 2022-04-22 Completed University of Recombinant 00:00:00 [facility] Pneumococcal 20 2022-04-22 Completed Universit y of Conjugate, PCV20 00:00:00 [facility] dical (Prevnar 20) Branch Zoster Vaccine 2022-04-22 Completed University of Recombinant 00:00:00 [facility] Pneumococcal 20 2022-04-22 Completed Universit y of Conjugate, PCV20 00:00:00 [facility] dical (Prevnar 20) Branch Zoster Vaccine 2022-04-22 Completed University of Recombinant 00:00:00 [facility] Pneumococcal 20 2022-04-22 Completed Universit y of Conjugate, PCV20 00:00:00 [facility] dical (Prevnar 20) Branch Zoster Vaccine 2022-04-22 Completed University of Recombinant 00:00:00 [facility] Pneumococcal 20 2022-04-22 Completed Universit y of Conjugate, PCV20 00:00:00 [facility] dical (Prevnar 20) Branch Zoster Vaccine 2022-04-22 Completed University of Recombinant 00:00:00 [facility] Pneumococcal 20 2022-04-22 Completed Universit y of Conjugate, PCV20 00:00:00 [facility] dical (Prevnar 20) Branch Zoster Vaccine 2022-04-22 Completed University of Recombinant 00:00:00 [facility] Pneumococcal 20 2022-04-22 Completed Universit y of Conjugate, PCV20 00:00:00 [facility] dical (Prevnar 20) Branch Zoster Vaccine 2022-04-22 Completed University of Recombinant 00:00:00 [facility] Pneumococcal 20 2022-04-22 Completed Universit y of Conjugate, PCV20 00:00:00 [facility] dical (Prevnar 20) Branch Zoster Vaccine 2022-04-22 Completed University of Recombinant 00:00:00 [facility] Pneumococcal 20 2022-04-22 Completed Universit y of Conjugate, PCV20 00:00:00 [facility] dical (Prevnar 20) Branch Zoster Vaccine 2022-04-22 Completed University of Recombinant 00:00:00 [facility] Pneumococcal 20 2022-04-22 Completed Universit y of Conjugate, PCV20 00:00:00 [facility] dical (Prevnar 20) Branch Zoster Vaccine 2022-04-22 Completed University of Recombinant 00:00:00 [facility] Pneumococcal 20 2022-04-22 Completed Universit y of Conjugate, PCV20 00:00:00 [facility] dical (Prevnar 20) Branch Zoster Vaccine 2022-04-22 Completed University of Recombinant 00:00:00 [facility] Pneumococcal 20 2022-04-22 Completed Universit y of Conjugate, PCV20 00:00:00 [facility] dical (Prevnar 20) Branch Zoster Vaccine 2022-04-22 Completed University of Recombinant 00:00:00 [facility] Pneumococcal 20 2022-04-22 Completed Universit y of Conjugate, PCV20 00:00:00 [facility] dical (Prevnar 20) Branch Zoster Vaccine 2022-04-22 Completed University of Recombinant 00:00:00 [facility] Pneumococcal 20 2022-04-22 Completed Universit y of Conjugate, PCV20 00:00:00 [facility] dical (Prevnar 20) Branch Zoster Vaccine 2022-04-22 Completed University of Recombinant 00:00:00 [facility] Pneumococcal 20 2022-04-22 Completed Universit y of Conjugate, PCV20 00:00:00 [facility] dical (Prevnar 20) Branch Zoster Vaccine 2022-04-22 Completed University of Recombinant 00:00:00 [facility] Pneumococcal 20 2022-04-22 Completed Universit y of Conjugate, PCV20 00:00:00 [facility] dical (Prevnar 20) Branch Zoster Vaccine 2022-04-22 Completed University of Recombinant 00:00:00 [facility] Pneumococcal 20 2022-04-22 Completed Universit y of Conjugate, PCV20 00:00:00 [facility] dical (Prevnar 20) Branch Zoster Vaccine 2022-04-22 Completed University of Recombinant 00:00:00 [facility] Pneumococcal 20 2022-04-22 Completed Universit y of Conjugate, PCV20 00:00:00 [facility] dical (Prevnar 20) Branch Zoster Vaccine 2022-04-22 Completed University of Recombinant 00:00:00 [facility] Pneumococcal 20 2022-04-22 Completed Universit y of Conjugate, PCV20 00:00:00 [facility] dical (Prevnar 20) Branch Zoster Vaccine 2022-04-22 Completed University of Recombinant 00:00:00 [facility] Pneumococcal 20 2022-04-22 Completed Universit y of Conjugate, PCV20 00:00:00 [facility] dical (Prevnar 20) Branch Zoster Vaccine 2022-04-22 Completed University of Recombinant 00:00:00 [facility] Pneumococcal 20 2022-04-22 Completed Universit y of Conjugate, PCV20 00:00:00 [facility] dical (Prevnar 20) Branch Zoster Vaccine 2022-04-22 Completed University of Recombinant 00:00:00 [facility] Pneumococcal 20 2022-04-22 Completed Universit y of Conjugate, PCV20 00:00:00 [facility] dical (Prevnar 20) Branch Zoster Vaccine 2022-04-22 Completed University of Recombinant 00:00:00 [facility] Pneumococcal 20 2022-04-22 Completed Universit y of Conjugate, PCV20 00:00:00 [facility] dical (Prevnar 20) Branch Zoster Vaccine 2022-04-22 Completed University of Recombinant 00:00:00 [facility] Pneumococcal 20 2022-04-22 Completed Universit y of Conjugate, PCV20 00:00:00 [facility] dical (Prevnar 20) Branch Zoster Vaccine 2022-04-22 Completed University of Recombinant 00:00:00 [facility] Pneumococcal 20 2022-04-22 Completed Universit y of Conjugate, PCV20 00:00:00 [facility] dical (Prevnar 20) Branch Zoster Vaccine 2022-04-22 Completed University of Recombinant 00:00:00 [facility] Pneumococcal 20 2022-04-22 Completed Universit y of Conjugate, PCV20 00:00:00 [facility] dical (Prevnar 20) Branch Zoster Vaccine 2022-04-22 Completed University of Recombinant 00:00:00 [facility] Pneumococcal 20 2022-04-22 Completed Universit y of Conjugate, PCV20 00:00:00 [facility] dical (Prevnar 20) Branch Zoster Vaccine 2022-04-22 Completed University of Recombinant 00:00:00 [facility] Pneumococcal 20 2022-04-22 Completed Universit y of Conjugate, PCV20 00:00:00 [facility] dical (Prevnar 20) Branch Zoster Vaccine 2022-04-22 Completed University of Recombinant 00:00:00 [facility] Pneumococcal 20 2022-04-22 Completed Universit y of Conjugate, PCV20 00:00:00 [facility] dical (Prevnar 20) Branch Zoster Vaccine 2022-04-22 Completed University of Recombinant 00:00:00 [facility] Pneumococcal 20 2022-04-22 Completed Universit y of Conjugate, PCV20 00:00:00 [facility] dical (Prevnar 20) Branch Zoster Vaccine 2022-04-22 Completed [facility] of Recombinant 00:00:00 [facility] Pneumococcal 20 2022-04-22 Completed [facility] Conjugate, PCV20 00:00:00 [facility] dical (Prevnar 20) Branch Zoster Vaccine 2022-04-22 Completed [facility] of Recombinant 00:00:00 [facility] Pneumococcal 20 2022-04-22 Completed [facility] y of Conjugate, PCV20 00:00:00 [facility] dical (Prevnar 20) Branch Zoster Vaccine 2022-04-22 Completed [facility] Recombinant 00:00:00 [facility] Pneumococcal 20 2022-04-22 Completed [facility]it y of Conjugate, PCV20 00:00:00 [facility] dical (Prevnar 20) Branch Zoster Vaccine 2022-04-22 Completed [facility] Recombinant 00:00:00 [facility] Pneumococcal 20 2022-04-22 Completed [facility] y of Conjugate, PCV20 00:00:00 [place] [facility] (Prevnar 20) Branch Zoster Vaccine 2022-04-22 Completed [facility] Recombinant 00:00:00 [facility] Pneumococcal 20 2022-04-22 Completed [facility] y of Conjugate, PCV20 00:00:00 [facility] dical (Prevnar 20) Branch Zoster Vaccine 2022-04-22 Completed [facility] Recombinant 00:00:00 [facility] Pneumococcal 20 2022-04-22 Completed [facility] y of Conjugate, PCV20 00:00:00 [facility] dical (Prevnar 20) Branch Zoster Vaccine 2022-04-22 Completed [facility] Recombinant 00:00:00 [facility] Pneumococcal 20 2022-04-22 Completed [facility] y of Conjugate, PCV20 00:00:00 [facility] dical (Prevnar 20) Branch Zoster Vaccine 2022-04-22 Completed [facility] of Recombinant 00:00:00 [facility] Pneumococcal 20 2022-04-22 Completed [facility] y of Conjugate, PCV20 00:00:00 [facility] dical (Prevnar 20) Branch Zoster Vaccine 2022-04-22 Completed [facility] Recombinant 00:00:00 [facility] Pneumococcal 20 2022-04-22 Completed [facility] y of Conjugate, PCV20 00:00:00 [facility] dical (Prevnar 20) Branch Zoster Vaccine 2022-04-22 Completed [facility] Recombinant 00:00:00 [facility] Pneumococcal 20 2022-04-22 Completed [facility] y of Conjugate, PCV20 00:00:00 [facility] dical (Prevnar 20) Branch Zoster Vaccine 2022-04-22 Completed [facility] Recombinant 00:00:00 [facility] Pneumococcal 20 2022-04-22 Completed [facility] y of Conjugate, PCV20 00:00:00 [facility] dical (Prevnar 20) Branch Zoster Vaccine 2022-04-22 Completed [facility] Recombinant 00:00:00 [facility] Pneumococcal 20 2022-04-22 Completed [facility] y of Conjugate, PCV20 00:00:00 [facility] dical (Prevnar 20) Branch Zoster Vaccine 2022-04-22 Completed [facility] of Recombinant 00:00:00 [facility] Pneumococcal 20 2022-04-22 Completed [facility] y of Conjugate, PCV20 00:00:00 [facility] dical (Prevnar 20) Branch Zoster Vaccine 2022-04-22 Completed [facility] of Recombinant 00:00:00 [facility] Pneumococcal 20 2022-04-22 Completed [facility] y of Conjugate, PCV20 00:00:00 [facility] dical (Prevnar 20) Branch Zoster Vaccine 2022-04-22 Completed [facility] Recombinant 00:00:00 [facility] Pneumococcal 20 2022-04-22 Completed [facility] y of Conjugate, PCV20 00:00:00 [facility] dical (Prevnar 20) Branch Zoster Vaccine 2022-04-22 Completed [facility] Recombinant 00:00:00 [facility] Pneumococcal 20 2022-04-22 Completed [facility] y of Conjugate, PCV20 00:00:00 [place] [facility] (Prevnar 20) Branch Zoster Vaccine 2022-04-22 Completed [facility] of Recombinant 00:00:00 [facility] Pneumococcal 20 2022-04-22 Completed [facility] y of Conjugate, PCV20 00:00:00 [facility] dical (Prevnar 20) Branch Zoster Vaccine 2022-04-22 Completed [facility] of Recombinant 00:00:00 [facility] Pneumococcal 20 2022-04-22 Completed [facility] y of Conjugate, PCV20 00:00:00 [facility] dical (Prevnar 20) Branch Zoster Vaccine 2022-04-22 Completed [facility] of Recombinant 00:00:00 [facility] Pneumococcal 20 2022-04-22 Completed [facility] y of Conjugate, PCV20 00:00:00 [facility] dical (Prevnar 20) Branch Zoster Vaccine 2022-04-22 Completed [facility] of Recombinant 00:00:00 [facility] Pneumococcal 20 2022-04-22 Completed [facility] y of Conjugate, PCV20 00:00:00 [facility] dical (Prevnar 20) Branch Zoster Vaccine 2022-04-22 Completed [facility] of Recombinant 00:00:00 [facility] Pneumococcal 20 2022-04-22 Completed [facility] y of Conjugate, PCV20 00:00:00 [facility] dical (Prevnar 20) Branch Zoster Vaccine 2022-04-22 Completed [facility] of Recombinant 00:00:00 [facility] Pneumococcal 20 2022-04-22 Completed [facility] y of Conjugate, PCV20 00:00:00 [facility] dical (Prevnar 20) Branch Zoster Vaccine 2022-04-22 Completed [facility] of Recombinant 00:00:00 [facility] Pneumococcal 20 2022-04-22 Completed [facility] y of Conjugate, PCV20 00:00:00 [facility] dical (Prevnar 20) Branch Zoster Vaccine 2022-04-22 Completed [facility] Recombinant 00:00:00 [facility] Pneumococcal 20 2022-04-22 Completed [facility] y of Conjugate, PCV20 00:00:00 [facility] dical (Prevnar 20) Branch Zoster Vaccine 2022-04-22 Completed [facility] of Recombinant 00:00:00 [facility] Pneumococcal 20 2022-04-22 Completed [facility] y of Conjugate, PCV20 00:00:00 [facility] dical (Prevnar 20) Branch Zoster Vaccine 2022-04-22 Completed [facility] Recombinant 00:00:00 [facility] Pneumococcal 20 2022-04-22 Completed [facility] y of Conjugate, PCV20 00:00:00 [facility] dical (Prevnar 20) Branch Zoster Vaccine 2022-04-22 Completed [facility] Recombinant 00:00:00 [facility] Influenza Virus 2022-02-02 Completed [facility]it y of Vaccine Quad IM, 00:00:00 [facility] dical Preserv and ABX Branch Free 6 MO-64 YRS Influenza Virus 2022-02-02 Completed Universit y of Vaccine Quad IM, 00:00:00 [facility] dical Preserv and ABX Branch Free 6 MO-64 YRS Influenza Virus 2022-02-02 Completed [facility]it y of Vaccine Quad IM, 00:00:00 [facility] dical Preserv and ABX Branch Free 6 MO-64 YRS Influenza Virus 2022-02-02 Completed [facility]it y of Vaccine Quad IM, 00:00:00 [facility] dical Preserv and ABX Branch Free 6 MO-64 YRS Influenza Virus 2022-02-02 Completed [facility]it y of Vaccine Quad IM, 00:00:00 [facility] dical Preserv and ABX Branch Free 6 MO-64 YRS Influenza Virus 2022-02-02 Completed [facility]it y of Vaccine Quad IM, 00:00:00 [facility] dical Preserv and ABX Branch Free 6 MO-64 YRS Influenza Virus 2022-02-02 Completed [facility]it y of Vaccine Quad IM, 00:00:00 [facility] dical Preserv and ABX Branch Free 6 MO-64 YRS Influenza Virus 2022-02-02 Completed [facility]it y of Vaccine Quad IM, 00:00:00 [facility] dical Preserv and ABX Branch Free 6 MO-64 YRS Influenza Virus 2022-02-02 Completed [facility]it y of Vaccine Quad IM, 00:00:00 [facility] dical Preserv and ABX Branch Free 6 MO-64 YRS Influenza Virus 2022-02-02 Completed [facility]it y of Vaccine Quad IM, 00:00:00 [facility] dical Preserv and ABX Branch Free 6 [...] 2021-04-12 Completed [facility] y of Vaccine 00:00:00 [facility] Influenza Virus 2021-04-12 Completed [facility] y of Vaccine 00:00:00 [facility] Influenza Virus 2021-04-12 Completed [facility] y of Vaccine 00:00:00 [facility] Influenza Virus 2021-04-12 Completed [facility] y of Vaccine 00:00:00 [facility] Influenza Virus 2021-04-12 Completed [facility] y of Vaccine 00:00:00 [facility] Influenza Virus 2021-04-12 Completed [facility] y of Vaccine 00:00:00 [place] [facility] Influenza Virus 2021-04-12 Completed [facility] y of Vaccine 00:00:00 [facility] Influenza Virus 2021-04-12 Completed [facility]it y of Vaccine 00:00:00 [facility] Branch Influenza Virus 2021-04-12 Completed [facility]it y of Vaccine 00:00:00 [facility] Influenza Virus 2021-04-12 Completed [facility] y of Vaccine 00:00:00 [facility] Influenza Virus 2021-04-12 Completed [facility]it y of Vaccine 00:00:00 [facility] Influenza Virus 2021-04-12 Completed [facility] y of Vaccine 00:00:00 [facility] Influenza Virus 2021-04-12 Completed [facility] y of Vaccine 00:00:00 [facility] Influenza Virus 2021-04-12 Completed [facility] y of Vaccine 00:00:00 [facility] Influenza Virus 2021-04-12 Completed [facility]it y of Vaccine 00:00:00 [facility] Influenza Virus 2021-04-12 Completed [facility] y of Vaccine 00:00:00 [facility] Influenza Virus 2021-04-12 Completed [facility] y of Vaccine 00:00:00 [facility] Influenza Virus 2021-04-12 Completed [facility] y of Vaccine 00:00:00 [facility] Influenza Virus 2021-04-12 Completed [facility] y of Vaccine 00:00:00 [facility] Influenza Virus 2021-04-12 Completed [facility] y of Vaccine 00:00:00 [place] [facility] Branch Influenza Virus 2021-04-12 Completed [facility] y of Vaccine 00:00:00 [facility] Influenza Virus 2021-04-12 Completed [facility] y of Vaccine 00:00:00 [facility] Branch Influenza Virus 2021-04-12 Completed [facility] y of Vaccine 00:00:00 [place] [facility] Branch Influenza Virus 2021-04-12 Completed [facility] y of Vaccine 00:00:00 [facility] Influenza Virus 2021-04-12 Completed [facility] y of Vaccine 00:00:00 [facility] Branch Influenza Virus 2021-04-12 Completed [facility] y of Vaccine 00:00:00 [facility] Branch Influenza Virus 2021-04-12 Completed [facility] y of Vaccine 00:00:00 [facility] Influenza Virus 2021-04-12 Completed [facility] y of Vaccine 00:00:00 [facility] Influenza Virus 2021-04-12 Completed [facility] y of Vaccine 00:00:00 [facility] Influenza Virus 2021-04-12 Completed [facility] y of Vaccine 00:00:00 [facility] Influenza Virus 2021-04-12 Completed [facility] y of Vaccine 00:00:00 [facility] Influenza Virus 2021-04-12 Completed [facility] y of Vaccine 00:00:00 [facility] Influenza Virus 2021-04-12 Completed [facility] y of Vaccine 00:00:00 [facility] Influenza Virus 2021-04-12 Completed [facility] y of Vaccine 00:00:00 [facility] Influenza Virus 2021-04-12 Completed [facility] y of Vaccine 00:00:00 [facility] Influenza Virus 2021-04-12 Completed [facility] y of Vaccine 00:00:00 [facility] Influenza Virus 2021-04-12 Completed [facility]it y of Vaccine 00:00:00 [facility] Branch Influenza Virus 2021-04-12 Completed [facility] y of Vaccine 00:00:00 [facility] Influenza Virus 2021-04-12 Completed [facility] y of Vaccine 00:00:00 [facility] Influenza Virus 2021-04-12 Completed [facility] y of Vaccine 00:00:00 [facility] Branch Influenza Virus 2021-04-12 Completed [facility] y of Vaccine 00:00:00 [facility] Influenza Virus 2021-04-12 Completed [facility] y of Vaccine 00:00:00 [facility] Branch Influenza Virus 2021-04-12 Completed [facility] y of Vaccine 00:00:00 [place] [facility] Influenza Virus 2021-04-12 Completed [facility] y of Vaccine 00:00:00 [facility] Branch Influenza Virus 2021-04-12 Completed [facility] y of Vaccine 00:00:00 [facility] Branch Influenza Virus 2021-04-12 Completed [facility] y of Vaccine 00:00:00 [place] [facility] Branch Influenza Virus 2021-04-12 Completed [facility] y of Vaccine 00:00:00 [facility] Influenza Virus 2021-04-12 Completed [facility]it y of Vaccine 00:00:00 [facility] Influenza Virus 2021-04-12 Completed [facility] y of Vaccine 00:00:00 [facility] Influenza Virus 2021-04-12 Completed [facility] y of Vaccine 00:00:00 [facility] Influenza Virus 2021-04-12 Completed [facility] y of Vaccine 00:00:00 [facility] Influenza Virus 2021-04-12 Completed [facility] y of Vaccine 00:00:00 [facility] Influenza Virus 2021-04-12 Completed [facility] y of Vaccine 00:00:00 [facility] Influenza Virus 2021-04-12 Completed [facility] y of Vaccine 00:00:00 [facility] Influenza Virus 2021-04-12 Completed [facility] y of Vaccine 00:00:00 [facility] Influenza Virus 2021-04-12 Completed [facility] y of Vaccine 00:00:00 [facility] Influenza Virus 2021-04-12 Completed [facility] y of Vaccine 00:00:00 [facility] Influenza Virus 2021-04-12 Completed [facility] y of Vaccine 00:00:00 [facility] Influenza Virus 2021-04-12 Completed [facility] y of Vaccine 00:00:00 [facility] Influenza Virus 2021-04-12 Completed [facility] y of Vaccine 00:00:00 [facility] Influenza Virus 2021-04-12 Completed [facility] y of Vaccine 00:00:00 [facility] Influenza Virus 2021-04-12 Completed [facility] y of Vaccine 00:00:00 [facility] Influenza Virus 2021-04-12 Completed [facility] y of Vaccine 00:00:00 [facility] Influenza Virus 2021-04-12 Completed [facility] y of Vaccine 00:00:00 [facility] Influenza Virus 2021-04-12 Completed [facility] y of Vaccine 00:00:00 [facility] Influenza Virus 2021-04-12 Completed [facility] y of Vaccine 00:00:00 [facility] Influenza Virus 2021-04-12 Completed [facility] y of Vaccine 00:00:00 [facility] Influenza Virus 2021-04-12 Completed [facility] y of Vaccine 00:00:00 [facility] Influenza Virus 2021-04-12 Completed [facility] y of Vaccine 00:00:00 [facility] Influenza Virus 2021-04-12 Completed [facility] y of Vaccine 00:00:00 [facility] Influenza Virus 2021-04-12 Completed [facility] y of Vaccine 00:00:00 [facility] Influenza Virus 2021-04-12 Completed [facility] y of Vaccine 00:00:00 [facility] Influenza Virus 2021-04-12 Completed [facility]it y of Vaccine 00:00:00 [facility] Influenza Virus 2021-04-12 Completed [facility] y of Vaccine 00:00:00 [facility] Influenza Virus 2021-04-12 Completed [facility] y of Vaccine 00:00:00 [facility] Influenza Virus 2021-04-12 Completed [facility] y of Vaccine 00:00:00 [facility] Influenza Virus 2021-04-12 Completed [facility] y of Vaccine 00:00:00 [facility] Influenza Virus 2021-04-12 Completed [facility] y of Vaccine 00:00:00 [facility] Influenza Virus 2021-04-12 Completed [facility] y of Vaccine 00:00:00 [facility] Influenza Virus 2021-04-12 Completed [facility] y of Vaccine 00:00:00 [facility] Influenza Virus 2021-04-12 Completed [facility] y of Vaccine 00:00:00 [facility] Influenza Virus 2021-04-12 Completed [facility] y of Vaccine 00:00:00 [facility] Influenza Virus 2021-04-12 Completed [facility] y of Vaccine 00:00:00 [facility] Influenza Virus 2021-04-12 Completed [facility] y of Vaccine 00:00:00 [facility] Influenza Virus 2021-04-12 Completed [facility] y of Vaccine 00:00:00 [facility] Influenza Virus 2021-04-12 Completed [facility] y of Vaccine 00:00:00 [facility] Influenza Virus 2019-04-22 Completed [facility]it y of Vaccine Quad .5 mL 00:00:00 [facility] IM 6+ MO Branch Influenza Virus 2019-04-22 Completed [facility] y of Vaccine Quad .5 mL 00:00:00 [place] [facility] 6+ MO Branch Influenza Virus 2019-04-22 Completed [facility] y of Vaccine Quad .5 mL 00:00:00 [facility] IM 6+ MO Branch Influenza Virus 2019-04-22 Completed [facility]it y of Vaccine Quad .5 mL 00:00:00 [facility] IM 6+ MO Branch Influenza Virus [...] y of Vaccine Quad .5 mL 00:00:00 [place] [facility] 6+ MO Branch TDAP 2013-06-09 Completed University of 00:00:00 [facility] TDAP 2013-06-09 Completed University of 00:00:00 [facility] TDAP 2013-06-09 Completed [facility] of 00:00:00 [facility] TDAP 2013-06-09 Completed University of 00:00:00 [facility] TDAP 2013-06-09 Completed University of 00:00:00 [facility] TDAP 2013-06-09 Completed University of 00:00:00 [facility] TDAP 2013-06-09 Completed [facility] of 00:00:00 [facility] TDAP 2013-06-09 Completed University of 00:00:00 [facility] Branch TDAP 2013-06-09 Completed [facility] of 00:00:00 [place] [facility] TDAP 2013-06-09 Completed [facility] of 00:00:00 [facility] [place] [facility] TDAP 2013-06-09 Completed [facility] of 00:00:00 [facility] Branch TDAP 2013-06-09 Completed [facility] of 00:00:00 [facility] Branch TDAP 2013-06-09 Completed [facility] of 00:00:00 [facility] [place] [facility] TDAP 2013-06-09 Completed [facility] of 00:00:00 [facility] [place] [facility] TDAP 2013-06-09 Completed [facility] of 00:00:00 [facility] Branch TDAP 2013-06-09 Completed [facility] of 00:00:00 [facility] TDAP 2013-06-09 Completed [facility] of 00:00:00 [facility] TDAP 2013-06-09 Completed [facility] of 00:00:00 [facility] TDAP 2013-06-09 Completed [facility] of 00:00:00 [facility] TDAP 2013-06-09 Completed [facility] of 00:00:00 [facility] TDAP 2013-06-09 Completed [facility] of 00:00:00 [facility] TDAP 2013-06-09 Completed [facility] of 00:00:00 [facility] TDAP 2013-06-09 Completed [facility] of 00:00:00 [facility] TDAP 2013-06-09 Completed [facility] of 00:00:00 [facility] TDAP 2013-06-09 Completed [facility] of 00:00:00 [facility] TDAP 2013-06-09 Completed University of 00:00:00 [facility] TDAP 2013-06-09 Completed [facility] of 00:00:00 [facility] TDAP 2013-06-09 Completed [facility] of 00:00:00 [facility] TDAP 2013-06-09 Completed [facility] of 00:00:00 [facility] TDAP 2013-06-09 Completed [facility] of 00:00:00 [facility] TDAP 2013-06-09 Completed [facility] of 00:00:00 [facility] TDAP 2013-06-09 Completed [facility] of 00:00:00 [facility] TDAP 2013-06-09 Completed [facility] of 00:00:00 [facility] TDAP 2013-06-09 Completed [facility] of 00:00:00 [facility] TDAP 2013-06-09 Completed [facility] 00:00:00 [facility] TDAP 2013-06-09 Completed [facility] of 00:00:00 [place] [facility] TDAP 2013-06-09 Completed [facility] of 00:00:00 [place] [facility] [place] [facility] TDAP 2013-06-09 Completed [facility] of 00:00:00 [place] [facility] TDAP 2013-06-09 Completed [facility] of 00:00:00 [place] [facility] TDAP 2013-06-09 Completed [facility] of 00:00:00 [place] [facility] TDAP 2013-06-09 Completed [facility] of 00:00:00 [place] [facility] TDAP 2013-06-09 Completed [facility] of 00:00:00 [place] [facility] [place] [facility] TDAP 2013-06-09 Completed [facility] of 00:00:00 [place] [facility] TDAP 2013-06-09 Completed [facility] of 00:00:00 [place] [facility] TDAP 2013-06-09 Completed [facility] of 00:00:00 [place] [facility] TDAP 2013-06-09 Completed [facility] of 00:00:00 [facility] TDAP 2013-06-09 Completed [facility] of 00:00:00 [facility] TDAP 2013-06-09 Completed [facility] of 00:00:00 [facility] TDAP 2013-06-09 Completed [facility] of 00:00:00 [facility] TDAP 2013-06-09 Completed [facility] of 00:00:00 [facility] [place] [facility] TDAP 2013-06-09 Completed [facility] of 00:00:00 [facility] [place] [facility] TDAP 2013-06-09 Completed [facility] of 00:00:00 [facility] TDAP 2013-06-09 Completed [facility] of 00:00:00 [facility] TDAP 2013-06-09 Completed [facility] of 00:00:00 [facility] [place] [facility] TDAP 2013-06-09 Completed [facility] of 00:00:00 [facility] [place] [facility] TDAP 2013-06-09 Completed [facility] of 00:00:00 [place] [facility] [place] [facility] TDAP 2013-06-09 Completed [facility] of 00:00:00 [place] [facility] [place] [facility] TDAP 2013-06-09 Completed [facility] of 00:00:00 [place] [facility] [place] [facility] TDAP 2013-06-09 Completed [facility] of 00:00:00 [facility] [place] [facility] TDAP 2013-06-09 Completed [facility] of 00:00:00 [facility] [place] [facility] TDAP 2013-06-09 Completed [facility] 00:00:00 [facility] [place] [facility] TDAP 2013-06-09 Completed [facility] of 00:00:00 [facility] [place] [facility] TDAP 2013-06-09 Completed [facility] of 00:00:00 [facility] [place] [facility] TDAP 2013-06-09 Completed [facility] of 00:00:00 [facility] TDAP 2013-06-09 Completed [facility] of 00:00:00 [facility] [place] [facility] TDAP 2013-06-09 Completed [facility] of 00:00:00 [facility] [place] [facility] TDAP 2013-06-09 Completed [facility] of 00:00:00 [facility] TDAP 2013-06-09 Completed [facility] of 00:00:00 [facility] TDAP 2013-06-09 Completed [facility] 00:00:00 [facility] TDAP 2013-06-09 Completed [facility] 00:00:00 [facility] TDAP 2013-06-09 Completed [facility] 00:00:00 [facility] TDAP 2013-06-09 Completed [facility] 00:00:00 [facility] TDAP 2013-06-09 Completed [facility] of 00:00:00 [facility] TDAP 2013-06-09 Completed [facility] of 00:00:00 [facility] TDAP 2013-06-09 Completed [facility] of 00:00:00 [facility] TDAP 2013-06-09 Completed [facility] of 00:00:00 [facility] TDAP 2013-06-09 Completed [facility] of 00:00:00 [facility] TDAP 2013-06-09 Completed [facility] of 00:00:00 [facility] TDAP 2013-06-09 Completed [facility] of 00:00:00 [facility] TDAP 2013-06-09 Completed [facility] of 00:00:00 [facility] TDAP 2013-06-09 Completed [facility] of 00:00:00 [facility] TDAP 2013-06-09 Completed [facility] of 00:00:00 [facility] TDAP 2013-06-09 Completed [facility] of 00:00:00 [facility] TDAP 2013-06-09 Completed [facility] of 00:00:00 [facility] TDAP 2013-06-09 Completed [facility] of 00:00:00 [facility] TDAP 2013-06-09 Completed [facility] of 00:00:00 [facility] Vital Signs Vital Name Observation Time Observation Value Comments Source Systolic blood 2022-11-28 16:44:00 119 mm[Hg] Univer sity of pressure [facility] Diastolic blood 2022-11-28 16:44:00 67 mm[Hg] Unive rsity of pressure [facility] Heart rate 2022-11-28 16:44:00 72 /min [facility]i ty of [facility] Body height 2022-11-28 16:44:00 167.6 cm [facility]i ty [facility] Body weight 2022-11-28 16:44:00 104.327 kg [facility]i [facility] BMI 2022-11-28 16:44:00 37.12 kg/m2 [facility] Oxygen saturation in 2022-11-28 16:44:00 94 /min University of Arterial blood by [facility] Pulse oximetry Branch HEIGHT 2022-11-21 14:10:00 167.6 cm WEIGHT 2022-11-21 14:10:00 106.142 kg HEIGHT 2022-11-21 14:10:00 167.6 cm WEIGHT 2022-11-21 14:10:00 106.142 kg HEIGHT 2022-11-21 14:10:00 167.6 cm WEIGHT 2022-11-21 14:10:00 106.142 kg Systolic blood 2022-10-28 22:10:00 158 mm[Hg] Univer sity of pressure [facility] Diastolic blood 2022-10-28 22:10:00 90 mm[Hg] Unive rsity of pressure [facility] Heart rate 2022-10-28 22:10:00 105 /min [facility]i ty [facility] Oxygen saturation in 2022-10-28 22:10:00 96 /min University of Arterial blood by [facility] Pulse oximetry Branch Respiratory rate 2022-10-28 21:05:00 30 /min Univ ersity of [facility] Body temperature 2022-10-28 15:29:00 36.72 Araseli Univ ersity of [facility] Body weight 2022-10-28 15:29:00 111.585 kg [facility]i ty of [facility] BMI 2022-10-28 15:29:00 39.71 kg/m2 [facility] Systolic blood 2022-04-03 19:51:00 134 mm[Hg] Univer sity of pressure [facility] Diastolic blood 2022-04-03 19:51:00 86 mm[Hg] Unive rsity of pressure [facility] Heart rate 2022-04-03 19:51:00 83 /min Universi ty of [facility] Oxygen saturation in 2022-04-03 19:51:00 97 /min University of Arterial blood by [facility] Pulse oximetry Branch Body temperature 2022-04-03 19:48:00 36.72 Araseli Univ ersity of [facility] Respiratory rate 2022-04-03 19:48:00 17 /min Univ ersity of [facility] Body weight 2022-04-03 19:48:00 111.63 kg Universi ty of [facility] BMI 2022-04-03 19:48:00 39.72 kg/m2 Universi ty [facility] Systolic blood 2022-02-02 20:20:00 138 mm[Hg] Univer sity of [facility] Diastolic blood 2022-02-02 20:20:00 90 mm[Hg] Unive rsity of [facility] Heart rate 2022-02-02 20:19:00 78 /min Universi ty of [facility] Body height 2022-02-02 20:19:00 167.6 cm Universi ty [facility] Body weight 2022-02-02 20:19:00 104.736 kg Universi ty [facility] BMI 2022-02-02 20:19:00 37.27 kg/m2 Universi ty [facility] Oxygen saturation in 2022-02-02 20:19:00 99 /min University of Arterial blood by [facility] Pulse oximetry Branch Systolic blood 2022-11-25 07:05:00 126 mm[Hg] [facility] Diastolic blood 2022-11-25 07:05:00 69 mm[Hg] [facility] Heart rate 2022-11-25 07:05:00 54 /min [facility] Body temperature 2022-11-25 07:05:00 36.28 Araseli [facility] Respiratory rate 2022-11-25 07:05:00 17 /min [facility] Oxygen saturation in 2022-11-25 07:05:00 98 /min [facility] Arterial blood by Medical nter Pulse oximetry Body height 2022-11-21 14:10:00 167.6 cm [facility] Body weight 2022-11-21 14:10:00 106.142 kg [facility] BMI 2022-11-21 14:10:00 37.77 kg/m2 [facility] Procedures Procedure Date / Time Performing Clinician Source Performed EXTERNAL PROVIDER RECORDS 2022-12-10 05:01:00 Doctor Unassigned, [facility] POCT-GLUCOSE METER 2022-11-25 08:14:00 [facility] CBC W/PLT COUNT & AUTO 2022-11-25 05:47:00 Robert Power [facility] BASIC METABOLIC PANEL 2022-11-25 05:47:[address] [facility] PHOSPHORUS 2022-11-25 05:47:00 Robert Power [facility] MAGNESIUM 2022-11-25 05:47:00 Tono [facility] CBC W/PLT COUNT & AUTO 2022-11-25 05:47:00 Robert Power [facility] ECG 12-LEAD 2022-11-24 22:54:38 Unknown, Hl7 [facility] ECG 12-LEAD 2022-11-24 22:54:38 Posthenok [facility] ECG 12-LEAD 2022-11-24 22:54:38 Unknown, Hl7 [facility] POCT-GLUCOSE METER 2022-11-24 22:12:00 [facility] BASIC METABOLIC PANEL 2022-11-24 18:58:[address] [facility] HIGH SENSITIVITY TROPONIN 2022-11-24 18:58:00 Dino Tate I [facility] CBC W/PLT COUNT & AUTO 2022-11-24 18:58:00 Bebeto [facility] MAGNESIUM 2022-11-24 18:58:00 Bebeto [facility] PHOSPHORUS 2022-11-24 18:58:00 Bebeto [facility] CBC W/PLT COUNT & AUTO 2022-11-24 18:58:00 Bebeto [facility] CT BRAIN WITHOUT IV 2022-11-24 18:45:00 Dino Tate [facility] POCT-GLUCOSE METER 2022-11-24 17:05:00 [facility] POCT-GLUCOSE METER 2022-11-24 12:37:00 [facility] POCT-GLUCOSE METER 2022-11-24 08:23:00 [facility] CBC W/PLT COUNT & AUTO 2022-11-24 04:18:00 Tono Robert [facility] BASIC METABOLIC PANEL 2022-11-24 04:18:[address] [facility] PHOSPHORUS 2022-11-24 04:18:00 Tono Robert [facility] MAGNESIUM 2022-11-24 04:18:00 Robert Power [facility] CBC W/PLT COUNT & AUTO 2022-11-24 04:18:00 Robert Power [facility] POCT-GLUCOSE METER 2022-11-23 21:50:00 [facility] EEG AWAKE AND DROWSY 2022-11-23 19:00:[address] [facility] POCT-GLUCOSE METER 2022-11-23 17:59:00 [facility] CAROTID DOPPLER BILATERAL 2022-11-23 14:00:00 Kevin Pang [facility] POCT-GLUCOSE METER 2022-11-23 12:59:00 [facility] POCT-GLUCOSE METER 2022-11-23 08:11:00 [facility] CBC W/PLT COUNT & AUTO 2022-11-23 04:08:00 Robert Power [facility] PHOSPHORUS 2022-11-23 04:08:00 Tono Robert [facility] MAGNESIUM 2022-11-23 04:08:00 Robert Power [facility] CBC W/PLT COUNT & AUTO 2022-11-23 04:08:00 Robert Power [facility] POCT-GLUCOSE METER 2022-11-22 20:57:00 [facility]SE [facility] 2022-11-22 17:34:00 Ankita [facility] POCT-GLUCOSE METER 2022-11-22 11:21:00 Ankita [facility] CT BRAIN WITHOUT IV 2022-11-22 09:30:00 Paxton Tovar [facility] POCT-GLUCOSE METER 2022-11-22 08:02:00 [place] CBC W/PLT COUNT & AUTO 2022-11-22 03:05:00 Robert Power [facility] BASIC METABOLIC PANEL 2022-11-22 03:05:[address] [facility] PHOSPHORUS 2022-11-22 03:05:00 Robert Power [facility] MAGNESIUM 2022-11-22 03:05:00 Robert Power [facility] CBC W/PLT COUNT & AUTO 2022-11-22 03:05:00 Robert Power [facility] CT BRAIN WITHOUT IV 2022-11-21 22:44:31 Marilee Betancourt [facility] EEG AWAKE AND DROWSY 2022-11-21 20:01:05 Kevin Pang [facility] W/[facility]T COUNT & AUTO 2022-11-21 16:54:00 Robert Power [facility] HIGH SENSITIVITY TROPONIN 2022-11-21 16:54:00 Henry Power [facility] HEMOGLOBIN A1C 2022-11-21 16:54:00 Tono Robert [facility] TSH/FREE T4 IF INDICATED 2022-11-21 16:54:00 Damon Power trever [facility] VITAMIN B12 2022-11-21 16:54:00 Robert Power [facility] METHYLMALONIC ACID 2022-11-21 16:54:00 Tono Robert [facility] HC LAB HIV-1 AG W/HIV-1&2 2022-11-21 16:54:00 Henry Power [facility] AB [facility] RPR 2022-11-21 16:54:00 Tono Robert [facility] CBC W/PLT COUNT & AUTO 2022-11-21 16:54:00 Robert Power [facility] RI INSERT 2022-11-21 16:28:15 Kevin Pang [facility] CATH,ART[facility]PERCUT[facility] 12[facility]AD 2022-11-21 16:05:42 Unknown, 7 [facility] ECG 12-LEAD 2022-11-21 16:05:42 Unknown, 7 [facility] ECG 12-LEAD 2022-11-21 16:04:59 Unknown, 7 [facility] ECG 12-LEAD 2022-11-21 16:04:59 LongDino [facility] ECG 12-LEAD 2022-11-21 16:04:59 Unknown, 7 [facility] CREATINE KINASE (CK) 2022-11-21 15:19:00 Robert Power CH, I [facility] COMPREHENSIVE METABOLIC 2022-11-21 15:19:00 Robert Power [facility] PHOSPHORUS 2022-11-21 15:19:00 Robert Power [facility] MAGNESIUM 2022-11-21 15:19:00 Tono Robert [facility] PROTHROMBIN TIME/INR 2022-11-21 15:19:00 TonoRobert CH, I [facility] APTT 2022-11-21 15:19:00 Toon Robert GALVIN [facility] LIPID PANEL 2022-11-21 15:19:00 Tono Robert [facility] C-REACTIVE PROTEIN 2022-11-21 15:19:00 Tono Robert [facility] POCT-GLUCOSE METER 2022-11-21 14:42:00 Donta Markolayinka [facility] EKG-SCANNED 2022-11-21 00:00:00 ProviderAllie [facility] US TESTICULAR TORSION 2022-10-28 18:10:00 Candida Paul [facility] BASIC METABOLIC PANEL 2022-10-28 15:47:00 Candida Paul [facility] (NA, K, CL, CO2, GLUCOSE, Medica l Branch BUN, CREATININE, CA) CBC WITH DIFF 2022-10-28 15:47:00 Candida Paul [facility] URINALYSIS 2022-10-28 15:47:00 Candida Paul [facility] CONSENT/REFUSAL FOR 2022-10-28 15:25:48 Doctor Chadwick, [facility] DIAGNOSIS AND TREATMENT [facility] [facility] EXTERNAL PROVIDER - ADC 2022-05-03 06:01:00 Doctor Chadwick [facility] CARDIOLOGY [facility] AUTHORIZATION TO RELEASE 2022-04-03 06:01:00 Doctor Genao, [facility] PHI TO [facility] US ABDOMEN COMPLETE 2022-02-13 18:24:56 Blessing Yanes [facility] FLU VACC (), 6 2022-02-02 20:37:25 Blessing Yanes [facility] MO-64 YRS, .5ML, IM, QUAD Medica l Branch (FLUCELVAX) MEDICATION CORRESPONDENCE 2022-01-19 05:01:00 Doctor Unassigned, [facility] [facility] DME/SUPPLY JUSTIFICATION 2021-12-25 05:01:00 Doctor Unassigned, [facility] CT Spine lumbar myelogram 2017-05-30 00:00:00 [facility] [id number] Plan of Care Planned Activity Planned Date Details Comments Source Future Scheduled 2025-11-21 Lipid panel (procedure) [facility] 00:00:00 [code = 65247560] Medical Ce nter Future Scheduled 2025-11-21 Lipid panel (procedure) [facility] 00:00:00 [code = 58523170] Medical Ce nter Future Scheduled 2023-06-09 DTAP/TDAP/TD VACCINES ([address] [facility] 00:00:00 - Td or Tdap) [code = Medica l Center DTAP/TDAP/TD VACCINES (2 - Td or Tdap)] Future Scheduled 2023-06-09 DTAP/TDAP/TD VACCINES ([address] [facility] 00:00:00 - Td or Tdap) [code = Medica l Center DTAP/TDAP/TD VACCINES (2 - Td or Tdap)] Future Scheduled 2023-01-11 Influenza Vaccine (#1) [facility] [code = Influenza Vaccine Me dical Center (#1)] Future Scheduled 2023-01-11 Influenza Vaccine (#1) [facility] 00:00:00 [code = Influenza Vaccine Me dical Center (#1)] Future Scheduled 2022-12-20 Screening for malignant [facility] 21:45:19 neoplasm of colon Hospital (procedure) [code = 903808899] Future Scheduled 2022-12-20 [facility]ening for [facility] 21:45:19 neoplasm of colon Hospital (procedure) [code = 072891924] Future Scheduled 2022-12-20 Screening for malignant [facility] 21:45:19 neoplasm of colon Hospital (procedure) [code = 201416138] Future Scheduled 2022-12-20 COVID-19 VACCINE (#1) [facility] 21:45:19 [code = COVID-19 VACCINE Hos pital (#1)] Future Scheduled 2022-12-20 Screening for malignant [facility] 21:45:19 neoplasm of colon Hospital (procedure) [code = 070204689] Future Scheduled 2022-12-20 Screening for malignant [facility] 21:45:19 neoplasm of colon Hospital (procedure) [code = 772589285] Future Scheduled 2022-12-20 SHINGLES VACCINES (1 of [facility] 21:45:19 2) [code = SHINGLES Hospital VACCINES (1 of 2)] Future Scheduled 2022-12-20 INFLUENZA VACCINE [code = [facility] 21:45:19 INFLUENZA VACCINE] Hospital Future Scheduled 2022-11-28 Screening for malignant [facility] 11:18:16 neoplasm of colon Hospital (procedure) [code = 063036232] Future Scheduled 2022-11-28 Screening for malignant [facility] 11:18:16 neoplasm of colon Hospital (procedure) [code = 330719862] Future Scheduled 2022-11-28 Screening for malignant [facility] 11:18:16 neoplasm of colon Hospital (procedure) [code = 718832304] Future Scheduled 2022-11-28 COVID-19 VACCINE (#1) [facility] 11:18:16 [code = COVID-19 VACCINE Hos pital (#1)] Future Scheduled 2022-11-28 Screening for malignant [facility] 11:18:16 neoplasm of colon Hospital (procedure) [code = 722021368] Future Scheduled 2022-11-28 Screening for malignant [facility] 11:18:16 neoplasm of colon Hospital (procedure) [code = 120591455] Future Scheduled 2022-11-28 SHINGLES VACCINES (1 of [facility] 11:18:16 2) [code = SHINGLES Hospital VACCINES (1 of 2)] Future Scheduled 2022-11-28 INFLUENZA VACCINE [code = [facility] 11:18:16 INFLUENZA VACCINE] Hospital Future Scheduled 2022-11-21 Screening for malignant [facility] 10:58:39 neoplasm of colon Hospital (procedure) [code = 902684393] Future Scheduled 2022-11-21 Screening for malignant [facility] 10:58:39 neoplasm of colon Hospital (procedure) [code = 475097873] Future Scheduled 2022-11-21 Screening for malignant [facility] 10:58:39 neoplasm of colon Hospital (procedure) [code = 186553070] Future Scheduled 2022-11-21 COVID-19 VACCINE (#1) [facility] 10:58:39 [code = COVID-19 VACCINE Hos pital (#1)] Future Scheduled 2022-11-21 Screening for malignant [facility] 10:58:39 neoplasm of colon Hospital (procedure) [code = 238432639] Future Scheduled 2022-11-21 Screening for malignant [facility] 10:58:39 neoplasm of colon Hospital (procedure) [code = 028591472] Future Scheduled 2022-11-21 SHINGLES VACCINES (1 of [facility] 10:58:39 2) [code = SHINGLES Hospital VACCINES (1 of 2)] Future Scheduled 2022-11-21 INFLUENZA VACCINE [code = [facility] 10:58:39 INFLUENZA VACCINE] Hospital Future Scheduled 2022-10-25 Screening for malignant [facility] 12:18:53 neoplasm of colon Hospital (procedure) [code = 325727077] Future Scheduled 2022-10-25 Screening for malignant [facility] 12:18:53 neoplasm of colon Hospital (procedure) [code = 315352883] Future Scheduled 2022-10-25 Screening for malignant [facility] 12:18:53 neoplasm of colon Hospital (procedure) [code = 458883623] Future Scheduled 2022-10-25 COVID-19 VACCINE (#1) [facility] 12:18:53 [code = COVID-19 VACCINE Hos pital (#1)] Future Scheduled 2022-10-25 Screening for malignant [facility] 12:18:53 neoplasm of colon Hospital (procedure) [code = 545528084] Future Scheduled 2022-10-25 Screening for malignant [facility] 12:18:53 neoplasm of colon Hospital (procedure) [code = 324097633] Future Scheduled 2022-10-25 SHINGLES VACCINES (1 of [facility] 12:18:53 2) [code = SHINGLES Hospital VACCINES (1 of 2)] Future Scheduled 2022-10-25 INFLUENZA VACCINE [code = [facility] 12:18:53 INFLUENZA VACCINE] Hospital Future Scheduled 2022-09-10 Medicare IPPE (WELCOME TO [facility] 00:00:00 MEDICARE) [code = Medical Ce nter Medicare IPPE (WELCOME TO MEDICARE)] Future Scheduled 2022-09-10 Medicare IPPE (WELCOME TO [facility] 00:00:00 MEDICARE) [code = Medical Ce nter Medicare IPPE (WELCOME TO MEDICARE)] Future Scheduled 2022-08-15 COVID-19 VACCINE (#1) [facility] 23:12:16 [code = COVID-19 VACCINE Hos pital (#1)] Future Scheduled 2022-08-15 [facility]COPY SCREENING [facility] 23:12:16 [code = COLONOSCOPY Hospital SCREENING] Future Scheduled 2022-08-15 SHINGLES VACCINES (1 of [facility] 23:12:16 2) [code = SHINGLES Hospital VACCINES (1 of 2)] Future Scheduled 2022-08-15 INFLUENZA VACCINE [code = [facility] 23:12:16 INFLUENZA VACCINE] Hospital Future Scheduled 2022-05-[address] [facility] 00:00:00 (12+) [code = DEPRESSION Med ical Center SCREENING (12+)] Future Scheduled 2022-05-[address] [facility] 00:00:00 (12+) [code = DEPRESSION Med ical Center SCREENING (12+)] Future Scheduled 2022-04-25 COVID-19 VACCINE (#1) [facility] 20:19:34 [code = COVID-19 VACCINE Hos pital (#1)] Future Scheduled 2022-04-25 [facility]OSCOPY [facility]CREENING [facility] 20:19:34 [code = COLONOSCOPY Hospital SCREENING] Future Scheduled 2022-04-25 SHINGLES VACCINES (1 of [facility] 20:19:34 2) [code = SHINGLES Hospital VACCINES (1 of 2)] Future Scheduled 2022-04-25 INFLUENZA VACCINE [code = [facility] 20:19:34 INFLUENZA VACCINE] Hospital Future Scheduled 2022-04-25 COVID-19 VACCINE (#1) [facility] 20:19:34 [code = COVID-19 VACCINE Hos pital (#1)] Future Scheduled 2022-04-25 COLONOSCOPY SCREENING [facility] 20:19:34 [code = COLONOSCOPY Hospital SCREENING] Future Scheduled 2022-04-25 SHINGLES VACCINES (1 of [facility] 20:19:34 2) [code = SHINGLES Hospital VACCINES (1 of 2)] Future Scheduled 2022-04-25 INFLUENZA VACCINE [code = [facility] 20:19:34 INFLUENZA VACCINE] Hospital Future Scheduled 2022-04-25 COVID-19 VACCINE (#1) [facility] 20:19:34 [code = COVID-19 VACCINE Hos pital (#1)] Future Scheduled 2022-04-25 COLONOSCOPY SCREENING [facility] 20:19:34 [code = COLONOSCOPY Hospital SCREENING] Future Scheduled 2022-04-25 SHINGLES VACCINES (1 of [facility] 20:19:34 2) [code = SHINGLES Hospital VACCINES (1 of 2)] Future Scheduled 2022-04-25 INFLUENZA VACCINE [code = [facility] 20:19:34 INFLUENZA VACCINE] Hospital Future Scheduled 2022-04-25 COVID-19 VACCINE (#1) [facility] 20:19:34 [code = COVID-19 VACCINE Hos pital (#1)] Future Scheduled 2022-04-25 COLONOSCOPY SCREENING [facility] 20:19:34 [code = COLONOSCOPY Hospital SCREENING] Future Scheduled 2022-04-25 SHINGLES VACCINES (1 of [facility] 20:19:34 2) [code = SHINGLES Hospital VACCINES (1 of 2)] Future Scheduled 2022-04-25 INFLUENZA VACCINE [code = [facility] 20:19:34 INFLUENZA VACCINE] Hospital Future Scheduled 2022-03-14 HEPATITIS B VACCINES (1 [facility] 23:23:26 of 3 - 3-dose series) Hospit al [code = HEPATITIS B VACCINES (1 of 3 - 3-dose series)] Future Scheduled 2022-03-14 COVID-19 VACCINE (#1) [facility] 23:23:26 [code = COVID-19 VACCINE Hos pital (#1)] Future Scheduled 2022-03-14 COLONOSCOPY SCREENING [facility] 23:23:26 [code = COLONOSCOPY Hospital SCREENING] Future Scheduled 2022-03-14 SHINGLES VACCINES (1 of [facility] 23:23:26 2) [code = SHINGLES Hospital VACCINES (1 of 2)] Future Scheduled 2022-03-14 INFLUENZA VACCINE [code = [facility] 23:23:26 INFLUENZA VACCINE] Hospital Future Scheduled 2022-03-14 HEPATITIS B VACCINES (1 [facility] 23:23:26 of 3 - 3-dose series) Hospit al [code = HEPATITIS B VACCINES (1 of 3 - 3-dose series)] Future Scheduled 2022-03-14 COVID-19 VACCINE (#1) [facility] 23:23:26 [code = COVID-19 VACCINE Hos pital (#1)] Future Scheduled 2022-03-14 COLONOSCOPY SCREENING [facility] 23:23:26 [code = COLONOSCOPY Hospital SCREENING] Future Scheduled 2022-03-14 SHINGLES VACCINES (1 of [facility] 23:23:26 2) [code = SHINGLES Hospital VACCINES (1 of 2)] Future Scheduled 2022-03-14 INFLUENZA VACCINE [code = [facility] 23:23:26 INFLUENZA VACCINE] Hospital Future Scheduled 2022-01-03 INFLUENZA VACCINE [code = [facility] 17:56:50 INFLUENZA VACCINE] Hospital Future Scheduled 2022-01-03 HEPATITIS B VACCINES (1 [facility] 17:56:50 of 3 - 3-dose series) Hospit al [code = HEPATITIS B VACCINES (1 of 3 - 3-dose series)] Future Scheduled 2022-01-03 COVID-19 VACCINE (#1) [facility] 17:56:50 [code = COVID-19 VACCINE Hos pital (#1)] Future Scheduled 2022-01-03 COLONOSCOPY SCREENING [facility] 17:56:50 [code = COLONOSCOPY Hospital SCREENING] Future Scheduled 2022-01-03 SHINGLES VACCINES (1 of [facility] 17:56:50 2) [code = SHINGLES Hospital VACCINES (1 of 2)] Future Scheduled 2022-01-03 INFLUENZA VACCINE [code = [facility] 17:56:50 INFLUENZA VACCINE] Hospital Future Scheduled 2022-01-03 HEPATITIS B VACCINES (1 [facility] 17:56:50 of 3 - 3-dose series) Hospit al [code = HEPATITIS B VACCINES (1 of 3 - 3-dose series)] Future Scheduled 2022-01-03 COVID-19 VACCINE (#1) [facility] 17:56:50 [code = COVID-19 VACCINE Hos pital (#1)] Future Scheduled 2022-01-03 COLONOSCOPY SCREENING [facility] 17:56:50 [code = COLONOSCOPY Hospital SCREENING] Future Scheduled 2022-01-03 SHINGLES VACCINES (1 of [facility] 17:56:50 2) [code = SHINGLES Hospital VACCINES (1 of 2)] Future Scheduled 2022-01-03 INFLUENZA VACCINE [code = [facility] 17:56:50 INFLUENZA VACCINE] Hospital Future Scheduled 2022-01-03 HEPATITIS B VACCINES (1 [facility] 17:56:50 of 3 - 3-dose series) Hospit al [code = HEPATITIS B VACCINES (1 of 3 - 3-dose series)] Future Scheduled 2022-01-03 COVID-19 VACCINE (#1) [facility] 17:56:50 [code = COVID-19 VACCINE Hos pital (#1)] Future Scheduled 2022-01-03 COLONOSCOPY SCREENING [facility] 17:56:50 [code = COLONOSCOPY Hospital SCREENING] Future Scheduled 2022-01-03 SHINGLES VACCINES (1 of [facility] 17:56:50 2) [code = SHINGLES Hospital VACCINES (1 of 2)] Future Scheduled 2022-01-03 INFLUENZA VACCINE [code = [facility] 17:56:50 INFLUENZA VACCINE] Hospital Future Scheduled 2022-01-03 HEPATITIS B VACCINES (1 [facility] 17:56:50 of 3 - 3-dose series) Hospit al [code = HEPATITIS B VACCINES (1 of 3 - 3-dose series)] Future Scheduled 2022-01-03 COVID-19 VACCINE (#1) [facility] 17:56:50 [code = COVID-19 VACCINE Hos pital (#1)] Future Scheduled 2022-01-03 COLONOSCOPY SCREENING [facility] 17:56:50 [code = COLONOSCOPY Hospital SCREENING] Future Scheduled 2022-01-03 SHINGLES VACCINES (1 of [facility] 17:56:50 2) [code = SHINGLES Hospital VACCINES (1 of 2)] Future Scheduled 2022-01-03 INFLUENZA VACCINE [code = [facility] 17:56:50 INFLUENZA VACCINE] Hospital Future Scheduled 2022-01-03 HEPATITIS B VACCINES (1 [facility] 17:56:50 of 3 - 3-dose series) Hospit al [code = HEPATITIS B VACCINES (1 of 3 - 3-dose series)] Future Scheduled 2022-01-03 COVID-19 VACCINE (#1) [facility] 17:56:50 [code = COVID-19 VACCINE Hos pital (#1)] Future Scheduled 2022-01-03 COLONOSCOPY SCREENING [facility] 17:56:50 [code = COLONOSCOPY Hospital SCREENING] Future Scheduled 2022-01-03 SHINGLES VACCINES (1 of [facility] 17:56:50 2) [code = SHINGLES Hospital VACCINES (1 of 2)] Future Scheduled 2020 SHINGLES VACCINES ([address] [facility] Test 00:00:00 2) [code = SHINGLES Medical Center VACCINES (1 of 2)] Future Scheduled 2020 SHINGLES VACCINES ([address] [facility] Test 00:00:00 2) [code = SHINGLES Medical Center VACCINES (1 of 2)] Future Scheduled 1988 [facility]ITIS [facility] 00:[facility] [code = HEPATITIS C Medical Center SCREENING] Future Scheduled 1988 HEPATITIS C [facility] [code = HEPATITIS C Medical Center SCREENING] Future Scheduled [address] [facility] virus screening Medical Cent er (procedure) [code = 141180783] Future Scheduled [address] [facility] 00:[facility]:00 virus screening Medical Cent er (procedure) [code = 941770675] Future Scheduled [address] [facility] Test 00:00:00 Counseling and Screening Med ica Center (12+) [code = Tobacco Cessation Counseling and Screening (12+)] Future Scheduled [address] [facility] Test 00:00:00 Counseling and Screening Med ica Center (12+) [code = Tobacco Cessation Counseling and Screening (12+)] Future Scheduled 1971-03-16 COVID-19 VACCINE (#1) [facility] 00:[facility]00 [code = COVID-19 VACCINE Med ical Center (#1)] Future Scheduled 1971-03-16 COVID-19 VACCINE (#1) [facility] 00:[facility]00 [code = COVID-19 VACCINE Med ical Center (#1)] Future Scheduled 1970 CT Colonography (combo) [facility] Test 00:00:00 [code = CT Colonography [facility] (combo)] Future Scheduled 1970 Screening for malignant [facility] Test 00:00:00 neoplasm of colon Medical Ce nter (procedure) [code = 347993994] Future Scheduled 1970 Screening for malignant [facility] Test 00:00:00 neoplasm of colon Medical Ce nter (procedure) [code = 899534565] Future Scheduled 1970 Screening for malignant [facility] Test 00:00:00 neoplasm of colon Medical Ce nter (procedure) [code = 294023270] Future Scheduled 1970 Screening for malignant [facility] Test 00:00:00 neoplasm of colon Medical Ce nter (procedure) [code = 220881099] Future Scheduled 1970 Sigmoidoscopy [code = [facility] S[facility]oscopy] Medical Cente r Future Scheduled 1970 CT Colonography (combo) [facility] Test 00:00:00 [code = CT Colonography [facility] (combo)] Future Scheduled 1970 Screening for malignant [facility] Test 00:00:00 neoplasm of colon Medical Ce nter (procedure) [code = 577745498] Future Scheduled 1970 Screening for malignant [facility] Test 00:00:00 neoplasm of colon Medical Ce nter (procedure) [code = 079837431] Future Scheduled 1970 Screening for malignant [facility] Test 00:00:00 neoplasm of colon Medical Ce nter (procedure) [code = 251152086] Future Scheduled 1970 Screening for malignant [facility] Test 00:00:00 neoplasm of colon Medical Ce nter (procedure) [code = 140238596] Future Scheduled 1970 Sigmoidoscopy [facility]code [facility] Sigmoidoscopy] Medical Cente r Encounters Start End Encounter Admission Attending Care Care Encounter Source Date/Time Date/Time Type Type Clinicians Facility Department ID 2022-11-24 Inpatient ER [facility] [id number] [facility] 18:28:35 MRINALINI 2022-11-24 Inpatient ER [facility] [id number] SLE 08:11:11 MRINALINI 2022-11-23 Inpatient ER [facility] [id number] [facility] 12:42:16 BELLE 2022-11-22 Inpatient ER [facility] [id number] [facility] 09:39:31 2022-11-22 Inpatient ER [facility] [id number] SLE 09:07:19 2022-11-21 Inpatient ER CATES, [facility] [id number] [facility] 22:21:04 [facility] 2022-11-21 [id number] 16:26:35 [facility] 2023-01-30 2023-01-30 Outpatient R [facility] [id number] Univers 12:30:00 12:30:00 ity of [facility] 2022-12-20 2022-12-20 [facility] 1.2.840.114 [id number] Univers 00:00:00 00:00:00 Blessing A HEALTH 350.1.13.10 i ty of [place] 4.2.7.2.686 Adrien as BORIS?BLEA [id number] [address] MEDICAL OFFICE [facility] 2022-12-17 2022-12-17 Telephone Elijah [facility] 1.2.840.114 [id number] Univers 00:00:00 00:00:00 , Jamila [employer] 350.1.13.10 ity of M [place] 4.2.7.2.686 Adrien as BORIS?BLEA [phone] [address] MEDICAL OFFICE [facility] 2022-12-13 2022-12-13 [facility] [id number] Univers 12:30:00 12:30:00 [facility] 2022-12-12 [facility] [id number] Univers 12:30:00 12:30:00 [facility] 2022-12-11 2022-12-11 Telephone [facility] 1.2.304.118 [id number] Univers 00:00:00 00:00:00 Blessing A HEALTH 350.1.13.10 i ty of [place] 4.2.7.2.686 Adrien as BORIS?BLEA [phone] [address] [facility] 2022-12-11 2022-12-11 Patient [place] 1.2.840.114 [id number] Univers 00:00:00 00:00:00 Secure Msfeng Funk A HEALTH 350.1.13.10 ity of [place] 4.2.7.2.686 Adrien as BORIS?BLEA [phone] [address] OFFICE [facility] 2022-12-10 2022-12-10 Orders Doctor ALEM 1.2.840.114 [id number] Univers 00:00:00 00:00:00 Only Unassigned, JOSESITO 350.1.13.10 ity of [place] [facility] 4.2.7.2.686 Adrien as [id number] [address] 2022-12-07 2022-12-07 Telephone Elijah [facility] 1.2.840.114 [id number] Univers 00:00:00 00:00:00 , Jamila HEALTH 350.1.13.10 ity of M [place] 4.2.7.2.686 Adrien as BORIS?BLEA [id number] [address] OFFICE [facility] 2022-12-05 2022-12-05 Telephone Elijah [facility] 1.2.840.114 [id number] Univers 00:00:00 00:00:00 , Jamila HEALTH 350.1.13.10 ity of M [place] 4.2.7.2.686 Adrien as BORIS?BLEA [phone] [address] OFFICE [facility] 2022-12-04 2022-12-04 Refill Elijah [facility] 1.2.840.114 [id number] Univers 00:00:00 00:00:00 , Jamila HEALTH 350.1.13.10 ity of M [place] 4.2.7.2.686 Adrien as BORIS?BLEA [phone] [address] OFFICE [facility] 2022-12-04 2022-12-04 Refill Hunt [facility] 1.2.840.114 [id number] Univers 00:00:00 00:00:00 , Jamila HEALTH 350.1.13.10 ity of M [place] 4.2.7.2.686 Adrien as BORIS?BLEA [phone] [address] MEDICAL OFFICE [facility] 2022-11-30 2022-11-30 Outpatient R DEVEN [facility] [id number] Univers 14:00:00 14:00:00 DILIP ity o f [facility] 2022-11-28 2022-11-28 Outpatient R ELIJAH [facility] [id number] Univers 11:20:00 12:31:29 , JAMILA it y of [facility] 2022-11-28 2022-11-28 Office [facility] 1.2.840.114 [id number] Univers 11:20:00 12:31:29 Visit , Jamila [facility] 350.1.13.10 ity of M [place] 4.2.7.2.686 Adrien as BORIS?BLEA [id number] [address] MEDICAL OFFICE [facility] 2022-11-28 2022-11-28 Patient [facility] 1.2.840.114 [id number] Univers 00:00:00 00:00:00 Outreach Ashley Tito HEALTH 350.1.13.10 i ty of [place] 4.2.7.2.686 Adrien as BORIS?BLEA [id number] [address] OFFICE [facility] 2022-11-26 2022-11-26 Telephone [facility] 1.2.191.167 [id number] Univers 00:00:00 00:00:00 Blessing A HEALTH 350.1.13.10 i ty of [place] 4.2.7.2.686 Adrien as BORIS?BLEA [id number] [address] MEDICAL OFFICE BUILDING 2022-11-21 2022-11-25 Hospital ER Dalila Rodriguez [facility] 1 [id number] [facility] 14:05:00 11:27:00 Encounter Belle Cates Najamus M edical Kulkarni [facility] 2022-11-21 2022-11-25 Inpatient ER DRISS HANEY Neuro ICU [id number] [facility] 14:05:00 11:27:00 MRINALINI 2022-11-21 2022-11-25 [facility] Dalila Rodriguezb [facility] [id number] [facility] 14:05:[facility] 11:27:00 Belle Reynolds [facility] 2022-11-24 2022-11-[address] [facility] [id number] 00:00:00 00:00:[address] [facility] 2022-11-24 2022-11-[address] [facility] [id number] 00:00:00 00:00:00 [facility] 2022-11-23 2022-11-23 Telephone [facility] 1.2.371.359 [id number] Univers 00:00:00 00:00:00 Dilip [facility] 350.1.13.10 ity of [place] [id number] Ri dicid NAL 059 [facility] 2022-11-23 2022-11-23 Refmarah VillalobosALBUQUER[facility] 1.2.840.114 [id number] Univers 00:00:00 00:00:00 Hue HEALTH 350.1.13.10 it y of [place] 4.2.7.2.686 Adrien as BORIS?BLEA [phone] [facility] [address] MEDICAL OFFICE BUILDING 2022-11-21 2022-11-21 Patient [facility] 1.2.840.114 [id number] Univers 00:00:00 00:00:00 Secure Msg Blessing A HEALTH 350.1.13.10 ity of [facility] 4.2.7.2.686 Adrien as BORIS?BLEA [phone] Ri dical [facility] 044 [facility] OFFICE BUILDING 2022-11-21 2022-11-[address] [facility] [id number] 00:00:00 00:00:00 [facility] 2022-11-21 2022-11-[address] [facility] [id number] 00:00:00 00:00:[address] [facility] 2022-11-12 2022-11-12 [facility] 1.2.840.114 [id number] Univers 00:00:00 00:00:00 Blessing A HEALTH 350.1.13.10 i ty of [place] 4.2.7.2.686 Adrien as BORIS?BLEA [phone] [address] OFFICE [facility] 2022-11-10 2022-11-10 Isabella Bolton[facility] 1.2.840.114 [id number] Univers 00:00:00 00:00:00 [facility] 350.1.13.10 i ty of [place] 4.2.7.2.686 Adrien as BORIS?BLEA [phone] [address] 2022-11-10 2022-11-10 Isabella [facility] 1.2.840.114 [id number] Univers 00:00:00 00:00:00 Blessing A HEALTH 350.1.13.10 i ty of [facility] 4.2.7.2.686 Adrien as BORIS?BLEA [phone] [address] 2022-10-28 2022-10-28 Emergency X [facility] ERT [id number] Univers 10:30:00 18:00:00 CANDIDA donnelly [facility] 2022-10-28 2022-10-28 Emergency Humber[facility]AL[facility] 1.2.313.410 [id number] Univers 10:30:00 18:00:00 Candida S [facility] 350.1.13.10 i ty of [place].2.[place] [id number] [address] 2022-10-24 2022-10-24 Outpatient Sofia [facility] [id number] Univers 14:40:00 14:40:00 DILIP donnelly o f [facility] 2022-10-15 2022-10-15 [facility] [id number] Univers 14:40:00 14:40:00 RICARDABEAU cony o f [facility] 2022-10-12 2022-10-12 Refill [facility] 1.2.840.114 [id number] Univers 00:00:00 00:00:00 Blessing A HEALTH 350.1.13.10 i ty of [place] 4.2.7.2.686 Adrien as BORIS?BLEA [phone] [address] 2022-10-12 2022-10-12 Refill [facility] 1.2.840.114 [id number] Univers 00:00:00 00:00:00 Blessing A HEALTH 350.1.13.10 i ty of [place] 4.2.7.2.686 Adrien as BORIS?BLEA [phone] [address] 2022-10-12 2022-10-[address] [facility] 1.2.840.114 [id number] Univers 00:00:00 00:00:00 Blessing A HEALTH 350.1.13.10 i ty of [place] 4.2.7.2.686 Adrien as BORIS?BLEA [phone] [address] 2022-10-12 2022-10-12 [facility] 1.2.840.114 [id number] Univers 00:00:00 00:00:00 [facility] HEALTH 350.1.13.10 i ty of [place] 4.2.7.2.686 Adrien as BORIS?BLEA [phone] [address] 2022-10-01 2022-10-01 [facility] [id number] Univers 14:00:00 14:00:00 DILIP alonso [facility] 2022-09-18 2022-09-18 Telephone [facility] 1.2.234.705 [id number] Univers 00:00:00 00:00:00 [facility] [place] 350.1.13.10 ity of [facility] [place] [phone] Ri dicid NAL 9 [facility] 2022 2022 Outpatient R DEVEN, [facility] [id number] Univers 09:00:00 09:00:00 QIANGJUN ity o f [facility] 2022-09-05 2022-09-05 Refill [facility] 1.2.840.114 [id number] Univers 00:00:00 00:00:00 Blessing A HEALTH 350.1.13.10 i ty of [place] 4.2.7.2.686 Adrien as BORIS?BLEA [id number] [address] OFFICE [facility] 2022-09-03 2022-09-03 Patient [facility] 1.2.840.114 [id number] Univers 00:00:00 00:00:00 Secure Msg Blessing A HEALTH 350.1.13.10 ity of [place] 4.2.7.2.686 Adrien as BORIS?BLEA [id number] [address] OFFICE [facility] 2022-08-31 2022-08-31 Patient [facility] 1.2.840.114 [id number] Univers 00:00:00 00:00:00 Secure Msg Blessing A HEALTH 350.1.13.10 ity of [place] 4.2.7.2.686 Adrien as BORIS?BLEA [id number] [address] OFFICE [facility] 2022-08-31 2022-08-31 Patient [facility] 1.2.840.114 [id number] Univers 00:00:00 00:00:00 Secure Msg Qiangjun [place] 350.1.13.10 ity of [place] [id number] [facility] NAL [address] [place] [address] 2022-08-31 2022-08-31 Refill [facility] 1.2.840.114 [id number] Univers 00:00:00 00:00:00 Maggie MULTISPEC 350.1.13.10 ity of [place] C[place] [phone] Adore cotton AND JAIRO [address] [facility] 2022-08-31 2022-08-31 Refill Bill, [facility] 1.2.840.114 [id number] Univers 00:00:00 00:00:00 Alfred HEALTH 350.1.13.10 it y of [place] 4.2.7.2.686 Adrien as BORIS?BLEA [phone] Ri dical ANUM [address] MEDICAL OFFICE [facility] 2022-08-27 2022-08-27 Telephone [facility] 1.2.968.449 [id number] Univers 00:00:00 00:00:00 Qiadeon [facility] 350.1.13.10 ity of [facility] 4.2.7.2.[address] [place] [facility] [phone] Ri dical NAL 059 [facility] 2022-08-14 2022-08-14 Patient Farzana, [facility] 1.2.840.114 [id number] Univers 00:00:00 00:00:00 Secure [facility] Blessing A HEALTH 350.1.13.10 ity of [facility] 4.2.7.2.686 Adrien as BORIS?BLEA [phone] Ri dical ANUM [address] [place] [address] OFFICE [facility] 2022-08-11 2022-08-11 Emergency ER CATANESCU, [facility] [id number] [place] 05:03:00 06:34:00 TEREZA -[id number] [facility] 2022-07-21 2022-07-21 Emergency ER SHEKHAR, [facility] D000 [id number] [place] 19:47:00 21:28:00 CASSY -[id number] [facility] 2022-07-03 2022-07-03 Outpatient MICA_MELISSA RESENDIZ [facility] 814 [place] 00:00:00 00:00:00 HN 0221 da [facility] 2022-07-02 2022-07-02 Telephone [facility] 1.2.840.114 1 [id number] Univers 00:00:00 00:00:00 Kay DARBYPEC 350.1.13.10 [place] C[place] [id number] [facility] AND JAIRO [address] [facility] 2022-06-25 2022-06-25 Refill Doctor [facility] 1.2.840.114 [id number] Univers 00:00:00 00:00:00 Unassigned, HEALTH 350.1.13.10 ity of [place] 4.2.7.2.686 Adrien as BORIS?BLEA [phone] [address] MEDICAL OFFICE BUILDING 2022-06-25 2022-06-25 Refill Farzana, [facility] 1.2.840.114 [id number] Univers 00:00:00 00:00:00 Blessing A HEALTH 350.1.13.10 i ty of [place] 4.2.7.2.686 Adrien as BORIS?BLEA [id number] [address] MEDICAL OFFICE [facility] 2022-06-25 2022-06-25 Refill Farzana, [facility] 1.2.840.114 [id number] Univers 00:00:00 00:00:00 Blessing A HEALTH 350.1.13.10 i ty of [facility] 4.2.7.2.686 Adrien as BORIS?BLEA [id number] [address] MEDICAL OFFICE [facility] 2022-06-25 2022-06-25 Patient Farzana, [facility] 1.2.840.114 [id number] Univers 00:00:00 00:00:00 Secure Msg Blessing A HEALTH 350.1.13.10 ity of [facility] 4.2.7.2.686 Adrien as BORIS?BLEA [id number] [address] MEDICAL OFFICE BUILDING 2022-05-03 2022-05-03 Orders Doctor ALEM 1.2.840.114 [id number] Univers 00:00:00 00:00:00 Only Unassigned, JOSESITO 350.1.13.10 ity of [place] [facility] 4.2.7.2.686 Adrien as [phone] [facility] [address] 2022-04-24 2022-04-24 Patient Deven, [facility] 1.2.840.114 [id number] Univers 00:00:00 00:00:00 Secure Msg Dilip [place] 350.1.13.10 ity of [place] [phone] Ri dicelizabeth HUITRON 059 [facility] 2022-04-23 2022-04-23 Patient Farzana, [facility] 1.2.840.114 [id number] Univers 00:00:00 00:00:00 Secure Msg Blessing A HEALTH 350.1.13.10 ity of [place] 4.2.7.2.686 Adrien as BORIS?BLEA [phone] Ri susanna ROWAN 044 [facility] OFFICE [facility] 2022-04-23 2022-04-23 Patient Farzana, [facility] 1.2.840.114 [id number] Univers 00:00:00 00:00:00 Secure Msg Blessing A HEALTH 350.1.13.10 ity of [facility] 4.2.7.2.686 Adrien as BORIS?BLEA [phone] [facility] ROWAN [address] [place] [address] OFFICE [facility] 2022-04-22 2022-04-22 Refill Farzana, [facility] 1.2.840.114 [id number] Univers 00:00:00 00:00:00 Blessing A HEALTH 350.1.13.10 i ty of [place] 4.2.7.2.686 Adrien as BORIS?BLEA [phone] [facility] VONDA[address] OFFICE [facility] 2022-04-08 2022-04-08 Telephone [facility] 1.2.162.675 [id number] Univers 00:00:00 00:00:00 Blessing A HEALTH 350.1.13.10 i ty of [place] 4.2.7.2.686 Adrien as BORIS?BLEA [phone] [facility] VON[address] OFFICE [facility] 2022-04-06 2022-04-06 Emergency ER SKYLAR [facility] [id number] [place] 12:30:00 15:21:00 ADITYA [id number] [facility] 2022-04-06 2022-04-06 Refill [facility] 1.2.840.114 [id number] Univers 00:00:00 00:00:00 Qiarichbeau [place] 350.1.13.10 ity of [place] [phone] Ri dic[address] 2022-04-04 2022-04-04 Patient [facility] 1.2.840.114 [id number] Univers 00:00:00 00:00:00 Secure Msg Kay DARBYPEC 350.1.13.10 ity of [place] [id number] [facility] AND [address] [facility] 2022-04-03 2022-04-03 Office [facility] 1.2.840.114 [id number] Univers 14:20:00 14:20:00 Visit Dilip CARLOS 350.1.13.10 ity of [place] [id number] [address] 2022-04-03 2022-04-03 Outpatient R DEVEN [facility] [id number] Univers 14:20:00 14:09:45 QIADEON ity o f [facility] 2022-04-03 2022-04-03 Refill [facility] 1.2.840.114 [id number] Univers 00:00:00 00:00:00 Kay DARBYPEC 350.1.13.10 [place] [phone] [facility] AND [address] [facility] 2022-04-03 2022-04-03 Orders Doctor FERRARA 1.2.840.114 [id number] Univers 00:00:00 00:00:00 Only Unassigned, JOSESITO 350.1.13.10 ity of [place] [facility] 4.2.7.2.686 Adrien as [phone] [place] [address] [place] 2022-03-19 2022-03-19 [facility] [id number] Univers 09:20:00 09:20:00 QIANGJUN ity o f [facility] 2022-03-19 2022-03-19 Outpatient R DEVEN, [facility] [id number] Univers 09:20:00 09:20:00 DILIP alonso [facility] 2022-03-19 2022-03-19 Outpatient R DEVEN, [facility] [id number] Univers 09:20:00 09:20:00 DILIP alonso [facility] 2022-03-19 2022-03-19 Outpatient R DEVEN, [facility] [id number] Univers 09:20:00 09:20:00 DILIP alonso [facility] 2022-03-19 2022-03-19 Outpatient R DEVEN, [facility] [id number] Univers 09:20:00 09:20:00 DILIP alonso [facility] 2022-02-15 2022-02-15 Telephone [facility] 1.2.151.120 [id number] Univers 00:00:00 00:00:00 Blessing A HEALTH 350.1.13.10 i ty of [place] 4.2.7.2.686 Adrien as BORIS?BLEA [id number] [address] MEDICAL OFFICE [facility] 2022-02-14 2022-02-14 Outpatient FERLONNIE_MELISSA [facility] [address] [place] 00:00:00 00:00:00 HN [facility]5 [facility] 2022-02-14 2022-02-14 [facility] 1.2.840.114 [id number] Univers 00:00:00 00:00:00 Secure Msg Blessing A HEALTH 350.1.13.10 ity of [place] 4.2.7.2.686 Adrien as BORIS?BLEA [phone] [address] MEDICAL OFFICE [facility] 2022-02-13 2022-02-13 [facility] [id number] Univers 12:37:39 23:59:00 BLESSING donnelly [facility] 2022-02-13 2022-02-13 [facility] [place] [address].2.840.114 [id number] Univers 12:37:39 23:59:00 Encounter Blessing [place] 350.1.13.10 [place] [id number] [facility] [address] [place] 2022-02-08 2022-02-09 Inpatient ER Nick [facility] [id number] [place] 06:37:00 18:02:00 [id number] [facility] 2022-02-09 2022-02-09 Refmarah Bolton [facility] 1.2.840.114 [id number] Univers 00:00:00 00:00:00 Dilip [place] 350.1.13.10 ity of [facility] [place].2.7.2.[place] [id number] Ri dicid NAL 059 [facility] 2022-02-08 2022-02-08 Patient Rico [facility] 1.2.840.114 [id number] Univers 00:00:00 00:00:00 Secure Msg Jacqui Beaver [place] 350.1.13.10 ity of [facility] 4.2.7.2.[place] [phone] Ri dicid NAL 044 [facility] 2022-02-08 2022-02-08 Patient Farzana [facility] 1.2.840.114 [id number] Univers 00:00:00 00:00:00 Secure Msg Blessing A HEALTH 350.1.13.10 ity of [place] 4.2.7.2.686 Adrien as BORIS?BLEA [id number] [address] OFFICE [facility] 2022-02-05 2022-02-05 Telephone Farzana [facility] 1.2.263.999 [id number] Univers 00:00:00 00:00:00 Blessing A HEALTH 350.1.13.10 i ty of [facility] 4.2.7.2.686 Adrien as BORIS?BLEA [id number] [address] OFFICE [facility] 2022-02-02 2022-02-02 Paper Latcher Lab, Ang - Israel [facility] 1.2.840.1 14 [id number] Univers 16:00:00 16:15:00 Visit Blessing Yanes HEALTH 350.1.13.10 ity of [place] 4.2.7.2.686 Adrien as BORIS?BLEA [phone] Ri susanna ROWAN [address] MEDICAL OFFICE BUILDING 2022-02-02 2022-02-02 [facility] [id number] Univers 15:00:00 15:49:47 BLESSING ity [facility] 2022-02-02 2022-02-02 Office [facility] 1.2.840.114 [id number] Univers 15:00:00 15:49:47 Visit Blessing Herr HEALTH 350.1.13.10 i ty of [place] 4.2.7.2.686 Adrien as BORIS?BLEA [phone] [facility] [address] MEDICAL OFFICE [facility] 2022-02-02 2022-02-02 Out[facility] [id number] Univers 14:30:00 14:30:00 BLESSING ity [facility] 2022-01-19 2022-01-19 Orders Doctor ALEM 1.2.840.114 [id number] Univers 00:00:00 00:00:00 Only Unassigned, JOSESITO 350.1.13.10 ity of [place] [facility] 4.2.7.2.686 Adrien as [phone] [facility] [address] 2022-01-16 2022-01-16 Isabella Bolton [facility] 1.2.840.114 [id number] Univers 00:00:00 00:00:00 Dilip [place] 350.1.13.10 ity of [place].2.7.2.[place] [phone] Ri dicid NAL 059 [facility] 2022-01-08 2022-01-08 ALEM Hernandez 1.2.840.114 [id number] Univers 00:00:00 00:00:00 Management Ashley BELLAMY 350.1.13.10 ity of [facility] 4.2.7.2.686 Adrien as [phone] [facility] [address] 2022-01-06 2022-01-07 [facility] [id number] [place] 14:59:00 16:35:00 Mariola -[id number] [facility] 2022-01-05 2022-01-05 Emergency ER Leticia [facility] [id number] [place] 21:17:00 22:57:00 Yissel -[id number] [facility] 2022-01-04 2022-01-04 Patient Gómez, [facility] 1.2.840.114 [id number] Univers 00:00:00 00:00:00 Secure Msg Jacqui Beaver HEALTH 350.1.13.10 ity of [place] 4.2.7.2.686 Adrien as BORIS?BLEA [phone] [address] OFFICE [facility] 2022-01-04 2022-01-04 Patient Farzana, [facility] 1.2.840.114 [id number] Univers 00:00:00 00:00:00 Secure Msg Blessing A HEALTH 350.1.13.10 ity of [place] 4.2.7.2.686 Adrien as BORIS?BLEA [id number] [address] OFFICE [facility] 2022-01-02 2022-01-02 Refill [facility] 1.2.840.114 [id number] Univers 00:00:00 00:00:00 Blessing A HEALTH 350.1.13.10 i ty of [place] 4.2.7.2.686 Adrien as BORIS?BLEA [id number] [address] OFFICE [facility] 2022-01-01 2022-01-01 Refill [facility] 1.2.840.114 [id number] Univers 00:00:00 00:00:00 Blessing A HEALTH 350.1.13.10 i ty of [place] 4.2.7.2.686 Adrien as BORIS?BLEA [id number] [address] 2021-12-29 2021-12-29 Refill [facility] 1.2.840.114 [id number] 69 Univers 00:00:00 00:00:00 Qiarichjun [place] 350.1.13.10 ity of [place].2.[place] [phone] [facility] NAL 059 [facility] 2021-12-25 2021-12-25 Orders Doctor ALEM 1.2.840.114 [id number] Univers 00:00:00 00:00:00 Only Unassigned, JOSESITO 350.1.13.10 ity of [place] [facility] 4.2.7.2.686 Adrien as [phone] [address] 2021-12-06 2021-12-06 Out[facility] [id number] Univers 11:30:00 11:30:00 BLESSING ity of [facility] 2021-12-01 2021-12-01 Refill [facility] 1.2.840.114 [id number] Univers 00:00:00 00:00:00 Blessing A HEALTH 350.1.13.10 i ty of [place] 4.2.7.2.686 Adrien as BORIS?BLEA [id number] [address] OFFICE [facility] 2021-11-30 2021-11-30 Refill [facility] 1.2.840.114 [id number] Univers 00:00:00 00:00:00 Qiadeon [place] 350.1.13.10 ity of [place].2.[place] [phone] [place] 486009 [facility] 2021-11-30 2021-11-30 Telephone [facility] 1.2.842.213 [id number] 8009 Univers 00:00:00 00:00:00 Blessing A HEALTH 350.1.13.10 i ty of [place] 4.2.7.2.686 Adrien as BORIS?BLEA [phone] [address] OFFICE [facility] 2021-11-17 2021-11-17 Telephone [facility] 1.2.217.936 [id number] Univers 00:00:00 00:00:00 Blessing A HEALTH 350.1.13.10 i ty of [place] 4.2.7.2.686 Adrien as BORIS?BLEA [id number] [address] OFFICE [facility] 2021-11-17 2021-11-17 Telephone [facility] 1.2.840.114 [id number] Univers 00:00:00 00:00:00 Jany HEALTH 350.1.13.10 it y of [place] 4.2.7.2.686 Adrien as BORIS?BLEA [id number] [address] OFFICE [facility] 2021-11-14 2021-11-14 Patient [facility] 1.2.840.114 [id number] Univers 00:00:00 00:00:00 Secure Msg Jacqui M HEALTH 350.1.13.10 ity of [place] 4.2.7.2.686 Adrien as BORIS?BLEA [id number] [address] 2021-11-14 2021-11-14 Patient [facility] 1.2.840.114 [id number] Univers 00:00:00 00:00:00 Secure Msg Jacqui M HEALTH 350.1.13.10 ity of [place] 4.2.7.2.686 Adrien as OBRIS?BLEA [phone] [address] 2021-11-14 2021-11-14 Patient [facility] 1.2.840.114 [id number] Univers 00:00:00 00:00:00 Secure Msg Blessing A HEALTH 350.1.13.10 ity of [place] 4.2.7.2.686 Adrien as BORIS?BLEA [id number] [address] 2021-11-08 2021-11-08 Emergency X SINGER [facility] ERT [id number] Univers 07:59:00 08:59:00 BETTY donnelly of [facility] 2021-11-08 2021-11-08 Emergency [facility] 1.2.279.721 [id number] Univers 07:59:00 08:59:00 Betty TERRANCE 350.1.13.10 i ty of [place].2.[place] [id number] [address] 2021-11-08 2021-11-08 Telephone [facility] 1.2.800.378 [id number] Univers 00:00:00 00:00:00 Blessing A HEALTH 350.1.13.10 i ty of [place] 4.2.7.2.686 Adrien as BORIS?BLEA [id number] [address] OFFICE [facility] 2021-11-07 2021-11-07 Outpatient R IHSAN [facility] [id number] Univers 14:30:00 14:30:00 KAY pickering [facility] 2021-11-07 2021-11-07 Outpatient R IHSAN [facility] [id number] Univers 14:30:00 14:30:00 KAY pickering [facility] 2021-11-07 2021-11-07 Outpatient R IHSAN [facility] [id number] Univers 14:30:00 14:30:00 KAY alonso [facility] 2021-11-01 2021-11-01 Outpatient R CARLO [facility] [id number] Univers 12:30:00 12:30:00 KORY [facility] 2021-11-01 2021-11-01 Telephone [facility] 1.2.192.054 [id number] Univers 00:00:00 00:00:00 Blessing Herr HEALTH 350.1.13.10 i ty of [place] 4.2.7.2.686 Adrien as BORIS?BLEA [id number] [address] OFFICE [facility] 2021-10-25 2021-10-25 [facility] [id number] Univers 09:30:00 09:48:15 BLESSING donnelly [facility] 2021-10-25 2021-10-25 Office [facility] 1.2.840.114 [id number] Univers 09:30:00 09:48:15 Visit Blessing A HEALTH 350.1.13.10 i ty of [place] 4.2.7.2.686 Adrien as BORIS?BLEA [id number] [address] OFFICE [facility] 2021-10-19 2021-10-19 Telephone [facility] 1.2.919.742 [id number] Univers 00:00:00 00:00:00 Dilip [facility] 350.1.13.10 ity [facility] 4.2.7.2.686 [place] [phone] Ri dicelizabeth NAL 059 [facility] 2021-10-18 2021-10-18 Patient [facility] 1.2.840.114 [id number] Univers 00:00:00 00:00:00 Secure Msg Jacqui Beaver HEALTH 350.1.13.10 ity of [place] 4.2.7.2.686 Adrien as BORIS?BLEA [phone] Ri susanna ROWAN [address] [place] [address] 2021-09-28 2021-09-28 [facility] [id number] Univers 15:30:00 15:30:00 [facility] 2021-09-28 2021-09-28 Outpatient R JAMES [facility] [id number] Univers 15:30:00 15:30:00 [facility] 2021-09-27 2021-09-27 [facility] [id number] Univers 10:40:00 10:40:00 PRINCESS [facility] 2021-09-27 2021-09-27 Telephone [facility] 1.2.407.553 [id number] Univers 00:00:00 00:00:00 Blessing A HEALTH 350.1.13.10 i ty of [place] 4.2.7.2.686 Adrien as BORIS?BLEA [id number] Ri susanna ROWAN [address] [place] [address] OFFICE [facility] 2021-09-26 2021-09-26 Outpatient R BRENDEN [facility] [id number] Univers 14:00:00 14:00:00 SHANNAN [facility] 2021-09-21 2021-09-21 [facility] BLADIMIR Crespo ..840.114 9 [id number] Univers 15:19:00 23:59:00 Encounter Cass Wall[place] 350.1.13.10 ity [facility] 4.2.7.2.686 Adrien as [phone] [address] 2021-09-21 2021-09-21 Outpatient R VONNIE [facility] ACO [id number] Univers 00:00:00 23:59:00 CASS ity [facility] 2021-09-20 2021-09-20 Paper Latcher Lab, Ang - Db [facility] 1.2.840.1 14 [id number] Univers 11:00:00 11:15:00 Visit Farzana Blessing Herr HEALTH 350.1.13.10 ity of [place] 4.2.7.2.686 Adrien as BORIS?BLEA [id number] [facility] [address] MEDICAL OFFICE [facility] 2021-09-20 2021-09-20 Outpatient R FARZANA, [facility] [id number] Univers 11:00:00 11:00:00 BLESSING [facility] 2021-09-20 2021-09-20 Office [facility] 1..840.114 [id number] Univers 10:30:00 11:00:00 Visit Blessing Herr HEALTH 350.1.13.10 i ty of [place] 4.2.7.2.686 Adrien as BORIS?BLEA [id number] [address] OFFICE [facility] 2021-09-20 2021-09-20 Outpatient R FARZANA, [facility] [id number] Univers 10:30:00 10:30:00 BLESSING [facility] 2021-09-20 2021-09-20 Telephone [facility] 1..506.856 [id number] Univers 00:00:00 00:00:00 Blessing Herr HEALTH 350.1.13.10 i ty of [place] 4.2.7.2.686 Adrien as BORIS?BLEA [phone] [address] OFFICE [facility] 2021-09-18 2021-09-18 Telephone [facility] 1.2.412.526 [id number] Univers 00:00:00 00:00:00 Dilip [place] 350.1.13.10 ity [facility] 4.2.7.2.[place] [phone] Ri dical NAL 059 [facility] 2021-09-15 2021-09-15 Patient Rico [facility] 1.2.840.114 [id number] Univers 00:00:00 00:00:00 Secure Msg Jacqui Beaver [facility] 350.1.13.10 ity of [facility] 4.2.7.2.686 Adrien as BORIS?BLEA [phone] Ri dical KNEY 044 [facility] OFFICE [facility] 2021-09-14 2021-09-14 Outpatient R CARLO [facility] [id number] Univers 13:42:35 23:59:00 KORY [facility] 2021-09-14 2021-09-14 Outpatient R DEVEN, [facility] [id number] Univers 15:00:00 15:27:51 DILIP cony o f [facility] 2021-09-14 2021-09-14 Office [facility] 1.2.840.114 [id number] Univers 15:00:00 15:27:51 Visit Dilip CARLOS 350.1.13.10 ity of [place].2.[place] [phone] Ri ana paulaid NAL [address] [place] [address] 2021-09-14 2021-09-14 Outpatient R DEVEN [facility] [id number] Univers 15:00:00 15:00:00 [facility] 2021-09-14 2021-09-14 Outpatient R CARLO [facility] [id number] Univers 14:00:00 14:00:00 KORY [facility] 2021-09-14 2021-09-14 Paper Latcher Therapist, Adc Respiratory [facility] 1..840.114 [id number] Univers 12:30:00 12:45:00 Visit Thanh Gay 350.1.13. 10 ity of [facility] 4.2.7.2.[place] [id number] [facility] [address] 2021-09-14 2021-09-14 Outpatient Sofia GAY [facility] [id number] Univers 12:30:00 12:30:00 THANH ity [facility] 2021 2021 Outpatient R DEANN [facility] [id number] Univers 13:40:00 13:40:00 [facility] 2021-09-06 2021-09-06 Telephone [facility] 1.2.052.744 [id number] Univers 00:00:00 00:00:00 Blessing Herr [facility] 350.1.13.10 i ty of [place] 4.2.7.2.686 Adrien as BORIS?BLEA [id number] Ri susanna [address] MEDICAL OFFICE BUILDING 2021-09-05 2021-09-05 Outpatient R IHSAN [facility] [id number] Univers 13:30:00 15:06:45 KAY alonso [facility] 2021-09-05 2021-09-05 Office [facility] 1.2.840.114 [id number] Univers 13:30:00 15:06:45 Visit Kay BARR 350.1.13.10 ity of [facility] 4.2.7.2.[place] [id number] [facility] AND JAIRO [address] [facility] 2021-09-05 2021-09-05 Outpatient Sofia BUSH [facility] [id number] Univers 13:30:00 13:30:00 KAY pickering [facility] 2021-09-05 2021-09-05 Outpatient R IHSAN [facility] [id number] Univers 13:30:00 13:30:00 KAY pickering [facility] 2021-09-04 2021-09-04 Office MELIZA Morales 1.2.282.796 [id number] Univers 08:00:00 08:53:32 Visit Betty Y 350.1.13.10 i ty of [facility] 4.2.7.2.686 Adrien as BANK [phone] [facility] BLDG. [address] 2021-09-04 2021-09-04 Outpatient R CARMEN [facility] [id number] Univers 08:00:00 08:53:32 BETTY ity o f [facility] 2021-09-04 2021-09-04 Outpatient R MORALES, [facility] [id number] Univers 08:00:00 08:53:32 BETTY ity o f [facility] 2021-09-04 2021-09-04 Outpatient R CARMEN [facility] [id number] Univers 08:00:00 08:00:00 BETTY ity o f [facility] 2021-09-04 2021-09-04 Outpatient R CARMEN [facility] [id number] Univers 08:00:00 08:00:00 BETTY ity o [facility] 2021-08-31 2021-08-31 [facility] 1.2.840.114 [id number] Univers 08:07:43 23:59:00 Encounter Blessing CARLOS 350.1.13.10 ity of [facility] 4.2.7.2.686 [facility] [id number] [facility] [address] 2021-08-31 2021-08-31 [facility] 1.2.840.114 [id number] [facility] 08:06:25 08:06:25 Encounter Sindy CARLOS 350.1.13.10 ity of [facility] 4.2.7.2.686 [facility] [id number] [facility] [address] 2021-08-31 2021-08-31 [facility] 1.2.840.114 [id number] Univers 08:06:11 08:06:11 Encounter Sindy CARLOS 350.1.13.10 ity of [facility] 4.2.7.2.686 [facility] [id number] [facility] [address] 2021-08-31 2021-08-31 Outpatient R SINDY ONEILL [facility] [id number] Univers 08:06:11 08:06:11 SINDY ONEILL [facility] 2021-08-31 2021-08-31 Outpatient R SINDY ONEILL [facility] [id number] Univers 08:06:11 08:06:11 SINDY ONEILL [facility] 2021-08-31 2021-08-31 [facility] 1.2.840.114 [id number] Univers 08:04:49 08:05:00 Encounter Sindy TOMASBEAU 350.1.13.10 ity of [facility] 4.2.7.2.686 [facility] [id number] [facility] [address] 2021-08-31 2021-08-31 Outpatient R SINDY ONEILL [facility] [id number] Univers 08:04:32 08:05:00 SINDY ONEILL [facility] 2021-08-31 2021-08-31 [facility] 1.2.840.114 [id number] Univers 08:04:32 08:05:00 Encounter Sindy CARLOS 350.1.13.10 ity [facility] 4.2.7.2.686 [facility] [id number] [facility] [address] 2021-08-31 2021-08-31 Outpatient R SINDY ONEILL [facility] [id number] Univers 00:00:00 00:00:00 SINDY ONEILL joie [facility] 2021-08-31 2021-08-31 Outpatient R FARZANA [facility] [id number] Univers 00:00:00 00:00:00 BLESSING y [facility] 2021-08-22 2021-08-22 Orders Doctor FERRARA 1.2.840.114 [id number] Univers 00:00:00 00:00:00 Only Unassigned, JOSESITO 350.1.13.10 ity of [place] [facility] 4.2.7.2.686 Adrien [id number] [facility] [address] 2021-08-21 2021-08-21 Outpatient R CARLO [facility] [id number] Univers 13:00:00 14:01:28 KORY ity [facility] 2021-08-21 2021-08-21 Office Carlo [facility] 1.2.840.114 [id number] Univers 13:00:00 14:01:28 Visit [facility] 350.1.13.10 it y of [place] 4.2.7.2.686 [place] a FARIA [id number] [address] OFFICE BUILDING 2021-08-21 2021-08-21 Outpatient R CARLO [facility] [id number] Univers 13:00:00 14:01:28 KORY ity of [facility] 2021-08-21 2021-08-21 Office Carlo, [facility] 1.2.840.114 [id number] Univers 13:00:00 14:01:28 Visit Kory HEALTH 350.1.13.10 it y of [place] 4.2.7.2.686 [place] FARIA [id number] [address] OFFICE BUILDING 2021-08-21 2021-08-21 Telephone [facility] 1.2.960.111 [id number] Univers 00:00:00 00:00:00 Blessing A HEALTH 350.1.13.10 i ty of [place] 4.2.7.2.686 Adrien as BORIS?BLEA [id number] [address] OFFICE BUILDING 2021-08-21 2021-08-21 Telephone Farzana, [facility] 1.2.348.817 [id number] Univers 00:00:00 00:00:00 Blessing A HEALTH 350.1.13.10 i ty of [place] 4.2.7.2.686 Adrien as BORIS?BLEA [id number] [address] OFFICE BUILDING 2021-08-21 2021-08-21 Telephone [facility] 1.2.060.868 [id number] Univers 00:00:00 00:00:00 Kory HEALTH 350.1.13.10 it y of [place] 4.2.7.2.686 [place] [id number] [address] OFFICE BUILDING 2021-08-21 2021-08-21 Telephone Matos, [facility] 1.2.756.807 [id number] Univers 00:00:00 00:00:00 Kory HEALTH 350.1.13.10 it y of [place] 4.2.7.2.686 [place] FAR[place] [id number] [address] OFFICE BUILDING 2021-08-21 2021-08-21 Telephone Farzana, [facility] 1.2.488.241 [id number] Univers 00:00:00 00:00:00 Blessing A HEALTH 350.1.13.10 i ty of [place] 4.2.7.2.686 Adrien as BORIS?BLEA [id number] [address] OFFICE [facility] 2021-08-21 2021-08-21 Telephone [facility] 1.2.204.415 [id number] Univers 00:00:00 00:00:00 Alfred HEALTH 350.1.13.10 it y of [place] 4.2.7.2.686 Adrien as BORIS?BLEA [id number] [address] OFFICE [facility] 2021-08-21 2021-08-21 Patient Doctor [facility] 1.2.840.114 [id number] Univers 00:00:00 00:00:00 Secure Msg Unassigned, HEALTH 350.1.13.10 ity of [place] 4.2.7.2.686 Adrien as BORIS?BLEA [id number] [address] OFFICE [facility] 2021-08-18 2021-08-18 Outpatient R CARMEN [facility] [id number] Univers 09:15:00 09:15:00 BETTY donnelly o [facility] 2021-08-18 2021-08-18 Outpatient Sofia MORALES [facility] [id number] Univers 09:15:00 09:15:00 BETTYSILVIA donnelly o [facility] 2021-08-18 2021-08-18 [facility] [id number] Univers 00:00:00 00:00:00 Blessing A HEALTH [id number] i ty of [place] [id number] Adrien as BORIS?BLEA [phone] [address] OFFICE [facility] 2021-08-17 2021-08-17 Outpatient R TOBI OLVERA [facility] [id number] Univers 13:00:00 13:00:00 ATANASOV, STRAHIL [facility] 2021-08-17 2021-08-17 [facility] [id number] Univers 13:00:00 13:00:00 TOBI OLVERA joie [facility] 2021-08-17 2021-08-17 [facility] [id number] Univers 13:00:00 13:00:00 TOBI OLVERA [facility] 2021-08-17 2021-08-17 Telephone [facility] [id number] Univers 00:00:00 00:00:00 Alfred HEALTH [id number] it y of [place] [id number] Adrien as BORIS?BLEA [id number] Ri susanna [address] OFFICE [facility] 2021-08-17 2021-08-17 Refill [facility] [id number] Univers 00:00:00 00:00:00 Blessing A HEALTH [id number] i ty [facility] [id number] Adrien as BORIS?BLEA [id number] [address] 2021-08-16 2021-08-16 [id number] Univers 12:00:00 12:00:00 KORY [facility] 2021-08-16 2021-08-16 [facility] [id number] Univers 12:00:00 12:00:00 KORY [facility] 2021-08-16 2021-08-16 [facility] [id number] Univers 12:00:00 12:00:00 [facility] 2021-08-16 2021-08-16 Telephone [facility] [id number] Univers 00:00:00 00:00:00 Soha [facility] [id number] i ty [place] [id number] [place] [id number] Ri dical NAL [address] [place] [address] 2021-08-14 2021-08-14 [facility] [facility] [id number] Univers 15:18:48 23:59:00 SINDY ONEILL joie [facility] 2021-08-14 2021-08-14 Outpatient R SINDY ONEILL [facility] [id number] Univers 15:18:48 23:59:00 SINDY ONEILL joie [facility] 2021-08-10 2021-08-10 Outpatient R JAMES [facility] [id number] Univers 15:00:00 15:45:32 SOHA joie [facility] 2021-08-10 2021-08-10 Office [facility] 1.2.359.931 [id number] Univers 15:00:00 15:45:32 Visit Soha CARLOS 350.1.13.10 i ty [facility] 4.2.7.2.686 [facility] s [facility] [id number] Ri dicelizabeth [address] 2021-08-10 2021-08-10 [facility] [id number] Univers 15:00:00 15:45:32 SOHA joie [facility] 2021-08-10 2021-08-10 Outpatient R JAMES [facility] [id number] Univers 15:00:00 15:45:32 SOHA joie [facility] 2021-08-10 2021-08-10 [facility] [id number] Univers 15:00:00 15:00:00 SOHA donnelly [facility] 2021-08-09 2021-08-09 Isabella Bush [facility] 1.2.840.114 [id number] Univers 00:00:00 00:00:00 Kay BARR 350.1.13.10 ity storm [place] [phone] [facility] AND JAIRO [address] [place] [address] [facility]IN[facility] 2021-08-09 2021-08-09 Isabella Bush [facility] 1.2.840.114 [id number] Univers 00:00:00 00:00:00 Kay Francis MULTISPEC 350.1.13.10 ity of [place] C[place] [id number] [facility] AND DORAN [address] [place] [facility] 2021-08-09 2021-08-09 Refill Doctor [facility] 1.2.840.114 [id number] Univers 00:00:00 00:00:00 Unassigned, PRIMARY 350.1.13.10 ity of [place] [id number] [address] 2021-08-04 2021-08-04 Patient Farzana, [facility] 1.2.840.114 [id number] Univers 00:00:00 00:00:00 Secure Msg Blessing A HEALTH 350.1.13.10 ity of [place] 4.2.7.2.686 Adrien as BORIS?BLEA [phone] [address] MEDICAL OFFICE BUILDING 2021-08-04 2021-08-04 Patient Farzana, [facility] 1.2.840.114 [id number] Univers 00:00:00 00:00:00 Secure Msg Blessing A HEALTH 350.1.13.10 ity of [place] 4.2.7.2.686 Adrien as BORIS?BLEA [phone] [address] MEDICAL OFFICE BUILDING 2021-08-02 2021-08-02 Office MELIZA Oneill 1.2.024.492 [id number] Univers 11:30:00 11:30:00 Visit Sindy Y HEALTH 350.1.13.10 i ty of CLINICS 4.2.7.2.[place] [id number] [facility] [address] [place] 2021-08-02 2021-08-02 Outpatient R SINDY ONEILL [facility] [id number] Univers 11:30:00 11:24:07 SINDY ONEILL of [facility] 2021-07-28 2021-07-28 Outpatient R SINDY ONEILL [facility] [id number] Univers 13:00:00 13:00:00 SINDY ONEILL cony [facility] 2021-07-26 2021-07-26 [facility] [id number] Univers 15:20:22 23:59:00 BLESSING donnelly [facility] 2021-07-26 2021-07-26 [facility] 1.2.840.114 [id number] Univers 15:00:00 23:59:00 Encounter Blessing CARLOS 350.1.13.10 ity [facility] 4.2.7.2.686 [facility] [id number] [facility] [address] 2021-07-21 2021-07-21 [facility] [id number] Univers 14:30:00 15:16:04 BLESSING donnelly [facility] 2021-07-19 2021-07-19 [facility] [id number] Univers 09:00:00 09:00:00 BLESSING donnelly [facility] 2021-07-14 2021-07-14 [facility] [id number] Univers 10:00:00 11:07:33 BLESSING donnelly [facility] 2021-07-14 2021-07-14 Orders Doctor FERRARA 1.2.840.114 [id number] Univers 00:00:00 00:00:00 Only Unassigned, JOSESITO 350.1.13.10 ity of [facility] 4.2.7.2.686 [facility] [id number] [facility] [address] 2021-07-12 2021-07-12 Outpatient [facility] [id number] Univers 10:00:00 10:00:00 JUVE donnelly [facility] 2021-02-12 2021-02-12 Outpatient PRIV PRIV [id number] 1-2 [facility] 00:00:00 00:00:00 [id number] Medica l 2021-02-12 2021-02-12 Outpatient PRIV PRIV [id number] 1-2 [facility] 00:00:00 00:00:00 [id number] Medica l 2020-12-06 2020-12-06 Outpatient PERLA BLOCK [id number] Perla 10:45:00 10:45:00 ELLIOT Garcia camille 2020-07-30 2020-07-30 Laboratory Lab, Adc Fam Pob I [facility] 1.2. 840.114 [id number] Univers 16:14:44 16:34:44 [facility] 350.1.13.10 ity [facility] 4.2.7.2.686 Adrien as Professio [phone] Ri dical [place] [address] [address] Office [address] One 2020-07-30 2020-07-30 [facility] [id number] Univers 16:00:00 16:00:00 [facility] 2020-07-28 2020-07-28 Patient Abdon [facility] 1.2.840.114 [id number] Univers 00:00:00 00:00:00 Outreach Joel PRIMARY 350.1.13.10 i Tate CARE 4.2.7.2.686 Maritza weston PAVILLION [id number] Ri dical [address] [place] [address] 2020-05-04 2020-05-04 Emergency ER OWO, TOKS [facility] [id number] [place] 16:03:00 18:07:00 -[id number] [facility] 2020-05-01 2020-05-01 Emergency ER RUPERT, [facility] [id number] [place] 14:12:00 18:16:00 BAO -[id number] [facility] 2020-04-20 2020-04-21 Emergency ER , [facility] [id number] [place] 22:53:00 00:07:00 WASIM -[id number] [facility] 2020-04-04 2020-04-04 [facility] 1.2.840.114 [id number] 00:00:00 00:00:00 Leandro Deras PRIMARY 350.1.13.10 CARE 4.2.7.2.686 PAVILLION [id number] [facility] 2020-04-04 2020-04-04 [facility] 1.2.840.114 [id number] Univers 00:00:00 00:00:00 Leandro Deras [facility].1.13.10 [facility] 4.2.7.2.686 Maritza GUPTA [phone] [address] 2020-03-18 2020-03-18 Outpatient FERGUSON_JO MEHOP MEHOP [address] [place] 00:00:00 00:00:00 HN 1106 [facility] 2020-03-14 2020-03-14 Outpatient FERGUSON_JO MEHOP MEHOP [address] [place] 04:45:00 04:45:00 HN 1102 [facility] 2020-02-29 2020-02-29 Outpatient R CARMEN, [facility] [id number] Univers 08:45:00 08:45:00 BETTY pickering [facility] 2020-02-26 2020-02-26 Emergency ER OWO, TOKS [facility] [id number] [place] 10:15:00 12:20:00 -[id number] [facility] 2020-02-26 2020-02-26 Outpatient FERGUSON_JO MEHOP MEHOP [address] [place] 09:48:00 09:48:00 HN 1016 [facility] 2020-02-25 2020-02-25 Outpatient FERGUSON_JO MEHOP MEHOP [address] [place] 01:22:00 01:22:00 HN 1015 [facility] 2020-02-19 2020-02-20 Emergency ER AVALOS, [facility] [id number] [place] 21:17:00 03:38:00 DOMINGO -[id number] [facility] 2020-02-17 2020-02-17 Outpatient BELIA GUILLERMO [facility] [id number] Univers 11:00:00 11:00:00 ity of [facility] 2020-02-10 2020-02-10 Emergency ER OWO, [facility] [id number] [place] 16:26:00 19:59:00 -[id number] [facility] 2019-12-31 2019-12-31 Emergency ER OWO, [facility] [id number] [place] 17:19:00 19:23:00 -[id number] [facility] 2019-11-26 2019-11-26 Emergency ER DUSTY, [facility] [id number] [place] 09:27:00 11:17:00 LORENE -[id number] [facility] 2019-11-20 2019-11-20 [facility] 1.2.195.400 [id number] 00:00:00 00:00:00 Leandro Deras PRIMARY 350.1.13.10 CARE 4.2.7.2.686 PAVILLION [id number] 389 2019-11-20 2019-11-[address] [facility] 1.2.641.935 [id number] [facility] 00:00:00 00:00:00 Leandro Deras PRIMARY 350.1.13.10 ity of [place].2.[place].2.[place] [id number] Ri dic[address] 2019-11-13 2019-11-[address] [facility] 1.2.955.064 [id number] 00:00:00 00:00:00 Leandro Deras PRIMARY 350.1.13.10 CARE 4.2.7.2.686 PAVILLION [id number] 389 2019-11-13 2019-11-13 [facility] 1.2.111.085 [id number] [facility] 00:00:00 00:00:00 Leandro Deras PRIMARY 350.1.13.10 ity of [place] [id number] Ri dic[address] 2019-10-28 2019-10-28 Outpatient R UNKNOWN, [facility] [id number] Univers 10:40:00 10:40:00 ATTENDING ity of [facility] 2019-09-29 2019-09-29 Patient Doctor [facility] 1.2.840.114 [id number] 00:00:00 00:00:00 Secure Msg Unassigned, PRIMARY 350.1.13.10 [place] CARE 4.2.7.2.686 PAVILLION [id number] 390 2019-09-29 2019-09-29 Patient Doctor [facility] 1.2.840.114 [id number] Univers 00:00:00 00:00:00 Secure Msg Unassigned, PRIMARY 350.1.13.10 ity of [place] C[place] 4.[place] [id number] [facility] [address] 2019-09-15 2019-09-15 Telephone Jesse [facility] 1.2.275.607 [id number] 00:00:00 00:00:00 Leandro Deras PRIMARY 350.1.13.10 CARE 4.2.7.2.686 PAVILLION [id number] 389 2019-09-15 2019-09-15 Telephone Jesse [facility] 1.2.170.733 [id number] Univers 00:00:00 00:00:00 Leandro Deras PRIMARY 350.1.13.10 ity of [place].2.[place] [id number] [address] 2019-09-10 2019-09-10 Paper Latcher [facility] 1.2.840.114 [id number] 12:34:34 12:44:34 Visit MULTISPEC 350.1.13.10 IAL[place] 4.2.7.2.686 CENTER [phone] [place] [address] [facility]ES [facility] 2019-09-10 2019-09-10 Paper Latcher [facility] 1.2.840.114 [id number] Univers 12:34:34 12:44:34 Visit Samir Conner MULTISPEC 350.1.13.10 ity of [place]2.[place].2.[place] [id number] [facility] AND [address] DIABETES CLINIC 2019-09-10 2019-09-10 Outpatient R SAMIR CONNRE [facility] [id number] Univers 12:40:00 12:40:00 ity of [facility] 2019-08-18 2019-08-18 Patient Jesse KSKATELYN 1.2.840.114 [id number] 00:00:00 00:00:00 Secure Msg Leandro Deras PRIMARY 350.1.13.10 CARE 4.2.7.2.686 PAVILLION [id number] 390 2019-08-18 2019-08-18 Patient Jesse, [facility] 1.2.840.114 [id number] Univers 00:00:00 00:00:00 Secure Msg Leandro Deras PRIMARY 350.1.13.10 ity of [place] 4.2.7.2.[place] [id number] Ri dical [address] 2019-08-17 2019-08-17 Patient Doctor [facility] 1.2.840.114 [id number] 00:00:00 00:00:00 Secure Msg Unassigned, PRIMARY 350.1.13.10 [place] CARE 4.2.7.2.686 PAVILLION [id number] 389 2019-08-17 2019-08-17 Patient Doctor [facility] 1.2.840.114 [id number] Univers 00:00:00 00:00:00 Secure Msg Unassigned, PRIMARY 350.1.13.10 ity of [place] CARE 4.2.7.2.[place] [id number] Ri dical [address] 2019-08-14 2019-08-14 Outpatient R UNKNOWN, [facility] [id number] Univers 12:10:00 12:10:00 ATTENDING ity of [facility] 2019-08-14 2019-08-14 Paper Latcher Pcp-Lab [facility] 1.2.840.114 [id number] 11:02:02 11:12:02 Visit PRIMARY 350.1.13.10 CARE 4.2.7.2.686 PAVILLION [id number] 366 2019-08-14 2019-08-14 Paper Latcher Pcp-Lab [facility] 1.2.840.114 [id number] Univers 11:02:02 11:12:02 Visit Unknown, Attending PRIMARY 350.1.13.10 ity of [place], Israa CARE 4.2.7.2.686 [place] PAVILLION [id number] [facility] [address] 2019-08-12 2019-08-12 Telemedici Pb, [facility] 1.2.840.114 [id number] 14:32:03 15:02:03 ne Visit Salvatore PRIMARY 350.1.13.10 CARE 4.2.7.2.686 PAVILLION [id number] 390 2019-08-12 2019-08-12 Telemedici Salvatore Ambriz [facility] 1.2.840 .114 [id number] Univers 14:32:03 15:02:03 ne Visit Unknown, Attending PRIMARY 350.1.13.1 0 ity of [place] 4.2.7.2.[place] [id number] [facility] [address] 2019-08-12 2019-08-12 Outpatient R UNKNOWN, [facility] [id number] Univers 14:50:00 14:50:00 ATTENDING ity of [facility] 2019-08-12 2019-08-[address] [facility] 1.2.554.345 [id number] 00:00:00 00:00:00 Leandro Deras PRIMARY 350.1.13.10 CARE 4.2.7.2.686 PAVILLION [id number] 389 2019-08-12 2019-08-12 Telephone [facility] 1.2.362.694 [id number] Univers 00:00:00 00:00:00 Leandro Deras PRIMARY 350.1.13.10 ity of C[place] 4.2.[place].2.[place] [id number] [facility] [address] 2019-08-07 2019-08-10 Telemedici [facility] 1.2.840.114 [id number] 08:31:45 15:00:40 ne Visit Kay DARBYPEC 350.1.13.10 IAL[place] 4.2.7.2.686 [place] [id number] AND JAIRO [facility] 2019-08-07 2019-08-10 Telemedici [facility] 1.2.840.114 [id number] [facility] 08:31:45 15:00:40 ne Visit Kay DARBYPEC 350.1.13.10 ity of [place]2.[place].2.[place] CENTER [id number] [facility] AND [address] DIABETES CLINIC 2019-08-07 2019-08-07 Outpatient R IHSAN [facility] [id number] Univers 10:30:00 10:30:00 KAY pickering [facility] 2019-08-04 2019-08-04 Outpatient R ELIZABETH [facility] [id number] Univers 11:00:00 11:00:00 LIU ity of [place] [facility] 2019-08-04 2019-08-04 Telemedici Johan Alexander [facility]ERS[facility] 1.2.84 0.114 [id number] Univers 07:35:13 08:05:13 ne Visit Trell Villagomez Y HEALTH 350.1.13 .10 ity of [place] Milo Moss [facility] 4.2.7.2.68 6 [place] [phone] [place] [address] Branch 2019-08-04 2019-08-04 Telephone BhaveshangieMAYTE herrIT 1.2.840.114 [id number] Univers 00:00:00 00:00:00 Johan Y HEALTH 350.1.13.10 i ty of CLINICS 4.2.7.2.[place] [id number] [place] [address] Branch 2019-08-04 2019-08-04 Orders Doctor ALEM 1.2.840.114 [id number] Univers 00:00:00 00:00:00 Only Unassigned, JOSESITO 350.1.13.10 ity of [place] [facility] 4.2.7.2.686 Adrien as [id number] [facility] [address] 2019-08-03 2019-08-03 Refill Alvarez, [facility] 1.2.840.114 [id number] Univers 00:00:00 00:00:00 Mostafa MULTISPEC 350.1.13.10 ity of [place] MARI 4.2.7.2.686 [facility] [phone] [facility] AND [address] DIABETES CLINIC 2019-08-03 2019-08-03 Refill [facility] 1.2.840.114 [id number] Univers 00:00:00 00:00:00 Mostafa MULTISPEC 350.1.13.10 ity of [place] MARI 4.2.7.2.686 [facility] [id number] [facility] AND [address] DIABETES CLINIC 2019-08-03 2019-08-03 Telephone [facility] 1.2.931.120 [id number] Univers 00:00:00 00:00:00 Leandro Deras PRIMARY 350.1.13.10 ity of CARE 4.2.7.2.686 [place] [id number] Ri dical [address] 2019-08-03 2019-08-03 Telephone [facility] 1.2.840.114 [id number] Univers 00:00:00 00:00:00 Kay Francis MULTISPEC 350.1.13.10 ity of [place]2.[place].2.[place] [id number] [facility] AND JAIRO [address] DIABETES CLINIC 2019-07-20 2019-07-20 Emergency ER MERRICK, [facility] [id number] [place] 20:16:00 21:34:00 SHANNEN -[id number] [facility] 2019-06-23 2019-06-23 Emergency ER JAZMIN, [facility] [id number] [place] 15:06:00 17:30:00 ALYSSA -[id number] [facility] 2019-06-05 2019-06-05 Emergency ER RUPERT, [facility] [id number] [place] 16:39:00 19:48:00 BAO -[id number] [facility] 2019-06-05 2019-06-05 Telephone Puthenparam UNIVERSIT 1.2.840.11 [id number] Univers 00:00:00 00:00:00 henok, Juan Y 350.1.13.10 ity of NATIONAL 4.2.7.2.686 Adrien as BANK [phone] [facility] BLDG. [address] 2019-05-19 2019-05-19 Clinic Puthenparam [facility]IVERS[facility] 1.2.840.114 [id number] Univers 00:00:00 00:00:00 Assessment henok, Juan Y 350.1.13.10 ity of [place]ATIONAL 4.2.7.2.686 Adrien as [phone] [facility] [address] 2019-03-05 2019-03-05 Outpatient Young_J MMG MMG [id number] [place] 03:44:00 03:44:00 024 Medical Group 2019-03-01 2019-03-01 Emergency ER TRELL, [facility] [id number] [place] 15:15:00 18:55:00 PATI -[id number] [facility] 2019-01-26 2019-01-26 Telephone Jesse [facility] 1.2.319.561 [id number] Univers 00:00:00 00:00:00 Leandro Deras PRIMARY 350.1.13.10 ity of C[place] 4.2.7.2.[place] [id number] Ri dical [address] 2019-01-21 2019-01-21 Emergency ER RUPERT, [facility] [id number] [place] 17:43:00 20:38:00 BAO -[id number] [facility] 2018-12-30 2018-12-30 Office Elver Cyr [facility] 1.2 .840.114 [id number] Univers 14:33:52 16:12:24 Visit Unknown, Attending PRIMARY 350.1.13.10 ity of Belia Metz [facility] 4.2.7.2.686 [place] PAVILLION 328.7925846 Ri dical [address] 2018-12-12 2018-12-12 Orders Doctor ALEM 1.2.840.114 [id number] Univers 00:00:00 00:00:00 Only Unassigned, JOSESITO 350.1.13.10 ity of [place] [facility] 4.2.7.2.686 Adrien as [id number] [facility] [address] 2018-12-05 2018-12-05 Transition Blaine Longo 1.2.840.114 [id number] Univers 00:00:00 00:00:00 of Care Nicky Hicks 350.1.13.10 it y of [place].2.7.2.[place] [id number] [facility] [address] 2018-12-02 2018-12-04 Hospital Mary Howell 1.2.840.114 [id number] Univers 00:29:00 19:45:00 Encounter Mikey Marquez 35 0.1.13.10 ity of Emiliano Cheung [facility] 4.2.7.2.686 [place] [phone] [facility] 0[address] 2018-12-04 2018-12-04 Telephone Alvarez [facility] 1.2.840.114 [id number] Univers 00:00:00 00:00:00 Rust Mitomics 350.1.13.10 it y of [place] Rodriguez [place] 4.2.7.2.686 [facility] [phone] [facility] Primary & 0[address] Specialty Care 2018-12-02 2018-12-02 Orders Doctor ALEM 1.2.840.114 [id number] Univers 00:00:00 00:00:00 Only Unassigned, JOSESITO 350.1.13.10 ity of [place] [facility] 4.2.7.2.686 [facility] [id number] [facility] 00[address] 2018-11-29 2018-12-01 Inpatient ER Elina, [facility] MED [id number] [address] [place] 19:48:00 23:00:00 Sean -[id number] [facility] 2018-11-28 2018-11-29 Emergency ER MERRICK [facility] [id number] [place] 20:53:00 01:14:00 SHANNEN -[id number] [facility] 2018-04-03 2018-04-03 Emergency ER JAZMIN [facility] [id number] [place] 19:12:00 21:48:00 ALYSSA -[id number] [facility] 2017-07-31 2017-07-31 Emergency E MCSETX MED [id number] Medical 19:16:00 19:16:00 [facility] 2017-05-30 2017-05-30 AURELIA [facility] 3 [id number] [place] 13:00:00 13:00:00 t; Jinny FONTAINE Ph greg Reid M.D. 2017-04-23 2017-04-23 AURELIA Knutson UTP [id number] [place] 09:15:00 09:15:00 t; Jinny FONTAINE Ph greg Reid M.D. 2013-08-09 2013-08-09 Emergency ER BA, RICHARD [facility] [id number] [place] 19:09:00 22:27:00 -[id number] [facility] 2013-05-11 2013-05-11 Emergency ER MDEINA, [facility] [id number] 61 [place] 02:30:00 05:46:00 WAS -[id number] [facility] 2013-04-18 2013-04-18 Emergency ER UGORJI, [facility] [id number] [address] [place] 01:08:00 04:45:00 CLEDARRICK -[id number] [facility] 2013-03-26 2013-03-26 Outpatient EL D'ANN, [facility] [id number] [place] 09:38:00 09:38:00 MATT -[id number] [facility] 2013-03-09 2013-03-09 Emergency ER DONOVAN, [facility] [id number] [place] 19:03:00 20:05:00 MIKAELA -[id number] [facility] 2012-12-04 2012-12-06 Inpatient ER D'ANN, [facility] [id number] [place] 21:36:00 14:11:00 [facility] -[id number] [facility] 2012-12-01 2012-12-02 Emergency ER BA, RICHARD [facility] [id number] [place] 22:29:00 01:22:00 -[id number] [facility] 2012-11-27 2012-11-27 Outpatient UR TARSHA, [facility] [id number] [place] 10:49:00 10:49:00 WALDO -[id number] [facility] 2012-11-18 2012-11-18 Emergency ER UGORJI, [facility] [id number] [address] [place] 12:50:00 15:39:00 [id number] 2012-08-01 2012-08-01 Emergency ER UGORJI, [facility] [id number] [address] [place] 17:26:00 20:49:00 [facility][id number] [facility] 2012-07-19 2012-07-19 Emergency ER JERSEY, [facility] [id number] [place] 14:19:00 15:44:00 [facility] -[id number] [facility] 2012-07-10 2012-07-10 Outpatient EL Franko, [facility] [id number] [place] 07:04:00 07:04:00 Talat -[id number] [facility] 2012-06-06 2012-06-06 Outpatient EL D'ANN, [facility] [id number] [place] 13:17:00 13:17:00 MATT -[id number] [facility] 2012-06-05 2012-06-06 Emergency ER UGORJI, [facility] [id number] [place] 20:38:00 02:50:00 CLEDARRICK -[id number] [facility] 2012-05-28 2012-06-01 Inpatient EL D'ANN, [facility] [id number] [place] 17:00:00 10:27:00 MATT -[id number] [facility] 2012-03-09 2012-03-09 Emergency ER Foley, [facility] [id number] [place] 21:25:00 22:48:00 Driss -[id number] [facility] 2012-02-29 2012-02-29 Outpatient EL D'ANN, [facility] [id number] [place] 15:16:00 15:16:00 MATT -[id number] [facility] 2012-01-12 2012-01-12 Emergency ER UGORJI, [facility] [id number] [place] 19:42:00 23:53:00 JUMANA -[id number] [facility] 2011-08-14 2011-08-14 Outpatient EL D'ANN, [facility] [id number] [place] 11:58:00 11:58:00 MATT -[id number] [facility] 2011-04-26 2011-04-26 Outpatient EL D'ANN, [facility] [id number] [place] 14:29:00 14:29:00 MATT -[id number] [facility] 2010-10-18 2010-10-19 Emergency ER UGORJI, [facility] [id number] [place] 20:52:00 01:50:00 JUMANA -[id number] [facility] 2010-10-13 2010-10-[address] [facility] [id number] [place] 18:28:00 20:15:00 [id number] [facility] 2010-09-12 2010-09-14 Inpatient ELI RAMOS [facility] [id number] [place] 12:12:00 13:45:00 [id number] [facility] Results Test Description Test Time Test Comments Results Result Comments Source POC-Glucose meter 2022-11-25 08:26:55 Test Item Value Reference Range Interpretation Comme nts POC-Glucose Meter (test code = 141 mg/dL 70-110 H : TESTED AT [facility] [address] [facility] 1538) [facility], 770 30: Retail Specialist/Techni olesya ID = [id number] for MiriCinda medina Lab Interpretation (test code = Abnormal 45075-0) [facility] [id number] 08:26:55 Test Item Value Reference Range Interpretation Comments POC-Glucose Meter (test 141 mg/dL 70-110 H : TE STED AT [facility] code = 1538) [address] [place] [address], 770 30: Retail Specialist/Techni olesya ID = [id number] for MiriCinda medina Lab Interpretation (test Abnormal code = 81510-4) [place] [facility]-GLUCOSE [id number] 08:26:55 Test Item Value Reference Range Interpretation Comments POC-GLUCOSE METER 141 mg/dL 70-110 H : TESTED A T [facility] 6720 (BEAKER) (test code = BERTNE R [facility], 1538) [address]: Retail Specialist/Techni olesya ID = [id number] for Miri medina Cinda [id number] 06:43:25 Test Item Value Reference Range Interpretation Comments MAGNESIUM (BEAKER) (test code = 2.2 mg/dL 1.6-2.6 627) Retail Specialist ID - PDYULANCZAFQQKP6661-51-71 06:43:25 Test Item Value Reference Range Interpretation Comments PHOSPHORUS (BEAKER) (test code = 2.9 mg/dL 2.3-4.7 604) Retail Specialist ID - MARCOBASIC METABOLIC [id number] 06:43:24 Test Item Value Reference Range Interpretation [...] G3b Moderately to s everely 30-44 G4 Sever ly decreased 15-29 G5 Kidney failure <15Repo rted eGFR is based on the CKD-EPI 2020 equation t hat does not use a race coefficientEsti mated GFR is not as accur ate as Creatinine Velma augustine in predicting glom erular filtration rate . Estimated GFR is not appl icable for dialysis patien ts Retail Specialist ID - MARCOCBC W/PLT COUNT & AUTO [id number] 06:01:36 Test Item Value Reference Range Interpretation [...] PERCENT (BEAKER) (test code = 2801) POCT-GLUCOSE [id number] 22:23:26 Test Item Value Reference Range Interpretation Comments POC-GLUCOSE METER 186 mg/dL 70-110 H : TESTED A T [facility] 6720 (BEAKER) (test code = LALO DIOP [facility], 1538) [address]: Retail Specialist/Techni olesya ID = [id number] for Nicole Esquivel HIGH SENSITIVITY TROPONIN [id number] 19:54:32 Test Item Value Reference Range Interpretation Comments HIGH SENSITIVITY TROPONIN I (test < pg/ml <=35 code = 9011158) The MOVIE OPERATOR STAT High Sensitivity Troponin-I results should be used in conjunction with other diagnostic information such as ECG, clinical observations and information, and patient symptoms to aid inthe diagnosis of NH.BASIC METABOLIC [id number] 19:44:55 Test Item Value Reference Range Interpretation [...] not appl icable for dialysis patien ts [id number] 19:44:55 Test Item Value Reference Range Interpretation Comments MAGNESIUM (BEAKER) (test code = 2.1 mg/dL 1.6-2.6 627) [id number] 19:44:55 Test Item Value Reference Range Interpretation Comments PHOSPHORUS (BEAKER) (test code = 2.0 mg/dL 2.3-4.7 L 604) CBC W/PLT COUNT & AUTO [id number] 19:27:50 Test Item Value Reference Range Interpretation [...] code = 2801) CT BRAIN WITHOUT IV [id number] 18:49:08 [facility] CENTERName: SUDHEER JUAREZ : 1970 [...] Signed By: Sary Maradiaga11/24/2022 18:51 CDTWorkstation Name: [id number]- GLUCOSE [id number] 17:16:25 Test Item Value Reference Range Interpretation Comments POC-GLUCOSE METER 234 mg/dL 70-110 H : TESTED A T [facility] 6720 (BEAKER) (test code = [facility] Sofia [facility], 1538) [address]: Retail Specialist/Techni olesya ID = [id number] for Jean-Pierre Duff POCT-GLUCOSE [id number] 12:48:27 Test Item Value Reference Range Interpretation Comments POC-GLUCOSE METER 153 mg/dL 70-110 H : TESTED A T [facility] 6720 (BEAKER) (test code = [facility] Sofia [facility], 1538) [address]: Retail Specialist/Techni olesya ID = [id number] for Mey Dos Santos POCT-GLUCOSE [id number] 08:34:06 Test Item Value Reference Range Interpretation Comments POC-GLUCOSE METER 199 mg/dL 70-110 H : TESTED A T [facility] 6720 (BEAKER) (test code = [facility] Sofia [facility], 153) [address]: Retail Specialist/Techni olesya ID = [id number] for Mey Dos Santos CBC W/PLT COUNT & AUTO [id number] 05:53:53 Test Item Value Reference Range Interpretation [...] (BEAKER) (test code = 2801) BASIC METABOLIC [id number] 05:46:34 Test Item Value Reference Range Interpretation [...] 30-44 G4 Severl y decreased 15-29 G5 Kidne y failure <15Reported eGF R is based on the CKD-EPI 2020 equation that d oes not use a race coefficientEsti mated GFR is not as accur ate as Creatinine Velma augustine in predicting glom erular filtration rate . Estimated GFR is not appl icable for dialysis patien ts [id number] 05:46:34 Test Item Value Reference Range Interpretation Comments MAGNESIUM (BEAKER) (test code = 2.1 mg/dL 1.6-2.6 627) [id number] 05:46:34 Test Item Value Reference Range Interpretation Comments PHOSPHORUS (BEAKER) (test code = 2.6 mg/dL 2.3-4.7 604) POCT-GLUCOSE [id number] 22:01:37 Test Item Value Reference Range Interpretation Comments POC-GLUCOSE METER 169 mg/dL 70-110 H : TESTED A T [facility] 6720 (BEAKER) (test code = [facility], 153) [address]: Retail Specialist/Techni olesya ID = [id number] for Nicole Esquivel POCT-GLUCOSE [id number] 18:12:40 Test Item Value Reference Range Interpretation Comments POC-GLUCOSE METER 231 mg/dL 70-110 H : TESTED A T [facility] 6720 (BEAKER) (test code = [facility], 1538) [address]: Retail Specialist/Techni olesya ID = [id number] for Jean-Pierre Duff POCT-GLUCOSE [id number] 13:10:52 Test Item Value Reference Range Interpretation Comments POC-GLUCOSE METER 183 mg/dL 70-110 H : TESTED A T [facility] 6720 (BEAKER) (test code = [facility], 1538) [address]: Retail Specialist/Techni olesya ID = [id number] for Melissa arthurgenovevaMey POCT-GLUCOSE [id number] 08:23:00 Test Item Value Reference Range Interpretation Comments POC-GLUCOSE METER 163 mg/dL 70-110 H : TESTED A T [facility] 6720 (BEAKER) (test code = [facility], 1538) [address]: Retail Specialist/Techni olesya ID = [id number] for Mey Dos Santos [id number] 06:47:03 Test Item Value Reference Range Interpretation Comments MAGNESIUM (BEAKER) (test code = 1.9 mg/dL 1.6-2.6 627) Retail Specialist ID - ADMINOperator ID - [id number] 05:46:13 Test Item Value Reference Range Interpretation Comments PHOSPHORUS (BEAKER) (test code = 2.7 mg/dL 2.3-4.7 604) Retail Specialist ID - ADMINCBC W/PLT COUNT & AUTO [id number] 04:58:21 Test Item Value Reference Range Interpretation [...] PERCENT (BEAKER) (test code = 2801) POCT-GLUCOSE [id number] 21:08:50 Test Item Value Reference Range Interpretation Comments POC-GLUCOSE METER 170 mg/dL 70-110 H : TESTED A T [facility] 6720 (BEAKER) (test code [facility], = 1538) [address]: Retail Specialist/Techni olesya ID = [id number] for Thanh Ruiz POCT-GLUCOSE [id number] 17:45:46 Test Item Value Reference Range Interpretation Comments POC-GLUCOSE METER 235 mg/dL 70-110 H : TESTED A T [facility] 6720 (BEAKER) (test code = [facility] Sofia [facility], 1538) [address]: Retail Specialist/Techni olesya ID = [id number] for MAUREEN RAMIREZ [id number] 14:58:42 Test Item Value Reference Range Interpretation Comments RPR SCREEN (AKER) (test code = Nonreactive Nonreactive 420) CT BRAIN WITHOUT IV [id number] 12:27:04 [facility] CENTERName: SUDHEER JUAREZ : 1970 [...] Signed By: Sary Maradiaga11/22/2022 12:29 CDTWorkstation Name: [id number] METER 2022-11-22 11:32:35 Test Item Value Reference Range Interpretation Comments POC-GLUCOSE METER 158 mg/dL 70-110 H : TESTED A T [facility] 6720 ([employer]) (test code = [facility], 1538) [address]: Retail Specialist/Techni olesya ID = [id number] for Julio César Mae HEMOGLOBIN [id number] 11:17:17 Test Item Value Reference Range Interpretation Comments HEMOGLOBIN A1C 8.1 % See_Comment H [Automated m essage] ELECTROPHORESIS ([employer]) The system which (test code = 3811) generated this result transmitted ref erence range: <=5.6%. The reference range was not used to int erpret this result as normal/abnormal . "The A1c is measured using a NGS-certified method. HbA1c value equal to or greater than 6.5% as thediagnosis cutoff for diabetes. An HbA1c value of 5.7- 6.4% indicates increased risk for diabetes (prediabetes)."Retail Specialist ID - ADMPOCT- GLUCOSE [id number] 08:13:06 Test Item Value Reference Range Interpretation Comments POC-GLUCOSE METER 143 mg/dL 70-110 H : TESTED A T [facility] 6720 (BEAKER) (test code = LALO Sofia [facility], 1538) [address]: Retail Specialist/Techni olesya ID = [id number] for ALEM HARRIS CBC W/PLT COUNT & AUTO [id number] 04:17:53 Test Item Value Reference Range Interpretation [...] GRANULOCYTES-RELATIVE PERCENT (BEAKER) (test code = 2801) [id number] 04:06:03 Test Item Value Reference Range Interpretation Comments MAGNESIUM (BEAKER) (test code = 1.6 mg/dL 1.6-2.6 627) Retail Specialist ID - VGCHEZDGHONE0452-57-17 04:06:03 Test Item Value Reference Range Interpretation Comments PHOSPHORUS (BEAKER) (test code = 3.7 mg/dL 2.3-4.7 604) Retail Specialist ID - MMBASIC METABOLIC [id number] 04:06:02 Test Item Value Reference Range Interpretation [...] high >=90 G2 Mildly decreased 60-89 G3a Mild ly to moderately 45-5 9 G3b Moderately to [...] not appl icable for dialysis patien ts Retail Specialist ID - MMCT BRAIN WITHOUT IV [id number] 01:51:30 [facility] CENTERName: SUDHEER JUAREZ : 1970 [...] Signed By: Ravinder Rojo11/22/2022 01:54 CDTWorkstation Name: [id number] [id number] 18:45:00 Test Item Value Reference Range Interpretation Comments VITAMIN B12 (BEAKER) (test code = 383 pg/mL 213-816 774) Retail Specialist ID - BSHIV-1 ANTIGEN WITH HIV-1/2 [id number] 17:48:38 Test Item Value Reference Range Interpretation Comments HIV-1 ANTIGEN WITH HIV 1\\T\\2 Nonreactive Nonreactive ANTIBODY (2) (BEAKER) (test code = 2586) Retail Specialist ID - ADMINTSH/FREE T4 IF [id number] 17:48:37 Test Item Value Reference Range Interpretation Comments THYROID STIMULATING HORMONE 1.693 uIU/mL 0.350-4.940 (BEAKER) (test code = 772) Retail Specialist ID - ADMINHIGH SENSITIVITY TROPONIN [id number] 17:34:01 Test Item Value Reference Range Interpretation Comments HIGH SENSITIVITY TROPONIN I (test < pg/ml <=35 code = 1221425) Retail Specialist ID - ADMINThe MOVIE OPERATOR STAT High Sensitivity Troponin-I results should be used in conjunction with other diagnostic information such as ECG, clinical observations and information, and patientsymptoms to aid in the diagnosis of NH. CBC W/PLT COUNT & AUTO [id number] 17:04:31 Test Item Value Reference Range Interpretation [...] PERCENT (BEAKER) (test code = 2801) LIPID [id number] 16:20:15 Test Item Value Reference Range Interpretation [...] 31 U/L 29-200 code = 380) C-REACTIVE [id number] 16:20:15 Test Item Value Reference Range Interpretation Comments C-REACTIVE PROTEIN (BEAKER) (test 1.08 mg/dL 0.00-0.50 H code = 676) COMPREHENSIVE METABOLIC [id number] 16:20:14 Test Item Value Reference Range Interpretation [...] eGF R is based on the CKD-EPI 202 equation that d oes not use a race coefficientEsti mated GFR is not as accur ate as Creatinine Velma davide in predicting glom erular filtration rate . Estimated GFR is not appl icable for dialysis patien ts [id number] 16:20:14 Test Item Value Reference Range Interpretation Comments MAGNESIUM (BEAKER) (test code = 1.6 mg/dL 1.6-2.6 627) [id number] 16:20:14 Test Item Value Reference Range Interpretation Comments PHOSPHORUS (BEAKER) (test code = 3.3 mg/dL 2.3-4.7 604) [id number] 15:37:23 Test Item Value Reference Range Interpretation Comments PARTIAL THROMBOPLASTIN TIME 35.5 seconds 22.5-36.0 (BEAKER) (test code = 760) PROTHROMBIN TIME/[id number] 15:36:45 Test Item Value Reference Range Interpretation Comments PROTIME (BEAKER) (test code = 15.3 seconds 11.9-14.2 H 759) INR (BEAKER) (test code = 370) 1.29 <=5.90 RECOMMENDED COUMADIN/WARFARIN INR THERAPY RANGESSTANDARD DOSE: 2.0 - 3.0 Includes: PROPHYLAXIS for venous thrombosis, systemic embolization; TREATMENT for venous thrombosis and/or pulmonary embolus.HIGH RISK: Target INR is 2.5-3.5 for patients with mechanical heart valves.POCT-GLUCOSE [id number] 14:53:41 Test Item Value Reference Range Interpretation Comments POC-GLUCOSE METER 183 mg/dL 70-110 H : TESTED A T [facility] 6720 (BEJN) (test code = LALO DIOP [place], 1538) [address]: Retail Specialist/Techni olesya ID = [id number] for Wendy Urena BASIC METABOLIC PANEL (NA, K, CL, CO2, GLUCOSE, BUN, CREATININE, CA)2022-10-28 16:23:16 Test Item Value Reference Range Interpretation Comments NA (test code = 136 mmol/L 135-145 2072950475) K (test code = 4.0 mmol/L 3.5-5.0 3354282893) CL (test code = 101 mmol/L 98-108 9821735789) CO2 TOTAL (test code = 23 mmol/L 23-31 0437816096) AGAP (test code = 12 2-16 9294798499) BUN (test code = 9 mg/dL 7-23 3333917290) GLUCOSE (test code = 286 mg/dL 70-110 H 8546619637) CREATININE (test code = 0.68 mg/dL 0.60-1.25 4273331600) CALCIUM (test code = 8.3 mg/dL 8.6-10.6 L 2411501273) eGFR (test code = 122.5 mL/min/1.73m2 8257510232) SHAWN (test code = SHAWN) Association of [...] tests). Lab Interpretation Abnormal (test code = 10821-7) [facility] WITH [id number] 16:10:58 Test Item Value Reference Range Interpretation [...] RDW-SD (test code = 42.8 fL 38.5-51.6 16237-4) RDW-CV (test code = 13.2 % 12.1-15.4 788-0) PLT (test code = 156 See_Comment [Automated 777-3) message] The sy stem which generated this result transmitted reference range : 150 - 328 10*3/ ?L. The reference r bhavna was not used to interpret this result as normal/abnormal . MPV (test code = 13.0 fL 9.8-13.0 59270-9) NRBC/100 WBC (test 0.0 See_Comment [Automat ed code = 1641751923) message] The system which generated this result transmitted reference range : 0.0 - 10.0 /100 WBCs. The refer ence range was not u sed to interpret th is result as normal/abnormal . NRBC x10^3 (test code See_Comment [Auto mated = 9920984987) message] The s ystem which generated this result transmitted reference range : 10*3/?L. The reference range was not used to interpret this result as normal/abnormal . GRAN MAT (NEUT) % 72.3 % (test code = 770-8) IMM GRAN % (test code 2.00 % = 9913950043) LYMPH % (test code = 15.0 % 736-9) MONO % (test code = 9.1 % 5905-5) EOS % (test code = 1.1 % 713-8) BASO % (test code = 0.5 % 706-2) GRAN MAT x10^3(ANC) 9.42 10*3/uL 1.99-6.95 H (test code = 6227968477) IMM GRAN x10^3 (test 0.26 10*3/uL 0.00-0.06 H code = 8758341576) LYMPH x10^3 (test code 1.96 10*3/uL 1.09-3.23 = 731-0) MONO x10^3 (test code 1.19 10*3/uL 0.36-1.02 H = 742-7) EOS x10^3 (test code = 0.14 10*3/uL 0.06-0.53 711-2) BASO x10^3 (test code 0.06 10*3/uL 0.01-0.09 = 704-7) Lab Interpretation Abnormal (test code = 50736-3) [facility] Test Item Value Reference Range Interpretation Comments GLUBED (test code = GLUBED) 155 mg/dL 70-110 H BASIC METABOLIC [id number] 06:26:00 Test Item Value Reference Range Interpretation [...] CA) 8.0 mg/dl 8.0-10.5 N CBC W/AUTO [id number] 06:04:00 Test Item Value Reference Range Interpretation [...] code = BA#) 0.1 K/mm3 0.0-0.2 N [id number] 05:50:00 Test Item Value Reference Range Interpretation Comments GLUBED (test code = GLUBED) 163 mg/dL 70-110 H [id number] 00:32:00 Test Item Value Reference Range Interpretation Comments GLUBED (test code = GLUBED) 216 mg/dL 70-110 H [id number] 05:57:00 Test Item Value Reference Range Interpretation Comments GLUBED (test code = GLUBED) 147 mg/dL 70-110 H [id number] 00:14:00 Test Item Value Reference Range Interpretation Comments GLUBED (test code = GLUBED) 169 mg/dL 70-110 H [id number] 16:32:00 Test Item Value Reference Range Interpretation Comments GLUBED (test code = GLUBED) 132 mg/dL 70-110 H [id number] 11:51:00 Test Item Value Reference Range Interpretation Comments GLUBED (test code = GLUBED) 170 mg/dL 70-110 H CARDIAC ENZYMES [id number] 08:23:00 Test Item Value Reference Range Interpretation Comments CREATINE KINASE (CK) 28 Units/L 39-308 L (test code = CK) TROPONIN-I (test code <0.02 NG/ML 0.00-0.06 N REFERE NCE RANGE = TROPI) TROPONIN I HEAL THY INDIVIDUALS: <0 .06 ng/mL R/O ISCHE AKHIL: 0.07 - 0.60 ng/ mL CUT-OFF RANGE F OR AMI: 0.60 - 1.5 ng/mL - XR CHEST 1 [id number] 06:38:00 FAX: Sky Valente MD [phone] [place]: St: [facility] FAX: Chilango Dobbs [phone] ------ Name: SUDHEER JUAREZ [facility] : 1970 Age/S: 47/M [address] [facility] Unit #: [id number] Loc: [address] Phys: Chilango Vigil [address] Acct: [id number] Dis Date: Status: ADM IN PHONE #: [phone] Exam Date: 08/12/2018 0636 FAX #: [phone] Reason: CHEST PAIN EXAMS: CPT CODE: [id number] XR CHEST 1 V 05663 Location: U19. CHEST, FRONTAL VIEW HISTORY: CHEST [...] 1 Signed Report FAX: Sky Valente MD [phone] [place]: St: [facility] FAX: Chilango Dobbs [phone] Name: SUDHEER JUAREZ [facility] : 1970 Age/S: 47/M [address] [employer] Unit #: [id number] Loc: [address] [place], [place] Phys: Chilango Vigil [address] Acct: [id number] Dis Date: Status: ADM IN PHONE #: [phone] Date: 08/12/2018 0636 FAX #: [phone] Reason: CHEST PAIN EXAMS: CPT CODE: [id number] XR CHEST 1 V 91871 (Continued) Orig Print D/T: S: 08/12/2018 (0641) PAGE 2 Signed [id number] 05:48:00 Test Item Value Reference Range Interpretation Comments GLUBED (test code = GLUBED) 155 mg/dL 70-110 H [id number] 04:15:00 Test Item Value Reference Range Interpretation Comments GLUBED (test code = GLUBED) 195 mg/dL 70-110 H [id number] 16:15:00 Test Item Value Reference Range Interpretation Comments GLUBED (test code = GLUBED) 210 mg/dL 70-110 H URINALYSIS [id number] 13:21:00 Test Item Value Reference Range Interpretation [...] = MUCU) TRACE DRUGS OF ABUSE SCREEN [id number] 13:20:00 Test Item Value Reference Interpretation Comments [...] = [place]) concentrati on: 300 ng/mL URINALYSIS [id number] 13:17:00 Test Item Value Reference Range Interpretation [...] UA BACTERIA (test code = NONE BACU) [id number] 11:54:00 Test Item Value Reference Range Interpretation Comments HGBA1C% (test code = HGBA1C%) 5.7 %A1C 4.8-6.0 N ESTIMATED AVERAGE GLUCOSE (test 117 MG/DL code = EAG) [id number] 11:19:00 Test Item Value Reference Range Interpretation Comments GLUBED (test code = GLUBED) 225 mg/dL 70-110 H COMPREHENSIVE METABOLIC [id number] 07:52:00 Test Item Value Reference Range Interpretation [...] 50.0-136.0 N code = ALKP) Comments to Slip Cover Operator: Patient is currently in the ED waiting [...] LDL) 128 mg/dl 70-130 N Comments to Slip Cover Operator: Patient is currently in the ED waiting on a bed [id number] 07:52:00 Test Item Value Reference Range Interpretation Comments MAGNESIUM (test code = MAG) 1.9 mg/dl 1.8-2.4 N Comments to Slip Cover Operator: Patient is currently in the ED waiting on a bedCBC W/AUTO [id number] 07:31:00 Test Item Value Reference Range Interpretation [...] BA#) 0.0 K/mm3 0.0-0.2 N Comments to Slip Cover Operator: Patient is currently in the ED waiting on a bedGLUBED 2018-08-11 05:55:00 Test Item Value Reference Range Interpretation Comments GLUBED (test code = GLUBED) 215 mg/dL 70-110 H [id number] 00:35:00 Test Item Value Reference Range Interpretation Comments GLUBED (test code = GLUBED) 260 mg/dL 70-110 H COMPREHENSIVE METABOLIC [id number] 18:48:00 Test Item Value Reference Range Interpretation [...] 50.0-136.0 N code = ALKP) COMPREHENSIVE METABOLIC [id number] 18:41:00 Test Item Value Reference Range Interpretation [...] (test Units/L 50.0-136.0 code = ALKP) PROTHROMBIN [id number] 18:36:00 Test Item Value Reference Range Interpretation Comments PROTHROMBIN TIME 12.6 SECONDS 9.9-12.8 N PATIENT (test code = PTP) INTERNATIONAL NORMAL 1.1 0.89-1.14 N THE INR IS TO BE USED RATIO (test code = ONLY FOR MONITORING INR) ORAL ANTICOAGULANTTH ERAPY. THE FOLLOWING A RE SUGGESTED RANGE S FROM [facility] LEGE OF CHEST PHYSICIANS:REJI CATION INR VALUEPROPHY [...] D ANTIBODIES 2.5 - 3.5 CBC W/AUTO [id number] 18:31:00 Test Item Value Reference Range Interpretation [...] K/mm3 0.0-0.2 N - CT L-SPINE W/O [id number] 18:03:00 FAX: Sagar Troncoso MD [phone] [place]: St: REG Name: SUDHEER JUAREZ [facility] : 1970 Age/S: 47/M [address] [facility] Unit: [id number] Loc: [place], [place] Phys: Sagar Peters [facility] [address] Acct: [id number] Dis Date: Status: REG ER PHONE #: [phone] Exam Date: 08/10/2018 1757 FAX #: [phone] Reason: acute injury, Hx L3-4 fusion EXAMS: CPT CODE: [id number] CT L-SPINE W/O CONTRAST 10319 EXAM: CT LUMBAR SPINE WITHOUT CONTRAST INDICATION: [...] Signed Report (CONTINUED) FAX: Sagar Troncoso MD [phone] [place]: St: REG Name: SUDHEER JUAREZ [facility] : 1970 Age/S: 47/M [address] [facility] Unit: [id number] Loc: [place], [place] Phys: [place] [address] Acct: [id number] Dis Date: Status: REG ER PHONE #: [phone] ExamDate: 08/10/2018 175 FAX #: [phone] Reason: acute injury, Hx L3-4 fusion EXAMS: CPT CODE: [id number] CT L-SPINE W/O CONTRAST 47077 (Continued) Diffuse discogenic disease and facet joint [...] Reported and signed by: Leslee Lobo M.D. CC:Sagar Peters MD Technologist: MEHUL AWAN [facility] Dt/Tm: 08/10/2018 (1805) [email or web address] Orig Print D/T: S: 08/10/2018 (9916 PAGE 2 Signed Report- CT HEAD/BRAIN W/O [id number] 17:56:00 FAX: Sagar Troncoso MD [phone] [place]: St: REG Name: SUDHEER JUAREZ [facility] : 1970 Age/S:47/M [address] [facility] Unit: [id number] Loc: [place], [place] Phys: [place] [address] Acct: [id number] Dis Date: Status: REG ER PHONE #: [phone] Exam Date: 08/10/2018 1754 FAX #: [phone] Reason: acute injury, +LOC EXAMS: CPT CODE: [id number] CT HEAD/BRAIN W/O CONT 54186 CT HEAD WITHOUT CONTRAST. HISTORY: acute injury, [...] No evidence of acute intracranial abnormality. at 1754 Reported and signed by: Augusta Remy M.D. CC: Sagar Peters MD Techno logist: MEHUL AWAN Trnscrd Dt/Tm: 08/10/2018 (8306) [email or web address] Orig Print D/T: S: 08/10/2018 (9298 PAGE 1 Signed Report- XR T-SPINE 3 [id number] 17:33:00 FAX: Sagar Troncoso MD [phone] [place]: St: REG Name: SUDHEER JUAREZ [facility] : 1970 Age/S: 47/M [address] [facility] Unit #: [id number] [place]: [place]: [place] [id number] Acct: [id number] Dis Date: Status: REG ER PHONE #: [phone] Exam Date: 08/10/2018 1729 FAX #: [phone] Reason: acute injury EXAMS: CPT CODE: [id number] XR T-SPINE 3 [id number] Site ID: [id number] HISTORY: Acute injury, back pain IMPRESSION: Normal thoracic kyphosis, no acute fracture or subluxation. No significant spondylosis. Visualized ribs are intact. Spinal epidural leads terminate at the T8-T9 level. at 1733 Reported a nd signed by: Memo Matos M.D. CC: Sagar Peters MD Technologist: HAI ELKINS Trnscrd Date/Time/By: 08/10/2018 (3725) : By: [email or web address] PAGE 1 Signed Report FAX: Sagar Troncoso MD [phone] [place]: St: REG -- Name: SUDHEER JUAREZ [facility] : 1970 Age/S: 47/M [address] [place] Unit #: [id number] Loc: [place], [place]: [place] [id number] Acct: [id number] Dis Date:Status: REG ER PHONE #: [phone] Exam Date: 08/10/2018 1729 FAX #: [phone] Reason: acute injury EXAMS: CPT CODE: [id number] XR T-SPINE 3 VIEWS 91124 (Continued) Orig Print D/T: S: 08/10/2018 (1736) PAGE 2 Signed Report[U] XRAY SPINE LUMBOSACRAL MIN 4 VWS [id number] 13:57:00 Test Item Value Reference Range Interpretation Comments XR SPINE LUMBOSACRAL EXAM: XR SPINE MIN 4 VWS (test code = LUMBOSACRAL MIN 4 VWS 58991-1) DATE: 05/30/2017 at 1400 hours. INDICATION: Lower back pain. COMPARISON: None available. TECHNIQUE: AP, lateral, coned lateral, LPO and RPO radiographs of the lumbar spine. FINDINGS:5 nonrib bearing, lumbar-type vertebral bodies are present.A presumed spinal cord stimulator battery pack project over the left hip. Its distal leads are excluded from the copoz-zy-pyna.Moderate facet arthropathy is present throughout the mid to lower lumbar spine.There appears to be an intervening disc spacer at the L3-L4 level. IMPRESSION:1. No acute, radiographic abnormality of the lower lumbar spine.2. Advanced facet arthropathy throughout the mid to lower lumbar spine.3. Probable intervening disc spacer at the L3-L4 level. 05/30/2017 2:32 PM TECHNICAL TRAINING SPECIALIST [facility] [place] [facility] Notes Date/Time Note Provider Source 2022-12-20 Addended by: JAMILA PHILLIPS on: 2022 04:54 PM [facility] [employer] 16:54:50-00:00 Modules accepted: Orders 2022-12-20 Formatting of this note is different from the or iginal. [facility] 14:54:59-00:00 Order History 5 weeks ago (11/12/2022) MONTELUKAST 10 mg tablet TAKE 1 TABLET BY MOUTH IN THE MORNING Dispense: 30 tablet Refills: 0 Start: 11/12/2022 Recent Visits Date Type Provider Dept 11/28/22 [...] and meeting all other requirements Future Appointments No visits were found meeting these conditions. Showing future appointments within next 150 days with a meds authorizing provider and meeting all other requirements 2022-12-18 Formatting of this note might be differe nt from the original. Miya Valentin LVN [facility] 13:32:10-00:00 rep notified of all. No further needs voiced at this time. Electronically signed by Miya Valentin LVN at 0 12/18/2022 1:32 PM CDT 2022-12-18 [facility] 10:51:50-00:00 I placed a referral to physi lula therapy for seating evaluation to be evaluated for power mobility device 2022-12-17 Formatting of this note might be differe nt from the original. Nava Hernandez [facility] 13:42:18-00:00 Mae with [facility] calling requesting for an order motorized scooter for pt. Please advise. Call back number: [phone] 2022-12-11 Formatting of this note is different from the or iginal. [facility] 12:39:03-00:00 Images from the original note were [...] what he should do. Please advise 2022-12-11 [facility] 12:34:55-00:00 Nauseous yesterday, vomited once today just [...] differe nt from the original. Magdalena Hernandez [facility] 12:13:41-00:00 Pt called and stated that he has a migraine and is vomiting. Pt needs guidance of what he should do. Please advise 2022-12-10 Formatting of this note might be differe nt from the original. Miya Valentin [facility] 10:14:30-00:00 Spoke with Koby at [facility] and confirmed that Dr. Phillips is patient's PCP. No further information requested. Electronically signed by Miya Valentin LVN at 0 12/10/2022 10:15 AM CDT 2022-12-07 Formatting of this note might be differe nt from the original. Chely Sheikh [facility] 09:29:51-00:00 Mehnaz with [facility] Staff is needing to speak to nurse in regards to pt last office visit and if pt will follow home ana. Electronically signed by Chely Sheikh at 9:31 AM CDT 2022-12-05 Formatting of this note might be differe nt from the original. Miya Valentin [facility] 17:47:11-00:00 Sudheer GALE/Spouse-Viki h contacted on 12/05/2022. She was notified orders have been placed and are pending insurance approval. Electronically signed by Miya Valentin LVN at 0 12/05/2022 5:50 PM CDT 2022-12-05 Formatting of this note might be differe nt from the original. Chely Sheikh [facility] 15:44:24-00:00 Spouse states pt was seen on 11/28/[address] PHILLIPS an stated pt had a stroke an requesting a order for hospital bed, bed toilet, ankle foot osteosis 90 degree and tub transfer bench. Contact spouse when processed. Electronically signed by Chely Sheikh at 3:48 PM CDT 2022-12-04 Formatting of this note is different fro m the original. Amina Mayorga MA [facility] 10:20:23-00:00 Images from the original note were [...] Dept 12/12/22 Appointment Blessing Yanes PA [facility] Showing future appointments within next 150 [...] last 12 months To be filled at: [employer] [id number] [address] [facility] 2022-11-30 Formatting of this note is different from the or iginal. [facility] 15:30:15-00:00 Images from the original note were not included. Patient seen in office 11/28/22 Office Visit 11/28/2022 [facility] Family Medicine, [place] Jamila Phillips MD -FAMILY MEDICINE Acute ischemic left MCA strok e +5 more Dx Hospital F/U Reason for Visit Progress Notes Jamila Phillips MD (STAFF) -FAMILY [place] EDICINE Expand All Collapse All Family Medicine Clinic Visit Date: 11/28/2022 CC: Hospital F/U HPI: Sudheer Juarez is a 52 year ol d male presents for hospital follow-up. This is our first visit together, he has not been seen in our clinic for almost a year now. He went to outside hospital 711 with acute weakness and then was transferred to [facility] as he was found to have a subdural hematoma as well as acute left-sided ischemic stroke. Medications were changed, he was discharged on Plavix and rosuvastatin for stroke prevention. Aspirin and Eliquis were discontinued due to the subdural hematoma. He was recommended to follow-up with [facility] internal medicine, ace leblancy and also EP for impla ntable loop recorder to evaluate for arrhythmia. No appointments have been scheduled yet, he has a listed phone numbers to call. He lives with his and s on, in [place]. He has severe weakness to the right [...] shower and twisted the right knee 2022-11-26 [facility] 16:06:40-00:00 Attempted to contact patient . No answer. Left message to call back. Jacqui Gómez LVN 11/26/2022 4:06 PM 2022-11-26 Formatting of this note might be differe nt from the original. Berna Fuentes [facility] 10:15:59-00:00 Patient called asking to spe ak to nurse, he was hospitalized and they had put him on a new meds, he is scheduled fo Hospital fu on Saturday, he has questions regarding his medications. Please advise Electronically signed by Berna Fuentes at 11/26 10:18 AM CDT 2018-09-18 1515-2227 [facility] 10:38:00-00:00 [address] [place], [place] [address] PATIENT NAME: SUDHEER JUAREZ ADMIT DATE: ACCOUNT NO: [id number] DISCHARGE DATE: 9 ROOM NO: E.438 REPORT TYPE: DISCHARGE SUMMARY DATE OF : AGE: 48 SEX: M ADMITTING PHYSICIAN:Sky Bartholomew MD ATTENDING PHYSICIAN:Sky Bartholomew MD ADMISSION DATE: 08/10/2018 DISCHARGE DATE: 08/14/2018 PRIMARY CARE PHYSICIAN: REBA. REASON FOR ADMISSION: Severe back pain. CONSULTATIONS: 1. Dr. Avila, orthopedics. 2. Pain management, Star Valenzuela. HISTORY OF PRESENT ILLNESS AND HOSPITAL COURSE: A 47-year-old patient with known history of chronic back pain who follows w [facility] pain management and has fentanyl pain pump, also wit h history of L3-L4 spinal fusion, also with history of hypertension, diabetes, T IA, hyperlipidemia, lupus, anxiety, presented to the hospital with excruciating back pain. EMS was ca lled. He was brought into the hospital. He denies any incontinence or perineal sensory loss. The patient was diagnosed with fsnke-ne-yvdmgst intractable low back pain. Diabetes and hypertension [...] negative for acut e fracture. Dictated By: aLkeisha Flaherty MD PATIENT NAME: SUDHEER JUAREZ ACCOUNT #: [id number] WT: DS:E.FELICITA/SINSI/NTS Conf#: [id number]/DID#: [id number] Authenticated by Lakeisha Flaherty MD On 09/22/2018 02:45:38 PM Electronically Signed by Lakeisha Flaherty MD on 0 09/22/18 at 1445 PATIENT NAME: SUDHEER JUAREZ ACCOUNT #: [id number] 2018-08-16 [facility] 23:31:00-00:00 [facility] ([facility]) EMERGENCY PROVIDER REPORT REPORT#:[id number] REPORT STATUS: Signed DATE:08/16/18 TIME: 2330 PATIENT: SUDHEER JUAREZ UNIT #: [id number] ROOM/BED: AGE: 47 SEX: M PCP PHYS: No Primary or Family Ph ysician SERVICE AUTHOR: Rin Simmons REFRIGERATION SYSTEM INSTALLER * ALL edits or amendments must be made on the [employer]/computer document * HPI-Back Pain 40 and Over [...] mellitus, Hypertension. Additional Medical History Lupus, No NH, Heart Grafts x2, anxiety Additional Surgical History [...] Pulse 83 08/16 230 Resp 18 08/16 230 Last Documented: Result Date Time Pulse Ox 97 08/17 0030 B/P 155/80 08/17 0030 B/P Mean 105 08/17 0030 Temp 36.7 04/07 0030 Pulse 80 08/17 0030 Resp 18 08/17 003 O2 Delivery Room air 08/16 2306 Review [...] Ox 97 08/17 0030 B/P 155/80 08/17 003 B/P Mean 105 08/17 29 Temp 36.7 [...] symptoms should prompt an immediate return to th is or the closest emergency department or a call to 911. at 2117 RPT #:[id number] END OF REPORT 2018-08-16 [facility] 23:31:00-00:00 [facility] ([facility]) EMERGENCY PROVIDER REPORT REPORT#:[id number] REPORT STATUS: Signed DATE:08/16/18 TIME: 2330 PATIENT: SUDHEER JUAREZ UNIT #: [id number] ROOM/BED: AGE: 47 SEX: M PCP PHYS: No Primary or Family Ph ysician SERVICE AUTHOR: Rin Simmons NP * ALL edits or amendments must be made on the [employer] document * Rin Simmons 08/16/18 2331: HPI-Back Pain 40 and Over General Confirmed Patient Yes Patient Type Existing patient Assumed Care at Time 231 Presentation Chief Complaint Pain, lumbar Hx Obtained [...] mellitus, Hypertension. Additional Medical History Lupus, No NH, Heart Grafts x2, anxiety Additional Surgical History [...] 0030 B/P Mean 105 08/170 Temp 36.7 08/170 Pulse 80 08/170 Resp 18 08/17 0030 O2 Delivery Room air 08/16 2305 Review [...] MG ONCE ONE 08/16 2345 DC 0 08/16 IV 08/16 2345 2346 Hydromorphone HCl 1 MG ONCE ONE 08/16 2330 DC SC 08/16 2331 Patient Discharge Departure Vital Signs/Condition Vital Signs First Documented: Result Date Time Pulse Ox 96 08/16 2306 B/P 164/100 08/16 2306 B/P Mean 121 04/06 2306 O2 Delivery Room air 08/16 2305 [...] symptoms should prompt an immediate return to [facility] or the closest emergency department or a call to 911. Vani Madden 08/17/182116: HPI-Back Pain 40 and Over General Initial Greet Date/Time 08/16/18 2311 Physical Exam Vital Signs Vital Signs Re-Evaluation MDM ED Course Medication(s) Ordered Patient Discharge Departure Vital Signs/Condition Vital Signs Supervising Physician Note MidLv Saw Pt Alone I have reviewed the PA/REFRIGERATION SYSTEM INSTALLER's note and plan of car e. I was available for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
[2022-12-20] MEDS ORDERED: METOCLOPRAMIDE 10 MG/2mL INJ ONE (22:46)
[2022-12-20] MEDS ORDERED: MECLIZINE HCL 12.5 MG TAB ONE (22:46)
[2022-12-20 23:35] LABS: Protime INR 1.09
[2022-12-20 23:47] LABS: Absolute Lymphocytes (CBC) 2.2 K/uL (0.7-4.9); Hematocrit 42.4 % (39.6-49.0); Lymphocytes % 20.8 % (15.3-44.8); MCV 88.3 fL (80-100); MPV 11.7 fL (7.6-11.3); Platelets 145 thou/uL (152-406)
[2022-12-20 23:49] LABS: Albumin 3.5 g/dL (3.4-5.0); Bilirubin Direct 0.2 mg/dL (0-0.2); Bilirubin Indirect, Calculated 0.3 mg/dL (0.2-0.8); Bilirubin Total 0.5 mg/dL (0.2-1.0); Potassium 3.7 mEq/L (3.5-5.1); Protein, Total 8.1 g/dL (6.4-8.2); Troponin High Sensitivity 4.2 pg/mL (<58.9)
[2022-12-21 00:16] LABS: Urine Bacteria None Seen /HPF (<20); Urine Color Yellow (Yellow); Urine Mucus Slight /HPF (None Seen); Urine RBC None Seen /HPF (None Seen)
[2022-12-21 00:17] LABS: Specific Gravity 1.024 (1.005-1.030); Urine Bilirubin Negative (Negative); Urine Blood Negative (Negative); Urine Clarity Clear (Clear); Urine Glucose Negative (Negative); Urine Protein Trace (Negative); Urine Urobilinogen 2+ (Normal)
--- NOTE | 2022-12-21 01:54 | ER ---
Nurse's Notes [facility] Name: Matti Juarez Age: 52 yrs Sex: Male : 1970 Arrival Date: 12/20/2022 Time: 21:41 Bed 18 Private MD: Diagnosis: Weakness;Abdominal pain, unspecified;Dizziness and giddiness;Nausea;Headache Presentation: 12/20 21:57 Chief complaint: Patient states: :Today, I started having abd pain and swelling, mb9 nausea, weaker than normal, and a headache." Pt denies D/V/SOB. Coronavirus screen: Vaccine status: Patient reports receiving the 2nd dose of the covid vaccine. Ebola Screen: No symptoms or risks identified at this time. Initial Sepsis Screen: Does the patient meet any 2 criteria? No. Patient's initial sepsis screen is negative. Does the patient have a suspected source of infection? No. Patient's initial sepsis screen is negative. Risk Assessment: Do you want to hurt yourself or someone else? Patient reports no desire to harm self or others. Onset of symptoms was December 20, 2022. 21:57 Method Of Arrival: Wheelchair mb9 21:57 Acuity: JELENA 3 mb9 Triage Assessment: 21:59 General: Appears uncomfortable, Behavior is cooperative. Pain: Complains of pain in mb9 abdomen Pain does not radiate. Pain currently is 4 out of 10 on a pain scale. Quality of pain is described as throbbing, Pain began suddenly, Is continuous. Neuro: Guillory Agitation-Sedation Scale (RASS): 0 - Alert and Calm Level of Consciousness is awake, alert, obeys commands, Oriented to person, place, time, situation, Appropriate for age. Neuro: Reports headache. Cardiovascular: Patient's skin is warm and dry. Respiratory: Airway is patent Respiratory effort is even, unlabored, Respiratory pattern is regular, symmetrical. GI: Abdomen is round Abd is soft Abdomen is tender to palpation X 4 quads. Reports nausea, Patient currently denies diarrhea, vomiting. : No signs and/or symptoms were reported regarding the genitourinary system. Derm: Skin is pink, warm \\T\\ dry. Musculoskeletal: Range of motion: intact in all extremities. Historical: - Allergies: 21:56 Anesthesia; mb9 21:56 Aspirin; mb9 21:56 atorvastatin; mb9 21:56 Iodinated Contrast Media - IV Dye (cardiac arrest); mb9 21:56 Requip; mb9 21:56 ropinirole HCl; mb9 21:56 SHELLFISH; mb9 - PMHx: 21:56 cardiac arrest; Diabetes - NIDDM; heart catheterization; Hemorrhagic Stroke; mb9 Hypertension; Right sided weakness; - PSHx: 21:56 Cholecystectomy; pain pump implant, RIGHT lower abd; spine fusion; spine stimulator, mb9 LEFT hip; - Immunization history:: Adult Immunizations up to date. - Social history:: Smoking status: Patient denies any tobacco usage or history of. Screenin:01 [facility] ED Fall Risk Assessment (Adult) History of falling in the last 3 months, mb9 including since admission Yes- single mechanical fall (1 pt) Confusion or Disorientation No (0 pts) Intoxicated or Sedated No (0 pts) Impaired Gait Yes (1 pt) Mobility Assist Device Used Yes (1 pt) Altered Elimination No (0 pt) Score/Fall Risk Level 3 or more points = High Risk Oriented to surroundings, Maintained a safe environment, Educated pt \\T\\ family on fall prevention, incl call for assistance when getting out of bed. Abuse screen: Denies threats or abuse. Nutritional screening: No deficits noted. Tuberculosis screening: No symptoms or risk factors identified. Assessment: 23:00 General: Appears in no apparent distress. uncomfortable, Behavior is calm, cooperative. lg3 Pain: Complains of pain in abdomen. Neuro: No deficits noted. Guillory Agitation-Sedation Scale (RASS): 0 - Alert and Calm Level of Consciousness is awake, alert, obeys commands, Oriented to person, place, time, situation, Reports headache weakness. Cardiovascular: No deficits noted. Denies chest pain, shortness of breath, Capillary refill < 3 seconds Clubbing of nail beds is absent JVD is absent Patient's skin is warm and dry. Rhythm is sinus rhythm. Respiratory: No deficits noted. Airway is patent Respiratory effort is even, unlabored, Respiratory pattern is regular, symmetrical. GI: No deficits noted. Abdomen is round non-distended, Reports lower abdominal pain, upper abdominal pain, bloating, cramping, nausea. : No deficits noted. No signs and/or symptoms were reported regarding the genitourinary system. EENT: No deficits noted. No signs and/or symptoms were reported regarding the EENT system. Derm: No deficits noted. No signs and/or symptoms reported regarding the dermatologic system. Skin is intact, is healthy with good turgor, Skin is dry, Skin is normal, Skin temperature is warm. Musculoskeletal: Circulation, motion, and sensation intact. Range of motion: limited in right sided paralysis post previous stroke Reports generalized weakness. 23:38 Reassessment: Patient appears in no apparent distress at this time. No changes from lg3 previously documented assessment. Patient and/or family updated on plan of care and expected duration. Pain level reassessed. Patient is alert, oriented x 3, equal unlabored respirations, skin warm/dry/pink. 12/21 01:11 Reassessment: Patient appears in no apparent distress at this time. No changes from lg3 previously documented assessment. Patient and/or family updated on plan of care and expected duration. Pain level reassessed. Patient is alert, oriented x 3, equal unlabored respirations, skin warm/dry/pink. Vital Signs: 12/20 21:57 BP 163 / 93; Pulse 77; Resp 18; Temp 98.4; Pulse Ox 99% on R/A; Weight 104.33 kg; mb9 Height 5 ft. 6 in. ; Pain 4/10; 23:00 BP 158 / 101; Pulse 101; Resp 21 S; Pulse Ox 100% on R/A; lg3 12/21 00:22 BP 156 / 95; Pulse 75; Resp 18 S; Pulse Ox 100% on R/A; lg3 01:11 BP 144 / 96; Pulse 59; Resp 17 S; Pulse Ox 98% on R/A; lg3 12/20 21:57 Body Mass Index 37.12 (104.33 kg, 167.64 cm) mb9 12/20 21:57 Pain Scale: Adult mb9 ED Course: 12/20 21:44 Patient arrived in ED. im 21:49 Reyes Fitzgerald PA is PHCP. cp 21:49 Reyes Llanes MD is Attending Physician. cp 21:56 Arm band placed on. mb9 21:59 Triage completed. mb9 22:01 Placed in gown. Bed in low position. Call light in reach. Side rails up X 1. Client mb9 placed on continuous cardiac and pulse oximetry monitoring. NIBP monitoring applied. 22:32 Seda Parson, RN is Primary Nurse. lg3 23:00 Door closed. Noise minimized. Warm blanket given. Family accompanied patient. lg3 23:00 Initial lab(s) drawn, by me, sent to lab. Urine collected: clean catch specimen, clear, lg3 EKG done, by ED staff, reviewed by Reyes BE. Inserted saline lock: 22 gauge in left antecubital area, using aseptic technique. Blood collected. Patient maintains SpO2 saturation greater than 95% on room air. 23:24 CT Head C Spine In Process Unspecified. EDMS 23:25 CT Abd/Pelvis - Without Contrast In Process Unspecified. EDMS 23:32 XRAY Chest (1 view) In Process Unspecified. EDMS 12/21 02:09 No provider procedures requiring assistance completed. IV discontinued, intact, jw7 bleeding controlled, No redness/swelling at site. Pressure dressing applied. 02:10 Provided Education on: discharge instructions. jw7 Administered Medications: 12/20 23:09 Drug: Meclizine PO 25 mg Route: PO; lg3 23:37 Follow up: Response: No adverse reaction lg3 23:09 Drug: metoCLOPramide IVP 10 mg Route: IVP; Site: left antecubital; lg3 23:37 Follow up: Response: No adverse reaction lg3 Medication: 22:01 VIS not applicable for this client. mb9 Outcome: 12/21 01:54 Discharge ordered by . cp 02:09 Discharged to home via wheelchair, with family. jw7 02:09 Condition: stable 02:09 Discharge instructions given to patient, Instructed on discharge instructions, follow up and referral plans. medication usage, Demonstrated understanding of instructions, follow-up care, medications, Prescriptions given X 2. 02:10 Patient left the ED. jw7 Signatures: Dispatcher [employer] EDHI Reyes Fitzgerald PA PA cp Gibson, Lacie, RN RN lg3 Lakesha Ortega RN RN jw7 Audrey Geronimo RN RN mb9 Michelle Ramires
--- NOTE | 2022-12-21 01:54 | EDPHYS ---
Physician Documentation [facility] Name: Matti Juarez Age: 52 yrs Sex: Male : 1970 Arrival Date: 12/20/2022 Time: 21:41 Bed 18 Private MD: ED Physician Reyes Llanes HPI: 12/20 22:33 This 52 yrs old Male presents to ER via Wheelchair with complaints of General cp Weakness, Nausea, Abdominal Swelling, Dizziness. 22:33 The patient presents with abdominal pain in the right upper quadrant, abdominal cp distention that is diffuse. 22:33 Onset: The symptoms/episode began/occurred today. cp 22:33 The patient presents with dizziness, lightheadedness. cp 22:33 Onset: The symptoms/episode began/occurred today. Associated signs and symptoms: cp Pertinent positives: weakness, headache. Historical: - Allergies: 21:56 Anesthesia; mb9 21:56 Aspirin; mb9 21:56 atorvastatin; mb9 21:56 Iodinated Contrast Media - IV Dye (cardiac arrest); mb9 21:56 Requip; mb9 21:56 ropinirole HCl; mb9 21:56 SHELLFISH; mb9 - PMHx: 21:56 cardiac arrest; Diabetes - NIDDM; heart catheterization; Hemorrhagic Stroke; mb9 Hypertension; Right sided weakness; - PSHx: 21:56 Cholecystectomy; pain pump implant, RIGHT lower abd; spine fusion; spine stimulator, mb9 LEFT hip; - Immunization history:: Adult Immunizations up to date. - Social history:: Smoking status: Patient denies any tobacco usage or history of. ROS: 22:35 Constitutional: Negative for body aches, chills, fever, poor PO intake. cp 22:35 Eyes: Negative for injury, pain, redness, and discharge. cp 22:35 Cardiovascular: Negative for chest pain, edema, palpitations. 22:35 Respiratory: Negative for cough, shortness of breath, wheezing. 22:35 Abdomen/GI: Positive for abdominal pain, nausea, abdominal distension, Negative for vomiting, diarrhea, constipation, black/tarry stool. 22:35 Neuro: Positive for dizziness, headache, weakness. cp 22:35 : Negative for urinary symptoms. cp 22:35 All other systems are negative. Exam: 22:50 ECG was reviewed by the Attending Physician. cp Vital Signs: 21:57 BP 163 / 93; Pulse 77; Resp 18; Temp 98.4; Pulse Ox 99% on R/A; Weight 104.33 kg; mb9 Height 5 ft. 6 in. ; Pain 08/20; 23:00 BP 158 / 101; Pulse 101; Resp 21 S; Pulse Ox 100% on R/A; lg3 12/21 00:22 BP 156 / 95; Pulse 75; Resp 18 S; Pulse Ox 100% on R/A; lg3 01:11 BP 144 / 96; Pulse 59; Resp 17 S; Pulse Ox 98% on R/A; lg3 12/20 21:57 Body Mass Index 37.12 (104.33 kg, 167.64 cm) mb9 12/20 21:57 Pain Scale: Adult mb9 MDM: 12/20 21:49 Patient medically screened. cp 12/20 22:30 Order name: Basic Metabolic Panel; Complete Time: 00:53 cp 12/21 00:53 Interpretation: Normal except: CL 109. cp 12/20 22:30 Order name: CBC with Diff; Complete Time: 00:53 cp 12/21 00:53 Interpretation: Normal except: PLT 145; MPV 11.7; EOSINOPHIL % 5.1. cp 12/20 22:30 Order name: LFT's; Complete Time: 00:53 cp 12/21 00:53 Interpretation: GLOB 4.6; A/G 0.8. cp 12/20 22:30 Order name: Magnesium; Complete Time: 00:53 cp 12/20 22:30 Order name: PT-INR; Complete Time: 00:53 cp 12/20 22:30 Order name: Troponin HS; Complete Time: 00:53 cp 12/20 22:30 Order name: Urinalysis W/Microscopic; Complete Time: 00:53 cp 12/21 00:54 Interpretation: Normal except: UUROB 2+. cp 12/20 22:30 Order name: XRAY Chest (1 view) cp 12/20 22:30 Order name: CT Head C Spine cp 12/20 22:30 Order name: CT Abd/Pelvis - Without Contrast cp 12/20 22:30 Order name: EKG; Complete Time: 22:30 cp 12/20 22:30 Order name: Cardiac monitoring; Complete Time: 23:09 cp 12/20 22:30 Order name: EKG - Nurse/Tech; Complete Time: 23: cp 12/20 22:30 Order name: IV Saline Lock; Complete Time: 23: cp 12/20 22:30 Order name: Labs collected and sent; Complete Time: 23: cp 12/20 22:30 Order name: O2 Per Protocol; Complete Time: 23: cp 12/20 22:30 Order name: O2 Sat Monitoring; Complete Time: 23: cp EC:50 Rate is 70 beats/min. Rhythm is regular. CO interval is normal. QRS interval is normal. cp QT interval is normal. T waves are Inverted in lead aVR. Interpreted by me. Reviewed by me. Administered Medications: 23: Drug: Meclizine PO 25 mg Route: PO; lg3 23:37 Follow up: Response: No adverse reaction lg3 23:09 Drug: metoCLOPramide IVP 10 mg Route: IVP; Site: left antecubital; lg3 23:37 Follow up: Response: No adverse reaction lg3 Disposition Summary: 12/21/22 01:54 Discharge Ordered Location: Home cp Problem: new cp Symptoms: have improved cp Condition: Stable cp Diagnosis - Weakness cp - Abdominal pain, unspecified cp - Dizziness and giddiness cp - Nausea cp - Headache cp Followup: cp - With: Private Physician - When: 2 - 3 days - Reason: Recheck today's complaints Discharge Instructions: - Discharge Summary Sheet cp - Abdominal Pain, Adult cp - Dizziness cp - Nausea, Adult cp - Weakness cp Forms: - Medication Reconciliation Form cp - Thank You Letter cp - Antibiotic Education cp - Prescription Opioid Use cp - Patient Portal Instructions cp Prescriptions: - Meclizine 25 mg Oral Tablet - take 1 tablet by ORAL route every 8 hours As needed; 30 tablet; Refills: 0, cp Product Selection Permitted - Zofran 4 mg Oral Tablet - take 1 tablet by ORAL route every 12 hours As needed; 20 tablet; Refills: 0, cp Product Selection Permitted Signatures: Dispatcher [employer] EDPA Reyes Fitzgerald PA PA cp Gibson, Lacie RN RN lg3 Audrey Geronimo RN RN mb9 Corrections: (The following items were deleted from the chart) 12/22 02:05 02:04 Onset: The symptoms/episode began/occurred today, cp cp 02:06 02:04 The patient presents with dizziness, lightheadedness, cp cp
[2022-12-21 02:19] VITALS: TEMP 98.4
[2022-12-21 02:35] VITALS: BP 144/96; O2SAT 98
--- NOTE | 2022-12-21 17:37 | RAD REPORT ---
EXAM DESCRIPTION: CT - Head C Spine Mpr Wo Con - 12/21/2022 6:55 am CLINICAL HISTORY: The patient is 52 years old and is Male; fall TECHNIQUE: Axial computed tomography images of the head/brain and cervical spine without intravenous contrast. Sagittal and coronal reformatted images were created and reviewed. This CT exam was pe rformed using one or more of the following dose reduction techniques: automated exposure control, a djustment of the mA and/or kV according to patient size, and/or use of iterative reconstruction techn ique. COMPARISON: No relevant prior studies available. FINDINGS: Brain: Unremarkable. No hemorrhage. No significant white matter disease. No edema. Ventricles: Unremarkable. No ventriculomegaly. Skull: No acute fracture. Sinuses: Unremarkable as visualized. No acute sinusitis. Mastoid air cells: Unremarkable as visualized. No mastoid effusion. Vertebrae: See below. Discs/spinal canal/neural foramina: Multilevel disc space narrowing with degenerative endplate ch anges most prominent at C5-6. Soft tissues: Unremarkable. IMPRESSION: No acute intracranial abnormality. No acute findings in the cervical spine. Electronically signed by: He Winter MD 12/21/2022 12:39 AM CDT Due to temporary technical issues with the PACS/Fluency reporting system, reports are being signed by the in house radiologists without review as a courtesy to insure prompt reporting. The interpreting radiologist is fully responsible for the content of the report.
--- NOTE | 2022-12-21 17:43 | RAD REPORT ---
EXAM DESCRIPTION: CT - Abdomen Pelvis Wo Contrast - 12/21/2022 6:55 am CLINICAL HISTORY: The patient is 52 years old and is Male; ABDOMINAL DISTENTION TECHNIQUE: Axial computed tomography images of the abdomen and pelvis without intravenous contrast. Sagittal and coronal reformatted images were created and reviewed. This CT exam was performed usi ng one or more of the following dose reduction techniques: automated exposure control, adjustment o f the mA and/or kV according to patient size, and/or use of iterative reconstruction technique. COMPARISON: No relevant prior studies available. FINDINGS: Lung bases: Unremarkable. No mass. No consolidation. ABDOMEN: Liver: Unremarkable. Gallbladder and bile ducts: Gallbladder is surgically absent. No ductal dilation. Pancreas: Unremarkable. No ductal dilation. Spleen: Mild splenomegaly. Adrenals: Unremarkable. No mass. Kidneys and ureters: Mild bilateral perinephric stranding. No obstructing stones. No hydronephrosis. Stomach and bowel: Unremarkable. No obstruction. No mucosal thickening. PELVIS: Appendix: No findings to suggest acute appendicitis. Bladder: Unremarkable. Reproductive: Unremarkable as visualized. ABDOMEN and PELVIS: Intraperitoneal space: Unremarkable. No free air. No significant fluid collection. Bones/joints: Postsurgical changes in the lumbar spine. No acute fracture. No dislocation. Soft tissues: Unremarkable. Vasculature: Unremarkable. No abdominal aortic aneurysm. Lymph nodes: Unremarkable. No enlarged lymph nodes. Tubes, lines and devices: Stimulator leads in the spinal canal. IMPRESSION: No acute finding in the abdomen/pelvis. Electronically signed by: He Winter MD 12/21/2022 12:44 AM CDT Due to temporary technical issues with the PACS/Fluency reporting system, reports are being signed by the in house radiologists without review as a courtesy to insure prompt reporting. The interpreting radiologist is fully responsible for the content of the report.
--- NOTE | 2022-12-21 18:03 | RAD REPORT ---
EXAM DESCRIPTION: RAD - Chest Single View - 12/20/2022 11:30 pm CLINICAL HISTORY: The patient is 52 years old and is Male; ABDOMINAL DISTENTION TECHNIQUE: Frontal view of the chest. COMPARISON: No relevant prior studies available. FINDINGS: Lungs: Unremarkable. No consolidation. Pleural space: Unremarkable. No pneumothorax. Heart: Unremarkable. Mediastinum: Unremarkable. Bones/joints: Unremarkable. IMPRESSION: No acute findings in the chest. Electronically signed by: He Winter MD 12/21/2022 12:21 AM CDT Due to temporary technical issues with the PACS/Fluency reporting system, reports are being signed by the in house radiologists without review as a courtesy to insure prompt reporting. The interpreting radiologist is fully responsible for the content of the report.
--- NOTE | 2022-12-23 15:34 | EKG ---
Test Date: 2022-12-20 Test Time: 22:43:29 Production Supervisor Trainee: NICKI MEASUREMENT RESULTS: Intervals: Rate: 70 CA: 152 QRSD: 86 QT: 370 QTc: 399 [place]: P: 19 CA: 152 QRS: -62 T: 8 INTERPRETIVE STATEMENTS: Normal sinus rhythm Left axis deviation Abnormal ECG Compared to ECG 12/11/2022 13:52:47 Left-axis deviation now present Electronically Signed On 12-23-22 15:31:17 CDT by Sean Antoine
== END 2022-12-21 02:10 | disposition home or self-care (01) ==
LOC: ER 21:41
DX: R53.1 Weakness (principal); R10.11 Right upper quadrant pain; R51.9 Headache, unspecified; R42 Dizziness and giddiness; R11.0 Nausea; I10 Essential (primary) hypertension; E11.9 Type 2 diabetes mellitus without complications; Z88.4 Allergy status to anesthetic agent; Z88.6 Allergy status to analgesic agent; Z88.8 Allergy status to other drugs, medicaments and biological substances; Z91.041 Radiographic dye allergy status; Z91.013 Allergy to seafood; Z97.8 Presence of other specified devices
CPT/HCPCS: 93005; 85025; 81001; 80048; 36415; 83735; 85610; 80076; 84484; 70450; 72125; 74176; 71045; 96374; 99285; J8597; J2765

== ENCOUNTER 2023-01-05 21:23 | Emergency (ER) | payer OTHER ==
--- OUTSIDE RECORDS SUMMARY | 2023-01-05 21:44 | XMS REPORT | Continuity of Care Document ---
:1970 Author Organization [facility] t Address [address] [place] [address] Care Team Providers Name Role Phone NONE Primary Care Physician Unavailable AMANDA HANEY Attending Clinician Unavailable BELLE CATES Attending Clinician Unavailable DILIP BOLTON Attending Clinician Unavailable BLESSING YANES Attending Clinician Unavailable Blessing Murphy Attending Clinician Jamila Phillips MD Attending Clinician [phone] Doctor Unassigned, [place] Attending Clinician Unavailable JAMILA PHILLIPS Attending Clinician Unavailable Fabian [facility], Ashley Francis Attending Clinician Jennifer BRYSON, Dalila Ribera Attending Clinician [phone] Donta BRYSON, Belle Shelley Attending Clinician [phone] Ankita BRYSON, Mariangel Attending Clinician Medina BRYSON, Amanda Luna Attending Clinician [phone] Dilip Bolton MD Attending Clinician Hue [...] Unavailable Carlo BRYSON, Kory Leach Attending Clinician [phone] TOBI OLVERA Attending Clinician Unavailable TOBI OLVERA [...] Unavailable Klarissa BRYSON, Elver Santiago Attending Clinician [phone] Zuleima BRYSON, Belia Eli Attending Clinician Donta MARY, Nicky Attending Clinician Dante BRYSON, Mary Attending Clinician Alma BRYSON, Mikey Attending Clinician [phone] Skye BRYSON, Emiliano Mitchell Attending Clinician Sean [...] Clinician Unavailable Alma BRYSON, Mikey Admitting Clinician [phone] Sean Antoine Admitting Clinician Unavailable MATT RAMOS Admitting Clinician Unavailable Payers Payer Name Policy Type Policy Number Effective Date Expiration Date Micheline holloway [employer] MEDICARE [id number] 2022 00:00:00 MEDICAID OF [place] [id number] 2022 00:00:00 [facility]LLMED/[facility] DUAL [id number] 2021 COMP HMO D SNP 00:00:00 [place]ICAID [place] [id number] 2018 00:00:00 [facility] [id number] DUAL COMPLETE - DUAL ELIGIBLE - SNP (MEDICARE-MEDICAID REPLACEMENT HMO) [employer] [id number] 2020 MEDICARE HMO DSNP 00:00:00 MEDICARE-PART B 5 [id number] 2020 00:00:00 [facility] [id number] 2017 DUAL COMPLETE 00:00:00 [place] ACS - [id number] TMHP - TRADITIONAL Problems Condition Condition Condition Status Onset Resolution Last Treating Co mments Source Name Details Category Date Date Treatment Clinician Date Subdural Subdural Disease Recurre [facility] [place] [id number] [facility] Fatty Fatty Disease Active 2021-05 Univers liver liver 0-06 ity of 00:00: [place] [facility] Elevated Elevated Disease Active Unive rs AST (SGOT) AST (SGOT) 9-26 it y of 00:00: [place] [facility] History of History of Disease Active U nivers transient transient 5-05 ity of ischemic ischemic 00:00: [place] attack attack 00 Medical (TIA) (TIA) Branch Chest pain Chest pain Disease Active U nivers 7-23 ity of 00:00: [place] [facility] Generalize Generalize Disease Active 2017-05 M ethodi d weakness d weakness 2- st 00:[facility]: [facility]osp[facility] 00 l Arthralgia Arthralgia Disease Active 2017-05 M ethodi of of 2-20 st multiple multiple 00:00: Hospit a sites sites 00 l Nonspecifi Nonspecifi Disease Active 2017-05 U nivers c chest c chest 0-17 ity of pain pain 00:00: [place] [facility] Obesity Obesity Disease Active 2017-05 [...] nce 7-30 ity of mellitus mellitus 00:00: [place] with other with other 00 Me dical specified specified Bran ch complicati complicati on on SANDHYA SANDHYA Disease Recurre Univers (obstructi (obstructi nce 12-09 it y of ve sleep ve sleep 00:00: [place] apnea) apnea) 00 Medical Branch Essential Essential [...] Active High Anaphylaxis 2022-0 SL HV H 7-12 DERIVED 00:00: 00 SHELLFIS Allergy Active High Anaphylaxis 2022-0 SL HV H 712 CONTAINI 00:00: NG 00 PRODUCTS ROPINIRO Allergy Active Other [facility] LE 11-21 00:00: 00 ATORVAST Allergy Active Low Palpitations 2022-0 S [facility] ATIN 12 00:00: 00 Shellfis Propensi Active Anaphylaxis 2022-[address] [facility] ty to 11-21 [facility] Containi adverse 00:00: Medical ng reaction 00 Center Products s Atorvast Propensi Active Palpitations [facility] at[facility]12 [facility] adverse 00:00: Medical [...] 00 Center s Seafood/ Food Active Anaphylaxis 2018- Uni vers Fish Allergy 7 ity of 00:00: [address] Branch SEAFOOD/ Food Active High Anaphylaxis 2018-0 Uni vers FISH 7- ity of 00:00: [place] 00 [facility] Branch lisinopr DA Active PR 2019-0 [facility] il 4-05 [facility] 00:[facility]: d 00 [facility] iodine DA Active SV 2019-0 [facility] 4-05 [facility] 00:[facility]: d 00 [facility] Center lorazepa DA Active MO 2019-0 [facility] m 4-05 [facility] 00:[facility]: d 00 [facility] aspirin DA Active PR 2019-0 [facility] 4-05 [facility] 00:00: d 00 [facility] ropiniro DA Active PR 2019-0 [facility] le 4-05 [facility] 00:00: d 00 [facility] Center lisinopr DA Active PR 2019-0 [facility] il 3-31 [facility] 00:00: d 00 [facility] Center iodine DA Active SV 2019-0 [facility] 3-31 [facility] 00:00: d 00 [facility] Center lorazepa DA Active MO 2019-0 [facility] m 3-31 [facility] 00:00: d 00 [facility] aspirin DA Active PR 2019-0 [facility] 3-31 [facility] 00:00: d 00 [facility] ropiniro DA Active PR 2019-0 [facility] le 3-31 [facility] 00:00: d 00 [facility] Center iodine DA Active SV 2019-0 [facility] 1-05 [facility] 00:00: d 00 [facility] lisinopr DA Active PR 2019-0 [facility] il 1-01 [facility] 00:00: d 00 [facility] Center iodine DA Active PR 2019-0 [facility] 1-01 [facility] 00:00: d 00 [facility] Center lorazepa DA Active MO 2019-0 [facility] m 1- [facility] 00:00: d 00 [facility] Center aspirin DA Active PR 2019-0 [facility] 1 [facility] 00:00: d 00 [facility] Center ropiniro DA Active PR 2018-0 [facility] le 05-13 [facility] 00:00: d 00 [facility] Lisinopr Propensi Active Cough 2017-05 Persisten Uni vers il ty to 0-17 t cough ity of adverse 00:00: [place] reaction 00 Medical s to Branch drug LISINOPR DRUG Active Med COUGH 2017-05 Univers IL INGREDI 0-17 ity of 00:00: [place] 00 [facility] [place] lorazepa DA Active MO 2017-05 [facility] m 0-14 [facility] 00:00: d 00 [facility] lisinopr DA Active PR 0 [facility] il 8-25 Clear 00:00: [place] 00 [facility] iodine DA Active PR 2017- [facility] 8-25 Clear 00:00: [place] 00 [facility] aspirin DA Active PR [facility] 8-25 Clear 00:00: [place] 00 [facility] ropiniro DA Active PR [facility] le 8-25 Clear 00:00: [place] 00 [facility] Atorvast Propensi Active Other - See CoughCou [...] back surgery pt went into cardiac arrest. ([facility]) . Ropiniro Propensi Active Hypotensi Met hodi [...] Physici ans NO KNOWN Allergy Active [facility] Family History Family Member Diagnosis Comments Start Date Stop Date Source Maternal grandfather No Known Problems [facility] Paternal grandfather No Known Problems [facility] Paternal grandmother No Known Problems [facility] Natural father Hypertension [facility] Natural father Stroke [facility] Natural father Diabetes type [facility] Maternal grandmother Cancer [facility]aternal grandmother Diabetes [facility] Natural mother Diabetes [facility] Natural mother Hypertension [facility] Natural mother Stroke [facility] Natural sister Cancer [facility] Natural sister Diabetes type [facility] Natural sister Ovarian cancer [facility] Natural brother Leukemia [facility] Social History Social Habit Start Date Stop Date Quantity Comments Source Gender identity [facility] Sexual orientation [facility] Exposure to 2022-03-24 2022-04-03 Not sure [facility]-CoV-2 (event) 00:00:00 13:26:00 [facility] Tobacco use and 2022-02-02 2022-02-02 Smokeless Universit y of exposure 00:00:00 00:00:00 tobacco non-user [facility] History of Social 2019-01-02 2019-01-[address] function 00:00:00 00:00:00 Hospital Alcohol intake 2018-05-01 2018-05-01 Current [facility] 00:00:00 00:00:00 non-drinker of Hospital alcohol (finding) Sex Ass[birth year] At [birth year] GLENIS [place] 00:00:00 00:00:00 [facility] Smoking Status Start Date Stop Date Source Never smoked tobacco [facility] Medications Ordered Filled Start Stop Current Ordering Indication Dosage Frequency Signature Comments Components Source Medication Medication Date Date Medication? Clinician (SIG) Name Name mupirocin 2 Yes [id number] Apply to Univers % ointment 8-23 area(s) 3 ity of 00:00: (three) [place] 00 times Medical daily. Branch mupirocin 2 0 Yes [id number] Apply to Univers % ointment 8-23 area(s) 3 ity of 00:00: (three) [place] 00 times Medical daily. Branch mupirocin 2 2022-0 Yes [id number] Apply to Univers % ointment 8-23 area(s) 3 ity of 00:00: (three) [place] 00 times Medical daily. Branch mupirocin 2 0 Yes [id number] Apply to Univers % ointment 8-23 area(s) 3 ity of 00:00: (three) [place] 00 times Medical daily. Branch MONTELUKAST Yes [id number] TAKE 1 Univers 10 mg 8-10 TABLET BY ity of tablet 00:00: MOUTH IN [place] THE Medical MORNING Branch MONTELUKAST 0 Yes [id number] TAKE 1 Univers 10 mg 8-10 TABLET BY ity of tablet 00:00: MOUTH IN [place] THE Medical MORNING Branch MONTELUKAST Yes [id number] TAKE 1 Univers 10 mg 8-10 TABLET BY ity of tablet 00:00: MOUTH IN [place] 00 THE Medical MORNING Branch MONTELUKAST 2022-0 Yes [id number] TAKE 1 Univers 10 mg 8-10 TABLET BY ity of tablet 00:00: MOUTH IN [place] 00 THE Medical MORNING Branch MONTELUKAST 2022-0 Yes [id number] TAKE 1 Univers 10 mg 8-10 TABLET BY ity of tablet 00:00: MOUTH IN [place] 00 THE Medical MORNING Branch MONTELUKAST 2022-0 Yes [id number] TAKE 1 Univers 10 mg 8-10 TABLET BY ity of tablet 00:00: MOUTH IN [place] 00 THE Medical MORNING Branch MONTELUKAST 2022-0 Yes [id number] TAKE 1 Univers 10 mg 8-10 TABLET BY ity of tablet 00:00: MOUTH IN [place] 00 THE Medical MORNING Branch MONTELUKAST 0 Yes [id number] TAKE 1 Univers 10 mg 8-10 TABLET BY ity of tablet 00:00: MOUTH IN [place] 00 THE Medical MORNING Branch MONTELUKAST 2022-0 Yes [id number] TAKE 1 Univers 10 mg 8-10 TABLET BY ity of tablet 00:00: MOUTH IN [place] 00 THE Medical MORNING Branch MONTELUKAST 0 Yes [id number] TAKE 1 Univers 10 mg 8-10 TABLET BY ity of tablet 00:00: MOUTH IN [place] 00 THE Medical MORNING Branch MONTELUKAST 0 Yes [id number] TAKE 1 Univers 10 mg 8-10 TABLET BY ity of tablet 00:00: MOUTH IN [place] 00 THE Medical MORNING Branch metoprolol 0 2022- No 25mg Take 1 Univ ers tartrate 25 7-19 tablet by it y of mg tablet 12:20: 00:00 mouth in [facility] [place] [facility] as 19 :00 the Medical morning Branch and 1 tablet in the evening. metoprolol 2022-0 2022- No 25mg Take 1 Univ ers tartrate 25 7-28 11-19 tablet by it y of mg tablet 12:20: 00:00 mouth in [place] as 19 :00 the Medical morning Branch and 1 tablet in the evening. metoprolol 2022-0 2022- No 25mg Take 1 Univ ers tartrate 25 7-28 11-19 tablet by it y of mg tablet 12:20: 00:00 mouth in [place] as 19 :00 the Medical morning Branch and 1 tablet in the evening. metoprolol 2022-0 2023- No 25mg Take 1 Univ ers tartrate 25 7-19 07-19 tablet by it y of mg tablet 12:20: 00:00 mouth in [place] as 19 :00 the Medical morning Branch and 1 tablet in the evening. metFORMIN 2022-0 Yes [id number] 1000mg Take 1 Univers 1,000 mg 7-19 tablet by ity of tablet 00:00: mouth in [place] 00 the Medical morning Branch and 1 tablet in the evening. Take with meals. MUST BE SEEN FOR FURTHER REFILLS pantoprazol 2022-0 Yes [id number] 40mg Take 1 Univers e 40 mg EC 7-19 tablet by ity of tablet 00:00: mouth in [place] the morning. Branch metoprolol 2022-0 Yes [id number] 25mg Take 1 U nivers tartrate 25 7-19 tablet by ity of mg tablet 00:00: [place] the Medical morning Branch and 1 tablet in the evening. Blood-Gluco 0 Yes [id number] Use as Univers se Meter 7-19 directed. ity of (ONETOUCH 00:00: May [place] VERIO FLEX 00 substitute Med ical START) Kit brand Branch preferred by insurance blood sugar 0 Yes [id number] Test bid Univers diagnostic 7-19 daily for ity of (ONETOUCH 00:00: diagnosis [place] as VERIO TEST 00 code E11.9 Med ical STRIPS) May Branch strip substitute brand preferred by insurance Lancing 2022-0 Yes [id number] Test bid Un alfonso Device with 7-19 daily. Use it y of Lancets 00:00: as [place] (ONE TOUCH 00 directed. Medi lula DELICA) Kit May Branch substitute brand preferred by insurance metFORMIN 2022-0 Yes [id number] 1000mg Take 1 Univers 1,000 mg 7-19 tablet by ity of tablet 00:00: mouth in [place] 00 the Medical morning Branch and 1 tablet in the evening. Take with meals. MUST BE SEEN FOR FURTHER REFILLS pantoprazol 2022-0 Yes [id number] 40mg Take 1 Univers e 40 mg EC 7-19 tablet by ity of tablet 00:00: mouth in [place] 00 the Medical morning. Branch metoprolol 2022-0 Yes [id number] 25mg Take 1 U nivers tartrate 25 7-19 tablet by ity of mg tablet 00:00: mouth in s the Medical morning Branch and 1 tablet in the evening. Blood-Gluco 2022-0 Yes [id number] Use as Univers se Meter 7-19 directed. ity of (ONETOUCH 00:00: September [place] VERIO FLEX 00 substitute Med ical START) Kit brand Branch preferred by insurance blood sugar 2022-0 Yes [id number] Test bid Univers diagnostic 7-19 daily for ity of (ONETOUCH 00:00: diagnosis [place] VERIO TEST 00 code E11.9 Med ical STRIPS) May Branch strip substitute brand preferred by insurance Lancing 0 Yes [id number] Test bid Un alfonso Device with 7-19 daily. Use it y of Lancets 00:00: as [place] (ONE TOUCH 00 directed. Medi lula DELICA) Kit May Branch substitute brand preferred by insurance metFORMIN 0 Yes [id number] 1000mg Take 1 Univers 1,000 mg 7-19 tablet by ity of tablet 00:00: mouth in the Medical morning Branch and 1 tablet in the evening. Take with meals. MUST BE SEEN FOR FURTHER REFILLS pantoprazol 0 Yes [id number] 40mg Take 1 Univers e 40 mg EC 7-19 tablet by ity of tablet 00:00: mouth in the Medical morning. Branch metoprolol 0 Yes [id number] 25mg Take 1 U nivers tartrate 25 7-19 tablet by ity of mg tablet 00:00: mouth in [facility] [place] [facility] s the Medical morning Branch and 1 tablet in the evening. Blood-Gluco 2022-0 Yes [id number] Use as Univers se Meter 7-19 directed. ity of (ONETOUCH 00:00: September [place] VERIO FLEX 00 substitute Med ical START) Kit brand Branch preferred by insurance blood sugar 2022-0 Yes [id number] Test bid Univers diagnostic 7-19 daily for ity of (ONETOUCH 00:00: diagnosis [place] VERIO TEST 00 code E11.9 Med ical STRIPS) May Branch strip substitute brand preferred by insurance Lancing 0 Yes [id number] Test bid Un alfonso Device with 7-19 daily. Use it y of Lancets 00:00: as [place] (ONE TOUCH 00 directed. Medi lula DELICA) Kit May Branch substitute brand preferred by insurance metFORMIN 2022-0 Yes [id number] 1000mg Take 1 Univers 1,000 mg 7-19 tablet by ity of tablet 00:00: mouth in [place] 00 the Medical morning Branch and 1 tablet in the evening. Take with meals. MUST BE SEEN FOR FURTHER REFILLS pantoprazol 2022-0 Yes [id number] 40mg Take 1 Univers e 40 mg EC 7-19 tablet by ity of tablet 00:00: mouth in [place] 00 the morning. Branch metoprolol 2022-0 Yes [id number] 25mg Take 1 U nivers tartrate 25 7-19 tablet by ity of mg tablet 00:00: [place] the Medical morning Branch and 1 tablet in the evening. Blood-Gluco 2022-0 Yes [id number] Use as Univers se Meter 7-19 directed. ity of (ONETOUCH 00:00: May [place] VERIO FLEX 00 substitute Med ical START) Kit brand Branch preferred by insurance blood sugar 2022-0 Yes [id number] Test bid Univers diagnostic 7-19 daily for ity of (ONETOUCH 00:00: diagnosis [place] VERIO TEST 00 code E11.9 Med ical STRIPS) May Branch strip substitute brand preferred by insurance Lancing 0 Yes [id number] Test bid Un alfonso Device with 7-19 daily. Use it y of Lancets 00:00: as [place] (ONE TOUCH 00 directed. Medi lula DELICA) Kit May Branch substitute brand preferred by insurance metFORMIN 0 Yes [id number] 1000mg Take 1 Univers 1,000 mg 7-19 tablet by ity of tablet 00:00: mouth in [place] the Medical morning Branch and 1 tablet in the evening. Take with meals. MUST BE SEEN FOR FURTHER REFILLS pantoprazol 2022-0 Yes [id number] 40mg Take 1 Univers e 40 mg EC 7-19 tablet by ity of tablet 00:00: mouth in [place] 00 the Medical morning. Branch metoprolol 2022-0 Yes [id number] 25mg Take 1 U nivers tartrate 25 7-19 tablet by ity of mg tablet 00:00: [place] the Medical morning Branch and 1 tablet in the evening. Blood-Gluco 2022-0 Yes [id number] Use as Univers se Meter 7-19 directed. ity of (ONETOUCH 00:00: May [place] VERIO FLEX 00 substitute Med ical START) Kit brand Branch preferred by insurance blood sugar 0 Yes [id number] Test bid Univers diagnostic 7-19 daily for ity of (ONETOUCH 00:00: diagnosis [place] as VERIO TEST 00 code E11.9 Med ical STRIPS) May Branch strip substitute brand preferred by insurance Lancing Yes [id number] Test bid Un alfonso Device with 7-19 daily. Use it y of Lancets 00:00: as [place] (ONE TOUCH 00 directed. [facility]) Kit May Branch substitute brand preferred by insurance metFORMIN 0 Yes [id number] 1000mg Take 1 Univers 1,000 mg 7-19 tablet by ity of tablet 00:00: mouth in [place] 00 the Medical morning Branch and 1 tablet in the evening. Take with meals. MUST BE SEEN FOR FURTHER REFILLS pantoprazol 0 Yes [id number] 40mg Take 1 Univers e 40 mg EC 7-19 tablet by ity of tablet 00:00: mouth in [place] 00 the Medical morning. Branch metoprolol Yes [id number] 25mg Take 1 U nivers tartrate 25 7-19 tablet by ity of mg tablet 00:00: mouth in [facility] 00 the Medical morning Branch and 1 tablet in the evening. Blood-Gluco Yes [id number] Use as Univers se Meter 7-19 directed. ity of (ONETOUCH 00:00: May [place] VERIO FLEX 00 substitute Med ical START) Kit brand Branch preferred by insurance blood sugar 2022-0 Yes [id number] Test bid Univers diagnostic 7-19 daily for ity of (ONETOUCH 00:00: diagnosis [place] VERIO TEST 00 code E11.9 Med ical STRIPS) May Branch strip substitute brand preferred by insurance Lancing Yes [id number] Test bid Un alfonso Device with 7-19 daily. Use it y of Lancets 00:00: as [place] (ONE TOUCH 00 directed. [facility] lula DELICA) Kit May Branch substitute brand preferred by insurance metFORMIN 0 Yes [id number] 1000mg Take 1 Univers 1,000 mg 7-19 tablet by ity of tablet 00:00: mouth in [place] the Medical morning Branch and 1 tablet in the evening. Take with meals. MUST BE SEEN FOR FURTHER REFILLS pantoprazol 2022-0 Yes [id number] 40mg Take 1 Univers e 40 mg EC 7-19 tablet by ity of tablet 00:00: mouth in [place] the Medical morning. Branch metoprolol Yes [id number] 25mg Take 1 U nivers tartrate 25 7-19 tablet by ity of mg tablet 00:00: mouth in [facility] [place] [facility] the Medical morning Branch and 1 tablet in the evening. Blood-Gluco Yes [id number] Use as Univers se Meter 7-19 directed. ity of (ONETOUCH 00:00: May [place] VERIO FLEX 00 substitute Med ical START) Kit brand Branch preferred by insurance blood sugar Yes [id number] Test bid Univers diagnostic 7-19 daily for ity of (ONETOUCH 00:00: diagnosis [place] as VERIO TEST 00 code E11.9 Med ical STRIPS) May Branch strip substitute brand preferred by insurance Lancing Yes [id number] Test bid Un alfonso Device with 7-19 daily. Use it y of Lancets 00:00: as [place] (ONE TOUCH 00 directed. Medi lula DELICA) Kit May Branch substitute brand preferred by insurance metFORMIN Yes [id number] 1000mg Take 1 Univers 1,000 mg 7-19 tablet by ity of tablet 00:00: mouth in [place] the Medical morning Branch and 1 tablet in the evening. Take with meals. MUST BE SEEN FOR FURTHER REFILLS pantoprazol Yes [id number] 40mg Take 1 Univers e 40 mg EC 7-19 tablet by ity of tablet 00:00: mouth in [place] the Medical morning. Branch metoprolol Yes [id number] 25mg Take 1 U nivers tartrate 25 7-19 tablet by ity of mg tablet 00:00: mouth in [facility] [place] [facility] the Medical morning Branch and 1 tablet in the evening. Blood-Gluco Yes [id number] Use as Univers se Meter 7-19 directed. ity of (ONETOUCH 00:00: September [place] VERIO FLEX 00 substitute Med ical START) Kit brand Branch preferred by insurance blood sugar Yes [id number] Test bid Univers diagnostic 7-19 daily for ity of (ONETOUCH 00:00: diagnosis [place] as VERIO TEST 00 code E11.9 Med ical STRIPS) May Branch strip substitute brand preferred by insurance Lancing Yes [id number] Test bid Un alfonso Device with 7-19 daily. Use it y of Lancets 00:00: as [place] (ONE TOUCH 00 directed. [facility]) Kit May Branch substitute brand preferred by insurance metFORMIN 0 Yes [id number] 1000mg Take 1 Univers 1,000 mg 7-19 tablet by ity of tablet 00:00: mouth in [place] 00 the Medical morning Branch and 1 tablet in the evening. Take with meals. MUST BE SEEN FOR FURTHER REFILLS pantoprazol 2022-0 Yes [id number] 40mg Take 1 Univers e 40 mg EC 7-19 tablet by ity of tablet 00:00: mouth in [place] the Medical morning. Branch metoprolol 2022-0 Yes [id number] 25mg Take 1 U nivers tartrate 25 7-19 tablet by ity of mg tablet 00:00: mouth in [facility] [place] [facility] s the Medical morning Branch and 1 tablet in the evening. Blood-Gluco Yes [id number] Use as Univers se Meter 7-19 directed. ity of (ONETOUCH 00:00: May [place] VERIO FLEX 00 substitute Med ical START) Kit brand Branch preferred by insurance blood sugar 0 Yes [id number] Test bid Univers diagnostic 7-19 daily for ity of (ONETOUCH 00:00: diagnosis [place] VERIO TEST 00 code E11.9 Med ical STRIPS) May Branch strip substitute brand preferred by insurance Lancing 0 Yes [id number] Test bid Un alfonso Device with 7-19 daily. Use it y of Lancets 00:00: as [place] (ONE TOUCH 00 directed. [facility]) Kit May Branch substitute brand preferred by insurance metFORMIN 2022-0 Yes [id number] 1000mg Take 1 Univers 1,000 mg 7-19 tablet by ity of tablet 00:00: mouth in [place] the Medical morning Branch and 1 tablet in the evening. Take with meals. MUST BE SEEN FOR FURTHER REFILLS pantoprazol 2022-0 Yes [id number] 40mg Take 1 Univers e 40 mg EC 7-19 tablet by ity of tablet 00:00: mouth in [place] 00 the Medical morning. Branch metoprolol 2022-0 Yes [id number] 25mg Take 1 U nivers tartrate 25 7-19 tablet by ity of mg tablet 00:00: [place] in [place] the Medical morning Branch and 1 tablet in the evening. Blood-Gluco Yes [id number] Use as Univers se Meter 7-19 directed. ity of (ONETOUCH 00:00: May [place] VERIO FLEX 00 substitute Med ical START) Kit brand Branch preferred by insurance blood sugar 0 Yes [id number] Test bid Univers diagnostic 7-19 daily for ity of (ONETOUCH 00:00: diagnosis [place] as VERIO TEST 00 code E11.9 Med ical STRIPS) May Branch strip substitute brand preferred by insurance Lancing Yes [id number] Test bid Un alfonso Device with 7-19 daily. Use it y of Lancets 00:00: as [place] (ONE TOUCH 00 directed. Medi lula DELICA) Kit May Branch substitute brand preferred by insurance metFORMIN Yes [id number] 1000mg Take 1 Univers 1,000 mg 7-19 tablet by ity of tablet 00:00: mouth in the Medical morning Branch and 1 tablet in the evening. Take with meals. MUST BE SEEN FOR FURTHER REFILLS pantoprazol 0 Yes [id number] 40mg Take 1 Univers e 40 mg EC 7-19 tablet by ity of tablet 00:00: mouth in 00 the Medical morning. Branch metoprolol 0 Yes [id number] 25mg Take 1 U nivers tartrate 25 7-19 tablet by ity of mg tablet 00:00: [place] the Medical morning Branch and 1 tablet in the evening. Blood-Gluco 0 Yes [id number] Use as Univers se Meter 7-19 directed. ity of (ONETOUCH 00:00: May [place] VERIO FLEX 00 substitute Med ical START) Kit brand Branch preferred by insurance blood sugar 0 Yes [id number] Test bid Univers diagnostic 7-19 daily for ity of (ONETOUCH 00:00: diagnosis [place] VERIO TEST 00 code E11.9 Med ical STRIPS) May Branch strip substitute brand preferred by insurance Lancing 0 Yes [id number] Test bid Un alfonso Device with 7-19 daily. Use it y of Lancets 00:00: as [place] (ONE TOUCH 00 directed. Medi lula DELICA) Kit May Branch substitute brand preferred by insurance metFORMIN 2022-0 Yes [id number] 1000mg Take 1 [facility] 1,000 mg 7-19 tablet by ity of tablet 00:00: mouth in [place] 00 the Medical morning Branch and 1 tablet in the evening. Take with meals. MUST BE SEEN FOR FURTHER REFILLS pantoprazol Yes [id number] 40mg Take 1 [facility] e 40 mg EC 7-19 tablet by ity of tablet 00:00: mouth in [place] 00 the Medical morning. Branch metoprolol 2022-0 Yes [id number] 25mg Take 1 U nivers tartrate 25 7-19 tablet by ity of mg tablet 00:00: [place] the Medical morning Branch and 1 tablet in the evening. Blood-Gluco 2022-0 Yes [id number] Use as Univers se Meter 7-19 directed. ity of (ONETOUCH 00:00: May [place] VERIO FLEX 00 substitute Med ical START) Kit brand Branch preferred by insurance blood sugar 0 Yes [id number] Test bid [facility] diagnostic 7-19 daily for ity of (ONETOUCH 00:00: diagnosis [place] as VERIO TEST 00 code E11.9 Med ical STRIPS) May Branch strip substitute brand preferred by insurance Lancing Yes [id number] Test bid Un alfonso Device with 7-19 daily. Use it y of Lancets 00:00: as [place] (ONE TOUCH 00 directed. Medi lula DELICA) Kit May Branch substitute brand preferred by insurance metFORMIN Yes [id number] 1000mg Take 1 [facility] 1,000 mg 7-19 tablet by ity of tablet 00:00: mouth in [place] the Medical morning Branch and 1 tablet in the evening. Take with meals. MUST BE SEEN FOR FURTHER REFILLS pantoprazol 2022-0 Yes [id number] 40mg Take 1 [facility] e 40 mg EC 7-19 tablet by ity of tablet 00:00: mouth in [place] 00 the Medical morning. Branch metoprolol 2022- Yes [id number] 25mg Take 1 U nivers tartrate 25 7-19 tablet by ity of mg tablet 00:00: [place] the Medical morning Branch and 1 tablet in the evening. Blood-Gluco 2022-0 Yes [id number] Use as [facility] se Meter 7-19 directed. ity of (ONETOUCH 00:00: May [place] VERIO FLEX 00 substitute Med ical START) Kit brand Branch preferred by insurance blood sugar 2022-0 Yes [id number] Test bid [facility] diagnostic 7-19 daily for ity of (ONETOUCH 00:00: diagnosis [place] as VERIO TEST 00 code E11.9 Med ical STRIPS) May Branch strip substitute brand preferred by insurance Lancing Yes [id number] Test bid Un alfonso Device with 7-19 daily. Use it y of Lancets 00:00: as [place] (ONE TOUCH 00 directed. [facility] lula DELICA) Kit May Branch substitute brand preferred by insurance metFORMIN Yes [id number] 1000mg Take 1 [facility] 1,000 mg 7-19 tablet by ity of tablet 00:00: mouth in [place] the Medical morning Branch and 1 tablet in the evening. Take with meals. MUST BE SEEN FOR FURTHER REFILLS pantoprazol 0 Yes [id number] 40mg Take 1 [facility] e 40 mg EC 7-19 tablet by ity of tablet 00:00: mouth in [place] 00 the Medical morning. Branch metoprolol Yes [id number] 25mg Take 1 U nivers tartrate 25 7-19 tablet by ity of mg tablet 00:00: mouth in [facility] the Medical morning Branch and 1 tablet in the evening. Blood-Gluco Yes [id number] Use as [facility] se Meter 7-19 directed. ity of (ONETOUCH 00:00: May [place] VERIO FLEX 00 substitute Med ical START) Kit brand Branch preferred by insurance blood sugar 0 Yes [id number] Test bid [facility] diagnostic 7-19 daily for ity of (ONETOUCH 00:00: diagnosis [place] as VERIO TEST 00 code E11.9 Med ical STRIPS) May Branch strip substitute brand preferred by insurance Lancing Yes [id number] Test bid Un alfonso Device with 7-19 daily. Use it y of Lancets 00:00: as [place] (ONE TOUCH 00 directed. Medi lula DELICA) Kit May Branch substitute brand preferred by insurance metFORMIN Yes [id number] 1000mg Take 1 [facility] 1,000 mg 7-19 tablet by ity of tablet 00:00: mouth in [place] the Medical morning Branch and 1 tablet in the evening. Take with meals. MUST BE SEEN FOR FURTHER REFILLS pantoprazol 2022-0 Yes [id number] 40mg Take 1 [facility] e 40 mg EC 7-19 tablet by ity of tablet 00:00: mouth in [place] the Medical morning. Branch metoprolol 2022-0 Yes [id number] 25mg Take 1 U nivers tartrate 25 7-19 tablet by ity of mg tablet 00:00: mouth in [facility] the Medical morning Branch and 1 tablet in the evening. Blood-Gluco 2022-0 Yes [id number] Use as [facility] se Meter 7-19 directed. ity of (ONETOUCH 00:00: May [place] VERIO FLEX 00 substitute Med ical START) Kit brand Branch preferred by insurance blood sugar 2022-0 Yes [id number] Test bid [facility] diagnostic 7-19 daily for ity of (ONETOUCH 00:00: diagnosis [place] as VERIO TEST 00 code E11.9 Med ical STRIPS) May Branch strip substitute brand preferred by insurance Lancing Yes [id number] Test bid Un alfonso Device with 7-19 daily. Use it y of Lancets 00:00: as [place] (ONE TOUCH 00 directed. Medi lula DELICA) Kit May Branch substitute brand preferred by insurance metFORMIN 2022-0 Yes [id number] 1000mg Take 1 [facility] 1,000 mg 7-19 tablet by ity of tablet 00:00: mouth in [place] [address] the Medical morning Branch and 1 tablet in the evening. Take with meals. MUST BE SEEN FOR FURTHER REFILLS pantoprazol 2022-0 Yes [id number] 40mg Take 1 [facility] e 40 mg EC 7-19 tablet by ity of tablet 00:00: mouth in [place] the Medical morning. Branch metoprolol 2022-0 Yes [id number] 25mg Take 1 U nivers tartrate 25 7-19 tablet by ity of mg tablet 00:00: mouth in [facility] the Medical morning Branch and 1 tablet in the evening. Blood-Gluco 2022-0 Yes [id number] Use as [facility] se Meter 7-19 directed. ity of (ONETOUCH 00:00: May [place] VERIO FLEX 00 substitute Med ical START) Kit brand Branch preferred by insurance blood sugar 2022-0 Yes [id number] Test bid [facility] diagnostic 7-19 daily for ity of (ONETOUCH 00:00: diagnosis [place] as VERIO TEST 00 code E11.9 Med ical STRIPS) May Branch strip substitute brand preferred by insurance Lancing 2022-0 Yes [id number] Test bid Un alfonso Device with 7-19 daily. Use it y of Lancets 00:00: as [place] (ONE TOUCH 00 directed. [facility]) Kit May Branch substitute brand preferred by insurance metFORMIN 2022-0 Yes [id number] 1000mg Take 1 [facility] 1,000 mg 7-19 tablet by ity of tablet 00:00: mouth in [place] the Medical morning Branch and 1 tablet in the evening. Take with meals. MUST BE SEEN FOR FURTHER REFILLS pantoprazol 2022-0 Yes [id number] 40mg Take 1 [facility] e 40 mg EC 7-19 tablet by ity of tablet 00:00: mouth in [place] the morning. Branch metoprolol 2022-0 Yes [id number] 25mg Take 1 U nivers tartrate 25 7-19 tablet by ity of mg tablet 00:00: mouth in [facility] the morning Branch and 1 tablet in the evening. Blood-Gluco 0 Yes [id number] Use as [facility] se Meter 7-19 directed. ity of (ONETOUCH 00:00: May [place] VERIO FLEX 00 substitute Med ical START) Kit brand Branch preferred by insurance blood sugar 2022-0 Yes [id number] Test bid [facility] diagnostic 7-19 daily for ity of (ONETOUCH 00:00: diagnosis [place] as VERIO TEST 00 code E11.9 Med ical STRIPS) May Branch strip substitute brand preferred by insurance Lancing 0 Yes [id number] Test bid Un alfonso Device with 7-19 daily. Use it y of Lancets 00:00: as [place] (ONE TOUCH 00 directed. [facility]) Kit May Branch substitute brand preferred by insurance metFORMIN 2022-0 Yes [id number] 1000mg Take 1 [facility] 1,000 mg 7-19 tablet by ity of tablet 00:00: mouth in [place] the Medical morning Branch and 1 tablet in the evening. Take with meals. MUST BE SEEN FOR FURTHER REFILLS pantoprazol 2022-0 Yes [id number] 40mg Take 1 [facility] e 40 mg EC 7-19 tablet by ity of tablet 00:00: mouth in [place] 00 the morning. Branch metoprolol 2022-0 Yes [id number] 25mg Take 1 U nivers tartrate 25 7-19 tablet by ity of mg tablet 00:00: mouth in [facility] the Medical morning Branch and 1 tablet in the evening. Blood-Gluco 2022-0 Yes [id number] Use as [facility] se Meter 7-19 directed. ity of (ONETOUCH 00:00: May [place] VERIO FLEX 00 substitute Med ical START) Kit brand Branch preferred by insurance blood sugar Yes [id number] Test bid [facility] diagnostic 7-19 daily for ity of (ONETOUCH 00:00: diagnosis [place] as VERIO TEST 00 code E11.9 Med ical STRIPS) May Branch strip substitute brand preferred by insurance Lancing Yes [id number] Test bid Un alfon[place] Device with 7-19 daily. Use it y of Lancets 00:00: as [place] (ONE TOUCH 00 directed. Medi lula DELICA) Kit May Branch substitute brand preferred by insurance metFORMIN Yes [id number] 1000mg Take 1 [facility] 1,000 mg 7-19 tablet by ity of tablet 00:00: mouth in [place] the Medical morning Branch and 1 tablet in the evening. Take with meals. MUST BE SEEN FOR FURTHER REFILLS pantoprazol Yes [id number] 40mg Take 1 [facility] e 40 mg EC 7-19 tablet by ity of tablet 00:00: mouth in [place] the Medical morning. Branch metoprolol Yes [id number] 25mg Take 1 U nivers tartrate 25 7-19 tablet by ity of mg tablet 00:00: mouth in [facility] the Medical morning Branch and 1 tablet in the evening. Blood-Gluco Yes [id number] Use as [facility] se Meter 7-19 directed. ity of (ONETOUCH 00:00: May [place] VERIO FLEX 00 substitute Med ical START) Kit brand Branch preferred by insurance blood sugar Yes [id number] Test bid [facility] diagnostic 7-19 daily for ity of (ONETOUCH 00:00: diagnosis [place] as VERIO TEST 00 code E11.9 Med ical STRIPS) May Branch strip substitute brand preferred by insurance Lancing Yes [id number] Test bid Un [place] Device with 7-19 daily. Use it y of Lancets 00:00: as [place] (ONE TOUCH 00 directed. Medi lula DELICA) Kit May Branch substitute brand preferred by insurance metFORMIN Yes [id number] 1000mg Take 1 [facility] 1,000 mg 7-19 tablet by ity of tablet 00:00: mouth in the Medical morning Branch and 1 tablet in the evening. Take with meals. MUST BE SEEN FOR FURTHER REFILLS pantoprazol Yes [id number] 40mg Take 1 [facility] e 40 mg EC 7-19 tablet by ity of tablet 00:00: mouth in [place] 00 the Medical morning. Branch metoprolol Yes [id number] 25mg Take 1 U nivers tartrate 25 7-19 tablet by ity of mg tablet 00:00: [place] the Medical morning Branch and 1 tablet in the evening. Blood-Gluco 2022-0 Yes [id number] Use as [facility] se Meter 7-19 directed. ity of (ONETOUCH 00:00: May [place] VERIO FLEX 00 substitute Med ical START) Kit brand Branch preferred by insurance blood sugar 0 Yes [id number] Test bid [facility] diagnostic 7-19 daily for ity of (ONETOUCH 00:00: diagnosis [place] as VERIO TEST 00 code E11.9 Med ical STRIPS) May Branch strip substitute brand preferred by insurance Lancing Yes [id number] Test bid Un al[employer] Device with 7-19 daily. Use it y of Lancets 00:00: as [place] (ONE TOUCH 00 directed. Medi lula DELICA) Kit May Branch substitute brand preferred by insurance metFORMIN Yes [id number] 1000mg Take 1 [facility] 1,000 mg 7-19 tablet by ity of tablet 00:00: mouth in [place] 00 the Medical morning Branch and 1 tablet in the evening. Take with meals. MUST BE SEEN FOR FURTHER REFILLS pantoprazol 2022-0 Yes [id number] 40mg Take 1 [facility] e 40 mg EC 7-19 tablet by ity of tablet 00:00: mouth in [place] 00 the Medical morning. Branch metoprolol Yes [id number] 25mg Take 1 U nivers tartrate 25 7-19 tablet by ity of mg tablet 00:00: [place] the Medical morning Branch and 1 tablet in the evening. Blood-Gluco 2022-0 Yes [id number] Use as [facility] se Meter 7-19 directed. ity of (ONETOUCH 00:00: September [place] VERIO FLEX 00 substitute Med ical START) Kit brand Branch preferred by insurance blood sugar 2022-0 Yes [id number] Test bid [facility] diagnostic 7-19 daily for ity of (ONETOUCH 00:00: diagnosis [place] as VERIO TEST 00 code E11.9 Med ical STRIPS) May Branch strip substitute brand preferred by insurance Lancing Yes [id number] Test bid Un alfonso Device with 7-19 daily. Use it y of Lancets 00:00: as [place] (ONE TOUCH 00 directed. [facility]) Kit May Branch substitute brand preferred by insurance metFORMIN 0 Yes [id number] 1000mg Take 1 [facility] 1,000 mg 7-19 tablet by ity of tablet 00:00: mouth in [place] the Medical morning Branch and 1 tablet in the evening. Take with meals. MUST BE SEEN FOR FURTHER REFILLS pantoprazol Yes [id number] 40mg Take 1 [facility] e 40 mg EC 7-19 tablet by ity of tablet 00:00: mouth in [place] the Medical morning. Branch metoprolol Yes [id number] 25mg Take 1 U nivers tartrate 25 7-19 tablet by ity of mg tablet 00:00: mouth in [facility] the Medical morning Branch and 1 tablet in the evening. Blood-Gluco Yes [id number] Use as [facility] se Meter 7-19 directed. ity of (ONETOUCH 00:00: May [place] VERIO FLEX 00 substitute Med ical START) Kit brand Branch preferred by insurance blood sugar 0 Yes [id number] Test bid [facility] diagnostic 7-19 daily for ity of (ONETOUCH 00:00: diagnosis [place] as VERIO TEST 00 code E11.9 Med ical STRIPS) May Branch strip substitute brand preferred by insurance Lancing Yes [id number] Test bid Un alfonso Device with 7-19 daily. Use it y of Lancets 00:00: as [place] (ONE TOUCH 00 directed. [facility]) Kit May Branch substitute brand preferred by insurance metFORMIN 0 Yes [id number] 1000mg Take 1 [facility] 1,000 mg 7-19 tablet by ity of tablet 00:00: mouth in [place] the Medical morning Branch and 1 tablet in the evening. Take with meals. MUST BE SEEN FOR FURTHER REFILLS pantoprazol 2022-0 Yes [id number] 40mg Take 1 [facility] e 40 mg EC 7-19 tablet by ity of tablet 00:00: mouth in [place] the Medical morning. Branch metoprolol 2022-0 Yes [id number] 25mg Take 1 U nivers tartrate 25 7-19 tablet by ity of mg tablet 00:00: mouth in [facility] [place] [facility] the Medical morning Branch and 1 tablet in the evening. Blood-Gluco 2022-0 Yes [id number] Use as [facility] se Meter 7-19 directed. ity of (ONETOUCH 00:00: May [place] VERIO FLEX 00 substitute Med ical START) Kit brand Branch preferred by insurance blood sugar 2022-0 Yes [id number] Test bid [facility] diagnostic 7-19 daily for ity of (ONETOUCH 00:00: diagnosis [place] as VERIO TEST 00 code E11.9 Med ical STRIPS) May Branch strip substitute brand preferred by insurance Lancing Yes [id number] Test bid Un alfonso Device with 7-19 daily. Use it y of Lancets 00:00: as [place] (ONE TOUCH 00 directed. Medi lula DELICA) Kit May Branch substitute brand preferred by insurance metFORMIN 2022-0 Yes [id number] 1000mg Take 1 [facility] 1,000 mg 7-19 tablet by ity of tablet 00:00: mouth in the Medical morning Branch and 1 tablet in the evening. Take with meals. MUST BE SEEN FOR FURTHER REFILLS pantoprazol 2022-0 Yes [id number] 40mg Take 1 [facility] e 40 mg EC 7-19 tablet by ity of tablet 00:00: mouth in the Medical morning. Branch metoprolol 0 Yes [id number] 25mg Take 1 U nivers tartrate 25 7-19 tablet by ity of mg tablet 00:00: mouth in [facility] the Medical morning Branch and 1 tablet in the evening. Blood-Gluco 2022-0 Yes [id number] Use as Univers se Meter 7-19 directed. ity of (ONETOUCH 00:00: September [place] VERIO FLEX 00 substitute Med ical START) Kit brand Branch preferred by insurance blood sugar 2022-0 Yes [id number] Test bid [facility] diagnostic 7-19 daily for ity of (ONETOUCH 00:00: diagnosis [place] as VERIO TEST 00 code E11.9 Med ical STRIPS) May Branch strip substitute brand preferred by insurance Lancing 2022-0 Yes [id number] Test bid Un alfonso Device with 7-19 daily. Use it y of Lancets 00:00: as [place] (ONE TOUCH 00 directed. Medi lula DELICA) Kit May Branch substitute brand preferred by insurance metFORMIN 2022-0 Yes [id number] 1000mg Take 1 Univers 1,000 mg 7-19 tablet by ity of tablet 00:00: mouth in [place] 00 the Medical morning Branch and 1 tablet in the evening. Take with meals. MUST BE SEEN FOR FURTHER REFILLS pantoprazol 2022-0 Yes [id number] 40mg Take 1 [facility] e 40 mg EC 7-19 tablet by ity of tablet 00:00: mouth in [place] 00 the morning. Branch metoprolol 2022-0 Yes [id number] 25mg Take 1 U nivers tartrate 25 7-19 tablet by ity of mg tablet 00:00: mouth [place] the Medical morning Branch and 1 tablet in the evening. Blood-Gluco 2022-0 Yes [id number] Use as Univers se Meter 7-19 directed. ity of (ONETOUCH 00:00: September [place] VERIO FLEX 00 substitute Med ical START) Kit brand Branch preferred by insurance blood sugar 2022-0 Yes [id number] Test bid [facility] diagnostic 7-19 daily for ity of (ONETOUCH 00:00: diagnosis [place] as VERIO TEST 00 code E11.9 Med ical STRIPS) May Branch strip substitute brand preferred by insurance Lancing 2022-0 Yes [id number] Test bid Un [place] Device with 7-19 daily. Use it y of Lancets 00:00: as [place] (ONE TOUCH 00 directed. [facility] lula DELICA) Kit May Branch substitute brand preferred by insurance metFORMIN 2022-0 Yes [id number] 1000mg Take 1 Univers 1,000 mg 7-19 tablet by ity of tablet 00:00: mouth in [place] 00 the Medical morning Branch and 1 tablet in the evening. Take with meals. MUST BE SEEN FOR FURTHER REFILLS pantoprazol 2022-0 Yes [id number] 40mg Take 1 [facility] e 40 mg EC 7-19 tablet by ity of tablet 00:00: mouth in [place] 00 the morning. Branch metoprolol 2022-0 Yes [id number] 25mg Take 1 U nivers tartrate 25 7-19 tablet by ity of mg tablet 00:00: [place] the Medical morning Branch and 1 tablet in the evening. Blood-Gluco 2022-0 Yes [id number] Use as [facility] se Meter 7-19 directed. ity of (ONETOUCH 00:00: May [place] VERIO FLEX 00 substitute Med ical START) Kit brand Branch preferred by insurance blood sugar 0 Yes [id number] Test bid [facility] diagnostic 7-19 daily for ity of (ONETOUCH 00:00: diagnosis [place] as VERIO TEST 00 code E11.9 Med ical STRIPS) May Branch strip substitute brand preferred by insurance Lancing 0 Yes [id number] Test bid Un alfonso Device with 7-19 daily. Use it y of Lancets 00:00: as [place] (ONE TOUCH directed. [facility]) Kit May Branch substitute brand preferred by insurance metFORMIN Yes [id number] 1000mg Take 1 Univers 1,000 mg 7-19 tablet by ity of tablet 00:00: mouth in [place] the Medical morning Branch and 1 tablet in the evening. Take with meals. MUST BE SEEN FOR FURTHER REFILLS pantoprazol 0 Yes [id number] 40mg Take 1 [facility] e 40 mg EC 7-19 tablet by ity of tablet 00:00: mouth in [place] the Medical morning. Branch metoprolol Yes [id number] 25mg Take 1 U nivers tartrate 25 7-19 tablet by ity of mg tablet 00:00: mouth in [facility] the Medical morning Branch and 1 tablet in the evening. Blood-Gluco Yes [id number] Use as [facility] se Meter 7-19 directed. ity of (ONETOUCH 00:00: May [place] VERIO FLEX 00 substitute Med ical START) Kit brand Branch preferred by insurance blood sugar 0 Yes [id number] Test bid [facility] diagnostic 7-19 daily for ity of (ONETOUCH 00:00: diagnosis [place] as VERIO TEST 00 code E11.9 Med ical STRIPS) May Branch strip substitute brand preferred by insurance Lancing Yes [id number] Test bid Un alfonso Device with 7-19 daily. Use it y of Lancets 00:00: as [place] (ONE TOUCH 00 directed. Medi lula DELICA) Kit May Branch substitute brand preferred by insurance metFORMIN 0 Yes [id number] 1000mg Take 1 Univers 1,000 mg 7-19 tablet by ity of tablet 00:00: mouth in [place] the Medical morning Branch and 1 tablet in the evening. Take with meals. MUST BE SEEN FOR FURTHER REFILLS pantoprazol 2022-0 Yes [id number] 40mg Take 1 [facility] e 40 mg EC 7-19 tablet by ity of tablet 00:00: mouth in [place] the morning. Branch metoprolol 2022-0 Yes [id number] 25mg Take 1 U nivers tartrate 25 7-19 tablet by ity of mg tablet 00:00: mouth [place] the Medical morning Branch and 1 tablet in the evening. Blood-Gluco 2022-0 Yes [id number] Use as Univers se Meter 7-19 directed. ity of (ONETOUCH 00:00: May [place] VERIO FLEX 00 substitute Med ical START) Kit brand Branch preferred by insurance blood sugar 2022-0 Yes [id number] Test bid [facility] diagnostic 7-19 daily for ity of (ONETOUCH 00:00: diagnosis [place] as VERIO TEST 00 code E11.9 Med ical STRIPS) May Branch strip substitute brand preferred by insurance Lancing 2022-0 Yes [id number] Test bid Un [place]fon[place] Device with 7-19 daily. Use it y of Lancets 00:00: as [place] (ONE TOUCH 00 directed. Medi lula DELICA) Kit May Branch substitute brand preferred by insurance metFORMIN Yes [id number] 1000mg Take 1 Univers 1,000 mg 7-19 tablet by ity of tablet 00:00: mouth in [place] the Medical morning Branch and 1 tablet in the evening. Take with meals. MUST BE SEEN FOR FURTHER REFILLS pantoprazol 2022-0 Yes [id number] 40mg Take 1 Univers e 40 mg EC 7-19 tablet by ity of tablet 00:00: mouth in [place] the morning. Branch metoprolol 2022-0 Yes [id number] 25mg Take 1 U nivers tartrate 25 7-19 tablet by ity of mg tablet 00:00: [place] the Medical morning Branch and 1 tablet in the evening. Blood-Gluco 2022-0 Yes [id number] Use as Univers se Meter 7-19 directed. ity of (ONETOUCH 00:00: September [place] VERIO FLEX 00 substitute Med ical START) Kit brand Branch preferred by insurance blood sugar 2022-0 Yes [id number] Test bid [facility] diagnostic 7-19 daily for ity of (ONETOUCH 00:00: diagnosis [place] as VERIO TEST 00 code E11.9 Med ical STRIPS) May Branch strip substitute brand preferred by insurance Lancing Yes [id number] Test bid Un [place]fonso Device with 7-19 daily. Use it y of Lancets 00:00: as [place] (ONE TOUCH 00 directed. [facility]) Kit May Branch substitute brand preferred by insurance metFORMIN 0 Yes [id number] 1000mg Take 1 Univers 1,000 mg 7-19 tablet by ity of tablet 00:00: mouth in [place] the Medical morning Branch and 1 tablet in the evening. Take with meals. MUST BE SEEN FOR FURTHER REFILLS pantoprazol 2022-0 Yes [id number] 40mg Take 1 Univers e 40 mg EC 7-19 tablet by ity of tablet 00:00: mouth in [place] the Medical morning. Branch metoprolol 2022-0 Yes [id number] 25mg Take 1 U nivers tartrate 25 7-19 tablet by ity of mg tablet 00:00: mouth in [facility] the Medical morning Branch and 1 tablet in the evening. Blood-Gluco Yes [id number] Use as Univers se Meter 7-19 directed. ity of (ONETOUCH 00:00: May [place] VERIO FLEX 00 substitute Med ical START) Kit brand Branch preferred by insurance blood sugar 0 Yes [id number] Test bid [facility] diagnostic 7-19 daily for ity of (ONETOUCH 00:00: diagnosis [place] as VERIO TEST 00 code E11.9 Med ical STRIPS) May Branch strip substitute brand preferred by insurance Lancing Yes [id number] Test bid Un alfonso Device with 7-19 daily. Use it y of Lancets 00:00: as [place] (ONE TOUCH 00 directed. [facility]) Kit May Branch substitute brand preferred by insurance metFORMIN 0 Yes [id number] 1000mg Take 1 Univers 1,000 mg 7-19 tablet by ity of tablet 00:00: mouth in [place] the Medical morning Branch and 1 tablet in the evening. Take with meals. MUST BE SEEN FOR FURTHER REFILLS pantoprazol 2022-0 Yes [id number] 40mg Take 1 Univers e 40 mg EC 7-19 tablet by ity of tablet 00:00: mouth in [place] 00 the Medical morning. Branch metoprolol 2022-0 Yes [id number] 25mg Take 1 U nivers tartrate 25 7-19 tablet by ity of mg tablet 00:00: mouth in the Medical morning Branch and 1 tablet in the evening. Blood-Gluco 0 Yes [id number] Use as Univers se Meter 7-19 directed. ity of (ONETOUCH 00:00: September [place] VERIO FLEX 00 substitute Med ical START) Kit brand Branch preferred by insurance blood sugar 0 Yes [id number] Test bid [facility] diagnostic 7-19 daily for ity of (ONETOUCH 00:00: diagnosis [place] as VERIO TEST 00 code E11.9 Med ical STRIPS) May Branch strip substitute brand preferred by insurance Lancing Yes [id number] Test bid Un alfonso Device with 7-19 daily. Use it y of Lancets 00:00: as [place] (ONE TOUCH 00 directed. Medi lula DELICA) Kit May Branch substitute brand preferred by insurance metFORMIN 0 Yes [id number] 1000mg Take 1 Univers 1,000 mg 7-19 tablet by ity of tablet 00:00: mouth in the Medical morning Branch and 1 tablet in the evening. Take with meals. MUST BE SEEN FOR FURTHER REFILLS pantoprazol 0 Yes [id number] 40mg Take 1 Univers e 40 mg EC 7-19 tablet by ity of tablet 00:00: mouth in the Medical morning. Branch metoprolol 0 Yes [id number] 25mg Take 1 U nivers tartrate 25 7-19 tablet by ity of mg tablet 00:00: mouth in [place] the Medical morning Branch and 1 tablet in the evening. Blood-Gluco 0 Yes [id number] Use as Univers se Meter 7-19 directed. ity of (ONETOUCH 00:00: September [place] VERIO FLEX 00 substitute Med ical START) Kit brand Branch preferred by insurance blood sugar 0 Yes [id number] Test bid [facility] diagnostic 7-19 daily for ity of (ONETOUCH 00:00: diagnosis [place] as VERIO TEST 00 code E11.9 Med ical STRIPS) May Branch strip substitute brand preferred by insurance Lancing 0 Yes [id number] Test bid [facility] with 7-19 daily. Use it y of Lancets 00:00: as [place] (ONE TOUCH 00 directed. Medi lula DELICA) Kit [facility] substitute brand preferred by insurance omeprazole 0 Yes 20mg QD [facility]17 [facility] 20 MG 11:27: (20 mg Medical capsule 02 total) by Center mouth daily. montelukast 2023-0 Yes 10mg QD Take [address] [facility] (SINGULAIR) 7-17 tablet (10 [facility] 10 mg 11:27: mg total) Medical tablet 02 by mouth Center daily. losartan 2023-0 Yes 50mg QD Take [address] [facility] (COZAAR) 50 7-17 tablet (50 [facility] MG tablet 11:27: mg total) Med ical 02 by mouth Center daily. metoprolol 2023-0 Yes 25mg Q.5D Take 1 [facility] mcg/actuati (two) on inhaler times daily. pregabalin 3-0 Yes 200mg Take [address] [facility] (LYRICA) 7-17 capsule [facility] 200 MG 11:27: (200 mg Medical capsule 02 total) by Center mouth 2 (two) times daily as needed As needed for back pain. Max Daily Amount: 400 mg omeprazole 3-0 Yes 20mg QD Take 1 [facility] (PriLOSEC[facility]17 [facility] 20 MG 11:27: (20 mg Medical capsule 02 total) by Center mouth daily. montelukast 2023-0 Yes 10mg QD Take [address] [facility] (SINGULAIR) 7-17 tablet (10 [facility] 10 mg 11:27: mg total) Medical tablet 02 by mouth Center daily. losartan 2023-0 Yes 50mg QD Take [address] [facility] (COZAAR) 50 7-17 tablet (50 [facility] MG tablet 11:27: mg total) Med ical 02 by mouth Center daily. metoprolol 2023-0 Yes 25mg Q.5D Take [facility] tartrate [facility] (25 [facility] (LOPRESSOR) 11:27: mg total) M edical 25 MG 02 by mouth 2 Center tablet (two) times daily. budesonide- 2023-0 Yes maintenance 2{puff} Q.5D Inhale [address] [facility] formoteroL 7-17 therapy for puffs by [facility] (SYMBICORT) 11:27: asthma mouth via Medical 160-4.5 02 inhaler 2 Center mcg/actuati (two) on inhaler times daily. pregabalin 2023-0 Yes 200mg Take [address] [facility] (LYRICA) 7-17 capsule [facility] 200 MG 11:27: (200 mg Medical capsule 02 total) by Center mouth 2 (two) times daily as needed As needed for back pain. Max Daily Amount: 400 mg omeprazole 2023-0 Yes 20mg QD Take 1 [facility] (PriLOSEC[facility]-17 [facility] 20 MG 11:27: (20 mg Medical capsule 02 total) by Center mouth daily. montelukast 3-0 Yes 10mg QD Take [address] [facility] (SINGULAIR) 7-17 tablet (10 [facility] 10 mg 11:27: mg total) Medical tablet 02 by mouth Center daily. losartan 2023-0 Yes 50mg QD Take [address] [facility] (COZAAR) 50 7-17 tablet (50 [facility] MG tablet 11:27: mg total) Med ical 02 by mouth Center daily. metoprolol 3-0 Yes 25mg Q.5D Take [facility] tartrate [facility] (25 [facility] (LOPRESSOR) 11:27: mg total) M edical 25 MG 02 by mouth 2 Center tablet (two) times daily. budesonide- 2023-0 Yes maintenance 2{puff} Q.5D Inhale [address] [facility] formoteroL 7-17 therapy for puffs by [facility] (SYMBICORT) 11:27: asthma mouth via Medical 160-4.5 02 inhaler 2 Center mcg/actuati (two) on inhaler times daily. pregabalin 2023-0 Yes 200mg Take [address] [facility] (LYRICA) 7-17 capsule [facility] 200 MG 11:27: (200 mg Medical capsule 02 total) by Center mouth 2 (two) times daily as needed As needed for back pain. Max Daily Amount: 400 mg metFORMIN 2023-0 2023- No 1000mg Take [address] [facility] (GLUCOPHAGE 7-17 07-14 tablet [facility] ) 1000 MG 11:27: 00:00 (1,000 mg Me dical tablet 02 :00 total) by Center mouth 2 (two) times daily with breakfast and dinner. metFORMIN 3-0 2023- No 1000mg Take [address] [facility] (GLUCOPHAGE 7-17 07-14 tablet [facility] ) 1000 MG 11:27: 00:00 (1,000 mg Me dical tablet 02 :00 total) by Center mouth 2 (two) times daily with breakfast and dinner. metFORMIN 2022-0 202- No 1000mg Take [address] [facility] (GLUCOPHAGE 7-17 07-14 tablet [facility] ) 1000 MG 11:27: 00:00 (1,000 mg Me dical tablet 02 :00 total) by Center mouth 2 (two) times daily with breakfast and dinner. clopidogreL 2022-0 4- Yes 75mg QD Take [address] [facility] (PLAVIX) 75 7-17 07-16 tablet (75 [facility] mg tablet 00:00: 23:59 mg total) Me dical 00 :00 by mouth Center daily . clopidogreL 2022-0 4- Yes 75mg QD Take [address] [facility] (PLAVIX) 75 7-17 07-16 tablet (75 [facility] mg tablet 00:00: 23:59 mg total) Me dical 00 :00 by mouth Center daily . clopidogreL 2022-0 4- Yes 75mg QD Take [address] [facility] (PLAVIX) 75 7-17 07-16 tablet (75 [facility] mg tablet 00:00: 23:59 mg total) Me dical 00 :00 by mouth Center daily . clopidogreL 2023-0 Yes 75mg Take 1 [facility] 75 mg 7-16 tablet by [facility] of tablet 00:00: mouth in [place] 00 the Medical morning. Branch clopidogreL 2023-0 Yes 75mg Take 1 [facility] 75 mg 7-16 tablet by ity of tablet 00:00: mouth in [place] the Medical morning. Branch clopidogreL 2023-0 Yes 75mg Take 1 [facility] 75 mg 7-16 tablet by [facility]y of tablet 00:00: mouth in [place] the Medical morning. Branch clopidogreL 2023-0 Yes 75mg Take 1 [facility] 75 mg 7-16 tablet by ity of tablet 00:00: mouth in [place] the Medical morning. Branch clopidogreL 2023-0 Yes 75mg Take 1 [facility] 75 mg 7-16 tablet by ity of tablet 00:00: mouth in [place] the Medical morning. Branch clopidogreL 2023-0 Yes 75mg Take 1 [facility] 75 mg 7-16 tablet by ity of tablet 00:00: mouth in [place] the Medical morning. Branch clopidogreL 2023-0 Yes 75mg Take 1 [facility] 75 mg 7-16 tablet by ity of tablet 00:00: mouth in [place] the Medical morning. Branch clopidogreL 2023-0 Yes 75mg Take 1 [facility] 75 mg 7-16 tablet by [facility]y of tablet 00:00: mouth in [place] the Medical morning. Branch clopidogreL 2023-0 Yes 75mg Take 1 [facility] 75 mg 7-16 tablet by [facility]y of tablet 00:00: mouth in [place] the Medical morning. Branch clopidogreL 2023-0 Yes 75mg Take 1 [facility] 75 mg 7-16 tablet by ity of tablet 00:00: mouth in [place] the Medical morning. Branch clopidogreL 2023-0 Yes 75mg Take 1 [facility] 75 mg 7-16 tablet by ity of tablet 00:00: mouth in [place] the Medical morning. Branch clopidogreL 2023-0 Yes 75mg Take 1 [facility] 75 mg 7-16 tablet by ity of tablet 00:00: mouth in [place] the Medical morning. Branch clopidogreL 2023-0 Yes 75mg Take 1 [facility] 75 mg 7-16 tablet by ity of tablet 00:00: mouth in [place] the Medical morning. Branch clopidogreL 2023-0 Yes 75mg Take 1 [facility] 75 mg 7-16 tablet by ity of tablet 00:00: mouth in [place] the Medical morning. Branch clopidogreL 2023-0 Yes 75mg Take 1 [facility] 75 mg 7-16 tablet by ity of tablet 00:00: mouth in [place] the Medical morning. Branch clopidogreL 2023-0 Yes 75mg Take 1 [facility] 75 mg 7-16 tablet by ity of tablet 00:00: mouth in [place] the Medical morning. Branch clopidogreL 2023-0 Yes 75mg Take 1 [facility] 75 mg 7-16 tablet by [facility]y of tablet 00:00: mouth in [place] the Medical morning. Branch clopidogreL 2023-0 Yes 75mg Take 1 [facility] 75 mg 7-16 tablet by ity of tablet 00:00: mouth in [place] 00 the Medical morning. Branch clopidogreL 2023-0 Yes 75mg Take 1 [facility] 75 mg 7-16 tablet by ity of tablet 00:00: mouth in [place] 00 the Medical morning. Branch clopidogreL 2023-0 Yes 75mg Take 1 [facility] 75 mg 7-16 tablet by ity of tablet 00:00: mouth in [place] the Medical morning. Branch clopidogreL 2023-0 Yes 75mg Take 1 [facility] 75 mg 7-16 tablet by ity of tablet 00:00: mouth in [place] the Medical morning. Branch clopidogreL 2023-0 Yes 75mg Take 1 [facility] 75 mg 7-16 tablet by [facility]y of tablet 00:00: mouth in [place] the Medical morning. Branch clopidogreL 2023-0 Yes 75mg Take 1 [facility] 75 mg 7-16 tablet by ity of tablet 00:00: mouth in [place] the Medical morning. Branch clopidogreL 2023-0 Yes 75mg Take 1 [facility] 75 mg 7-16 tablet by ity of tablet 00:00: mouth in [place] the Medical morning. Branch clopidogreL 2023-0 Yes 75mg Take 1 [facility] 75 mg 7-16 tablet by ity of tablet 00:00: mouth in [place] the Medical morning. Branch clopidogreL 2023-0 Yes 75mg Take 1 [facility] 75 mg 7-16 tablet by [facility]y of tablet 00:00: mouth in [place] the Medical morning. Branch clopidogreL 2023-0 Yes 75mg Take 1 [facility] 75 mg 7-16 tablet by [facility]y of tablet 00:00: mouth in [place] the Medical morning. Branch clopidogreL 2023-0 Yes 75mg Take 1 [facility] 75 mg 7-16 tablet by ity of tablet 00:00: mouth in [place] the Medical morning. Branch clopidogreL 2023-0 Yes 75mg Take 1 [facility] 75 mg 7-16 tablet by [facility]y of tablet 00:00: mouth in [place] the Medical morning. Branch clopidogreL 2023-0 Yes 75mg Take 1 [facility] 75 mg 7-16 tablet by ity of tablet 00:00: mouth in [place] 00 the Medical morning. Branch clopidogreL 2023-0 Yes 75mg Take 1 [facility] 75 mg 7-16 tablet by ity of tablet 00:00: mouth in [place] 00 the Medical morning. Branch clopidogreL 2023-0 Yes 75mg Take 1 [facility] 75 mg 7-16 tablet by [facility]y of tablet 00:00: mouth in [place] 00 the Medical morning. Branch rosuvastati 2023-0 2024- Yes 20mg QD Take [address] [facility] (CRESTOR) 7-15 07-14 tablet (20 [facility] 20 MG 00:00: 23:59 mg total) Medica l tablet 00 :00 by mouth Center daily. rosuvastati 2023- Yes 20mg QD Take [address] [facility] (CRESTOR) 7-15 07-14 tablet (20 [facility] 20 MG 00:00: 23:59 mg total) Medica l tablet 00 :00 by mouth Center daily. rosuvastati 2023- Yes 20mg QD Take [address] [facility] (CRESTOR) 7-15 07-14 tablet (20 [facility] 20 MG 00:00: 23:59 mg total) Medica l tablet 00 :00 by mouth Center daily. rosuvastati 2022-0 Yes 20mg Take 1 [facility] 20 mg 7-14 tablet by ity of tablet 00:00: mouth at [place] [address] bedtime. Medical Branch rosuvastati 2022-0 Yes 20mg Take 1 [facility] 20 mg 7-14 tablet by ity of tablet 00:00: mouth at [place] [address] bedtime. Medical Branch rosuvastati 2022-0 Yes 20mg Take 1 [facility] 20 mg 7-14 tablet by ity of tablet 00:00: mouth at [place] [address] bedtime. Medical Branch rosuvastati 2022-0 Yes 20mg Take 1 [facility] 20 mg 7-14 tablet by ity of tablet 00:00: mouth at [place] [address] bedtime. Medical Branch rosuvastati 2022-0 Yes 20mg Take 1 [facility] 20 mg 7-14 tablet by ity of tablet 00:00: mouth at [place] [address] bedtime. Medical Branch rosuvastati 2022-0 Yes 20mg Take 1 [facility] 20 mg 7-14 tablet by ity of tablet 00:00: mouth at [place] [address] bedtime. Medical Branch rosuvastati 2022-0 Yes 20mg Take 1 [facility] 20 mg 7-14 tablet by ity of tablet 00:00: mouth at [place] [address] bedtime. Medical Branch rosuvastati 2022-0 Yes 20mg Take 1 [facility] 20 mg 7-14 tablet by ity of tablet 00:00: mouth at [place] [address] bedtime. Medical Branch rosuvastati 2023-0 Yes 20mg Take 1 [facility] 20 mg 7-14 tablet by ity of tablet 00:00: mouth at [place] [address] bedtime. Medical Branch rosuvastati 2023-0 Yes 20mg Take 1 [facility] 20 mg 7-14 tablet by ity of tablet 00:00: mouth at [place] bedtime. Medical Branch rosuvastati 2023-0 Yes 20mg Take 1 [facility] 20 mg 7-14 tablet by ity of tablet 00:00: mouth at [place] bedtime. Medical Branch rosuvastati 2023-0 Yes 20mg Take 1 [facility] 20 mg 7-14 tablet by ity of tablet 00:00: mouth at [place] bedtime. Medical Branch rosuvastati 2023-0 Yes 20mg Take 1 [facility] 20 mg 7-14 tablet by ity of tablet 00:00: mouth at [place] [address] bedtime. Medical Branch rosuvastati 2023-0 Yes 20mg Take 1 [facility] 20 mg 7-14 tablet by ity of tablet 00:00: mouth at [place] [address] bedtime. Medical Branch rosuvastati 2023-0 Yes 20mg Take 1 [facility] 20 mg 7-14 tablet by ity of tablet 00:00: mouth at [place] [address] bedtime. Medical Branch rosuvastati 2023-0 Yes 20mg Take 1 [facility] 20 mg 7-14 tablet by [facility]y of tablet 00:00: mouth at [place] [address] bedtime. Medical Branch rosuvastati 2023-0 Yes 20mg Take 1 [facility] 20 mg 7-14 tablet by ity of tablet 00:00: mouth at [place] [address] bedtime. Medical Branch rosuvastati 2023-0 Yes 20mg Take 1 [facility] 20 mg 7-14 tablet by ity of tablet 00:00: mouth at [place] [address] bedtime. Medical Branch rosuvastati 2023-0 Yes 20mg Take 1 [facility] 20 mg 7-14 tablet by ity of tablet 00:00: mouth at [place] [address] bedtime. Medical Branch rosuvastati 2023-0 Yes 20mg Take 1 [facility] 20 mg 7-14 tablet by ity of tablet 00:00: mouth at [place] [address] bedtime. Medical Branch rosuvastati 2023-0 Yes 20mg Take 1 [facility] 20 mg 7-14 tablet by ity of tablet 00:00: mouth at [place] [address] bedtime. Medical Branch rosuvastati 3-0 Yes 20mg Take 1 [facility] 20 mg 7-14 tablet by ity of tablet 00:00: mouth at [place] [address] bedtime. Medical Branch rosuvastati 3-0 Yes 20mg Take 1 [facility] 20 mg 7-14 tablet by ity of tablet 00:00: mouth at [place] [address] bedtime. Medical Branch rosuvastati 2022-0 Yes 20mg Take 1 [facility] 20 mg 7-14 tablet by [facility]y of tablet 00:00: mouth at [place] [address] bedtime. Medical Branch rosuvastati 2022-0 Yes 20mg Take 1 [facility] 20 mg 7-14 tablet by ity of tablet 00:00: mouth at [place] [address] bedtime. Medical Branch rosuvastati 2022-0 Yes 20mg Take 1 [facility] 20 mg 7-14 tablet by ity of tablet 00:00: mouth at [place] [address] bedtime. Medical Branch rosuvastati 2022-0 Yes 20mg Take 1 [facility] 20 mg 7-14 tablet by ity of tablet 00:00: mouth at [place] [address] bedtime. Medical Branch rosuvastati 2022-0 Yes 20mg Take 1 [facility] 20 mg 7-14 tablet by ity of tablet 00:00: mouth at [place] [address] bedtime. Medical Branch rosuvastati 3-0 Yes 20mg Take 1 [facility] 20 mg 7-14 tablet by ity of tablet 00:00: mouth at [place] [address] bedtime. Medical Branch rosuvastati 3-0 Yes 20mg Take 1 [facility] 20 mg 7-14 tablet by ity of tablet 00:00: mouth at [place] [address] bedtime. Medical Branch rosuvastati 3-0 Yes 20mg Take 1 [facility] 20 mg 7-14 tablet by ity of tablet 00:00: mouth at [place] [address] bedtime. Medical Branch rosuvastati 3-0 Yes 20mg Take 1 [facility] 20 mg 7-14 tablet by [facility]y of tablet 00:00: mouth at [place] [address] bedtime. Medical Branch HYDROcodone 2022-0 Yes TAKE 1 [facility] -acetaminop 7-07 TABLET BY [facility] of hen 10-325 00:00: MOUTH [place] mg tablet 00 TWICE A Medical DAY Branch NEEDED FOR PAIN MAX 2/DAY HYDROcodone 0 Yes TAKE 1 [facility] -acetaminop 7-07 TABLET BY ity of hen 10-325 00:00: MOUTH [place] mg tablet 00 TWICE A Medical DAY Branch NEEDED FOR PAIN MAX 2/DAY HYDROcodone 2022-0 Yes TAKE 1 [facility] -acetaminop 7-07 TABLET BY ity of hen 10-325 00:00: MOUTH [place] mg tablet 00 TWICE A Medical DAY Branch NEEDED FOR PAIN MAX 2/DAY HYDROcodone 0 Yes TAKE 1 [facility] -acetaminop 7-07 TABLET BY ity of hen 10-325 00:00: MOUTH [place] mg tablet 00 TWICE A Medical DAY Branch NEEDED FOR PAIN MAX 2/DAY HYDROcodone 0 Yes TAKE 1 [facility] -acetaminop 7-07 TABLET BY ity of hen 10-325 00:00: MOUTH [place] mg tablet 00 TWICE A Medical DAY Branch NEEDED FOR PAIN MAX 2/DAY HYDROcodone 0 Yes TAKE 1 [facility] -acetaminop 7-07 TABLET BY ity of hen 10-325 00:00: MOUTH [place] mg tablet 00 TWICE A Medical DAY Branch NEEDED FOR PAIN MAX 2/DAY HYDROcodone 0 Yes TAKE 1 [facility] -acetaminop 7-07 [...] Branch NEEDED FOR PAIN MAX 2/DAY HYDROcodone 0 Yes TAKE 1 [facility] -acetaminop 7-07 TABLET BY ity of hen 10-325 00:00: MOUTH [place] mg tablet 00 TWICE A Medical DAY Branch NEEDED FOR PAIN MAX 2/DAY HYDROcodone 0 Yes TAKE 1 [facility] -acetaminop 7-07 TABLET BY ity of hen 10-325 00:00: MOUTH [place] mg tablet 00 TWICE A Medical DAY Branch NEEDED FOR PAIN MAX 2/DAY HYDROcodone 0 Yes TAKE 1 [facility] -acetaminop 7-07 TABLET BY ity of hen 10-325 00:00: MOUTH [place] mg tablet 00 TWICE A Medical DAY Branch NEEDED FOR PAIN MAX 2/DAY HYDROcodone 0 Yes TAKE 1 [facility] -acetaminop 7-07 TABLET BY ity of hen 10-325 00:00: MOUTH [place] mg tablet 00 TWICE A Medical DAY Branch NEEDED FOR PAIN MAX 2/DAY HYDROcodone 0 Yes TAKE 1 [facility] -acetaminop 7-07 TABLET BY ity of hen 10-325 00:00: MOUTH [place] mg tablet 00 TWICE A Medical DAY Branch NEEDED FOR PAIN MAX 2/DAY HYDROcodone 0 Yes TAKE 1 [facility] -acetaminop 7-07 [...] Branch NEEDED FOR PAIN MAX 2/DAY HYDROcodone 0 Yes TAKE 1 [facility] -acetaminop 7-07 TABLET BY ity of hen 10-325 00:00: MOUTH [place] mg tablet 00 TWICE A Medical DAY Branch NEEDED FOR PAIN MAX 2/DAY HYDROcodone 0 Yes TAKE 1 [facility] -acetaminop 7-07 TABLET BY ity of hen 10-325 00:00: MOUTH [place] mg tablet 00 TWICE A Medical DAY Branch NEEDED FOR PAIN MAX 2/DAY HYDROcodone 0 Yes TAKE 1 [facility] -acetaminop 7-07 TABLET BY ity of hen 10-325 00:00: MOUTH [place] mg tablet 00 TWICE A Medical DAY Branch NEEDED FOR PAIN MAX 2/DAY HYDROcodone 0 Yes TAKE 1 [facility] -acetaminop 7-07 [...] PAIN MAX 2/DAY losartan 50 2022-0 Yes [id number] 50mg Take 1 [facility] tablet 7-03 tablet by [facility]y o f 00:00: mouth in [place] 00 the Medical morning. Branch losartan 50 2022-0 Yes [id number] 50mg Take 1 [facility] mg tablet 7-03 tablet by ity o f 00:00: mouth in [place] 00 the Medical morning. Branch MONTELUKAST 2022-0 Yes [id number] TAKE 1 [facility] 10 mg 7-03 TABLET BY [facility]y of tablet 00:00: MOUTH IN [place] 00 THE Medical MORNING Branch losartan 50 2022-0 Yes [id number] 50mg Take 1 [facility] mg tablet 7-03 tablet by ity o f 00:00: mouth in [place] 00 the Medical morning. Branch MONTELUKAST 2022-0 Yes [id number] TAKE 1 [facility] 10 mg 7-03 TABLET BY [facility] of tablet 00:00: MOUTH IN [place] 00 THE Medical MORNING Branch losartan 50 2022-0 Yes [id number] 50mg Take 1 [facility] mg tablet 7-03 tablet by ity o f 00:00: mouth in [place] 00 the Medical morning. Branch MONTELUKAST 2022-0 Yes [id number] TAKE 1 [facility] 10 mg 7-03 TABLET BY [facility]y of tablet 00:00: MOUTH IN [place] 00 THE Medical MORNING Branch losartan 50 2022-0 Yes [id number] 50mg Take 1 [facility] mg tablet 7-03 tablet by ity o f 00:00: mouth in [place] 00 the Medical morning. Branch MONTELUKAST 2022-0 Yes [id number] TAKE 1 [facility] 10 mg 7-03 TABLET BY [facility] of tablet 00:00: MOUTH IN [place] 00 THE Medical MORNING Branch losartan 50 2022-0 Yes [id number] 50mg Take 1 [facility] mg tablet 7-03 tablet by ity o f 00:00: mouth in [place] 00 the Medical morning. Branch MONTELUKAST 2022-0 Yes [id number] TAKE 1 [facility] 10 mg 7-03 TABLET BY [facility]y of tablet 00:00: MOUTH IN [place] 00 THE Medical MORNING Branch losartan 50 2022-0 Yes [id number] 50mg Take 1 [facility] mg tablet 7-03 tablet by ity o f 00:00: mouth in [place] 00 the Medical morning. Branch MONTELUKAST 2022-0 Yes [id number] TAKE 1 [facility] 10 mg 7-03 TABLET BY [facility] of tablet 00:00: MOUTH IN [place] 00 THE Medical MORNING Branch losartan 50 2022-0 Yes [id number] 50mg Take 1 [facility] mg tablet 7-03 tablet by ity o f 00:00: mouth in [place] 00 the Medical morning. Branch MONTELUKAST 2022-0 Yes [id number] TAKE 1 [facility] 10 mg 7-03 TABLET BY [facility] of tablet 00:00: MOUTH IN [place] 00 THE Medical MORNING Branch losartan 50 2022-0 Yes [id number] 50mg Take 1 [facility] mg tablet 7-03 tablet by ity o f 00:00: mouth in [place] 00 the Medical morning. Branch MONTELUKAST 2022-0 Yes [id number] TAKE 1 [facility] 10 mg 7-03 TABLET BY [facility] of tablet 00:00: MOUTH IN [place] 00 THE Medical MORNING Branch losartan 50 2022-0 Yes [id number] 50mg Take 1 [facility] mg tablet 7-03 tablet by ity o f 00:00: mouth in [place] 00 the Medical morning. Branch MONTELUKAST 2022-0 Yes [id number] TAKE 1 [facility] 10 mg 7-03 TABLET BY [facility] of tablet 00:00: MOUTH IN [place] 00 THE Medical MORNING Branch losartan 50 2022-0 Yes [id number] 50mg Take 1 [facility] mg tablet 7-03 tablet by ity o f 00:00: mouth in [place] 00 the Medical morning. Branch MONTELUKAST 2022-0 Yes [id number] TAKE 1 [facility] 10 mg 7-03 TABLET BY [facility] of tablet 00:00: MOUTH IN [place] 00 THE Medical MORNING Branch losartan 50 2022-0 Yes [id number] 50mg Take 1 [facility] mg tablet 7-03 tablet by ity o f 00:00: mouth in [place] 00 the Medical morning. Branch MONTELUKAST 2022-0 Yes [id number] TAKE 1 [facility] 10 mg 7-03 TABLET BY [facility] of tablet 00:00: MOUTH IN [place] 00 THE Medical MORNING Branch losartan 50 2022-0 Yes [id number] 50mg Take 1 [facility] mg tablet 7-03 tablet by ity o f 00:00: mouth in [place] 00 the Medical morning. Branch MONTELUKAST 2022-0 Yes [id number] TAKE 1 [facility] 10 mg 7-03 TABLET BY [facility] of tablet 00:00: MOUTH IN [place] 00 THE Medical MORNING Branch losartan 50 2022-0 Yes [id number] 50mg Take 1 [facility] mg tablet 7-03 tablet by ity o f 00:00: mouth in [place] 00 the Medical morning. Branch MONTELUKAST 2022-0 Yes [id number] TAKE 1 [facility] 10 mg 7-03 TABLET BY [facility] of tablet 00:00: MOUTH IN [place] 00 THE Medical MORNING Branch losartan 50 2022-0 Yes [id number] 50mg Take 1 [facility] mg tablet 7-03 tablet by ity o f 00:00: mouth in [place] 00 the Medical morning. Branch MONTELUKAST 2022-0 Yes [id number] TAKE 1 [facility] 10 mg 7-03 TABLET BY [facility] of tablet 00:00: MOUTH IN [place] 00 THE Medical MORNING Branch losartan 50 2022-0 Yes [id number] 50mg Take 1 [facility] mg tablet 7-03 tablet by [facility]y o f 00:00: mouth in [place] 00 the Medical morning. Branch MONTELUKAST 2022-0 Yes [id number] TAKE 1 [facility] 10 mg 7-03 TABLET BY [facility] of tablet 00:00: MOUTH IN [place] 00 THE Medical MORNING Branch losartan 50 2022-0 Yes [id number] 50mg Take 1 [facility] mg tablet 7-03 tablet by ity o f 00:00: mouth in [place] 00 the Medical morning. Branch MONTELUKAST 2022-0 Yes [id number] TAKE 1 [facility] 10 mg 7-03 TABLET BY [facility] of tablet 00:00: MOUTH IN [place] 00 THE Medical MORNING Branch losartan 50 2022-0 Yes [id number] 50mg Take 1 [facility] mg tablet 7-03 tablet by ity o f 00:00: mouth in [place] 00 the Medical morning. Branch MONTELUKAST 2022-0 Yes [id number] TAKE 1 [facility] 10 mg 7-03 TABLET BY [facility] of tablet 00:00: MOUTH IN [place] 00 THE Medical MORNING Branch losartan 50 2022-0 Yes [id number] 50mg Take 1 [facility] mg tablet 7-03 tablet by ity o f 00:00: mouth in [place] 00 the Medical morning. Branch MONTELUKAST 2022-0 Yes [id number] TAKE 1 [facility] 10 mg 7-03 TABLET BY [facility] of tablet 00:00: MOUTH IN [place] 00 THE Medical MORNING Branch losartan 50 2022-0 Yes [id number] 50mg Take 1 [facility] mg tablet 7-03 tablet by ity o f 00:00: mouth in [place] 00 the Medical morning. Branch MONTELUKAST 2022-0 Yes [id number] TAKE 1 [facility] 10 mg 7-03 TABLET BY [facility] of tablet 00:00: MOUTH IN [place] 00 THE Medical MORNING Branch losartan 50 2022-0 Yes [id number] 50mg Take 1 [facility] mg tablet 7-03 tablet by ity o f 00:00: mouth in [place] 00 the Medical morning. Branch MONTELUKAST 2022-0 Yes [id number] TAKE 1 [facility] 10 mg 7-03 TABLET BY [facility] of tablet 00:00: MOUTH IN [place] 00 THE Medical MORNING Branch losartan 50 2022-0 Yes [id number] 50mg Take 1 [facility] mg tablet 7-03 tablet by ity o f 00:00: mouth in [place] 00 the Medical morning. Branch MONTELUKAST 2022-0 Yes [id number] TAKE 1 [facility] 10 mg 7-03 TABLET BY [facility] of tablet 00:00: MOUTH IN [place] 00 THE Medical MORNING Branch losartan 50 2022-0 Yes [id number] 50mg Take 1 [facility] mg tablet 7-03 tablet by ity o f 00:00: mouth in [place] 00 the Medical morning. Branch MONTELUKAST 2022-0 Yes [id number] TAKE 1 [facility] 10 mg 7-03 TABLET BY [facility] of tablet 00:00: MOUTH IN [place] 00 THE Medical MORNING Branch losartan 50 2022-0 Yes [id number] 50mg Take 1 [facility] mg tablet 7-03 tablet by ity o f 00:00: mouth in [place] 00 the Medical morning. Branch MONTELUKAST 2022-0 Yes [id number] TAKE 1 [facility] 10 mg 7-03 TABLET BY [facility] of tablet 00:00: MOUTH IN [place] 00 THE Medical MORNING Branch losartan 50 2022-0 Yes [id number] 50mg Take 1 [facility] mg tablet 7-03 tablet by ity o f 00:00: mouth in [place] 00 the Medical morning. Branch MONTELUKAST 2022-0 Yes [id number] TAKE 1 [facility] 10 mg 7-03 TABLET BY [facility] of tablet 00:00: MOUTH IN [place] 00 THE Medical MORNING Branch losartan 50 2022-0 Yes [id number] 50mg Take 1 [facility] mg tablet 7-03 tablet by [facility]y o f 00:00: mouth in [place] 00 the Medical morning. Branch losartan 50 2022-0 Yes [id number] 50mg Take 1 [facility] mg tablet 7-03 tablet by [facility] o f 00:00: mouth in [place] 00 the Medical morning. Branch losartan 50 2022-0 Yes [id number] 50mg Take 1 [facility] mg tablet 7-03 tablet by [facility] o f 00:00: mouth in [place] 00 the Medical morning. Branch losartan 50 3-0 Yes [id number] 50mg Take 1 [facility] mg tablet 7-03 tablet by [facility] o f 00:00: mouth in [place] 00 the Medical morning. Branch losartan 50 2022-0 Yes [id number] 50mg Take 1 [facility] mg tablet 7-03 tablet by [facility] o f 00:00: mouth in [place] 00 the Medical morning. Branch losartan 50 2022-0 Yes [id number] 50mg Take 1 [facility] mg tablet 7-03 tablet by [facility] o f 00:00: mouth in [place] 00 the Medical morning. Branch losartan 50 2022-0 Yes [id number] 50mg Take 1 [facility] mg tablet 7-03 tablet by [facility] o f 00:00: mouth in [place] 00 the Medical morning. Branch losartan 50 2022-0 Yes [id number] 50mg Take 1 [facility] mg tablet 7-03 tablet by [facility] o f 00:00: mouth in [place] 00 the Medical morning. Branch losartan 50 2022-0 Yes [id number] 50mg Take 1 [facility] mg tablet 7-03 tablet by [facility] o f 00:00: mouth in [place] 00 the Medical morning. Branch losartan 50 2022-0 Yes [id number] 50mg Take 1 [facility] mg tablet 7-03 tablet by [facility]y o f 00:00: mouth in [place] 00 the Medical morning. Branch losartan 50 2022-0 Yes [id number] 50mg Take 1 [facility] mg tablet 7-03 tablet by ity o f 00:00: mouth in [place] 00 the Medical morning. Branch losartan 50 2022-0 Yes [id number] 50mg Take 1 [facility] mg tablet 7-03 tablet by ity o f 00:00: mouth in [place] 00 the Medical morning. Branch losartan 50 3-0 Yes [id number] 50mg Take 1 [facility] mg tablet 7-03 tablet by ity o f 00:00: mouth in [place] 00 the Medical morning. Branch losartan 50 2022-0 Yes [id number] 50mg Take 1 [facility] mg tablet 7-03 tablet by ity o f 00:00: mouth in [place] 00 the Medical morning. Branch MONTELUKAST 2022-0 2023- No [id number] TAKE 1 [facility] 10 mg 7-03 08-10 TABLET BY ity of tablet 00:00: 00:00 MOUTH IN [place] 00 :00 THE Medical MORNING Branch MONTELUKAST 2022- No [id number] TAKE 1 [facility] 10 mg 7-03 08-10 TABLET BY ity of tablet 00:00: 00:00 MOUTH IN [place] 00 :00 THE Medical MORNING Branch MONTELUKAST 0 2022- No [id number] TAKE 1 [facility] 10 mg 7-03 08-10 TABLET BY ity of tablet 00:00: 00:00 MOUTH IN [place] 00 :00 THE Medical MORNING Branch MONTELUKAST 0 2022- No [id number] TAKE 1 [facility] 10 mg 7-03 08-10 TABLET BY ity of tablet 00:00: 00:00 MOUTH IN [place] 00 :00 THE [facility] MORNING Branch ketorolac No 30mg 30 mg, Unive rs (TORADOL) 10-28 Slow IV ity of injection 23:30: 22:27 [place], [place] 30 mg 00 :00 ONCE, 1 Medical dose, On Branch 10/28/22 at 1830, GARY sulfamethox 2022- No 1{tbl} 1 tablet, Univers azole-trime 10-28 Oral, ity of thoprim 22:30: 22:26 ONCE, 1 [place] (BACTRIM 00 :00 dose, On Medical DS) 800-160 [facility] mg per 10/28/22 at tablet 1 1730, tablet GARY
Re ason for Anti-Infec tive: Documented Infection< br>Documen carey Infection Site: Urine
D uration of Therapy: 10 days vancomycin No 1000mg 1,000 mg, Univers (VANCOCIN) 10-28 IV ity of 1,000 mg in 21:30: 22:21 [place], [place] NaCl 0.9% 00 :00 ONCE, 1 Medical (NS) 250 mL dose, On [facility] VIAL-MATE [place] IV 10/28/22 at piggyback 1630, Administer over 60 Minutes, 250 mL
Reas on for Anti-Infec tive: Documented Infection< br>Documen carey Infection Site: Urine<br&g t;Duration of Therapy: Other (see Comments) morpHINE (4 2022-0 2022- No 4mg 4 mg, Slow [facility] mg/mL) 10-2818 IV [place], ity of injection 4 19:00: 18:56 ONCE, 1 [place] mg 00 :00 dose, On Medical [facility] 10/28/22 at 1400, STAT ondansetron 0 2022- No 4mg 4 mg, Slow [facility] (ZOFRAN 10-28 IV [place], ity of (PF)) 16:00: 15:57 ONCE, 1 [place] injection 4 00 :00 dose, On Medi lula mg [place] Branch 10/28/22 at 1100, GARY morpHINE (4 0 2022- No 4mg 4 mg, Slow [facility] mg/mL) 10-2818 IV [place], ity of injection 4 16:00: 15:57 ONCE, 1 [place] mg 00 :00 dose, On [facility] 10/28/22 at 1100, STAT sulfamethox 2022-0 Yes [id number] 1{tbl} Take 1 [facility] azole-trime 6-18 tablet by ity of thoprim 00:00: mouth [place] 800-160 mg 00 every 12 Medic al per tablet (twelve) Branc h hours. gabapentin 2022-0 Yes [id number] 100mg Take 1 [facility] 100 mg 6-18 capsule by ity of capsule 00:00: mouth in [place] 00 the Medical morning Branch and 1 capsule at noon and 1 capsule in the evening. ketorolac 2022-0 Yes [id number] 10mg Take 1 U nivers 10 mg 6-18 tablet by ity of tablet 00:00: mouth [place] 00 every 6 Medical (six) Branch hours as needed for Pain (scale 4-6). sulfamethox 2022-0 Yes [id number] 1{tbl} Take 1 [facility] azole-trime 6-18 tablet by ity of thoprim 00:00: mouth [place] 800-160 mg 00 every 12 Medic al per tablet (twelve) Branc h hours. gabapentin 3-0 Yes [id number] 100mg Take 1 [facility] 100 mg 6-18 capsule by ity of capsule 00:00: mouth in [place] 00 the Medical morning Branch and 1 capsule at noon and 1 capsule in the evening. ketorolac 2022-0 Yes [id number] 10mg Take 1 U nivers 10 mg 6-18 tablet by ity of tablet 00:00: mouth [place] 00 every 6 Medical (six) Branch hours as needed for Pain (scale 4-6). sulfamethox 2023-0 Yes [id number] 1{tbl} Take 1 [facility] azole-trime 6-18 tablet by ity of thoprim 00:00: mouth [place] 800-160 mg 00 every 12 Medic al per tablet (twelve) Branc h hours. gabapentin 2023-0 Yes [id number] 100mg Take 1 [facility] 100 mg 6-18 capsule by ity of capsule 00:00: mouth in [place] 00 the Medical morning Branch and 1 capsule at noon and 1 capsule in the evening. ketorolac 2023-0 Yes [id number] 10mg Take 1 U nivers 10 mg 6-18 tablet by ity of tablet 00:00: mouth [place] 00 every 6 Medical (six) Branch hours as needed for Pain (scale 4-6). sulfamethox 2023-0 Yes 1{tbl} Take 1 [facility] azole-trime 6-18 tablet by ity of thoprim 00:00: mouth [place] 800-160 mg 00 every 12 Medic al per tablet (twelve) Branc h hours. gabapentin 2023-0 Yes [id number] 100mg Take 1 [facility] 100 mg 6-18 capsule by ity of capsule 00:00: mouth in [place] 00 the Medical morning Branch and 1 capsule at noon and 1 capsule in the evening. ketorolac 2023-0 Yes [id number] 10mg Take 1 U nivers 10 mg 6-18 tablet by ity of tablet 00:00: mouth [place] 00 every 6 Medical (six) Branch hours as needed for Pain (scale 4-6). sulfamethox 2023-0 Yes [id number] 1{tbl} Take 1 [facility] azole-trime 6-18 tablet by ity of thoprim 00:00: mouth [place] 800-160 mg 00 every 12 Medic al per tablet (twelve) Branc h hours. gabapentin 2023-0 Yes [id number] 100mg Take 1 [facility] 100 mg 6-18 capsule by ity of capsule 00:00: mouth in [place] 00 the Medical morning Branch and 1 capsule at noon and 1 capsule in the evening. ketorolac 2023-0 Yes [id number] 10mg Take 1 U nivers 10 mg 6-18 tablet by ity of tablet 00:00: mouth [place] 00 every 6 Medical (six) Branch hours as needed for Pain (scale 4-6). sulfamethox 2023-0 Yes [id number] 1{tbl} Take 1 [facility] azole-trime 6-18 tablet by ity of thoprim 00:00: mouth [place] 800-160 mg 00 every 12 Medic al per tablet (twelve) Branc h hours. gabapentin 2022-0 Yes [id number] 100mg Take 1 [facility] 100 mg 6-18 capsule by ity of capsule 00:00: mouth in [place] 00 the Medical morning Branch and 1 capsule at noon and 1 capsule in the evening. ketorolac 2022-0 Yes [id number] 10mg Take 1 U nivers 10 mg 6-18 tablet by ity of tablet 00:00: mouth [place] 00 every 6 Medical (six) Branch hours as needed for Pain (scale 4-6). sulfamethox 2022-0 Yes [id number] 1{tbl} Take 1 [facility] azole-trime 6-18 tablet by ity of thoprim 00:00: mouth [place] 800-160 mg 00 every 12 Medic al per tablet (twelve) Branc h hours. gabapentin 2022-0 Yes [id number] 100mg Take 1 [facility] 100 mg 6-18 capsule by ity of capsule 00:00: mouth in [place] 00 the Medical morning Branch and 1 capsule at noon and 1 capsule in the evening. ketorolac 2022-0 Yes [id number] 10mg Take 1 U nivers 10 mg 6-18 tablet by ity of tablet 00:00: mouth [place] 00 every 6 Medical (six) Branch hours as needed for Pain (scale 4-6). gabapentin 2022-0 2022- No [id number] 100mg Take 1 [facility] 100 mg 6-18 07-19 capsule by ity of capsule 00:00: 00:00 mouth in [place] 00 :00 the Medical morning Branch and 1 capsule at noon and 1 capsule in the evening. gabapentin 202-0 2022- No [id number] 100mg Take 1 [facility] 100 mg 6-18 07-19 capsule by ity of capsule 00:00: 00:00 mouth in [place] 00 :00 the Medical morning Branch and 1 capsule at noon and 1 capsule in the evening. gabapentin 2023-0 2022- No [id number] 100mg Take 1 [facility] 100 mg 6-18 07-19 capsule by ity of capsule 00:00: 00:00 mouth in [place] 00 :00 the [facility] and 1 capsule at noon and 1 capsule in the evening. gabapentin 2023-0 3- No [id number] 100mg Take 1 [facility] 100 mg 6-18 07-19 capsule by ity of capsule 00:00: 00:00 mouth in [place] 00 :00 the [facility] and 1 capsule at noon and 1 capsule in the evening. ketorolac 2023-0 3- No [id number] 10mg Take 1 [facility] 10 mg 6-18 06-18 tablet by ity of tablet 00:00: 00:00 mouth [place] 00 :00 every 6 Medical (six) Branch hours as needed for Pain (scale 4-6). pregabalin 2023-0 Yes 75mg Take 1 Unive rs 75 mg 6-06 capsule by ity of capsule 00:00: mouth in [address] and 1 capsule at noon and 1 capsule in the evening. pregabalin 2023-0 Yes 75mg Take 1 Unive rs 75 mg 6-06 capsule by ity of capsule 00:00: mouth in [address] and 1 capsule at noon and 1 capsule in the evening. pregabalin 2023-0 Yes 75mg Take 1 Unive rs 75 mg 6-06 capsule by ity of capsule 00:00: mouth in [address] and 1 capsule at noon and 1 capsule in the evening. pregabalin 2023-0 Yes 75mg Take 1 Unive rs 75 mg 6-06 capsule by ity of capsule 00:00: mouth in [address] and 1 capsule at noon and 1 capsule in the evening. pregabalin 2023-0 Yes 75mg Take 1 Unive rs 75 mg 6-06 capsule by ity of capsule 00:00: mouth in [address] and 1 capsule at noon and 1 capsule in the evening. pregabalin 2023-0 Yes 75mg Take 1 Unive rs 75 mg 6-06 capsule by ity of capsule 00:00: mouth in [address] and 1 capsule at noon and 1 capsule in the evening. pregabalin 2023-0 Yes 75mg Take 1 Unive rs 75 mg 6-06 capsule by ity of capsule 00:00: mouth in [address] morning [place] and 1 capsule at noon and 1 capsule in the evening. pregabalin 2023-0 Yes 75mg Take 1 Unive rs 75 mg 6-06 capsule by ity of capsule 00:00: mouth in [place] [address] the [facility] morning [place] and 1 capsule at noon and 1 capsule in the evening. pregabalin 2023-0 Yes 75mg Take 1 Unive rs 75 mg 6-06 capsule by ity of capsule 00:00: mouth in [address] morning [place] and 1 capsule at noon and 1 capsule in the evening. pregabalin 2023-0 Yes 75mg Take 1 Unive rs 75 mg 6-06 capsule by ity of capsule 00:00: mouth in [address] morning [place] and 1 capsule at noon and 1 capsule in the evening. pregabalin 2023-0 Yes 75mg Take 1 Unive rs 75 mg 6-06 capsule by ity of capsule 00:00: mouth in [address] and 1 capsule at noon and 1 capsule in the evening. pregabalin 2023-0 Yes 75mg Take 1 Unive rs 75 mg 6-06 capsule by ity of capsule 00:00: mouth in [address] and 1 capsule at noon and 1 capsule in the evening. pregabalin 2023-0 Yes 75mg Take 1 Unive rs 75 mg 6-06 capsule by ity of capsule 00:00: mouth in [address] and 1 capsule at noon and 1 capsule in the evening. pregabalin 2023-0 Yes 75mg Take 1 Unive rs 75 mg 6-06 capsule by ity of capsule 00:00: mouth in [address] and 1 capsule at noon and 1 capsule in the evening. pregabalin 2023-0 Yes 75mg Take 1 Unive rs 75 mg 6-06 capsule by ity of capsule 00:00: mouth in [address] morning [place] and 1 capsule at noon and 1 capsule in the evening. pregabalin 2023-0 Yes 75mg Take 1 Unive rs 75 mg 6-06 capsule by ity of capsule 00:00: mouth in [address] morning [place] and 1 capsule at noon and 1 capsule in the evening. pregabalin 2023-0 Yes 75mg Take 1 Unive rs 75 mg 6-06 capsule by ity of capsule 00:00: mouth in [address] morning [place] and 1 capsule at noon and 1 capsule in the evening. pregabalin 2023-0 Yes 75mg Take 1 Unive rs 75 mg 6-06 capsule by ity of capsule 00:00: mouth in [address] morning [place] and 1 capsule at noon and 1 capsule in the evening. pregabalin 2023-0 Yes 75mg Take 1 Unive rs 75 mg 6-06 capsule by ity of capsule 00:00: mouth in [address] morning [place] and 1 capsule at noon and 1 capsule in the evening. pregabalin 2023-0 Yes 75mg Take 1 Unive rs 75 mg 6-06 capsule by ity of capsule 00:00: mouth in [address] and 1 capsule at noon and 1 capsule in the evening. pregabalin 2023-0 Yes 75mg Take 1 Unive rs 75 mg 6-06 capsule by ity of capsule 00:00: mouth in [address] and 1 capsule at noon and 1 capsule in the evening. pregabalin 2023-0 Yes 75mg Take 1 Unive rs 75 mg 6-06 capsule by ity of capsule 00:00: mouth in [address] and 1 capsule at noon and 1 capsule in the evening. pregabalin 2023-0 Yes 75mg Take 1 Unive rs 75 mg 6-06 capsule by ity of capsule 00:00: mouth in [address] morning [place] and 1 capsule at noon and 1 capsule in the evening. pregabalin 2023-0 Yes 75mg Take 1 Unive rs 75 mg 6-06 capsule by ity of capsule 00:00: mouth in [address] morning [place] and 1 capsule at noon and 1 capsule in the evening. pregabalin 2023-0 Yes 75mg Take 1 Unive rs 75 mg 6-06 capsule by ity of capsule 00:00: mouth in [address] and 1 capsule at noon and 1 capsule in the evening. pregabalin 2023-0 Yes 75mg Take 1 Unive rs 75 mg 6-06 capsule by ity of capsule 00:00: mouth in [address] and 1 capsule at noon and 1 capsule in the evening. pregabalin 2023-0 Yes 75mg Take 1 Unive rs 75 mg 6-06 capsule by ity of capsule 00:00: mouth in [place] [address] the Medical morning Branch and 1 capsule at noon and 1 capsule in the evening. pregabalin 2023-0 Yes 75mg Take 1 Unive rs 75 mg 6-06 capsule by ity of capsule 00:00: mouth in [place] [address] the Medical morning Branch and 1 capsule at noon and 1 capsule in the evening. pregabalin 2023-0 Yes 75mg Take 1 Unive rs 75 mg 6-06 capsule by ity of capsule 00:00: mouth in [place] [address] the [facility] morning Branch and 1 capsule at noon and 1 capsule in the evening. pregabalin 2023-0 Yes 75mg Take 1 Unive rs 75 mg 6-06 capsule by ity of capsule 00:00: mouth in [place] [address] the [facility] morning Branch and 1 capsule at noon and 1 capsule in the evening. pregabalin 2023-0 Yes 75mg Take 1 Unive rs 75 mg 6-06 capsule by ity of capsule 00:00: mouth in [place] [address] the [facility] morning [place] and 1 capsule at noon and 1 capsule in the evening. pregabalin 2023-0 Yes 75mg Take 1 Unive rs 75 mg 6-06 capsule by ity of capsule 00:00: mouth in [place] [address] the [facility] morning Branch and 1 capsule at noon and 1 capsule in the evening. omeprazole 2023-0 Yes [id number] 20mg Take 1 [facility] 20 mg 6-02 capsule by ity of capsule 00:00: mouth in [place] the morning. Branch MUST BE SEEN FOR FURTHER REFILLS omeprazole 2023-0 Yes [id number] 20mg Take 1 [facility] 20 mg 6-02 capsule by ity of capsule 00:00: mouth in [place] the morning. Branch MUST BE SEEN FOR FURTHER REFILLS montelukast 2023-0 Yes [id number] 10mg Take 1 [facility] 10 mg 6-02 tablet by ity of tablet 00:00: mouth in [place] the morning. Branch MUST BE SEEN FOR FURTHER REFILLS omeprazole 2023-0 Yes [id number] 20mg Take 1 [facility] 20 mg 6-02 capsule by ity of capsule 00:00: mouth in [place] the morning. Branch MUST BE SEEN FOR FURTHER REFILLS montelukast 2023-0 Yes [id number] 10mg Take 1 [facility] 10 mg 6-02 tablet by ity of tablet 00:00: mouth in [place] the Medical morning. Branch MUST BE SEEN FOR FURTHER REFILLS omeprazole 3-0 Yes [id number] 20mg Take 1 [facility] 20 mg 6-02 capsule by ity of capsule 00:00: mouth in [place] the Medical morning. Branch MUST BE SEEN FOR FURTHER REFILLS montelukast 2022-0 Yes [id number] 10mg Take 1 [facility] 10 mg 6-02 tablet by ity of tablet 00:00: mouth in [place] the Medical morning. Branch MUST BE SEEN FOR FURTHER REFILLS omeprazole 3-0 Yes [id number] 20mg Take 1 [facility] 20 mg 6-02 capsule by ity of capsule 00:00: mouth in [place] the Medical morning. Branch MUST BE SEEN FOR FURTHER REFILLS montelukast 2022-0 Yes [id number] 10mg Take 1 [facility] 10 mg 6-02 tablet by ity of tablet 00:00: mouth in [place] the Medical morning. Branch MUST BE SEEN FOR FURTHER REFILLS omeprazole 2022-0 Yes [id number] 20mg Take 1 [facility] 20 mg 6-02 capsule by ity of capsule 00:00: mouth in [place] the Medical morning. Branch MUST BE SEEN FOR FURTHER REFILLS montelukast 2022-0 Yes [id number] 10mg Take 1 [facility] 10 mg 6-02 tablet by ity of tablet 00:00: mouth in [place] the Medical morning. Branch MUST BE SEEN FOR FURTHER REFILLS omeprazole 3-0 Yes [id number] 20mg Take 1 [facility] 20 mg 6-02 capsule by ity of capsule 00:00: mouth in [place] the Medical morning. Branch MUST BE SEEN FOR FURTHER REFILLS omeprazole 3-0 Yes [id number] 20mg Take 1 [facility] 20 mg 6-02 capsule by ity of capsule 00:00: mouth in [place] the Medical morning. Branch MUST BE SEEN FOR FURTHER REFILLS omeprazole 3-0 Yes [id number] 20mg Take 1 [facility] 20 mg 6-02 capsule by ity of capsule 00:00: mouth in [place] the Medical morning. Branch MUST BE SEEN FOR FURTHER REFILLS omeprazole 3-0 Yes [id number] 20mg Take 1 [facility] 20 mg 6-02 capsule by ity of capsule 00:00: mouth in [place] 00 the Medical morning. Branch MUST BE SEEN FOR FURTHER REFILLS omeprazole 2022-0 Yes [id number] 20mg Take 1 [facility] 20 mg 6-02 capsule by ity of capsule 00:00: mouth in [place] 00 the Medical morning. Branch MUST BE SEEN FOR FURTHER REFILLS omeprazole 2022-0 2022- No [id number] 20mg Take 1 [facility] 20 mg 6-02 07-19 capsule by ity of capsule 00:00: 00:00 mouth in [place] 00 :00 the Medical morning. Branch MUST BE SEEN FOR FURTHER REFILLS omeprazole 2022-0 2022- No [id number] 20mg Take 1 [facility] 20 mg 6-02 -19 capsule by ity of capsule 00:00: 00:00 mouth in [place] 00 :00 the Medical morning. Branch MUST BE SEEN FOR FURTHER REFILLS omeprazole 2022-0 2022- No [id number] 20mg Take 1 [facility] 20 mg 6-02 -19 capsule by ity of capsule 00:00: 00:00 mouth in [place] 00 :00 the Medical morning. Branch MUST BE SEEN FOR FURTHER REFILLS omeprazole 2022-0 2022- No [id number] 20mg Take 1 [facility] 20 mg 6-02 -19 capsule by ity of capsule 00:00: 00:00 mouth in [place] 00 :00 the Medical morning. Branch MUST BE SEEN FOR FURTHER REFILLS montelukast 2022-2022- No [id number] 10mg Take 1 [facility] 10 mg 6-06 19-03 tablet by ity of tablet 00:00: 00:00 mouth in [place] 00 :00 the Medical morning. Branch MUST BE SEEN FOR FURTHER REFILLS metFORMIN 2022-0 Yes [id number] 1000mg Take 1 [facility] 1,000 mg 4-26 tablet by ity of tablet 00:00: mouth in [place] the morning Branch and 1 tablet in the evening. Take with meals. MUST BE SEEN FOR FURTHER REFILLS metFORMIN 2022-0 Yes [id number] 1000mg Take 1 [facility] 1,000 mg 4-26 tablet by ity of tablet 00:00: mouth in [place] the morning Branch and 1 tablet in the evening. Take with meals. MUST BE SEEN FOR FURTHER REFILLS metFORMIN 2022-0 Yes [id number] 1000mg Take 1 [facility] 1,000 mg 4-26 tablet by ity of tablet 00:00: mouth in [address] and 1 tablet in the evening. Take with meals. MUST BE SEEN FOR FURTHER REFILLS metFORMIN 2023-0 Yes [id number] 1000mg Take 1 [facility] 1,000 mg 4-26 tablet by ity of tablet 00:00: mouth in [address] and 1 tablet in the evening. Take with meals. MUST BE SEEN FOR FURTHER REFILLS metFORMIN 2023-0 Yes [id number] 1000mg Take 1 [facility] 1,000 mg 4-26 tablet by ity of tablet 00:00: mouth in [address] and 1 tablet in the evening. Take with meals. MUST BE SEEN FOR FURTHER REFILLS metFORMIN 2023-0 Yes [id number] 1000mg Take 1 [facility] 1,000 mg 4-26 tablet by ity of tablet 00:00: mouth in [address] and 1 tablet in the evening. Take with meals. MUST BE SEEN FOR FURTHER REFILLS metFORMIN 2023-0 Yes [id number] 1000mg Take 1 [facility] 1,000 mg 4-26 tablet by ity of tablet 00:00: mouth in [address] and 1 tablet in the evening. Take with meals. MUST BE SEEN FOR FURTHER REFILLS metFORMIN 2023-0 Yes [id number] 1000mg Take 1 [facility] 1,000 mg 4-26 tablet by ity of tablet 00:00: mouth in [address] and 1 tablet in the evening. Take with meals. MUST BE SEEN FOR FURTHER REFILLS metFORMIN 2023-0 Yes [id number] 1000mg Take 1 [facility] 1,000 mg 4-26 tablet by ity of tablet 00:00: mouth in [address] and 1 tablet in the evening. Take with meals. MUST BE SEEN FOR FURTHER REFILLS metFORMIN 2023-0 Yes [id number] 1000mg Take 1 [facility] 1,000 mg 4-26 tablet by ity of tablet 00:00: mouth in [address] and 1 tablet in the evening. Take with meals. MUST BE SEEN FOR FURTHER REFILLS metFORMIN 2023-0 Yes [id number] 1000mg Take 1 [facility] 1,000 mg 4-26 tablet by ity of tablet 00:00: mouth in [address] and 1 tablet in the evening. Take with meals. MUST BE SEEN FOR FURTHER REFILLS metFORMIN 2023-0 Yes [id number] 1000mg Take 1 [facility] 1,000 mg 4-26 tablet by ity of tablet 00:00: mouth in [place] 00 the [facility] morning [place] and 1 tablet in the evening. Take with meals. MUST BE SEEN FOR FURTHER REFILLS metFORMIN 2022-0 Yes [id number] 1000mg Take 1 [facility] 1,000 mg 4-26 tablet by ity of tablet 00:00: mouth in [place] [address] the [facility] morning [place] and 1 tablet in the evening. Take with meals. MUST BE SEEN FOR FURTHER REFILLS metFORMIN 2022-0 Yes [id number] 1000mg Take 1 [facility] 1,000 mg 4-26 tablet by ity of tablet 00:00: mouth in [place] [address] the [facility] and 1 tablet in the evening. Take with meals. MUST BE SEEN FOR FURTHER REFILLS metFORMIN 2022-0 2022- No [id number] 1000mg Take 1 Univers 1,000 mg 4-26 07-19 tablet by ity o f tablet 00:00: 00:00 mouth in [place] 00 :00 the [facility] and 1 tablet in the evening. Take with meals. MUST BE SEEN FOR FURTHER REFILLS metFORMIN 2022-0 2022- No [id number] 1000mg Take 1 Univers 1,000 mg 4-26 07-19 tablet by ity o f tablet 00:00: 00:00 mouth in [place] 00 :00 the [facility] and 1 tablet in the evening. Take with meals. MUST BE SEEN FOR FURTHER REFILLS metFORMIN 2022-0 2022- No [id number] 1000mg Take 1 [facility] 1,000 mg 4-26 07-19 tablet by ity o f tablet 00:00: 00:00 mouth in [place] 00 :00 the [facility] and 1 tablet in the evening. Take with meals. MUST BE SEEN FOR FURTHER REFILLS metFORMIN 2022-0 2022- No [id number] 1000mg Take 1 Univers 1,000 mg 4-26 07-19 tablet by ity o f tablet 00:00: 00:00 mouth in [place] 00 :00 [facility] and 1 tablet in the evening. Take with meals. MUST BE SEEN FOR FURTHER REFILLS fluticasone 2022-0 Yes [id number] 1{spray Use 1 [facility] propionate 4-21 } [place] in ity o f 50 00:00: each [place] mcg/actuati 00 nostril in [place] on nasal the Branch spray morning and 1 [place] in the evening. fluticasone 2023-0 Yes [id number] 1{spray Use 1 [facility] propionate 4-21 } [place] in ity o f 50 00:00: each [place] mcg/actuati 00 nostril in [place] dical on nasal the Branch spray morning and 1 [place] in the evening. fluticasone 0 Yes [id number] 1{spray Use 1 [facility] propionate 4-21 } [place] in ity o f 50 00:00: each [place] mcg/actuati 00 nostril in [place] dical on nasal the Branch spray morning and 1 [place] in the evening. fluticasone 0 Yes [id number] 1{spray Use 1 [facility] propionate 4-21 } [place] in ity o f 50 00:00: each [place] mcg/actuati 00 nostril in Me dical on nasal the Branch spray morning and 1 [place] in the evening. fluticasone Yes [id number] 1{spray Use 1 [facility] propionate 4-21 } [place] in ity o f 50 00:00: each [place] mcg/actuati 00 nostril in Me dical on nasal the Branch spray morning and 1 [place] in the evening. fluticasone Yes [id number] 1{spray Use 1 [facility] propionate 4-21 } [place] in ity o f 50 00:00: each [place] mcg/actuati 00 nostril in Me dical on nasal the Branch spray morning and 1 [place] in the evening. fluticasone Yes [id number] 1{spray Use 1 [facility] propionate 4-21 } [place] in ity o f 50 00:00: each [place] mcg/actuati 00 nostril in Me dical on nasal the Branch spray morning and 1 [place] in the evening. fluticasone 0 Yes [id number] 1{spray Use 1 [facility] propionate 4-21 } [place] in ity o f 50 00:00: each [place] mcg/actuati 00 nostril in Me dical on nasal the Branch spray morning and 1 [place] in the evening. fluticasone 0 Yes [id number] 1{spray Use 1 [facility] propionate 4-21 } [place] in ity o f 50 00:00: each [place] mcg/actuati 00 nostril in Me dical on nasal the Branch spray morning and 1 [place] in the evening. fluticasone 0 Yes [id number] 1{spray Use 1 [facility] propionate 4-21 } [place] in ity o f 50 00:00: each [place] mcg/actuati 00 nostril in Me dical on nasal the Branch spray morning and 1 [place] in the evening. fluticasone 0 Yes [id number] 1{spray Use 1 [facility] propionate 4-21 } [place] in ity o f 50 00:00: each [place] mcg/actuati 00 nostril in Me dical on nasal the Branch spray morning and 1 [place] in the evening. fluticasone 2022-0 Yes [id number] 1{spray Use 1 [facility] propionate 4-21 } [place] in ity o f 50 00:00: each [place] mcg/actuati 00 nostril in Me dical on nasal the Branch spray morning and 1 [place] in the evening. fluticasone 0 Yes [id number] 1{spray Use 1 [facility] propionate 4-21 } [place] in ity o f 50 00:00: each [place] mcg/actuati 00 nostril in Me dical on nasal the Branch spray morning and 1 [place] in the evening. fluticasone 0 Yes [id number] 1{spray Use 1 [facility] propionate 4-21 } [place] in ity o f 50 00:00: each [place] mcg/actuati 00 nostril in Me dical on nasal the Branch spray morning and 1 [place] in the evening. fluticasone 0 Yes [id number] 1{spray Use 1 [facility] propionate 4-21 } [place] in [facility]y o f 50 00:00: each [place] mcg/actuati 00 nostril in Me dical on nasal the Branch spray morning and 1 [place] in the evening. fluticasone 0 Yes [id number] 1{spray Use 1 [facility] propionate 4-21 } [place] in [facility] o f 50 00:00: each [place] mcg/actuati 00 nostril in Me dical on nasal the Branch spray morning and 1 [place] in the evening. fluticasone 2022-0 Yes [id number] 1{spray Use 1 [facility] propionate 4-21 } [place] in [facility] o f 50 00:00: each [place] mcg/actuati 00 nostril in Me dical on nasal the Branch spray morning and 1 [place] in the evening. fluticasone 2022-0 Yes [id number] 1{spray Use 1 [facility] propionate 4-21 } [place] in [facility] o f 50 00:00: each [place] mcg/actuati 00 nostril in Me dical on nasal the Branch spray morning and 1 [place] in the evening. fluticasone 0 Yes [id number] 1{spray Use 1 [facility] propionate 4-21 } [place] in [facility] o f 50 00:00: each [place] mcg/actuati 00 nostril in Me dical on nasal the Branch spray morning and 1 [place] in the evening. fluticasone 0 Yes [id number] 1{spray Use 1 [facility] propionate 4-21 } [place] in [facility] o f 50 00:00: each [place] mcg/actuati 00 nostril in Me dical on nasal the Branch spray morning and 1 [place] in the evening. fluticasone 0 Yes [id number] 1{spray Use 1 [facility] propionate 4-21 } [place] in [facility] o f 50 00:00: each [place] mcg/actuati 00 nostril in Me dical on nasal the Branch spray morning and 1 [place] in the evening. fluticasone 0 Yes [id number] 1{spray Use 1 [facility] propionate 4-21 } [place] in [facility] o f 50 00:00: each [place] mcg/actuati 00 nostril in Me dical on nasal the Branch spray morning and 1 [place] in the evening. fluticasone Yes [id number] 1{spray Use 1 [facility] propionate 4-21 } [place] in [facility] o f 50 00:00: each [place] mcg/actuati 00 nostril in Me dical on nasal the Branch spray morning and 1 [place] in the evening. fluticasone 0 Yes [id number] 1{spray Use 1 [facility] propionate 4-21 } [place] in [facility] o f 50 00:00: each [place] mcg/actuati 00 nostril in Me dical on nasal the Branch spray morning and 1 [place] in the evening. fluticasone 2022-0 Yes [id number] 1{spray Use 1 [facility] propionate 4-21 } [place] in [facility] o f 50 00:00: each [place] mcg/actuati 00 nostril in Me dical on nasal the Branch spray morning and 1 [place] in the evening. fluticasone 2022-0 Yes [id number] 1{spray Use 1 [facility] propionate 4-21 } [place] in [facility] o f 50 00:00: each [place] mcg/actuati 00 nostril in Me dical on nasal the Branch spray morning and 1 [place] in the evening. fluticasone 0 Yes [id number] 1{spray Use 1 [facility] propionate 4-21 } [place] in [facility] o f 50 00:00: each [place] mcg/actuati 00 nostril in Me dical on nasal the Branch spray morning and 1 [place] in the evening. fluticasone 0 Yes [id number] 1{spray Use 1 [facility] propionate 4-21 } [place] in it[facility] o f 50 00:00: each [place] mcg/actuati 00 nostril in Me dical on nasal the Branch spray morning and 1 [place] in the evening. fluticasone 0 Yes [id number] 1{spray Use 1 [facility] propionate 4-21 } [place] in [facility] o f 50 00:00: each [place] mcg/actuati 00 nostril in Me dical on nasal the Branch spray morning and 1 [place] in the evening. fluticasone 0 Yes [id number] 1{spray Use 1 [facility] propionate 4-21 } [place] in [facility] o f 50 00:00: each [place] mcg/actuati 00 nostril in Me dical on nasal the Branch spray morning and 1 [place] in the evening. fluticasone Yes [id number] 1{spray Use 1 [facility] propionate 4-21 } [place] in [facility] o f 50 00:00: each [place] mcg/actuati 00 nostril in Me dical on nasal the Branch spray morning and 1 [place] in the evening. fluticasone 0 Yes [id number] 1{spray Use 1 [facility] propionate 4-21 } [place] in [facility] o f 50 00:00: each [place] mcg/actuati 00 nostril in Me dical on nasal the Branch spray morning and 1 [place] in the evening. fluticasone 2022-0 Yes [id number] 1{spray Use 1 [facility] propionate 4-21 } [place] in [facility] f 50 00:00: each [place] mcg/actuati 00 nostril in Me dical on nasal the Branch spray morning and 1 [place] in the evening. fluticasone 2022-0 Yes [id number] 1{spray Use 1 [facility] propionate 4-21 } [place] in [facility] o f 50 00:00: each [place] mcg/actuati 00 nostril in Me dical on nasal the Branch spray morning and 1 [place] in the evening. fluticasone 0 Yes [id number] 1{spray Use 1 [facility] propionate 4-21 } [place] in it o 50 00:00: each [place] mcg/actuati 00 nostril in Me dical on nasal the Branch spray morning and 1 [place] in the evening. fluticasone 2022-0 Yes [id number] 1{spray Use 1 [facility] propionate 4-21 } [place] in it o [facility] 00:00: each [place] mcg/actuati 00 nostril in Me dical on nasal the Branch spray morning and 1 [place] in the evening. fluticasone 0 Yes [id number] 1{spray Use 1 [facility] propionate 4-21 } [place] in [facility] 00:00: each [place] mcg/actuati 00 nostril in Me dical on nasal the Branch spray morning and 1 [place] in the evening. fluticasone 2022-0 Yes [id number] 1{spray Use 1 [facility] propionate 4-21 } [place] in [facility] 00:00: each [place] mcg/actuati 00 nostril in Me dical on nasal the Branch spray morning and 1 [place] in the evening. fluticasone 0 Yes [id number] 1{spray Use 1 [facility] propionate 4-21 } [place] in [facility] 00:00: each [place] mcg/actuati 00 nostril in Me dical on nasal the Branch spray morning and 1 [place] in the evening. fluticasone 0 Yes [id number] 1{spray Use 1 [facility] propionate 4-21 } [place] in [facility] 00:00: each [place] mcg/actuati 00 nostril in Me dical on nasal the Branch spray morning and 1 [place] in the evening. fluticasone 2022-0 Yes [id number] 1{spray Use 1 [facility] propionate 4-21 } [place] in it o 50 00:00: each [place] mcg/actuati 00 nostril in Me dical on nasal the Branch spray morning and 1 [place] in the evening. fluticasone 2022-0 Yes [id number] 1{spray Use 1 [facility] propionate 4-21 } [place] in it o f 50 00:00: each [place] mcg/actuati 00 nostril in Me dical on nasal the Branch spray morning and 1 [place] in the evening. fluticasone 2022-0 Yes [id number] 1{spray Use 1 [facility] propionate 4-21 } [place] in [facility] o 50 00:00: each [place] mcg/actuati 00 nostril in Me dical on nasal the Branch spray morning and 1 [place] in the evening. fluticasone 2022-0 Yes [id number] 1{spray Use 1 [facility] propionate 4-21 } [place] in it o [facility] 00:00: each [place] mcg/actuati 00 nostril in Me dical on nasal the Branch spray morning and 1 [place] in the evening. fluticasone 2022-0 Yes [id number] 1{spray Use 1 [facility] propionate 4-21 } [place] in [facility] 00:00: each [place] mcg/actuati 00 nostril in Me dical on nasal the Branch spray morning and 1 [place] in the evening. fluticasone 2022-0 Yes [id number] 1{spray Use 1 [facility] propionate 4-21 } [place] in [facility] 00:00: each [place] mcg/actuati 00 nostril in Me dical on nasal the Branch spray morning and 1 [place] in the evening. fluticasone 2022-0 Yes [id number] 1{spray Use 1 [facility] propionate 4-21 } [place] in [facility] 00:00: each [place] mcg/actuati 00 nostril in Me dical on nasal the Branch spray morning and 1 [place] in the evening. fluticasone 2022-0 Yes [id number] 1{spray Use 1 [facility] propionate 4-21 } [place] in [facility] o 50 00:00: each [place] mcg/actuati 00 nostril in Me dical on nasal the Branch spray morning and 1 [place] in the evening. fluticasone 2022-0 Yes [id number] 1{spray Use 1 [facility] propionate 4-21 } [place] in it o 50 00:00: each [place] mcg/actuati 00 nostril in Me dical on nasal the Branch spray morning and 1 [place] in the evening. fluticasone 2022-0 Yes [id number] 1{spray Use 1 [facility] propionate 4-21 } [place] in it o f 50 00:00: each [place] mcg/actuati 00 nostril in Me dical on nasal the Branch spray morning and 1 [place] in the evening. fluticasone 2022-0 Yes [id number] 1{spray Use 1 [facility] propionate 4-21 } [place] in ity o f 50 00:00: each [place] mcg/actuati 00 nostril in Me dical on nasal the Branch spray morning and 1 [place] in the evening. fluticasone 2022-0 Yes [id number] 1{spray Use 1 [facility] propionate 4-21 } [place] in it[facility] o f 50 00:00: each [place] mcg/actuati 00 nostril in Me dical on nasal the Branch spray morning and 1 [place] in the evening. fluticasone 2022-0 Yes [id number] 1{spray Use 1 [facility] propionate 4-21 } [place] in ity o f 50 00:00: each [place] mcg/actuati 00 nostril in Me dical on nasal the Branch spray morning and 1 [place] in the evening. metoprolol 0 2022- No 25mg Take 25 mg [facility] tartrate 25 2-20 02-20 by mouth ity of mg tablet 09:42: 00:00 in the [place] 57 :00 morning Medical and 25 mg Branch in the evening. Patient takes half tablet twice daily metoprolol 2022-0 Yes [id number] 12.5mg Take 0.5 [facility] tartrate 25 2-20 tablets by it y of mg tablet 00:00: mouth in [facility] 00 the Medical morning Branch and 0.5 tablets in the evening. Patient takes half tablet twice daily losartan 50 2022-0 Yes [id number] 50mg Take 1 [facility] mg tablet 2-20 tablet by ity o f 00:00: mouth in [place] 00 the Medical morning. Branch metoprolol 2022-0 Yes [id number] 12.5mg Take 0.5 [facility] tartrate 25 2-20 tablets by it y of mg tablet 00:00: mouth in [facility] 00 the Medical morning Branch and 0.5 tablets in the evening. Patient takes half tablet twice daily losartan 50 2022-0 Yes [id number] 50mg Take 1 [facility] mg tablet 2-20 tablet by ity o f 00:00: mouth in [place] 00 the Medical morning. Branch metoprolol 2022-0 Yes [id number] 12.5mg Take 0.5 [facility] tartrate 25 2-20 tablets by it y of mg tablet 00:00: [place] the Medical morning Branch and 0.5 tablets in the evening. Patient takes half tablet twice daily losartan 50 3-0 Yes [id number] 50mg Take 1 [facility] mg tablet 2-20 tablet by ity o f 00:00: mouth in [place] the morning. Branch metoprolol 2023-0 Yes [id number] 12.5mg Take 0.5 [facility] tartrate 25 2-20 tablets by it y of mg tablet 00:00: mouth [place] the morning Branch and 0.5 tablets in the evening. Patient takes half tablet twice daily losartan 50 3-0 Yes [id number] 50mg Take 1 [facility] mg tablet 2-20 tablet by ity o f 00:00: mouth in [place] the morning. Branch metoprolol 2023-0 Yes [id number] 12.5mg Take 0.5 [facility] tartrate 25 2-20 tablets by it y of mg tablet 00:00: mouth in [facility] the morning Branch and 0.5 tablets in the evening. Patient takes half tablet twice daily losartan 50 3-0 Yes [id number] 50mg Take 1 [facility] mg tablet 2-20 tablet by ity o f 00:00: mouth in [place] the morning. Branch metoprolol 2023-0 Yes [id number] 12.5mg Take 0.5 [facility] tartrate 25 2-20 tablets by it y of mg tablet 00:00: mouth in [facility] [place] [facility] the morning Branch and 0.5 tablets in the evening. Patient takes half tablet twice daily losartan 50 3-0 Yes [id number] 50mg Take 1 [facility] mg tablet 2-20 tablet by ity o f 00:00: mouth in [place] the morning. Branch metoprolol 2023-0 Yes [id number] 12.5mg Take 0.5 [facility] tartrate 25 2-20 tablets by it y of mg tablet 00:00: mouth in [facility] [place] [facility] the morning Branch and 0.5 tablets in the evening. Patient takes half tablet twice daily losartan 50 2023-0 Yes [id number] 50mg Take 1 [facility] mg tablet 2-20 tablet by ity o f 00:00: mouth in [place] the morning. Branch metoprolol 2023-0 Yes [id number] 12.5mg Take 0.5 [facility] tartrate 25 2-20 tablets by it y of mg tablet 00:00: mouth in [place] the Medical morning Branch and 0.5 tablets in the evening. Patient takes half tablet twice daily losartan 50 2023-0 Yes [id number] 50mg Take 1 [facility] mg tablet 2-20 tablet by ity o f 00:00: mouth in [place] the morning. Branch metoprolol 2023-0 Yes [id number] 12.5mg Take 0.5 [facility] tartrate 25 2-20 tablets by it y of mg tablet 00:00: mouth in [place] the morning Branch and 0.5 tablets in the evening. Patient takes half tablet twice daily losartan 50 2023-0 Yes [id number] 50mg Take 1 [facility] mg tablet 2-20 tablet by ity o f 00:00: mouth in [place] the morning. Branch metoprolol 2023-0 Yes [id number] 12.5mg Take 0.5 [facility] tartrate 25 2-20 tablets by it y of mg tablet 00:00: mouth in [facility] [place] [facility] the morning Branch and 0.5 tablets in the evening. Patient takes half tablet twice daily losartan 50 3-0 Yes [id number] 50mg Take 1 [facility] mg tablet 2-20 tablet by ity o f 00:00: mouth in [place] the morning. Branch metoprolol 2023-0 Yes [id number] 12.5mg Take 0.5 [facility] tartrate 25 2-20 tablets by it y of mg tablet 00:00: mouth in [facility] [place] [facility] the morning Branch and 0.5 tablets in the evening. Patient takes half tablet twice daily losartan 50 3-0 Yes [id number] 50mg Take 1 [facility] mg tablet 2-20 tablet by ity o f 00:00: mouth in [place] the morning. Branch metoprolol 2023-0 Yes [id number] 12.5mg Take 0.5 [facility] tartrate 25 2-20 tablets by it y of mg tablet 00:00: mouth in [facility] [place] [facility] the morning Branch and 0.5 tablets in the evening. Patient takes half tablet twice daily losartan 50 2023-0 Yes [id number] 50mg Take 1 [facility] mg tablet 2-20 tablet by ity o f 00:00: mouth in [place] the morning. Branch metoprolol 2023-0 Yes [id number] 12.5mg Take 0.5 [facility] tartrate 25 2-20 tablets by it y of mg tablet 00:00: mouth in [place] the morning Branch and 0.5 tablets in the evening. Patient takes half tablet twice daily losartan 50 2023-0 Yes [id number] 50mg Take 1 [facility] mg tablet 2-20 tablet by ity o f 00:00: mouth in [place] the morning. Branch metoprolol 2023-0 Yes [id number] 12.5mg Take 0.5 [facility] tartrate 25 2-20 tablets by it y of mg tablet 00:00: mouth in [place] the morning Branch and 0.5 tablets in the evening. Patient takes half tablet twice daily losartan 50 3-0 Yes [id number] 50mg Take 1 [facility] mg tablet 2-20 tablet by ity o f 00:00: mouth in [place] the morning. Branch metoprolol 2023-0 Yes [id number] 12.5mg Take 0.5 [facility] tartrate 25 2-20 tablets by it y of mg tablet 00:00: mouth in [facility] [place] [facility] the morning Branch and 0.5 tablets in the evening. Patient takes half tablet twice daily losartan 50 3-0 Yes [id number] 50mg Take 1 [facility] mg tablet 2-20 tablet by ity o f 00:00: mouth in [place] the morning. Branch metoprolol 2023-0 Yes [id number] 12.5mg Take 0.5 [facility] tartrate 25 2-20 tablets by it y of mg tablet 00:00: mouth in [facility] [place] [facility] the morning Branch and 0.5 tablets in the evening. Patient takes half tablet twice daily losartan 50 3-0 Yes [id number] 50mg Take 1 [facility] mg tablet 2-20 tablet by ity o f 00:00: mouth in [place] the morning. Branch metoprolol 2023-0 Yes [id number] 12.5mg Take 0.5 [facility] tartrate 25 2-20 tablets by it y of mg tablet 00:00: mouth in [place] the morning Branch and 0.5 tablets in the evening. Patient takes half tablet twice daily losartan 50 2023-0 Yes [id number] 50mg Take 1 [facility] mg tablet 2-20 tablet by ity o f 00:00: mouth in [place] the Medical morning. Branch metoprolol 2023-0 Yes [id number] 12.5mg Take 0.5 [facility] tartrate 25 2-20 tablets by it y of mg tablet 00:00: mouth in [place] the morning Branch and 0.5 tablets in the evening. Patient takes half tablet twice daily losartan 50 2023-0 Yes [id number] 50mg Take 1 [facility] mg tablet 2-20 tablet by ity o f 00:00: mouth in [place] the Medical morning. Branch metoprolol 2023-0 Yes [id number] 12.5mg Take 0.5 [facility] tartrate 25 2-20 tablets by it y of mg tablet 00:00: mouth [place] the Medical morning Branch and 0.5 tablets in the evening. Patient takes half tablet twice daily losartan 50 3-0 Yes [id number] 50mg Take 1 [facility] mg tablet 2-20 tablet by ity o f 00:00: mouth in [place] the morning. Branch metoprolol 2023-0 Yes [id number] 12.5mg Take 0.5 [facility] tartrate 25 2-20 tablets by it y of mg tablet 00:00: mouth in [facility] [place] [facility] the morning Branch and 0.5 tablets in the evening. Patient takes half tablet twice daily losartan 50 3-0 Yes [id number] 50mg Take 1 [facility] mg tablet 2-20 tablet by ity o f 00:00: mouth in [place] the morning. Branch metoprolol 2023-0 Yes [id number] 12.5mg Take 0.5 [facility] tartrate 25 2-20 tablets by it y of mg tablet 00:00: mouth in [facility] [place] [facility] the morning Branch and 0.5 tablets in the evening. Patient takes half tablet twice daily losartan 50 3-0 Yes [id number] 50mg Take 1 [facility] mg tablet 2-20 tablet by ity o f 00:00: mouth in [place] the Medical morning. Branch metoprolol 2023-0 Yes [id number] 12.5mg Take 0.5 [facility] tartrate 25 2-20 tablets by it y of mg tablet 00:00: mouth in [place] the morning Branch and 0.5 tablets in the evening. Patient takes half tablet twice daily losartan 50 3-0 Yes [id number] 50mg Take 1 [facility] mg tablet 2-20 tablet by ity o f 00:00: mouth in [place] the Medical morning. Branch metoprolol 2023-0 Yes [id number] 12.5mg Take 0.5 [facility] tartrate 25 2-20 tablets by it y of mg tablet 00:00: mouth in the morning Branch and 0.5 tablets in the evening. Patient takes half tablet twice daily metoprolol 0 Yes [id number] 12.5mg Take 0.5 [facility] tartrate 25 2-20 tablets by it y of mg tablet 00:00: mouth in the morning Branch and 0.5 tablets in the evening. Patient takes half tablet twice daily metoprolol 0 Yes [id number] 12.5mg Take 0.5 [facility] tartrate 25 2-20 tablets by it y of mg tablet 00:00: mouth in the Branch and 0.5 tablets in the evening. Patient takes half tablet twice daily metoprolol Yes [id number] 12.5mg Take 0.5 [facility] tartrate 25 2-20 tablets by it y of mg tablet 00:00: mouth in the Branch and 0.5 tablets in the evening. Patient takes half tablet twice daily metoprolol Yes [id number] 12.5mg Take 0.5 [facility] tartrate 25 2-20 tablets by it y of mg tablet 00:00: mouth in the and 0.5 tablets in the evening. Patient takes half tablet twice daily metoprolol 0 Yes [id number] 12.5mg Take 0.5 [facility] tartrate 25 2-20 tablets by it y of mg tablet 00:00: mouth in the Branch and 0.5 tablets in the evening. Patient takes half tablet twice daily metoprolol 2022- No [id number] 12.5mg Take 0.5 [facility] tartrate 25 2-20 07-19 tablets by i ty of mg tablet 00:00: 00:00 mouth in [place] 00 :00 the Branch and 0.5 tablets in the evening. Patient takes half tablet twice daily metoprolol 0 2022- No [id number] 12.5mg Take 0.5 [facility] tartrate 25 2-20 07-19 tablets by i ty of mg tablet 00:00: 00:00 mouth in [place] 00 :00 the Medical Branch and 0.5 tablets in the evening. Patient takes half tablet twice daily metoprolol 2022- No [id number] 12.5mg Take 0.5 [facility] tartrate 25 2-20 - tablets by i ty of mg tablet 00:00: 00:00 mouth in [facility] as 00 :00 the Medical morning Branch and 0.5 tablets in the evening. Patient takes half tablet twice daily metoprolol 2022- No [id number] 12.5mg Take 0.5 [facility] tartrate 25 2-20 - tablets by i ty of mg tablet 00:00: 00:00 mouth in [facility] [place] [facility] as 00 :00 the Medical morning Branch and 0.5 tablets in the evening. Patient takes half tablet twice daily losartan 50 2022- No [id number] 50mg Take 1 [facility] mg tablet 07-02 tablet by ity of 00:00: 00:00 mouth in [place] 00 :00 the Medical [facility] Branch [facility] Yes [id number] 10mg TAKE 1 [facility] 10 mg 2-14 TABLET BY ity of tablet 00:00: MOUTH IN [place] 00 THE [facility] MONTELUKAST Yes [id number] 10mg TAKE 1 [facility] 10 mg 2-14 TABLET BY ity of tablet 00:00: MOUTH IN [place] 00 THE [facility] MONTELUKAST Yes [id number] 10mg TAKE 1 [facility] 10 mg 2-14 TABLET BY ity of tablet 00:00: MOUTH IN [place] 00 THE [facility] MONTELUKAST 0 Yes [id number] 10mg TAKE 1 [facility] 10 mg 2-14 TABLET BY ity of tablet 00:00: MOUTH IN [place] 00 THE [facility] MONTELUKAST Yes [id number] 10mg TAKE 1 [facility] 10 mg 2-14 TABLET BY ity of tablet 00:00: MOUTH IN [place] 00 THE [facility] MONTELUKAST 0 Yes [id number] 10mg TAKE 1 [facility] 10 mg 2-14 TABLET BY ity of tablet 00:00: MOUTH IN [place] 00 THE [facility] MONTELUKAST 0 Yes [id number] 10mg TAKE 1 [facility] 10 mg 2-14 TABLET BY ity of tablet 00:00: MOUTH IN [place] 00 THE [facility] MONTELUKAST Yes [id number] 10mg TAKE 1 [facility] 10 mg 2-14 TABLET BY ity of tablet 00:00: MOUTH IN [place] 00 THE Medical MORNING Branch MONTELUKAST 0 Yes [id number] 10mg TAKE 1 [facility] 10 mg 2-14 TABLET BY ity of tablet 00:00: MOUTH IN [place] 00 THE Medical MORNING Branch MONTELUKAST 0 Yes [id number] 10mg TAKE 1 [facility] 10 mg 2-14 TABLET BY ity of tablet 00:00: MOUTH IN [place] 00 THE Medical MORNING Branch MONTELUKAST 0 Yes [id number] 10mg TAKE 1 [facility] 10 mg 2-14 TABLET BY ity of tablet 00:00: MOUTH IN [place] 00 THE [facility] MORNING Branch MONTELUKAST 0 Yes [id number] 10mg TAKE 1 [facility] 10 mg 2-14 TABLET BY ity of tablet 00:00: MOUTH IN [place] 00 THE [facility] MORNING Branch MONTELUKAST 0 Yes [id number] 10mg TAKE 1 [facility] 10 mg 2-14 TABLET BY ity of tablet 00:00: MOUTH IN [place] 00 THE [facility] MORNING Branch MONTELUKAST 0 Yes [id number] 10mg TAKE 1 [facility] 10 mg 2-14 TABLET BY ity of tablet 00:00: MOUTH IN [place] 00 THE [facility] MORNING [place] MONTELUKAST 0 Yes [id number] 10mg TAKE 1 [facility] 10 mg 2-14 TABLET BY ity of tablet 00:00: MOUTH IN [place] 00 THE [facility] MORNING Branch MONTELUKAST 0 Yes [id number] 10mg TAKE 1 [facility] 10 mg 2-14 TABLET BY ity of tablet 00:00: MOUTH IN [place] 00 THE [facility] MORNING [place] MONTELUKAST 0 Yes [id number] 10mg TAKE 1 [facility] 10 mg 2-14 TABLET BY ity of tablet 00:00: MOUTH IN [place] 00 THE [facility] MORNING [place] MONTELUKAST 0 Yes [id number] 10mg TAKE 1 [facility] 10 mg 2-14 TABLET BY ity of tablet 00:00: MOUTH IN [place] 00 THE [facility] MORNING [place] MONTELUKAST 0 Yes [id number] 10mg TAKE 1 [facility] 10 mg 2-14 TABLET BY ity of tablet 00:00: MOUTH IN [place] 00 THE [facility] MORNING [place] MONTELUKAST 0 2022- No [id number] 10mg TAKE 1 [facility] 10 mg 2-14 - TABLET BY ity of tablet 00:00: 00:00 MOUTH IN [place] 00 :00 THE Branch metFORMIN 2021- Yes [id number] 1000mg Take 1 [facility] 1,000 mg 2-12 tablet by ity of tablet 00:00: mouth in [place] the Branch and 1 tablet in the evening. Take with meals. Omeprazole 2021- Yes [id number] 20mg Take 1 [facility] 20 mg 2-12 tablet by ity of tablet 00:00: mouth in [place] the morning. Branch metFORMIN 2021-05 Yes [id number] 1000mg Take 1 [facility] 1,000 mg 2-12 tablet by ity of tablet 00:00: mouth in [place] [address] the Branch and 1 tablet in the evening. Take with meals. Omeprazole 2021-05 Yes [id number] 20mg Take 1 [facility] 20 mg 2-12 tablet by ity of tablet 00:00: mouth in [place] the . Branch metFORMIN 2021-05 Yes [id number] 1000mg Take 1 [facility] 1,000 mg 2-12 tablet by ity of tablet 00:00: mouth in [place] [address] the [place] and 1 tablet in the evening. Take with meals. Omeprazole 2021-05 Yes [id number] 20mg Take 1 [facility] 20 mg 2-12 tablet by ity of tablet 00:00: mouth in [place] the . Branch metFORMIN 2021-05 Yes [id number] 1000mg Take 1 [facility] 1,000 mg 2-12 tablet by ity of tablet 00:00: mouth in [place] [address] the [place] and 1 tablet in the evening. Take with meals. Omeprazole 2021-05 Yes [id number] 20mg Take 1 [facility] 20 mg 2-12 tablet by ity of tablet 00:00: mouth in [place] the morning. Branch metFORMIN 2021-05 Yes [id number] 1000mg Take 1 [facility] 1,000 mg 2-12 tablet by ity of tablet 00:00: mouth in [place] [address] the morning Branch and 1 tablet in the evening. Take with meals. Omeprazole 2021-05 Yes [id number] 20mg Take 1 [facility] 20 mg 2-12 tablet by ity of tablet 00:00: mouth in [place] the morning. Branch metFORMIN 2021-05 Yes [id number] 1000mg Take 1 [facility] 1,000 mg 2-12 tablet by ity of tablet 00:00: mouth in [place] [address] the morning Branch and 1 tablet in the evening. Take with meals. Omeprazole 2021- Yes [id number] 20mg Take 1 [facility] 20 mg 2-12 tablet by ity of tablet 00:00: mouth in [place] the morning. Branch metFORMIN 2021- Yes [id number] 1000mg Take 1 [facility] 1,000 mg 2-12 tablet by ity of tablet 00:00: mouth in [place] [address] the morning Branch and 1 tablet in the evening. Take with meals. Omeprazole 2021- Yes [id number] 20mg Take 1 [facility] 20 mg 2-12 tablet by [facility] of tablet 00:00: mouth in [place] the morning. Branch metFORMIN 2021- Yes [id number] 1000mg Take 1 [facility] 1,000 mg 2-12 tablet by ity of tablet 00:00: mouth in [place] [address] the morning [place] and 1 tablet in the evening. Take with meals. Omeprazole 2021- Yes [id number] 20mg Take 1 [facility] 20 mg 2-12 tablet by ity of tablet 00:00: mouth in [place] [address] the morning. Branch metFORMIN 2021- Yes [id number] 1000mg Take 1 [facility] 1,000 mg 2-12 tablet by ity of tablet 00:00: mouth in [place] [address] the [place] and 1 tablet in the evening. Take with meals. Omeprazole 2021- Yes [id number] 20mg Take 1 [facility] 20 mg 2-12 tablet by ity of tablet 00:00: mouth in [place] the . Branch metFORMIN 2021- Yes [id number] 1000mg Take 1 [facility] 1,000 mg 2-12 tablet by ity of tablet 00:00: mouth in [place] [address] the [facility] morning Branch and 1 tablet in the evening. Take with meals. Omeprazole 2021-1 Yes [id number] 20mg Take 1 [facility] 20 mg 2-12 tablet by ity of tablet 00:00: mouth in [place] [address] the morning. Branch metFORMIN 2021- Yes [id number] 1000mg Take 1 [facility] 1,000 mg 2-12 tablet by ity of tablet 00:00: mouth in [address] morning [place] and 1 tablet in the evening. Take with meals. Omeprazole 2021- Yes [id number] 20mg Take 1 [facility] 20 mg 2-12 tablet by ity of tablet 00:00: mouth in [place] the morning. Branch metFORMIN 2021-1 Yes [id number] 1000mg Take 1 [facility] 1,000 mg 2-12 tablet by ity of tablet 00:00: mouth in [place] the morning Branch and 1 tablet in the evening. Take with meals. Omeprazole 2021-1 Yes [id number] 20mg Take 1 [facility] 20 mg 2-12 tablet by ity of tablet 00:00: mouth in [place] the morning. Branch metFORMIN 2021-1 Yes [id number] 1000mg Take 1 [facility] 1,000 mg 2-12 tablet by ity of tablet 00:00: mouth in [place] the morning Branch and 1 tablet in the evening. Take with meals. Omeprazole 2021-1 Yes [id number] 20mg Take 1 [facility] 20 mg 2-12 tablet by ity of tablet 00:00: mouth in [place] the morning. Branch metFORMIN 2021-1 Yes [id number] 1000mg Take 1 [facility] 1,000 mg 2-12 tablet by ity of tablet 00:00: mouth in [place] [address] the morning Branch and 1 tablet in the evening. Take with meals. Omeprazole 2021-1 Yes [id number] 20mg Take 1 [facility] 20 mg 2-12 tablet by ity of tablet 00:00: mouth in [place] the morning. Branch metFORMIN 2021-1 Yes [id number] 1000mg Take 1 [facility] 1,000 mg 2-12 tablet by ity of tablet 00:00: mouth in [place] [address] the morning Branch and 1 tablet in the evening. Take with meals. Omeprazole 2021-1 Yes [id number] 20mg Take 1 [facility] 20 mg 2-12 tablet by ity of tablet 00:00: mouth in [place] the morning. Branch Omeprazole 2021-1 Yes [id number] 20mg Take 1 [facility] 20 mg 2-12 tablet by ity of tablet 00:00: mouth in [place] the morning. Branch Omeprazole 2021-1 Yes [id number] 20mg Take 1 [facility] 20 mg 2-12 tablet by it[facility] of tablet 00:00: mouth in [place] the morning. Branch Omeprazole 2021-1 Yes [id number] 20mg Take 1 [facility] 20 mg 2-12 tablet by it[facility] of tablet 00:00: mouth in [place] the Medical morning. Branch Omeprazole 2-1 Yes [id number] 20mg Take 1 [facility] 20 mg 2-12 tablet by ity of tablet 00:00: mouth in [place] the Medical morning. Branch Omeprazole 2-1 Yes [id number] 20mg Take 1 [facility] 20 mg 2-12 tablet by ity of tablet 00:00: mouth in [place] the Medical morning. Branch Omeprazole 2021-1 Yes [id number] 20mg Take 1 [facility] 20 mg 2-12 tablet by ity of tablet 00:00: mouth in [place] the Medical morning. Branch Omeprazole 2021-1 Yes [id number] 20mg Take 1 [facility] 20 mg 2-12 tablet by ity of tablet 00:00: mouth in [place] the Medical morning. Branch Omeprazole 2-1 Yes [id number] 20mg Take 1 [facility] 20 mg 2-12 tablet by ity of tablet 00:00: mouth in [place] the Medical morning. Branch Omeprazole 2021-1 Yes [id number] 20mg Take 1 [facility] 20 mg 2-12 tablet by ity of tablet 00:00: mouth in [place] the Medical morning. Branch Omeprazole 2021-1 Yes [id number] 20mg Take 1 [facility] 20 mg 2-12 tablet by ity of tablet 00:00: mouth in [place] the Medical morning. Branch Omeprazole 2021-1 Yes [id number] 20mg Take 1 [facility] 20 mg 2-12 tablet by ity of tablet 00:00: mouth in [place] the Medical morning. Branch Omeprazole 2-1 Yes [id number] 20mg Take 1 [facility] 20 mg 2-12 tablet by ity of tablet 00:00: mouth in [place] the Medical morning. Branch Omeprazole 2-1 Yes [id number] 20mg Take 1 [facility] 20 mg 2-12 tablet by ity of tablet 00:00: mouth in [place] the Medical morning. Branch Omeprazole 2-1 Yes [id number] 20mg Take 1 [facility] 20 mg 2-12 tablet by ity of tablet 00:00: mouth in [place] the Medical morning. Branch Omeprazole 2-1 Yes [id number] 20mg Take 1 [facility] 20 mg 2-12 tablet by ity of tablet 00:00: mouth in [place] the Medical morning. Branch Omeprazole 2-1 Yes [id number] 20mg Take 1 [facility] 20 mg 2-12 tablet by ity of tablet 00:00: mouth in [place] 00 the morning. Branch Omeprazole 2021-05 Yes [id number] 20mg Take 1 [facility] 20 mg 2-12 tablet by ity of tablet 00:00: mouth in [place] the morning. Branch Omeprazole 2021-05 Yes [id number] 20mg Take 1 [facility] 20 mg 2-12 tablet by ity of tablet 00:00: mouth in [place] the morning. Branch Omeprazole 2021-05 Yes [id number] 20mg Take 1 [facility] 20 mg 2-12 tablet by ity of tablet 00:00: mouth in [place] the morning. Branch metFORMIN 2021-053- No [id number] 1000mg Take 1 [facility] 1,000 mg 2-12 -26 tablet by ity o f tablet 00:00: 00:00 mouth in [place] 00 :00 the morning Branch and 1 tablet in the evening. Take with meals. apixaban 2021-05 Yes 1358 5mg Take 1 [facility] (ELIQUIS) 5 1-25 tablet by ity of mg tablet 00:00: mouth in [place] [address] the morning Branch and 1 tablet in the evening. Indication s: atrial fibrillati on apixaban 2021-05 Yes 1358 5mg Take 1 [facility] (ELIQUIS) 5 1-25 tablet by ity of mg tablet 00:00: mouth in [place] [address] the morning Branch and 1 tablet in the evening. Indication s: atrial fibrillati on apixaban 2021-05 Yes 1358 5mg Take 1 [facility] (ELIQUIS) 5 1-25 tablet by ity of mg tablet 00:00: mouth in [place] [address] the Medical morning Branch and 1 tablet in the evening. Indication s: atrial fibrillati on apixaban 2021-05 Yes 1358 5mg Take 1 [facility] (ELIQUIS) 5 1-25 tablet by ity of mg tablet 00:00: mouth in [place] [address] the morning Branch and 1 tablet in the evening. Indication s: atrial fibrillati on apixaban 2021-05 Yes 1358 5mg Take 1 [facility] (ELIQUIS) 5 1-25 tablet by ity of mg tablet 00:00: mouth in [place] [address] the morning Branch and 1 tablet in [...] evening. Indication s: atrial fibrillati on apixaban 2021-053- No 1358 5mg Take 1 [facility] (ELIQUIS) 5 1-25 07-19 tablet by it y of mg tablet 00:00: 00:00 mouth in [place] 00 :00 the Medical morning Branch and 1 tablet in the evening. Indication s: atrial fibrillati on apixaban 2021-2022- No 1358 5mg Take 1 [facility] [...] evening. Indication s: atrial fibrillati on apixaban 2021-2022- No 1358 5mg Take 1 [facility] (ELIQUIS) 5 06-06 tablet by it y of mg tablet 00:00: 00:00 mouth in [place] 00 :00 the Medical morning Branch and 1 tablet in the evening. Indication s: atrial fibrillati on apixaban 2021-05- No 5mg QD Take [address] [facility] (ELIQUIS) 5 06-06- tablet (5 [facility] mg Tab 00:00: 00:00 mg total) Medic al tablet 00 :00 by mouth Center daily. apixaban 2021-05- No 5mg QD Take [address] [facility] (ELIQUIS) 5 06-06-14 tablet (5 [facility] mg Tab 00:00: 00:00 mg total) Medic al tablet 00 :00 by mouth Center daily. apixaban 2021-05- No 5mg QD Take [address] [facility] (ELIQUIS) 5 06-06- tablet (5 [facility] mg Tab 00:00: 00:00 mg total) Medic al tablet 00 :00 by mouth Center daily. losartan 25 2021-05- No 25mg Take 25 mg [facility] mg tablet 06-03 by mouth ity o f 14:08: 00:00 daily. [place] 17 :00 [facility] losartan 25 2021-05- No 25mg Take 25 mg [facility] mg tablet 06-03 by mouth ity o f 14:08: 00:00 daily. [place] 17 :00 Medical Branch losartan 25 2021-05- No 25mg Take 25 mg [facility] mg tablet -03 04-22 by mouth ity o f 14:08: 00:00 daily. [place] 17 :00 Medical Branch losartan 25 2021-05- No 25mg Take 25 mg [facility] mg tablet -03 04-22 by mouth ity o f 14:08: 00:00 daily. [place] 17 :00 Medical Branch metoprolol 2021-05 Yes 25mg Take 25 mg [facility] tartrate 25 1-22 by mouth ity of mg tablet 13:45: in the [place] [address] morning Medical and 25 mg Branch in the evening. Patient takes half tablet twice daily metoprolol 2021-05 Yes 25mg Take 25 mg [facility] tartrate 25 1-22 by mouth ity of mg tablet 13:45: in the [place] [address] morning Medical and 25 mg Branch in the evening. Patient takes half tablet twice daily metoprolol 2021-05 Yes 25mg Take 25 mg [facility] tartrate 25 1-22 by mouth ity of mg tablet 13:45: in the [place] [address] morning Medical and 25 mg Branch in the evening. Patient takes half tablet twice daily metoprolol 2021-05 Yes 25mg Take 25 mg [facility] nivers tartrate 25 1-22 by mouth ity of mg tablet 13:45: in the [place] [address] morning Medical and 25 mg Branch in the evening. Patient takes half tablet twice daily metoprolol 2021-05 Yes 25mg Take 25 mg [facility] nivers tartrate 25 1-22 by mouth ity of mg tablet 13:45: in the [place] [address] morning Medical and 25 mg Branch in the evening. Patient takes half tablet twice daily metoprolol 2021-05 Yes 25mg Take 25 mg [facility] nivers tartrate 25 1-22 by mouth ity of mg tablet 13:45: in the [place] [address] morning Medical and 25 mg Branch in the evening. Patient takes half tablet twice daily metoprolol 2021-05 Yes 25mg Take 25 mg [facility] nivers tartrate 25 1-22 by mouth ity of mg tablet 13:45: in the [place] [address] morning Medical and 25 mg Branch in the evening. Patient takes half tablet twice daily metoprolol 2021-05 Yes 25mg Take 25 mg U nivers tartrate 25 1-22 by mouth ity of mg tablet 13:45: in the [place] [address] morning Medical and 25 mg Branch in the evening. Patient takes half tablet twice daily metoprolol 2021- Yes 25mg Take 25 mg U nivers tartrate 25 1-22 by mouth ity of mg tablet 13:45: in the [place] [address] morning Medical and 25 mg Branch in the evening. Patient takes half tablet twice daily metoprolol 2021- Yes 25mg Take 25 mg U nivers tartrate 25 1-22 by mouth ity of mg tablet 13:45: in the [place] [address] morning Medical and 25 mg Branch in the evening. Patient takes half tablet twice daily metoprolol 2021-1 Yes 25mg Take 25 mg U nivers tartrate 25 1-22 by mouth ity of mg tablet 13:45: in the [place] [address] morning Medical and 25 mg Branch in the evening. Patient takes half tablet twice daily metoprolol 2021- Yes 25mg Take 25 mg U nivers tartrate 25 1-22 by mouth ity of mg tablet 13:45: in the [place] [address] morning Medical and 25 mg Branch in the evening. Patient takes half tablet twice daily metoprolol 2021- Yes 25mg Take 25 mg U nivers tartrate 25 1-22 by mouth ity of mg tablet 13:45: in the [place] [address] morning Medical and 25 mg Branch in the evening. Patient takes half tablet twice daily metoprolol 2021- Yes 25mg Take 25 mg U nivers tartrate 25 1-22 by mouth ity of mg tablet 13:45: in the [place] [address] morning Medical and 25 mg Branch in the evening. Patient takes half tablet twice daily metoprolol 2021- Yes 25mg Take 25 mg U nivers tartrate 25 1-22 by mouth ity of mg tablet 13:45: in the [place] [address] morning Medical and 25 mg Branch in the evening. Patient takes half tablet twice daily metoprolol 2021-1 Yes 25mg Take 25 mg U nivers tartrate 25 1-22 by mouth ity of mg tablet 13:45: in the [place] [address] morning Medical and 25 mg Branch in the evening. Patient takes half tablet twice daily metoprolol 2021-1 Yes 25mg Take 25 mg U nivers tartrate 25 1-22 by mouth ity of mg tablet 13:45: in the [place] [address] morning Medical and 25 mg Branch in the evening. Patient takes half tablet twice daily albuterol 2021-05 Yes [id number] 2{puff} Inhale 2 [facility] (PROAIR 1-22 Puffs ity of HFA) 90 00:00: every 6 [place] mcg/actuati 00 (six) Medical on inhaler hours as Branc h needed for Wheezing, Shortness of Breath or Chest tightness. losartan 2021-05 Yes [id number] 100mg Take 1 [facility] [place] 100 mg 1-22 tablet by ity of tablet 00:00: mouth in [place] 00 the Medical morning. Branch losartan 2021-05 Yes [id number] 100mg Take 1 [facility] [place] 100 mg 1-22 tablet by ity of tablet 00:00: mouth in [place] 00 the Medical morning. Branch albuterol 2021-05 Yes [id number] 2{puff} Inhale 2 [facility] (PROAIR 1-22 Puffs ity of HFA) 90 00:00: every 6 [place] mcg/actuati 00 (six) Medical on inhaler hours as Branc h needed for Wheezing, Shortness of Breath or Chest tightness. albuterol 2021-05 Yes [id number] 2{puff} Inhale 2 [facility] (PROAIR 1-22 Puffs ity of HFA) 90 00:00: every 6 [place] mcg/actuati 00 (six) Medical on inhaler hours as Branc h needed for Wheezing, Shortness of Breath or Chest tightness. losartan 2021-05 Yes [id number] 100mg Take 1 [facility] [place] 100 mg 1-22 tablet by ity of tablet 00:00: mouth in [place] 00 the Medical morning. Branch albuterol 2021-05 Yes [id number] 2{puff} Inhale 2 [facility] (PROAIR 1-22 Puffs ity of HFA) 90 00:00: every 6 [place] mcg/actuati 00 (six) Medical on inhaler hours as Branc h needed for Wheezing, Shortness of Breath or Chest tightness. losartan 2021-05 Yes [id number] 100mg Take 1 [facility] [place] 100 mg 1-22 tablet by ity of tablet 00:00: mouth in [place] 00 the Medical morning. Branch albuterol 2021-05 Yes [id number] 2{puff} Inhale 2 [facility] (PROAIR 1-22 Puffs ity of HFA) 90 00:00: every 6 [place] mcg/actuati 00 (six) Medical on inhaler hours as Branc h needed for Wheezing, Shortness of Breath or Chest tightness. losartan 2021-05 Yes [id number] 100mg Take 1 [facility] [place] 100 mg 1-22 tablet by ity of tablet 00:00: mouth in [place] 00 the Medical morning. Branch albuterol 2021-05 Yes [id number] 2{puff} Inhale 2 [facility] (PROAIR 1-22 Puffs ity of HFA) 90 00:00: every 6 [place] mcg/actuati 00 (six) Medical on inhaler hours as Branc h needed for Wheezing, Shortness of Breath or Chest tightness. losartan 2021-05 Yes [id number] 100mg Take 1 [facility] [place] 100 mg 1-22 tablet by ity of tablet 00:00: mouth in [place] 00 the Medical morning. Branch albuterol 2021-05 Yes [id number] 2{puff} Inhale 2 [facility] (PROAIR 1-22 Puffs ity of HFA) 90 00:00: every 6 [place] mcg/actuati 00 (six) Medical on inhaler hours as Branc h needed for Wheezing, Shortness of Breath or Chest tightness. losartan 2021-05 Yes [id number] 100mg Take 1 [facility] [place] 100 mg 1-22 tablet by ity of tablet 00:00: mouth in [place] 00 the Medical morning. Branch albuterol 2021-05 Yes [id number] 2{puff} Inhale 2 [facility] (PROAIR 1-22 Puffs ity of HFA) 90 00:00: every 6 [place] mcg/actuati 00 (six) Medical on inhaler hours as Branc h needed for Wheezing, Shortness of Breath or Chest tightness. losartan 2021-05 Yes [id number] 100mg Take 1 [facility] [place] 100 mg 1-22 tablet by ity of tablet 00:00: mouth in [place] 00 the Medical morning. Branch albuterol 2021-05 Yes [id number] 2{puff} Inhale 2 [facility] (PROAIR 1-22 Puffs ity of HFA) 90 00:00: every 6 [place] mcg/actuati 00 (six) Medical on inhaler hours as Branc h needed for Wheezing, Shortness of Breath or Chest tightness. losartan 2021-05 Yes [id number] 100mg Take 1 [facility] [place] 100 mg 1-22 tablet by ity of tablet 00:00: mouth in [place] 00 the Medical morning. Branch albuterol 2021-05 Yes [id number] 2{puff} Inhale 2 [facility] (PROAIR 1-22 Puffs ity of HFA) 90 00:00: every 6 [place] mcg/actuati 00 (six) Medical on inhaler hours as Branc h needed for Wheezing, Shortness of Breath or Chest tightness. losartan 2021-05 Yes [id number] 100mg Take 1 [facility] [place] 100 mg 1-22 tablet by ity of tablet 00:00: mouth in [place] 00 the Medical morning. Branch losartan 2021-05 Yes [id number] 100mg Take 1 [facility] [place] 100 mg 1-22 tablet by ity of tablet 00:00: mouth in [place] 00 the Medical morning. Branch albuterol 2021-05 Yes [id number] 2{puff} Inhale 2 [facility] (PROAIR 1-22 Puffs ity of HFA) 90 00:00: every 6 [place] mcg/actuati 00 (six) Medical on inhaler hours as Branc h needed for Wheezing, Shortness of Breath or Chest tightness. losartan 2021-05 Yes [id number] 100mg Take 1 [facility] [place] 100 mg 1-22 tablet by ity of tablet 00:00: mouth in [place] 00 the Medical morning. Branch albuterol 2021-05 Yes [id number] 2{puff} Inhale 2 [facility] (PROAIR 1-22 Puffs ity of HFA) 90 00:00: every 6 [place] mcg/actuati 00 (six) Medical on inhaler hours as Branc h needed for Wheezing, Shortness of Breath or Chest tightness. losartan 2021-05 Yes [id number] 100mg Take 1 [facility] [place] 100 mg 1-22 tablet by ity of tablet 00:00: mouth in [place] 00 the Medical morning. Branch albuterol 2021-05 Yes [id number] 2{puff} Inhale 2 [facility] (PROAIR 1-22 Puffs ity of HFA) 90 00:00: every 6 [place] mcg/actuati 00 (six) Medical on inhaler hours as Branc h needed for Wheezing, Shortness of Breath or Chest tightness. losartan 2021-05 Yes [id number] 100mg Take 1 [facility] [place] 100 mg 1-22 tablet by ity of tablet 00:00: mouth in [place] 00 the Medical morning. Branch albuterol 2021-05 Yes [id number] 2{puff} Inhale 2 [facility] (PROAIR 1-22 Puffs ity of HFA) 90 00:00: every 6 [place] mcg/actuati 00 (six) Medical on inhaler hours as Branc h needed for Wheezing, Shortness of Breath or Chest tightness. losartan 2021-05 Yes [id number] 100mg Take 1 [facility] [place] 100 mg 1-22 tablet by ity of tablet 00:00: mouth in [place] 00 the Medical morning. Branch albuterol 2021-05 Yes [id number] 2{puff} Inhale 2 [facility] (PROAIR 1-22 Puffs ity of HFA) 90 00:00: every 6 [place] mcg/actuati 00 (six) Medical on inhaler hours as Branc h needed for Wheezing, Shortness of Breath or Chest tightness. losartan 2021-05 Yes [id number] 100mg Take 1 [facility] [place] 100 mg 1-22 tablet by ity of tablet 00:00: mouth in [place] 00 the Medical morning. Branch albuterol 2021-05 Yes [id number] 2{puff} Inhale 2 [facility] (PROAIR 1-22 Puffs ity of HFA) 90 00:00: every 6 [place] mcg/actuati 00 (six) Medical on inhaler hours as Branc h needed for Wheezing, Shortness of Breath or Chest tightness. losartan 2021-05 Yes [id number] 100mg Take 1 [facility] [place] 100 mg 1-22 tablet by ity of tablet 00:00: mouth in [place] 00 the Medical morning. Branch albuterol 2021-05 Yes [id number] 2{puff} Inhale 2 [facility] (PROAIR 1-22 Puffs ity of HFA) 90 00:00: every 6 [place] mcg/actuati 00 (six) Medical on inhaler hours as Branc h needed for Wheezing, Shortness of Breath or Chest tightness. losartan 2021-05 Yes [id number] 100mg Take 1 [facility] [place] 100 mg 1-22 tablet by ity of tablet 00:00: mouth in [place] 00 the Medical morning. Branch albuterol 2021-05 Yes [id number] 2{puff} Inhale 2 [facility] (PROAIR 1-22 Puffs ity of HFA) 90 00:00: every 6 [place] mcg/actuati 00 (six) Medical on inhaler hours as Branc h needed for Wheezing, Shortness of Breath or Chest tightness. losartan 2021-05 Yes [id number] 100mg Take 1 [facility] [place] 100 mg 1-22 tablet by ity of tablet 00:00: mouth in [place] 00 the Medical morning. Branch albuterol 2021-05 Yes [id number] 2{puff} Inhale 2 [facility] (PROAIR 1-22 Puffs ity of HFA) 90 00:00: every 6 [place] mcg/actuati 00 (six) Medical on inhaler hours as Branc h needed for Wheezing, Shortness of Breath or Chest tightness. losartan 2021-05 Yes [id number] 100mg Take 1 [facility] [place] 100 mg 1-22 tablet by ity of tablet 00:00: mouth in [place] 00 the Medical morning. Branch albuterol 2021-05 Yes [id number] 2{puff} Inhale 2 [facility] (PROAIR 1-22 Puffs ity of HFA) 90 00:00: every 6 [place] mcg/actuati 00 (six) Medical on inhaler hours as Branc h needed for Wheezing, Shortness of Breath or Chest tightness. losartan 2021-05 Yes [id number] 100mg Take 1 [facility] [place] 100 mg 1-22 tablet by ity of tablet 00:00: mouth in [place] 00 the Medical morning. Branch albuterol 2021-05 Yes [id number] 2{puff} Inhale 2 [facility] (PROAIR 1-22 Puffs ity of HFA) 90 00:00: every 6 [place] mcg/actuati 00 (six) Medical on inhaler hours as Branc h needed for Wheezing, Shortness of Breath or Chest tightness. losartan 2021-05 Yes [id number] 100mg Take 1 [facility] [place] 100 mg 1-22 tablet by ity of tablet 00:00: mouth in [place] 00 the Medical morning. Branch albuterol 2021-05 Yes [id number] 2{puff} Inhale 2 [facility] (PROAIR 1-22 Puffs ity of HFA) 90 00:00: every 6 [place] mcg/actuati 00 (six) Medical on inhaler hours as Branc h needed for Wheezing, Shortness of Breath or Chest tightness. losartan 2021-05 Yes [id number] 100mg Take 1 [facility] [place] 100 mg 1-22 tablet by ity of tablet 00:00: mouth in [place] 00 the Medical morning. Branch albuterol 2021-05 Yes [id number] 2{puff} Inhale 2 [facility] (PROAIR 1-22 Puffs ity of HFA) 90 00:00: every 6 [place] mcg/actuati 00 (six) Medical on inhaler hours as Branc h needed for Wheezing, Shortness of Breath or Chest tightness. losartan 2021-05 Yes [id number] 100mg Take 1 [facility] [place] 100 mg 1-22 tablet by ity of tablet 00:00: mouth in [place] 00 the Medical morning. Branch albuterol 2021-05 Yes [id number] 2{puff} Inhale 2 [facility] (PROAIR 1-22 Puffs ity of HFA) 90 00:00: every 6 [place] mcg/actuati 00 (six) Medical on inhaler hours as Branc h needed for Wheezing, Shortness of Breath or Chest tightness. losartan 2021-05 Yes [id number] 100mg Take 1 [facility] [place] 100 mg 1-22 tablet by ity of tablet 00:00: mouth in [place] 00 the Medical morning. Branch albuterol 2021-05 Yes [id number] 2{puff} Inhale 2 [facility] (PROAIR 1-22 Puffs ity of HFA) 90 00:00: every 6 [place] mcg/actuati 00 (six) Medical on inhaler hours as Branc h needed for Wheezing, Shortness of Breath or Chest tightness. losartan 2021-05 Yes [id number] 100mg Take 1 [facility] [place] 100 mg 1-22 tablet by ity of tablet 00:00: mouth in [place] 00 the Medical morning. Branch albuterol 2021-05 Yes [id number] 2{puff} Inhale 2 [facility] (PROAIR 1-22 Puffs ity of HFA) 90 00:00: every 6 [place] mcg/actuati 00 (six) Medical on inhaler hours as Branc h needed for Wheezing, Shortness of Breath or Chest tightness. losartan 2021-05 Yes [id number] 100mg Take 1 [facility] [place] 100 mg 1-22 tablet by ity of tablet 00:00: mouth in [place] 00 the Medical morning. Branch albuterol 2021-05 Yes [id number] 2{puff} Inhale 2 [facility] (PROAIR 1-22 Puffs ity of HFA) 90 00:00: every 6 [place] mcg/actuati 00 (six) Medical on inhaler hours as Branc h needed for Wheezing, Shortness of Breath or Chest tightness. losartan 2021-05 Yes [id number] 100mg Take 1 [facility] [place] 100 mg 1-22 tablet by ity of tablet 00:00: mouth in [place] 00 the Medical morning. Branch albuterol 2021-05 Yes [id number] 2{puff} Inhale 2 [facility] (PROAIR 1-22 Puffs ity of HFA) 90 00:00: every 6 [place] mcg/actuati 00 (six) Medical on inhaler hours as Branc h needed for Wheezing, Shortness of Breath or Chest tightness. losartan 2021-05 Yes [id number] 100mg Take 1 [facility] [place] 100 mg 1-22 tablet by ity of tablet 00:00: mouth in [place] 00 the Medical morning. Branch albuterol 2021-05 Yes [id number] 2{puff} Inhale 2 [facility] (PROAIR 1-22 Puffs ity of HFA) 90 00:00: every 6 [place] mcg/actuati 00 (six) Medical on inhaler hours as Branc h needed for Wheezing, Shortness of Breath or Chest tightness. losartan 2021-05 Yes [id number] 100mg Take 1 [facility] [place] 100 mg 1-22 tablet by ity of tablet 00:00: mouth in [place] 00 the Medical morning. Branch albuterol 2021-05 Yes [id number] 2{puff} Inhale 2 [facility] (PROAIR 1-22 Puffs ity of HFA) 90 00:00: every 6 [place] mcg/actuati 00 (six) Medical on inhaler hours as Branc h needed for Wheezing, Shortness of Breath or Chest tightness. losartan 2021-05 Yes [id number] 100mg Take 1 [facility] [place] 100 mg 1-22 tablet by ity of tablet 00:00: mouth in [place] 00 the Medical morning. Branch albuterol 2021-05 Yes [id number] 2{puff} Inhale 2 [facility] (PROAIR 1-22 Puffs ity of HFA) 90 00:00: every 6 [place] mcg/actuati 00 (six) Medical on inhaler hours as Branc h needed for Wheezing, Shortness of Breath or Chest tightness. losartan 2021-05 Yes [id number] 100mg Take 1 [facility] [place] 100 mg 1-22 tablet by ity of tablet 00:00: mouth in [place] 00 the Medical morning. Branch albuterol 2021-05 Yes [id number] 2{puff} Inhale 2 [facility] (PROAIR 1-22 Puffs ity of HFA) 90 00:00: every 6 [place] mcg/actuati 00 (six) Medical on inhaler hours as Branc h needed for Wheezing, Shortness of Breath or Chest tightness. losartan 2021-05 Yes [id number] 100mg Take 1 [facility] [place] 100 mg 1-22 tablet by ity of tablet 00:00: mouth in [place] 00 the Medical morning. Branch albuterol 2021-05 Yes [id number] 2{puff} Inhale 2 [facility] (PROAIR 1-22 Puffs ity of HFA) 90 00:00: every 6 [place] mcg/actuati 00 (six) Medical on inhaler hours as Branc h needed for Wheezing, Shortness of Breath or Chest tightness. losartan 2021-05 Yes [id number] 100mg Take 1 [facility] 100 mg 1-22 tablet by [facility] of tablet 00:00: mouth in [place] 00 the Medical morning. Branch albuterol 2021-05 Yes [id number] 2{puff} Inhale 2 [facility] (PROAIR 1-22 Puffs ity of HFA) 90 00:00: every 6 [place] mcg/actuati 00 (six) Medical on inhaler hours as Branc h needed for Wheezing, Shortness of Breath or Chest tightness. losartan 2021-05 Yes [id number] 100mg Take 1 [facility] 100 mg 1-22 tablet by [facility] of tablet 00:00: mouth in [place] 00 the Medical morning. Branch albuterol 2021-05 Yes [id number] 2{puff} Inhale 2 [facility] (PROAIR 1-22 Puffs ity of HFA) 90 00:00: every 6 [place] mcg/actuati 00 (six) Medical on inhaler hours as Branc h needed for Wheezing, Shortness of Breath or Chest tightness. losartan 2021-05 Yes [id number] 100mg Take 1 [facility] [place] 100 mg 1-22 tablet by [facility] of tablet 00:00: mouth in [place] 00 the Medical morning. Branch albuterol 2021-05 Yes [id number] 2{puff} Inhale 2 [facility] (PROAIR 1-22 Puffs ity of HFA) 90 00:00: every 6 [place] mcg/actuati 00 (six) Medical on inhaler hours as Branc h needed for Wheezing, Shortness of Breath or Chest tightness. losartan 2021-05 Yes [id number] 100mg Take 1 [facility] 100 mg 1-22 tablet by [facility] of tablet 00:00: mouth in [place] 00 the Medical morning. Branch albuterol 2021-05 Yes [id number] 2{puff} Inhale 2 [facility] (PROAIR 1-22 Puffs ity of HFA) 90 00:00: every 6 [place] mcg/actuati 00 (six) Medical on inhaler hours as Branc h needed for Wheezing, Shortness of Breath or Chest tightness. losartan 2021-05 Yes [id number] 100mg Take 1 [facility] [place] 100 mg 1-22 tablet by [facility] of tablet 00:00: mouth in [place] 00 the Medical morning. Branch albuterol 2021-05 Yes [id number] 2{puff} Inhale 2 [facility] (PROAIR 1-22 Puffs ity of HFA) 90 00:00: every 6 [place] mcg/actuati 00 (six) Medical on inhaler hours as Branc h needed for Wheezing, Shortness of Breath or Chest tightness. losartan 2021-05 Yes [id number] 100mg Take 1 [facility] [place] 100 mg 1-22 tablet by [facility] of tablet 00:00: mouth in [place] 00 the Medical morning. Branch albuterol 2021-05 Yes [id number] 2{puff} Inhale 2 [facility] (PROAIR 1-22 Puffs ity of HFA) 90 00:00: every 6 [place] mcg/actuati 00 (six) Medical on inhaler hours as Branc h needed for Wheezing, Shortness of Breath or Chest tightness. losartan 2021-05 Yes [id number] 100mg Take 1 [facility] [place] 100 mg 1-22 tablet by [facility] of tablet 00:00: mouth in [place] 00 the Medical morning. Branch albuterol 2021-05 Yes [id number] 2{puff} Inhale 2 [facility] (PROAIR 1-22 Puffs ity of HFA) 90 00:00: every 6 [place] mcg/actuati 00 (six) Medical on inhaler hours as Branc h needed for Wheezing, Shortness of Breath or Chest tightness. losartan 2021-05 Yes [id number] 100mg Take 1 [facility] [place] 100 mg 1-22 tablet by [facility] of tablet 00:00: mouth in [place] 00 the Medical morning. Branch albuterol 2021-05 Yes [id number] 2{puff} Inhale 2 [facility] (PROAIR 1-22 Puffs ity of HFA) 90 00:00: every 6 [place] mcg/actuati 00 (six) Medical on inhaler hours as Branc h needed for Wheezing, Shortness of Breath or Chest tightness. losartan 2021-05 Yes [id number] 100mg Take 1 [facility] [place] 100 mg 1-22 tablet by [facility] of tablet 00:00: mouth in [place] 00 the Medical morning. Branch albuterol 2021-05 Yes [id number] 2{puff} Inhale 2 [facility] (PROAIR 1-22 Puffs ity of HFA) 90 00:00: every 6 [place] mcg/actuati 00 (six) Medical on inhaler hours as Branc h needed for Wheezing, Shortness of Breath or Chest tightness. losartan 2021-05 Yes [id number] 100mg Take 1 [facility] [place] 100 mg 1-22 tablet by it[facility] of tablet 00:00: mouth in [place] 00 the Medical morning. Branch albuterol 2021-05 Yes [id number] 2{puff} Inhale 2 [facility] (PROAIR 1-22 Puffs ity of HFA) 90 00:00: every 6 [place] mcg/actuati 00 (six) Medical on inhaler hours as Branc h needed for Wheezing, Shortness of Breath or Chest tightness. albuterol 2021-05 Yes [id number] 2{puff} Inhale 2 [facility] (PROAIR 1-22 Puffs ity of HFA) 90 00:00: every 6 [place] mcg/actuati 00 (six) Medical on inhaler hours as Branc h needed for Wheezing, Shortness of Breath or Chest tightness. albuterol 2021-05 Yes [id number] 2{puff} Inhale 2 [facility] (PROAIR 1-22 Puffs ity of HFA) 90 00:00: every 6 [place] mcg/actuati 00 (six) Medical on inhaler hours as Branc h needed for Wheezing, Shortness of Breath or Chest tightness. albuterol 2021-05 Yes [id number] 2{puff} Inhale 2 [facility] (PROAIR 1-22 Puffs ity of HFA) 90 00:00: every 6 [place] mcg/actuati 00 (six) Medical on inhaler hours as Branc h needed for Wheezing, Shortness of Breath or Chest tightness. albuterol 2021-05 Yes [id number] 2{puff} Inhale 2 [facility] (PROAIR 1-22 Puffs ity of HFA) 90 00:00: every 6 [place] mcg/actuati 00 (six) Medical on inhaler hours as Branc h needed for Wheezing, Shortness of Breath or Chest tightness. albuterol 2021-05 Yes [id number] 2{puff} Inhale 2 [facility] (PROAIR 1-22 Puffs ity of HFA) 90 00:00: every 6 [place] mcg/actuati 00 (six) Medical on inhaler hours as Branc h needed for Wheezing, Shortness of Breath or Chest tightness. albuterol 2021-05 Yes [id number] 2{puff} Inhale 2 [facility] (PROAIR 1-22 Puffs ity of HFA) 90 00:00: every 6 [place] mcg/actuati 00 (six) Medical on inhaler hours as Branc h needed for Wheezing, Shortness of Breath or Chest tightness. albuterol 2021-05 Yes [id number] 2{puff} Inhale 2 [facility] (PROAIR 1-22 Puffs ity of HFA) 90 00:00: every 6 [place] mcg/actuati 00 (six) Medical on inhaler hours as Branc h needed for Wheezing, Shortness of Breath or Chest tightness. albuterol 2021-05 Yes [id number] 2{puff} Inhale 2 [facility] (PROAIR 1-22 Puffs ity of HFA) 90 00:00: every 6 [place] mcg/actuati 00 (six) Medical on inhaler hours as Branc h needed for Wheezing, Shortness of Breath or Chest tightness. albuterol 2021-05 Yes [id number] 2{puff} Inhale 2 [facility] (PROAIR 1-22 Puffs ity of HFA) 90 00:00: every 6 [place] mcg/actuati 00 (six) Medical on inhaler hours as Branc h needed for Wheezing, Shortness of Breath or Chest tightness. albuterol 2021-05 Yes [id number] 2{puff} Inhale 2 [facility] (PROAIR 1-22 Puffs ity of HFA) 90 00:00: every 6 [place] mcg/actuati 00 (six) Medical on inhaler hours as Branc h needed for Wheezing, Shortness of Breath or Chest tightness. albuterol 2021-05 Yes [id number] 2{puff} Inhale 2 [facility] (PROAIR 1-22 Puffs ity of HFA) 90 00:00: every 6 [place] mcg/actuati 00 (six) Medical on inhaler hours as Branc h needed for Wheezing, Shortness of Breath or Chest tightness. albuterol 2021-05 Yes [id number] 2{puff} Inhale 2 [facility] (PROAIR 1-22 Puffs ity of HFA) 90 00:00: every 6 [place] mcg/actuati 00 (six) Medical on inhaler hours as Branc h needed for Wheezing, Shortness of Breath or Chest tightness. albuterol 2021-05 Yes [id number] 2{puff} Inhale 2 [facility] (PROAIR 1-22 Puffs ity of HFA) 90 00:00: every 6 [place] mcg/actuati 00 (six) Medical on inhaler hours as Branc h needed for Wheezing, Shortness of Breath or Chest tightness. albuterol 2021-05 Yes [id number] 2{puff} Inhale 2 [facility] (PROAIR 1-22 Puffs ity of HFA) 90 00:00: every 6 [place] mcg/actuati 00 (six) Medical on inhaler hours as Branc h needed for Wheezing, Shortness of Breath or Chest tightness. albuterol 2021-05 Yes [id number] 2{puff} Inhale 2 [facility] (PROAIR 1-22 Puffs ity of HFA) 90 00:00: every 6 [place] mcg/actuati 00 (six) Medical on inhaler hours as Branc h needed for Wheezing, Shortness of Breath or Chest tightness. albuterol 2021-05 Yes [id number] 2{puff} Inhale 2 [facility] (PROAIR 1-22 Puffs ity of HFA) 90 00:00: every 6 [place] mcg/actuati 00 (six) Medical on inhaler hours as Branc h needed for Wheezing, Shortness of Breath or Chest tightness. albuterol 2021-05 Yes [id number] 2{puff} Inhale 2 [facility] (PROAIR 1-22 Puffs ity of HFA) 90 00:00: every 6 [place] mcg/actuati 00 (six) Medical on inhaler hours as Branc h needed for Wheezing, Shortness of Breath or Chest tightness. albuterol 2021-05 Yes [id number] 2{puff} Inhale 2 [facility] (PROAIR 1-22 Puffs ity of HFA) 90 00:00: every 6 [place] mcg/actuati 00 (six) Medical on inhaler hours as Branc h needed for Wheezing, Shortness of Breath or Chest tightness. albuterol 2021-05 Yes [id number] 2{puff} Inhale 2 [facility] (PROAIR 1-22 Puffs ity of HFA) 90 00:00: every 6 [place] mcg/actuati 00 (six) Medical on inhaler hours as Branc h needed for Wheezing, Shortness of Breath or Chest tightness. albuterol 2021-05 Yes [id number] 2{puff} Inhale 2 [facility] (PROAIR 1-22 Puffs ity of HFA) 90 00:00: every 6 [place] mcg/actuati 00 (six) Medical on inhaler hours as Branc h needed for Wheezing, Shortness of Breath or Chest tightness. albuterol 2021-05 Yes [id number] 2{puff} Inhale 2 [facility] (PROAIR 1-22 Puffs ity of HFA) 90 00:00: every 6 [place] mcg/actuati 00 (six) Medical on inhaler hours as Branc h needed for Wheezing, Shortness of Breath or Chest tightness. albuterol 2021-05 Yes [id number] 2{puff} Inhale 2 [facility] (PROAIR 1-22 Puffs ity of HFA) 90 00:00: every 6 [place] mcg/actuati 00 (six) Medical on inhaler hours as Branc h needed for Wheezing, Shortness of Breath or Chest tightness. albuterol 2021-05 Yes [id number] 2{puff} Inhale 2 [facility] (PROAIR 1-22 Puffs ity of HFA) 90 00:00: every 6 [place] mcg/actuati 00 (six) Medical on inhaler hours as Branc h needed for Wheezing, Shortness of Breath or Chest tightness. albuterol 2021-05 Yes [id number] 2{puff} Inhale 2 [facility] (PROAIR 1-22 Puffs ity of HFA) 90 00:00: every 6 [place] mcg/actuati 00 (six) Medical on inhaler hours as Branc h needed for Wheezing, Shortness of Breath or Chest tightness. albuterol 2021-05 Yes [id number] 2{puff} Inhale 2 [facility] (PROAIR 1-22 Puffs ity of HFA) 90 00:00: every 6 [place] mcg/actuati 00 (six) Medical on inhaler hours as Branc h needed for Wheezing, Shortness of Breath or Chest tightness. albuterol 2021-05 Yes [id number] 2{puff} Inhale 2 [facility] (PROAIR 1-22 Puffs ity of HFA) 90 00:00: every 6 [place] mcg/actuati 00 (six) Medical on inhaler hours as Branc h needed for Wheezing, Shortness of Breath or Chest tightness. albuterol 2021-05 Yes [id number] 2{puff} Inhale 2 [facility] (PROAIR 1-22 Puffs ity of HFA) 90 00:00: every 6 [place] mcg/actuati 00 (six) Medical on inhaler hours as Branc h needed for Wheezing, Shortness of Breath or Chest tightness. albuterol 2021-05 Yes [id number] 2{puff} Inhale 2 [facility] (PROAIR 1-22 Puffs ity of HFA) 90 00:00: every 6 [place] mcg/actuati 00 (six) Medical on inhaler hours as Branc h needed for Wheezing, Shortness of Breath or Chest tightness. albuterol 2021-05 Yes [id number] 2{puff} Inhale 2 [facility] (PROAIR 1-22 Puffs ity of HFA) 90 00:00: every 6 [place] mcg/actuati 00 (six) Medical on inhaler hours as Branc h needed for Wheezing, Shortness of Breath or Chest tightness. albuterol 2021-05 Yes [id number] 2{puff} Inhale 2 [facility] (PROAIR 1-22 Puffs ity of HFA) 90 00:00: every 6 [place] mcg/actuati 00 (six) Medical on inhaler hours as Branc h needed for Wheezing, Shortness of Breath or Chest tightness. albuterol 2021-05 Yes [id number] 2{puff} Inhale 2 [facility] (PROAIR 1-22 Puffs ity of HFA) 90 00:00: every 6 [place] mcg/actuati 00 (six) Medical on inhaler hours as Branc h needed for Wheezing, Shortness of Breath or Chest tightness. albuterol 2021-05 Yes [id number] 2{puff} Inhale 2 [facility] (PROAIR 1-22 Puffs [...] evening. Indication s: atrial fibrillati on metFORMIN 0 Yes [id number] 1000mg Take 1 [facility] 1,000 mg 9-23 tablet by ity of tablet 00:00: mouth in [place] 00 the Medical morning Branch and 1 tablet in the evening. Take with meals. Omeprazole 2021-0 Yes [id number] 20mg Take 1 [facility] 20 mg 9-23 tablet by ity of tablet 00:00: mouth in [place] 00 the Medical morning. Branch metFORMIN 2021-0 Yes [id number] 1000mg Take 1 [facility] 1,000 mg 9-23 tablet by ity of tablet 00:00: mouth in [place] 00 the Medical morning Branch and 1 tablet in the evening. Take with meals. Omeprazole 2022-0 Yes [id number] 20mg Take 1 [facility] 20 mg 9-23 tablet by ity of tablet 00:00: mouth in [place] the morning. Branch metFORMIN 2022-0 Yes [id number] 1000mg Take 1 [facility] 1,000 mg 9-23 tablet by ity of tablet 00:00: mouth in [place] the morning Branch and 1 tablet in the evening. Take with meals. Omeprazole 2022-0 Yes [id number] 20mg Take 1 [facility] 20 mg 9-23 tablet by ity of tablet 00:00: mouth in [place] the morning. Branch metFORMIN 2022-0 Yes [id number] 1000mg Take 1 [facility] 1,000 mg 9-23 tablet by ity of tablet 00:00: mouth in [place] the Branch and 1 tablet in the evening. Take with meals. Omeprazole 2022-0 Yes [id number] 20mg Take 1 [facility] 20 mg 9-23 tablet by ity of tablet 00:00: mouth in [place] the . Branch metFORMIN 2022-0 Yes [id number] 1000mg Take 1 [facility] 1,000 mg 9-23 tablet by ity of tablet 00:00: mouth in [place] [address] the Branch and 1 tablet in the evening. Take with meals. Omeprazole 2022-0 Yes [id number] 20mg Take 1 [facility] 20 mg 9-23 tablet by ity of tablet 00:00: mouth in [place] the . Branch metFORMIN 2022-0 Yes [id number] 1000mg Take 1 [facility] 1,000 mg 9-23 tablet by ity of tablet 00:00: mouth in [place] the Branch and 1 tablet in the evening. Take with meals. Omeprazole 2022-0 Yes [id number] 20mg Take 1 [facility] 20 mg 9-23 tablet by ity of tablet 00:00: mouth in [place] the morning. Branch metFORMIN 2022-0 Yes [id number] 1000mg Take 1 [facility] 1,000 mg 9-23 tablet by ity of tablet 00:00: mouth in [place] [address] the Branch and 1 tablet in the evening. Take with meals. Omeprazole 2022-0 Yes [id number] 20mg Take 1 [facility] 20 mg 9-23 tablet by ity of tablet 00:00: mouth in [place] the morning. Branch metFORMIN 2022-0 Yes [id number] 1000mg Take 1 [facility] 1,000 mg 9-23 tablet by ity of tablet 00:00: mouth in [place] [address] the morning Branch and 1 tablet in the evening. Take with meals. Omeprazole 2022-0 Yes [id number] 20mg Take 1 [facility] 20 mg 9-23 tablet by ity of tablet 00:00: mouth in [place] the morning. Branch metFORMIN 2022-0 Yes [id number] 1000mg Take 1 [facility] 1,000 mg 9-23 tablet by ity of tablet 00:00: mouth in [place] [address] the [facility] morning Branch and 1 tablet in the evening. Take with meals. Omeprazole 2022-0 Yes [id number] 20mg Take 1 [facility] 20 mg 9-23 tablet by ity of tablet 00:00: mouth in [place] [address] the morning. Branch metFORMIN 2022-0 Yes [id number] 1000mg Take 1 [facility] 1,000 mg 9-23 tablet by ity of tablet 00:00: mouth in [place] [address] the [facility] morning [place] and 1 tablet in the evening. Take with meals. Omeprazole 2022-0 Yes [id number] 20mg Take 1 [facility] 20 mg 9-23 tablet by ity of tablet 00:00: mouth in [place] [address] the morning. Branch metFORMIN 2022-0 Yes [id number] 1000mg Take 1 [facility] 1,000 mg 9-23 tablet by ity of tablet 00:00: mouth in [address] [place] and 1 tablet in the evening. Take with meals. Omeprazole 2022-0 Yes [id number] 20mg Take 1 [facility] 20 mg 9-23 tablet by ity of tablet 00:00: mouth in [place] the morning. Branch metFORMIN 2022-0 Yes [id number] 1000mg Take 1 [facility] 1,000 mg 9-23 tablet by ity of tablet 00:00: mouth in [place] [address] the [facility] morning Branch and 1 tablet in the evening. Take with meals. Omeprazole 2022-0 Yes [id number] 20mg Take 1 [facility] 20 mg 9-23 tablet by ity of tablet 00:00: mouth in [place] [address] the morning. Branch metFORMIN 2022-0 Yes [id number] 1000mg Take 1 [facility] 1,000 mg 9-23 tablet by ity of tablet 00:00: mouth in [place] [address] the [facility] morning Branch and 1 tablet in the evening. Take with meals. Omeprazole 2022-0 Yes [id number] 20mg Take 1 [facility] 20 mg 9-23 tablet by ity of tablet 00:00: mouth in [place] the morning. Branch metFORMIN 2022-0 Yes [id number] 1000mg Take 1 [facility] 1,000 mg 9-23 tablet by ity of tablet 00:00: mouth in [place] [address] the Branch and 1 tablet in the evening. Take with meals. Omeprazole 2022-0 Yes [id number] 20mg Take 1 [facility] 20 mg 9-23 tablet by ity of tablet 00:00: mouth in [place] the morning. Branch metFORMIN 2022-0 Yes [id number] 1000mg Take 1 [facility] 1,000 mg 9-23 tablet by ity of tablet 00:00: mouth in [place] [address] the Branch and 1 tablet in the evening. Take with meals. Omeprazole 2022-0 Yes [id number] 20mg Take 1 [facility] 20 mg 9-23 tablet by ity of tablet 00:00: mouth in [place] the . Branch metFORMIN 2022-0 Yes [id number] 1000mg Take 1 [facility] 1,000 mg 9-23 tablet by ity of tablet 00:00: mouth in [address] [place] and 1 tablet in the evening. Take with meals. Omeprazole 2022-0 Yes [id number] 20mg Take 1 [facility] 20 mg 9-23 tablet by ity of tablet 00:00: mouth in [place] the . Branch metFORMIN 2022-0 Yes [id number] 1000mg Take 1 [facility] 1,000 mg 9-23 tablet by ity of tablet 00:00: mouth in [address] [place] and 1 tablet in the evening. Take with meals. Omeprazole 2022-0 Yes [id number] 20mg Take 1 [facility] 20 mg 9-23 tablet by ity of tablet 00:00: mouth in [place] the morning. Branch metFORMIN 2022-0 Yes [id number] 1000mg Take 1 [facility] 1,000 mg 9-23 tablet by ity of tablet 00:00: mouth in [address] Branch and 1 tablet in the evening. Take with meals. Omeprazole 2022-0 Yes [id number] 20mg Take 1 [facility] 20 mg 9-23 tablet by ity of tablet 00:00: mouth in [place] [address] the morning. Branch metFORMIN 2022-0 Yes [id number] 1000mg Take 1 [facility] 1,000 mg 9-23 tablet by ity of tablet 00:00: mouth in [place] 00 the Medical morning Branch and 1 tablet in the evening. Take with meals. Omeprazole 2022-0 Yes [id number] 20mg Take 1 [facility] 20 mg 9-23 tablet by ity of tablet 00:00: mouth in [place] 00 the Medical morning. Branch metFORMIN 2021-0 2022- No [id number] 1000mg Take 1 [facility] 1,000 mg 9-23 12-12 tablet by ity o f tablet 00:00: 00:00 mouth in [place] 00 :00 the Medical morning Branch and 1 tablet in the evening. Take with meals. Omeprazole 2-0 2022- No [id number] 20mg Take 1 [facility] 20 mg 9-23 12-12 tablet by ity of tablet 00:00: 00:00 mouth in [place] 00 :00 the Medical morning. Branch metFORMIN 2021-0 2022- No [id number] 1000mg Take 1 [facility] 1,000 mg 9-23 12-12 tablet by ity o f tablet 00:00: 00:00 mouth in [place] 00 :00 the Medical morning Branch and 1 tablet in the evening. Take with meals. Omeprazole 2021-0 2- No [id number] 20mg Take 1 [facility] 20 mg 9-23 12-12 tablet by ity of tablet 00:00: 00:00 mouth in [place] 00 :00 the Medical morning. Branch apixaban 2021-0 Yes [id number] 5mg Take 1 [facility] (ELIQUIS) 5 9-07 tablet by ity of mg tablet 00:00: mouth in [facility] 00 the Medical morning Branch and 1 tablet in the evening. Indication s: atrial fibrillati on apixaban 2-0 Yes 1358 5mg Take 1 [facility] (ELIQUIS) 5 9-07 tablet by ity of mg tablet 00:00: [place] 00 the Medical morning Branch and 1 tablet in the evening. Indication s: atrial fibrillati on apixaban 2-0 Yes 1358 5mg Take 1 [facility] (ELIQUIS) 5 9-07 tablet by ity of mg tablet 00:00: [place] 00 the Medical morning Branch and 1 tablet in the evening. Indication s: atrial fibrillati on apixaban 2-0 Yes 1358 5mg Take 1 [...] 1358 5mg Take 1 [facility] (ELIQUIS) 5 01-17 tablet by ity of mg tablet 00:00: [...] tablet 41 :00 Medical Branch montelukast Yes [id number] 10mg Take 1 [facility] (SINGULAIR) 8-25 tablet by ity of 10 mg 00:00: mouth in [place] tablet 00 the Medical morning. Branch montelukast Yes [id number] 10mg Take 1 [facility] (SINGULAIR) 8-25 tablet by ity of 10 mg 00:00: mouth in [place] tablet 00 the Medical morning. Branch montelukast Yes [id number] 10mg Take 1 [facility] (SINGULAIR) 8-25 tablet by ity of 10 mg 00:00: mouth in [place] tablet 00 the Medical morning. Branch montelukast 0 Yes [id number] 10mg Take 1 [facility] (SINGULAIR) 8-25 tablet by ity of 10 mg 00:00: mouth in [place] tablet 00 the Medical morning. Branch montelukast 0 Yes [id number] 10mg Take 1 [facility] (SINGULAIR) 8-25 tablet by ity of 10 mg 00:00: mouth in [place] tablet 00 the Medical morning. Branch montelukast 0 Yes [id number] 10mg Take 1 [facility] (SINGULAIR) 8-25 tablet by ity of 10 mg 00:00: mouth in [place] tablet 00 the Medical morning. Branch montelukast 0 Yes [id number] 10mg Take 1 [facility] (SINGULAIR) 8-25 tablet by ity of 10 mg 00:00: mouth in [place] tablet 00 the Medical morning. Branch montelukast 0 Yes [id number] 10mg Take 1 [facility] (SINGULAIR) 8-25 tablet by ity of 10 mg 00:00: mouth in [place] tablet 00 the Medical morning. [place] montelukast 0 Yes [id number] 10mg Take 1 [facility] (SINGULAIR) 8-25 tablet by ity of 10 mg 00:00: mouth in [place] tablet 00 the Medical morning. Branch montelukast 0 Yes [id number] 10mg Take 1 [facility] (SINGULAIR) 8-25 tablet by ity of 10 mg 00:00: mouth in [place] tablet 00 the Medical morning. Branch montelukast 0 Yes [id number] 10mg Take 1 [facility] (SINGULAIR) 8-25 tablet by ity of 10 mg 00:00: mouth in [place] tablet 00 the Medical morning. Branch montelukast 0 Yes [id number] 10mg Take 1 [facility] (SINGULAIR) 8-25 tablet by ity of 10 mg 00:00: mouth in [place] tablet 00 the Medical morning. Branch montelukast 0 Yes [id number] 10mg Take 1 [facility] (SINGULAIR) 8-25 tablet by ity of 10 mg 00:00: mouth in [place] tablet 00 the Medical morning. Branch montelukast 0 Yes [id number] 10mg Take 1 [facility] (SINGULAIR) 8-25 tablet by ity of 10 mg 00:00: mouth in [place] tablet 00 the Medical morning. Branch montelukast 0 Yes [id number] 10mg Take 1 [facility] (SINGULAIR) 8-25 tablet by ity of 10 mg 00:00: mouth in [place] tablet 00 the Medical morning. Branch montelukast 0 Yes [id number] 10mg Take 1 [facility] (SINGULAIR) 8-25 tablet by ity of 10 mg 00:00: mouth in [place] tablet 00 the Medical morning. Branch montelukast 0 Yes [id number] 10mg Take 1 [facility] (SINGULAIR) 8-25 tablet by ity of 10 mg 00:00: mouth in [place] tablet 00 the Medical morning. [place] montelukast 0 Yes [id number] 10mg Take 1 [facility] (SINGULAIR) 8-25 tablet by ity of 10 mg 00:00: mouth in [place] tablet 00 the Medical morning. [place] montelukast 0 Yes [id number] 10mg Take 1 [facility] (SINGULAIR) 8-25 tablet by ity of 10 mg 00:00: mouth in [place] tablet 00 the Medical morning. [place] montelukast 0 Yes [id number] 10mg Take 1 [facility] (SINGULAIR) 8-25 tablet by ity of 10 mg 00:00: mouth in [place] tablet 00 the Medical morning. [place] montelukast 0 Yes [id number] 10mg Take 1 [facility] (SINGULAIR) 8-25 tablet by ity of 10 mg 00:00: mouth in [place] tablet 00 the Medical morning. [place] montelukast 0 Yes [id number] 10mg Take 1 [facility] (SINGULAIR) 8-25 tablet by ity of 10 mg 00:00: mouth in [place] tablet 00 the Medical morning. Branch montelukast 0 Yes [id number] 10mg Take 1 [facility] (SINGULAIR) 8-25 tablet by ity of 10 mg 00:00: mouth in [place] tablet 00 the Medical morning. [place] montelukast 0 Yes [id number] 10mg Take 1 [facility] (SINGULAIR) 8-25 tablet by ity of 10 mg 00:00: mouth in [place] tablet 00 the Medical morning. [place] montelukast Yes [id number] 10mg Take 1 [facility] (SINGULAIR) 8-25 tablet by ity of 10 mg 00:00: mouth in [place] tablet 00 the Medical morning. Branch montelukast 0 Yes [id number] 10mg Take 1 [facility] (SINGULAIR) 8-25 tablet by ity of 10 mg 00:00: mouth in [place] tablet 00 the Medical morning. Branch montelukast 0 Yes [id number] 10mg Take 1 [facility] (SINGULAIR) 8-25 tablet by ity of 10 mg 00:00: mouth in [place] tablet 00 the Medical morning. [place] montelukast Yes [id number] 10mg Take 1 [facility] (SINGULAIR) 8-25 tablet by ity of 10 mg 00:00: mouth in [place] tablet 00 the Medical morning. [place] montelukast Yes [id number] 10mg Take 1 [facility] (SINGULAIR) 8-25 tablet by ity of 10 mg 00:00: mouth in [place] tablet 00 the Medical morning. [place] montelukast Yes [id number] 10mg Take 1 [facility] (SINGULAIR) 8-25 tablet by ity of 10 mg 00:00: mouth in [place] tablet 00 the Medical morning. [place] montelukast Yes [id number] 10mg Take 1 [facility] (SINGULAIR) 8-25 tablet by ity of 10 mg 00:00: mouth in [place] tablet 00 the Medical morning. [place] montelukast 2022- No [id number] 10mg Take 1 [facility] (SINGULAIR) 8-25 02-14 tablet by it y of 10 mg 00:00: 00:00 mouth in [place] tablet 00 :00 the Medical morning. [place] apixaban Yes [id number] 5mg Take 1 [facility] [...] s: atrial fibrillati on metFORMIN 2021-0 Yes [id number] 1000mg Take 1 [facility] 1,000 mg 8-02 tablet by ity of tablet 00:00: mouth in [place] [address] the Medical morning Branch and 1 tablet in the evening. Take with meals. metFORMIN 2021-0 Yes [id number] 1000mg Take 1 [facility] 1,000 mg 8-02 tablet by ity of tablet 00:00: mouth in [place] 00 the Medical morning Branch and 1 tablet in the evening. Take with meals. metFORMIN 2022-0 Yes [id number] 1000mg Take 1 [facility] 1,000 mg 8-02 tablet by ity of tablet 00:00: mouth in [place] 00 the Medical morning Branch and 1 tablet in the evening. Take with meals. metFORMIN 2-0 Yes [id number] 1000mg Take 1 [facility] 1,000 mg 8-02 tablet by ity of tablet 00:00: mouth in [place] [address] the [facility] morning [place] and 1 tablet in the evening. Take with meals. metFORMIN 2022-0 Yes [id number] 1000mg Take 1 [facility] 1,000 mg 8-02 tablet by ity of tablet 00:00: mouth in [place] [address] the Medical morning [place] and 1 tablet in the evening. Take with meals. metFORMIN 2022-0 Yes [id number] 1000mg Take 1 [facility] 1,000 mg 8-02 tablet by ity of tablet 00:00: mouth in [place] [address] the [facility] morning [place] and 1 tablet in the evening. Take with meals. metFORMIN 2022-0 Yes [id number] 1000mg Take 1 [facility] 1,000 mg 8-02 tablet by ity of tablet 00:00: mouth in [address] morning [place] and 1 tablet in the evening. Take with meals. metFORMIN 2-0 Yes [id number] 1000mg Take 1 [facility] 1,000 mg 8-02 tablet by ity of tablet 00:00: mouth in [address] morning [place] and 1 tablet in the evening. Take with meals. metFORMIN 2-0 Yes [id number] 1000mg Take 1 [facility] 1,000 mg 8-02 tablet by ity of tablet 00:00: mouth in [address] morning [place] and 1 tablet in the evening. Take with meals. metFORMIN 2-0 Yes [id number] 1000mg Take 1 [facility] 1,000 mg 8-02 tablet by ity of tablet 00:00: mouth in [address] morning [place] and 1 tablet in the evening. Take with meals. metFORMIN 2022-0 2022- No [id number] 1000mg Take 1 [facility] 1,000 mg 8-02 -23 tablet by ity o f tablet 00:00: 00:00 mouth in [place] 00 :00 the [facility] morning [place] and 1 tablet in the evening. Take with meals. metFORMIN 2022-0 2022- No [id number] 1000mg Take 1 [facility] 1,000 mg 8-02 -23 tablet by ity o f tablet 00:00: 00:00 mouth in [place] 00 :00 the [facility] morning [place] and 1 tablet in the evening. Take with meals. apixaban 2-0 Yes 1358 5mg Take 1 [...] Indication s: atrial fibrillati on chlorphenir Yes [id number] 4mg Take 1 [facility] amine 4 mg 6-29 tablet by ity of tablet 00:00: mouth [place] 00 every 6 Medical (six) Branch hours as needed for Allergies or Runny nose. calcium/mag Yes [id number] 1{each} Take 1 [facility] nesium/zinc 6-29 Each by ity o f (CALCIUM-MA 00:00: mouth [place] GNESUIUM-ZI 00 daily. Medica l [place]) Branch 333-133-5 mg Tab benzonatate Yes [id number] 100mg Take 1 [facility] 100 mg 6-29 capsule by ity of capsule 00:00: mouth 3 [place] 00 (three) Medical times Branch daily as needed for Cough. nirmatrelvi Yes [id number] 3{tbl} Take 3 [facility] r-ritonavir 6-29 tablets by it y of (PAXLOVID, 00:00: mouth [place] EUA,) 150 00 (two) Medical mg x 2- 100 times Branch mg tablet daily. chlorphenir Yes [id number] 4mg Take 1 [facility] amine 4 mg 6-29 tablet by ity of tablet 00:00: mouth [place] 00 every 6 Medical (six) Branch hours as needed for Allergies or Runny nose. calcium/mag Yes [id number] 1{each} Take 1 [facility] nesium/zinc 6-29 Each by ity o f (CALCIUM-MA 00:00: mouth [place] GNESUIUM-ZI 00 daily. Medica l [place]) Branch 333-133-5 mg Tab benzonatate 2021-0 Yes [id number] 100mg Take 1 [facility] 100 mg 6-29 capsule by ity of capsule 00:00: mouth 3 [place] 00 (three) Medical times Branch daily as needed for Cough. nirmatrelvi 2021-0 Yes [id number] 3{tbl} Take 3 [facility] r-ritonavir 6-29 tablets by it y of (PAXLOVID, 00:00: mouth [place] EUA,) 150 00 (two) Medical mg x 2- 100 times Branch mg tablet daily. chlorphenir 2-0 Yes [id number] 4mg Take 1 [facility] amine 4 mg 6-29 tablet by ity of tablet 00:00: mouth [place] 00 every 6 Medical (six) Branch hours as needed for Allergies or Runny nose. calcium/mag 2021-0 Yes [id number] 1{each} Take 1 [facility] nesium/zinc 6-29 Each by ity o f (CALCIUM-MA 00:00: mouth [place] GNESUIUM-ZI 00 daily. Medica l [place]) Branch 333-133-5 mg Tab benzonatate 2021-0 Yes [id number] 100mg Take 1 [facility] 100 mg 6-29 capsule by ity of capsule 00:00: mouth 3 [place] 00 (three) Medical times Branch daily as needed for Cough. nirmatrelvi 2021-0 Yes [id number] 3{tbl} Take 3 [facility] r-ritonavir 6-29 tablets by it y of (PAXLOVID, 00:00: mouth [place] EUA,) 150 00 (two) Medical mg x 2- 100 times Branch mg tablet daily. chlorphenir 2-0 Yes [id number] 4mg Take 1 [facility] amine 4 mg 6-29 tablet by ity of tablet 00:00: mouth [place] 00 every 6 Medical (six) Branch hours as needed for Allergies or Runny nose. calcium/mag 2-0 Yes [id number] 1{each} Take 1 [facility] nesium/zinc 6-29 Each by ity o f (CALCIUM-MA 00:00: mouth [place] GNESUIUM-ZI 00 daily. Medica l [place]) Branch 333-133-5 mg Tab benzonatate 2-0 Yes [id number] 100mg Take 1 [facility] 100 mg 6-29 capsule by ity of capsule 00:00: mouth 3 [place] 00 (three) Medical times Branch daily as needed for Cough. nirmatrelvi 2021-0 Yes [id number] 3{tbl} Take 3 [facility] r-ritonavir 6-29 tablets by it y of (PAXLOVID, 00:00: mouth [place] EUA,) 150 00 (two) Medical mg x 2- 100 times Branch mg tablet daily. chlorphenir 2-0 Yes [id number] 4mg Take 1 [facility] amine 4 mg 6-29 tablet by ity of tablet 00:00: mouth [place] 00 every 6 Medical (six) Branch hours as needed for Allergies or Runny nose. calcium/mag 2021-0 Yes [id number] 1{each} Take 1 [facility] nesium/zinc 6-29 Each by ity o f (CALCIUM-MA 00:00: mouth [place] GNESUIUM-ZI 00 daily. Medica l [place]) Branch 333-133-5 mg Tab benzonatate 2021-0 Yes [id number] 100mg Take 1 [facility] 100 mg 6-29 capsule by ity of capsule 00:00: mouth 3 [place] 00 (three) Medical times Branch daily as needed for Cough. nirmatrelvi 2021-0 Yes [id number] 3{tbl} Take 3 [facility] r-ritonavir 6-29 tablets by it y of (PAXLOVID, 00:00: mouth [place] EUA,) 150 00 (two) Medical mg x 2- 100 times Branch mg tablet daily. chlorphenir 2-0 Yes [id number] 4mg Take 1 [facility] amine 4 mg 6-29 tablet by ity of tablet 00:00: mouth [place] 00 every 6 Medical (six) Branch hours as needed for Allergies or Runny nose. calcium/mag 2022-0 Yes [id number] 1{each} Take 1 [facility] nesium/zinc 6-29 Each by ity o f (CALCIUM-MA 00:00: mouth [place] GNESUIUM-ZI 00 daily. Medica l [place]) Branch 333-133-5 mg Tab benzonatate 2022-0 Yes [id number] 100mg Take 1 [facility] 100 mg 6-29 capsule by ity of capsule 00:00: mouth 3 [place] 00 (three) Medical times Branch daily as needed for Cough. nirmatrelvi 2021-0 Yes [id number] 3{tbl} Take 3 [facility] r-ritonavir 6-29 tablets by it y of (PAXLOVID, 00:00: mouth [place] EUA,) 150 00 (two) Medical mg x 2- 100 times Branch mg tablet daily. chlorphenir 2-0 Yes [id number] 4mg Take 1 [facility] amine 4 mg 6-29 tablet by ity of tablet 00:00: mouth [place] 00 every 6 Medical (six) Branch hours as needed for Allergies or Runny nose. calcium/mag 2021-0 Yes [id number] 1{each} Take 1 [facility] nesium/zinc 6-29 Each by ity o f (CALCIUM-MA 00:00: mouth [place] GNESUIUM-ZI 00 daily. Medica l [place]) Branch 333-133-5 mg Tab benzonatate 2021-0 Yes [id number] 100mg Take 1 [facility] 100 mg 6-29 capsule by ity of capsule 00:00: mouth 3 [place] 00 (three) Medical times Branch daily as needed for Cough. nirmatrelvi 2021-0 Yes [id number] 3{tbl} Take 3 [facility] r-ritonavir 6-29 tablets by it y of (PAXLOVID, 00:00: mouth [place] EUA,) 150 00 (two) Medical mg x 2- 100 times Branch mg tablet daily. chlorphenir 2021-0 Yes [id number] 4mg Take 1 [facility] amine 4 mg 6-29 tablet by ity of tablet 00:00: mouth [place] 00 every 6 Medical (six) Branch hours as needed for Allergies or Runny nose. calcium/mag 2021-0 Yes [id number] 1{each} Take 1 [facility] nesium/zinc 6-29 Each by ity o f (CALCIUM-MA 00:00: mouth [place] GNESUIUM-ZI 00 daily. Medica l [place]) Branch 333-133-5 mg Tab benzonatate 2-0 Yes [id number] 100mg Take 1 [facility] 100 mg 6-29 capsule by ity of capsule 00:00: mouth 3 [place] 00 (three) Medical times Branch daily as needed for Cough. nirmatrelvi 2021-0 Yes [id number] 3{tbl} Take 3 [facility] r-ritonavir 6-29 tablets by it y of (PAXLOVID, 00:00: mouth [place] EUA,) 150 00 (two) Medical mg x 2- 100 times Branch mg tablet daily. chlorphenir 2-0 Yes [id number] 4mg Take 1 [facility] amine 4 mg 6-29 tablet by ity of tablet 00:00: mouth [place] 00 every 6 Medical (six) Branch hours as needed for Allergies or Runny nose. calcium/mag 2021-0 Yes [id number] 1{each} Take 1 [facility] nesium/zinc 6-29 Each by ity o f (CALCIUM-MA 00:00: mouth [place] GNESUIUM-ZI 00 daily. Medica l [place]) Branch 333-133-5 mg Tab benzonatate 2021-0 Yes [id number] 100mg Take 1 [facility] 100 mg 6-29 capsule by ity of capsule 00:00: mouth 3 [place] 00 (three) Medical times Branch daily as needed for Cough. nirmatrelvi 2021-0 Yes [id number] 3{tbl} Take 3 [facility] r-ritonavir 6-29 tablets by it y of (PAXLOVID, 00:00: mouth [place] EUA,) 150 00 (two) Medical mg x 2- 100 times Branch mg tablet daily. chlorphenir 2021-0 Yes [id number] 4mg Take 1 [facility] amine 4 mg 6-29 tablet by ity of tablet 00:00: mouth [place] 00 every 6 Medical (six) Branch hours as needed for Allergies or Runny nose. calcium/mag 2021-0 Yes [id number] 1{each} Take 1 [facility] nesium/zinc 6-29 Each by ity o f (CALCIUM-MA 00:00: mouth [place] GNESUIUM-ZI 00 daily. Medica l [place]) Branch 333-133-5 mg Tab benzonatate 202-0 Yes [id number] 100mg Take 1 [facility] 100 mg 6-29 capsule by ity of capsule 00:00: mouth 3 [place] 00 (three) Medical times Branch daily as needed for Cough. nirmatrelvi 2021-0 Yes [id number] 3{tbl} Take 3 [facility] r-ritonavir 6-29 tablets by it y of (PAXLOVID, 00:00: mouth 2 [place] EUA,) 150 00 (two) Medical mg x 2- 100 times Branch mg tablet daily. chlorphenir 2021- No [id number] 4mg Take 1 [facility] amine 4 mg 11-08 tablet by ity of tablet 00:00: 00:00 mouth [place] 00 :00 every 6 Medical (six) Branch hours as needed for Allergies or Runny nose. calcium/mag 2021- No [id number] 1{each} Take 1 [facility] nesium/zinc -02-02 Each by ity of (CALCIUM-MA 00:00: 00:00 mouth [place] GNESUIUM-ZI 00 :00 daily. Medica l [place]) Branch 333-133-5 mg Tab benzonatate No [id number] 100mg Take 1 [facility] 100 mg 11-08 capsule by ity of capsule 00:00: 00:00 mouth 3 [place] 00 :00 (three) Medical times Branch daily as needed for Cough. nirmatrelvi No [id number] 3{tbl} Take 3 [facility] r-ritonavir 11-08 tablets by i ty of (PAXLOVID, 00:00: 00:00 mouth 2 [place] EUA,) 150 00 :00 (two) Medical mg x 2- 100 times Branch mg tablet daily. chlorphenir No [id number] 4mg Take 1 [facility] amine 4 mg 11-08 tablet by ity of tablet 00:00: 00:00 mouth [place] 00 :00 every 6 Medical (six) Branch hours as needed for Allergies or Runny nose. calcium/mag No [id number] 1{each} Take 1 [facility] nesium/zinc -02-02 Each by ity of (CALCIUM-MA 00:00: 00:00 mouth [place] GNESUIUM-ZI 00 :00 daily. Medica l [place]) Branch 333-133-5 mg Tab benzonatate 2021- No [id number] 100mg Take 1 [facility] 100 mg 11-08 capsule by ity of capsule 00:00: 00:00 mouth 3 [place] 00 :00 (three) Medical times Branch daily as needed for Cough. nirmatrelvi 2021- No [id number] 3{tbl} Take 3 [facility] r-ritonavir 11-08 09-23 tablets by i ty of (PAXLOVID, 00:00: 00:00 mouth 2 [place] EUA,) 150 00 :00 (two) Medical mg x 2- 100 times Branch mg tablet daily. vitamin 2021- No [id number] 1{tbl} Take 1 [facility] D3-folic 11-08 07-30 tablet by ity o f acid 125 00:00: 04:59 mouth [place] mcg (5,000 00 :00 daily for Medi lula unit)-1 mg 30 days. Branc h Tab mupirocin 2 Yes [id number] Apply to [facility] % ointment 6-15 area(s) 3 ity of 00:00: (three) [place] 00 times Medical daily. Branch mupirocin 2 2021-0 Yes [id number] Apply to [facility] % ointment 6-15 area(s) 3 ity of 00:00: (three) [place] 00 times Medical daily. Branch mupirocin 2 2021-0 Yes [id number] Apply to [facility] % ointment 6-15 area(s) 3 ity of 00:00: (three) [place] 00 times Medical daily. Branch mupirocin 2 2021-0 Yes [id number] Apply to [facility] % ointment 6-15 area(s) 3 ity of 00:00: (three) [place] 00 times Medical daily. Branch mupirocin 2 2021-0 Yes [id number] Apply to [facility] % ointment 6-15 area(s) 3 ity of 00:00: (three) [place] 00 times Medical daily. Branch mupirocin 2 2021-0 Yes [id number] Apply to [facility] % ointment 6-15 area(s) 3 ity of 00:00: (three) [place] 00 times Medical daily. Branch mupirocin 2 2021-0 Yes [id number] Apply to [facility] % ointment 6-15 area(s) 3 ity of 00:00: (three) [place] 00 times Medical daily. Branch mupirocin 2 2021-0 Yes [id number] Apply to [facility] % ointment 6-15 area(s) 3 ity of 00:00: (three) [place] 00 times Medical daily. Branch mupirocin 2 2-0 Yes [id number] Apply to [facility] % ointment 6-15 area(s) 3 ity of 00:00: (three) [place] 00 times Medical daily. Branch mupirocin 2 2-0 Yes [id number] Apply to [facility] % ointment 6-15 area(s) 3 ity of 00:00: (three) [place] 00 times Medical daily. Branch mupirocin 2 2-0 Yes [id number] Apply to Univers % ointment 6-15 area(s) 3 ity of 00:00: (three) [place] 00 times Medical daily. Branch mupirocin 2 2-0 Yes [id number] Apply to Univers % ointment 6-15 area(s) 3 ity of 00:00: (three) [place] 00 times Medical daily. Branch mupirocin 2 2-0 Yes [id number] Apply to Univers % ointment 6-15 area(s) 3 ity of 00:00: (three) [place] 00 times Medical daily. Branch mupirocin 2 2021-0 Yes [id number] Apply to [facility] % ointment 6-15 area(s) 3 ity of 00:00: (three) [place] 00 times Medical daily. Branch mupirocin 2 2-0 Yes [id number] Apply to [facility] % ointment 6-15 area(s) 3 ity of 00:00: (three) [place] 00 times Medical daily. Branch mupirocin 2 2-0 Yes [id number] Apply to [facility] % ointment 6-15 area(s) 3 ity of 00:00: (three) [place] 00 times Medical daily. Branch mupirocin 2 2-0 Yes [id number] Apply to [facility] % ointment 6-15 area(s) 3 ity of 00:00: (three) [place] 00 times Medical daily. Branch mupirocin 2 2-0 Yes [id number] Apply to [facility] % ointment 6-15 area(s) 3 ity of 00:00: (three) [place] 00 times Medical daily. Branch mupirocin 2 2-0 Yes [id number] Apply to [facility] % ointment 6-15 area(s) 3 ity of 00:00: (three) [place] 00 times Medical daily. Branch mupirocin 2 2-0 Yes [id number] Apply to [facility] % ointment 6-15 area(s) 3 ity of 00:00: (three) [place] 00 times Medical daily. Branch mupirocin 2 2-0 Yes [id number] Apply to [facility] % ointment 6-15 area(s) 3 ity of 00:00: (three) [place] 00 times Medical daily. Branch mupirocin 2 2-0 Yes [id number] Apply to [facility] % ointment 6-15 area(s) 3 ity of 00:00: (three) [place] 00 times Medical daily. Branch mupirocin 2 2-0 Yes [id number] Apply to [facility] % ointment 6-15 area(s) 3 ity of 00:00: (three) [place] 00 times Medical daily. Branch mupirocin 2 2021-0 Yes [id number] Apply to [facility] % ointment 6-15 area(s) 3 ity of 00:00: (three) [place] 00 times Medical daily. Branch mupirocin 2 2-0 Yes [id number] Apply to [facility] % ointment 6-15 area(s) 3 ity of 00:00: (three) [place] 00 times Medical daily. Branch mupirocin 2 2-0 Yes [id number] Apply to [facility] % ointment 6-15 area(s) 3 ity of 00:00: (three) [place] 00 times Medical daily. Branch mupirocin 2 2-0 Yes [id number] Apply to [facility] % ointment 6-15 area(s) 3 ity of 00:00: (three) [place] 00 times Medical daily. Branch mupirocin 2 2-0 Yes [id number] Apply to [facility] % ointment 6-15 area(s) 3 ity of 00:00: (three) [place] 00 times Medical daily. Branch mupirocin 2 2-0 Yes [id number] Apply to [facility] % ointment 6-15 area(s) 3 ity of 00:00: (three) [place] 00 times Medical daily. Branch mupirocin 2 2-0 Yes [id number] Apply to [facility] % ointment 6-15 area(s) 3 ity of 00:00: (three) [place] 00 times Medical daily. Branch mupirocin 2 2-0 Yes [id number] Apply to [facility] % ointment 6-15 area(s) 3 ity of 00:00: (three) [place] 00 times Medical daily. Branch mupirocin 2 2-0 Yes [id number] Apply to [facility] % ointment 6-15 area(s) 3 ity of 00:00: (three) [place] 00 times Medical daily. Branch mupirocin 2 2-0 Yes [id number] Apply to [facility] % ointment 6-15 area(s) 3 ity of 00:00: (three) [place] 00 times Medical daily. Branch mupirocin 2 2-0 Yes [id number] Apply to [facility] % ointment 6-15 area(s) 3 ity of 00:00: (three) [place] 00 times Medical daily. Branch mupirocin 2 2021-0 Yes [id number] Apply to [facility] % ointment 6-15 area(s) 3 ity of 00:00: (three) [place] 00 times Medical daily. Branch mupirocin 2 2021-0 Yes [id number] Apply to [facility] % ointment 6-15 area(s) 3 ity of 00:00: (three) [place] 00 times Medical daily. Branch mupirocin 2 2021-0 Yes [id number] Apply to [facility] % ointment 6-15 area(s) 3 ity of 00:00: (three) [place] 00 times Medical daily. Branch mupirocin 2 2-0 Yes [id number] Apply to [facility] % ointment 6-15 area(s) 3 ity of 00:00: (three) [place] 00 times Medical daily. Branch mupirocin 2 2-0 Yes [id number] Apply to [facility] % ointment 6-15 area(s) 3 ity of 00:00: (three) [place] 00 times Medical daily. Branch mupirocin 2 2-0 Yes [id number] Apply to [facility] % ointment 6-15 area(s) 3 ity of 00:00: (three) [place] 00 times Medical daily. Branch mupirocin 2 2-0 Yes [id number] Apply to [facility] % ointment 6-15 area(s) 3 ity of 00:00: (three) [place] 00 times Medical daily. Branch mupirocin 2 2-0 Yes [id number] Apply to [facility] % ointment 6-15 area(s) 3 ity of 00:00: (three) [place] 00 times Medical daily. Branch mupirocin 2 2021-0 Yes [id number] Apply to [facility] % ointment 6-15 area(s) 3 ity of 00:00: (three) [place] 00 times Medical daily. Branch mupirocin 2 2-0 Yes [id number] Apply to [facility] % ointment 6-15 area(s) 3 ity of 00:00: (three) [place] 00 times Medical daily. Branch mupirocin 2 2021-0 Yes [id number] Apply to [facility] % ointment 6-15 area(s) 3 ity of 00:00: (three) [place] 00 times Medical daily. Branch mupirocin 2 2021-0 Yes [id number] Apply to [facility] % ointment 6-15 area(s) 3 ity of 00:00: (three) [place] 00 times Medical daily. Branch mupirocin 2 2021-0 Yes [id number] Apply to [facility] % ointment 6-15 area(s) 3 ity of 00:00: (three) [place] 00 times Medical daily. Branch mupirocin 2 2021-0 Yes [id number] Apply to [facility] % ointment 6-15 area(s) 3 ity of 00:00: (three) [place] 00 times Medical daily. Branch mupirocin 2 2-0 Yes [id number] Apply to [facility] % ointment 6-15 area(s) 3 ity of 00:00: (three) [place] 00 times Medical daily. Branch mupirocin 2 2-0 Yes [id number] Apply to [facility] % ointment 6-15 area(s) 3 ity of 00:00: (three) [place] 00 times Medical daily. Branch mupirocin 2 2-0 Yes [id number] Apply to [facility] % ointment 6-15 area(s) 3 ity of 00:00: (three) [place] 00 times Medical daily. Branch mupirocin 2 2022-0 Yes [id number] Apply to [facility] % ointment 6-15 area(s) 3 ity of 00:00: (three) [place] 00 times Medical daily. Branch mupirocin 2 2-0 Yes [id number] Apply to [facility] % ointment 6-15 area(s) 3 ity of 00:00: (three) [place] 00 times Medical daily. Branch mupirocin 2 2-0 Yes [id number] Apply to [facility] % ointment 6-15 area(s) 3 ity of 00:00: (three) [place] 00 times Medical daily. Branch mupirocin 2 2-0 Yes [id number] Apply to [facility] % ointment 6-15 area(s) 3 ity of 00:00: (three) [place] 00 times Medical daily. Branch mupirocin 2 2-0 Yes [id number] Apply to [facility] % ointment 6-15 area(s) 3 ity of 00:00: (three) [place] 00 times Medical daily. Branch mupirocin 2 2-0 Yes [id number] Apply to [facility] % ointment 6-15 area(s) 3 ity of 00:00: (three) [place] 00 times Medical daily. Branch mupirocin 2 2-0 Yes [id number] Apply to [facility] % ointment 6-15 area(s) 3 ity of 00:00: (three) [place] 00 times Medical daily. Branch mupirocin 2 2-0 Yes [id number] Apply to [facility] % ointment 6-15 area(s) 3 ity of 00:00: (three) [place] 00 times Medical daily. Branch mupirocin 2 2-0 Yes [id number] Apply to [facility] % ointment 6-15 area(s) 3 ity of 00:00: (three) [place] 00 times Medical daily. Branch mupirocin 2 2022-0 Yes [id number] Apply to [facility] % ointment 6-15 area(s) 3 ity of 00:00: (three) [place] 00 times Medical daily. Branch mupirocin 2 2-0 Yes [id number] Apply to [facility] % ointment 6-15 area(s) 3 ity of 00:00: (three) [place] 00 times Medical daily. Branch mupirocin 2 2-0 Yes [id number] Apply to [facility] % ointment 6-15 area(s) 3 ity of 00:00: (three) [place] 00 times Medical daily. Branch mupirocin 2 2-0 Yes [id number] Apply to [facility] % ointment 6-15 area(s) 3 ity of 00:00: (three) [place] 00 times Medical daily. Branch mupirocin 2 2-0 Yes [id number] Apply to [facility] % ointment 6-15 area(s) 3 ity of 00:00: (three) [place] 00 times Medical daily. Branch mupirocin 2 2-0 Yes [id number] Apply to [facility] % ointment 6-15 area(s) 3 ity of 00:00: (three) [place] 00 times Medical daily. Branch mupirocin 2 2-0 Yes [id number] Apply to [facility] % ointment 6-15 area(s) 3 ity of 00:00: (three) [place] 00 times Medical daily. Branch mupirocin 2 2021-0 Yes [id number] Apply to [facility] % ointment 6-15 area(s) 3 ity of 00:00: (three) [place] 00 times Medical daily. Branch mupirocin 2 2-0 Yes [id number] Apply to [facility] % ointment 6-15 area(s) 3 ity of 00:00: (three) [place] 00 times Medical daily. Branch mupirocin 2 2-0 Yes [id number] Apply to [facility] % ointment 6-15 area(s) 3 ity of 00:00: (three) [place] 00 times Medical daily. Branch mupirocin 2 2-0 Yes [id number] Apply to [facility] % ointment 6-15 area(s) 3 ity of 00:00: (three) [place] 00 times Medical daily. Branch mupirocin 2 2-0 Yes [id number] Apply to [facility] % ointment 6-15 area(s) 3 ity of 00:00: (three) [place] 00 times Medical daily. Branch mupirocin 2 2-0 Yes [id number] Apply to [facility] % ointment 6-15 area(s) 3 ity of 00:00: (three) [place] 00 times Medical daily. Branch mupirocin 2 2022-0 Yes [id number] Apply to [facility] % ointment 6-15 area(s) 3 ity of 00:00: (three) [place] 00 times Medical daily. Branch mupirocin 2 2-0 Yes [id number] Apply to [facility] % ointment 6-15 area(s) 3 ity of 00:00: (three) [place] 00 times Medical daily. Branch mupirocin 2 2-0 Yes [id number] Apply to [facility] % ointment 6-15 area(s) 3 ity of 00:00: (three) [place] 00 times Medical daily. Branch mupirocin 2 2-0 Yes [id number] Apply to [facility] % ointment 6-15 area(s) 3 ity of 00:00: (three) [place] 00 times Medical daily. Branch mupirocin 2 2-0 Yes [id number] Apply to [facility] % ointment 6-15 area(s) 3 ity of 00:00: (three) [place] times Medical daily. Branch mupirocin 2 2-0 Yes [id number] Apply to [facility] % ointment 6-15 area(s) 3 ity of 00:00: (three) [place] times Medical daily. Branch mupirocin 2 2-0 Yes [id number] Apply to [facility] % ointment 6-15 area(s) 3 ity of 00:00: (three) [place] 00 times Medical daily. Branch mupirocin 2 2-0 Yes [id number] Apply to [facility] % ointment 6-15 area(s) 3 ity of 00:00: (three) [place] times Medical daily. Branch mupirocin 2 2-0 Yes [id number] Apply to [facility] % ointment 6-15 area(s) 3 ity of 00:00: (three) [place] 00 times Medical daily. Branch mupirocin 2 2022-0 Yes [id number] Apply to [facility] % ointment 6-15 area(s) 3 ity of 00:00: (three) [place] 00 times Medical daily. Branch mupirocin 2 2-0 Yes [id number] Apply to [facility] % ointment 6-15 area(s) 3 ity of 00:00: (three) [place] 00 times Medical daily. Branch mupirocin 2 2-0 Yes [id number] Apply to [facility] % ointment 6-15 area(s) 3 ity of 00:00: (three) [place] 00 times Medical daily. Branch mupirocin 2 2-0 Yes [id number] Apply to [facility] % ointment 6-15 area(s) 3 ity of 00:00: (three) [place] 00 times Medical daily. Branch mupirocin 2 2-0 Yes [id number] Apply to [facility] % ointment 6-15 area(s) 3 ity of 00:00: (three) [place] 00 times Medical daily. Branch mupirocin 2 2-0 Yes [id number] Apply to [facility] % ointment 6-15 area(s) 3 ity of 00:00: (three) [place] 00 times Medical daily. Branch mupirocin 2 2-0 Yes [id number] Apply to [facility] % ointment 6-15 area(s) 3 ity of 00:00: (three) [place] 00 times Medical daily. Branch mupirocin 2 2021-0 Yes [id number] Apply to [facility] % ointment 6-15 area(s) 3 ity of 00:00: (three) [place] 00 times Medical daily. Branch mupirocin 2 2-0 Yes [id number] Apply to [facility] % ointment 6-15 area(s) 3 ity of 00:00: (three) [place] 00 times Medical daily. Branch mupirocin 2 2-0 Yes [id number] Apply to [facility] % ointment 6-15 area(s) 3 ity of 00:00: (three) [place] 00 times Medical daily. Branch mupirocin 2 2-0 Yes [id number] Apply to [facility] % ointment 6-15 area(s) 3 ity of 00:00: (three) [place] 00 times Medical daily. Branch mupirocin 2 2-0 Yes [id number] Apply to [facility] % ointment 6-15 area(s) 3 ity of 00:00: (three) [place] 00 times Medical daily. Branch mupirocin 2 2022-0 3- No [id number] Apply to [facility] % ointment 6-15 08-23 area(s) 3 ity of 00:00: 00:00 (three) [place] 00 :00 times Medical daily. Branch mupirocin 2 3- No [id number] Apply to [facility] % ointment 10-25 area(s) 3 ity of 00:00: 00:00 (three) [place] 00 :00 times Medical daily. Branch isosorbide 2021-0 Yes [id number] 60mg Take 1 U nivers mononitrate 5-05 tablet by ity of 60 mg 24 hr 00:00: mouth [place] tablet 00 daily. Medical Branch isosorbide 2021-0 Yes [id number] 60mg Take 1 U nivers mononitrate 5-05 tablet by ity of 60 mg 24 hr 00:00: mouth [place] tablet 00 daily. Medical Branch isosorbide 2021-0 Yes [id number] 60mg Take 1 U nivers mononitrate 5-05 tablet by ity of 60 mg 24 hr 00:00: mouth [place] tablet 00 daily. Medical Branch isosorbide 2021-0 Yes [id number] 60mg Take 1 [facility] mononitrate 5-05 tablet by ity of 60 mg 24 hr 00:00: mouth [place] tablet 00 daily. [facility] isosorbide 2021-0 Yes [id number] 60mg Take 1 [facility] mononitrate 5-05 tablet by ity of 60 mg 24 hr 00:00: mouth [place] tablet 00 daily. [facility] isosorbide 2021-0 Yes [id number] 60mg Take 1 [facility] mononitrate 5-05 tablet by ity of 60 mg 24 hr 00:00: mouth [place] tablet 00 daily. [facility] isosorbide 2021-0 Yes [id number] 60mg Take 1 [facility] mononitrate 5-05 tablet by ity of 60 mg 24 hr 00:00: mouth [place] tablet 00 daily. [facility] isosorbide 2021-0 Yes [id number] 60mg Take 1 [facility] mononitrate 5-05 tablet by ity of 60 mg 24 hr 00:00: mouth [place] tablet 00 daily. [facility] isosorbide 2021-0 Yes [id number] 60mg Take 1 [facility] mononitrate 5-05 tablet by ity of 60 mg 24 hr 00:00: mouth [place] tablet 00 daily. [facility] isosorbide 2021-0 Yes [id number] 60mg Take 1 [facility] mononitrate 5-05 tablet by ity of 60 mg 24 hr 00:00: mouth [place] tablet 00 daily. [facility] isosorbide 2021-0 Yes [id number] 60mg Take 1 [facility] mononitrate 5-05 tablet by ity of 60 mg 24 hr 00:00: mouth [place] tablet 00 daily. [facility] isosorbide 2021-0 Yes [id number] 60mg Take 1 [facility] mononitrate 5-05 tablet by ity of 60 mg 24 hr 00:00: mouth [place] tablet 00 daily. [facility] isosorbide 2021-0 Yes [id number] 60mg Take 1 [facility] mononitrate 5-05 tablet by ity of 60 mg 24 hr 00:00: mouth [place] tablet 00 daily. [facility] isosorbide 2021-0 Yes [id number] 60mg Take 1 [facility] mononitrate 5-05 tablet by ity of 60 mg 24 hr 00:00: mouth [place] tablet 00 daily. [facility] isosorbide 2021-0 Yes [id number] 60mg Take 1 [facility] mononitrate 5-05 tablet by ity of 60 mg 24 hr 00:00: mouth [place] tablet 00 daily. [facility] isosorbide 2021-0 Yes [id number] 60mg Take 1 [facility] mononitrate 5-05 tablet by ity of 60 mg 24 hr 00:00: mouth [place] tablet 00 daily. [facility] isosorbide 2021-0 Yes [id number] 60mg Take 1 [facility] mononitrate 5-05 tablet by ity of 60 mg 24 hr 00:00: mouth [place] tablet 00 daily. [facility] isosorbide 2021-0 Yes [id number] 60mg Take 1 [facility] mononitrate 5-05 tablet by ity of 60 mg 24 hr 00:00: mouth [place] tablet 00 daily. [facility] isosorbide 2-0 Yes [id number] 60mg Take 1 [facility] mononitrate 5-05 tablet by ity of 60 mg 24 hr 00:00: mouth [place] tablet 00 daily. [facility] isosorbide 2-0 Yes [id number] 60mg Take 1 [facility] mononitrate 5-05 tablet by ity of 60 mg 24 hr 00:00: mouth [place] tablet 00 daily. [facility] isosorbide 2-0 Yes [id number] 60mg Take 1 [facility] mononitrate 5-05 tablet by ity of 60 mg 24 hr 00:00: mouth [place] tablet 00 daily. [facility] isosorbide 2-0 Yes [id number] 60mg Take 1 [facility] mononitrate 5-05 tablet by ity of 60 mg 24 hr 00:00: mouth [place] tablet 00 daily. [facility] isosorbide 2-0 Yes [id number] 60mg Take 1 [facility] mononitrate 5-05 tablet by ity of 60 mg 24 hr 00:00: mouth [place] tablet 00 daily. [facility] isosorbide 2-0 Yes [id number] 60mg Take 1 [facility] mononitrate 5-05 tablet by ity of 60 mg 24 hr 00:00: mouth [place] tablet 00 daily. [facility] isosorbide 2-0 Yes [id number] 60mg Take 1 [facility] mononitrate 5-05 tablet by ity of 60 mg 24 hr 00:00: mouth [place] tablet 00 daily. [facility] isosorbide 2-0 Yes [id number] 60mg Take 1 [facility] mononitrate 5-05 tablet by ity of 60 mg 24 hr 00:00: mouth [place] tablet 00 daily. [facility] isosorbide 2-0 Yes [id number] 60mg Take 1 [facility] mononitrate 5-05 tablet by ity of 60 mg 24 hr 00:00: mouth [place] tablet 00 daily. [facility] isosorbide 2-0 Yes [id number] 60mg Take 1 [facility] mononitrate 5-05 tablet by ity of 60 mg 24 hr 00:00: mouth [place] tablet 00 daily. [facility] isosorbide 2-0 Yes [id number] 60mg Take 1 [facility] mononitrate 5-05 tablet by ity of 60 mg 24 hr 00:00: mouth [place] tablet 00 daily. [facility] isosorbide 2-0 Yes [id number] 60mg Take 1 [facility] mononitrate 5-05 tablet by ity of 60 mg 24 hr 00:00: mouth [place] tablet 00 daily. [facility] isosorbide 2-0 Yes [id number] 60mg Take 1 [facility] mononitrate 5-05 tablet by ity of 60 mg 24 hr 00:00: mouth [place] tablet 00 daily. [facility] isosorbide 2-0 Yes [id number] 60mg Take 1 [facility] mononitrate 5-05 tablet by ity of 60 mg 24 hr 00:00: mouth [place] tablet 00 daily. [facility] isosorbide 2-0 Yes [id number] 60mg Take 1 [facility] mononitrate 5-05 tablet by ity of 60 mg 24 hr 00:00: mouth [place] tablet 00 daily. [facility] isosorbide 2-0 Yes [id number] 60mg Take 1 [facility] mononitrate 5-05 tablet by ity of 60 mg 24 hr 00:00: mouth [place] tablet 00 daily. [facility] isosorbide 2-0 Yes [id number] 60mg Take 1 [facility] mononitrate 5-05 tablet by ity of 60 mg 24 hr 00:00: mouth [place] tablet 00 daily. [facility] isosorbide 2021-0 Yes [id number] 60mg Take 1 [facility] mononitrate 5-05 tablet by ity of 60 mg 24 hr 00:00: mouth [place] tablet 00 daily. [facility] isosorbide 2-0 Yes [id number] 60mg Take 1 [facility] mononitrate 5-05 tablet by ity of 60 mg 24 hr 00:00: mouth [place] tablet 00 daily. [facility] isosorbide 2-0 Yes [id number] 60mg Take 1 [facility] mononitrate 5-05 tablet by ity of 60 mg 24 hr 00:00: mouth [place] tablet 00 daily. [facility] isosorbide 2-0 Yes [id number] 60mg Take 1 [facility] mononitrate 5-05 tablet by ity of 60 mg 24 hr 00:00: mouth [place] tablet 00 daily. [facility] isosorbide 2-0 Yes [id number] 60mg Take 1 [facility] mononitrate 5-05 tablet by ity of 60 mg 24 hr 00:00: mouth [place] tablet 00 daily. [facility] isosorbide 2-0 Yes [id number] 60mg Take 1 [facility] mononitrate 5-05 tablet by ity of 60 mg 24 hr 00:00: mouth [place] tablet 00 daily. [facility] isosorbide 2-0 Yes [id number] 60mg Take 1 [facility] mononitrate 5-05 tablet by ity of 60 mg 24 hr 00:00: mouth [place] tablet 00 daily. [facility] isosorbide 2-0 Yes [id number] 60mg Take 1 [facility] mononitrate 5-05 tablet by ity of 60 mg 24 hr 00:00: mouth [place] tablet 00 daily. [facility] isosorbide 2-0 Yes [id number] 60mg Take 1 [facility] mononitrate 5-05 tablet by ity of 60 mg 24 hr 00:00: mouth [place] tablet 00 daily. [facility] isosorbide 2-0 Yes [id number] 60mg Take 1 [facility] mononitrate 5-05 tablet by ity of 60 mg 24 hr 00:00: mouth [place] tablet 00 daily. [facility] isosorbide 2021-0 Yes [id number] 60mg Take 1 [facility] mononitrate 5-05 tablet by ity of 60 mg 24 hr 00:00: mouth [place] tablet 00 daily. [facility] isosorbide 2021-0 Yes [id number] 60mg Take 1 [facility] mononitrate 5-05 tablet by ity of 60 mg 24 hr 00:00: mouth [place] tablet 00 daily. [facility] isosorbide 2021-0 Yes [id number] 60mg Take 1 [facility] mononitrate 5-05 tablet by ity of 60 mg 24 hr 00:00: mouth [place] tablet 00 daily. [facility] isosorbide 2021-0 Yes [id number] 60mg Take 1 [facility] mononitrate 5-05 tablet by ity of 60 mg 24 hr 00:00: mouth [place] tablet 00 daily. [facility] isosorbide 2-0 Yes [id number] 60mg Take 1 [facility] mononitrate 5-05 tablet by ity of 60 mg 24 hr 00:00: mouth [place] tablet 00 daily. [facility] isosorbide 2-0 Yes [id number] 60mg Take 1 [facility] mononitrate 5-05 tablet by ity of 60 mg 24 hr 00:00: mouth [place] tablet 00 daily. [facility] isosorbide 2-0 Yes [id number] 60mg Take 1 [facility] mononitrate 5-05 tablet by ity of 60 mg 24 hr 00:00: mouth [place] tablet 00 daily. [facility] isosorbide 2-0 Yes [id number] 60mg Take 1 [facility] mononitrate 5-05 tablet by ity of 60 mg 24 hr 00:00: mouth [place] tablet 00 daily. [facility] isosorbide 2021-0 Yes [id number] 60mg Take 1 [facility] mononitrate 5-05 tablet by ity of 60 mg 24 hr 00:00: mouth [place] tablet 00 daily. [facility] isosorbide 2021-0 Yes [id number] 60mg Take 1 [facility] mononitrate 5-05 tablet by ity of 60 mg 24 hr 00:00: mouth [place] tablet 00 daily. [facility] isosorbide 2021-0 Yes [id number] 60mg Take 1 [facility] mononitrate 5-05 tablet by ity of 60 mg 24 hr 00:00: mouth [place] tablet 00 daily. [facility] isosorbide 2021-0 Yes [id number] 60mg Take 1 [facility] mononitrate 5-05 tablet by ity of 60 mg 24 hr 00:00: mouth [place] tablet 00 daily. [facility] isosorbide 2021-0 Yes [id number] 60mg Take 1 [facility] mononitrate 5-05 tablet by ity of 60 mg 24 hr 00:00: mouth [place] tablet 00 daily. [facility] isosorbide 2021-0 Yes [id number] 60mg Take 1 [facility] mononitrate 5-05 tablet by ity of 60 mg 24 hr 00:00: mouth [place] tablet 00 daily. [facility] isosorbide 2021-0 Yes [id number] 60mg Take 1 [facility] mononitrate 5-05 tablet by ity of 60 mg 24 hr 00:00: mouth [place] tablet 00 daily. [facility] isosorbide 2021-0 Yes [id number] 60mg Take 1 [facility] mononitrate 5-05 tablet by ity of 60 mg 24 hr 00:00: mouth [place] tablet 00 daily. [facility] isosorbide 2021-0 Yes [id number] 60mg Take 1 [facility] mononitrate 5-05 tablet by ity of 60 mg 24 hr 00:00: mouth [place] tablet 00 daily. [facility] isosorbide 2021-0 Yes [id number] 60mg Take 1 [facility] mononitrate 5-05 tablet by ity of 60 mg 24 hr 00:00: mouth [place] tablet 00 daily. [facility] isosorbide 2-0 Yes [id number] 60mg Take 1 [facility] mononitrate 5-05 tablet by ity of 60 mg 24 hr 00:00: mouth [place] tablet 00 daily. [facility] isosorbide Yes [id number] 60mg Take 1 [facility] mononitrate 5-05 tablet by ity of 60 mg 24 hr 00:00: mouth [place] tablet 00 daily. [facility] isosorbide 3- No [id number] 60mg Take 1 [facility] mononitrate 5-05 07-19 tablet by it y of 60 mg 24 hr 00:00: 00:00 [facility] [place] 00 :00 daily. [facility] isosorbide 2022- No [id number] 60mg Take 1 [facility] mononitrate 5-05 07-19 tablet by it y of 60 mg 24 hr 00:00: 00:[place] 00 :00 daily. [facility] isosorbide 2022- No [id number] 60mg Take 1 [facility] mononitrate 5-05 07-19 tablet by it y of 60 mg 24 hr 00:00: 00:00 [place] 00 :00 daily. [facility] isosorbide 2022- No [id number] 60mg Take 1 [facility] mononitrate 5-05 07-19 tablet by it y of 60 mg 24 hr 00:00: 00:00 [place] 00 :00 daily. [facility] budesonide- Yes [id number] 2{puff} Inhale 2 [facility] formoteroL 4-26 Puffs 2 ity of (SYMBICORT) 00:00: (two) [place] 160-4.5 00 times Medical mcg/actuati daily. Branch on inhaler fluticasone Yes [id number] 1{spray Use 1 [facility] propionate 4-26 } [place] in ity o f 50 00:00: each [place] mcg/actuati 00 nostril 2 Med ical on nasal (two) Branch spray times daily. EPINEPHrine Yes ADMINISTER [facility] 0.3 mg/0.3 4-26 0.3 ML IN ity of mL 00:00: THE MUSCLE [place] injection 00 1 TIME NOW Medi lula FOR 1 DOSE Branch budesonide- Yes [id number] 2{puff} Inhale 2 [facility] formoteroL 4-26 Puffs 2 ity of (SYMBICORT) 00:00: (two) [place] 160-4.5 00 times Medical mcg/actuati daily. Branch on inhaler fluticasone Yes [id number] 1{spray Use 1 [facility] propionate 4-26 } [place] in ity o f 50 00:00: each [place] mcg/actuati 00 nostril 2 Med ical on nasal (two) Branch spray times daily. EPINEPHrine Yes ADMINISTER [facility] 0.3 mg/0.3 4-26 0.3 ML IN ity of mL 00:00: THE MUSCLE [place] injection 00 1 TIME NOW Medi lula FOR 1 DOSE Branch budesonide- 0 Yes [id number] 2{puff} Inhale 2 [facility] formoteroL 4-26 Puffs 2 ity of (SYMBICORT) 00:00: (two) [place] 160-4.5 00 times Medical mcg/actuati daily. Branch on inhaler fluticasone 0 Yes [id number] 1{spray Use 1 [facility] propionate 4-26 } [place] in ity o f 50 00:00: each [place] mcg/actuati 00 nostril 2 Med ical on nasal (two) Branch spray times daily. EPINEPHrine 2021-0 Yes ADMINISTER [facility] 0.3 mg/0.3 4-26 0.3 ML IN ity of mL 00:00: THE MUSCLE [place] injection 00 1 TIME NOW Medi lula FOR 1 DOSE Branch budesonide- 0 Yes [id number] 2{puff} Inhale 2 [facility] formoteroL 4-26 Puffs 2 ity of (SYMBICORT) 00:00: (two) [place] 160-4.5 00 times Medical mcg/actuati daily. Branch on inhaler fluticasone 2021-0 Yes [id number] 1{spray Use 1 [facility] propionate 4-26 } [place] in ity o f 50 00:00: each [place] mcg/actuati 00 nostril 2 Med ical on nasal (two) Branch spray times daily. EPINEPHrine 2021-0 Yes ADMINISTER [facility] 0.3 mg/0.3 4-26 0.3 ML IN ity of mL 00:00: THE MUSCLE [place] injection 00 1 TIME NOW Medi lula FOR 1 DOSE Branch budesonide- 2021-0 Yes [id number] 2{puff} Inhale 2 [facility] formoteroL 4-26 Puffs 2 ity of (SYMBICORT) 00:00: (two) [place] 160-4.5 00 times Medical mcg/actuati daily. Branch on inhaler fluticasone 0 Yes [id number] 1{spray Use 1 [facility] propionate 4-26 } [place] in ity o f 50 00:00: each [place] mcg/actuati 00 nostril 2 Med ical on nasal (two) Branch spray times daily. EPINEPHrine Yes ADMINISTER [facility] 0.3 mg/0.3 4-26 0.3 ML IN ity of mL 00:00: THE MUSCLE [place] injection 00 1 TIME NOW Medi lula FOR 1 DOSE Branch budesonide- 0 Yes [id number] 2{puff} Inhale 2 [facility] formoteroL 4-26 Puffs 2 ity of (SYMBICORT) 00:00: (two) [place] 160-4.5 00 times Medical mcg/actuati daily. Branch on inhaler fluticasone Yes [id number] 1{spray Use 1 [facility] propionate 4-26 } [place] in ity o f 50 00:00: each [place] mcg/actuati 00 nostril 2 Med ical on nasal (two) Branch spray times daily. EPINEPHrine 2021-0 Yes ADMINISTER [facility] 0.3 mg/0.3 4-26 0.3 ML IN ity of mL 00:00: THE MUSCLE [place] injection 00 1 TIME NOW Medi lula FOR 1 DOSE [facility] budesonide- 0 Yes [id number] 2{puff} Inhale 2 [facility] formoteroL 4-26 Puffs 2 ity of (SYMBICORT) 00:00: (two) [place] 160-4.5 00 times Medical mcg/actuati daily. Branch on inhaler fluticasone 0 Yes [id number] 1{spray Use 1 [facility] propionate 4-26 } [place] in ity o f 50 00:00: each [place] mcg/actuati 00 nostril 2 Med ical on nasal (two) Branch spray times daily. EPINEPHrine 2021-0 Yes ADMINISTER [facility] 0.3 mg/0.3 4-26 0.3 ML IN ity of mL 00:00: THE MUSCLE [place] injection 00 1 TIME NOW Medi lula FOR 1 DOSE Branch budesonide- Yes [id number] 2{puff} Inhale 2 [facility] formoteroL 4-26 Puffs 2 ity of (SYMBICORT) 00:00: (two) [place] 160-4.5 00 times Medical mcg/actuati daily. Branch on inhaler fluticasone Yes [id number] 1{spray Use 1 [facility] propionate 4-26 } [place] in ity o f 50 00:00: each [place] mcg/actuati 00 nostril 2 Med ical on nasal (two) Branch spray times daily. EPINEPHrine Yes ADMINISTER [facility] 0.3 mg/0.3 4-26 0.3 ML IN ity of mL 00:00: THE MUSCLE [place] injection 00 1 TIME NOW Medi lula FOR 1 DOSE Branch budesonide- Yes [id number] 2{puff} Inhale 2 [facility] formoteroL 4-26 Puffs 2 ity of (SYMBICORT) 00:00: (two) [place] 160-4.5 00 times Medical mcg/actuati daily. Branch on inhaler fluticasone Yes [id number] 1{spray Use 1 [facility] propionate 4-26 } [place] in ity o f 50 00:00: each [place] mcg/actuati 00 nostril 2 Med ical on nasal (two) Branch spray times daily. EPINEPHrine Yes ADMINISTER [facility] 0.3 mg/0.3 4-26 0.3 ML IN ity of mL 00:00: THE MUSCLE [place] injection 00 1 TIME NOW Medi lula FOR 1 DOSE Branch budesonide- 2021-0 Yes [id number] 2{puff} Inhale 2 [facility] formoteroL 4-26 Puffs 2 ity of (SYMBICORT) 00:00: (two) [place] 160-4.5 00 times Medical mcg/actuati daily. Branch on inhaler fluticasone 0 Yes [id number] 1{spray Use 1 [facility] propionate 4-26 } [place] in ity o f 50 00:00: each [place] mcg/actuati 00 nostril 2 Med ical on nasal (two) Branch spray times daily. EPINEPHrine Yes ADMINISTER [facility] 0.3 mg/0.3 4-26 0.3 ML IN ity of mL 00:00: THE MUSCLE [place] injection 00 1 TIME NOW Medi lula FOR 1 DOSE Branch budesonide- 0 Yes [id number] 2{puff} Inhale 2 [facility] formoteroL 4-26 Puffs 2 ity of (SYMBICORT) 00:00: (two) [place] 160-4.5 00 times Medical mcg/actuati daily. Branch on inhaler fluticasone 0 Yes [id number] 1{spray Use 1 [facility] propionate 4-26 } [place] in ity o f 50 00:00: each [place] mcg/actuati 00 nostril 2 Med ical on nasal (two) Branch spray times daily. EPINEPHrine Yes ADMINISTER [facility] 0.3 mg/0.3 4-26 0.3 ML IN ity of mL 00:00: THE MUSCLE [place] injection 00 1 TIME NOW Medi lula FOR 1 DOSE Branch budesonide- Yes [id number] 2{puff} Inhale 2 [facility] formoteroL 4-26 Puffs 2 ity of (SYMBICORT) 00:00: (two) [place] 160-4.5 00 times Medical mcg/actuati daily. Branch on inhaler fluticasone Yes [id number] 1{spray Use 1 [facility] propionate 4-26 } [place] in ity o f 50 00:00: each [place] mcg/actuati 00 nostril 2 Med ical on nasal (two) Branch spray times daily. EPINEPHrine Yes ADMINISTER [facility] 0.3 mg/0.3 4-26 0.3 ML IN ity of mL 00:00: THE MUSCLE [place] injection 00 1 TIME NOW Medi lula FOR 1 DOSE Branch budesonide- 0 Yes [id number] 2{puff} Inhale 2 [facility] formoteroL 4-26 Puffs 2 ity of (SYMBICORT) 00:00: (two) [place] 160-4.5 00 times Medical mcg/actuati daily. Branch on inhaler fluticasone 0 Yes [id number] 1{spray Use 1 [facility] propionate 4-26 } [place] in ity o f 50 00:00: each [place] mcg/actuati 00 nostril 2 Med ical on nasal (two) Branch spray times daily. EPINEPHrine Yes ADMINISTER [facility] 0.3 mg/0.3 4-26 0.3 ML IN ity of mL 00:00: THE MUSCLE [place] injection 00 1 TIME NOW Medi lula FOR 1 DOSE Branch budesonide- 2021-0 Yes [id number] 2{puff} Inhale 2 [facility] formoteroL 4-26 Puffs 2 ity of (SYMBICORT) 00:00: (two) [place] 160-4.5 00 times Medical mcg/actuati daily. Branch on inhaler fluticasone 2021-0 Yes [id number] 1{spray Use 1 [facility] propionate 4-26 } [place] in ity o f 50 00:00: each [place] mcg/actuati 00 nostril 2 Med ical on nasal (two) Branch spray times daily. EPINEPHrine Yes ADMINISTER [facility] 0.3 mg/0.3 4-26 0.3 ML IN ity of mL 00:00: THE MUSCLE [place] injection 00 1 TIME NOW Medi lula FOR 1 DOSE Branch budesonide- 0 Yes [id number] 2{puff} Inhale 2 [facility] formoteroL 4-26 Puffs 2 ity of (SYMBICORT) 00:00: (two) [place] 160-4.5 00 times Medical mcg/actuati daily. Branch on inhaler fluticasone 0 Yes [id number] 1{spray Use 1 [facility] propionate 4-26 } [place] in ity o f 50 00:00: each [place] mcg/actuati 00 nostril 2 Med ical on nasal (two) Branch spray times daily. EPINEPHrine 2021- Yes ADMINISTER [facility] 0.3 mg/0.3 4-26 0.3 ML IN ity of mL 00:00: THE MUSCLE [place] injection 00 1 TIME NOW Medi lula FOR 1 DOSE Branch budesonide- 2021-0 Yes [id number] 2{puff} Inhale 2 [facility] formoteroL 4-26 Puffs 2 ity of (SYMBICORT) 00:00: (two) [place] 160-4.5 00 times Medical mcg/actuati daily. Branch on inhaler fluticasone 2021-0 Yes [id number] 1{spray Use 1 [facility] propionate 4-26 } [place] in ity o f 50 00:00: each [place] mcg/actuati 00 nostril 2 Med ical on nasal (two) Branch spray times daily. EPINEPHrine 2021-0 Yes ADMINISTER [facility] 0.3 mg/0.3 4-26 0.3 ML IN ity of mL 00:00: THE MUSCLE [place] injection 00 1 TIME NOW Medi lula FOR 1 DOSE Branch budesonide- 2021-0 Yes [id number] 2{puff} Inhale 2 [facility] formoteroL 4-26 Puffs 2 ity of (SYMBICORT) 00:00: (two) [place] 160-4.5 00 times Medical mcg/actuati daily. Branch on inhaler fluticasone 2021-0 Yes [id number] 1{spray Use 1 [facility] propionate 4-26 } [place] in ity o f 50 00:00: each [place] mcg/actuati 00 nostril 2 Med ical on nasal (two) Branch spray times daily. EPINEPHrine 2021- Yes ADMINISTER [facility] 0.3 mg/0.3 4-26 0.3 ML IN ity of mL 00:00: THE MUSCLE [place] injection 00 1 TIME NOW Medi lula FOR 1 DOSE Branch budesonide- 2021-0 Yes [id number] 2{puff} Inhale 2 [facility] formoteroL 4-26 Puffs 2 ity of (SYMBICORT) 00:00: (two) [place] 160-4.5 00 times Medical mcg/actuati daily. Branch on inhaler fluticasone 2021-0 Yes [id number] 1{spray Use 1 [facility] propionate 4-26 } [place] in ity o f 50 00:00: each [place] mcg/actuati 00 nostril 2 Med ical on nasal (two) Branch spray times daily. EPINEPHrine 2021-0 Yes ADMINISTER [facility] 0.3 mg/0.3 4-26 0.3 ML IN ity of mL 00:00: THE MUSCLE [place] injection 00 1 TIME NOW Medi lula FOR 1 DOSE Branch budesonide- 2021-0 Yes [id number] 2{puff} Inhale 2 [facility] formoteroL 4-26 Puffs 2 ity of (SYMBICORT) 00:00: (two) [place] 160-4.5 00 times Medical mcg/actuati daily. Branch on inhaler fluticasone 2021-0 Yes [id number] 1{spray Use 1 [facility] propionate 4-26 } [place] in ity o f 50 00:00: each [place] mcg/actuati 00 nostril 2 Med ical on nasal (two) Branch spray times daily. EPINEPHrine 2021-0 Yes ADMINISTER [facility] 0.3 mg/0.3 4-26 0.3 ML IN ity of mL 00:00: THE MUSCLE [place] injection 00 1 TIME NOW Medi lula FOR 1 DOSE Branch budesonide- 2021-0 Yes [id number] 2{puff} Inhale 2 [facility] formoteroL 4-26 Puffs 2 ity of (SYMBICORT) 00:00: (two) [place] 160-4.5 00 times Medical mcg/actuati daily. Branch on inhaler fluticasone 2021-0 Yes [id number] 1{spray Use 1 [facility] propionate 4-26 } [place] in ity o f 50 00:00: each [place] mcg/actuati 00 nostril 2 Med ical on nasal (two) Branch spray times daily. EPINEPHrine 2021- Yes ADMINISTER [facility] 0.3 mg/0.3 4-26 0.3 ML IN ity of mL 00:00: THE MUSCLE [place] injection 00 1 TIME NOW Medi lula FOR 1 DOSE Branch budesonide- Yes [id number] 2{puff} Inhale 2 [facility] formoteroL 4-26 Puffs 2 ity of (SYMBICORT) 00:00: (two) [place] 160-4.5 00 times Medical mcg/actuati daily. Branch on inhaler fluticasone 2021-0 Yes [id number] 1{spray Use 1 [facility] propionate 4-26 } [place] in ity o f 50 00:00: each [place] mcg/actuati 00 nostril 2 Med ical on nasal (two) Branch spray times daily. EPINEPHrine 2021-0 Yes ADMINISTER [facility] 0.3 mg/0.3 4-26 0.3 ML IN ity of mL 00:00: THE MUSCLE [place] injection 00 1 TIME NOW Medi lula FOR 1 DOSE Branch budesonide- 2021-0 Yes [id number] 2{puff} Inhale 2 [facility] formoteroL 4-26 Puffs 2 ity of (SYMBICORT) 00:00: (two) [place] 160-4.5 00 times Medical mcg/actuati daily. Branch on inhaler fluticasone 2021-0 Yes [id number] 1{spray Use 1 [facility] propionate 4-26 } [place] in ity o f 50 00:00: each [place] mcg/actuati 00 nostril 2 Med ical on nasal (two) Branch spray times daily. EPINEPHrine 2022-0 Yes ADMINISTER [facility] 0.3 mg/0.3 4-26 0.3 ML IN ity of mL 00:00: THE MUSCLE [place] injection 00 1 TIME NOW Medi lula FOR 1 DOSE Branch budesonide- 0 Yes [id number] 2{puff} Inhale 2 [facility] formoteroL 4-26 Puffs 2 ity of (SYMBICORT) 00:00: (two) [place] 160-4.5 00 times Medical mcg/actuati daily. Branch on inhaler fluticasone Yes [id number] 1{spray Use 1 [facility] propionate 4-26 } [place] in ity o f 50 00:00: each [place] mcg/actuati 00 nostril 2 Med ical on nasal (two) Branch spray times daily. EPINEPHrine Yes ADMINISTER [facility] 0.3 mg/0.3 4-26 0.3 ML IN ity of mL 00:00: THE MUSCLE [place] injection 00 1 TIME NOW Medi lula FOR 1 DOSE Branch budesonide- Yes [id number] 2{puff} Inhale 2 [facility] formoteroL 4-26 Puffs 2 ity of (SYMBICORT) 00:00: (two) [place] 160-4.5 00 times Medical mcg/actuati daily. Branch on inhaler fluticasone Yes [id number] 1{spray Use 1 [facility] propionate 4-26 } [place] in ity o f 50 00:00: each [place] mcg/actuati 00 nostril 2 Med ical on nasal (two) Branch spray times daily. EPINEPHrine Yes ADMINISTER [facility] 0.3 mg/0.3 4-26 0.3 ML IN ity of mL 00:00: THE MUSCLE [place] injection 00 1 TIME NOW Medi lula FOR 1 DOSE Branch budesonide- 0 Yes [id number] 2{puff} Inhale 2 [facility] formoteroL 4-26 Puffs 2 ity of (SYMBICORT) 00:00: (two) [place] 160-4.5 00 times Medical mcg/actuati daily. Branch on inhaler fluticasone 0 Yes [id number] 1{spray Use 1 [facility] propionate 4-26 } [place] in ity o f 50 00:00: each [place] mcg/actuati 00 nostril 2 Med ical on nasal (two) Branch spray times daily. EPINEPHrine Yes ADMINISTER [facility] 0.3 mg/0.3 4-26 0.3 ML IN ity of mL 00:00: THE MUSCLE [place] injection 00 1 TIME NOW Medi lula FOR 1 DOSE Branch budesonide- 0 Yes [id number] 2{puff} Inhale 2 [facility] formoteroL 4-26 Puffs 2 ity of (SYMBICORT) 00:00: (two) [place] 160-4.5 00 times Medical mcg/actuati daily. Branch on inhaler fluticasone Yes [id number] 1{spray Use 1 [facility] propionate 4-26 } [place] in ity o f 50 00:00: each [place] mcg/actuati 00 nostril 2 Med ical on nasal (two) Branch spray times daily. EPINEPHrine Yes ADMINISTER [facility] 0.3 mg/0.3 4-26 0.3 ML IN ity of mL 00:00: THE MUSCLE [place] injection 00 1 TIME NOW Medi lula FOR 1 DOSE Branch budesonide- Yes [id number] 2{puff} Inhale 2 [facility] formoteroL 4-26 Puffs 2 ity of (SYMBICORT) 00:00: (two) [place] 160-4.5 00 times Medical mcg/actuati daily. Branch on inhaler fluticasone Yes [id number] 1{spray Use 1 [facility] propionate 4-26 } [place] in ity o f 50 00:00: each [place] mcg/actuati 00 nostril 2 Med ical on nasal (two) Branch spray times daily. EPINEPHrine Yes ADMINISTER [facility] 0.3 mg/0.3 4-26 0.3 ML IN ity of mL 00:00: THE MUSCLE [place] injection 00 1 TIME NOW Medi lula FOR 1 DOSE Branch budesonide- 2021-0 Yes [id number] 2{puff} Inhale 2 [facility] formoteroL 4-26 Puffs 2 ity of (SYMBICORT) 00:00: (two) [place] 160-4.5 00 times Medical mcg/actuati daily. Branch on inhaler fluticasone 2021-0 Yes [id number] 1{spray Use 1 [facility] propionate 4-26 } [place] in ity o f 50 00:00: each [place] mcg/actuati 00 nostril 2 Med ical on nasal (two) Branch spray times daily. EPINEPHrine 0 Yes ADMINISTER [facility] 0.3 mg/0.3 4-26 0.3 ML IN ity of mL 00:00: THE MUSCLE [place] injection 00 1 TIME NOW Medi lula FOR 1 DOSE Branch budesonide- 2021-0 Yes [id number] 2{puff} Inhale 2 [facility] formoteroL 4-26 Puffs 2 ity of (SYMBICORT) 00:00: (two) [place] 160-4.5 00 times Medical mcg/actuati daily. Branch on inhaler fluticasone 2021-0 Yes [id number] 1{spray Use 1 [facility] propionate 4-26 } [place] in ity o f 50 00:00: each [place] mcg/actuati 00 nostril 2 Med ical on nasal (two) Branch spray times daily. EPINEPHrine 2021-0 Yes ADMINISTER [facility] 0.3 mg/0.3 4-26 0.3 ML IN ity of mL 00:00: THE MUSCLE [place] injection 00 1 TIME NOW Medi lula FOR 1 DOSE Branch budesonide- 2021-0 Yes [id number] 2{puff} Inhale 2 [facility] formoteroL 4-26 Puffs 2 ity of (SYMBICORT) 00:00: (two) [place] 160-4.5 00 times Medical mcg/actuati daily. Branch on inhaler fluticasone 2021-0 Yes [id number] 1{spray Use 1 [facility] propionate 4-26 } [place] in ity o f 50 00:00: each [place] mcg/actuati 00 nostril 2 Med ical on nasal (two) Branch spray times daily. EPINEPHrine 2021-0 Yes ADMINISTER [facility] 0.3 mg/0.3 4-26 0.3 ML IN ity of mL 00:00: THE MUSCLE [place] injection 00 1 TIME NOW Medi lula FOR 1 DOSE Branch budesonide- 2021-0 Yes [id number] 2{puff} Inhale 2 [facility] formoteroL 4-26 Puffs 2 ity of (SYMBICORT) 00:00: (two) [place] 160-4.5 00 times Medical mcg/actuati daily. Branch on inhaler fluticasone 2021-0 Yes [id number] 1{spray Use 1 [facility] propionate 4-26 } [place] in ity o f 50 00:00: each [place] mcg/actuati 00 nostril 2 Med ical on nasal (two) Branch spray times daily. EPINEPHrine 2021-0 Yes ADMINISTER [facility] 0.3 mg/0.3 4-26 0.3 ML IN ity of mL 00:00: THE MUSCLE [place] injection 00 1 TIME NOW Medi lula FOR 1 DOSE Branch budesonide- 2021-0 Yes [id number] 2{puff} Inhale 2 [facility] formoteroL 4-26 Puffs 2 ity of (SYMBICORT) 00:00: (two) [place] 160-4.5 00 times Medical mcg/actuati daily. Branch on inhaler fluticasone 2021-0 Yes [id number] 1{spray Use 1 [facility] propionate 4-26 } [place] in ity o f 50 00:00: each [place] mcg/actuati 00 nostril 2 Med ical on nasal (two) Branch spray times daily. EPINEPHrine 2021-0 Yes ADMINISTER [facility] 0.3 mg/0.3 4-26 0.3 ML IN ity of mL 00:00: THE MUSCLE [place] injection 00 1 TIME NOW Medi lula FOR 1 DOSE Branch budesonide- 2021-0 Yes [id number] 2{puff} Inhale 2 [facility] formoteroL 4-26 Puffs 2 ity of (SYMBICORT) 00:00: (two) [place] 160-4.5 00 times Medical mcg/actuati daily. Branch on inhaler fluticasone 2021-0 Yes [id number] 1{spray Use 1 [facility] propionate 4-26 } [place] in ity o f 50 00:00: each [place] mcg/actuati 00 nostril 2 Med ical on nasal (two) Branch spray times daily. EPINEPHrine 2021-0 Yes ADMINISTER [facility] 0.3 mg/0.3 4-26 0.3 ML IN ity of mL 00:00: THE MUSCLE [place] injection 00 1 TIME NOW Medi lula FOR 1 DOSE Branch budesonide- 2021-0 Yes [id number] 2{puff} Inhale 2 [facility] formoteroL 4-26 Puffs 2 ity of (SYMBICORT) 00:00: (two) [place] 160-4.5 00 times Medical mcg/actuati daily. Branch on inhaler fluticasone 2021-0 Yes [id number] 1{spray Use 1 [facility] propionate 4-26 } [place] in ity o f 50 00:00: each [place] mcg/actuati 00 nostril 2 Med ical on nasal (two) Branch spray times daily. EPINEPHrine 2021-0 Yes ADMINISTER [facility] 0.3 mg/0.3 4-26 0.3 ML IN ity of mL 00:00: THE MUSCLE [place] injection 00 1 TIME NOW Medi lula FOR 1 DOSE Branch budesonide- 2021-0 Yes [id number] 2{puff} Inhale 2 [facility] formoteroL 4-26 Puffs 2 ity of (SYMBICORT) 00:00: (two) [place] 160-4.5 00 times Medical mcg/actuati daily. Branch on inhaler fluticasone 2021-0 Yes [id number] 1{spray Use 1 [facility] propionate 4-26 } [place] in ity o f 50 00:00: each [place] mcg/actuati 00 nostril 2 Med ical on nasal (two) Branch spray times daily. EPINEPHrine 2021-0 Yes ADMINISTER [facility] 0.3 mg/0.3 4-26 0.3 ML IN ity of mL 00:00: THE MUSCLE [place] injection 00 1 TIME NOW Medi lula FOR 1 DOSE Branch budesonide- 2021-0 Yes [id number] 2{puff} Inhale 2 [facility] formoteroL 4-26 Puffs 2 ity of (SYMBICORT) 00:00: (two) [place] 160-4.5 00 times Medical mcg/actuati daily. Branch on inhaler fluticasone 2021-0 Yes [id number] 1{spray Use 1 [facility] propionate 4-26 } [place] in ity o f 50 00:00: each [place] mcg/actuati 00 nostril 2 Med ical on nasal (two) Branch spray times daily. EPINEPHrine 2021-0 Yes ADMINISTER [facility] 0.3 mg/0.3 4-26 0.3 ML IN ity of mL 00:00: THE MUSCLE [place] injection 00 1 TIME NOW Medi lula FOR 1 DOSE Branch budesonide- 2021-0 Yes [id number] 2{puff} Inhale 2 [facility] formoteroL 4-26 Puffs 2 ity of (SYMBICORT) 00:00: (two) [place] 160-4.5 00 times Medical mcg/actuati daily. Branch on inhaler fluticasone 2021-0 Yes [id number] 1{spray Use 1 [facility] propionate 4-26 } [place] in ity o f 50 00:00: each [place] mcg/actuati 00 nostril 2 Med ical on nasal (two) Branch spray times daily. EPINEPHrine 2021-0 Yes ADMINISTER [facility] 0.3 mg/0.3 4-26 0.3 ML IN ity of mL 00:00: THE MUSCLE [place] injection 00 1 TIME NOW Medi lula FOR 1 DOSE Branch budesonide- 2021-0 Yes [id number] 2{puff} Inhale 2 [facility] formoteroL 4-26 Puffs 2 ity of (SYMBICORT) 00:00: (two) [place] 160-4.5 00 times Medical mcg/actuati daily. Branch on inhaler fluticasone 0 Yes [id number] 1{spray Use 1 [facility] propionate 4-26 } [place] in ity o f 50 00:00: each [place] mcg/actuati 00 nostril 2 Med ical on nasal (two) Branch spray times daily. EPINEPHrine 2021-0 Yes ADMINISTER [facility] 0.3 mg/0.3 4-26 0.3 ML IN ity of mL 00:00: THE MUSCLE [place] injection 00 1 TIME NOW Medi lula FOR 1 DOSE Branch budesonide- 0 Yes [id number] 2{puff} Inhale 2 [facility] formoteroL 4-26 Puffs 2 ity of (SYMBICORT) 00:00: (two) [place] 160-4.5 00 times Medical mcg/actuati daily. Branch on inhaler fluticasone 0 Yes [id number] 1{spray Use 1 [facility] propionate 4-26 } [place] in ity o f 50 00:00: each [place] mcg/actuati 00 nostril 2 Med ical on nasal (two) Branch spray times daily. EPINEPHrine 2021-0 Yes ADMINISTER [facility] 0.3 mg/0.3 4-26 0.3 ML IN ity of mL 00:00: THE MUSCLE [place] injection 00 1 TIME NOW Medi lula FOR 1 DOSE Branch budesonide- 2021-0 Yes [id number] 2{puff} Inhale 2 [facility] formoteroL 4-26 Puffs 2 ity of (SYMBICORT) 00:00: (two) [place] 160-4.5 00 times Medical mcg/actuati daily. Branch on inhaler fluticasone Yes [id number] 1{spray Use 1 [facility] propionate 4-26 } [place] in ity o f 50 00:00: each [place] mcg/actuati 00 nostril 2 Med ical on nasal (two) Branch spray times daily. EPINEPHrine 2021-0 Yes ADMINISTER [facility] 0.3 mg/0.3 4-26 0.3 ML IN ity of mL 00:00: THE MUSCLE [place] injection 00 1 TIME NOW Medi lula FOR 1 DOSE Branch budesonide- 0 Yes [id number] 2{puff} Inhale 2 [facility] formoteroL 4-26 Puffs 2 ity of (SYMBICORT) 00:00: (two) [place] 160-4.5 00 times Medical mcg/actuati daily. Branch on inhaler fluticasone Yes [id number] 1{spray Use 1 [facility] propionate 4-26 } [place] in ity o f 50 00:00: each [place] mcg/actuati 00 nostril 2 Med ical on nasal (two) Branch spray times daily. EPINEPHrine 0 Yes ADMINISTER [facility] 0.3 mg/0.3 4-26 0.3 ML IN ity of mL 00:00: THE MUSCLE [place] injection 00 1 TIME NOW Medi lula FOR 1 DOSE Branch budesonide- 0 Yes [id number] 2{puff} Inhale 2 [facility] formoteroL 4-26 Puffs 2 ity of (SYMBICORT) 00:00: (two) [place] 160-4.5 00 times Medical mcg/actuati daily. Branch on inhaler fluticasone 0 Yes [id number] 1{spray Use 1 [facility] propionate 4-26 } [place] in ity o f 50 00:00: each [place] mcg/actuati 00 nostril 2 Med ical on nasal (two) Branch spray times daily. EPINEPHrine 2021-0 Yes ADMINISTER [facility] 0.3 mg/0.3 4-26 0.3 ML IN ity of mL 00:00: THE MUSCLE [place] injection 00 1 TIME NOW Medi lula FOR 1 DOSE Branch budesonide- 0 Yes [id number] 2{puff} Inhale 2 [facility] formoteroL 4-26 Puffs 2 ity of (SYMBICORT) 00:00: (two) [place] 160-4.5 00 times Medical mcg/actuati daily. Branch on inhaler fluticasone Yes [id number] 1{spray Use 1 [facility] propionate 4-26 } [place] in ity o f 50 00:00: each [place] mcg/actuati 00 nostril 2 Med ical on nasal (two) Branch spray times daily. EPINEPHrine 2021- Yes ADMINISTER [facility] 0.3 mg/0.3 4-26 0.3 ML IN ity of mL 00:00: THE MUSCLE [place] injection 00 1 TIME NOW Medi lula FOR 1 DOSE Branch budesonide- 0 Yes [id number] 2{puff} Inhale 2 [facility] formoteroL 4-26 Puffs 2 ity of (SYMBICORT) 00:00: (two) [place] 160-4.5 00 times Medical mcg/actuati daily. Branch on inhaler fluticasone Yes [id number] 1{spray Use 1 [facility] propionate 4-26 } [place] in ity o f 50 00:00: each [place] mcg/actuati 00 nostril 2 Med ical on nasal (two) Branch spray times daily. EPINEPHrine Yes ADMINISTER [facility] 0.3 mg/0.3 4-26 0.3 ML IN ity of mL 00:00: THE MUSCLE [place] injection 00 1 TIME NOW Medi lula FOR 1 DOSE Branch budesonide- Yes [id number] 2{puff} Inhale 2 [facility] formoteroL 4-26 Puffs 2 ity of (SYMBICORT) 00:00: (two) [place] 160-4.5 00 times Medical mcg/actuati daily. Branch on inhaler fluticasone Yes [id number] 1{spray Use 1 [facility] propionate 4-26 } [place] in ity o f 50 00:00: each [place] mcg/actuati 00 nostril 2 Med ical on nasal (two) Branch spray times daily. EPINEPHrine 2021-0 Yes ADMINISTER [facility] 0.3 mg/0.3 4-26 0.3 ML IN ity of mL 00:00: THE MUSCLE [place] injection 00 1 TIME NOW Medi lula FOR 1 DOSE Branch budesonide- 0 Yes [id number] 2{puff} Inhale 2 [facility] formoteroL 4-26 Puffs 2 ity of (SYMBICORT) 00:00: (two) [place] 160-4.5 00 times Medical mcg/actuati daily. Branch on inhaler EPINEPHrine 2021-0 Yes ADMINISTER [facility] 0.3 mg/0.3 4-26 0.3 ML IN ity of mL 00:00: THE MUSCLE [place] injection 00 1 TIME NOW Medi lula FOR 1 DOSE Branch budesonide- 2021-0 Yes [id number] 2{puff} Inhale 2 [facility] formoteroL 4-26 Puffs 2 ity of (SYMBICORT) 00:00: (two) [place] 160-4.5 00 times Medical mcg/actuati daily. Branch on inhaler EPINEPHrine 2021-0 Yes ADMINISTER [facility] 0.3 mg/0.3 4-26 0.3 ML IN ity of mL 00:00: THE MUSCLE [place] injection 00 1 TIME NOW Medi lula FOR 1 DOSE Branch budesonide- 2021-0 Yes [id number] 2{puff} Inhale 2 [facility] formoteroL 4-26 Puffs 2 ity of (SYMBICORT) 00:00: (two) [place] 160-4.5 00 times Medical mcg/actuati daily. Branch on inhaler EPINEPHrine 2021-0 Yes ADMINISTER [facility] 0.3 mg/0.3 4-26 0.3 ML IN ity of mL 00:00: THE MUSCLE [place] injection 00 1 TIME NOW Medi lula FOR 1 DOSE Branch budesonide- 2021-0 Yes [id number] 2{puff} Inhale 2 [facility] formoteroL 4-26 Puffs 2 ity of (SYMBICORT) 00:00: (two) [place] 160-4.5 00 times Medical mcg/actuati daily. Branch on inhaler EPINEPHrine 2021-0 Yes ADMINISTER [facility] 0.3 mg/0.3 4-26 0.3 ML IN ity of mL 00:00: THE MUSCLE [place] injection 00 1 TIME NOW Medi lula FOR 1 DOSE Branch budesonide- 2021-0 Yes [id number] 2{puff} Inhale 2 [facility] formoteroL 4-26 Puffs 2 ity of (SYMBICORT) 00:00: (two) [place] 160-4.5 00 times Medical mcg/actuati daily. Branch on inhaler EPINEPHrine 2021-0 Yes ADMINISTER [facility] 0.3 mg/0.3 4-26 0.3 ML IN ity of mL 00:00: THE MUSCLE [place] injection 00 1 TIME NOW Medi lula FOR 1 DOSE Branch budesonide- 2021-0 Yes [id number] 2{puff} Inhale 2 [facility] formoteroL 4-26 Puffs 2 ity of (SYMBICORT) 00:00: (two) [place] 160-4.5 00 times Medical mcg/actuati daily. Branch on inhaler EPINEPHrine 2021-0 Yes ADMINISTER [facility] 0.3 mg/0.3 4-26 0.3 ML IN ity of mL 00:00: THE MUSCLE [place] injection 00 1 TIME NOW Medi lula FOR 1 DOSE Branch budesonide- 2021-0 Yes [id number] 2{puff} Inhale 2 [facility] formoteroL 4-26 Puffs 2 ity of (SYMBICORT) 00:00: (two) [place] 160-4.5 00 times Medical mcg/actuati daily. Branch on inhaler EPINEPHrine Yes ADMINISTER [facility] 0.3 mg/0.3 4-26 0.3 ML IN ity of mL 00:00: THE MUSCLE [place] injection 00 1 TIME NOW Medi lula FOR 1 DOSE Branch budesonide- 2021-0 Yes [id number] 2{puff} Inhale 2 [facility] formoteroL 4-26 Puffs 2 ity of (SYMBICORT) 00:00: (two) [place] 160-4.5 00 times Medical mcg/actuati daily. Branch on inhaler EPINEPHrine Yes ADMINISTER [facility] 0.3 mg/0.3 4-26 0.3 ML IN ity of mL 00:00: THE MUSCLE [place] injection 00 1 TIME NOW Medi lula FOR 1 DOSE Branch budesonide- 2021-0 Yes [id number] 2{puff} Inhale 2 [facility] formoteroL 4-26 Puffs 2 ity of (SYMBICORT) 00:00: (two) [place] 160-4.5 00 times Medical mcg/actuati daily. Branch on inhaler EPINEPHrine 2021-0 Yes ADMINISTER [facility] 0.3 mg/0.3 4-26 0.3 ML IN ity of mL 00:00: THE MUSCLE [place] injection 00 1 TIME NOW Medi lula FOR 1 DOSE Branch budesonide- 2021-0 Yes [id number] 2{puff} Inhale 2 [facility] formoteroL 4-26 Puffs 2 ity of (SYMBICORT) 00:00: (two) [place] 160-4.5 00 times Medical mcg/actuati daily. Branch on inhaler EPINEPHrine 2021-0 Yes ADMINISTER [facility] 0.3 mg/0.3 4-26 0.3 ML IN ity of mL 00:00: THE MUSCLE [place] injection 00 1 TIME NOW Medi lula FOR 1 DOSE Branch budesonide- 2021-0 Yes [id number] 2{puff} Inhale 2 [facility] formoteroL 4-26 Puffs 2 ity of (SYMBICORT) 00:00: (two) [place] 160-4.5 00 times Medical mcg/actuati daily. Branch on inhaler EPINEPHrine 2021-0 Yes ADMINISTER [facility] 0.3 mg/0.3 4-26 0.3 ML IN ity of mL 00:00: THE MUSCLE [place] injection 00 1 TIME NOW Medi lula FOR 1 DOSE Branch budesonide- 2021-0 Yes [id number] 2{puff} Inhale 2 [facility] formoteroL 4-26 Puffs 2 ity of (SYMBICORT) 00:00: (two) [place] 160-4.5 00 times Medical mcg/actuati daily. Branch on inhaler EPINEPHrine 2021-0 Yes ADMINISTER [facility] 0.3 mg/0.3 4-26 0.3 ML IN ity of mL 00:00: THE MUSCLE [place] injection 00 1 TIME NOW Medi lula FOR 1 DOSE Branch budesonide- 2021-0 Yes [id number] 2{puff} Inhale 2 [facility] formoteroL 4-26 Puffs 2 ity of (SYMBICORT) 00:00: (two) [place] 160-4.5 00 times Medical mcg/actuati daily. Branch on inhaler EPINEPHrine 2021-0 Yes ADMINISTER [facility] 0.3 mg/0.3 4-26 0.3 ML IN ity of mL 00:00: THE MUSCLE [place] injection 00 1 TIME NOW Medi lula FOR 1 DOSE Branch budesonide- 2021-0 Yes [id number] 2{puff} Inhale 2 [facility] formoteroL 4-26 Puffs 2 ity of (SYMBICORT) 00:00: (two) [place] 160-4.5 00 times Medical mcg/actuati daily. Branch on inhaler EPINEPHrine 2021-0 Yes ADMINISTER [facility] 0.3 mg/0.3 4-26 0.3 ML IN ity of mL 00:00: THE MUSCLE [place] injection 00 1 TIME NOW Medi lula FOR 1 DOSE Branch budesonide- 2021-0 Yes [id number] 2{puff} Inhale 2 [facility] formoteroL 4-26 Puffs 2 ity of (SYMBICORT) 00:00: (two) [place] 160-4.5 00 times Medical mcg/actuati daily. Branch on inhaler EPINEPHrine 2021-0 Yes ADMINISTER [facility] 0.3 mg/0.3 4-26 0.3 ML IN ity of mL 00:00: THE MUSCLE [place] injection 00 1 TIME NOW Medi lula FOR 1 DOSE Branch budesonide- 2021-0 Yes [id number] 2{puff} Inhale 2 [facility] formoteroL 4-26 Puffs 2 ity of (SYMBICORT) 00:00: (two) [place] 160-4.5 00 times Medical mcg/actuati daily. Branch on inhaler EPINEPHrine Yes ADMINISTER [facility] 0.3 mg/0.3 4-26 0.3 ML IN ity of mL 00:00: THE MUSCLE [place] injection 00 1 TIME NOW Medi lula FOR 1 DOSE Branch budesonide- 2021-0 Yes [id number] 2{puff} Inhale 2 [facility] formoteroL 4-26 Puffs 2 ity of (SYMBICORT) 00:00: (two) [place] 160-4.5 00 times Medical mcg/actuati daily. Branch on inhaler EPINEPHrine 0 Yes ADMINISTER [facility] 0.3 mg/0.3 4-26 0.3 ML IN ity of mL 00:00: THE MUSCLE [place] injection 00 1 TIME NOW Medi lula FOR 1 DOSE Branch budesonide- 2021-0 Yes [id number] 2{puff} Inhale 2 [facility] formoteroL 4-26 Puffs 2 ity of (SYMBICORT) 00:00: (two) [place] 160-4.5 00 times Medical mcg/actuati daily. Branch on inhaler EPINEPHrine 2021-0 Yes ADMINISTER [facility] 0.3 mg/0.3 4-26 0.3 ML IN ity of mL 00:00: THE MUSCLE [place] injection 00 1 TIME NOW Medi lula FOR 1 DOSE Branch budesonide- 2021-0 Yes [id number] 2{puff} Inhale 2 [facility] formoteroL 4-26 Puffs 2 ity of (SYMBICORT) 00:00: (two) [place] 160-4.5 00 times Medical mcg/actuati daily. Branch on inhaler EPINEPHrine 0 Yes ADMINISTER [facility] 0.3 mg/0.3 4-26 0.3 ML IN ity of mL 00:00: THE MUSCLE [place] injection 00 1 TIME NOW Medi lula FOR 1 DOSE Branch budesonide- 0 Yes [id number] 2{puff} Inhale 2 [facility] formoteroL 4-26 Puffs 2 ity of (SYMBICORT) 00:00: (two) [place] 160-4.5 00 times Medical mcg/actuati daily. Branch on inhaler EPINEPHrine Yes ADMINISTER [facility] 0.3 mg/0.3 4-26 0.3 ML IN ity of mL 00:00: THE MUSCLE [place] injection 00 1 TIME NOW Medi lula FOR 1 DOSE Branch budesonide- 0 Yes [id number] 2{puff} Inhale 2 [facility] formoteroL 4-26 Puffs 2 ity of (SYMBICORT) 00:00: (two) [place] 160-4.5 00 times Medical mcg/actuati daily. Branch on inhaler budesonide- 0 Yes [id number] 2{puff} Inhale 2 [facility] formoteroL 4-26 Puffs 2 ity of (SYMBICORT) 00:00: (two) [place] 160-4.5 00 times Medical mcg/actuati daily. Branch on inhaler budesonide- 0 Yes [id number] 2{puff} Inhale 2 [facility] formoteroL 4-26 Puffs 2 ity of (SYMBICORT) 00:00: (two) [place] 160-4.5 00 times Medical mcg/actuati daily. Branch on inhaler budesonide- 0 Yes [id number] 2{puff} Inhale 2 [facility] formoteroL 4-26 Puffs 2 ity of (SYMBICORT) 00:00: (two) [place] 160-4.5 00 times Medical mcg/actuati daily. Branch on inhaler budesonide- 2021-0 Yes [id number] 2{puff} Inhale 2 [facility] formoteroL 4-26 Puffs 2 ity of (SYMBICORT) 00:00: (two) [place] 160-4.5 00 times Medical mcg/actuati daily. Branch on inhaler budesonide- Yes [id number] 2{puff} Inhale 2 [facility] formoteroL 4-26 Puffs 2 ity of (SYMBICORT) 00:00: (two) [place] 160-4.5 00 times Medical mcg/actuati daily. Branch on inhaler budesonide- Yes [id number] 2{puff} Inhale 2 [facility] formoteroL 4-26 Puffs 2 ity of (SYMBICORT) 00:00: (two) [place] 160-4.5 00 times Medical mcg/actuati daily. Branch on inhaler budesonide- Yes [id number] 2{puff} Inhale 2 [facility] formoteroL 4-26 Puffs 2 ity of (SYMBICORT) 00:00: (two) [place] 160-4.5 00 times Medical mcg/actuati daily. Branch on inhaler budesonide- Yes [id number] 2{puff} Inhale 2 [facility] formoteroL 4-26 Puffs 2 ity of (SYMBICORT) 00:00: (two) [place] 160-4.5 00 times Medical mcg/actuati daily. Branch on inhaler budesonide- Yes [id number] 2{puff} Inhale 2 [facility] formoteroL 4-26 Puffs 2 ity of (SYMBICORT) 00:00: (two) [place] 160-4.5 00 times Medical mcg/actuati daily. Branch on inhaler budesonide- Yes [id number] 2{puff} Inhale 2 [facility] formoteroL 4-26 Puffs 2 ity of (SYMBICORT) 00:00: (two) [place] 160-4.5 00 times Medical mcg/actuati daily. Branch on inhaler budesonide- Yes [id number] 2{puff} Inhale 2 [facility] formoteroL 4-26 Puffs 2 ity of (SYMBICORT) 00:00: (two) [place] 160-4.5 00 times Medical mcg/actuati daily. Branch on inhaler budesonide- Yes [id number] 2{puff} Inhale 2 [facility] formoteroL 4-26 Puffs 2 ity of (SYMBICORT) 00:00: (two) [place] 160-4.5 00 times Medical mcg/actuati daily. Branch on inhaler budesonide- Yes [id number] 2{puff} Inhale 2 [facility] formoteroL 4-26 Puffs 2 ity of (SYMBICORT) 00:00: (two) [place] 160-4.5 00 times Medical mcg/actuati daily. Branch on inhaler budesonide- Yes [id number] 2{puff} Inhale 2 [facility] formoteroL 4-26 Puffs 2 ity of (SYMBICORT) 00:00: (two) [place] 160-4.5 00 times Medical mcg/actuati daily. Branch on inhaler budesonide- Yes [id number] 2{puff} Inhale 2 [facility] formoteroL 4-26 Puffs 2 ity of (SYMBICORT) 00:00: (two) [place] 160-4.5 00 times Medical mcg/actuati daily. Branch on inhaler budesonide- Yes [id number] 2{puff} Inhale 2 [facility] formoteroL 4-26 Puffs 2 ity of (SYMBICORT) 00:00: (two) [place] 160-4.5 00 times Medical mcg/actuati daily. Branch on inhaler budesonide- Yes [id number] 2{puff} Inhale 2 [facility] formoteroL 4-26 Puffs 2 ity of (SYMBICORT) 00:00: (two) [place] 160-4.5 00 times Medical mcg/actuati daily. Branch on inhaler budesonide- Yes [id number] 2{puff} Inhale 2 [facility] formoteroL 4-26 Puffs 2 ity of (SYMBICORT) 00:00: (two) [place] 160-4.5 00 times Medical mcg/actuati daily. Branch on inhaler budesonide- Yes [id number] 2{puff} Inhale 2 [facility] formoteroL 4-26 Puffs 2 ity of (SYMBICORT) 00:00: (two) [place] 160-4.5 00 times Medical mcg/actuati daily. Branch on inhaler budesonide- Yes [id number] 2{puff} Inhale 2 [facility] formoteroL 4-26 Puffs 2 ity of (SYMBICORT) 00:00: (two) [place] 160-4.5 00 times Medical mcg/actuati daily. Branch on inhaler budesonide- Yes [id number] 2{puff} Inhale 2 [facility] formoteroL 4-26 Puffs 2 ity of (SYMBICORT) 00:00: (two) [place] 160-4.5 00 times Medical mcg/actuati daily. Branch on inhaler budesonide- Yes [id number] 2{puff} Inhale 2 [facility] formoteroL 4-26 Puffs 2 ity of (SYMBICORT) 00:00: (two) [place] 160-4.5 00 times Medical mcg/actuati daily. Branch on inhaler budesonide- Yes [id number] 2{puff} Inhale 2 [facility] formoteroL 4-26 Puffs 2 ity of (SYMBICORT) 00:00: (two) [place] 160-4.5 00 times Medical mcg/actuati daily. Branch on inhaler budesonide- Yes [id number] 2{puff} Inhale 2 [facility] formoteroL 4-26 Puffs 2 ity of (SYMBICORT) 00:00: (two) [place] 160-4.5 00 times Medical mcg/actuati daily. Branch on inhaler budesonide- Yes [id number] 2{puff} Inhale 2 [facility] formoteroL 4-26 Puffs 2 ity of (SYMBICORT) 00:00: (two) [place] 160-4.5 00 times Medical mcg/actuati daily. Branch on inhaler budesonide- Yes [id number] 2{puff} Inhale 2 [facility] formoteroL 4-26 Puffs 2 ity of (SYMBICORT) 00:00: (two) [place] 160-4.5 00 times Medical mcg/actuati daily. Branch on inhaler budesonide- Yes [id number] 2{puff} Inhale 2 [facility] formoteroL 4-26 Puffs 2 ity of (SYMBICORT) 00:00: (two) [place] 160-4.5 00 times Medical mcg/actuati daily. Branch on inhaler budesonide- Yes [id number] 2{puff} Inhale 2 [facility] formoteroL 4-26 Puffs 2 ity of (SYMBICORT) 00:00: (two) [place] 160-4.5 00 times Medical mcg/actuati daily. Branch on inhaler budesonide- Yes [id number] 2{puff} Inhale 2 [facility] formoteroL 4-26 Puffs 2 ity of (SYMBICORT) 00:00: (two) [place] 160-4.5 00 times Medical mcg/actuati daily. Branch on inhaler budesonide- Yes [id number] 2{puff} Inhale 2 [facility] formoteroL 4-26 Puffs 2 ity of (SYMBICORT) 00:00: (two) [place] 160-4.5 00 times Medical mcg/actuati daily. Branch on inhaler budesonide- Yes [id number] 2{puff} Inhale 2 [facility] formoteroL 4-26 Puffs 2 ity of (SYMBICORT) 00:00: (two) [place] 160-4.5 00 times Medical mcg/actuati daily. Branch on inhaler budesonide- Yes [id number] 2{puff} Inhale 2 [facility] formoteroL 4-26 Puffs 2 ity of (SYMBICORT) 00:00: (two) [place] 160-4.5 00 times Medical mcg/actuati daily. Branch on inhaler fluticasone 2023- No [id number] 1{spray Use 1 [facility] propionate 4-26 04-21 } [place] in ity of 50 00:00: 00:00 each [place] mcg/actuati 00 :00 nostril 2 Med ical on nasal (two) Branch spray times daily. buprenorphi Yes APPLY 1 [facility] vers ne 20 4-19 PATCH ON ity of mcg/hour 00:00: THE SKIN [place] PTWK 00 EVERY Medical WEEK. Branch buprenorphi Yes APPLY 1 [facility] vers ne 20 4-19 PATCH ON ity of mcg/hour 00:00: THE SKIN [place] PTWK 00 EVERY Medical WEEK. Branch buprenorphi [...] 00 :00 EVERY Medical WEEK. Branch acetaminoph 2021-0 Yes TAKE 1 [facility] ers [...] 6 Medical HOURS Branch NEEDED losartan 25 0 Yes 25mg Take 25 mg [facility] mg tablet 4-11 by mouth ity of 13:05: daily. [address] losartan 25 2021-0 Yes 25mg Take 25 mg [facility] mg tablet 4-11 by mouth ity of 13:05: daily. [address] losartan 25 2021-0 Yes 25mg Take 25 mg [facility] mg tablet 4-11 by mouth ity of 13:05: daily. [address] losartan 25 2021-0 Yes 25mg Take 25 mg [facility] mg tablet 4-11 by mouth ity of 13:05: daily. [address] losartan 25 0 Yes 25mg Take 25 mg [facility] tablet 4-11 by mouth ity of 13:05: daily. [address] losartan 25 Yes 25mg Take 25 mg [facility] mg tablet 4-11 by mouth ity of 13:05: daily. [address] losartan 25 Yes 25mg Take 25 mg [facility] mg tablet 4-11 by mouth ity of 13:05: daily. [address] losartan 25 Yes 25mg Take 25 mg [facility] mg tablet 4-11 by mouth ity of 13:05: daily. [address] losartan 25 Yes 25mg Take 25 mg [facility] mg tablet 4-11 by mouth ity of 13:05: daily. [address] losartan 25 Yes 25mg Take 25 mg [facility] mg tablet 4-11 by mouth ity of 13:05: daily. [address] losartan 25 Yes 25mg Take 25 mg [facility] mg tablet 4-11 by mouth ity of 13:05: daily. [address] losartan 25 Yes 25mg Take 25 mg [facility] mg tablet 4-11 by mouth ity of 13:05: daily. [address] losartan Yes 25mg Take 25 mg [facility] mg tablet 4-11 by mouth ity of 13:05: daily. [address] losartan Yes 25mg Take 25 mg [facility] mg tablet 4-11 by mouth ity of 13:05: daily. [address] losartan 25 Yes 25mg Take 25 mg [facility] mg tablet 4-11 by mouth ity of 13:05: daily. [address] losartan 25 Yes 25mg Take 25 mg [facility] mg tablet 4-11 by mouth ity of 13:05: daily. [address] losartan 25 Yes 25mg Take 25 mg [facility] tablet 4-11 by mouth ity of 13:05: daily. [address] losartan 25 0 Yes 25mg Take 25 mg [facility] mg tablet 4-11 by mouth ity of 13:05: daily. [address] losartan 25 Yes 25mg Take 25 mg [facility] mg tablet 4-11 by mouth ity of 13:05: daily. [address] losartan 25 Yes 25mg Take 25 mg [facility] mg tablet 4-11 by mouth ity of 13:05: daily. [place] [facility] losartan 25 2-0 Yes 25mg Take 25 mg [facility] mg tablet 4-11 by mouth ity of 13:05: daily. [place] [facility] ACCU-CHEK 2022-0 Yes [facility] SOFTCLIX [...] [facility] SOFTCLIX 4-07 ity of LANCETS 00:00: [place] [address] [facility] Branch ACCU-CHEK 2022-0 Yes [facility] SOFTCLIX 4-07 ity of LANCETS 00:00: [place] [address] Medical Branch ACCU-CHEK 2022-0 Yes [facility] SOFTCLIX 4-07 ity of LANCETS 00:00: [place] [address] Medical Branch ACCU-CHEK 2022-0 Yes [facility] SOFTCLIX 4-07 ity of LANCETS 00:00: [facility] 00 Medical Branch ACCU-CHEK 2022-0 Yes Univers SOFTCLIX 4-07 ity of LANCETS 00:00: [facility] 00 Medical Branch ACCU-CHEK 2022-0 Yes Univers SOFTCLIX 4-07 ity of LANCETS 00:00: [facility] 00 Medical Branch ACCU-CHEK 2022-0 Yes Univers SOFTCLIX 4-07 ity of LANCETS 00:00: [place] [address] Medical Branch ACCU-CHEK 2022-0 Yes [facility] SOFTCLIX [...] [facility] SOFTCLIX 4-07 ity of LANCETS 00:00: [place] [address] Medical Branch ACCU-CHEK 2022-0 Yes [facility] SOFTCLIX [...] Univers SOFTCLIX 4-07 ity of LANCETS 00:00: [place] [address] Medical Branch ACCU-CHEK 2022-0 Yes [facility] SOFTCLIX 4-07 ity of LANCETS 00:00: [place] [address] Medical Branch ACCU-CHEK 2022-0 Yes [facility] SOFTCLIX 4-07 ity of LANCETS 00:00: [place] [address] Medical Branch ACCU-CHEK 2022-0 Yes [facility] SOFTCLIX [...] 00:00: [place] [facility] 00 [facility] Branch ACCU-CHEK 2-0 Yes [facility] SOFTCLIX 4-07 ity of LANCETS 00:00: [place] [facility] 00 Medical Branch ACCU-CHEK 2021-0 Yes Univers SOFTCLIX 4-07 ity of LANCETS 00:00: [place] [facility] 00 Medical Branch ACCU-CHEK 2-0 Yes [facility] SOFTCLIX 4-07 ity of LANCETS 00:00: [place] [facility] 00 Medical Branch ACCU-CHEK 2-0 Yes [facility] SOFTCLIX 4-07 ity of LANCETS 00:00: [place] [facility] 00 Medical Branch ACCU-CHEK 2021-0 Yes [facility] SOFTCLIX 4-07 ity of LANCETS 00:00: [place] [facility] 00 Medical Branch blood sugar 2021-0 Yes [id number] Use as Univers diagnostic 4-02 directed ity o f (ACCU-CHEK 00:00: [place] SMARTVIEW 00 Medical TEST STRIP) Branch strip blood sugar 2021-0 Yes [id number] Use as [facility] diagnostic 4-02 directed ity o f (ACCU-CHEK 00:00: [place] SMARTVIEW 00 Medical TEST STRIP) Branch strip blood sugar 2021-0 Yes [id number] Use as [facility] diagnostic 4-02 directed ity o f (ACCU-CHEK 00:00: [place] SMARTVIEW 00 Medical TEST STRIP) Branch strip blood sugar 2021-0 Yes [id number] Use as [facility] diagnostic 4-02 directed ity o f (ACCU-CHEK 00:00: [place] SMARTVIEW 00 Medical TEST STRIP) Branch strip blood sugar 2021-0 Yes [id number] Use as [facility] diagnostic 4-02 directed ity o f (ACCU-CHEK 00:00: [place] SMARTVIEW 00 Medical TEST STRIP) Branch strip blood sugar 2021-0 Yes [id number] Use as [facility] diagnostic 4-02 directed ity o f (ACCU-CHEK 00:00: [place] SMARTVIEW 00 Medical TEST STRIP) Branch strip blood sugar 2021-0 Yes [id number] Use as [facility] diagnostic 4-02 directed ity o f (ACCU-CHEK 00:00: [place] SMARTVIEW 00 Medical TEST STRIP) Branch strip blood sugar 2021-0 Yes [id number] Use as [facility] diagnostic 4-02 directed ity o f (ACCU-CHEK 00:00: [place] SMARTVIEW 00 Medical TEST STRIP) Branch strip blood sugar 2022-0 Yes [id number] Use as [facility] diagnostic 4-02 directed ity o f (ACCU-CHEK 00:00: [place] SMARTVIEW 00 Medical TEST STRIP) Branch strip blood sugar 2022-0 Yes [id number] Use as [facility] diagnostic 4- directed ity o f (ACCU-CHEK 00:00: [place] SMARTVIEW 00 Medical TEST STRIP) Branch strip blood sugar 2022-0 Yes [id number] Use as [facility] diagnostic 4- directed ity o f (ACCU-CHEK 00:00: [place] SMARTVIEW 00 Medical TEST STRIP) Branch strip blood sugar 2021-0 Yes [id number] Use as [facility] diagnostic 4- directed ity o f (ACCU-CHEK 00:00: [place] SMARTVIEW 00 Medical TEST STRIP) Branch strip blood sugar 2-0 Yes [id number] Use as [facility] diagnostic 4- directed ity o f (ACCU-CHEK 00:00: [place] SMARTVIEW 00 Medical TEST STRIP) Branch strip blood sugar 2022-0 Yes [id number] Use as [facility] diagnostic 4- directed ity o f (ACCU-CHEK 00:00: [place] SMARTVIEW 00 Medical TEST STRIP) Branch strip blood sugar 2-0 Yes [id number] Use as [facility] diagnostic 4- directed ity o f (ACCU-CHEK 00:00: [place] SMARTVIEW 00 Medical TEST STRIP) Branch strip blood sugar 2022-0 Yes [id number] Use as Univers diagnostic 4- directed ity o f (ACCU-CHEK 00:00: [place] SMARTVIEW 00 Medical TEST STRIP) Branch strip blood sugar 2022-0 Yes [id number] Use as Univers diagnostic 4- directed ity o f (ACCU-CHEK 00:00: [place] SMARTVIEW 00 Medical TEST STRIP) Branch strip blood sugar 2022-0 Yes [id number] Use as [facility] diagnostic 4-02 directed ity o f (ACCU-CHEK 00:00: [place] SMARTVIEW 00 Medical TEST STRIP) Branch strip blood sugar 2022-0 Yes [id number] Use as [facility] diagnostic 4-02 directed ity o f (ACCU-CHEK 00:00: [place] SMARTVIEW 00 Medical TEST STRIP) Branch strip blood sugar 2022-0 Yes [id number] Use as [facility] diagnostic 4-02 directed ity o f (ACCU-CHEK 00:00: [place] SMARTVIEW 00 Medical TEST STRIP) Branch strip blood sugar 2021-0 Yes [id number] Use as [facility] diagnostic 4-02 directed ity o f (ACCU-CHEK 00:00: [place] SMARTVIEW 00 Medical TEST STRIP) Branch strip blood sugar 2021-0 Yes [id number] Use as [facility] diagnostic 4- directed ity o f (ACCU-CHEK 00:00: [place] SMARTVIEW 00 Medical TEST STRIP) Branch strip blood sugar 2021-0 Yes [id number] Use as [facility] diagnostic 4- directed ity o f (ACCU-CHEK 00:00: [place] SMARTVIEW 00 Medical TEST STRIP) Branch strip blood sugar 2021-0 Yes [id number] Use as [facility] diagnostic 4- directed ity o f (ACCU-CHEK 00:00: [place] SMARTVIEW 00 Medical TEST STRIP) Branch strip blood sugar 2021-0 Yes [id number] Use as [facility] diagnostic 4- directed ity o f (ACCU-CHEK 00:00: [place] SMARTVIEW 00 Medical TEST STRIP) Branch strip blood sugar 2021-0 Yes [id number] Use as [facility] diagnostic 4- directed ity o f (ACCU-CHEK 00:00: [place] SMARTVIEW 00 Medical TEST STRIP) Branch strip blood sugar 2021-0 Yes [id number] Use as [facility] diagnostic 4- directed ity o f (ACCU-CHEK 00:00: [place] SMARTVIEW 00 Medical TEST STRIP) Branch strip blood sugar 2021-0 Yes [id number] Use as [facility] diagnostic 4- directed ity o f (ACCU-CHEK 00:00: [place] SMARTVIEW 00 Medical TEST STRIP) Branch strip blood sugar 2-0 Yes [id number] Use as [facility] diagnostic 4-02 directed ity o f (ACCU-CHEK 00:00: [place] SMARTVIEW 00 Medical TEST STRIP) Branch strip blood sugar 2-0 Yes [id number] Use as [facility] diagnostic 4-02 directed ity o f (ACCU-CHEK 00:00: [place] SMARTVIEW 00 Medical TEST STRIP) Branch strip blood sugar 2022-0 Yes [id number] Use as [facility] diagnostic 4-02 directed ity o f (ACCU-CHEK 00:00: [place] SMARTVIEW 00 Medical TEST STRIP) Branch strip blood sugar 2-0 Yes [id number] Use as [facility] diagnostic 4-02 directed ity o f (ACCU-CHEK 00:00: [place] SMARTVIEW 00 Medical TEST STRIP) Branch strip blood sugar 2022-0 Yes [id number] Use as [facility] diagnostic 4-02 directed ity o f (ACCU-CHEK 00:00: [place] SMARTVIEW 00 Medical TEST STRIP) Branch strip blood sugar 2022-0 Yes [id number] Use as [facility] diagnostic 4-02 directed ity o f (ACCU-CHEK 00:00: [place] SMARTVIEW 00 Medical TEST STRIP) Branch strip blood sugar 2021-0 Yes [id number] Use as [facility] diagnostic 4- directed ity o f (ACCU-CHEK 00:00: [place] SMARTVIEW 00 Medical TEST STRIP) Branch strip blood sugar 2-0 Yes [id number] Use as [facility] diagnostic 4- directed ity o f (ACCU-CHEK 00:00: [place] SMARTVIEW 00 Medical TEST STRIP) Branch strip blood sugar 2021-0 Yes [id number] Use as [facility] diagnostic 4- directed ity o f (ACCU-CHEK 00:00: [place] SMARTVIEW 00 Medical TEST STRIP) Branch strip blood sugar 2-0 Yes [id number] Use as [facility] diagnostic 4- directed ity o f (ACCU-CHEK 00:00: [place] SMARTVIEW 00 Medical TEST STRIP) Branch strip blood sugar 2022-0 Yes [id number] Use as [facility] diagnostic 4- directed ity o f (ACCU-CHEK 00:00: [place] SMARTVIEW 00 Medical TEST STRIP) Branch strip blood sugar 2022-0 Yes [id number] Use as [facility] diagnostic 4-02 directed ity o f (ACCU-CHEK 00:00: [place] SMARTVIEW 00 Medical TEST STRIP) Branch strip blood sugar 2022-0 Yes [id number] Use as [facility] diagnostic 4-02 directed ity o f (ACCU-CHEK 00:00: [place] SMARTVIEW 00 Medical TEST STRIP) Branch strip blood sugar 2022-0 Yes [id number] Use as [facility] diagnostic 4-02 directed ity o f (ACCU-CHEK 00:00: [place] SMARTVIEW 00 Medical TEST STRIP) Branch strip blood sugar 2022-0 Yes [id number] Use as [facility] diagnostic 4-02 directed ity o f (ACCU-CHEK 00:00: [place] SMARTVIEW 00 Medical TEST STRIP) Branch strip blood sugar 2022-0 Yes [id number] Use as [facility] diagnostic 4-02 directed ity o f (ACCU-CHEK 00:00: [place] SMARTVIEW 00 Medical TEST STRIP) Branch strip blood sugar 2022-0 Yes [id number] Use as [facility] diagnostic 4- directed ity o f (ACCU-CHEK 00:00: [place] SMARTVIEW 00 Medical TEST STRIP) Branch strip blood sugar 2022-0 Yes [id number] Use as [facility] diagnostic 4- directed ity o f (ACCU-CHEK 00:00: [place] SMARTVIEW 00 Medical TEST STRIP) Branch strip blood sugar 2-0 Yes [id number] Use as [facility] diagnostic 4- directed ity o f (ACCU-CHEK 00:00: [place] SMARTVIEW 00 Medical TEST STRIP) Branch strip blood sugar 2022-0 Yes [id number] Use as [facility] diagnostic 4- directed ity o f (ACCU-CHEK 00:00: [place] SMARTVIEW 00 Medical TEST STRIP) Branch strip blood sugar 2022-0 Yes [id number] Use as [facility] diagnostic 4- directed ity o f (ACCU-CHEK 00:00: [place] SMARTVIEW 00 Medical TEST STRIP) Branch strip blood sugar 2-0 Yes [id number] Use as [facility] diagnostic 4- directed ity o f (ACCU-CHEK 00:00: [place] SMARTVIEW 00 Medical TEST STRIP) Branch strip blood sugar 2022-0 Yes [id number] Use as [facility] diagnostic 4- directed ity o f (ACCU-CHEK 00:00: [place] SMARTVIEW 00 Medical TEST STRIP) Branch strip blood sugar 2022-0 Yes [id number] Use as [facility] diagnostic 4-02 directed ity o f (ACCU-CHEK 00:00: [place] SMARTVIEW 00 Medical TEST STRIP) Branch strip blood sugar 2022-0 Yes [id number] Use as [facility] diagnostic 4-02 directed ity o f (ACCU-CHEK 00:00: [place] SMARTVIEW 00 Medical TEST STRIP) Branch strip blood sugar 2022-0 Yes [id number] Use as [facility] diagnostic 4-02 directed ity o f (ACCU-CHEK 00:00: [place] SMARTVIEW 00 Medical TEST STRIP) Branch strip blood sugar 2021-0 Yes [id number] Use as [facility] diagnostic 4-02 directed ity o f (ACCU-CHEK 00:00: [place] SMARTVIEW 00 Medical TEST STRIP) Branch strip blood sugar 2021-0 Yes [id number] Use as [facility] diagnostic 4-02 directed ity o f (ACCU-CHEK 00:00: [place] SMARTVIEW 00 Medical TEST STRIP) Branch strip blood sugar 2021-0 Yes [id number] Use as [facility] diagnostic 4- directed ity o f (ACCU-CHEK 00:00: [place] SMARTVIEW 00 Medical TEST STRIP) Branch strip blood sugar 2021-0 Yes [id number] Use as [facility] diagnostic 4- directed ity o f (ACCU-CHEK 00:00: [place] SMARTVIEW 00 Medical TEST STRIP) Branch strip blood sugar 2021-0 Yes [id number] Use as [facility] diagnostic 4- directed ity o f (ACCU-CHEK 00:00: [place] SMARTVIEW 00 Medical TEST STRIP) Branch strip blood sugar 2021-0 Yes [id number] Use as [facility] diagnostic 4- directed ity o f (ACCU-CHEK 00:00: [place] SMARTVIEW 00 Medical TEST STRIP) Branch strip blood sugar 2021-0 Yes [id number] Use as [facility] diagnostic 4- directed ity o f (ACCU-CHEK 00:00: [place] SMARTVIEW 00 Medical TEST STRIP) Branch strip blood sugar 2021-0 Yes [id number] Use as [facility] diagnostic 4- directed ity o f (ACCU-CHEK 00:00: [place] SMARTVIEW 00 Medical TEST STRIP) Branch strip blood sugar 2021-0 Yes [id number] Use as [facility] diagnostic 4-02 directed ity o f (ACCU-CHEK 00:00: [place] SMARTVIEW 00 Medical TEST STRIP) Branch strip blood sugar 2021-0 Yes [id number] Use as [facility] diagnostic 4-02 directed ity o f (ACCU-CHEK 00:00: [place] SMARTVIEW 00 Medical TEST STRIP) Branch strip blood sugar 2021-0 Yes [id number] Use as [facility] diagnostic 4-02 directed ity o f (ACCU-CHEK 00:00: [place] SMARTVIEW 00 Medical TEST STRIP) Branch strip blood sugar 2022-0 2023- No [id number] Use as [facility] diagnostic 4-02 - directed ity of (ACCU-CHEK 00:00: 00:00 [place] SMARTVIEW 00 :00 Medical TEST STRIP) Branch strip blood sugar 0 3- No [id number] Use as Univers diagnostic 08-12 directed ity of (ACCU-CHEK 00:00: 00:00 [place] SMARTVIEW 00 :00 Medical TEST STRIP) Branch strip blood sugar 0 3- No [id number] Use as [facility] diagnostic 08-12 directed ity of (ACCU-CHEK 00:00: 00:00 [place] SMARTVIEW 00 :00 Medical TEST STRIP) Branch strip blood sugar 0 2022- No [id number] Use as [facility] diagnostic 08-12 directed ity of (ACCU-CHEK 00:00: 00:00 [place] SMARTVIEW 00 :00 Medical TEST STRIP) Branch strip rosuvastati Yes [id number] 5mg Take 1 Univers n 5 mg 3-23 tablet by ity of tablet 00:00: mouth [place] 00 daily. Medical Branch rosuvastati Yes [id number] 5mg Take 1 Univers n 5 mg 3-23 tablet by ity of tablet 00:00: mouth [place] 00 daily. Medical Branch rosuvastati Yes [id number] 5mg Take 1 [facility] n 5 mg 3-23 tablet by ity of tablet 00:00: mouth [place] 00 daily. Medical Branch rosuvastati Yes [id number] 5mg Take 1 [facility] n 5 mg 3-23 tablet by ity of tablet 00:00: mouth [place] 00 daily. Medical Branch rosuvastati Yes [id number] 5mg Take 1 [facility] n 5 mg 3-23 tablet by ity of tablet 00:00: mouth [place] 00 daily. Medical Branch rosuvastati Yes [id number] 5mg Take 1 [facility] n 5 mg 3-23 tablet by ity of tablet 00:00: mouth [place] 00 daily. Medical Branch rosuvastati Yes [id number] 5mg Take 1 Univers n 5 mg 3-23 tablet by ity of tablet 00:00: mouth [place] 00 daily. Medical Branch rosuvastati Yes [id number] 5mg Take 1 Univers n 5 mg 3-23 tablet by ity of tablet 00:00: mouth [place] 00 daily. [facility] Branch rosuvastati Yes [id number] 5mg Take 1 Univers n 5 mg 3-23 tablet by ity of tablet 00:00: mouth [place] 00 daily. [facility] Branch rosuvastati Yes [id number] 5mg Take 1 Univers n 5 mg 3-23 tablet by ity of tablet 00:00: mouth [place] 00 daily. [facility] Branch rosuvastati Yes [id number] 5mg Take 1 Univers n 5 mg 3-23 tablet by ity of tablet 00:00: mouth [place] 00 daily. [facility] Branch rosuvastati Yes [id number] 5mg Take 1 Univers n 5 mg 3-23 tablet by ity of tablet 00:00: mouth [place] 00 daily. [facility] Branch rosuvastati Yes [id number] 5mg Take 1 Univers n 5 mg 3-23 tablet by ity of tablet 00:00: mouth [place] 00 daily. [facility] Branch rosuvastati Yes [id number] 5mg Take 1 Univers n 5 mg 3-23 tablet by ity of tablet 00:00: mouth [place] 00 daily. [facility] Branch rosuvastati Yes [id number] 5mg Take 1 [facility] n 5 mg 3-23 tablet by ity of tablet 00:00: mouth [place] 00 daily. [facility] Branch rosuvastati Yes [id number] 5mg Take 1 [facility] n 5 mg 3-23 tablet by ity of tablet 00:00: mouth [place] 00 daily. [facility] Branch rosuvastati Yes [id number] 5mg Take 1 [facility] n 5 mg 3-23 tablet by ity of tablet 00:00: mouth [place] 00 daily. [facility] Branch rosuvastati Yes [id number] 5mg Take 1 [facility] n 5 mg 3-23 tablet by ity of tablet 00:00: mouth [place] 00 daily. [facility] Branch rosuvastati Yes [id number] 5mg Take 1 [facility] n 5 mg 3-23 tablet by ity of tablet 00:00: mouth [place] 00 daily. [facility] rosuvastati Yes [id number] 5mg Take 1 [facility] n 5 mg 3-23 tablet by ity of tablet 00:00: mouth [place] 00 daily. [facility] rosuvastati 2022-0 Yes [id number] 5mg Take 1 [facility] n 5 mg 3-23 tablet by ity of tablet 00:00: mouth [place] 00 daily. [facility] rosuvastati Yes [id number] 5mg Take 1 [facility] n 5 mg 3-23 tablet by ity of tablet 00:00: mouth [place] 00 daily. [facility] rosuvastati Yes [id number] 5mg Take 1 [facility] n 5 mg 3-23 tablet by ity of tablet 00:00: mouth [place] 00 daily. [facility] Branch rosuvastati Yes [id number] 5mg Take 1 [facility] n 5 mg 3-23 tablet by ity of tablet 00:00: mouth [place] 00 daily. [facility] rosuvastati Yes [id number] 5mg Take 1 [facility] n 5 mg 3-23 tablet by ity of tablet 00:00: mouth [place] 00 daily. [facility] rosuvastati Yes [id number] 5mg Take 1 [facility] n 5 mg 3-23 tablet by ity of tablet 00:00: mouth [place] 00 daily. [facility] rosuvastati Yes [id number] 5mg Take 1 [facility] n 5 mg 3-23 tablet by ity of tablet 00:00: mouth [place] 00 daily. [facility] rosuvastati Yes [id number] 5mg Take 1 [facility] n 5 mg 3-23 tablet by ity of tablet 00:00: mouth [place] 00 daily. [facility] rosuvastati Yes [id number] 5mg Take 1 [facility] n 5 mg 3-23 tablet by ity of tablet 00:00: mouth [place] 00 daily. [facility] Branch rosuvastati Yes [id number] 5mg Take 1 [facility] n 5 mg 3-23 tablet by ity of tablet 00:00: mouth [place] 00 daily. [facility] rosuvastati Yes [id number] 5mg Take 1 [facility] n 5 mg 3-23 tablet by ity of tablet 00:00: mouth [place] 00 daily. [facility] rosuvastati Yes [id number] 5mg Take 1 [facility] n 5 mg 3-23 tablet by ity of tablet 00:00: mouth [place] 00 daily. [facility] rosuvastati Yes [id number] 5mg Take 1 [facility] n 5 mg 3-23 tablet by ity of tablet 00:00: mouth [place] 00 daily. [facility] rosuvastati Yes [id number] 5mg Take 1 [facility] n 5 mg 3-23 tablet by ity of tablet 00:00: mouth [place] 00 daily. [facility] rosuvastati Yes [id number] 5mg Take 1 [facility] n 5 mg 3-23 tablet by ity of tablet 00:00: mouth [place] 00 daily. [facility] rosuvastati Yes [id number] 5mg Take 1 [facility] n 5 mg 3-23 tablet by ity of tablet 00:00: mouth [place] 00 daily. [facility] Branch rosuvastati Yes [id number] 5mg Take 1 [facility] n 5 mg 3-23 tablet by ity of tablet 00:00: mouth [place] 00 daily. [facility] rosuvastati Yes [id number] 5mg Take 1 [facility] n 5 mg 3-23 tablet by ity of tablet 00:00: mouth [place] 00 daily. [facility] rosuvastati Yes [id number] 5mg Take 1 [facility] n 5 mg 3-23 tablet by ity of tablet 00:00: mouth [place] 00 daily. [facility] Branch rosuvastati Yes [id number] 5mg Take 1 [facility] n 5 mg 3-23 tablet by ity of tablet 00:00: mouth [place] 00 daily. [facility] rosuvastati Yes [id number] 5mg Take 1 [facility] n 5 mg 3-23 tablet by ity of tablet 00:00: mouth [place] 00 daily. [facility] Branch rosuvastati Yes [id number] 5mg Take 1 [facility] n 5 mg 3-23 tablet by ity of tablet 00:00: mouth [place] 00 daily. [facility] Branch rosuvastati Yes [id number] 5mg Take 1 [facility] n 5 mg 3-23 tablet by ity of tablet 00:00: mouth [place] 00 daily. [facility] rosuvastati Yes [id number] 5mg Take 1 [facility] n 5 mg 3-23 tablet by ity of tablet 00:00: mouth [place] 00 daily. [facility] rosuvastati Yes [id number] 5mg Take 1 [facility] n 5 mg 3-23 tablet by ity of tablet 00:00: mouth [place] 00 daily. [facility] rosuvastati 2022-0 Yes [id number] 5mg Take 1 [facility] n 5 mg 3-23 tablet by ity of tablet 00:00: mouth [place] 00 daily. [facility] Branch rosuvastati Yes [id number] 5mg Take 1 [facility] n 5 mg 3-23 tablet by ity of tablet 00:00: mouth [place] 00 daily. [facility] Branch rosuvastati Yes [id number] 5mg Take 1 [facility] n 5 mg 3-23 tablet by ity of tablet 00:00: mouth [place] 00 daily. [facility] rosuvastati Yes [id number] 5mg Take 1 [facility] n 5 mg 3-23 tablet by ity of tablet 00:00: mouth [place] 00 daily. [facility] Branch rosuvastati Yes [id number] 5mg Take 1 [facility] n 5 mg 3-23 tablet by ity of tablet 00:00: mouth [place] 00 daily. [facility] Branch rosuvastati Yes [id number] 5mg Take 1 [facility] n 5 mg 3-23 tablet by ity of tablet 00:00: mouth [place] 00 daily. [facility] rosuvastati Yes [id number] 5mg Take 1 [facility] n 5 mg 3-23 tablet by ity of tablet 00:00: mouth [place] 00 daily. [facility] rosuvastati Yes [id number] 5mg Take 1 [facility] n 5 mg 3-23 tablet by ity of tablet 00:00: mouth [place] 00 daily. [facility] Branch rosuvastati Yes [id number] 5mg Take 1 [facility] n 5 mg 3-23 tablet by ity of tablet 00:00: mouth [place] 00 daily. [facility] Branch rosuvastati Yes [id number] 5mg Take 1 [facility] n 5 mg 3-23 tablet by ity of tablet 00:00: mouth [place] 00 daily. [facility] Branch rosuvastati Yes [id number] 5mg Take 1 [facility] n 5 mg 3-23 tablet by ity of tablet 00:00: mouth [place] 00 daily. [facility] Branch rosuvastati Yes [id number] 5mg Take 1 [facility] n 5 mg 3-23 tablet by ity of tablet 00:00: mouth [place] 00 daily. [facility] rosuvastati Yes [id number] 5mg Take 1 [facility] n 5 mg 3-23 tablet by ity of tablet 00:00: mouth [place] 00 daily. Medical Branch rosuvastati 0 Yes [id number] 5mg Take 1 [facility] n 5 mg 3-23 tablet by ity of tablet 00:00: mouth [place] 00 daily. Medical Branch rosuvastati 0 Yes [id number] 5mg Take 1 [facility] n 5 mg 3-23 tablet by ity of tablet 00:00: mouth [place] 00 daily. Medical Branch rosuvastati 0 Yes [id number] 5mg Take 1 [facility] n 5 mg 3-23 tablet by ity of tablet 00:00: mouth [place] 00 daily. Medical Branch rosuvastati Yes [id number] 5mg Take 1 [facility] n 5 mg 3-23 tablet by ity of tablet 00:00: mouth [place] 00 daily. Medical Branch rosuvastati Yes [id number] 5mg Take 1 [facility] n 5 mg 3-23 tablet by ity of tablet 00:00: mouth [place] 00 daily. Medical Branch rosuvastati Yes [id number] 5mg Take 1 [facility] n 5 mg 3-23 tablet by ity of tablet 00:00: mouth [place] 00 daily. Medical Branch rosuvastati Yes [id number] 5mg Take 1 [facility] n 5 mg 3-23 tablet by ity of tablet 00:00: mouth [place] 00 daily. Medical Branch pantoprazol Yes 40mg Take 40 mg [...] [place] 00 times Medical daily. Branch pantoprazol 0 Yes 40mg Take 40 mg [facility] e [...] mouth 4 ity of tablet 00:00: (four) [place] 00 times Medical daily. Branch pantoprazol 2-0 Yes 40mg Take 40 mg [facility] e 40 mg EC 3-18 by mouth ity o f tablet 00:00: daily. Medical Branch ondansetron 2022-0 Yes TAKE 1 Univ ers 4 mg tablet 3-18 TABLET BY ity of 00:00: MOUTH [place] 00 EVERY 12 Medical HOURS Branch NEEDED dicyclomine 2-0 Yes 20mg Take 20 mg [facility] 20 mg 3-18 by mouth 4 ity of tablet 00:00: (four) [place] 00 times Medical daily. Branch pantoprazol 2-0 Yes 40mg Take 40 mg [facility] e 40 mg EC 3-18 by mouth ity o f tablet 00:00: daily. [place] [facility] ondansetron 2-0 Yes TAKE 1 Univ ers 4 mg tablet 3-18 TABLET BY ity of 00:00: MOUTH [place] EVERY 12 Medical HOURS Branch NEEDED dicyclomine 2-0 Yes 20mg Take 20 mg [facility] 20 mg 3-18 by mouth 4 ity of tablet 00:00: (four) [place] 00 times Medical daily. Branch pantoprazol 2-0 Yes 40mg Take 40 mg [facility] e 40 mg EC 3-18 by mouth ity o f tablet 00:00: daily. Medical Branch ondansetron 2-0 Yes TAKE 1 Univ ers 4 mg tablet 3-18 TABLET BY ity of 00:00: MOUTH [place] 00 EVERY 12 Medical HOURS Branch NEEDED dicyclomine 2-0 Yes 20mg Take 20 mg [facility] 20 mg 3-18 by mouth 4 ity of tablet 00:00: (four) [place] 00 times Medical daily. Branch pantoprazol 2-0 Yes 40mg Take 40 mg [facility] e 40 mg EC 3-18 by mouth ity o f tablet 00:00: daily. Medical Branch ondansetron 2022-0 Yes TAKE 1 [facility] ers 4 mg tablet 3-18 TABLET BY ity of 00:00: MOUTH [place] 00 EVERY 12 Medical HOURS Branch NEEDED dicyclomine 2-0 Yes 20mg Take 20 mg [facility] 20 mg 3-18 by mouth 4 ity of tablet 00:00: (four) [place] 00 times Medical daily. Branch pantoprazol 2022-0 Yes 40mg Take 40 mg [facility] e 40 mg EC 3-18 by mouth ity o f tablet 00:00: daily. [place] [facility] ondansetron 2021-0 Yes TAKE 1 [facility] ers 4 mg tablet 3-18 TABLET BY ity of 00:00: MOUTH [place] 00 EVERY 12 Medical HOURS Branch NEEDED dicyclomine 2-0 Yes 20mg Take 20 mg [facility] 20 mg 3-18 by mouth 4 ity of tablet 00:00: (four) [place] 00 times Medical daily. Branch pantoprazol 2021-0 Yes 40mg Take 40 mg [facility] e 40 mg EC 3-18 by mouth ity o f tablet 00:00: daily. [place] [facility] ondansetron 2021-0 Yes TAKE 1 [facility] ers 4 mg tablet 3-18 TABLET BY ity of 00:00: MOUTH [place] 00 EVERY 12 Medical HOURS Branch NEEDED dicyclomine 2021-0 Yes 20mg Take 20 mg [facility] 20 mg 3-18 by mouth 4 ity of tablet 00:00: (four) [place] 00 times Medical daily. Branch pantoprazol 2021-0 Yes 40mg Take 40 mg [facility] e 40 mg EC 3-18 by mouth ity o f tablet 00:00: daily. [place] [facility] ondansetron 2021-0 Yes TAKE 1 Univ ers 4 mg tablet 3-18 TABLET BY ity of 00:00: MOUTH [place] 00 EVERY 12 Medical HOURS Branch NEEDED dicyclomine 2021-0 Yes 20mg Take 20 mg [facility] 20 mg 3-18 by mouth 4 [facility] of tablet 00:00: (four) [place] 00 times Medical daily. Branch pantoprazol 2021-0 Yes 40mg Take 40 mg Univers e 40 mg EC 3-18 by mouth ity o f tablet 00:00: daily. [place] [facility] ondansetron 2021-0 Yes TAKE 1 Univ ers 4 mg tablet 3-18 TABLET BY ity of 00:00: MOUTH [place] 00 EVERY 12 Medical HOURS Branch NEEDED dicyclomine 2-0 Yes 20mg Take 20 mg [facility] 20 mg 3-18 by mouth 4 ity of tablet 00:00: (four) [place] 00 times Medical daily. Branch pantoprazol 2-0 2021- No 40mg Take 40 mg Univers e 40 mg EC 3-18 02-02 by mouth ity of tablet 00:00: 00:00 daily. [place] 00 :00 Medical Branch ondansetron 2021- No TAKE 1 Uni vers 4 mg tablet 07-28 TABLET BY it y of 00:00: 00:00 MOUTH [place] 00 :00 EVERY 12 Medical HOURS Branch NEEDED dicyclomine 2021- No 20mg Take 20 mg [facility] 20 mg 07-28 by mouth 4 ity of tablet 00:00: 00:00 (four) [place] 00 :00 times Medical daily. Branch pantoprazol No 40mg Take 40 mg [facility] e 40 mg EC 07-28 by mouth ity of tablet 00:00: 00:00 daily. [place] 00 :00 Medical Branch ondansetron 2021- No TAKE 1 [facility] vers 4 mg tablet 07-28 TABLET BY it y of 00:00: 00:00 MOUTH [place] 00 :00 EVERY 12 Medical HOURS Branch NEEDED dicyclomine No 20mg Take 20 mg [facility] 20 mg 07-28 by mouth 4 ity of tablet 00:00: 00:00 (four) [place] 00 :00 times Medical daily. Branch montelukast Yes 10mg Take 10 mg [facility] (SINGULAIR) 3-11 by mouth. ity of 10 mg 14:26: [address] montelukast Yes 10mg Take 10 mg [facility] (SINGULAIR) 3-11 by mouth. ity of 10 mg 14:26: [address] montelukast Yes 10mg Take 10 mg [facility] (SINGULAIR) 3-11 by mouth. ity of 10 mg 14:26: [address] montelukast Yes 10mg Take 10 mg [facility] (SINGULAIR) 3-11 by mouth. ity of 10 mg 14:26: [address] metFORMIN 2021- No [id number] 1000mg Take 1 [facility] 1,000 mg 3- tablet by ity o f tablet 00:00: 00:00 mouth 2 [place] 00 :00 (two) Medical times [place] daily with meals. cyclobenzap Yes TAKE 1 [...] AREA FOUR TIMES DAILY DIRECTED pregabalin 2022-0 3- No TAKE 1 [facility] ers 200 mg 2-15 - CAPSULE BY ity of capsule 00:00: 00:00 MOUTH [place] 00 :00 TWICE Medical DAILY Branch DIRECTED pregabalin 2022-0 3- No TAKE 1 [facility] ers 200 mg 2-15 - CAPSULE BY ity of capsule 00:00: 00:00 MOUTH [place] 00 :00 TWICE Medical DAILY Branch DIRECTED pregabalin 2022- No TAKE 1 [facility] ers 200 mg 06-27 CAPSULE BY ity of capsule 00:00: 00:00 MOUTH [place] 00 :00 TWICE Medical DAILY Branch DIRECTED pregabalin 2022- No TAKE 1 [facility] ers 200 mg 06-27- CAPSULE BY ity of capsule 00:00: 00:00 MOUTH [place] 00 :00 TWICE Medical DAILY Branch DIRECTED albuterol 2018-05 Yes [id number] 2{puff} Inhale 2 [facility] (PROAIR 2-17 Puffs ity of HFA) 90 00:00: every 6 [place] mcg/actuati 00 (six) Medical on inhaler hours as Branc h needed for Wheezing, Shortness of Breath or Chest tightness. albuterol 2018-05 Yes [id number] 2{puff} Inhale 2 [facility] (PROAIR 2-17 Puffs ity of HFA) 90 00:00: every 6 [place] mcg/actuati 00 (six) Medical on inhaler hours as Branc h needed for Wheezing, Shortness of Breath or Chest tightness. albuterol 2018-05 Yes [id number] 2{puff} Inhale 2 [facility] (PROAIR 2-17 Puffs ity of HFA) 90 00:00: every 6 [place] mcg/actuati 00 (six) Medical on inhaler hours as Branc h needed for Wheezing, Shortness of Breath or Chest tightness. albuterol 2018-05 Yes [id number] 2{puff} Inhale 2 [facility] (PROAIR 2-17 Puffs ity of HFA) 90 00:00: every 6 [place] mcg/actuati 00 (six) Medical on inhaler hours as Branc h needed for Wheezing, Shortness of Breath or Chest tightness. albuterol 2018-05 Yes [id number] 2{puff} Inhale 2 [facility] (PROAIR 2-17 Puffs ity of HFA) 90 00:00: every 6 [place] mcg/actuati 00 (six) Medical on inhaler hours as Branc h needed for Wheezing, Shortness of Breath or Chest tightness. albuterol 2018-05 Yes [id number] 2{puff} Inhale 2 [facility] (PROAIR 2-17 Puffs ity of HFA) 90 00:00: every 6 [place] mcg/actuati 00 (six) Medical on inhaler hours as Branc h needed for Wheezing, Shortness of Breath or Chest tightness. albuterol 2018-05 Yes [id number] 2{puff} Inhale 2 [facility] (PROAIR 2-17 Puffs ity of HFA) 90 00:00: every 6 [place] mcg/actuati 00 (six) Medical on inhaler hours as Branc h needed for Wheezing, Shortness of Breath or Chest tightness. albuterol 2018-05 Yes [id number] 2{puff} Inhale 2 [facility] (PROAIR 2-17 Puffs ity of HFA) 90 00:00: every 6 [place] mcg/actuati 00 (six) Medical on inhaler hours as Branc h needed for Wheezing, Shortness of Breath or Chest tightness. albuterol 2018-05 Yes [id number] 2{puff} Inhale 2 [facility] (PROAIR 2-17 Puffs ity of HFA) 90 00:00: every 6 [place] mcg/actuati 00 (six) Medical on inhaler hours as Branc h needed for Wheezing, Shortness of Breath or Chest tightness. albuterol 2018-05 Yes [id number] 2{puff} Inhale 2 [facility] (PROAIR 2-17 Puffs ity of HFA) 90 00:00: every 6 [place] mcg/actuati 00 (six) Medical on inhaler hours as Branc h needed for Wheezing, Shortness of Breath or Chest tightness. albuterol 2018-05 Yes [id number] 2{puff} Inhale 2 [facility] (PROAIR 2-17 Puffs ity of HFA) 90 00:00: every 6 [place] mcg/actuati 00 (six) Medical on inhaler hours as Branc h needed for Wheezing, Shortness of Breath or Chest tightness. albuterol 2018-05 Yes [id number] 2{puff} Inhale 2 [facility] (PROAIR 2-17 Puffs ity of HFA) 90 00:00: every 6 [place] mcg/actuati 00 (six) Medical on inhaler hours as Branc h needed for Wheezing, Shortness of Breath or Chest tightness. albuterol 2018-05 Yes [id number] 2{puff} Inhale 2 [facility] (PROAIR 2-17 Puffs ity of HFA) 90 00:00: every 6 [place] mcg/actuati 00 (six) Medical on inhaler hours as Branc h needed for Wheezing, Shortness of Breath or Chest tightness. albuterol 2018-05 Yes [id number] 2{puff} Inhale 2 [facility] (PROAIR 2-17 Puffs ity of HFA) 90 00:00: every 6 [place] mcg/actuati 00 (six) Medical on inhaler hours as Branc h needed for Wheezing, Shortness of Breath or Chest tightness. albuterol 2018-05 Yes [id number] 2{puff} Inhale 2 [facility] (PROAIR 2-17 Puffs ity of HFA) 90 00:00: every 6 [place] mcg/actuati 00 (six) Medical on inhaler hours as Branc h needed for Wheezing, Shortness of Breath or Chest tightness. albuterol 2018-05 Yes [id number] 2{puff} Inhale 2 [facility] (PROAIR 2-17 Puffs ity of HFA) 90 00:00: every 6 [place] mcg/actuati 00 (six) Medical on inhaler hours as Branc h needed for Wheezing, Shortness of Breath or Chest tightness. albuterol 2018-05 Yes [id number] 2{puff} Inhale 2 [facility] (PROAIR 2-17 Puffs ity of HFA) 90 00:00: every 6 [place] mcg/actuati 00 (six) Medical on inhaler hours as Branc h needed for Wheezing, Shortness of Breath or Chest tightness. albuterol 2018-05 Yes [id number] 2{puff} Inhale 2 [facility] (PROAIR 2-17 Puffs ity of HFA) 90 00:00: every 6 [place] mcg/actuati 00 (six) Medical on inhaler hours as Branc h needed for Wheezing, Shortness of Breath or Chest tightness. albuterol 2018-05 Yes [id number] 2{puff} Inhale 2 [facility] (PROAIR 2-17 Puffs ity of HFA) 90 00:00: every 6 [place] mcg/actuati 00 (six) Medical on inhaler hours as Branc h needed for Wheezing, Shortness of Breath or Chest tightness. albuterol 2018-05 Yes [id number] 2{puff} Inhale 2 [facility] (PROAIR 2-17 Puffs ity of HFA) 90 00:00: every 6 [place] mcg/actuati 00 (six) Medical on inhaler hours as Branc h needed for Wheezing, Shortness of Breath or Chest tightness. albuterol 2018-05- No [id number] 2{puff} Inhale 2 [facility] (PROAIR 2-17 11-22 Puffs ity of HFA) 90 00:00: 00:00 every 6 [place] mcg/actuati 00 :00 (six) Medical on inhaler hours as Branc h needed for Wheezing, Shortness of Breath or Chest tightness. albuterol 2018-05- No [id number] 2{puff} Inhale 2 [facility] (PROAIR 2-17 11-22 Puffs ity of HFA) 90 00:00: 00:00 every 6 [place] mcg/actuati 00 :00 (six) Medical on inhaler hours as Branc h needed for Wheezing, Shortness of Breath or Chest tightness. albuterol 2018-05- No [id number] 2{puff} Inhale 2 [facility] (PROAIR 2-17 11-22 Puffs ity of HFA) 90 00:00: 00:00 every 6 [place] mcg/actuati 00 :00 (six) Medical on inhaler hours as Branc h needed for Wheezing, Shortness of Breath or Chest tightness. albuterol 2018-05- No [id number] 2{puff} Inhale 2 [facility] (PROAIR 2-17 11-22 Puffs ity of HFA) 90 00:00: 00:00 every 6 [place] mcg/actuati 00 :00 (six) Medical on inhaler hours as Branc h needed for Wheezing, Shortness of Breath or Chest tightness. albuterol 2018-05- No [id number] 2{puff} Inhale 2 [facility] (PROAIR 2-17 11-22 [...] (two) l times a day with meals. metFORMIN 2019-0 Yes 1000mg Q.5D Take 1,000 [...] tablet 08:46: daily. [facility] a 09 l sertraline 2019-0 Yes 50mg QD Take 50 [...] 08:46: nightly. [facility]osp[facility] tablet 09 l promethazin 2018-0 Yes 25mg Q6H Take 25 mg [facility] (PHENERGAN) 08:46: every 6 Hos pamela 25 MG 09 (six) l tablet hours as needed for nausea or vomiting. rosuvastati 2018-0 Yes 10mg QD Take 10 mg [facility] (CRESTOR) 2-[address] 10 MG 08:46: nightly. [facility]osp[facility] tablet 09 l empaglifloz 2018-0 Yes 10mg QD Take 10 mg [facility] 2-[address] (JARDIANCE) 08:46: every Hospi ta 10 mg 09 morning. l tablet tablet amLODIPine 0 Yes 5mg QD Take 5 mg [facility] (NORVASC) 5 2-[address] mg tablet 08:46: daily. Hospit a 09 l LYRICA 200 2017-0 Yes 1{tbl} Q.[id number] Take 1 [facility] capsule 5-[id number] 00:00: 3D mouth 3 [facility]osp[facility] 00 (three) l times a day. LYRICA 200 2017- Yes 1{tbl} Q.[id number] Take 1 [facility] capsule 5-[id number] 00:00: 3D mouth 3 [facility] 00 (three) l times a day. LYRICA 200 2017-0 Yes 1{tbl} Q.[id number] Take 1 [facility] capsule 5-[id number] 00:00: 3D mouth 3 [facility]osp[facility] 00 (three) l times a day. LYRICA 200 2017-0 Yes 1{tbl} Q.[id number] Take 1 [facility] capsule 5-[id number] 00:00: 3D mouth 3 [facility]osp[facility] 00 (three) l times a day. LYRICA 200 2018-0 Yes 1{tbl} Q.[id number] Take 1 [facility] capsule 5-[id number] 00:00: 3D mouth 3 [facility]osp[facility] 00 (three) l times a day. LYRICA 200 Yes 1{tbl} Q.[id number] Take 1 [facility] 5-[id number] 00:00: 3D mouth 3 [facility]osp[facility] 00 (three) l times a day. LYRICA 200 Yes 1{tbl} Q.[id number] Take 1 [facility] 5-[id number] 00:00: 3D mouth 3 [facility]osp[facility] 00 (three) l times a day. LYRICA 200 Yes 1{tbl} Q.[id number] Take 1 [facility] 5-[id number] 00:00: 3D mouth 3 [facility]osp[facility] 00 (three) l times a day. LYRICA 200 Yes 1{tbl} Q.[id number] Take 1 [facility] 5-[id number] 00:00: 3D mouth 3 [facility]osp[facility] 00 (three) l times a day. LYRICA 200 Yes 1{tbl} Q.[id number] Take 1 [facility] 5-[id number] 00:00: 3D mouth 3 [facility]osp[facility] 00 (three) l times a day. LYRICA 200 Yes 1{tbl} Q.[id number] Take 1 [facility] 5-[id number] 00:00: 3D mouth 3 [facility]osp[facility] 00 (three) l times a day. LYRICA 200 Yes 1{tbl} Q.[id number] Take 1 [facility] 5-[id number] 00:00: 3D mouth 3 [facility]osp[facility] 00 (three) l times a day. LYRICA 200 Yes 1{tbl} Q.[id number] Take 1 [facility] 5-[id number] 00:00: 3D mouth 3 [facility]osp[facility] 00 (three) l times a day. LYRICA 200 Yes 1{tbl} Q.[id number] Take 1 [facility] 5-[id number] 00:00: 3D mouth 3 [facility]ospita 00 (three) l times a day. LYRICA 200 Yes 1{tbl} Q.[id number] Take 1 [facility] 5-[id number] 00:00: 3D mouth 3 [facility]osp[facility] 00 (three) l times a day. LYRICA 200 Yes 1{tbl} Q.[id number] Take 1 [facility] capsule 5-[id number] 00:00: 3D mouth 3 [facility]ospita 00 (three) l times a day. LYRICA 200 Yes 1{tbl} Q.[id number] Take 1 [facility] 5-[id number] 00:00: 3D mouth 3 [...] l ACCU-CHEK 2016-05 Yes TK [facility] GUIDE 2- DIRECTED st [...] Completed Universit y of Conjugate, [email or web address] 00:00:00 [facility] dical (Prevnar 20) Branch Zoster Vaccine 2022-04-22 Completed Scratch Hard 00:00:00 [facility] Pneumococcal 20 2022-04-22 Completed Universit y of Conjugate, [email or web address] 00:00:00 [facility] dical (Prevnar 20) Branch Zoster Vaccine 2022-04-22 Completed Scratch Hard 00:00:00 [facility] Pneumococcal 20 2022-04-22 Completed Universit y of Conjugate, [email or web address] 00:00:00 [facility] dical (Prevnar 20) Branch Zoster Vaccine 2022-04-22 Completed University of Recombinant 00:00:00 [facility] Pneumococcal 20 2022-04-22 Completed Universit y of Conjugate, [email or web address] 00:00:00 [facility] dical (Prevnar 20) Branch Zoster Vaccine 2022-04-22 Completed University of Recombinant 00:00:00 [facility] Pneumococcal 20 2022-04-22 Completed Universit y of Conjugate, [email or web address] 00:00:00 [facility] dical (Prevnar 20) Branch Zoster Vaccine 2022-04-22 Completed University of Recombinant 00:00:00 [facility] Pneumococcal 20 2022-04-22 Completed Universit y of Conjugate, [email or web address] 00:00:00 [facility] dical (Prevnar 20) Branch Zoster Vaccine 2022-04-22 Completed University of Recombinant 00:00:00 [facility] Pneumococcal 20 2022-04-22 Completed Universit y of Conjugate, [email or web address] 00:00:00 [facility] dical (Prevnar 20) Branch Zoster Vaccine 2022-04-22 Completed University of Recombinant 00:00:00 [facility] Pneumococcal 20 2022-04-22 Completed Universit y of Conjugate, [email or web address] 00:00:00 [facility] dical (Prevnar 20) Branch Zoster Vaccine 2022-04-22 Completed University of Recombinant 00:00:00 [facility] Pneumococcal 20 2022-04-22 Completed Universit y of Conjugate, [email or web address] 00:00:00 [facility] dical (Prevnar 20) Branch Zoster Vaccine 2022-04-22 Completed University of Recombinant 00:00:00 [facility] Pneumococcal 20 2022-04-22 Completed Universit y of Conjugate, [email or web address] 00:00:00 [facility] dical (Prevnar 20) Branch Zoster Vaccine 2022-04-22 Completed University of Recombinant 00:00:00 [facility] Pneumococcal 20 2022-04-22 Completed Universit y of Conjugate, [email or web address] 00:00:00 [facility] dical (Prevnar 20) Branch Zoster Vaccine 2022-04-22 Completed University of Recombinant 00:00:00 [facility] Pneumococcal 20 2022-04-22 Completed Universit y of Conjugate, [email or web address] 00:00:00 [facility] dical (Prevnar 20) Branch Zoster Vaccine 2022-04-22 Completed University of Recombinant 00:00:00 [facility] Pneumococcal 20 2022-04-22 Completed Universit y of Conjugate, [email or web address] 00:00:00 [facility] dical (Prevnar 20) Branch Zoster Vaccine 2022-04-22 Completed University of Recombinant 00:00:00 [facility] Pneumococcal 20 2022-04-22 Completed Universit y of Conjugate, [email or web address] 00:00:00 [facility] dical (Prevnar 20) Branch Zoster Vaccine 2022-04-22 Completed University of Recombinant 00:00:00 [facility] Pneumococcal 20 2022-04-22 Completed Universit y of Conjugate, [email or web address] 00:00:00 [facility] dical (Prevnar 20) Branch Zoster Vaccine 2022-04-22 Completed University of Recombinant 00:00:00 [facility] Pneumococcal 20 2022-04-22 Completed Universit y of Conjugate, [email or web address] 00:00:00 [facility] dical (Prevnar 20) Branch Zoster Vaccine 2022-04-22 Completed University of Recombinant 00:00:00 [facility] Pneumococcal 20 2022-04-22 Completed Universit y of Conjugate, [email or web address] 00:00:00 [facility] dical (Prevnar 20) Branch Zoster Vaccine 2022-04-22 Completed University of Recombinant 00:00:00 [facility] Pneumococcal 20 2022-04-22 Completed Universit y of Conjugate, [email or web address] 00:00:00 [facility] dical (Prevnar 20) Branch Zoster Vaccine 2022-04-22 Completed University of Recombinant 00:00:00 [facility] Pneumococcal 20 2022-04-22 Completed Universit y of Conjugate, [email or web address] 00:00:00 [facility] dical (Prevnar 20) Branch Zoster Vaccine 2022-04-22 Completed University of Recombinant 00:00:00 [facility] Pneumococcal 20 2022-04-22 Completed Universit y of Conjugate, [email or web address] 00:00:00 [facility] dical (Prevnar 20) Branch Zoster Vaccine 2022-04-22 Completed University of Recombinant 00:00:00 [facility] Pneumococcal 20 2022-04-22 Completed Universit y of Conjugate, [email or web address] 00:00:00 [facility] dical (Prevnar 20) Branch Zoster Vaccine 2022-04-22 Completed University of Recombinant 00:00:00 [facility] Pneumococcal 20 2022-04-22 Completed Universit y of Conjugate, [email or web address] 00:00:00 [place] [facility] dical (Prevnar 20) Branch Zoster Vaccine 2022-04-22 Completed University of Recombinant 00:00:00 [facility] Pneumococcal 20 2022-04-22 Completed Universit y of Conjugate, [email or web address] 00:00:00 [facility] dical (Prevnar 20) Branch Zoster Vaccine 2022-04-22 Completed University of Recombinant 00:00:00 [facility] Pneumococcal 20 2022-04-22 Completed Universit y of Conjugate, [email or web address] 00:00:00 [facility] dical (Prevnar 20) Branch Zoster Vaccine 2022-04-22 Completed University of Recombinant 00:00:00 [facility] Pneumococcal 20 2022-04-22 Completed Universit y of Conjugate, [email or web address] 00:00:00 [facility] dical (Prevnar 20) Branch Zoster Vaccine 2022-04-22 Completed University of Recombinant 00:00:00 [facility] Pneumococcal 20 2022-04-22 Completed Universit y of Conjugate, PCV20 00:00:00 [facility] dical (Prevnar 20) Branch Zoster Vaccine 2022-04-22 Completed University of Recombinant 00:00:00 [facility] Pneumococcal 20 2022-04-22 Completed Universit y of Conjugate, PCV20 00:00:00 [facility] dical (Prevnar 20) Branch Zoster Vaccine 2022-04-22 Completed University of Recombinant 00:00:00 [facility] Pneumococcal 20 2022-04-22 Completed Universit y of Conjugate, PCV20 00:00:00 [facility] dical (Prevnar 20) Branch Zoster Vaccine 2022-04-22 Completed University of Recombinant 00:00:00 [facility] Pneumococcal 20 2022-04-22 Completed Universit y of Conjugate, [email or web address] 00:00:00 [facility] dical (Prevnar 20) Branch Zoster Vaccine 2022-04-22 Completed University of Recombinant 00:00:00 [facility] Pneumococcal 20 2022-04-22 Completed Universit y of Conjugate, PCV20 00:00:00 [facility] dical (Prevnar 20) Branch Zoster Vaccine 2022-04-22 Completed University of Recombinant 00:00:00 [facility] Pneumococcal 20 2022-04-22 Completed Universit y of Conjugate, PCV20 00:00:00 [facility] dical (Prevnar 20) Branch Zoster Vaccine 2022-04-22 Completed University of Recombinant 00:00:00 [facility] Pneumococcal 20 2022-04-22 Completed Universit y of Conjugate, PCV20 00:00:00 [facility] dical (Prevnar 20) Branch Zoster Vaccine 2022-04-22 Completed University of Recombinant 00:00:00 [facility] Pneumococcal 20 2022-04-22 Completed Universit y of Conjugate, PCV20 00:00:00 [facility] dical (Prevnar 20) Branch Zoster Vaccine 2022-04-22 Completed University of Recombinant 00:00:00 [facility] Pneumococcal 20 2022-04-22 Completed Universit y of Conjugate, PCV20 00:00:00 [facility] dical (Prevnar 20) Branch Zoster Vaccine 2022-04-22 Completed University of Recombinant 00:00:00 [facility] Pneumococcal 20 2022-04-22 Completed Universit y of Conjugate, [email or web address] 00:00:00 [facility] dical (Prevnar 20) Branch Zoster Vaccine 2022-04-22 Completed University of Recombinant 00:00:00 [facility] Pneumococcal 20 2022-04-22 Completed Universit y of Conjugate, [email or web address] 00:00:00 [facility] dical (Prevnar 20) Branch Zoster Vaccine 2022-04-22 Completed University of Recombinant 00:00:00 [facility] Pneumococcal 20 2022-04-22 Completed Universit y of Conjugate, PCV20 00:00:00 [facility] dical (Prevnar 20) Branch Zoster Vaccine 2022-04-22 Completed University of Recombinant 00:00:00 [facility] Pneumococcal 20 2022-04-22 Completed Universit y of Conjugate, PCV20 00:00:00 [facility] dical (Prevnar 20) Branch Zoster Vaccine 2022-04-22 Completed University of Recombinant 00:00:00 [facility] Pneumococcal 20 2022-04-22 Completed Universit y of Conjugate, [email or web address] 00:00:00 [facility] dical (Prevnar 20) Branch Zoster Vaccine 2022-04-22 Completed University of Recombinant 00:00:00 [facility] Pneumococcal 20 2022-04-22 Completed Universit y of Conjugate, PCV20 00:00:00 [facility] dical (Prevnar 20) Branch Zoster Vaccine 2022-04-22 Completed University of Recombinant 00:00:00 [facility] Pneumococcal 20 2022-04-22 Completed Universit y of Conjugate, PCV20 00:00:00 [facility] dical (Prevnar 20) Branch Zoster Vaccine 2022-04-22 Completed University of Recombinant 00:00:00 [facility] Pneumococcal 20 2022-04-22 Completed Universit y of Conjugate, PCV20 00:00:00 [facility] dical (Prevnar 20) Branch Zoster Vaccine 2022-04-22 Completed University of Recombinant 00:00:00 [facility] Pneumococcal 20 2022-04-22 Completed Universit y of Conjugate, PCV20 00:00:00 [facility] dical (Prevnar 20) Branch Zoster Vaccine 2022-04-22 Completed University of Recombinant 00:00:00 [facility] Pneumococcal 20 2022-04-22 Completed Universit y of Conjugate, PCV20 00:00:00 [facility] dical (Prevnar 20) Branch Zoster Vaccine 2022-04-22 Completed University of Recombinant 00:00:00 [facility] Pneumococcal 20 2022-04-22 Completed Universit y of Conjugate, PCV20 00:00:00 [facility] dical (Prevnar 20) Branch Zoster Vaccine 2022-04-22 Completed University of Recombinant 00:00:00 [facility] Pneumococcal 20 2022-04-22 Completed Universit y of Conjugate, PCV20 00:00:00 [facility] dical (Prevnar 20) Branch Zoster Vaccine 2022-04-22 Completed University of Recombinant 00:00:00 [facility] Pneumococcal 20 2022-04-22 Completed Universit y of Conjugate, PCV20 00:00:00 [facility] dical (Prevnar 20) Branch Zoster Vaccine 2022-04-22 Completed University of Recombinant 00:00:00 [facility] Pneumococcal 20 2022-04-22 Completed Universit y of Conjugate, PCV20 00:00:00 [facility] dical (Prevnar 20) Branch Zoster Vaccine 2022-04-22 Completed University of Recombinant 00:00:00 [facility] Pneumococcal 20 2022-04-22 Completed Universit y of Conjugate, PCV20 00:00:00 [facility] dical (Prevnar 20) Branch Zoster Vaccine 2022-04-22 Completed University of Recombinant 00:00:00 [facility] Pneumococcal 20 2022-04-22 Completed Universit y of Conjugate, PCV20 00:00:00 [facility] dical (Prevnar 20) Branch Zoster Vaccine 2022-04-22 Completed University of Recombinant 00:00:00 [facility] Pneumococcal 20 2022-04-22 Completed Universit y of Conjugate, [email or web address] 00:00:00 [facility] dical (Prevnar 20) Branch Zoster Vaccine 2022-04-22 Completed University of Recombinant 00:00:00 [facility] Pneumococcal 20 2022-04-22 Completed Universit y of Conjugate, [email or web address] 00:00:00 [facility] dical (Prevnar 20) Branch Zoster Vaccine 2022-04-22 Completed University of Recombinant 00:00:00 [facility] Pneumococcal 20 2022-04-22 Completed Universit y of Conjugate, [email or web address] 00:00:00 [facility] dical (Prevnar 20) Branch Zoster Vaccine 2022-04-22 Completed [facility] of Recombinant 00:00:00 [facility] Pneumococcal 20 2022-04-22 Completed [facility] of Conjugate, PCV20 00:00:00 [facility] dical (Prevnar 20) Branch Zoster Vaccine 2022-04-22 Completed [facility] of Recombinant 00:00:00 [facility] Pneumococcal 20 2022-04-22 Completed [facility] of Conjugate, PCV20 00:00:00 [facility] dical (Prevnar 20) Branch Zoster Vaccine 2022-04-22 Completed [facility] Recombinant 00:00:00 [facility] Pneumococcal 20 2022-04-22 Completed [facility] y of Conjugate, PCV20 00:00:00 [facility] dical (Prevnar 20) Branch Zoster Vaccine 2022-04-22 Completed [facility] Recombinant 00:00:00 [facility] Pneumococcal 20 2022-04-22 Completed [facility] y of Conjugate, PCV20 00:00:00 [facility] dical (Prevnar 20) Branch Zoster Vaccine 2022-04-22 Completed [facility] Recombinant 00:00:00 [facility] Pneumococcal 20 2022-04-22 Completed [facility] y of Conjugate, PCV20 00:00:00 [facility] dical (Prevnar 20) Branch Zoster Vaccine 2022-04-22 Completed [facility] of Recombinant 00:00:00 [facility] Pneumococcal 20 2022-04-22 Completed [facility] y of Conjugate, PCV20 00:00:00 [facility] dical (Prevnar 20) Branch Zoster Vaccine 2022-04-22 Completed [facility] of Recombinant 00:00:00 [facility] Pneumococcal 20 2022-04-22 Completed [facility] y of Conjugate, PCV20 00:00:00 [facility] dical (Prevnar 20) Branch Zoster Vaccine 2022-04-22 Completed [facility] of Recombinant 00:00:00 [facility] Pneumococcal 20 2022-04-22 Completed [facility] y of Conjugate, PCV20 00:00:00 [facility] dical (Prevnar 20) Branch Zoster Vaccine 2022-04-22 Completed [facility] Recombinant 00:00:00 [facility] Pneumococcal 20 2022-04-22 Completed [facility] y of Conjugate, PCV20 00:00:00 [facility] dical (Prevnar 20) Branch Zoster Vaccine 2022-04-22 Completed [facility] Recombinant 00:00:00 [facility] Pneumococcal 20 2022-04-22 Completed [facility] y of Conjugate, PCV20 00:00:00 [facility] dical (Prevnar 20) Branch Zoster Vaccine 2022-04-22 Completed [facility] of Recombinant 00:00:00 [facility] Pneumococcal 20 2022-04-22 Completed [facility] of Conjugate, PCV20 00:00:00 [facility] dical (Prevnar 20) Branch Zoster Vaccine 2022-04-22 Completed [facility] Recombinant 00:00:00 [facility] Pneumococcal 20 2022-04-22 Completed [facility] of Conjugate, PCV20 00:00:00 [facility] dical (Prevnar 20) Branch Zoster Vaccine 2022-04-22 Completed [facility] Recombinant 00:00:00 [facility] Pneumococcal 20 2022-04-22 Completed [facility] y of Conjugate, PCV20 00:00:00 [facility] dical (Prevnar 20) Branch Zoster Vaccine 2022-04-22 Completed [facility] of Recombinant 00:00:00 [facility] Pneumococcal 20 2022-04-22 Completed [facility] y of Conjugate, PCV20 00:00:00 [facility] dical (Prevnar 20) Branch Zoster Vaccine 2022-04-22 Completed [facility] Recombinant 00:00:00 [facility] Pneumococcal 20 2022-04-22 Completed [facility] y of Conjugate, PCV20 00:00:00 [facility] dical (Prevnar 20) Branch Zoster Vaccine 2022-04-22 Completed [facility] of Recombinant 00:00:00 [facility] Pneumococcal 20 2022-04-22 Completed [facility] y of Conjugate, PCV20 00:00:00 [facility] dical (Prevnar 20) Branch Zoster Vaccine 2022-04-22 Completed [facility] of Recombinant 00:00:00 [facility] Pneumococcal 20 2022-04-22 Completed [facility] y of Conjugate, PCV20 00:00:00 [facility] dical (Prevnar 20) Branch Zoster Vaccine 2022-04-22 Completed [facility] 00:00:00 [facility] Influenza Virus 2022-02-02 Completed [facility] y of [...] [facility]it y of Vaccine Quad IM, 00:00:00 [facility] Preserv and ABX Branch Free 6 MO-64 YRS Influenza Virus 2022-02-02 Completed [facility] y of Vaccine Quad IM, 00:00:00 [facility] Preserv and ABX Branch Free 6 MO-64 YRS Influenza Virus 2022-02-02 Completed [facility] y of Vaccine Quad IM, 00:00:00 [facility] Preserv and ABX Branch Free 6 MO-64 YRS Influenza Virus 2022-02-02 Completed [facility] y of Vaccine Quad IM, 00:00:00 [facility] Preserv and ABX Branch Free 6 MO-64 YRS Influenza Virus 2022-02-02 Completed [facility] y of Vaccine Quad IM, 00:00:00 [facility] Preserv and ABX Branch Free 6 MO-64 YRS Influenza Virus 2021-04-12 Completed [facility] y of Vaccine 00:00:00 [facility] Influenza Virus 2021-04-12 Completed [facility] y of Vaccine 00:00:00 [facility] Influenza Virus 2021-04-12 Completed [facility] y of Vaccine 00:00:00 [facility] Influenza Virus 2021-04-12 Completed [facility] y of Vaccine 00:00:00 [facility] Influenza Virus 2021-04-12 Completed [facility] y of Vaccine 00:00:00 [facility] Influenza Virus 2021-04-12 Completed [facility] Vaccine 00:00:00 [facility] Influenza Virus 2021-04-12 Completed [facility] y of Vaccine 00:00:00 [facility] Influenza Virus 2021-04-12 Completed [facility] y of Vaccine 00:00:00 [facility] Influenza Virus 2021-04-12 Completed [facility] y of Vaccine 00:00:00 [facility] Influenza Virus 2021-04-12 Completed [facility] y of Vaccine 00:00:00 [facility] Influenza Virus 2021-04-12 Completed [facility] y of Vaccine 00:00:00 [facility] Influenza Virus 2021-04-12 Completed [facility] y of Vaccine 00:00:00 [facility] Influenza Virus 2021-04-12 Completed [facility] y of Vaccine 00:00:00 [facility] Influenza Virus 2021-04-12 Completed [facility] y of Vaccine 00:00:00 [facility] Influenza Virus 2021-04-12 Completed [facility] of Vaccine 00:00:00 [facility] Influenza Virus 2021-04-12 Completed [facility] y of Vaccine 00:00:00 [facility] Influenza Virus 2021-04-12 Completed [facility] y of Vaccine 00:00:00 [facility] Influenza Virus 2021-04-12 Completed [facility] y of Vaccine 00:00:00 [facility] Influenza Virus 2021-04-12 Completed [facility] of Vaccine 00:00:00 [facility] Influenza Virus 2021-04-12 Completed [facility] y of Vaccine 00:00:00 [facility] Influenza Virus 2021-04-12 Completed [facility] y of Vaccine 00:00:00 [facility] Influenza Virus 2021-04-12 Completed [facility] y of Vaccine 00:00:00 [facility] Influenza Virus 2021-04-12 Completed [facility] y of Vaccine 00:00:00 [facility] Influenza Virus 2021-04-12 Completed [facility] y of Vaccine 00:00:00 [facility] Influenza Virus 2021-04-12 Completed [facility] y of Vaccine 00:00:00 [facility] Influenza Virus 2021-04-12 Completed [facility] y of Vaccine 00:00:00 [facility] Influenza Virus 2021-04-12 Completed [facility] y of Vaccine 00:00:00 [facility] Influenza Virus 2021-04-12 Completed [facility] y of Vaccine 00:00:00 [facility] Influenza Virus 2021-04-12 Completed [facility] y of Vaccine 00:00:00 [facility] Influenza Virus 2021-04-12 Completed [facility] y of Vaccine 00:00:00 [facility] Influenza Virus 2021-04-12 Completed [facility] y of Vaccine 00:00:00 [facility] Influenza Virus 2021-04-12 Completed [facility] y of Vaccine 00:00:00 [facility] Influenza Virus 2021-04-12 Completed [facility] y of Vaccine 00:00:00 [facility] Influenza Virus 2021-04-12 Completed [facility] y of Vaccine 00:00:00 [facility] Influenza Virus 2021-04-12 Completed [facility] y of Vaccine 00:00:00 [facility] Influenza Virus 2021-04-12 Completed [facility] y of Vaccine 00:00:00 [facility] Influenza Virus 2021-04-12 Completed [facility] y of Vaccine 00:00:00 [facility] Influenza Virus 2021-04-12 Completed [facility] y of Vaccine 00:00:00 [facility] Influenza Virus 2021-04-12 Completed [facility] y of Vaccine 00:00:00 [facility] Influenza Virus 2021-04-12 Completed [facility] y of Vaccine 00:00:00 [facility] Influenza Virus 2021-04-12 Completed [facility] y of Vaccine 00:00:00 [facility] Influenza Virus 2021-04-12 Completed [facility] y of Vaccine 00:00:00 [facility] Influenza Virus 2021-04-12 Completed [facility] y of Vaccine 00:00:00 [facility] Influenza Virus 2021-04-12 Completed [facility] y of Vaccine 00:00:00 [facility] Influenza Virus 2021-04-12 Completed [facility] y of Vaccine 00:00:00 [facility] Influenza Virus 2021-04-12 Completed [facility] y of Vaccine 00:00:00 [facility] Influenza Virus 2021-04-12 Completed [facility] y of Vaccine 00:00:00 [facility] Influenza Virus 2021-04-12 Completed [facility] y of Vaccine 00:00:00 [facility] Influenza Virus 2021-04-12 Completed [facility] y of Vaccine 00:00:00 [facility] Influenza Virus 2021-04-12 Completed [facility] y of Vaccine 00:00:00 [facility] Influenza Virus 2021-04-12 Completed [facility] y of Vaccine 00:00:00 [facility] Influenza Virus 2021-04-12 Completed [facility] y of Vaccine 00:00:00 [facility] Influenza Virus 2021-04-12 Completed [facility] y of Vaccine 00:00:00 [facility] Influenza Virus 2021-04-12 Completed [facility] y of Vaccine 00:00:00 [facility] Influenza Virus 2021-04-12 Completed [facility] y of Vaccine 00:00:00 [facility] Influenza Virus 2021-04-12 Completed [facility] y of Vaccine 00:00:00 [facility] Influenza Virus 2021-04-12 Completed [facility] y of Vaccine 00:00:00 [facility] Influenza Virus 2021-04-12 Completed [facility] y of Vaccine 00:00:00 [facility] Influenza Virus 2021-04-12 Completed [facility] y of Vaccine 00:00:00 [facility] Influenza Virus 2021-04-12 Completed [facility] y of Vaccine 00:00:00 [facility] Influenza Virus 2021-04-12 Completed [facility] y of Vaccine 00:00:00 [facility] Influenza Virus 2021-04-12 Completed [facility] y of Vaccine 00:00:00 [facility] Influenza Virus 2021-04-12 Completed [facility] y of Vaccine 00:00:00 [facility] Influenza Virus 2021-04-12 Completed [facility] y of Vaccine 00:00:00 [facility] Influenza Virus 2021-04-12 Completed [facility] y of Vaccine 00:00:00 [facility] Influenza Virus 2021-04-12 Completed [facility] y of Vaccine 00:00:00 [facility] Influenza Virus 2021-04-12 Completed [facility] y of Vaccine 00:00:00 [facility] Influenza Virus 2021-04-12 Completed [facility] y of Vaccine 00:00:00 [facility] Influenza Virus 2021-04-12 Completed [facility] y of Vaccine 00:00:00 [facility] Influenza Virus 2021-04-12 Completed [facility] y of Vaccine 00:00:00 [facility] Influenza Virus 2021-04-12 Completed [facility] y of Vaccine 00:00:00 [facility] Influenza Virus 2021-04-12 Completed [facility] y of Vaccine 00:00:00 [facility] Influenza Virus 2021-04-12 Completed [facility] y of Vaccine 00:00:00 [facility] Influenza Virus 2021-04-12 Completed [facility] y of Vaccine 00:00:00 [facility] Influenza Virus 2021-04-12 Completed [facility] y of Vaccine 00:00:00 [facility] Influenza Virus 2021-04-12 Completed [facility] y of Vaccine 00:00:00 [facility] Influenza Virus 2021-04-12 Completed [facility] y of Vaccine 00:00:00 [facility] Branch Influenza Virus 2021-04-12 Completed [facility] y of Vaccine 00:00:00 [facility] Influenza Virus 2021-04-12 Completed [facility] y of Vaccine 00:00:00 [facility] Influenza Virus 2021-04-12 Completed [facility] y of Vaccine 00:00:00 [facility] Influenza Virus 2021-04-12 Completed [facility] y of Vaccine 00:00:00 [facility] Influenza Virus 2021-04-12 Completed [facility] y of Vaccine 00:00:00 [facility] Influenza Virus 2021-04-12 Completed [facility] y of Vaccine 00:00:00 [facility] Influenza Virus 2021-04-12 Completed [facility] y of Vaccine 00:00:00 [facility] Influenza Virus 2021-04-12 Completed [facility] y of Vaccine 00:00:00 [facility] Influenza Virus 2021-04-12 Completed [facility] y of Vaccine 00:00:00 [facility] Influenza Virus 2021-04-12 Completed [facility] y of Vaccine 00:00:00 [facility] Influenza Virus 2021-04-12 Completed [facility] y of Vaccine 00:00:00 [facility] Branch Influenza Virus 2021-04-12 Completed [facility] y of Vaccine 00:00:00 [facility] Influenza Virus 2021-04-12 Completed [facility] y of Vaccine 00:00:00 [facility] Influenza Virus 2021-04-12 Completed [facility] y of Vaccine 00:00:00 [facility] Influenza Virus 2021-04-12 Completed [facility] y of Vaccine 00:00:00 [facility] Influenza Virus 2021-04-12 Completed [facility] y of Vaccine 00:00:00 [facility] Influenza Virus 2021-04-12 Completed [facility] y of Vaccine 00:00:00 [facility] Branch Influenza Virus 2021-04-12 Completed [facility] y of Vaccine 00:00:00 [facility] Influenza Virus 2021-04-12 Completed [facility] y of Vaccine 00:00:00 [facility] Influenza Virus 2021-04-12 Completed [facility] y of Vaccine 00:00:00 [facility] Influenza Virus 2021-04-12 Completed [facility] y of Vaccine 00:00:00 [facility] Influenza Virus 2019-04-22 Completed [facility] y of Vaccine Quad .5 mL 00:00:00 [facility] 6+ MO Branch Influenza Virus 2019-04-22 Completed [facility] y of Vaccine Quad .5 mL 00:00:00 [facility] 6+ MO Branch Influenza Virus 2019-04-22 Completed [facility] y of Vaccine Quad .5 mL 00:00:00 [facility] 6+ MO Branch Influenza Virus 2019-04-22 Completed [facility] y of Vaccine Quad .5 mL 00:00:00 [facility] 6+ MO Branch Influenza Virus 2019-04-22 Completed [facility] y of Vaccine Quad .5 mL 00:00:00 [facility] 6+ MO Branch Influenza Virus 2019-04-22 Completed [facility] y of Vaccine Quad .5 mL 00:00:00 [facility] 6+ MO Branch Influenza Virus 2019-04-22 Completed [facility] y of Vaccine Quad .5 mL 00:00:00 [facility] 6+ MO Branch Influenza Virus 2019-04-22 Completed [facility] y of Vaccine Quad .5 mL 00:00:00 [facility] 6+ MO Branch Influenza Virus 2019-04-22 Completed [facility] y of Vaccine Quad .5 mL 00:00:00 [facility] 6+ MO Branch Influenza Virus 2019-04-22 Completed [facility] y of Vaccine Quad .5 mL 00:00:00 [facility] 6+ MO Branch Influenza Virus 2019-04-22 Completed [facility] y of Vaccine Quad .5 mL 00:00:00 [facility] 6+ MO [facility] Influenza Virus 2019-04-22 Completed [facility] y of Vaccine Quad .5 mL 00:00:00 [facility] 6+ MO Branch Influenza Virus [...] y of Vaccine Quad .5 mL 00:00:00 [facility] 6+ MO Branch TDAP 2013-06-09 Completed [facility] of 00:00:00 [facility] TDAP 2013-06-09 Completed [facility] of 00:00:00 [facility] TDAP 2013-06-09 Completed [facility] of 00:00:00 [facility] TDAP 2013-06-09 Completed [facility] of 00:00:00 [facility] TDAP 2013-06-09 Completed [facility] of 00:00:00 [facility] TDAP 2013-06-09 Completed [facility] of 00:00:00 [facility] TDAP 2013-06-09 Completed [facility] of 00:00:00 [facility] TDAP 2013-06-09 Completed [facility] 00:00:00 [facility] TDAP 2013-06-09 Completed [facility] of 00:00:00 [facility] TDAP 2013-06-09 Completed [facility] 00:00:00 [facility] TDAP 2013-06-09 Completed [facility] 00:00:00 [facility] TDAP 2013-06-09 Completed [facility] 00:00:00 [facility] TDAP 2013-06-09 Completed [facility] of 00:00:00 [facility] TDAP 2013-06-09 Completed [facility] 00:00:00 [facility] TDAP 2013-06-09 Completed [facility] 00:00:00 [facility] TDAP 2013-06-09 Completed [facility] 00:00:00 [facility] TDAP 2013-06-09 Completed [facility] 00:00:00 [facility] TDAP 2013-06-09 Completed [facility] 00:00:00 [facility] TDAP 2013-06-09 Completed [facility] of 00:00:00 [facility] TDAP 2013-06-09 Completed [facility] of 00:00:00 [facility] TDAP 2013-06-09 Completed [facility] of 00:00:00 [facility] TDAP 2013-06-09 Completed [facility] of 00:00:00 [facility] TDAP 2013-06-09 Completed [facility] of 00:00:00 [facility] TDAP 2013-06-09 Completed [facility] of 00:00:00 [facility] TDAP 2013-06-09 Completed [facility] of 00:00:00 [facility] TDAP 2013-06-09 Completed [facility] of 00:00:00 [facility] TDAP 2013-06-09 Completed [facility] 00:00:00 [facility] TDAP 2013-06-09 Completed [facility] 00:00:00 [facility] TDAP 2013-06-09 Completed [facility] 00:00:00 [facility] TDAP 2013-06-09 Completed [facility] 00:00:00 [facility] TDAP 2013-06-09 Completed [facility] 00:00:00 [facility] TDAP 2013-06-09 Completed [facility] 00:00:00 [facility] TDAP 2013-06-09 Completed [facility] 00:00:00 [facility] TDAP 2013-06-09 Completed [facility] 00:00:00 [facility] TDAP 2013-06-09 Completed [facility] 00:00:00 [facility] TDAP 2013-06-09 Completed [facility] 00:00:00 [facility] TDAP 2013-06-09 Completed [facility] of 00:00:00 [facility] TDAP 2013-06-09 Completed [facility] 00:00:00 [facility] TDAP 2013-06-09 Completed [facility] 00:00:00 [facility] TDAP 2013-06-09 Completed [facility] of 00:00:00 [facility] TDAP 2013-06-09 Completed [facility] of 00:00:00 [facility] TDAP 2013-06-09 Completed [facility] 00:00:00 [facility] TDAP 2013-06-09 Completed [facility] 00:00:00 [facility] TDAP 2013-06-09 Completed [facility] of 00:00:00 [facility] TDAP 2013-06-09 Completed [facility] of 00:00:00 [facility] TDAP 2013-06-09 Completed [facility] of 00:00:00 [facility] TDAP 2013-06-09 Completed [facility] 00:00:00 [facility] TDAP 2013-06-09 Completed [facility] of 00:00:00 [facility] TDAP 2013-06-09 Completed [facility] of 00:00:00 [facility] TDAP 2013-06-09 Completed [facility] of 00:00:00 [facility] TDAP 2013-06-09 Completed [facility] 00:00:00 [facility] TDAP 2013-06-09 Completed [facility] 00:00:00 [facility] TDAP 2013-06-09 Completed [facility] of 00:00:00 [facility] TDAP 2013-06-09 Completed [facility] of 00:00:00 [facility] TDAP 2013-06-09 Completed [facility] of 00:00:00 [facility] TDAP 2013-06-09 Completed [facility] of 00:00:00 [facility] TDAP 2013-06-09 Completed [facility] of 00:00:00 [facility] TDAP 2013-06-09 Completed [facility] 00:00:00 [facility] TDAP 2013-06-09 Completed [facility] 00:00:00 [facility] TDAP 2013-06-09 Completed [facility] 00:00:00 [facility] TDAP 2013-06-09 Completed [facility] 00:00:00 [facility] TDAP 2013-06-09 Completed [facility] 00:00:00 [facility] TDAP 2013-06-09 Completed [facility] of 00:00:00 [facility] TDAP 2013-06-09 Completed [facility] 00:00:00 [facility] TDAP 2013-06-09 Completed [facility] 00:00:00 [facility] TDAP 2013-06-09 Completed [facility] 00:00:00 [facility] TDAP 2013-06-09 Completed [facility] 00:00:00 [facility] TDAP 2013-06-09 Completed [facility] 00:00:00 [facility] TDAP 2013-06-09 Completed [facility] 00:00:00 [facility] TDAP 2013-06-09 Completed [facility] 00:00:00 [facility] TDAP 2013-06-09 Completed [facility] 00:00:00 [facility] TDAP 2013-06-09 Completed [facility] 00:00:00 [facility] TDAP 2013-06-09 Completed [facility] of 00:00:00 [facility] TDAP 2013-06-09 Completed [facility] 00:00:00 [facility] TDAP 2013-06-09 Completed [facility] of 00:00:00 [facility] TDAP 2013-06-09 Completed [facility] of 00:00:00 [facility] TDAP 2013-06-09 Completed [facility] 00:00:00 [facility] TDAP 2013-06-09 Completed [facility] of 00:00:00 [facility] TDAP 2013-06-09 Completed [facility] of 00:00:00 [facility] TDAP 2013-06-09 Completed [facility] of 00:00:00 [facility] TDAP 2013-06-09 Completed [facility] of 00:00:00 [facility] TDAP 2013-06-09 Completed [facility] 00:00:00 [facility] TDAP 2013-06-09 Completed [facility] 00:00:00 [facility] TDAP 2013-06-09 Completed [facility] 00:00:00 [facility] TDAP 2013-06-09 Completed [facility] 00:00:00 [facility] TDAP 2013-06-09 Completed [facility] 00:00:00 [facility] TDAP 2013-06-09 Completed [facility] 00:00:00 [facility] TDAP 2013-06-09 Completed [facility] 00:00:00 [facility] TDAP 2013-06-09 Completed [facility] 00:00:00 [facility] TDAP 2013-06-09 Completed [facility] 00:00:00 [facility] TDAP 2013-06-09 Completed [facility] 00:00:00 [facility] TDAP 2013-06-09 Completed [facility] 00:00:00 [facility] TDAP 2013-06-09 Completed [facility] 00:00:00 [facility] TDAP 2013-06-09 Completed [facility] 00:00:00 [facility] TDAP 2013-06-09 Completed [facility] 00:00:00 [facility] TDAP 2013-06-09 Completed [facility] 00:00:00 [facility] TDAP 2013-06-09 Completed [facility] 00:00:00 [facility] TDAP 2013-06-09 Completed [facility] 00:00:00 [facility] Vital Signs Vital Name Observation Time Observation Value Comments Source Systolic blood 2023-01-02 18:35:00 139 mm[Hg] Univer sity of pressure [facility] Diastolic blood 2023-01-02 18:35:00 82 mm[Hg] Unive rsity of pressure [facility] Heart rate 2023-01-02 18:22:00 67 /min Universi ty of [facility] Body temperature 2023-01-02 18:22:00 36.06 Araseli Univ ersity of [facility] Body height 2023-01-02 18:22:00 167.6 cm [facility] Body weight 2023-01-02 18:22:00 108.818 kg Universi ty of [facility] BMI 2023-01-02 18:22:00 38.72 kg/m2 Universi ty of [facility] Oxygen saturation in 2023-01-02 18:22:00 94 /min University Arterial blood by [facility] Systolic blood 2022-11-28 16:44:00 119 mm[Hg] Univer sity of pressure [facility] Diastolic blood 2022-11-28 16:44:00 67 mm[Hg] Unive rsity of pressure [facility] Heart rate 2022-11-28 16:44:00 72 /min Universi ty of [facility] Body height 2022-11-28 16:44:00 167.6 cm [facility] Body weight 2022-11-28 16:44:00 104.327 kg [facility] BMI 2022-11-28 16:44:00 37.12 kg/m2 Universi ty of [facility] Oxygen saturation in 2022-11-28 16:44:00 94 /min University of Arterial blood by [facility] HEIGHT 2022-11-21 14:10:00 167.6 cm WEIGHT 2022-11-21 14:10:00 106.142 kg HEIGHT 2022-11-21 14:10:00 167.6 cm WEIGHT 2022-11-21 14:10:00 106.142 kg HEIGHT 2022-11-21 14:10:00 167.6 cm WEIGHT 2022-11-21 14:10:00 106.142 kg Systolic blood 2022-10-28 22:10:00 158 mm[Hg] [facility] Diastolic blood 2022-10-28 22:10:00 90 mm[Hg] [facility] Heart rate 2022-10-28 22:10:00 105 /min [facility] Oxygen saturation in 2022-10-28 22:10:00 96 /min University of Arterial blood by [facility] Respiratory rate 2022-10-28 21:05:00 30 /min [facility] Body temperature 2022-10-28 15:29:00 36.72 Araseli [facility] Body weight 2022-10-28 15:29:00 111.585 kg [facility] BMI 2022-10-28 15:29:00 39.71 kg/m2 [facility] Systolic blood 2022-04-03 19:51:00 134 mm[Hg] [facility] Diastolic blood 2022-04-03 19:51:00 86 mm[Hg] [facility]ive [facility] Heart rate 2022-04-03 19:51:00 83 /min [facility] Oxygen saturation in 2022-04-03 19:51:00 97 /min University of Arterial blood by [facility] Body temperature 2022-04-03 19:48:00 36.72 Araseli [facility] Respiratory rate 2022-04-03 19:48:00 17 /min [facility] Body weight 2022-04-03 19:48:00 111.63 kg [facility] BMI 2022-04-03 19:48:00 39.72 kg/m2 Universi ty [facility] Systolic blood 2022-02-02 20:20:00 138 mm[Hg] Univer sity of pressure [facility] Diastolic blood 2022-02-02 20:20:00 90 mm[Hg] Unive rsity of pressure [facility] Heart rate 2022-02-02 20:19:00 78 /min Universi [facility] Body height 2022-02-02 20:19:00 167.6 cm Universi [facility] Body weight 2022-02-02 20:19:00 104.736 kg Universi [facility] BMI 2022-02-02 20:19:00 37.27 kg/m2 [facility] Oxygen saturation in 2022-02-02 20:19:00 99 /min [facility] Arterial blood by [facility] Systolic blood 2022-11-25 07:05:00 126 mm[Hg] [facility] Diastolic blood 2022-11-25 07:05:00 69 mm[Hg] [facility] Heart rate 2022-11-25 07:05:00 54 /min [facility] Body temperature 2022-11-25 07:05:00 36.28 Araseli [facility] Respiratory rate 2022-11-25 07:05:00 17 /min [facility] Oxygen saturation in 2022-11-25 07:05:00 98 /min [facility] Arterial blood by Medical nter Pulse oximetry Body height 2022-11-21 14:10:00 167.6 cm [facility] Body weight 2022-11-21 14:10:00 106.142 kg [facility] BMI 2022-11-21 14:10:00 37.77 kg/m2 [facility] Procedures Procedure Date / Time Performing Clinician Source Performed EXTERNAL PROVIDER RECORDS 2022-12-25 05:01:00 Doctor Unassigned, [facility] Name [facility] EXTERNAL PROVIDER RECORDS 2022-12-10 05:01:00 Doctor Unassigned, [facility] Name [facility] POCT-GLUCOSE METER 2022-11-25 08:14:00 Med[facility] CBC W/PLT COUNT & AUTO 2022-11-25 05:47:00 TonoRobert [facility] BASIC METABOLIC PANEL 2022-11-25 05:47:00 Tono Robert [facility] PHOSPHORUS 2022-11-25 05:47:00 Tono Robert [facility] MAGNESIUM 2022-11-25 05:47:00 TonoRobert [facility] CBC W/PLT COUNT & AUTO 2022-11-25 05:47:00 [facility] 2022-11-24 22:54:38 Unknown, [facility] ECG 12-LEAD 2022-11-24 22:54:38 Posthenok [facility] ECG 12-LEAD 2022-11-24 22:54:38 Unknown, [facility] POCT-GLUCOSE METER 2022-11-24 22:12:00 [facility] BASIC METABOLIC PANEL 2022-11-24 18:58:00 Robert Power [facility] HIGH SENSITIVITY TROPONIN 2022-11-24 18:58:00 Bebeto [facility] CBC W/PLT COUNT & AUTO 2022-11-24 18:58:00 Bebeto [facility] MAGNESIUM 2022-11-24 18:58:00 Bebeto [facility] PHOSPHORUS 2022-11-24 18:58:00 Bebeto [facility] CBC W/PLT COUNT & AUTO 2022-11-24 18:58:00 Bebeto [facility] CT BRAIN WITHOUT IV 2022-11-24 18:45:00 Bebeto [facility] POCT-GLUCOSE METER 2022-11-24 17:05:00 [facility] POCT-GLUCOSE METER 2022-11-24 12:37:00 [facility] POCT-GLUCOSE METER 2022-11-24 08:23:00 [facility] CBC W/PLT COUNT & AUTO 2022-11-24 04:18:00 Tono [facility] BASIC METABOLIC PANEL 2022-11-24 04:18:00 Robert Power [facility] PHOSPHORUS 2022-11-24 04:18:00 Tono [facility] MAGNESIUM 2022-11-24 04:18:00 Tono [facility] CBC W/PLT COUNT & AUTO 2022-11-24 04:18:00 Tono [facility] POCT-GLUCOSE METER 2022-11-23 21:50:00 [facility] EEG AWAKE AND DROWSY 2022-11-23 19:00:13 Leyla Cha [facility] POCT-GLUCOSE METER 2022-11-23 17:59:00 [facility] CAROTID DOPPLER BILATERAL 2022-11-23 14:00:00 Kevin Pang [facility] POCT-GLUCOSE METER 2022-11-23 12:59:00 [facility] POCT-GLUCOSE METER 2022-11-23 08:11:00 [facility] CBC W/PLT COUNT & AUTO 2022-11-23 04:08:00 Tono [facility] PHOSPHORUS 2022-11-23 04:08:00 Tono [facility] MAGNESIUM 2022-11-23 04:08:00 Tono [facility] CBC W/PLT COUNT & AUTO 2022-11-23 04:08:00 Robert Power [facility] POCT-GLUCOSE METER 2022-11-22 20:57:00 Mariangel Luciano [facility] POCT-GLUCOSE METER 2022-11-22 17:34:00 [facility] 2022-11-22 11:21:00 [facility] IV 2022-11-22 09:30:00 Paxton Tovar [facility] POCT-GLUCOSE METER 2022-11-22 08:02:00 Belle Cates [facility] CBC W/PLT COUNT & AUTO 2022-11-22 03:05:00 Robert Power [facility] BASIC METABOLIC PANEL 2022-11-22 03:05:00 Robert Power [facility] PHOSPHORUS 2022-11-22 03:05:00 Robert Power [facility] MAGNESIUM 2022-11-22 03:05:00 Robert Power [facility] CBC W/PLT COUNT & AUTO 2022-11-22 03:05:00 Robert Power [facility] CT BRAIN WITHOUT IV 2022-11-21 22:44:31 Marilee Betancourt [facility] EEG AWAKE AND DROWSY 2022-11-21 20:01:05 Kevin Pang [facility] W/PLT COUNT & AUTO 2022-11-21 16:54:00 Robert Power [facility] HIGH SENSITIVITY TROPONIN 2022-11-21 16:54:00 Henry Power [facility] HEMOGLOBIN A1C 2022-11-21 16:54:00 Robert Power [facility] TSH/FREE T4 IF INDICATED 2022-11-21 16:54:00 Damon Power [facility] VITAMIN B12 2022-11-21 16:54:00 Robret Power [facility] METHYLMALONIC ACID 2022-11-21 16:54:00 Robert Power [facility] HC LAB HIV-1 AG W/HIV-1&2 2022-11-21 16:54:00 Henry Power [facility] AB [facility] RPR 2022-11-21 16:54:00 Robert Power [facility] CBC W/PLT COUNT & AUTO 2022-11-21 16:54:00 Robert Power [facility] [place] INSERT 2022-11-21 16:28:15 Kevin Pang [facility] CATH,ART,PERCUT,SHORTTERM [facility] ECG 12-LEAD 2022-11-21 16:05:42 Unknown, 7 [facility] ECG 12-LEAD 2022-11-21 16:05:42 Unknown, 7 [facility] ECG 12-LEAD 2022-11-21 16:04:59 Unknown, 7 [facility] ECG 12-LEAD 2022-11-21 16:04:59 LongDino [facility] ECG 12-LEAD 2022-11-21 16:04:59 Unknown, [address] CREATINE KINASE (CK) 2022-11-21 15:19:00 Robert Power [facility] COMPREHENSIVE METABOLIC 2022-11-21 15:19:[address] [facility] PHOSPHORUS 2022-11-21 15:19:00 Robert Power [facility] MAGNESIUM 2022-11-21 15:19:00 Robert Power [facility] PROTHROMBIN TIME/INR 2022-11-21 15:19:00 Robert Power [facility] APTT 2022-11-21 15:19:00 Tono Robert [facility] LIPID PANEL 2022-11-21 15:19:00 Robert Power [facility] C-REACTIVE PROTEIN 2022-11-21 15:19:00 Robert Power [facility] POCT-GLUCOSE METER 2022-11-21 14:42:00 Cates, [place] GALVIN [facility] EKG-SCANNED 2022-11-21 00:00:00 ProviderAllie [facility] US TESTICULAR TORSION 2022-10-28 18:10:00 Candida Paul [facility] BASIC METABOLIC PANEL 2022-10-28 15:47:00 Candida Paul [facility] (NA, K, CL, CO2, GLUCOSE, Medica l Branch BUN, CREATININE, CA) CBC WITH DIFF 2022-10-28 15:47:00 Humberto [facility] URINALYSIS 2022-10-28 15:47:00 Humberto [facility] CONSENT/REFUSAL FOR 2022-10-28 15:25:48 Doctor Chadwick, [facility] DIAGNOSIS AND TREATMENT [facility] EXTERNAL PROVIDER - ADC 2022-05-03 06:01:00 Doctor Chadwick [facility] CARDIOLOGY [facility] AUTHORIZATION TO RELEASE 2022-04-03 06:01:00 Doctor Genao [facility] PHI TO [facility] Name Medical Branch US ABDOMEN COMPLETE 2022-02-13 18:24:56 Blessing Yanes [facility] FLU VACC ([id number]), 6 2022-02-02 20:37:25 Blessing Yanes [facility] MO-64 YRS, .5ML, IM, QUAD Medica l Branch (FLUCELVAX) MEDICATION CORRESPONDENCE 2022-01-19 05:01:00 Doctor Chadwick [facility] DME/SUPPLY JUSTIFICATION 2021-12-25 05:01:00 Doctor Chadwick [facility] Spine lumbar myelogram 2017-05-30 00:00:00 [place] [facility] [id number] Plan of Care Planned Activity Planned Date Details Comments Source Future Scheduled 2025-11-21 Lipid panel (procedure) [facility] 00:00:00 [code = 59603518] Medical Ce nter Future Scheduled 2025-11-21 Lipid panel (procedure) [facility] 00:00:00 [code = 64026063] Medical Ce nter Future Scheduled 2025-11-21 Lipid panel (procedure) [facility] 00:00:00 [code = 96770927] Medical Ce nter Future Scheduled 2023-06-09 DTAP/TDAP/TD [...] (#1)] Future Scheduled 2022-12-20 [facility] 21:45:19 neoplasm of colon Hospital (procedure) [code = 821738428] Future Scheduled 2022-12-20 Screening for [facility] 21:45:19 neoplasm of colon Hospital (procedure) [code = 766535795] Future Scheduled 2022-12-20 Screening for [facility] 21:45:19 neoplasm of colon Hospital (procedure) [code = 016796758] Future Scheduled 2022-12-20 COVID-19 [facility]ACCINE (#1) [facility] 21[facility] [code = COVID-19 VACCINE Hos pital (#1)] Future Scheduled 2022-12-20 Screening for malignant [facility] 21:45:19 neoplasm of colon Hospital (procedure) [code = 228630201] Future Scheduled 2022-12-20 Screening for [facility] 21:45:19 neoplasm of colon Hospital (procedure) [code = 512779975] Future Scheduled 2022-12-20 SHINGLES VACCINES (1 of [facility] 21:45:19 2) [code = SHINGLES Hospital VACCINES (1 of 2)] Future Scheduled 2022-12-20 ZZZ INFLUENZA VACCINE [facility] 21:45:19 [code = ZZZ INFLUENZA Hospit al VACCINE] Future Scheduled 2022-12-20 Screening for malignant [facility] 21:45:19 neoplasm of colon Hospital (procedure) [code = 247885011] Future Scheduled 2022-12-20 Screening for malignant [facility] 21:45:19 neoplasm of colon Hospital (procedure) [code = 150103021] Future Scheduled 2022-12-20 Screening for malignant [facility] 21:45:19 neoplasm of colon Hospital (procedure) [code = 483383687] Future Scheduled 2022-12-20 COVID-19 VACCINE (#1) [facility] 21:45:19 [code = COVID-19 VACCINE Hos pital (#1)] Future Scheduled 2022-12-20 Screening for malignant [facility] 21:45:19 neoplasm of colon Hospital (procedure) [code = 819605683] Future Scheduled 2022-12-20 Screening for malignant [facility] 21:45:19 neoplasm of colon Hospital (procedure) [code = 125222915] Future Scheduled 2022-12-20 SHINGLES VACCINES (1 of [facility] 21:45:19 2) [code = SHINGLES Hospital VACCINES (1 of 2)] Future Scheduled 2022-12-20 INFLUENZA VACCINE [code = [facility] 21:45:19 INFLUENZA VACCINE] Hospital Future Scheduled 2022-11-28 Screening for malignant [facility] 11:18:16 neoplasm of colon Hospital (procedure) [code = 310640153] Future Scheduled 2022-11-28 Screening for malignant [facility] 11:18:16 neoplasm of colon Hospital (procedure) [code = 263889271] Future Scheduled 2022-11-28 Screening for malignant [facility] 11:18:16 neoplasm of colon Hospital (procedure) [code = 736753706] Future Scheduled 2022-11-28 COVID-19 VACCINE (#1) [facility] 11:18:16 [code = COVID-19 VACCINE Hos pital (#1)] Future Scheduled 2022-11-28 Screening for malignant [facility] 11:18:16 neoplasm of colon Hospital (procedure) [code = 238409394] Future Scheduled 2022-11-28 Screening for malignant [facility] 11:18:16 neoplasm of colon Hospital (procedure) [code = 056306472] Future Scheduled 2022-11-28 SHINGLES VACCINES (1 of [facility] 11:18:16 2) [code = SHINGLES Hospital VACCINES (1 of 2)] Future Scheduled 2022-11-28 INFLUENZA VACCINE [code = [facility] 11:18:16 INFLUENZA VACCINE] Hospital Future Scheduled 2022-11-21 Screening for malignant [facility] 10:58:39 neoplasm of colon Hospital (procedure) [code = 148830713] Future Scheduled 2022-11-21 Screening for malignant [facility] 10:58:39 neoplasm of colon Hospital (procedure) [code = 650440309] Future Scheduled 2022-11-21 Screening for malignant [facility] 10:58:39 neoplasm of colon Hospital (procedure) [code = 689066230] Future Scheduled 2022-11-21 COVID-19 VACCINE (#1) [facility] 10:58:39 [code = COVID-19 VACCINE Hos pital (#1)] Future Scheduled 2022-11-21 Screening for malignant [facility] 10:58:39 neoplasm of colon Hospital (procedure) [code = 896315963] Future Scheduled 2022-11-21 Screening for malignant [facility] 10:58:39 neoplasm of colon Hospital (procedure) [code = 290542001] Future Scheduled 2022-11-21 SHINGLES VACCINES (1 of [facility] 10:58:39 2) [code = SHINGLES Hospital VACCINES (1 of 2)] Future Scheduled 2022-11-21 INFLUENZA VACCINE [code = [facility] 10:58:39 INFLUENZA VACCINE] Hospital Future Scheduled 2022-10-25 Screening for malignant [facility] 12:18:53 neoplasm of colon Hospital (procedure) [code = 094923384] Future Scheduled 2022-10-25 Screening for malignant [facility] 12:18:53 neoplasm of colon Hospital (procedure) [code = 654507962] Future Scheduled 2022-10-25 Screening for malignant [facility] 12:18:53 neoplasm of colon Hospital (procedure) [code = 826662526] Future Scheduled 2022-10-25 COVID-19 VACCINE (#1) [facility] 12:18:53 [code = COVID-19 VACCINE Hos pital (#1)] Future Scheduled 2022-10-25 Screening for malignant [facility] 12:18:53 neoplasm of colon Hospital (procedure) [code = 420930800] Future Scheduled 2022-10-25 Screening for malignant [facility] 12:18:53 neoplasm of colon Hospital (procedure) [code = 039168777] Future Scheduled 2022-10-25 SHINGLES VACCINES (1 of [facility] 12:18:53 2) [code = SHINGLES Hospital VACCINES (1 of 2)] Future Scheduled 2022-10-25 INFLUENZA VACCINE [code = [facility] 12:18:53 INFLUENZA VACCINE] Hospital Future Scheduled [...] Future Scheduled 2022-08-15 SHINGLES VACCINES (1 of [facility] 23:12:16 2) [code = SHINGLES Hospital VACCINES (1 of 2)] Future Scheduled 2022-08-15 INFLUENZA VACCINE [code = [facility] 23:12:16 INFLUENZA VACCINE] Hospital Future Scheduled [...] Future Scheduled 2022-04-25 SHINGLES VACCINES (1 of [facility] 20:19:34 2) [code = SHINGLES Hospital VACCINES (1 of 2)] Future Scheduled 2022-04-25 INFLUENZA VACCINE [code = [facility] 20:19:34 INFLUENZA VACCINE] Hospital Future Scheduled 2022-04-25 COVID-19 VACCINE (#1) [facility] 20:19:34 [code = COVID-19 VACCINE Hos pital (#1)] Future Scheduled 2022-04-25 COLONOSCOPY SCREENING [facility] 20:19:34 [code = COLONOSCOPY Hospital SCREENING] Future Scheduled 2022-04-25 SHINGLES VACCINES (1 of [facility] 20:19:34 2) [code = SHINGLES Hospital VACCINES (1 of 2)] Future Scheduled 2022-04-25 INFLUENZA VACCINE [code = [facility] 20:19:34 INFLUENZA VACCINE] Hospital Future Scheduled 2022-04-25 COVID-19 VACCINE (#1) [facility] 20:19:34 [code = COVID-19 VACCINE Hos pital (#1)] Future Scheduled 2022-04-25 COLONOSCOPY SCREENING [facility] 20:19:34 [code = COLONOSCOPY Hospital SCREENING] Future Scheduled 2022-04-25 SHINGLES VACCINES (1 of [facility] 20:19:34 2) [code = SHINGLES Hospital VACCINES (1 of 2)] Future Scheduled 2022-04-25 INFLUENZA VACCINE [code = [facility] 20:19:34 INFLUENZA VACCINE] Hospital Future Scheduled 2022-04-25 COVID-19 VACCINE (#1) [facility] 20:19:34 [code = COVID-19 VACCINE Hos pital (#1)] Future Scheduled 2022-04-25 COLONOSCOPY SCREENING [facility] 20:19:34 [code = COLONOSCOPY Hospital SCREENING] Future Scheduled 2022-04-25 SHINGLES VACCINES (1 of [facility] 20:19:34 2) [code = SHINGLES Hospital VACCINES (1 of 2)] Future Scheduled 2022-04-25 INFLUENZA VACCINE [code = [facility] 20:19:34 INFLUENZA VACCINE] Hospital Future Scheduled 2022-03-14 HEPATITIS B VACCINES (1 [facility] 23:23:26 of 3 - 3-dose series) Hospit al [code = HEPATITIS B VACCINES (1 of 3 - 3-dose series)] Future Scheduled 2022-03-14 COVID-19 VACCINE (#1) [facility] 23:23:26 [code = COVID-19 VACCINE Hos pital (#1)] Future Scheduled 2022-03-14 COLONOSCOPY SCREENING [facility] 23:23:26 [code = COLONOSCOPY Hospital SCREENING] Future Scheduled 2022-03-14 SHINGLES VACCINES (1 of [facility] 23:23:26 2) [code = SHINGLES Hospital VACCINES (1 of 2)] Future Scheduled 2022-03-14 INFLUENZA VACCINE [code = [facility] 23:23:26 INFLUENZA VACCINE] Hospital Future Scheduled 2022-03-14 HEPATITIS B VACCINES (1 [facility] 23:23:26 of 3 - 3-dose series) Hospit al [code = HEPATITIS B VACCINES (1 of 3 - 3-dose series)] Future Scheduled 2022-03-14 COVID-19 VACCINE (#1) [facility] 23:23:26 [code = COVID-19 VACCINE Hos pital (#1)] Future Scheduled 2022-03-14 COLONOSCOPY SCREENING [facility] 23:23:26 [code = COLONOSCOPY Hospital SCREENING] Future Scheduled 2022-03-14 SHINGLES VACCINES (1 of [facility] 23:23:26 2) [code = SHINGLES Hospital VACCINES (1 of 2)] Future Scheduled 2022-03-14 INFLUENZA VACCINE [code = [facility] 23:23:26 INFLUENZA VACCINE] Hospital Future Scheduled 2022-01-03 INFLUENZA VACCINE [code = [facility] 17:56:50 INFLUENZA VACCINE] Hospital Future Scheduled 2022-01-03 HEPATITIS B VACCINES (1 [facility] 17:56:50 of 3 - 3-dose series) Hospit al [code = HEPATITIS B VACCINES (1 of 3 - 3-dose series)] Future Scheduled 2022-01-03 COVID-19 VACCINE (#1) [facility] 17:56:50 [code = COVID-19 VACCINE Hos pital (#1)] Future Scheduled 2022-01-03 COLONOSCOPY SCREENING [facility] 17:56:50 [code = COLONOSCOPY Hospital SCREENING] Future Scheduled 2022-01-03 SHINGLES VACCINES (1 of [facility] 17:56:50 2) [code = SHINGLES Hospital VACCINES (1 of 2)] Future Scheduled 2022-01-03 INFLUENZA VACCINE [code = [facility] 17:56:50 INFLUENZA VACCINE] Hospital Future Scheduled 2022-01-03 HEPATITIS B VACCINES (1 [facility] 17:56:50 of 3 - 3-dose series) Hospit al [code = HEPATITIS B VACCINES (1 of 3 - 3-dose series)] Future Scheduled 2022-01-03 COVID-19 VACCINE (#1) [facility] 17:56:50 [code = COVID-19 VACCINE Hos pital (#1)] Future Scheduled 2022-01-03 COLONOSCOPY SCREENING [facility] 17:56:50 [code = COLONOSCOPY Hospital SCREENING] Future Scheduled 2022-01-03 SHINGLES VACCINES (1 of [facility] 17:56:50 2) [code = SHINGLES Hospital VACCINES (1 of 2)] Future Scheduled 2022-01-03 INFLUENZA VACCINE [code = [facility] 17:56:50 INFLUENZA VACCINE] Hospital Future Scheduled 2022-01-03 HEPATITIS B VACCINES (1 [facility] 17:56:50 of 3 - 3-dose series) Hospit al [code = HEPATITIS B VACCINES (1 of 3 - 3-dose series)] Future Scheduled 2022-01-03 COVID-19 VACCINE (#1) [facility] 17:56:50 [code = COVID-19 VACCINE Hos pital (#1)] Future Scheduled 2022-01-03 COLONOSCOPY SCREENING [facility] 17:56:50 [code = COLONOSCOPY Hospital SCREENING] Future Scheduled 2022-01-03 SHINGLES VACCINES (1 of [facility] 17:56:50 2) [code = SHINGLES Hospital VACCINES (1 of 2)] Future Scheduled 2022-01-03 INFLUENZA VACCINE [code = [facility] 17:56:50 INFLUENZA VACCINE] Hospital Future Scheduled 2022-01-03 HEPATITIS B VACCINES (1 [facility] 17:56:50 of 3 - 3-dose series) Hospit al [code = HEPATITIS B VACCINES (1 of 3 - 3-dose series)] Future Scheduled 2022-01-03 COVID-19 VACCINE (#1) [facility] 17:56:50 [code = COVID-19 VACCINE Hos pital (#1)] Future Scheduled 2022-01-03 COLONOSCOPY SCREENING [facility] 17:56:50 [code = COLONOSCOPY Hospital SCREENING] Future Scheduled 2022-01-03 SHINGLES VACCINES (1 of [facility] 17:56:50 2) [code = SHINGLES Hospital VACCINES (1 of 2)] Future Scheduled 2022-01-03 INFLUENZA VACCINE [code = [facility] 17:56:50 INFLUENZA VACCINE] Hospital Future Scheduled 2022-01-03 HEPATITIS B VACCINES (1 Congregation Test 17:56:50 of 3 - 3-dose series) Hospit al [code = HEPATITIS B VACCINES (1 of 3 - 3-dose series)] Future Scheduled 2022-01-03 COVID-19 VACCINE (#1) [facility] 17:56:50 [code = COVID-19 VACCINE Hos pital (#1)] Future Scheduled 2022-01-03 COLONOSCOPY SCREENING [facility] 17:56:50 [code = COLONOSCOPY Hospital SCREENING] Future Scheduled 2022-01-03 SHINGLES VACCINES (1 of Congregation Test 17:56:50 2) [code = SHINGLES Hospital [...] [facility] 00:[facility]00 2) [code = SHINGLES [facility] Center VACCINES (1 of 2)] Future Scheduled [...] screening Medical Cent er (procedure) [code = 433141314] Future Scheduled [address] [facility] virus screening Medical Cent er (procedure) [code = 964379519] Future Scheduled [address] [facility] Test 00:00:00 Counseling and Screening Med ical Center (12+) [code = Tobacco Cessation Counseling and Screening (12+)] Future Scheduled [address] [facility] Test 00:00:00 Counseling and Screening Med ical Center (12+) [code = Tobacco Cessation Counseling and Screening (12+)] Future Scheduled [address] [facility] Test 00:00:00 Counseling and Screening Med ical Center (12+) [code = Tobacco Cessation Counseling [...] [facility] Test 00:00:00 [code = COVID-19 VACCINE [facility] (#1)] Future Scheduled 1970 CT Colonography (combo) [facility] Test 00:00:00 [code = CT Colonography Medi lula Center (combo)] Future Scheduled 1970 Screening for malignant [facility] Test 00:00:00 neoplasm of colon Medical Ce nter (procedure) [code = 127009060] Future Scheduled 1970 Screening for malignant [facility] Test 00:00:00 neoplasm of colon Medical Ce nter (procedure) [code = 988439054] Future Scheduled 1970 Screening for malignant [facility] Test 00:00:00 neoplasm of colon Medical Ce nter (procedure) [code = 148025101] Future Scheduled 1970 Screening for malignant [facility] Test 00:00:00 neoplasm of colon Medical Ce nter (procedure) [code = 802578056] Future Scheduled 1970 Sigmoidoscopy [code = [facility] Sigmoidoscopy] Medical Cente r Future Scheduled 1970 CT Colonography (combo) [facility] Test 00:00:00 [code = CT Colonography [facility] lula Center (combo)] Future Scheduled 1970 Screening for malignant [facility] Test 00:00:00 neoplasm of colon Medical Ce nter (procedure) [code = 317984725] Future Scheduled 1970 Screening for malignant [facility] Test 00:00:00 neoplasm of colon Medical Ce nter (procedure) [code = 749702011] Future Scheduled 1970 Screening for malignant [facility] Test 00:00:00 neoplasm of colon Medical Ce nter (procedure) [code = 458721393] Future Scheduled 1970 Screening for malignant [facility] Test 00:00:00 neoplasm of colon Medical Ce nter (procedure) [code = 427510554] Future Scheduled 1970 Sigmoidoscopy [code = [facility] S[facility]oidoscopy] Medical Cente r Future Scheduled 1970 CT Colonography (combo) [facility] Test 00:00:00 [code = CT Colonography Medi lula Center (combo)] Future Scheduled 1970 Screening for malignant [facility] Test 00:00:00 neoplasm of colon Medical Ce nter (procedure) [code = 209106931] Future Scheduled 1970 Screening for malignant [facility] Test 00:00:00 neoplasm of colon Medical Ce nter (procedure) [code = 847944798] Future Scheduled 1970 Screening for malignant [facility] Test 00:00:00 neoplasm of colon Medical Ce nter (procedure) [code = 068943379] Future Scheduled 1970 Screening for malignant [facility] Test 00:00:00 neoplasm of colon Medical Ce nter (procedure) [code = 418275638] Future Scheduled 1970 Sigmoidoscopy [code = [facility] 00:[facility] Sigmoidoscopy] Medical Cente r Encounters Start End Encounter Admission Attending Care Care Encounter Source Date/Time Date/Time Type Type Clinicians Facility Department ID 2022-11-24 Inpatient ER MEDINA, [facility] [id number] [facility] 18:28:35 MRINALINI 2022-11-24 Inpatient ER [facility], [facility] [id number] [facility] 08:11:11 MRINALINI 2022-11-23 Inpatient ER CATES, [facility] [id number] [facility] 12:42:16 [facility] 2022-11-22 Inpatient ER [facility] [id number] [facility] 09:39:31 2022-11-22 Inpatient ER [facility] [id number] [facility] 09:07:19 2022-11-21 Inpatient ER CATES, [facility] [id number] [facility] 22:21:04 [place] 2022-11-21 Inpatient ER CATES, [facility] [id number] [facility] 16:26:35 [facility] 2023-01-30 2023-01-30 Outpatient R [facility] [id number] Univers 12:30:00 12:30:00 [facility] 2023-01-04 2023-01-04 Outpatient R FARZANA, [facility] [id number] Univers 15:30:00 15:30:00 BLESSING [facility] 2023-01-03 2023-01-03 Patient Farzana, [facility] 1.2.840.114 [id number] Univers 00:00:00 00:00:00 Secure Msg Blessing Herr HEALTH 350.1.13.10 ity of [place] 4.2.7.2.686 Adrien as BORIS?BLEA [id number] [address] OFFICE [facility] 2023-01-02 2023-01-02 [facility] [id number] Univers 13:00:00 14:19:[address] [facility] 2023-01-02 2023-01-02 Office [facility] 1.2.840.114 [id number] Univers 13:00:00 14:19:25 Visit Blessing Herr HEALTH 350.1.13.10 i ty of [place] 4.2.7.2.686 Adrien as BORIS?BLEA [id number] [address] OFFICE [facility] 2022-12-31 2022-12-31 Telephone Elijah [facility] 1.2.840.114 [id number] Univers 00:00:00 00:00:00 , Jamila HEALTH 350.1.13.10 ity of M [place] 4.2.7.2.686 Adrien as BORIS?BLEA [phone] [address] OFFICE [facility] 2022-12-28 2022-12-28 [facility] 1.2.840.114 [id number] Univers 00:00:00 00:00:00 Secure g Blessing A HEALTH 350.1.13.10 ity of [facility] 4.2.7.2.686 Adrien as BORIS?BLEA [phone] [address] OFFICE [facility] 2022-12-25 2022-12-25 Orders Doctor ALEM 1.2.840.114 [id number] Univers 00:00:00 00:00:00 Only Unassigned, JOSESITO 350.1.13.10 ity of [place] [facility] 4.2.7.2.686 Adrien as [phone] [address] 2022-12-25 2022-12-25 Telephone [facility] [phone] [id number] Univers 00:00:00 00:00:00 Blessing A HEALTH 350.1.13.10 i ty of [place] 4.2.7.2.686 Adrien as BORIS?BLEA [phone] [address] 2022-12-25 2022-12-25 Telephone [facility] 1.2.297.440 [id number] Univers 00:00:00 00:00:00 Blessing A HEALTH 350.1.13.10 i ty of [place] 4.2.7.2.686 Adrien as BORIS?BLEA [id number] [address] 2022-12-20 2022-12-20 Refill [facility] 12.840.114 [id number] Univers 00:00:00 00:00:00 Blessing A HEALTH 350.1.13.10 i ty of [place] 4.2.7.2.686 Adrien as BORIS?BLEA [id number] [address] 2022-12-17 2022-12-17 Zuleika Phillips [facility] 1.2.840.114 [id number] Univers 00:00:00 00:00:00 , Jamila HEALTH 350.1.13.10 ity of M [place] 4.2.7.2.686 Adrien as BORIS?BLEA [id number] [address] 2022-12-13 2022-12-13 Outpatient R FARZANA [facility] [id number] Univers 12:30:00 12:30:[address] [facility] 2022-12-12 2022-12-12 [facility] [id number] Univers 12:30:00 12:30:[address] [facility] 2022-12-11 2022-12-11 Telephone [facility] 1.2.609.029 [id number] Univers 00:00:00 00:00:00 Blessing A HEALTH 350.1.13.10 i ty of [place] 4.2.7.2.686 Adrien as BORIS?BLEA [id number] [address] MEDICAL OFFICE [facility] 2022-12-11 2022-12-11 Patient Farzana, [facility] 1.2.840.114 [id number] Univers 00:00:00 00:00:00 Secure Msg Blessing A HEALTH 350.1.13.10 ity of [place] 4.2.7.2.686 Adrien as BORIS?BLEA [phone] [address] MEDICAL OFFICE [facility] 2022-12-10 2022-12-10 Orders Doctor ALEM 1.2.840.114 [id number] Univers 00:00:00 00:00:00 Only Unassigned, JOSESITO 350.1.13.10 ity of [place] [facility] 4.2.7.2.686 Adrien as [phone] [address] 2022-12-07 2022-12-07 Telephone Elijah [facility] 1.2.840.114 [id number] Univers 00:00:00 00:00:00 , Jamila HEALTH 350.1.13.10 ity of M [place] 4.2.7.2.686 Adrien as BORIS?BLEA [id number] [address] OFFICE [facility] 2022-12-05 2022-12-05 Telephone [facility] 1.2.840.114 [id number] Univers 00:00:00 00:00:00 , Jamila HEALTH 350.1.13.10 ity of M [place] 4.2.7.2.686 Adrien as BORIS?BLEA [phone] [address] MEDICAL OFFICE [facility] 2022-12-05 2022-12-05 Patient Farzana, [facility] 1.2.840.114 [id number] Univers 00:00:00 00:00:00 Secure Msg Blessing A HEALTH 350.1.13.10 ity of [place] 4.2.7.2.686 Adrien as BORIS?BLEA [id number] [address] OFFICE [facility] 2022-12-04 2022-12-04 Refill Ridgway [facility] 1.2.840.114 [id number] Univers 00:00:00 00:00:00 , Jamila HEALTH 350.1.13.10 ity of M [place] 4.2.7.2.686 Adrien as BORIS?BLEA [id number] [address] MEDICAL OFFICE [facility] 2022-12-04 2022-12-04 Refill [facility] 1.2.840.114 [id number] Univers 00:00:00 00:00:00 , Jamila HEALTH 350.1.13.10 ity of M [place] 4.2.7.2.686 Adrien as BORIS?BLEA [id number] [address] MEDICAL OFFICE [facility] 2022-11-30 2022-11-30 Outpatient R DEVEN [facility] [id number] Univers 14:00:00 14:00:00 DILIP donnelly o f [facility] 2022-11-28 2022-11-28 Outpatient R ELIJAH [facility] [id number] Univers 11:20:00 12:31:29 , JAMILA it y of [facility] 2022-11-28 2022-11-28 Office [facility] 1.2.840.114 [id number] Univers 11:20:00 12:31:29 Visit , Jamila [facility] 350.1.13.10 ity of [place] 4.2.7.2.686 Adrien as BORIS?BLEA [phone] [address] OFFICE [facility] 2022-11-28 2022-11-28 Patient Fabian [facility] 1.2.840.114 [id number] Univers 00:00:00 00:00:00 Outreach Ashley Francis HEALTH 350.1.13.10 i ty of [place] 4.2.7.2.686 Adrien as BORIS?BLEA [id number] [address] MEDICAL OFFICE [facility] 2022-11-26 2022-11-26 Telephone Farzana [facility] 1.2.259.962 [id number] Univers 00:00:00 00:00:00 Blessing A HEALTH 350.1.13.10 i ty of [place] 4.2.7.2.686 Adrien as BORIS?BLEA [phone] [facility] [address] MEDICAL OFFICE BUILDING 2022-11-21 2022-11-25 Inpatient ER ARANZA HANEY Neuro ICU [id number] [facility] 14:05:00 11:27:00 [facility] 2022-11-21 2022-11-25 Hospital ER Dalila Rodriguez [facility] [id number] [facility] 14:05:00 11:27:00 Encounter [place] Cates Najamus M edical Kulkarni, [facility] 2022-11-21 2022-11-25 [facility] Dal[facility] Rodriguez [facility] [id number] 14:05:00 11:27:00 Encounter [place]ates Najamus M edical Kulkarni, [facility] 2022-11-24 2022-11-24 Orders [facility] [id number] 00:00:00 00:00:00 Only [facility] 2022-11-24 2022-11-24 Orders [facility] [id number] 00:00:00 00:00:00 Only [facility] 2022-11-23 2022-11-23 Telephone Deven [facility] 1.2.231.768 [id number] Univers 00:00:00 00:00:00 Dilip [place] 350.1.13.10 ity of [place] 4.2.7.2.[place] ES[place] [id number] Ga dicnm NAL 059 [facility] 2022-11-23 2022-11-23 Refmarah Villalobos [facility] 1.2.840.114 [id number] Univers 00:00:00 00:00:00 Critical access hospital 350.1.13.10 it y of [place] 4.2.7.2.686 Adrien as BORIS?BLEA [phone] Ga dical ANUM [address] MEDICAL OFFICE [facility] 2022-11-21 2022-11-21 Patient Farzana [facility] 1.2.840.114 [id number] Univers 00:00:00 00:00:00 Secure Msg Blessing A HEALTH 350.1.13.10 ity of [place] 4.2.7.2.686 Adrien as BORIS?BLEA [phone] [address] OFFICE [facility] 2022-11-21 2022-11-21 Orders [facility] [id number] 00:00:00 00:00:00 Only [facility] 2022-11-21 2022-11-21 Orders [facility] [id number] 00:00:00 00:00:00 Only [facility] 2022-11-12 2022-11-12 Refmarah [facility] 1.2.840.114 [id number] Univers 00:00:00 00:00:00 Blessing A HEALTH 350.1.13.10 i ty of [place] 4.2.7.2.686 Adrien as BORIS?BLEA [id number] [address] 2022-11-10 2022-11-10 Refmarah [facility] 1.2.840.114 [id number] Univers 00:00:00 00:00:00 [facility] HEALTH 350.1.13.10 i ty of [place] 4.2.7.2.686 Adrien as BORIS?BLEA [id number] [address] 2022-11-10 2022-11-10 Refmarah [facility] 1.2.840.114 [id number] Univers 00:00:00 00:00:00 Blessing A HEALTH 350.1.13.10 i ty of [place] 4.2.7.2.686 Adrien as BORIS?BLEA [id number] [address] 2022-10-28 2022-10-28 Emergency X HUMBERTO ALKATELYN ERT [id number] Univers 10:30:00 18:00:[address] [facility] 2022-10-28 2022-10-28 Emergency [facility] 1.2.110.877 [id number] Univers 10:30:00 18:00:00 Candida S [place] 350.1.13.10 i ty of [place] 4.2.7.2.[place] [id number] [address] 2022-10-24 2022-10-24 Outpatient R DEVEN, [facility] [id number] Univers 14:40:00 14:40:00 DILIP calderóny o f [facility] 2022-10-15 2022-10-15 [facility] [id number] Univers 14:40:00 14:40:00 DILIP calderóny o [facility] 2022-10-12 2022-10-12 Refill [facility] 1.2.840.114 [id number] Univers 00:00:00 00:00:00 Blessing A HEALTH 350.1.13.10 i ty of [facility] 4.2.7.2.686 Adrien as BORIS?BLEA [id number] [address] OFFICE [facility] 2022-10-12 2022-10-12 [facility] 1.2.840.114 [id number] Univers 00:00:00 00:00:00 Blessing A HEALTH 350.1.13.10 i ty of [place] 4.2.7.2.686 Adrien as BORIS?BLEA [id number] [address] OFFICE [facility] 2022-10-12 2022-10-12 [facility] 1.2.840.114 [id number] Univers 00:00:00 00:00:00 Blessing A HEALTH 350.1.13.10 i ty of [place] 4.2.7.2.686 Adrien as BORIS?BLEA [id number] [address] 2022-10-12 2022-10-12 [facility] 1.2.840.114 [id number] Univers 00:00:00 00:00:00 [facility] HEALTH 350.1.13.10 i ty of [place] 4.2.7.2.686 Adrien as BORIS?BLEA [id number] [address] OFFICE [facility] 2022-10-01 2022-10-01 Outpatient R DEVEN, [facility] [id number] Univers 14:00:00 14:00:00 DILIP ity o f [facility] 2022-09-18 2022-09-18 Telephone [facility] 1.2.743.057 [id number] Univers 00:00:00 00:00:00 Qiadeon [place] 350.1.13.[address] [facility] 4.2.7.2.[place] [phone] Ga dical NAL 059 [facility] 2022 2022 Outpatient R DEVEN, [facility] [id number] Univers 09:00:00 09:00:00 DILIP calderóny o f [facility] 2022-09-05 2022-09-05 Refill [facility] 1.2.840.114 [id number] Univers 00:00:00 00:00:00 Blessing A HEALTH 350.1.13.10 i ty of [facility] 4.2.7.2.686 Adrien as BORIS?BLEA [id number] [address] OFFICE [facility] 2022-09-03 2022-09-03 Patient [facility] 1.2.840.114 [id number] Univers 00:00:00 00:00:00 Secure Msg Blessing A HEALTH 350.1.13.10 ity of [facility] 4.2.7.2.686 Adrien as BORIS?BLEA [phone] Ga dic[address] OFFICE [facility] 2022-08-31 2022-08-31 [facility] 1.2.840.114 [id number] Univers 00:00:00 00:00:00 Secure Msg Blessing A HEALTH 350.1.13.10 ity of [place] 4.2.7.2.686 Adrien as BORIS?BLEA [phone] Ga dic[address] OFFICE [facility] 2022-08-31 2022-08-31 Patient [facility] 1.2.840.114 [id number] Univers 00:00:00 00:00:00 Secure Msg Qiangjun [place] 350.1.13.10 ity of [place].2.7.2.[place] [phone] Ga dical NAL 9 [facility] 2022-08-31 2022-08-31 Refill [facility] 1.2.840.114 [id number] Univers 00:00:00 00:00:00 Maggie MULTISPEC 350.1.13.10 ity of [place].7.2.686 [place] C[place] [phone] Adore cotton AND JAIRO [address] [facility] 2022-08-31 2022-08-31 Refill [facility]GERALD [facility] 1.2.840.114 [id number] Univers 00:00:00 00:00:00 Alfred HEALTH 350.1.13.10 it y of [facility] 4.2.7.2.686 Adrien as BORIS?BLEA [phone] Ga dical ANUM [address] [place] [address] MEDICAL OFFICE [facility] 2022-08-27 2022-08-27 Telephone [facility] 1.2.407.825 [id number] Univers 00:00:00 00:00:00 Dilip [place] 350.1.13.10 ity of [place] [phone] Ga dical NAL 9 [facility] 2022-08-14 2022-08-14 Patient [facility] 1.2.840.114 [id number] Univers 00:00:00 00:00:00 Secure Msg Blessing A HEALTH 350.1.13.10 ity of [place] 4.2.7.2.686 Adrien as BORIS?BLEA [phone] Ga dical KNEY [address] MEDICAL OFFICE [facility] 2022-08-11 2022-08-11 Emergency ER CATMILADYS, [facility] [id number] [place] 05:03:00 06:34:00 TEREZA -[id number] Critical access hospital 2022-07-21 2022-07-21 Emergency ER SHEKHAR, [facility] D000 [id number] [place] 19:47:00 21:28:00 CASSY -[id number] Critical access hospital 2022-07-03 2022-07-03 Outpatient [facility] 814 [place] 00:00:00 00:00:00 HN 0221 da [facility] 2022-07-02 2022-07-02 Telephone Ihsan [facility] 1.2.840.114 1 [id number] Univers 00:00:00 00:00:00 Kay Francis MULTISPEC 350.1.13.10 [place] [phone] Adore [facility] AND JAIRO [address] [facility] 2022-06-25 2022-06-25 Refill Doctor [facility] 1.2.840.114 [id number] Univers 00:00:00 00:00:00 Unassigned, HEALTH 350.1.13.10 ity of [place] 4.2.7.2.686 Adrien as BORIS?BLEA [phone] [address] MEDICAL OFFICE BUILDING 2022-06-25 2022-06-25 Ref[facility] 1.2.840.114 [id number] Univers 00:00:00 00:00:00 Blessing A HEALTH 350.1.13.10 i ty of [place] 4.2.7.2.686 Adrien as BORIS?BLEA [id number] [address] OFFICE [facility] 2022-06-25 2022-06-25 Refill [facility] 1.2.840.114 [id number] Univers 00:00:00 00:00:00 Blessing A HEALTH 350.1.13.10 i ty of [place] 4.2.7.2.686 Adrien as BORIS?BLEA [phone] [address] MEDICAL OFFICE BUILDING 2022-06-25 2022-06-25 Patient [facility] 1.2.840.114 [id number] Univers 00:00:00 00:00:00 Secure Msg Blessing A HEALTH 350.1.13.10 ity of [place] 4.2.7.2.686 Adrien as BORIS?BLEA [id number] [address] OFFICE [facility] 2022-05-03 2022-05-03 Orders Doctor ALEM 1.2.840.114 [id number] Univers 00:00:00 00:00:00 Only Unassigned, JOSESIT[place] 350.1.13.10 ity of [place] [facility] 4.2.7.2.686 Adrien as [phone] [address] 2022-04-24 2022-04-24 Patient Deven, [facility] 1.2.840.114 [id number] Univers 00:00:00 00:00:00 Secure Msg Dilip [place] 350.1.13.10 ity of [place].2.[place] [phone] Ga susanna [facility] 2022-04-23 2022-04-23 Patient Farzana, [facility] 1.2.840.114 [id number] Univers 00:00:00 00:00:00 Secure Msg Blessing A HEALTH 350.1.13.10 ity of [facility] 4.2.7.2.686 Adrien as BORIS?BLEA [id number] [address] OFFICE [facility] 2022-04-23 2022-04-23 Patient Farzana, [facility] 1.2.840.114 [id number] Univers 00:00:00 00:00:00 Secure Msg Blessing A HEALTH 350.1.13.10 ity of [place] 4.2.7.2.686 Adrien as BORIS?BLEA [id number] [address] OFFICE [facility] 2022-04-22 2022-04-22 Refill [facility] 1.2.840.114 [id number] Univers 00:00:00 00:00:00 Blessing A HEALTH 350.1.13.10 i ty of [place] 4.2.7.2.686 Adrien as BORIS?BLEA [phone] [address] OFFICE [facility] 2022-04-08 2022-04-08 Telephone [facility] 1.2.466.391 [id number] Univers 00:00:00 00:00:00 Blessing A HEALTH 350.1.13.10 i ty of [place] 4.2.7.2.686 Adrien as BORIS?BLEA [phone] Ga dical KNEY 044 [facility] OFFICE [facility] 2022-04-06 2022-04-06 Emergency ER SKYLAR [facility] [id number] [place] 12:30:00 15:21:00 ADITYA -[id number] Critical access hospital 2022-04-06 2022-04-06 [facility] 1.2.840.114 [id number] Univers 00:00:00 00:00:00 [facility] 350.1.13.10 [place] [id number] [place] dic[address] 2022-04-04 2022-04-04 Patient [facility] 1.2.840.114 [id number] Univers 00:00:00 00:00:00 Secure Msg Kay DARBYPEC 350.1.13.10 [place] [phone] [facility] [address] [facility] 2022-04-03 2022-04-03 Office [facility] 1.2.840.114 [id number] Univers 14:20:00 14:20:00 Visit Dilip [facility] 350.1.13.10 [place] [phone] [address] 2022-04-03 2022-04-03 [facility] [id number] Univers 14:20:00 14:09:45 RICARDAALANNAH ity o f [facility] 2022-04-03 2022-04-03 Refill [facility] 1.2.840.114 [id number] Univers 00:00:00 00:00:00 Kay Francis MULTISPEC 350.1.13.10 [place] [id number] [facility] AND [address] [facility] 2022-04-03 2022-04-03 Orders Doctor ALEM 1.2.840.114 [id number] Univers 00:00:00 00:00:00 Only Unassigned, JOSESITO 350.1.13.10 [facility] 4.2.7.2.686 Adrien as [phone] [address] 2022-03-19 2022-03-19 Outpatient R DEVEN, [facility] [id number] Univers 09:20:00 09:20:00 [facility] 2022-03-19 2022-03-19 Outpatient R DEVEN, [facility] [id number] Univers 09:20:00 09:20:00 [facility] cony [facility] 2022-03-19 2022-03-19 Outpatient R DEVEN, [facility] [id number] Univers 09:20:00 09:20:00 [facility] [facility] 2022-03-19 2022-03-19 Outpatient R DEVEN, [facility] [id number] Univers 09:20:00 09:20:00 [facility] 2022-03-19 2022-03-19 Outpatient R DEVEN, [facility] [id number] Univers 09:20:00 09:20:00 [facility] 2022-02-15 2022-02-15 Telephone [facility] 1.2.219.985 [id number] Univers 00:00:00 00:00:00 Blessing A HEALTH 350.1.13.10 i ty [facility] 4.2.7.2.686 Adrien as BORIS?BLEA [phone] Ga ana paula[address] MEDICAL OFFICE BUILDING 2022-02-14 2022-02-14 Outpatient FERLONNIE_MELISSA RESENDIZ [facility] [address]14 [place] 00:00:00 00:00:00 HN [facility]5 [facility] 2022-02-14 2022-02-14 Patient [facility] 1.2.840.114 [id number] Univers 00:00:00 00:00:00 Secure Msg Blessing A HEALTH 350.1.13.10 ity [facility] 4.2.7.2.686 Adrien as BORIS?BLEA [phone] Me dical KNEY [address] MEDICAL OFFICE [facility] 2022-02-13 2022-02-13 Outpatient R FARZANA [facility] [id number] Univers 12:37:39 23:59:00 BLESSING ity of [facility] 2022-02-13 2022-02-13 Hospital [facility] 1.2.840.114 [id number] Univers 12:37:39 23:59:00 Encounter Blessing [place] 350.1.13.10 it[place].2.7.[place] [id number] [facility] [address] 2022-02-08 2022-02-09 Inpatient [facility] [id number] [place] 06:37:00 18:02:00 [id number] Critical access hospital 2022-02-09 2022-02-09 Isabella [facility] 1.2.840.114 [id number] Univers 00:00:00 00:00:00 Qiadeon [place] 350.1.13.10 it[place] of [place] [id number] Ga dical NAL 059 [facility] 2022-02-08 2022-02-08 Patient [facility] 1.2.840.114 [id number] Univers 00:00:00 00:00:00 Secure Msg Jacqui Beaver [place] 350.1.13.10 ity of [place].7.2.[place] [phone] Ga dical NAL 044 [facility] 2022-02-08 2022-02-08 Patient [facility] 1.2.840.114 [id number] Univers 00:00:00 00:00:00 Secure Msg Blessing Herr [facility] 350.1.13.10 ity of [place] 4.2.7.2.686 Adrien as BORIS?BLEA [phone] Ga dical KNEY [address] MEDICAL OFFICE [facility] 2022-02-05 2022-02-05 Telephone [facility] 1.2.297.388 [id number] Univers 00:00:00 00:00:00 Blessing Herr HEALTH 350.1.13.10 i ty of [facility] 4.2.7.2.686 Adrien as BORIS?BLEA [phone] [facility] [address] MEDICAL OFFICE [facility] 2022-02-02 2022-02-02 Hydrologic Engineer Lab, Ang - Db [facility] 1.2.840.1 14 [id number] Univers 16:00:00 16:15:00 Visit Blessing Yanes HEALTH 350.1.13.10 ity of [facility] 4.2.7.2.686 Adrien as BORIS?BLEA [phone] [facility] 353 [facility] OFFICE [facility] 2022-02-02 2022-02-02 [facility] [id number] Univers 15:00:00 15:49:[address] [facility] 2022-02-02 2022-02-02 Office [facility] 1.2.840.114 [id number] Univers 15:00:00 15:49:47 Visit Blessing Herr HEALTH 350.1.13.10 i ty of [place] 4.2.7.2.686 Adrien as BORIS?BLEA [phone] [address] OFFICE [facility] 2022-02-02 2022-02-02 Outpatient [facility] [id number] Univers 14:30:00 14:30:[address] [facility] 2022-01-19 2022-01-19 Orders Doctor FERRARA 1.2.840.114 [id number] Univers 00:00:00 00:00:00 Only Unassigned, JOSESITO 350.1.13.10 ity of [place] [facility] 4.2.7.2.686 Adrien as [id number] [address] 2022-01-16 2022-01-16 Refill Deven [facility] 1.2.840.114 [id number] Univers 00:00:00 00:00:00 Dilip [place] 350.1.13.10 ity of [place] [phone] Ga dical NAL 059 [facility] 2022-01-08 2022-01-08 Case ALEM Rodriguez 1.2.840.114 [id number] Univers 00:00:00 00:00:00 Management Ashley Nemesio JOSESIT[place] 350.1.13.10 ity of [facility] 4.2.7.2.686 Adrien as [phone] [facility] [address] 2022-01-06 2022-01-07 Inpatient [facility] [id number] [place] 14:59:00 16:35:00 Mariola -[id number] Critical access hospital 2022-01-05 2022-01-05 Emergency [facility] [id number] [place] 21:17:00 22:57:00 Yissel -[id number] Critical access hospital 2022-01-04 2022-01-04 Patient Gómez, [facility] 1.2.840.114 [id number] Univers 00:00:00 00:00:00 Secure Msg Jacqui M HEALTH 350.1.13.10 ity of [place] 4.2.7.2.686 Adrien as BORIS?BLEA [phone] Ga dical [address] OFFICE [facility] 2022-01-04 2022-01-04 Patient Farzana, [facility] 1.2.840.114 [id number] Univers 00:00:00 00:00:00 Secure Msg Blessing A HEALTH 350.1.13.10 ity of [place] 4.2.7.2.686 Adrien as BORIS?BLEA [phone] Ga dical [address] OFFICE [facility] 2022-01-02 2022-01-02 Refill Farzana, [facility] 1.2.840.114 [id number] Univers 00:00:00 00:00:00 Blessing A HEALTH 350.1.13.10 i ty of [place] 4.2.7.2.686 Adrien as BORIS?BLEA [id number] Ga dical [address] OFFICE [facility] 2022-01-01 2022-01-01 Refill Farzana, [facility] 1.2.840.114 [id number] Univers 00:00:00 00:00:00 Blessing A HEALTH 350.1.13.10 i ty of [place] 4.2.7.2.686 Adrien as BORIS?BLEA [id number] [address] OFFICE [facility] 2021-12-29 2021-12-29 Refmarah [facility]GERALD [facility] 1.2.840.114 [id number] Univers 00:00:00 00:00:00 Qiangjun [place] 350.1.13.10 ity of [place] [phone] [address] 2021-12-25 2021-12-25 Orders Doctor ALEM 1.2.840.114 [id number] Univers 00:00:00 00:00:00 Only Unassigned, JOSESITO 350.1.13.10 ity of [place] [facility] 4.2.7.2.686 Adrien as [phone] [address] 2021-12-06 2021-12-06 Outpatient R [facility] [id number] Univers 11:30:00 11:30:00 BLESSING ity of [facility] 2021-12-01 2021-12-01 Refill [facility] 1.2.840.114 [id number] Univers 00:00:00 00:00:00 Blessing A HEALTH 350.1.13.10 i ty of [place] 4.2.7.2.686 Adrien as BORIS?BLEA [phone] [address] OFFICE [facility] 2021-11-30 2021-11-30 Refmarah BoltonGERALD [facility] 1.2.840.114 [id number] Univers 00:00:00 00:00:00 Qiangjun [place] 350.1.13.10 ity of [place] [phone] [address] 2021-11-30 2021-11-30 Telephone [facility] 1.2.299.853 [id number] Univers 00:00:00 00:00:00 Blessing A HEALTH 350.1.13.10 i ty of [place] 4.2.7.2.686 Adrien as BORIS?BLEA [id number] [address] OFFICE [facility] 2021-11-17 2021-11-17 Telephone [facility] 1.2.711.665 [id number] Univers 00:00:00 00:00:00 Blessing A HEALTH 350.1.13.10 i ty of [place] 4.2.7.2.686 Adrien as BORIS?BLEA [id number] [address] OFFICE [facility] 2021-11-17 2021-11-17 Telephone [facility]GER[facility] 1.2.840.114 [id number] Univers 00:00:00 00:00:00 Jany HEALTH 350.1.13.10 it y of [place] 4.2.7.2.686 Adrien as BORIS?BLEA [id number] [address] OFFICE [facility] 2021-11-14 2021-11-14 Patient [facility] 1.2.840.114 [id number] Univers 00:00:00 00:00:00 Secure Msg Jacqui M HEALTH 350.1.13.10 ity of [place] 4.2.7.2.686 Adrien as BORIS?BLEA [id number] [address] OFFICE [facility] 2021-11-14 2021-11-14 Patient [facility] 1.2.840.114 [id number] Univers 00:00:00 00:00:00 Secure Msg Jacqui M HEALTH 350.1.13.10 ity of [place] 4.2.7.2.686 Adrien as BORIS?BLEA [phone] [address] OFFICE [facility] 2021-11-14 2021-11-14 Patient [facility] 1.2.840.114 [id number] Univers 00:00:00 00:00:00 Secure Msg Blessing A HEALTH 350.1.13.10 ity of [place] 4.2.7.2.686 Adrien as BORIS?BLEA [id number] [address] OFFICE [facility] 2021-11-08 2021-11-08 Emergency X , [facility] ERT [id number] Univers 07:59:00 08:59:[address] [facility] 2021-11-08 2021-11-08 Emergency [facility] 1.2.004.163 [id number] Univers 07:59:00 08:59:00 Betty CARLOS 350.1.13.10 i ty of [place] [id number] [address] 2021-11-08 2021-11-08 Telephone [facility] 1.2.135.166 [id number] Univers 00:00:00 00:00:00 Blessing A HEALTH 350.1.13.10 i ty of [facility] 4.2.7.2.686 Adrien as BORIS?BLEA [phone] [address] MEDICAL OFFICE [facility] 2021-11-07 2021-11-07 Outpatient [facility] [id number] Univers 14:30:00 14:30:00 KAY alonso [facility] 2021-11-07 2021-11-07 Outpatient R IHSAN, [facility] [id number] Univers 14:30:00 14:30:00 KAY alonso [facility] 2021-11-07 2021-11-07 Outpatient [facility] [id number] Univers 14:30:00 14:30:00 KAY alonso [facility] 2021-11-01 2021-11-01 Outpatient [facility] [id number] Univers 12:30:00 12:30:[address] [facility] 2021-11-01 2021-11-01 Telephone [facility] 1.2.004.157 [id number] Univers 00:00:00 00:00:00 Blessing A HEALTH 350.1.13.10 i ty of [facility] 4.2.7.2.686 Adrien as BORIS?BLEA [id number] [address] MEDICAL OFFICE [facility] 2021-10-25 2021-10-25 Outpatient [facility] [id number] Univers 09:30:00 09:48:[address] [facility] 2021-10-25 2021-10-25 Office [facility] 1.2.840.114 [id number] Univers 09:30:00 09:48:15 Visit Blessing Herr HEALTH 350.1.13.10 i ty of [place] 4.2.7.2.686 Adrien as BORIS?BLEA [phone] [facility] [address] MEDICAL OFFICE [facility] 2021-10-19 2021-10-19 Telephone [facility] 1.2.023.055 [id number] Univers 00:00:00 00:00:00 Qiadeon [place] 350.1.13.10 ity of [place].2.[place]SS[place] [id number] [facility] 059 [facility] 2021-10-18 2021-10-18 Patient [facility]GERAL[facility] 1.2.840.114 [id number] Univers 00:00:00 00:00:00 Secure Msg Jacqui Beaver HEALTH 350.1.13.10 ity of [place] 4.2.7.2.686 Adrien as BORIS?BLEA [phone] [address] OFFICE [facility] 2021-09-28 2021-09-28 Outpatient [facility] [id number] Univers 15:30:00 15:30:00 [facility] 2021-09-28 2021-09-28 Outpatient R JAMES [facility] [id number] Univers 15:30:00 15:30:00 [facility] 2021-09-27 2021-09-27 Outpatient R DEANN [facility] [id number] Univers 10:40:00 10:40:00 PRINCESS [facility] 2021-09-27 2021-09-27 Telephone [facility] 1.2.773.835 [id number] Univers 00:00:00 00:00:00 Blessing Herr HEALTH 350.1.13.10 i ty of [place] 4.2.7.2.686 Adrien as BORIS?BLEA [phone] Me susanna ROWAN [address] MEDICAL OFFICE [facility] 2021-09-26 2021-09-26 Outpatient R BRENDEN [facility] [id number] Univers 14:00:00 14:00:00 [facility] 2021-09-21 2021-09-21 [facility] Crespo 1.2.840.114 [id number] Univers 15:19:00 23:59:00 Encounter Cass [place] 350.1.13.10 ity [facility] 4.2.7.2.686 Adrien as [phone] [address] 2021-09-21 2021-09-21 Outpatient R [facility] ACO [id number] Univers 00:00:00 23:59:00 CASS [facility] 2021-09-20 2021-09-20 Hydrologic Engineer Lab, Ang - Db [facility] 1.2.840.1 14 [id number] Univers 11:00:00 11:15:00 Visit Blessing Yanes 350.1.13.10 ity [facility] 4.2.7.2.686 Adrien as BORIS?BLEA [phone] Ga susanna ROWAN [address] MEDICAL OFFICE [facility] 2021-09-20 2021-09-20 Outpatient R FARZANA [facility] [id number] Univers 11:00:00 11:00:00 BLESSING [facility] 2021-09-20 2021-09-20 Office [facility] 1.2.840.114 [id number] Univers 10:30:00 11:00:00 Visit Blessing MONTEIRO 350.1.13.10 i ty of [place] 4.2.7.2.686 Adrien as BORIS?BLEA [phone] Me susanna ROWAN [address] MEDICAL OFFICE [facility] 2021-09-20 2021-09-20 Outpatient [facility] [id number] Univers 10:30:00 10:30:00 BLESSING [facility] 2021-09-20 2021-09-20 Telephone [facility] 1.2.305.689 [id number] Univers 00:00:00 00:00:00 Blessing Herr HEALTH 350.1.13.10 i ty of [place] 4.2.7.2.686 Adrien as BORIS?BLEA [id number] [address] OFFICE [facility] 2021-09-18 2021-09-18 Telephone [facility] 1.2.380.196 [id number] Univers 00:00:00 00:00:00 Dilip [place] 350.1.13.[address] [facility] 4.2.[place].2.[place] [phone] [facility] NAL [address] [place] [address] 2021-09-15 2021-09-15 Patient [facility] 1.2.840.114 [id number] Univers 00:00:00 00:00:00 Secure Msg Jacqui Beaver HEALTH 350.1.13.10 ity of [place] 4.2.7.2.686 Adrien as BORIS?BLEA [id number] [address] 2021-09-14 2021-09-14 Outpatient R CARLO [facility] [id number] Univers 13:42:35 23:59:00 [facility] 2021-09-14 2021-09-14 Outpatient R DEVEN [facility] [id number] Univers 15:00:00 15:27:51 RICARDAALANNAH cony o [facility] 2021-09-14 2021-09-14 Office [facility] 1.2.840.114 [id number] Univers 15:00:00 15:27:51 Visit Dilip [place] 350.1.13.[address] [facility] 4.2.7.2.[place] [phone] [address] 2021-09-14 2021-09-14 Outpatient R DEVEN [facility] [id number] Univers 15:00:00 15:00:00 RODOLFODEON cony o [facility] 2021-09-14 2021-09-14 Outpatient R CARLO [facility] [id number] Univers 14:00:00 14:00:[address] [facility] 2021-09-142021-09-14 Hydrologic Engineer Therapist, Adc Respiratory [facility] 1.2.840.114 [id number] Univers 12:30:00 12:45:00 Visit Thanh Gay 350.1.13. 10 ity storm [place] 4.2.7.2.686 [facility] [phone] [facility] [address] 2021-09-14 2021-09-14 Outpatient R RICCARDO [facility] [id number] Univers 12:30:00 12:30:00 [facility] 2021 2021 Outpatient R DEANN, [facility] [id number] Univers 13:40:00 13:40:00 PRINCESS [facility] 2021-09-06 2021-09-06 Telephone [facility] 1.2.992.326 [id number] Univers 00:00:00 00:00:00 Blessing Herr [facility] 350.1.13.10 i ty storm CARLOS 4.2.7.2.686 [facility] as BORIS?BLEA [phone] Ga ana paula[address] MEDICAL OFFICE BUILDING 2021-09-05 2021-09-05 Outpatient R IHSAN [facility] [id number] Univers 13:30:00 15:06:45 KAY alonso [facility] 2021-09-05 2021-09-05 Office [facility] 1.2.840.114 [id number] Univers 13:30:00 15:06:45 Visit Kay BARR 350.1.13.10 ity KAMALJIT 4.2.7.2.686 [facility] [phone] [facility] [address] [facility] 2021-09-05 2021-09-05 Outpatient Sofia BUSH [facility] [id number] Univers 13:30:00 13:30:00 KAY alonso [facility] 2021-09-05 2021-09-05 Outpatient R IHSAN [facility] [id number] Univers 13:30:00 13:30:00 KAY alonso [facility] 2021-09-04 2021-09-04 Office Carmen MAYTEIT 1.2.919.590 [id number] Univers 08:00:00 08:53:32 Visit Betty Y 350.1.13.10 i ty of [facility] 4.2.7.2.686 Adrien as BANK [id number] [facility] BLDG. [address] 2021-09-04 2021-09-04 Outpatient R CARMEN [facility] [id number] Univers 08:00:00 08:53:32 BETTY ity o f [facility] 2021-09-04 2021-09-04 Outpatient R CARMEN, [facility] [id number] Univers 08:00:00 08:53:32 BETTY ity o f [facility] 2021-09-04 2021-09-04 Outpatient R CARMEN, [facility] [id number] Univers 08:00:00 08:00:00 BETTY ity o f [facility] 2021-09-04 2021-09-04 Outpatient R CARMEN, [facility] [id number] Univers 08:00:00 08:00:00 BETTY ity o f [facility] 2021-08-31 2021-08-31 [facility] 1.2.840.114 [id number] Univers 08:07:43 23:59:00 Encounter Blessing CARLOS 350.1.13.10 ity of [place] 4.2.7.2.686 [facility] s CHINO [id number] [facility] [address] 2021-08-31 2021-08-31 [facility] 1.2.840.114 [id number] Univers 08:06:25 08:06:25 Encounter Sindy CARLOS 350.1.13.10 ity of [place] 4.2.7.2.686 [facility] s CHINO [id number] [facility] [address] 2021-08-31 2021-08-31 [facility] 1.2.840.114 [id number] Univers 08:06:11 08:06:11 Encounter Sindy CARLOS 350.1.13.10 ity of [place] 4.2.7.2.686 [facility] [id number] [facility] [address] 2021-08-31 2021-08-31 Outpatient R SINDY ONEILL [facility] [id number] Univers 08:06:11 08:06:[address] [facility] 2021-08-31 2021-08-31 [facility] [id number] Univers 08:06:11 08:06:[address] [facility] 2021-08-31 2021-08-31 [facility] 1.2.840.114 [id number] Univers 08:04:49 08:05:00 Encounter Sindy CARLOS 350.1.13.10 ity of [place] 4.2.7.2.686 [facility] [id number] [address] 2021-08-31 2021-08-31 Outpatient R SINDY ONEILL [facility] [id number] Univers 08:04:32 08:05:[address] [facility] 2021-08-31 2021-08-31 [facility] 1.2.840.114 [id number] Univers 08:04:32 08:05:00 Encounter Sindy CARLOS 350.1.13.10 ity [facility] 4.2.7.2.686 [facility] [id number] [place] [address] [address] 2021-08-31 2021-08-31 Outpatient R SINDY ONEILL [facility] [id number] Univers 00:00:00 00:00:[address] [facility] 2021-08-31 2021-08-31 Outpatient R FARZANA [facility] [id number] Univers 00:00:00 00:00:[address] [facility] 2021-08-22 2021-08-22 Orders Doctor FERRARA 1.2.840.114 [id number] Univers 00:00:00 00:00:00 Only Unassigned, JOSESITO 350.1.13.10 ity of [place] [facility] 4.2.7.2.686 Adrien as [phone] [address] 2021-08-21 2021-08-21 Outpatient R MTAOS, [facility] [id number] Univers 13:00:00 14:01:28 KORY [facility] 2021-08-21 2021-08-21 Office Matos, [facility] 1.2.840.114 [id number] Univers 13:00:00 14:01:28 Visit Kory HEALTH 350.1.13.10 it y of [place] 4.2.7.2.686 [place] a FARIA [id number] [address] OFFICE BUILDING 2021-08-21 2021-08-21 Outpatient R MATOS, [facility] [id number] Univers 13:00:00 14:01:28 [facility] 2021-08-21 2021-08-21 Office Matos, [facility] 1.2.840.114 [id number] Univers 13:00:00 14:01:28 Visit Kory HEALTH 350.1.13.10 it y of [place] 4.2.7.2.686 [place] a FARIA [id number] [address] OFFICE BUILDING 2021-08-21 2021-08-21 Telephone [facility] 1.2.332.024 [id number] Univers 00:00:00 00:00:00 Blessing A HEALTH 350.1.13.10 i ty of [place] 4.2.7.2.686 Adrien as BORIS?BLEA [id number] [address] MEDICAL OFFICE BUILDING 2021-08-21 2021-08-21 Tele[facility] 1.2.908.216 [id number] Univers 00:00:00 00:00:00 Blessing A HEALTH 350.1.13.10 i ty of [place] 4.2.7.2.686 Adrien as BORIS?BLEA [id number] [address] OFFICE BUILDING 2021-08-21 2021-08-21 Telephone [facility] 1.2.613.804 [id number] Univers 00:00:00 00:00:00 Kory HEALTH 350.1.13.10 it y of [place] 4.2.7.2.686 [place] a FARIA [id number] [address] OFFICE BUILDING 2021-08-21 2021-08-21 Telephone Carlo, [facility] 1.2.694.660 [id number] Univers 00:00:00 00:00:00 Kory HEALTH 350.1.13.10 it y of [place] 4.2.7.2.686 [place] a FARIA [phone] [address] OFFICE BUILDING 2021-08-21 2021-08-21 Telephone Farzana, [facility] [id number] Univers 00:00:00 00:00:00 Blessing A HEALTH 350.1.13.10 i ty of [place] 4.2.7.2.686 Adrien as BORIS?BLEA [phone] [address] OFFICE [facility] 2021-08-21 2021-08-21 [facility] [id number] Univers 00:00:00 00:00:00 Alfred HEALTH 350.1.13.10 it y of [place] 4.2.7.2.686 Adrien as BORIS?BLEA [phone] [address] MEDICAL OFFICE [facility] 2021-08-21 2021-08-21 Patient Doctor [facility] [id number] Univers 00:00:00 00:00:00 Secure Msg Unassigned, HEALTH 350.1.13.10 ity of [place] 4.2.7.2.686 Adrien as BORIS?BLEA [phone] [address] MEDICAL OFFICE BUILDING 2021-08-18 2021-08-18 Outpatient R CARMEN [facility] [id number] Univers 09:15:00 09:15:00 BETTY ity o f [facility] 2021-08-18 2021-08-18 Outpatient R CARMEN [facility] [id number] Univers 09:15:00 09:15:00 BETTY stephaney o f [facility] 2021-08-18 2021-08-18 Telephone [facility] [id number] Univers 00:00:00 00:00:00 Blessing A HEALTH 350.1.13.10 i ty of [facility] 4.2.7.2.686 Adrien as BORIS?BLEA [phone] [address] MEDICAL OFFICE [facility] 2021-08-17 2021-08-17 Outpatient R [facility] [id number] Univers 13:00:00 13:00:00 JANETRAFIA [facility] 2021-08-17 2021-08-17 Outpatient R [facility] [id number] Univers 13:00:00 13:00:00 JANETRAFIA [facility] 2021-08-17 2021-08-17 Outpatient R JANETRAFIA [facility] [id number] Univers 13:00:00 13:00:00 JANETRAFIA [facility] 2021-08-17 2021-08-17 Telephone [facility] [phone] [id number] Univers 00:00:00 00:00:00 Alfred HEALTH 350.1.13.10 it y [facility] 4.2.7.2.686 Adrien as BORIS?BLEA [phone] [address] OFFICE [facility] [facility] 2021-08-17 2021-08-17 [facility] 12.840.114 [id number] Univers 00:00:00 00:00:00 Blessing A HEALTH 350.1.13.10 i ty of [facility] 4.2.7.2.686 Adrien as BORIS?BLEA [id number] [address] OFFICE [facility] 2021-08-16 2021-08-16 Outpatient Sofia MATOS [facility] [id number] Univers 12:00:00 12:00:00 KORY [facility] 2021-08-16 2021-08-16 Outpatient Sofia MATOS [facility] [id number] Univers 12:00:00 12:00:00 KORY [facility] 2021-08-16 2021-08-16 Outpatient R CARLO [facility] [id number] Univers 12:00:00 12:00:[address] [facility] 2021-08-16 2021-08-16 Telephone [facility] 1.2.840.114 [id number] Univers 00:00:00 00:00:00 Soha CARLOS 350.1.13.10 i ty of [place] PROF[place] [id number] [address] 2021-08-14 2021-08-14 Outpatient R SINDY ONEILL [facility] [id number] Univers 15:18:48 23:59:[address] [facility] 2021-08-14 2021-08-14 Outpatient R SINDY ONEILL [facility] [id number] Univers 15:18:48 23:59:00 SINDY ONEILL [facility] 2021-08-10 2021-08-10 Outpatient R JAMES [facility] [id number] Univers 15:00:00 15:45:[address] [facility] 2021-08-10 2021-08-10 Office [facility] 1.2.561.566 [id number] Univers 15:00:00 15:45:32 Visit Soha CARLOS 350.1.13.10 i ty of [place] [id number] [address] 2021-08-10 2021-08-10 Outpatient R JAMES [facility] [id number] Univers 15:00:00 15:45:[address] [facility] 2021-08-10 2021-08-10 [facility] [id number] Univers 15:00:00 15:45:[address] [facility] 2021-08-10 2021-08-10 Outpatient R JAMES [facility] [id number] Univers 15:00:00 15:00:[address] [facility] 2021-08-092021-08-09 Refill Ihsan [facility] 1.2.840.114 [id number] Univers 00:00:00 00:00:00 Kay Francis MULTISPEC 350.1.13.10 ity of [place] CENTER [id number] [facility] AND [address] DIABETES CLINIC 2021-08-09 2021-08-09 Refill Ihsan [facility] 1.2.840.114 [id number] Univers 00:00:00 00:00:00 Kay Francis MULTISPEC 350.1.13.10 ity of [place] CENTER [id number] [facility] AND [address] DIABETES CLINIC 2021-08-09 2021-08-09 Refill Doctor [facility] 1.2.840.114 [id number] Univers 00:00:00 00:00:00 Unassigned, PRIMARY 350.1.13.10 ity of [place] CARE [place].2.7.2.[place] [facility] [id number] [address] 2021-08-04 2021-08-04 Patient Farzana, [facility] 1.2.840.114 [id number] Univers 00:00:00 00:00:00 Secure Msg Blessing A HEALTH 350.1.13.10 ity of [place] 4.2.7.2.686 Adrien as BORIS?BLEA [id number] [address] MEDICAL OFFICE BUILDING 2021-08-04 2021-08-04 Patient Farzana, [facility] 1.2.840.114 [id number] Univers 00:00:00 00:00:00 Secure Msg Blessing A HEALTH 350.1.13.10 ity of [place] 4.2.7.2.686 Adrien as BORIS?BLEA [id number] [address] MEDICAL OFFICE [facility] 2021-08-02 2021-08-02 Office MELIZA Oneill 1.2.418.776 [id number] Univers 11:30:00 11:30:00 Visit Sindy Y HEALTH 350.1.13.10 i ty of CLINICS 4.2.7.2.686 [place] [id number] [facility] [address] 2021-08-02 2021-08-02 Outpatient R SINDY ONEILL [facility] [id number] Univers 11:30:00 11:24:[address] [facility] 2021-07-28 2021-07-28 [facility] [id number] Univers 13:00:00 13:00:00 SINDY ONEILL [facility] 2021-07-26 2021-07-26 [facility] [id number] Univers 15:20:22 23:59:[address] [facility] 2021-07-26 2021-07-26 [facility] 1.2.840.114 [id number] Univers 15:00:00 23:59:00 Encounter Blessing CARLOS 350.1.13.10 ity [facility] [place].2.7.2.[place] [id number] [facility] [address] 2021-07-21 2021-07-21 Outpatient R [facility] [id number] Univers 14:30:00 15:16:[address] [facility] 2021-07-19 2021-07-19 Outpatient [facility] [id number] Univers 09:00:00 09:00:[address] [facility] 2021-07-14 2021-07-14 Outpatient R [facility] [id number] Univers 10:00:00 11:07:[address]ón[address] [facility] 2021-07-14 2021-07-14 Orders Doctor FERRARA 1.2.840.114 [id number] Univers 00:00:00 00:00:00 Only Unassigned, JOSESITO 350.1.13.10 ity of [facility] 4.2.7.2.686 Adrien [id number] [facility] [address] 2021-07-12 2021-07-12 Outpatient R JERMAINE [facility] [id number] Univers 10:00:00 10:00:[address] [facility] 2021-02-12 2021-02-12 Outpatient PRIV PRIV [id number] 1-2 [facility] 00:00:00 00:00:00 [id number] Medica l 2021-02-12 2021-02-12 Outpatient PRIV PRIV [id number] 1-2 [facility] 00:00:00 00:00:00 [id number] Medica l 2020-12-06 2020-12-06 Outpatient PERLA BLOCK [id number] Perla 10:45:00 10:45:00 ELLIOT Seanca obrien 2020-07-30 2020-07-30 Laboratory Lab, Adc Fam Pob I [facility] 1.2. 840.114 [id number] Univers 16:14:44 16:34:44 [facility] 350.1.13.10 ity [facility] 4.2.7.2.686 Adrien corina Bustamante [id number] Ga dical [address] Office Building One 2020-07-30 2020-07-30 Outpatient R [facility] [id number] Univers 16:00:00 16:00:00 [facility] 2020-07-28 2020-07-28 Patient Abdon [facility] 1.2.840.114 [id number] Univers 00:00:00 00:00:00 Outreach Joel [facility] 350.1.13.10 i ty of [facility] 4.2.7.2.686 Maritza GUPTA [id number] Ga dic[address] 2020-05-04 2020-05-04 Emergency ER OWO, TOKS [facility] [id number] [place] 16:03:00 18:07:00 -[id number] Critical access hospital 2020-05-01 2020-05-01 Emergency ER GONZALEZE, [facility] [id number] [place] 14:12:00 18:16:00 BAO -[id number] Critical access hospital 2020-04-20 2020-04-21 Emergency ER MEDINA, [facility] [id number] [place] 22:53:00 00:07:00 WAS -[id number] Critical access hospital 2020-04-04 2020-04-04 Ref[facility] 1.2.840.114 [id number] 00:00:00 00:00:00 Leandro Deras PRIMARY 350.1.13.10 CARE 4.2.7.2.686 PAVILLION [id number] 389 2020-04-04 2020-04-04 Refill [facility] 1.2.840.114 [id number] Univers 00:00:00 00:00:00 Leandro Braeden PRIMARY 350.1.13.10 ity of CARE 4.2.7.2.686 Maritza weston BERNAON [id number] [address] 2020-03-18 2020-03-18 Outpatient FERGUSON_JO MEHOP MEHOP [place]14 [place] 00:00:00 00:00:00 HN 1106 [facility] 2020-03-14 2020-03-14 Outpatient FERGUSON_JO MEHOP MEHOP [place]14 [place] 04:45:00 04:45:00 HN 1102 [facility] 2020-02-29 2020-02-29 Outpatient R MORALES, [facility] [id number] Univers 08:45:00 08:45:00 BETTY pickering [facility] 2020-02-26 2020-02-26 Emergency ER HAFSA SAEED [facility] [id number] [place] 10:15:00 12:20:00 -[id number] Critical access hospital 2020-02-26 2020-02-26 Outpatient FERGUSON_JO MEHOP MEHOP 814 [place] 09:48:00 09:48:00 HN 1016 [facility] 2020-02-25 2020-02-25 Outpatient FERGUSON_JO MEHOP MEHOP 814 [place] 01:22:00 01:22:00 HN 1015 [facility] 2020-02-19 2020-02-20 Emergency ER AVALOS, [facility] [id number] [place] 21:17:00 03:38:00 DOMINGO -[id number] Critical access hospital 2020-02-17 2020-02-17 Outpatient R ZULEIMA BELIA [facility] [id number] Univers 11:00:00 11:00:00 ity of [facility] 2020-02-10 2020-02-10 Emergency ER OWO, TOKMicheline [facility] [id number] [place] 16:26:00 19:59:00 -[id number] Critical access hospital 2019-12-31 2019-12-31 Emergency ER OWO, HAFSA [facility] [id number] [place] 17:19:00 19:23:00 -[id number] Critical access hospital 2019-11-26 2019-11-26 Emergency ER SAIFI, [facility] [id number] [place] 09:27:00 11:17:00 [facility] -[id number] Critical access hospital 2019-11-20 2019-11-20 Telephone [facility] 1.2.389.695 [id number] 00:00:00 00:00:00 Leandro Braeden PRIMARY 350.1.13.10 CARE 4.2.7.2.686 PAVILLION [id number] 389 2019-11-20 2019-11-20 [facility] 1.2.241.[id number] [facility] 00:00:00 00:00:00 Leandro Braeden PRIMARY 350.1.13.10 ity of C[place] 4.2.7.2.[place] PAV[place]ION [id number] Ga dic[address] 2019-11-13 2019-11-13 [facility] 1.2.283.159 [id number] 00:00:00 00:00:00 Leandro Braeden PRIMARY 350.1.13.10 CARE 4.2.7.2.686 PAVILLION [id number] 389 2019-11-13 2019-11-13 [facility]phone [facility] 1.2.984.[id number] [facility] 00:00:00 00:00:00 Leandro Deras PRIMARY 350.1.13.10 ity of [place] 4.2.[place].2.[place] [id number] [address] 2019-10-28 2019-10-28 Outpatient R CARLOZ, [facility] [id number] [facility] 10:40:00 10:40:00 ATTENDING ity of [facility] 2019-09-29 2019-09-29 Patient Doctor [facility] 1.2.840.114 [id number] 00:00:00 00:00:00 Secure Msg Unassigned, PRIMARY 350.1.13.10 [place] CARE 4.2.7.2.686 PAVILLION [id number] 390 2019-09-29 2019-09-29 Patient Doctor [facility] 1.2.840.114 [id number] Univers 00:00:00 00:00:00 Secure Msg Unassigned, PRIMARY 350.1.13.10 ity of [place] CARE 4.2.7.2.[place]AV[place] [id number] [address] 2019-09-15 2019-09-15 Telephone [facility] 1.2.138.484 [id number] 00:00:00 00:00:00 Leandro Deras PRIMARY 350.1.13.10 CARE 4.2.7.2.686 PAVILLION [id number] 389 2019-09-15 2019-09-15 Telephone [facility] 1.2.187.[id number] [facility] 00:00:00 00:00:00 Leandro Deras PRIMARY 350.1.13.10 ity of [place] 4.2.7.2.[place]ION [id number] [address] 2019-09-10 2019-09-10 Hydrologic Engineer Vtc-Lab [facility] 1.2.840.114 [id number] 12:34:34 12:44:34 Visit MULTISPEC 350.1.13.10 IALTY 4.2.7.2.686 CENTER [id number] AND JAIRO [facility] DIABETES CLINIC 2019-09-10 2019-09-10 Hydrologic Engineer Vtc-Lab [facility] 1.2.840.[id number] [facility] 12:34:34 12:44:34 Visit Samir Conner MULTISPEC 350.1.13.10 ity of [place] 4.2.7.2.686 [place] CENTER [id number] [facility] AND GILL [address] [place] [address] DIABETES CLINIC 2019-09-10 2019-09-10 Outpatient R ALISAMIR [facility] [id number] Univers 12:40:00 12:40:[address] [facility] 2019-08-18 2019-08-18 Patient Jesse [facility] 1.2.840.114 [id number] 00:00:00 00:00:00 Secure Msg Leandro Deras PRIMARY 350.1.13.10 CARE 4.2.7.2.686 PAVILLION [id number] 390 2019-08-18 2019-08-18 Patient Jesse [facility] 1.2.840.114 [id number] Univers 00:00:00 00:00:00 Secure Msg Leandro Deras PRIMARY 350.1.13.10 ity of C[place] 4[place]2.7.2.[place] [id number] [address] 2019-08-17 2019-08-17 Patient Doctor [facility] 1.2.840.114 [id number] 00:00:00 00:00:00 Secure Msg Unassigned, PRIMARY 350.1.13.10 [place] CARE 4.2.7.2.686 PAVILLION [id number] 389 2019-08-17 2019-08-17 Patient Doctor [facility] 1.2.840.114 [id number] Univers 00:00:00 00:00:00 Secure Msg Unassigned, PRIMARY 350.1.13.10 ity of [place] CARE [place].2.[place].2.[place] [id number] [facility] [address] 2019-08-14 2019-08-14 Outpatient R UNKNOWN, [facility] [id number] Univers 12:10:00 12:10:[address] [facility] 2019-08-14 2019-08-14 Hydrologic Engineer Pcp-Lab [facility] 1.2.840.114 [id number] 11:02:02 11:12:02 Visit PRIMARY 350.1.13.10 CARE 4.2.7.2.686 PAVILLION [id number] 366 2019-08-14 2019-08-14 Hydrologic Engineer Pcp-Lab [facility] 1.2.840.114 [id number] Univers 11:02:02 11:12:02 Visit Unknown, Attending PRIMARY 350.1.13.10 ity of [place], [place]ra[place] CARE 4.2.7.2.686 [place] PAVILLION [id number] [facility] [address] 2019-08-12 2019-08-12 [facility]ic [facility] 1.2.840.114 [id number] 14:32:03 15:02:03 ne Visit Salvatore PRIMARY 350.1.13.10 CARE 4.2.7.2.686 PAVILLION [id number] 390 2019-08-12 2019-08-12 Telemedic [facility] 1.2.840 .114 [id number] Univers 14:32:03 15:02:03 ne Visit Unknown, Attending PRIMARY 350.1.13.1 0 ity of [place] 4.2.7.2.686 [place] [id number] [facility] [address] 2019-08-12 2019-08-12 Outpatient R UNKNOWN, [facility] [id number] Univers 14:50:00 14:50:00 ATTENDING ity of [facility] 2019-08-12 2019-08-12 Telephone [facility] 1.2.841.739 [id number] 00:00:00 00:00:00 Leandro Deras PRIMARY 350.1.13.10 CARE 4.2.7.2.686 PAVILLION [id number] 389 2019-08-12 2019-08-12 Telephone [facility] 1.2.918.[id number] [facility] 00:00:00 00:00:00 Leandro Deras PRIMARY 350.1.13.10 ity of C[place]2.7.2.686 [place]AV[place] [id number] [facility] [address] 2019-08-07 2019-08-10 [facility] Ihsan, [facility] 1.2.840.114 [id number] 08:31:45 15:00:40 ne Visit Kay BARR 350.1.13.10 IALTY 4.2.7.2.686 CENTER [id number] [facility] [place] 056 [facility]ES [facility] 2019-08-07 2019-08-10 [facility] 1.2.840.114 [id number] Univers 08:31:45 15:00:40 ne Visit Kay Francis MULTISPEC 350.1.13.10 ity of [place] 4.2.7.2.686 [place] BAKER [id number] [facility] AND GILL [address] DIABETES CLINIC 2019-08-07 2019-08-07 Outpatient R IHSAN, [facility] [id number] Univers 10:30:00 10:30:00 KAY donnelly o f [facility] 2019-08-04 2019-08-04 Outpatient R ELIZABETH [facility] [id number] Univers 11:00:00 11:00:00 LIU ity of [facility] 2019-08-04 2019-08-04 Telemedici Johan Alexander UNIVERS 1.2.84 0.114 [id number] Univers 07:35:13 08:05:13 ne Visit Trell Villagomez HEALTH 350.1.13 .10 ity of [place] Ny [facility] 4.2.7.2.68 6 [place] [id number] [facility] [address] 2019-08-04 2019-08-04 Telephone Pavangiea, [facility]ERS[facility] 1.2.840.114 [id number] Univers 00:00:00 00:00:00 Johan HEALTH 350.1.13.10 i ty of CLINICS 4.2.7.2.[place] [id number] [facility] [address] 2019-08-04 2019-08-04 Orders Doctor ALEM 1.2.840.114 [id number] Univers 00:00:00 00:00:00 Only Unassigned, JOSESITO 350.1.13.10 ity of [place] [facility] 4.2.7.2.686 Adrien as [id number] [facility] [address] 2019-08-03 2019-08-03 Refill [facility] 1.2.840.114 [id number] Univers 00:00:00 00:00:00 Rosanne MULTISPEC 350.1.13.10 ity of [place]as THOMASY 4.2.7.2.686 [facility] [id number] [facility] AND [place] [address] [place] [address] DIABETES CLINIC 2019-08-03 2019-08-03 Refmarah [facility]AL[facility] 1.2.840.114 [id number] Univers 00:00:00 00:00:00 Rosanne MULTISPEC 350.1.13.10 ity of [place] Rodriguez IALTY 4.2.7.2.686 [facility] [id number] [facility] AND [address] DIABETES CLINIC 2019-08-03 2019-08-03 Telephone [facility] 1.2.442.625 [id number] Univers 00:00:00 00:00:00 Leandro Deras PRIMARY 350.1.13.10 ity of C[place] 4.2.7.2.[place] [id number] [facility] [address] 2019-08-03 2019-08-03 Telephone [facility] 1.2.840.114 [id number] Univers 00:00:00 00:00:00 Kay Francis MULTISPEC 350.1.13.10 ity of IALTY 4.2.7.2.686 [facility] [place] [phone] [facility] AND [address] DIABETES [facility] 2019-07-20 2019-07-20 Emergency ER MERRICK, [facility] [id number] [place] 20:16:00 21:34:00 SHANNEN -[id number] Critical access hospital 2019-06-23 2019-06-23 Emergency ER JAZMIN, [facility] [id number] [place] 15:06:00 17:30:00 ALYSSA -[id number] Critical access hospital 2019-06-05 2019-06-05 Emergency ER SAUNDRAMADINARajan, [facility] [id number] [place] 16:39:00 19:48:00 BAO -[id number] Critical access hospital 2019-06-05 2019-06-05 Telephone Puthenparam UNIVERSIT .2.840.11 [id number] Univers 00:00:00 00:00:00 Juan whiting 350.1.13.10 ity of NATIONAL 4.2.7.2.686 Adrien as BANK [id number] [facility] BLDG. [address] 2019-05-19 2019-05-19 Clinic Puthenparam [facility] 1.2.840.114 [id number] Univers 00:00:00 00:00:00 Assessment henokJuan Y 350.1.13.10 ity of NATIONAL 4.2.7.2.686 Adrien as [facility] [id number] [facility] BLDG. [address] 2019-03-05 2019-03-05 Outpatient Young_J MMG [facility] [id number] [place] 03:44:00 03:44:00 024 Medical Group 2019-03-01 2019-03-01 Emergency ER TRELL, [facility] [id number] [place] 15:15:00 18:55:00 PATI [id number] Critical access hospital 2019-01-26 2019-01-26 Telephone Jesse [facility] 1.2.009.390 [id number] Univers 00:00:00 00:00:00 Leandro Deras PRIMARY 350.1.13.10 ity of [facility] 4.2.7.2.686 [facility] BERNA [id number] Ga dical [address] 2019-01-21 2019-01-21 Emergency ER RUPERT, [facility] [id number] [place] 17:43:00 20:38:00 BAO -[id number] Critical access hospital 2018-12-30 2018-12-30 Office Elver Cyr [facility] 1.2 .840.114 [id number] Univers 14:33:52 16:12:24 Visit Unknown, Attending PRIMARY 350.1.13.10 ity of Belia Metz [facility] 4.2.7.2.686 [facility] [id number] Ga dical [address] 2018-12-12 2018-12-12 Orders Doctor ALEM 1.2.840.114 [id number] Univers 00:00:00 00:00:00 Only Unassigned, JOSESITO 350.1.13.10 ity of [place] [facility] 4.2.7.2.686 Adrien as [id number] [facility] [address] 2018-12-05 2018-12-05 Transition Blaine Longo 1.2.840.114 [id number] Univers 00:00:00 00:00:00 of Care Nicky Hicks 350.1.13.10 it y of [place]2.7.2.686 [place] [id number] [facility] [address] 2018-12-02 2018-12-04 Hospital Mary Howell 1.2.840.114 [id number] Univers 00:29:00 19:45:00 Encounter ToritoEllieMikey holden 35 0.1.13.10 ity of Emiliano Cheung [facility] 4.2.7.2.686 [place] [id number] [facility] [address] 2018-12-04 2018-12-04 Telephone Alvarez [facility] 1.2.840.114 [id number] Univers 00:00:00 00:00:00 [facility] 350.1.13.10 it y of [place] Rodriguez [place] 4.2.7.2.686 [facility] [id number] [facility] Primary & [address] Specialty Care 2018-12-02 2018-12-02 Orders Doctor ALEM 1.2.840.114 [id number] Univers 00:00:00 00:00:00 Only Unassigned, JOSESITO 350.1.13.10 ity of [place] [facility] 4.2.7.2.686 Adrien as [id number] [facility] [address] 2018-11-29 2018-12-01 Inpatient ER Elina, [facility] MED [id number] [place] 19:48:00 23:00:00 Sean -[id number] Critical access hospital 2018-11-28 2018-11-29 Emergency ER MERRICK, [facility] [id number] [place] 20:53:00 01:14:00 SHANNEN -[id number] Critical access hospital 2018-04-03 2018-04-03 Emergency ER JAZMIN [facility] [id number] [place] 19:12:00 21:48:00 ALYSSA -[id number] Critical access hospital 2017-07-31 2017-07-31 Emergency E MCSETX MED [id number] Medical 19:16:00 19:16:00 [facility] 2017-05-30 2017-05-30 AURELIA [facility] 3 [id number] [place] 13:00:00 13:00:00 t; Jinny FONTAINE Ph greg Reid M.D. 2017-04-23 2017-04-23 Tabatha KATELYN [facility] [id number] [place] 09:15:00 09:15:00 t; Jinny FONTAINE Ph greg Reid M.D. 2013-08-09 2013-08-09 Emergency ER BA, RICHARD [facility] [id number] [place] 19:09:00 22:27:00 -[id number] Critical access hospital 2013-05-11 2013-05-11 Emergency ER MEDINA, [facility] [id number] 61 [place] 02:30:00 05:46:00 WAS -[id number] Critical access hospital 2013-04-18 2013-04-18 Emergency ER UGORJI, [facility] [id number] 61 [place] 01:08:00 04:45:00 CLEDARRICK -[id number] Critical access hospital 2013-03-26 2013-03-26 Outpatient EL D'ANN, [facility] [id number] [place] 09:38:00 09:38:00 MATT -[id number] Critical access hospital 2013-03-09 2013-03-09 Emergency ER DONOVAN, [facility] [id number] [place] 19:03:00 20:05:00 MIKAELA -[id number] Critical access hospital 2012-12-04 2012-12-06 Inpatient ER D'ANN, [facility] [id number] 61 [place] 21:36:00 14:11:00 MATT -[id number] Critical access hospital 2012-12-01 2012-12-02 Emergency ER BA, RICHARD [facility] [id number] [place] 22:29:00 01:22:00 -[id number] Critical access hospital 2012-11-27 2012-11-27 Outpatient UR TARSHA, [facility] [id number] [place] 10:49:00 10:49:00 STEVEN -[id number] Critical access hospital 2012-11-18 2012-11-18 Emergency ER UGORJI, [facility] [id number] [place] 12:50:00 15:39:00 CLEMENT -[id number] Critical access hospital 2012-08-01 2012-08-01 Emergency ER UGORTREY, [facility] [id number] [place] 17:26:00 20:49:00 CLEMENT -[id number] Critical access hospital 2012-07-19 2012-07-19 Emergency ER JERSEY, [facility] [id number] [place] 14:19:00 15:44:00 [facility] -[id number] Critical access hospital 2012-07-10 2012-07-10 Outpatient EL Franko, [facility] [id number] [place] 07:04:00 07:04:00 Talat -[id number] Critical access hospital 2012-06-06 2012-06-06 Outpatient EL D'ANN, [facility] [id number] [place] 13:17:00 13:17:00 MATT -[id number] Critical access hospital 2012-06-05 2012-06-06 Emergency ER UGORTREY, [facility] [id number] [place] 20:38:00 02:50:00 CLEDARRICK -[id number] Critical access hospital 2012-05-28 2012-06-01 Inpatient EL D'ANN, [facility] [id number] [place] 17:00:00 10:27:00 MATT -[id number] Critical access hospital 2012-03-09 2012-03-09 Emergency ER Leroy, [facility] [id number] [place] 21:25:00 22:48:00 Driss -[id number] Critical access hospital 2012-02-29 2012-02-29 Outpatient EL D'ANN, [facility] [id number] [place] 15:16:00 15:16:00 MATT -[id number] Critical access hospital 2012-01-12 2012-01-12 Emergency ER UGORJI, [facility] [id number] [place] 19:42:00 23:53:00 CLEDARRICK -[id number] Critical access hospital 2011-08-14 2011-08-14 Outpatient EL D'ANN, [facility] [id number] [place] 11:58:00 11:58:00 MATT -[id number] Critical access hospital 2011-04-26 2011-04-26 Outpatient EL D'ANN, [facility] [id number] [place] 14:29:00 14:29:00 [id number] Critical access hospital 2010-10-18 2010-10-19 Emergency ER GERMANIA, [facility] [id number] [place] 20:52:00 01:50:00 MERGED WITH [facility] -[id number] Critical access hospital 2010-10-13 2010-10-16 Inpatient EL D'ANN, [facility] [id number] [place] 18:28:00 20:15:00 [id number] Critical access hospital 2010-09-12 2010-09-14 Inpatient EL D'ANN, [facility] [id number] [place] 12:12:00 13:45:00 [id number] Critical access hospital Results Test Description Test Time Test Comments Results Result Comments Source POC-Glucose meter 2022-11-25 08:26:55 Test Item Value Reference Range Interpretation Comme nts POC-Glucose Meter (test code = 141 mg/dL 70-110 H : TESTED AT [place] [address]) [facility], [facility] 30: Construction Flagger/Techni olesya ID = [id number] for Wimbley, Tahja Lab Interpretation (test code = Abnormal 07391-3) [facility]-Glucose [id number] 08:26:55 Test Item Value Reference Range Interpretation Comments POC-Glucose Meter (test 141 mg/dL 70-110 H : TE STED AT [facility] code = 1538) [address] [place] [address], [facility] 30: Construction Flagger/Techni olesya ID = [id number] for Wimbley, Tahja Lab Interpretation (test Abnormal code = 23107-8) [facility]-Glucose [id number] 08:26:55 Test Item Value Reference Range Interpretation Comments POC-Glucose Meter (test 141 mg/dL 70-110 H : TE STED AT [facility] code = 1538) [address] [place] [address], [facility] 30: Construction Flagger/Techni olesya ID = [id number] for Wimbley, Tahja Lab Interpretation (test Abnormal code = 63280-3) [facility] [id number] 08:26:55 Test Item Value Reference Range Interpretation Comments POC-GLUCOSE METER 141 mg/dL 70-110 H : TESTED A T [facility] 6720 (BEAKER) (test code = [place], 1538) [address]: Construction Flagger/Techni olesya ID = [id number] for Cinda Cool [id number] 06:43:25 Test Item Value Reference Range Interpretation Comments MAGNESIUM (BEAKER) (test code = 2.2 mg/dL 1.6-2.6 627) Construction Flagger ID - [id number] 06:43:25 Test Item Value Reference Range Interpretation Comments PHOSPHORUS (BEAKER) (test code = 2.9 mg/dL 2.3-4.7 604) Construction Flagger ID - MARCOBASIC METABOLIC [id number] 06:43:24 Test Item Value Reference Range Interpretation [...] eGF R is based on the CKD-EPI 2021 equation that d oes not use a race coefficientEsti mated GFR is not as accur ate as Creatinine Velma augustine in predicting glom erular filtration rate . Estimated GFR is not appl icable for dialysis patien ts Construction Flagger ID - MARCOCBC W/PLT COUNT & AUTO [id number] 06:01:36 Test Item Value Reference Range Interpretation [...] PERCENT (BEAKER) (test code = 2801) POCT-GLUCOSE [id number] 22:23:26 Test Item Value Reference Range Interpretation Comments POC-GLUCOSE METER 186 mg/dL 70-110 H : TESTED A T [facility] 6720 (BEAKER) (test code = L[place] Black [place], 1538) [address]: Construction Flagger/Techni olesya ID = [id number] for Nicole Esquivel HIGH SENSITIVITY TROPONIN [id number] 19:54:32 Test Item Value Reference Range Interpretation Comments HIGH SENSITIVITY TROPONIN I (test < pg/ml <=35 code = 6100417) The PATIENT ASSISTANT STAT High Sensitivity Troponin-I results should be used in conjunction with other diagnostic information such as ECG, clinical observations and information, and patient symptoms to aid inthe diagnosis of PR.BASIC METABOLIC [id number] 19:44:55 Test Item Value Reference Range Interpretation [...] not appl icable for dialysis patien ts [id number] 19:44:55 Test Item Value Reference Range Interpretation Comments MAGNESIUM (BEAKER) (test code = 2.1 mg/dL 1.6-2.6 627) [id number] 19:44:55 Test Item Value Reference Range Interpretation Comments PHOSPHORUS (BEAKER) (test code = 2.0 mg/dL 2.3-4.7 L 604) CBC W/PLT COUNT & AUTO [id number] 19:27:50 Test Item Value Reference Range Interpretation [...] code = 2801) CT BRAIN WITHOUT IV [id number] 18:49:08 [facility] 1970 Sex: MCT BRAIN [...] Signed By: Sary Maradiaga11/24/2022 18:51 CDTWorkstation Name: [id number]- GLUCOSE [id number] 17:16:25 Test Item Value Reference Range Interpretation Comments POC-GLUCOSE METER 234 mg/dL 70-110 H : TESTED A T [facility] 6720 (Monster ArtsAKER) (test code = [facility], 153) [address]: Construction Flagger/Techni olesya ID = [id number] for Jean-Pierre Duff POCT-GLUCOSE [id number] 12:48:27 Test Item Value Reference Range Interpretation Comments POC-GLUCOSE METER 153 mg/dL 70-110 H : TESTED A T [facility] 6720 (BEAKER) (test code = [facility], 153) [address]: Construction Flagger/Techni olesya ID = [id number] for Mey Dos Santos POCT-GLUCOSE [id number] 08:34:06 Test Item Value Reference Range Interpretation Comments POC-GLUCOSE METER 199 mg/dL 70-110 H : TESTED A T [facility] 6720 (BEAKER) (test code = [facility], 153) [address]: Construction Flagger/Techni olesya ID = [id number] for Melissa gibsonon Triwanda CBC W/PLT COUNT & AUTO [id number] 05:53:53 Test Item Value Reference Range Interpretation Comments WHITE BLOOD CELL COUNT 10.6 K/ L 3.5-10.5 H (BEAKER) (test code = 775) RED BLOOD CELL COUNT 5.16 M/ L 4.63-6.08 (AKER) (test code = 761) HEMOGLOBIN (BEAKER) 15.2 [...] (BEAKER) (test code = 2801) BASIC METABOLIC [id number] 05:46:34 Test Item Value Reference Range Interpretation [...] decreased 60-89 G3a Mildl y to moderately 45- 59 G3b Moderately to s everely 30-44 G4 Severl y decreased 15-29 G5 Kidney failure <15Reported eGF R is based on the CKD-EPI 2020 equation that d oes not use a race coefficientEsti mated GFR is not as accur ate as Creatinine Velma augustine in predicting glom erular filtration rate . Estimated GFR is not appl icable for dialysis patien ts [id number] 05:46:34 Test Item Value Reference Range Interpretation Comments MAGNESIUM (BEAKER) (test code = 2.1 mg/dL 1.6-2.6 627) [id number] 05:46:34 Test Item Value Reference Range Interpretation Comments PHOSPHORUS (BEAKER) (test code = 2.6 mg/dL 2.3-4.7 604) POCT-GLUCOSE [id number] 22:01:37 Test Item Value Reference Range Interpretation Comments POC-GLUCOSE METER 169 mg/dL 70-110 H : TESTED A T [facility] 6720 (BEAKER) (test code = LALO Black [facility], 1538) [address]: Construction Flagger/Techni olesya ID = [id number] for Nicole Esquivel POCT-GLUCOSE [id number] 18:12:40 Test Item Value Reference Range Interpretation Comments POC-GLUCOSE METER 231 mg/dL 70-110 H : TESTED A T [facility] 6720 (BEAKER) (test code = [facility], 1538) [address]: Construction Flagger/Techni olesya ID = [id number] for Jean-Pierre Duff POCT-GLUCOSE [id number] 13:10:52 Test Item Value Reference Range Interpretation Comments POC-GLUCOSE METER 183 mg/dL 70-110 H : TESTED A T [facility] 6720 (BEAKER) (test code = [facility], 1538) [address]: Construction Flagger/Techni olesya ID = [id number] for Mey Dos Santos POCT-GLUCOSE [id number] 08:23:00 Test Item Value Reference Range Interpretation Comments POC-GLUCOSE METER 163 mg/dL 70-110 H : TESTED A T [facility] 6720 (BEAKER) (test code = [facility], 1538) [address]: Construction Flagger/Techni olesya ID = [id number] for Mey Dos Santos [id number] 06:47:03 Test Item Value Reference Range Interpretation Comments MAGNESIUM (BEAKER) (test code = 1.9 mg/dL 1.6-2.6 627) Construction Flagger ID - ADMINOperator ID - [id number] 05:46:13 Test Item Value Reference Range Interpretation Comments PHOSPHORUS (BEAKER) (test code = 2.7 mg/dL 2.3-4.7 604) Construction Flagger ID - ADMINCBC W/PLT COUNT & AUTO [id number] 04:58:21 Test Item Value Reference Range Interpretation [...] PERCENT (BEAKER) (test code = 2801) POCT-GLUCOSE [id number] 21:08:50 Test Item Value Reference Range Interpretation Comments POC-GLUCOSE METER 170 mg/dL 70-110 H : TESTED A T [facility] 6720 (BEAKER) ([facility], = 1538) [address]: Construction Flagger/Techni olesya ID = [id number] for Thanh Ruiz POCT-GLUCOSE [id number] 17:45:46 Test Item Value Reference Range Interpretation Comments POC-GLUCOSE METER 235 mg/dL 70-110 H : TESTED A T [facility] 6720 (BEAKER) (test code = LALO Black [facility], 1538) [address]: Construction Flagger/Techni olesya ID = [id number] for MAUREEN RAMIREZ [id number] 14:58:42 Test Item Value Reference Range Interpretation Comments RPR SCREEN (TIFFANY) (test code = Nonreactive Nonreactive 420) CT BRAIN WITHOUT IV [id number] 12:27:04 [facility] : 1970 Sex: MCT BRAIN [...] Signed By: Sary Maradiaga11/22/2022 12:29 CDTWorkstation Name: [id number] METER 2022-11-22 11:32:35 Test Item Value Reference Range Interpretation Comments POC-GLUCOSE METER 158 mg/dL 70-110 H : TESTED A T [facility] 6720 ([facility]) (test code = [facility], 1538) [address]: Construction Flagger/Techni olesya ID = [id number] for Julio César Mae HEMOGLOBIN [id number] 11:17:17 Test Item Value Reference Range Interpretation Comments HEMOGLOBIN A1C 8.1 % See_Comment H [Automated m essage] ELECTROPHORESIS ([facility]) The system which (test code = 3811) generated this result transmitted ref erence range: <=5.6%. The reference range was not used to int erpret this result as normal/abnormal . "The A1c is measured using a NGS-certified method. HbA1c value equal to or greater than 6.5% as thediagnosis cutoff for diabetes. An HbA1c value of 5.7- 6.4% indicates increased risk for diabetes (prediabetes)."Construction Flagger ID - ADMPOCT- GLUCOSE [id number] 08:13:06 Test Item Value Reference Range Interpretation Comments POC-GLUCOSE METER 143 mg/dL 70-110 H : TESTED A T [facility] 6720 (BEAKER) (test code = [facility] Sofia [facility], 1538) [address]: Construction Flagger/Techni olesya ID = [id number] for DAKOTA SARAHALEM JOSEPH CBC W/PLT COUNT & AUTO [id number] 04:17:53 Test Item Value Reference Range Interpretation [...] GRANULOCYTES-RELATIVE PERCENT (BEAKER) (test code = 2801) [id number] 04:06:03 Test Item Value Reference Range Interpretation Comments MAGNESIUM (BEAKER) (test code = 1.6 mg/dL 1.6-2.6 627) Construction Flagger ID - VRCFEZBQPMZN8320-54-03 04:06:03 Test Item Value Reference Range Interpretation Comments PHOSPHORUS (BEAKER) (test code = 3.7 mg/dL 2.3-4.7 604) Construction Flagger ID - MMBASIC METABOLIC [id number] 04:06:02 Test Item Value Reference Range Interpretation [...] not appl icable for dialysis patien ts Construction Flagger ID - MMCT BRAIN WITHOUT IV [id number] 01:51:30 [facility] : 1970 Sex: MEXAM/TECHNIQUE: [...] Signed By: Ravinder Rojo11/22/2022 01:54 CDTWorkstation Name: [id number] 18:45:00 Test Item Value Reference Range Interpretation Comments VITAMIN B12 ([employer]) (test code = 383 pg/mL 213-816 774) Construction Flagger ID - BSHIV-1 ANTIGEN WITH HIV-1/2 [id number] 17:48:38 Test Item Value Reference Range Interpretation Comments HIV-1 ANTIGEN WITH HIV 1\\T\\2 Nonreactive Nonreactive ANTIBODY (2) ([employer]) (test code = 2586) Construction Flagger ID - ADMINTSH/FREE T4 IF [id number] 17:48:37 Test Item Value Reference Range Interpretation Comments THYROID STIMULATING HORMONE 1.693 uIU/mL 0.350-4.940 ([employer]) (test code = 772) Construction Flagger ID - ADMINHIGH SENSITIVITY TROPONIN [id number] 17:34:01 Test Item Value Reference Range Interpretation Comments HIGH SENSITIVITY TROPONIN I (test < pg/ml <=35 code = 6941997) Construction Flagger ID - ADMINThe PATIENT ASSISTANT STAT High Sensitivity Troponin-I results should be used in conjunction with other diagnostic information such as ECG, clinical observations and information, and patientsymptoms to aid in the diagnosis of PR. CBC W/PLT COUNT & AUTO [id number] 17:04:31 Test Item Value Reference Range Interpretation [...] PERCENT (BEAKER) (test code = 2801) LIPID [id number] 16:20:15 Test Item Value Reference Range Interpretation [...] 31 U/L 29-200 code = 380) C-REACTIVE [id number] 16:20:15 Test Item Value Reference Range Interpretation Comments C-REACTIVE PROTEIN (BEAKER) (test 1.08 mg/dL 0.00-0.50 H code = 676) COMPREHENSIVE METABOLIC [id number] 16:20:14 Test Item Value Reference Range Interpretation [...] (test code = 347) EGFR (BEAKER) 106 Interpretati on of eGFR (test code = 1092) mL/min/1.73 [...] not appl icable for dialysis patien ts [id number] 16:20:14 Test Item Value Reference Range Interpretation Comments MAGNESIUM (BEAKER) (test code = 1.6 mg/dL 1.6-2.6 627) [id number] 16:20:14 Test Item Value Reference Range Interpretation Comments PHOSPHORUS (BEAKER) (test code = 3.3 mg/dL 2.3-4.7 604) [id number] 15:37:23 Test Item Value Reference Range Interpretation Comments PARTIAL THROMBOPLASTIN TIME 35.5 seconds 22.5-36.0 (BEAKER) (test code = 760) PROTHROMBIN TIME/[id number] 15:36:45 Test Item Value Reference Range Interpretation Comments PROTIME (TIFFANY) (test code = 15.3 seconds 11.9-14.2 H 759) INR (TIFFANY) (test code = 370) 1.29 <=5.90 RECOMMENDED COUMADIN/WARFARIN INR THERAPY RANGESSTANDARD DOSE: 2.0 - 3.0 Includes: PROPHYLAXIS for venous thrombosis, systemic embolization; TREATMENT for venous thrombosis and/or pulmonary embolus.HIGH RISK: Target INR is 2.5-3.5 for patients with mechanical heart valves.POCT-GLUCOSE [id number] 14:53:41 Test Item Value Reference Range Interpretation Comments POC-GLUCOSE METER 183 mg/dL 70-110 H : TESTED Nemesio Mitchell [facility] 6720 (TIFFANY) (test code = L[place] Black [place], 1538) [address]: Construction Flagger/Techni olesya ID = [id number] for Wendy Urena BASIC METABOLIC PANEL (NA, K, CL, CO2, GLUCOSE, BUN, CREATININE, CA)2022-10-28 16:23:16 Test Item Value Reference Range Interpretation Comments NA (test code = 136 mmol/L 135-145 0432640752) K (test code = 4.0 mmol/L 3.5-5.0 7112809470) CL (test code = 101 mmol/L 98-108 4190229350) CO2 TOTAL (test code = 23 mmol/L 23-31 9728938576) AGAP (test code = 12 2-16 4870814954) BUN (test code = 9 mg/dL 7-23 2855822439) GLUCOSE (test code = 286 mg/dL 70-110 H 5259334902) CREATININE (test code = 0.68 mg/dL 0.60-1.25 5475540805) CALCIUM (test code = 8.3 mg/dL 8.6-10.6 L 9327916908) eGFR (test code = 122.5 mL/min/1.73m2 9408792162) SHAWN (test code = SHAWN) Association of [...] tests). Lab Interpretation Abnormal (test code = 27524-2) [facility] WITH [id number] 16:10:58 Test Item Value Reference Range Interpretation Comments WBC (test code = 13.03 See_Comment H [Automated 9237-2) message] The sy stem which generated this result transmitted reference range : 4.20 - 10.70 10*3/?L. The reference range was not used to interpret this result as normal/abnormal . RBC (test code = 4.94 See_Comment [Automated 212-8) message] The sy stem which generated this [...] RDW-SD (test code = 42.8 fL 38.5-51.6 59234-1) RDW-CV (test code = 13.2 % 12.1-15.4 788-0) PLT (test code = 156 See_Comment [Automated 777-3) message] The sy stem which generated this result transmitted reference range : 150 - 328 10*3/ ?L. The reference r bhavna was not used to interpret this result as normal/abnormal . MPV (test code = 13.0 fL 9.8-13.0 79194-8) NRBC/100 WBC (test 0.0 See_Comment [Automat ed code = 4168311077) message] The system which generated this result transmitted reference range : 0.0 - 10.0 /100 WBCs. The refer ence range was not u sed to interpret th is result as normal/abnormal . NRBC x10^3 (test code See_Comment [Auto mated = 4311094676) message] The s ystem which generated this result transmitted reference range : 10*3/?L. The reference range was not used to interpret this result as normal/abnormal . GRAN MAT (NEUT) % 72.3 % (test code = 770-8) IMM GRAN % (test code 2.00 % = 0012420951) LYMPH % (test code = 15.0 % 736-9) MONO % (test code = 9.1 % 5905-5) EOS % (test code = 1.1 % 713-8) BASO % (test code = 0.5 % 706-2) GRAN MAT x10^3(ANC) 9.42 10*3/uL 1.99-6.95 H (test code = 3304514094) IMM GRAN x10^3 (test 0.26 10*3/uL 0.00-0.06 H code = 8278371399) LYMPH x10^3 (test code 1.96 10*3/uL 1.09-3.23 = 731-0) MONO x10^3 (test code 1.19 10*3/uL 0.36-1.02 H = 742-7) EOS x10^3 (test code = 0.14 10*3/uL 0.06-0.53 711-2) BASO x10^3 (test code 0.06 10*3/uL 0.01-0.09 = 704-7) Lab Interpretation Abnormal (test code = 55386-2) [facility] Test Item Value Reference Range Interpretation Comments GLUBED (test code = GLUBED) 155 mg/dL 70-110 H BASIC METABOLIC [id number] 06:26:00 Test Item Value Reference Range Interpretation [...] CA) 8.0 mg/dl 8.0-10.5 N CBC W/AUTO [id number] 06:04:00 Test Item Value Reference Range Interpretation [...] code = BA#) 0.1 K/mm3 0.0-0.2 N [id number] 05:50:00 Test Item Value Reference Range Interpretation Comments GLUBED (test code = GLUBED) 163 mg/dL 70-110 H [id number] 00:32:00 Test Item Value Reference Range Interpretation Comments GLUBED (test code = GLUBED) 216 mg/dL 70-110 H [id number] 05:57:00 Test Item Value Reference Range Interpretation Comments GLUBED (test code = GLUBED) 147 mg/dL 70-110 H [id number] 00:14:00 Test Item Value Reference Range Interpretation Comments GLUBED (test code = GLUBED) 169 mg/dL 70-110 H [id number] 16:32:00 Test Item Value Reference Range Interpretation Comments GLUBED (test code = GLUBED) 132 mg/dL 70-110 H [id number] 11:51:00 Test Item Value Reference Range Interpretation Comments GLUBED (test code = GLUBED) 170 mg/dL 70-110 H CARDIAC ENZYMES [id number] 08:23:00 Test Item Value Reference Range Interpretation Comments CREATINE KINASE (CK) 28 Units/L 39-308 L (test code = CK) TROPONIN-I (test code <0.02 NG/ML 0.00-0.06 N REFERE NCE RANGE = TROPI) TROPONIN I HEAL THY INDIVIDUALS: <0 .06 ng/mL R/O ISCHE AKHIL: 0.07 - 0.60 ng/ mL CUT-OFF RANGE F OR AMI: 0.60 - 1.5 ng/mL - XR CHEST 1 [id number] 06:38:00 FAX: Sky Valente MD [phone] [place]: St: ADM FAX: Chilango Dobbs [phone] ----- Name: SUDHEER JUAREZ [facility] : 1970 Age/S: 47/M [address] [facility] Unit #: [id number] Loc: [address] [place], [place] Phys: Chilango Vigil [address] Acct: [id number] Dis Date: Status: ADM IN PHONE #: [phone] Exam Date: 08/12/2018 06 FAX #: [phone] Reason: CHEST PAIN EXAMS: CPT CODE: [id number] XR CHEST 1 V 41967 Location: U19. CHEST, FRONTAL VIEW HISTORY: CHEST PAIN COMPARISON: Chest x-ray 05/17/18. FINDINGS: The lungs are clear without consolidation. No pleural effusion or pneumothorax. The heart size is normal. The bones are unremarkable. IMPRESSION: No evidence of acute cardiopulmonary disease. at 0638 Reported and signed by: Augusta Remy M.D. CC: Sky Bartholomew MD; [place] BE Technologist: KAREN CEE Trnorrd Date/Time/By: 08/12/2018 (0638) : By: [email or web address] PAGE 1 Signed Report FAX: Sky Quach MD [phone] [place]: St: [facility] FAX: Chilango Dobbs [phone] Name: SUDHEER JUAREZ [facility] : 1970 Age/S: 47/M [address] [facility] Unit #: [id number] Loc: [address] Phys: Chilango Vigil [address] Acct: [id number] Dis Date: Status: ADM IN PHONE #: [phone] Date: 08/12/2018635 FAX #: [phone] Reason: CHEST PAIN EXAMS: CPT CODE: [id number] XR CHEST 1 V 69712 (Continued) Orig Print D/T: S: 08/12/2018 (0641) PAGE 2 Signed [id number] 05:48:00 Test Item Value Reference Range Interpretation Comments GLUBED (test code = GLUBED) 155 mg/dL 70-110 H [id number] 04:15:00 Test Item Value Reference Range Interpretation Comments GLUBED (test code = GLUBED) 195 mg/dL 70-110 H [id number] 16:15:00 Test Item Value Reference Range Interpretation Comments GLUBED (test code = GLUBED) 210 mg/dL 70-110 H URINALYSIS [id number] 13:21:00 Test Item Value Reference Range Interpretation [...] = MUCU) TRACE DRUGS OF ABUSE SCREEN [id number] 13:20:00 Test Item Value Reference Interpretation Comments [...] = [place]) concentrati on: 300 ng/mL URINALYSIS [id number] 13:17:00 Test Item Value Reference Range Interpretation [...] UA BACTERIA (test code = NONE BACU) [id number] 11:54:00 Test Item Value Reference Range Interpretation Comments HGBA1C% (test code = HGBA1C%) 5.7 %A1C 4.8-6.0 N ESTIMATED AVERAGE GLUCOSE (test 117 MG/DL code = EAG) [id number] 11:19:00 Test Item Value Reference Range Interpretation Comments GLUBED (test code = GLUBED) 225 mg/dL 70-110 H COMPREHENSIVE METABOLIC [id number] 07:52:00 Test Item Value Reference Range Interpretation [...] 50.0-136.0 N code = ALKP) Comments to Playground Official: Patient is currently in the ED waiting [...] LDL) 128 mg/dl 70-130 N Comments to Playground Official: Patient is currently in the ED waiting on a bed [id number] 07:52:00 Test Item Value Reference Range Interpretation Comments MAGNESIUM (test code = MAG) 1.9 mg/dl 1.8-2.4 N Comments to Playground Official: Patient is currently in the ED waiting on a bedCBC W/AUTO [id number] 07:31:00 Test Item Value Reference Range Interpretation [...] BA#) 0.0 K/mm3 0.0-0.2 N Comments to Playground Official: Patient is currently in the ED waiting on a bedGLUBED 2018-08-11 05:55:00 Test Item Value Reference Range Interpretation Comments GLUBED (test code = GLUBED) 215 mg/dL 70-110 H [id number] 00:35:00 Test Item Value Reference Range Interpretation Comments GLUBED (test code = GLUBED) 260 mg/dL 70-110 H COMPREHENSIVE METABOLIC [id number] 18:48:00 Test Item Value Reference Range Interpretation [...] 50.0-136.0 N code = ALKP) COMPREHENSIVE METABOLIC [id number] 18:41:00 Test Item Value Reference Range Interpretation [...] (test Units/L 50.0-136.0 code = ALKP) PROTHROMBIN [id number] 18:36:00 Test Item Value Reference Range Interpretation Comments PROTHROMBIN TIME 12.6 SECONDS 9.9-12.8 N PATIENT (test code = PTP) INTERNATIONAL NORMAL 1.1 0.89-1.14 N THE INR IS TO BE USED RATIO (test code = ONLY FOR MONITORING INR) ORAL ANTICOAGULANTTH ERAPY. THE FOLLOWING A RE SUGGESTED RANGE S FROM [facility] LEGE OF CHEST PHYSICIANS:REJI [...] D ANTIBODIES 2.5 - 3.5 CBC W/AUTO [id number] 18:31:00 Test Item Value Reference Range Interpretation [...] K/mm3 0.0-0.2 N - CT L-SPINE W/O [id number] 18:03:00 FAX: Sagar Troncoso MD [phone] [place]: St: REG Name: SUDHEER JUAREZ [facility] : 1970 Age/S: 47/M [address] [facility] Unit: [id number] Loc: E.[place], [place]: [place] [address] Acct: [id number] Dis Date: Status: REG ER PHONE #: [phone] Exam Date: 08/10/2018 1754 FAX #: [phone] Reason: acute injury, Hx L3-4 fusion EXAMS: CPT CODE: [id number] CT L-SPINE W/O CONTRAST 86243 EXAM: CT LUMBAR SPINE WITHOUT CONTRAST INDICATION: [...] at the facet joints at L4-L5 bilaterally whichhas progressed since the prior examination. There is [...] Signed Report (CONTINUED) FAX: Sagar Troncoso MD [phone] [place]: St: REG Name: SUDHEER JUAREZ [facility] : 1970 Age/S: 47/M [address] [facility] Unit: [id number] [place]: [place]: [place] [address] Acct: [id number] Dis Date: Status: REG ER PHONE #: [phone] Exam Date: 08/10/20181753 FAX #: [phone] Reason: acute injury, Hx L3-4 fusion EXAMS: CPT CODE: [id number] CT L-SPINE W/O CONTRAST 57114 (Continued) Diffuse discogenic disease and facet joint [...] 1803 Reported and signed by: Leslee Lobo M.D.CC: Sagar Peters MD Technologist: MEHUL AWAN Trnscrd Dt/Tm: 08/10/2018 (1802) [email or web address] Orig Print D/T: S: 08/10/2018 (7996 PAGE 2 Signed Report- CT HEAD/BRAIN W/O [id number] 17:56:00 FAX: Sagar Troncoso MD [phone] [place]: St: REG Name: SUDHEER JUAREZ CAILIN [facility] : 1970 Age/S:47/M [address] [facility] Unit: [id number] Loc: [place], [place]: [place] [address] Acct: [id number] Dis Date: Status: REG ER PHONE #: [phone] Exam Date: 08/10/2018 1754 FAX #: [phone] Reason: acute injury, +LOC EXAMS: CPT CODE: [id number] CT HEAD/BRAIN W/O CONT 86160 CT HEAD WITHOUT CONTRAST. HISTORY: acute injury, [...] No evidence of acute intracranial abnormality. at 6774 Reported and signed by: Augusta Remy M.D. CC: Sagar Peters MD Techno logist: MEHUL AWAN Trnscrd Dt/Tm: 08/10/2018 (4262) [email or web address] Orig Print D/T: S: 08/10/2018 (6383 PAGE 1 Signed Report- XR T-SPINE 3 [id number] 17:33:00 FAX: Sagar Troncoso MD [phone] [place]: St: REG Name: SUDHEER JUAREZ CAILIN [facility] : 1970 Age/S:47/M [address] [facility] Unit #: [id number] Loc: [place], [place]: [place] [address] Acct: [id number] Dis Date: Status: REG ER PHONE #: [phone] Exam Date: FAX #: [phone] Reason: acute injury EXAMS: CPT CODE: [id number] XR T-SPINE 3 VIEWS 39435 Site ID: [id number] HISTORY: Acute injury, back pain IMPRESSION: Normal thoracic kyphosis, no acute fractureor subluxation. No significant spondylosis. Visualized ribs are intact. Spinal epidural leads terminate at the T8-T9 level. at 1733 Reportedand signed by: Memo Matos M.D. CC: Sagar Peters MD Technologist: HAI ELKINS Trnscrd Date/Time/By: 08/10/2018 (1443) : By: [email or web address] PAGE 1 Signed Report FAX: Sagar Troncoso MD [phone] [place]: St: REG -- Name: JUAREZSUDHEER CAILIN [facility] : 1970 Age/S: 47/M [address] [facility] Unit #: [id number] Loc: [place], [place]: [place] [address] Acct: [id number] Dis Date: Status: REG ER PHONE #: [phone] Exam Date: 08/10/2018 1729 FAX #: [phone] Reason: acute injury EXAMS: CPT CODE: [id number] XR T-SPINE 3 VIEWS 10801 (Continued) Orig Print D/T: S: 08/10/2018 (1738) PAGE 2 Signed Report[U] XRAY SPINE LUMBOSACRAL MIN 4 VWS [id number] 13:57:00 Test Item Value Reference Range Interpretation Comments XR SPINE LUMBOSACRAL EXAM: XR SPINE MIN 4 VWS (test code = LUMBOSACRAL MIN 4 VWS 13935-5) DATE: 05/30/2017 at 1400 hours. INDICATION: Lower back pain. COMPARISON: None available. TECHNIQUE: AP, lateral, coned lateral, LPO and RPO radiographs of the lumbar spine. FINDINGS:5 nonrib bearing, lumbar-type vertebral bodies are present.A presumed spinal cord stimulator battery pack project over the left hip. Its distal leads are excluded from the gfzuu-oz-tftr.Moderate facet arthropathy is present throughout the mid to lower lumbar spine.There appears to be an intervening disc spacer at the L3-L4 level. IMPRESSION:1. No acute, radiographic abnormality of the lower lumbar spine.2. Advanced facet arthropathy throughout the mid to lower lumbar spine.3. Probable intervening disc spacer at the L3-L4 level. 05/30/2017 2:32 PM PRN PHYSICAL THERAPIST Lam[place] Hector [place] Physicians Notes Date/Time Note Provider Source 2023-01-03 [facility] 17:17:26-00:00 Referral to neuro ordered. Spoke with DEMARUCS Holliday, who s aid her and Dr. Macias have sent orders for the bench. 2023-01-02 Formatting of this note might be differe nt from the original. Miya Valentin LVN [facility] 08:41:40-00:00 Faxed documents received and provided to MD on . Electronically signed by Miya Valentin LVN at 0 01/02/2023 8:42 AM CDT 2023-01-01 [facility] 10:55:55-00:00 I signed everything in sutur e sign today, I didn't see this patients name. 2023-01-01 [facility] 10:38:42-00:00 Orders are in suture sign. J ust need to be signed. Not added. Thank you! 2023-01-01 [facility] 10:05:31-00:00 Per [facility] staff rep, order s have been sent via Suture sign and faxed. Electronically signed by Miya Valentin LVN at 0 01/01/2023 10:06 AM T 2023-01-01 [facility] 09:51:48-00:00 Please add speech orders to HH orders, thanks (e gideon and treat) Jamila Phillips MD 2022-12-31 Formatting of this note might be differe nt from the original. Raheel Monreal [facility] 15:30:34-00:00 [facility] staff calling to get update on orders sent for speech evaluation Electronically signed by Raheel Monreal at 12/12 3:32 PM CDT 2022-12-28 [facility] 17:06:47-00:00 See orders, please send request to DME through p arachute thank 2022-12-28 Formatting of this note might be differe nt from the original. Miya Valentin LVN [facility] 11:44:15-00:00 Hangar order for AFO with hi nge joint 90 degree stop faxed on 12/28/2022. Electronically signed by Miya Valentin LVN at 0 12/28/2022 11:44 AM T 2022-12-25 Formatting of this note might be differe nt from the original. Carina Horan [facility] 15:15:16-00:[address] Results from [facility] in [place]. Scanned and uploaded into patient's chart. Placed in Provider box for Review. Electronically signed by Carina Horan at 0 12/25/2022 3:17 PM CDT 2022-12-25 Formatting of this note might be differe nt from the original. Carina Horan [facility] 15:07:21-00:00 Received External Radiology Results from [facility] in [place]. Scanned and uploaded into patient's chart. Placed in Provider box for Review. Electronically signed by Carina Horan at 0 12/25/2022 3:09 PM CDT 2022-12-20 Addended by: JAMILA PHILLIPS on: 2022 04:54 PM [facility] 16:54:50-00:00 Modules accepted: Orders 2022-12-20 Formatting of this note is different from the or iginal. [facility] 14:54:59-00:00 Order History 5 weeks ago (11/12/2022) [...] nt from the original. Miya Valentin LVN [facility] 13:32:10-00:00 rep notified of all. No further needs voiced at this time. Electronically signed by Miya Valentin LVN at 0 12/18/2022 1:32 PM CDT 2022-12-18 [facility] 10:51:50-00:00 I placed a referral to physi lula therapy for seating evaluation to be evaluated for power mobility device 2022-12-17 Formatting of this note might be differe nt from the original. Nava Hernandez [facility] 13:42:18-00:00 Mae with [facility] calling requesting for an order motorized scooter for pt. Please advise. Call back number: [phone] 2022-12-12 [facility] 11:02:37-00:[address] orders for AFO with hinge joint 90 d egree stop 2022-12-11 Formatting of this note is different from the or iginal. [facility] 12:39:03-00:00 Images from the original note [...] what he should do. Please advise 2022-12-11 [facility] 12:34:55-00:00 Nauseous yesterday, vomited once today [...] differe nt from the original. Magdalena Hernandez [facility] 12:13:41-00:00 Pt called and stated that he has a migraine and is vomiting. Pt needs guidance of what he should do. Please advise Electronically signed by Magdalena Hernandez at 05/2022 12:15 PM CDT 2022-12-10 Formatting of this note might be differe nt from the original. Miya Valentin [facility] 13:47:49-00:00 Dr. Phillips, All orders for the following have been placed except for the AFO with hinge joint 90 degree stop. Please advise. Electronically signed by Miya Valentin LVN at 0 12/10/2022 1:48 PM CDT 2022-12-10 Formatting of this note might be differe nt from the original. Miya Valentin [facility] 10:14:30-00:00 Spoke with Koby at [facility] and confirmed that Dr. Phillips is patient's PCP. No further information requested. Electronically signed by Miya Valentin LVN at 0 12/10/2022 10:15 AM CDT 2022-12-09 [facility] 17:40:15-00:00 I would check with Dr. Jett maurer since she ordered through parachute. :) 2022-12-07 Formatting of this note might be differe nt from the original. Chely Sheikh [facility] 09:29:51-00:00 Mehnaz with [facility] Staff is needing to speak to nurse in regards to pt last office visit and if pt will follow home ana. Electronically signed by Chely Sheikh at 9:31 AM CDT 2022-12-05 [facility] 17:52:29-00:00 Please review and advise Electronically signed by Miya Valentin LVN at 0 12/05/2022 5:54 PM CDT 2022-12-05 Formatting of this note might be differe nt from the original. Miya Valentin LVN [facility] 17:47:11-00:00 Sudheer GALE/Spouse-Viki walls contacted on 12/05/2022. She was notified orders have been placed and are pending insurance approval. Electronically signed by Miya Valentin LVN at 0 12/05/2022 5:50 PM CDT 2022-12-05 Formatting of this note might be differe nt from the original. Chely Sheikh [facility] 15:44:24-00:00 Spouse states pt was seen on 11/28/[address] PHILLIPS an stated pt had a stroke an requesting a order for hospital bed, bed toilet, ankle foot osteosis 90 degree and tub transfer bench. Contact spouse when processed. Electronically signed by Chely Sheikh at 3:48 PM CDT 2022-12-04 Formatting of this note is different fro m the original. Amina Mayorga MA [facility] 10:20:23-00:00 Images from the original note [...] last 12 months To be [facility] at: [id number] - [facility] [address] AT [facility] [place] [place] [facility] [place] [facility] 2022-11-30 Formatting of this note is different from the or iginal. [facility] 15:30:15-00:00 Images from the original note were not included. Patient seen in office 11/28/22 Office Visit 11/28/2022 [facility] [place] Jamila Phillips MD -FAMILY MEDICINE Acute ischemic [...] acute weakness and then was transferred to [facility] as he was found to have a subdural hematoma as well as acute left-sided ischemic stroke. Medications were changed, he was discharged on Plavix and rosuvastatin for stroke prevention. Aspirin and Eliquis were discontinued due to the subdural hematoma. He was recommended to follow-up with [facility] internal medicine, ace bradleyogjoie and also EP for impla ntable loop recorder to evaluate for arrhythmia. No appointments have been scheduled yet, he has a listed phone numbers to call. He lives with his and s on, in [place]. He has severe weakness to the right [...] shower and twisted the right knee 2022-11-26 [facility] 16:06:40-00:00 Attempted to contact patient . No answer. Left message to call back. Jacqui Gómez LVN 11/26/2022 4:06 PM 2022-11-26 Formatting of this note might be differe nt from the original. Berna Fuentes [facility] 10:15:59-00:00 Patient called asking to spe ak to nurse, he was hospitalized and they had put him on a new meds, he is scheduled fo Hospital fu on Saturday, he has questions regarding his medications. Please advise Electronically signed by Berna Fuentes at 11/26 10:18 AM CDT 2018-09-18 [id number] [facility] [place] 10:38:00-00:00 [address] [place], [place] [address] PATIENT NAME: SUDHEER JUAREZ ADMIT DATE: ACCOUNT NO: [id number] DISCHARGE DATE: 9 ROOM NO: E.438 REPORT [...] of chronic back pain who follows w ith pain management and has fentanyl pain pump, also wit h history of L3-L4 spinal fusion, also with history of hypertension, diabetes, T IA, hyperlipidemia, lupus, anxiety, presented to the hospital with excruciating back pain. EMS was ca lled. He was brought into the hospital. He denies any incontinence or perineal sensory loss. The patient was diagnosed with phcym-ld-cwhailr intractable low back pain. Diabetes and hypertension [...] PATIENT NAME: SUDHEER JUAREZ ACCOUNT #: [id number] WT: DS:E.FELICITA/BHAVNA/MYLENE Conf#: [id number]/DID#: [id number] Authenticated by Lakeisha Flaherty MD On 09/22/2018 02:45:38 PM Electronically Signed by Lakeisha Flaherty MD on 0 09/22/18 at 1445 PATIENT NAME: SUDHEER JUAREZ ACCOUNT #: [id number] 2018-08-16 [facility] 23:31:00-00:00 [facility] ([facility]) EMERGENCY PROVIDER REPORT REPORT#:[id number] REPORT STATUS: Signed DATE:08/16/18 TIME: 2330 PATIENT: SUDHEER JUAREZ UNIT #: [id number] ROOM/BED: AGE: 47 SEX: M PCP PHYS: No Primary or Family Ph ysician SERVICE AUTHOR: Rin Simmons SENIOR FUND ACCOUNTANT * ALL edits or amendments must be made on the Labfolder/Memrise document * HPI-Back Pain 40 and Over [...] mellitus, Hypertension. Additional Medical History Lupus, No PR, Heart Grafts x2, anxiety Additional Surgical History [...] 155/80 08/17 29 B/P Mean 105 08/17 0030 Temp 36.7 08/17 29 Pulse 80 08/17 0030 Resp 18 08/17 [...] outpatient evaluation with the primary care phys icirony or other designated or consulting physician as indicated in the dischar ge instructions. ED Course Medication(s) Ordered Medication(s) Ordered: Central Nervous System Agents Sig/Mahsa Start time Last Medication Dose Route Stop Time Status Admin Hydromorphone HCl 1 MG ONCE ONE 08/16 2345 DC 0 08/16 IV 08/16 2346 2346 Hydromorphone HCl 1 MG ONCE ONE 08/16 2330 DC SC 08/16 2331 Patient Discharge Departure Vital Signs/Condition Vital Signs First Documented: Result Date Time Pulse Ox 96 08/16 2306 B/P 164/100 08/16 2305 B/P Mean [...] symptoms should prompt an immediate return [facility] or the closest emergency department or a call to 911. at 2117 RPT #:[id number] END OF REPORT 2018-08-16 [facility] 23:31:00-00:00 [facility] ([facility]) EMERGENCY PROVIDER REPORT REPORT#:[id number] REPORT STATUS: Signed DATE:08/16/18 TIME: 2330 PATIENT: SUDHEER JUAREZ UNIT #: [id number] ROOM/BED: AGE: 47 SEX: M PCP PHYS: No Primary or Family Ph ysician SERVICE AUTHOR: Rin Simmons SENIOR FUND ACCOUNTANT * ALL edits or amendments must be made on the Labfolder/computer document * Rin Simmons 08/16/182330: HPI-Back Pain 40 and Over General Confirmed Patient Yes Patient Type Existing patient Assumed Care at Time 2310 Presentation Chief [...] mellitus, Hypertension. Additional Medical History Lupus, No PR, Heart Grafts x2, anxiety Additional Surgical History NO Stents, Spinal Fusion, back surgery Family History: Reports: Hypertension. Alcohol Use Denies EtOH use Drug Use Denies recreational drugs Smoking status for patients 13 years old or olde r: Never Smoker Physical Exam Vital Signs Vital Signs First Documented: Result Date Time Pulse Ox 96 08/16 2305 B/P 164/100 / 230 B/P Mean 121 08/16 230 O2 Delivery Room air 08/16 2305 Temp 36.9 08/16 230 Pulse 83 08/16 230 Resp 18 08/16 2305 Last Documented: Result Date Time Pulse Ox 97 04 0030 B/P 155/80 / 0030 B/P Mean 105 08/17 0030 Temp [...] 29 O2 Delivery Room air 08/16 2306 All [...] symptoms should prompt an immediate return to [facility] or the closest emergency department or a call to 911. Vani Madden 08/17/182116: HPI-Back Pain 40 and Over General Initial Greet Date/Time 08/16/18 2311 Physical Exam Vital Signs Vital Signs Re-Evaluation MDM ED Course Medication(s) Ordered Patient Discharge Departure Vital Signs/Condition Vital Signs Supervising Physician Note MidLv Saw Pt Alone I have reviewed the PA/SENIOR FUND ACCOUNTANT's note and plan of car e. I was available for consultation as needed at al l times during the patient's visit in the emergency department. I agree with the clinical impression , plan and disposition. at 2117 Electronically Signed by Vani Madden MD on at 2119 RPT #:[id number] END OF REPORT 2018-08-15 [facility] 12:22:00-00:00 [facility] ([facility]) EMERGENCY PROVIDER REPORT REPORT#:[id number] REPORT STATUS: Signed DATE:08/15/18 TIME: 1222 PATIENT: SUDHEER JUAREZ UNIT #: [id number] ROOM/BED: AGE: 47 SEX: M PCP PHYS: No Primary or Family Ph ysician SERVICE AUTHOR: Bishop Choudhury * ALL edits or amendments must be made on the Labfolder/Memrise document * HPI-Back Pain 40 and Over [...] not want to be admitted to the [facility]." Review of Systems ROS Statements All [...] mellitus, Hypertension. Additional Medical History Lupus, No PR, Heart Grafts x2, anxiety Additional Surgical History [...] Delivery Room air 08/15 1206 Temp 36.8 04 1206 Pulse 81 08/15 1206 Resp 18 08/15 1206 Last Documented: Result Date Time Pulse Ox 98 08/15 1206 B/P 177/89 08/15 1206 B/P Mean 118 08/15 1206 O2 Delivery Room air 08/15 1206 Temp 36.8 08/15 1206 Pulse 81 08/15 1206 Resp 18 08/15 1206 Review of Vital [...] Status Admin Methocarbamol 750 MG X1ED STA 04/ 1222 DC 04/ 05 PO 04/05 1223 [...] by Bishop Choudhury on at 1635 RPT #:[id number] END OF REPORT 2018-08-15 [facility] 12:22:00-00:00 [facility] ([facility]) EMERGENCY PROVIDER REPORT REPORT#:[id number] REPORT STATUS: Signed DATE:08/15/18 TIME: 1222 PATIENT: SUDHEER JUAREZ UNIT #: [id number] ROOM/BED: AGE: 47 SEX: M PCP PHYS: No Primary or Family Ph ysician SERVICE AUTHOR: Bishop Choudhury * ALL edits or amendments must be made on the Labfolder/computer document * Bishop Choudhury 08/15/18 1222: HPI-Back [...] not want to be admitted to the [facility]." Review of Systems ROS Statements All [...] mellitus, Hypertension. Additional Medical History Lupus, No PR, Heart Grafts x2, anxiety Additional Surgical History [...] Delivery Room air 04/ 1206 Temp 36.8 04/ 1206 Pulse 81 04/ 1206 Resp 18 / 1206 Last Documented: Result Date Time Pulse Ox 98 04/05 1206 B/P 177/89 04/ 1206 B/P Mean 118 04/05 1206 O2 Delivery Room air 04/ 1206 Temp 36.8 04/05 1206 Pulse 81 04/ 1206 Resp 18 / 1206 Review of Vital Signs Reviewed Focused [...] STA 08/15 1222 DC 04/ 05 PO 04/ 1223 1229 Central Nervous System Agents Sig/Mahsa Start time Last Medication Dose Route Stop Time Status Admin Hydromorphone HCl 2 MG X1ED STA 04 1221 DC 0 4/05 PO 04/ 1222 1230 Hormones And Synthetic Substit Sig/Mahsa Start time Last Medication Dose Route Stop Time Status Admin Prednisone 50 MG X1ED STA 04 1222 DC 04/05 PO 04/05 1223 1229 Patient Discharge Departure Vital Signs/Condition Vital Signs First Documented: Result Date Time Pulse Ox 98 / 1206 B/P 177/89 / 1206 B/P Mean 118 04/ 1206 O2 Delivery Room air 04/ 1206 Temp 36.8 04/ 1206 Pulse 81 04/ 1206 Resp 18 08/15 1206 Last Documented: Result Date Time Pulse Ox 98 04/ 1206 B/P 177/89 04/ 1206 B/P Mean 118 04/05 1206 O2 Delivery Room air 04/ 1206 Temp 36.8 04/05 1206 Pulse 81 08/15 1206 Resp 18 [...] Saw Pt Alone I have reviewed the PA/SENIOR FUND ACCOUNTANT's note and plan of car e. I was available for consultation as needed at al l times during the patient's visit in the emergency department. I agree with the clinical impression , plan and disposition. Electronically Signed by Bishop Choudhury on at 1635 Electronically Signed by Payton Snowden MD on 0 08/16/18 at 0759 RPT #:[id number] END OF REPORT 2018-08-14 [facility] 11:17:00-00:00 [facility] ([facility]) Orthopaedic Progress Note REPORT#:[id number] REPORT STATUS: Signed DATE:08/14/18 TIME: 1117 PATIENT: SUDHEER JUAREZ UNIT #: [id number] ROOM/BED: [place] [address] : [birth year] AGE: 47 SEX: M ATTEND: Shahid Bartholomew MD ADM AUTHOR: Jose Elias Avila MD * ALL edits or amendments must be made on the Labfolder/computer document * Subjective Chief complaint: low back [...] (Auto) (23.0 - 38.0 %) 18.0 L Boyd % (Auto) (1.0 - 10.0 %) 6.7 Eos % (Auto) (1.0 - 5.0 %) 0.1 L Baso % (Auto) (0.0 - 1.0 %) 0.3 Neut # (Auto) (2.4 - 6.3 K/mm3) 11.9 H Lymph # (Auto) (1.2 - 4.0 K/mm3) 2.9 Boyd # (Auto) (0.0 - 0.6 K/mm3) 1.1 [...] Elias Avila MD on at 1119 RPT #:[id number] END OF REPORT 2018-08-13 [facility] 14:29:00-00:00 [facility] ([facility]) Hospitalist Progress Note REPORT#:[id number] REPORT STATUS: Signed DATE:08/13/18 TIME: 1429 PATIENT: SUDHEER JUAREZ UNIT #: [id number] ROOM/BED: [place] [address] : [birth year] AGE: 47 SEX: M ATTEND: Shahid Bartholomew MD ADM AUTHOR: Lakeisha Flaherty MD * ALL edits or amendments must be made on the Labfolder/computer document * Subjective Chief Complaint: still with [...] muscle spasm, muscle tenderness , paraspinal tenderness Neuro/PRINCIPLE SOFTWARE ENGINEER: alert, oriented X 3 Skin: dry, intact Results Findings/Data: Laboratory Tests 08/12 08/13 08/13 1620 0002 0548 Chemistry POC Glucose (70 - 110 mg/dL) 132 H 169 H 147 H Diagnosis, Assessment Plan Free Text DxA P Notes Free text DxA P notes: 1. Rslen-hv-kdpqkdl intractable low back pain. CT L-spine is negative for acute fracture. consulted PT, slow to improv e---cannot take few steps, cannot sit for more than few seconds seen by Dr. Avlia consult pain management patient reports pain not well controlled---perco cet not working discussed with pain mgmt, they will change to dom sotelo and also working on getting him earlier outpatient appt 2. Diabetes mellitus type 2. controlled K2O----1.7 3. Hyperlipidemia. Continue home medications. 4. Transient [...] Lakeisha Flaherty MD on at 1438 RPT #:[id number] END OF REPORT 2018-08-13 [facility] 14:29:00-00:00 [facility] ([facility]) Hospitalist Progress Note REPORT#:[id number] REPORT STATUS: Signed DATE:08/13/18 TIME: 1429 PATIENT: SUDHEER JUAREZ UNIT #: [id number] ROOM/BED: [place] [address] : [birth year] AGE: 47 SEX: M ATTEND: Shahid Bartholomew MD ADM AUTHOR: Lakeisha Flaherty MD * ALL edits or amendments must be made on the el [employer]/computer document * See Addendum Subjective Chief Complaint: [...] muscle spasm, muscle tenderness , paraspinal tenderness Neuro/PRINCIPLE SOFTWARE ENGINEER: alert, oriented X 3 Skin: dry, intact Results Findings/Data: Laboratory Tests 08/12 08/13 08/13 1620 0002 0548 Chemistry POC Glucose (70 - 110 mg/dL) 132 H 169 H 147 H Diagnosis, Assessment Plan Free Text DxA P Notes Free text DxA P notes: 1. Zgmtm-tt-jzqtznm intractable low back pain. C T L-spine [...] appt 2. Diabetes mellitus type 2. controlled B9L----6.7 3. Hyperlipidemia. Continue home medications. 4. Transient [...] Lakeisha Flaherty MD on at 1439 RPT #:[id number] END OF REPORT 2018-08-13 [facility] 14:01:00-00:00 [facility] ([facility]) Pain Management Progress Note REPORT#:[id number] REPORT STATUS: Signed DATE:08/13/18 TIME: 1401 PATIENT: SUDHEER JUAREZ UNIT #: [id number] ROOM/BED: [place] [id number] : 70 AGE: 47 SEX: M ATTEND: Shahid Bartholomew MD ADM AUTHOR: Brennen Valenzuela * ALL edits or amendments must be made on the Punchh/computer document * Subjective Chief Complaint: Patient seen [...] 08/13 1141 O2 Delivery Nasal cannula 08/13 6019 Medications: Active Meds + DC'd Last 24 [...] Extremities: moves all, no edema, pedal pulses Neuro/PRINCIPLE SOFTWARE ENGINEER: no motor deficits, no sensory deficit [...] narcotic medication will arrange followup in clinic [place] ARTIFICIAL PLASTIC EYE MAKER report personally reviewed, copy place d on chart. 06/23/2018 1 04/10/2018 LYRI CA 200 MG CAPSULE 90.0 30 DA [place] [id number] [facility] (1910 ) 0 Medicare [place] 05/29/2018 1 05/29/2018 TRAM ADOL HCL 50 MG TABLET 20.0 5 KE RIT [id number] [facility] ( 1910) 05/28/2018 2 05/22/2018 FENTANYL CITRATE POWDER 0.0015 1 VL RED [id number] [facility] ( 8731) 0 195.0 MME Private Pay [place] 05/14/2018 1 05/13/2018 TRAMADOL HCL 50 MG TABLET 20.0 3 RO ARM [id number] [facility] ( 9191) 0 33.33 MME Medicare [place] 04/10/2018 1 04/10/2018 LYRI CA 200 MG CAPSULE 90.0 30 DA [place] [id number] [facility] (9191) 0 Medicare [place] 03/24/2018 2 03/20/2018 FENTANYL CITRATE POWDER 0.001 1 VL RED [id number] [facility] ( 8731) [facility] (0951) [address] [place] [address] [id number] [facility] (5491) [address] [place] [address] [phone] [facility] (8731) [address] [facility] [address] [phone] at 1406 RPT #:[id number] END OF REPORT 2018-08-13 [facility] 14:01:00-00:00 [facility] ([facility]) Pain Management Progress Note REPORT#:[id number] REPORT STATUS: Signed DATE:08/13/18 TIME: 1401 PATIENT: SUDHEER JUAREZ UNIT #: [id number] ROOM/BED: [place] [id number] : 70 AGE: 47 SEX: M ATTEND: Shahid Bartholomew MD ADM AUTHOR: Brennen Valenzuela * ALL edits or amendments must be made on the Punchh/computer document * Subjective Chief Complaint: Patient seen [...] Extremities: moves all, no edema, pedal pulses Neuro/PRINCIPLE SOFTWARE ENGINEER: no motor deficits, no sensory deficit [...] narcotic medication will arrange followup in clinic [place] [employer] report personally reviewed, copy place d on chart. 06/23/2018 1 04/10/2018 LYRI CA 200 MG CAPSULE 90.0 30 DA [place] [id number] [facility] (1910 ) 0 Medicare [place] 05/29/2018 1 05/29/2018 TRAM ADOL HCL 50 MG TABLET 20.0 5 KE RIT [id number] [facility] ( 1910) 05/28/2018 2 05/22/2018 FENTANYL CITRATE POWDER 0.0015 1 VL RED 021963 [facility] ( 8776) 0 195.0 MME Private Pay [place] 05/14/2018 1 05/13/2018 TRAMADOL HCL 50 MG TABLET 20.0 3 RO ARM [id number] [facility] ( 9191) 0 33.33 MME Medicare [place] 04/10/2018 1 04/10/2018 LYRI CA 200 MG CAPSULE 90.0 30 DA [place] 211632 [facility] (3391) 0 Medicare [place] 03/24/2018 2 03/20/2018 FENTANYL CITRATE POWDER 0.001 1 VL RED [id number] [facility] ( 8731) [facility] (3361) [address] [place] [place] [address] [phone] [facility] (0736) [address] [place] [address] [phone] [facility] (8731) [address] [facility] [address] [phone] at 1406 Electronically Signed by Alberto Arceo MD on 07/29 at 2157 RPT #:[id number] END OF REPORT 2018-08-13 [id number] [facility] 07:12:00-00:00 [address] [place], [place] [address] PATIENT NAME: SUDHEER JUAREZ ADMIT DATE: ACCOUNT NO: [id number] DISCHARGE DATE: ROOM NO: E.438 REPORT TYPE: [...] device pump mod el #8637-20, pump serial #[id number]. He currently has in his reservoir f [...] for Alberto lam MD WT: OP:KELSEA/NETO/MYLENE Conf#: [id number]/DID#: [id number] Authenticated and Edited by Lex Dan On 08/13/18 2:17:30 PM Authenticated by Alberto Arceo MD On 08/13/2018 09:58:51 PM Electronically Signed by Alberto Arceo MD on 07/29 at 2158 at 2158 PATIENT NAME: SUDHEER JUAREZ ACCOUNT #: [id number] 2018-08-12 [facility] 15:23:00-00:00 [facility] ([facility] Orthopaedic Progress Note REPORT#:[id number] REPORT STATUS: Signed DATE:08/12/18 TIME: 1523 PATIENT: SUDHEER JUAREZ UNIT #: [id number] ROOM/BED: [place] [id number] : 70 AGE: 47 SEX: M ATTEND: Shahid Bartholomew MD ADM AUTHOR: Jose Elias Avila MD * ALL edits or amendments must be made on the Punchh/computer document * Subjective Chief complaint: low back [...] Exam General appearance: alert, awake, oriented, plea aylssia, mental status normal Musculoskeletal: midline spi ne [...] Elias Avila MD on at 1526 RPT #:[id number] END OF REPORT 2018-08-12 [facility] 13:54:00-00:00 [facility] ([facility]) Hospitalist Progress Note REPORT#:[id number] REPORT STATUS: Signed DATE:08/12/18 TIME: 1354 PATIENT: SUDHEER JUAREZ UNIT #: [id number] ROOM/BED: [place] [address] : 70 AGE: 47 SEX: M ATTEND: Shahid Bartholomew MD ADM AUTHOR: Lakeisha Flaherty MD * ALL edits or amendments must be made on the Labfolder/computer document * Subjective Chief Complaint: still with [...] tenderness, no clubbing, no cyanosis, no edema Neuro/PRINCIPLE SOFTWARE ENGINEER: alert, oriented X 3 Skin: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
[2023-01-05 22:22] LABS: Absolute Lymphocytes (CBC) 2.4 K/uL (0.7-4.9); Hematocrit 44.2 % (39.6-49.0); Lymphocytes % 19.6 % (15.3-44.8); MPV 11.5 fL (7.6-11.3); Platelets 148 thou/uL (152-406); RBC Red Blood Cell Count 4.96 M/uL (4.33-5.43)
[2023-01-05 22:29] LABS: Protime INR 1.09
--- NOTE | 2023-01-05 22:30 | RAD REPORT ---
EXAM DESCRIPTION: CT - Head Brain Wo Cont - 01/05/2023 10:19 pm CLINICAL HISTORY: Headache, nausea COMPARISON: Ct Stroke Brain Wo Cont dated 12/11/2022; Head Brain Wo Cont dated 11/21/2022; Head C Spine Mpr Wo Con dated 12/20/2022 TECHNIQUE: All CT scans are performed using dose optimization technique as appropriate and may inclu de automated exposure control or mA/KV adjustment according to patient size. FINDINGS: No intracranial hemorrhage, hydrocephalus or extra-axial fluid collection.No areas of brai n edema or evidence of midline shift. New focus of white matter hypoattenuation in the left basal tyler glia and barcenas radiata region. This is more conspicuous than the CT from 12/20/2022. The paranasal sinuses and mastoids are clear. The calvarium is intact. IMPRESSION: Small focus of white matter hypoattenuation in the left basal ganglia/ barcenas radiata is more conspicuous than on the prior CT and could reflect a subacute infarct. MRI could better assess.
[2023-01-05] MEDS ORDERED: DIPHENHYDRAMINE 50 MG/ML VIAL ONE (22:54)
[2023-01-05] MEDS ORDERED: METOCLOPRAMIDE 10 MG/2mL INJ ONE (22:54)
--- NOTE | 2023-01-05 23:29 | ER ---
Nurse's Notes [facility] Name: Matti Juarez Age: 52 yrs Sex: Male : 1970 Arrival Date: 01/05/2023 Time: 21:23 Bed 11 Private MD: Diagnosis: Headache;Abnormal CT Head Presentation: 01/05 21:30 Chief complaint: Patient states: he started having a headache on the right side of his ap3 head this afternoon. patient reports the pain to be a 10/10 on the pain scale. patient complains of nausea but no vomiting. Coronavirus screen: At this time, the client does not indicate any symptoms associated with coronavirus-19. Ebola Screen: No symptoms or risks identified at this time. Initial Sepsis Screen: Does the patient meet any 2 criteria? No. Patient's initial sepsis screen is negative. Does the patient have a suspected source of infection? No. Patient's initial sepsis screen is negative. Risk Assessment: Do you want to hurt yourself or someone else? Patient reports no desire to harm self or others. Onset of symptoms was January 05, 2023. 21:30 Method Of Arrival: Wheelchair ap3 21:30 Acuity: JELENA 3 ap3 Triage Assessment: 21:32 Headache History: The patient has had previous headaches and this one is similar to ap3 previous episodes. General: Appears in no apparent distress. Behavior is calm, cooperative, appropriate for age. Pain: Complains of pain in head Pain currently is 10 out of 10 on a pain scale. Pain began 4 hours ago. Also complains of nausea. Neuro: Level of Consciousness is awake, alert, obeys commands, Oriented to person, place, time, situation. Cardiovascular: Patient's skin is warm and dry. Respiratory: Airway is patent Respiratory effort is even, unlabored, Respiratory pattern is regular, symmetrical. Historical: - Allergies: 21:31 Anesthesia; ap3 21:31 Aspirin; ap3 21:31 atorvastatin; ap3 21:31 Iodinated Contrast Media - IV Dye (cardiac arrest); ap3 21:31 Requip; ap3 21:31 ropinirole HCl; ap3 21:31 SHELLFISH; ap3 - Home Meds: 21:32 losartan Oral [Active]; metformin 1,000 mg Oral tab 1 tab 2 times per day [Active]; ap3 montelukast Oral [Active]; - PMHx: 21:31 cardiac arrest; Diabetes - NIDDM; heart catheterization; Hemorrhagic Stroke; ap3 Hypertension; Right sided weakness; - PSHx: 21:31 Cholecystectomy; pain pump implant, RIGHT lower abd; spine fusion; spine stimulator, ap3 LEFT hip; - Immunization history:: Client reports receiving the 2nd dose of the Covid vaccine. - Social history:: Smoking status: Patient denies any tobacco usage or history of. Screenin:33 [facility] ED Fall Risk Assessment (Adult) History of falling in the last 3 months, ap3 including since admission Yes- fall prone (multiple falls) (3 pts) Confusion or Disorientation No (0 pts) Intoxicated or Sedated No (0 pts) Impaired Gait Yes (1 pt) Mobility Assist Device Used Yes (1 pt) Altered Elimination No (0 pt). Abuse screen: Denies threats or abuse. Nutritional screening: No deficits noted. Tuberculosis screening: No symptoms or risk factors identified. Assessment: 23:38 Reassessment: Patient appears in no apparent distress at this time. Patient states kl feeling better. Patient states symptoms have improved. Neuro: Level of Consciousness is awake, alert, obeys commands, Oriented to person, place, time, situation. Vital Signs: 21:30 BP 148 / 90; Pulse 69; Resp 18; Temp 98.1; Pulse Ox 96% ; Weight 108.41 kg; Pain 10/10; ap3 23:38 BP 121 / 69; Pulse 72; Resp 18; Pulse Ox 100% on R/A; kl 21:30 Pain Scale: Adult ap3 ED Course: 21:24 Patient arrived in ED. jj6 21:31 Triage completed. ap3 21:34 Arm band placed on right wrist. ap3 21:39 Junior Pinedo DO is Attending Physician. ms3 22:19 Initial lab(s) drawn, by me, sent to lab. Inserted saline lock: 22 gauge in left wrist, kj1 using aseptic technique. Blood collected. 22:21 CT Head Brain wo Cont In Process Unspecified. EDMS 22:41 Mariia Montero, USMAN is Primary Nurse. ap3 23:20 ED physician to see patient. ap3 23:28 Hawk Levy MD is Referral Physician. ms3 23:38 No provider procedures requiring assistance completed. IV discontinued, intact, kl bleeding controlled, No redness/swelling at site. Pressure dressing applied. Administered Medications: 22:47 Drug: metoCLOPramide IVP 10 mg Route: IVP; Site: left wrist; ap3 22:47 Drug: diphenhydrAMINE IVP 25 mg Route: IVP; Site: left wrist; ap3 Outcome: 23:28 Discharge ordered by MD. ms3 23:38 Discharged to home ambulatory, with family. kl 23:38 Condition: improved 23:38 Discharge instructions given to patient, Instructed on discharge instructions, follow up and referral plans. Demonstrated understanding of instructions, follow-up care. 23:39 Patient left the ED. kl Signatures: Dispatcher [employer] EDMS Merary Abreu RN RN kl Prokisch, Amanda, RN RN ap3 Lori Gracia Marcus, DO DO ms3 Kay Canela jj6
--- NOTE | 2023-01-05 23:29 | EDPHYS ---
Physician Documentation [facility] Name: Matti Juarez Age: 52 yrs Sex: Male : 1970 Arrival Date: 01/05/2023 Time: 21:23 Bed 11 Private MD: ED Physician Junior Pinedo HPI: 01/05 23:29 This 52 yrs old Male presents to ER via Wheelchair with complaints of ms3 Headache, Nausea. 23:29 52-year-old male with past medical history of cardiac arrest, diabetes, heart ms3 catheterization, subdural hemorrhage presents for headache with nausea. Patient states he has a history of headaches after his stroke and had similar symptoms 1 week ago. Patient endorses nausea, denies vomiting. Patient is pain is 10/10. Patient denies neurodeficits. Historical: - Allergies: 21:31 Anesthesia; ap3 21:31 Aspirin; ap3 21:31 atorvastatin; ap3 21:31 Iodinated Contrast Media - IV Dye (cardiac arrest); ap3 21:31 Requip; ap3 21:31 ropinirole HCl; ap3 21:31 SHELLFISH; ap3 - Home Meds: 21:32 losartan Oral [Active]; metformin 1,000 mg Oral tab 1 tab 2 times per day [Active]; ap3 montelukast Oral [Active]; - PMHx: 21:31 cardiac arrest; Diabetes - NIDDM; heart catheterization; Hemorrhagic Stroke; ap3 Hypertension; Right sided weakness; - PSHx: 21:31 Cholecystectomy; pain pump implant, RIGHT lower abd; spine fusion; spine stimulator, ap3 LEFT hip; - Immunization history:: Client reports receiving the 2nd dose of the Covid vaccine. - Social history:: Smoking status: Patient denies any tobacco usage or history of. ROS: 23:28 Constitutional: Negative for fever, and chills. ENT: Negative for injury, pain, and ms3 discharge, Neck: Negative for injury, pain, and swelling, Cardiovascular: Negative for chest pain, and palpitations. Respiratory: Negative for shortness of breath, cough, wheezing, and pleuritic chest pain, Abdomen/GI: Negative for abdominal pain, nausea, vomiting, diarrhea, and constipation, MS/Extremity: Negative for injury and deformity, Skin: Negative for injury, rash, and discoloration. 23:28 Neuro: Positive for headache. 23:28 All other systems are negative. Exam: 23:28 Constitutional: This is a well developed, well nourished patient who is awake, alert, ms3 and in no acute distress. Head/Face: Normocephalic, atraumatic. Neck: Trachea midline, no cervical lymphadenopathy. Supple, full range of motion without nuchal rigidity, or vertebral point tenderness. No Meningismus. Chest/axilla: Normal chest wall appearance and motion. Nontender with no deformity. Cardiovascular: Regular rate and rhythm with a normal S1 and S2. No gallops, murmurs, or rubs. Normal PMI, no JVD. No pulse deficits. Respiratory: Lungs have equal breath sounds bilaterally, clear to auscultation and percussion. No rales, rhonchi or wheezes noted. No increased work of breathing, no retractions or nasal flaring. Abdomen/GI: Soft, non-tender, with normal bowel sounds. No distension or tympany. No guarding or rebound. No evidence of tenderness throughout. Skin: Warm, dry with normal turgor. Normal color with no rashes, no lesions, and no evidence of cellulitis. Psych: Awake, alert, with orientation to person, place and time. Behavior, mood, and affect are within normal limits. 23:28 Neuro: Orientation: is normal, Mentation: is normal, Memory: is normal, Cerebellar function: is grossly normal, Motor: is normal. Vital Signs: 21:30 BP 148 / 90; Pulse 69; Resp 18; Temp 98.1; Pulse Ox 96% ; Weight 108.41 kg; Pain 10/10; ap3 23:38 BP 121 / 69; Pulse 72; Resp 18; Pulse Ox 100% on R/A; kl 21:30 Pain Scale: Adult ap3 MDM: 21:50 Patient medically screened. ms3 23:28 Differential diagnosis: intracerebral hemorrhage, subarachnoid bleed, subdural ms3 hematoma, tension headache. Data reviewed: vital signs, nurses notes, and as a result, I will discharge patient. Management of patient was discussed with the following: Entertainment Reporter: Dr Jarad MASSEY,. Statin, folic acid. I considered the following discharge prescriptions or medication management in the emergency department Medications were administered in the Emergency Department. See MAR. Independent interpretation of the following test(s) in the Emergency Department CT Scan: My interpretation is CT head without contrast images reviewed by me do not reveal intracranial hemorrhage. Historians other than the Patient: Spouse/Significant Other: Patient's . Counseling: I had a detailed discussion with the patient and/or guardian regarding the historical points, exam findings, and any diagnostic results supporting the discharge/admit diagnosis, lab results, radiology results, the need for outpatient follow up, to return to the emergency department if symptoms worsen or persist or if there are any questions or concerns that arise at home. ED course: Discussed area of hypoattenuation on CT with patient. Patient denies any new neurodeficits. Discussed case with Dr. Fay who recommended aspirin, statin, folic acid. Patient states he is currently seeing a neurologist and is not aware of all the medications he is currently on. Patient states he is currently taking Plavix. Patient to follow-up with Dr. Fay in 1 to 2 days. Patient understands and agrees with plan. All questions were answered. Return precautions discussed include worsening symptoms, or any other concerns. 01/05 21:51 Order name: CBC with Diff; Complete Time: 22:34 ms3 01/05 21:51 Order name: BMP; Complete Time: 22:46 ms3 01/05 21:51 Order name: PT-INR; Complete Time: 22:34 ms3 01/05 21:51 Order name: CT Head Brain wo Cont; Complete Time: 22:34 ms3 Administered Medications: 22:47 Drug: metoCLOPramide IVP 10 mg Route: IVP; Site: left wrist; ap3 22:47 Drug: diphenhydrAMINE IVP 25 mg Route: IVP; Site: left wrist; ap3 Disposition Summary: 01/05/23 23:28 Discharge Ordered Location: Home ms3 Condition: Stable ms3 Diagnosis - Headache ms3 - Abnormal CT Head ms3 Followup: ms3 - With: Hawk Levy MD - When: 2 - 3 days - Reason: Recheck today's complaints Discharge Instructions: - Discharge Summary Sheet ms3 - General Headache Without Cause ms3 Forms: - Medication Reconciliation Form ms3 - Thank You Letter ms3 - Antibiotic Education ms3 - Prescription Opioid Use ms3 - Patient Portal Instructions ms3 - Leadership Thank You Letter ms3 Signatures: [facility] Mari[facility] Hampton RN RN ap3 Junior Pinedo DO DO ms3 Corrections: (The following items were deleted from the chart) 01/06 01:21 01/05 23:29 . ms3 ms3 01/06 01:20 Constitutional: Negative for fever, and chills. ENT: Negative for injury, pain, ms3 and discharge, Neck: Negative for injury, pain, and swelling, Cardiovascular: Negative for chest pain, and palpitations. Respiratory: Negative for shortness of breath, cough, wheezing, and pleuritic chest pain, Abdomen/GI: Negative for abdominal pain, nausea, vomiting, diarrhea, and constipation, MS/Extremity: Negative for injury and deformity, Skin: Negative for injury, rash, and discoloration, ms3 01:20 Neuro: Positive for headache, ms3 ms3 01:20 All other systems are negative, ms3 ms3 01:20 Constitutional: This is a well developed, well nourished patient who is awake, ms3 alert, and in no acute distress. Head/Face: Normocephalic, atraumatic. Neck: Trachea midline, no cervical lymphadenopathy. Supple, full range of motion without nuchal rigidity, or vertebral point tenderness. No Meningismus. Chest/axilla: Normal chest wall appearance and motion. Nontender with no deformity. Cardiovascular: Regular rate and rhythm with a normal S1 and S2. No gallops, murmurs, or rubs. Normal PMI, no JVD. No pulse deficits. Respiratory: Lungs have equal breath sounds bilaterally, clear to auscultation and percussion. No rales, rhonchi or wheezes noted. No increased work of breathing, no retractions or nasal flaring. Abdomen/GI: Soft, non-tender, with normal bowel sounds. No distension or tympany. No guarding or rebound. No evidence of tenderness throughout. Skin: Warm, dry with normal turgor. Normal color with no rashes, no lesions, and no evidence of cellulitis. Psych: Awake, alert, with orientation to person, place and time. Behavior, mood, and affect are within normal limits. ms3 01:20 Neuro: Orientation: is normal, Mentation: is normal, Memory: is normal, ms3 Cerebellar function: is grossly normal, Motor: is normal, ms3
[2023-01-05 23:49] VITALS: TEMP 98.1
[2023-01-05 23:54] VITALS: BP 121/69; O2SAT 100
== END 2023-01-05 23:39 | disposition home or self-care (01) ==
LOC: ER 21:23
DX: R51.9 Headache, unspecified (principal); R93.0 Abnormal findings on diagnostic imaging of skull and head, not elsewhere classified; E11.9 Type 2 diabetes mellitus without complications; I10 Essential (primary) hypertension; Z88.4 Allergy status to anesthetic agent; Z88.6 Allergy status to analgesic agent; Z88.8 Allergy status to other drugs, medicaments and biological substances; Z91.013 Allergy to seafood; Z91.041 Radiographic dye allergy status
CPT/HCPCS: 85025; 80048; 36415; 85610; 70450; 96375; 96374; 99284; J2765; J1200

== ENCOUNTER 2023-02-02 01:55 | Emergency (ER) | payer OTHER ==
--- OUTSIDE RECORDS SUMMARY | 2023-02-02 02:21 | XMS REPORT | Continuity of Care Document ---
:1970 Author Organization [facility] t Address [address] [facility] [address] [place] [address] Support Name Relationship Address Phone EVELINE LANI P Unavailable LaniBelia Father Unavailable JAZMIN BRYSON, OLGANEW [facility] Emergency Provider [address] [place] [address] OTHER, ENTER NAME IN Primary Care Physician Unavailable Unav ailable NOTES YOSELIN JUAREZ Next of Kin [address] [place] [address] YOSELIN JUAREZ Unavailable [address] [place] [address] SUDHEER JUAREZ Unavailable [address] [place] [address] Yoselin Juarez Spouse [address] [phone] [place] [address] YOSELIN JUAREZ Unavailable [address] [phone] [address] [place] [address] SUDHEER JUAREZ Unavailable [address] [phone] [address] [place] [address] SUDHEER JUAREZ Unavailable [address] [phone] [address] [place] [address] YOSELIN JUAREZ Unavailable [address] [phone] [address] [place] [address] Eveline Juarez Spouse [address] [phone] 4 [place] [address] EVELINE JUAREZ X [address] [phone] [place] [address] Care Team Providers Name Role Phone NONE Primary Care Physician Unavailable AMANDA HANEY Attending Clinician Unavailable BELLE CATES Attending Clinician Unavailable JAMILA PHILLIPS Attending Clinician Unavailable DILIP BOLTON Attending Clinician Unavailable STAS SHULTZ Attending Clinician Unavailable STAS SHULTZ Attending Clinician Unavailable RIN MCCLENDON Attending Clinician Unavailable Katie Hurtado OT Attending Clinician Unavailable Jim Lira MD Attending Clinician JIM LIRA Attending Clinician Unavailable JIM LIRA Attending Clinician Unavailable Doctor Unassigned, Purdy Attending Clinician Unavailable NENA PORTER Attending Clinician Unavailable DIAZ DOVER Attending Clinician Unavailable Diaz Dover MD Attending Clinician RUBEN SCHWAB Attending Clinician Unavailable Nurse, [facility] Attending Clinician Unavailable Unknown, Attending Attending Clinician Unavailable Ruben Schwab MD Attending Clinician Blessing Murphy Attending Clinician BLESSING YANES Attending Clinician Unavailable Jamila Phillips MD Attending Clinician [phone] [facility] Dalila Rodriguez MD Attending Clinician [phone] Donta BRYSON, Belle Shelley Attending Clinician [phone] Mariangel Luciano MD Attending Clinician Medina BRYSON, Amanda Luna Attending Clinician [phone] Dilip Bolton MD Attending Clinician Hue Mcadams Attending Clinician CANDIDA PAUL Attending Clinician Unavailable Candida Poole Attending Clinician Maggie Luna MD Attending Clinician Alfred Khan MD Attending Clinician [...] Attending Clinician THANH GAY Attending Clinician Unavailable Arely Morales OD Attending Clinician ARELY MORALES Attending Clinician Unavailable Sindy Oneill MD Attending Clinician SINDY ONEILL Attending Clinician Unavailable Kory Matos MD Attending Clinician [phone] TOBI OLVERA Attending Clinician Unavailable TOBI OLVERA [...] Clinician Unavailable Pcp-Lab Attending Clinician Unavailable Pb BRYSON, Salvatore Attending Clinician MILO [place] Attending Clinician Unavailable Johan Cuellar Attending Clinician Hernando BRYSON, Trell Nash Attending Clinician Elizabeth Moss MD, Milo Attending Clinician Alvarez BRYSON, Rosanne Hawk Attending Clinician SHANNEN SIN Attending Clinician Unavailable ALYSSA WU Attending Clinician Unavailable Juan Butler MD Attending Clinician Marleen Attending Clinician Unavailable PATI HONEYCUTT Attending Clinician Unavailable Elver Cyr MD Attending Clinician [phone] Belia Metz MD Attending Clinician Nicky Longo RN Attending Clinician Mary Howell MD Attending Clinician Mikey Marquez MD Attending Clinician [phone] Emiliano Cheung MD Attending Clinician Sean Antoine Attending Clinician Unavailable ZHEN ZEPEDA M.D. Attending Clinician Unavailable RICHARD BRYAN Attending Clinician Unavailable JUMANA SOLO Attending Clinician Unavailable MATT RAMOS Attending Clinician Unavailable MIKAELA MAN Attending Clinician Unavailable STEVEN WILLINGHAM Attending Clinician Unavailable EKRRY PUTNAM Attending Clinician Unavailable Talat Porter Attending Clinician Unavailable Driss Bain Attending Clinician Unavailable BELLE CATES Admitting Clinician Unavailable CANDIDA PAUL Admitting Clinician Unavailable CINTHIA Admitting Clinician Unavailable BLESSING YANES Admitting Clinician Unavailable Mariola Romero Admitting Clinician Unavailable CASS CRESPO Admitting Clinician Unavailable SINDY ONEILL Admitting Clinician Unavailable Marleen Admitting Clinician Unavailable Alma BRYSON, Mikey Admitting Clinician [phone] Sean Antoine Admitting Clinician Unavailable MATT RAMOS Admitting Clinician Unavailable Payers Payer Name Policy Type Policy Number Effective Date Expiration Date Micheline holloway [employer] MEDICARE [id number] 2022 00:00:00 MEDICAID [facility] [id number] 2022 00:00:00 WELLMED/C DUAL [id number] 2021 COMP HMO D SNP 00:00:00 [place] [id number] 2018 00:00:00 [facility] [id number] DUAL COMPLETE - DUAL ELIGIBLE - SNP (MEDICARE-MEDICAID REPLACEMENT HMO) CIGNA TOTAL CARE [id number] 2020 MEDICARE HMO DSNP 00:00:00 MEDICARE-PART B 5 [id number] 2020 00:00:00 [facility] [id number] 2017 DUAL COMPLETE 00:00:00 [place]: ACS - [id number] TMHP - TRADITIONAL Problems Condition Condition Condition Status Onset Resolution Last Treating Co mments Source Name Details Category Date Date Treatment Clinician Date Subdural Subdural Disease Recurre [facility] [place] [address] [facility] Fatty Fatty Disease Active 2021-05 Univers liver liver 0-06 ity of 00:00: [place] 00 Medical Branch Elevated Elevated Disease Active Unive rs AST (SGOT) AST (SGOT) 9-26 it y of 00:00: [place] [facility] History of History of Disease Active U nivers transient transient 5-05 ity of ischemic ischemic 00:00: [place] attack attack 00 Medical (TIA) (TIA) Branch Chest pain Chest pain Disease Active U nivers 7-23 ity of 00:00: [place] [facility] Generalize Generalize Disease Active 2017-05 [...] nce 7-30 ity of stenosis stenosis 00:00: [place] of of 00 Medical multiple multiple Branch and and 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 Type 2 Type 2 Disease Recurre Univers diabetes diabetes nce 7-30 ity of mellitus mellitus 00:00: [place] with other with other 00 Me dical specified specified Bran ch complicati complicati on on SANDHYA SANDHYA Disease Recurre Univers (obstructi (obstructi nce 7-30 it y of ve sleep ve sleep 00:00: [place] apnea) apnea) 00 Medical Branch Essential Essential Disease Active Met hodi hypertensi hypertensi [address] on on 00:00: Hospita 00 l Mixed Mixed Disease Active Methodi hyperlipid hyperlipid [address] emia emia 00:00: Hospita 00 l [...] ents Source Name Type Date Date Clinician ATORVAST Allergy Active Low Palpitations 2022-0 S [facility] ATIN 7-12 00:00: 00 IODINE Allergy Active High Anaphylaxis 3-0 [facility] 7-12 00:00: 00 Shellfis Propensi Active Anaphylaxis 3-[address] h ty to 7-12 [facility] Containi adverse 00:00: Medical ng reaction 00 Center Products s Atorvast Propensi Active Palpitations 2022-[address] atin ty to 7-12 [facility] adverse 00:00: Medical reaction 00 Center s Iodine Propensi Active Anaphylaxis 2022-[address] ty to 7-12 [facility] adverse 00:00: Medical reaction 00 Center s Lisinopr Propensi Active Shortness Of 2022-[address] il ty to Breath -12 [facility] adverse 00:00: Medical reaction 00 Center s Ropiniro Propensi Active Other (See 2022-[address] le ty to Comments) 712 [facility] adverse 00:00: Medical reaction 00 Center s Shellfis Propensi Active Anaphylaxis 3-[address] h ty to 7-12 [facility] Derived adverse 00:00: Medical reaction 00 Center s LISINOPR Allergy Active High Sob 2022-0 [facility] [place] 7-12 00:00: 00 SHELLFIS Allergy Active High Anaphylaxis 3-0 SL [facility] H 7-12 DERIVED 00:00: 00 SHELLFIS Allergy Active High Anaphylaxis 3-0 SL HV H 7-12 CONTAINI 00:00: NG 00 PRODUCTS ROPINIRO Allergy Active Other 2022-0 [facility] LE 12 00:00: 00 Seafood/ Food Active Anaphylaxis 2019-0 Uni vers Fish Allergy 7-23 ity of 00:00: [address] Branch SEAFOOD/ Food Active High Anaphylaxis 2019-0 Uni vers FISH 7-23 ity of 00:00: [address] Branch lisinopr DA Active CO 2018-0 [facility] 4-05 [facility] 00:00: d 00 [facility] iodine DA Active SV 2018-0 [facility] 4-05 [facility] 00:00: d 00 [facility] lorazepa DA Active MO 2018-0 [facility] m 4-05 [facility] 00:00: d 00 [facility] aspirin DA Active CO 2018- [facility] 4-05 [facility] 00:00: d 00 [facility] Center ropiniro DA Active CO 2019-0 [facility] le 4-05 [facility] 00:00: d 00 [facility] Center lisinopr DA Active CO 2019-0 [facility] il 3-31 [facility] 00:00: d 00 [facility] Center iodine DA Active SV 2019-0 [facility] 3- [facility] 00:00: d 00 [facility] Center lorazepa DA Active MO 2019-0 [facility] m 3-31 [facility] 00:00: d 00 [facility] Center aspirin DA Active CO 2019-0 [facility] 3- [facility] 00:00: d 00 [facility] Center ropiniro DA Active CO 2019-0 [facility] le 3- [facility] 00:00: d 00 Medical Center iodine DA Active SV 2019-0 [facility] 1-05 [facility] 00:00: d 00 [facility] Center lisinopr DA Active CO 2019-0 [facility] il 1- [facility] 00:00: d 00 [facility] Center iodine DA Active CO 2019-0 [facility] 1- [facility] 00:00: d 00 [facility] Center lorazepa DA Active MO 2019-0 [facility] m 1- [facility] 00:00: d 00 [facility] Center aspirin DA Active CO 2019-0 [facility] 1- [facility] 00:00: d 00 [facility] Center ropiniro DA Active CO 2019-0 [facility] le 1- [facility] 00:00: d 00 [facility] Lisinopr Propensi Active Cough 2017- Persisten Uni vers il ty to 0-17 t cough ity of adverse 00:00: [place] reaction 00 Medical s to Branch drug LISINOPR DRUG Active Med COUGH 2017-1 Univers [place] INGREDI 0-17 ity of 00:00: [place] 00 Medical Branch lorazepa DA Active MO 2018-1 [facility] m 0-14 [facility] 00:00: d 00 [facility] lisinopr DA Active CO 2018-0 [facility] il 8-25 Clear 00:00: [place] 00 [facility] iodine DA Active CO 2018-0 [facility] 8-25 Clear 00:00: [place] 00 [facility] aspirin DA Active CO 2018-0 [facility] 8-25 Clear 00:00: [place] 00 [facility] ropiniro DA Active CO 2018-0 [facility] le 8-25 Clear 00:00: [place] 00 [facility] Atorvast Propensi Active Other - See 2018-0 CoughCou g Univers atin ty to comments 7-30 h ity of adverse 00:00: [place] reaction 00 Medical s Branch ATORVAST DRUG Active Low Unknown-Cmnt 2017-0 Un alfonso ATIN INGREDI 12-09 ity of 00:00: [place] [facility] Atorvast Propensi Active Other (See 2018-0 Cough Me thodi atin ty to Comments) [...] s Branch ASPIRIN DRUG Active High Other-Cmnt 2016- Unive rs INGREDI 10-11 ity of 00:00: Medical Branch ROPINIRO DRUG Active High Other-Cmnt Univ ers LE INGREDI 10-11 ity of 00:00: Medical Branch SHELLFIS DRUG Active High Palpitations 2016- Un alfonso H INGREDI 10-11 ity of DERIVED 00:00: Medical Branch Aspirin Propensi Active GI Bleeding 2016- GI Me thodi ty to 10-[address] adverse 00:00: Hospita reaction 00 l s to drug Other Propensi Active Anesthesi Metho di ty to 10-11 a: during st adverse 00:00: [facility] a reaction 00 er and l s back surgery pt went into cardiac arrest. ([facility]) . Ropiniro Propensi Active Hypotensi Met [...] 00 Medical Branch Iodine Propensi Active Hives 2008-0 IV iodine Metho di ty to 05-[address] adverse 00:00: iodine Hospita reaction 00 -Cardiac l s to arrest drug Iodine drug Active [facility] allergy Physici ans NO KNOWN Allergy Active [facility] Family History Family Member Diagnosis Comments Start Date Stop Date Source Maternal grandfather No Known Problems [facility] Paternal grandfather No Known Problems [facility] Paternal grandmother No Known Problems [facility] Natural father Hypertension [facility] Natural father Stroke [facility] Natural father Diabetes type II Meth [facility] Maternal grandmother Cancer Meth [facility] Maternal grandmother Diabetes Meth [facility] Natural mother Diabetes [facility] Natural mother Hypertension [facility] Natural mother Stroke [facility] Natural sister Cancer [facility] Natural sister Diabetes type II Meth [facility] Natural sister Ovarian cancer Method [facility] Natural brother Leukemia [facility] Social History Social Habit Start Date Stop Date Quantity Comments Source [facility] [place] Sexual orientation Method [facility] Exposure to 2022-03-24 2022-04-03 Not sure [facility]-CoV-2 (event) 00:00:00 13:26:00 [facility] Tobacco use and 2022-02-02 2022-02-02 Smokeless Universit y of exposure 00:00:00 00:00:00 tobacco non-user [facility] History of Social 2019-01-02 2019-01-[address] function 00:00:00 00:00:00 Hospital Alcohol intake 2018-05-01 2018-05-01 Current Cheondoism 00:00:00 00:00:00 non-drinker of Hospital alcohol (finding) Sex Ass[birth year] [facility] kes 00:00:00 00:00:00 [facility] Center Smoking Status Start Date Stop Date Source Never smoked tobacco [facility] Medications Ordered Filled Start Stop Current Ordering Indication Dosage Frequency Signature Comments Components Source Medication Medication Date Date Medication? Clinician (SIG) Name Name acetaminoph 2022- No 1000mg 1,000 mg, Univers en 01-22 Oral, ity of (TYLENOL) 02:00: 01:52 [place]CE, 1 [place] tablet [place] :[place] dose, On Medical 1,000 mg Mon Branch 01/21/23 at 2100, GARY metoclopram 2023-0 2023- No 10mg 10 mg, Uni vers enriqueta HCl 01-22 Slow IV ity of (REGLAN) 02:00: 01:52 Push, [place] injection 00 :00 ONCE, 1 Medical 10 mg dose, On Branch 01/21/23 at 2100, GARY mupirocin 2 2022-0 Yes [id number] Apply to Univers % ointment 8-23 area(s) 3 ity of 00:00: (three) [place] 00 times Medical daily. Branch mupirocin 2 2022-0 Yes [id number] Apply to Univers % ointment 8-23 area(s) 3 ity of 00:00: (three) [place] 00 times Medical daily. Branch mupirocin 2 2022-0 Yes [id number] Apply to Univers % ointment 8-23 area(s) 3 ity of 00:00: (three) [place] 00 times Medical daily. Branch mupirocin 2 2022-0 Yes [id number] Apply to Univers % ointment 8-23 area(s) 3 ity of 00:00: (three) [place] 00 times Medical daily. Branch mupirocin 2 2022-0 Yes [id number] Apply to Univers % ointment 8-23 area(s) 3 ity of 00:00: (three) [place] 00 times Medical daily. Branch mupirocin 2 2022-0 Yes [id number] Apply to Univers % ointment 8-23 area(s) 3 ity of 00:00: (three) [place] 00 times Medical daily. Branch mupirocin 2 2022-0 Yes [id number] Apply to Univers % ointment 8-23 area(s) 3 ity of 00:00: (three) [place] 00 times Medical daily. Branch mupirocin 2 2022-0 Yes [id number] Apply to Univers % ointment 8-23 area(s) 3 ity of 00:00: (three) [place] 00 times Medical daily. Branch mupirocin 2 2022-0 Yes [id number] Apply to Univers % ointment 8-23 area(s) 3 ity of 00:00: (three) [place] 00 times Medical daily. Branch mupirocin 2 2022-0 Yes [id number] Apply to Univers % ointment 8-23 area(s) 3 ity of 00:00: (three) [place] 00 times Medical daily. Branch mupirocin 2 2022-0 Yes [id number] Apply to Univers % ointment 8-23 area(s) 3 ity of 00:00: (three) [place] 00 times Medical daily. Branch mupirocin 2 2022-0 Yes [id number] Apply to Univers % ointment 8-23 area(s) 3 ity of 00:00: (three) [place] 00 times Medical daily. Branch mupirocin 2 2022-0 Yes [id number] Apply to Univers % ointment 8-23 area(s) 3 ity of 00:00: (three) [place] 00 times Medical daily. Branch MONTELUKAST 0 Yes [id number] TAKE 1 Univers 10 mg 8-10 TABLET BY ity of tablet 00:00: MOUTH IN [place] 00 THE Medical MORNING Branch MONTELUKAST 2022-0 Yes [id number] TAKE 1 Univers 10 mg 8-10 TABLET BY ity of tablet 00:00: MOUTH IN [place] 00 THE Medical MORNING Branch MONTELUKAST 2022-0 Yes [id number] TAKE 1 Univers 10 mg 8-10 TABLET BY ity of tablet 00:00: MOUTH IN [place] 00 THE Medical MORNING Branch MONTELUKAST 2022-0 Yes [id number] TAKE 1 Univers 10 mg 8-10 TABLET BY ity of tablet 00:00: MOUTH IN [place] 00 THE Medical MORNING Branch MONTELUKAST 2022-0 Yes [id number] TAKE 1 Univers 10 mg 8-10 TABLET BY ity of tablet 00:00: MOUTH IN [place] 00 THE Medical MORNING Branch MONTELUKAST 2022-0 Yes [id number] TAKE 1 Univers 10 mg 8-10 TABLET BY ity of tablet 00:00: MOUTH IN [place] 00 THE Medical MORNING Branch MONTELUKAST 2022-0 Yes [id number] TAKE 1 Univers 10 mg 8-10 TABLET BY ity of tablet 00:00: MOUTH IN [place] 00 THE Medical MORNING Branch MONTELUKAST 2022-0 Yes [id number] TAKE 1 Univers 10 mg 8-10 TABLET BY ity of tablet 00:00: MOUTH IN [place] 00 THE Medical MORNING Branch MONTELUKAST 2022-0 Yes [id number] TAKE 1 Univers 10 mg 8-10 TABLET BY ity of tablet 00:00: MOUTH IN [place] 00 THE Medical MORNING Branch MONTELUKAST 0 Yes [id number] TAKE 1 Univers 10 mg 8-10 TABLET BY ity of tablet 00:00: MOUTH IN [place] 00 THE Medical MORNING Branch MONTELUKAST 0 Yes [id number] TAKE 1 Univers 10 mg 8-10 TABLET BY ity of tablet 00:00: MOUTH IN [place] 00 THE Medical MORNING Branch MONTELUKAST 2022-0 Yes [id number] TAKE 1 Univers 10 mg 8-10 TABLET BY ity of tablet 00:00: MOUTH IN [place] 00 THE Medical MORNING Branch MONTELUKAST 2022-0 Yes [id number] TAKE 1 Univers 10 mg 8-10 TABLET BY ity of tablet 00:00: MOUTH IN [place] 00 THE Medical MORNING Branch MONTELUKAST 2022-0 Yes [id number] TAKE 1 Univers 10 mg 8-10 TABLET BY ity of tablet 00:00: MOUTH IN [place] 00 THE Medical MORNING Branch MONTELUKAST 2022-0 Yes [id number] TAKE 1 Univers 10 mg 8-10 TABLET BY ity of tablet 00:00: MOUTH IN [place] 00 THE Medical MORNING Branch MONTELUKAST 2022-0 Yes [id number] TAKE 1 Univers 10 mg 8-10 TABLET BY ity of tablet 00:00: MOUTH IN [place] 00 THE Medical MORNING Branch MONTELUKAST 2022-0 Yes [id number] TAKE 1 Univers 10 mg 8-10 TABLET BY ity of tablet 00:00: MOUTH IN [place] 00 THE Medical MORNING Branch MONTELUKAST 2022-0 Yes [id number] TAKE 1 Univers 10 mg 8-10 TABLET BY ity of tablet 00:00: MOUTH IN [place] 00 THE Medical MORNING Branch MONTELUKAST 2022-0 Yes [id number] TAKE 1 Univers 10 mg 8-10 TABLET BY ity of tablet 00:00: MOUTH IN [place] 00 THE Medical MORNING Branch MONTELUKAST 2022-0 Yes [id number] TAKE 1 Univers 10 mg 8-10 TABLET BY ity of tablet 00:00: MOUTH IN [place] 00 THE Medical MORNING Branch metoprolol 2022-0 3- No 25mg Take 1 Univ ers tartrate 25 7-19 07-19 tablet by it y of mg tablet 12:20: 00:00 mouth in [facility] as 19 :00 the Medical morning Branch [...] 1 tablet in the evening. metFORMIN Yes [id number] 1000mg Take 1 Univers 1,000 mg 7-19 tablet by ity of tablet 00:00: mouth in [place] 00 the Medical morning Branch and 1 tablet in the evening. Take with meals. MUST BE SEEN FOR FURTHER REFILLS pantoprazol Yes [id number] 40mg Take 1 Univers e 40 mg EC 7-19 tablet by ity of tablet 00:00: mouth in [place] 00 the Medical morning. Branch metoprolol Yes [id number] 25mg Take 1 U nivers tartrate 25 7-19 tablet by ity of mg tablet 00:00: [place] the Medical morning Branch and 1 tablet in the evening. Blood-Gluco Yes [id number] Use as Univers se Meter 7-19 directed. ity of (ONETOUCH 00:00: May [place] VERIO FLEX 00 substitute Med ical START) Kit brand Branch preferred by insurance blood sugar Yes [id number] Test bid Univers diagnostic 7-19 daily for ity of (ONETOUCH 00:00: diagnosis Adrien as VERIO TEST 00 code E11.9 Med ical STRIPS) May Branch strip substitute brand preferred by insurance Lancing Yes [id number] Test bid Un alfonso Device with 7-19 daily. Use it y of Lancets 00:00: as [place] (ONE TOUCH 00 directed. Medi lula DELICA) Kit May Branch substitute brand preferred by insurance metFORMIN Yes [id number] 1000mg Take 1 Univers 1,000 mg 7-19 tablet by ity of tablet 00:00: mouth in [place] 00 the Medical morning Branch and 1 tablet in the evening. Take with meals. MUST BE SEEN FOR FURTHER REFILLS pantoprazol 2022-0 Yes [id number] 40mg Take 1 Univers e 40 mg EC 7-19 tablet by ity of tablet 00:00: mouth in [place] 00 the Medical morning. Branch metoprolol 2022-0 Yes [id number] 25mg Take 1 U nivers tartrate 25 7-19 tablet by ity of mg tablet 00:00: [place] the Medical morning Branch and 1 tablet in the evening. Blood-Gluco 2022-0 Yes [id number] Use as Univers se Meter 7-19 directed. ity of (ONETOUCH 00:00: May [place] VERIO FLEX 00 substitute Med ical START) Kit brand Branch preferred by insurance blood sugar 0 Yes [id number] Test bid Univers diagnostic 7-19 daily for ity of (ONETOUCH 00:00: diagnosis Adrien as VERIO TEST 00 code E11.9 Med ical STRIPS) May Branch strip substitute brand preferred by insurance Lancing Yes [id number] Test bid Un alfonso Device with 7-19 daily. Use it y of Lancets 00:00: as [place] (ONE TOUCH 00 directed. Medi lula DELICA) Kit May Branch substitute brand preferred by insurance metFORMIN Yes [id number] 1000mg Take 1 Univers 1,000 mg 7-19 tablet by ity of tablet 00:00: mouth in [place] the Medical morning Branch and 1 tablet in the evening. Take with meals. MUST BE SEEN FOR FURTHER REFILLS pantoprazol 2022-0 Yes [id number] 40mg Take 1 Univers e 40 mg EC 7-19 tablet by ity of tablet 00:00: mouth in [place] 00 the Medical morning. Branch metoprolol 2022-0 Yes [id number] 25mg Take 1 U nivers tartrate 25 7-19 tablet by ity of mg tablet 00:00: [place] the Medical morning Branch and 1 tablet in the evening. Blood-Gluco 2022-0 Yes [id number] Use as Univers se Meter 7-19 directed. ity of (ONETOUCH 00:00: May [place] VERIO FLEX 00 substitute Med ical START) Kit brand Branch preferred by insurance blood sugar 2023-0 Yes [id number] Test bid Univers diagnostic 7-19 daily for ity of (ONETOUCH 00:00: diagnosis [place] as VERIO TEST 00 code E11.9 Med ical STRIPS) May Branch strip substitute brand preferred by insurance Lancing Yes [id number] Test bid Un alfonso Device with 7-19 daily. Use it y of Lancets 00:00: as [place] (ONE TOUCH 00 directed. Medi lula DELICA) Kit May Branch substitute brand preferred by insurance metFORMIN Yes [id number] 1000mg Take 1 Univers 1,000 mg 7-19 tablet by ity of tablet 00:00: mouth in [place] 00 the Medical morning Branch and 1 tablet in the evening. Take with meals. MUST BE SEEN FOR FURTHER REFILLS pantoprazol 0 Yes [id number] 40mg Take 1 Univers e 40 mg EC 7-19 tablet by ity of tablet 00:00: mouth in [place] 00 the Medical morning. Branch metoprolol Yes [id number] 25mg Take 1 U nivers tartrate 25 7-19 tablet by ity of mg tablet 00:00: mouth in [facility] 00 the Medical morning Branch and 1 tablet in the evening. Blood-Gluco Yes [id number] Use as Univers se Meter 7-19 directed. ity of (ONETOUCH 00:00: May [place] VERIO FLEX 00 substitute Med ical START) Kit brand Branch preferred by insurance blood sugar 0 Yes [id number] Test bid Univers diagnostic 7-19 daily for ity of (ONETOUCH 00:00: diagnosis [place] as VERIO TEST 00 code E11.9 Med ical STRIPS) May Branch strip substitute brand preferred by insurance Lancing Yes [id number] Test bid Un alfonso Device with 7-19 daily. Use it y of Lancets 00:00: as [place] (ONE TOUCH 00 directed. Medi lula DELICA) Kit May Branch substitute brand preferred by insurance metFORMIN 0 Yes [id number] 1000mg Take 1 Univers 1,000 mg 7-19 tablet by ity of tablet 00:00: mouth in [place] 00 the Medical morning Branch and 1 tablet in the evening. Take with meals. MUST BE SEEN FOR FURTHER REFILLS pantoprazol 2022-0 Yes [id number] 40mg Take 1 Univers e 40 mg EC 7-19 tablet by ity of tablet 00:00: mouth in [place] the Medical morning. Branch metoprolol Yes [id number] 25mg Take 1 U nivers tartrate 25 7-19 tablet by ity of mg tablet 00:00: mouth in [facility] the Medical morning Branch and 1 tablet in the evening. Blood-Gluco 2022-0 Yes [id number] Use as Univers se Meter 7-19 directed. ity of (ONETOUCH 00:00: May [place] VERIO FLEX 00 substitute Med ical START) Kit brand Branch preferred by insurance blood sugar 2022-0 Yes [id number] Test bid [facility] diagnostic 7-19 daily for ity of (ONETOUCH 00:00: diagnosis [place]rien as VERIO TEST 00 code E11.9 Med ical STRIPS) May Branch strip substitute brand preferred by insurance Lancing Yes [id number] Test bid Un alfonso Device with 7-19 daily. Use it y of Lancets 00:00: as [place] (ONE TOUCH 00 directed. Medi lula DELICA) Kit May Branch substitute brand preferred by insurance metFORMIN Yes [id number] 1000mg Take 1 Univers 1,000 mg 7-19 tablet by ity of tablet 00:00: mouth in [place] the Medical morning Branch and 1 tablet in the evening. Take with meals. MUST BE SEEN FOR FURTHER REFILLS pantoprazol 0 Yes [id number] 40mg Take 1 Univers e 40 mg EC 7-19 tablet by ity of tablet 00:00: mouth in [place] the Medical morning. Branch metoprolol Yes [id number] 25mg Take 1 U nivers tartrate 25 7-19 tablet by ity of mg tablet 00:00: mouth in [facility] the Medical morning Branch and 1 tablet in the evening. Blood-Gluco 2022-0 Yes [id number] Use as Univers se Meter 7-19 directed. ity of (ONETOUCH 00:00: May [place] VERIO FLEX 00 substitute Med ical START) Kit brand Branch preferred by insurance blood sugar 2022-0 Yes [id number] Test bid [facility] diagnostic 7-19 daily for ity of (ONETOUCH 00:00: diagnosis Adrien as VERIO TEST 00 code E11.9 Med ical STRIPS) May Branch strip substitute brand preferred by insurance Lancing 2022-0 Yes [id number] Test bid Un alfonso Device with 7-19 daily. Use it y of Lancets 00:00: as [place] (ONE TOUCH 00 directed. [facility] lula DELICA) Kit May Branch substitute brand preferred by insurance metFORMIN 2022-0 Yes [id number] 1000mg Take 1 Univers 1,000 mg 7-19 tablet by ity of tablet 00:00: mouth in [place] the Medical morning Branch and 1 tablet in the evening. Take with meals. MUST BE SEEN FOR FURTHER REFILLS pantoprazol 2022-0 Yes [id number] 40mg Take 1 Univers e 40 mg EC 7-19 tablet by ity of tablet 00:00: mouth in [place] the morning. Branch metoprolol 2022-0 Yes [id number] 25mg Take 1 U nivers tartrate 25 7-19 tablet by ity of mg tablet 00:00: mouth in [facility] the morning Branch and 1 tablet in the evening. Blood-Gluco 2022-0 Yes [id number] Use as Univers se Meter 7-19 directed. ity of (ONETOUCH 00:00: September [place] VERIO FLEX 00 substitute Med ical START) Kit brand Branch preferred by insurance blood sugar 2022-0 Yes [id number] Test bid [facility] diagnostic 7-19 daily for ity of (ONETOUCH 00:00: diagnosis [place]rien as VERIO TEST 00 code E11.9 Med ical STRIPS) May Branch strip substitute brand preferred by insurance Lancing 2022-0 Yes [id number] Test bid Un alfon[place] Device with 7-19 daily. Use it y of Lancets 00:00: as [place] (ONE TOUCH 00 directed. [facility] lula DELICA) Kit May Branch substitute brand preferred by insurance metFORMIN 2022-0 Yes [id number] 1000mg Take 1 Univers 1,000 mg 7-19 tablet by ity of tablet 00:00: mouth in [place] the Medical morning Branch and 1 tablet in the evening. Take with meals. MUST BE SEEN FOR FURTHER REFILLS pantoprazol 2022-0 Yes [id number] 40mg Take 1 Univers e 40 mg EC 7-19 tablet by ity of tablet 00:00: mouth in [place] the morning. Branch metoprolol 2022-0 Yes [id number] 25mg Take 1 U nivers tartrate 25 7-19 tablet by ity of mg tablet 00:00: mouth in [facility] the Medical morning Branch and 1 tablet in the evening. Blood-Gluco 2023-0 Yes [id number] Use as Univers se Meter 7-19 directed. ity of (ONETOUCH 00:00: May [place] VERIO FLEX 00 substitute Med ical START) Kit brand Branch preferred by insurance blood sugar Yes [id number] Test bid [facility] diagnostic 7-19 daily for ity of (ONETOUCH 00:00: diagnosis [place]rien as VERIO TEST 00 code E11.9 Med ical STRIPS) May Branch strip substitute brand preferred by insurance Lancing Yes [id number] Test bid Un alfonso Device with 7-19 daily. Use it y of Lancets 00:00: as [place] (ONE TOUCH 00 directed. Medi lula DELICA) Kit May Branch substitute brand preferred by insurance metFORMIN Yes [id number] 1000mg Take 1 Univers 1,000 mg 7-19 tablet by ity of tablet 00:00: mouth in [place] the Medical morning Branch and 1 tablet in the evening. Take with meals. MUST BE SEEN FOR FURTHER REFILLS pantoprazol Yes [id number] 40mg Take 1 Univers e 40 mg EC 7-19 tablet by ity of tablet 00:00: mouth in [place] the Medical morning. Branch metoprolol Yes [id number] 25mg Take 1 U nivers tartrate 25 7-19 tablet by ity of mg tablet 00:00: mouth in [facility] the Medical morning Branch and 1 tablet in the evening. Blood-Gluco Yes [id number] Use as Univers se Meter 7-19 directed. ity of (ONETOUCH 00:00: September [place] VERIO FLEX 00 substitute Med ical START) Kit brand Branch preferred by insurance blood sugar Yes [id number] Test bid [facility] diagnostic 7-19 daily for ity of (ONETOUCH 00:00: diagnosis [place]rien as VERIO TEST 00 code E11.9 Med ical STRIPS) May Branch strip substitute brand preferred by insurance Lancing Yes [id number] Test bid Un alfon[place] Device with 7-19 daily. Use it y of Lancets 00:00: as [place] (ONE TOUCH 00 directed. Medi lula DELICA) Kit May Branch substitute brand preferred by insurance metFORMIN Yes [id number] 1000mg Take 1 Univers 1,000 mg 7-19 tablet by ity of tablet 00:00: mouth in [place] 00 the Medical morning Branch and 1 tablet in the evening. Take with meals. MUST BE SEEN FOR FURTHER REFILLS pantoprazol Yes [id number] 40mg Take 1 Univers e 40 mg EC 7-19 tablet by ity of tablet 00:00: mouth in [place] 00 the morning. Branch metoprolol Yes [id number] 25mg Take 1 U nivers tartrate 25 7-19 tablet by ity of mg tablet 00:00: [place] the Medical morning Branch and 1 tablet in the evening. Blood-Gluco 2022-0 Yes [id number] Use as [facility] se Meter 7-19 directed. ity of (ONETOUCH 00:00: September [place] VERIO FLEX 00 substitute Med ical START) Kit brand Branch preferred by insurance blood sugar 0 Yes [id number] Test bid [facility] diagnostic 7-19 daily for ity of (ONETOUCH 00:00: diagnosis [place]rien as VERIO TEST 00 code E11.9 Med ical STRIPS) May Branch strip substitute brand preferred by insurance Lancing Yes [id number] Test bid Un [place] Device with 7-19 daily. Use it y of Lancets 00:00: as [place] (ONE TOUCH 00 directed. Medi lula DELICA) Kit May Branch substitute brand preferred by insurance metFORMIN Yes [id number] 1000mg Take 1 Univers 1,000 mg 7-19 tablet by ity of tablet 00:00: mouth in [place] 00 the Medical morning Branch and 1 tablet in the evening. Take with meals. MUST BE SEEN FOR FURTHER REFILLS pantoprazol 0 Yes [id number] 40mg Take 1 Univers e 40 mg EC 7-19 tablet by ity of tablet 00:00: mouth in [place] 00 the morning. Branch metoprolol Yes [id number] 25mg Take 1 U nivers tartrate 25 7-19 tablet by ity of mg tablet 00:00: mouth in [facility] 00 the Medical morning Branch and 1 tablet in the evening. Blood-Gluco 2022-0 Yes [id number] Use as Univers se Meter 7-19 directed. ity of (ONETOUCH 00:00: September [place] VERIO FLEX 00 substitute Med ical START) Kit brand Branch preferred by insurance blood sugar 2022-0 Yes [id number] Test bid [facility] diagnostic 7-19 daily for ity of (ONETOUCH 00:00: diagnosis [place]rien as VERIO TEST 00 code E11.9 Med ical STRIPS) May Branch strip substitute brand preferred by insurance Lancing Yes [id number] Test bid Un [place]fon[place] Device with 7-19 daily. Use it y of Lancets 00:00: as [place] (ONE TOUCH 00 directed. [facility]) Kit May Branch substitute brand preferred by insurance metFORMIN 0 Yes [id number] 1000mg Take 1 Univers 1,000 mg 7-19 tablet by ity of tablet 00:00: mouth in [place] the Medical morning Branch and 1 tablet in the evening. Take with meals. MUST BE SEEN FOR FURTHER REFILLS pantoprazol 0 Yes [id number] 40mg Take 1 Univers e 40 mg EC 7-19 tablet by ity of tablet 00:00: mouth in [place] the Medical morning. Branch metoprolol Yes [id number] 25mg Take 1 U nivers tartrate 25 7-19 tablet by ity of mg tablet 00:00: mouth in [facility] the Medical morning Branch and 1 tablet in the evening. Blood-Gluco Yes [id number] Use as [facility] se Meter 7-19 directed. ity of (ONETOUCH 00:00: May [place] VERIO FLEX 00 substitute Med ical START) Kit brand Branch preferred by insurance blood sugar 0 Yes [id number] Test bid [facility] diagnostic 7-19 daily for ity of (ONETOUCH 00:00: diagnosis [place]rien as VERIO TEST 00 code E11.9 Med ical STRIPS) May Branch strip substitute brand preferred by insurance Lancing Yes [id number] Test bid Un [place] Device with 7-19 daily. Use it y of Lancets 00:00: as [place] (ONE TOUCH 00 directed. [facility]) Kit May Branch substitute brand preferred by insurance metFORMIN 0 Yes [id number] 1000mg Take 1 Univers 1,000 mg 7-19 tablet by ity of tablet 00:00: mouth in [place] the Medical morning Branch and 1 tablet in the evening. Take with meals. MUST BE SEEN FOR FURTHER REFILLS pantoprazol 2022-0 Yes [id number] 40mg Take 1 Univers e 40 mg EC 7-19 tablet by ity of tablet 00:00: mouth in [place] the Medical morning. Branch metoprolol 2023-0 Yes [id number] 25mg Take 1 U nivers tartrate 25 7-19 tablet by ity of mg tablet 00:00: mouth in [facility] the Medical morning Branch and 1 tablet in the evening. Blood-Gluco 2022-0 Yes [id number] Use as Univers se Meter 7-19 directed. ity of (ONETOUCH 00:00: May [place] VERIO FLEX 00 substitute Med ical START) Kit brand Branch preferred by insurance blood sugar 2022-0 Yes [id number] Test bid [facility] diagnostic 7-19 daily for ity of (ONETOUCH 00:00: diagnosis [place]rien as VERIO TEST 00 code E11.9 Med ical STRIPS) May Branch strip substitute brand preferred by insurance Lancing Yes [id number] Test bid Un [place]fon[place] Device with 7-19 daily. Use it y of Lancets 00:00: as [place] (ONE TOUCH 00 directed. [facility]) Kit May Branch substitute brand preferred by insurance metFORMIN 2022-0 Yes [id number] 1000mg Take 1 Univers 1,000 mg 7-19 tablet by ity of tablet 00:00: mouth in the Medical morning Branch and 1 tablet in the evening. Take with meals. MUST BE SEEN FOR FURTHER REFILLS pantoprazol 2022-0 Yes [id number] 40mg Take 1 Univers e 40 mg EC 7-19 tablet by ity of tablet 00:00: mouth in [place] the Medical morning. Branch metoprolol 0 Yes [id number] 25mg Take 1 U nivers tartrate 25 7-19 tablet by ity of mg tablet 00:00: mouth in [facility] the Medical morning Branch and 1 tablet in the evening. Blood-Gluco 2022-0 Yes [id number] Use as Univers se Meter 7-19 directed. ity of (ONETOUCH 00:00: May [place] VERIO FLEX 00 substitute Med ical START) Kit brand Branch preferred by insurance blood sugar 2022-0 Yes [id number] Test bid [facility] diagnostic 7-19 daily for ity of (ONETOUCH 00:00: diagnosis [place]rien as VERIO TEST 00 code E11.9 Med ical STRIPS) May Branch strip substitute brand preferred by insurance Lancing 2022-0 Yes [id number] Test bid Un [place] Device with 7-19 daily. Use it y of Lancets 00:00: as [place] (ONE TOUCH 00 directed. Medi lula DELICA) Kit May Branch substitute brand preferred by insurance metFORMIN 2022-0 Yes [id number] 1000mg Take 1 Univers 1,000 mg 7-19 tablet by ity of tablet 00:00: mouth in [place] 00 the Medical morning Branch and 1 tablet in the evening. Take with meals. MUST BE SEEN FOR FURTHER REFILLS pantoprazol 2022-0 Yes [id number] 40mg Take 1 Univers e 40 mg EC 7-19 tablet by ity of tablet 00:00: mouth in [place] 00 the morning. Branch metoprolol 2022-0 Yes [id number] 25mg Take 1 U nivers tartrate 25 7-19 tablet by ity of mg tablet 00:00: [place] the Medical morning Branch and 1 tablet in the evening. Blood-Gluco 2022-0 Yes [id number] Use as Univers se Meter 7-19 directed. ity of (ONETOUCH 00:00: September [place] VERIO FLEX 00 substitute Med ical START) Kit brand Branch preferred by insurance blood sugar 2022-0 Yes [id number] Test bid [facility] diagnostic 7-19 daily for ity of (ONETOUCH 00:00: diagnosis [place]rien as VERIO TEST 00 code E11.9 Med ical STRIPS) May Branch strip substitute brand preferred by insurance Lancing 2022-0 Yes [id number] Test bid Un [place] Device with 7-19 daily. Use it y of Lancets 00:00: as [place] (ONE TOUCH 00 directed. [facility]) Kit May Branch substitute brand preferred by insurance metFORMIN 2022-0 Yes [id number] 1000mg Take 1 Univers 1,000 mg 7-19 tablet by ity of tablet 00:00: mouth in [place] the Medical morning Branch and 1 tablet in the evening. Take with meals. MUST BE SEEN FOR FURTHER REFILLS pantoprazol 2022-0 Yes [id number] 40mg Take 1 Univers e 40 mg EC 7-19 tablet by ity of tablet 00:00: mouth in [place] 00 the morning. Branch metoprolol 2022-0 Yes [id number] 25mg Take 1 U nivers tartrate 25 7-19 tablet by ity of mg tablet 00:00: [facility] Medical [facility] Branch and 1 tablet in the evening. Blood-Gluco 2022-0 Yes [id number] Use as Univers se Meter 7-19 directed. ity of (ONETOUCH 00:00: May [place] VERIO FLEX 00 substitute Med ical START) Kit brand Branch preferred by insurance blood sugar 0 Yes [id number] Test bid [facility] diagnostic 7-19 daily for ity of (ONETOUCH 00:00: diagnosis [place]rien as VERIO TEST 00 code E11.9 Med ical STRIPS) May Branch strip substitute brand preferred by insurance Lancing 0 Yes [id number] Test bid Un [place] Device with 7-19 daily. Use it y of Lancets 00:00: as [place] (ONE TOUCH 00 directed. Medi lula DELICA) Kit May Branch substitute brand preferred by insurance metFORMIN Yes [id number] 1000mg Take 1 Univers 1,000 mg 7-19 tablet by ity of tablet 00:00: mouth in [place] the Medical morning Branch and 1 tablet in the evening. Take with meals. MUST BE SEEN FOR FURTHER REFILLS pantoprazol Yes [id number] 40mg Take 1 Univers e 40 mg EC 7-19 tablet by ity of tablet 00:00: mouth in [place] the Medical morning. Branch metoprolol Yes [id number] 25mg Take 1 U nivers tartrate 25 7-19 tablet by ity of mg tablet 00:00: mouth in [facility] the Medical morning Branch and 1 tablet in the evening. Blood-Gluco Yes [id number] Use as Univers se Meter 7-19 directed. ity of (ONETOUCH 00:00: May [place] VERIO FLEX 00 substitute Med ical START) Kit brand Branch preferred by insurance blood sugar 0 Yes [id number] Test bid [facility] diagnostic 7-19 daily for ity of (ONETOUCH 00:00: diagnosis [place] as VERIO TEST 00 code E11.9 Med ical STRIPS) May Branch strip substitute brand preferred by insurance Lancing Yes [id number] Test bid Un [place] Device with 7-19 daily. Use it y of Lancets 00:00: as [place] (ONE TOUCH 00 directed. Medi lula DELICA) Kit May Branch substitute brand preferred by insurance metFORMIN 0 Yes [id number] 1000mg Take 1 Univers 1,000 mg 7-19 tablet by ity of tablet 00:00: mouth in [place] the Medical morning Branch and 1 tablet in the evening. Take with meals. MUST BE SEEN FOR FURTHER REFILLS pantoprazol Yes [id number] 40mg Take 1 Univers e 40 mg EC 7-19 tablet by ity of tablet 00:00: mouth in [place] the morning. Branch metoprolol 2022-0 Yes [id number] 25mg Take 1 U nivers tartrate 25 7-19 tablet by ity of mg tablet 00:00: [place] the Medical morning Branch and 1 tablet in the evening. Blood-Gluco 2022-0 Yes [id number] Use as Univers se Meter 7-19 directed. ity of (ONETOUCH 00:00: September [place] VERIO FLEX 00 substitute Med ical START) Kit brand Branch preferred by insurance blood sugar 2022-0 Yes [id number] Test bid [facility] diagnostic 7-19 daily for ity of (ONETOUCH 00:00: diagnosis [place]rien as VERIO TEST 00 code E11.9 Med ical STRIPS) May Branch strip substitute brand preferred by insurance Lancing 2022-0 Yes [id number] Test bid Un [place] Device with 7-19 daily. Use it y of Lancets 00:00: as [place] (ONE TOUCH 00 directed. Medi lula DELICA) Kit May Branch substitute brand preferred by insurance metFORMIN 0 Yes [id number] 1000mg Take 1 Univers 1,000 mg 7-19 tablet by ity of tablet 00:00: mouth in [place] the morning Branch and 1 tablet in the evening. Take with meals. MUST BE SEEN FOR FURTHER REFILLS pantoprazol 2022-0 Yes [id number] 40mg Take 1 Univers e 40 mg EC 7-19 tablet by ity of tablet 00:00: mouth in [place] the morning. Branch metoprolol 2022-0 Yes [id number] 25mg Take 1 U nivers tartrate 25 7-19 tablet by ity of mg tablet 00:00: [place] the Medical morning Branch and 1 tablet in the evening. Blood-Gluco 2022-0 Yes [id number] Use as Univers se Meter 7-19 directed. ity of (ONETOUCH 00:00: May [place] VERIO FLEX 00 substitute Med ical START) Kit brand Branch preferred by insurance blood sugar 2022-0 Yes [id number] Test bid [facility] diagnostic 7-19 daily for ity of (ONETOUCH 00:00: diagnosis [place]rien as VERIO TEST 00 code E11.9 Med ical STRIPS) May Branch strip substitute brand preferred by insurance Lancing Yes [id number] Test bid Un [place] Device with 7-19 daily. Use it y of Lancets 00:00: as [place] (ONE TOUCH 00 directed. [facility]) Kit May Branch substitute brand preferred by insurance metFORMIN 0 Yes [id number] 1000mg Take 1 Univers 1,000 mg 7-19 tablet by ity of tablet 00:00: mouth in [place] the Medical morning Branch and 1 tablet in the evening. Take with meals. MUST BE SEEN FOR FURTHER REFILLS pantoprazol 0 Yes [id number] 40mg Take 1 Univers e 40 mg EC 7-19 tablet by ity of tablet 00:00: mouth in [place] the Medical morning. Branch metoprolol Yes [id number] 25mg Take 1 U nivers tartrate 25 7-19 tablet by ity of mg tablet 00:00: mouth in [facility] the Medical morning Branch and 1 tablet in the evening. Blood-Gluco Yes [id number] Use as Univers se Meter 7-19 directed. ity of (ONETOUCH 00:00: May [place] VERIO FLEX 00 substitute Med ical START) Kit brand Branch preferred by insurance blood sugar 0 Yes [id number] Test bid [facility] diagnostic 7-19 daily for ity of (ONETOUCH 00:00: diagnosis Adrien as VERIO TEST 00 code E11.9 Med ical STRIPS) May Branch strip substitute brand preferred by insurance Lancing 0 Yes [id number] Test bid Un alfonso Device with 7-19 daily. Use it y of Lancets 00:00: as [place] (ONE TOUCH 00 directed. [facility]) Kit May Branch substitute brand preferred by insurance metFORMIN Yes [id number] 1000mg Take 1 Univers 1,000 mg 7-19 tablet by ity of tablet 00:00: mouth in [place] the Medical morning Branch and 1 tablet in the evening. Take with meals. MUST BE SEEN FOR FURTHER REFILLS pantoprazol 2022-0 Yes [id number] 40mg Take 1 Univers e 40 mg EC 7-19 tablet by ity of tablet 00:00: mouth in [place] the Medical morning. Branch metoprolol 2022-0 Yes [id number] 25mg Take 1 U nivers tartrate 25 7-19 tablet by ity of mg tablet 00:00: mouth in s the Medical morning Branch and 1 tablet in the evening. Blood-Gluco 0 Yes [id number] Use as Univers se Meter 7-19 directed. ity of (ONETOUCH 00:00: May [place] VERIO FLEX 00 substitute Med ical START) Kit brand Branch preferred by insurance blood sugar 0 Yes [id number] Test bid [facility] diagnostic 7-19 daily for ity of (ONETOUCH 00:00: diagnosis Adrien as VERIO TEST 00 code E11.9 Med ical STRIPS) May Branch strip substitute brand preferred by insurance Lancing Yes [id number] Test bid Un [place]fon[place] Device with 7-19 daily. Use it y of Lancets 00:00: as [place] (ONE TOUCH 00 directed. Medi lula DELICA) Kit May Branch substitute brand preferred by insurance metFORMIN 0 Yes [id number] 1000mg Take 1 Univers 1,000 mg 7-19 tablet by ity of tablet 00:00: mouth in the Medical morning Branch and 1 tablet in the evening. Take with meals. MUST BE SEEN FOR FURTHER REFILLS pantoprazol 0 Yes [id number] 40mg Take 1 Univers e 40 mg EC 7-19 tablet by ity of tablet 00:00: mouth in the Medical morning. Branch metoprolol 0 Yes [id number] 25mg Take 1 U nivers tartrate 25 7-19 tablet by ity of mg tablet 00:00: [facility] Branch and 1 tablet in the evening. Blood-Gluco 2022-0 Yes [id number] Use as Univers se Meter 7-19 directed. ity of (ONETOUCH 00:00: September [place] VERIO FLEX 00 substitute Med ical START) Kit brand Branch preferred by insurance blood sugar 0 Yes [id number] Test bid [facility] diagnostic 7-19 daily for ity of (ONETOUCH 00:00: diagnosis [place]rien as VERIO TEST 00 code E11.9 Med ical STRIPS) May Branch strip substitute brand preferred by insurance Lancing 0 Yes [id number] Test bid Un [place]fon[place] Device with 7-19 daily. Use it y of Lancets 00:00: as [place] (ONE TOUCH 00 directed. Medi lula DELICA) Kit May Branch substitute brand preferred by insurance metFORMIN 0 Yes [id number] 1000mg Take 1 Univers 1,000 mg 7-19 tablet by ity of tablet 00:00: mouth in [place] the Medical morning Branch and 1 tablet in the evening. Take with meals. MUST BE SEEN FOR FURTHER REFILLS pantoprazol 2022-0 Yes [id number] 40mg Take 1 Univers e 40 mg EC 7-19 tablet by ity of tablet 00:00: mouth in [place] the Medical morning. Branch metoprolol 2022-0 Yes [id number] 25mg Take 1 U nivers tartrate 25 7-19 tablet by ity of mg tablet 00:00: mouth [place] the Medical morning Branch and 1 tablet in the evening. Blood-Gluco 2022-0 Yes [id number] Use as Univers se Meter 7-19 directed. ity of (ONETOUCH 00:00: May [place] VERIO FLEX 00 substitute Med ical START) Kit brand Branch preferred by insurance blood sugar 2022-0 Yes [id number] Test bid [facility] diagnostic 7-19 daily for ity of (ONETOUCH 00:00: diagnosis [place]rien as VERIO TEST 00 code E11.9 Med ical STRIPS) May Branch strip substitute brand preferred by insurance Lancing 2022-0 Yes [id number] Test bid Un [place] Device with 7-19 daily. Use it y of Lancets 00:00: as [place] (ONE TOUCH 00 directed. Medi lula DELICA) Kit May Branch substitute brand preferred by insurance metFORMIN 2022-0 Yes [id number] 1000mg Take 1 Univers 1,000 mg 7-19 tablet by ity of tablet 00:00: mouth in [place] the Medical morning Branch and 1 tablet in the evening. Take with meals. MUST BE SEEN FOR FURTHER REFILLS pantoprazol 2022-0 Yes [id number] 40mg Take 1 Univers e 40 mg EC 7-19 tablet by ity of tablet 00:00: mouth in [place] the Medical morning. Branch metoprolol 2022-0 Yes [id number] 25mg Take 1 U nivers tartrate 25 7-19 tablet by ity of mg tablet 00:00: mouth [place] the Medical morning Branch and 1 tablet in the evening. Blood-Gluco 2022-0 Yes [id number] Use as Univers se Meter 7-19 directed. ity of (ONETOUCH 00:00: September [place] VERIO FLEX 00 substitute Med ical START) Kit brand Branch preferred by insurance blood sugar 0 Yes [id number] Test bid [facility] diagnostic 7-19 daily for ity of (ONETOUCH 00:00: diagnosis [place]rien as VERIO TEST 00 code E11.9 Med ical STRIPS) May Branch strip substitute brand preferred by insurance Lancing 0 Yes [id number] Test bid Un [employer] Device with 7-19 daily. Use it y of Lancets 00:00: as [place] (ONE TOUCH 00 directed. [facility]) Kit May Branch substitute brand preferred by insurance metFORMIN Yes [id number] 1000mg Take 1 Univers 1,000 mg 7-19 tablet by ity of tablet 00:00: mouth in [place] the Medical morning Branch and 1 tablet in the evening. Take with meals. MUST BE SEEN FOR FURTHER REFILLS pantoprazol Yes [id number] 40mg Take 1 Univers e 40 mg EC 7-19 tablet by ity of tablet 00:00: mouth in [place] the Medical morning. Branch metoprolol Yes [id number] 25mg Take 1 U nivers tartrate 25 7-19 tablet by ity of mg tablet 00:00: mouth in [facility] 00 the Medical morning Branch and 1 tablet in the evening. Blood-Gluco Yes [id number] Use as Univers se Meter 7-19 directed. ity of (ONETOUCH 00:00: May [place] VERIO FLEX 00 substitute Med ical START) Kit brand Branch preferred by insurance blood sugar 0 Yes [id number] Test bid [facility] diagnostic 7-19 daily for ity of (ONETOUCH 00:00: diagnosis [place] as VERIO TEST 00 code E11.9 Med ical STRIPS) May Branch strip substitute brand preferred by insurance Lancing Yes [id number] Test bid Un [place] Device with 7-19 daily. Use it y of Lancets 00:00: as [place] (ONE TOUCH 00 directed. [facility]) Kit May Branch substitute brand preferred by insurance metFORMIN 0 Yes [id number] 1000mg Take 1 Univers 1,000 mg 7-19 tablet by ity of tablet 00:00: mouth in [place] the Medical morning Branch and 1 tablet in the evening. Take with meals. MUST BE SEEN FOR FURTHER REFILLS pantoprazol 2022-0 Yes [id number] 40mg Take 1 [facility] 40 mg EC 7-19 tablet by ity of tablet 00:00: mouth in [place] the Medical morning. Branch metoprolol Yes [id number] 25mg Take 1 [facility] n[facility] tartrate 25 7-19 tablet by ity of mg tablet 00:00: mouth in [facility] s the Medical morning Branch and 1 tablet in the evening. Blood-Gluco 2022-0 Yes [id number] Use as [facility] se Meter 7-19 directed. ity of (ONETOUCH 00:00: May [place] VERIO FLEX 00 substitute Med ical START) Kit brand Branch preferred by insurance blood sugar Yes [id number] Test bid [facility] diagnostic 7-19 daily for ity of (ONETOUCH 00:00: diagnosis [place] as VERIO TEST 00 code E11.9 Med ical STRIPS) May Branch strip substitute brand preferred by insurance Lancing Yes [id number] Test bid Un alfonso Device with 7-19 daily. Use it y of Lancets 00:00: as [place] (ONE TOUCH 00 directed. Medi lula DELICA) Kit May Branch substitute brand preferred by insurance metFORMIN Yes [id number] 1000mg Take 1 [facility] 1,000 mg 7-19 tablet by ity of tablet 00:00: mouth in [place] the Medical morning Branch and 1 tablet in the evening. Take with meals. MUST BE SEEN FOR FURTHER REFILLS pantoprazol 0 Yes [id number] 40mg Take 1 [facility] e 40 mg EC 7-19 tablet by ity of tablet 00:00: mouth in [place] the Medical morning. Branch metoprolol 0 Yes [id number] 25mg Take 1 [facility] nivers tartrate 25 7-19 tablet by ity of mg tablet 00:00: mouth in [facility] s the Medical morning Branch and 1 tablet in the evening. Blood-Gluco 2022-0 Yes [id number] Use as [facility] se Meter 7-19 directed. ity of (ONETOUCH 00:00: May [place] VERIO FLEX 00 substitute Med ical START) Kit brand Branch preferred by insurance blood sugar 0 Yes [id number] Test bid [facility] diagnostic 7-19 daily for ity of (ONETOUCH 00:00: diagnosis [place]rien as VERIO TEST 00 code E11.9 Med ical STRIPS) May Branch strip substitute brand preferred by insurance Lancing Yes [id number] Test bid Un [facility] Device with 7-19 daily. Use it y of Lancets 00:00: as [place] (ONE TOUCH 00 directed. Medi lula DELICA) Kit May Branch substitute brand preferred by insurance metFORMIN 2022-0 Yes [id number] 1000mg Take 1 [facility] 1,000 mg 7-19 tablet by ity of tablet 00:00: mouth in [place] 00 the Medical morning Branch and 1 tablet in the evening. Take with meals. MUST BE SEEN FOR FURTHER REFILLS pantoprazol 2022-0 Yes [id number] 40mg Take 1 [facility] 40 mg EC 7-19 tablet by ity of tablet 00:00: mouth in [place] 00 the Medical morning. Branch metoprolol 2022-0 Yes [id number] 25mg Take 1 [facility] nivers tartrate 25 7-19 tablet by [facility] [place] mg tablet 00:00: [place] and 1 tablet in the evening. Blood-Gluco 0 Yes [id number] Use as [facility] se Meter 7-19 directed. ity of (ONETOUCH 00:00: May [place] VERIO FLEX 00 substitute Med ical START) Kit brand Branch preferred by insurance blood sugar 2022-0 Yes [id number] Test bid [facility] diagnostic 7-19 daily for ity of (ONETOUCH 00:00: diagnosis [place]rien as VERIO TEST 00 code E11.9 Med ical STRIPS) May Branch strip substitute brand preferred by insurance Lancing 2022-0 Yes [id number] Test bid Un [facility] Device with 7-19 daily. Use it y of Lancets 00:00: as [place] (ONE TOUCH 00 directed. Medi lula DELICA) Kit May Branch substitute brand preferred by insurance metFORMIN 2022-0 Yes [id number] 1000mg Take 1 [facility] 1,000 mg 7-19 tablet by ity of tablet 00:00: mouth in [place] 00 the Medical morning Branch and 1 tablet in the evening. Take with meals. MUST BE SEEN FOR FURTHER REFILLS pantoprazol 2022-0 Yes [id number] 40mg Take 1 [facility] e 40 mg EC 7-19 tablet by ity of tablet 00:00: mouth in [place] 00 the Medical morning. Branch metoprolol 2022-0 Yes [id number] 25mg Take 1 [facility] nivers tartrate 25 7-19 tablet by ity of mg tablet 00:00: [place] the Medical morning Branch and 1 tablet in the evening. Blood-Gluco Yes [id number] Use as [facility] se Meter 7-19 directed. ity of (ONETOUCH 00:00: May [place] VERIO FLEX 00 substitute Med ical START) Kit brand Branch preferred by insurance blood sugar Yes [id number] Test bid [facility] diagnostic 7-19 daily for ity of (ONETOUCH 00:00: diagnosis [place]rien as VERIO TEST 00 code E11.9 Med ical STRIPS) May Branch strip substitute brand preferred by insurance Lancing Yes [id number] Test bid Un [facility] Device with 7-19 daily. Use it y of Lancets 00:00: as [place] (ONE TOUCH 00 directed. Medi lula DELICA) Kit May Branch substitute brand preferred by insurance metFORMIN Yes [id number] 1000mg Take 1 [facility] 1,000 mg 7-19 tablet by ity of tablet 00:00: mouth in [place] the Medical morning Branch and 1 tablet in the evening. Take with meals. MUST BE SEEN FOR FURTHER REFILLS pantoprazol Yes [id number] 40mg Take 1 [facility] e 40 mg EC 7-19 tablet by ity of tablet 00:00: mouth in [place] the Medical morning. Branch metoprolol Yes [id number] 25mg Take 1 U nivers tartrate 25 7-19 tablet by ity of mg tablet 00:00: mouth in [facility] the Medical morning Branch and 1 tablet in the evening. Blood-Gluco Yes [id number] Use as [facility] se Meter 7-19 directed. ity of (ONETOUCH 00:00: September [place] VERIO FLEX 00 substitute Med ical START) Kit brand Branch preferred by insurance blood sugar Yes [id number] Test bid [facility] diagnostic 7-19 daily for ity of (ONETOUCH 00:00: diagnosis [place]rien as VERIO TEST 00 code E11.9 Med ical STRIPS) May Branch strip substitute brand preferred by insurance Lancing 0 Yes [id number] Test bid Un alfon[facility] Device with 7-19 daily. Use it y of Lancets 00:00: as [place] (ONE TOUCH 00 directed. Medi lula DELICA) Kit May Branch substitute brand preferred by insurance metFORMIN 0 Yes [id number] 1000mg Take 1 [facility] 1,000 mg 7-19 tablet by ity of tablet 00:00: mouth in [place] the Medical morning Branch and 1 tablet in the evening. Take with meals. MUST BE SEEN FOR FURTHER REFILLS pantoprazol Yes [id number] 40mg Take 1 [facility] e 40 mg EC 7-19 tablet by ity of tablet 00:00: mouth in [place] the morning. Branch metoprolol Yes [id number] 25mg Take 1 [facility] nivers tartrate 25 7-19 tablet by ity of mg tablet 00:00: [place] Medical [place] Branch and 1 tablet in the evening. Blood-Gluco Yes [id number] Use as [facility] se Meter 7-19 directed. ity of (ONETOUCH 00:00: September [place] VERIO FLEX 00 substitute Med ical START) Kit brand Branch preferred by insurance blood sugar Yes [id number] Test bid [facility] diagnostic 7-19 daily for ity of (ONETOUCH 00:00: diagnosis [place] as VERIO TEST 00 code E11.9 Med ical STRIPS) May Branch strip substitute brand preferred by insurance Lancing Yes [id number] Test bid Un [facility] Device with 7-19 daily. Use it y of Lancets 00:00: as [place] (ONE TOUCH 00 directed. Medi lula DELICA) Kit May Branch substitute brand preferred by insurance metFORMIN Yes [id number] 1000mg Take 1 [facility] 1,000 mg 7-19 tablet by ity of tablet 00:00: mouth in [place] the Medical morning Branch and 1 tablet in the evening. Take with meals. MUST BE SEEN FOR FURTHER REFILLS pantoprazol 2022- Yes [id number] 40mg Take 1 [facility] e 40 mg EC 7-19 tablet by ity of tablet 00:00: mouth in [place] the morning. Branch metoprolol Yes [id number] 25mg Take 1 U nivers tartrate 25 7-19 tablet by ity of mg tablet 00:00: mouth in [facility] s the Medical morning Branch and 1 tablet in the evening. Blood-Gluco 0 Yes [id number] Use as [facility] se Meter 7-19 directed. ity of (ONETOUCH 00:00: May [place] VERIO FLEX 00 substitute Med ical START) Kit brand Branch preferred by insurance blood sugar Yes [id number] Test bid [facility] diagnostic 7-19 daily for ity of (ONETOUCH 00:00: diagnosis [place]rien as VERIO TEST 00 code E11.9 Med ical STRIPS) May Branch strip substitute brand preferred by insurance Lancing Yes [id number] Test bid Un alfon[facility] Device with 7-19 daily. Use it y of Lancets 00:00: as [place] (ONE TOUCH 00 directed. [facility]) Kit May Branch substitute brand preferred by insurance metFORMIN Yes [id number] 1000mg Take 1 [facility] 1,000 mg 7-19 tablet by ity of tablet 00:00: mouth in [place] the Medical morning Branch and 1 tablet in the evening. Take with meals. MUST BE SEEN FOR FURTHER REFILLS pantoprazol Yes [id number] 40mg Take 1 [facility] e 40 mg EC 7-19 tablet by ity of tablet 00:00: mouth in [place] the Medical morning. Branch metoprolol Yes [id number] 25mg Take 1 U nivers tartrate 25 7-19 tablet by ity of mg tablet 00:00: mouth in [facility] the Medical morning Branch and 1 tablet in the evening. Blood-Gluco Yes [id number] Use as [facility] se Meter 7-19 directed. ity of (ONETOUCH 00:00: May [place] VERIO FLEX 00 substitute Med ical START) Kit brand Branch preferred by insurance blood sugar Yes [id number] Test bid [facility] diagnostic 7-19 daily for ity of (ONETOUCH 00:00: diagnosis [place] as VERIO TEST 00 code E11.9 Med ical STRIPS) May Branch strip substitute brand preferred by insurance Lancing Yes [id number] Test bid Un [facility] Device with 7-19 daily. Use it y of Lancets 00:00: as [place] (ONE TOUCH 00 directed. [facility] lula DELICA) Kit May Branch substitute brand preferred by insurance metFORMIN Yes [id number] 1000mg Take 1 [facility] 1,000 mg 7-19 tablet by ity of tablet 00:00: mouth in [place] the Medical morning Branch and 1 tablet in the evening. Take with meals. MUST BE SEEN FOR FURTHER REFILLS pantoprazol 0 Yes [id number] 40mg Take 1 [facility] e 40 mg EC 7-19 tablet by ity of tablet 00:00: mouth in [place] 00 the Medical morning. Branch metoprolol 0 Yes [id number] 25mg Take 1 U nivers tartrate 25 7-19 tablet by ity of mg tablet 00:00: mouth in [facility] the Medical morning Branch and 1 tablet in the evening. Blood-Gluco 0 Yes [id number] Use as [facility] se Meter 7-19 directed. ity of (ONETOUCH 00:00: May [place] VERIO FLEX 00 substitute Med ical START) Kit brand Branch preferred by insurance blood sugar 0 Yes [id number] Test bid [facility] diagnostic 7-19 daily for ity of (ONETOUCH 00:00: diagnosis [place] as VERIO TEST 00 code E11.9 Med ical STRIPS) May Branch strip substitute brand preferred by insurance Lancing 0 Yes [id number] Test bid Un [facility] Device with 7-19 daily. Use it y of Lancets 00:00: as [place] (ONE TOUCH 00 directed. Medi lula DELICA) Kit May Branch substitute brand preferred by insurance metFORMIN 0 Yes [id number] 1000mg Take 1 [facility] 1,000 mg 7-19 tablet by ity of tablet 00:00: mouth in the Medical morning Branch and 1 tablet in the evening. Take with meals. MUST BE SEEN FOR FURTHER REFILLS pantoprazol 0 Yes [id number] 40mg Take 1 [facility] e 40 mg EC 7-19 tablet by ity of tablet 00:00: mouth in the Medical morning. Branch metoprolol 0 Yes [id number] 25mg Take 1 U nivers tartrate 25 7-19 tablet by ity of mg tablet 00:00: mouth in [facility] the Medical morning Branch and 1 tablet in the evening. Blood-Gluco 2022-0 Yes [id number] Use as [facility] se Meter 7-19 directed. ity of (ONETOUCH 00:00: May [place] VERIO FLEX 00 substitute Med ical START) Kit brand Branch preferred by insurance blood sugar 2022-0 Yes [id number] Test bid [facility] diagnostic 7-19 daily for ity of (ONETOUCH 00:00: diagnosis [place]rien as VERIO TEST 00 code E11.9 Med ical STRIPS) May Branch strip substitute brand preferred by insurance Lancing 2022-0 Yes [id number] Test bid Un [facility] Device with 7-19 daily. Use it y of Lancets 00:00: as [place] (ONE TOUCH 00 directed. [facility] lula [facility]) Kit May Branch substitute brand preferred by insurance metFORMIN 2022-0 Yes [id number] 1000mg Take 1 [facility] 1,000 mg 7-19 tablet by ity of tablet 00:00: mouth in [place] the Medical morning Branch and 1 tablet in the evening. Take with meals. MUST BE SEEN FOR FURTHER REFILLS pantoprazol 2022-0 Yes [id number] 40mg Take 1 [facility] e 40 mg EC 7-19 tablet by ity of tablet 00:00: mouth in [place] the morning. Branch metoprolol 2022-0 Yes [id number] 25mg Take 1 U nivers tartrate 25 7-19 tablet by ity of mg tablet 00:00: mouth in [facility] the Medical morning Branch and 1 tablet in the evening. Blood-Gluco 2022-0 Yes [id number] Use as [facility] se Meter 7-19 directed. ity of (ONETOUCH 00:00: May [place] VERIO FLEX 00 substitute Med ical START) Kit brand Branch preferred by insurance blood sugar 0 Yes [id number] Test bid [facility] diagnostic 7-19 daily for ity of (ONETOUCH 00:00: diagnosis [place] as VERIO TEST 00 code E11.9 Med ical STRIPS) May Branch strip substitute brand preferred by insurance Lancing 0 Yes [id number] Test bid Un alfon[facility] Device with 7-19 daily. Use it y of Lancets 00:00: as [place] (ONE TOUCH 00 directed. [facility] lula [facility]) Kit May Branch substitute brand preferred by insurance metFORMIN 2022-0 Yes [id number] 1000mg Take 1 [facility] 1,000 mg 7-19 tablet by ity of tablet 00:00: mouth in [place] the Medical morning Branch and 1 tablet in the evening. Take with meals. MUST BE SEEN FOR FURTHER REFILLS pantoprazol 2022-0 Yes [id number] 40mg Take 1 [facility] e 40 mg EC 7-19 tablet by ity of tablet 00:00: mouth in [place] the morning. Branch metoprolol 2022-0 Yes [id number] 25mg Take 1 U nivers tartrate 25 7-19 tablet by ity of mg tablet 00:00: mouth in [facility] the Medical morning Branch and 1 tablet in the evening. Blood-Gluco 2022-0 Yes [id number] Use as Univers se Meter 7-19 directed. ity of (ONETOUCH 00:00: May [place] VERIO FLEX 00 substitute Med ical START) Kit brand Branch preferred by insurance blood sugar Yes [id number] Test bid [facility] diagnostic 7-19 daily for ity of (ONETOUCH 00:00: diagnosis [place]rien as VERIO TEST 00 code E11.9 Med ical STRIPS) May Branch strip substitute brand preferred by insurance Lancing Yes [id number] Test bid Un [facility] Device with 7-19 daily. Use it y of Lancets 00:00: as [place] (ONE TOUCH directed. Medi lula DELICA) Kit May Branch substitute brand preferred by insurance metFORMIN Yes [id number] 1000mg Take 1 [facility] 1,000 mg 7-19 tablet by ity of tablet 00:00: mouth in the Medical morning Branch and 1 tablet in the evening. Take with meals. MUST BE SEEN FOR FURTHER REFILLS pantoprazol Yes [id number] 40mg Take 1 [facility] e 40 mg EC 7-19 tablet by ity of tablet 00:00: mouth in [place] the Medical morning. Branch metoprolol Yes [id number] 25mg Take 1 U nivers tartrate 25 7-19 tablet by ity of mg tablet 00:00: mouth in [facility] the Medical morning Branch and 1 tablet in the evening. Blood-Gluco Yes [id number] Use as [facility] se Meter 7-19 directed. ity of (ONETOUCH 00:00: May [place] VERIO FLEX 00 substitute Med ical START) Kit brand Branch preferred by insurance blood sugar Yes [id number] Test bid [facility] diagnostic 7-19 daily for ity of (ONETOUCH 00:00: diagnosis [place] as VERIO TEST 00 code E11.9 Med ical STRIPS) May Branch strip substitute brand preferred by insurance Lancing Yes [id number] Test bid Un [place] Device with 7-19 daily. Use it y of Lancets 00:00: as [place] (ONE TOUCH 00 directed. Medi lula DELICA) Kit May Branch substitute brand preferred by insurance metFORMIN Yes [id number] 1000mg Take 1 [facility] 1,000 mg 7-19 tablet by ity of tablet 00:00: mouth in [place] the Medical morning Branch and 1 tablet in the evening. Take with meals. MUST BE SEEN FOR FURTHER REFILLS pantoprazol Yes [id number] 40mg Take 1 [facility] e 40 mg EC 7-19 tablet by ity of tablet 00:00: mouth in [place] the morning. Branch metoprolol Yes [id number] 25mg Take 1 U nivers tartrate 25 7-19 tablet by ity of mg tablet 00:00: mouth in the Medical morning Branch and 1 tablet in the evening. Blood-Gluco 2022-0 Yes [id number] Use as [facility] se Meter 7-19 directed. ity of (ONETOUCH 00:00: September [place] VERIO FLEX 00 substitute Med ical START) Kit brand Branch preferred by insurance blood sugar 0 Yes [id number] Test bid [facility] diagnostic 7-19 daily for ity of (ONETOUCH 00:00: diagnosis [place] as VERIO TEST 00 code E11.9 Med ical STRIPS) May Branch strip substitute brand preferred by insurance Lancing Yes [id number] Test bid Un [place] Device with 7-19 daily. Use it y of Lancets 00:00: as [place] (ONE TOUCH 00 directed. Medi lula DELICA) Kit May Branch substitute brand preferred by insurance metFORMIN Yes [id number] 1000mg Take 1 [facility] 1,000 mg 7-19 tablet by ity of tablet 00:00: mouth in [place] the morning Branch and 1 tablet in the evening. Take with meals. MUST BE SEEN FOR FURTHER REFILLS pantoprazol 2022-0 Yes [id number] 40mg Take 1 [facility] e 40 mg EC 7-19 tablet by ity of tablet 00:00: mouth in [place] the morning. Branch metoprolol 2022- Yes [id number] 25mg Take 1 U nivers tartrate 25 7-19 tablet by ity of mg tablet 00:00: mouth in the Medical morning Branch and 1 tablet in the evening. Blood-Gluco 2022-0 Yes [id number] Use as [facility] se Meter 7-19 directed. ity of (ONETOUCH 00:00: September [place] VERIO FLEX 00 substitute Med ical START) Kit brand Branch preferred by insurance blood sugar 2022-0 Yes [id number] Test bid [facility] diagnostic 7-19 daily for ity of (ONETOUCH 00:00: diagnosis [place] as VERIO TEST 00 code E11.9 Med ical STRIPS) May Branch strip substitute brand preferred by insurance Lancing Yes [id number] Test bid Un [place] Device with 7-19 daily. Use it y of Lancets 00:00: as [place] (ONE TOUCH 00 directed. [facility]) Kit May Branch substitute brand preferred by insurance metFORMIN Yes [id number] 1000mg Take 1 [facility] 1,000 mg 7-19 tablet by ity of tablet 00:00: mouth in [place] 00 the Medical morning Branch and 1 tablet in the evening. Take with meals. MUST BE SEEN FOR FURTHER REFILLS pantoprazol Yes [id number] 40mg Take 1 [facility] e 40 mg EC 7-19 tablet by ity of tablet 00:00: mouth in [place] 00 the morning. Branch metoprolol Yes [id number] 25mg Take 1 U nivers tartrate 25 7-19 tablet by ity of mg tablet 00:00: mouth in [facility] the Medical morning Branch and 1 tablet in the evening. Blood-Gluco Yes [id number] Use as Univers se Meter 7-19 directed. ity of (ONETOUCH 00:00: September [place] VERIO FLEX 00 substitute Med ical START) Kit brand Branch preferred by insurance blood sugar Yes [id number] Test bid [facility] diagnostic 7-19 daily for ity of (ONETOUCH 00:00: diagnosis [place] as VERIO TEST 00 code E11.9 Med ical STRIPS) May Branch strip substitute brand preferred by insurance Lancing Yes [id number] Test bid Un alfonso Device with 7-19 daily. Use it y of Lancets 00:00: as [place] (ONE TOUCH 00 directed. [facility]) Kit May Branch substitute brand preferred by insurance omeprazole Yes 20mg QD Take 1 [facility] times daily with breakfast and dinner. metFORMIN 2023-0 2023- No 1000mg Take [address] [facility] (GLUCOPHAGE 7-17 -14 [facility] ) 1000 MG 11:27: 00:00 (1,000 mg Me dical tablet 02 :00 total) by Center mouth 2 (two) times daily with breakfast and dinner. metFORMIN 2023-0 2023- No 1000mg Take [address] [facility] (GLUCOPHAGE 7-17 07-14 tablet [facility] ) 1000 MG 11:27: 00:00 (1,000 mg Me dical tablet 02 :00 total) by Center mouth 2 (two) times daily with breakfast and dinner. metFORMIN 2022- No 1000mg Take [address] [facility] (GLUCOPHAGE 7-17 07-14 tablet [facility] ) 1000 MG 11:27: 00:00 (1,000 mg Me dical tablet 02 :00 total) by Center mouth 2 (two) times daily with breakfast and dinner. metFORMIN 2022- No 1000mg Take [address] [facility] (GLUCOPHAGE 7-17 07-14 tablet [facility] ) 1000 MG 11:27: 00:00 (1,000 mg Me dical tablet 02 :00 total) by Center mouth 2 (two) times daily with breakfast and dinner. metFORMIN 2022- No 1000mg Take [address] [facility] (GLUCOPHAGE 7-17 07-14 tablet [facility] ) 1000 MG 11:27: 00:00 (1,000 mg Me dical tablet 02 :00 total) by Center mouth 2 (two) times daily with breakfast and dinner. clopidogreL 2023- Yes 75mg QD Take [address] [facility] (PLAVIX) 75 7-17 07-16 tablet (75 [facility] mg tablet 00:00: 23:59 mg total) Me dical 00 :00 by mouth Center daily . clopidogreL 2023- Yes 75mg QD Take [address] [facility] (PLAVIX) 75 7-17 07-16 tablet (75 [facility] mg tablet 00:00: 23:59 mg total) Me dical 00 :00 by mouth Center daily . clopidogreL 2023- Yes 75mg QD Take [address] [facility] (PLAVIX) 75 7-17 07-16 tablet (75 [facility] mg tablet 00:00: 23:59 mg total) Me dical 00 :00 by mouth Center daily . clopidogreL 2023- Yes 75mg QD Take [address] [facility] (PLAVIX) 75 7-17 07-16 tablet (75 [facility] mg tablet 00:00: 23:59 mg total) Me dical 00 :00 by mouth Center daily . clopidogreL 2023- Yes 75mg QD Take [address] [facility] [...] by ity of tablet 00:00: mouth in [place] 00 the Medical morning. Branch clopidogreL 2023-0 Yes 75mg Take 1 [facility] ers 75 mg 7-16 tablet by ity of tablet 00:00: mouth in [place] the Medical morning. Branch clopidogreL 2023-0 Yes 75mg Take 1 [facility] ers 75 mg 7-16 tablet by ity of tablet 00:00: mouth in [place] the Medical morning. Branch clopidogreL 2023-0 Yes 75mg Take 1 [facility] ers 75 mg 7-16 tablet by ity of tablet 00:00: mouth in [place] the Medical morning. Branch clopidogreL 2023-0 Yes 75mg Take 1 [facility] ers 75 mg 7-16 tablet by ity of tablet 00:00: mouth in [place] the Medical morning. Branch clopidogreL 2023-0 Yes 75mg Take 1 [facility] ers 75 mg 7-16 tablet by ity of tablet 00:00: mouth in [place] the Medical morning. Branch clopidogreL 2023-0 Yes 75mg Take 1 [facility] ers 75 mg 7-16 tablet by ity of tablet 00:00: mouth in [place] the Medical morning. Branch clopidogreL 2023-0 Yes 75mg Take 1 [facility] ers 75 mg 7-16 tablet by ity of tablet 00:00: mouth in [place] the Medical morning. Branch clopidogreL 2023-0 Yes 75mg Take 1 [facility] ers 75 mg 7-16 tablet by ity of tablet 00:00: mouth in [place] the Medical morning. Branch clopidogreL 2023-0 Yes 75mg Take 1 [facility] ers 75 mg 7-16 tablet by ity of tablet 00:00: mouth in [place] the Medical morning. Branch clopidogreL 2023-0 Yes 75mg Take 1 [facility] ers 75 mg 7-16 tablet by ity of tablet 00:00: mouth in [place] the Medical morning. Branch clopidogreL 2023-0 Yes 75mg Take 1 [facility] ers 75 mg 7-16 tablet by ity of tablet 00:00: mouth in [place] 00 the Medical morning. Branch clopidogreL 2023-0 Yes 75mg Take 1 [facility] ers 75 mg 7-16 tablet by ity of tablet 00:00: mouth in [place] the Medical morning. Branch clopidogreL 2023-0 Yes 75mg Take 1 [facility] ers 75 mg 7-16 tablet by ity of tablet 00:00: mouth in [place] the Medical morning. Branch clopidogreL 2023-0 Yes 75mg Take 1 [facility] ers 75 mg 7-16 tablet by ity of tablet 00:00: mouth in [place] the Medical morning. Branch clopidogreL 2023-0 Yes 75mg Take 1 [facility] ers 75 mg 7-16 tablet by ity of tablet 00:00: mouth in [place] the Medical morning. Branch clopidogreL 2023-0 Yes 75mg Take 1 [facility] ers 75 mg 7-16 tablet by ity of tablet 00:00: mouth in [place] the Medical morning. Branch clopidogreL 2023-0 Yes 75mg Take 1 [facility] ers 75 mg 7-16 tablet by ity of tablet 00:00: mouth in [place] the Medical morning. Branch clopidogreL 2023-0 Yes 75mg Take 1 [facility] ers 75 mg 7-16 tablet by ity of tablet 00:00: mouth in [place] the Medical morning. Branch clopidogreL 2023-0 Yes 75mg Take 1 [facility] ers 75 mg 7-16 tablet by ity of tablet 00:00: mouth in [place] the Medical morning. Branch clopidogreL 2023-0 Yes 75mg Take 1 [facility] ers 75 mg 7-16 tablet by ity of tablet 00:00: mouth in [place] the Medical morning. Branch clopidogreL 2023-0 Yes 75mg Take 1 [facility] ers 75 mg 7-16 tablet by ity of tablet 00:00: mouth in [place] the Medical morning. Branch clopidogreL 2023-0 Yes 75mg Take 1 [facility] ers 75 mg 7-16 tablet by ity of tablet 00:00: mouth in [place] the Medical morning. Branch clopidogreL 2023-0 Yes 75mg Take 1 [facility] ers 75 mg 7-16 tablet by ity of tablet 00:00: mouth in [place] the Medical morning. Branch clopidogreL 2023-0 Yes 75mg Take 1 [facility] ers 75 mg 7-16 tablet by ity of tablet 00:00: mouth in [place] 00 the Medical morning. Branch clopidogreL 2023-0 Yes 75mg Take 1 [facility] ers 75 mg 7-16 tablet by ity of tablet 00:00: mouth in [place] 00 the Medical morning. Branch clopidogreL 2023-0 Yes 75mg Take 1 [facility] ers 75 mg 7-16 tablet by ity of tablet 00:00: mouth in [place] 00 the Medical morning. Branch clopidogreL 2023-0 Yes 75mg Take 1 [facility] ers 75 mg 7-16 tablet by ity of tablet 00:00: mouth in [place] the Medical morning. Branch clopidogreL 2023-0 Yes 75mg Take 1 [facility] ers 75 mg 7-16 tablet by ity of tablet 00:00: mouth in [place] the Medical morning. Branch clopidogreL 2023-0 Yes 75mg Take 1 [facility] ers 75 mg 7-16 tablet by ity of tablet 00:00: mouth in [place] the Medical morning. Branch clopidogreL 2023-0 Yes 75mg Take 1 [facility] 75 mg 7-16 tablet by [facility] of tablet 00:00: mouth in [place] the Medical morning. Branch clopidogreL 2023-0 Yes 75mg Take 1 [facility] 75 mg 7-16 tablet by [facility] of tablet 00:00: mouth in [place] the Medical morning. Branch clopidogreL 2023-0 Yes 75mg Take 1 [facility] 75 mg 7-16 tablet by [facility] of tablet 00:00: mouth in [place] the Medical morning. Branch clopidogreL 2023-0 Yes 75mg Take 1 [facility] 75 mg 7-16 tablet by [facility] of tablet 00:00: mouth in [place] the Medical morning. Branch clopidogreL 2023-0 Yes 75mg Take 1 [facility] 75 mg 7-16 tablet by [facility] of tablet 00:00: mouth in [place] the Medical morning. Branch clopidogreL 2023-0 Yes 75mg Take 1 [facility] 75 mg 7-16 tablet by [facility] of tablet 00:00: mouth in [place] the Medical morning. Branch clopidogreL 2023-0 Yes 75mg Take 1 [facility] 75 mg 7-16 tablet by [facility] of tablet 00:00: mouth in [place] 00 the Medical morning. Branch clopidogreL 2023-0 Yes 75mg Take 1 [facility] 75 mg 7-16 tablet by [facility] of tablet 00:00: mouth in [place] 00 the Medical morning. Branch clopidogreL 2023-0 Yes 75mg Take 1 [facility] 75 mg 7-16 tablet by [facility] of tablet 00:00: mouth in [place] 00 the Medical morning. Branch clopidogreL 2023-0 Yes 75mg Take 1 [facility] 75 mg 7-16 tablet by [facility] of tablet 00:00: mouth in [place] 00 the Medical morning. Branch clopidogreL 2022-0 Yes 75mg Take 1 [facility] 75 mg 7-16 tablet by [facility] of tablet 00:00: mouth in [place] 00 the Medical morning. Branch rosuvastati 2023- Yes 20mg QD Take 1 [...] 00 :00 by mouth [facility] daily. rosuvastati 2022-2023- Yes 20mg QD Take [address] [facility] [...] by ity of tablet 00:00: mouth at [place] [address] bedtime. Medical Branch rosuvastati 2022-0 Yes 20mg Take 1 [facility] n 20 mg 7-14 tablet by [facility] of tablet 00:00: mouth at [place] 00 bedtime. Medical Branch rosuvastati 2023-0 Yes 20mg Take 1 [facility] n 20 mg 7-14 tablet by [facility] of tablet 00:00: mouth at [place] [address] bedtime. Medical Branch rosuvastati 2023-0 Yes 20mg Take 1 [facility] n 20 mg 7-14 tablet by [facility] of tablet 00:00: mouth at [place] [address] bedtime. Medical Branch rosuvastati 2023-0 Yes 20mg Take 1 [facility] n 20 mg 7-14 tablet by ity of tablet 00:00: mouth at [place] [address] bedtime. Medical Branch rosuvastati 2023-0 Yes 20mg Take 1 [facility] n 20 mg 7-14 tablet by [facility] of tablet 00:00: mouth at [place] [address] bedtime. Medical Branch rosuvastati 2023-0 Yes 20mg Take 1 [facility] n 20 mg 7-14 tablet by [facility]y of tablet 00:00: mouth at [place] [address] bedtime. Medical Branch rosuvastati 2023-0 Yes 20mg Take 1 [facility] n 20 mg 7-14 tablet by [facility] of tablet 00:00: mouth at [place] [address] bedtime. Medical Branch rosuvastati 2023-0 Yes 20mg Take 1 [facility] n 20 mg 7-14 tablet by [facility] of tablet 00:00: mouth at [place] [address] bedtime. Medical Branch rosuvastati 2023-0 Yes 20mg Take 1 [facility] n 20 mg 7-14 tablet by ity of tablet 00:00: mouth at [place] [address] bedtime. Medical Branch rosuvastati 2023-0 Yes 20mg Take 1 [facility] n 20 mg 7-14 tablet by ity of tablet 00:00: mouth at [place] [address] bedtime. Medical Branch rosuvastati 2023-0 Yes 20mg Take 1 [facility] n 20 mg 7-14 tablet by [facility] of tablet 00:00: mouth at [place] [address] bedtime. Medical Branch rosuvastati 2023-0 Yes 20mg Take 1 [facility] n 20 mg 7-14 tablet by ity of tablet 00:00: mouth at [place] [address] bedtime. Medical Branch rosuvastati 2023-0 Yes 20mg Take 1 [facility] n 20 mg 7-14 tablet by ity of tablet 00:00: mouth at [place] [address] bedtime. Medical Branch rosuvastati 2023-0 Yes 20mg Take 1 [facility] n 20 mg 7-14 tablet by [facility] of tablet 00:00: mouth at [place] [address] bedtime. Medical Branch rosuvastati 2023-0 Yes 20mg Take 1 [facility] n 20 mg 7-14 tablet by [facility] of tablet 00:00: mouth at [place] [address] bedtime. Medical Branch rosuvastati 2023-0 Yes 20mg Take 1 [facility] n 20 mg 7-14 tablet by [facility] of tablet 00:00: mouth at [place] bedtime. Medical Branch rosuvastati 2023-0 Yes 20mg Take 1 [facility] n 20 mg 7-14 tablet by [facility] of tablet 00:00: mouth at [place] bedtime. Medical Branch rosuvastati 2023-0 Yes 20mg Take 1 [facility] n 20 mg 7-14 tablet by it[facility] of tablet 00:00: mouth at [place] bedtime. Medical Branch rosuvastati 2023-0 Yes 20mg Take 1 [facility] n 20 mg 7-14 tablet by [facility] of tablet 00:00: mouth at [place] bedtime. Medical Branch rosuvastati 2023-0 Yes 20mg Take 1 [facility] n 20 mg 7-14 tablet by [facility] of tablet 00:00: mouth at [place] bedtime. Medical Branch rosuvastati 2023-0 Yes 20mg Take 1 [facility] n 20 mg 7-14 tablet by [facility] of tablet 00:00: mouth at [place] bedtime. Medical Branch rosuvastati 2023-0 Yes 20mg Take 1 [facility] n 20 mg 7-14 tablet by it[facility] of tablet 00:00: mouth at [place] bedtime. Medical Branch rosuvastati 2023-0 Yes 20mg Take 1 [facility] n 20 mg 7-14 tablet by [facility] of tablet 00:00: mouth at [place] bedtime. Medical Branch rosuvastati 2023-0 Yes 20mg Take 1 [facility] n 20 mg 7-14 tablet by [facility] of tablet 00:00: mouth at [place] bedtime. Medical Branch rosuvastati 2023-0 Yes 20mg Take 1 [facility] n 20 mg 7-14 tablet by [facility] of tablet 00:00: mouth at [place] bedtime. Medical Branch rosuvastati 2023-0 Yes 20mg Take 1 [facility] n 20 mg 7-14 tablet by ity of tablet 00:00: mouth at [place] [address] bedtime. Medical Branch rosuvastati 2023-0 Yes 20mg Take 1 [facility] n 20 mg 7-14 tablet by [facility] of tablet 00:00: mouth at [place] [address] bedtime. Medical Branch rosuvastati 2023-0 Yes 20mg Take 1 [facility] n 20 mg 7-14 tablet by [facility] of tablet 00:00: mouth at [place] [address] bedtime. Medical Branch rosuvastati 2023-0 Yes 20mg Take 1 [facility] n 20 mg 7-14 tablet by [facility] of tablet 00:00: mouth at [place] [address] bedtime. Medical Branch rosuvastati 2023-0 Yes 20mg Take 1 [facility] n 20 mg 7-14 tablet by [facility] of tablet 00:00: mouth at [place] [address] bedtime. Medical Branch rosuvastati 2023-0 Yes 20mg Take 1 [facility] n 20 mg 7-14 tablet by [facility] of tablet 00:00: mouth at [place] [address] bedtime. Medical Branch rosuvastati 2023-0 Yes 20mg Take 1 [facility] n 20 mg 7-14 tablet by [facility] of tablet 00:00: mouth at [place] [address] bedtime. Medical Branch rosuvastati 2023-0 Yes 20mg Take 1 [facility] n 20 mg 7-14 tablet by [facility] of tablet 00:00: mouth at [place] [address] bedtime. Medical Branch rosuvastati 2023-0 Yes 20mg Take 1 [facility] n 20 mg 7-14 tablet by [facility] of tablet 00:00: mouth at [place] [address] bedtime. Medical Branch rosuvastati 2023-0 Yes 20mg Take 1 [facility] n 20 mg 7-14 tablet by [facility] of tablet 00:00: mouth at [place] [address] bedtime. Medical Branch rosuvastati 2023-0 Yes 20mg Take 1 [facility] n 20 mg 7-14 tablet by [facility] of tablet 00:00: mouth at [place] [address] bedtime. Medical Branch rosuvastati 2023-0 Yes 20mg Take 1 [facility] n 20 mg 7-14 tablet by [facility] of tablet 00:00: mouth at [place] [address] bedtime. Medical Branch rosuvastati 2023-0 Yes 20mg Take 1 [facility] n 20 mg 7-14 tablet by [facility]y of tablet 00:00: mouth at [place] [address] bedtime. Medical Branch rosuvastati 2023-0 Yes 20mg Take 1 [facility] n 20 mg 7-14 tablet by ity of tablet 00:00: mouth at [place] 00 bedtime. Medical Branch rosuvastati Yes 20mg Take 1 [facility] n 20 mg 7-14 tablet by it[facility] of tablet 00:00: mouth at [place] 00 bedtime. Medical Branch HYDROcodone 2022-0 Yes TAKE [...] Branch NEEDED FOR PAIN MAX 2/DAY HYDROcodone Yes TAKE 1 [facility] -acetaminop 7-07 TABLET BY ity of hen 10-325 00:00: MOUTH [place] mg tablet 00 TWICE A Medical DAY Branch NEEDED FOR PAIN MAX 2/DAY losartan 50 2022-0 Yes [id number] 50mg Take 1 [facility] mg tablet 7-03 tablet by ity o f 00:00: mouth in [place] 00 the Medical morning. Branch losartan 50 2022-0 Yes [id number] 50mg Take 1 [facility] mg tablet 7-03 tablet by ity o f 00:00: mouth in [place] 00 the Medical morning. Branch MONTELUKAST 2022-0 Yes [id number] TAKE 1 [facility] 10 mg 7-03 TABLET BY ity of tablet 00:00: MOUTH IN [place] 00 THE Medical MORNING Branch losartan 50 2022-0 Yes [id number] 50mg Take 1 [facility] mg tablet 7-03 tablet by ity o f 00:00: mouth in [place] 00 the Medical morning. Branch MONTELUKAST 2022-0 Yes [id number] TAKE 1 [facility] 10 mg 7-03 TABLET BY ity of tablet 00:00: MOUTH IN [place] 00 THE Medical MORNING Branch losartan 50 2022-0 Yes [id number] 50mg Take 1 [facility] mg tablet 7-03 tablet by ity o f 00:00: mouth in [place] 00 the Medical morning. Branch MONTELUKAST 2022-0 Yes [id number] TAKE 1 [facility] 10 mg 7-03 TABLET BY it[facility] of tablet 00:00: MOUTH IN [place] THE Medical MORNING Branch losartan 50 2022-0 Yes [id number] 50mg Take 1 [facility] mg tablet 7-03 tablet by ity o f 00:00: mouth in [place] 00 the Medical morning. Branch MONTELUKAST 2022-0 Yes [id number] TAKE 1 [facility] 10 mg 7-03 TABLET BY ity of tablet 00:00: MOUTH IN [place] 00 THE Medical MORNING Branch losartan 50 2022-0 Yes [id number] 50mg Take 1 [facility] mg tablet 7-03 tablet by ity o f 00:00: mouth in [place] 00 the Medical morning. Branch MONTELUKAST 2022-0 Yes [id number] TAKE 1 [facility] 10 mg 7-03 TABLET BY it[facility] of tablet 00:00: MOUTH IN [place] 00 THE Medical MORNING Branch losartan 50 2022-0 Yes [id number] 50mg Take 1 [facility] mg tablet 7-03 tablet by ity o f 00:00: mouth in [place] 00 the Medical morning. Branch MONTELUKAST 2022-0 Yes [id number] TAKE 1 [facility] 10 mg 7-03 TABLET BY it[facility] of tablet 00:00: MOUTH IN [place] 00 THE Medical MORNING Branch losartan 50 2022-0 Yes [id number] 50mg Take 1 [facility] mg tablet 7-03 tablet by ity o f 00:00: mouth in [place] 00 the Medical morning. Branch MONTELUKAST 2022-0 Yes [id number] TAKE 1 [facility] 10 mg 7-03 TABLET BY ity of tablet 00:00: MOUTH IN [place] 00 THE Medical MORNING Branch losartan 50 2022-0 Yes [id number] 50mg Take 1 [facility] mg tablet 7-03 tablet by ity o f 00:00: mouth in [place] 00 the Medical morning. Branch MONTELUKAST 2022-0 Yes [id number] TAKE 1 [facility] 10 mg 7-03 TABLET BY it[facility] of tablet 00:00: MOUTH IN [place] 00 THE Medical MORNING Branch losartan 50 2022-0 Yes [id number] 50mg Take 1 [facility] mg tablet 7-03 tablet by ity o f 00:00: mouth in [place] 00 the Medical morning. Branch MONTELUKAST 2022-0 Yes [id number] TAKE 1 [facility] 10 mg 7-03 TABLET BY ity of tablet 00:00: MOUTH IN [place] 00 THE Medical MORNING Branch losartan 50 2022-0 Yes [id number] 50mg Take 1 [facility] mg tablet 7-03 tablet by ity o f 00:00: mouth in [place] 00 the Medical morning. Branch MONTELUKAST 2022-0 Yes [id number] TAKE 1 [facility] 10 mg 7-03 TABLET BY ity of tablet 00:00: MOUTH IN [place] 00 THE Medical MORNING Branch losartan 50 2022-0 Yes [id number] 50mg Take 1 [facility] mg tablet 7-03 tablet by ity o f 00:00: mouth in [place] 00 the Medical morning. Branch MONTELUKAST 2022-0 Yes [id number] TAKE 1 [facility] 10 mg 7-03 TABLET BY ity of tablet 00:00: MOUTH IN [place] 00 THE Medical MORNING Branch losartan 50 2022-0 Yes [id number] 50mg Take 1 [facility] mg tablet 7-03 tablet by ity o f 00:00: mouth in [place] 00 the Medical morning. Branch MONTELUKAST 2022-0 Yes [id number] TAKE 1 [facility] 10 mg 7-03 TABLET BY ity of tablet 00:00: MOUTH IN [place] 00 THE Medical MORNING Branch losartan 50 2022-0 Yes [id number] 50mg Take 1 [facility] mg tablet 7-03 tablet by ity o f 00:00: mouth in [place] 00 the Medical morning. Branch MONTELUKAST 2022-0 Yes [id number] TAKE 1 [facility] 10 mg 7-03 TABLET BY ity of tablet 00:00: MOUTH IN [place] 00 THE Medical MORNING Branch losartan 50 2022-0 Yes [id number] 50mg Take 1 [facility] mg tablet 7-03 tablet by ity o f 00:00: mouth in [place] 00 the Medical morning. Branch MONTELUKAST 2022-0 Yes [id number] TAKE 1 [facility] 10 mg 7-03 TABLET BY ity of tablet 00:00: MOUTH IN [place] 00 THE Medical MORNING Branch losartan 50 2022-0 Yes [id number] 50mg Take 1 [facility] mg tablet 7-03 tablet by ity o f 00:00: mouth in [place] 00 the Medical morning. Branch MONTELUKAST 2022-0 Yes [id number] TAKE 1 [facility] 10 mg 7-03 TABLET BY ity of tablet 00:00: MOUTH IN [place] 00 THE Medical MORNING Branch losartan 50 2022-0 Yes [id number] 50mg Take 1 [facility] mg tablet 7-03 tablet by ity o f 00:00: mouth in [place] 00 the Medical morning. Branch MONTELUKAST 2022-0 Yes [id number] TAKE 1 [facility] 10 mg 7-03 TABLET BY ity of tablet 00:00: MOUTH IN [place] 00 THE Medical MORNING Branch losartan 50 2022-0 Yes [id number] 50mg Take 1 [facility] mg tablet 7-03 tablet by ity o f 00:00: mouth in [place] 00 the Medical morning. Branch MONTELUKAST 2022-0 Yes [id number] TAKE 1 [facility] 10 mg 7-03 TABLET BY ity of tablet 00:00: MOUTH IN [place] 00 THE Medical MORNING Branch losartan 50 2022-0 Yes [id number] 50mg Take 1 [facility] mg tablet 7-03 tablet by ity o f 00:00: mouth in [place] 00 the Medical morning. Branch MONTELUKAST 2022-0 Yes [id number] TAKE 1 [facility] 10 mg 7-03 TABLET BY ity of tablet 00:00: MOUTH IN [place] 00 THE Medical MORNING Branch losartan 50 2022-0 Yes [id number] 50mg Take 1 [facility] mg tablet 7-03 tablet by ity o f 00:00: mouth in [place] 00 the Medical morning. Branch MONTELUKAST 2022-0 Yes [id number] TAKE 1 [facility] 10 mg 7-03 TABLET BY ity of tablet 00:00: MOUTH IN [place] 00 THE Medical MORNING Branch losartan 50 2022-0 Yes [id number] 50mg Take 1 [facility] mg tablet 7-03 tablet by ity o f 00:00: mouth in [place] 00 the Medical morning. Branch MONTELUKAST 2022-0 Yes [id number] TAKE 1 [facility] 10 mg 7-03 TABLET BY ity of tablet 00:00: MOUTH IN [place] 00 THE Medical MORNING Branch losartan 50 2022-0 Yes [id number] 50mg Take 1 [facility] mg tablet 7-03 tablet by ity o f 00:00: mouth in [place] 00 the Medical morning. Branch MONTELUKAST 2022-0 Yes [id number] TAKE 1 [facility] 10 mg 7-03 TABLET BY ity of tablet 00:00: MOUTH IN [place] 00 THE Medical MORNING Branch losartan 50 2022-0 Yes [id number] 50mg Take 1 [facility] mg tablet 7-03 tablet by ity o f 00:00: mouth in [place] 00 the Medical morning. Branch MONTELUKAST 2022-0 Yes [id number] TAKE 1 [facility] 10 mg 7-03 TABLET BY ity of tablet 00:00: MOUTH IN [place] 00 THE Medical MORNING Branch losartan 50 2022-0 Yes [id number] 50mg Take 1 [facility] mg tablet 7-03 tablet by ity o f 00:00: mouth in [place] 00 the Medical morning. Branch MONTELUKAST 2022-0 Yes [id number] TAKE 1 [facility] 10 mg 7-03 TABLET BY ity of tablet 00:00: MOUTH IN [place] 00 THE Medical MORNING Branch losartan 50 2022-0 Yes [id number] 50mg Take 1 [facility] mg tablet 7-03 tablet by ity o f 00:00: mouth in [place] 00 the Medical morning. Branch MONTELUKAST 2022-0 Yes [id number] TAKE 1 [facility] 10 mg 7-03 TABLET BY ity of tablet 00:00: MOUTH IN [place] 00 THE Medical MORNING Branch losartan 50 2022-0 Yes [id number] 50mg Take 1 [facility] mg tablet 7-03 tablet by ity o f 00:00: mouth in [place] 00 the Medical morning. Branch losartan 50 3-0 Yes [id number] 50mg Take 1 [facility] mg tablet 7-03 tablet by ity o f 00:00: mouth in [place] 00 the Medical morning. Branch losartan 50 3-0 Yes [id number] 50mg Take 1 [facility] mg tablet 7-03 tablet by ity o f 00:00: mouth in [place] 00 the Medical morning. Branch losartan 50 3-0 Yes [id number] 50mg Take 1 [facility] mg tablet 7-03 tablet by ity o f 00:00: mouth in [place] 00 the Medical morning. Branch losartan 50 3-0 Yes [id number] 50mg Take 1 [facility] mg tablet 7-03 tablet by ity o f 00:00: mouth in [place] 00 the Medical morning. Branch losartan 50 3-0 Yes [id number] 50mg Take 1 [facility] mg tablet 7-03 tablet by ity o f 00:00: mouth in [place] the Medical morning. Branch losartan 50 3-0 Yes [id number] 50mg Take 1 [facility] mg tablet 7-03 tablet by ity o f 00:00: mouth in [place] the Medical morning. Branch losartan 50 3-0 Yes [id number] 50mg Take 1 [facility] mg tablet 7-03 tablet by ity o f 00:00: mouth in [place] 00 the Medical morning. Branch losartan 50 3-0 Yes [id number] 50mg Take 1 [facility] mg tablet 7-03 tablet by ity o f 00:00: mouth in [place] the Medical morning. Branch losartan 50 3-0 Yes [id number] 50mg Take 1 [facility] mg tablet 7-03 tablet by ity o f 00:00: mouth in [place] 00 the Medical morning. Branch losartan 50 3-0 Yes [id number] 50mg Take 1 [facility] mg tablet 7-03 tablet by ity o f 00:00: mouth in [place] 00 the Medical morning. Branch losartan 50 3-0 Yes [id number] 50mg Take 1 [facility] mg tablet 7-03 tablet by ity o f 00:00: mouth in [place] 00 the Medical morning. Branch losartan 50 2023-0 Yes [id number] 50mg Take 1 [facility] mg tablet 7-03 tablet by ity o f 00:00: mouth in [place] 00 the Medical morning. Branch losartan 50 2023-0 Yes [id number] 50mg Take 1 [facility] mg tablet 7-03 tablet by ity o f 00:00: mouth in [place] 00 the Medical morning. Branch losartan 50 2022-0 Yes [id number] 50mg Take 1 [facility] mg tablet 7-03 tablet by ity o f 00:00: mouth in [place] 00 the Medical morning. Branch losartan 50 2022-0 Yes [id number] 50mg Take 1 [facility] mg tablet 7-03 tablet by ity o f 00:00: mouth in [place] 00 the Medical morning. Branch losartan 50 2022-0 Yes [id number] 50mg Take 1 [facility] mg tablet 7-03 tablet by ity o f 00:00: mouth in [place] 00 the Medical morning. Branch losartan 50 2022-0 Yes [id number] 50mg Take 1 [facility] mg tablet 7-03 tablet by ity o f 00:00: mouth in [place] 00 the Medical morning. Branch losartan 50 2022-0 Yes [id number] 50mg Take 1 [facility] mg tablet 7-03 tablet by ity o f 00:00: mouth in [place] 00 the Medical morning. Branch losartan 50 2022-0 Yes [id number] 50mg Take 1 [facility] mg tablet 7-03 tablet by ity o f 00:00: mouth in [place] 00 the Medical morning. Branch losartan 50 2022-0 Yes [id number] 50mg Take 1 [facility] mg tablet 7-03 tablet by ity o f 00:00: mouth in [place] 00 the Medical morning. Branch losartan 50 2022-0 Yes [id number] 50mg Take 1 [facility] mg tablet 7-03 tablet by ity o f 00:00: mouth in [place] 00 the Medical morning. Branch losartan 50 2022-0 Yes [id number] 50mg Take 1 [facility] mg tablet 7-03 tablet by ity o f 00:00: mouth in [place] 00 the Medical morning. Branch MONTELUKAST 2022-0 3- No [id number] TAKE 1 [facility] 10 mg 7-03 08-10 TABLET BY ity of tablet 00:00: 00:00 MOUTH IN [place] 00 :00 THE Medical MORNING Branch MONTELUKAST 2022-0 2022- No [id number] TAKE 1 [facility] 10 mg 7-03 08-10 TABLET BY ity of tablet 00:00: 00:00 MOUTH IN [place] 00 :00 THE Medical MORNING Branch MONTELUKAST 2022-0 3- No [id number] TAKE 1 [facility] 10 mg 7-03 08-10 TABLET BY ity of tablet 00:00: 00:00 MOUTH IN [place] 00 :00 THE Medical MORNING Branch MONTELUKAST 2022- No [id number] TAKE 1 [facility] 10 mg 7- 08-10 TABLET BY ity of tablet 00:00: 00:00 MOUTH IN [place] 00 :00 THE Medical MORNING Branch ketorolac 2022- No 30mg 30 mg, Unive rs (TORADOL) 10-28 Slow IV ity of injection 23:30: 22:27 Push, [place] 30 mg 00 :00 ONCE, 1 Medical dose, On Branch [place] 10/28/22 at 1830, GARY sulfamethox 2022- No 1{tbl} 1 tablet, Univers azole-trime 10-28 Oral, ity of thoprim 22:30: 22:26 ONCE, 1 [place] (BACTRIM 00 :00 dose, On Medical DS) 800-160 [facility] mg per 10/28/22 at tablet 1 1730, tablet GARY
Re ason for Anti-Infec tive: Documented Infection< br>Documen carey Infection Site: Urine
D uration of Therapy: 10 days vancomycin No 1000mg 1,000 mg, Univers (VANCOCIN) 10-28 IV ity of 1,000 mg in 21:30: 22:21 [facility], [place] NaCl 0.9% 00 :00 ONCE, 1 Medical (NS) 250 mL dose, On [facility] VIALMATE [place] IV 10/28/22 at piggyback 1630, Administer over 60 Minutes, 250 mL
Reas on for Anti-Infec tive: Documented Infection< br>Documen carey Infection Site: Urine<br&g t;Duration of Therapy: Other (see Comments) morpHINE (4 2022- No 4mg 4 mg, Slow [facility] mg/mL) 10-28 IV [place], ity of injection 4 19:00: 18:56 ONCE, 1 [place] mg 00 :00 dose, On Medical [facility] 10/28/22 at 1400, STAT ondansetron 2022- No 4mg 4 mg, Slow Univers (ZOFRAN 6-18 06-18 IV Push, ity of (PF)) 16:00: 15:57 ONCE, 1 [place] injection 4 00 :00 dose, On Medi lula mg [place] Branch 10/28/22 at 1100, GARY morpHINE (4 2022- No 4mg 4 mg, Slow Univers mg/mL) 10-2818 IV [place], ity of injection 4 16:00: 15:57 ONCE, 1 [place] mg 00 :00 dose, On Medical [facility] 10/28/22 at 1100, STAT sulfamethox 2022-0 Yes 1{tbl} Take 1 [facility] azole-trime 6-18 tablet by ity of thoprim 00:00: mouth [place] 800-160 mg 00 every 12 Medic al per tablet (twelve) Branc h hours. gabapentin 2022-0 Yes [id number] 100mg Take 1 [facility] 100 mg 6-18 capsule by ity of capsule 00:00: mouth in [place] 00 the Medical morning Branch and 1 capsule at noon and 1 capsule in the evening. ketorolac 2022-0 Yes [id number] 10mg Take 1 U nivers 10 mg 6-18 tablet by ity of tablet 00:00: mouth [place] 00 every 6 Medical (six) Branch hours as needed for Pain (scale 4-6). sulfamethox 2022-0 Yes 1{tbl} Take 1 [facility] azole-trime 6-18 tablet by ity of thoprim 00:00: mouth [place] 800-160 mg 00 every 12 Medic al per tablet (twelve) Branc h hours. gabapentin 2022-0 Yes [id number] 100mg Take 1 [facility] 100 mg 6-18 capsule by ity of capsule 00:00: mouth in [place] 00 the Medical morning Branch and 1 capsule at noon and 1 capsule in the evening. ketorolac 2022-0 Yes [id number] 10mg Take 1 U nivers 10 mg 6-18 tablet by ity of tablet 00:00: mouth [place] 00 every 6 Medical (six) Branch hours as needed for Pain (scale 4-6). sulfamethox 2022-0 Yes 1{tbl} Take 1 [facility] azole-trime 6-18 tablet by ity of thoprim 00:00: mouth [place] 800-160 mg 00 every 12 Medic al per tablet (twelve) Branc h hours. gabapentin 2022-0 Yes [id number] 100mg Take 1 [facility] 100 mg 6-18 capsule by ity of capsule 00:00: mouth in [place] 00 the Medical morning Branch and 1 capsule at noon and 1 capsule in the evening. ketorolac 2023-0 Yes [id number] 10mg Take 1 U nivers 10 mg 6-18 tablet by ity of tablet 00:00: mouth [place] 00 every 6 Medical (six) Branch hours as needed for Pain (scale 4-6). sulfamethox 2023-0 Yes [id number] 1{tbl} Take 1 [facility] azole-trime 6-18 tablet by ity of thoprim 00:00: mouth [place] 800-160 mg 00 every 12 Medic al per tablet (twelve) Branc h hours. gabapentin 2023-0 Yes [id number] 100mg Take 1 [facility] 100 mg 6-18 capsule by ity of capsule 00:00: mouth in [place] 00 the Medical morning Branch and 1 capsule at noon and 1 capsule in the evening. ketorolac 2023-0 Yes [id number] 10mg Take 1 U nivers 10 mg 6-18 tablet by ity of tablet 00:00: mouth [place] 00 every 6 Medical (six) Branch hours as needed for Pain (scale 4-6). sulfamethox 2023-0 Yes [id number] 1{tbl} Take 1 [facility] azole-trime 6-18 tablet by ity of thoprim 00:00: mouth [place] 800-160 mg 00 every 12 Medic al per tablet (twelve) Branc h hours. gabapentin 2023-0 Yes [id number] 100mg Take 1 [facility] 100 mg 6-18 capsule by ity of capsule 00:00: mouth in [place] 00 the Medical morning Branch and 1 capsule at noon and 1 capsule in the evening. ketorolac 2023-0 Yes [id number] 10mg Take 1 U nivers 10 mg 6-18 tablet by ity of tablet 00:00: mouth [place] 00 every 6 Medical (six) Branch hours as needed for Pain (scale 4-6). sulfamethox 2023-0 Yes [id number] 1{tbl} Take 1 [facility] azole-trime 6-18 tablet by ity of thoprim 00:00: mouth [place] 800-160 mg 00 every 12 Medic al per tablet (twelve) Branc h hours. gabapentin 2023-0 Yes [id number] 100mg Take 1 [facility] 100 mg 6-18 capsule by ity of capsule 00:00: mouth in [place] 00 the Medical morning Branch and 1 capsule at noon and 1 capsule in the evening. ketorolac 2022-0 Yes [id number] 10mg Take 1 U nivers 10 mg 6-18 tablet by ity of tablet 00:00: mouth [place] 00 every 6 Medical (six) Branch hours as needed for Pain (scale 4-6). sulfamethox 2022-0 Yes 1{tbl} Take 1 [facility] azole-trime 6-18 tablet by ity of thoprim 00:00: mouth [place] 800-160 mg 00 every 12 Medic al per tablet (twelve) Branc h hours. gabapentin 2022-0 Yes [id number] 100mg Take 1 [facility] 100 mg 6-18 capsule by ity of capsule 00:00: mouth in [place] [address] the Medical morning Branch and 1 capsule at noon and 1 capsule in the evening. ketorolac 2022-0 Yes [id number] 10mg Take 1 U nivers 10 mg 6-18 tablet by ity of tablet 00:00: mouth [place] 00 every 6 Medical (six) Branch hours as needed for Pain (scale 4-6). gabapentin 2022-0 2022- No [id number] 100mg Take 1 [facility] 100 mg 6-18 07-19 capsule by ity of capsule 00:00: 00:00 mouth in [place] 00 :00 the Medical morning Branch and 1 capsule at noon and 1 capsule in the evening. gabapentin 2022-0 2022- No [id number] 100mg Take 1 [facility] 100 mg 6-18 07-19 capsule by ity of capsule 00:00: 00:00 mouth in [place] 00 :00 the Medical morning Branch and 1 capsule at noon and 1 capsule in the evening. gabapentin 2022-0 2022- No [id number] 100mg Take 1 [facility] 100 mg 6-18 07-19 capsule by ity of capsule 00:00: 00:00 mouth in [place] 00 :00 the Medical morning Branch and 1 capsule at noon and 1 capsule in the evening. gabapentin 2022-0 2022- No [id number] 100mg Take 1 [facility] 100 mg 6-18 07-19 capsule by [facility] capsule 00:00: 00:00 mouth in [place] 00 :00 the Medical morning Branch and 1 capsule at noon and 1 capsule in the evening. ketorolac 2023-0 2023- No [id number] 10mg Take 1 [facility] 10 mg 6-18 06-18 tablet by [facility] of tablet 00:00: 00:00 mouth [place] 00 :00 every 6 Medical (six) Branch hours as needed for Pain (scale 4-6). pregabalin 2023-0 Yes 75mg Take 1 [facility] 75 mg 6-06 capsule by [facility] of capsule 00:00: mouth in [place] [id number] the [facility] morning [place] and 1 capsule at noon and 1 capsule in the evening. pregabalin 2023-0 Yes 75mg Take 1 [facility] 75 mg 6-06 capsule by ity of capsule 00:00: mouth in [address] morning [place] and 1 capsule at noon and 1 capsule in the evening. pregabalin 2023-0 Yes 75mg Take 1 [facility] 75 mg 6-06 capsule by ity of capsule 00:00: mouth in [address] morning [place] and 1 capsule at noon and 1 capsule in the evening. pregabalin 2023-0 Yes 75mg Take 1 [facility] 75 mg 6-06 capsule by ity of capsule 00:00: mouth in [address] morning [place] and 1 capsule at noon and 1 capsule in the evening. pregabalin 2023-0 Yes 75mg Take 1 [facility] 75 mg 6-06 capsule by ity of capsule 00:00: mouth in [address] and 1 capsule at noon and 1 capsule in the evening. pregabalin 2023-0 Yes 75mg Take 1 [facility] 75 mg 6-06 capsule by ity of capsule 00:00: mouth in [address] and 1 capsule at noon and 1 capsule in the evening. pregabalin 2023-0 Yes 75mg Take 1 [facility] 75 mg 6-06 capsule by ity of capsule 00:00: mouth in [address] and 1 capsule at noon and 1 capsule in the evening. pregabalin 2023-0 Yes 75mg Take 1 [facility] 75 mg 6-06 capsule by ity of capsule 00:00: mouth in [address] and 1 capsule at noon and 1 capsule in the evening. pregabalin 2023-0 Yes 75mg Take 1 [facility] rs 75 mg 6-06 capsule by ity of capsule 00:00: mouth in [place] [address] the [facility] morning [place] and 1 capsule at noon and 1 capsule in the evening. pregabalin 2023-0 Yes 75mg Take 1 [facility] rs 75 mg 6-06 capsule by ity of capsule 00:00: mouth in [place] [address] the [facility] morning [place] and 1 capsule at noon and 1 capsule in the evening. pregabalin 2023-0 Yes 75mg Take 1 [facility] rs 75 mg 6-06 capsule by ity of capsule 00:00: mouth in [place] [address] the [facility] morning [place] and 1 capsule at noon and 1 capsule in the evening. pregabalin 2023-0 Yes 75mg Take 1 [facility] rs 75 mg 6-06 capsule by ity of capsule 00:00: mouth in [address] morning [place] and 1 capsule at noon and 1 capsule in the evening. pregabalin 2023-0 Yes 75mg Take 1 [facility] rs 75 mg 6-06 capsule by ity of capsule 00:00: mouth in [address] morning [place] and 1 capsule at noon and 1 capsule in the evening. pregabalin 2023-0 Yes 75mg Take 1 [facility] 75 mg 6-06 capsule by [facility]y of capsule 00:00: mouth in [address] morning [place] and 1 capsule at noon and 1 capsule in the evening. pregabalin 2023-0 Yes 75mg Take 1 [facility] 75 mg 6-06 capsule by ity of capsule 00:00: mouth in [address] morning [place] and 1 capsule at noon and 1 capsule in the evening. pregabalin 2023-0 Yes 75mg Take 1 [facility] 75 mg 6-06 capsule by [facility] of capsule 00:00: mouth in [address] morning [place] and 1 capsule at noon and 1 capsule in the evening. pregabalin 2023-0 Yes 75mg Take 1 [facility] 75 mg 6-06 capsule by ity of capsule 00:00: mouth in [address] morning [place] and 1 capsule at noon and 1 capsule in the evening. pregabalin 2023-0 Yes 75mg Take 1 [facility] 75 mg 6-06 capsule by ity of capsule 00:00: mouth in [address] morning [place] and 1 capsule at noon and 1 capsule in the evening. pregabalin 2023-0 Yes 75mg Take 1 [facility] 75 mg 6-06 capsule by [facility]y of capsule 00:00: mouth in [address] morning [place] and 1 capsule at noon and 1 capsule in the evening. pregabalin 2023-0 Yes 75mg Take 1 [facility] 75 mg 6-06 capsule by ity of capsule 00:00: mouth in [address] morning [place] and 1 capsule at noon and 1 capsule in the evening. pregabalin 2023-0 Yes 75mg Take 1 [facility] 75 mg 6-06 capsule by [facility]y of capsule 00:00: mouth in [address] morning [place] and 1 capsule at noon and 1 capsule in the evening. pregabalin 2023-0 Yes 75mg Take 1 [facility] 75 mg 6-06 capsule by [facility]y of capsule 00:00: mouth in [address] morning [place] and 1 capsule at noon and 1 capsule in the evening. pregabalin 2023-0 Yes 75mg Take 1 [facility] 75 mg 6-06 capsule by [facility] of capsule 00:00: mouth in [address] and 1 capsule at noon and 1 capsule in the evening. pregabalin 2023-0 Yes 75mg Take 1 [facility] rs 75 mg 6-06 capsule by ity of capsule 00:00: mouth in [address] morning [place] and 1 capsule at noon and 1 capsule in the evening. pregabalin 2023-0 Yes 75mg Take 1 [facility] rs 75 mg 6-06 capsule by ity of capsule 00:00: mouth in [address] morning [place] and 1 capsule at noon and 1 capsule in the evening. pregabalin 2023-0 Yes 75mg Take 1 [facility] rs 75 mg 6-06 capsule by ity of capsule 00:00: mouth in [address] morning [place] and 1 capsule at noon and 1 capsule in the evening. pregabalin 2023-0 Yes 75mg Take 1 [facility] rs 75 mg 6-06 capsule by ity of capsule 00:00: mouth in [address] morning [place] and 1 capsule at noon and 1 capsule in the evening. pregabalin 2023-0 Yes 75mg Take 1 [facility] rs 75 mg 6-06 capsule by ity of capsule 00:00: mouth in [address] morning [place] and 1 capsule at noon and 1 capsule in the evening. pregabalin 2023-0 Yes 75mg Take 1 [facility] rs 75 mg 6-06 capsule by ity of capsule 00:00: mouth in [address] morning [place] and 1 capsule at noon and 1 capsule in the evening. pregabalin 2023-0 Yes 75mg Take 1 [facility] 75 mg 6-06 capsule by ity of capsule 00:00: mouth in [address] morning [place] and 1 capsule at noon and 1 capsule in the evening. pregabalin 2023-0 Yes 75mg Take 1 [facility] rs 75 mg 6-06 capsule by [facility] of capsule 00:00: mouth in [address] morning [place] and 1 capsule at noon and 1 capsule in the evening. pregabalin 2023-0 Yes 75mg Take 1 [facility] rs 75 mg 6-06 capsule by [facility] of capsule 00:00: mouth in [address] and 1 capsule at noon and 1 capsule in the evening. pregabalin 2023-0 Yes 75mg Take 1 [facility] 75 mg 6-06 capsule by [facility]y of capsule 00:00: mouth in [address] and 1 capsule at noon and 1 capsule in the evening. pregabalin 2023-0 Yes 75mg Take 1 [facility] rs 75 mg 6-06 capsule by ity of capsule 00:00: mouth in [address] and 1 capsule at noon and 1 capsule in the evening. pregabalin 2023-0 Yes 75mg Take 1 [facility] rs 75 mg 6-06 capsule by ity of capsule 00:00: mouth in [address] and 1 capsule at noon and 1 capsule in the evening. pregabalin 2023-0 Yes 75mg Take 1 [facility] rs 75 mg 6-06 capsule by ity of capsule 00:00: mouth in [address] morning [place] and 1 capsule at noon and 1 capsule in the evening. pregabalin 2023-0 Yes 75mg Take 1 [facility] rs 75 mg 6-06 capsule by ity of capsule 00:00: mouth in [address] and 1 capsule at noon and [...] by ity of capsule 00:00: mouth in [place] the Medical morning Branch and 1 capsule at noon and 1 capsule in the evening. pregabalin 2023-0 Yes 75mg Take 1 [facility] rs 75 mg 6-06 capsule by ity of capsule 00:00: mouth in [place] 00 the Medical morning Branch and 1 capsule at noon and 1 capsule in the evening. pregabalin 2023-0 Yes 75mg Take 1 [facility] rs 75 mg 6-06 capsule by ity of capsule 00:00: mouth in [place] the Medical morning Branch and 1 capsule at noon and 1 capsule in the evening. omeprazole 2023-0 Yes [id number] 20mg Take 1 [facility] 20 mg 6-02 capsule by [facility] of capsule 00:00: mouth in [place] the morning. Branch MUST BE SEEN FOR FURTHER REFILLS omeprazole 2023-0 Yes [id number] 20mg Take 1 [facility] 20 mg 6-02 capsule by [facility] of capsule 00:00: mouth in [place] the Medical morning. Branch MUST BE SEEN FOR FURTHER REFILLS montelukast 2023-0 Yes [id number] 10mg Take 1 [facility] 10 mg 6-02 tablet by it[facility] of tablet 00:00: mouth in [place] the morning. Branch MUST BE SEEN FOR FURTHER REFILLS omeprazole 2023-0 Yes [id number] 20mg Take 1 [facility] 20 mg 6-02 capsule by ity of capsule 00:00: mouth in [place] the Medical morning. Branch MUST BE SEEN FOR FURTHER REFILLS montelukast 2023-0 Yes [id number] 10mg Take 1 [facility] 10 mg 6-02 tablet by ity of tablet 00:00: mouth in [place] the Medical morning. Branch MUST BE SEEN FOR FURTHER REFILLS omeprazole 2023-0 Yes [id number] 20mg Take 1 [facility] 20 mg 6-02 capsule by [facility] of capsule 00:00: mouth in [place] the Medical morning. Branch MUST BE SEEN FOR FURTHER REFILLS montelukast 2023-0 Yes [id number] 10mg Take 1 [facility] 10 mg 6-02 tablet by it[facility] of tablet 00:00: mouth in [place] the Medical morning. Branch MUST BE SEEN FOR FURTHER REFILLS omeprazole 2023-0 Yes [id number] 20mg Take 1 [facility] 20 mg 6-02 capsule by it[facility] of capsule 00:00: mouth in [place] 00 the Medical morning. Branch MUST BE SEEN FOR FURTHER REFILLS montelukast 2022-0 Yes [id number] 10mg Take 1 [facility] 10 mg 6-02 tablet by ity of tablet 00:00: mouth in [place] 00 the Medical morning. Branch MUST BE SEEN FOR FURTHER REFILLS omeprazole 2022-0 Yes [id number] 20mg Take 1 [facility] 20 mg 6-02 capsule by ity of capsule 00:00: mouth in [place] the Medical morning. Branch MUST BE SEEN FOR FURTHER REFILLS montelukast 2022-0 Yes [id number] 10mg Take 1 [facility] 10 mg 6-02 tablet by it[facility] of tablet 00:00: mouth in [place] the Medical morning. Branch MUST BE SEEN FOR FURTHER REFILLS omeprazole 2022-0 Yes [id number] 20mg Take 1 [facility] 20 mg 6-02 capsule by ity of capsule 00:00: mouth in [place] the Medical morning. Branch MUST BE SEEN FOR FURTHER REFILLS omeprazole 2022-0 Yes [id number] 20mg Take 1 [facility] 20 mg 6-02 capsule by [facility] of capsule 00:00: mouth in [place] the Medical morning. Branch MUST BE SEEN FOR FURTHER REFILLS omeprazole 2022-0 Yes [id number] 20mg Take 1 [facility] 20 mg 6-02 capsule by ity of capsule 00:00: mouth in [place] the Medical morning. Branch MUST BE SEEN FOR FURTHER REFILLS omeprazole 2022-0 Yes [id number] 20mg Take 1 [facility] 20 mg 6-02 capsule by ity of capsule 00:00: mouth in [place] the Medical morning. Branch MUST BE SEEN FOR FURTHER REFILLS omeprazole 2022-0 Yes [id number] 20mg Take 1 [facility] 20 mg 6-02 capsule by ity of capsule 00:00: mouth in [place] 00 the Medical morning. Branch MUST BE SEEN FOR FURTHER REFILLS omeprazole 2022-0 2022- No [id number] 20mg Take 1 [facility] 20 mg 6-02 07-19 capsule by ity of capsule 00:00: 00:00 mouth in [place] 00 :00 the Medical morning. Branch MUST BE SEEN FOR FURTHER REFILLS omeprazole 2022-0 3- No [id number] 20mg Take 1 [facility] 20 mg 6-11-28 capsule by ity of capsule 00:00: 00:00 mouth in [place] 00 :00 the Medical morning. Branch MUST BE SEEN FOR FURTHER REFILLS omeprazole 3- No [id number] 20mg Take 1 [facility] 20 mg 6-06 19- capsule by ity of capsule 00:00: 00:00 mouth in [place] 00 :00 the Medical morning. Branch MUST BE SEEN FOR FURTHER REFILLS omeprazole 0 3- No [id number] 20mg Take 1 [facility] 20 mg -11-28 capsule by ity of capsule 00:00: 00:00 mouth in [place] 00 :00 the Medical morning. Branch MUST BE SEEN FOR FURTHER REFILLS montelukast 2022- No [id number] 10mg Take 1 [facility] 10 mg 10-12 tablet by it[facility] of tablet 00:00: 00:00 mouth in [place] 00 :00 the Medical morning. Branch MUST BE SEEN FOR FURTHER REFILLS metFORMIN Yes [id number] 1000mg Take 1 [facility] 1,000 mg 4-26 tablet by [facility] of tablet 00:00: mouth in [address] and 1 tablet in the evening. Take with meals. MUST BE SEEN FOR FURTHER REFILLS metFORMIN Yes [id number] 1000mg Take 1 [facility] 1,000 mg 4-26 tablet by ity of tablet 00:00: mouth in [address] and 1 tablet in the evening. Take with meals. MUST BE SEEN FOR FURTHER REFILLS metFORMIN 0 Yes [id number] 1000mg Take 1 [facility] 1,000 mg 4-26 tablet by ity of tablet 00:00: mouth in [address] and 1 tablet in the evening. Take with meals. MUST BE SEEN FOR FURTHER REFILLS metFORMIN 2022-0 Yes [id number] 1000mg Take 1 [facility] 1,000 mg 4-26 tablet by ity of tablet 00:00: mouth in [address] and 1 tablet in the evening. Take with meals. MUST BE SEEN FOR FURTHER REFILLS metFORMIN 2022-0 Yes [id number] 1000mg Take 1 [facility] 1,000 mg 4-26 tablet by [facility] of tablet 00:00: mouth in [address] and 1 tablet in the evening. Take with meals. MUST BE SEEN FOR FURTHER REFILLS metFORMIN 2023-0 Yes [id number] 1000mg Take 1 [facility] 1,000 mg 4-26 tablet by ity of tablet 00:00: mouth in [address] and 1 tablet in the evening. Take with meals. MUST BE SEEN FOR FURTHER REFILLS metFORMIN 2023-0 Yes [id number] 1000mg Take 1 [facility] 1,000 mg 4-26 tablet by ity of tablet 00:00: mouth in [address] and 1 tablet in the evening. Take with meals. MUST BE SEEN FOR FURTHER REFILLS metFORMIN 2023-0 Yes [id number] 1000mg Take 1 [facility] 1,000 mg 4-26 tablet by ity of tablet 00:00: mouth in [address] and 1 tablet in the evening. Take with meals. MUST BE SEEN FOR FURTHER REFILLS metFORMIN 2023-0 Yes [id number] 1000mg Take 1 [facility] 1,000 mg 4-26 tablet by ity of tablet 00:00: mouth in [address] and 1 tablet in the evening. Take with meals. MUST BE SEEN FOR FURTHER REFILLS metFORMIN 2023-0 Yes [id number] 1000mg Take 1 [facility] 1,000 mg 4-26 tablet by ity of tablet 00:00: mouth in [address] and 1 tablet in the evening. Take with meals. MUST BE SEEN FOR FURTHER REFILLS metFORMIN 2023-0 Yes [id number] 1000mg Take 1 [facility] 1,000 mg 4-26 tablet by ity of tablet 00:00: mouth in [address] and 1 tablet in the evening. Take with meals. MUST BE SEEN FOR FURTHER REFILLS metFORMIN 2023-0 Yes [id number] 1000mg Take 1 [facility] 1,000 mg 4-26 tablet by ity of tablet 00:00: mouth in [address] and 1 tablet in the evening. Take with meals. MUST BE SEEN FOR FURTHER REFILLS metFORMIN 2023-0 Yes [id number] 1000mg Take 1 [facility] 1,000 mg 4-26 tablet by ity of tablet 00:00: mouth in [address] and 1 tablet in the evening. Take with meals. MUST BE SEEN FOR FURTHER REFILLS metFORMIN 2023-0 Yes [id number] 1000mg Take 1 [facility] 1,000 mg 4-26 tablet by ity of tablet 00:00: mouth in [place] 00 the Medical morning Branch and 1 tablet in the evening. Take with meals. MUST BE SEEN FOR FURTHER REFILLS metFORMIN 2022-0 3- No [id number] 1000mg Take 1 [facility] 1,000 mg 4-26 07-19 tablet by ity o f tablet 00:00: 00:00 mouth in [place] 00 :00 the Medical morning Branch and 1 tablet in the evening. Take with meals. MUST BE SEEN FOR FURTHER REFILLS metFORMIN 2022-0 2023- No [id number] 1000mg Take 1 [facility] 1,000 mg 4-26 07-19 tablet by ity o f tablet 00:00: 00:00 mouth in [place] 00 :00 the Medical morning Branch and 1 tablet in the evening. Take with meals. MUST BE SEEN FOR FURTHER REFILLS metFORMIN 2022-0 2023- No [id number] 1000mg Take 1 [facility] 1,000 mg 4-26 07-19 tablet by ity o f tablet 00:00: 00:00 mouth in [place] 00 :00 the Medical morning Branch and 1 tablet in the evening. Take with meals. MUST BE SEEN FOR FURTHER REFILLS metFORMIN 2022-0 3- No [id number] 1000mg Take 1 [facility] 1,000 mg 4-26 07-19 tablet by ity o f tablet 00:00: 00:00 mouth in [place] 00 :00 the Medical morning Branch and 1 tablet in the evening. Take with meals. MUST BE SEEN FOR FURTHER REFILLS fluticasone 0 Yes [id number] 1{spray Use 1 [facility] propionate 4-21 } [facility] in [place] [id number] 00:00: each [place] mcg/actuati 00 nostril in Me dical on nasal the Branch spray morning and 1 [place] in the evening. fluticasone 2022-0 Yes [id number] 1{spray Use 1 [facility] propionate 4-21 } [facility] in [facility] f 50 00:00: each [place] mcg/actuati 00 nostril in Me dical on nasal the Branch spray morning and 1 [place] in the evening. fluticasone 2022-0 Yes [id number] 1{spray Use 1 [facility] propionate 4-21 } [facility] in [facility] o f 50 00:00: each [place] mcg/actuati 00 nostril in Me dical on nasal the Branch spray morning and 1 [place] in the evening. fluticasone 2022-0 Yes [id number] 1{spray Use 1 [facility] propionate 4-21 } [facility] in [facility]y o f 50 00:00: each [place] mcg/actuati 00 nostril in Me dical on nasal the Branch spray morning and 1 [place] in the evening. fluticasone 0 Yes [id number] 1{spray Use 1 [facility] propionate 4-21 } [facility] in it o 50 00:00: each [place] mcg/actuati 00 nostril in Me dical on nasal the Branch spray morning and 1 [place] in the evening. fluticasone 2022-0 Yes [id number] 1{spray Use 1 [facility] propionate 4-21 } [facility] in it o 50 00:00: each [place] mcg/actuati 00 nostril in Me dical on nasal the Branch spray morning and 1 [place] in the evening. fluticasone 0 Yes [id number] 1{spray Use 1 [facility] propionate 4-21 } [facility] in [facility] 00:00: each [place] mcg/actuati 00 nostril in Me dical on nasal the Branch spray morning and 1 [place] in the evening. fluticasone 0 Yes [id number] 1{spray Use 1 [facility] propionate 4-21 } [facility] in [facility] 00:00: each [place] mcg/actuati 00 nostril in Me dical on nasal the Branch spray morning and 1 [place] in the evening. fluticasone 0 Yes [id number] 1{spray Use 1 [facility] propionate 4-21 } [facility] in [facility] 00:00: each [place] mcg/actuati 00 nostril in Me dical on nasal the Branch spray morning and 1 [facility] in the evening. fluticasone 0 Yes [id number] 1{spray Use 1 [facility] propionate 4-21 } [facility] in it o 50 00:00: each [place] mcg/actuati 00 nostril in Me dical on nasal the Branch spray morning and 1 [place] in the evening. fluticasone 2022-0 Yes [id number] 1{spray Use 1 [facility] propionate 4-21 } [facility] in it o 50 00:00: each [place] mcg/actuati 00 nostril in Me dical on nasal the Branch spray morning and 1 [facility] in the evening. fluticasone 2022-0 Yes [id number] 1{spray Use 1 [facility] propionate 4-21 } [facility] in it o 50 00:00: each [place] mcg/actuati 00 nostril in Me dical on nasal the Branch spray morning and 1 [place] in the evening. fluticasone 2022-0 Yes [id number] 1{spray Use 1 [facility] propionate 4-21 } [facility] in it o 50 00:00: each [place] mcg/actuati 00 nostril in Me dical on nasal the Branch spray morning and 1 [facility] in the evening. fluticasone 2022-0 Yes [id number] 1{spray Use 1 [facility] propionate 4-21 } [facility] in [facility] 00:00: each [place] mcg/actuati 00 nostril in Me dical on nasal the Branch spray morning and 1 [place] in the evening. fluticasone 2022-0 Yes [id number] 1{spray Use 1 [facility] propionate 4-21 } [facility] in [facility] 00:00: each [place] mcg/actuati 00 nostril in Me dical on nasal the Branch spray morning and 1 [place] in the evening. fluticasone 2022-0 Yes [id number] 1{spray Use 1 [facility] propionate 4-21 } [facility] in [facility] 00:00: each [place] mcg/actuati 00 nostril in Me dical on nasal the Branch spray morning and 1 [place] in the evening. fluticasone 2022-0 Yes [id number] 1{spray Use 1 [facility] propionate 4-21 } [facility] in [facility] 00:00: each [place] mcg/actuati 00 nostril in Me dical on nasal the Branch spray morning and 1 [place] in the evening. fluticasone 2022-0 Yes [id number] 1{spray Use 1 [facility] propionate 4-21 } [facility] in [facility] o 50 00:00: each [place] mcg/actuati 00 nostril in Me dical on nasal the Branch spray morning and 1 [place] in the evening. fluticasone 2022-0 Yes [id number] 1{spray Use 1 [facility] propionate 4-21 } [facility] in it o 50 00:00: each [place] mcg/actuati 00 nostril in Me dical on nasal the Branch spray morning and 1 [facility] in the evening. fluticasone 2022-0 Yes [id number] 1{spray Use 1 [facility] propionate 4-21 } [facility] in it o 50 00:00: each [place] mcg/actuati 00 nostril in Me dical on nasal the Branch spray morning and 1 [place] in the evening. fluticasone 2022-0 Yes [id number] 1{spray Use 1 [facility] propionate 4-21 } [facility] in [facility] o 50 00:00: each [place] mcg/actuati 00 nostril in Me dical on nasal the Branch spray morning and 1 [place] in the evening. fluticasone 2022-0 Yes [id number] 1{spray Use 1 [facility] propionate 4-21 } [facility] in [facility] 00:00: each [place] mcg/actuati 00 nostril in Me dical on nasal the Branch spray morning and 1 [place] in the evening. fluticasone 2022-0 Yes [id number] 1{spray Use 1 [facility] propionate 4-21 } [facility] in [place] [id number] 00:00: each [place] mcg/actuati 00 nostril in Me dical on nasal the Branch spray morning and 1 [place] in the evening. fluticasone 2022-0 Yes [id number] 1{spray Use 1 [facility] propionate 4-21 } [facility] in [place] [id number] 00:00: each [place] mcg/actuati 00 nostril in Me dical on nasal the Branch spray morning and 1 [place] in the evening. fluticasone 2022-0 Yes [id number] 1{spray Use 1 [facility] propionate 4-21 } [facility] in [place] [id number] 00:00: each [place] mcg/actuati 00 nostril in Me dical on nasal the Branch spray morning and 1 [place] in the evening. fluticasone 2022-0 Yes [id number] 1{spray Use 1 [facility] propionate 4-21 } [facility] in [place] [id number] 00:00: each [place] mcg/actuati 00 nostril in Me dical on nasal the Branch spray morning and 1 [place] in the evening. fluticasone 2022-0 Yes [id number] 1{spray Use 1 [facility] propionate 4-21 } [facility] in [facility] o 50 00:00: each [place] mcg/actuati 00 nostril in Me dical on nasal the Branch spray morning and 1 [facility] in the evening. fluticasone 2022-0 Yes [id number] 1{spray Use 1 [facility] propionate 4-21 } [facility] in [place] [id number] 00:00: each [place] mcg/actuati 00 nostril in Me dical on nasal the Branch spray morning and 1 [facility] in the evening. fluticasone 2022-0 Yes [id number] 1{spray Use 1 [facility] propionate 4-21 } [facility] in [facility] 50 00:00: each [place] mcg/actuati 00 nostril in Me dical on nasal the Branch spray morning and 1 [facility] in the evening. fluticasone 2022-0 Yes [id number] 1{spray Use 1 [facility] propionate 4-21 } [facility] in [facility] f 50 00:00: each [place] mcg/actuati 00 nostril in Me dical on nasal the Branch spray morning and 1 [facility] in the evening. fluticasone 2022-0 Yes [id number] 1{spray Use 1 [facility] propionate 4-21 } [facility] in it o f 50 00:00: each [place] mcg/actuati 00 nostril in Me dical on nasal the Branch spray morning and 1 [facility] in the evening. fluticasone 2022-0 Yes [id number] 1{spray Use 1 [facility] propionate 4-21 } [facility] in it o 50 00:00: each [place] mcg/actuati 00 nostril in Me dical on nasal the Branch spray morning and 1 [facility] in the evening. fluticasone 2022-0 Yes [id number] 1{spray Use 1 [facility] propionate 4-21 } [facility] in it [facility] f 50 00:00: each [place] mcg/actuati 00 nostril in Me dical on nasal the Branch spray morning and 1 [facility] in the evening. fluticasone 2022-0 Yes [id number] 1{spray Use 1 [facility] propionate 4-21 } [facility] in [facility] f 50 00:00: each [place] mcg/actuati 00 nostril in Me dical on nasal the Branch spray morning and 1 [facility] in the evening. fluticasone 2022-0 Yes [id number] 1{spray Use 1 [facility] propionate 4-21 } [facility] in [facility] f 50 00:00: each [place] mcg/actuati 00 nostril in Me dical on nasal the Branch spray morning and 1 [facility] in the evening. fluticasone 2022-0 Yes [id number] 1{spray Use 1 [facility] propionate 4-21 } [facility] in [facility] 50 00:00: each [place] mcg/actuati 00 nostril in Me dical on nasal the Branch spray morning and 1 [facility] in the evening. fluticasone 2022-0 Yes [id number] 1{spray Use 1 [facility] propionate 4-21 } [facility] in [facility] 50 00:00: each [place] mcg/actuati 00 nostril in Me dical on nasal the Branch spray morning and 1 [facility] in the evening. fluticasone 2022-0 Yes [id number] 1{spray Use 1 [facility] propionate 4-21 } [facility] in [facility] 50 00:00: each [place] mcg/actuati 00 nostril in Me dical on nasal the Branch spray morning and 1 [facility] in the evening. fluticasone 2022-0 Yes [id number] 1{spray Use 1 [facility] propionate 4-21 } [facility] in it [facility] f 50 00:00: each [place] mcg/actuati 00 nostril in Me dical on nasal the Branch spray morning and 1 [facility] in the evening. fluticasone 2022-0 Yes [id number] 1{spray Use 1 [facility] propionate 4-21 } [facility] in it o 50 00:00: each [place] mcg/actuati 00 nostril in Me dical on nasal the Branch spray morning and 1 [facility] in the evening. fluticasone 2022-0 Yes [id number] 1{spray Use 1 [facility] propionate 4-21 } [facility] in it [facility] f 50 00:00: each [place] mcg/actuati 00 nostril in Me dical on nasal the Branch spray morning and 1 [facility] in the evening. fluticasone 2022-0 Yes [id number] 1{spray Use 1 [facility] propionate 4-21 } [facility] in [facility] o f 50 00:00: each [place] mcg/actuati 00 nostril in Me dical on nasal the Branch spray morning and 1 [facility] in the evening. fluticasone 2022-0 Yes [id number] 1{spray Use 1 [facility] propionate 4-21 } [facility] in ity o f 50 00:00: each [place] mcg/actuati 00 nostril in Me dical on nasal the Branch spray morning and 1 [facility] in the evening. fluticasone 2022-0 Yes [id number] 1{spray Use 1 [facility] propionate 4-21 } [facility] in ity o f 50 00:00: each [place] mcg/actuati 00 nostril in Me dical on nasal the Branch spray morning and 1 [facility] in the evening. fluticasone 2022-0 Yes [id number] 1{spray Use 1 [facility] propionate 4-21 } [place] in ity o f 50 00:00: each [place] mcg/actuati 00 nostril in Me dical on nasal the Branch spray morning and 1 [facility] in the evening. fluticasone 2022-0 Yes [id number] 1{spray Use 1 [facility] propionate 4-21 } [place] in it o 50 00:00: each [place] mcg/actuati 00 nostril in Me dical on nasal the Branch spray morning and 1 [facility] in the evening. fluticasone 2022-0 Yes [id number] 1{spray Use 1 [facility] propionate 4-21 } [place] in it o 50 00:00: each [place] mcg/actuati 00 nostril in Me dical on nasal the Branch spray morning and 1 [facility] in the evening. fluticasone 2022-0 Yes [id number] 1{spray Use 1 [facility] propionate 4-21 } [facility] in [facility] o [facility] 00:00: each [place] mcg/actuati 00 nostril in Me dical on nasal the Branch spray morning and 1 [facility] in the evening. fluticasone 2022-0 Yes [id number] 1{spray Use 1 [facility] propionate 4-21 } [place] in it o 50 00:00: each [place] mcg/actuati 00 nostril in Me dical on nasal the Branch spray morning and 1 [facility] in the evening. fluticasone 2022-0 Yes [id number] 1{spray Use 1 [facility] propionate 4-21 } [place] in it o 50 00:00: each [place] mcg/actuati 00 nostril in Me dical on nasal the Branch spray morning and 1 [facility] in the evening. fluticasone 2022-0 Yes [id number] 1{spray Use 1 [facility] propionate 4-21 } [place] in ity o f 50 00:00: each [place] mcg/actuati 00 nostril in Me dical on nasal the Branch spray morning and 1 [facility] in the evening. fluticasone 2022-0 Yes [id number] 1{spray Use 1 [facility] propionate 4-21 } [facility] in ity o f 50 00:00: each [place] mcg/actuati 00 nostril in Me dical on nasal the Branch spray morning and 1 [facility] in the evening. fluticasone 2022-0 Yes [id number] 1{spray Use 1 [facility] propionate 4-21 } [facility] in it o 50 00:00: each [place] mcg/actuati 00 nostril in Me dical on nasal the Branch spray morning and 1 [facility] in the evening. fluticasone 2022-0 Yes [id number] 1{spray Use 1 [facility] propionate 4-21 } [facility] in it o 50 00:00: each [place] mcg/actuati 00 nostril in Me dical on nasal the Branch spray morning and 1 [facility] in the evening. fluticasone 2022-0 Yes [id number] 1{spray Use 1 [facility] propionate 4-21 } [facility] in [facility] 00:00: each [place] mcg/actuati 00 nostril in Me dical on nasal the Branch spray morning and 1 [facility] in the evening. fluticasone 2022-0 Yes [id number] 1{spray Use 1 [facility] propionate 4-21 } [facility] in [facility] 00:00: each [place] mcg/actuati 00 nostril in Me dical on nasal the Branch spray morning and 1 [facility] in the evening. fluticasone 2022-0 Yes [id number] 1{spray Use 1 [facility] propionate 4-21 } [facility] in [facility] o [facility] 00:00: each [place] mcg/actuati 00 nostril in Me dical on nasal the Branch spray morning and 1 [facility] in the evening. fluticasone 2022-0 Yes [id number] 1{spray Use 1 [facility] propionate 4-21 } [facility] in it o 50 00:00: each [place] mcg/actuati 00 nostril in Me dical on nasal the Branch spray morning and 1 [facility] in the evening. fluticasone 2022-0 Yes [id number] 1{spray Use 1 [facility] propionate 4-21 } [facility] in it o 50 00:00: each [place] mcg/actuati 00 nostril in Me dical on nasal the Branch spray morning and 1 [facility] in the evening. fluticasone 2022-0 Yes [id number] 1{spray Use 1 [facility] propionate 4-21 } [facility] in it o 50 00:00: each [place] mcg/actuati 00 nostril in Me dical on nasal the Branch spray morning and 1 [facility] in the evening. fluticasone 2022-0 Yes [id number] 1{spray Use 1 [facility] propionate 4-21 } [facility] in ity o f 50 00:00: each [place] mcg/actuati 00 nostril in [place] dical on nasal the Branch spray morning and 1 [facility] in the evening. fluticasone 2022-0 Yes [id number] 1{spray Use 1 [facility] propionate 4-21 } [facility] in ity o f 50 00:00: each [place] mcg/actuati 00 nostril in Or dical on nasal the Branch spray morning and 1 [facility] in the evening. metoprolol 2022-0 2023- No 25mg Take 25 mg [facility] tartrate 25 2-20 02-20 by mouth ity of mg tablet 09:42: 00:00 in the [place] 57 :00 morning Medical and 25 mg Branch in the evening. Patient takes half tablet twice daily metoprolol 2022-0 Yes [id number] 12.5mg Take 0.5 [facility] tartrate 25 2-20 tablets by it y of mg tablet 00:00: [facility] morning Branch and 0.5 tablets in the evening. Patient takes half tablet twice daily losartan 50 2022-0 Yes [id number] 50mg Take 1 [facility] mg tablet 2-20 tablet by ity o f 00:00: mouth in [place] 00 the Medical morning. Branch metoprolol 2022-0 Yes [id number] 12.5mg Take 0.5 [facility] tartrate 25 2-20 tablets by it y of mg tablet 00:00: mouth in [facility] the Medical morning Branch and 0.5 tablets in the evening. Patient takes half tablet twice daily losartan 50 2022-0 Yes [id number] 50mg Take 1 [facility] mg tablet 2-20 tablet by ity o f 00:00: mouth in [place] 00 the Medical morning. Branch metoprolol 3-0 Yes [id number] 12.5mg Take 0.5 [facility] tartrate 25 2-20 tablets by it y of mg tablet 00:00: mouth in [facility] the Medical morning Branch and 0.5 tablets in the evening. Patient takes half tablet twice daily losartan 50 2022-0 Yes [id number] 50mg Take 1 [facility] mg tablet 2-20 tablet by ity o f 00:00: mouth in [place] 00 the Medical morning. Branch metoprolol 2023-0 Yes [id number] 12.5mg Take 0.5 [facility] tartrate 25 2-20 tablets by it y of mg tablet 00:00: mouth in [place] the morning Branch and 0.5 tablets in the evening. Patient takes half tablet twice daily losartan 50 2023-0 Yes [id number] 50mg Take 1 [facility] mg tablet 2-20 tablet by ity o f 00:00: mouth in [place] the morning. Branch metoprolol 2023-0 Yes [id number] 12.5mg Take 0.5 [facility] tartrate 25 2-20 tablets by it y of mg tablet 00:00: mouth in [place] the morning Branch and 0.5 tablets in the evening. Patient takes half tablet twice daily losartan 50 3-0 Yes [id number] 50mg Take 1 [facility] mg tablet 2-20 tablet by ity o f 00:00: mouth in [place] the morning. Branch metoprolol 2023-0 Yes [id number] 12.5mg Take 0.5 [facility] tartrate 25 2-20 tablets by it y of mg tablet 00:00: mouth in [facility] the morning Branch and 0.5 tablets in the evening. Patient takes half tablet twice daily losartan 50 3-0 Yes [id number] 50mg Take 1 [facility] mg tablet 2-20 tablet by ity o f 00:00: mouth in [place] the morning. Branch metoprolol 2023-0 Yes [id number] 12.5mg Take 0.5 [facility] tartrate 25 2-20 tablets by it y of mg tablet 00:00: mouth in [facility] the morning Branch and 0.5 tablets in the evening. Patient takes half tablet twice daily losartan 50 3-0 Yes [id number] 50mg Take 1 [facility] mg tablet 2-20 tablet by ity o f 00:00: mouth in [place] the morning. Branch metoprolol 2023-0 Yes [id number] 12.5mg Take 0.5 [facility] tartrate 25 2-20 tablets by it y of mg tablet 00:00: mouth in [place] the morning Branch and 0.5 tablets in the evening. Patient takes half tablet twice daily losartan 50 3-0 Yes [id number] 50mg Take 1 [facility] mg tablet 2-20 tablet by ity o f 00:00: mouth in [place] the Medical morning. Branch metoprolol 2023-0 Yes [id number] 12.5mg Take 0.5 [facility] tartrate 25 2-20 tablets by it y of mg tablet 00:00: mouth in [facility] the morning Branch and 0.5 tablets in the evening. Patient takes half tablet twice daily losartan 50 2023-0 Yes [id number] 50mg Take 1 [facility] mg tablet 2-20 tablet by ity o f 00:00: mouth in [place] the morning. Branch metoprolol 2023-0 Yes [id number] 12.5mg Take 0.5 [facility] tartrate 25 2-20 tablets by it y of mg tablet 00:00: mouth in [facility] the morning Branch and 0.5 tablets in the evening. Patient takes half tablet twice daily losartan 50 3-0 Yes [id number] 50mg Take 1 [facility] mg tablet 2-20 tablet by ity o f 00:00: mouth in [place] the morning. Branch metoprolol 2023-0 Yes [id number] 12.5mg Take 0.5 [facility] tartrate 25 2-20 tablets by it y of mg tablet 00:00: mouth in [facility] the Branch and 0.5 tablets in the evening. Patient takes half tablet twice daily losartan 50 3-0 Yes [id number] 50mg Take 1 [facility] mg tablet 2-20 tablet by ity o f 00:00: mouth in [place] the morning. Branch metoprolol 2023-0 Yes [id number] 12.5mg Take 0.5 [facility] tartrate 25 2-20 tablets by it y of mg tablet 00:00: mouth in [facility] the morning Branch and 0.5 tablets in the evening. Patient takes half tablet twice daily losartan 50 3-0 Yes [id number] 50mg Take 1 [facility] mg tablet 2-20 tablet by ity o f 00:00: mouth in [place] the morning. Branch metoprolol 2023-0 Yes [id number] 12.5mg Take 0.5 [facility] tartrate 25 2-20 tablets by it y of mg tablet 00:00: mouth in [facility] the morning Branch and 0.5 tablets in the evening. Patient takes half tablet twice daily losartan 50 2023-0 Yes [id number] 50mg Take 1 [facility] mg tablet 2-20 tablet by ity o f 00:00: mouth in [place] the morning. Branch metoprolol 2023-0 Yes [id number] 12.5mg Take 0.5 [facility] tartrate 25 2-20 tablets by it y of mg tablet 00:00: mouth in [facility] the morning Branch and 0.5 tablets in the evening. Patient takes half tablet twice daily losartan 50 2023-0 Yes [id number] 50mg Take 1 [facility] mg tablet 2-20 tablet by ity o f 00:00: mouth in [place] the morning. Branch metoprolol 2023-0 Yes [id number] 12.5mg Take 0.5 [facility] tartrate 25 2-20 tablets by it y of mg tablet 00:00: mouth in [facility] the morning Branch and 0.5 tablets in the evening. Patient takes half tablet twice daily losartan 50 2023-0 Yes [id number] 50mg Take 1 [facility] mg tablet 2-20 tablet by ity o f 00:00: mouth in [place] the morning. Branch metoprolol 2023-0 Yes [id number] 12.5mg Take 0.5 [facility] tartrate 25 2-20 tablets by it y of mg tablet 00:00: mouth in [facility] the morning Branch and 0.5 tablets in the evening. Patient takes half tablet twice daily losartan 50 2023-0 Yes [id number] 50mg Take 1 [facility] mg tablet 2-20 tablet by ity o f 00:00: mouth in [place] the morning. Branch metoprolol 2023-0 Yes [id number] 12.5mg Take 0.5 [facility] tartrate 25 2-20 tablets by it y of mg tablet 00:00: mouth in [facility] the morning Branch and 0.5 tablets in the evening. Patient takes half tablet twice daily losartan 50 2023-0 Yes [id number] 50mg Take 1 [facility] mg tablet 2-20 tablet by ity o f 00:00: mouth in [place] the morning. Branch metoprolol 2023-0 Yes [id number] 12.5mg Take 0.5 [facility] tartrate 25 2-20 tablets by it y of mg tablet 00:00: mouth in [facility] the morning Branch and 0.5 tablets in the evening. Patient takes half tablet twice daily losartan 50 2023-0 Yes [id number] 50mg Take 1 [facility] mg tablet 2-20 tablet by ity o f 00:00: mouth in [place] the morning. Branch metoprolol 2023-0 Yes [id number] 12.5mg Take 0.5 [facility] tartrate 25 2-20 tablets by it y of mg tablet 00:00: mouth in [place] the Medical morning Branch and 0.5 tablets in the evening. Patient takes half tablet twice daily losartan 50 2023-0 Yes [id number] 50mg Take 1 [facility] mg tablet 2-20 tablet by ity o f 00:00: mouth in [place] the morning. Branch metoprolol 2023-0 Yes [id number] 12.5mg Take 0.5 [facility] tartrate 25 2-20 tablets by it y of mg tablet 00:00: mouth in [facility] the morning Branch and 0.5 tablets in the evening. Patient takes half tablet twice daily losartan 50 2023-0 Yes [id number] 50mg Take 1 [facility] mg tablet 2-20 tablet by ity o f 00:00: mouth in [place] the morning. Branch metoprolol 2023-0 Yes [id number] 12.5mg Take 0.5 [facility] tartrate 25 2-20 tablets by it y of mg tablet 00:00: mouth in [facility] the morning Branch and 0.5 tablets in the evening. Patient takes half tablet twice daily losartan 50 2023-0 Yes [id number] 50mg Take 1 [facility] mg tablet 2-20 tablet by ity o f 00:00: mouth in [place] the morning. Branch metoprolol 2023-0 Yes [id number] 12.5mg Take 0.5 [facility] tartrate 25 2-20 tablets by it y of mg tablet 00:00: mouth in [facility] the morning Branch and 0.5 tablets in the evening. Patient takes half tablet twice daily losartan 50 2023-0 Yes [id number] 50mg Take 1 [facility] mg tablet 2-20 tablet by ity o f 00:00: mouth in [place] the morning. Branch metoprolol 2023-0 Yes [id number] 12.5mg Take 0.5 [facility] tartrate 25 2-20 tablets by it y of mg tablet 00:00: mouth in [place] the Medical morning Branch and 0.5 tablets in the evening. Patient takes half tablet twice daily metoprolol 2023-0 Yes [id number] 12.5mg Take 0.5 [facility] tartrate 25 2-20 tablets by it y of mg tablet 00:00: mouth [place] 00 the Medical morning Branch and 0.5 tablets in the evening. Patient takes half tablet twice daily metoprolol 2022-0 Yes [id number] 12.5mg Take 0.5 [facility] tartrate 25 2-20 tablets by it y of mg tablet 00:00: mouth [place] 00 the Medical morning Branch and 0.5 tablets in the evening. Patient takes half tablet twice daily metoprolol 2022-0 Yes [id number] 12.5mg Take 0.5 [facility] tartrate 25 2-20 tablets by it y of mg tablet 00:00: mouth [place] 00 the Medical morning Branch and 0.5 tablets in the evening. Patient takes half tablet twice daily metoprolol 2022-0 Yes [id number] 12.5mg Take 0.5 [facility] tartrate 25 2-20 tablets by it y of mg tablet 00:00: mouth [place] 00 the Medical morning Branch and 0.5 tablets in the evening. Patient takes half tablet twice daily metoprolol 2022-0 Yes [id number] 12.5mg Take 0.5 [facility] tartrate 25 2-20 tablets by it y of mg tablet 00:00: mouth [place] 00 the Medical morning Branch and 0.5 tablets in the evening. Patient takes half tablet twice daily metoprolol 2022-0 2022- No [id number] 12.5mg Take 0.5 [facility] tartrate 25 2-20 07-19 tablets by i ty of mg tablet 00:00: 00:00 mouth in [place] 00 :00 the Medical morning Branch and 0.5 tablets in the evening. Patient takes half tablet twice daily metoprolol 2022-0 2022- No [id number] 12.5mg Take 0.5 [facility] tartrate 25 2-20 07-19 tablets by i ty of mg tablet 00:00: 00:00 mouth in [place] 00 :00 the Medical morning Branch and 0.5 tablets in the evening. Patient takes half tablet twice daily metoprolol 2022-0 2022- No [id number] 12.5mg Take 0.5 [facility] tartrate 25 2-20 07-19 tablets by i ty of mg tablet 00:00: 00:00 mouth in [place] 00 :00 the Medical morning Branch and 0.5 tablets in the evening. Patient takes half tablet twice daily metoprolol 2022- No [id number] 12.5mg Take 0.5 [facility] tartrate 25 2-20 - tablets by i ty of mg tablet 00:00: 00:00 mouth in [facility] as 00 :00 the [facility] Branch and 0.5 tablets in the evening. Patient takes half tablet twice daily losartan 50 2022- No [id number] 50mg Take 1 [facility] mg tablet 2-20 11-10 tablet by ity of 00:00: 00:00 mouth in [place] 00 :00 the [facility] Branch MONTELUKAST Yes [id number] 10mg TAKE 1 [facility] 10 mg 2-14 TABLET BY ity of tablet 00:00: MOUTH IN [place] 00 THE [facility] MONTELUKAST Yes [id number] 10mg TAKE 1 [facility] 10 mg 2-14 TABLET BY ity of tablet 00:00: MOUTH IN [place] 00 THE [facility] MONTELUKAST Yes [id number] 10mg TAKE 1 [facility] 10 mg 2-14 TABLET BY ity of tablet 00:00: MOUTH IN [place] 00 THE [facility] MONTELUKAST Yes [id number] 10mg TAKE 1 [facility] 10 mg 2-14 TABLET BY ity of tablet 00:00: MOUTH IN [place] 00 THE [facility] MONTELUKAST Yes [id number] 10mg TAKE 1 [facility] 10 mg 2-14 TABLET BY ity of tablet 00:00: MOUTH IN [place] 00 THE [facility] MONTELUKAST Yes [id number] 10mg TAKE 1 [facility] 10 mg 2-14 TABLET BY ity of tablet 00:00: MOUTH IN [place] 00 THE [facility] MONTELUKAST Yes [id number] 10mg TAKE 1 [facility] 10 mg 2-14 TABLET BY ity of tablet 00:00: MOUTH IN [place] 00 THE [facility] MONTELUKAST Yes [id number] 10mg TAKE 1 [facility] 10 mg 2-14 TABLET BY ity of tablet 00:00: MOUTH IN [place] 00 THE [facility] MONTELUKAST Yes [id number] 10mg TAKE 1 [facility] 10 mg 2-14 TABLET BY ity of tablet 00:00: MOUTH IN [place] 00 THE [facility] MONTELUKAST Yes [id number] 10mg TAKE 1 [facility] 10 mg 2-14 TABLET BY ity of tablet 00:00: MOUTH IN [place] 00 THE Medical MORNING Branch MONTELUKAST 0 Yes [id number] 10mg TAKE 1 [facility] 10 mg 2-14 TABLET BY ity of tablet 00:00: MOUTH IN [place] 00 THE Medical MORNING Branch MONTELUKAST 0 Yes [id number] 10mg TAKE 1 [facility] 10 mg 2-14 TABLET BY ity of tablet 00:00: MOUTH IN [place] 00 THE Medical MORNING Branch MONTELUKAST 0 Yes [id number] 10mg TAKE 1 [facility] 10 mg 2-14 TABLET BY ity of tablet 00:00: MOUTH IN [place] 00 THE Medical MORNING Branch MONTELUKAST Yes [id number] 10mg TAKE 1 [facility] 10 mg 2-14 TABLET BY ity of tablet 00:00: MOUTH IN [place] 00 THE Medical MORNING Branch MONTELUKAST 0 Yes [id number] 10mg TAKE 1 [facility] 10 mg 2-14 TABLET BY ity of tablet 00:00: MOUTH IN [place] 00 THE [facility] MORNING Branch MONTELUKAST 0 Yes [id number] 10mg TAKE 1 [facility] 10 mg 2-14 TABLET BY ity of tablet 00:00: MOUTH IN [place] 00 THE [facility] MORNING Branch MONTELUKAST Yes [id number] 10mg TAKE 1 [facility] 10 mg 2-14 TABLET BY ity of tablet 00:00: MOUTH IN [place] 00 THE Medical MORNING Branch MONTELUKAST 0 Yes [id number] 10mg TAKE 1 [facility] 10 mg 2-14 TABLET BY ity of tablet 00:00: MOUTH IN [place] 00 THE Medical MORNING Branch MONTELUKAST 0 Yes [id number] 10mg TAKE 1 [facility] 10 mg 2-14 TABLET BY ity of tablet 00:00: MOUTH IN [place] 00 THE [facility] MORNING Branch MONTELUKAST 0 2022- No [id number] 10mg TAKE 1 [facility] 10 mg 2-14 10-12 TABLET BY ity of tablet 00:00: 00:00 MOUTH IN [place] 00 :00 THE [facility] MORNING Branch metFORMIN 2021- Yes [id number] 1000mg Take 1 [facility] 1,000 mg 2-12 tablet by ity of tablet 00:00: mouth in [place] 00 the Medical morning Branch and 1 tablet in the evening. Take with meals. Omeprazole 2021- Yes [id number] 20mg Take 1 [facility] 20 mg 2-12 tablet by ity of tablet 00:00: mouth in [place] the morning. Branch metFORMIN 2021- Yes [id number] 1000mg Take 1 [facility] 1,000 mg 2-12 tablet by ity of tablet 00:00: mouth in [place] the morning Branch and 1 tablet in the evening. Take with meals. Omeprazole 2021- Yes [id number] 20mg Take 1 [facility] 20 mg 2-12 tablet by ity of tablet 00:00: mouth in [place] the morning. Branch metFORMIN 2021- Yes [id number] 1000mg Take 1 [facility] 1,000 mg 2-12 tablet by ity of tablet 00:00: mouth in [place] the Branch and 1 tablet in the evening. Take with meals. Omeprazole 2021- Yes [id number] 20mg Take 1 [facility] 20 mg 2-12 tablet by ity of tablet 00:00: mouth in [place] the morning. Branch metFORMIN 2021- Yes [id number] 1000mg Take 1 [facility] 1,000 mg 2-12 tablet by ity of tablet 00:00: mouth in [place] the Branch and 1 tablet in the evening. Take with meals. Omeprazole 2021- Yes [id number] 20mg Take 1 [facility] 20 mg 2-12 tablet by ity of tablet 00:00: mouth in [place] the morning. Branch metFORMIN 2021- Yes [id number] 1000mg Take 1 [facility] 1,000 mg 2-12 tablet by ity of tablet 00:00: mouth in [place] the Branch and 1 tablet in the evening. Take with meals. Omeprazole 2021- Yes [id number] 20mg Take 1 [facility] 20 mg 2-12 tablet by ity of tablet 00:00: mouth in [place] the morning. Branch metFORMIN 2021- Yes [id number] 1000mg Take 1 [facility] 1,000 mg 2-12 tablet by ity of tablet 00:00: mouth in [place] the morning Branch and 1 tablet in the evening. Take with meals. Omeprazole 2021- Yes [id number] 20mg Take 1 [facility] 20 mg 2-12 tablet by ity of tablet 00:00: mouth in [place] the morning. Branch metFORMIN 2021- Yes [id number] 1000mg Take 1 [facility] 1,000 mg 2-12 tablet by ity of tablet 00:00: mouth in [place] the Branch and 1 tablet in the evening. Take with meals. Omeprazole 2021- Yes [id number] 20mg Take 1 [facility] 20 mg 2-12 tablet by ity of tablet 00:00: mouth in [place] the morning. Branch metFORMIN 2021- Yes [id number] 1000mg Take 1 [facility] 1,000 mg 2-12 tablet by ity of tablet 00:00: mouth in [place] the Branch and 1 tablet in the evening. Take with meals. Omeprazole 2021- Yes [id number] 20mg Take 1 [facility] 20 mg 2-12 tablet by ity of tablet 00:00: mouth in [place] the . Branch metFORMIN 2021- Yes [id number] 1000mg Take 1 [facility] 1,000 mg 2-12 tablet by ity of tablet 00:00: mouth in [place] [address] the [place] and 1 tablet in the evening. Take with meals. Omeprazole 2021- Yes [id number] 20mg Take 1 [facility] 20 mg 2-12 tablet by ity of tablet 00:00: mouth in [place] the . Branch metFORMIN 2021- Yes [id number] 1000mg Take 1 [facility] 1,000 mg 2-12 tablet by ity of tablet 00:00: mouth in [place] [address] the [place] and 1 tablet in the evening. Take with meals. Omeprazole 2021- Yes [id number] 20mg Take 1 [facility] 20 mg 2-12 tablet by ity of tablet 00:00: mouth in [place] the . Branch metFORMIN 2021- Yes [id number] 1000mg Take 1 [facility] 1,000 mg 2-12 tablet by ity of tablet 00:00: mouth in [place] [address] the [facility] Branch and 1 tablet in the evening. Take with meals. Omeprazole 2021-1 Yes [id number] 20mg Take 1 [facility] 20 mg 2-12 tablet by ity of tablet 00:00: mouth in [place] the morning. Branch metFORMIN 2021- Yes [id number] 1000mg Take 1 [facility] 1,000 mg 2-12 tablet by ity of tablet 00:00: mouth in [place] [address] the morning [place] and 1 tablet in the evening. Take with meals. Omeprazole 2021-1 Yes [id number] 20mg Take 1 [facility] 20 mg 2-12 tablet by ity of tablet 00:00: mouth in [place] the Medical morning. Branch metFORMIN 2021-1 Yes [id number] 1000mg Take 1 [facility] 1,000 mg 2-12 tablet by ity of tablet 00:00: mouth in [place] the morning Branch and 1 tablet in the evening. Take with meals. Omeprazole 2021-1 Yes [id number] 20mg Take 1 [facility] 20 mg 2-12 tablet by ity of tablet 00:00: mouth in [place] the morning. Branch metFORMIN 2021-1 Yes [id number] 1000mg Take 1 [facility] 1,000 mg 2-12 tablet by ity of tablet 00:00: mouth in [place] the morning Branch and 1 tablet in the evening. Take with meals. Omeprazole 2021-1 Yes [id number] 20mg Take 1 [facility] 20 mg 2-12 tablet by ity of tablet 00:00: mouth in [place] the morning. Branch metFORMIN 2021-1 Yes [id number] 1000mg Take 1 [facility] 1,000 mg 2-12 tablet by ity of tablet 00:00: mouth in [place] the morning Branch and 1 tablet in the evening. Take with meals. Omeprazole 2021-1 Yes [id number] 20mg Take 1 [facility] 20 mg 2-12 tablet by ity of tablet 00:00: mouth in [place] the morning. Branch Omeprazole 2021-1 Yes [id number] 20mg Take 1 [facility] 20 mg 2-12 tablet by ity of tablet 00:00: mouth in [place] the morning. Branch Omeprazole 2021-1 Yes [id number] 20mg Take 1 [facility] 20 mg 2-12 tablet by ity of tablet 00:00: mouth in [place] the morning. Branch Omeprazole 2021-1 Yes [id number] 20mg Take 1 [facility] 20 mg 2-12 tablet by ity of tablet 00:00: mouth in [place] the morning. Branch Omeprazole 2021-1 Yes [id number] 20mg Take 1 [facility] 20 mg 2-12 tablet by ity of tablet 00:00: mouth in [place] the Medical morning. Branch Omeprazole 2021-1 Yes [id number] 20mg Take 1 [facility] 20 mg 2-12 tablet by ity of tablet 00:00: mouth in [place] the Medical morning. Branch Omeprazole 2-1 Yes [id number] 20mg Take 1 [facility] 20 mg 2-12 tablet by ity of tablet 00:00: mouth in [place] the Medical morning. Branch Omeprazole 2-1 Yes [id number] 20mg Take 1 [facility] 20 mg 2-12 tablet by ity of tablet 00:00: mouth in [place] the Medical morning. Branch Omeprazole 2021-1 Yes [id number] 20mg Take 1 [facility] 20 mg 2-12 tablet by ity of tablet 00:00: mouth in [place] the Medical morning. Branch Omeprazole 2021-1 Yes [id number] 20mg Take 1 [facility] 20 mg 2-12 tablet by ity of tablet 00:00: mouth in [place] the Medical morning. Branch Omeprazole 2021-1 Yes [id number] 20mg Take 1 [facility] 20 mg 2-12 tablet by ity of tablet 00:00: mouth in [place] the Medical morning. Branch Omeprazole 2021-1 Yes [id number] 20mg Take 1 [facility] 20 mg 2-12 tablet by ity of tablet 00:00: mouth in [place] the Medical morning. Branch Omeprazole 2021-1 Yes [id number] 20mg Take 1 [facility] 20 mg 2-12 tablet by ity of tablet 00:00: mouth in [place] the Medical morning. Branch Omeprazole 2021-1 Yes [id number] 20mg Take 1 [facility] 20 mg 2-12 tablet by it[facility] of tablet 00:00: mouth in [place] the Medical morning. Branch Omeprazole 2-1 Yes [id number] 20mg Take 1 [facility] 20 mg 2-12 tablet by ity of tablet 00:00: mouth in [place] the Medical morning. Branch Omeprazole 2-1 Yes [id number] 20mg Take 1 [facility] 20 mg 2-12 tablet by ity of tablet 00:00: mouth in [place] the Medical morning. Branch Omeprazole 2-1 Yes [id number] 20mg Take 1 [facility] 20 mg 2-12 tablet by ity of tablet 00:00: mouth in [place] the Medical morning. Branch Omeprazole 2-1 Yes [id number] 20mg Take 1 [facility] 20 mg 2-12 tablet by ity of tablet 00:00: mouth in [place] the Medical morning. Branch Omeprazole 2-1 Yes [id number] 20mg Take 1 [facility] 20 mg 2-12 tablet by ity of tablet 00:00: mouth in [place] [address] the morning. Branch Omeprazole 2021-05 Yes [id number] 20mg Take 1 [facility] 20 mg 2-12 tablet by ity of tablet 00:00: mouth in [place] [address] the morning. Branch metFORMIN 2021-05 2023- No [id number] 1000mg Take 1 [facility] 1,000 mg 2-12 04-26 tablet by ity o f tablet 00:00: 00:00 mouth in [place] 00 :00 the morning Branch and 1 tablet in the evening. Take with meals. apixaban 2021-05 Yes [id number] 5mg Take 1 [facility] (ELIQUIS) 5 1-25 tablet by ity of mg tablet 00:00: mouth in [place] [address] the [facility] morning Branch and 1 tablet in the evening. Indication s: atrial fibrillati on apixaban 2021-05 Yes 1358 5mg Take 1 [facility] (ELIQUIS) 5 1-25 tablet by ity of mg tablet 00:00: mouth in [address] and 1 tablet in the evening. Indication s: atrial fibrillati on apixaban 2021-05 Yes 1358 5mg Take 1 [facility] (ELIQUIS) 5 1-25 tablet by ity of mg tablet 00:00: mouth in [place] [address] the [facility] Branch and 1 tablet in the evening. Indication s: atrial fibrillati on apixaban 2021-05 Yes 1358 5mg Take 1 [facility] (ELIQUIS) 5 1-25 tablet by ity of mg tablet 00:00: mouth in [place] [address] the [facility] and 1 tablet in the evening. Indication s: atrial fibrillati on apixaban 2021-05 Yes 1358 5mg Take 1 [facility] (ELIQUIS) 5 1-25 tablet by ity of mg tablet 00:00: mouth in [place] [address] the [facility] morning Branch and 1 tablet in the evening. Indication s: atrial fibrillati on apixaban 2021-05 Yes 1358 5mg Take 1 [facility] (ELIQUIS) 5 1-25 tablet by ity of mg tablet 00:00: mouth in [address] morning Branch and 1 tablet in [...] Take [address] [facility] (ELIQUIS) 5 06-06 tablet (5 [facility] mg Tab 00:00: 00:00 mg total) Medic al tablet 00 :00 by mouth Center daily. apixaban 2021-05- No 5mg QD Take [address] [facility] (ELIQUIS) 5 06-06 tablet (5 [facility] mg Tab 00:00: 00:00 mg total) Medic al tablet 00 :00 by mouth Center daily. apixaban 2021-05- No 5mg QD Take [address] [facility] (ELIQUIS) 5 06-06 tablet (5 [facility] mg Tab 00:00: 00:00 mg total) Medic al tablet 00 :00 by mouth Center daily. apixaban 2021-05- No 5mg QD Take [address] [facility] (ELIQUIS) 5 06-06 tablet (5 [facility] mg Tab 00:00: [...] mouth ity o f 14:08: 00:00 daily. [place] 17 : [facility] losartan 25 2021-05- No 25mg Take 25 mg [facility] mg tablet 06-03 by mouth ity o f 14:08: 00:00 daily. [place] 17 : [facility] losartan 25 2021-05- No 25mg Take 25 mg [facility] mg tablet 06-03 by mouth ity o f 14:08: 00:00 daily. [place] 17 : [facility] losartan 25 2021-05- No 25mg Take 25 mg [facility] mg tablet 06-03 by mouth ity o f 14:08: 00:00 daily. [place] : [facility] Branch metoprolol 2021-05 Yes 25mg Take 25 mg U nivers tartrate 25 1-22 by mouth ity of mg tablet 13:45: in the [place] [address] morning Medical and 25 mg Branch in the evening. Patient takes half tablet twice daily metoprolol 2021-05 Yes 25mg Take 25 mg U nivers tartrate 25 1-22 by mouth ity of mg tablet 13:45: in the [place] [address] morning Medical and 25 mg Branch in the evening. Patient takes half tablet twice daily metoprolol 2021-05 Yes 25mg Take 25 mg U nivers tartrate 25 1-22 by mouth ity of mg tablet 13:45: in the [place] [address] morning Medical and 25 mg Branch in the evening. Patient takes half tablet twice daily metoprolol 2021-05 Yes 25mg Take 25 mg U nivers tartrate 25 1-22 by mouth ity of mg tablet 13:45: in the [place] [address] morning Medical and 25 mg Branch in the evening. Patient takes half tablet twice daily metoprolol 2021-05 Yes 25mg Take 25 mg U nivers tartrate 25 1-22 by mouth ity of mg tablet 13:45: in the [place] [address] morning Medical and 25 mg Branch in the evening. Patient takes half tablet twice daily metoprolol 2021-05 Yes 25mg Take 25 mg U nivers tartrate 25 1-22 by mouth ity of mg tablet 13:45: in the [place] [address] morning Medical and 25 mg Branch in the evening. Patient takes half tablet twice daily metoprolol 2021- Yes 25mg Take 25 mg U nivers tartrate 25 1-22 by mouth ity of mg tablet 13:45: in the [place] [address] morning Medical and 25 mg Branch in the evening. Patient takes half tablet twice daily metoprolol 2021-1 Yes 25mg Take 25 mg U nivers tartrate 25 1-22 by mouth ity of mg tablet 13:45: in the [place] [address] morning Medical and 25 mg Branch in the evening. Patient takes half tablet twice daily metoprolol 2021-1 Yes 25mg Take 25 mg U nivers tartrate 25 1-22 by mouth ity of mg tablet 13:45: in the [place] [address] morning Medical and 25 mg Branch in the evening. Patient takes half tablet twice daily metoprolol 2021- Yes 25mg Take 25 mg U nivers tartrate 25 1-22 by mouth ity of mg tablet 13:45: in the [place] [address] morning Medical and 25 mg Branch in the evening. Patient takes half tablet twice daily metoprolol 2021- Yes 25mg Take 25 mg U nivers tartrate 25 1-22 by mouth ity of mg tablet 13:45: in the [place] [address] morning Medical and 25 mg Branch in the evening. Patient takes half tablet twice daily metoprolol 2021- Yes 25mg Take 25 mg U nivers tartrate 25 1-22 by mouth ity of mg tablet 13:45: in the [place] [address] morning Medical and 25 mg Branch in the evening. Patient takes half tablet twice daily metoprolol 2021- Yes 25mg Take 25 mg U nivers tartrate 25 1-22 by mouth ity of mg tablet 13:45: in the [place] [address] morning Medical and 25 mg Branch in the evening. Patient takes half tablet twice daily metoprolol 2021- Yes 25mg Take 25 mg U nivers tartrate 25 1-22 by mouth ity of mg tablet 13:45: in the [place] [address] morning Medical and 25 mg Branch in the evening. Patient takes half tablet twice daily metoprolol 2021- Yes 25mg Take 25 mg U nivers tartrate 25 1-22 by mouth ity of mg tablet 13:45: in the [place] [address] morning Medical and 25 mg Branch in the evening. Patient takes half tablet twice daily metoprolol 2021-1 Yes 25mg Take 25 mg U nivers tartrate 25 1-22 by mouth ity of mg tablet 13:45: in the [place] [address] morning Medical and 25 mg Branch in the evening. Patient takes half tablet twice daily metoprolol 2021-05 Yes 25mg Take 25 mg U nivers tartrate 25 1-22 by mouth ity of mg tablet 13:45: in the [place] [address] morning Medical and 25 mg Branch in the evening. Patient takes half tablet twice daily albuterol 2021-05 Yes [id number] 2{puff} Inhale 2 [facility] (PROAIR 1-22 Puffs ity of HFA) 90 00:00: every 6 [place] mcg/actuati 00 (six) Medical on inhaler hours as Branc h needed for Wheezing, Shortness of Breath or Chest tightness. losartan 2021-05 Yes [id number] 100mg Take 1 [facility] [place] 100 mg 1-22 tablet by ity of tablet 00:00: mouth in [place] 00 the Medical morning. Branch losartan 2021-05 Yes [id number] 100mg Take 1 [facility] [place] 100 mg 1-22 tablet by ity of tablet 00:00: mouth in [place] 00 the Medical morning. Branch albuterol 2021-05 Yes [id number] 2{puff} Inhale 2 [facility] (PROAIR 1-22 Puffs ity of HFA) 90 00:00: every 6 [place] mcg/actuati 00 (six) Medical on inhaler hours as Branc h needed for Wheezing, Shortness of Breath or Chest tightness. albuterol 2021-05 Yes [id number] 2{puff} Inhale 2 [facility] (PROAIR 1-22 Puffs ity of HFA) 90 00:00: every 6 [place] mcg/actuati 00 (six) Medical on inhaler hours as Branc h needed for Wheezing, Shortness of Breath or Chest tightness. losartan 2021-05 Yes [id number] 100mg Take 1 [facility] [place] 100 mg 1-22 tablet by ity of tablet 00:00: mouth in [place] 00 the Medical morning. Branch albuterol 2021-05 Yes [id number] 2{puff} Inhale 2 [facility] (PROAIR 1-22 Puffs ity of HFA) 90 00:00: every 6 [place] mcg/actuati 00 (six) Medical on inhaler hours as Branc h needed for Wheezing, Shortness of Breath or Chest tightness. losartan 2021-05 Yes [id number] 100mg Take 1 [facility] [place] 100 mg 1-22 tablet by ity of tablet 00:00: mouth in [place] 00 the Medical morning. Branch albuterol 2021-05 Yes [id number] 2{puff} Inhale 2 [facility] (PROAIR 1-22 Puffs ity of HFA) 90 00:00: every 6 [place] mcg/actuati 00 (six) Medical on inhaler hours as Branc h needed for Wheezing, Shortness of Breath or Chest tightness. losartan 2021-05 Yes [id number] 100mg Take 1 [facility] [place] 100 mg 1-22 tablet by ity of tablet 00:00: mouth in [place] 00 the Medical morning. Branch albuterol 2021-05 Yes [id number] 2{puff} Inhale 2 [facility] (PROAIR 1-22 Puffs ity of HFA) 90 00:00: every 6 [place] mcg/actuati 00 (six) Medical on inhaler hours as Branc h needed for Wheezing, Shortness of Breath or Chest tightness. losartan 2021-05 Yes [id number] 100mg Take 1 [facility] [place] 100 mg 1-22 tablet by ity of tablet 00:00: mouth in [place] 00 the Medical morning. Branch albuterol 2021-05 Yes [id number] 2{puff} Inhale 2 [facility] (PROAIR 1-22 Puffs ity of HFA) 90 00:00: every 6 [place] mcg/actuati 00 (six) Medical on inhaler hours as Branc h needed for Wheezing, Shortness of Breath or Chest tightness. losartan 2021-05 Yes [id number] 100mg Take 1 [facility] [place] 100 mg 1-22 tablet by ity of tablet 00:00: mouth in [place] 00 the Medical morning. Branch albuterol 2021-05 Yes [id number] 2{puff} Inhale 2 [facility] (PROAIR 1-22 Puffs ity of HFA) 90 00:00: every 6 [place] mcg/actuati 00 (six) Medical on inhaler hours as Branc h needed for Wheezing, Shortness of Breath or Chest tightness. losartan 2021-05 Yes [id number] 100mg Take 1 [facility] [place] 100 mg 1-22 tablet by ity of tablet 00:00: mouth in [place] 00 the Medical morning. Branch albuterol 2021-05 Yes [id number] 2{puff} Inhale 2 [facility] (PROAIR 1-22 Puffs ity of HFA) 90 00:00: every 6 [place] mcg/actuati 00 (six) Medical on inhaler hours as Branc h needed for Wheezing, Shortness of Breath or Chest tightness. losartan 2021-05 Yes [id number] 100mg Take 1 [facility] [place] 100 mg 1-22 tablet by ity of tablet 00:00: mouth in [place] 00 the Medical morning. Branch albuterol 2021-05 Yes [id number] 2{puff} Inhale 2 [facility] (PROAIR 1-22 Puffs ity of HFA) 90 00:00: every 6 [place] mcg/actuati 00 (six) Medical on inhaler hours as Branc h needed for Wheezing, Shortness of Breath or Chest tightness. losartan 2021-05 Yes [id number] 100mg Take 1 [facility] [place] 100 mg 1-22 tablet by ity of tablet 00:00: mouth in [place] 00 the Medical morning. Branch losartan 2021-05 Yes [id number] 100mg Take 1 [facility] [place] 100 mg 1-22 tablet by ity of tablet 00:00: mouth in [place] 00 the Medical morning. Branch albuterol 2021-05 Yes [id number] 2{puff} Inhale 2 [facility] (PROAIR 1-22 Puffs ity of HFA) 90 00:00: every 6 [place] mcg/actuati 00 (six) Medical on inhaler hours as Branc h needed for Wheezing, Shortness of Breath or Chest tightness. losartan 2021-05 Yes [id number] 100mg Take 1 [facility] [place] 100 mg 1-22 tablet by ity of tablet 00:00: mouth in [place] 00 the Medical morning. Branch albuterol 2021-05 Yes [id number] 2{puff} Inhale 2 [facility] (PROAIR 1-22 Puffs ity of HFA) 90 00:00: every 6 [place] mcg/actuati 00 (six) Medical on inhaler hours as Branc h needed for Wheezing, Shortness of Breath or Chest tightness. losartan 2021-05 Yes [id number] 100mg Take 1 [facility] [place] 100 mg 1-22 tablet by ity of tablet 00:00: mouth in [place] 00 the Medical morning. Branch albuterol 2021-05 Yes [id number] 2{puff} Inhale 2 [facility] (PROAIR 1-22 Puffs ity of HFA) 90 00:00: every 6 [place] mcg/actuati 00 (six) Medical on inhaler hours as Branc h needed for Wheezing, Shortness of Breath or Chest tightness. losartan 2021-05 Yes [id number] 100mg Take 1 [facility] [place] 100 mg 1-22 tablet by ity of tablet 00:00: mouth in [place] 00 the Medical morning. Branch albuterol 2021-05 Yes [id number] 2{puff} Inhale 2 [facility] (PROAIR 1-22 Puffs ity of HFA) 90 00:00: every 6 [place] mcg/actuati 00 (six) Medical on inhaler hours as Branc h needed for Wheezing, Shortness of Breath or Chest tightness. losartan 2021-05 Yes [id number] 100mg Take 1 [facility] [place] 100 mg 1-22 tablet by ity of tablet 00:00: mouth in [place] 00 the Medical morning. Branch albuterol 2021-05 Yes [id number] 2{puff} Inhale 2 [facility] (PROAIR 1-22 Puffs ity of HFA) 90 00:00: every 6 [place] mcg/actuati 00 (six) Medical on inhaler hours as Branc h needed for Wheezing, Shortness of Breath or Chest tightness. losartan 2021-05 Yes [id number] 100mg Take 1 [facility] [place] 100 mg 1-22 tablet by ity of tablet 00:00: mouth in [place] 00 the Medical morning. Branch albuterol 2021-05 Yes [id number] 2{puff} Inhale 2 [facility] (PROAIR 1-22 Puffs ity of HFA) 90 00:00: every 6 [place] mcg/actuati 00 (six) Medical on inhaler hours as Branc h needed for Wheezing, Shortness of Breath or Chest tightness. losartan 2021-05 Yes [id number] 100mg Take 1 [facility] [place] 100 mg 1-22 tablet by ity of tablet 00:00: mouth in [place] 00 the Medical morning. Branch albuterol 2021-05 Yes [id number] 2{puff} Inhale 2 [facility] (PROAIR 1-22 Puffs ity of HFA) 90 00:00: every 6 [place] mcg/actuati 00 (six) Medical on inhaler hours as Branc h needed for Wheezing, Shortness of Breath or Chest tightness. losartan 2021-05 Yes [id number] 100mg Take 1 [facility] [place] 100 mg 1-22 tablet by ity of tablet 00:00: mouth in [place] 00 the Medical morning. Branch albuterol 2021-05 Yes [id number] 2{puff} Inhale 2 [facility] (PROAIR 1-22 Puffs ity of HFA) 90 00:00: every 6 [place] mcg/actuati 00 (six) Medical on inhaler hours as Branc h needed for Wheezing, Shortness of Breath or Chest tightness. losartan 2021-05 Yes [id number] 100mg Take 1 [facility] [place] 100 mg 1-22 tablet by ity of tablet 00:00: mouth in [place] 00 the Medical morning. Branch albuterol 2021-05 Yes [id number] 2{puff} Inhale 2 [facility] (PROAIR 1-22 Puffs ity of HFA) 90 00:00: every 6 [place] mcg/actuati 00 (six) Medical on inhaler hours as Branc h needed for Wheezing, Shortness of Breath or Chest tightness. losartan 2021-05 Yes [id number] 100mg Take 1 [facility] [place] 100 mg 1-22 tablet by ity of tablet 00:00: mouth in [place] 00 the Medical morning. Branch albuterol 2021-05 Yes [id number] 2{puff} Inhale 2 [facility] (PROAIR 1-22 Puffs ity of HFA) 90 00:00: every 6 [place] mcg/actuati 00 (six) Medical on inhaler hours as Branc h needed for Wheezing, Shortness of Breath or Chest tightness. losartan 2021-05 Yes [id number] 100mg Take 1 [facility] [place] 100 mg 1-22 tablet by ity of tablet 00:00: mouth in [place] 00 the Medical morning. Branch albuterol 2021-05 Yes [id number] 2{puff} Inhale 2 [facility] (PROAIR 1-22 Puffs ity of HFA) 90 00:00: every 6 [place] mcg/actuati 00 (six) Medical on inhaler hours as Branc h needed for Wheezing, Shortness of Breath or Chest tightness. losartan 2021-05 Yes [id number] 100mg Take 1 [facility] [place] 100 mg 1-22 tablet by ity of tablet 00:00: mouth in [place] 00 the Medical morning. Branch albuterol 2021-05 Yes [id number] 2{puff} Inhale 2 [facility] (PROAIR 1-22 Puffs ity of HFA) 90 00:00: every 6 [place] mcg/actuati 00 (six) Medical on inhaler hours as Branc h needed for Wheezing, Shortness of Breath or Chest tightness. losartan 2021-05 Yes [id number] 100mg Take 1 [facility] [place] 100 mg 1-22 tablet by ity of tablet 00:00: mouth in [place] 00 the Medical morning. Branch albuterol 2021-05 Yes [id number] 2{puff} Inhale 2 [facility] (PROAIR 1-22 Puffs ity of HFA) 90 00:00: every 6 [place] mcg/actuati 00 (six) Medical on inhaler hours as Branc h needed for Wheezing, Shortness of Breath or Chest tightness. losartan 2021-05 Yes [id number] 100mg Take 1 [facility] [place] 100 mg 1-22 tablet by ity of tablet 00:00: mouth in [place] 00 the Medical morning. Branch albuterol 2021-05 Yes [id number] 2{puff} Inhale 2 [facility] (PROAIR 1-22 Puffs ity of HFA) 90 00:00: every 6 [place] mcg/actuati 00 (six) Medical on inhaler hours as Branc h needed for Wheezing, Shortness of Breath or Chest tightness. losartan 2021-05 Yes [id number] 100mg Take 1 [facility] [place] 100 mg 1-22 tablet by ity of tablet 00:00: mouth in [place] 00 the Medical morning. Branch albuterol 2021-05 Yes [id number] 2{puff} Inhale 2 [facility] (PROAIR 1-22 Puffs ity of HFA) 90 00:00: every 6 [place] mcg/actuati 00 (six) Medical on inhaler hours as Branc h needed for Wheezing, Shortness of Breath or Chest tightness. losartan 2021-05 Yes [id number] 100mg Take 1 [facility] [place] 100 mg 1-22 tablet by ity of tablet 00:00: mouth in [place] 00 the Medical morning. Branch albuterol 2021-05 Yes [id number] 2{puff} Inhale 2 [facility] (PROAIR 1-22 Puffs ity of HFA) 90 00:00: every 6 [place] mcg/actuati 00 (six) Medical on inhaler hours as Branc h needed for Wheezing, Shortness of Breath or Chest tightness. losartan 2021-05 Yes [id number] 100mg Take 1 [facility] [place] 100 mg 1-22 tablet by ity of tablet 00:00: mouth in [place] 00 the Medical morning. Branch albuterol 2021-05 Yes [id number] 2{puff} Inhale 2 [facility] (PROAIR 1-22 Puffs ity of HFA) 90 00:00: every 6 [place] mcg/actuati 00 (six) Medical on inhaler hours as Branc h needed for Wheezing, Shortness of Breath or Chest tightness. losartan 2021-05 Yes [id number] 100mg Take 1 [facility] [place] 100 mg 1-22 tablet by ity of tablet 00:00: mouth in [place] 00 the Medical morning. Branch albuterol 2021-05 Yes [id number] 2{puff} Inhale 2 [facility] (PROAIR 1-22 Puffs ity of HFA) 90 00:00: every 6 [place] mcg/actuati 00 (six) Medical on inhaler hours as Branc h needed for Wheezing, Shortness of Breath or Chest tightness. losartan 2021-05 Yes [id number] 100mg Take 1 [facility] [place] 100 mg 1-22 tablet by ity of tablet 00:00: mouth in [place] 00 the Medical morning. Branch albuterol 2021-05 Yes [id number] 2{puff} Inhale 2 [facility] (PROAIR 1-22 Puffs ity of HFA) 90 00:00: every 6 [place] mcg/actuati 00 (six) Medical on inhaler hours as Branc h needed for Wheezing, Shortness of Breath or Chest tightness. losartan 2021-05 Yes [id number] 100mg Take 1 [facility] [place] 100 mg 1-22 tablet by ity of tablet 00:00: mouth in [place] 00 the Medical morning. Branch albuterol 2021-05 Yes [id number] 2{puff} Inhale 2 [facility] (PROAIR 1-22 Puffs ity of HFA) 90 00:00: every 6 [place] mcg/actuati 00 (six) Medical on inhaler hours as Branc h needed for Wheezing, Shortness of Breath or Chest tightness. losartan 2021-05 Yes [id number] 100mg Take 1 [facility] [place] 100 mg 1-22 tablet by ity of tablet 00:00: mouth in [place] 00 the Medical morning. Branch albuterol 2021-05 Yes [id number] 2{puff} Inhale 2 [facility] (PROAIR 1-22 Puffs ity of HFA) 90 00:00: every 6 [place] mcg/actuati 00 (six) Medical on inhaler hours as Branc h needed for Wheezing, Shortness of Breath or Chest tightness. losartan 2021-05 Yes [id number] 100mg Take 1 [facility] [place] 100 mg 1-22 tablet by ity of tablet 00:00: mouth in [place] 00 the Medical morning. Branch albuterol 2021-05 Yes [id number] 2{puff} Inhale 2 [facility] (PROAIR 1-22 Puffs ity of HFA) 90 00:00: every 6 [place] mcg/actuati 00 (six) Medical on inhaler hours as Branc h needed for Wheezing, Shortness of Breath or Chest tightness. losartan 2021-05 Yes [id number] 100mg Take 1 [facility] [place] 100 mg 1-22 tablet by ity of tablet 00:00: mouth in [place] 00 the Medical morning. Branch albuterol 2021-05 Yes [id number] 2{puff} Inhale 2 [facility] (PROAIR 1-22 Puffs ity of HFA) 90 00:00: every 6 [place] mcg/actuati 00 (six) Medical on inhaler hours as Branc h needed for Wheezing, Shortness of Breath or Chest tightness. losartan 2021-05 Yes [id number] 100mg Take 1 [place] 100 mg 1-22 tablet by ity of tablet 00:00: mouth in [place] 00 the Medical morning. Branch albuterol 2021-05 Yes [id number] 2{puff} Inhale 2 [facility] (PROAIR 1-22 Puffs ity of HFA) 90 00:00: every 6 [place] mcg/actuati 00 (six) Medical on inhaler hours as Branc h needed for Wheezing, Shortness of Breath or Chest tightness. losartan 2021-05 Yes [id number] 100mg Take 1 [place] 100 mg 1-22 tablet by ity of tablet 00:00: mouth in [place] 00 the Medical morning. Branch albuterol 2021-05 Yes [id number] 2{puff} Inhale 2 [facility] (PROAIR 1-22 Puffs ity of HFA) 90 00:00: every 6 [place] mcg/actuati 00 (six) Medical on inhaler hours as Branc h needed for Wheezing, Shortness of Breath or Chest tightness. losartan 2021-05 Yes [id number] 100mg Take 1 [facility] [place] 100 mg 1-22 tablet by ity of tablet 00:00: mouth in [place] 00 the Medical morning. Branch albuterol 2021-05 Yes [id number] 2{puff} Inhale 2 [facility] (PROAIR 1-22 Puffs ity of HFA) 90 00:00: every 6 [place] mcg/actuati 00 (six) Medical on inhaler hours as Branc h needed for Wheezing, Shortness of Breath or Chest tightness. losartan 2021-05 Yes [id number] 100mg Take 1 [place] 100 mg 1-22 tablet by ity of tablet 00:00: mouth in [place] 00 the Medical morning. Branch albuterol 2021-05 Yes [id number] 2{puff} Inhale 2 [facility] (PROAIR 1-22 Puffs ity of HFA) 90 00:00: every 6 [place] mcg/actuati 00 (six) Medical on inhaler hours as Branc h needed for Wheezing, Shortness of Breath or Chest tightness. losartan 2021-05 Yes [id number] 100mg Take 1 [place] 100 mg 1-22 tablet by ity of tablet 00:00: mouth in [place] 00 the Medical morning. Branch albuterol 2021-05 Yes [id number] 2{puff} Inhale 2 [facility] (PROAIR 1-22 Puffs ity of HFA) 90 00:00: every 6 [place] mcg/actuati 00 (six) Medical on inhaler hours as Branc h needed for Wheezing, Shortness of Breath or Chest tightness. losartan 2021-05 Yes [id number] 100mg Take 1 [facility] [place] 100 mg 1-22 tablet by ity of tablet 00:00: mouth in [place] 00 the Medical morning. Branch albuterol 2021-05 Yes [id number] 2{puff} Inhale 2 [facility] (PROAIR 1-22 Puffs ity of HFA) 90 00:00: every 6 [place] mcg/actuati 00 (six) Medical on inhaler hours as Branc h needed for Wheezing, Shortness of Breath or Chest tightness. losartan 2021-05 Yes [id number] 100mg Take 1 [facility] [place] 100 mg 1-22 tablet by ity of tablet 00:00: mouth in [place] 00 the Medical morning. Branch albuterol 2021-05 Yes [id number] 2{puff} Inhale 2 [facility] (PROAIR 1-22 Puffs ity of HFA) 90 00:00: every 6 [place] mcg/actuati 00 (six) Medical on inhaler hours as Branc h needed for Wheezing, Shortness of Breath or Chest tightness. losartan 2021-05 Yes [id number] 100mg Take 1 [place] 100 mg 1-22 tablet by ity of tablet 00:00: mouth in [place] 00 the Medical morning. Branch albuterol 2021-05 Yes [id number] 2{puff} Inhale 2 [facility] (PROAIR 1-22 Puffs ity of HFA) 90 00:00: every 6 [place] mcg/actuati 00 (six) Medical on inhaler hours as Branc h needed for Wheezing, Shortness of Breath or Chest tightness. losartan 2021-05 Yes [id number] 100mg Take 1 [facility] [place] 100 mg 1-22 tablet by ity of tablet 00:00: mouth in [place] 00 the Medical morning. Branch albuterol 2021-05 Yes [id number] 2{puff} Inhale 2 [facility] (PROAIR 1-22 Puffs ity of HFA) 90 00:00: every 6 [place] mcg/actuati 00 (six) Medical on inhaler hours as Branc h needed for Wheezing, Shortness of Breath or Chest tightness. losartan 2021-05 Yes [id number] 100mg Take 1 [facility] [place] 100 mg 1-22 tablet by ity of tablet 00:00: mouth in [place] 00 the Medical morning. Branch albuterol 2021-05 Yes [id number] 2{puff} Inhale 2 [facility] (PROAIR 1-22 Puffs ity of HFA) 90 00:00: every 6 [place] mcg/actuati 00 (six) Medical on inhaler hours as Branc h needed for Wheezing, Shortness of Breath or Chest tightness. albuterol 2021-05 Yes [id number] 2{puff} Inhale 2 [facility] (PROAIR 1-22 Puffs ity of HFA) 90 00:00: every 6 [place] mcg/actuati 00 (six) Medical on inhaler hours as Branc h needed for Wheezing, Shortness of Breath or Chest tightness. albuterol 2021-05 Yes [id number] 2{puff} Inhale 2 [facility] (PROAIR 1-22 Puffs ity of HFA) 90 00:00: every 6 [place] mcg/actuati 00 (six) Medical on inhaler hours as Branc h needed for Wheezing, Shortness of Breath or Chest tightness. albuterol 2021-05 Yes [id number] 2{puff} Inhale 2 [facility] (PROAIR 1-22 Puffs ity of HFA) 90 00:00: every 6 [place] mcg/actuati 00 (six) Medical on inhaler hours as Branc h needed for Wheezing, Shortness of Breath or Chest tightness. albuterol 2021-05 Yes [id number] 2{puff} Inhale 2 [facility] (PROAIR 1-22 Puffs ity of HFA) 90 00:00: every 6 [place] mcg/actuati 00 (six) Medical on inhaler hours as Branc h needed for Wheezing, Shortness of Breath or Chest tightness. albuterol 2021-05 Yes [id number] 2{puff} Inhale 2 [facility] (PROAIR 1-22 Puffs ity of HFA) 90 00:00: every 6 [place] mcg/actuati 00 (six) Medical on inhaler hours as Branc h needed for Wheezing, Shortness of Breath or Chest tightness. albuterol 2021-05 Yes [id number] 2{puff} Inhale 2 [facility] (PROAIR 1-22 Puffs ity of HFA) 90 00:00: every 6 [place] mcg/actuati 00 (six) Medical on inhaler hours as Branc h needed for Wheezing, Shortness of Breath or Chest tightness. albuterol 2021-05 Yes [id number] 2{puff} Inhale 2 [facility] (PROAIR 1-22 Puffs ity of HFA) 90 00:00: every 6 [place] mcg/actuati 00 (six) Medical on inhaler hours as Branc h needed for Wheezing, Shortness of Breath or Chest tightness. albuterol 2021-05 Yes [id number] 2{puff} Inhale 2 [facility] (PROAIR 1-22 Puffs ity of HFA) 90 00:00: every 6 [place] mcg/actuati 00 (six) Medical on inhaler hours as Branc h needed for Wheezing, Shortness of Breath or Chest tightness. albuterol 2021-05 Yes [id number] 2{puff} Inhale 2 [facility] (PROAIR 1-22 Puffs ity of HFA) 90 00:00: every 6 [place] mcg/actuati 00 (six) Medical on inhaler hours as Branc h needed for Wheezing, Shortness of Breath or Chest tightness. albuterol 2021-05 Yes [id number] 2{puff} Inhale 2 [facility] (PROAIR 1-22 Puffs ity of HFA) 90 00:00: every 6 [place] mcg/actuati 00 (six) Medical on inhaler hours as Branc h needed for Wheezing, Shortness of Breath or Chest tightness. albuterol 2021-05 Yes [id number] 2{puff} Inhale 2 [facility] (PROAIR 1-22 Puffs ity of HFA) 90 00:00: every 6 [place] mcg/actuati 00 (six) Medical on inhaler hours as Branc h needed for Wheezing, Shortness of Breath or Chest tightness. albuterol 2021-05 Yes [id number] 2{puff} Inhale 2 [facility] (PROAIR 1-22 Puffs ity of HFA) 90 00:00: every 6 [place] mcg/actuati 00 (six) Medical on inhaler hours as Branc h needed for Wheezing, Shortness of Breath or Chest tightness. albuterol 2021-05 Yes [id number] 2{puff} Inhale 2 [facility] (PROAIR 1-22 Puffs ity of HFA) 90 00:00: every 6 [place] mcg/actuati 00 (six) Medical on inhaler hours as Branc h needed for Wheezing, Shortness of Breath or Chest tightness. albuterol 2021-05 Yes [id number] 2{puff} Inhale 2 [facility] (PROAIR 1-22 Puffs ity of HFA) 90 00:00: every 6 [place] mcg/actuati 00 (six) Medical on inhaler hours as Branc h needed for Wheezing, Shortness of Breath or Chest tightness. albuterol 2021-05 Yes [id number] 2{puff} Inhale 2 [facility] (PROAIR 1-22 Puffs ity of HFA) 90 00:00: every 6 [place] mcg/actuati 00 (six) Medical on inhaler hours as Branc h needed for Wheezing, Shortness of Breath or Chest tightness. albuterol 2021-05 Yes [id number] 2{puff} Inhale 2 [facility] (PROAIR 1-22 Puffs ity of HFA) 90 00:00: every 6 [place] mcg/actuati 00 (six) Medical on inhaler hours as Branc h needed for Wheezing, Shortness of Breath or Chest tightness. albuterol 2021-05 Yes [id number] 2{puff} Inhale 2 [facility] (PROAIR 1-22 Puffs ity of HFA) 90 00:00: every 6 [place] mcg/actuati 00 (six) Medical on inhaler hours as Branc h needed for Wheezing, Shortness of Breath or Chest tightness. albuterol 2021-05 Yes [id number] 2{puff} Inhale 2 [facility] (PROAIR 1-22 Puffs ity of HFA) 90 00:00: every 6 [place] mcg/actuati 00 (six) Medical on inhaler hours as Branc h needed for Wheezing, Shortness of Breath or Chest tightness. albuterol 2021-05 Yes [id number] 2{puff} Inhale 2 [facility] (PROAIR 1-22 Puffs ity of HFA) 90 00:00: every 6 [place] mcg/actuati 00 (six) Medical on inhaler hours as Branc h needed for Wheezing, Shortness of Breath or Chest tightness. albuterol 2021-05 Yes [id number] 2{puff} Inhale 2 [facility] (PROAIR 1-22 Puffs ity of HFA) 90 00:00: every 6 [place] mcg/actuati 00 (six) Medical on inhaler hours as Branc h needed for Wheezing, Shortness of Breath or Chest tightness. albuterol 2021-05 Yes [id number] 2{puff} Inhale 2 [facility] (PROAIR 1-22 Puffs ity of HFA) 90 00:00: every 6 [place] mcg/actuati 00 (six) Medical on inhaler hours as Branc h needed for Wheezing, Shortness of Breath or Chest tightness. albuterol 2021-05 Yes [id number] 2{puff} Inhale 2 [facility] (PROAIR 1-22 Puffs ity of HFA) 90 00:00: every 6 [place] mcg/actuati 00 (six) Medical on inhaler hours as Branc h needed for Wheezing, Shortness of Breath or Chest tightness. albuterol 2021-05 Yes [id number] 2{puff} Inhale 2 [facility] (PROAIR 1-22 Puffs ity of HFA) 90 00:00: every 6 [place] mcg/actuati 00 (six) Medical on inhaler hours as Branc h needed for Wheezing, Shortness of Breath or Chest tightness. albuterol 2021-05 Yes [id number] 2{puff} Inhale 2 [facility] (PROAIR 1-22 Puffs ity of HFA) 90 00:00: every 6 [place] mcg/actuati 00 (six) Medical on inhaler hours as Branc h needed for Wheezing, Shortness of Breath or Chest tightness. albuterol 2021-05 Yes [id number] 2{puff} Inhale 2 [facility] (PROAIR 1-22 Puffs ity of HFA) 90 00:00: every 6 [place] mcg/actuati 00 (six) Medical on inhaler hours as Branc h needed for Wheezing, Shortness of Breath or Chest tightness. albuterol 2021-05 Yes [id number] 2{puff} Inhale 2 [facility] (PROAIR 1-22 Puffs ity of HFA) 90 00:00: every 6 [place] mcg/actuati 00 (six) Medical on inhaler hours as Branc h needed for Wheezing, Shortness of Breath or Chest tightness. albuterol 2021-05 Yes [id number] 2{puff} Inhale 2 [facility] (PROAIR 1-22 Puffs ity of HFA) 90 00:00: every 6 [place] mcg/actuati 00 (six) Medical on inhaler hours as Branc h needed for Wheezing, Shortness of Breath or Chest tightness. albuterol 2021-05 Yes [id number] 2{puff} Inhale 2 [facility] (PROAIR 1-22 Puffs ity of HFA) 90 00:00: every 6 [place] mcg/actuati 00 (six) Medical on inhaler hours as Branc h needed for Wheezing, Shortness of Breath or Chest tightness. albuterol 2021-05 Yes [id number] 2{puff} Inhale 2 [facility] (PROAIR 1-22 Puffs ity of HFA) 90 00:00: every 6 [place] mcg/actuati 00 (six) Medical on inhaler hours as Branc h needed for Wheezing, Shortness of Breath or Chest tightness. albuterol 2021-05 Yes [id number] 2{puff} Inhale 2 [facility] (PROAIR 1-22 Puffs ity of HFA) 90 00:00: every 6 [place] mcg/actuati 00 (six) Medical on inhaler hours as Branc h needed for Wheezing, Shortness of Breath or Chest tightness. albuterol 2021-05 Yes [id number] 2{puff} Inhale 2 [facility] (PROAIR 1-22 Puffs ity of HFA) 90 00:00: every 6 [place] mcg/actuati 00 (six) Medical on inhaler hours as Branc h needed for Wheezing, Shortness of Breath or Chest tightness. albuterol 2021-05 Yes [id number] 2{puff} Inhale 2 [facility] (PROAIR 1-22 Puffs ity of HFA) 90 00:00: every 6 [place] mcg/actuati 00 (six) Medical on inhaler hours as Branc h needed for Wheezing, Shortness of Breath or Chest tightness. albuterol 2021-05 Yes [id number] 2{puff} Inhale 2 [facility] (PROAIR 1-22 Puffs ity of HFA) 90 00:00: every 6 [place] mcg/actuati 00 (six) Medical on inhaler hours as Branc h needed for Wheezing, Shortness of Breath or Chest tightness. albuterol 2021-05 Yes [id number] 2{puff} Inhale 2 [facility] (PROAIR 1-22 Puffs ity of HFA) 90 00:00: every 6 [place] mcg/actuati 00 (six) Medical on inhaler hours as Branc h needed for Wheezing, Shortness of Breath or Chest tightness. albuterol 2021-05 Yes [id number] 2{puff} Inhale 2 [facility] (PROAIR 1-22 Puffs ity of HFA) 90 00:00: every 6 [place] mcg/actuati 00 (six) Medical on inhaler hours as Branc h needed for Wheezing, Shortness of Breath or Chest tightness. albuterol 2021-05 Yes [id number] 2{puff} Inhale 2 [facility] (PROAIR 1-22 Puffs ity of HFA) 90 00:00: every 6 [place] mcg/actuati 00 (six) Medical on inhaler hours as Branc h needed for Wheezing, Shortness of Breath or Chest tightness. albuterol 2021-05 Yes [id number] 2{puff} Inhale 2 [facility] (PROAIR 1-22 Puffs ity of HFA) 90 00:00: every 6 [place] mcg/actuati 00 (six) Medical on inhaler hours as Branc h needed for Wheezing, Shortness of Breath or Chest tightness. albuterol 2021-05 Yes [id number] 2{puff} Inhale 2 [facility] (PROAIR 1-22 Puffs ity of HFA) 90 00:00: every 6 [place] mcg/actuati 00 (six) Medical on inhaler hours as Branc h needed for Wheezing, Shortness of Breath or Chest tightness. albuterol 2021-05 Yes [id number] 2{puff} Inhale 2 [facility] (PROAIR 1-22 Puffs ity of HFA) 90 00:00: every 6 [place] mcg/actuati 00 (six) Medical on inhaler hours as Branc h needed for Wheezing, Shortness of Breath or Chest tightness. albuterol 2021-05 Yes [id number] 2{puff} Inhale 2 [facility] (PROAIR 1-22 Puffs ity of HFA) 90 00:00: every 6 [place] mcg/actuati 00 (six) Medical on inhaler hours as Branc h needed for Wheezing, Shortness of Breath or Chest tightness. albuterol 2021-05 Yes [id number] 2{puff} Inhale 2 [facility] (PROAIR 1-22 Puffs [...] 5mg Take 1 [facility] s (ELIQUIS) 5 02-09-25 tablet by it y of mg tablet 00:00: 00:00 mouth in [place] as 00 :00 the Medical morning Branch and 1 tablet in the evening. Indication s: atrial fibrillati on metFORMIN 2021-0 Yes [id number] 1000mg Take 1 [facility] 1,000 mg 9-23 tablet by ity of tablet 00:00: mouth in [place] 00 the Medical morning Branch and 1 tablet in the evening. Take with meals. Omeprazole 2021-0 Yes [id number] 20mg Take 1 [facility] 20 mg 9-23 tablet by ity of tablet 00:00: mouth in [place] the morning. Branch metFORMIN 2021-0 Yes [id number] 1000mg Take 1 [facility] 1,000 mg 9-23 tablet by ity of tablet 00:00: mouth in [place] the Medical morning Branch and 1 tablet in the evening. Take with meals. Omeprazole 2021-0 Yes [id number] 20mg Take 1 [facility] 20 mg 9-23 tablet by ity of tablet 00:00: mouth in [place] the morning. Branch metFORMIN 2021-0 Yes [id number] 1000mg Take 1 [facility] 1,000 mg 9-23 tablet by ity of tablet 00:00: mouth in [place] the morning Branch and 1 tablet in the evening. Take with meals. Omeprazole 2021-0 Yes [id number] 20mg Take 1 [facility] 20 mg 9-23 tablet by ity of tablet 00:00: mouth in [place] the morning. Branch metFORMIN 2021-0 Yes [id number] 1000mg Take 1 [facility] 1,000 mg 9-23 tablet by ity of tablet 00:00: mouth in [place] the morning Branch and 1 tablet in the evening. Take with meals. Omeprazole 2-0 Yes [id number] 20mg Take 1 [facility] 20 mg 9-23 tablet by ity of tablet 00:00: mouth in [place] the morning. Branch metFORMIN 2021-0 Yes [id number] 1000mg Take 1 [facility] 1,000 mg 9-23 tablet by ity of tablet 00:00: mouth in [place] [address] the [facility] morning [place] and 1 tablet in the evening. Take with meals. Omeprazole 2022-0 Yes [id number] 20mg Take 1 [facility] 20 mg 9-23 tablet by ity of tablet 00:00: mouth in [place] [address] the morning. Branch metFORMIN 2022-0 Yes [id number] 1000mg Take 1 [facility] 1,000 mg 9-23 tablet by ity of tablet 00:00: mouth in [place] [address] the [facility] morning Branch and 1 tablet in the evening. Take with meals. Omeprazole 2022-0 Yes [id number] 20mg Take 1 [facility] 20 mg 9-23 tablet by ity of tablet 00:00: mouth in [place] [address] the morning. Branch metFORMIN 2022-0 Yes [id number] 1000mg Take 1 [facility] 1,000 mg 9-23 tablet by ity of tablet 00:00: mouth in [address] [place] and 1 tablet in the evening. Take with meals. Omeprazole 2022-0 Yes [id number] 20mg Take 1 [facility] 20 mg 9-23 tablet by ity of tablet 00:00: mouth in [place] [address] the . Branch metFORMIN 2022-0 Yes [id number] 1000mg Take 1 [facility] 1,000 mg 9-23 tablet by ity of tablet 00:00: mouth in [address] [place] and 1 tablet in the evening. Take with meals. Omeprazole 2022-0 Yes [id number] 20mg Take 1 [facility] 20 mg 9-23 tablet by ity of tablet 00:00: mouth in [place] [address] the . Branch metFORMIN 2022-0 Yes [id number] 1000mg Take 1 [facility] 1,000 mg 9-23 tablet by ity of tablet 00:00: mouth in [address] and 1 tablet in the evening. Take with meals. Omeprazole 2022-0 Yes [id number] 20mg Take 1 [facility] 20 mg 9-23 tablet by ity of tablet 00:00: mouth in [place] [address] the morning. Branch metFORMIN 2022-0 Yes [id number] 1000mg Take 1 [facility] 1,000 mg 9-23 tablet by ity of tablet 00:00: mouth in [address] morning [place] and 1 tablet in the evening. Take with meals. Omeprazole 2022-0 Yes [id number] 20mg Take 1 [facility] 20 mg 9-23 tablet by ity of tablet 00:00: mouth in [place] the morning. Branch metFORMIN 2022-0 Yes [id number] 1000mg Take 1 [facility] 1,000 mg 9-23 tablet by ity of tablet 00:00: mouth in [place] [address] the morning Branch and 1 tablet in the evening. Take with meals. Omeprazole 2022-0 Yes [id number] 20mg Take 1 [facility] 20 mg 9-23 tablet by ity of tablet 00:00: mouth in [place] the morning. Branch metFORMIN 2022-0 Yes [id number] 1000mg Take 1 [facility] 1,000 mg 9-23 tablet by ity of tablet 00:00: mouth in [place] [address] the morning Branch and 1 tablet in the evening. Take with meals. Omeprazole 2022-0 Yes [id number] 20mg Take 1 [facility] 20 mg 9-23 tablet by ity of tablet 00:00: mouth in [place] the . Branch metFORMIN 2022-0 Yes [id number] 1000mg Take 1 [facility] 1,000 mg 9-23 tablet by ity of tablet 00:00: mouth in [place] [address] the [place] and 1 tablet in the evening. Take with meals. Omeprazole 2022-0 Yes [id number] 20mg Take 1 [facility] 20 mg 9-23 tablet by ity of tablet 00:00: mouth in [place] the . Branch metFORMIN 2022-0 Yes [id number] 1000mg Take 1 [facility] 1,000 mg 9-23 tablet by ity of tablet 00:00: mouth in [place] [address] the [place] and 1 tablet in the evening. Take with meals. Omeprazole 2022-0 Yes [id number] 20mg Take 1 [facility] 20 mg 9-23 tablet by ity of tablet 00:00: mouth in [place] the morning. Branch metFORMIN 2022-0 Yes [id number] 1000mg Take 1 [facility] 1,000 mg 9-23 tablet by ity of tablet 00:00: mouth in [place] [address] the morning Branch and 1 tablet in the evening. Take with meals. Omeprazole 2022-0 Yes [id number] 20mg Take 1 [facility] 20 mg 9-23 tablet by ity of tablet 00:00: mouth in [place] [address] the morning. Branch metFORMIN 2022-0 Yes [id number] 1000mg Take 1 [facility] 1,000 mg 9-23 tablet by ity of tablet 00:00: mouth in [place] 00 the Medical morning Branch and 1 tablet in the evening. Take with meals. Omeprazole 2022-0 Yes [id number] 20mg Take 1 [facility] 20 mg 9-23 tablet by ity of tablet 00:00: mouth in [place] the Medical morning. Branch metFORMIN 2022-0 Yes [id number] 1000mg Take 1 [facility] 1,000 mg 9-23 tablet by ity of tablet 00:00: mouth in [place] [address] the Medical morning Branch and 1 tablet in the evening. Take with meals. Omeprazole 2022-0 Yes [id number] 20mg Take 1 [facility] 20 mg 9-23 tablet by ity of tablet 00:00: mouth in [place] 00 the morning. Branch metFORMIN 2022-0 Yes [id number] 1000mg Take 1 [facility] 1,000 mg 9-23 tablet by ity of tablet 00:00: mouth in [place] [address] the morning Branch and 1 tablet in the evening. Take with meals. Omeprazole 2022-0 Yes [id number] 20mg Take 1 [facility] 20 mg 9-23 tablet by ity of tablet 00:00: mouth in [place] the morning. Branch metFORMIN 2022-0 Yes [id number] 1000mg Take 1 [facility] 1,000 mg 9-23 tablet by ity of tablet 00:00: mouth in [place] the morning Branch and 1 tablet in the evening. Take with meals. Omeprazole 2022-0 Yes [id number] 20mg Take 1 [facility] 20 mg 9-23 tablet by ity of tablet 00:00: mouth in [place] the Medical morning. Branch metFORMIN 2022-0 2022- No [id number] 1000mg Take 1 [facility] 1,000 mg 9-23 12-12 tablet by ity o f tablet 00:00: 00:00 mouth in [place] 00 :00 the morning Branch and 1 tablet in the evening. Take with meals. Omeprazole 2022-0 2022- No [id number] 20mg Take 1 [facility] 20 mg 9-23 12-12 tablet by ity of tablet 00:00: 00:00 mouth in [place] 00 :00 the Medical morning. Branch metFORMIN 2022-0 2022- No [id number] 1000mg Take 1 [facility] 1,000 mg 9-23 12-12 tablet by ity o f tablet 00:00: 00:00 mouth in [place] 00 :00 the Medical morning Branch and 1 tablet in the evening. Take with meals. Omeprazole 2022-0 2022- No [id number] 20mg Take 1 [facility] 20 mg 02-02 1212 tablet by ity of tablet 00:00: 00:00 mouth in [place] 00 :00 the [facility] morning. Branch apixaban Yes 1358 5mg Take 1 [facility] (ELIQUIS) 5 9-07 tablet by ity of mg tablet 00:00: mouth in [place] [address] the Medical morning Branch and 1 tablet in the evening. Indication s: atrial fibrillati on apixaban Yes 1358 5mg Take 1 [facility] (ELIQUIS) 5 9-07 tablet by ity of mg tablet 00:00: mouth in [place] [address] the Medical morning Branch and 1 tablet in the evening. Indication s: atrial fibrillati on apixaban Yes 1358 5mg Take 1 [facility] (ELIQUIS) 5 9-07 tablet by ity of mg tablet 00:00: mouth in [place] [address] the Medical morning Branch and 1 tablet in the evening. Indication s: atrial fibrillati on apixaban Yes 1358 5mg Take 1 [facility] (ELIQUIS) 5 9-07 tablet by ity of mg tablet 00:00: mouth in [place] [address] the Medical morning Branch and 1 tablet in the evening. Indication s: atrial fibrillati on apixaban Yes 1358 5mg Take 1 [facility] (ELIQUIS) 5 9-07 tablet by ity of mg tablet 00:00: mouth in [place] [address] the Medical morning Branch and 1 tablet in the evening. Indication s: atrial fibrillati on apixaban Yes 1358 5mg Take 1 [facility] (ELIQUIS) 5 9-07 tablet by ity of mg tablet 00:00: mouth in [facility] s 00 the Medical morning Branch and 1 tablet in the evening. Indication s: atrial fibrillati on apixaban 2021-0 Yes 1358 5mg Take 1 [facility] (ELIQUIS) 5 9-07 tablet by ity of mg tablet 00:00: mouth in [place] [address] the Medical morning Branch and 1 tablet [...] tablet 41 :00 Medical Branch montelukast Yes [id number] 10mg Take 1 [facility] (SINGULAIR) 8-25 tablet by ity of 10 mg 00:00: mouth in [place] tablet 00 the Medical morning. [place] montelukast Yes [id number] 10mg Take 1 [facility] (SINGULAIR) 8-25 tablet by ity of 10 mg 00:00: mouth in [place] tablet 00 the Medical morning. [place] montelukast Yes [id number] 10mg Take 1 [facility] (SINGULAIR) 8-25 tablet by ity of 10 mg 00:00: mouth in [place] tablet 00 the Medical morning. [place] montelukast Yes [id number] 10mg Take 1 [facility] (SINGULAIR) 8-25 tablet by ity of 10 mg 00:00: mouth in [place] tablet 00 the Medical morning. [place] montelukast Yes [id number] 10mg Take 1 [facility] (SINGULAIR) 8-25 tablet by ity of 10 mg 00:00: mouth in [place] tablet 00 the Medical morning. [place] montelukast Yes [id number] 10mg Take 1 [facility] (SINGULAIR) 8-25 tablet by ity of 10 mg 00:00: mouth in [place] tablet 00 the Medical morning. [place] montelukast Yes [id number] 10mg Take 1 [facility] (SINGULAIR) 8-25 tablet by ity of 10 mg 00:00: mouth in [place] tablet 00 the Medical morning. [place] montelukast Yes [id number] 10mg Take 1 [facility] (SINGULAIR) 8-25 tablet by ity of 10 mg 00:00: mouth in [place] tablet 00 the Medical morning. Branch montelukast 0 Yes [id number] 10mg Take 1 [facility] (SINGULAIR) 8-25 tablet by ity of 10 mg 00:00: mouth in [place] tablet 00 the Medical morning. Branch montelukast 0 Yes [id number] 10mg Take 1 [facility] (SINGULAIR) 8-25 tablet by ity of 10 mg 00:00: mouth in [place] tablet 00 the Medical morning. Branch montelukast 0 Yes [id number] 10mg Take 1 [facility] (SINGULAIR) 8-25 tablet by ity of 10 mg 00:00: mouth in [place] tablet 00 the Medical morning. Branch montelukast 0 Yes [id number] 10mg Take 1 [facility] (SINGULAIR) 8-25 tablet by ity of 10 mg 00:00: mouth in [place] tablet 00 the Medical morning. Branch montelukast 0 Yes [id number] 10mg Take 1 [facility] (SINGULAIR) 8-25 tablet by ity of 10 mg 00:00: mouth in [place] tablet 00 the Medical morning. Branch montelukast 0 Yes [id number] 10mg Take 1 [facility] (SINGULAIR) 8-25 tablet by ity of 10 mg 00:00: mouth in [place] tablet 00 the Medical morning. Branch montelukast 0 Yes [id number] 10mg Take 1 [facility] (SINGULAIR) 8-25 tablet by ity of 10 mg 00:00: mouth in [place] tablet 00 the Medical morning. Branch montelukast 0 Yes [id number] 10mg Take 1 [facility] (SINGULAIR) 8-25 tablet by ity of 10 mg 00:00: mouth in [place] tablet 00 the Medical morning. Branch montelukast 0 Yes [id number] 10mg Take 1 [facility] (SINGULAIR) 8-25 tablet by ity of 10 mg 00:00: mouth in [place] tablet 00 the Medical morning. Branch montelukast 0 Yes [id number] 10mg Take 1 [facility] (SINGULAIR) 8-25 tablet by ity of 10 mg 00:00: mouth in [place] tablet 00 the Medical morning. Branch montelukast 0 Yes [id number] 10mg Take 1 [facility] (SINGULAIR) 8-25 tablet by ity of 10 mg 00:00: mouth in [place] tablet 00 the Medical morning. Branch montelukast 0 Yes [id number] 10mg Take 1 [facility] (SINGULAIR) 8-25 tablet by ity of 10 mg 00:00: mouth in [place] tablet 00 the Medical morning. Branch montelukast 0 Yes [id number] 10mg Take 1 [facility] (SINGULAIR) 8-25 tablet by ity of 10 mg 00:00: mouth in [place] tablet 00 the Medical morning. Branch montelukast 0 Yes [id number] 10mg Take 1 [facility] (SINGULAIR) 8-25 tablet by ity of 10 mg 00:00: mouth in [place] tablet 00 the Medical morning. Branch montelukast Yes [id number] 10mg Take 1 [facility] (SINGULAIR) 8-25 tablet by ity of 10 mg 00:00: mouth in [place] tablet 00 the Medical morning. Branch montelukast 0 Yes [id number] 10mg Take 1 [facility] (SINGULAIR) 8-25 tablet by ity of 10 mg 00:00: mouth in [place] tablet 00 the Medical morning. Branch montelukast 0 Yes [id number] 10mg Take 1 [facility] (SINGULAIR) 8-25 tablet by ity of 10 mg 00:00: mouth in [place] tablet 00 the Medical morning. Branch montelukast 0 Yes [id number] 10mg Take 1 [facility] (SINGULAIR) 8-25 tablet by ity of 10 mg 00:00: mouth in [place] tablet 00 the Medical morning. Branch montelukast 0 Yes [id number] 10mg Take 1 [facility] (SINGULAIR) 8-25 tablet by ity of 10 mg 00:00: mouth in [place] tablet 00 the Medical morning. Branch montelukast 0 Yes [id number] 10mg Take 1 [facility] (SINGULAIR) 8-25 tablet by ity of 10 mg 00:00: mouth in [place] tablet 00 the Medical morning. Branch montelukast 0 Yes [id number] 10mg Take 1 [facility] (SINGULAIR) 8-25 tablet by ity of 10 mg 00:00: mouth in [place] tablet 00 the Medical morning. Branch montelukast Yes [id number] 10mg Take 1 [facility] (SINGULAIR) 8-25 tablet by ity of 10 mg 00:00: mouth in [place] tablet 00 the Medical morning. Branch montelukast Yes [id number] 10mg Take 1 [facility] (SINGULAIR) 8-25 tablet by ity of 10 mg 00:00: mouth in [place] tablet 00 the morning. Branch montelukast 3- No [id number] 10mg Take 1 [facility] (SINGULAIR) 8-25 02-14 [...] 5mg Take 1 Univer s (ELIQUIS) 5 12-29 tablet by it y of mg tablet 00:00: 00:00 mouth in [facility] as 00 :00 the Medical morning [place] and 1 tablet in the evening. Indication s: atrial fibrillati on metFORMIN 2021-0 Yes [id number] 1000mg Take 1 [facility] 1,000 mg 8-02 tablet by ity of tablet 00:00: mouth in [place] [address] the [facility] morning [place] and 1 tablet in the evening. Take with meals. metFORMIN 2021-0 Yes [id number] 1000mg Take 1 [facility] 1,000 mg 8-02 tablet by ity of tablet 00:00: mouth in [address] morning [place] and 1 tablet in the evening. Take with meals. metFORMIN 2021-0 Yes [id number] 1000mg Take 1 [facility] 1,000 mg 8-02 tablet by ity of tablet 00:00: mouth in [address] morning [place] and 1 tablet in the evening. Take with meals. metFORMIN 2021-0 Yes [id number] 1000mg Take 1 [facility] 1,000 mg 8-02 tablet by ity of tablet 00:00: mouth in [address] and 1 tablet in the evening. Take with meals. metFORMIN 2021-0 Yes [id number] 1000mg Take 1 [facility] 1,000 mg 8-02 tablet by ity of tablet 00:00: mouth in [address] morning [place] and 1 tablet in the evening. Take with meals. metFORMIN 2021-0 Yes [id number] 1000mg Take 1 [facility] 1,000 mg 8-02 tablet by ity of tablet 00:00: mouth in [address] and 1 tablet in the evening. Take with meals. metFORMIN 2021-0 Yes [id number] 1000mg Take 1 [facility] 1,000 mg 8-02 tablet by ity of tablet 00:00: mouth in [address] and 1 tablet in the evening. Take with meals. metFORMIN 2021-0 Yes [id number] 1000mg Take 1 [facility] 1,000 mg 8-02 tablet by ity of tablet 00:00: mouth in [address] morning [place] and 1 tablet in the evening. Take with meals. metFORMIN 2022-0 Yes [id number] 1000mg Take 1 [facility] 1,000 mg 8-02 tablet by ity of tablet 00:00: mouth in [place] 00 the Medical morning Branch and 1 tablet in the evening. Take with meals. metFORMIN Yes [id number] 1000mg Take 1 [facility] 1,000 mg 8-02 tablet by ity of tablet 00:00: mouth in [place] 00 the Medical morning Branch and 1 tablet in the evening. Take with meals. metFORMIN 2021- No [id number] 1000mg Take 1 [facility] 1,000 mg 8-02-02 tablet by ity o f tablet 00:00: 00:00 mouth in [place] 00 :00 the Medical morning Branch and 1 tablet in the evening. Take with meals. metFORMIN 2021- No [id number] 1000mg Take 1 [facility] 1,000 mg 8-02-02 tablet by ity o f tablet 00:00: 00:00 mouth in [place] 00 :00 the Medical morning Branch and 1 tablet in the evening. Take with meals. apixaban Yes 1358 5mg Take 1 [facility] (ELIQUIS) 5 7-21 tablet by ity of mg tablet 00:00: mouth in [facility] s 00 the Medical morning Branch and 1 tablet in the evening. Indication s: atrial fibrillati on apixaban Yes 1358 5mg Take 1 [facility] (ELIQUIS) 5 7-21 tablet by ity of mg tablet 00:00: mouth in [facility] s 00 the Medical morning Branch and 1 tablet in the evening. Indication s: atrial fibrillati on apixaban 2021- No 1358 5mg Take 1 [facility] (ELIQUIS) 5 7-21 08-19 tablet by it y of mg tablet 00:00: 00:00 mouth in [place] 00 :00 the Medical morning Branch and 1 tablet in the evening. Indication s: atrial fibrillati on chlorphenir Yes [id number] 4mg Take 1 [facility] amine 4 mg 6-29 tablet by ity of tablet 00:00: mouth [place] 00 every 6 Medical (six) Branch hours as needed for Allergies or Runny nose. calcium/mag Yes [id number] 1{each} Take 1 [facility] nesium/zinc 6-29 Each by ity o f (CALCIUM-MA 00:00: mouth [place] GNESUIUM-ZI 00 daily. Medica l [place]) Branch 333-133-5 mg Tab benzonatate 2021-0 Yes [id number] 100mg Take 1 [facility] 100 mg 6-29 capsule by ity of capsule 00:00: mouth 3 [place] 00 (three) Medical times Branch daily as needed for Cough. nirmatrelvi 2021-0 Yes [id number] 3{tbl} Take 3 [facility] r-ritonavir 6-29 tablets by it y of (PAXLOVID, 00:00: [place] EUA[place] 150 00 (two) Medical mg x 2- 100 times Branch mg tablet daily. chlorphenir 2021-0 Yes [id number] 4mg Take 1 [facility] amine 4 mg 6-29 tablet by ity of tablet 00:00: mouth [place] 00 every 6 Medical (six) Branch hours as needed for Allergies or Runny nose. calcium/mag 2021-0 Yes [id number] 1{each} Take 1 [facility] nesium/zinc 6-29 Each by ity o f (CALCIUM-MA 00:00: mouth [place] GNESUIUM-ZI 00 daily. Medica l [place]) Branch 333-133-5 mg Tab benzonatate 2021-0 Yes [id number] 100mg Take 1 [facility] 100 mg 6-29 capsule by ity of capsule 00:00: mouth 3 [place] 00 (three) Medical times Branch daily as needed for Cough. nirmatrelvi 2021-0 Yes [id number] 3{tbl} Take 3 [facility] r-ritonavir 6-29 tablets by it y of (PAXLOVID, 00:00: mouth [place] EUA[place] 150 00 (two) Medical mg x 2- 100 times Branch mg tablet daily. chlorphenir 2-0 Yes [id number] 4mg Take 1 [facility] amine 4 mg 6-29 tablet by ity of tablet 00:00: mouth [place] 00 every 6 Medical (six) Branch hours as needed for Allergies or Runny nose. calcium/mag 2021-0 Yes [id number] 1{each} Take 1 [facility] nesium/zinc 6-29 Each by ity o f (CALCIUM-MA 00:00: mouth [place] GNESUIUM-ZI 00 daily. Medica l [place]) Branch 333-133-5 mg Tab benzonatate 2021-0 Yes [id number] 100mg Take 1 [facility] 100 mg 6-29 capsule by ity of capsule 00:00: mouth 3 [place] 00 (three) Medical times Branch daily as needed for Cough. nirmatrelvi 2021-0 Yes [id number] 3{tbl} Take 3 [facility] r-ritonavir 6-29 tablets by it y of (PAXLOVID, 00:00: mouth 2 [place] EUA[place] 150 00 (two) Medical mg x 2- 100 times Branch mg tablet daily. chlorphenir 2021-0 Yes [id number] 4mg Take 1 [facility] amine 4 mg 6-29 tablet by ity of tablet 00:00: mouth [place] 00 every 6 Medical (six) Branch hours as needed for Allergies or Runny nose. calcium/mag 2021-0 Yes [id number] 1{each} Take 1 [facility] nesium/zinc 6-29 Each by ity o f (CALCIUM-MA 00:00: mouth [place] GNESUIUM-ZI 00 daily. Medica l [place]) Branch 333-133-5 mg Tab benzonatate 2021-0 Yes [id number] 100mg Take 1 [facility] 100 mg 6-29 capsule by ity of capsule 00:00: mouth 3 [place] 00 (three) Medical times Branch daily as needed for Cough. nirmatrelvi 2021-0 Yes [id number] 3{tbl} Take 3 [facility] r-ritonavir 6-29 tablets by it y of (PAXLOVID, 00:00: mouth 2 [place] EUA,) 150 00 (two) Medical mg x 2- 100 times Branch mg tablet daily. chlorphenir 2021-0 Yes [id number] 4mg Take 1 [facility] amine 4 mg 6-29 tablet by ity of tablet 00:00: mouth [place] 00 every 6 Medical (six) Branch hours as needed for Allergies or Runny nose. calcium/mag 2-0 Yes [id number] 1{each} Take 1 [facility] nesium/zinc 6-29 Each by ity o f (CALCIUM-MA 00:00: mouth [place] GNESUIUM-ZI 00 daily. Medica l [place]) Branch 333-133-5 mg Tab benzonatate 2-0 Yes [id number] 100mg Take 1 [facility] 100 mg 6-29 capsule by ity of capsule 00:00: mouth 3 [place] 00 (three) Medical times Branch daily as needed for Cough. nirmatrelvi 2021-0 Yes [id number] 3{tbl} Take 3 [facility] r-ritonavir 6-29 tablets by it y of (PAXLOVID, 00:00: mouth [place] EUA,) 150 00 (two) Medical mg x 2- 100 times Branch mg tablet daily. chlorphenir 2022-0 Yes [id number] 4mg Take 1 [facility] amine 4 mg 6-29 tablet by ity of tablet 00:00: mouth [place] 00 every 6 Medical (six) Branch hours as needed for Allergies or Runny nose. calcium/mag 2022-0 Yes [id number] 1{each} Take 1 [facility] nesium/zinc 6-29 Each by ity o f (CALCIUM-MA 00:00: mouth [place] GNESUIUM-ZI 00 daily. Medica l [place]) Branch 333-133-5 mg Tab benzonatate 2022-0 Yes [id number] 100mg Take 1 [facility] 100 mg 6-29 capsule by ity of capsule 00:00: mouth 3 [place] 00 (three) Medical times Branch daily as needed for Cough. nirmatrelvi 2021-0 Yes [id number] 3{tbl} Take 3 [facility] r-ritonavir 6-29 tablets by it y of (PAXLOVID, 00:00: mouth [place] EUA,) 150 00 (two) Medical mg x 2- 100 times Branch mg tablet daily. chlorphenir 2-0 Yes [id number] 4mg Take 1 [facility] amine 4 mg 6-29 tablet by ity of tablet 00:00: mouth [place] 00 every 6 Medical (six) Branch hours as needed for Allergies or Runny nose. calcium/mag 2-0 Yes [id number] 1{each} Take 1 [facility] nesium/zinc 6-29 Each by ity o f (CALCIUM-MA 00:00: mouth [place] GNESUIUM-ZI 00 daily. Medica l [place]) Branch 333-133-5 mg Tab benzonatate 2022-0 Yes [id number] 100mg Take 1 [facility] 100 mg 6-29 capsule by ity of capsule 00:00: mouth 3 [place] 00 (three) Medical times Branch daily as needed for Cough. nirmatrelvi 2021-0 Yes [id number] 3{tbl} Take 3 [facility] r-ritonavir 6-29 tablets by it y of (PAXLOVID, 00:00: mouth 2 [place] EUA,) 150 00 (two) Medical mg x 2- 100 times Branch mg tablet daily. chlorphenir 2021-0 Yes [id number] 4mg Take 1 [facility] amine 4 mg 6-29 tablet by ity of tablet 00:00: mouth [place] 00 every 6 Medical (six) Branch hours as needed for Allergies or Runny nose. calcium/mag 2021-0 Yes [id number] 1{each} Take 1 [facility] nesium/zinc 6-29 Each by ity o f (CALCIUM-MA 00:00: mouth [place] GNESUIUM-ZI 00 daily. Medica l [place]) Branch 333-133-5 mg Tab benzonatate 2021-0 Yes [id number] 100mg Take 1 [facility] 100 mg 6-29 capsule by ity of capsule 00:00: mouth 3 [place] 00 (three) Medical times Branch daily as needed for Cough. nirmatrelvi 2021-0 Yes [id number] 3{tbl} Take 3 [facility] r-ritonavir 6-29 tablets by it y of (PAXLOVID, 00:00: mouth 2 [place] EUA,) 150 00 (two) Medical mg x 2- 100 times Branch mg tablet daily. chlorphenir 2021-0 Yes [id number] 4mg Take 1 [facility] amine 4 mg 6-29 tablet by ity of tablet 00:00: mouth [place] 00 every 6 Medical (six) Branch hours as needed for Allergies or Runny nose. calcium/mag 2021-0 Yes [id number] 1{each} Take 1 [facility] nesium/zinc 6-29 Each by ity o f (CALCIUM-MA 00:00: mouth [place] GNESUIUM-ZI 00 daily. Medica l [place]) Branch 333-133-5 mg Tab benzonatate 2021-0 Yes [id number] 100mg Take 1 [facility] 100 mg 6-29 capsule by ity of capsule 00:00: mouth 3 [place] 00 (three) Medical times Branch daily as needed for Cough. nirmatrelvi 2021-0 Yes [id number] 3{tbl} Take 3 [facility] r-ritonavir 6-29 tablets by it y of (PAXLOVID, 00:00: mouth 2 [place] EUA,) 150 00 (two) Medical mg x 2- 100 times Branch mg tablet daily. chlorphenir Yes [id number] 4mg Take 1 [facility] amine 4 mg 6-29 tablet by ity of tablet 00:00: mouth [place] 00 every 6 Medical (six) Branch hours as needed for Allergies or Runny nose. calcium/mag 2021- Yes [id number] 1{each} Take 1 [facility] nesium/zinc 6-29 Each by ity o f (CALCIUM-MA 00:00: mouth [place] GNESUIUM-ZI 00 daily. Medica l [place]) Branch 333-133-5 mg Tab benzonatate Yes [id number] 100mg Take 1 [facility] 100 mg 6-29 capsule by ity of capsule 00:00: mouth 3 [place] 00 (three) Medical times Branch daily as needed for Cough. nirmatrelvi Yes [id number] 3{tbl} Take 3 [facility] r-ritonavir 6-29 tablets by it y of (PAXLOVID, 00:00: mouth 2 [place] EUA,) 150 00 (two) Medical mg x 2- 100 times Branch mg tablet daily. chlorphenir 2021- No [id number] 4mg Take 1 [facility] amine 4 mg 6-29 - tablet by ity of tablet 00:00: 00:00 mouth [place] 00 :00 every 6 Medical (six) Branch hours as needed for Allergies or Runny nose. calcium/mag 2021- No [id number] 1{each} Take 1 [facility] nesium/zinc 6-29 - Each by ity of (CALCIUM-MA 00:00: 00:00 mouth [place] GNESUIUM-ZI 00 :00 daily. Medica l [place]) Branch 333-133-5 mg Tab benzonatate 2021-2021- No [id number] 100mg Take 1 [facility] 100 mg 6-29 09-23 capsule by ity of capsule 00:00: 00:00 mouth 3 [place] 00 :00 (three) Medical times Branch daily as needed for Cough. nirmatrelvi 0 2021- No [id number] 3{tbl} Take 3 [facility] r-ritonavir 6-29 09-23 tablets by i ty of (PAXLOVID, 00:00: 00:00 mouth 2 [place] EUA,) 150 00 :00 (two) Medical mg x 2- 100 times Branch mg tablet daily. chlorphenir 2021- No [id number] 4mg Take 1 [facility] amine 4 mg 11-08 tablet by ity of tablet 00:00: 00:00 mouth [place] 00 :00 every 6 Medical (six) Branch hours as needed for Allergies or Runny nose. calcium/mag 2021- No [id number] 1{each} Take 1 [facility] nesium/zinc 11-08 Each by ity of (CALCIUM-MA 00:00: 00:00 mouth [place] GNESUIUM-ZI 00 :00 daily. Medica l [place]) Branch 333-133-5 mg Tab benzonatate 2021- No [id number] 100mg Take 1 [facility] 100 mg 11-08 capsule by ity of capsule 00:00: 00:00 mouth 3 [place] 00 :00 (three) Medical times Branch daily as needed for Cough. nirmatrelvi 2021- No [id number] 3{tbl} Take 3 [facility] r-ritonavir 11-08 tablets by i ty of (PAXLOVID, 00:00: 00:00 mouth 2 [place] EUA,) 150 00 :00 (two) Medical mg x 2- 100 times Branch mg tablet daily. vitamin 2021- No [id number] 1{tbl} Take 1 [facility] D3-folic 11-0830 tablet by ity o f acid 125 00:00: 04:59 mouth [place] mcg (5,000 00 :00 daily for Medi lula unit)-1 mg 30 days. Branc h Tab mupirocin 2 Yes [id number] Apply to [facility] % ointment 6-15 area(s) 3 ity of 00:00: (three) [place] 00 times Medical daily. Branch mupirocin 2 Yes [id number] Apply to [facility] % ointment 6-15 area(s) 3 ity of 00:00: (three) [place] 00 times Medical daily. Branch mupirocin 2 2022-0 Yes [id number] Apply to [facility] % ointment 6-15 area(s) 3 ity of 00:00: (three) [place] 00 times Medical daily. Branch mupirocin 2 2-0 Yes [id number] Apply to [facility] % ointment 6-15 area(s) 3 ity of 00:00: (three) [place] 00 times Medical daily. Branch mupirocin 2 2-0 Yes [id number] Apply to [facility] % ointment 6-15 area(s) 3 ity of 00:00: (three) [place] 00 times Medical daily. Branch mupirocin 2 2-0 Yes [id number] Apply to [facility] % ointment 6-15 area(s) 3 ity of 00:00: (three) [place] 00 times Medical daily. Branch mupirocin 2 2-0 Yes [id number] Apply to [facility] % ointment 6-15 area(s) 3 ity of 00:00: (three) [place] 00 times Medical daily. Branch mupirocin 2 2021-0 Yes [id number] Apply to [facility] % ointment 6-15 area(s) 3 ity of 00:00: (three) [place] 00 times Medical daily. Branch mupirocin 2 2-0 Yes [id number] Apply to [facility] % ointment 6-15 area(s) 3 ity of 00:00: (three) [place] 00 times Medical daily. Branch mupirocin 2 2-0 Yes [id number] Apply to [facility] % ointment 6-15 area(s) 3 ity of 00:00: (three) [place] 00 times Medical daily. Branch mupirocin 2 2-0 Yes [id number] Apply to [facility] % ointment 6-15 area(s) 3 ity of 00:00: (three) [place] 00 times Medical daily. Branch mupirocin 2 2-0 Yes [id number] Apply to [facility] % ointment 6-15 area(s) 3 ity of 00:00: (three) [place] 00 times Medical daily. Branch mupirocin 2 2-0 Yes [id number] Apply to [facility] % ointment 6-15 area(s) 3 ity of 00:00: (three) [place] 00 times Medical daily. Branch mupirocin 2 2-0 Yes [id number] Apply to [facility] % ointment 6-15 area(s) 3 ity of 00:00: (three) [place] 00 times Medical daily. Branch mupirocin 2 2-0 Yes [id number] Apply to [facility] % ointment 6-15 area(s) 3 ity of 00:00: (three) [place] 00 times Medical daily. Branch mupirocin 2 2-0 Yes [id number] Apply to [facility] % ointment 6-15 area(s) 3 ity of 00:00: (three) [place] 00 times Medical daily. Branch mupirocin 2 2-0 Yes [id number] Apply to [facility] % ointment 6-15 area(s) 3 ity of 00:00: (three) [place] 00 times Medical daily. Branch mupirocin 2 2-0 Yes [id number] Apply to [facility] % ointment 6-15 area(s) 3 ity of 00:00: (three) [place] 00 times Medical daily. Branch mupirocin 2 2021-0 Yes [id number] Apply to [facility] % ointment 6-15 area(s) 3 ity of 00:00: (three) [place] 00 times Medical daily. Branch mupirocin 2 2-0 Yes [id number] Apply to [facility] % ointment 6-15 area(s) 3 ity of 00:00: (three) [place] 00 times Medical daily. Branch mupirocin 2 2-0 Yes [id number] Apply to [facility] % ointment 6-15 area(s) 3 ity of 00:00: (three) [place] 00 times Medical daily. Branch mupirocin 2 2-0 Yes [id number] Apply to [facility] % ointment 6-15 area(s) 3 ity of 00:00: (three) [place] 00 times Medical daily. Branch mupirocin 2 2-0 Yes [id number] Apply to [facility] % ointment 6-15 area(s) 3 ity of 00:00: (three) [place] 00 times Medical daily. Branch mupirocin 2 2-0 Yes [id number] Apply to [facility] % ointment 6-15 area(s) 3 ity of 00:00: (three) [place] 00 times Medical daily. Branch mupirocin 2 2022-0 Yes [id number] Apply to [facility] % ointment 6-15 area(s) 3 ity of 00:00: (three) [place] 00 times Medical daily. Branch mupirocin 2 2-0 Yes [id number] Apply to [facility] % ointment 6-15 area(s) 3 ity of 00:00: (three) [place] 00 times Medical daily. Branch mupirocin 2 2-0 Yes [id number] Apply to [facility] % ointment 6-15 area(s) 3 ity of 00:00: (three) [place] 00 times Medical daily. Branch mupirocin 2 2-0 Yes [id number] Apply to [facility] % ointment 6-15 area(s) 3 ity of 00:00: (three) [place] 00 times Medical daily. Branch mupirocin 2 2-0 Yes [id number] Apply to [facility] % ointment 6-15 area(s) 3 ity of 00:00: (three) [place] 00 times Medical daily. Branch mupirocin 2 2-0 Yes [id number] Apply to [facility] % ointment 6-15 area(s) 3 ity of 00:00: (three) [place] 00 times Medical daily. Branch mupirocin 2 2-0 Yes [id number] Apply to [facility] % ointment 6-15 area(s) 3 ity of 00:00: (three) [place] 00 times Medical daily. Branch mupirocin 2 2-0 Yes [id number] Apply to [facility] % ointment 6-15 area(s) 3 ity of 00:00: (three) [place] 00 times Medical daily. Branch mupirocin 2 2-0 Yes [id number] Apply to [facility] % ointment 6-15 area(s) 3 ity of 00:00: (three) [place] 00 times Medical daily. Branch mupirocin 2 2022-0 Yes [id number] Apply to [facility] % ointment 6-15 area(s) 3 ity of 00:00: (three) [place] 00 times Medical daily. Branch mupirocin 2 2-0 Yes [id number] Apply to [facility] % ointment 6-15 area(s) 3 ity of 00:00: (three) [place] 00 times Medical daily. Branch mupirocin 2 2022-0 Yes [id number] Apply to [facility] % ointment 6-15 area(s) 3 ity of 00:00: (three) [place] 00 times Medical daily. Branch mupirocin 2 2-0 Yes [id number] Apply to [facility] % ointment 6-15 area(s) 3 ity of 00:00: (three) [place] 00 times Medical daily. Branch mupirocin 2 2-0 Yes [id number] Apply to [facility] % ointment 6-15 area(s) 3 ity of 00:00: (three) [place] 00 times Medical daily. Branch mupirocin 2 2022-0 Yes [id number] Apply to [facility] % ointment 6-15 area(s) 3 ity of 00:00: (three) [place] 00 times Medical daily. Branch mupirocin 2 2022-0 Yes [id number] Apply to [facility] % ointment 6-15 area(s) 3 ity of 00:00: (three) [place] 00 times Medical daily. Branch mupirocin 2 2-0 Yes [id number] Apply to [facility] % ointment 6-15 area(s) 3 ity of 00:00: (three) [place] 00 times Medical daily. Branch mupirocin 2 2-0 Yes [id number] Apply to [facility] % ointment 6-15 area(s) 3 ity of 00:00: (three) [place] 00 times Medical daily. Branch mupirocin 2 2022-0 Yes [id number] Apply to [facility] % ointment 6-15 area(s) 3 ity of 00:00: (three) [place] 00 times Medical daily. Branch mupirocin 2 2022-0 Yes [id number] Apply to [facility] % ointment 6-15 area(s) 3 ity of 00:00: (three) [place] 00 times Medical daily. Branch mupirocin 2 2022-0 Yes [id number] Apply to [facility] % ointment 6-15 area(s) 3 ity of 00:00: (three) [place] 00 times Medical daily. Branch mupirocin 2 2022-0 Yes [id number] Apply to [facility] % ointment 6-15 area(s) 3 ity of 00:00: (three) [place] 00 times Medical daily. Branch mupirocin 2 2-0 Yes [id number] Apply to [facility] % ointment 6-15 area(s) 3 ity of 00:00: (three) [place] 00 times Medical daily. Branch mupirocin 2 2-0 Yes [id number] Apply to [facility] % ointment 6-15 area(s) 3 ity of 00:00: (three) [place] 00 times Medical daily. Branch mupirocin 2 2021-0 Yes [id number] Apply to [facility] % ointment 6-15 area(s) 3 ity of 00:00: (three) [place] 00 times Medical daily. Branch mupirocin 2 2-0 Yes [id number] Apply to [facility] % ointment 6-15 area(s) 3 ity of 00:00: (three) [place] 00 times Medical daily. Branch mupirocin 2 2021-0 Yes [id number] Apply to [facility] % ointment 6-15 area(s) 3 ity of 00:00: (three) [place] 00 times Medical daily. Branch mupirocin 2 2021-0 Yes [id number] Apply to [facility] % ointment 6-15 area(s) 3 ity of 00:00: (three) [place] 00 times Medical daily. Branch mupirocin 2 2021-0 Yes [id number] Apply to [facility] % ointment 6-15 area(s) 3 ity of 00:00: (three) [place] 00 times Medical daily. Branch mupirocin 2 2-0 Yes [id number] Apply to [facility] % ointment 6-15 area(s) 3 ity of 00:00: (three) [place] 00 times Medical daily. Branch mupirocin 2 2-0 Yes [id number] Apply to [facility] % ointment 6-15 area(s) 3 ity of 00:00: (three) [place] 00 times Medical daily. Branch mupirocin 2 2-0 Yes [id number] Apply to [facility] % ointment 6-15 area(s) 3 ity of 00:00: (three) [place] 00 times Medical daily. Branch mupirocin 2 2-0 Yes [id number] Apply to [facility] % ointment 6-15 area(s) 3 ity of 00:00: (three) [place] 00 times Medical daily. Branch mupirocin 2 2-0 Yes [id number] Apply to [facility] % ointment 6-15 area(s) 3 ity of 00:00: (three) [place] 00 times Medical daily. Branch mupirocin 2 2-0 Yes [id number] Apply to [facility] % ointment 6-15 area(s) 3 ity of 00:00: (three) [place] 00 times Medical daily. Branch mupirocin 2 2-0 Yes [id number] Apply to [facility] % ointment 6-15 area(s) 3 ity of 00:00: (three) [place] 00 times Medical daily. Branch mupirocin 2 2-0 Yes [id number] Apply to [facility] % ointment 6-15 area(s) 3 ity of 00:00: (three) [place] 00 times Medical daily. Branch mupirocin 2 2021-0 Yes [id number] Apply to [facility] % ointment 6-15 area(s) 3 ity of 00:00: (three) [place] 00 times Medical daily. Branch mupirocin 2 2021-0 Yes [id number] Apply to [facility] % ointment 6-15 area(s) 3 ity of 00:00: (three) [place] 00 times Medical daily. Branch mupirocin 2 2021-0 Yes [id number] Apply to [facility] % ointment 6-15 area(s) 3 ity of 00:00: (three) [place] 00 times Medical daily. Branch mupirocin 2 2-0 Yes [id number] Apply to [facility] % ointment 6-15 area(s) 3 ity of 00:00: (three) [place] 00 times Medical daily. Branch mupirocin 2 2-0 Yes [id number] Apply to [facility] % ointment 6-15 area(s) 3 ity of 00:00: (three) [place] 00 times Medical daily. Branch mupirocin 2 2-0 Yes [id number] Apply to [facility] % ointment 6-15 area(s) 3 ity of 00:00: (three) [place] 00 times Medical daily. Branch mupirocin 2 2-0 Yes [id number] Apply to [facility] % ointment 6-15 area(s) 3 ity of 00:00: (three) [place] 00 times Medical daily. Branch mupirocin 2 2-0 Yes [id number] Apply to [facility] % ointment 6-15 area(s) 3 ity of 00:00: (three) [place] 00 times Medical daily. Branch mupirocin 2 2-0 Yes [id number] Apply to [facility] % ointment 6-15 area(s) 3 ity of 00:00: (three) [place] 00 times Medical daily. Branch mupirocin 2 2021-0 Yes [id number] Apply to [facility] % ointment 6-15 area(s) 3 ity of 00:00: (three) [place] 00 times Medical daily. Branch mupirocin 2 2021-0 Yes [id number] Apply to [facility] % ointment 6-15 area(s) 3 ity of 00:00: (three) [place] 00 times Medical daily. Branch mupirocin 2 2021-0 Yes [id number] Apply to [facility] % ointment 6-15 area(s) 3 ity of 00:00: (three) [place] 00 times Medical daily. Branch mupirocin 2 2021-0 Yes [id number] Apply to [facility] % ointment 6-15 area(s) 3 ity of 00:00: (three) [place] 00 times Medical daily. Branch mupirocin 2 2021-0 Yes [id number] Apply to [facility] % ointment 6-15 area(s) 3 ity of 00:00: (three) [place] 00 times Medical daily. Branch mupirocin 2 2021-0 Yes [id number] Apply to [facility] % ointment 6-15 area(s) 3 ity of 00:00: (three) [place] 00 times Medical daily. Branch mupirocin 2 2-0 Yes [id number] Apply to [facility] % ointment 6-15 area(s) 3 ity of 00:00: (three) [place] 00 times Medical daily. Branch mupirocin 2 2-0 Yes [id number] Apply to [facility] % ointment 6-15 area(s) 3 ity of 00:00: (three) [place] 00 times Medical daily. Branch mupirocin 2 2-0 Yes [id number] Apply to [facility] % ointment 6-15 area(s) 3 ity of 00:00: (three) [place] 00 times Medical daily. Branch mupirocin 2 2-0 Yes [id number] Apply to [facility] % ointment 6-15 area(s) 3 ity of 00:00: (three) [place] 00 times Medical daily. Branch mupirocin 2 2021-0 Yes [id number] Apply to [facility] % ointment 6-15 area(s) 3 ity of 00:00: (three) [place] 00 times Medical daily. Branch mupirocin 2 2021-0 Yes [id number] Apply to [facility] % ointment 6-15 area(s) 3 ity of 00:00: (three) [place] 00 times Medical daily. Branch mupirocin 2 2021-0 Yes [id number] Apply to [facility] % ointment 6-15 area(s) 3 ity of 00:00: (three) [place] 00 times Medical daily. Branch mupirocin 2 2021-0 Yes [id number] Apply to [facility] % ointment 6-15 area(s) 3 ity of 00:00: (three) [place] 00 times Medical daily. Branch mupirocin 2 2021-0 Yes [id number] Apply to [facility] % ointment 6-15 area(s) 3 ity of 00:00: (three) [place] 00 times Medical daily. Branch mupirocin 2 2021-0 Yes [id number] Apply to [facility] % ointment 6-15 area(s) 3 ity of 00:00: (three) [place] 00 times Medical daily. Branch mupirocin 2 2-0 Yes [id number] Apply to [facility] % ointment 6-15 area(s) 3 ity of 00:00: (three) [place] 00 times Medical daily. Branch mupirocin 2 2-0 Yes [id number] Apply to [facility] % ointment 6-15 area(s) 3 ity of 00:00: (three) [place] 00 times Medical daily. Branch mupirocin 2 2-0 Yes [id number] Apply to [facility] % ointment 6-15 area(s) 3 ity of 00:00: (three) [place] 00 times Medical daily. Branch mupirocin 2 2-0 Yes [id number] Apply to [facility] % ointment 6-15 area(s) 3 ity of 00:00: (three) [place] 00 times Medical daily. Branch mupirocin 2 2021-0 Yes [id number] Apply to [facility] % ointment 6-15 area(s) 3 ity of 00:00: (three) [place] 00 times Medical daily. Branch mupirocin 2 2021-0 Yes [id number] Apply to [facility] % ointment 6-15 area(s) 3 ity of 00:00: (three) [place] 00 times Medical daily. Branch mupirocin 2 2021-0 Yes [id number] Apply to [facility] % ointment 6-15 area(s) 3 ity of 00:00: (three) [place] 00 times Medical daily. Branch mupirocin 2 2021-0 Yes [id number] Apply to [facility] % ointment 6-15 area(s) 3 ity of 00:00: (three) [place] 00 times Medical daily. Branch mupirocin 2 2021-0 3- No [id number] Apply to [facility] % ointment 6-15 08-23 area(s) 3 ity of 00:00: 00:00 (three) [place] 00 :00 times Medical daily. Branch mupirocin 2 2021-0 3- No [id number] Apply to [facility] % ointment 6-15 08-23 area(s) 3 ity of 00:00: 00:00 (three) [place] 00 :00 times Medical daily. Branch isosorbide 2-0 Yes [id number] 60mg Take 1 [facility] nivers mononitrate 5-05 tablet by ity of 60 mg 24 hr 00:00: mouth [place] tablet 00 daily. Medical Branch isosorbide 2022-0 Yes [id number] 60mg Take 1 U nivers mononitrate 5-05 tablet by ity of 60 mg 24 hr 00:00: mouth [place] tablet 00 daily. Medical Branch isosorbide 2022-0 Yes [id number] 60mg Take 1 U nivers mononitrate 5-05 tablet by ity of 60 mg 24 hr 00:00: mouth [place] tablet 00 daily. Medical Branch isosorbide 2022-0 Yes [id number] 60mg Take 1 U nivers mononitrate 5-05 tablet by ity of 60 mg 24 hr 00:00: mouth [place] tablet 00 daily. Medical Branch isosorbide 2021-0 Yes [id number] 60mg Take 1 U nivers mononitrate 5-05 tablet by ity of 60 mg 24 hr 00:00: mouth [place] tablet 00 daily. Medical Branch isosorbide 2021-0 Yes [id number] 60mg Take 1 U nivers mononitrate 5-05 tablet by ity of 60 mg 24 hr 00:00: mouth [place] tablet 00 daily. Medical Branch isosorbide 2021-0 Yes [id number] 60mg Take 1 U nivers mononitrate 5-05 tablet by ity of 60 mg 24 hr 00:00: mouth [place] tablet 00 daily. Medical Branch isosorbide 2021-0 Yes [id number] 60mg Take 1 U nivers mononitrate 5-05 tablet by ity of 60 mg 24 hr 00:00: mouth [place] tablet 00 daily. Medical Branch isosorbide 2021-0 Yes [id number] 60mg Take 1 U nivers mononitrate 5-05 tablet by ity of 60 mg 24 hr 00:00: mouth [place] tablet 00 daily. Medical Branch isosorbide 2021-0 Yes [id number] 60mg Take 1 [facility] mononitrate 5-05 tablet by ity of 60 mg 24 hr 00:00: mouth [place] tablet 00 daily. [facility] isosorbide 2021-0 Yes [id number] 60mg Take 1 [facility] mononitrate 5-05 tablet by ity of 60 mg 24 hr 00:00: mouth [place] tablet 00 daily. [facility] isosorbide 2-0 Yes [id number] 60mg Take 1 [facility] mononitrate 5-05 tablet by ity of 60 mg 24 hr 00:00: mouth [place] tablet 00 daily. [facility] isosorbide 2-0 Yes [id number] 60mg Take 1 [facility] mononitrate 5-05 tablet by ity of 60 mg 24 hr 00:00: mouth [place] tablet 00 daily. [facility] isosorbide 2-0 Yes [id number] 60mg Take 1 [facility] mononitrate 5-05 tablet by ity of 60 mg 24 hr 00:00: mouth [place] tablet 00 daily. [facility] isosorbide 2-0 Yes [id number] 60mg Take 1 [facility] mononitrate 5-05 tablet by ity of 60 mg 24 hr 00:00: mouth [place] tablet 00 daily. [facility] isosorbide 2-0 Yes [id number] 60mg Take 1 [facility] mononitrate 5-05 tablet by ity of 60 mg 24 hr 00:00: mouth [place] tablet 00 daily. [facility] isosorbide 2021-0 Yes [id number] 60mg Take 1 [facility] mononitrate 5-05 tablet by ity of 60 mg 24 hr 00:00: mouth [place] tablet 00 daily. [facility] isosorbide 2021-0 Yes [id number] 60mg Take 1 [facility] mononitrate 5-05 tablet by ity of 60 mg 24 hr 00:00: mouth [place] tablet 00 daily. [facility] isosorbide 2021-0 Yes [id number] 60mg Take 1 [facility] mononitrate 5-05 tablet by ity of 60 mg 24 hr 00:00: mouth [place] tablet 00 daily. [facility] isosorbide 2021-0 Yes [id number] 60mg Take 1 [facility] mononitrate 5-05 tablet by ity of 60 mg 24 hr 00:00: mouth [place] tablet 00 daily. [facility] isosorbide 2021-0 Yes [id number] 60mg Take 1 [facility] mononitrate 5-05 tablet by ity of 60 mg 24 hr 00:00: mouth [place] tablet 00 daily. [facility] isosorbide 2021-0 Yes [id number] 60mg Take 1 [facility] mononitrate 5-05 tablet by ity of 60 mg 24 hr 00:00: mouth [place] tablet 00 daily. [facility] isosorbide 2-0 Yes [id number] 60mg Take 1 [facility] mononitrate 5-05 tablet by ity of 60 mg 24 hr 00:00: mouth [place] tablet 00 daily. [facility] isosorbide 2-0 Yes [id number] 60mg Take 1 [facility] mononitrate 5-05 tablet by ity of 60 mg 24 hr 00:00: mouth [place] tablet 00 daily. [facility] isosorbide 2-0 Yes [id number] 60mg Take 1 [facility] mononitrate 5-05 tablet by ity of 60 mg 24 hr 00:00: mouth [place] tablet 00 daily. [facility] isosorbide 2-0 Yes [id number] 60mg Take 1 [facility] mononitrate 5-05 tablet by ity of 60 mg 24 hr 00:00: mouth [place] tablet 00 daily. [facility] isosorbide 2-0 Yes [id number] 60mg Take 1 [facility] mononitrate 5-05 tablet by ity of 60 mg 24 hr 00:00: mouth [place] tablet 00 daily. [facility] isosorbide 2-0 Yes [id number] 60mg Take 1 [facility] mononitrate 5-05 tablet by ity of 60 mg 24 hr 00:00: mouth [place] tablet 00 daily. [facility] isosorbide 2021-0 Yes [id number] 60mg Take 1 [facility] mononitrate 5-05 tablet by ity of 60 mg 24 hr 00:00: mouth [place] tablet 00 daily. [facility] isosorbide 2021-0 Yes [id number] 60mg Take 1 [facility] mononitrate 5-05 tablet by ity of 60 mg 24 hr 00:00: mouth [place] tablet 00 daily. [facility] isosorbide 2021-0 Yes [id number] 60mg Take 1 [facility] mononitrate 5-05 tablet by ity of 60 mg 24 hr 00:00: mouth [place] tablet 00 daily. [facility] isosorbide 2021-0 Yes [id number] 60mg Take 1 [facility] mononitrate 5-05 tablet by ity of 60 mg 24 hr 00:00: mouth [place] tablet 00 daily. [facility] isosorbide 2021-0 Yes [id number] 60mg Take 1 [facility] mononitrate 5-05 tablet by ity of 60 mg 24 hr 00:00: mouth [place] tablet 00 daily. [facility] isosorbide 2-0 Yes [id number] 60mg Take 1 [facility] mononitrate 5-05 tablet by ity of 60 mg 24 hr 00:00: mouth [place] tablet 00 daily. [facility] isosorbide 2-0 Yes [id number] 60mg Take 1 [facility] mononitrate 5-05 tablet by ity of 60 mg 24 hr 00:00: mouth [place] tablet 00 daily. [facility] isosorbide 2-0 Yes [id number] 60mg Take 1 [facility] mononitrate 5-05 tablet by ity of 60 mg 24 hr 00:00: mouth [place] tablet 00 daily. [facility] isosorbide 2-0 Yes [id number] 60mg Take 1 [facility] mononitrate 5-05 tablet by ity of 60 mg 24 hr 00:00: mouth [place] tablet 00 daily. [facility] isosorbide 2021-0 Yes [id number] 60mg Take 1 [facility] mononitrate 5-05 tablet by ity of 60 mg 24 hr 00:00: mouth [place] tablet 00 daily. [facility] isosorbide 2021-0 Yes [id number] 60mg Take 1 [facility] mononitrate 5-05 tablet by ity of 60 mg 24 hr 00:00: mouth [place] tablet 00 daily. [facility] isosorbide 2021-0 Yes [id number] 60mg Take 1 [facility] mononitrate 5-05 tablet by ity of 60 mg 24 hr 00:00: mouth [place] tablet 00 daily. [facility] isosorbide 2021-0 Yes [id number] 60mg Take 1 [facility] mononitrate 5-05 tablet by ity of 60 mg 24 hr 00:00: mouth [place] tablet 00 daily. [facility] isosorbide 2021-0 Yes [id number] 60mg Take 1 [facility] mononitrate 5-05 tablet by ity of 60 mg 24 hr 00:00: mouth [place] tablet 00 daily. [facility] isosorbide 2021-0 Yes [id number] 60mg Take 1 [facility] mononitrate 5-05 tablet by ity of 60 mg 24 hr 00:00: mouth [place] tablet 00 daily. [facility] isosorbide 2021-0 Yes [id number] 60mg Take 1 [facility] mononitrate 5-05 tablet by ity of 60 mg 24 hr 00:00: mouth [place] tablet 00 daily. [facility] isosorbide 2-0 Yes [id number] 60mg Take 1 [facility] mononitrate 5-05 tablet by ity of 60 mg 24 hr 00:00: mouth [place] tablet 00 daily. [facility] isosorbide 2-0 Yes [id number] 60mg Take 1 [facility] mononitrate 5-05 tablet by ity of 60 mg 24 hr 00:00: mouth [place] tablet 00 daily. [facility] isosorbide 2-0 Yes [id number] 60mg Take 1 [facility] mononitrate 5-05 tablet by ity of 60 mg 24 hr 00:00: mouth [place] tablet 00 daily. [facility] isosorbide 2-0 Yes [id number] 60mg Take 1 [facility] mononitrate 5-05 tablet by ity of 60 mg 24 hr 00:00: mouth [place] tablet 00 daily. [facility] isosorbide 2021-0 Yes [id number] 60mg Take 1 [facility] mononitrate 5-05 tablet by ity of 60 mg 24 hr 00:00: mouth [place] tablet 00 daily. [facility] isosorbide 2021-0 Yes [id number] 60mg Take 1 [facility] mononitrate 5-05 tablet by ity of 60 mg 24 hr 00:00: mouth [place] tablet 00 daily. [facility] isosorbide 2021-0 Yes [id number] 60mg Take 1 [facility] mononitrate 5-05 tablet by ity of 60 mg 24 hr 00:00: mouth [place] tablet 00 daily. [facility] isosorbide 2021-0 Yes [id number] 60mg Take 1 [facility] mononitrate 5-05 tablet by ity of 60 mg 24 hr 00:00: mouth [place] tablet 00 daily. [facility] isosorbide 2021-0 Yes [id number] 60mg Take 1 [facility] mononitrate 5-05 tablet by ity of 60 mg 24 hr 00:00: mouth [place] tablet 00 daily. [facility] isosorbide 2021-0 Yes [id number] 60mg Take 1 [facility] mononitrate 5-05 tablet by ity of 60 mg 24 hr 00:00: mouth [place] tablet 00 daily. [facility] isosorbide 2-0 Yes [id number] 60mg Take 1 [facility] mononitrate 5-05 tablet by ity of 60 mg 24 hr 00:00: mouth [place] tablet 00 daily. [facility] isosorbide 2-0 Yes [id number] 60mg Take 1 [facility] mononitrate 5-05 tablet by ity of 60 mg 24 hr 00:00: mouth [place] tablet 00 daily. [facility] isosorbide 2-0 Yes [id number] 60mg Take 1 [facility] mononitrate 5-05 tablet by ity of 60 mg 24 hr 00:00: mouth [place] tablet 00 daily. [facility] isosorbide 2-0 Yes [id number] 60mg Take 1 [facility] mononitrate 5-05 tablet by ity of 60 mg 24 hr 00:00: mouth [place] tablet 00 daily. [facility] isosorbide 2-0 Yes [id number] 60mg Take 1 [facility] mononitrate 5-05 tablet by ity of 60 mg 24 hr 00:00: mouth [place] tablet 00 daily. [facility] isosorbide 2-0 Yes [id number] 60mg Take 1 [facility] mononitrate 5-05 tablet by ity of 60 mg 24 hr 00:00: mouth [place] tablet 00 daily. [facility] isosorbide 2-0 Yes [id number] 60mg Take 1 [facility] mononitrate 5-05 tablet by ity of 60 mg 24 hr 00:00: mouth [place] tablet 00 daily. [facility] isosorbide 2-0 Yes [id number] 60mg Take 1 [facility] mononitrate 5-05 tablet by ity of 60 mg 24 hr 00:00: mouth [place] tablet 00 daily. [facility] isosorbide 2-0 Yes [id number] 60mg Take 1 [facility] mononitrate 5-05 tablet by ity of 60 mg 24 hr 00:00: mouth [place] tablet 00 daily. [facility] isosorbide 2-0 Yes [id number] 60mg Take 1 [facility] mononitrate 5-05 tablet by ity of 60 mg 24 hr 00:00: mouth [place] tablet 00 daily. [facility] isosorbide 2-0 Yes [id number] 60mg Take 1 [facility] mononitrate 5-05 tablet by ity of 60 mg 24 hr 00:00: mouth [place] tablet 00 daily. [facility] isosorbide 2-0 3- No [id number] 60mg Take 1 [facility] mononitrate 5-05 07-19 tablet by it y of 60 mg 24 hr 00:00: 00:00 [place] 00 :00 daily. [facility] isosorbide 2-0 3- No [id number] 60mg Take 1 [facility] mononitrate 5-05 07-19 tablet by it y of 60 mg 24 hr 00:00: 00:[place] [facility] [place] 00 :00 daily. [facility] isosorbide 2-0 3- No [id number] 60mg Take 1 [facility] mononitrate 5-05 07-19 tablet by it y of 60 mg 24 hr 00:00: 00:00 [place] 00 :00 daily. [facility] isosorbide 2023- No [id number] 60mg Take 1 [facility] mononitrate 5-05 07-19 tablet by it y of 60 mg 24 hr 00:00: 00:00 [place] 00 :00 daily. [facility] budesonide- Yes [id number] 2{puff} Inhale 2 [facility] formoteroL 4-26 Puffs 2 ity of (SYMBICORT) 00:00: (two) [place] 160-4.5 00 times Medical mcg/actuati daily. Branch on inhaler fluticasone Yes [id number] 1{spray Use 1 [facility] propionate 4-26 } [place] in ity o f 50 00:00: each [place] mcg/actuati 00 nostril 2 Med ical on nasal (two) Branch spray times daily. EPINEPHrine Yes ADMINISTER [facility] 0.3 mg/0.3 4-26 0.3 ML IN ity of mL 00:00: THE MUSCLE [place] injection 00 1 TIME NOW Medi lula FOR 1 DOSE Branch budesonide- Yes [id number] 2{puff} Inhale 2 [facility] formoteroL 4-26 Puffs 2 ity of (SYMBICORT) 00:00: (two) [place] 160-4.5 00 times Medical mcg/actuati daily. Branch on inhaler fluticasone Yes [id number] 1{spray Use 1 [facility] propionate 4-26 } [place] in ity o f 50 00:00: each [place] mcg/actuati 00 nostril 2 Med ical on nasal (two) Branch spray times daily. EPINEPHrine Yes ADMINISTER [facility] 0.3 mg/0.3 4-26 0.3 ML IN ity of mL 00:00: THE MUSCLE [place] injection 00 1 TIME NOW Medi lula FOR 1 DOSE Branch budesonide- Yes [id number] 2{puff} Inhale 2 [facility] formoteroL 4-26 Puffs 2 ity of (SYMBICORT) 00:00: (two) [place] 160-4.5 00 times Medical mcg/actuati daily. Branch on inhaler fluticasone Yes [id number] 1{spray Use 1 [facility] propionate 4-26 } [place] in ity o f 50 00:00: each [place] mcg/actuati 00 nostril 2 Med ical on nasal (two) Branch spray times daily. EPINEPHrine 2021-0 Yes ADMINISTER [facility] 0.3 mg/0.3 4-26 0.3 ML IN ity of mL 00:00: THE MUSCLE [place] injection 00 1 TIME NOW Medi lula FOR 1 DOSE Branch budesonide- 0 Yes [id number] 2{puff} Inhale 2 [facility] formoteroL 4-26 Puffs 2 ity of (SYMBICORT) 00:00: (two) [place] 160-4.5 00 times Medical mcg/actuati daily. Branch on inhaler fluticasone 2021-0 Yes [id number] 1{spray Use 1 [facility] propionate 4-26 } [place] in ity o f 50 00:00: each [place] mcg/actuati 00 nostril 2 Med ical on nasal (two) Branch spray times daily. EPINEPHrine 2021-0 Yes ADMINISTER [facility] 0.3 mg/0.3 4-26 0.3 ML IN ity of mL 00:00: THE MUSCLE [place] injection 00 1 TIME NOW Medi lula FOR 1 DOSE Branch budesonide- 0 Yes [id number] 2{puff} Inhale 2 [facility] formoteroL 4-26 Puffs 2 ity of (SYMBICORT) 00:00: (two) [place] 160-4.5 00 times Medical mcg/actuati daily. Branch on inhaler fluticasone 0 Yes [id number] 1{spray Use 1 [facility] propionate 4-26 } [place] in ity o f 50 00:00: each [place] mcg/actuati 00 nostril 2 Med ical on nasal (two) Branch spray times daily. EPINEPHrine 2021-0 Yes ADMINISTER [facility] 0.3 mg/0.3 4-26 0.3 ML IN ity of mL 00:00: THE MUSCLE [place] injection 00 1 TIME NOW Medi lula FOR 1 DOSE Branch budesonide- 2021-0 Yes [id number] 2{puff} Inhale 2 [facility] formoteroL 4-26 Puffs 2 ity of (SYMBICORT) 00:00: (two) [place] 160-4.5 00 times Medical mcg/actuati daily. Branch on inhaler fluticasone 2021-0 Yes [id number] 1{spray Use 1 [facility] propionate 4-26 } [place] in ity o f 50 00:00: each [place] mcg/actuati 00 nostril 2 Med ical on nasal (two) Branch spray times daily. EPINEPHrine 2021-0 Yes ADMINISTER [facility] 0.3 mg/0.3 4-26 0.3 ML IN ity of mL 00:00: THE MUSCLE [place] injection 00 1 TIME NOW Medi lula FOR 1 DOSE Branch budesonide- 2021-0 Yes [id number] 2{puff} Inhale 2 [facility] formoteroL 4-26 Puffs 2 ity of (SYMBICORT) 00:00: (two) [place] 160-4.5 00 times Medical mcg/actuati daily. Branch on inhaler fluticasone 2021-0 Yes [id number] 1{spray Use 1 [facility] propionate 4-26 } [place] in ity o f 50 00:00: each [place] mcg/actuati 00 nostril 2 Med ical on nasal (two) Branch spray times daily. EPINEPHrine 2021- Yes ADMINISTER [facility] 0.3 mg/0.3 4-26 0.3 ML IN ity of mL 00:00: THE MUSCLE [place] injection 00 1 TIME NOW Medi lula FOR 1 DOSE Branch budesonide- 2021-0 Yes [id number] 2{puff} Inhale 2 [facility] formoteroL 4-26 Puffs 2 ity of (SYMBICORT) 00:00: (two) [place] 160-4.5 00 times Medical mcg/actuati daily. Branch on inhaler fluticasone 2021-0 Yes [id number] 1{spray Use 1 [facility] propionate 4-26 } [place] in ity o f 50 00:00: each [place] mcg/actuati 00 nostril 2 Med ical on nasal (two) Branch spray times daily. EPINEPHrine 2021-0 Yes ADMINISTER [facility] 0.3 mg/0.3 4-26 0.3 ML IN ity of mL 00:00: THE MUSCLE [place] injection 00 1 TIME NOW Medi lula FOR 1 DOSE Branch budesonide- 2021-0 Yes [id number] 2{puff} Inhale 2 [facility] formoteroL 4-26 Puffs 2 ity of (SYMBICORT) 00:00: (two) [place] 160-4.5 00 times Medical mcg/actuati daily. Branch on inhaler fluticasone 2021-0 Yes [id number] 1{spray Use 1 [facility] propionate 4-26 } [place] in ity o f 50 00:00: each [place] mcg/actuati 00 nostril 2 Med ical on nasal (two) Branch spray times daily. EPINEPHrine 2021-0 Yes ADMINISTER [facility] 0.3 mg/0.3 4-26 0.3 ML IN ity of mL 00:00: THE MUSCLE [place] injection 00 1 TIME NOW Medi lula FOR 1 DOSE Branch budesonide- 2021-0 Yes [id number] 2{puff} Inhale 2 [facility] formoteroL 4-26 Puffs 2 ity of (SYMBICORT) 00:00: (two) [place] 160-4.5 00 times Medical mcg/actuati daily. Branch on inhaler fluticasone 2021-0 Yes [id number] 1{spray Use 1 [facility] propionate 4-26 } [place] in ity o f 50 00:00: each [place] mcg/actuati 00 nostril 2 Med ical on nasal (two) Branch spray times daily. EPINEPHrine 2021-0 Yes ADMINISTER [facility] 0.3 mg/0.3 4-26 0.3 ML IN ity of mL 00:00: THE MUSCLE [place] injection 00 1 TIME NOW Medi lula FOR 1 DOSE Branch budesonide- 2021-0 Yes [id number] 2{puff} Inhale 2 [facility] formoteroL 4-26 Puffs 2 ity of (SYMBICORT) 00:00: (two) [place] 160-4.5 00 times Medical mcg/actuati daily. Branch on inhaler fluticasone 2021-0 Yes [id number] 1{spray Use 1 [facility] propionate 4-26 } [place] in ity o f 50 00:00: each [place] mcg/actuati 00 nostril 2 Med ical on nasal (two) Branch spray times daily. EPINEPHrine 2021-0 Yes ADMINISTER [facility] 0.3 mg/0.3 4-26 0.3 ML IN ity of mL 00:00: THE MUSCLE [place] injection 00 1 TIME NOW Medi lula FOR 1 DOSE Branch budesonide- 2021-0 Yes [id number] 2{puff} Inhale 2 [facility] formoteroL 4-26 Puffs 2 ity of (SYMBICORT) 00:00: (two) [place] 160-4.5 00 times Medical mcg/actuati daily. Branch on inhaler fluticasone 2022-0 Yes [id number] 1{spray Use 1 [facility] propionate 4-26 } [place] in ity o f 50 00:00: each [place] mcg/actuati 00 nostril 2 Med ical on nasal (two) Branch spray times daily. EPINEPHrine 2021-0 Yes ADMINISTER [facility] 0.3 mg/0.3 4-26 0.3 ML IN ity of mL 00:00: THE MUSCLE [place] injection 00 1 TIME NOW Medi lula FOR 1 DOSE Branch budesonide- 0 Yes [id number] 2{puff} Inhale 2 [facility] formoteroL 4-26 Puffs 2 ity of (SYMBICORT) 00:00: (two) [place] 160-4.5 00 times Medical mcg/actuati daily. Branch on inhaler fluticasone Yes [id number] 1{spray Use 1 [facility] propionate 4-26 } [place] in ity o f 50 00:00: each [place] mcg/actuati 00 nostril 2 Med ical on nasal (two) Branch spray times daily. EPINEPHrine Yes ADMINISTER [facility] 0.3 mg/0.3 4-26 0.3 ML IN ity of mL 00:00: THE MUSCLE [place] injection 00 1 TIME NOW Medi lula FOR 1 DOSE Branch budesonide- 0 Yes [id number] 2{puff} Inhale 2 [facility] formoteroL 4-26 Puffs 2 ity of (SYMBICORT) 00:00: (two) [place] 160-4.5 00 times Medical mcg/actuati daily. Branch on inhaler fluticasone 2021-0 Yes [id number] 1{spray Use 1 [facility] propionate 4-26 } [place] in ity o f 50 00:00: each [place] mcg/actuati 00 nostril 2 Med ical on nasal (two) Branch spray times daily. EPINEPHrine 2021-0 Yes ADMINISTER [facility] 0.3 mg/0.3 4-26 0.3 ML IN ity of mL 00:00: THE MUSCLE [place] injection 00 1 TIME NOW Medi lula FOR 1 DOSE Branch budesonide- 0 Yes [id number] 2{puff} Inhale 2 [facility] formoteroL 4-26 Puffs 2 ity of (SYMBICORT) 00:00: (two) [place] 160-4.5 00 times Medical mcg/actuati daily. Branch on inhaler fluticasone Yes [id number] 1{spray Use 1 [facility] propionate 4-26 } [place] in ity o f 50 00:00: each [place] mcg/actuati 00 nostril 2 Med ical on nasal (two) Branch spray times daily. EPINEPHrine Yes ADMINISTER [facility] 0.3 mg/0.3 4-26 0.3 ML IN ity of mL 00:00: THE MUSCLE [place] injection 00 1 TIME NOW Medi lula FOR 1 DOSE Branch budesonide- 0 Yes [id number] 2{puff} Inhale 2 [facility] formoteroL 4-26 Puffs 2 ity of (SYMBICORT) 00:00: (two) [place] 160-4.5 00 times Medical mcg/actuati daily. Branch on inhaler fluticasone Yes [id number] 1{spray Use 1 [facility] propionate 4-26 } [place] in ity o f 50 00:00: each [place] mcg/actuati 00 nostril 2 Med ical on nasal (two) Branch spray times daily. EPINEPHrine Yes ADMINISTER [facility] 0.3 mg/0.3 4-26 0.3 ML IN ity of mL 00:00: THE MUSCLE [place] injection 00 1 TIME NOW Medi lula FOR 1 DOSE Branch budesonide- 0 Yes [id number] 2{puff} Inhale 2 [facility] formoteroL 4-26 Puffs 2 ity of (SYMBICORT) 00:00: (two) [place] 160-4.5 00 times Medical mcg/actuati daily. Branch on inhaler fluticasone 0 Yes [id number] 1{spray Use 1 [facility] propionate 4-26 } [place] in ity o f 50 00:00: each [place] mcg/actuati 00 nostril 2 Med ical on nasal (two) Branch spray times daily. EPINEPHrine 2021-0 Yes ADMINISTER [facility] 0.3 mg/0.3 4-26 0.3 ML IN ity of mL 00:00: THE MUSCLE [place] injection 00 1 TIME NOW Medi lula FOR 1 DOSE Branch budesonide- 0 Yes [id number] 2{puff} Inhale 2 [facility] formoteroL 4-26 Puffs 2 ity of (SYMBICORT) 00:00: (two) [place] 160-4.5 00 times Medical mcg/actuati daily. Branch on inhaler fluticasone 2021-0 Yes [id number] 1{spray Use 1 [facility] propionate 4-26 } [place] in ity o f 50 00:00: each [place] mcg/actuati 00 nostril 2 Med ical on nasal (two) Branch spray times daily. EPINEPHrine 2021-0 Yes ADMINISTER [facility] 0.3 mg/0.3 4-26 0.3 ML IN ity of mL 00:00: THE MUSCLE [place] injection 00 1 TIME NOW Medi lula FOR 1 DOSE Branch budesonide- 2021-0 Yes [id number] 2{puff} Inhale 2 [facility] formoteroL 4-26 Puffs 2 ity of (SYMBICORT) 00:00: (two) [place] 160-4.5 00 times Medical mcg/actuati daily. Branch on inhaler fluticasone 0 Yes [id number] 1{spray Use 1 [facility] propionate 4-26 } [place] in ity o f 50 00:00: each [place] mcg/actuati 00 nostril 2 Med ical on nasal (two) Branch spray times daily. EPINEPHrine 2021-0 Yes ADMINISTER [facility] 0.3 mg/0.3 4-26 0.3 ML IN ity of mL 00:00: THE MUSCLE [place] injection 00 1 TIME NOW Medi lula FOR 1 DOSE Branch budesonide- 0 Yes [id number] 2{puff} Inhale 2 [facility] formoteroL 4-26 Puffs 2 ity of (SYMBICORT) 00:00: (two) [place] 160-4.5 00 times Medical mcg/actuati daily. Branch on inhaler fluticasone 2021-0 Yes [id number] 1{spray Use 1 [facility] propionate 4-26 } [place] in ity o f 50 00:00: each [place] mcg/actuati 00 nostril 2 Med ical on nasal (two) Branch spray times daily. EPINEPHrine 2021-0 Yes ADMINISTER [facility] 0.3 mg/0.3 4-26 0.3 ML IN ity of mL 00:00: THE MUSCLE [place] injection 00 1 TIME NOW Medi lula FOR 1 DOSE Branch budesonide- 2021-0 Yes [id number] 2{puff} Inhale 2 [facility] formoteroL 4-26 Puffs 2 ity of (SYMBICORT) 00:00: (two) [place] 160-4.5 00 times Medical mcg/actuati daily. Branch on inhaler fluticasone 2021-0 Yes [id number] 1{spray Use 1 [facility] propionate 4-26 } [place] in ity o f 50 00:00: each [place] mcg/actuati 00 nostril 2 Med ical on nasal (two) Branch spray times daily. EPINEPHrine 2021-0 Yes ADMINISTER [facility] 0.3 mg/0.3 4-26 0.3 ML IN ity of mL 00:00: THE MUSCLE [place] injection 00 1 TIME NOW Medi lula FOR 1 DOSE Branch budesonide- 2021-0 Yes [id number] 2{puff} Inhale 2 [facility] formoteroL 4-26 Puffs 2 ity of (SYMBICORT) 00:00: (two) [place] 160-4.5 00 times Medical mcg/actuati daily. Branch on inhaler fluticasone 2021-0 Yes [id number] 1{spray Use 1 [facility] propionate 4-26 } [place] in ity o f 50 00:00: each [place] mcg/actuati 00 nostril 2 Med ical on nasal (two) Branch spray times daily. EPINEPHrine 2021-0 Yes ADMINISTER [facility] 0.3 mg/0.3 4-26 0.3 ML IN ity of mL 00:00: THE MUSCLE [place] injection 00 1 TIME NOW Medi lula FOR 1 DOSE Branch budesonide- 2021-0 Yes [id number] 2{puff} Inhale 2 [facility] formoteroL 4-26 Puffs 2 ity of (SYMBICORT) 00:00: (two) [place] 160-4.5 00 times Medical mcg/actuati daily. Branch on inhaler fluticasone 2021-0 Yes [id number] 1{spray Use 1 [facility] propionate 4-26 } [place] in ity o f 50 00:00: each [place] mcg/actuati 00 nostril 2 Med ical on nasal (two) Branch spray times daily. EPINEPHrine 2021-0 Yes ADMINISTER [facility] 0.3 mg/0.3 4-26 0.3 ML IN ity of mL 00:00: THE MUSCLE [place] injection 00 1 TIME NOW Medi lula FOR 1 DOSE Branch budesonide- 2021-0 Yes [id number] 2{puff} Inhale 2 [facility] formoteroL 4-26 Puffs 2 ity of (SYMBICORT) 00:00: (two) [place] 160-4.5 00 times Medical mcg/actuati daily. Branch on inhaler fluticasone 2021-0 Yes [id number] 1{spray Use 1 [facility] propionate 4-26 } [place] in ity o f 50 00:00: each [place] mcg/actuati 00 nostril 2 Med ical on nasal (two) Branch spray times daily. EPINEPHrine 2021-0 Yes ADMINISTER [facility] 0.3 mg/0.3 4-26 0.3 ML IN ity of mL 00:00: THE MUSCLE [place] injection 00 1 TIME NOW Medi lula FOR 1 DOSE Branch budesonide- 0 Yes [id number] 2{puff} Inhale 2 [facility] formoteroL 4-26 Puffs 2 ity of (SYMBICORT) 00:00: (two) [place] 160-4.5 00 times Medical mcg/actuati daily. Branch on inhaler fluticasone 2021-0 Yes [id number] 1{spray Use 1 [facility] propionate 4-26 } [place] in ity o f 50 00:00: each [place] mcg/actuati 00 nostril 2 Med ical on nasal (two) Branch spray times daily. EPINEPHrine 2021-0 Yes ADMINISTER [facility] 0.3 mg/0.3 4-26 0.3 ML IN ity of mL 00:00: THE MUSCLE [place] injection 00 1 TIME NOW Medi lula FOR 1 DOSE Branch budesonide- 2021-0 Yes [id number] 2{puff} Inhale 2 [facility] formoteroL 4-26 Puffs 2 ity of (SYMBICORT) 00:00: (two) [place] 160-4.5 00 times Medical mcg/actuati daily. Branch on inhaler fluticasone 0 Yes [id number] 1{spray Use 1 [facility] propionate 4-26 } [place] in ity o f 50 00:00: each [place] mcg/actuati 00 nostril 2 Med ical on nasal (two) Branch spray times daily. EPINEPHrine 2021-0 Yes ADMINISTER [facility] 0.3 mg/0.3 4-26 0.3 ML IN ity of mL 00:00: THE MUSCLE [place] injection 00 1 TIME NOW Medi lula FOR 1 DOSE Branch budesonide- 2021-0 Yes [id number] 2{puff} Inhale 2 [facility] formoteroL 4-26 Puffs 2 ity of (SYMBICORT) 00:00: (two) [place] 160-4.5 00 times Medical mcg/actuati daily. Branch on inhaler fluticasone Yes [id number] 1{spray Use 1 [facility] propionate 4-26 } [place] in ity o f 50 00:00: each [place] mcg/actuati 00 nostril 2 Med ical on nasal (two) Branch spray times daily. EPINEPHrine Yes ADMINISTER [facility] 0.3 mg/0.3 4-26 0.3 ML IN ity of mL 00:00: THE MUSCLE [place] injection 00 1 TIME NOW Medi lula FOR 1 DOSE Branch budesonide- 0 Yes [id number] 2{puff} Inhale 2 [facility] formoteroL 4-26 Puffs 2 ity of (SYMBICORT) 00:00: (two) [place] 160-4.5 00 times Medical mcg/actuati daily. Branch on inhaler fluticasone Yes [id number] 1{spray Use 1 [facility] propionate 4-26 } [place] in ity o f 50 00:00: each [place] mcg/actuati 00 nostril 2 Med ical on nasal (two) Branch spray times daily. EPINEPHrine Yes ADMINISTER [facility] 0.3 mg/0.3 4-26 0.3 ML IN ity of mL 00:00: THE MUSCLE [place] injection 00 1 TIME NOW Medi lula FOR 1 DOSE Branch budesonide- 0 Yes [id number] 2{puff} Inhale 2 [facility] formoteroL 4-26 Puffs 2 ity of (SYMBICORT) 00:00: (two) [place] 160-4.5 00 times Medical mcg/actuati daily. Branch on inhaler fluticasone 2021-0 Yes [id number] 1{spray Use 1 [facility] propionate 4-26 } [place] in ity o f 50 00:00: each [place] mcg/actuati 00 nostril 2 Med ical on nasal (two) Branch spray times daily. EPINEPHrine 0 Yes ADMINISTER [facility] 0.3 mg/0.3 4-26 0.3 ML IN ity of mL 00:00: THE MUSCLE [place] injection 00 1 TIME NOW Medi lula FOR 1 DOSE Branch budesonide- 0 Yes [id number] 2{puff} Inhale 2 [facility] formoteroL 4-26 Puffs 2 ity of (SYMBICORT) 00:00: (two) [place] 160-4.5 00 times Medical mcg/actuati daily. Branch on inhaler fluticasone 0 Yes [id number] 1{spray Use 1 [facility] propionate 4-26 } [place] in ity o f 50 00:00: each [place] mcg/actuati 00 nostril 2 Med ical on nasal (two) Branch spray times daily. EPINEPHrine Yes ADMINISTER [facility] 0.3 mg/0.3 4-26 0.3 ML IN ity of mL 00:00: THE MUSCLE [place] injection 00 1 TIME NOW Medi lula FOR 1 DOSE Branch budesonide- Yes [id number] 2{puff} Inhale 2 [facility] formoteroL 4-26 Puffs 2 ity of (SYMBICORT) 00:00: (two) [place] 160-4.5 00 times Medical mcg/actuati daily. Branch on inhaler fluticasone Yes [id number] 1{spray Use 1 [facility] propionate 4-26 } [place] in ity o f 50 00:00: each [place] mcg/actuati 00 nostril 2 Med ical on nasal (two) Branch spray times daily. EPINEPHrine Yes ADMINISTER [facility] 0.3 mg/0.3 4-26 0.3 ML IN ity of mL 00:00: THE MUSCLE [place] injection 00 1 TIME NOW Medi lula FOR 1 DOSE Branch budesonide- Yes [id number] 2{puff} Inhale 2 [facility] formoteroL 4-26 Puffs 2 ity of (SYMBICORT) 00:00: (two) [place] 160-4.5 00 times Medical mcg/actuati daily. Branch on inhaler fluticasone 0 Yes [id number] 1{spray Use 1 [facility] propionate 4-26 } [place] in ity o f 50 00:00: each [place] mcg/actuati 00 nostril 2 Med ical on nasal (two) Branch spray times daily. EPINEPHrine 2021-0 Yes ADMINISTER [facility] 0.3 mg/0.3 4-26 0.3 ML IN ity of mL 00:00: THE MUSCLE [place] injection 00 1 TIME NOW Medi lula FOR 1 DOSE Branch budesonide- Yes [id number] 2{puff} Inhale 2 [facility] formoteroL 4-26 Puffs 2 ity of (SYMBICORT) 00:00: (two) [place] 160-4.5 00 times Medical mcg/actuati daily. Branch on inhaler fluticasone 0 Yes [id number] 1{spray Use 1 [facility] propionate 4-26 } [place] in ity o f 50 00:00: each [place] mcg/actuati 00 nostril 2 Med ical on nasal (two) Branch spray times daily. EPINEPHrine Yes ADMINISTER [facility] 0.3 mg/0.3 4-26 0.3 ML IN ity of mL 00:00: THE MUSCLE [place] injection 00 1 TIME NOW Medi lula FOR 1 DOSE Branch budesonide- Yes [id number] 2{puff} Inhale 2 [facility] formoteroL 4-26 Puffs 2 ity of (SYMBICORT) 00:00: (two) [place] 160-4.5 00 times Medical mcg/actuati daily. Branch on inhaler fluticasone Yes [id number] 1{spray Use 1 [facility] propionate 4-26 } [place] in ity o f 50 00:00: each [place] mcg/actuati 00 nostril 2 Med ical on nasal (two) Branch spray times daily. EPINEPHrine Yes ADMINISTER [facility] 0.3 mg/0.3 4-26 0.3 ML IN ity of mL 00:00: THE MUSCLE [place] injection 00 1 TIME NOW Medi lula FOR 1 DOSE Branch budesonide- 0 Yes [id number] 2{puff} Inhale 2 [facility] formoteroL 4-26 Puffs 2 ity of (SYMBICORT) 00:00: (two) [place] 160-4.5 00 times Medical mcg/actuati daily. Branch on inhaler fluticasone 0 Yes [id number] 1{spray Use 1 [facility] propionate 4-26 } [place] in ity o f 50 00:00: each [place] mcg/actuati 00 nostril 2 Med ical on nasal (two) Branch spray times daily. EPINEPHrine 0 Yes ADMINISTER [facility] 0.3 mg/0.3 4-26 0.3 ML IN ity of mL 00:00: THE MUSCLE [place] injection 00 1 TIME NOW Medi lula FOR 1 DOSE Branch budesonide- 0 Yes [id number] 2{puff} Inhale 2 [facility] formoteroL 4-26 Puffs 2 ity of (SYMBICORT) 00:00: (two) [place] 160-4.5 00 times Medical mcg/actuati daily. Branch on inhaler fluticasone 2021-0 Yes [id number] 1{spray Use 1 [facility] propionate 4-26 } [place] in ity o f 50 00:00: each [place] mcg/actuati 00 nostril 2 Med ical on nasal (two) Branch spray times daily. EPINEPHrine 2021- Yes ADMINISTER [facility] 0.3 mg/0.3 4-26 0.3 ML IN ity of mL 00:00: THE MUSCLE [place] injection 00 1 TIME NOW Medi lula FOR 1 DOSE Branch budesonide- Yes [id number] 2{puff} Inhale 2 [facility] formoteroL 4-26 Puffs 2 ity of (SYMBICORT) 00:00: (two) [place] 160-4.5 00 times Medical mcg/actuati daily. Branch on inhaler fluticasone 0 Yes [id number] 1{spray Use 1 [facility] propionate 4-26 } [place] in ity o f 50 00:00: each [place] mcg/actuati 00 nostril 2 Med ical on nasal (two) Branch spray times daily. EPINEPHrine 2021-0 Yes ADMINISTER [facility] 0.3 mg/0.3 4-26 0.3 ML IN ity of mL 00:00: THE MUSCLE [place] injection 00 1 TIME NOW Medi lula FOR 1 DOSE Branch budesonide- 2021-0 Yes [id number] 2{puff} Inhale 2 [facility] formoteroL 4-26 Puffs 2 ity of (SYMBICORT) 00:00: (two) [place] 160-4.5 00 times Medical mcg/actuati daily. Branch on inhaler fluticasone 2021-0 Yes [id number] 1{spray Use 1 [facility] propionate 4-26 } [place] in ity o f 50 00:00: each [place] mcg/actuati 00 nostril 2 Med ical on nasal (two) Branch spray times daily. EPINEPHrine 2021-0 Yes ADMINISTER [facility] 0.3 mg/0.3 4-26 0.3 ML IN ity of mL 00:00: THE MUSCLE [place] injection 00 1 TIME NOW Medi lula FOR 1 DOSE Branch budesonide- 2021-0 Yes [id number] 2{puff} Inhale 2 [facility] formoteroL 4-26 Puffs 2 ity of (SYMBICORT) 00:00: (two) [place] 160-4.5 00 times Medical mcg/actuati daily. Branch on inhaler fluticasone 2021-0 Yes [id number] 1{spray Use 1 [facility] propionate 4-26 } [place] in ity o f 50 00:00: each [place] mcg/actuati 00 nostril 2 Med ical on nasal (two) Branch spray times daily. EPINEPHrine 2021-0 Yes ADMINISTER [facility] 0.3 mg/0.3 4-26 0.3 ML IN ity of mL 00:00: THE MUSCLE [place] injection 00 1 TIME NOW Medi lula FOR 1 DOSE Branch budesonide- 2021-0 Yes [id number] 2{puff} Inhale 2 [facility] formoteroL 4-26 Puffs 2 ity of (SYMBICORT) 00:00: (two) [place] 160-4.5 00 times Medical mcg/actuati daily. Branch on inhaler fluticasone 2021-0 Yes [id number] 1{spray Use 1 [facility] propionate 4-26 } [place] in ity o f 50 00:00: each [place] mcg/actuati 00 nostril 2 Med ical on nasal (two) Branch spray times daily. EPINEPHrine 2021-0 Yes ADMINISTER [facility] 0.3 mg/0.3 4-26 0.3 ML IN ity of mL 00:00: THE MUSCLE [place] injection 00 1 TIME NOW Medi lula FOR 1 DOSE Branch budesonide- 2021-0 Yes [id number] 2{puff} Inhale 2 [facility] formoteroL 4-26 Puffs 2 ity of (SYMBICORT) 00:00: (two) [place] 160-4.5 00 times Medical mcg/actuati daily. Branch on inhaler fluticasone 2021-0 Yes [id number] 1{spray Use 1 [facility] propionate 4-26 } [place] in ity o f 50 00:00: each [place] mcg/actuati 00 nostril 2 Med ical on nasal (two) Branch spray times daily. EPINEPHrine 2021-0 Yes ADMINISTER [facility] 0.3 mg/0.3 4-26 0.3 ML IN ity of mL 00:00: THE MUSCLE [place] injection 00 1 TIME NOW Medi lula FOR 1 DOSE Branch budesonide- 2021- Yes [id number] 2{puff} Inhale 2 [facility] formoteroL 4-26 Puffs 2 ity of (SYMBICORT) 00:00: (two) [place] 160-4.5 00 times Medical mcg/actuati daily. Branch on inhaler fluticasone 2021- Yes [id number] 1{spray Use 1 [facility] propionate 4-26 } [place] in ity o f 50 00:00: each [place] mcg/actuati 00 nostril 2 Med ical on nasal (two) Branch spray times daily. EPINEPHrine 2021- Yes ADMINISTER [facility] 0.3 mg/0.3 4-26 0.3 ML IN ity of mL 00:00: THE MUSCLE [place] injection 00 1 TIME NOW Medi lula FOR 1 DOSE Branch budesonide- Yes [id number] 2{puff} Inhale 2 [facility] formoteroL 4-26 Puffs 2 ity of (SYMBICORT) 00:00: (two) [place] 160-4.5 00 times Medical mcg/actuati daily. Branch on inhaler fluticasone Yes [id number] 1{spray Use 1 [facility] propionate 4-26 } [place] in ity o f 50 00:00: each [place] mcg/actuati 00 nostril 2 Med ical on nasal (two) Branch spray times daily. EPINEPHrine 2021- Yes ADMINISTER [facility] 0.3 mg/0.3 4-26 0.3 ML IN ity of mL 00:00: THE MUSCLE [place] injection 00 1 TIME NOW Medi lula FOR 1 DOSE Branch budesonide- 2021-0 Yes [id number] 2{puff} Inhale 2 [facility] formoteroL 4-26 Puffs 2 ity of (SYMBICORT) 00:00: (two) [place] 160-4.5 00 times Medical mcg/actuati daily. Branch on inhaler fluticasone Yes [id number] 1{spray Use 1 [facility] propionate 4-26 } [place] in ity o f 50 00:00: each [place] mcg/actuati 00 nostril 2 Med ical on nasal (two) Branch spray times daily. EPINEPHrine 2021-0 Yes ADMINISTER [facility] 0.3 mg/0.3 4-26 0.3 ML IN ity of mL 00:00: THE MUSCLE [place] injection 00 1 TIME NOW Medi lula FOR 1 DOSE Branch budesonide- Yes [id number] 2{puff} Inhale 2 [facility] formoteroL 4-26 Puffs 2 ity of (SYMBICORT) 00:00: (two) [place] 160-4.5 00 times Medical mcg/actuati daily. Branch on inhaler fluticasone Yes [id number] 1{spray Use 1 [facility] propionate 4-26 } [place] in ity o f 50 00:00: each [place] mcg/actuati 00 nostril 2 Med ical on nasal (two) Branch spray times daily. EPINEPHrine Yes ADMINISTER [facility] 0.3 mg/0.3 4-26 0.3 ML IN ity of mL 00:00: THE MUSCLE [place] injection 00 1 TIME NOW Medi lula FOR 1 DOSE Branch budesonide- Yes [id number] 2{puff} Inhale 2 [facility] formoteroL 4-26 Puffs 2 ity of (SYMBICORT) 00:00: (two) [place] 160-4.5 00 times Medical mcg/actuati daily. Branch on inhaler EPINEPHrine Yes ADMINISTER [facility] 0.3 mg/0.3 4-26 0.3 ML IN ity of mL 00:00: THE MUSCLE [place] injection 00 1 TIME NOW Medi lula FOR 1 DOSE Branch budesonide- Yes [id number] 2{puff} Inhale 2 [facility] formoteroL 4-26 Puffs 2 ity of (SYMBICORT) 00:00: (two) [place] 160-4.5 00 times Medical mcg/actuati daily. Branch on inhaler EPINEPHrine Yes ADMINISTER [facility] 0.3 mg/0.3 4-26 0.3 ML IN ity of mL 00:00: THE MUSCLE [place] injection 00 1 TIME NOW Medi lula FOR 1 DOSE Branch budesonide- 0 Yes [id number] 2{puff} Inhale 2 [facility] formoteroL 4-26 Puffs 2 ity of (SYMBICORT) 00:00: (two) [place] 160-4.5 00 times Medical mcg/actuati daily. Branch on inhaler EPINEPHrine Yes ADMINISTER [facility] 0.3 mg/0.3 4-26 0.3 ML IN ity of mL 00:00: THE MUSCLE [place] injection 00 1 TIME NOW Medi lula FOR 1 DOSE Branch budesonide- Yes [id number] 2{puff} Inhale 2 [facility] formoteroL 4-26 Puffs 2 ity of (SYMBICORT) 00:00: (two) [place] 160-4.5 00 times Medical mcg/actuati daily. Branch on inhaler EPINEPHrine Yes ADMINISTER [facility] 0.3 mg/0.3 4-26 0.3 ML IN ity of mL 00:00: THE MUSCLE [place] injection 00 1 TIME NOW Medi lula FOR 1 DOSE Branch budesonide- 0 Yes [id number] 2{puff} Inhale 2 [facility] formoteroL 4-26 Puffs 2 ity of (SYMBICORT) 00:00: (two) [place] 160-4.5 00 times Medical mcg/actuati daily. Branch on inhaler EPINEPHrine 2021- Yes ADMINISTER [facility] 0.3 mg/0.3 4-26 0.3 ML IN ity of mL 00:00: THE MUSCLE [place] injection 00 1 TIME NOW Medi lula FOR 1 DOSE Branch budesonide- 0 Yes [id number] 2{puff} Inhale 2 [facility] formoteroL 4-26 Puffs 2 ity of (SYMBICORT) 00:00: (two) [place] 160-4.5 00 times Medical mcg/actuati daily. Branch on inhaler EPINEPHrine Yes ADMINISTER [facility] 0.3 mg/0.3 4-26 0.3 ML IN ity of mL 00:00: THE MUSCLE [place] injection 00 1 TIME NOW Medi lula FOR 1 DOSE Branch budesonide- 2021-0 Yes [id number] 2{puff} Inhale 2 [facility] formoteroL 4-26 Puffs 2 ity of (SYMBICORT) 00:00: (two) [place] 160-4.5 00 times Medical mcg/actuati daily. Branch on inhaler EPINEPHrine 2021-0 Yes ADMINISTER [facility] 0.3 mg/0.3 4-26 0.3 ML IN ity of mL 00:00: THE MUSCLE [place] injection 00 1 TIME NOW Medi lula FOR 1 DOSE Branch budesonide- 2021-0 Yes [id number] 2{puff} Inhale 2 [facility] formoteroL 4-26 Puffs 2 ity of (SYMBICORT) 00:00: (two) [place] 160-4.5 00 times Medical mcg/actuati daily. Branch on inhaler EPINEPHrine 2021-0 Yes ADMINISTER [facility] 0.3 mg/0.3 4-26 0.3 ML IN ity of mL 00:00: THE MUSCLE [place] injection 00 1 TIME NOW Medi lula FOR 1 DOSE Branch budesonide- 2021-0 Yes [id number] 2{puff} Inhale 2 [facility] formoteroL 4-26 Puffs 2 ity of (SYMBICORT) 00:00: (two) [place] 160-4.5 00 times Medical mcg/actuati daily. Branch on inhaler EPINEPHrine Yes ADMINISTER [facility] 0.3 mg/0.3 4-26 0.3 ML IN ity of mL 00:00: THE MUSCLE [place] injection 00 1 TIME NOW Medi lula FOR 1 DOSE Branch budesonide- 2021-0 Yes [id number] 2{puff} Inhale 2 [facility] formoteroL 4-26 Puffs 2 ity of (SYMBICORT) 00:00: (two) [place] 160-4.5 00 times Medical mcg/actuati daily. Branch on inhaler EPINEPHrine Yes ADMINISTER [facility] 0.3 mg/0.3 4-26 0.3 ML IN ity of mL 00:00: THE MUSCLE [place] injection 00 1 TIME NOW Medi lula FOR 1 DOSE Branch budesonide- 2021-0 Yes [id number] 2{puff} Inhale 2 [facility] formoteroL 4-26 Puffs 2 ity of (SYMBICORT) 00:00: (two) [place] 160-4.5 00 times Medical mcg/actuati daily. Branch on inhaler EPINEPHrine 2021-0 Yes ADMINISTER [facility] 0.3 mg/0.3 4-26 0.3 ML IN ity of mL 00:00: THE MUSCLE [place] injection 00 1 TIME NOW Medi lula FOR 1 DOSE Branch budesonide- 2021-0 Yes [id number] 2{puff} Inhale 2 [facility] formoteroL 4-26 Puffs 2 ity of (SYMBICORT) 00:00: (two) [place] 160-4.5 00 times Medical mcg/actuati daily. Branch on inhaler EPINEPHrine 2022-0 Yes ADMINISTER [facility] 0.3 mg/0.3 4-26 0.3 ML IN ity of mL 00:00: THE MUSCLE [place] injection 00 1 TIME NOW Medi lula FOR 1 DOSE Branch budesonide- Yes [id number] 2{puff} Inhale 2 [facility] formoteroL 4-26 Puffs 2 ity of (SYMBICORT) 00:00: (two) [place] 160-4.5 00 times Medical mcg/actuati daily. Branch on inhaler EPINEPHrine Yes ADMINISTER [facility] 0.3 mg/0.3 4-26 0.3 ML IN ity of mL 00:00: THE MUSCLE [place] injection 00 1 TIME NOW Medi lula FOR 1 DOSE Branch budesonide- Yes [id number] 2{puff} Inhale 2 [facility] formoteroL 4-26 Puffs 2 ity of (SYMBICORT) 00:00: (two) [place] 160-4.5 00 times Medical mcg/actuati daily. Branch on inhaler EPINEPHrine Yes ADMINISTER [facility] 0.3 mg/0.3 4-26 0.3 ML IN ity of mL 00:00: THE MUSCLE [place] injection 00 1 TIME NOW Medi lula FOR 1 DOSE Branch budesonide- Yes [id number] 2{puff} Inhale 2 [facility] formoteroL 4-26 Puffs 2 ity of (SYMBICORT) 00:00: (two) [place] 160-4.5 00 times Medical mcg/actuati daily. Branch on inhaler EPINEPHrine Yes ADMINISTER [facility] 0.3 mg/0.3 4-26 0.3 ML IN ity of mL 00:00: THE MUSCLE [place] injection 00 1 TIME NOW Medi lula FOR 1 DOSE Branch budesonide- 2021-0 Yes [id number] 2{puff} Inhale 2 [facility] formoteroL 4-26 Puffs 2 ity of (SYMBICORT) 00:00: (two) [place] 160-4.5 00 times Medical mcg/actuati daily. Branch on inhaler EPINEPHrine Yes ADMINISTER [facility] 0.3 mg/0.3 4-26 0.3 ML IN ity of mL 00:00: THE MUSCLE [place] injection 00 1 TIME NOW Medi lula FOR 1 DOSE Branch budesonide- 2021-0 Yes [id number] 2{puff} Inhale 2 [facility] formoteroL 4-26 Puffs 2 ity of (SYMBICORT) 00:00: (two) [place] 160-4.5 00 times Medical mcg/actuati daily. Branch on inhaler EPINEPHrine 2021-0 Yes ADMINISTER [facility] 0.3 mg/0.3 4-26 0.3 ML IN ity of mL 00:00: THE MUSCLE [place] injection 00 1 TIME NOW Medi lula FOR 1 DOSE Branch budesonide- 2021-0 Yes [id number] 2{puff} Inhale 2 [facility] formoteroL 4-26 Puffs 2 ity of (SYMBICORT) 00:00: (two) [place] 160-4.5 00 times Medical mcg/actuati daily. Branch on inhaler EPINEPHrine 2021- Yes ADMINISTER [facility] 0.3 mg/0.3 4-26 0.3 ML IN ity of mL 00:00: THE MUSCLE [place] injection 00 1 TIME NOW Medi lula FOR 1 DOSE Branch budesonide- 2021-0 Yes [id number] 2{puff} Inhale 2 [facility] formoteroL 4-26 Puffs 2 ity of (SYMBICORT) 00:00: (two) [place] 160-4.5 00 times Medical mcg/actuati daily. Branch on inhaler EPINEPHrine 0 Yes ADMINISTER [facility] 0.3 mg/0.3 4-26 0.3 ML IN ity of mL 00:00: THE MUSCLE [place] injection 00 1 TIME NOW Medi lula FOR 1 DOSE Branch budesonide- 2021-0 Yes [id number] 2{puff} Inhale 2 [facility] formoteroL 4-26 Puffs 2 ity of (SYMBICORT) 00:00: (two) [place] 160-4.5 00 times Medical mcg/actuati daily. Branch on inhaler EPINEPHrine 2021-0 Yes ADMINISTER [facility] 0.3 mg/0.3 4-26 0.3 ML IN ity of mL 00:00: THE MUSCLE [place] injection 00 1 TIME NOW Medi lula FOR 1 DOSE Branch budesonide- 2021-0 Yes [id number] 2{puff} Inhale 2 [facility] formoteroL 4-26 Puffs 2 ity of (SYMBICORT) 00:00: (two) [place] 160-4.5 00 times Medical mcg/actuati daily. Branch on inhaler budesonide- 2022-0 Yes [id number] 2{puff} Inhale 2 [facility] formoteroL 4-26 Puffs 2 ity of (SYMBICORT) 00:00: (two) [place] 160-4.5 00 times Medical mcg/actuati daily. Branch on inhaler budesonide- 0 Yes [id number] 2{puff} Inhale 2 [facility] formoteroL 4-26 Puffs 2 ity of (SYMBICORT) 00:00: (two) [place] 160-4.5 00 times Medical mcg/actuati daily. Branch on inhaler budesonide- 0 Yes [id number] 2{puff} Inhale 2 [facility] formoteroL 4-26 Puffs 2 ity of (SYMBICORT) 00:00: (two) [place] 160-4.5 00 times Medical mcg/actuati daily. Branch on inhaler budesonide- Yes [id number] 2{puff} Inhale 2 [facility] formoteroL 4-26 Puffs 2 ity of (SYMBICORT) 00:00: (two) [place] 160-4.5 00 times Medical mcg/actuati daily. Branch on inhaler budesonide- Yes [id number] 2{puff} Inhale 2 [facility] formoteroL 4-26 Puffs 2 ity of (SYMBICORT) 00:00: (two) [place] 160-4.5 00 times Medical mcg/actuati daily. Branch on inhaler budesonide- 0 Yes [id number] 2{puff} Inhale 2 [facility] formoteroL 4-26 Puffs 2 ity of (SYMBICORT) 00:00: (two) [place] 160-4.5 00 times Medical mcg/actuati daily. Branch on inhaler budesonide- 2021-0 Yes [id number] 2{puff} Inhale 2 [facility] formoteroL 4-26 Puffs 2 ity of (SYMBICORT) 00:00: (two) [place] 160-4.5 00 times Medical mcg/actuati daily. Branch on inhaler budesonide- 0 Yes [id number] 2{puff} Inhale 2 [facility] formoteroL 4-26 Puffs 2 ity of (SYMBICORT) 00:00: (two) [place] 160-4.5 00 times Medical mcg/actuati daily. Branch on inhaler budesonide- Yes [id number] 2{puff} Inhale 2 [facility] formoteroL 4-26 Puffs 2 ity of (SYMBICORT) 00:00: (two) [place] 160-4.5 00 times Medical mcg/actuati daily. Branch on inhaler budesonide- Yes [id number] 2{puff} Inhale 2 [facility] formoteroL 4-26 Puffs 2 ity of (SYMBICORT) 00:00: (two) [place] 160-4.5 00 times Medical mcg/actuati daily. Branch on inhaler budesonide- Yes [id number] 2{puff} Inhale 2 [facility] formoteroL 4-26 Puffs 2 ity of (SYMBICORT) 00:00: (two) [place] 160-4.5 00 times Medical mcg/actuati daily. Branch on inhaler budesonide- Yes [id number] 2{puff} Inhale 2 [facility] formoteroL 4-26 Puffs 2 ity of (SYMBICORT) 00:00: (two) [place] 160-4.5 00 times Medical mcg/actuati daily. Branch on inhaler budesonide- Yes [id number] 2{puff} Inhale 2 [facility] formoteroL 4-26 Puffs 2 ity of (SYMBICORT) 00:00: (two) [place] 160-4.5 00 times Medical mcg/actuati daily. Branch on inhaler budesonide- Yes [id number] 2{puff} Inhale 2 [facility] formoteroL 4-26 Puffs 2 ity of (SYMBICORT) 00:00: (two) [place] 160-4.5 00 times Medical mcg/actuati daily. Branch on inhaler budesonide- Yes [id number] 2{puff} Inhale 2 [facility] formoteroL 4-26 Puffs 2 ity of (SYMBICORT) 00:00: (two) [place] 160-4.5 00 times Medical mcg/actuati daily. Branch on inhaler budesonide- Yes [id number] 2{puff} Inhale 2 [facility] formoteroL 4-26 Puffs 2 ity of (SYMBICORT) 00:00: (two) [place] 160-4.5 00 times Medical mcg/actuati daily. Branch on inhaler budesonide- Yes [id number] 2{puff} Inhale 2 [facility] formoteroL 4-26 Puffs 2 ity of (SYMBICORT) 00:00: (two) [place] 160-4.5 00 times Medical mcg/actuati daily. Branch on inhaler budesonide- Yes [id number] 2{puff} Inhale 2 [facility] formoteroL 4-26 Puffs 2 ity of (SYMBICORT) 00:00: (two) [place] 160-4.5 00 times Medical mcg/actuati daily. Branch on inhaler budesonide- Yes [id number] 2{puff} Inhale 2 [facility] formoteroL 4-26 Puffs 2 ity of (SYMBICORT) 00:00: (two) [place] 160-4.5 00 times Medical mcg/actuati daily. Branch on inhaler budesonide- Yes [id number] 2{puff} Inhale 2 [facility] formoteroL 4-26 Puffs 2 ity of (SYMBICORT) 00:00: (two) [place] 160-4.5 00 times Medical mcg/actuati daily. Branch on inhaler budesonide- Yes [id number] 2{puff} Inhale 2 [facility] formoteroL 4-26 Puffs 2 ity of (SYMBICORT) 00:00: (two) [place] 160-4.5 00 times Medical mcg/actuati daily. Branch on inhaler budesonide- Yes [id number] 2{puff} Inhale 2 [facility] formoteroL 4-26 Puffs 2 ity of (SYMBICORT) 00:00: (two) [place] 160-4.5 00 times Medical mcg/actuati daily. Branch on inhaler budesonide- Yes [id number] 2{puff} Inhale 2 [facility] formoteroL 4-26 Puffs 2 ity of (SYMBICORT) 00:00: (two) [place] 160-4.5 00 times Medical mcg/actuati daily. Branch on inhaler budesonide- Yes [id number] 2{puff} Inhale 2 [facility] formoteroL 4-26 Puffs 2 ity of (SYMBICORT) 00:00: (two) [place] 160-4.5 00 times Medical mcg/actuati daily. Branch on inhaler budesonide- 0 Yes [id number] 2{puff} Inhale 2 [facility] formoteroL 4-26 Puffs 2 ity of (SYMBICORT) 00:00: (two) [place] 160-4.5 00 times Medical mcg/actuati daily. Branch on inhaler budesonide- 0 Yes [id number] 2{puff} Inhale 2 [facility] formoteroL 4-26 Puffs 2 ity of (SYMBICORT) 00:00: (two) [place] 160-4.5 00 times Medical mcg/actuati daily. Branch on inhaler budesonide- Yes [id number] 2{puff} Inhale 2 [facility] formoteroL 4-26 Puffs 2 ity of (SYMBICORT) 00:00: (two) [place] 160-4.5 00 times Medical mcg/actuati daily. Branch on inhaler budesonide- 0 Yes [id number] 2{puff} Inhale 2 [facility] formoteroL 4-26 Puffs 2 ity of (SYMBICORT) 00:00: (two) [place] 160-4.5 00 times Medical mcg/actuati daily. Branch on inhaler budesonide- 0 Yes [id number] 2{puff} Inhale 2 [facility] formoteroL 4-26 Puffs 2 ity of (SYMBICORT) 00:00: (two) [place] 160-4.5 00 times Medical mcg/actuati daily. Branch on inhaler budesonide- 0 Yes [id number] 2{puff} Inhale 2 [facility] formoteroL 4-26 Puffs 2 ity of (SYMBICORT) 00:00: (two) [place] 160-4.5 00 times Medical mcg/actuati daily. Branch on inhaler budesonide- 0 Yes [id number] 2{puff} Inhale 2 [facility] formoteroL 4-26 Puffs 2 ity of (SYMBICORT) 00:00: (two) [place] 160-4.5 00 times Medical mcg/actuati daily. Branch on inhaler budesonide- Yes [id number] 2{puff} Inhale 2 [facility] formoteroL 4-26 Puffs 2 ity of (SYMBICORT) 00:00: (two) [place] 160-4.5 00 times Medical mcg/actuati daily. Branch on inhaler budesonide- Yes [id number] 2{puff} Inhale 2 [facility] formoteroL 4-26 Puffs 2 ity of (SYMBICORT) 00:00: (two) [place] 160-4.5 00 times Medical mcg/actuati daily. Branch on inhaler budesonide- Yes [id number] 2{puff} Inhale 2 [facility] formoteroL 4-26 Puffs 2 ity of (SYMBICORT) 00:00: (two) [place] 160-4.5 00 times Medical mcg/actuati daily. Branch on inhaler budesonide- Yes [id number] 2{puff} Inhale 2 [facility] formoteroL 4-26 Puffs 2 ity of (SYMBICORT) 00:00: (two) [place] 160-4.5 00 times Medical mcg/actuati daily. Branch on inhaler budesonide- Yes [id number] 2{puff} Inhale 2 [facility] formoteroL 4-26 Puffs 2 ity of (SYMBICORT) 00:00: (two) [place] 160-4.5 00 times Medical mcg/actuati daily. Branch on inhaler budesonide- Yes [id number] 2{puff} Inhale 2 [facility] formoteroL 4-26 Puffs 2 ity of (SYMBICORT) 00:00: (two) [place] 160-4.5 00 times Medical mcg/actuati daily. Branch on inhaler budesonide- Yes [id number] 2{puff} Inhale 2 [facility] formoteroL 4-26 Puffs 2 ity of (SYMBICORT) 00:00: (two) [place] 160-4.5 00 times Medical mcg/actuati daily. Branch on inhaler budesonide- Yes [id number] 2{puff} Inhale 2 [facility] formoteroL 4-26 Puffs 2 ity of (SYMBICORT) 00:00: (two) [place] 160-4.5 00 times Medical mcg/actuati daily. Branch on inhaler budesonide- Yes [id number] 2{puff} Inhale 2 [facility] formoteroL 4-26 Puffs 2 ity of (SYMBICORT) 00:00: (two) [place] 160-4.5 00 times Medical mcg/actuati daily. Branch on inhaler budesonide- Yes [id number] 2{puff} Inhale 2 [facility] formoteroL 4-26 Puffs 2 ity of (SYMBICORT) 00:00: (two) [place] 160-4.5 00 times Medical mcg/actuati daily. Branch on inhaler fluticasone 2023- No [id number] 1{spray Use 1 [facility] propionate 4-26 04-21 } [place] in ity of 50 00:00: 00:00 each [...] 00 EVERY Medical WEEK. Branch buprenorphi 2021-0 2023- No APPLY 1 [place] 20 4-19 07-19 PATCH ON ity of mcg/hour 00:00: 00:[place] [facility] 00 :00 EVERY Medical WEEK. Branch buprenorphi 2021-0 2022- No APPLY 1 [facility] [place] ne 20 4-19 07-19 PATCH ON ity of mcg/hour 00:00: 00:00 [place] [facility] 00 :00 EVERY Medical WEEK. Branch buprenorphi 2021-0 2022- No APPLY 1 [facility] [place] 20 4-19 07-19 PATCH ON ity of mcg/hour 00:00: 00:00 [place] [facility] 00 :00 EVERY Medical WEEK. Branch buprenorphi 0 2022- No APPLY 1 Un alfonso ne [...] No TAKE 1 [facility] vers en-codeine 4-18 -19 TABLET BY ity of 300-60 mg 00:00: 00:00 MOUTH [place] tablet 00 :00 EVERY 6 Medical HOURS Branch NEEDED acetaminoph 2021-0 2022- No TAKE 1 [facility] vers en-codeine 4-27 11-19 TABLET BY ity of 300-60 mg 00:00: 00:00 MOUTH [place] tablet 00 :00 EVERY 6 Medical HOURS Branch NEEDED acetaminoph 2021-0 2022- No TAKE 1 [facility] vers en-codeine 4-27 11-19 TABLET BY ity of 300-60 mg 00:00: 00:00 MOUTH [place] tablet 00 :00 EVERY 6 Medical HOURS Branch NEEDED acetaminoph 2021-0 2022- No TAKE 1 [facility] vers en-codeine 4-27 11-19 TABLET BY ity of 300-60 mg 00:00: 00:00 MOUTH [place] tablet 00 :00 EVERY 6 Medical HOURS Branch NEEDED losartan 25 Yes 25mg Take 25 mg [facility] mg tablet 4-11 by mouth ity of 13:05: daily. [address] losartan 25 Yes 25mg Take 25 mg [facility] mg tablet 4-11 by mouth ity of 13:05: daily. [address] losartan 25 Yes 25mg Take 25 mg [facility] mg tablet 4-11 by mouth ity of 13:05: daily. [address] losartan 25 Yes 25mg Take 25 mg [facility] mg tablet 4-11 by mouth ity of 13:05: daily. [address] losartan 25 Yes 25mg Take 25 mg [facility] mg tablet 4-11 by mouth ity of 13:05: daily. [address] losartan 25 0 Yes 25mg Take 25 mg [facility] mg tablet 4-11 by mouth ity of 13:05: daily. [address] losartan 25 0 Yes 25mg Take 25 mg [facility] mg tablet 4-11 by mouth ity of 13:05: daily. [address] losartan 25 0 Yes 25mg Take 25 mg [facility] mg tablet 4-11 by mouth ity of 13:05: daily. [address] [address] losartan 25 0 Yes 25mg Take 25 mg [facility] mg tablet 4-11 by mouth ity of 13:05: daily. [address] losartan 25 0 Yes 25mg Take 25 mg [facility] mg tablet 4-11 by mouth ity of 13:05: daily. [address] losartan 25 Yes 25mg Take 25 mg [facility] mg tablet 4-11 by mouth ity of 13:05: daily. [address] losartan 25 Yes 25mg Take 25 mg [facility] mg tablet 4-11 by mouth ity of 13:05: daily. [address] losartan 25 Yes 25mg Take 25 mg [facility] mg tablet 4-11 by mouth ity of 13:05: daily. [address] losartan 25 Yes 25mg Take 25 mg [facility] mg tablet 4-11 by mouth ity of 13:05: daily. [address] losartan 25 Yes 25mg Take 25 mg [facility] mg tablet 4-11 by mouth ity of 13:05: daily. [address] losartan 25 Yes 25mg Take 25 mg [facility] mg tablet 4-11 by mouth ity of 13:05: daily. [address] losartan 25 Yes 25mg Take 25 mg [facility] mg tablet 4-11 by mouth ity of 13:05: daily. [address] losartan 25 Yes 25mg Take 25 mg [facility] mg tablet 4-11 by mouth ity of 13:05: daily. [address] losartan 25 Yes 25mg Take 25 mg [facility] mg tablet 4-11 by mouth ity of 13:05: daily. [address] losartan 25 Yes 25mg Take 25 mg [facility] mg tablet 4-11 by mouth ity of 13:05: daily. [address] losartan 25 Yes 25mg Take 25 mg [facility] mg tablet 4-11 by mouth ity of 13:05: daily. [address] Branch ACCU-CHEK 0 Yes [facility] SOFTCLIX 4-07 ity of LANCETS 00:00: [facility] Medical Branch ACCU-CHEK 2021-0 Yes [facility] SOFTCLIX 4-07 ity of LANCETS 00:00: [place] [address] Medical Branch ACCU-CHEK 2021-0 Yes [facility] SOFTCLIX 4-07 ity of LANCETS 00:00: [place] [address] Medical Branch ACCU-CHEK 2021-0 Yes [facility] SOFTCLIX 4-07 ity of LANCETS 00:00: [facility] 00 Medical Branch ACCU-CHEK 2022-0 Yes [facility] SOFTCLIX 4-07 ity of LANCETS 00:00: [facility] 00 Medical Branch ACCU-CHEK 2022-0 Yes [facility] SOFTCLIX 4-07 ity of LANCETS 00:00: [facility] 00 Medical Branch ACCU-CHEK 2022-0 Yes [facility] SOFTCLIX 4-07 ity of LANCETS 00:00: [facility] 00 Medical Branch ACCU-CHEK 2022-0 Yes [facility] SOFTCLIX 4-07 ity of LANCETS 00:00: [facility] 00 Medical Branch ACCU-CHEK 2022-0 Yes [facility] SOFTCLIX 4-07 ity of LANCETS 00:00: [facility] 00 Medical Branch ACCU-CHEK 2022-0 Yes [facility] SOFTCLIX 4-07 ity of LANCETS 00:00: [facility] 00 Medical Branch ACCU-CHEK 2022-0 Yes [facility] SOFTCLIX 4-07 ity of LANCETS 00:00: [facility] 00 Medical Branch ACCU-CHEK 2022-0 Yes [facility] SOFTCLIX 4-07 ity of LANCETS 00:00: [facility] 00 Medical Branch ACCU-CHEK 2022-0 Yes [facility] SOFTCLIX 4-07 ity of LANCETS 00:00: [facility] 00 Medical Branch ACCU-CHEK 2022-0 Yes [facility] SOFTCLIX 4-07 ity of LANCETS 00:00: [facility] 00 Medical Branch ACCU-CHEK 2022-0 Yes [facility] SOFTCLIX 4-07 ity of LANCETS 00:00: [facility] 00 Medical Branch ACCU-CHEK 2022-0 Yes [facility] SOFTCLIX 4-07 ity of LANCETS 00:00: [facility] 00 Medical Branch ACCU-CHEK 2022-0 Yes [facility] SOFTCLIX 4-07 ity of LANCETS 00:00: [facility] 00 Medical Branch ACCU-CHEK 2022-0 Yes [facility] SOFTCLIX 4-07 ity of LANCETS 00:00: [facility] 00 Medical Branch ACCU-CHEK 2022-0 Yes [facility] SOFTCLIX 4-07 ity of LANCETS 00:00: [facility] 00 Medical Branch ACCU-CHEK 2022-0 Yes [facility] SOFTCLIX 4-07 ity of LANCETS 00:00: [facility] 00 Medical Branch ACCU-CHEK 2022-0 Yes [facility] SOFTCLIX 4-07 ity of LANCETS 00:00: [facility] 00 Medical Branch ACCU-CHEK 2022-0 Yes [facility] SOFTCLIX 4-07 ity of LANCETS 00:00: [facility] 00 Medical Branch ACCU-CHEK 2022-0 Yes [facility] SOFTCLIX 4-07 ity of LANCETS 00:00: [facility] 00 Medical Branch ACCU-CHEK 2022-0 Yes [facility] SOFTCLIX 4-07 ity of LANCETS 00:00: [facility] 00 Medical Branch ACCU-CHEK 2022-0 Yes [facility] SOFTCLIX 4-07 ity of LANCETS 00:00: [facility] 00 Medical Branch ACCU-CHEK 2022-0 Yes [facility] SOFTCLIX 4-07 ity of LANCETS 00:00: [place] [address] Medical Branch ACCU-CHEK 2022-0 Yes [facility] SOFTCLIX 4-07 ity of LANCETS 00:00: [facility] 00 Medical Branch ACCU-CHEK 2022-0 Yes [facility] SOFTCLIX 4-07 ity of LANCETS 00:00: [place] [address] Medical Branch ACCU-CHEK 2022-0 Yes [facility] SOFTCLIX 4-07 ity of LANCETS 00:00: [facility] 00 Medical Branch ACCU-CHEK 2022-0 Yes [facility] SOFTCLIX 4-07 ity of LANCETS 00:00: [facility] 00 Medical Branch ACCU-CHEK 2022-0 Yes [facility] SOFTCLIX 4-07 ity of LANCETS 00:00: [facility] 00 Medical Branch ACCU-CHEK 2022-0 Yes [facility] SOFTCLIX 4-07 ity of LANCETS 00:00: [facility] 00 Medical Branch ACCU-CHEK 2022-0 Yes [facility] SOFTCLIX 4-07 ity of LANCETS 00:00: [facility] 00 Medical Branch ACCU-CHEK 2022-0 Yes [facility] SOFTCLIX 4-07 ity of LANCETS 00:00: [facility] 00 Medical Branch ACCU-CHEK 2022-0 Yes [facility] SOFTCLIX 4-07 ity of LANCETS 00:00: [facility] 00 Medical Branch ACCU-CHEK 2022-0 Yes [facility] SOFTCLIX 4-07 ity of LANCETS 00:00: [facility] 00 Medical Branch ACCU-CHEK 2022-0 Yes [facility] SOFTCLIX 4-07 ity of LANCETS 00:00: [facility] 00 Medical Branch ACCU-CHEK 2022-0 Yes [facility] SOFTCLIX 4-07 ity of LANCETS 00:00: [facility] 00 Medical Branch ACCU-CHEK 2022-0 Yes [facility] SOFTCLIX 4-07 ity of LANCETS 00:00: [facility] 00 Medical Branch ACCU-CHEK 2022-0 Yes [facility] SOFTCLIX 4-07 ity of LANCETS 00:00: [facility] 00 Medical Branch ACCU-CHEK 2022-0 Yes [facility] SOFTCLIX 4-07 ity of LANCETS 00:00: [facility] 00 Medical Branch ACCU-CHEK 2022-0 Yes [facility] SOFTCLIX 4-07 ity of LANCETS 00:00: [facility] 00 Medical Branch ACCU-CHEK 2022-0 Yes [facility] SOFTCLIX 4-07 ity of LANCETS 00:00: [facility] 00 Medical Branch ACCU-CHEK 2022-0 Yes [facility] SOFTCLIX 4-07 ity of LANCETS 00:00: [facility] 00 Medical Branch ACCU-CHEK 2022-0 Yes [facility] SOFTCLIX 4-07 ity of LANCETS 00:00: [facility] 00 Medical Branch ACCU-CHEK 2022-0 Yes [facility] SOFTCLIX 4-07 ity of LANCETS 00:00: [facility] 00 Medical Branch ACCU-CHEK 2022-0 Yes [facility] SOFTCLIX 4-07 ity of LANCETS 00:00: [facility] 00 Medical Branch ACCU-CHEK 2022-0 Yes [facility] SOFTCLIX 4-07 ity of LANCETS 00:00: [facility] 00 Medical Branch ACCU-CHEK 2022-0 Yes [facility] SOFTCLIX 4-07 ity of LANCETS 00:00: [facility] 00 Medical Branch ACCU-CHEK 2022-0 Yes [facility] SOFTCLIX 4-07 ity of LANCETS 00:00: [facility] 00 Medical Branch ACCU-CHEK 2022-0 Yes [facility] SOFTCLIX 4-07 ity of LANCETS 00:00: [facility] 00 Medical Branch ACCU-CHEK 2022-0 Yes [facility] SOFTCLIX 4-07 ity of LANCETS 00:00: [facility] 00 Medical Branch ACCU-CHEK 2022-0 Yes [facility] SOFTCLIX 4-07 ity of LANCETS 00:00: [facility] 00 Medical Branch ACCU-CHEK 2022-0 Yes [facility] SOFTCLIX 4-07 ity of LANCETS 00:00: [facility] 00 Medical Branch ACCU-CHEK 2022-0 Yes [facility] SOFTCLIX 4-07 ity of LANCETS 00:00: [facility] 00 Medical Branch ACCU-CHEK 2022-0 Yes [facility] SOFTCLIX 4-07 ity of LANCETS 00:00: [facility] 00 Medical Branch ACCU-CHEK 2022-0 Yes [facility] SOFTCLIX 4-07 ity of LANCETS 00:00: [facility] 00 Medical Branch ACCU-CHEK 2022-0 Yes [facility] SOFTCLIX 4-07 ity of LANCETS 00:00: [facility] 00 Medical Branch ACCU-CHEK 2022-0 Yes [facility] SOFTCLIX 4-07 ity of LANCETS 00:00: [facility] 00 Medical Branch ACCU-CHEK 2022-0 Yes [facility] SOFTCLIX 4-07 ity of LANCETS 00:00: [facility] 00 Medical Branch ACCU-CHEK 2022-0 Yes [facility] SOFTCLIX 4-07 ity of LANCETS 00:00: [facility] 00 Medical Branch ACCU-CHEK 2022-0 Yes [facility] SOFTCLIX 4-07 ity of LANCETS 00:00: [facility] 00 Medical Branch ACCU-CHEK 2022-0 Yes [facility] SOFTCLIX 4-07 ity of LANCETS 00:00: [facility] 00 Medical Branch ACCU-CHEK 2022-0 Yes [facility] SOFTCLIX 4-07 ity of LANCETS 00:00: [facility] 00 Medical Branch ACCU-CHEK 2022-0 Yes [facility] SOFTCLIX 4-07 ity of LANCETS 00:00: [facility] 00 Medical Branch ACCU-CHEK 2022-0 Yes [facility] SOFTCLIX 4-07 ity of LANCETS 00:00: [facility] 00 Medical Branch ACCU-CHEK 2022-0 Yes [facility] SOFTCLIX 4-07 ity of LANCETS 00:00: [facility] 00 Medical Branch ACCU-CHEK 2022-0 Yes [facility] SOFTCLIX 4-07 ity of LANCETS 00:00: [facility] 00 Medical Branch ACCU-CHEK 2022-0 Yes [facility] SOFTCLIX 4-07 ity of LANCETS 00:00: [facility] 00 Medical Branch ACCU-CHEK 2022-0 Yes [facility] SOFTCLIX 4-07 ity of LANCETS 00:00: [facility] 00 Medical Branch ACCU-CHEK 2022-0 Yes [facility] SOFTCLIX 4-07 ity of LANCETS 00:00: [facility] 00 Medical Branch ACCU-CHEK 2022-0 Yes [facility] SOFTCLIX 4-07 ity of LANCETS 00:00: [facility] 00 Medical Branch ACCU-CHEK 2022-0 Yes [facility] SOFTCLIX 4-07 ity of LANCETS 00:00: [place] [address] Medical Branch ACCU-CHEK 2022-0 Yes [facility] SOFTCLIX 4-07 ity of LANCETS 00:00: [facility] 00 Medical Branch ACCU-CHEK 2022-0 Yes [facility] SOFTCLIX 4-07 ity of LANCETS 00:00: [facility] 00 Medical Branch ACCU-CHEK 2022-0 Yes [facility] SOFTCLIX 4-07 ity of LANCETS 00:00: [facility] 00 Medical Branch ACCU-CHEK 2022-0 Yes [facility] SOFTCLIX 4-07 ity of LANCETS 00:00: [facility] 00 Medical Branch ACCU-CHEK 2022-0 Yes [facility] SOFTCLIX 4-07 ity of LANCETS 00:00: [facility] 00 Medical Branch ACCU-CHEK 2022-0 Yes [facility] SOFTCLIX 4-07 ity of LANCETS 00:00: [facility] 00 Medical Branch ACCU-CHEK 2022-0 Yes [facility] SOFTCLIX 4-07 ity of LANCETS 00:00: [facility] 00 Medical Branch ACCU-CHEK 2022-0 Yes [facility] SOFTCLIX 4-07 ity of LANCETS 00:00: [facility] 00 Medical Branch ACCU-CHEK 2022-0 Yes [facility] SOFTCLIX 4-07 ity of LANCETS 00:00: [facility] 00 Medical Branch ACCU-CHEK 2022-0 Yes [facility] SOFTCLIX 4-07 ity of LANCETS 00:00: [facility] 00 Medical Branch ACCU-CHEK 2022-0 Yes [facility] SOFTCLIX 4-07 ity of LANCETS 00:00: [facility] 00 Medical Branch ACCU-CHEK 2022-0 Yes [facility] SOFTCLIX 4-07 ity of LANCETS 00:00: [facility] 00 Medical Branch ACCU-CHEK 2022-0 Yes [facility] SOFTCLIX 4-07 ity of LANCETS 00:00: [facility] 00 Medical Branch ACCU-CHEK 2022-0 Yes [facility] SOFTCLIX 4-07 ity of LANCETS 00:00: [facility] 00 Medical Branch ACCU-CHEK 2022-0 Yes [facility] SOFTCLIX 4-07 ity of LANCETS 00:00: [facility] 00 Medical Branch ACCU-CHEK 2022-0 Yes [facility] SOFTCLIX 4-07 ity of LANCETS 00:00: [facility] 00 Medical Branch ACCU-CHEK 2022-0 Yes [facility] SOFTCLIX 4-07 ity of LANCETS 00:00: [facility] 00 Medical Branch ACCU-CHEK 2022-0 Yes [facility] SOFTCLIX 4-07 ity of LANCETS 00:00: [facility] 00 Medical Branch ACCU-CHEK 2022-0 Yes [facility] SOFTCLIX 4-07 ity of LANCETS 00:00: [facility] 00 Medical Branch ACCU-CHEK 2022-0 Yes [facility] SOFTCLIX 4-07 ity of LANCETS 00:00: [facility] 00 Medical Branch ACCU-CHEK 2022-0 Yes [facility] SOFTCLIX 4-07 ity of LANCETS 00:00: [facility] 00 Medical Branch ACCU-CHEK 2022-0 Yes [facility] SOFTCLIX 4-07 ity of LANCETS 00:00: [facility] 00 Medical Branch ACCU-CHEK 2022-0 Yes [facility] SOFTCLIX 4-07 ity of LANCETS 00:00: [facility] 00 Medical Branch ACCU-CHEK 2022-0 Yes [facility] SOFTCLIX 4-07 ity of LANCETS 00:00: [facility] 00 Medical Branch ACCU-CHEK 2022-0 Yes [facility] SOFTCLIX 4-07 ity of LANCETS 00:00: [facility] 00 Medical Branch ACCU-CHEK 2022-0 Yes [facility] SOFTCLIX 4-07 ity of LANCETS 00:00: [facility] 00 Medical Branch ACCU-CHEK 2022-0 Yes [facility] SOFTCLIX 4-07 ity of LANCETS 00:00: [facility] 00 Medical Branch ACCU-CHEK 2022-0 Yes [facility] SOFTCLIX 4-07 ity of LANCETS 00:00: [facility] 00 Medical Branch ACCU-CHEK 2022-0 Yes [facility] SOFTCLIX 4-07 ity of LANCETS 00:00: [facility] 00 Medical Branch ACCU-CHEK 2022-0 Yes [facility] SOFTCLIX 4-07 ity of LANCETS 00:00: [facility] 00 Medical Branch ACCU-CHEK 2022-0 Yes [facility] SOFTCLIX 4-07 ity of LANCETS 00:00: [facility] 00 Medical Branch ACCU-CHEK 2-0 Yes [facility] SOFTCLIX 4-07 ity of LANCETS 00:00: [facility] 00 Medical Branch ACCU-CHEK 2-0 Yes [facility] SOFTCLIX 4-07 ity of LANCETS 00:00: [facility] 00 Medical Branch ACCU-CHEK 2021-0 Yes [facility] SOFTCLIX 4-07 ity of LANCETS 00:00: [facility] 00 Medical Branch blood sugar 2021-0 Yes [id number] Use as [facility] diagnostic 4-02 directed ity o f (ACCU-CHEK 00:00: [place] SMARTVIEW 00 Medical TEST STRIP) Branch strip blood sugar 2021-0 Yes [id number] Use as [facility] diagnostic 4-02 directed ity o f (ACCU-CHEK 00:00: [place] SMARTVIEW 00 Medical TEST STRIP) Branch strip blood sugar 2021-0 Yes [id number] Use as [facility] diagnostic 4-02 directed ity o f (ACCU-CHEK 00:00: [place] SMARTVIEW 00 Medical TEST STRIP) Branch strip blood sugar 2021-0 Yes [id number] Use as [facility] diagnostic 4-02 directed ity o f (ACCU-CHEK 00:00: [place] SMARTVIEW 00 Medical TEST STRIP) Branch strip blood sugar 2021-0 Yes [id number] Use as [facility] diagnostic 4-02 directed ity o f (ACCU-CHEK 00:00: [place] SMARTVIEW 00 Medical TEST STRIP) Branch strip blood sugar 2022-0 Yes [id number] Use as [facility] diagnostic 4-02 directed ity o f (ACCU-CHEK 00:00: [place] SMARTVIEW 00 Medical TEST STRIP) Branch strip blood sugar 2022-0 Yes [id number] Use as [facility] diagnostic 4-02 directed ity o f (ACCU-CHEK 00:00: [place] SMARTVIEW 00 Medical TEST STRIP) Branch strip blood sugar 2022-0 Yes [id number] Use as [facility] diagnostic 4-02 directed ity o f (ACCU-CHEK 00:00: [place] SMARTVIEW 00 Medical TEST STRIP) Branch strip blood sugar 2022-0 Yes [id number] Use as [facility] diagnostic 4- directed ity o f (ACCU-CHEK 00:00: [place] SMARTVIEW 00 Medical TEST STRIP) Branch strip blood sugar 2022-0 Yes [id number] Use as [facility] diagnostic 4- directed ity o f (ACCU-CHEK 00:00: [place] SMARTVIEW 00 Medical TEST STRIP) Branch strip blood sugar 2022-0 Yes [id number] Use as [facility] diagnostic 4-02 directed ity o f (ACCU-CHEK 00:00: [place] SMARTVIEW 00 Medical TEST STRIP) Branch strip blood sugar 2022-0 Yes [id number] Use as [facility] diagnostic 4-02 directed ity o f (ACCU-CHEK 00:00: [place] SMARTVIEW 00 Medical TEST STRIP) Branch strip blood sugar 2022-0 Yes [id number] Use as [facility] diagnostic 4-02 directed ity o f (ACCU-CHEK 00:00: [place] SMARTVIEW 00 Medical TEST STRIP) Branch strip blood sugar 2022-0 Yes [id number] Use as [facility] diagnostic 4-02 directed ity o f (ACCU-CHEK 00:00: [place] SMARTVIEW 00 Medical TEST STRIP) Branch strip blood sugar 2022-0 Yes [id number] Use as [facility] diagnostic 4-02 directed ity o f (ACCU-CHEK 00:00: [place] SMARTVIEW 00 Medical TEST STRIP) Branch strip blood sugar 2022-0 Yes [id number] Use as [facility] diagnostic 4-02 directed ity o f (ACCU-CHEK 00:00: [place] SMARTVIEW 00 Medical TEST STRIP) Branch strip blood sugar 2022-0 Yes [id number] Use as [facility] diagnostic 4-02 directed ity o f (ACCU-CHEK 00:00: [place] SMARTVIEW 00 Medical TEST STRIP) Branch strip blood sugar 2021-0 Yes [id number] Use as [facility] diagnostic 4-02 directed ity o f (ACCU-CHEK 00:00: [place] SMARTVIEW 00 Medical TEST STRIP) Branch strip blood sugar 2021-0 Yes [id number] Use as [facility] diagnostic 4-02 directed ity o f (ACCU-CHEK 00:00: [place] SMARTVIEW 00 Medical TEST STRIP) Branch strip blood sugar 2021-0 Yes [id number] Use as [facility] diagnostic 4-02 directed ity o f (ACCU-CHEK 00:00: [place] SMARTVIEW 00 Medical TEST STRIP) Branch strip blood sugar 2021-0 Yes [id number] Use as [facility] diagnostic 4- directed ity o f (ACCU-CHEK 00:00: [place] SMARTVIEW 00 Medical TEST STRIP) Branch strip blood sugar 2021-0 Yes [id number] Use as [facility] diagnostic 4- directed ity o f (ACCU-CHEK 00:00: [place] SMARTVIEW 00 Medical TEST STRIP) Branch strip blood sugar 2021-0 Yes [id number] Use as [facility] diagnostic 4- directed ity o f (ACCU-CHEK 00:00: [place] SMARTVIEW 00 Medical TEST STRIP) Branch strip blood sugar 2021-0 Yes [id number] Use as [facility] diagnostic 4-02 directed ity o f (ACCU-CHEK 00:00: [place] SMARTVIEW 00 Medical TEST STRIP) Branch strip blood sugar 2021-0 Yes [id number] Use as [facility] diagnostic 4-02 directed ity o f (ACCU-CHEK 00:00: [place] SMARTVIEW 00 Medical TEST STRIP) Branch strip blood sugar 2-0 Yes [id number] Use as [facility] diagnostic 4-02 directed ity o f (ACCU-CHEK 00:00: [place] SMARTVIEW 00 Medical TEST STRIP) Branch strip blood sugar 2-0 Yes [id number] Use as [facility] diagnostic 4-02 directed ity o f (ACCU-CHEK 00:00: [place] SMARTVIEW 00 Medical TEST STRIP) Branch strip blood sugar 2-0 Yes [id number] Use as [facility] diagnostic 4-02 directed ity o f (ACCU-CHEK 00:00: [place] SMARTVIEW 00 Medical TEST STRIP) Branch strip blood sugar 2022-0 Yes [id number] Use as [facility] diagnostic 4-02 directed ity o f (ACCU-CHEK 00:00: [place] SMARTVIEW 00 Medical TEST STRIP) Branch strip blood sugar 2022-0 Yes [id number] Use as [facility] diagnostic 4- directed ity o f (ACCU-CHEK 00:00: [place] SMARTVIEW 00 Medical TEST STRIP) Branch strip blood sugar 2022-0 Yes [id number] Use as [facility] diagnostic 4- directed ity o f (ACCU-CHEK 00:00: [place] SMARTVIEW 00 Medical TEST STRIP) Branch strip blood sugar 2021-0 Yes [id number] Use as [facility] diagnostic 4- directed ity o f (ACCU-CHEK 00:00: [place] SMARTVIEW 00 Medical TEST STRIP) Branch strip blood sugar 2-0 Yes [id number] Use as [facility] diagnostic 4- directed ity o f (ACCU-CHEK 00:00: [place] SMARTVIEW 00 Medical TEST STRIP) Branch strip blood sugar 2021-0 Yes [id number] Use as [facility] diagnostic 4- directed ity o f (ACCU-CHEK 00:00: [place] SMARTVIEW 00 Medical TEST STRIP) Branch strip blood sugar 2-0 Yes [id number] Use as [facility] diagnostic 4- directed ity o f (ACCU-CHEK 00:00: [place] SMARTVIEW 00 Medical TEST STRIP) Branch strip blood sugar 2022-0 Yes [id number] Use as [facility] diagnostic 4- directed ity o f (ACCU-CHEK 00:00: [place] SMARTVIEW 00 Medical TEST STRIP) Branch strip blood sugar 2022-0 Yes [id number] Use as [facility] diagnostic 4- directed ity o f (ACCU-CHEK 00:00: [place] SMARTVIEW 00 Medical TEST STRIP) Branch strip blood sugar 2022-0 Yes [id number] Use as [facility] diagnostic 4-02 directed ity o f (ACCU-CHEK 00:00: [place] SMARTVIEW 00 Medical TEST STRIP) Branch strip blood sugar 2022-0 Yes [id number] Use as [facility] diagnostic 4-02 directed ity o f (ACCU-CHEK 00:00: [place] SMARTVIEW 00 Medical TEST STRIP) Branch strip blood sugar 2022-0 Yes [id number] Use as [facility] diagnostic 4-02 directed ity o f (ACCU-CHEK 00:00: [place] SMARTVIEW 00 Medical TEST STRIP) Branch strip blood sugar 2022-0 Yes [id number] Use as [facility] diagnostic 4-02 directed ity o f (ACCU-CHEK 00:00: [place] SMARTVIEW 00 Medical TEST STRIP) Branch strip blood sugar 2022-0 Yes [id number] Use as [facility] diagnostic 4- directed ity o f (ACCU-CHEK 00:00: [place] SMARTVIEW 00 Medical TEST STRIP) Branch strip blood sugar 2022-0 Yes [id number] Use as [facility] diagnostic 4- directed ity o f (ACCU-CHEK 00:00: [place] SMARTVIEW 00 Medical TEST STRIP) Branch strip blood sugar 2022-0 Yes [id number] Use as [facility] diagnostic 4- directed ity o f (ACCU-CHEK 00:00: [place] SMARTVIEW 00 Medical TEST STRIP) Branch strip blood sugar 2022-0 Yes [id number] Use as [facility] diagnostic 4- directed ity o f (ACCU-CHEK 00:00: [place] SMARTVIEW 00 Medical TEST STRIP) Branch strip blood sugar 2022-0 Yes [id number] Use as [facility] diagnostic 4- directed ity o f (ACCU-CHEK 00:00: [place] SMARTVIEW 00 Medical TEST STRIP) Branch strip blood sugar 2022-0 Yes [id number] Use as [facility] diagnostic 4- directed ity o f (ACCU-CHEK 00:00: [place] SMARTVIEW 00 Medical TEST STRIP) Branch strip blood sugar 2022-0 Yes [id number] Use as [facility] diagnostic 4- directed ity o f (ACCU-CHEK 00:00: [place] SMARTVIEW 00 Medical TEST STRIP) Branch strip blood sugar 2022-0 Yes [id number] Use as [facility] diagnostic 4-02 directed ity o f (ACCU-CHEK 00:00: [place] SMARTVIEW 00 Medical TEST STRIP) Branch strip blood sugar 2022-0 Yes [id number] Use as [facility] diagnostic 4-02 directed ity o f (ACCU-CHEK 00:00: [place] SMARTVIEW 00 Medical TEST STRIP) Branch strip blood sugar 2022-0 Yes [id number] Use as [facility] diagnostic 4-02 directed ity o f (ACCU-CHEK 00:00: [place] SMARTVIEW 00 Medical TEST STRIP) Branch strip blood sugar 2022-0 Yes [id number] Use as [facility] diagnostic 4-02 directed ity o f (ACCU-CHEK 00:00: [place] SMARTVIEW 00 Medical TEST STRIP) Branch strip blood sugar 2021-0 Yes [id number] Use as [facility] diagnostic 4-02 directed ity o f (ACCU-CHEK 00:00: [place] SMARTVIEW 00 Medical TEST STRIP) Branch strip blood sugar 2021-0 Yes [id number] Use as [facility] diagnostic 4- directed ity o f (ACCU-CHEK 00:00: [place] SMARTVIEW 00 Medical TEST STRIP) Branch strip blood sugar 2021-0 Yes [id number] Use as [facility] diagnostic 4- directed ity o f (ACCU-CHEK 00:00: [place] SMARTVIEW 00 Medical TEST STRIP) Branch strip blood sugar 2021-0 Yes [id number] Use as [facility] diagnostic 4- directed ity o f (ACCU-CHEK 00:00: [place] SMARTVIEW 00 Medical TEST STRIP) Branch strip blood sugar 2021-0 Yes [id number] Use as [facility] diagnostic 4- directed ity o f (ACCU-CHEK 00:00: [place] SMARTVIEW 00 Medical TEST STRIP) Branch strip blood sugar 2021-0 Yes [id number] Use as [facility] diagnostic 4- directed ity o f (ACCU-CHEK 00:00: [place] SMARTVIEW 00 Medical TEST STRIP) Branch strip blood sugar 2021-0 Yes [id number] Use as [facility] diagnostic 4- directed ity o f (ACCU-CHEK 00:00: [place] SMARTVIEW 00 Medical TEST STRIP) Branch strip blood sugar 2021-0 Yes [id number] Use as [facility] diagnostic 4-02 directed ity o f (ACCU-CHEK 00:00: [place] SMARTVIEW 00 Medical TEST STRIP) Branch strip blood sugar 2-0 Yes [id number] Use as [facility] diagnostic 4-02 directed ity o f (ACCU-CHEK 00:00: [place] SMARTVIEW 00 Medical TEST STRIP) Branch strip blood sugar 2-0 Yes [id number] Use as [facility] diagnostic 4-02 directed ity o f (ACCU-CHEK 00:00: [place] SMARTVIEW 00 Medical TEST STRIP) Branch strip blood sugar 2022-0 Yes [id number] Use as [facility] diagnostic 4-02 directed ity o f (ACCU-CHEK 00:00: [place] SMARTVIEW 00 Medical TEST STRIP) Branch strip blood sugar 2021-0 Yes [id number] Use as [facility] diagnostic 08-12 directed ity o f (ACCU-CHEK 00:00: [place] SMARTVIEW 00 Medical TEST STRIP) Branch strip blood sugar 2021-0 Yes [id number] Use as [facility] diagnostic 08-12 directed ity o f (ACCU-CHEK 00:00: [place] SMARTVIEW 00 Medical TEST STRIP) Branch strip blood sugar 2021-0 3- No [id number] Use as [facility] diagnostic 08-12 directed ity of (ACCU-CHEK 00:00: 00:00 [place] SMARTVIEW 00 :00 Medical TEST STRIP) Branch strip blood sugar 2021-0 2022- No [id number] Use as [facility] diagnostic 08-12 directed ity of (ACCU-CHEK 00:00: 00:00 [place] SMARTVIEW 00 :00 Medical TEST STRIP) Branch strip blood sugar 2021-0 3- No [id number] Use as [facility] diagnostic 08-12 directed ity of (ACCU-CHEK 00:00: 00:00 [place] SMARTVIEW 00 :00 Medical TEST STRIP) Branch strip blood sugar 2021-0 3- No [id number] Use as [facility] diagnostic 08-12 directed ity of (ACCU-CHEK 00:00: 00:00 [place] SMARTVIEW 00 :00 Medical TEST STRIP) Branch strip rosuvastati 0 Yes [id number] 5mg Take 1 [facility] n 5 mg 3-23 tablet by ity of tablet 00:00: mouth [place] 00 daily. Medical Branch rosuvastati 0 Yes [id number] 5mg Take 1 [facility] n 5 mg 3-23 tablet by ity of tablet 00:00: mouth [place] 00 daily. Medical Branch rosuvastati 2021-0 Yes [id number] 5mg Take 1 [facility] n 5 mg 3-23 tablet by ity of tablet 00:00: mouth [place] 00 daily. Medical Branch rosuvastati 0 Yes [id number] 5mg Take 1 [facility] n 5 mg 3-23 tablet by ity of tablet 00:00: mouth [place] 00 daily. Medical Branch rosuvastati 2021-0 Yes [id number] 5mg Take 1 [facility] n 5 mg 3-23 tablet by ity of tablet 00:00: mouth [place] 00 daily. [facility] rosuvastati Yes [id number] 5mg Take 1 [facility] n 5 mg 3-23 tablet by ity of tablet 00:00: mouth [place] 00 daily. [facility] rosuvastati Yes [id number] 5mg Take 1 [facility] n 5 mg 3-23 tablet by ity of tablet 00:00: mouth [place] 00 daily. [facility] rosuvastati Yes [id number] 5mg Take 1 [facility] n 5 mg 3-23 tablet by ity of tablet 00:00: mouth [place] 00 daily. [facility] rosuvastati Yes [id number] 5mg Take 1 [facility] n 5 mg 3-23 tablet by ity of tablet 00:00: mouth [place] 00 daily. [facility] rosuvastati Yes [id number] 5mg Take 1 [facility] n 5 mg 3-23 tablet by ity of tablet 00:00: mouth [place] 00 daily. [facility] rosuvastati Yes [id number] 5mg Take 1 [facility] n 5 mg 3-23 tablet by ity of tablet 00:00: mouth [place] 00 daily. [facility] rosuvastati Yes [id number] 5mg Take 1 [facility] n 5 mg 3-23 tablet by ity of tablet 00:00: mouth [place] 00 daily. [facility] rosuvastati Yes [id number] 5mg Take 1 [facility] n 5 mg 3-23 tablet by ity of tablet 00:00: mouth [place] 00 daily. [facility] rosuvastati Yes [id number] 5mg Take 1 [facility] n 5 mg 3-23 tablet by ity of tablet 00:00: mouth [place] 00 daily. [facility] rosuvastati Yes [id number] 5mg Take 1 [facility] n 5 mg 3-23 tablet by ity of tablet 00:00: mouth [place] 00 daily. [facility] rosuvastati Yes [id number] 5mg Take 1 [facility] n 5 mg 3-23 tablet by ity of tablet 00:00: mouth [place] 00 daily. [facility] rosuvastati Yes [id number] 5mg Take 1 [facility] n 5 mg 3-23 tablet by ity of tablet 00:00: mouth [place] 00 daily. [facility] rosuvastati Yes [id number] 5mg Take 1 [facility] n 5 mg 3-23 tablet by ity of tablet 00:00: mouth [place] 00 daily. [facility] rosuvastati Yes [id number] 5mg Take 1 [facility] n 5 mg 3-23 tablet by ity of tablet 00:00: mouth [place] 00 daily. [facility] rosuvastati Yes [id number] 5mg Take 1 [facility] n 5 mg 3-23 tablet by ity of tablet 00:00: mouth [place] 00 daily. [facility] rosuvastati Yes [id number] 5mg Take 1 [facility] n 5 mg 3-23 tablet by ity of tablet 00:00: mouth [place] 00 daily. [facility] rosuvastati Yes [id number] 5mg Take 1 [facility] n 5 mg 3-23 tablet by ity of tablet 00:00: mouth [place] 00 daily. [facility] rosuvastati Yes [id number] 5mg Take 1 [facility] n 5 mg 3-23 tablet by ity of tablet 00:00: mouth [place] 00 daily. [facility] rosuvastati Yes [id number] 5mg Take 1 [facility] n 5 mg 3-23 tablet by ity of tablet 00:00: mouth [place] 00 daily. [facility] rosuvastati Yes [id number] 5mg Take 1 [facility] n 5 mg 3-23 tablet by ity of tablet 00:00: mouth [place] 00 daily. [facility] rosuvastati Yes [id number] 5mg Take 1 [facility] n 5 mg 3-23 tablet by ity of tablet 00:00: mouth [place] 00 daily. [facility] rosuvastati Yes [id number] 5mg Take 1 [facility] n 5 mg 3-23 tablet by ity of tablet 00:00: mouth [place] 00 daily. [facility] rosuvastati Yes [id number] 5mg Take 1 [facility] n 5 mg 3-23 tablet by ity of tablet 00:00: mouth [place] 00 daily. [facility] rosuvastati Yes [id number] 5mg Take 1 [facility] n 5 mg 3-23 tablet by ity of tablet 00:00: mouth [place] 00 daily. [facility] rosuvastati Yes [id number] 5mg Take 1 [facility] n 5 mg 3-23 tablet by ity of tablet 00:00: mouth [place] 00 daily. [facility] rosuvastati Yes [id number] 5mg Take 1 [facility] n 5 mg 3-23 tablet by ity of tablet 00:00: mouth [place] 00 daily. [facility] rosuvastati Yes [id number] 5mg Take 1 [facility] n 5 mg 3-23 tablet by ity of tablet 00:00: mouth [place] 00 daily. [facility] rosuvastati Yes [id number] 5mg Take 1 [facility] n 5 mg 3-23 tablet by ity of tablet 00:00: mouth [place] 00 daily. [facility] rosuvastati Yes [id number] 5mg Take 1 [facility] n 5 mg 3-23 tablet by ity of tablet 00:00: mouth [place] 00 daily. [facility] rosuvastati Yes [id number] 5mg Take 1 [facility] n 5 mg 3-23 tablet by ity of tablet 00:00: mouth [place] 00 daily. [facility] rosuvastati Yes [id number] 5mg Take 1 [facility] n 5 mg 3-23 tablet by ity of tablet 00:00: mouth [place] 00 daily. [facility] rosuvastati Yes [id number] 5mg Take 1 [facility] n 5 mg 3-23 tablet by ity of tablet 00:00: mouth [place] 00 daily. [facility] rosuvastati Yes [id number] 5mg Take 1 [facility] n 5 mg 3-23 tablet by ity of tablet 00:00: mouth [place] 00 daily. [facility] rosuvastati Yes [id number] 5mg Take 1 [facility] n 5 mg 3-23 tablet by ity of tablet 00:00: mouth [place] 00 daily. [facility] rosuvastati Yes [id number] 5mg Take 1 [facility] n 5 mg 3-23 tablet by ity of tablet 00:00: mouth [place] 00 daily. [facility] rosuvastati Yes [id number] 5mg Take 1 [facility] n 5 mg 3-23 tablet by ity of tablet 00:00: mouth [place] 00 daily. [facility] rosuvastati Yes [id number] 5mg Take 1 [facility] n 5 mg 3-23 tablet by ity of tablet 00:00: mouth [place] 00 daily. [facility] rosuvastati Yes [id number] 5mg Take 1 [facility] n 5 mg 3-23 tablet by ity of tablet 00:00: mouth [place] 00 daily. [facility] rosuvastati Yes [id number] 5mg Take 1 [facility] n 5 mg 3-23 tablet by ity of tablet 00:00: mouth [place] 00 daily. [facility] rosuvastati Yes [id number] 5mg Take 1 [facility] n 5 mg 3-23 tablet by ity of tablet 00:00: mouth [place] 00 daily. [facility] rosuvastati Yes [id number] 5mg Take 1 [facility] n 5 mg 3-23 tablet by ity of tablet 00:00: mouth [place] 00 daily. [facility] rosuvastati Yes [id number] 5mg Take 1 [facility] n 5 mg 3-23 tablet by ity of tablet 00:00: mouth [place] 00 daily. [facility] rosuvastati Yes [id number] 5mg Take 1 [facility] n 5 mg 3-23 tablet by ity of tablet 00:00: mouth [place] 00 daily. [facility] rosuvastati Yes [id number] 5mg Take 1 [facility] n 5 mg 3-23 tablet by ity of tablet 00:00: mouth [place] 00 daily. [facility] rosuvastati Yes [id number] 5mg Take 1 [facility] n 5 mg 3-23 tablet by ity of tablet 00:00: mouth [place] 00 daily. [facility] rosuvastati Yes [id number] 5mg Take 1 [facility] n 5 mg 3-23 tablet by ity of tablet 00:00: mouth [place] 00 daily. [facility] rosuvastati Yes [id number] 5mg Take 1 [facility] n 5 mg 3-23 tablet by ity of tablet 00:00: mouth [place] 00 daily. [facility] rosuvastati Yes [id number] 5mg Take 1 [facility] n 5 mg 3-23 tablet by ity of tablet 00:00: mouth [place] 00 daily. [facility] rosuvastati Yes [id number] 5mg Take 1 [facility] n 5 mg 3-23 tablet by ity of tablet 00:00: mouth [place] 00 daily. [facility] rosuvastati Yes [id number] 5mg Take 1 [facility] n 5 mg 3-23 tablet by ity of tablet 00:00: mouth [place] 00 daily. [facility] rosuvastati Yes [id number] 5mg Take 1 [facility] n 5 mg 3-23 tablet by ity of tablet 00:00: mouth [place] 00 daily. [facility] rosuvastati Yes [id number] 5mg Take 1 [facility] n 5 mg 3-23 tablet by ity of tablet 00:00: mouth [place] 00 daily. [facility] rosuvastati Yes [id number] 5mg Take 1 [facility] n 5 mg 3-23 tablet by ity of tablet 00:00: mouth [place] 00 daily. [facility] rosuvastati Yes [id number] 5mg Take 1 [facility] n 5 mg 3-23 tablet by ity of tablet 00:00: mouth [place] 00 daily. [facility] rosuvastati Yes [id number] 5mg Take 1 [facility] n 5 mg 3-23 tablet by ity of tablet 00:00: mouth [place] 00 daily. [facility] rosuvastati Yes [id number] 5mg Take 1 [facility] n 5 mg 3-23 tablet by ity of tablet 00:00: mouth [place] 00 daily. [facility] rosuvastati Yes [id number] 5mg Take 1 [facility] n 5 mg 3-23 tablet by ity of tablet 00:00: mouth [place] 00 daily. [facility] rosuvastati Yes [id number] 5mg Take 1 [facility] n 5 mg 3-23 tablet by ity of tablet 00:00: mouth [place] 00 daily. [facility] rosuvastati Yes [id number] 5mg Take 1 [facility] n 5 mg 3-23 tablet by ity of tablet 00:00: mouth [place] 00 daily. [facility] rosuvastati Yes [id number] 5mg Take 1 [facility] n 5 mg [...] mouth 4 ity of tablet 00:00: (four) [place] 00 times Medical daily. Branch pantoprazol 2-0 Yes 40mg Take 40 mg Univers e 40 mg EC 3-18 by mouth ity o f tablet 00:00: daily. [place] [facility] ondansetron 2-0 Yes TAKE 1 Univ ers 4 mg tablet 3-18 TABLET BY ity of 00:00: MOUTH [place] 00 EVERY 12 Medical HOURS Branch NEEDED dicyclomine 2-0 Yes 20mg Take 20 mg [facility] 20 mg 3-18 by mouth 4 ity of tablet 00:00: (four) [place] 00 times Medical daily. Branch pantoprazol 2-0 Yes 40mg Take 40 mg [facility] e 40 mg EC 3-18 by mouth ity o f tablet 00:00: daily. [place] [facility] ondansetron 2-0 Yes TAKE 1 [facility] ers 4 mg tablet 3-18 TABLET BY ity of 00:00: MOUTH [place] 00 EVERY 12 Medical HOURS Branch NEEDED dicyclomine 2-0 Yes 20mg Take 20 mg [facility] 20 mg 3-18 by mouth 4 ity of tablet 00:00: (four) [place] 00 times Medical daily. Branch pantoprazol 2-0 Yes 40mg Take 40 mg [facility] e 40 mg EC 3-18 by mouth ity o f tablet 00:00: daily. [place] [facility] ondansetron 2-0 Yes TAKE 1 [facility] ers 4 mg tablet 3-18 TABLET BY ity of 00:00: MOUTH [place] 00 EVERY 12 Medical HOURS Branch NEEDED dicyclomine 2-0 Yes 20mg Take 20 mg [facility] 20 mg 3-18 by mouth 4 ity of tablet 00:00: (four) [place] 00 times Medical daily. Branch pantoprazol 2-0 Yes 40mg Take 40 mg [facility] e 40 mg EC 3-18 by mouth ity o f tablet 00:00: daily. [place] [facility] ondansetron 2022-0 Yes TAKE 1 Univ ers 4 mg tablet 3-18 TABLET BY ity of 00:00: MOUTH [place] 00 EVERY 12 Medical HOURS Branch NEEDED dicyclomine 2022-0 Yes 20mg Take 20 mg [facility] 20 mg 3-18 by mouth 4 ity of tablet 00:00: (four) [place] 00 times Medical daily. Branch pantoprazol 2022-0 Yes 40mg Take 40 mg [facility] e 40 mg EC 3-18 by mouth ity o f tablet 00:00: daily. [place] [facility] ondansetron 2022-0 Yes TAKE 1 Univ ers 4 mg tablet 3-18 TABLET BY ity of 00:00: MOUTH [place] EVERY 12 Medical HOURS Branch NEEDED dicyclomine 2022-0 Yes 20mg Take 20 mg [facility] 20 mg 3-18 by mouth 4 ity of tablet 00:00: (four) [place] times Medical daily. Branch pantoprazol 2-0 Yes 40mg Take 40 mg [facility] e 40 mg EC 3-18 by mouth ity o f tablet 00:00: daily. [place] [facility] ondansetron 2-0 Yes TAKE 1 Univ ers 4 mg tablet 3-18 TABLET BY ity of 00:00: MOUTH [place] EVERY 12 Medical HOURS Branch NEEDED dicyclomine 2-0 Yes 20mg Take 20 mg [facility] 20 mg 3-18 by mouth 4 ity of tablet 00:00: (four) [place] times Medical daily. Branch pantoprazol 2-0 Yes 40mg Take 40 mg [facility] e 40 mg EC 3-18 by mouth ity o f tablet 00:00: daily. [place] [facility] ondansetron 2-0 Yes TAKE 1 Univ ers 4 mg tablet 3-18 TABLET BY ity of 00:00: MOUTH [place] EVERY 12 Medical HOURS Branch NEEDED dicyclomine 2-0 Yes 20mg Take 20 mg [facility] 20 mg 3-18 by mouth 4 ity of tablet 00:00: (four) [place] times Medical daily. Branch pantoprazol 2-0 Yes 40mg Take 40 mg [facility] e 40 mg EC 3-18 by mouth ity o f tablet 00:00: daily. [place] [facility] ondansetron 2022-0 Yes TAKE 1 [facility] ers 4 mg tablet 3-18 TABLET BY ity of 00:00: MOUTH [place] EVERY 12 Medical HOURS Branch NEEDED dicyclomine 2-0 Yes 20mg Take 20 mg [facility] 20 mg 3-18 by mouth 4 ity of tablet 00:00: (four) [place] 00 times Medical daily. Branch pantoprazol 2-0 Yes 40mg Take 40 mg [facility] e 40 mg EC 3-18 by mouth ity o f tablet 00:00: daily. [place] 00 Medical Branch ondansetron 0 Yes TAKE 1 [facility] ers 4 mg tablet 07-28 TABLET BY ity of 00:00: MOUTH [place] 00 EVERY 12 Medical HOURS Branch NEEDED dicyclomine 2-0 Yes 20mg Take 20 mg [facility] 20 mg -18 by mouth 4 ity of tablet 00:00: (four) [place] 00 times Medical daily. Branch pantoprazol 2021-2021- No 40mg Take 40 mg [facility] e 40 mg EC 07-28 by mouth ity of tablet 00:00: 00:00 daily. [place] 00 :00 Medical Branch ondansetron 2021-0 2021- No TAKE 1 Uni vers 4 mg tablet 07-28 TABLET BY it y of 00:00: 00:00 MOUTH [place] 00 :00 EVERY 12 Medical HOURS Branch NEEDED dicyclomine 2021-0 2021- No 20mg Take 20 mg [facility] 20 mg 07-28 by mouth 4 ity of tablet 00:00: 00:00 (four) [place] 00 :00 times Medical daily. Branch pantoprazol 2021-0 2021- No 40mg Take 40 mg [facility] e 40 mg EC 07-28 by mouth ity of tablet 00:00: 00:00 daily. [place] 00 :00 Medical Branch ondansetron 2021-0 2021- No TAKE 1 Uni vers 4 mg tablet 07-28 TABLET BY it y of 00:00: 00:00 MOUTH [place] 00 :00 EVERY 12 Medical HOURS Branch NEEDED dicyclomine 2-0 2021- No 20mg Take 20 mg [facility] 20 mg 07-28 by mouth 4 ity of tablet 00:00: 00:00 (four) [place] 00 :00 times Medical daily. Branch montelukast 0 Yes 10mg Take 10 [...] [place] tablet 11 Medical Branch metFORMIN 2021-0 2- No [id number] 1000mg Take 1 Univers 1,000 mg 3-04 - tablet by ity o f tablet 00:00: 00:00 mouth 2 [place] 00 :00 (two) Medical times Branch daily with meals. cyclobenzap 2021-0 Yes TAKE 1 Univ ers [...] :00 TWICE Medical DAILY Branch DIRECTED albuterol 2019- Yes [id number] 2{puff} Inhale 2 Univers (PROAIR 2-17 Puffs ity of HFA) 90 00:00: every 6 [place] mcg/actuati 00 (six) Medical on inhaler hours as Branc h needed for Wheezing, Shortness of Breath or Chest tightness. albuterol 2018-05 Yes [id number] 2{puff} Inhale 2 Univers (PROAIR 2-17 Puffs ity of HFA) 90 00:00: every 6 [place] mcg/actuati 00 (six) Medical on inhaler hours as Branc h needed for Wheezing, Shortness of Breath or Chest tightness. albuterol 2018-05 Yes [id number] 2{puff} Inhale 2 [facility] (PROAIR 2-17 Puffs ity of HFA) 90 00:00: every 6 [place] mcg/actuati 00 (six) Medical on inhaler hours as Branc h needed for Wheezing, Shortness of Breath or Chest tightness. albuterol 2018-05 Yes [id number] 2{puff} Inhale 2 [facility] (PROAIR 2-17 Puffs ity of HFA) 90 00:00: every 6 [place] mcg/actuati 00 (six) Medical on inhaler hours as Branc h needed for Wheezing, Shortness of Breath or Chest tightness. albuterol 2018-05 Yes [id number] 2{puff} Inhale 2 [facility] (PROAIR 2-17 Puffs ity of HFA) 90 00:00: every 6 [place] mcg/actuati 00 (six) Medical on inhaler hours as Branc h needed for Wheezing, Shortness of Breath or Chest tightness. albuterol 2018-05 Yes [id number] 2{puff} Inhale 2 [facility] (PROAIR 2-17 Puffs ity of HFA) 90 00:00: every 6 [place] mcg/actuati 00 (six) Medical on inhaler hours as Branc h needed for Wheezing, Shortness of Breath or Chest tightness. albuterol 2018-05 Yes [id number] 2{puff} Inhale 2 [facility] (PROAIR 2-17 Puffs ity of HFA) 90 00:00: every 6 [place] mcg/actuati 00 (six) Medical on inhaler hours as Branc h needed for Wheezing, Shortness of Breath or Chest tightness. albuterol 2018-05 Yes [id number] 2{puff} Inhale 2 [facility] (PROAIR 2-17 Puffs ity of HFA) 90 00:00: every 6 [place] mcg/actuati 00 (six) Medical on inhaler hours as Branc h needed for Wheezing, Shortness of Breath or Chest tightness. albuterol 2018-05 Yes [id number] 2{puff} Inhale 2 [facility] (PROAIR 2-17 Puffs ity of HFA) 90 00:00: every 6 [place] mcg/actuati 00 (six) Medical on inhaler hours as Branc h needed for Wheezing, Shortness of Breath or Chest tightness. albuterol 2018-05 Yes [id number] 2{puff} Inhale 2 [facility] (PROAIR 2-17 Puffs ity of HFA) 90 00:00: every 6 [place] mcg/actuati 00 (six) Medical on inhaler hours as Branc h needed for Wheezing, Shortness of Breath or Chest tightness. albuterol 2018-05 Yes [id number] 2{puff} Inhale 2 [facility] (PROAIR 2-17 Puffs ity of HFA) 90 00:00: every 6 [place] mcg/actuati 00 (six) Medical on inhaler hours as Branc h needed for Wheezing, Shortness of Breath or Chest tightness. albuterol 2018-05 Yes [id number] 2{puff} Inhale 2 [facility] (PROAIR 2-17 Puffs ity of HFA) 90 00:00: every 6 [place] mcg/actuati 00 (six) Medical on inhaler hours as Branc h needed for Wheezing, Shortness of Breath or Chest tightness. albuterol 2018-05 Yes [id number] 2{puff} Inhale 2 [facility] (PROAIR 2-17 Puffs ity of HFA) 90 00:00: every 6 [place] mcg/actuati 00 (six) Medical on inhaler hours as Branc h needed for Wheezing, Shortness of Breath or Chest tightness. albuterol 2018-05 Yes [id number] 2{puff} Inhale 2 [facility] (PROAIR 2-17 Puffs ity of HFA) 90 00:00: every 6 [place] mcg/actuati 00 (six) Medical on inhaler hours as Branc h needed for Wheezing, Shortness of Breath or Chest tightness. albuterol 2018-05 Yes [id number] 2{puff} Inhale 2 [facility] (PROAIR 2-17 Puffs ity of HFA) 90 00:00: every 6 [place] mcg/actuati 00 (six) Medical on inhaler hours as Branc h needed for Wheezing, Shortness of Breath or Chest tightness. albuterol 2018-05 Yes [id number] 2{puff} Inhale 2 [facility] (PROAIR 2-17 Puffs ity of HFA) 90 00:00: every 6 [place] mcg/actuati 00 (six) Medical on inhaler hours as Branc h needed for Wheezing, Shortness of Breath or Chest tightness. albuterol 2018-05 Yes [id number] 2{puff} Inhale 2 [facility] (PROAIR 2-17 Puffs ity of HFA) 90 00:00: every 6 [place] mcg/actuati 00 (six) Medical on inhaler hours as Branc h needed for Wheezing, Shortness of Breath or Chest tightness. albuterol 2018-05 Yes [id number] 2{puff} Inhale 2 [facility] (PROAIR 2-17 Puffs ity of HFA) 90 00:00: every 6 [place] mcg/actuati 00 (six) Medical on inhaler hours as Branc h needed for Wheezing, Shortness of Breath or Chest tightness. albuterol 2018-05 Yes [id number] 2{puff} Inhale 2 [facility] (PROAIR 2-17 Puffs ity of HFA) 90 00:00: every 6 [place] mcg/actuati 00 (six) Medical on inhaler hours as Branc h needed for Wheezing, Shortness of Breath or Chest tightness. albuterol 2018-05 Yes [id number] 2{puff} Inhale 2 [facility] (PROAIR 2-17 Puffs ity of HFA) 90 00:00: every 6 [place] mcg/actuati 00 (six) Medical on inhaler hours as Branc h needed for Wheezing, Shortness of Breath or Chest tightness. albuterol 2018-05- No [id number] 2{puff} Inhale 2 [facility] (PROAIR 2-17 11-22 Puffs ity of HFA) 90 00:00: 00:00 every 6 [place] mcg/actuati 00 :00 (six) Medical on inhaler hours as Branc h needed for Wheezing, Shortness of Breath or Chest tightness. albuterol 2018-05- No [id number] 2{puff} Inhale 2 [facility] (PROAIR 2-17 11-22 Puffs ity of HFA) 90 00:00: 00:00 every 6 [place] mcg/actuati 00 :00 (six) Medical on inhaler hours as Branc h needed for Wheezing, Shortness of Breath or Chest tightness. albuterol 2018-05- No [id number] 2{puff} Inhale 2 [facility] (PROAIR 2-17 11-22 Puffs ity of HFA) 90 00:00: 00:00 every 6 [place] mcg/actuati 00 :00 (six) Medical on inhaler hours as Branc h needed for Wheezing, Shortness of Breath or Chest tightness. albuterol 2018-05- No [id number] 2{puff} Inhale 2 [facility] (PROAIR 2-17 11-22 Puffs ity of HFA) 90 00:00: 00:00 every 6 [place] mcg/actuati 00 :00 (six) Medical on inhaler hours as Branc h needed for Wheezing, Shortness of Breath or Chest tightness. albuterol 2018-05- No [id number] 2{puff} Inhale 2 [facility] (PROAIR 2-17 11-22 [...] 09 l LYRICA 200 2017- Yes 1{tbl} Q.[id number] Take 1 [id number] 00:00: 3D [facility] ([facility]) l times a day. LYRICA 200 Yes 1{tbl} Q.[id number] Take 1 [facility]-[id number] 00:00: 3D mouth [facility] 00 (three) l times a day. LYRICA 200 Yes 1{tbl} Q.[id number] Take 1 [facility] 5-[id number] 00:00: 3D mouth [facility] 00 (three) l times a day. LYRICA 200 Yes 1{tbl} Q.[id number] Take 1 [facility] 5-[id number] 00:00: 3D mouth 3 [facility] 00 (three) l times a day. LYRICA 200 Yes 1{tbl} Q.[id number] Take 1 [facility] 5-[id number] 00:00: 3D mouth 3 [facility] 00 (three) l times a day. LYRICA 200 Yes 1{tbl} Q.[id number] Take 1 [facility] 5-[id number] 00:00: 3D mouth 3 [facility] 00 (three) l times a day. LYRICA 200 2017- Yes 1{tbl} Q.[id number] Take 1 [facility] 5-[id number] 00:00: 3D mouth 3 [facility] 00 (three) l times a day. LYRICA 200 Yes 1{tbl} Q.[id number] Take 1 [facility]-[id number] 00:00: 3D mouth 3 [facility] 00 (three) l times a day. LYRICA 200 2017- Yes 1{tbl} Q.[id number] Take 1 [facility] 5-[id number] 00:00: 3D mouth 3 [facility] 00 (three) l times a day. LYRICA 200 Yes 1{tbl} Q.[id number] Take 1 [id number] 00:00: 3D mouth 3 [facility] 00 (three) l times a day. LYRICA 200 Yes 1{tbl} Q.[id number] Take 1 [facility]-[id number] 00:00: 3D mouth 3 [facility] 00 (three) l times a day. LYRICA 200 Yes 1{tbl} Q.[id number] Take 1 [facility] 5-[id number] 00:00: 3D mouth 3 [facility] 00 (three) l times a day. LYRICA 200 Yes 1{tbl} Q.[id number] Take 1 [facility] 5-[id number] 00:00: 3D mouth 3 [facility] 00 (three) l times a day. LYRICA 200 Yes 1{tbl} Q.[id number] Take 1 [facility] 5-[id number] 00:00: 3D mouth 3 [facility] 00 (three) l times a day. LYRICA 200 Yes 1{tbl} Q.[id number] Take 1 [facility] 5[id number] 00:00: 3D mouth 3 [facility] 00 (three) l times a day. LYRICA 200 2017- Yes 1{tbl} Q.[id number] Take 1 [facility] 5-[id number] 00:00: 3D mouth 3 [facility] 00 (three) l times a day. LYRICA 200 Yes 1{tbl} Q.[id number] Take 1 [facility] 5-[id number] 00:00: 3D mouth 3 [facility] 00 (three) l times a day. LYRICA 200 Yes 1{tbl} Q.[id number] Take 1 [facility] 5-[id number] 00:00: 3D mouth 3 [facility] 00 (three) l times a day. LYRICA 200 Yes 1{tbl} Q.[id number] Take 1 [facility] 5-[id number] 00:00: 3D mouth 3 [facility] 00 (three) l times a day. LYRICA 200 Yes 1{tbl} Q.[id number] Take 1 [facility] 5-[id number] 00:00: 3D mouth 3 [...] Physici Tablet Tablet ans Immunizations Ordered Filled Date Status Comments Source Immunization Name Immunization Name Pneumococcal 20 2022-04-22 Completed [facility] of Conjugate, PCV20 00:00:00 [facility] (Prevnar 20) Branch Zoster Vaccine 2022-04-22 Completed University of Recombinant 00:00:00 [facility] Pneumococcal 20 2022-04-22 Completed Universit y of Conjugate, PCV20 00:00:00 [facility] dical (Prevnar 20) Branch Zoster Vaccine 2022-04-22 Completed University of Recombinant 00:00:00 [facility] Pneumococcal 20 2022-04-22 Completed Universit y of Conjugate, PCV20 00:00:00 [facility] dical (Prevnar 20) Branch Zoster Vaccine 2022-04-22 Completed University of Recombinant 00:00:00 [facility] Pneumococcal 20 2022-04-22 Completed Universit y of Conjugate, PCV20 00:00:00 [facility] dical (Prevnar 20) Branch Zoster Vaccine 2022-04-22 Completed University of Recombinant 00:00:00 [facility] Pneumococcal 20 2022-04-22 Completed Universit y of Conjugate, PCV20 00:00:00 [facility] dical (Prevnar 20) Branch Zoster Vaccine 2022-04-22 Completed University of Recombinant 00:00:00 [facility] Pneumococcal 20 2022-04-22 Completed Universit y of Conjugate, PCV20 00:00:00 [facility] dical (Prevnar 20) Branch Zoster Vaccine 2022-04-22 Completed University of Recombinant 00:00:00 [facility] Pneumococcal 20 2022-04-22 Completed Universit y of Conjugate, PCV20 00:00:00 [facility] dical (Prevnar 20) Branch Zoster Vaccine 2022-04-22 Completed University of Recombinant 00:00:00 [facility] Pneumococcal 20 2022-04-22 Completed Universit y of Conjugate, PCV20 00:00:00 [facility] dical (Prevnar 20) Branch Zoster Vaccine 2022-04-22 Completed University of Recombinant 00:00:00 [facility] Pneumococcal 20 2022-04-22 Completed Universit y of Conjugate, PCV20 00:00:00 [facility] dical (Prevnar 20) Branch Zoster Vaccine 2022-04-22 Completed [facility] Recombinant 00:00:00 [facility] [facility] 2022-04-22 Completed [facility] Conjugate, PCV20 00:00:00 [facility] (Prevnar 20) Branch Zoster Vaccine 2022-04-22 Completed [facility] of Recombinant 00:00:00 [facility] Pneumococcal 20 2022-04-22 Completed [facility] of Conjugate, PCV20 00:00:00 [facility] (Prevnar 20) Branch Zoster Vaccine 2022-04-22 Completed [facility] Recombinant 00:00:00 [facility] Pneumococcal 20 2022-04-22 Completed [facility] Conjugate, PCV20 00:00:00 [facility] (Prevnar 20) Branch Zoster Vaccine 2022-04-22 Completed [facility] of Recombinant 00:00:00 [facility] Pneumococcal 20 2022-04-22 Completed [facility] of Conjugate, PCV20 00:00:00 [facility] (Prevnar 20) Branch Zoster Vaccine 2022-04-22 Completed [facility] Recombinant 00:00:00 [facility] Pneumococcal 20 2022-04-22 Completed [facility] of Conjugate, PCV20 00:00:00 [facility] (Prevnar 20) Branch Zoster Vaccine 2022-04-22 Completed [facility] of Recombinant 00:00:00 [facility] Pneumococcal 20 2022-04-22 Completed [facility] of Conjugate, PCV20 00:00:00 [facility] (Prevnar 20) Branch Zoster Vaccine 2022-04-22 Completed [facility] of Recombinant 00:00:00 [facility] Pneumococcal 20 2022-04-22 Completed [facility] of Conjugate, PCV20 00:00:00 [facility] (Prevnar 20) Branch Zoster Vaccine 2022-04-22 Completed [facility] Recombinant 00:00:00 [facility] Pneumococcal 20 2022-04-22 Completed [facility] of Conjugate, PCV20 00:00:00 [facility] (Prevnar 20) Branch Zoster Vaccine 2022-04-22 Completed [facility] Recombinant 00:00:00 [facility] Pneumococcal 20 2022-04-22 Completed [facility] of Conjugate, PCV20 00:00:00 [facility] (Prevnar 20) Branch Zoster Vaccine 2022-04-22 Completed [facility] Recombinant 00:00:00 [facility] Pneumococcal 20 2022-04-22 Completed [facility] of Conjugate, PCV20 00:00:00 [facility] (Prevnar 20) Branch Zoster Vaccine 2022-04-22 Completed [facility] Recombinant 00:00:00 [facility] Pneumococcal 20 2022-04-22 Completed [facility] Conjugate, PCV20 00:00:00 [facility] (Prevnar 20) Branch Zoster Vaccine 2022-04-22 Completed [facility] Recombinant 00:00:00 [facility] Pneumococcal 20 2022-04-22 Completed [facility] Conjugate, PCV20 00:00:00 [facility] (Prevnar 20) Branch Zoster Vaccine 2022-04-22 Completed [facility] Recombinant 00:00:00 [facility] Pneumococcal 20 2022-04-22 Completed [facility] Conjugate, PCV20 00:00:00 [facility] (Prevnar 20) Branch Zoster Vaccine 2022-04-22 Completed [facility] Recombinant 00:00:00 [facility] Pneumococcal 20 2022-04-22 Completed [facility] of Conjugate, PCV20 00:00:00 [facility] (Prevnar 20) Branch Zoster Vaccine 2022-04-22 Completed [facility] Recombinant 00:00:00 [facility] Pneumococcal 20 2022-04-22 Completed [facility] Conjugate, PCV20 00:00:00 [facility] (Prevnar 20) Branch Zoster Vaccine 2022-04-22 Completed [facility] Recombinant 00:00:00 [facility] Pneumococcal 20 2022-04-22 Completed [facility] Conjugate, PCV20 00:00:00 [facility] (Prevnar 20) Branch Zoster Vaccine 2022-04-22 Completed [facility] Recombinant 00:00:00 [facility] Pneumococcal 20 2022-04-22 Completed [facility] Conjugate, PCV20 00:00:00 [place] [facility] (Prevnar 20) Branch Zoster Vaccine 2022-04-22 Completed [facility] Recombinant 00:00:00 [facility] Pneumococcal 20 2022-04-22 Completed [facility] Conjugate, PCV20 00:00:00 [facility] (Prevnar 20) Branch Zoster Vaccine 2022-04-22 Completed [facility] Recombinant 00:00:00 [facility] Pneumococcal 20 2022-04-22 Completed [facility] Conjugate, PCV20 00:00:00 [facility] (Prevnar 20) Branch Zoster Vaccine 2022-04-22 Completed [facility] Recombinant 00:00:00 [facility] Pneumococcal 20 2022-04-22 Completed [facility] Conjugate, PCV20 00:00:00 [facility] (Prevnar 20) Branch Zoster Vaccine 2022-04-22 Completed [facility] Recombinant 00:00:00 [facility] Pneumococcal 20 2022-04-22 Completed [facility] of Conjugate, PCV20 00:00:00 [facility] (Prevnar 20) Branch Zoster Vaccine 2022-04-22 Completed [facility] Recombinant 00:00:00 [facility] Pneumococcal 20 2022-04-22 Completed [facility] of Conjugate, PCV20 00:00:00 [facility] (Prevnar 20) Branch Zoster Vaccine 2022-04-22 Completed [facility] Recombinant 00:00:00 [facility] Pneumococcal 20 2022-04-22 Completed [facility] Conjugate, PCV20 00:00:00 [place] [facility] (Prevnar 20) Branch Zoster Vaccine 2022-04-22 Completed [facility] Recombinant 00:00:00 [facility] Pneumococcal 20 2022-04-22 Completed [facility] Conjugate, PCV20 00:00:00 [place] [facility] (Prevnar 20) Branch Zoster Vaccine 2022-04-22 Completed [facility] Recombinant 00:00:00 [facility] Pneumococcal 20 2022-04-22 Completed [facility] Conjugate, PCV20 00:00:00 [place] [facility] (Prevnar 20) Branch Zoster Vaccine 2022-04-22 Completed [facility] Recombinant 00:00:00 [facility] Pneumococcal 20 2022-04-22 Completed [facility] of Conjugate, PCV20 00:00:00 [facility] (Prevnar 20) Branch Zoster Vaccine 2022-04-22 Completed [facility] Recombinant 00:00:00 [facility] Pneumococcal 20 2022-04-22 Completed [facility] of Conjugate, PCV20 00:00:00 [facility] (Prevnar 20) Branch Zoster Vaccine 2022-04-22 Completed [facility] Recombinant 00:00:00 [facility] Pneumococcal 20 2022-04-22 Completed [facility] of Conjugate, PCV20 00:00:00 [facility] (Prevnar 20) Branch Zoster Vaccine 2022-04-22 Completed [facility] Recombinant 00:00:00 [facility] Pneumococcal 20 2022-04-22 Completed [facility] of Conjugate, PCV20 00:00:00 [facility] (Prevnar 20) Branch Zoster Vaccine 2022-04-22 Completed [facility] Recombinant 00:00:00 [facility] Pneumococcal 20 2022-04-22 Completed [facility] of Conjugate, PCV20 00:00:00 [facility] (Prevnar 20) Branch Zoster Vaccine 2022-04-22 Completed [facility] Recombinant 00:00:00 [facility] Pneumococcal 20 2022-04-22 Completed [facility] of Conjugate, PCV20 00:00:00 [facility] (Prevnar 20) Branch Zoster Vaccine 2022-04-22 Completed [facility] Recombinant 00:00:00 [facility] Pneumococcal 20 2022-04-22 Completed [facility] of Conjugate, PCV20 00:00:00 [facility] (Prevnar 20) Branch Zoster Vaccine 2022-04-22 Completed [facility] Recombinant 00:00:00 [facility] Pneumococcal 20 2022-04-22 Completed [facility] of Conjugate, PCV20 00:00:00 [facility] (Prevnar 20) Branch Zoster Vaccine 2022-04-22 Completed [facility] Recombinant 00:00:00 [facility] Pneumococcal 20 2022-04-22 Completed [facility] of Conjugate, PCV20 00:00:00 [facility] (Prevnar 20) Branch Zoster Vaccine 2022-04-22 Completed [facility] Recombinant 00:00:00 [facility] Pneumococcal 20 2022-04-22 Completed [facility] of Conjugate, PCV20 00:00:00 [facility] (Prevnar 20) Branch Zoster Vaccine 2022-04-22 Completed [facility] Recombinant 00:00:00 [facility] Pneumococcal 20 2022-04-22 Completed [facility] of Conjugate, PCV20 00:00:00 [facility] (Prevnar 20) Branch Zoster Vaccine 2022-04-22 Completed [facility] Recombinant 00:00:00 [facility] Pneumococcal 20 2022-04-22 Completed [facility] of Conjugate, PCV20 00:00:00 [facility] (Prevnar 20) Branch Zoster Vaccine 2022-04-22 Completed [facility] Recombinant 00:00:00 [facility] Pneumococcal 20 2022-04-22 Completed [facility] of Conjugate, PCV20 00:00:00 [facility] (Prevnar 20) Branch Zoster Vaccine 2022-04-22 Completed [facility] Recombinant 00:00:00 [facility] Pneumococcal 20 2022-04-22 Completed [facility] y of Conjugate, PCV20 00:00:00 [facility] (Prevnar 20) Branch Zoster Vaccine 2022-04-22 Completed [facility] Recombinant 00:00:00 [facility] Pneumococcal 20 2022-04-22 Completed [facility] of Conjugate, PCV20 00:00:00 [facility] (Prevnar 20) Branch Zoster Vaccine 2022-04-22 Completed [facility] Recombinant 00:00:00 [facility] Pneumococcal 20 2022-04-22 Completed [facility] of Conjugate, PCV20 00:00:00 [facility] (Prevnar 20) Branch Zoster Vaccine 2022-04-22 Completed [facility] Recombinant 00:00:00 [facility] Pneumococcal 20 2022-04-22 Completed [facility] y of Conjugate, PCV20 00:00:00 [facility] (Prevnar 20) Branch Zoster Vaccine 2022-04-22 Completed [facility] Recombinant 00:00:00 [facility] Pneumococcal 20 2022-04-22 Completed [facility] of Conjugate, PCV20 00:00:00 [facility] (Prevnar 20) Branch Zoster Vaccine 2022-04-22 Completed [facility] Recombinant 00:00:00 [facility] Pneumococcal 20 2022-04-22 Completed [facility] of Conjugate, PCV20 00:00:00 [facility] (Prevnar 20) Branch Zoster Vaccine 2022-04-22 Completed [facility] Recombinant 00:00:00 [facility] Pneumococcal 20 2022-04-22 Completed [facility] of Conjugate, PCV20 00:00:00 [facility] (Prevnar 20) Branch Zoster Vaccine 2022-04-22 Completed [facility] Recombinant 00:00:00 [facility] Pneumococcal 20 2022-04-22 Completed [facility] of Conjugate, PCV20 00:00:00 [facility] (Prevnar 20) Branch Zoster Vaccine 2022-04-22 Completed [facility] Recombinant 00:00:00 [facility] Pneumococcal 20 2022-04-22 Completed [facility] y of Conjugate, PCV20 00:00:00 [facility] (Prevnar 20) Branch Zoster Vaccine 2022-04-22 Completed [facility] Recombinant 00:00:00 [facility] Pneumococcal 20 2022-04-22 Completed [facility] of Conjugate, PCV20 00:00:00 [facility] (Prevnar 20) Branch Zoster Vaccine 2022-04-22 Completed [facility] Recombinant 00:00:00 [facility] Pneumococcal 20 2022-04-22 Completed [facility] of Conjugate, PCV20 00:00:00 [facility] (Prevnar 20) Branch Zoster Vaccine 2022-04-22 Completed [facility] Recombinant 00:00:00 [facility] Pneumococcal 20 2022-04-22 Completed [facility] of Conjugate, PCV20 00:00:00 [facility] (Prevnar 20) Branch Zoster Vaccine 2022-04-22 Completed [facility] Recombinant 00:00:00 [facility] Pneumococcal 20 2022-04-22 Completed [facility] of Conjugate, PCV20 00:00:00 [facility] (Prevnar 20) Branch Zoster Vaccine 2022-04-22 Completed [facility] Recombinant 00:00:00 [facility] Pneumococcal 20 2022-04-22 Completed [facility] y of Conjugate, PCV20 00:00:00 [facility] (Prevnar 20) Branch Zoster Vaccine 2022-04-22 Completed [facility] Recombinant 00:00:00 [facility] Pneumococcal 20 2022-04-22 Completed [facility] of Conjugate, PCV20 00:00:00 [facility] (Prevnar 20) Branch Zoster Vaccine 2022-04-22 Completed [facility] Recombinant 00:00:00 [facility] Pneumococcal 20 2022-04-22 Completed [facility] y of Conjugate, PCV20 00:00:00 [facility] (Prevnar 20) Branch Zoster Vaccine 2022-04-22 Completed [facility] Recombinant 00:00:00 [facility] Pneumococcal 20 2022-04-22 Completed [facility] of Conjugate, PCV20 00:00:00 [facility] (Prevnar 20) Branch Zoster Vaccine 2022-04-22 Completed [facility] Recombinant 00:00:00 [facility] Pneumococcal 20 2022-04-22 Completed [facility] y of Conjugate, PCV20 00:00:00 [facility] (Prevnar 20) Branch Zoster Vaccine 2022-04-22 Completed [facility] Recombinant 00:00:00 [facility] Pneumococcal 20 2022-04-22 Completed [facility] y of Conjugate, PCV20 00:00:00 [facility] (Prevnar 20) Branch Zoster Vaccine 2022-04-22 Completed [facility] Recombinant 00:00:00 [facility] Pneumococcal 20 2022-04-22 Completed [facility] of Conjugate, PCV20 00:00:00 [facility] (Prevnar 20) Branch Zoster Vaccine 2022-04-22 Completed [facility] Recombinant 00:00:00 [facility] Pneumococcal 20 2022-04-22 Completed [facility] of Conjugate, PCV20 00:00:00 [facility] (Prevnar 20) Branch Zoster Vaccine 2022-04-22 Completed [facility] Recombinant 00:00:00 [facility] Pneumococcal 20 2022-04-22 Completed [facility] y of Conjugate, PCV20 00:00:00 [facility] (Prevnar 20) Branch Zoster Vaccine 2022-04-22 Completed [facility] Recombinant 00:00:00 [facility] Pneumococcal 20 2022-04-22 Completed [facility] y of Conjugate, PCV20 00:00:00 [facility] (Prevnar 20) Branch Zoster Vaccine 2022-04-22 Completed [facility] Recombinant 00:00:00 [facility] Pneumococcal 20 2022-04-22 Completed [facility] y of Conjugate, PCV20 00:00:00 [facility] (Prevnar 20) Branch Zoster Vaccine 2022-04-22 Completed [facility] Recombinant 00:00:00 [facility] Pneumococcal 20 2022-04-22 Completed [facility] of Conjugate, PCV20 00:00:00 [facility] (Prevnar 20) Branch Zoster Vaccine 2022-04-22 Completed [facility] Recombinant 00:00:00 [facility] Pneumococcal 20 2022-04-22 Completed [facility] of Conjugate, PCV20 00:00:00 [facility] (Prevnar 20) Branch Zoster Vaccine 2022-04-22 Completed [facility] Recombinant 00:00:00 [facility] Pneumococcal 20 2022-04-22 Completed [facility] y of Conjugate, PCV20 00:00:00 [facility] (Prevnar 20) Branch Zoster Vaccine 2022-04-22 Completed [facility] Recombinant 00:00:00 [facility] Pneumococcal 20 2022-04-22 Completed [facility] y of Conjugate, PCV20 00:00:00 [facility] (Prevnar 20) Branch Zoster Vaccine 2022-04-22 Completed [facility] Recombinant 00:00:00 [facility] Pneumococcal 20 2022-04-22 Completed [facility] y of Conjugate, PCV20 00:00:00 [facility] (Prevnar 20) Branch Zoster Vaccine 2022-04-22 Completed [facility] Recombinant 00:00:00 [facility] Pneumococcal 20 2022-04-22 Completed [facility] of Conjugate, PCV20 00:00:00 [facility] (Prevnar 20) Branch Zoster Vaccine 2022-04-22 Completed [facility] Recombinant 00:00:00 [facility] Influenza Virus 2022-02-02 Completed [facility] y of Vaccine Quad IM, 00:00:00 [facility] Preserv and ABX Branch Free 6 MO-64 YRS Influenza Virus 2022-02-02 Completed [facility] y of Vaccine Quad IM, 00:00:00 [facility] Preserv and ABX Branch Free 6 MO-64 YRS Influenza Virus 2022-02-02 Completed [facility] y of Vaccine Quad IM, 00:00:00 [facility] Preserv and ABX Branch Free 6 MO-64 YRS Influenza Virus 2022-02-02 Completed [facility] y of Vaccine Quad IM, 00:00:00 [facility] Preserv and ABX Branch Free 6 MO-64 YRS Influenza Virus 2022-02-02 Completed [facility] y of Vaccine Quad IM, 00:00:00 [facility] Preserv and ABX Branch Free 6 MO-64 YRS Influenza Virus 2022-02-02 Completed [facility] y of Vaccine Quad IM, 00:00:00 [facility] Preserv and ABX Branch Free 6 [...] [facility] y of Vaccine Quad IM, 00:00:00 [place] [facility] Preserv and ABX Branch Free 6 MO-64 YRS (FLUCELVAX) Influenza Virus 2022-02-02 Completed [facility] y of Vaccine Quad IM, 00:00:00 [place] [facility] Preserv and ABX Branch Free 6 MO-64 YRS (FLUCELVAX) Influenza Virus 2022-02-02 Completed [facility] y of Vaccine Quad IM, 00:00:00 [place] [facility] Preserv and ABX Branch Free 6 MO-64 YRS (FLUCELVAX) Influenza Virus 2022-02-02 Completed [facility] y of Vaccine Quad IM, 00:00:00 [place] [facility] Preserv and ABX Branch Free 6 MO-64 YRS (FLUCELVAX) Influenza Virus 2022-02-02 Completed [facility] y of Vaccine Quad IM, 00:00:00 [place] [facility] Preserv and ABX Branch Free 6 MO-64 YRS (FLUCELVAX) Influenza Virus 2021-04-12 Completed [facility] of Vaccine 00:00:00 [facility] Influenza Virus 2021-04-12 Completed [facility] y of Vaccine 00:00:00 [facility] Influenza Virus 2021-04-12 Completed [facility] y of Vaccine 00:00:00 [facility] Influenza Virus 2021-04-12 Completed [facility] y of Vaccine 00:00:00 [facility] Influenza Virus 2021-04-12 Completed [facility] y of Vaccine 00:00:00 [facility] Influenza Virus 2021-04-12 Completed [facility] y of Vaccine 00:00:00 [facility] Influenza Virus 2021-04-12 Completed [facility] y of Vaccine 00:00:00 [facility] Influenza Virus 2021-04-12 Completed [facility] y of Vaccine 00:00:00 [facility] Influenza Virus 2021-04-12 Completed [facility] y of Vaccine 00:00:00 [facility] Influenza Virus 2021-04-12 Completed [facility] y of Vaccine 00:00:00 [facility] Influenza Virus 2021-04-12 Completed [facility] y of Vaccine 00:00:00 [facility] Influenza Virus 2021-04-12 Completed [facility] y of Vaccine 00:00:00 [facility] Influenza Virus 2021-04-12 Completed [facility] of Vaccine 00:00:00 [facility] Influenza Virus 2021-04-12 Completed [facility] y of Vaccine 00:00:00 [facility] Influenza Virus 2021-04-12 Completed [facility] y of Vaccine 00:00:00 [facility] Influenza Virus 2021-04-12 Completed [facility] y of Vaccine 00:00:00 [facility] Influenza Virus 2021-04-12 Completed [facility] y of Vaccine 00:00:00 [facility] Influenza Virus 2021-04-12 Completed [facility] y of Vaccine 00:00:00 [facility] Influenza Virus 2021-04-12 Completed [facility] y of Vaccine 00:00:00 [facility] Influenza Virus 2021-04-12 Completed [facility] y of Vaccine 00:00:00 [facility] Influenza Virus 2021-04-12 Completed [facility] y of Vaccine 00:00:00 [facility] Influenza Virus 2021-04-12 Completed [facility] of Vaccine 00:00:00 [facility] Influenza Virus 2021-04-12 Completed [facility] y of Vaccine 00:00:00 [facility] Influenza Virus 2021-04-12 Completed [facility] y of Vaccine 00:00:00 [facility] Influenza Virus 2021-04-12 Completed [facility] of Vaccine 00:00:00 [facility] Influenza Virus 2021-04-12 Completed [facility] y of Vaccine 00:00:00 [facility] Influenza Virus 2021-04-12 Completed [facility] of Vaccine 00:00:00 [facility] Influenza Virus 2021-04-12 Completed [facility] of Vaccine 00:00:00 [facility] Influenza Virus 2021-04-12 Completed [facility] y of Vaccine 00:00:00 [facility] Influenza Virus 2021-04-12 Completed [facility] y of Vaccine 00:00:00 [facility] Influenza Virus 2021-04-12 Completed [facility] y of Vaccine 00:00:00 [facility] Influenza Virus 2021-04-12 Completed [facility] y of Vaccine 00:00:00 [facility] Influenza Virus 2021-04-12 Completed [facility] of Vaccine 00:00:00 [facility] Influenza Virus 2021-04-12 Completed [facility] y of Vaccine 00:00:00 [facility] Influenza Virus 2021-04-12 Completed [facility] y of Vaccine 00:00:00 [facility] Influenza Virus 2021-04-12 Completed [facility] of Vaccine 00:00:00 [facility] Influenza Virus 2021-04-12 Completed [facility] of Vaccine 00:00:00 [facility] Influenza Virus 2021-04-12 Completed [facility] y of Vaccine 00:00:00 [facility] Influenza Virus 2021-04-12 Completed [facility] of Vaccine 00:00:00 [facility] Influenza Virus 2021-04-12 Completed [facility] of Vaccine 00:00:00 [facility] Influenza Virus 2021-04-12 Completed [facility] of Vaccine 00:00:00 [facility] Influenza Virus 2021-04-12 Completed [facility] of Vaccine 00:00:00 [facility] Influenza Virus 2021-04-12 Completed [facility] y of Vaccine 00:00:00 [facility] Influenza Virus 2021-04-12 Completed [facility] of Vaccine 00:00:00 [facility] Influenza Virus 2021-04-12 Completed [facility] of Vaccine 00:00:00 [facility] Influenza Virus 2021-04-12 Completed [facility] of Vaccine 00:00:00 [facility] Influenza Virus 2021-04-12 Completed [facility] of Vaccine 00:00:00 [facility] Influenza Virus 2021-04-12 Completed [facility] Vaccine 00:00:00 [facility] Influenza Virus 2021-04-12 Completed [facility] Vaccine 00:00:00 [facility] Influenza Virus 2021-04-12 Completed [facility] Vaccine 00:[facility]:00 [facility] [facility] Influ[facility] Virus 2021-04-12 Completed Universit y of Vaccine 00:00:00 [facility] Influenza Virus 2021-04-12 Completed Universit y of Vaccine 00:00:00 [facility] Influenza Virus 2021-04-12 Completed Universit y of Vaccine 00:00:00 [facility] Influenza Virus 2021-04-12 Completed Universit y of Vaccine 00:00:00 [facility] Influenza Virus 2021-04-12 Completed Universit y of Vaccine 00:00:00 [facility] Influenza Virus 2021-04-12 Completed [facility] Vaccine 00:00:00 [place] [facility] Influenza Virus 2021-04-12 Completed Universit y of Vaccine 00:00:00 [facility] Influenza Virus 2021-04-12 Completed Universit y of Vaccine 00:00:00 [facility] Influenza Virus 2021-04-12 Completed Universit y of Vaccine 00:00:00 [facility] Influenza Virus 2021-04-12 Completed Universit y of Vaccine 00:00:00 [facility] Influenza Virus 2021-04-12 Completed Universit y of Vaccine 00:00:00 [facility] Influenza Virus 2021-04-12 Completed Universit y of Vaccine 00:00:00 [facility] Influenza Virus 2021-04-12 Completed Universit y of Vaccine 00:00:00 [facility] Influenza Virus 2021-04-12 Completed Universit y of Vaccine 00:00:00 [facility] Influenza Virus 2021-04-12 Completed Universit y of Vaccine 00:00:00 [facility] Influenza Virus 2021-04-12 Completed Universit y of Vaccine 00:00:00 [facility] Influenza Virus 2021-04-12 Completed Universit y of Vaccine 00:00:00 [facility] Influenza Virus 2021-04-12 Completed Universit y of Vaccine 00:00:00 [facility] Influenza Virus 2021-04-12 Completed Universit y of Vaccine 00:00:00 [facility] Influenza Virus 2021-04-12 Completed Universit y of Vaccine 00:00:00 [facility] Influenza Virus 2021-04-12 Completed Universit y of Vaccine 00:00:00 [facility] Influenza Virus 2021-04-12 Completed Universit y of Vaccine 00:00:00 [facility] Influenza Virus 2021-04-12 Completed Universit y of Vaccine 00:00:00 [facility] Influenza Virus 2021-04-12 Completed Universit y of Vaccine 00:00:00 [facility] Influenza Virus 2021-04-12 Completed Universit y of Vaccine 00:00:00 [facility] Influenza Virus 2021-04-12 Completed Universit y of Vaccine 00:00:00 [facility] Influenza Virus 2021-04-12 Completed Universit y of Vaccine 00:00:00 [facility] Influenza Virus 2021-04-12 Completed [facility]it y of Vaccine 00:00:00 [facility] Influenza Virus 2021-04-12 Completed [facility]it y of Vaccine 00:00:00 [facility] Influenza Virus 2021-04-12 Completed [facility]it y of Vaccine 00:00:00 [facility] Influenza Virus 2021-04-12 Completed [facility]it y of Vaccine 00:00:00 [facility] Influenza Virus 2021-04-12 Completed [facility]it y of Vaccine 00:00:00 [facility] Influenza Virus 2021-04-12 Completed Universit y of Vaccine 00:00:00 [facility] Influenza Virus 2021-04-12 Completed [facility]it y of Vaccine 00:00:00 [facility] Influenza Virus 2021-04-12 Completed [facility]it y of Vaccine 00:00:00 [facility] Influenza Virus 2021-04-12 Completed Universit y of Vaccine 00:00:00 [facility] Influenza Virus 2021-04-12 Completed [facility]it y of Vaccine 00:00:00 [facility] Influenza Virus 2021-04-12 Completed Universit y of Vaccine 00:00:00 [facility] Influenza Virus 2021-04-12 Completed [facility]it y of Vaccine 00:00:00 [facility] Influenza Virus 2021-04-12 Completed [facility]it y of Vaccine 00:00:00 [facility] Influenza Virus 2021-04-12 Completed [facility]it y of Vaccine 00:00:00 [facility] Influenza Virus 2021-04-12 Completed Universit y of Vaccine 00:00:00 [facility] Influenza Virus 2021-04-12 Completed [facility]it y of Vaccine 00:00:00 [facility] Influenza Virus 2021-04-12 Completed Universit y of Vaccine 00:00:00 [facility] Influenza Virus 2021-04-12 Completed Universit y of Vaccine 00:00:00 [facility] Influenza Virus 2021-04-12 Completed [facility]it y of Vaccine 00:00:00 [facility] Influenza Virus 2021-04-12 Completed Universit y of Vaccine 00:00:00 [facility] Influenza Virus 2021-04-12 Completed Universit y of Vaccine 00:00:00 [facility] Influenza Virus 2021-04-12 Completed [facility]it y of Vaccine 00:00:00 [facility] Influenza Virus 2021-04-12 Completed [facility]it y of Vaccine 00:00:00 [facility] Influenza Virus 2021-04-12 Completed [facility]it y of Vaccine 00:00:00 [facility] Influenza Virus 2021-04-12 Completed [facility]it y of Vaccine 00:00:00 [facility] Influenza Virus 2021-04-12 Completed [facility]it y of Vaccine 00:00:00 [facility] Influenza Virus 2021-04-12 Completed [facility]it y of Vaccine 00:00:00 [facility] Influenza Virus 2021-04-12 Completed Universit y of Vaccine 00:00:00 [facility] Influenza Virus 2019-04-22 Completed Universit y of Vaccine Quad .5 mL 00:00:00 [facility] 6[facility] Influenza Virus 2019-04-22 Completed [facility]it y of Vaccine [facility] .5 mL 00:00:00 [facility] 6[facility] Influenza Virus 2019-04-22 Completed [facility]it y of Vaccine [facility] .5 mL 00:00:00 [facility] 6[facility] Influenza Virus 2019-04-22 Completed [facility]it y of Vaccine [facility] .5 mL 00:00:00 [facility] 6+ [facility] Influenza Virus [...] y of Vaccine Quad .5 mL 00:00:00 [facility] 6+ [facility] Influenza Virus [...] 00:00:00 [place] [facility] 6+ [facility] (FLUZONE/FLULAVAL/F LUARIX) Influenza Virus 2019-04-22 Completed Universit y of Vaccine [facility] .5 mL 00:00:00 [place] [facility] 6+ [facility] (FLUZONE/FLULAVAL/F LUARIX) Influenza Virus 2019-04-22 Completed [facility]it y of Vaccine [facility] .5 mL 00:00:00 [place] [facility] 6+ [facility] (FLUZONE/FLULAVAL/F LUARIX) Influenza Virus 2019-04-22 Completed [facility]it y of Vaccine [facility] .5 mL 00:00:00 [place] [facility] 6+ [facility] (FLUZONE/FLULAVAL/F LUARIX) Influenza Virus 2019-04-22 Completed [facility]it y of Vaccine Quad .5 mL 00:00:00 [place] [facility] 6+ MO [facility] (FLUZONE/FLULAVAL/F LUARIX) TDAP 2013-06-09 Completed University of 00:00:00 [facility] TDAP 2013-06-09 Completed University of 00:00:00 [facility] TDAP 2013-06-09 Completed University of 00:00:00 [facility] TDAP 2013-06-09 Completed University of 00:00:00 [facility] TDAP 2013-06-09 Completed University of 00:00:00 [facility] TDAP 2013-06-09 Completed University of 00:00:00 [facility] TDAP 2013-06-09 Completed University of 00:00:00 [facility] TDAP 2013-06-09 Completed University of 00:00:00 [facility] TDAP 2013-06-09 Completed University of 00:00:00 [facility] TDAP 2013-06-09 Completed University of 00:00:00 [facility] TDAP 2013-06-09 Completed [facility] 00:00:00 [facility] TDAP 2013-06-09 Completed [facility] of 00:00:00 [facility] TDAP 2013-06-09 Completed [facility] 00:00:00 [facility] TDAP 2013-06-09 Completed University [facility] 00:00:00 [facility] TDAP 2013-06-09 Completed [facility] 00:00:00 [facility] TDAP 2013-06-09 Completed University [facility] 00:00:00 [facility] TDAP 2013-06-09 Completed University of 00:00:00 [facility] TDAP 2013-06-09 Completed University [facility] 00:00:00 [facility] TDAP 2013-06-09 Completed University of 00:00:00 [facility] TDAP 2013-06-09 Completed [facility] of 00:00:00 [facility] TDAP 2013-06-09 Completed University of 00:00:00 [facility] TDAP 2013-06-09 Completed University of 00:00:00 [facility] TDAP 2013-06-09 Completed University of 00:00:00 [facility] TDAP 2013-06-09 Completed University of 00:00:00 [facility] TDAP 2013-06-09 Completed University of 00:00:00 [facility] TDAP 2013-06-09 Completed University of 00:00:00 [facility] TDAP 2013-06-09 Completed [facility] 00:00:00 [facility] TDAP 2013-06-09 Completed University of 00:00:00 [facility] TDAP 2013-06-09 Completed University of 00:00:00 [facility] TDAP 2013-06-09 Completed University of 00:00:00 [facility] TDAP 2013-06-09 Completed [facility] 00:00:00 [facility] TDAP 2013-06-09 Completed [facility] 00:00:00 [facility] TDAP 2013-06-09 Completed [facility] 00:00:00 [facility] TDAP 2013-06-09 Completed [facility] 00:00:00 [facility] TDAP 2013-06-09 Completed [facility] of 00:00:00 [facility] TDAP 2013-06-09 Completed University of 00:00:00 [facility] TDAP 2013-06-09 Completed University of 00:00:00 [facility] TDAP 2013-06-09 Completed University of 00:00:00 [facility] TDAP 2013-06-09 Completed [facility] 00:00:00 [facility] TDAP 2013-06-09 Completed [facility] of 00:00:00 [facility] TDAP 2013-06-09 Completed University of 00:00:00 [facility] TDAP 2013-06-09 Completed [facility] 00:00:00 [facility] TDAP 2013-06-09 Completed [facility] of 00:00:00 [facility] TDAP 2013-06-09 Completed [facility] 00:00:00 [facility] TDAP 2013-06-09 Completed University of 00:00:00 [facility] TDAP 2013-06-09 Completed University of 00:00:00 [facility] TDAP 2013-06-09 Completed [facility] of 00:00:00 [facility] TDAP 2013-06-09 Completed University of 00:00:00 [facility] TDAP 2013-06-09 Completed University of 00:00:00 [facility] TDAP 2013-06-09 Completed University of 00:00:00 [facility] TDAP 2013-06-09 Completed University [facility] 00:00:00 [facility] TDAP 2013-06-09 Completed University of 00:00:00 [facility] TDAP 2013-06-09 Completed [facility] of 00:00:00 [facility] TDAP 2013-06-09 Completed [facility] of 00:00:00 [facility] TDAP 2013-06-09 Completed University of 00:00:00 [facility] TDAP 2013-06-09 Completed University of 00:00:00 [facility] TDAP 2013-06-09 Completed University of 00:00:00 [facility] TDAP 2013-06-09 Completed [facility] of 00:00:00 [facility] TDAP 2013-06-09 Completed [facility] of 00:00:00 [facility] TDAP 2013-06-09 Completed [facility] of 00:00:00 [facility] TDAP 2013-06-09 Completed [facility] of 00:00:00 [facility] TDAP 2013-06-09 Completed [facility] 00:00:00 [facility] TDAP 2013-06-09 Completed [facility] 00:00:00 [facility] TDAP 2013-06-09 Completed [facility] 00:00:00 [facility] TDAP 2013-06-09 Completed [facility] 00:00:00 [facility] TDAP 2013-06-09 Completed [facility] 00:00:00 [place] [facility] TDAP 2013-06-09 Completed University of 00:00:00 [facility] TDAP 2013-06-09 Completed University of 00:00:00 [facility] TDAP 2013-06-09 Completed University of 00:00:00 [facility] TDAP 2013-06-09 Completed University of 00:00:00 [facility] TDAP 2013-06-09 Completed University of 00:00:00 [facility] TDAP 2013-06-09 Completed University of 00:00:00 [facility] TDAP 2013-06-09 Completed University of 00:00:00 [facility] TDAP 2013-06-09 Completed University of 00:00:00 [facility] TDAP 2013-06-09 Completed University of 00:00:00 [facility] TDAP 2013-06-09 Completed University of 00:00:00 [facility] TDAP 2013-06-09 Completed University of 00:00:00 [facility] TDAP 2013-06-09 Completed University of 00:00:00 [facility] TDAP 2013-06-09 Completed University of 00:00:00 [facility] TDAP 2013-06-09 Completed University of 00:00:00 [facility] TDAP 2013-06-09 Completed University of 00:00:00 [facility] TDAP 2013-06-09 Completed University of 00:00:00 [facility] TDAP 2013-06-09 Completed University of 00:00:00 [facility] TDAP 2013-06-09 Completed University of 00:00:00 [facility] TDAP 2013-06-09 Completed University of 00:00:00 [facility] TDAP 2013-06-09 Completed University of 00:00:00 [facility] TDAP 2013-06-09 Completed University of 00:00:00 [facility] TDAP 2013-06-09 Completed University of 00:00:00 [facility] TDAP 2013-06-09 Completed University of 00:00:00 [facility] TDAP 2013-06-09 Completed University of 00:00:00 [facility] TDAP 2013-06-09 Completed University of 00:00:00 [facility] TDAP 2013-06-09 Completed University of 00:00:00 [facility] TDAP 2013-06-09 Completed University of 00:00:00 [facility] TDAP 2013-06-09 Completed University of 00:00:00 [facility] TDAP 2013-06-09 Completed University of 00:00:00 [facility] TDAP 2013-06-09 Completed University of 00:00:00 [facility] TDAP 2013-06-09 Completed [facility] of 00:00:00 [facility] TDAP 2013-06-09 Completed University of 00:00:00 [facility] TDAP 2013-06-09 Completed University of 00:00:00 [facility] TDAP 2013-06-09 Completed University of 00:00:00 [facility] TDAP 2013-06-09 Completed [facility] of 00:00:00 [facility] TDAP 2013-06-09 Completed University of 00:00:00 [facility] TDAP 2013-06-09 Completed [facility] of 00:00:00 [facility] TDAP 2013-06-09 Completed University of 00:00:00 [facility] TDAP 2013-06-09 Completed [facility] of 00:00:00 [facility] Influenza Virus Unknown Completed Universit y of Vaccine Quad .5 mL [facility] 6+ MO Branch (FLUZONE/FLULAVAL/F LUARIX) Influenza Virus Unknown Completed Universit y of Vaccine [facility] TDAP Unknown Completed [facility] Influenza Virus Unknown Completed Universit y of Vaccine Quad , [facility] dical Preserv and ABX Branch Free 6 MO-64 YRS (FLUCELVAX) Pneumococcal 20 Unknown Completed Universit y of Conjugate, PCV20 [facility] dical (Prevnar 20) Branch Zoster Vaccine Unknown Completed [facility] Influenza Virus Unknown Completed Universit y of Vaccine Quad .5 mL [facility] 6+ MO Branch (FLUZONE/FLULAVAL/F LUARIX) Influenza Virus Unknown Completed Universit y of Vaccine [facility] TDAP Unknown Completed [facility] Influenza Virus Unknown Completed Universit y of Vaccine Quad IM, [facility] dical Preserv and ABX Branch Free 6 MO-64 YRS (FLUCELVAX) Pneumococcal 20 Unknown Completed Universit y of Conjugate, PCV20 [facility] dical (Prevnar 20) Branch Zoster Vaccine Unknown Completed [facility] Vital Signs Vital Name Observation Time Observation Value Comments Source Body height 2023-01-30 17:45:00 167.6 cm [facility] Body weight 2023-01-30 17:45:00 108.41 kg [facility] BMI 2023-01-30 17:45:00 38.58 kg/m2 [facility] Systolic blood 2023-01-22 04:30:00 127 mm[Hg] Univer sity of pressure [facility] Diastolic blood 2023-01-22 04:30:00 84 mm[Hg] Unive rsity of pressure [facility] Heart rate 2023-01-22 04:30:00 60 /min [facility] Body temperature 2023-01-22 04:30:00 36.33 Araseli Univ ersity of [facility] Oxygen saturation in 2023-01-22 04:30:00 96 /min University of Arterial blood by [place] [facility] oxim[facility] Respiratory rate 2023-01-22 00:14:00 16 /min Univ ers[facility] Body height 2023-01-22 00:14:00 167.6 cm [facility] Body weight 2023-01-22 00:14:00 108.41 kg [facility] BMI 2023-01-22 00:14:00 38.58 kg/m2 [facility] Systolic blood 2023-01-21 23:37:00 171 mm[Hg] [facility]ity of [facility] Diastolic blood 2023-01-21 23:37:00 112 mm[Hg] Unive rsity of pressure [facility] Heart rate 2023-01-21 23:35:00 98 /min [facility] Body temperature 2023-01-21 23:35:00 37.17 Araseli [facility] Respiratory rate 2023-01-21 23:35:00 14 /min [facility] Body height 2023-01-21 23:35:00 167.6 cm [facility] Body weight 2023-01-21 23:35:00 108.863 kg [facility] BMI 2023-01-21 23:35:00 38.74 kg/m2 [facility] Oxygen saturation in 2023-01-21 23:35:00 95 /min [facility] Arterial blood by [place] [facility] P[facility] oxim[facility] Systolic blood 2023-01-02 18:35:00 139 mm[Hg] [facility]ity of [facility] Diastolic blood 2023-01-02 18:35:00 82 mm[Hg] Unive rsity of pressure [facility] Heart rate 2023-01-02 18:22:00 67 /min [facility] Body temperature 2023-01-02 18:22:00 36.06 Araseli [facility] Body height 2023-01-02 18:22:00 167.6 cm [facility] Body weight 2023-01-02 18:22:00 108.818 kg [facility] BMI 2023-01-02 18:22:00 38.72 kg/m2 [facility] Oxygen saturation in 2023-01-02 18:22:00 94 /min [facility] Arterial blood by [place] [facility] P[facility] Systolic blood 2022-11-28 16:44:00 119 mm[Hg] [facility] of pressure [facility] Diastolic blood 2022-11-28 16:44:00 67 mm[Hg] Unive rsity of pressure [facility] Heart rate 2022-11-28 16:44:00 72 /min [facility] Body height 2022-11-28 16:44:00 167.6 cm [facility] Body weight 2022-11-28 16:44:00 104.327 kg [facility] BMI 2022-11-28 16:44:00 37.12 kg/m2 [facility] Oxygen saturation in 2022-11-28 16:44:00 94 /min [facility] Arterial blood by [place] [facility] P[facility]xim[facility] HEIGHT 2022-11-21 14:10:00 167.6 cm WEIGHT 2022-11-21 14:10:00 106.142 kg HEIGHT 2022-11-21 14:10:00 167.6 cm WEIGHT 2022-11-21 14:10:00 106.142 kg HEIGHT 2022-11-21 14:10:00 167.6 cm WEIGHT 2022-11-21 14:10:00 106.142 kg Systolic blood 2022-10-28 22:10:00 158 mm[Hg] [facility] Diastolic blood 2022-10-28 22:10:00 90 mm[Hg] Unive rsity of pressure [facility] Heart rate 2022-10-28 22:10:00 105 /min [facility] Oxygen saturation in 2022-10-28 22:10:00 96 /min University of Arterial blood by [facility] Pulse oximetry Branch Respiratory rate 2022-10-28 21:05:00 30 /min [facility] Body temperature 2022-10-28 15:29:00 36.72 Araseli [facility] Body weight 2022-10-28 15:29:00 111.585 kg [facility] BMI 2022-10-28 15:29:00 39.71 kg/m2 [facility] Systolic blood 2022-04-03 19:51:00 134 mm[Hg] [facility] pressure [facility] Diastolic blood 2022-04-03 19:51:00 86 mm[Hg] Unive rsity of pressure [facility] Heart rate 2022-04-03 19:51:00 83 /min [facility] Oxygen saturation in 2022-04-03 19:51:00 97 /min [facility] Arterial blood by [facility] Pulse oximetry Branch Body temperature 2022-04-03 19:48:00 36.72 Araseli [facility] Respiratory rate 2022-04-03 19:48:00 17 /min [facility] Body weight 2022-04-03 19:48:00 111.63 kg [facility] BMI 2022-04-03 19:48:00 39.72 kg/m2 [facility] Systolic blood 2022-02-02 20:20:00 138 mm[Hg] [facility] Diastolic blood 2022-02-02 20:20:00 90 mm[Hg] Unive rsity of pressure [facility] Heart rate 2022-02-02 20:19:00 78 /min [facility] [place] [facility] Body height 2022-02-02 20:19:00 167.6 cm [facility] Body weight 2022-02-02 20:19:00 104.736 kg [facility] [place] [facility] BMI 2022-02-02 20:19:00 37.27 kg/m2 [facility] Oxygen saturation in 2022-02-02 20:19:00 99 /min University Arterial blood by [facility] Pulse oximetry Branch Systolic blood 2022-11-25 07:05:00 126 mm[Hg] [facility] Diastolic blood 2022-11-25 07:05:00 69 mm[Hg] [facility] Heart rate 2022-11-25 07:05:00 54 /min [facility] Body temperature 2022-11-25 07:05:00 36.28 Araseli [facility] Respiratory rate 2022-11-25 07:05:00 17 /min [facility] Oxygen saturation in 2022-11-25 07:05:00 98 /min [facility] Body height 2022-11-21 14:10:00 167.6 cm [facility] Body weight 2022-11-21 14:10:00 106.142 kg [facility] BMI 2022-11-21 14:10:00 37.77 kg/m2 [facility] Procedures Procedure Date / Time Performing Clinician Source Performed EXTERNAL PROVIDER RECORDS 2023-01-30 05:01:00 Doctor Genao [facility] Name [facility] COMP. METABOLIC PANEL 2023-01-22 01:48:00 [facility] ([id number]) [facility] CBC WITH DIFF 2023-01-22 01:48:00 Diaz [place] Kimberly o [facility] ASSIGNMENT OF BENEFITS 2023-01-22 00:56:42 Doctor Chadwick, [facility] Name Medical Branch NOTICE OF PRIVACY 2023-01-21 23:55:15 Doctor Genao [facility] PRACTICES [facility] CONSENT/REFUSAL FOR 2023-01-21 23:54:39 Doctor Chadwick [facility] DIAGNOSIS AND TREATMENT [facility] MEDICAL RELEASE/CLEARANCE 2023-01-18 05:01:00 Doctor Genao, [facility] [facility] FORMS [facility] HOME ASSESSMENT - 2023-01-03 05:01:00 Doctor Unassigned, [facility] OCCUPATIONAL THERAPY [facility] EXTERNAL PROVIDER RECORDS 2022-12-25 05:01:00 Doctor Unassigned, [facility] EXTERNAL PROVIDER RECORDS 2022-12-10 05:01:00 Doctor Unassigned, [facility] POCT-GLUCOSE METER 2022-11-25 08:14:00 Medina [facility] CBC W/PLT COUNT & AUTO 2022-11-25 05:47:00 Tono Robert [facility] BASIC METABOLIC PANEL 2022-11-25 05:47:00 Robert Power [facility] PHOSPHORUS 2022-11-25 05:47:00 Robert Power [facility] MAGNESIUM 2022-11-25 05:47:[address] [facility] CBC W/PLT COUNT & AUTO 2022-11-25 05:47:00 Robert Power [facility] ECG 12-LEAD 2022-11-24 22:54:38 Unknown, Hl7 [facility] ECG 12-LEAD 2022-11-24 22:54:[address] [facility] ECG 12-LEAD 2022-11-24 22:54:38 Unknown, Hl7 [facility] POCT-GLUCOSE METER 2022-11-24 22:12:00 [facility] BASIC METABOLIC PANEL 2022-11-24 18:58:00 Robert Power [facility] HIGH SENSITIVITY TROPONIN 2022-11-24 18:58:00 Dino Tate I [facility] CBC W/PLT COUNT & AUTO 2022-11-24 18:58:00 Bebeto [facility] MAGNESIUM 2022-11-24 18:58:00 Bebeto [facility] PHOSPHORUS 2022-11-24 18:58:00 Bebeto [facility] CBC W/PLT COUNT & AUTO 2022-11-24 18:58:00 Bebeto Dino [facility] CT BRAIN WITHOUT IV 2022-11-24 18:45:00 Bebeto Dino [facility] POCT-GLUCOSE METER 2022-11-24 17:05:00 Medina [facility] POCT-GLUCOSE METER 2022-11-24 12:37:00 Medina [facility] POCT-GLUCOSE METER 2022-11-24 08:23:00 Medina [facility] CBC W/PLT COUNT & AUTO 2022-11-24 04:18:00 Tono [facility] BASIC METABOLIC PANEL 2022-11-24 04:18:00 Robert Power [facility] PHOSPHORUS 2022-11-24 04:18:[address] [facility] MAGNESIUM 2022-11-24 04:18:[address] [facility] CBC W/PLT COUNT & AUTO 2022-11-24 04:18:00 Tono [facility] POCT-GLUCOSE METER 2022-11-23 21:50:00 Medina [facility] EEG AWAKE AND DROWSY 2022-11-23 19:00:13 Leyla Cha [facility] POCT-GLUCOSE METER 2022-11-23 17:59:00 Medina [facility] CAROTID DOPPLER BILATERAL 2022-11-23 14:00:00 Kevin Pang [facility] POCT-GLUCOSE METER 2022-11-23 12:59:00 Medina [facility] POCT-GLUCOSE METER 2022-11-23 08:11:00 Medina [facility] CBC W/PLT COUNT & AUTO 2022-11-23 04:08:00 Robert Power [facility] PHOSPHORUS 2022-11-23 04:08:00 Tono Robert [facility] MAGNESIUM 2022-11-23 04:08:[address] [facility] CBC W/PLT COUNT & AUTO 2022-11-23 04:08:00 [facility] PO[facility]UCOSE METER 2022-11-22 20:57:00 [facility]SE [facility] 2022-11-22 17:34:00 Ankita [facility] POCT-GLUCOSE METER 2022-11-22 11:21:00 Ankita [facility] CT BRAIN WITHOUT IV 2022-11-22 09:30:00 Paxton Tovar [facility] POCT-GLUCOSE METER 2022-11-22 08:02:[address] [facility] CBC W/PLT COUNT & AUTO 2022-11-22 03:05:00 Tono [facility] BASIC METABOLIC PANEL 2022-11-22 03:05:00 Robert Power [facility] PHOSPHORUS 2022-11-22 03:05:00 Robert Power [facility] MAGNESIUM 2022-11-22 03:05:00 Robert Power [facility] CBC W/PLT COUNT & AUTO 2022-11-22 03:05:00 Robert Power [facility] CT BRAIN WITHOUT IV 2022-11-21 22:44:31 Marilee Betancourt [facility] EEG AWAKE AND DROWSY 2022-11-21 20:01:05 Kevin Pang [facility] METHYLMALONIC ACID 2022-11-21 16:54:00 Robert Power [facility] HC LAB HIV-1 AG W/HIV-1&2 2022-11-21 16:54:00 Henry Power humphrey [facility] AB [facility] RPR 2022-11-21 16:54:00 Robert Power [facility] CBC W/PLT COUNT & AUTO 2022-11-21 16:54:00 Robert Power [facility] DIFFERENTIAL [facility] CBC W/PLT COUNT & AUTO 2022-11-21 16:54:00 Robert Power [facility] HIGH SENSITIVITY TROPONIN 2022-11-21 16:54:00 Henry Power humphrey [facility] I [facility] HEMOGLOBIN A1C 2022-11-21 16:54:00 Robert Power [facility] TSH/FREE T4 IF INDICATED 2022-11-21 16:54:00 Damon Power [facility] VITAMIN B12 2022-11-21 16:54:00 Robert Power [facility] WA INSERT 2022-11-21 16:28:15 Kevin Pang [facility] CATH,ART,PERCUT,SHORTTERM [facility] ECG 12-LEAD 2022-11-21 16:05:42 Unknown, 7 [facility] ECG 12-LEAD 2022-11-21 16:05:42 Unknown, 7 [facility] ECG 12-LEAD 2022-11-21 16:04:59 Dino Tate [facility] ECG 12-LEAD 2022-11-21 16:04:59 Unknown, 7 [facility] ECG 12-LEAD 2022-11-21 16:04:59 Unknown, 7 [facility] CREATINE KINASE (CK) 2022-11-21 15:19:00 Robert Power [facility] COMPREHENSIVE METABOLIC 2022-11-21 15:19:00 Robert Power [facility] PANEL [facility] PHOSPHORUS 2022-11-21 15:19:00 Robert Power [facility] MAGNESIUM 2022-11-21 15:19:00 PostolowsRobert ray [facility] PROTHROMBIN TIME/INR 2022-11-21 15:19:00 Robert Power [facility], [facility] APTT 2022-11-21 15:19:00 JesusRobert wolf [facility] LIPID PANEL 2022-11-21 15:19:00 [facility] C-REACTIVE PROTEIN 2022-11-21 15:19:00 TonoRobert [facility] POCT-GLUCOSE METER 2022-11-21 14:42:[address] [facility] EKG-SCANNED 2022-11-21 00:00:00 [facility] US TESTICULAR TORSION 2022-10-28 18:10:00 Candida Paul [facility] BASIC METABOLIC PANEL 2022-10-28 15:47:00 [facility] (NA, K, CL, CO2, GLUCOSE, Medica l Branch BUN, CREATININE, CA) CBC WITH DIFF 2022-10-28 15:47:00 Candida Paul [facility] URINALYSIS 2022-10-28 15:47:00 Candida Paul [facility] CONSENT/REFUSAL FOR 2022-10-28 15:25:48 Doctor Chadwick, [facility] DIAGNOSIS AND TREATMENT [facility] EXTERNAL PROVIDER - ADC 2022-05-03 06:01:00 Doctor Chadwick, [facility] CARDIOLOGY [facility] AUTHORIZATION TO RELEASE 2022-04-03 06:01:00 Doctor Chadwick, [facility] PHI TO [facility] US ABDOMEN COMPLETE 2022-02-13 18:24:56 Blessing Yanes [facility] FLU VACC ([id number]), 6 2022-02-02 20:37:25 Blessing Yanes [facility] MO-64 YRS, .5ML, IM, QUAD [facility] (FLUCELVAX) MEDICATION CORRESPONDENCE 2022-01-19 05:01:00 Doctor Unassigned, [facility] DME/SUPPLY JUSTIFICATION 2021-12-25 05:01:00 Doctor Unassigned, [facility] CT Spine lumbar myelogram 2017-05-30 00:00:00 [facility] [id number] Plan of Care Planned Activity Planned Date Details Comments Source Future Scheduled 2025-11-21 Lipid panel (procedure) [facility] 00:00:00 [code = 21246846] Medical Ce nter Future Scheduled 2025-11-21 Lipid panel (procedure) [facility] 00:00:00 [code = 02492626] Medical Ce nter Future Scheduled 2025-11-21 Lipid panel (procedure) [facility] 00:00:00 [code = 17411080] Medical Ce nter Future Scheduled 2025-11-21 Lipid panel (procedure) [facility] 00:00:00 [code = 62827935] Medical Ce nter Future Scheduled 2025-11-21 Lipid panel (procedure) [facility] 00:00:00 [code = 25407656] Medical Ce nter Future Scheduled 2025-11-21 Lipid panel (procedure) [facility] 00:00:00 [code = 51678131] Medical Ce nter Future Scheduled 2023-06-09 DTAP/TDAP/TD [...] (2 - Td or Tdap)] Future Scheduled 2023-01-12 Screening for malignant [facility] 18:12:27 neoplasm of colon Hospital (procedure) [code = 545184137] Future Scheduled 2023-01-12 Screening for malignant [facility] 18:12:27 neoplasm of colon Hospital (procedure) [code = 908462592] Future Scheduled 2023-01-12 Screening for malignant [facility] 18:12:27 neoplasm of colon Hospital (procedure) [code = 277253275] Future Scheduled 2023-01-12 COVID-19 VACCINE (#1) [facility] 18:12:27 [code = COVID-19 VACCINE Hos pital (#1)] Future Scheduled 2023-01-12 Screening for malignant [facility] 18:12:27 neoplasm of colon Hospital (procedure) [code = 888616585] Future Scheduled 2023-01-12 Screening for malignant [facility] 18:12:27 neoplasm of colon Hospital (procedure) [code = 967729726] Future Scheduled 2023-01-12 SHINGLES VACCINES (1 of [facility] 18:12:27 2) [code = SHINGLES Hospital VACCINES (1 of 2)] Future Scheduled 2023-01-12 INFLUENZA VACCINE (#1) [facility] Test 18:12:27 [code = INFLUENZA VACCINE Ho spital (#1)] Future Scheduled 2023-01-12 Screening for malignant [facility] 18:12:27 neoplasm of colon Hospital (procedure) [code = 431580658] Future Scheduled 2023-01-12 Screening for malignant [facility] 18:12:27 neoplasm of colon Hospital (procedure) [code = 676885017] Future Scheduled 2023-01-12 Screening for malignant [facility] 18:12:27 neoplasm of colon Hospital (procedure) [code = 377811723] Future Scheduled 2023-01-12 COVID-19 VACCINE (#1) [facility] 18:12:27 [code = COVID-19 VACCINE Hos pital (#1)] Future Scheduled 2023-01-12 Screening for malignant [facility] 18:12:27 neoplasm of colon Hospital (procedure) [code = 653281879] Future Scheduled 2023-01-12 Screening for malignant [facility] 18:12:27 neoplasm of colon Hospital (procedure) [code = 896802344] Future Scheduled 2023-01-12 SHINGLES VACCINES (1 of [facility] 18:12:27 2) [code = SHINGLES Hospital VACCINES (1 of 2)] Future Scheduled 2023-01-12 INFLUENZA VACCINE (#1) [facility] 18:12:27 [code = INFLUENZA VACCINE Ho spital (#1)] Future Scheduled 2023-01-12 Screening for malignant [facility] 18:12:27 neoplasm of colon Hospital (procedure) [code = 542553440] Future Scheduled 2023-01-12 Screening for malignant [facility] 18:12:27 neoplasm of colon Hospital (procedure) [code = 238301682] Future Scheduled 2023-01-12 Screening for malignant [facility] 18:12:27 neoplasm of colon Hospital (procedure) [code = 455003640] Future Scheduled 2023-01-12 COVID-19 VACCINE (#1) [facility] 18:12:27 [code = COVID-19 VACCINE Hos pital (#1)] Future Scheduled 2023-01-12 Screening for malignant [facility] 18:12:27 neoplasm of colon Hospital (procedure) [code = 940654542] Future Scheduled 2023-01-12 Screening for malignant [facility] 18:12:27 neoplasm of colon Hospital (procedure) [code = 847968402] Future Scheduled 2023-01-12 SHINGLES VACCINES (1 of [facility] 18:12:27 2) [code = SHINGLES Hospital VACCINES (1 of 2)] Future Scheduled 2023-01-12 INFLUENZA VACCINE (#1) [facility] 18:12:27 [code = INFLUENZA VACCINE Ho spital (#1)] Future Scheduled 2023-01-11 Influenza Vaccine (#1) [...] (#1)] Future Scheduled 2022-12-20 Screening for malignant [facility] 21:45:19 neoplasm of colon Hospital (procedure) [code = 265280523] Future Scheduled 2022-12-20 Screening for malignant [facility] 21:45:19 neoplasm of colon Hospital (procedure) [code = 462795694] Future Scheduled 2022-12-20 Screening for malignant [facility] 21:45:19 neoplasm of colon Hospital (procedure) [code = 895997800] Future Scheduled 2022-12-20 COVID-19 VACCINE (#1) [facility] 21:45:19 [code = COVID-19 VACCINE Hos pital (#1)] Future Scheduled 2022-12-20 Screening for malignant [facility] 21:45:19 neoplasm of colon Hospital (procedure) [code = 277652088] Future Scheduled 2022-12-20 Screening for malignant [facility] 21:45:19 neoplasm of colon Hospital (procedure) [code = 200406816] Future Scheduled 2022-12-20 SHINGLES VACCINES (1 of [facility] 21:45:19 2) [code = SHINGLES Hospital VACCINES (1 of 2)] Future Scheduled 2022-12-20 INFLUENZA VACCINE [code = [facility] 21:45:19 INFLUENZA VACCINE] Hospital Future Scheduled 2022-12-20 Screening for malignant [facility] 21:45:19 neoplasm of colon Hospital (procedure) [code = 614559200] Future Scheduled 2022-12-20 Screening for malignant [facility] 21:45:19 neoplasm of colon Hospital (procedure) [code = 634467019] Future Scheduled 2022-12-20 Screening for malignant [facility] 21:45:19 neoplasm of colon Hospital (procedure) [code = 566014481] Future Scheduled 2022-12-20 COVID-19 VACCINE (#1) [facility] 21:45:19 [code = COVID-19 VACCINE Hos pital (#1)] Future Scheduled 2022-12-20 Screening for malignant [facility] 21:45:19 neoplasm of colon Hospital (procedure) [code = 111103720] Future Scheduled 2022-12-20 Screening for malignant [facility] 21:45:19 neoplasm of colon Hospital (procedure) [code = 437759794] Future Scheduled 2022-12-20 SHINGLES VACCINES (1 of [facility] 21:45:19 2) [code = SHINGLES Hospital VACCINES (1 of 2)] Future Scheduled 2022-12-20 ZZZ INFLUENZA VACCINE [facility] 21:45:19 [code = ZZZ INFLUENZA Hospit al VACCINE] Future Scheduled 2022-11-28 Screening for malignant [facility] 11:18:16 neoplasm of colon Hospital (procedure) [code = 173699614] Future Scheduled 2022-11-28 Screening for malignant [facility] 11:18:16 neoplasm of colon Hospital (procedure) [code = 032516536] Future Scheduled 2022-11-28 Screening for malignant [facility] 11:18:16 neoplasm of colon Hospital (procedure) [code = 126876542] Future Scheduled 2022-11-28 COVID-19 VACCINE (#1) [facility] 11:18:16 [code = COVID-19 VACCINE Hos pital (#1)] Future Scheduled 2022-11-28 Screening for malignant [facility] 11:18:16 neoplasm of colon Hospital (procedure) [code = 926681815] Future Scheduled 2022-11-28 Screening for malignant [facility] 11:18:16 neoplasm of colon Hospital (procedure) [code = 484148168] Future Scheduled 2022-11-28 SHINGLES VACCINES (1 of [facility] 11:18:16 2) [code = SHINGLES Hospital VACCINES (1 of 2)] Future Scheduled 2022-11-28 INFLUENZA VACCINE [code = [facility] 11:18:16 INFLUENZA VACCINE] Hospital Future Scheduled 2022-11-21 Screening for malignant [facility] 10:58:39 neoplasm of colon Hospital (procedure) [code = 165138292] Future Scheduled 2022-11-21 Screening for malignant [facility] 10:58:39 neoplasm of colon Hospital (procedure) [code = 491330919] Future Scheduled 2022-11-21 Screening for malignant [facility] 10:58:39 neoplasm of colon Hospital (procedure) [code = 025738169] Future Scheduled 2022-11-21 COVID-19 VACCINE (#1) [facility] 10:58:39 [code = COVID-19 VACCINE Hos pital (#1)] Future Scheduled 2022-11-21 Screening for malignant [facility] 10:58:39 neoplasm of colon Hospital (procedure) [code = 392649324] Future Scheduled 2022-11-21 Screening for malignant [facility] 10:58:39 neoplasm of colon Hospital (procedure) [code = 070202089] Future Scheduled 2022-11-21 SHINGLES VACCINES (1 of [facility] 10:58:39 2) [code = SHINGLES Hospital VACCINES (1 of 2)] Future Scheduled 2022-11-21 INFLUENZA VACCINE [code = [facility] 10:58:39 INFLUENZA VACCINE] Hospital Future Scheduled 2022-10-25 Screening for malignant [facility] 12:18:53 neoplasm of colon Hospital (procedure) [code = 118387528] Future Scheduled 2022-10-25 SHINGLES VACCINES (1 of [facility] 12:18:53 2) [code = SHINGLES Hospital VACCINES (1 of 2)] Future Scheduled 2022-10-25 INFLUENZA VACCINE [code = [facility] 12:18:53 INFLUENZA VACCINE] Hospital Future Scheduled 2022-10-25 Screening for malignant [facility] 12:18:53 neoplasm of colon Hospital (procedure) [code = 909396193] Future Scheduled 2022-10-25 Screening for malignant [facility] 12:18:53 neoplasm of colon Hospital (procedure) [code = 786838767] Future Scheduled 2022-10-25 Screening for malignant [facility] 12:18:53 neoplasm of colon Hospital (procedure) [code = 115515076] Future Scheduled 2022-10-25 COVID-19 VACCINE (#1) [facility] 12:18:53 [code = COVID-19 VACCINE Hos pital (#1)] Future Scheduled 2022-10-25 Screening for malignant [facility] 12:18:53 neoplasm of colon Hospital (procedure) [code = 161811804] Future Scheduled 2022-09-10 Medicare IPPE (WELCOME TO [...] Future Scheduled 2022-08-15 SHINGLES VACCINES (1 of [facility] 23:12:16 2) [code = SHINGLES Hospital VACCINES (1 of 2)] Future Scheduled 2022-08-15 INFLUENZA VACCINE [code = [facility] 23:12:16 INFLUENZA VACCINE] Hospital Future Scheduled [...] Future Scheduled 2022-04-25 SHINGLES VACCINES (1 of [facility] 20:19:34 2) [code = SHINGLES Hospital VACCINES (1 of 2)] Future Scheduled 2022-04-25 INFLUENZA VACCINE [code = [facility] 20:19:34 INFLUENZA VACCINE] Hospital Future Scheduled 2022-04-25 COVID-19 VACCINE (#1) [facility] 20:19:34 [code = COVID-19 VACCINE Hos pital (#1)] Future Scheduled 2022-04-25 COLONOSCOPY SCREENING [facility] 20:19:34 [code = COLONOSCOPY Hospital SCREENING] Future Scheduled 2022-04-25 SHINGLES VACCINES (1 of [facility] 20:19:34 2) [code = SHINGLES Hospital VACCINES (1 of 2)] Future Scheduled 2022-04-25 INFLUENZA VACCINE [code = [facility] 20:19:34 INFLUENZA VACCINE] Hospital Future Scheduled 2022-04-25 COVID-19 VACCINE (#1) [facility] 20:19:34 [code = COVID-19 VACCINE Hos pital (#1)] Future Scheduled 2022-04-25 COLONOSCOPY SCREENING [facility] 20:19:34 [code = COLONOSCOPY Hospital SCREENING] Future Scheduled 2022-04-25 SHINGLES VACCINES (1 of [facility] 20:19:34 2) [code = SHINGLES Hospital VACCINES (1 of 2)] Future Scheduled 2022-04-25 INFLUENZA VACCINE [code = [facility] 20:19:34 INFLUENZA VACCINE] Hospital Future Scheduled 2022-04-25 COVID-19 VACCINE (#1) [facility] 20:19:34 [code = COVID-19 VACCINE Hos pital (#1)] Future Scheduled 2022-04-25 COLONOSCOPY SCREENING [facility] 20:19:34 [code = COLONOSCOPY Hospital SCREENING] Future Scheduled 2022-04-25 SHINGLES VACCINES (1 of [facility] 20:19:34 2) [code = SHINGLES Hospital VACCINES (1 of 2)] Future Scheduled 2022-04-25 INFLUENZA VACCINE [code = [facility] 20:19:34 INFLUENZA VACCINE] Hospital Future Scheduled 2022-03-14 HEPATITIS B VACCINES (1 [facility] 23:23:26 of 3 - 3-dose series) Hospit al [code = HEPATITIS B VACCINES (1 of 3 - 3-dose series)] Future Scheduled 2022-03-14 COVID-19 VACCINE (#1) [facility] 23:23:26 [code = COVID-19 VACCINE Hos pital (#1)] Future Scheduled 2022-03-14 COLONOSCOPY SCREENING [facility] 23:23:26 [code = COLONOSCOPY Hospital SCREENING] Future Scheduled 2022-03-14 SHINGLES VACCINES (1 of [facility] 23:23:26 2) [code = SHINGLES Hospital VACCINES (1 of 2)] Future Scheduled 2022-03-14 INFLUENZA VACCINE [code = [facility] 23:23:26 INFLUENZA VACCINE] Hospital Future Scheduled 2022-03-14 HEPATITIS B VACCINES (1 [facility] 23:23:26 of 3 - 3-dose series) Hospit al [code = HEPATITIS B VACCINES (1 of 3 - 3-dose series)] Future Scheduled 2022-03-14 COVID-19 VACCINE (#1) [facility] 23:23:26 [code = COVID-19 VACCINE Hos pital (#1)] Future Scheduled 2022-03-14 COLONOSCOPY SCREENING [facility] 23:23:26 [code = COLONOSCOPY Hospital SCREENING] Future Scheduled 2022-03-14 SHINGLES VACCINES (1 of [facility] 23:23:26 2) [code = SHINGLES Hospital VACCINES (1 of 2)] Future Scheduled 2022-03-14 INFLUENZA VACCINE [code = [facility] 23:23:26 INFLUENZA VACCINE] Hospital Future Scheduled 2022-01-03 INFLUENZA VACCINE [code = [facility] 17:56:50 INFLUENZA VACCINE] Hospital Future Scheduled 2022-01-03 HEPATITIS B VACCINES (1 [facility] 17:56:50 of 3 - 3-dose series) Hospit al [code = HEPATITIS B VACCINES (1 of 3 - 3-dose series)] Future Scheduled 2022-01-03 COVID-19 VACCINE (#1) [facility] 17:56:50 [code = COVID-19 VACCINE Hos pital (#1)] Future Scheduled 2022-01-03 COLONOSCOPY SCREENING [facility] 17:56:50 [code = COLONOSCOPY Hospital SCREENING] Future Scheduled 2022-01-03 SHINGLES VACCINES (1 of [facility] 17:56:50 2) [code = SHINGLES Hospital VACCINES (1 of 2)] Future Scheduled 2022-01-03 INFLUENZA VACCINE [code = [facility] 17:56:50 INFLUENZA VACCINE] Hospital Future Scheduled 2022-01-03 HEPATITIS B VACCINES (1 [facility] 17:56:50 of 3 - 3-dose series) Hospit al [code = HEPATITIS B VACCINES (1 of 3 - 3-dose series)] Future Scheduled 2022-01-03 COVID-19 VACCINE (#1) [facility] 17:56:50 [code = COVID-19 VACCINE Hos pital (#1)] Future Scheduled 2022-01-03 COLONOSCOPY SCREENING [facility] 17:56:50 [code = COLONOSCOPY Hospital SCREENING] Future Scheduled 2022-01-03 SHINGLES VACCINES (1 of [facility] 17:56:50 2) [code = SHINGLES Hospital VACCINES (1 of 2)] Future Scheduled 2022-01-03 INFLUENZA VACCINE [code = [facility] 17:56:50 INFLUENZA VACCINE] Hospital Future Scheduled 2022-01-03 HEPATITIS B VACCINES (1 [facility] 17:56:50 of 3 - 3-dose series) Hospit al [code = HEPATITIS B VACCINES (1 of 3 - 3-dose series)] Future Scheduled 2022-01-03 COVID-19 VACCINE (#1) [facility] 17:56:50 [code = COVID-19 VACCINE Hos pital (#1)] Future Scheduled 2022-01-03 COLONOSCOPY SCREENING [facility] 17:56:50 [code = COLONOSCOPY Hospital SCREENING] Future Scheduled 2022-01-03 SHINGLES VACCINES (1 of [facility] 17:56:50 2) [code = SHINGLES Hospital VACCINES (1 of 2)] Future Scheduled 2022-01-03 INFLUENZA VACCINE [code = [facility] 17:56:50 INFLUENZA VACCINE] Hospital Future Scheduled 2022-01-03 HEPATITIS B VACCINES (1 [facility] 17:56:50 of 3 - 3-dose series) Hospit al [code = HEPATITIS B VACCINES (1 of 3 - 3-dose series)] Future Scheduled 2022-01-03 COVID-19 VACCINE (#1) [facility] 17:56:50 [code = COVID-19 VACCINE Hos pital (#1)] Future Scheduled 2022-01-03 COLONOSCOPY SCREENING [facility] 17:56:50 [code = COLONOSCOPY Hospital SCREENING] Future Scheduled 2022-01-03 SHINGLES VACCINES (1 of [facility] 17:56:50 2) [code = SHINGLES Hospital VACCINES (1 of 2)] Future Scheduled 2022-01-03 INFLUENZA VACCINE [code = [facility] 17:56:50 INFLUENZA VACCINE] Hospital Future Scheduled 2022-01-03 HEPATITIS B VACCINES (1 [facility] 17:56:50 of 3 - 3-dose series) Hospit al [code = HEPATITIS B VACCINES (1 of 3 - 3-dose series)] Future Scheduled 2022-01-03 COVID-19 VACCINE (#1) [facility] 17:56:50 [code = COVID-19 VACCINE Hos pital (#1)] Future Scheduled 2022-01-03 COLONOSCOPY SCREENING [facility] 17:56:50 [code = COLONOSCOPY Hospital SCREENING] Future Scheduled 2022-01-03 SHINGLES VACCINES (1 of [facility] 17:56:50 2) [code = SHINGLES Hospital [...] screening [facility] (procedure[facility] [code = 877667039] Future Scheduled [address] [facility] screening [facility] (procedure) [code = 984623149] Future Scheduled [address] [...] colon Medical Ce nter (procedure) [code = 201656767] Future Scheduled 1970 Screening for malignant [facility] 00:00:00 neoplasm of colon Medical Ce nter (procedure) [code = 636656447] Future Scheduled 1970 Screening for malignant [facility] 00:00:00 neoplasm of colon Medical Ce nter (procedure) [code = 411292216] Future Scheduled 1970 Screening for malignant [facility] 00:00:00 neoplasm of colon Medical Ce nter (procedure) [code = 357747896] Future Scheduled 1970 Sigmoidoscopy [code = [facility]] Medical Cente r Future Scheduled 1970 CT Colonography (combo) [facility] 00:00:00 [code = CT Colonography [facility] (combo)] Future Scheduled 1970 Screening for malignant [facility] 00:00:00 neoplasm of colon Medical Ce nter (procedure) [code = 529119775] Future Scheduled 1970 Screening for malignant [facility] 00:00:00 neoplasm of colon Medical Ce nter (procedure) [code = 313495784] Future Scheduled 1970 Screening for malignant [facility] 00:00:00 neoplasm of colon Medical Ce nter (procedure) [code = 636282679] Future Scheduled 1970 Screening for malignant [facility] 00:00:00 neoplasm of colon Medical Ce nter (procedure) [code = 422243505] Future Scheduled 1970 Sigmoidoscopy [facility]code = [facility]oscopy] Medical Cente r Future Scheduled 1970 CT Colonography (combo) [facility] 00:00:00 [code = CT Colonography [facility] (combo)] Future Scheduled 1970 Screening for malignant [facility] 00:00:00 neoplasm of colon Medical Ce nter (procedure) [code = 176951878] Future Scheduled 1970 Screening for malignant [facility] 00:00:00 neoplasm of colon Medical Ce nter (procedure) [code = 913013824] Future Scheduled 1970 Screening for malignant [facility] 00:00:00 neoplasm of colon Medical Ce nter (procedure) [code = 957012342] Future Scheduled 1970 Screening for malignant [facility] 00:00:00 neoplasm of colon Medical Ce nter (procedure) [code = 393238702] Future Scheduled 1970 Sigmoidoscopy [facility]code = [facility] Sigmoidoscopy] Medical Celestee r Future Scheduled 1970 CT Colonography (combo) [facility] 00:00:00 [code = CT Colonography [facility] (combo)] Future Scheduled 1970 Screening for malignant [facility] 00:00:00 neoplasm of colon Medical Ce nter (procedure) [code = 532992657] Future Scheduled 1970 Screening for malignant [facility] 00:00:00 neoplasm of colon Medical Ce nter (procedure) [code = 059967946] Future Scheduled 1970 Screening for malignant [facility] 00:00:00 neoplasm of colon Medical Ce nter (procedure) [code = 818446510] Future Scheduled 1970 Screening for malignant [facility] 00:00:00 neoplasm of colon Medical Ce nter (procedure) [code = 319760652] Future Scheduled 1970 Sigmoidoscopy [facility]code [facility]oscopy] Medical Cente r Future Scheduled 1970 CT Colonography (combo) [facility] 00:00:00 [code = CT Colonography [facility] (combo)] Future Scheduled 1970 Screening for malignant [facility] 00:00:00 neoplasm of colon Medical Ce nter (procedure) [code = 918935908] Future Scheduled 1970 Screening for malignant [facility] 00:00:00 neoplasm of colon Medical Ce nter (procedure) [code = 297098743] Future Scheduled 1970 Screening for malignant [facility] 00:00:00 neoplasm of colon Medical Ce nter (procedure) [code = 733233933] Future Scheduled 1970 Screening for malignant [facility] 00:00:00 neoplasm of colon Medical Ce nter (procedure) [code = 401548396] Future Scheduled 1970 Sigmoidoscopy [facility]code [facility] S[facility]oidoscopy] Medical Cente r Future Scheduled 1970 CT Colonography (combo) [facility] 00:00:00 [code = CT Colonography [facility] (combo)] Future Scheduled 1970 Screening for malignant [facility] 00:00:00 neoplasm of colon Medical Ce nter (procedure) [code = 093673969] Future Scheduled 1970 Screening for malignant [facility] 00:00:00 neoplasm of colon Medical Ce nter (procedure) [code = 929121844] Future Scheduled 1970 Screening for malignant [facility] 00:00:00 neoplasm of colon Medical Ce nter (procedure) [code = 088162871] Future Scheduled 1970 Screening for malignant [facility] 00:00:00 neoplasm of colon Medical Ce nter (procedure) [code = 979667557] Future Scheduled 1970 Sigmoidoscopy [facility]code [facility] S[facility]oscopy] Medical Cente r Encounters Start End Encounter Admission Attending Care Care Encounter Source Date/Time Date/Time Type Type Clinicians Facility Department ID 2022-11-24 [facility] [id number] [facility] 18:28:35 MRINALINI 2022-11-24 Inpatient ER MEDINA, [facility] [id number] [facility] 08:11:11 MRINALINI 2022-11-23 [facility] ER [facility] [id number] [facility] 12:42:16 [facility] 2022-11-22 Inpatient [facility] [id number] [facility] 09:39:31 2022-11-22 Inpatient ER [facility] [id number] [facility] 09:07:19 2022-11-21 Inpatient ER CATES, [facility] [id number] [facility] 22:21:04 [facility] 2022-11-21 Inpatient ER CATES, [facility] [id number] [facility] 16:26:35 [facility] 2023-02-05 2023-02-05 Outpatient R HAKAN [facility] [id number] Univers 12:30:00 12:30:00 RIN donnelly [facility] 2023-01-30 2023-01-30 Ancillary Katie Hurtado [facility] 1 .2.840.114 [id number] Univers 12:30:00 13:30:00 [facility] [place] [phone] Or dical [address] 2023-01-30 2023-01-30 Outpatient R JIM LIRA [facility] [id number] Univers 12:30:00 12:30:00 JIM LIRA joie [facility] 2023-01-30 2023-01-30 Orders Doctor ALEM 1.2.840.114 [id number] Univers 00:00:00 00:00:00 Only Unassigned, JOSESITO 350.1.13.10 ity of [place] [facility] 4.2.7.2.686 Adrien as [phone] [address] 2023-01-21 2023-01-21 Emergency X [facility] ERT [id number] Univers 19:17:00 23:55:00 DIAZ donnelly [facility] 2023-01-21 2023-01-21 Emergency [facility] 1.2.868.438 [id number] Univers 19:17:00 23:55:00 Diaz CARLOS 350.1.13.10 i ty of [place].2.[place] [id number] [facility] [address] 2023-01-21 2023-01-21 Outpatient R ZAHEER [facility] [id number] Univers 18:15:00 18:50:29 RUBEN donnelly [facility] 2023-01-21 2023-01-21 Nurse Nurse, [facility] 1.2.840.114 [id number] Univers 18:15:00 18:50:29 Visit Unknown, Attending HEALTH 350.1.13.10 ity of Zaheer Ruben CARLOS 4.2.7.2.686 [place] BORIS?BLEA [phone] [facility] [address] MEDICAL OFFICE [facility] 2023-01-21 2023-01-21 Telephone Farzana [facility] 1.2.364.864 [id number] Univers 00:00:00 00:00:00 Blessing Herr HEALTH 350.1.13.10 i ty of [place] 4.2.7.2.686 Adrien as BORIS?BLEA [phone] [facility] 044 [facility] OFFICE [facility] 2023-01-18 2023-01-18 Orders Doctor ALEM 1.2.840.114 [id number] Univers 00:00:00 00:00:00 Only Unassigned, JOSESITO 350.1.13.10 ity of [place] [facility] 4.2.7.2.686 Adrien as [phone] [facility] [address] 2023-01-04 2023-01-04 Outpatient R FARZANA [facility] [id number] Univers 15:30:00 15:30:00 BLESSING donnelly [facility] 2023-01-04 2023-01-04 Telephone Jacqueline [facility] 1.2.840.114 [id number] Univers 00:00:00 00:00:00 , Jamila HEALTH 350.1.13.10 ity of [place] CARLOS 4.2.7.2.686 Adrien as BORIS?BLEA [phone] [facility] [address] MEDICAL OFFICE [facility] 2023-01-03 2023-01-03 [facility] 1.2.840.114 [id number] Univers 00:00:00 00:00:00 Secure Msg Blessing A HEALTH 350.1.13.10 ity of [place] 4.2.7.2.686 Adrien as BORIS?BLEA [phone] [address] MEDICAL OFFICE BUILDING 2023-01-03 2023-01-03 Orders Doctor ALEM 1.2.840.114 [id number] Univers 00:00:00 00:00:00 Only Unassigned, JOSESITO 350.1.13.10 ity of [place] [facility] 4.2.7.2.686 Adrien as [phone] [address] 2023-01-02 2023-01-02 [facility] [id number] Univers 13:00:00 14:19:25 BLESSING ity of [facility] 2023-01-02 2023-01-02 Office [facility] 1.2.840.114 [id number] Univers 13:00:00 14:19:25 Visit Blessing A HEALTH 350.1.13.10 i ty [facility] 4.2.7.2.686 Adrien as BORIS?BLEA [phone] [address] OFFICE [facility] 2022-12-31 2022-12-31 Telephone Jacqueline [facility] 1.2.840.114 [id number] Univers 00:00:00 00:00:00 , Jamila HEALTH 350.1.13.10 ity of M [place] 4.2.7.2.686 Adrien as BORIS?BLEA [phone] [address] OFFICE [facility] 2022-12-28 2022-12-28 [facility] 1.2.840.114 [id number] Univers 00:00:00 00:00:00 Secure Msg Blessing A HEALTH 350.1.13.10 ity of [place] 4.2.7.2.686 Adrien as BORIS?BLEA [phone] [address] OFFICE [facility] 2022-12-25 2022-12-25 Orders Doctor ALEM 1.2.840.114 [id number] Univers 00:00:00 00:00:00 Only Unassigned, JOSESITO 350.1.13.10 ity of [place] [facility] 4.2.7.2.686 Adrien as [phone] [address] 2022-12-25 2022-12-[address] [facility] 1.2.965.453 [id number] Univers 00:00:00 00:00:00 Blessing A HEALTH 350.1.13.10 i ty of [place] 4.2.7.2.686 Adrien as BORIS?BLEA [phone] [address] MEDICAL OFFICE [facility] 2022-12-25 2022-12-[address] [facility] 1.2.276.811 [id number] Univers 00:00:00 00:00:00 Blessing A HEALTH 350.1.13.10 i ty of [place] 4.2.7.2.686 Adrien as BORIS?BLEA [id number] [address] OFFICE [facility] 2022-12-20 2022-12-[address] [facility] 1.2.840.114 [id number] Univers 00:00:00 00:00:00 Blessing A HEALTH 350.1.13.[address] [facility] 4.2.7.2.686 Adrien as BORIS?BLEA [phone] [address] OFFICE [facility] 2022-12-17 2022-12-17 Telephone [facility] 1.2.840.114 [id number] Univers 00:00:00 00:00:00 , Jamila HEALTH 350.1.13.10 ity of [facility] 4.2.7.2.686 Adrien as BORIS?BLEA [phone] [address] OFFICE [facility] 2022-12-13 2022-12-13 Outpatient R FARZANA [facility] [id number] Univers 12:30:00 12:30:00 BLESSING donnelly [facility] 2022-12-12 2022-12-12 Outpatient R FARZANA [facility] [id number] Univers 12:30:00 12:30:00 BLESSING donnelly [facility] 2022-12-11 2022-12-11 Telephone Farzana, [facility] 1.2.465.023 [id number] Univers 00:00:00 00:00:00 Blessing A HEALTH 350.1.13.10 i ty of [place] 4.2.7.2.686 Adrien as BORIS?BLEA [id number] [address] OFFICE [facility] 2022-12-11 2022-12-11 Patient Farzana, [facility] 1.2.840.114 [id number] Univers 00:00:00 00:00:00 Secure Msg Blessing A HEALTH 350.1.13.10 ity of [place] 4.2.7.2.686 Adrien as BORIS?BLEA [phone] [address] OFFICE [facility] 2022-12-10 2022-12-10 Orders Doctor ALEM 1.2.840.114 [id number] Univers 00:00:00 00:00:00 Only Unassigned, JOSESITO 350.1.13.10 ity of [place] [facility] 4.2.7.2.686 Adrien as [phone] [address] 2022-12-07 2022-12-07 Telephone [facility] 1.2.840.114 [id number] Univers 00:00:00 00:00:00 , Jamila HEALTH 350.1.13.10 ity of M [place] 4.2.7.2.686 Adrien as BORIS?BLEA [id number] [address] OFFICE [facility] 2022-12-05 2022-12-05 Telephone Jacqueline [facility] 1.2.840.114 [id number] Univers 00:00:00 00:00:00 , Jamila HEALTH 350.1.13.10 ity of M [place] 4.2.7.2.686 Adrien as BORIS?BLEA [id number] [address] OFFICE [facility] 2022-12-05 2022-12-05 Patient Farzana, [facility] 1.2.840.114 [id number] Univers 00:00:00 00:00:00 Secure Msg Blessing A HEALTH 350.1.13.10 ity of [place] 4.2.7.2.686 Adrien as BORIS?BLEA [id number] [address] MEDICAL OFFICE BUILDING 2022-12-04 2022-12-04 Refill [facility] 1.2.840.114 [id number] Univers 00:00:00 00:00:00 , Jamila [facility] 350.1.13.10 ity of M [place] 4.2.7.2.686 Adrien as BORIS?BLEA [phone] [address] MEDICAL OFFICE BUILDING 2022-12-04 2022-12-04 Refill [facility] 1.2.840.114 [id number] Univers 00:00:00 00:00:00 , [facility] 350.1.13.10 ity of M [place] 4.2.7.2.686 Adrien as BORIS?BLEA [phone] [address] OFFICE [facility] 2022-11-30 2022-11-30 Outpatient R DEVEN [facility] [id number] Univers 14:00:00 14:00:00 DILIP calderóny o f [facility] 2022-11-28 2022-11-28 Outpatient R [facility] [id number] Univers 11:20:00 12:31:29 , JAMILA it y of [facility] 2022-11-28 2022-11-28 Office [facility] 1.2.840.114 [id number] Univers 11:20:00 12:31:29 Visit , Jamila [facility] 350.1.13.10 ity of M [place] 4.2.7.2.686 Adrien as BORIS?BLEA [id number] [address] MEDICAL OFFICE [facility] 2022-11-28 2022-11-28 Patient Fabian [facility] 1.2.840.114 [id number] Univers 00:00:00 00:00:00 Outreach Ashley Francis [facility] 350.1.13.10 i ty of [place] 4.2.7.2.686 Adrien as BORIS?BLEA [phone] [address] MEDICAL OFFICE BUILDING 2022-11-26 2022-11-26 Telephone [facility] 1.2.295.822 [id number] Univers 00:00:00 00:00:00 Blessing A HEALTH 350.1.13.10 i ty storm [place] 4.2.7.2.686 Adrien as BORIS?BLENemesio [phone] Or susanna ROWAN [address] MEDICAL OFFICE BUILDING 2022-11-21 2022-11-25 Inpatient ER MEDINA [facility] Neuro ICU [id number] [facility] 14:05:00 11:27:00 [facility] 2022-11-21 2022-11-25 [facility] ER Dalila jones [facility] [id number] 14:05:[facility] 11:27:00 Encounter [place] Cates Najamus M edical Kulkarni, [facility] 2022-11-21 2022-11-25 [facility] [id number] 14:05:00 11:27:00 Encounter [place] Cates Najamus M edical Kulkarni, [facility] 2022-11-24 2022-11-24 Orders [facility] [id number] 00:00:00 00:00:00 Only [facility] 2022-11-24 2022-11-24 Orders [facility] [id number] 00:00:00 00:00:00 Only [facility] 2022-11-23 2022-11-23 Telephone [facility] 1.2.025.732 [id number] Univers 00:00:00 00:00:00 Dilip CARLOS 350.1.13.10 ity of [place] 4.2.7.2.686 Maritza FOLEY [phone] Or susanna HUITRON [address] [facility] 2022-11-23 2022-11-23 Isabella [facility] 1.2.840.114 [id number] Univers 00:00:00 00:00:00 Hue HEALTH 350.1.13.10 it y of [place] 4.2.7.2.686 Adiren as BORIS?BLEA [id number] [address] MEDICAL OFFICE [facility] 2022-11-21 2022-11-21 Patient [facility] 1.2.840.114 [id number] Univers 00:00:00 00:00:00 Secure Msg Blessing A HEALTH 350.1.13.10 ity of [place] 4.2.7.2.686 Adrien as BORIS?BLEA [id number] [address] OFFICE [facility] 2022-11-21 2022-11-21 Orders [facility] [id number] 00:00:00 00:00:00 Only [facility] 2022-11-21 2022-11-21 Orders [facility] [id number] 00:00:00 00:00:00 Only [facility] 2022-11-12 2022-11-12 Refill [facility] 1.2.840.114 [id number] Univers 00:00:00 00:00:00 Blessing A HEALTH 350.1.13.10 i ty of [place] 4.2.7.2.686 Adrien as BORIS?BLEA [id number] [address] OFFICE [facility] 2022-11-10 2022-11-10 Refill [facility] 1.2.840.114 [id number] Univers 00:00:00 00:00:00 [facility] HEALTH 350.1.13.10 i ty of [place] 4.2.7.2.686 Adrien as BORIS?BLEA [id number] [address] OFFICE [facility] 2022-11-10 2022-11-10 Refill [facility] 1.2.840.114 [id number] Univers 00:00:00 00:00:00 Blessing A HEALTH 350.1.13.10 i ty of [place] 4.2.7.2.686 Adrien as BORIS?BLEA [id number] [address] OFFICE [facility] 2022-10-28 2022-10-28 Emergency [facility] ERT [id number] Univers 10:30:00 18:00:00 CANDIDA ity of [facility] 2022-10-28 2022-10-28 Emergency [facility] 1.2.733.828 [id number] Univers 10:30:00 18:00:00 Candida Weston [place] 350.1.13.10 i ty of [place]2.7.2.[place] [id number] [place] [address] 2022-10-24 2022-10-24 [facility] [id number] Univers 14:40:00 14:40:00 DILIP alonso [facility] 2022-10-15 2022-10-15 [facility] [id number] Univers 14:40:00 14:40:00 DILIP alonso [facility] 2022-10-12 2022-10-12 Refill [facility] 1.2.840.114 [id number] Univers 00:00:00 00:00:00 Blessing A HEALTH 350.1.13.10 i ty of [place] 4.2.7.2.686 Adrien as BORIS?BLEA [phone] [address] 2022-10-12 2022-10-12 Refmarah Y[facility]NEW [facility] 1.2.840.114 [id number] Univers 00:00:00 00:00:00 Blessing A HEALTH 350.1.13.10 i ty of [place] 4.2.7.2.686 Adrien as BORIS?BLEA [id number] [address] 2022-10-12 2022-10-12 Refill [facility] 1.2.840.114 [id number] Univers 00:00:00 00:00:00 Blessing A HEALTH 350.1.13.10 i ty of [place] 4.2.7.2.686 Adrien as BORIS?BLEA [id number] [address] 2022-10-12 2022-10-12 Refmarah BoltonNEW [facility] 1.2.840.114 [id number] Univers 00:00:00 00:00:00 [facility] HEALTH 350.1.13.10 i ty of [place] 4.2.7.2.686 Adrien as BORIS?BLEA [id number] Or dical ANUM 044 [facility] OFFICE [facility] 2022-10-01 2022-10-01 Outpatient [facility] [id number] Univers 14:00:00 14:00:00 RICARDABEAU ity o f [facility] 2022-09-18 2022-09-18 Telephone [facility] 1..749.044 [id number] Univers 00:00:00 00:00:00 [facility] [place] 350.1.13.10 ity of [place] [phone] Or dicelizabeth NAL 059 [facility] 2022 2022 Outpatient [facility] [id number] Univers 09:00:00 09:00:00 DILIP calderóny o f [facility] 2022-09-05 2022-09-05 [facility] 1.2.840.114 [id number] Univers 00:00:00 00:00:00 Blessing A HEALTH 350.1.13.10 i ty of [place] 4.2.7.2.686 Adrien as BORIS?BLEA [phone] Or dicelizabeth ROWAN [address] [facility] 2022-09-03 2022-09-03 Patient [facility] 1.2.840.114 [id number] Univers 00:00:00 00:00:00 Secure Msg Blessing A HEALTH 350.1.13.10 ity of [place] 4.2.7.2.686 Adrien as BORIS?BLEA [id number] Or dical KNEY 044 [facility] OFFICE [facility] 2022-08-31 2022-08-31 Patient [facility] 1.2.840.114 [id number] Univers 00:00:00 00:00:00 Secure Msg Blessing A HEALTH 350.1.13.10 ity of [place] 4.2.7.2.686 Adrien as BORIS?BLEA [id number] [address] MEDICAL OFFICE [facility] 2022-08-31 2022-08-31 Patient [facility] 1.2.840.114 [id number] Univers 00:00:00 00:00:00 Secure Msg Dilip CARLOS 350.1.13.10 ity of [place].2.[place] [id number] [address] 2022-08-31 2022-08-31 Refill [facility] 1.2.840.114 [id number] Univers 00:00:00 00:00:00 Maggie MULTISPEC 350.1.13.10 [facility] 4.2.7.2.[place] [phone] Adore cotton AND JAIRO [address] [place] [address] [facility] 2022-08-31 2022-08-31 Refill [facility] 1.2.840.114 [id number] Univers 00:00:00 00:00:00 Alfred HEALTH 350.1.13.10 it y [facility] 4.2.7.2.686 Adrien as BORIS?BLEA [phone] [address] MEDICAL OFFICE [facility] 2022-08-27 2022-08-27 Telephone [facility] 1.2.935.616 [id number] Univers 00:00:00 00:00:00 Dilip CARLOS 350.1.13.10 ity of [place].7.2.[place] [phone] [address] 2022-08-14 2022-08-14 Patient [facility] 1.2.840.114 [id number] Univers 00:00:00 00:00:00 Secure Msg Blessing A HEALTH 350.1.13.10 ity of [place] 4.2.7.2.686 Adrien as BORIS?BLEA [phone] [address] MEDICAL OFFICE [facility] 2022-08-11 2022-08-11 Emergency ER SONA, [facility] [id number] [place] 05:03:00 06:34:00 TEREZA -[id number] [facility] 2022-07-21 2022-07-21 Emergency ER SHEKHAR, [facility] [id number] [place] 19:47:00 21:28:00 CASSY -[id number] [facility] 2022-07-03 2022-07-03 Outpatient BIBIANA RESENDIZ TXHOP 814 [place] 00:00:00 00:00:00 HN 0221 [facility] 2022-07-02 2022-07-02 Telephone Ihsan [facility] 1.2.840.114 [id number] Univers 00:00:00 00:00:00 Kay Francis MULTISPEC 350.1.13.10 [place] [id number] [facility] AND JAIRO [address] [place] [address] [facility] 2022-06-25 2022-06-25 Refill Doctor [facility] 1.2.840.114 [id number] Univers 00:00:00 00:00:00 Unassigned, HEALTH 350.1.13.10 ity of [place] 4.2.7.2.686 Adrien as BORIS?BLEA [phone] [address] MEDICAL OFFICE [facility] 2022-06-25 2022-06-[address] [facility] 1.2.840.114 [id number] Univers 00:00:00 00:00:00 Blessing A HEALTH 350.1.13.10 i ty of [place] 4.2.7.2.686 Adrien as BORIS?BLEA [phone] [address] OFFICE [facility] 2022-06-25 2022-06-25 Refill Farzana, [facility] 1.2.840.114 [id number] Univers 00:00:00 00:00:00 Blessing A HEALTH 350.1.13.10 i ty of [place] 4.2.7.2.686 Adrien as BORIS?BLEA [phone] [address] OFFICE [facility] 2022-06-25 2022-06-25 [facility] 1.2.840.114 [id number] Univers 00:00:00 00:00:00 Secure Msg Blessing A HEALTH 350.1.13.10 ity of [place] 4.2.7.2.686 Adrien as BORIS?BLEA [phone] Or dical ANUM [address] MEDICAL OFFICE [facility] 2022-05-03 2022-05-03 Orders Doctor ALEM 1.2.840.114 [id number] Univers 00:00:00 00:00:00 Only Unassigned, JOSESITO 350.1.13.10 ity of [place] [facility] 4.2.7.2.686 Adrien as [id number] [address] 2022-04-24 2022-04-24 Patient [facility], [facility] 1.2.840.114 [id number] Univers 00:00:00 00:00:00 Secure Msg Dilip [place] 350.1.13.10 ity of [facility] 4.2.7.2.686 [place] [phone] Or dical NAL 059 [facility] 2022-04-23 2022-04-23 Patient Farzana, [facility] 1.2.840.114 [id number] Univers 00:00:00 00:00:00 Secure Msg Blessing A HEALTH 350.1.13.10 ity of [facility] 4.2.7.2.686 Adrien as BORIS?BLEA [phone] Or dical ANUM 044 [facility] OFFICE [facility] 2022-04-23 2022-04-23 Patient Farzana, [facility] 1.2.840.114 [id number] Univers 00:00:00 00:00:00 Secure Msg Blessing A HEALTH 350.1.13.10 ity of [place] 4.2.7.2.686 Adrien as BORIS?BLEA [phone] Or dical KNEY 044 [facility] OFFICE [facility] 2022-04-22 2022-04-22 Refill Farzana, [facility] 1.2.840.114 [id number] Univers 00:00:00 00:00:00 Blessing A HEALTH 350.1.13.10 i ty of [place] 4.2.7.2.686 Adrien as BORIS?BLEA [phone] [address] OFFICE [facility] 2022-04-08 2022-04-08 Telephone Farzana [facility] 1.2.887.539 [id number] Univers 00:00:00 00:00:00 Blessing Herr [facility] 350.1.13.10 i ty of [place] 4.2.7.2.686 Adrien as BORIS?BLEA [phone] [address] OFFICE [facility] 2022-04-06 2022-04-06 Emergency ER SKYLAR, [facility] [id number] [place] 12:30:00 15:21:00 ADITYA -[id number] [facility] 2022-04-06 2022-04-06 [facility] 1.2.840.114 [id number] Univers 00:00:00 00:00:00 Dilip CARLOS 350.1.13.10 ity of [facility] 4.2.7.2.686 [place] [phone] [address] 2022-04-04 2022-04-04 Patient Ihsan [facility] 1.2.840.114 [id number] Univers 00:00:00 00:00:00 Secure Msfeng Francis MULTISPEC 350.1.13.10 ity of [place].2.7.2.686 [place] CENTER [phone] [facility] lula AND JAIRO [address] [place] [address] [facility] 2022-04-03 2022-04-03 Office Deven [facility] 1.2.840.114 [id number] Univers 14:20:00 14:20:00 Visit Dilip CARLOS 350.1.13.10 ity of [facility] 4.2.7.2.686 [place] [phone] [address] 2022-04-03 2022-04-03 Outpatient R DEVEN [facility] [id number] Univers 14:20:00 14:09:45 DILIP calderóny o f [facility] 2022-04-03 2022-04-03 Refill [facility] 1.2.840.114 [id number] Univers 00:00:00 00:00:00 Kay L MULTISPEC 350.1.13.10 [facility] 4.2.7.2.686 [place] [facility] [phone] [facility] [place] [address] [facility] 2022-04-03 2022-04-03 Orders Doctor ALEM 1.2.840.114 [id number] Univers 00:00:00 00:00:00 Only Unassigned, JOSESITO 350.1.13.10 [facility] 4.2.7.2.686 Adrien as [phone] [facility] [address] 2022-03-19 2022-03-19 Outpatient R DEVEN, [facility] [id number] Univers 09:20:00 09:20:00 General acute hospital 2022-03-19 2022-03-19 Outpatient R DEVEN, [facility] [id number] Univers 09:20:00 09:20:00 General acute hospital 2022-03-19 2022-03-19 Outpatient R DEVEN, [facility] [id number] Univers 09:20:00 09:20:00 General acute hospital 2022-03-19 2022-03-19 Outpatient R DEVEN, [facility] [id number] Univers 09:20:00 09:20:00 General acute hospital 2022-03-19 2022-03-19 Outpatient R DEVEN, [facility] [id number] Univers 09:20:00 09:20:00 General acute hospital 2022-02-15 2022-02-15 Telephone Farzana, [facility] 1.2.130.770 [id number] Univers 00:00:00 00:00:00 Blessing A HEALTH 350.1.13.10 i ty of [place] 4.2.7.2.686 Adrien as BORIS?BLEA [phone] Or susanna [address] MEDICAL OFFICE BUILDING 2022-02-14 2022-02-14 Outpatient FERLONNIE_MELISSA [facility] [place] [id number] [place] 00:00:00 00:00:00 HN 1005 [facility] 2022-02-14 2022-02-14 Patient [facility] 1.2.840.114 [id number] Univers 00:00:00 00:00:00 Secure Msg Blessing A HEALTH 350.1.13.10 ity of [place] 4.2.7.2.686 Adrien as BORIS?BLEA [phone] Or dicne KNEY [address] [facility] 2022-02-13 2022-02-13 Outpatient [facility] [id number] Univers 12:37:39 23:59:00 BLESSING ity of [facility] 2022-02-13 2022-02-[address] [facility] 1.2.840.114 [id number] Univers 12:37:39 23:59:00 Encounter Blessing [place] 350.1.13.10 ity of [facility] 4.2.7.2.686 [place] [phone] [facility] [address] 2022-02-08 2022-02-09 Inpatient ER [facility] [id number] [place] 06:37:00 18:02:00 [id number] 2022-02-09 2022-02-09 Refmarah [facility] 1.2.840.114 [id number] Univers 00:00:00 00:00:00 Dilip CARLOS 350.1.13.10 ity of [facility] 4.2.7.2.686 [place] [phone] Or dical NAL 059 [facility] 2022-02-08 2022-02-[address] [facility] 1.2.840.114 [id number] Univers 00:00:00 00:00:00 Secure Msg Jacqui [place] 350.1.13.10 ity of [place] 4.2.7.2.686 [place] [phone] Or dical NAL 044 [facility] 2022-02-08 2022-02-08 Patient [facility] 1.2.840.114 [id number] Univers 00:00:00 00:00:00 Secure Msg Blessing A HEALTH 350.1.13.10 ity of [place] 4.2.7.2.686 Adrien as BORIS?BLEA [phone] [address] OFFICE [facility] 2022-02-05 2022-02-05 Telephone [facility] 1.2.165.832 [id number] Univers 00:00:00 00:00:00 Blessing Herr HEALTH 350.1.13.10 i ty of [place] 4.2.7.2.686 Adrien as BORIS?BLEA [id number] [address] OFFICE [facility] 2022-02-02 2022-02-02 Watch [employer], Ang - Db [facility] 1.2.840.1 14 [id number] Univers 16:00:00 16:15:00 Visit Farzana Blessing Herr HEALTH 350.1.13.10 ity of [facility] 4.2.7.2.686 Adrien as BORIS?BLEA [phone] [address] OFFICE [facility] 2022-02-02 2022-02-02 Outpatient R [facility] [id number] Univers 15:00:00 15:49:47 BLESSING ity of [facility] 2022-02-02 2022-02-02 [facility] 1.2.840.114 [id number] Univers 15:00:00 15:49:47 Visit Blessing Herr HEALTH 350.1.13.10 i ty of [place] 4.2.7.2.686 Adrien as BORIS?BLEA [phone] [address] OFFICE [facility] 2022-02-02 2022-02-02 Outpatient R [facility] [id number] Univers 14:30:00 14:30:00 BLESSING ity of [facility] 2022-01-19 2022-01-19 Orders Doctor FERRARA 1.2.840.114 [id number] Univers 00:00:00 00:00:00 Only Unassigned, JOSESITO 350.1.13.10 ity of [place] [facility] 4.2.7.2.686 Adrien as [phone] [address] 2022-01-16 2022-01-16 Isabella Bolton [facility] 1.2.840.114 [id number] Univers 00:00:00 00:00:00 Dilip TERRANCE 350.1.13.10 ity of [place].2.7.2.686 [place] [phone] [facility] 059 [facility] 2022-01-08 2022-01-08 ALEM Hernandez 1.2.840.114 [id number] Univers 00:00:00 00:00:00 Management Ashley A J[place]ESIT[place] 350.1.13.10 ity of [facility] 4.2.7.2.686 Adrien as [phone] [place] [address]60[address] 2022-01-06 2022-01-07 [facility] [id number] [place] 14:59:00 16:35:00 Mariola -[id number] [facility] 2022-01-05 2022-01-05 Emergency ER Kelly [facility] [id number] [place] 21:17:00 22:57:00 Yissel -[id number] [facility] 2022-01-04 2022-01-04 Patient [place], [facility] 1.2.840.114 [id number] Univers 00:00:00 00:00:00 Secure Msg Jacqui Beaver HEALTH 350.1.13.10 ity of [place] 4.2.7.2.686 Adrien as BORIS?BLEA [id number] [address] MEDICAL OFFICE [facility] 2022-01-04 2022-01-04 Patient Farzana, [facility] 1.2.840.114 [id number] Univers 00:00:00 00:00:00 Secure Msg Blessing A HEALTH 350.1.13.10 ity of [place] 4.2.7.2.686 Adrien as BORIS?BLEA [phone] [facility] [address] MEDICAL OFFICE BUILDING 2022-01-02 2022-01-02 Refill Farzana, [facility] 1.2.840.114 [id number] Univers 00:00:00 00:00:00 Blessing A HEALTH 350.1.13.10 i ty of [place] 4.2.7.2.686 Adrien as BORIS?BLEA [id number] [address] OFFICE [facility] 2022-01-01 2022-01-01 Refill [facility] 1.2.840.114 [id number] Univers 00:00:00 00:00:00 Blessing A HEALTH 350.1.13.10 i ty of [place] 4.2.7.2.686 Adrien as BORIS?BLEA [id number] [address] OFFICE [facility] 2021-12-29 2021-12-29 Refmarah [facility] 1.2.840.114 [id number] Univers 00:00:00 00:00:00 Qiangjun [place] 350.1.13.10 ity of [place] 4.2.7.2.686 [place] [id number] [address] 2021-12-25 2021-12-25 Orders Doctor ALEM 1.2.840.114 [id number] Univers 00:00:00 00:00:00 Only Unassigned, JOSESIT[place] 350.1.13.10 ity of [place] [facility] 4.2.7.2.686 Adrien as [id number] [address] 2021-12-06 2021-12-06 Outpatient R FARZANA [facility] [id number] Univers 11:30:00 11:30:00 BLESSING ity of [facility] 2021-12-01 2021-12-01 Refill [facility] 1.2.840.114 [id number] Univers 00:00:00 00:00:00 Blessing A HEALTH 350.1.13.10 i ty of [place] 4.2.7.2.686 Adrien as BORIS?BLEA [id number] [address] OFFICE [facility] 2021-11-30 2021-11-30 Refmarah [facility]NEW [facility] 1.2.840.114 [id number] Univers 00:00:00 00:00:00 Qiangjun [place] 350.1.13.10 ity of [place] 4.2.7.2.686 [place] [phone] [place] 394489 [facility] 2021-11-30 2021-11-30 Telephone Farzana, [facility] 1.2.809.564 [id number] Univers 00:00:00 00:00:00 Blessing A HEALTH 350.1.13.10 i ty of [place] 4.2.7.2.686 Adrien as BORIS?BLEA [phone] [address] 2021-11-17 2021-11-17 [facility] 1.2.803.756 [id number] [id number] Univers 00:00:00 00:00:00 Blessing A HEALTH 350.1.13.10 i ty of [place] 4.2.7.2.686 Adrien as BORIS?BLEA [phone] [address] 2021-11-17 2021-11-17 Telephone [facility] 1.2.840.114 9 [id number] Univers 00:00:00 00:00:00 Jany HEALTH 350.1.13.10 it y of [place] 4.2.7.2.686 Adrien as BORIS?BLEA [id number] [address] 2021-11-14 2021-11-14 Patient [facility] 1.2.840.114 [id number] Univers 00:00:00 00:00:00 Secure Msg Jacqui M HEALTH 350.1.13.10 ity of [place] 4.2.7.2.686 Adrien as BORIS?BLEA [id number] [address] OFFICE [facility] 2021-11-14 2021-11-14 Patient [facility] 1.2.840.114 [id number] Univers 00:00:00 00:00:00 Secure Msg Jacqui M HEALTH 350.1.13.10 ity of [place] 4.2.7.2.686 Adrien as BORIS?BLEA [id number] [address] 2021-11-14 2021-11-14 Patient [facility] 1.2.840.114 [id number] Univers 00:00:00 00:00:00 Secure Msg Blessing A HEALTH 350.1.13.10 ity of [facility] 4.2.7.2.686 Adrien as BORIS?BLEA [phone] [address] MEDICAL OFFICE [facility] 2021-11-08 2021-11-08 Emergency X [facility] ERT [id number] Univers 07:59:00 08:59:00 BETTY donnelly [facility] 2021-11-08 2021-11-08 Emergency [facility] 1.2.553.136 [id number] Univers 07:59:00 08:59:00 Betty CARLOS 350.1.13.10 i ty of [place] 4.2.7.2.686 [place] [facility] [id number] [address] 2021-11-08 2021-11-08 Telephone [facility] 1..528.176 [id number] Univers 00:00:00 00:00:00 Blessing A HEALTH 350.1.13.10 i ty of [place] 4.2.7.2.686 Adrien as BORIS?BLEA [id number] [address] OFFICE [facility] 2021-11-07 2021-11-07 Outpatient [facility] [id number] Univers 14:30:00 14:30:00 KAY alonso [facility] 2021-11-07 2021-11-07 Outpatient R IHSAN, [facility] [id number] Univers 14:30:00 14:30:00 KAY alonso [facility] 2021-11-07 2021-11-07 Outpatient R IHSAN [facility] [id number] Univers 14:30:00 14:30:00 KAY alonso [facility] 2021-11-01 2021-11-01 Outpatient R CARLO, [facility] [id number] Univers 12:30:00 12:30:00 KORY [facility] 2021-11-01 2021-11-01 Telephone [facility] 1..809.465 [id number] Univers 00:00:00 00:00:00 Blessing A HEALTH 350.1.13.10 i ty of [facility] 4.2.7.2.686 Adrien as BORIS?BLEA [id number] [address] OFFICE [facility] 2021-10-25 2021-10-25 Outpatient R FARZANA [facility] [id number] Univers 09:30:00 09:48:15 BLESSING donnelly [facility] 2021-10-25 2021-10-25 Office [facility] 1.2.840.114 [id number] Univers 09:30:00 09:48:15 Visit Blessing Herr [facility] 350.1.13.10 i ty of [place] 4.2.7.2.686 Adrien as BORIS?BLEA [id number] [address] OFFICE [facility] 2021-10-19 2021-10-19 Telephone [facility] 1.2.394.729 [id number] Univers 00:00:00 00:00:00 Qiarichbeau [place] 350.1.13.10 ity of [place] 4.2.7.2.[place] [phone] Or dicne NAL 059 [facility] 2021-10-18 2021-10-18 Patient [facility] 1.2.840.114 [id number] Univers 00:00:00 00:00:00 Secure Msg Jacqui Beaver [facility] 350.1.13.10 ity of [place] 4.2.7.2.686 Adrien as BORIS?BLEA [id number] [address] 2021-09-28 2021-09-28 Outpatient R JAMES [facility] [id number] Univers 15:30:00 15:30:00 SOHA donnelly [facility] 2021-09-28 2021-09-28 Outpatient R JAMES [facility] [id number] Univers 15:30:00 15:30:00 SOHA joie [facility] 2021-09-27 2021-09-27 Outpatient R DEANN [facility] [id number] Univers 10:40:00 10:40:00 PRINCESS [facility] 2021-09-27 2021-09-27 Telephone [facility] 1.2.732.910 [id number] Univers 00:00:00 00:00:00 Blessing Herr HEALTH 350.1.13.10 i ty of [facility] 4.2.7.2.686 Adrien as BORIS?BLEA [phone] [facility] [address] MEDICAL OFFICE BUILDING 2021-09-26 2021-09-26 Outpatient R BRENDEN [facility] [id number] Univers 14:00:00 14:00:00 [facility] 2021-09-21 2021-09-21 [facility] BLADIMIR Crespo ..840.114 9 [id number] Univers 15:19:00 23:59:00 Encounter Cass Walls 350.1.13.10 ity of [facility] 4.2.7.2.686 Adrien as [id number] [address] 2021-09-21 2021-09-21 Outpatient [facility] ACO [id number] Univers 00:00:00 23:59:00 CASS [facility] 2021-09-20 2021-09-20 Watch [employer], Ang - Db [facility] 1.2.840.1 14 [id number] Univers 11:00:00 11:15:00 Visit Blessing Yanes HEALTH 350.1.13.10 ity of [place] 4.2.7.2.686 Adrien as BORIS?BLEA [phone] [facility] [address] MEDICAL OFFICE [facility] 2021-09-20 2021-09-20 Outpatient R FARZANA [facility] [id number] Univers 11:00:00 11:00:00 [facility] 2021-09-20 2021-09-20 Office [facility] 1.2.840.114 [id number] Univers 10:30:00 11:00:00 Visit Blessing Herr HEALTH 350.1.13.10 i ty of [place] 4.2.7.2.686 Adrien as BORIS?BLEA [id number] [address] MEDICAL OFFICE [facility] 2021-09-20 2021-09-20 Outpatient [facility] [id number] Univers 10:30:00 10:30:00 BLESSING ity of [facility] 2021-09-20 2021-09-20 Telephone [facility] 1.2.288.184 [id number] Univers 00:00:00 00:00:00 Blessing Herr HEALTH 350.1.13.10 i ty of [facility] 4.2.7.2.686 Adrien as BORIS?BLEA [id number] [address] OFFICE [facility] 2021-09-18 2021-09-18 Telephone [facility] 1.2.263.509 [id number] Univers 00:00:00 00:00:00 Dilip [place] 350.1.13.10 ity of [facility] 4.2.7.2.686 [place] [id number] [address] 2021-09-15 2021-09-[address] [facility] 1.2.840.114 [id number] Univers 00:00:00 00:00:00 Secure Msg Jacqui Beaver HEALTH 350.1.13.10 ity of [place] 4.2.7.2.686 Adrien as BORIS?BLEA [id number] [address] 2021-09-14 2021-09-14 Outpatient R CARLO [facility] [id number] Univers 13:42:35 23:59:00 KORY itjoie [facility] 2021-09-14 2021-09-14 Outpatient R DEVEN [facility] [id number] Univers 15:00:00 15:27:51 DILIP donnelly o f [facility] 2021-09-14 2021-09-14 Office [facility] 1.2.840.114 [id number] Univers 15:00:00 15:27:51 Visit Dilip [place] 350.1.13.10 ity of [place] 4.2.7.2.686 [place] [id number] [address] 2021-09-14 2021-09-14 Outpatient R DEVEN [facility] [id number] Univers 15:00:00 15:00:00 DILIP ramirez [facility] 2021-09-14 2021-09-14 Outpatient R CARLO, [facility] [id number] Univers 14:00:00 14:00:00 KORY [facility] 2021-09-14 2021-09-14 Watch [employer], Adc Respiratory [facility] 1.2.840.114 [id number] Univers 12:30:00 12:45:00 Visit Thanh Gay 350.1.13. 10 ity storm [place] 4.2.7.2.686 [facility] [id number] [facility] [address] 2021-09-14 2021-09-14 Outpatient R RICCARDO [facility] [id number] Univers 12:30:00 12:30:00 THANH joie [facility] 2021 2021 Outpatient R DEANN, [facility] [id number] Univers 13:40:00 13:40:00 PRINCESS [facility] 2021-09-06 2021-09-06 Telephone [facility] 1.2.483.505 [id number] Univers 00:00:00 00:00:00 Blessing MONTEIRO 350.1.13.10 i [place] 4.2.7.2.686 [facility] as BORIS?BLEA [id number] Or ana paula[address] MEDICAL OFFICE BUILDING 2021-09-05 2021-09-05 Outpatient R IHSAN [facility] [id number] [id number] Univers 13:30:00 15:06:45 KAY ramirez [facility] 2021-09-05 2021-09-05 Office [facility] 1.2.840.114 [id number] Univers 13:30:00 15:06:45 Visit Kay BARR 350.1.13.10 ity storm MARI 4.2.7.2.686 [facility] [phone] [facility] [place] [address] [facility] 2021-09-05 2021-09-05 Outpatient [facility] [id number] Univers 13:30:00 13:30:00 KAY ity o [facility] 2021-09-05 2021-09-05 Outpatient R IHSAN [facility] [id number] Univers 13:30:00 13:30:00 KAY alnoso [facility] 2021-09-04 2021-09-04 Office MELIZA Morales 1.2.681.874 [id number] Univers 08:00:00 08:53:32 Visit Arely Y 350.1.13.10 i ty of [facility] 4.2.7.2.686 Adrien as BANK [phone] [facility] BLDG. [address] 2021-09-04 2021-09-04 Outpatient R CARMEN [facility] [id number] Univers 08:00:00 08:53:32 ARELYSILVIA alonso [facility] 2021-09-04 2021-09-04 Outpatient R CARMEN [facility] [id number] Univers 08:00:00 08:53:32 ARELY cony alonso [facility] 2021-09-04 2021-09-04 Outpatient R CARMEN, [facility] [id number] Univers 08:00:00 08:00:00 ARELY cony alonso [facility] 2021-09-04 2021-09-04 Outpatient R CARMEN, [facility] [id number] Univers 08:00:00 08:00:00 ARELYSILVIA alonso [facility] 2021-08-31 2021-08-31 [facility] [id number] Univers 08:07:43 23:59:00 Encounter Blessing CARLOS [id number] ity [facility] [id number] [facility] [id number] [facility] [address] 2021-08-31 2021-08-31 [facility] [id number] Univers 08:06:25 08:06:25 Encounter Sindy CARLOS [id number] ity [facility] [id number] [facility] s ARGYLE [id number] [facility] [address] 2021-08-31 2021-08-31 [facility] [id number] Univers 08:06:11 08:06:11 Encounter Sindyelvia CARLOS [id number] ity of [place] [id number] [facility] [id number] [facility] [address] 2021-08-31 2021-08-31 Outpatient R SINDY ONEILL [facility] [id number] Univers 08:06:11 08:06:11 SINDY ONEILL [facility] 2021-08-31 2021-08-31 Outpatient R SINDY ONEILL [facility] [id number] Univers 08:06:11 08:06:11 SINDY ONEILL [facility] 2021-08-31 2021-08-31 [facility] [id number] Univers 08:04:49 08:05:00 Encounter Sindy CARLOS [id number] ity of [place] [id number] [facility] [id number] [place] [id number] [place] 2021-08-31 2021-08-31 Outpatient R SINDY ONEILL [facility] [id number] Univers 08:04:32 08:05:00 SINDY ONEILL [facility] 2021-08-31 2021-08-31 [facility] [id number] Univers 08:04:32 08:05:00 Encounter Sindy CARLOS [id number] ity of [place] [id number] [facility] [id number] [place] [id number] [place] 2021-08-31 2021-08-31 [facility] [facility] [id number] Univers 00:00:00 00:00:00 SINDY ONEILL [facility] 2021-08-31 2021-08-31 Outpatient R FARZANA [facility] [id number] Univers 00:00:00 00:00:00 BLESSING donnelly [facility] 2021-08-22 2021-08-22 Orders Doctor ALEM 1.2.840.114 [id number] Univers 00:00:00 00:00:00 Only Unassigned, JOSESITO 350.1.13.10 ity of [place] [facility] 4.2.7.2.686 Adrien as [phone] [address] 2021-08-21 2021-08-21 Outpatient R MATOS, [facility] [id number] Univers 13:00:00 14:01:28 KORY ity of [facility] 2021-08-21 2021-08-21 Office Matos, [facility] 1.2.840.114 [id number] Univers 13:00:00 14:01:28 Visit Kory HEALTH 350.1.13.10 it y of [place] 4.2.7.2.686 [place] a FARIA [phone] [address] OFFICE BUILDING 2021-08-21 2021-08-21 Outpatient R CARLO, [facility] [id number] Univers 13:00:00 14:01:28 KORY ity of [facility] 2021-08-21 2021-08-21 Office Matos, [facility] 1.2.840.114 [id number] Univers 13:00:00 14:01:28 Visit Kory HEALTH 350.1.13.10 it y of [place] 4.2.7.2.686 [place] a FARIA [phone] [address] OFFICE BUILDING 2021-08-21 2021-08-21 Telephone [facility] 1.2.772.213 [id number] Univers 00:00:00 00:00:00 Blessing A HEALTH 350.1.13.10 i ty of [place] 4.2.7.2.686 Adrien as BORIS?BLEA [id number] [address] OFFICE BUILDING 2021-08-21 2021-08-21 Telephone [facility] 1.2.801.359 [id number] Univers 00:00:00 00:00:00 Blessing A HEALTH 350.1.13.10 i ty of [place] 4.2.7.2.686 Adrien as BORIS?BLEA [id number] [address] OFFICE [facility] 2021-08-21 2021-08-21 Telephone Matos, [facility] 1.2.336.727 [id number] Univers 00:00:00 00:00:00 Kory HEALTH 350.1.13.10 it y of [place] 4.2.7.2.686 [place] a FARIA [phone] [address] OFFICE [facility] 2021-08-21 2021-08-21 Telephone Matos, [facility] 1.2.062.358 [id number] Univers 00:00:00 00:00:00 Kory HEALTH 350.1.13.10 it y of [place] 4.2.7.2.686 [place] a FARIA [id number] [address] OFFICE [facility] 2021-08-21 2021-08-21 Telephone Farzana, [facility] 1.2.026.326 [id number] Univers 00:00:00 00:00:00 Blessing A HEALTH 350.1.13.10 i ty of [place] 4.2.7.2.686 Adrien as BORIS?BLEA [phone] [address] OFFICE [facility] 2021-08-21 2021-08-21 Telephone Bill, [facility] 1.2.786.746 [id number] Univers 00:00:00 00:00:00 Alfred HEALTH 350.1.13.10 it y of [place] 4.2.7.2.686 Adrien as BORIS?BLEA [id number] [address] OFFICE [facility] 2021-08-21 2021-08-21 Patient Doctor [facility] 1.2.840.114 [id number] Univers 00:00:00 00:00:00 Secure Msg Unassigned, HEALTH 350.1.13.10 ity of [place] 4.2.7.2.686 Adrien as BORIS?BLEA [phone] [address] OFFICE [facility] 2021-08-18 2021-08-18 Outpatient R CARMEN [facility] [id number] Univers 09:15:00 09:15:00 ARELY ramirez [facility] 2021-08-18 2021-08-18 [facility] [id number] Univers 09:15:00 09:15:00 ARELY stephanejoie o f [facility] 2021-08-18 2021-08-18 Telephone [facility] 1.2.734.224 [id number] Univers 00:00:00 00:00:00 Blessing A HEALTH 350.1.13.10 i ty of [place] 4.2.7.2.686 Adrien as BORIS?BLEA [id number] [address] 2021-08-17 2021-08-17 Outpatient R WADE [facility] [id number] Univers 13:00:00 13:00:00 WADE [facility] 2021-08-17 2021-08-17 Outpatient R WADE [facility] [id number] Univers 13:00:00 13:00:00 WADE [facility] 2021-08-17 2021-08-17 Outpatient R WADE [facility] [id number] Univers 13:00:00 13:00:00 WADE [facility] 2021-08-17 2021-08-17 Telephone [facility] 1.2.343.648 [id number] Univers 00:00:00 00:00:00 Alfred HEALTH 350.1.13.10 it y of [place] 4.2.7.2.686 Adrien as BORIS?BLEA [phone] [address] 2021-08-17 2021-08-17 Refill [facility] 1.2.840.114 [id number] Univers 00:00:00 00:00:00 Blessing A HEALTH 350.1.13.10 i ty of [place] 4.2.7.2.686 Adrien as BORIS?BLEA [id number] [address] 2021-08-16 2021-08-16 [facility] [id number] Univers 12:00:00 12:00:00 [facility] 2021-08-16 2021-08-16 Outpatient R CARLO [facility] [id number] Univers 12:00:00 12:00:00 [facility] 2021-08-16 2021-08-16 Outpatient R CARLO [facility] [id number] Univers 12:00:00 12:00:00 [facility] 2021-08-16 2021-08-16 Telephone [facility] 1.2.840.114 [id number] Univers 00:00:00 00:00:00 Soha CARLOS 350.1.13.10 i ty of [place].2.7.2.[place] [phone] Or ana paula[address] 2021-08-14 2021-08-14 Outpatient R SINDY ONEILL [facility] [id number] Univers 15:18:48 23:59:00 SINDY ONEILL [facility] 2021-08-14 2021-08-14 Outpatient R SINDY ONEILL [facility] [id number] Univers 15:18:48 23:59:00 SINDY ONEILL [facility] 2021-08-10 2021-08-10 Outpatient R JAMES [facility] [id number] Univers 15:00:00 15:45:32 SOHA [facility] 2021-08-10 2021-08-10 Office [facility] 1.2.574.044 [id number] Univers 15:00:00 15:45:32 Visit Shoagladys CARLOS 350.1.13.10 i ty of [place].7.[place] [phone] [address] 2021-08-10 2021-08-10 Outpatient R JAMES [facility] [id number] Univers 15:00:00 15:45:32 SOHA donnelly [facility] 2021-08-10 2021-08-10 Outpatient R JAMES [facility] [id number] Univers 15:00:00 15:45:32 SOHA joie [facility] 2021-08-10 2021-08-10 Outpatient R JAMES [facility] [id number] Univers 15:00:00 15:00:00 SOHA donnelly [facility] 2021-08-09 2021-08-09 Refmarah Bush [facility] 1.2.840.114 [id number] Univers 00:00:00 00:00:00 Kay Francis MULTISPEC 350.1.13.10 ity of [place].2.[place] [phone] [address] DIABETES CLINIC 2021-08-09 2021-08-09 Isablela Bush [facility] 1.2.840.114 [id number] Univers 00:00:00 00:00:00 Kay DARBYPEC 350.1.13.10 it[place] of [place].2.[place] [phone] [facility] AND [address] DIABETES CLINIC 2021-08-09 2021-08-09 Refill [facility] 1.2.840.114 [id number] Univers 00:00:00 00:00:00 Unassigned, PRIMARY 350.1.13.10 ity of [place] [id number] [address] 2021-08-04 2021-08-04 Patient Farzana [facility] 1.2.840.114 [id number] Univers 00:00:00 00:00:00 Secure Msg Blessing A HEALTH 350.1.13.10 ity of [place] 4.2.7.2.686 Adrien as BORIS?BLEA [phone] [address] MEDICAL OFFICE BUILDING 2021-08-04 2021-08-04 Patient Farzana, [facility] 1.2.840.114 [id number] Univers 00:00:00 00:00:00 Secure Msg Blessing A HEALTH 350.1.13.10 ity of [place] 4.2.7.2.686 Adrien as BORIS?BLEA [phone] [address] MEDICAL OFFICE BUILDING 2021-08-02 2021-08-02 Office MAYTE OneillIT 1.2.445.335 [id number] Univers 11:30:00 11:30:00 Visit Sindy MONTEIRO 350.1.13.10 i ty of [facility] 4.2.7.2.686 [facility] [phone] [facility] [address] 2021-08-02 2021-08-02 Outpatient R PETRONA ONEILLNITA [facility] [id number] Univers 11:30:00 11:24:07 SINDY ONEILL [facility] 2021-07-28 2021-07-28 [facility] [id number] Univers 13:00:00 13:00:00 SINDY ONEILL [facility] 2021-07-26 2021-07-26 Out[facility] [id number] Univers 15:20:22 23:59:00 BLESSING [facility] 2021-07-26 2021-07-26 [facility] 1.2.840.114 [id number] Univers 15:00:00 23:59:00 Encounter Blessing CARLOS 350.1.13.10 ity [facility] [place]2.7.[place] [id number] [facility] [address] 2021-07-21 2021-07-21 Outpatient [facility] [id number] Univers 14:30:00 15:16:04 BLESSING [facility] 2021-07-19 2021-07-19 Outpatient [facility] [id number] Univers 09:00:00 09:00:00 BLESSING [facility] 2021-07-14 2021-07-14 [facility] [id number] Univers 10:00:00 11:07:33 BLESSING [facility] 2021-07-14 2021-07-14 Orders Doctor FERRARA 1.2.840.114 [id number] Univers 00:00:00 00:00:00 Only Unassigned, JOSESITO 350.1.13.[address] [facility] 4.2.7.2.686 Adrien as [phone] [address] 2021-07-12 2021-07-12 Outpatient R JERMAINE [facility] [id number] Univers 10:00:00 10:00:00 JUVE itjoie of [facility] 2021-02-12 2021-02-12 Outpatient PRIV PRIV [id number] 1-2 [facility] 00:00:00 00:00:00 [id number] Medica l 2021-02-12 2021-02-12 Outpatient PRIV PRIV [id number] 1-2 [facility] 00:00:00 00:00:00 [id number] Medica l 2020-12-06 2020-12-06 Outpatient PERLA BLOCK [id number] Perla 10:45:00 10:45:00 ELLIOT obrien 2020-07-30 2020-07-30 Laboratory Lab, [facility] Fam Pob I [facility] 1.2. 840.114 [id number] Univers 16:14:44 16:34:44 [facility] 350.1.13.10 ity [facility] 4.2.7.2.686 Adrien as Professio [phone] Me dical [address] Office Building One 2020-07-30 2020-07-30 Outpatient R PALOMO [facility] [id number] Univers 16:00:00 16:00:00 [facility] 2020-07-28 2020-07-28 Patient Abdon [facility] 1.2.840.114 [id number] Univers 00:00:00 00:00:00 Outreach Joel PRIMARY 350.1.13.[address] [facility] [place].2.7.2.[place] [phone] Me dical [address] [place] [address] 2020-05-04 2020-05-04 Emergency ER HAFSA SAEED [facility] [id number] [place] 16:03:00 18:07:00 -[id number] [facility] 2020-05-01 2020-05-01 Emergency ER RUPERT [facility] [id number] [place] 14:12:00 18:16:00 BAO -[id number] [facility] 2020-04-20 2020-04-21 Emergency ER , [facility] [id number] 61 [place] 22:53:00 00:07:00 WAS -[id number] [facility] 2020-04-04 2020-04-04 [facility] 1.2.840.114 [id number] Univers 00:00:00 00:00:00 Leandro [place] PRIMARY 350.1.13.10 ity of CARE 4.2.7.2.686 Maritza weston PAVILLION [id number] [address] 2020-04-04 2020-04-04 [facility] 1.2.840.114 [id number] 00:00:00 00:00:00 Leandro Braeden PRIMARY 350.1.13.10 CARE 4.2.7.2.686 PAVILLION [id number] 389 2020-03-18 2020-03-18 Outpatient FERGUSON_JO MEHOP MEHOP 814 [place] 00:00:00 00:00:00 HN 1106 da [facility] 2020-03-14 2020-03-14 Outpatient FERGUSON_JO MEHOP MEHOP 814 [place] 04:45:00 04:45:00 HN 1102 [facility] 2020-02-29 2020-02-29 Outpatient Sofia MORALES, [facility] [id number] Univers 08:45:00 08:45:00 ARELY ramirez [facility] 2020-02-26 2020-02-26 Emergency ER DARLIN, EDDS [facility] [id number] [place] 10:15:00 12:20:00 -[id number] [facility] 2020-02-26 2020-02-26 Outpatient FERGUSON_JO MEHOP MEHOP 814 [place] 09:48:00 09:48:00 HN 1016 da [facility] 2020-02-25 2020-02-25 Outpatient FERGUSON_JO MEHOP MEHOP 814 [place] 01:22:00 01:22:00 HN 1015 da [facility] 2020-02-19 2020-02-20 Emergency ER AVALOS, [facility] [id number] [place] 21:17:00 03:38:00 DOMINGO -[id number] [facility] 2020-02-17 2020-02-17 Outpatient R BELIA METZ [facility] [id number] Univers 11:00:00 11:00:00 ity of [facility] 2020-02-10 2020-02-10 Emergency ER OWO, TOKS [facility] [id number] [place] 16:26:00 19:59:00 -[id number] [facility] 2019-12-31 2019-12-31 Emergency ER OWO, TOKS [facility] [id number] [place] 17:19:00 19:23:00 -[id number] [facility] 2019-11-26 2019-11-26 Emergency ER SAIFI, [facility] [id number] [place] 09:27:00 11:17:00 LORENE -[id number] [facility] 2019-11-20 2019-11-20 Telephone [facility] 1.2.689.791 [id number] [facility] 00:00:00 00:00:00 Leandro Braeden PRIMARY 350.1.13.10 it[place] of [place]2.7.2.[place] [phone] [address] 2019-11-20 2019-11-20 Telephone [facility] 1.2.914.667 [id number] 00:00:00 00:00:00 Leandro Deras PRIMARY 350.1.13.10 CARE 4.2.7.2.686 PAVILLION [id number] 389 2019-11-13 2019-11-13 Telephone [facility] 1.2.864.179 [id number] [facility] 00:00:00 00:00:00 Leandro Deras PRIMARY 350.1.13.10 it[place] of [place] 4[place]2.[place].2.[place] [id number] [address] 2019-11-13 2019-11-13 Telephone [facility] 1.2.990.295 [id number] 00:00:00 00:00:00 Leandro Deras PRIMARY 350.1.13.10 CARE 4.2.7.2.686 PAVILLION [id number] 389 2019-10-28 2019-10-28 Outpatient R UNKNOWN, [facility] [id number] Univers 10:40:00 10:40:00 ATTENDING ity of [facility] 2019-09-29 2019-09-29 Patient Doctor [facility] 1.2.840.114 [id number] Univers 00:00:00 00:00:00 Secure Msg Unassigned, PRIMARY 350.1.13.10 ity of [place] 4.2.7.2.[place] [id number] Or dical [address] 2019-09-29 2019-09-29 Patient Doctor [facility] 1.2.840.114 [id number] 00:00:00 00:00:00 Secure Msg Unassigned, PRIMARY 350.1.13.10 [place] CARE 4.2.7.2.686 PAVILLION [id number] [facility] 2019-09-15 2019-09-15 Telephone [facility] 1.2.782.360 [id number] [facility] 00:00:00 00:00:00 Leandro Deras PRIMARY 350.1.13.10 ity of [place] 4.2.7.2.[place] [id number] Or dicne [address] 2019-09-15 2019-09-15 Telephone [facility] 1.2.862.726 [id number] 00:00:00 00:00:00 Leandro Deras PRIMARY 350.1.13.10 CARE 4.2.7.2.686 PAVILLION [id number] 389 2019-09-10 2019-09-10 Watch [employer] Vtc-Lab [facility] 1.2.840.114 [id number] [facility] 12:34:34 12:44:34 Visit Samir Conner MULTISPEC 350.1.13.10 ity of [place].2.[place] [id number] [facility] GILL [address] [place] [address] DIABETES CLINIC 2019-09-10 2019-09-10 Watch [employer] Vtc-Lab [facility] 1.2.840.114 [id number] 12:34:34 12:44:34 Visit MULTISPEC 350.1.13.10 [place] 4.2.7.2.686 CENTER [id number] AND JAIRO [facility] 2019-09-10 2019-09-10 Outpatient R SAMIR CONNER [facility] [id number] Univers 12:40:00 12:40:00 ity [facility] 2019-08-18 2019-08-18 Patient Jesse [facility] 1.2.840.114 [id number] Univers 00:00:00 00:00:00 Secure Msg Leandro Deras PRIMARY 350.1.13.10 ity of [place] 4.2.7.2.[place] [id number] [facility] [address] 2019-08-18 2019-08-18 Patient Jesse [facility] 1.2.840.114 [id number] 00:00:00 00:00:00 Secure Msg Leandro Deras PRIMARY 350.1.13.10 CARE 4.2.7.2.686 PAVILLION [id number] 390 2019-08-17 2019-08-17 Patient Doctor [facility] 1.2.840.114 [id number] Univers 00:00:00 00:00:00 Secure Msg Unassigned, PRIMARY 350.1.13.10 ity of [place] 4.2.7.2.[place] [id number] [facility] [address] 2019-08-17 2019-08-17 Patient Doctor [facility] 1.2.840.114 [id number] 00:00:00 00:00:00 Secure Msg Unassigned, PRIMARY 350.1.13.10 [place] CARE 4.2.7.2.686 PAVILLION [id number] 389 2019-08-14 2019-08-14 Outpatient R UNKNOWN, [facility] [id number] Univers 12:10:00 12:10:00 ATTENDING ity of [facility] 2019-08-14 2019-08-14 Watch [employer] Pcp-Lab [facility] 1.2.840.114 [id number] Univers 11:02:02 11:12:02 Visit Unknown, Attending PRIMARY 350.1.13.10 ity of Samir Conner CARE 4.2.7.2.686 T excorina PAVILLION [id number] Or dicne [address] 2019-08-14 2019-08-14 Watch [employer] Pcp-Lab [facility] 1.2.840.114 [id number] 11:02:02 11:12:02 Visit PRIMARY 350.1.13.10 CARE 4.2.7.2.686 PAVILLION [id number] 366 2019-08-12 2019-08-12 Telemedic Salvatore Ambriz [facility] 1.2.840 .114 [id number] [facility] 14:32:03 15:02:03 ne Visit Unknown, Attending PRIMARY 350.1.13.1 0 ity of [place] 4.2.7.2.[place] [id number] [facility] [address] 2019-08-12 2019-08-12 [facility] 1.2.840.114 [id number] 14:32:03 15:02:03 ne Visit Salvatore PRIMARY 350.1.13.10 CARE 4.2.7.2.686 PAVILLION [id number] 390 2019-08-12 2019-08-12 Outpatient R UNKNOWN, [facility] [id number] Univers 14:50:00 14:50:00 ATTENDING ity of [facility] 2019-08-12 2019-08-12 Telephone [facility] 1.2.125.147 [id number] Univers 00:00:00 00:00:00 Leandro Deras PRIMARY 350.1.13.10 ity of [place] 4.2.7.2.[place] [id number] [facility] [address] 2019-08-12 2019-08-12 Telephone [facility] 1.2.900.361 [id number] 00:00:00 00:00:00 Leandro Deras PRIMARY 350.1.13.10 CARE 4.2.7.2.686 PAVILLION [id number] 389 2019-08-07 2019-08-10 [facility] 1.2.840.114 [id number] Univers 08:31:45 15:00:40 ne Visit Kay DARBYPEC 350.1.13.10 ity of [place].2.[place].2.[place] [id number] [facility] AND GILL [address] [place] [address] DIABETES CLINIC 2019-08-07 2019-08-10 Telemedici [facility] 1.2.840.114 [id number] 08:31:45 15:00:40 ne Visit Kay Francis MULTISPEC 350.1.13.10 IAL[place] 4.2.7.2.686 [place] [phone] AND GILL [facility]ES CLIN[facility] 2019-08-07 2019-08-07 Outpatient R IHSAN [facility] [id number] Univers 10:30:00 10:30:00 KAY ramirez [facility] 2019-08-04 2019-08-04 Outpatient R ELIZABETH [facility] [id number] Univers 11:00:00 11:00:00 LIU, ity of [facility] 2019-08-04 2019-08-04 Telemedici Johan Alexander [facility] 1.2.84 0.114 [id number] Univers 07:35:13 08:05:13 ne Visit Trell Villagomez [facility] 350.1.13 .10 ity of [place] [facility] 4.2.7.2.68 6 [place] [id number] [address] 2019-08-04 2019-08-04 Telephone MAYTE AlexanderIT 1.2.840.114 [id number] Univers 00:00:00 00:00:00 [facility] 350.1.13.10 i ty of CLINICS 4.2.7.2.686 [place] [id number] [address] 2019-08-04 2019-08-04 Orders Doctor ALEM 1.2.840.114 [id number] Univers 00:00:00 00:00:00 Only Unassigned, JOSESITO 350.1.13.10 ity of [place] [facility] 4.2.7.2.686 Adrien as [id number] [place] [address] [address] 2019-08-03 2019-08-03 Refill [facility] 1.2.840.114 [id number] Univers 00:00:00 00:00:00 Mostafa MULTISPEC 350.1.13.10 ity of Silas Ahmed IALTY 4.2.7.2.686 [facility] [id number] [facility] AND [address] DIABETES [facility] 2019-08-03 2019-08-03 Refill [facility] 1.2.840.114 [id number] Univers 00:00:00 00:00:00 Mostafa MULTISPEC 350.1.13.10 ity of [place] Ahmed IALTY 4.2.7.2.686 [facility] [id number] [address] DIABETES [facility] 2019-08-03 2019-08-03 Telephone [facility] 1.2.933.994 [id number] Univers 00:00:00 00:00:00 Leandro Deras PRIMARY 350.1.13.10 ity of CARE 4.2.7.2.686 [facility] [id number] [address] 2019-08-03 2019-08-03 Telephone [facility] 1.2.840.114 [id number] Univers 00:00:00 00:00:00 Kay Tito MULTISPEC 350.1.13.10 ity of IALTY 4.2.7.2.[address] [facility] [id number] [address] DIABETES [facility] 2019-07-20 2019-07-20 Emergency ER MERRICK [facility] [id number] [place] 20:16:00 21:34:00 SHANNEN -[id number] [facility] 2019-06-23 2019-06-23 Emergency ER JAZMIN, [facility] [id number] [place] 15:06:00 17:30:00 ALYSSA -[id number] [facility] 2019-06-05 2019-06-05 Emergency ER RUPERT, [facility] [id number] [place] 16:39:00 19:48:00 BAO -[id number] [facility] 2019-06-05 2019-06-05 Telephone Martha HUIT .2.840.11 [id number] Univers 00:00:00 00:00:00 henok Juan Y 350.1.13.10 ity of NATIONAL 4.2.7.2.686 Adrien as BANK [phone] [facility] [address] 2019-05-19 2019-05-19 [facility] 1.2.840.114 [id number] Univers 00:00:00 00:00:00 Assessment henokSandyry Y 350.1.13.10 ity of NATIONAL 4.2.7.2.686 Adrien as BANK [phone] [facility] [address] 2019-03-05 2019-03-05 Outpatient Young_J [facility] [id number] [place] 03:44:00 03:44:00 024 Medical Group 2019-03-01 2019-03-01 Emergency ER TRELL, [facility] [id number] [place] 15:15:00 18:55:00 PATI [id number] [facility] 2019-01-26 2019-01-26 Telephone Jesse [facility] [id number] Univers 00:00:00 00:00:00 Leandrokevin Deras PRIMARY [id number] ity of [place] 4[place]2.[place] [id number] Or dical [address] 2019-01-21 2019-01-21 Emergency ER RUPERT, [facility] [id number] [place] 17:43:00 20:38:00 BAO [id number] [facility] 2018-12-30 2018-12-30 Office Elver Cyr [facility] 1.2 .840.114 [id number] [facility] 14:33:52 16:12:24 Visit Unknown, Attending PRIMARY 350.1.13.10 ity of Belia Metz CARE 4.2.7.2.686 [place] P[facility]ILLION [id number] Or dical [address] 2018-12-12 2018-12-12 Orders Doctor FERRARA 1.2.840.114 [id number] Univers 00:00:00 00:00:00 Only Unassigned, JOSESITO 350.1.13.10 ity of [facility] 4.2.7.2.686 Adrien as [phone] [facility] [address] 2018-12-05 2018-12-05 Transition Blaine Longo 1.2.840.114 [id number] Univers 00:00:00 00:00:00 of Care Nicky Hicks 350.1.13.10 it y [place] [phone] [facility] [address] 2018-12-02 2018-12-04 Hospital [facility] 1.2.840.114 [id number] Univers 00:29:00 19:45:00 Encounter Mikey Marquezy 35 0.1.13.10 ity of Emiliano Cheung [facility] 4.2.7.2.686 [place] [phone] [facility] [address] 2018-12-04 2018-12-04 Telephone AlvarezREBA 1.2.840.114 [id number] Univers 00:00:00 00:00:00 [facility] 350.1.13.10 it [place] [facility] 4.2.7.2.686 [facility] [id number] [facility] Primary & 059 Branch Specialty Care 2018-12-02 2018-12-02 Orders Doctor ALEM [id number] Univers 00:00:00 00:00:00 Only Unassigned, JOSESITO 350.1.13.10 ity of [place] [facility] 4.2.7.2.686 Adrien as [id number] [facility] 009 Branch 2018-11-29 2018-12-01 Inpatient ER Elina, [facility] [id number] [address] [place] 19:48:00 23:00:00 Sean -[id number] [facility] 2018-11-28 2018-11-29 Emergency ER MERRICK [facility] [id number] [place] 20:53:00 01:14:00 SHANNEN -[id number] [facility] 2018-04-03 2018-04-03 Emergency ER JAZMIN [facility] [id number] [place] 19:12:00 21:48:00 ALYSSA -[id number] [facility] 2017-07-31 2017-07-31 Emergency E [facility] [id number] Medical 19:16:00 19:16:00 [facility] 2017-05-30 2017-05-30 AURELIA [facility] 3 [id number] [place] 13:00:00 13:00:00 t; Jinny FONTAINE Ph greg Reid M.D. 2017-04-23 2017-04-23 AURELIA Knutson UTP [id number] [place] 09:15:00 09:15:00 t; Jinny FONTAINE Ph greg Reid M.D. 2013-08-09 2013-08-09 Emergency ER BA, RICHARD [facility] [id number] [place] 19:09:00 22:27:00 -[id number] [facility] 2013-05-11 2013-05-11 Emergency ER MEDINA, [facility] [id number] 61 [place] 02:30:00 05:46:00 WASIM -[id number] [facility] 2013-04-18 2013-04-18 Emergency ER UGORJI, [facility] [id number] 61 [place] 01:08:00 04:45:00 JUMANA -[id number] [facility] 2013-03-26 2013-03-26 Outpatient EL D'ANN, [facility] [id number] [place] 09:38:00 09:38:00 MATT -[id number] [facility] 2013-03-09 2013-03-09 Emergency ER DONOVAN, [facility] [id number] [place] 19:03:00 20:05:00 MIKAELA -[id number] [facility] 2012-12-04 2012-12-06 Inpatient ER D'ANN, [facility] [id number] [address] [place] 21:36:00 14:11:00 MATT -[id number] [facility] 2012-12-01 2012-12-02 Emergency ER BA, RICHARD [facility] [id number] [place] 22:29:00 01:22:00 -[id number] [facility] 2012-11-27 2012-11-27 Outpatient UR TARSHA, [facility] [id number] [place] 10:49:00 10:49:00 [place] -[id number] [facility] 2012-11-18 2012-11-18 Emergency ER UGORJI, [facility] [id number] 61 [place] 12:50:00 15:39:00 JUMANA -[id number] [facility] 2012-08-01 2012-08-01 Emergency ER UGORJI, [facility] [id number] 61 [place] 17:26:00 20:49:00 CLEDARRICK -[id number] [facility] 2012-07-19 2012-07-19 Emergency ER JERSEY, [facility] [id number] [address] [place] 14:19:00 15:44:00 [facility] -[id number] [facility] 2012-07-10 2012-07-10 Outpatient EL Franko, [facility] [id number] [place] 07:04:00 07:04:00 Talat -[id number] [facility] 2012-06-06 2012-06-06 Outpatient EL D'ANN, [facility] [id number] [place] 13:17:00 13:17:00 MATT -[id number] [facility] 2012-06-05 2012-06-06 Emergency ER UGMEG, [facility] [id number] 61 [place] 20:38:00 02:50:00 JUMANA -[id number] [facility] 2012-05-28 2012-06-01 Inpatient EL D'ANN, [facility] [id number] [address] [place] 17:00:00 10:27:00 MATT -[id number] [facility] 2012-03-09 2012-03-09 Emergency ER Bain, [facility] [id number] [place] 21:25:00 22:48:00 Driss -[id number] [facility] 2012-02-29 2012-02-29 Outpatient EL D'ANN, [facility] [id number] [place] 15:16:00 15:16:00 MATT -[id number] [facility] 2012-01-12 2012-01-12 Emergency ER UGORJI, [facility] [id number] [address] [place] 19:42:00 23:53:00 [facility] -[id number] [facility] 2011-08-14 2011-08-14 Outpatient GLADYS RAMOS, [facility] [id number] [place] 11:58:00 11:58:00 [id number] [facility] 2011-04-26 2011-04-26 Outpatient GLADYS RAMOS, [facility] [id number] [place] 14:29:00 14:29:00 [id number] [facility] 2010-10-18 2010-10-19 Emergency ER UGORJI, [facility] [id number] [address] [place] 20:52:00 01:50:00 [facility] -[id number] [facility] 2010-10-13 2010-10-16 Inpatient GLADYS RAMOS, [facility] [id number] [address] [place] 18:28:00 20:15:00 [id number] [facility] 2010-09-12 2010-09-14 Inpatient RACHEL, [facility] [id number] [address] [place] 12:12:00 13:45:00 [id number] [facility] Results Test Description Test Time Test Comments Results Result Comments Source COMP. METABOLIC PANEL (02751) 2023-01-22 02:14:38 Test Item Value Reference Range Interpretation Comme nts NA (test code = 0576585425) 140 mmol/L 135-145 K (test code = 0980228613) 3.9 mmol/L 3.5-5.0 CL (test code = 5430765104) 107 mmol/L 98-108 CO2 TOTAL (test code = 6669984688) 26 mmol/L 23-31 AGAP (test code = 4251481394) 7 2-16 BUN (test code = 2354157678) 8 mg/dL 7-23 GLUCOSE (test code = 8010429513) 158 mg/dL 70-110 H CREATININE (test code = 0.80 mg/dL 0.60-1.25 3349916511) TOTAL BILI (test code = 0.4 mg/dL 0.1-1.6 4056196201) CALCIUM (test code = 4931001301) 8.7 mg/dL 8.6-10.6 T PROTEIN (test code = 8005215760) 7.7 g/dL 6.3-8.2 ALBUMIN (test code = 8178222408) 4.1 g/dL 3.5-5.0 ALK PHOS (test code = 5055790618) 78 U/L 34-122 ALTv (test code = 1742-6) 22 U/L 5-50 AST(SGOT) (test code = 6175136919) 35 U/L 13-40 eGFR (test code = 2014401459) 101.5 mL/min/1.73m2 SHAWN (test code = SHAWN) Association [...] tests). Lab Interpretation (test code = Abnormal 44139-9) [facility] WITH [id number] 02:07:04 Test Item Value Reference Range Interpretation Comments WBC (test code = 9.52 See_Comment [Automated 1120-2) message] The sy stem which generated this result transmitted reference range : 4.20 - 10.70 10*3/?L. The reference range was not used to interpret this result as normal/abnormal . RBC (test code = 4.75 See_Comment [Automated 789-8) message] The sy stem which generated this result transmitted reference range : 4.26 - 5.52 10*6/?L. The reference range was not used to interpret this result as normal/abnormal . HGB (test code = 14.8 g/dL 12.2-16.4 718-7) HCT (test code = 42.7 % 38.4-49.3 4544-3) MCV (test code = 89.9 fL 81.7-95.6 787-2) MCH (test code = 31.2 pg 26.1-32.7 785-6) MCHC (test code = 34.7 g/dL 31.2-35.0 786-4) RDW-SD (test code = 43.6 fL 38.5-51.6 45593-2) RDW-CV (test code = 13.3 % 12.1-15.4 788-0) PLT (test code = 141 See_Comment L [Automated 777-3) message] The sy stem which generated this result transmitted reference range : 150 - 328 10*3/ ?L. The reference r bhavna was not used to interpret this result as normal/abnormal . MPV (test code = 12.6 fL 9.8-13.0 70625-6) IPF % (test code = 15.8 % 1.2-10.7 H Platelet count 6804992398) measured by fluorescence method. NRBC/100 WBC (test 0.0 See_Comment [Automat ed code = 1678612357) message] The system which generated this result transmitted reference range : 0.0 - 10.0 /100 WBCs. The refer ence range was not u sed to interpret th is result as normal/abnormal . NRBC x10^3 (test code See_Comment [Auto mated = 8731370497) message] The s ystem which generated this result transmitted reference range : 10*3/?L. The reference range was not used to interpret this result as normal/abnormal . GRAN MAT (NEUT) % 67.5 % (test code = 770-8) IMM GRAN % (test code 0.80 % = 3548123040) LYMPH % (test code = 19.1 % 736-9) MONO % (test code = 5.8 % 5905-5) EOS % (test code = 6.2 % 713-8) BASO % (test code = 0.6 % 706-2) GRAN MAT x10^3(ANC) 6.42 10*3/uL 1.99-6.95 (test code = 4120323837) IMM GRAN x10^3 (test 0.08 10*3/uL 0.00-0.06 H code = 2666605242) LYMPH x10^3 (test code 1.82 10*3/uL 1.09-3.23 = 731-0) MONO x10^3 (test code 0.55 10*3/uL 0.36-1.02 = 742-7) EOS x10^3 (test code = 0.59 10*3/uL 0.06-0.53 H 711-2) BASO x10^3 (test code 0.06 10*3/uL 0.01-0.09 = 704-7) Lab Interpretation Abnormal (test code = 45923-4) [facility]-Glucose [id number] 08:26:55 Test Item Value Reference Range Interpretation Comments POC-Glucose Meter (test 141 mg/dL 70-110 H : TE STED AT [facility] code = 1538) [address] [place] [address], 770 30: Sales Engineer Account Manager/Techni olesya ID = [id number] for Wimbley, Tahja Lab Interpretation (test Abnormal code = 55716-4) [facility]-Glucose [id number] 08:26:55 Test Item Value Reference Range Interpretation Comments POC-Glucose Meter (test 141 mg/dL 70-110 H : TE STED AT [facility] code = 1538) [address] [place] [address], 770 30: Sales Engineer Account Manager/Techni olesya ID = [id number] for Wimbley, Tahja Lab Interpretation (test Abnormal code = 67999-9) [facility]-Glucose [id number] 08:26:55 Test Item Value Reference Range Interpretation Comments POC-Glucose Meter (test 141 mg/dL 70-110 H : TE STED AT [facility] code = 1538) [address] [place] [address], 770 30: Sales Engineer Account Manager/Techni olesya ID = [id number] for Wimbley, Tahja Lab Interpretation (test Abnormal code = 63210-2) [facility]-Glucose [id number] 08:26:55 Test Item Value Reference Range Interpretation Comments POC-Glucose Meter (test 141 mg/dL 70-110 H : TE STED AT [facility] code = 1538) [address] [place] [address], 770 30: Sales Engineer Account Manager/Techni olesya ID = [id number] for Wimbley, Tahja Lab Interpretation (test Abnormal code = 13889-8) [facility]-Glucose [id number] 08:26:55 Test Item Value Reference Range Interpretation Comments POC-Glucose Meter (test 141 mg/dL 70-110 H : TE STED AT [facility] code = 1538) [address] [place] [address], 770 30: Sales Engineer Account Manager/Techni olesya ID = [id number] for Wimbley, Tahja Lab Interpretation (test Abnormal code = 92618-7) [facility]-Glucose [id number] 08:26:55 Test Item Value Reference Range Interpretation Comments POC-Glucose Meter (test 141 mg/dL 70-110 H : TE STED AT [facility] code = 1538) [address] [place] [address], 770 30: Sales Engineer Account Manager/Techni olesya ID = [id number] for Wimbley, Tahja Lab Interpretation (test Abnormal code = 03827-7) [facility]-GLUCOSE [id number] 08:26:55 Test Item Value Reference Range Interpretation Comments POC-GLUCOSE METER 141 mg/dL 70-110 H : TESTED A T [facility] 6720 (BEAKER) (test code = [facility]KEVIN Black [facility], 1538) 03309: Sales Engineer Account Manager/Techni olesya ID = [id number] for Wi mbley, Tahja [id number] 06:43:25 Test Item Value Reference Range Interpretation Comments MAGNESIUM (BEAKER) (test code = 2.2 mg/dL 1.6-2.6 627) Sales Engineer Account Manager ID - [id number] 06:43:25 Test Item Value Reference Range Interpretation Comments PHOSPHORUS (BEAKER) (test code = 2.9 mg/dL 2.3-4.7 604) Sales Engineer Account Manager ID - MARCOBASIC METABOLIC [id number] 06:43:24 Test Item Value Reference Range Interpretation [...] not appl icable for dialysis patien ts Sales Engineer Account Manager ID - MARCOCBC W/PLT COUNT & AUTO [id number] 06:01:36 Test Item Value Reference Range Interpretation [...] PERCENT (BEAKER) (test code = 2801) POCT-GLUCOSE [id number] 22:23:26 Test Item Value Reference Range Interpretation Comments POC-GLUCOSE METER 186 mg/dL 70-110 H : TESTED A T [facility] 6720 (BEAKER) (test code = [place], 1538) 49693: Sales Engineer Account Manager/Techni olesya ID = [id number] for Nicole Esquivel HIGH SENSITIVITY TROPONIN [id number] 19:54:32 Test Item Value Reference Range Interpretation Comments HIGH SENSITIVITY TROPONIN I (test < pg/ml <=35 code = 7969311) The O AND M SUPERVISOR STAT High Sensitivity Troponin-I results should be used in conjunction with other diagnostic information such as ECG, clinical observations and information, and patient symptoms to aid inthe diagnosis of CO.BASIC METABOLIC [id number] 19:44:55 Test Item Value Reference Range Interpretation [...] not appl icable for dialysis patien ts [id number] 19:44:55 Test Item Value Reference Range Interpretation Comments MAGNESIUM (BEAKER) (test code = 2.1 mg/dL 1.6-2.6 627) [id number] 19:44:55 Test Item Value Reference Range Interpretation Comments PHOSPHORUS (BEAKER) (test code = 2.0 mg/dL 2.3-4.7 L 604) CBC W/PLT COUNT & AUTO [id number] 19:27:50 Test Item Value Reference Range Interpretation [...] code = 2801) CT BRAIN WITHOUT IV [id number] 18:49:08 [facility] CENTERName: SUDHEER JUAREZ : 1970 [...] the left basal ganglia.Electronically Signed By: Sary Michaels/ 18:51 CDTWorkstation Name: [id number]- GLUCOSE [id number] 17:16:25 Test Item Value Reference Range Interpretation Comments POC-GLUCOSE METER 234 mg/dL 70-110 H : TESTED A T [facility] 6720 (BEAKER) (test code = [facility], 1538) 92219: Sales Engineer Account Manager/Techni olesya ID = [id number] for Jean-Pierre Duff POCT-GLUCOSE [id number] 12:48:27 Test Item Value Reference Range Interpretation Comments POC-GLUCOSE METER 153 mg/dL 70-110 H : TESTED A T [facility] 6720 (BEAKER) (test code = [facility], 1538) 86259: Sales Engineer Account Manager/Techni olesya ID = [id number] for Mey Dos Santos POCT-GLUCOSE [id number] 08:34:06 Test Item Value Reference Range Interpretation Comments POC-GLUCOSE METER 199 mg/dL 70-110 H : TESTED A T [facility] 6720 (BEAKER) (test code = [facility], 1538) 41273: Sales Engineer Account Manager/Techni olesya ID = [id number] for Mey Dos Santos CBC W/PLT COUNT & AUTO [id number] 05:53:53 Test Item Value Reference Range Interpretation [...] (BEAKER) (test code = 2801) BASIC METABOLIC [id number] 05:46:34 Test Item Value Reference Range Interpretation [...] not as accur ate as Creatinine Velma daivde in predicting glom erular filtration rate . Estimated GFR is not appl icable for dialysis patien ts [id number] 05:46:34 Test Item Value Reference Range Interpretation Comments MAGNESIUM (BEAKER) (test code = 2.1 mg/dL 1.6-2.6 627) [id number] 05:46:34 Test Item Value Reference Range Interpretation Comments PHOSPHORUS (BEAKER) (test code = 2.6 mg/dL 2.3-4.7 604) POCT-GLUCOSE [id number] 22:01:37 Test Item Value Reference Range Interpretation Comments POC-GLUCOSE METER 169 mg/dL 70-110 H : TESTED A T [facility] 6720 (BEAKER) (test code = [facility], 153) 74886: Sales Engineer Account Manager/Techni olesya ID = [id number] for Nicole Esquivel POCT-GLUCOSE [id number] 18:12:40 Test Item Value Reference Range Interpretation Comments POC-GLUCOSE METER 231 mg/dL 70-110 H : TESTED A T [facility] 6720 (BEAKER) (test code = [facility], 1538) 09036: Sales Engineer Account Manager/Techni olesya ID = [id number] for Jean-Pierre Duff POCT-GLUCOSE [id number] 13:10:52 Test Item Value Reference Range Interpretation Comments POC-GLUCOSE METER 183 mg/dL 70-110 H : TESTED A T [facility] 6720 (BEAKER) (test code = [facility], 1538) 83196: Sales Engineer Account Manager/Techni olesya ID = [id number] for Melissa arthurgenovevaMey POCT-GLUCOSE [id number] 08:23:00 Test Item Value Reference Range Interpretation Comments POC-GLUCOSE METER 163 mg/dL 70-110 H : [facility] (BEAKER) (test code = [place], 1538) 22158: Sales Engineer Account Manager/Techni olesya ID = [id number] for Mey Dos Santos [id number] 06:47:03 Test Item Value Reference Range Interpretation Comments MAGNESIUM (BEAKER) (test code = 1.9 mg/dL 1.6-2.6 627) Sales Engineer Account Manager ID - ADMINOperator ID - [id number] 05:46:13 Test Item Value Reference Range Interpretation Comments PHOSPHORUS (BEAKER) (test code = 2.7 mg/dL 2.3-4.7 604) Sales Engineer Account Manager ID - ADMINCBC W/PLT COUNT & AUTO [id number] 04:58:21 Test Item Value Reference Range Interpretation [...] PERCENT (BEAKER) (test code = 2801) POCT-GLUCOSE [id number] 21:08:50 Test Item Value Reference Range Interpretation Comments POC-GLUCOSE METER 170 mg/dL 70-110 H : TESTED A T [facility] 6720 (BEAKER) (test code [facility], = 1538) 64737: Sales Engineer Account Manager/Techni olesya ID = [id number] for Thanh Ruiz POCT-GLUCOSE [id number] 17:45:46 Test Item Value Reference Range Interpretation Comments POC-GLUCOSE METER 235 mg/dL 70-110 H : TESTED A T [facility] 6720 (BEAKER) (test code = [facility]KEVIN Black [facility], 1538) 72616: Sales Engineer Account Manager/Techni olesya ID = [id number] for FEDERICO FERNANDOLOREN MAUREEN [id number] 14:58:42 Test Item Value Reference Range Interpretation Comments RPR SCREEN (BEAKER) (test code = Nonreactive Nonreactive 420) CT BRAIN WITHOUT IV [id number] 12:27:04 [facility] : 1970 Sex: MCT BRAIN [...] Signed By: Sary Maradiaga11/22/2022 12:29 CDTWorkstation Name: [id number] METER 2022-11-22 11:32:35 Test Item Value Reference Range Interpretation Comments POC-GLUCOSE METER 158 mg/dL 70-110 H : TESTED A T [facility] 6720 (BEAKER) (test code = [place], 1538) 45081: Sales Engineer Account Manager/Techni olesya ID = [id number] for Julio César Mae HEMOGLOBIN [id number] 11:17:17 Test Item Value Reference Range Interpretation Comments HEMOGLOBIN A1C 8.1 % See_Comment H [Automated m essage] ELECTROPHORESIS (BEAKER) The system which (test code = 3811) generated this result transmitted ref erence range: <=5.6%. The reference range was not used to int erpret this result as normal/abnormal . "The A1c is measured using a NGS-certified method. HbA1c value equal to or greater than 6.5% as thediagnosis cutoff for diabetes. An HbA1c value of 5.7- 6.4% indicates increased risk for diabetes (prediabetes)."Sales Engineer Account Manager ID - ADMPOCT- GLUCOSE [id number] 08:13:06 Test Item Value Reference Range Interpretation Comments POC-GLUCOSE METER 143 mg/dL 70-110 H : TESTED A T [facility] 6720 (BEAKER) (test code = [place], 1538) 61546: Sales Engineer Account Manager/Techni olesya ID = [id number] for ALEM HARRIS CBC W/PLT COUNT & AUTO [id number] 04:17:53 Test Item Value Reference Range Interpretation [...] GRANULOCYTES-RELATIVE PERCENT (BEAKER) (test code = 2801) [id number] 04:06:03 Test Item Value Reference Range Interpretation Comments MAGNESIUM (BEAKER) (test code = 1.6 mg/dL 1.6-2.6 627) Sales Engineer Account Manager ID - [id number] 04:06:03 Test Item Value Reference Range Interpretation Comments PHOSPHORUS (BEAKER) (test code = 3.7 mg/dL 2.3-4.7 604) Sales Engineer Account Manager ID - MMBASIC METABOLIC [id number] 04:06:02 Test Item Value Reference Range Interpretation [...] 358) GLUCOSE RANDOM 142 mg/dL 70-105 H (TIFFANY) (test code = 652) CALCIUM (TIFFANY) 9.3 mg/dL 8.4-10.2 (test code = 697) EGFR (TIFFANY) 106 Interpretatio n of eGFR (test code [...] not appl icable for dialysis patien ts Sales Engineer Account Manager ID - MMCT BRAIN WITHOUT IV [id number] 01:51:30 [facility] : 1970 Sex: MEXAM/TECHNIQUE: Noncontrast [...] Signed By: Ravinder Rojo11/22/2022 01:54 CDTWorkstation Name: [id number] 18:45:00 Test Item Value Reference Range Interpretation Comments VITAMIN B12 (Antenna SoftwareAKER) (test code = 383 pg/mL 213-816 774) Sales Engineer Account Manager ID - BSHIV-1 ANTIGEN WITH HIV-1/2 [id number] 17:48:38 Test Item Value Reference Range Interpretation Comments HIV-1 ANTIGEN WITH HIV 1\\T\\2 Nonreactive Nonreactive ANTIBODY (2) (Ceon) (test code = 2586) Sales Engineer Account Manager ID - ADMINTSH/FREE T4 IF [id number] 17:48:37 Test Item Value Reference Range Interpretation Comments THYROID STIMULATING HORMONE 1.693 uIU/mL 0.350-4.940 (Antenna SoftwareAKER) (test code = 772) Sales Engineer Account Manager ID - ADMINHIGH SENSITIVITY TROPONIN [id number] 17:34:01 Test Item Value Reference Range Interpretation Comments HIGH SENSITIVITY TROPONIN I (test < pg/ml <=35 code = 4238151) Sales Engineer Account Manager ID - ADMINThe O AND M SUPERVISOR STAT High Sensitivity Troponin-I results should be used in conjunction with other diagnostic information such as ECG, clinical observations and information, and patientsymptoms to aid in the diagnosis of CO. CBC W/PLT COUNT & AUTO [id number] 17:04:31 Test Item Value Reference Range Interpretation [...] PERCENT (BEAKER) (test code = 2801) LIPID [id number] 16:20:15 Test Item Value Reference Range Interpretation [...] 31 U/L 29-200 code = 380) C-REACTIVE [id number] 16:20:15 Test Item Value Reference Range Interpretation Comments C-REACTIVE PROTEIN (BEAKER) (test 1.08 mg/dL 0.00-0.50 H code = 676) COMPREHENSIVE METABOLIC [id number] 16:20:14 Test Item Value Reference Range Interpretation [...] not appl icable for dialysis patien ts [id number] 16:20:14 Test Item Value Reference Range Interpretation Comments MAGNESIUM (BEAKER) (test code = 1.6 mg/dL 1.6-2.6 627) [id number] 16:20:14 Test Item Value Reference Range Interpretation Comments PHOSPHORUS (BEAKER) (test code = 3.3 mg/dL 2.3-4.7 604) [id number] 15:37:23 Test Item Value Reference Range Interpretation Comments PARTIAL THROMBOPLASTIN TIME 35.5 seconds 22.5-36.0 (BEAKER) (test code = 760) PROTHROMBIN TIME/[id number] 15:36:45 Test Item Value Reference Range Interpretation Comments PROTIME (BEAKER) (test code = 15.3 seconds 11.9-14.2 H 759) INR (BEAKER) (test code = 370) 1.29 <=5.90 RECOMMENDED COUMADIN/WARFARIN INR THERAPY RANGESSTANDARD DOSE: 2.0 - 3.0 Includes: PROPHYLAXIS for venous thrombosis, systemic embolization; TREATMENT for venous thrombosis and/or pulmonary embolus.HIGH RISK: Target INR is 2.5-3.5 for patients with mechanical heart valves.POCT-GLUCOSE [id number] 14:53:41 Test Item Value Reference Range Interpretation Comments POC-GLUCOSE METER 183 mg/dL 70-110 H : TESTED A T [facility] 6720 (TIFFANY) (test code = [place], 1538) 55454: Sales Engineer Account Manager/Techni olesya ID = [id number] for Wendy Urena BASIC METABOLIC PANEL (NA, K, CL, CO2, GLUCOSE, BUN, CREATININE, CA)2022-10-28 16:23:16 Test Item Value Reference Range Interpretation Comments NA (test code = 136 mmol/L 135-145 4633829345) K (test code = 4.0 mmol/L 3.5-5.0 9808231388) CL (test code = 101 mmol/L 98-108 5835936060) CO2 TOTAL (test code = 23 mmol/L 23-31 8157984081) AGAP (test code = 12 2-16 7054071094) BUN (test code = 9 mg/dL 7-23 4357651910) GLUCOSE (test code = 286 mg/dL 70-110 H 4109309846) CREATININE (test code = 0.68 mg/dL 0.60-1.25 2049946627) CALCIUM (test code = 8.3 mg/dL 8.6-10.6 L 4010972431) eGFR (test code = 122.5 mL/min/1.73m2 9727019795) SHAWN (test code = SHAWN) Association of [...] tests). Lab Interpretation Abnormal (test code = 18703-0) [facility] WITH [id number] 16:10:58 Test Item Value Reference Range Interpretation [...] RDW-SD (test code = 42.8 fL 38.5-51.6 08649-0) RDW-CV (test code = 13.2 % 12.1-15.4 788-0) PLT (test code = 156 See_Comment [Automated 777-3) message] The sy stem which generated this result transmitted reference range : 150 - 328 10*3/ ?L. The reference r bhavna was not used to interpret this result as normal/abnormal . MPV (test code = 13.0 fL 9.8-13.0 09799-4) NRBC/100 WBC (test 0.0 See_Comment [Automat ed code = [id number]) message] The system which generated this result transmitted reference range : 0.0 - 10.0 /100 WBCs. The refer ence range was not u sed to interpret th is result as normal/abnormal . NRBC x10^3 (test code See_Comment [Auto mated = [id number]) message] The s ystem which generated this result transmitted reference range : 10*3/?L. The reference range was not used to interpret this result as normal/abnormal . GRAN MAT (NEUT) % 72.3 % (test code = 770-8) IMM GRAN % (test code 2.00 % = 7559742242) LYMPH % (test code = 15.0 % 736-9) MONO % (test code = 9.1 % 5905-5) EOS % (test code = 1.1 % 713-8) BASO % (test code = 0.5 % 706-2) GRAN MAT x10^3(ANC) 9.42 10*3/uL 1.99-6.95 H (test code = 5099255746) IMM GRAN x10^3 (test 0.26 10*3/uL 0.00-0.06 H code = 4988591548) LYMPH x10^3 (test code 1.96 10*3/uL 1.09-3.23 = 731-0) MONO x10^3 (test code 1.19 10*3/uL 0.36-1.02 H = 742-7) EOS x10^3 (test code = 0.14 10*3/uL 0.06-0.53 711-2) BASO x10^3 (test code 0.06 10*3/uL 0.01-0.09 = 704-7) Lab Interpretation Abnormal (test code = 79514-9) [id number] Test Item Value Reference Range Interpretation Comments GLUBED (test code = GLUBED) 155 mg/dL 70-110 H BASIC METABOLIC [id number] 06:26:00 Test Item Value Reference Range Interpretation [...] CA) 8.0 mg/dl 8.0-10.5 N CBC W/AUTO [id number] 06:04:00 Test Item Value Reference Range Interpretation [...] code = BA#) 0.1 K/mm3 0.0-0.2 N [id number] 05:50:00 Test Item Value Reference Range Interpretation Comments GLUBED (test code = GLUBED) 163 mg/dL 70-110 H [id number] 00:32:00 Test Item Value Reference Range Interpretation Comments GLUBED (test code = GLUBED) 216 mg/dL 70-110 H [id number] 05:57:00 Test Item Value Reference Range Interpretation Comments GLUBED (test code = GLUBED) 147 mg/dL 70-110 H [id number] 00:14:00 Test Item Value Reference Range Interpretation Comments GLUBED (test code = GLUBED) 169 mg/dL 70-110 H [id number] 16:32:00 Test Item Value Reference Range Interpretation Comments GLUBED (test code = GLUBED) 132 mg/dL 70-110 H [id number] 11:51:00 Test Item Value Reference Range Interpretation Comments GLUBED (test code = GLUBED) 170 mg/dL 70-110 H CARDIAC ENZYMES [id number] 08:23:00 Test Item Value Reference Range Interpretation Comments CREATINE KINASE (CK) 28 Units/L 39-308 L (test code = CK) TROPONIN-I (test code <0.02 NG/ML 0.00-0.06 N REFERE NCE RANGE = TROPI) TROPONIN I HEAL THY INDIVIDUALS: <0 .06 ng/mL R/O ISCHE AKHIL: 0.07 - 0.60 ng/ mL CUT-OFF RANGE F OR AMI: 0.60 - 1.5 ng/mL - XR CHEST 1 [id number] 06:38:00 FAX: Sky Valente MD [phone] [place]: St: ADM FAX: Chilango Dobbs [phone] ------ Name: SUDHEER JUAREZ [facility] : 1970 Age/S: 47/M [address] [facility] Unit #: [id number] Loc: [address] Phys: Chilango Vigil [address] Acct: [id number] Dis Date: Status: ADM IN PHONE #:[phone] Exam Date: 08/12/2018 06 FAX #: [phone] Reason: CHEST PAIN EXAMS: CPT CODE: [id number] XR CHEST 1 V 55630 Location: U19. CHEST, FRONTAL VIEW HISTORY: CHEST [...] 1 Signed Report FAX: Sky Valente MD [phone] [place]: St: ADM FAX: Chilango Dobbs [phone] Name: SUDHEER JUAREZ [facility] : 1970 Age/S: 47/M [address] [facility] Unit #: [id number] Loc: [address] Phys: Chilango Vigil [address] Acct: [id number] Dis Date: Status: ADM IN PHONE #: [phone] Exam Date: 08/12/2018635 FAX #: [phone] Reason: CHEST PAIN EXAMS: CPT CODE: [id number] XR CHEST 1 V 64493 (Continued) Orig Print D/T: S: 08/12/2018 (0641) PAGE 2 Signed [id number] 05:48:00 Test Item Value Reference Range Interpretation Comments GLUBED (test code = GLUBED) 155 mg/dL 70-110 H [id number] 04:15:00 Test Item Value Reference Range Interpretation Comments GLUBED (test code = GLUBED) 195 mg/dL 70-110 H [id number] 16:15:00 Test Item Value Reference Range Interpretation Comments GLUBED (test code = GLUBED) 210 mg/dL 70-110 H URINALYSIS [id number] 13:21:00 Test Item Value Reference Range Interpretation [...] = MUCU) TRACE DRUGS OF ABUSE SCREEN [id number] 13:20:00 Test Item Value Reference Interpretation Comments [...] = [place]) concentrati on: 300 ng/mL URINALYSIS [id number] 13:17:00 Test Item Value Reference Range Interpretation [...] UA BACTERIA (test code = NONE BACU) [id number] 11:54:00 Test Item Value Reference Range Interpretation Comments HGBA1C% (test code = HGBA1C%) 5.7 %A1C 4.8-6.0 N ESTIMATED AVERAGE GLUCOSE (test 117 MG/DL code = EAG) [id number] 11:19:00 Test Item Value Reference Range Interpretation Comments GLUBED (test code = GLUBED) 225 mg/dL 70-110 H COMPREHENSIVE METABOLIC [id number] 07:52:00 Test Item Value Reference Range Interpretation [...] 50.0-136.0 N code = ALKP) Comments to Linux Network Engineer: Patient is currently in the ED waiting [...] LDL) 128 mg/dl 70-130 N Comments to Linux Network Engineer: Patient is currently in the ED waiting on a bed [id number] 07:52:00 Test Item Value Reference Range Interpretation Comments MAGNESIUM (test code = MAG) 1.9 mg/dl 1.8-2.4 N Comments to Linux Network Engineer: Patient is currently in the ED waiting on a bedCBC W/AUTO [id number] 07:31:00 Test Item Value Reference Range Interpretation [...] BA#) 0.0 K/mm3 0.0-0.2 N Comments to Linux Network Engineer: Patient is currently in the ED waiting on a bedGLUBED 2018-08-11 05:55:00 Test Item Value Reference Range Interpretation Comments GLUBED (test code = GLUBED) 215 mg/dL 70-110 H [id number] 00:35:00 Test Item Value Reference Range Interpretation Comments GLUBED (test code = GLUBED) 260 mg/dL 70-110 H COMPREHENSIVE METABOLIC [id number] 18:48:00 Test Item Value Reference Range Interpretation [...] 50.0-136.0 N code = ALKP) COMPREHENSIVE METABOLIC [id number] 18:41:00 Test Item Value Reference Range Interpretation [...] (test Units/L 50.0-136.0 code = ALKP) PROTHROMBIN [id number] 18:36:00 Test Item Value Reference Range Interpretation Comments PROTHROMBIN TIME 12.6 SECONDS 9.9-12.8 N PATIENT (test code = PTP) INTERNATIONAL NORMAL 1.1 0.89-1.14 N THE INR IS TO BE USED RATIO (test code = ONLY FOR MONITORING INR) ORAL ANTICOAGULANTTH ERAPY. THE FOLLOWING A RE SUGGESTED RANGE S FROM [facility] LE[facility]:REJI CATION INR [...] D ANTIBODIES 2.5 - 3.5 CBC W/AUTO [id number] 18:31:00 Test Item Value Reference Range Interpretation [...] K/mm3 0.0-0.2 N - CT L-SPINE W/O [id number] 18:03:00 FAX: Sagar Troncoso MD [phone] [place]: St: REG Name: SUDHEER JUAREZ [facility] : 1970 Age/S: 47/M [address] [facility] Unit: [id number] Loc: [place], [place] Phys: Sagar Peters [facility] [address] Acct: [id number] Dis Date: Status: REG ER PHONE #: [phone] Exam Date: 08/10/2018 1754 FAX #: [phone] Reason: acute injury, Hx L3-4 fusion EXAMS: CPT CODE: [id number] CT L-SPINE W/O CONTRAST 45934 EXAM: CT LUMBAR SPINE WITHOUT CONTRAST INDICATION: [...] Signed Report (CONTINUED) FAX: Sagar Troncoso MD [phone] [place]: St: REG Name: SUDHEER JUAREZ [facility] : 1970 Age/S: 47/M [address] [facility] Unit: [id number] Loc: [place], [place] Phys: [place] [address] Acct: [id number] Dis Date: Status: REG ER PHONE #: [phone] Exam Date: 08/10/2018 6071 FAX #: [phone] Reason: acute injury, Hx L3-4 fusion EXAMS: CPT CODE: [id number] CT L-SPINE W/O CONTRAST 16765 (Continued) Diffuse discogenic disease and facet joint [...] (180) [email or web address] Orig Print D/T: S: 08/10/2018 (1806 PAGE 2 Signed Report- CT HEAD/BRAIN W/O [id number] 17:56:00 FAX: Sagar Troncoso MD [phone] [place]: St: REG Name: SUDHEER JUAREZ [facility] : 1970 Age/S: 47/M [address] [facility] Unit: [id number] Loc: [place], [place] Phys: Sagar Peters [facility] [address] Acct: [id number] Dis Date: Status: REG ER PHONE #: [phone] Exam Date: 08/10/2018 1754 FAX #: [phone] Reason: acute injury, +LOC EXAMS: CPT CODE: [id number] CT HEAD/BRAIN W/O CONT 40753 CT HEAD WITHOUT CONTRAST. HISTORY: acute injury, [...] No evidence of acute intracranial abnormality. at 4054 Reported and signed by: Augusta Remy M.D. CC: Sagar Peters MD Technologist: MEHUL Huffman Dt/Tm: 08/10/2018 (1546) [email or web address] Orig Print D/T: S: 08/10/2018 (9139 PAGE 1 Signed Report- XR T-SPINE 3 VIEWS 2018-08-10 17:33:00 FAX: Sagar Troncoso MD [phone] [place]: St: REG Name: JUAREZSUDHEER CAILIN [facility] : 1970 Age/S: 47/M [address] [facility] Unit #: [id number] [place]: [place] [address] Acct: [id number] Dis Date: Status: REG ER PHONE #: [phone] Exam Date: 08/10/2018 1729 FAX #: [phone] Reason: acute injury EXAMS: CPT CODE: [id number] XR T-SPINE 3 VIEWS 92717 Site ID: [id number] HISTORY: Acute injury, back pain IMPRESSION: Normal thoracic kyphosis, no acute fracture or subluxation. No significant spondylosis. Visualized ribs are intact. Spinal epidural leads terminate at the T8-T9 level. at 5346 Reported and signed by: Memo Matos M.D. CC: Sagar Peters MD Technologist: AHI Huffman Date/Time/By: 08/10/2018 (7542) : By: [email or web address] PAGE 1 Signed Report FAX: Sagar Troncoso MD [phone] [place]: St: REG -- Name: SUDHEER JUAREZ [facility] : 1970 Age/S: 47/M [address] [facility] Unit #: [id number] Loc: [place], [place] Phys: [place] [address] Acct: [id number] Dis Date: Status: REG ER PHONE #: [phone] Exam Date: 08/10/2018 1729 FAX #: [phone] Reason: acute injury EXAMS: CPT CODE: [id number] XR T-SPINE 3 VIEWS 20850 (Continued) Orig Print D/T: S: 08/10/2018(1736) PAGE 2 Signed Report[U] XRAY SPINE LUMBOSACRAL MIN 4 VWS [id number] 13:57:00 Test Item Value Reference Range Interpretation Comments XR SPINE LUMBOSACRAL EXAM: XR SPINE MIN 4 VWS (test code = LUMBOSACRAL MIN 4 VWS 29798-2) DATE: 05/30/2017 at 1400 hours. INDICATION: Lower back pain. COMPARISON: None available. TECHNIQUE: AP, lateral, coned lateral, LPO and RPO radiographs of the lumbar spine. FINDINGS:5 nonrib bearing, lumbar-type vertebral bodies are present.A presumed spinal cord stimulator battery pack project over the left hip. Its distal leads are excluded from the thaaj-bk-dula.Moderate facet arthropathy is present throughout the mid to lower lumbar spine.There appears to be an intervening disc spacer at the L3-L4 level. IMPRESSION:1. No acute, radiographic abnormality of the lower lumbar spine.2. Advanced facet arthropathy throughout the mid to lower lumbar spine.3. Probable intervening disc spacer at the L3-L4 level. 05/30/2017 2:32 PM HISTORICAL SITE GUIDE Lamont Hector [facility]
[2023-02-02] MEDS ORDERED: DIPHENHYDRAMINE 50 MG/ML VIAL ONE (03:25)
[2023-02-02] MEDS ORDERED: METOCLOPRAMIDE 10 MG/2mL INJ ONE (03:25)
--- NOTE | 2023-02-02 04:22 | ER ---
Nurse's Notes [facility] Name: Matti Juarez Age: 52 yrs Sex: Male : 1970 Arrival Date: 02/02/2023 Time: 01:55 Bed 16 Private MD: Diagnosis: Headache;Neck pain Presentation: 02/02 01:59 Chief complaint: Patient states: I WAS IN MY BATHROOM WHEN I FEEL. I DID NOT HIT MY ha1 HEAD BUT NOW I AM FEELING A HEADACHE. NO LOC. 01:59 Coronavirus screen: Vaccine status: Patient reports receiving the 2nd dose of the covid ha1 vaccine. MODERNA. Ebola Screen: No symptoms or risks identified at this time. Initial Sepsis Screen: Does the patient meet any 2 criteria? No. Patient's initial sepsis screen is negative. Does the patient have a suspected source of infection? No. Patient's initial sepsis screen is negative. Risk Assessment: Do you want to hurt yourself or someone else? Patient reports no desire to harm self or others. Onset of symptoms was February 02, 2023. 01:59 Method Of Arrival: Wheelchair ha1 01:59 Acuity: JELENA 3 ha1 Triage Assessment: 02:15 General: Appears comfortable, Behavior is calm, cooperative. Pain: Complains of pain in ha1 headache Pain does not radiate. Pain currently is 7 out of 10 on a pain scale. Quality of pain is described as pressure. Neuro: Level of Consciousness is awake, alert, obeys commands, Oriented to person, place, time, situation. Cardiovascular: Patient's skin is warm and dry. Respiratory: Airway is patent Respiratory effort is even, unlabored, Respiratory pattern is regular, symmetrical. 02:15 Musculoskeletal: Circulation, motion, and sensation intact. ha1 Historical: - Allergies: 02:23 Anesthesia; ha1 02:23 Aspirin; ha1 02:23 atorvastatin; ha1 02:23 Iodinated Contrast Media - IV Dye (cardiac arrest); ha1 02:23 Requip; ha1 02:23 ropinirole HCl; ha1 02:23 SHELLFISH; ha1 - PMHx: 02:23 cardiac arrest; Diabetes - NIDDM; heart catheterization; Hemorrhagic Stroke; ha1 Hypertension; Right sided weakness; - PSHx: 02:23 Cholecystectomy; spine fusion; spine stimulator; LEFT HIP; pain pump implant; RIGHT ha1 LOWER ABD; - Immunization history:: Adult Immunizations unknown. - Social history:: Smoking status: Patient denies any tobacco usage or history of. Screenin:00 [facility] ED Fall Risk Assessment (Adult) History of falling in the last 3 months, ha1 including since admission Yes- single mechanical fall (1 pt) Confusion or Disorientation No (0 pts) Intoxicated or Sedated No (0 pts) Impaired Gait Yes (1 pt) Mobility Assist Device Used Yes (1 pt) Altered Elimination No (0 pt) Score/Fall Risk Level 3 or more points = High Risk Oriented to surroundings, Maintained a safe environment, Educated pt \T\ family on fall prevention, incl call for assistance when getting out of bed, Used ambulatory aids as needed (educated on \T\ assisted with). 04:14 Abuse screen: Denies threats or abuse. Denies injuries from another. Nutritional ha1 screening: No deficits noted. Tuberculosis screening: No symptoms or risk factors identified. Assessment: 02:00 Reassessment: see triage assessment. ha1 03:00 Reassessment: Patient and/or family updated on plan of care and expected duration. Pain ha1 level reassessed. Patient is alert, oriented x 3, equal unlabored respirations, skin warm/dry/pink. 04:00 Reassessment: Patient and/or family updated on plan of care and expected duration. Pain ha1 level reassessed. Patient is alert, oriented x 3, equal unlabored respirations, skin warm/dry/pink. Vital Signs: 01:59 BP 152 / 92; Pulse 71; Resp 18 S; Temp 98.2; Pulse Ox 95% on R/A; Weight 107.95 kg; ha1 Height 5 ft. 6 in. ; 03:00 BP 146 / 98; Pulse 60; Resp 17 S; Pulse Ox 95% on R/A; ha1 04:00 BP 123 / 82; Pulse 63; Resp 17 S; Pulse Ox 95% on R/A; ha1 01:59 Body Mass Index 38.41 (107.95 kg, 167.64 cm) 1 ED Course: 01:58 Patient arrived in ED. ag3 02:00 Arm band placed on right wrist. ha1 02:00 Patient has correct armband on for positive identification. Fall risk band placed. ha1 Placed in gown. Bed in low position. Call light in reach. Side rails up X 1. 02:07 Junior Pinedo DO is Attending Physician. ms3 02:18 Lizy An, USMAN is Primary Nurse. ha1 02:23 Triage completed. ha1 02:30 Inserted saline lock: 20 gauge in left forearm, using aseptic technique. ha1 02:39 CT Head C Spine In Process Unspecified. EDMS 04:37 Provided Education on: follow up . ha1 04:37 No provider procedures requiring assistance completed. IV discontinued, intact, ha1 bleeding controlled, No redness/swelling at site. Pressure dressing applied. Administered Medications: 03:20 Drug: diphenhydrAMINE IVP 25 mg IVP once Route: IVP; Site: left forearm; ha1 04:00 Follow up: Response: No adverse reaction ha1 03:22 Drug: metoCLOPramide IVP 10 mg IVP once; over 1 to 2 minutes Route: IVP; Site: left ha1 forearm; 04:00 Follow up: Response: No adverse reaction ha1 Medication: 04:37 VIS not applicable for this client. ha1 Outcome: 04:21 Discharge ordered by MD. ms3 04:37 Discharged to home via wheelchair, with family, ha1 04:37 Condition: stable 04:37 Discharge instructions given to patient, family, Instructed on discharge instructions, follow up and referral plans. Demonstrated understanding of instructions, follow-up care, 04:38 Patient left the ED. ha1 Signatures: Dispatcher [employer] EDMS Forte Anika 3 Junior Pinedo DO DO ms3 Lizy An RN RN ha1 Corrections: (The following items were deleted from the chart) 02: 02:23 PSHx: pain pump implant; ha1 ha 02:23 PSHx: pain pump implant; ha1 ha 02:23 PSHx: pain pump implant; ha1 ha 02:23 PSHx: pain pump implant; ha1 ha1
--- NOTE | 2023-02-02 04:22 | EDPHYS ---
Physician Documentation [facility] Name: Matti Juarez Age: 52 yrs Sex: Male : 1970 Arrival Date: 02/02/2023 Time: 01:55 Bed 16 Private MD: ED Physician Junior Pinedo HPI: 02/02 02:48 This 52 yrs old Male presents to ER via Wheelchair with complaints of Fall ms3 Injury, Head Injury-Adult. 02:48 52-year-old male with past medical history of cardiac arrest, diabetes, hemorrhagic ms3 stroke, hypertension presents with his status post fall after getting up to go to the restroom. Patient states he has a headache all day and took Tylenol No. 4 without relief of his headache. Patient states that headache is moderate. Patient states he is also having neck pain status post fall. Patient denies any alleviating or inciting factors. Historical: - Allergies: 02:23 Anesthesia; ha1 02:23 Aspirin; ha1 02:23 atorvastatin; ha1 02:23 Iodinated Contrast Media - IV Dye (cardiac arrest); ha1 02:23 Requip; ha1 02:23 ropinirole HCl; ha1 02:23 SHELLFISH; ha1 - PMHx: 02:23 cardiac arrest; Diabetes - NIDDM; heart catheterization; Hemorrhagic Stroke; ha1 Hypertension; Right sided weakness; - PSHx: 02:23 Cholecystectomy; spine fusion; spine stimulator; LEFT HIP; pain pump implant; RIGHT ha1 LOWER ABD; - Immunization history:: Adult Immunizations unknown. - Social history:: Smoking status: Patient denies any tobacco usage or history of. ROS: 02:48 Constitutional: Negative for fever, and chills. Neck: Negative for injury, pain, and ms3 swelling, Cardiovascular: Negative for chest pain, and palpitations. Respiratory: Negative for shortness of breath, cough, wheezing, and pleuritic chest pain, Abdomen/GI: Negative for abdominal pain, nausea, vomiting, diarrhea, and constipation, MS/Extremity: Negative for injury and deformity, Skin: Negative for injury, rash, and discoloration, 02:48 Neuro: Positive for headache, 02:48 All other systems are negative, Exam: 02:48 Constitutional: This is a well developed, well nourished patient who is awake, alert, ms3 and in no acute distress. Head/Face: Normocephalic, atraumatic. Neck: Trachea midline, no cervical lymphadenopathy. Supple, full range of motion without nuchal rigidity, or vertebral point tenderness. No Meningismus. Chest/axilla: Normal chest wall appearance and motion. Nontender with no deformity. Cardiovascular: Regular rate and rhythm with a normal S1 and S2. No gallops, murmurs, or rubs. Normal PMI, no JVD. No pulse deficits. Respiratory: Lungs have equal breath sounds bilaterally, clear to auscultation and percussion. No rales, rhonchi or wheezes noted. No increased work of breathing, no retractions or nasal flaring. Abdomen/GI: Soft, non-tender, with normal bowel sounds. No distension or tympany. No guarding or rebound. No evidence of tenderness throughout. Skin: Warm, dry with normal turgor. Normal color with no rashes, no lesions, and no evidence of cellulitis. Vital Signs: 01:59 BP 152 / 92; Pulse 71; Resp 18 S; Temp 98.2; Pulse Ox 95% on R/A; Weight 107.95 kg; ha1 Height 5 ft. 6 in. ; 03:00 BP 146 / 98; Pulse 60; Resp 17 S; Pulse Ox 95% on R/A; ha1 04:00 BP 123 / 82; Pulse 63; Resp 17 S; Pulse Ox 95% on R/A; ha1 01:59 Body Mass Index 38.41 (107.95 kg, 167.64 cm) [facility] MDM: 02:16 Patient medically screened. ms3 02:48 Differential diagnosis: closed head injury, contusion, fracture, sprain, strain. ms3 04:22 Data reviewed: vital signs, nurses notes, radiologic studies, CT scan, and as a result, ms3 I will discharge patient. I considered the following discharge prescriptions or medication management in the emergency department Medications were administered in the Emergency Department. See MAR. Independent interpretation of the following test(s) in the Emergency Department CT Scan: My interpretation is CT Head without contrast images reviewed do not reveal ICH. Historians other than the Patient:. Counseling: I had a detailed discussion with the patient and/or guardian regarding the historical points, exam findings, and any diagnostic results supporting the discharge/admit diagnosis, radiology results, the need for outpatient follow up, to return to the emergency department if symptoms worsen or persist or if there are any questions or concerns that arise at home. ED course: Discussed CT head and C-spine with patient. Patient to follow-up with primary care physician in 2 to 3 days. Patient stands agrees with plan. All questions were answered. Return precautions discussed include worsening symptoms, or any other concerns. 02/02 02:16 Order name: CT Head C Spine ms3 Administered Medications: 03:20 Drug: diphenhydrAMINE IVP 25 mg IVP once Route: IVP; Site: left forearm; ha1 04:00 Follow up: Response: No adverse reaction ha1 03:22 Drug: metoCLOPramide IVP 10 mg IVP once; over 1 to 2 minutes Route: IVP; Site: left ha1 forearm; 04:00 Follow up: Response: No adverse reaction ha1 Disposition Summary: 02/02/23 04:21 Discharge Ordered Notes: Location: Home ms3 Condition: Stable ms3 Diagnosis - Headache ms3 - Neck pain ms3 Followup: ms3 - With: Private Physician - When: 2 - 3 days - Reason: Recheck today's complaints Discharge Instructions: - Discharge Summary Sheet ms3 - General Headache Without Cause ms3 Forms: - Medication Reconciliation Form ms3 - Thank You Letter ms3 - Antibiotic Education ms3 - Prescription Opioid Use ms3 - Patient Portal Instructions ms3 - Leadership Thank You Letter ms3 Signatures: Dispatcher [employer] EDMS Junior Pinedo DO DO ms3 Lizy An RN RN ha1 Corrections: (The following items were deleted from the chart) 02: 02:23 PSHx: pain pump implant; ha1 ha1 : 02:23 PSHx: pain pump implant; ha1 ha1 : 02:23 PSHx: pain pump implant; ha1 ha1 : 02:23 PSHx: pain pump implant; ha1 ha1
[2023-02-02 05:01] VITALS: BP 123/82; TEMP 98.2; O2SAT 95
--- NOTE | 2023-02-02 22:21 | RAD REPORT ---
EXAM DESCRIPTION: CT Head and Cervical Spine Without Intravenous Contrast CLINICAL HISTORY: The patient is 52 years old and is Male; fall TECHNIQUE: Axial computed tomography images of the head/brain and cervical spine without intravenous contrast. Sagittal and coronal reformatted images were created and reviewed. This CT exam was pe rformed using one or more of the following dose reduction techniques: automated exposure control, a djustment of the mA and/or kV according to patient size, and/or use of iterative reconstruction techn ique. COMPARISON: No relevant prior studies available. FINDINGS: Brain: Small remote infarct in the left periventricular white matter. No hemorrhage. Ventricles: Unremarkable. No ventriculomegaly. Skull: No acute fracture. Sinuses: Unremarkable as visualized. No acute sinusitis. Mastoid air cells: Unremarkable as visualized. No mastoid effusion. Vertebrae: See below. Discs/spinal canal/neural foramina: Multilevel disc space narrowing with degenerative endplate ch anges most prominent at C5-6. Soft tissues: Unremarkable. IMPRESSION: No acute intracranial abnormality. No acute findings in the cervical spine. Electronically signed by: He Winter MD 02/02/2023 3:01 AM CDT Due to temporary technical issues with the PACS/Fluency reporting system, reports are being signed by the in house radiologists without review as a courtesy to insure prompt reporting. The interpreting radiologist is fully responsible for the content of the report.
== END 2023-02-02 04:38 | disposition home or self-care (01) ==
LOC: ER 01:55
DX: R51.9 Headache, unspecified (principal); M54.2 Cervicalgia; E11.9 Type 2 diabetes mellitus without complications; I10 Essential (primary) hypertension; Z88.4 Allergy status to anesthetic agent; Z88.6 Allergy status to analgesic agent; Z88.8 Allergy status to other drugs, medicaments and biological substances; Z91.013 Allergy to seafood; Z91.041 Radiographic dye allergy status
CPT/HCPCS: 70450; 72125; 96375; 96374; 99284; J2765; J1200